=== PATIENT | female | born 1945 | race Caucasian/White ===

== ENCOUNTER 2016-10-04 20:22 | Day surgery (SDC) | payer MEDICARE, MEDICAID ==
[~2016-10-04] VITALS: Ht 149.9 cm; Wt 142.9 kg
[~2016-10-04 20:22] MED LIST: CEPH500T PO; CHOL100055 PO; DIPH25TA54 PO; DOCU-175 PO; GEMF600T3 PO; HYDR-4078 PO; INSU100V13 SQ; INSU100V8 SQ; LEVO150T11 PO; LISI1TAB83 PO; MAGN400T6 PO; MULT-933 PO; NIAC500T22 PO; OXYC1TAB8 PO; PANT40TA PO; PRED5TAB PO; RIVA20TA PO; SOTA80TA PO; SUCR1TAB PO; TIZA4TAB4 PO; TRAM50TA53 PO
--- OUTSIDE RECORDS SUMMARY | 2016-10-04 20:26 | XMS REPORT | Continuity of Care Document ---
Author Author [facility] Organization [facility] Address Unknown Phone Unavailable Support Name Relationship Address Phone JAN MALAGON MD Caregiver [address] [place] [address] Unavailable TYSON JEAN DO Caregiver [address] [place] [address] Unavailable HEATHER THOMAS Next Of Kin [address] [place], [place] [id number] Insurance Providers Guarantor Juliann Rogers Address [address] [address] Email Payer Medicaid Policy Number [id number] Subscriber's Name Juliann Rogers Relationship 18 Self Effective Date 16 Expiration Date 16 Payer Medicare Policy Number [id number] Subscriber's Name Juliann Rogers Relationship 18 Self Advance Directives Directive Response Recorded Date/Time Advanced Directives Type None 05/13/16 12:59pm Chief Complaint and Reason for Visit Chief Complaint Headache Reason for Visit Headache [id number] Problems Active Problems Medical Problem Onset Date Status 13 mm left ureteral stone Unknown Acute ABDOMINAL PAIN,CONSTIPATION Unknown Acute Acute kidney injury Unknown Resolved Acute respiratory failure with hypoxia Unknown Acute Allergic drug rash Unknown Acute Atrial flutter with rapid ventricular response Unknown Resolved Chronic GERD Unknown Chronic Chronic use of steroids Unknown Chronic Diabetes type 2, controlled Unknown Chronic Generalized weakness Unknown Acute Headache Unknown Acute Hypertension Unknown Chronic Hypothyroidism Unknown Chronic Morbid obesity Unknown Chronic Obstructive uropathy Unknown Acute Pulmonary edema Unknown Acute Pyelonephritis Unknown Acute Retained ureteral stent Unknown Acute Septic shock Unknown Resolved Ureterolithiasis Unknown Acute Past Problems Medical Problem Onset Date Chest pain Unknown Fall Unknown Left flank pain Unknown Lipoma of abdominal wall Unknown Narcotic overdose Unknown Polypharmacy Unknown Sepsis Unknown UTI (urinary tract infection) Unknown Ureteral colic Unknown Urinary tract infection Unknown Medications Current Home Medications Medication Dose Units Route Directions Days Qty Instructions Start Date Cephalexin 500 Mg Tablet 500 Mg Oral Twice A Day 05/13/16 Cholecalciferol (Vitamin D3) (Vitamin D) 1,000 Unit Capsule 3,000 Unit Oral Bedtime 05/13/16 Diphenhydramine Hcl (Benadryl Allergy) 25 Mg Tablet 25 Mg Oral Bedtime 05/13/16 Docusate Sodium 100 Mg Capsule 100 Mg Oral Bedtime 05/13/16 Gemfibrozil 600 Mg Tablet 600 Mg Oral Bedtime 01/25/16 Hydrocodone/Acetaminophen ([place] 10-325 Tablet) 10-325 Tablet 1 Tab Oral Three Times A Day as needed for Pain 01/27/16 Insulin Aspart (Novolog) 100 Unit/Ml Inj 30-35 Unit Sub-Q Three Times Daily With Meals 01/25/16 Insulin Glargine,Hum.rec.anlog (Lantus) 100 Unit/Ml Inj 45 Unit Sub-Q Bedtime 03/26/16 Levothyroxine Sodium 150 Mcg Tablet 150 Mcg Oral Before Breakfast 01/25/16 Lisinopril/Hydrochlorothiazide (Lisinopril-Hctz 03/26.5 Tablet) 1 Tab Tablet 0.5 Tab Oral Daily 03/14/10 Magnesium Oxide 400 Mg Tablet 400 Mg Oral Twice A Day 03/26/16 Multivitamin (Multi-Day Vitamins) 1 Each Tablet 1 Tab Oral Daily 04/16/16 Niacinamide (Niacin) 500 Mg Tablet 1,000 Mg Oral Bedtime 05/13/16 Oxycodone Hcl/Acetaminophen (Percocet 5-325 Mg Tablet) 5-325 Tablet 1-2 Tab Oral Every 6 Hours as needed for Pain 15 Tablet Take 1 tablet, by mouth, every 4 hours as needed for pain. 04/16/16 Pantoprazole Sodium (Protonix) 40 Mg Tablet.dr 40 Mg Oral Daily 01/25/16 Prednisone 5 Mg Tablet 5 Mg Oral Daily 05/13/15 Rivaroxaban (Xarelto) 20 Mg Tablet 20 Mg Oral Daily 03/26/16 Sotalol Hcl (Sotalol) 80 Mg Tablet 40 Mg Oral Twice A Day Sucralfate 1 Gm Tablet 1 Gm Oral Four Times Daily 04/16/16 Tizanidine Hcl 4 Mg Tablet 4 Mg Oral Bedtime 01/25/16 Tramadol Hcl (Ultram) 50 Mg Tablet 50 Mg Oral Three Times A Day as needed for Pain 01/25/16 Past Home Medications Medication Directions Ordered Status "Thyroid 180 Mcg" , Daily 04/28/08 Discontinued Amaryl 6 Mg , Twice A Day 04/28/08 Discontinued Cyclobenzaprine Hcl (Flexeril) 5 Mg Tablet, As Needed 04/28/08 Discontinued Furosemide (Lasix) 40 Mg Tablet, Daily 04/28/08 Discontinued Gemfibrozil (Lopid) 600 Mg Tablet, 600 Mg Oral Twice A Day 03/14/10 Discontinued Insulin Glargine (Lantus) 100 U/Ml Vial, 92 Unit Sub-Q Qhs 03/14/10 Discontinued Levothyroxine Sodium 88 Mcg Tablet, 88 Mcg Oral Daily 03/14/10 Discontinued Lisinopril/Hydrochlorothiazide (Lisinopril-Hctz 10.5 Tab) 1 Tab Tablet, 1 Tab Oral Daily 12/07/09 Discontinued Lisinopril/Hydrochlorothiazide (Lisinopril-Hctz 03/26.5 Tab) 1 Tab Tablet, Daily 04/28/08 Discontinued Lopid , Twice A Day 04/28/08 Discontinued Lyrica , 04/28/08 Discontinued [place]-3 Fatty Acids (Fish Oil) 500 Mg Capsule.dr, 3 Tab Oral Twice A Day 13/04 Discontinued Oxycodone , As Needed 04/28/08 Discontinued Potassium Chloride (K-Dur) 20 Meq Tab.prt.sr, 20 Meq Oral Twice A Day Discontinued Prandin 2 Mg , Three Times A Day 04/28/08 Discontinued Prednisone 25 Mg , Daily 04/28/08 Discontinued Rosiglitazone Maleate (Avandia) 4 Mg Tablet, Twice A Day 04/28/08 Discontinued Sennosides (Senna) 8.6 Mg Capsule, 1 Tab Oral Daily 03/14/10 Discontinued Simvastatin (Zocor) 40 Mg Tablet, 80 Mg Oral Daily 03/14/10 Discontinued Torodol , As Needed 04/28/08 Discontinued Ultram , As Needed 04/28/08 Discontinued Social History Social History Problem Response Recorded Date/Time Onset Date Status Chewing Tobacco Status No 04/08/2013 2:28pm Not Applicable Not Applicable Hx Substance Use No 05/13/2016 1:30pm Not Applicable Not Applicable Hx Alcohol Use No 05/13/2016 1:30pm Not Applicable Not Applicable Has the pt used tobacco in the last 12 months No 02/13/2016 5:14pm Not Applicable Not Applicable Tobacco Usage none 05/13/2015 8:47pm Not Applicable Not Applicable Query Response Start Date Stop Date Smoking Status Former smoker Hospital Discharge Instructions No hospital discharge instructions. Plan of Care Discharge Date 05/13/16 3:30pm Disposition 01 DISCHARGED HOME, SELF-CARE Condition at Discharge Stable Instructions/Education Provided DI for Gastroesophageal Reflux Disease (GERD) DI for Headache Prescriptions See Medication Section Referrals JAN MALAGON MD Address: [address] [place] [id number] Additional Instructions/Education Continue with your medications as scheduled for reflux. I would advise that you follow up with Dr. Chavez for reevaluation if your irregular heart rate and irregular blood pressures continue. If you continue to have trouble with your headache then follow up with your primary care provider or return to Er. Care Plan and Goals Physician Care Plan Problem:GERD, chest pain Goal: Follow up with primary care provider Instructions: Take medications and follow care plan as discussed/written Functional Status No functional status results. Allergies, Adverse Reactions, Alerts Allergen Type Severity Reaction Status Last Updated butorphanol tartrate Allergy Intermediate HALLUCINATIONS Active 05/13/16 Iodinated Contrast Media - IV Dye Allergy Severe HIVES, SOA Active Salicylates Allergy Severe SOA, RASH Active 05/13/16 Penicillin Allergy Severe SOA, RASH Active 05/13/16 Sulfa (Sulfonamide Antibiotics) Allergy Severe RASH, SOA Active 05/13/16 Morphine Adverse Reaction Unknown vomiting Active 05/13/16 Codeine Allergy Severe SOA, RASH Active 05/13/16 Aspirin Allergy Severe ANAPHYLACTIC SHOCK Active 05/13/16 Levofloxacin Allergy Severe RASH Active 05/13/16 Latex Allergy Severe SOA,HIVES Active 05/13/16 Immunizations Query Response on File Recorded Date/Time Hx Influenza Vaccination Y fall 201402/13/16 5:14pm Hx Pneumococcal Vaccination Y fall 200602/13/16 5:14pm Hx Influenza Vaccination Y fall 201402/13/16 5:14pm Influenza Vaccine Hx MARCH 2015 05/13/16 1:30pm Vital Signs Acute Vital Signs Vital Response Date/Time Temperature (Fahrenheit) 98.5 deg F (96.8 - 99.1) 05/13/2016 3:30pm Temperature (Calculated Celsius) 36.75795 degrees C (36.0 - 37.3) 05/13/2016 3:30pm Temperature Source Oral 02/20/2016 3:20pm Pulse Rate (adult) 93 bpm (60 - 100) 05/13/2016 3:30pm Respiratory Rate 20 breaths/min (10 - 20) 05/13/2016 3:30pm O2 Sat by Pulse Oximetry 95 % (90 - 100) 05/13/2016 3:30pm Oxygen Delivery Method Nasal Cannula 02/25/2016 9:58am Oxygen Delivery Method Nasal Cannula 02/25/2016 7:17am Oxygen Flow Rate 2.00 L/min 05/13/2016 3:30pm Blood Pressure 175/81 mm Hg 05/13/2016 3:30pm Blood Pressure Source Automatic Cuff 02/25/2016 7:55am Height (Feet) 4 feet 05/13/2016 12:59pm Height (Inches) 11.00 inches 05/13/2016 12:59pm Weight (Kilograms) 134.100 kg 05/13/2016 12:59pm Body Mass Index (BMI) 59.0 05/13/2016 12:59pm Results Laboratory Results Test Name Result Units Flags Reference Collection Date/Time Result Date/ Time Comments Neutrophils % (Manual) 58.0 % 33-66 02/24/2016 4:44am 02/24/2016 5: 22am Band Neutrophils % 2.0 % 0-6 02/24/2016 4:44am 02/24/2016 5:22am Lymphocytes % (Manual) 32.0 % 23-45 02/24/2016 4:44am 02/24/2016 5: 22am Monocytes % (Manual) 5.0 % 0-9.0 02/24/2016 4:44am 02/24/2016 5:22am Eosinophils % (Manual) 3.0 % 0-4 02/24/2016 4:44am 02/24/2016 5:22am Band Neutrophils # 0.2 T/MM3 02/24/2016 4:44am 02/24/2016 5:22am Absolute Neutrophils (Manual) 4.6 T/MM3 1.8-7.7 02/24/2016 4:44am 02/23 5:22am Lymphocytes # (Manual) 2.6 T/MM3 1-4.8 02/24/2016 4:44am 02/24/2016 5: 22am Monocytes # (Manual) 0.4 T/MM3 0-0.8 02/24/2016 4:44am 02/24/2016 5: 22am Eosinophils # (Manual) 0.2 T/MM3 0-0.5 02/24/2016 4:44am 02/24/2016 5: 22am Red Cell Morphology Comment NORMAL 02/24/2016 4:44am 02/24/2016 5: 22am Anisocytosis 1+ 02/13/2016 2:48pm 02/13/2016 3:22pm Total Bilirubin 0.40 MG/DL 0.20-1.30 02/24/2016 4:44am 02/24/2016 5: 21am Alkaline Phosphatase 64 U/L 38-126 02/24/2016 4:44am 02/24/2016 5:21am Total Protein 7.6 G/DL 6.3-8.2 02/24/2016 4:44am 02/24/2016 5:21am Albumin 3.5 G/DL 3.5-5.0 02/24/2016 4:44am 02/24/2016 5:21am Globulin 4.1 G/DL H 2.4-3.6 02/24/2016 4:44am 02/24/2016 5:21am Albumin/Globulin Ratio 0.9 RATIO L 1.1-2.2 02/24/2016 4:44am 02/24/2016 5:21am Aspartate Amino Transf (AST/SGOT) 21 U/L 14-36 02/24/2016 4:44am 2015 5:21am Alanine Aminotransferase (ALT/SGPT) 11 U/L 9-52 02/24/2016 4:44am 02/23 5:21am Magnesium Level 2.1 MG/DL 1.6-2.3 02/25/2016 4:12am 02/25/2016 10:53am Procalcitonin 14.68 NG/ML *H 02/18/2016 3:39am 02/18/2016 5:59am PCT < /=0.5 ng/mL - sepsis not likely; PCT >0.5 and </=2 ng/mL - sepsis possible; PCT >2 ng/mL - sepsis likely; PCT >/=10 ng/mL - systemic inflammatory response - sepsis or septic shock highly indicated. Thyroid Stimulating Hormone (TSH) 3.53 MIU/L 0.47-4.68 02/15/2016 9: 25pm 02/15/2016 10:16pm Urine WBC Clumps FEW 02/13/2016 2:54pm 02/13/2016 3:12pm Glucometer 93 mg/dL 65-110 02/25/2016 11:08am 02/25/2016 1:29pm Plasma Lactate 1.1 MMOL/L 0.6-2.2 03/11/2016 5:17am 03/11/2016 5:33am Urine Squamous Epithelial Cells 5-10 03/11/2016 6:33am 03/11/2016 7 :09am Urine WBC TNTC /HPF H 0-5 03/25/2016 11:45am 03/25/2016 12:49pm Urine RBC 10-20 /HPF H 0-3 03/25/2016 11:45am 03/25/2016 12:49pm Urine Bacteria 2+ H NEGATIVE 03/25/2016 11:45am 03/25/2016 12:49pm Urine Culture Indicated CULT REFLEXED &SETUP 03/25/2016 11:45am 04/2016 12:49pm Lipase 208 U/L 23-300 03/26/2016 8:26pm 03/26/2016 9:18pm Urine Collection Type CLEANCATCH-MIDSTREAM 04/16/2016 12:16pm 04/16 12:28pm Urine Color YELLOW YELLOW 04/16/2016 12:16pm 04/16/2016 12:28pm Urine Turbidity CLEAR CLEAR 04/16/2016 12:16pm 04/16/2016 12:28pm Urine Specific Dixon <=1.005 L 1.015-1.025 04/16/2016 12:16pm 2015 12:28pm Urine pH 6.5 5.0-8.0 04/16/2016 12:16pm 04/16/2016 12:28pm Urine Leukocyte Esterase NEGATIVE NEGATIVE 04/16/2016 12:16pm 2015 12:28pm Urine Nitrite NEGATIVE NEGATIVE 04/16/2016 12:16pm 04/16/2016 12: 28pm Urine Protein NEGATIVE NEGATIVE 04/16/2016 12:16pm 04/16/2016 12: 28pm Urine Glucose (UA) NEGATIVE NEGATIVE 04/16/2016 12:16pm 04/16/2016 12 :28pm Urine Ketones NEGATIVE NEGATIVE 04/16/2016 12:16pm 04/16/2016 12: 28pm Urine Urobilinogen 0.2 EU/DL NORMAL 04/16/2016 12:16pm 04/16/2016 12: 28pm Urine Bilirubin NEGATIVE NEGATIVE 04/16/2016 12:16pm 04/16/2016 12: 28pm Urine Blood TRACE-INTACT A NEGATIVE 04/16/2016 12:16pm 04/16/2016 12: 28pm Urinalysis Comment MICROSCOPIC NOT IND. 04/16/2016 12:16pm 2015 12:28pm White Blood Count 8.1 T/MM3 4.5-11.0 05/13/2016 12:35pm 05/13/2016 1: 20pm Red Blood Count 4.23 M/MM3 4.00-5.20 05/13/2016 12:35pm 05/13/2016 1: 20pm Hemoglobin 11.6 GM/DL L 12-16 05/13/2016 12:35pm 05/13/2016 1:20pm Hematocrit 36.9 % 36-46 05/13/2016 12:35pm 05/13/2016 1:20pm Mean Corpuscular Volume 87.2 UM3 80-100 05/13/2016 12:35pm 05/13/2016 1 :20pm Mean Corpuscular Hemoglobin 27.4 UUG 26-34 05/13/2016 12:35pm 2015 1:20pm Mean Corpuscular Hemoglobin Concent 31.4 GM/DL 31-37 05/13/2016 12:35pm 05/13/2016 1:20pm RDW Standard Deviation 47.9 FL 36.9-50.2 05/13/2016 12:35pm 05/13/2016 1:20pm Platelet Count 305 T/MM3 130-400 05/13/2016 12:35pm 05/13/2016 1:20pm Mean Platelet Volume 10.4 UM3 9.4-12.4 05/13/2016 12:35pm 05/13/2016 1: 20pm Neutrophils (%) (Auto) 69.2 % H 33-66 05/13/2016 12:35pm 05/13/2016 1: 20pm Lymphocytes (%) (Auto) 20.3 % L 23-45 05/13/2016 12:35pm 05/13/2016 1: 20pm Monocytes (%) (Auto) 7.4 % 0-9.0 05/13/2016 12:35pm 05/13/2016 1:20pm Eosinophils (%) (Auto) 2.7 % 0-4 05/13/2016 12:35pm 05/13/2016 1:20pm Basophils (%) (Auto) 0.2 % 0-2 05/13/2016 12:35pm 05/13/2016 1:20pm Immature Granulocyte % (Auto) 0.2 % 0.0-0.5 05/13/2016 12:35pm 2015 1:20pm Absolute Neutrophils (auto) 5.6 T/MM3 1.8-7.7 05/13/2016 12:35pm 2015 1:20pm Absolute Lymphocytes (auto) 1.6 T/MM3 1-4.8 05/13/2016 12:35pm 2015 1:20pm Absolute Monocytes (auto) 0.6 T/MM3 0-0.8 05/13/2016 12:35pm 2015 1:20pm Absolute Eosinophils (auto) 0.2 T/MM3 0-0.5 05/13/2016 12:35pm 2015 1:20pm Absolute Basophils (auto) 0.0 T/MM3 0-0.2 05/13/2016 12:35pm 2015 1:20pm Absolute Immature Granulocyte (auto 0.02 T/MM3 0.00-0.03 05/13/2016 12: 35pm 05/13/2016 1:20pm Icterus Index < 2 0-7 05/13/2016 12:35pm 05/13/2016 1:29pm Chemistry Specimen Hemolysis < 15 0-25 05/13/2016 12:35pm 05/13/2016 1:29pm 0-25: Specimen Exhibited No Hemolysis. Turbidity < 20 0-20 05/13/2016 12:35pm 05/13/2016 1:29pm Sodium Level 143 MEQ/L 134-144 05/13/2016 12:35pm 05/13/2016 1:29pm Potassium Level 4.2 MEQ/L 3.6-5 05/13/2016 12:35pm 05/13/2016 1:29pm Chloride Level 102 MEQ/L 98-107 05/13/2016 12:35pm 05/13/2016 1:29pm Carbon Dioxide Level 29 MEQ/L 22-30 05/13/2016 12:35pm 05/13/2016 1: 29pm Anion Gap 12 MEQ/L 5-15 05/13/2016 12:35pm 05/13/2016 1:29pm Blood Urea Nitrogen 27.0 MG/DL H 7-17 05/13/2016 12:35pm 05/13/2016 1: 29pm Creatinine 1.0 MG/DL 0.7-1.2 05/13/2016 12:35pm 05/13/2016 1:29pm BUN/Creatinine Ratio 27 RATIO H 6-26 05/13/2016 12:35pm 05/13/2016 1: 29pm Glomerular Filtration Rate Calc 55 05/13/2016 12:35pm 05/13/2016 1: 29pm Glucose Level 108 MG/DL 65-110 05/13/2016 12:35pm 05/13/2016 1:29pm Calculated Osmolality 281 MOSM/KG H 261-280 05/13/2016 12:35pm 2015 1:29pm Calcium Level 9.6 MG/DL 8.4-10.2 05/13/2016 12:35pm 05/13/2016 1:29pm Troponin I < 0.012 ng/ml 0-0.12 05/13/2016 12:35pm 05/13/2016 1:41pm Troponin values with a difference of 55% increase from orginal troponin value represent a true biological DELTA value. (%increase Calc=Orginal Troponin value, divided by subsequent Troponin value, multiplied by 100) Microbiology Results Procedure Source Organism/Result Collection Date/Time Result Date/Time Result Status Urine Culture Urine, Wang Indwelling NO GROWTH AFTER 48 HOURS 02/18/2016 5 :55am 02/20/2016 8:16am Final Blood Culture Peripheral/Iv Start NO GROWTH AFTER 5 DAYS 03/11/2016 5:17am 03/16/2016 5:21am Final Urine Culture Urine, Clean Catch-Midstream MANSI PARAPSILOSIS 03/11/2016 7:13am 03/14/2016 10:11am Final Urine Culture Urine, Voided-Not Cc-Midstream ESCHERICHIA COLI 03/25/2016 12 :49pm 03/27/2016 8:23am Final Name: JULIANN ROGERS Unit #: [id number] : 1945 Sex: F Admit Date: Loc / Svc: ED Discharge Date: DIAGNOSTIC IMAGING REPORT Report #: [id number] [facility] ROSA M Coppola Indication: ITS.REASON: chest pressure PROCEDURE: CHEST 1 VIEW: Encounter: Initial Comparison: 03/26/2016 Findings: There is mild prominence of the cardiac silhouette which may be accentuated by the AP portal technique. The lungs are clear. No definite pleural effusion. No mediastinal or hilar adenopathy. 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 Impression: No acute cardiopulmonary process. . Procedures Procedure Status Date Provider(s) CYSTOSCOPY AND TREATMENT Completed 02/13/16 JOAQUÍN BANKS MD REMOVAL OF INTRALUMINAL DEVICE FROM URETER, ENDO Completed 02/20/16 JOAQUÍN BANKS MD METABOLIC PANEL TOTAL CA Completed 02/27/16 CULTURE AEROBIC IDENTIFY Completed 02/27/16 URINE CULTURE/COLONY COUNT Completed 02/27/16 MICROBE SUSCEPTIBLE LISA Completed 02/27/16 ROUTINE VENIPUNCTURE Completed 03/11/16 INSERT BLADDER CATHETER Completed 03/11/16OctoberMAURY DO CT ABD & PELVIS W/O CONTRAST Completed 03/11/16 METABOLIC PANEL TOTAL CA Completed 03/11/16 URINALYSIS AUTO W/SCOPE Completed 03/11/16 ASSAY OF LACTIC ACID Completed 03/11/16 ASSAY OF LIPASE Completed 03/11/16 COMPLETE CBC W/AUTO DIFF WBC Completed 03/11/16 BLOOD CULTURE FOR BACTERIA Completed 03/11/16 BLOOD CULTURE FOR BACTERIA Completed 03/11/16 URINE CULTURE/COLONY COUNT Completed 03/11/16 HYDRATE IV INFUSION ADD-ON Completed 03/11/16 THER/PROPH/DIAG INJ IV PUSH Completed 03/11/16 TX/PRO/DX INJ NEW DRUG ADDON Completed 03/11/16 TX/PRO/DX INJ NEW DRUG ADDON Completed 03/11/16 TX/PRO/DX INJ NEW DRUG ADDON Completed 03/11/16 EMERGENCY DEPT VISIT Completed 03/11/16 [id number] ITEM OR SERVICE Completed 03/11/16 746963"INJECTION, DIPHENHYDRAMINE HCL, UP TO 50 MG" Completed 03/11/16 215053"INJECTION, KETOROLAC TROMETHAMINE, PER 15 MG" Completed 03/11/16 443510"INJECTION, ONDANSETRON HYDROCHLORIDE, PER 1 MG" Completed 03/11/16 372230"INJECTION, FENTANYL CITRATE, 0.1 MG" Completed 03/11/16 367923"INFUSION, NORMAL SALINE SOLUTION , 1000 CC" Completed 03/11/16 URINALYSIS AUTO W/SCOPE Completed 03/25/16 CULTURE AEROBIC IDENTIFY Completed 03/25/16 URINE CULTURE/COLONY COUNT Completed 03/25/16 MICROBE SUSCEPTIBLE LISA Completed 03/25/16 ROUTINE VENIPUNCTURE Completed 03/26/16 CHEST X-RAY 1 VIEW FRONTAL Completed 03/26/16 METABOLIC PANEL TOTAL CA Completed 03/26/16 ASSAY OF LIPASE Completed 03/26/16 ASSAY OF TROPONIN QUANT Completed 03/26/16 COMPLETE CBC W/AUTO DIFF WBC Completed 03/26/16 ELECTROCARDIOGRAM TRACING Completed 03/26/16 THER/PROPH/DIAG INJ IV PUSH Completed 03/26/16 EMERGENCY DEPT VISIT Completed 03/26/16 [id number] ITEM OR SERVICE Completed 03/26/16 [id number] ITEM OR SERVICE Completed 03/26/16 017826"INJECTION, HYDROMORPHONE, UP TO 4 MG" Completed 03/26/16 Compound Drug, Not Otherwise Classified Completed 03/26/16 Encounters Encounter Location Arrival/Admit Date Discharge/Depart Date Attending Provider Departed Emergency Room [facility] 05/13/16 12:57pm 05/13/16 3: 30pm TYSON JEAN DO Departed Emergency Room [facility] 04/16/16 11:24am 04/16/16 1: 50pm OCTOBERMAURY DO Departed Emergency Room [facility] 03/26/16 7:58pm 03/26/16 10: 05pm GEM HOGAN MD [facility] 03/25/16 12:13pm JAN MALAGON MD Departed Emergency Room [facility] 03/11/16 4:32am 03/11/16 8: 40am KOLBY SIMPSON MD Registered Clinic [facility] 02/27/16 12:45pm JAN MALAGON MD Discharged Inpatient [facility] 02/13/16 3:35pm 02/25/16 2:55pm JAN MALAGON MD Recent Diagnosis
--- OUTSIDE RECORDS SUMMARY | 2016-10-04 20:27 | XMS REPORT | Continuity of Care Document ---
Author Author [facility] Organization [facility] Address Unknown Phone Unavailable Allergies Medications Problems Date Dx Coded Attending Type Code Diagnosis Diagnosed By 05/14/2015 JAN MALAGON MD M15.0 Primary generalized (osteo)arthritis 05/14/2015 JAN MALAGON MD M62.81 Muscle weakness (generalized) Procedures Code [place] [address] PT EVALUATION JAN MALAGON MD 04/23/2015 Results Encounters ACCT No. Visit Date/Time Discharge Status Pt. Type Provider Facility Loc./Unit Complaint [id number] 05/15/2015 00:01:00 2014 23:59:00 DIS Outpatient JAN MALAGON MD [id number] 04/23/2015 15:31:00 2014 23:59:00 DIS Outpatient JAN MALAGON MD
--- NOTE | 2016-10-04 20:54 | ERPDOC ---
Departure Disposition Decision Date: Oct 04, 2016 Disposition Decision Time: 23:05 Disposition: 02 TO [facility] Impression Impression Impression: Primary Impression: GI bleeding GI bleed type/associated pathology: anorectal hemorrhage Qualified Codes: K62.5 - Hemorrhage of anus and rectum Additional Impression: UTI (urinary tract infection) Urinary tract infection type: acute cystitis Hematuria presence: with hematuria Qualified Codes: N30.01 - Acute cystitis with hematuria Severity: Moderate Condition: Stable Seen By: Mid-level only Referrals: JAN GANN MD (Family) Problems/Meds/Labs Reviewed?: Yes Medications reviewed and manag: Yes Follow up care ordered?: Yes Mental Status: Alert, Oriented HPI - Abdominal Pain General Chief Complaint: GI Bleed Stated Complaint: CRAMPS LOWER ABD,BLEEDING X 3DAYS Time Seen by Provider: 20:40 Source: patient HPI - Abdominal Pain Initial Comments 71 YO F brought to ED by EMS with report of abdominal cramping, rectal bleeding , dysuria and urinary frequency. Patient states that she has been constipated for past 3 days. She has been straining to pass stool and had had bright red blood with passing of stools. This evening patient inserted a glycerin suppository to help soften stool. Says that when she inserted suppository she had burning in her rectum. Says that rectal bleeding became more profuse after that. Patient also report that she thinks she may have a UTI due to dysuria and urinary frequency the past 3 days. Patient is on Xarelto. Pain Scale: Now: 4/10 (camping and rectal burning) Quality: cramping Location: RLQ, LLQ, suprapubic Associated Symptoms: DENIES: back pain, chest pain, diaphoresis, fatigue, fever /chills, headache, heartburn, nausea/vomiting, rash, shortness of breath, swelling/mass in abdomen, syncope, weakness Allergies: Coded Allergies: Iodinated Contrast Media - Oral and (Verified Allergy, Severe, HIVES, SOA , 10/04/16) Penicillins (Verified Allergy, Severe, SOA, RASH, 10/04/16) Salicylates (Verified Allergy, Severe, SOA, RASH, 10/04/16) Sulfa (Sulfonamide Antibiotics) (Verified Allergy, Severe, RASH, SOA, 10/04) aspirin (Verified Allergy, Severe, ANAPHYLACTIC SHOCK, 10/04/16) codeine (Verified Allergy, Severe, SOA, RASH, 10/04/16) latex (Verified Allergy, Severe, SOA,HIVES, 10/04/16) levofloxacin (Verified Allergy, Severe, RASH, 10/04/16) 'LIPS SWELL SHUT AND I CAN'T BREATHE' butorphanol tartrate (Verified Allergy, Intermediate, HALLUCINATIONS, 10/04) morphine (Verified Adverse Reaction, Unknown, vomiting, 10/04/16) Past History Past Medical History Metabolic: diabetes, hypercholesterolemia, hypertension, hypothyroidism Cardiac: A-fib, DENIES: angina Respiratory: COPD GI: GERD Female: UTI, kidney stones Neurological: fibromyalgia, headaches Musculoskeletal: osteoarthritis Psychological: depression Surgical History General: gallbladder Reproductive/: hysterectomy Family History Family PMH: FOUND: [place], cancer, diabetes, hypertension Vaccines Hx Influenza Vaccination: Yes (fall 2014) Hx Pneumococcal Vaccination: Yes (FALL 2006) Social History Does patient use chewing tobac: No Second Hand Exposure: No Substance Use Type: does not use Alcohol Intake: none Review of Systems Constitutional Constitutional: DENIES: chills, dizziness, fever, weakness Eyes General: DENIES: erythema, exudate Lids/Accessories: DENIES: erythema, swelling ENMT Ears: DENIES: pain Sinuses: DENIES: congestion, rhinorrhea Mouth/Throat: DENIES: sore throat Cardiovascular Cardiac: DENIES: chest pain, murmur Rhythm/Rate: DENIES: palpitations Pulmonary Respiratory: DENIES: cough, dyspnea GI Upper Abdomen: DENIES: nausea, pain, vomiting Lower Abdomen: blood in stool, constipation, pain, see HPI General: dysuria, frequency, urgency Musculoskeletal General: DENIES: joint pain, pain, tenderness Integumentary Skin: DENIES: color change, itching, rash Neurological General: DENIES: ataxia, change in strength, numbness, paralysis/paresis, weakness Psychiatric Psychiatric: DENIES: anxiety, depression, nervousness Physical Exam General General Nourishment: well nourished, well developed, adult, obese General Body Habitus: disheveled Vitals and Pain First Documented Vital Signs Date Time Temp Pulse Resp B/P Pulse Ox O2 Delivery O2 Flow Rate FiO2 10/04/16 20:22 98.1 86 20 179/89 94 Room Air Weight: Kilograms: Height (feet): 4 Height (inches): 11.00 Triage Pain Scale: Eyes (brief) Eyes Brief: found: EOMI ENMT (brief) ENMT Brief: NOT FOUND: nasal exudate, nasal swelling Neck (brief) Neck: FOUND: trachea midline Respiratory (brief) Respiratory: FOUND: clear all baig, equal bilaterally, symmetrical Cardiovascular (brief) Cardiac: FOUND: regular rate, regular rhythm Abdomen Inspection: NOT FOUND: distention Palpation: FOUND: soft, NOT FOUND: involuntary guarding, rebound, tender, voluntary guarding Auscultation: FOUND: normoactive (x4) Rectal: FOUND: external hemorrhoids, gross blood, heme positive stools, sphincter normal tone, NOT FOUND: fissure, fistula, internal hemorrhoids, thrombosed hemorrhoids Musculoskeletal (brief) Musculoskeletal Brief: NOT FOUND: deformity, loss of motion Integumentary (brief) Integumentary Brief: FOUND: dry, pink, warm Neurologic (brief) Neurological Brief: FOUND: motor-no gross deficits, sensory-no gross deficits Psychiatric (brief) Psychiatric Brief: FOUND: alert, oriented Differential Diagnoses Considering: Constipation, Diverticulitis, GI Bleed, Ulcer, UTI, Other ( Hemorrhoids, rectal fissure) Progress Results/Orders Orders Procedure Category Date Status Time Iv Lock (Ed Only) EDM 10/04/16 Transmitted 20:50 Nothing By Mouth (Ed EDM 10/04/16 Transmitted Only) 20:50 Cbc W/Auto LAB 10/04/16 Complete Diff-Reflex Manual 20:50 Cmp - Comprehensive LAB 10/04/16 Complete Metabolic 20:50 Ondansetron Inj PHA 10/04/16 Complete (Zofran) 21:00 UA, LAB 10/04/16 Complete Dip&Micro(Complete) & 22:40 Urine Culture LISA 10/04/16 In Process 22:56 Measure Vital Signs JD 10/04/16 In Process 23:39 Up In Room With Assist JD 10/04/16 In Process 23:39 Npo: Nothing By Mouth DIET 10/05/16 Transmitted Breakfast Iv Lock (Nursing) JD 10/04/16 In Process 23:39 Normal Saline (Normal PHA 10/04/16 In Process Saline Iv) 23:39 Notify Adm Physician JD 10/04/16 In Process In Am 23:39 Physician Consult CONS 10/04/16 Transmitted 23:39 Insulin Glargine PHA 10/04/16 Complete (Lantus) 23:45 Pantoprazole PHA 10/05/16 In Process (Protonix Iv) 09:00 Mag-Al + Sim Liquid PHA 10/04/16 Complete (Maalox) 23:45 Ceftriaxone I.V. (Er PHA 10/04/16 Complete Use Only) (Rocephin 23:45 Hydrocodone/Acetaminophen PHA 10/04/16 Complete ([place] 5/325) 23:45 Place In Facility: ED ADM 10/05/16 Transmitted 00:23 Pantoprazole PHA 10/05/16 Complete (Protonix Iv) 00:30 Lab Results Laboratory Tests Test 10/04/16 21:09 10/04/16 22:40 White Blood Count 9.0T/MM3 Red Blood Count 3.88M/MM3 Hemoglobin 10.7GM/DL Hematocrit 33.6% Mean Corpuscular Volume 86.6UM3 Mean Corpuscular Hemoglobin 27.6UUG Mean Corpuscular Hemoglobin Concent 31.8GM/DL RDW Standard Deviation 47.9FL Platelet Count 304T/MM3 Mean Platelet Volume 9.8UM3 Immature Granulocyte % (Auto) 0.2% Neutrophils (%) (Auto) 77.1% Lymphocytes (%) (Auto) 15.9% Monocytes (%) (Auto) 4.9% Eosinophils (%) (Auto) 1.7% Basophils (%) (Auto) 0.2% Absolute Immature Granulocyte (auto 0.02T/MM3 Absolute Neutrophils (auto) 6.9T/MM3 Absolute Lymphocytes (auto) 1.4T/MM3 Absolute Monocytes (auto) 0.4T/MM3 Absolute Eosinophils (auto) 0.2T/MM3 Absolute Basophils (auto) 0.0T/MM3 Turbidity 21 Sodium Level 147MEQ/L Potassium Level 4.5MEQ/L Chloride Level 106MEQ/L Carbon Dioxide Level 28MEQ/L Anion Gap 13MEQ/L Blood Urea Nitrogen 26.0MG/DL Creatinine 0.8MG/DL Glomerular Filtration Rate Calc 71 BUN/Creatinine Ratio 33RATIO Glucose Level 157MG/DL Calculated Osmolality 290MOSM/KG Calcium Level 9.7MG/DL Total Bilirubin 0.50MG/DL Icterus Index < 2 Aspartate Amino Transf (AST/SGOT) 22U/L Alanine Aminotransferase (ALT/SGPT) 28U/L Alkaline Phosphatase 87U/L Total Protein 8.0G/DL Albumin 4.0G/DL Globulin 4.0G/DL Albumin/Globulin Ratio 1.0RATIO Chemistry Specimen Hemolysis < 15 Urine Collection Type Straight cath Urine Color Yellow Urine Turbidity Sl cloudy Urine pH 6.0 Urine Specific [place] 1.010 Urine Protein Negative Urine Glucose (UA) Negative Urine Ketones Negative Urine Blood Trace-intact Urine Nitrite Positive Urine Bilirubin Negative Urine Urobilinogen 0.2EU/DL Urine Leukocyte Esterase Negative Urine RBC 0-1/HPF Urine WBC 10-20/HPF Urine Bacteria 3+ Urine Culture Indicated Cult reflexed &setup Medications Current ED Medications Ondansetron HCl 4 mg 4 mg O ONCE IV Last administered on 10/04/16 21:16; Start 10/04/16 at 21:00; Stop 10/04/16 at 21:01; Status DC Sodium Chloride (Normal Saline IV) 1,000 ml @ 100 mls/hr Q10H IV Last administered on 10/05/16 00:06; Start 10/04/16 at 23:39 Progress Progress Patient had diarrhea stool on arrial to ED with jemma blood in stool. CBC unremarkable with stable Hgb from previous CMP similar to previous UA positive nitrates with 10-20 WBC I discussed conversation I had with Dr. Gann, labs and needed for admission with patient and answered questions. Consult/PCP Consult/PCP : Time Called: 23:05 Time of first response: 23:35 Type of discussion: Admit Discussion/PCP Discussion Details I discussed patient's HPI, PMH, lab, VS and exam findings with Dr. Gann. Dr. Gann will admit patient observation. Verbal orders given at this time. NARCISO ASKEW APRN Oct 04, 2016 20:54
[2016-10-04] MEDS ORDERED: ONDANSETRON 4mg/2ml INJECTION IV ONE (21:00)
--- OUTSIDE RECORDS SUMMARY | 2016-10-04 21:01 | XMS REPORT | Continuity of Care Document ---
Author Author [facility] Organization [facility] Address Unknown Phone Unavailable Allergies Medications Problems Date Dx Coded Attending Type Code Diagnosis Diagnosed By 05/14/2015 JAN MALAGON MD M15.0 Primary generalized (osteo)arthritis 05/14/2015 JAN MALAGON MD M62.81 Muscle weakness (generalized) Procedures Code [place] [id number] PT EVALUATION JAN MALAGON MD 04/23/2015 Results Encounters ACCT No. Visit Date/Time Discharge Status Pt. Type Provider Facility Loc./Unit Complaint [id number] 05/15/2015 00:01:00 2014 23:59:00 DIS Outpatient JAN MALAGON MD [id number] 04/23/2015 15:31:00 2014 23:59:00 DIS Outpatient JAN MALAGON MD
[2016-10-04 21:18] LABS: BASOPHILS % (AUTO) 0.2 % (0-2); EOSINOPHILS # (AUTO) 0.2 T/MM3 (0-0.5); EOSINOPHILS % (AUTO) 1.7 % (0-4); HCT - HEMATOCRIT 33.6 % (36-46); HGB - HEMOGLOBIN 10.7 GM/DL (12-16); IMMATURE GRANULOCYTE # (AUTO) 0.02 T/MM3 (0.00-0.03); IMMATURE GRANULOCYTE % (AUTO) 0.2 % (0.0-0.5); LYMPHOCYTES # (AUTO) 1.4 T/MM3 (1-4.8); LYMPHOCYTES % (AUTO) 15.9 % (23-45); MEAN CORPUSCULAR HGB 27.6 UUG (26-34); MEAN CORPUSCULAR HGB CONC(MCHC 31.8 GM/DL (31-37); MEAN CORPUSCULAR VOLUME 86.6 UM3 (80-100); MEAN PLATELET VOLUME 9.8 UM3 (9.4-12.4); MONOCYTES # (AUTO) 0.4 T/MM3 (0-0.8); MONOCYTES % (AUTO) 4.9 % (0-9.0); NEUTROPHILS #(AUTO)-ABSOLUTE 6.9 T/MM3 (1.8-7.7); NEUTROPHILS % (AUTO) 77.1 % (33-66); RED BLOOD COUNT 3.88 M/MM3 (4.00-5.20)
[2016-10-04 21:28] LABS: ALKALINE PHOSPHATASE 87 U/L (38-126); ALT (SGPT) 28 U/L (9-52); ANION GAP 13 MEQ/L (5-15); AST (SGOT) 22 U/L (14-36); BUN/CREATININE RATIO 33 RATIO (6-26); CALCIUM 9.7 MG/DL (8.4-10.2); CHLORIDE 106 MEQ/L (98-107); CO2 - CARBON DIOXIDE 28 MEQ/L (22-30); CREATININE 0.8 MG/DL (0.7-1.2); GLOMERULAR FILTRATION RATE 71; GLUCOSE 157 MG/DL (65-110); POTASSIUM 4.5 MEQ/L (3.6-5); SODIUM 147 MEQ/L (134-144)
[2016-10-04 22:48] LABS: BLOOD, URINE TRACE-INTACT (NEGATIVE); COLOR,URINE YELLOW (YELLOW); LEUKOCYTE ESTERASE ,URINE NEGATIVE (NEGATIVE); NITRITE,URINE POSITIVE (NEGATIVE); UROBILINOGEN,URINE 0.2 EU/DL (NORMAL)
[2016-10-04 22:55] LABS: RBC,URINE 0-1 /HPF (0-3)
[2016-10-04 22:56] LABS: BACTERIA,URINE 3+ (NEGATIVE)
[2016-10-04] MEDS ORDERED: HYDROCODONE/APAP 5 mg/325 mg TABLET PO ONE (23:45)
[2016-10-04] MEDS ORDERED: MAG-AL + SIM LIQUID 30 ML UDC PO ONE (23:45)
[2016-10-04] MEDS ORDERED: INSULIN GLARGINE 100 UNIT/ML SQ ONE (23:45)
[2016-10-04] MEDS ORDERED: CEFTRIAXONE I.V. (ER USE ONLY) 1 G in NORMAL SALINE 100 ML IV ONE (23:45)
--- OUTSIDE RECORDS SUMMARY | 2016-10-05 | XMS REPORT | Continuity of Care Document ---
Author Author [facility] Organization [facility] Address Unknown Phone Unavailable Allergies Medications Problems Date Dx Coded Attending Type Code Diagnosis Diagnosed By 05/14/2015 JAN MALAGON MD M15.0 Primary generalized (osteo)arthritis 05/14/2015 JAN MALAGON MD M62.81 Muscle weakness (generalized) Procedures Code [place] [id number] PT EVALUATION JAN MALAGON MD 04/23/2015 Results Encounters ACCT No. Visit Date/Time Discharge Status Pt. Type Provider Facility Loc./Unit Complaint [id number] 05/15/2015 00:01:00 2014 23:59:00 DIS Outpatient JAN MALAGON MD [id number] 04/23/2015 15:31:00 2014 23:59:00 DIS Outpatient JAN MALAGON MD
[2016-10-05] MEDS: NORMAL SALINE 1,000 ML IV SCH ×4 (00:06→22:51)
[2016-10-05] MEDS ORDERED: PANTOPRAZOLE 40mg INJECTION IV ONE (00:30)
--- NOTE | 2016-10-05 01:00 | NUR ---
ADMISSION PATIENT ARRIVED BY CART FROM ER AT THIS TIME. PATIENT AMBULATED FROM CART TO BED WITH STEADY GAIT. VITAL SIGNS STABLE. ADMISSION COMPLETE.
[2016-10-05 01:08] VITALS: BP 133/68; PULSE 76; RESP 16; TEMP 97.6; O2SAT 97
[2016-10-05 01:20] VITALS: Ht 149.9 cm; Wt 142.9 kg
--- NOTE | 2016-10-05 05:27 | NUR ---
SHIFT SUMMARY PATIENT IS ALERT AND ORIENTED X3 THIS SHIFT. VITAL SIGNS STABLE ON 3L NC. PATIENT DENIES N/V. PATIENT REPORTS PAIN AT A 9/10 THIS SHIFT RELATED TO CHRONIC BACK PAIN. 1 TIME DOSE OF PO PAIN MED ADMINISTERED. PATIENT CAN STAND AND PIVOT OR AMBULATE SHORT DISTANCES. PATIENT REPORTED DISCOMFORT AT IV SITE FROM ED, SO NEW SITE WAS STARTED. WILL CONTINUE TO MONITOR.
[2016-10-05 07:30] VITALS: BP 131/67; PULSE 66; PULSE 76; RESP 16; TEMP 96.3; O2SAT 96
[2016-10-05] MEDS ORDERED: ONDANSETRON 4mg/2ml INJECTION IV PRN (08:00)
[2016-10-05] MEDS: MEPERIDINE 100 mg/ml VIAL IV PRN ×5 (08:06→22:57)
[2016-10-05 08:21] LABS: BASOPHILS % (AUTO) 0.4 % (0-2); EOSINOPHILS # (AUTO) 0.2 T/MM3 (0-0.5); EOSINOPHILS % (AUTO) 2.4 % (0-4); HCT - HEMATOCRIT 31.9 % (36-46); HGB - HEMOGLOBIN 9.9 GM/DL (12-16); IMMATURE GRANULOCYTE # (AUTO) 0.02 T/MM3 (0.00-0.03); IMMATURE GRANULOCYTE % (AUTO) 0.3 % (0.0-0.5); LYMPHOCYTES # (AUTO) 1.7 T/MM3 (1-4.8); LYMPHOCYTES % (AUTO) 21.1 % (23-45); MEAN CORPUSCULAR HGB 27.2 UUG (26-34); MEAN CORPUSCULAR VOLUME 87.6 UM3 (80-100); MEAN PLATELET VOLUME 9.8 UM3 (9.4-12.4); MONOCYTES # (AUTO) 0.6 T/MM3 (0-0.8); MONOCYTES % (AUTO) 7.1 % (0-9.0); NEUTROPHILS #(AUTO)-ABSOLUTE 5.4 T/MM3 (1.8-7.7); NEUTROPHILS % (AUTO) 68.7 % (33-66); RED BLOOD COUNT 3.64 M/MM3 (4.00-5.20); WBC - WHITE BLOOD COUNT 7.9 T/MM3 (4.5-11.0)
[2016-10-05 08:30] LABS: ALBUMIN 3.5 G/DL (3.5-5.0); ALKALINE PHOSPHATASE 74 U/L (38-126); ALT (SGPT) 30 U/L (9-52); ANION GAP 10 MEQ/L (5-15); AST (SGOT) 22 U/L (14-36); BUN/CREATININE RATIO 29 RATIO (6-26); CALCIUM 9.2 MG/DL (8.4-10.2); CHLORIDE 109 MEQ/L (98-107); CO2 - CARBON DIOXIDE 30 MEQ/L (22-30); CREATININE 0.8 MG/DL (0.7-1.2); GLOMERULAR FILTRATION RATE 71; GLUCOSE 113 MG/DL (65-110); POTASSIUM 4.2 MEQ/L (3.6-5); SODIUM 149 MEQ/L (134-144)
[2016-10-05 08:31] LABS: LACTATE - LACTIC ACID 1.2 MMOL/L (0.6-2.2)
[2016-10-05] MEDS: INSULIN ASPART 100 UNIT/ML SQ SCH ×3 (08:45→17:36)
[2016-10-05] MEDS: PANTOPRAZOLE 40mg INJECTION IV SCH ×2 (08:46→21:10)
[2016-10-05] MEDS: TIZANIDINE 4 MG TABLET PO SCH ×3 (09:00→21:11)
[2016-10-05] MEDS: SOTALOL 80 MG TABLET PO SCH ×2 (10:53→16:58)
[2016-10-05] MEDS: SUCRALFATE 1 G TABLET PO SCH ×3 (10:53→21:12)
[2016-10-05] MEDS: MAGNESIUM OXIDE 400 MG TABLET PO SCH ×2 (10:53→21:12)
[2016-10-05] MEDS: LISINOPRIL/HCTZ 10mg/12.5mg TABLET PO SCH (10:53)
[2016-10-05] MEDS: PredniSONE 5 MG TABLET PO SCH (10:54)
[2016-10-05] MEDS: LEVOTHYROXINE 150 MCG TABLET PO SCH (10:54)
--- NOTE | 2016-10-05 13:17 | HPF ---
CHIEF COMPLAINT Rectal bleeding. HISTORY OF PRESENT ILLNESS Patient is a 71-year-old female with chief complaint of two day history of rectal bleeding with clots. Patient with pain in lower abdomen as well as ___. She denies any fever or chills. She denies joint pain and rash. She denies any nausea or vomiting, no fever or chills. She denies hematochezia. She denies any disease. She denies any TIA or CVA symptoms. No or . (add to HPI) Patient is as well. PAST MEDICAL HISTORY 1. Kidney stone. 2. Psoriasis. 3. __ 4. Type 2 diabetes. 5. ____ 6. GERD. 7. UTI. 8. __. 9. ____. PAST SURGICAL HISTORY 1. History of gallbladder surgery and appendectomy. 2. Patient has never had colonoscopy in the past. FAMILY HISTORY Coronary artery disease, cancer, diabetes, hypertension. ALLERGIES ___, Dyazide (??) salicylates, ___, ___, Albuterol ? MEDICATIONS Please check in EMR. PHYSICAL EXAMINATION VITAL SIGNS: Blood pressure 130/. Pulse is ___. Temperature 97.6. Respirations 97% on two liters oxygen per nasal cannula. GENERAL: Patient looks ill. . HEENT: Atraumatic, normoactive. . ABDOMEN: . Bowel sounds normoactive. . LABORATORY Sodium 147, potassium __. ___ 7.7. White blood count 9, 304. ___ . ASSESSMENT 1. Acute hematochezia. Rule out lower GI versus upper GI source. 2. Lower abdominal pain. 3. Lower back pain from her fall. 4. Type 2 diabetes needing insulin. 5. Coronary artery disease. 6. ___. 7. Paroxysmal hypertension. 8. Fibromyalgia. 10. ____ PLAN 1. . . . ? MTDD
--- NOTE | 2016-10-05 15:09 | NUR ---
PAIN MED PT USING DEMEROL IV "REGULARLY" THROUGHOUT THE SHIFT. REFUSED TO EVEN TRY ULTRAM- STATING THE DEMEROL WILL TAKE CARE OF HER PAIN BETTER. WHEN ASKED WHERE HER PAIN IS, SHE STATES IT IS IN HER BACK. PT ALSO STATES HER 'LUMBAR PAIN IS PRETTY CONSTANT". USES ONLY ULTRAM PO AT HOME.
--- NOTE | 2016-10-05 16:33 | PNF ---
DATE FINDINGS Mrs. Rogers is a 71-year-old female whom I was asked to see as a new patient as a result of her history for rectal bleeding. The patient states that she was admitted to our hospital about 3 o'clock this morning. Patient states that about three days ago she had a very large, hard stool. States that this occurred after a bout of constipation. Patient states that after having this large hard stool she began to have a component of some bleeding. Patient states that this is not unusual for her and she has had this "happen a couple times in the past." The patient stated this time, however, the bleeding continued and became more profuse in nature. She also had a fair amount of lower abdominal discomfort. As a result of this ongoing bleeding and lower abdominal discomfort. The patient presented to our emergency room facility and was admitted for further care. Upon questioning the patient she denies any family history specifically for colon cancer. She informs me that she has never underwent prior endoscopic evaluation of her colon. PAST MEDICAL HISTORY/PAST SURGICAL HISTORY/MEDICATIONS/ALLERGIES/SOCIAL HISTORY/ FAMILY HISTORY/REVIEW OF SYSTEMS Performed by my nurse practitioner, Graham White. PHYSICAL EXAMINATION Mrs. Siddiqui is a 71-year-old female who this morning did not appear to be in acute distress. VITAL SIGNS: Temperature 96.3, pulse 72, respirations 20, blood pressure 131/67, SAO2 96% on two liters per nasal cannula.. HEENT: Normocephalic. Pupils are equally round and react to light and accommodation. NECK: Supple without lymphadenopathy. CHEST: Clear to auscultation bilaterally. HEART: Regular rate and rhythm. Normal S1 and S2 without gallops, murmurs or clicks. ABDOMEN: Visualization of the abdomen reveals it to be fairly protuberant in nature; i.e. the patient has a component of obesity. Palpation of the abdomen reveals it to be soft and nontender throughout. Although she complained of lower abdominal discomfort upon firm palpation, I could not really appreciate any evidence for guarding or rebound tenderness. Did not appreciate any evidence for hepatomegaly or other abnormal masses. EXTREMITIES: Without clubbing, cyanosis, or edema. NEURO: Cranial nerves II-XII grossly intact. Patient is without focal motor or sensory deficits. LABORATORY/RADIOGRAPHIC EVALUATION Patient's hemoglobin overall has been stable since admission. Last evening it was 10.7; this morning it was 9.9. CMP was obtained and found to have some electrolyte abnormalities. Sodium and chloride are elevated at 149 and 109 respectively. The patient did have a urine culture that was positive revealing greater than 100,000 colony forming units of gram negative rods. She currently is on Rocephin. ASSESSMENT 1. 71-year-old female with multiple medical comorbidities who presents with rectal bleeding and finding of urinary tract infection. PLAN From a general surgical standpoint I do feel the patient should undergo endoscopy for further evaluation for the etiology for her rectal bleeding. Given the fact that she has been on anticoagulation/Xarelto it would be my recommendation that we go ahead and hold off on proceeding with a bowel prep today and hold her Xarelto. I would recommend that tomorrow if she remains stable without evidence of ongoing significant rectal bleeding that we go ahead and proceed with bowel prep tomorrow and proceed with colonoscopy on Thursday. I did discuss the above plan with the patient and the potential risks associated with endoscopy which included but was not inclusive of bleeding and/or perforation requiring surgery. I agree with current management of this patient. I have reviewed admission orders. She is being treated empirically for peptic ulcer disease. She has been treated as stated above for her newly diagnosed urinary tract infection. Will continue to follow along the patient's care. JUDITH
[2016-10-05 16:39] VITALS: BP 117/59; PULSE 70; RESP 16; TEMP 96.3; O2SAT 97
--- NOTE | 2016-10-05 18:10 | NUR ---
SUMMARY PT HAS INCREASED ACTIVITY TO WALKING TO BR AND BACK TO BED. AT BEGINNING OF SHIFT, PT STATED SHE USES ELECTRIC SCOOTER AT HOME AND SO CANNOT WALK TO BR. THROUGH ENCOURAGEMENT BY FRANSICO CARSON, WAS WILLING TO BEGIN WALKING INTO BR. PT ALSO TOLERATING C.L. DIET WELL. NO BLOOD NOTED IN STOOL THIS SHIFT. NO BLOOD NOTED IN OUTPUT AFTER 0730 DOCUMENTATION THIS MORNING.
[2016-10-05] MEDS: DOCUSATE SODIUM 100 MG CAPSULE PO SCH (21:11)
[2016-10-05] MEDS: GEMFIBROZIL 600 MG TABLET PO SCH (21:11)
[2016-10-05] MEDS: DiphenhydrAMINE 25 MG CAPSULE PO SCH (21:11)
[2016-10-05] MEDS: TRAMADOL 50 MG TABLET PO PRN (21:20)
[2016-10-05 21:26] VITALS: PULSE 70; RESP 18
[2016-10-05] MEDS ORDERED: INSULIN GLARGINE 100 UNIT/ML SQ SCH (22:00)
[2016-10-05 23:52] VITALS: BP 114/54; PULSE 72; RESP 16; TEMP 96.3; O2SAT 95
[2016-10-06] MEDS: MEPERIDINE 100 mg/ml VIAL IV PRN ×6 (02:23→23:22)
--- NOTE | 2016-10-06 05:30 | NUR ---
SHIFT SUMMARY PT ALERT AND ORIENTED X3, VITAL SIGNS HAVE BEEN STABLE ON 2L 02 VIA NC. PT DENIES C/P,N/V. SOA ON EXERTION AND ADJUSTING HERSELF IN BED. PT HAS HAD ADEQUATE URINE OUTPUT ON THIS SHIFT. PT HAS NEEDED PRN IV PAIN MEDICATION ALLOWED IN EMAR. PT CONTINUES TO TOLERATE CLEAR LIQUID DIET. PT ALSO CONTINUES TO AMBULATE TO AND FROM THE BR WITH A STANDBY ASSIST. ENCOURAGED TO PROVIDE OWN HYGIENE IN THE BR. WILL CONTINUE TO MONITOR.
[2016-10-06] MEDS: SOTALOL 80 MG TABLET PO SCH ×2 (06:15→18:54)
[2016-10-06] MEDS: LEVOTHYROXINE 150 MCG TABLET PO SCH (06:15)
[2016-10-06] MEDS: SUCRALFATE 1 G TABLET PO SCH ×4 (06:15→22:12)
[2016-10-06 08:39] VITALS: BP 131/63; PULSE 76; RESP 16; TEMP 97.4; O2SAT 94
--- NOTE | 2016-10-06 09:09 | CONSPD ---
Consultation Info Date DATE: 10/06/16 TIME: 09:01 Date of Consultation: Oct 06, 2016 Attending Physician: Azeem Reason for Consultation: GI bleed HPI - Adult Date DATE: 10/06/16 TIME: 09:01 General History of Present Illness Per Dr. Snider Past Medical History Past Medical History Patient's Medical History: (1) Fibromyalgia (2) Pancreatitis (3) Hypertension (4) Diabetes type 2, controlled (5) Chronic GERD (6) GI bleeding (7) Pyelonephritis (8) Morbid obesity (9) Ureterolithiasis (10) Chronic use of steroids (11) A-fib (12) Migraine (13) Hypothyroidism Morbid Obesity. Surgical History Patient's Surgical History: multiple lithotripsies cholecystectomy vaginal hysterectomy partial thyroidectomy Current Medications Home Meds Reported Medications Docusate Sodium (Docusate Sodium) 100 Mg Capsule, 100 MG PO HS 05/13/16 Cephalexin (Cephalexin) 500 Mg Tablet, 500 MG PO BID 05/13/16 Diphenhydramine HCl (Benadryl Allergy) 25 Mg Tablet, 25 MG PO HS 05/13/16 Cholecalciferol (Vitamin D3) (Vitamin D) 1,000 Unit Capsule, 3000 UNIT PO HS 05/13/16 Niacinamide (Niacin) 500 Mg Tablet, 1500 MG PO HS 05/13/16 Multivitamin (Multi-Day Vitamins) 1 Each Tablet, 1 TAB PO DAILY 04/16/16 Sucralfate (Sucralfate) 1 Gm Tablet, 1 GM PO QID 04/16/16 Sotalol HCl (Sotalol) 80 Mg Tablet, 40 MG PO BID 03/26/16 Rivaroxaban (Xarelto) 20 Mg Tablet, 20 MG PO DAILY 03/26/16 Magnesium Oxide (Magnesium Oxide) 400 Mg Tablet, 400 MG PO BID 03/26/16 Insulin Glargine,Hum.rec.anlog (Lantus) 100 Unit/Ml Inj, 90 UNIT SQ HS 03/26/16 Tramadol HCl (Ultram) 50 Mg Tablet, 50 MG PO TID Y for PAIN 01/25/16 Tizanidine HCl (Tizanidine HCl) 4 Mg Tablet, 4 MG PO TID 01/25/16 Pantoprazole Sodium (Protonix) 40 Mg Tablet.dr, 40 MG PO DAILY 8/12/16 Insulin Aspart (Novolog) 100 Unit/Ml Inj, 60 UNIT SQ TIDWM 01/25/16 Levothyroxine Sodium (Levothyroxine Sodium) 150 Mcg Tablet, 150 MCG PO ACB 01/25/16 Gemfibrozil (Gemfibrozil) 600 Mg Tablet, 600 MG PO HS 01/25/16 Prednisone (Prednisone) 5 Mg Tablet, 5 MG PO DAILY 05/13/15 Lisinopril/Hydrochlorothiazide (Lisinopril-Hctz 03/26.5 Tablet) 1 Tab Tablet, 1 TAB PO DAILY 03/14/10 Allergies: Coded Allergies: Iodinated Contrast Media - Oral and (Verified Allergy, Severe, HIVES, SOA , 10/04/16) Penicillins (Verified Allergy, Severe, SOA, RASH, 10/04/16) Salicylates (Verified Allergy, Severe, SOA, RASH, 10/04/16) Sulfa (Sulfonamide Antibiotics) (Verified Allergy, Severe, RASH, SOA, 10/04) aspirin (Verified Allergy, Severe, ANAPHYLACTIC SHOCK, 10/04/16) codeine (Verified Allergy, Severe, SOA, RASH, 10/04/16) latex (Verified Allergy, Severe, SOA,HIVES, 10/04/16) levofloxacin (Verified Allergy, Severe, RASH, 10/04/16) 'LIPS SWELL SHUT AND I CAN'T BREATHE' butorphanol tartrate (Verified Allergy, Intermediate, HALLUCINATIONS, 10/04) morphine (Verified Adverse Reaction, Unknown, vomiting, 10/04/16) Family History Family History: HTN CAD DM Cancer Social History Does patient use chewing tobac: No Second Hand Exposure: No Substance Use Type: does not use Alcohol Intake: none Advance Directives: No DPOA for Healthcare Only GS Review of Systems Ear, Nose, and Throat REPORTS vision problems (wears glasses) Cardiovascular REPORTS irregular heart beat Respiratory REPORTS difficulty breathing Gastrointestional REPORTS other (see HPI) Genitourinary REPORTS other (multiple ureteral and kidney stones) Musculoskeletal REPORTS joint pain, REPORTS muscle weakness Neurological REPORTS other (headaches) Endocrine REPORTS thyroid problems (hypothyroidism) Hematologic REPORTS easy bruising, REPORTS history of blood clots GS Physical Exam Vital Signs Date Time Temp Pulse Resp B/P Pulse Ox O2 Delivery O2 Flow Rate FiO2 10/06/16 08:39 97.4 76 16 131/63 94 Nasal Cannula 2.00 Height (Feet): 4 Height (Inches): 11.00 Weight (Kilograms): 141.100 BMI 62.8 Laboratory Laboratory Tests 10/04/16 21:09 10/05/16 08:09 Laboratory Tests 10/04/16 21:09 10/05/16 08:09 NAEEM SCOTT APRN Oct 06, 2016 09:05 NAEEM SCOTT APRN Oct 06, 2016 09:05
[2016-10-06] MEDS: NORMAL SALINE 1,000 ML IV SCH ×2 (09:22→18:53)
[2016-10-06] MEDS: INSULIN ASPART 100 UNIT/ML SQ SCH ×3 (09:23→18:53)
[2016-10-06] MEDS: MAGNESIUM OXIDE 400 MG TABLET PO SCH ×2 (09:23→22:12)
[2016-10-06] MEDS: PANTOPRAZOLE 40mg INJECTION IV SCH ×2 (09:24→22:12)
[2016-10-06] MEDS: TIZANIDINE 4 MG TABLET PO SCH ×3 (09:24→22:12)
[2016-10-06] MEDS: PredniSONE 5 MG TABLET PO SCH (09:24)
[2016-10-06] MEDS: LISINOPRIL/HCTZ 10mg/12.5mg TABLET PO SCH (09:24)
[2016-10-06 09:38] VITALS: PULSE 76; RESP 16
[2016-10-06] MEDS ORDERED: BISACODYL 5 MG E.C. TABLET PO ONE (10:00)
--- NOTE | 2016-10-06 11:36 | NUR ---
NORM ZHENG VISITED PT. CM EXPLAINED ROLE AND PROVIDED CONTACT INFORMATION. PT PLANS TO RETURN HOME POST STAY AT [facility]. PT WOULD LIKE [facility] POST D/C. PT DOES HAVE HOME OXYF=GEN SUPPLIED BY [facility]. PT IS AWARE TO CONTACT CM IF NEEDS ARISE.
[2016-10-06] MEDS ORDERED: POLYETHYL.GLYCOL 3350 BOTTLE 238 GM PO ONE (13:00)
[2016-10-06 16:41] VITALS: BP 148/66; PULSE 65; RESP 18; TEMP 97.5; O2SAT 95
[2016-10-06] MEDS ORDERED: CEFTRIAXONE 1 G in NORMAL SALINE 100 ML IV SCH (18:00)
--- NOTE | 2016-10-06 19:14 | HPF ---
REDICTATION CHIEF COMPLAINT Rectal bleeding. HISTORY OF PRESENT ILLNESS The patient is a 71-year-old female who presented to [facility] ER with chief complaint of an approximately tcm-jt-cijhy-day history of rectal bleeding with some occasional clots. She also complained of lower abdominal pain. She denies any nausea or vomiting initially. No fever or chills. Denies melena. REVIEW OF SYSTEMS Patient denies chest pain, orthopnea, PND, leg-swelling. Denies melena. No hemoptysis. Denies any urinary tract infection symptoms or CVA symptoms at this time. ALLERGIES Iodine contrast media, oral. Penicillin, salicylates, sulfa, aspirin, codeine, latex, Levaquin, morphine, butorphanol titrate. PAST MEDICAL HISTORY 1. Recurrent kidney stones. 2. Fibromyalgia. 3. Migraine headache. 4. Osteoarthritis, multiple areas. 5. Psoriasis. 6. Urethral stones, status post stent placement. 7. Type 2 diabetes mellitus needing insulin. 8. Dyslipidemia. 9. Hypothyroidism. 10. GERD. PAST SURGICAL HISTORY 1. Hysterectomy. 2. Gallbladder surgery. FAMILY HISTORY Coronary artery disease, cancer, diabetes, hypertension. CURRENT MEDICATIONS 1. Cephalexin 500 mg p.o. b.i.d. 2. Vitamin D3 1000 unit capsule - three capsules at bedtime. 3. Benadryl 25 mg one tablet at bedtime. 4. Docusate sodium 100 mg p.o. q.h.s. 5. Gemfibrozil 600 mg one tablet at bedtime. 6. NovoLog 60 units subcutaneously t.i.d. with meals. 7. Lantus 90 units at bedtime. 8. Levothyroxine 150 mcg one tablet with breakfast. 9. Lisinopril/hydrochlorothiazide 10/12.5 mg one tablet daily. 10. Magnesium oxide 400 mg one tablet p.o. b.i.d. 11. Multivitamin one tablet daily. 12. Niacin 500 mg two tablets at bedtime. 13. Protonix 40 mg one tablet daily. 14. Prednisone 5 mg one tablet daily. 15. Xarelto 20 mg one tablet daily. 16. Sotalol 40 mg p.o. b.i.d. 17. Sucralfate 1 g p.o. q.i.d. 18. Tizanidine 4 mg one tablet p.o. t.i.d. 19. Tramadol 50 mg one tablet p.o. t.i.d. p.r.n. PHYSICAL EXAM VITAL SIGNS: Blood pressure 132/68, pulse 76, respirations 16, temperature 97.6. Oxygen saturation 97% on 3 L/nasal cannula. GENERAL: The patient looks overall comfortable, but tired. HEENT: Unremarkable. NECK: Supple. CHEST: Lungs are clear to auscultation bilaterally. CARDIOVASCULAR: Regular rate and rhythm. ABDOMEN: Soft. Patient is tender in the hypogastric region bilaterally. Bowel sounds are normoactive. EXTREMITIES: No cyanosis or clubbing. There is chronic edema which is not new in this patient. LABORATORY CBC: WBC 9000, hemoglobin 10.7, platelet count 304,000. CMP: Sodium 147, potassium 4.5, glucose 157, calcium 9.7, AST 22, ALT 28, alkaline phosphatase 87, albumin 4.0, serum lactate 1.2. UA did show evidence of positive nitrite, 10-20 WBC, 3+ bacteria, trace-intact blood. Culture and sensitivity is pending. ASSESSMENT 1. 71-year-old female with acute rectal bleeding. 2. Hypogastric abdominal pain. 3. Hypernatremia. 4. Type 2 diabetes mellitus needing insulin. 5. History of coronary artery disease. Patient has no evidence of acute myocardial infarction at this time. 6. Hypertension. 7. Fibromyalgia. 8. Hypothyroidism. 9. Exogenous obesity. 10. Urinary tract infection NOS at this time. PLAN 1. Admit patient to surgical floor on observation basis. 2. Surgical consultation has been initiated with Dr. Snider. 3. Follow serial hemoglobins and electrolytes closely. 4. Continue IV fluids. 5. Continue Rocephin 1 g IV daily for now. 6. Patient was started on a clear liquid diet until seen by General Surgery. 7. Hold Xarelto at this time. 8. Follow urine culture. MTDD
[2016-10-06 19:27] VITALS: BP 131/56; PULSE 66; RESP 18; TEMP 98.1; O2SAT 98
--- NOTE | 2016-10-06 19:31 | PNF ---
DATE 10/06/2016 SUBJECTIVE The patient was lying flat on the bed in room 107 on surgical floor at [facility] this evening when I saw her on rounds. She feels like she is getting better. She has not had any rectal bleeding lately. She is able to hold a clear liquid diet without difficulty. She is currently having bowel preparation in anticipation for a colonoscopy to be done tomorrow by Dr. Snider. PHYSICAL EXAM GENERAL: The patient looks comfortable, in no distress. She actually is very cheerful today. VITAL SIGNS: Blood pressure 117/59, pulse 70, respirations 16, temperature 96.3. Pulse oximetry shows Soa2 97% on room air. LABORATORY None today. ASSESSMENT same as yesterday. PLAN 1. Add CBC and BMP to lab today. 2. Continue IV fluids, D5 1/4 NS in light of the sodium of 149. 3. Restart Rocephin 1 g IV until we know culture and sensitivity. 4. Continue home medications. MTDD
--- NOTE | 2016-10-06 19:47 | NUR ---
SHIFT SUMMARY PATIENT IS ALERT AND ORIENTED X3. PATIENT VITALS ARE STABLE AND PATIENT IS ON 2L 02 VIA NC. PATIENT COMPLETED ORDERED BOWEL PREP. PATIENT IS UP AD TERRY AT TIMES AND ALSO 1X WITH MINIMAL ASSISTANCE. PATIENT DENIES NAUSEA, SOA, AND CP. WILL CONTINUE TO MONITOR.
[2016-10-06 19:51] LABS: HCT - HEMATOCRIT 31.2 % (36-46); HGB - HEMOGLOBIN 9.7 GM/DL (12-16); MEAN CORPUSCULAR HGB 27.3 UUG (26-34); MEAN CORPUSCULAR HGB CONC(MCHC 31.1 GM/DL (31-37); MEAN CORPUSCULAR VOLUME 87.9 UM3 (80-100); MEAN PLATELET VOLUME 9.5 UM3 (9.4-12.4); RED BLOOD COUNT 3.55 M/MM3 (4.00-5.20); WBC - WHITE BLOOD COUNT 7.9 T/MM3 (4.5-11.0)
[2016-10-06 20:01] LABS: ANION GAP 12 MEQ/L (5-15); BUN/CREATININE RATIO 18 RATIO (6-26); CALCIUM 8.6 MG/DL (8.4-10.2); CHLORIDE 106 MEQ/L (98-107); CO2 - CARBON DIOXIDE 26 MEQ/L (22-30); CREATININE 0.8 MG/DL (0.7-1.2); GLOMERULAR FILTRATION RATE 71; GLUCOSE 111 MG/DL (65-110); POTASSIUM 3.8 MEQ/L (3.6-5); SODIUM 144 MEQ/L (134-144)
[2016-10-06 20:08] VITALS: PULSE 66; RESP 16
[2016-10-06 20:17] LABS: ANISOCYTOSIS 1+; BAND NEUTROPHILS # 0.5 T/MM3; LYMPHOCYTES # (MANUAL) 1.3 T/MM3 (1-4.8); MONOCYTES # (MANUAL) 0.4 T/MM3 (0-0.8); NEUTROPHILS #(MANUAL)-ABSOLUTE 5.7 T/MM3 (1.8-7.7); POIKILOCYTOSIS 1+; TOTAL CELLS COUNTED 100 %
[2016-10-06] MEDS: TRAMADOL 50 MG TABLET PO PRN (20:56)
[2016-10-06] MEDS: GEMFIBROZIL 600 MG TABLET PO SCH (22:12)
[2016-10-06] MEDS: DiphenhydrAMINE 25 MG CAPSULE PO SCH (22:12)
[2016-10-06] MEDS: DOCUSATE SODIUM 100 MG CAPSULE PO SCH (22:12)
[2016-10-06] MEDS ORDERED: FLEET PHOSPHO-SODA 133 ML ENEMA RECTALLY ONE (22:30)
--- NOTE | 2016-10-06 23:05 | NUR ---
PROVIDER NOTIFICATION YOLIE POLLARD WAS NOTIFIED OF PT STOOL NOT REACHING CLEAR AT THIS TIME. TURNTABLE WORKER NOTIFIED THIS RN TO ADMINISTER A FLEETS ENEMA NOW AND ANOTHER IF STOOL ISN'T YET CLEAR. WILL CONTINUE TO MONITOR.
--- NOTE | 2016-10-06 23:06 | NUR ---
STOOL PT WAS ASSISTED TO THE BSC BY THE WASTE MANAGEMENT ENGINEER. WASTE MANAGEMENT ENGINEER NOTIFIED RN THAT PT BM APPEARED CLEAR. THIS RN VISUALIZED STOOL AND FOUND THAT BM HAS BECOME CLEAR WITHOUT ADMINISTERING THE FLEETS ENEMA. WILL CONTINUE TO MONITOR. IF NEXT STOOL ISN'T CLEAR A FLEETS WILL BE ADMINISTERED.
[2016-10-07] VITALS (22 sets, daily range): BP systolic 108–198; BP diastolic 43–93; PULSE 62–86; RESP 12–20; TEMP 96.4–99.3; O2SAT 92–97
[2016-10-07] MEDS: MEPERIDINE 100 mg/ml VIAL IV PRN ×4 (03:20→16:46)
[2016-10-07] MEDS: NORMAL SALINE 1,000 ML IV SCH (04:20)
[2016-10-07] MEDS: TRAMADOL 50 MG TABLET PO PRN ×2 (04:20→13:58)
[2016-10-07 05:17] LABS: HCT - HEMATOCRIT 32.4 % (36-46); HGB - HEMOGLOBIN 9.8 GM/DL (12-16); MEAN CORPUSCULAR HGB 26.5 UUG (26-34); MEAN CORPUSCULAR HGB CONC(MCHC 30.2 GM/DL (31-37); MEAN CORPUSCULAR VOLUME 87.6 UM3 (80-100); MEAN PLATELET VOLUME 9.9 UM3 (9.4-12.4); WBC - WHITE BLOOD COUNT 7.1 T/MM3 (4.5-11.0)
[2016-10-07 05:30] LABS: ALBUMIN 3.3 G/DL (3.5-5.0); ALKALINE PHOSPHATASE 83 U/L (38-126); ALT (SGPT) 28 U/L (9-52); ANION GAP 11 MEQ/L (5-15); AST (SGOT) 24 U/L (14-36); BUN/CREATININE RATIO 19 RATIO (6-26); CALCIUM 8.6 MG/DL (8.4-10.2); CHLORIDE 106 MEQ/L (98-107); CO2 - CARBON DIOXIDE 28 MEQ/L (22-30); CREATININE 0.7 MG/DL (0.7-1.2); GLOMERULAR FILTRATION RATE 82; GLUCOSE 93 MG/DL (65-110); POTASSIUM 3.9 MEQ/L (3.6-5); SODIUM 145 MEQ/L (134-144); TOTAL PROTEIN 6.7 G/DL (6.3-8.2)
[2016-10-07 05:35] LABS: BAND NEUTROPHILS # 0.3 T/MM3; EOSINOPHILS # (MANUAL) 0.1 T/MM3 (0-0.5); LYMPHOCYTES # (MANUAL) 1.2 T/MM3 (1-4.8); MONOCYTES # (MANUAL) 0.4 T/MM3 (0-0.8); NEUTROPHILS #(MANUAL)-ABSOLUTE 5.1 T/MM3 (1.8-7.7); NUCLEATED RED BLOOD CELLS 1; TOTAL CELLS COUNTED 100 %
[2016-10-07 05:36] LABS: ANISOCYTOSIS 1+; POIKILOCYTOSIS 1+
--- NOTE | 2016-10-07 05:43 | NUR ---
SHIFT SUMMARY PT IS ALERT AND ORIENTED X3, VITAL SIGNS REMAIN STABLE ON ROOM AIR. DENIES C/P,N/V. SOA PRESENT DURING AMBULATION AND REPOSITIONING. PT HAS HAD NO FURTHER STOOLS, LAST ONE WAS MOSTLY CLEAR JUST BEFORE MIDNIGHT. PATIENT HAS BEEN NPO SINCE MIDNIGHT WITH INSTRUCTIONS TO GIVE MEDICATION WITH A SIP OF WATER IN THE AM. WILL CONTINUE TO MONITOR.
[2016-10-07] MEDS: SOTALOL 80 MG TABLET PO SCH ×2 (05:58→16:48)
[2016-10-07] MEDS: SUCRALFATE 1 G TABLET PO SCH ×3 (05:59→16:46)
[2016-10-07] MEDS: LEVOTHYROXINE 150 MCG TABLET PO SCH (05:59)
[2016-10-07] MEDS: PredniSONE 5 MG TABLET PO SCH (07:12)
[2016-10-07] MEDS: LISINOPRIL/HCTZ 10mg/12.5mg TABLET PO SCH (07:12)
[2016-10-07] MEDS: PANTOPRAZOLE 40mg INJECTION IV SCH ×2 (07:26→21:00)
[2016-10-07] MEDS: MAGNESIUM OXIDE 400 MG TABLET PO SCH ×2 (07:39→21:00)
[2016-10-07] MEDS: INSULIN ASPART 100 UNIT/ML SQ SCH ×3 (07:39→18:37)
[2016-10-07] MEDS: TIZANIDINE 4 MG TABLET PO SCH ×3 (07:39→21:00)
--- NOTE | 2016-10-07 08:30 | NUR ---
OFF UNIT PT TO SURGERY AT THIS TIME PER CART ACCOMPANIED BY PREOP STAFF
--- NOTE | 2016-10-07 08:33 | PNSURG ---
Subjective DATE: 10/07/16 TIME: 08:30 Interval History Bowel prep and 1 fleets yesterday, nursing reports stools are clear. Patient states she is hungry, denies pain. Plan EGD colonoscopy this am. Objective Vital Signs Date Time Temp Pulse Resp B/P Pulse Ox O2 Delivery O2 Flow Rate FiO2 10/07/16 08:28 18 10/07/16 07:41 82 10/07/16 07:05 96.4 143/66 92 Room Air 10/07/16 00:05 2.00 Height (Feet): 4 Height (Inches): 11.00 Weight (Kilograms): 142.900 BMI 62.8 General Appearance: Alert, Obese, Orientated x 3 Comments nonlabored, on oxygen by CA Laboratory Laboratory Tests 10/04/16 21:09 10/05/16 08:09 10/06/16 19:43 10/07/16 04:42 Laboratory Tests 10/04/16 21:09 10/05/16 08:09 10/06/16 19:43 10/07/16 04:42 Assessment & Plan Problems: (1) GI bleeding Status: Acute Qualifiers: GI bleed type/associated pathology: anorectal hemorrhage Qualified Codes: K62.5 - Hemorrhage of anus and rectum (2) Chronic GERD Status: Chronic Assessment plan EGD and colonoscopy this morning, Talked with Dr. Gann, hoping for discharge later today. DVT Prophylaxis: SCD'S Code Status Full Code Hospital Course Summary Disclaimer The visit summary below is not to be considered part of the above Progress Note. NAEEM SCOTT APRN Oct 07, 2016 08:33
[2016-10-07] MEDS ORDERED: LIDOCAINE VISCOUS 2% Oral Soln 15ml UD ONE ×2 (09:06→09:39)
--- NOTE | 2016-10-07 09:06 | ANESPREOP ---
Anesthesia Record Date and Time DATE: 10/07/16 TIME: 09:01 Pre-Op Diagnosis GI bleeding rectal bleeding Proposed Surgical Procedure egd colonoscopy Allergies: Coded Allergies: Iodinated Contrast Media - Oral and (Verified Allergy, Severe, HIVES, SOA , 10/04/16) Penicillins (Verified Allergy, Severe, SOA, RASH, 10/04/16) Salicylates (Verified Allergy, Severe, SOA, RASH, 10/04/16) Sulfa (Sulfonamide Antibiotics) (Verified Allergy, Severe, RASH, SOA, 10/04) aspirin (Verified Allergy, Severe, ANAPHYLACTIC SHOCK, 10/04/16) codeine (Verified Allergy, Severe, SOA, RASH, 10/04/16) latex (Verified Allergy, Severe, SOA,HIVES, 10/04/16) levofloxacin (Verified Allergy, Severe, RASH, 10/04/16) 'LIPS SWELL SHUT AND I CAN'T BREATHE' butorphanol tartrate (Verified Allergy, Intermediate, HALLUCINATIONS, 10/04) morphine (Verified Adverse Reaction, Unknown, vomiting, 10/04/16) Ht/Wt/BMI Height: 4 ' 11.00 " Weight: 142.900 kg BMI: 62.8 kg/m2 Vital Signs Date Time Temp Pulse Resp B/P Pulse Ox O2 Delivery O2 Flow Rate FiO2 10/07/16 08:51 97.9 84 20 198/93 94 Nasal Cannula 2.00 Medications Inpatient Medications Current Medications Medications (Trade) Dose Ordered Sig/Gume Start Time Stop Time Status Last Admin Dose Admin Sodium Chloride (Normal Saline IV) 1,000 ml @ 100 mls/hr Q10H 10/04/16 23:39 10/07/16 04:20 100 MLS/HR Pantoprazole Sodium (Protonix Iv) 40 mg BID 10/05/16 09:00 10/07/16 07:26 40 MG Diphenhydramine HCl (Benadryl) 25 mg HS 10/05/16 22:00 10/06/16 22:12 25 MG Docusate Sodium (Colace) 100 mg HS 10/05/16 22:00 10/06/16 22:12 100 MG Gemfibrozil (Lopid) 600 mg HS 10/05/16 22:00 10/06/16 22:12 600 MG Insulin Aspart (Novolog) 30 unit TIDWM 10/05/16 08:00 10/06/16 18:53 30 UNIT Insulin Glargine (Lantus) 45 unit HS 10/05/16 22:00 Future hold 10/05/16 21:11 45 UNIT Levothyroxine Sodium (Synthroid) 150 mcg ACB 10/05/16 08:04 10/07/16 05:59 150 MCG HCTZ/Lisinopril (Prinzide 10/ 12.5) 1 tab DAILY 10/05/16 09:00 10/07/16 07:12 1 TAB Magnesium Oxide (Magox) 400 mg BID 10/05/16 09:00 10/06/16 22:12 400 MG Prednisone (PredniSONE) 5 mg DAILY 10/05/16 09:00 10/07/16 07:12 5 MG Sotalol HCl (Betapace) 40 mg ACBID 10/05/16 09:00 10/07/16 05:58 40 MG Sucralfate (Carafate) 1 g ACHS 10/05/16 11:30 10/07/16 05:59 1 G Tizanidine HCl (Zanaflex) 4 mg TID 10/05/16 09:00 10/06/16 22:12 4 MG Tramadol HCl (Ultram) 50 mg TID PRN 10/05/16 08:00 10/07/16 04:20 50 MG Ondansetron HCl (Zofran) 4 mg Q4-6H PRN 10/05/16 08:00 Meperidine HCl 50 mg 50 mg Q3H PRN 10/05/16 08:00 10/07/16 07:10 50 MG Ceftriaxone Sodium 1 g/Sodium Chloride 100 ml @ 200 mls/hr DAILY 10/06/16 18:00 10/07/16 06:13 DC 10/06/16 18:53 200 MLS/HR Ceftriaxone Sodium/Sodium Chloride (Rocephin/NS) 100 ml @ 200 mls/hr Q24H 10/07/16 18:00 Cephalexin (Cephalexin) 500 Mg Tablet, 500 MG PO BID, (Reported) Last Taken: on 10/04/16 0800 Cholecalciferol (Vitamin D3) (Vitamin D) 1,000 Unit Capsule, 3,000 UNIT PO HS, (Reported) Last Taken: on 10/03/161999 Diphenhydramine HCl (Benadryl Allergy) 25 Mg Tablet, 25 MG PO HS, (Reported) Last Taken: on 10/03/161999 Docusate Sodium (Docusate Sodium) 100 Mg Capsule, 100 MG PO HS, (Reported) Last Taken: on 10/03/161999 Gemfibrozil (Gemfibrozil) 600 Mg Tablet, 600 MG PO HS, (Reported) Last Taken: on 10/03/161999 Insulin Aspart (Novolog) 100 Unit/Ml Inj, 60 UNIT SQ TIDWM, (Reported) Last Taken: on 10/04/161799 Insulin Glargine,Hum.rec.anlog (Lantus) 100 Unit/Ml Inj, 90 UNIT SQ HS, (Reported) Last Taken: on 10/03/161999 Levothyroxine Sodium (Levothyroxine Sodium) 150 Mcg Tablet, 150 MCG PO ACB, (Reported) Last Taken: on 10/04/16 08 Lisinopril/Hydrochlorothiazide (Lisinopril- Hctz 10/12.5 Tablet) 1 Tab Tablet, 1 TAB PO DAILY, (Reported) Last Taken: on 10/04/16 08 Magnesium Oxide (Magnesium Oxide) 400 Mg Tablet , 400 MG PO BID, (Reported) Last Taken: on 10/04/16 08 Multivitamin (Multi-Day Vitamins) 1 Each Tablet , 1 TAB PO DAILY, (Reported) Last Taken: on 10/04/16 08 Niacinamide (Niacin) 500 Mg Tablet, 1,500 MG PO HS, (Reported) Last Taken: on 10/03/161999 Pantoprazole Sodium (Protonix) 40 Mg Tablet.dr , 40 MG PO DAILY, (Reported) Last Taken: on 10/04/16 08 Prednisone (Prednisone) 5 Mg Tablet, 5 MG PO DAILY, (Reported) Last Taken: on 10/04/16 08 Rivaroxaban (Xarelto) 20 Mg Tablet, 20 MG PO DAILY, (Reported) Last Taken: on 10/03/161999 Sotalol HCl (Sotalol) 80 Mg Tablet, 40 MG PO BID, (Reported) Last Taken: on 10/04/16 0800 Sucralfate (Sucralfate) 1 Gm Tablet, 1 GM PO QID, (Reported) Last Taken: on 10/04/16 1200 Tizanidine HCl (Tizanidine HCl) 4 Mg Tablet, 4 MG PO TID, (Reported) Last Taken: on 10/04/16 1200 Tramadol HCl (Ultram) 50 Mg Tablet, 50 MG PO TID PRN for PAIN, (Reported) Last Taken: on Unknown Date & Time Currently on Beta Taylor: Yes Beta Taylor Last Taken: SOTALOL 10/07/16 0712 Medical/Surgical History Anesthesia PMH: Reports: *Diabetes, *Dyspnea (WITH EXERTION), *Hypertension, Anesthesia Reactions ("ONE TIME, FELT LIKE I COULDN'T BREATH" HAS HAD SINCE THEN WITH NO PROBLEMS), Arthritis (GENERALIZED), Cardiac Arrythmia (AFIB), Hepatitis (HX HEPATITIS A), Obesity, Pneumonia ("YEARS AGO"), Reflux, Renal Disease (HX KIDNEY STONES), Thyroid Disease (HYPOTHYROIDISM), Denies: *Angina, * NH, Asthma, Blood Transfusion Reac, CHF, COPD, CVA/Stroke/TIA, Cancer, Clotting Problems, Deep Vein Thrombosis, Glaucoma, Hiatal Hernia, Malignant Hyperthermia , Pacemaker, Seizures, Sleep Apnea, Tuberculosis Use Chewing Tobacco?: No Second Hand Exposure: No Substance Use Type: does not use Past Surgical History Orthopedic Surgeries: No Abdominal Surgeries: No Genitourinary Surgeries: Yes - LITHOTRIPSY FOR KIDNEY STONES Cardiac Surgeries: No Endocrine Surgeries: Yes - THYROID - NODULE Reproductive Surgeries: Yes - HYSTO Neurological Surgeries: No Ear Surgeries: No Nose Surgeries: No Throat Surgeries: No Other Surgeries: Yes - GALLBLADDER Anesthesia Adverse Reactions: FOUND none Family Hx of Anesthesia Advers: none Hx of Motion Sickness: No Pertinent Findings Laboratory Tests 10/07/16 04:42 EKG Rhythm: Sinus Tachycardia Physical Exam Respiratory: Bilat breath sounds equal, Lungs clear Cardiovascular: FOUND Regular rate, rhythm, FOUND No murmur Airway Assessment Mallampati Score: II TMD: 2 Fingerbreadths Neck Extension: Fair Teeth: Upper Dentures, Lower Dentures Overall Assessment: May Be Diff Mask Vent., May Be Diff Intubation Plan Anesthesia Plan: MAC Discussion Discussed risks/options/alternatives of anesthesia and questions answered. Patient consents. Nursing pain assessment noted. Attestation Statement Prior to the delivery of any anesthetic medication, I examined the patient, developed the plan, obtained the patient's consent and discussed the risk and benefits of the procedure with the patient/guardian. SUZANNE MCGINNIS CRNA Oct 07, 2016 09:04
[2016-10-07] MEDS ORDERED: FENTANYL 100mcg/2ml INJECTION ONE ×2 (09:10→09:34)
[2016-10-07] MEDS ORDERED: BENZOCAINE 20% Top. Anesth. SPRAY UD ONE (09:14)
[2016-10-07] MEDS ORDERED: MIDAZOLAM 2mg/2ml INJECTION ONE ×2 (09:15→09:33)
--- NOTE | 2016-10-07 10:10 | GSPOSTPN ---
Endoscopy Procedure Procedure Surgeon: Tylor Anesthesia: MAC ASA: 4 Procedure: Colonoscopy-snare polypectomy, EGD-polypectomy w/forceps Diagnosis Preop Diagnosis rectal bleeding, epigastric pain Postop Colonoscopy Diagnosis Postop Colonoscopy Diagnosis: Diverticulosis Polyps at (cm): 10 cm, 20 cm, 60 cm Postop EGD Diagnosis Postop EGD Diagnosis: FOUND Irregular GE junction, FOUND Other Comments gastric polyps Complications Complications Endoscopy Complications: None Estimated Blood Loss See Anesthesia Record. Vital Signs See Anesthesia and PACU record. FUAD SMITH MD, FACS, CWS Oct 07, 2016 10:10
--- NOTE | 2016-10-07 11:22 | PNF ---
DATE 10/07/2016 SUBJECTIVE The patient was lying in bed in Room 107 this morning when I saw her. She doesn't voice any new complaint. Nausea and vomiting has improved significantly. Lower abdominal pain is much there but it is better. She has a hard time with her blood sugar. Finally able to correct that this morning. She feels good about that. She had _mild depression?_ last night. She has had quite a lot of diarrhea this morning. Patient is scheduled for a colonoscopy at [address] Snider this morning. PHYSICAL EXAM GENERAL: The patient looks more comfortable today than yesterday and the day before as well. VITAL SIGNS: Blood pressure 142/66 with temperature 96.4, O2 sat 92% on room air, pulse 82, respiration 16. NECK: Supple. LUNGS: Clear. CARDIOVASCULAR: Regular rate and rhythm. ABDOMEN: Soft. Minimal tenderness in the lower abdominal region. Bowel sounds normoactive. EXTREMITIES: No significant changes. NEURO EXAM: Grossly intact. LABORATORY Hemoglobin is steady at 9.8. Sodium is down to 145 from 149 yesterday. Potassium 3.9. Blood sugars in the last six hours have run between 71 and 92. ASSESSMENT 1. Rectal bleeding, improving. 2. Anemia, ypdie-fq-leryesg. Actually hemoglobin level is almost back to baseline. 3. Mild hyperglycemia with symptoms earlier. 4. Hypogastric abdominal pain. 5. Hypernatremia, much improved. 6. Type 2 diabetes, needing insulin. Blood sugars waxing and waning. 7. History of coronary artery disease, recently quiescent. 8. Fibromyalgia. Symptoms are well controlled. 9. Hypertension. Blood pressures are currently acceptable. 10. Psoriasis. Some flare-up lately. 11. UTI - not otherwise specified. PLAN 1. Colonoscopy this morning by Dr. Snider. Followup with the surgical team later. 2. Continue IV fluids in the meantime as well as IV Rocephin for the urinary tract infection. 3. Continue to hold Xarelto for now. MTDD
--- NOTE | 2016-10-07 14:59 | OPNOTEF ---
DATE OF PROCEDURE 10/08/2015 SURGEON Benigno Snider MD PREOPERATIVE DIAGNOSIS Personal history for rectal bleeding, history for epigastric abdominal pain. POSTOPERATIVE DIAGNOSIS Personal history for rectal bleeding, history for epigastric abdominal pain, irregular GE junction, gastric polyps, marked sigmoid diverticulosis, colonic polyps located within rectal vault, 20 cm from anal verge, and 60 cm from the anal verge. PROCEDURE Esophagogastroduodenoscopy with polypectomies, colonoscopy with polypectomies via snare polypectomy technique. ANESTHESIA TIVA BRIEF HISTORY/INDICATIONS Mrs. Rogers is a 71-year-old female who recently presented to our facility as a result of onset of rectal bleeding. The patient also has had a history for epigastric abdominal discomfort. As a result of the above indications, it was recommended to the patient she undergo bidirectional endoscopy. For completeness please refer to notes included in the patient's chart. 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 There was some progression of the columnar mucosa upon the squamous epithelium to a length of about a centimeter to a [id number]-qc-faw-a-half. Photos were obtained for documentation purposes. Biopsies were obtained from the distal esophagus. Furthermore, within the lumen of the stomach, the patient was found have a couple of benign-appearing polyps that were on the order of 5-6 mm in diameter. One was located within the antral portion of the stomach. The second was located within the mid corpus of the stomach. These polyps were removed via cold biopsy technique. Upon colonoscopy there was no evidence for angiodysplastic lesion or jemma malignancy. Bowel prep was not ideal although adequate visualization was able to be accomplished. The patient was found to have marked diverticulosis within the sigmoid colon. She was found to have polyps within the rectal vault, 20 cm from the anal verge, and at 60 cm from the anal verge. These polyps were all removed in their entirety endoscopically. DESCRIPTION OF PROCEDURE After informed consent was obtained, the patient was brought to the endoscopy suite and placed on the table in left lateral decubitus position. The patient subsequently underwent total intravenous anesthesia by the nurse circuit court judge per my request. The patient subsequently underwent MAC anesthesia by the nurse circuit court judge per my request. Formal time-out was then completed. An Olympus gastroscope was then inserted in the oral hypopharynx and subsequently the esophagus under direct visualization. Gastroscope was advanced through the esophagus, stomach, pylorus, duodenal bulb, into the second portion of duodenum. Scope was slowly withdrawn. First and second portions of duodenum were within normal limits. No evidence of duodenitis or ulcerations was noted. Scope was then continued to be withdrawn until it was brought forth back to the prepyloric region and antrum. Within the prepyloric region of the stomach, the patient was found have a polyp on the order about 6 mm in diameter. This polyp was grasped multiple times until it had been removed in its entirety endoscopically via cold biopsy technique. J-maneuver was then performed. Cardia and fundus were within normal limits. Scope was allowed to straighten and slowly withdrawn and the remaining corpus of the stomach was well visualized. An additional smaller polyp on the order of 4-5 mm in diameter was located within the midportion of the corpus of the stomach. This polyp was grasped and removed in its entirety additionally and placed within the same container. The scope was withdrawn back to the level of the diaphragm. Squamocolumnar junction was located just above the level of the diaphragm. There was a "tongue-like projection" of columnar mucosa upon the squamous epithelium that extended to a length of about a centimeter to a kbiqbdsbmw-ezl-u-half consistent with that of Machado's metaplasia. Multiple biopsies were obtained from the distal esophagus via cold biopsy technique. Mucosa of the distal esophagus was not significantly erythematous in nature, nor was there any evidence for ulcerations. Scope was slowly withdrawn and the remaining esophageal mucosa found within normal limits. Next, attention was directed towards performing a colonoscopy. First, a digital rectal examination was performed. Normal sphincter tone. No rectal mass was appreciated. An Olympus colonoscope was inserted in the anus and advanced with the lumen of the colon under direct visualization at all times till the cecum was ascertained. Triangulation of taenia coli, ileocecal valve and appendiceal lumen were all visualized. Scope was then slowly withdrawn, again maintaining visualization of the lumen at all times. At 60 cm from the anal verge the patient was found to have a polyp on the order of about 8 mm to a centimeter in dimension. This polyp was removed in its entirety via snare polypectomy technique and suctioned into a colonic trap. Scope was then continued to be withdrawn where a slightly larger polyp at 27 cm from the anal verge was identified. This polyp was on the order of about a azsvasarnw-rey-i-half in diameter. Polyp was removed in its entirety via snare polypectomy technique and suctioned against the colonoscope and removed out through the anal verge. Scope was then reinserted and advanced past the prior polypectomy site. The patient was found have numerous diverticula within the sigmoid colon region. There was no evidence for angiodysplastic lesions or jemma allergies. The scope was then continued to be withdrawn till it was brought forth back to rectal vault. The patient was found to have two smaller diminutive-appearing colonic polyps that were on the order of about 5 mm and 8 mm in diameter. These polyps were also removed via snare polypectomy technique. J-maneuver was then performed. No worrisome perianal pathology was noted. Scope was allowed to straighten and withdrawn through the anal verge. The patient tolerated the procedure without difficulty and was sent back to the preop area in stable condition. Will await the biopsy results from today's EGD and colonoscopy and proceed accordingly with further recommendations thereafter. [facility]
--- NOTE | 2016-10-07 15:22 | NUR ---
NORM CM VISITED WITH PT. PT STTED THAT DR MALAGON VISITED HE THIS AM AND THE SHE THINKS SHE THAT RETURN HOME TODAY. PT WOULD LIKE TO USE [facility] POST STAY AT [facility]. DR FABIAN HAS SIGNED THE HOME HEALTH ORDERS AND CM HAS SENT THEM TO [facility]. PT IS AWARE TO CONTACT CM IF NEEDS ARISE.
[2016-10-07] MEDS ORDERED: CEFTRIAXONE 1 G in NORMAL SALINE 100 ML IV SCH (18:00)
--- NOTE | 2016-10-07 18:41 | NUR ---
STATUS PT A/O X3. UP WITH ASSIST OF 1-2. CAN AMBULATE TO WALKER BUT USING BEDSIDE COMMODE AT TIMES DUE TO URGENCY. PT HAS NOT HAD ANY BLOODY STOOLS THIS SHIFT. TOLERATING CONS CARB DIET WELL. DENIES NAUSEA. PRN TRAMADOL AND DEMEROL GIVEN FOR PAIN DOCUMENTED. VISITING WITH FRIEND IN ROOM. PT RESTING IN BED WTIH ALRM, Addendum: 10/07/16 at 1848 by VALERIE PRUETT RN CALL LIGHT WITHIN REACH. WILL CONTINUE TO MONITOR.
--- NOTE | 2016-10-07 21:05 | NUR ---
DISMISSAL PATIENT PROVIDED WITH DISCHARGE INSTRUCTION AND CURRENT MEDICATION. IV WAS REMOVED CATHETER TIP INTACT. GAUZE AND COBAN APPLIED TO SITE. PATIENT WAS ASSISTED INTO OWN CLOTHES. AT 2126 PATIENT WAS ESCORTED TO ED DOORS VIA WHEEL CHAIR BY THIS RN. ALL BELONGINGS SENT WITH PATIENT.
--- OUTSIDE RECORDS SUMMARY | 2016-10-08 13:40 | XMS REPORT | Continuity of Care Document ---
Author Author [facility] Organization [facility] Address Unknown Phone Unavailable Allergies Medications Problems Date Dx Coded Attending Type Code Diagnosis Diagnosed By 05/14/2015 JAN MALAGON MD M15.0 Primary generalized (osteo)arthritis 05/14/2015 JAN MALAGON MD M62.81 Muscle weakness (generalized) Procedures Code [place] [address] PT EVALUATION JAN MALAGON MD 04/23/2015 Results Encounters ACCT No. Visit Date/Time Discharge Status Pt. Type Provider Facility Loc./Unit Complaint [id number] 05/15/2015 00:01:00 2014 23:59:00 DIS Outpatient JAN MALAGON MD [id number] 04/23/2015 15:31:00 2014 23:59:00 DIS Outpatient JAN MALAGON MD
--- NOTE | 2016-10-08 15:11 | NUR ---
CM CM LVM
--- NOTE | 2016-10-09 09:00 | DSF ---
FINAL DIAGNOSES 1. Acute lower GI bleed manifested as rectal bleeding. 2. Mild sigmoid diverticulosis. 3. Gastric polyps. 4. Irregular GE junction. 5. Colonic polyps in three locations, status post polypectomies as well as EGD with polypectomies. Surgical procedure done by Dr. Snider on 10/08/2015. 6. Hypogastric abdominal pain. 7. Hypernatremia. 8. Type 2 diabetes, needing insulin. 7. History of coronary artery disease. No evidence of acute coronary syndrome at this time. 8. Hypertension. 9. Fibromyalgia which is chronic and quiescent. 10. Hypothyroidism, chronic. 11. Urinary tract infection, not otherwise specified at the time of admission. CONSULTATION Dr. Snider was consulted for EGD and colonoscopy. REASON FOR ADMISSION The patient is a 71-year-old female who presented to [facility] on the day of admission with the chief complaint of 2-3 day of rectal bleeding with some occasional clots. She complained of lower abdominal pain. PHYSICAL EXAMINATION Vital signs fairly stable. The patient's O2 sat was 97% on 3 liters of oxygen by nasal cannula. Exam was unremarkable other than tenderness in the hypogastric region. LABORATORY Lab included a white blood count of 9,000 and hemoglobin 10.7 which was baseline. Sodium 147. Potassium 4.5. Glucose 157. Alkaline phosphatase 87. Lactate 1.2. UA did show evidence of urinary tract infection manifested with positive nitrite, 10-20 WBC, 3+ bacteria. Culture and sensitivities are pending. HOSPITAL COURSE The patient was admitted to surgical floor on outpatient basis. Dr. Snider was consulted. The patient was subsequently taken to surgery for EGD and colonoscopy with results as mentioned above under final diagnoses. Please refer to that. The patient's rectal bleeding actually stopped during the hospitalization. She was treated with IV Protonix. She was made n.p.o. initially and then her diet was advanced to solid food. She did well. She was medically stable to dismiss to home. She was also treated for urinary tract infection. The patient was medically stable enough to dismiss to home on 10/07/2016. DISMISSAL MEDICATIONS 1. Cephalexin 500 mg one tablet p.o. b.i.d. 2. Vitamin D3 3000 unit capsule at bedtime. 3. Benadryl 25 mg one tablet at bedtime. 4. Colace 100 mg one tablet p.o. q.h.s. 5. Gemfibrozil 600 mg one tablet p.o. q.h.s. 6. NovoLog 60 units subcu t.i.d. with meals. 7. Lantus 90 units at bedtime. 8. Levothyroxine 150 mcg one tablet daily. 9. Lisinopril/hydrochlorothiazide 10/12.5 mg one tablet daily. 10. Mag oxide 400 mg one tablet p.o. b.i.d. 11. Multivitamin one tablet daily. 12. Niacin one tablet 500 mg q.h.s. 13. Protonix 40 mg one tablet at bedtime. 14. Sotalol 40 mg one tablet p.o. b.i.d. 15. Sucralfate 1 g p.o. q.i.d. 16. Tizanidine 4 mg one tablet p.o. t.i.d. 17. Tramadol 50 mg one tablet p.o. t.i.d. p.r.n. pain. Medications discontinued while patient was at the hospital included prednisone and Xarelto. We will hold these medications until the patient comes to the office to see me for followup on hospitalization stay. JUDITH
== END 2016-10-07 21:30 | disposition home health service (06) ==
LOC: ED 20:22 → EDHOLD 23:39 → SRG 23:39 → EEVIPCON 23:39 → UNDOADMOB 23:39 → SCU 23:39 → SRG 10-05 01:07 → EDHOLD 10-05 01:07 → SCU 10-07 21:30 → UNDODISOB 10-07 21:30
PROVIDERS: ATTEND Family Medicine
DX: K62.5 Hemorrhage of anus and rectum (principal); K57.30 Diverticulosis of large intestine without perforation or abscess without bleeding; K31.7 Polyp of stomach and duodenum; K22.70 Barrett's esophagus without dysplasia; K21.0 Gastro-esophageal reflux disease with esophagitis; D12.6 Benign neoplasm of colon, unspecified; K62.1 Rectal polyp; E87.0 Hyperosmolality and hypernatremia; E11.65 Type 2 diabetes mellitus with hyperglycemia; Z79.4 Long term (current) use of insulin; I25.10 Atherosclerotic heart disease of native coronary artery without angina pectoris; I10 Essential (primary) hypertension; M79.7 Fibromyalgia; E03.9 Hypothyroidism, unspecified; N39.0 Urinary tract infection, site not specified; D64.89 Other specified anemias; Z87.442 Personal history of urinary calculi; E66.09 Other obesity due to excess calories; Z68.44 Body mass index [BMI] 60.0-69.9, adult; E78.5 Hyperlipidemia, unspecified; L40.9 Psoriasis, unspecified; G43.909 Migraine, unspecified, not intractable, without status migrainosus; M15.8 Other polyosteoarthritis; Z79.02 Long term (current) use of antithrombotics/antiplatelets; Z79.52 Long term (current) use of systemic steroids; Z79.899 Other long term (current) drug therapy
CPT/HCPCS: 36415; 43239; 45385; 51701; 80048; 80053; 81001; 82948; 83605; 83735; 85007; 85025; 85027; 87077; 87086; 87186; 96372; 96374; 96375; 96376; 99284; A9270; C9113; G0378; J0696; J2175; J2250; J2405; J3010; J7030; J7050; J7512; 36000; 88305; 88341; 88342; 99218

== ENCOUNTER 2016-11-08 11:27 | Emergency (ER) | payer MEDICARE, MEDICAID ==
[~2016-11-08] VITALS: Ht 149.9 cm; Wt 142.9 kg
[~2016-11-08 11:27] MED LIST changes: -HYDR-4078 PO; -OXYC1TAB8 PO; -PRED5TAB PO; -RIVA20TA PO
[2016-11-08 11:30] VITALS: Ht 149.9 cm; Wt 142.9 kg
--- OUTSIDE RECORDS SUMMARY | 2016-11-08 11:32 | XMS REPORT | Continuity of Care Document ---
Author Author [facility] Organization [facility] Address Unknown Phone Unavailable Allergies Medications Problems Date Dx Coded Attending Type Code Diagnosis Diagnosed By 05/14/2015 JAN MALAGON MD M15.0 Primary generalized (osteo)arthritis 05/14/2015 JAN MALAGON MD M62.81 Muscle weakness (generalized) Procedures Code Description [place] [address] PT EVALUATION JAN MALAGON MD 04/23/2015 Results Encounters ACCT No. Visit Date/Time Discharge Status Pt. Type Provider Facility Loc./Unit Complaint [id number] 05/15/2015 00:01:00 2014 23:59:00 DIS Outpatient JAN MALAGON MD [id number] 04/23/2015 15:31:00 2014 23:59:00 DIS Outpatient JAN MALAGON MD
[2016-11-08] MEDS: NORMAL SALINE 1,000 ML IV ONE (11:35)
[2016-11-08] MEDS ORDERED: RIVA20TA PO (11:51)
[2016-11-08] MEDS ORDERED: TIZA4TAB4 PO (11:51)
--- NOTE | 2016-11-08 11:52 | NUR ---
CT PT TO CT VIA RNEY.
[2016-11-08] MEDS ORDERED: PRED5TAB PO (11:54)
[2016-11-08] MEDS ORDERED: TRAM50TA4 PO (11:54)
--- NOTE | 2016-11-08 11:57 | NUR ---
CT PT RETURNED.
[2016-11-08] MEDS ORDERED: HYDR-3989 PO (12:04)
[2016-11-08] MEDS ORDERED: LORA10TA7 PO (12:05)
--- NOTE | 2016-11-08 12:08 | DI ---
Indication: ITS.REASON: right eye conjunctival bleed with severe headache PROCEDURE: CT HEAD W/O CONTRAST: Encounter: Initial Comparison: Head CT dated January 29, 2016 Technique: Axial CT images through the head were performed without contrast. Iterative Reconstruction dose reducing technique was utilized. FINDINGS: Significant attenuation artifact due to patient body habitus. This limits the quality of the exam. Very limited evaluation of the posterior fossa due to artifact. 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 The ventricles are of normal size, shape, and contour for the patient's age. There are scattered areas of low attenuation in the white matter which most likely represent changes from chronic microvascular ischemia. The brainstem, cerebellum, and cerebral hemispheres otherwise have a normal morphology and CT attenuation. There is no evidence of midline displacement. No hemorrhage, signs of acute territorial stroke, mass effect, mass lesions, or edema is evident. Globes are intact. No obvious intraocular or intraconal hemorrhage. The visualized portions of the skull base, midface, and calvarium demonstrate no abnormality. The paranasal sinuses are well aerated and free of significant disease. The tympanic and mastoid cavities appear normal. IMPRESSION: No acute intracranial abnormality or hemorrhage. .
[2016-11-08 12:18] LABS: BASOPHILS % (AUTO) 0.3 % (0-2); EOSINOPHILS # (AUTO) 0.2 T/MM3 (0-0.5); EOSINOPHILS % (AUTO) 2.9 % (0-4); HCT - HEMATOCRIT 35.9 % (36-46); HGB - HEMOGLOBIN 11.2 GM/DL (12-16); IMMATURE GRANULOCYTE # (AUTO) 0.02 T/MM3 (0.00-0.03); IMMATURE GRANULOCYTE % (AUTO) 0.3 % (0.0-0.5); LYMPHOCYTES # (AUTO) 1.7 T/MM3 (1-4.8); LYMPHOCYTES % (AUTO) 21.4 % (23-45); MEAN CORPUSCULAR HGB 26.9 UUG (26-34); MEAN CORPUSCULAR HGB CONC(MCHC 31.2 GM/DL (31-37); MEAN CORPUSCULAR VOLUME 86.1 UM3 (80-100); MEAN PLATELET VOLUME 10.5 UM3 (9.4-12.4); MONOCYTES # (AUTO) 0.5 T/MM3 (0-0.8); MONOCYTES % (AUTO) 6.6 % (0-9.0); NEUTROPHILS #(AUTO)-ABSOLUTE 5.5 T/MM3 (1.8-7.7); NEUTROPHILS % (AUTO) 68.5 % (33-66); RED BLOOD COUNT 4.17 M/MM3 (4.00-5.20)
--- OUTSIDE RECORDS SUMMARY | 2016-11-08 12:21 | XMS REPORT | Continuity of Care Document ---
Author Author [facility] Organization [facility] Address Unknown Phone Unavailable Allergies Medications Problems Date Dx Coded Attending Type Code Diagnosis Diagnosed By 05/14/2015 JAN MALAGON MD M15.0 Primary generalized (osteo)arthritis 05/14/2015 JAN MALAGON MD M62.81 Muscle weakness (generalized) Procedures Code Description [place] [address] PT EVALUATION JAN MALAGON MD 04/23/2015 Results Encounters ACCT No. Visit Date/Time Discharge Status Pt. Type Provider Facility Loc./Unit Complaint [id number] 05/15/2015 00:01:00 2014 23:59:00 DIS Outpatient JAN MALAGON MD [id number] 04/23/2015 15:31:00 2014 23:59:00 DIS Outpatient JAN MALAGON MD
[2016-11-08 12:29] LABS: ALBUMIN 4.2 G/DL (3.5-5.0); ALBUMIN/GLOBULIN RATIO 1.2 RATIO (1.1-2.2); ALKALINE PHOSPHATASE 87 U/L (38-126); ALT (SGPT) 35 U/L (9-52); ANION GAP 14 MEQ/L (5-15); AST (SGOT) 20 U/L (14-36); BUN/CREATININE RATIO 37 RATIO (6-26); C-REACTIVE PROTEIN 18.7 MG/L (0-9); CALCIUM 9.3 MG/DL (8.4-10.2); CHLORIDE 103 MEQ/L (98-107); CO2 - CARBON DIOXIDE 29 MEQ/L (22-30); CREATININE 0.7 MG/DL (0.7-1.2); GLOMERULAR FILTRATION RATE 82; GLUCOSE 143 MG/DL (65-110); POTASSIUM 4.3 MEQ/L (3.6-5); SODIUM 146 MEQ/L (134-144); TOTAL PROTEIN 7.8 G/DL (6.3-8.2)
--- NOTE | 2016-11-08 12:38 | NUR ---
STATUS PT REPORTS INCREASED PAIN "ALL AROUND THE EYE AND INTO THE ADVENTISM." PAIN "05/24." DR TEJADA AWARE. PT INFORMED REGARDING PENDING CT RESULTS AND PLAN OF CARE.
--- NOTE | 2016-11-08 12:44 | NUR ---
DR DR TEJADA AT BEDSIDE.
--- NOTE | 2016-11-08 13:00 | NUR ---
VOID PT UP TO BEDSIDE COMMODE, VOIDES APPROXIMATELY 300ML YELLOW URINE. ASSISTED PT WITH PERICARE AND RETURN TO BED.
--- NOTE | 2016-11-08 13:18 | ERPDOC ---
Departure Disposition Decision Date: November 08, 2016 Disposition Decision Time: 13:24 Disposition: 01 DISCHARGED HOME, SELF-CARE Impression Impression Impression: Primary Impression: Subconjunctival hemorrhage Additional Impressions: History of temporal arteritis Headache Severity: Moderate Condition: Improved Seen By: Physician only Referrals: JAN MALAGON MD (Family) Patient Instructions: Subconjunctival Hemorrhage (ED) Problems/Meds/Labs Reviewed?: Yes Medications reviewed and manag: Yes Additional Instructions: Prednisone 60 mg daily for at least 2 weeks, then taper as directed by your primary care provider. You needs to see your primary care provider this week. You will need to see ophthalmology this week as well. Follow up care ordered?: Yes Mental Status: Alert, Oriented Scripts Prednisone (Prednisone) 10 Mg Tablet 0 PO TAPERQD, #18 TAB 30 mg daily x3 days 20 mg daily x3 days 10 mg daily x2 days Prov: LACY TEJADA MD 11/08/16 HPI - EENT General General Chief Complaint: Eye Problems Stated Complaint: BLOOD IN R EYE X2-3DAYS Time Seen by Provider: 11:43 HPI - EENT General Initial Comments 71-year-old female with blood in right eye. She has had blood on the surface of the eye for about 2 days now. She feels like her vision is a little blurry in that eye. She's had no fever or chills, no recent infections. She does have a history of temporal arteritis and has a headache that is bad enough that EMS had to give her 25 mg of Phenergan and 100 g of fentanyl by IV during transport. Vision testing was done when patient arrived and was equal between the eyes. Patient has previously been treated with high-dose prednisone for temporal arteritis, states that it worked well. She is currently on a 5 mg daily prednisone dose. She has never had a biopsy for temporal arteritis. She denies any trauma to the head, has not had any experience like this with a blood in the eye previously Allergies: Coded Allergies: Iodinated Contrast Media - Oral and (Verified Allergy, Severe, HIVES, SOA , 10/04/16) Penicillins (Verified Allergy, Severe, SOA, RASH, 10/04/16) Salicylates (Verified Allergy, Severe, SOA, RASH, 10/04/16) Sulfa (Sulfonamide Antibiotics) (Verified Allergy, Severe, RASH, SOA, 10/04) aspirin (Verified Allergy, Severe, ANAPHYLACTIC SHOCK, 10/04/16) codeine (Verified Allergy, Severe, SOA, RASH, 10/04/16) latex (Verified Allergy, Severe, SOA,HIVES, 10/04/16) levofloxacin (Verified Allergy, Severe, RASH, 10/04/16) 'LIPS SWELL SHUT AND I CAN'T BREATHE' butorphanol tartrate (Verified Allergy, Intermediate, HALLUCINATIONS, 10/04) morphine (Verified Adverse Reaction, Unknown, vomiting, 10/04/16) Past History Patient Surgical History multiple lithotripsies cholecystectomy vaginal hysterectomy partial thyroidectomy Past Medical History Metabolic: diabetes, hypercholesterolemia, hypertension, hypothyroidism Cardiac: A-fib Respiratory: COPD GI: GERD Female: UTI, kidney stones Neurological: fibromyalgia, headaches Musculoskeletal: osteoarthritis Psychological: depression Surgical History General: gallbladder Reproductive/: hysterectomy Family History Family PMH: FOUND: [place], cancer, diabetes, hypertension Vaccines Hx Influenza Vaccination: Yes (AUGUST 2016) Hx Pneumococcal Vaccination: Yes (UNKNOWN) Social History Smoking Status: Never smoker Does patient use chewing tobac: No Second Hand Exposure: No Substance Use Type: does not use Alcohol Intake: none Record Review Pertinent history updated: Yes Review of Systems Cardiovascular Cardiac: see HPI Musculoskeletal General: see HPI Neurological General: see HPI All other Systems All Other Systems: Reviewed and Negative Physical Exam General General Nourishment: well nourished, well developed, appears stated age, adult , obese Distress Description Headache Vitals and Pain First Documented Vital Signs Date Time Temp Pulse Resp B/P Pulse Ox O2 Delivery O2 Flow Rate FiO2 11/08/16 11:30 98.3 81 20 177/81 93 Room Air Weight: Kilograms: 142.900 Height (feet): 4 Height (inches): 11.00 Triage Pain Scale: Normal Exams: Head: Normocephalic w/o trauma Chest/Resp: Clear all baig, with good airflow, and symmetry bilaterally CV: Regular rate and rhythm, without murmur or gallop, Pulses 2+ all extremities, capillary refill, <2 seconds all ext., no pedal edema noted Abdomen: Bowel sounds positive, soft, non-tender, non-distended, no hepatosplenomegaly, masses or bruits noted Neurologic: Patient is alert, and oriented, cranial nerves, motor/sensory/ cerebellar, exams w/o gross deficits, to observation Psychiatric: Patient exhibits, appropriate attention, emotion and affect Eyes (brief) Comments Subconjunctival bleed noted on right eye. Does not extend onto pupil. Differential Diagnoses Considering: Conjunctival Foreign Body, Corneal Foreign Body, Septum Hematoma, Intraocular Foreign Body, Pharyngitis, Ruptured Globe, Subconjuctival Hemorrhage , Vitreous Detachment Progress Results/Orders Orders Procedure Category Date Status Time Ct Head W/O Contrast CT 11/08/16 Resulted Cbc W/Auto LAB 11/08/16 Complete Diff-Reflex Manual Cmp - Comprehensive LAB 11/08/16 Complete Metabolic C-Reactive Protein - LAB 11/08/16 Complete CRP Esr - Sedimentation LAB 11/08/16 In Process Rate - Ams 11:43 Normal Saline (Normal PHA 11/08/16 In Process Saline Iv) 11:45 Lab Results Laboratory Tests Test 11/08/16 11:52 White Blood Count 8.0T/MM3 Red Blood Count 4.17M/MM3 Hemoglobin 11.2GM/DL Hematocrit 35.9% Mean Corpuscular Volume 86.1UM3 Mean Corpuscular Hemoglobin 26.9UUG Mean Corpuscular Hemoglobin Concent 31.2GM/DL RDW Standard Deviation 49.1FL Platelet Count 276T/MM3 Mean Platelet Volume 10.5UM3 Immature Granulocyte % (Auto) 0.3% Neutrophils (%) (Auto) 68.5% Lymphocytes (%) (Auto) 21.4% Monocytes (%) (Auto) 6.6% Eosinophils (%) (Auto) 2.9% Basophils (%) (Auto) 0.3% Absolute Immature Granulocyte (auto 0.02T/MM3 Absolute Neutrophils (auto) 5.5T/MM3 Absolute Lymphocytes (auto) 1.7T/MM3 Absolute Monocytes (auto) 0.5T/MM3 Absolute Eosinophils (auto) 0.2T/MM3 Absolute Basophils (auto) 0.0T/MM3 Erythrocyte Sedimentation Rate Pending Turbidity < 20 Sodium Level 146MEQ/L Potassium Level 4.3MEQ/L Chloride Level 103MEQ/L Carbon Dioxide Level 29MEQ/L Anion Gap 14MEQ/L Blood Urea Nitrogen 26.0MG/DL Creatinine 0.7MG/DL Glomerular Filtration Rate Calc 82 BUN/Creatinine Ratio 37RATIO Glucose Level 143MG/DL Calculated Osmolality 288MOSM/KG Calcium Level 9.3MG/DL Total Bilirubin 0.50MG/DL Icterus Index < 2 Aspartate Amino Transf (AST/SGOT) 20U/L Alanine Aminotransferase (ALT/SGPT) 35U/L Alkaline Phosphatase 87U/L C-Reactive Protein 18.7MG/L Total Protein 7.8G/DL Albumin 4.2G/DL Globulin 3.6G/DL Albumin/Globulin Ratio 1.2RATIO Chemistry Specimen Hemolysis < 15 Medications Current ED Medications Sodium Chloride (Normal Saline IV) 1,000 ml @ 250 mls/hr Q4H ONCE IV ; Start at 11:45; Stop 11/08/16 at 15:44 Progress Progress Based on history and exam, patient is certainly a candidate for temporal arteritis. She will see ophthalmology early this next week. Until then we'll start her on prednisone 60 mg oral daily. She went on this dose previously and her symptoms resolved. We discussed side effects of prednisone, she is willing to accept those. The subconjunctival bleed should resolve spontaneously. We'll have her watch that. Ophthalmology will check it as will her primary care provider. We'll give her Percocet for headache pain if needed. She did not require any more narcotic while in the ED. She was given normal saline 1 L IV. LACY TEJADA MD November 08, 2016 13:18
[2016-11-08] MEDS ORDERED: PRED10TA PO (13:23)
[2016-11-08 13:44] VITALS: BP 140/63; PULSE 79; RESP 20; TEMP 98.2; O2SAT 94
--- NOTE | 2016-11-08 13:44 | NUR ---
DISMISS PT GIVEN INSTRUCTIONS AND RX IN ROOM. PT ABLE TO ASK ADDITIONAL QUESTIONS OF DR TEJADA. UNDERSTANDING VERBALIZED. PT ELECTS TO REMAIN IN ROOM UNTIL RIDE COMES.
--- NOTE | 2016-11-08 13:57 | NUR ---
TO LOBBY PT REQUESTS TO SIT IN LOBBY AT WAIT FOR RIDE. PT ASSISTED TO WC AT THIS TIME AND WHEELED TO LOBBY BY THIS RN. PT RETAINS ALL PERSONAL BELONGINGS AND DISMISSAL DOCUMENTS.
== END 2016-11-08 13:44 | disposition home or self-care (01) ==
LOC: ED 11:27
DX: H11.31 Conjunctival hemorrhage, right eye (principal); R51 Headache; Z86.79 Personal history of other diseases of the circulatory system; I10 Essential (primary) hypertension; Z79.01 Long term (current) use of anticoagulants
CPT/HCPCS: 80053; 85025; 85652; 86140

== ENCOUNTER 2017-01-01 05:19 | Observation (INO) ==
[2017-01-01] MEDS ORDERED: NITROGLYCERIN 0.4 MG SUBLINGUAL TABLET SL PRN (05:34)
[2017-01-01] MEDS ORDERED: METOPROLOL 5mg/5ml INJECTION IVP ONE ×2 (05:34→06:21)
--- NOTE | 2017-01-01 05:39 | Emergency Department Report ---
Chest Pain HPI - General Chief Complaint: Chest Pain Stated Complaint: Chest tightness Time Seen by Provider: 01/01/17 05:27 Source: patient, EMS Mode of arrival: EMS Limitations: no limitations - History of Present Illness HPI narrative: 71yo woman presented to the ER with chest pressure. Pt had abrupt onset of chest pressure and palpitations at 0100 this AM. Pt tried to sleep through her symptoms, but finally discussed them with the nrsing staff and was sent to the ER for evaluation. Pt has a known h/o paroxysmal A-fib, usually controlled with sotalol; is taking xarelto for prophylaxis. Her temporal arteritis has flared recently, so pt is taking prednisone. And, her BG has been elevated, because she did not adhere to her diabetic diet yesterday. MD complaint: chest pain Occurred At: home Onset (ago): hour(s) (4.5) Duration: constant Onset: during rest Pain location: substernal Severity: moderate Severity scale (1-10): 5 Quality: heaviness Pain radiation: none Relieving factors: nothing Exacerbating factors: exertion, movement Context: recent illness, new medications Aspirin Today: contraindicated (Pt is allergic to ASA; on xarelto) Nitro Today: 0.4 mg x 1, provided by ED Treatments prior to arrival chest pain: oxygen (on 2L at home) - Related Data Home Medications Medication Instructions Recorded Confirmed Gemfibrozil 600 mg PO HS #0 01/25/16 01/01/17 Pantoprazole Sodium [Protonix] 40 mg PO ACB #0 01/25/16 01/01/17 Tizanidine HCl 4 mg PO HS #0 01/25/16 01/01/17 Tramadol HCl [Ultram] 50 mg PO HS #0 01/25/16 01/01/17 Sotalol HCl [Sotalol] 40 mg PO BID #0 03/26/16 01/01/17 Multivitamin [Multi-Day Vitamins] 1 tab PO DAILY #0 04/16/16 01/01/17 Sucralfate 1 gm PO QID #0 04/16/16 01/01/17 Niacinamide [Niacin] 1,500 mg PO HS #0 05/13/16 01/01/17 diphenhydrAMINE HCl [Benadryl 25 mg PO HS #0 05/13/16 01/01/17 Allergy] insulin aspart 100 unit/mL 60 unit SUB-Q TIDWM #0 11/11/16 01/01/17 subcutaneous solution insulin glargine 100 unit/mL 90 unit SUB-Q HS #0 11/11/16 01/01/17 subcutaneous solution lisinopril 10 1 tab PO DAILY tab 11/11/16 01/01/17 mg-hydrochlorothiazide 12.5 mg tablet rivaroxaban 20 mg tablet 20 mg PO DAILY tab 11/11/16 01/01/17 Cholecalciferol [Vitamin D-3] 3,000 unit PO HS 11/22/16 11/22/16 Hydrocodone/APAP 5/325 [[place] 1 - 2 tab PO Q4-6HR PRN 11/22/16 11/22/16 5/325] cephalexin 500 mg capsule 500 mg PO BID 12/01/16 01/01/17 docusate sodium 100 mg capsule 100 mg PO .QHS cap 12/01/16 01/01/17 tramadol 50 mg tablet 50 mg PO QHSPRN PRN tab 12/01/16 01/01/17 Tizanidine HCl 4 mg PO HS PRN MDD bid 01/01/17 01/01/17 Previous Rx's Medication Instructions Recorded magnesium oxide 400 mg capsule 400 mg PO BID #180 cap 11/22/16 prednisone 20 mg tablet 50 mg PO DAILY #75 tab 12/19/16 levothyroxine 150 mcg tablet 150 mcg PO ACB #90 tab 12/23/16 Allergies Allergy/AdvReac Type Severity Reaction Status Date / Time aspirin Allergy Verified 01/01/17 05:50 codeine Allergy Verified 01/01/17 05:50 Iodine and Iodide Containing Allergy Rash Verified 01/01/17 05:50 Produc levofloxacin [From Levaquin] Allergy Verified 01/01/17 05:50 Penicillins Allergy Verified 01/01/17 05:50 Sulfa (Sulfonamide Allergy Verified 01/01/17 05:50 Antibiotics) butorphanol [From Stadol] AdvReac Severe aggressive Verified 01/01/17 05:50 behavior statins Allergy Uncoded 01/01/17 05:50 Review of Systems All systems: reviewed and negative except as stated Eyes: Reports: as per HPI Cardiovascular: Reports: as per HPI, chest pain, palpitations Endocrine: Reports: as per HPI PFSH Patient Stated Medical History Cataracts Yes Macular Degeneration Yes Cardiac Arrhythmia Yes: a fib/flutter Hypertension Yes Diabetes Mellitus Type 2 Yes Other GI Yes: ibd Hx Urinary Tract Infection Yes Osteoarthritis Yes Other Musculoskeletal Yes: fibrymalgia Sepsis Yes Other Infectious Yes: [facility] Medical History (Last Updated 11/23/16 @ 00:18 by Jana Paris APRN) Cataracts, bilateral (Acute Medical) Diabetes 1.5, managed as type 2 (Acute Medical) Dyslipidemia (Acute Medical) Fibromyalgia (Acute Medical) Hypertension (Acute Medical) Hypothyroidism (Acute Medical) aquired Idiopathic pancreatitis (Acute Medical) Insomnia (Acute Medical) Osteoarthritis (Acute Medical) Psoriasis arthropathica (Acute Medical) Medical History Updates: A-fib. Temporal arteritis Surgical History: tubal ligation. hysterectomy. thyroidectomy Family History: Family History Father Blood clots in brain Unknown Hypertension Breast cancer Mother Breast cancer Diabetes Myocardial infarct Stroke - Social History Smoking status: Former smoker Physical Exam - Limitations Limitations: no limitations - General General appearance: alert, in no apparent distress, obese (Morbid) - Normal Exams: Head:: Normocephalic without trauma Eyes:: Pupils are PERRLA w/ EOMI, No scleral icterus, irritation, or foreign bodies noted ENMT:: No facial trauma, nasal exudates, pharyngeal erythema, or exudates are noted Neck:: Full range of motion, without adenopathy, JVD, bruits or thyromegaly Chest/Respirations:: Clear all baig, with good airflow, and symmetry bilaterally Abdomen:: Bowel sounds positive, soft, non-tender, non-distended, no hepatosplenomegaly, masses or bruits noted Lymphatic:: No lymphadenopathy Musculoskeletal:: No tenderness, or deformity noted, good range of motion, all extremities Integumentary:: No rashes, hives, or bruising noted, hair and nails, without abnormality Neurological:: Patient is alert, and oriented Psychiatric:: Patient exhibits, appropriate attention - Cardiovascular Cardiovascular exam: Present: tachycardia, irregular rhythm, normal heart sounds , +S1, +S2. Absent: regular rate, normal rhythm, systolic murmur, diastolic murmur, +S3, +S4 Course - Consultations Consultation #1: Dr. Chavez: Recommends admission for better evaluation; will admit to his own service. Time: 08:13 Vital Signs Temperature 99.1 F 07/20/17 05:20 Pulse Rate 101 H 01/01/17 05:20 Respiratory Rate 22 01/01/17 05:20 Blood Pressure 139/79 01/01/17 05:20 Pulse Oximetry 97 01/01/17 05:20 Temperature 99.1 F 01/01/17 05:20 Pulse Rate 80 01/01/17 07:33 Respiratory Rate 25 H 01/01/17 07:30 Blood Pressure 95/50 01/01/17 07:30 Pulse Oximetry 96 01/01/17 07:30 Chest Pain - Differential Diagnosis Likely: pneumothorax, stable angina, unstable angina pectoris, atypical chest pain, costochondritis, chest pain - Medical Records Data Attestation: I reviewed the patient's medical records. - Lab Data Attestation: I reviewed the patient's lab results. Result diagrams: 01/01/17 05:45 01/01/17 05:45 Lab Results 01/01/17 01/01/17 01/01/17 Range/Units 05:45 05:45 07:33 WBC 9.0 (4.5-11.0) T/MM3 RBC 4.35 (4.00-5.20) M/MM3 Hgb 11.9 L (12-16) GM/DL Hct 38.4 (36-46) % MCV 88.3 (80-100) UM3 MCH 27.4 (26-34) UUG MCHC 31.0 (31-37) GM/DL RDW Std Deviation 53.0 H (36.9-50.2) FL Plt Count 246 (130-400) T/MM3 MPV 10.1 (9.4-12.4) UM3 Immature Gran % (Auto) 0.2 (0.0-0.5) % Neut % (Auto) 82.9 H (33-66) % Lymph % (Auto) 11.8 L (23-45) % [place] % (Auto) 4.9 (0-9.0) % Eos % (Auto) 0.1 (0-4) % Baso % (Auto) 0.1 (0-2) % Neut # 7.4 (1.8-7.7) T/MM3 Lymph # 1.1 (1-4.8) T/MM3 [place] # 0.4 (0-0.8) T/MM3 Eos # 0.0 (0-0.5) T/MM3 Baso # 0.0 (0-0.2) T/MM3 Abs Immat Gran (auto) 0.02 (0.00-0.03) T/MM3 Turbidity < 20 (0-20) Sodium 143 (134-144) MEQ/L Potassium 3.9 (3.6-5) MEQ/L Chloride 105 (98-107) MEQ/L Carbon Dioxide 27 (22-30) MEQ/L Anion Gap 11 (5-15) MEQ/L BUN 32.0 H (7-17) MG/DL Creatinine 0.9 (0.7-1.2) MG/DL GFR Calculation 62 BUN/Creatinine Ratio 36 H (6-26) RATIO Glucose 249 H (65-110) MG/DL Calculated Osmolality 290 H (261-280) MOSM/KG Calcium 9.2 (8.4-10.2) MG/DL Icterus Index < 2 (0-7) Troponin I 0.038 0.041 (0-0.12) ng/ml Specimen Hemolysis < 15 < 15 (0-25) - Radiology Data Attestation: I reviewed the patient's radiology results. - EKG Data EKG #1 EKG attestation: Yes: I reviewed and interpreted this EKG. EKG shows normal: axis, QRS complexes Rate: tachycardia Rhythm: A. flutter [place]/QRS: normal Interpretation: nonspecific ST-T wave changes Disposition Clinical Impression: Atrial flutter Qualifiers: Atrial flutter type: typical Qualified Code(s): I48.3 - Typical atrial flutter Disposition: [facility] Print Language: Chinese Condition: Improved Prescriptions: No Action Gemfibrozil 600 mg PO HS #0 Pantoprazole Sodium [Protonix] 40 mg PO ACB #0 Tizanidine HCl 4 mg PO HS #0 Sucralfate 1 gm PO QID #0 Niacinamide [Niacin] 1,500 mg PO HS #0 diphenhydrAMINE HCl [Benadryl Allergy] 25 mg PO HS #0 Cholecalciferol [Vitamin D-3] 3,000 unit PO HS Hydrocodone/APAP 5/325 [[place] 5/325] 1 - 2 tab PO Q4-6HR PRN PRN Reason: Pain Tramadol HCl [Ultram] 50 mg PO HS #0 PRN Reason: PAIN Sotalol HCl [Sotalol] 40 mg PO BID #0 Multivitamin [Multi-Day Vitamins] 1 tab PO DAILY #0 Tizanidine HCl 4 mg PO HS PRN MDD bid PRN Reason: Muscle Spasm insulin aspart 100 unit/mL subcutaneous solution 60 unit SUB-Q TIDWM #0 insulin glargine 100 unit/mL subcutaneous solution 90 unit SUB-Q HS #0 lisinopril 10 mg-hydrochlorothiazide 12.5 mg tablet 1 tab PO DAILY tab rivaroxaban 20 mg tablet 20 mg PO DAILY tab magnesium oxide 400 mg capsule 400 mg PO BID #180 cap cephalexin 500 mg capsule 500 mg PO BID tramadol 50 mg tablet 50 mg PO QHSPRN PRN tab PRN Reason: Pain prednisone 20 mg tablet 50 mg PO DAILY #75 tab docusate sodium 100 mg capsule 100 mg PO .QHS cap levothyroxine 150 mcg tablet 150 mcg PO ACB #90 tab Referrals: Nikolas Gann MD [Family Provider] - Time of Disposition: 08:18 - Seen By: physician
[2017-01-01] MEDS ORDERED: DiltiaZEM 25 MG/5 ML INJECTION IVP ONE (07:03)
[2017-01-01] MEDS: SALINE FLUSH 10ml SYRINGE IVF PRN (07:22)
--- NOTE | 2017-01-01 07:51 | XRay Report ---
Indication: Chest pain and racing heart beat PROCEDURE: XR chest 1V: Encounter: Initial Comparison: May 13, 2016 Findings: The lungs are stable in appearance without new focal airspace consolidation. There is no pleural effusion or pneumothorax. The heart size, pulmonary vascularity and mediastinal contours are unchanged. IMPRESSION: Stable appearance of the chest without acute cardiopulmonary disease. .
[2017-01-01 10:02] VITALS: BMI 65.9
--- NOTE | 2017-01-01 11:15 | Cardiology History & Physical ---
History of Present Illness Chief complaint: Chest Pressure HPI: This is a 71-year-old female who presented to the ER early this AM with chest pressure. On assessment pt stated that around midnight she developed abrupt chest pressure and chest palpitations that she could feel and see. She states that at this time she als took her BP that was in the 180's systolic and her HR was in the 130's. She decided she would try and sleep and see if she improved. States around 0400 she had not improved and was also light-headed and diaphoretic and decided at this time to come into the ER. States that she did not notice any increased SOA that is not her norm as she is on chronic O2. Denies any CP, N/V, syncope. Pt states known hx of parozysmal AFIB that is usually controlled with sotalol; taking xarelto for prophylaxis. Also states hx of temporal arteritis that has recently flared for which she takes prednisone for. Pt is insulin dependent diabetic and states yesterday she had to increase her insulin d/t increased BG because she did not adhere to a proper diet. Pt states AFIB dx January of last year after hospitalization for sepsis at which time she was also sent home on O2 2/2 hypoxia. Review of Systems - Constitutional Constitutional: Absent: chills, fever(s), headache(s), weakness - EENMT Eyes: Absent: blurry vision - Cardiovascular Cardiovascular: Present: palpitations, edema. Absent: chest pain, syncope - Respiratory Respiratory: Present: cough, dyspnea on exertion. Absent: wheezing Respiratory Comments: Chronic O2 - Gastrointestinal Gastrointestinal: Absent: abdominal pain, constipation, diarrhea - Genitourinary Genitourinary: Absent: difficulty urinating, dysuria, hematuria - Musculoskeletal Musculoskeletal: Present: back pain. Absent: deformity, limited range of motion - Integumentary/Breasts Integumentary: Absent: rash, wounds - Neurological Neurological: Absent: abnormal speech, confusion, dizziness, frequent falls, headache(s), lack of coordination, loss of vision, vertigo Neurological Comments: Light-headed - Psychiatric Psychiatric: Absent: anxiety, depression PFSH Patient Stated Medical History Cataracts Yes Macular Degeneration Yes Cardiac Arrhythmia Yes: a fib/flutter Hypertension Yes Diabetes Mellitus Type 2 Yes Other GI Yes: ibd Hx Urinary Tract Infection Yes Osteoarthritis Yes Other Musculoskeletal Yes: fibrymalgia Sepsis Yes Other Infectious Yes: [facility] Medical History (Last Updated 01/01/17 @ 08:18 by Mihir Tenorio October, ) Cataracts, bilateral (Acute Medical) Diabetes 1.5, managed as type 2 (Acute Medical) Dyslipidemia (Acute Medical) Fibromyalgia (Acute Medical) Hypertension (Acute Medical) Hypothyroidism (Acute Medical) aquired Idiopathic pancreatitis (Acute Medical) Insomnia (Acute Medical) Osteoarthritis (Acute Medical) Psoriasis arthropathica (Acute Medical) Medical History Updates: A-fib. Temporal arteritis Surgical History: tubal ligation. hysterectomy. thyroidectomy. cholecystectomy Family History: Family History Father Blood clots in brain Unknown Hypertension Breast cancer Mother Breast cancer Diabetes Myocardial infarct Stroke - Social History Smoking status: Former smoker Medications Home Medications Medication Instructions Recorded Confirmed Type Gemfibrozil 600 mg PO HS #0 01/25/16 01/01/17 History Pantoprazole Sodium [Protonix] 40 mg PO ACB #0 01/25/16 01/01/17 History Tizanidine HCl 4 mg PO HS #0 01/25/16 01/01/17 History Tramadol HCl [Ultram] 50 mg PO HS #0 01/25/16 01/01/17 History Multivitamin [Multi-Day Vitamins] 1 tab PO DAILY #0 04/16/16 01/01/17 History Sucralfate 1 gm PO QID #0 04/16/16 01/01/17 History Niacinamide [Niacin] 1,500 mg PO HS #0 05/13/16 01/01/17 History diphenhydrAMINE HCl [Benadryl 25 mg PO HS #0 05/13/16 01/01/17 History Allergy] insulin aspart 100 unit/mL 60 unit SUB-Q TIDWM #0 11/11/16 01/01/17 History subcutaneous solution insulin glargine 100 unit/mL 90 unit SUB-Q HS #0 11/11/16 01/01/17 History subcutaneous solution lisinopril 10 1 tab PO DAILY tab 11/11/16 01/01/17 History mg-hydrochlorothiazide 12.5 mg tablet rivaroxaban 20 mg tablet 20 mg PO DAILY tab 11/11/16 01/01/17 History Cholecalciferol [Vit. D-3] 3,000 unit PO HS 11/22/16 11/22/16 History Hydrocodone/APAP 5/325 [[place] 1 - 2 tab PO Q4-6HR PRN 11/22/16 11/22/16 History 5/325] cephalexin 500 mg capsule 500 mg PO BID 12/01/16 01/01/17 History docusate sodium 100 mg capsule 100 mg PO .QHS cap 12/01/16 01/01/17 History tramadol 50 mg tablet 50 mg PO QHSPRN PRN tab 12/01/16 01/01/17 History Tizanidine HCl 4 mg PO HS PRN MDD bid 01/01/17 01/01/17 History Allergies Allergy/AdvReac Type Severity Reaction Status Date / Time aspirin Allergy Verified 01/01/17 05:50 codeine Allergy Verified 01/01/17 05:50 Iodine and Iodide Containing Allergy Rash Verified 01/01/17 05:50 Produc levofloxacin [From Levaquin] Allergy Verified 01/01/17 05:50 Penicillins Allergy Verified 01/01/17 05:50 Sulfa (Sulfonamide Allergy Verified 01/01/17 05:50 Antibiotics) butorphanol [From Stadol] AdvReac Severe aggressive Verified 01/01/17 05:50 behavior statins Allergy Uncoded 01/01/17 05:50 Exam Vital signs: Temperature 98.2 F 01/01/17 09:55 Pulse Rate 104 H 01/01/17 09:55 Respiratory Rate 28 H 01/01/17 09:55 Blood Pressure 136/63 01/01/17 09:55 Pulse Oximetry 94 01/01/17 09:55 Oxygen Delivery Method Nasal Cannula Oxygen Flow Rate 2 - Constitutional no acute distress, morbidly obese, diaphoretic - Routine HEENT Exam Head: Present: normocephalic Eye: Present: EOMI ENT: Present: mucous membranes moist - Routine Neck Exam Absent: JVD, carotid bruit, lymphadenopathy - Routine Respiratory Exam Present: decreased breath sounds. Absent: respiratory distress, wheezes - Routine Cardiovascular Exam Present: irregular rhythm. Absent: no murmur, JVD - Routine Abdominal Exam Present: soft, normoactive bowel sounds, non tender - Routine Extremities Exam Present: edema, non tender, pulses intact - Routine Skin Exam Present: intact, warm. Absent: wounds, rash - Routine Neurological Exam Present: alert, oriented X3 - Routine Psychiatric Exam Present: normal affect, normal thought process, cooperative Results 01/02/17 06:00 01/02/17 06:00 Intake and Output 12/31/16 01/01/17 01/01/17 22:59 06:59 14:59 Other: Weight 148.2 kg Patient Weight 01/02/17 06:59 Weight 148.2 kg - Imaging and Cardiology EKG results: image reviewed EKG interpretations - Dysrhythmias Supraventricular dysrhythmia: atrial flutter Hospital Course This is a general summary of the patient's hospital course. For more details refer to the complete medical record. Hospital course: 01/01/2017: Chest Pain Aflutter-h/o paroxymal AFIB hyperlipidemia Temporal arteritis Chronic respiratory failure HTN Hypothyroidism DM Osteoarthritis Serial troponins negative so far. Order CXR. EKG in ER AFlutter /Tachycardia w/RVR, HR 114 - QT/QtC 346/414. Recieved IVP cardizem and metoprolol in ER. Currently Alutter HR 100-130's. Start Cardizem gtt. Will admit pt as observation to CCU, NPO, for cardioversion later today.Will resume all home meds including xarelto & sotalol post cardioversion. Allergy to ASA & Statins. Cont home Niacin and gemfibrozfil post cardioversion.Lipid panel pending. Have pt take home dose of prednisone. Obtain a sed rate with lab. On chronic O2 since hospital admission for sepsis last year. Con't. Recieved IV metoprolol in ER. BP currently stable. Will resume home meds post procedure. Checking TSH. Will con't home dose of levothyroxine post cardoversion. Monitoring BG, most recent reading was 89- started D51/2 @ 75cc/hr - will d/c IVF post cardioversion and resume insulins. Will resume pain meds post cardioversion. Time spent with patient: greater than 35 minutes DVT Prophylaxis: Xarelto GI Prophylaxis: Protonix Assessment and Plan (1) Chest pain Status: Acute . (2) Atrial flutter Start date: 12/31/16 Status: Chronic (3) Temporal arteritis Status: Acute (4) Chronic respiratory failure Status: Acute (5) Hyperlipidemia Status: Chronic (6) HTN (hypertension) Status: Chronic (7) Hypothyroidism Status: Chronic (8) Diabetes Status: Chronic (9) Osteoarthritis Status: Chronic - Attestation Attestation Narrative: 01/06/17 09:25 Recommendation After examining the patient I agree with the above assessment. I am involved in the formulation of the patient's plan of care. Sepsis Assessment - Evaluation Sepsis screening result: No Definite Risk Confirmed Suspected Infection: No
[2017-01-01] MEDS ORDERED: FentaNYL 100 MCG/2 ML INJECTION IVP PRN (11:33)
[2017-01-01] MEDS ORDERED: MIDAZOLAM 5mg/5ml INJECTION IVP PRN (11:36)
[2017-01-01] MEDS ORDERED: DiltiaZEM Drip 125 MG in NS 100 ML IV SCH (11:55)
[2017-01-01] MEDS ORDERED: MORPHINE SULFATE 10 MG/ML VIAL IVP ONE (13:33)
--- NOTE | 2017-01-01 14:29 | XRay Report ---
Indication: Chest pain PROCEDURE: XR chest 1V: Encounter: Initial Comparison: January 01, 2017 at 0638 Findings: Lungs are grossly stable in appearance. No new infiltrate. No pleural effusion or pneumothorax. Heart size and mediastinal contours are within normal limits. Pulmonary vascularity appears normal. Impression: Stable appearance of the chest without acute cardiopulmonary disease. .
[2017-01-01] MEDS: PREDNISONE 20 MG PO SCH (15:12)
[2017-01-01] MEDS ORDERED: D5-1/2NS 1,000 ML IV SCH (15:45)
[2017-01-01] MEDS ORDERED: TRAMADOL 50 MG TABLET PO PRN (17:29)
[2017-01-01] MEDS ORDERED: LISINOPRIL 5 MG TABLET PO SCH (19:15)
[2017-01-01] MEDS: RIVAROXABAN 20 MG TABLET PO SCH (19:18)
[2017-01-01] MEDS: LISINOPRIL/HCTZ 10/12.5 MG TABLET PO SCH (19:19)
[2017-01-01] MEDS: SOTALOL 80 MG TABLET PO SCH (19:21)
[2017-01-01] MEDS: INSULIN ASPART 100unit/ml INJECTION SQ SCH (19:23)
[2017-01-01] MEDS ORDERED: SOTALOL 80 MG TABLET PO SCH (20:00)
[2017-01-01] MEDS: MAGNESIUM OXIDE 400 MG TABLET PO SCH (21:31)
[2017-01-01] MEDS: SUCRALFATE 1 GM TABLET PO SCH (21:32)
--- NOTE | 2017-01-01 21:40 | Echocardiogram ---
DATE OF PROCEDURE January 01, 2017. This is a two-dimensional echo with spectral Doppler, color-flow and M-mode. It was obtained in a patient with atrial flutter. Left atrial dimension is normal. Left ventricular end-diastolic dimension is normal. Left ventricular wall thickness is normal. LV systolic function is normal with ejection fraction of 57%. Right atrium is normal. Right ventricle is normal. Aortic root dimension is normal. Mitral valve is morphologically normal with trace of mitral regurgitation. Aortic valve was not visualized well. However, fibrocalcific changes are present with no evidence of stenosis or insufficiency by Doppler studies. Tricuspid valve shows trace of tricuspid regurgitation with normal estimated pulmonary artery systolic pressure of 21. Pulmonary valve shows no pulmonary insufficiency. There is no pericardial effusion. IMPRESSION 1. Technically difficult study. 2. Normal LV systolic function with ejection fraction of 57%. 3. Trace of mitral regurgitation. 4. Aortic sclerosis. 5. Trace of tricuspid regurgitation with normal estimated pulmonary artery systolic pressure of 21. MTDD
--- NOTE | 2017-01-01 21:54 | DC Cardioversion ---
DATE OF PROCEDURE January 01, 2017 The patient is a pleasant 71-year-old lady with history of atrial fibrillation/ flutter on chronic anticoagulation who was admitted with recurrence of atrial flutter with rapid ventricular rate and was referred for DC cardioversion. Informed consent was obtained after explaining the procedure and the potential risks to the patient who agreed to proceed with the procedure. PROCEDURE DC cardioversion. Conscious sedation was performed using Versed and fentanyl. Anterior-posterior Zoll pads were applied. 360 joules of energy were delivered in a synchronized manner and patient converted from atrial flutter into sinus rhythm. She tolerated the procedure well with no complications. IMPRESSION Successful DC cardioversion of atrial flutter into sinus rhythm. PLAN Will continue anticoagulation and increase antiarrhythmics to hopefully maintain sinus. JUDITH
[2017-01-01] MEDS ORDERED: GEMFIBROZIL 600 MG TABLET PO SCH (22:00)
[2017-01-01] MEDS ORDERED: DiphenhydrAMINE 25 MG CAPSULE PO SCH (22:00)
[2017-01-01] MEDS ORDERED: DOCUSATE SODIUM 100 MG CAPSULE PO SCH (22:00)
[2017-01-01] MEDS ORDERED: TRAMADOL 50 MG TABLET PO SCH (22:00)
[2017-01-01] MEDS ORDERED: INSULIN GLARGINE 100unit/ml INJECTION SQ SCH (22:00)
[2017-01-01] MEDS ORDERED: NIACINAMIDE 500 MG PO SCH (22:00)
[2017-01-01] MEDS ORDERED: ONDANSETRON 4 MG/2 ML INJECTION IVP PRN (22:45)
[2017-01-01] MEDS ORDERED: MORPHINE SULFATE 2 MG SYRINGE IVP PRN (22:45)
[2017-01-02] MEDS: SALINE FLUSH 10ml SYRINGE IVF PRN ×2 (04:52→08:30)
[2017-01-02] MEDS: SUCRALFATE 1 GM TABLET PO SCH ×3 (06:06→17:26)
[2017-01-02] MEDS: SOTALOL 80 MG TABLET PO SCH ×3 (06:06→17:26)
[2017-01-02] MEDS ORDERED: LEVOTHYROXINE 150 MCG TABLET PO SCH (06:30)
[2017-01-02] MEDS ORDERED: PANTOPRAZOLE 40 MG TABLET PO SCH (06:30)
[2017-01-02] MEDS: INSULIN ASPART 100unit/ml INJECTION SQ SCH ×3 (08:21→17:27)
[2017-01-02] MEDS: LISINOPRIL/HCTZ 10/12.5 MG TABLET PO SCH (08:24)
[2017-01-02] MEDS: MAGNESIUM OXIDE 400 MG TABLET PO SCH (08:25)
[2017-01-02] MEDS: PREDNISONE 20 MG PO SCH (08:48)
[2017-01-02] MEDS ORDERED: MULTI-VITAMIN PLAIN TABLET PO SCH (09:00)
--- NOTE | 2017-01-02 11:45 | Discharge Summary ---
<Preethi Loja R - Last Filed: 01/02/17 15:28> Discharge Information Date of admission: 01/01/17 09:02 Anticipated date of discharge: 01/02/17 Attending Physician: Siddharth Chavez MD Primary care physician: Nikolas Gann MD Consults: None - Discharge Diagnosis (1) Chest pain Status: Acute (2) Atrial flutter Qualifiers: Atrial flutter type: typical Qualified Code(s): I48.3 - Typical atrial flutter Status: Chronic (3) Hyperlipidemia Status: Chronic (4) Temporal arteritis Status: Acute (5) HTN (hypertension) Status: Chronic (6) Hypoxia Status: Acute (7) Hypothyroidism Status: Chronic (8) Diabetes Status: Chronic (9) Osteoarthritis Status: Chronic - Procedures Procedures: Patient: Juliann Rogers MR#: [id number] : 1945 Age/Sex: 71 / F ADM Date: 01/01/17 Loc: CCU 2-P DIS Date: = = = = = = = = = = = = = = = = = = = = = = = = = = = = = = = = = = = = = = = = = = = = = = = = = = = = = = = = = = = DATE OF PROCEDURE January 01, 2017 The patient is a pleasant 71-year-old lady with history of atrial fibrillation/ flutter on chronic anticoagulation who was admitted with recurrence of atrial flutter with rapid ventricular rate and was referred for DC cardioversion. Informed consent was obtained after explaining the procedure and the potential risks to the patient who agreed to proceed with the procedure. PROCEDURE DC cardioversion. Conscious sedation was performed using Versed and fentanyl. Anterior-posterior Zoll pads were applied. 360 joules of energy were delivered in a synchronized manner and patient converted from atrial flutter into sinus rhythm. She tolerated the procedure well with no complications. IMPRESSION Successful DC cardioversion of atrial flutter into sinus rhythm. PLAN Will continue anticoagulation and increase antiarrhythmics to hopefully maintain sinus. - Laboratory Labs: 01/02/17 06:00 01/02/17 06:00 Laboratory Results WBC 8.6 T/MM3 (4.5-11.0) 01/02/17 06:00 RBC 4.39 M/MM3 (4.00-5.20) 01/02/17 06:00 Hgb 12.1 GM/DL (12-16) 01/02/17 06:00 Hct 39.1 % (36-46) 01/02/17 06:00 MCV 89.1 UM3 (80-100) 01/02/17 06:00 MCH 27.6 UUG (26-34) 01/02/17 06:00 MCHC 30.9 GM/DL (31-37) L 01/02/17 06:00 RDW Std Deviation 54.1 FL (36.9-50.2) H 01/02/17 06:00 Plt Count 222 T/MM3 (130-400) 01/02/17 06:00 MPV 9.6 UM3 (9.4-12.4) 01/02/17 06:00 Immature Gran % (Auto) 0.2 % (0.0-0.5) 01/01/17 05:45 Neut % (Auto) 82.9 % (33-66) H 01/01/17 05:45 Lymph % (Auto) 11.8 % (23-45) L 01/01/17 05:45 [place] % (Auto) 4.9 % (0-9.0) 01/01/17 05:45 Eos % (Auto) 0.1 % (0-4) 01/01/17 05:45 Baso % (Auto) 0.1 % (0-2) 01/01/17 05:45 Neut # 7.4 T/MM3 (1.8-7.7) 01/01/17 05:45 Lymph # 1.1 T/MM3 (1-4.8) 01/01/17 05:45 [place] # 0.4 T/MM3 (0-0.8) 01/01/17 05:45 Eos # 0.0 T/MM3 (0-0.5) 01/01/17 05:45 Baso # 0.0 T/MM3 (0-0.2) 01/01/17 05:45 Abs Immat Gran (auto) 0.02 T/MM3 (0.00-0.03) 01/01/17 05:45 Neutrophils % (Manual) 73.0 % (33-66) H 01/02/17 06:00 Band Neutrophils % 1.0 % (0-6) 01/02/17 06:00 Lymphocytes % (Manual) 15.0 % (23-45) L 01/02/17 06:00 Monocytes % (Manual) 9.0 % (0-9.0) 01/02/17 06:00 Eosinophils % (Manual) 1.0 % (0-4) 01/02/17 06:00 Basophils % (Manual) 1.0 % (0-2) 01/02/17 06:00 Neutrophils # (Manual) 6.3 T/MM3 (1.8-7.7) 01/02/17 06:00 Band Neutrophils # 0.1 T/MM3 01/02/17 06:00 Lymphocytes # (Manual) 1.3 T/MM3 (1-4.8) 01/02/17 06:00 Monocytes # (Manual) 0.8 T/MM3 (0-0.8) 01/02/17 06:00 Eosinophils # (Manual) 0.1 T/MM3 (0-0.5) 01/02/17 06:00 Basophils # (Manual) 0.1 T/MM3 (0-0.2) 01/02/17 06:00 RBC Morph Comment Normal 01/02/17 06:00 ESR 56 mm/h (0-23) H 01/01/17 05:45 Turbidity < 20 (0-20) 01/02/17 06:00 Sodium 142 MEQ/L (134-144) 01/02/17 06:00 Potassium 4.2 MEQ/L (3.6-5) 01/02/17 06:00 Chloride 102 MEQ/L (98-107) 01/02/17 06:00 Carbon Dioxide 32 MEQ/L (22-30) H 01/02/17 06:00 Anion Gap 8 MEQ/L (5-15) 01/02/17 06:00 BUN 27.0 MG/DL (7-17) H 01/02/17 06:00 Creatinine 0.8 MG/DL (0.7-1.2) 01/02/17 06:00 GFR Calculation 71 01/02/17 06:00 BUN/Creatinine Ratio 34 RATIO (6-26) H 01/02/17 06:00 Glucose 73 MG/DL (65-110) 01/02/17 06:00 Glucometer 108 mg/dL (65-110) 01/02/17 11:50 Calculated Osmolality 277 MOSM/KG (261-280) 01/02/17 06:00 Calcium 9.0 MG/DL (8.4-10.2) 01/02/17 06:00 Magnesium 2.0 MG/DL (1.6-2.3) 01/01/17 07:33 Icterus Index < 2 (0-7) 01/02/17 06:00 Troponin I 0.036 ng/ml (0-0.12) 01/01/17 15:13 B-Natriuretic Peptide 1710 pg/mL (0-175) H 01/01/17 05:45 TSH 2.31 MIU/L (0.47-4.68) 01/01/17 07:33 Specimen Hemolysis < 15 (0-25) 01/02/17 06:00 - Radiology Radiology: Patient: Juliann Rogers MR#: [id number] : 1945 Age/Sex: 71 / F ADM Date: 01/01/17 Loc: ED DIS Date: = = = = = = = = = = = = = = = = = = = = = = = = = = = = = = = = = = = = = = = = = = = = = = = = = = = = = = = = = = = Date of Exam: 01/01/17 Ordering Provider: Mihir Reynolds DO Type of Exam(s): XR chest 1V Reason for Exam(s): CP Indication: Chest pain and racing heart beat PROCEDURE: XR chest 1V: Encounter: Initial Comparison: May 13, 2016 Findings: The lungs are stable in appearance without new focal airspace consolidation. There is no pleural effusion or pneumothorax. The heart size, pulmonary vascularity and mediastinal contours are unchanged. IMPRESSION: Stable appearance of the chest without acute cardiopulmonary disease. . = = = = = = = = = = = = = = = = = = = = = = = = = = = = = = = = = = = = = = = = = = = = = = = = = = = = = = = = = = = Date of Exam: 01/01/17 Type of Exam(s): US echo doppler complete DATE OF PROCEDURE January 01, 2017. This is a two-dimensional echo with spectral Doppler, color-flow and M-mode. It was obtained in a patient with atrial flutter. Left atrial dimension is normal. Left ventricular end-diastolic dimension is normal. Left ventricular wall thickness is normal. LV systolic function is normal with ejection fraction of 57%. Right atrium is normal. Right ventricle is normal. Aortic root dimension is normal. Mitral valve is morphologically normal with trace of mitral regurgitation. Aortic valve was not visualized well. However, fibrocalcific changes are present with no evidence of stenosis or insufficiency by Doppler studies. Tricuspid valve shows trace of tricuspid regurgitation with normal estimated pulmonary artery systolic pressure of 21. Pulmonary valve shows no pulmonary insufficiency. There is no pericardial effusion. IMPRESSION 1. Technically difficult study. 2. Normal LV systolic function with ejection fraction of 57%. 3. Trace of mitral regurgitation. 4. Aortic sclerosis. 5. Trace of tricuspid regurgitation with normal estimated pulmonary artery systolic pressure of 21. History of Present Illness HPI: This is a 71-year-old female who presented to the ER early this AM with chest pressure. On assessment pt stated that around midnight she developed abrupt chest pressure and chest palpitations that she could feel and see. She states that at this time she als took her BP that was in the 180's systolic and her HR was in the 130's. She decided she would try and sleep and see if she improved. States around 0400 she had not improved and was also light-headed and diaphoretic and decided at this time to come into the ER. States that she did not notice any increased SOA that is not her norm as she is on chronic O2. Denies any CP, N/V, syncope. Pt states known hx of parozysmal AFIB that is usually controlled with sotalol; taking xarelto for prophylaxis. Also states hx of temporal arteritis that has recently flared for which she takes prednisone for. Pt is insulin dependent diabetic and states yesterday she had to increase her insulin d/t increased BG because she did not adhere to a proper diet. Pt states AFIB dx January of last year after hospitalization for sepsis at which time she was also sent home on O2 2/2 hypoxia. Hospital Course This is a general summary of the patient's hospital course. For more details refer to the complete medical record. Hospital course: 01/01/2017: Chest Pain Aflutter-h/o paroxymal AFIB hyperlipidemia Temporal arteritis Chronic respiratory failure HTN Hypothyroidism DM Osteoarthritis Serial troponins negative so far. Order CXR. EKG in ER AFlutter /Tachycardia w/RVR, HR 114 - QT/QtC 346/414. Recieved IVP cardizem and metoprolol in ER. Currently Alutter HR 100-130's. Start Cardizem gtt. Will admit pt as observation to CCU, NPO, for cardioversion later today.Will resume all home meds including xarelto & sotalol post cardioversion. Allergy to ASA & Statins. Cont home Niacin and gemfibrozfil post cardioversion.Lipid panel pending. Have pt take home dose of prednisone. Obtain a sed rate with lab. On chronic O2 since hospital admission for sepsis last year. Con't. Recieved IV metoprolol in ER. BP currently stable. Will resume home meds post procedure. Checking TSH. Will con't home dose of levothyroxine post cardoversion. Monitoring BG, most recent reading was 89- started D51/2 @ 75cc/hr - will d/c IVF post cardioversion and resume insulins. Will resume pain meds post cardioversion. 01/02/2017: Chest Pain Aflutter-h/o paroxymal AFIB hyperlipidemia Temporal arteritis Chronic respiratory failure HTN Hypothyroidism DM Osteoarthritis Serial troponins negative. CXR unremarkable. EKG NSR. Denies CP today. Plan d/c to home today on xarelto and increased sotolol at 80mg PO BID. Repeat EKG in 1 week. F/u in 2 week. EKG today NSR QT/Fqh=145/427. Lipid panel pending. Cont current regimen. PCP managing. Sed rate 56 - notified. Pt to con't current prednisone. F/u with PCP. Resume home O2. BP stable. Keep BP diary and bring to f/u - discussed with pt. Resume same meds with increased sotalol. TSH WNL. Con't same resgimen. PCP manages. BS stable. Resume same regimen. PCP manages. Pain controlled. Resume current meds. PCP manages. Pt requesting HH - Case management set up per pt request. Time spent with patient: 25 - 35 minutes DVT Prophylaxis: Xarelto GI Prophylaxis: Protonix Exam Vital signs: Temperature 97.7 F 01/02/17 07:00 Pulse Rate 70 01/02/17 11:03 Respiratory Rate 20 01/02/17 11:03 Blood Pressure 146/74 H 01/02/17 11:03 Pulse Oximetry 96 01/02/17 11:03 Oxygen Delivery Method Nasal Cannula Oxygen Flow Rate 2 Narrative: Pt laying in bed this AM. States her night went well. Denies any CP, palpitations. SOA, diaphoresis, N/V. States that BP remained well controlled as well. Pt had had a couple that were elevated and states that thinks was d/t ill fitting cuff. States she is ready to go home today. States she monitors BP at home and discussed keeping a BP journal and taking with her to her f/u appointment which pt states she will. - Constitutional no acute distress, morbidly obese, cooperative - Routine HEENT Exam Head: Present: normocephalic Eye: Present: EOMI ENT: Present: mucous membranes moist - Routine Neck Exam Absent: JVD, carotid bruit, lymphadenopathy - Routine Respiratory Exam Present: CTA bilaterally. Absent: dyspnea, wheezes - Routine Cardiovascular Exam Present: RRR. Absent: no murmur, gallop, rubs, JVD - Routine Abdominal Exam Present: soft, normoactive bowel sounds - Routine Extremities Exam Present: edema, pulses intact - Routine Skin Exam Present: intact, dry, warm. Absent: wounds, rash - Routine Neurological Exam Present: alert, oriented X3 Results 01/02/17 06:00 01/02/17 06:00 Cardiac Enzymes 01/01/17 Range/Units 15:13 Troponin I 0.036 (0-0.12) ng/ml CBC 01/02/17 Range/Units 06:00 WBC 8.6 (4.5-11.0) T/MM3 RBC 4.39 (4.00-5.20) M/MM3 Hgb 12.1 (12-16) GM/DL Hct 39.1 (36-46) % Plt Count 222 (130-400) T/MM3 Comprehensive Metabolic Panel 01/02/17 Range/Units 06:00 Sodium 142 (134-144) MEQ/L Potassium 4.2 (3.6-5) MEQ/L Chloride 102 (98-107) MEQ/L Carbon Dioxide 32 H (22-30) MEQ/L BUN 27.0 H (7-17) MG/DL Creatinine 0.8 (0.7-1.2) MG/DL Glucose 73 (65-110) MG/DL Calcium 9.0 (8.4-10.2) MG/DL Intake and Output 01/01/17 01/02/17 01/02/17 22:59 06:59 14:59 Intake Total 288.75 / 288.75 360 / 360 Output Total 1200 / 1200 575 / 575 450 / 450 Balance -911.25 / -911.25 -575 / -575 -90 / -90 Intake: IV 288.75 / 288.75 D5-1/2Ns 1,000 ml @ 75 268.75 / 268.75 mls/hr IV .[id number] [facility] Rx #:[id number] Cardizem IV 125 mg In 20 / 20 Normal Saline 100 ml @ 5 MG/HR 5 mls/hr IV .Q24H [facility] Rx#:[id number] Oral 360 / 360 Output: Urine 1200 / 1200 575 / 575 450 / 450 Other: Weight 150.6 kg Patient Weight 01/03/17 06:59 Weight 150.6 kg - Imaging and Cardiology Echo: report reviewed EKG results: report reviewed - EKG Interpretation EKG: sinus rhythm EKG shows: sinus rhythm Discharge Plan - Med Rec/Dispo Referrals/Follow Up: Siddharth Chavez MD [Physician] - Additional Instructions: F/u in 1 week with EKG and in 2 week with appointment. Office will call with appointments. If they do not call today call office on Thursday to set up. Prescriptions: New Sotalol [Betapace] 80 mg PO ACBID #60 tablet Nitroglycerin [Nitrostat] 0.4 mg SL Q5MIN3 PRN #25 tablet PRN Reason: Chest Pain Continue Gemfibrozil 600 mg PO HS #0 Pantoprazole Sodium [Protonix] 40 mg PO ACB #0 Tizanidine HCl 4 mg PO HS #0 Sucralfate 1 gm PO QID #0 Niacinamide [Niacin] 1,500 mg PO HS #0 diphenhydrAMINE HCl [Benadryl Allergy] 25 mg PO HS #0 Cholecalciferol [Vit. D-3] 3,000 unit PO HS Hydrocodone/APAP 5/325 [[place] 5/325] 1 - 2 tab PO Q4-6HR PRN PRN Reason: Pain Tramadol HCl [Ultram] 50 mg PO HS #0 Multivitamin [Multi-Day Vitamins] 1 tab PO DAILY #0 Tizanidine HCl 4 mg PO HS PRN MDD bid PRN Reason: Muscle Spasm insulin aspart 100 unit/mL subcutaneous solution 60 unit SUB-Q TIDWM #0 insulin glargine 100 unit/mL subcutaneous solution 90 unit SUB-Q HS #0 lisinopril 10 mg-hydrochlorothiazide 12.5 mg tablet 1 tab PO DAILY tab rivaroxaban 20 mg tablet 20 mg PO DAILY tab magnesium oxide 400 mg capsule 400 mg PO BID #180 cap cephalexin 500 mg capsule 500 mg PO BID tramadol 50 mg tablet 50 mg PO QHSPRN PRN tab PRN Reason: Pain prednisone 20 mg tablet 50 mg PO DAILY #75 tab docusate sodium 100 mg capsule 100 mg PO .QHS cap levothyroxine 150 mcg tablet 150 mcg PO ACB #90 tab Discontinued Sotalol HCl [Sotalol] 40 mg PO BID #0 Discharge Instructions/Outpatient Orders: Final Provider Discharge Instructions Location: Determined By Patient - Disposition [address] [place] [address] <Siddharth Chavez - Last Filed: 01/06/17 09:38> Discharge Information Date of admission: 01/01/17 09:02 Attending Physician: Siddharth Chavez MD Primary care physician: Nikolas Gann MD - Discharge Diagnosis (1) Chest pain Status: Acute (2) Atrial flutter Qualifiers: Atrial flutter type: typical Qualified Code(s): I48.3 - Typical atrial flutter Status: Chronic (3) Temporal arteritis Status: Acute (4) Chronic respiratory failure Status: Acute (5) Hyperlipidemia Status: Chronic (6) HTN (hypertension) Status: Chronic (7) Hypothyroidism Status: Chronic (8) Diabetes Status: Chronic (9) Osteoarthritis Status: Chronic - Laboratory Labs: 01/02/17 06:00 01/02/17 06:00 Hospital Course This is a general summary of the patient's hospital course. For more details refer to the complete medical record. Exam Vital signs: Temperature 97.9 F 01/02/17 16:00 Pulse Rate 77 01/02/17 17:26 Respiratory Rate 15 01/02/17 16:00 Blood Pressure 169/76 H 01/02/17 16:00 Pulse Oximetry 94 01/02/17 16:00 Oxygen Delivery Method Nasal Cannula Oxygen Flow Rate 2 Results 01/02/17 06:00 01/02/17 06:00 Discharge Plan - Med Rec/Dispo - Attestation Attestation Narrative: 01/06/17 09:38 Recommendation After examining the patient I agree with the above assessment. I am involved in the formulation of the patient's plan of care.
[2017-01-02] MEDS ORDERED: ACETAMINOPHEN 325 MG TABLET PO ONE ×2 (11:47→11:48)
[2017-01-02 12:23] VITALS: O2SAT 94
[2017-01-02 16:10] VITALS: BP 169/76; RESP 15; TEMP 97.9
[2017-01-02 17:28] VITALS: PULSE 77
[2017-01-02] MEDS ORDERED: MAGNESIUM OXIDE 400 MG TABLET PO SCH (17:30)
[2017-01-02] MEDS: RIVAROXABAN 20 MG TABLET PO SCH (17:38)
== END 2017-01-02 18:00 | disposition home health service (06) ==
LOC: ED 05:19 → CCU 05:19
PROVIDERS: ADMIT Internal Medicine Cardiovascular Disease; ATTEND Internal Medicine Cardiovascular Disease

== ENCOUNTER 2017-02-13 13:40 | Inpatient (IN) ==
[2017-02-13] MEDS ORDERED: DiltiaZEM 25 MG/5 ML INJECTION IVP ONE (13:57)
[2017-02-13] MEDS ORDERED: GI COCKTAIL 30 ML PO ONE (13:58)
--- OUTSIDE RECORDS SUMMARY | 2017-02-13 14:00 | External Medical Summary | Summary of Care ---
:1945 Author Name Orestes Corado M.D. Address [address] [place] [address] Care Team Providers Name Role Phone Orestes Corado M.D. Unavailable Unavailable Nikolas Gann Unavailable Unavailable Unavailable Unavailable Unavailable Functional Status Functional Status Health Issues Name Dates Details Functional status health issues are not documented Status: Cognitive Status Health Issues Name Dates Details Cognitive status health issues are not documented Status: Problems Name Dates Details Morbid obesity (278.01, E66.01) Status: Active Type 2 diabetes mellitus (250.00, E11.9) Status: Active Retained ureteral stent (V43.89, Z96.0) Status: Active Kidney stone on left side (592.0, N20.0) Status: Active SIRS (systemic inflammatory response syndrome) (995.90, R65.10) Status: Active Urinary tract infection, site unspecified (599.0, N39.0) Status: Active Medications Name Dates Details Multivitamins Oral Capsule Refills: 0 Start -Jan-2016 Active Gemfibrozil 600 MG Oral Tablet Refills: 0 Start 12-Feb-2016 Active Keflex 500 MG Oral Capsule Refills: 0 Active Lantus 100 UNIT/ML Subcutaneous Solution Refills: 0 Active Levothyroxine Sodium 150 MCG Oral Tablet Refills: 0 Active Lisinopril-Hydrochlorothiazide 10-12.5 MG Oral Tablet Refills: 0 Active MetFORMIN HCl - 500 MG Oral Tablet Refills: 0 Active MiraLax Oral Packet Refills: 0 Active Niaspan 500 MG Oral Tablet Extended Release Refills: 0 Active NovoLOG PenFill 100 UNIT/ML SOLN Refills: 0 Active [place] 3 1000 MG Oral Capsule Refills: 0 Active PredniSONE 5 MG Oral Tablet Refills: 0 Active Protonix 40 MG Oral Tablet Delayed Release Refills: 0 Active TiZANidine HCl - 4 MG Oral Capsule Refills: 0 Active Ultram 50 MG Oral Tablet Refills: 0 Active Vitamin D3 2000 UNIT Oral Capsule Refills: 0 Active Allergies and Adverse Reactions Name Dates Details aspirin (Allergy) Status: Active butorphanol (Allergy) Status: Active Butorphanol Tartrate SOLN (Allergy) Status: Active codeine (Allergy) Status: Active Contrast Media Ready-Box MISC (Allergy) Status: Active Latex Exam Gloves MISC (Allergy) Status: Active levofloxacin (Allergy) Status: Active morphine (Allergy) Status: Active Penicillins (Allergy) Status: Active Salicylates (Allergy) Status: Active Sulfa Drugs (Allergy) Status: Active Past Medical History Name Dates Details History of Acute pyonephrosis (590.10, N13.6) Status: Resolved History of diabetes mellitus (V12.29, Z86.39) Status: Resolved History of hypercholesterolemia (V12.29, Z86.39) Status: Resolved History of hypothyroidism (V12.29, Z86.39) Status: Resolved History of Kidney stone on left side (592.0, N20.0) Status: Resolved History of Left ureteral calculus (592.1, N20.1) Status: Resolved History of osteoarthritis (V13.4, Z87.39) Status: Resolved Procedures Procedure Dates Details History of Cholecystectomy History of Hysterectomy History of Cystoscopy With Insertion Of Ureteral Stent History of Renal Lithotripsy Procedures not documented Immunization Name Dates Details Immunizations not documented Family History Unknown Family Member Name Dates Details Family history of malignant neoplasm (V16.9, Z80.9) Comments: Family History Status: Active Family history of diabetes mellitus (V18.0, Z83.3) Comments: Family History Status: Active Family history of hypertension (V17.49, Z82.49) Comments: Family History Status: Active Family history of myocardial infarction (V17.3, Z82.49) Comments: Family History Status: Active Social History Name Dates Details - Status: Smoking Status Name Dates Details Former smoker Vital Signs Date Test Result Details 30-Jan-2016 10:22 BP Systolic 121 mm[Hg] Status: Comments: Location: ; Position: BP Diastolic 66 mm[Hg] Status: Comments: Location: ; Position: Heart Rate 84 /min Status: Comments: Location: ; Height 59 in Status: Weight 310 lb Status: Body Mass Index Calculated 62.61 kg/m2 Status: Body Surface Area Calculated 2.22 m2 Status: Results Date Description Value Details Results not documented Plan of Care Name Dates Details Planned Observations Planned Goals not documented Planned Encounters Appointment; Provider: Orestes Corado M.D. On 20-Feb-2016 12:15 Instructions Name Dates Details Instructions not documented Encounters Appointment; Orestes Corado M.D. On 30-Jan-2016 Encounter Diagnosis: Problem not documented 10:15
--- OUTSIDE RECORDS SUMMARY | 2017-02-13 14:01 | External Medical Summary ---
:1945 Author Organization [facility]. Summary purpose CCDA Sent to [facility] Chief Complaint and Reason for Visit No authorized Reason for Visit (Admitting Diagnosis) is available for this visit. Problem list No authorized problems tracked for continuity of care are available for this visit. Encounters No authorized problems tracked for encounter diagnoses are available for this visit. Medications No home medications recorded for this patient visit Allergies, adverse reactions, alerts No allergy information is available for this patient. Immunizations No immunizations recorded for this patient visit Relevant diagnostic tests and/or laboratory data No authorized results are available for this patient visit History of procedures Procedure Code Code Type Description Date Performed Performing Physician [id number] CPT-4 PT EVALUATION 04-23-2015 JAN MALAGON Functional status No functional or cognitive status observations are available for this visit. Vital signs No authorized vital signs are available for this visit. Social history No Social History or smoking status observations were recorded for this visit. ( Unknown if ever smoked.) Treatment Plan No treatment plan text is available for this visit. Hospital discharge instructions No discharge instruction text is available for this visit.
--- OUTSIDE RECORDS SUMMARY | 2017-02-13 14:01 | External Medical Summary | Summary of Care ---
:1945 Author Name Orestes Corado M.D. Address [address] [place] [address] [place] [address] Care Team Providers Name Role Phone Orestes [...] 2 diabetes mellitus (250.00, E11.9) Status: Active Kidney stone on left side (592.0, N20.0) Status: Active Retained ureteral stent (V43.89, Z96.0) Status: Active Medications Name Dates Details Medication not documented Allergies and Adverse Reactions Name Dates Details [...] History of osteoarthritis (V13.4, Z87.39) Status: Resolved History of urinary tract infection (V13.02, Z87.440) Status: Resolved Procedures Procedure Dates Details History [...] Encounters Appointment; Provider: Orestes Corado M.D. On 13-Feb-2016 13:45 Appointment; Provider: Orestes Corado M.D. On 05-Feb-2016 07:00 Instructions Name Dates Details Instructions not documented Encounters Appointment; Orestes Corado M.D. On 30-Jan-2016 Encounter Diagnosis: Problem not documented 10:15
--- OUTSIDE RECORDS SUMMARY | 2017-02-13 14:01 | External Medical Summary ---
:1945 Author Organization [facility], [facility]. Summary purpose CCDA Sent to [facility] Chief Complaint and Reason for Visit No [...] for this patient visit History of procedures No procedures recorded for this patient visit. Functional status No functional or cognitive status [...]
--- OUTSIDE RECORDS SUMMARY | 2017-02-13 14:01 | External Medical Summary | Summary of Care ---
:1945 Author Name Orestes Corado M.D. Address [address] [place] [address] [place] [address] Care Team Providers Name Role Phone Orestes Corado M.D. Unavailable Unavailable Nikolas Gann Unavailable Unavailable Unavailable Unavailable Unavailable Functional Status Functional Status Health Issues Name Dates Details Functional status health issues are not documented Status: Cognitive Status Health Issues Name Dates Details Cognitive status health issues are not documented Status: Problems Name Dates Details Right kidney stone (592.0, N20.0) Status: Active Retained ureteral stent (V43.89, Z96.0) Status: Active Morbid obesity (278.01, E66.01) Status: Active Type 2 diabetes mellitus (250.00, E11.9) Status: Active Medications Name Dates Details Medication [...] Encounters Appointment; Provider: Orestes Corado M.D. On 05-Feb-2016 07:00 Instructions Name Dates Details Instructions not documented Encounters Appointment; Orestes Corado M.D. On 30-Jan-2016 Encounter Diagnosis: Problem not documented 10:15
--- NOTE | 2017-02-13 14:04 | Emergency Department Report ---
Chest Pain HPI - General Chief Complaint: Chest Pain Stated Complaint: Chest pain Time Seen by Provider: 02/13/17 13:43 Source: patient Mode of arrival: EMS Limitations: no limitations - History of Present Illness HPI narrative: Pt presents with a "burning" type substernal and epigastric chest pain. Pt was sleeping in her recliner when the pain woke her from sleep, she noticed a heavy fluttering in her chest and took her BP which showed a HR of 150. Pt states initial pain was at a 5. Pt received Fentanyl and NTG X2 per EMS and now rates pain at a 3. She states she was slightly nauseated at onset of pain but denies vomiting, SOA, radiation, or diaphoresis complaint: chest pain Occurred At: home Onset (ago): minute(s) Time: 1300 Duration: constant Onset: during rest Pain location: substernal, epigastric Severity scale (1-10): 3 Quality: other Pain radiation: none Relieving factors: nothing Exacerbating factors: nothing Associated symptoms: nausea Aspirin Today: contraindicated Nitro Today: 0.4 mg x 2 Treatments prior to arrival chest pain: other - Related Data Home Medications Medication Instructions Recorded Confirmed Pantoprazole Sodium [Protonix] 40 mg PO ACB #0 01/25/16 02/13/17 Niacinamide [Niacin] 1,500 mg PO HS #0 05/13/16 02/13/17 Tizanidine HCl 4 mg PO HS MDD bid 01/01/17 02/13/17 CephALEXin [Keflex] 500 mg PO BID 02/13/17 02/13/17 Cholecalciferol (Vitamin D3) 3,000 unit PO HS 02/13/17 02/13/17 [Vitamin D3] DiphenhydrAMINE [Benadryl] 25 mg PO HS 02/13/17 02/13/17 Docusate Sodium [Colace] 100 mg PO HS 02/13/17 02/13/17 Gemfibrozil [Lopid] 600 mg PO HS 02/13/17 02/13/17 Hydrocodone/APAP 5/325 [[place] 1 tab PO Q4-6HPRN PRN 02/13/17 02/13/17 5/325] Hydrocortisone 2.5% Cream 1 applic RECTALLY TID PRN 02/13/17 02/13/17 [Anusol-Hc 2.5% Cream] Insulin Aspart [NovoLOG] 58 - 60 unit SQ TIDWM 02/13/17 02/13/17 Insulin Glargine [Lantus] 90 unit SQ HS 02/13/17 02/13/17 Levothyroxine Sodium 150 mg PO ACB 02/13/17 02/13/17 Lisinopril/Hctz 10/12.5 [Prinzide 1 tab PO DAILY 02/13/17 02/13/17 10/12.5] Magnesium Oxide [Magnesium] 400 mg PO BID 02/13/17 02/13/17 Multivit,Calc,Mins/Iron/Folic 1 tab PO DAILY 02/13/17 02/13/17 [Women's Daily Caplet] PredniSONE [Deltasone] 40 mg PO WB 02/13/17 02/13/17 Rivaroxaban [Xarelto] 20 mg PO DAILY 02/13/17 02/13/17 Sucralfate [Carafate] 1 gm PO QID 02/13/17 02/13/17 Tizanidine HCl 4 mg PO BID PRN 02/13/17 02/13/17 Tramadol [Ultram] 50 mg PO BID PRN 02/13/17 02/13/17 Tramadol [Ultram] 50 mg PO HS 02/13/17 02/13/17 Vit C/E/Zn/Coppr/Lutein/Zeaxan 1 cap PO BID 02/13/17 02/13/17 [Preservision Areds 2 Softgel] Previous Rx's Medication Instructions Recorded Nitroglycerin [Nitrostat] 0.4 mg SL Q5MIN3 PRN #25 tablet 01/02/17 Sotalol [Betapace] 80 mg PO ACBID #60 tablet 01/02/17 Allergies Allergy/AdvReac Type Severity Reaction Status Date / Time aspirin Allergy Verified 02/13/17 14:25 codeine Allergy Verified 02/13/17 14:25 Iodine and Iodide Containing Allergy Rash Verified 02/13/17 14:25 Produc levofloxacin [From Levaquin] Allergy Verified 02/13/17 14:25 Penicillins Allergy Verified 02/13/17 14:25 Pposjgo-Uqg-Ywh Reductase Allergy Verified 02/13/17 14:25 Inhibitor Sulfa (Sulfonamide Allergy Verified 02/13/17 14:25 Antibiotics) butorphanol [From Stadol] AdvReac Severe aggressive Verified 02/13/17 14:25 behavior morphine AdvReac Nausea and Verified 02/13/17 14:25 Vomiting Review of Systems Constitutional: Denies: fever, chills Eyes: Denies: eye pain ENT: Denies: throat pain Cardiovascular: Reports: chest pain, palpitations Respiratory: Denies: cough, dyspnea Gastrointestinal: Reports: nausea. Denies: abdominal pain, vomiting Genitourinary: Denies: frequency Musculoskeletal: Denies: back pain Integumentary: Denies: lesions Neurological: Denies: headache, weakness Psychiatric: Denies: anxiety Endocrine: Denies: fatigue Hematological/Lymphatic: Denies: easy bleeding Allergic/Immunologic: Denies: facial swelling PFSH Patient Stated Medical History Cataracts Yes Macular Degeneration Yes Cardiac Arrhythmia Yes: a fib/flutter Hypertension Yes Sleep Apnea Yes Diabetes Mellitus Type 2 Yes Other GI Yes: ibd Hx Urinary Tract Infection Yes Osteoarthritis Yes Other Musculoskeletal Yes: fibrymalgia Sepsis Yes Other Infectious Yes: psorasis Post Menopausal Yes Clinic Medical History Cataracts, bilateral (Acute Medical) Diabetes 1.5, managed as type 2 (Acute Medical) Dyslipidemia (Acute Medical) Fibromyalgia (Acute Medical) Hypertension (Acute Medical) Hypothyroidism (Acute Medical) aquired Idiopathic pancreatitis (Acute Medical) Insomnia (Acute Medical) Osteoarthritis (Acute Medical) Psoriasis arthropathica (Acute Medical) Medical History Updates: A-fib. Temporal arteritis Surgical History: tubal ligation. hysterectomy. thyroidectomy. cholecystectomy Family History: Family History Father Blood clots in brain Unknown Hypertension Breast cancer Mother Breast cancer Diabetes Myocardial infarct Stroke - Social History Smoking status: Former smoker Physical Exam - Limitations Limitations: no limitations - General General appearance: alert - Normal Exams: Head:: Normocephalic without trauma Eyes:: Pupils are PERRLA w/ EOMI Neck:: Full range of motion Chest/Respirations:: Clear all baig Abdomen:: Bowel sounds positive, soft, non-tender, non-distended Musculoskeletal:: No tenderness, or deformity noted, good range of motion Integumentary:: No rashes Neurological:: Patient is alert, and oriented, cranial nerves - Cardiovascular Cardiovascular exam: Present: regular rate (tachycardic) Course - Consultations Consultation #1: Bryant. Discussed pt status, medical findings and need for admission. Bryant concrred and pt to be admitted either him or the hospitalist Time: 14:52 Consultation #2: Jacy with the hospitalist group states pt PCP prefers to admit his own Time: 15:00 Consultation #3: Edmund. please admit to hospitalist Time: 15:05 Additional Consultation(s): Detweiller will admit obs 1530 Vital Signs Temperature 98.3 F 02/13/17 13:48 Pulse Rate 104 H 02/13/17 13:48 Respiratory Rate 22 02/13/17 13:48 Blood Pressure 130/65 02/13/17 13:48 Pulse Oximetry 95 02/13/17 13:48 Temperature 98.3 F 02/13/17 13:48 Pulse Rate 91 02/13/17 14:30 Respiratory Rate 24 02/13/17 14:30 Blood Pressure 118/58 02/13/17 14:30 Pulse Oximetry 96 02/13/17 14:30 Chest Pain - MDM Narrative Medical decision making narrative: Pt presented with A flutter RVR and burning chest pain. NTG X2 and fentanyl per EMS without effect. After receiving Cardizem bolus pt HR slowed from 120 to mid 90s, "burning" chest pain relieved with Gi cocktail however pt still rates pain as a 3. WBC elevated CXR with no acute findings, UA pending. TropI neg, BNP slightly elevated. Discussed with both Dr Hurtado and Douglas Pt to be admitted ObS under hospitalist - Differential Diagnosis Likely: stable angina, unstable angina pectoris, atypical chest pain, st elevation myocardial infarction - Lab Data Result diagrams: 02/13/17 14:07 02/13/17 14:07 Lab Results 02/13/17 02/13/17 Range/Units 14:07 14:07 WBC 13.6 H (4.5-11.0) T/MM3 RBC 3.99 L (4.00-5.20) M/MM3 Hgb 11.4 L (12-16) GM/DL Hct 35.7 L (36-46) % MCV 89.5 (80-100) UM3 MCH 28.6 (26-34) UUG MCHC 31.9 (31-37) GM/DL RDW Std Deviation 52.0 H (36.9-50.2) FL Plt Count 294 (130-400) T/MM3 MPV 9.8 (9.4-12.4) UM3 Immature Gran % (Auto) 0.8 H (0.0-0.5) % Neut % (Auto) 82.7 H (33-66) % Lymph % (Auto) 9.4 L (23-45) % [place] % (Auto) 6.3 (0-9.0) % Eos % (Auto) 0.6 (0-4) % Baso % (Auto) 0.2 (0-2) % Neut # 11.2 H (1.8-7.7) T/MM3 Lymph # 1.3 (1-4.8) T/MM3 [place] # 0.9 H (0-0.8) T/MM3 Eos # 0.1 (0-0.5) T/MM3 Baso # 0.0 (0-0.2) T/MM3 Abs Immat Gran (auto) 0.11 H (0.00-0.03) T/MM3 Turbidity 36 H (0-20) Sodium 146 H (134-144) MEQ/L Potassium 3.9 (3.6-5) MEQ/L Chloride 105 (98-107) MEQ/L Carbon Dioxide 30 (22-30) MEQ/L Anion Gap 11 (5-15) MEQ/L BUN 30.0 H (7-17) MG/DL Creatinine 0.9 (0.7-1.2) MG/DL GFR Calculation 62 BUN/Creatinine Ratio 33 H (6-26) RATIO Glucose 106 (65-110) MG/DL Calculated Osmolality 287 H (261-280) MOSM/KG Calcium 9.3 (8.4-10.2) MG/DL Icterus Index < 2 (0-7) Troponin I 0.013 (0-0.12) ng/ml B-Natriuretic Peptide 203 H (0-175) pg/mL Specimen Hemolysis < 15 (0-25) - EKG Data EKG #1 Rhythm: A. flutter - Core Measures AMI core measures followed: Yes Disposition Prescriptions: No Action Pantoprazole Sodium [Protonix] 40 mg PO ACB #0 Niacinamide [Niacin] 1,500 mg PO HS #0 Sotalol [Betapace] 80 mg PO ACBID #60 tablet Vit C/E/Zn/Coppr/Lutein/Zeaxan [Preservision Areds 2 Softgel] 1 cap PO BID Tramadol [Ultram] 50 mg PO BID PRN PRN Reason: Pain Tramadol [Ultram] 50 mg PO HS Magnesium Oxide [Magnesium] 400 mg PO BID Hydrocortisone 2.5% Cream [Anusol-Hc 2.5% Cream] 1 applic RECTALLY TID PRN PRN Reason: Prn Orders Insulin Glargine [Lantus] 90 unit SQ HS PredniSONE [Deltasone] 40 mg PO WB Hydrocodone/APAP 5/325 [Veteran 5/325] 1 tab PO Q4-6HPRN PRN PRN Reason: Pain Cholecalciferol (Vitamin D3) [Vitamin D3] 3,000 unit PO HS Docusate Sodium [Colace] 100 mg PO HS CephALEXin [Keflex] 500 mg PO BID Sucralfate [Carafate] 1 gm PO QID Levothyroxine Sodium 150 mg PO ACB Tizanidine HCl 4 mg PO BID PRN PRN Reason: Prn Orders DiphenhydrAMINE [Benadryl] 25 mg PO HS Tizanidine HCl 4 mg PO HS MDD bid Nitroglycerin [Nitrostat] 0.4 mg SL Q5MIN3 PRN #25 tablet PRN Reason: Chest Pain Rivaroxaban [Xarelto] 20 mg PO DAILY Insulin Aspart [NovoLOG] 58 - 60 unit SQ TIDWM Multivit,Calc,Mins/Iron/Folic [Women's Daily Caplet] 1 tab PO DAILY Gemfibrozil [Lopid] 600 mg PO HS Lisinopril/Hctz 12.5 [Prinzide 12.5] 1 tab PO DAILY Referrals: Nikolas Gann MD [Family Provider] - - Seen By: midlevel Addendum entered and electronically signed by Julia Granados APRN 16:12: Diagnosis, Chest pain, A fib, GERD Disposition [facility] [facility]
[2017-02-13] MEDS: NITROGLYCERIN 0.4 MG SUBLINGUAL TABLET SL PRN ×2 (14:09→15:57)
[2017-02-13] MEDS: SALINE FLUSH 10ml SYRINGE IVF PRN (14:14)
[2017-02-13] MEDS: NS 1,000 ML IV SCH (14:30)
--- NOTE | 2017-02-13 14:45 | XRay Report ---
Indication: chest pain PROCEDURE: XR chest 1V: Encounter: Initial Comparison: January 01, 2017 Findings: The lungs are stable in appearance without new focal airspace consolidation. There is no pleural effusion or pneumothorax. The heart size, pulmonary vascularity and mediastinal contours are unchanged. IMPRESSION: Stable appearance of the chest without acute cardiopulmonary disease. .
--- NOTE | 2017-02-13 16:10 | History & Physical Report ---
<Jacy Gonzales V - Last Filed: 02/13/17 17:08> History of Present Illness Date: 02/13/17 Chief complaint: Chest pain HPI: Juliann is 71 year female who is under the time the primary care of Dr. Gann who is checked out to the hospitalist services for the weekend. Patient also is under the cardiology care of Dr. Chavez. Is a known history of atrial fibrillation, RVR and had underwent a cardioversion in December 2016. She feels that since that time she has been in sinus rhythm. Today at 1300 she started having an onset of substernal chest pain that was somewhat burning in nature. She states that she dozed off for a nap and when upon awaking noticed a TV remote sitting on her chest "fluttering" and she knew that she was in atrial fibrillation. She states that she has been under a lot of increased stress recently. Upon furhter evaluation in the Emergency room labs, EKG and chest xray were obtained. WBC count was found to be slightly elevated at 10.6, however , this could be elevated secondary to chronic prednisone use. Hemoglobin was stable at 11.4, hematocrit 35.7, platelet count 294. Sodium 146, potassium 3.6, BUN 30, creatinine 0.9. Initial troponin 0.013. On arrival, patient was found to be in atrial fibrillation with RVR 115-120. She was given Cardizem 20 milligrams IV, Zofran, morphine and a GI cocktail. Nitroglycerin 3 was also given. She remains in atrial fibrillation, however, rate has been better controlled. Will services were contacted and accepted patient for outpatient admission for further evaluation and treatment and consultation with Dr. Chavez She does request to be a full code Review of Systems Comprehensive ROS: completed and no additional positive findings except those as stated - Constitutional Constitutional: Present: fatigue - Cardiovascular Cardiovascular: Present: chest pain, palpitations - Gastrointestinal Gastrointestinal: Present: other (hemorrhoids) [facility] Medical History Atrial fibrillation Diabetes Dyslipidemia Hypertension Hypothyroidism Insomnia Osteoarthritis Fibromyalgia Idiopathic pancreatitis Psoriasis arthropathica Successful cardioversion-01/01/17 Dr. Chavez Echocardiogram-01/01/17 IMPRESSION 1. Technically difficult study. 2. Normal LV systolic function with ejection fraction of 57%. 3. Trace of mitral regurgitation. 4. Aortic sclerosis. 5. Trace of tricuspid regurgitation with normal estimated pulmonary artery systolic pressure of 21. Surgical History: Tubal ligation. Hysterectomy. Thyroidectomy. Cholecystectomy Family History: Family History Father Blood clots in brain Unknown Hypertension Breast cancer Mother Breast cancer Diabetes Myocardial infarct Stroke - Social History Smoking status: Former smoker Substance use type: does not use Alcohol intake frequency: does not drink Social history: Primary care provider, Dr. Gann Limnologist Dr. Chavez Medications Home Medications Medication Instructions Recorded Confirmed Type Pantoprazole Sodium [Protonix] 40 mg PO ACB #0 01/25/16 02/13/17 History Niacinamide [Niacin] 1,500 mg PO HS #0 05/13/16 02/13/17 History Tizanidine HCl 4 mg PO HS MDD bid 01/01/17 02/13/17 History CephALEXin [Keflex] 500 mg PO BID 02/13/17 02/13/17 History Cholecalciferol (Vitamin D3) 3,000 unit PO HS 02/13/17 02/13/17 History [Vitamin D3] DiphenhydrAMINE [Benadryl] 25 mg PO HS 02/13/17 02/13/17 History Docusate Sodium [Colace] 100 mg PO HS 02/13/17 02/13/17 History Gemfibrozil [Lopid] 600 mg PO HS 02/13/17 02/13/17 History Hydrocodone/APAP 5/325 [[place] 1 tab PO Q4-6HPRN PRN 02/13/17 02/13/17 History 5/325] Hydrocortisone 2.5% Cream 1 applic RECTALLY TID PRN 02/13/17 02/13/17 History [Anusol-Hc 2.5% Cream] Insulin Aspart [NovoLOG] 58 - 60 unit SQ TIDWM 02/13/17 02/13/17 History Insulin Glargine [Lantus] 90 unit SQ HS 02/13/17 02/13/17 History Levothyroxine Sodium 150 mg PO ACB 02/13/17 02/13/17 History Lisinopril/Hctz 1012.5 [Prinzide 1 tab PO DAILY 02/13/17 02/13/17 History 1012.5] Magnesium Oxide [Magnesium] 400 mg PO BID 02/13/17 02/13/17 History Multivit,Calc,Mins/Iron/Folic 1 tab PO DAILY 02/13/17 02/13/17 History [Women's Daily Caplet] PredniSONE [Deltasone] 40 mg PO WB 02/13/17 02/13/17 History Rivaroxaban [Xarelto] 20 mg PO DAILY 02/13/17 02/13/17 History Sucralfate [Carafate] 1 gm PO QID 02/13/17 02/13/17 History Tizanidine HCl 4 mg PO BID PRN 02/13/17 02/13/17 History Tramadol [Ultram] 50 mg PO BID PRN 02/13/17 02/13/17 History Tramadol [Ultram] 50 mg PO HS 02/13/17 02/13/17 History Vit C/E/Zn/Coppr/Lutein/Zeaxan 1 cap PO BID 02/13/17 02/13/17 History [Preservision Areds 2 Softgel] Allergies Allergy/AdvReac Type Severity Reaction Status Date / Time aspirin Allergy Verified 02/13/17 14:25 codeine Allergy Verified 02/13/17 14:25 Iodine and Iodide Containing Allergy Rash Verified 02/13/17 14:25 Produc levofloxacin [From Levaquin] Allergy Verified 02/13/17 14:25 Penicillins Allergy Verified 02/13/17 14:25 Oerzehf-Yjx-Zpm Reductase Allergy Verified 02/13/17 14:25 Inhibitor Sulfa (Sulfonamide Allergy Verified 02/13/17 14:25 Antibiotics) butorphanol [From Stadol] AdvReac Severe aggressive Verified 02/13/17 14:25 behavior morphine AdvReac Nausea and Verified 02/13/17 14:25 Vomiting Exam Vital Signs: Temperature 98.3 F 02/13/17 13:48 Pulse Rate 112 H 02/13/17 15:45 Respiratory Rate 25 H 02/13/17 15:45 Blood Pressure 144/70 H 02/13/17 15:45 Pulse Oximetry 94 02/13/17 15:45 Telemetry Rhythm: A-fib with RVR - Constitutional Present: no acute distress, well nourished, well developed - Routine HEENT Exam Head: Present: normocephalic, atraumatic Eye: Present: EOMI ENT: Present: mucous membranes moist, dentition normal - Routine Respiratory Exam Present: CTA bilaterally. Absent: wheezes - Routine Cardiovascular Exam Present: S1, S2, irregular rhythm (atrial fibrillation, RVR). Absent: murmur - Routine Abdominal Exam Present: soft, normoactive bowel sounds, non distended. Absent: tenderness - Routine Extremities Exam Present: edema, full ROM, normal capillary refill - Routine Skin Exam Present: intact, dry, warm - Routine Neurological Exam Present: alert, oriented X3, CN II-XII intact - Routine Psychiatric Exam Present: normal affect, normal thought process Results - Labs CBC & Chem 7: 02/13/17 14:07 02/13/17 14:07 Assessment and Plan (1) Atrial fibrillation with RVR Current visit: Yes Status: Acute (2) Chest pain Current visit: Yes Status: Acute (3) Chronic respiratory failure Current visit: No Status: Chronic Chronically on 2 liters of oxygen by nasal cannula (4) Temporal arteritis Current visit: No Status: Chronic (5) Diabetes Current visit: No Status: Chronic (6) HTN (hypertension) Current visit: No Status: Chronic (7) Hyperlipidemia Current visit: No Status: Chronic (8) Hypothyroidism Current visit: No Status: Chronic (9) Osteoarthritis Current visit: No Status: Chronic (10) Oxygen dependent Current visit: Yes Status: Chronic (11) Fibromyalgia Current visit: Yes Status: Chronic (12) Chronic steroid use Current visit: Yes Status: Chronic DVT Prophylaxis: Xarelto Resuscitation Status: Full Code Assessment and Plan: Patient outpatient observation under care of Dr. Cummings, covering for Dr. Azeem Gooden placed to Dr. Chavez for his cardiac recommendations and treatment. Will monitor patient on Cardiac telemetry and obtain serial troponins 3. Continue with chronic oxygen, baseline 2 liters at home. Patient is chronically on Xarelto 20 milligrams daily for chronic anticoagulation and this will be continued. Monitor Accu-Cheks and continue with NovoLog insulin 58-60 units 3 times a day with meals, and Lantus 90 units at at bedtime She may have Ultram as needed for pain control. She would like to avoid use of hydrocodone as it has caused significant constipation and hemorrhoids. Recommend continuing with bowel motivation, Colace. Will also add MiraLAX Medication reconciliation does reveal the patient has been chronically on Keflex for unknown reason. Again, patient does request to be a full code and this orders written At time of discharge medical care will return to primary care provider, Dr. Gann Sepsis Assessment - Evaluation Sepsis screening result: No Definite Risk Hospital Course Summary Disclaimer: The visit summary below is not to be considered part of the above Progress Note. Hospital Course: 02/13/17- admit Patient outpatient observation under care of Dr. Cummings, covering for Dr. Gann Social placed to Dr. Chavez for his cardiac recommendations and treatment. Will monitor patient on Cardiac telemetry and obtain serial troponins 3. Continue with chronic oxygen, baseline 2 liters at home. Patient is chronically on Xarelto 20 milligrams daily for chronic anticoagulation and this will be continued. Monitor Accu-Cheks and continue with NovoLog insulin 58-60 units 3 times a day with meals, and Lantus 90 units at at bedtime She may have Ultram as needed for pain control. She would like to avoid use of hydrocodone as it has caused significant constipation and hemorrhoids. Recommend continuing with bowel motivation, Colace. Will also add MiraLAX Medication reconciliation does reveal the patient has been chronically on Keflex for unknown reason. Again, patient does request to be a full code and this orders written At time of discharge medical care will return to primary care provider, Dr. Gann <Quintin Cummings D - Last Filed: 02/13/17 18:35> History of Present Illness Date: 02/13/17 [facility] Patient Stated Medical History Cataracts Yes Macular Degeneration Yes Angina Yes Cardiac Arrhythmia Yes: a fib/flutter Hypertension Yes Bronchitis Yes Sleep Apnea Yes Diabetes Mellitus Type 2 Yes Other GI Yes: ibd Hx Urinary Tract Infection Yes Other Yes: stents after kidney stone removal ,removed Osteoarthritis Yes Other Musculoskeletal Yes: fibrymalgia Sepsis Yes Other Infectious Yes: psorasis Depression Yes Post Menopausal Yes Clinic Medical History Cataracts, bilateral (Acute Medical) Diabetes 1.5, managed as type 2 (Acute Medical) Dyslipidemia (Acute Medical) Fibromyalgia (Acute Medical) Hypertension (Acute Medical) Hypothyroidism (Acute Medical) aquired Idiopathic pancreatitis (Acute Medical) Insomnia (Acute Medical) Osteoarthritis (Acute Medical) Psoriasis arthropathica (Acute Medical) Family History: Family History Father Blood clots in brain Unknown Hypertension Breast cancer Mother Breast cancer Diabetes Myocardial infarct Stroke Exam Vital Signs: Temperature 98.3 F 02/13/17 17:20 Pulse Rate 122 H 02/13/17 17:20 Respiratory Rate 22 02/13/17 17:20 Blood Pressure 150/66 H 02/13/17 17:20 Pulse Oximetry 97 02/13/17 17:20 Height/Weight/BMI: Height 1.5 m Weight 155.7 kg Body Mass Index 69.3 Results - Labs CBC & Chem 7: 02/13/17 14:07 02/13/17 14:07 Assessment and Plan (1) Chest pain Current visit: Yes Status: Acute (2) Atrial fibrillation with RVR Current visit: Yes Status: Acute (3) Diabetes Current visit: No Status: Chronic (4) HTN (hypertension) Current visit: No Status: Chronic (5) Hyperlipidemia Current visit: No Status: Chronic (6) Hypothyroidism Current visit: No Status: Chronic (7) Osteoarthritis Current visit: No Status: Chronic (8) Chronic respiratory failure Current visit: No Status: Chronic (9) Oxygen dependent Current visit: Yes Status: Chronic (10) Fibromyalgia Current visit: Yes Status: Chronic (11) Chronic steroid use Current visit: Yes Status: Chronic (12) Temporal arteritis Current visit: No Status: Chronic (13) Morbid obesity Current visit: Yes Status: Chronic Assessment and Plan: Assessment Atrial fibrillation with RVR Chest pain Suspect UTI Leukocytosis Diabetes HTN (hypertension) Hyperlipidemia Hypothyroidism Osteoarthritis Chronic respiratory failure Chronically on 2 liters of oxygen by nasal cannula Oxygen dependent Fibromyalgia Temporal arteritis Chronic steroid use Morbid obesity with BMI 69.[address] Gann Have independently interviewed and examined pt. Chart reviewed. Case discussed with ED provider and my GUIDEMAN. Care plan developed with my supervision; agree with above. Presents to ED with palpitations (heart racing and could see the remote on her chest vibrating). Noted chest pain and reflux. Symptoms occurred at rest. Breathing stable. Adherent with medications. Symptoms not resolving so she sought urgent evaluation. ED found pt to be in Afib with RVR. Treated with diltiazem. Given NTG for chest pain as well as GI cocktail. Troponin without elevation. Lungs: decreased CV: irregular, rapid AB: soft obese nt MSE: awake alert appropriate Plan: OBS on tele. Consult Dr Chavez to help adjust medications to control HR. Continue Xarelto for anticoagulation. Serial enzymes. Start Rocephin for urinary coverage. Continue home medications. Monitor sugars. Continue chronic O2 for respiratory support. Hospital Course Summary Disclaimer: The visit summary below is not to be considered part of the above Progress Note.
[2017-02-13] MEDS ORDERED: MORPHINE SULFATE 2 MG SYRINGE IVP ONE (16:16)
--- NOTE | 2017-02-13 16:22 | Cardiology Consult Note ---
History of Present Illness Consult date: 02/13/17 <Isabel Claros 02/13/17 16:25> Requesting physician: Quintin Cummings <Isabel Claros 02/13/17 16:25> Consult reason: chest pain, atrial fibrillation <Isabel Claros 02/13/17 16: 25> Chief complaint: chest pain <Isabel Claros 02/13/17 16:25> History of present illness: Juliann is a 71 year old female who is well known to Dr. Chavez with a history of paroxysmal atrial fibrillation, HTN, HLD and DM type II who presented with a "burning" type substernal and epigastric chest pain. She reportedly was sleeping in her recliner when the pain woke her from sleep, she noticed a heavy fluttering in her chest and took her BP which showed a HR of 150. She states initial pain was at a 5. She received Fentanyl and NTG X2 per EMS and now rates pain at a 3. She states she was slightly nauseated at onset of pain but denies vomiting, SOA, radiation, or diaphoresis. She is examined in the ED. She denies recent illness, fever, chills, sore throat , cough, N/V/D, or dysuria. <Isabel Claros 02/13/17 21:37> Review of Systems - Constitutional Constitutional: Absent: chills, fever(s), weakness <Isabel Claros 02/13/17 21:37> - EENMT Eyes: Absent: change in vision <Isabel Claros 02/13/17 21:37> Balance: Absent: vertigo <Isabel Claros 02/13/17 21:37> Mouth/Throat: Absent: sore throat <Isabel Claros 02/13/17 21:37> - Cardiovascular Cardiovascular: Present: chest pain, palpitations. Absent: syncope, dyspnea on exertion, orthopnea <Isabel Claros 02/13/17 21:37> Vascular: Present: pedal edema <Isabel Claros 02/13/17 21:37> - Respiratory Respiratory: Present: cough. Absent: dyspnea, dyspnea on exertion <Hyacinth Isabel Tenorio 02/13/17 21:37> - Gastrointestinal Gastrointestinal: Absent: abdominal pain, nausea, vomiting <Isabel Claros 02/13/17 21:37> - Genitourinary Genitourinary: Absent: dysuria <Isabel Claros 02/13/17 21:37> - Neurological Neurological: Absent: dizziness <Isabel Claros 02/13/17 21:37> - Endocrine Endocrine: Absent: palpitations <Isabel Claros 02/13/17 21:37> [facility] Medical History Cataracts, bilateral (Acute Medical) Diabetes 1.5, managed as type 2 (Acute Medical) Dyslipidemia (Acute Medical) Fibromyalgia (Acute Medical) Hypertension (Acute Medical) Hypothyroidism (Acute Medical) aquired Idiopathic pancreatitis (Acute Medical) Insomnia (Acute Medical) Osteoarthritis (Acute Medical) Psoriasis arthropathica (Acute Medical) <Siddharth Chavez 02/19/17 16:37> Clinic Medical History Cataracts, bilateral (Acute Medical) Diabetes 1.5, managed as type 2 (Acute Medical) Dyslipidemia (Acute Medical) Fibromyalgia (Acute Medical) Hypertension (Acute Medical) Hypothyroidism (Acute Medical) aquired Idiopathic pancreatitis (Acute Medical) Insomnia (Acute Medical) Osteoarthritis (Acute Medical) Psoriasis arthropathica (Acute Medical) <Isabel Claros 02/13/17 16:25> Medical History Updates: A-fib. Diabetes mellitus. hypertension. hyperlipidemia. Temporal arteritis. GERD. thyroid disease. anxiety. O2 dependent <Isabel Claros 02/13/17 16:25> Surgical History: Tubal ligation. Hysterectomy. Thyroidectomy. Cholecystectomy <Isabel Claros 02/13/17 16:25> Family History: Family History Father Blood clots in brain Unknown Hypertension Breast cancer Mother Breast cancer Diabetes Myocardial infarct Stroke <Siddharth Chavez 02/19/17 16:37> Family History Father Blood clots in brain Unknown Hypertension Breast cancer Mother Breast cancer Diabetes Myocardial infarct Stroke <Isabel Claros 02/13/17 16:25> - Social History Smoking status: Former smoker <Isabel Claros 02/13/17 16:25> Substance use type: does not use <Isabel Claros 02/13/17 16:25> Alcohol intake frequency: does not drink <Isabel Claros M - 02/13/17 16:25> Medications Home Medications Medication Instructions Recorded Confirmed Type Pantoprazole Sodium [Protonix] 40 mg PO ACB #0 01/25/16 02/13/17 History Niacinamide [Niacin] 1,500 mg PO HS #0 05/13/16 02/13/17 History Tizanidine HCl 4 mg PO HS MDD bid 01/01/17 02/13/17 History CephALEXin [Keflex] 500 mg PO BID 02/13/17 02/13/17 History Cholecalciferol (Vitamin D3) 3,000 unit PO HS 02/13/17 02/13/17 History [Vitamin D3] DiphenhydrAMINE [Benadryl] 25 mg PO HS 02/13/17 02/13/17 History Gemfibrozil [Lopid] 600 mg PO HS 02/13/17 02/13/17 History Hydrocodone/APAP 5/325 [[place] 1 tab PO Q4-6HPRN PRN 02/13/17 02/13/17 History 5/325] Hydrocortisone 2.5% Cream 1 applic RECTALLY TID PRN 02/13/17 02/13/17 History [Anusol-Hc 2.5% Cream] Insulin Aspart [NovoLOG] 58 - 60 unit SQ TIDWM 02/13/17 02/13/17 History Insulin Glargine [Lantus] 90 unit SQ HS 02/13/17 02/13/17 History Levothyroxine Sodium 150 mg PO ACB 02/13/17 02/13/17 History Lisinopril/Hctz 10/12.5 [Prinzide 1 tab PO DAILY 02/13/17 02/13/17 History 10/12.5] Magnesium Oxide [Magnesium] 400 mg PO BID 02/13/17 02/13/17 History Multivit,Calc,Mins/Iron/Folic 1 tab PO DAILY 02/13/17 02/13/17 History [Women's Daily Caplet] PredniSONE [Deltasone] 40 mg PO WB 02/13/17 02/13/17 History Rivaroxaban [Xarelto] 20 mg PO DAILY 02/13/17 02/13/17 History Sucralfate [Carafate] 1 gm PO QID 02/13/17 02/13/17 History Tizanidine HCl 4 mg PO BID PRN 02/13/17 02/13/17 History Tramadol [Ultram] 50 mg PO BID PRN 02/13/17 02/13/17 History Tramadol [Ultram] 50 mg PO HS 02/13/17 02/13/17 History Vit C/E/Zn/Coppr/Lutein/Zeaxan 1 cap PO BID 02/13/17 02/13/17 History [Preservision Areds 2 Softgel] <Siddharth Chavez - 02/19/17 16:37> Allergies Allergy/AdvReac Type Severity Reaction Status Date / Time aspirin Allergy Verified 02/13/17 14:25 codeine Allergy Verified 02/13/17 14:25 Iodine and Iodide Containing Allergy Rash Verified 02/13/17 14:25 Produc levofloxacin [From Levaquin] Allergy Verified 02/13/17 14:25 Penicillins Allergy Verified 02/13/17 14:25 Olafvyb-Odh-Png Reductase Allergy Verified 02/13/17 14:25 Inhibitor Sulfa (Sulfonamide Allergy Verified 02/13/17 14:25 Antibiotics) butorphanol [From Stadol] AdvReac Severe aggressive Verified 02/13/17 14:25 behavior morphine AdvReac Nausea and Verified 02/13/17 14:25 Vomiting <Siddharth Chavez - 02/19/17 16:37> Exam Vital signs: Temperature 97.7 F 02/16/17 07:00 Pulse Rate 83 02/16/17 09:14 Respiratory Rate 16 02/16/17 09:14 Blood Pressure 135/67 02/16/17 09:14 Pulse Oximetry 98 02/16/17 09:14 <Siddharth Chavez - 02/19/17 16:37> Temperature 98.3 F 02/13/17 13:48 Pulse Rate 112 H 02/13/17 15:45 Respiratory Rate 25 H 02/13/17 15:45 Blood Pressure 144/70 H 02/13/17 15:45 Pulse Oximetry 94 02/13/17 15:45 <Isabel Claros - 02/13/17 16:25> - Constitutional mild distress, morbidly obese, cooperative <Isabel Claros - 02/13/17 21:37> - Routine HEENT Exam Head: Present: normocephalic <HyacinthIsabel pate 02/13/17 21:37> ENT: Present: mucous membranes moist <[facility] 02/13/17 21:37> - Routine Neck Exam Absent: JVD, carotid bruit <[facility] 02/13/17 21:37> - Routine Chest/Breast/Axilla Exam Chest wall: Absent: tenderness <[facility] 02/13/17 21:37> - Routine Respiratory Exam Present: CTA bilaterally. Absent: rales, wheezes <[facility] 02/13/17 21:37> - Routine Cardiovascular Exam Present: no murmur, tachycardia, irregular rhythm <[facility] 02/13/17 21:37> - Routine Abdominal Exam Present: soft, normoactive bowel sounds <[facility] 02/13/17 21:37> - Routine Extremities Exam Present: edema <[facility] 02/13/17 21:37> - Routine Skin Exam Present: intact, dry, warm <[facility] 02/13/17 21:37> - Routine Neurological Exam Present: alert, oriented X3 <[facility] 02/13/17 21:37> - Routine Psychiatric Exam Present: normal affect, normal thought process <[facility] 02/13/17 21: 37> Results 02/16/17 04:23 02/16/17 04:23 <Siddharth Chavez - 02/19/17 16:37> Abnormal Lab Results 02/13/17 02/13/17 02/13/17 14:02 14:07 14:07 WBC 13.6 H RBC 3.99 L Hgb 11.4 L Hct 35.7 L MCV 89.5 MCH 28.6 MCHC 31.9 RDW Std Deviation 52.0 H Plt Count 294 MPV 9.8 Immature Gran % (Auto) 0.8 H Neut % (Auto) 82.7 H Lymph % (Auto) 9.4 L [place] % (Auto) 6.3 Eos % (Auto) 0.6 Baso % (Auto) 0.2 Neut # 11.2 H Lymph # 1.3 [place] # 0.9 H Eos # 0.1 Baso # 0.0 Abs Immat Gran (auto) 0.11 H Turbidity 36 H Sodium 146 H Potassium 3.9 Chloride 105 Carbon Dioxide 30 Anion Gap 11 BUN 30.0 H Creatinine 0.9 GFR Calculation 62 BUN/Creatinine Ratio 33 H Glucose 106 Glucometer Calculated Osmolality 287 H Calcium 9.3 Magnesium 1.9 Icterus Index < 2 Troponin I 0.013 B-Natriuretic Peptide 203 H TSH 2.16 Specimen Hemolysis < 15 Ur Collection Type Urine Color Urine Clarity Urine pH Ur Specific [place] Urine Protein Urine Glucose (UA) Urine Ketones Urine Occult Blood Urine Nitrate Urine Bilirubin Urine Urobilinogen Ur Leukocyte Esterase Urine RBC Urine WBC Urine WBC Clumps Ur Squamous Epith Cells Urine Bacteria Ur Culture Indicated? 02/13/17 02/13/17 02/13/17 15:48 18:20 20:31 WBC RBC Hgb Hct MCV MCH MCHC RDW Std Deviation Plt Count MPV Immature Gran % (Auto) Neut % (Auto) Lymph % (Auto) [place] % (Auto) Eos % (Auto) Baso % (Auto) Neut # Lymph # [place] # Eos # Baso # Abs Immat Gran (auto) Turbidity Sodium Potassium Chloride Carbon Dioxide Anion Gap BUN Creatinine GFR Calculation BUN/Creatinine Ratio Glucose Glucometer 124 270 Calculated Osmolality Calcium Magnesium Icterus Index Troponin I B-Natriuretic Peptide TSH Specimen Hemolysis Ur Collection Type Urine, clean catch Urine Color Yellow Urine Clarity Sl cloudy Urine pH 5.5 Ur Specific [place] 1.015 Urine Protein Negative Urine Glucose (UA) Negative Urine Ketones Negative Urine Occult Blood 1+ A Urine Nitrate Negative Urine Bilirubin Negative Urine Urobilinogen 0.2 Ur Leukocyte Esterase 1+ A Urine RBC 0-1 Urine WBC 20-30 H Urine WBC Clumps Few Ur Squamous Epith Cells 0-5 Urine Bacteria 3+ H Ur Culture Indicated? Cult reflexed &setup Diltiazem HCl (Cardizem Cd) 120 mg PO DAILY PENDING SALE TO [facility] Last Admin: 02/13/17 18:22 Dose: 120 mg Diphenhydramine HCl (Benadryl) 25 mg PO HS PENDING SALE TO [facility] Docusate Sodium (Colace) 100 mg PO HS PENDING SALE TO [facility] Enoxaparin Sodium (Lovenox) 40 mg SQ DAILY PENDING SALE TO [facility] Gemfibrozil (Lopid) 600 mg PO HS PENDING SALE TO [facility] Lisinopril/HCTZ (Prinzide 10/12.5) 1 tab PO DAILY PENDING SALE TO [facility] Hydrocortisone (Anusol-Hc 2.5% Cream) 1 applic RECTALLY TID PRN Sodium Chloride (Normal Saline) 1,000 mls @ 100 mls/hr IV .Q10H PENDING SALE TO [facility] Last Infusion: 02/13/17 17:25 Dose: 100 mls/hr Ceftriaxone Sodium 1 g/ Sodium (Chloride) 100 mls @ 200 mls/hr IV DAILY [facility] Diltiazem HCl 125 mg/ Sodium (Chloride) 125 mls @ 0 mls/hr IV PRN CARMEL PRN Reason: Protocol Insulin Aspart (Novolog) 58 - 60 unit SQ TIDWM PENDING SALE TO [facility] Last Admin: 02/13/17 18:57 Dose: 50 unit Insulin Glargine (Lantus) 90 unit SQ HS [facility] Levothyroxine Sodium (Synthroid) 150,000 mcg PO ACB PENDING SALE TO [facility] Magnesium Oxide (Magox) 400 mg PO BID [facility] Metoprolol Tartrate (Lopressor) 50 mg PO BIDWM PENDING SALE TO [facility] Last Admin: 02/13/17 18:22 Dose: 50 mg Morphine Sulfate (Morphine Sulfate Inj) 2 mg IVP Q3-4HR PRN PRN Reason: Pain Nitroglycerin (Nitrostat) 0.4 mg SL Q5MIN3 PRN PRN Reason: Chest pain Last Admin: 02/13/17 15:57 Dose: 0.4 mg Ondansetron HCl (Zofran) 4 mg IVP Q6H PRN PRN Reason: Nausea Pantoprazole Sodium (Protonix Tab) 40 mg PO ACB PENDING SALE TO [facility] Prednisone (Deltasone) 40 mg PO WB [facility] Rivaroxaban (Xarelto) 20 mg PO WS PENDING SALE TO [facility] Sodium Chloride (Iv Flush) 10 - 80 ml IVF PRN PRN PRN Reason: Flushing Last Admin: 02/13/17 14:14 Dose: 10 ml Sucralfate (Carafate) 1 gm PO QID PENDING SALE TO [facility] Last Admin: 02/13/17 18:43 Dose: 1 gm Tizanidine HCl (Zanaflex) 4 mg PO BID PRN Tizanidine HCl (Zanaflex) 4 mg PO HS PENDING SALE TO [facility] Tramadol HCl (Ultram) 50 mg PO BID PRN PRN Reason: Pain <Isabel Claros - 02/13/17 21:37> - Imaging and Cardiology Imaging & Cardiology Narrative: Date of Exam: 02/13/17 Ordering Provider: Julia Granados APRN Type of Exam(s): XR chest 1V Reason for Exam(s): chest pain Indication: chest pain PROCEDURE: XR chest 1V: Encounter: Initial Comparison: January 01, 2017 Findings: The lungs are stable in appearance without new focal airspace consolidation. There is no pleural effusion or pneumothorax. The heart size, pulmonary vascularity and mediastinal contours are unchanged. IMPRESSION: Stable appearance of the chest without acute cardiopulmonary disease. 02/13/17 21:36 <Isabel Claros - 02/13/17 21:37> EKG interpretations - Dysrhythmias Supraventricular dysrhythmia: atrial flutter <Isabel Claros - 02/13/17 21:37> Assessment and Plan (1) HTN (hypertension) Status: Chronic (2) Diabetes Status: Chronic (3) Hyperlipidemia Status: Chronic (4) Atrial fibrillation with RVR Status: Acute (5) Chest pain Status: Acute <Siddharth Chavez - 02/19/17 16:37> (1) Atrial fibrillation with RVR Status: Acute Acute on chronic. Cardioverted 6 weeks ago. Plan is to control rate and refer for ablation as outpatient. Stop Sotalol and start Metoprolol 50mg po BID. Continue Xarelto. (2) Chest pain Status: Acute Trend serial troponin. May need outpatient heart cath due to recurrent chest pain (3) HTN (hypertension) Status: Chronic Continue home Lisinopril HCTZ (4) Diabetes Status: Chronic (5) Hyperlipidemia Status: Chronic <Isabel Claros - 02/13/17 21:17> - Attestation Attestation Narrative: 02/19/17 16:37 Recommendation After examining the patient I agree with the above assessment. I am involved in the formulation of the patient's plan of care. <Siddharth Chavez - 02/19/17 16:37> Hospital Course Summary Disclaimer: The visit summary below is not to be considered part of the above Progress Note. <Siddharth Chavez - 02/19/17 16:37> The visit summary below is not to be considered part of the above Progress Note. <Isabel Claros - 02/13/17 16:25> Hospital Course: 02/13/17 17:39 AFib RVR: Acute on chronic. Cardioverted 6 weeks ago. Plan is to control rate and refer for ablation as outpatient. Check tsh, mag. Stop Sotalol and start Metoprolol 50mg po BID. Continue Xarelto. Chest pain: Trend serial troponin. May need outpatient heart cath due to recurrent chest pain HTN: Continue home lisinopril/hctz Thank you for allowing us to participate in the care of this patient. <Isabel Claros 02/13/17 21:37> Sepsis Assessment - Evaluation Sepsis screening result: No Definite Risk <Isabel Claros 02/13/17 16:25>
[2017-02-13] MEDS ORDERED: ONDANSETRON 4 MG/2 ML INJECTION IV ONE (16:28)
[2017-02-13 17:22] VITALS: BMI 69.3
[2017-02-13] MEDS ORDERED: TRAMADOL 50 MG TABLET PO PRN (17:24)
[2017-02-13] MEDS ORDERED: HYDROCORTISONE 2.5% CREAM 30gm RECTALLY PRN (17:24)
[2017-02-13] MEDS: SUCRALFATE 1 GM TABLET PO SCH ×2 (18:43→22:38)
[2017-02-13] MEDS: INSULIN ASPART 100unit/ml INJECTION SQ SCH (18:57)
[2017-02-13] MEDS ORDERED: ENOXAPARIN 40 MG/0.4 ML INJECTION SQ SCH (20:02)
[2017-02-13] MEDS ORDERED: ONDANSETRON 4 MG/2 ML INJECTION IVP PRN (20:02)
[2017-02-13] MEDS ORDERED: DOCUSATE SODIUM 100 MG CAPSULE PO SCH (21:00)
[2017-02-13] MEDS ORDERED: TIZANIDINE 4 MG PO PRN (21:00)
[2017-02-13] MEDS ORDERED: DiltiaZEM Drip 125 MG in NS 100 ML IV SCH (21:00)
[2017-02-13] MEDS: CEFTRIAXONE 1 G in NS 100 ML IV SCH (21:48)
[2017-02-13] MEDS: INSULIN GLARGINE 100unit/ml INJECTION SQ SCH (22:35)
[2017-02-13] MEDS: GEMFIBROZIL 600 MG TABLET PO SCH (22:39)
[2017-02-13] MEDS: TIZANIDINE 4 MG PO SCH (22:39)
[2017-02-13] MEDS: MAGNESIUM OXIDE 400 MG TABLET PO SCH (22:40)
[2017-02-13] MEDS: DiphenhydrAMINE 25 MG CAPSULE PO SCH (22:44)
[2017-02-13] MEDS: MORPHINE SULFATE 2 MG SYRINGE IVP PRN (23:14)
[2017-02-14] MEDS: NS 1,000 ML IV SCH ×2 (03:11→14:35)
[2017-02-14] MEDS: MORPHINE SULFATE 2 MG SYRINGE IVP PRN ×5 (04:17→23:25)
[2017-02-14] MEDS ORDERED: LEVOTHYROXINE 150 MCG TABLET PO SCH (06:30)
[2017-02-14] MEDS: PANTOPRAZOLE 40 MG TABLET PO SCH (06:36)
[2017-02-14] MEDS: SUCRALFATE 1 GM TABLET PO SCH ×4 (06:37→21:33)
[2017-02-14] MEDS: INSULIN ASPART 100unit/ml INJECTION SQ SCH ×3 (08:55→17:50)
[2017-02-14] MEDS: MAGNESIUM OXIDE 400 MG TABLET PO SCH ×2 (09:03→21:34)
[2017-02-14] MEDS: LISINOPRIL/HCTZ 10/12.5 MG TABLET PO SCH (09:03)
[2017-02-14] MEDS: PREDNISONE 20 MG PO SCH (09:33)
[2017-02-14] MEDS: POLYETHYL GLYCOL 3350 17gm PACKET PO SCH (10:27)
[2017-02-14] MEDS: PSYLLIUM PACKET PO SCH (10:27)
[2017-02-14] MEDS: DiltiaZEM IR 60 MG TABLET PO SCH ×3 (10:39→21:36)
[2017-02-14] MEDS ORDERED: DiltiaZEM 25 MG/5 ML INJECTION IVP ONE (11:10)
[2017-02-14] MEDS: CEFTRIAXONE 1 G in NS 100 ML IV SCH (11:23)
--- NOTE | 2017-02-14 13:56 | Progress Note ---
Subjective: Mrs. Rogers reported minor chest discomfort this morning with decreased palpitations. She feels somewhat constipated but is passing gas and continues to have spotting of rectal blood due to hemorrhoids/anticoagulation. She is voiding well and reports dysuria is improving. She describes occasional wheezing but denies dyspnea or exertional dyspnea acknowledging that she's had virtually no activity since transfer to the unit overnight. Heart rate has been well controlled on diltiazem drip following initiation. Objective Vital signs: Temperature 97.7 F 02/14/17 04:00 Pulse Rate 78 02/14/17 05:30 Respiratory Rate 15 02/14/17 05:30 Blood Pressure 118/66 02/14/17 05:30 Pulse Oximetry 97 02/14/17 05:30 2 L supplemental oxygen per nasal cannula I/O 2137/625 EXAM General-NAD, alert, morbidly obese HEENT-PER, conjunctiva clear, anicteric, oropharynx clear Lungs-respirations nonlabored, decreased airflow throughout, faint wheezing posterior left lung field Cardiac-irregular rhythm, diminished heart tones Abd-soft, nontender, no sounds present Ext-without edema Neuro-moving upper extremities spontaneously/normally Psych-calm, cooperative - Results - Labs CBC & Chem 7: 02/14/17 04:15 02/14/17 04:15 Labs: Troponin 0.013-0.015-0.021 Microbiology Results: Urine culture 02/13/17 > [id number] [id number] - ECG Data Tracing #1 I reviewed this ECG and interpreted as documented below: (telemetry reviewed- atrial flutter since midnight with rates 80-100) Assessment and Plan (1) Atrial fibrillation with RVR Current visit: Yes Status: Acute (2) Chest pain Current visit: Yes Status: Acute (3) Chronic respiratory failure Problem details: Chronic 2L home O2 Current visit: No Status: Chronic Chronically on 2 liters of oxygen by nasal cannula DVT Prophylaxis: Xarelto GI Prophylaxis: Protonix Resuscitation Status: Full Code Assessment and Plan: Assessment Atrial fibrillation with RVR Chest pain UTI Leukocytosis Diabetes HTN (hypertension) Hyperlipidemia Hypothyroidism Osteoarthritis Chronic respiratory failure Chronically on 2 liters of oxygen by nasal cannula Oxygen dependent Fibromyalgia Temporal arteritis Chronic steroid use Morbid obesity with BMI 69.[address] Gann Rate controlled with IV diltiazem this morning, discussed with cardiology and have begun conversion to oral diltiazem at 60 mg every 6 hours with plan to change to extended release Cardizem 240 mg in the morning. Continue Xarelto. Longer-term plans per Dr. Chavez and his team. Blood pressure is stable. Will move back out of the unit on diltiazem. Converted to inpatient status due to need for IV diltiazem and continued monitoring to assure stable rhythm while medications are modified. Early urine culture with gram-negative marie, symptoms improving with ceftriaxone. Blood sugar control adequate, Accu-Cheks switched to fasting and two-hour postprandial. Check A1c in a.m. Continue supplemental oxygen for chronic respiratory failure as per home regimen. TSH within normal range, troponins unremarkable. Case reviewed with cardiology and nursing; telemetry strips reviewed by myself, laboratory data reviewed. Sepsis Assessment - Evaluation Sepsis screening result: No Definite Risk Hospital Course Summary Disclaimer: The visit summary below is not to be considered part of the above Progress Note. Hospital Course: 02/13/17-hospitalist Social placed to Dr. Chavez for his cardiac recommendations and treatment. Will monitor patient on Cardiac telemetry and obtain serial troponins 3. Continue with chronic oxygen, baseline 2 liters at home. Patient is chronically on Xarelto 20 milligrams daily for chronic anticoagulation and this will be continued. On Keflex prior to admission for unclear reason. 02/13/17 17:39 AFib RVR: Acute on chronic. Cardioverted 6 weeks ago. Plan is to control rate and refer for ablation as outpatient. Check tsh, mag. Stop Sotalol and start Metoprolol 50mg po BID. Continue Xarelto. Chest pain: Trend serial troponin. May need outpatient heart cath due to recurrent chest pain HTN: Continue home lisinopril/hctz Thank you for allowing us to participate in the care of this patient. 02/14/17 14:11-hospitalist Rate controlled with IV diltiazem this morning, discussed with cardiology and have begun conversion to oral diltiazem at 60 mg every 6 hours with plan to change to extended release Cardizem 240 mg in the morning. Continue Xarelto. Longer-term plans per Dr. Chavez and his team. Blood pressure is stable. Will move back out of the unit on diltiazem. Converted to inpatient status due to need for IV diltiazem and continued monitoring to assure stable rhythm while medications are modified. Early urine culture with gram-negative marie, symptoms improving with ceftriaxone. Previously treated with Keflex. Blood sugar control adequate, Accu-Cheks switched to fasting and two-hour postprandial. Continue supplemental oxygen for chronic respiratory failure as per home regimen. TSH within normal range, troponins unremarkable.
[2017-02-14] MEDS: RIVAROXABAN 20 MG TABLET PO SCH (17:19)
[2017-02-14] MEDS: SENNA + DOCUSATE TABLET PO SCH (21:34)
[2017-02-14] MEDS: GEMFIBROZIL 600 MG TABLET PO SCH (21:35)
[2017-02-14] MEDS: DiphenhydrAMINE 25 MG CAPSULE PO SCH (21:35)
[2017-02-14] MEDS: INSULIN GLARGINE 100unit/ml INJECTION SQ SCH (21:36)
[2017-02-14] MEDS: TIZANIDINE 4 MG PO SCH (21:38)
--- NOTE | 2017-02-14 23:20 | Cardiology Progress Note ---
Subjective Principal diagnosis: Atrial Fibrillation with RVR <Preethi Loja R - 02/14/17 23 :39> Interval history: CC: AFIB w/RVR Ms. Rogers is laying in bed this evening finishing her supper. She had been moved to the ICU over night for Afib with HR in 120-140's and placed on cardizem gtt. She then went into Aflutter with a controlled rate in the 70's-80' s. She was then moved back to the medical floor on tele. Remains aflutter, states HR up in the low 100's earlier but with activity of getting up to the BR and exertion. States at home she does not ambulate as far. Currently denies any CP, palpitations, SOA, N/V, diaphoresis. <Preethi Loja R - 02/14/17 23:39> Exam Vital signs: Temperature 97.7 F 02/16/17 07:00 Pulse Rate 83 02/16/17 09:14 Respiratory Rate 16 02/16/17 09:14 Blood Pressure 135/67 02/16/17 09:14 Pulse Oximetry 98 02/16/17 09:14 <Siddharth Chavez - 02/18/17 16:08> Temperature 96.9 F 02/14/17 14:41 Pulse Rate 88 02/14/17 16:08 Respiratory Rate 24 02/14/17 14:36 Blood Pressure 150/67 H 02/14/17 14:36 Pulse Oximetry 95 02/14/17 14:36 <Preethi Loja R - 02/14/17 23:39> Narrative: 02/14/17 04:15 02/14/17 04:15 Laboratory Results - last 24 hr 02/14/17 02/14/17 02/14/17 04:15 04:15 06:42 WBC 15.6 H RBC 4.10 Hgb 11.4 L Hct 36.8 MCV 89.8 MCH 27.8 MCHC 31.0 RDW Std Deviation 54.1 H Plt Count 338 MPV 9.9 Immature Gran % (Auto) 0.7 H Neut % (Auto) 73.6 H Lymph % (Auto) 17.7 L Fannin % (Auto) 7.5 Eos % (Auto) 0.3 Baso % (Auto) 0.2 Neut # 11.5 H Lymph # 2.8 Fannin # 1.2 H Eos # 0.1 Baso # 0.0 Abs Immat Gran (auto) 0.11 H Turbidity < 20 Sodium 144 Potassium 4.3 Chloride 104 Carbon Dioxide 31 H Anion Gap 9 BUN 34.0 H Creatinine 1.0 GFR Calculation 55 BUN/Creatinine Ratio 34 H Glucose 99 Glucometer 116 Calculated Osmolality 285 H Calcium 9.3 Icterus Index < 2 Troponin I 0.021 Specimen Hemolysis < 15 02/14/17 02/14/17 02/14/17 12:03 16:57 21:03 WBC RBC Hgb Hct MCV MCH MCHC RDW Std Deviation Plt Count MPV Immature Gran % (Auto) Neut % (Auto) Lymph % (Auto) Fannin % (Auto) Eos % (Auto) Baso % (Auto) Neut # Lymph # Fannin # Eos # Baso # Abs Immat Gran (auto) Turbidity Sodium Potassium Chloride Carbon Dioxide Anion Gap BUN Creatinine GFR Calculation BUN/Creatinine Ratio Glucose Glucometer 163 168 158 Calculated Osmolality Calcium Icterus Index Troponin I Specimen Hemolysis Intake & Output 02/12/17 02/13/17 02/14/17 02/15/17 06:59 06:59 06:59 06:59 Intake Total 2137.167 / 2137.167 818.333 / 818.333 Output Total 625 / 625 Balance 1512.167 / 1512.167 818.333 / 818.333 Weight 155.7 kg 157.8 kg Home Medications Pantoprazole Sodium [Protonix] 40 mg PO ACB #0 01/25/16 [History Confirmed 02/13] Niacinamide [Niacin] 1,500 mg PO HS #0 05/13/16 [History Confirmed 02/13/17] Tizanidine HCl 4 mg PO HS MDD bid 01/01/17 [History Confirmed 02/13/17] Nitroglycerin [Nitrostat] 0.4 mg SL Q5MIN3 PRN #25 tablet 01/02/17 [Rx Confirmed 02/13/17] Sotalol [Betapace] 80 mg PO ACBID #60 tablet 01/02/17 [Rx Confirmed 02/13/17] CephALEXin [Keflex] 500 mg PO BID 02/13/17 [History Confirmed 02/13/17] Cholecalciferol (Vitamin D3) [Vitamin D3] 3,000 unit PO HS 02/13/17 [History Confirmed 02/13/17] DiphenhydrAMINE [Benadryl] 25 mg PO HS 02/13/17 [History Confirmed 02/13/17] Docusate Sodium [Colace] 100 mg PO HS 02/13/17 [History Confirmed 02/13/17] Gemfibrozil [Lopid] 600 mg PO HS 02/13/17 [History Confirmed 02/13/17] Hydrocodone/APAP 5/325 [Llano 5/325] 1 tab PO Q4-6HPRN PRN 02/13/17 [History Confirmed 02/13/17] Hydrocortisone 2.5% Cream [Anusol-Hc 2.5% Cream] 1 applic RECTALLY TID PRN 02/13 [History Confirmed 02/13/17] Insulin Aspart [NovoLOG] 58 - 60 unit SQ TIDWM 02/13/17 [History Confirmed 02/13] Insulin Glargine [Lantus] 90 unit SQ HS 02/13/17 [History Confirmed 02/13/17] Levothyroxine Sodium 150 mg PO ACB 02/13/17 [History Confirmed 02/13/17] Lisinopril/Hctz 10/12.5 [Prinzide 10/12.5] 1 tab PO DAILY 02/13/17 [History Confirmed 02/13/17] Magnesium Oxide [Magnesium] 400 mg PO BID 02/13/17 [History Confirmed 02/13/17] Multivit,Calc,Mins/Iron/Folic [Women's Daily Caplet] 1 tab PO DAILY 02/13/17 [ History Confirmed 02/13/17] PredniSONE [Deltasone] 40 mg PO WB 02/13/17 [History Confirmed 02/13/17] Rivaroxaban [Xarelto] 20 mg PO DAILY 02/13/17 [History Confirmed 02/13/17] Sucralfate [Carafate] 1 gm PO QID 02/13/17 [History Confirmed 02/13/17] Tizanidine HCl 4 mg PO BID PRN 02/13/17 [History Confirmed 02/13/17] Tramadol [Ultram] 50 mg PO BID PRN 02/13/17 [History Confirmed 02/13/17] Tramadol [Ultram] 50 mg PO HS 02/13/17 [History Confirmed 02/13/17] Vit C/E/Zn/Coppr/Lutein/Zeaxan [Preservision Areds 2 Softgel] 1 cap PO BID 02/13 [History Confirmed 02/13/17] Current Medications Diltiazem HCl (Cardizem Ir) 60 mg PO ACHS [facility] Stop: 02/15/17 05:00 Last Admin: 02/14/17 21:36 Dose: 60 mg Diltiazem HCl (Cardizem Cd) 240 mg PO DAILY [facility] Diphenhydramine HCl (Benadryl) 25 mg PO HS [facility] Last Admin: 02/14/17 21:35 Dose: 25 mg Gemfibrozil (Lopid) 600 mg PO HS [facility] Last Admin: 02/14/17 21:35 Dose: 600 mg Lisinopril/HCTZ (Prinzide 10/12.5) 1 tab PO DAILY [facility] Last Admin: 02/14/17 09:03 Dose: 1 tab Hydrocortisone (Anusol-Hc 2.5% Cream) 1 applic RECTALLY TID PRN Ceftriaxone Sodium 1 g/ Sodium (Chloride) 100 mls @ 200 mls/hr IV DAILY [facility] Last Infusion: 02/14/17 12:00 Dose: Infused Insulin Aspart (Novolog) 58 - 60 unit SQ TIDWM [facility] Last Admin: 02/14/17 17:50 Dose: 55 unit Insulin Glargine (Lantus) 90 unit SQ HS [facility] Last Admin: 02/14/17 21:36 Dose: 90 unit Levothyroxine Sodium (Synthroid) 150 mcg PO ACB [facility] Magnesium Hydroxide (Mom) 30 ml PO DAILY PRN PRN Reason: Constipation Magnesium Oxide (Magox) 400 mg PO BID [facility] Last Admin: 02/14/17 21:34 Dose: 400 mg Morphine Sulfate (Morphine Sulfate Inj) 2 mg IVP Q3-4HR PRN PRN Reason: Pain Last Admin: 02/14/17 19:28 Dose: 2 mg Nitroglycerin (Nitrostat) 0.4 mg SL Q5MIN3 PRN PRN Reason: Chest pain Last Admin: 02/13/17 15:57 Dose: 0.4 mg Ondansetron HCl (Zofran) 4 mg IVP Q6H PRN PRN Reason: Nausea Pantoprazole Sodium (Protonix Tab) 40 mg PO ACB [facility] Last Admin: 02/14/17 06:36 Dose: 40 mg Polyethylene Glycol (Miralax) 17 gm PO DAILY [facility] Last Admin: 02/14/17 10:27 Dose: 17 gm Prednisone (Deltasone) 40 mg PO WB [facility] Last Admin: 02/14/17 09:33 Dose: 40 mg Psyllium Hydrophilic Mucilloid (Metamucil) 1 packet PO DAILY [facility] Last Admin: 02/14/17 10:27 Dose: 1 packet Rivaroxaban (Xarelto) 20 mg PO WS [facility] Last Admin: 02/14/17 17:19 Dose: 20 mg Senna/Docusate Sodium (Senna Plus Tablet) 2 tab PO BID [facility] Last Admin: 02/14/17 21:34 Dose: 2 tab Sodium Chloride (Iv Flush) 10 - 80 ml IVF PRN PRN PRN Reason: Flushing Last Admin: 02/13/17 14:14 Dose: 10 ml Sucralfate (Carafate) 1 gm PO ACHS [facility] Last Admin: 02/14/17 21:33 Dose: 1 gm Tizanidine HCl (Zanaflex) 4 mg PO BID PRN Tizanidine HCl (Zanaflex) 4 mg PO HS [facility] Last Admin: 02/14/17 21:38 Dose: 4 mg Tramadol HCl (Ultram) 50 mg PO BID PRN PRN Reason: Pain <Ecton,Preethi 02/14/17 23:39> - Constitutional no acute distress, morbidly obese <Ecton,Preethi 02/14/17 23:39> - Routine HEENT Exam Head: Present: normocephalic <Ecton,Preethi 02/14/17 23:39> Eye: Present: EOMI <Ecton,Preethi 02/14/17 23:39> ENT: Present: mucous membranes moist <Ecton,Preethi 02/14/17 23:39> - Routine Respiratory Exam Present: dyspnea, decreased breath sounds. Absent: respiratory distress, rhonchi, wheezes, crackles <Ecton,Preethi 02/14/17 23:39> - Routine Cardiovascular Exam Present: irregular rhythm. Absent: no murmur, gallop, rubs, JVD <Ecton,Preethi 02/14/17 23:39> - Routine Abdominal Exam Present: normoactive bowel sounds. Absent: soft <Preethi Loja 02/14/17 23: 39> - Routine Extremities Exam Present: edema (Trace to 1+), pulses intact <Preethi Loja 02/14/17 23:39> - Routine Skin Exam Present: intact, dry. Absent: cyanosis, erythema <EctPreethi alcantara 02/14/17 23 :39> - Routine Neurological Exam Present: alert, oriented X3 <Preethi Loja 02/14/17 23:39> - Routine Psychiatric Exam Present: normal affect, cooperative <EctPreethi alcantara 02/14/17 23:39> - Urinary Catheter Management Straight Cath placed during this visit: no <Siddharth Chavez - 02/18/17 16:08> yes, but has since been removed by the nurse <Preethi Loja 02/15/17 15:25> Insertion date: 02/13/17 <EctPreethi alcantara 02/14/17 23:39> Insertion time: 15:50 <Preethi Loja 02/14/17 23:39> Removal date: 02/13/17 <EctonPreethi 02/14/17 23:39> Removal time: 15:55 <EctonPreethi 02/14/17 23:39> Progress Note-A&P (1) HTN (hypertension) Status: Chronic (2) Diabetes Status: Chronic (3) Hyperlipidemia Status: Chronic (4) Atrial fibrillation with RVR Status: Acute (5) Chest pain Status: Acute <EdwigeeverSiddharth camacho - 02/18/17 16:08> (1) Atrial fibrillation with RVR Status: Acute Assessment and plan: discussed and transitioned pt from Cardizem gtt to PO TID IR dosing. Will start 180mg XR tomorrow AM. Con't Xarelto for anticoagulation. Repeat ECG in AM.TSH 2.16, K+3.9, Mag 1.9. Planning outpt f/u for ablation if remains rate controlled. (2) HTN (hypertension) Status: Chronic Assessment and plan: Beginning to have some elevations in BP. Sotalol recently d/c'd. Will monitor BP with Diltiazem 240mg ER tomorrow. May need to increase meds. (3) Diabetes Status: Chronic Assessment and plan: TID WM novolog and HS Lantus. Attending managing. (4) Hyperlipidemia Status: Chronic Assessment and plan: Con't Lopid. No ASA d/t Xarelto. (5) Chest pain Status: Acute Assessment and plan: Troponin trend negative, ECG shows Afib with no ischemic changes. Resolved at this time, likely 2/2 afib. Con't medical tx. <PurviPreethi Jaime - 02/15/17 15:24> - Time Spent With Patient Total time spent is greater than 50% in coordination of care (as documented) at patient's floor/unit and/or counseling patient: <Siddharth Chavez - 02/18/17 16:08> Total time spent is greater than 50% in coordination of care (as documented) at patient's floor/unit and/or counseling patient: <PurviPreethi Jaime 02/14/17 23:39> less than 15 minutes <PurviPreethi Jaime 02/14/17 23:54> - Attestation Attestation Narrative: Recommendation After examining the patient I agree with the above assessment. I am involved in the formulation of the patient's plan of care. <Siddharth Chavez - 02/18/17 16:08> Sepsis Assessment - Evaluation Sepsis screening result: No Definite Risk <PurviPreethi Jaime 02/14/17 23:39> Hospital Course Summary Disclaimer: The visit summary below is not to be considered part of the above Progress Note. <Siddharth Chavez - 02/18/17 16:08> The visit summary below is not to be considered part of the above Progress Note. <PurviPreethi Sandoval 02/14/17 23:39> Hospital Course: 02/13/17-hospitalist Social placed to Dr. Chavez for his cardiac recommendations and treatment. Will monitor patient on Cardiac telemetry and obtain serial troponins 3. Continue with chronic oxygen, baseline 2 liters at home. Patient is chronically on Xarelto 20 milligrams daily for chronic anticoagulation and this will be continued. On Keflex prior to admission for unclear reason. 02/13/17 17:39 AFib RVR: Acute on chronic. Cardioverted 6 weeks ago. Plan is to control rate and refer for ablation as outpatient. Check tsh, mag. Stop Sotalol and start Metoprolol 50mg po BID. Continue Xarelto. Chest pain: Trend serial troponin. May need outpatient heart cath due to recurrent chest pain HTN: Continue home lisinopril/hctz Thank you for allowing us to participate in the care of this patient. 02/14/17 14:11-hospitalist Rate controlled with IV diltiazem this morning, discussed with cardiology and have begun conversion to oral diltiazem at 60 mg every 6 hours with plan to change to extended release Cardizem 240 mg in the morning. Continue Xarelto. Longer-term plans per Dr. Chavez and his team. Blood pressure is stable. Will move back out of the unit on diltiazem. Converted to inpatient status due to need for IV diltiazem and continued monitoring to assure stable rhythm while medications are modified. Early urine culture with gram-negative marie, symptoms improving with ceftriaxone. Previously treated with Keflex. Blood sugar control adequate, Accu-Cheks switched to fasting and two-hour postprandial. Continue supplemental oxygen for chronic respiratory failure as per home regimen. TSH within normal range, troponins unremarkable. <Preethi Loja R - 02/14/17 23:54>
[2017-02-14] MEDS: SALINE FLUSH 10ml SYRINGE IVF PRN (23:25)
[2017-02-15] MEDS: SALINE FLUSH 10ml SYRINGE IVF PRN ×5 (06:22→20:09)
[2017-02-15] MEDS: MORPHINE SULFATE 2 MG SYRINGE IVP PRN ×3 (06:22→20:08)
[2017-02-15] MEDS: LEVOTHYROXINE 150 MCG TABLET PO SCH (06:23)
[2017-02-15] MEDS: SUCRALFATE 1 GM TABLET PO SCH ×4 (06:23→21:48)
[2017-02-15] MEDS: PANTOPRAZOLE 40 MG TABLET PO SCH (06:23)
[2017-02-15] MEDS: LISINOPRIL/HCTZ 10/12.5 MG TABLET PO SCH (08:10)
[2017-02-15] MEDS: MAGNESIUM OXIDE 400 MG TABLET PO SCH ×2 (08:10→21:48)
[2017-02-15] MEDS: POLYETHYL GLYCOL 3350 17gm PACKET PO SCH (08:10)
[2017-02-15] MEDS: SENNA + DOCUSATE TABLET PO SCH ×2 (08:10→21:48)
[2017-02-15] MEDS: PSYLLIUM PACKET PO SCH ×2 (08:10→08:14)
[2017-02-15] MEDS: PREDNISONE 20 MG PO SCH (08:11)
[2017-02-15] MEDS: INSULIN ASPART 100unit/ml INJECTION SQ SCH ×3 (08:11→17:57)
[2017-02-15] MEDS ORDERED: NS FLUSH BAG 500ml IV PRN (08:52)
[2017-02-15] MEDS: CEFTRIAXONE 1 G in NS 100 ML IV SCH (09:43)
[2017-02-15] MEDS ORDERED: SULFAMETHOXAZOLE/TMP 800 MG/160 MG DS TABLET PO SCH (10:00)
--- NOTE | 2017-02-15 13:36 | Progress Note ---
<Deena Velez - Last Filed: 02/15/17 13:33> Subjective: Juliann is seen today in follow up. She reports that she is more SOA today, is worried about her HR being over 100 (HR is 101-105). She states that she is hesitant to return home. Is a bit hypoxic, but her O2 seems to be around 1.5L/NC- I increased to 2L with improvement in her O2 sats to 95%. Chart is reviewed for collateral information. Objective Vital signs: Temperature 97.0 F 02/15/17 12:09 Pulse Rate 95 02/15/17 12:09 Respiratory Rate 24 02/15/17 07:20 Blood Pressure 154/69 H 02/15/17 12:09 Pulse Oximetry 96 02/15/17 12:09 Rhythm: Atrial Fibrillation with Normal Ventricular Rate (Borderline HR. ) Height/Weight/BMI: Weight 156 kg - Constitutional Present: mild distress, morbidly obese, cooperative Comments: Mildly SOA at rest. - Routine HEENT Exam Head: Present: normocephalic, atraumatic Eye: Present: EOMI, PERRL, normal accommodation ENT: Present: mucous membranes moist - Routine Respiratory Exam Present: decreased breath sounds, wheezes (Faint intermittent wheezes), distant breath sounds, diminished air movement - Routine Cardiovascular Exam Present: S1, S2, irregular rhythm, irregularly irregular - Routine Abdominal Exam Present: soft, normoactive bowel sounds, non distended, non tender - Routine Extremities Exam Present: edema (Trace), non tender - Routine Skin Exam Present: intact, dry, warm - Routine Neurological Exam Present: alert, oriented X3 - Routine Psychiatric Exam Present: normal affect, normal thought process, anxious Results - Labs CBC & Chem 7: 02/15/17 04:15 02/15/17 04:15 Microbiology Results: Microbiology 02/13/17 15:48 Urine, Voided (Cc/notcc) Urine Culture - Final Escherichia coli- +ESBL Assessment and Plan (1) Chronic respiratory failure Problem details: Chronic 2L home O2 Current visit: No Status: Chronic Chronically on 2 liters of oxygen by nasal cannula (2) Atrial fibrillation with RVR Current visit: Yes Status: Acute (3) Chest pain Current visit: Yes Status: Acute DVT Prophylaxis: Xarelto GI Prophylaxis: Protonix Resuscitation Status: Full Code Assessment and Plan: Assessment Atrial fibrillation with RVR Chest pain UTI,ESBL E.Coli Leukocytosis Diabetes HTN (hypertension) Hyperlipidemia Hypothyroidism Osteoarthritis Chronic respiratory failure Chronically on 2 liters of oxygen by nasal cannula Oxygen dependent Fibromyalgia Temporal arteritis Chronic steroid use Morbid obesity with BMI 69.3 Plan: 02/15/17 (Covering physician for Dr Gann) Patient reports concern for SOA. Will work on improved HR control today. D/W Dr. Gaytan- increase Cardizem and monitor. Continue Xarelto. Potential DC tomorrow. DM2- Insulin. Fairly good control. Continue Tramadol for pain- will ask for Morphine to be given only for chest pain. Will allow increase in frequency of tramadol. Weight is reviewed- she is back to admission weight. Will give her some additional diuretics to see if that will improve SOA. IV Lasix, KCL x 1 now. Suspect some underlying diastolic HF/OHS. Will obtain CXR as well. Continue O2, Encourage mobility, Add I.S. ESBL EColi UTI +: Add Macrobid due to multiple allergies listed. Needs to be treated given significant UA changes with leukocytosis. Repeat labs in AM. Potential DC to home tomorrow if stable. Sepsis Assessment - Evaluation Sepsis screening result: No Definite Risk Hospital Course Summary Disclaimer: The visit summary below is not to be considered part of the above Progress Note. Hospital Course: 02/13/17-hospitalist Social placed to Dr. Chavez for his cardiac recommendations and treatment. Will monitor patient on Cardiac telemetry and obtain serial troponins 3. Continue with chronic oxygen, baseline 2 liters at home. Patient is chronically on Xarelto 20 milligrams daily for chronic anticoagulation and this will be continued. On Keflex prior to admission for unclear reason. 02/13/17 17:39 AFib RVR: Acute on chronic. Cardioverted 6 weeks ago. Plan is to control rate and refer for ablation as outpatient. Check tsh, mag. Stop Sotalol and start Metoprolol 50mg po BID. Continue Xarelto. Chest pain: Trend serial troponin. May need outpatient heart cath due to recurrent chest pain HTN: Continue home lisinopril/hctz Thank you for allowing us to participate in the care of this patient. 02/14/17 14:11-hospitalist Rate controlled with IV diltiazem this morning, discussed with cardiology and have begun conversion to oral diltiazem at 60 mg every 6 hours with plan to change to extended release Cardizem 240 mg in the morning. Continue Xarelto. Longer-term plans per Dr. Chavez and his team. Blood pressure is stable. Will move back out of the unit on diltiazem. Converted to inpatient status due to need for IV diltiazem and continued monitoring to assure stable rhythm while medications are modified. Early urine culture with gram-negative marie, symptoms improving with ceftriaxone. Previously treated with Keflex. Blood sugar control adequate, Accu-Cheks switched to fasting and two-hour postprandial. Continue supplemental oxygen for chronic respiratory failure as per home regimen. TSH within normal range, troponins unremarkable. 02/15/17 13:54 Patient reports concern for SOA. Will work on improved HR control today. D/W Dr. Gaytan- increase Cardizem and monitor. Continue Xarelto. Potential DC tomorrow. DM2- Insulin. Fairly good control. Continue Tramadol for pain- will ask for Morphine to be given only for chest pain. Will allow increase in frequency of tramadol. Weight is reviewed- she is back to admission weight. Will give her some additional diuretics to see if that will improve SOA. IV Lasix, KCL x 1 now. Suspect some underlying diastolic HF/OHS. Will obtain CXR as well. Continue O2, Encourage mobility, Add I.S. ESBL EColi UTI +: Add Macrobid due to multiple allergies listed. Needs to be treated given significant UA changes with leukocytosis. Repeat labs in AM. Potential DC to home tomorrow if stable. <Stephanie Gaytan Last Filed: 02/15/17 16:47> Objective Vital signs: Temperature 97.3 F 02/15/17 15:06 Pulse Rate 91 02/15/17 15:31 Respiratory Rate 18 02/15/17 15:06 Blood Pressure 141/75 H 02/15/17 15:06 Pulse Oximetry 94 02/15/17 15:06 Height/Weight/BMI: Weight 156 kg Results - Labs CBC & Chem 7: 02/15/17 04:15 02/15/17 04:15 Assessment and Plan (1) Atrial fibrillation with RVR Current visit: Yes Status: Acute (2) Chest pain Current visit: Yes Status: Acute (3) Chronic respiratory failure Problem details: Chronic 2L home O2 Current visit: No Status: Chronic Assessment and Plan: I have independently evaluated and examined this patient. I reviewed the chart, the patient's history, and the [employer]/PA's documented findings as above. We discussed and formulated the assessment and plan as above with additions as below: Mrs. Rogers describes minor palpitations and anxiety about heart rate of 100 and oxygen saturations in the low 90s. Constipation has resolved with Senokot and she's having no nausea or vomiting. Weight is stable, patient is alert and cooperative Respirations are nonlabored with decreased airflow throughout but breath sounds are clear Irregular rhythm Telemetry reviewed-atrial flutter with rates often in the 100-120 range Additional dose of diltiazem CD 120 mg given today for total dose 360 mg daily; discussed with cardiology. Today's chest x-ray reviewed by myself-may be slight increased vascular markings but no significant change. Increase activity, up in chair today. At baseline patient transfers from bed to motorized wheelchair. Patient has medications bubble packed by [place] [facility]; if discharged tomorrow will need new prescriptions filled locally. Hospital Course Summary Disclaimer: The visit summary below is not to be considered part of the above Progress Note.
[2017-02-15] MEDS ORDERED: FUROSEMIDE 40 MG/4 ML INJECTION IVP ONE (13:51)
[2017-02-15] MEDS ORDERED: TRAMADOL 50 MG TABLET PO PRN (13:53)
[2017-02-15] MEDS: NITROFURANTOIN (MACROBID) 100 MG CAPSULE PO SCH ×2 (14:15→17:58)
--- NOTE | 2017-02-15 16:03 | Cardiology Progress Note ---
Subjective Principal diagnosis: Atrial Fibrillation with RVR <Preethi Loja R - 02/15/17 16 :14> Interval history: CC: AFIB w/RVR is OOB in her chair this afternoon. States she will be getting OOB more to "help the lungs". States her O2 sat <90% earlier today and that she received some lasix. She also states concern over her HR getting to 100. Feels that today it has occurred at times even at rest. Wanting to stay another today for observation with med changes. She denies any CP/pressure,palpitations, N/V, diaphoresis. Some SOA with exertion. <Preethi Loja R - 02/15/17 16:14> Exam Vital signs: Temperature 97.7 F 02/16/17 07:00 Pulse Rate 83 02/16/17 09:14 Respiratory Rate 16 02/16/17 09:14 Blood Pressure 135/67 02/16/17 09:14 Pulse Oximetry 98 02/16/17 09:14 <Siddharth Chavez - 02/18/17 16:08> Temperature 97.3 F 02/15/17 15:06 Pulse Rate 91 02/15/17 15:31 Respiratory Rate 18 02/15/17 15:06 Blood Pressure 141/75 H 02/15/17 15:06 Pulse Oximetry 94 02/15/17 15:06 <Preethi Loja R - 02/15/17 16:14> Narrative: 02/15/17 04:15 02/15/17 04:15 Laboratory Results - last 24 hr 02/14/17 02/14/17 02/15/17 16:57 21:03 04:15 WBC 11.8 H RBC 3.95 L Hgb 11.0 L Hct 35.5 L MCV 89.9 MCH 27.8 MCHC 31.0 RDW Std Deviation 53.4 H Plt Count 288 MPV 10.0 Immature Gran % (Auto) 0.5 Neut % (Auto) 74.8 H Lymph % (Auto) 15.7 L [place] % (Auto) 8.2 Eos % (Auto) 0.6 Baso % (Auto) 0.2 Neut # 8.8 H Lymph # 1.9 [place] # 1.0 H Eos # 0.1 Baso # 0.0 Abs Immat Gran (auto) 0.06 H Turbidity Sodium Potassium Chloride Carbon Dioxide Anion Gap BUN Creatinine GFR Calculation BUN/Creatinine Ratio Glucose Glucometer 168 158 Hemoglobin A1c Calculated Osmolality Calcium Magnesium Icterus Index Specimen Hemolysis 02/15/17 02/15/17 02/15/17 04:15 05:45 11:42 WBC RBC Hgb Hct MCV MCH MCHC RDW Std Deviation Plt Count MPV Immature Gran % (Auto) Neut % (Auto) Lymph % (Auto) [place] % (Auto) Eos % (Auto) Baso % (Auto) Neut # Lymph # [place] # Eos # Baso # Abs Immat Gran (auto) Turbidity < 20 Sodium 142 Potassium 4.4 Chloride 104 Carbon Dioxide 30 Anion Gap 8 BUN 35.0 H Creatinine 1.0 GFR Calculation 55 BUN/Creatinine Ratio 35 H Glucose 121 H Glucometer 134 176 Hemoglobin A1c 7.2 Calculated Osmolality 282 H Calcium 9.2 Magnesium 2.2 Icterus Index < 2 Specimen Hemolysis < 15 Home Medications Medication Instructions Recorded Confirmed Pantoprazole Sodium [Protonix] 40 mg PO ACB #0 01/25/16 02/13/17 Niacinamide [Niacin] 1,500 mg PO HS #0 05/13/16 02/13/17 Tizanidine HCl 4 mg PO HS MDD bid 01/01/17 02/13/17 CephALEXin [Keflex] 500 mg PO BID 02/13/17 02/13/17 Cholecalciferol (Vitamin D3) 3,000 unit PO HS 02/13/17 02/13/17 [Vitamin D3] DiphenhydrAMINE [Benadryl] 25 mg PO HS 02/13/17 02/13/17 Docusate Sodium [Colace] 100 mg PO HS 02/13/17 02/13/17 Gemfibrozil [Lopid] 600 mg PO HS 02/13/17 02/13/17 Hydrocodone/APAP 5/325 [[place] 1 tab PO Q4-6HPRN PRN 02/13/17 02/13/17 5/325] Hydrocortisone 2.5% Cream 1 applic RECTALLY TID PRN 02/13/17 02/13/17 [Anusol-Hc 2.5% Cream] Insulin Aspart [NovoLOG] 58 - 60 unit SQ TIDWM 02/13/17 02/13/17 Insulin Glargine [Lantus] 90 unit SQ HS 02/13/17 02/13/17 Levothyroxine Sodium 150 mg PO ACB 02/13/17 02/13/17 Lisinopril/Hctz 03/26.5 [Prinzide 1 tab PO DAILY 02/13/17 02/13/17 1012.5] Magnesium Oxide [Magnesium] 400 mg PO BID 02/13/17 02/13/17 Multivit,Calc,Mins/Iron/Folic 1 tab PO DAILY 02/13/17 02/13/17 [Women's Daily Caplet] PredniSONE [Deltasone] 40 mg PO WB 02/13/17 02/13/17 Rivaroxaban [Xarelto] 20 mg PO DAILY 02/13/17 02/13/17 Sucralfate [Carafate] 1 gm PO QID 02/13/17 02/13/17 Tizanidine HCl 4 mg PO BID PRN 02/13/17 02/13/17 Tramadol [Ultram] 50 mg PO BID PRN 02/13/17 02/13/17 Tramadol [Ultram] 50 mg PO HS 02/13/17 02/13/17 Vit C/E/Zn/Coppr/Lutein/Zeaxan 1 cap PO BID 02/13/17 02/13/17 [Preservision Areds 2 Softgel] Previous Rx's Medication Instructions Recorded Nitroglycerin [Nitrostat] 0.4 mg SL Q5MIN3 PRN #25 tablet 01/02/17 Sotalol [Betapace] 80 mg PO ACBID #60 tablet 01/02/17 Diltiazem HCl (Cardizem Cd) 240 mg PO DAILY [facility] Last Admin: 02/15/17 08:12 Dose: 240 mg Diltiazem HCl (Cardizem Cd) 120 mg PO DAILY [facility] Last Admin: 02/15/17 14:15 Dose: 120 mg Diphenhydramine HCl (Benadryl) 25 mg PO [facility] Last Admin: 02/14/17 21:35 Dose: 25 mg Gemfibrozil (Lopid) 600 mg PO HS [facility] Last Admin: 02/14/17 21:35 Dose: 600 mg Lisinopril/HCTZ (Prinzide 03/26.5) 1 tab PO DAILY [facility] Last Admin: 02/15/17 08:10 Dose: 1 tab Hydrocortisone (Anusol-Hc 2.5% Cream) 1 applic RECTALLY TID PRN Insulin Aspart (Novolog) 58 - 60 unit SQ TIDWM [facility] Last Admin: 02/15/17 12:34 Dose: 58 unit Insulin Glargine (Lantus) 90 unit SQ HS [facility] Last Admin: 02/14/17 21:36 Dose: 90 unit Levothyroxine Sodium (Synthroid) 150 mcg PO ACB [facility] Last Admin: 02/15/17 06:23 Dose: 150 mcg Magnesium Hydroxide (Mom) 30 ml PO DAILY PRN PRN Reason: Constipation Magnesium Oxide (Magox) 400 mg PO BID [facility] Last Admin: 02/15/17 08:10 Dose: 400 mg Morphine Sulfate (Morphine Sulfate Inj) 2 mg IVP Q3-4HR PRN PRN Reason: Chest pain Last Admin: 02/15/17 09:52 Dose: 2 mg Nitrofurantoin Macrocrystals (Macrobid) 100 mg PO BIDWM [facility] Stop: 02/22/17 13:44 Last Admin: 02/15/17 14:15 Dose: 100 mg Nitroglycerin (Nitrostat) 0.4 mg SL Q5MIN3 PRN PRN Reason: Chest pain Last Admin: 02/13/17 15:57 Dose: 0.4 mg Ondansetron HCl (Zofran) 4 mg IVP Q6H PRN PRN Reason: Nausea Pantoprazole Sodium (Protonix Tab) 40 mg PO ACB [facility] Last Admin: 02/15/17 06:23 Dose: 40 mg Polyethylene Glycol (Miralax) 17 gm PO DAILY [facility] Last Admin: 02/15/17 08:10 Dose: 17 gm Potassium Chloride (Micro-K) 10 meq PO O ONE Stop: 02/15/17 17:31 Prednisone (Deltasone) 40 mg PO WB [facility] Last Admin: 02/15/17 08:11 Dose: 40 mg Psyllium Hydrophilic Mucilloid (Metamucil) 1 packet PO DAILY [facility] Last Admin: 02/15/17 08:14 Dose: Not Given Rivaroxaban (Xarelto) 20 mg PO WS [facility] Last Admin: 02/14/17 17:19 Dose: 20 mg Senna/Docusate Sodium (Senna Plus Tablet) 2 tab PO BID [facility] Last Admin: 02/15/17 08:10 Dose: 2 tab Sodium Chloride (Iv Flush) 10 - 80 ml IVF PRN PRN PRN Reason: Flushing Last Admin: 02/15/17 14:15 Dose: 20 ml Sodium Chloride (Normal Saline) 500 ml IV PRN PRN Last Admin: 02/15/17 09:43 Dose: 500 ml Sucralfate (Carafate) 1 gm PO ACHS [facility] Last Admin: 02/15/17 10:46 Dose: 1 gm Tizanidine HCl (Zanaflex) 4 mg PO BID PRN Tizanidine HCl (Zanaflex) 4 mg PO HS [facility] Last Admin: 02/14/17 21:38 Dose: 4 mg Tramadol HCl (Ultram) 50 mg PO QID PRN PRN Reason: Pain <[place],Preethi 02/15/17 16:14> - Constitutional no acute distress, morbidly obese, cooperative [facility] 16:14 > - Routine HEENT Exam Head: Present: normocephalic <[facility],Preethi 02/15/17 16:14> Eye: Present: EOMI <[facility]Preethi 02/15/17 16:14> ENT: Present: mucous membranes moist <[facility],Preethi 02/15/17 16:14> - Routine Neck Exam Absent: JVD, carotid bruit, lymphadenopathy <[facility],Preethi 02/15/17 16:14> - Routine Respiratory Exam Present: dyspnea, decreased breath sounds. Absent: wheezes, crackles <[facility] 02/15/17 16:14> - Routine Cardiovascular Exam Present: no murmur, irregular rhythm. Absent: JVD <[facility],Preethi 02/15/17 16:14> - Routine Abdominal Exam Present: soft, normoactive bowel sounds, non tender <[facility] 02/15/17 16:14> - Routine Extremities Exam Present: edema (trace to 1+), pulses intact (+DP pulses palpable bilaterally) <[facility]02/15/17 16:14> - Routine Skin Exam Present: intact, dry, warm. Absent: erythema <[facility] 02/15/17 16:14> - Routine Neurological Exam Present: alert, oriented X3 <[facility]02/15/17 16:14> - Routine Psychiatric Exam Present: normal affect, normal thought process, cooperative <EctPreethi alcantara 02/15/17 16:14> - Urinary Catheter Management Straight Cath placed during this visit: no <Siddharth Chavez - 02/18/17 16:08> yes, but has since been removed by the nurse <EctPreethi alcantara 02/15/17 16:14> Insertion date: 02/13/17 <[facility] 02/15/17 16:14> Insertion time: 15:50 <[place],Preethi Sandoval 02/15/17 16:14> Removal date: 02/13/17 <[place],Preethi R 02/15/17 16:14> Removal time: 15:55 <[place],Preethi R 02/15/17 16:14> Progress Note-A&P (1) HTN (hypertension) Status: Chronic (2) Diabetes Status: Chronic (3) Hyperlipidemia Status: Chronic (4) Atrial fibrillation with RVR Status: Acute (5) Chest pain Status: Acute <Siddharth Chavez - 02/18/17 16:08> (1) Atrial fibrillation with RVR Status: Acute Assessment and plan: 02/14/2017: discussed and transitioned pt from Cardizem gtt to PO TID IR dosing. Will start 240mg ER tomorrow AM. Con't Xarelto for anticoagulation. Repeat ECG in AM.TSH 2.16, K+3.9, Mag 1.9. Planning outpt f/u for ablation if remains rate controlled. 02/15/2017: ECG today Afib 93, QT/QTc: 343/393. HR 80-10's, BP remains elvated with highest SBP 150's. Discussed with and agree with increasing Diltiazem ER to 360mg daily, started today. Will monitor overnight and in AM. Con't Xarelto. If remains stable and controlled rate and BP will plan on discharging with outpt f/ u for ablation. (2) HTN (hypertension) Status: Chronic Assessment and plan: 02/14/2017: Beginning to have some elevations in BP. Sotalol recently d/c'd. Will monitor BP with Diltiazem 240mg ER tomorrow. May need to increase meds. 02/15/2017: BP remains elevated with high SBP 150's. HR also up 90-100's. Increasing Diltiazem to 360mg today. Monitor VS closely. (3) Diabetes Status: Chronic Assessment and plan: TID WM novolog and HS Lantus. Attending managing. (4) Hyperlipidemia Status: Chronic Assessment and plan: Con't Lopid. No ASA d/t Xarelto. (5) Chest pain Status: Acute Assessment and plan: 02/14/2017: Troponin trend negative, ECG shows Afib with no ischemic changes. Resolved at this time, likely 2/2 afib. Con't medical tx. 02/15/2017: ECG today shows AFIB 93. Remains CP fress. Con't current medical management. <Preethi Loja 02/15/17 15:58> - Time Spent With Patient Total time spent is greater than 50% in coordination of care (as documented) at patient's floor/unit and/or counseling patient: <Siddharth Chavez 02/18/17 16:08> Total time spent is greater than 50% in coordination of care (as documented) at patient's floor/unit and/or counseling patient: <Preethi Loja 02/15/17 16:14> 25 - 35 minutes <Preethi Loja 02/15/17 16:14> - Attestation Attestation Narrative: Recommendation After examining the patient I agree with the above assessment. I am involved in the formulation of the patient's plan of care. <Siddharth Chavez - 02/18/17 16:08> Sepsis Assessment - Evaluation Sepsis screening result: No Definite Risk <Preethi Loaj 02/15/17 16:14> Hospital Course Summary Disclaimer: The visit summary below is not to be considered part of the above Progress Note. <Siddharth Chavez 02/18/17 16:08> The visit summary below is not to be considered part of the above Progress Note. <Preethi Loja 02/15/17 16:14> Hospital Course: 02/13/17-hospitalist Social placed to Dr. Chavez for his cardiac recommendations and treatment. Will monitor patient on Cardiac telemetry and obtain serial troponins 3. Continue with chronic oxygen, baseline 2 liters at home. Patient is chronically on Xarelto 20 milligrams daily for chronic anticoagulation and this will be continued. On Keflex prior to admission for unclear reason. 02/13/17 17:39 AFib RVR: Acute on chronic. Cardioverted 6 weeks ago. Plan is to control rate and refer for ablation as outpatient. Check tsh, mag. Stop Sotalol and start Metoprolol 50mg po BID. Continue Xarelto. Chest pain: Trend serial troponin. May need outpatient heart cath due to recurrent chest pain HTN: Continue home lisinopril/hctz Thank you for allowing us to participate in the care of this patient. 02/14/17 14:11-hospitalist Rate controlled with IV diltiazem this morning, discussed with cardiology and have begun conversion to oral diltiazem at 60 mg every 6 hours with plan to change to extended release Cardizem 240 mg in the morning. Continue Xarelto. Longer-term plans per Dr. Chavez and his team. Blood pressure is stable. Will move back out of the unit on diltiazem. Converted to inpatient status due to need for IV diltiazem and continued monitoring to assure stable rhythm while medications are modified. Early urine culture with gram-negative marie, symptoms improving with ceftriaxone. Previously treated with Keflex. Blood sugar control adequate, Accu-Cheks switched to fasting and two-hour postprandial. Continue supplemental oxygen for chronic respiratory failure as per home regimen. TSH within normal range, troponins unremarkable. <Preethi Loja R - 02/15/17 16:14>
[2017-02-15] MEDS: RIVAROXABAN 20 MG TABLET PO SCH (17:58)
[2017-02-15] MEDS: DiphenhydrAMINE 25 MG CAPSULE PO SCH (20:11)
[2017-02-15] MEDS: INSULIN GLARGINE 100unit/ml INJECTION SQ SCH (21:48)
[2017-02-15] MEDS: TIZANIDINE 4 MG PO SCH (21:48)
[2017-02-15] MEDS: GEMFIBROZIL 600 MG TABLET PO SCH (21:48)
[2017-02-16] MEDS: PANTOPRAZOLE 40 MG TABLET PO SCH (05:54)
[2017-02-16] MEDS: LEVOTHYROXINE 150 MCG TABLET PO SCH (05:54)
[2017-02-16] MEDS: SUCRALFATE 1 GM TABLET PO SCH ×2 (05:54→11:13)
[2017-02-16 07:32] VITALS: TEMP 97.7
[2017-02-16] MEDS: INSULIN ASPART 100unit/ml INJECTION SQ SCH ×2 (07:57→11:56)
[2017-02-16] MEDS: PREDNISONE 20 MG PO SCH (07:58)
[2017-02-16] MEDS: NITROFURANTOIN (MACROBID) 100 MG CAPSULE PO SCH (07:58)
[2017-02-16] MEDS: PSYLLIUM PACKET PO SCH (08:00)
[2017-02-16] MEDS: LISINOPRIL/HCTZ 10/12.5 MG TABLET PO SCH (08:00)
[2017-02-16] MEDS: MAGNESIUM OXIDE 400 MG TABLET PO SCH (08:00)
[2017-02-16] MEDS: SENNA + DOCUSATE TABLET PO SCH (08:00)
[2017-02-16] MEDS: POLYETHYL GLYCOL 3350 17gm PACKET PO SCH (08:00)
[2017-02-16] MEDS ORDERED: DiltiaZEM CD 360 MG CAPSULE PO SCH (09:00)
[2017-02-16] MEDS: MORPHINE SULFATE 2 MG SYRINGE IVP PRN (09:10)
[2017-02-16] MEDS: SALINE FLUSH 10ml SYRINGE IVF PRN (09:11)
[2017-02-16 09:15] VITALS: BP 135/67; PULSE 83; RESP 16; O2SAT 98
--- NOTE | 2017-02-16 11:03 | Progress Note ---
Progress Note: Mrs. Rogers reports having some chest discomfort this morning in the substernal area and left shoulder. She's had similar discomfort for months and has noted that discomfort is improved when she sits up. At home she generally takes tramadol for the pain. Pain lasts for prolonged periods of time and is not associated with nausea or dyspnea and has not improved with addition of Carafate to her medical regimen. EKG was obtained this morning and did not reveal acute changes. She converted to sinus rhythm yesterday and has remained in sinus overnight. She denied nausea this morning and reports that Senokot is working well. Exam: Blood pressure 135/67, afebrile, heart rate 83, oxygen saturation 98% on 2 L supplemental oxygen NAD, alert Respirations nonlabored, diminished airflow throughout, anterior breath sounds clear Regular rhythm, managed heart tones, S1 and S2 No peripheral edema present Abdomen obese, soft, nontender Data: White count 10.7, hemoglobin 10.2, electrolytes unremarkable with BUN 44 and creatinine 1.1 EKG reviewed by myself-sinus rhythm with diffuse T-wave flattening/nonspecific ST abnormality Assessment: Atrial fibrillation with RVR; converted to sinus rhythm 02/15 Chest pain UTI,ESBL E.Coli Leukocytosis Diabetes HTN (hypertension) Hyperlipidemia Hypothyroidism Osteoarthritis Chronic respiratory failure Chronically on 2 liters of oxygen by nasal cannula Oxygen dependent Fibromyalgia Temporal arteritis Chronic steroid use Morbid obesity with BMI 69.3 Plan: Converted to sinus rhythm, rate stable. On baseline O2. Stable for discharge. Chest pain is chronic and likely noncardiac based on description; discussed with cardiology. To follow up with Dr. Chavez in 1-2 weeks for reassessment and to determine if cardiac ablation will be needed. Please refer to discharge summary.
--- NOTE | 2017-02-16 11:23 | Discharge Instructions ---
Discharge Plan - Med Rec/Dispo Referrals/Follow Up: Siddharth Chavez MD [Physician] - (1-2 weeks) Nikolas Gann MD [Family Provider] - (1-3 days with follow-up lab work) Prescriptions: New DiltiaZEM CD [Cardizem Cd] 360 mg PO DAILY #30 capsule Nitrofurantoin. [Macrobid] 100 mg PO BIDWM #7 capsule Senna + Docusate [Senna Plus Tablet] 1 - 2 tab PO BID #100 tablet Polyethylene Glycol 3350 [Miralax] 17 gm PO DAILY #1 powd.pack Continue Pantoprazole Sodium [Protonix] 40 mg PO ACB #0 Niacinamide [Niacin] 1,500 mg PO HS #0 Vit C/E/Zn/Coppr/Lutein/Zeaxan [Preservision Areds 2 Softgel] 1 cap PO BID Tramadol [Ultram] 50 mg PO BID PRN PRN Reason: Pain Tramadol [Ultram] 50 mg PO HS Magnesium Oxide [Magnesium] 400 mg PO BID Hydrocortisone 2.5% Cream [Anusol-Hc 2.5% Cream] 1 applic RECTALLY TID PRN PRN Reason: Prn Orders Insulin Glargine [Lantus] 90 unit SQ HS PredniSONE [Deltasone] 40 mg PO WB Hydrocodone/APAP 5/325 [[place] 5/325] 1 tab PO Q4-6HPRN PRN PRN Reason: Pain Cholecalciferol (Vitamin D3) [Vitamin D3] 3,000 unit PO HS CephALEXin [Keflex] 500 mg PO BID Sucralfate [Carafate] 1 gm PO QID Levothyroxine Sodium 150 mg PO ACB Tizanidine HCl 4 mg PO BID PRN PRN Reason: Prn Orders DiphenhydrAMINE [Benadryl] 25 mg PO HS Tizanidine HCl 4 mg PO HS MDD bid Nitroglycerin [Nitrostat] 0.4 mg SL Q5MIN3 PRN #25 tablet PRN Reason: Chest Pain Rivaroxaban [Xarelto] 20 mg PO DAILY Insulin Aspart [NovoLOG] 58 - 60 unit SQ TIDWM Multivit,Calc,Mins/Iron/Folic [Women's Daily Caplet] 1 tab PO DAILY Gemfibrozil [Lopid] 600 mg PO HS Lisinopril/Hctz 03/26.5 [Prinzide 03/26.] 1 tab PO DAILY Discontinued Sotalol [Betapace] 80 mg PO ACBID #60 tablet Docusate Sodium [Colace] 100 mg PO HS Discharge Instructions/Outpatient Orders: Final Provider Discharge Instructions Location: Determined By Patient - Disposition 01 Discharged Home, Self-Care
--- NOTE | 2017-02-16 11:29 | Discharge Instructions ---
Discharge Plan - Med Rec/Dispo Referrals/Follow Up: iSddharth Chavez MD [Physician] - (1-2 weeks) Nikolas Gann MD [Family Provider] - (1-3 days with follow-up lab work) Prescriptions: New DiltiaZEM CD [Cardizem Cd] 360 mg PO DAILY #30 capsule Nitrofurantoin. [Macrobid] 100 mg PO BIDWM #7 capsule Senna + Docusate [Senna Plus Tablet] 1 - 2 tab PO BID #100 tablet Polyethylene Glycol 3350 [Miralax] 17 gm PO DAILY #1 powd.pack Continue Pantoprazole Sodium [Protonix] 40 mg PO ACB #0 Niacinamide [Niacin] 1,500 mg PO HS #0 Vit C/E/Zn/Coppr/Lutein/Zeaxan [Preservision Areds 2 Softgel] 1 cap PO BID Tramadol [Ultram] 50 mg PO BID PRN PRN Reason: Pain Tramadol [Ultram] 50 mg PO HS Magnesium Oxide [Magnesium] 400 mg PO BID Hydrocortisone 2.5% Cream [Anusol-Hc 2.5% Cream] 1 applic RECTALLY TID PRN PRN Reason: Prn Orders Insulin Glargine [Lantus] 90 unit SQ HS PredniSONE [Deltasone] 40 mg PO WB Hydrocodone/APAP 5/325 [[place] 5/325] 1 tab PO Q4-6HPRN PRN PRN Reason: Pain Cholecalciferol (Vitamin D3) [Vitamin D3] 3,000 unit PO HS CephALEXin [Keflex] 500 mg PO BID Sucralfate [Carafate] 1 gm PO QID Levothyroxine Sodium 150 mg PO ACB Tizanidine HCl 4 mg PO BID PRN PRN Reason: Prn Orders DiphenhydrAMINE [Benadryl] 25 mg PO HS Tizanidine HCl 4 mg PO HS MDD bid Nitroglycerin [Nitrostat] 0.4 mg SL Q5MIN3 PRN #25 tablet PRN Reason: Chest Pain Rivaroxaban [Xarelto] 20 mg PO DAILY Insulin Aspart [NovoLOG] 58 - 60 unit SQ TIDWM Multivit,Calc,Mins/Iron/Folic [Women's Daily Caplet] 1 tab PO DAILY Gemfibrozil [Lopid] 600 mg PO HS Lisinopril/Hctz 03/26.5 [Prinzide 03/26.] 1 tab PO DAILY Discontinued Sotalol [Betapace] 80 mg PO ACBID #60 tablet Docusate Sodium [Colace] 100 mg PO HS Discharge Instructions/Outpatient Orders: Final Provider Discharge Instructions Location: Determined By Patient - Disposition 01 Discharged Home, Self-Care
--- NOTE | 2017-02-16 13:15 | Cardiology Progress Note ---
Subjective Principal diagnosis: Atrial Fibrillation with RVR <Preethi Loja R - 02/16/17 13 :15> Interval history: CC: AFIB w/RVR Ms. Rogers is laying in bed this Am. Was notified by RN earlier this AM that she was still requesting IV morphine for her chest pain. Discussed with and again with patient and agree pain is non-cardiac and is more pleuritic. Ms. Rogers agrees that her regular PRN meds relieve her pain and it is not worsening. She denies any increased SOA, N/V, diaphoresis. Was also discovered this AM that she had converted to NSR sometime yesterday. <Preethi Loja R - 02/16/17 20:39> Exam Vital signs: Temperature 97.7 F 02/16/17 07:00 Pulse Rate 83 02/16/17 09:14 Respiratory Rate 16 02/16/17 09:14 Blood Pressure 135/67 02/16/17 09:14 Pulse Oximetry 98 02/16/17 09:14 <Siddharth Chavez - 02/18/17 16:09> Temperature 97.7 F 02/16/17 07:00 Pulse Rate 83 02/16/17 09:14 Respiratory Rate 16 02/16/17 09:14 Blood Pressure 135/67 02/16/17 09:14 Pulse Oximetry 98 02/16/17 09:14 Intake & Output 02/14/17 02/15/17 02/16/17 02/17/17 06:59 06:59 06:59 06:59 Intake Total 2137.167 / 2137.167 1068.333 / 8168.349 9080 / 1000 240 / 240 Output Total 625 / 625 650 / 650 Balance 1512.167 / 0309.504 2110.333 / 1068.333 350 / 350 240 / 240 Weight 155.7 kg 157.8 kg 156 kg 155.5 kg Home Medications Medication Instructions Recorded Confirmed Pantoprazole Sodium [Protonix] 40 mg PO ACB #0 01/25/16 02/13/17 Niacinamide [Niacin] 1,500 mg PO HS #0 05/13/16 02/13/17 Tizanidine HCl 4 mg PO HS MDD bid 01/01/17 02/13/17 CephALEXin [Keflex] 500 mg PO BID 02/13/17 02/13/17 Cholecalciferol (Vitamin D3) 3,000 unit PO HS 02/13/17 02/13/17 [Vitamin D3] DiphenhydrAMINE [Benadryl] 25 mg PO HS 02/13/17 02/13/17 Gemfibrozil [Lopid] 600 mg PO HS 02/13/17 02/13/17 Hydrocodone/APAP 5/325 [[place] 1 tab PO Q4-6HPRN PRN 02/13/17 02/13/17 5/325] Hydrocortisone 2.5% Cream 1 applic RECTALLY TID PRN 02/13/17 02/13/17 [Anusol-Hc 2.5% Cream] Insulin Aspart [NovoLOG] 58 - 60 unit SQ TIDWM 02/13/17 02/13/17 Insulin Glargine [Lantus] 90 unit SQ HS 02/13/17 02/13/17 Levothyroxine Sodium 150 mg PO ACB 02/13/17 02/13/17 Lisinopril/Hctz 10/12.5 [Prinzide 1 tab PO DAILY 02/13/17 02/13/17 1012.5] Magnesium Oxide [Magnesium] 400 mg PO BID 02/13/17 02/13/17 Multivit,Calc,Mins/Iron/Folic 1 tab PO DAILY 02/13/17 02/13/17 [Women's Daily Caplet] PredniSONE [Deltasone] 40 mg PO WB 02/13/17 02/13/17 Rivaroxaban [Xarelto] 20 mg PO DAILY 02/13/17 02/13/17 Sucralfate [Carafate] 1 gm PO QID 02/13/17 02/13/17 Tizanidine HCl 4 mg PO BID PRN 02/13/17 02/13/17 Tramadol [Ultram] 50 mg PO BID PRN 02/13/17 02/13/17 Tramadol [Ultram] 50 mg PO HS 02/13/17 02/13/17 Vit C/E/Zn/Coppr/Lutein/Zeaxan 1 cap PO BID 02/13/17 02/13/17 [Preservision Areds 2 Softgel] Previous Rx's Medication Instructions Recorded Nitroglycerin [Nitrostat] 0.4 mg SL Q5MIN3 PRN #25 tablet 01/02/17 DiltiaZEM CD [Cardizem Cd] 360 mg PO DAILY #30 capsule 02/16/17 Nitrofurantoin. [Macrobid] 100 mg PO BIDWM #7 capsule 02/16/17 Polyethylene Glycol 3350 [Miralax] 17 gm PO DAILY #1 powd.pack 02/16/17 Senna + Docusate [Senna Plus 1 - 2 tab PO BID #100 tablet 02/16/17 Tablet] Generic Name Dose Route Start Last Admin Trade Name Freq PRN Reason Stop Dose Admin Diltiazem HCl 360 mg 02/16/17 09:00 02/16/17 08:01 Cardizem Cd PO 360 mg DAILY CARMEL Administration Diphenhydramine HCl 25 mg 02/13/17 21:00 02/15/17 20:11 Benadryl PO 25 mg HS CARMEL Administration Gemfibrozil 600 mg 02/13/17 21:00 02/15/17 21:48 Lopid PO 600 mg HS CARMEL Administration Lisinopril/HCTZ 1 tab 02/14/17 09:00 02/16/17 08:00 Prinzide 10/12.5 PO 1 tab DAILY CARMEL Administration Hydrocortisone 1 applic 02/13/17 17:24 Anusol-Hc 2.5% Cream RECTALLY TID PRN Insulin Aspart 58 - 60 unit 02/13/17 17:30 02/16/17 11:56 Novolog SQ 60 unit TIDWM CARMEL Administration Insulin Glargine 90 unit 02/13/17 21:00 02/15/17 21:48 Lantus SQ 90 unit HS CARMEL Administration Levothyroxine Sodium 150 mcg 02/15/17 06:30 02/16/17 05:54 Synthroid PO 150 mcg ACB CARMEL Administration Magnesium Hydroxide 30 ml 02/14/17 13:56 Mom PO DAILY PRN Constipation Magnesium Oxide 400 mg 02/13/17 21:00 02/16/17 08:00 Magox PO 400 mg BID CARMEL Administration Morphine Sulfate 2 mg 02/13/17 20:59 02/16/17 09:10 Morphine Sulfate Inj IVP 2 mg Q3-4HR PRN Administration Chest pain Nitrofurantoin Macrocrystals 100 mg 02/15/17 13:45 02/16/17 07:58 Macrobid PO 02/22/17 13:44 100 mg BIDWM CARMEL Administration Nitroglycerin 0.4 mg 02/13/17 13:44 02/13/17 15:57 Nitrostat SL 0.4 mg Q5MIN3 PRN Administration Chest pain Ondansetron HCl 4 mg 02/13/17 20:02 Zofran IVP Q6H PRN Nausea Pantoprazole Sodium 40 mg 02/14/17 06:30 02/16/17 05:54 Protonix Tab PO 40 mg ACB CARMEL Administration Polyethylene Glycol 17 gm 02/14/17 09:43 02/16/17 08:00 Miralax PO 17 gm DAILY CARMEL Administration Prednisone 40 mg 02/14/17 08:00 02/16/17 07:58 Deltasone PO 40 mg WB CARMEL Administration Psyllium Hydrophilic Mucilloid 1 packet 02/14/17 09:45 02/16/17 08:00 Metamucil PO Not Given DAILY CARMEL Rivaroxaban 20 mg 02/14/17 17:30 02/15/17 17:58 Xarelto PO 20 mg WS CARMEL Administration Senna/Docusate Sodium 2 tab 02/14/17 21:00 02/16/17 08:00 Senna Plus Tablet PO 2 tab BID CARMEL Administration Sodium Chloride 10 - 80 ml 02/13/17 13:44 02/16/17 09:11 Iv Flush IVF 20 ml PRN PRN Administration Flushing Sodium Chloride 500 ml 02/15/17 08:52 02/15/17 09:43 Normal Saline IV 500 ml PRN PRN Administration Sucralfate 1 gm 02/14/17 11:30 02/16/17 11:13 Carafate PO 1 gm ACHS CARMEL Administration Tizanidine HCl 4 mg 02/13/17 21:00 Zanaflex PO BID PRN Tizanidine HCl 4 mg 02/13/17 21:00 02/15/17 21:48 Zanaflex PO 4 mg HS CARMEL Administration Tramadol HCl 50 mg 02/15/17 13:53 02/15/17 21:57 Ultram PO 50 mg QID PRN Administration Pain Discontinued Medications Generic Name Dose Route Start Last Admin Trade Name Freq PRN Reason Stop Dose Admin Diltiazem HCl 20 mg 02/13/17 13:57 02/13/17 14:10 Cardizem IVP 02/13/17 13:58 20 mg O ONE Administration Diltiazem HCl 120 mg 02/13/17 17:30 02/13/17 18:22 Cardizem Cd PO 120 mg DAILY CARMEL Administration Diltiazem HCl 60 mg 02/14/17 10:30 02/14/17 21:36 Cardizem Ir PO 02/15/17 05:00 60 mg ACHS CARMEL Administration Diltiazem HCl 5 mg 02/14/17 11:10 02/14/17 11:33 Cardizem IVP 02/14/17 11:11 5 mg O ONE Administration Diltiazem HCl 240 mg 02/15/17 09:00 02/15/17 08:12 Cardizem Cd PO 240 mg DAILY CARMEL Administration Diltiazem HCl 120 mg 02/15/17 13:45 02/15/17 14:15 Cardizem Cd PO 120 mg DAILY CARMEL Administration Docusate Sodium 100 mg 02/13/17 21:00 02/13/17 22:44 Colace PO 100 mg HS CARMEL Administration Enoxaparin Sodium 40 mg 02/13/17 20:02 02/13/17 22:37 Lovenox SQ 40 mg DAILY CARMEL Administration Furosemide 40 mg 02/15/17 13:51 02/15/17 14:15 Lasix IVP 02/15/17 13:52 40 mg ONCE ONE Administration Sodium Chloride 1,000 mls @ 100 mls/hr 02/13/17 14:30 02/14/17 14:35 Normal Saline IV Not Given .Q10H CARMEL Ceftriaxone Sodium 1 g/ Sodium 100 mls @ 200 mls/hr 02/13/17 20:15 02/15/17 10:45 Chloride IV Infused DAILY CARMEL Infusion Diltiazem HCl 125 mg/ Sodium 125 mls @ 10 mls/hr 02/13/17 21:00 02/14/17 06: 00 Chloride IV 10 mls/hr PRN CARMEL Infusion Protocol Levothyroxine Sodium 150,000 mcg 02/14/17 06:30 02/14/17 06:36 Synthroid PO 150 mcg ACB CARMEL Administration Metoprolol Tartrate 50 mg 02/13/17 17:45 02/13/17 18:22 Lopressor PO 50 mg BIDWM CARMEL Administration Metoprolol Tartrate 50 mg 02/15/17 09:00 Lopressor PO BIDWM CARMEL Metoprolol Tartrate 25 mg 02/15/17 09:00 Lopressor PO BIDWM CARMEL Morphine Sulfate 2 mg 02/13/17 16:16 02/13/17 16:33 Morphine Sulfate Inj IVP 02/13/17 16:17 2 mg O ONE Administration Ondansetron HCl 4 mg 02/13/17 16:28 02/13/17 16:32 Zofran IV 02/13/17 16:29 4 mg O ONE Administration Pharmacy Profile Note 30 ml 02/13/17 13:58 02/13/17 14:09 /Maalox/Lidocaine Soln PO 02/13/17 13:59 30 ml O ONE Administration Potassium Chloride 10 meq 02/15/17 17:30 02/15/17 17:58 Micro-K PO 02/15/17 17:31 10 meq O ONE Administration Sucralfate 1 gm 02/13/17 21:00 02/14/17 06:37 Carafate PO 1 gm QID CARMEL Administration Tramadol HCl 50 mg 02/13/17 17:24 Ultram PO BID PRN Pain Trimethoprim/Sulfamethoxazole 1 tab 02/15/17 10:00 02/15/17 10:45 Bactrim Ds PO 1 tab BID CARMEL Administration <[place],Preethi R - 02/16/17 20:39> Narrative: Laboratory Results - last 24 hr 02/15/17 02/15/17 02/16/17 17:14 21:14 04:23 WBC 10.7 RBC 3.66 L Hgb 10.2 L Hct 33.0 L MCV 90.2 MCH 27.9 MCHC 30.9 L RDW Std Deviation 53.1 H Plt Count 275 MPV 9.9 Immature Gran % (Auto) 0.4 Neut % (Auto) 72.4 H Lymph % (Auto) 17.9 L [place] % (Auto) 8.7 Eos % (Auto) 0.4 Baso % (Auto) 0.2 Neut # 7.7 Lymph # 1.9 [place] # 0.9 H Eos # 0.0 Baso # 0.0 Abs Immat Gran (auto) 0.04 H Turbidity Sodium Potassium Chloride Carbon Dioxide Anion Gap BUN Creatinine GFR Calculation BUN/Creatinine Ratio Glucose Glucometer 253 327 Calculated Osmolality Calcium Phosphorus Magnesium Icterus Index Albumin Specimen Hemolysis 02/16/17 02/16/1702/16/17 04:23 06:26 11:01 WBC RBC Hgb Hct MCV MCH MCHC RDW Std Deviation Plt Count MPV Immature Gran % (Auto) Neut % (Auto) Lymph % (Auto) [place] % (Auto) Eos % (Auto) Baso % (Auto) Neut # Lymph # [place] # Eos # Baso # Abs Immat Gran (auto) Turbidity < 20 Sodium 140 Potassium 4.6 Chloride 101 Carbon Dioxide 32 H Anion Gap 7 BUN 44.0 H Creatinine 1.1 GFR Calculation 49 BUN/Creatinine Ratio 40 H Glucose 94 Glucometer 105 287 Calculated Osmolality 280 Calcium 9.7 Phosphorus 4.5 Magnesium 2.2 Icterus Index < 2 Albumin 3.6 Specimen Hemolysis < 15 [facility]39> - Constitutional no acute distress, morbidly obese, cooperative <[facility]/16/[facility] 20:39 > - Routine HEENT Exam Head: Present: normocephalic <[facility]/16[facility] 20:39> Eye: Present: EOMI <[facility],02/16/17 20:39> ENT: Present: mucous membranes moist <[facility]/16[facility] 20:39> - Routine Neck Exam Absent: JVD, carotid bruit, lymphadenopathy <[facility],Preethi 02/16/17 20:39> - Routine Respiratory Exam Present: dyspnea (with exertion), decreased breath sounds. Absent: rhonchi, wheezes <[facility] 02/16/17 20:42> - Routine Cardiovascular Exam Present: RRR. Absent: no murmur, gallop, rubs, JVD [facility] 02/16/17 20:42> - Routine Abdominal Exam Present: soft, normoactive bowel sounds, non tender [facility]/16[facility]17 20[facility]42> - Routine Extremities Exam Present: edema (trace to 1+ BLE), pulses intact (+DP palpable bilaterally) < [facility] 02/16/17 20:49> - Routine Skin Exam Present: intact, dry, warm. Absent: erythema, rash <[facility] 02/16/17 20:49> - Routine Neurological Exam Present: alert, oriented X3 <Preethi Loja 02/16/17 20:49> - Routine Psychiatric Exam Present: normal affect, cooperative <[facility] R 02/16/17 20:49> - Urinary Catheter Management Straight Cath placed during this visit: no <Siddharth Chavez - 02/18/17 16:09> yes, but has since been removed by the nurse <[facility]i alcantara R 02/16/17 20:49> Insertion date: 02/13/17 <[facility] R 02/16/17 13:15> Insertion time: 15:50 <[place],Preethi R 02/16/17 13:15> Removal date: 02/13/17 <[facility] R 02/16/17 13:15> Removal time: 15:55 <[place],Preethi R 02/16/17 13:15> Progress Note-A&P (1) HTN (hypertension) Status: Chronic (2) Diabetes Status: Chronic (3) Hyperlipidemia Status: Chronic (4) Atrial fibrillation with RVR Status: Acute (5) Chest pain Status: Acute <Siddharth Chavez - 02/18/17 16:09> (1) Atrial fibrillation with RVR Status: Acute Assessment and plan: 02/14/2017: discussed and transitioned pt from Cardizem gtt to PO TID IR dosing. Will start 240mg ER tomorrow AM. Con't Xarelto for anticoagulation. Repeat ECG in AM.TSH 2.16, K+3.9, Mag 1.9. Planning outpt f/u for ablation if remains rate controlled. 02/15/2017: ECG today Afib 93, QT/QTc: 343/393. HR 80-10's, BP remains elvated with highest SBP 150's. Discussed with and agree with increasing Diltiazem ER to 360mg daily, started today. Will monitor overnight and in AM. Con't Xarelto. If remains stable and controlled rate and BP will plan on discharging with outpt f/ u for ablation. 02/16/2017: Converted to NSR sometime yesterday. Remains NSR with HR 70-90's today. Con't current Cardizem 360mg daily & Xarelto. F/u 1-[address] Chavez. (2) HTN (hypertension) Status: Chronic Assessment and plan: 02/14/2017: Beginning to have some elevations in BP. Sotalol recently d/c'd. Will monitor BP with Diltiazem 240mg ER tomorrow. May need to increase meds. 02/15/2017: BP remains elevated with high SBP 150's. HR also up 90-100's. Increasing Diltiazem to 360mg today. Monitor VS closely. 02/16/2017: BP and HR improved today. Will d/c on Cardizem 360mg daily. F/u in 1-2 weeks with . (3) Diabetes Status: Chronic Assessment and plan: TID WM novolog and HS Lantus. Attending managing. (4) Hyperlipidemia Status: Chronic Assessment and plan: Con't Lopid. No ASA d/t Xarelto. (5) Chest pain Status: Acute Assessment and plan: 02/14/2017: Troponin trend negative, ECG shows Afib with no ischemic changes. Resolved at this time, likely 2/2 afib. Con't medical tx. 02/15/2017: ECG today shows AFIB 93. Remains CP fress. Con't current medical management. 02/16/2017: D/c home on same meds including PRN's. NSR, HR 80-90's. F/u with in 1 -2 weeks. <Preethi Loja 02/16/17 20:42> - Time Spent With Patient Total time spent is greater than 50% in coordination of care (as documented) at patient's floor/unit and/or counseling patient: <Siddharth Chavez - 02/18/17 16:09> Total time spent is greater than 50% in coordination of care (as documented) at patient's floor/unit and/or counseling patient: <Preethi Loja 02/16/17 13:15> less than 15 minutes <Preethi Loja 02/16/17 20:49> - Attestation Attestation Narrative: Recommendation After examining the patient I agree with the above assessment. I am involved in the formulation of the patient's plan of care. <Siddharth Chavez - 02/18/17 16:09> Sepsis Assessment - Evaluation Sepsis screening result: No Definite Risk <Preethi Loja R - 02/16/17 13:15> Hospital Course Summary Disclaimer: The visit summary below is not to be considered part of the above Progress Note. <Siddharth Chavez - 02/18/17 16:09> The visit summary below is not to be considered part of the above Progress Note. <Preethi Loja R - 02/16/17 13:15> Hospital Course: 02/13/17-hospitalist Social placed to Dr. Chavez for his cardiac recommendations and treatment. Will monitor patient on Cardiac telemetry and obtain serial troponins 3. Continue with chronic oxygen, baseline 2 liters at home. Patient is chronically on Xarelto 20 milligrams daily for chronic anticoagulation and this will be continued. On Keflex prior to admission for unclear reason. 02/13/17 17:39 AFib RVR: Acute on chronic. Cardioverted 6 weeks ago. Plan is to control rate and refer for ablation as outpatient. Check tsh, mag. Stop Sotalol and start Metoprolol 50mg po BID. Continue Xarelto. Chest pain: Trend serial troponin. May need outpatient heart cath due to recurrent chest pain HTN: Continue home lisinopril/hctz Thank you for allowing us to participate in the care of this patient. 02/14/17 14:11-hospitalist Rate controlled with IV diltiazem this morning, discussed with cardiology and have begun conversion to oral diltiazem at 60 mg every 6 hours with plan to change to extended release Cardizem 240 mg in the morning. Continue Xarelto. Longer-term plans per Dr. Chavez and his team. Blood pressure is stable. Will move back out of the unit on diltiazem. Converted to inpatient status due to need for IV diltiazem and continued monitoring to assure stable rhythm while medications are modified. Early urine culture with gram-negative marie, symptoms improving with ceftriaxone. Previously treated with Keflex. Blood sugar control adequate, Accu-Cheks switched to fasting and two-hour postprandial. Continue supplemental oxygen for chronic respiratory failure as per home regimen. TSH within normal range, troponins unremarkable. <Preethi Loja Jaime - 02/16/17 13:15>
--- NOTE | 2017-02-16 17:26 | Discharge Summary ---
Discharge Information Date of admission: 02/14/17 10:40 Anticipated date of discharge: 02/16/17 Attending Physician: Stephanie Gaytan MD Primary care physician: Nikolas Gann MD Consults: Siddharth Chavez M.D. - Laboratory Labs: On admission 02/13/17 white count was 13.6 with unremarkable differential, hemoglobin 11.4, platelet count 294,000. Sodium 146, BUN 30, creatinine 0.9, and proBNP 203. TSH 2.16 on 02/13/17 A1c 7.2 on 02/15/17 02/16/17 04:23 02/16/17 04:23 - Microbiology Urine culture 02/13/17 > 100,000 colonies Escherichia coli ESBL positive, resistant to Augmentin, ampicillin, cefazolin, ceftriaxone. - Radiology Radiology: Chest x-ray on 02/13/17 demonstrated no acute cardiopulmonary disease; follow-up film on 02/15/17 was unchanged. History of Present Illness HPI: Juliann is 71 year female who is under the time the primary care of Dr. Gann who is checked out to the hospitalist services for the weekend. Patient also is under the cardiology care of Dr. Chavez. Is a known history of atrial fibrillation, RVR and had underwent a cardioversion in December 2016. She feels that since that time she has been in sinus rhythm. Today at 1300 she started having an onset of substernal chest pain that was somewhat burning in nature. She states that she dozed off for a nap and when upon awaking noticed a TV remote sitting on her chest "fluttering" and she knew that she was in atrial fibrillation. She states that she has been under a lot of increased stress recently. Upon furhter evaluation in the Emergency room labs, EKG and chest xray were obtained. WBC count was found to be slightly elevated at 10.6, however , this could be elevated secondary to chronic prednisone use. Hemoglobin was stable at 11.4, hematocrit 35.7, platelet count 294. Sodium 146, potassium 3.6, BUN 30, creatinine 0.9. Initial troponin 0.013. On arrival, patient was found to be in atrial fibrillation with RVR 115-120. She was given Cardizem 20 milligrams IV, Zofran, morphine and a GI cocktail. Nitroglycerin 3 was also given. She remains in atrial fibrillation, however, rate has been better controlled. Will services were contacted and accepted patient for outpatient admission for further evaluation and treatment and consultation with Dr. Chavez She does request to be a full code Hospital Course This is a general summary of the patient's hospital course. For more details refer to the complete medical record. Hospital course: Assessment: Atrial fibrillation with RVR; converted to sinus rhythm 02/15 Chest pain UTI,ESBL E.Coli Leukocytosis Diabetes HTN (hypertension) Hyperlipidemia Hypothyroidism Osteoarthritis Chronic respiratory failure Chronically on 2 liters of oxygen by nasal cannula Oxygen dependent Fibromyalgia Temporal arteritis Chronic steroid use Morbid obesity with BMI 69.3 Hospital course: Mrs. Rogers was admitted with atrial fibrillation and rapid ventricular response. She previously been cardioverted 6 weeks ago and started on sotalol. Dr. Chavez was consulted and the patient was initially managed by discontinuation of sotalol, initiation of metoprolol for rate control with plans for ablation as an outpatient. However ventricular rate was not controlled with metoprolol and the patient required initiation of a diltiazem drip and first night of admission which was continued until midday 02/14 when she was converted to oral diltiazem 60 mg 4 times daily and subsequently diltiazem ER 240 mg daily. She remained in atrial fibrillation with this regimen with heart rates around the 100 prompting increase in diltiazem dose to 360 mg daily. The patient spontaneously converted back to sinus rhythm on 02/15 and remained in sinus through discharge on 02/16. Xarelto was continued for anticoagulation throughout the hospitalization and she'll follow up with Dr. Chavez in 1-2 weeks to reassess needs to consider additional interventions. Serial troponins were obtained due to complaints of chest pain on admission ( subsequently learned to be a chronic symptom) and were unremarkable. Supplemental oxygen was continued at 2 L per nasal cannula throughout the hospitalization as is patient's baseline. The patient was on cephalexin on admission-initially assumed her UTI but later learned to be for chronic skin disease. During the hospitalization the patient was found to have ESBL-positive Escherichia coli UTI. Due to multiple drug allergies combined with antibiotic resistance pattern of the Escherichia coli limited options were available for treatment and patient was discharged on Macrobid for total 5 day course of treatment. Patient complains constipation and was converted from Colace to senna plus with reported improvement in bowel function. Stable for discharge on 02/16 at which time respirations were nonlabored and cardiac rhythm was regular. She is to follow-up with Dr. Goodson in the next day or 2 for reassessment of sedimentation rate and general reevaluation; follow-up with Dr. Chavez in 1-2 weeks. Discharge medications were reviewed with the patient. Discharge Plan - Med Rec/Dispo Referrals/Follow Up: Siddharth Chavez MD [Physician] - (1-2 weeks) Nikolas Gann MD [Family Provider] - (1-3 days with follow-up lab work) Sonja Instructions: Chest Pain (DC), Cardiac Ablation (DC) Prescriptions: New DiltiaZEM CD [Cardizem Cd] 360 mg PO DAILY #30 capsule Nitrofurantoin. [Macrobid] 100 mg PO BIDWM #7 capsule Senna + Docusate [Senna Plus Tablet] 1 - 2 tab PO BID #100 tablet Polyethylene Glycol 3350 [Miralax] 17 gm PO DAILY #1 powd.pack Continue Pantoprazole Sodium [Protonix] 40 mg PO ACB #0 Niacinamide [Niacin] 1,500 mg PO HS #0 Vit C/E/Zn/Coppr/Lutein/Zeaxan [Preservision Areds 2 Softgel] 1 cap PO BID Tramadol [Ultram] 50 mg PO BID PRN PRN Reason: Pain Tramadol [Ultram] 50 mg PO HS Magnesium Oxide [Magnesium] 400 mg PO BID Hydrocortisone 2.5% Cream [Anusol-Hc 2.5% Cream] 1 applic RECTALLY TID PRN PRN Reason: Prn Orders Insulin Glargine [Lantus] 90 unit SQ HS PredniSONE [Deltasone] 40 mg PO WB Hydrocodone/APAP 5/325 [[place] 5/325] 1 tab PO Q4-6HPRN PRN PRN Reason: Pain Cholecalciferol (Vitamin D3) [Vitamin D3] 3,000 unit PO HS CephALEXin [Keflex] 500 mg PO BID Sucralfate [Carafate] 1 gm PO QID Levothyroxine Sodium 150 mg PO ACB Tizanidine HCl 4 mg PO BID PRN PRN Reason: Prn Orders DiphenhydrAMINE [Benadryl] 25 mg PO HS Tizanidine HCl 4 mg PO HS MDD bid Nitroglycerin [Nitrostat] 0.4 mg SL Q5MIN3 PRN #25 tablet PRN Reason: Chest Pain Rivaroxaban [Xarelto] 20 mg PO DAILY Insulin Aspart [NovoLOG] 58 - 60 unit SQ TIDWM Multivit,Calc,Mins/Iron/Folic [Women's Daily Caplet] 1 tab PO DAILY Gemfibrozil [Lopid] 600 mg PO HS Lisinopril/Hctz 03/26.5 [Prinzide 03/26.5] 1 tab PO DAILY Discontinued Sotalol [Betapace] 80 mg PO ACBID #60 tablet Docusate Sodium [Colace] 100 mg PO HS Discharge Instructions/Outpatient Orders: Final Provider Discharge Instructions Location: Determined By Patient - Disposition 01 Discharged Home, Self-Care
--- NOTE | 2017-02-16 17:34 | XRay Report ---
Indication: SOA PROCEDURE: XR chest 1V: Encounter: Initial Comparison: February 13, 2017 Findings: Small area of new airspace consolidation in the retrocardiac left lower lobe. Right lung is stable and grossly clear. There is no pleural effusion or pneumothorax. The heart size, pulmonary vascularity and mediastinal contours are unchanged. IMPRESSION: New left lower lobe atelectasis. .
== END 2017-02-16 13:05 | disposition home health service (06) | DRG 309 ==
LOC: MED 13:40 → ED 13:40 → MED 17:02 → CCU 21:00 → MED 02-14 14:38
PROVIDERS: ADMIT Hospitalist; ATTEND Internal Medicine

== ENCOUNTER 2017-04-09 16:02 | Inpatient (IN) ==
--- OUTSIDE RECORDS SUMMARY | 2017-04-09 16:29 | External Medical Summary | Continuity of Care Document ---
:1945 Author Organization [facility], [facility]. Allergies Medications Problems Date Dx Coded Attending Type Code Diagnosis Diagnosed By 05/14/2015 MANAS LOUIE, Mahamed M15.0 Primary 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 generalized (osteo)arthritis 05/14/2015 Yanci MALAGON MD M62.81 Muscle weakness 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 (generalized) Procedures Code Description Performed By Performed On PT JAN MALAGON MD 04/23/2015 [id number] EVALUATION Results Encounters ACCT No. Visit Discharge Status Pt. Type Provider Facility Loc./Unit Complaint Date/Time [id number] 05/15/2015 06/14/2015 [facility] 00:01:00 23:59:00 JAN LOUIE [id number] 04/23/2015 05/14/2015 [facility] 15:31:00 23:59:00 JAN LOUIE
[2017-04-09] MEDS ORDERED: NITROGLYCERIN 0.4 MG SUBLINGUAL TABLET SL PRN (17:16)
[2017-04-09] MEDS: INSULIN ASPART 100unit/ml INJECTION SQ SCH (19:21)
[2017-04-09] MEDS: RIVAROXABAN 20 MG TABLET PO SCH (19:21)
[2017-04-09] MEDS: SENNOSIDES 8.6 MG TABLET PO SCH (22:03)
[2017-04-09] MEDS: DOCUSATE SODIUM 100 MG CAPSULE PO SCH (22:03)
[2017-04-09] MEDS: SUCRALFATE 1 GM TABLET PO SCH (22:03)
[2017-04-09] MEDS: INSULIN DETEMIR 100unit/ml INJECTION SQ SCH (22:04)
[2017-04-09] MEDS: DiphenhydrAMINE 25 MG CAPSULE PO SCH (22:06)
[2017-04-09] MEDS: TRAMADOL 50 MG TABLET PO PRN (22:12)
[2017-04-10] MEDS: DiphenhydrAMINE 25 MG CAPSULE PO SCH ×4 (02:12→22:11)
[2017-04-10] MEDS: SUCRALFATE 1 GM TABLET PO SCH ×2 (05:44→19:50)
[2017-04-10] MEDS: PANTOPRAZOLE 40 MG TABLET PO SCH (05:45)
[2017-04-10] MEDS: LEVOTHYROXINE 150 MCG TABLET PO SCH (05:45)
[2017-04-10] MEDS: GEMFIBROZIL 600 MG TABLET PO SCH ×2 (08:26→16:02)
[2017-04-10] MEDS: MAGNESIUM OXIDE 400 MG TABLET PO SCH (08:27)
[2017-04-10] MEDS: FERROUS SULFATE 324 MG TABLET PO SCH (08:27)
[2017-04-10] MEDS: MULTI-VITAMIN + MINERAL TABLET PO SCH (08:27)
[2017-04-10] MEDS: DOCUSATE SODIUM 100 MG CAPSULE PO SCH ×2 (08:27→22:10)
[2017-04-10] MEDS: SENNOSIDES 8.6 MG TABLET PO SCH ×2 (08:28→22:10)
[2017-04-10] MEDS: INSULIN ASPART 100unit/ml INJECTION SQ SCH ×3 (08:28→17:53)
[2017-04-10] MEDS: TRAMADOL 50 MG TABLET PO PRN ×2 (08:33→16:46)
--- NOTE | 2017-04-10 11:29 | IRU History & Physical Report ---
HPI [facility] Date: Chief complaint: I'm weak and had rapid heart beat HPI: Ms. Rogers is a very pleasant 71-year-old female referred by Dr. Kiki Tan MD in [place]. Her primary care physician is Dr. Nikolas Gann. History is obtained predominantly from the patient and secondarily from transfer records. She has about a one-year history of atrial fibrillation. The patient did undergo direct current cardioversion on 01/01/2017. This helped for about 3 weeks and then she reverted back to atrial fibrillation. Sotalol initially was tried and was somewhat successful and then she was changed to diltiazem. Ejection fraction is noted to be 57%. The patient underwent electrophysiologic study and radiofrequency ablation on in [place]. According to the patient this changed her from atrial fibrillation to atrial flutter. She underwent a second ablation procedure of the AV node on 04/02/[address] Tan in [place]. She is followed locally by Dr. Chavez. The second AV ablation was successful and a permanent pacemaker was placed at the same time. Unfortunately the right ventricular lead became dislodged and she apparently did have a short episode of asystole lasting 7 seconds according to the patient. She was moved to the intensive care unit in the right ventricular lead was repositioned. She remains in a sling in the left arm and is not to lift anything over 10 pounds for at least one week. She did have symptoms with the atrial fibrillation characterized by a sensation of rapid heartbeat as well as lightheadedness prior to the AV ablation. She has other medical issues including diabetes mellitus. Formerly she did check her blood sugars once or twice daily and her most recent A1c is reportedly 6.9%. Recently she has not been checking her blood sugars as frequently. Of pertinence, she does have a diagnosis of temporal arteritis and is on prednisone 40 mg daily. She has had this for some time and has been on this dose for at least the past 3-4 months. She does have chronic kidney disease stage III. While in [place] she did have evidence of acute kidney injury in addition. Renal sonogram failed to reveal any evidence of hydronephrosis. She also had hyperkalemia and did require Kayexalate. Finally, the patient does have anemia. Serum iron was 5%. She was given iron supplementation in [place]. Hemoglobin continues to require monitoring carefully. At home, she does use Lortab 5 mg up to 2 daily. She does get around in her home and out & about with a powered wheelchair. She states that she can take only 2-3 steps on her own. However, the present time in view of the left arm being in a sling and the debilitation she has experienced after the AV reena ablation, she is unable to care for herself at home and requires intensive individualized therapy from a multidisciplinary approach in view of her multiple medical problems. She was assessed by physical therapy and occupational therapy and was felt to be a good candidate for inpatient rehabilitation. At home, she lives alone. She has a powered wheelchair as her assistive device. No steps are noted at home. Prior level of functioning prior to her hospitalization included independent functioning for eating and grooming, modified independent functioning for bathing, upper and lower body dressing, toileting, bed/chair/wheelchair transfers and toilet transfers. She was total assistance with walking and use a powered wheelchair. She was independent in the wheelchair. Current level of functioning is as follows: She is modified independent for eating, moderate assistance for grooming, maximum assistance for bathing and upper and lower body dressing, maximal assistance for toileting, moderate assistance for bed/chair/wheelchair transfers, total assistance for walking. The following medical conditions are noted and require active monitoring and/or management: 1. Diabetes mellitus with evidence of insulin resistance on fairly high doses of insulin: Patient is at risk for hyperglycemia or hypoglycemia in view of change in activity level on the rehabilitation unit and getting back home. She is at risk for wound infection and skin breakdown. 2. Recent acute kidney injury superimposed upon chronic kidney disease: She requires close monitoring of her kidney function as well as potassium which was elevated in [place]. 3. Recent AV ablation with permanent pacemaker placement and dislodgment of right ventricular lead. She is at risk for arrhythmias. 4. Anemia with evidence of iron deficiency. She received iron supplementation by a vein in [place] and will require close monitoring of her hemoglobin. 5. Temporal arteritis on moderately high doses of chronic prednisone: Patient is at risk for skin breakdown, wound infection as well as hyperglycemia in view of the chronic prednisone usage at this level. The following therapies will be needed: 1. Physical therapy: for transfers and ambulation and stairs. 2. Occupational therapy: for ADL's and transfers. 3. Dietitian: In view of diabetes mellitus. 4. Medical management: for the above conditions. 5. 24 hour Rehabilitation Nursing to monitor and address the following: Monitoring of blood sugars, blood pressure, cardiac rhythm, neurologic status [facility] Patient Stated Medical History Peripheral Neuropathy Yes Cataracts Yes Macular Degeneration Yes Other HEENT glasses for nearsighted Angina Yes Cardiac Arrhythmia Yes: a fib/flutter Hypertension Yes Bronchitis Yes Sleep Apnea Yes Diabetes Mellitus Type 2 Yes Constipation Yes Gastroesophageal Reflux Yes Disease Other GI Yes: IBS,hemarroids Hx Incontinence Yes Hx Urinary Tract Infection Yes Other Yes: stents after kidney stone removal ,removed Osteoarthritis Yes Other Musculoskeletal Yes: fibrymalgia Sepsis Yes Other Infectious Yes: psorasis Depression Yes Post Menopausal Yes Clinic Medical History Cataracts, bilateral (Acute Medical) Diabetes 1.5, managed as type 2 (Acute Medical) Dyslipidemia (Acute Medical) Fibromyalgia (Acute Medical) Hypertension (Acute Medical) Hypothyroidism (Acute Medical) aquired Idiopathic pancreatitis (Acute Medical) Insomnia (Acute Medical) Osteoarthritis (Acute Medical) Psoriasis arthropathica (Acute Medical) Medical History Updates: A-fib: now s/p ablation and PPM in place. Diabetes mellitus. hypertension. hyperlipidemia. Temporal arteritis: still requiring prednisone. Anemia. Chronic kidney disease. Recent acute kidney injury. GERD. thyroid disease. anxiety. O2 dependent Surgical History: Tubal ligation. Hysterectomy without BSO. Thyroidectomy. Cholecystectomy. Cataract surgery Family History: Family History Father Blood clots in brain Unknown Hypertension Breast cancer Mother Breast cancer Diabetes Myocardial infarct Stroke - Social History Smoking status: Former smoker Packs per day: 1.5 (Started age 18: last cigarette: 50 yo) Substance use type: does not use Alcohol intake: former Alcohol intake frequency: a few times a month Housing: house Household members: none Current occupational status: retired Current residence: Apartment/Private Home Social history: Patient states that she is . 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 Review of Systems - Constitutional Constitutional: Absent: anorexia, chills, fatigue, fever(s), headache(s), lethargy, malaise, night sweats, weakness, weight gain, weight loss - EENMT Eyes: Absent: blurry vision, change in vision, diplopia Mouth/Throat: Absent: changes in swallowing, painful swallowing, change in taste , bleeding gums, change in voice - Cardiovascular Cardiovascular: Absent: chest pain, palpitations, syncope, dyspnea on exertion, orthopnea, edema, cyanosis, heart murmur Rhythm: Present: regular rhythm Vascular: Absent: intermittent claudication, pedal edema, unilateral swelling - Respiratory Respiratory: Absent: cough, dyspnea, hemoptysis, dyspnea on exertion, wheezing, pain on inspiration, chest congestion, excessive phlegm production - Gastrointestinal Gastrointestinal: Present: abdominal pain (states that she had a coughing proximal is him several days ago resulting in abdominal muscle pain), constipation. Absent: change in bowel habits, diarrhea, dyspepsia, dysphagia, early satiety, hematochezia, melena, nausea, vomiting - Musculoskeletal Musculoskeletal: Present: abnormal gait, muscle weakness. Absent: arthralgias, back pain, joint swelling, limited range of motion, myalgias - Integumentary/Breasts Integumentary: Absent: alopecia, erythema, lesions, pruritus, rash, jaundice - Neurological Neurological: Present: weakness (requires a power wheelchair for ambulation at home.). Absent: abnormal gait, abnormal movements, abnormal speech, confusion, convulsions, dizziness, focal weakness, frequent falls, headache(s), loss of vision, memory loss, numbness, paresthesias, tremor(s) - Psychiatric Psychiatric: Absent: abnormal sleep pattern, anxiety, depression - Endocrine Endocrine: Absent: cold intolerance, flushing, heat intolerance, palpitations - Hematologic/Lymphatic Hematologic/Lymphatic: Absent: easy bleeding, easy bruising, lymphadenopathy - Allergic/Immunologic Allergic/Immunologic: Absent: urticaria Medications Home Medications Medication Instructions Recorded Confirmed Type Pantoprazole Sodium [Protonix] 40 mg PO ACB #0 01/25/16 04/09/17 History Cholecalciferol (Vitamin D3) 1,000 unit PO DAILY 02/13/17 04/09/17 History [Vitamin D3] DiphenhydrAMINE [Benadryl] 25 mg PO Q8HR 02/13/17 04/09/17 History Gemfibrozil [Lopid] 600 mg PO ACBID 02/13/17 04/09/17 History Magnesium Oxide [Magnesium] 400 mg PO DAILY 02/13/17 04/09/17 History Multivit,Calc,Mins/Iron/Folic 1 tab PO DAILY 02/13/17 04/09/17 History [Women's Daily Caplet] Sucralfate [Carafate] 1 gm PO BID 02/13/17 04/09/17 History Tizanidine HCl 4 mg PO BID PRN 02/13/17 04/09/17 History diltiazem CD 240 mg 240 mg PO BID 30 Days #60 03/05/17 04/09/17 History capsule,extended release 24 hr Docusate Sodium [Colace] 1 cap PO BID 04/09/17 04/09/17 History Ferrous Sulfate 325 mg PO DAILY 04/09/17 04/09/17 History Insulin Detemir [Levemir] 90 units SQ HS 04/09/17 04/09/17 History Insulin Lispro [Humalog] 60 unit SQ TIDWM 04/09/17 04/09/17 History PredniSONE [Deltasone] 40 mg PO DAILY 04/09/17 History Rivaroxaban [Xarelto] 20 mg PO WS 04/09/17 04/09/17 History Sennosides 8.6 mg PO BID 04/09/17 04/09/17 History Tramadol [Ultram] 50 mg PO Q6HR PRN 04/09/17 04/09/17 History Allergies Allergy/AdvReac Type Severity Reaction Status Date / Time aspirin Allergy Severe Anaphylactic Verified 04/09/17 23:13 Shock levofloxacin [From Levaquin] Allergy Severe Anaphylactic Verified 04/09/17 23:13 Shock Penicillins Allergy Severe Anaphylactic Verified 04/09/17 23:13 Shock Sulfa (Sulfonamide Allergy Severe Anaphylactic Verified 04/09/17 23:13 Antibiotics) Shock Latex, Natural Rubber Allergy Intermediate Rash Verified 04/09/17 23:13 Lmyztsy-Rhg-Yqt Reductase Allergy Intermediate muscle Verified 04/09/17 23:13 Inhibitor weakness codeine Allergy Mild Nausea and Verified 04/09/17 23:13 Vomiting Iodine and Iodide Containing Allergy Mild Rash Verified 04/09/17 23:13 Produc niacin Allergy Flushing Verified 04/09/17 19:41 butorphanol [From Stadol] AdvReac Severe aggressive Verified 04/09/17 23:13 behavior morphine AdvReac Nausea and Verified 03/11/17 07:06 Vomiting Results IRU - Labs Labs: Reviewed outside records. Exam Vital Signs: Temperature 97.9 F 04/10/17 08:00 Pulse Rate 111 H 04/10/17 08:00 Respiratory Rate 15 04/10/17 08:00 Blood Pressure 158/86 H 04/10/17 08:00 Pulse Oximetry 94 04/10/17 08:00 Height/Weight/BMI: Height 1.5 m - Constitutional Present: no acute distress, well nourished, well developed, morbidly obese, cooperative - Routine HEENT Exam Head: Present: normocephalic, atraumatic. Absent: cushingoid faces, abrasion, laceration, hematoma Eye: Present: EOMI, PERRL. Absent: conjunctival icterus, scleral injection, periorbital swelling, nystagmus ENT: Present: mucous membranes moist, oropharynx clear Comments: "Cushingoid" facies - Routine Neck Exam Present: supple, full ROM, trachea midline. Absent: lymphadenopathy, thyromegaly, tenderness, swelling - Routine Chest/Breast/Axilla Exam Chest wall: Present: pacemaker (dressing in place under left collarbone). Absent: tenderness, mass Axillae: Absent: lymphadenopathy, mass - Routine Respiratory Exam Present: CTA bilaterally. Absent: accessory muscle use, decreased breath sounds , prolonged expiratory phase, rales, respiratory distress, rhonchi, stridor, wheezes, crackles, distant breath sounds - Routine Cardiovascular Exam Present: RRR, S1, S2, no murmur. Absent: gallop, S3, S4, click, irregular rhythm - Routine Abdominal Exam Present: soft, normoactive bowel sounds, tenderness (she is tender to palpate left abdominal area. No masses present), non distended. Absent: rebound, guarding, firm, rigid, organomegaly, mass, hernia, wound - Routine Extremities Exam Present: no edema, non tender, pulses intact, normal capillary refill. Absent: cyanosis, clubbing - Routine Back/Spine/Pelvis Exam Back/Spine: Present: full ROM. Absent: scoliosis, kyphosis - Routine Skin Exam Present: intact, dry, warm. Absent: cyanosis, erythema, pallor, mottling, petechiae, urticaria, lesions, jaundice - Routine Neurological Exam Present: alert, oriented X3, CN II-XII intact, sensory deficit, motor deficit, altered mental status, moving all extremities (left arm in sling. She has evidence of weakness in all 4 extremities.), normal speech - Routine Psychiatric Exam Present: normal affect, normal thought process, cooperative, good insight, good judgment. 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 She has had a recent dislodgment of the right ventricular lead but it is in stable position at present. (2) Diabetes mellitus type 2 in obese Current visit: Yes Status: Chronic She has diabetes mellitus type 2 with insulin resistance and on long-term insulin therapy. She monitors her sugars once or twice daily at home in the past. Recent A1c reportedly 6.9%. (3) Anemia Qualifiers: Anemia type: iron deficiency Iron deficiency anemia type: other iron deficiency Qualified Code(s): D50.8 - Other iron deficiency anemias Current visit: Yes Status: Chronic She has evidence of active deficiency anemia. Uncertain if this is chronic or acute. She was given intravenous iron in [place]. (4) CKD (chronic kidney disease) stage 3, GFR 30-59 ml/min Current visit: Yes Status: Chronic She has recent acute kidney injury superimposed upon chronic kidney disease. She had hyperkalemia requiring Kayexalate. (5) Temporal arteritis Current visit: No Status: Chronic (6) HTN (hypertension) Qualifiers: Hypertension type: essential hypertension Qualified Code(s): I10 - Essential (primary) hypertension Current visit: No Status: Chronic DVT Prophylaxis: Xarelto Resuscitation Status: Full Code - Course Hospital Course: Pankaj Dixon MD: - Interventions to Obtain Goals PT Treatment Plan: Balance/Proprioception, Functional Activities, Gait Training , Therapeutic Exercise OT Treatment Plan: ADL (Basic Care), Balance Training, IADL, Pt./Family Education, Ther. 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 She will require an intensive individualized multidisciplinary approach with occupational therapy , physical therapy and 24 rehabilitation nursing along with medical supervision. It is anticipated the patient will be able to return to her previous level of functioning at her home with modified independent ability to transfer and for ADLs.
--- NOTE | 2017-04-10 11:44 | IRU 24Hr Post Admit Eval ---
24 Hr Post Admission Physical - Relevant Changes Relevant Changes: No Reviewed: I have reviewed the patient's information and concur with the finding and results of the pre-admission screen. Certification: I certify the patient for rehabilitation. 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 She has been on chronic prednisone. She has had a severe illness recently. She has multiple reasons for significant myopathic weakness. 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 Status: Acute Code(s): I97.190 - Other postprocedural cardiac functional disturbances following cardiac surgery; I44.2 - Atrioventricular block, complete Classification: Present on IRF Admission, IRF Tx That Should Address Diagnosis, Diagnosis Requiring Medical Follow Up (3) Diabetes mellitus type 2 in obese Status: Chronic Code(s): E11.69 - Type 2 diabetes mellitus with other specified complication; E66.9 - Obesity, unspecified Classification: Present on IRF Admission, IRF Tx That Should Address Diagnosis, Diagnosis Requiring Medical Follow Up (4) Anemia Status: Chronic Qualifiers: Anemia type: iron deficiency Iron deficiency anemia type: other iron deficiency Qualified Code(s): D50.8 - Other iron deficiency anemias Code(s): D64.9 - Anemia, unspecified Classification: Present on IRF Admission, Diagnosis Requiring Medical Follow Up (5) CKD (chronic kidney disease) stage 3, GFR 30-59 ml/min Status: Chronic Code(s): N18.3 - Chronic kidney disease, stage 3 (moderate) Classification: Present on IRF Admission, Diagnosis Requiring Medical Follow Up (6) Temporal arteritis Status: Chronic Code(s): M31.6 - Other giant cell arteritis Classification: Present on IRF Admission, IRF Tx That Should Address Diagnosis, Diagnosis Requiring Medical Follow Up (7) HTN (hypertension) Status: Chronic Qualifiers: Hypertension type: essential hypertension Qualified Code(s): I10 - Essential (primary) hypertension Code(s): I10 - Essential (primary) hypertension Classification: Present on IRF Admission, Diagnosis Requiring Medical Follow Up - Prior Functional Status Lives With: Alone Residence Type: Apartment/Private Home Assitive Devices: Motorized Wheelchair Prior Functional Status: Indep. at home or school - Current Functional Status Current Level of Function: Current level of functioning is as follows: She is modified independent for eating, moderate assistance for grooming, maximum assistance for bathing and upper and lower body dressing, maximal assistance for toileting, moderate assistance for bed/chair/wheelchair transfers, total assistance for walking. Failed Alternative Therapy: Arrived from Acute Care Patient Requirements: The patient requires oversight by rehabilitation physician to manage their rehabilitation treatment plan and multidisciplinary approach to care that can only be provided in an IRF and requires a multidisciplinary approach to care, provided by professional PTs, OTs, STs, dieticians, RTs, rehabilitation nurses and is not available in lesser levels of care. Limitations Req: Mobility Impairment, ADL Impairment Physical Therapy Minutes: 90 Occupational Therapy Minutes: 90 Therapy: The patient is to receive therapy at least 5 days a week. - Complications/Comorbidities Impact on Functional Outcomes: Her morbid obesity and myopathy will negatively impact her functional outcomes. Barriers to Discharge: Weakness, Endurance, Medical Limitation (recent permanent pacemaker with lead dislodgment) - Plan to Avoid Complications Plan to Avoid Complications: The patient cannot receive this care in a lesser intensive setting such as [facility] or Outpatient Therapy due to the patient requiring the following : Close monitoring of cardiac status, arrhythmia, blood sugars as well as need to ensure adequate nutritional intake during the healing process..
[2017-04-10] MEDS: PredniSONE 20 MG TABLET PO SCH (11:50)
[2017-04-10] MEDS: MULTI-VIT + MINERAL (Opti-gen) TABLET PO SCH (11:50)
--- NOTE | 2017-04-10 12:53 | Cardiology Consult Note ---
<Isabel Claros - Last Filed: 04/10/17 17:52> History of Present Illness Consult date: 04/10/17 Requesting physician: Pankaj Dixon Chief complaint: Recent ablation and PPM History of present illness: Juliann is a 71 year old female who is well known to Dr. Chavez with a history of paroxysmal atrial fibrillation, HLD, HTN and type II DM who did undergo direct current cardioversion on 01/01/2017. This helped for about 3 weeks and then she reverted back to atrial fibrillation. Sotalol initially was tried and was somewhat successful and then she was changed to diltiazem. She did have symptoms with the atrial fibrillation characterized by a sensation of rapid heartbeat as well as lightheadedness prior to the AV ablation. Ejection fraction is noted to be 57%. She underwent electrophysiologic study and radiofrequency ablation on 2016 in [place] which changed her from atrial fibrillation to atrial flutter. She underwent a second ablation procedure of the AV node on 04/02/[address] Tan in [place]. The second AV ablation was successful and a permanent pacemaker was placed at the same time. Unfortunately the right ventricular lead became dislodged and she apparently did have a short episode of asystole lasting 7 seconds according to the patient. She was moved to the intensive care unit in the right ventricular lead was repositioned. She remains in a sling in the left arm and is not to lift anything over 10 pounds for at least one week. She was admitted yesterday to IRU at [facility] for strengthening. Dr. Chavez is consulted Review of Systems - Constitutional Constitutional: Present: weakness. Absent: chills, fatigue, fever(s) - EENMT Eyes: Absent: change in vision Balance: Absent: vertigo Mouth/Throat: Absent: sore throat - Cardiovascular Cardiovascular: Absent: chest pain, palpitations, syncope, edema Vascular: Absent: pedal edema - Respiratory Respiratory: Absent: cough, dyspnea - Gastrointestinal Gastrointestinal: Absent: abdominal pain, diarrhea, nausea, vomiting - Genitourinary Genitourinary: Absent: dysuria - Musculoskeletal Musculoskeletal: Present: abnormal gait, muscle weakness - Integumentary/Breasts Integumentary: Absent: rash - Neurological Neurological: Absent: dizziness - Endocrine Endocrine: Absent: palpitations [facility] Patient Stated Medical History Peripheral Neuropathy Yes Cataracts Yes Macular Degeneration Yes Other HEENT glasses for nearsighted Angina Yes Cardiac Arrhythmia Yes: a fib/flutter Hypertension Yes Bronchitis Yes Sleep Apnea Yes Diabetes Mellitus Type 2 Yes Constipation Yes Gastroesophageal Reflux Yes Disease Other GI Yes: IBS,hemarroids Hx Incontinence Yes Hx Urinary Tract Infection Yes Other Yes: stents after kidney stone removal ,removed Osteoarthritis Yes Other Musculoskeletal Yes: fibrymalgia Sepsis Yes Other Infectious Yes: psorasis Depression Yes Post Menopausal Yes Clinic Medical History Cataracts, bilateral (Acute Medical) Diabetes 1.5, managed as type 2 (Acute Medical) Dyslipidemia (Acute Medical) Fibromyalgia (Acute Medical) Hypertension (Acute Medical) Hypothyroidism (Acute Medical) aquired Idiopathic pancreatitis (Acute Medical) Insomnia (Acute Medical) Osteoarthritis (Acute Medical) Psoriasis arthropathica (Acute Medical) Medical History Updates: A-fib: now s/p ablation and PPM in place. Diabetes mellitus. hypertension. hyperlipidemia. Temporal arteritis: still requiring prednisone. Anemia. Chronic kidney disease. Recent acute kidney injury. GERD. thyroid disease. anxiety. O2 dependent Surgical History: Tubal ligation. Hysterectomy without BSO. Thyroidectomy. Cholecystectomy. Cataract surgery Family History: Family History Father Blood clots in brain Unknown Hypertension Breast cancer Mother Breast cancer Diabetes Myocardial infarct Stroke - Social History Smoking status: Former smoker Substance use type: does not use Alcohol intake frequency: does not drink Current residence: Apartment/Private Home Medications Home Medications Medication Instructions Recorded Confirmed Type Pantoprazole Sodium [Protonix] 40 mg PO ACB #0 01/25/16 04/09/17 History Cholecalciferol (Vitamin D3) 1,000 unit PO DAILY 02/13/17 04/09/17 History [Vitamin D3] DiphenhydrAMINE [Benadryl] 25 mg PO Q8HR 02/13/17 04/09/17 History Gemfibrozil [Lopid] 600 mg PO ACBID 02/13/17 04/09/17 History Magnesium Oxide [Magnesium] 400 mg PO DAILY 02/13/17 04/09/17 History Multivit,Calc,Mins/Iron/Folic 1 tab PO DAILY 02/13/17 04/09/17 History [Women's Daily Caplet] Sucralfate [Carafate] 1 gm PO BID 02/13/17 04/09/17 History Tizanidine HCl 4 mg PO BID PRN 02/13/17 04/09/17 History diltiazem CD 240 mg 240 mg PO BID 30 Days #60 03/05/17 04/09/17 History capsule,extended release 24 hr Docusate Sodium [Colace] 1 cap PO BID 04/09/17 04/09/17 History Ferrous Sulfate 325 mg PO DAILY 04/09/17 04/09/17 History Insulin Detemir [Levemir] 90 units SQ HS 04/09/17 04/09/17 History Insulin Lispro [Humalog] 60 unit SQ TIDWM 04/09/17 04/09/17 History PredniSONE [Deltasone] 40 mg PO DAILY 04/09/17 History Rivaroxaban [Xarelto] 20 mg PO WS 04/09/17 04/09/17 History Sennosides 8.6 mg PO BID 04/09/17 04/09/17 History Tramadol [Ultram] 50 mg PO Q6HR PRN 04/09/17 04/09/17 History Allergies Allergy/AdvReac Type Severity Reaction Status Date / Time aspirin Allergy Severe Anaphylactic Verified 04/09/17 23:13 Shock levofloxacin [From Levaquin] Allergy Severe Anaphylactic Verified 04/09/17 23:13 Shock Penicillins Allergy Severe Anaphylactic Verified 04/09/17 23:13 Shock Sulfa (Sulfonamide Allergy Severe Anaphylactic Verified 04/09/17 23:13 Antibiotics) Shock Latex, Natural Rubber Allergy Intermediate Rash Verified 04/09/17 23:13 [id number] Reductase Allergy Intermediate muscle Verified 04/09/17 23:13 Inhibitor weakness codeine Allergy Mild Nausea and Verified 04/09/17 23:13 Vomiting Iodine and Iodide Containing Allergy Mild Rash Verified 04/09/17 23:13 Produc niacin Allergy Flushing Verified 04/09/17 19:41 butorphanol [From Stadol] AdvReac Severe aggressive Verified 04/09/17 23:13 behavior morphine AdvReac Nausea and Verified 03/11/17 07:06 Vomiting Exam Vital signs: Temperature 97.9 F 04/10/17 08:00 Pulse Rate 111 H 04/10/17 08:00 Respiratory Rate 15 04/10/17 08:00 Blood Pressure 158/86 H 04/10/17 08:00 Pulse Oximetry 94 04/10/17 08:00 - Constitutional no acute distress, morbidly obese, cooperative - Routine HEENT Exam Head: Present: normocephalic ENT: Present: mucous membranes moist - Routine Neck Exam Present: supple. Absent: JVD, carotid bruit - Routine Chest/Breast/Axilla Exam Chest wall: Absent: tenderness - Routine Respiratory Exam Present: CTA bilaterally. Absent: rales, crackles - Routine Cardiovascular Exam Present: RRR, S1, S2, no murmur. Absent: JVD - Routine Abdominal Exam Present: soft, normoactive bowel sounds - Routine Extremities Exam Present: no edema - Routine Skin Exam Present: intact, dry, warm - Routine Neurological Exam Present: alert, oriented X3 - Routine Psychiatric Exam Present: normal affect, normal thought process Results 04/10/17 05:46 04/10/17 05:46 CBC 04/10/17 Range/Units 05:46 WBC 11.3 H (4.5-11.0) T/MM3 RBC 3.45 L (4.00-5.20) M/MM3 Hgb 9.5 L (12-16) GM/DL Hct 32.6 L (36-46) % Plt Count 362 (130-400) T/MM3 Neut # (Auto) 8.0 H (1.8-7.7) T/MM3 Lymph # (Auto) 2.0 (1-4.8) T/MM3 [place] # (Auto) 0.9 H (0-0.8) T/MM3 Eos # (Auto) 0.2 (0-0.5) T/MM3 Baso # (Auto) 0.0 (0-0.2) T/MM3 Comprehensive Metabolic Panel 04/10/17 Range/Units 05:46 Sodium 146 H (134-144) MEQ/L Potassium 4.8 (3.6-5) MEQ/L Chloride 108 H (98-107) MEQ/L Carbon Dioxide 31 H (22-30) MEQ/L BUN 45.0 H (7-17) MG/DL Creatinine 1.2 (0.7-1.2) MG/DL Glucose 119 H (65-110) MG/DL Calcium 9.6 (8.4-10.2) MG/DL Intake and Output 04/09/17 04/10/17 04/10/17 22:59 06:59 14:59 Intake Total 240 / 240 Balance 240 / 240 Intake: Oral 240 / 240 Other: Urine Color Yellow Stool Color Brown Stool Consistency Soft Formed # Voids 1 1 Assessment and Plan - Assessment and Plan (1) PAF (paroxysmal atrial fibrillation) Current visit: Yes Status: Acute -Telemetry please - Continue Xarelto for anticoagulation - Continue Cardizem only if used for BP, as she has had AV node ablation. (2) HTN (hypertension) Current visit: No Status: Chronic Add Lisinopril 10mg daily - monitor renal function (3) Hyperlipidemia Current visit: No Status: Chronic (4) Diabetes mellitus type 2 in obese Current visit: Yes Status: Chronic (5) Presence of cardiac pacemaker Current visit: Yes Status: Acute Hospital Course Summary Disclaimer: The visit summary below is not to be considered part of the above Progress Note. <Siddharth Chavez - Last Filed: 04/13/17 12:55> [facility] Patient Stated Medical History Peripheral Neuropathy Yes Cataracts Yes Macular Degeneration Yes Other HEENT glasses for nearsighted Angina Yes Cardiac Arrhythmia Yes: a fib/flutter Hypertension Yes Bronchitis Yes Sleep Apnea Yes Diabetes Mellitus Type 2 Yes Constipation Yes Gastroesophageal Reflux Yes Disease Other GI Yes: IBS,hemarroids Hx Incontinence Yes Hx Urinary Tract Infection Yes Other Yes: stents after kidney stone removal ,removed Osteoarthritis Yes Other Musculoskeletal Yes: fibrymalgia Sepsis Yes Other Infectious Yes: psorasis Depression Yes Post Menopausal Yes Clinic Medical History Cataracts, bilateral (Acute Medical) Diabetes 1.5, managed as type 2 (Acute Medical) Dyslipidemia (Acute Medical) Fibromyalgia (Acute Medical) Hypertension (Acute Medical) Hypothyroidism (Acute Medical) aquired Idiopathic pancreatitis (Acute Medical) Insomnia (Acute Medical) Osteoarthritis (Acute Medical) Psoriasis arthropathica (Acute Medical) Family History: Family History Father Blood clots in brain Unknown Hypertension Breast cancer Mother Breast cancer Diabetes Myocardial infarct Stroke Exam Vital signs: Temperature 97 F 04/13/17 08:00 Pulse Rate 75 04/13/17 08:00 Respiratory Rate 16 04/13/17 08:00 Blood Pressure 120/62 04/13/17 08:00 Pulse Oximetry 95 04/13/17 08:00 Results 04/13/17 04:36 04/13/17 04:36 CBC 04/13/17 Range/Units 04:36 WBC 11.5 H (4.5-11.0) T/MM3 RBC 3.30 L (4.00-5.20) M/MM3 Hgb 9.3 L (12-16) GM/DL Hct 31.5 L (36-46) % Plt Count 356 (130-400) T/MM3 Neut # (Auto) Not performed Lymph # (Auto) Not performed [place] # (Auto) Not performed Eos # (Auto) Not performed Baso # (Auto) Not performed Comprehensive Metabolic Panel 04/13/17 Range/Units 04:36 Sodium 142 (134-144) MEQ/L Potassium 5.1 H (3.6-5) MEQ/L Chloride 107 (98-107) MEQ/L Carbon Dioxide 26 (22-30) MEQ/L BUN 60.0 H* (7-17) MG/DL Creatinine 1.3 H D (0.7-1.2) MG/DL Glucose 122 H (65-110) MG/DL Calcium 9.4 (8.4-10.2) MG/DL Intake and Output 04/12/17 04/13/17 04/13/17 22:59 06:59 14:59 Intake Total 1280 / 1280 Output Total 500 / 500 Balance 780 / 780 Intake: Oral 1280 / 1280 Output: Urine Amount (Catheter) 500 / 500 Other: Urine Appearance Cloudy Cloudy Clear Urine Color Dark Yellow Dark Yellow Yellow Urine Odor Strong Stool Color Brown Brown Stool Consistency Liquid Soft Loose Size of Bowel Movement Large Large # Voids 1 1 # Bowel Movements 1 # Incontinent Bowel 1 Movements Assessment and Plan - Attestation Attestation Narrative: 04/13/17 12:55 Recommendation After examining the patient I agree with the above assessment. I am involved in the formulation of the patient's plan of care. - Assessment and Plan (1) HTN (hypertension) Current visit: No Status: Chronic (2) Hyperlipidemia Current visit: No Status: Chronic (3) Diabetes mellitus type 2 in obese Current visit: Yes Status: Chronic (4) PAF (paroxysmal atrial fibrillation) Current visit: Yes Status: Resolved (5) Presence of cardiac pacemaker Current visit: Yes Status: Chronic Hospital Course Summary Disclaimer: The visit summary below is not to be considered part of the above Progress Note.
--- NOTE | 2017-04-10 13:47 | Consult Note ---
<Dhara Arredondo - Last Filed: 04/10/17 15:47> Consult Information - Data of Consult Consult date: 04/10/17 Requesting Physician: Pankaj Dixon MD Primary Care Provider: Nikolas Gann MD Family Provider: Nikolas Gann MD - Consult Narrative Reason for consult: Medical management of chronic health problems. History of present illness: Patient is a 71-year-old female who was referred to [facility] rehabilitation unit by Dr. Tan following a second procedure for ablation of AV node on 04/02/17. She initially had a direct current cardioversion on for atrial fibrillation which was somewhat successful for about 3 weeks and then she reverted back to atrial fibrillation. The patient underwent an electrophysiologic study and radiofrequency ablation on 03/18/17 which, according to the patient, changed her from atrial fibrillation to atrial flutter. She had the second ablation procedure as indicated above. This ablation was successful and a permanent pacemaker was placed at the same time. Unfortunately, the right ventricular lead became dislodged and patient reports she had a short episode of asystole lasting for 7 seconds. She was then moved to the intensive care unit and reports was hospitalized in [place] for approximately a week. Patient has insulin requiring Type 2 DM. She also has CKD and recent DARREL while hospitalized. She is on predniosne 40mg qd for temporal arteritis and has apparently been on this dose for at least the past 3-4 months. [facility] Medical History Recent AV ablation for atrial fibrillation Status post right pacemaker implantation Diabetes mellitus (A1c 6.9%) O2 dependent Hypothyroidism Dyslipidemia Insomnia Temporal arteritis (requiring prednisone) Chronic kidney disease stage III-with recent acute kidney injury Iron deficiency anemia Hypertension GERD Nephrolithiasis (history of stents) Fibromyalgia Depression Psoriasis Osteoarthritis Surgical History: Tubal ligation. Hysterectomy without BSO. Thyroidectomy. Cholecystectomy. Cataract surgery Family History: Family History Father Blood clots in brain Unknown Hypertension Breast cancer Mother Breast cancer Diabetes Myocardial infarct Stroke - Social History Smoking status: Former smoker (started age 18. Quit age 50) Substance use type: does not use Alcohol intake frequency: a few times a month Housing: house Current residence: Apartment/Private Home Social history: Patient is PCP- Dr. Gann Him Analyst-Dr. Chavez Review of Systems All systems PM: 10-point ROS was reviewed, no additional remarkable complaints except - Constitutional Constitutional: Present: weakness - Musculoskeletal Musculoskeletal: Present: other (left shoulder pain (patient states she fell prior to her hospitalization)) Medications Home Medications Medication Instructions Recorded Confirmed Type Pantoprazole Sodium [Protonix] 40 mg PO ACB #0 01/25/16 04/16/17 History Cholecalciferol (Vitamin D3) 1,000 unit PO DAILY 02/13/17 04/16/17 History [Vitamin D3] DiphenhydrAMINE [Benadryl] 25 mg PO Q8HR 02/13/17 04/16/17 History Gemfibrozil [Lopid] 600 mg PO ACBID 02/13/17 04/16/17 History Magnesium Oxide [Magnesium] 400 mg PO DAILY 02/13/17 04/16/17 History Multivit,Calc,Mins/Iron/Folic 1 tab PO DAILY 02/13/17 04/16/17 History [Women's Daily Caplet] Sucralfate [Carafate] 1 gm PO BID 02/13/17 04/16/17 History Tizanidine HCl 4 mg PO BID PRN 02/13/17 04/16/17 History diltiazem CD 240 mg 240 mg PO BID 30 Days #60 03/05/17 04/16/17 History capsule,extended release 24 hr Docusate Sodium [Colace] 1 cap PO BID 04/09/17 04/16/17 History Ferrous Sulfate 325 mg PO DAILY 04/09/17 04/16/17 History Rivaroxaban [Xarelto] 20 mg PO WS 04/09/17 04/16/17 History Sennosides 8.6 mg PO BID 04/09/17 04/16/17 History Tramadol [Ultram] 50 mg PO Q6HR PRN 04/09/17 04/16/17 History Allergies Allergy/AdvReac Type Severity Reaction Status Date / Time aspirin Allergy Severe Anaphylactic Verified 04/09/17 23:13 Shock levofloxacin [From Levaquin] Allergy Severe Anaphylactic Verified 04/09/17 23:13 Shock Penicillins Allergy Severe Anaphylactic Verified 04/09/17 23:13 Shock Sulfa (Sulfonamide Allergy Severe Anaphylactic Verified 04/09/17 23:13 Antibiotics) Shock Latex, Natural Rubber Allergy Intermediate Rash Verified 04/09/17 23:13 [id number]-Klp Reductase Allergy Intermediate muscle Verified 04/09/17 23:13 Inhibitor weakness codeine Allergy Mild Nausea and Verified 04/09/17 23:13 Vomiting Iodine and Iodide Containing Allergy Mild Rash Verified 04/09/17 23:13 Produc niacin Allergy Flushing Verified 04/09/17 19:41 butorphanol [From Stadol] AdvReac Severe aggressive Verified 04/09/17 23:13 behavior morphine AdvReac Nausea and Verified 03/11/17 07:06 Vomiting Exam Vital Signs: Temperature 97.9 F 04/10/17 08:00 Pulse Rate 111 H 04/10/17 08:00 Respiratory Rate 15 04/10/17 08:00 Blood Pressure 158/86 H 04/10/17 08:00 Pulse Oximetry 94 04/10/17 08:00 Height/Weight/BMI: Height 1.5 m - Constitutional Present: no acute distress, well nourished, well developed, morbidly obese, other (cushingoid appearance) - Routine HEENT Exam Head: Present: normocephalic, atraumatic Eye: Present: EOMI. Absent: conjunctival icterus ENT: Present: mucous membranes moist. Absent: dentition normal (edentulous) - Routine Neck Exam Present: supple. Absent: lymphadenopathy - Routine Chest/Breast/Axilla Exam Chest wall: Present: pacemaker (Steri-Strips in place over wound) - Routine Respiratory Exam Present: CTA bilaterally. Absent: wheezes - Routine Cardiovascular Exam Present: RRR, S1, S2. Absent: murmur - Routine Abdominal Exam Present: soft, normoactive bowel sounds, non distended. Absent: tenderness - Routine Extremities Exam Present: no edema, normal capillary refill Comments: Left arm in sling - Routine Skin Exam Present: dry, warm - Routine Neurological Exam Present: alert, oriented X3, CN II-XII intact - Routine Psychiatric Exam Present: normal affect, cooperative Results - Labs CBC & Chem 7: 04/10/17 05:46 04/10/17 05:46 Assessment and Plan Assessment and Plan: Assessment Recent AV ablation for atrial fibrillation Status post right pacemaker implantation Diabetes mellitus (A1c 6.9%) O2 dependent Hypothyroidism Dyslipidemia Insomnia Temporal arteritis (requiring prednisone) Chronic kidney disease stage III-with recent acute kidney injury Iron deficiency anemia Hypertension GERD Nephrolithiasis (history of stents) Fibromyalgia Depression Psoriasis Osteoarthritis Plan Agree with admission to IRU under the care of Dr. Dixon. Thank you for the consult. Will monitor blood sugars and adjust insulin as needed. She was given IV iron in [place]. Will follow hemoglobin. She may benefit from further iron supplementation. Follow labs periodically to follow her renal function, electrolytes and hemoglobin. Care to return to her PCP, Dr. Goodson on discharge. Hospital Course Summary Disclaimer: The visit summary below is not to be considered part of the above Progress Note. <Irvin Rucker - Last Filed: 04/16/17 22:17> Consult Information - Data of Consult Requesting Physician: Pankaj Dixon MD Primary Care Provider: Nikolas Gann MD Family Provider: Nikolas Gann MD [facility] Patient Stated Medical History Peripheral Neuropathy Yes Cataracts Yes Macular Degeneration Yes Other HEENT glasses for nearsighted Angina Yes Cardiac Arrhythmia Yes: a fib/flutter Hypertension Yes Bronchitis Yes Sleep Apnea Yes Diabetes Mellitus Type 2 Yes Constipation Yes Gastroesophageal Reflux Yes Disease Other GI Yes: IBS,hemarroids Hx Incontinence Yes Hx Urinary Tract Infection Yes Other Yes: stents after kidney stone removal ,removed Osteoarthritis Yes Other Musculoskeletal Yes: fibrymalgia Sepsis Yes Other Infectious Yes: psorasis Depression Yes Post Menopausal Yes Clinic Medical History Hip strain (Acute Medical) Atrial flutter (Chronic Medical) HTN (hypertension) (Chronic Medical) Hypothyroidism (Chronic Medical) Osteoarthritis (Chronic Medical) Hypoxia (Acute Medical) Temporal arteritis (Chronic Medical) Chest pain (Acute Medical) Hyperlipidemia (Chronic Medical) Chronic respiratory failure (Chronic Medical) Chronic 2L home O2 Atrial fibrillation with RVR (Acute Medical) Chest pain (Acute Medical) Oxygen dependent (Chronic Medical) Fibromyalgia (Chronic Medical) Chronic steroid use (Chronic Medical) Chest pain (Acute Medical) Morbid obesity (Chronic Medical) UTI due to extended-spectrum beta lactamase (ESBL) producing Escherichia coli ( Acute Medical) 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 (Resolved Medical) Diabetes mellitus type 2 in obese (Chronic Medical) Anemia (Chronic Medical) CKD (chronic kidney disease) stage 3, GFR 30-59 ml/min (Chronic Medical) Myopathy (Acute Medical) PAF (paroxysmal atrial fibrillation) (Resolved Medical) Presence of cardiac pacemaker (Chronic Medical) UTI (urinary tract infection), bacterial (Acute Medical) Dry mouth (Acute Medical) Insomnia (Acute Medical) Anemia associated with acute blood loss (Acute Medical) Abdominal hemorrhage (Acute Medical) Hypotension due to blood loss (Acute Medical) Cataracts, bilateral (Acute Medical) Diabetes 1.5, managed as type 2 (Acute Medical) Dyslipidemia (Acute Medical) Fibromyalgia (Acute Medical) Hypertension (Acute Medical) Hypothyroidism (Acute Medical) aquired Idiopathic pancreatitis (Acute Medical) Insomnia (Acute Medical) Osteoarthritis (Acute Medical) Psoriasis arthropathica (Acute Medical) AF (paroxysmal atrial fibrillation) (Resolved Medical) Contusion (Inactive Medical) Family History: Family History Father Blood clots in brain Unknown Hypertension Breast cancer Mother Breast cancer Diabetes Myocardial infarct Stroke Exam Vital Signs: Temperature 98.3 F 04/15/17 21:05 Pulse Rate 69 04/16/17 08:41 Respiratory Rate 20 04/16/17 08:00 Blood Pressure 62/34 04/16/17 08:41 Pulse Oximetry 100 04/16/17 08:00 Height/Weight/BMI: Height 4 ft 11 in Weight 158.6 kg Body Mass Index 69.0 Results - Labs CBC & Chem 7: 04/16/17 05:37 04/16/17 05:37 Microbiology Results: Microbiology 04/12/17 19:15 Urine, Voided (Cc/notcc) Urine Culture - Final Escherichia coli Escherichia coli#2 Assessment and Plan Assessment and Plan: Seen and examined patient on same day as the above note. Agree with history, physical, assessment and plan. Comprehensive physical findings correlate to the above note. Appreciation to physicians therapist's assistant Dhara Arreodndo for preceeding exam and creation of this document Documented on [employer] speech to text. Efforts to correct speech recognition errors performed, but variation may exist Hospital Course Summary Disclaimer: The visit summary below is not to be considered part of the above Progress Note.
[2017-04-10 13:59] VITALS: BMI 69.0
[2017-04-10] MEDS: HYDROCODONE/APAP 5mg/325mg TABLET PO PRN ×2 (14:11→22:11)
[2017-04-10] MEDS: LISINOPRIL 10 MG TABLET PO SCH (16:02)
[2017-04-10] MEDS: RIVAROXABAN 20 MG TABLET PO SCH (16:46)
[2017-04-10] MEDS: INSULIN DETEMIR 100unit/ml INJECTION SQ SCH (22:19)
[2017-04-11] MEDS: DiphenhydrAMINE 25 MG CAPSULE PO SCH ×6 (04:08→22:36)
[2017-04-11] MEDS: HYDROCODONE/APAP 5mg/325mg TABLET PO PRN ×4 (04:08→22:37)
[2017-04-11] MEDS: LEVOTHYROXINE 150 MCG TABLET PO SCH (06:18)
[2017-04-11] MEDS: SUCRALFATE 1 GM TABLET PO SCH ×2 (06:18→20:37)
[2017-04-11] MEDS: PANTOPRAZOLE 40 MG TABLET PO SCH (06:18)
[2017-04-11] MEDS: MULTI-VIT + MINERAL (Opti-gen) TABLET PO SCH (08:45)
[2017-04-11] MEDS: MULTI-VITAMIN + MINERAL TABLET PO SCH (08:45)
[2017-04-11] MEDS: MAGNESIUM OXIDE 400 MG TABLET PO SCH (08:45)
[2017-04-11] MEDS: DOCUSATE SODIUM 100 MG CAPSULE PO SCH ×2 (08:46→22:35)
[2017-04-11] MEDS: LISINOPRIL 10 MG TABLET PO SCH (08:46)
[2017-04-11] MEDS: PredniSONE 20 MG TABLET PO SCH (08:47)
[2017-04-11] MEDS: FERROUS SULFATE 324 MG TABLET PO SCH (08:47)
[2017-04-11] MEDS: GEMFIBROZIL 600 MG TABLET PO SCH ×2 (08:47→17:57)
[2017-04-11] MEDS: POLYETHYL GLYCOL 3350 17gm PACKET PO SCH (08:48)
[2017-04-11] MEDS: SENNOSIDES 8.6 MG TABLET PO SCH ×2 (08:48→22:36)
[2017-04-11] MEDS: INSULIN ASPART 100unit/ml INJECTION SQ SCH ×2 (10:13→18:00)
[2017-04-11] MEDS: TRAMADOL 50 MG TABLET PO PRN (10:18)
[2017-04-11] MEDS ORDERED: INSULIN ASPART 100unit/ml INJECTION SQ SCH (12:00)
[2017-04-11] MEDS: RIVAROXABAN 20 MG TABLET PO SCH (17:57)
--- NOTE | 2017-04-11 21:16 | Progress Note ---
- Date 04/11/17 Subjective: Called to floor by nursing due to hip pain. The patient has been having increased pain and is requesting use heating pad an increase of her tizanidine. Otherwise states she is doing well. No fevers chills nausea vomiting. No episodes of sensation of hypoglycemia (shakes chills feelings of impending doom) Objective Vital signs: Temperature 98.2 F 04/11/17 15:54 Pulse Rate 69 04/11/17 16:00 Respiratory Rate 12 04/11/17 15:54 Blood Pressure 134/61 04/11/17 15:54 Pulse Oximetry 93 04/11/17 15:54 Height/Weight/BMI: Height 4 ft 11 in Weight 154.9 kg Body Mass Index 69.0 - Constitutional Present: no acute distress, well nourished, well developed, morbidly obese - Routine HEENT Exam Eye: Present: EOMI ENT: Present: mucous membranes moist, dentition normal - Routine Respiratory Exam Present: CTA bilaterally. Absent: wheezes - Routine Cardiovascular Exam Present: RRR. Absent: murmur - Routine Abdominal Exam Present: soft, normoactive bowel sounds, non distended. Absent: tenderness - Routine Extremities Exam Present: edema, normal capillary refill - Routine Skin Exam Present: dry, warm - Routine Neurological Exam Present: alert, oriented X3, CN II-XII intact - Routine Lymphatic Exam Lymphatic: Absent: adenopathy - Routine Psychiatric Exam Present: normal affect Results - Labs CBC & Chem 7: 04/13/17 04:36 04/13/17 04:36 Assessment and Plan Assessment and Plan: Assessment Recent AV ablation for atrial fibrillation Status post right pacemaker implantation Diabetes mellitus (A1c 6.9%) O2 dependent Hypothyroidism Dyslipidemia Insomnia Temporal arteritis (requiring prednisone) Chronic kidney disease stage III-with recent acute kidney injury Iron deficiency anemia Hypertension GERD Nephrolithiasis (history of stents) Fibromyalgia Depression Psoriasis Osteoarthritis Plan increase the dose of tizanidine for the hip pain. I agree with the use of heating pad as well as long as the patient has enough awareness to not fall asleep on it and burn herself. She states that she has decent sensation despite her diabetes and this is in the proximal portion of the body so unlikely to suffer from peripheral neuropathy that far up the extremity. Agree with admission to IRU under the care of Dr. Dixon. Thank you for the consult. Will monitor blood sugars and adjust insulin as needed. She was given IV iron in [place]. Will follow hemoglobin. She may benefit from further iron supplementation. Follow labs periodically to follow her renal function, electrolytes and hemoglobin. Care to return to her PCP, Dr. Goodson on discharge. Hospital Course Summary Disclaimer: The visit summary below is not to be considered part of the above Progress Note.
[2017-04-11] MEDS: INSULIN DETEMIR 100unit/ml INJECTION SQ SCH (22:35)
[2017-04-12] MEDS: DiphenhydrAMINE 25 MG CAPSULE PO SCH ×3 (02:24→17:57)
[2017-04-12] MEDS: TRAMADOL 50 MG TABLET PO PRN (02:24)
[2017-04-12] MEDS: SUCRALFATE 1 GM TABLET PO SCH ×2 (05:48→20:08)
[2017-04-12] MEDS: LEVOTHYROXINE 150 MCG TABLET PO SCH (05:48)
[2017-04-12] MEDS: PANTOPRAZOLE 40 MG TABLET PO SCH (05:48)
[2017-04-12] MEDS: LISINOPRIL 10 MG TABLET PO SCH (08:53)
[2017-04-12] MEDS: MULTI-VIT + MINERAL (Opti-gen) TABLET PO SCH (08:53)
[2017-04-12] MEDS: FERROUS SULFATE 324 MG TABLET PO SCH (08:53)
[2017-04-12] MEDS: DOCUSATE SODIUM 100 MG CAPSULE PO SCH ×2 (08:53→20:09)
[2017-04-12] MEDS: MULTI-VITAMIN + MINERAL TABLET PO SCH (08:53)
[2017-04-12] MEDS: SENNOSIDES 8.6 MG TABLET PO SCH ×2 (08:53→20:09)
[2017-04-12] MEDS: PredniSONE 20 MG TABLET PO SCH (08:54)
[2017-04-12] MEDS: MAGNESIUM OXIDE 400 MG TABLET PO SCH (08:54)
[2017-04-12] MEDS: GEMFIBROZIL 600 MG TABLET PO SCH ×2 (08:54→17:56)
[2017-04-12] MEDS: INSULIN ASPART 100unit/ml INJECTION SQ SCH ×3 (08:55→17:57)
[2017-04-12] MEDS: POLYETHYL GLYCOL 3350 17gm PACKET PO SCH (08:56)
[2017-04-12] MEDS: HYDROCODONE/APAP 5mg/325mg TABLET PO PRN ×2 (13:54→20:09)
--- NOTE | 2017-04-12 14:39 | IRU Plan of Care ---
[facility] Plan of Care - Date Date: 04/12/17 - Patient Impairments (1) PAF (paroxysmal atrial fibrillation) Code(s): I48.0 - Paroxysmal atrial fibrillation Status: Acute Classification: Diagnosis Requiring Medical Follow Up (2) HTN (hypertension) Qualifiers: Hypertension type: essential hypertension Qualified Code(s): I10 - Essential (primary) hypertension Code(s): I10 - Essential (primary) hypertension Status: Chronic Classification: Present on IRF Admission, Diagnosis Requiring Medical Follow Up (3) Hyperlipidemia Qualifiers: Hyperlipidemia type: mixed hyperlipidemia Qualified Code(s): E78.2 - Mixed hyperlipidemia Code(s): E78.5 - Hyperlipidemia, unspecified Status: Chronic Classification: Present on IRF Admission, Diagnosis Requiring Medical Follow Up (4) Diabetes mellitus type 2 in obese Code(s): E11.69 - Type 2 diabetes mellitus with other specified complication; E66.9 - Obesity, unspecified Status: Chronic Classification: Present on IRF Admission, IRF Tx That Should Address Diagnosis, Diagnosis Requiring Medical Follow Up (5) Presence of cardiac pacemaker Code(s): Z95.0 - Presence of cardiac pacemaker Status: Acute Classification: Present on IRF Admission, IRF Tx That Should Address Diagnosis, Diagnosis Requiring Medical Follow Up - Relevant Changes Relevant Changes: No Reviewed: I have reviewed the patient's information and concur with the finding and results of the pre-admission screen. Certification: I certify the patient for rehabilitation. - Medical Prognosis Medical Prognosis: Good Vital Signs: Last Vital Signs Temp 98 F 04/12/17 08:00 Pulse 78 04/12/17 08:00 Resp 16 04/12/17 08:00 BP 133/65 04/12/17 08:00 Pulse Ox 92 04/12/17 08:00 - Anticipated Interventions Anticipated Interventions: The patient requires inpatient IRF care for PT, OT, and/or ST for residuals remaining from recent ablation of AV node and placement of pacemaker with recent lead dislodgement, atrial fibrillation recently resulting in muscular weakness and strength deficits. ROM Deficit: Left Upper Extremity ROM Comment: Reduced movement of left upper extremity due to recent pacemaker placement. - Current Functional Status Failed Alternative Therapy: Arrived from Acute Care Patient Requires: The patient requires oversight by rehabilitation physician to manage their rehabilitation treatment plan and multidisciplinary approach to care that can only be provided in an IRF and requires a multidisciplinary approach to care, provided by professional PTs, OTs, STs, rehabilitation nurses, and may require STs, dieticians, and RTS. This is not available in lesser levels of care. Physical Therapy Minutes: 90 Occupational Therapy Minutes: 90 Therapy: The patient is to receive therapy at least 5 days a week. - Anticipated LOS/Outcomes Anticipated Functional Outcome: it is anticipated the patient will be able to improve ADL function to modified independent level, as well as to perform safe transfers to and from her motorized wheelchair and be able to return to her previous living situation. Anticipated Length of Stay (days): 7 Anticipated DC Destination: Home, Self Care, Home Health Service Home Safety Plan: The patient will be provided with the development of a Home Safety Plan for return to a home or home-like environment and and to ensure safety post discharge. - Plan to Avoid Complications Barriers to Attaining Goals: Weakness, Endurance, Medical Limitation Plan to Avoid Complications: The patient cannot receive this care in a lesser intensive setting such as Detention or Outpatient Therapy due to the patient requiring the following : close monitoring of cardiac rhythm in view of recent pacemaker placement, AV reena ablation and subsequent dislodgment of right ventricular lead, close monitoring of vital signs to avoid hypotension, monitoring of blood sugars .
--- NOTE | 2017-04-12 16:12 | Progress Note ---
<Deena Velez - Last Filed: 04/12/17 16:09> - Date 04/12/17 Subjective: Juliann is seen in follow up. Reports that she is feeling fairly well. Would like to start some gentle exercises on her left arm. She knows that there will be restrictions due to recent PPM place. Reports that she fell and injured her left shoulder prior to the PPM insertion, so is quite sore. She does have some pain, but is fairly well controlled. Chart is reviewed for collateral information- she is on Prednisone 40mg, and has been on that for several months for temporal arteritis. Objective Vital signs: Temperature 98.1 F 04/12/17 15:26 Pulse Rate 70 04/12/17 15:26 Respiratory Rate 18 04/12/17 15:26 Blood Pressure 124/66 04/12/17 15:26 Pulse Oximetry 96 04/12/17 15:26 Height/Weight/BMI: Height 1.5 m Weight 154.9 kg Body Mass Index 69.0 - Constitutional Present: no acute distress, morbidly obese - Routine HEENT Exam Head: Present: normocephalic, atraumatic, cushingoid faces Eye: Present: EOMI, PERRL, normal accommodation ENT: Present: mucous membranes moist - Routine Respiratory Exam Present: decreased breath sounds, CTA bilaterally, diminished air movement (Due to severe morbid obesity. ) - Routine Cardiovascular Exam Present: RRR, S1, S2, no murmur - Routine Abdominal Exam Present: soft, normoactive bowel sounds, non distended, non tender - Routine Extremities Exam Present: edema (Generalized vs. severe obesity. ) - Routine Musculoskeletal Exam Musculoskeletal: Present: normal strength, limited range of motion (Left shoulder. ), surgical scar (healing well. ) - Routine Skin Exam Present: intact, dry, warm - Routine Neurological Exam Present: alert, moving all extremities, normal tone - Routine Psychiatric Exam Present: normal affect, cooperative, good insight, good judgment Results - Labs CBC & Chem 7: 04/11/17 03:55 04/11/17 03:55 Assessment and Plan (1) 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 Current visit: Yes Status: Resolved (2) PAF (paroxysmal atrial fibrillation) Current visit: Yes Status: Chronic (3) CKD (chronic kidney disease) stage 3, GFR 30-59 ml/min Current visit: Yes Status: Chronic (4) Diabetes mellitus type 2 in obese Current visit: Yes Status: Chronic (5) Chronic steroid use Current visit: No Status: Chronic (6) Fibromyalgia Current visit: No Status: Chronic (7) HTN (hypertension) Current visit: No Status: Chronic (8) Hyperlipidemia Current visit: No Status: Chronic (9) Hypothyroidism Current visit: No Status: Chronic (10) Morbid obesity Current visit: No Status: Chronic (11) Temporal arteritis Current visit: No Status: Chronic (12) Presence of cardiac pacemaker Current visit: Yes Status: Chronic Assessment and Plan: Assessment Recent AV ablation for atrial fibrillation Status post right pacemaker implantation Diabetes mellitus (A1c 6.9%) O2 dependent Hypothyroidism Dyslipidemia Insomnia Temporal arteritis (requiring prednisone) Chronic kidney disease stage III-with recent acute kidney injury Iron deficiency anemia s/p IV iron Hypertension GERD Nephrolithiasis (history of stents) Fibromyalgia Depression Psoriasis Osteoarthritis Plan 04/12/17 Continue supportive care. S/P PPM-recent. Continue CCB, Xarelto. High risk for HF given severity of obesity. Monitor need for diuretics. Recent ESBL UTI- assess UA. Continue to monitor labs closely. On extended steroids for temporal arteritis- will decrease to 30mg PO daily for now. Will need slow taper plan moving forward. Monitor for recurrent of sx. Monitor insulin/BG as steroids are weaned. Continue O2. Continue PT/OT per primary team. Will continue to follow. DVT Prophylaxis: Xarelto GI Prophylaxis: Protonix Resuscitation Status: Full Code Hospital Course Summary Disclaimer: The visit summary below is not to be considered part of the above Progress Note. Hospital Course: 04/12/17 16:16 04/12/17 Continue supportive care. S/P PPM-recent. Continue CCB, Xarelto. High risk for HF given severity of obesity. Monitor need for diuretics. Recent ESBL UTI- assess UA. Continue to monitor labs closely. On extended steroids for temporal arteritis- will decrease to 30mg PO daily for now. Will need slow taper plan moving forward. Monitor for recurrent of sx. Monitor insulin/BG as steroids are weaned. Continue O2. Continue PT/OT per primary team. Will continue to follow. <Irvin Rucker P - Last Filed: 04/13/17 18:21> - Date 04/13/17 Objective Vital signs: Temperature 98.1 F 04/13/17 16:00 Pulse Rate 69 04/13/17 16:00 Respiratory Rate 16 04/13/17 16:00 Blood Pressure 132/51 04/13/17 16:00 Pulse Oximetry 91 04/13/17 16:00 Height/Weight/BMI: Height 4 ft 11 in Weight 154.9 kg Body Mass Index 69.0 Results - Labs CBC & Chem 7: 04/13/17 04:36 04/13/17 04:36 Microbiology Results: Microbiology 04/12/17 19:15 Urine, Voided (Cc/notcc) Urine Culture - Preliminary Gram Negative Francois Assessment and Plan (1) HTN (hypertension) Current visit: No Status: Chronic (2) Hypothyroidism Current visit: No Status: Chronic (3) Temporal arteritis Current visit: No Status: Chronic (4) Hyperlipidemia Current visit: No Status: Chronic (5) Fibromyalgia Current visit: No Status: Chronic (6) Chronic steroid use Current visit: No Status: Chronic (7) Morbid obesity Current visit: No Status: Chronic (8) 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 Agree with history, physical, assessment and plan. Comprehensive physical findings correlate to the above note. Call by nursing regarding a postprandial insulin of less than 200. Decline to use a single unit on sliding scale that was indicated. Will received nightly dose of Lantus. Documented on Dragon speech to text. Efforts to crack speech recognition errors performed, but variation may exist Hospital Course Summary Disclaimer: The visit summary below is not to be considered part of the above Progress Note.
[2017-04-12] MEDS: RIVAROXABAN 20 MG TABLET PO SCH (17:57)
[2017-04-12] MEDS: INSULIN DETEMIR 100unit/ml INJECTION SQ SCH (21:51)
[2017-04-12] MEDS ORDERED: FOSFOMYCIN 3 GRAM PACKET PO ONE (23:57)
[2017-04-13] MEDS: TRAMADOL 50 MG TABLET PO PRN ×2 (01:51→14:06)
[2017-04-13] MEDS: DiphenhydrAMINE 25 MG CAPSULE PO SCH ×5 (01:51→22:06)
[2017-04-13] MEDS: LEVOTHYROXINE 150 MCG TABLET PO SCH (05:49)
[2017-04-13] MEDS: GEMFIBROZIL 600 MG TABLET PO SCH ×2 (05:49→17:58)
[2017-04-13] MEDS: SUCRALFATE 1 GM TABLET PO SCH ×2 (05:49→22:05)
[2017-04-13] MEDS: PANTOPRAZOLE 40 MG TABLET PO SCH (05:50)
[2017-04-13] MEDS: FERROUS SULFATE 324 MG TABLET PO SCH (08:34)
[2017-04-13] MEDS: PredniSONE 10 MG TABLET PO SCH (08:34)
[2017-04-13] MEDS: LISINOPRIL 10 MG TABLET PO SCH (08:35)
[2017-04-13] MEDS: POLYETHYL GLYCOL 3350 17gm PACKET PO SCH (08:36)
[2017-04-13] MEDS: DOCUSATE SODIUM 100 MG CAPSULE PO SCH ×2 (08:36→22:06)
[2017-04-13] MEDS: MULTI-VIT + MINERAL (Opti-gen) TABLET PO SCH (08:36)
[2017-04-13] MEDS: MAGNESIUM OXIDE 400 MG TABLET PO SCH (08:36)
[2017-04-13] MEDS: SENNOSIDES 8.6 MG TABLET PO SCH ×2 (08:37→22:06)
[2017-04-13] MEDS: INSULIN ASPART 100unit/ml INJECTION SQ SCH ×3 (08:43→17:57)
[2017-04-13] MEDS: HYDROCODONE/APAP 5mg/325mg TABLET PO PRN ×4 (08:43→22:09)
[2017-04-13] MEDS: MULTI-VITAMIN + MINERAL TABLET PO SCH (08:44)
[2017-04-13] MEDS: INSULIN ASPART 100unit/ml INJECTION SQ PRN ×2 (11:04→14:26)
--- NOTE | 2017-04-13 11:42 | IRU Progress Note ---
- Subjective/Serverity of Illness Juliann was evaluated in her room on the inpatient rehabilitation unit. Therapist had just worked with her in transferring from supine to sit position in the bed. She was quite short of breath. She obviously has significant deconditioning. She continues in a regular rhythm. She is status post AV reena ablation and now has a permanent pacemaker in place. Denies any lightheadedness. Update on medical issues requiring active monitoring and management: 1. Diabetes mellitus with evidence of insulin resistance on fairly high doses of insulin: Her blood sugars are reviewed. No hypoglycemia noted. Many of them are a bit over 200. Hospitalists are following. 2. Recent acute kidney injury superimposed upon chronic kidney disease: Follow- up creatinine has been 1.2-1.3. 3. Recent AV ablation with permanent pacemaker placement and dislodgment of right ventricular lead. She denies any lightheadedness. There is been no evidence of heart block at this point. 4. Anemia with evidence of iron deficiency. Hemoglobin is reviewed and is stable but low. 5. Temporal arteritis on moderately high doses of chronic prednisone: She continues on prednisone 40 mg daily. Exam Vital Signs: Temperature 97 F 04/13/17 08:00 Pulse Rate 75 04/13/17 08:00 Respiratory Rate 16 04/13/17 08:00 Blood Pressure 120/62 04/13/17 08:00 Pulse Oximetry 95 04/13/17 08:00 Height/Weight/BMI: Height 1.5 m Weight 154.9 kg Body Mass Index 69.0 Comments: The patient is awake, alert and oriented. She is quite dyspneic at the present time after having exerted herself from transferring. Pupils are equal. The neck is supple. Chest: Clear to auscultation bilaterally. Cor: RR with no gallop, click nor murmur Abd: soft with normo-active bowel sounds. There are no masses, no tenderness and no guarding. Extremities: No edema is noted. No cyanosis is present. The patient's wound in the left infraclavicular area from the pacemaker is clean and dry and without inflammation. Results IRU - Labs Labs: I reviewed labs including blood sugars/fingerstick blood sugars. IRU A/P (1) PAF (paroxysmal atrial fibrillation) Current visit: Yes Status: Resolved This is resolved on the basis of AV reena ablation. Has had no recurrence. She has a permanent pacemaker in place. (2) HTN (hypertension) Qualifiers: Hypertension type: essential hypertension Qualified Code(s): I10 - Essential (primary) hypertension Current visit: No Status: Chronic Her blood pressures are well controlled at the present time. She denies any lightheadedness. (3) Hyperlipidemia Qualifiers: Hyperlipidemia type: mixed hyperlipidemia Qualified Code(s): E78.2 - Mixed hyperlipidemia Current visit: No Status: Chronic (4) Diabetes mellitus type 2 in obese Current visit: Yes Status: Chronic Her blood sugars are reviewed. She is on fairly high doses of insulin. Her sugars are over 200 occasionally. She does have morbid obesity. She is also on chronic prednisone 40 mg daily for temporal arteritis and no doubt this is impacting her blood sugar control as well. (5) Presence of cardiac pacemaker Current visit: Yes Status: Chronic Pacemaker appears to be functioning normally. Cardiology has been consulted and is monitoring. Telemetry will be reviewed. DVT Prophylaxis: Xarelto Resuscitation Status: Full Code - Course Hospital Course: Pankaj Dixon MD: 04/13/17 11:44 She has substantial deconditioning. She is short of breath with transfers. She is improving with therapy. Cardiac status appears to be stable at present and we will review the strips. No evidence of wound infection. Her blood sugars are borderline elevated. - Interventions to Obtain Goals PT Treatment Plan: Balance/Proprioception, Functional Activities, Gait Training , Therapeutic Exercise OT Treatment Plan: ADL (Basic Care), Balance Training, IADL, Pt./Family Education, Ther. Exercise for ADL Goals Progress/Modifications: Time spent with patient and on floor reviewing data and documentin min Barriers to dismissal: Endurance, balance, safety Medical decision-making: I reviewed her overall status and her ability to tolerate therapy. She is stable for continuing physical therapy and occupational therapy. She continues to require 24 rehabilitation nursing monitoring of her blood sugars and oxygen saturations in view of her chronic use of oxygen. She gets quite short of breath with any activity. However her lungs appear to be clear and I think this is primarily a deconditioning issue. In addition, we are monitoring her rhythm in view of the recent lead displacement. Appears to be stable in this regard and we will review the telemetry strips.
--- NOTE | 2017-04-13 13:06 | Progress Note ---
<Nikki Phipps Mahamed - Last Filed: 04/13/17 13:00> - Date 04/13/17 Subjective: Juliann is seen today in follow up for her recent COPD exacerbation and current dysuria. She admits to burning with urination which she states is new today. Her urine was noted to be very cloudy yesterday by nursing which initiated the request for a UA. UA revealed 10-20 RBC, 30-50 WBC, 3+ bacteria and 5-10 epithelial cells. Culture revealed gram negative rods. She has a history of ESBL E. Coli from a culture done on 02/13/17. She reports that she has chronically been on Keflex twice a day per her PCP but appears to not have been receiving it since her admission. Review of the prior sensitivities from the culture on 02/13 indicated resistance to Keflex. She denies any known fevers, chills, nausea, vomiting or abdominal pain. No chest pain or increased shortness of breath. Labs today revealed persistent leukocytosis which appears to be trending down at 11.5. Also persistent anemia. BMP revealed hyperkalemia with potassium 5.1 and elevation in her SCr and BUN at 1.3 and 60. BGMs have been elevated, primarily greater than 200. She admits to some diarrhea but believes it is secondary to too many stool softeners as she was previously constipated. Her appetite remains stable. Objective Vital signs: Temperature 97 F 04/13/17 08:00 Pulse Rate 75 04/13/17 08:00 Respiratory Rate 16 04/13/17 08:00 Blood Pressure 120/62 04/13/17 08:00 Pulse Oximetry 95 04/13/17 08:00 Height/Weight/BMI: Height 4 ft 11 in Weight 341 lb 7.936 oz Body Mass Index 69.0 - Constitutional Present: no acute distress, well nourished, well developed, obese, cooperative - Routine HEENT Exam Head: Present: normocephalic, atraumatic Eye: Present: PERRL. Absent: conjunctival icterus ENT: Present: mucous membranes moist - Routine Respiratory Exam Present: decreased breath sounds. Absent: rhonchi, wheezes Comments: no respiratory distress; stable on 2L NC. - Routine Cardiovascular Exam Present: RRR, S1, S2 - Routine Abdominal Exam Present: soft, normoactive bowel sounds, non tender Comments: obese. - Routine Extremities Exam Present: edema (trace), non tender, pulses intact - Routine Back/Spine/Pelvis Exam Back/Spine: Present: full ROM - Routine Musculoskeletal Exam Musculoskeletal: Present: moving extremities well - Routine Skin Exam Present: intact, dry, warm. Absent: jaundice Comments: afebrile. - Routine Neurological Exam Present: alert, oriented X3, moving all extremities, normal speech - Routine Lymphatic Exam Lymphatic: Absent: lymphedema - Routine Psychiatric Exam Present: normal affect, cooperative Results - Labs CBC & Chem 7: 04/13/17 04:36 04/13/17 04:36 Microbiology Results: Microbiology 04/12/17 19:15 Urine, Voided (Cc/notcc) Urine Culture - Preliminary Gram Negative Francois Assessment and Plan (1) HTN (hypertension) Current visit: No Status: Chronic (2) Hypothyroidism Current visit: No Status: Chronic (3) Temporal arteritis Current visit: No Status: Chronic (4) Hyperlipidemia Current visit: No Status: Chronic (5) Fibromyalgia Current visit: No Status: Chronic (6) Chronic steroid use Current visit: No Status: Chronic (7) Morbid obesity Current visit: No Status: Chronic (8) 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 Current visit: Yes Status: Resolved (9) Diabetes mellitus type 2 in obese Current visit: Yes Status: Chronic (10) CKD (chronic kidney disease) stage 3, GFR 30-59 ml/min Current visit: Yes Status: Chronic (11) PAF (paroxysmal atrial fibrillation) Current visit: Yes Status: Resolved (12) Presence of cardiac pacemaker Current visit: Yes Status: Chronic Assessment and Plan: Assessment Recent AV ablation for atrial fibrillation Status post right pacemaker implantation Diabetes mellitus (A1c 6.9%) O2 dependent Hypothyroidism Dyslipidemia Insomnia Temporal arteritis (requiring prednisone) Chronic kidney disease stage III-with recent acute kidney injury Iron deficiency anemia s/p IV iron Hypertension GERD Nephrolithiasis (history of stents) Fibromyalgia Depression Psoriasis Osteoarthritis Plan-04/13/17 (Mirakian). Overall, Juliann appears to be making gains. New complaint of dysuria and burning with urination. UA reveals gram negative rods. She has a history of ESBL and reports that she was previously on prophylactic Keflex BID per her PCP. She is not currently on Keflex. Discussed case with Dr. Koch (infectious disease) who recommended treatment with meropenem or fosfomycin 3g one time dose. She discouraged prophylactic treatment especially given the patient's prior sensitivities were resistant to cephalosporins. Patient was given fosfomycin 3g po x 1 dose on 04/12 around midnight. Will continue to monitor symptoms closely. Patient remains afebrile. Continue supportive care and continue to encourage participation in therapies. High risk for HF given severity of obesity. Monitor need for diuretics. Monitor daily weights for signs of fluid overload as well as respiratory function. On extended steroids for temporal arteritis- will decrease to 30mg PO daily on 04/12/17. Will need slow taper plan moving forward. Monitor for recurrent of symptoms. Monitor insulin/BG as steroids are weaned. Blood sugars have been elevated >200 average. Will add sliding scale insulin and continue to monitor closely. Hesitant in adjusting insulins given current UTI and weaning of steroids. Will recheck labs in AM to monitor blood counts, electrolytes and renal function. In light of elevated renal function as well as mild hyperkalemia, will give IV bolus 500cc NS now. Encourage fluid intake. Diarrhea yesterday and today. Patient believes it is related to too many stool softeners. Will check GI panel given recent antibiotic use. Discussed with patient her ability to refuse stool softeners if she feels she does not need them. She feels comfortable with treatment plan. DVT Prophylaxis: Xarelto Resuscitation Status: Full Code - Time spent with patient Time with patient PN: 35 minutes Hospital Course Summary Disclaimer: The visit summary below is not to be considered part of the above Progress Note. Hospital Course: 04/12/17 16:16 04/12/17 Continue supportive care. S/P PPM-recent. Continue CCB, Xarelto. High risk for HF given severity of obesity. Monitor need for diuretics. Recent ESBL UTI- assess UA. Continue to monitor labs closely. On extended steroids for temporal arteritis- will decrease to 30mg PO daily for now. Will need slow taper plan moving forward. Monitor for recurrent of sx. Monitor insulin/BG as steroids are weaned. Continue O2. Continue PT/OT per primary team. Will continue to follow. Plan-04/13/17 (Mirakian). Overall, Juliann appears to be making gains. New complaint of dysuria and burning with urination. UA reveals gram negative rods. She has a history of ESBL and reports that she was previously on prophylactic Keflex BID per her PCP. She is not currently on Keflex. Discussed case with Dr. Koch (infectious disease) who recommended treatment with meropenem or fosfomycin 3g one time dose. She discouraged prophylactic treatment especially given the patient's prior sensitivities were resistant to cephalosporins. Patient was given fosfomycin 3g po x 1 dose on 04/12 around midnight. Will continue to monitor symptoms closely. Patient remains afebrile. Continue supportive care and continue to encourage participation in therapies. High risk for HF given severity of obesity. Monitor need for diuretics. Monitor daily weights for signs of fluid overload as well as respiratory function. On extended steroids for temporal arteritis- will decrease to 30mg PO daily on 04/12/17. Will need slow taper plan moving forward. Monitor for recurrent of symptoms. Monitor insulin/BG as steroids are weaned. Blood sugars have been elevated >200 average. Will add sliding scale insulin and continue to monitor closely. Hesitant in adjusting insulins given current UTI and weaning of steroids. Will recheck labs in AM to monitor blood counts, electrolytes and renal function. In light of elevated renal function as well as mild hyperkalemia, will give IV bolus 500cc NS now. Encourage fluid intake. Diarrhea yesterday and today. Patient believes it is related to too many stool softeners. Will check GI panel given recent antibiotic use. Discussed with patient her ability to refuse stool softeners if she feels she does not need them. She feels comfortable with treatment plan. <Irvin Rucker P - Last Filed: 04/13/17 17:36> - Date 04/13/17 Objective Vital signs: Temperature 98.1 F 04/13/17 16:00 Pulse Rate 69 04/13/17 16:00 Respiratory Rate 16 04/13/17 16:00 Blood Pressure 132/51 04/13/17 16:00 Pulse Oximetry 91 04/13/17 16:00 Height/Weight/BMI: Height 4 ft 11 in Weight 154.9 kg Body Mass Index 69.0 Results - Labs CBC & Chem 7: 04/13/17 04:36 04/13/17 04:36 Microbiology Results: Microbiology 04/12/17 19:15 Urine, Voided (Cc/notcc) Urine Culture - Preliminary Gram Negative Francois Assessment and Plan (1) HTN (hypertension) Current visit: No Status: Chronic (2) Hypothyroidism Current visit: No Status: Chronic (3) Temporal arteritis Current visit: No Status: Chronic (4) Hyperlipidemia Current visit: No Status: Chronic (5) Fibromyalgia Current visit: No Status: Chronic (6) Chronic steroid use Current visit: No Status: Chronic (7) Morbid obesity Current visit: No Status: Chronic (8) 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 Agree with history, physical, assessment and plan. Comprehensive physical findings correlate to the above note. Will follow the urine results after the fosfomycin Documented on Dragon speech to text. Efforts to crack speech recognition errors performed, but variation may exist Hospital Course Summary Disclaimer: The visit summary below is not to be considered part of the above Progress Note.
--- NOTE | 2017-04-13 13:51 | Cardiology Progress Note ---
<Isabel Claros - Last Filed: 04/14/17 08:58> Subjective Principal diagnosis: S/P PPM Interval history: Juliann is seen in follow up, status post PPM on 04/03/17. She is in the dinning room for supper and reports she gets to finally take a shower tomorrow. She denies chest pain, palpitations or dyspnea, she remains on 2L/NC. Exam Vital signs: Temperature 97 F 04/13/17 08:00 Pulse Rate 75 04/13/17 08:00 Respiratory Rate 16 04/13/17 08:00 Blood Pressure 120/62 04/13/17 08:00 Pulse Oximetry 95 04/13/17 08:00 - Constitutional no acute distress, morbidly obese, cooperative - Routine HEENT Exam Head: Present: normocephalic ENT: Present: mucous membranes moist - Routine Neck Exam Absent: JVD, carotid bruit - Routine Chest/Breast/Axilla Exam Chest wall: Present: pacemaker. Absent: tenderness - Routine Respiratory Exam Present: CTA bilaterally. Absent: rales, wheezes - Routine Cardiovascular Exam Present: RRR, S1, S2, no murmur - Routine Abdominal Exam Present: soft, normoactive bowel sounds - Routine Extremities Exam Present: edema - Routine Skin Exam Present: intact, dry, warm - Routine Neurological Exam Present: alert, oriented X3 - Routine Psychiatric Exam Present: normal affect, normal thought process - Additional findings Additional findings: Laboratory Results - last 24 hr 04/12/17 04/12/17 04/12/17 14:08 19:15 21:39 WBC RBC Hgb Hct MCV MCH MCHC RDW Std Deviation Plt Count MPV Immature Gran % (Auto) Neut % (Auto) Lymph % (Auto) [place] % (Auto) Eos % (Auto) Baso % (Auto) Neut # (Auto) Lymph # (Auto) [place] # (Auto) Eos # (Auto) Baso # (Auto) Abs Immat Gran (auto) Neutrophils % (Manual) Band Neutrophils % Lymphocytes % (Manual) Monocytes % (Manual) Neutrophils # (Manual) Band Neutrophils # Lymphocytes # (Manual) Monocytes # (Manual) Poikilocytosis Anisocytosis RBC Morph Comment Turbidity Sodium Potassium Chloride Carbon Dioxide Anion Gap BUN Creatinine GFR Calculation BUN/Creatinine Ratio Glucose Glucometer 217 211 Calculated Osmolality Calcium Icterus Index Specimen Hemolysis Ur Collection Type Urine, clean catch Urine Color Yellow Urine Clarity Sl cloudy Urine pH 5.0 Ur Specific [place] 1.020 Urine Protein Negative Urine Glucose (UA) Negative Urine Ketones Negative Urine Occult Blood 3+ A Urine Nitrate Negative Urine Bilirubin Negative Urine Urobilinogen 0.2 Ur Leukocyte Esterase 3+ A Urine RBC 10-20 H Urine WBC 30-50 H Ur Squamous Epith Cells 5-10 Urine Bacteria 3+ H Ur Culture Indicated? Cult reflexed &setup 04/13/17 04/13/17 04/13/17 04:36 04:36 05:53 WBC 11.5 H RBC 3.30 L Hgb 9.3 L Hct 31.5 L MCV 95.5 MCH 28.2 MCHC 29.5 L RDW Std Deviation 55.6 H Plt Count 356 MPV 9.0 L Immature Gran % (Auto) Not performed Neut % (Auto) Not performed Lymph % (Auto) Not performed [place] % (Auto) Not performed Eos % (Auto) Not performed Baso % (Auto) Not performed Neut # (Auto) Not performed Lymph # (Auto) Not performed [place] # (Auto) Not performed Eos # (Auto) Not performed Baso # (Auto) Not performed Abs Immat Gran (auto) Not performed Neutrophils % (Manual) 85.0 H Band Neutrophils % 2.0 Lymphocytes % (Manual) 10.0 L Monocytes % (Manual) 3.0 Neutrophils # (Manual) 9.8 H Band Neutrophils # 0.2 Lymphocytes # (Manual) 1.2 Monocytes # (Manual) 0.3 Poikilocytosis 1+ Anisocytosis 2+ RBC Morph Comment Abnormal Turbidity < 20 Sodium 142 Potassium 5.1 H Chloride 107 Carbon Dioxide 26 Anion Gap 9 BUN 60.0 H* Creatinine 1.3 H D GFR Calculation 40 BUN/Creatinine Ratio 46 H Glucose 122 H Glucometer 121 Calculated Osmolality 291 H Calcium 9.4 Icterus Index < 2 Specimen Hemolysis < 15 Ur Collection Type Urine Color Urine Clarity Urine pH Ur Specific [place] Urine Protein Urine Glucose (UA) Urine Ketones Urine Occult Blood Urine Nitrate Urine Bilirubin Urine Urobilinogen Ur Leukocyte Esterase Urine RBC Urine WBC Ur Squamous Epith Cells Urine Bacteria Ur Culture Indicated? 04/13/17 10:05 WBC RBC Hgb Hct MCV MCH MCHC RDW Std Deviation Plt Count MPV Immature Gran % (Auto) Neut % (Auto) Lymph % (Auto) [place] % (Auto) Eos % (Auto) Baso % (Auto) Neut # (Auto) Lymph # (Auto) [place] # (Auto) Eos # (Auto) Baso # (Auto) Abs Immat Gran (auto) Neutrophils % (Manual) Band Neutrophils % Lymphocytes % (Manual) Monocytes % (Manual) Neutrophils # (Manual) Band Neutrophils # Lymphocytes # (Manual) Monocytes # (Manual) Poikilocytosis Anisocytosis RBC Morph Comment Turbidity Sodium Potassium Chloride Carbon Dioxide Anion Gap BUN Creatinine GFR Calculation BUN/Creatinine Ratio Glucose Glucometer 172 Calculated Osmolality Calcium Icterus Index Specimen Hemolysis Ur Collection Type Urine Color Urine Clarity Urine pH Ur Specific [place] Urine Protein Urine Glucose (UA) Urine Ketones Urine Occult Blood Urine Nitrate Urine Bilirubin Urine Urobilinogen Ur Leukocyte Esterase Urine RBC Urine WBC Ur Squamous Epith Cells Urine Bacteria Ur Culture Indicated? Hydrocodone Bitart/Acetaminophen ([place] 5/325) 1 tab PO Q4H PRN PRN Reason: Pain Last Admin: 04/13/17 12:23 Dose: 1 tab Cholecalciferol (Vit. D-3) 1,000 unit PO DAILY [facility] Last Admin: 04/13/17 08:35 Dose: 1,000 unit Diltiazem HCl (Cardizem Cd) 240 mg PO BID [facility] Last Admin: 04/13/17 08:35 Dose: 240 mg Diphenhydramine HCl (Benadryl) 25 mg PO Q8HR [facility] Last Admin: 04/13/17 08:35 Dose: 25 mg Docusate Sodium (Colace) 100 mg PO BID [facility] Last Admin: 04/13/17 08:36 Dose: Not Given Ferrous Sulfate (Feosol) 324 mg PO WB [facility] Last Admin: 04/13/17 08:34 Dose: 324 mg Gemfibrozil (Lopid) 600 mg PO [id number] [facility] Sodium Chloride (Normal Saline) 500 mls @ 250 mls/hr IV .Q2H [facility] Stop: 04/13/17 15:29 Insulin Aspart (Novolog) 15 unit SQ ONE TIME [facility] Last Admin: 04/11/17 12:23 Dose: 15 unit Insulin Aspart (Novolog) 30 unit SQ TIDWM [facility] Last Admin: 04/13/17 12:20 Dose: 30 unit Insulin Aspart (Novolog) 0 unit SQ SS PRN; Protocol PRN Reason: Hyperglycemia Last Admin: 04/13/17 11:04 Dose: 1 unit Insulin Detemir (Levemir) 45 unit SQ HS [facility] Last Admin: 04/12/17 21:51 Dose: 45 unit Levothyroxine Sodium (Synthroid) 150 mcg PO ACB [facility] Last Admin: 04/13/17 05:49 Dose: 150 mcg Lisinopril (Prinivil) 10 mg PO DAILY [facility] Last Admin: 04/13/17 08:35 Dose: 10 mg Magnesium Oxide (Magox) 400 mg PO DAILY [facility] Last Admin: 04/13/17 08:36 Dose: 400 mg Multivitamins/Minerals (Therapeutic - M) 1 tab PO DAILY [facility] Last Admin: 04/13/17 08:44 Dose: 1 tab Multivitamins/Minerals (Vision) 1 tab PO DAILY [facility] Last Admin: 04/13/17 08:36 Dose: 1 tab Nitroglycerin (Nitrostat) 0.4 mg SL Q5MIN3 PRN PRN Reason: Chest pain Pantoprazole Sodium (Protonix Tab) 40 mg PO ACB [facility] Last Admin: 04/13/17 05:50 Dose: 40 mg Polyethylene Glycol (Miralax) 17 gm PO DAILY [facility] Last Admin: 04/13/17 08:36 Dose: Not Given Prednisone (Deltasone) 30 mg PO WB [facility] Last Admin: 04/13/17 08:34 Dose: 30 mg Rivaroxaban (Xarelto) 20 mg PO WS [facility] Last Admin: 04/12/17 17:57 Dose: 20 mg Senna (Senna Lax) 8.6 mg PO BID [facility] Last Admin: 04/13/17 08:37 Dose: Not Given Sucralfate (Carafate) 1 gm PO BID/E [facility] Last Admin: 04/13/17 05:49 Dose: 1 gm Tizanidine HCl (Zanaflex) 4 mg PO Q8H PRN Tramadol HCl (Ultram) 50 mg PO Q6HR PRN PRN Reason: Pain Last Admin: 04/13/17 01:51 Dose: 50 mg Assessment and Plan - Assessment and Plan (1) PAF (paroxysmal atrial fibrillation) Current visit: Yes Status: Resolved (2) HTN (hypertension) Current visit: No Status: Chronic (3) Hyperlipidemia Current visit: No Status: Chronic (4) Diabetes mellitus type 2 in obese Current visit: Yes Status: Chronic (5) Presence of cardiac pacemaker Current visit: Yes Status: Chronic Hospital Course Summary Disclaimer: The visit summary below is not to be considered part of the above Progress Note. Hospital Course: 04/12/17 16:16 04/12/17 Continue supportive care. S/P PPM-recent. Continue CCB, Xarelto. High risk for HF given severity of obesity. Monitor need for diuretics. Recent ESBL UTI- assess UA. Continue to monitor labs closely. On extended steroids for temporal arteritis- will decrease to 30mg PO daily for now. Will need slow taper plan moving forward. Monitor for recurrent of sx. Monitor insulin/BG as steroids are weaned. Continue O2. Continue PT/OT per primary team. Will continue to follow. Plan-04/13/17 (Mirakian). Overall, Juliann appears to be making gains. New complaint of dysuria and burning with urination. UA reveals gram negative rods. She has a history of ESBL and reports that she was previously on prophylactic Keflex BID per her PCP. She is not currently on Keflex. Discussed case with Dr. Koch (infectious disease) who recommended treatment with meropenem or fosfomycin 3g one time dose. She discouraged prophylactic treatment especially given the patient's prior sensitivities were resistant to cephalosporins. Patient was given fosfomycin 3g po x 1 dose on 04/12 around midnight. Will continue to monitor symptoms closely. Patient remains afebrile. Continue supportive care and continue to encourage participation in therapies. High risk for HF given severity of obesity. Monitor need for diuretics. Monitor daily weights for signs of fluid overload as well as respiratory function. On extended steroids for temporal arteritis- will decrease to 30mg PO daily on 04/12/17. Will need slow taper plan moving forward. Monitor for recurrent of symptoms. Monitor insulin/BG as steroids are weaned. Blood sugars have been elevated >200 average. Will add sliding scale insulin and continue to monitor closely. Hesitant in adjusting insulins given current UTI and weaning of steroids. Will recheck labs in AM to monitor blood counts, electrolytes and renal function. In light of elevated renal function as well as mild hyperkalemia, will give IV bolus 500cc NS now. Encourage fluid intake. Diarrhea yesterday and today. Patient believes it is related to too many stool softeners. Will check GI panel given recent antibiotic use. Discussed with patient her ability to refuse stool softeners if she feels she does not need them. She feels comfortable with treatment plan. <EdwigealiyahSiddharth - Last Filed: 04/15/17 07:28> Exam Vital signs: Temperature 98.4 F 04/14/17 20:26 Pulse Rate 69 04/15/17 00:00 Respiratory Rate 24 04/14/17 20:26 Blood Pressure 142/54 H 04/14/17 20:26 Pulse Oximetry 96 04/14/17 20:26 Assessment and Plan - Assessment and Plan (1) HTN (hypertension) Current visit: No Status: Chronic (2) Hyperlipidemia Current visit: No Status: Chronic (3) Diabetes mellitus type 2 in obese Current visit: Yes Status: Chronic (4) PAF (paroxysmal atrial fibrillation) Current visit: Yes Status: Resolved (5) Presence of cardiac pacemaker Current visit: Yes Status: Chronic - Attestation Attestation Narrative: 04/15/17 07:28 Recommendation After examining the patient I agree with the above assessment. I am involved in the formulation of the patient's plan of care. Hospital Course Summary Disclaimer: The visit summary below is not to be considered part of the above Progress Note.
[2017-04-13] MEDS: RIVAROXABAN 20 MG TABLET PO SCH (17:58)
[2017-04-13] MEDS: INSULIN DETEMIR 100unit/ml INJECTION SQ SCH (22:18)
[2017-04-13] MEDS: SALINE FLUSH 10ml SYRINGE IV PRN (22:22)
[2017-04-14] MEDS: DiphenhydrAMINE 25 MG CAPSULE PO SCH ×3 (02:43→17:42)
[2017-04-14] MEDS: TRAMADOL 50 MG TABLET PO PRN ×2 (04:11→18:36)
[2017-04-14] MEDS: PANTOPRAZOLE 40 MG TABLET PO SCH ×2 (04:48→22:10)
[2017-04-14] MEDS: LEVOTHYROXINE 150 MCG TABLET PO SCH ×2 (04:48→22:11)
[2017-04-14] MEDS: SUCRALFATE 1 GM TABLET PO SCH ×3 (04:49→22:33)
[2017-04-14] MEDS: GEMFIBROZIL 600 MG TABLET PO SCH ×2 (09:04→17:42)
[2017-04-14] MEDS: DOCUSATE SODIUM 100 MG CAPSULE PO SCH ×2 (09:04→22:34)
[2017-04-14] MEDS: MAGNESIUM OXIDE 400 MG TABLET PO SCH (09:04)
[2017-04-14] MEDS: LISINOPRIL 10 MG TABLET PO SCH (09:04)
[2017-04-14] MEDS: MULTI-VIT + MINERAL (Opti-gen) TABLET PO SCH (09:06)
[2017-04-14] MEDS: FERROUS SULFATE 324 MG TABLET PO SCH (09:06)
[2017-04-14] MEDS: POLYETHYL GLYCOL 3350 17gm PACKET PO SCH (09:06)
[2017-04-14] MEDS: MULTI-VITAMIN + MINERAL TABLET PO SCH (09:06)
[2017-04-14] MEDS: PredniSONE 10 MG TABLET PO SCH (09:06)
[2017-04-14] MEDS: SENNOSIDES 8.6 MG TABLET PO SCH ×2 (09:07→22:35)
[2017-04-14] MEDS: INSULIN ASPART 100unit/ml INJECTION SQ SCH ×3 (09:10→17:42)
--- NOTE | 2017-04-14 09:18 | Cardiology Progress Note ---
<Isabel Claros - Last Filed: 04/15/17 07:43> Subjective Principal diagnosis: S/P PPM Interval history: Juliann is seen in the dinning room this morning in follow up, status post PPM on 04/03/17. She denies chest pain, palpitations or dyspnea, she remains on 2L/ NC. Exam Vital signs: Temperature 97.7 F 04/14/17 08:00 Pulse Rate 70 04/14/17 08:00 Respiratory Rate 16 04/14/17 08:00 Blood Pressure 151/84 H 04/14/17 08:00 Pulse Oximetry 97 04/14/17 08:00 - Constitutional no acute distress, morbidly obese, cooperative - Routine HEENT Exam Head: Present: normocephalic ENT: Present: mucous membranes moist - Routine Neck Exam Absent: JVD, carotid bruit - Routine Chest/Breast/Axilla Exam Chest wall: Present: pacemaker. Absent: tenderness - Routine Respiratory Exam Present: CTA bilaterally. Absent: rales, wheezes - Routine Cardiovascular Exam Present: RRR, no murmur. Absent: JVD - Routine Abdominal Exam Present: soft, normoactive bowel sounds - Routine Extremities Exam Present: no edema - Routine Skin Exam Present: intact, dry, warm - Routine Neurological Exam Present: alert, oriented X3 - Routine Psychiatric Exam Present: normal affect, normal thought process - Additional findings Additional findings: Laboratory Results - last 24 hr 04/13/17 04/13/17 04/13/17 10:05 14:21 21:24 WBC RBC Hgb Hct MCV MCH MCHC RDW Std Deviation Plt Count MPV Immature Gran % (Auto) Neut % (Auto) Lymph % (Auto) [place] % (Auto) Eos % (Auto) Baso % (Auto) Neut # (Auto) Lymph # (Auto) [place] # (Auto) Eos # (Auto) Baso # (Auto) Abs Immat Gran (auto) Neutrophils % (Manual) Band Neutrophils % Lymphocytes % (Manual) Monocytes % (Manual) Neutrophils # (Manual) Band Neutrophils # Lymphocytes # (Manual) Monocytes # (Manual) Nucleated RBCs Poikilocytosis Anisocytosis Tear Drop Cells RBC Morph Comment Turbidity Sodium Potassium Chloride Carbon Dioxide Anion Gap BUN Creatinine GFR Calculation BUN/Creatinine Ratio Glucose Glucometer 172 222 204 Calculated Osmolality Calcium Icterus Index Specimen Hemolysis 04/14/17 04/14/17 04/14/17 03:53 03:53 04:13 WBC 9.3 RBC 3.33 L Hgb 9.3 L Hct 31.8 L MCV 95.5 MCH 27.9 MCHC 29.2 L RDW Std Deviation 57.4 H Plt Count 284 MPV 9.2 L Immature Gran % (Auto) Not performed Neut % (Auto) Not performed Lymph % (Auto) Not performed [place] % (Auto) Not performed Eos % (Auto) Not performed Baso % (Auto) Not performed Neut # (Auto) Not performed Lymph # (Auto) Not performed [place] # (Auto) Not performed Eos # (Auto) Not performed Baso # (Auto) Not performed Abs Immat Gran (auto) Not performed Neutrophils % (Manual) 82.0 H Band Neutrophils % 1.0 Lymphocytes % (Manual) 12.0 L Monocytes % (Manual) 5.0 Neutrophils # (Manual) 7.6 Band Neutrophils # 0.1 Lymphocytes # (Manual) 1.1 Monocytes # (Manual) 0.5 Nucleated RBCs 1 Poikilocytosis 1+ Anisocytosis 2+ Tear Drop Cells 1+ RBC Morph Comment Abnormal Turbidity < 20 Sodium 141 Potassium 5.1 H Chloride 108 H Carbon Dioxide 27 Anion Gap 6 BUN 55.0 H* Creatinine 1.2 GFR Calculation 44 BUN/Creatinine Ratio 46 H Glucose 134 H Glucometer 132 Calculated Osmolality 288 H Calcium 9.3 Icterus Index < 2 Specimen Hemolysis < 15 Hydrocodone Bitart/Acetaminophen ([place] 5/325) 1 tab PO Q4H PRN PRN Reason: Pain Last Admin: 04/13/17 22:09 Dose: 1 tab Cholecalciferol (Vit. D-3) 1,000 unit PO DAILY [facility] Last Admin: 04/14/17 09:06 Dose: 1,000 unit Diltiazem HCl (Cardizem Cd) 240 mg PO BID [facility] Last Admin: 04/14/17 09:05 Dose: 240 mg Diphenhydramine HCl (Benadryl) 25 mg PO Q8HR [facility] Last Admin: 04/14/17 09:05 Dose: Not Given Docusate Sodium (Colace) 100 mg PO BID [facility] Last Admin: 04/14/17 09:04 Dose: Not Given Ferrous Sulfate (Feosol) 324 mg PO WB [facility] Last Admin: 04/14/17 09:06 Dose: 324 mg Gemfibrozil (Lopid) 600 mg PO ACBID30 [facility] Last Admin: 04/14/17 09:04 Dose: 600 mg Insulin Aspart (Novolog) 15 unit SQ ONE TIME [facility] Last Admin: 04/11/17 12:23 Dose: 15 unit Insulin Aspart (Novolog) 30 unit SQ TIDWM [facility] Last Admin: 04/14/17 09:10 Dose: 30 unit Insulin Aspart (Novolog) 0 unit SQ SS PRN; Protocol PRN Reason: Hyperglycemia Last Admin: 04/13/17 14:26 Dose: 2 unit Insulin Detemir (Levemir) 45 unit SQ HS [facility] Last Admin: 04/13/17 22:18 Dose: 45 unit Levothyroxine Sodium (Synthroid) 150 mcg PO ACB [facility] Last Admin: 04/14/17 04:48 Dose: 150 mcg Lisinopril (Prinivil) 10 mg PO DAILY [facility] Last Admin: 04/14/17 09:04 Dose: 10 mg Magnesium Oxide (Magox) 400 mg PO DAILY [facility] Last Admin: 04/14/17 09:04 Dose: 400 mg Multivitamins/Minerals (Therapeutic - M) 1 tab PO DAILY [facility] Last Admin: 04/14/17 09:06 Dose: 1 tab Multivitamins/Minerals (Vision) 1 tab PO DAILY [facility] Last Admin: 04/14/17 09:06 Dose: 1 tab Nitroglycerin (Nitrostat) 0.4 mg SL Q5MIN3 PRN PRN Reason: Chest pain Pantoprazole Sodium (Protonix Tab) 40 mg PO ACB [facility] Last Admin: 04/14/17 04:48 Dose: 40 mg Polyethylene Glycol (Miralax) 17 gm PO DAILY [facility] Last Admin: 04/14/17 09:06 Dose: 8.5 gm Prednisone (Deltasone) 30 mg PO WB [facility] Last Admin: 04/14/17 09:06 Dose: 30 mg Rivaroxaban (Xarelto) 20 mg PO WS [facility] Last Admin: 04/13/17 17:58 Dose: 20 mg Senna (Senna Lax) 8.6 mg PO BID [facility] Last Admin: 04/14/17 09:07 Dose: Not Given Sodium Chloride (Iv Flush) 10 ml IV PRN PRN PRN Reason: Flushing Last Admin: 04/13/17 22:22 Dose: 10 ml Sucralfate (Carafate) 1 gm PO BID/E [facility] Last Admin: 04/14/17 04:49 Dose: 1 gm Tizanidine HCl (Zanaflex) 4 mg PO Q8H PRN Last Admin: 04/13/17 22:07 Dose: 4 mg Tramadol HCl (Ultram) 50 mg PO Q6HR PRN PRN Reason: Pain Last Admin: 04/14/17 04:11 Dose: 50 mg Assessment and Plan - Assessment and Plan (1) PAF (paroxysmal atrial fibrillation) Current visit: Yes Status: Resolved (2) HTN (hypertension) Current visit: No Status: Chronic (3) Hyperlipidemia Current visit: No Status: Chronic (4) Diabetes mellitus type 2 in obese Current visit: Yes Status: Chronic (5) Morbid obesity Current visit: No Status: Chronic (6) Presence of cardiac pacemaker Current visit: Yes Status: Chronic Hospital Course Summary Disclaimer: The visit summary below is not to be considered part of the above Progress Note. Hospital Course: 04/12/17 16:16 04/12/17 Continue supportive care. S/P PPM-recent. Continue CCB, Xarelto. High risk for HF given severity of obesity. Monitor need for diuretics. Recent ESBL UTI- assess UA. Continue to monitor labs closely. On extended steroids for temporal arteritis- will decrease to 30mg PO daily for now. Will need slow taper plan moving forward. Monitor for recurrent of sx. Monitor insulin/BG as steroids are weaned. Continue O2. Continue PT/OT per primary team. Will continue to follow. Plan-04/13/17 ([place]). Overall, Juliann appears to be making gains. New complaint of dysuria and burning with urination. UA reveals gram negative rods. She has a history of ESBL and reports that she was previously on prophylactic Keflex BID per her PCP. She is not currently on Keflex. Discussed case with Dr. Koch (infectious disease) who recommended treatment with meropenem or fosfomycin 3g one time dose. She discouraged prophylactic treatment especially given the patient's prior sensitivities were resistant to cephalosporins. Patient was given fosfomycin 3g po x 1 dose on 04/12 around midnight. Will continue to monitor symptoms closely. Patient remains afebrile. Continue supportive care and continue to encourage participation in therapies. High risk for HF given severity of obesity. Monitor need for diuretics. Monitor daily weights for signs of fluid overload as well as respiratory function. On extended steroids for temporal arteritis- will decrease to 30mg PO daily on 04/12/17. Will need slow taper plan moving forward. Monitor for recurrent of symptoms. Monitor insulin/BG as steroids are weaned. Blood sugars have been elevated >200 average. Will add sliding scale insulin and continue to monitor closely. Hesitant in adjusting insulins given current UTI and weaning of steroids. Will recheck labs in AM to monitor blood counts, electrolytes and renal function. In light of elevated renal function as well as mild hyperkalemia, will give IV bolus 500cc NS now. Encourage fluid intake. Diarrhea yesterday and today. Patient believes it is related to too many stool softeners. Will check GI panel given recent antibiotic use. Discussed with patient her ability to refuse stool softeners if she feels she does not need them. She feels comfortable with treatment plan. <Siddharth Chavez - Last Filed: 04/16/17 11:29> Exam Vital signs: Temperature 98.3 F 04/15/17 21:05 Pulse Rate 69 04/16/17 08:41 Respiratory Rate 20 04/16/17 08:00 Blood Pressure 62/34 04/16/17 08:41 Pulse Oximetry 100 04/16/17 08:00 Assessment and Plan - Assessment and Plan (1) HTN (hypertension) Current visit: No Status: Chronic (2) Hyperlipidemia Current visit: No Status: Chronic (3) Morbid obesity Current visit: No Status: Chronic (4) Diabetes mellitus type 2 in obese Current visit: Yes Status: Chronic (5) PAF (paroxysmal atrial fibrillation) Current visit: Yes Status: Resolved (6) Presence of cardiac pacemaker Current visit: Yes Status: Chronic - Attestation Attestation Narrative: 04/16/17 11:28 Recommendation After examining the patient I agree with the above assessment. I am involved in the formulation of the patient's plan of care. Hospital Course Summary Disclaimer: The visit summary below is not to be considered part of the above Progress Note.
[2017-04-14] MEDS: HYDROCODONE/APAP 5mg/325mg TABLET PO PRN ×3 (09:57→22:36)
--- NOTE | 2017-04-14 10:41 | IRU Progress Note ---
- Subjective/Serverity of Illness Ana was evaluated in her room today. She has a recent diagnosis of a urinary tract infection. Apparently she had ESBL Escherichia coli previously. She was given a single dose of Fosfomycin this time. She is growing 50,000-100, 000 colonies of Escherichia coli with sensitivities pending at the time of this dictation. Has had some dysuria and frequency. Her urinalysis is reviewed and certainly would be consistent with a UTI. Secondly, she complains of not sleeping well at night. In the past she has used Benadryl at home and would like to be back on that. Otherwise does not do well with "sleeping pills" in general. With regard to her recent pacemaker placement and AV reena ablation, she denies any tachycardia and denies any lightheadedness. She does report significant mouth dryness as well as reduced appetite. I did discuss with her the fact that Benadryl will only make the mouth dryness worse. She wondered about the use of biotin and we will give that a try. Update on medical issues requiring active monitoring and management: 1. Diabetes mellitus with evidence of insulin resistance on fairly high doses of insulin: Her blood sugars continue to be a bit elevated. Hospitalists are managing. 2. Recent acute kidney injury superimposed upon chronic kidney disease: Follow- up creatinine has been 1.2-1.3. She did receive 500 cc fluid bolus. 3. Recent AV ablation with permanent pacemaker placement and dislodgment of right ventricular lead. Pacemaker site is clean and dry without evidence of infection. She is asymptomatic with regard to lightheadedness. 4. Anemia with evidence of iron deficiency. Hemoglobin remains stable. 5. Temporal arteritis on moderately high doses of chronic prednisone: She continues on prednisone 40 mg daily. 6. Urinary tract infection: She is growing Escherichia coli. Previously had ESBL E. Coli. Received single dose of Fosfomycin last night. Exam Vital Signs: Temperature 97.7 F 04/14/17 08:00 Pulse Rate 70 04/14/17 08:00 Respiratory Rate 16 04/14/17 08:00 Blood Pressure 151/84 H 04/14/17 08:00 Pulse Oximetry 97 04/14/17 08:00 Height/Weight/BMI: Height 1.5 m Weight 154.9 kg Body Mass Index 69.0 Comments: The patient is awake, alert and oriented and in no acute distress. Pupils are equal. The neck is supple. Chest: Clear to auscultation bilaterally. Cor: RR with no gallop, click nor murmur Abd: soft with normo-active bowel sounds. There are no masses, no tenderness and no guarding. Extremities: No edema is noted. Pacemaker insertion site benign. Results IRU - Labs Labs: Reviewed lab and urine cultures as well as blood sugars. IRU A/P (1) PAF (paroxysmal atrial fibrillation) Current visit: Yes Status: Resolved (2) HTN (hypertension) Qualifiers: Hypertension type: essential hypertension Qualified Code(s): I10 - Essential (primary) hypertension Current visit: No Status: Chronic (3) Hyperlipidemia Qualifiers: Hyperlipidemia type: mixed hyperlipidemia Qualified Code(s): E78.2 - Mixed hyperlipidemia Current visit: No Status: Chronic (4) Diabetes mellitus type 2 in obese Current visit: Yes Status: Chronic Blood sugars are remaining a bit elevated. Hospitalists are following. Does report a poor appetite although is on chronic prednisone usage. (5) Presence of cardiac pacemaker Current visit: Yes Status: Chronic Pacemaker site is unremarkable. (6) Myopathy Current visit: Yes Status: Acute (7) UTI (urinary tract infection), bacterial Current visit: Yes Status: Acute Has a history of ESBL producing Escherichia coli urinary tract infection. Repeat urine culture due to symptoms is growing gram-negative marie. Was given single dose of fosfomycin last night. (8) Dry mouth Current visit: Yes Status: Acute Does complain of dry mouth which is likely multifactorial and related to medications as well as her diabetes. (9) Insomnia Qualifiers: Insomnia type: primary Qualified Code(s): F51.01 - Primary insomnia Current visit: Yes Status: Acute Reports difficulty resting at night and difficulty sleeping. She misses her recliner at home she states. She would prefer not to take a "sleeping pill" but would like to try Benadryl. DVT Prophylaxis: Xarelto Resuscitation Status: Full Code - Course Hospital Course: Pankaj Dixon MD: 04/13/17 11:44 She has substantial deconditioning. She is short of breath with transfers. She is improving with therapy. Cardiac status appears to be stable at present and we will review the strips. No evidence of wound infection. Her blood sugars are borderline elevated. 04/14/17 10:45 Blood sugars remain a bit elevated. No lightheadedness. Does have dyspnea with activity. Does have muscle weakness/deconditioning/myopathy. Progressing with therapy. Recent diagnosis of UTI with discussion as noted above. Single dose of fosfomycin given last night. - Interventions to Obtain Goals PT Treatment Plan: Balance/Proprioception, Functional Activities, Gait Training , Therapeutic Exercise OT Treatment Plan: ADL (Basic Care), Balance Training, IADL, Pt./Family Education, Ther. Exercise for ADL Goals Progress/Modifications: Time spent with patient and on floor reviewing data and documentin min Barriers to dismissal: Dyspnea, endurance, UTI Medical decision-making: Divya has multiple issues going on at the present time including a new diagnosis of urinary tract infection (growing gram- negative marie at present), diabetes mellitus with blood sugars being a bit elevated, markedly reduced endurance with evidence of myopathy, insomnia and dry mouth. These will be addressed. We will start some Benadryl and try Biotin. She is progressing with therapies.
[2017-04-14] MEDS: SALIVA SUBSTITUTE MOUTHWASH 237ml MM SCH ×4 (14:32→22:35)
[2017-04-14] MEDS: INSULIN ASPART 100unit/ml INJECTION SQ PRN (14:32)
[2017-04-14] MEDS: RIVAROXABAN 20 MG TABLET PO SCH (17:42)
[2017-04-14] MEDS: INSULIN DETEMIR 100unit/ml INJECTION SQ SCH (22:35)
[2017-04-14] MEDS: SALINE FLUSH 10ml SYRINGE IV PRN (22:37)
[2017-04-15] MEDS: SUCRALFATE 1 GM TABLET PO SCH ×2 (05:34→20:43)
[2017-04-15] MEDS: PANTOPRAZOLE 40 MG TABLET PO SCH (05:34)
[2017-04-15] MEDS: LEVOTHYROXINE 150 MCG TABLET PO SCH (05:50)
[2017-04-15] MEDS: HYDROCODONE/APAP 5mg/325mg TABLET PO PRN ×4 (07:39→20:44)
[2017-04-15] MEDS: GEMFIBROZIL 600 MG TABLET PO SCH ×2 (07:39→17:46)
[2017-04-15] MEDS: MULTI-VITAMIN + MINERAL TABLET PO SCH (08:41)
[2017-04-15] MEDS: FERROUS SULFATE 324 MG TABLET PO SCH (08:41)
[2017-04-15] MEDS: MULTI-VIT + MINERAL (Opti-gen) TABLET PO SCH (08:41)
[2017-04-15] MEDS: INSULIN ASPART 100unit/ml INJECTION SQ SCH ×3 (08:42→17:45)
[2017-04-15] MEDS: MAGNESIUM OXIDE 400 MG TABLET PO SCH (08:42)
[2017-04-15] MEDS: PredniSONE 10 MG TABLET PO SCH (08:42)
[2017-04-15] MEDS: LISINOPRIL 10 MG TABLET PO SCH (08:42)
[2017-04-15] MEDS: SENNOSIDES 8.6 MG TABLET PO SCH ×2 (08:44→20:54)
[2017-04-15] MEDS: POLYETHYL GLYCOL 3350 17gm PACKET PO SCH (08:45)
[2017-04-15] MEDS: DOCUSATE SODIUM 100 MG CAPSULE PO SCH ×2 (08:45→20:53)
[2017-04-15] MEDS: SALINE FLUSH 10ml SYRINGE IV PRN ×2 (08:45→21:01)
--- NOTE | 2017-04-15 10:27 | Cardiology Progress Note ---
<Isabel Claros - Last Filed: 04/16/17 10:54> Subjective Principal diagnosis: S/P PPM Interval history: Juliann is seen in the dining room this morning in follow up, status post PPM on 04/03/17. Her incision is clean dry and intact. She denies chest pain, palpitations or dyspnea, she remains on 2L/NC. Exam Vital signs: Temperature 97.8 F 04/15/17 07:37 Pulse Rate 72 04/15/17 07:37 Respiratory Rate 17 04/15/17 07:37 Blood Pressure 130/65 04/15/17 07:37 Pulse Oximetry 93 04/15/17 07:37 - Constitutional no acute distress, morbidly obese, cooperative - Routine HEENT Exam Head: Present: normocephalic ENT: Present: mucous membranes moist - Routine Neck Exam Absent: JVD, carotid bruit - Routine Chest/Breast/Axilla Exam Chest wall: Present: pacemaker. Absent: tenderness - Routine Respiratory Exam Present: dyspnea, CTA bilaterally, diminished air movement - Routine Cardiovascular Exam Present: RRR, no murmur. Absent: JVD - Routine Abdominal Exam Present: soft, normoactive bowel sounds - Routine Extremities Exam Present: edema - Routine Skin Exam Present: intact, dry, warm - Routine Neurological Exam Present: alert, oriented X3 - Routine Psychiatric Exam Present: normal affect, normal thought process - Additional findings Additional findings: Laboratory Results - last 24 hr 04/14/17 04/14/17 04/14/17 10:58 14:06 20:24 Glucometer 169 187 218 04/15/17 04/15/17 05:10 09:53 Glucometer 155 181 Hydrocodone Bitart/Acetaminophen ([place] 5/325) 1 tab PO Q4H PRN PRN Reason: Pain Last Admin: 04/15/17 07:39 Dose: 1 tab Cholecalciferol (Vit. D-3) 1,000 unit PO DAILY [facility] Last Admin: 04/15/17 08:41 Dose: 1,000 unit Diltiazem HCl (Cardizem Cd) 240 mg PO BID [facility] Last Admin: 04/15/17 08:42 Dose: 240 mg Diphenhydramine HCl (Benadryl) 50 mg PO HS [facility] Last Admin: 04/14/17 22:49 Dose: 50 mg Docusate Sodium (Colace) 100 mg PO BID [facility] Last Admin: 04/15/17 08:45 Dose: Not Given Ferrous Sulfate (Feosol) 324 mg PO WB [facility] Last Admin: 04/15/17 08:41 Dose: 324 mg Gemfibrozil (Lopid) 600 mg PO ACBID30 [facility] Last Admin: 04/15/17 07:39 Dose: 600 mg Insulin Aspart (Novolog) 15 unit SQ ONE TIME [facility] Last Admin: 04/11/17 12:23 Dose: 15 unit Insulin Aspart (Novolog) 30 unit SQ TIDWM [facility] Last Admin: 04/15/17 08:42 Dose: 30 unit Insulin Aspart (Novolog) 0 unit SQ SS PRN; Protocol PRN Reason: Hyperglycemia Last Admin: 04/14/17 14:32 Dose: 1 unit Insulin Detemir (Levemir) 45 unit SQ HS [facility] Last Admin: 04/14/17 22:35 Dose: 45 unit Levothyroxine Sodium (Synthroid) 150 mcg PO ACB [facility] Last Admin: 04/15/17 05:50 Dose: 150 mcg Lisinopril (Prinivil) 10 mg PO DAILY [facility] Last Admin: 04/15/17 08:42 Dose: 10 mg Magnesium Oxide (Magox) 400 mg PO DAILY [facility] Last Admin: 04/15/17 08:42 Dose: 400 mg Multivitamins/Minerals (Therapeutic - M) 1 tab PO DAILY [facility] Last Admin: 04/15/17 08:41 Dose: 1 tab Multivitamins/Minerals (Vision) 1 tab PO DAILY [facility] Last Admin: 04/15/17 08:41 Dose: 1 tab Nitroglycerin (Nitrostat) 0.4 mg SL Q5MIN3 PRN PRN Reason: Chest pain Pantoprazole Sodium (Protonix Tab) 40 mg PO ACB [facility] Last Admin: 04/15/17 05:34 Dose: 40 mg Polyethylene Glycol (Miralax) 17 gm PO DAILY [facility] Last Admin: 04/15/17 08:45 Dose: 8.5 gm Prednisone (Deltasone) 30 mg PO WB [facility] Last Admin: 04/15/17 08:42 Dose: 30 mg Rivaroxaban (Xarelto) 20 mg PO WS [facility] Last Admin: 04/14/17 17:42 Dose: 20 mg Saliva Substitute (Biotene Dry Mouth Oral Rinse) 15 ml MM 5XD [facility] Last Admin: 04/14/17 22:35 Dose: Not Given Senna (Senna Lax) 8.6 mg PO BID [facility] Last Admin: 04/15/17 08:44 Dose: Not Given Sodium Chloride (Iv Flush) 10 ml IV PRN PRN PRN Reason: Flushing Last Admin: 04/15/17 08:45 Dose: 10 ml Sucralfate (Carafate) 1 gm PO BID/E [facility] Last Admin: 04/15/17 05:34 Dose: 1 gm Tizanidine HCl (Zanaflex) 4 mg PO Q8H PRN Last Admin: 04/14/17 22:36 Dose: 4 mg Tramadol HCl (Ultram) 50 mg PO Q6HR PRN PRN Reason: Pain Last Admin: 04/14/17 18:36 Dose: 50 mg Assessment and Plan - Assessment and Plan (1) PAF (paroxysmal atrial fibrillation) Current visit: Yes Status: Resolved (2) HTN (hypertension) Current visit: No Status: Chronic (3) Hyperlipidemia Current visit: No Status: Chronic (4) Diabetes mellitus type 2 in obese Current visit: Yes Status: Chronic (5) Morbid obesity Current visit: No Status: Chronic (6) Presence of cardiac pacemaker Current visit: Yes Status: Chronic Hospital Course Summary Disclaimer: The visit summary below is not to be considered part of the above Progress Note. Hospital Course: 04/12/17 16:16 04/12/17 Continue supportive care. S/P PPM-recent. Continue CCB, Xarelto. High risk for HF given severity of obesity. Monitor need for diuretics. Recent ESBL UTI- assess UA. Continue to monitor labs closely. On extended steroids for temporal arteritis- will decrease to 30mg PO daily for now. Will need slow taper plan moving forward. Monitor for recurrent of sx. Monitor insulin/BG as steroids are weaned. Continue O2. Continue PT/OT per primary team. Will continue to follow. Plan-04/13/17 ([place]). Overall, Juliann appears to be making gains. New complaint of dysuria and burning with urination. UA reveals gram negative rods. She has a history of ESBL and reports that she was previously on prophylactic Keflex BID per her PCP. She is not currently on Keflex. Discussed case with Dr. Koch (infectious disease) who recommended treatment with meropenem or fosfomycin 3g one time dose. She discouraged prophylactic treatment especially given the patient's prior sensitivities were resistant to cephalosporins. Patient was given fosfomycin 3g po x 1 dose on 04/12 around midnight. Will continue to monitor symptoms closely. Patient remains afebrile. Continue supportive care and continue to encourage participation in therapies. High risk for HF given severity of obesity. Monitor need for diuretics. Monitor daily weights for signs of fluid overload as well as respiratory function. On extended steroids for temporal arteritis- will decrease to 30mg PO daily on 04/12/17. Will need slow taper plan moving forward. Monitor for recurrent of symptoms. Monitor insulin/BG as steroids are weaned. Blood sugars have been elevated >200 average. Will add sliding scale insulin and continue to monitor closely. Hesitant in adjusting insulins given current UTI and weaning of steroids. Will recheck labs in AM to monitor blood counts, electrolytes and renal function. In light of elevated renal function as well as mild hyperkalemia, will give IV bolus 500cc NS now. Encourage fluid intake. Diarrhea yesterday and today. Patient believes it is related to too many stool softeners. Will check GI panel given recent antibiotic use. Discussed with patient her ability to refuse stool softeners if she feels she does not need them. She feels comfortable with treatment plan. <Siddharth Chavez - Last Filed: 04/16/17 11:35> Exam Vital signs: Temperature 98.3 F 04/15/17 21:05 Pulse Rate 69 04/16/17 08:41 Respiratory Rate 20 04/16/17 08:00 Blood Pressure 62/34 04/16/17 08:41 Pulse Oximetry 100 04/16/17 08:00 Assessment and Plan - Assessment and Plan (1) HTN (hypertension) Current visit: No Status: Chronic (2) Hyperlipidemia Current visit: No Status: Chronic (3) Morbid obesity Current visit: No Status: Chronic (4) Diabetes mellitus type 2 in obese Current visit: Yes Status: Chronic (5) PAF (paroxysmal atrial fibrillation) Current visit: Yes Status: Resolved (6) Presence of cardiac pacemaker Current visit: Yes Status: Chronic - Attestation Attestation Narrative: 04/16/17 11:35 Recommendation After examining the patient I agree with the above assessment. I am involved in the formulation of the patient's plan of care. Hospital Course Summary Disclaimer: The visit summary below is not to be considered part of the above Progress Note.
--- NOTE | 2017-04-15 10:27 | IRU Progress Note ---
- Subjective/Serverity of Illness Divya was evaluated in her room at inpatient rehabilitation. She is improving with therapy. She believes that she is nearing the time that she can be independent at home as she was previously. Continues to ambulate with the powered wheelchair of course. Transfers are improving and ADLs are improving. She was able to sleep better last night with the 2 Benadryl at bedtime. She wonders why she has edema. We discussed the fact that this is likely related to underlying steroid use as well as dependency. Her lungs sound clear at the present time. Exam Vital Signs: Temperature 97.8 F 04/15/17 07:37 Pulse Rate 72 04/15/17 07:37 Respiratory Rate 17 04/15/17 07:37 Blood Pressure 130/65 04/15/17 07:37 Pulse Oximetry 93 04/15/17 07:37 Height/Weight/BMI: Height 1.5 m Weight 154.9 kg Body Mass Index 69.0 Comments: The patient is awake, alert and oriented and in no acute distress. Pupils are equal. The neck is supple. Chest: Clear to auscultation bilaterally. Cor: RR with no gallop, click nor murmur Abd: soft with normo-active bowel sounds. There are no masses, no tenderness and no guarding. Extremities: Trace edema noted. Results IRU - Labs Labs: I reviewed recent labs including her glucometer readings IRU A/P (1) PAF (paroxysmal atrial fibrillation) Current visit: Yes Status: Resolved Denies any lightheadedness. Has had no symptoms of fibrillation since the ablation. (2) HTN (hypertension) Qualifiers: Hypertension type: essential hypertension Qualified Code(s): I10 - Essential (primary) hypertension Current visit: No Status: Chronic Blood pressures currently are well controlled. (3) Hyperlipidemia Qualifiers: Hyperlipidemia type: mixed hyperlipidemia Qualified Code(s): E78.2 - Mixed hyperlipidemia Current visit: No Status: Chronic (4) Diabetes mellitus type 2 in obese Current visit: Yes Status: Chronic Her blood sugars remain between 160 and 200. (5) Presence of cardiac pacemaker Current visit: Yes Status: Chronic (6) Myopathy Current visit: Yes Status: Acute Continues to progress with therapy. Approaching her previous status. Team meeting this noon. (7) UTI (urinary tract infection), bacterial Current visit: Yes Status: Acute (8) Dry mouth Current visit: Yes Status: Acute (9) Insomnia Qualifiers: Insomnia type: primary Qualified Code(s): F51.01 - Primary insomnia Current visit: Yes Status: Acute She slept better last night with 2 Benadryl at bedtime. DVT Prophylaxis: Xarelto Resuscitation Status: Full Code - Course Hospital Course: Pankaj Dixon MD: 04/13/17 11:44 She has substantial deconditioning. She is short of breath with transfers. She is improving with therapy. Cardiac status appears to be stable at present and we will review the strips. No evidence of wound infection. Her blood sugars are borderline elevated. 04/14/17 10:45 Blood sugars remain a bit elevated. No lightheadedness. Does have dyspnea with activity. Does have muscle weakness/deconditioning/myopathy. Progressing with therapy. Recent diagnosis of UTI with discussion as noted above. Single dose of fosfomycin given last night. 04/15/17 10:29 Her blood sugars are somewhat improved. Dyspnea with activity persists but stable. She is progressing with therapy. No current symptoms of UTI. - Interventions to Obtain Goals PT Treatment Plan: Balance/Proprioception, Functional Activities, Gait Training , Therapeutic Exercise OT Treatment Plan: ADL (Basic Care), Balance Training, IADL, Pt./Family Education, Ther. Exercise for ADL
[2017-04-15] MEDS: INSULIN ASPART 100unit/ml INJECTION SQ PRN ×3 (10:43→21:16)
[2017-04-15] MEDS: TRAMADOL 50 MG TABLET PO PRN ×2 (10:43→18:15)
[2017-04-15] MEDS: SALIVA SUBSTITUTE MOUTHWASH 237ml MM SCH ×5 (12:13→20:45)
--- NOTE | 2017-04-15 13:43 | IRU Team Meeting ---
IRU Team Meeting - Nursing Vital Signs: Vital Signs - 24 hr 04/14/17 16:00 04/14/17 20:26 04/15/17 00:00 Temperature 98.3 F 98.4 F Pulse Rate 75 96 69 Respiratory Rate 22 24 Blood Pressure 139/66 142/54 H Pulse Oximetry 96 96 04/15/17 07:37 04/15/17 08:00 Temperature 97.8 F Pulse Rate 72 72 Respiratory Rate 17 Blood Pressure 130/65 Pulse Oximetry 93 Current Medications: Hydrocodone Bitart/Acetaminophen ([place] 5/325) 1 tab PO Q4H PRN PRN Reason: Pain Last Admin: 04/15/17 12:20 Dose: 1 tab Cholecalciferol (Vit. D-3) 1,000 unit PO DAILY [facility] Last Admin: 04/15/17 08:41 Dose: 1,000 unit Diltiazem HCl (Cardizem Cd) 240 mg PO BID [facility] Last Admin: 04/15/17 08:42 Dose: 240 mg Diphenhydramine HCl (Benadryl) 50 mg PO HS [facility] Last Admin: 04/14/17 22:49 Dose: 50 mg Docusate Sodium (Colace) 100 mg PO BID [facility] Last Admin: 04/15/17 08:45 Dose: Not Given Ferrous Sulfate (Feosol) 324 mg PO WB [facility] Last Admin: 04/15/17 08:41 Dose: 324 mg Gemfibrozil (Lopid) 600 mg PO ACBID30 [facility] Last Admin: 04/15/17 07:39 Dose: 600 mg Insulin Aspart (Novolog) 15 unit SQ ONE TIME [facility] Last Admin: 04/11/17 12:23 Dose: 15 unit Insulin Aspart (Novolog) 30 unit SQ TIDWM [facility] Last Admin: 04/15/17 12:16 Dose: 30 unit Insulin Aspart (Novolog) 0 unit SQ SS PRN; Protocol PRN Reason: Hyperglycemia Last Admin: 04/15/17 10:43 Dose: 1 unit Insulin Detemir (Levemir) 45 unit SQ HS [facility] Last Admin: 04/14/17 22:35 Dose: 45 unit Levothyroxine Sodium (Synthroid) 150 mcg PO ACB [facility] Last Admin: 04/15/17 05:50 Dose: 150 mcg Lisinopril (Prinivil) 10 mg PO DAILY [facility] Last Admin: 04/15/17 08:42 Dose: 10 mg Magnesium Oxide (Magox) 400 mg PO DAILY [facility] Last Admin: 04/15/17 08:42 Dose: 400 mg Multivitamins/Minerals (Therapeutic - M) 1 tab PO DAILY [facility] Last Admin: 04/15/17 08:41 Dose: 1 tab Multivitamins/Minerals (Vision) 1 tab PO DAILY [facility] Last Admin: 04/15/17 08:41 Dose: 1 tab Nitroglycerin (Nitrostat) 0.4 mg SL Q5MIN3 PRN PRN Reason: Chest pain Pantoprazole Sodium (Protonix Tab) 40 mg PO ACB [facility] Last Admin: 04/15/17 05:34 Dose: 40 mg Polyethylene Glycol (Miralax) 17 gm PO DAILY [facility] Last Admin: 04/15/17 08:45 Dose: 8.5 gm Prednisone (Deltasone) 30 mg PO WB [facility] Last Admin: 04/15/17 08:42 Dose: 30 mg Rivaroxaban (Xarelto) 20 mg PO WS [facility] Last Admin: 04/14/17 17:42 Dose: 20 mg Saliva Substitute (Biotene Dry Mouth Oral Rinse) 15 ml MM 5XD [facility] Last Admin: 04/15/17 12:13 Dose: Not Given Senna (Senna Lax) 8.6 mg PO BID [facility] Last Admin: 04/15/17 08:44 Dose: Not Given Sodium Chloride (Iv Flush) 10 ml IV PRN PRN PRN Reason: Flushing Last Admin: 04/15/17 08:45 Dose: 10 ml Sucralfate (Carafate) 1 gm PO BID/E [facility] Last Admin: 04/15/17 05:34 Dose: 1 gm Tizanidine HCl (Zanaflex) 4 mg PO Q8H PRN Last Admin: 04/14/17 22:36 Dose: 4 mg Tramadol HCl (Ultram) 50 mg PO Q6HR PRN PRN Reason: Pain Last Admin: 04/15/17 10:43 Dose: 50 mg Current Medical Issues: Diabetes mellitus, recent permanent pacemaker placement with lead dislodgment and repositioning, history of atrial fibrillation with AV reena ablation, recent UTI Comments: I certify that I personally led the interdisciplinary team meeting and agree with comments, barriers and goals indicated. Team meeting was held in the patient's room with the patient and the following family members present: sister Divya has had some difficulty sleeping. That is improved. Her blood sugars have been running a bit elevated although she was on a much higher dose of insulin prior to admission. She has been treated for a recent urinary tract infection. Potassium continues to be slightly elevated at 5.1. She does have stage III chronic kidney disease but her creatinine has remained relatively stable. She has not had recent hypoglycemic episodes. - Dietary She is maintained on a 2000-calorie consistent carbohydrate diet. Intake is monitor. She is eating adequately. She reports her appetite was poor recently but it has improved. Her blood sugars are running just slightly elevated at this time. - Physical Therapy Comments: She is improving with therapy. She is moderate assistance for bed/chair/ wheelchair transfers. She requires minimal to moderate assistance with supine to sit. Otherwise she is standby assistance for all other chair and bed transfers. She does not require car transfer nor ambulation skills at home as she uses a powered wheelchair. - Occupational Therapy Comments: She is modified independent for eating ability and standby assistance for grooming and upper body dressing which has improved. She is standby assist for bathing and tub transfers. She is progressing toward occupational therapy goals and feels more comfortable managing her ADL tasks at home. - Goals Goals: 1. Dressing at modified independent level II. Light meal preparation at modified independent level III. Modified independent functioning with transfers. - Barriers to Discharge Barriers to Attaining Goals: Endurance, Other (Motivatin) - Care Plan Anticipated DC Destination: Home Health Service I have led this team conference and agree with the plan. Anticipated Length of Stay (days): 6
[2017-04-15] MEDS: RIVAROXABAN 20 MG TABLET PO SCH (17:45)
--- NOTE | 2017-04-15 18:38 | Progress Note ---
- Date 04/15/17 Subjective: Patient reports she is feeling stronger. She has no urinary sxs. No CP or SOA. The dietitian has noted from previous records she was on double the amount of insulin that she is now. Her sugars are to goal only about 50% of the time. Objective Vital signs: Temperature 98.1 F 04/15/17 15:08 Pulse Rate 72 04/15/17 16:00 Respiratory Rate 22 04/15/17 15:08 Blood Pressure 124/51 04/15/17 15:08 Pulse Oximetry 97 04/15/17 15:08 Height/Weight/BMI: Height 1.5 m Weight 154.9 kg Body Mass Index 69.0 - Constitutional Present: no acute distress, well nourished, well developed, morbidly obese - Routine Respiratory Exam Present: CTA bilaterally. Absent: wheezes - Routine Cardiovascular Exam Present: RRR. Absent: murmur - Routine Abdominal Exam Present: soft, normoactive bowel sounds, non distended. Absent: tenderness - Routine Extremities Exam Present: edema (trace), normal capillary refill - Routine Skin Exam Present: dry, warm - Routine Neurological Exam Present: alert, oriented X3 - Routine Lymphatic Exam Lymphatic: Absent: adenopathy - Routine Psychiatric Exam Present: normal affect, cooperative Results - Labs CBC & Chem 7: 04/14/17 03:53 04/14/17 03:53 Microbiology Results: Microbiology 04/12/17 19:15 Urine, Voided (Cc/notcc) Urine Culture - Final Escherichia coli Escherichia coli#2 Assessment and Plan Assessment and Plan: Assessment Recent AV ablation for atrial fibrillation Status post right pacemaker implantation Diabetes mellitus (A1c 6.9%) O2 dependent Hypothyroidism Dyslipidemia Insomnia Temporal arteritis (requiring prednisone) Chronic kidney disease stage III-with recent acute kidney injury Iron deficiency anemia Hypertension GERD Nephrolithiasis (history of stents) Fibromyalgia Depression Psoriasis Osteoarthritis Plan Increase Levemir to 50 U q hs and Novolog to 33 units TID w/ meals. Continue to monitor sugars and will adjust further as needed. Vitals stable. Labs in am to follow hgb and renal function. Hospital Course Summary Disclaimer: The visit summary below is not to be considered part of the above Progress Note. Hospital Course: 04/12/17 16:16 04/12/17 Continue supportive care. S/P PPM-recent. Continue CCB, Xarelto. High risk for HF given severity of obesity. Monitor need for diuretics. Recent ESBL UTI- assess UA. Continue to monitor labs closely. On extended steroids for temporal arteritis- will decrease to 30mg PO daily for now. Will need slow taper plan moving forward. Monitor for recurrent of sx. Monitor insulin/BG as steroids are weaned. Continue O2. Continue PT/OT per primary team. Will continue to follow. Plan-04/13/17 (Moise). Overall, Juliann appears to be making gains. New complaint of dysuria and burning with urination. UA reveals gram negative rods. She has a history of ESBL and reports that she was previously on prophylactic Keflex BID per her PCP. She is not currently on Keflex. Discussed case with Dr. Koch (infectious disease) who recommended treatment with meropenem or fosfomycin 3g one time dose. She discouraged prophylactic treatment especially given the patient's prior sensitivities were resistant to cephalosporins. Patient was given fosfomycin 3g po x 1 dose on 04/12 around midnight. Will continue to monitor symptoms closely. Patient remains afebrile. Continue supportive care and continue to encourage participation in therapies. High risk for HF given severity of obesity. Monitor need for diuretics. Monitor daily weights for signs of fluid overload as well as respiratory function. On extended steroids for temporal arteritis- will decrease to 30mg PO daily on 04/12/17. Will need slow taper plan moving forward. Monitor for recurrent of symptoms. Monitor insulin/BG as steroids are weaned. Blood sugars have been elevated >200 average. Will add sliding scale insulin and continue to monitor closely. Hesitant in adjusting insulins given current UTI and weaning of steroids. Will recheck labs in AM to monitor blood counts, electrolytes and renal function. In light of elevated renal function as well as mild hyperkalemia, will give IV bolus 500cc NS now. Encourage fluid intake. Diarrhea yesterday and today. Patient believes it is related to too many stool softeners. Will check GI panel given recent antibiotic use. Discussed with patient her ability to refuse stool softeners if she feels she does not need them. She feels comfortable with treatment plan.
[2017-04-15] MEDS ORDERED: INSULIN ASPART 100unit/ml INJECTION SQ SCH (18:39)
[2017-04-15] MEDS ORDERED: INSULIN DETEMIR 100unit/ml INJECTION SQ SCH (18:39)
[2017-04-15 21:06] VITALS: TEMP 98.3
[2017-04-16] MEDS: LEVOTHYROXINE 150 MCG TABLET PO SCH (05:02)
[2017-04-16] MEDS: SUCRALFATE 1 GM TABLET PO SCH (05:02)
[2017-04-16] MEDS: HYDROCODONE/APAP 5mg/325mg TABLET PO PRN (05:02)
[2017-04-16] MEDS: PANTOPRAZOLE 40 MG TABLET PO SCH (05:02)
[2017-04-16] MEDS ORDERED: NS 1,000 ML IV ONE (08:32)
[2017-04-16] MEDS ORDERED: ONDANSETRON 4 MG/2 ML INJECTION IVP PRN (08:36)
[2017-04-16] MEDS ORDERED: NS 100 ML ONE (08:40)
[2017-04-16] MEDS ORDERED: IODIXANOL 320mg/ml 100ml INJECTION IV ONE (08:40)
[2017-04-16] MEDS ORDERED: SALINE FLUSH 10ml SYRINGE ONE (08:41)
[2017-04-16 08:43] VITALS: RESP 20; O2SAT 100
--- NOTE | 2017-04-16 09:30 | CT Scan Report ---
Indication: abdominal/back pain, hypotension PROCEDURE: CT chest abd/pelvis w con: Encounter: Initial Comparison: Chest x-ray dated February 15, 2017 Technique: Axial CT images were performed through the chest, abdomen and pelvis after the administration of intravenous contrast. Coronal and sagittal two-dimensional reformats. Automated Exposure Control and Iterative Reconstruction dose reducing techniques were utilized. Contrast: Visipaque 320 99 mL Findings: Chest: No pneumothorax. Small right pleural effusion. Right pulmonary calcification could represent a calcified granuloma. Atelectasis in the right lower lobe. Mild left basilar atelectasis or scarring is well. The central airways are patent. This exam was not tailored for evaluation of the aorta but there is no obvious evidence of aortic dissection. No aortic aneurysm identified. Great vessel origins are unremarkable. No axillary or mediastinal adenopathy. Heart is mildly enlarged without pericardial effusion. Cardiac pacemaker device noted. Abdomen/pelvis: Attenuation artifact due to patient body habitus. No evidence of aortic dissection or aneurysm. A large amount of the patient's pannus is excluded from the [id number]. There is asymmetrically increased high attenuation material along the left lateral abdominal wall seen best on axial image #59 measuring up to 13.7 x 12.2 x 5.5 cm in diameter which extends off the field of view laterally. This has an attenuation of 78 Hounsfield units consistent with acute hemorrhage. This involves the musculature just above the level of the iliac crests. No evidence of free intraperitoneal air or free intraperitoneal hemorrhage. The liver is slightly nodular in configuration without focal mass or bile duct dilatation. The gallbladder is apparently surgically absent. The spleen, pancreas and adrenal glands are within normal limits. Areas of left renal cortical loss and scarring within lower pole left renal stone. Right kidney is grossly unremarkable. No abdominal or pelvic lymphadenopathy. Small amount of gas within anterior bladder. Uterus is absent. Scattered colonic diverticulosis without evidence of diverticulitis. Large amount of stool in the cecum. No small bowel obstruction. No retroperitoneal hematoma. Bone windows show degenerative change in the spine. Impression: 1. Large acute hematoma associated with the left lower lateral abdominal wall musculature as described and measured above. 2. Although the exam was not specifically tailored for the evaluation of the aorta there is no evidence of aortic aneurysm or dissection. 3. Right lower lobe atelectasis and small right effusion. Findings were discussed with the ordering provider at 0922 on April 16, 2017. .
[2017-04-16 10:53] VITALS: BP 62/34; PULSE 69
--- NOTE | 2017-04-20 15:27 | Discharge Summary ---
Discharge Information Date of admission: 04/09/17 16:20 Anticipated date of discharge: 04/16/17 Attending Physician: Pankaj Dixon MD Primary care physician: Nikolas Gann MD Consults: 04/10/17 11:03 Physician Consult [CONS] Routine Consulting Provider: Siddharth Chavez Reason For Exam: recent AV ablation and PPM Ordering Provider has Notified Manager Contract: No Physician Consult [CONS] Routine Consulting Provider: Rose Mary Lacey Reason For Exam: medical management Ordering Provider has Notified Manager Contract: Hellen 04/10/17 11:44 Dietary Consult [CONS] Routine Comment: Reason For Exam: DM, obesity, wound healing, chronic prednisone [place] - Discharge Diagnosis (1) HTN (hypertension) Status: Chronic (2) Hyperlipidemia Status: Chronic (3) Diabetes mellitus type 2 in obese Status: Chronic (4) Presence of cardiac pacemaker Status: Chronic (5) Myopathy Status: Acute (6) UTI (urinary tract infection), bacterial Status: Acute (7) Dry mouth Status: Acute (8) Insomnia Status: Acute 1. Disuse myopathy 2. Diabetes mellitus type 2, on insulin 3. Benign essential hypertension 4. Morbid obesity 5. Acute blood loss anemia 6. History of atrial fibrillation-resolved after AV reena ablation and placement of permanent pacemaker - Laboratory Labs: 04/16/17 05:37 04/16/17 05:37 - Microbiology Microbiology 04/12/17 19:15 Urine, Voided (Cc/notcc) Urine Culture - Final Escherichia coli Escherichia coli#2 History of Present Illness HPI: 04/20/17 15:28 Ms. Rogers is a 71-year-old female with history of morbid obesity. She has not walked for some time and uses a motorized wheelchair at home. She has struggled with atrial fibrillation for about the last year. She underwent direct current cardioversion by Dr. Tan in [place] on 01/01/2017. This was successful for about 3 weeks. She subsequently reverted back to atrial fibrillation. She was on sotalol and diltiazem which provided marginal benefit reportedly. She ultimately underwent electrophysiologic study on 03/18/2017 as well as radial frequency ablation at that time. She underwent a second ablation procedure on with placement of a permanent pacemaker at that time. She was then in the ICU and the right ventricular lead became dislodged and had to be repositioned. The patient was very debilitated due to her prolonged hospitalization as well as her multiple year history of not walking. She was felt to be a good candidate for inpatient rehabilitation where she was admitted for interdisciplinary approach with physical therapy occupational therapy and medical management as well as 24 hour rehabilitation nursing. Hospital Course This is a general summary of the patient's hospital course. For more details refer to the complete medical record. She was followed by the hospitalist service during the time of her stay on the acute inpatient rehabilitation. While on the inpatient rehabilitation unit, she was cooperative with therapy. For occupational therapy she was modified independent for eating. Grooming was minimal assistance initially and subsequently standby assistance. Bathing ability was initially maximum assistance and ultimately standby assistance. Upper body dressing was initially maximum assistance and ultimately standby assistance. Lower body dressing was initially total assistance and subsequently she refused. Toilet transfer assistance was initially total assistance and subsequently standby assistance. Bed/chair/wheelchair transfers were initially total assistance and ultimately standby assistance. She was seen by physical therapy as well. She was initially contact-guard assistance for bed/chair/wheelchair transfers and ultimately standby assistance. Toilet assistance was ultimately moderate assistance level. She declined a car transfer training and could not ambulate. Sometime on the morning of April 16 she developed pain in the left lower abdomen. CT scan was done urgently demonstrating a large hematoma in the left lower subcutaneous tissue. In addition she experienced an acute blood loss anemia with hemoglobin dropping from around 9.3 down to 7.8. She was urgently transferred to the intensive care unit by the hospitalist service at that point. She had not fallen nor injured herself. Hospital course: 04/12/17 16:16 04/12/17 Continue supportive care. S/P PPM-recent. Continue CCB, Xarelto. High risk for HF given severity of obesity. Monitor need for diuretics. Recent ESBL UTI- assess UA. Continue to monitor labs closely. On extended steroids for temporal arteritis- will decrease to 30mg PO daily for now. Will need slow taper plan moving forward. Monitor for recurrent of sx. Monitor insulin/BG as steroids are weaned. Continue O2. Continue PT/OT per primary team. Will continue to follow. Plan-04/13/17 (Moise). Overall, Juliann appears to be making gains. New complaint of dysuria and burning with urination. UA reveals gram negative rods. She has a history of ESBL and reports that she was previously on prophylactic Keflex BID per her PCP. She is not currently on Keflex. Discussed case with Dr. Koch (infectious disease) who recommended treatment with meropenem or fosfomycin 3g one time dose. She discouraged prophylactic treatment especially given the patient's prior sensitivities were resistant to cephalosporins. Patient was given fosfomycin 3g po x 1 dose on 04/12 around midnight. Will continue to monitor symptoms closely. Patient remains afebrile. Continue supportive care and continue to encourage participation in therapies. High risk for HF given severity of obesity. Monitor need for diuretics. Monitor daily weights for signs of fluid overload as well as respiratory function. On extended steroids for temporal arteritis- will decrease to 30mg PO daily on 04/12/17. Will need slow taper plan moving forward. Monitor for recurrent of symptoms. Monitor insulin/BG as steroids are weaned. Blood sugars have been elevated >200 average. Will add sliding scale insulin and continue to monitor closely. Hesitant in adjusting insulins given current UTI and weaning of steroids. Will recheck labs in AM to monitor blood counts, electrolytes and renal function. In light of elevated renal function as well as mild hyperkalemia, will give IV bolus 500cc NS now. Encourage fluid intake. Diarrhea yesterday and today. Patient believes it is related to too many stool softeners. Will check GI panel given recent antibiotic use. Discussed with patient her ability to refuse stool softeners if she feels she does not need them. She feels comfortable with treatment plan. Time spent with patient: 25 - 35 minutes Discharge Plan - Med Rec/Dispo Prescriptions: New Insulin Aspart [NovoLOG] 33 unit SQ TIDWM vial Insulin Detemir [Levemir] 50 unit SQ HS vial Lisinopril [Prinivil] 10 mg PO DAILY tablet PEG 3350 17gm PACKET [Miralax] 17 gm PO DAILY packet Hydrocodone/APAP 5/325 [Wiggins 5/325] 1 tab PO Q4H PRN tablet PRN Reason: Pain PredniSONE [Deltasone] 30 mg PO WB tablet Saliva Substitute Mouthwash [Biotene Dry Mouth Oral Rinse] 15 ml MM 5XD bottle Continue Pantoprazole Sodium [Protonix] 40 mg PO ACB #0 Magnesium Oxide [Magnesium] 400 mg PO DAILY Cholecalciferol (Vitamin D3) [Vitamin D3] 1,000 unit PO DAILY Sucralfate [Carafate] 1 gm PO BID Tizanidine HCl 4 mg PO BID PRN PRN Reason: Prn Orders DiphenhydrAMINE [Benadryl] 25 mg PO Q8HR Docusate Sodium [Colace] 1 cap PO BID Ferrous Sulfate 325 mg PO DAILY Sennosides 8.6 mg PO BID Rivaroxaban [Xarelto] 20 mg PO WS Nitroglycerin [Nitrostat] 0.4 mg SL Q5MIN3 PRN #25 tablet PRN Reason: Chest Pain Multivit,Calc,Mins/Iron/Folic [Women's Daily Caplet] 1 tab PO DAILY Gemfibrozil [Lopid] 600 mg PO ACBID Tramadol [Ultram] 50 mg PO Q6HR PRN PRN Reason: Pain diltiazem CD 240 mg capsule,extended release 24 hr 240 mg PO BID 30 Days #60 levothyroxine 150 mcg tablet 150 mcg PO ACB #90 tab Discontinued Insulin Lispro [Humalog] 60 unit SQ TIDWM PredniSONE [Deltasone] 40 mg PO DAILY Insulin Detemir [Levemir] 90 units SQ HS - Disposition 02 Acute Care Hosp, Other - Dismissal Complete Discharge Instructions are:: Complete
== END 2017-04-16 09:30 | disposition short-term general hospital (02) | DRG 556 ==
PROVIDERS: ADMIT Internal Medicine; ATTEND Internal Medicine

== ENCOUNTER 2017-04-16 08:47 | Inpatient (IN) ==
[2017-04-16 09:27] VITALS: BMI 70.7
[2017-04-16] MEDS ORDERED: NS FLUSH BAG 500ml IV PRN (09:29)
[2017-04-16] MEDS ORDERED: NS 1,000 ML IV SCH (09:30)
--- OUTSIDE RECORDS SUMMARY | 2017-04-16 10:03 | External Medical Summary | Continuity of Care Document ---
:1945 Author Organization [facility], [facility]. Allergies Medications Problems Date Dx Coded Attending Type Code Diagnosis Diagnosed By 05/14/2015 MANAS LOUIE, Mahamed M15.0 Primary 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 generalized (osteo)arthritis 05/14/2015 Yanci MALAGON MD M62.81 Muscle weakness 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 (generalized) Procedures Code Description Performed By Performed On PT JAN MALAGON MD 04/23/2015 41126 EVALUATION Results Encounters ACCT No. Visit Discharge Status Pt. Type Provider Facility Loc./Unit Complaint Date/Time [id number] 05/15/2015 06/14/2015 [facility] 00:01:00 23:59:00 JAN LOUIE [id number] 04/23/2015 05/14/2015 [facility] 15:31:00 23:59:00 JAN LOUIE
[2017-04-16] MEDS: NS 1,000 ML IV SCH ×3 (10:32→19:50)
--- NOTE | 2017-04-16 13:20 | XRay Report ---
Indication: post IJ insertion PROCEDURE: XR chest 1V: Encounter: Initial Comparison: February 15, 2017 Findings: New right internal jugular approach central venous catheter. The tip is difficult to visualize but appears to project over the mid SVC. No visible pneumothorax. Mild left basilar atelectasis. No obvious pleural effusion. Cardiac silhouette remains enlarged. Mediastinal contours are stable. Left cardiac pacemaker. Overlying cardiac monitoring leads. Impression: New right IJ line tip appears to project over the mid SVC without evidence of pneumothorax. .
[2017-04-16] MEDS ORDERED: NITROGLYCERIN 0.4 MG SUBLINGUAL TABLET SL PRN (15:48)
--- NOTE | 2017-04-16 15:55 | History & Physical Report ---
<Dhara Arredondo - Last Filed: 04/16/17 15:44> History of Present Illness Date: 04/16/17 Chief complaint: severe abdominal/back pain and hypotension HPI: Patient is a 71-year-old female who was in our inpatient rehabilitation unit recovering from a prolonged hospital stay following cardiac ablation for atrial fibrillation. This morning the nurses noted that her systolic pressure was in the 60s. Patient states she's had pain in the left abdomen and back for the last several days and it became significantly worse at approximately 4-5 this morning. She was given a Zanaflex around 4 AM and Byron at 6 AM. Following this , the nurse noted that she was more pale and patient reports she was seeing "blue castro" on the zaragoza. Patient has never had these symptoms with her muscle relaxer and pain pills in the past. The nurses also had noted some bruising in the left abdominal area which was not there several days ago. Once notified of the low pressures, the patient was evaluated and found to be pale and diaphoretic. She was lucid and able to answer questions, but was in quite a bit of pain. In lieu of the bruising to the left lower abdomen and pain in this area, stat CT chest/abdomen/pelvis was ordered and revealed blood collection superficially in the area of her pain. Nurse reports patient had felt like she had pulled a muscle in her upper left hip/lower back a few days ago, and has been having pain with lifting the left leg up into the bed; thus, it is possible that she could have internal bleeding from an injury muscular in nature, anant given that she is on Xarelto. She was noted to have a drop in her hemoglobin from 9.3 on 04/14/17 to 7.8 this morning. Her BUN, which was averaging 20s to 30s, increased to 60 on 04/13/17 and was 54 this morning. Given her clinical deterioration of significantly low pressures and acute bleeding on anticoagulation, she was transferred to the CCU for higher level of care. The following information regarding patient's recent history is per Dr. Dixon 's rehabilitation admission note from 04/09/17: She has about a one-year history of atrial fibrillation. The patient did undergo direct current cardioversion on 01/01/2017. This helped for about 3 weeks and then she reverted back to atrial fibrillation. Sotalol initially was tried and was somewhat successful and then she was changed to diltiazem. Ejection fraction is noted to be 57%. The patient underwent electrophysiologic study and radiofrequency ablation on in [place]. According to the patient this changed her from atrial fibrillation to atrial flutter. She underwent a second ablation procedure of the AV node on 04/02/[address] Tan in [place]. She is followed locally by Dr. Chavez. The second AV ablation was successful and a permanent pacemaker was placed at the same time. Unfortunately the right ventricular lead became dislodged and she apparently did have a short episode of asystole lasting 7 seconds according to the patient. She was moved to the intensive care unit in the right ventricular lead was repositioned. She remains in a sling in the left arm and is not to lift anything over 10 pounds for at least one week. She did have symptoms with the atrial fibrillation characterized by a sensation of rapid heartbeat as well as lightheadedness prior to the AV ablation. She has other medical issues including diabetes mellitus. Formerly she did check her blood sugars once or twice daily and her most recent A1c is reportedly 6.9%. Recently she has not been checking her blood sugars as frequently. Of pertinence, she does have a diagnosis of temporal arteritis and is on prednisone 40 mg daily. She has had this for some time and has been on this dose for at least the past 3-4 months. She does have chronic kidney disease stage III. While in [place] she did have evidence of acute kidney injury in addition. Renal sonogram failed to reveal any evidence of hydronephrosis. She also had hyperkalemia and did require Kayexalate. Finally, the patient does have anemia. Serum iron was 5%. She was given iron supplementation in [place]. Hemoglobin continues to require monitoring carefully. Review of Systems All systems PM: 10-point ROS was reviewed, no additional remarkable complaints except - Constitutional Constitutional: Present: lethargy, other (diaphoresis) - Musculoskeletal Musculoskeletal: Present: back pain (left-sided) - Integumentary/Breasts Integumentary: Present: swelling (in area of bruising to the lower lateral abdomen), other (diffuse ecchymosis to lower lateral abdominal pannus) - Neurological Neurological: Present: weakness - Psychiatric Psychiatric: Present: visual hallucinations [facility] Medical History Atrial fibrillation Diabetes Dyslipidemia Hypertension Hypothyroidism Insomnia Osteoarthritis Fibromyalgia Idiopathic pancreatitis Psoriasis arthropathica Successful cardioversion-01/01/17 Dr. Chavez Surgical History: Tubal ligation. Hysterectomy without BSO. Thyroidectomy. Cholecystectomy. Cataract surgery. 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 Gann Coating Mixer-Dr. Chavez Medications Home Medications Medication Instructions Recorded Confirmed Type Pantoprazole Sodium [Protonix] 40 mg PO ACB #0 01/25/16 04/16/17 History Cholecalciferol (Vitamin D3) 1,000 unit PO DAILY 02/13/17 04/16/17 History [Vitamin D3] DiphenhydrAMINE [Benadryl] 25 mg PO Q8HR 02/13/17 04/16/17 History Gemfibrozil [Lopid] 600 mg PO ACBID 02/13/17 04/16/17 History Magnesium Oxide [Magnesium] 400 mg PO DAILY 02/13/17 04/16/17 History Multivit,Calc,Mins/Iron/Folic 1 tab PO DAILY 02/13/17 04/16/17 History [Women's Daily Caplet] Sucralfate [Carafate] 1 gm PO BID 02/13/17 04/16/17 History Tizanidine HCl 4 mg PO BID PRN 02/13/17 04/16/17 History diltiazem CD 240 mg 240 mg PO BID 30 Days #60 03/05/17 04/16/17 History capsule,extended release 24 hr Docusate Sodium [Colace] 1 cap PO BID 04/09/17 04/16/17 History Ferrous Sulfate 325 mg PO DAILY 04/09/17 04/16/17 History Rivaroxaban [Xarelto] 20 mg PO WS 04/09/17 04/16/17 History Sennosides 8.6 mg PO BID 04/09/17 04/16/17 History Tramadol [Ultram] 50 mg PO Q6HR PRN 04/09/17 04/16/17 History Allergies Allergy/AdvReac Type Severity Reaction Status Date / Time aspirin Allergy Severe Anaphylactic Verified 04/09/17 23:13 Shock levofloxacin [From Levaquin] Allergy Severe Anaphylactic Verified 04/09/17 23:13 Shock Penicillins Allergy Severe Anaphylactic Verified 04/09/17 23:13 Shock Sulfa (Sulfonamide Allergy Severe Anaphylactic Verified 04/09/17 23:13 Antibiotics) Shock Latex, Natural Rubber Allergy Intermediate Rash Verified 04/09/17 23:13 Judmlil-Usa-Dge Reductase Allergy Intermediate muscle Verified 04/09/17 23:13 Inhibitor weakness codeine Allergy Mild Nausea and Verified 04/09/17 23:13 Vomiting Iodine and Iodide Containing Allergy Mild Rash Verified 04/09/17 23:13 Produc niacin Allergy Flushing Verified 04/09/17 19:41 butorphanol [From Stadol] AdvReac Severe aggressive Verified 04/09/17 23:13 behavior morphine AdvReac Nausea and Verified 03/11/17 07:06 Vomiting Exam Vital Signs: Temperature 96.8 F 04/16/17 15:12 Pulse Rate 69 04/16/17 15:12 Respiratory Rate 16 04/16/17 15:12 Blood Pressure 94/46 04/16/17 15:12 Pulse Oximetry 100 04/16/17 12:15 Height/Weight/BMI: Height 1.5 m Weight 158.9 kg Body Mass Index 70.7 - Constitutional Present: mild distress, well nourished, well developed, morbidly obese, diaphoretic, cooperative, somnolent - Routine HEENT Exam Head: Present: normocephalic, atraumatic Eye: Present: EOMI ENT: Present: mucous membranes moist. Absent: dentition normal (edentulous) - Routine Neck Exam Present: supple. Absent: lymphadenopathy - Routine Respiratory Exam Present: CTA bilaterally, diminished air movement (in the bases). Absent: wheezes - Routine Cardiovascular Exam Present: RRR. Absent: murmur - Routine Abdominal Exam Present: soft, normoactive bowel sounds, tenderness (tender to palpation in the left lower abdomen and into the left flank and lower back. She has ecchymosis and swelling to the left lower abdominal pannus.), non distended - Routine Extremities Exam Present: edema (pitting 2+ pedal) Comments: Weak radial pulses - Routine Skin Exam Present: pallor Comments: Clammy, diaphoretic - Routine Neurological Exam Present: alert (but keeps her eyes closed due to dizziness), oriented X3, moving all extremities - Routine Psychiatric Exam Present: normal affect, normal thought process, cooperative Results - Labs CBC & Chem 7: 04/16/17 09:33 Labs: Laboratory Tests Laboratory Tests 04/13/17 04/14/17 04/16/17 04:36 03:53 05:37 Creatinine 1.3 H D 1.2 1.7 H D Laboratory Tests 04/13/17 04/14/17 04/16/17 04:36 03:53 05:37 BUN 60.0 H* 55.0 H* 54.0 H* Laboratory Tests 04/14/17 04/16/17 04/16/17 03:53 05:37 09:33 Hgb 9.3 L 7.8 L D 6.6 L D Laboratory Tests 02/13/17 14:02 TSH 2.16 - Echocardiogram Echocardiogram: DATE OF PROCEDURE January 01, 2017. This is a two-dimensional echo with spectral Doppler, color-flow and M-mode. It was obtained in a patient with atrial flutter. Left atrial dimension is normal. Left ventricular end-diastolic dimension is normal. Left ventricular wall thickness is normal. LV systolic function is normal with ejection fraction of 57%. Right atrium is normal. Right ventricle is normal. Aortic root dimension is normal. Mitral valve is morphologically normal with trace of mitral regurgitation. Aortic valve was not visualized well. However, fibrocalcific changes are present with no evidence of stenosis or insufficiency by Doppler studies. Tricuspid valve shows trace of tricuspid regurgitation with normal estimated pulmonary artery systolic pressure of 21. Pulmonary valve shows no pulmonary insufficiency. There is no pericardial effusion. IMPRESSION 1. Technically difficult study. 2. Normal LV systolic function with ejection fraction of 57%. 3. Trace of mitral regurgitation. 4. Aortic sclerosis. 5. Trace of tricuspid regurgitation with normal estimated pulmonary artery systolic pressure of 21. - Imaging and Cardiology CT chest, abdomen, pelvis Additional comments: PROCEDURE: CT chest abd/pelvis w con: Findings: Chest: No pneumothorax. Small right pleural effusion. Right pulmonary calcification could represent a calcified granuloma. Atelectasis in the right lower lobe. Mild left basilar atelectasis or scarring is well. The central airways are patent. This exam was not tailored for evaluation of the aorta but there is no obvious evidence of aortic dissection. No aortic aneurysm identified. Great vessel origins are unremarkable. No axillary or mediastinal adenopathy. Heart is mildly enlarged without pericardial effusion. Cardiac pacemaker device noted. Abdomen/pelvis: Attenuation artifact due to patient body habitus. No evidence of aortic dissection or aneurysm. A large amount of the patient's pannus is excluded from the [id number]. There is asymmetrically increased high attenuation material along the left lateral abdominal wall seen best on axial image #59 measuring up to 13.7 x 12.2 x 5.5 cm in diameter which extends off the field of view laterally. This has an attenuation of 78 Hounsfield units consistent with acute hemorrhage. This involves the musculature just above the level of the iliac crests. No evidence of free intraperitoneal air or free intraperitoneal hemorrhage. The liver is slightly nodular in configuration without focal mass or bile duct dilatation. The gallbladder is apparently surgically absent. The spleen, pancreas and adrenal glands are within normal limits. Areas of left renal cortical loss and scarring within lower pole left renal stone. Right kidney is grossly unremarkable. No abdominal or pelvic lymphadenopathy. Small amount of gas within anterior bladder. Uterus is absent. Scattered colonic diverticulosis without evidence of diverticulitis. Large amount of stool in the cecum. No small bowel obstruction. No retroperitoneal hematoma. Bone windows show degenerative change in the spine. Impression: 1. Large acute hematoma associated with the left lower lateral abdominal wall musculature as described and measured above. 2. Although the exam was not specifically tailored for the evaluation of the aorta there is no evidence of aortic aneurysm or dissection. 3. Right lower lobe atelectasis and small right effusion. Assessment and Plan (1) Abdominal hemorrhage Current visit: Yes Status: Acute (2) Anemia associated with acute blood loss Current visit: Yes Status: Acute (3) HTN (hypertension) Current visit: No Status: Chronic (4) Diabetes mellitus type 2 in obese Current visit: No Status: Chronic (5) CKD (chronic kidney disease) stage 3, GFR 30-59 ml/min Current visit: No Status: Chronic (6) Hypothyroidism Current visit: No Status: Chronic (7) Hypotension due to blood loss Current visit: Yes Status: Acute Assessment and Plan: Assessment Acute blood loss anemia Abdominal hemorrhage-likely muscular etiology Hypotension likely secondary to blood loss anemia Recent AV ablation for atrial fibrillation Status post right pacemaker implantation Diabetes mellitus (A1c 6.9%) O2 dependent Hypothyroidism Dyslipidemia Insomnia Temporal arteritis (requiring prednisone) Chronic kidney disease stage III-with recent acute kidney injury Iron deficiency anemia Hypertension GERD Nephrolithiasis (history of stents) Fibromyalgia Depression Psoriasis Osteoarthritis Plan Patient admitted to CCU under the care of Dr. Rucker for acute blood loss anemia , hypotension, and abdominal hemorrhage. Will run normal saline until blood products are ready to be given. Order given to transfuse 2 units of PRBCs. Monitor pressures closely. Will add pressors if needed. Xarelto has been held. Will hold all routine medications until patient is more stable. Sliding scale insulin as needed. Hope to be able to have pt return to rehab when stable. Pt wishes to be a full code. Plan discussed with Dr. Rucker and CCU nurses. Dr. Rucker to provide further plan of care. Care to return to Dr Goodson after dismissal. (Dr. Irby has checked patient out to the hospitalist service.) Resuscitation Status: Full Code Hospital Course Summary Disclaimer: The visit summary below is not to be considered part of the above Progress Note. Hospital Course: Assessment Acute blood loss anemia Abdominal hemorrhage-likely muscular etiology Hypotension likely secondary to blood loss anemia Recent AV ablation for atrial fibrillation Status post right pacemaker implantation Diabetes mellitus (A1c 6.9%) O2 dependent Hypothyroidism Dyslipidemia Insomnia Temporal arteritis (requiring prednisone) Chronic kidney disease stage III-with recent acute kidney injury Iron deficiency anemia Hypertension GERD Nephrolithiasis (history of stents) Fibromyalgia Depression Psoriasis Osteoarthritis 04/16/17 - CCU admission Patient admitted to CCU under the care of Dr. Rucker for acute blood loss anemia , hypotension, and abdominal hemorrhage. Will run normal saline until blood products are ready to be given. Order given to transfuse 2 units of PRBCs. Monitor pressures closely. Will add pressors if needed. Xarelto has been held. Will hold all routine medications until patient is more stable. Sliding scale insulin as needed. Hope to be able to have pt return to rehab when stable. Pt wishes to be a full code. Plan discussed with Dr. Rucker and CCU nurses. Dr. Rucker to provide further plan of care. Care to return to Dr Goodson after dismissal. (Dr. Irby has checked patient out to the hospitalist service.) <Irvin Rucker P - Last Filed: 04/16/17 18:33> History of Present Illness Date: 04/16/17 HPI: Seen and examined at time of arrival to ICU patient complaining of pain on the left aspect of the thigh and pannus (where corollary bruising is apparent). Blood pressures alone when she has significant power. She's been on Xarelto throughout her stay in the IRU. She complains of pain weakness and lightheadedness which has worsened over the course of last updated 2 days. [facility] Patient Stated Medical History Peripheral Neuropathy Yes Cataracts Yes Macular Degeneration Yes Other HEENT glasses for nearsighted Angina Yes Cardiac Arrhythmia Yes: a fib/flutter Hypertension Yes Bronchitis Yes Sleep Apnea Yes Diabetes Mellitus Type 2 Yes Constipation Yes Gastroesophageal Reflux Yes Disease Other GI Yes: IBS,hemarroids Hx Incontinence Yes Hx Urinary Tract Infection Yes Other Yes: stents after kidney stone removal ,removed Osteoarthritis Yes Other Musculoskeletal Yes: fibrymalgia Sepsis Yes Other Infectious Yes: psorasis Depression Yes Post Menopausal Yes Clinic Medical History Hip strain (Acute Medical) Atrial flutter (Chronic Medical) HTN (hypertension) (Chronic Medical) Hypothyroidism (Chronic Medical) Osteoarthritis (Chronic Medical) Hypoxia (Acute Medical) Temporal arteritis (Chronic Medical) Chest pain (Acute Medical) Hyperlipidemia (Chronic Medical) Chronic respiratory failure (Chronic Medical) Chronic 2L home O2 Atrial fibrillation with RVR (Acute Medical) Chest pain (Acute Medical) Oxygen dependent (Chronic Medical) Fibromyalgia (Chronic Medical) Chronic steroid use (Chronic Medical) Chest pain (Acute Medical) Morbid obesity (Chronic Medical) UTI due to extended-spectrum beta lactamase (ESBL) producing Escherichia coli ( Acute Medical) 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 (Resolved Medical) Diabetes mellitus type 2 in obese (Chronic Medical) Anemia (Chronic Medical) CKD (chronic kidney disease) stage 3, GFR 30-59 ml/min (Chronic Medical) Myopathy (Acute Medical) PAF (paroxysmal atrial fibrillation) (Resolved Medical) Presence of cardiac pacemaker (Chronic Medical) UTI (urinary tract infection), bacterial (Acute Medical) Dry mouth (Acute Medical) Insomnia (Acute Medical) Anemia associated with acute blood loss (Acute Medical) Abdominal hemorrhage (Acute Medical) Hypotension due to blood loss (Acute Medical) Cataracts, bilateral (Acute Medical) Diabetes 1.5, managed as type 2 (Acute Medical) Dyslipidemia (Acute Medical) Fibromyalgia (Acute Medical) Hypertension (Acute Medical) Hypothyroidism (Acute Medical) aquired Idiopathic pancreatitis (Acute Medical) Insomnia (Acute Medical) Osteoarthritis (Acute Medical) Psoriasis arthropathica (Acute Medical) AF (paroxysmal atrial fibrillation) (Resolved Medical) Contusion (Inactive Medical) Family History: Family History Father Blood clots in brain Unknown Hypertension Breast cancer Mother Breast cancer Diabetes Myocardial infarct Stroke Exam Vital Signs: Temperature 96.8 F 04/16/17 15:12 Pulse Rate 69 04/16/17 16:19 Respiratory Rate 20 04/16/17 16:19 Blood Pressure 94/46 04/16/17 15:12 Pulse Oximetry 100 04/16/17 16:19 Height/Weight/BMI: Height 4 ft 11 in Weight 158.9 kg Body Mass Index 70.7 - Additional findings Additional findings: Super morbid obese patient with a BMI greater than 70, Palin slightly diaphoretic while blood pressures a suboptimal but is still responsive. Bruising noted across the left thigh into the pannus. Results - Labs CBC & Chem 7: 04/16/17 17:29 Assessment and Plan (1) HTN (hypertension) Current visit: No Status: Chronic (2) Hypothyroidism Current visit: No Status: Chronic (3) Diabetes mellitus type 2 in obese Current visit: No Status: Chronic (4) CKD (chronic kidney disease) stage 3, GFR 30-59 ml/min Current visit: No Status: Chronic (5) Anemia associated with acute blood loss Current visit: Yes Status: Acute (6) Abdominal hemorrhage Current visit: Yes Status: Acute (7) Hypotension due to blood loss Current visit: Yes Status: Acute Assessment and Plan: As per the CT study I've evaluated personally CT reported read it appears that the bleed is localized in the subcutaneous tissue outside the thigh and abdomen. There appears to be no source bleed. Normally this would be rather minor blood volume loss but the patient is extremely corpulent and may have lost as much is 2 units into the subcutaneous tissue. She was typed and given an initial 2 units packed red blood cells. She complains pain and was initially given her by overdose tramadol. Initial blood pressures were only 70/30 but responded to bolus fluids and she has very poor vascular access and has already failed placement of the midline. We will request vascular access from surgery Afternoon update: 2 units packed red blood cells with 500 mL bolus normal saline has restored her to essentially normotensive status. As half-life of the Xarelto is 10 to 12 hours I would continue to monitor her hemoglobin Q6 hours throughout the course of the next day. Additional 2 units packed red blood cells have been placed on order. She continue to have pain exceeded the tramadol dose and so I placed her on the short course Percocet for the time. As she was vascular compromised only a few hours ago I am reluctant to add IV narcotics at this time. Pressures now 105/50 a map greater than 70. Patient will remain in the ICU overnight. If next hemoglobin is less than 8 as patient does have super morbid obesity, we will transfuse 1 to 2 more units. Hospital Course Summary Disclaimer: The visit summary below is not to be considered part of the above Progress Note.
--- NOTE | 2017-04-16 16:00 | Consultation ---
DATE: 04/16/17 FINDINGS The following dictation is obtained from the patient's chart, the patient, as well as nursing staff. It appeared that the patient was transferred to our facility for rehab on April 10. The patient had some cardiac complications in [place] and was transferred to our facility for strengthening and conditioning. The patient has been making good progress on the rehab unit. She was getting close to meeting her ADLs. This morning apparently the patient began to complain of feeling somewhat "dizzy" as well as some left flank pain. Nursing staff assessed the patient and she was found to be hypotensive with a systolic blood pressure in the 60s. Given this acute change the patient was transferred to the ICU for further care. Nursing staff had difficulty in obtaining adequate IV access. The patient was bolused with some saline and stabilized. She did undergo a CT scan the abdomen and pelvis and was found to have a large acute hematoma involving the left lateral abdominal wall and musculature. Blood has been ordered. IV access was lost and a "stat request for central line was placed". The patient was on antiplatelet therapy as a result of her history for atrial fibrillation. Upon entering the room the patient was awake and alert. Her sister was present who also provided some information. PAST MEDICAL HISTORY Performed by my nurse practitionerGraham. PAST SURGICAL HISTORY Performed by my nurse practitionerGraham. MEDICATIONS Performed by my nurse practitionerGraham. ALLERGIES Performed by my nurse practitionerGraham. SOCIAL HISTORY Performed by my nurse practitionerGraham. FAMILY HISTORY Performed by my nurse practitionerGraham. REVIEW OF SYSTEMS Performed by my nurse practitionerGraham. PHYSICAL EXAMINATION Mrs. Rogers is a 71-year-old female who did appear to be in some distress. VITALS: Temperature 96.9, pulse 69. Last recorded blood pressure was 90/44. SAO2 100%. HEENT: Normocephalic. Pupils are equally round and react to light and accommodation. CHEST: Clear to auscultation bilaterally. HEART: Regular rate and rhythm. Normal S1 and S2 without gallops, murmurs or clicks. ABDOMEN: Palpation in the midportion of the abdomen revealed it to be soft. I did not lift the patient's gown and evaluate her lateral abdominal wall nor did I perform a complete abdominal examination. EXTREMITIES: A component of edema. No cyanosis. NEURO: Cranial nerves II-XII grossly intact. Patient appeared to be without focal motor or sensory deficit. ASSESSMENT 71-year-old female with development of large abdominal wall hematoma. Inadequate peripheral IV access. PLAN Insertion of central line. I informed the patient and her sister that at this point in time I would recommend proceeding with placement of a right internal jugular triple-lumen catheter. I did inform the patient and her sister that she was at an increased risk from a bleeding standpoint given the fact that she is anticoagulated. I also discussed potential for hemopneumothorax. Patient and sister understood and wished proceed. MTDD
[2017-04-16] MEDS ORDERED: INFLUENZA VAC. INJ. ADMIN CHARGE INJ ONE (18:00)
--- NOTE | 2017-04-16 18:19 | General Surgery Consult Note ---
Consult date: 04/16/17 Attending Physician: Irvin Rucker MD Reason for consult: central line [facility] Patient Stated Medical History Peripheral Neuropathy Yes Cataracts Yes Macular Degeneration Yes Other HEENT glasses for nearsighted Angina Yes Cardiac Arrhythmia Yes: a fib/flutter Hypertension Yes Bronchitis Yes Sleep Apnea Yes Diabetes Mellitus Type 2 Yes Constipation Yes Gastroesophageal Reflux Yes Disease Other GI Yes: IBS,hemarroids Hx Incontinence Yes Hx Urinary Tract Infection Yes Other Yes: stents after kidney stone removal ,removed Osteoarthritis Yes Other Musculoskeletal Yes: fibrymalgia Sepsis Yes Other Infectious Yes: psorasis Depression Yes Post Menopausal Yes Clinic Medical History Hip strain (Acute Medical) Atrial flutter (Chronic Medical) HTN (hypertension) (Chronic Medical) Hypothyroidism (Chronic Medical) Osteoarthritis (Chronic Medical) Hypoxia (Acute Medical) Temporal arteritis (Chronic Medical) Chest pain (Acute Medical) Hyperlipidemia (Chronic Medical) Chronic respiratory failure (Chronic Medical) Chronic 2L home O2 Atrial fibrillation with RVR (Acute Medical) Chest pain (Acute Medical) Oxygen dependent (Chronic Medical) Fibromyalgia (Chronic Medical) Chronic steroid use (Chronic Medical) Chest pain (Acute Medical) Morbid obesity (Chronic Medical) UTI due to extended-spectrum beta lactamase (ESBL) producing Escherichia coli ( Acute Medical) 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 (Resolved Medical) Diabetes mellitus type 2 in obese (Chronic Medical) Anemia (Chronic Medical) CKD (chronic kidney disease) stage 3, GFR 30-59 ml/min (Chronic Medical) Myopathy (Acute Medical) PAF (paroxysmal atrial fibrillation) (Resolved Medical) Presence of cardiac pacemaker (Chronic Medical) UTI (urinary tract infection), bacterial (Acute Medical) Dry mouth (Acute Medical) Insomnia (Acute Medical) Anemia associated with acute blood loss (Acute Medical) Abdominal hemorrhage (Acute Medical) Hypotension due to blood loss (Acute Medical) Cataracts, bilateral (Acute Medical) Diabetes 1.5, managed as type 2 (Acute Medical) Dyslipidemia (Acute Medical) Fibromyalgia (Acute Medical) Hypertension (Acute Medical) Hypothyroidism (Acute Medical) aquired Idiopathic pancreatitis (Acute Medical) Insomnia (Acute Medical) Osteoarthritis (Acute Medical) Psoriasis arthropathica (Acute Medical) AF (paroxysmal atrial fibrillation) (Resolved Medical) Contusion (Inactive Medical) Medical History Updates: A-fib: now s/p ablation and PPM in place. Diabetes mellitus. hypertension. hyperlipidemia. Temporal arteritis: still requiring prednisone. Anemia. Chronic kidney disease. Recent acute kidney injury. GERD. thyroid disease. anxiety. O2 dependent Surgical History: Tubal ligation. Hysterectomy without BSO. Thyroidectomy. Cholecystectomy. Cataract surgery. Pacemaker implantation 2016. Cardioversion 01/01/2017 Family History: Family History Father Blood clots in brain Unknown Hypertension Breast cancer Mother Breast cancer Diabetes Myocardial infarct Stroke - Social History Smoking status: Former smoker Current residence: Apartment/Private Home Medications Home Medications Medication Instructions Recorded Confirmed Type Pantoprazole Sodium [Protonix] 40 mg PO ACB #0 01/25/16 04/16/17 History Cholecalciferol (Vitamin D3) 1,000 unit PO DAILY 02/13/17 04/16/17 History [Vitamin D3] DiphenhydrAMINE [Benadryl] 25 mg PO Q8HR 02/13/17 04/16/17 History Gemfibrozil [Lopid] 600 mg PO ACBID 02/13/17 04/16/17 History Magnesium Oxide [Magnesium] 400 mg PO DAILY 02/13/17 04/16/17 History Multivit,Calc,Mins/Iron/Folic 1 tab PO DAILY 02/13/17 04/16/17 History [Women's Daily Caplet] Sucralfate [Carafate] 1 gm PO BID 02/13/17 04/16/17 History Tizanidine HCl 4 mg PO BID PRN 02/13/17 04/16/17 History diltiazem CD 240 mg 240 mg PO BID 30 Days #60 03/05/17 04/16/17 History capsule,extended release 24 hr Docusate Sodium [Colace] 1 cap PO BID 04/09/17 04/16/17 History Ferrous Sulfate 325 mg PO DAILY 04/09/17 04/16/17 History Rivaroxaban [Xarelto] 20 mg PO WS 04/09/17 04/16/17 History Sennosides 8.6 mg PO BID 04/09/17 04/16/17 History Tramadol [Ultram] 50 mg PO Q6HR PRN 04/09/17 04/16/17 History Allergies Allergy/AdvReac Type Severity Reaction Status Date / Time aspirin Allergy Severe Anaphylactic Verified 04/09/17 23:13 Shock levofloxacin [From Levaquin] Allergy Severe Anaphylactic Verified 04/09/17 23:13 Shock Penicillins Allergy Severe Anaphylactic Verified 04/09/17 23:13 Shock Sulfa (Sulfonamide Allergy Severe Anaphylactic Verified 04/09/17 23:13 Antibiotics) Shock Latex, Natural Rubber Allergy Intermediate Rash Verified 04/09/17 23:13 [id number] Reductase Allergy Intermediate muscle Verified 04/09/17 23:13 Inhibitor weakness codeine Allergy Mild Nausea and Verified 04/09/17 23:13 Vomiting Iodine and Iodide Containing Allergy Mild Rash Verified 04/09/17 23:13 Produc niacin Allergy Flushing Verified 04/09/17 19:41 butorphanol [From Stadol] AdvReac Severe aggressive Verified 04/09/17 23:13 behavior morphine AdvReac Nausea and Verified 03/11/17 07:06 Vomiting Review of Systems 10-point ROS: negative except for HPI and the following: - Cardiovascular Cardiovascular: Present: palpitations - Gastrointestinal Gastrointestinal: Present: other (abd paina) - Musculoskeletal Musculoskeletal: Present: back pain, joint pain - Neurological Neurological: Present: muscle weakness - Psychiatric Psychiatric: Present: anxiety, other (hallucinations) - Vital Signs Last Vital Signs Temp 96.8 F 04/16/17 15:12 Pulse 69 04/16/17 16:19 Resp 20 04/16/17 16:19 BP 94/46 04/16/17 15:12 Pulse Ox 100 04/16/17 16:19 - Laboratory Result Diagrams: 04/16/17 17:29 General Surgery Results - Results Labs: 04/16/17 17:29 Hospital Course Summary Disclaimer: The visit summary below is not to be considered part of the above Progress Note. Hospital Course: Assessment Acute blood loss anemia Abdominal hemorrhage-likely muscular etiology Hypotension likely secondary to blood loss anemia Recent AV ablation for atrial fibrillation Status post right pacemaker implantation Diabetes mellitus (A1c 6.9%) O2 dependent Hypothyroidism Dyslipidemia Insomnia Temporal arteritis (requiring prednisone) Chronic kidney disease stage III-with recent acute kidney injury Iron deficiency anemia Hypertension GERD Nephrolithiasis (history of stents) Fibromyalgia Depression Psoriasis Osteoarthritis 04/16/17 - CCU admission Patient admitted to CCU under the care of Dr. Rucker for acute blood loss anemia , hypotension, and abdominal hemorrhage. Will run normal saline until blood products are ready to be given. Order given to transfuse 2 units of PRBCs. Monitor pressures closely. Will add pressors if needed. Xarelto has been held. Will hold all routine medications until patient is more stable. Sliding scale insulin as needed. Hope to be able to have pt return to rehab when stable. Pt wishes to be a full code. Plan discussed with Dr. Rucker and CCU nurses. Dr. Rucker to provide further plan of care. Care to return to Dr Goodson after dismissal. (Dr. Iryb has checked patient out to the hospitalist service.)
[2017-04-16] MEDS ORDERED: INFLUENZA VAC High Dose 2017-18 (Fluzone HD*) (>=65yo) 0.5ml IM ONE (20:28)
[2017-04-16] MEDS: INSULIN DETEMIR 100unit/ml INJECTION SQ SCH (20:56)
[2017-04-16] MEDS: TRAMADOL 50 MG TABLET PO PRN (23:27)
[2017-04-17] MEDS: NS 1,000 ML IV SCH ×2 (04:02→12:38)
[2017-04-17] MEDS: TRAMADOL 50 MG TABLET PO PRN ×3 (05:20→21:14)
[2017-04-17] MEDS: LEVOTHYROXINE 150 MCG TABLET PO SCH (06:10)
[2017-04-17] MEDS: Oxycodone/Acetaminophen 5/325 1 TAB PO PRN ×2 (09:33→17:59)
[2017-04-17] MEDS: ONDANSETRON 4 MG/2 ML INJECTION IVP PRN (11:20)
--- NOTE | 2017-04-17 15:24 | Progress Note ---
- Date 04/17/17 Subjective: Seen in the ICU Mrs. Rogers states that she is less weak dizzy nauseated and disoriented. She states however that she feels "nowhere near as good as I did a few days ago." She states with pain in the left side is still significant. She states the tramadol had not been holding but the increased Percocet appears to be doing "okay". When asked if she feels she can return to IRU she states she has nowhere near close to being able to manage participation with physical therapy yet. Objective Vital signs: Temperature 96.9 F 04/17/17 08:00 Pulse Rate 69 04/17/17 12:46 Respiratory Rate 24 04/17/17 12:46 Blood Pressure 113/54 04/17/17 12:46 Pulse Oximetry 96 04/17/17 12:46 Rhythm: Normal Sinus Rhythm Cardiac Ectopy: Occasional PVC's Height/Weight/BMI: Height 4 ft 11 in Weight 162 kg Body Mass Index 70.7 - Constitutional Present: well nourished, well developed, morbidly obese - Routine HEENT Exam Head: Present: normocephalic, cushingoid faces Eye: Present: EOMI, PERRL, normal accommodation ENT: Present: mucous membranes moist, dentition normal - Routine Respiratory Exam Present: CTA bilaterally, distant breath sounds. Absent: wheezes - Routine Cardiovascular Exam Present: RRR, S1, S2. Absent: murmur - Routine Abdominal Exam Present: soft, normoactive bowel sounds, distended. Absent: tenderness Comments: Diffuse bruising to the left side and pannus. - Routine Extremities Exam Present: edema, normal capillary refill - Routine Skin Exam Present: dry, warm Comments: Flank and pannus bruising on the left side - Routine Neurological Exam Present: alert, oriented X3, CN II-XII intact - Routine Lymphatic Exam Lymphatic: Absent: adenopathy - Routine Psychiatric Exam Present: normal thought process, anxious Results - Labs CBC & Chem 7: 04/17/17 08:17 04/17/17 08:17 Assessment and Plan (1) HTN (hypertension) Current visit: No Status: Chronic (2) Hypothyroidism Current visit: No Status: Chronic (3) Diabetes mellitus type 2 in obese Current visit: No Status: Chronic (4) CKD (chronic kidney disease) stage 3, GFR 30-59 ml/min Current visit: No Status: Chronic (5) Anemia associated with acute blood loss Current visit: Yes Status: Acute (6) Abdominal hemorrhage Current visit: Yes Status: Acute (7) Hypotension due to blood loss Current visit: Yes Status: Acute Assessment and Plan: Assessment Acute blood loss anemia Abdominal hemorrhage-likely muscular etiology Hypotension likely secondary to blood loss anemia Recent AV ablation for atrial fibrillation Status post right pacemaker implantation Diabetes mellitus (A1c 6.9%) O2 dependent Hypothyroidism Dyslipidemia Insomnia Temporal arteritis (requiring prednisone) Chronic kidney disease stage III-with recent acute kidney injury Iron deficiency anemia Hypertension GERD Nephrolithiasis (history of stents) Fibromyalgia Depression Psoriasis Osteoarthritis Plan Patient received 2 units packed red blood cells in the ICU yesterday and although her hemoglobin appears to be outside of dire straits, she has the diagnosis of super morbid obesity with a BMI greater than 70. She is still symptomatically anemic and I'm inclined to think that she will require hemoglobin greater than 10 just to be even nominally functional. Thankfully she has a pacemaker stabilizing her cardiac condition. I will transfused 3rd unit of packed red blood cells and transfer to the medical floor. I've discussed this case with Dr. Dixon and the physical education teacher for IRU. They report that she has been working with physical therapy quite well the last few days prior to the bleed and if she requires a recovery time to turn to the proper frame of mind for participation that they will refrain from attempting to place her immediately back in IRU but will go through the formality of reassessing her Thursday. Patient to move to regular medical floor at this time. Hospital Course Summary Disclaimer: The visit summary below is not to be considered part of the above Progress Note. Hospital Course: Assessment Acute blood loss anemia Abdominal hemorrhage-likely muscular etiology Hypotension likely secondary to blood loss anemia Recent AV ablation for atrial fibrillation Status post right pacemaker implantation Diabetes mellitus (A1c 6.9%) O2 dependent Hypothyroidism Dyslipidemia Insomnia Temporal arteritis (requiring prednisone) Chronic kidney disease stage III-with recent acute kidney injury Iron deficiency anemia Hypertension GERD Nephrolithiasis (history of stents) Fibromyalgia Depression Psoriasis Osteoarthritis 04/16/17 - CCU admission Patient admitted to CCU under the care of Dr. Rucker for acute blood loss anemia , hypotension, and abdominal hemorrhage. Will run normal saline until blood products are ready to be given. Order given to transfuse 2 units of PRBCs. Monitor pressures closely. Will add pressors if needed. Xarelto has been held. Will hold all routine medications until patient is more stable. Sliding scale insulin as needed. Hope to be able to have pt return to rehab when stable. Pt wishes to be a full code. Plan discussed with Dr. Rucker and CCU nurses. Dr. Rucker to provide further plan of care. Care to return to Dr Goodson after dismissal. (Dr. Irby has checked patient out to the hospitalist service.) As per the CT study I've evaluated personally CT reported read it appears that the bleed is localized in the subcutaneous tissue outside the thigh and abdomen. There appears to be no source bleed. Normally this would be rather minor blood volume loss but the patient is extremely corpulent and may have lost as much is 2 units into the subcutaneous tissue. She was typed and given an initial 2 units packed red blood cells. She complains pain and was initially given her by overdose tramadol. Initial blood pressures were only 70/30 but responded to bolus fluids and she has very poor vascular access and has already failed placement of the midline. We will request vascular access from surgery Afternoon update: 2 units packed red blood cells with 500 mL bolus normal saline has restored her to essentially normotensive status. As half-life of the Xarelto is 10 to 12 hours I would continue to monitor her hemoglobin Q6 hours throughout the course of the next day. Additional 2 units packed red blood cells have been placed on order. She continue to have pain exceeded the tramadol dose and so I placed her on the short course Percocet for the time. As she was vascular compromised only a few hours ago I am reluctant to add IV narcotics at this time. Pressures now 105/50 a map greater than 70. Patient will remain in the ICU overnight. If next hemoglobin is less than 8 as patient does have super morbid obesity, we will transfuse 1 to 2 more units.
--- NOTE | 2017-04-17 15:39 | Procedure Note ---
* DATE OF SERVICE 04/16/2017 SURGEON Benigno Snider MD PREOPERATIVE DIAGNOSIS Inadequate peripheral IV access, large hematoma involving lateral abdominal wall. POSTOPERATIVE DIAGNOSIS Inadequate peripheral IV access, large hematoma involving lateral abdominal wall. PROCEDURE Insertion of triple-lumen catheter under sonographic guidance. ANESTHESIA Local BRIEF HISTORY/INDICATIONS Please refer to consult note. DESCRIPTION OF PROCEDURE After informed consent was obtained, right lateral neck was prepped and draped in sterile fashion. Ultrasonography was then performed and one could see the anatomic location of the internal jugular vein. 1% lidocaine was then injected overlying the internal jugular vein. Next under sonographic guidance, a Cook needle was directly advanced into the internal jugular vein with aspiration. A venous flush was obtained. Guidewire was advanced through the Cook needle and the Cook needle was removed. A 4-5 mm incision was then made adjacent to the guidewire. Next a dilator was then advanced over the guidewire and removed. Next a flush triple-lumen catheter was advanced over the guidewire and the guidewire was removed. Catheter was then secured to the right lateral neck with 2-0 silk. Each line was aspirated and flushed with hep saline. The patient tolerated the procedure without difficulty. Post procedure chest x-ray revealed correct placement of the catheter without evidence for pneumothorax. [id number]
[2017-04-17] MEDS: INSULIN DETEMIR 100unit/ml INJECTION SQ SCH (21:53)
[2017-04-18] MEDS: Oxycodone/Acetaminophen 5/325 1 TAB PO PRN ×3 (05:24→17:56)
[2017-04-18] MEDS: LEVOTHYROXINE 150 MCG TABLET PO SCH (06:34)
[2017-04-18] MEDS: ONDANSETRON 4 MG/2 ML INJECTION IVP PRN (07:08)
[2017-04-18] MEDS: TRAMADOL 50 MG TABLET PO PRN ×2 (07:47→22:30)
[2017-04-18] MEDS ORDERED: RHO(D) IMMUNE GLOBULIN 300 MCG/2 ML INJECTION IVP ONE (09:45)
[2017-04-18] MEDS ORDERED: NS FLUSH BAG 500ml IV PRN (09:59)
[2017-04-18] MEDS: PredniSONE 10 MG TABLET PO SCH (11:23)
[2017-04-18] MEDS: NS 1,000 ML IV SCH ×2 (13:48→22:12)
[2017-04-18] MEDS ORDERED: INSULIN ASPART 100unit/ml INJECTION SQ SCH (14:30)
[2017-04-18] MEDS ORDERED: INSULIN ASPART 100unit/ml INJECTION SQ ONE (14:45)
--- NOTE | 2017-04-18 15:09 | Progress Note ---
- Date 04/18/17 Subjective: Patient is a 71-year-old female who was in our inpatient rehabilitation unit recovering from a prolonged hospital stay following cardiac ablation for atrial fibrillation. On 04/16/17, the nurses noted that her systolic pressure was in the 60s. Patient states she's had pain in the left abdomen and back for the last several days and it became significantly worse at approximately 4-5 that morning. She was given a Zanaflex around 4 AM and [place] at 6 AM. Following this , the nurse noted that she was more pale and patient reports she was seeing "blue castro" on the zaragoza. Patient has never had these symptoms with her muscle relaxer and pain pills in the past. The nurses also had noted some bruising in the left abdominal area which was not there several days ago. Once notified of the low pressures, the patient was evaluated and found to be pale and diaphoretic. She was lucid and able to answer questions, but was in quite a bit of pain. In lieu of the bruising to the left lower abdomen and pain in this area, stat CT chest/abdomen/pelvis was ordered and revealed blood collection superficially in the area of her pain. Given her clinical deterioration of significantly low pressures and acute bleeding on anticoagulation, she was transferred to the CCU for higher level of care. She has about a one-year history of atrial fibrillation. The patient did undergo direct current cardioversion on 01/01/2017. This helped for about 3 weeks and then she reverted back to atrial fibrillation. Sotalol initially was tried and was somewhat successful and then she was changed to diltiazem. Ejection fraction is noted to be 57%. The patient underwent electrophysiologic study and radiofrequency ablation on in [place]. According to the patient this changed her from atrial fibrillation to atrial flutter. She underwent a second ablation procedure of the AV node on 04/02/[address] Tan in [place]. She is followed locally by Dr. Chavez. The second AV ablation was successful and a permanent pacemaker was placed at the same time. Unfortunately the right ventricular lead became dislodged and she apparently did have a short episode of asystole lasting 7 seconds according to the patient. She was moved to the intensive care unit in the right ventricular lead was repositioned. She remains in a sling in the left arm and is not to lift anything over 10 pounds for at least one week. She has DM, a history of temporal arteritis and is on steroid therapy, CKD Stg3 , Anemia of iron def and chronic disease. Today, she continues to have some discomfort in her abdomen and back. Her Hgb dropped again today and she was transfused another unit of blood. She denies feeling SOA. No CP, No palp. No nausea. She is eating well. Objective Vital signs: Temperature 96.7 F L 04/18/17 11:55 Pulse Rate 70 04/18/17 11:55 Respiratory Rate 20 04/18/17 11:55 Blood Pressure 118/53 04/18/17 11:55 Pulse Oximetry 90 04/18/17 11:55 Rhythm: Normal Sinus Rhythm Cardiac Ectopy: Occasional PVC's Height/Weight/BMI: Height 1.5 m Weight 163.9 kg Body Mass Index 70.7 Comments: Gen: alert and oriented. NAD Skin: warm and dry HEENT: NC/AT PERRL, EOMI, Sclera, lids and conjunctiva wnl. MMM. OP clear. Neck: No JVD, Carotids 2+ without bruits Lungs: diminished but clear. No rales, rhonchi or wheezes CV: regular. No murmur, rub or gallop Abd: Obese, soft. +BS. TTP diffusely on the left. Diffuse ecchymosis to lower lateral abdominal pannus MS: 2+edema. Neuro: No focal deficits Results - Labs CBC & Chem 7: 04/18/17 13:50 04/18/17 09:27 Assessment and Plan (1) HTN (hypertension) Current visit: No Status: Chronic (2) Hypothyroidism Current visit: No Status: Chronic (3) Diabetes mellitus type 2 in obese Current visit: No Status: Chronic (4) CKD (chronic kidney disease) stage 3, GFR 30-59 ml/min Current visit: No Status: Chronic (5) Anemia associated with acute blood loss Current visit: Yes Status: Acute (6) Abdominal hemorrhage Current visit: Yes Status: Acute (7) Hypotension due to blood loss Current visit: Yes Status: Acute Assessment and Plan: Assessment 1. Acute blood loss anemia -S/P 4 units of PRBCs since admission -Abdominal hemorrhage, ?etiology -Associated hypotension-improved with transfusions -Recent afib ablation and avn ablation with PPM -S/P PPM 2. Diabetes mellitus (A1c 6.9%) -Insulin -Good readings 3. O2 dependent -Prob JABARI/OHVS 4. Hypothyroidism -On supplements 5. Dyslipidemia -No on a statin 6. Temporal arteritis (requiring prednisone) -Resume prednisone 7. Chronic kidney disease stage III-with recent acute kidney injury -Stable at present -H/O Nephrolithiasis with stents 8. Iron deficiency anemia -On iron replacements 9. Hypertension -On cardizem -Good control 10. GERD -Protonix 11. Prophylaxis -PPI, SCDs Plan Most of these bleeds auto tamponade and I would expect this to as well. Will continue to hold OAC. Rehab to reassess Thursday. Hospital Course Summary Disclaimer: The visit summary below is not to be considered part of the above Progress Note. Hospital Course: Assessment Acute blood loss anemia Abdominal hemorrhage-likely muscular etiology Hypotension likely secondary to blood loss anemia Recent AV ablation for atrial fibrillation Status post right pacemaker implantation Diabetes mellitus (A1c 6.9%) O2 dependent Hypothyroidism Dyslipidemia Insomnia Temporal arteritis (requiring prednisone) Chronic kidney disease stage III-with recent acute kidney injury Iron deficiency anemia Hypertension GERD Nephrolithiasis (history of stents) Fibromyalgia Depression Psoriasis Osteoarthritis 04/16/17 - CCU admission Patient admitted to CCU under the care of Dr. Rucker for acute blood loss anemia , hypotension, and abdominal hemorrhage. Will run normal saline until blood products are ready to be given. Order given to transfuse 2 units of PRBCs. Monitor pressures closely. Will add pressors if needed. Xarelto has been held. Will hold all routine medications until patient is more stable. Sliding scale insulin as needed. Hope to be able to have pt return to rehab when stable. Pt wishes to be a full code. Plan discussed with Dr. Rucker and CCU nurses. Dr. Rucker to provide further plan of care. Care to return to Dr Goodson after dismissal. (Dr. Irby has checked patient out to the hospitalist service.) As per the CT study I've evaluated personally CT reported read it appears that the bleed is localized in the subcutaneous tissue outside the thigh and abdomen. There appears to be no source bleed. Normally this would be rather minor blood volume loss but the patient is extremely corpulent and may have lost as much is 2 units into the subcutaneous tissue. She was typed and given an initial 2 units packed red blood cells. She complains pain and was initially given her by overdose tramadol. Initial blood pressures were only 70/30 but responded to bolus fluids and she has very poor vascular access and has already failed placement of the midline. We will request vascular access from surgery Afternoon update: 2 units packed red blood cells with 500 mL bolus normal saline has restored her to essentially normotensive status. As half-life of the Xarelto is 10 to 12 hours I would continue to monitor her hemoglobin Q6 hours throughout the course of the next day. Additional 2 units packed red blood cells have been placed on order. She continue to have pain exceeded the tramadol dose and so I placed her on the short course Percocet for the time. As she was vascular compromised only a few hours ago I am reluctant to add IV narcotics at this time. Pressures now 105/50 a map greater than 70. Patient will remain in the ICU overnight. If next hemoglobin is less than 8 as patient does have super morbid obesity, we will transfuse 1 to 2 more units.
[2017-04-18] MEDS: INSULIN DETEMIR 100unit/ml INJECTION SQ SCH (21:19)
[2017-04-19] MEDS: Oxycodone/Acetaminophen 5/325 1 TAB PO PRN ×3 (04:19→19:14)
[2017-04-19] MEDS: NS 1,000 ML IV SCH ×2 (05:40→13:25)
[2017-04-19] MEDS: LEVOTHYROXINE 150 MCG TABLET PO SCH (06:33)
[2017-04-19] MEDS: TRAMADOL 50 MG TABLET PO PRN ×2 (06:38→22:26)
[2017-04-19] MEDS: PredniSONE 10 MG TABLET PO SCH (09:33)
[2017-04-19] MEDS: ONDANSETRON 4 MG/2 ML INJECTION IVP PRN (11:11)
[2017-04-19] MEDS ORDERED: FUROSEMIDE 40 MG/4 ML INJECTION IVP ONE (15:04)
--- NOTE | 2017-04-19 15:06 | Progress Note ---
- Date 04/19/17 Subjective: Patient is a 71-year-old female who was in our inpatient rehabilitation unit recovering from a prolonged hospital stay following cardiac ablation for atrial fibrillation. On 04/16/17, the nurses noted that her systolic pressure was in the 60s. Patient states she's had pain in the left abdomen and back for the last several days and it became significantly worse at approximately 4-5 that morning. She was given a Zanaflex around 4 AM and [place] at 6 AM. Following this , the nurse noted that she was more pale and patient reports she was seeing "blue castro" on the zaragoza. Patient has never had these symptoms with her muscle relaxer and pain pills in the past. The nurses also had noted some bruising in the left abdominal area which was not there several days ago. Once notified of the low pressures, the patient was evaluated and found to be pale and diaphoretic. She was lucid and able to answer questions, but was in quite a bit of pain. In lieu of the bruising to the left lower abdomen and pain in this area, stat CT chest/abdomen/pelvis was ordered and revealed blood collection superficially in the area of her pain. Given her clinical deterioration of significantly low pressures and acute bleeding on anticoagulation, she was transferred to the CCU for higher level of care. She has about a one-year history of atrial fibrillation. The patient did undergo direct current cardioversion on 01/01/2017. This helped for about 3 weeks and then she reverted back to atrial fibrillation. Sotalol initially was tried and was somewhat successful and then she was changed to diltiazem. Ejection fraction is noted to be 57%. The patient underwent electrophysiologic study and radiofrequency ablation on in [place]. According to the patient this changed her from atrial fibrillation to atrial flutter. She underwent a second ablation procedure of the AV node on 04/02/[address] Tan in [place]. She is followed locally by Dr. Chavez. The second AV ablation was successful and a permanent pacemaker was placed at the same time. Unfortunately the right ventricular lead became dislodged and she apparently did have a short episode of asystole lasting 7 seconds according to the patient. She was moved to the intensive care unit in the right ventricular lead was repositioned. She remains in a sling in the left arm and is not to lift anything over 10 pounds for at least one week. She has DM, a history of temporal arteritis and is on steroid therapy, CKD Stg3 , Anemia of iron def and chronic disease. Today, she continues to have discomfort in her abdomen and back. Her Hgb dropped a little today but she is also up 6 kg so some may be dilutional. She denies feeling SOA. No CP, No palp. No nausea. She is eating well. She is concerned about having PT with the amount of pain she is having. I told her we would try to coordinate with physical therapy and provide her extra pain medications approximately 45 minutes before they plan on working with her. I did explain to her that our goal is to get her back to baseline. Apparently her baseline is able to stand and maybe take 2 or 3 steps but mostly pivit to transfer from bed chairs. She is quite weak and has only helped turn herself today and not previously. I told her they would start probably with exercises in the bed and then progress to getting her dangling on the side of the bed and subsequently standing. I suspect she'll need further care in the rehab unit once we know her hemoglobin is stabilized. Objective Vital signs: Temperature 98 F 04/19/17 12:00 Pulse Rate 66 04/19/17 12:00 Respiratory Rate 17 04/19/17 12:00 Blood Pressure 137/61 04/19/17 12:00 Pulse Oximetry 94 04/19/17 12:00 Rhythm: Normal Sinus Rhythm Cardiac Ectopy: Occasional PVC's Height/Weight/BMI: Height 1.5 m Weight 169.1 kg Body Mass Index 70.7 Comments: Gen: alert and oriented. NAD Skin: warm and dry HEENT: NC/AT PERRL, EOMI, Sclera, lids and conjunctiva wnl. MMM. OP clear. Neck: No JVD, Carotids 2+ without bruits Lungs: diminished but clear. No rales, rhonchi or wheezes CV: regular. No murmur, rub or gallop Abd: Obese, soft. +BS. TTP diffusely on the left. Diffuse ecchymosis to lower lateral abdominal pannus MS: 2+edema. Neuro: No focal deficits Results - Labs CBC & Chem 7: 04/19/17 04:29 04/19/17 04:29 Microbiology Results: 11/09/2904/18/17 04/18/17 09:27 13:50 18:06 WBC 6.3 RBC 2.75 L Hgb 7.8 L D 9.6 L D 9.9 L Hct 26.2 L 32.3 L D MCV 95.3 MCH 28.4 MCHC 29.8 L RDW Std Deviation 55.6 H Plt Count 174 MPV 9.6 Immature Gran % (Auto) 0.2 Neut % (Auto) 79.8 H Lymph % (Auto) 10.4 L [place] % (Auto) 8.7 Eos % (Auto) 0.9 Baso % (Auto) 0.0 Neut # (Auto) 5.1 Lymph # (Auto) 0.7 L [place] # (Auto) 0.6 Eos # (Auto) 0.1 Baso # (Auto) 0.0 Abs Immat Gran (auto) 0.01 04/19/17 04:29 WBC 6.3 RBC 3.18 L Hgb 9.1 L Hct 30.4 L MCV 95.6 MCH 28.6 MCHC 29.9 L RDW Std Deviation 54.7 H Plt Count 195 MPV 9.7 Immature Gran % (Auto) 0.3 Neut % (Auto) 79.9 H Lymph % (Auto) 10.1 L [place] % (Auto) 9.0 Eos % (Auto) 0.5 Baso % (Auto) 0.2 Neut # (Auto) 5.0 Lymph # (Auto) 0.6 L [place] # (Auto) 0.6 Eos # (Auto) 0.0 Baso # (Auto) 0.0 Abs Immat Gran (auto) 0.02 Assessment and Plan (1) HTN (hypertension) Current visit: No Status: Chronic (2) Hypothyroidism Current visit: No Status: Chronic (3) Diabetes mellitus type 2 in obese Current visit: No Status: Chronic (4) CKD (chronic kidney disease) stage 3, GFR 30-59 ml/min Current visit: No Status: Chronic (5) Anemia associated with acute blood loss Current visit: Yes Status: Acute (6) Abdominal hemorrhage Current visit: Yes Status: Acute (7) Hypotension due to blood loss Current visit: Yes Status: Acute Assessment and Plan: Assessment 1. Acute blood loss anemia -S/P 4 units of PRBCs since admission -Abdominal hemorrhage, ?etiology -Now with +OB stool, but stool is brown and she does have h/o hemorrhoids. -Associated hypotension-improved with transfusions -Recent afib ablation and avn ablation with PPM -Follow H&H 2. Diabetes mellitus (A1c 6.9%) -Insulin -Good readings -On Levemir and mealtime SSI 3. O2 dependent -Prob JABARI/OHVS 4. Hypothyroidism -On supplements 5. Dyslipidemia -No on a statin 6. Temporal arteritis (requiring prednisone) -Prednisone--?need to titrate down 7. Chronic kidney disease stage III-with recent acute kidney injury -Stable at present with normal creatinine -H/O Nephrolithiasis with stents 8. Iron deficiency anemia -On iron replacements 9. Hypertension -On cardizem -Good control 10. GERD -Protonix 11. Prophylaxis -PPI, SCDs Plan Most of these bleeds auto tamponade and I would expect this to as well. Will continue to hold OAC. I doubt there is a significant GIB without melena or frankly blood stools. Rehab to reassess Thursday. Hospital Course Summary Disclaimer: The visit summary below is not to be considered part of the above Progress Note. Hospital Course: Assessment Acute blood loss anemia Abdominal hemorrhage-likely muscular etiology Hypotension likely secondary to blood loss anemia Recent AV ablation for atrial fibrillation Status post right pacemaker implantation Diabetes mellitus (A1c 6.9%) O2 dependent Hypothyroidism Dyslipidemia Insomnia Temporal arteritis (requiring prednisone) Chronic kidney disease stage III-with recent acute kidney injury Iron deficiency anemia Hypertension GERD Nephrolithiasis (history of stents) Fibromyalgia Depression Psoriasis Osteoarthritis 04/16/17 - CCU admission Patient admitted to CCU under the care of Dr. Rucker for acute blood loss anemia , hypotension, and abdominal hemorrhage. Will run normal saline until blood products are ready to be given. Order given to transfuse 2 units of PRBCs. Monitor pressures closely. Will add pressors if needed. Xarelto has been held. Will hold all routine medications until patient is more stable. Sliding scale insulin as needed. Hope to be able to have pt return to rehab when stable. Pt wishes to be a full code. Plan discussed with Dr. Rucker and CCU nurses. Dr. Rucker to provide further plan of care. Care to return to Dr Goodson after dismissal. (Dr. Irby has checked patient out to the hospitalist service.) As per the CT study I've evaluated personally CT reported read it appears that the bleed is localized in the subcutaneous tissue outside the thigh and abdomen. There appears to be no source bleed. Normally this would be rather minor blood volume loss but the patient is extremely corpulent and may have lost as much is 2 units into the subcutaneous tissue. She was typed and given an initial 2 units packed red blood cells. She complains pain and was initially given her by overdose tramadol. Initial blood pressures were only 70/30 but responded to bolus fluids and she has very poor vascular access and has already failed placement of the midline. We will request vascular access from surgery Afternoon update: 2 units packed red blood cells with 500 mL bolus normal saline has restored her to essentially normotensive status. As half-life of the Xarelto is 10 to 12 hours I would continue to monitor her hemoglobin Q6 hours throughout the course of the next day. Additional 2 units packed red blood cells have been placed on order. She continue to have pain exceeded the tramadol dose and so I placed her on the short course Percocet for the time. As she was vascular compromised only a few hours ago I am reluctant to add IV narcotics at this time. Pressures now 105/50 a map greater than 70. Patient will remain in the ICU overnight. If next hemoglobin is less than 8 as patient does have super morbid obesity, we will transfuse 1 to 2 more units.
[2017-04-19] MEDS ORDERED: DEXTROSE 50% SYRINGE 50ml (1 AMP) IVP PRN (15:12)
[2017-04-19] MEDS: PANTOPRAZOLE 40 MG TABLET PO SCH (17:11)
[2017-04-19] MEDS: INSULIN DETEMIR 100unit/ml INJECTION SQ SCH (21:38)
[2017-04-19] MEDS: INSULIN ASPART 100unit/ml INJECTION SQ PRN (21:38)
[2017-04-20] MEDS: Oxycodone/Acetaminophen 5/325 1 TAB PO PRN ×4 (04:02→22:26)
[2017-04-20] MEDS: SALINE FLUSH 10ml SYRINGE IV PRN ×2 (04:05→15:03)
[2017-04-20] MEDS: LEVOTHYROXINE 150 MCG TABLET PO SCH (05:41)
[2017-04-20] MEDS: PANTOPRAZOLE 40 MG TABLET PO SCH ×2 (05:41→17:06)
[2017-04-20] MEDS: PredniSONE 10 MG TABLET PO SCH (09:26)
--- NOTE | 2017-04-20 09:37 | Progress Note ---
<Dhara Arredondo - Last Filed: 04/20/17 09:32> - Date 04/30/17 Subjective: Patient is seen today lying in bed. Was recently in CCU due to acute hypotension and acute blood loss anemia due to abdominal bleeding with unknown etiology. Her Xarelto is on hold and hgb has stabilized. She has no complaints. Wants to work with PT today. No appetite. Bowels are moving. No CP or SOA. Objective Vital signs: Temperature 97.4 F 04/20/17 07:16 Pulse Rate 70 04/20/17 07:16 Respiratory Rate 18 04/20/17 07:16 Blood Pressure 133/65 04/20/17 07:16 Pulse Oximetry 96 04/20/17 07:16 Height/Weight/BMI: Height 1.5 m Weight 166.6 kg Body Mass Index 70.7 - Constitutional Present: no acute distress, well nourished, well developed, morbidly obese - Routine HEENT Exam Head: Present: normocephalic - Routine Cardiovascular Exam Present: RRR, no murmur - Routine Abdominal Exam Present: soft, normoactive bowel sounds, non distended, non tender - Routine Extremities Exam Present: edema (1+b/l ) - Routine Neurological Exam Present: alert, oriented X3 - Routine Psychiatric Exam Present: normal affect, cooperative Results - Labs CBC & Chem 7: 04/20/17 03:58 04/19/17 04:29 Labs: Laboratory Tests 04/18/17 04/18/17 04/19/17 14:06 20:23 06:20 Glucometer 242 218 166 04/19/17 04/19/17 14:57 21:31 Glucometer 226 229 Assessment and Plan (1) HTN (hypertension) Current visit: No Status: Chronic (2) Hypothyroidism Current visit: No Status: Chronic (3) Diabetes mellitus type 2 in obese Current visit: Yes Status: Chronic (4) CKD (chronic kidney disease) stage 3, GFR 30-59 ml/min Current visit: No Status: Chronic (5) Anemia associated with acute blood loss Current visit: Yes Status: Acute (6) Abdominal hemorrhage Current visit: Yes Status: Acute (7) Hypotension due to blood loss Current visit: No Status: Acute Assessment and Plan: Assessment Acute blood loss anemia Abdominal hemorrhage-likely muscular etiology Hypotension likely secondary to blood loss anemia Recent AV ablation for atrial fibrillation Status post right pacemaker implantation Diabetes mellitus (A1c 6.9%) O2 dependent Hypothyroidism Dyslipidemia Insomnia Temporal arteritis (requiring prednisone) Chronic kidney disease stage III-with recent acute kidney injury Iron deficiency anemia Hypertension GERD Nephrolithiasis (history of stents) Fibromyalgia Depression Psoriasis Osteoarthritis Plan Her hemoglobin has stabilized at 9.4 today. Was 9.1 yesterday am. Xarelto still on hold. Continue to monitor. Her BS's have mostly been >200 - increase Levemir from 50U to 55U. Her prednisone was recently resumed likely causing the elevated BS's. OK to advance diet from liquids to concentrated carb diet. VSS's reviewed and stable. PT/OT to work with patient. Hospital Course Summary Disclaimer: The visit summary below is not to be considered part of the above Progress Note. Hospital Course: Assessment Acute blood loss anemia Abdominal hemorrhage-likely muscular etiology Hypotension likely secondary to blood loss anemia Recent AV ablation for atrial fibrillation Status post right pacemaker implantation Diabetes mellitus (A1c 6.9%) O2 dependent Hypothyroidism Dyslipidemia Insomnia Temporal arteritis (requiring prednisone) Chronic kidney disease stage III-with recent acute kidney injury Iron deficiency anemia Hypertension GERD Nephrolithiasis (history of stents) Fibromyalgia Depression Psoriasis Osteoarthritis 04/16/17 - CCU admission Patient admitted to CCU under the care of Dr. Rucker for acute blood loss anemia , hypotension, and abdominal hemorrhage. Will run normal saline until blood products are ready to be given. Order given to transfuse 2 units of PRBCs. Monitor pressures closely. Will add pressors if needed. Xarelto has been held. Will hold all routine medications until patient is more stable. Sliding scale insulin as needed. Hope to be able to have pt return to rehab when stable. Pt wishes to be a full code. Plan discussed with Dr. Rucker and CCU nurses. Dr. Rucker to provide further plan of care. Care to return to Dr Goodson after dismissal. (Dr. Irby has checked patient out to the hospitalist service.) As per the CT study I've evaluated personally CT reported read it appears that the bleed is localized in the subcutaneous tissue outside the thigh and abdomen. There appears to be no source bleed. Normally this would be rather minor blood volume loss but the patient is extremely corpulent and may have lost as much is 2 units into the subcutaneous tissue. She was typed and given an initial 2 units packed red blood cells. She complains pain and was initially given her by overdose tramadol. Initial blood pressures were only 70/30 but responded to bolus fluids and she has very poor vascular access and has already failed placement of the midline. We will request vascular access from surgery Afternoon update: 2 units packed red blood cells with 500 mL bolus normal saline has restored her to essentially normotensive status. As half-life of the Xarelto is 10 to 12 hours I would continue to monitor her hemoglobin Q6 hours throughout the course of the next day. Additional 2 units packed red blood cells have been placed on order. She continue to have pain exceeded the tramadol dose and so I placed her on the short course Percocet for the time. As she was vascular compromised only a few hours ago I am reluctant to add IV narcotics at this time. Pressures now 105/50 a map greater than 70. Patient will remain in the ICU overnight. If next hemoglobin is less than 8 as patient does have super morbid obesity, we will transfuse 1 to 2 more units. 04/17/17 - moved to medical unit Patient received 2 units packed red blood cells in the ICU yesterday and although her hemoglobin appears to be outside of dire straits, she has the diagnosis of super morbid obesity with a BMI greater than 70. She is still symptomatically anemic and I'm inclined to think that she will require hemoglobin greater than 10 just to be even nominally functional. Thankfully she has a pacemaker stabilizing her cardiac condition. I will transfused 3rd unit of packed red blood cells and transfer to the medical floor. I've discussed this case with Dr. Dixon and the director of physical security for IRU. They report that she has been working with physical therapy quite well the last few days prior to the bleed and if she requires a recovery time to turn to the proper frame of mind for participation that they will refrain from attempting to place her immediately back in IRU but will go through the formality of reassessing her Thursday. Patient to move to regular medical floor at this time. 04/18/17 S/P 4 units of PRBCs since admission Resume prednisone Will continue to hold OAC. Rehab to reassess Thursday. 04/19/17 Now with +OB stool, but stool is brown and she does have h/o hemorrhoids.Follow H&H Will continue to hold OAC. I doubt there is a significant GIB without melena or frankly blood stools. Associated hypotension-improved with transfusions Prednisone--?need to titrate down 04/20/17 Her hemoglobin has stabilized at 9.4 today. Was 9.1 yesterday am. Xarelto still on hold. Continue to monitor. Her BS's have mostly been >200 - increase Levemir from 50U to 55U. Her prednisone was recently resumed likely causing the elevated BS's. OK to advance diet from liquids to concentrated carb diet. VSS's reviewed and stable. PT/OT to work with patient. <AbhijitArnaudRose Mary L - Last Filed: 04/20/17 18:30> - Date 04/20/17 Objective Vital signs: Temperature 96.3 F L 04/20/17 15:24 Pulse Rate 69 04/20/17 16:00 Respiratory Rate 20 04/20/17 15:24 Blood Pressure 147/48 H 04/20/17 15:24 Pulse Oximetry 91 04/20/17 15:24 Height/Weight/BMI: Height 1.5 m Weight 166.6 kg Body Mass Index 70.7 Results - Labs CBC & Chem 7: 04/20/17 03:58 04/19/17 04:29 Assessment and Plan (1) HTN (hypertension) Current visit: No Status: Chronic (2) Hypothyroidism Current visit: No Status: Chronic (3) Diabetes mellitus type 2 in obese Current visit: Yes Status: Chronic (4) CKD (chronic kidney disease) stage 3, GFR 30-59 ml/min Current visit: No Status: Chronic (5) Anemia associated with acute blood loss Current visit: Yes Status: Acute (6) Abdominal hemorrhage Current visit: Yes Status: Acute (7) Hypotension due to blood loss Current visit: No Status: Acute Assessment and Plan: 04/20/2017-I reviewed this chart, the patient history, and the CUSTOMER ACCOUNT ADMINISTRATOR's/PA's documented findings as above. We discussed and formulated the assessment and plan as above with the additions below.-Dr. Lacey The patient was seen in her room this evening. She states she feels better after Lasix yesterday. She states she is breathing better. She states she has been more edematous since she has been in the hospital. She has a Wang catheter that was placed when she was transferred to CCU. She states the pain in her lower abdomen is improving. She was able to work with physical therapy today. On exam she is alert and in no acute distress. Chest is clear to auscultation. Cardiac vascular reveals a regular rate and rhythm. She has a new pacemaker and there is no erythema or drainage from the incision. Abdomen is soft with positive bowel sounds. She has a large area of ecchymosis over the lower left abdomen. This area is tender to touch, but she states it's better than it was. Extremities reveal +2 edema bilaterally. Overall, the patient appears to be improving. Hemoglobin is stable. Pain is improving. Recheck CBC tomorrow. Recheck basic metabolic profile tomorrow. We'll likely give Lasix IV again and possibly some scheduled Lasix. Possible transfer back to IRU soon Dr. Chavez is the patient's buccaro. Can reconsult if needed. Hospital Course Summary Disclaimer: The visit summary below is not to be considered part of the above Progress Note.
[2017-04-20] MEDS: INSULIN ASPART 100unit/ml INJECTION SQ PRN ×3 (11:11→21:02)
[2017-04-20] MEDS: ONDANSETRON 4 MG/2 ML INJECTION IVP PRN (15:02)
[2017-04-20] MEDS: TRAMADOL 50 MG TABLET PO PRN (17:19)
[2017-04-20] MEDS: INSULIN DETEMIR 100unit/ml INJECTION SQ SCH (21:01)
[2017-04-21] MEDS: Oxycodone/Acetaminophen 5/325 1 TAB PO PRN ×4 (04:12→23:30)
[2017-04-21] MEDS: LEVOTHYROXINE 150 MCG TABLET PO SCH (06:04)
[2017-04-21] MEDS: PANTOPRAZOLE 40 MG TABLET PO SCH ×2 (06:04→17:36)
[2017-04-21] MEDS: INSULIN ASPART 100unit/ml INJECTION SQ PRN ×2 (06:05→18:11)
[2017-04-21] MEDS: PredniSONE 10 MG TABLET PO SCH (08:27)
[2017-04-21] MEDS ORDERED: FUROSEMIDE 20 MG/2 ML INJECTION IVP ONE (08:54)
--- NOTE | 2017-04-21 09:03 | Progress Note ---
<Dhara Arredondo - Last Filed: 04/21/17 08:59> - Date 04/21/17 Subjective: Patient is seen lying in bed this morning. Overall she continues to improve. She continues to have pain in the left side, rates it at 5/10 at present. She felt the Lasix helped with her breathing. She still feels "puffy" and thinks further Lasix may be beneficial. She does not want to have her catheter taken out today if she is going to get more Lasix. She has been able to get up to the side of the bed, but has not been out of bed. She reports her appetite is "so- so." Objective Vital signs: Temperature 97.0 F 04/21/17 07:40 Pulse Rate 69 04/21/17 07:40 Respiratory Rate 20 04/21/17 07:40 Blood Pressure 153/61 H 04/21/17 07:40 Pulse Oximetry 95 04/21/17 07:40 Rhythm: Normal Sinus Rhythm Cardiac Ectopy: Occasional PVC's Height/Weight/BMI: Height 1.5 m Weight 165.1 kg Body Mass Index 70.7 - Constitutional Present: no acute distress, well nourished, well developed, morbidly obese - Routine Respiratory Exam Present: CTA bilaterally. Absent: wheezes - Routine Cardiovascular Exam Present: RRR, S1, S2. Absent: murmur - Routine Abdominal Exam Present: soft, normoactive bowel sounds, tenderness (in area of ecchymosis to left lower lateral abdomen), non distended - Routine Extremities Exam Present: edema (2+ pitting pedal, has some nonpitting edema to the hands as well.), normal capillary refill - Routine Skin Exam Present: dry, warm - Routine Neurological Exam Present: alert, oriented X3 - Routine Lymphatic Exam Lymphatic: Absent: adenopathy - Routine Psychiatric Exam Present: normal affect, cooperative Results - Labs CBC & Chem 7: 04/21/17 04:50 04/21/17 04:50 Assessment and Plan (1) HTN (hypertension) Current visit: No Status: Chronic (2) Hypothyroidism Current visit: No Status: Chronic (3) Diabetes mellitus type 2 in obese Current visit: Yes Status: Chronic (4) CKD (chronic kidney disease) stage 3, GFR 30-59 ml/min Current visit: No Status: Chronic (5) Anemia associated with acute blood loss Current visit: Yes Status: Acute (6) Abdominal hemorrhage Current visit: Yes Status: Acute (7) Hypotension due to blood loss Current visit: No Status: Acute Assessment and Plan: Assessment Acute blood loss anemia Abdominal hemorrhage-likely muscular etiology Hypotension likely secondary to blood loss anemia-resolved Recent AV ablation for atrial fibrillation Status post right pacemaker implantation Diabetes mellitus (A1c 6.9%) O2 dependent Hypothyroidism Dyslipidemia Insomnia Temporal arteritis (requiring prednisone) Chronic kidney disease stage III-with recent acute kidney injury Iron deficiency anemia Hypertension GERD Nephrolithiasis (history of stents) Fibromyalgia Depression Psoriasis Osteoarthritis Plan Hemoglobin is stable. Abdominal pain is improving. Recheck CBC tomorrow. Xarelto is still on hold. Lasix IV 40 mg once today. Then start Lasix 40 mg by mouth daily with KCl 20 mEq. Need to follow renal function. Her weight is up over 10 kg since admission to rehabilitation on 04/09/17. Continue with OT/PT. She is being screened for IRU today. Once she is able to get out of bed more readily, will DC her Wang. Blood sugars are elevated. Will add back in NovoLog 10 units with meals and continue 55 units of Levemir. (Patient was taking 60 units of NovoLog with meals prior to admission.) Patient has questions regarding her pacemaker. She may be without limitations after 3 weeks. Hospital Course Summary Disclaimer: The visit summary below is not to be considered part of the above Progress Note. Hospital Course: Assessment Acute blood loss anemia Abdominal hemorrhage-likely muscular etiology Hypotension likely secondary to blood loss anemia Recent AV ablation for atrial fibrillation Status post right pacemaker implantation Diabetes mellitus (A1c 6.9%) O2 dependent Hypothyroidism Dyslipidemia Insomnia Temporal arteritis (requiring prednisone) Chronic kidney disease stage III-with recent acute kidney injury Iron deficiency anemia Hypertension GERD Nephrolithiasis (history of stents) Fibromyalgia Depression Psoriasis Osteoarthritis 04/16/17 - CCU admission Patient admitted to CCU under the care of Dr. Rucker for acute blood loss anemia , hypotension, and abdominal hemorrhage. Will run normal saline until blood products are ready to be given. Order given to transfuse 2 units of PRBCs. Monitor pressures closely. Will add pressors if needed. Xarelto has been held. Will hold all routine medications until patient is more stable. Sliding scale insulin as needed. Hope to be able to have pt return to rehab when stable. Pt wishes to be a full code. Plan discussed with Dr. Rucker and CCU nurses. Dr. Rucker to provide further plan of care. Care to return to Dr Goodson after dismissal. (Dr. Irby has checked patient out to the hospitalist service.) As per the CT study I've evaluated personally CT reported read it appears that the bleed is localized in the subcutaneous tissue outside the thigh and abdomen. There appears to be no source bleed. Normally this would be rather minor blood volume loss but the patient is extremely corpulent and may have lost as much is 2 units into the subcutaneous tissue. She was typed and given an initial 2 units packed red blood cells. She complains pain and was initially given her by overdose tramadol. Initial blood pressures were only 70/30 but responded to bolus fluids and she has very poor vascular access and has already failed placement of the midline. We will request vascular access from surgery Afternoon update: 2 units packed red blood cells with 500 mL bolus normal saline has restored her to essentially normotensive status. As half-life of the Xarelto is 10 to 12 hours I would continue to monitor her hemoglobin Q6 hours throughout the course of the next day. Additional 2 units packed red blood cells have been placed on order. She continue to have pain exceeded the tramadol dose and so I placed her on the short course Percocet for the time. As she was vascular compromised only a few hours ago I am reluctant to add IV narcotics at this time. Pressures now 105/50 a map greater than 70. Patient will remain in the ICU overnight. If next hemoglobin is less than 8 as patient does have super morbid obesity, we will transfuse 1 to 2 more units. 04/17/17 - moved to medical unit Patient received 2 units packed red blood cells in the ICU yesterday and although her hemoglobin appears to be outside of dire straits, she has the diagnosis of super morbid obesity with a BMI greater than 70. She is still symptomatically anemic and I'm inclined to think that she will require hemoglobin greater than 10 just to be even nominally functional. Thankfully she has a pacemaker stabilizing her cardiac condition. I will transfused 3rd unit of packed red blood cells and transfer to the medical floor. I've discussed this case with Dr. Dixon and the cardiopulmonary physical therapist for IRU. They report that she has been working with physical therapy quite well the last few days prior to the bleed and if she requires a recovery time to turn to the proper frame of mind for participation that they will refrain from attempting to place her immediately back in IRU but will go through the formality of reassessing her Thursday. Patient to move to regular medical floor at this time. 04/18/17 S/P 4 units of PRBCs since admission Resume prednisone Will continue to hold OAC. Rehab to reassess Thursday. 04/19/17 Now with +OB stool, but stool is brown and she does have h/o hemorrhoids.Follow H&H Will continue to hold OAC. I doubt there is a significant GIB without melena or frankly blood stools. Associated hypotension-improved with transfusions Prednisone--?need to titrate down 04/20/17 Her hemoglobin has stabilized at 9.4 today. Was 9.1 yesterday am. Xarelto still on hold. Continue to monitor. Her BS's have mostly been >200 - increase Levemir from 50U to 55U. Her prednisone was recently resumed likely causing the elevated BS's. OK to advance diet from liquids to concentrated carb diet. VSS's reviewed and stable. PT/OT to work with patient. 04/21/17 Hemoglobin is stable. Abdominal pain is improving. Recheck CBC tomorrow. Xarelto is still on hold. Lasix IV 40 mg once today. Then start Lasix 40 mg by mouth daily with KCl 20 mEq. Need to follow renal function. Her weight is up over 10 kg since admission to rehabilitation on 04/09/17. Continue with OT/PT. She is being screened for IRU today. Once she is able to get out of bed more readily, will DC her Wang. Blood sugars are elevated. Will add back in NovoLog 10 units with meals and continue 55 units of Levemir. (Patient was taking 60 units of NovoLog with meals prior to admission.) Patient has questions regarding her pacemaker. She may be without limitations after 3 weeks <Rose Mary Lacey - Last Filed: 04/21/17 17:35> - Date 04/21/17 Objective Vital signs: Temperature 96.9 F 04/21/17 14:58 Pulse Rate 69 04/21/17 16:10 Respiratory Rate 20 04/21/17 14:54 Blood Pressure 148/68 H 04/21/17 14:54 Pulse Oximetry 91 04/21/17 14:54 Height/Weight/BMI: Height 1.5 m Weight 165.1 kg Body Mass Index 70.7 Results - Labs CBC & Chem 7: 04/21/17 04:50 04/21/17 04:50 Assessment and Plan (1) HTN (hypertension) Current visit: No Status: Chronic (2) Hypothyroidism Current visit: No Status: Chronic (3) Diabetes mellitus type 2 in obese Current visit: Yes Status: Chronic (4) CKD (chronic kidney disease) stage 3, GFR 30-59 ml/min Current visit: No Status: Chronic (5) Anemia associated with acute blood loss Current visit: Yes Status: Acute (6) Abdominal hemorrhage Current visit: Yes Status: Acute (7) Hypotension due to blood loss Current visit: No Status: Acute Assessment and Plan: 04/21/2017-I reviewed this chart, the patient history, and the PIGMENT PROCESSOR's/PA's documented findings as above. We discussed and formulated the assessment and plan as above with the additions below.-Dr. Lacey The patient was seen this evening. She states she's feeling a little bit better. Her breathing is better. Her abdominal pain where she has her hematoma is improving. She was accepted to inpatient rehabilitation, but she states she does not think she can do the therapy there and declined to go. She wants to go to detention instead. She denies any other pain today. She is eating and drinking well. She did do better exercises with physical therapy today. Blood sugars are elevated on steroids. She is on steroids for temporal arteritis. Insulin with meals has been resumed. On exam she is alert and in no acute distress. Chest is clear to auscultation. Cardiovascular reveals a regular rate and rhythm. Abdomen is soft, obese, with mild tenderness over the hematoma on her left lower pannus. Bowel sounds are normoactive. Extremities reveal +1-[address] edema[address] are in [address]. Overall, the patient is slowly improving. Bleeding in her abdominal wall hematoma appears to have resolved. Hemoglobin is stable. She remains off of anticoagulation for now. We are continuing Lasix for diuresis. She did develop fluid overload after blood transfusions and fluids when she was acutely bleeding and having hypotension. We'll give a second dose of IV Lasix this afternoon and then start oral Lasix tomorrow. Probably transfer to detention unit soon if the patient remains stable. Discussed with the patient's nurse and case management. Hospital Course Summary Disclaimer: The visit summary below is not to be considered part of the above Progress Note.
[2017-04-21] MEDS: SALINE FLUSH 10ml SYRINGE IV PRN ×3 (09:21→18:23)
[2017-04-21] MEDS ORDERED: INSULIN ASPART 100unit/ml INJECTION SQ SCH ×2 (11:30→17:18)
[2017-04-21] MEDS: TRAMADOL 50 MG TABLET PO PRN (14:49)
[2017-04-21] MEDS ORDERED: FUROSEMIDE 40 MG/4 ML INJECTION IVP ONE (17:35)
[2017-04-21] MEDS: ONDANSETRON 4 MG/2 ML INJECTION IVP PRN (17:42)
[2017-04-21] MEDS: INSULIN ASPART 100unit/ml INJECTION SQ SCH (18:10)
[2017-04-21] MEDS: INSULIN DETEMIR 100unit/ml INJECTION SQ SCH (21:04)
[2017-04-22] MEDS ORDERED: DiphenhydrAMINE 25 MG CAPSULE PO PRN (02:46)
[2017-04-22] MEDS: PANTOPRAZOLE 40 MG TABLET PO SCH ×2 (06:25→16:30)
[2017-04-22] MEDS: LEVOTHYROXINE 150 MCG TABLET PO SCH (06:25)
[2017-04-22] MEDS: FUROSEMIDE 40 MG TABLET PO SCH (08:25)
[2017-04-22] MEDS: PredniSONE 10 MG TABLET PO SCH (08:25)
[2017-04-22] MEDS: INSULIN ASPART 100unit/ml INJECTION SQ SCH ×3 (09:17→18:21)
[2017-04-22] MEDS: TRAMADOL 50 MG TABLET PO PRN (09:40)
[2017-04-22] MEDS: INSULIN ASPART 100unit/ml INJECTION SQ PRN ×3 (11:03→21:09)
[2017-04-22] MEDS: ONDANSETRON 4 MG/2 ML INJECTION IVP PRN (14:16)
[2017-04-22] MEDS: Oxycodone/Acetaminophen 5/325 1 TAB PO PRN ×2 (15:38→22:16)
[2017-04-22] MEDS ORDERED: POLYETHYL GLYCOL 3350 17gm PACKET PO PRN (15:58)
[2017-04-22] MEDS ORDERED: FUROSEMIDE 40 MG/4 ML INJECTION IVP ONE (16:09)
--- NOTE | 2017-04-22 16:15 | Progress Note ---
<Dhara Arredondo L - Last Filed: 04/22/17 16:12> - Date 04/22/17 Subjective: Patient is seen lying in her bed. She reports she is feeling nervous about her "transfer." She is under the impression she is going to SNU today, but, in fact , she is scheduled to go tomorrow. She also c/o "crackling" in her L ear. No pain. No other associated sxs. Feels her breathing is fine. Swelling has improved. Objective Vital signs: Temperature 96.5 F L 04/22/17 07:54 Pulse Rate 73 04/22/17 08:00 Respiratory Rate 18 04/22/17 07:54 Blood Pressure 132/60 04/22/17 07:54 Pulse Oximetry 93 04/22/17 07:54 Rhythm: Normal Sinus Rhythm Cardiac Ectopy: Occasional PVC's Height/Weight/BMI: Height 1.5 m Weight 162.4 kg Body Mass Index 70.7 - Constitutional Present: no acute distress, well nourished, well developed, morbidly obese - Routine HEENT Exam Head: Present: normocephalic Eye: Present: EOMI ENT: Present: mucous membranes moist, external ear normal Comments: both TM's clear - effusion on L. Scaly skin and was noted at opening of canal. Removed with Qtip. - Routine Respiratory Exam Present: CTA bilaterally, distant breath sounds. Absent: wheezes - Routine Cardiovascular Exam Present: RRR. Absent: murmur - Routine Abdominal Exam Present: soft, normoactive bowel sounds, non distended. Absent: tenderness - Routine Extremities Exam Present: edema (1+ pitting- improved from yesterday), normal capillary refill - Routine Skin Exam Present: dry, warm - Routine Neurological Exam Present: alert, oriented X3 - Routine Lymphatic Exam Lymphatic: Absent: adenopathy - Routine Psychiatric Exam Present: normal affect, cooperative Results - Labs CBC & Chem 7: 04/22/17 04:56 04/22/17 04:56 Assessment and Plan (1) HTN (hypertension) Current visit: No Status: Chronic (2) Hypothyroidism Current visit: No Status: Chronic (3) Diabetes mellitus type 2 in obese Current visit: Yes Status: Chronic (4) CKD (chronic kidney disease) stage 3, GFR 30-59 ml/min Current visit: No Status: Chronic (5) Anemia associated with acute blood loss Current visit: Yes Status: Acute (6) Abdominal hemorrhage Current visit: Yes Status: Acute (7) Hypotension due to blood loss Current visit: No Status: Acute Assessment and Plan: Assessment Acute blood loss anemia Abdominal hemorrhage-likely muscular etiology Hypotension likely secondary to blood loss anemia - resolved Recent AV ablation for atrial fibrillation Status post right pacemaker implantation Diabetes mellitus (A1c 6.9%) O2 dependent Hypothyroidism Dyslipidemia Insomnia Temporal arteritis (requiring prednisone) Chronic kidney disease stage III-with recent acute kidney injury Iron deficiency anemia Hypertension GERD Nephrolithiasis (history of stents) Fibromyalgia Depression Psoriasis Osteoarthritis Plan Offered nasal steroid for left serous otitis. Pt declines. States she can tolerate the symptoms now that she knows the cause. Has had good diuresis. Weight still up and still with swelling - will give another dose of Lasix 40mg IV now and then she can continue daily po Lasix. Hgb stable. Continue to monitor. Anticoagulation still on hold. Will decrease her prednisone to 20mg. She has done well with the decrease from 40 to 30 for her temporal arteritis. BS' are better with adjustment of insulin. Continue to monitor. Plan for discharge to SNU at [facility] tomorrow. Hospital Course Summary Disclaimer: The visit summary below is not to be considered part of the above Progress Note. Hospital Course: Assessment Acute blood loss anemia Abdominal hemorrhage-likely muscular etiology Hypotension likely secondary to blood loss anemia Recent AV ablation for atrial fibrillation Status post right pacemaker implantation Diabetes mellitus (A1c 6.9%) O2 dependent Hypothyroidism Dyslipidemia Insomnia Temporal arteritis (requiring prednisone) Chronic kidney disease stage III-with recent acute kidney injury Iron deficiency anemia Hypertension GERD Nephrolithiasis (history of stents) Fibromyalgia Depression Psoriasis Osteoarthritis 04/16/17 - CCU admission Patient admitted to CCU under the care of Dr. Rucker for acute blood loss anemia , hypotension, and abdominal hemorrhage. Will run normal saline until blood products are ready to be given. Order given to transfuse 2 units of PRBCs. Monitor pressures closely. Will add pressors if needed. Xarelto has been held. Will hold all routine medications until patient is more stable. Sliding scale insulin as needed. Hope to be able to have pt return to rehab when stable. Pt wishes to be a full code. Plan discussed with Dr. Rucker and CCU nurses. Dr. Rucker to provide further plan of care. Care to return to Dr Goodson after dismissal. (Dr. Irby has checked patient out to the hospitalist service.) As per the CT study I've evaluated personally CT reported read it appears that the bleed is localized in the subcutaneous tissue outside the thigh and abdomen. There appears to be no source bleed. Normally this would be rather minor blood volume loss but the patient is extremely corpulent and may have lost as much is 2 units into the subcutaneous tissue. She was typed and given an initial 2 units packed red blood cells. She complains pain and was initially given her by overdose tramadol. Initial blood pressures were only 70/30 but responded to bolus fluids and she has very poor vascular access and has already failed placement of the midline. We will request vascular access from surgery Afternoon update: 2 units packed red blood cells with 500 mL bolus normal saline has restored her to essentially normotensive status. As half-life of the Xarelto is 10 to 12 hours I would continue to monitor her hemoglobin Q6 hours throughout the course of the next day. Additional 2 units packed red blood cells have been placed on order. She continue to have pain exceeded the tramadol dose and so I placed her on the short course Percocet for the time. As she was vascular compromised only a few hours ago I am reluctant to add IV narcotics at this time. Pressures now 105/50 a map greater than 70. Patient will remain in the ICU overnight. If next hemoglobin is less than 8 as patient does have super morbid obesity, we will transfuse 1 to 2 more units. 04/17/17 - moved to medical unit Patient received 2 units packed red blood cells in the ICU yesterday and although her hemoglobin appears to be outside of dire straits, she has the diagnosis of super morbid obesity with a BMI greater than 70. She is still symptomatically anemic and I'm inclined to think that she will require hemoglobin greater than 10 just to be even nominally functional. Thankfully she has a pacemaker stabilizing her cardiac condition. I will transfused 3rd unit of packed red blood cells and transfer to the medical floor. I've discussed this case with Dr. Dixon and the geophysical party chief for IRU. They report that she has been working with physical therapy quite well the last few days prior to the bleed and if she requires a recovery time to turn to the proper frame of mind for participation that they will refrain from attempting to place her immediately back in IRU but will go through the formality of reassessing her Thursday. Patient to move to regular medical floor at this time. 04/18/17 S/P 4 units of PRBCs since admission Resume prednisone Will continue to hold OAC. Rehab to reassess Thursday. 04/19/17 Now with +OB stool, but stool is brown and she does have h/o hemorrhoids.Follow H&H Will continue to hold OAC. I doubt there is a significant GIB without melena or frankly blood stools. Associated hypotension-improved with transfusions Prednisone--?need to titrate down 04/20/17 Her hemoglobin has stabilized at 9.4 today. Was 9.1 yesterday am. Xarelto still on hold. Continue to monitor. Her BS's have mostly been >200 - increase Levemir from 50U to 55U. Her prednisone was recently resumed likely causing the elevated BS's. OK to advance diet from liquids to concentrated carb diet. VSS's reviewed and stable. PT/OT to work with patient. 04/21/17 Hemoglobin is stable. Abdominal pain is improving. Recheck CBC tomorrow. Xarelto is still on hold. Lasix IV 40 mg once today. Then start Lasix 40 mg by mouth daily with KCl 20 mEq. Need to follow renal function. Her weight is up over 10 kg since admission to rehabilitation on 04/09/17. Continue with OT/PT. She is being screened for IRU today. Once she is able to get out of bed more readily, will DC her Wang. Blood sugars are elevated. Will add back in NovoLog 10 units with meals and continue 55 units of Levemir. (Patient was taking 60 units of NovoLog with meals prior to admission.) Patient has questions regarding her pacemaker. She may be without limitations after 3 weeks 04/22/17 Has had good diuresis. Weight still up and still with swelling - will give another dose of Lasix 40mg IV now and then she can continue daily po Lasix. Hgb stable. Continue to monitor. Anticoagulation still on hold. Will decrease her prednisone to 20mg. She has done well with the decrease from 40 to 30 for her temporal arteritis. BS' are better with adjustment of insulin. Continue to monitor. Plan for discharge to SNU at [facility] tomorrow. <Rose Mary Lacey - Last Filed: 04/22/17 22:19> - Date 04/22/17 Objective Vital signs: Temperature 97.5 F 04/22/17 16:00 Pulse Rate 65 04/22/17 16:00 Respiratory Rate 18 04/22/17 16:00 Blood Pressure 149/63 H 04/22/17 16:00 Pulse Oximetry 92 04/22/17 16:00 Height/Weight/BMI: Height 1.5 m Weight 162.4 kg Body Mass Index 70.7 Results - Labs CBC & Chem 7: 04/22/17 04:56 04/22/17 04:56 Assessment and Plan (1) HTN (hypertension) Current visit: No Status: Chronic (2) Hypothyroidism Current visit: No Status: Chronic (3) Diabetes mellitus type 2 in obese Current visit: Yes Status: Chronic (4) CKD (chronic kidney disease) stage 3, GFR 30-59 ml/min Current visit: No Status: Chronic (5) Anemia associated with acute blood loss Current visit: Yes Status: Acute (6) Abdominal hemorrhage Current visit: Yes Status: Acute (7) Hypotension due to blood loss Current visit: No Status: Acute Assessment and Plan: 04/22/2017-I reviewed this chart, the patient history, and the DIRECTOR OF PEOPLE's/PA's documented findings as above. We discussed and formulated the assessment and plan as above with the additions below.-Dr. Lacey The patient is feeling okay today. She denies any pain. She is breathing okay. Chest is clear to auscultation. Cardiovascular reveals a regular rate and rhythm. Abdomen is soft, obese and nontender with positive bowel sounds. Extremities reveal +1 edema. Overall, the patient continues to improve. We'll likely transfer to [facility] tomorrow. She will need follow-up with her primary care physician and lab work next week. Can consider when to resume anticoagulation. Will discuss with Dr. Lopez. Patient is at high risk for DVT with her limited mobility. Hospital Course Summary Disclaimer: The visit summary below is not to be considered part of the above Progress Note.
[2017-04-22] MEDS: INSULIN DETEMIR 100unit/ml INJECTION SQ SCH (21:09)
[2017-04-22] MEDS: SALINE FLUSH 10ml SYRINGE IV PRN (22:27)
[2017-04-23 00:14] VITALS: O2SAT 96
[2017-04-23] MEDS: TRAMADOL 50 MG TABLET PO PRN ×2 (03:55→14:07)
[2017-04-23] MEDS: PANTOPRAZOLE 40 MG TABLET PO SCH (06:22)
[2017-04-23] MEDS: LEVOTHYROXINE 150 MCG TABLET PO SCH (06:22)
[2017-04-23 07:30] VITALS: BP 144/71; RESP 20; TEMP 96.6
[2017-04-23] MEDS ORDERED: PredniSONE 20 MG TABLET PO SCH (08:00)
[2017-04-23] MEDS: INSULIN ASPART 100unit/ml INJECTION SQ SCH ×2 (08:18→13:01)
[2017-04-23] MEDS: FUROSEMIDE 40 MG TABLET PO SCH (08:21)
[2017-04-23] MEDS: Oxycodone/Acetaminophen 5/325 1 TAB PO PRN (08:23)
[2017-04-23] MEDS: ONDANSETRON 4 MG/2 ML INJECTION IVP PRN (09:53)
--- NOTE | 2017-04-23 09:54 | Extended Care Facility Orders ---
<Dhara Arredondo - Last Filed: 04/23/17 11:47> Admission Orders Admit to:: Half-Way Allergies/Adverse Reactions: Allergies aspirin Allergy (Severe, Verified 04/09/17 23:13) Anaphylactic Shock levofloxacin [From Levaquin] Allergy (Severe, Verified 04/09/17 23:13) Anaphylactic Shock Penicillins Allergy (Severe, Verified 04/09/17 23:13) Anaphylactic Shock Sulfa (Sulfonamide Antibiotics) Allergy (Severe, Verified 04/09/17 23:13) Anaphylactic Shock Latex, Natural Rubber Allergy (Intermediate, Verified 04/09/17 23:13) Rash Ahquodd-Kxb-Yif Reductase Inhibitor Allergy (Intermediate, Verified 04/09/17 23: 13) muscle weakness codeine Allergy (Mild, Verified 04/09/17 23:13) Nausea and Vomiting Iodine and Iodide Containing Produc Allergy (Mild, Verified 04/09/17 23:13) Rash niacin Allergy (Verified 04/09/17 19:41) Flushing butorphanol [From Stadol] Adverse Reaction (Severe, Verified 04/09/17 23:13) aggressive behavior morphine Adverse Reaction (Verified 03/11/17 07:06) Nausea and Vomiting Admitting Diagnosis: hypotension Admitting Physician: Rose Mary Lacey MD Attending Physician: Rose Mary Lacey MD Code Status: Full Code Anticiapted Length of Stay: 30 days or less Rehab Potential: fair Rehab Prognosis: fair Diet: 04/20/17 Lunch Consistent Carbohydrate Diet [DIET] Calorie Level: 2000 Wound/Incision Care: keep pacemaker incision clean and dry May use Facility Protocol or Standing Orders: Yes May have flu vaccine: Yes Evaluations/Treatment: PT, OT, Psychiatric Half-Way Certification: I certify that SNF services are required to be given on an Inpatient basis because of the patients need for senior living care on a continuing basis for the condition(s) for which he/she received inpatient hospital services prior to his/her transfer to the SNF. SNF inpatient care is necessary for the following reasons Indication for Half-Way: Med Admininistration, Other (PT/OT) - Additional Information In Event of Arrest: Start CPR,call 911,send patient to the ER Resident is Aware of Diagnosis: Yes Laboratory/Radiology: CBC & BMP in 1 week Referrals: Siddharth Chavez MD [Physician] - 2 Weeks Nikolas Gann MD [Family Provider] - 1 Week () Additional Orders: Encourage patient to move as much as possible. She is at high risk for blood clot formation if she is sedentary. Cannot take blood thinner due to recent hemorrhage. <Rose Mary Lacey - Last Filed: 04/23/17 13:14> Admission Orders Admitting Diagnosis: abd hemorrhage, anemia assoc with ABL Admitting Physician: Rose Mary Lacey MD Attending Physician: Rose Mary Lacey MD Code Status: Full Code Diet: 04/20/17 Lunch Consistent Carbohydrate Diet [DIET] Calorie Level: 2000 Half-Way Certification: I certify that SNF services are required to be given on an Inpatient basis because of the patients need for senior living care on a continuing basis for the condition(s) for which he/she received inpatient hospital services prior to his/her transfer to the SNF. SNF inpatient care is necessary for the following reasons
--- NOTE | 2017-04-23 10:10 | Discharge Summary ---
<Dhara Arredondo - Last Filed: 04/23/17 13:37> Discharge Information Date of admission: 04/16/17 09:14 Anticipated date of discharge: 04/23/17 Attending Physician: Rose Mary Lacey MD Primary care physician: Nikolas Gann MD - Discharge Diagnosis (1) HTN (hypertension) Status: Chronic (2) Hypothyroidism Status: Chronic (3) Diabetes mellitus type 2 in obese Status: Chronic (4) CKD (chronic kidney disease) stage 3, GFR 30-59 ml/min Status: Chronic (5) Anemia associated with acute blood loss Status: Resolved (6) Abdominal hemorrhage Status: Resolved (7) Hypotension due to blood loss Status: Resolved Acute blood loss anemia- improved Recent abdominal hemorrhage-likely muscular etiology Hypotension likely secondary to blood loss anemia - resolved Recent AV ablation for atrial fibrillation - pacemaker dependent Status post right pacemaker implantation Diabetes mellitus (A1c 6.9%) O2 dependent Hypothyroidism Dyslipidemia Insomnia Temporal arteritis (requiring prednisone) Chronic kidney disease stage III-with recent acute kidney injury Iron deficiency anemia Hypertension GERD Nephrolithiasis (history of stents) Fibromyalgia Depression Psoriasis Osteoarthritis - Procedures Procedures: 04/16/2017 SURGEON Benigno Snider MD PREOPERATIVE DIAGNOSIS Inadequate peripheral IV access, large hematoma involving lateral abdominal wall. POSTOPERATIVE DIAGNOSIS Inadequate peripheral IV access, large hematoma involving lateral abdominal wall. PROCEDURE Insertion of triple-lumen catheter under sonographic guidance. DESCRIPTION OF PROCEDURE After informed consent was obtained, right lateral neck was prepped and draped in sterile fashion. Ultrasonography was then performed and one could see the anatomic location of the internal jugular vein. 1% lidocaine was then injected overlying the internal jugular vein. Next under sonographic guidance, a Cook needle was directly advanced into the internal jugular vein with aspiration. A venous flush was obtained. Guidewire was advanced through the Cook needle and the Cook needle was removed. A 4-5 mm incision was then made adjacent to the guidewire. Next a dilator was then advanced over the guidewire and removed. Next a flush triple-lumen catheter was advanced over the guidewire and the guidewire was removed. Catheter was then secured to the right lateral neck with 2-0 silk. Each line was aspirated and flushed with hep saline. The patient tolerated the procedure without difficulty. Post procedure chest x-ray revealed correct placement of the catheter without evidence for pneumothorax. - Laboratory Labs: 04/22/17 04:56 11/08/17 04:56 - Radiology Radiology: Date of Exam: 04/16/17 Ordering Provider: Benigno Snider MD Type of Exam(s): XR chest 1V Reason for Exam(s): post IG insertion Indication: post IJ insertion PROCEDURE: XR chest 1V: Encounter: Initial Comparison: February 15, 2017 Findings: New right internal jugular approach central venous catheter. The tip is difficult to visualize but appears to project over the mid SVC. No visible pneumothorax. Mild left basilar atelectasis. No obvious pleural effusion. Cardiac silhouette remains enlarged. Mediastinal contours are stable. Left cardiac pacemaker. Overlying cardiac monitoring leads. Impression: New right IJ line tip appears to project over the mid SVC without evidence of pneumothorax. History of Present Illness HPI: Patient is a 71-year-old female who was in our inpatient rehabilitation unit recovering from a prolonged hospital stay following cardiac ablation for atrial fibrillation. This morning the nurses noted that her systolic pressure was in the 60s. Patient states she's had pain in the left abdomen and back for the last several days and it became significantly worse at approximately 4-5 this morning. She was given a Zanaflex around 4 AM and Tabor at 6 AM. Following this , the nurse noted that she was more pale and patient reports she was seeing "blue castro" on the zaragoza. Patient has never had these symptoms with her muscle relaxer and pain pills in the past. The nurses also had noted some bruising in the left abdominal area which was not there several days ago. Once notified of the low pressures, the patient was evaluated and found to be pale and diaphoretic. She was lucid and able to answer questions, but was in quite a bit of pain. In lieu of the bruising to the left lower abdomen and pain in this area, stat CT chest/abdomen/pelvis was ordered and revealed blood collection superficially in the area of her pain. Nurse reports patient had felt like she had pulled a muscle in her upper left hip/lower back a few days ago, and has been having pain with lifting the left leg up into the bed; thus, it is possible that she could have internal bleeding from an injury muscular in nature, anant given that she is on Xarelto. She was noted to have a drop in her hemoglobin from 9.3 on 04/14/17 to 7.8 this morning. Her BUN, which was averaging 20s to 30s, increased to 60 on 04/13/17 and was 54 this morning. Given her clinical deterioration of significantly low pressures and acute bleeding on anticoagulation, she was transferred to the CCU for higher level of care. The following information regarding patient's recent history is per Dr. Dixon 's rehabilitation admission note from 04/09/17: She has about a one-year history of atrial fibrillation. The patient did undergo direct current cardioversion on 01/01/2017. This helped for about 3 weeks and then she reverted back to atrial fibrillation. Sotalol initially was tried and was somewhat successful and then she was changed to diltiazem. Ejection fraction is noted to be 57%. The patient underwent electrophysiologic study and radiofrequency ablation on in [place]. According to the patient this changed her from atrial fibrillation to atrial flutter. She underwent a second ablation procedure of the AV node on 04/02/[address] Tan in [place]. She is followed locally by Dr. Chavez. The second AV ablation was successful and a permanent pacemaker was placed at the same time. Unfortunately the right ventricular lead became dislodged and she apparently did have a short episode of asystole lasting 7 seconds according to the patient. She was moved to the intensive care unit in the right ventricular lead was repositioned. She remains in a sling in the left arm and is not to lift anything over 10 pounds for at least one week. She did have symptoms with the atrial fibrillation characterized by a sensation of rapid heartbeat as well as lightheadedness prior to the AV ablation. She has other medical issues including diabetes mellitus. Formerly she did check her blood sugars once or twice daily and her most recent A1c is reportedly 6.9%. Recently she has not been checking her blood sugars as frequently. Of pertinence, she does have a diagnosis of temporal arteritis and is on prednisone 40 mg daily. She has had this for some time and has been on this dose for at least the past 3-4 months. She does have chronic kidney disease stage III. While in [place] she did have evidence of acute kidney injury in addition. Renal sonogram failed to reveal any evidence of hydronephrosis. She also had hyperkalemia and did require Kayexalate. Finally, the patient does have anemia. Serum iron was 5%. She was given iron supplementation in [place]. Hemoglobin continues to require monitoring carefully. Objective Vital signs: Temperature 96.6 F L 04/23/17 07:29 Pulse Rate 71 04/23/17 07:29 Respiratory Rate 20 04/23/17 07:29 Blood Pressure 144/71 H 04/23/17 07:29 Pulse Oximetry 96 04/23/17 07:29 Rhythm: Normal Sinus Rhythm Cardiac Ectopy: Occasional PVC's Height/Weight/BMI: Height 1.5 m Weight 158 kg Body Mass Index 70.7 - Constitutional Present: no acute distress, well nourished, well developed, morbidly obese - Routine HEENT Exam Head: Present: normocephalic, atraumatic Eye: Present: EOMI - Routine Respiratory Exam Present: CTA bilaterally. Absent: wheezes - Routine Cardiovascular Exam Present: RRR, S1, S2. Absent: murmur - Routine Abdominal Exam Present: soft, normoactive bowel sounds, non distended. Absent: tenderness - Routine Extremities Exam Present: edema (pedal 1+ R, tr L), no edema (to the hands), normal capillary refill - Routine Skin Exam Present: dry, warm - Routine Neurological Exam Present: alert, oriented X3, CN II-XII intact - Routine Lymphatic Exam Lymphatic: Absent: adenopathy - Routine Psychiatric Exam Present: normal affect, cooperative Hospital Course This is a general summary of the patient's hospital course. For more details refer to the complete medical record. Hospital course: 04/16/17 - CCU admission Patient admitted to CCU under the care of Dr. Rucker for acute blood loss anemia , hypotension, and abdominal hemorrhage. Will run normal saline until blood products are ready to be given. Order given to transfuse 2 units of PRBCs. Monitor pressures closely. Will add pressors if needed. Xarelto has been held. Will hold all routine medications until patient is more stable. Sliding scale insulin as needed. Hope to be able to have pt return to rehab when stable. Pt wishes to be a full code. Plan discussed with Dr. Rucker and CCU nurses. Dr. Rucker to provide further plan of care. Care to return to Dr Goodson after dismissal. (Dr. Irby has checked patient out to the hospitalist service.) As per the CT study I've evaluated personally CT reported read it appears that the bleed is localized in the subcutaneous tissue outside the thigh and abdomen. There appears to be no source bleed. Normally this would be rather minor blood volume loss but the patient is extremely corpulent and may have lost as much is 2 units into the subcutaneous tissue. She was typed and given an initial 2 units packed red blood cells. She complains pain and was initially given her by overdose tramadol. Initial blood pressures were only 70/30 but responded to bolus fluids and she has very poor vascular access and has already failed placement of the midline. We will request vascular access from surgery Afternoon update: 2 units packed red blood cells with 500 mL bolus normal saline has restored her to essentially normotensive status. As half-life of the Xarelto is 10 to 12 hours I would continue to monitor her hemoglobin Q6 hours throughout the course of the next day. Additional 2 units packed red blood cells have been placed on order. She continue to have pain exceeded the tramadol dose and so I placed her on the short course Percocet for the time. As she was vascular compromised only a few hours ago I am reluctant to add IV narcotics at this time. Pressures now 105/50 a map greater than 70. Patient will remain in the ICU overnight. If next hemoglobin is less than 8 as patient does have super morbid obesity, we will transfuse 1 to 2 more units. 04/17/17 - moved to medical unit Patient received 2 units packed red blood cells in the ICU yesterday and although her hemoglobin appears to be outside of dire straits, she has the diagnosis of super morbid obesity with a BMI greater than 70. She is still symptomatically anemic and I'm inclined to think that she will require hemoglobin greater than 10 just to be even nominally functional. Thankfully she has a pacemaker stabilizing her cardiac condition. I will transfused 3rd unit of packed red blood cells and transfer to the medical floor. I've discussed this case with Dr. Dixon and the physical chemistry professor for IRU. They report that she has been working with physical therapy quite well the last few days prior to the bleed and if she requires a recovery time to turn to the proper frame of mind for participation that they will refrain from attempting to place her immediately back in IRU but will go through the formality of reassessing her Thursday. Patient to move to regular medical floor at this time. 04/18/17 S/P 4 units of PRBCs since admission Resume prednisone Will continue to hold OAC. Rehab to reassess Thursday. 04/19/17 Now with +OB stool, but stool is brown and she does have h/o hemorrhoids.Follow H&H Will continue to hold OAC. I doubt there is a significant GIB without melena or frankly blood stools. Associated hypotension-improved with transfusions Prednisone--?need to titrate down 04/20/17 Her hemoglobin has stabilized at 9.4 today. Was 9.1 yesterday am. Xarelto still on hold. Continue to monitor. Her BS's have mostly been >200 - increase Levemir from 50U to 55U. Her prednisone was recently resumed likely causing the elevated BS's. OK to advance diet from liquids to concentrated carb diet. VSS's reviewed and stable. PT/OT to work with patient. 04/21/17 Hemoglobin is stable. Abdominal pain is improving. Recheck CBC tomorrow. Xarelto is still on hold. Lasix IV 40 mg once today. Then start Lasix 40 mg by mouth daily with KCl 20 mEq. Need to follow renal function. Her weight is up over 10 kg since admission to rehabilitation on 04/09/17. Continue with OT/PT. She is being screened for IRU today. Once she is able to get out of bed more readily, will DC her Wang. Blood sugars are elevated. Will add back in NovoLog 10 units with meals and continue 55 units of Levemir. (Patient was taking 60 units of NovoLog with meals prior to admission.) Patient has questions regarding her pacemaker. She may be without limitations after 3 weeks 04/22/17 Has had good diuresis. Weight still up and still with swelling - will give another dose of Lasix 40mg IV now and then she can continue daily po Lasix. Hgb stable. Continue to monitor. Anticoagulation still on hold. Will decrease her prednisone to 20mg. She has done well with the decrease from 40 to 30 for her temporal arteritis. BS' are better with adjustment of insulin. Continue to monitor. Plan for discharge to SNU at [facility] tomorrow. 04/23/17 Overall, patient is doing well. She is stable and ready to be discharged to [facility] for alf. Wang and IJ were removed prior to discharge. She will follow up with her PCP, Dr. Goodson in 1 week. CBC and BMP for April 27. Fax results to Dr. Goodson's office. She is to follow-up with Dr. Chavez in [address] Chavez has recommended that she stay off of the Xarelto at this time given the recent hemorrhage. She is high risk for DVT. Have recommended to nursing staff at the correction to encourage activity. Time spent with patient: greater than 35 minutes DVT Prophylaxis: SCD's Discharge Plan - Discharge Disposition Discharge Date: 04/23/17 Disposition: 03 To SNU Not [facility] (SNF) *Condition: Stable Reason For Visit (Visit label in EMR): abd hemorrhage, anemia assoc with ABL *Discharge Diagnosis (Not required if DC Summary completed): Acute blood loss anemia. Abdominal hemorrhage-likely muscular etiology. Hypotension likely secondary to blood loss anemia - resolved. Recent AV ablation for atrial fibrillation. Status post right pacemaker implantation. Diabetes mellitus ( A1c 6.9%). O2 dependent. Hypothyroidism. Dyslipidemia. Insomnia. Temporal arteritis (requiring prednisone). Chronic kidney disease stage III-with recent acute kidney injury. Iron deficiency anemia. Hypertension. GERD. Nephrolithiasis (history of stents). Fibromyalgia. Depression. Psoriasis. Osteoarthritis - Discharge Medications *Discharge Medications: New Insulin Aspart [NovoLOG] 15 unit SQ WM vial Insulin Detemir [Levemir] 55 unit SQ HS vial Nystatin Powder [Mycostatin] 1 applic TP BID bottle PredniSONE [Deltasone] 20 mg PO WB tablet DiphenhydrAMINE [Benadryl] 50 mg PO HS PRN capsule PRN Reason: Itching Furosemide [Lasix] 40 mg PO DAILY tablet Potassium Chloride [K-Dur] 20 meq PO WB tablet Continue Pantoprazole Sodium [Protonix] 40 mg PO ACB #0 Magnesium Oxide [Magnesium] 400 mg PO DAILY Cholecalciferol (Vitamin D3) [Vitamin D3] 1,000 unit PO DAILY Sucralfate [Carafate] 1 gm PO BID Tizanidine HCl 4 mg PO BID PRN PRN Reason: Prn Orders Ferrous Sulfate 325 mg PO DAILY PEG 3350 17gm PACKET [Miralax] 17 gm PO DAILY packet Hydrocodone/APAP 5/325 [Tabor 5/325] 1 tab PO Q4H PRN #30 tab PRN Reason: Pain Nitroglycerin [Nitrostat] 0.4 mg SL Q5MIN3 PRN #25 tablet PRN Reason: Chest Pain Multivit,Calc,Mins/Iron/Folic [Women's Daily Caplet] 1 tab PO DAILY Gemfibrozil [Lopid] 600 mg PO ACBID Tramadol [Ultram] 50 mg PO Q6HR PRN PRN Reason: Pain diltiazem CD 240 mg capsule,extended release 24 hr 240 mg PO BID 30 Days #60 levothyroxine 150 mcg tablet 150 mcg PO ACB #90 tab Discontinued DiphenhydrAMINE [Benadryl] 25 mg PO Q8HR Docusate Sodium [Colace] 1 cap PO BID Sennosides 8.6 mg PO BID Rivaroxaban [Xarelto] 20 mg PO WS Insulin Aspart [NovoLOG] 33 unit SQ TIDWM vial Insulin Detemir [Levemir] 50 unit SQ HS vial Lisinopril [Prinivil] 10 mg PO DAILY tablet PredniSONE [Deltasone] 30 mg PO WB tablet Saliva Substitute Mouthwash [Biotene Dry Mouth Oral Rinse] 15 ml MM 5XD bottle - Discharge Packet/Instructions *Diet: low fat, controlled carb 2000cal *Activity: as tolerated - up with assist *Pain Management/Treatment: n/a *Wound Care: keep pacemaker incision clean and dry Additional Instructions: No further limitation with L arm 3 weeks after placement of pacemaker *Expected Signs/Symptoms: increasing strength *Notify Physician if: you develop chest pain or SOA *During Business Hours Contact: talk to nurse at [facility] *After Business Hours Contact: talk to nurse at correction *Pending Lab/Results: No Pending Lab - Referrals/Follow Up *Referrals/Follow Up: Nikolas Gann MD [Family Provider] - 1 Week () Siddharth Chavez MD [Physician] - 2 Weeks - Patient Handouts Patient Handouts: [facility] Pacemaker, Pacemaker (DC), Hypotension (DC) - Dismissal Complete Discharge Instructions are:: Complete <Rose Mary Lacey - Last Filed: 04/23/17 14:29> Discharge Information Date of admission: 04/16/17 09:14 Attending Physician: Rose Mary Lacey MD Primary care physician: Nikolas Gann MD Consults: 04/20/17 IRU Screening [Inpatient Rehab Screening] [CONS] Routine 04/21/17 10:41 Doctor [Physician Consult] [CONS] Routine Consulting Provider: Fady Swain Reason For Exam: review for skilled Ordering Provider has Notified Barrel Coater: Yes 04/21/17 10:49 Doctor [Physician Consult] [CONS] Routine Consulting Provider: [facility] Reason For Exam: review for skilled Ordering Provider has Notified Barrel Coater: Yes 04/21/17 10:51 Doctor [Physician Consult] [CONS] Routine Consulting Provider: Kathy Lundberg Reason For Exam: review for skilled Ordering Provider has Notified Barrel Coater: Yes 04/21/17 10:54 Doctor [Physician Consult] [CONS] Routine Consulting Provider: Eliana Carey Reason For Exam: review for skilled Ordering Provider has Notified Barrel Coater: Yes - Discharge Diagnosis (1) HTN (hypertension) Status: Chronic (2) Hypothyroidism Status: Chronic (3) Diabetes mellitus type 2 in obese Status: Chronic (4) CKD (chronic kidney disease) stage 3, GFR 30-59 ml/min Status: Chronic (5) Anemia associated with acute blood loss Status: Resolved (6) Abdominal hemorrhage Status: Resolved (7) Hypotension due to blood loss Status: Resolved (8) Hypoxia Status: Acute - Laboratory Labs: 04/22/17 04:56 04/22/17 04:56 Objective Vital signs: Temperature 96.6 F L 04/23/17 07:29 Pulse Rate 70 04/23/17 08:02 Respiratory Rate 20 04/23/17 07:29 Blood Pressure 144/71 H 04/23/17 07:29 Pulse Oximetry 96 04/23/17 07:29 Height/Weight/BMI: Height 1.5 m Weight 158 kg Body Mass Index 70.7 Hospital Course This is a general summary of the patient's hospital course. For more details refer to the complete medical record. Hospital course: 04/23/2017-I reviewed this chart, the patient history, and the CONTRACT MODELER's/PA's documented findings as above. We discussed and formulated the assessment and plan as above with the additions below.-Dr. Lacey Patient states she's feeling well today. Her edema in her hands, arms, legs and feet is improved. She states it's about back to baseline. She is breathing better. She is on 2 L of oxygen. She is eating and drinking well. Her abdominal wall pain where she suffered a large left lower abdominal hematoma is improving. Hemoglobin has been stable. Vital signs have been stable. We have been diuresing her with IV Lasix for peripheral edema. This is markedly improved. On exam she is alert and in no acute distress. Chest is clear to auscultation. Cardiovascular reveals a regular rate and rhythm. Abdomen is soft, obese, nontender with positive bowel sounds. Extremities reveal +1 pedal edema. Overall edema has markedly improved. Today, the patient appears stable for dismissal to alf. She declined to go back to inpatient rehabilitation because she didn't think she could do 3 hours of therapy. We will discontinue Wang catheter and right IJ line prior to discharge. I did talk with Dr. Goodson about the hospital course and discharge plans, especially regarding her abdominal wall hematoma and discontinuation of anticoagulation. She will have lab work next week. He can then decide when and if she needs low-dose anticoagulation for DVT prophylaxis. We'll dismiss to the correction in stable condition today.
[2017-04-23 11:01] VITALS: PULSE 70
[2017-04-23] MEDS: INSULIN ASPART 100unit/ml INJECTION SQ PRN (13:02)
[2017-04-23] MEDS ORDERED: NEOMYCIN/POLYMYXIN/BACITRACIN OINT PACKET TP ONE (13:33)
[2017-04-23] MEDS ORDERED: POLYETHYL GLYCOL 3350 17gm PACKET PO PRN (13:45)
== END 2017-04-23 15:27 | DRG 812 ==
LOC: SUATTDRO 09:14 → CCU 09:14 → MED 04-17 17:30
PROVIDERS: ADMIT Family Medicine; ATTEND Internal Medicine

== ENCOUNTER 2017-06-19 07:29 | Inpatient (IN) ==
[2017-06-19] MEDS ORDERED: NS 1,000 ML IV ONE (07:37)
[2017-06-19] MEDS ORDERED: NITROGLYCERIN 0.4 MG SUBLINGUAL TABLET SL PRN ×2 (07:39→14:00)
[2017-06-19] MEDS ORDERED: CEFEPIME 1 GM in NS 100 ML IV ONE (07:42)
--- OUTSIDE RECORDS SUMMARY | 2017-06-19 07:43 | External Medical Summary | Continuity of Care Document ---
:1945 Author Organization [facility]. Allergies Active Description Code Type Severity Reaction Onset Reported/ Identified Relationship Clinical to Patient Status Yes aspirin aspir Drug Severe anaphalac 03/18/2017 in Aller tic gy Yes codeine codei Drug Severe nausea 03/18/2017 phosphate ne Aller hard to phosp gy breathe hate Yes Iodine and Iodin Drug Severe severe 03/18/2017 Iodide e and Aller rash Containing Iodid gy Produc e Conta ining Produ c Yes levofloxine levof Drug Severe quit 03/18/2017 loxin Aller breathing e gy Yes Penicillins Penic Drug Severe anaphalac 03/18/2017 illin Aller tic s gy Yes Sulfa Sulfa Drug Severe anaphalac 03/18/2017 (Sulfonamide (Sulf Aller tic Antibiotics) onami gy de Antib iotic s) Yes butorphanol butor Drug Unknown unknown 03/18/2017 titrate phano Aller l gy titra te Yes latex latex Drug Unknown skin 04/02/2017 Aller sensitivi gy ty Medications There is no data. 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 04/03/2017 Chen LOUIE, F E66.9 OBESITY, Ghiyath UNSPECIFIED 04/03/2017 Chen LOUIE, F E87.5 HYPERKALEMIA Ghiyath 04/03/2017 Chen LOUIE, F G47.33 OBSTRUCTIVE SLEEP Ghiyath APNEA (ADULT) (PEDIATRIC) 04/03/2017 Chen LOUIE, F G89.29 OTHER CHRONIC PAIN Ghiyath 04/03/2017 Chen LOUIE, F I12.9 HYPERTENSIVE Ghiyath CHRONIC KIDNEY DISEASE W STG 1-4/UNSP 04/03/2017 Chen LOUIE, F I48.1 PERSISTENT ATRIAL Ghiyath FIBRILLATION 04/03/2017 Chen LOUIE, F I48.92 UNSPECIFIED ATRIAL Ghiyath FLUTTER 04/03/2017 Chen LOUIE, F K21.9 GASTRO-ESOPHAGEAL Ghiyath REFLUX DISEASE WITHOUT ESOPHAGIT 04/03/2017 Chen LOUIE, F K59.00 CONSTIPATION, Ghiyath UNSPECIFIED 04/03/2017 Chen LOUIE, F N17.9 ACUTE KIDNEY Ghiyath FAILURE, UNSPECIFIED 04/03/2017 Chen LOUIE, F N18.3 CHRONIC KIDNEY Ghiyath DISEASE, STAGE 3 (MODERATE) 04/03/2017 Chen LOUIE, F N30.00 ACUTE CYSTITIS Ghiyath WITHOUT HEMATURIA 04/03/2017 Chen LOUIE, F T82.110A BREAKDOWN Ghiyath (MECHANICAL) OF CARDIAC ELECTRODE, INIT 04/03/2017 Chen LOUIE, F Y83.1 IMPLNT OF ARTIF INT Ghiyath DEV CAUSE ABN REACT/COMPL, W/O 04/03/2017 Chen LOUIE, F Z68.44 BODY MASS INDEX Ghiyath (BMI) 60.0-69.9, ADULT 04/03/2017 Chen LOUIE, F 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 04/03/2017 Chen LOUIE, F Z86.19 PERSONAL HISTORY OF Ghiyath OTHER INFECTIOUS AND PARASITIC 04/03/2017 Chen LOUIE, F Z88.0 ALLERGY STATUS TO Ghiyath PENICILLIN 04/03/2017 Chen LOUIE, F Z88.1 ALLERGY STATUS TO Ghiyath OTHER ANTIBIOTIC AGENTS STATUS 04/03/2017 Chen LOUIE, F Z88.2 ALLERGY STATUS TO Ghiyath SULFONAMIDES STATUS 04/03/2017 Chen LOUIE, F Z88.6 ALLERGY STATUS TO Ghiyath ANALGESIC AGENT STATUS 04/03/2017 Chen LOUIE, F Z88.8 ALLERGY STATUS TO [facility] DRUG/MEDS/BIOL SUBST STATUS 04/03/2017 Chen LOUIE, F Z91.040 LATEX [facility] 04/03/2017 Chen LOUIE, F Z91.041 RADIOGRAPHIC DYE [facility] ALLERGY STATUS Procedures Code Description [place] [id number] PT EVALUATION MANAS LOUIE, 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 04/23/2015 DESTRUCTION Chen LOUIE, [facility] 04/03/2017 [id number] OF CONDUCTION MECHANISM, PERCUTANEOUS INSERTION OF Chen LOUIE, [facility] 04/03/2017 [id number] PACEMAKER LEAD INTO RIGHT ATRIUM, OPE INSERTION OF Chen LOUIE [facility] 04/03/2017 [id number] PACEMAKER LEAD INTO R VENTRICLE, OPEN INSERTION OF Chen LOUIE [facility] 04/03/2017 [id number] PACEMAKER LEAD INTO L VENTRICLE, OPEN MAP Chen LOUIE [facility] 04/03/2017 [id number] CONDUCTION MECHANISM, PERCUTANEOUS APPROACH REVISION OF Cehn LOUIE [facility] 04/03/2017 [id number] CARDIAC LEAD IN HEART, PERCUTANEOUS AP INSERT CARD Chen LUOIE [facility] 04/03/2017 [id number] RSYNC PACE PULS GEN IN CHEST SUBCU/FAS <section xmlns="urn:hl7-org:v3" xmlns:xsi="http://www.w3.org/ 2001/XMLSchema-instance"> <templateId root=" [id number]" /> <templateId root=" [id number]" /> <code codeSystemName=" LOINC" codeSystem="[id number]" code="95252-3&quot ; displayName="Results" /> <title>Results</title> &lt ;text> <table> <thead> <tr> <th& gt;Test</th> <th>Result</th> <th>Range </th> </tr> </thead> <tbody> &lt ;tr> <th colspan="10">B-TYPE NATRIURETIC PEPTIDE - 03/18/17 12:30</th> </tr> <tr> <td& gt;B-TYPE NATRIURETIC PEPTIDE</td> <td>22 pg/mL</td> <td>< 100</td> </tr> <tr&gt ; <th colspan="10">CBC - 03/18/17 12:30</th> < /tr> <tr> <td>MEAN CELL HGB</td> & lt;td>28.2 pg</td> <td>27.0-33.0</td> </ tr> <tr> <td>MEAN CELL HGB CONCENTRATION</td& gt; <td>31.4 g/dL</td> <td>32.0-37.0</td& gt; </tr> <tr> <td>MEAN CELL VOLUME</td > <td>89.7 fl</td> <td>80.0-100.0</td& gt; </tr> <tr> <td>RED BLOOD CELL</td&gt ; <td>3.80 m/cumm</td> <td>4.00-6.00</td& gt; </tr> <tr> <td>RED CELL DISTRIBUTION WIDTH</td> <td>16.1 %</td> <td>11.0-15.6</td> </tr> <tr> <td>WHITE BLOOD CELL</td> <td>15.3 k/cumm</td&gt ; <td>5.0-10.0</td> </tr> <tr> <td>HEMOGLOBIN</td> <td>10.7 gm/dL</td> <td>12.0-16.0</td> </tr> <tr> <td>HEMATOCRIT</td> <td>34.1 %</td&gt ; <td>37.0-47.0</td> </tr> <tr> <td>PLATELET COUNT</td> <td>340 k/cumm</ td> <td>150-450</td> </tr> <tr&gt ; <th colspan="10">PROTHROMBIN TIME WITH INR - 12:30</th> </tr> <tr> <td> INTERNATIONAL NORMAL RATIO</td> <td>1.1 </td> <td>0.9-1.1</td> </tr> <tr> & lt;td>PROTHROMBIN TIME</td> <td>12.9 sec</td> <td>10.0-12.8</td> </tr> <tr> <th colspan="10">PARTIAL THROMBOPLASTIN TIME - 03/18/17 12:30 </th> </tr> <tr> <td>PARTIAL THROMBOPLASTIN TIME</td> <td>28 sec</td> &lt ;td>25-37</td> </tr> <tr> <th colspan="10">METABOLIC PANEL, COMPREHN - 03/18/17 12:30</th> </tr> <tr> <td>POTASSIUM</td> <td>4.6 mmol/L</td> <td>3.5-5.3</td> </tr> <tr> <td>EST GFR (MDRD)</td&gt ; <td>40 mL/min</td> <td>> 59</td& gt; </tr> <tr> <td>ANION GAP</td&gt ; <td>10 mmol/L</td> <td>5-15</td> </tr> <tr> <td>GLUCOSE</td> <td>175 mg/dL</td> <td>70-99</td> </ tr> <tr> <td>CALCIUM</td> <td& gt;9.2 mg/dL</td> <td>8.5-10.1</td> </tr&gt ; <tr> <td>BLOOD UREA NITROGEN</td> & lt;td>35 mg/dL</td> <td>7-20</td> </tr& gt; <tr> <td>CREATININE</td> <td> 1.3 mg/dL</td> <td>0.6-1.0</td> </tr> <tr> <td>SODIUM</td> <td>138 mmol/L</td> <td>135-148</td> </tr> <tr> <td>CHLORIDE</td> <td>101 mmol /L</td> <td>98-110</td> </tr> &lt ;tr> <td>AST/SGOT</td> <td>14 Units/L</td&gt ; <td>10-37</td> </tr> <tr> <td>ALT/SGPT</td> <td>29 Units/L</td> <td>< 66</td> </tr> <tr> <td>CARBON DIOXIDE</td> <td>27 mmol/L</td&gt ; <td>21-32</td> </tr> <tr> <td>TOTAL PROTEIN</td> <td>7.5 gm/dL</td> <td>6.4-8.2</td> </tr> <tr> <td>ALBUMIN</td> <td>3.4 gm/dL</td> <td>3.4-5.0</td></tr> <tr> <td& gt;BILI TOTAL</td> <td>0.3 mg/dL</td> <td >0.0-1.0</td> </tr> <tr> <td> ALKALINE PHOSPHATASE TOTAL</td> <td>46 IU/L</td> <td>45-117</td> </tr> <tr> <th colspan="10">MAGNESIUM - 03/18/17 12:30</th> & lt;/tr> <tr> <td>MAGNESIUM</td> & lt;td>2.0 mg/dL</td> <td>1.8-2.4</td> </ tr> <tr> <th colspan="10">THYROID STIM HORMONE (TSH) - 03/18/1712:30</th> </tr> <tr> <td>THYROID STIM HORMONE (TSH)</td> <td>0.42 uIU/mL</td> <td>0.34-4.82</td> </tr> <tr> <th colspan="10">GLUCOSE (POC) - 18:06</th> </tr> <tr> <td> GLUCOSE (POC)</td><td>246 mg/dL</td> <td>70-99& lt;/td> </tr> <tr> <th colspan="10 ">GLUCOSE (POC) - 03/18/17 21:08</th> </tr> & lt;tr> <td>GLUCOSE (POC)</td> <td>222 mg/ dL</td> <td>70-99</td> </tr> < tr> <th colspan="10">GLUCOSE (POC) - 03/18/17 22:27& lt;/th> </tr> <tr> <td>GLUCOSE (POC)&lt ;/td> <td>143 mg/dL</td> <td>70-99</td > </tr> <tr> <th colspan="10" >PROTHROMBIN TIME WITH INR - 03/19/17 06:08</th> </tr> <tr> <td>INTERNATIONAL NORMAL RATIO</td> <td>1.1 </td> <td>0.9-1.1</td> </ tr> <tr> <td>PROTHROMBIN TIME</td> &lt ;td>13.0 sec</td> <td>10.0-12.8</td> </ tr> <tr> <th colspan="10">METABOLIC PANEL, COMPREHN - 03/19/17 06:08</th> </tr> <tr> <td>POTASSIUM</td> <td>4.4 mmol/L</td> <td>3.5-5.3</td> </tr> <tr> & lt;td>EST GFR (MDRD)</td> <td>40 mL/min</td> <td>> 59</td> </tr> <tr> <td>ANION GAP</td> <td>9 mmol/L</td> <td>5-15</td> </tr> <tr> < td>EST CrCl (CG)</td> <td>55 mL/min</td> <td& gt;> 59</td> </tr> <tr> <td& gt;GLUCOSE</td> <td>103 mg/dL</td> <td&gt ;70-99</td> </tr> <tr> <td> CALCIUM</td> <td>9.2 mg/dL</td> <td>8.5- 10.1</td> </tr> <tr> <td>BLOOD UREA NITROGEN</td> <td>39 mg/dL</td> <td& gt;7-20</td> </tr> <tr> <td>CREATININE </td> <td>1.3 mg/dL</td> <td>0.6-1.0& lt;/td> </tr> <tr> <td>SODIUM</td > <td>139 mmol/L</td> <td>135-148</td& gt; </tr> <tr> <td>CHLORIDE</td> <td>102mmol/L</td> <td>98-110</td> </tr> <tr><td>AST/SGOT</td> <td >13 Units/L</td> <td>10-37</td> </tr&gt ; <tr> <td>ALT/SGPT</td> <td> 26 Units/L</td> <td>< 66</td> </tr& gt; <tr> <td>CARBON DIOXIDE</td> < td>28 mmol/L</td> <td>21-32</td> </tr&gt ; <tr> <td>TOTAL PROTEIN</td> <td& gt;6.9 gm/dL</td> <td>6.4-8.2</td> </tr&gt ; <tr> <td>ALBUMIN</td> <td>3.1 gm/ dL</td><td>3.4-5.0</td> </tr> <tr> <td>BILI TOTAL</td> <td>0.4 mg/dL</td&gt ; <td>0.0-1.0</td> </tr> <tr> <td>ALKALINE PHOSPHATASE TOTAL</td> <td>42 IU/ L</td> <td>45-117</td> </tr> < tr> <th colspan="10">MAGNESIUM - 03/19/17 06:08</ th> </tr> <tr> <td>MAGNESIUM</td& gt; <td>2.1 mg/dL</td> <td>1.8-2.4</td&gt ; </tr> <tr> <th colspan="10"&gt ;CBC W/DIFF - 03/19/17 06:08</th> </tr> <tr> <td>EOSINOPHIL #</td> <td>0.1 k/cumm</td&gt ; <td>0.1-0.5</td> </tr> <tr> & lt;td>EOSINOPHIL %</td> <td>1 %</td& gt; <td>2-4</td> </tr> <tr> < td>GRANULOCYTE #</td> <td>9.0 k/cumm</td> <td>2.0-9.0</td> </tr> <tr> &lt ;td>GRANULOCYTE %</td> <td>72 %</td& gt; <td>50-75</td> </tr> <tr> <td>LYMPHOCYTE #</td> <td>2.2 k/cumm</td&gt ; <td>1.0-4.0</td> </tr> <tr> <td>LYMPHOCYTE %</td> <td>18 % </td> <td>20-30</td> </tr> <tr > <td>MEAN CELL HGB</td> <td>28.0 pg</ td> <td>27.0-33.0</td> </tr> <tr& gt; <td>MEAN CELL HGB CONCENTRATION</td> <td> 30.8 g/dL</td> <td>32.0-37.0</td> </tr> <tr> <td>MEAN CELLVOLUME</td> <td> 91.0 fl</td> <td>80.0-100.0</td> </tr> <tr> <td>MONOCYTE #</td> <td>1.2 k/ cumm</td> <td>0.1-1.0</td> </tr> <tr> <td>MONOCYTE %</td> <td> 9 %</td> <td>4-6</td> </tr> <tr> <td>RED BLOOD CELL</td> <td>3.57 m/ cumm</td> <td>4.00-6.00</td> </tr><tr > <td>RED CELL DISTRIBUTION WIDTH</td> <td& gt;16.2 %</td> <td>11.0-15.6</td> < /tr> <tr> <td>WHITE BLOOD CELL</td> <td>12.5 k/cumm</td> <td>5.0-10.0</td> </tr> <tr> <td>HEMOGLOBIN</td> < td>10.0 gm/dL</td> <td>12.0-16.0</td> </ tr> <tr> <td>HEMATOCRIT</td> < td>32.5 %</td> <td>37.0-47.0</td> </tr > <tr> <td>PLATELET COUNT</td> &lt ;td>307 k/cumm</td> <td>150-450</td> </tr> <tr> <th colspan="10">GLUCOSE (POC) - 10/29 06:26</th> </tr> <tr> <td> GLUCOSE (POC)</td> <td>110 mg/dL</td> <td>70- 99</td> </tr> <tr> <th colspan=&quot ;10">GLUCOSE (POC) - 03/19/17 11:07</th> </tr> <tr> <td>GLUCOSE (POC)</td> <td>143 mg/dL</td> <td>70-99</td> </tr> & lt;tr> <th colspan="10">B-TYPE NATRIURETIC PEPTIDE - 04/02/17 15:09</th> </tr> <tr> <td>B -TYPE NATRIURETIC PEPTIDE</td> <td>27 pg/mL</td> <td>< 100</td> </tr> <tr> <th colspan="10">CBC - 04/02/17 15:09</th> & lt;/tr> <tr> <td>MEAN CELL HGB</td> & lt;td>28.2 pg</td> <td>27.0-33.0</td> </ tr> <tr> <td>MEAN CELL HGB CONCENTRATION</td& gt; <td>31.8 g/dL</td> <td>32.0-37.0</td& gt; </tr> <tr> <td>MEAN CELL VOLUME< /td> <td>88.4 fl</td> <td>80.0-100.0</ td> </tr> <tr> <td>RED BLOOD CELL&lt ;/td> <td>3.80 m/cumm</td> <td>4.00-6.00& lt;/td> </tr> <tr> <td>RED CELL DISTRIBUTION WIDTH</td> <td>16.3 %</td> <td>11.0-15.6</td> </tr> <tr> < td>WHITE BLOOD CELL</td> <td>10.4 k/cumm</td> <td>5.0-10.0</td> </tr> <tr> < td>HEMOGLOBIN</td> <td>10.7 gm/dL</td> & lt;td>12.0-16.0</td> </tr> <tr> < td>HEMATOCRIT</td> <td>33.6 %</td> <td& gt;37.0-47.0</td> </tr> <tr> <td> PLATELET COUNT</td> <td>293 k/cumm</td> <td& gt;150-450</td> </tr> <tr> <th colspan="10">PROTHROMBIN TIME WITH INR - 04/02/17 15:09</th> </tr> <tr> <td>INTERNATIONAL NORMAL RATIO</td> <td>1.2 </td> <td>0.9-1.1</td& gt; </tr> <tr> <td>PROTHROMBINTIME</ td> <td>13.2 sec</td> <td>10.0-12.8</ td> </tr> <tr> <th colspan="10"> PARTIAL THROMBOPLASTIN TIME- 04/02/17 15:09</th> </tr> <tr> <td>PARTIAL THROMBOPLASTIN TIME</td> <td>26 sec</td> <td>25-37</td> </tr> <tr> <th colspan="10">METABOLIC PANEL, COMPREHN -04/02/17 15:09</th> </tr> <tr> <td>POTASSIUM</td> <td>4.3 mmol/L</td> <td>3.5-5.3</td> </tr> <tr> & lt;td>EST GFR (MDRD)</td> <td>40 mL/min</td> <td>> 59</td> </tr> <tr> <td>ANION GAP</td> <td>7 mmol/L</td> <td>5-15</td> </tr> <tr> &lt ;td>EST CrCl (CG)</td> <td>56 mL/min</td> <td>> 59</td> </tr> <tr> <td>GLUCOSE</td> <td>148 mg/dL</td> <td>70-99</td> </tr> <tr> <td& gt;CALCIUM</td> <td>9.7mg/dL</td> <td> 8.5-10.1</td> </tr> <tr> <td>BLOOD UREA NITROGEN</td> <td>51 mg/dL</td> <td>7- 20</td> </tr> <tr> <td>CREATININE </td> <td>1.3 mg/dL</td> <td>0.6-1.0</td&gt ; </tr> <tr> <td>SODIUM</td> <td>136 mmol/L</td> <td>135-148</td> </tr> <tr> <td>CHLORIDE</td> &lt ;td>100 mmol/L</td> <td>98-110</td> </tr > <tr> <td>AST/SGOT</td> <td&gt ;13 Units/L</td> <td>10-37</td> </tr> <tr> <td>ALT/SGPT</td> <td>28 Units/L</td> <td>< 66</td> </tr> <tr> <td>CARBON DIOXIDE</td> <td& gt;29 mmol/L</td> <td>21-32</td> </tr> <tr> <td>TOTALPROTEIN</td> <td> 7.1 gm/dL</td> <td>6.4-8.2</td> </tr> <tr> <td>ALBUMIN</td> <td>3.3 gm/dL&lt ;/td> <td>3.4-5.0</td> </tr> <tr& gt; <td>BILI TOTAL</td> <td>0.4 mg/dL</td > <td>0.0-1.0</td> </tr> <tr> <td>ALKALINE PHOSPHATASE TOTAL</td> <td>39 IU/L& lt;/td> <td>45-117</td> </tr> <tr > <th colspan="10">MAGNESIUM - 04/02/17 15:09</th > </tr> <tr> <td>MAGNESIUM</td&gt ; <td>1.9 mg/dL</td> <td>1.8-2.4</td> </tr> <tr> <th colspan="10"> THYROID STIM HORMONE (TSH) - 04/02/17 15:09</th> </tr> <tr> <td>THYROID STIM HORMONE (TSH)</td> & lt;td>0.87 uIU/mL</td> <td>0.34-4.82</td> & lt;/tr> <tr> <th colspan="10">GLUCOSE ( POC) - 04/02/17 15:10</th> </tr> <tr> & lt;td>GLUCOSE (POC)</td> <td>158 mg/dL</td> <td>70-99</td> </tr> <tr> &lt ;th colspan="10">GLUCOSE (POC) - 04/02/17 22:17</th> & lt;/tr> <tr> <td>GLUCOSE (POC)</td> <td>148 mg/dL</td> <td>70-99</td> </tr& gt; <tr> <th colspan="10">ARTERIAL BLOOD GAS - 04/03/17 04:40</th> </tr> <tr> & lt;td>ABG BASE EXCESS</td> <td>-4.2 meq/L</td> <td>-3.0-3.0</td> </tr> <tr> <td>ABG BICARBONATE</td> <td>23.0 meq/L</td&gt ; <td>23.0-28.0</td> </tr> <tr> <td>ABG PCO2</td> <td>52 mm Hg</td> <td>34-45</td> </tr> <tr> <td >ABG PH</td> <td>7.27 </td> <td> 7.35-7.45</td> </tr> <tr> <td> ABG PO2</td> <td>142 mm Hg</td> <td>75 -100</td></tr> <tr> <td>ABG O2 SATURATION</td> <td>99 %</td> <td >93-100</td> </tr> <tr> <th colspan=&quot ;10">METABOLIC PANEL, BASIC - 04/03/17 04:47</th> </tr& gt; <tr> <td>POTASSIUM</td> <td&gt ;6.4 mmol/L</td> <td>3.5-5.3</td> </tr> <tr> <td>EST GFR (MDRD)</td> <td& gt;18 mL/min</td> <td>> 59</td> </tr > <tr> <td>ANION GAP</td> <td& gt;9 mmol/L</td> <td>5-15</td> </tr> <tr> <td>EST CrCl (CG)</td> <td> 28 mL/min</td> <td>> 59</td> </tr&gt ; <tr> <td>GLUCOSE</td> <td> 203 mg/dL</td> <td>70-99</td> </tr> <tr> <td>CALCIUM</td> <td>8.7 mg/dL& lt;/td> <td>8.5-10.1</td> </tr> < tr> <td>BLOOD UREA NITROGEN</td> <td>61 mg/dL</td> <td>7-20</td> </tr><tr&gt ; <td>CREATININE</td> <td>2.6 mg/dL</td& gt;<td>0.6-1.0</td> </tr> <tr> & lt;td>SODIUM</td> <td>135 mmol/L</td> &lt ;td>135-148</td> </tr> <tr> <td> CHLORIDE</td> <td>101 mmol/L</td> <td>98- 110</td> </tr> <tr> <td>CARBON DIOXIDE</td> <td>25 mmol/L</td> <td>21 -32</td> </tr> <tr> <th colspan=& quot;10">CBC W/DIFF - 04/03/17 04:47</th> </tr> <tr> <td>GRANULOCYTE #</td> <td> 16.8 k/cumm</td> <td>2.0-9.0</td> </tr> <tr> <td>GRANULOCYTE %</td> <td>85 %</td> <td>50-75</td> </tr& gt; <tr> <td>LYMPHOCYTE #</td> <td >0.9 k/cumm</td> <td>1.0-4.0</td> </tr& gt; <tr> <td>LYMPHOCYTE %</td> <td>5 %</td> <td>20-30</td> & lt;/tr> <tr> <td>MEAN CELL HGB</td> <td>28.1 pg</td> <td>27.0-33.0</td> & lt;/tr> <tr> <td>MEAN CELL HGB CONCENTRATION</ td> <td>30.6 g/dL</td> <td>32.0-37.0</ td> </tr> <tr> <td>MEAN CELL VOLUME& lt;/td> <td>91.7 fl</td> <td>80.0-100.0& lt;/td> </tr> <tr> <td>MONOCYTE #&lt ;/td> <td>2.0 k/cumm</td> <td>0.1-1.0< /td> </tr> <tr> <td>MONOCYTE &# 37;</td> <td>10 %</td> <td>4-6 </td> </tr> <tr> <td>RED BLOOD CELL </td> <td>3.60 m/cumm</td> <td>4.00- 6.00</td> </tr> <tr> <td>RED CELL DISTRIBUTION WIDTH</td> <td>16.6 %</td> <td>11.0-15.6</td> </tr> <tr> <td>WHITE BLOOD CELL</td> <td>19.8 k/cumm< /td> <td>5.0-10.0</td> </tr> <tr& gt; <td>HEMOGLOBIN</td> <td>10.1 gm/dL</ td> <td>12.0-16.0</td> </tr> <tr& gt; <td>HEMATOCRIT</td> <td>33.0 %& lt;/td> <td>37.0-47.0</td> </tr> &lt ;tr> <td>PLATELET COUNT</td> <td>369 k/ cumm</td> <td>150-450</td> </tr> <tr> <th colspan="10">POTASSIUM - 10 05:45& lt;/th> </tr> <tr> <td>POTASSIUM</td& gt; <td>6.2 mmol/L</td> <td>3.5-5.3</td& gt; </tr> <tr> <th colspan="10"& gt;GLUCOSE (POC) - 04/03/17 06:12</th> </tr> <tr&gt ; <td>GLUCOSE (POC)</td> <td>208 mg/dL</ td> <td>70-99</td> </tr> <tr> <th colspan="10">METABOLIC PANEL, BASIC - 04/03/17 06: 50</th> </tr> <tr> <td>POTASSIUM& lt;/td> <td>6.3 mmol/L</td> <td>3.5-5.3</td& gt; </tr> <tr> <td>EST GFR (MDRD)</ td> <td>16 mL/min</td> <td>> 59</td&gt ; </tr> <tr> <td>ANION GAP</td> <td>12 mmol/L</td> <td>5-15</td> </tr> <tr> <td>EST CrCl (CG)</td> <td>25 mL/min</td> <td>> 59</td> </tr> <tr> <td>GLUCOSE</td> <td>198 mg/dL</td> <td>70-99</td> < /tr> <tr> <td>CALCIUM</td> <td& gt;8.8 mg/dL</td> <td>8.5-10.1</td> </tr&gt ; <tr> <td>BLOOD UREA NITROGEN</td> & lt;td>60 mg/dL</td> <td>7-20</td> </tr& gt; <tr> <td>CREATININE</td> <td& gt;2.9 mg/dL</td> <td>0.6-1.0</td> </tr&gt ; <tr> <td>SODIUM</td> <td>135 mmol/L</td> <td>135-148</td> </tr> <tr> <td>CHLORIDE</td> <td>99 mmol/ L</td> <td>98-110</td> </tr> < tr> <td>CARBON DIOXIDE</td> <td>24 mmol/L </td> <td>21-32</td> </tr> <tr > <th colspan="10">CBC - 04/03/17 06:57</th> </tr> <tr> <td>MEAN CELL HGB</td&gt ; <td>28.2 pg</td> <td>27.0-33.0</td> </tr> <tr> <td>MEAN CELL HGB CONCENTRATION</td> <td>30.7 g/dL</td> <td >32.0-37.0</td> </tr> <tr> <td> MEAN CELL VOLUME</td> <td>91.9 fl</td> < td>80.0-100.0</td> </tr> <tr> <td >RED BLOOD CELL</td> <td>3.69 m/cumm</td> <td>4.00-6.00</td> </tr> <tr> & lt;td>RED CELL DISTRIBUTION WIDTH</td> <td>16.7 &#37 ;</td> <td>11.0-15.6</td> </tr> & lt;tr> <td>WHITE BLOOD CELL</td> <td> 23.0 k/cumm</td> <td>5.0-10.0</td> </tr&gt ; <tr> <td>HEMOGLOBIN</td> <td> 10.4 gm/dL</td> <td>12.0-16.0</td> </tr&gt ; <tr> <td>HEMATOCRIT</td> <td> 33.9 %</td> <td>37.0-47.0</td> </tr > <tr> <td>PLATELET COUNT</td> &lt ;td>367 k/cumm</td> <td>150-450</td> </ tr> <tr> <th colspan="10">PROTHROMBIN TIME WITH INR - 04/03/17 06:57</th> </tr> <tr> <td>INTERNATIONAL NORMAL RATIO</td> <td>1.3 </td> <td>0.9-1.1</td> </tr> < tr> <td>PROTHROMBIN TIME</td> <td>14.3 sec</td> <td>10.0-12.8</td> </tr> <tr> <th colspan="10">PARTIAL THROMBOPLASTIN TIME - 1020/17 06:57</th> </tr> <tr> &lt ;td>PARTIAL THROMBOPLASTIN TIME</td> <td>32 sec</td> <td>25-37</td> </tr> <tr> & lt;th colspan="10">POTASSIUM - 04/03/17 08:35</th> &lt ;/tr> <tr> <td>POTASSIUM</td> < td>6.3 mmol/L</td> <td>3.5-5.3</td> </tr&gt ; <tr> <th colspan="10">ARTERIAL BLOOD GAS - 04/03/17 09:20</th> </tr> <tr> <td >ABG BASE EXCESS</td> <td>-4.4 meq/L</td> <td>-3.0-3.0</td> </tr> <tr> & lt;td>ABG BICARBONATE</td> <td>21.9 meq/L</td> <td>23.0-28.0</td> </tr> <tr> <td>ABG PCO2</td> <td>45 mm Hg</td> <td>34-45</td> </tr> <tr> <td& gt;ABG PH</td> <td>7.30 </td> <td>7.35 -7.45</td> </tr> <tr> <td>ABG PO2 </td> <td>89 mm Hg</td> <td>75-100</td&gt ; </tr> <tr> <td>ABG O2 SATURATION</ td> <td>96 %</td> <td>93-100</ td> </tr> <tr> <th colspan="10"> URINE CULTURE - 04/03/17 10:00</th> </tr> <tr> <td>Microbiology</td> <td> </td> &lt ;td /> </tr> <tr> <thcolspan="10& quot;>URINALYSIS, ROUTINE - 04/03/17 10:00</th> </tr> <tr> <td>UA LEUKOCYTE ESTERASE DIPSTICK</td> <td>2+ </td> <td>NEGATIVE</td> &lt ;/tr> <tr> <td>UA NITRITE DIPSTICK</td> <td>NEGATIVE </td> <td>NEGATIVE</td> </tr> <tr> <td>UA PROTEIN DIPSTICK</td > <td>1+ </td> <td>NEGATIVE</td> &lt ;/tr> <tr> <td>UA GLUCOSE DIPSTICK</td> <td>NEGATIVE </td><td>NEGATIVE</td> </ tr> <tr> <td>UA KETONE DIPSTICK</td> <td>TRACE </td> <td>NEGATIVE</td> & lt;/tr> <tr> <td>UA UROBILINOGEN DIPSTICK</td& gt; <td>NORMAL </td> <td>NORMAL</td> </tr> <tr> <td>UA BILIRUBIN DIPSTICK</td> <td>NEGATIVE </td> <td>NEGATIVE</td> </tr> <tr> <td>UA BLOOD DIPSTICK</ td> <td>TRACE </td> <td>NEGATIVE</td& gt; </tr> <tr> <td>UA SPECIFIC GRAVITY& lt;/td> <td>1.015 </td> <td>1.015-1.025& lt;/td> </tr> <tr> <td>UR PH</td& gt; <td>5.0 </td> <td>5.0-7.0</td> </tr> <tr> <th colspan="10">UA MICROSCOPIC - 10/ 10:00</th> </tr> <tr> <td>UA BACTERIA</td> <td>2+ </td> <td>NEGATIVE</td> </tr> <tr> &lt ;td>UA EPITHELIAL CELLS</td> <td>1+ epi/hpf</td> <td>0 - 1+</td> </tr> <tr> <td>UA RBC</td> <td>0-3 rbc/hpf</td> <td>0 - 3</td> </tr> <tr> <td>UA VOLUME FOR EXAM</td> <td>12.0 mL</td> <td&gt ;(12mL STD)</td> </tr> <tr> <td> UA WBC</td> <td>20-50 wbc/hpf</td> <td&gt ;0 - 5</td> </tr> <tr> <td>WBC CLUMPS</td> <td>PRESENT </td> <td> NEGATIVE</td> </tr> <tr> <th colspan ="10">GLUCOSE (POC) - 04/03/17 12:06</th> </tr> <tr> <td>GLUCOSE (POC)</td> <td& gt;214 mg/dL</td> <td>70-99</td> </tr> <tr> <th colspan="10">CARBAPENEMASE PCR - 04/03/17 12:56</th> </tr> <tr> <td& gt;Microbiology</td> <td> </td> <td /&gt ; </tr> <tr> <th colspan="10"> METABOLIC PANEL, BASIC - 04/03/17 16:35</th> </tr> &lt ;tr> <td>POTASSIUM</td> <td>6.0 mmol/L&lt ;/td> <td>3.5-5.3</td> </tr> <tr& gt; <td>EST GFR (MDRD)</td> <td>15 mL/min</td > <td>> 59</td> </tr> <tr& gt; <td>ANION GAP</td> <td>11 mmol/L</td&gt ; <td>5-15</td> </tr> <tr> <td>EST CrCl (CG)</td> <td>23 mL/min</td> <td>> 59</td> </tr> <tr> & lt;td>GLUCOSE</td> <td>257 mg/dL</td> &lt ;td>70-99</td> </tr> <tr> <td> CALCIUM</td> <td>9.0 mg/dL</td> <td>8.5- 10.1</td> </tr> <tr> <td>BLOOD UREA NITROGEN</td> <td>69 mg/dL</td> <td& gt;7-20</td> </tr> <tr> <td>CREATININE </td> <td>3.1 mg/dL</td> <td>0.6-1.0& lt;/td> </tr> <tr> <td>SODIUM</td > <td>135 mmol/L</td> <td>135-148</td& gt; </tr> <tr> <td>CHLORIDE</td> <td>99 mmol/L</td> <td>98-110</td> </tr> <tr> <td>CARBON DIOXIDE</td&gt ; <td>25 mmol/L</td> <td>21-32</td> </tr> <tr> <th colspan="10"> GLUCOSE (POC) - 04/03/17 17:40</th> </tr> <tr> <td>GLUCOSE (POC)</td> <td>281 mg/dL</td& gt; <td>70-99</td> </tr> <tr> <th colspan="10">GLUCOSE (POC) - 04/03/17 20:02</th&gt ; </tr> <tr> <td>GLUCOSE (POC)</td& gt; <td>223 mg/dL</td> <td>70-99</td> </tr> <tr> <th colspan="10"> GLUCOSE (POC) - 04/03/17 23:27</th> </tr> <tr> <td>GLUCOSE (POC)</td> <td>223 mg/dL</td&gt ; <td>70-99</td> </tr> <tr> <th colspan="10">CBC W/DIFF - 10/ 05:48</th> </tr> <tr> <td>EOSINOPHIL #</td> <td>0.1 k/cumm</td> <td>0.1-0.5</td> </tr> <tr> <td>EOSINOPHIL %</ td> <td>1 %</td> <td>2-4</td> </tr> <tr> <td>GRANULOCYTE #</td&gt ; <td>12.1 k/cumm</td> <td>2.0-9.0</td> </tr> <tr> <td>GRANULOCYTE %</td > <td>81 %</td> <td>50-75</td& gt; </tr> <tr> <td>LYMPHOCYTE #</td&gt ; <td>1.5k/cumm</td> <td>1.0-4.0</td> </tr> <tr> <td>LYMPHOCYTE %</td> <td>10 %</td> <td>20-30</td> </tr> <tr> <td>MEAN CELL HGB</td&gt ; <td>28.4 pg</td> <td>27.0-33.0</td> </tr> <tr> <td>MEAN CELL HGB CONCENTRATION </td> <td>31.4 g/dL</td> <td>32.0-37.0 </td> </tr> <tr> <td>MEAN CELL VOLUME</td> <td>90.2 fl</td> <td>80.0- 100.0</td> </tr> <tr> <td> MONOCYTE #</td> <td>1.1 k/cumm</td> <td& gt;0.1-1.0</td> </tr> <tr> <td> MONOCYTE %</td> <td>8 %</td> < td>4-6</td> </tr> <tr> <td> RED BLOOD CELL</td> <td>3.28 m/cumm</td> &lt ;td>4.00-6.00</td> </tr> <tr> <td >RED CELL DISTRIBUTION WIDTH</td> <td>16.7 %< /td> <td>11.0-15.6</td> </tr> <tr > <td>WHITE BLOOD CELL</td> <td>14.8 k/ cumm</td> <td>5.0-10.0</td> </tr> <tr > <td>HEMOGLOBIN</td> <td>9.3 gm/dL</ td> <td>12.0-16.0</td> </tr> <tr& gt; <td>HEMATOCRIT</td> <td>29.6 %& lt;/td> <td>37.0-47.0</td> </tr> &lt ;tr> <td>PLATELET COUNT</td> <td>280 k/ cumm</td> <td>150-450</td> </tr> <tr> <th colspan="10">METABOLIC PANEL, BASIC - 05:48</th> </tr> <tr> <td> POTASSIUM</td> <td>5.4 mmol/L</td> <td&gt ;3.5-5.3</td></tr> <tr> <td>EST GFR ( MDRD)</td> <td>16 mL/min</td> <td>&amp ;gt; 59</td> </tr> <tr> <td>ANION GAP</ td> <td>6 mmol/L</td> <td>5-15</td&gt ; </tr> <tr> <td>EST CrCl (CG)</td& gt; <td>25 mL/min</td> <td>> 59</ td> </tr> <tr> <td>GLUCOSE</td&gt ; <td>244 mg/dL</td> <td>70-99</td> </tr> <tr> <td>CALCIUM</td> <td>9.5 mg/dL</td> <td>8.5-10.1</td> </tr> <tr> <td>BLOOD UREA NITROGEN</td&gt ; <td>73 mg/dL</td> <td>7-20</td> </ tr> <tr> <td>CREATININE</td> < td>2.9 mg/dL</td> <td>0.6-1.0</td> </tr& gt; <tr> <td>SODIUM</td> <td> 135 mmol/L</td> <td>135-148</td> </tr> <tr> <td>CHLORIDE</td> <td>101 mmol/ L</td> <td>98-110</td> </tr> < tr> <td>CARBON DIOXIDE</td> <td>28 mmol/L </td> <td>21-32</td> </tr> <tr > <th colspan="10">AG HEPATITIS B SURF. - 04/04/17 05:48</th> </tr> <tr> <td>AG HEPATITIS B SURF.</td> <td>NEGATIVE </td> <td& gt;NEGATIVE</td> </tr> <tr> <th colspan="10">AB HEPATITIS C - 04/04/17 05:48</th> < /tr> <tr> <td>AB HEPATITIS C</td> <td&gt ;NEGATIVE </td> <td>NEGATIVE</td> </tr> <tr> <th colspan="10">HIV - 04/04/17 05: 48</th> </tr> <tr> <td>AB HIV 1 2</td> <td>NEGATIVE </td> <td> NEGATIVE</td> </tr> <tr> <td>HIV 1 P24 AG</td> <td>NEGATIVE </td> <td> NEGATIVE</td> </tr> <tr> <th colspan ="10">GLUCOSE (POC) - 04/04/17 06:21</th> </tr> <tr> <td>GLUCOSE (POC)</td> <td> 230 mg/dL</td> <td>70-99</td> </tr> <tr> <th colspan="10">GLUCOSE (POC) - 13:08</th> </tr> <tr> <td> GLUCOSE (POC)</td> <td>205 mg/dL</td> <td >70-99</td> </tr> <tr> <th colspan="10">GLUCOSE (POC) - 04/04/17 16:39</th> </ tr> <tr> <td>GLUCOSE (POC)</td> & lt;td>173 mg/dL</td> <td>70-99</td> </tr > <tr> <th colspan="10">GLUCOSE (POC) - 04/04/17 21:35</th> </tr> <tr> <td >GLUCOSE (POC)</td> <td>127 mg/dL</td> & lt;td>70-99</td> </tr> <tr> <th colspan="10">CBC - 04/05/17 05:08</th> </tr> <tr> <td>MEAN CELL HGB</td> <td> 28.1 pg</td> <td>27.0-33.0</td> </tr> <tr> <td>MEAN CELL HGB CONCENTRATION</td> <td>30.5 g/dL</td> <td>32.0-37.0</td> </tr> <tr> <td>MEAN CELL VOLUME</td> <td>92.1 fl</td> <td>80.0-100.0</td> </tr> <tr> <td>RED BLOOD CELL</td& gt; <td>2.67 m/cumm</td> <td>4.00-6.00</ td> </tr> <tr> <td>RED CELL DISTRIBUTION WIDTH</td> <td>16.7 %</td> <td>11.0-15.6</td> </tr> <tr> <td>WHITE BLOOD CELL</td> <td>10.1 k/cumm</td> <td>5.0-10.0</td> </tr> <tr> <td>HEMOGLOBIN</td> <td>7.5 gm/dL</td> <td>12.0-16.0</td> </tr> <tr> <td>HEMATOCRIT</td> <td>24.6 %</td& gt; <td>37.0-47.0</td> </tr> <tr&gt ; <td>PLATELET COUNT</td> <td>224 k/cumm< /td> <td>150-450</td> </tr> <tr& gt; <th colspan="10">METABOLIC PANEL, BASIC - 04/05/17 05:08</th> </tr> <tr> <td> POTASSIUM</td> <td>5.2 mmol/L</td> <td&gt ;3.5-5.3</td> </tr> <tr> <td>EST GFR (MDRD)</td> <td>15 mL/min</td> <td&gt ;> 59</td> </tr> <tr> <td> ANION GAP</td> <td>7 mmol/L</td> <td>5 -15</td> </tr> <tr> <td>EST CrCl (CG)</td> <td>23 mL/min</td> <td>&gt ; 59</td> </tr> <tr> <td>GLUCOSE&lt ;/td> <td>110 mg/dL</td> <td>70-99</td> </tr> <tr> <td>CALCIUM</td> <td>8.3 mg/dL</td> <td>8.5-10.1</td> </tr> <tr> <td>BLOOD UREA NITROGEN</td&gt ; <td>76 mg/dL</td> <td>7-20</td> </tr> <tr> <td>CREATININE</td> <td>3.1 mg/dL</td> <td>0.6-1.0</td> < /tr> <tr> <td>SODIUM</td> <td& gt;137 mmol/L</td> <td>135-148</td> </tr&gt ; <tr> <td>CHLORIDE</td> <td> 104 mmol/L</td> <td>98-110</td> </tr> <tr> <td>CARBON DIOXIDE</td> <td> 26 mmol/L</td> <td>21-32</td> </tr> <tr> <th colspan="10">GLUCOSE (POC) - 04/05/17 10:30& lt;/th> </tr> <tr> <td>GLUCOSE (POC)</ td> <td>176 mg/dL</td> <td>70-99</td> </tr> <tr> <th colspan="10"> GLUCOSE (POC) - 04/05/17 17:07</th> </tr> <tr> <td>GLUCOSE (POC)</td> <td>162 mg/dL</td& gt; <td>70-99</td> </tr> <tr> <th colspan="10">GLUCOSE (POC) - 04/05/17 20:54</th&gt ; </tr> <tr> <td>GLUCOSE (POC)</td& gt; <td>138 mg/dL</td> <td>70-99</td> </tr> <tr> <th colspan="10"> METABOLIC PANEL, BASIC - 04/06/17 05:05</th> </tr> &lt ;tr> <td>POTASSIUM</td> <td>5.3 mmol/L&lt ;/td> <td>3.5-5.3</td> </tr> <tr& gt; <td>EST GFR (MDRD)</td> <td>17 mL/min&lt ;/td> <td>> 59</td> </tr> &lt ;tr> <td>ANION GAP</td> <td>9 mmol/L</ td> <td>5-15</td> </tr> <tr> <td>EST CrCl (CG)</td> <td>27 mL/min</td> <td>> 59</td> </tr> <tr> <td>GLUCOSE</td> <td>107 mg/dL</td> <td>70-99</td> </tr> <tr> &lt ;td>CALCIUM</td> <td>8.5 mg/dL</td> < td>8.5-10.1</td> </tr> <tr> <td& gt;BLOOD UREA NITROGEN</td> <td>85 mg/dL</td> <td>7-20</td> </tr> <tr> <td >CREATININE</td> <td>2.7mg/dL</td> <td >0.6-1.0</td> </tr> <tr><td>SODIUM</ td> <td>135 mmol/L</td> <td>135-148</ td> </tr> <tr> <td>CHLORIDE</td& gt; <td>103 mmol/L</td> <td>98-110</td&gt ; </tr> <tr> <td>CARBON DIOXIDE</td> <td>23 mmol/L</td> <td>21-32</td> </tr> <tr> <th colspan="10">CBC - 10// 05:05</th> </tr> <tr> <td >MEAN CELL HGB</td> <td>28.2 pg</td> < td>27.0-33.0</td> </tr> <tr> <td& gt;MEAN CELL HGB CONCENTRATION</td> <td>30.9g/dL</td&gt ; <td>32.0-37.0</td> </tr> <tr> & lt;td>MEAN CELL VOLUME</td> <td>91.4 fl</td> <td>80.0-100.0</td> </tr> <tr> <td>RED BLOOD CELL</td> <td>2.80 m/cumm</td> <td>4.00-6.00</td> </tr> <tr> <td>RED CELL DISTRIBUTION WIDTH</td> <td>16.6 & amp;#37;</td> <td>11.0-15.6</td> </tr> <tr> <td>WHITE BLOOD CELL</td> <td> 9.3 k/cumm</td> <td>5.0-10.0</td> </tr> <tr> <td>HEMOGLOBIN</td> <td>7.9 gm/dL</td> <td>12.0-16.0</td> </tr> &lt ;tr> <td>HEMATOCRIT</td> <td>25.6 &# 37;</td> <td>37.0-47.0</td> </tr> & lt;tr> <td>PLATELET COUNT</td> <td>249 k/ cumm</td> <td>150-450</td> </tr> < tr> <th colspan="10">GLUCOSE (POC) - 04/06/1717:34& lt;/th> </tr> <tr> <td>GLUCOSE (POC) </td> <td>184 mg/dL</td> <td>70-99</td& gt; </tr> <tr> <th colspan="10"& gt;GLUCOSE (POC) - 04/06/17 21:11</th> </tr> <tr&gt ; <td>GLUCOSE (POC)</td> <td>154 mg/dL</ td> <td>70-99</td> </tr> <tr> <thcolspan="10">VENOUS BLOOD GAS - 04/07/17 03:50</ th> </tr> <tr> <td>VBG BASE EXCESS& lt;/td> <td>-1.9 mEq/L</td> <td>-3.0-3.0</td& gt; </tr> <tr> <td>VBG BICARBONATE</ td> <td>23.1 meq/L</td> <td>21-30</td& gt; </tr> <tr> <td>VBG PCO2</td> <td>40 mm Hg</td> <td>41-51</td> </tr> <tr> <td>VBG PH</td> <td>7.38 </td> <td>7.33-7.43</td> </ tr> <tr> <td>VBG PO2</td> <td& gt;74 mm Hg</td> <td>35-40</td> </tr> <tr> <td>VBG O2 SATURATION</td> <td >94 %</td> <td>65-75</td> </tr&gt ; <tr> <th colspan="10">CBC W/DIFF - 04/07 03:50</th> </tr> <tr> <td> EOSINOPHIL #</td> <td>0.1 k/cumm</td> <td> 0.1-0.5</td> </tr> <tr> <td> EOSINOPHIL %</td> <td>1 %</td> <td>2-4</td> </tr> <tr> < td>GRANULOCYTE #</td> <td>6.2 k/cumm</td> <td>2.0-9.0</td> </tr> <tr> <td> GRANULOCYTE %</td> <td>72 %</td> <td>50-75</td> </tr> <tr> < td>LYMPHOCYTE #</td> <td>1.3 k/cumm</td> <td>1.0-4.0</td> </tr> <tr> < td>LYMPHOCYTE %</td> <td>15 %</td&gt ; <td>20-30</td> </tr> <tr> <td>MEAN CELL HGB</td> <td>27.7 pg</td> <td>27.0-33.0</td> </tr> <tr> <td>MEAN CELL HGB CONCENTRATION</td> <td>30.6 g /dL</td> <td>32.0-37.0</td> </tr> <tr> <td>MEAN CELL VOLUME</td> <td>90.6 fl</td> <td>80.0-100.0</td> </tr> <tr > <td>MONOCYTE #</td> <td>1.0 k/cumm</ td> <td>0.1-1.0</td> </tr> <tr> <td>MONOCYTE %</td> <td>12 %</ td> <td>4-6</td> </tr> <tr> <td>RED BLOOD CELL</td> <td>3.10 m/cumm</ td> <td>4.00-6.00</td> </tr> <tr& gt;<td>RED CELL DISTRIBUTION WIDTH</td> <td>16.6 &amp ;#37;</td> <td>11.0-15.6</td> </tr> < tr> <td>WHITE BLOODCELL</td> <td>8.6 k/ cumm</td> <td>5.0-10.0</td> </tr> < tr> <td>HEMOGLOBIN</td> <td>8.6 gm/dL< /td> <td>12.0-16.0</td> </tr> <tr > <td>HEMATOCRIT</td> <td>28.1 %& lt;/td> <td>37.0-47.0</td> </tr> &lt ;tr> <td>PLATELET COUNT</td> <td>304 k/cumm</ td> <td>150-450</td> </tr> <tr&gt ; <th colspan="10">RETICULOCYTE COUNT - 04/07/17 03:50& lt;/th> </tr> <tr> <td>IMMATURE FRACTION </td> <td>24.9 %</td> <td>9.3- 17.4</td> </tr> <tr> <td> ABSOLUTE RETIC COUNT</td> <td>102.3 k/cumm</td> &lt ;td>39.1-57.0</td> </tr> <tr> <td >PERCENT RETIC</td> <td>3.3 %</td> <td>0.86-1.36</td> </tr> <tr> < td>RETIC HGB EQUIVALENT</td> <td>29.3 pg/cell</td&gt ; <td>27.1-35.2</td> </tr> <tr> <th colspan="10">HEMOGLOBIN A1C - 04/07/17 03:50</th > </tr> <tr> <td>HEMOGLOBIN A1C</ td> <td>6.9 %</td> <td>< 5.7</td> </tr> <tr><th colspan="10" >IRON W/ BINDING CAPACITY - 04/07/17 03:50</th> </tr> <tr> <td>IRON SATURATION</td> <td> 5 % SAT</td> <td>11-46</td> </tr&gt ; <tr> <td>IRON BINDING CAPACITY, TOTAL</td> <td>345 mcg/dL</td> <td>250-450</td> </tr> <tr> <td>IRON</td> <td& gt;18 mcg/dL</td> <td>35-150</td> </tr> <tr> <th colspan="10">METABOLIC PANEL, BASIC - 04/07/17 03:50</th> </tr> <tr> &lt ;td>POTASSIUM</td> <td>4.9 mmol/L</td> & lt;td>3.5-5.3</td> </tr> <tr> <td >EST GFR (MDRD)</td> <td>28 mL/min</td> & lt;td>> 59</td> </tr> <tr> & lt;td>ANION GAP</td><td>10 mmol/L</td> <td>5 -15</td> </tr> <tr> <td>EST CrCl (CG)</td> <td>40 mL/min</td> <td>& gt; 59</td> </tr> <tr> <td> GLUCOSE</td> <td>109 mg/dL</td> <td>70 -99</td> </tr> <tr> <td>CALCIUM</td& gt; <td>8.4 mg/dL</td> <td>8.5-10.1</td& gt; </tr> <tr> <td>BLOOD UREA NITROGEN& lt;/td> <td>79 mg/dL</td> <td>7-20</td > </tr> <tr> <td>CREATININE</td& gt; <td>1.8 mg/dL</td> <td>0.6-1.0</td&gt ; </tr> <tr> <td>SODIUM</td> <td>140 mmol/L</td> <td>135-148</td> < /tr> <tr> <td>CHLORIDE</td> <td >105 mmol/L</td> <td>98-110</td> </tr&gt ; <tr> <td>CARBON DIOXIDE</td> <td >25 mmol/L</td> <td>21-32</td> </tr> <tr> <th colspan="10">LACTATE DEHYDROGENASE (LDH/LD) - 04/07/17 03:50</th> </tr> &lt ;tr> <td>LACTATE DEHYDROGENASE (LDH/LD)</td> & lt;td>330 Units/L</td> <td>81-234</td> < /tr> <tr> <th colspan="10">FERRITIN - 04/07/17 03:50</th> </tr> <tr> <td& gt;FERRITIN</td> <td>42 ng/mL</td> <td&gt ;8-252</td> </tr> <tr> <th colspan=& quot;10">THYROID STIM HORMONE (TSH) - 04/07/17 03:50</th> & lt;/tr> <tr> <td>THYROID STIM HORMONE (TSH)</ td> <td>1.54 uIU/mL</td> <td>0.34-4.82&lt ;/td> </tr> <tr> <th colspan="10& quot;>FOLIC ACID,SERUM - 04/07/17 03:50</th> </tr> <tr> <td>FOLIC ACID,SERUM</td> <td>> 20.0 ng/mL</td> <td>> 3.4</td> </tr& gt; <tr> <th colspan="10">VITAMIN B12 - 03:50</th> </tr> <tr> <td> VITAMIN B12</td> <td>488 pg/mL</td> <td& gt;193-986</td> </tr> <tr> <th colspan=& quot;10">HAPTOGLOBIN - 04/07/17 03:50</th> </tr> < tr> <td>HAPTOGLOBIN</td> <td>407 mg/dL&lt ;/td> <td>30-200</td> </tr> <tr> <th colspan="10">GLUCOSE (POC) - 04/07/17 07:42</th> </tr> <tr> <td>GLUCOSE (POC)</td&gt ; <td>123 mg/dL</td> <td>70-99</td> </tr> <tr> <th colspan="10"> GLUCOSE (POC) - 04/07/17 11:38</th> </tr> <tr> <td>GLUCOSE (POC)</td> <td>218 mg/dL</td& gt; <td>70-99</td> </tr> <tr> <th colspan="10">FECAL OCCULT BLOOD - 04/07/17 12:05</th > </tr> <tr> <td>Microbiology</td > <td> </td> <td /> </tr> <tr> <th colspan="10">GLUCOSE (POC) - 04/07 17:25</th> </tr> <tr> <td>GLUCOSE ( POC)</td> <td>221 mg/dL</td> <td>70-99 </td> </tr> <tr> <th colspan=" 10">GLUCOSE (POC) - 04/07/17 20:28</th> </tr> <tr> <td>GLUCOSE (POC)</td> <td>151 mg /dL</td> <td>70-99</td> </tr> &lt ;tr> <th colspan="10">CBC W/DIFF - 04/08/17 04:02&lt ;/th> </tr> <tr> <td>COMMENT</td& gt; <td>REVIEWED </td> <td /> </tr > <tr> <td>EOSINOPHIL #</td> < td>0.1 k/cumm</td> <td>0.1-0.5</td> </tr&gt ; <tr> <td>EOSINOPHIL %</td> <td>1 %</td> <td>2-4</td> </ tr> <tr> <td>GRANULOCYTE #</td> <td >6.1 k/cumm</td> <td>2.0-9.0</td> </tr& gt; <tr> <td>GRANULOCYTE %</td> <td>70 %</td> <td>50-75</td> </tr> <tr> <td>LYMPHOCYTE #</td> <td>1.4 k/cumm</td> <td>1.0-4.0</td> </tr> <tr> <td>LYMPHOCYTE %</td& gt; <td>16 %</td> <td>20-30</td& gt; </tr> <tr> <td>MEAN CELL HGB</td > <td>27.7 pg</td> <td>27.0-33.0</td& gt; </tr> <tr> <td>MEAN CELL HGB CONCENTRATION</td> <td>30.5 g/dL</td> <td& gt;32.0-37.0</td> </tr> <tr> <td> MEAN CELL VOLUME</td> <td>91.0 fl</td> < td>80.0-100.0</td> </tr> <tr> <td& gt;MONOCYTE #</td> <td>1.1k/cumm</td> <td >0.1-1.0</td> </tr> <tr> <td>MONOCYTE & amp;#37;</td> <td>12 %</td> <td& gt;4-6</td> </tr> <tr> <td>RED BLOOD CELL</td> <td>3.21 m/cumm</td> <td> 4.00-6.00</td> </tr> <tr> <td>RED CELL DISTRIBUTION WIDTH</td> <td>16.7 %</td> <td>11.0-15.6</td> </tr> <tr> <td>WHITE BLOOD CELL</td> <td>8.7 k/cumm</td> <td>5.0-10.0</td> </tr> <tr> <td>HEMOGLOBIN</td> <td>8.9 gm/dL</td> <td>12.0-16.0</td> </tr> <tr> < td>HEMATOCRIT</td> <td>29.2 %</td> & lt;td>37.0-47.0</td> </tr> <tr> < td>PLATELET COUNT</td> <td>307 k/cumm</td> <td>150-450</td> </tr> <tr> < th colspan="10">RENAL FUNCTION PANEL - 04/08/17 04:02</th> </tr> <tr> <td>POTASSIUM</td> <td>4.4 mmol/L</td> <td>3.5-5.3</td> </tr> <tr> <td>EST GFR (MDRD)</td> <td>40 mL/min</td> <td>> 59</td> </tr> <tr> <td>ANION GAP</td> <td>7 mmol/L</td> <td>5-15</td> </ tr> <tr> <td>EST CrCl (CG)</td> & lt;td>56 mL/min</td> <td>> 59</td> & lt;/tr> <tr> <td>GLUCOSE</td> < td>97 mg/dL</td> <td>70-99</td> </tr> <tr> <td>CALCIUM</td> <td>9.2 mg/dL</td> <td>8.5-10.1</td> </tr> <tr> <td>BLOOD UREA NITROGEN</td> <td& gt;71 mg/dL</td> <td>7-20</td> </tr> <tr> <td>CREATININE</td> <td>1.3 mg/dL</td> <td>0.6-1.0</td> </tr> <tr> <td>SODIUM</td> <td>142 mmol/L& lt;/td> <td>135-148</td> </tr> < tr> <td>CHLORIDE</td> <td>108 mmol/L</td> <td>98-110</td> </tr> <tr> <td>CARBON DIOXIDE</td> <td>27 mmol/L</td>& lt;td>21-32</td> </tr> <tr> <td& gt;ALBUMIN</td> <td>2.6 gm/dL</td> <td&gt ;3.4-5.0</td> </tr> <tr> <td> PHOSPHORUS</td> <td>3.5 mg/dL</td> <td>2.5- 4.9</td> </tr> <tr> <th colspan=& quot;10">GLUCOSE (POC) - 04/08/17 06:26</th> </tr> <tr> <td>GLUCOSE (POC)</td> <td> 110 mg/dL</td> <td>70-99</td> </tr> <tr> <th colspan="10">GLUCOSE (POC)- 11:17</th> </tr> <tr> <td> GLUCOSE (POC)</td> <td>507 mg/dL</td> <td >70-99</td> </tr> <tr> <th colspan="10">GLUCOSE (POC) - 04/08/17 11:18</th> </ tr> <tr> <td>GLUCOSE (POC)</td> & lt;td>207 mg/dL</td> <td>70-99</td> </tr > <tr> <th colspan="10">URINALYSIS, ROUTINE - 04/08/17 15:19</th> </tr> <tr> <td >UA LEUKOCYTE ESTERASE DIPSTICK</td> <td>2+ </td> <td>NEGATIVE</td> </tr> <tr> <td>UA NITRITE DIPSTICK</td> <td>POSITIVE < /td> <td>NEGATIVE</td> </tr> <tr& gt; <td>UA PROTEIN DIPSTICK</td> <td>TRACE & lt;/td> <td>NEGATIVE</td> </tr> <tr& gt; <td>UA GLUCOSE DIPSTICK</td> <td> NEGATIVE </td> <td>NEGATIVE</td> </tr> <tr> <td>UA KETONE DIPSTICK</td> < td>TRACE </td> <td>NEGATIVE</td> </tr&gt ; <tr> <td>UA UROBILINOGEN DIPSTICK</td> & lt;td>NORMAL </td> <td>NORMAL</td> </tr& gt; <tr> <td>UA BILIRUBIN DIPSTICK</td> <td>NEGATIVE </td> <td>NEGATIVE</td> &lt ;/tr> <tr> <td>UA BLOODDIPSTICK</td> <td>3+ </td> <td>NEGATIVE</td> </ tr> <tr> <td>UA SPECIFIC GRAVITY</td> <td>1.015 </td> <td>1.015-1.025</td> </tr> <tr> <td>UR PH</td> <td> 5.0 </td> <td>5.0-7.0</td> </tr> <tr> <th colspan="10">UA MICROSCOPIC - 04/08/17 15:19</th> </tr> <tr> <td>UA AMORPHOUS SEDIMENT</td> <td>NEGATIVE </td> & lt;td /> </tr> <tr> <td>UA BACTERIA& lt;/td> <td>3+ </td> <td>NEGATIVE</td& gt; </tr> <tr> <td>UA EPITHELIAL CELLS& lt;/td> <td>3+ epi/hpf</td> <td>0 - 1+&lt ;/td> </tr> <tr> <td>UA MUCUS</td > <td>NEGATIVE </td> <td>NEG TO 1+</td& gt; </tr> <tr> <td>UA RBC</td> <td>3-5 rbc/hpf</td> <td>0 - 3</td> </tr> <tr> <td>UA TRICHOMONAS</td> <td>NEGATIVE </td> <td>NEGATIVE</td> </tr> <tr> <td>UA VOLUME FOR EXAM</ td> <td>12.0 mL</td> <td>(12mL STD)</ td> </tr> <tr> <td>UA URIC ACID CRYSTALS</td> <td>PRESENT </td> <td> NEGATIVE</td> </tr> <tr> <td>UA WBC& lt;/td> <td>10-20 wbc/hpf</td> <td>0 - 5</td > </tr> <tr> <td>UA YEAST</td&gt ; <td>NEGATIVE </td> <td>NEGATIVE</td&gt ; </tr> <tr> <th colspan="10"&gt ;UR SODIUM - 04/08/17 15:19</th> </tr> <tr> <td>UR SODIUM COMMENT</td> <td>RANDOM </td&gt ; <td /> </tr> <tr> <td> UR SODIUM LEVEL</td> <td>47 mmol/L</td> < td>20-40</td> </tr> <tr> <th colspan="10">UR CREATININE - 04/08/17 15:19</th> </ tr> <tr> <td>UR CREATININE COMMENT</td> <td>RANDOM </td> <td /> </tr> <tr> <td>UR CREATININE LEVEL</td> < td>90.4 mg/dL</td> <td>44-467</td> </tr> <tr> <th colspan="10">URINE CULTURE - 04/08 15:19</th> </tr> <tr> <td> Microbiology</td> <td> </td> <td /> </tr> <tr> <th colspan="10"> GLUCOSE (POC) - 04/08/17 16:30</th> </tr> <tr> <td>GLUCOSE (POC)</td> <td>194 mg/dL</td& gt; <td>70-99</td> </tr> <tr> <th colspan="10">GLUCOSE (POC) - 04/08/17 20:37</th> </tr> <tr> <td>GLUCOSE (POC)</td> <td>132 mg/dL</td> <td>70-99</td> & lt;/tr> <tr> <th colspan="10">CBC W/ DIFF - 04/09/17 04:01</th> </tr> <tr> & lt;td>COMMENT</td> <td>REVIEWED </td> &lt ;td /> </tr> <tr> <td>EOSINOPHIL #& lt;/td> <td>0.1 k/cumm</td> <td>0.1-0.5& lt;/td> </tr> <tr> <td>EOSINOPHIL & amp;#37;</td> <td>1 %</td> <td&gt ;2-4</td> </tr> <tr> <td> GRANULOCYTE #</td> <td>8.4 k/cumm</td> < td>2.0-9.0</td> </tr> <tr> <td&gt ;GRANULOCYTE %</td> <td>75 %</td> <td>50-75</td> </tr> <tr> < td>LYMPHOCYTE #</td> <td>1.7 k/cumm</td> <td>1.0-4.0</td> </tr> <tr> < td>LYMPHOCYTE %</td> <td>15 %</td&gt ; <td>20-30</td> </tr> <tr><td >MEAN CELL HGB</td> <td>27.8 pg</td> < td>27.0-33.0</td> </tr> <tr> <td& gt;MEAN CELL HGB CONCENTRATION</td> <td>30.1 g/dL</td&gt ; <td>32.0-37.0</td> </tr> <tr> <td>MEAN CELL VOLUME</td> <td>92.4 fl</td > <td>80.0-100.0</td> </tr> <tr& gt; <td>MONOCYTE #</td> <td>1.0 k/cumm</ td> <td>0.1-1.0</td> </tr> <tr&gt ; <td>MONOCYTE %</td> <td>9 &#37 ;</td> <td>4-6</td> </tr> <tr& gt; <td>RED BLOOD CELL</td> <td>3.31 m/cumm&lt ;/td> <td>4.00-6.00</td> </tr> < tr> <td>RED CELL DISTRIBUTION WIDTH</td> <td >16.9 %</td> <td>11.0-15.6</td> &lt ;/tr> <tr> <td>WHITE BLOOD CELL</td> <td>11.3 k/cumm</td> <td>5.0-10.0</td> </tr> <tr> <td>HEMOGLOBIN</td> <td>9.2 gm/dL</td> <td>12.0-16.0</td> </tr> <tr> <td>HEMATOCRIT</td> <td>30.6 %</td> <td>37.0-47.0</td> </tr> <tr> <td>PLATELET COUNT</td& gt; <td>333 k/cumm</td> <td>150-450</td& gt; </tr> <tr> <th colspan="10"& gt;METABOLIC PANEL, BASIC - 04/09/17 04:01</th> </tr> <tr> <td>POTASSIUM</td> <td>4.6 mmol/L </td> <td>3.5-5.3</td> </tr> < tr> <td>EST GFR (MDRD)</td> <td>40 mL/min </td> <td>> 59</td> </tr> <tr> <td>ANION GAP</td> <td>9 mmol/L& lt;/td> <td>5-15</td> </tr> <tr& gt; <td>EST CrCl (CG)</td> <td>56 mL/min< /td> <td>> 59</td> </tr> < tr> <td>GLUCOSE</td> <td>110 mg/dL</td > <td>70-99</td> </tr> <tr> <td>CALCIUM</td> <td>8.9 mg/dL</td> <td>8.5-10.1</td> </tr> <tr> <td>BLOOD UREA NITROGEN</td> <td>53 mg/dL</td& gt; <td>7-20</td> </tr> <tr> <td>CREATININE</td> <td>1.3 mg/dL</td> <td>0.6-1.0</td> </tr> <tr> <td>SODIUM</td> <td>144 mmol/L</td> & lt;td>135-148</td> </tr> <tr> <td >CHLORIDE</td> <td>108 mmol/L</td> <td >98-110</td> </tr> <tr> <td> CARBON DIOXIDE</td> <td>27 mmol/L</td> < td>21-32</td> </tr> <tr> <th colspan=& quot;10">GLUCOSE (POC) - 04/09/17 06:14</th> </tr> <tr> <td>GLUCOSE (POC)</td> <td>111 mg /dL</td> <td>70-99</td> </tr> &lt ;tr> <th colspan="10">GLUCOSE (POC) - 04/09/17 11:08 </th> </tr> <tr> <td>GLUCOSE (POC )</td> <td>147 mg/dL</td><td>70-99</td> </tr> </tbody> </table> </text> < entry> <organizer moodCode="EVN" classCode="BATTERY&quot ;> <templateId root="[id number]" /> <id nullFlavor="NA" /> <code codeSystem=" local" code="BNP" displayName="B-TYPE NATRIURETIC PEPTIDE& quot; /> <statusCode code="completed" /> < component> <observation moodCode="EVN" classCode="OBS "> <templateId root="[id number]& quot; /> <id nullFlavor="NA" /> <code codeSystem="local" code="BNP" displayName="B-TYPE NATRIURETIC PEPTIDE" /> <statusCode code="completed& quot; /> <effectiveTime value="[id number]" /> <value unit="pg/mL" xsi:type="PQ" value="22& quot; /> <referenceRange> <observationRange> <text>< 100</text> </ observationRange> </referenceRange> </observation> & lt;/component> </organizer> </entry> <entry> < organizer moodCode="EVN" classCode="BATTERY"> < templateId root="[id number]" /> <id nullFlavor="NA" /> <code codeSystem="local" code= "CBC" displayName="CBC" /> <statusCode code=&quot ;completed" /> <component><observation moodCode="EVN& quot; classCode="OBS"> <templateId root=" [id number]" /> <id nullFlavor="NA& quot; /> <code codeSystem="local" code="MCH" displayName="MEAN CELL HGB"/> <statusCode code=" completed" /> <effectiveTime value="[id number]" /> <value unit="pg" xsi:type="PQ" value=&quot ;28.2" /> <referenceRange> < observationRange> <text>27.0-33.0</text> </observationRange> </referenceRange> </ observation> </component> <component> < observation moodCode="EVN" classCode="OBS"> < templateId root="[id number]" /> < id nullFlavor="NA" /> <code codeSystem="local&quot ; code="MCHC" displayName="MEAN CELL HGB CONCENTRATION" /&gt ; <statusCode code="completed" /> < effectiveTime value="[id number]" /> <value unit=&quot ;g/dL" xsi:type="PQ" value="31.4" /> < interpretationCode codeSystem="local" code="*" /> <referenceRange> <observationRange> < text>32.0-37.0</text> </observationRange> &lt ;/referenceRange> </observation> </component> & lt;component> <observation moodCode="EVN" classCode=&quot ;OBS"> <templateId root="[id number] " /> <id nullFlavor="NA" /> <code codeSystem="local" code="MCV" displayName="MEAN CELL VOLUME" /> <statusCode code="completed" /> <effectiveTime value="233047951411" /> <value unit=& quot;fl" xsi:type="PQ" value="89.7" /> < referenceRange> <observationRange> <text> 80.0-100.0</text> </observationRange> </ referenceRange> </observation> </component> < component> <observation moodCode="EVN" classCode=" OBS"> <templateId root="[id number]& quot; /> <id nullFlavor="NA" /> <code codeSystem="local" code="RBC" displayName="RED BLOOD CELL" /> <statusCode code="completed" /> <effectiveTime value="062382370791" /> <value unit="m/cumm" xsi:type="PQ" value="3.80" /> <interpretationCode codeSystem="local" code="*" /& gt; <referenceRange> <observationRange> < text>4.00-6.00</text> </observationRange> &lt ;/referenceRange> </observation> </component>< component> <observation moodCode="EVN" classCode=" OBS"> <templateId root="[id number]" /> <id nullFlavor="NA" /> <code codeSystem="local" code="RDW" displayName="RED CELL DISTRIBUTION WIDTH" /> <statusCode code="completed&quot ; /> <effectiveTime value="048481682522" /> <value unit="%" xsi:type="PQ" value="16.1& quot; /> <interpretationCode codeSystem="local" code=& quot;*" /> <referenceRange> < observationRange> <text>11.0-15.6</text> </observationRange> </referenceRange> </observation > </component> <component> <observation moodCode="EVN" classCode="OBS"> <templateId root="[id number]" /> <id nullFlavor ="NA" /> <code codeSystem="local" code=" WBC" displayName="WHITE BLOOD CELL" /> < statusCode code="completed" /> <effectiveTime value=& quot;[id number]" /> <value unit="k/cumm" xsi: type="PQ" value="15.3" /> < interpretationCode codeSystem="local" code="*" /> <referenceRange> <observationRange> <text>5.0- 10.0</text> </observationRange> </ referenceRange> </observation> </component> < component> <observation moodCode="EVN" classCode=" OBS"> <templateId root="[id number]& quot; /> <id nullFlavor="NA" /> <code codeSystem="local" code="HGBT" displayName="HEMOGLOBIN& quot; /> <statusCode code="completed" /> & lt;effectiveTime value="[id number]" /> <value unit=& quot;gm/dL" xsi:type="PQ" value="10.7" /> & lt;interpretationCode codeSystem="local" code="*" /> <referenceRange> <observationRange> & lt;text>12.0-16.0</text> </observationRange> </referenceRange> </observation> </component> <component> <observation moodCode="EVN" classCode=& quot;OBS"> <templateId root=" [id number].2" /> <id nullFlavor="NA& quot; /> <code codeSystem="local" code="HCTT&quot ; displayName="HEMATOCRIT" /> <statusCode code=" completed" /> <effectiveTime value="144327315072" /> <value unit="%" xsi:type="PQ" value="34.1" /> <interpretationCode codeSystem=" local" code="*" /> <referenceRange> < observationRange> <text>37.0-47.0</text> </observationRange> </referenceRange> </ observation> </component> <component> < observation moodCode="EVN" classCode="OBS"> < templateId root="[id number]" /> < id nullFlavor="NA" /> <code codeSystem="local&quot ; code="PLTT" displayName="PLATELET COUNT" /> & lt;statusCode code="completed" /><effectiveTime value=" [id number]" /> <value unit="k/cumm" xsi:type=& quot;PQ" value="340" /> <referenceRange> <observationRange> <text>150-450</text> </observationRange> </referenceRange> </ observation> </component> </organizer> </entry> & lt;entry> <organizer moodCode="EVN" classCode="BATTERY& quot;> <templateId root="2.16.840.1.211160.10.20.22.4.1" /& gt; <id nullFlavor="NA" /> <code codeSystem=" local" code="PT" displayName="PROTHROMBIN TIME WITH INR&quot ; /> <statusCode code="completed" /> <component> <observation moodCode="EVN" classCode="OBS"> <templateId root="2.16.840.1.505018.10.20.22.4.2" /> <id nullFlavor="NA" /> <code codeSystem=" local" code="INRX" displayName="INTERNATIONAL NORMAL RATIO& quot; /> <statusCode code="completed" /> & lt;effectiveTime value="956047012800" /> <value unit=& quot;" xsi:type="PQ" value="1.1" /> < referenceRange> <observationRange> <text> 0.9-1.1</text> </observationRange> </ referenceRange> </observation> </component> < component> <observation moodCode="EVN" classCode=" OBS"> <templateId root="2.16.840.1.493166.10.20.22.4.2& quot; /> <id nullFlavor="NA" /> <code codeSystem="local" code="PTPAT" displayName=" PROTHROMBIN TIME" /> <statusCode code="completed" /> <effectiveTime value="313968696774" /> & lt;value unit="sec" xsi:type="PQ" value="12.9" /& gt; <interpretationCode codeSystem="local" code="*& quot; /> <referenceRange> <observationRange> <text>10.0-12.8</text> </observationRange> </referenceRange> </observation> </component& gt; </organizer> </entry><entry> <organizer moodCode ="EVN" classCode="BATTERY"> <templateId root=& quot;2.16.840.1.309111.10.20.22.4.1" /> <id nullFlavor="NA& quot;/> <code codeSystem="local" code="PTT" displayName="PARTIAL THROMBOPLASTIN TIME" /> <statusCode code="completed" /> <component> <observation moodCode="EVN" classCode="OBS"> <templateId root="2.16.840.1.638407.10.20.22.4.2" /> <id nullFlavor ="NA" /> <code codeSystem="local" code=" PTT" displayName="PARTIAL THROMBOPLASTIN TIME" /> &lt ;statusCode code="completed" /> <effectiveTime value=& quot;739074192175" /> <value unit="sec" xsi:type=& quot;PQ" value="28" /> <referenceRange> <observationRange> <text>25-37</text> </observationRange> </referenceRange> </ observation> </component> </organizer> </entry> & lt;entry> <organizer moodCode="EVN" classCode="BATTERY& quot;> <templateId root="2.16.840.1.312262.10.20.22.4.1" /&gt ; <id nullFlavor="NA" /> <code codeSystem=" local" code="METABC" displayName="METABOLIC PANEL, COMPREHN& quot; /> <statusCode code="completed" /> < component> <observation moodCode="EVN" classCode=" OBS"> <templateId root="2.16.840.1.021908.10..22.4.2& quot; /> <id nullFlavor="NA" /> <code codeSystem="local" code="K" displayName="POTASSIUM&quot ; /> <statusCode code="completed" /> < effectiveTime value="966920339030" /> <value unit=&quot ;mmol/L" xsi:type="PQ" value="4.6" /> < referenceRange> <observationRange> <text> 3.5-5.3</text> </observationRange> </ referenceRange> </observation> </component> < component> <observation moodCode="EVN" classCode=" OBS"> <templateId root="2.16.840.1.015524.10..22.4.2& quot; /> <id nullFlavor="NA" /><code codeSystem=& quot;local" code="eGFR" displayName="EST GFR (MDRD)" /& gt; <statusCode code="completed" /> < effectiveTime value="569714394072" /> <value unit=&quot ;mL/min" xsi:type="PQ" value="40" /> < interpretationCode codeSystem="local" code="*" /> <referenceRange> <observationRange> < text>> 59</text> </observationRange> & lt;/referenceRange> </observation> </component> <component> <observation moodCode="EVN" classCode=& quot;OBS"> <templateId root=" 2.16.840.1.358180.10.20.22.4.2" /> <id nullFlavor="NA& quot; /> <code codeSystem="local" code="GAP" displayName="ANION GAP" /> <statusCode code=" completed" /> <effectiveTime value="992996330571" /><value unit="mmol/L" xsi:type="PQ" value="10& quot; /> <referenceRange> <observationRange> <text>5-15</text> </observationRange> </referenceRange> </observation> </component> <component> <observation moodCode="EVN" classCode="OBS"> <templateId root=" 2.16.840.1.015186.10..22.4.2" /> <id nullFlavor="NA" /&gt ; <code codeSystem="local" code="GLU" displayName="GLUCOSE" /> <statusCode code=" completed" /> <effectiveTime value="085535088940" /> <value unit="mg/dL" xsi:type="PQ" value=& quot;175" /> <interpretationCode codeSystem="local&quot ; code="*" /> <referenceRange> < observationRange> <text>70-99</text> < /observationRange> </referenceRange> </observation& gt; </component> <component> <observation moodCode=& quot;EVN" classCode="OBS"> <templateId root=" 2.16.840.1.861285.10.20.22.4.2" /> <id nullFlavor="NA& quot; /> <code codeSystem="local" code="CA" displayName="CALCIUM" /> <statusCode code=" completed" /> <effectiveTime value="742000248841" /> <value unit="mg/dL" xsi:type="PQ" value=& quot;9.2" /> <referenceRange> < observationRange> <text>8.5-10.1</text> & lt;/observationRange> </referenceRange> </observation& gt; </component> <component> <observation moodCode="EVN" classCode="OBS"> <templateId root="2.16.840.1.037257.10.20.22.4.2" /> <id nullFlavor ="NA" /> <code codeSystem="local" code=" BUN" displayName="BLOOD UREA NITROGEN" /> <statusCode code= "completed" /> <effectiveTime value="532639751413& quot; /> <value unit="mg/dL" xsi:type="PQ" value="35" /> <interpretationCode codeSystem=" local" code="*" /> <referenceRange> <observationRange> <text>7-20</text> &lt ;/observationRange> </referenceRange> </observation& gt; </component> <component> <observation moodCode=& quot;EVN" classCode="OBS"> <templateId root=" 2.16.840.1.238203.10.20.22.4.2" /> <id nullFlavor="NA&quot ; /> <code codeSystem="local" code="CREAT" displayName="CREATININE" /> <statusCode code=" completed" /> <effectiveTime value="053236403211" /> <value unit="mg/dL" xsi:type="PQ" value=& quot;1.3" /> <interpretationCode codeSystem="local&quot ; code="*" /> <referenceRange> < observationRange> <text>0.6-1.0</text> & lt;/observationRange> </referenceRange> </ observation> </component> <component> < observation moodCode="EVN" classCode="OBS"> < templateId root="2.16.840.1.866546.10.20.22.4.2" /> < id nullFlavor="NA" /> <code codeSystem="local&quot ; code="NA" displayName="SODIUM" /> < statusCode code="completed" /> <effectiveTime value=& quot;041452293792" /> <value unit="mmol/L" xsi: type="PQ"value="138" /> <referenceRange> <observationRange> <text>135-148</text> </observationRange> </referenceRange> </ observation> </component> <component> < observation moodCode="EVN" classCode="OBS"> < templateId root="2.16.840.1.166330.10.20.22.4.2" /> < id nullFlavor="NA" /> <code codeSystem="local&quot ; code="CL" displayName="CHLORIDE" /><statusCode code= "completed" /> <effectiveTime value="819692371288& quot; /> <value unit="mmol/L" xsi:type="PQ" value="101" /> <referenceRange> < observationRange> <text>98-110</text> &lt ;/observationRange> </referenceRange> </observation& gt; </component> <component> <observation moodCode="EVN" classCode="OBS"> <templateId root="2.16.840.1.457281.10..22.4.2" /> <id nullFlavor ="NA" /> <code codeSystem="local" code=" AST" displayName="AST/SGOT" /> <statusCode code=& quot;completed" /> <effectiveTime value="075849479471& quot; /> <value unit="Units/L" xsi:type="PQ" value="14" /> <referenceRange> < observationRange> <text>10-37</text> </ observationRange> </referenceRange> </observation&gt ; </component> <component> <observation moodCode ="EVN" classCode="OBS"> <templateId root=& quot;2.16.840.1.642721.10..22.4.2" /><id nullFlavor="NA" /> <code codeSystem="local" code="ALT" displayName="ALT/SGPT" /> <statusCode code=" completed" /> <effectiveTime value="288147913847" /> <value unit="Units/L" xsi:type="PQ" value= "29" /> <referenceRange> <observationRange> <text>< 66</text> </ observationRange> </referenceRange> </observation&gt ; </component> <component> <observation moodCode=& quot;EVN" classCode="OBS"> <templateId root=" 2.16.840.1.602280.10.20.22.4.2" /> <id nullFlavor="NA& quot; /> <code codeSystem="local" code="CO2" displayName="CARBON DIOXIDE" /> <statusCode code=" completed" /> <effectiveTime value="947707260475" /> <value unit="mmol/L" xsi:type="PQ" value=& quot;27" /> <referenceRange> < observationRange> <text>21-32</text> < /observationRange> </referenceRange> </observation> </component> <component> <observation moodCode=" EVN" classCode="OBS"> <templateId root=" 2.16.840.1.801254.10.20.22.4.2" /> <id nullFlavor="NA& quot; /> <code codeSystem="local" code="TP" displayName="TOTAL PROTEIN" /> <statusCode code=" completed" /> <effectiveTime value="506645616995" /> <value unit="gm/dL" xsi:type="PQ" value=& quot;7.5" /> <referenceRange> < observationRange> <text>6.4-8.2</text> </ observationRange> </referenceRange> </observation&gt ; </component> <component> <observation moodCode ="EVN" classCode="OBS"> <templateId root=& quot;2.16.840.1.692791.10.20.22.4.2" /> <id nullFlavor=&quot ;NA" /> <code codeSystem="local" code="ALB& quot; displayName="ALBUMIN" /> <statusCode code=" completed" /> <effectiveTime value="099478374975" /> <value unit="gm/dL" xsi:type="PQ" value=& quot;3.4" /> <referenceRange> < observationRange> <text>3.4-5.0</text> & lt;/observationRange> </referenceRange> </ observation> </component> <component> < observation moodCode="EVN" classCode="OBS"> < templateId root="2.16.840.1.087158.10.20.22.4.2" /> < id nullFlavor="NA" /> <code codeSystem="local&quot ; code="BILTOT" displayName="BILI TOTAL" /> < statusCode code="completed" /> <effectiveTime value=& quot;179914713614" /> <value unit="mg/dL" xsi:type ="PQ" value="0.3" /> <referenceRange> <observationRange> <text>0.0-1.0</text> </observationRange> </referenceRange> </ observation> </component> <component> < observation moodCode="EVN" classCode="OBS"> < templateId root="2.16.840.1.878300.10.20.22.4.2" /> <id nullFlavor="NA" /> <code codeSystem="local" code="ALKP" displayName="ALKALINE PHOSPHATASE TOTAL" /> <statusCode code="completed" /> < effectiveTime value="927444369646" /> <value unit=&quot ;IU/L" xsi:type="PQ" value="46" /> < referenceRange> <observationRange> <text> 45-117</text></observationRange> </referenceRange> </observation> </component> </organizer> </ entry> <entry> <organizer moodCode="EVN" classCode=& quot;BATTERY"> <templateId root=" 2.16.840.1.952751.10.20.22.4.1" /> <id nullFlavor="NA&quot ; /> <code codeSystem="local" code="MAG" displayName="MAGNESIUM" /> <statusCode code="completed " /> <component> <observation moodCode="EVN& quot; classCode="OBS"> <templateId root=" 2.16.840.1.301305.10.20.22.4.2" /> <id nullFlavor="NA& quot; /> <code codeSystem="local" code="MAG" displayName="MAGNESIUM" /> <statusCode code=" completed" /> <effectiveTime value="945576965197" /& gt; <value unit="mg/dL" xsi:type="PQ" value=& quot;2.0" /> <referenceRange> < observationRange> <text>1.8-2.4</text> & lt;/observationRange> </referenceRange> </ observation> </component> </organizer> </entry> & lt;entry> <organizer moodCode="EVN" classCode="BATTERY& quot;> <templateId root="2.16.840.1.581145.10.20.22.4.1" /& gt; <id nullFlavor="NA" /> <code codeSystem=" local" code="TSH" displayName="THYROID STIM HORMONE (TSH)& quot; /> <statusCode code="completed" /> < component> <observation moodCode="EVN" classCode=" OBS"> <templateId root="2.16.840.1.485779.10.20.22.4.2& quot; /> <id nullFlavor="NA" /> <code codeSystem="local" code="TSH" displayName="THYROID STIM HORMONE (TSH)" /> <statusCode code="completed&quot ; /> <effectiveTime value="304379677089" /> <value unit="uIU/mL" xsi:type="PQ" value="0.42& quot; /> <referenceRange> <observationRange> <text>0.34-4.82</text> </observationRange > </referenceRange> </observation> </ component> </organizer> </entry> <entry> < organizer moodCode="EVN" classCode="BATTERY"> < templateId root="2.16.840.1.083648.10.20.22.4.1" /> <id nullFlavor="NA" /> <code codeSystem="local" code= "GHGLUMON" displayName="GLUCOSE (POC)" /> < statusCode code="completed" /> <component> < observation moodCode="EVN" classCode="OBS"> < templateId root="2.16.840.1.574572.10.20.22.4.2" /> < id nullFlavor="NA" /> <code codeSystem="local&quot ; code="GHGLUMON" displayName="GLUCOSE (POC)" /> <statusCode code="completed" /> <effectiveTime value="118966114641" /> <value unit="mg/dL" xsi:type="PQ" value="246" /> < interpretationCode codeSystem="local" code="*" /> <referenceRange> <observationRange> < text>70-99</text> </observationRange> </ referenceRange> </observation> </component> </ organizer> </entry> <entry> <organizer moodCode="EVN " classCode="BATTERY"> <templateId root=" 2.16.840.1.799317.10.20.22.4.1" /> <id nullFlavor="NA&quot ; /> <code codeSystem="local" code="GHGLUMON" displayName="GLUCOSE (POC)" /> <statusCode code=" completed" /> <component> <observation moodCode=& quot;EVN" classCode="OBS"> <templateId root=" 2.16.840.1.559597.10.20.22.4.2" /> <id nullFlavor="NA& quot; /> <code codeSystem="local" code="GHGLUMON& quot; displayName="GLUCOSE (POC)" /> <statusCode code=& quot;completed" /> <effectiveTime value="154766055281& quot; /> <value unit="mg/dL" xsi:type="PQ" value="222" /> <interpretationCode codeSystem=" local" code="*" /> <referenceRange> <observationRange> <text>70-99</text> &lt ;/observationRange> </referenceRange> </observation& gt; </component> </organizer> </entry> <entry> <organizer moodCode="EVN" classCode="BATTERY"> <templateId root="2.16.840.1.479140.10.20.22.4.1" /> &lt ;id nullFlavor="NA" /> <code codeSystem="local" code="GHGLUMON" displayName="GLUCOSE (POC)" /> < statusCode code="completed" /> <component> < observation moodCode="EVN" classCode="OBS"> < templateId root="2.16.840.1.783859.10.20.22.4.2" /> < id nullFlavor="NA" /> <code codeSystem="local" code="GHGLUMON" displayName="GLUCOSE (POC)" /> & lt;statusCode code="completed" /> <effectiveTime value= "287231263586" /> <value unit="mg/dL" xsi: type="PQ" value="143" /> <interpretationCode codeSystem="local" code="*" /> < referenceRange> <observationRange> <text> 70-99</text> </observationRange> </ referenceRange> </observation> </component> </ organizer> </entry> <entry> <organizer moodCode="EVN " classCode="BATTERY"> <templateId root=" 2.16.840.1.431198.10.20.22.4.1" /> <id nullFlavor="NA&quot ; /> <codecodeSystem="local" code="PT" displayName="PROTHROMBIN TIME WITH INR" /> <statusCode code ="completed" /> <component> <observation moodCode="EVN" classCode="OBS"> <templateId root="2.16.840.1.382902.10.20.22.4.2" /> <id nullFlavor ="NA" /> <code codeSystem="local" code=" INRX" displayName="INTERNATIONAL NORMAL RATIO"/> < statusCode code="completed" /> <effectiveTime value=& quot;966305158671" /> <value unit="" xsi:type=& quot;PQ" value="1.1" /> <referenceRange> <observationRange> <text>0.9-1.1</text> </observationRange> </referenceRange> </ observation> </component> <component> < observation moodCode="EVN" classCode="OBS"> < templateId root="2.16.840.1.825841.10.20.22.4.2" /> < id nullFlavor="NA" /> <code codeSystem="local&quot ; code="PTPAT" displayName="PROTHROMBIN TIME" /> <statusCode code="completed" /> <effectiveTime value="412373597763" /> <value unit="sec" xsi :type="PQ" value="13.0" /> < interpretationCode codeSystem="local" code="*" /> <referenceRange> <observationRange> < text>10.0-12.8</text> </observationRange> < /referenceRange> </observation> </component> </ organizer> </entry> <entry> <organizer moodCode="EVN " classCode="BATTERY"> <templateId root=" 2.16.840.1.677719.10.20.22.4.1" /> <id nullFlavor="NA&quot ; /> <code codeSystem="local" code="METABC" displayName="METABOLIC PANEL, COMPREHN" /> <statusCode code ="completed" /> <component> <observation moodCode="EVN" classCode="OBS"> <templateId root="2.16.840.1.364854.10.20.22.4.2" /> <id nullFlavor ="NA" /> <code codeSystem="local" code=" K" displayName="POTASSIUM" /> <statusCode code=& quot;completed" /> <effectiveTime value="653710911372& quot; /> <value unit="mmol/L" xsi:type="PQ" value="4.4" /> <referenceRange> < observationRange> <text>3.5-5.3</text> </ observationRange> </referenceRange> </observation&gt ; </component> <component> <observation moodCode ="EVN" classCode="OBS"> <templateId root=& quot;2.16.840.1.852856.10.20.22.4.2" /> <id nullFlavor="NA& quot; /> <code codeSystem="local" code="eGFR&quot ; displayName="EST GFR (MDRD)" /> <statusCode code=& quot;completed" /> <effectiveTime value="906555383280& quot; /> <value unit="mL/min" xsi:type="PQ" value="40" /> <interpretationCode codeSystem=" local" code="*" /> <referenceRange> <observationRange> <text>> 59</text> </observationRange> </referenceRange> </ observation> </component> <component> < observation moodCode="EVN" classCode="OBS"> < templateId root="2.16.840.1.719640.10..22.4.2" /> < id nullFlavor="NA" /> <code codeSystem="local&quot ; code="GAP" displayName="ANION GAP" /> < statusCode code="completed" /> <effectiveTime value=& quot;871393831777" /> <value unit="mmol/L" xsi: type="PQ" value="9" /> <referenceRange> <observationRange> <text>5-15</text> </observationRange> </referenceRange> < /observation> </component> <component> < observation moodCode="EVN" classCode="OBS"> < templateId root="2.16.840.1.375532.10.20.22.4.2" /> < id nullFlavor="NA" /> <code codeSystem="local&quot ; code="eCrCl" displayName="EST CrCl (CG)" /> & lt;statusCode code="completed" /> <effectiveTime value= "813985472344" /> <value unit="mL/min" xsi: type="PQ" value="55" /> <interpretationCode codeSystem="local" code="*" /> <referenceRange > <observationRange> <text>> 59&lt ;/text> </observationRange> </referenceRange&gt ; </observation> </component> <component> <observation moodCode="EVN" classCode="OBS"> <templateId root="2.16.840.1.968930.10.20.22.4.2" /> <id nullFlavor="NA" /> <code codeSystem=" local" code="GLU" displayName="GLUCOSE" /> <statusCode code="completed" /> <effectiveTime value ="769682254680" /> <value unit="mg/dL" xsi: type="PQ" value="103" /> <interpretationCode codeSystem="local" code="*" /> < referenceRange> <observationRange> <text>70- 99</text> </observationRange> </ referenceRange> </observation> </component> < component> <observation moodCode="EVN" classCode=" OBS"> <templateId root="2.16.840.1.199534.10.20.22.4.2&quot ; /> <id nullFlavor="NA" /> <code codeSystem="local" code="CA" displayName="CALCIUM&quot ; /> <statusCode code="completed" /> < effectiveTime value="371452963356" /> <value unit=&quot ;mg/dL" xsi:type="PQ" value="9.2" /> < referenceRange> <observationRange> <text> 8.5-10.1</text> </observationRange> </ referenceRange> </observation> </component> < component> <observation moodCode="EVN" classCode="OBS& quot;> <templateId root="2.16.840.1.934445.10.20.22.4.2&quot ; /> <id nullFlavor="NA" /> <code codeSystem="local" code="BUN" displayName="BLOOD UREA NITROGEN" /> <statusCode code="completed" /> <effectiveTime value="540119784149" /> < value unit="mg/dL" xsi:type="PQ"value="39" /> <interpretationCode codeSystem="local" code="*" /> <referenceRange> <observationRange> <text>7-20</text> </observationRange> </referenceRange> </observation> </component&gt ; <component> <observation moodCode="EVN" classCode="OBS"> <templateId root=" 2.16.840.1.331474.10.20.22.4.2" /> <id nullFlavor="NA& quot; /> <code codeSystem="local" code="CREAT&quot ; displayName="CREATININE" /> <statusCode code=" completed" /> <effectiveTime value="919835963091" /> <value unit="mg/dL" xsi:type="PQ" value=" 1.3" /> <interpretationCode codeSystem="local" code="*" /> <referenceRange> < observationRange> <text>0.6-1.0</text> & lt;/observationRange> </referenceRange> </ observation> </component> <component> < observation moodCode="EVN" classCode="OBS"> < templateId root="2.16.840.1.206141.10..22.4.2" /> < id nullFlavor="NA" /> <code codeSystem="local&quot ; code="NA"displayName="SODIUM" /> < statusCode code="completed" /> <effectiveTime value=" 852187844771" /> <value unit="mmol/L" xsi:type=& quot;PQ" value="139" /> <referenceRange> <observationRange> <text>135-148</text> </observationRange> </referenceRange> </ observation> </component> <component> < observation moodCode="EVN" classCode="OBS"> < templateId root="2.16.840.1.140265.10.20.22.4.2" /> < id nullFlavor="NA" /> <code codeSystem="local&quot ; code="CL" displayName="CHLORIDE" /> < statusCode code="completed" /> <effectiveTime value=& quot;140874974849" /> <value unit="mmol/L" xsi: type="PQ"value="102" /> <referenceRange> <observationRange> <text>98-110</text> </observationRange> </referenceRange> </ observation> </component> <component> < observation moodCode="EVN" classCode="OBS"> < templateId root="2.16.840.1.795535.10.20.22.4.2" /> < id nullFlavor="NA" /> <code codeSystem="local&quot ; code="AST" displayName="AST/SGOT" /><statusCode code ="completed" /> <effectiveTime value="289659346040 " /> <value unit="Units/L" xsi:type="PQ&quot ; value="13" /> <referenceRange> < observationRange> <text>10-37</text> < /observationRange> </referenceRange> </observation& gt; </component> <component> <observation moodCode="EVN" classCode="OBS"> <templateId root="2.16.840.1.890347.10..22.4.2" /> <id nullFlavor ="NA" /> <code codeSystem="local" code=" ALT" displayName="ALT/SGPT" /> <statusCode code=& quot;completed" /> <effectiveTime value="146204819121& quot; /> <value unit="Units/L" xsi:type="PQ" value="26" /> <referenceRange> < observationRange> <text>< 66</text> & lt;/observationRange> </referenceRange> </ observation></component> <component> <observation moodCode="EVN" classCode="OBS"> <templateId root="2.16.840.1.817135.10..22.4.2" /> <id nullFlavor=& quot;NA" /> <code codeSystem="local" code=" CO2" displayName="CARBON DIOXIDE" /> <statusCode code="completed" /> <effectiveTime value=" 557728580789" /> <value unit="mmol/L" xsi:type=& quot;PQ" value="28" /> <referenceRange> <observationRange> <text>21-32</text> </observationRange> </referenceRange> </ observation> </component> <component> < observation moodCode="EVN" classCode="OBS"> < templateId root="2.16.840.1.130045.10.20.22.4.2" /> < id nullFlavor="NA" /> <code codeSystem="local&quot ; code="TP" displayName="TOTAL PROTEIN" /> < statusCode code="completed" /><effectiveTime value=" 843175126692" /> <value unit="gm/dL" xsi:type=& quot;PQ" value="6.9" /> <referenceRange> <observationRange> <text>6.4-8.2</text> </observationRange> </referenceRange> </ observation> </component> <component> < observation moodCode="EVN" classCode="OBS"> < templateId root="2.16.840.1.937720.10.20.22.4.2" /> < id nullFlavor="NA"/> <code codeSystem="local&quot ; code="ALB" displayName="ALBUMIN" /> < statusCode code="completed" /> <effectiveTime value=& quot;690226115634" /> <value unit="gm/dL" xsi:type ="PQ" value="3.1" /> <interpretationCode codeSystem="local" code="*" /> < referenceRange> <observationRange> <text> 3.4-5.0</text> </observationRange> </ referenceRange> </observation> </component> < component> <observation moodCode="EVN" classCode=" OBS"> <templateId root="2.16.840.1.591351.10.20.22.4.2& quot; /> <id nullFlavor="NA" /> <code codeSystem="local" code="BILTOT" displayName="BILI TOTAL" /> <statusCode code="completed" /> <effectiveTime value="369585416715" /> <value unit ="mg/dL" xsi:type="PQ" value="0.4" />< referenceRange> <observationRange> <text> 0.0-1.0</text> </observationRange> </ referenceRange> </observation> </component> < component> <observation moodCode="EVN" classCode=" OBS"> <templateId root="2.16.840.1.953999.10.20.22.4.2& quot; /> <id nullFlavor="NA" /> <code codeSystem="local" code="ALKP" displayName="ALKALINE PHOSPHATASE TOTAL" /> <statusCode code="completed&quot ; /> <effectiveTime value="363656745916" /> < value unit="IU/L" xsi:type="PQ" value="42" /> <interpretationCode codeSystem="local" code="*" /> <referenceRange> <observationRange> <text>45-117</text> </observationRange> </referenceRange> </observation> </component& gt; </organizer> </entry> <entry> <organizer moodCode="EVN" classCode="BATTERY"> <templateId root="[id number]" /> <id nullFlavor=& quot;NA" /> <code codeSystem="local" code="MAG& quot; displayName="MAGNESIUM" /> <statusCode code=" completed" /> <component> <observation moodCode=& quot;EVN" classCode="OBS"> <templateId root=" [id number]" /> <id nullFlavor="NA& quot; /> <code codeSystem="local" code="MAG" displayName="MAGNESIUM" /> <statusCode code=" completed" /><effectiveTime value="[id number]" /> <value unit="mg/dL" xsi:type="PQ" value="2.1& quot; /> <referenceRange> <observationRange> <text>1.8-2.4</text> </observationRange& gt; </referenceRange> </observation> </component > </organizer> </entry> <entry> <organizer moodCode="EVN" classCode="BATTERY"> <templateId root="2.16.840.1.561814.10.20.22.4.1" /> <id nullFlavor=& quot;NA" /> <code codeSystem="local" code="CBCD& quot; displayName="CBC W/DIFF" /> <statusCode code=" completed" /> <component> <observation moodCode=& quot;EVN" classCode="OBS"> <templateId root=" 2.16.840.1.080359.10.20.22.4.2" /> <id nullFlavor="NA& quot; /> <code codeSystem="local" code="EO#" displayName="EOSINOPHIL #" /> <statusCode code=" completed" /> <effectiveTime value="740191603731" /> <value unit="k/cumm" xsi:type="PQ" value=& quot;0.1" /> <referenceRange> < observationRange> <text>0.1-0.5</text> < /observationRange> </referenceRange> </observation& gt; </component> <component> <observation moodCode="EVN" classCode="OBS"> <templateId root="2.16.840.1.426409.10.20.22.4.2" /> <id nullFlavor ="NA" /> <code codeSystem="local" code=" EO%" displayName="EOSINOPHIL %" /> & lt;statusCode code="completed" /> <effectiveTime value= "227594796028" /> <value unit="%" xsi :type="PQ" value="1" /> <interpretationCode codeSystem="local" code="*" /> < referenceRange> <observationRange> <text> 2-4</text> </observationRange> </ referenceRange> </observation> </component> < component> <observation moodCode="EVN" classCode=" OBS"> <templateId root="2.16.840.1.548200.10.20.22.4.2& quot; /> <id nullFlavor="NA" /> <code codeSystem="local" code="GR#" displayName="GRANULOCYTE #" /> <statusCode code="completed" /> <effectiveTime value="443081656386" /> <value unit=& quot;k/cumm" xsi:type="PQ" value="9.0" /> < referenceRange> <observationRange> <text> 2.0-9.0</text> </observationRange> </ referenceRange> </observation> </component> < component> <observation moodCode="EVN" classCode=" OBS"> <templateId root="2.16.840.1.359749.10.20.22.4.2& quot;/> <id nullFlavor="NA" /> <code codeSystem="local"code="GR%" displayName=" GRANULOCYTE %" /> <statusCode code="completed& quot; /> <effectiveTime value="712462937873" /> <value unit="%" xsi:type="PQ" value="72 " /> <referenceRange> <observationRange> <text>50-75</text> </observationRange> </referenceRange> </observation> </component& gt; <component> <observation moodCode="EVN" classCode="OBS"> <templateId root=" 2.16.840.1.348180.10.20.22.4.2" /> <id nullFlavor="NA& quot; /> <code codeSystem="local" code="LY#" displayName="LYMPHOCYTE #" /> <statusCode code=" completed" /> <effectiveTime value="631189872581" /> <value unit="k/cumm" xsi:type="PQ" value=& quot;2.2" /> <referenceRange> < observationRange> <text>1.0-4.0</text></ observationRange> </referenceRange> </observation&gt ; </component> <component> <observation moodCode ="EVN" classCode="OBS"> <templateId root=& quot;2.16.840.1.214929.10.20.22.4.2" /> <id nullFlavor=&quot ;NA" /> <code codeSystem="local" code="LY&amp ;#37;" displayName="LYMPHOCYTE %" /> < statusCode code="completed" /> <effectiveTime value=& quot;292522453767" /> <value unit="%" xsi: type="PQ" value="18" /> <interpretationCode codeSystem="local" code="*" /> < referenceRange> <observationRange> <text>20-30&lt ;/text> </observationRange> </referenceRange&gt ; </observation> </component> <component> <observation moodCode="EVN" classCode="OBS"> &lt ;templateId root="2.16.840.1.759886.10.20.22.4.2" /> < id nullFlavor="NA" /> <code codeSystem="local&quot ; code="MCH" displayName="MEAN CELL HGB" /> < statusCode code="completed" /> <effectiveTime value=& quot;467668614455" /> <value unit="pg" xsi:type=& quot;PQ" value="28.0" /> <referenceRange> <observationRange> <text>27.0-33.0</text> </observationRange></referenceRange> </ observation> </component> <component> < observation moodCode="EVN" classCode="OBS"> < templateId root="2.16.840.1.571448.10.20.22.4.2" /> < id nullFlavor="NA" /> <code codeSystem="local&quot ; code="MCHC" displayName="MEAN CELL HGBCONCENTRATION" /&gt ; <statusCode code="completed" /> < effectiveTime value="086141224263" /> <value unit=&quot ;g/dL" xsi:type="PQ" value="30.8" /> < interpretationCode codeSystem="local" code="*" /> <referenceRange> <observationRange> <text> 32.0-37.0</text> </observationRange> </ referenceRange> </observation> </component> < component> <observation moodCode="EVN" classCode=" OBS"> <templateId root="2.16.840.1.821389.10.20.22.4.2& quot; /> <id nullFlavor="NA" /> <code codeSystem="local" code="MCV" displayName="MEAN CELL VOLUME" /> <statusCode code="completed" /> <effectiveTime value="849994740460" /> <value unit="fl" xsi:type="PQ" value="91.0" /> <referenceRange> <observationRange> < text>80.0-100.0</text> </observationRange> & lt;/referenceRange> </observation> </component> < component> <observation moodCode="EVN" classCode=" OBS"> <templateId root="2.16.840.1.606383.10.20.22.4.2& quot; /> <id nullFlavor="NA" /> <code codeSystem="local" code="MO#" displayName="MONOCYTE #& quot; /> <statusCode code="completed" /> & lt;effectiveTime value="976925052597" /> <value unit=&quot ;k/cumm" xsi:type="PQ" value="1.2" /> < interpretationCode codeSystem="local" code="*" /> <referenceRange> <observationRange> < text>0.1-1.0</text> </observationRange> </ referenceRange> </observation> </component> < component> <observation moodCode="EVN" classCode=" OBS"> <templateId root="2.16.840.1.250366.10.20.22.4.2& quot; /> <id nullFlavor="NA" /> <code codeSystem="local" code="MO%" displayName=" MONOCYTE %" /> <statusCode code="completed&quot ; /> <effectiveTime value="583902300391" /> <value unit="%" xsi:type="PQ" value="9& quot; /> <interpretationCode codeSystem="local" code=& quot;*" /> <referenceRange> <observationRange> <text>4-6</text> </observationRange> </referenceRange> </observation> </component& gt; <component> <observation moodCode="EVN" classCode="OBS"> <templateId root=" 2.16.840.1.415298.10.20.22.4.2" /> <id nullFlavor="NA& quot; /> <code codeSystem="local" code="RBC" displayName="RED BLOOD CELL" /> <statusCode code=" completed" /> <effectiveTime value="467291107988" /> <value unit="m/cumm" xsi:type="PQ" value=& quot;3.57" /> <interpretationCode codeSystem="local& quot; code="*" /> <referenceRange> < observationRange> <text>4.00-6.00</text> </ observationRange> </referenceRange> </observation&gt ; </component> <component> <observation moodCode ="EVN" classCode="OBS"> <templateId root=& quot;2.16.840.1.210311.10.20.22.4.2" /> <id nullFlavor=&quot ;NA" /> <code codeSystem="local" code="RDW& quot; displayName="RED CELL DISTRIBUTION WIDTH" /> < statusCode code="completed" /> <effectiveTime value=& quot;366071131891" /> <value unit="%" xsi: type="PQ"value="16.2" /> <interpretationCode codeSystem="local" code="*" /> < referenceRange> <observationRange> <text> 11.0-15.6</text> </observationRange> </ referenceRange> </observation> </component> < component> <observation moodCode="EVN" classCode=" OBS"> <templateId root="2.16.840.1.302781.10.20.22.4.2& quot; /> <id nullFlavor="NA" /> <code codeSystem="local" code="WBC" displayName="WHITE BLOOD CELL" /> <statusCode code="completed" /> <effectiveTime value="984609519921" /> <value unit="k/cumm" xsi:type="PQ" value="12.5" /> <interpretationCode codeSystem="local" code="*" /& gt; <referenceRange> <observationRange> <text>5.0-10.0</text> </observationRange> </referenceRange> </observation> </component&gt ; <component> <observation moodCode="EVN" classCode="OBS"> <templateId root=" 2.16.840.1.861076.10.20.22.4.2" /> <id nullFlavor="NA& quot; /> <code codeSystem="local" code="HGBT&quot ; displayName="HEMOGLOBIN" /> <statusCode code=" completed" /> <effectiveTime value="695135950522" /> <value unit="gm/dL" xsi:type="PQ" value=& quot;10.0" /> <interpretationCode codeSystem="local& quot; code="*" /> <referenceRange> < observationRange> <text>12.0-16.0</text> </observationRange> </referenceRange> </ observation> </component> <component> < observation moodCode="EVN" classCode="OBS">< templateId root="2.16.840.1.455702.10.20.22.4.2" /> < id nullFlavor="NA" /> <code codeSystem="local&quot ; code="HCTT" displayName="HEMATOCRIT" /> < statusCode code="completed" /> <effectiveTime value=& quot;682341182616" /> <value unit="%" xsi: type="PQ" value="32.5" /> < interpretationCode codeSystem="local" code="*" /> <referenceRange> <observationRange> <text&gt ;37.0-47.0</text> </observationRange> </ referenceRange> </observation> </component> < component> <observation moodCode="EVN" classCode=" OBS"> <templateId root="2.16.840.1.934797.10.20.22.4.2& quot; /> <id nullFlavor="NA" /> <code codeSystem="local" code="PLTT" displayName="PLATELET COUNT" /> <statusCode code="completed" /> <effectiveTime value="442690917367" /> <value unit="k/cumm" xsi:type="PQ" value="307" /> <referenceRange> <observationRange> & lt;text>150-450</text> </observationRange> & lt;/referenceRange> </observation> </component> </ organizer> </entry> <entry> <organizer moodCode="EVN " classCode="BATTERY"> <templateId root=" 2.16.840.1.422625.10.20.22.4.1" /> <id nullFlavor="NA&quot ; /> <code codeSystem="local" code="GHGLUMON" displayName="GLUCOSE (POC)" /> <statusCode code=" completed" /> <component> <observation moodCode=& quot;EVN" classCode="OBS"> <templateId root=" 2.16.840.1.648012.10.20.22.4.2" /> <id nullFlavor="NA& quot; /> <codecodeSystem="local" code="GHGLUMON& quot; displayName="GLUCOSE (POC)" /> <statusCode code=& quot;completed" /> <effectiveTime value="821063581954& quot; /> <value unit="mg/dL" xsi:type="PQ" value="110" /> <interpretationCode codeSystem=" local" code="*" /> <referenceRange> < observationRange> <text>70-99</text> < /observationRange> </referenceRange> </observation& gt; </component> </organizer> </entry> <entry&gt ; <organizer moodCode="EVN" classCode="BATTERY"> <templateId root="2.16.840.1.281386.10.20.22.4.1" /> & lt;id nullFlavor="NA" /> <code codeSystem="local&quot ; code="GHGLUMON" displayName="GLUCOSE (POC)" /> &lt ;statusCode code="completed" /> <component> < observation moodCode="EVN" classCode="OBS"> < templateId root="2.16.840.1.101808.10.20.22.4.2" /> < id nullFlavor="NA" /> <code codeSystem="local&quot ; code="GHGLUMON" displayName="GLUCOSE (POC)" /> <statusCode code="completed" /> <effectiveTime value="420031416908" /> <value unit="mg/dL" xsi: type="PQ" value="143" /> <interpretationCode codeSystem="local" code="*" /> < referenceRange> <observationRange> <text> 70-99</text> </observationRange> </ referenceRange> </observation> </component> </ organizer> </entry> <entry> <organizer moodCode="EVN " classCode="BATTERY"> <templateId root=" 2.16.840.1.977067.10.20.22.4.1" /> <id nullFlavor="NA&quot ; /> <code codeSystem="local" code="BNP" displayName="B-TYPE NATRIURETIC PEPTIDE" /> <statusCode code="completed" /> <component> <observation moodCode="EVN" classCode="OBS"> <templateId root="2.16.840.1.502341.10.20.22.4.2" /> <id nullFlavor ="NA" /> <code codeSystem="local" code=" BNP" displayName="B-TYPE NATRIURETIC PEPTIDE" /> < statusCode code="completed" /> <effectiveTime value=& quot;003244311205" /> <value unit="pg/mL" xsi:type="PQ " value="27" /> <referenceRange> &lt ;observationRange> <text>< 100</text> </observationRange> </referenceRange> </ observation> </component> </organizer> </entry> &lt ;entry> <organizer moodCode="EVN" classCode="BATTERY& quot;> <templateId root="2.16.840.1.041099.10.20.22.4.1" /& gt; <id nullFlavor="NA" /> <code codeSystem=" local" code="CBC" displayName="CBC" /> < statusCode code="completed" /> <component> < observation moodCode="EVN" classCode="OBS"> < templateId root="2.16.840.1.000170.10.20.22.4.2" /> <id nullFlavor="NA" /> <code codeSystem="local" code="MCH" displayName="MEAN CELL HGB" /> < statusCode code="completed" /> <effectiveTime value=& quot;638524291648" /> <value unit="pg" xsi:type=& quot;PQ" value="28.2" /> <referenceRange> <observationRange> <text>27.0-33.0</text> </observationRange> </referenceRange> </ observation> </component> <component> < observation moodCode="EVN" classCode="OBS"> < templateId root="2.16.840.1.708919.10.20.22.4.2" /> < id nullFlavor="NA" /> <code codeSystem="local&quot ; code="MCHC" displayName="MEAN CELL HGB CONCENTRATION" /&gt ; <statusCode code="completed"/> < effectiveTime value="542353193392" /> <value unit=&quot ;g/dL" xsi:type="PQ" value="31.8" /> < interpretationCode codeSystem="local" code="*" /> <referenceRange> <observationRange> < text>32.0-37.0</text> </observationRange> </ referenceRange> </observation> </component> < component> <observation moodCode="EVN" classCode=" OBS"> <templateId root="2.16.840.1.563264.10.20.22.4.2& quot; /> <id nullFlavor="NA" /> <code codeSystem="local" code="MCV" displayName="MEAN CELL VOLUME" /> <statusCode code="completed" /> <effectiveTime value="834954927876" /> <value unit="fl" xsi:type="PQ" value="88.4" /> <referenceRange> <observationRange> < text>80.0-100.0</text> </observationRange> & lt;/referenceRange> </observation> </component> <component> <observation moodCode="EVN" classCode=& quot;OBS"> <templateId root=" 2.16.840.1.076157.10.20.22.4.2" /> <id nullFlavor="NA& quot; /> <code codeSystem="local" code="RBC" displayName="RED BLOOD CELL"/> <statusCode code=" completed" /> <effectiveTime value="030037980202" /> <value unit="m/cumm" xsi:type="PQ" value=& quot;3.80" /> <interpretationCode codeSystem="local& quot; code="*"/> <referenceRange> < observationRange> <text>4.00-6.00</text> </observationRange> </referenceRange> </ observation> </component> <component> < observation moodCode="EVN" classCode="OBS"> < templateId root="2.16.840.1.225902.10.20.22.4.2" /> < id nullFlavor="NA" /> <code codeSystem="local&quot ; code="RDW" displayName="RED CELL DISTRIBUTION WIDTH" /> <statusCode code="completed" /> <effectiveTime value ="306399462885" /> <value unit="%" xsi:type="PQ" value="16.3" /> < interpretationCode codeSystem="local" code="*" /> < referenceRange> <observationRange> <text> 11.0-15.6</text> </observationRange> </ referenceRange> </observation> </component> < component> <observation moodCode="EVN"classCode="OBS "> <templateId root="2.16.840.1.249532.10.20.22.4.2& quot; /> <id nullFlavor="NA" /> <code codeSystem="local" code="WBC" displayName="WHITE BLOOD CELL" /> <statusCode code="completed" /> <effectiveTime value="256857964756" /> <value unit="k/cumm" xsi:type="PQ" value="10.4" /> <interpretationCode codeSystem="local" code="*" /& gt; <referenceRange> <observationRange> <text>5.0-10.0</text> </observationRange> </referenceRange> </observation> </component&gt ; <component> <observation moodCode="EVN" classCode="OBS"> <templateId root=" 2.16.840.1.705708.10.20.22.4.2" /> <id nullFlavor="NA& quot; /> <code codeSystem="local" code="HGBT&quot ; displayName="HEMOGLOBIN" /> <statusCode code=" completed" /> <effectiveTime value="395800312131" /> <value unit="gm/dL" xsi:type="PQ" value=" 10.7" /> <interpretationCode codeSystem="local" code="*" /> <referenceRange> < observationRange> <text>12.0-16.0</text> </observationRange> </referenceRange> </ observation> </component> <component> <observation moodCode="EVN" classCode="OBS"> <templateId root="2.16.840.1.130613.10..22.4.2" /> <id nullFlavor ="NA" /> <code codeSystem="local" code="HCTT& quot; displayName="HEMATOCRIT" /> <statusCode code=& quot;completed" /> <effectiveTime value="946849066173& quot; /> <value unit="%" xsi:type="PQ&quot ; value="33.6" /> <interpretationCode codeSystem=" local" code="*" /> <referenceRange> <observationRange> <text>37.0-47.0</text> </observationRange> </referenceRange> </ observation> </component> <component> < observation moodCode="EVN" classCode="OBS"> < templateId root="2.16.840.1.918800.10..22.4.2" /> < id nullFlavor="NA" /> <code codeSystem="local&quot ; code="PLTT" displayName="PLATELET COUNT" /> & lt;statusCode code="completed" /> <effectiveTime value= "290355103704" /> <value unit="k/cumm" xsi: type="PQ" value="293" /> <referenceRange> <observationRange> <text>150-450</text> </observationRange> </referenceRange> </ observation> </component> </organizer> </entry> & lt;entry> <organizer moodCode="EVN" classCode="BATTERY& quot;> <templateId root="2.16.840.1.237756.10.20.22.4.1" /& gt; <id nullFlavor="NA" /> <code codeSystem=" local" code="PT" displayName="PROTHROMBIN TIME WITH INR&quot ; /> <statusCode code="completed" /> <component& gt; <observation moodCode="EVN" classCode="OBS"&gt ; <templateId root="2.16.840.1.091540.10.20.22.4.2" /> <id nullFlavor="NA" /> <code codeSystem=& quot;local" code="INRX" displayName="INTERNATIONAL NORMAL RATIO" /> <statusCode code="completed" /> < effectiveTime value="653663874240" /> <value unit=&quot ;" xsi:type="PQ" value="1.2" /> < interpretationCode codeSystem="local" code="*" /> <referenceRange> <observationRange> < text>0.9-1.1</text> </observationRange> </ referenceRange> </observation> </component> < component> <observation moodCode="EVN" classCode=" OBS"> <templateId root="2.16.840.1.445917.10.20.22.4.2& quot; /> <id nullFlavor="NA" /> <code codeSystem="local" code="PTPAT" displayName=" PROTHROMBIN TIME" /> <statusCode code="completed" /> <effectiveTime value="255308950892" /> & lt;value unit="sec" xsi:type="PQ" value="13.2" /& gt; <interpretationCode codeSystem="local" code="*& quot; /> <referenceRange><observationRange> <text>10.0-12.8</text> </observationRange> </referenceRange> </observation> </component> </organizer> </entry> <entry> <organizer moodCode= "EVN" classCode="BATTERY"> <templateId root=&quot ;2.16.840.1.232169.10.20.22.4.1" /> <id nullFlavor="NA&quot ; /> <code codeSystem="local" code="PTT" displayName="PARTIAL THROMBOPLASTIN TIME" /> <statusCode code="completed" /> <component> <observation moodCode="EVN" classCode="OBS"> <templateId root="2.16.840.1.119648.10.20.22.4.2" /> <id nullFlavor ="NA" /> <code codeSystem="local" code=" PTT" displayName="PARTIAL THROMBOPLASTIN TIME" /> &lt ;statusCode code="completed" /> <effectiveTime value=& quot;046797718400" /> <value unit="sec" xsi:type=& quot;PQ" value="26" /> <referenceRange> <observationRange> <text>25-37</text> </observationRange> </referenceRange> </ observation> </component> </organizer> </entry> & lt;entry> <organizer moodCode="EVN" classCode="BATTERY& quot;> <templateId root="2.16.840.1.654816.10.20.22.4.1" /& gt; <id nullFlavor="NA" /> <code codeSystem=" local" code="METABC" displayName="METABOLIC PANEL, COMPREHN& quot; /> <statusCode code="completed" /> < component> <observation moodCode="EVN" classCode=" OBS"> <templateId root="2.16.840.1.492542.10.20.22.4.2& quot; /> <id nullFlavor="NA" /> <code codeSystem="local" code="K" displayName="POTASSIUM&quot ; /> <statusCode code="completed" /> < effectiveTime value="439500283516" /> <value unit=&quot ;mmol/L" xsi:type="PQ" value="4.3" /> < referenceRange> <observationRange> <text>3.5- 5.3</text> </observationRange> </ referenceRange> </observation> </component> < component> <observation moodCode="EVN" classCode=" OBS"> <templateId root="2.16.840.1.360500.10.20.22.4.2& quot; /> <id nullFlavor="NA" /> <code codeSystem="local" code="eGFR" displayName="EST GFR ( MDRD)" /> <statusCode code="completed" /> < effectiveTime value="915633715405" /> <value unit=&quot ;mL/min" xsi:type="PQ" value="40" /> < interpretationCode codeSystem="local" code="*" /> <referenceRange> <observationRange> < text>> 59</text> </observationRange> & lt;/referenceRange> </observation> </component> <component> <observation moodCode="EVN" classCode="OBS& quot;> <templateId root="2.16.840.1.769016.10..22.4.2&quot ; /> <id nullFlavor="NA" /> <code codeSystem= "local" code="GAP" displayName="ANION GAP" /> <statusCode code="completed" /> < effectiveTime value="262912604885" /> <value unit=&quot ;mmol/L" xsi:type="PQ" value="7" /> < referenceRange> <observationRange> <text> 5-15</text> </observationRange> </ referenceRange> </observation> </component> < component> <observation moodCode="EVN" classCode=" OBS"> <templateId root="2.16.840.1.060134.10..22.4.2& quot; /> <id nullFlavor="NA" /> <code codeSystem="local" code="eCrCl" displayName="EST CrCl ( CG)" /> <statusCode code="completed" /> <effectiveTime value="503387496584" /> <value unit="mL/min" xsi:type="PQ" value="56" /> & lt;interpretationCode codeSystem="local" code="*" /> <referenceRange> <observationRange> & lt;text>> 59</text> </observationRange> & lt;/referenceRange> </observation></component> < component> <observation moodCode="EVN" classCode=" OBS"> <templateId root="2.16.840.1.584706.10.20.22.4.2& quot; /> <id nullFlavor="NA" /> <code codeSystem="local" code="GLU" displayName="GLUCOSE&quot ; /> <statusCode code="completed" /> < effectiveTime value="622496249621" /> <value unit=&quot ;mg/dL" xsi:type="PQ" value="148" /> < interpretationCode codeSystem="local" code="*" /> <referenceRange> <observationRange> < text>70-99</text> </observationRange> </ referenceRange> </observation> </component> < component> <observation moodCode="EVN" classCode=" OBS"> <templateId root="2.16.840.1.774547.10..22.4.2& quot; /> <id nullFlavor="NA" /> <code codeSystem="local" code="CA" displayName="CALCIUM&quot ; /> <statusCode code="completed" /> < effectiveTime value="671924175994" /> <value unit=&quot ;mg/dL" xsi:type="PQ" value="9.7" /> < referenceRange> <observationRange><text>8.5-10.1</ text> </observationRange> </referenceRange> </observation> </component> <component> <observationmoodCode="EVN" classCode="OBS"> <templateId root="2.16.840.1.703443.10..22.4.2" /> <id nullFlavor="NA" /> <code codeSystem=" local" code="BUN" displayName="BLOOD UREA NITROGEN" /& gt; <statusCode code="completed" /> < effectiveTime value="483311738911" /> <value unit=&quot ;mg/dL" xsi:type="PQ" value="51" /> < interpretationCode codeSystem="local" code="*" /> < referenceRange> <observationRange> <text> 7-20</text> </observationRange> </ referenceRange> </observation> </component> < component> <observation moodCode="EVN" classCode=" OBS"> <templateId root="2.16.840.1.458365.10.20.22.4.2& quot; /> <id nullFlavor="NA" /> <code codeSystem="local" code="CREAT" displayName="CREATININE " /> <statusCode code="completed" /> & lt;effectiveTime value="984360497252" /> <value unit=& quot;mg/dL" xsi:type="PQ" value="1.3" /> & lt;interpretationCode codeSystem="local" code="*" /> <referenceRange> <observationRange> & lt;text>0.6-1.0</text> </observationRange> & lt;/referenceRange> </observation> </component> <component> <observation moodCode="EVN" classCode=& quot;OBS"> <templateId root=" 2.16.840.1.392320.10..22.4.2" /> <id nullFlavor="NA& quot; /> <code codeSystem="local" code="NA" displayName="SODIUM" /> <statusCode code=" completed" /> <effectiveTime value="451197632844" /> <value unit="mmol/L" xsi:type="PQ" value=& quot;136" /> <referenceRange> < observationRange> <text>135-148</text> < /observationRange> </referenceRange> </observation& gt; </component> <component> <observation moodCode="EVN" classCode="OBS"> <templateId root="2.16.840.1.550662.10..22.4.2" /> <id nullFlavor ="NA" /> <code codeSystem="local" code=" CL" displayName="CHLORIDE" /> <statusCode code=" completed" /> <effectiveTime value="304595842287" /> <value unit="mmol/L" xsi:type="PQ" value=& quot;100" /> <referenceRange> < observationRange> <text>98-110</text> &lt ;/observationRange> </referenceRange> </observation& gt; </component> <component> <observation moodCode="EVN" classCode="OBS"> <templateId root="2.16.840.1.027205.10..22.4.2" /> <id nullFlavor ="NA" /> <code codeSystem="local" code=" AST" displayName="AST/SGOT" /> <statusCode code=& quot;completed" /> <effectiveTime value="497515880508& quot; /> <value unit="Units/L" xsi:type="PQ" value=& quot;13" /> <referenceRange> < observationRange> <text>10-37</text> </ observationRange> </referenceRange> </observation&gt ; </component> <component> <observation moodCode ="EVN" classCode="OBS"> <templateId root=& quot;[id number]" /> <id nullFlavor="NA& quot; /> <code codeSystem="local" code="ALT" displayName="ALT/SGPT" /> <statusCode code=" completed" /> <effectiveTime value="[id number]" /> <value unit="Units/L" xsi:type="PQ" value= "28" /> <referenceRange> <observationRange&gt ; <text>< 66</text> </ observationRange> </referenceRange> </observation&gt ; </component> <component> <observation moodCode= "EVN" classCode="OBS"> <templateId root=" 2.16.840.1.282173.10.20.22.4.2" /> <id nullFlavor="NA& quot; /> <code codeSystem="local" code="CO2" displayName="CARBON DIOXIDE" /> <statusCode code=" completed" /> <effectiveTime value="196499615690" /> <value unit="mmol/L" xsi:type="PQ" value="29 " /> <referenceRange> <observationRange&gt ; <text>21-32</text> </observationRange& gt; </referenceRange> </observation> </component > <component> <observation moodCode="EVN" classCode="OBS"> <templateId root=" 2.16.840.1.778525.10..22.4.2" /> <id nullFlavor="NA& quot;/> <code codeSystem="local" code="TP" displayName="TOTAL PROTEIN" /> <statusCode code=" completed" /> <effectiveTime value="228446311969" /> <value unit="gm/dL" xsi:type="PQ" value=& quot;7.1" /> <referenceRange> < observationRange> <text>6.4-8.2</text> </ observationRange> </referenceRange> </observation&gt ; </component> <component> <observation moodCode ="EVN" classCode="OBS"> <templateId root=& quot;2.16.840.1.450882.10.20.22.4.2" /> <id nullFlavor=&quot ;NA" /> <code codeSystem="local" code="ALB& quot; displayName="ALBUMIN" /> <statusCode code="completed& quot; /> <effectiveTime value="185434150733" /> <value unit="gm/dL" xsi:type="PQ" value="3.3& quot; /> <interpretationCode codeSystem="local" code=& quot;*" /> <referenceRange> < observationRange> <text>3.4-5.0</text> & lt;/observationRange> </referenceRange> </ observation> </component> <component> < observation moodCode="EVN" classCode="OBS"> < templateId root="2.16.840.1.994613.10.20.22.4.2" /> < id nullFlavor="NA" /> <code codeSystem="local&quot ; code="BILTOT" displayName="BILI TOTAL" /> < statusCode code="completed" /> <effectiveTime value=& quot;191889137556" /> <value unit="mg/dL" xsi:type ="PQ" value="0.4" /> <referenceRange> <observationRange> <text>0.0-1.0</text> </observationRange> </referenceRange> &lt ;/observation> </component> <component> < observation moodCode="EVN" classCode="OBS"> < templateId root="2.16.840.1.893851.10.20.22.4.2" /> < id nullFlavor="NA" /> <code codeSystem="local&quot ; code="ALKP" displayName="ALKALINE PHOSPHATASE TOTAL" /&gt ; <statusCode code="completed" /> < effectiveTime value="547380194354" /> <value unit=&quot ;IU/L" xsi:type="PQ" value="39" /> < interpretationCode codeSystem="local" code="*" /> <referenceRange> <observationRange> < text>45-117</text> </observationRange> </ referenceRange> </observation> </component> </ organizer> </entry> <entry> <organizer moodCode="EVN " classCode="BATTERY"> <templateId root=" 2.16.840.1.590877.10.20.22.4.1" /> <id nullFlavor="NA&quot ; /> <code codeSystem="local" code="MAG" displayName="MAGNESIUM" /> <statusCode code="completed " /> <component> <observation moodCode="EVN& quot; classCode="OBS"> <templateId root=" 2.16.840.1.828680.10.20.22.4.2" /> <id nullFlavor="NA& quot; /> <code codeSystem="local" code="MAG" displayName="MAGNESIUM" /> <statusCode code=" completed" /> <effectiveTime value="576879582569" /> <value unit="mg/dL" xsi:type="PQ" value=& quot;1.9" /> <referenceRange> < observationRange> <text>1.8-2.4</text> </ observationRange> </referenceRange> </observation&gt ; </component> </organizer> </entry> <entry> <organizer moodCode="EVN" classCode="BATTERY"> <templateId root="2.16.840.1.678577.10.20.22.4.1" /> < id nullFlavor="NA" /> <code codeSystem="local" code="TSH" displayName="THYROID STIM HORMONE (TSH)" /> <statusCode code="completed" /> <component> <observation moodCode="EVN" classCode="OBS"> <templateId root="2.16.840.1.868129.10.20.22.4.2" /> <id nullFlavor="NA" /> <code codeSystem=" local" code="TSH" displayName="THYROID STIM HORMONE (TSH)& quot; /> <statusCode code="completed" /> & lt;effectiveTime value="699477381492" /> <value unit=& quot;uIU/mL" xsi:type="PQ" value="0.87" /> <referenceRange> <observationRange> <text >0.34-4.82</text> </observationRange> </ referenceRange> </observation> </component> </ organizer> </entry> <entry> <organizer moodCode="EVN& quot; classCode="BATTERY"> <templateId root=" 2.16.840.1.717154.10.20.22.4.1" /> <id nullFlavor="NA&quot ; /> <code codeSystem="local" code="GHGLUMON" displayName="GLUCOSE (POC)" /> <statusCode code=" completed" /> <component> <observation moodCode=& quot;EVN" classCode="OBS"> <templateId root=" 2.16.840.1.827228.10.20.22.4.2" /> <id nullFlavor="NA& quot; /> <code codeSystem="local" code="GHGLUMON& quot; displayName="GLUCOSE (POC)" /> <statusCode code=& quot;completed" /> <effectiveTime value="948061466243& quot; /> <value unit="mg/dL" xsi:type="PQ" value="158" /> <interpretationCode codeSystem=" local" code="*" /> <referenceRange> <observationRange> <text>70-99</text> </ observationRange> </referenceRange> </observation&gt ; </component> </organizer> </entry> <entry> <organizer moodCode="EVN" classCode="BATTERY"> <templateId root="2.16.840.1.914269.10.20.22.4.1" /> < id nullFlavor="NA" /> <code codeSystem="local" code="GHGLUMON" displayName="GLUCOSE (POC)" /> < statusCode code="completed" /> <component> < observation moodCode="EVN" classCode="OBS"> < templateId root="2.16.840.1.068648.10.20.22.4.2" /> < id nullFlavor="NA" /><code codeSystem="local" code=& quot;GHGLUMON" displayName="GLUCOSE (POC)" /> < statusCode code="completed" /> <effectiveTime value=& quot;526034516188" /> <value unit="mg/dL" xsi:type ="PQ" value="148" /> <interpretationCode codeSystem="local" code="*" /> < referenceRange> <observationRange> <text> 70-99</text> </observationRange> </ referenceRange> </observation> </component> </ organizer> </entry> <entry> <organizer moodCode="EVN " classCode="BATTERY"> <templateId root=" 2.16.840.1.185619.10.20.22.4.1" /> <id nullFlavor="NA&quot ; /> <code codeSystem="local" code="ABG" displayName="ARTERIAL BLOOD GAS" /> <statusCode code=" completed" /> <component> <observation moodCode=& quot;EVN" classCode="OBS"> <templateId root=" 2.16.840.1.665777.10.20.22.4.2" /> <id nullFlavor="NA& quot; /> <code codeSystem="local" code="TED" displayName="ABG BASE EXCESS" /> <statusCode code=&quot ;completed" /> <effectiveTime value="522448850627&quot ; /> <value unit="meq/L" xsi:type="PQ" value= "-4.2" /> <interpretationCode codeSystem="local" code="*" /> <referenceRange> < observationRange> <text>-3.0-3.0</text> </ observationRange> </referenceRange> </observation&gt ; </component> <component> <observation moodCode ="EVN" classCode="OBS"> <templateId root=& quot;2.16.840.1.077548.10.20.22.4.2" /> <id nullFlavor="NA& quot; /> <code codeSystem="local" code="HCO3A&quot ; displayName="ABG BICARBONATE" /> <statusCode code=& quot;completed" /> <effectiveTime value="559921666424& quot; /> <value unit="meq/L" xsi:type="PQ" value="23.0" /> <referenceRange> < observationRange> <text>23.0-28.0</text> </observationRange> </referenceRange> </ observation> </component> <component> < observation moodCode="EVN" classCode="OBS"> < templateId root="2.16.840.1.164273.10.20.22.4.2" /> < id nullFlavor="NA" /> <code codeSystem="local&quot ; code="PCO2A"displayName="ABG PCO2" /> < statusCode code="completed" /> <effectiveTime value=" 979238336123" /> <value unit="mmHg" xsi:type=&quot ;PQ" value="52" /> <interpretationCode codeSystem= "local" code="*" /> <referenceRange> <observationRange> <text>34-45</text> </observationRange> </referenceRange> </ observation> </component> <component> < observation moodCode="EVN" classCode="OBS"> < templateId root="2.16.840.1.267426.10.20.22.4.2" /> < id nullFlavor="NA" /><code codeSystem="local" code=& quot;PHAX" displayName="ABG PH" /> <statusCode code=& quot;completed" /> <effectiveTime value="783916187299& quot; /> <value unit="" xsi:type="PQ" value=& quot;7.27" /> <interpretationCode codeSystem="local& quot; code="*" /> <referenceRange> < observationRange> <text>7.35-7.45</text> </observationRange> </referenceRange> </ observation> </component> <component> < observation moodCode="EVN" classCode="OBS"> < templateId root="2.16.840.1.254523.10..22.4.2" /> < id nullFlavor="NA" /> <code codeSystem="local&quot ; code="PO2A" displayName="ABG PO2" /> < statusCode code="completed" /> <effectiveTime value=& quot;694131656532" /> <value unit="mmHg" xsi:type= "PQ" value="142" /> < interpretationCodecodeSystem="local" code="*" /> <referenceRange> <observationRange> < text>75-100</text> </observationRange> </ referenceRange> </observation> </component> < component> <observation moodCode="EVN" classCode=" OBS"> <templateId root="2.16.840.1.836355.10.20.22.4.2& quot; /> <id nullFlavor="NA" /> <code codeSystem="local" code="SATA" displayName="ABG O2 SATURATION" /> <statusCode code="completed" /> <effectiveTime value="902749389690" /> < value unit="%" xsi:type="PQ" value="99" /& gt; <referenceRange> <observationRange> <text>93-100</text> </observationRange></ referenceRange> </observation> </component> </ organizer> </entry> <entry> <organizer moodCode="EVN " classCode="BATTERY"> <templateId root=" 2.16.840.1.588682.10.20.22.4.1" /> <id nullFlavor="NA&quot ; /> <code codeSystem="local" code="METAB" displayName="METABOLIC PANEL, BASIC" /> <statusCode code=& quot;completed" /> <component> <observation moodCode="EVN" classCode="OBS"> <templateId root="2.16.840.1.937263.10.20.22.4.2" /> <id nullFlavor ="NA" /> <code codeSystem="local" code=" K" displayName="POTASSIUM" /> <statusCode code=& quot;completed" /> <effectiveTime value="323152754793& quot; /> <value unit="mmol/L" xsi:type="PQ" value="6.4" /> <interpretationCode codeSystem=" local" code="" /> <referenceRange> <observationRange><text>3.5-5.3</text> </ observationRange> </referenceRange> </observation&gt ; </component> <component> <observation moodCode ="EVN" classCode="OBS"> <templateId root=& quot;2.16.840.1.771211.10.20.22.4.2" /> <id nullFlavor=&quot ;NA" /> <code codeSystem="local" code="eGFR& quot; displayName="EST GFR (MDRD)" /><statusCode code=" completed" /> <effectiveTime value="232512267398" /> <value unit="mL/min" xsi:type="PQ" value=& quot;18" /> <interpretationCode codeSystem="local&quot ; code="*" /> <referenceRange> < observationRange> <text>> 59</text> </observationRange> </referenceRange> </ observation> </component> <component> < observation moodCode="EVN" classCode="OBS"> < templateId root="2.16.840.1.043681.10.20.22.4.2" /> < id nullFlavor="NA" /> <code codeSystem="local&quot ; code="GAP" displayName="ANION GAP" /> < statusCode code="completed" /> <effectiveTime value=& quot;257074813738" /> <value unit="mmol/L" xsi: type="PQ" value="9" /> <referenceRange> <observationRange> <text>5-15</text> </observationRange> </referenceRange> < /observation> </component> <component> < observation moodCode="EVN" classCode="OBS"> < templateId root="2.16.840.1.182188.10.20.22.4.2" /> < id nullFlavor="NA" /> <code codeSystem="local&quot ; code="eCrCl" displayName="EST CrCl (CG)" /> & lt;statusCode code="completed" /> <effectiveTime value=" " /> <value unit="mL/min" xsi:type=& quot;PQ" value="28" /> <interpretationCode codeSystem="local" code="*" /> < referenceRange> <observationRange> <text> > 59</text> </observationRange> </ referenceRange> </observation> </component> < component> <observation moodCode="EVN" classCode="OBS& quot;> <templateId root="2.16.840.1.736234.10.20.22.4.2&quot ; /> <id nullFlavor="NA" /> <code codeSystem="local" code="GLU" displayName="GLUCOSE&quot ; /> <statusCode code="completed" /> < effectiveTime value="131813939657" /> <value unit=&quot ;mg/dL" xsi:type="PQ" value="203" /> < interpretationCode codeSystem="local" code="*" /> <referenceRange> <observationRange> < text>70-99</text> </observationRange> </ referenceRange> </observation> </component> < component> <observation moodCode="EVN" classCode=" OBS"> <templateId root="2.16.840.1.192774.10.20.22.4.2& quot; /> <id nullFlavor="NA" /> <code codeSystem="local" code="CA" displayName="CALCIUM&quot ; /> <statusCode code="completed" /> < effectiveTime value="086102603557" /> <value unit=&quot ;mg/dL" xsi:type="PQ" value="8.7" /> < referenceRange> <observationRange> <text> 8.5-10.1</text></observationRange> </referenceRange> </observation> </component> <component> <observation moodCode="EVN" classCode="OBS"> <templateId root="2.16.840.1.598272.10.20.22.4.2" /> <id nullFlavor="NA" /> <code codeSystem=" local" code="BUN" displayName="BLOOD UREA NITROGEN" /& gt; <statusCode code="completed" /> < effectiveTime value="" /> <value unit=&quot ;mg/dL" xsi:type="PQ" value="61" /> < interpretationCode codeSystem="local" code="*" /> <referenceRange> <observationRange> < text>7-20</text> </observationRange> </ referenceRange> </observation> </component> < component> <observation moodCode="EVN" classCode=" OBS"> <templateId root="2.16.840.1.161065.10.20.22.4.2& quot; /> <id nullFlavor="NA" /> <code codeSystem="local" code="CREAT" displayName="CREATININE " /> <statusCode code="completed" /> & lt;effectiveTime value="026528674859" /> <value unit=& quot;mg/dL" xsi:type="PQ" value="2.6" /> & lt;interpretationCode codeSystem="local" code="*" /> <referenceRange> <observationRange> & lt;text>0.6-1.0</text> </observationRange> & lt;/referenceRange> </observation> </component> < component> <observation moodCode="EVN" classCode=" OBS"> <templateId root="2.16.840.1.336059.10.20.22.4.2& quot; /> <id nullFlavor="NA" /> <code codeSystem="local" code="NA" displayName="SODIUM" /> <statusCode code="completed" /> < effectiveTime value="232096423321" /> <value unit="mmol/L& quot; xsi:type="PQ" value="135" /> < referenceRange> <observationRange> <text> 135-148</text> </observationRange> </ referenceRange> </observation> </component> < component> <observation moodCode="EVN" classCode=" OBS"> <templateId root="2.16.840.1.545302.10.20.22.4.2& quot; /> <id nullFlavor="NA" /> <code codeSystem="local" code="CL" displayName="CHLORIDE&quot ; /> <statusCode code="completed" /> < effectiveTime value="120982255925" /> <value unit=&quot ;mmol/L" xsi:type="PQ" value="101" /> < referenceRange> <observationRange> <text>98- 110</text> </observationRange> </ referenceRange> </observation> </component> < component> <observation moodCode="EVN" classCode=" OBS"> <templateId root="2.16.840.1.208603.10.20.22.4.2&quot ; /> <id nullFlavor="NA" /> <code codeSystem="local" code="CO2" displayName="CARBON DIOXIDE" /> <statusCode code="completed" /> <effectiveTime value="721142599070" /> < value unit="mmol/L" xsi:type="PQ" value="25" /&gt ; <referenceRange> <observationRange> <text>21-32</text> </observationRange> </ referenceRange> </observation> </component> </ organizer> </entry> <entry> <organizer moodCode="EVN& quot; classCode="BATTERY"> <templateId root=" 2.16.840.1.746166.10.20.22.4.1" /> <id nullFlavor="NA&quot ; /> <code codeSystem="local" code="CBCD" displayName="CBC W/DIFF" /> <statusCode code=" completed" /> <component> <observation moodCode=& quot;EVN" classCode="OBS"> <templateId root=" 2.16.840.1.109053.10.20.22.4.2" /> <id nullFlavor="NA& quot; /> <code codeSystem="local" code="GR#" displayName="GRANULOCYTE #" /> <statusCode code=" completed" /> <effectiveTime value="272413206569" /> <value unit="k/cumm" xsi:type="PQ" value=& quot;16.8" /> <interpretationCode codeSystem="local& quot; code="*" /> <referenceRange> < observationRange> <text>2.0-9.0</text> & lt;/observationRange> </referenceRange> </observation& gt; </component> <component> <observation moodCode="EVN" classCode="OBS"> <templateId root="2..840.1.207679.10.20.22.4.2" /> <id nullFlavor ="NA" /> <code codeSystem="local" code=" GR%" displayName="GRANULOCYTE %" /> & lt;statusCode code="completed" /> <effectiveTime value= "310062394878" /> <value unit="%" xsi :type="PQ" value="85" /> <interpretationCode codeSystem="local" code="*" /> < referenceRange> <observationRange> <text> 50-75</text> </observationRange> </ referenceRange> </observation> </component> < component> <observation moodCode="EVN" classCode=" OBS"> <templateId root="2.16.840.1.815134.10..22.4.2& quot; /> <id nullFlavor="NA" /> <code codeSystem="local" code="LY#" displayName="LYMPHOCYTE # " /> <statusCode code="completed" /> & lt;effectiveTime value="562402472274" /> <value unit=& quot;k/cumm" xsi:type="PQ" value="0.9" /> & lt;interpretationCode codeSystem="local" code="*" /> <referenceRange> <observationRange> < text>1.0-4.0</text> </observationRange> </ referenceRange> </observation> </component> < component> <observation moodCode="EVN" classCode=" OBS"> <templateId root="2.16.840.1.062086.10.20.22.4.2& quot; /> <id nullFlavor="NA" /> <code codeSystem="local" code="LY%" displayName=" LYMPHOCYTE %" /> <statusCode code="completed& quot; /> <effectiveTime value="064194209327" /> <value unit="%" xsi:type="PQ" value="5 " /> <interpretationCode codeSystem="local" code=& quot;*" /> <referenceRange> < observationRange> <text>20-30</text> < /observationRange> </referenceRange> </observation&gt ; </component> <component> <observation moodCode ="EVN" classCode="OBS"> <templateId root=& quot;2.16.840.1.345390.10.20.22.4.2" /> <id nullFlavor=&quot ;NA" /> <code codeSystem="local" code="MCH& quot; displayName="MEAN CELL HGB" /> <statusCode code=& quot;completed" /> <effectiveTime value="161945015669& quot; /> <value unit="pg" xsi:type="PQ" value ="28.1" /> <referenceRange> < observationRange> <text>27.0-33.0</text> < /observationRange> </referenceRange> </observation& gt; </component> <component> <observation moodCode="EVN" classCode="OBS"> <templateId root="2.16.840.1.992830.10.20.22.4.2" /> <id nullFlavor ="NA" /> <code codeSystem="local" code=" MCHC" displayName="MEAN CELL HGB CONCENTRATION" /> & lt;statusCode code="completed" /> <effectiveTime value= "741241678614" /> <value unit="g/dL" xsi:type ="PQ"value="30.6" /> <interpretationCode codeSystem="local" code="*" /> < referenceRange> <observationRange> <text> 32.0-37.0</text> </observationRange> </ referenceRange> </observation> </component> < component> <observation moodCode="EVN" classCode=" OBS"> <templateId root="2.16.840.1.602516.10.20.22.4.2& quot; /> <id nullFlavor="NA" /> <code codeSystem="local" code="MCV" displayName="MEAN CELL VOLUME" /> <statusCode code="completed" /> <effectiveTime value="525069755806" /> <value unit="fl" xsi:type="PQ" value="91.7" /> <referenceRange> <observationRange> <text >80.0-100.0</text> </observationRange> </ referenceRange> </observation> </component> < component> <observation moodCode="EVN" classCode=" OBS"> <templateId root="2.16.840.1.061488.10.20.22.4.2& quot; /> <id nullFlavor="NA" /> <code codeSystem="local" code="MO#" displayName="MONOCYTE #& quot; /> <statusCode code="completed" /> & lt;effectiveTime value="447714205313" /> <value unit=& quot;k/cumm" xsi:type="PQ" value="2.0" /> & lt;interpretationCode codeSystem="local" code="*" /> <referenceRange> <observationRange> < text>0.1-1.0</text> </observationRange> </ referenceRange> </observation> </component> < component> <observation moodCode="EVN" classCode=" OBS"> <templateId root="2.16.840.1.991274.10.20.22.4.2& quot; /> <id nullFlavor="NA" /> <code codeSystem="local" code="MO%" displayName=" MONOCYTE %" /> <statusCode code="completed&quot ;/> <effectiveTime value="287303932877" /> <value unit="%" xsi:type="PQ" value="10&quot ; /> <interpretationCode codeSystem="local" code=" *" /> <referenceRange> <observationRange&gt ; <text>4-6</text> </observationRange&gt ; </referenceRange> </observation> </component&gt ; <component> <observation moodCode="EVN" classCode="OBS"> <templateId root=" 2.16.840.1.827312.10.20.22.4.2" /> <id nullFlavor="NA& quot; /> <code codeSystem="local" code="RBC" displayName="RED BLOODCELL" /> <statusCode code=" completed" /> <effectiveTimevalue="385779964437" / > <value unit="m/cumm" xsi:type="PQ" value=& quot;3.60" /> <interpretationCode codeSystem="local& quot; code="*" /> <referenceRange> < observationRange> <text>4.00-6.00</text> </observationRange> </referenceRange> </ observation> </component> <component> < observation moodCode="EVN" classCode="OBS"> < templateId root="2.16.840.1.100525.10.20.22.4.2" /> < id nullFlavor="NA" /> <code codeSystem="local&quot ; code="RDW" displayName="RED CELL DISTRIBUTION WIDTH" /&gt ; <statusCode code="completed" /> < effectiveTime value="202307310893" /> <value unit=&quot ;%" xsi:type="PQ" value="16.6" /> & lt;interpretationCode codeSystem="local" code="*" /> <referenceRange> <observationRange> & lt;text>11.0-15.6</text> </observationRange> </referenceRange> </observation> </component> <component> <observation moodCode="EVN" classCode=& quot;OBS"> <templateId root=" 2.16.840.1.740037.10.20.22.4.2" /> <id nullFlavor="NA& quot; /> <code codeSystem="local" code="WBC" displayName="WHITE BLOOD CELL" /> <statusCode code=& quot;completed" /> <effectiveTime value="334391503579& quot; /> <value unit="k/cumm" xsi:type="PQ" value="19.8" /> <interpretationCode codeSystem="local& quot; code="*" /> <referenceRange> < observationRange> <text>5.0-10.0</text> </ observationRange> </referenceRange> </observation&gt ; </component> <component> <observation moodCode ="EVN" classCode="OBS"> <templateId root=& quot;2.16.840.1.181400.10.20.22.4.2" /><id nullFlavor="NA" /> <code codeSystem="local" code="HGBT" displayName="HEMOGLOBIN" /> <statusCode code=" completed" /> <effectiveTime value="749073514662" /> <value unit="gm/dL" xsi:type="PQ" value=& quot;10.1" /> <interpretationCode codeSystem="local& quot; code="*" /> <referenceRange> < observationRange> <text>12.0-16.0</text> </observationRange> </referenceRange> </observation& gt; </component> <component> <observation moodCode="EVN" classCode="OBS"> <templateId root="2.16.840.1.008784.10.20.22.4.2" /> <id nullFlavor ="NA" /> <code codeSystem="local" code=" HCTT" displayName="HEMATOCRIT" /> <statusCode code ="completed" /> <effectiveTime value="559541835900 " /> <value unit="%" xsi:type="PQ& quot; value="33.0" /> <interpretationCode codeSystem=& quot;local" code="*" /> <referenceRange> <observationRange> <text>37.0-47.0</text> </observationRange> </referenceRange> &lt ;/observation> </component> <component> < observationmoodCode="EVN" classCode="OBS"> < templateId root="2.16.840.1.628834.10.20.22.4.2" /> < id nullFlavor="NA" /> <code codeSystem="local&quot ; code="PLTT" displayName="PLATELET COUNT" /> < statusCode code="completed" /> <effectiveTime value=& quot;952570518357" /> <value unit="k/cumm" xsi: type="PQ" value="369"/> <referenceRange> <observationRange> <text>150-450</text&gt ; </observationRange> </referenceRange> & lt;/observation> </component> </organizer> </entry&gt ; <entry> <organizer moodCode="EVN" classCode=" BATTERY"> <templateId root="2.16.840.1.504079.10.20.22.4.1& quot; /> <id nullFlavor="NA" /> <code codeSystem ="local" code="K" displayName="POTASSIUM" /> <statusCode code="completed" /> <component> <observation moodCode="EVN" classCode="OBS"> <templateId root="2.16.840.1.163272.10.20.22.4.2" /> <id nullFlavor="NA" /> <code codeSystem=" local" code="K" displayName="POTASSIUM" /> <statusCode code="completed" /> <effectiveTime value ="572859045859" /> <value unit="mmol/L" xsi: type="PQ" value="6.2" /> <interpretationCode codeSystem="local" code="" /> < referenceRange> <observationRange> <text> 3.5-5.3</text> </observationRange> </ referenceRange> </observation> </component> </ organizer> </entry> <entry> <organizer moodCode="EVN " classCode="BATTERY"> <templateId root=" 2.16.840.1.849447.10.20.22.4.1" /> <id nullFlavor="NA&quot ; /> <code codeSystem="local" code="GHGLUMON" displayName="GLUCOSE (POC)" /> <statusCode code=" completed" /> <component> <observation moodCode=& quot;EVN" classCode="OBS"> <templateId root=" 2.16.840.1.485453.10.20.22.4.2" /> <id nullFlavor="NA& quot; /> <code codeSystem="local" code="GHGLUMON& quot; displayName="GLUCOSE (POC)" /> <statusCode code=& quot;completed" /> <effectiveTime value="[id number]& quot; /> <value unit="mg/dL" xsi:type="PQ" value="208" /> <interpretationCode codeSystem=" local" code="*" /> <referenceRange> <observationRange> <text>70-99</text> </observationRange> </referenceRange> </observation&gt ; </component> </organizer> </entry> <entry> <organizer moodCode="EVN" classCode="BATTERY"> <templateId root="2.16.840.1.096635.10.20.22.4.1" /> < id nullFlavor="NA" /> <code codeSystem="local" code="METAB" displayName="METABOLIC PANEL, BASIC" /> <statusCode code="completed" /><component> < observation moodCode="EVN" classCode="OBS"> < templateId root="2.16.840.1.920916.10.20.22.4.2" /> < id nullFlavor="NA" /> <code codeSystem="local&quot ; code="K" displayName="POTASSIUM" /> < statusCode code="completed" /> <effectiveTime value=& quot;948245352836" /> <value unit="mmol/L" xsi: type="PQ" value="6.3" /> <interpretationCode codeSystem="local" code="" /> < referenceRange> <observationRange> <text>3.5-5.3& lt;/text> </observationRange> </referenceRange& gt; </observation> </component> <component> <observation moodCode="EVN" classCode="OBS"> <templateId root="2.16.840.1.989553.10.20.22.4.2" /> <id nullFlavor="NA" /> <code codeSystem=&quot ;local" code="eGFR" displayName="EST GFR (MDRD)" /> <statusCode code="completed" /> <effectiveTime value="753177511975" /> <value unit="mL/min" xsi:type="PQ" value="16" /> < interpretationCode codeSystem="local" code="*" /> < referenceRange> <observationRange> <text> > 59</text> </observationRange> </ referenceRange> </observation> </component> < component> <observation moodCode="EVN" classCode=" OBS"> <templateId root="2.16.840.1.099919.10.20.22.4.2& quot; /> <id nullFlavor="NA" /> <code codeSystem="local" code="GAP" displayName="ANION GAP& quot; /> <statusCode code="completed" /> & lt;effectiveTime value="864286484325" /> <value unit=& quot;mmol/L" xsi:type="PQ" value="12" /> & lt;referenceRange> <observationRange> <text& gt;5-15</text> </observationRange> </ referenceRange> </observation> </component> < component> <observation moodCode="EVN" classCode=" OBS"> <templateId root="2.16.840.1.616569.10.20.22.4.2& quot; /> <idnullFlavor="NA" /> <code codeSystem="local" code="eCrCl" displayName="EST CrCl ( CG)" /> <statusCode code="completed" /> <effectiveTime value="012141354826" /> <value unit="mL/min" xsi:type="PQ" value="25" /> <interpretationCode codeSystem="local" code="*" /&gt ; <referenceRange> <observationRange> <text>> 59</text> </observationRange> </referenceRange> </observation> </component> <component> <observation moodCode="EVN" classCode ="OBS"> <templateId root=" 2.16.840.1.529990.10..22.4.2" /> <id nullFlavor="NA& quot; /> <code codeSystem="local" code="GLU" displayName="GLUCOSE" /> <statusCode code=" completed" /> <effectiveTime value="447721412995" /> <value unit="mg/dL" xsi:type="PQ" value=& quot;198" /> <interpretationCode codeSystem="local&quot ; code="*" /> <referenceRange> < observationRange> <text>70-99</text> < /observationRange> </referenceRange> </observation& gt; </component> <component> <observation moodCode="EVN" classCode="OBS"> <templateId root="2.16.840.1.295278.10.20.22.4.2" /> <id nullFlavor ="NA" /> <code codeSystem="local" code=" CA" displayName="CALCIUM" /> <statusCode code=& quot;completed" /> <effectiveTime value="038490147894& quot; /> <value unit="mg/dL" xsi:type="PQ" value="8.8" /> <referenceRange> < observationRange> <text>8.5-10.1</text> </ observationRange> </referenceRange> </observation&gt ; </component> <component> <observation moodCode ="EVN" classCode="OBS"> <templateId root=& quot;2.16.840.1.577927.10.20.22.4.2" /> <id nullFlavor="NA&quot ; /> <code codeSystem="local" code="BUN" displayName="BLOOD UREA NITROGEN" /> <statusCode code=& quot;completed" /> <effectiveTime value="526654647378& quot; /> <value unit="mg/dL" xsi:type="PQ" value="60" /> <interpretationCode codeSystem=" local" code="*" /> <referenceRange> <observationRange> <text>7-20</text> & lt;/observationRange> </referenceRange> </ observation> </component> <component> < observation moodCode="EVN" classCode="OBS"> < templateId root="2.16.840.1.998417.10..22.4.2" /> < id nullFlavor="NA" /> <code codeSystem="local&quot ; code="CREAT" displayName="CREATININE" /> < statusCode code="completed" /> <effectiveTime value=& quot;977117947749" /> <value unit="mg/dL" xsi:type ="PQ" value="2.9" /> <interpretationCode codeSystem="local" code="*" /> < referenceRange> <observationRange> <text> 0.6-1.0</text> </observationRange> </ referenceRange> </observation> </component> < component> <observation moodCode="EVN" classCode=" OBS"> <templateId root="2.16.840.1.739314.10.20.22.4.2& quot; /> <id nullFlavor="NA" /> <code codeSystem="local" code="NA" displayName="SODIUM" /> <statusCode code="completed" /> < effectiveTime value="527457558672" /> <value unit=" mmol/L" xsi:type="PQ" value="135" /> < referenceRange> <observationRange> <text> 135-148</text> </observationRange> </ referenceRange> </observation> </component> < component> <observation moodCode="EVN" classCode=" OBS"> <templateId root="2.16.840.1.470692.10.20.22.4.2& quot; /> <id nullFlavor="NA" /> <code codeSystem="local" code="CL" displayName="CHLORIDE&quot ; /> <statusCode code="completed" /> < effectiveTime value="567503392049" /> <value unit=&quot ;mmol/L" xsi:type="PQ" value="99" /> < referenceRange> <observationRange> <text> 98-110</text> </observationRange> </ referenceRange> </observation> </component> < component> <observation moodCode="EVN" classCode=" OBS"> <templateId root="2.16.840.1.788474.10.20.22.4.2& quot; /> <id nullFlavor="NA" /> <code codeSystem="local" code="CO2" displayName="CARBON DIOXIDE" /> <statusCode code="completed" /> <effectiveTime value="595267932296" /> <value unit=& quot;mmol/L" xsi:type="PQ" value="24" /> & lt;referenceRange> <observationRange> <text& gt;21-32</text> </observationRange> </ referenceRange> </observation> </component> </ organizer> </entry> <entry> <organizer moodCode="EVN " classCode="BATTERY"> <templateId root=" 2.16.840.1.674024.10.20.22.4.1" /> <id nullFlavor="NA&quot ; /> <code codeSystem="local" code="CBC" displayName="CBC" /> <statusCode code="completed&quot ; /> <component> <observation moodCode="EVN" classCode="OBS"> <templateId root=" 2.16.840.1.130791.10..22.4.2" /> <id nullFlavor="NA& quot; /> <code codeSystem="local" code="MCH" displayName="MEAN CELL HGB" /> <statusCode code=" completed" /> <effectiveTime value="462756147604" /> <value unit="pg" xsi:type="PQ" value=&quot ;28.2" /> <referenceRange> < observationRange> <text>27.0-33.0</text> </ observationRange> </referenceRange> </observation&gt ; </component> <component> <observation moodCode ="EVN" classCode="OBS"> <templateId root=& quot;2.16.840.1.945809.10..22.4.2" /> <id nullFlavor=&quot ;NA" /> <code codeSystem="local" code="MCHC& quot; displayName="MEAN CELL HGB CONCENTRATION" /> < statusCode code="completed" /> <effectiveTime value=& quot;864076409020" /> <value unit="g/dL" xsi:type= "PQ" value="30.7" /> <interpretationCode codeSystem="local" code="*" /> < referenceRange> <observationRange> <text> 32.0-37.0</text> </observationRange> </ referenceRange> </observation> </component> < component> <observation moodCode="EVN" classCode=" OBS"> <templateId root="2.16.840.1.891808.10.20.22.4.2& quot; /> <id nullFlavor="NA" /> <code codeSystem="local" code="MCV" displayName="MEAN CELL VOLUME" /> <statusCode code="completed" /> <effectiveTime value="802551685965" /> <value unit="fl" xsi:type="PQ" value="91.9" /> < referenceRange> <observationRange> <text> 80.0-100.0</text> </observationRange> </ referenceRange> </observation> </component> < component> <observation moodCode="EVN"classCode="OBS "> <templateId root="2.16.840.1.670580.10.20.22.4.2& quot; /> <id nullFlavor="NA" /> <code codeSystem="local" code="RBC" displayName="RED BLOOD CELL" /> <statusCode code="completed" /> <effectiveTime value="413613856099" /> <value unit="m/cumm" xsi:type="PQ" value="3.69" /> <interpretationCode codeSystem="local" code="*" /& gt; <referenceRange> <observationRange> <text>4.00-6.00</text> </observationRange> </referenceRange> </observation> </component&gt ; <component> <observation moodCode="EVN" classCode="OBS"> <templateId root=" 2.16.840.1.618764.10.20.22.4.2" /> <id nullFlavor="NA& quot; /> <code codeSystem="local" code="RDW" displayName="RED CELL DISTRIBUTION WIDTH" /> < statusCode code="completed" /> <effectiveTime value=& quot;045730208742" /> <value unit="%" xsi: type="PQ" value="16.7" /> < interpretationCode codeSystem="local" code="*" /> <referenceRange> <observationRange> < text>11.0-15.6</text> </observationRange> &lt ;/referenceRange> </observation> </component> & lt;component> <observation moodCode="EVN" classCode=&quot ;OBS"> <templateId root="2.16.840.1.900911.10.20.22.4.2 " /> <id nullFlavor="NA" /> <code codeSystem="local" code="WBC" displayName="WHITE BLOOD CELL" /> <statusCode code="completed" /> <effectiveTime value="563285933755" /> <value unit="k/cumm" xsi:type="PQ" value="23.0" /> <interpretationCode codeSystem="local" code="*" /& gt; <referenceRange> <observationRange> <text>5.0-10.0</text> </observationRange> </referenceRange> </observation> </component> <component> <observation moodCode="EVN" classCode=& quot;OBS"> <templateId root=" 2.16.840.1.058373.10.20.22.4.2" /> <id nullFlavor="NA& quot; /> <code codeSystem="local" code="HGBT&quot ; displayName="HEMOGLOBIN" /> <statusCode code=" completed" /> <effectiveTime value="340989436959" /> <value unit="gm/dL" xsi:type="PQ" value=& quot;10.4" /> <interpretationCode codeSystem="local& quot; code="*" /> <referenceRange> < observationRange> <text>12.0-16.0</text> </observationRange> </referenceRange> </ observation> </component> <component> < observation moodCode="EVN" classCode="OBS"> < templateId root="2.16.840.1.781357.10.20.22.4.2" /> < id nullFlavor="NA" /> <code codeSystem="local&quot ; code="HCTT" displayName="HEMATOCRIT" /> < statusCode code="completed" /> <effectiveTime value=& quot;440677581975" /> <value unit="%" xsi: type="PQ" value="33.9" /> < interpretationCode codeSystem="local" code="*" /> <referenceRange> <observationRange> < text>37.0-47.0</text> </observationRange> &lt ;/referenceRange> </observation> </component> & lt;component> <observation moodCode="EVN" classCode=&quot ;OBS"> <templateId root="2.16.840.1.568986.10.20.22.4.2 " /> <id nullFlavor="NA" /> <code codeSystem="local" code="PLTT" displayName="PLATELET COUNT" /> <statusCode code="completed" /> <effectiveTime value="689399805132" /> <value unit ="k/cumm" xsi:type="PQ" value="367" /> <referenceRange> <observationRange> < text>150-450</text> </observationRange> </ referenceRange> </observation> </component> </ organizer> </entry> <entry> <organizer moodCode="EVN " classCode="BATTERY"> <templateId root=" 2.16.840.1.674365.10.20.22.4.1" /> <id nullFlavor="NA&quot ; /> <code codeSystem="local" code="PT" displayName="PROTHROMBIN TIME WITH INR" /> <statusCode code ="completed" /> <component> <observation moodCode="EVN" classCode="OBS"> <templateId root="2.16.840.1.526781.10.20.22.4.2" /> <id nullFlavor ="NA" /> <code codeSystem="local" code=" INRX" displayName="INTERNATIONAL NORMAL RATIO" /> &lt ;statusCode code="completed" /> <effectiveTime value=& quot;479765912189" /> <value unit="" xsi:type=& quot;PQ" value="1.3" /> <interpretationCode codeSystem="local" code="*" /> < referenceRange> <observationRange> <text> 0.9-1.1</text> </observationRange> </ referenceRange> </observation> </component> < component> <observation moodCode="EVN" classCode=" OBS"> <templateId root="2.16.840.1.208918.10.20.22.4.2& quot; /> <id nullFlavor="NA" /> <code codeSystem="local" code="PTPAT" displayName=" PROTHROMBIN TIME" /> <statusCode code="completed" /> <effectiveTime value="359171709356" /> & lt;value unit="sec" xsi:type="PQ" value="14.3" /& gt; <interpretationCode codeSystem="local" code="*& quot; /> <referenceRange> <observationRange> <text>10.0-12.8</text> </ observationRange> </referenceRange> </observation&gt ; </component> </organizer> </entry> <entry> <organizer moodCode="EVN" classCode="BATTERY"> <templateId root="2.16.840.1.329961.10.20.22.4.1" /> < id nullFlavor="NA" /> <code codeSystem="local" code= "PTT" displayName="PARTIAL THROMBOPLASTIN TIME" /> & lt;statusCode code="completed" /> <component> < observation moodCode="EVN" classCode="OBS"> < templateId root="2.16.840.1.879799.10.20.22.4.2" /> < id nullFlavor="NA" /> <code codeSystem="local" code="PTT" displayName="PARTIAL THROMBOPLASTIN TIME" /> <statusCode code="completed" /> < effectiveTime value="093732443767" /> <value unit=&quot ;sec" xsi:type="PQ" value="32" /> < referenceRange> <observationRange> <text>25- 37</text> </observationRange> </ referenceRange> </observation> </component> </ organizer> </entry> <entry> <organizer moodCode="EVN& quot; classCode="BATTERY"> <templateId root=" 2.16.840.1.011146.10.20.22.4.1" /> <id nullFlavor="NA&quot ; /> <code codeSystem="local" code="K" displayName="POTASSIUM" /> <statusCode code="completed " /> <component> <observation moodCode="EVN& quot; classCode="OBS"> <templateId root=" 2.16.840.1.885499.10.20.22.4.2" /> <id nullFlavor="NA& quot; /> <code codeSystem="local" code="K" displayName="POTASSIUM" /> <statusCode code=" completed" /> <effectiveTime value="101504398323" /> <value unit="mmol/L" xsi:type="PQ" value=& quot;6.3" /> <interpretationCode codeSystem="local&quot ; code="" /> <referenceRange> < observationRange> <text>3.5-5.3</text> & lt;/observationRange> </referenceRange> </ observation> </component> </organizer> </entry> & lt;entry> <organizer moodCode="EVN" classCode="BATTERY& quot;> <templateId root="2.16.840.1.577526.10.20.22.4.1" /& gt; <id nullFlavor="NA" /> <code codeSystem=" local" code="ABG" displayName="ARTERIAL BLOOD GAS" /&gt ; <statusCodecode="completed" /> <component> <observation moodCode="EVN" classCode="OBS"> <templateId root="2.16.840.1.027142.10.20.22.4.2" /> <id nullFlavor="NA" /> <code codeSystem=" local" code="TED" displayName="ABG BASE EXCESS" /> <statusCode code="completed" /> < effectiveTime value="258052222676" /> <value unit=&quot ;meq/L" xsi:type="PQ" value="-4.4" /> < interpretationCode codeSystem="local" code="*" /> <referenceRange> <observationRange> < text>-3.0-3.0</text> </observationRange> < /referenceRange> </observation> </component> &lt ;component> <observation moodCode="EVN" classCode=" OBS"> <templateId root="2.16.840.1.989665.10.20.22.4.2& quot; /> <id nullFlavor="NA" /> <code codeSystem="local" code="HCO3A" displayName="ABG BICARBONATE" /> <statusCode code="completed" /&gt ; <effectiveTime value="823503099212" /> < value unit="meq/L" xsi:type="PQ" value="21.9" /&gt ; <interpretationCode codeSystem="local" code="*&quot ; /> <referenceRange> <observationRange> <text>23.0-28.0</text> </observationRange&gt ; </referenceRange> </observation> </component> <component> <observation moodCode="EVN" classCode="OBS"> <templateId root=" 2.16.840.1.593015.10.20.22.4.2" /> <id nullFlavor="NA& quot; /> <code codeSystem="local" code="PCO2A&quot ; displayName="ABG PCO2" /> <statusCode code=" completed" /> <effectiveTime value="159487181449" /> <value unit="mmHg" xsi:type="PQ" value=& quot;45" /> <referenceRange> < observationRange> <text>34-45</text> </ observationRange> </referenceRange> </observation&gt ; </component> <component> <observation moodCode ="EVN" classCode="OBS"> <templateId root=& quot;2.16.840.1.760995.10.20.22.4.2" /> <id nullFlavor=&quot ;NA" /> <code codeSystem="local" code="PHAX& quot; displayName="ABG PH" /> <statusCode code=" completed" /> <effectiveTime value="499718458164" /> <value unit="" xsi:type="PQ" value=" 7.30" /> <interpretationCode codeSystem="local" code=" *" /> <referenceRange> <observationRange&gt ; <text>7.35-7.45</text> </observationRange> </referenceRange> </observation> </component& gt; <component> <observation moodCode="EVN" classCode="OBS"> <templateId root=" 2.16.840.1.549053.10.20.22.4.2" /> <id nullFlavor="NA& quot; /> <code codeSystem="local" code="PO2A&quot ; displayName="ABG PO2" /> <statusCode code=" completed" /> <effectiveTime value="407373546123" / > <value unit="mmHg" xsi:type="PQ" value=& quot;89" /> <referenceRange> < observationRange> <text>75-100</text> &lt ;/observationRange> </referenceRange> </observation& gt; </component> <component> <observation moodCode="EVN" classCode="OBS"> <templateId root="2.16.840.1.603782.10.20.22.4.2" /> <id nullFlavor ="NA" /> <code codeSystem="local" code=" SATA" displayName="ABG O2 SATURATION" /> < statusCode code="completed" /> <effectiveTime value=& quot;138406761379" /> <value unit="%" xsi: type="PQ" value="96" /> <referenceRange> <observationRange> <text>93-100</text&gt ; </observationRange> </referenceRange> </ observation> </component> </organizer> </entry> & lt;entry> <organizer moodCode="EVN" classCode="BATTERY& quot;> <templateId root="2.16.840.1.206868.10.20.22.4.1" /& gt; <id nullFlavor="NA" /> <code codeSystem=" local" code="UC" displayName="URINE CULTURE" /> <statusCode code="completed" /> <component> <observation moodCode="EVN" classCode="OBS"> <templateId root="2.16.840.1.644585.10.20.22.4.2" /> & lt;id nullFlavor="NA" /> <code codeSystem="local& quot; code="MB" displayName="Microbiology" /> & lt;statusCode code="completed" /> <effectiveTime value= "078623325745" /> <value xsi:type="ST" value= "<pre><b>URINE CULTURE</b> See BelowURINE CULTURE(F) Aarti Date/Time: 04/03/2017 10:00 Mara Date/Time: // :SOURCE: URINESPEC DESC: CLEAN CATCHSee BelowURINE CULTURE(F) Aarti Date/Time: 04/03/2017 10:00 Mara Date/Time: 04/06/2017 09:37SOURCE: URINESPEC DESC: CLEAN CATCHTREATMENT OF ASYMPTOMATIC BACTERIURIA IS NOT USUALLYCLINICALLY INDICATED.Organism #1 ENTEROBACTER CLOACAE COMPLEXCOLONY COUNT >100,000 CFU/ML COMMENTS ESBL NOT CONFIRMED COMMENT 2 CARBAPENEMASE RESISTANCE NOT CONFIRMED InterpCEFEPIME VITEK <=1 RCIPROFLOXACIN VITEK <=0.25 SGENTAMICIN VITEK <=1 SMEROPENEM VITEK &amp ;lt;=0.25 RNITROFURANTOIN VITEK 64 IPIPERACILLIN/ TAZOBZCTAM VITEK 32 RTRIMETH/SULFA VITEK <=20 [facility] [place] [address]</pre>" /> <referenceRange> <observationRange> <text /> </observationRange> </ referenceRange> </observation> </component> </ organizer> </entry> <entry> <organizer moodCode="EVN " classCode="BATTERY"> <templateId root=" 2.16.840.1.712702.10.20.22.4.1" /> <id nullFlavor="NA&quot ; /> <code codeSystem="local" code="UA" displayName="URINALYSIS, ROUTINE" /> <statusCode code=&quot ;completed" /> <component> <observation moodCode=&quot ;EVN" classCode="OBS"> <templateId root=" 2.16.840.1.649031.10.20.22.4.2" /> <id nullFlavor="NA& quot; /> <code codeSystem="local" code="LEUESU& quot; displayName="UA LEUKOCYTE ESTERASE DIPSTICK" /> < statusCode code="completed" /> <effectiveTime value=& quot;908915718564" /> <value unit="" xsi:type=& quot;PQ" value="2+" /> <interpretationCode codeSystem="local" code="*" /> < referenceRange> <observationRange> <text> NEGATIVE</text> </observationRange> </ referenceRange> </observation> </component> < component> <observation moodCode="EVN" classCode=" OBS"> <templateId root="2.16.840.1.214312.10.20.22.4.2& quot; /> <id nullFlavor="NA" /> <code codeSystem="local" code="NITRIU" displayName="UA NITRITE DIPSTICK" /> <statusCode code="completed" /> <effectiveTime value="626919968477" /> & lt;value unit="" xsi:type="PQ" value="NEGATIVE" /& gt; <referenceRange> <observationRange> <text>NEGATIVE</text> </observationRange> </referenceRange> </observation> </component& gt; <component> <observation moodCode="EVN" classCode=& quot;OBS"> <templateId root=" 2.16.840.1.064758.10.20.22.4.2" /> <id nullFlavor="NA& quot; /> <code codeSystem="local" code="PROTEIU" displayName="UA PROTEIN DIPSTICK" /> <statusCode code=& quot;completed" /> <effectiveTime value="025875838193& quot; /> <value unit="" xsi:type="PQ" value=& quot;1+" /> <interpretationCode codeSystem="local&quot ; code="*" /> <referenceRange> < observationRange> <text>NEGATIVE</text> & lt;/observationRange> </referenceRange></observation> </component> <component> <observation moodCode=& quot;EVN" classCode="OBS"> <templateId root=" 2.16.840.1.490608.10.20.22.4.2" /> <id nullFlavor="NA& quot; /> <code codeSystem="local" code="DGLUU&quot ; displayName="UA GLUCOSE DIPSTICK" /> <statusCode code ="completed" /> <effectiveTime value="060730009305 " /> <value unit="" xsi:type="PQ" value= "NEGATIVE" /> <referenceRange> < observationRange> <text>NEGATIVE</text> & lt;/observationRange> </referenceRange> </ observation> </component> <component> < observation moodCode="EVN" classCode="OBS"> < templateId root="2.16.840.1.831965.10.20.22.4.2" /> < id nullFlavor="NA" /> <code codeSystem="local&quot ; code="KETONU" displayName="UA KETONE DIPSTICK" /> <statusCode code="completed" /> <effectiveTime value="641442113232" /> <value unit="" xsi:type ="PQ" value="TRACE" /> <interpretationCode codeSystem="local" code="*" /> < referenceRange> <observationRange> <text> NEGATIVE</text> </observationRange> </ referenceRange> </observation> </component> < component> <observation moodCode="EVN" classCode=" OBS"> <templateId root="2.16.840.1.420167.10.20.22.4.2& quot; /> <id nullFlavor="NA" /> <code codeSystem="local" code="UROBILU" displayName="UA UROBILINOGEN DIPSTICK" /> <statusCode code="completed& quot; /> <effectiveTime value="933777235660" /> <value unit="" xsi:type="PQ" value="NORMAL& quot; /> <referenceRange> <observationRange> <text>NORMAL</text> </observationRange& gt; </referenceRange> </observation> </ component> <component> <observation moodCode="EVN& quot; classCode="OBS"> <templateId root=" 2.16.840.1.388641.10.20.22.4.2" /> <id nullFlavor="NA& quot; /> <code codeSystem="local" code="BILU&quot ; displayName="UA BILIRUBIN DIPSTICK" /> <statusCode code="completed" /> <effectiveTime value=" 775903184342" /> <value unit="" xsi:type="PQ& quot; value="NEGATIVE" /> <referenceRange> < observationRange> <text>NEGATIVE</text> & lt;/observationRange> </referenceRange> </ observation> </component><component> <observation moodCode="EVN" classCode="OBS"> <templateId root=& quot;2.16.840.1.287369.10.20.22.4.2" /> <id nullFlavor=&quot ;NA" /> <code codeSystem="local" code="HILDA& quot; displayName="UA BLOOD DIPSTICK" /> <statusCode code="completed" /><effectiveTime value="238525687042&quot ; /> <value unit="" xsi:type="PQ" value=&quot ;TRACE" /> <interpretationCode codeSystem="local" code="*" /> <referenceRange> < observationRange> <text>NEGATIVE</text> </ observationRange> </referenceRange> </observation&gt ; </component> <component> <observation moodCode ="EVN" classCode="OBS"> <templateId root=& quot;2.16.840.1.834048.10.20.22.4.2" /> <id nullFlavor=&quot ;NA" /> <code codeSystem="local" code="SPGRU& quot; displayName="UA SPECIFIC GRAVITY" /> <statusCode code="completed" /> <effectiveTime value=" 994977401337" /> <value unit="" xsi:type="PQ& quot; value="1.015" /> <referenceRange> & lt;observationRange> <text>1.015-1.025</text> </observationRange> </referenceRange> </ observation> </component> <component> < observation moodCode="EVN" classCode="OBS"> < templateId root="2.16.840.1.686818.10.20.22.4.2" /> < id nullFlavor="NA" /> <code codeSystem="local&quot ; code="CLEMENTINE" displayName="UR PH" /> < statusCode code="completed" /> <effectiveTime value=& quot;944074600485" /> <value unit="" xsi:type=& quot;PQ" value="5.0" /><referenceRange> < observationRange> <text>5.0-7.0</text> & lt;/observationRange> </referenceRange> </ observation> </component> </organizer> </entry> & lt;entry> <organizer moodCode="EVN" classCode="BATTERY& quot;> <templateId root="2.16.840.1.984477.10.20.22.4.1" /& gt; <id nullFlavor="NA" /> <code codeSystem=" local" code="UAMICRO" displayName="UA MICROSCOPIC" /&gt ; <statusCode code="completed" /> <component> <observation moodCode="EVN" classCode="OBS"> <templateId root="[id number]" /> <id nullFlavor="NA" /> <code codeSystem=" local" code="BACU" displayName="UA BACTERIA" /> <statusCode code="completed" /> < effectiveTime value="[id number]" /> <value unit=&quot ;" xsi:type="PQ" value="2+" /> < interpretationCode codeSystem="local" code="*" /> <referenceRange> <observationRange> <text> NEGATIVE</text> </observationRange> </ referenceRange> </observation> </component>< component> <observation moodCode="EVN" classCode=" OBS"> <templateId root="[id number]" /> <id nullFlavor="NA" /> <code codeSystem="local" code="EPIU" displayName="UA EPITHELIAL CELLS" /> <statusCode code="completed" /> <effectiveTime value="401431071093" /> < value unit="epi/hpf" xsi:type="PQ" value="1+" /&gt ; <referenceRange> <observationRange> <text>0 - 1+</text> </observationRange> </referenceRange> </observation> </component> <component> <observation moodCode="EVN" classCode= "OBS"> <templateId root=" 2.16.840.1.695281.10.20.22.4.2" /> <id nullFlavor="NA& quot; /> <code codeSystem="local" code="RBCU&quot ; displayName="UA RBC" /> <statusCode code=" completed" /> <effectiveTime value="573675200145" /> <value unit="rbc/hpf" xsi:type="PQ" value= "0-3" /> <referenceRange> < observationRange> <text>0 - 3</text> </ observationRange> </referenceRange> </observation&gt ; </component> <component> <observation moodCode ="EVN" classCode="OBS"> <templateId root=& quot;2.16.840.1.473750.10.20.22.4.2" /> <id nullFlavor=&quot ;NA" /> <code codeSystem="local" code="UAVOL& quot; displayName="UA VOLUME FOR EXAM" /> <statusCode code="completed" /> <effectiveTime value=" 493556517183" /> <value unit="mL" xsi:type=" PQ" value="12.0" /> <referenceRange> <observationRange> <text>(12mL STD)</text> </observationRange> </referenceRange> </ observation> </component> <component> < observation moodCode="EVN" classCode="OBS"> < templateId root="2.16.840.1.413482.10.20.22.4.2" /> < id nullFlavor="NA" /> <code codeSystem="local&quot ; code="WBCU" displayName="UA WBC" /> < statusCode code="completed" /> <effectiveTime value=& quot;748626603991" /> <value unit="wbc/hpf" xsi: type="PQ" value="20-50" /> <interpretationCode codeSystem="local" code="*" /> < referenceRange> <observationRange> <text> 0 - 5</text> </observationRange> </referenceRange&gt ; </observation> </component> <component> <observation moodCode="EVN" classCode="OBS"> <templateId root="2.16.840.1.937428.10.20.22.4.2" />< id nullFlavor="NA" /> <code codeSystem="local&quot ; code="WBCCLUMPS" displayName="WBC CLUMPS" /> & lt;statusCode code="completed" /> <effectiveTime value= "973273428743" /> <value unit="" xsi:type=& quot;PQ" value="PRESENT" /> <interpretationCode codeSystem="local" code="*" /> < referenceRange> <observationRange> <text> NEGATIVE</text> </observationRange> </ referenceRange> </observation> </component> </ organizer> </entry> <entry> <organizer moodCode="EVN " classCode="BATTERY"> <templateId root=" 2.16.840.1.073923.10.20.22.4.1" /> <id nullFlavor="NA&quot ; /> <code codeSystem="local" code="GHGLUMON" displayName="GLUCOSE (POC)" /> <statusCode code=" completed" /> <component> <observation moodCode=& quot;EVN" classCode="OBS"> <templateId root=" 2.16.840.1.528775.10.20.22.4.2" /> <id nullFlavor="NA& quot; /> <code codeSystem="local" code="GHGLUMON& quot; displayName="GLUCOSE (POC)" /> <statusCode code=& quot;completed" /> <effectiveTime value="021868496170& quot; /> <value unit="mg/dL" xsi:type="PQ" value="214" /> <interpretationCode codeSystem=" local" code="*" /> <referenceRange> <observationRange> <text>70-99</text> & lt;/observationRange> </referenceRange> </ observation> </component> </organizer> </entry> & lt;entry> <organizer moodCode="EVN" classCode="BATTERY& quot;> <templateId root="2.16.840.1.837380.10.20.22.4.1" /& gt; <id nullFlavor="NA" /> <code codeSystem=" local" code="CARBAR" displayName="CARBAPENEMASE PCR" /& gt; <statusCode code="completed" /> <component> <observation moodCode="EVN" classCode="OBS"> <templateId root="2.16.840.1.562250.10.20.22.4.2" /> <id nullFlavor="NA" /> <code codeSystem=" local" code="MB" displayName="Microbiology" /> <statusCode code="completed" /> <effectiveTime value="820177925519" /> <value xsi:type="ST" value="<pre><b>CARBAPENEMASE PCR</b> See BelowCARBAPENEMASE PCR(F) Aarti Date/Time: 04/03/2017 12:56 Mara Date/Time: // :SOURCE: URINESPEC DESC: See BelowCARBAPENEMASE PCR(F) Aarti Date/Time: 04/03/2017 12:56 Mara Date/Time: 04/07/2017 07:56SOURCE: URINESPEC DESC: IMIPENEMASE CLASS MBLIMP TARGET DNA SEQUENCE NOT DETECTEDKLEPPNEUMO CARBAPENEMASEKPC TARGET DNA SEQUENCE NOT DETECTEDNEW DELHI METALLO-BLNDM TARGET DNA SEQUENCE NOT DETECTEDORGANISM:ENTEROBACTER CLOACAE COMPLEXCLASS D OXACILLINASEOXA-48 TARGET DNA SEQUENCE NOT DETECTEDVERONA INTEGRIN-MEDIATEDVIM TARGET DNA SEQUENCE NOT DETECTEDCHI [facility] [place] [address]</pre>" /> <referenceRange> < observationRange> <text /> </ observationRange> </referenceRange> </observation&gt ; </component> </organizer> </entry> <entry> <organizer moodCode="EVN" classCode="BATTERY"> <templateId root="2.16.840.1.328943.10.20.22.4.1" /> < id nullFlavor="NA" /> <code codeSystem="local" code="METAB" displayName="METABOLIC PANEL, BASIC" /> <statusCode code="completed" /> <component> < observation moodCode="EVN" classCode="OBS"> < templateId root="2.16.840.1.541786.10.20.22.4.2" /> < id nullFlavor="NA" /> <code codeSystem="local" code="K" displayName="POTASSIUM" /> < statusCode code="completed" /> <effectiveTime value=& quot;" /> <value unit="mmol/L" xsi: type="PQ" value="6.0" /> <interpretationCode codeSystem="local" code="*" /> < referenceRange> <observationRange> <text> 3.5-5.3</text> </observationRange> </ referenceRange> </observation> </component> < component> <observation moodCode="EVN" classCode=" OBS"> <templateId root="2.16.840.1.234765.10.20.22.4.2& quot; /> <id nullFlavor="NA" /> <code codeSystem="local" code="eGFR" displayName="EST GFR ( MDRD)" /> <statusCode code="completed" /> <effectiveTime value="648784168155" /> <value unit=&quot ;mL/min" xsi:type="PQ" value="15" /> < interpretationCode codeSystem="local" code="*" /> <referenceRange> <observationRange> < text>> 59</text> </observationRange> & lt;/referenceRange> </observation> </component> <component> <observation moodCode="EVN" classCode=& quot;OBS"> <templateId root=" 2.16.840.1.033680.10.20.22.4.2" /> <id nullFlavor="NA& quot; /> <code codeSystem="local" code="GAP" displayName="ANION GAP" /> <statusCode code=" completed" /> <effectiveTime value="406318792628" /&gt ; <value unit="mmol/L" xsi:type="PQ" value=&quot ;11" /> <referenceRange> <observationRange& gt; <text>5-15</text> </observationRange& gt; </referenceRange> </observation> </ component> <component> <observation moodCode="EVN& quot; classCode="OBS"> <templateId root=" 2.16.840.1.528568.10.20.22.4.2" /> <id nullFlavor="NA& quot; /> <code codeSystem="local" code="eCrCl&quot ; displayName="EST CrCl (CG)" /> <statusCode code=&quot ;completed" /> <effectiveTime value="194457351683&quot ; /> <value unit="mL/min" xsi:type="PQ" value ="23" /> <interpretationCode codeSystem="local& quot; code="*" /> <referenceRange> < observationRange> <text>> 59</text> </observationRange> </referenceRange> </ observation> </component> <component> < observation moodCode="EVN" classCode="OBS"> < templateId root="2.16.840.1.534132.10.20.22.4.2" /> < id nullFlavor="NA" /> <code codeSystem="local&quot ; code="GLU" displayName="GLUCOSE" /> < statusCode code="completed" /> <effectiveTime value=& quot;235569427219"/> <value unit="mg/dL" xsi:type= "PQ" value="257" /> <interpretationCode codeSystem="local" code="*" /> < referenceRange> <observationRange> <text> 70-99</text> </observationRange> </referenceRange& gt; </observation> </component> <component> <observation moodCode="EVN" classCode="OBS"> <templateId root="2.16.840.1.923816.10.20.22.4.2" /> & lt;id nullFlavor="NA" /> <code codeSystem="local& quot; code="CA" displayName="CALCIUM" /> < statusCode code="completed" /> <effectiveTime value=& quot;909959855595" /> <value unit="mg/dL" xsi:type ="PQ" value="9.0" /> <referenceRange>< observationRange> <text>8.5-10.1</text> & lt;/observationRange> </referenceRange> </ observation> </component> <component> < observation moodCode="EVN" classCode="OBS"> < templateId root="2.16.840.1.593693.10.20.22.4.2" /> < id nullFlavor="NA" /> <code codeSystem="local&quot ; code="BUN" displayName="BLOOD UREA NITROGEN" /> <statusCode code="completed" /> <effectiveTime value="682795031311" /> <value unit="mg/dL" xsi:type="PQ" value="69" /> < interpretationCode codeSystem="local" code="*" /> <referenceRange> <observationRange> <text >7-20</text> </observationRange> </ referenceRange> </observation> </component> < component> <observation moodCode="EVN" classCode=" OBS"> <templateId root="2.16.840.1.752541.10.20.22.4.2& quot; /> <id nullFlavor="NA" /> <code codeSystem="local" code="CREAT" displayName="CREATININE " /> <statusCode code="completed" /> < effectiveTime value="374892412277" /> <value unit=&quot ;mg/dL" xsi:type="PQ" value="3.1" /> < interpretationCode codeSystem="local" code="*" /> < referenceRange> <observationRange> <text> 0.6-1.0</text> </observationRange> </ referenceRange> </observation> </component> < component> <observation moodCode="EVN" classCode=" OBS"> <templateId root="2.16.840.1.309462.10.20.22.4.2& quot; /> <id nullFlavor="NA" /> <code codeSystem="local" code="NA" displayName="SODIUM" /> <statusCode code="completed" /> < effectiveTime value="735228388494" /> <value unit=&quot ;mmol/L" xsi:type="PQ" value="135" /> < referenceRange> <observationRange> <text> 135-148</text> </observationRange> </ referenceRange> </observation> </component> < component> <observation moodCode="EVN" classCode=" OBS"> <templateId root="2.16.840.1.782205.10.20.22.4.2& quot; /> <id nullFlavor="NA" /> <code codeSystem="local" code="CL" displayName="CHLORIDE&quot ; /> <statusCode code="completed" /> < effectiveTime value="099050467373" /> <value unit=&quot ;mmol/L" xsi:type="PQ" value="99" /> < referenceRange> <observationRange> <text> 98-110</text> </observationRange> </referenceRange& gt; </observation> </component> <component> <observation moodCode="EVN" classCode="OBS"> <templateId root="2.16.840.1.006212.10.20.22.4.2" /> <id nullFlavor="NA" /> <code codeSystem=&quot ;local" code="CO2" displayName="CARBON DIOXIDE" /> <statusCode code="completed" /> < effectiveTime value="781556779023" /> <value unit=&quot ;mmol/L" xsi:type="PQ" value="25" /> < referenceRange> <observationRange> <text>21-32& lt;/text> </observationRange> </referenceRange& gt; </observation> </component> </organizer> & lt;/entry> <entry> <organizer moodCode="EVN" classCode ="BATTERY"> <templateId root=" 2.16.840.1.990149.10.20.22.4.1" /> <id nullFlavor="NA&quot ; /> <code codeSystem="local" code="GHGLUMON" displayName="GLUCOSE (POC)" /> <statusCode code=" completed" /> <component> <observation moodCode=& quot;EVN" classCode="OBS"> <templateId root=" 2.16.840.1.015389.10.20.22.4.2" /> <id nullFlavor="NA& quot; /> <code codeSystem="local" code="GHGLUMON" displayName="GLUCOSE (POC)" /> <statusCode code=" completed" /> <effectiveTime value="222065100305" /> <value unit="mg/dL" xsi:type="PQ" value=& quot;281" /> <interpretationCode codeSystem="local&quot ; code="*" /> <referenceRange> < observationRange> <text>70-99</text> < /observationRange> </referenceRange> </observation& gt; </component> </organizer> </entry> <entry&gt ; <organizer moodCode="EVN" classCode="BATTERY"> <templateId root="2.16.840.1.639256.10.20.22.4.1" /> & lt;id nullFlavor="NA" /> <code codeSystem="local&quot ; code="GHGLUMON" displayName="GLUCOSE (POC)" />< statusCode code="completed" /> <component> < observation moodCode="EVN" classCode="OBS"> < templateId root="2.16.840.1.932057.10.20.22.4.2" /> < id nullFlavor="NA" /> <code codeSystem="local&quot ; code="GHGLUMON" displayName="GLUCOSE (POC)" /> <statusCode code="completed" /> <effectiveTime value="987772416630" /> <value unit="mg/dL" xsi:type="PQ" value="223" /> < interpretationCode codeSystem="local" code="*" /> <referenceRange> <observationRange> < text>70-99</text> </observationRange> </ referenceRange> </observation> </component> </ organizer> </entry> <entry> <organizer moodCode="EVN " classCode="BATTERY"> <templateId root=" 2.16.840.1.346993.10.20.22.4.1" /> <id nullFlavor="NA&quot ; /> <code codeSystem="local" code="GHGLUMON" displayName="GLUCOSE (POC)" /> <statusCode code=" completed" /> <component> <observation moodCode=& quot;EVN" classCode="OBS"> <templateId root=" 2.16.840.1.237872.10.20.22.4.2" /> <id nullFlavor="NA& quot; /> <code codeSystem="local" code="GHGLUMON& quot; displayName="GLUCOSE (POC)" /> <statusCode code=& quot;completed" /> <effectiveTime value="853265794789& quot; /> <value unit="mg/dL" xsi:type="PQ" value="223" /> <interpretationCode codeSystem=" local" code="*" /> <referenceRange> < observationRange> <text>70-99</text> < /observationRange> </referenceRange> </observation& gt; </component></organizer> </entry> <entry> <organizer moodCode="EVN" classCode="BATTERY"> & lt;templateId root="2.16.840.1.565860.10.20.22.4.1" /> <id nullFlavor="NA" /> <code codeSystem="local" code= "CBCD" displayName="CBC W/DIFF" /> <statusCode code="completed" /> <component> <observation moodCode="EVN" classCode="OBS"> <templateId root="2.16.840.1.247799.10.20.22.4.2" /> <id nullFlavor ="NA" /> <code codeSystem="local" code=" EO#" displayName="EOSINOPHIL #" /> <statusCode code="completed" /> <effectiveTime value=" 657291854530" /> <value unit="k/cumm" xsi:type=& quot;PQ" value="0.1" /> <referenceRange> <observationRange> <text>0.1-0.5</text> </observationRange> </referenceRange> </ observation> </component> <component> < observation moodCode="EVN" classCode="OBS"> < templateId root="2.16.840.1.010493.10.20.22.4.2" /> < id nullFlavor="NA"/> <code codeSystem="local&quot ; code="EO%" displayName="EOSINOPHIL %" /&gt ; <statusCode code="completed" /> < effectiveTime value="556957575141" /> <value unit=&quot ;%" xsi:type="PQ" value="1" /> < interpretationCode codeSystem="local" code="*" /> <referenceRange> <observationRange> < text>2-4</text> </observationRange> </ referenceRange> </observation> </component> < component> <observation moodCode="EVN" classCode=" OBS"> <templateId root="2.16.840.1.520709.10.20.22.4.2& quot; /> <id nullFlavor="NA" /> <code codeSystem="local" code="GR#" displayName="GRANULOCYTE #" /> <statusCode code="completed" /> < effectiveTime value="438179848569" /> <value unit=&quot ;k/cumm" xsi:type="PQ" value="12.1" /> < interpretationCode codeSystem="local" code="*" /> & lt;referenceRange> <observationRange> <text& gt;2.0-9.0</text> </observationRange> </ referenceRange> </observation> </component> < component> <observation moodCode="EVN" classCode=" OBS"> <templateId root="2.16.840.1.629559.10..22.4.2& quot; /> <id nullFlavor="NA" /> <code codeSystem="local" code="GR%" displayName=" GRANULOCYTE %" /> <statusCode code="completed& quot; /> <effectiveTime value="978487937079" /> <value unit="%" xsi:type="PQ" value=" 81" /> <interpretationCode codeSystem="local" code=& quot;*" /> <referenceRange> < observationRange> <text>50-75</text> </ observationRange> </referenceRange> </observation&gt ; </component> <component> <observation moodCode ="EVN" classCode="OBS"> <templateId root=& quot;2.16.840.1.006372.10.20.22.4.2" /> <id nullFlavor="NA&quot ; /> <code codeSystem="local" code="LY#" displayName="LYMPHOCYTE #" /> <statusCode code=" completed"/> <effectiveTime value="390518070542" / > <value unit="k/cumm" xsi:type="PQ" value=& quot;1.5" /> <referenceRange> <observationRange& gt; <text>1.0-4.0</text> </ observationRange> </referenceRange> </observation&gt ; </component> <component> <observation moodCode=& quot;EVN" classCode="OBS"> <templateId root=" 2.16.840.1.921270.10.20.22.4.2" /> <id nullFlavor="NA& quot; /> <code codeSystem="local" code="LY&#37 ;" displayName="LYMPHOCYTE %" /> < statusCode code="completed" /> <effectiveTime value=& quot;116969240938" /> <value unit="%" xsi: type="PQ" value="10" /> <interpretationCode codeSystem="local" code="*" /> < referenceRange> <observationRange> <text> 20-30</text> </observationRange> </referenceRange& gt; </observation> </component> <component> <observation moodCode="EVN" classCode="OBS"> <templateId root="2.16.840.1.991076.10.20.22.4.2" /> <id nullFlavor="NA" /> <code codeSystem=&quot ;local" code="MCH" displayName="MEAN CELLHGB" /> <statusCode code="completed" /> < effectiveTime value="802818448809" /> <value unit=&quot ;pg" xsi:type="PQ" value="28.4" /> < referenceRange> <observationRange> <text>27.0- 33.0</text> </observationRange> </ referenceRange> </observation> </component> < component> <observation moodCode="EVN" classCode=" OBS"> <templateId root="2.16.840.1.811654.10.20.22.4.2& quot; /> <id nullFlavor="NA" /> <code codeSystem="local" code="MCHC" displayName="MEAN CELL HGB CONCENTRATION" /> <statusCode code="completed&quot ; /> <effectiveTime value="951908639659" /> <value unit="g/dL" xsi:type="PQ" value="31.4&quot ; /> <interpretationCode codeSystem="local" code=" *" /> <referenceRange> <observationRange&gt ; <text>32.0-37.0</text> </ observationRange> </referenceRange> </observation> </component> <component> <observation moodCode=& quot;EVN" classCode="OBS"> <templateId root=" 216.840.1.426824.10.20.22.4.2" /> <id nullFlavor="NA& quot; /> <code codeSystem="local" code="MCV" displayName="MEAN CELL VOLUME" /> <statusCode code=& quot;completed" /> <effectiveTime value="337552076445& quot; /> <value unit="fl" xsi:type="PQ" value ="90.2" /> <referenceRange> < observationRange> <text>80.0-100.0</text> </observationRange> </referenceRange> </ observation> </component> <component> < observation moodCode="EVN" classCode="OBS"> < templateId root="2..840.1.557109.10.20.22.4.2" /> < id nullFlavor="NA" /> <code codeSystem="local&quot ; code="MO#" displayName="MONOCYTE #" /> < statusCode code="completed" /> <effectiveTime value=& quot;169776048820" /> <value unit="k/cumm" xsi: type="PQ" value="1.1" /> <interpretationCode codeSystem="local" code="*" /> < referenceRange> <observationRange> <text>0.1- 1.0</text> </observationRange> </ referenceRange> </observation> </component> < component> <observation moodCode="EVN" classCode=" OBS"> <templateId root="2.16.840.1.428193.10.20.22.4.2& quot; /> <id nullFlavor="NA" /> <code codeSystem="local" code="MO%" displayName=" MONOCYTE %" /> <statusCode code="completed&quot ; /> <effectiveTime value="636265179098" /> <value unit="%" xsi:type="PQ" value="8& quot; /> <interpretationCode codeSystem="local" code=& quot;*" /> <referenceRange> < observationRange> <text>4-6</text> </ observationRange> </referenceRange> </observation> & lt;/component> <component> <observation moodCode="EVN " classCode="OBS"> <templateIdroot=" 2.16.840.1.487814.10.20.22.4.2" /> <id nullFlavor="NA& quot; /> <code codeSystem="local" code="RBC" displayName="RED BLOOD CELL" /> <statusCode code=" completed" /> <effectiveTime value="549754123713" /> <value unit="m/cumm" xsi:type="PQ" value=& quot;3.28" /> <interpretationCode codeSystem="local& quot; code="*" /> <referenceRange> < observationRange> <text>4.00-6.00</text> </observationRange> </referenceRange> </observation& gt; </component> <component> <observation moodCode="EVN" classCode="OBS"> <templateId root="2.16.840.1.705197.10.20.22.4.2" /> <id nullFlavor ="NA" /> <code codeSystem="local" code=" RDW" displayName="RED CELL DISTRIBUTION WIDTH" /> < statusCode code="completed" /> <effectiveTime value=& quot;368722389951" /> <value unit="%" xsi: type="PQ" value="16.7" /> < interpretationCode codeSystem="local" code="*" /> <referenceRange> <observationRange> < text>11.0-15.6</text> </observationRange> &lt ;/referenceRange> </observation> </component> & lt;component> <observation moodCode="EVN" classCode=&quot ;OBS"> <templateId root="2.16.840.1.434143.10.20.22.4.2 " /> <id nullFlavor="NA" /> <code codeSystem="local" code="WBC" displayName="WHITE BLOOD CELL" /> <statusCode code="completed" /> <effectiveTime value="125128779709" /> <value unit=& quot;k/cumm" xsi:type="PQ" value="14.8" /> <interpretationCode codeSystem="local" code="*" /> <referenceRange> <observationRange> & lt;text>5.0-10.0</text></observationRange> </ referenceRange> </observation> </component> < component> <observation moodCode="EVN" classCode=" OBS"> <templateId root="2.16.840.1.640352.10.20.22.4.2& quot; /> <id nullFlavor="NA" /> <code codeSystem="local" code="HGBT" displayName="HEMOGLOBIN& quot; /> <statusCode code="completed" /> &lt ;effectiveTime value="281771632343" /> <value unit=& quot;gm/dL" xsi:type="PQ" value="9.3" /> & lt;interpretationCode codeSystem="local" code="*" /> <referenceRange> <observationRange> & lt;text>12.0-16.0</text> </observationRange> </ referenceRange> </observation> </component> < component> <observation moodCode="EVN" classCode="OBS "> <templateId root="2.16.840.1.950707.10.20.22.4.2& quot; /> <id nullFlavor="NA" /> <code codeSystem="local" code="HCTT" displayName="HEMATOCRIT& quot; /> <statusCode code="completed" /> & lt;effectiveTime value="107116615749" /> <value unit=& quot;%" xsi:type="PQ"value="29.6" /> <interpretationCode codeSystem="local" code="*" /> <referenceRange> <observationRange> <text>37.0-47.0</text> </observationRange> </referenceRange> </observation> </component> <component> <observation moodCode="EVN" classCode= "OBS"> <templateId root=" 2.16.840.1.783468.10.20.22.4.2" /> <id nullFlavor="NA& quot; /> <code codeSystem="local" code="PLTT&quot ; displayName="PLATELET COUNT" /> <statusCode code=& quot;completed" /> <effectiveTime value="364398168942& quot; /> <value unit="k/cumm" xsi:type="PQ" value="280" /> <referenceRange> < observationRange> <text>150-450</text> & lt;/observationRange> </referenceRange> </ observation> </component> </organizer> </entry> & lt;entry> <organizer moodCode="EVN" classCode="BATTERY& quot;> <templateId root="2.16.840.1.810572.10.20.22.4.1" /& gt; <id nullFlavor="NA" /> <code codeSystem=" local" code="METAB" displayName="METABOLIC PANEL, BASIC&quot ; /> <statusCode code="completed" /> <component> <observation moodCode="EVN" classCode="OBS"> <templateId root="2.16.840.1.822298.10.20.22.4.2" /> <id nullFlavor="NA" /> <code codeSystem=& quot;local" code="K" displayName="POTASSIUM" /> <statusCode code="completed" /> < effectiveTime value="304791100784" /> <value unit=" mmol/L" xsi:type="PQ" value="5.4" /> < interpretationCode codeSystem="local" code="*" /> <referenceRange> <observationRange> < text>3.5-5.3</text> </observationRange> </ referenceRange> </observation> </component> < component> <observation moodCode="EVN" classCode=" OBS"> <templateId root="2.16.840.1.459818.10.20.22.4.2& quot; /> <id nullFlavor="NA" /> <code codeSystem="local" code="eGFR" displayName="EST GFR ( MDRD)" /> <statusCode code="completed"/> <effectiveTime value="570522907285" /> <value unit="mL/min" xsi:type="PQ" value="16" /> <interpretationCode codeSystem="local" code="*" /&gt ; <referenceRange> <observationRange> <text>> 59</text> </observationRange> </referenceRange> </observation> </component& gt; <component> <observation moodCode="EVN" classCode="OBS"> <templateId root=" 2.16.840.1.952123.10.20.22.4.2" /> <id nullFlavor="NA& quot; /> <code codeSystem="local" code="GAP" displayName="ANION GAP" /> <statusCode code=" completed" /> <effectiveTimevalue="320718004031" / > <value unit="mmol/L" xsi:type="PQ" value=& quot;6" /> <referenceRange> < observationRange> <text>5-15</text> </ observationRange> </referenceRange> </observation&gt ; </component> <component> <observation moodCode ="EVN" classCode="OBS"> <templateId root=& quot;2.16.840.1.843687.10.20.22.4.2" /> <id nullFlavor=&quot ;NA" /> <code codeSystem="local" code="eCrCl& quot; displayName="EST CrCl (CG)" /> <statusCode code=&quot ;completed" /> <effectiveTime value="186699904817&quot ; /> <value unit="mL/min" xsi:type="PQ" value ="25" /> <interpretationCode codeSystem="local& quot; code="*" /> <referenceRange> < observationRange> <text>> 59</text> </observationRange> </referenceRange> </ observation> </component> <component> < observation moodCode="EVN" classCode="OBS"> < templateId root="[id number]" /> < id nullFlavor="NA" /> <code codeSystem="local&quot ; code="GLU" displayName="GLUCOSE" /> < statusCode code="completed" /> <effectiveTime value=& quot;[id number]" /> <value unit="mg/dL" xsi:type ="PQ" value="244" /> <interpretationCode codeSystem="local" code="*" /> < referenceRange> <observationRange> <text>70-99< /text> </observationRange> </referenceRange> </observation> </component> <component> <observation moodCode="EVN" classCode="OBS"> < templateId root="2.16.840.1.090565.10.20.22.4.2" /> < id nullFlavor="NA" /> <code codeSystem="local&quot ; code="CA" displayName="CALCIUM" /> < statusCode code="completed" /> <effectiveTime value=& quot;817053470926" /> <value unit="mg/dL" xsi:type ="PQ" value="9.5" /> <referenceRange> <observationRange> <text>8.5-10.1</text> </observationRange> </referenceRange> & lt;/observation> </component> <component> < observation moodCode="EVN" classCode="OBS"> < templateId root="2.16.840.1.207479.10..22.4.2" /> < id nullFlavor="NA" /> <code codeSystem="local" code=& quot;BUN" displayName="BLOOD UREA NITROGEN" /> < statusCode code="completed" /> <effectiveTime value=& quot;726499177678" /> <value unit="mg/dL" xsi:type ="PQ" value="73" /> <interpretationCode codeSystem="local" code="*" /> < referenceRange> <observationRange> <text> 7-20</text> </observationRange> </ referenceRange> </observation> </component> < component> <observation moodCode="EVN" classCode=" OBS"> <templateId root="2.16.840.1.776990.10.20.22.4.2& quot; /> <id nullFlavor="NA" /> <code codeSystem="local" code="CREAT" displayName="CREATININE " /> <statusCode code="completed" /> & lt;effectiveTime value="604100424786" /> <value unit="mg/dL " xsi:type="PQ" value="2.9" /> < interpretationCode codeSystem="local" code="*" /> <referenceRange> <observationRange> < text>0.6-1.0</text> </observationRange> </ referenceRange> </observation> </component> < component> <observation moodCode="EVN" classCode=" OBS"> <templateId root="2.16.840.1.117797.10.20.22.4.2& quot; /> <id nullFlavor="NA" /> <code codeSystem="local" code="NA" displayName="SODIUM" /> <statusCode code="completed" /> < effectiveTime value="758022277362" /> <value unit=&quot ;mmol/L" xsi:type="PQ" value="135" /> < referenceRange> <observationRange> <text> 135-148</text> </observationRange> </referenceRange > </observation> </component> <component> <observation moodCode="EVN" classCode="OBS"> <templateId root="2.16.840.1.990596.10.20.22.4.2" /> <id nullFlavor="NA" /> <code codeSystem=& quot;local" code="CL" displayName="CHLORIDE" /> <statusCode code="completed" /> < effectiveTime value="542126403971" /> <value unit=&quot ;mmol/L" xsi:type="PQ" value="101" /> < referenceRange> <observationRange> <text>98-110</ text> </observationRange> </referenceRange> </observation> </component> <component> <observation moodCode="EVN" classCode="OBS"> <templateId root="2.16.840.1.443517.10.20.22.4.2" /> <id nullFlavor="NA" /> <code codeSystem=" local" code="CO2" displayName="CARBON DIOXIDE" /> & lt;statusCode code="completed" /> <effectiveTime value= "433760347294" /> <value unit="mmol/L" xsi: type="PQ" value="28" /> <referenceRange> <observationRange> <text>21-32</text> </observationRange> </referenceRange> & lt;/observation> </component> </organizer> </entry&gt ; <entry> <organizer moodCode="EVN" classCode=" BATTERY"> <templateId root="2.16.840.1.689290.10.20.22.4.1& quot; /> <id nullFlavor="NA" /> <code codeSystem ="local" code="HBSAG" displayName="AG HEPATITIS B SURF. " /> <statusCode code="completed" /> <component > <observation moodCode="EVN" classCode="OBS"& gt; <templateId root="2.16.840.1.110827.10.20.22.4.2" /&gt ; <id nullFlavor="NA" /> <code codeSystem=& quot;local" code="HBSAG" displayName="AG HEPATITIS B SURF.& quot; /> <statusCode code="completed" /> < effectiveTime value="192832815647" /> <value unit=&quot ;" xsi:type="PQ" value="NEGATIVE" /> < referenceRange> <observationRange> <text> NEGATIVE</text> </observationRange> </ referenceRange> </observation> </component> </ organizer> </entry> <entry> <organizer moodCode="EVN " classCode="BATTERY"> <templateId root=" 2.16.840.1.580062.10.20.22.4.1" /> <id nullFlavor="NA&quot ; /> <codecodeSystem="local" code="HCVAB" displayName="AB HEPATITIS C" /> <statusCode code="completed " /> <component> <observation moodCode="EVN& quot; classCode="OBS"> <templateId root=" 2.16.840.1.558273.10.20.22.4.2" /> <id nullFlavor="NA& quot; /> <code codeSystem="local" code="HCVAB&quot ; displayName="AB HEPATITIS C" /> <statusCode code=& quot;completed" /> <effectiveTime value="861193539336& quot; /> <value unit="" xsi:type="PQ" value=& quot;NEGATIVE" /> <referenceRange> < observationRange> <text>NEGATIVE</text> & lt;/observationRange> </referenceRange> </ observation> </component> </organizer> </entry> & lt;entry> <organizer moodCode="EVN" classCode="BATTERY& quot;> <templateId root="2.16.840.1.177947.10.20.22.4.1" /& gt; <id nullFlavor="NA" /> <code codeSystem=" local" code="HIV" displayName="HIV" /> < statusCode code="completed" /> <component> < observation moodCode="EVN" classCode="OBS"> < templateId root="2.16.840.1.849244.10.20.22.4.2"/> <id nullFlavor="NA" /> <code codeSystem="local" code="[id number]" displayName="AB HIV 1 2" /> & lt;statusCode code="completed" /> <effectiveTime value= "341651340398" /> <value unit="" xsi:type=& quot;PQ" value="NEGATIVE" /> <referenceRange> <observationRange> <text>NEGATIVE</text& gt; </observationRange> </referenceRange> </ observation> </component> <component> < observation moodCode="EVN" classCode="OBS"> < templateId root="2.16.840.1.255920.10..22.4.2" /> <id nullFlavor="NA" /> <code codeSystem="local" code="[id number]" displayName="HIV 1 P24 AG" /> & lt;statusCode code="completed" /> <effectiveTime value= "080579326530" /> <value unit="" xsi:type=& quot;PQ" value="NEGATIVE" /> <referenceRange> <observationRange> <text>NEGATIVE</text& gt; </observationRange> </referenceRange> </observation> </component> </organizer> </entry > <entry> <organizer moodCode="EVN" classCode=" BATTERY"> <templateId root="2.16.840.1.353681.10.20.22.4.1& quot; /> <id nullFlavor="NA" /> <code codeSystem ="local" code="GHGLUMON" displayName="GLUCOSE (POC)& quot; /> <statusCode code="completed" /> < component> <observation moodCode="EVN" classCode=" OBS"> <templateId root="216.840.1.002924.10.20.22.4.2& quot; /> <id nullFlavor="NA" /> <code codeSystem="local" code="GHGLUMON" displayName=" GLUCOSE (POC)" /> <statusCode code="completed" /& gt; <effectiveTime value="686136848609" /> &lt ;value unit="mg/dL" xsi:type="PQ" value="230" /&gt ; <interpretationCode codeSystem="local" code="*&quot ; /> <referenceRange> <observationRange> <text>70-99</text> </observationRange> </referenceRange> </observation> </component&gt ; </organizer> </entry> <entry> <organizer moodCode ="EVN" classCode="BATTERY"> <templateId root=& quot;2.16.840.1.546827.10.20.22.4.1" /> <id nullFlavor="NA& quot; /> <code codeSystem="local" code="GHGLUMON&quot ; displayName="GLUCOSE (POC)" /> <statusCode code=" completed" /> <component> <observation moodCode=& quot;EVN" classCode="OBS"> <templateId root=" 2.16.840.1.582672.10.20.22.4.2" /> <id nullFlavor="NA& quot; /> <code codeSystem="local" code="GHGLUMON& quot; displayName="GLUCOSE (POC)" /> <statusCode code=& quot;completed" /> <effectiveTime value="749437894909& quot; /> <value unit="mg/dL" xsi:type="PQ" value="205" /> <interpretationCode codeSystem=" local" code="*" /> <referenceRange> <observationRange> <text>70-99</text> &lt ;/observationRange> </referenceRange> </observation& gt; </component> </organizer> </entry> <entry> <organizer moodCode="EVN" classCode="BATTERY"> <templateId root="2.16.840.1.880128.10.20.22.4.1" /> &lt ;id nullFlavor="NA" /> <code codeSystem="local" code="GHGLUMON" displayName="GLUCOSE (POC)" /> < statusCode code="completed" /> <component> < observation moodCode="EVN" classCode="OBS"> < templateId root="2.16.840.1.702356.10.20.22.4.2" /> < id nullFlavor="NA" /> <code codeSystem="local" code="GHGLUMON" displayName="GLUCOSE (POC)" /> & lt;statusCode code="completed" /> <effectiveTime value= "234584337638" /> <value unit="mg/dL" xsi: type="PQ" value="173" /> <interpretationCode codeSystem="local" code="*" /> < referenceRange> <observationRange> <text> 70-99</text> </observationRange> </ referenceRange> </observation> </component> </ organizer> </entry> <entry> <organizer moodCode="EVN " classCode="BATTERY"> <templateId root=" 2.16.840.1.453542.10.20.22.4.1" /> <id nullFlavor="NA&quot ; /> <codecodeSystem="local" code="GHGLUMON" displayName="GLUCOSE (POC)" /> <statusCode code=" completed" /> <component> <observation moodCode=& quot;EVN" classCode="OBS"> <templateId root=" 2.16.840.1.291886.10.20.22.4.2" /> <id nullFlavor="NA& quot; /> <code codeSystem="local" code="GHGLUMON& quot; displayName="GLUCOSE (POC)" /><statusCode code=" completed" /> <effectiveTime value="459855548568" /> <value unit="mg/dL" xsi:type="PQ" value=& quot;127" /> <interpretationCode codeSystem="local&quot ; code="*" /> <referenceRange> < observationRange> <text>70-99</text> </ observationRange> </referenceRange> </observation&gt ; </component> </organizer> </entry> <entry> & lt;organizer moodCode="EVN" classCode="BATTERY"> &lt ;templateId root="2.16.840.1.768425.10.20.22.4.1" /> <id nullFlavor="NA" /> <code codeSystem="local" code= "CBC" displayName="CBC" /> <statusCode code=&quot ;completed" /> <component> <observation moodCode=& quot;EVN" classCode="OBS"> <templateId root=" 2.16.840.1.672302.10.20.22.4.2" /> <id nullFlavor="NA" /&gt ; <code codeSystem="local" code="MCH" displayName="MEAN CELL HGB" /> <statusCode code=" completed" /> <effectiveTime value="941724060577" /> <value unit="pg" xsi:type="PQ" value=&quot ;28.1" /> <referenceRange> <observationRange> <text>27.0-33.0</text> </observationRange& gt; </referenceRange> </observation> </ component> <component> <observation moodCode="EVN&quot ; classCode="OBS"> <templateId root=" 2.16.840.1.581434.10.20.22.4.2" /> <id nullFlavor="NA& quot; /> <code codeSystem="local" code="MCHC&quot ; displayName="MEAN CELL HGB CONCENTRATION" /> < statusCode code="completed" /> <effectiveTime value=& quot;111976959141" /> <value unit="g/dL" xsi:type= "PQ" value="30.5" /> <interpretationCode codeSystem="local" code="*" /> < referenceRange> <observationRange> <text> 32.0-37.0</text> </observationRange> </ referenceRange> </observation> </component> < component> <observation moodCode="EVN" classCode=" OBS"> <templateId root="2.16.840.1.772733.10.20.22.4.2& quot; /> <id nullFlavor="NA"/> <code codeSystem="local" code="MCV" displayName="MEAN CELL VOLUME" /> <statusCode code="completed" /> <effectiveTime value="147889881479" /> <value unit="fl" xsi:type="PQ" value="92.1" /> <referenceRange> <observationRange> <text >80.0-100.0</text> </observationRange> </ referenceRange> </observation> </component> < component> <observation moodCode="EVN" classCode=" OBS"> <templateId root="2.16.840.1.509025.10.20.22.4.2& quot; /> <id nullFlavor="NA" /> <code codeSystem= "local" code="RBC" displayName="RED BLOOD CELL" /& gt; <statusCode code="completed" /> < effectiveTime value="721864105440" /> <value unit=&quot ;m/cumm" xsi:type="PQ" value="2.67" /> < interpretationCode codeSystem="local" code="*" /> <referenceRange> <observationRange> < text>4.00-6.00</text> </observationRange> &lt ;/referenceRange> </observation> </component> & lt;component> <observation moodCode="EVN" classCode=&quot ;OBS"> <templateId root="2.16.840.1.375158.10.20.22.4.2 " /> <id nullFlavor="NA" /> <code codeSystem="local" code="RDW" displayName="RED CELL DISTRIBUTION WIDTH" /> <statusCode code="completed&quot ; /> <effectiveTime value="552638518627" /> <value unit="%" xsi:type="PQ" value="16.7& quot; /> <interpretationCode codeSystem="local" code=& quot;*" /> <referenceRange> <observationRange> <text>11.0-15.6</text> </observationRange& gt; </referenceRange> </observation> </ component> <component> <observation moodCode="EVN& quot; classCode="OBS"> <templateId root=" 2.16.840.1.475500.10.20.22.4.2" /> <id nullFlavor="NA& quot; /> <code codeSystem="local" code="WBC" displayName="WHITE BLOOD CELL" /> <statusCode code=& quot;completed" /> <effectiveTime value="428360651781& quot; /> <value unit="k/cumm" xsi:type="PQ" value="10.1" /> <interpretationCode codeSystem=" local" code="*" /> <referenceRange> &lt ;observationRange> <text>5.0-10.0</text> </observationRange> </referenceRange> </ observation> </component> <component> < observation moodCode="EVN" classCode="OBS"> < templateId root="2.16.840.1.508509.10.20.22.4.2" /> < id nullFlavor="NA" /> <code codeSystem="local&quot ; code="HGBT" displayName="HEMOGLOBIN" /> < statusCode code="completed" /><effectiveTime value=" 002737901698" /> <value unit="gm/dL" xsi:type=& quot;PQ" value="7.5" /> <interpretationCode codeSystem="local" code="*" /> < referenceRange> <observationRange> <text> 12.0-16.0</text> </observationRange> </ referenceRange> </observation> </component> < component> <observation moodCode="EVN" classCode=" OBS"> <templateId root="2.16.840.1.565092.10.20.22.4.2& quot; /> <id nullFlavor="NA" /> <code codeSystem ="local" code="HCTT" displayName="HEMATOCRIT" /&gt ; <statusCode code="completed" /> < effectiveTime value="998867707489" /> <value unit=&quot ;%" xsi:type="PQ" value="24.6" /> & lt;interpretationCode codeSystem="local" code="*" /> <referenceRange> <observationRange> & lt;text>37.0-47.0</text> </observationRange> </referenceRange> </observation> </component> <component> <observation moodCode="EVN" classCode=& quot;OBS"> <templateId root=" 2.16.840.1.946276.10.20.22.4.2" /> <id nullFlavor="NA& quot; /> <code codeSystem="local" code="PLTT&quot ; displayName="PLATELET COUNT" /> <statusCode code=& quot;completed" /> <effectiveTime value="234734112623& quot; /> <value unit="k/cumm" xsi:type="PQ" value="224" /> <referenceRange> < observationRange> <text>150-450</text> & lt;/observationRange> </referenceRange> </ observation> </component> </organizer> </entry> & lt;entry> <organizer moodCode="EVN" classCode="BATTERY& quot;> <templateId root="2.16.840.1.848513.10.20.22.4.1" /& gt; <id nullFlavor="NA" /> <code codeSystem=" local" code="METAB" displayName="METABOLIC PANEL, BASIC&quot ; /> <statusCode code="completed" /> <component& gt; <observation moodCode="EVN" classCode="OBS"&gt ; <templateId root="2.16.840.1.872161.10.20.22.4.2" /> <id nullFlavor="NA" /> <code codeSystem=& quot;local" code="K" displayName="POTASSIUM" /> <statusCode code="completed" /> < effectiveTime value="024761314277" /> <value unit=&quot ;mmol/L" xsi:type="PQ" value="5.2" /> < referenceRange> <observationRange> <text> 3.5-5.3</text> </observationRange> </ referenceRange> </observation> </component> < component> <observation moodCode="EVN" classCode=" OBS"> <templateId root="2.16.840.1.915124.10.20.22.4.2& quot; /> <id nullFlavor="NA" /> <code codeSystem="local" code="eGFR" displayName="EST GFR ( MDRD)" /> <statusCode code="completed" /> <effectiveTime value="544618637857" /> <value unit="mL/min" xsi:type="PQ" value="15" /> <interpretationCodecodeSystem="local" code="*" /&gt ; <referenceRange> <observationRange> <text>> 59</text> </observationRange> </referenceRange> </observation> </component& gt; <component> <observation moodCode="EVN" classCode="OBS"><templateId root=" 2.16.840.1.553642.10.20.22.4.2" /> <id nullFlavor="NA& quot; /> <code codeSystem="local" code="GAP" displayName="ANION GAP" /> <statusCode code=" completed" /> <effectiveTime value="236084898330" /> <value unit="mmol/L" xsi:type="PQ" value=& quot;7" /> <referenceRange> < observationRange> <text>5-15</text> </ observationRange> </referenceRange> </observation&gt ; </component> <component> <observation moodCode ="EVN" classCode="OBS"> <templateId root=& quot;2.16.840.1.344341.10.20.22.4.2" /> <id nullFlavor=&quot ;NA" /> <code codeSystem="local" code="eCrCl& quot; displayName="EST CrCl (CG)" /> <statusCode code=& quot;completed" /> <effectiveTime value="512767836210& quot; /> <value unit="mL/min" xsi:type="PQ" value="23" /> <interpretationCode codeSystem=" local" code="*" /> <referenceRange> <observationRange> <text>> 59</text> </observationRange> </referenceRange> </ observation> </component> <component> < observation moodCode="EVN" classCode="OBS"> < templateId root="2.16.840.1.173191.10.20.22.4.2" /> < id nullFlavor="NA" /> <code codeSystem="local&quot ; code="GLU" displayName="GLUCOSE" /> < statusCode code="completed" /> <effectiveTime value=& quot;403758007717" /> <value unit="mg/dL" xsi:type ="PQ" value="110" /> <interpretationCode codeSystem="local" code="*" /> < referenceRange> <observationRange> <text>70- 99</text> </observationRange> </ referenceRange> </observation> </component> < component> <observation moodCode="EVN" classCode=" OBS"> <templateId root="2.16.840.1.182496.10.20.22.4.2& quot; /> <id nullFlavor="NA" /> <code codeSystem="local" code="CA" displayName="CALCIUM&quot ; /> <statusCode code="completed" /> < effectiveTime value="268265861641" /> <value unit=&quot ;mg/dL" xsi:type="PQ" value="8.3" /> < interpretationCode codeSystem="local"code="*" /> <referenceRange> <observationRange> <text>8.5 -10.1</text> </observationRange> </ referenceRange> </observation> </component> < component> <observation moodCode="EVN" classCode=" OBS"> <templateId root="2.16.840.1.485024.10.20.22.4.2& quot; /> <id nullFlavor="NA" /> <code codeSystem="local" code="BUN" displayName="BLOOD UREA NITROGEN" /> <statusCode code="completed" /> <effectiveTime value="954320954435" /> < value unit="mg/dL" xsi:type="PQ" value="76" /> <interpretationCode codeSystem="local" code="*&quot ; /> <referenceRange> <observationRange> <text>7-20</text> </observationRange> </referenceRange> </observation> </component> <component> <observation moodCode="EVN" classCode="OBS"> <templateId root=" 2.16.840.1.106323.10.20.22.4.2"/> <id nullFlavor="NA& quot; /> <code codeSystem="local"code="CREAT&quot ; displayName="CREATININE" /> <statusCode code=" completed" /> <effectiveTime value="731277881620" /> <value unit="mg/dL" xsi:type="PQ" value=& quot;3.1" /> <interpretationCode codeSystem="local&quot ; code="*" /> <referenceRange> < observationRange> <text>0.6-1.0</text> & lt;/observationRange> </referenceRange> </ observation> </component><component> <observation moodCode="EVN" classCode="OBS"> <templateId root=& quot;2.16.840.1.431476.10.20.22.4.2" /> <id nullFlavor=&quot ;NA" /> <code codeSystem="local" code="NA& quot; displayName="SODIUM" /> <statusCode code=" completed" /> <effectiveTime value="874949133241" /> <value unit="mmol/L" xsi:type="PQ" value=& quot;137" /> <referenceRange> < observationRange> <text>135-148</text> & lt;/observationRange> </referenceRange> </ observation> </component> <component><observation moodCode="EVN" classCode="OBS"> <templateId root="2.16.840.1.848055.10.20.22.4.2" /> <id nullFlavor ="NA" /> <code codeSystem="local" code="CL& quot; displayName="CHLORIDE" /> <statusCode code=" completed" /> <effectiveTime value="792184504353" /> <value unit="mmol/L" xsi:type="PQ" value=& quot;104" /> <referenceRange> < observationRange> <text>98-110</text> &lt ;/observationRange> </referenceRange> </observation> </component> <component> <observation moodCode=& quot;EVN" classCode="OBS"> <templateId root=" 2.16.840.1.082144.10.20.22.4.2" /> <id nullFlavor="NA& quot; /> <code codeSystem="local" code="CO2" displayName="CARBON DIOXIDE" /> <statusCode code=" completed" /> <effectiveTime value="255114226874" /> <value unit="mmol/L" xsi:type="PQ" value=& quot;26" /> <referenceRange> <observationRange& gt; <text>21-32</text> </observationRange > </referenceRange> </observation> </ component> </organizer> </entry> <entry> < organizer moodCode="EVN" classCode="BATTERY"> < templateId root="2.16.840.1.931211.10.20.22.4.1" /> <id nullFlavor="NA" /> <code codeSystem="local" code= "GHGLUMON" displayName="GLUCOSE (POC)" /> < statusCode code="completed" /> <component> < observation moodCode="EVN" classCode="OBS"> < templateId root="2.16.840.1.614565.10.20.22.4.2" /> < id nullFlavor="NA" /> <code codeSystem="local&quot ; code="GHGLUMON" displayName="GLUCOSE (POC)" /> <statusCode code="completed" /> <effectiveTime value="127933570991" /> <value unit="mg/dL" xsi: type="PQ" value="176" /> <interpretationCode codeSystem="local" code="*" /> < referenceRange> <observationRange> <text> 70-99</text> </observationRange> </ referenceRange> </observation> </component> </ organizer> </entry> <entry> <organizer moodCode="EVN " classCode="BATTERY"> <templateId root=" 2.16.840.1.475034.10.20.22.4.1" /> <id nullFlavor="NA&quot ; /> <code codeSystem="local" code="GHGLUMON" displayName="GLUCOSE (POC)" /> <statusCode code=" completed" /> <component> <observation moodCode=& quot;EVN" classCode="OBS"> <templateId root=" 2.16.840.1.457578.10.20.22.4.2" /> <id nullFlavor="NA" /& gt; <code codeSystem="local" code="GHGLUMON" displayName="GLUCOSE (POC)" /> <statusCode code=" completed" /> <effectiveTime value="353940244633" /> <value unit="mg/dL" xsi:type="PQ" value=& quot;162" /> <interpretationCode codeSystem="local&quot ; code="*" /> <referenceRange> < observationRange> <text>70-99</text> < /observationRange> </referenceRange> </observation& gt; </component> </organizer> </entry> <entry&gt ; <organizer moodCode="EVN" classCode="BATTERY"> <templateId root="2.16.840.1.714465.10.20.22.4.1" /> & lt;id nullFlavor="NA" /> <code codeSystem="local&quot ; code="GHGLUMON" displayName="GLUCOSE (POC)" /> &lt ;statusCode code="completed" /><component> < observation moodCode="EVN" classCode="OBS"> < templateId root="2.16.840.1.262074.10.20.22.4.2" /> < id nullFlavor="NA" /> <code codeSystem="local&quot ; code="GHGLUMON" displayName="GLUCOSE (POC)" /> <statusCode code="completed" /> <effectiveTime value=" 824728062263" /> <value unit="mg/dL" xsi:type=& quot;PQ" value="138" /> <interpretationCode codeSystem="local" code="*" /> < referenceRange> <observationRange> <text> 70-99</text> </observationRange> </ referenceRange> </observation> </component> </ organizer> </entry> <entry> <organizer moodCode="EVN " classCode="BATTERY"> <templateId root=" 2.16.840.1.151307.10.20.22.4.1" /> <id nullFlavor="NA&quot ; /> <code codeSystem="local" code="METAB" displayName="METABOLIC PANEL, BASIC" /> <statusCode code=& quot;completed" /> <component> <observation moodCode="EVN" classCode="OBS"> <templateId root="2.16.840.1.391534.10.20.22.4.2" /> <id nullFlavor ="NA" /> <code codeSystem="local" code=" K" displayName="POTASSIUM" /> <statusCode code=& quot;completed" /> <effectiveTime value="980053205983& quot; /> <value unit="mmol/L" xsi:type="PQ" value="5.3" /> <referenceRange> < observationRange> <text>3.5-5.3</text> </ observationRange> </referenceRange> </observation&gt ; </component> <component> <observation moodCode ="EVN" classCode="OBS"> <templateId root=& quot;2.16.840.1.929429.10.20.22.4.2" /> <id nullFlavor=&quot ;NA" /> <codecodeSystem="local" code="eGFR& quot; displayName="EST GFR (MDRD)" /> <statusCode code=" completed" /> <effectiveTime value="820763421212" /> <value unit="mL/min" xsi:type="PQ" value=& quot;17" /> <interpretationCode codeSystem="local&quot ; code="*" /> <referenceRange> < observationRange> <text>> 59</text> </observationRange> </referenceRange> </ observation> </component> <component> < observation moodCode="EVN" classCode="OBS"> < templateId root="2.16.840.1.093743.10..22.4.2" /> < id nullFlavor="NA" /> <code codeSystem="local&quot ; code="GAP" displayName="ANION GAP" /> < statusCode code="completed" /> <effectiveTime value=& quot;686829833201" /> <value unit="mmol/L" xsi: type="PQ" value="9" /> <referenceRange> <observationRange> <text>5-15</text> </observationRange> </referenceRange> < /observation> </component> <component> < observation moodCode="EVN" classCode="OBS"> < templateId root="[id number]" /> < id nullFlavor="NA" /> <code codeSystem="local&quot ; code="eCrCl" displayName="EST CrCl (CG)" /> & lt;statusCode code="completed" /> <effectiveTime value=& quot;[id number]" /> <value unit="mL/min" xsi: type="PQ" value="27" /> <interpretationCode codeSystem="local" code="*" /> < referenceRange> <observationRange> <text> > 59</text> </observationRange> </ referenceRange> </observation> </component> < component> <observation moodCode="EVN" classCode=" OBS"> <templateId root="[id number]& quot; /> <id nullFlavor="NA" /> <code codeSystem="local" code="GLU" displayName="GLUCOSE&quot ; /> <statusCode code="completed" /> < effectiveTime value="689488185225" /> <value unit=&quot ;mg/dL" xsi:type="PQ" value="107" /> < interpretationCode codeSystem="local" code="*"/> <referenceRange> <observationRange> < text>70-99</text> </observationRange> </ referenceRange> </observation> </component> < component> <observation moodCode="EVN" classCode=" OBS"> <templateId root="2.16.840.1.338779.10..22.4.2& quot; /> <id nullFlavor="NA" /> <code codeSystem="local" code="CA" displayName="CALCIUM&quot ; /> <statusCode code="completed" /> < effectiveTime value="091928928843" /> <value unit=&quot ;mg/dL" xsi:type="PQ" value="8.5" /> < referenceRange> <observationRange> <text> 8.5-10.1</text> </observationRange> </referenceRange& gt; </observation> </component> <component> <observation moodCode="EVN" classCode="OBS"> <templateId root="2.16.840.1.810610.10.20.22.4.2" />< id nullFlavor="NA" /> <code codeSystem="local&quot ; code="BUN" displayName="BLOOD UREA NITROGEN" /> <statusCode code="completed" /> <effectiveTime value="670505609197" /> <value unit="mg/dL" xsi:type="PQ" value="85" /> < interpretationCode codeSystem="local" code="*" /> <referenceRange> <observationRange> < text>7-20</text> </observationRange> </ referenceRange> </observation> </component> < component> <observation moodCode="EVN" classCode=" OBS"> <templateId root="2.16.840.1.176032.10.20.22.4.2& quot; /> <id nullFlavor="NA" /> <code codeSystem="local" code="CREAT" displayName="CREATININE " /> <statusCode code="completed" /> & lt;effectiveTime value="942264312974" /> <value unit=& quot;mg/dL" xsi:type="PQ" value="2.7" /> & lt;interpretationCode codeSystem="local" code="*" /> <referenceRange> <observationRange> & lt;text>0.6-1.0</text> </observationRange> & lt;/referenceRange> </observation> </component> &lt ;component> <observation moodCode="EVN" classCode=" OBS"> <templateId root="2.16.840.1.359693.10.20.22.4.2& quot; /> <id nullFlavor="NA" /> <code codeSystem="local" code="NA" displayName="SODIUM" /> <statusCode code="completed" /> < effectiveTime value="265937479658" /> <value unit=" mmol/L" xsi:type="PQ" value="135" />< referenceRange> <observationRange> <text> 135-148</text> </observationRange> </ referenceRange> </observation> </component> < component> <observation moodCode="EVN" classCode=" OBS"> <templateId root="2.16.840.1.021793.10.20.22.4.2& quot; /> <id nullFlavor="NA" /> <code codeSystem="local" code="CL" displayName="CHLORIDE&quot ; /> <statusCode code="completed" /> < effectiveTime value="848489340605" /> <value unit=&quot ;mmol/L" xsi:type="PQ" value="103" /> < referenceRange> <observationRange> <text> 98-110</text> </observationRange> </ referenceRange> </observation> </component> < component> <observation moodCode="EVN" classCode=" OBS"> <templateId root="2.16.840.1.006065.10.20.22.4.2& quot; /> <id nullFlavor="NA" /> <code codeSystem="local" code="CO2" displayName="CARBON DIOXIDE" /> <statusCode code="completed" /> & lt;effectiveTime value="525427724938" /> <value unit=& quot;mmol/L"xsi:type="PQ" value="23" /> &lt ;referenceRange> <observationRange> <text&gt ;21-32</text> </observationRange> </ referenceRange> </observation> </component> </ organizer> </entry> <entry> <organizer moodCode="EVN " classCode="BATTERY"> <templateId root=" 2.16.840.1.091180.10.20.22.4.1" /> <id nullFlavor="NA&quot ; /> <code codeSystem="local" code="CBC" displayName="CBC" /> <statusCode code="completed&quot ; /> <component> <observation moodCode="EVN" classCode="OBS"> <templateIdroot=" 2.16.840.1.567519.10.20.22.4.2" /> <id nullFlavor="NA& quot; /> <code codeSystem="local" code="MCH" displayName="MEAN CELL HGB" /> <statusCode code=" completed" /> <effectiveTime value="083962659230" /> <value unit="pg" xsi:type="PQ" value=&quot ;28.2" /> <referenceRange> < observationRange> <text>27.0-33.0</text> </ observationRange> </referenceRange> </observation&gt ; </component> <component> <observation moodCode ="EVN" classCode="OBS"> <templateId root=& quot;2.16.840.1.008037.10.20.22.4.2" /> <id nullFlavor=&quot ;NA" /> <code codeSystem="local" code="MCHC& quot; displayName="MEAN CELL HGB CONCENTRATION" /> < statusCode code="completed" /> <effectiveTime value=& quot;532782946632" /> <value unit="g/dL" xsi:type= "PQ" value="30.9" /> <interpretationCode codeSystem="local" code="*" /> < referenceRange> <observationRange> <text> 32.0-37.0</text> </observationRange> </ referenceRange> </observation> </component> < component> <observation moodCode="EVN" classCode=" OBS"> <templateId root="2.16.840.1.310072.10.20.22.4.2& quot; /> <id nullFlavor="NA" /> <code codeSystem="local" code="MCV" displayName="MEAN CELL VOLUME" /> <statusCode code="completed" /> <effectiveTime value="225288667952" /> <value unit="fl" xsi:type="PQ" value="91.4" /> < referenceRange> <observationRange> <text> 80.0-100.0</text> </observationRange> </ referenceRange> </observation> </component> < component> <observation moodCode="EVN" classCode=" OBS"> <templateId root="2.16.840.1.763804.10.20.22.4.2& quot;/> <id nullFlavor="NA" /> <code codeSystem="local"code="RBC" displayName="RED BLOOD CELL" /> <statusCode code="completed" /> <effectiveTime value="129788531183" /> <value unit="m/cumm" xsi:type="PQ" value="2.80" /> <interpretationCode codeSystem="local" code="*" /& gt; <referenceRange> <observationRange> <text>4.00-6.00</text> </observationRange> </referenceRange> </observation> </component> <component> <observation moodCode="EVN" classCode="OBS"> <templateId root=" 2.16.840.1.822807.10.20.22.4.2" /> <id nullFlavor="NA& quot; /> <code codeSystem="local" code="RDW" displayName="RED CELL DISTRIBUTION WIDTH" /> < statusCode code="completed" /> <effectiveTime value=& quot;536500657214" /> <value unit="%" xsi: type="PQ" value="16.6" /> < interpretationCodecodeSystem="local" code="*" /> <referenceRange> <observationRange> < text>11.0-15.6</text> </observationRange> &lt ;/referenceRange> </observation> </component> & lt;component> <observation moodCode="EVN" classCode=&quot ;OBS"> <templateId root="2.16.840.1.805507.10.20.22.4.2 " /> <id nullFlavor="NA" /> <code codeSystem="local" code="WBC" displayName="WHITE BLOOD CELL" /> <statusCode code="completed" /> <effectiveTime value="946837014647" /> <value unit="k/cumm" xsi:type="PQ" value="9.3" /> <referenceRange> <observationRange> & lt;text>5.0-10.0</text> </observationRange> </ referenceRange> </observation> </component> < component> <observation moodCode="EVN" classCode="OBS& quot;> <templateIdroot="2.16.840.1.459236.10.20.22.4.2&quot ; /> <id nullFlavor="NA" /> <code codeSystem="local" code="HGBT" displayName="HEMOGLOBIN& quot; /> <statusCode code="completed" /> & lt;effectiveTime value="384090515767" /> <value unit=& quot;gm/dL" xsi:type="PQ" value="7.9" /> & lt;interpretationCode codeSystem="local" code="*" /> <referenceRange> <observationRange> & lt;text>12.0-16.0</text> </observationRange> </referenceRange> </observation> </component> <component> <observation moodCode="EVN" classCode=& quot;OBS"> <templateId root=" 2.16.840.1.928538.10.20.22.4.2" /> <id nullFlavor="NA& quot; /> <code codeSystem="local" code="HCTT&quot ; displayName="HEMATOCRIT" /> <statusCode code=" completed" /> <effectiveTime value="086801626732" /> <value unit="%" xsi:type="PQ" value=& quot;25.6" /> <interpretationCode codeSystem="local" code="*" /> <referenceRange> < observationRange> <text>37.0-47.0</text> </ observationRange> </referenceRange> </observation&gt ; </component> <component> <observation moodCode ="EVN" classCode="OBS"> <templateId root=& quot;2.16.840.1.890657.10.20.22.4.2" /> <id nullFlavor="NA&quot ; /> <code codeSystem="local" code="PLTT" displayName="PLATELET COUNT" /> <statusCode code=" completed" /> <effectiveTime value="351653959785" /> <value unit="k/cumm" xsi:type="PQ" value=& quot;249" /> <referenceRange> < observationRange> <text>150-450</text> & lt;/observationRange> </referenceRange> </ observation> </component> </organizer> </entry> & lt;entry> <organizer moodCode="EVN" classCode="BATTERY& quot;> <templateId root="2.16.840.1.579390.10.20.22.4.1" /& gt; <id nullFlavor="NA" /> <code codeSystem=" local" code="GHGLUMON" displayName="GLUCOSE (POC)" /&gt ; <statusCode code="completed" /> <component> <observation moodCode="EVN" classCode="OBS"> <templateId root="2.16.840.1.449914.10.20.22.4.2" /> <id nullFlavor="NA" /> <code codeSystem=" local" code="GHGLUMON" displayName="GLUCOSE (POC)" /&gt ; <statusCode code="completed" /> < effectiveTime value="456491214798" /> <value unit=&quot ;mg/dL" xsi:type="PQ" value="184" /> < interpretationCode codeSystem="local" code="*" /> <referenceRange> <observationRange> < text>70-99</text> </observationRange> </ referenceRange> </observation> </component> </ organizer> </entry> <entry> <organizer moodCode="EVN " classCode="BATTERY"> <templateId root=" 2.16.840.1.558606.10.20.22.4.1" /> <id nullFlavor="NA&quot ; /> <code codeSystem="local" code="GHGLUMON" displayName="GLUCOSE (POC)" /> <statusCode code=" completed" /> <component> <observation moodCode=& quot;EVN" classCode="OBS"> <templateId root=" 2.16.840.1.192456.10.20.22.4.2" /> <id nullFlavor="NA& quot; /> <code codeSystem="local" code="GHGLUMON& quot; displayName="GLUCOSE (POC)" /> <statusCode code=& quot;completed" /> <effectiveTime value="654794455871& quot; /> <value unit="mg/dL" xsi:type="PQ" value="154" /> <interpretationCode codeSystem=" local" code="*" /> <referenceRange> <observationRange> <text>70-99</text> </ observationRange> </referenceRange> </observation&gt ; </component> </organizer> </entry> <entry> <organizer moodCode="EVN" classCode="BATTERY"> <templateId root="2.16.840.1.599725.10.20.22.4.1" /> < id nullFlavor="NA" /> <code codeSystem="local" code="VBG" displayName="VENOUS BLOOD GAS" /> < statusCode code="completed" /> <component> < observation moodCode="EVN" classCode="OBS"> < templateId root="2.16.840.1.014345.10.20.22.4.2" /> < id nullFlavor="NA" /><code codeSystem="local" code=& quot;SIGRID" displayName="VBG BASE EXCESS" /> < statusCode code="completed" /> <effectiveTime value=& quot;094774755414" /> <value unit="mEq/L" xsi:type ="PQ" value="-1.9" /> <referenceRange> <observationRange> <text>-3.0-3.0</text&gt ; </observationRange> </referenceRange> & lt;/observation> </component> <component> < observation moodCode="EVN" classCode="OBS"> < templateId root="2.16.840.1.065341.10.20.22.4.2" /> < id nullFlavor="NA" /> <code codeSystem="local&quot ; code="HCO3V" displayName="VBG BICARBONATE" /> < statusCode code="completed" /> <effectiveTime value=& quot;233023038713" /> <value unit="meq/L" xsi:type ="PQ" value="23.1"/> <referenceRange> <observationRange> <text>21-30</text> </observationRange> </referenceRange> </ observation> </component> <component> < observation moodCode="EVN" classCode="OBS"> < templateId root="2.16.840.1.074766.10.20.22.4.2" /> < id nullFlavor="NA" /> <code codeSystem="local&quot ; code="PCO2V" displayName="VBG PCO2" /> < statusCode code="completed" /> <effectiveTime value=& quot;742765096053" /> <value unit="mmHg" xsi:type= "PQ" value="40" /> <interpretationCode codeSystem="local" code="*" /> < referenceRange> <observationRange> <text>41- 51</text> </observationRange> </ referenceRange> </observation> </component> < component> <observation moodCode="EVN" classCode=" OBS"> <templateId root="2.16.840.1.947439.10.20.22.4.2& quot; /> <id nullFlavor="NA" /> <code codeSystem="local" code="PHV" displayName="VBG PH&quot ; /> <statusCode code="completed" /> < effectiveTime value="259905836230" /> <value unit=&quot ;" xsi:type="PQ" value="7.38" /> < referenceRange> <observationRange> <text> 7.33-7.43</text> </observationRange> </ referenceRange> </observation> </component> < component> <observation moodCode="EVN" classCode="OBS" > <templateId root="2.16.840.1.025603.10.20.22.4.2" /& gt; <id nullFlavor="NA" /> <code codeSystem=& quot;local" code="PO2V" displayName="VBG PO2" /> <statusCode code="completed" /> < effectiveTime value="286773348400" /> <value unit=&quot ;mmHg" xsi:type="PQ" value="74" /> < interpretationCode codeSystem="local" code="*" /> & lt;referenceRange> <observationRange> <text& gt;35-40</text> </observationRange> </ referenceRange> </observation> </component> < component> <observation moodCode="EVN"classCode="OBS "> <templateId root="2.16.840.1.861561.10.20.22.4.2& quot; /> <id nullFlavor="NA" /> <code codeSystem="local" code="SATV" displayName="VBG O2 SATURATION" /> <statusCode code="completed" /> <effectiveTime value="880608767434" /> < value unit="%" xsi:type="PQ" value="94" /& gt; <interpretationCode codeSystem="local" code="*& quot; /> <referenceRange> <observationRange> <text>65-75</text> </observationRange&gt ; </referenceRange> </observation> </ component> </organizer> </entry> <entry> < organizer moodCode="EVN" classCode="BATTERY"> < templateId root="2.16.840.1.246659.10.20.22.4.1" /> <id nullFlavor="NA" /> <code codeSystem="local" code= "CBCD" displayName="CBC W/DIFF" /> <statusCode code="completed" /> <component> <observation moodCode="EVN" classCode="OBS"> <templateId root="2.16.840.1.877950.10.20.22.4.2" /> <id nullFlavor ="NA" /> <code codeSystem="local" code=" EO#" displayName="EOSINOPHIL #" /> <statusCode code="completed" /> <effectiveTime value="211897937500& quot; /> <value unit="k/cumm" xsi:type="PQ" value="0.1" /> <referenceRange> < observationRange> <text>0.1-0.5</text> & lt;/observationRange> </referenceRange> </ observation> </component> <component> < observation moodCode="EVN" classCode="OBS"> < templateId root="2.16.840.1.854253.10.20.22.4.2" /> < id nullFlavor="NA" /> <code codeSystem="local&quot ; code="EO%" displayName="EOSINOPHIL %" /&gt ; <statusCode code="completed" /> <effectiveTime value="417457977701" /> <value unit="%& quot; xsi:type="PQ" value="1" /> < interpretationCode codeSystem="local" code="*" /> <referenceRange> <observationRange> < text>2-4</text> </observationRange> </ referenceRange> </observation> </component> < component> <observation moodCode="EVN" classCode=" OBS"> <templateId root="2.16.840.1.498863.10.20.22.4.2& quot; /> <id nullFlavor="NA" /> <code codeSystem= "local" code="GR#" displayName="GRANULOCYTE #" /& gt; <statusCode code="completed" /> < effectiveTime value="225189401192" /> <value unit=&quot ;k/cumm" xsi:type="PQ" value="6.2" /> < referenceRange> <observationRange> <text> 2.0-9.0</text> </observationRange> </ referenceRange> </observation> </component> < component> <observation moodCode="EVN" classCode=" OBS"> <templateId root="2.16.840.1.788466.10.20.22.4.2& quot; /> <id nullFlavor="NA" /> <code codeSystem="local" code="GR%" displayName=" GRANULOCYTE %" /> <statusCode code="completed& quot; /> <effectiveTime value="236683607452" /> <value unit="%" xsi:type="PQ" value=" 72" /> <referenceRange> <observationRange& gt; <text>50-75</text> </observationRange > </referenceRange> </observation> </ component> <component> <observation moodCode="EVN& quot; classCode="OBS"> <templateId root=" 2.16.840.1.315690.10..22.4.2" /> <id nullFlavor="NA& quot; /> <code codeSystem="local" code="LY#" displayName="LYMPHOCYTE #" /> <statusCode code=" completed" /> <effectiveTime value="631172116902" /> <value unit="k/cumm" xsi:type="PQ" value=& quot;1.3" /> <referenceRange> < observationRange> <text>1.0-4.0</text> & lt;/observationRange> </referenceRange> </ observation> </component> <component> < observation moodCode="EVN" classCode="OBS"> < templateId root="2.16.840.1.749388.10..22.4.2" /> < id nullFlavor="NA" /> <code codeSystem="local&quot ; code="LY%" displayName="LYMPHOCYTE %" /&gt ; <statusCode code="completed" /> < effectiveTime value="723902553645" /> <value unit=&quot ;%" xsi:type="PQ" value="15" /> < interpretationCode codeSystem="local" code="*" /> <referenceRange> <observationRange> < text>20-30</text> </observationRange> </ referenceRange> </observation> </component> < component> <observation moodCode="EVN" classCode=" OBS"> <templateId root="2.16.840.1.970410.10.20.22.4.2& quot; /> <id nullFlavor="NA" /> <code codeSystem= "local" code="MCH" displayName="MEAN CELL HGB" /& gt; <statusCode code="completed" /> < effectiveTime value="692247514818" /> <value unit=&quot ;pg" xsi:type="PQ" value="27.7" /> < referenceRange> <observationRange> <text>27.0- 33.0</text> </observationRange> </ referenceRange> </observation> </component> < component> <observation moodCode="EVN" classCode=" OBS"> <templateId root="2.16.840.1.010888.10.20.22.4.2&quot ; /> <id nullFlavor="NA" /> <code codeSystem="local" code="MCHC" displayName="MEAN CELL HGB CONCENTRATION" /> <statusCode code="completed&quot ; /> <effectiveTime value="520699471062" /> <value unit="g/dL" xsi:type="PQ" value="30.6&quot ; /> <interpretationCode codeSystem="local" code=" *" /> <referenceRange> <observationRange&gt ; <text>32.0-37.0</text> </ observationRange> </referenceRange> </observation> </component> <component> <observation moodCode=& quot;EVN" classCode="OBS"> <templateId root=" 2.16.840.1.327611.10.20.22.4.2" /> <id nullFlavor="NA& quot;/> <code codeSystem="local" code="MCV" displayName="MEAN CELL VOLUME" /> <statusCode code=& quot;completed" /> <effectiveTime value="197423277429& quot; /> <value unit="fl" xsi:type="PQ" value ="90.6" /> <referenceRange> < observationRange> <text>80.0-100.0</text> & lt;/observationRange> </referenceRange> </ observation> </component> <component> < observation moodCode="EVN" classCode="OBS"> < templateId root="2.16.840.1.367836.10.20.22.4.2" /> < id nullFlavor="NA" /> <code codeSystem="local" code=& quot;MO#" displayName="MONOCYTE #" /> <statusCode code="completed" /> <effectiveTime value=" 797180679415" /> <value unit="k/cumm" xsi:type=& quot;PQ" value="1.0" /> <referenceRange> <observationRange> <text>0.1-1.0</text> </observationRange> </referenceRange> </ observation> </component> <component> < observation moodCode="EVN" classCode="OBS"> < templateId root="2.16.840.1.745034.10.20.22.4.2" /> < id nullFlavor="NA" /> <code codeSystem="local&quot ; code="MO%" displayName="MONOCYTE %" /> <statusCode code="completed" /> <effectiveTime value="090003093501" /> <value unit="%& quot; xsi:type="PQ" value="12" /> < interpretationCode codeSystem="local" code="*" /> & lt;referenceRange> <observationRange> <text& gt;4-6</text> </observationRange> </ referenceRange> </observation> </component> < component> <observation moodCode="EVN" classCode=" OBS"> <templateId root="2.16.840.1.665767.10.20.22.4.2& quot; /> <id nullFlavor="NA" /> <code codeSystem="local" code="RBC" displayName="RED BLOOD CELL" /> <statusCode code="completed" /> <effectiveTime value="095034321413" /> <value unit="m/cumm" xsi:type="PQ" value="3.10" /> <interpretationCode codeSystem="local" code="*" /& gt; <referenceRange> <observationRange> & lt;text>4.00-6.00</text> </observationRange> </referenceRange> </observation> </component> & lt;component> <observation moodCode="EVN" classCode=&quot ;OBS"> <templateId root="2.16.840.1.473493.10.20.22.4.2& quot; /> <id nullFlavor="NA" /> <code codeSystem="local" code="RDW" displayName="RED CELL DISTRIBUTION WIDTH" /> <statusCode code="completed&quot ; /> <effectiveTime value="920347283855" /> <value unit="%" xsi:type="PQ" value="16.6& quot; /> <interpretationCode codeSystem="local" code=& quot;*" /> <referenceRange> < observationRange> <text>11.0-15.6</text> </observationRange> </referenceRange> </ observation> </component> <component> < observation moodCode="EVN" classCode="OBS"> < templateId root="2.16.840.1.124569.10..22.4.2" /> < id nullFlavor="NA" /> <code codeSystem="local&quot ; code="WBC" displayName="WHITE BLOOD CELL" /> & lt;statusCode code="completed" /> <effectiveTime value= "254552037143" /> <value unit="k/cumm" xsi: type="PQ" value="8.6" /> <referenceRange> <observationRange> <text>5.0-10.0</text& gt; </observationRange> </referenceRange> </observation> </component> <component> < observation moodCode="EVN" classCode="OBS"> < templateId root="2.16.840.1.989411.10.20.22.4.2" /> < id nullFlavor="NA" /> <code codeSystem="local" code="HGBT" displayName="HEMOGLOBIN" /> < statusCode code="completed" /> <effectiveTime value=& quot;528564451461" /> <value unit="gm/dL" xsi:type ="PQ" value="8.6" /> <interpretationCode codeSystem="local" code="*"/> <referenceRange > <observationRange> <text>12.0-16.0</ text> </observationRange> </referenceRange> </observation> </component> <component> <observation moodCode="EVN" classCode="OBS"> <templateId root="2.16.840.1.617439.10.20.22.4.2" /> <id nullFlavor="NA" /> <code codeSystem=" local" code="HCTT" displayName="HEMATOCRIT" /> <statusCode code="completed" /> <effectiveTime value="458593454768" /> <value unit="%" xsi :type="PQ" value="28.1" /> <interpretationCode codeSystem="local" code="*" /> < referenceRange> <observationRange> <text> 37.0-47.0</text> </observationRange> </referenceRange > </observation> </component> <component> <observation moodCode="EVN" classCode="OBS"> <templateId root="2.16.840.1.087445.10.20.22.4.2" />&lt ;id nullFlavor="NA" /> <code codeSystem="local& quot; code="PLTT" displayName="PLATELET COUNT" /> <statusCode code="completed" /> <effectiveTime value="582103089498" /> <value unit="k/cumm" xsi:type="PQ" value="304" /> <referenceRange& gt; <observationRange> <text>150-450</text&gt ; </observationRange> </referenceRange> & lt;/observation> </component> </organizer> </entry> <entry> <organizer moodCode="EVN" classCode=" BATTERY"> <templateId root="2.16.840.1.015373.10.20.22.4.1& quot; /> <id nullFlavor="NA" /> <code codeSystem= "local" code="RETIC" displayName="RETICULOCYTE COUNT& quot; /> <statusCode code="completed" /> < component> <observation moodCode="EVN" classCode=" OBS"> <templateId root="2..840.1.193948.10..22.4.2& quot; /> <id nullFlavor="NA" /> <code codeSystem="local" code="IRF" displayName="IMMATURE FRACTION" /> <statusCode code="completed"/> <effectiveTime value="638114690859" /> < value unit="%" xsi:type="PQ" value="24.9" /> <interpretationCode codeSystem="local" code="*& quot; /> <referenceRange> <observationRange> <text>9.3-17.4</text> </observationRange > </referenceRange> </observation> </ component> <component> <observation moodCode="EVN& quot; classCode="OBS"> <templateId root=" 2.16.840.1.996483.10.20.22.4.2" /> <id nullFlavor="NA& quot; /> <code codeSystem="local" code="RETABS& quot; displayName="ABSOLUTE RETIC COUNT" /> < statusCode code="completed" /> <effectiveTime value=& quot;195100205374" /> <value unit="k/cumm" xsi: type="PQ" value="102.3" /> < interpretationCode codeSystem="local" code="*" /> <referenceRange> <observationRange> < text>39.1-57.0</text> </observationRange> &lt ;/referenceRange> </observation> </component> & lt;component> <observation moodCode="EVN" classCode=&quot ;OBS"> <templateId root="2.16.840.1.467826.10.20.22.4.2 " /> <id nullFlavor="NA" /> <code codeSystem="local" code="RETIC%" displayName=" PERCENT RETIC" /> <statusCode code="completed" /& gt; <effectiveTime value="406720732148" /> &lt ;value unit="%" xsi:type="PQ" value="3.3" /> <interpretationCode codeSystem="local" code="*& quot; /> <referenceRange> <observationRange> <text>0.86-1.36</text> </ observationRange> </referenceRange> </observation&gt ; </component> <component> <observation moodCode ="EVN" classCode="OBS"> <templateId root=& quot;2.16.840.1.567114.10.20.22.4.2" /> <id nullFlavor=&quot ;NA" /> <code codeSystem="local" code="RETHE& quot; displayName="RETIC HGB EQUIVALENT" /> <statusCode code="completed" /> <effectiveTime value=" [id number]" /> <value unit="pg/cell" xsi:type=& quot;PQ" value="29.3" /> <referenceRange> <observationRange> <text>27.1-35.2</text> </observationRange> </referenceRange> </ observation> </component> </organizer> </entry> & lt;entry> <organizer moodCode="EVN" classCode="BATTERY& quot;> <templateId root="[id number]" /& gt; <id nullFlavor="NA" /> <code codeSystem=" local" code="HBA1C" displayName="HEMOGLOBIN A1C" /> <statusCode code="completed" /> <component> <observation moodCode="EVN" classCode="OBS"> <templateId root="2.16.840.1.841962.10.20.22.4.2" /> <id nullFlavor="NA" /> <code codeSystem=" local" code="HBA1C" displayName="HEMOGLOBIN A1C" /> <statusCode code="completed" /> <effectiveTime value="929936131239" /> <value unit="%& quot; xsi:type="PQ" value="6.9" /> < interpretationCode codeSystem="local" code="*" /> & lt;referenceRange> <observationRange> <text& gt;< 5.7</text> </observationRange> </ referenceRange> </observation> </component> </ organizer> </entry> <entry> <organizer moodCode="EVN " classCode="BATTERY"> <templateId root=" 2.16.840.1.197979.10.20.22.4.1" /> <id nullFlavor="NA&quot ; /> <code codeSystem="local" code="FETIBC" displayName="IRON W/ BINDING CAPACITY" /> <statusCode code= "completed" /> <component> <observation moodCode="EVN" classCode="OBS"> <templateId root="2.16.840.1.560864.10.20.22.4.2" /> <id nullFlavor ="NA" /> <code codeSystem="local" code=" FESAT" displayName="IRON SATURATION" /> <statusCode code=& quot;completed" /> <effectiveTime value="904237255382& quot; /> <value unit="%SAT" xsi:type="PQ& quot; value="5" /> <interpretationCode codeSystem=&quot ;local" code="*" /> <referenceRange> < observationRange> <text>11-46</text> < /observationRange> </referenceRange> </observation& gt; </component> <component> <observation moodCode="EVN" classCode="OBS"> <templateId root="2.16.840.1.631599.10.20.22.4.2" /> <id nullFlavor ="NA" /> <code codeSystem="local" code=" TIBC" displayName="IRON BINDING CAPACITY, TOTAL" /> & lt;statusCode code="completed" /> <effectiveTime value= "484925283439" /> <value unit="mcg/dL" xsi:type ="PQ" value="345" /> <referenceRange> & lt;observationRange> <text>250-450</text> </observationRange> </referenceRange> </ observation> </component> <component> < observation moodCode="EVN" classCode="OBS"> < templateId root="2.16.840.1.246918.10.20.22.4.2" /> < id nullFlavor="NA" /> <code codeSystem="local&quot ; code="IRON" displayName="IRON" /> < statusCode code="completed" /> <effectiveTime value=& quot;906583901235" /> <value unit="mcg/dL" xsi: type="PQ" value="18" /> <interpretationCode codeSystem="local" code="*" /> < referenceRange> <observationRange> <text> 35-150</text> </observationRange> </ referenceRange> </observation> </component> </ organizer> </entry> <entry> <organizer moodCode="EVN " classCode="BATTERY"> <templateId root=" 2.16.840.1.683186.10.20.22.4.1" /> <id nullFlavor="NA&quot ; /> <code codeSystem="local" code="METAB" displayName="METABOLIC PANEL, BASIC" /> <statusCode code=& quot;completed" /> <component> <observation moodCode ="EVN" classCode="OBS"> <templateId root=&quot ;2.16.840.1.121564.10.20.22.4.2" /> <id nullFlavor="NA& quot; /> <code codeSystem="local" code="K" displayName="POTASSIUM" /> <statusCode code=" completed" /> <effectiveTime value="445599838768" /> <value unit="mmol/L" xsi:type="PQ" value=& quot;4.9" /> <referenceRange> < observationRange> <text>3.5-5.3</text> & lt;/observationRange> </referenceRange> </observation> </component> <component> <observation moodCode=& quot;EVN" classCode="OBS"> <templateId root=" 2.16.840.1.778825.10.20.22.4.2" /> <id nullFlavor="NA& quot; /> <code codeSystem="local" code="eGFR&quot ; displayName="EST GFR (MDRD)" /> <statusCode code=& quot;completed" /> <effectiveTime value="225230492484& quot; /> <value unit="mL/min" xsi:type="PQ" value="28" /> <interpretationCode codeSystem=" local" code="*" /> <referenceRange> <observationRange> <text>> 59</text> </observationRange> </referenceRange> </ observation> </component> <component> < observation moodCode="EVN" classCode="OBS"> < templateId root="2.16.840.1.467728.10..22.4.2" /> < id nullFlavor="NA" /> <code codeSystem="local&quot ; code="GAP" displayName="ANION GAP" /> < statusCode code="completed" /> <effectiveTime value=& quot;783708781199" /> <value unit="mmol/L" xsi: type="PQ" value="10" /> <referenceRange> <observationRange> <text>5-15</text> </observationRange> </referenceRange> </ observation> </component> <component> < observation moodCode="EVN" classCode="OBS"> < templateId root="2.16.840.1.334742.10.20.22.4.2" /> < id nullFlavor="NA" /> <code codeSystem="local&quot ; code="eCrCl" displayName="EST CrCl (CG)" /> & lt;statusCode code="completed" /> <effectiveTime value= "985684962696" /> <value unit="mL/min" xsi: type="PQ" value="40" /> <interpretationCode codeSystem="local" code="*" /> < referenceRange> <observationRange> <text>&gt ; 59</text> </observationRange> </ referenceRange> </observation> </component> < component> <observation moodCode="EVN" classCode=" OBS"> <templateId root="2.16.840.1.366077.10.20.22.4.2& quot; /> <id nullFlavor="NA" /> <code codeSystem="local" code="GLU" displayName="GLUCOSE&quot ; /> <statusCode code="completed" /> < effectiveTime value="164772989658" /> <value unit=&quot ;mg/dL" xsi:type="PQ" value="109" /> < interpretationCode codeSystem="local" code="*" /> <referenceRange> <observationRange> <text> 70-99</text> </observationRange> </ referenceRange> </observation> </component> < component> <observation moodCode="EVN" classCode=" OBS"> <templateId root="2.16.840.1.971352.10.20.22.4.2& quot; /> <id nullFlavor="NA" /> <code codeSystem="local" code="CA" displayName="CALCIUM&quot ; /> <statusCode code="completed" /> < effectiveTime value="446790950768" /> <value unit=&quot ;mg/dL" xsi:type="PQ" value="8.4" /> < interpretationCode codeSystem="local" code="*" /> <referenceRange> <observationRange> < text>8.5-10.1</text> </observationRange> </ referenceRange> </observation> </component> < component> <observation moodCode="EVN" classCode=" OBS"> <templateId root="2.16.840.1.318427.10.20.22.4.2& quot; /> <id nullFlavor="NA" /> <code codeSystem="local" code="BUN" displayName="BLOOD UREA NITROGEN" /> <statusCode code="completed" /> <effectiveTime value="138736425234" /> < valueunit="mg/dL" xsi:type="PQ" value="79" /> <interpretationCode codeSystem="local" code="*" /> <referenceRange> <observationRange> < text>7-20</text> </observationRange> </ referenceRange> </observation> </component> < component> <observation moodCode="EVN" classCode=" OBS"> <templateId root="2.16.840.1.317556.10.20.22.4.2& quot; /> <id nullFlavor="NA" /> <code codeSystem="local" code="CREAT" displayName="CREATININE " /> <statusCode code="completed" /> & lt;effectiveTime value="482650840159" /> <value unit=& quot;mg/dL" xsi:type="PQ" value="1.8" /> & lt;interpretationCode codeSystem="local" code="*" /> <referenceRange> <observationRange> <text> 0.6-1.0</text> </observationRange> </ referenceRange> </observation> </component> < component> <observation moodCode="EVN" classCode=" OBS"> <templateId root="2.16.840.1.009420.10.20.22.4.2& quot; /> <id nullFlavor="NA" /> <code codeSystem="local" code="NA" displayName="SODIUM" /> <statusCode code="completed" /> < effectiveTime value="613077343040" /> <value unit=&quot ;mmol/L" xsi:type="PQ" value="140" /> < referenceRange> <observationRange> <text> 135-148</text> </observationRange> </ referenceRange> </observation> </component> < component> <observation moodCode="EVN" classCode=" OBS"> <templateId root="2.16.840.1.580870.10.20.22.4.2& quot; /> <id nullFlavor="NA" /> <code codeSystem="local" code="CL" displayName="CHLORIDE&quot ; /> <statusCode code="completed" /> < effectiveTime value="416425893072" /> <value unit=&quot ;mmol/L" xsi:type="PQ" value="105" /> < referenceRange> <observationRange> <text> 98-110</text> </observationRange> </ referenceRange> </observation> </component> < component> <observation moodCode="EVN" classCode=" OBS"> <templateId root="2.16.840.1.572713.10.20.22.4.2& quot; /> <idnullFlavor="NA" /> <code codeSystem="local" code="CO2" displayName="CARBON DIOXIDE" /> <statusCode code="completed" /> <effectiveTime value="919971925083" /> <value unit="mmol/L" xsi:type="PQ" value="25" /> <referenceRange> <observationRange> &lt ;text>21-32</text> </observationRange> </ referenceRange> </observation> </component> </ organizer> </entry> <entry> <organizer moodCode="EVN " classCode="BATTERY"> <templateId root=" 2.16.840.1.522017.10.20.22.4.1" /> <id nullFlavor="NA&quot ; /> <code codeSystem="local" code="LDH" displayName="LACTATE DEHYDROGENASE (LDH/LD)" /> < statusCode code="completed" /> <component> < observation moodCode="EVN" classCode="OBS"> < templateId root="2.16.840.1.614038.10.20.22.4.2" /> < id nullFlavor="NA" /> <code codeSystem="local&quot ; code="LDH" displayName="LACTATE DEHYDROGENASE (LDH/LD)" /& gt; <statusCode code="completed" /> < effectiveTime value="463537361323" /> <valueunit=" Units/L" xsi:type="PQ" value="330" /> < interpretationCode codeSystem="local" code="*" /> <referenceRange> <observationRange> <text> 81-234</text> </observationRange> </ referenceRange> </observation> </component> </ organizer> </entry> <entry> <organizer moodCode="EVN " classCode="BATTERY"> <templateId root=" 2.16.840.1.812495.10.20.22.4.1" /><id nullFlavor="NA" /&gt ; <code codeSystem="local" code="KISHA" displayName=& quot;FERRITIN" /> <statusCode code="completed" /> <component> <observation moodCode="EVN" classCode ="OBS"> <templateId root="2.16.840.1.365554.10.20.22.4.2& quot; /> <id nullFlavor="NA" /> <code codeSystem="local" code="KISHA" displayName="FERRITIN& quot; /> <statusCode code="completed" /> & lt;effectiveTime value="435887618160" /> <value unit=& quot;ng/mL" xsi:type="PQ" value="42" /> &lt ;referenceRange> <observationRange> <text&gt ;8-252</text> </observationRange> </ referenceRange> </observation> </component> </ organizer> </entry> <entry> <organizer moodCode="EVN " classCode="BATTERY"><templateId root=" 2.16.840.1.225237.10.20.22.4.1" /> <id nullFlavor="NA&quot ; /> <code codeSystem="local" code="TSH" displayName="THYROID STIM HORMONE (TSH)" /> <statusCode code="completed" /> <component> <observation moodCode="EVN" classCode="OBS"> <templateId root="2.16.840.1.859828.10.20.22.4.2" /> <id nullFlavor ="NA" /> <code codeSystem="local" code=" TSH" displayName="THYROID STIM HORMONE (TSH)" /> < statusCode code="completed" /> <effectiveTime value=& quot;352742429783" /> <value unit="uIU/mL" xsi: type="PQ" value="1.54" /> <referenceRange&gt ; <observationRange> <text>0.34-4.82</ text> </observationRange> </referenceRange> </observation> </component> </organizer> </ entry> <entry> <organizer moodCode="EVN" classCode=& quot;BATTERY"> <templateId root=" 2.16.840.1.215246.10.20.22.4.1" /> <id nullFlavor="NA&quot ; /> <code codeSystem="local" code="FOL" displayName="FOLIC ACID,SERUM" /> <statusCode code=" completed" /> <component> <observation moodCode=& quot;EVN" classCode="OBS"> <templateId root=" 2.16.840.1.996096.10.20.22.4.2" /> <id nullFlavor="NA& quot; /> <code codeSystem="local" code="FOL" displayName="FOLIC ACID,SERUM" /> <statusCode code=& quot;completed" /> <effectiveTime value="850399969139& quot; /> <value unit="ng/mL" xsi:type="PQ" value="> 20.0" /> <referenceRange> <observationRange> <text>> 3.4</text> </observationRange> </referenceRange> < /observation> </component> </organizer> </entry> <entry> <organizer moodCode="EVN" classCode="BATTERY& quot;> <templateId root="2.16.840.1.707051.10.20.22.4.1" /& gt; <id nullFlavor="NA" /> <code codeSystem=" local" code="VITB12" displayName="VITAMIN B12" /> <statusCode code="completed" /><component> < observation moodCode="EVN" classCode="OBS"> < templateId root="2.16.840.1.184387.10.20.22.4.2" /> < id nullFlavor="NA" /> <code codeSystem="local&quot ; code="VITB12" displayName="VITAMIN B12" /> &lt ;statusCode code="completed" /> <effectiveTime value=& quot;245963346803" /> <value unit="pg/mL" xsi:type ="PQ" value="488" /> <referenceRange> <observationRange> <text>193-986</text> </observationRange> </referenceRange> </ observation> </component> </organizer> </entry> & lt;entry> <organizer moodCode="EVN" classCode="BATTERY& quot;> <templateId root="2.16.840.1.834633.10.20.22.4.1" /& gt; <id nullFlavor="NA" /> <code codeSystem=" local" code="HAPT" displayName="HAPTOGLOBIN" /> <statusCode code="completed" /> <component> <observation moodCode="EVN" classCode="OBS"> <templateId root="2.16.840.1.102472.10.20.22.4.2" /> & lt;id nullFlavor="NA"/> <code codeSystem="local& quot; code="HAPT" displayName="HAPTOGLOBIN" /> & lt;statusCode code="completed" /> <effectiveTime value= "467019412787" /> <value unit="mg/dL" xsi: type="PQ" value="407" /> <interpretationCode codeSystem="local" code="*" /> < referenceRange> <observationRange> <text> 30-200</text> </observationRange> </ referenceRange> </observation> </component> </ organizer> </entry> <entry> <organizer moodCode="EVN& quot; classCode="BATTERY"> <templateId root=" 2.16.840.1.132873.10.20.22.4.1" /> <id nullFlavor="NA&quot ; /> <code codeSystem="local" code="GHGLUMON" displayName="GLUCOSE (POC)" /> <statusCode code=" completed" /> <component> <observation moodCode=& quot;EVN" classCode="OBS"> <templateId root=" 2.16.840.1.915326.10.20.22.4.2" /> <id nullFlavor="NA& quot; /> <code codeSystem="local" code="GHGLUMON& quot; displayName="GLUCOSE (POC)" /> <statusCode code=" completed" /> <effectiveTime value="963773382329" /> <value unit="mg/dL" xsi:type="PQ" value=& quot;123" /> <interpretationCode codeSystem="local&quot ; code="*" /> <referenceRange> < observationRange> <text>70-99</text> < /observationRange> </referenceRange> </observation& gt; </component> </organizer> </entry> <entry&gt ; <organizer moodCode="EVN" classCode="BATTERY"> <templateId root="2.16.840.1.408625.10.20.22.4.1" /> & lt;id nullFlavor="NA" /> <code codeSystem="local&quot ; code="GHGLUMON" displayName="GLUCOSE (POC)" /> &lt ;statusCode code="completed" /> <component> < observation moodCode="EVN" classCode="OBS"> < templateId root="2.16.840.1.503972.10.20.22.4.2" /> < id nullFlavor="NA" /> <code codeSystem="local&quot ; code="GHGLUMON" displayName="GLUCOSE (POC)" /> <statusCode code="completed" /> <effectiveTime value="794379598472" /> <value unit="mg/dL" xsi: type="PQ" value="218" /> <interpretationCode codeSystem="local" code="*" /> < referenceRange> <observationRange> <text> 70-99</text> </observationRange> </ referenceRange> </observation> </component> </ organizer> </entry> <entry> <organizer moodCode="EVN " classCode="BATTERY"> <templateId root=" 2.16.840.1.193191.10.20.22.4.1"/> <id nullFlavor="NA" /> <code codeSystem="local" code="OCC" displayName="FECAL OCCULT BLOOD" /> <statusCode code=" completed" /> <component> <observation moodCode=& quot;EVN" classCode="OBS"> <templateId root=" 2.16.840.1.528592.10.20.22.4.2" /><id nullFlavor="NA" /&gt ; <code codeSystem="local" code="MB" displayName ="Microbiology" /> <statusCode code="completed& quot; /> <effectiveTime value="048706080363" /> <value xsi:type="ST" value="<pre><b>FECAL OCCULT BLOOD</b> See BelowFECAL OCCULT BLOOD(F) Aarti Date/Time: 04/07/2017 12:05 Mara Date/Time: // :SOURCE: STOOLSPEC DESC: See BelowFECAL OCCULT BLOOD(F) Aarti Date/Time: 2016 12:05 Mara Date/Time: 04/07/2017 13:39SOURCE: STOOLSPEC DESC: OCCULT BLOOD (Abnormal)POSITIVE (Abnormal)[facility] [id number] [place] [address]</pre>" /> <referenceRange> <observationRange> < text /> </observationRange> </referenceRange&gt ; </observation> </component> </organizer> </ entry> <entry> <organizer moodCode="EVN" classCode=& quot;BATTERY"> <templateId root=" 2.16.840.1.737946.10.20.22.4.1" /> <id nullFlavor="NA&quot ; /> <code codeSystem="local" code="GHGLUMON" displayName="GLUCOSE (POC)" /> <statusCode code=" completed" /> <component> <observation moodCode=& quot;EVN" classCode="OBS"> <templateId root=" 2.16.840.1.259389.10.20.22.4.2" /> <id nullFlavor="NA& quot; /> <code codeSystem="local" code="GHGLUMON& quot; displayName="GLUCOSE (POC)" /> <statusCode code=& quot;completed" /> <effectiveTime value="319783395584& quot; /> <value unit="mg/dL" xsi:type="PQ" value=&quot ;221" /> <interpretationCode codeSystem="local" code="*" /> <referenceRange> < observationRange> <text>70-99</text> < /observationRange> </referenceRange> </observation& gt; </component> </organizer> </entry> <entry&gt ; <organizer moodCode="EVN" classCode="BATTERY"> <templateId root="2.16.840.1.272007.10.20.22.4.1" /> & lt;id nullFlavor="NA" /> <code codeSystem="local&quot ; code="GHGLUMON" displayName="GLUCOSE (POC)" /> &lt ;statusCode code="completed" /> <component> < observation moodCode="EVN" classCode="OBS"> < templateId root="216.840.1.439160.10.20.22.4.2" /> < id nullFlavor="NA" /> <code codeSystem="local&quot ; code="GHGLUMON" displayName="GLUCOSE (POC)" /> <statusCode code="completed" /> <effectiveTime value="979416921108" /> <value unit="mg/dL" xsi:type="PQ" value="151" /> < interpretationCode codeSystem="local" code="*" /> <referenceRange> <observationRange> < text>70-99</text> </observationRange> </ referenceRange> </observation> </component> </ organizer> </entry> <entry> <organizer moodCode="EVN " classCode="BATTERY"> <templateId root=" 2.16.840.1.393766.10.20.22.4.1" /> <id nullFlavor="NA&quot ; /> <code codeSystem="local" code="CBCD" displayName="CBC W/DIFF" /> <statusCode code=" completed" /> <component> <observation moodCode=& quot;EVN" classCode="OBS"> <templateId root=" 2.16.840.1.633350.10.20.22.4.2" /> <id nullFlavor="NA& quot; /> <code codeSystem="local" code="CBCCOM& quot; displayName="COMMENT" /> <statusCode code=" completed" /> <effectiveTime value="892307871181" /> <value unit="" xsi:type="PQ" value=" REVIEWED" /> <referenceRange> < observationRange> <text /> </observationRange&gt ; </referenceRange></observation> </component> <component> <observation moodCode="EVN" classCode ="OBS"> <templateId root=" 2.16.840.1.796457.10.20.22.4.2" /> <id nullFlavor="NA& quot; /> <code codeSystem="local" code="EO#" displayName="EOSINOPHIL #" /> <statusCode code=" completed" /> <effectiveTime value="174351596279" /> <value unit="k/cumm" xsi:type="PQ" value=& quot;0.1" /> <referenceRange> <observationRange&gt ; <text>0.1-0.5</text> </observationRange > </referenceRange> </observation> </ component> <component> <observation moodCode="EVN& quot; classCode="OBS"> <templateId root=" 2.16.840.1.980327.10.20.22.4.2" /> <id nullFlavor="NA& quot; /> <code codeSystem="local" code="EO&#37 ;" displayName="EOSINOPHIL %" /> < statusCode code="completed" /> <effectiveTime value=& quot;197778035957" /> <value unit="%" xsi:type ="PQ" value="1" /> <interpretationCode codeSystem=& quot;local" code="*" /> <referenceRange> <observationRange> <text>2-4</text> </observationRange> </referenceRange> </ observation> </component> <component> < observation moodCode="EVN" classCode="OBS"> < templateId root="2.16.840.1.402249.10..22.4.2" /> < idnullFlavor="NA" /> <code codeSystem="local&quot ; code="GR#" displayName="GRANULOCYTE #" /> < statusCode code="completed" /> <effectiveTime value=&quot ;355171398533" /> <value unit="k/cumm" xsi:type=& quot;PQ" value="6.1" /> <referenceRange> <observationRange> <text>2.0-9.0</text> </observationRange> </referenceRange> </ observation> </component> <component> < observation moodCode="EVN" classCode="OBS"> < templateId root="2.16.840.1.249421.10.20.22.4.2" /> < id nullFlavor="NA" /> <code codeSystem="local&quot ; code="GR%" displayName="GRANULOCYTE %" /& gt; <statusCode code="completed" /> < effectiveTime value="799800786252" /> <value unit=&quot ;%" xsi:type="PQ" value="70" /> &lt ;referenceRange><observationRange> <text>50-75</ text> </observationRange> </referenceRange> </observation> </component> <component> <observation moodCode="EVN" classCode="OBS"> <templateId root="2.16.840.1.800083.10.20.22.4.2" /> <id nullFlavor="NA" /> <code codeSystem=" local" code="LY#" displayName="LYMPHOCYTE #" /> <statusCode code="completed" /> < effectiveTime value="224555676736" /> <value unit=&quot ;k/cumm" xsi:type="PQ" value="1.4" /> < referenceRange> <observationRange> <text> 1.0-4.0</text> </observationRange> </ referenceRange> </observation> </component> < component> <observation moodCode="EVN" classCode="OBS" > <templateId root="2..840.1.667819.10.20.22.4.2" /& gt; <id nullFlavor="NA" /> <code codeSystem=& quot;local" code="LY%" displayName="LYMPHOCYTE&# 37;" /> <statusCode code="completed" /> <effectiveTime value="254477206515" /> <value unit="%" xsi:type="PQ" value="16" /> <interpretationCode codeSystem="local" code="*" / > <referenceRange> <observationRange> < text>20-30</text> </observationRange> </ referenceRange> </observation> </component> < component> <observationmoodCode="EVN" classCode="OBS "> <templateId root="2.16.840.1.861926.10.20.22.4.2& quot; /> <id nullFlavor="NA" /> <code codeSystem="local" code="MCH" displayName="MEAN CELL HGB" /> <statusCode code="completed" /> <effectiveTime value="550075995087" /> <value unit="pg" xsi:type="PQ" value="27.7" /> <referenceRange> <observationRange> < text>27.0-33.0</text> </observationRange> &lt ;/referenceRange> </observation> </component> & lt;component> <observation moodCode="EVN" classCode=&quot ;OBS"> <templateId root="2.16.840.1.005236.10.20.22.4.2 " /> <id nullFlavor="NA" /> <code codeSystem="local" code="MCHC" displayName="MEAN CELL HGB CONCENTRATION" /> <statusCode code="completed&quot ; /> <effectiveTime value="931178194984" /> <value unit="g/dL" xsi:type="PQ" value="30.5&quot ; /> <interpretationCode codeSystem="local" code="* " /> <referenceRange> <observationRange&gt ; <text>32.0-37.0</text> </ observationRange> </referenceRange> </observation&gt ; </component> <component> <observation moodCode=& quot;EVN" classCode="OBS"> <templateId root=" 2.16.840.1.560883.10..22.4.2" /> <id nullFlavor="NA&quot ; /> <code codeSystem="local" code="MCV" displayName="MEAN CELL VOLUME" /> <statusCode code=& quot;completed" /> <effectiveTime value="629366739276& quot; /> <value unit="fl" xsi:type="PQ" value ="91.0" /> <referenceRange> < observationRange> <text>80.0-100.0</text> </observationRange> </referenceRange> </ observation> </component> <component> < observation moodCode="EVN" classCode="OBS"> < templateId root="2.16.840.1.503319.10.20.22.4.2" /> < idnullFlavor="NA" /> <code codeSystem="local&quot ; code="MO#" displayName="MONOCYTE #" /> < statusCode code="completed" /> <effectiveTime value=" 070026970948" /> <value unit="k/cumm" xsi:type=& quot;PQ" value="1.1" /> <interpretationCode codeSystem="local" code="*" /> < referenceRange> <observationRange> <text> 0.1-1.0</text> </observationRange> </ referenceRange> </observation> </component> < component> <observation moodCode="EVN" classCode="OBS&quot ;> <templateId root="2.16.840.1.049217.10.20.22.4.2" /& gt; <id nullFlavor="NA" /> <code codeSystem=& quot;local" code="MO%" displayName="MONOCYTE &# 37;" /> <statusCode code="completed" /> <effectiveTime value="124497960501" /> <value unit="%" xsi:type="PQ" value="12" /> <interpretationCode codeSystem="local" code="*" / > <referenceRange> <observationRange> < text>4-6</text> </observationRange> </ referenceRange> </observation> </component> < component> <observation moodCode="EVN" classCode=" OBS"> <templateId root="2.16.840.1.861818.10.20.22.4.2& quot; /> <id nullFlavor="NA" /> <code codeSystem="local" code="RBC" displayName="RED BLOOD CELL" /> <statusCode code="completed" /> <effectiveTime value="030222622453" /> <value unit="m/cumm" xsi:type="PQ" value="3.21" /> <interpretationCode codeSystem="local" code="*" /& gt; <referenceRange> <observationRange> <text>4.00-6.00</text> </observationRange> </referenceRange> </observation> </component& gt; <component> <observation moodCode="EVN" classCode="OBS"> <templateId root=" [id number]" /> <id nullFlavor="NA& quot; /> <code codeSystem="local" code="RDW" displayName="RED CELL DISTRIBUTION WIDTH" /> < statusCode code="completed" /> <effectiveTime value=& quot;[id number]" /> <value unit="%" xsi:type=& quot;PQ" value="16.7" /><interpretationCode codeSystem=& quot;local" code="*" /> <referenceRange> <observationRange> <text>11.0-15.6</text> </observationRange> </referenceRange> </ observation> </component> <component> < observation moodCode="EVN" classCode="OBS"> < templateId root="[id number]" /> < id nullFlavor="NA" /> <code codeSystem="local&quot ; code="WBC" displayName="WHITE BLOOD CELL" /> & lt;statusCode code="completed" /> <effectiveTime value= "799108884766" /> <value unit="k/cumm" xsi: type="PQ" value="8.7" /> <referenceRange> <observationRange> <text>5.0-10.0</text> </observationRange> </referenceRange> &lt ;/observation> </component> <component> < observation moodCode="EVN" classCode="OBS"> < templateId root="2.16.840.1.366448.10.20.22.4.2" /> < id nullFlavor="NA" /> <code codeSystem="local&quot ; code="HGBT" displayName="HEMOGLOBIN" /> < statusCode code="completed" /> <effectiveTime value=& quot;791550169304" /> <value unit="gm/dL" xsi:type ="PQ" value="8.9" /> <interpretationCode codeSystem="local" code="*" /> < referenceRange> <observationRange> <text> 12.0-16.0</text> </observationRange> </ referenceRange> </observation> </component> < component> <observation moodCode="EVN" classCode=" OBS"> <templateId root="2.16.840.1.379308.10.20.22.4.2& quot; /> <id nullFlavor="NA" /><code codeSystem=& quot;local" code="HCTT" displayName="HEMATOCRIT" /> <statusCode code="completed" /> < effectiveTime value="973737649108" /> <value unit=&quot ;%" xsi:type="PQ" value="29.2" /> & lt;interpretationCode codeSystem="local" code="*" /> <referenceRange> <observationRange> & lt;text>37.0-47.0</text> </observationRange> </referenceRange> </observation> </component> <component> <observation moodCode="EVN" classCode=& quot;OBS"> <templateId root=" 2.16.840.1.551434.10.20.22.4.2" /> <id nullFlavor="NA& quot; /> <code codeSystem="local" code="PLTT&quot ; displayName="PLATELET COUNT" /> <statusCodecode=&quot ;completed" /> <effectiveTime value="494128613320&quot ; /> <value unit="k/cumm" xsi:type="PQ" value=& quot;307" /> <referenceRange> < observationRange> <text>150-450</text> & lt;/observationRange> </referenceRange> </ observation> </component> </organizer> </entry> & lt;entry> <organizer moodCode="EVN" classCode="BATTERY& quot;> <templateId root="2.16.840.1.378771.10.20.22.4.1" /& gt; <id nullFlavor="NA" /> <code codeSystem=" local" code="RENAL" displayName="RENAL FUNCTION PANEL" /> <statusCode code="completed" /> <component&gt ; <observation moodCode="EVN" classCode="OBS"> <templateId root="2.16.840.1.241634.10.20.22.4.2" /> <id nullFlavor="NA" /> <code codeSystem=& quot;local" code="K" displayName="POTASSIUM" /> <statusCode code="completed" /> < effectiveTime value="555032763540" /> <value unit=&quot ;mmol/L" xsi:type="PQ" value="4.4" /> < referenceRange> <observationRange> <text> 3.5-5.3</text> </observationRange> </referenceRange& gt; </observation> </component> <component> <observation moodCode="EVN" classCode="OBS"> <templateId root="2.16.840.1.608910.10.20.22.4.2" />< id nullFlavor="NA" /> <code codeSystem="local&quot ; code="eGFR" displayName="EST GFR (MDRD)" /> & lt;statusCode code="completed" /> <effectiveTime value= "391221784403" /> <value unit="mL/min" xsi: type="PQ" value="40" /> <interpretationCode codeSystem="local" code="*" /> < referenceRange> <observationRange> <text> > 59</text> </observationRange> </ referenceRange> </observation> </component> < component> <observation moodCode="EVN" classCode=" OBS"> <templateId root="2.16.840.1.722277.10..22.4.2& quot; /> <id nullFlavor="NA" /> <code codeSystem="local" code="GAP" displayName="ANION GAP& quot; /> <statusCode code="completed" /> & lt;effectiveTime value="180074372754" /> <value unit=& quot;mmol/L" xsi:type="PQ" value="7" /> &lt ;referenceRange> <observationRange> <text>5- 15</text> </observationRange> </ referenceRange> </observation> </component> < component> <observation moodCode="EVN" classCode=" OBS"> <templateId root="2.16.840.1.724672.10..22.4.2& quot; /> <id nullFlavor="NA" /> <code codeSystem="local" code="eCrCl" displayName="EST CrCl ( CG)" /> <statusCode code="completed" /> <effectiveTime value="045685242862" /> <value unit=& quot;mL/min" xsi:type="PQ" value="56" /> & lt;interpretationCode codeSystem="local" code="*" /> <referenceRange> <observationRange> < text>> 59</text> </observationRange> & lt;/referenceRange> </observation> </component> <component> <observation moodCode="EVN" classCode=& quot;OBS"> <templateId root=" 2.16.840.1.283560.10.20.22.4.2" /> <id nullFlavor="NA& quot; /> <code codeSystem="local" code="GLU" displayName="GLUCOSE" /> <statusCode code=" completed" /> <effectiveTime value="480478210560" /> <value unit="mg/dL" xsi:type="PQ" value=& quot;97" /> <referenceRange> < observationRange> <text>70-99</text> < /observationRange> </referenceRange> </observation& gt; </component> <component> <observation moodCode="EVN" classCode="OBS"> <templateId root="2.16.840.1.285945.10.20.22.4.2" /> <id nullFlavor ="NA" /> <code codeSystem="local" code=" CA" displayName="CALCIUM" /> <statusCode code=& quot;completed" /> <effectiveTime value="560545302558" /& gt; <value unit="mg/dL" xsi:type="PQ" value=& quot;9.2" /> <referenceRange> < observationRange> <text>8.5-10.1</text> & lt;/observationRange> </referenceRange> </observation > </component> <component> <observation moodCode="EVN" classCode="OBS"> <templateId root="2.16.840.1.970586.10.20.22.4.2" /> <id nullFlavor ="NA" /> <code codeSystem="local" code=" BUN" displayName="BLOODUREA NITROGEN" /> < statusCode code="completed" /> <effectiveTime value=& quot;406443070453" /> <value unit="mg/dL" xsi:type ="PQ" value="71" /> <interpretationCode codeSystem="local" code="*" /> < referenceRange> <observationRange> <text>7-20</ text> </observationRange> </referenceRange> </observation> </component> <component> <observation moodCode="EVN" classCode="OBS"> <templateId root="2.16.840.1.863222.10.20.22.4.2" /> <id nullFlavor="NA" /> <code codeSystem=" local" code="CREAT" displayName="CREATININE" /> <statusCode code="completed" /> < effectiveTime value="085920192513" /> <value unit=&quot ;mg/dL" xsi:type="PQ" value="1.3" /> < interpretationCode codeSystem="local" code="*" /> <referenceRange> <observationRange> < text>0.6-1.0</text> </observationRange> </ referenceRange> </observation> </component> < component> <observation moodCode="EVN" classCode=" OBS"> <templateId root="2.16.840.1.855094.10.20.22.4.2& quot; /> <id nullFlavor="NA" /> <code codeSystem="local" code="NA" displayName="SODIUM" /> <statusCode code="completed" /> < effectiveTime value="973107023003" /> <value unit=&quot ;mmol/L" xsi:type="PQ" value="142" /> < referenceRange> <observationRange> <text>135-148& lt;/text> </observationRange> </referenceRange& gt; </observation> </component><component> <observation moodCode="EVN" classCode="OBS"> < templateId root="2.16.840.1.966744.10.20.22.4.2" /> < id nullFlavor="NA" /> <code codeSystem="local&quot ; code="CL" displayName="CHLORIDE" /> < statusCode code="completed" /> <effectiveTime value=& quot;265546199571" /> <value unit="mmol/L" xsi: type="PQ" value="108" /> <referenceRange> <observationRange> <text>98-110</text&gt ; </observationRange> </referenceRange> & lt;/observation> </component> <component> < observation moodCode="EVN" classCode="OBS"> < templateId root="2.16.840.1.804809.10.20.22.4.2" /> < id nullFlavor="NA" /> <code codeSystem="local" code="CO2" displayName="CARBON DIOXIDE" /> < statusCode code="completed" /> <effectiveTime value=& quot;289893284248" /> <value unit="mmol/L" xsi: type="PQ" value="27" /> <referenceRange> <observationRange> <text>21-32</text> & lt;/observationRange> </referenceRange> </ observation> </component> <component> < observation moodCode="EVN" classCode="OBS"> < templateId root="2.16.840.1.131372.10.20.22.4.2" /> < id nullFlavor="NA" /> <code codeSystem="local&quot ; code="ALB" displayName="ALBUMIN" /> < statusCode code="completed" /> <effectiveTime value=& quot;725335794759" /> <value unit="gm/dL" xsi:type ="PQ" value="2.6" /> <interpretationCode codeSystem ="local" code="*" /> <referenceRange> <observationRange> <text>3.4-5.0</text> </observationRange> </referenceRange> </ observation> </component> <component> < observation moodCode="EVN" classCode="OBS"> < templateId root="2.16.840.1.167327.10.20.22.4.2" /><id nullFlavor="NA" /> <code codeSystem="local" code="PHOS" displayName="PHOSPHORUS" /> < statusCode code="completed" /> <effectiveTime value=& quot;607853978500" /> <value unit="mg/dL" xsi:type ="PQ" value="3.5" /> <referenceRange> & lt;observationRange> <text>2.5-4.9</text> </observationRange> </referenceRange> </ observation> </component> </organizer> </entry> & lt;entry> <organizer moodCode="EVN" classCode="BATTERY& quot;> <templateId root="2.16.840.1.340097.10.20.22.4.1" /& gt;<id nullFlavor="NA" /> <code codeSystem="local& quot; code="GHGLUMON" displayName="GLUCOSE (POC)" /> <statusCode code="completed" /> <component> <observation moodCode="EVN" classCode="OBS"> <templateId root="2.16.840.1.106874.10.20.22.4.2" /> & lt;id nullFlavor="NA" /> <code codeSystem="local& quot; code="GHGLUMON"displayName="GLUCOSE (POC)" /> <statusCode code="completed" /> <effectiveTime value="153609957473" /> <value unit="mg/dL" xsi:type="PQ" value="110" /> < interpretationCode codeSystem="local" code="*" /> <referenceRange> <observationRange> < text>70-99</text> </observationRange> </ referenceRange> </observation> </component> </ organizer> </entry> <entry> <organizer moodCode="EVN " classCode="BATTERY"> <templateId root=" 2.16.840.1.554111.10.20.22.4.1" /> <id nullFlavor="NA&quot ; /> <code codeSystem="local" code="GHGLUMON" displayName="GLUCOSE (POC)" /> <statusCode code=" completed" /> <component> <observation moodCode=& quot;EVN" classCode="OBS"> <templateId root=" 2.16.840.1.611798.10.20.22.4.2" /> <id nullFlavor="NA& quot; /> <code codeSystem="local" code="GHGLUMON& quot; displayName="GLUCOSE (POC)" /> <statusCode code=& quot;completed" /> <effectiveTime value="684882771699& quot; /> <value unit="mg/dL" xsi:type="PQ" value="507" /> <interpretationCode codeSystem=" local" code="" /> <referenceRange> <observationRange> <text>70-99</text> </ observationRange> </referenceRange> </observation&gt ; </component> </organizer> </entry> <entry> <organizer moodCode="EVN" classCode="BATTERY"> <templateId root="2.16.840.1.202256.10.20.22.4.1" /> < id nullFlavor="NA" /> <code codeSystem="local" code= "GHGLUMON" displayName="GLUCOSE (POC)" /> < statusCode code="completed" /> <component> < observation moodCode="EVN" classCode="OBS"> < templateId root="2.16.840.1.874506.10.20.22.4.2" /> < id nullFlavor="NA" /> <code codeSystem="local&quot ; code="GHGLUMON" displayName="GLUCOSE (POC)" /> <statusCode code="completed" /> <effectiveTime value="805865184745" /> <value unit="mg/dL" xsi:type="PQ" value="207" /> < interpretationCode codeSystem="local" code="*" /> <referenceRange> <observationRange> < text>70-99</text> </observationRange> </ referenceRange> </observation> </component> </ organizer> </entry> <entry> <organizer moodCode="EVN " classCode="BATTERY"> <templateId root=" 2.16.840.1.583796.10.20.22.4.1" /> <id nullFlavor="NA&quot ; /> <code codeSystem="local" code="UA" displayName="URINALYSIS, ROUTINE" /> <statusCode code=&quot ;completed" /> <component> <observation moodCode=& quot;EVN" classCode="OBS"> <templateId root=" 2.16.840.1.101088.10.20.22.4.2" /> <id nullFlavor="NA& quot; /> <code codeSystem="local" code="LEUESU& quot; displayName="UA LEUKOCYTE ESTERASE DIPSTICK" /> < statusCode code="completed" /> <effectiveTime value=& quot;141136198013" /> <value unit="" xsi:type=& quot;PQ" value="2+" /> <interpretationCode codeSystem="local" code="*" /> < referenceRange> <observationRange> <text> NEGATIVE</text> </observationRange> </ referenceRange> </observation> </component> < component> <observation moodCode="EVN" classCode=" OBS"> <templateId root="2.16.840.1.669269.10.20.22.4.2& quot; /> <id nullFlavor="NA" /> <code codeSystem="local" code="NITRIU" displayName="UA NITRITE DIPSTICK" /> <statusCode code="completed" /> <effectiveTime value="512549421897" /> & lt;value unit="" xsi:type="PQ" value="POSITIVE" /& gt; <interpretationCode codeSystem="local" code="*& quot; /> <referenceRange> <observationRange> <text>NEGATIVE</text> </observationRange&gt ; </referenceRange> </observation> </ component> <component> <observation moodCode="EVN& quot; classCode="OBS"> <templateId root=" 2.16.840.1.650402.10..22.4.2" /> <id nullFlavor="NA& quot; /> <code codeSystem="local" code="PROTEIU& quot; displayName="UA PROTEIN DIPSTICK" /> <statusCode code="completed" /> <effectiveTime value=" 565788584452" /> <value unit="" xsi:type="PQ& quot; value="TRACE" /> <referenceRange> & lt;observationRange> <text>NEGATIVE</text> </observationRange> </referenceRange> </ observation> </component> <component> < observation moodCode="EVN" classCode="OBS">< templateId root="2.16.840.1.583806.10.20.22.4.2" /> < id nullFlavor="NA" /> <code codeSystem="local&quot ; code="DGLUU" displayName="UA GLUCOSE DIPSTICK" /> <statusCode code="completed" /><effectiveTime value=& quot;092597425405" /> <value unit="" xsi:type=& quot;PQ" value="NEGATIVE" /> <referenceRange> <observationRange> <text>NEGATIVE</text& gt; </observationRange> </referenceRange> & lt;/observation> </component> <component> < observation moodCode="EVN" classCode="OBS"> < templateId root="2.16.840.1.346028.10.20.22.4.2" /> < id nullFlavor="NA" /> <code codeSystem="local&quot ; code="KETONU" displayName="UA KETONE DIPSTICK" /> <statusCode code="completed" /> <effectiveTime value="603079068367" /> <value unit="" xsi: type="PQ" value="TRACE" /> < interpretationCode codeSystem="local" code="*" /> <referenceRange> <observationRange> <text> NEGATIVE</text> </observationRange> </ referenceRange> </observation> </component> < component> <observation moodCode="EVN" classCode=" OBS"> <templateId root="2.16.840.1.795686.10.20.22.4.2& quot; /> <id nullFlavor="NA" /> <code codeSystem="local" code="UROBILU" displayName="UA UROBILINOGEN DIPSTICK"/> <statusCode code="completed& quot; /> <effectiveTime value="269483392404" /> <value unit="" xsi:type="PQ" value="NORMAL& quot; /> <referenceRange> <observationRange> <text>NORMAL</text> </observationRange& gt; </referenceRange> </observation> </ component> <component> <observation moodCode="EVN& quot; classCode="OBS"> <templateId root=" 2.16.840.1.736489.10.20.22.4.2" /> <id nullFlavor="NA& quot; /> <code codeSystem="local" code="BILU&quot ; displayName="UA BILIRUBIN DIPSTICK" /> <statusCode code=& quot;completed" /> <effectiveTime value="643952047136& quot; /> <value unit="" xsi:type="PQ" value=& quot;NEGATIVE" /> <referenceRange> < observationRange> <text>NEGATIVE</text> & lt;/observationRange> </referenceRange> </ observation> </component> <component> < observation moodCode="EVN" classCode="OBS"> < templateId root="2.16.840.1.007928.10.20.22.4.2" /> < id nullFlavor="NA" /> <code codeSystem="local&quot ; code="HILDA" displayName="UA BLOOD DIPSTICK" /> <statusCode code="completed" /> <effectiveTime value ="627183204000" /> <value unit="" xsi:type=& quot;PQ" value="3+" /> <interpretationCode codeSystem="local" code="*" /> < referenceRange> <observationRange> <text> NEGATIVE</text> </observationRange> </ referenceRange> </observation> </component> < component> <observation moodCode="EVN" classCode=" OBS"> <templateId root="2.16.840.1.825894.10..22.4.2& quot; /> <id nullFlavor="NA" /> <code codeSystem="local" code="SPGRU" displayName="UA SPECIFIC GRAVITY" /> <statusCode code="completed" /> <effectiveTime value="406408824148" /> & lt;value unit="" xsi:type="PQ" value="1.015" /&gt ; <referenceRange> <observationRange> < text>1.015-1.025</text> </observationRange> & lt;/referenceRange> </observation> </component> & lt;component> <observation moodCode="EVN" classCode=&quot ;OBS"> <templateId root="2.16.840.1.294235.10.20.22.4.2& quot; /> <id nullFlavor="NA" /> <code codeSystem="local" code="CLEMENTINE" displayName="UR PH" /> <statusCode code="completed" /> < effectiveTime value="035930010027" /> <value unit=&quot ;" xsi:type="PQ" value="5.0" /> < referenceRange> <observationRange> <text> 5.0-7.0</text> </observationRange> </ referenceRange> </observation> </component> </ organizer> </entry> <entry> <organizer moodCode="EVN " classCode="BATTERY"> <templateId root=" 2.16.840.1.676831.10.20.22.4.1" /> <id nullFlavor="NA&quot ; /> <code codeSystem="local" code="UAMICRO" displayName="UA MICROSCOPIC" /> <statusCode code=" completed" /> <component> <observation moodCode=& quot;EVN" classCode="OBS"> <templateId root=" 2.16.840.1.694153.10.20.22.4.2" /> <id nullFlavor="NA& quot; /> <code codeSystem="local" code="AMORPU& quot; displayName="UA AMORPHOUS SEDIMENT" /> < statusCode code="completed" /> <effectiveTime value=& quot;663669442713" /> <value unit="" xsi:type=& quot;PQ" value="NEGATIVE" /> <referenceRange> <observationRange> <text /> </ observationRange> </referenceRange> </observation&gt ; </component> <component> <observation moodCode ="EVN" classCode="OBS"> <templateId root=& quot;2.16.840.1.661867.10.20.22.4.2" /> <id nullFlavor=&quot ;NA" /> <code codeSystem="local" code="BACU& quot; displayName="UA BACTERIA" /> <statusCode code=& quot;completed" /> <effectiveTime value="690899498915& quot; /> <value unit="" xsi:type="PQ" value=& quot;3+" /> <interpretationCode codeSystem="local" code=& quot;*" /> <referenceRange> < observationRange> <text>NEGATIVE</text> </ observationRange> </referenceRange> </observation&gt ; </component> <component> <observation moodCode ="EVN" classCode="OBS"> <templateId root=& quot;2.16.840.1.202328.10.20.22.4.2" /><id nullFlavor="NA" /> <code codeSystem="local" code="EPIU" displayName="UA EPITHELIAL CELLS" /> <statusCode code=& quot;completed" /> <effectiveTime value="068621082343& quot; /> <value unit="epi/hpf" xsi:type="PQ" value="3+" /> <interpretationCode codeSystem=" local" code="*" /> <referenceRange> <observationRange> <text>0 - 1+</text> </observationRange> </referenceRange> </ observation> </component> <component> < observation moodCode="EVN" classCode="OBS"> < templateId root="2.16.840.1.584542.10.20.22.4.2" /> < id nullFlavor="NA" /> <code codeSystem="local&quot ; code="MUCUSU" displayName="UA MUCUS" /> < statusCode code="completed" /> <effectiveTime value=& quot;615363080987" /> <value unit="" xsi:type=& quot;PQ" value="NEGATIVE" /> <referenceRange> <observationRange> <text>NEG TO 1+</text& gt; </observationRange> </referenceRange> </observation> </component> <component>< observation moodCode="EVN" classCode="OBS"> < templateId root="2.16.840.1.730981.10.20.22.4.2" /> < id nullFlavor="NA" /> <code codeSystem="local" code ="RBCU" displayName="UA RBC" /> <statusCode code="completed" /> <effectiveTime value=" 562990331499" /> <value unit="rbc/hpf" xsi:type=& quot;PQ" value="3-5" /> <interpretationCode codeSystem="local" code="*" /> <referenceRange > <observationRange> <text>0 - 3</text > </observationRange> </referenceRange> </observation> </component> <component> & lt;observation moodCode="EVN" classCode="OBS"> & lt;templateId root="2.16.840.1.539368.10..22.4.2" /> &lt ;id nullFlavor="NA" /> <code codeSystem="local& quot; code="TRICHOU" displayName="UA TRICHOMONAS" /> <statusCode code="completed" /> < effectiveTime value="490355285228" /> <value unit="" xsi:type="PQ" value="NEGATIVE" /> < referenceRange> <observationRange> <text> NEGATIVE</text> </observationRange> </ referenceRange> </observation> </component> < component> <observation moodCode="EVN" classCode=" OBS"> <templateId root="2.16.840.1.567099.10.20.22.4.2& quot; /> <id nullFlavor="NA" /> <code codeSystem="local" code="UAVOL" displayName="UA VOLUME FOR EXAM" /> <statusCode code="completed" /> <effectiveTime value="083530083671" /> < value unit="mL" xsi:type="PQ" value="12.0" /> <referenceRange> <observationRange> <text>(12mL STD)</text></observationRange> </ referenceRange> </observation> </component> < component> <observation moodCode="EVN" classCode=" OBS"> <templateId root="2.16.840.1.376779.10.20.22.4.2& quot; /> <id nullFlavor="NA" /> <code codeSystem="local" code="URIU" displayName="UA URIC ACID CRYSTALS" /> <statusCode code="completed" /& gt; <effectiveTime value="276466969450" /> &lt ;value unit="" xsi:type="PQ" value="PRESENT" /&gt ; <interpretationCode codeSystem="local" code="*&quot ; /> <referenceRange> <observationRange> <text>NEGATIVE</text> </observationRange&gt ; </referenceRange> </observation> </ component> <component> <observation moodCode="EVN& quot; classCode="OBS"> <templateId root=" 2.16.840.1.195018.10.20.22.4.2" /> <id nullFlavor="NA& quot; /> <code codeSystem="local" code="WBCU&quot ; displayName="UAWBC" /> <statusCode code=" completed" /> <effectiveTime value="141988397055" /> <value unit="wbc/hpf" xsi:type="PQ" value= "10-20" /> <interpretationCode codeSystem="local& quot; code="*" /> <referenceRange> < observationRange> <text>0 - 5</text> < /observationRange> </referenceRange> </observation> </component> <component> <observation moodCode= "EVN" classCode="OBS"> <templateId root=&quot ;2.16.840.1.052054.10.20.22.4.2" /> <id nullFlavor="NA& quot; /> <code codeSystem="local" code="YEASU&quot ; displayName="UA YEAST" /> <statusCode code=" completed" /> <effectiveTime value="660390661705" /> <value unit="" xsi:type="PQ" value=" NEGATIVE" /> <referenceRange> <observationRange& gt; <text>NEGATIVE</text> </ observationRange> </referenceRange> </observation&gt ; </component> </organizer> </entry> <entry> <organizer moodCode="EVN" classCode="BATTERY"> <templateId root="2.16.840.1.261272.10.20.22.4.1" /> < id nullFlavor="NA" /> <code codeSystem="local" code="FLORI" displayName="UR SODIUM" /> < statusCode code="completed" /> <component> < observation moodCode="EVN"classCode="OBS"> < templateId root="2.16.840.1.175263.10.20.22.4.2" /> < id nullFlavor="NA" /> <code codeSystem="local&quot ; code="NAUCOM" displayName="UR SODIUM COMMENT" /> <statusCode code="completed" /> <effectiveTime value="145584730988" /> <value unit="" xsi:type=" PQ" value="RANDOM" /> <referenceRange> <observationRange> <text /> </ observationRange> </referenceRange> </observation&gt ; </component> <component> <observation moodCode=& quot;EVN" classCode="OBS"> <templateId root=" 2.16.840.1.542670.10.20.22.4.2" /> <id nullFlavor="NA& quot; /> <code codeSystem="local" code="NAULEV& quot; displayName="UR SODIUM LEVEL" /> <statusCode code ="completed" /> <effectiveTime value="870471132348&quot ; /> <value unit="mmol/L" xsi:type="PQ" value ="47" /> <interpretationCode codeSystem="local& quot; code="*" /> <referenceRange> < observationRange> <text>20-40</text> < /observationRange> </referenceRange> </observation& gt; </component> </organizer> </entry> <entry&gt ; <organizer moodCode="EVN" classCode="BATTERY"> & lt;templateId root="216.840.1.949811.10.20.22.4.1" /> <id nullFlavor="NA" /> <code codeSystem="local" code= "CREATU" displayName="UR CREATININE" /> < statusCode code="completed" /> <component> < observation moodCode="EVN" classCode="OBS"> < templateIdroot="2..840.1.797115.10..22.4.2" /> <id nullFlavor="NA" /> <code codeSystem="local" code="CREATUCOM" displayName="UR CREATININE COMMENT" /> <statusCode code="completed" /> < effectiveTime value="559713045737" /> <value unit=&quot ;" xsi:type="PQ" value="RANDOM" /> < referenceRange> <observationRange> <text /& gt; </observationRange> </referenceRange> </observation> </component> <component> &lt ;observation moodCode="EVN" classCode="OBS"> &lt ;templateId root="2.16.840.1.850907.10.20.22.4.2" /> < id nullFlavor="NA" /> <code codeSystem="local&quot ; code="CREATULEV" displayName="UR CREATININE LEVEL" /> <statusCode code="completed" /> < effectiveTime value="654732582287" /> <value unit=&quot ;mg/dL" xsi:type="PQ" value="90.4" /> < referenceRange> <observationRange> <text> 44-467</text> </observationRange> </ referenceRange> </observation> </component> </ organizer> </entry> <entry> <organizer moodCode="EVN& quot; classCode="BATTERY"> <templateId root=" 2.16.840.1.041164.10.20.22.4.1" /> <id nullFlavor="NA&quot ; /> <code codeSystem="local" code="UC" displayName="URINE CULTURE" /> <statusCode code="completed " /> <component> <observation moodCode="EVN& quot; classCode="OBS"> <templateId root=" 2.16.840.1.323166.10.20.22.4.2" /> <id nullFlavor="NA& quot; /> <code codeSystem="local" code="MB" displayName="Microbiology" /> <statusCode code=" completed" /> <effectiveTime value="915310128742" /> <value xsi:type="ST" value="<pre> <b>URINE CULTURE - CARBAPENEMASE PCR</b> See BelowURINE CULTURE(F) Aarti Date/Time:04/08/2017 15:19 Mara Date/Time: // :SOURCE: URINESPEC DESC: CLEAN CATCHSee BelowURINE CULTURE(F) Aarti Date/Time: 04/08/2017 15:19 Mara Date/Time: 04/12/2017 11:01SOURCE: URINESPEC DESC: CLEAN CATCHTREATMENT OF ASYMPTOMATIC BACTERIURIA IS NOT USUALLYCLINICALLY INDICATED.Organism #1 ENTEROBACTER CLOACAE COMPLEXCOLONY COUNT>100,000 CFU/ML COMMENTS ESBL NOT CONFIRMED InterpCEFEPIME VITEK <=1 RCIPROFLOXACIN VITEK <=0.25 SGENTAMICIN VITEK <=1 SMEROPENEM VITEK <=0.25 RNITROFURANTOIN VITEK 64 IPIPERACILLIN/TAZOBZCTAM VITEK 32 RTRIMETH/SULFA VITEK <=20 SOrganism #2 PSEUDOMONAS AERUGINOSACOLONY COUNT &amp ;gt;100,000 CFU/ML InterpCEFEPIME VITEK 2 SCIPROFLOXACIN VITEK <=0.25 SGENTAMICIN VITEK <=1 SPIPERACILLIN/TAZOBZCTAM VITEK 8 STOBRAMYCIN VITEK <=1 [facility] [place], [place] [address]Hyw BelowCARBAPENEMASE PCR(F) Aarti Date/Time: 04/08/2017 15:19 Mara Date/ Time: // :SOURCE: URINESPEC DESC: CLEAN CATCHSee BelowCARBAPENEMASE PCR(F) Aarti Date/Time: 04/08/2017 15:19 Mara Date/Time: 04/12/2017 11:01SOURCE: URINESPEC DESC: CLEAN CATCHIMIPENEMASE CLASS MBLIMP TARGET DNA SEQUENCE NOT DETECTEDKLEP PNEUMO CARBAPENEMASEKPC TARGET DNA SEQUENCE NOT DETECTEDNEW DELHI METALLO-BLNDM TARGET DNA SEQUENCE NOT DETECTEDORGANISM:ENTEROBACTER CLOACAE COMPLEXCLASS D OXACILLINASEOXA-48 TARGET DNA SEQUENCE NOT DETECTEDVERONA INTEGRIN-MEDIATEDVIM TARGET DNA SEQUENCE NOT DETECTEDCHI [facility] [place] [address]</pre> " /> <referenceRange> <observationRange&gt ; <text /> </observationRange> < /referenceRange> </observation> </component> </ organizer> </entry> <entry> <organizer moodCode="EVN " classCode="BATTERY"> <templateId root=" 2.16.840.1.473514.10.20.22.4.1" /> <id nullFlavor="NA&quot ; /> <code codeSystem="local" code="GHGLUMON" displayName="GLUCOSE (POC)" /> <statusCode code=" completed" /> <component> <observation moodCode=&quot ;EVN" classCode="OBS"> <templateId root=" 2.16.840.1.224830.10.20.22.4.2" /> <id nullFlavor="NA& quot; /> <code codeSystem="local" code="GHGLUMON& quot; displayName="GLUCOSE (POC)" /> <statusCode code=& quot;completed" /> <effectiveTime value="467224643961" /> <value unit="mg/dL" xsi:type="PQ" value=& quot;194" /> <interpretationCode codeSystem="local&quot ; code="*" /> <referenceRange> < observationRange> <text>70-99</text> < /observationRange> </referenceRange> </observation& gt; </component> </organizer> </entry> <entry&gt ; <organizer moodCode="EVN" classCode="BATTERY"> & lt;templateId root="2.16.840.1.094806.10.20.22.4.1" /> <id nullFlavor="NA" /> <code codeSystem="local" code= "GHGLUMON" displayName="GLUCOSE (POC)" /> < statusCode code="completed" /> <component> < observation moodCode="EVN" classCode="OBS"> < templateId root="2.16.840.1.331434.10.20.22.4.2" /> < id nullFlavor="NA" /> <code codeSystem="local&quot ; code="GHGLUMON" displayName="GLUCOSE (POC)" /> <statusCode code="completed" /> <effectiveTime value="275604585452" /> <value unit="mg/dL" xsi:type="PQ" value="132" /> < interpretationCode codeSystem="local" code="*" /> <referenceRange> <observationRange> < text>70-99</text> </observationRange> </ referenceRange> </observation> </component> </ organizer> </entry> <entry> <organizer moodCode="EVN " classCode="BATTERY"> <templateId root=" 2.16.840.1.560826.10.20.22.4.1" /> <id nullFlavor="NA&quot ; /> <code codeSystem="local" code="CBCD" displayName="CBC W/DIFF" /> <statusCode code="completed& quot; /> <component> <observation moodCode="EVN& quot; classCode="OBS"> <templateId root=" 2.16.840.1.880399.10.20.22.4.2" /> <id nullFlavor="NA& quot; /> <code codeSystem="local" code="CBCCOM& quot; displayName="COMMENT" /> <statusCode code=" completed" /> <effectiveTime value="045197801911" /> <value unit="" xsi:type="PQ" value=" REVIEWED" /> <referenceRange> <observationRange& gt; <text /> </observationRange> </ referenceRange> </observation> </component> < component> <observation moodCode="EVN" classCode=" OBS"> <templateId root="2.16.840.1.327161.10.20.22.4.2& quot; /> <id nullFlavor="NA" /> <code codeSystem="local" code="EO#" displayName="EOSINOPHIL # " /> <statusCode code="completed" /> & lt;effectiveTime value="574897569291" /> <value unit=& quot;k/cumm" xsi:type="PQ" value="0.1" /> & lt;referenceRange> <observationRange> <text>0.1- 0.5</text> </observationRange> </ referenceRange> </observation> </component> < component> <observation moodCode="EVN" classCode=" OBS"> <templateId root="2.16.840.1.122895.10.20.22.4.2" / > <id nullFlavor="NA" /> <code codeSystem="local" code="EO%" displayName=" EOSINOPHIL %" /> <statusCode code="completed& quot; /> <effectiveTime value="829664486035" /> <value unit="%" xsi:type="PQ" value="1 " /> <interpretationCode codeSystem="local" code=& quot;*" /> <referenceRange> < observationRange> <text>2-4</text> </ observationRange> </referenceRange> </observation&gt ; </component> <component> <observation moodCode=& quot;EVN" classCode="OBS"> <templateId root=" 2.16.840.1.740456.10..22.4.2" /> <id nullFlavor="NA& quot; /> <code codeSystem="local" code="GR#" displayName="GRANULOCYTE #" /> <statusCode code=" completed" /> <effectiveTime value="011694085002" /> <value unit="k/cumm" xsi:type="PQ" value=& quot;8.4" /> <referenceRange> < observationRange> <text>2.0-9.0</text> </ observationRange> </referenceRange> </observation&gt ; </component> <component> <observation moodCode ="EVN" classCode="OBS"> <templateId root=& quot;2.16.840.1.848813.10.20.22.4.2" /> <id nullFlavor=&quot ;NA" /> <codecodeSystem="local" code="GR& #37;" displayName="GRANULOCYTE %" /> < statusCode code="completed" /> <effectiveTime value=& quot;704969500726" /> <value unit="%" xsi: type="PQ" value="75" /> <referenceRange> <observationRange> <text>50-75</text> </observationRange> </referenceRange> </ observation> </component> <component> < observation moodCode="EVN" classCode="OBS"> < templateId root="2.16.840.1.185904.10.20.22.4.2" /> < id nullFlavor="NA" /> <code codeSystem="local&quot ; code="LY#" displayName="LYMPHOCYTE #" /><statusCode code="completed" /> <effectiveTime value=" 069602510505" /> <value unit="k/cumm" xsi:type=& quot;PQ" value="1.7" /> <referenceRange> <observationRange> <text>1.0-4.0</text> </observationRange> </referenceRange> </ observation> </component> <component> < observation moodCode="EVN" classCode="OBS"> < templateId root="2.16.840.1.793219.10.20.22.4.2" /> < id nullFlavor="NA" /> <code codeSystem="local&quot ; code="LY%" displayName="LYMPHOCYTE %" /&gt ; <statusCode code="completed" /> < effectiveTime value="370112862043" /> <value unit=&quot ;%" xsi:type="PQ" value="15" /> &lt ;interpretationCode codeSystem="local" code="*" /> <referenceRange> <observationRange> < text>20-30</text> </observationRange> </ referenceRange> </observation> </component> < component> <observation moodCode="EVN" classCode=" OBS"> <templateId root="2.16.840.1.912306.10.20.22.4.2& quot; /> <id nullFlavor="NA" /> <code codeSystem="local" code="MCH" displayName="MEAN CELL HGB" /> <statusCode code="completed" /> <effectiveTime value="097209223737" /> <value unit="pg" xsi:type="PQ" value="27.8" /> <referenceRange> <observationRange> < text>27.0-33.0</text> </observationRange> &lt ;/referenceRange> </observation> </component> & lt;component> <observation moodCode="EVN" classCode=&quot ;OBS"> <templateId root="2.16.840.1.653053.10.20.22.4.2 " /> <id nullFlavor="NA" /> <code codeSystem="local" code="MCHC" displayName="MEAN CELL HGB CONCENTRATION" /> <statusCode code="completed&quot ; /> <effectiveTime value="860280327660" /> <value unit="g/dL" xsi:type="PQ" value="30.1&quot ; /> <interpretationCode codeSystem="local" code=" *" /> <referenceRange> <observationRange&gt ; <text>32.0-37.0</text> </ observationRange> </referenceRange> </observation&gt ; </component> <component> <observation moodCode ="EVN" classCode="OBS"> <templateId root=& quot;2.16.840.1.530016.10.20.22.4.2" /> <id nullFlavor=&quot ;NA" /> <code codeSystem="local" code="MCV& quot; displayName="MEAN CELL VOLUME" /> <statusCode code="completed" /> <effectiveTime value=" 069101458465" /> <value unit="fl" xsi:type=" PQ" value="92.4" /> <referenceRange> <observationRange> <text>80.0-100.0</text> </observationRange> </referenceRange> </ observation> </component> <component> < observation moodCode="EVN" classCode="OBS"> < templateId root="2.16.840.1.946188.10.20.22.4.2" /> < id nullFlavor="NA" /> <code codeSystem="local" code="MO#" displayName="MONOCYTE #" /> < statusCode code="completed" /> <effectiveTime value=& quot;806305117761" /> <value unit="k/cumm" xsi: type="PQ" value="1.0" /> <referenceRange> <observationRange> <text>0.1-1.0</text> </observationRange> </referenceRange> </ observation> </component> <component> < observationmoodCode="EVN" classCode="OBS"> < templateId root="2.16.840.1.673865.10.20.22.4.2" /> < id nullFlavor="NA" /> <code codeSystem="local&quot ; code="MO%" displayName="MONOCYTE %" /> <statusCode code="completed" /> < effectiveTime value="229323847923" /> <value unit=&quot ;%" xsi:type="PQ" value="9" /> < interpretationCode codeSystem="local" code="*" /> <referenceRange> <observationRange> < text>4-6</text> </observationRange> </ referenceRange> </observation> </component> < component> <observation moodCode="EVN" classCode=" OBS"> <templateId root="2.16.840.1.018815.10.20.22.4.2& quot; /> <id nullFlavor="NA" /> <code codeSystem="local" code="RBC" displayName="RED BLOOD CELL" /> <statusCode code="completed" /> <effectiveTime value="386830386232" /> <value unit="m/cumm" xsi:type="PQ" value="3.31" /> <interpretationCode codeSystem="local" code="*" /& gt; <referenceRange> <observationRange> <text>4.00-6.00</text> </observationRange> </referenceRange> </observation> </component& gt; <component> <observation moodCode="EVN" classCode="OBS"> <templateId root=" 2.16.840.1.261451.10.20.22.4.2" /> <id nullFlavor="NA& quot; /> <code codeSystem="local" code="RDW" displayName="RED CELL DISTRIBUTION WIDTH" /> < statusCode code="completed" /> <effectiveTime value=& quot;568721021940" /> <value unit="%" xsi: type="PQ" value="16.9" /> < interpretationCode codeSystem="local" code="*" /> <referenceRange><observationRange> <text>11.0- 15.6</text> </observationRange> </ referenceRange> </observation> </component> < component> <observation moodCode="EVN" classCode=" OBS"> <templateId root="2.16.840.1.171132.10.20.22.4.2" /& gt; <id nullFlavor="NA" /> <code codeSystem ="local" code="WBC" displayName="WHITE BLOOD CELL&quot ; /> <statusCode code="completed" /> < effectiveTime value="145787331339" /> <value unit=&quot ;k/cumm" xsi:type="PQ" value="11.3" /> < interpretationCode codeSystem="local" code="*" /> <referenceRange> <observationRange> < text>5.0-10.0</text> </observationRange> < /referenceRange> </observation> </component> &lt ;component> <observation moodCode="EVN" classCode=" OBS"> <templateId root="2.16.840.1.817298.10.20.22.4.2& quot; /> <id nullFlavor="NA" /><code codeSystem=& quot;local" code="HGBT" displayName="HEMOGLOBIN" /> <statusCode code="completed" /> < effectiveTime value="670259221723" /> <value unit=&quot ;gm/dL" xsi:type="PQ" value="9.2" /> < interpretationCode codeSystem="local" code="*" /> & lt;referenceRange> <observationRange> <text& gt;12.0-16.0</text> </observationRange> </ referenceRange> </observation> </component> < component> <observation moodCode="EVN" classCode=" OBS"> <templateId root="2.16.840.1.491365.10.20.22.4.2& quot; /> <id nullFlavor="NA" /> <code codeSystem="local" code="HCTT" displayName="HEMATOCRIT& quot; /> <statusCode code="completed" /> & lt;effectiveTime value="793931123870" /> <value unit=& quot;%" xsi:type="PQ" value="30.6" /> <interpretationCode codeSystem="local" code="*" /&gt ; <referenceRange> <observationRange> <text>37.0-47.0</text> </observationRange> </referenceRange> </observation> </component&gt ; <component> <observation moodCode="EVN" classCode="OBS"> <templateId root=" 2.16.840.1.100482.10.20.22.4.2" /> <id nullFlavor="NA& quot; /> <code codeSystem="local" code="PLTT&quot ; displayName="PLATELET COUNT" /> <statusCode code=& quot;completed" /> <effectiveTime value="614938363884& quot; /> <value unit="k/cumm" xsi:type="PQ" value="333" /> <referenceRange><observationRange& gt; <text>150-450</text> </ observationRange> </referenceRange> </observation&gt ; </component> </organizer> </entry> <entry> <organizer moodCode="EVN" classCode="BATTERY"> <templateId root="2.16.840.1.501389.10.20.22.4.1" /> < id nullFlavor="NA" /> <code codeSystem="local" code="METAB" displayName="METABOLIC PANEL, BASIC" /> <statusCode code="completed"/> <component> & lt;observation moodCode="EVN" classCode="OBS"> & lt;templateId root="2.16.840.1.831232.10.20.22.4.2" /> &lt ;id nullFlavor="NA" /> <code codeSystem="local& quot; code="K" displayName="POTASSIUM" /> < statusCode code="completed" /> <effectiveTime value=" 844753900934" /> <value unit="mmol/L" xsi:type=& quot;PQ" value="4.6" /> <referenceRange> <observationRange> <text>3.5-5.3</text> </observationRange> </referenceRange> </ observation> </component> <component> < observation moodCode="EVN" classCode="OBS"> < templateId root="2.16.840.1.869506.10.20.22.4.2" /> < id nullFlavor="NA" /> <code codeSystem="local&quot ; code="eGFR" displayName="EST GFR (MDRD)" /> & lt;statusCode code="completed" /> <effectiveTime value= "310183428500" /> <value unit="mL/min" xsi: type="PQ" value="40" /> <interpretationCode codeSystem="local" code="*" /> < referenceRange> <observationRange> <text> > 59</text> </observationRange> </ referenceRange> </observation> </component> < component> <observation moodCode="EVN" classCode=" OBS"> <templateId root="2.16.840.1.487829.10.20.22.4.2& quot; /> <id nullFlavor="NA" /> <code codeSystem="local" code="GAP" displayName="ANION GAP& quot; /> <statusCode code="completed" /> & lt;effectiveTime value="292207177798" /> <value unit=& quot;mmol/L" xsi:type="PQ" value="9" /> < referenceRange> <observationRange> <text> 5-15</text> </observationRange> </ referenceRange> </observation> </component> < component> <observation moodCode="EVN" classCode=" OBS"> <templateId root="2.16.840.1.262419.10.20.22.4.2& quot; /> <id nullFlavor="NA" /> <code codeSystem="local" code="eCrCl" displayName="EST CrCl ( CG)" /> <statusCode code="completed" /> <effectiveTime value="917165164417" /> <value unit="mL/min" xsi:type="PQ" value="56" /> <interpretationCode codeSystem="local" code="*" /&gt ; <referenceRange> <observationRange> <text>> 59</text> </observationRange> </referenceRange> </observation> </component> <component> <observation moodCode="EVN" classCode="OBS"> <templateId root=" 2..840.1.115042.10..22.4.2" /> <id nullFlavor="NA& quot; /> <code codeSystem="local" code="GLU" displayName="GLUCOSE" /> <statusCode code=" completed" /> <effectiveTime value="783091542896" /> <value unit="mg/dL" xsi:type="PQ" value=& quot;110" /> <interpretationCode codeSystem="local&quot ; code="*" /> <referenceRange> < observationRange> <text>70-99</text> </ observationRange> </referenceRange> </observation&gt ; </component> <component> <observation moodCode ="EVN" classCode="OBS"> <templateId root=& quot;2.16.840.1.216154.10.20.22.4.2" /> <id nullFlavor=&quot ;NA" /> <code codeSystem="local" code="CA& quot; displayName="CALCIUM" /> <statusCode code="completed& quot; /> <effectiveTime value="169410883678" /> <value unit="mg/dL" xsi:type="PQ" value="8.9& quot; /> <referenceRange> <observationRange> <text>8.5-10.1</text> </observationRange > </referenceRange> </observation> </ component> <component> <observation moodCode="EVN& quot; classCode="OBS"> <templateId root=" 2.16.840.1.032597.10.20.22.4.2" /> <id nullFlavor="NA& quot; /> <code codeSystem="local" code="BUN" displayName="BLOOD UREA NITROGEN" /> <statusCode code=& quot;completed" /> <effectiveTime value="831549483102& quot; /> <value unit="mg/dL" xsi:type="PQ" value="53" /> <interpretationCode codeSystem="local" code="*" /> <referenceRange> < observationRange> <text>7-20</text> </ observationRange> </referenceRange> </observation&gt ; </component> <component> <observation moodCode ="EVN" classCode="OBS"> <templateId root=& quot;2.16.840.1.401051.10.20.22.4.2" /> <id nullFlavor=&quot ;NA" /> <code codeSystem="local" code="CREAT& quot; displayName="CREATININE" /> <statusCode code=& quot;completed" /> <effectiveTime value="610195683821& quot; /> <value unit="mg/dL" xsi:type="PQ" value="1.3" /> <interpretationCode codeSystem=" local" code="*" /> <referenceRange> <observationRange> <text>0.6-1.0</text> </observationRange></referenceRange> </observation> </component> <component> <observation moodCode=& quot;EVN" classCode="OBS"> <templateId root=" 2.16.840.1.568745.10.20.22.4.2" /> <id nullFlavor="NA& quot; /> <code codeSystem="local" code="NA" displayName="SODIUM" /> <statusCode code=" completed" /> <effectiveTime value="096602915416" /> <value unit="mmol/L" xsi:type="PQ" value=& quot;144" /> <referenceRange> < observationRange> <text>135-148</text> & lt;/observationRange> </referenceRange> </observation& gt; </component> <component> <observation moodCode="EVN" classCode="OBS"> <templateId root="2.16.840.1.012368.10.20.22.4.2" /> <id nullFlavor ="NA" /> <code codeSystem="local" code=" CL" displayName="CHLORIDE" /> <statusCode code=& quot;completed" /> <effectiveTime value="181115843966& quot; /> <value unit="mmol/L" xsi:type="PQ" value="108" /> <referenceRange> < observationRange> <text>98-110</text> &lt ;/observationRange> </referenceRange> </observation& gt; </component> <component> <observation moodCode="EVN" classCode="OBS"> <templateId root="2.16.840.1.758571.10..22.4.2" /> <id nullFlavor ="NA" /> <code codeSystem="local" code=" CO2" displayName="CARBON DIOXIDE" /> <statusCode code="completed" /> <effectiveTime value=" 803628636551" /> <value unit="mmol/L" xsi:type=& quot;PQ" value="27" /> <referenceRange> <observationRange> <text>21-32</text> </observationRange> </referenceRange> </ observation> </component> </organizer> </entry> & lt;entry> <organizer moodCode="EVN" classCode="BATTERY& quot;> <templateId root="2.16.840.1.692065.10.20.22.4.1" /& gt; <id nullFlavor="NA" /> <code codeSystem=" local" code="GHGLUMON" displayName="GLUCOSE (POC)" /&gt ; <statusCode code="completed" /> <component> <observation moodCode="EVN" classCode="OBS"> <templateId root="216.840.1.451639.10.20.22.4.2" /> & lt;id nullFlavor="NA" /> <code codeSystem="local& quot; code="GHGLUMON" displayName="GLUCOSE (POC)" /> <statusCode code="completed" /> < effectiveTime value="992523206488" /> <value unit=&quot ;mg/dL" xsi:type="PQ" value="111" /> < interpretationCode codeSystem="local" code="*" /> <referenceRange> <observationRange> < text>70-99</text> </observationRange> </ referenceRange> </observation> </component> </ organizer> </entry> <entry> <organizer moodCode="EVN " classCode="BATTERY"> <templateId root=" 2.16.840.1.405746.10.20.22.4.1" /> <idnullFlavor="NA" /> <code codeSystem="local" code="GHGLUMON" displayName="GLUCOSE (POC)" /> <statusCode code=" completed" /> <component> <observation moodCode=" EVN" classCode="OBS"> <templateId root=" 2.16.840.1.621895.10.20.22.4.2" /> <id nullFlavor="NA& quot; /> <code codeSystem="local" code="GHGLUMON& quot; displayName="GLUCOSE (POC)" /> <statusCode code=& quot;completed" /> <effectiveTime value="558350800476" /& gt; <value unit="mg/dL" xsi:type="PQ" value=& quot;147" /> <interpretationCode codeSystem="local&quot ; code="*" /> <referenceRange> < observationRange> <text>70-99</text> < /observationRange> </referenceRange> </observation& gt; </component> </organizer> </entry></section&gt ; Encounters ACCT No. Visit Discharge Status Pt. Type Provider Facility Loc./Unit Complaint Date/Time [id number] 05/15/2015 06/14/2015 [facility] 00:01:00 23:59:00 JAN LOUIE [id number] 04/23/2015 05/14/2015 [facility] 15:31:00 23:59:00 JAN LOUIE [id number] 04/03/2017 04/09/2017 DIS Inpatient Chen CastanonT4 97 09:34:00 15:30:00 , [facility] [id number] 03/18/2017 03/19/2017 DIS Outpatient Chen CastanonEPO 75 11:42:00 16:30:00 , [facility]
[2017-06-19] MEDS: SALINE FLUSH 10ml SYRINGE IVF PRN (07:47)
[2017-06-19] MEDS ORDERED: ONDANSETRON 4 MG/2 ML INJECTION IVP ONE (07:49)
--- NOTE | 2017-06-19 07:49 | Emergency Department Report ---
Asthma HPI - General Chief Complaint: Medical Emergency Stated Complaint: fever, chills, and nausea Time Seen by Provider: 06/19/17 07:37 Source: patient, EMS, RN notes reviewed, old records reviewed Mode of arrival: EMS Limitations: no limitations - History of Present Illness HPI Narrative: 72yo woman presented to the ER by EMS this AM for evaluation of 'chest pain'. Pt is well-known to this ER; she has numerous, overlapping, contributing co- morbidities - A-fib, morbid obesity, JABARI, chronic O2 requirement (likely COPD?) , DM2 poorly controlled, venous stasis dermatitis, frequent UTIs, h/o sepsis, etc. Pt today c/o chest pain (stated as chest tightness and difficulty getting her breath) since sometime last night. Pt called the nurses at her NH this AM, who in turn contacted EMS. Pt had a 'fever' of 101'F at the [place]; temp of 99'F by EMS. EKG en route was non-diagnostic (pt is s/p pace-maker implantation). Manual BP en route was 200 SBP (with the caveat that they did not have a cuff large enough for pt). Pt has a h/o frequent UTIs, so EMS were concerned for possible sepsis given pts presentation. On arrival, pt is in no acute distress. She is able to provide supplemental PMHx to ER staff and EMS (as they relayed hx and PE). She cont to c/o chest tightness. Is unable to localize her sx further. MD complaint: shortness of breath Onset (ago): hour(s) (12+) Severity: similar to prior Associated symptoms: none - Related Data Home Medications Medication Instructions Recorded Confirmed Cholecalciferol (Vitamin D3) 1,000 unit PO DAILY 02/13/17 06/19/17 [Vitamin D3] Multivit,Calc,Mins/Iron/Folic 1 tab PO DAILY 02/13/17 06/19/17 [Women's Daily Caplet] Sucralfate [Carafate] 1 gm PO BID 02/13/17 06/19/17 Tizanidine HCl 4 mg PO BID PRN 02/13/17 06/19/17 diltiazem CD 240 mg 240 mg PO BID 30 Days #60 03/05/17 06/19/17 capsule,extended release 24 hr Acetaminophen [Pain Reliever] 500 mg PO Q4H PRN 06/19/17 06/19/17 Ferrous Sulfate 325 mg PO DAILY 06/19/17 06/19/17 Furosemide [Lasix] 40 mg PO BID 06/19/17 06/19/17 Gemfibrozil [Lopid] 600 mg PO BID 06/19/17 06/19/17 Insulin Aspart [Novolog Flexpen] 26 unit SQ WB 06/19/17 06/19/17 Insulin Aspart [Novolog Flexpen] 28 unit SQ BID 06/19/17 06/19/17 Insulin Detemir [Levemir Flextouch] 33 unit SQ BID 06/19/17 06/19/17 Levothyroxine Tab [Synthroid] 150 mcg PO ACB 06/19/17 06/19/17 Mag Hydrox/Aluminum Hyd/Simeth 30 ml PO TID PRN 06/19/17 06/19/17 [Alum-Mag Hydroxide-Simeth Liq] Magnesium Oxide [Magnesium] 400 mg PO DAILY 06/19/17 06/19/17 Milk of Magnesia [Mom] 30 ml PO PRN PRN 06/19/17 06/19/17 Pantoprazole Tab [Protonix Tab] 40 mg PO ACB 06/19/17 06/19/17 Potassium Chloride [K-Dur] 20 meq PO BID 06/19/17 06/19/17 PredniSONE [Deltasone] 20 mg PO WB 06/19/17 06/19/17 Senna + Docusate [Senna Plus 1 tab PO HS 06/19/17 06/19/17 Tablet] Previous Rx's Medication Instructions Recorded Nitroglycerin [Nitrostat] 0.4 mg SL Q5MIN3 PRN #25 tab 01/02/17 DiphenhydrAMINE [Benadryl] 50 mg PO HS PRN cap 04/23/17 Ultram (Tramadol) 50 mg tablet 50 mg PO Q6HR PRN #45 tab 05/25/17 [place] 5 mg-acetaminophen 325 mg 1 tab PO Q4H PRN #30 tab 06/01/17 tablet Allergies Allergy/AdvReac Type Severity Reaction Status Date / Time aspirin Allergy Severe Anaphylactic Verified 06/19/17 07:38 Shock levofloxacin [From Levaquin] Allergy Severe Anaphylactic Verified 06/19/17 07:38 Shock Penicillins Allergy Severe Anaphylactic Verified 06/19/17 07:38 Shock Sulfa (Sulfonamide Allergy Severe Anaphylactic Verified 06/19/17 07:38 Antibiotics) Shock Latex, Natural Rubber Allergy Intermediate Rash Verified 06/19/17 07:38 Iybprnu-Hfs-Rud Reductase Allergy Intermediate muscle Verified 06/19/17 07:38 Inhibitor weakness codeine Allergy Mild Nausea and Verified 06/19/17 07:38 Vomiting Iodine and Iodide Containing Allergy Mild Rash Verified 06/19/17 07:38 Produc niacin Allergy Flushing Verified 06/19/17 07:38 butorphanol [From Stadol] AdvReac Severe aggressive Verified 06/19/17 07:38 behavior morphine AdvReac Nausea and Verified 06/19/17 07:38 Vomiting Review of Systems All systems: reviewed and negative except as stated Cardiovascular: Reports: as per HPI, chest pain. Denies: palpitations, dyspnea on exertion, orthopnea, edema, syncope, paroxysmal nocturnal dyspnea Respiratory: Reports: as per HPI, dyspnea. Denies: cough, wheezes, hemoptysis, stridor [facility] Patient Stated Medical History Peripheral Neuropathy Yes Cataracts Yes Macular Degeneration Yes Other HEENT glasses for nearsighted Angina Yes Cardiac Arrhythmia Yes: a fib/flutter Hypertension Yes Bronchitis Yes Sleep Apnea Yes Diabetes Mellitus Type 2 Yes Constipation Yes Gastroesophageal Reflux Yes Disease Other GI Yes: IBS,hemarroids Hx Incontinence Yes Hx Urinary Tract Infection Yes Other Yes: stents after kidney stone removal ,removed Osteoarthritis Yes Other Musculoskeletal Yes: fibrymalgia Sepsis Yes Other Infectious Yes: psorasis Depression Yes Post Menopausal Yes Clinic Medical History Cataracts, bilateral (Acute Medical) Diabetes 1.5, managed as type 2 (Acute Medical) Dyslipidemia (Acute Medical) Fibromyalgia (Acute Medical) Hypertension (Acute Medical) Hypothyroidism (Acute Medical) aquired Idiopathic pancreatitis (Acute Medical) Insomnia (Acute Medical) Osteoarthritis (Acute Medical) Psoriasis arthropathica (Acute Medical) Medical History Updates: A-fib: now s/p ablation and PPM in place. Insulin dependent diabetes mellitus. hypertension. hyperlipidemia. Temporal arteritis : still requiring prednisone. Iron-deficiency anemia. Chronic kidney disease. Recent acute kidney injury. GERD. hypothyroid. anxiety. O2 dependent. Esophagitis. Stable angina. Chronic pain. Vit D deficiency Surgical History: Tubal ligation. Hysterectomy without BSO. Thyroidectomy. Cholecystectomy. Cataract surgery. Pacemaker implantation 2016. Cardioversion 01/01/2017 Family History: Family History Father Blood clots in brain Unknown Hypertension Breast cancer Mother Breast cancer Diabetes Myocardial infarct Stroke - Social History Current residence: Apartment/Private Home Physical Exam - Limitations Limitations: no limitations - General General appearance: alert, in no apparent distress, obese (Morbid) - Head Head exam: atraumatic, normocephalic, normal inspection - Eye Eye exam: Present: normal appearance, PERRL, EOMI. Absent: scleral icterus - ENT ENT exam: Present: normal exam, normal oropharynx, mucous membranes moist, normal external ear exam - Neck Neck exam: Present: normal inspection, full ROM, trachea midline. Absent: tenderness - Chest Chest inspection: Present: normal inspection, symmetric chest wall rise. Absent : tenderness, rash - Respiratory Respiratory exam: Present: normal lung sounds bilaterally. Absent: respiratory distress, wheezes, prolonged expiratory phase, crackles - Cardiovascular Cardiovascular exam: Present: regular rate, normal rhythm, normal heart sounds - Abdominal Exam Abdominal exam: Present: soft. Absent: distention, tenderness, guarding, rebound, rigidity - Extremities Exam Extremities exam: Present: normal inspection, full ROM, normal capillary refill , other (Multiple areas of ecchymosis; Feet are purple and escobar, toenails are long, jagged, and unkempt). Absent: tenderness - Skin Skin exam: Present: warm, dry, intact, other (Thin and paper-like). Absent: rash - Neurological Exam Neurological exam: Present: alert, oriented X3, CN II-XII intact. Absent: normal gait (Non-ambulatory), motor sensory deficit - Psychiatric Psychiatric exam: Present: flat affect Course - Consultations Consultation #1: Hospitalist: Will admit to floor for sepsis. Pt is actually an Azeem pt. Will need to contact him for admission. Time: 08:52 Consultation #2: Dr. Gann: Accepts pt for admission for obs to medical. Requests 1/2 NS with 20mEq KCL at 125ml/hr until she can be further eval'ed treated. Time: 09:25 Vital Signs Temperature 98.0 F 06/19/17 07:39 Pulse Rate 70 06/19/17 07:39 Respiratory Rate 28 H 06/19/17 07:39 Blood Pressure 136/68 06/19/17 07:39 Pulse Oximetry 96 06/19/17 07:39 Temperature 98.0 F 06/19/17 07:39 Pulse Rate 69 06/19/17 09:00 Respiratory Rate 26 H 06/19/17 09:00 Blood Pressure 131/63 06/19/17 09:00 Pulse Oximetry 96 06/19/17 09:00 Dyspnea - MDM Narrative Medical decision making narrative: Pt with sepsis - urine as source. Discussed with hospitalist, who will admit to floor due to pts stability. - Differential Diagnosis Differential diagnosis: Likely: Acute exacerbation, Pneumonia, COPD exacerbation , Pulmonary edema systolic, Pulmonary edema dystolic, Pneumothorax - Medical Records Attestation: I reviewed the patient's medical records. - Lab Data Attestation: I reviewed the patient's lab results. Result diagrams: 06/19/17 07:48 06/19/17 07:48 Lab Results 06/19/17 06/19/17 06/19/17 Range/Units 07:48 07:48 08:46 WBC 5.1 (4.5-11.0) T/MM3 RBC 4.54 (4.00-5.20) M/MM3 Hgb 13.4 (12-16) GM/DL Hct 41.9 (36-46) % MCV 92.3 (80-100) UM3 MCH 29.5 (26-34) UUG MCHC 32.0 (31-37) GM/DL RDW Std Deviation 56.8 H (36.9-50.2) FL Plt Count 240 (130-400) T/MM3 MPV 9.6 (9.4-12.4) UM3 Immature Gran % (Auto) Not performed Neut % (Auto) Not performed Lymph % (Auto) Not performed [place] % (Auto) Not performed Eos % (Auto) Not performed Baso % (Auto) Not performed Neut # (Auto) Not performed Lymph # (Auto) Not performed [place] # (Auto) Not performed Eos # (Auto) Not performed Baso # (Auto) Not performed Abs Immat Gran (auto) Not performed Neutrophils % (Manual) 65.0 (33-66) % Band Neutrophils % 25.0 H D (0-6) % Lymphocytes % (Manual) 4.0 L (23-45) % Monocytes % (Manual) 2.0 (0-9.0) % Eosinophils % (Manual) 2.0 (0-4) % Metamyelocytes % 2.0 H (0-0) % Neutrophils # (Manual) 3.3 (1.8-7.7) T/MM3 Band Neutrophils # 1.3 T/MM3 Lymphocytes # (Manual) 0.2 L (1-4.8) T/MM3 Monocytes # (Manual) 0.1 (0-0.8) T/MM3 Eosinophils # (Manual) 0.1 (0-0.5) T/MM3 Metamyelocytes # 0.1 T/MM3 Nucleated RBCs 2 Poikilocytosis 1+ Anisocytosis 2+ RBC Morph Comment Abnormal Turbidity < 20 (0-20) Sodium 138 (134-144) MEQ/L Potassium 4.5 (3.6-5) MEQ/L Chloride 94 L (98-107) MEQ/L Carbon Dioxide 27 (22-30) MEQ/L Anion Gap 17 H (5-15) MEQ/L BUN 39.0 H (7-17) MG/DL Creatinine 1.4 H (0.7-1.2) MG/DL GFR Calculation 37 BUN/Creatinine Ratio 28 H (6-26) RATIO Glucose 185 H (65-110) MG/DL Calculated Osmolality 280 (261-280) MOSM/KG Calcium 9.5 (8.4-10.2) MG/DL Total Bilirubin 0.70 (0.20-1.30) MG/DL Icterus Index < 2 (0-7) AST 32 (14-36) U/L ALT 46 (9-52) U/L Alkaline Phosphatase 73 (38-126) U/L Troponin I 0.018 (0-0.12) ng/ml B-Natriuretic Peptide 1390 H (0-175) pg/mL Total Protein 7.0 (6.3-8.2) G/DL Albumin 3.9 (3.5-5.0) G/DL Globulin 3.1 (2.4-3.6) G/DL Albumin/Globulin Ratio 1.3 (1.1-2.2) RATIO Lipase 213 (23-300) U/L Plasma Lactate 4.0 H (0.6-2.2) MMOL/L Specimen Hemolysis 24 (0-25) Ur Collection Type Urine, olson Urine Color Yellow (YELLOW) Urine Clarity Cloudy Urine pH 5.5 (5.0-8.0) Ur Specific [place] 1.020 (1.015-1.025) Urine Protein 1+ A (NEGATIVE) Urine Glucose (UA) Negative (NEGATIVE) Urine Ketones Trace A (NEGATIVE) Urine Occult Blood 1+ A (NEGATIVE) Urine Nitrate Negative (NEGATIVE) Urine Bilirubin Negative (NEGATIVE) Urine Urobilinogen 0.2 (NORMAL) EU/DL Ur Leukocyte Esterase 3+ A (NEGATIVE) Urine RBC None seen (0-3) /HPF Urine WBC 50-200 H (0-5) /HPF Urine Bacteria 2+ H (NEGATIVE) Urine Yeast Pseudohyphae present A (NEGATIVE) Ur Culture Indicated? Cult reflexed &setup B-Hydroxybutyrate 0.50 (0-0.6) MMOL/L - Radiology Data Attestation: I reviewed the patient's radiology results. CXR: IMPRESSION: Mild interstitial prominence could represent pulmonary vascular congestion or atypical/viral pneumonia. - EKG Data EKG #1 EKG attestation: Yes: I reviewed and interpreted this EKG. EKG results narrative: Electronically paced rhythm at 69 BPM. Disposition Clinical Impression: Sepsis Qualifiers: Sepsis type: sepsis due to unspecified organism Qualified Code(s): A41.9 - Sepsis, unspecified organism UTI (urinary tract infection) Qualifiers: Urinary tract infection type: acute cystitis Hematuria presence: with hematuria Qualified Code(s): N30.01 - Acute cystitis with hematuria Disposition: 02 To [facility] Acute Care Print Language: Yi Prescriptions: No Action Cholecalciferol (Vitamin D3) [Vitamin D3] 1,000 unit PO DAILY Sucralfate [Carafate] 1 gm PO BID Tizanidine HCl 4 mg PO BID PRN PRN Reason: Prn Orders Senna + Docusate [Senna Plus Tablet] 1 tab PO HS PredniSONE [Deltasone] 20 mg PO WB Potassium Chloride [K-Dur] 20 meq PO BID Pantoprazole Tab [Protonix Tab] 40 mg PO ACB Magnesium Oxide [Magnesium] 400 mg PO DAILY Mag Hydrox/Aluminum Hyd/Simeth [Alum-Mag Hydroxide-Simeth Liq] 30 ml PO TID PRN PRN Reason: Epigastric Distress Levothyroxine Tab [Synthroid] 150 mcg PO ACB Gemfibrozil [Lopid] 600 mg PO BID Furosemide [Lasix] 40 mg PO BID Ferrous Sulfate 325 mg PO DAILY Acetaminophen [Pain Reliever] 500 mg PO Q4H PRN PRN Reason: Pain Insulin Aspart [Novolog Flexpen] 28 unit SQ BID Insulin Detemir [Levemir Flextouch] 33 unit SQ BID Nitroglycerin [Nitrostat] 0.4 mg SL Q5MIN3 PRN #25 tab PRN Reason: Chest Pain Multivit,Calc,Mins/Iron/Folic [Women's Daily Caplet] 1 tab PO DAILY DiphenhydrAMINE [Benadryl] 50 mg PO HS PRN cap PRN Reason: Itching Milk of Magnesia [Mom] 30 ml PO PRN PRN PRN Reason: Constipation Insulin Aspart [Novolog Flexpen] 26 unit SQ WB Ultram (Tramadol) 50 mg tablet 50 mg PO Q6HR PRN #45 tab PRN Reason: Pain diltiazem CD 240 mg capsule,extended release 24 hr 240 mg PO BID 30 Days #60 [place] 5 mg-acetaminophen 325 mg tablet 1 tab PO Q4H PRN #30 tab PRN Reason: Pain Referrals: Nikolas Gann MD [Family Provider] - Time of Disposition: 09:56 - Seen By: physician
--- NOTE | 2017-06-19 08:35 | XRay Report ---
Indication: CP, Dyspnea PROCEDURE: XR chest 1V: Encounter: Initial Comparison: April 16, 2017 Findings: The lungs are stable in appearance with mild interstitial prominence. There is no pleural effusion or pneumothorax. The heart size, pulmonary vascularity and mediastinal contours are unchanged. Prior left IJ central venous line has been removed. Left pacemaker. IMPRESSION: Mild interstitial prominence could represent pulmonary vascular congestion or atypical/viral pneumonia. .
[2017-06-19] MEDS: 1/2 NS with KCL 20mEq 1,000 ML IV SCH ×2 (10:03→22:30)
[2017-06-19 10:58] VITALS: BMI 65.4
[2017-06-19] MEDS: ACETAMINOPHEN 500 MG TABLET PO PRN (13:11)
[2017-06-19] MEDS ORDERED: MAG-AL + SIM ORAL LIQUID 30ml PO PRN (14:00)
[2017-06-19] MEDS ORDERED: ACETAMINOPHEN 500 MG TABLET PO PRN (14:00)
[2017-06-19] MEDS: CEFEPIME 1 GM in NS 100 ML IV SCH ×2 (15:56→21:36)
[2017-06-19] MEDS: FLUCONAZOLE 100 MG TABLET PO SCH (15:56)
[2017-06-19] MEDS: SUCRALFATE 1 GM TABLET PO SCH (18:02)
[2017-06-19] MEDS: INSULIN ASPART 100unit/ml INJECTION SQ SCH (18:02)
--- NOTE | 2017-06-19 20:02 | History and Physical ---
HISTORY OF PRESENT ILLNESS Patient is a 72-year-old female who presented to [facility] ER today with chief complaint of an approximately uey-sn-nep-day history of acute onset of fever, chills, nausea and occasional diarrhea. In addition, she was having some chest tightness, especially which she lay flat in bed. Denies any increased leg-swelling lately. She does have chronic leg edema. This is a patient with multiple emergency room visits and extensive comorbidities. PAST MEDICAL HISTORY 1. Type 2 diabetes mellitus needing insulin. 2. Peripheral neuropathy. 3. Sepsis. 4. GERD. 5. Sleep apnea. 6. Hypertension. 7. Cardiac arrhythmia. 8. Angina. 9. Macular degeneration. 10. Depression. 11. History of incontinence. 12. Hypothyroidism. 13. Pancreatitis. 14. Insomnia. 15. Osteoarthritis. 16. Rheumatoid arthritis. 17. Fibromyalgia. 18. Psoriasis. 19. Atrial fibrillation. PAST SURGICAL HISTORY 1. Ablation and pacemaker placement. 2. Hysterectomy without BSO. 3. Thyroidectomy. 4. Cholecystectomy. 5. Cataract surgery. 6. Pacemaker implantation in 2017. 7. Tubal ligation. 8. Cardioversion 01/01/2017. CURRENT MEDICAL PROBLEMS 1. Dyslipidemia. 2. Temporal arthritis. 3. Iron deficiency anemia. 4. Chronic kidney disease. 5. Anxiety. 6. Oxygen dependence. 7. Esophagitis. 8. Vitamin D deficiency. 9. Chronic pain syndrome. FAMILY HISTORY Father had a blood clot in the brain. Family history of hypertension, breast cancer, diabetes, myocardial infarction and stroke. REVIEW OF SYSTEMS As per HPI above. Patient denies hemoptysis, hematochezia, melena. Denies TIA or seizure symptoms. Denies symptoms suggestive of urinary tract infection. CURRENT MEDICATIONS 1. Vitamin D3 1000 IU daily. 2. Multivitamin one tablet daily. 3. Carafate 1 g p.o. b.i.d. 4. Tizanidine 4 mg p.o. b.i.d. 5. Diltiazem CD 240 mg one tablet daily. 6. Acetaminophen 500 mg q.4h. p.r.n. 7. Iron sulfate 325 mg one tablet daily. 8. Lasix 40 mg p.o. b.i.d. 9. Lopid 600 mg p.o. b.i.d. 10. NovoLog 26 units subcutaneously breakfast. 11. NovoLog 28 units subcutaneously b.i.d. 12. Levemir 33 units subcutaneously b.i.d. 13. Levothyroxine 150 mcg one tablet daily. 14. Magnesium oxide 30 mL p.o. t.i.d. p.r.n. 15. Magnesium oxide 400 mg one tablet p.o. daily. 16. Milk of Magnesia 30 mL p.o. p.r.n. 17. Protonix 40 mg p.o. a.c. breakfast. 18. Potassium chloride 20 mEq one tablet p.o. b.i.d. 19. Prednisone 20 mg p.o. with breakfast. 20. Senna with docusate (Senna Plus) one tablet p.o. q.h.s. 21. [place] 5 mg/325 mg one tablet q.4h. p.r.n. 22. Tramadol 50 mg q.6h. p.r.n. 23. Benadryl 50 mg p.o. q.h.s. 24. Nitrostat 0.4 mg sublingually q. 5 minutes x 3 p.r.n. ALLERGIES Long list of allergies including aspirin, levofloxacin, penicillin, sulfa, latex , statins, codeine, iodine-containing products, niacin, butorphanol, morphine. IMAGING Chest x-ray as read by Radiology shows mild interstitial prominence could represent pulmonary vasculature congestion or atypical/viral pneumonia. LABORATORY WBC 5.1, bandemia 25. Creatinine 1.4, glucose 185. BNP 1390. Plasma lactate 4.0. Urine shows 1+ protein, trace ketones, 1+ blood, 3+ leukocyte esterase, 50-200 WBC, 2+ bacteria. ASSESSMENT 1. Urosepsis. 2. Urinary tract infection NOS. 3. Acute congestive heart failure superimposed on chronic congestive heart failure, probably due to ischemic demand from the sepsis. 4. CKD stage III to IV. 5. Possible pneumonia on chest x-ray. 6. GERD. 7. Type 2 diabetes mellitus needing insulin. 8. Sleep apnea. PLAN 1. Admit patient to [facility] surgical floor inpatient. Patient will need a two-night stay here for IV antibiotics in light of her previous history of recurrent urinary tract infections leading to multiple complications. Continue IV antibiotics. 3. Gentle IV fluids, not to over-flush the heart as patient has evidence of pulmonary congestion at this time. 4. Follow electrolytes in the morning. 5. Resume most home medications at this time. 6. Follow chest x-ray in the morning. JUDITH
[2017-06-19] MEDS: SENNA + DOCUSATE TABLET PO SCH (21:36)
[2017-06-19] MEDS: GEMFIBROZIL 600 MG TABLET PO SCH (21:37)
[2017-06-19] MEDS: HYDROCODONE/APAP 5mg/325mg TABLET PO PRN (21:37)
[2017-06-19] MEDS: INSULIN DETEMIR 100unit/ml INJECTION SQ SCH (21:38)
[2017-06-20] MEDS: DiphenhydrAMINE 25 MG CAPSULE PO PRN ×2 (00:50→23:09)
[2017-06-20] MEDS: TRAMADOL 50 MG TABLET PO PRN ×2 (00:50→23:09)
[2017-06-20] MEDS: CEFEPIME 1 GM in NS 100 ML IV SCH ×4 (03:35→20:07)
[2017-06-20] MEDS: PANTOPRAZOLE 40 MG TABLET PO SCH (06:38)
[2017-06-20] MEDS: GEMFIBROZIL 600 MG TABLET PO SCH ×2 (06:38→17:24)
[2017-06-20] MEDS: LEVOTHYROXINE 150 MCG TABLET PO SCH (06:38)
[2017-06-20] MEDS: SUCRALFATE 1 GM TABLET PO SCH ×2 (06:39→17:24)
[2017-06-20] MEDS ORDERED: ONDANSETRON 4 MG TABLET PO PRN (06:52)
[2017-06-20] MEDS ORDERED: ONDANSETRON 4 MG/2 ML INJECTION IVP ONE ×2 (06:53→07:00)
[2017-06-20] MEDS: 1/2 NS 1,000 ML IV SCH ×2 (08:08→20:07)
[2017-06-20] MEDS ORDERED: CEFTRIAXONE 1 G in NS 100 ML IV ONE (09:00)
[2017-06-20] MEDS: MULTI-VITAMIN + IRON TABLET PO SCH (09:43)
[2017-06-20] MEDS: MAGNESIUM OXIDE 400 MG TABLET PO SCH (09:43)
[2017-06-20] MEDS: FLUCONAZOLE 100 MG TABLET PO SCH (09:43)
[2017-06-20] MEDS: FERROUS SULFATE 324 MG TABLET PO SCH (09:43)
[2017-06-20] MEDS: PredniSONE 20 MG TABLET PO SCH (09:44)
[2017-06-20] MEDS: FUROSEMIDE 40 MG TABLET PO SCH ×2 (09:44→15:09)
[2017-06-20] MEDS: INSULIN DETEMIR 100unit/ml INJECTION SQ SCH ×2 (09:44→20:07)
[2017-06-20] MEDS: INSULIN ASPART 100unit/ml INJECTION SQ SCH ×3 (09:45→18:11)
[2017-06-20] MEDS: ONDANSETRON 4 MG TABLET PO SCH ×3 (09:46→20:07)
--- NOTE | 2017-06-20 10:13 | Progress Note ---
DATE 06/20/2017 ALLISON Merritt was sleeping in room 131 on the surgical floor this morning when I saw her. She doesn't have any new complaints. She is not complaining of chills right now. PHYSICAL EXAM VITAL SIGNS: Blood pressure 124/61, pulse 68, temperature 99.9, respirations 20. Oxygen saturation 93% on room air. GENERAL: The patient looks comfortable. NECK: Supple. CHEST: Lungs have crackles at the bases. CARDIOVASCULAR: Regular rate and rhythm. ABDOMEN: Soft, nontender. EXTREMITIES: No significant changes. Chronic edema is noted. LABORATORY WBC actually went up from 5100 yesterday to 15,300 today which is concerning. Potassium 5.5. Creatinine 1.5. Glucose 185-204. Blood culture: One of the blood culture sites is growing E. coli. ASSESSMENT 1. Bacteremia due to E. coli. 2. Urosepsis. 3. Urinary tract infection due to E. coli. 4. Acute congestive heart failure superimposed on chronic congestive heart failure. 5. Stage III-IV chronic kidney disease. 6. Possible pneumonia on chest x-ray. 7. GERD. 8. Type 2 diabetes mellitus needing insulin. 9. Sleep apnea. 10. Chronic hypoxia. 11. Hyperkalemia. PLAN Discontinue potassium in IV fluids. Follow potassium at noon today. Add Rocephin 1 g IV b.i.d. due to bacteremia. Follow chest x-ray in the morning. MTDD
[2017-06-20] MEDS: HYDROCODONE/APAP 5mg/325mg TABLET PO PRN (15:19)
[2017-06-20] MEDS: SENNA + DOCUSATE TABLET PO SCH (20:06)
[2017-06-21] MEDS: CEFEPIME 1 GM in NS 100 ML IV SCH ×2 (03:42→09:08)
[2017-06-21] MEDS: ONDANSETRON 4 MG TABLET PO SCH ×4 (03:42→22:16)
[2017-06-21] MEDS: LEVOTHYROXINE 150 MCG TABLET PO SCH (05:33)
[2017-06-21] MEDS: SUCRALFATE 1 GM TABLET PO SCH ×2 (05:33→17:24)
[2017-06-21] MEDS: PANTOPRAZOLE 40 MG TABLET PO SCH (05:33)
[2017-06-21] MEDS: 1/2 NS 1,000 ML IV SCH ×2 (09:05→22:23)
[2017-06-21] MEDS: MAGNESIUM OXIDE 400 MG TABLET PO SCH (09:06)
[2017-06-21] MEDS: PredniSONE 20 MG TABLET PO SCH (09:06)
[2017-06-21] MEDS: FLUCONAZOLE 100 MG TABLET PO SCH (09:06)
[2017-06-21] MEDS: FERROUS SULFATE 324 MG TABLET PO SCH (09:06)
[2017-06-21] MEDS: INSULIN DETEMIR 100unit/ml INJECTION SQ SCH ×2 (09:07→22:18)
[2017-06-21] MEDS: FUROSEMIDE 40 MG TABLET PO SCH ×2 (09:07→14:00)
[2017-06-21] MEDS: GEMFIBROZIL 600 MG TABLET PO SCH ×2 (09:07→17:25)
[2017-06-21] MEDS: MULTI-VITAMIN + IRON TABLET PO SCH (09:08)
[2017-06-21] MEDS: INSULIN ASPART 100unit/ml INJECTION SQ SCH ×3 (09:08→18:40)
--- NOTE | 2017-06-21 10:11 | XRay Report ---
Indication: sob PROCEDURE: XR chest 1V: Encounter: Initial Comparison: June 19, 2017 Findings: Left pacemaker. Interstitial prominence is grossly stable. No new or worsening infiltrates. No obvious pleural effusion or pneumothorax. Heart size and mediastinal contours are stable. Impression: No change. .
[2017-06-21] MEDS: HYDROCODONE/APAP 5mg/325mg TABLET PO PRN ×2 (10:34→16:03)
[2017-06-21] MEDS: CEFAZOLIN 1 G in NS 100 ML IV SCH ×2 (14:46→22:18)
[2017-06-21] MEDS: LISINOPRIL 10 MG TABLET PO SCH (18:41)
[2017-06-21] MEDS ORDERED: FALL RISK - PHARMACY CONSULT XX ONE (21:26)
[2017-06-21] MEDS: SENNA + DOCUSATE TABLET PO SCH (22:15)
[2017-06-21] MEDS: TRAMADOL 50 MG TABLET PO PRN (23:05)
[2017-06-21] MEDS: DiphenhydrAMINE 25 MG CAPSULE PO PRN (23:05)
[2017-06-22] MEDS: CEFAZOLIN 1 G in NS 100 ML IV SCH ×3 (04:12→17:36)
[2017-06-22] MEDS: ONDANSETRON 4 MG TABLET PO SCH ×4 (04:13→21:50)
[2017-06-22] MEDS: SUCRALFATE 1 GM TABLET PO SCH ×2 (06:27→18:17)
[2017-06-22] MEDS: LEVOTHYROXINE 150 MCG TABLET PO SCH (06:27)
[2017-06-22] MEDS: PANTOPRAZOLE 40 MG TABLET PO SCH (06:27)
[2017-06-22] MEDS: GEMFIBROZIL 600 MG TABLET PO SCH ×2 (07:51→18:13)
--- NOTE | 2017-06-22 08:36 | XRay Report ---
Indication: chf XR chest 1V: Comparison: 06/20/2017 Technique: Upright portable chest Findings: Patient showed similar heart size the previous examination with a permanent pacemaker in place. Mild interstitial prominence was seen previously and is unchanged. No new focal prequel consolidations or effusions are noted. No acute new bony findings identified. Impression: Permanent pacemaker in place without significant additional acute new findings. Continued mild interstitial pulmonary prominence. No focal parenchymal consolidation or mass lesions noted. .
[2017-06-22] MEDS: MULTI-VITAMIN + IRON TABLET PO SCH (09:19)
[2017-06-22] MEDS: PredniSONE 20 MG TABLET PO SCH (09:20)
[2017-06-22] MEDS: MAGNESIUM OXIDE 400 MG TABLET PO SCH (09:20)
[2017-06-22] MEDS: LISINOPRIL 10 MG TABLET PO SCH (09:20)
[2017-06-22] MEDS: FUROSEMIDE 40 MG TABLET PO SCH ×2 (09:20→13:13)
--- NOTE | 2017-06-22 09:20 | Progress Note ---
DATE 06/21/2017 ALLISON Merritt was lying in bed in Room 131 on the surgical floor this afternoon when I saw her. Blood was being drawn from her at this very moment. She complained of a headache. Her blood pressure is slightly elevated. No fever or chills at this time. PHYSICAL EXAM VITAL SIGNS: Blood pressure 151/87 with a pulse of 70, respiration of 18, temperature 97.9, and O2 sat 97% on room air. GENERAL: She looks comfortable, in no distress. NECK: Supple. CHEST: Lungs had a few crackles at the bases. CARDIOVASCULAR: Regular rate and rhythm. No murmur. ABDOMEN: Soft, nontender. EXTREMITIES: Essentially unchanged. NEURO EXAM: Grossly intact. LABORATORY Lab is pending - CBC and CMP were ordered this morning. Both blood culture and urine culture are growing E. coli sensitive to cefepime. Patient has been on cefepime from day 1. There is a whole range of sensitivities that we can choose from. ASSESSMENT 1. E. coli-induced bacteremia. 2. E. coli-induced urosepsis (septicemia). 3. E. coli-induced urinary tract infection. 4. Acute congestive heart failure superimposed on chronic congestive heart failure. 5. Stage 3 to stage 4 chronic kidney disease. 6. Hyperkalemia. 7. Probable pneumonia based on chest x-ray report. 8. GERD. 9. Type 2 diabetes mellitus needing insulin. Blood sugars are acceptable. 10. Hypertension. Blood pressure slightly high. 11. Chronic headache. 12. Polymyalgia rheumatica. 13. Chronic hypoxia - patient oxygen dependent. 14. Morbid obesity. PLAN 1. Add lisinopril to patient's regimen in the sense that patient is diabetic and blood pressure is not well controlled. 2. Decrease the potassium daily intake. 3. Discontinue IV cefepime and start IV cefazolin 1 g IV q.6h. 4. Discontinue gemfibrozil. That causes severe nausea and abdominal pain. Therefore we're going to try her on Niacin in place of the gemfibrozil. 5. Follow patient in the morning. [facility]
[2017-06-22] MEDS: INSULIN DETEMIR 100unit/ml INJECTION SQ SCH ×2 (09:21→21:50)
[2017-06-22] MEDS: FERROUS SULFATE 324 MG TABLET PO SCH (09:21)
[2017-06-22] MEDS: INSULIN ASPART 100unit/ml INJECTION SQ SCH ×3 (09:21→18:19)
[2017-06-22] MEDS: HYDROCODONE/APAP 5mg/325mg TABLET PO PRN ×2 (13:16→18:23)
[2017-06-22] MEDS: 1/2 NS 1,000 ML IV SCH (14:25)
[2017-06-22] MEDS ORDERED: CEFAZOLIN 1 G in NS 100 ML IV SCH (18:00)
[2017-06-22] MEDS: SENNA + DOCUSATE TABLET PO SCH (21:50)
[2017-06-23] MEDS: DiphenhydrAMINE 25 MG CAPSULE PO PRN (00:03)
[2017-06-23] MEDS: TRAMADOL 50 MG TABLET PO PRN (00:03)
[2017-06-23] MEDS: 1/2 NS 1,000 ML IV SCH ×3 (00:34→16:40)
[2017-06-23] MEDS: ONDANSETRON 4 MG TABLET PO SCH ×4 (03:52→21:10)
[2017-06-23] MEDS: PANTOPRAZOLE 40 MG TABLET PO SCH (06:32)
[2017-06-23] MEDS: SUCRALFATE 1 GM TABLET PO SCH ×2 (06:32→18:05)
[2017-06-23] MEDS: LEVOTHYROXINE 150 MCG TABLET PO SCH (06:32)
[2017-06-23] MEDS: GEMFIBROZIL 600 MG TABLET PO SCH ×2 (08:12→17:51)
[2017-06-23] MEDS: LISINOPRIL 10 MG TABLET PO SCH (09:13)
[2017-06-23] MEDS: MULTI-VITAMIN + IRON TABLET PO SCH (09:13)
[2017-06-23] MEDS: MAGNESIUM OXIDE 400 MG TABLET PO SCH (09:14)
[2017-06-23] MEDS: FUROSEMIDE 40 MG TABLET PO SCH ×2 (09:15→14:19)
[2017-06-23] MEDS: FERROUS SULFATE 324 MG TABLET PO SCH (09:15)
[2017-06-23] MEDS: INSULIN ASPART 100unit/ml INJECTION SQ SCH ×3 (09:15→18:23)
[2017-06-23] MEDS: PredniSONE 20 MG TABLET PO SCH (09:15)
[2017-06-23] MEDS: INSULIN DETEMIR 100unit/ml INJECTION SQ SCH ×2 (09:16→21:25)
[2017-06-23] MEDS: CEFTRIAXONE 1 G in NS 100 ML IV SCH (09:16)
[2017-06-23] MEDS: HYDROCODONE/APAP 5mg/325mg TABLET PO PRN ×2 (11:00→21:11)
--- NOTE | 2017-06-23 13:54 | Pharmacy Consult ---
Pharmacy Consult-Other Meds - Consult Information CULTURE AND SENSITIVITY REVIEW: Organism: E. Coli Site: [place]/IV Antibiotic: Ceftriaxone 1,000 mg iv every 24 hours. Sensitivity: M.I.C. <= 1 Recommendation: Continue the antibiotic as ordered. Thanks, Manuel Infante, [facility]
--- NOTE | 2017-06-23 15:54 | Wound Care Progress Note ---
Wound Center Progress Note: Pt seen for follow up, pt lying in bed, no complaints of pain. Seen with nursing staff, pt rolled and buttocks assessed. Buttocks: blanchable erythema, skin intact, no drainage, barrier cream applied. Dressing change: with brief changes and PRN.
--- NOTE | 2017-06-23 17:50 | Progress Note ---
DATE 06/23/2017 ALLISON Merritt is lying in bed in room #131 on the surgical floor at [facility] when I saw her yesterday, 06/22/2017. Shaina complains of generalized weakness. She is not having chills at this time. No nausea or vomiting. PHYSICAL EXAM VITAL SIGNS: Blood pressure 139/66, pulse 74, temperature 97.4, respirations 20 , oxygen saturation 94% on 2 L/nasal cannula. GENERAL: The patient looks comfortable. She does not appear to be in no acute distress. NECK: Supple. CHEST: Lungs are essentially clearing at the bases. CARDIOVASCULAR: Regular rate and rhythm. No murmur. ABDOMEN: Soft, nontender. EXTREMITIES: No edema. NEUROLOGIC: Grossly intact. EXTREMITIES: Patient has chronic edema which is not new. LABORATORY WBC dropped to 10,700 from 15,300 a couple of days ago. Potassium 4.9, BUN 42, creatinine 1.0. Blood sugar is running between 128 to 262. Magnesium 1.8. Liver function tests were normal. ASSESSMENT 1. E. coli-induced bacteremia. 2. E. coli-induced urosepsis (septicemia). 3. E. coli/Klebsiella pneumoniae-induced urinary tract infection. 4. Acute congestive heart failure superimposed on chronic congestive heart failure. 5. Stage III to stage IV chronic kidney disease. 6. Hyperkalemia. 7. Pneumonia based on chest x-ray report on day of admission. 8. GERD. 9. Type 2 diabetes mellitus needing insulin. Her blood sugar waxes and wanes. 10. Hypertension. 11. Chronic headache. 12. Polymyalgia rheumatica. 13. Chronic hypoxia. 14. Morbid obesity. PLAN Continue current medications. Continue IV antibiotics. The plan is for long- term IV antibiotics with Rocephin. I have spoken with Dr. Koch - she recommended 14 days total of IV antibiotics because of the bacteremia. [facility]
--- NOTE | 2017-06-23 19:49 | Progress Note ---
DATE 06/22/2017 SUBJECTIVE The patient doesn't have any complaints today. PHYSICAL EXAM VITAL SIGNS: Blood pressure 139/66, pulse 74, temperature 97.4, respirations 20 , oxygen saturation 94% on 2 L/nasal cannula. GENERAL: The patient looks comfortable. NECK: Supple. CHEST: Lungs are clear. CARDIOVASCULAR: Regular rate and rhythm. ABDOMEN: Soft. EXTREMITIES: No significant changes. Chronic edema noted. LABORATORY WBC 10,700. Hemoglobin 12.1. Creatinine 232. Electrolytes were normal. Blood sugar is running 128-262. Liver function tests were normal. ASSESSMENT E. coli-induced bacteremia. E. coli-induced urosepsis. E. coli/Klebsiella pneumoniae-induced urinary tract infection. Congestive heart failure superimposed on chronic congestive heart failure. Hypokalemia - resolved. Pneumonia based on chest x-ray report. Acute stage III to stage IV chronic kidney disease. GERD. Type 2 diabetes mellitus needing insulin. Blood sugar is waxing and waning. Hypertension. Chronic headache. Polymyalgia rheumatica. Morbid obesity. PLAN Continue current regimen. Will try to find an IV site for patient so we can send her home on Rocephin once a day. MTDD
[2017-06-23] MEDS: SENNA + DOCUSATE TABLET PO SCH ×2 (21:10→21:15)
[2017-06-24] MEDS: DiphenhydrAMINE 25 MG CAPSULE PO PRN (00:23)
[2017-06-24] MEDS: TRAMADOL 50 MG TABLET PO PRN (00:23)
[2017-06-24] MEDS: ONDANSETRON 4 MG TABLET PO SCH ×4 (04:05→20:37)
[2017-06-24] MEDS: 1/2 NS 1,000 ML IV SCH ×2 (04:08→12:06)
[2017-06-24] MEDS: SUCRALFATE 1 GM TABLET PO SCH ×2 (05:53→17:35)
[2017-06-24] MEDS: LEVOTHYROXINE 150 MCG TABLET PO SCH (05:54)
[2017-06-24] MEDS: PANTOPRAZOLE 40 MG TABLET PO SCH (05:54)
[2017-06-24] MEDS: INSULIN DETEMIR 100unit/ml INJECTION SQ SCH ×2 (10:15→22:32)
[2017-06-24] MEDS: INSULIN ASPART 100unit/ml INJECTION SQ SCH ×3 (10:16→19:09)
[2017-06-24] MEDS: MULTI-VITAMIN + IRON TABLET PO SCH (10:17)
[2017-06-24] MEDS: LISINOPRIL 10 MG TABLET PO SCH (10:17)
[2017-06-24] MEDS: PredniSONE 20 MG TABLET PO SCH (10:19)
[2017-06-24] MEDS: FUROSEMIDE 40 MG TABLET PO SCH ×2 (10:19→14:01)
[2017-06-24] MEDS: MAGNESIUM OXIDE 400 MG TABLET PO SCH (10:19)
[2017-06-24] MEDS: GEMFIBROZIL 600 MG TABLET PO SCH ×2 (10:20→17:35)
[2017-06-24] MEDS: CEFTRIAXONE 1 G in NS 100 ML IV SCH (10:21)
[2017-06-24] MEDS: FERROUS SULFATE 324 MG TABLET PO SCH (10:21)
--- NOTE | 2017-06-24 13:37 | Progress Note ---
DATE 06/24/2017 SUBJECTIVE Patient does not have any complaints this afternoon. PHYSICAL EXAM VITAL SIGNS: Blood pressure 140/69, pulse 69, temperature 96.0, respirations 20 , oxygen saturation 97% on oxygen at 2 L/nasal cannula. GENERAL: The patient looks comfortable, actually cheerful. HEENT: Unremarkable. NECK: Supple. CHEST: Lungs have rales at the bases, unchanged. CARDIOVASCULAR: Regular rate and rhythm. ABDOMEN: Soft, nontender. EXTREMITIES: Edema is improving. LABORATORY (this morning) Potassium 5.7 earlier this morning. It was rechecked and was 5.0 now. Sodium 140 , creatinine 0.9, GFR 62. Specimen hemolysis was 125, high. This probably accounts for the potassium of 5.7 at that time. ASSESSMENT 1. E. coli-induced bacteremia. 2. E. coli/Klebsiella pneumoniae-induced urosepsis. 3. E. coli/Klebsiella pneumoniae-induced urinary tract infection. 4. Congestive heart failure superimposed on chronic congestive heart failure. 5. Hyperkalemia, probably due to hemolysis. Repeated potassium four hours later is back to normal. 6. Pneumonia based on chest x-ray report. 7. History of chronic kidney disease, probably stage III. However, patient's GFR at this time is actually 62 with a normal creatinine of 0.9. 8. Type II diabetes mellitus - needing insulin. Blood sugar is waxing and waning between 156 to 271. 9. Hypertension. Blood pressure is improved since we added lisinopril. 10. Chronic headache. 12. Polymyalgia rheumatica - quiescent at this time. 13. Morbid obesity, chronic. PLAN Case Management is working to complete insurance papers at this time. Will keep patient here until Thursday of next week for IV antibiotics due to bacteremia. The patient will go back to the [facility] for an additional four days for a total of 14 days as recommended by Dr. Wandy Koch, Infectious Disease specialist. In the meantime, will follow electrolytes in the morning. Continue current regimen. Review echocardiogram report from Cardiology to see if we need a new one repeated while she is here. JUDITH
[2017-06-24] MEDS ORDERED: POLYETHYL GLYCOL 3350 17gm PACKET PO PRN (16:57)
[2017-06-24] MEDS: LACTULOSE 20 GM/30 ML ORAL LIQUID PO SCH ×2 (17:35→20:39)
[2017-06-24] MEDS: SENNA + DOCUSATE TABLET PO SCH (20:39)
[2017-06-25] MEDS: TRAMADOL 50 MG TABLET PO PRN ×2 (00:24→23:55)
[2017-06-25] MEDS: DiphenhydrAMINE 25 MG CAPSULE PO PRN ×2 (00:25→23:55)
[2017-06-25] MEDS: ONDANSETRON 4 MG TABLET PO SCH ×4 (04:09→22:38)
[2017-06-25] MEDS: LEVOTHYROXINE 150 MCG TABLET PO SCH (06:16)
[2017-06-25] MEDS: PANTOPRAZOLE 40 MG TABLET PO SCH (06:16)
[2017-06-25] MEDS: SUCRALFATE 1 GM TABLET PO SCH ×2 (06:16→16:42)
[2017-06-25] MEDS: GEMFIBROZIL 600 MG TABLET PO SCH ×2 (07:23→18:29)
[2017-06-25] MEDS: LISINOPRIL 10 MG TABLET PO SCH (10:00)
[2017-06-25] MEDS: FERROUS SULFATE 324 MG TABLET PO SCH (10:01)
[2017-06-25] MEDS: PredniSONE 20 MG TABLET PO SCH (10:01)
[2017-06-25] MEDS: FUROSEMIDE 40 MG TABLET PO SCH ×2 (10:01→16:01)
[2017-06-25] MEDS: INSULIN DETEMIR 100unit/ml INJECTION SQ SCH ×2 (10:02→22:36)
[2017-06-25] MEDS: INSULIN ASPART 100unit/ml INJECTION SQ SCH ×3 (10:02→18:28)
[2017-06-25] MEDS: CEFTRIAXONE 1 G in NS 100 ML IV SCH (10:02)
[2017-06-25] MEDS: LACTULOSE 20 GM/30 ML ORAL LIQUID PO SCH ×2 (10:03→22:31)
[2017-06-25] MEDS: MAGNESIUM OXIDE 400 MG TABLET PO SCH (10:04)
[2017-06-25] MEDS: SALINE FLUSH 10ml SYRINGE IVF PRN (10:04)
[2017-06-25] MEDS: MULTI-VITAMIN + IRON TABLET PO SCH (10:04)
[2017-06-25] MEDS: NS FLUSH BAG 500ml IV PRN (10:08)
--- NOTE | 2017-06-25 16:16 | Progress Note ---
DATE 06/25/2017 ALLISON Humphreys was eating lunch this afternoon when I saw her. She seems very comfortable. She doesn't have any new complaints. She denies any fever or chills. No sweats. No diarrhea at this time. PHYSICAL EXAM GENERAL: The patient looks comfortable. She is cheerful. VITAL SIGNS: Blood pressure 144/71, pulse 71, respirations 20, temperature 96.3 , oxygen saturation 99% on oxygen at 2 L/nasal cannula. NECK: Supple. CHEST: Lungs have a few crackles at the bases. CARDIOVASCULAR: Regular rate and rhythm. ABDOMEN: Soft. EXTREMITIES: Edema is chronic, probably less at this time. LABORATORY Potassium is 4.2, creatinine 0.9. Blood sugar is actually better at 156-163. ASSESSMENT 1. E. coli-induced bacteremia. 2. E. coli/Klebsiella pneumoniae-induced urosepsis. 3. E. coli/Klebsiella pneumoniae-induced urinary tract infection. 4. Congestive heart failure superimposed on chronic congestive heart failure. 5. Hyperkalemia has been treated and has been stable for two days in a row. 6. Pneumonia based on chest x-ray report. 7. History of chronic kidney disease, probably stage III, baseline. GFR is 62 which is normal at this time. 8. Hypertension. Blood pressure has improved since we added lisinopril. 9. Chronic headache which is quiescent at this time. 10. Polymyalgia rheumatica, also quiescent at this time. 11. Morbid obesity, which is chronic. PLAN 1. Continue IV antibiotics as recommended by Dr. Wandy Koch, Infectious Disease specialist, for a total of 14 days of IV antibiotics. 2. Continue other home medications at this time. 3. No lab is needed for tomorrow. MTDD
[2017-06-25] MEDS: ACETAMINOPHEN 500 MG TABLET PO PRN (16:41)
[2017-06-25] MEDS: SENNA + DOCUSATE TABLET PO SCH ×2 (22:32→23:55)
[2017-06-26] MEDS: ONDANSETRON 4 MG TABLET PO SCH ×4 (04:40→20:29)
[2017-06-26] MEDS: PANTOPRAZOLE 40 MG TABLET PO SCH (05:59)
[2017-06-26] MEDS: LEVOTHYROXINE 150 MCG TABLET PO SCH (05:59)
[2017-06-26] MEDS: SUCRALFATE 1 GM TABLET PO SCH ×2 (05:59→17:40)
[2017-06-26] MEDS: FERROUS SULFATE 324 MG TABLET PO SCH (09:26)
[2017-06-26] MEDS: LISINOPRIL 10 MG TABLET PO SCH (09:26)
[2017-06-26] MEDS: GEMFIBROZIL 600 MG TABLET PO SCH ×2 (09:27→17:40)
[2017-06-26] MEDS: PredniSONE 20 MG TABLET PO SCH (09:27)
[2017-06-26] MEDS: FUROSEMIDE 40 MG TABLET PO SCH ×2 (09:27→15:50)
[2017-06-26] MEDS: LACTULOSE 20 GM/30 ML ORAL LIQUID PO SCH ×3 (09:29→20:30)
[2017-06-26] MEDS: MAGNESIUM OXIDE 400 MG TABLET PO SCH (09:42)
[2017-06-26] MEDS: NS FLUSH BAG 500ml IV PRN (09:43)
[2017-06-26] MEDS: MULTI-VITAMIN + IRON TABLET PO SCH (09:43)
[2017-06-26] MEDS: CEFTRIAXONE 1 G in NS 100 ML IV SCH (09:44)
[2017-06-26] MEDS: INSULIN DETEMIR 100unit/ml INJECTION SQ SCH ×2 (10:11→20:30)
[2017-06-26] MEDS: INSULIN ASPART 100unit/ml INJECTION SQ SCH ×3 (10:12→17:53)
[2017-06-26] MEDS: SENNA + DOCUSATE TABLET PO SCH (20:29)
[2017-06-27] MEDS: TRAMADOL 50 MG TABLET PO PRN ×2 (00:22→23:13)
[2017-06-27] MEDS: DiphenhydrAMINE 25 MG CAPSULE PO PRN ×2 (00:22→23:13)
[2017-06-27] MEDS: ONDANSETRON 4 MG TABLET PO SCH ×4 (03:05→20:25)
[2017-06-27] MEDS: PANTOPRAZOLE 40 MG TABLET PO SCH (05:36)
[2017-06-27] MEDS: LEVOTHYROXINE 150 MCG TABLET PO SCH (05:36)
[2017-06-27] MEDS: SUCRALFATE 1 GM TABLET PO SCH ×2 (05:36→18:05)
[2017-06-27] MEDS: GEMFIBROZIL 600 MG TABLET PO SCH ×2 (07:48→17:24)
[2017-06-27] MEDS: MULTI-VITAMIN + IRON TABLET PO SCH (09:40)
[2017-06-27] MEDS: FERROUS SULFATE 324 MG TABLET PO SCH (09:40)
[2017-06-27] MEDS: PredniSONE 20 MG TABLET PO SCH (09:40)
[2017-06-27] MEDS: LISINOPRIL 10 MG TABLET PO SCH (09:41)
[2017-06-27] MEDS: FUROSEMIDE 40 MG TABLET PO SCH ×2 (09:41→14:52)
[2017-06-27] MEDS: MAGNESIUM OXIDE 400 MG TABLET PO SCH (09:41)
[2017-06-27] MEDS: INSULIN ASPART 100unit/ml INJECTION SQ SCH ×3 (09:42→18:26)
[2017-06-27] MEDS: INSULIN DETEMIR 100unit/ml INJECTION SQ SCH ×2 (09:42→21:46)
[2017-06-27] MEDS: CEFTRIAXONE 1 G in NS 100 ML IV SCH ×2 (09:42→10:35)
[2017-06-27] MEDS: LACTULOSE 20 GM/30 ML ORAL LIQUID PO SCH ×3 (09:43→20:26)
--- NOTE | 2017-06-27 10:15 | Progress Note ---
DATE 06/26/2017 ALLISON Humphreys is eating her supper tonight in room 131 at [facility]. She does not voice any specific complaints but she feels tired, which is nothing new. PHYSICAL EXAM GENERAL: The patient looks comfortable and cheerful. VITAL SIGNS: Blood pressure 122/65, pulse 73, respirations 14, temperature 96.2 , oxygen saturation 94% on room air. NECK: Supple. CHEST: Lungs are clear. CARDIOVASCULAR: Regular rate and rhythm. ABDOMEN: Soft, nontender. EXTREMITIES: The patient has chronic edema which is smaller. NEUROLOGIC: Grossly intact. LABORATORY None today. ASSESSMENT 1. E. coli-induced bacteremia. 2. E. coli/Klebsiella pneumoniae-induced urosepsis. 3. E. coli/Klebsiella pneumoniae-induced urinary tract infection. 4. Congestive heart failure superimposed on chronic congestive heart failure. 5. Hyperkalemia - treated and resolved. 6. Pneumonia based on chest x-ray report. 7. History of chronic kidney disease. Baseline is GFR stage III but patient's GFR now is normal. 8. Hypertension. Blood pressure is better controlled with the addition of lisinopril. 9. Chronic headache, not a problem at this time. 10. Constipation - improved with lactulose and MiraLAX. 11. Polymyalgia rheumatica. This is not a major problem at this time. 12. Morbid obesity which is chronic. PLAN Continue IV Rocephin until Thursday when patient will be dismissed back to [facility] after she has received a total of 10 days of antibiotics here at [facility]. Will keep patient in bed today. Will check lab tomorrow to include CBC, CMP, magnesium. MTDD
[2017-06-27] MEDS: ACETAMINOPHEN 500 MG TABLET PO PRN (14:52)
[2017-06-27] MEDS: SENNA + DOCUSATE TABLET PO SCH (20:26)
[2017-06-28] MEDS: ONDANSETRON 4 MG TABLET PO SCH ×4 (02:39→20:37)
[2017-06-28] MEDS: ACETAMINOPHEN 500 MG TABLET PO PRN ×3 (03:18→19:52)
[2017-06-28] MEDS: SALINE FLUSH 10ml SYRINGE IVF PRN ×2 (05:48→09:17)
[2017-06-28] MEDS: SUCRALFATE 1 GM TABLET PO SCH ×2 (05:48→18:48)
[2017-06-28] MEDS: PANTOPRAZOLE 40 MG TABLET PO SCH (05:49)
[2017-06-28] MEDS: LEVOTHYROXINE 150 MCG TABLET PO SCH (05:49)
[2017-06-28] MEDS: GEMFIBROZIL 600 MG TABLET PO SCH ×2 (08:25→17:56)
[2017-06-28] MEDS: FERROUS SULFATE 324 MG TABLET PO SCH (09:14)
[2017-06-28] MEDS: PredniSONE 20 MG TABLET PO SCH (09:14)
[2017-06-28] MEDS: MULTI-VITAMIN + IRON TABLET PO SCH (09:14)
[2017-06-28] MEDS: FUROSEMIDE 40 MG TABLET PO SCH ×2 (09:14→13:31)
[2017-06-28] MEDS: MAGNESIUM OXIDE 400 MG TABLET PO SCH (09:14)
[2017-06-28] MEDS: LISINOPRIL 10 MG TABLET PO SCH (09:15)
[2017-06-28] MEDS: INSULIN DETEMIR 100unit/ml INJECTION SQ SCH ×2 (09:15→20:38)
[2017-06-28] MEDS: CEFTRIAXONE 1 G in NS 100 ML IV SCH (09:16)
[2017-06-28] MEDS: INSULIN ASPART 100unit/ml INJECTION SQ SCH ×3 (09:16→18:48)
[2017-06-28] MEDS: NS FLUSH BAG 500ml IV PRN (09:17)
[2017-06-28] MEDS: LACTULOSE 20 GM/30 ML ORAL LIQUID PO SCH ×2 (09:22→20:38)
--- NOTE | 2017-06-28 13:16 | Progress Note ---
DATE 06/28/2017 ALLISON Humphreys is lying in bed and was actually sleeping when I saw her. She doesn't have any complaints. She doesn't have any fever or chills at this time. She may be a little bit on the constipated side. She does have p.r.n. anticonstipation medications on board. PHYSICAL EXAM GENERAL: The patient looks comfortable, in no acute distress. She is cheerful. VITAL SIGNS: Blood pressure 155/67, pulse 69, respirations 16, oxygen saturation 97% on oxygen at 2 L/nasal cannula. Temperature 97.7. NECK: Supple. CHEST: Lungs are clear. CARDIOVASCULAR: Regular rate and rhythm. ABDOMEN: Soft. EXTREMITIES: Edema has decreased quite a bit. NEUROLOGIC: Grossly intact. Patient is awake, alert and oriented. No focal deficits. LABORATORY (today) Potassium 4.5. Creatinine 0.9. BUN 37. GFR 62. Glucose 130-307. Liver function tests were normal. ASSESSMENT 1. E. coli-induced bacteremia. 2. E. coli/Klebsiella pneumoniae-induced urosepsis. 3. E. coli/Klebsiella pneumoniae-induced urinary tract infection. 4. Congestive heart failure superimposed on chronic congestive heart failure. 5. Hyperkalemia - treated and resolved. 6. Pneumonia based on chest x-ray report. 7. History of chronic kidney disease. Baseline is now at 62 which is normalized. 8. Hypertension. Blood pressure is better controlled with the addition of lisinopril. 9. Chronic headache. The patient is not complaining about this at this time. 10. Constipation. The patient has lactulose and MiraLAX p.r.n. 11. Polymyalgia rheumatica. Her SED RATE value has come down lately. 12. Morbid obesity which is chronic. 13. Psoriasis which is chronic, under treatment. 14. Type II diabetes mellitus - needing insulin. The patient's blood sugar is actually much better in the hospital with the same dosage of insulin compared to the residential because her diet there is not an ADA diet and this is the reason why. PLAN Will continue IV Rocephin until Thursday. At that time the patient will have gotten 11 days total of IV antibiotics in this hospital. Hopefully tomorrow we can replace the IV site for an additional three days that she can get at the residential for a total of 14 days of IV Rocephin as recommended by Dr. Regine Koch through a telephone conversation. Continue patient's home medications. MTDD
[2017-06-28] MEDS: SENNA + DOCUSATE TABLET PO SCH (20:37)
[2017-06-28] MEDS: TRAMADOL 50 MG TABLET PO PRN (23:59)
[2017-06-28] MEDS: DiphenhydrAMINE 25 MG CAPSULE PO PRN (23:59)
[2017-06-29] MEDS: SALINE FLUSH 10ml SYRINGE IVF PRN
[2017-06-29] MEDS: ONDANSETRON 4 MG TABLET PO SCH ×2 (03:00→10:32)
[2017-06-29] MEDS: PANTOPRAZOLE 40 MG TABLET PO SCH (05:31)
[2017-06-29] MEDS: SUCRALFATE 1 GM TABLET PO SCH (05:31)
[2017-06-29] MEDS: LEVOTHYROXINE 150 MCG TABLET PO SCH (05:31)
[2017-06-29 09:41] VITALS: BP 136/66; RESP 18; TEMP 97.7; O2SAT 97
[2017-06-29] MEDS: MULTI-VITAMIN + IRON TABLET PO SCH (09:58)
[2017-06-29] MEDS: FUROSEMIDE 40 MG TABLET PO SCH ×2 (09:59→15:02)
[2017-06-29] MEDS: FERROUS SULFATE 324 MG TABLET PO SCH (09:59)
[2017-06-29] MEDS: PredniSONE 20 MG TABLET PO SCH (09:59)
[2017-06-29] MEDS: LISINOPRIL 10 MG TABLET PO SCH (09:59)
[2017-06-29] MEDS: CEFTRIAXONE 1 G in NS 100 ML IV SCH (10:00)
[2017-06-29] MEDS: MAGNESIUM OXIDE 400 MG TABLET PO SCH (10:00)
[2017-06-29] MEDS: INSULIN DETEMIR 100unit/ml INJECTION SQ SCH (10:01)
[2017-06-29] MEDS: INSULIN ASPART 100unit/ml INJECTION SQ SCH ×2 (10:01→15:02)
[2017-06-29] MEDS: GEMFIBROZIL 600 MG TABLET PO SCH (10:28)
[2017-06-29] MEDS: LACTULOSE 20 GM/30 ML ORAL LIQUID PO SCH (10:28)
[2017-06-29 11:56] VITALS: PULSE 71
--- NOTE | 2017-06-29 13:57 | Extended Care Facility Orders ---
Admission Orders Admit to:: Detention Allergies/Adverse Reactions: Allergies aspirin Allergy (Severe, Verified 06/19/17 07:38) Anaphylactic Shock levofloxacin [From Levaquin] Allergy (Severe, Verified 06/19/17 07:38) Anaphylactic Shock Penicillins Allergy (Severe, Verified 06/19/17 07:38) Anaphylactic Shock Sulfa (Sulfonamide Antibiotics) Allergy (Severe, Verified 06/19/17 07:38) Anaphylactic Shock Latex, Natural Rubber Allergy (Intermediate, Verified 06/19/17 07:38) Rash Ypknflm-[id number] Reductase Inhibitor Allergy (Intermediate, Verified 06/19/17 07: 38) muscle weakness codeine Allergy (Mild, Verified 06/19/17 07:38) Nausea and Vomiting Iodine and Iodide Containing Produc Allergy (Mild, Verified 06/19/17 07:38) Rash niacin Allergy (Verified 06/19/17 07:38) Flushing butorphanol [From Stadol] Adverse Reaction (Severe, Verified 06/19/17 07:38) aggressive behavior morphine Adverse Reaction (Verified 06/19/17 07:38) Nausea and Vomiting Admitting Diagnosis: sepsis,uti; urosepsis bacteremia Admitting Physician: Nikolas Gann MD Attending Physician: Nikolas Gann MD Anticiapted Length of Stay: 30 days or less Rehab Potential: fair Rehab Prognosis: fair Diet: 06/22/17 Dinner Cardiac Consistent Carbohydrate Diet [DIET] Calorie Level: 2000 Sodium Restriction: 2GRAM Fat Content: LOW May use Facility Protocol or Standing Orders: Yes May have flu vaccine: Yes Evaluations/Treatment: PT, OT Detention Certification: I certify that SNF services are required to be given on an Inpatient basis because of the patients need for residential care on a continuing basis for the condition(s) for which he/she received inpatient hospital services prior to his/her transfer to the SNF. SNF inpatient care is necessary for the following reasons - Additional Information In Event of Arrest: Start CPR,call 911,send patient to the ER Resident is Aware of Diagnosis: Yes Referrals: Nikolas Gann MD [Family Provider] - 2 Weeks
--- NOTE | 2017-06-30 19:54 | Discharge Summary ---
FINAL DIAGNOSES 1. E. coli-induced bacteremia. 2. E. coli/Klebsiella pneumoniae-induced urosepsis. 3. E. coli/Klebsiella pneumoniae-induced urinary tract infection. 4. Congestive heart failure superimposed on chronic congestive heart failure. 5. Hyperkalemia - treated and resolved. 6. Pneumonia based on chest x-ray report - treated with antibiotics as well. 7. History of chronic kidney disease. The patient's baseline GFR is now 62 which is normalized. 8. Hypertension. Blood pressure is much improved with the addition of lisinopril. 9. Chronic headache. She did not complain much about this during this entire hospitalization. 10. Constipation - resolved with lactulose and MiraLAX combination. 11. Polymyalgia rheumatica. Her sed rate has been improving. Her headache has improved. 12. Morbid obesity which is chronic. 13. Psoriasis which is chronic, under home regimen. 14. Type 2 diabetes mellitus - needing insulin. The patient's blood sugars actually much improved during this hospitalization with the same dosage of insulin compared to the detention though she was having quite a lot of high blood sugar readings at the detention. The reason for this is her diet at the detention is not really ADA-based. CONSULTATION None. REASON FOR ADMISSION The patient is a 72-year-old female who presented to [facility] ER on the day of admission with chief complaint of an approximately jgt-og-[id number]-day history of acute onset of fever, chills, nausea and occasional diarrhea. In addition she was having some chest tightness, especially which she lay flat in bed. Denied any increased leg swelling lately. She does have chronic leg edema. PHYSICAL EXAMINATION General: She looked comfortable overall. Exam was generally unremarkable other than chronic lower extremity edema. IMAGING/LABORATORY A chest x-ray was read by Radiology as mild interstitial prominence which could represent pulmonary vascular congestion or atypical/viral pneumonia. White blood count 5.1 with bandemia - with bands of 25. Creatinine 1.4. Glucose 185. BNP 1390. Plasma lactate 4.0. Urine showed 1+ protein, trace ketones, 1+ blood , 3+ leukocyte esterase, 50-200 WBC, and 2+ bacteria. HOSPITAL COURSE The patient was admitted to the surgical floor on an inpatient basis. She was started from the get-go with broad-spectrum IV antibiotics, meropenem. Her urine culture came back positive for both Klebsiella pneumoniae and E. coli. Both were sensitive to meropenem. Had telephone consultation to Dr. Regine Koch. Her recommendation was a total of 14 days of IV antibiotics. The patient's leukocytosis resolved. She was also treated with IV Lasix. She did develop hyperkalemia which was treated and corrected. She remained on the surgical floor for IV antibiotics for a total of 11 days. She was changed to IV Rocephin once daily due to poor venous access. She was medically stable enough to be dismissed back to [facility] today. DISMISSAL MEDICATIONS 1. Lisinopril 10 mg one tablet daily. 2. MiraLAX 17 g p.o. p.r.n. 3. Potassium chloride 10 mEq one tablet daily. 4. NovoLog 28 units subcutaneously with lunch and supper. 5. Ceftriaxone 1 g IV q.24h. for additional 3 days at the detention. 6. Vitamin D3 vitamin 1,000 IU one daily. 7. Sucralfate 1 g p.o. b.i.d. 8. Tizanidine 4 mg p.o. b.i.d. and p.r.n. 9. Senna Plus one tablet p.o. q.h.s. 10. Prednisone 20 mg with breakfast. 11. Protonix 40 mg one tablet a.c. breakfast. 12. Mag oxide 400 mg one tablet daily. 13. Levothyroxine 150 mg one tablet before breakfast. 14. Lopid 600 mg one tablet p.o. b.i.d. 15. Lasix 40 mg p.o. b.i.d. 16. Iron sulfate 325 mg one tablet daily. 17. Acetaminophen 500 mg q.4h. p.r.n. 18. NovoLog 28 units subcutaneously b.i.d. 19. Levemir 33 units subcutaneously b.i.d. 20. Ultram 50 mg one tablet q.6h. p.r.n. 21. Diltiazem CD 240 mg capsule p.o. b.i.d. 22. [place] 5/325 one tablet p.o. q.4h. p.r.n. FOLLOWUP Patient will have followup at Dr. Gann's office in 1-2 weeks or sooner. JUDITH
== END 2017-06-29 16:10 | DRG 871 ==
LOC: ED 07:29 → SRG 07:29
PROVIDERS: ADMIT Family Medicine; ATTEND Family Medicine

== ENCOUNTER 2017-11-14 01:19 | Inpatient (IN) ==
[2017-11-14] MEDS ORDERED: PROCHLORPERAZINE 10 MG/2 ML INJECTION IVP ONE (01:28)
[2017-11-14] MEDS ORDERED: HYDROMORPHONE 2 MG/ML INJECTION IVP ONE (01:28)
[2017-11-14] MEDS ORDERED: KETOROLAC 30 MG/ML INJECTION IVP ONE (01:28)
--- NOTE | 2017-11-14 01:33 | Emergency Department Report ---
Fall HPI - General Stated Complaint: fall Time Seen by Provider: 11/14/17 01:22 Source: patient Mode of arrival: ambulatory Limitations: no limitations - History of Present Illness HPI Narrative: Patient was released from the ER approximately 6 hours ago with a diagnosis of pyelonephritis. She was started on antibiotics, but continued to complain of weakness. At that visit patient had no admission criteria, and therefore outpatient treatment was attempted. Tonight while trying to go to bed, the patient "got so weak that I felt to the floor, wedging myself between the bed and the nightstand." EMS were called to extricate the patient from her entrapped state, and since that time the patient states that she is hurting "everywhere," but mostly in the right side of the chest wall. Patient is morbidly obese, has fibromyalgia, as well as significant osteo- arthritis with chronic pain. Patient had the same complaints of pain everywhere earlier today, and responded well to Toradol and morphine. Patient has had her home medications which includes Percocet. Patient also has sleep apnea and body habitus induced hypoxemia while laying supine. Patient does require nasal cannula oxygen supplement, which she has on currently. Patient also has continued complaints of severe weakness, chills, nausea, and pain everywhere. - Related Data Home Medications Medication Instructions Recorded Confirmed Cholecalciferol (Vitamin D3) 1,000 unit PO TID 11/12/17 11/13/17 [Vitamin D3] DiphenhydrAMINE [Benadryl] 25 mg PO HS 11/12/17 11/13/17 Furosemide [Lasix 40 mg Tab] 40 mg PO BID 11/12/17 11/13/17 Insulin Aspart [Novolog Flexpen] 28 unit SQ WB 11/12/17 11/13/17 Insulin Aspart [Novolog Flexpen] 30 unit SQ BIDLS 11/12/17 11/13/17 Insulin Detemir [Levemir Flextouch] 45 unit SQ BID 11/12/17 11/13/17 Levothyroxine Sodium 150 mcg PO ACB 11/12/17 11/13/17 Lisinopril [Prinivil] 10 mg PO DAILY 11/12/17 11/13/17 Magnesium Oxide [Magnesium] 400 mg PO DAILY 11/12/17 11/13/17 Multivit,Calc,Mins/Iron/Folic 1 tab PO DAILY 11/12/17 11/13/17 [Women's Daily Caplet] Niacin (Inositol Niacinate) 1,500 mg PO HS 11/12/17 11/13/17 [Niacin Flush-Free 500 mg Cap] Nitrofurantoin Macrocrystal 100 mg PO DAILY 11/12/17 11/13/17 [Nitrofurantoin] Pantoprazole Tab [Protonix Tab] 40 mg PO ACB 11/12/17 11/13/17 Potassium Chloride 10 meq PO WB 11/12/17 11/13/17 PredniSONE [Deltasone 20 mg] 20 mg PO WB 11/12/17 11/13/17 Sucralfate [Carafate] 1 gm PO QID 11/12/17 11/13/17 Tizanidine [Zanaflex] 4 mg PO DAILY PRN 11/12/17 11/13/17 Tizanidine [Zanaflex] 4 mg PO HS 11/12/17 11/13/17 Tramadol [Ultram] 50 mg PO HS 11/12/17 11/13/17 Vit C/E/Zn/Coppr/Lutein/Zeaxan 1 cap PO BID 11/12/17 11/13/17 [Preservision Areds 2 Softgel] dilTIAZem HCl [Cartia Xt] 240 mg PO BID 11/12/17 11/13/17 Docusate Sodium [Colace] 200 mg PO DAILY PRN 11/13/17 11/13/17 Previous Rx's Medication Instructions Recorded CephALEXin [Keflex 500 mg] 1,000 mg PO BID #40 cap 11/13/17 Ondansetron Tab [Zofran Po] 4 mg PO Q6HR #30 tab 11/13/17 Oxycodone/Acetaminophen 5/325 0.5 - 1 tab PO Q4H #10 tab 11/13/17 [Percocet 5/325] polyethylene glycol 3350 17 17 g PO .PRN PRN #119 g 11/13/17 gram/dose oral powder Allergies Allergy/AdvReac Type Severity Reaction Status Date / Time Latex, Natural Rubber Allergy Intermediate Rash Verified 11/13/17 16:36 aspirin Allergy Unknown Anaphylactic Verified 11/13/17 16:36 Shock,Not Entered butorphanol Allergy Unknown aggressive Verified 11/13/17 16:36 behavior codeine Allergy Unknown Nausea and Verified 11/13/17 16:36 Vomiting,Not Entered Iodinated Contrast- Oral and Allergy Unknown Verified 11/13/17 16:36 IV Dye Iodine and Iodide Containing Allergy Unknown Rash Verified 11/13/17 16:36 Produc [Iodine and Iodide Containing Products] latex Allergy Unknown Verified 11/13/17 16:36 levofloxacin Allergy Unknown Anaphylactic Verified 11/13/17 16:36 Shock,Not Entered Penicillins Allergy Unknown Anaphylactic Verified 11/13/17 16:36 Shock,Not Entered salicylates Allergy Unknown Verified 11/13/17 16:36 Ikvrjgm-Zgv-Lkj Reductase Allergy Unknown muscle Verified 11/13/17 16:36 Inhibitor weakness [Emkebgq-Nad-Bnr Reductase Inhibitors] Sulfa (Sulfonamide Allergy Unknown Anaphylactic Verified 11/13/17 16:36 Antibiotics) Shock,Not Entered niacin Allergy Flushing Verified 11/13/17 16:36 morphine AdvReac Nausea and Verified 11/13/17 16:36 Vomiting Review of Systems All systems: reviewed and negative except as stated PFSH Patient Stated Medical History Peripheral Neuropathy Yes Cataracts Yes Macular Degeneration Yes Other HEENT glasses for nearsighted Angina Yes Cardiac Arrhythmia Yes: a fib/flutter Hypertension Yes Bronchitis Yes Sleep Apnea Yes Diabetes Mellitus Type 2 Yes Constipation Yes Gastroesophageal Reflux Yes Disease Other GI Yes: IBS,hemarroids Hx Incontinence Yes Hx Renal Disease No Hx Urinary Tract Infection Yes Other Yes: stents after kidney stone removal ,removed Osteoarthritis Yes Other Musculoskeletal Yes: fibrymalgia Sepsis Yes Other Infectious Yes: psorasis Depression Yes Post Menopausal Yes Clinic Medical History Cataracts, bilateral (Acute Medical) Diabetes 1.5, managed as type 2 (Acute Medical) Dyslipidemia (Acute Medical) Fibromyalgia (Acute Medical) Hypertension (Acute Medical) Hypothyroidism (Acute Medical) aquired Idiopathic pancreatitis (Acute Medical) Insomnia (Acute Medical) Osteoarthritis (Acute Medical) Psoriasis arthropathica (Acute Medical) Medical History Updates: A-fib: now s/p ablation and PPM in place. Insulin dependent diabetes mellitus. hypertension. hyperlipidemia. Temporal arteritis : still requiring prednisone. Iron-deficiency anemia. Chronic kidney disease. Recent acute kidney injury. GERD. hypothyroid. anxiety. O2 dependent. Esophagitis. Stable angina. Chronic pain. Vit D deficiency Surgical History: Tubal ligation. Hysterectomy without BSO. Thyroidectomy. Cholecystectomy. Cataract surgery. Pacemaker implantation 2016. Cardioversion 01/01/2017 Family History: Family History Father Blood clots in brain Unknown High blood pressure Cancer of breast Mother Cancer of breast Diabetes Heart attack Stroke - Social History Smoking status: Former smoker Substance use type: does not use Alcohol intake: former Alcohol intake frequency: does not drink Housing: house Household members: none Current occupational status: retired Current residence: Apartment/Private Home Physical Exam - Limitations Limitations: no limitations - General General appearance: alert, in no apparent distress, obese - Normal Exams: Head:: Normocephalic without trauma Eyes:: Pupils are PERRLA w/ EOMI, No scleral icterus, irritation, or foreign bodies noted ENMT:: No facial trauma, nasal exudates, pharyngeal erythema, or exudates are noted Neck:: Full range of motion, without adenopathy, JVD, bruits or thyromegaly Lymphatic:: No lymphadenopathy, or lymphedema noted Musculoskeletal:: No tenderness, or deformity noted, good range of motion, all extremities Integumentary:: No rashes, hives, or bruising noted, hair and nails, without abnormality Neurological:: Patient is alert, and oriented, cranial nerves, motor/sensory/ cerebellar, exams w/o gross deficits, to observation Psychiatric:: Patient exhibits, appropriate attention, emotion and affect - Chest Chest inspection: Present: normal inspection, symmetric chest wall rise, tenderness (moderate sternal and right upper pectoral tenderness radiating throughout the right side of the chest wall. No palpable abnormalities, no crepitus.) - Respiratory Respiratory exam: Present: normal lung sounds bilaterally. Absent: respiratory distress, wheezes, stridor, accessory muscle use, prolonged expiratory phase - Abdominal Exam Abdominal exam: Present: soft, tenderness (mild diffuse tenderness), hyperactive bowel sounds. Absent: distention Fall - [facility] Narrative Medical decision making narrative: Patient is given 0.5 mg Dilaudid, Toradol 30 mg, and Compazine 10 mg for her stated complaints To the patient's morbid obesity, CT without contrast is used to try to image the thoracic skeleton CBC - elevated white blood cell count, no left shift at this time Lactate - elevated 3.3 Fluid initiation was delayed due to severe difficulty in finding IV access on the patient. Patient has already had IV Rocephin given at 7 PM, and IV fluids have now been started. Patient is discussed with Dr. Singh, we'll admit for pyelonephritis with sepsis. - Lab Data Result diagrams: 11/14/17 01:50 Disposition Clinical Impression: Pyelonephritis Sepsis Qualifiers: Sepsis type: sepsis due to unspecified organism Qualified Code(s): A41.9 - Sepsis, unspecified organism Disposition: 02 To [facility] [place] Condition: Improved Prescriptions: No Action Insulin Aspart [Novolog Flexpen] 30 unit SQ BIDLS Magnesium Oxide [Magnesium] 400 mg PO DAILY dilTIAZem HCl [Cartia Xt] 240 mg PO BID Furosemide [Lasix 40 mg Tab] 40 mg PO BID DiphenhydrAMINE [Benadryl] 25 mg PO HS Multivit,Calc,Mins/Iron/Folic [Women's Daily Caplet] 1 tab PO DAILY Lisinopril [Prinivil] 10 mg PO DAILY Levothyroxine Sodium 150 mcg PO ACB Pantoprazole Tab [Protonix Tab] 40 mg PO ACB PredniSONE [Deltasone 20 mg] 20 mg PO WB Potassium Chloride 10 meq PO WB Vit C/E/Zn/Coppr/Lutein/Zeaxan [Preservision Areds 2 Softgel] 1 cap PO BID Tizanidine [Zanaflex] 4 mg PO HS Tizanidine [Zanaflex] 4 mg PO DAILY PRN PRN Reason: Prn Orders Tramadol [Ultram] 50 mg PO HS Sucralfate [Carafate] 1 gm PO QID Nitrofurantoin Macrocrystal [Nitrofurantoin] 100 mg PO DAILY Insulin Detemir [Levemir Flextouch] 45 unit SQ BID Oxycodone/Acetaminophen 5/325 [Percocet 5/325] 0.5 - 1 tab PO Q4H #10 tab Ondansetron Tab [Zofran Po] 4 mg PO Q6HR #30 tab Insulin Aspart [Novolog Flexpen] 28 unit SQ WB Niacin (Inositol Niacinate) [Niacin Flush-Free 500 mg Cap] 1,500 mg PO HS Cholecalciferol (Vitamin D3) [Vitamin D3] 1,000 unit PO TID Docusate Sodium [Colace] 200 mg PO DAILY PRN PRN Reason: Constipation CephALEXin [Keflex 500 mg] 1,000 mg PO BID #40 cap polyethylene glycol 3350 17 gram/dose oral powder 17 g PO .PRN PRN #119 g PRN Reason: constipation Referrals: Aiyesavagewo,Nikolas O, MD [Primary Care Provider] - - Seen By: physician
--- OUTSIDE RECORDS SUMMARY | 2017-11-14 01:40 | External Medical Summary | Continuity of Care Document ---
:1945 [facility] Allergies Active Description Code Type Severity Reaction Onset Reported/ Identified Relationship Clinical to Patient Status Yes Opioids - trama Aller S ANAPHYLAC 05/13/2015 Morphine dol gy TIC SHOCK Analogues Yes Opioids - codei Aller S SOA,HIVES 01/27/2016 Morphine ne gy Analogues Yes Penicillins Penic Aller S HIVES, 01/27/2016 illin gy SOA s Yes Salicylates Salic Aller S HIVES, 01/27/2016 ylate gy SOA s Yes Sulfa Sulfa Aller S HIVES, 01/27/2016 (Sulfonamide (Sulf gy SOA Antibiotics) onami de Antib iotic s) Yes Iodinated Iodin Aller S HIVES, 05/13/2016 Contrast ated gy SOA Media - IV Contr Dye ast Media - IV Dye Yes Iodinated Iodin Aller S HIVES, 10/04/2016 Contrast ated gy SOA Media - Oral Contr and IV Dye ast Media - Oral and Yes Latex, latex Aller S SOA,HIVES 10/04/2016 Natural gy Rubber Yes Opioids - morph AdvRe Unknown vomiting 10/04/2016 Morphine ine ac Analogues Yes Opioids - butor Aller I HALLUCINA 10/04/2016 Morphine phano gy TIONS Analogues l tartr ate Yes Opioids - codei Aller S SOA, RASH 10/04/2016 Morphine ne gy Analogues Yes Penicillins Penic Aller S SOA, RASH 10/04/2016 illin gy s Yes Quinolones levof Aller S RASH 10/04/2016 loxac gy in Yes Salicylates aspir Aller S ANAPHYLAC 10/04/2016 in gy TIC SHOCK Yes Salicylates Salic Aller S SOA, RASH 10/04/2016 ylate gy s Yes Sulfa Sulfa Aller S RASH, SOA 10/04/2016 (Sulfonamide (Sulf gy Antibiotics) onami de Antib iotic s) Yes aspirin Aller Unknown N/A 03/11/2017 gy Yes codeine Aller Unknown N/A 03/11/2017 gy Yes levofloxacin Aller Unknown N/A 03/11/2017 gy Yes Penicillins Aller Unknown N/A 03/11/2017 gy Yes Statins-Hmg- Aller Unknown N/A 03/11/2017 Coa gy Reductase Inhibitor Yes Sulfa Aller Unknown N/A 03/11/2017 (Sulfonamide gy Antibiotics) Yes aspirin aspir Drug Severe anaphalac 03/18/2017 [...] Unknown skin 04/02/2017 Aller sensitivi gy ty Yes aspirin Aller S Anaphylac 06/19/2017 gy tic Shock Yes butorphanol AdvRe S aggressiv 06/19/2017 ac e behavior Yes codeine Aller M Nausea 06/19/2017 gy and Vomiting Yes Iodine and Aller M Rash 06/19/2017 Iodide gy Containing Produc Yes levofloxacin Aller S Anaphylac 06/19/2017 gy tic Shock Yes Penicillins Aller S Anaphylac 06/19/2017 gy tic Shock Yes Statins-Hmg- Aller I muscle 06/19/2017 Coa gy weakness Reductase Inhibitor Yes Sulfa Aller S Anaphylac 06/19/2017 (Sulfonamide gy tic Shock Antibiotics) Yes aspirin Drug Unknown N/A 10/05/2017 Aller gy Yes iodine Drug Unknown N/A 10/05/2017 Aller gy Yes latex Drug Moderate RASH 10/05/2017 Aller gy Yes penicillin Drug Unknown ANAPHYLAX 10/05/2017 Aller IS gy Yes Sulfa Drug Unknown N/A 10/05/2017 (Sulfonamide Aller Antibiotics) gy Yes Levaquin Drug Unknown N/A 10/30/2017 Aller gy Yes aspirin Aller Unknown Anaphylac 11/13/2017 gy tic Shock,Not Entered Yes butorphanol Aller Unknown aggressiv 11/13/2017 gy e behavior Yes codeine Aller Unknown Nausea 11/13/2017 gy and Vomiting, Not Entered Yes Iodinated Aller Unknown N/A 11/13/2017 Contrast- gy Oral and IV Dye Yes Iodine and Aller Unknown Rash 11/13/2017 Iodide gy Containing Produc Yes latex Aller Unknown N/A 11/13/2017 gy Yes Latex, Aller I Rash 11/13/2017 Natural gy Rubber Yes levofloxacin Aller Unknown Anaphylac 11/13/2017 gy tic Shock,Not Entered Yes morphine AdvRe Unknown Nausea 11/13/2017 ac and Vomiting Yes niacin Aller Unknown Flushing 11/13/2017 gy Yes Penicillins Aller Unknown Anaphylac 11/13/2017 gy tic Shock,Not Entered Yes salicylates Aller Unknown N/A 11/13/2017 gy Yes Statins-Hmg- Aller Unknown muscle 11/13/2017 Coa gy weakness Reductase Inhibitor Yes Sulfa Aller Unknown Anaphylac 11/13/2017 (Sulfonamide gy tic Antibiotics) Shock,Not Entered Medications Medication Packaging Start Date Stop Date Route Dosage Sig Protonix 01/25/2016 PO 40 mg ACB ACB MG 01/25/2016 40 MG Tablet 02/12/2016 Tablet Gemfibrozil 600 MG Oral Tablet Capsule 02/12/2016 Capsule Multivitamins Oral Capsule TAB 02/25/2016 0.5 Lisinopril/Hydrochlo DAILY rothiazide MG 02/25/2016 20 Rivaroxaban WS Sotalol MG 02/25/2016 40 HCl ACBID CAP 02/25/2016 1 Nitrofurantoin BIDWM Monohyd/M-Cryst Tramadol MG 02/25/2016 50 HCl TID TAB 02/25/2016 1 Hydrocodone/Acetamin Q4-6H ophen G 02/25/2016 17 Polyethylene Glycol DAILY 3350 MG 02/25/2016 400 Magnesium Oxide BID MCG 02/25/2016 150 Levothyroxine Sodium DAILY MG 02/25/2016 4 Tizanidine HCl HS TAB 02/25/2016 1 Melatonin HS MG 02/25/2016 4 Ondansetron Q4HR Insulin UNIT 02/25/2016 65 Aspart TIDWM MG 02/25/2016 600 Gemfibrozil BID Insulin UNIT 02/25/2016 46 Glargine,Hum.rec.anl HS og MG 02/25/2016 5 Prednisone DAILY MG 02/25/2016 40 Pantoprazole Sodium DAILY TAB 10/07/2016 1 Lisinopril/Hydrochlo DAILY rothiazide Tramadol MG 10/07/2016 50 HCl TID TAB 10/07/2016 1 Multivitamin DAILY MG 10/07/2016 25 Diphenhydramine HCl HS MG 10/07/2016 1500 Niacinamide HS UNIT 10/07/2016 3000 Cholecalciferol HS (Vitamin D3) MG 10/07/2016 400 Magnesium Oxide BID Docusate MG 10/07/2016 100 Sodium HS MCG 10/07/2016 150 Levothyroxine Sodium ACB MG 10/07/2016 4 Tizanidine HCl TID Insulin UNIT 10/07/2016 60 Aspart TIDWM MG 10/07/2016 500 Cephalexin BID GM 10/07/2016 1 Sucralfate QID Sotalol MG 10/07/2016 40 HCl BID MG 10/07/2016 600 Gemfibrozil HS Insulin UNIT 10/07/2016 90 Glargine,Hum.rec.anl HS og MG 10/07/2016 40 Pantoprazole Sodium DAILY 01/02/2017 SL 0.4 mg Nitrostat Q5MIN3 Q5MIN3 MG 01/02/2017 0.4 MG Lopid 02/13/2017 PO 600 mg ACBID Carafate 02/13/2017 PO 1 gm BID 02/13/2017 PO 1 each Women's Daily DAILY Caplet Vitamin 02/13/2017 PO 1,000 unit D3 DAILY 02/13/2017 PO 400 mg Magnesium DAILY 02/13/2017 PO 4 mg Tizanidine HCl BID DAILY UNIT 02/13/2017 1000 UNIT 03/05/2017 PO 240 mg Diltiazem 24Hr ER BID BID MG 03/05/2017 240 MG 04/03/2017 PO 150 mcg Levothyroxine Sodium ACB ACB MCG 04/03/2017 150 MCG Ferrous 04/09/2017 PO 325 mg Sulfate DAILY DAILY MG 04/09/2017 325 MG Miralax 04/16/2017 PO 17 gm DAILY DAILY GM 04/16/2017 17 GM K-Dur 04/23/2017 PO 20 meq WB Benadryl 04/23/2017 PO 25 mg HS 04/23/2017 TP 15 Mycostatin applic/15 BID g NovoLOG 04/23/2017 SQ 100 unit/ml WM Levemir 04/23/2017 SQ HS Lasix 04/23/2017 PO 40 mg DAILY 04/23/2017 PO 20 mg Deltasone WB HS MG 04/23/2017 50 MG Q6HR MG 04/24/2017 50 MG Q4H TAB 05/01/2017 1 TAB Ultram 05/25/2017 PO 50 mg Q6HR [place] 06/01/2017 PO 1 tab 5/325 Q4H K-Dur 06/12/2017 PO 20 meq BID Lasix 06/12/2017 PO 40 mg BID Lopid 06/19/2017 PO 600 mg BID K-Dur 06/19/2017 PO 20 meq BID Alum-Mag 06/19/2017 PO 360 ml Hydroxide-Simeth Liq TID Protonix 06/19/2017 PO 40 mg Tab ACB Pain 06/19/2017 PO 500 mg Reliever Q4H 06/19/2017 PO 400 mg Magnesium DAILY Senna 06/19/2017 PO 1 tab Plus Tablet HS Ferrous 06/19/2017 PO 325 mg Sulfate DAILY Levemir 06/19/2017 SQ 100 Flextouch unit/ml BID Novolog 06/19/2017 SQ 100 Flexpen unit/ml WB Mom 06/19/2017 PO 30 ml PRN 06/19/2017 PO 150 mcg Synthroid ACB Lasix 06/19/2017 PO 40 mg BID 06/19/2017 PO 20 mg Deltasone 20 mg WB Miralax 06/29/2017 PO 17 gm PRN K-DUR 10 06/29/2017 PO 10 meq mEq Tablet WB Prinivil 06/29/2017 PO 10 mg DAILY Rocephin 06/29/2017 IV 1 g/vial 1 GM VIAL Q24H NovoLOG 06/29/2017 SQ 100 unit/ml 1200,1730 [place] 06/30/2017 PO 1 tab 5/325 Q4H Ultram 07/03/2017 PO 50 mg Q6HR [place] 07/21/2017 PO 1 tab 5/325 Q4H Benadryl 07/23/2017 PO 25 mg HS 07/23/2017 PO 4 mg Tizanidine HCl .COMPLEX Ultram 07/24/2017 PO 50 mg HS 07/29/2017 PO 4 mg Ondansetron HCl Q6H K-DUR 10 08/07/2017 PO 10 meq mEq Tablet WB Prinivil 08/07/2017 PO 10 mg DAILY Lasix 40 08/07/2017 PO 40 mg mg Tab BID Keflex 08/12/2017 PO 500 mg Q12H 08/14/2017 PO 1 each Preservision Areds 2 BID Softgel Insulin 08/14/2017 .ROUTE 1 each Syringe .MEDSUPPLY Maxipime 08/17/2017 IV 2 gm Q12H Levemir 08/28/2017 SQ 100 unit/ml HS Protonix 09/04/2017 PO 40 mg Tab ACB 09/04/2017 PO 240 mg Diltiazem 24Hr ER BID NovoLOG 09/08/2017 SQ 100 unit/ml .COMPLEX Carafate 09/22/2017 PO 1 gm QID Ultram 10/02/2017 PO 50 mg HS Protonix 10/02/2017 PO 40 mg Tab ACB 10/02/2017 PO 240 mg Diltiazem 24Hr ER BID Ferrous 10/05/2017 PO 325 mg Sulfate DAILY 10/05/2017 PO 20 mg Deltasone 20 mg WB Cartia Capsule 10/05/2017 240 mg XT 240 mg 8 take 1 capsule,extended (one) by release Oral route daily Macrobid Capsule 10/05/2017 100 mg 100 mg capsule 8 take 1 (one) Capsule by Oral route daily Capsule 10/05/2017 250-200-40 PreserVision AREDS 2 -1 1 (one) by 250 mg-200 unit-40 mg-unit-mg Oral route mg-1 mg capsule -mg daily Vitamin Blister 10/05/2017 1,000 unit D3 1,000 unit tablet 8 1 (one) by Oral route daily Tablet 10/05/2017 150 mcg levothyroxine 150 8 1 (one) by mcg tablet Oral route daily Capsule 10/05/2017 4 mg tiZANidine 4 mg take 1 capsule (one) Capsule by Oral route daily Tablet 10/05/2017 10 mEq potassium chloride 8 1 (one) by ER 10 mEq Oral route tablet,extended daily release Blister 10/05/2017 25 mg diphenhydrAMINE 25 take 1 mg capsule (one) Capsule by Oral route daily ferrous Blister 10/05/2017 325 mg (65 sulfate 325 mg (65 8 mg iron) 1 (one) by mg iron) tablet Oral route daily Tablet 10/05/2017 400 mg magnesium oxide 400 8 take 1 mg tablet (one) Tablet by Oral route daily niacin Tablet 10/05/2017 500 mg 500 mg tablet 8 take 1 (one) Tablet by Oral route daily Bag 10/05/2017 10 mg lisinopril 10 mg 8 take 1 tablet (one) Tablet by Oral route daily Tablet 10/05/2017 1 gram sucralfate 1 gram 8 1 (one) by tablet Oral route daily traMADol Blister 10/05/2017 50 mg 50 mg tablet 8 take 1 (one) Tablet by Oral route daily Tablet 10/05/2017 40 mg furosemide 40 mg 8 take 1 tablet (one) Tablet by Oral route daily Tablet 10/05/2017 20 mg predniSONE 20 mg 8 take 1 tablet (one) Tablet by Oral route daily Blister 10/05/2017 40 mg pantoprazole 40 mg 8 take 1 tablet,delayed (one) by release Oral route daily 10/09/2017 PO 4 mg Ondansetron HCl Q6H 10/09/2017 PO 1 each Preservision Areds 2 BID Softgel Niacin 10/23/2017 PO 500 mg DAILY Macrobid 10/29/2017 PO 100 mg 100 mg Capsule DAILY Vitamin 10/30/2017 PO 1,000 unit D3 TID Niacin 10/30/2017 PO 500 mg .COMPLEX Novolog 10/30/2017 SQ 100 Flexpen unit/ml TID Levemir 10/30/2017 SQ 100 unit/ml BID Prinivil 11/03/2017 PO 10 mg DAILY Protonix 11/03/2017 PO 40 mg Tab ACB 11/03/2017 PO 150 mcg Synthroid ACB Lasix 40 11/03/2017 PO 40 mg mg Tab BID 11/03/2017 PO 20 mg Deltasone 20 mg WB K-DUR 10 11/04/2017 PO 10 meq mEq Tablet WB 11/04/2017 PO 240 mg Diltiazem 24Hr ER BID [place] 11/12/2017 PO 240 mg Xt BID Zanaflex 11/12/2017 PO 4 mg HS Ultram 11/12/2017 PO 50 mg HS Prinivil 11/12/2017 PO 10 mg DAILY Carafate 11/12/2017 PO 1 gm QID Protonix 11/12/2017 PO 40 mg Tab ACB 11/12/2017 PO 1 each Women's Daily DAILY Caplet 11/12/2017 PO 1 each Preservision Areds 2 BID Softgel 11/12/2017 PO 400 mg Magnesium DAILY Niacin 11/12/2017 PO 400 mg Flush-Free 500 mg HS Cap Vitamin 11/12/2017 PO 1,000 unit D3 TID Benadryl 11/12/2017 PO 25 mg HS 11/12/2017 PO 10 meq Potassium Chloride WB 11/12/2017 PO 150 mcg Levothyroxine Sodium ACB Levemir 11/12/2017 SQ 100 Flextouch unit/ml BID Novolog 11/12/2017 SQ 100 Flexpen unit/ml BIDLS 11/12/2017 PO 100 mg Nitrofurantoin DAILY Lasix 40 11/12/2017 PO 40 mg mg Tab BID 11/12/2017 PO 20 mg Deltasone 20 mg WB Keflex 11/13/2017 PO 500 mg 500 mg BID Zofran 11/13/2017 PO 4 mg Po Q6HR Colace 11/13/2017 PO 100 mg DAILY Laxative 11/13/2017 PO 510 gm Peg 3350 .PRN Percocet 11/13/2017 PO 1 tab 5/325 Q4H Problems Date Dx Attending Type Code Diagnosis Diagnosed By Coded 05/14/2015 MANAS LOUIE, Mahamed M15.0 Primary generalized 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 (osteo)arthritis 05/14/2015 MANAS LOUIE, Yanci M62.81 Muscle weakness 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 (generalized) 01/25/2016 Working R68.89 Other general symptoms Orestes Banks and signs 01/25/2016 Working N13.2 Hydronephrosis with Orestes Banks renal and ureteral calculous obstruction 01/25/2016 Working N39.0 Urinary tract Orestes Banks infection, site not specified 01/30/2016 Orestes Banks Working E11.9 Type 2 diabetes Orestes Banks mellitus 01/30/2016 Orestes Banks Working E66.01 Morbid obesity Orestes Banks 01/30/2016 Orestes Banks Working N20.0 Right kidney stone Orestes Banks 01/30/2016 Orestes Banks Working Z96.0 Retained ureteral stent Orestes Banks 02/05/2016 Working N20.0 Calculus of kidney Orestes Banks 02/05/2016 Working Z96.0 Presence of urogenital Orestes Banks implants 02/20/2016 Working N20.0 Calculus of kidney Orestes Banks 02/20/2016 Working R65.10 Systemic inflammatory Orestes Banks response syndrome (SIRS) of non-infectious origin without acute organ dysfunction 02/20/2016 Working Z96.0 Presence of urogenital Orestes Banks implants 10/05/2016 MANAS LOUIE, D12.6 BENIGN NEOPLASM OF 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 COLON, UNSPECIFIED 10/05/2016 MANAS LOUIE, D64.89 OTHER SPECIFIED ANEMIAS 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 10/05/2016 MANAS LOUIE, E03.9 HYPOTHYROIDISM, 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 UNSPECIFIED 10/05/2016 MANAS LOUIE, E11.65 TYPE 2 DIABETES 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 MELLITUS WITH HYPERGLYCEMIA 10/05/2016 MANAS LOUIE, E66.09 OTHER OBESITY DUE TO 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 EXCESS CALORIES 10/05/2016 MANAS LOUIE, E78.5 HYPERLIPIDEMIA, 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 UNSPECIFIED 10/05/2016 MANAS LOUIE, E87.0 HYPEROSMOLALITY AND 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 HYPERNATREMIA 10/05/2016 MANAS LOUIE, G43.909 MIGRAINE, UNSP, NOT 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 INTRACTABLE, WITHOUT STATUS MIGRAINOSUS 10/05/2016 MANAS LOUIE, I10 ESSENTIAL (PRIMARY) 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 HYPERTENSION 10/05/2016 MANAS LOUIE, 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 10/05/2016 MANAS LOUIE, K21.0 GASTRO-ESOPHAGEAL 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 REFLUX DISEASE WITH ESOPHAGITIS 10/05/2016 MANAS LOUIE, K21.9 GASTRO-ESOPHAGEAL 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 REFLUX DISEASE WITHOUT ESOPHAGITIS 10/05/2016 MANAS LOUIE, K22.70 STONER'S ESOPHAGUS 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 WITHOUT DYSPLASIA 10/05/2016 MANAS LOUIE, K31.7 POLYP OF STOMACH AND JAN O DUODENUM 10/05/2016 MANAS LOUIE, 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 10/05/2016 MANAS LOUIE, K62.1 RECTAL POLYP JAN O 10/05/2016 MANAS LOUIE, K62.5 HEMORRHAGE OF ANUS AND JAN O RECTUM 10/05/2016 MANAS LOUIE, K63.5 POLYP OF COLON JAN O 10/05/2016 MANAS LOUIE, L40.9 PSORIASIS, UNSPECIFIED JAN O 10/05/2016 MANAS LOUIE, M15.8 OTHER JAN O POLYOSTEOARTHRITIS 10/05/2016 MANAS LOUIE, M79.7 FIBROMYALGIA JAN O 10/05/2016 MANAS LOUIE, N39.0 URINARY TRACT 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 INFECTION, SITE NOT SPECIFIED 10/05/2016 MANAS LOUIE, R10.13 EPIGASTRIC PAIN JAN O 10/05/2016 MANAS LOUIE, Z68.44 BODY MASS INDEX (BMI) 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 60.0-69.9, ADULT 10/05/2016 MANAS LOUIE, Z79.02 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 CONSERVATIONIST (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) USE 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 OF ANTITHROMBOTICS/ANTIPLA TELETS 10/05/2016 MANAS LOUIE, Z79.4 SKILLED NURSING (CURRENT) USE 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 OF INSULIN 10/05/2016 MANAS LOUIE, Z79.52 SKILLED NURSING (CURRENT) USE 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 OF SYSTEMIC STEROIDS 10/05/2016 MANAS LOUIE, Z79.899 OTHER RANGE CONSERVATIONIST 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 (CURRENT) DRUG THERAPY 10/05/2016 MANAS LOUIE, Z87.442 PERSONAL HISTORY OF JAN Sachin URINARY CALCULI 11/22/2016 TERRELL LOUIE, S76.011A Strain of muscle, LACY E fascia and tendon of right hip, initial encounter 11/22/2016 TERRELL LOUIE, X58.XXXA Exposure to other LACY E specified factors, initial encounter 11/22/2016 TERRELL LOUIE, Y92.002 Bathroom of unspecified LACY E non-institutional (private) residence single-family (private) house as the place of occurrence of the external cause 11/22/2016 TERRELL LOUIE, Y93.89 Activity, other LACY E specified 11/22/2016 TERRELL LOUIE, Y99.8 Other external cause LACY E status 12/01/2016 MANAS LOUIE, R15.2 Fecal urgency MANAS LOUIE, JAN O JAN O 12/05/2016 MANAS LOUIE, 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 JAN O 12/19/2016 MANAS LOUIE, 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, 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 JAN O 02/13/2017 E03.9 Hypothyroidism, RYANNE LOUIE, unspecified STEVENS D 02/13/2017 E11.9 Type 2 diabetes RYANNE LOUIE, mellitus without STEVENS D complications 02/13/2017 E78.5 HyperlipidemiaRYANNE MD, unspecified STEVENS D 02/13/2017 I10 Essential (primary) RYANNE LOUIE, hypertension STEVENS D 02/13/2017 I48.0 Paroxysmal atrial RYANNE LOUIE, fibrillation STEVENS D 02/13/2017 J96.01 Acute respiratory RYANNE LOUIE, failure with hypoxia STEVENS D 02/13/2017 M79.7 Fibromyalgia RYANNE LOUIE, STEVENS D 02/13/2017 R07.9 Chest pain, unspecified RYANNE LOUIE, STEVENS D 02/13/2017 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 RYANNE LOUIE, of non-steroidal STEVENS D anti-inflammatories (NSAID) 02/13/2017 Z79.4 termite control service representative (current) use RYANNE LOUIE, of insulin STEVENS D 02/13/2017 Z79.52 MCC (current) use RYANNE LOUIE, of systemic steroids STEVENS D 02/13/2017 Z99.81 Dependence on RYANNE LOUIE, supplemental oxygen STEVENS D 02/17/2017 MANAS LOUIE, R70.0 Elevated erythrocyte MANAS LOUIE, 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 sedimentation rate 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 03/05/2017 MANAS LOUIE, E03.9 Hypothyroidism, MANAS LOUIE, 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 unspecified JAN O 03/05/2017 MANAS LOUIE, E13.9 Other specified MANAS LOUIE, 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 diabetes mellitus 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 without complications 03/05/2017 MANAS LOUIE, E78.5 Hyperlipidemia, MANAS LOUIE, 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 unspecified JAN O 03/05/2017 MANAS LOUIE, I10 Essential (primary) MANAS LOUIE, JAN O hypertension JAN O 03/05/2017 MANAS LOUIE, I48.91 Unspecified atrial MANAS LOUIE, 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 fibrillation 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 03/05/2017 MANAS LOUIE, I48.92 Unspecified atrial AIJAN MCGUIRE MD flutter 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 03/05/2017 MANAS LOUIE, K21.9 Gastro-esophageal JAN MALAGON MD reflux disease without 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 esophagitis 03/05/2017 MANAS LOUIE, K59.00 Constipation, MANAS LOUIE, JAN O unspecified 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 03/05/2017 MANAS LOUIE, L40.9 Psoriasis, unspecified JAN MALAGON MD 03/05/2017 MANAS LOUIE, R79.0 Abnormal level of blood JAN MALAGON MD mineral 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 04/03/2017 Chen LOUIE, F D64.9 ANEMIA, UNSPECIFIED Ghiyath 04/03/2017 Chen LOUIE, F E03.9 HYPOTHYROIDISM, Ghiyath UNSPECIFIED 04/03/2017 Chen OLUIE, F E11.22 TYPE 2 DIABETES Ghiyath MELLITUS W DIABETIC CHRONIC KIDNEY 04/03/2017 Chen LOUIE, F E66.9 OBESITY, UNSPECIFIED Ghiyath 04/03/2017 Chen LOUIE, F E87.5 HYPERKALEMIA Ghiyath 04/03/2017 Chen LOUIE, F G47.33 OBSTRUCTIVE SLEEP APNEA Ghiyath (ADULT) (PEDIATRIC) 04/03/2017 Chen LOUIE, F G89.29 OTHER CHRONIC PAIN Ghiyath 04/03/2017 Chen LOUIE, F I12.9 HYPERTENSIVE CHRONIC Ghiyath KIDNEY DISEASE W STG 1-4/UNSP 04/03/2017 Chen LOUIE, F I48.1 PERSISTENT ATRIAL Ghiyath FIBRILLATION 04/03/2017 Chen LOUIE, F I48.92 UNSPECIFIED ATRIAL Ghiyath FLUTTER 04/03/2017 Chen LOUIE, F K21.9 GASTRO-ESOPHAGEAL Ghiyath REFLUX DISEASE WITHOUT ESOPHAGIT 04/03/2017 Chen LOUIE, F K59.00 CONSTIPATION, Ghiyath UNSPECIFIED 04/03/2017 Chen LOUIE, F N17.9 ACUTE KIDNEY FAILURE, Ghiyath UNSPECIFIED 04/03/2017 Chen LOUIE, F N18.3 CHRONIC KIDNEY DISEASE, Ghiyath STAGE 3 (MODERATE) 04/03/2017 Chen LOUIE, F N30.00 ACUTE CYSTITIS WITHOUT Ghiyath HEMATURIA 04/03/2017 Chen LOUIE, F T82.110A BREAKDOWN (MECHANICAL) Ghiyath OF CARDIAC ELECTRODE, INIT 04/03/2017 Chen LOUIE, F Y83.1 IMPLNT OF ARTIF INT DEV Ghiyath CAUSE ABN REACT/COMPL, W/O 04/03/2017 Chen LOUIE, F Z68.44 BODY MASS INDEX (BMI) Ghiyath 60.0-69.9, ADULT 04/03/2017 Chen LOUIE, F Z79.4 SKILLED NURSING (CURRENT) USE Ghiyath OF INSULIN 04/03/2017 Chen LOUIE, F Z86.19 PERSONAL HISTORY OF Ghiyath OTHER INFECTIOUS AND PARASITIC 04/03/2017 Chen LOUIE, F Z88.0 ALLERGY STATUS TO Ghiyath PENICILLIN 04/03/2017 Chen LOUIE, F Z88.1 ALLERGY STATUS TO OTHER Ghiyath ANTIBIOTIC AGENTS STATUS 04/03/2017 Chen LOUIE, F Z88.2 ALLERGY STATUS TO Ghiyath SULFONAMIDES STATUS 04/03/2017 Chen LOUIE, F Z88.6 ALLERGY STATUS TO Ghiyath ANALGESIC AGENT STATUS 04/03/2017 Chen LOUIE, F Z88.8 ALLERGY STATUS TO OTH Ghiyath DRUG/MEDS/BIOL SUBST STATUS 04/03/2017 Chen LOUIE, F Z91.040 LATEX ALLERGY STATUS Ghiyath 04/03/2017 Chen LOUIE, F Z91.041 RADIOGRAPHIC DYE Ghiyath ALLERGY STATUS 05/05/2017 MANAS LOUIE, D62 Acute posthemorrhagic JAN MALAGON MD anemia 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 05/05/2017 MANAS LOUIE, D64.9 Anemia, unspecified JAN MALAGON MD 05/05/2017 MANAS LOUIE, E13.9 Other specified JNA MALAGON MD diabetes mellitus 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 without complications 05/05/2017 MANAS LOUIE, E78.5 Hyperlipidemia, JAN MALAGON MD unspecified 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 05/05/2017 MANAS LOUIE, I10 Essential (primary) MANAS LOUIE, JAN O hypertension JAN O 05/05/2017 MANAS LOUIE, K21.9 Gastro-esophageal MANAS LOUIE, 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 reflux disease without 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 esophagitis 05/05/2017 MANAS LOUIE, K59.00 Constipation, MANAS LOUIE, 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 unspecified 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 05/05/2017 MANAS LOUIE, L40.9 Psoriasis, unspecified MANAS LOUIE, JAN O JAN Sachin 05/05/2017 MANAS LOUIE, R58 Hemorrhage, not MANAS LOUIE, JAN O elsewhere classified JAN O 05/05/2017 MANAS LOUIE, R79.0 Abnormal level of blood MANAS LOUIE, 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 mineral JAN Sachin 06/19/2017 AMNAS LOUIE, A41.9 Sepsis, unspecified JAN MALAGON MD organism JAN O 06/19/2017 MANAS LOUIE, E11.22 Type 2 diabetes MANAS LOUIE, 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 mellitus with diabetic JAN O chronic kidney disease 06/19/2017 MANAS LOUIE, I50.9 Heart failure, MANAS LOUIE, 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 unspecified JAN Sachin 06/19/2017 MANAS LOUIE, N18.3 Chronic kidney disease, MANAS LOUIE, 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 stage 3 (moderate) 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 06/19/2017 MANAS LOUIE, N39.0 Urinary tract JAN MALAGON MD infection, site not JAN Sachin specified 07/09/2017 MANAS LOUIE, A41.9 Sepsis, unspecified MANAS LOUIE, JAN O organism JAN O 07/09/2017 MANAS LOUIE, E13.9 Other specified JAN MALAGON MD diabetes mellitus 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 without complications 07/09/2017 MANAS LOUIE, E78.5 Hyperlipidemia, MANAS LOUIE, 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 unspecified JAN Sachin 07/09/2017 MANAS LOUIE, I10 Essential (primary) JAN MALAGON MD hypertension 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 07/09/2017 MANAS LOUIE, I50.9 Heart failure, MANAS LOUIE, JAN O unspecified 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 07/09/2017 MANAS LOUIE, J15.5 Pneumonia due to MANAS LOUIE, 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 Escherichia coli JAN O 07/09/2017 MANAS LOUIE, J18.9 Pneumonia, unspecified MANAS LOUIE, JAN O organism JAN O 07/09/2017 MANAS LOUIE, K21.9 Gastro-esophageal MANAS LOUIE, 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 reflux disease without 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 esophagitis 07/09/2017 MANAS LOUIE, L40.9 Psoriasis, unspecified MANAS LOUIE, JAN O JAN O 07/09/2017 MANAS LOUIE, N39.0 Urinary tract MANAS LOUIE, 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 infection, site not JAN Sachin specified 10/09/2017 NABBOUT, N39.0 Urinary tract NABBOUT, AARTI infection, site not AARTI specified 10/09/2017 NABBOUT, Z87.442 Personal history of NABBOUT, AARTI urinary calculi [facility] Procedures Code [place] [address] PT EVALUATION JAN MALAGON MD 04/23/2015 O [id number] Cysto-Retrograde [facility] 01/28/2016 66331 Cysto/pigtail [facility] 01/28/2016 Stent 39497 Fluoroscopy [facility] 01/28/2016 [id number] [facility] 02/19/2016 Cystourethroscopy with lithotripsy 98959 Fluoroscopy [facility] 02/19/2016 75658 Cysto/stone [facility] 02/21/2016 Removal [id number] 10/04/2016 Esophagogastroduodenoscopy, flexible, transoral; with biopsy, single or multiple 18920 Colonoscopy, 10/04/2016 flexible; with removal of tumor(s), polyp(s), or other lesion(s) by snare technique 51191 Initial hospital 10/04/2016 care, per day, for the evaluation and management of a patient, which requires these 3 alarcon components: A comprehensive history; A comprehensive examination; and Medical decision making 82698 Subsequent 10/04/2016 hospital care, per day, for the evaluation and management of a patient, which requires at least 2 of these 3 alarcon components: A problem focused interval history; A problem focused examinatio XXX50 Coding Use Only [facility] [place] 01/13/2017 DESTRUCTION OF Al-Tabbal MD, 04/03/2017 [id number] CONDUCTION MECHANISM, Ghiyath PERCUTANEOUS INSERTION OF Chen LOUIE, 04/03/2017 [id number] PACEMAKER LEAD INTO RIGHT Ghiyath ATRIUM, OPE INSERTION OF Chen LOUIE, 04/03/2017 [id number] PACEMAKER LEAD INTO R Ghiyath VENTRICLE, OPEN INSERTION OF Chen LOUIE, 04/03/2017 [id number] PACEMAKER LEAD INTO L Ghiyath VENTRICLE, OPEN MAP CONDUCTION Chen LOUIE, 04/03/2017 [id number] MECHANISM, PERCUTANEOUS [place] APPROACH REVISION OF Chen LOUIE, 04/03/2017 [id number] CARDIAC LEAD IN HEART, [facility] PERCUTANEOUS AP INSERT CARD Chen LOUIE, 04/03/2017 [id number] RSYNC PACE PULS GEN IN CHEST [facility] SUBCU/FAS [id number] OFFICE OR OTHER AARTI RUTLEDGE 10/09/2017 OUTPATIENT VISIT FOR THE EVALUATION AND MANAGEMENT OF ANEW PATIENT, WHICH REQUIRES T <section xmlns="urn:hl7-org:v3" xmlns:xsi="http://www.w3.org/ 2001/XMLSchema-instance"> <templateId root=" [id number]" /> <templateId root=" [id number]" /> <code codeSystemName=" LOINC" codeSystem="[id number]" code="94030-0&quot ; displayName="Results" /> <title>Results</title> &lt ;text> <table> <thead> <tr> <th& gt;Test</th> <th>Result</th> <th>Range </th> </tr> </thead> <tbody> &lt ;tr> <th colspan="10">L100.0050 - /05/30 14:19< /th> </tr> <tr> <td>WBC - WHITE BLOOD COUNT</td> <td>6.7 T/MM3</td> <td>4.5 -11.0</td> </tr> <tr> <td>RED BLOODCOUNT</td> <td>4.29 M/MM3</td> <td& gt;4.00-5.20</td> </tr> <tr> <td>HGB - HEMOGLOBIN</td> <td>12.0 GM/DL</td> <td >12-16</td> </tr> <tr> <td>HCT - HEMATOCRIT</td> <td>37.7 %</td> < td>36-46</td> </tr> <tr> <td> MEAN CORPUSCULAR VOLUME</td> <td>87.9 UM3</td> <td>80-100</td> </tr> <tr> & lt;td>MEAN CORPUSCULAR HGB</td> <td>28.0 UUG</td> <td>26-34</td> </tr> <tr> <td>MEAN CORPUSCULAR HGB CONC(MCHC</td> <td>31.8 GM/DL</td> <td>31-37</td> </tr> & lt;tr> <td>RDW STANDARD DEVIATION</td> <td& gt;49.7 FL</td> <td>36.9-50.2</td> </tr&gt ; <tr> <td>PLT - PLATELET COUNT</td> <td>220 T/MM3</td> <td>130-400</td> < /tr> <tr> <td>MEAN PLATELET VOLUME</td> <td>10.2 UM3</td> <td>9.4-12.4</td> </tr> <tr> <td>NEUTROPHILS % (AUTO )</td> <td>72.4 %</td> <td>33- 66</td> </tr> <tr> <td> LYMPHOCYTES % (AUTO)</td> <td>17.1 %</td > <td>23-45</td> </tr> <tr> <td>MONOCYTES % (AUTO)</td> <td>7.1 & amp;#37;</td> <td>0-9.0</td> </tr> <tr> <td>EOSINOPHILS % (AUTO)</td> <td>2.6 %</td> <td>0-4</td> & lt;/tr> <tr> <td>BASOPHILS % (AUTO)</ td> <td>0.3 %</td> <td>0-2</td > </tr> <tr> <td>IMMATURE GRANULOCYTE % (AUTO)</td> <td>0.5 %</td> <td>0.0-0.5</td> </tr> <tr> &lt ;td>NEUTROPHILS # (AUTO)</td> <td>4.8 T/MM3</td> & lt;td>1.8-7.7</td> </tr> <tr> <td >LYMPHOCYTES # (AUTO)</td> <td>1.1 T/MM3</td> <td>1-4.8</td> </tr> <tr> & lt;td>MONOCYTES # (AUTO)</td> <td>0.5T/MM3</td> <td>0-0.8</td> </tr> <tr> <td>EOSINOPHILS # (AUTO)</td> <td>0.2 T/MM3</td& gt; <td>0-0.5</td> </tr> <tr> <td>BASOPHILS # (AUTO)</td> <td>0.0 T/MM3</ td> <td>0-0.2</td> </tr> <tr> <td>IMMATURE GRANULOCYTE # (AUTO)</td> <td>0.03 T/ MM3</td> <td>0.00-0.03</td> </tr> <tr> <th colspan="10">L200.0020 - 01/25/16 14: 19</th> </tr> <tr> <td>ICTERUS&lt ;/td> <td>< 2 </td> <td>0-7</td > </tr> <tr> <td>HEMOLYSIS</td&gt ; <td>< 15 </td> <td>0-25</td> & lt;/tr> <tr> <th colspan="10"> L200.1950 - 01/25/16 14:19</th> </tr> <tr> <td>LIPASE</td> <td>120 U/L</td> < td>23-300</td> </tr> <tr> <th colspan="10">L900.0530 - 01/25/16 18:24</th> </tr& gt; <tr> <td>GLUCOMETER</td> <td& gt;188 mg/dL</td> <td>65-110</td> </tr> <tr> <th colspan="10">L600.0180 - 20:36</th> </tr> <tr> <td> SPECIMEN TYPE, URINE</td> <td>VOIDED-NOT CC-MIDSTR </td& gt; <td /> </tr> <tr> <td> COLOR,URINE</td> <td>YELLOW </td> <td>YELLOW </td> </tr> <tr> <td>TURBIDITY, URINE</td> <td>SL CLOUDY </td> <td> CLEAR</td> </tr> <tr> <td> SPECIFIC GRAVITY,URINE</td> <td>1.020 </td> <td>1.015-1.025</td> </tr> <tr> <td& gt;PH, URINE - DIPSTICK</td> <td>6.0 </td> & lt;td>5.0-8.0</td> </tr> <tr> <td >LEUKOCYTE ESTERASE ,URINE</td> <td>TRACE </td> <td>NEGATIVE</td> </tr> <tr> <td>NITRITE,URINE</td> <td>POSITIVE </td> <td>NEGATIVE</td> </tr> <tr> <td>PROTEIN,URINE - DIPSTICK</td> <td> NEGATIVE </td> <td>NEGATIVE</td> </tr> <tr> <td>GLUCOSE, URINE - DIPSTICK</td> <td>NEGATIVE </td> <td>NEGATIVE</td> </tr> <tr> <td>KETONES,URINE - DIPSTICK</ td> <td>NEGATIVE </td> <td>NEGATIVE</ td> </tr> <tr> <td>UROBILINOGEN, URINE</td> <td>0.2 EU/DL</td> <td> NORMAL</td> </tr> <tr> <td> BILIRUBIN,URINE - DIPSTICK</td> <td>NEGATIVE </td> <td>NEGATIVE</td> </tr> <tr> <td>BLOOD, URINE</td> <td>TRACE-INTACT </td& gt; <td>NEGATIVE</td> </tr> <tr> <th colspan="10">L600.0175 - 01/25/16 20:36</th&gt ; </tr> <tr> <td>SPECIMEN TYPE, URINE< /td> <td>VOIDED-NOT CC-MIDSTR </td> <td /&gt ; </tr> <tr> <td>COLOR,URINE</td&gt ; <td>YELLOW </td> <td>YELLOW</td> </tr> <tr> <td>TURBIDITY, URINE</td> <td>SL CLOUDY </td> <td>CLEAR</td> & lt;/tr> <tr> <td>SPECIFIC GRAVITY,URINE</td&gt ; <td>1.020 </td> <td>1.015-1.025</td&gt ; </tr> <tr> <td>PH, URINE - DIPSTICK& lt;/td> <td>6.0 </td> <td>5.0-8.0</td& gt; </tr> <tr> <td>LEUKOCYTE ESTERASE , URINE</td> <td>TRACE </td> <td> NEGATIVE</td> </tr> <tr> <td> NITRITE,URINE</td> <td>POSITIVE </td> <td >NEGATIVE</td> </tr> <tr> <td> PROTEIN,URINE - DIPSTICK</td> <td>NEGATIVE </td> <td>NEGATIVE</td> </tr> <tr> <td >GLUCOSE, URINE - DIPSTICK</td> <td>NEGATIVE </td&gt ; <td>NEGATIVE</td> </tr> <tr> <td>KETONES,URINE - DIPSTICK</td> <td> NEGATIVE </td> <td>NEGATIVE</td> </tr> <tr> <td>UROBILINOGEN,URINE</td> <td&gt ;0.2 EU/DL</td> <td>NORMAL</td> </tr> <tr> <td>BILIRUBIN,URINE - DIPSTICK</td> < td>NEGATIVE </td> <td>NEGATIVE</td> </tr > <tr> <td>BLOOD, URINE</td> < td>TRACE-INTACT </td> <td>NEGATIVE</td> &lt ;/tr> <tr> <th colspan="10">M153.0000 - 01/25/16 20:36</th> </tr> <tr> <td >URINE CULTURE.</td> <td> CFU/ml</td> & lt;td /> </tr> <tr> <thcolspan="10 ">M153.0000 - 01/25/16 20:36</th> </tr> <tr > <td>URINE CULTURE.</td> <td> CFU/ml< /td> <td /> </tr> <tr> < th colspan="10">L6003.0110 - 01/25/16 20:36</th> </ tr> <tr> <td>SPECIMEN TYPE, URINE</td> <td>VOIDED-NOT CC-MIDSTR </td> <td /> & lt;/tr> <tr> <td>COLOR,URINE</td> <td>YELLOW </td> <td>YELLOW</td> </tr&gt ; <tr> <td>TURBIDITY, URINE</td> < td>SL CLOUDY </td> <td>CLEAR</td> </tr> <tr> <td>SPECIFIC GRAVITY,URINE</td> &lt ;td>1.020 </td> <td>1.015-1.025</td> </ tr> <tr> <td>PH, URINE - DIPSTICK</td> <td>6.0 </td> <td>5.0-8.0</td> </ tr> <tr> <td>LEUKOCYTE ESTERASE ,URINE</td&gt ; <td>TRACE </td> <td>NEGATIVE</td> </tr> <tr> <td>NITRITE,URINE</td> <td>POSITIVE </td> <td>NEGATIVE</td> </tr> <tr> <td>PROTEIN,URINE - DIPSTICK</td> <td>NEGATIVE </td> <td> NEGATIVE</td> </tr> <tr> <td> GLUCOSE, URINE - DIPSTICK</td> <td>NEGATIVE </td> <td>NEGATIVE</td> </tr> <tr> <td>KETONES,URINE - DIPSTICK</td> <td>NEGATIVE & lt;/td> <td>NEGATIVE</td> </tr> < tr> <td>UROBILINOGEN,URINE</td> <td>0.2 EU/DL</ td> <td>NORMAL</td> </tr> <tr&gt ; <td>BILIRUBIN,URINE - DIPSTICK</td> <td> NEGATIVE </td> <td>NEGATIVE</td> </tr> <tr> <td>BLOOD, URINE</td> <td> TRACE-INTACT </td> <td>NEGATIVE</td> </tr& gt; <tr> <th colspan="10">L600.0180 - 05/30 20:36</th> </tr> <tr> <td> SPECIMEN TYPE, URINE</td> <td>VOIDED-NOT CC-MIDSTR </td& gt; <td /> </tr> <tr> <td& gt;COLOR,URINE</td> <td>YELLOW </td> <td& gt;YELLOW</td> </tr> <tr> <td> TURBIDITY, URINE</td> <td>SL CLOUDY </td> & lt;td>CLEAR</td> </tr> <tr> <td& gt;SPECIFIC GRAVITY,URINE</td> <td>1.020 </td> <td>1.015-1.025</td> </tr> <tr> <td>PH, URINE - DIPSTICK</td> <td>6.0 </td> <td>5.0-8.0</td> </tr> <tr> &lt ;td>LEUKOCYTE ESTERASE ,URINE</td> <td>TRACE </td&gt ; <td>NEGATIVE</td> </tr> <tr> & lt;td>NITRITE,URINE</td> <td>POSITIVE </td> <td>NEGATIVE</td> </tr> <tr> <td>PROTEIN,URINE - DIPSTICK</td> <td>NEGATIVE </ td> <td>NEGATIVE</td> </tr> <tr& gt; <td>GLUCOSE, URINE - DIPSTICK</td> <td> NEGATIVE </td><td>NEGATIVE</td> </tr> < tr> <td>KETONES,URINE - DIPSTICK</td> <td&gt ;NEGATIVE </td> <td>NEGATIVE</td> </tr> <tr> <td>UROBILINOGEN,URINE</td> < td>0.2 EU/DL</td> <td>NORMAL</td> </tr& gt; <tr> <td>BILIRUBIN,URINE - DIPSTICK</td> <td>NEGATIVE </td> <td>NEGATIVE</td> </ tr> <tr> <td>BLOOD, URINE</td> &lt ;td>TRACE-INTACT </td> <td>NEGATIVE</td></tr&gt ; <tr> <td>WBC,URINE</td> <td> 10-20 /HPF</td> <td>0-5</td> </tr> <tr> <td>WBC CLUMPS,URINE</td> <td> FEW </td> <td /> </tr> <tr> <td>RBC,URINE</td> <td>0-1 /HPF</td> <td>0-3</td> </tr> <tr> <td& gt;SQUAMOUS EPITHELIAL CELL,UR</td> <td>NONE SEEN </td& gt; <td /> </tr> <tr> <td& gt;BACTERIA,URINE</td> <td>2+ </td> <td& gt;NEGATIVE</td> </tr> <tr> <th colspan="10">L900.0530 - 01/26/16 00:31</th> </tr& gt; <tr> <td>GLUCOMETER</td> <td>309 mg/dL</td> <td>65-110</td> </tr> <tr> <th colspan="10">L900.0530 - 01/26/16 03:47& lt;/th> </tr> <tr> <td>GLUCOMETER&lt ;/td> <td>271 mg/dL</td> <td>65-110</ td> </tr> <tr> <th colspan="10" >L100.005 - 01/26/16 04:09</th> </tr> <tr> <td>WBC - WHITE BLOOD COUNT</td> <td>21.5 T/MM3& lt;/td> <td>4.5-11.0</td> </tr> < tr> <th colspan="10">L100.006 - 01/26/16 04:09</ th> </tr> <tr> <td>WBC - WHITE BLOOD COUNT</td> <td>21.5 T/MM3</td> <td>4.5 -11.0</td> </tr> <tr> <th colspan=& quot;10">L200.002 - 01/26/16 04:09</th> </tr> <tr> <td>ICTERUS</td> <td>< 2 </td> <td>0-7</td> </tr> <tr > <td>HEMOLYSIS</td> <td>< 15 </td> <td>0-25</td> </tr> <tr> <th colspan="10">L100.59 - 01/26/16 04:09</th> </tr> <tr> <td>WBC - WHITE BLOOD COUNT</td& gt; <td>21.5 T/MM3</td> <td>4.5-11.0</td& gt; </tr> <tr><th colspan="10"> L900.05 - 01/26/16 08:18</th> </tr> <tr> <td>GLUCOMETER</td> <td>224 mg/dL</td> <td>65-110</td> </tr> <tr> <th colspan="10">L900.0530 - 01/26/16 11:38</th> </tr> <tr> <td>GLUCOMETER</td> <td>243 mg/dL</td> <td>65-110</td></tr> <tr> <th colspan="10">L900.05 - 15:51</th> </tr> <tr> <td> GLUCOMETER</td> <td>229 mg/dL</td> <td&gt ;65-110</td> </tr> <tr> <th colspan=& quot;10">L100.007 - 01/29/16 22:45</th> </tr> &lt ;tr> <td>WBC - WHITE BLOOD COUNT</td> <td&gt ;12.2 T/MM3</td> <td>4.5-11.0</td> </tr&gt ; <tr> <td>RED BLOOD COUNT</td> < td>3.54 M/MM3</td> <td>4.00-5.20</td> </ tr> <tr> <td>HGB - HEMOGLOBIN</td> <td& gt;9.8 GM/DL</td> <td>12-16</td> </tr> <tr> <td>HCT - HEMATOCRIT</td> <td >32.0 %</td> <td>36-46</td> </tr> <tr> <td>MEAN CORPUSCULAR VOLUME</td> <td>90.4 UM3</td> <td>80-100</td> </tr > <tr> <td>MEAN CORPUSCULAR HGB</td> <td>27.7 UUG</td> <td>26-34</td> &lt ;/tr> <tr> <td>MEAN CORPUSCULAR HGB CONC(MCHC</td&gt ; <td>30.6 GM/DL</td> <td>31-37</td> </tr> <tr> <td>RDW STANDARDDEVIATION</td& gt; <td>54.3 FL</td> <td>36.9-50.2</td&gt ; </tr> <tr> <td>PLT - PLATELET COUNT</ td> <td>270 T/MM3</td> <td>130-400</td > </tr> <tr> <td>MEAN PLATELET VOLUME& lt;/td> <td>10.5 UM3</td> <td>9.4-12.4&lt ;/td> </tr> <tr> <th colspan="10& quot;>L200.0020 - 01/29/16 22:45</th> </tr> <tr& gt; <td>ICTERUS</td> <td>< 2 </td& gt; <td>0-7</td> </tr> <tr> <td>HEMOLYSIS</td> <td>39 </td> & lt;td>0-25</td> </tr> <tr> <th colspan="10">L900.0530 - 01/30/16 01:25</th> </tr& gt; <tr> <td>GLUCOMETER</td> <td& gt;82 mg/dL</td> <td>65-110</td> </tr> <tr> <th colspan="10">L900.0530 - 02:04</th> </tr> <tr> <td> GLUCOMETER</td> <td>156 mg/dL</td> <td>65 -110</td> </tr><tr> <th colspan="10& quot;>L600.0175 - 01/30/16 02:27</th> </tr> <tr& gt; <td>SPECIMEN TYPE, URINE</td> <td> CLEANCATCH-MIDSTREAM </td> <td /> </tr> <tr> <td>COLOR,URINE</td> <td> ORANGE </td> <td>YELLOW</td> </tr> <tr> <td>TURBIDITY, URINE</td> <td> CLOUDY </td> <td>CLEAR</td> </tr> <tr> <td>SPECIFIC GRAVITY,URINE</td> <td> >=1.030 </td> <td>1.015-1.025</td> </tr&gt ; <tr> <td>PH, URINE - DIPSTICK</td> <td>5.0 </td> <td>5.0-8.0</td> </tr> <tr> <td>LEUKOCYTE ESTERASE ,URINE</td> <td>INCONCL DUE TO COLOR </td> <td>NEGATIVE</td& gt; </tr> <tr> <td>NITRITE,URINE</td> <td>INCONCL DUE TO COLOR </td> <td>NEGATIVE </td> </tr> <tr> <td>PROTEIN, URINE - DIPSTICK</td> <td>INCONCL DUE TO COLOR </td> <td>NEGATIVE</td> </tr> <tr> <td>GLUCOSE, URINE - DIPSTICK</td> <td> INCONCL DUE TO COLOR </td> <td>NEGATIVE</td> & lt;/tr> <tr> <td>KETONES,URINE - DIPSTICK</td& gt; <td>INCONCL DUE TO COLOR </td> <td> NEGATIVE</td> </tr> <tr> <td> UROBILINOGEN,URINE</td> <td>INCONCL DUE TO COLOR EU/DL</ td> <td>NORMAL</td> </tr> <tr&gt ; <td>BILIRUBIN,URINE - DIPSTICK</td> <td> INCONCL DUE TO COLOR </td> <td>NEGATIVE</td> & lt;/tr> <tr> <td>BLOOD, URINE</td> <td>INCONCL DUE TO COLOR </td> <td>NEGATIVE</td& gt; </tr> <tr> <td>WBC,URINE</td&gt ; <td>TNTC /HPF</td> <td>0-5</td> </tr> <tr> <td>RBC,URINE</td> <td>20-30 /HPF</td> <td>0-3</td> </ tr> <tr> <td>SQUAMOUS EPITHELIAL CELL,UR</td& gt; <td>0-5 </td> <td /> </tr> <tr> <td>BACTERIA,URINE</td> <td& gt;3+ </td> <td>NEGATIVE</td> </tr> <tr> <td>CULTURE SET UP,URINE</td> < td>CULT REFLEXED &SETUP </td> <td /> </tr&gt ; <tr> <th colspan="10">M153.0000 - 02:59</th> </tr> <tr> <td> URINE CULTURE.</td> <td> CFU/ml</td> <td /> </tr> <tr> <th colspan="10"> L100.0050 - 02/05/16 08:37</th> </tr> <tr> <td>WBC - WHITE BLOOD COUNT</td> <td>10.1 T/MM3& lt;/td> <td>4.5-11.0</td> </tr> <tr > <td>RED BLOOD COUNT</td> <td>4.62 M/MM3 </td> <td>4.00-5.20</td> </tr> &lt ;tr> <td>HGB - HEMOGLOBIN</td> <td>12.4 GM/DL</td> <td>12-16</td> </tr> & lt;tr> <td>HCT - HEMATOCRIT</td> <td>41.1 &amp ;#37;</td> <td>36-46</td> </tr> & lt;tr> <td>MEAN CORPUSCULAR VOLUME</td> <td& gt;89.0 UM3</td> <td>80-100</td> </tr> <tr> <td>MEAN CORPUSCULAR HGB</td> & lt;td>26.8 UUG</td> <td>26-34</td> </tr& gt; <tr> <td>MEAN CORPUSCULAR HGB CONC(MCHC</td& gt; <td>30.2 GM/DL</td> <td>31-37</td&gt ; </tr> <tr> <td>RDW STANDARD DEVIATION </td> <td>51.7 FL</td> <td>36.9-50.2& lt;/td> </tr> <tr> <td>PLT - PLATELET COUNT</td> <td>355 T/MM3</td> < td>130-400</td> </tr> <tr> <td&gt ;MEAN PLATELET VOLUME</td> <td>9.2 UM3</td> <td>9.4-12.4</td> </tr> <tr> < td>NEUTROPHILS % (AUTO)</td> <td>76.6 %& lt;/td> <td>33-66</td> </tr> <tr& gt; <td>LYMPHOCYTES % (AUTO)</td> <td& gt;16.5 %</td> <td>23-45</td> </tr& gt; <tr> <td>MONOCYTES % (AUTO)</td> <td>4.5 %</td> <td>0-9.0</td> </tr> <tr> <td>EOSINOPHILS % ( AUTO)</td> <td>1.5 %</td> <td> 0-4</td> </tr> <tr> <td> BASOPHILS % (AUTO)</td> <td>0.6 %</td&gt ; <td>0-2</td> </tr> <tr> <td>IMMATURE GRANULOCYTE % (AUTO)</td> <td&gt ;0.3 %</td> <td>0.0-0.5</td> </tr& gt; <tr> <td>NEUTROPHILS # (AUTO)</td> <td>7.7 T/MM3</td> <td>1.8-7.7</td> </tr& gt; <tr> <td>LYMPHOCYTES # (AUTO)</td> <td>1.7 T/MM3</td> <td>1-4.8</td> </tr&gt ; <tr> <td>MONOCYTES # (AUTO)</td> & lt;td>0.5 T/MM3</td> <td>0-0.8</td> </tr > <tr><td>EOSINOPHILS # (AUTO)</td> <td& gt;0.2 T/MM3</td> <td>0-0.5</td> </tr> <tr> <td>BASOPHILS # (AUTO)</td> < td>0.1 T/MM3</td> <td>0-0.2</td> </tr&gt ; <tr> <td>IMMATURE GRANULOCYTE # (AUTO)</td> <td>0.03 T/MM3</td> <td>0.00-0.03</td> </tr> <tr> <th colspan="10"> L200.0050 - 02/05/16 08:37</th> </tr> <tr> <td>ICTERUS</td> <td>< 2 </td> <td>0-7</td> </tr> <tr> &lt ;td>HEMOLYSIS</td> <td>43 </td> <td>0-25& lt;/td> </tr> <tr> <th colspan="10& quot;>L750.8400 - 02/05/16 11:12</th> </tr> <tr&gt ; <td>STONE SOURCE</td> <td>K[place]ney </td& gt; <td /> </tr> <tr> <th colspan="10">L900.0530 - 02/05/16 13:12</th> </tr& gt; <tr> <td>GLUCOMETER</td> <td& gt;175 mg/dL</td> <td>65-110</td> </tr> <tr> <th colspan="10">M110.0195 - 14:46</th> </tr> <tr> <td>ANTI -D</td> <td>NO GROWTH AFTER 5 DAYS </td> &lt ;td /> </tr> <tr> <th colspan="10& quot;>L200.0020 - 02/13/16 14:46</th> </tr> <tr& gt; <td>ICTERUS</td> <td>< 2 </td& gt; <td>0-7</td> </tr> <tr> <td>HEMOLYSIS</td> <td>26 </td> <td&gt ;0-25</td> </tr> <tr> <th colspan=&quot ;10">L200.184702/13/16 14:46</th> </tr> <tr& gt; <td>TROPONIN I</td> <td>0.015 ng/ml</ td> <td>0-0.12</td> </tr> <tr> <th colspan="10">L200.206602/13/16 14:47</th> </tr> <tr> <td>LACTATE - LACTIC ACID, VENOUS</td> <td>6.0 MMOL/L</td> <td> 0.6-2.2</td> </tr> <tr> <th colspan= "10">L200.206702/13/16 14:47</th> </tr> <tr> <td>PROCALCITONIN</td> <td> 34.03 NG/ML</td> <td /> </tr> <tr&gt ; <th colspan="10">L100.0050 - 02/13/16 14:48</th&gt ; </tr> <tr> <td>WBC - WHITE BLOOD COUNT& lt;/td> <td>20.8 T/MM3</td> <td>4.5-11.0& lt;/td> </tr> <tr> <td>RED BLOOD COUNT</td> <td>4.26 M/MM3</td> <td> 4.00-5.20</td> </tr> <tr> <td> HGB - HEMOGLOBIN</td> <td>11.6 GM/DL</td> & lt;td>12-16</td> </tr> <tr> <td& gt;HCT - HEMATOCRIT</td> <td>37.5 %</td> <td>36-46</td> </tr> <tr> & lt;td>MEAN CORPUSCULAR VOLUME</td> <td>88.0 UM3</td& gt; <td>80-100</td> </tr> <tr> <td>MEAN CORPUSCULAR HGB</td> <td>27.2 UUG&lt ;/td> <td>26-34</td> </tr> <tr> <td>MEAN CORPUSCULAR HGB CONC(MCHC</td> <td> 30.9GM/DL</td> <td>31-37</td> </tr> <tr> <td>RDW STANDARD DEVIATION</td> &lt ;td>52.4 FL</td> <td>36.9-50.2</td> </tr > <tr> <td>PLT - PLATELET COUNT</td> <td>296 T/MM3</td> <td>130-400</td> </tr> <tr> <th colspan="10"> L100.010 - 02/13/16 14:48</th> </tr> <tr> <td>NEUTROPHILS % (MANUAL)</td> <td>71.0 &# 37;</td> <td>33-66</td> </tr> <tr&gt ; <td>BAND NEUTROPHILS %</td> <td> 25.0 %</td> <td>0-6</td> </tr> <tr> <thcolspan="10">L600.01702/13/16 14:54</th> </tr> <tr> <td> SPECIMEN TYPE, URINE</td> <td>CLEANCATCH-MIDSTREAM </td& gt; <td /> </tr> <tr> <td& gt;COLOR,URINE</td> <td>YELLOW </td> <td& gt;YELLOW</td> </tr> <tr> <td>TURBIDITY , URINE</td> <td>CLOUDY </td> <td>CLEAR&lt ;/td> </tr> <tr> <td>SPECIFIC GRAVITY,URINE</td> <td>1.020 </td> <td&gt ;1.015-1.025</td> </tr> <tr> <td> PH, URINE - DIPSTICK</td> <td>6.0 </td> < td>5.0-8.0</td> </tr> <tr> <td> LEUKOCYTE ESTERASE ,URINE</td> <td>2+ </td> <td>NEGATIVE</td> </tr> <tr> < td>NITRITE,URINE</td> <td>NEGATIVE </td> <td>NEGATIVE</td> </tr> <tr> < td>PROTEIN,URINE - DIPSTICK</td> <td>1+ </td> <td>NEGATIVE</td> </tr> <tr> <td>GLUCOSE, URINE - DIPSTICK</td> <td>NEGATIVE & lt;/td> <td>NEGATIVE</td> </tr> < tr> <td>KETONES,URINE - DIPSTICK</td> <td&gt ;NEGATIVE </td> <td>NEGATIVE</td> </tr> <tr> <td>UROBILINOGEN,URINE</td> &lt ;td>0.2 EU/DL</td> <td>NORMAL</td> </tr& gt; <tr> <td>BILIRUBIN,URINE - DIPSTICK</td> <td>NEGATIVE </td> <td>NEGATIVE</td> </tr> <tr> <td>BLOOD, URINE</td> <td>2+ </td> <td>NEGATIVE</td> &lt ;/tr> <tr> <td>WBC,URINE</td> < td>50-200 /HPF</td> <td>0-5</td> </tr&gt ; <tr> <td>WBC CLUMPS,URINE</td> < td>FEW </td> <td /> </tr> <tr&gt ; <td>RBC,URINE</td> <td>1-3 /HPF</td> <td>0-3</td> </tr> <tr> & lt;td>SQUAMOUS EPITHELIAL CELL,UR</td> <td>0-5 </td& gt; <td /> </tr> <tr> <td> BACTERIA,URINE</td> <td>4+ </td> <td> NEGATIVE</td> </tr> <tr> <td> CULTURE SET UP,URINE</td> <td>CULT REFLEXED &SETUP & lt;/td> <td /> </tr> <tr> & lt;th colspan="10">M153.0000 - 02/13/16 15:13</th> </tr > <tr> <td>URINE CULTURE.</td> &lt ;td> CFU/ml</td> <td /> </tr> < tr> <th colspan="10">L900.0530 - 02/13/16 18:50</ th> </tr> <tr><td>GLUCOMETER</td> <td>278 mg/dL</td> <td>65-110</td> </tr> <tr> <th colspan="10"> L200.206602/13/16 19:49</th> </tr> <tr> <td>LACTATE - LACTIC ACID, VENOUS</td> <td>2.1 MMOL/L</td> <td>0.6-2.2</td> </tr> & lt;tr> <th colspan="10">L200.206702/13/16 19:49& lt;/th> </tr> <tr> <td>PROCALCITONIN </td> <td>35.40 NG/ML</td> <td /> < /tr> <tr> <th colspan="10">L900.529 20:38</th> </tr> <tr> <td> GLUCOMETER</td> <td>307 mg/dL</td> <td&gt ;65-110</td> </tr> <tr> <th colspan= "10">L900.52902/14/16 00:39</th> </tr> <tr> <td>GLUCOMETER</td> <td>285 mg /dL</td> <td>65-110</td> </tr> <tr& gt; <th colspan="10">L200.4902/14/16 01:29</th& gt; </tr> <tr> <td>ICTERUS</td> <td>< 2 </td> <td>0-7</td> </tr> <tr> <td>HEMOLYSIS</td> <td>< 15 </td> <td>0-25</td> < /tr> <tr> <th colspan="10">L200.18402/14/16 01:29</th> </tr> <tr> <td& gt;HEMOLYSIS</td> <td>< 15 </td> < td>0-25</td> </tr> <tr> <th colspan="10">L100.4902/14/16 01:29</th> </tr&gt ; <tr> <td>WBC - WHITE BLOOD COUNT</td> <td>11.8 T/MM3</td> <td>4.5-11.0</td> </tr> <tr> <th colspan="10"> L900.52902/14/16 06:05</th> </tr> <tr> <td>GLUCOMETER</td> <td>253 mg/dL</td> <td>65-110</td> </tr> <tr> <th colspan="10">L900.52902/14/16 09:26</th> </tr> <tr><td>GLUCOMETER</td> <td> 256 mg/dL</td> <td>65-110</td> </tr> <tr> <th colspan="10">L900.52902/14/16 12:00</th> </tr> <tr> <td> GLUCOMETER</td> <td>236 mg/dL</td> <td&gt ;65-110</td> </tr> <tr> <th colspan=&quot ;10">L900.52902/14/16 17:06</th></tr> <tr> <td>GLUCOMETER</td> <td>181 mg/dL</td&gt ; <td>65-110</td> </tr> <tr> <th colspan="10">L900.0530 - 02/14/16 20:49</th> </tr> <tr> <td>GLUCOMETER</td> <td>167 mg/dL</td> <td>65-110</td> & lt;/tr> <tr> <th colspan="10"> L200.49 - 02/15/16 04:34</th> </tr> <tr> <td>ICTERUS</td> <td>< 2 </td> <td>0-7</td> </tr> <tr> < td>HEMOLYSIS</td> <td>< 15 </td> & lt;td>0-25</td> </tr> <tr> <th colspan="10">L100.49 - 02/15/16 04:34</th> </tr& gt; <tr> <td>WBC - WHITE BLOOD COUNT</td> <td>9.9 T/MM3</td> <td>4.5-11.0</td> </tr> <tr> <td>RED BLOOD COUNT</td> <td>3.91 M/MM3</td> <td>4.00-5.20</td&gt ; </tr> <tr> <td>HGB - HEMOGLOBIN</td > <td>10.6 GM/DL</td> <td>12-16</td&gt ; </tr> <tr> <td>HCT- HEMATOCRIT</td > <td>35.3 %</td> <td>36-46</ td> </tr> <tr> <th colspan="10& quot;>L900.0530 - 02/15/16 05:37</th> </tr> <tr& gt; <td>GLUCOMETER</td> <td>184 mg/dL</td&gt ; <td>65-110</td> </tr> <tr> <th colspan="10">L200.1848 - 02/15/16 08:43</th> </tr> <tr> <td>HEMOLYSIS</td> <td>< 15 </td> <td>0-25</td> </tr> <tr> <th colspan="10"> L900.0530 - 02/15/16 12:15</th> </tr> <tr> & lt;td>GLUCOMETER</td> <td>209 mg/dL</td> <td>65-110</td> </tr> <tr> < th colspan="10">L900.0502/15/16 17:15</th> </tr > <tr> <td>GLUCOMETER</td> <td& gt;228 mg/dL</td> <td>65-110</td> </tr> <tr> <th colspan="10">L900.529 21:24</th> </tr> <tr> <td> GLUCOMETER</td> <td>145 mg/dL</td> <td&gt ;65-110</td> </tr> <tr> <th colspan= "10">L200.01402/15/16 21:25</th> </tr> <tr> <td>HEMOLYSIS</td> <td>&lt ; 15 </td> <td>0-25</td> </tr> & lt;tr> <th colspan="10">L200.199902/15/16 21:25& lt;/th> </tr> <tr> <td>MAGNESIUM< /td> <td>1.5 MG/DL</td> <td>1.6-2.3</ td> </tr> <tr> <th colspan="10& quot;>L200.3850 - 02/15/16 21:25</th> </tr> <tr& gt; <td>THYROID STIM HORMONE-TSH</td> <td>3.53 MIU/L</td> <td>0.47-4.68</td> </tr> &lt ;tr> <th colspan="10">L900.0530 - 02/16/16 05:58< /th> </tr> <tr> <td>GLUCOMETER</ td> <td>132 mg/dL</td> <td>65-110</td& gt; </tr> <tr> <th colspan="10"& gt;L100.0060 - 02/16/16 07:22</th> </tr> <tr> <td>WBC - WHITE BLOOD COUNT</td> <td>7.1 T/MM3& lt;/td><td>4.5-11.0</td> </tr> <tr> <td>RED BLOOD COUNT</td> <td>4.01 M/MM3</td > <td>4.00-5.20</td> </tr> <tr&gt ; <td>HGB - HEMOGLOBIN</td> <td>10.9 GM/DL& lt;/td> <td>12-16</td> </tr> <tr& gt; <td>HCT - HEMATOCRIT</td> <td>35.6 & #37;</td> <td>36-46</td> </tr> & lt;tr> <td>MEAN CORPUSCULAR VOLUME</td> <td& gt;88.8 UM3</td> <td>80-100</td> </tr> <tr> <td>MEAN CORPUSCULAR HGB</td> < td>27.2 UUG</td> <td>26-34</td> </tr&gt ; <tr> <td>MEAN CORPUSCULAR HGB CONC(MCHC</td&gt ; <td>30.6 GM/DL</td> <td>31-37</td> </tr> <tr> <td>RDW STANDARD DEVIATION& lt;/td> <td>51.2 FL</td> <td>36.9-50.2&lt ;/td> </tr> <tr> <td>PLT - PLATELET COUNT</td> <td>289 T/MM3</td> <td>130- 400</td> </tr> <tr> <td>MEAN PLATELET VOLUME</td> <td>9.7 UM3</td> <td >9.4-12.4</td> </tr> <tr> <td> NEUTROPHILS % (MANUAL)</td> <td>75.0 %</ td> <td>33-66</td> </tr> <tr> <td>BAND NEUTROPHILS %</td> <td> 8.0 %</td> <td>0-6</td> </tr> <tr> <th colspan="10">L200.0050 - 02/16/16 07:22&lt ;/th> </tr> <tr> <td>ICTERUS</td& gt; <td>< 2 </td> <td>0-7</td> </tr> <tr> <td>HEMOLYSIS</td> <td>< 15 </td> <td>0-25</td> </tr> <tr> <th colspan="10">L900.0502/16/16 11:28</th> </tr> <tr> <td& gt;GLUCOMETER</td> <td>177 mg/dL</td> <td >65-110</td> </tr> <tr> <th colspan="10">L900.0502/16/16 17:12</th> </tr& gt; <tr> <td>GLUCOMETER</td> <td> 113 mg/dL</td> <td>65-110</td> </tr> <tr> <th colspan="10">L900.0502/16/16 21:52</th> </tr> <tr> <td> GLUCOMETER</td> <td>83 mg/dL</td> <td> 65-110</td> </tr> <tr> <th colspan=& quot;10">L900.0502/17/16 05:58</th> </tr> & lt;tr> <td>GLUCOMETER</td> <td>86 mg/dL& lt;/td> <td>65-110</td> </tr> <tr > <th colspan="10">L200.49 - 02/17/16 08:19</th > </tr> <tr> <td>ICTERUS</td> <td>< 2 </td> <td>0-7</td> </tr> <tr> <td>HEMOLYSIS</td> < td>< 15 </td> <td>0-25</td> </tr& gt; <tr> <th colspan="10">L200.09/28 08:19</th> </tr> <tr> <td> MAGNESIUM</td> <td>1.9 MG/DL</td> <td> 1.6-2.3</td> </tr> <tr> <th colspan= "10">L900.52902/17/16 11:11</th> </tr> <tr><td>GLUCOMETER</td> <td>176 mg/dL</td > <td>65-110</td> </tr> <tr> <th colspan="10">L900.52902/17/16 15:59</th> </tr> <tr> <td>GLUCOMETER</td> <td>118 mg/dL</td> <td>65-110</td> </tr> <tr> <th colspan="10"> L900.05 - 02/17/16 18:31</th></tr> <tr> < td>GLUCOMETER</td> <td>113 mg/dL</td> &lt ;td>65-110</td> </tr> <tr> <th colspan="10">L900.05 - 02/17/16 20:44</th> </tr& gt; <tr> <td>GLUCOMETER</td> <td> 128 mg/dL</td> <td>65-110</td> </tr> <tr> <th colspan="10">L100.49 - 02/18/16 03:39</th> </tr> <tr> <td>WBC - WHITE BLOOD COUNT</td> <td>11.2 T/MM3</td> & lt;td>4.5-11.0</td> </tr> <tr> < th colspan="10">L200.491603:[id number]</th> </tr > <tr> <td>ICTERUS</td><td>< 2 </td> <td>0-7</td> </tr> <tr > <td>HEMOLYSIS</td> <td>< 15 < /td> <td>0-25</td> </tr> <tr> <th colspan="10">L200.2068 - 02/18/16 03:39</th&gt ; </tr> <tr> <td>PROCALCITONIN</td& gt; <td>14.68 NG/ML</td> <td /> </ tr> <tr> <th colspan="10">L100.0060 - 10/28 03:39</th> </tr> <tr> <td>WBC - WHITE BLOOD COUNT</td> <td>11.2 T/MM3</td> & lt;td>4.5-11.0</td> </tr> <tr> < th colspan="10">L600.0175 - 02/18/16 05:43</th> </ tr> <tr> <td>SPECIMEN TYPE, URINE</td> <td>CARTWRIGHT INDWELLING </td> <td /> </tr& gt; <tr> <td>COLOR,URINE</td> <td& gt;YELLOW </td> <td>YELLOW</td> </tr> <tr> <td>TURBIDITY, URINE</td> <td& gt;CLEAR </td> <td>CLEAR</td> </tr> <tr> <td>SPECIFIC GRAVITY,URINE</td> &lt ;td>1.015 </td> <td>1.015-1.025</td> </ tr> <tr> <td>PH, URINE - DIPSTICK</td> <td>5.0 </td> <td>5.0-8.0</td> </ tr> <tr> <td>LEUKOCYTE ESTERASE ,URINE</td&gt ; <td>1+ </td> <td>NEGATIVE</td> & lt;/tr> <tr> <td>NITRITE,URINE</td> <td>NEGATIVE </td> <td>NEGATIVE</td> </tr > <tr> <td>PROTEIN,URINE - DIPSTICK</td> <td>NEGATIVE </td> <td>NEGATIVE</td> </tr> <tr> <td>GLUCOSE, URINE - DIPSTICK& lt;/td> <td>NEGATIVE </td> <td>NEGATIVE</td& gt; </tr> <tr> <td>KETONES,URINE - DIPSTICK</td> <td>NEGATIVE </td> <td> NEGATIVE</td> </tr> <tr> <td> UROBILINOGEN,URINE</td> <td>0.2 EU/DL</td> & lt;td>NORMAL</td> </tr> <tr> <td& gt;BILIRUBIN,URINE - DIPSTICK</td> <td>NEGATIVE </td&gt ; <td>NEGATIVE</td> </tr> <tr> <td>BLOOD, URINE</td> <td>3+ </td> <td>NEGATIVE</td> </tr> <tr> & lt;th colspan="10">L600.0175 - 02/18/16 05:43</th> &lt ;/tr> <tr> <td>SPECIMEN TYPE, URINE</td> <td>CARTWRIGHT INDWELLING </td> <td /> < /tr> <tr> <td>COLOR,URINE</td> <td& gt;YELLOW </td> <td>YELLOW</td> </tr> <tr> <td>TURBIDITY, URINE</td> <td> CLEAR </td> <td>CLEAR</td> </tr> <tr> <td>SPECIFIC GRAVITY,URINE</td> <td& gt;1.015 </td> <td>1.015-1.025</td> </tr> <tr> <td>PH, URINE- DIPSTICK</td> <td& gt;5.0 </td> <td>5.0-8.0</td> </tr> < tr> <td>LEUKOCYTE ESTERASE ,URINE</td> <td& gt;1+ </td> <td>NEGATIVE</td> </tr> <tr> <td>NITRITE,URINE</td> <td> NEGATIVE </td> <td>NEGATIVE</td> </tr> <tr> <td>PROTEIN,URINE - DIPSTICK</td> <td>NEGATIVE </td> <td>NEGATIVE</td> </tr> <tr> <td>GLUCOSE, URINE - DIPSTICK</ td> <td>NEGATIVE </td> <td>NEGATIVE</ td> </tr> <tr> <td>KETONES,URINE - DIPSTICK& lt;/td> <td>NEGATIVE </td> <td>NEGATIVE& lt;/td> </tr> <tr> <td>UROBILINOGEN, URINE</td> <td>0.2 EU/DL</td> <td> NORMAL</td> </tr> <tr> <td> BILIRUBIN,URINE - DIPSTICK</td> <td>NEGATIVE </td> <td>NEGATIVE</td> </tr> <tr> & lt;td>BLOOD, URINE</td> <td>3+ </td> < td>NEGATIVE</td> </tr> <tr> <td& gt;WBC,URINE</td> <td>10-20 /HPF</td> <td >0-5</td> </tr> <tr> <td>RBC,URINE </td> <td>20-30 /HPF</td> <td>0-3</ td> </tr> <tr> <td>BACTERIA,URINE&lt ;/td> <td>TRACE </td> <td>NEGATIVE</td> </tr> <tr> <td>CULTURE SET UP,URINE</td > <td>CULT REFLEXED &SETUP </td> < td /> </tr> <tr> <th colspan="10& quot;>M153.0000 02/18/16 05:55</th> </tr> <tr& gt; <td>URINE CULTURE.</td> <td>NO GROWTH AFTER 48 HOURS </td> <td /> </tr> < tr> <th colspan="10">L900.52902/18/16 06:18</ th> </tr> <tr> <td>GLUCOMETER</td > <td>146 mg/dL</td> <td>65-110</td&gt ; </tr> <tr> <th colspan="10"> L900.52902/18/16 13:12</th> </tr> <tr> & lt;td>GLUCOMETER</td> <td>122 mg/dL</td> <td>65-110</td> </tr> <tr> < th colspan="10">L900.52902/18/16 17:58</th> </ tr> <tr> <td>GLUCOMETER</td> < td>121 mg/dL</td> <td>65-110</td> </tr& gt; <tr> <th colspan="10">L900.0530 - 10/28 21:57</th> </tr> <tr> <td> GLUCOMETER</td> <td>88 mg/dL</td> <td> 65-110</td> </tr> <tr> <th colspan=& quot;10">L100.0050 - 02/19/16 04:16</th> </tr> <tr> <td>WBC - WHITE BLOOD COUNT</td> <td> 7.2 T/MM3</td> <td>4.5-11.0</td> </tr> <tr> <td>RED BLOOD COUNT</td> <td& gt;3.60 M/MM3</td> <td>4.00-5.20</td> </tr> <tr> <td>HGB - HEMOGLOBIN</td> <td&gt ;9.7 GM/DL</td> <td>12-16</td> </tr> <tr> <td>HCT - HEMATOCRIT</td> <td& gt;32.1 %</td> <td>36-46</td> </tr& gt; <tr><td>MEAN CORPUSCULAR VOLUME</td> < td>89.2 UM3</td> <td>80-100</td> </tr&gt ; <tr> <td>MEAN CORPUSCULAR HGB</td> <td>26.9 UUG</td> <td>26-34</td> </tr > <tr> <td>MEAN CORPUSCULAR HGB CONC(MCHC</td& gt; <td>30.2 GM/DL</td> <td>31-37</td&gt ; </tr> <tr><td>RDW STANDARD DEVIATION</td&gt ; <td>50.4 FL</td> <td>36.9-50.2</td> </tr> <tr> <td>PLT - PLATELET COUNT&lt ;/td> <td>250 T/MM3</td> <td>130-400</ td> </tr> <tr> <td>MEAN PLATELET VOLUME</td> <td>9.6 UM3</td> <td>9.4- 12.4</td> </tr> <tr> <td> NEUTROPHILS % (AUTO)</td> <td>69.2 %</td > <td>33-66</td> </tr> <tr> <td>LYMPHOCYTES % (AUTO)</td> <td> 18.0 %</td> <td>23-45</td> </tr> <tr> <td>MONOCYTES % (AUTO)</td> < td>8.6 %</td> <td>0-9.0</td> </ tr> <tr> <td>EOSINOPHILS % (AUTO)</td& gt; <td>3.5 %</td> <td>0-4</td&gt ; </tr> <tr> <td>BASOPHILS % ( AUTO)</td> <td>0.3 %</td> <td> 0-2</td> </tr> <tr> <td>IMMATURE GRANULOCYTE %(AUTO)</td> <td>0.4 %</td& gt; <td>0.0-0.5</td> </tr> <tr> <td>NEUTROPHILS # (AUTO)</td> <td>5.0 T/MM3&lt ;/td> <td>1.8-7.7</td> </tr> <tr& gt; <td>LYMPHOCYTES # (AUTO)</td> <td>1.3 T/ MM3</td> <td>1-4.8</td> </tr> &lt ;tr> <td>MONOCYTES # (AUTO)</td> <td>0.6 T/MM3</td> <td>0-0.8</td> </tr> & lt;tr> <td>EOSINOPHILS # (AUTO)</td> <td> 0.3 T/MM3</td> <td>0-0.5</td> </tr> <tr> <td>BASOPHILS # (AUTO)</td> <td& gt;0.0 T/MM3</td> <td>0-0.2</td> </tr> <tr> <td>IMMATURE GRANULOCYTE # (AUTO)</td> <td>0.03 T/MM3</td> <td>0.00-0.03</td> </tr> <tr> <th colspan="10"> L200.002 - 02/19/16 04:16</th> </tr> <tr> <td>ICTERUS</td> <td>< 2 </td> <td>0-7</td> </tr> <tr> &lt ;td>HEMOLYSIS</td> <td>< 15 </td> <td>0-25</td> </tr> <tr> <th colspan="10">L200.199902/19/16 04:16</th> </tr& gt; <tr> <td>MAGNESIUM</td> <td>1.9 MG/DL</td> <td>1.6-2.3</td> </tr> <tr> <th colspan="10">L900.52902/19/16 06: 08</th> </tr> <tr> <td>GLUCOMETER </td> <td>174 mg/dL</td> <td>65-110&lt ;/td> </tr> <tr> <th colspan="10& quot;>L900.52902/19/16 11:13</th> </tr> <tr& gt; <td>GLUCOMETER</td> <td>190 mg/dL</td> <td>65-110</td> </tr> <tr> <th colspan="10">L900.02/20/16 11:53</th> </tr> <tr> <td>GLUCOMETER</td> <td>163 mg/dL</td> <td>65-110</td> & lt;/tr> <tr> <th colspan="10">L900.52902/20/16 17:22</th> </tr> <tr> <td> GLUCOMETER</td> <td>145 mg/dL</td> <td&gt ;65-110</td> </tr> <tr> <th colspan= "10">L900.52902/20/16 20:55</th> </tr> <tr> <td>GLUCOMETER</td> <td>136 mg /dL</td> <td>65-110</td> </tr> & lt;tr> <th colspan="10">L900.0502/21/16 06:08& lt;/th> </tr> <tr> <td>GLUCOMETER&lt ;/td> <td>154 mg/dL</td> <td>65-110</ td> </tr> <tr> <th colspan="10& quot;>L900.05 - 02/21/16 11:13</th> </tr> <tr& gt; <td>GLUCOMETER</td> <td>165 mg/dL</td > <td>65-110</td> </tr> <tr> <th colspan="10">L900.05 - 02/21/16 17:33</th> </tr><tr> <td>GLUCOMETER</td> <td >114 mg/dL</td><td>65-110</td> </tr> & lt;tr> <th colspan="10">L900.529 - 02/21/16 21:01& lt;/th> </tr> <tr> <td>GLUCOMETER&lt ;/td> <td>155 mg/dL</td> <td>65-110</ td> </tr> <tr> <th colspan="10"& gt;L200.005 - 02/22/16 04:42</th> </tr> <tr> <td>ICTERUS</td> <td>< 2 </td> <td>0-7</td> </tr> <tr> & lt;td>HEMOLYSIS</td> <td>< 15 </td> <td>0-25</td> </tr> <tr> < th colspan="10">L100.0050 - 02/22/16 04:42</th> </ tr> <tr> <td>WBC - WHITE BLOOD COUNT</td> <td>7.0 T/MM3</td> <td>4.5-11.0</td> </tr> <tr> <td>RED BLOOD COUNT</td&gt ; <td>4.00 M/MM3</td> <td>4.00-5.20</td& gt; </tr> <tr> <td>HGB - HEMOGLOBIN</ td> <td>10.6 GM/DL</td> <td>12-16</td& gt; </tr> <tr> <td>HCT - HEMATOCRIT< /td> <td>35.8 %</td> <td>36-46&lt ;/td> </tr> <tr> <td>MEAN CORPUSCULAR VOLUME</td> <td>89.5 UM3</td> & lt;td>80-100</td> </tr> <tr> <td& gt;MEAN CORPUSCULAR HGB</td> <td>26.5 UUG</td> <td>26-34</td> </tr> <tr> &lt ;td>MEAN CORPUSCULAR HGB CONC(MCHC</td> <td>29.6 GM/DL& lt;/td> <td>31-37</td> </tr> <tr& gt; <td>RDW STANDARD DEVIATION</td> <td> 50.1 FL</td> <td>36.9-50.2</td> </tr> <tr> <td>PLT - PLATELET COUNT</td> &lt ;td>292 T/MM3</td> <td>130-400</td> </tr > <tr> <td>MEAN PLATELET VOLUME</td> <td>9.5 UM3</td> <td>9.4-12.4</td> & lt;/tr> <tr> <td>NEUTROPHILS % (AUTO)</td > <td>58.6 %</td> <td>33-66</ td> </tr> <tr><td>LYMPHOCYTES % (AUTO )</td> <td>28.7 %</td> <td>23-45</ td> </tr> <tr> <td>MONOCYTES &# 37; (AUTO)</td> <td>8.6 %</td> < td>0-9.0</td> </tr> <tr> <td> EOSINOPHILS % (AUTO)</td> <td>3.3 %</td> <td>0-4</td> </tr><tr> <td& gt;BASOPHILS % (AUTO)</td> <td>0.4 %</td > <td>0-2</td> </tr> <tr> <td>IMMATURE GRANULOCYTE % (AUTO)</td> <td >0.4 %</td> <td>0.0-0.5</td> </tr> <tr> <td>NEUTROPHILS # (AUTO)</td> < td>4.1 T/MM3</td> <td>1.8-7.7</td> </tr> <tr> <td>LYMPHOCYTES # (AUTO)</td> < td>2.0 T/MM3</td> <td>1-4.8</td> </tr&gt ; <tr> <td>MONOCYTES # (AUTO)</td> <td> 0.6 T/MM3</td> <td>0-0.8</td> </tr> <tr> <td>EOSINOPHILS # (AUTO)</td> < td>0.2 T/MM3</td> <td>0-0.5</td> </tr&gt ; <tr> <td>BASOPHILS # (AUTO)</td> < td>0.0 T/MM3</td> <td>0-0.2</td> </tr&gt ; <tr> <td>IMMATURE GRANULOCYTE # (AUTO)</td> <td>0.03 T/MM3</td> <td>0.00-0.03</td&gt ; </tr> <tr> <th colspan="10"&gt ;L900.0530 - 02/22/16 06:22</th> </tr> <tr> <td>GLUCOMETER</td> <td>107 mg/dL</td> <td>65-110</td> </tr> <tr> <th colspan="10">L900.52902/22/16 11:24</th> </tr> <tr> <td>GLUCOMETER</td> <td>174 mg/dL</td> <td>65-110</td> & lt;/tr> <tr><th colspan="10">L900.529 16:46</th> </tr> <tr> <td> GLUCOMETER</td> <td>100 mg/dL</td> <td&gt ;65-110</td> </tr> <tr> <th colspan= "10">L900.52902/22/16 20:16</th> </tr> <tr> <td>GLUCOMETER</td> <td>148 mg /dL</td> <td>65-110</td></tr> <tr&gt ; <th colspan="10">L900.52902/23/16 06:36</th&gt ; </tr> <tr> <td>GLUCOMETER</td> <td>107 mg/dL</td> <td>65-110</td> </tr> <tr> <th colspan="10"> L900.529 - 02/23/16 11:47</th> </tr> <tr> <td>GLUCOMETER</td> <td>143 mg/dL</td> < td>65-110</td> </tr> <tr> <th colspan="10">L900.05 - 02/23/16 17:10</th> </tr& gt; <tr> <td>GLUCOMETER</td> <td& gt;88 mg/dL</td> <td>65-110</td> </tr> <tr> <th colspan="10">L900.529 - 02/23/16 20:46</th> </tr> <tr> <td> GLUCOMETER</td> <td>160 mg/dL</td> <td>65-110& lt;/td> </tr> <tr> <th colspan="10 ">L100.5902/24/16 04:44</th> </tr> <tr > <td>WBC - WHITE BLOOD COUNT</td> <td> 8.0 T/MM3</td> <td>4.5-11.0</td> </tr> <tr> <td>RED BLOOD COUNT</td> <td& gt;4.03 M/MM3</td> <td>4.00-5.20</td> </tr& gt; <tr> <td>HGB - HEMOGLOBIN</td> < td>10.8 GM/DL</td> <td>12-16</td> </tr& gt; <tr> <td>HCT - HEMATOCRIT</td> <td&gt ;36.3 %</td> <td>36-46</td> </tr&gt ; <tr> <td>MEAN CORPUSCULAR VOLUME</td> <td>90.1 UM3</td> <td>80-100</td> & lt;/tr> <tr> <td>MEAN CORPUSCULAR HGB</td>& lt;td>26.8 UUG</td> <td>26-34</td> </tr& gt; <tr> <td>MEAN CORPUSCULAR HGB CONC(MCHC</td& gt; <td>29.8 GM/DL</td> <td>31-37</td&gt ; </tr> <tr> <td>RDW STANDARD DEVIATION </td> <td>50.2 FL</td> <td>36.9-50.2& lt;/td> </tr> <tr> <td>PLT - PLATELET COUNT</td> <td>296 T/MM3</td> <td>130- 400</td> </tr> <tr> <td>MEAN PLATELET VOLUME</td> <td>9.8 UM3</td> <td>9.4 -12.4</td> </tr> <tr> <td> NEUTROPHILS% (MANUAL)</td> <td>58.0 %</ td> <td>33-66</td> </tr> <tr> <td>BAND NEUTROPHILS %</td> <td> 2.0 %</td> <td>0-6</td> </tr> <tr> <td>LYMPHOCYTES % (MANUAL)</td> <td>32.0 %</td> <td>23-45</td> </tr> <tr> <td>MONOCYTES % (MANUAL)< /td> <td>5.0 %</td> <td>0-9.0</td& gt; </tr> <tr> <td>EOSINOPHILS &#37 ; (MANUAL)</td> <td>3.0 %</td> < td>0-4</td> </tr> <tr> <td> BAND NEUTROPHILS #</td><td>0.2 T/MM3</td> <td /&gt ; </tr> <tr> <td>NEUTROPHILS # (MANUAL) </td> <td>4.6 T/MM3</td> <td>1.8-7.7& lt;/td> </tr> <tr> <td>LYMPHOCYTES # (MANUAL)</td> <td>2.6 T/MM3</td> <td&gt ;1-4.8</td> </tr> <tr> <td> MONOCYTES # (MANUAL)</td> <td>0.4 T/MM3</td> <td>0-0.8</td> </tr> <tr> < td>EOSINOPHILS # (MANUAL)</td> <td>0.2 T/MM3</td> <td>0-0.5</td> </tr> <tr> <td>RBC MORPHOLOGY</td><td>NORMAL </td> &lt ;td /> </tr> <tr> <th colspan="10& quot;>L200.002 - 02/24/16 04:44</th> </tr> <tr& gt; <td>ICTERUS</td> <td>< 2 </td& gt; <td>0-7</td> </tr> <tr> <td>HEMOLYSIS</td> <td>< 15 </td> & lt;td>0-25</td> </tr> <tr> <th colspan="10">L900.05 - 02/24/16 05:48</th> </tr& gt; <tr> <td>GLUCOMETER</td> <td& gt;117 mg/dL</td> <td>65-110</td> </tr> <tr> <th colspan="10">L900.0530 - 12:33</th> </tr> <tr><td>GLUCOMETER< /td> <td>109 mg/dL</td> <td>65-110</td > </tr> <tr> <th colspan="10" >L900.0530 - 02/24/16 17:10</th> </tr> <tr> <td>GLUCOMETER</td> <td>133 mg/dL</td&gt ; <td>65-110</td> </tr> <tr> <th colspan="10">L100.0050 - 02/25/16 04:12</th></tr&gt ; <tr> <td>WBC - WHITE BLOOD COUNT</td> <td>7.9 T/MM3</td> <td>4.5-11.0</td> </tr> <tr> <td>RED BLOOD COUNT</td> <td>3.96 M/MM3</td> <td>4.00-5.20</td> </tr> <tr> <td>HGB - HEMOGLOBIN</td&gt ; <td>10.8 GM/DL</td> <td>12-16</td> </tr> <tr> <td>HCT - HEMATOCRIT</td& gt; <td>35.0 %</td> <td>36-46</td > </tr> <tr> <td>MEAN CORPUSCULAR VOLUME</td> <td>88.4 UM3</td> <td>80- 100</td> </tr> <tr> <td>MEAN CORPUSCULAR HGB</td> <td>27.3 UUG</td> <td& gt;26-34</td> </tr> <tr> <td> MEAN CORPUSCULAR HGB CONC(MCHC</td> <td>30.9 GM/DL</td& gt; <td>31-37</td> </tr> <tr> <td>RDW STANDARD DEVIATION</td> <td>49.7 FL&lt ;/td> <td>36.9-50.2</td> </tr> < tr> <td>PLT - PLATELET COUNT</td> <td>297 T/MM3</td> <td>130-400</td> </tr> < tr> <td>MEAN PLATELET VOLUME</td> <td> 10.2 UM3</td> <td>9.4-12.4</td> </tr> <tr> <td>NEUTROPHILS % (AUTO)</td> <td>59.9 %</td> <td>33-66</td> </tr> <tr> <td>LYMPHOCYTES % ( AUTO)</td> <td>29.5 %</td> <td&gt ;23-45</td> </tr> <tr> <td> MONOCYTES % (AUTO)</td> <td>6.7 %</td&gt ; <td>0-9.0</td> </tr> <tr> <td>EOSINOPHILS % (AUTO)</td> <td>2.3 & amp;#37;</td> <td>0-4</td> </tr> <tr> <td>BASOPHILS % (AUTO)</td> &lt ;td>0.8 %</td> <td>0-2</td> </tr > <tr> <td>IMMATURE GRANULOCYTE % (AUTO)& lt;/td> <td>0.8 %</td> <td>0.0- 0.5</td> </tr> <tr> <td> NEUTROPHILS # (AUTO)</td> <td>4.7 T/MM3</td> <td>1.8-7.7</td> </tr> <tr> <td> LYMPHOCYTES # (AUTO)</td> <td>2.3 T/MM3</td> <td>1-4.8</td> </tr> <tr> < td>MONOCYTES # (AUTO)</td> <td>0.5 T/MM3</td> <td>0-0.8</td> </tr> <tr> < td>EOSINOPHILS # (AUTO)</td> <td>0.2 T/MM3</td> <td>0-0.5</td> </tr> <tr> <td>BASOPHILS # (AUTO)</td> <td>0.1 T/MM3</td&gt ; <td>0-0.2</td> </tr> <tr> <td>IMMATURE GRANULOCYTE # (AUTO)</td> <td>0.06 T/ MM3</td> <td>0.00-0.03</td> </tr> &lt ;tr> <th colspan="10">L200.0050 - 02/25/16 04:12< /th> </tr> <tr> <td>ICTERUS</td> <td>< 2 </td> <td>0-7</td> </tr> <tr> <td>HEMOLYSIS</td> & lt;td>22 </td> <td>0-25</td> </tr> <tr> <th colspan="10">L200.1999 - 02/25/16 04:12</th> </tr> <tr> <td> MAGNESIUM</td> <td>2.1 MG/DL</td> <td> 1.6-2.3</td> </tr> <tr> <th colspan=" 10">L900.05 - 02/25/16 05:50</th> </tr> < tr> <td>GLUCOMETER</td> <td>112 mg/dL< /td> <td>65-110</td> </tr> <tr&gt ; <th colspan="10">L900.0530 - 02/25/16 11:08</th&gt ; </tr> <tr> <td>GLUCOMETER</td> <td>93 mg/dL</td> <td>65-110</td> & lt;/tr> <tr> <th colspan="10"> L200.0148 - 02/25/16 12:16</th> </tr> <tr> <td>HEMOLYSIS</td> <td>< 15 </td> <td>0-25</td> </tr> <tr> <th colspan="10">M153.0000 - 02/27/16 11:25</th> </tr> <tr> <td>URINE CULTURE.</td> <td> CFU/ml</td> <td /> </tr> <tr> <th colspan="10">L200.0050 - 02/27/16 11:25& lt;/th> </tr> <tr> <td>ICTERUS</ td> <td>< 2 </td> <td>0-7</td& gt; </tr> <tr> <td>HEMOLYSIS</td&gt ; <td>< 15 </td> <td>0-25</td> </tr> <tr> <th colspan="10"> L100.0050 - 03/11/16 04:40</th> </tr> <tr> < td>WBC - WHITE BLOOD COUNT</td> <td>5.8 T/MM3</td&gt ; <td>4.5-11.0</td> </tr> <tr> <td>RED BLOOD COUNT</td> <td>4.01 M/MM3</ td> <td>4.00-5.20</td> </tr> <tr& gt; <td>HGB - HEMOGLOBIN</td> <td>11.1 GM/DL </td> <td>12-16</td> </tr> <tr > <td>HCT - HEMATOCRIT</td> <td>35.2 &amp ;#37;</td> <td>36-46</td> </tr> & lt;tr> <td>MEAN CORPUSCULAR VOLUME</td> <td& gt;87.8 UM3</td> <td>80-100</td> </tr> & lt;tr> <td>MEAN CORPUSCULAR HGB</td> <td> 27.7 UUG</td> <td>26-34</td> </tr> <tr> <td>MEAN CORPUSCULAR HGB CONC(MCHC</td> <td>31.5 GM/DL</td> <td>31-37</td> </tr> <tr> <td>RDW STANDARD DEVIATION</td& gt; <td>51.1 FL</td> <td>36.9-50.2</td> </tr> <tr> <td>PLT - PLATELET COUNT</td& gt; <td>241 T/MM3</td> <td>130-400</td&gt ; </tr> <tr> <td>MEAN PLATELET VOLUME& lt;/td> <td>11.1 UM3</td> <td>9.4-12.4&lt ;/td> </tr> <tr> <td>NEUTROPHILS & amp;#37; (AUTO)</td> <td>59.7 %</td> <td>33-66</td> </tr> <tr> <td&gt ;LYMPHOCYTES % (AUTO)</td> <td>27.8 %</ td> <td>23-45</td> </tr> <tr> <td>MONOCYTES % (AUTO)</td> <td>8.9 % </td> <td>0-9.0</td> </tr> <tr> <td>EOSINOPHILS % (AUTO)</td> <td>3.1 & amp;#37;</td> <td>0-4</td> </tr> & lt;tr> <td>BASOPHILS % (AUTO)</td> <td> 0.5 %</td> <td>0-2</td> </tr> <tr> <td>IMMATURE GRANULOCYTE % (AUTO)</td > <td>0.0 %</td> <td>0.0-0.5</ td> </tr> <tr> <td>NEUTROPHILS # (AUTO)</ td> <td>3.5 T/MM3</td> <td>1.8-7.7</td > </tr> <tr> <td>LYMPHOCYTES # (AUTO )</td> <td>1.6 T/MM3</td> <td>1-4.8&lt ;/td> </tr> <tr> <td>MONOCYTES # ( AUTO)</td> <td>0.5 T/MM3</td> <td>0- 0.8</td> </tr> <tr> <td> EOSINOPHILS # (AUTO)</td> <td>0.2 T/MM3</td> <td>0-0.5</td> </tr> <tr> < td>BASOPHILS # (AUTO)</td> <td>0.0 T/MM3</td> <td>0-0.2</td> </tr> <tr> & lt;td>IMMATURE GRANULOCYTE # (AUTO)</td> <td>0.00 T/MM3& lt;/td> <td>0.00-0.03</td> </tr> &lt ;tr> <th colspan="10">L200.0050 - 03/11/16 04:40< /th> </tr> <tr> <td>ICTERUS</td> <td>< 2 </td> <td>0-7</td> </tr> <tr> <td>HEMOLYSIS</td> & lt;td>< 15 </td> <td>0-25</td> </ tr> <tr> <th colspan="10">L200.1950 03/11 04:40</th> </tr> <tr> <td>LIPASE&lt ;/td> <td>308 U/L</td> <td>23-300</td& gt; </tr> <tr> <th colspan="10"& gt;M110.019 - 03/11/16 05:17</th> </tr> <tr> <td>ANTI-D</td> <td>NO GROWTH AFTER 5 DAYS & lt;/td> <td /> </tr> <tr> & lt;th colspan="10">L200.206 - 03/11/16 05:17</th> &lt ;/tr> <tr> <td>LACTATE - LACTIC ACID, VENOUS</ td> <td>1.1 MMOL/L</td> <td>0.6-2.2</td > </tr> <tr> <th colspan="10"> L600.99 - 03/11/16 06:33</th> </tr> <tr> &lt ;td>SPECIMEN TYPE, URINE</td> <td>CLEANCATCH-MIDSTREAM & lt;/td> <td /> </tr> <tr><td> COLOR,URINE</td> <td>YELLOW </td> <td> YELLOW</td> </tr> <tr> <td> TURBIDITY, URINE</td> <td>CLEAR </td> <td >CLEAR</td> </tr> <tr> <td> SPECIFIC GRAVITY,URINE</td> <td>1.025 </td> <td>1.015-1.025</td> </tr> <tr> & lt;td>PH, URINE - DIPSTICK</td> <td>6.0 </td> <td>5.0-8.0</td> </tr> <tr> <td>LEUKOCYTE ESTERASE ,URINE</td> <td>1+ </td& gt; <td>NEGATIVE</td> </tr> <tr> <td>NITRITE,URINE</td> <td>NEGATIVE </td > <td>NEGATIVE</td> </tr> <tr&gt ; <td>PROTEIN,URINE - DIPSTICK</td> <td> NEGATIVE </td> <td>NEGATIVE</td> </tr> <tr> <td>GLUCOSE, URINE - DIPSTICK</td> <td>NEGATIVE </td> <td>NEGATIVE</td> </tr> <tr> <td>KETONES,URINE - DIPSTICK</td > <td>NEGATIVE </td> <td>NEGATIVE</td& gt; </tr> <tr> <td>UROBILINOGEN,URINE& lt;/td> <td>0.2 EU/DL</td> <td>NORMAL< /td> </tr> <tr> <td>BILIRUBIN,URINE - DIPSTICK</td> <td>NEGATIVE </td> <td&gt ;NEGATIVE</td> </tr> <tr> <td> BLOOD, URINE</td> <td>TRACE-INTACT </td> &lt ;td>NEGATIVE</td> </tr> <tr> <th colspan="10">L600.0175 - 03/11/16 06:33</th> </tr& gt; <tr> <td>SPECIMEN TYPE, URINE</td> <td>CLEANCATCH-MIDSTREAM </td> <td /> </ tr> <tr> <td>COLOR,URINE</td> < td>YELLOW </td> <td>YELLOW</td> </tr&gt ; <tr> <td>TURBIDITY, URINE</td> < td>CLEAR </td> <td>CLEAR</td> </tr> <tr> <td>SPECIFIC GRAVITY,URINE</td> & lt;td>1.025 </td> <td>1.015-1.025</td> < /tr> <tr> <td>PH, URINE - DIPSTICK</td> <td>6.0 </td> <td>5.0-8.0</td> & lt;/tr> <tr> <td>LEUKOCYTE ESTERASE,URINE</td& gt; <td>1+ </td> <td>NEGATIVE</td> </tr> <tr> <td>NITRITE,URINE</td> <td>NEGATIVE </td> <td>NEGATIVE</td> </tr> <tr> <td>PROTEIN,URINE - DIPSTICK </td> <td>NEGATIVE </td> <td>NEGATIVE& lt;/td> </tr> <tr> <td>GLUCOSE, URINE - DIPSTICK</td> <td>NEGATIVE </td> &lt ;td>NEGATIVE</td> </tr> <tr> <td& gt;KETONES,URINE - DIPSTICK</td> <td>NEGATIVE </td> <td>NEGATIVE</td> </tr> <tr> & lt;td>UROBILINOGEN,URINE</td> <td>0.2 EU/DL</td> <td>NORMAL</td> </tr> <tr> <td>BILIRUBIN,URINE - DIPSTICK</td> <td>NEGATIVE </td> <td>NEGATIVE</td> </tr> &lt ;tr> <td>BLOOD, URINE</td> <td>TRACE- INTACT </td> <td>NEGATIVE</td> </tr> <tr> <td>WBC,URINE</td> <td>3-5 / HPF</td> <td>0-5</td> </tr> <tr > <td>RBC,URINE</td> <td>1-3 /HPF</td& gt; <td>0-3</td> </tr> <tr> <td>SQUAMOUS EPITHELIAL CELL,UR</td> <td>5-10 & lt;/td> <td /> </tr> <tr> & lt;td>BACTERIA,URINE</td> <td>TRACE </td> <td>NEGATIVE</td> </tr> <tr> <td> CULTURE SET UP,URINE</td> <td>CULT NOT INDICATED </td&gt ; <td /> </tr> <tr> <th colspan=& quot;10">M153.0000 - 03/11/16 07:13</th> </tr> <tr> <td>URINE CULTURE.</td> <td> CFU/ml</td> <td /> </tr> <tr> <th colspan="10">L600.0175 - 03/25/16 11:45</th> </tr> <tr> <td>SPECIMEN TYPE, URINE</ td> <td>VOIDED-NOT CC-MIDSTR </td> <td /&gt ; </tr> <tr> <td>COLOR,URINE</td&gt ; <td>YELLOW </td> <td>YELLOW</td> </tr> <tr> <td>TURBIDITY, URINE</td&gt ; <td>SL CLOUDY </td> <td>CLEAR</td> </tr> <tr> <td>SPECIFIC GRAVITY,URINE</ td> <td>1.015 </td> <td>1.015-1.025</ td> </tr> <tr> <td>PH, URINE - DIPSTICK</td> <td>6.0 </td> <td>5.0- 8.0</td> </tr> <tr> <td> LEUKOCYTE ESTERASE ,URINE</td> <td>2+ </td> <td>NEGATIVE</td> </tr> <tr> < td>NITRITE,URINE</td> <td>POSITIVE </td> <td>NEGATIVE</td> </tr> <tr> < td>PROTEIN,URINE - DIPSTICK</td> <td>NEGATIVE </td&gt ; <td>NEGATIVE</td> </tr> <tr> <td>GLUCOSE, URINE - DIPSTICK</td> <td>NEGATIVE </td> <td>NEGATIVE</td> </tr> &lt ;tr> <td>KETONES,URINE - DIPSTICK</td> <td& gt;NEGATIVE </td> <td>NEGATIVE</td> </tr&gt ; <tr> <td>UROBILINOGEN,URINE</td> & lt;td>0.2 EU/DL</td> <td>NORMAL</td> </ tr> <tr> <td>BILIRUBIN,URINE - DIPSTICK</td> <td>NEGATIVE </td> <td>NEGATIVE</td> </tr> <tr> <td>BLOOD, URINE</td&gt ; <td>3+ </td> <td>NEGATIVE</td> </tr> <tr> <th colspan="10"> L600.0175 - 03/25/16 11:45</th> </tr> <tr> <td>SPECIMEN TYPE, URINE</td> <td>VOIDED-NOT CC- MIDSTR </td> <td /> </tr> <tr> <td>COLOR,URINE</td> <td>YELLOW </td> & lt;td>YELLOW</td> </tr> <tr> <td& gt;TURBIDITY, URINE</td> <td>SL CLOUDY </td> <td>CLEAR</td> </tr> <tr> < td>SPECIFIC GRAVITY,URINE</td> <td>1.015 </td> <td>1.015-1.025</td> </tr> <tr> <td>PH, URINE - DIPSTICK</td> <td>6.0 </td> <td>5.0-8.0</td> </tr> <tr> <td>LEUKOCYTE ESTERASE ,URINE</td> <td>2+ </td& gt; <td>NEGATIVE</td> </tr> <tr> <td>NITRITE,URINE</td> <td>POSITIVE </td > <td>NEGATIVE</td> </tr> <tr&gt ; <td>PROTEIN,URINE - DIPSTICK</td> <td> NEGATIVE </td> <td>NEGATIVE</td> </tr> <tr> <td>GLUCOSE, URINE - DIPSTICK</td> <td>NEGATIVE </td> <td>NEGATIVE</td> </tr> <tr> <td>KETONES,URINE - DIPSTICK</td > <td>NEGATIVE </td> <td>NEGATIVE</td& gt; </tr> <tr> <td>UROBILINOGEN,URINE& lt;/td> <td>0.2 EU/DL</td> <td>NORMAL< /td> </tr> <tr> <td>BILIRUBIN,URINE - DIPSTICK</td> <td>NEGATIVE </td> <td&gt ;NEGATIVE</td> </tr> <tr> <td> BLOOD, URINE</td> <td>3+ </td> <td>NEGATIVE& lt;/td> </tr> <tr> <td>WBC,URINE< /td> <td>TNTC /HPF</td> <td>0-5</td&gt ; </tr> <tr> <td>RBC,URINE</td> <td>10-20 /HPF</td> <td>0-3</td> </tr> <tr> <td>BACTERIA,URINE</td> <td>2+ </td> <td>NEGATIVE</td> & lt;/tr> <tr> <td>CULTURE SET UP,URINE</td> <td>CULT REFLEXED &SETUP </td> <td /& gt; </tr> <tr> <th colspan="10"> M153.0000 - 03/25/16 12:49</th> </tr> <tr> <td>URINE CULTURE.</td> <td> CFU/ml</td>& lt;td /> </tr> <tr> <th colspan=" 10">L100.0050 - 03/26/16 19:33</th> </tr> < tr> <td>WBC - WHITE BLOOD COUNT</td> <td> 5.0 T/MM3</td> <td>4.5-11.0</td> </tr> <tr> <td>RED BLOOD COUNT</td> <td> 5.36 M/MM3</td> <td>4.00-5.20</td> </tr&gt ; <tr> <td>HGB - HEMOGLOBIN</td> <td&gt ;14.8 GM/DL</td> <td>12-16</td> </tr> <tr> <td>HCT - HEMATOCRIT</td> <td& gt;46.4 %</td> <td>36-46</td> </tr& gt; <tr> <td>MEAN CORPUSCULAR VOLUME</td> <td>86.6 UM3</td> <td>80-100</td> </tr> <tr> <td>MEAN CORPUSCULAR HGB</td&gt ; <td>27.6 UUG</td> <td>26-34</td> </tr> <tr> <td>MEAN CORPUSCULAR HGB CONC( MCHC</td> <td>31.9 GM/DL</td> <td>31- 37</td> </tr> <tr> <td>RDW STANDARD DEVIATION</td> <td>50.3 FL</td> &lt ;td>36.9-50.2</td> </tr> <tr> <td >PLT - PLATELET COUNT</td> <td>217 T/MM3</td> <td>130-400</td> </tr> <tr> <td>MEAN PLATELET VOLUME</td> <td>10.2 UM3</td&gt ; <td>9.4-12.4</td> </tr> <tr> <td>NEUTROPHILS % (AUTO)</td> <td>75.2 & amp;#37;</td> <td>33-66</td> </tr> <tr> <td>LYMPHOCYTES % (AUTO)</td> <td>15.6 %</td> <td>23-45</td> </tr > <tr> <td>MONOCYTES % (AUTO)</td> <td>6.6 %</td> <td>0-9.0</td&gt ; </tr> <tr> <td>EOSINOPHILS % ( AUTO)</td> <td>2.0 %</td> <td>0-4&lt ;/td> </tr> <tr> <td>BASOPHILS & #37; (AUTO)</td> <td>0.4 %</td> < td>0-2</td> </tr> <tr> <td> IMMATURE GRANULOCYTE % (AUTO)</td> <td>0.2 &#37 ;</td> <td>0.0-0.5</td> </tr> &lt ;tr> <td>NEUTROPHILS # (AUTO)</td> <td> 3.8 T/MM3</td> <td>1.8-7.7</td> </tr> <tr> <td>LYMPHOCYTES # (AUTO)</td> &lt ;td>0.8 T/MM3</td> <td>1-4.8</td> </tr& gt; <tr><td>MONOCYTES # (AUTO)</td> <td> 0.3 T/MM3</td> <td>0-0.8</td> </tr> <tr> <td>EOSINOPHILS # (AUTO)</td> < td>0.1 T/MM3</td> <td>0-0.5</td> </tr&gt ; <tr> <td>BASOPHILS # (AUTO)</td> <td& gt;0.0 T/MM3</td> <td>0-0.2</td> </tr> <tr> <td>IMMATURE GRANULOCYTE # (AUTO)</td> <td>0.01 T/MM3</td> <td>0.00-0.03</td> </tr> <tr> <th colspan="10"> L200.0050 - 03/26/16 20:26</th> </tr> <tr> <td>ICTERUS</td> <td>< 2 </td> <td>0-7</td> </tr> <tr> <td >HEMOLYSIS</td> <td>< 15 </td> <td >0-25</td> </tr> <tr> <th colspan ="10">L200.1848 - 03/26/16 20:26</th> </tr> <tr> <td>TROPONIN I</td> <td>& lt; 0.012 ng/ml</td> <td>0-0.12</td> </tr& gt; <tr> <th colspan="10">L200.1950 - 05/30 20:26</th> </tr> <tr> <td> LIPASE</td> <td>208 U/L</td> <td>23- 300</td> </tr> <tr> <th colspan="10& quot;>L100.0050 - 04/16/16 11:42</th> </tr> <tr& gt; <td>WBC - WHITE BLOOD COUNT</td> <td> 6.2 T/MM3</td> <td>4.5-11.0</td> </tr> <tr> <td>RED BLOOD COUNT</td> <td> 3.92 M/MM3</td> <td>4.00-5.20</td> </tr&gt ; <tr> <td>HGB - HEMOGLOBIN</td> < td>10.8 GM/DL</td> <td>12-16</td> </tr& gt; <tr> <td>HCT - HEMATOCRIT</td> & lt;td>34.4 %</td> <td>36-46</td> & lt;/tr> <tr> <td>MEAN CORPUSCULAR VOLUME</td& gt; <td>87.8 UM3</td> <td>80-100</td> </tr> <tr> <td>MEAN CORPUSCULAR HGB&lt ;/td> <td>27.6 UUG</td> <td>26-34</td&gt ; </tr> <tr> <td>MEAN CORPUSCULAR HGB CONC(MCHC</td> <td>31.4 GM/DL</td> <td&gt ;31-37</td> </tr> <tr> <td>RDW STANDARD DEVIATION</td> <td>49.3 FL</td> &lt ;td>36.9-50.2</td> </tr> <tr> <td >PLT - PLATELET COUNT</td> <td>287 T/MM3</td> <td>130-400</td> </tr> <tr> <td& gt;MEAN PLATELET VOLUME</td> <td>10.2 UM3</td> <td>9.4-12.4</td> </tr> <tr> <td>NEUTROPHILS % (AUTO)</td> <td>69.7 &# 37;</td> <td>33-66</td> </tr> &lt ;tr> <td>LYMPHOCYTES % (AUTO)</td> < td>19.8 %</td> <td>23-45</td> </ tr> <tr> <td>MONOCYTES % (AUTO)</td&gt ; <td>6.9 %</td> <td>0-9.0</td&gt ; </tr> <tr> <td>EOSINOPHILS % ( AUTO)</td> <td>3.1 %</td> <td> 0-4</td> </tr> <tr> <td> BASOPHILS % (AUTO)</td> <td>0.3 %</td&gt ; <td>0-2</td> </tr> <tr> <td>IMMATURE GRANULOCYTE % (AUTO)</td> <td&gt ;0.2 %</td> <td>0.0-0.5</td> </tr& gt; <tr> <td>NEUTROPHILS # (AUTO)</td> <td>4.3 T/MM3</td> <td>1.8-7.7</td> & lt;/tr> <tr> <td>LYMPHOCYTES # (AUTO)</td> <td>1.2 T/MM3</td> <td>1-4.8</td> </ tr> <tr> <td>MONOCYTES # (AUTO)</td> <td>0.4 T/MM3</td> <td>0-0.8</td> & lt;/tr> <tr> <td>EOSINOPHILS # (AUTO)</td> <td>0.2 T/MM3</td> <td>0-0.5</td> </tr> <tr> <td>BASOPHILS # (AUTO)</td> <td>0.0 T/MM3</td> <td>0-0.2</td> </tr> <tr> <td>IMMATURE GRANULOCYTE # ( AUTO)</td> <td>0.01 T/MM3</td> <td>0.00- 0.03</td> </tr> <tr> <th colspan="10 ">L200.0050 - 04/16/16 11:42</th></tr> <tr> <td>ICTERUS</td> <td>< 2 </td> <td>0-7</td> </tr> <tr> & lt;td>HEMOLYSIS</td> <td>< 15 </td> <td>0-25</td> </tr> <tr> <th colspan="10">L600.0100 - 04/16/16 12:16</th> </tr& gt; <tr> <td>SPECIMEN TYPE, URINE</td> <td>CLEANCATCH-MIDSTREAM </td> <td /> </tr& gt; <tr> <td>COLOR,URINE</td> <td& gt;YELLOW </td> <td>YELLOW</td> </tr> <tr> <td>TURBIDITY, URINE</td> <td& gt;CLEAR </td> <td>CLEAR</td> </tr> <tr> <td>SPECIFIC GRAVITY,URINE</td> < td><=1.005 </td> <td>1.015-1.025</td> </tr> <tr> <td>PH, URINE - DIPSTICK</td> <td>6.5 </td> <td>5.0-8.0</td> &lt ;/tr> <tr> <td>LEUKOCYTE ESTERASE ,URINE</td& gt; <td>NEGATIVE </td> <td>NEGATIVE</td& gt; </tr> <tr> <td>NITRITE,URINE</td > <td>NEGATIVE </td> <td>NEGATIVE</td& gt; </tr> <tr> <td>PROTEIN,URINE - DIPSTICK</td> <td>NEGATIVE </td> <td> NEGATIVE</td> </tr> <tr> <td> GLUCOSE, URINE - DIPSTICK</td> <td>NEGATIVE </td> <td>NEGATIVE</td> </tr> <tr> <td>KETONES,URINE - DIPSTICK</td> <td>NEGATIVE & lt;/td> <td>NEGATIVE</td> </tr> < tr> <td>UROBILINOGEN,URINE</td> <td>0.2 EU/DL</td> <td>NORMAL</td> </tr> <tr> <td>BILIRUBIN,URINE - DIPSTICK</td> &lt ;td>NEGATIVE </td> <td>NEGATIVE</td> </ tr> <tr> <td>BLOOD, URINE</td> &lt ;td>TRACE-INTACT </td> <td>NEGATIVE</td> & lt;/tr> <tr> <td>URINE MICRO</td> <td>MICROSCOPIC NOT IND. </td> <td /> </tr&gt ; <tr> <th colspan="10">L100.0050 - 12:35</th> </tr> <tr> <td>WBC - WHITE BLOOD COUNT</td> <td>8.1 T/MM3</td> <td>4.5-11.0</td> </tr> <tr> < td>RED BLOOD COUNT</td> <td>4.23 M/MM3</td> <td>4.00-5.20</td> </tr> <tr> <td>HGB - HEMOGLOBIN</td> <td>11.6 GM/DL</td&gt ; <td>12-16</td> </tr> <tr> <td>HCT - HEMATOCRIT</td> <td>36.9 %< /td> <td>36-46</td> </tr> <tr&gt ; <td>MEAN CORPUSCULAR VOLUME</td> <td>87.2 UM3</td> <td>80-100</td> </tr> <tr > <td>MEAN CORPUSCULAR HGB</td> <td>27.4 UUG</td> <td>26-34</td> </tr> <tr&gt ; <td>MEAN CORPUSCULAR HGB CONC(MCHC</td> <td>31.4 GM /DL</td> <td>31-37</td> </tr> &lt ;tr> <td>RDW STANDARD DEVIATION</td> <td> 47.9 FL</td> <td>36.9-50.2</td> </tr> & lt;tr> <td>PLT - PLATELET COUNT</td> <td> 305 T/MM3</td> <td>130-400</td> </tr> <tr> <td>MEAN PLATELET VOLUME</td> < td>10.4 UM3</td> <td>9.4-12.4</td> </tr& gt; <tr> <td>NEUTROPHILS % (AUTO)</td> <td>69.2 %</td> <td>33-66</td&gt ; </tr> <tr> <td>LYMPHOCYTES % (AUTO)</td> <td>20.3 %</td> <td& gt;23-45</td> </tr> <tr> <td> MONOCYTES % (AUTO)</td> <td>7.4 %</td&gt ; <td>0-9.0</td> </tr> <tr> <td>EOSINOPHILS % (AUTO)</td> <td>2.7 & amp;#37;</td> <td>0-4</td> </tr> <tr> <td>BASOPHILS % (AUTO)</td> <td&gt ;0.2 %</td> <td>0-2</td> </tr> <tr> <td>IMMATURE GRANULOCYTE % (AUTO)</td> <td>0.2 %</td> <td>0.0-0.5</td&gt ; </tr> <tr> <td>NEUTROPHILS # (AUTO)& lt;/td> <td>5.6 T/MM3</td> <td>1.8-7.7&lt ;/td> </tr> <tr> <td>LYMPHOCYTES # (AUTO )</td> <td>1.6 T/MM3</td> <td>1-4.8&lt ;/td> </tr> <tr> <td>MONOCYTES # ( AUTO)</td> <td>0.6 T/MM3</td> <td>0- 0.8</td> </tr> <tr> <td> EOSINOPHILS # (AUTO)</td> <td>0.2 T/MM3</td> <td>0-0.5</td> </tr> <tr> <td >BASOPHILS # (AUTO)</td> <td>0.0 T/MM3</td> <td>0-0.2</td> </tr> <tr> &lt ;td>IMMATURE GRANULOCYTE# (AUTO)</td> <td>0.02 T/MM3< /td> <td>0.00-0.03</td> </tr> <tr& gt; <th colspan="10">L200.0050 - 05/13/16 12:35</th& gt; </tr> <tr> <td>ICTERUS</td> <td>< 2 </td> <td>0-7</td> </tr> <tr> <td>HEMOLYSIS</td> <td>< 15 </td> <td>0-25</td> </tr> <tr> <td>TURBIDITY</td> <td& gt;< 20 </td> <td>0-20</td> </tr&gt ; <tr> <td>SODIUM</td> <td>143 MEQ/L</td> <td>134-144</td> </tr> <tr> <td>POTASSIUM</td> <td>4.2 MEQ/L& lt;/td> <td>3.6-5</td> </tr><tr> <td>CHLORIDE</td> <td>102 MEQ/L</td> <td>98-107</td> </tr> <tr> <td>CO2 - CARBON DIOXIDE</td> <td>29 MEQ/L</td&gt ; <td>22-30</td> </tr> <tr> <td>ANION GAP</td> <td>12 MEQ/L</td> <td>5-15</td> </tr> <tr> &lt ;td>BLOOD UREA NITROGEN</td> <td>27.0 MG/DL</td> <td>7-17</td> </tr> <tr> & lt;td>CREATININE</td> <td>1.0 MG/DL</td> <td>0.7-1.2</td> </tr> <tr> < td>BUN/CREATININE RATIO</td> <td>27 RATIO</td> <td>6-26</td> </tr> <tr> & lt;td>GLOMERULAR FILTRATION RATE</td> <td>55 </td&gt ; <td /> </tr> <tr> <td> GLUCOSE</td> <td>108 MG/DL</td> <td>65 -110</td> </tr> <tr> <td> OSMOLALITY,CALCULATED</td> <td>281 MOSM/KG</td> <td>261-280</td> </tr> <tr> < td>CALCIUM</td> <td>9.6 MG/DL</td> <td>8.4- 10.2</td> </tr> <tr> <th colspan=& quot;10">L200.1848 - 05/13/16 12:35</th> </tr> <tr> <td>TROPONIN I</td> <td>&lt ; 0.012 ng/ml</td> <td>0-0.12</td> </tr&gt ; <tr> <th colspan="10">L100.0050- 21:09</th> </tr> <tr> <td>WBC - WHITE BLOOD COUNT</td> <td>9.0 T/MM3</td> <td>4.5-11.0</td> </tr> <tr> <td&gt ;RED BLOOD COUNT</td> <td>3.88 M/MM3</td> & lt;td>4.00-5.20</td> </tr> <tr> <td> HGB - HEMOGLOBIN</td> <td>10.7 GM/DL</td> & lt;td>12-16</td> </tr> <tr> <td& gt;HCT - HEMATOCRIT</td> <td>33.6 %</td> <td>36-46</td> </tr> <tr> & lt;td>MEAN CORPUSCULAR VOLUME</td> <td>86.6 UM3</td& gt; <td>80-100</td> </tr> <tr> <td>MEAN CORPUSCULAR HGB</td> <td>27.6 UUG&lt ;/td> <td>26-34</td> </tr> <tr&gt ; <td>MEAN CORPUSCULAR HGB CONC(MCHC</td> <td& gt;31.8 GM/DL</td> <td>31-37</td> </tr> <tr> <td>RDW STANDARD DEVIATION</td> <td>47.9 FL</td> <td>36.9-50.2</td> < /tr> <tr> <td>PLT - PLATELET COUNT</td> <td>304 T/MM3</td> <td>130-400</td> </tr> <tr> <td>MEAN PLATELET VOLUME</td > <td>9.8 UM3</td> <td>9.4-12.4</td> </tr> <tr> <td>NEUTROPHILS % (AUTO)& lt;/td> <td>77.1 %</td> <td>33-66 </td> </tr> <tr> <td>LYMPHOCYTES % (AUTO)</td> <td>15.9 %</td> <td>23-45</td> </tr> <tr> < td>MONOCYTES % (AUTO)</td> <td>4.9 %< /td> <td>0-9.0</td> </tr> <tr> <td>EOSINOPHILS % (AUTO)</td> <td>1.7 &# 37;</td> <td>0-4</td> </tr> < tr> <td>BASOPHILS % (AUTO)</td> <td& gt;0.2 %</td> <td>0-2</td> </tr&gt ; <tr> <td>IMMATURE GRANULOCYTE % (AUTO)< /td> <td>0.2 %</td> <td>0.0-0.5& lt;/td> </tr> <tr> <td>NEUTROPHILS # (AUTO)</td> <td>6.9 T/MM3</td> <td> 1.8-7.7</td> </tr> <tr> <td> LYMPHOCYTES # (AUTO)</td> <td>1.4T/MM3</td> <td>1-4.8</td> </tr> <tr> <td& gt;MONOCYTES # (AUTO)</td> <td>0.4 T/MM3</td> <td>0-0.8</td> </tr> <tr> < td>EOSINOPHILS # (AUTO)</td> <td>0.2 T/MM3</td> <td>0-0.5</td> </tr> <tr> <td& gt;BASOPHILS # (AUTO)</td> <td>0.0 T/MM3</td> <td>0-0.2</td> </tr> <tr> < td>IMMATUREGRANULOCYTE # (AUTO)</td> <td>0.02 T/MM3</ td> <td>0.00-0.03</td> </tr> <tr& gt; <th colspan="10">L200.0020- 10/04/16 21:09</th& gt; </tr> <tr> <td>ICTERUS</td> <td>< 2 </td> <td>0-7</td> </tr> <tr> <td>HEMOLYSIS</td> & lt;td>< 15 </td> <td>0-25</td> </tr&gt ; <tr> <td>TURBIDITY</td> <td> 21 </td> <td>0-20</td> </tr> <tr> <td>SODIUM</td> <td>147 MEQ/L</td> <td>134-144</td> </tr> <tr> <td>POTASSIUM</td> <td>4.5 MEQ/L</td> <td>3.6-5</td> </tr> <tr> <td& gt;CHLORIDE</td> <td>106 MEQ/L</td> <td>98-107& lt;/td> </tr> <tr> <td>CO2 - CARBON DIOXIDE</td> <td>28 MEQ/L</td> <td>22- 30</td> </tr> <tr> <td>ANION GAP& lt;/td> <td>13 MEQ/L</td> <td>5-15</td > </tr> <tr> <td>BLOOD UREA NITROGEN </td> <td>26.0 MG/DL</td> <td>7-17< /td> </tr> <tr> <td>CREATININE</ td> <td>0.8 MG/DL</td> <td>0.7-1.2</td > </tr> <tr> <td>BUN/CREATININE RATIO</td& gt; <td>33 RATIO</td> <td>6-26</td> </tr> <tr> <td>GLOMERULAR FILTRATION RATE</td> <td>71 </td> <td /> & lt;/tr> <tr> <td>GLUCOSE</td> < td>157 MG/DL</td> <td>65-110</td> </tr& gt; <tr> <td>OSMOLALITY,CALCULATED</td> <td>290 MOSM/KG</td> <td>261-280</td> </tr> <tr> <td>CALCIUM</td> <td>9.7 MG/DL</td> <td>8.4-10.2</td> </tr& gt; <tr> <td>BILIRUBIN,TOTAL</td> &lt ;td>0.50 MG/DL</td> <td>0.20-1.30</td> </tr& gt; <tr> <td>ALKALINE PHOSPHATASE</td> <td>87 U/L</td> <td>38-126</td> </ tr> <tr> <td>TOTAL PROTEIN</td> <td&gt ;8.0 G/DL</td> <td>6.3-8.2</td> </tr> <tr> <td>ALBUMIN</td> <td>4.0 G/ DL</td> <td>3.5-5.0</td> </tr> & lt;tr> <td>GLOBULIN</td> <td>4.0 G/DL< /td> <td>2.4-3.6</td> </tr> <tr& gt; <td>ALBUMIN/GLOBULIN RATIO</td> <td>1.0 RATIO</td> <td>1.1-2.2</td> </tr> <tr> <td>AST (SGOT)</td> <td>22 U/L& lt;/td> <td>14-36</td> </tr> <tr> <td>ALT (SGPT)</td> <td>28 U/L</td> <td>9-52</td> </tr> <tr> & lt;th colspan="10">L600.0175 - 10/04/16 22:40</th> </tr& gt; <tr> <td>SPECIMEN TYPE, URINE</td> <td>STRAIGHT CATH </td> <td /> </tr> <tr> <td>COLOR,URINE</td> <td> YELLOW </td> <td>YELLOW</td> </tr> <tr> <td>TURBIDITY, URINE</td> <td> SL CLOUDY </td> <td>CLEAR</td> </tr> <tr> <td>SPECIFIC GRAVITY,URINE</td> < td>1.010 </td> <td>1.015-1.025</td> </tr > <tr> <td>PH, URINE - DIPSTICK</td> <td>6.0 </td> <td>5.0-8.0</td> </ tr> <tr> <td>LEUKOCYTE ESTERASE ,URINE</td&gt ; <td>NEGATIVE </td> <td>NEGATIVE</td&gt ; </tr> <tr> <td>NITRITE,URINE</td> <td>POSITIVE </td> <td>NEGATIVE</td> </tr> <tr> <td>PROTEIN,URINE - DIPSTICK& lt;/td> <td>NEGATIVE </td> <td>NEGATIVE& lt;/td> </tr> <tr> <td>GLUCOSE, URINE - DIPSTICK</td> <td>NEGATIVE </td> &lt ;td>NEGATIVE</td> </tr> <tr> <td> KETONES,URINE - DIPSTICK</td> <td>NEGATIVE </td> <td>NEGATIVE</td> </tr> <tr> <td>UROBILINOGEN,URINE</td> <td>0.2 EU/DL</td& gt; <td>NORMAL</td> </tr> <tr> <td>BILIRUBIN,URINE - DIPSTICK</td> <td> NEGATIVE </td> <td>NEGATIVE</td> </tr> <tr> <td>BLOOD, URINE</td> <td>TRACE- INTACT </td> <td>NEGATIVE</td> </tr> <tr> <td>WBC,URINE</td> <td>10-20 /HPF </td> <td>0-5</td> </tr> <tr& gt; <td>RBC,URINE</td> <td>0-1 /HPF</td& gt; <td>0-3</td> </tr> <tr> <td>BACTERIA,URINE</td> <td>3+ </td> <td>NEGATIVE</td> </tr> <tr> <td>CULTURE SET UP,URINE</td> <td>CULT REFLEXED & amp;SETUP </td> <td /> </tr> <tr&gt ; <th colspan="10">M153.0000 - 10/04/16 22:56</th&gt ; </tr> <tr> <td>URINE CULTURE.</td> <td> CFU/ml</td> <td /> </tr> <tr> <th colspan="10">L900.0530 - 10/05/16 02: 33</th> </tr> <tr> <td>GLUCOMETER </td><td>117 mg/dL</td> <td>65-110</td> </tr> <tr> <th colspan="10"> L100.0050 - 10/05/16 08:09</th> </tr> <tr> <td>WBC - WHITE BLOOD COUNT</td> <td>7.9 T/MM3& lt;/td> <td>4.5-11.0</td> </tr> < tr> <td>RED BLOOD COUNT</td> <td>3.64 M/ MM3</td> <td>4.00-5.20</td> </tr> <tr> <td>HGB - HEMOGLOBIN</td> <td>9.9 GM/DL</td> <td>12-16</td> </tr> & lt;tr> <td>HCT - HEMATOCRIT</td> <td> 31.9 %</td> <td>36-46</td> </tr> <tr> <td>MEAN CORPUSCULAR VOLUME</td> <td>87.6 UM3</td> <td>80-100</td> &lt ;/tr> <tr> <td>MEAN CORPUSCULAR HGB</td> <td>27.2 UUG</td> <td>26-34</td> </tr> <tr> <td>MEAN CORPUSCULAR HGB CONC(MCHC& lt;/td> <td>31.0 GM/DL</td> <td>31-37</ td> </tr> <tr> <td>RDW STANDARD DEVIATION</td> <td>49.0 FL</td> <td> 36.9-50.2</td> </tr> <tr> <td> PLT - PLATELET COUNT</td> <td>259 T/MM3</td> <td>130-400</td> </tr> <tr> &lt ;td>MEAN PLATELET VOLUME</td> <td>9.8 UM3</td>< td>9.4-12.4</td> </tr> <tr> <td& gt;NEUTROPHILS % (AUTO)</td> <td>68.7 %< /td> <td>33-66</td> </tr> <tr&gt ; <td>LYMPHOCYTES % (AUTO)</td> <td> 21.1 %</td> <td>23-45</td> </tr&gt ; <tr> <td>MONOCYTES % (AUTO)</td> <td>7.1 %</td> <td>0-9.0</td> </tr> <tr> <td>EOSINOPHILS % (AUTO )</td> <td>2.4 %</td><td>0-4</td&gt ; </tr> <tr> <td>BASOPHILS %( AUTO)</td> <td>0.4 %</td> <td> 0-2</td> </tr> <tr> <td>IMMATURE GRANULOCYTE % (AUTO)</td> <td>0.3 %</td&gt ; <td>0.0-0.5</td> </tr> <tr> <td>NEUTROPHILS # (AUTO)</td> <td>5.4 T/MM3</ td> <td>1.8-7.7</td> </tr> <tr&gt ; <td>LYMPHOCYTES # (AUTO)</td> <td>1.7 T/ MM3</td> <td>1-4.8</td> </tr> &lt ;tr> <td>MONOCYTES # (AUTO)</td> <td>0.6 T/MM3< /td> <td>0-0.8</td> </tr> <tr&gt ; <td>EOSINOPHILS # (AUTO)</td> <td>0.2 T/ MM3</td> <td>0-0.5</td> </tr> <tr&gt ; <td>BASOPHILS # (AUTO)</td> <td>0.0 T/MM3& lt;/td> <td>0-0.2</td> </tr> <tr& gt; <td>IMMATURE GRANULOCYTE # (AUTO)</td> <td& gt;0.02 T/MM3</td> <td>0.00-0.03</td> </tr& gt; <tr> <th colspan="10">L200.0020 - 08:09</th> </tr> <tr> <td> ICTERUS</td> <td>< 2 </td> <td>0-7 </td> </tr> <tr> <td>HEMOLYSIS&lt ;/td> <td>< 15 </td> <td>0-25</ td> </tr> <tr> <td>TURBIDITY</td& gt; <td>< 20 </td> <td>0-20</td&gt ; </tr> <tr> <td>SODIUM</td> <td>149 MEQ/L</td> <td>134-144</td> </tr> <tr> <td>POTASSIUM</td> <td>4.2 MEQ/L</td> <td>3.6-5</td> &lt ;/tr> <tr> <td>CHLORIDE</td> < td>109 MEQ/L</td> <td>98-107</td> </tr& gt; <tr> <td>CO2 - CARBON DIOXIDE</td> <td>30 MEQ/L</td> <td>22-30</td> < /tr> <tr> <td>ANION GAP</td> < td>10 MEQ/L</td> <td>5-15</td> </tr> <tr> <td>BLOOD UREA NITROGEN</td> & lt;td>23.0 MG/DL</td> <td>7-17</td> </tr > <tr> <td>CREATININE</td> <td& gt;0.8 MG/DL</td> <td>0.7-1.2</td> </tr&gt ; <tr> <td>BUN/CREATININE RATIO</td> <td>29 RATIO</td> <td>6-26</td> </tr& gt; <tr> <td>GLOMERULAR FILTRATION RATE</td> <td>71 </td> <td /> </tr> & lt;tr> <td>GLUCOSE</td> <td>113 MG/DL< /td> <td>65-110</td> </tr> <tr> <td>OSMOLALITY,CALCULATED</td> <td>291 MOSM/ KG</td> <td>261-280</td> </tr> & lt;tr> <td>CALCIUM</td> <td>9.2 MG/DL< /td> <td>8.4-10.2</td> </tr> <tr&gt ; <td>BILIRUBIN,TOTAL</td> <td>0.40 MG/DL&lt ;/td> <td>0.20-1.30</td> </tr> < tr> <td>ALKALINE PHOSPHATASE</td> <td>74 U/L& lt;/td> <td>38-126</td> </tr> <tr > <td>TOTAL PROTEIN</td> <td>7.0 G/DL< /td> <td>6.3-8.2</td> </tr> <tr> <td>ALBUMIN</td> <td>3.5 G/DL</td> <td>3.5-5.0</td> </tr> <tr> <td>GLOBULIN</td> <td>3.5 G/DL</td> <td>2.4-3.6</td> </tr> <tr> <td& gt;ALBUMIN/GLOBULIN RATIO</td> <td>1.0 RATIO</td> <td>1.1-2.2</td> </tr> <tr> <td>AST (SGOT)</td> <td>22 U/L</td> <td>14-36</td> </tr> <tr> <td> ALT (SGPT)</td> <td>30 U/L</td> <td>9- 52</td> </tr> <tr> <th colspan=&quot ;10">L200.1999 - 10/05/16 08:09</th> </tr> &lt ;tr> <td>MAGNESIUM</td> <td>2.0 MG/DL</td& gt; <td>1.6-2.3</td> </tr> <tr> <th colspan="10">L200.206610/05/16 08:09</th> </tr> <tr> <td>LACTATE - LACTIC ACID, VENOUS</td> <td>1.2 MMOL/L</td> <td> 0.6-2.2</td> </tr> <tr> <th colspan= "10">L900.52910/05/16 16:58</th> </tr> <tr> <td>GLUCOMETER</td> <td>106 mg/dL& lt;/td> <td>65-110</td> </tr> <tr > <th colspan="10">L900.52910/05/16 21:08</th > </tr> <tr> <td>GLUCOMETER</td& gt; <td>88 mg/dL</td> <td>65-110</td> </tr> <tr> <th colspan="10"> L900.0530 - 10/06/16 06:13</th> </tr> <tr> < td>GLUCOMETER</td> <td>80 mg/dL</td> < td>65-110</td> </tr> <tr> <th colspan="10">L900.0530 - 10/06/16 08:38</th> </tr& gt; <tr> <td>GLUCOMETER</td> <td& gt;97 mg/dL</td> <td>65-110</td> </tr> <tr> <th colspan="10">L900.0530 - 10/06/16 14: 15</th></tr> <tr> <td>GLUCOMETER</td& gt; <td>219 mg/dL</td> <td>65-110</td&gt ; </tr> <tr> <th colspan="10"&gt ;L100.0060 - 10/06/16 19:43</th> </tr> <tr> <td>WBC - WHITE BLOOD COUNT</td> <td>7.9 T/MM3&lt ;/td> <td>4.5-11.0</td> </tr> <tr> <td>RED BLOOD COUNT</td> <td>3.55 M/MM3</td& gt; <td>4.00-5.20</td></tr> <tr> <td>HGB - HEMOGLOBIN</td> <td>9.7 GM/DL</td&gt ; <td>12-16</td> </tr> <tr> <td>HCT - HEMATOCRIT</td> <td>31.2 %< /td> <td>36-46</td> </tr> <tr&gt ; <td>MEAN CORPUSCULAR VOLUME</td> <td>87.9 UM3</td> <td>80-100</td> </tr> < tr> <td>MEAN CORPUSCULAR HGB</td> <td> 27.3 UUG</td> <td>26-34</td> </tr> <tr> <td>MEAN CORPUSCULAR HGB CONC(MCHC</td> <td>31.1 GM/DL</td> <td>31-37</td> </tr> <tr> <td>RDW STANDARD DEVIATION</td& gt; <td>50.3 FL</td> <td>36.9-50.2</td&gt ; </tr> <tr> <td>PLT - PLATELET COUNT&lt ;/td> <td>264 T/MM3</td> <td>130-400</ td> </tr> <tr> <td>MEAN PLATELET VOLUME</td> <td>9.5 UM3</td> <td>9.4- 12.4</td> </tr> <tr> <td> NEUTROPHILS % (MANUAL)</td> <td>72.0 %</ td> <td>33-66</td> </tr> <tr> <td>BAND NEUTROPHILS %</td> <td> 6.0 %</td> <td>0-6</td> </tr> <tr> <td>LYMPHOCYTES % (MANUAL)</td> & lt;td>17.0 %</td> <td>23-45</td> </ tr> <tr> <td>MONOCYTES % (MANUAL)</td& gt; <td>5.0 %</td> <td>0-9.0</td& gt; </tr> <tr> <td>BAND NEUTROPHILS #& lt;/td> <td>0.5 T/MM3</td> <td /> </tr& gt; <tr><td>NEUTROPHILS # (MANUAL)</td> <td >5.7 T/MM3</td> <td>1.8-7.7</td> </tr&gt ; <tr> <td>LYMPHOCYTES # (MANUAL)</td> <td>1.3 T/MM3</td> <td>1-4.8</td> &lt ;/tr> <tr> <td>MONOCYTES # (MANUAL)</td> <td>0.4 T/MM3</td> <td>0-0.8</td> </tr> <tr> <td>RBC MORPHOLOGY</td> <td>ABNORMAL </td> <td /> </tr> <tr> <td>ANISOCYTOSIS</td> <td&gt ;1+ </td> <td /> </tr> <tr> <td>POIKILOCYTOSIS</td> <td>1+ </td> <td /> </tr> <tr> <th colspan=& quot;10">L200.0050 - 10/06/16 19:43</th> </tr> < tr> <td>ICTERUS</td> <td>< 2 </ td> <td>0-7</td> </tr> <tr> & lt;td>HEMOLYSIS</td> <td>< 15 </td> <td>0-25</td> </tr> <tr> <td& gt;TURBIDITY</td> <td>< 20 </td> <td >0-20</td> </tr> <tr> <td> SODIUM</td> <td>144 MEQ/L</td> <td>134 -144</td> </tr> <tr> <td> POTASSIUM</td> <td>3.8 MEQ/L</td> <td> 3.6-5</td> </tr> <tr> <td> CHLORIDE</td> <td>106 MEQ/L</td> <td> 98-107</td> </tr> <tr> <td>CO2 - CARBON DIOXIDE</td> <td>26 MEQ/L</td> <td >22-30</td> </tr> <tr> <td> ANION GAP</td> <td>12 MEQ/L</td> <td>5 -15</td> </tr> <tr> <td>BLOOD UREA NITROGEN</td> <td>14.0 MG/DL</td> <td> 7-17</td> </tr> <tr> <td>CREATININE&lt ;/td> <td>0.8 MG/DL</td> <td>0.7-1.2</ td> </tr> <tr> <td>BUN/CREATININE RATIO</td> <td>18 RATIO</td> <td>6-26& lt;/td> </tr><tr> <td>GLOMERULAR FILTRATION RATE</td> <td>71 </td> <td /& gt; </tr> <tr> <td>GLUCOSE</td> <td>111 MG/DL</td> <td>65-110</td> </tr> <tr> <td>OSMOLALITY,CALCULATED</td&gt ; <td>279 MOSM/KG</td> <td>261-280</td&gt ; </tr> <tr> <td>CALCIUM</td> <td>8.6 MG/DL</td> <td>8.4-10.2</td>< /tr> <tr> <th colspan="10">L900.52910/06/16 20:54</th> </tr> <tr> <td& gt;GLUCOMETER</td> <td>65 mg/dL</td> <td& gt;65-110</td> </tr> <tr> <th colspan=& quot;10">L900.52910/06/16 21:35</th> </tr> < tr> <td>GLUCOMETER</td> <td>65 mg/dL</ td> <td>65-110</td> </tr> <tr> <th colspan="10">L900.52910/06/16 22:05</th> </tr> <tr> <td>GLUCOMETER</td> <td>72 mg/dL</td> <td>65-110</td> </ tr> <tr> <th colspan="10">L900.52910/06/16 22:52</th> </tr> <tr> <td& gt;GLUCOMETER</td><td>71 mg/dL</td> <td>65-110& lt;/td> </tr> <tr> <th colspan="10 ">L900.0530 - 10/07/16 00:00</th> </tr> <tr > <td>GLUCOMETER</td> <td>75 mg/dL</td > <td>65-110</td> </tr> <tr> <th colspan="10">L100.0060 - 10/07/16 04:42</th> </tr> <tr> <td>WBC - WHITE BLOOD COUNT&lt ;/td> <td>7.1 T/MM3</td> <td>4.5-11.0< /td> </tr> <tr> <td>RED BLOOD COUNT& lt;/td> <td>3.70 M/MM3</td> <td>4.00-5.20 </td> </tr> <tr> <td>HGB - HEMOGLOBIN</td> <td>9.8 GM/DL</td> <td&gt ;12-16</td> </tr> <tr> <td>HCT - HEMATOCRIT</td> <td>32.4 %</td> < td>36-46</td> </tr> <tr> <td> MEAN CORPUSCULAR VOLUME</td> <td>87.6 UM3</td> < td>80-100</td> </tr> <tr> <td> MEAN CORPUSCULAR HGB</td> <td>26.5 UUG</td> <td& gt;26-34</td> </tr> <tr> <td> MEAN CORPUSCULAR HGB CONC(MCHC</td> <td>30.2 GM/DL</td& gt; <td>31-37</td> </tr> <tr> <td>RDW STANDARD DEVIATION</td> <td>50.3 FL</td> <td>36.9-50.2</td> </tr> <tr> <td>PLT - PLATELET COUNT</td> <td>250 T/MM3& lt;/td> <td>130-400</td> </tr> <tr&gt ; <td>MEAN PLATELET VOLUME</td> <td>9.9 UM3& lt;/td> <td>9.4-12.4</td> </tr> <tr& gt; <td>NEUTROPHILS % (MANUAL)</td> <td> 72.0 %</td> <td>33-66</td> </tr> <tr> <td>BAND NEUTROPHILS %</td> &lt ;td>4.0 %</td> <td>0-6</td> </tr > <tr> <td>LYMPHOCYTES % (MANUAL)</td& gt; <td>17.0 %</td> <td>23-45</td > </tr> <tr> <td>MONOCYTES &#37 ; (MANUAL)</td> <td>5.0 %</td> < td>0-9.0</td> </tr> <tr> <td> EOSINOPHILS % (MANUAL)</td> <td>2.0 %</td> <td>0-4</td> </tr> <tr> & lt;td>BAND NEUTROPHILS #</td> <td>0.3 T/MM3</td> <td /> </tr> <tr> <td> NEUTROPHILS # (MANUAL)</td> <td>5.1 T/MM3</td> <td>1.8-7.7</td> </tr> <tr> & lt;td>LYMPHOCYTES # (MANUAL)</td> <td>1.2 T/MM3</td& gt; <td>1-4.8</td> </tr> <tr> <td>MONOCYTES # (MANUAL)</td> <td>0.4 T/MM3&lt ;/td> <td>0-0.8</td> </tr> <tr&gt ; <td>EOSINOPHILS # (MANUAL)</td> <td>0.1 T/ MM3</td> <td>0-0.5</td> </tr><tr> <td>NUCLEATED RED BLOOD CELLS</td> <td>1 & lt;/td> <td /> </tr> <tr> &lt ;td>RBC MORPHOLOGY</td> <td>ABNORMAL </td> <td /> </tr> <tr> <td> ANISOCYTOSIS</td> <td>1+ </td> <td /> </tr> <tr> <td>POIKILOCYTOSIS</td> <td>1+ </td> <td /> </tr> <tr> <th colspan="10">L200.0020 - 04 04 :42</th> </tr> <tr> <td>ICTERUS& lt;/td> <td>< 2 </td> <td>0-7</ td> </tr> <tr> <td>HEMOLYSIS</td& gt; <td>< 15 </td> <td>0-25</td&gt ; </tr> <tr> <td>TURBIDITY</td> <td>< 20 </td> <td>0-20</td> </tr> <tr> <td>SODIUM</td> <td>145 MEQ/L</td> <td>134-144</td> & lt;/tr> <tr> <td>POTASSIUM</td> <td&gt ;3.9 MEQ/L</td> <td>3.6-5</td> </tr> <tr> <td>CHLORIDE</td> <td>106 MEQ/L</td> <td>98-107</td> </tr> <tr> <td>CO2 - CARBON DIOXIDE</td> <td>28 MEQ/L</td> <td>22-30</td> </tr> & lt;tr> <td>ANION GAP</td> <td>11 MEQ/L</ td> <td>5-15</td> </tr> <tr> <td>BLOOD UREA NITROGEN</td> <td>13.0 MG/DL& lt;/td> <td>7-17</td> </tr> <tr> <td>CREATININE</td> <td>0.7 MG/DL</td&gt ; <td>0.7-1.2</td> </tr> <tr> <td>BUN/CREATININE RATIO</td> <td>19 RATIO< /td> <td>6-26</td> </tr> <tr> <td>GLOMERULAR FILTRATION RATE</td> <td>82 </td> <td /> </tr> <tr> < td>GLUCOSE</td> <td>93 MG/DL</td> <td& gt;65-110</td> </tr> <tr> <td> OSMOLALITY,CALCULATED</td> <td>279 MOSM/KG</td> <td>261-280</td> </tr> <tr> <td>CALCIUM</td> <td>8.6 MG/DL</td> & lt;td>8.4-10.2</td> </tr> <tr> < td>BILIRUBIN,TOTAL</td> <td>0.50 MG/DL</td> <td>0.20-1.30</td> </tr> <tr> <td>ALKALINE PHOSPHATASE</td> <td>83 U/L</td&gt ; <td>38-126</td> </tr> <tr> <td>TOTAL PROTEIN</td> <td>6.7 G/DL</td> <td>6.3-8.2</td> </tr> <tr> <td>ALBUMIN</td> <td>3.3 G/DL</td> <td>3.5-5.0</td> </tr> <tr> <td& gt;GLOBULIN</td> <td>3.4 G/DL</td> <td&gt ;2.4-3.6</td> </tr> <tr> <td> ALBUMIN/GLOBULIN RATIO</td> <td>1.0 RATIO</td> <td>1.1-2.2</td> </tr> <tr> & lt;td>AST (SGOT)</td> <td>24 U/L</td> &lt ;td>14-36</td> </tr> <tr> <td> ALT (SGPT)</td> <td>28 U/L</td> <td>9- 52</td> </tr> <tr> <th colspan=&quot ;10">L900.0530 - 10/07/16 05:58</th> </tr> &lt ;tr> <td>GLUCOMETER</td> <td>92 mg/dL< /td> <td>65-110</td> </tr> <tr> <th colspan="10">L900.0530 - 10/07/16 08:54</th> </tr> <tr> <td>GLUCOMETER</td> <td>128 mg/dL</td> <td>65-110</td> & lt;/tr> <tr> <th colspan="10"> L900.0530 - 10/07/16 13:57</th> </tr> <tr> <td>GLUCOMETER</td> <td>186 mg/dL</td> <td>65-110</td> </tr> <tr> <th colspan="10">L900.0530 - 10/07/16 17:10</th> </tr> <tr> <td>GLUCOMETER</td> <td>134 mg/dL</td> <td>65-110</td> </ tr> <tr> <th colspan="10">L900.0530 - 10/07/16 18:06</th> </tr> <tr> <td& gt;GLUCOMETER</td> <td>127 mg/dL</td> <td >65-110</td> </tr> <tr> <th colspan=&quot ;10">L100.0050 - 11/08/16 11:52</th> </tr> &lt ;tr> <td>WBC - WHITE BLOOD COUNT</td> <td&gt ;8.0 T/MM3</td> <td>4.5-11.0</td> </tr> <tr> <td>REDBLOOD COUNT</td> <td& gt;4.17 M/MM3</td> <td>4.00-5.20</td> </tr& gt; <tr> <td>HGB - HEMOGLOBIN</td> & lt;td>11.2 GM/DL</td> <td>12-16</td> </ tr> <tr> <td>HCT - HEMATOCRIT</td> & lt;td>35.9 %</td> <td>36-46</td> & lt;/tr> <tr> <td>MEAN CORPUSCULAR VOLUME</td& gt; <td>86.1 UM3</td> <td>80-100</td> </tr> <tr> <td>MEAN CORPUSCULAR HGB&lt ;/td> <td>26.9 UUG</td> <td>26-34</td& gt; </tr> <tr> <td>MEAN CORPUSCULAR HGB CONC(MCHC</td> <td>31.2 GM/DL</td> < td>31-37</td> </tr> <tr> <td> RDW STANDARD DEVIATION</td> <td>49.1 FL</td> <td>36.9-50.2</td> </tr> <tr> & lt;td>PLT - PLATELET COUNT</td> <td>276 T/MM3</td&gt ; <td>130-400</td> </tr> <tr> & lt;td>MEAN PLATELET VOLUME</td> <td>10.5 UM3</td> <td>9.4-12.4</td> </tr> <tr> <td>NEUTROPHILS % (AUTO)</td> <td> 68.5 %</td> <td>33-66</td> </tr> <tr> <td>LYMPHOCYTES % (AUTO)</td><td& gt;21.4 %</td> <td>23-45</td> </tr& gt; <tr> <td>MONOCYTES % (AUTO)</td> <td>6.6 %</td> <td>0-9.0</td> </tr> <tr> <td>EOSINOPHILS % ( AUTO)</td> <td>2.9 %</td> <td> 0-4</td> </tr> <tr> <td> BASOPHILS % (AUTO)</td> <td>0.3 %</td&gt ; <td>0-2</td> </tr> <tr> <td>IMMATURE GRANULOCYTE % (AUTO)</td> <td&gt ;0.3 %</td> <td>0.0-0.5</td> </tr& gt; <tr> <td>NEUTROPHILS # (AUTO)</td> <td>5.5 T/MM3</td> <td>1.8-7.7</td> < /tr> <tr> <td>LYMPHOCYTES # (AUTO)</td> <td>1.7 T/MM3</td> <td>1-4.8</td> & lt;/tr> <tr> <td>MONOCYTES # (AUTO)</td> <td>0.5 T/MM3</td> <td>0-0.8</td> </tr> <tr> <td>EOSINOPHILS # (AUTO)</td> <td>0.2 T/MM3</td> <td>0-0.5</td> </tr> <tr> <td>BASOPHILS # (AUTO)</td&gt ; <td>0.0 T/MM3</td> <td>0-0.2</td> </tr> <tr> <td>IMMATURE GRANULOCYTE # ( AUTO)</td> <td>0.02 T/MM3</td> <td> 0.00-0.03</td> </tr> <tr> <th colspan=&quot ;10">L200.0020 - 11/08/16 11:52</th> </tr> &lt ;tr> <td>ICTERUS</td> <td>< 2 < /td> <td>0-7</td> </tr> <tr> <td>HEMOLYSIS</td> <td>< 15 </td&gt ; <td>0-25</td> </tr> <tr> &lt ;td>TURBIDITY</td> <td>< 20 </td> <td >0-20</td> </tr> <tr> <td> SODIUM</td> <td>146 MEQ/L</td> <td>134 -144</td> </tr> <tr> <td>POTASSIUM& lt;/td> <td>4.3 MEQ/L</td> <td>3.6-5</td&gt ; </tr> <tr> <td>CHLORIDE</td> <td>103 MEQ/L</td> <td>98-107</td> </tr> <tr> <td>CO2 - CARBON DIOXIDE</td > <td>29 MEQ/L</td> <td>22-30</td> </tr> <tr> <td>ANION GAP</td> <td>14 MEQ/L</td> <td>5-15</td> </tr > <tr> <td>BLOOD UREA NITROGEN</td> <td>26.0 MG/DL</td> <td>7-17</td> &lt ;/tr> <tr> <td>CREATININE</td> <td> 0.7 MG/DL</td> <td>0.7-1.2</td> </tr> <tr> <td>BUN/CREATININE RATIO</td> <td& gt;37 RATIO</td> <td>6-26</td> </tr> <tr> <td>GLOMERULAR FILTRATION RATE</td> <td>82 </td> <td /> </tr> <tr& gt; <td>GLUCOSE</td> <td>143 MG/DL</td> <td>65-110</td> </tr> <tr> & lt;td>OSMOLALITY,CALCULATED</td> <td>288 MOSM/KG</td& gt; <td>261-280</td> </tr> <tr> <td>CALCIUM</td> <td>9.3 MG/DL</td> <td>8.4-10.2</td> </tr> <tr> <td>BILIRUBIN,TOTAL</td> <td>0.50 MG/DL</td&gt ; <td>0.20-1.30</td> </tr> <tr> <td>ALKALINE PHOSPHATASE</td> <td>87 U/L< /td> <td>38-126</td> </tr> <tr&gt ; <td>TOTAL PROTEIN</td> <td>7.8 G/DL</td> <td>6.3-8.2</td> </tr> <tr> <td>ALBUMIN</td> <td>4.2 G/DL</td> & lt;td>3.5-5.0</td> </tr> <tr> <td >GLOBULIN</td> <td>3.6 G/DL</td> <td>2.4- 3.6</td> </tr> <tr> <td>ALBUMIN/ GLOBULIN RATIO</td> <td>1.2 RATIO</td> <td& gt;1.1-2.2</td> </tr> <tr> <td> AST (SGOT)</td> <td>20 U/L</td> <td>14 -36</td> </tr> <tr> <td>ALT (SGPT )</td> <td>35 U/L</td> <td>9-52</td& gt; </tr> <tr> <th colspan="10"& gt;L200.1860 - 11/08/16 11:52</th> </tr> <tr> <td>C-REACTIVE PROTEIN</td> <td>18.7 MG/L< /td> <td>0-9</td> </tr> <tr> <th colspan="10">L750.8263 - 11/08/16 11:52</th> </tr> <tr> <td>ESR - SEDIMENTATIONRATE - AMS</td> <td>90 mm/h</td> <td>0-23</td> </tr> <tr> <th colspan="10">L750.8263 - 11/14/16 11:35</th> </tr& gt; <tr> <td>ESR - Sedimentation Rate - AMS</td& gt; <td>99 mm/h</td> <td>0-23</td> </tr> <tr> <th colspan="10"> L200.0052 - 12/01/16 14:56</th> </tr> <tr> & lt;td>Specimen Type, Urine - MK</td> <td>Urine, Clean Catch </td> <td>NRG</td> </tr> & lt;tr> <td>Color, Urine - MK</td> <td> YELLOW </td> <td>YELLOW</td> </tr> <tr& gt; <td>Clarity,Urine -MK</td> <td>SL CLOUDY </td> <td>NRG</td> </tr> & lt;tr> <td>Specific [place],Urine - MK</td> &lt ;td>1.015 </td> <td>1.015-1.025</td> </ tr> <tr> <td>PH,Urine - MK</td> <td >5.5 </td> <td>5.0-8.0</td> </tr> <tr> <td>Leukocyte Esterase,Urine - MK</td> <td>3+ </td> <td>NEGATIVE</td> &lt ;/tr> <tr> <td>Nitrate,Urine - MK</td> <td>POSITIVE </td> <td>NEGATIVE</td> </tr> <tr> <td>Protein,Urine - Dipstick - MK</td> <td>NEGATIVE </td> <td> NEGATIVE</td> </tr> <tr> <td> Glucose,Urine - Dipstick - MK</td> <td>NEGATIVE </td&gt ; <td>NEGATIVE</td></tr> <tr> & lt;td>Ketones,Urine - Dipstick - MK</td> <td>NEGATIVE & lt;/td> <td>NEGATIVE</td> </tr> < tr> <td>Urobilinogen,Urine - MK</td> <td> 0.2 EU/DL</td> <td>NORMAL</td> </tr> <tr> <td>Bilirubin,Urine - Dipstick -MK</td> <td>NEGATIVE </td> <td>NEGATIVE</td> & lt;/tr> <tr> <td>Occult Blood,Sywol-Yvyztntc-BY& lt;/td> <td>NEGATIVE </td> <td>NEGATIVE& lt;/td> </tr> <tr> <td>RBC,Urine - MK</td> <td>10-20 /HPF</td> <td>0-3&lt ;/td> </tr> <tr> <td>WBC,Urine - MK& lt;/td> <td>50-200 /HPF</td> <td>0-5</ td> </tr> <tr> <td>WBC Clumps,Urine - MK& lt;/td> <td>None Seen </td> <td>NRG</ td> </tr> <tr> <td>Squamous Epithelial Cell,Ur-MK</td> <td>10-20 </td> <td>NRG</td& gt; </tr> <tr> <td>Transitional Epi Cells,Ur-MK</td> <td>None seen /HPF</td> &lt ;td>NRG</td> </tr> <tr> <td> Renal Epithelial Cells,Ur-MK</td> <td>None seen /HPF</td> <td>NRG</td> </tr> <tr> & lt;td>Calcium Carbonate Cryst,Ur-MK</td> <td>None seen & lt;/td> <td>NRG</td> </tr> <tr&gt ; <td>Calcium Phosphate Cryst,Ur-MK</td> <td&gt ;None seen </td> <td>NRG</td> </tr> <tr> <td>Calcium Oxalate Crystals,Ur-MK</td> <td>None seen </td> <td>NRG</td> & lt;/tr> <tr> <td>Cystine Crystals,Urine-MK</td > <td>Noneseen </td> <td>NRG</td> </tr> <tr> <td>Uric Acid Crystals,Urine -MK</td> <td>None seen </td> <td>NRG& lt;/td> </tr> <tr> <td>Triple Phosphate Crystal,Ur-MK</td> <td>None seen </td> <td>NRG</td> </tr> <tr> &lt ;td>Tyrosine Crystal,Urine-MK</td> <td>None seen </td > <td>NRG</td> </tr> <tr> &lt ;td>Amorphous Sediment,Urine-MK</td> <td>None seen </ td><td>NRG</td> </tr> <tr> &lt ;td>Bacteria,Urine-MK</td> <td>2+ </td> & lt;td>NEGATIVE</td> </tr> <tr> <td >Fatty Casts,Urine-MK</td> <td>None seen /LPF</td&gt ; <td>NRG</td> </tr> <tr> <td>Hyaline Casts,Urine-MK</td> <td>None seen /LPF </td> <td>NRG</td> </tr> <tr& gt; <td>Granular Casts,Urine-MK</td> <td> None seen </td> <td>NRG</td> </tr> & lt;tr> <td>Waxy Casts,Urine-MK</td> <td> None seen /LPF</td> <td>NRG</td> </tr> <tr> <td>White Blood Cell Casts,Ur-MK</td> <td>None seen /LPF</td> <td>NRG</td> </tr> <tr> <td>Hemoglogin casts, Urine-MK </td> <td>None seen /LPF</td> <td>NRG& lt;/td> </tr> <tr> <td>Starch,Urine- MK</td> <td>None seen </td> <td>NRG&lt ;/td> </tr> <tr> <td>Mucus,Urine-MK& lt;/td> <td>None seen </td> <td>NRG</ td> </tr> <tr> <td>Trichomonas,Urine- MK</td> <td>None seen </td> <td>NRG&lt ;/td> </tr> <tr> <td>Yeast,Urine-MK</ td> <td>None seen </td> <td>NEGATIVE</ td> </tr> <tr> <td>Sperm,Urine-MK&lt ;/td> <td>None seen </td> <td>NRG</td& gt; </tr> <tr> <td>Oval Fat Bodies,Urine-MK& lt;/td> <td>None seen </td> <td>NRG</ td> </tr> <tr> <th colspan="10& quot;>L100.6375 - 12/01/16 16:09</th> </tr> <tr& gt; <td>ESR - MK</td> <td>94 MM/HR</td> <td>0-20</td> </tr> <tr> &lt ;th colspan="10">L100.6375 - 12/05/16 11:05</th> </ tr> <tr> <td>ESR - MK</td> <td> 87 MM/HR</td> <td>0-20</td> </tr> <tr> <th colspan="10">L100.6375 - 12/19/16 08: 57</th> </tr> <tr> <td>ESR - MK& lt;/td> <td>70 MM/HR</td> <td>0-20</td& gt; </tr> <tr> <th colspan="10"& gt;L100.0050 - 07/ 05:45</th> </tr> <tr> <td>WBC - WHITE BLOOD COUNT</td> <td>9.0 T/ MM3</td> <td>4.5-11.0</td> </tr> <tr> <td>RED BLOOD COUNT</td> <td> 4.35 M/MM3</td> <td>4.00-5.20</td> </tr&gt ; <tr> <td>HGB - HEMOGLOBIN</td> < td>11.9 GM/DL</td> <td>12-16</td> </tr& gt; <tr> <td>HCT- HEMATOCRIT</td> &lt ;td>38.4 %</td> <td>36-46</td> < /tr> <tr> <td>MEAN CORPUSCULAR VOLUME</td> <td>88.3 UM3</td> <td>80-100</td> &lt ;/tr> <tr> <td>MEAN CORPUSCULAR HGB</td> <td>27.4 UUG</td> <td>26-34</td> </ tr> <tr> <td>MEAN CORPUSCULAR HGB CONC(MCHC</ td> <td>31.0 GM/DL</td> <td>31-37</td& gt; </tr> <tr> <td>RDW STANDARD DEVIATION</td> <td>53.0 FL</td> <td>36.9-50.2& lt;/td> </tr> <tr> <td>PLT - PLATELET COUNT</td> <td>246 T/MM3</td> <td&gt ;130-400</td> </tr> <tr> <td> MEAN PLATELET VOLUME</td> <td>10.1 UM3</td> <td>9.4-12.4</td> </tr> <tr> <td >NEUTROPHILS % (AUTO)</td> <td>82.9 %</td&gt ; <td>33-66</td> </tr><tr> < td>LYMPHOCYTES % (AUTO)</td> <td>11.8 %& lt;/td> <td>23-45</td> </tr> <tr& gt; <td>MONOCYTES % (AUTO)</td> <td> 4.9 %</td> <td>0-9.0</td> </tr> <tr> <td>EOSINOPHILS % (AUTO)</td> <td>0.1 %</td> <td>0-4</td> &lt ;/tr> <tr> <td>BASOPHILS % (AUTO)</td& gt; <td>0.1 %</td> <td>0-2</td&gt ; </tr> <tr> <td>IMMATURE GRANULOCYTE & amp;#37; (AUTO)</td> <td>0.2 %</td> <td>0.0-0.5</td> </tr> <tr> < td>NEUTROPHILS # (AUTO)</td> <td>7.4 T/MM3</td> <td>1.8-7.7</td> </tr> <tr> <td>LYMPHOCYTES # (AUTO)</td> <td>1.1 T/MM3</ td> <td>1-4.8</td> </tr> <tr> <td>MONOCYTES # (AUTO)</td> <td>0.4 T/MM3</td& gt; <td>0-0.8</td> </tr> <tr> <td>EOSINOPHILS # (AUTO)</td> <td>0.0 T/MM3&lt ;/td> <td>0-0.5</td> </tr> <tr> <td>BASOPHILS # (AUTO)</td> <td>0.0 T/MM3& lt;/td> <td>0-0.2</td> </tr> <tr& gt; <td>IMMATURE GRANULOCYTE # (AUTO)</td> <td> 0.02 T/MM3</td> <td>0.00-0.03</td> </tr> <tr> <th colspan="10">L200.0050 - 01/01/17 05 :45</th> </tr> <tr> <td>FUNGAL CULTURE.</td> <td>0.9 MG/DL</td> <td> 0.7-1.2</td> </tr> <tr> <td> FUNGAL CULTURE, BLOOD.</td> <td>36 RATIO</td> <td>6-26</td> </tr> <tr> <td >NA - Sodium</td> <td>143 MEQ/L</td><td>134- 144</td> </tr> <tr> <td>Potassium </td> <td>3.9 MEQ/L</td> <td>3.6-5< /td> </tr> <tr> <td>Chloride</td&gt ; <td>105 MEQ/L</td> <td>98-107</td> </tr> <tr> <td>CO2 - CarbonDioxide</td> <td>27 MEQ/L</td> <td>22-30</td></ tr> <tr> <td>Anion Gap</td> <td >11 MEQ/L</td> <td>5-15</td> </tr> <tr> <td>BUN - Blood Urea Nitrogen</td> <td>32.0 MG/DL</td> <td>7-17</td> &lt ;/tr> <tr> <td>Glomerular Filtration Rate</td& gt; <td>62 </td> <td>NRG</td> & lt;/tr> <tr> <td>Glucose</td> < td>249 MG/DL</td> <td>65-110</td> </tr& gt; <tr> <td>Osmolality,Calculated</td> <td>290 MOSM/KG</td> <td>261-280</td> </tr> <tr> <td>Calcium</td> <td>9.2 MG/DL</td> <td>8.4-10.2</td> &lt ;/tr> <tr> <td>LICTERUS</td> < td>< 2 </td> <td>0-7</td> </tr&gt ; <tr> <td>LHEMOLYSIS</td> <td> < 15 </td> <td>0-25</td> </tr> <tr> <td>LTURBIDITY</td> <td>& amp;lt; 20 </td> <td>0-20</td> </tr> <tr> <th colspan="10">L300.3490 - 01/01/17 05 :45</th> </tr> <tr> <td>Troponin I</td> <td>0.038 ng/ml</td> <td>0-0.12</td& gt; </tr> <tr> <th colspan="10"& gt;L300.3700 - 01/01/17 05:45</th> </tr> <tr> <td>B-Type Natriuretic Peptide</td> <td>1710 pg/mL</td> <td>0-175</td> </tr> & lt;tr> <th colspan="10">L750.8263 - 01/01/17 05:45</th&gt ; </tr> <tr> <td>ESR - Sedimentation Rate - AMS</td> <td>56 mm/h</td> <td>0 -23</td> </tr> <tr> <th colspan=& quot;10">L200.1350 - 01/01/17 05:45</th> </tr> <tr> <td>Triglycerides - Batch</td> <td> 260 MG/DL</td> <td>35-135</td> </tr> <tr> <td>Cholesterol - Batch</td> < td>220 MG/DL</td> <td>132-199</td> </tr& gt; <tr> <td>LDL Cholesterol,Calculated</td> <td>128.0 </td> <td>66-159</td> </tr> <tr> <td>VLDL Cholesterol</td> <td>52.0 MG/DL</td> <td>0-28</td> </tr> <tr> <td>HDL Cholesterol, Direct - Batch</td> <td>40 MG/DL</td> <td>40-60 </td> </tr> <tr> <td>Chol/HDL Ratio</td> <td>5.5 RATIO</td> <td>0- 4.0</td> </tr> <tr> <th colspan=& quot;10">L300.3490 - 01/01/17 07:33</th> </tr> <tr> <td>Troponin I</td> <td>0.041 ng/ml</td> <td>0-0.12</td> </tr> <tr> <td>LHEMOLYSIS</td> <td>< 15 </td> <td>0-25</td> </tr> < tr> <th colspan="10">L200.2000 - 01/01/17 07:33</ th> </tr> <tr> <td>MAG - Magnesium</ td> <td>2.0 MG/DL</td> <td>1.6-2.3</td > </tr> <tr> <th colspan="10" >L200.3855 - 01/01/17 07:33</th> </tr> <tr>& lt;td>TSH w Reflex T4 Free</td> <td>2.31 MIU/L</td&gt ; <td>0.47-4.68</td> </tr> <tr> <th colspan="10">L300.3490 - 01/01/17 15:13</th> </tr> <tr> <td>Troponin I</td> <td>0.036 ng/ml</td> <td>0-0.12</td>& lt;/tr> <tr> <td>LHEMOLYSIS</td> & lt;td>< 15 </td> <td>0-25</td> </ tr> <tr> <thcolspan="10">L900.0530 - 15:21</th> </tr> <tr> <td> Glucometer</td> <td>87 mg/dL</td> <td> 65-110</td> </tr> <tr> <th colspan=& quot;10">L900.0501/01/17 17:33</th> </tr> <tr> <td>Glucometer</td> <td>110 mg/ dL</td> <td>65-110</td> </tr> &lt ;tr> <th colspan="10">L900.0530 01/01/17 21:02< /th> </tr> <tr> <td>Glucometer</ td> <td>249 mg/dL</td> <td>65-110</td& gt; </tr> <tr><th colspan="10"> L900.0530 01/02/17 06:00</th> </tr> <tr> <td>Glucometer</td> <td>74 mg/dL</td> <td>65-110</td> </tr> <tr> <th colspan="10">L100.0075 01/02/17 06:00</th> & lt;/tr> <tr> <td>WBC -WHITE BLOOD COUNT</td&gt ; <td>8.6 T/MM3</td> <td>4.5-11.0</td&gt ; </tr> <tr> <td>RED BLOOD COUNT</td > <td>4.39 M/MM3</td> <td>4.00-5.20</ td> </tr> <tr> <td>HGB - HEMOGLOBIN& lt;/td> <td>12.1 GM/DL</td> <td>12-16</td> </tr> <tr> <td>HCT - HEMATOCRIT</td > <td>39.1 %</td> <td>36-46</ td> </tr> <tr> <td>MEAN CORPUSCULAR VOLUME</td> <td>89.1 UM3</td> <td>80- 100</td> </tr> <tr> <td>MEAN CORPUSCULAR HGB</td> <td>27.6 UUG</td> < td>26-34</td> </tr> <tr> <td> MEAN CORPUSCULAR HGB CONC(MCHC</td> <td>30.9 GM/DL</td& gt; <td>31-37</td> </tr> <tr> <td>RDW STANDARD DEVIATION</td> <td>54.1 FL&lt ;/td> <td>36.9-50.2</td> </tr> < tr> <td>PLT - PLATELET COUNT</td> <td>222 T/MM3 </td> <td>130-400</td> </tr> < tr> <td>MEAN PLATELET VOLUME</td> <td> 9.6 UM3</td> <td>9.4-12.4</td> </tr> <tr> <td>NEUTROPHILS % (MANUAL)</td> <td>73.0 %</td> <td>33-66</td> </tr> <tr> <td>BAND NEUTROPHILS &#37 ;</td> <td>1.0 %</td> <td>0-6& lt;/td> </tr> <tr> <td>LYMPHOCYTES & amp;#37; (MANUAL)</td> <td>15.0 %</td> <td>23-45</td> </tr> <tr> &lt ;td>MONOCYTES % (MANUAL)</td> <td>9.0 %& lt;/td> <td>0-9.0</td> </tr> <tr& gt; <td>EOSINOPHILS % (MANUAL)</td> <td >1.0 %</td> <td>0-4</td> </tr&gt ; <tr> <td>BASOPHILS % (MANUAL)</td> <td>1.0 %</td> <td>0-2</td> &lt ;/tr> <tr> <td>PROLYMPHOCYTES %</td&gt ; <td>6.3 T/MM3</td> <td>1.8-7.7</td> </tr> <tr> <td>PLASMA CELLS %& lt;/td> <td>0.1 T/MM3</td> <td>NRG</td > </tr> <tr> <td>NEUTROPHILS # (MANUAL )</td> <td>0.8 T/MM3</td><td>0-0.8</td> </tr> <tr> <td>MONOCYTES # (MANUAL)< /td> <td>0.1 T/MM3</td> <td>0-0.5</td& gt; </tr> <tr> <td>BASOPHILS # (MANUAL) </td> <td>0.1 T/MM3</td> <td>0-0.2< /td> </tr> <tr> <td>Lymphocytes # ( Manual)</td> <td>1.3 T/MM3</td> <td>1- 4.8</td> </tr> <tr> <td>LRBCMOR& lt;/td> <td>Normal </td> <td>NRG</td& gt; </tr> <tr> <th colspan="10"> L200.0050 - 01/02/17 06:00</th> </tr> <tr> & lt;td>FUNGAL CULTURE.</td> <td>0.8 MG/DL</td> <td>0.7-1.2</td> </tr> <tr> & lt;td>FUNGAL CULTURE, BLOOD.</td> <td>34 RATIO</td&gt ; <td>6-26</td> </tr> <tr> <td>NA - Sodium</td> <td>142MEQ/L</td> <td>134-144</td> </tr> <tr><td> Potassium</td> <td>4.2 MEQ/L</td> <td> 3.6-5</td> </tr> <tr> <td> Chloride</td> <td>102 MEQ/L</td> <td> 98-107</td> </tr> <tr> <td>CO2 - Carbon Dioxide</td> <td>32 MEQ/L</td> <td>22- 30</td> </tr> <tr> <td>Anion Gap& lt;/td> <td>8 MEQ/L</td> <td>5-15</td> </tr> <tr> <td>BUN - Blood Urea Nitrogen </td> <td>27.0 MG/DL</td> <td>7-17</ td> </tr> <tr> <td>Glomerular Filtration Rate</td> <td>71 </td> <td> NRG</td> </tr> <tr> <td>Glucose</td& gt; <td>73 MG/DL</td> <td>65-110</td> </tr> <tr> <td>Osmolality,Calculated& lt;/td> <td>277 MOSM/KG</td> <td>261-280& lt;/td> </tr> <tr> <td>Calcium</ td> <td>9.0 MG/DL</td> <td>8.4-10.2</ td> </tr> <tr> <td>LICTERUS</td& gt; <td>< 2 </td> <td>0-7</td> </tr> <tr> <td>LHEMOLYSIS</td> & lt;td>< 15 </td> <td>0-25</td> </ tr> <tr> <td>LTURBIDITY</td> < td>< 20 </td> <td>0-20</td> </tr& gt; <tr> <th colspan="10">L900.0530 - 11:50</th> </tr> <tr> <td> Glucometer</td> <td>108 mg/dL</td> <td&gt ;65-110</td></tr> <tr> <th colspan="10 ">L900.0530 - 01/02/17 16:46</th> </tr> <tr > <td>Glucometer</td> <td>115 mg/dL</ td> <td>65-110</td> </tr> <tr&gt ; <th colspan="10">L100.6375 - 01/12/17 10:34</th> </tr> <tr> <td>ESR - MK</td> <td>78 MM/HR</td> <td>0-20</td> </tr> <tr> <th colspan="10">L200.1999 - 02/13/17 14:02</th> </tr> <tr> <td>MAG - Magnesium</td> <td>1.9 MG/DL</td> <td> 1.6-2.3</td> </tr> <tr> <th colspan= "10">L200.385 - 02/13/17 14:02</th> </tr> <tr> <td>TSH - Thyroid Stim Hormone</td> <td>2.16 MIU/L</td> <td>0.47-4.68</td> & lt;/tr> <tr> <th colspan="10"> L100.0050 - 02/13/17 14:07</th> </tr> <tr> <td>WBC - WHITE BLOOD COUNT</td> <td>13.6 T/MM3</ td> <td>4.5-11.0</td> </tr> <tr> <td>RED BLOOD COUNT</td> <td>3.99 M/MM3</td > <td>4.00-5.20</td> </tr> <tr> <td>HGB -HEMOGLOBIN</td> <td>11.4 GM/DL< /td> <td>12-16</td> </tr> <tr> <td>HCT - HEMATOCRIT</td> <td>35.7 %& lt;/td> <td>36-46</td> </tr> <tr& gt; <td>MEAN CORPUSCULAR VOLUME</td> <td>89.5 UM3</td> <td>80-100</td> </tr> & lt;tr> <td>MEAN CORPUSCULAR HGB</td> <td> 28.6 UUG</td> <td>26-34</td> </tr> <tr> <td>MEAN CORPUSCULAR HGB CONC(MCHC</td> <td>31.9 GM/DL</td> <td>31-37</td> </tr> <tr> <td>RDW STANDARD DEVIATION</td> <td>52.0 FL</td> <td>36.9-50.2</td> </tr> <tr> <td>PLT - PLATELET COUNT< /td> <td>294 T/MM3</td> <td>130-400</ td> </tr> <tr> <td>MEAN PLATELET VOLUME</td> <td>9.8 UM3</td> <td>9.4- 12.4</td> </tr> <tr> <td>NEUTROPHILS & #37; (AUTO)</td> <td>82.7 %</td> <td&gt ;33-66</td> </tr> <tr> <td> LYMPHOCYTES % (AUTO)</td> <td>9.4 %</td& gt; <td>23-45</td> </tr> <tr> <td>MONOCYTES % (AUTO)</td> <td>6.3 & #37;</td> <td>0-9.0</td> </tr> <tr& gt; <td>EOSINOPHILS % (AUTO)</td> <td& gt;0.6 %</td> <td>0-4</td> </tr&gt ; <tr> <td>BASOPHILS % (AUTO)</td> <td>0.2 %</td> <td>0-2</td> </tr> <tr> <td>IMMATURE GRANULOCYTE &# 37; (AUTO)</td> <td>0.8 %</td> < td>0.0-0.5</td> </tr> <tr> <td&gt ;NEUTROPHILS # (AUTO)</td> <td>11.2 T/MM3</td> <td >1.8-7.7</td> </tr> <tr> <td> LYMPHOCYTES # (AUTO)</td> <td>1.3 T/MM3</td> &lt ;td>1-4.8</td> </tr> <tr> <td> MONOCYTES #(AUTO)</td> <td>0.9 T/MM3</td> & lt;td>0-0.8</td></tr> <tr> <td> EOSINOPHILS # (AUTO)</td> <td>0.1 T/MM3</td> <td>0-0.5</td> </tr> <tr> <td> BASOPHILS # (AUTO)</td> <td>0.0 T/MM3</td> & lt;td>0-0.2</td> </tr> <tr> <td& gt;IMMATURE GRANULOCYTE # (AUTO)</td> <td>0.11 T/MM3</td > <td>0.00-0.03</td> </tr> <tr&gt ; <th colspan="10">L200.0050 - 02/13/17 14:07</th&gt ; </tr> <tr> <td>FUNGAL CULTURE.</td > <td>0.9 MG/DL</td> <td>0.7-1.2</td& gt; </tr> <tr> <td>FUNGAL CULTURE, BLOOD.</td> <td>33 RATIO</td> <td>6-26</ td> </tr> <tr> <td>NA - Sodium</ td> <td>146 MEQ/L</td> <td>134-144</td > </tr> <tr> <td>Potassium</td&gt ; <td>3.9 MEQ/L</td> <td>3.6-5</td> </tr> <tr> <td>Chloride</td> <td>105 MEQ/L</td> <td>98-107</td> </tr> <tr> <td>CO2 - Carbon Dioxide</td&gt ; <td>30 MEQ/L</td> <td>22-30</td> </tr> <tr> <td>Anion Gap</td> <td>11 MEQ/L</td> <td>5-15</td> </ tr> <tr> <td>BUN - Blood Urea Nitrogen</td> <td>30.0 MG/DL</td> <td>7-17</td> </ tr> <tr> <td>Glomerular Filtration Rate</td&gt ; <td>62 </td> <td>NRG</td> </tr&gt ; <tr> <td>Glucose</td> <td> 106 MG/DL</td> <td>65-110</td> </tr> & lt;tr> <td>Osmolality,Calculated</td> <td&gt ;287 MOSM/KG</td> <td>261-280</td> </tr&gt ; <tr> <td>Calcium</td> <td> 9.3 MG/DL</td> <td>8.4-10.2</td> </tr> <tr> <td>LICTERUS</td> <td>< 2 </td> <td>0-7</td> </tr> <tr > <td>LHEMOLYSIS</td> <td>< 15 &lt ;/td> <td>0-25</td> </tr> <tr&gt ; <td>LTURBIDITY</td> <td>36 </td> <td>0-20</td> </tr> <tr> & lt;thcolspan="10">L300.3490 - 02/13/17 14:07</th> < /tr> <tr> <td>Troponin I</td> < td>0.013 ng/ml</td> <td>0-0.12</td> </tr > <tr> <th colspan="10">L300.370 - 07/01 14:07</th> </tr> <tr> <td>B -Type Natriuretic Peptide</td> <td>203 pg/mL</td> <td>0-175</td> </tr> <tr> <th colspan="10">L200.005 - 02/13/17 15:48</th> & lt;/tr> <tr> <td>POTASSIUM</td> <td& gt;Urine, Clean Catch </td> <td>NRG</td> </ tr> <tr> <td>CHLORIDE</td> <td> YELLOW </td><td>YELLOW</td> </tr> <tr& gt; <td>ANION GAP</td> <td>SL CLOUDY </td > <td>NRG</td> </tr> <tr> <td>BLOOD UREA NITROGEN</td> <td>5.5 </td> <td>5.0-8.0</td> </tr> <tr> <td>BUN/CREATININE RATIO</td> <td>NEGATIVE </td& gt; <td>NEGATIVE</td> </tr> <tr> <td>GLUCOSE</td> <td>NEGATIVE </td> <td>NEGATIVE</td> </tr> <tr>< td>CALCIUM</td> <td>NEGATIVE </td> <td >NEGATIVE</td> </tr> <tr> <td> BILIRUBIN, CONJUG &amp; UNCONJUG</td> <td>NEGATIVE </td> <td>NEGATIVE</td> </tr> &lt ;tr> <td>TOTAL PROTEIN</td> <td>0-1 /HPF& lt;/td> <td>0-3</td> </tr> <tr&gt ; <td>ALBUMIN</td> <td>20-30 /HPF</td&gt ; <td>0-5</td></tr> <tr> <td >GLOBULIN</td> <td>Few </td> <td> NRG</td> </tr> <tr> <td>ALBUMIN/ GLOBULIN RATIO</td> <td>0-5 </td> <td> NRG</td> </tr> <tr> <td>CKMB</td> <td>3+ </td> <td>NEGATIVE</td> & lt;/tr> <tr> <td>GENTAMICIN,RANDOM</td> <td>Cult reflexed &setup </td> <td>NRG </td> </tr> <tr> <td>Specific [place],Urine</td> <td>1.015 </td> <td&gt ;1.015-1.025</td> </tr> <tr> <td> Leukocyte Esterase,Urine</td> <td>1+ </td> & lt;td>NEGATIVE</td> </tr> <tr> < td>Nitrate,Urine</td> <td>NEGATIVE </td> <td>NEGATIVE</td> </tr> <tr> < td>Urobilinogen,Urine</td> <td>0.2 EU/DL</td> <td>NORMAL</td> </tr> <tr> <td>Occult Blood,Urine - Dipstick</td> <td>1+ </td > <td>NEGATIVE</td> </tr> <tr> <th colspan="10">M120.010 - 02/13/17 15:48</th> </tr> <tr> <td>Urine Culture</td> <td> CFU/ml</td> <td>NRG</td> & lt;/tr> <tr> <th colspan="10"> L900.0530 - 02/13/17 18:20</th> </tr> <tr> <td>Glucometer</td> <td>124 mg/dL</td> <td>65-110</td> </tr> <tr> < th colspan="10">L900.05 - 02/13/17 20:31</th> </ tr> <tr> <td>Glucometer</td> < td>270 mg/dL</td> <td>65-110</td> </tr& gt; <tr> <th colspan="10">L300.34907/01 21:48</th> </tr> <tr> <td>Troponin I</td> <td>0.015 ng/ml</td> <td>0-0.12 </td> </tr> <tr> <td>LHEMOLYSIS& lt;/td> <td>< 15 </td> <td>0-25&lt ;/td> </tr> <tr> <th colspan="10& quot;>L100.0050 - 02/14/17 04:15</th> </tr> <tr& gt; <td>WBC - WHITE BLOOD COUNT</td> <td> 15.6 T/MM3</td> <td>4.5-11.0</td> </tr> <tr> <td>RED BLOOD COUNT</td> <td >4.10 M/MM3</td> <td>4.00-5.20</td> </tr > <tr> <td>HGB - HEMOGLOBIN</td> < td>11.4 GM/DL</td> <td>12-16</td> </tr& gt; <tr> <td>HCT - HEMATOCRIT</td> & lt;td>36.8 %</td> <td>36-46</td> & lt;/tr> <tr> <td>MEAN CORPUSCULAR VOLUME</td& gt; <td>89.8 UM3</td> <td>80-100</td> </tr> <tr> <td>MEAN CORPUSCULAR HGB&lt ;/td> <td>27.8 UUG</td> <td>26-34</td& gt; </tr> <tr> <td>MEAN CORPUSCULAR HGB CONC(MCHC</td> <td>31.0 GM/DL</td> <td&gt ;31-37</td> </tr> <tr> <td>RDW STANDARD DEVIATION</td> <td>54.1 FL</td> &lt ;td>36.9-50.2</td> </tr> <tr> <td >PLT - PLATELET COUNT</td> <td>338 T/MM3</td> <td>130-400</td> </tr> <tr> <td>MEAN PLATELET VOLUME</td> <td>9.9 UM3</td&gt ; <td>9.4-12.4</td> </tr> <tr> & lt;td>NEUTROPHILS % (AUTO)</td> <td>73.6 &# 37;</td> <td>33-66</td> </tr> &lt ;tr> <td>LYMPHOCYTES % (AUTO)</td> < td>17.7 %</td> <td>23-45</td> </ tr> <tr> <td>MONOCYTES % (AUTO)</td&gt ; <td>7.5 %</td> <td>0-9.0</td&gt ; </tr> <tr> <td>EOSINOPHILS % (AUTO)</td> <td>0.3 %</td> <td>0-4</ td> </tr> <tr> <td>BASOPHILS &# 37; (AUTO)</td> <td>0.2 %</td> < td>0-2</td> </tr> <tr> <td> IMMATURE GRANULOCYTE % (AUTO)</td> <td>0.7 % </td> <td>0.0-0.5</td> </tr> < tr> <td>NEUTROPHILS # (AUTO)</td> <td> 11.5 T/MM3</td> <td>1.8-7.7</td> </tr> <tr> <td>LYMPHOCYTES # (AUTO)</td> & lt;td>2.8 T/MM3</td> <td>1-4.8</td> </tr > <tr> <td>MONOCYTES # (AUTO)</td> <td >1.2 T/MM3</td> <td>0-0.8</td> </tr> <tr> <td>EOSINOPHILS # (AUTO)</td> & lt;td>0.1 T/MM3</td> <td>0-0.5</td> </tr> <tr> <td>BASOPHILS # (AUTO)</td> &lt ;td>0.0 T/MM3</td> <td>0-0.2</td> </tr& gt; <tr> <td>IMMATURE GRANULOCYTE # (AUTO)</td&gt ; <td>0.11 T/MM3</td> <td>0.00-0.03</td& gt; </tr> <tr> <th colspan="10"& gt;L200.0050 - 02/14/17 04:15</th> </tr> <tr> <td>FUNGAL CULTURE.</td> <td>1.0 MG/DL</td > <td>0.7-1.2</td> </tr> <tr> <td>FUNGAL CULTURE, BLOOD.</td> <td>34 RATIO</td> <td>6-26</td> </tr> & lt;tr> <td>NA - Sodium</td> <td>144 MEQ/L </td> <td>134-144</td> </tr> < tr> <td>Potassium</td> <td>4.3 MEQ/L</td& gt; <td>3.6-5</td> </tr> <tr> <td>Chloride</td> <td>104 MEQ/L</td> <td>98-107</td> </tr> <tr> <td>CO2 - Carbon Dioxide</td> <td>31 MEQ/L</td& gt; <td>22-30</td> </tr> <tr> <td>Anion Gap</td> <td>9 MEQ/L</td> <td>5-15</td> </tr><tr> <td> BUN - Blood Urea Nitrogen</td> <td>34.0 MG/DL</td> <td>7-17</td> </tr> <tr> <td>Glomerular Filtration Rate</td> <td>55 </td&gt ; <td>NRG</td> </tr> <tr> <td>Glucose</td> <td>99 MG/DL</td> <td>65-110</td> </tr> <tr> <td >Osmolality,Calculated</td> <td>285 MOSM/KG</td> <td>261-280</td> </tr> <tr> <td>Calcium</td> <td>9.3 MG/DL</td> < td>8.4-10.2</td> </tr> <tr> <td& gt;LICTERUS</td> <td>< 2 </td> <td >0-7</td> </tr> <tr> <td> LHEMOLYSIS</td> <td>< 15 </td> <td& gt;0-25</td> </tr> <tr> <td>LTURBIDITY& lt;/td> <td>< 20 </td> <td>0-20</td& gt; </tr> <tr> <th colspan="10"& gt;L900.0502/14/17 06:42</th> </tr> <tr> <td>Glucometer</td> <td>116 mg/dL</td> <td>65-110</td> </tr> <tr> <th colspan="10">L900.52902/14/17 12:03</th> </tr> <tr> <td>Glucometer</td> < td>163 mg/dL</td> <td>65-110</td> </tr& gt; <tr> <th colspan="10">L900.08/01 16:57</th> </tr> <tr> <td> Glucometer</td> <td>168 mg/dL</td> <td&gt ;65-110</td> </tr> <tr> <th colspan= "10">L900.52902/14/17 21:03</th> </tr> <tr><td>Glucometer</td> <td>158 mg/dL</td > <td>65-110</td> </tr> <tr> <th colspan="10">L100.0050 - 02/15/17 04:15</th> </tr> <tr> <td>WBC - WHITE BLOOD COUNT </td> <td>11.8 T/MM3</td> <td>4.5-11.0 </td></tr> <tr> <td>RED BLOOD COUNT</ td> <td>3.95 M/MM3</td> <td>4.00-5.20< /td> </tr> <tr> <td>HGB - HEMOGLOBIN</td& gt; <td>11.0 GM/DL</td> <td>12-16</td&gt ; </tr> <tr> <td>HCT - HEMATOCRIT</ td> <td>35.5 %</td> <td>36-46</td > </tr> <tr> <td>MEAN CORPUSCULAR VOLUME </td> <td>89.9 UM3</td> <td>80-100< /td> </tr> <tr> <td>MEAN CORPUSCULAR HGB</td> <td>27.8 UUG</td> < td>26-34</td> </tr> <tr> <td> MEAN CORPUSCULAR HGB CONC(MCHC</td> <td>31.0 GM/DL</td& gt; <td>31-37</td> </tr> <tr> <td>RDW STANDARD DEVIATION</td> <td>53.4 FL</td > <td>36.9-50.2</td> </tr> <tr&gt ; <td>PLT - PLATELET COUNT</td> <td>288 T/ MM3</td> <td>130-400</td> </tr> & lt;tr> <td>MEAN PLATELET VOLUME</td> <td>10.0 UM3</td> <td>9.4-12.4</td> </tr> <tr> <td>NEUTROPHILS % (AUTO)</td> & lt;td>74.8 %</td> <td>33-66</td> & lt;/tr> <tr> <td>LYMPHOCYTES % (AUTO)< /td> <td>15.7 %</td> <td>23-45&lt ;/td> </tr> <tr> <td>MONOCYTES & #37; (AUTO)</td> <td>8.2 %</td> < td>0-9.0</td> </tr> <tr> <td> EOSINOPHILS % (AUTO)</td><td>0.6 %</td> <td>0-4</td> </tr> <tr> < td>BASOPHILS % (AUTO)</td> <td>0.2 %< /td> <td>0-2</td> </tr> <tr> <td>IMMATURE GRANULOCYTE % (AUTO)</td> &lt ;td>0.5 %</td> <td>0.0-0.5</td> &lt ;/tr> <tr> <td>NEUTROPHILS # (AUTO)</td> <td>8.8 T/MM3</td> <td>1.8-7.7</td> </tr> <tr> <td>LYMPHOCYTES # (AUTO)</ td> <td>1.9 T/MM3</td> <td>1-4.8</td& gt; </tr> <tr> <td>MONOCYTES # (AUTO)& lt;/td> <td>1.0 T/MM3</td> <td>0-0.8</ td> </tr> <tr> <td>EOSINOPHILS # ( AUTO)</td> <td>0.1 T/MM3</td> <td>0-0.5& lt;/td> </tr> <tr> <td>BASOPHILS # ( AUTO)</td> <td>0.0 T/MM3</td> <td>0-0.2& lt;/td> </tr> <tr> <td>IMMATURE GRANULOCYTE # (AUTO)</td> <td>0.06 T/MM3</td> <td>0.00-0.03</td> </tr> <tr> <th colspan="10">L200.0050 -02/15/17 04:15</th> &lt ;/tr> <tr> <td>FUNGAL CULTURE.</td> <td>1.0 MG/DL</td> <td>0.7-1.2</td> & lt;/tr> <tr> <td>FUNGAL CULTURE, BLOOD.</td&gt ; <td>35 RATIO</td> <td>6-26</td> </tr> <tr> <td>NA - Sodium</td> <td>142 MEQ/L</td> <td>134-144</td> </tr> <tr> <td>Potassium</td> <td>4.4 MEQ/L</td> <td>3.6-5</td> &lt ;/tr> <tr><td>Chloride</td> <td>104 MEQ/L</td> <td>98-107</td> </tr> <tr> <td>CO2 - Carbon Dioxide</td> <td>30 MEQ/ L</td> <td>22-30</td> </tr> < tr> <td>Anion Gap</td> <td>8 MEQ/L</td > <td>5-15</td> </tr> <tr> <td>BUN - Blood Urea Nitrogen</td> <td>35.0 MG /DL</td> <td>7-17</td> </tr> < tr> <td>Glomerular Filtration Rate</td> <td& gt;55 </td> <td>NRG</td> </tr> & lt;tr> <td>Glucose</td> <td>121 MG/DL< /td> <td>65-110</td> </tr> <tr> <td>Osmolality,Calculated</td> <td>282 MOSM/KG& lt;/td> <td>261-280</td> </tr> < tr> <td>Calcium</td> <td>9.2 MG/DL</td&gt ; <td>8.4-10.2</td> </tr> <tr> <td>LICTERUS</td> <td>< 2 </td> <td>0-7</td> </tr> <tr> <td>LHEMOLYSIS</td> <td>< 15 </td> <td>0-25</td> </tr> <tr> & lt;td>LTURBIDITY</td> <td>< 20 </td> & lt;td>0-20</td> </tr> <tr> <th colspan="10">L200.1999 - 02/15/17 04:15</th> </tr& gt; <tr> <td>MAG - Magnesium</td> &lt ;td>2.2 MG/DL</td> <td>1.6-2.3</td> </tr > <tr> <th colspan="10">L200.6775 - 08/29 04:15</th> </tr> <tr> <td> HgbA1c - Hemoglobin A1C</td> <td>7.2 %</td> <td>6.1-7.9</td> </tr> <tr> <th colspan="10">L900.05 - 02/15/17 05:45</th> </tr> <tr> <td>Glucometer</td> <td>134 mg/dL</td> <td>65-110</td> </ tr> <tr> <th colspan="10">L900.05 - 02/15/17 11:42</th> </tr> <tr> <td& gt;Glucometer</td> <td>176 mg/dL</td> <td&gt ;65-110</td> </tr><tr> <th colspan="10 ">L900.0502/15/17 17:14</th> </tr> <tr > <td>Glucometer</td> <td>253 mg/dL</ td> <td>65-110</td> </tr> <tr&gt ; <th colspan="10">L900.0530 - 02/15/17 21:14</th&gt ; </tr> <tr> <td>Glucometer</td> <td>327 mg/dL</td> <td>65-110</td> </tr> <tr> <th colspan="10"> L300.0030 - 02/16/17 04:23</th> </tr> <tr> <td>FUNGAL CULTURE.</td> <td>1.1 MG/DL</td&gt ; <td>0.7-1.2</td> </tr> <tr> <td>FUNGAL CULTURE, BLOOD.</td> <td>40 RATIO& lt;/td> <td>6-26</td> </tr> <tr& gt; <td>NA - Sodium</td> <td>140 MEQ/L</ td> <td>134-144</td> </tr> <tr&gt ; <td>Potassium</td> <td>4.6 MEQ/L</td&gt ; <td>3.6-5</td> </tr> <tr> &lt ;td>Chloride</td> <td>101 MEQ/L</td> < td>98-107</td> </tr> <tr> <td> CO2 - Carbon Dioxide</td> <td>32 MEQ/L</td> < td>22-30</td> </tr> <tr> <td> Anion Gap</td> <td>7 MEQ/L</td> <td>5- 15</td> </tr> <tr> <td>BUN - Blood Urea Nitrogen</td> <td>44.0 MG/DL</td> <td>7-17</td> </tr> <tr> <td >Glomerular Filtration Rate</td> <td>49 </td> <td>NRG</td> </tr> <tr> &lt ;td>Glucose</td> <td>94 MG/DL</td> <td >65-110</td> </tr> <tr> <td> Osmolality,Calculated</td> <td>280 MOSM/KG</td> <td>261-280</td> </tr> <tr> & lt;td>Calcium</td> <td>9.7 MG/DL</td> &lt ;td>8.4-10.2</td> </tr> <tr> <td& gt;Phosphorus</td> <td>4.5 MG/DL</td> <td>2.5- 4.5</td> </tr> <tr> <td>Albumin Level</td> <td>3.6 G/DL</td> <td>3.5- 5.0</td> </tr> <tr> <td>LICTERUS& lt;/td> <td>< 2 </td> <td>0-7</ td> </tr> <tr> <td>LHEMOLYSIS</td> <td>< 15 </td> <td>0-25</td> </tr> <tr> <td>LTURBIDITY</td> <td>< 20 </td> <td>0-20</td> </tr> <tr> <th colspan="10"> L200.1999 - 02/16/17 04:23</th> </tr> <tr> <td>MAG - Magnesium</td> <td>2.2 MG/DL</td&gt ; <td>1.6-2.3</td> </tr> <tr> <th colspan="10">L900.0530 - 02/16/17 06:26</th> </tr> <tr> <td>Glucometer</td> & lt;td>105 mg/dL</td> <td>65-110</td> </tr> <tr> <th colspan="10">L900.0530 - 11:01</th> </tr> <tr> <td> Glucometer</td> <td>287 mg/dL</td> <td&gt ;65-110</td> </tr> <tr> <th colspan=& quot;10">L100.6375 - 02/17/17 09:55</th> </tr> <tr> <td>ESR - MK</td><td>80 MM/HR</td&gt ; <td>0-20</td> </tr> <tr> <th colspan="10">L300.7373 - 03/05/17 10:13</th> </tr> <tr> <td>MLTVZ6T-QO</td> <td>6.7 %</td> <td>6.1-7.9</td> </tr> <tr> <th colspan="10"> L749.1999 - 03/05/17 10:13</th> </tr> <tr><td >NA - Sodium - AMS</td> <td>138 mEq/L</td> <td>135-144</td> </tr> <tr> & lt;td>Potassium - AMS</td> <td>3.6 mEq/L</td> <td>3.5-5.2</td> </tr> <tr> <td&gt ;Chloride- AMS</td> <td>101 mEq/L</td> <td> 99-111</td> </tr> <tr> <td>CO2 - CarbonDioxide-AMS</td> <td>27 mEq/L</td> &lt ;td>22-31</td> </tr> <tr> <td> Anion Gap - AMS</td> <td>10 mEq/L</td> < td>3-20</td> </tr> <tr> <td> BUN - Blood Urea Nitrogen -AMS</td> <td>41 mg/dL</td&gt ; <td>10-20</td> </tr> <tr> <td>Creatinine - AMS</td> <td>0.88 mg/dL</td& gt; <td>0.57-1.11</td> </tr> <tr&gt ; <td>Glomerular Filtration Rate-AMS</td> <td& gt;> 60 mL/min</td> <td>>60</td> </tr> <tr> <td>Glucose - AMS</td> <td>163 mg/dL</td> <td>70-99</td> </tr& gt; <tr> <td>Calcium - AMS</td> < td>9.5 mg/dL</td> <td>8.4-10.2</td> </tr > <tr> <th colspan="10">L908.3066 - 10:13</th> </tr> <tr> <td> MAG - Magnesium - AMS</td><td>1.8 mg/dL</td> <td& gt;1.6-2.6</td> </tr> <tr> <th colspan="10">L908.3120 - 03/05/17 10:13</th> </tr& gt; <tr> <td>Triglycerides - AMS</td> <td>270 mg/dL</td> <td>0-149</td> < /tr> <tr> <td>Cholesterol - AMS</td> <td>250 mg/dL</td> <td>0-199</td> & lt;/tr> <tr> <td>HDL Cholesterol, Direct - AMS&lt ;/td> <td>45 mg/dL</td> <td>40-84</td& gt; </tr> <tr> <td>Cardiac Risk - Ratio - AMS& lt;/td> <td>5.6 </td> <td>0.0-5.0</td > </tr> <tr> <td>Non-HDL Cholesterol </td> <td>205 mg/dL</td> <td>0-159< /td> </tr> <tr> <td>LLDL-A</td&gt ; <td>151 mg/dL</td> <td>0-130</td> </tr> <tr> <td>LVLDL-A</td> <td>54 mg/dL</td> <td>0-28</td> </ tr> <tr> <th colspan="10">L100.6375 - 03/05/17 10:50</th> </tr> <tr> <td& gt;ESR - MK</td> <td>84 MM/HR</td> <td&gt ;0-20</td> </tr> <tr> <th colspan=& quot;10">B-TYPE NATRIURETIC PEPTIDE - 03/18/17 12:30</th> </ tr> <tr> <td>B-TYPE NATRIURETIC PEPTIDE</td&gt ; <td>22 pg/mL</td> <td>< 100</td& gt; </tr> <tr> <th colspan="10"& gt;CBC - 03/18/17 12:30</th> </tr> <tr> & lt;td>MEAN CELL HGB</td> <td>28.2 pg</td> & lt;td>27.0-33.0</td> </tr> <tr> < td>MEAN CELL HGB CONCENTRATION</td> <td>31.4 g/dL</td > <td>32.0-37.0</td> </tr> <tr&gt ; <td>MEAN CELL VOLUME</td> <td>89.7 fl</td> <td>80.0-100.0</td> </tr> <tr> <td>RED BLOOD CELL</td> <td>3.80 m/cumm</ td> <td>4.00-6.00</td> </tr> <tr> <td>RED CELL DISTRIBUTION WIDTH</td> <td> 16.1 %</td> <td>11.0-15.6</td> </tr > <tr> <td>WHITE BLOOD CELL</td> <td >15.3 k/cumm</td> <td>5.0-10.0</td> </tr > <tr> <td>HEMOGLOBIN</td> <td> 10.7 gm/dL</td> <td>12.0-16.0</td> </tr> <tr> <td>HEMATOCRIT</td> <td>34.1 & amp;#37;</td> <td>37.0-47.0</td> </tr> <tr> <td>PLATELET COUNT</td> <td>340 k /cumm</td> <td>150-450</td> </tr> <tr><th colspan="10">PROTHROMBIN TIME WITH INR - 12:30</th> </tr> <tr> <td> INTERNATIONAL NORMAL RATIO</td> <td>1.1 </td> <td>0.9-1.1</td> </tr> <tr> & lt;td>PROTHROMBIN TIME</td> <td>12.9 sec</td> <td>10.0-12.8</td> </tr> <tr> <th colspan="10">PARTIAL THROMBOPLASTIN TIME - 03/18/17 12: 30</th> </tr> <tr> <td>PARTIAL THROMBOPLASTIN TIME</td> <td>28 sec</td> &lt ;td>25-37</td> </tr> <tr> <th colspan="10">METABOLIC PANEL, COMPREHN - 03/18/17 12:30</th> </tr> <tr> <td>POTASSIUM</td> <td>4.6 mmol/L</td> <td>3.5-5.3</td> </tr> <tr> <td>EST GFR (MDRD)</td> <td>40 mL/min</td> <td>> 59</td&gt ; </tr> <tr> <td>ANION GAP</td> <td>10 mmol/L</td> <td>5-15</td> & lt;/tr> <tr> <td>GLUCOSE</td> < td>175 mg/dL</td> <td>70-99</td> </tr&gt ; <tr> <td>CALCIUM</td> <td>9.2 mg /dL</td> <td>8.5-10.1</td> </tr> <tr> <td>BLOOD UREA NITROGEN</td> <td> 35 mg/dL</td> <td>7-20</td> </tr> <tr> <td>CREATININE</td> <td>1.3 mg/ dL</td> <td>0.6-1.0</td> </tr> & lt;tr> <td>SODIUM</td> <td>138 mmol/L< /td> <td>135-148</td> </tr> <tr> <td>CHLORIDE</td> <td>101 mmol/L</td&gt ; <td>98-110</td> </tr> <tr> & lt;td>AST/SGOT</td> <td>14 Units/L</td> & lt;td>10-37</td> </tr> <tr> <td& gt;ALT/SGPT</td> <td>29 Units/L</td> <td&gt ;< 66</td> </tr> <tr> <td> CARBON DIOXIDE</td> <td>27 mmol/L</td> < td>21-32</td> </tr> <tr> <td> TOTAL PROTEIN</td> <td>7.5gm/dL</td> <td& gt;6.4-8.2</td> </tr> <tr><td>ALBUMIN</ td> <td>3.4 gm/dL</td> <td>3.4-5.0</td > </tr> <tr> <td>BILI TOTAL</td& gt; <td>0.3 mg/dL</td> <td>0.0-1.0</td&gt ; </tr> <tr> <td>ALKALINE PHOSPHATASE TOTAL </td> <td>46 IU/L</td><td>45-117</td> </tr> <tr> <th colspan="10"> MAGNESIUM - 03/18/17 12:30</th> </tr> <tr> <td>MAGNESIUM</td> <td>2.0 mg/dL</td> <td>1.8-2.4</td> </tr> <tr> &lt ;th colspan="10">THYROID STIM HORMONE (TSH) - 03/18/17 12:30</th > </tr> <tr> <td>THYROID STIM HORMONE (TSH)</td> <td>0.42 uIU/mL</td> < td>0.34-4.82</td> </tr> <tr> <th colspan="10">B-TYPE NATRIURETIC PEPTIDE - 03/18/17 12:30</th&gt ; </tr> <tr> <td>B-TYPE NATRIURETIC PEPTIDE</td> <td>22 pg/mL</td> <td>& amp;lt; 100</td> </tr> <tr> <th colspan="10">CBC - 03/18/17 12:30</th> </tr> <tr> <td>MEAN CELL HGB</td> <td> 28.2 pg</td> <td>27.0-33.0</td> </tr> <tr> <td>MEAN CELL HGB CONCENTRATION</td> <td>31.4 g/dL</td> <td>32.0-37.0</td> & lt;/tr> <tr> <td>MEAN CELL VOLUME</td> <td>89.7 fl</td> <td>80.0-100.0</td> </tr> <tr> <td>RED BLOOD CELL</td> <td>3.80 m/cumm</td> <td>4.00-6.00</td> </tr> <tr> <td>RED CELL DISTRIBUTION WIDTH</td& gt; <td>16.1 %</td> <td>11.0-15.6&lt ;/td> </tr> <tr> <td>WHITE BLOOD CELL</td> <td>15.3 k/cumm</td> <td>5.0 -10.0</td> </tr> <tr> <td> HEMOGLOBIN</td> <td>10.7 gm/dL</td> <td>12.0- 16.0</td> </tr><tr> <td>HEMATOCRIT</ td> <td>34.1 %</td> <td>37.0-47.0</ td> </tr> <tr> <td>PLATELETCOUNT< /td> <td>340 k/cumm</td> <td>150-450</ td> </tr> <tr> <th colspan="10"> PROTHROMBIN TIME WITH INR - 03/18/17 12:30</th> </tr> <tr> <td>INTERNATIONAL NORMAL RATIO</td> &lt ;td>1.1 </td> <td>0.9-1.1</td> </tr> <tr> <td>PROTHROMBIN TIME</td> < td>12.9 sec</td> <td>10.0-12.8</td> </tr > <tr> <th colspan="10">PARTIAL THROMBOPLASTIN TIME - 03/18/17 12:30</th> </tr> <tr > <td>PARTIAL THROMBOPLASTIN TIME</td> <td& gt;28 sec</td> <td>25-37</td> </tr> <tr> <th colspan="10">METABOLIC PANEL, COMPREHN - 03/18/17 12:30</th> </tr> <tr> <td>POTASSIUM</td> <td>4.6 mmol/L</td> <td>3.5-5.3</td> </tr> <tr> <td>EST GFR (MDRD)</td> <td>40 mL/min</td> <td>> 59</td> </tr> <tr> <td>ANION GAP</td> <td>10mmol/L</td> <td>5-15</td> </tr> <tr> <td>GLUCOSE</td> <td>175 mg/dL</td> & lt;td>70-99</td> </tr> <tr> <td& gt;CALCIUM</td> <td>9.2 mg/dL</td> <td&gt ;8.5-10.1</td> </tr> <tr><td>BLOOD UREA NITROGEN</td> <td>35 mg/dL</td> <td>7- 20</td> </tr> <tr> <td>CREATININE </td><td>1.3 mg/dL</td> <td>0.6-1.0</td> </tr> <tr> <td>SODIUM</td> <td>138 mmol/L</td> <td>135-148</td> </tr> <tr> <td>CHLORIDE</td> < td>101 mmol/L</td> <td>98-110</td> </tr& gt; <tr> <td>AST/SGOT</td> <td> 14 Units/L</td> <td>10-37</td> </tr> <tr> <td>ALT/SGPT</td> <td>29 Units /L</td> <td>< 66</td> </tr> <tr> <td>CARBON DIOXIDE</td> <td>27 mmol/L</td> <td>21-32</td> </tr> <tr> <td>TOTAL PROTEIN</td> <td>7.5 gm /dL</td> <td>6.4-8.2</td> </tr> <tr& gt; <td>ALBUMIN</td> <td>3.4 gm/dL</td&gt ; <td>3.4-5.0</td> </tr> <tr> <td>BILI TOTAL</td> <td>0.3 mg/dL</td> <td>0.0-1.0</td> </tr> <tr> <td>ALKALINE PHOSPHATASE TOTAL</td> <td>46 IU/L</td& gt; <td>45-117</td> </tr> <tr> <th colspan="10">MAGNESIUM - 03/18/17 12:30</th> </tr> <tr> <td>MAGNESIUM</td> <td>2.0 mg/dL</td> <td>1.8-2.4</td> </tr> <tr> <th colspan="10"> THYROID STIM HORMONE (TSH) - 03/18/17 12:30</th> </tr> <tr> <td>THYROID STIM HORMONE (TSH)</td> & lt;td>0.42 uIU/mL</td> <td>0.34-4.82</td> & lt;/tr> <tr> <th colspan="10">GLUCOSE ( POC) - 03/18/17 18:06</th> </tr> <tr> & lt;td>GLUCOSE (POC)</td> <td>246 mg/dL</td> <td>70-99</td> </tr> <tr> &lt ;th colspan="10">GLUCOSE (POC) - 03/18/17 18:06</th> & lt;/tr> <tr> <td>GLUCOSE (POC)</td> <td>246 mg/dL</td> <td>70-99</td> </tr& gt; <tr> <th colspan="10">GLUCOSE (POC) - 03/18/17 21:08</th> </tr> <tr> <td& gt;GLUCOSE (POC)</td> <td>222 mg/dL</td> <td&gt ;70-99</td> </tr> <tr> <th colspan=& quot;10">GLUCOSE (POC) - 03/18/17 21:08</th> </tr> <tr> <td>GLUCOSE (POC)</td> <td> 222 mg/dL</td> <td>70-99</td> </tr> <tr> <th colspan="10">GLUCOSE (POC) - 22:27</th> </tr> <tr> <td> GLUCOSE (POC)</td> <td>143 mg/dL</td> <td >70-99</td> </tr> <tr> <th colspan="10">GLUCOSE (POC) - 03/18/17 22:27</th> </ tr> <tr> <td>GLUCOSE (POC)</td> & lt;td>143 mg/dL</td> <td>70-99</td> </tr> <tr> <th colspan="10">PROTHROMBIN TIME WITH INR- 03/19/17 06:08</th> </tr> <tr> <td>INTERNATIONAL NORMAL RATIO</td> <td>1.1 </ td> <td>0.9-1.1</td></tr> <tr> <td>PROTHROMBIN TIME</td> <td>13.0sec</td> <td>10.0-12.8</td> </tr> <tr>&lt ;th colspan="10">METABOLIC PANEL, COMPREHN - 03/19/17 06:08</th& gt; </tr> <tr> <td>POTASSIUM</td&gt ; <td>4.4 mmol/L</td> <td>3.5-5.3</td&gt ; </tr> <tr> <td>ESTGFR (MDRD)</td& gt; <td>40 mL/min</td> <td>> 59</ td> </tr> <tr> <td>ANION GAP</td& gt; <td>9mmol/L</td> <td>5-15</td> </tr> <tr> <td>EST CrCl (CG)</td> <td>55 mL/min</td> <td>>59</td&gt ; </tr> <tr> <td>GLUCOSE</td> <td>103 mg/dL</td> <td>70-99</td> </tr> <tr> <td>CALCIUM</td> & lt;td>9.2 mg/dL</td> <td>8.5-10.1</td> < /tr> <tr> <td>BLOOD UREA NITROGEN</td> <td>39 mg/dL</td> <td>7-20</td> & lt;/tr> <tr> <td>CREATININE</td> <td& gt;1.3 mg/dL</td> <td>0.6-1.0</td> </tr> & lt;tr> <td>SODIUM</td> <td>139 mmol/L< /td> <td>135-148</td> </tr> <tr&gt ; <td>CHLORIDE</td> <td>102 mmol/L</td&gt ; <td>98-110</td> </tr> <tr> <td>AST/SGOT</td> <td>13 Units/L</td> <td>10-37</td> </tr> <tr> < td>ALT/SGPT</td> <td>26 Units/L</td> < td>< 66</td> </tr> <tr> < td>CARBON DIOXIDE</td> <td>28 mmol/L</td> <td>21-32</td> </tr> <tr> <td& gt;TOTAL PROTEIN</td> <td>6.9 gm/dL</td> &lt ;td>6.4-8.2</td> </tr> <tr> <td> ALBUMIN</td> <td>3.1 gm/dL</td> <td> 3.4-5.0</td> </tr> <tr> <td>BILI TOTAL</td> <td>0.4 mg/dL</td> <td>0.0- 1.0</td> </tr> <tr> <td>ALKALINE PHOSPHATASE TOTAL</td> <td>42 IU/L</td> <td>45 -117</td> </tr> <tr> <th colspan=& quot;10">MAGNESIUM - 03/19/17 06:08</th> </tr> <tr> <td>MAGNESIUM</td> <td>2.1 mg/ dL</td> <td>1.8-2.4</td> </tr> < tr> <th colspan="10">CBC W/DIFF - 03/19/17 06:08< /th> </tr> <tr> <td>EOSINOPHIL #< /td> <td>0.1 k/cumm</td> <td>0.1-0.5</td&gt ; </tr> <tr> <td>EOSINOPHIL %& lt;/td> <td>1 %</td> <td>2-4</ td> </tr> <tr> <td>GRANULOCYTE #< /td> <td>9.0 k/cumm</td> <td>2.0-9.0</ td> </tr> <tr> <td>GRANULOCYTE %&lt ;/td> <td>72 %</td> <td>50-75< /td> </tr> <tr> <td>LYMPHOCYTE #</td& gt; <td>2.2 k/cumm</td> <td>1.0-4.0</td& gt; </tr> <tr> <td>LYMPHOCYTE % </td> <td>18 %</td> <td>20-30& lt;/td> </tr> <tr> <td>MEAN CELL HGB </td> <td>28.0 pg</td> <td>27.0-33.0& lt;/td> </tr> <tr> <td>MEAN CELL HGB CONCENTRATION</td> <td>30.8 g/dL</td> & lt;td>32.0-37.0</td> </tr> <tr> < td>MEAN CELL VOLUME</td> <td>91.0 fl</td> &lt ;td>80.0-100.0</td> </tr> <tr> <td> MONOCYTE #</td> <td>1.2 k/cumm</td> <td>0.1- 1.0</td> </tr> <tr> <td>MONOCYTE %</td> <td>9 %</td> <td& gt;4-6</td> </tr> <tr> <td>RED BLOOD CELL</td> <td>3.57 m/cumm</td> <td& gt;4.00-6.00</td> </tr> <tr> <td> RED CELL DISTRIBUTION WIDTH</td> <td>16.2 %</td& gt; <td>11.0-15.6</td> </tr> <tr> <td>WHITE BLOOD CELL</td> <td>12.5 k/cumm</td&gt ; <td>5.0-10.0</td> </tr> <tr> <td>HEMOGLOBIN</td> <td>10.0 gm/dL</td> <td>12.0-16.0</td> </tr> <tr> <td>HEMATOCRIT</td> <td>32.5 %</td> <td>37.0-47.0</td> </tr> <tr> <td>PLATELET COUNT</td> <td>307 k/cumm</td> <td>150-450</td> </tr> <tr> <th colspan="10">PROTHROMBIN TIME WITH INR - 03/19/17 06:08 </th> </tr> <tr> <td> INTERNATIONAL NORMAL RATIO</td> <td>1.1 </td> & lt;td>0.9-1.1</td> </tr> <tr> <td >PROTHROMBIN TIME</td> <td>13.0 sec</td> <td&gt ;10.0-12.8</td> </tr> <tr> <th colspan="10">METABOLIC PANEL, COMPREHN - 03/19/17 06:08</th> </tr> <tr> <td>POTASSIUM</td> <td>4.4 mmol/L</td> <td>3.5-5.3</td> </tr> <tr> <td>EST GFR (MDRD)</td> <td>40 mL/min</td> <td>> 59</td&gt ; </tr> <tr> <td>ANION GAP</td> <td>9 mmol/L</td> <td>5-15</td> </tr > <tr> <td>EST CrCl (CG)</td> < td>55 mL/min</td> <td>> 59</td> < /tr> <tr> <td>GLUCOSE</td> <td& gt;103 mg/dL</td> <td>70-99</td> </tr> <tr> <td>CALCIUM</td> <td>9.2 mg/dL</td> <td>8.5-10.1</td></tr> <tr > <td>BLOOD UREA NITROGEN</td> <td>39 mg/ dL</td> <td>7-20</td> </tr> < tr> <td>CREATININE</td> <td>1.3 mg/dL< /td> <td>0.6-1.0</td> </tr> <tr& gt; <td>SODIUM</td> <td>139 mmol/L</td&gt ; <td>135-148</td> </tr> <tr> <td>CHLORIDE</td> <td>102 mmol/L</td> <td>98-110</td> </tr> <tr> <td >AST/SGOT</td> <td>13 Units/L</td> <td >10-37</td> </tr> <tr> <td>ALT/ SGPT</td> <td>26 Units/L</td> <td>&amp ;lt; 66</td> </tr> <tr> <td> CARBON DIOXIDE</td> <td>28 mmol/L</td> < td>21-32</td> </tr> <tr> <td>TOTAL PROTEIN</td> <td>6.9 gm/dL</td> <td>6.4-8.2 </td> </tr> <tr> <td>ALBUMIN</ td> <td>3.1 gm/dL</td> <td>3.4-5.0</td > </tr> <tr> <td>BILI TOTAL</td& gt; <td>0.4 mg/dL</td> <td>0.0-1.0</td&gt ; </tr> <tr> <td>ALKALINE PHOSPHATASE TOTAL</td> <td>42 IU/L</td> <td>45-117 </td> </tr> <tr> <th colspan=" 10">MAGNESIUM - 03/19/17 06:08</th> </tr> < tr> <td>MAGNESIUM</td> <td>2.1 mg/dL</td > <td>1.8-2.4</td> </tr> <tr> <th colspan="10">CBC W/DIFF - 03/19/17 06:08</th></ tr> <tr> <td>EOSINOPHIL #</td> &lt ;td>0.1 k/cumm</td> <td>0.1-0.5</td> </ tr> <tr> <td>EOSINOPHIL %</td> <td>1 %</td> <td>2-4</td> </tr> <tr> <td>GRANULOCYTE #</td> < td>9.0 k/cumm</td> <td>2.0-9.0</td> </tr > <tr> <td>GRANULOCYTE %</td> <td>72 %</td> <td>50-75</td> </tr> <tr> <td>LYMPHOCYTE #</td> <td>2.2 k/cumm</td> <td>1.0-4.0</td> &lt ;/tr> <tr> <td>LYMPHOCYTE %</td> <td>18 %</td> <td>20-30</td> </tr> <tr> <td>MEAN CELL HGB</td> <td>28.0 pg</td> <td>27.0-33.0</td> </tr> <tr> <td>MEAN CELL HGB CONCENTRATION& lt;/td> <td>30.8 g/dL</td> <td>32.0-37.0& lt;/td> </tr> <tr> <td>MEAN CELL VOLUME</td> <td>91.0 fl</td> <td>80.0- 100.0</td> </tr> <tr> <td> MONOCYTE #</td> <td>1.2 k/cumm</td> <td& gt;0.1-1.0</td> </tr> <tr> <td> MONOCYTE %</td> <td>9 %</td> <td& gt;4-6</td> </tr> <tr> <td>RED BLOOD CELL</td> <td>3.57 m/cumm</td><td>4.00- 6.00</td> </tr> <tr> <td>RED CELL DISTRIBUTION WIDTH</td> <td>16.2 %</td> <td>11.0-15.6</td> </tr> <tr> <td>WHITE BLOOD CELL</td> <td>12.5 k/cumm</td> <td>5.0-10.0</td> </tr> <tr> <td>HEMOGLOBIN</td> <td>10.0 gm/dL</td> <td>12.0-16.0</td> </tr> <tr> <td>HEMATOCRIT</td> <td>32.5 %</td& gt; <td>37.0-47.0</td> </tr> <tr&gt ; <td>PLATELET COUNT</td> <td>307 k/cumm< /td> <td>150-450</td> </tr> <tr& gt; <th colspan="10">GLUCOSE (POC) - 03/19/17 06:26< /th> </tr> <tr> <td>GLUCOSE (POC)&lt ;/td> <td>110 mg/dL</td> <td>70-99</td > </tr> <tr> <th colspan="10" >GLUCOSE (POC) - 03/19/17 06:26</th> </tr> <tr& gt; <td>GLUCOSE (POC)</td> <td>110 mg/dL< /td> <td>70-99</td> </tr> <tr&gt ; <th colspan="10">GLUCOSE (POC) - 03/19/17 11:07</ th> </tr> <tr> <td>GLUCOSE (POC)< /td> <td>143 mg/dL</td> <td>70-99</td& gt; </tr> <tr> <th colspan="10"> GLUCOSE (POC) - 03/19/17 11:07</th> </tr> <tr> <td>GLUCOSE (POC)</td> <td>143 mg/dL</td> <td>70-99</td> </tr> <tr> <th colspan="10">B-TYPE NATRIURETIC PEPTIDE - 04/02/17 15:09& lt;/th> </tr> <tr> <td>B-TYPE NATRIURETIC PEPTIDE</td> <td>27 pg/mL</td> & lt;td>< 100</td> </tr> <tr> <th colspan="10">CBC - 04/02/17 15:09</th> </tr> <tr> <td>MEAN CELL HGB</td> <td> 28.2 pg</td> <td>27.0-33.0</td> </tr> <tr> <td>MEAN CELL HGB CONCENTRATION</td> <td>31.8 g/dL</td> <td>32.0-37.0</td> </tr> <tr> <td>MEAN CELL VOLUME</td> <td>88.4 fl</td> <td>80.0-100.0</td> </tr> <tr> <td>RED BLOOD CELL</td> <td>3.80 m/cumm</td> <td>4.00-6.00</td&gt ; </tr> <tr> <td>RED CELL DISTRIBUTIONWIDTH</td> <td>16.3 %</td> <td>11.0-15.6</td> </tr> <tr> <td>WHITE BLOOD CELL</td> <td>10.4 k/cumm</td&gt ; <td>5.0-10.0</td> </tr> <tr> <td>HEMOGLOBIN</td> <td>10.7 gm/dL</td&gt ; <td>12.0-16.0</td> </tr> <tr> <td>HEMATOCRIT</td> <td>33.6 %</td& gt; <td>37.0-47.0</td> </tr> <tr&gt ; <td>PLATELET COUNT</td> <td>293 k/cumm< /td> <td>150-450</td> </tr> <tr& gt; <th colspan="10">PROTHROMBIN TIME WITH INR - 15:09</th> </tr><tr> <td> INTERNATIONAL NORMAL RATIO</td> <td>1.2 </td> <td>0.9-1.1</td> </tr> <tr> & lt;td>PROTHROMBIN TIME</td> <td>13.2 sec</td> <td>10.0-12.8</td> </tr> <tr> <th colspan="10">PARTIAL THROMBOPLASTIN TIME - 04/02/17 15: 09</th> </tr> <tr> <td>PARTIAL THROMBOPLASTIN TIME</td> <td>26 sec</td> &lt ;td>25-37</td> </tr> <tr> <th colspan="10">METABOLIC PANEL, COMPREHN - 04/02/17 15:09</th> </tr> <tr> <td>POTASSIUM</td> <td>4.3 mmol/L</td> <td>3.5-5.3</td> </tr> <tr> <td>EST GFR (MDRD)</td&gt ; <td>40 mL/min</td> <td>> 59</td& gt; </tr> <tr> <td>ANION GAP</td&gt ; <td>7 mmol/L</td> <td>5-15</td> </tr> <tr> <td>EST CrCl (CG)</td> <td>56 mL/min</td> <td>> 59</td> </tr> <tr> <td>GLUCOSE</td> <td>148 mg/dL</td> <td>70-99</td> </ tr> <tr> <td>CALCIUM</td> <td& gt;9.7 mg/dL</td> <td>8.5-10.1</td> </tr&gt ; <tr> <td>BLOOD UREA NITROGEN</td> &lt ;td>51 mg/dL</td> <td>7-20</td> </tr&gt ; <tr> <td>CREATININE</td> <td> 1.3 mg/dL</td> <td>0.6-1.0</td> </tr> & lt;tr> <td>SODIUM</td> <td>136 mmol/L< /td> <td>135-148</td> </tr> <tr& gt; <td>CHLORIDE</td> <td>100 mmol/L</td& gt; <td>98-110</td> </tr> <tr> <td>AST/SGOT</td> <td>13 Units/L</td> <td>10-37</td> </tr> <tr> < td>ALT/SGPT</td> <td>28 Units/L</td> < td>< 66</td> </tr> <tr> < td>CARBON DIOXIDE</td> <td>29 mmol/L</td> <td>21-32</td> </tr> <tr> < td>TOTAL PROTEIN</td> <td>7.1 gm/dL</td> <td>6.4-8.2</td> </tr> <tr> < td>ALBUMIN</td> <td>3.3gm/dL</td> <td& gt;3.4-5.0</td> </tr> <tr><td>BILI TOTAL& lt;/td> <td>0.4 mg/dL</td> <td>0.0-1.0&lt ;/td> </tr> <tr> <td>ALKALINE PHOSPHATASE TOTAL</td> <td>39 IU/L</td> < td>45-117</td> </tr> <tr> <th colspan=& quot;10">MAGNESIUM - 04/02/17 15:09</th> </tr> <tr> <td>MAGNESIUM</td> <td>1.9 mg/ dL</td> <td>1.8-2.4</td> </tr> & lt;tr> <th colspan="10">THYROID STIM HORMONE (TSH) - 04/02/17 15:09</th> </tr> <tr> <td> THYROID STIM HORMONE (TSH)</td> <td>0.87 uIU/mL</td> <td>0.34-4.82</td> </tr> <tr> <th colspan="10">B-TYPE NATRIURETIC PEPTIDE - 04/02/17 15:09</th> </tr> <tr> <td>B-TYPE NATRIURETIC PEPTIDE</td> <td>27pg/mL</td> & lt;td>< 100</td> </tr> <tr> < th colspan="10">CBC - 04/02/17 15:09</th> </tr> <tr> <td>MEAN CELL HGB</td> <td& gt;28.2 pg</td> <td>27.0-33.0</td> </tr&gt ; <tr> <td>MEAN CELL HGB CONCENTRATION</td> <td>31.8 g/dL</td> <td>32.0-37.0</td> </tr> <tr> <td>MEAN CELL VOLUME</td& gt; <td>88.4 fl</td> <td>80.0-100.0</td& gt; </tr> <tr> <td>RED BLOOD CELL</td& gt; <td>3.80 m/cumm</td> <td>4.00-6.00</ td> </tr> <tr> <td>RED CELL DISTRIBUTION WIDTH</td> <td>16.3 %</td> <td>11.0-15.6</td> </tr> <tr> <td>WHITE BLOOD CELL</td> <td>10.4 k/cumm</td& gt; <td>5.0-10.0</td> </tr> <tr> <td>HEMOGLOBIN</td> <td>10.7 gm/dL</td& gt; <td>12.0-16.0</td> </tr> <tr&gt ; <td>HEMATOCRIT</td> <td>33.6 %</ td> <td>37.0-47.0</td> </tr> <tr& gt; <td>PLATELET COUNT</td> <td>293 k/cumm& lt;/td> <td>150-450</td> </tr> < tr> <th colspan="10">PROTHROMBIN TIME WITH INR - 15:09</th> </tr> <tr> <td> INTERNATIONAL NORMAL RATIO</td> <td>1.2 </td> <td>0.9-1.1</td> </tr> <tr> & lt;td>PROTHROMBIN TIME</td> <td>13.2 sec</td> <td>10.0-12.8</td> </tr> <tr> <th colspan="10">PARTIAL THROMBOPLASTIN TIME - 04/02/17 15: 09</th> </tr> <tr> <td>PARTIAL THROMBOPLASTIN TIME</td> <td>26 sec</td> &lt ;td>25-37</td> </tr> <tr> <th colspan="10">METABOLIC PANEL, COMPREHN - 04/02/17 15:09</th> </tr> <tr> <td>POTASSIUM</td> <td>4.3 mmol/L</td> <td>3.5-5.3</td> </tr> <tr> <td>EST GFR (MDRD)</td&gt ; <td>40 mL/min</td> <td>> 59</td& gt; </tr> <tr> <td>ANION GAP</td&gt ; <td>7 mmol/L</td> <td>5-15</td> </tr> <tr> <td>EST CrCl (CG)</td> <td>56 mL/min</td> <td>> 59</td> </tr> <tr> <td>GLUCOSE</td> <td>148 mg/dL</td> <td>70-99</td> &lt ;/tr> <tr> <td>CALCIUM</td> <td >9.7 mg/dL</td> <td>8.5-10.1</td> </tr& gt; <tr> <td>BLOOD UREA NITROGEN</td> <td>51 mg/dL</td> <td>7-20</td> </tr& gt; <tr> <td>CREATININE</td> <td&gt ;1.3 mg/dL</td> <td>0.6-1.0</td> </tr> <tr> <td>SODIUM</td> <td>136 mmol/L& lt;/td><td>135-148</td> </tr> <tr> <td>CHLORIDE</td> <td>100 mmol/L</td> <td>98-110</td> </tr> <tr> <td>AST/SGOT</td> <td>13 Units/L</td> < td>10-37</td> </tr> <tr> <td> ALT/SGPT</td> <td>28 Units/L</td> <td> < 66</td> </tr> <tr> <td> CARBON DIOXIDE</td> <td>29 mmol/L</td> < td>21-32</td> </tr> <tr> <td> TOTAL PROTEIN</td> <td>7.1 gm/dL</td> <td >6.4-8.2</td> </tr> <tr> <td> ALBUMIN</td> <td>3.3 gm/dL</td> <td> 3.4-5.0</td> </tr> <tr> <td>BILI TOTAL< /td> <td>0.4 mg/dL</td> <td>0.0-1.0</ td> </tr> <tr> <td>ALKALINE PHOSPHATASE TOTAL</td> <td>39 IU/L</td> < td>45-117</td> </tr> <tr> <th colspan= "10">MAGNESIUM - 04/02/17 15:09</th></tr> <tr > <td>MAGNESIUM</td> <td>1.9 mg/dL</td > <td>1.8-2.4</td> </tr> <tr> <th colspan="10">THYROID STIM HORMONE (TSH) - 15:09</th> </tr> <tr> <td> THYROID STIM HORMONE (TSH)</td> <td>0.87 uIU/mL</td> <td>0.34-4.82</td> </tr> <tr> <th colspan="10">GLUCOSE (POC) - 04/02/17 15:10</th& gt; </tr> <tr> <td>GLUCOSE (POC)</td > <td>158 mg/dL</td> <td>70-99</td> </tr> <tr> <th colspan="10">GLUCOSE (POC) - 04/02/17 15:10</th> </tr> <tr> <td>GLUCOSE (POC)</td> <td>158 mg/dL</td> <td>70-99</td> </tr> <tr> & lt;th colspan="10">GLUCOSE (POC) - 04/02/17 22:17</th> </tr> <tr> <td>GLUCOSE (POC)</td> <td>148 mg/dL</td> <td>70-99</td> </tr> <tr> <th colspan="10">GLUCOSE ( POC) - 04/02/17 22:17</th> </tr> <tr> &lt ;td>GLUCOSE (POC)</td> <td>148 mg/dL</td> <td>70-99</td> </tr> <tr><th colspan= "10">ARTERIAL BLOOD GAS - 04/03/17 04:40</th> </tr& gt; <tr> <td>ABG BASE EXCESS</td> <td >-4.2 meq/L</td> <td>-3.0-3.0</td> </tr& gt; <tr> <td>ABGBICARBONATE</td> < td>23.0 meq/L</td> <td>23.0-28.0</td> </ tr> <tr> <td>ABG PCO2</td> <td& gt;52mm Hg</td> <td>34-45</td> </tr> <tr> <td>ABG PH</td> <td>7.27 &lt ;/td> <td>7.35-7.45</td> </tr> < tr> <td>ABG PO2</td> <td>142 mm Hg</td > <td>75-100</td> </tr> <tr> <td>ABG O2 SATURATION</td> <td>99 %& lt;/td> <td>93-100</td> </tr> <tr > <th colspan="10">ARTERIAL BLOOD GAS - 04/03/17 04: 40</th> </tr> <tr> <td>ABG BASE EXCESS</td> <td>-4.2 meq/L</td> <td>- 3.0-3.0</td> </tr> <tr> <td>ABG BICARBONATE</td> <td>23.0 meq/L</td> <td& gt;23.0-28.0</td> </tr> <tr> <td> ABG PCO2</td> <td>52 mm Hg</td> <td>34 -45</td> </tr> <tr> <td>ABG PH&lt ;/td> <td>7.27 </td> <td>7.35-7.45</td > </tr> <tr> <td>ABG PO2</td> <td>142 mm Hg</td> <td>75-100</td> </tr> <tr> <td>ABG O2 SATURATION</td&gt ; <td>99 %</td> <td>93-100</td> </tr> <tr> <th colspan="10">METABOLIC PANEL, BASIC - 04/03/17 04:47</th> </tr> <tr> <td>POTASSIUM</td> <td>6.4 mmol/L</td> <td>3.5-5.3</td> </tr> <tr> & lt;td>EST GFR (MDRD)</td> <td>18 mL/min</td> <td>> 59</td> </tr> <tr> <td>ANION GAP</td> <td>9 mmol/L</td> <td>5-15</td> </tr> <tr> <td& gt;EST CrCl (CG)</td> <td>28 mL/min</td> &lt ;td>> 59</td> </tr> <tr> < td>GLUCOSE</td> <td>203 mg/dL</td> <td >70-99</td> </tr> <tr> <td> CALCIUM</td> <td>8.7 mg/dL</td> <td>8.5-10.1 </td> </tr> <tr> <td>BLOOD UREANITROGEN</td> <td>61 mg/dL</td> <td& gt;7-20</td></tr> <tr> <td>CREATININE&lt ;/td> <td>2.6 mg/dL</td> <td>0.6-1.0</ td> </tr> <tr> <td>SODIUM</td&gt ; <td>135 mmol/L</td> <td>135-148</td&gt ; </tr> <tr> <td>CHLORIDE</td> <td>101 mmol/L</td> <td>98-110</td> </tr> <tr> <td>CARBON DIOXIDE</td> <td>25 mmol/L</td> <td>21-32</td> </tr> <tr> <th colspan="10">CBC W /DIFF - 04/03/17 04:47</th> </tr> <tr> <td>GRANULOCYTE #</td> <td>16.8 k/cumm</td> <td>2.0-9.0</td> </tr> <tr> <td>GRANULOCYTE %</td> <td>85 %&lt ;/td> <td>50-75</td> </tr> <tr&gt ; <td>LYMPHOCYTE #</td> <td>0.9 k/cumm</ td> <td>1.0-4.0</td> </tr> <tr&gt ; <td>LYMPHOCYTE %</td> <td>5 %&lt ;/td> <td>20-30</td> </tr> <tr&gt ; <td>MEAN CELL HGB</td> <td>28.1 pg</td& gt; <td>27.0-33.0</td> </tr> <tr&gt ; <td>MEAN CELL HGB CONCENTRATION</td> <td> 30.6 g/dL</td> <td>32.0-37.0</td> </tr> <tr> <td>MEAN CELL VOLUME</td> < td>91.7 fl</td> <td>80.0-100.0</td> </tr > <tr> <td>MONOCYTE #</td> <td& gt;2.0 k/cumm</td> <td>0.1-1.0</td> </tr&gt ; <tr> <td>MONOCYTE %</td> & lt;td>10 %</td> <td>4-6</td> </ tr> <tr> <td>RED BLOOD CELL</td> & lt;td>3.60 m/cumm</td> <td>4.00-6.00</td> & lt;/tr> <tr> <td>RED CELL DISTRIBUTION WIDTH</ td> <td>16.6 %</td> <td>11.0-15.6 </td> </tr> <tr> <td>WHITE BLOOD CELL</td> <td>19.8 k/cumm</td> <td>5.0 -10.0</td> </tr> <tr> <td> HEMOGLOBIN</td> <td>10.1 gm/dL</td> <td& gt;12.0-16.0</td> </tr> <tr> <td> HEMATOCRIT</td> <td>33.0 %</td> < td>37.0-47.0</td> </tr> <tr> <td& gt;PLATELET COUNT</td> <td>369 k/cumm</td> & lt;td>150-450</td> </tr> <tr> <th colspan="10">METABOLIC PANEL, BASIC - 04/03/17 04:47</th> </tr> <tr> <td>POTASSIUM</td> <td>6.4 mmol/L</td> <td>3.5-5.3</td> </tr> <tr> <td>EST GFR (MDRD)</td> <td>18 mL/min</td> <td>> 59</td&gt ; </tr> <tr> <td>ANION GAP</td> <td>9 mmol/L</td> <td>5-15</td> </tr> <tr> <td>EST CrCl (CG)</td> & lt;td>28 mL/min</td> <td>> 59</td> & lt;/tr> <tr> <td>GLUCOSE</td> <td> 203 mg/dL</td> <td>70-99</td> </tr> <tr> <td>CALCIUM</td> <td>8.7 mg/ dL</td> <td>8.5-10.1</td> </tr> & lt;tr> <td>BLOOD UREA NITROGEN</td> <td> 61 mg/dL</td> <td>7-20</td> </tr> <tr> <td>CREATININE</td> <td>2.6 mg/dL </td> <td>0.6-1.0</td> </tr> <tr& gt; <td>SODIUM</td> <td>135 mmol/L</td&gt ; <td>135-148</td> </tr> <tr> <td>CHLORIDE</td> <td>101 mmol/L</td> <td>98-110</td> </tr> <tr> <td>CARBON DIOXIDE</td> <td>25 mmol/L</td> <td>21-32</td> </tr> <tr> &lt ;th colspan="10">CBC W/DIFF - 04/03/17 04:47</th> < /tr> <tr> <td>GRANULOCYTE #</td> <td&gt ;16.8 k/cumm</td> <td>2.0-9.0</td> </tr&gt ; <tr> <td>GRANULOCYTE %</td> <td>85 %</td> <td>50-75</td> & lt;/tr> <tr> <td>LYMPHOCYTE #</td> <td>0.9 k/cumm</td> <td>1.0-4.0</td> </ tr> <tr> <td>LYMPHOCYTE %</td> <td>5 %</td> <td>20-30</td> </tr> <tr> <td>MEAN CELL HGB</td> <td>28.1 pg</td> <td>27.0-33.0</td> & lt;/tr> <tr> <td>MEAN CELL HGB CONCENTRATION</ td> <td>30.6 g/dL</td> <td>32.0-37.0</ td> </tr> <tr> <td>MEAN CELL VOLUME& lt;/td> <td>91.7 fl</td> <td>80.0-100.0& lt;/td> </tr> <tr> <td>MONOCYTE #&lt ;/td> <td>2.0 k/cumm</td> <td>0.1-1.0< /td> </tr> <tr> <td>MONOCYTE &# 37;</td> <td>10 %</td> <td>4-6</td& gt; </tr> <tr> <td>RED BLOOD CELL</ td> <td>3.60 m/cumm</td> <td>4.00-6.00</td> </tr> <tr> <td>RED CELL DISTRIBUTION WIDTH</td> <td>16.6 %</td> <td&gt ;11.0-15.6</td> </tr> <tr> <td> WHITE BLOOD CELL</td> <td>19.8 k/cumm</td> <td&gt ;5.0-10.0</td> </tr> <tr> <td> HEMOGLOBIN</td> <td>10.1 gm/dL</td><td>12.0- 16.0</td> </tr> <tr> <td> HEMATOCRIT</td> <td>33.0 %</td> < td>37.0-47.0</td> </tr> <tr> <td& gt;PLATELET COUNT</td> <td>369 k/cumm</td> & lt;td>150-450</td> </tr> <tr> < th colspan="10">POTASSIUM - 04/03/17 05:45</th> </ tr> <tr> <td>POTASSIUM</td> <td >6.2 mmol/L</td> <td>3.5-5.3</td> </tr& gt; <tr> <th colspan="10">POTASSIUM - 05:45</th> </tr> <tr> <td> POTASSIUM</td> <td>6.2 mmol/L</td> <td&gt ;3.5-5.3</td> </tr> <tr> <th colspan ="10">GLUCOSE (POC) - 04/03/17 06:12</th> </tr> <tr> <td>GLUCOSE (POC)</td> <td>208 mg/ dL</td> <td>70-99</td> </tr> < tr> <th colspan="10">GLUCOSE (POC) - 04/03/17 06:12& lt;/th> </tr> <tr> <td>GLUCOSE (POC) </td> <td>208 mg/dL</td> <td>70-99< /td> </tr> <tr> <th colspan="10& quot;>METABOLIC PANEL, BASIC - 04/03/17 06:50</th> </tr> <tr> <td>POTASSIUM</td> <td> 6.3 mmol/L</td> <td>3.5-5.3</td> </tr> <tr> <td>EST GFR (MDRD)</td> <td& gt;16 mL/min</td> <td>> 59</td> </tr > <tr> <td>ANION GAP</td> <td& gt;12 mmol/L</td> <td>5-15</td> </tr> <tr> <td>EST CrCl (CG)</td> <td> 25 mL/min</td> <td>> 59</td> </tr&gt ; <tr> <td>GLUCOSE</td> <td> 198 mg/dL</td> <td>70-99</td> </tr> <tr> <td>CALCIUM</td> <td>8.8 mg/ dL</td> <td>8.5-10.1</td> </tr> & lt;tr> <td>BLOOD UREA NITROGEN</td> <td> 60 mg/dL</td> <td>7-20</td> </tr> <tr> <td>CREATININE</td> <td>2.9 mg/dL& lt;/td> <td>0.6-1.0</td> </tr> < tr> <td>SODIUM</td> <td>135 mmol/L</td > <td>135-148</td> </tr> <tr> <td>CHLORIDE</td> <td>99 mmol/L</td> <td>98-110</td> </tr> <tr> <td>CARBON DIOXIDE</td> <td>24 mmol/L</td> <td>21-32</td> </tr> <tr> < th colspan="10">METABOLIC PANEL, BASIC - 04/03/17 06:50</th> </tr> <tr> <td>POTASSIUM</td> <td>6.3 mmol/L</td> <td>3.5-5.3</td> </tr> <tr> <td>EST GFR (MDRD)</td> <td>16 mL/min</td> <td>> 59</td> </tr> <tr> <td>ANION GAP</td> <td>12 mmol/L</td> <td>5-15</td> </ tr> <tr> <td>EST CrCl (CG)</td> & lt;td>25 mL/min</td><td>> 59</td> </tr&gt ; <tr> <td>GLUCOSE</td> <td> 198 mg/dL</td> <td>70-99</td> </tr> <tr> <td>CALCIUM</td> <td>8.8 mg/ dL</td> <td>8.5-10.1</td> </tr> <tr > <td>BLOOD UREA NITROGEN</td> <td>60 mg/ dL</td> <td>7-20</td> </tr> <tr> <td>CREATININE</td> <td>2.9 mg/dL</td&gt ; <td>0.6-1.0</td> </tr> <tr> <td>SODIUM</td> <td>135 mmol/L</td> <td>135-148</td> </tr> <tr> <td>CHLORIDE</td> <td>99 mmol/L</td> & lt;td>98-110</td> </tr> <tr> <td& gt;CARBON DIOXIDE</td> <td>24 mmol/L</td> & lt;td>21-32</td> </tr> <tr> <th colspan="10">CBC - 04/03/17 06:57</th> </tr> <tr> <td>MEAN CELL HGB</td> <td> 28.2 pg</td> <td>27.0-33.0</td> </tr> & lt;tr> <td>MEAN CELL HGB CONCENTRATION</td> &lt ;td>30.7 g/dL</td> <td>32.0-37.0</td> </ tr> <tr> <td>MEAN CELL VOLUME</td> <td>91.9 fl</td> <td>80.0-100.0</td> & lt;/tr> <tr> <td>RED BLOOD CELL</td><td& gt;3.69 m/cumm</td> <td>4.00-6.00</td> </tr > <tr> <td>RED CELL DISTRIBUTION WIDTH</td&gt ; <td>16.7 %</td> <td>11.0-15.6</ td> </tr> <tr> <td>WHITE BLOOD CELL& lt;/td> <td>23.0 k/cumm</td> <td>5.0-10.0 </td> </tr> <tr> <td>HEMOGLOBIN& lt;/td><td>10.4 gm/dL</td> <td>12.0-16.0</td&gt ; </tr> <tr> <td>HEMATOCRIT</td> <td>33.9 %</td> <td>37.0-47.0</td> </tr> <tr> <td>PLATELET COUNT</td&gt ; <td>367 k/cumm</td> <td>150-450</td&gt ; </tr> <tr> <th colspan="10"&gt ;PROTHROMBIN TIME WITH INR - 04/03/17 06:57</th> </tr> <tr> <td>INTERNATIONAL NORMALRATIO</td> & lt;td>1.3 </td> <td>0.9-1.1</td> </tr&gt ; <tr> <td>PROTHROMBIN TIME</td> < td>14.3 sec</td> <td>10.0-12.8</td> </tr > <tr> <th colspan="10">PARTIAL THROMBOPLASTIN TIME - 04/03/17 06:57</th> </tr> <tr > <td>PARTIAL THROMBOPLASTIN TIME</td> <td& gt;32sec</td> <td>25-37</td> </tr> <tr> <th colspan="10">CBC - 04/03/17 06:57< /th> </tr> <tr> <td>MEAN CELL HGB</td > <td>28.2 pg</td> <td>27.0-33.0</td& gt; </tr> <tr> <td>MEAN CELL HGB CONCENTRATION</td> <td>30.7 g/dL</td> <td >32.0-37.0</td> </tr> <tr> <td&gt ;MEAN CELL VOLUME</td> <td>91.9 fl</td> < td>80.0-100.0</td> </tr> <tr> <td >RED BLOOD CELL</td> <td>3.69 m/cumm</td> <td>4.00-6.00</td> </tr> <tr> & lt;td>RED CELL DISTRIBUTION WIDTH</td> <td>16.7 &#37 ;</td> <td>11.0-15.6</td></tr> <tr&gt ; <td>WHITE BLOOD CELL</td> <td>23.0k/cumm& lt;/td> <td>5.0-10.0</td> </tr> < tr> <td>HEMOGLOBIN</td> <td>10.4 gm/dL</td&gt ; <td>12.0-16.0</td> </tr> <tr> <td>HEMATOCRIT</td><td>33.9 %</td> <td>37.0-47.0</td> </tr> <tr> < td>PLATELET COUNT</td> <td>367 k/cumm</td> & lt;td>150-450</td> </tr> <tr> < th colspan="10">PROTHROMBIN TIME WITH INR - 04/03/17 06:57</th& gt; </tr> <tr> <td>INTERNATIONAL NORMAL RATIO</td> <td>1.3 </td> <td>0.9-1.1& lt;/td> </tr> <tr> <td>PROTHROMBIN TIME</td> <td>14.3 sec</td> <td>10.0- 12.8</td></tr> <tr> <th colspan="10& quot;>PARTIAL THROMBOPLASTIN TIME - 04/03/17 06:57</th> </tr& gt; <tr> <td>PARTIAL THROMBOPLASTIN TIME</td> <td>32 sec</td> <td>25-37</td></tr > <tr> <th colspan="10">POTASSIUM - 08:35</th> </tr> <tr> <td> POTASSIUM</td> <td>6.3 mmol/L</td> <td&gt ;3.5-5.3</td> </tr> <tr> <th colspan= "10">POTASSIUM - 04/03/17 08:35</th> </tr> & lt;tr> <td>POTASSIUM</td> <td>6.3 mmol/L& lt;/td> <td>3.5-5.3</td> </tr> <tr&gt ; <th colspan="10">ARTERIAL BLOOD GAS - 04/03/17 09:20& lt;/th> </tr> <tr> <td>ABG BASE EXCESS< /td> <td>-4.4 meq/L</td> <td>-3.0-3.0< /td> </tr> <tr> <td>ABG BICARBONATE& lt;/td> <td>21.9 meq/L</td> <td>23.0-28.0 </td> </tr> <tr> <td>ABG PCO2< /td> <td>45 mm Hg</td> <td>34-45</td> </tr> <tr> <td>ABG PH</td> <td>7.30 </td> <td>7.35-7.45</td> &lt ;/tr> <tr> <td>ABG PO2</td> <td& gt;89 mm Hg</td> <td>75-100</td> </tr> & lt;tr> <td>ABG O2 SATURATION</td> <td>96 %</td> <td>93-100</td></tr> < tr> <th colspan="10">ARTERIAL BLOOD GAS - 04/03/17 09:20</th> </tr> <tr> <td>ABG BASE EXCESS</td> <td>-4.4 meq/L</td> <td& gt;-3.0-3.0</td> </tr> <tr> <td>ABG BICARBONATE</td> <td>21.9 meq/L</td> <td& gt;23.0-28.0</td> </tr> <tr> <td> ABG PCO2</td> <td>45 mm Hg</td> <td>34 -45</td> </tr> <tr> <td>ABG PH&lt ;/td> <td>7.30 </td> <td>7.35-7.45</td& gt; </tr> <tr> <td>ABG PO2</td> <td>89 mm Hg</td> <td>75-100</td> </tr> <tr> <td>ABG O2 SATURATION</td&gt ; <td>96 %</td> <td>93-100</td&gt ; </tr> <tr> <th colspan="10"&gt ;URINE CULTURE - 04/03/17 10:00</th> </tr> <tr> <td>Microbiology</td> <td> </td> <td /> </tr> <tr> <th colspan= "10">URINALYSIS, ROUTINE - 04/03/17 10:00</th> </tr > <tr> <td>UA LEUKOCYTE ESTERASE DIPSTICK</td& gt; <td>2+ </td> <td>NEGATIVE</td> </tr> <tr> <td>UA NITRITE DIPSTICK</td& gt; <td>NEGATIVE </td> <td>NEGATIVE</td& gt; </tr> <tr> <td>UA PROTEIN DIPSTICK& lt;/td> <td>1+ </td> <td>NEGATIVE</td& gt; </tr> <tr> <td>UA GLUCOSE DIPSTICK& lt;/td> <td>NEGATIVE </td> <td>NEGATIVE& lt;/td> </tr> <tr> <td>UA KETONE DIPSTICK</td> <td>TRACE </td> <td> NEGATIVE</td> </tr> <tr> <td>UA UROBILINOGEN DIPSTICK</td> <td>NORMAL </td> <td>NORMAL</td> </tr> <tr> <td >UA BILIRUBIN DIPSTICK</td> <td>NEGATIVE </td> <td>NEGATIVE</td> </tr> <tr> <td>UA BLOOD DIPSTICK</td> <td>TRACE </td> <td>NEGATIVE</td> </tr> <tr> <td>UA SPECIFIC GRAVITY</td> <td>1.015 </td> <td>1.015-1.025</td> </tr> <tr> <td>UR PH</td> <td>5.0 </td> <td>5.0-7.0</td> </tr> <tr> &lt ;thcolspan="10">UA MICROSCOPIC - / 10:00</th> & lt;/tr> <tr> <td>UA BACTERIA</td> <td>2+ </td> <td>NEGATIVE</td> </tr& gt; <tr> <td>UA EPITHELIAL CELLS</td> <td>1+ epi/hpf</td> <td>0 - 1+</td> & lt;/tr> <tr> <td>UA RBC</td> < td>0-3 rbc/hpf</td> <td>0 - 3</td> </tr> <tr> <td>UA VOLUME FOR EXAM</td> &lt ;td>12.0 mL</td> <td>(12mL STD)</td> </tr&gt ; <tr> <td>UA WBC</td> <td>20- 50 wbc/hpf</td> <td>0 - 5</td> </tr> <tr> <td>WBC CLUMPS</td> <td> PRESENT </td> <td>NEGATIVE</td> </tr> <tr> <th colspan="10">URINE CULTURE - 04/03 10:00</th> </tr> <tr> <td> Microbiology</td> <td> </td> <td /> </tr> <tr> <th colspan="10">URINALYSIS , ROUTINE - 04/03/17 10:00</th> </tr> <tr> <td>UA LEUKOCYTE ESTERASE DIPSTICK</td> <td>2+&lt ;/td> <td>NEGATIVE</td> </tr> <tr > <td>UA NITRITE DIPSTICK</td> <td> NEGATIVE </td> <td>NEGATIVE</td> </tr> <tr> <td>UA PROTEIN DIPSTICK</td> &lt ;td>1+ </td> <td>NEGATIVE</td> </tr> <tr> <td>UA GLUCOSE DIPSTICK</td> & lt;td>NEGATIVE </td> <td>NEGATIVE</td> </ tr> <tr> <td>UA KETONE DIPSTICK</td> <td>TRACE </td> <td>NEGATIVE</td> </ tr> <tr> <td>UA UROBILINOGEN DIPSTICK</td> <td>NORMAL </td> <td>NORMAL</td> </tr> <tr> <td>UA BILIRUBIN DIPSTICK</td > <td>NEGATIVE </td><td>NEGATIVE</td> </tr> <tr> <td>UA BLOOD DIPSTICK</td> <td>TRACE </td> <td>NEGATIVE</td> </tr> <tr> <td>UA SPECIFIC GRAVITY</td > <td>1.015</td> <td>1.015-1.025</td& gt; </tr> <tr> <td>UR PH</td> <td>5.0 </td> <td>5.0-7.0</td> </ tr> <tr> <th colspan="10">UA MICROSCOPIC - / 10:00</th> </tr> <tr> <td>UA BACTERIA</td> <td>2+ </td> & lt;td>NEGATIVE</td> </tr> <tr> < td>UA EPITHELIAL CELLS</td> <td>1+ epi/hpf</td> <td>0 - 1+</td> </tr> <tr> &lt ;td>UA RBC</td> <td>0-3 rbc/hpf</td> < td>0 - 3</td> </tr> <tr> <td> UA VOLUME FOR EXAM</td> <td>12.0 mL</td> &lt ;td>(12mL STD)</td> </tr> <tr> < td>UA WBC</td> <td>20-50 wbc/hpf</td> &lt ;td>0 - 5</td> </tr> <tr> <td> WBC CLUMPS</td> <td>PRESENT </td> <td> NEGATIVE</td> </tr> <tr> <th colspan ="10">GLUCOSE (POC) - 04/03/17 12:06</th> </tr> <tr> <td>GLUCOSE (POC)</td> <td& gt;214 mg/dL</td> <td>70-99</td> </tr> & lt;tr> <th colspan="10">GLUCOSE (POC) - 04/03/17 12: 06</th> </tr> <tr> <td>GLUCOSE ( POC)</td> <td>214 mg/dL</td> <td>70-99 </td> </tr> <tr> <th colspan=" 10">CARBAPENEMASE PCR- 04/03/17 12:56</th> </tr> <tr> <td>Microbiology</td> <td> & lt;/td> <td /> </tr> <tr> < th colspan="10">CARBAPENEMASE PCR - 04/03/17 12:56</th> </tr> <tr> <td>Microbiology</td> <td> </td> <td /> </tr> <tr&gt ; <th colspan="10">METABOLIC PANEL, BASIC - 04/03/17 16 :35</th> </tr> <tr> <td>POTASSIUM </td> <td>6.0 mmol/L</td> <td>3.5-5.3& lt;/td> </tr> <tr> <td>EST GFR (MDRD) </td> <td>15 mL/min</td> <td>> 59</td> </tr> <tr> <td>ANION GAP&lt ;/td> <td>11 mmol/L</td> <td>5-15</td& gt; </tr> <tr> <td>EST CrCl (CG)</td > <td>23 mL/min</td> <td>> 59</td> </tr><tr> <td>GLUCOSE</td> < td>257 mg/dL</td> <td>70-99</td> </tr&gt ; <tr> <td>CALCIUM</td> <td>9.0 mg /dL</td> <td>8.5-10.1</td> </tr> <tr > <td>BLOOD UREA NITROGEN</td> <td>69 mg/ dL</td> <td>7-20</td> </tr> < tr> <td>CREATININE</td> <td>3.1 mg/dL< /td> <td>0.6-1.0</td> </tr> <tr& gt; <td>SODIUM</td> <td>135 mmol/L</td&gt ; <td>135-148</td> </tr> <tr> <td>CHLORIDE</td> <td>99 mmol/L</td> <td>98-110</td></tr> <tr> <td& gt;CARBON DIOXIDE</td> <td>25 mmol/L</td> & lt;td>21-32</td> </tr> <tr> <th colspan="10">METABOLIC PANEL, BASIC - 04/03/17 16:35</th> </tr> <tr> <td>POTASSIUM</td> <td>6.0 mmol/L</td> <td>3.5-5.3</td> </tr& gt; <tr> <td>EST GFR (MDRD)</td> < td>15 mL/min</td> <td>> 59</td> </tr&gt ; <tr> <td>ANION GAP</td> <td> 11 mmol/L</td> <td>5-15</td> </tr> <tr> <td>EST CrCl (CG)</td> <td>23 mL/min</td> <td>> 59</td> </tr> <tr> <td>GLUCOSE</td> <td>257 mg/dL</td> <td>70-99</td> </tr> & lt;tr> <td>CALCIUM</td> <td>9.0 mg/dL</td> <td>8.5-10.1</td> </tr> <tr> <td>BLOOD UREA NITROGEN</td> <td>69 mg/dL</td&gt ; <td>7-20</td> </tr> <tr> <td>CREATININE</td> <td>3.1 mg/dL</td> <td>0.6-1.0</td> </tr> <tr> <td>SODIUM</td> <td>135 mmol/L</td> < td>135-148</td> </tr><tr> <td> CHLORIDE</td> <td>99 mmol/L</td> <td> 98-110</td> </tr> <tr> <td> CARBON DIOXIDE</td> <td>25 mmol/L</td> < td>21-32</td> </tr> <tr> <th colspan="10">GLUCOSE (POC) - 04/03/17 17:40</th> </ tr> <tr> <td>GLUCOSE (POC)</td> & lt;td>281 mg/dL</td> <td>70-99</td> </tr > <tr> <th colspan="10">GLUCOSE (POC) - 17:40</th> </tr> <tr> <td>GLUCOSE ( POC)</td> <td>281 mg/dL</td> <td>70-99< /td> </tr> <tr> <th colspan="10& quot;>GLUCOSE (POC) - 04/03/17 20:02</th> </tr> &lt ;tr> <td>GLUCOSE (POC)</td> <td>223 mg/dL </td> <td>70-99</td> </tr> <tr > <th colspan="10">GLUCOSE (POC)- 04/03/17 20:02< /th> </tr> <tr> <td>GLUCOSE (POC)&lt ;/td> <td>223 mg/dL</td> <td>70-99</td > </tr> <tr> <th colspan="10" >GLUCOSE (POC) - 04/03/17 23:27</th> </tr> <tr& gt; <td>GLUCOSE (POC)</td> <td>223 mg/dL< /td> <td>70-99</td> </tr> <tr&gt ; <th colspan="10">GLUCOSE (POC) - 04/03/17 23:27</th> </tr> <tr> <td>GLUCOSE (POC)</td> <td>223 mg/dL</td> <td>70-99</td> & lt;/tr> <tr> <th colspan="10">CBC W/ DIFF - 04/04/17 05:48</th> </tr> <tr> & lt;td>EOSINOPHIL #</td> <td>0.1 k/cumm</td> <td>0.1-0.5</td> </tr> <tr> & lt;td>EOSINOPHIL %</td> <td>1 %</td> <td>2-4</td> </tr> <tr> & lt;td>GRANULOCYTE #</td> <td>12.1 k/cumm</td> < td>2.0-9.0</td> </tr> <tr> <td&gt ;GRANULOCYTE %</td> <td>81 %</td> <td>50-75</td> </tr> <tr> < td>LYMPHOCYTE #</td> <td>1.5 k/cumm</td> <td>1.0-4.0</td> </tr> <tr> < td>LYMPHOCYTE %</td> <td>10 %</td&gt ; <td>20-30</td> </tr> <tr> <td>MEAN CELL HGB</td> <td>28.4 pg</td> <td>27.0-33.0</td> </tr> <tr> &lt ;td>MEAN CELL HGB CONCENTRATION</td> <td>31.4 g/dL</ td> <td>32.0-37.0</td> </tr> <tr& gt; <td>MEAN CELL VOLUME</td> <td>90.2 fl&lt ;/td> <td>80.0-100.0</td> </tr> < tr> <td>MONOCYTE #</td> <td>1.1 k/cumm&lt ;/td> <td>0.1-1.0</td> </tr> <tr& gt; <td>MONOCYTE %</td> <td>8 &# 37;</td> <td>4-6</td> </tr> <tr> <td>RED BLOOD CELL</td> <td>3.28 m/cumm</ td> <td>4.00-6.00</td> </tr> <tr& gt; <td>RED CELL DISTRIBUTION WIDTH</td> <td&gt ;16.7 %</td> <td>11.0-15.6</td> </ tr> <tr> <td>WHITE BLOOD CELL</td> <td>14.8 k/cumm</td> <td>5.0-10.0</td> </tr& gt; <tr> <td>HEMOGLOBIN</td> <td& gt;9.3 gm/dL</td> <td>12.0-16.0</td> </tr& gt; <tr> <td>HEMATOCRIT</td> <td& gt;29.6 %</td> <td>37.0-47.0</td> < /tr> <tr> <td>PLATELET COUNT</td> <td>280 k/cumm</td> <td>150-450</td> &lt ;/tr> <tr> <th colspan="10">METABOLIC PANEL, BASIC - 04/04/17 05:48</th> </tr> <tr> <td>POTASSIUM</td> <td>5.4 mmol/L</td> <td>3.5-5.3</td> </tr> <tr> <td>EST GFR (MDRD)</td> <td>16 mL/min</td&gt ; <td>> 59</td> </tr> <tr&gt ; <td>ANION GAP</td> <td>6 mmol/L</td&gt ; <td>5-15</td> </tr> <tr> <td>EST CrCl (CG)</td> <td>25 mL/min</td> <td>> 59</td> </tr> <tr> <td>GLUCOSE</td> <td>244 mg/dL</td> <td>70-99</td> </tr> <tr> <td>CALCIUM</td> <td>9.5 mg/dL</td> <td>8.5-10.1</td> </tr> <tr> < td>BLOOD UREA NITROGEN</td> <td>73 mg/dL</td>< td>7-20</td> </tr> <tr> <td> CREATININE</td> <td>2.9 mg/dL</td> <td&gt ;0.6-1.0</td> </tr> <tr> <td>SODIUM </td> <td>135 mmol/L</td> <td>135-148</td& gt; </tr> <tr> <td>CHLORIDE</td> <td>101 mmol/L</td> <td>98-110</td> </tr> <tr> <td>CARBON DIOXIDE</td&gt ; <td>28 mmol/L</td> <td>21-32</td> </tr> <tr> <th colspan="10"> AG HEPATITIS B SURF. - 04/04/17 05:48</th> </tr> < tr> <td>AG HEPATITIS B SURF.</td> <td> NEGATIVE </td> <td>NEGATIVE</td> </tr> & lt;tr> <th colspan="10">AB HEPATITIS C - 04/04/17 05 :48</th> </tr> <tr> <td>AB HEPATITIS C</td> <td>NEGATIVE </td> <td& gt;NEGATIVE</td> </tr> <tr> <th colspan="10">HIV - 04/04/17 05:48</th> </tr> <tr> <td>AB HIV 1 2</td> <td> NEGATIVE </td> <td>NEGATIVE</td> </tr> <tr> <td>HIV 1 P24 AG</td> <td> NEGATIVE </td> <td>NEGATIVE</td> </tr> <tr> <th colspan="10">CBC W/DIFF - 04/04/17 05:48</th> </tr> <tr><td>EOSINOPHIL #</ td> <td>0.1 k/cumm</td> <td>0.1-0.5</ td> </tr> <tr> <td>EOSINOPHIL &# 37;</td> <td>1 %</td> <td>2-4&lt ;/td> </tr><tr> <td>GRANULOCYTE #</td&gt ; <td>12.1 k/cumm</td> <td>2.0-9.0</td> </tr> <tr> <td>GRANULOCYTE %</ td> <td>81 %</td> <td>50-75</ td> </tr> <tr> <td>LYMPHOCYTE #</ td> <td>1.5 k/cumm</td> <td>1.0-4.0</ td> </tr> <tr> <td>LYMPHOCYTE %< /td> <td>10 %</td> <td>20-30</ td> </tr> <tr> <td>MEAN CELL HGB< /td> <td>28.4 pg</td> <td>27.0-33.0</ td> </tr> <tr> <td>MEAN CELL HGB CONCENTRATION</td> <td>31.4 g/dL</td> <td >32.0-37.0</td> </tr> <tr> <td&gt ;MEAN CELL VOLUME</td> <td>90.2 fl</td> < td>80.0-100.0</td> </tr> <tr> <td >MONOCYTE #</td> <td>1.1 k/cumm</td> <td>0.1 -1.0</td> </tr> <tr> <td> MONOCYTE %</td> <td>8 %</td> &lt ;td>4-6</td> </tr> <tr> <td> RED BLOOD CELL</td> <td>3.28 m/cumm</td> &lt ;td>4.00-6.00</td></tr> <tr> <td>RED CELL DISTRIBUTION WIDTH</td> <td>16.7 %</td> <td>11.0-15.6</td> </tr> <tr> <td>WHITE BLOOD CELL</td> <td>14.8 k/cumm< /td> <td>5.0-10.0</td> </tr> <tr> <td>HEMOGLOBIN</td> <td>9.3 gm/dL</td&gt ; <td>12.0-16.0</td> </tr> <tr> <td>HEMATOCRIT</td> <td>29.6 %</ td> <td>37.0-47.0</td> </tr> <tr& gt; <td>PLATELET COUNT</td> <td>280 k/cumm& lt;/td> <td>150-450</td> </tr> < tr> <th colspan="10">METABOLICPANEL, BASIC - 05:48</th> </tr> <tr> <td> POTASSIUM</td> <td>5.4 mmol/L</td> <td&gt ;3.5-5.3</td> </tr> <tr> <td>EST GFR ( MDRD)</td> <td>16 mL/min</td> <td>&amp ;gt; 59</td> </tr> <tr> <td>ANION GAP&lt ;/td> <td>6 mmol/L</td> <td>5-15</td& gt; </tr> <tr> <td>EST CrCl (CG)</td > <td>25 mL/min</td> <td>> 59</ td> </tr> <tr> <td>GLUCOSE</td&gt ; <td>244 mg/dL</td> <td>70-99</td> </tr> <tr> <td>CALCIUM</td> <td >9.5 mg/dL</td> <td>8.5-10.1</td> </tr& gt; <tr> <td>BLOOD UREA NITROGEN</td> <td>73 mg/dL</td> <td>7-20</td> </tr> <tr> <td>CREATININE</td> <td> 2.9 mg/dL</td> <td>0.6-1.0</td> </tr> <tr> <td>SODIUM</td> <td>135 mmol/L</td> <td>135-148</td> </tr> & lt;tr> <td>CHLORIDE</td> <td>101 mmol/L& lt;/td> <td>98-110</td> </tr> <tr > <td>CARBON DIOXIDE</td> <td>28 mmol/L& lt;/td> <td>21-32</td> </tr> <tr& gt; <th colspan="10">AG HEPATITIS B SURF. - 04/04/17 05 :48</th> </tr> <tr> <td>AG HEPATITIS B SURF.</td> <td>NEGATIVE </td> < td>NEGATIVE</td> </tr> <tr> <th colspan="10">AB HEPATITIS C - 04/04/17 05:48</th> < /tr> <tr> <td>AB HEPATITIS C</td> <td& gt;NEGATIVE </td> <td>NEGATIVE</td> </tr&gt ; <tr> <th colspan="10">HIV - 04/04/17 05: 48</th> </tr> <tr> <td>AB HIV 1 2</td> <td>NEGATIVE </td> <td> NEGATIVE</td> </tr> <tr> <td>HIV 1 P24 AG</td> <td>NEGATIVE </td> <td> NEGATIVE</td> </tr> <tr> <th colspan ="10">GLUCOSE (POC) - 04/04/17 06:21</th> </tr> <tr> <td>GLUCOSE (POC)</td> <td> 230 mg/dL</td> <td>70-99</td> </tr> <tr> <th colspan="10">GLUCOSE (POC) - 06:21</th> </tr> <tr> <td> GLUCOSE(POC)</td> <td>230 mg/dL</td> <td& gt;70-99</td> </tr> <tr> <th colspan ="10">GLUCOSE (POC) - 04/04/17 13:08</th> </tr> <tr> <td>GLUCOSE (POC)</td> <td>205 mg/ dL</td> <td>70-99</td> </tr> < tr> <th colspan="10">GLUCOSE (POC) - 04/04/17 13:08& lt;/th> </tr> <tr> <td>GLUCOSE (POC) </td> <td>205 mg/dL</td> <td>70-99< /td> </tr> <tr> <th colspan="10& quot;>GLUCOSE (POC) - 04/04/17 16:39</th> </tr> &lt ;tr> <td>GLUCOSE (POC)</td> <td>173 mg/dL& lt;/td> <td>70-99</td> </tr> <tr& gt; <th colspan="10">GLUCOSE (POC) - 04/04/17 16:39< /th> </tr> <tr> <td>GLUCOSE (POC)&lt ;/td> <td>173 mg/dL</td> <td>70-99</td ></tr> <tr> <th colspan="10"> GLUCOSE (POC) - 04/04/17 21:35</th> </tr> <tr> <td>GLUCOSE (POC)</td> <td>127 mg/dL</td> <td>70-99</td> </tr> <tr> & lt;th colspan="10">GLUCOSE (POC) - 04/04/17 21:35</th> </tr> <tr> <td>GLUCOSE (POC)</td> <td>127 mg/dL</td> <td>70-99</td> </tr> <tr> <th colspan="10">CBC - 05:08</th> </tr> <tr> <td> MEAN CELL HGB</td> <td>28.1 pg</td> <td& gt;27.0-33.0</td> </tr> <tr> <td> MEAN CELL HGB CONCENTRATION</td> <td>30.5 g/dL</td> <td>32.0-37.0</td> </tr> <tr> <td>MEAN CELL VOLUME</td> <td>92.1 fl</td& gt; <td>80.0-100.0</td> </tr> <tr&gt ; <td>RED BLOOD CELL</td> <td>2.67 m/cumm&lt ;/td> <td>4.00-6.00</td> </tr> < tr> <td>RED CELL DISTRIBUTION WIDTH</td> <td >16.7 %</td> <td>11.0-15.6</td> &lt ;/tr> <tr> <td>WHITE BLOOD CELL</td> <td>10.1 k/cumm</td> <td>5.0-10.0</td> </tr> <tr> <td>HEMOGLOBIN</td> <td>7.5 gm/dL</td> <td>12.0-16.0</td> </tr> <tr> <td>HEMATOCRIT</td> <td>24.6 %</td> <td>37.0-47.0</td&gt ; </tr> <tr> <td>PLATELET COUNT</td& gt; <td>224 k/cumm</td> <td>150-450</td& gt; </tr> <tr> <th colspan="10"& gt;METABOLIC PANEL, BASIC - 04/05/17 05:08</th> </tr> <tr> <td>POTASSIUM</td> <td>5.2 mmol/L</td& gt; <td>3.5-5.3</td> </tr> <tr> <td>EST GFR (MDRD)</td><td>15 mL/min</td> <td>> 59</td> </tr> <tr> <td>ANION GAP</td> <td>7 mmol/L</td> <td>5-15</td> </tr> <tr> &lt ;td>EST CrCl (CG)</td> <td>23 mL/min</td> <td>> 59</td> </tr> <tr> <td>GLUCOSE</td> <td>110 mg/dL</td> < td>70-99</td> </tr> <tr> <td> CALCIUM</td> <td>8.3 mg/dL</td> <td> 8.5-10.1</td> </tr> <tr> <td> BLOOD UREA NITROGEN</td> <td>76 mg/dL</td> & lt;td>7-20</td> </tr> <tr> <td&gt ;CREATININE</td> <td>3.1 mg/dL</td> <td& gt;0.6-1.0</td> </tr> <tr> <td> SODIUM</td> <td>137 mmol/L</td> <td> 135-148</td> </tr> <tr> <td> CHLORIDE</td> <td>104 mmol/L</td> <td> 98-110</td> </tr> <tr> <td> CARBON DIOXIDE</td> <td>26 mmol/L</td> < td>21-32</td> </tr> <tr> <th colspan=& quot;10">CBC - 04/05/17 05:08</th> </tr> < tr> <td>MEAN CELL HGB</td> <td>28.1 pg&lt ;/td> <td>27.0-33.0</td> </tr> < tr> <td>MEAN CELL HGB CONCENTRATION</td> <td >30.5 g/dL</td> <td>32.0-37.0</td> </tr& gt; <tr> <td>MEAN CELL VOLUME</td> & lt;td>92.1 fl</td> <td>80.0-100.0</td> < /tr> <tr> <td>RED BLOOD CELL</td> &lt ;td>2.67 m/cumm</td> <td>4.00-6.00</td> &lt ;/tr> <tr> <td>RED CELL DISTRIBUTION WIDTH</td > <td>16.7 %</td> <td>11.0-15.6& lt;/td> </tr> <tr> <td>WHITE BLOOD CELL</td> <td>10.1 k/cumm</td> <td>5.0 -10.0</td> </tr> <tr> <td> HEMOGLOBIN</td> <td>7.5 gm/dL</td> <td&gt ;12.0-16.0</td> </tr> <tr> <td> HEMATOCRIT</td> <td>24.6 %</td> <td >37.0-47.0</td> </tr> <tr> <td&gt ;PLATELET COUNT</td> <td>224 k/cumm</td> &lt ;td>150-450</td> </tr> <tr> <th colspan="10">METABOLIC PANEL, BASIC - 04/05/17 05:08</th> </tr> <tr> <td>POTASSIUM</td> <td>5.2 mmol/L</td> <td>3.5-5.3</td> </tr> <tr> <td>EST GFR (MDRD)</td> <td>15 mL/min</td> <td>> 59</td&gt ; </tr> <tr> <td>ANION GAP</td> <td>7 mmol/L</td> <td>5-15</td> </tr> <tr> <td>EST CrCl (CG)</td> <td>23 mL/min</td> <td>> 59</td> </tr> <tr> <td>GLUCOSE</td> <td>110 mg/dL</td> <td>70-99</td> &lt ;/tr> <tr> <td>CALCIUM</td> <td >8.3 mg/dL</td> <td>8.5-10.1</td> </tr& gt; <tr> <td>BLOOD UREA NITROGEN</td> <td>76 mg/dL</td> <td>7-20</td> </ tr> <tr> <td>CREATININE</td> <td&gt ;3.1 mg/dL</td> <td>0.6-1.0</td> </tr> <tr> <td>SODIUM</td> <td>137 mmol/L</td> <td>135-148</td> </tr> <tr> <td>CHLORIDE</td> <td>104 mmol /L</td> <td>98-110</td> </tr> &lt ;tr> <td>CARBON DIOXIDE</td> <td>26 mmol/L </td> <td>21-32</td> </tr> <tr> <th colspan="10">GLUCOSE (POC) - 04/05/17 10:30</th& gt; </tr> <tr> <td>GLUCOSE (POC)</td> <td>176 mg/dL</td> <td>70-99</td> </tr> <tr> <th colspan="10"> GLUCOSE (POC) - 04/05/17 10:30</th> </tr> <tr> <td>GLUCOSE (POC)</td> <td>176 mg/dL</td& gt; <td>70-99</td> </tr> <tr> <th colspan="10">GLUCOSE (POC) - 04/05/17 17:07</th&gt ; </tr> <tr> <td>GLUCOSE (POC)</td& gt; <td>162 mg/dL</td> <td>70-99</td> </tr> <tr> <th colspan="10"> GLUCOSE (POC) - 04/05/17 17:07</th> </tr> <tr> <td>GLUCOSE (POC)</td> <td>162 mg/dL</td& gt; <td>70-99</td> </tr> <tr> <th colspan="10">GLUCOSE (POC) - 04/05/17 20:54</th> &lt ;/tr> <tr> <td>GLUCOSE (POC)</td> <td>138 mg/dL</td> <td>70-99</td> </ tr> <tr> <th colspan="10">GLUCOSE (POC ) - 04/05/17 20:54</th> </tr> <tr> < td>GLUCOSE (POC)</td> <td>138 mg/dL</td><td> 70-99</td> </tr> <tr> <th colspan=& quot;10">METABOLIC PANEL, BASIC - 04/06/17 05:05</th> </ tr> <tr> <td>POTASSIUM</td> <td>5.3 mmol/L</td> <td>3.5-5.3</td> </tr> <tr> <td>EST GFR (MDRD)</td><td>17 mL/min&lt ;/td> <td>> 59</td> </tr> &lt ;tr> <td>ANION GAP</td> <td>9 mmol/L</ td> <td>5-15</td> </tr> <tr> <td>EST CrCl (CG)</td> <td>27 mL/min</td& gt; <td>> 59</td> </tr> <tr& gt; <td>GLUCOSE</td> <td>107 mg/dL</td&gt ; <td>70-99</td> </tr> <tr> <td>CALCIUM</td> <td>8.5 mg/dL</td> & lt;td>8.5-10.1</td> </tr> <tr> < td>BLOOD UREA NITROGEN</td> <td>85 mg/dL</td> <td>7-20</td> </tr> <tr> & lt;td>CREATININE</td> <td>2.7 mg/dL</td> <td>0.6-1.0</td> </tr> <tr> <td& gt;SODIUM</td> <td>135 mmol/L</td> <td&gt ;135-148</td> </tr> <tr> <td> CHLORIDE</td> <td>103 mmol/L</td> <td> 98-110</td> </tr> <tr> <td> CARBON DIOXIDE</td> <td>23 mmol/L</td> < td>21-32</td> </tr> <tr> <th colspan=& quot;10">CBC - 04/06/17 05:05</th> </tr> < tr> <td>MEAN CELL HGB</td> <td>28.2 pg&lt ;/td> <td>27.0-33.0</td> </tr> < tr> <td>MEAN CELL HGB CONCENTRATION</td> <td >30.9 g/dL</td> <td>32.0-37.0</td> </tr& gt; <tr> <td>MEAN CELL VOLUME</td> & lt;td>91.4 fl</td> <td>80.0-100.0</td> < /tr> <tr> <td>RED BLOOD CELL</td> &lt ;td>2.80 m/cumm</td> <td>4.00-6.00</td> &lt ;/tr> <tr> <td>RED CELL DISTRIBUTION WIDTH</td > <td>16.6 %</td> <td>11.0-15.6& lt;/td> </tr> <tr> <td>WHITE BLOOD CELL</td> <td>9.3 k/cumm</td> <td>5.0- 10.0</td> </tr> <tr> <td> HEMOGLOBIN</td> <td>7.9 gm/dL</td> <td&gt ;12.0-16.0</td> </tr> <tr> <td> HEMATOCRIT</td> <td>25.6 %</td> <td& gt;37.0-47.0</td> </tr> <tr> <td> PLATELET COUNT</td> <td>249 k/cumm</td> < td>150-450</td> </tr> <tr> <th colspan="10">METABOLIC PANEL, BASIC - 04/06/17 05:05</th> </tr> <tr> <td>POTASSIUM</td> <td>5.3 mmol/L</td> <td>3.5-5.3</td> </tr> <tr> <td>EST GFR (MDRD)</td> <td>17 mL/min</td> <td>> 59</td&gt ; </tr> <tr> <td>ANION GAP</td> <td>9 mmol/L</td> <td>5-15</td> </tr> <tr> <td>EST CrCl (CG)</td> <td>27 mL/min</td> <td>> 59</td> </tr> <tr> <td>GLUCOSE</td> <td>107 mg/dL</td> <td>70-99</td> < /tr> <tr> <td>CALCIUM</td> <td& gt;8.5 mg/dL</td> <td>8.5-10.1</td> </tr&gt ; <tr> <td>BLOOD UREA NITROGEN</td> & lt;td>85 mg/dL</td> <td>7-20</td> </tr& gt; <tr> <td>CREATININE</td> <td> 2.7 mg/dL</td> <td>0.6-1.0</td> </tr> <tr> <td>SODIUM</td> <td>135 mmol/L</td> <td>135-148</td> </tr> <tr> <td>CHLORIDE</td> <td>103 mmol /L</td> <td>98-110</td> </tr> &lt ;tr> <td>CARBON DIOXIDE</td> <td>23 mmol/L& lt;/td> <td>21-32</td> </tr><tr> <th colspan="10">CBC - 04/06/17 05:05</th> & lt;/tr> <tr> <td>MEAN CELL HGB</td> <td>28.2 pg</td> <td>27.0-33.0</td> & lt;/tr> <tr> <td>MEAN CELL HGB CONCENTRATION</ td> <td>30.9 g/dL</td> <td>32.0-37.0</ td> </tr> <tr> <td>MEAN CELL VOLUME& lt;/td> <td>91.4 fl</td> <td>80.0-100.0</ td> </tr> <tr> <td>RED BLOOD CELL</td& gt; <td>2.80 m/cumm</td> <td>4.00-6.00</td& gt; </tr> <tr> <td>RED CELL DISTRIBUTION WIDTH</td> <td>16.6 %</td> <td>11.0-15.6</td> </tr> <tr> <td>WHITE BLOOD CELL</td> <td>9.3 k/cumm</td&gt ; <td>5.0-10.0</td> </tr> <tr> <td>HEMOGLOBIN</td> <td>7.9 gm/dL</td> <td>12.0-16.0</td> </tr> <tr> & lt;td>HEMATOCRIT</td> <td>25.6 %</td> <td>37.0-47.0</td> </tr> <tr> & lt;td>PLATELET COUNT</td> <td>249 k/cumm</td> <td>150-450</td> </tr> <tr> <th colspan="10">GLUCOSE (POC) - 04/06/17 17:34</th> </ tr> <tr> <td>GLUCOSE (POC)</td> <td& gt;184 mg/dL</td> <td>70-99</td> </tr> <tr> <th colspan="10">GLUCOSE (POC) - 04/06/17 17:34</th> </tr> <tr> <td> GLUCOSE (POC)</td> <td>184 mg/dL</td> <td >70-99</td> </tr> <tr> <th colspan="10">GLUCOSE (POC) - 04/06/17 21:11</th> </ tr> <tr> <td>GLUCOSE (POC)</td> & lt;td>154 mg/dL</td> <td>70-99</td> </tr > <tr> <th colspan="10">GLUCOSE (POC) - 04/06/17 21:11</th> </tr> <tr> <td >GLUCOSE (POC)</td> <td>154 mg/dL</td> & lt;td>70-99</td> </tr> <tr> <th colspan= "10">VENOUS BLOOD GAS - 04/07/17 03:50</th> </tr&gt ; <tr> <td>VBG BASE EXCESS</td> <td& gt;-1.9 mEq/L</td> <td>-3.0-3.0</td> </tr& gt; <tr> <td>VBG BICARBONATE</td> &lt ;td>23.1 meq/L</td> <td>21-30</td> </tr& gt; <tr> <td>VBG PCO2</td> <td> 40 mmHg</td> <td>41-51</td> </tr> <tr> <td>VBG PH</td> <td>7.38 </ td> <td>7.33-7.43</td> </tr> <tr&gt ; <td>VBG PO2</td> <td>74 mm Hg</td> <td>35-40</td> </tr> <tr> <td>VBG O2 SATURATION</td> <td>94 %</td > <td>65-75</td> </tr> <tr> <th colspan="10">CBC W/DIFF -04/07/17 03:50</th> </tr> <tr> <td>EOSINOPHIL #</td> <td>0.1 k/cumm</td> <td>0.1-0.5</td> </tr> <tr> <td>EOSINOPHIL %&lt ;/td> <td>1 %</td> <td>2-4</td > </tr> <tr> <td>GRANULOCYTE #</ td> <td>6.2 k/cumm</td> <td>2.0-9.0</ td> </tr> <tr> <td>GRANULOCYTE & #37;</td> <td>72 %</td> <td>50-75</ td> </tr> <tr> <td>LYMPHOCYTE #</ td> <td>1.3 k/cumm</td> <td>1.0-4.0</ td> </tr> <tr> <td>LYMPHOCYTE &# 37;</td> <td>15 %</td> <td>20- 30</td></tr> <tr> <td>MEAN CELL HGB</ td> <td>27.7 pg</td> <td>27.0-33.0</td > </tr> <tr> <td>MEAN CELL HGB CONCENTRATION</td> <td>30.6 g/dL</td> <td >32.0-37.0</td> </tr> <tr> <td&gt ;MEAN CELL VOLUME</td> <td>90.6 fl</td> < td>80.0-100.0</td> </tr> <tr> <td >MONOCYTE #</td> <td>1.0 k/cumm</td> < td>0.1-1.0</td> </tr> <tr> <td&gt ;MONOCYTE %</td> <td>12 %</td> <td>4-6</td> </tr> <tr> < td>RED BLOOD CELL</td> <td>3.10 m/cumm</td> <td>4.00-6.00</td> </tr> <tr> <td>RED CELL DISTRIBUTION WIDTH</td> <td>16.6 & #37;</td> <td>11.0-15.6</td> </tr> <tr> <td>WHITE BLOOD CELL</td> <td> 8.6 k/cumm</td> <td>5.0-10.0</td> </tr> <tr> <td>HEMOGLOBIN</td> <td> 8.6 gm/dL</td> <td>12.0-16.0</td> </tr> <tr> <td>HEMATOCRIT</td> <td> 28.1 %</td> <td>37.0-47.0</td> </tr > <tr> <td>PLATELET COUNT</td> &lt ;td>304 k/cumm</td> <td>150-450</td> </ tr> <tr> <th colspan="10">RETICULOCYTE COUNT - 04/07/17 03:50</th> </tr> <tr> <td>IMMATURE FRACTION</td><td>24.9 %</td> <td>9.3-17.4</td> </tr><tr> <td& gt;ABSOLUTE RETIC COUNT</td> <td>102.3 k/cumm</td> <td>39.1-57.0</td> </tr> <tr> <td>PERCENT RETIC</td> <td>3.3 %</td > <td>0.86-1.36</td> </tr> <tr&gt ; <td>RETIC HGB EQUIVALENT</td> <td>29.3 pg/cell&lt ;/td> <td>27.1-35.2</td> </tr> <tr> <th colspan="10">HEMOGLOBIN A1C - 04/07/17 03:50</ th> </tr> <tr> <td>HEMOGLOBIN A1C</td > <td>6.9 %</td> <td>< 5.7 </td> </tr> <tr> <th colspan=" 10">IRON W/ BINDING CAPACITY - 04/07/17 03:50</th> </tr> <tr> <td>IRON SATURATION</td> <td& gt;5 % SAT</td> <td>11-46</td> </tr > <tr> <td>IRON BINDING CAPACITY, TOTAL</td> <td>345 mcg/dL</td> <td>250-450</td> < /tr> <tr> <td>IRON</td> <td> 18 mcg/dL</td> <td>35-150</td> </tr> <tr> <th colspan="10">METABOLIC PANEL, BASIC - 04/07/17 03:50</th> </tr> <tr> <td& gt;POTASSIUM</td> <td>4.9 mmol/L</td> <td >3.5-5.3</td> </tr> <tr> <td> EST GFR (MDRD)</td> <td>28 mL/min</td> < td>> 59</td> </tr> <tr> < td>ANION GAP</td> <td>10 mmol/L</td> < td>5-15</td> </tr> <tr> <td>EST CrCl (CG)</td> <td>40 mL/min</td> <td>> 59 </td> </tr> <tr> <td>GLUCOSE</ td> <td>109 mg/dL</td> <td>70-99</td& gt; </tr> <tr> <td>CALCIUM</td> <td>8.4 mg/dL</td> <td>8.5-10.1</td> </tr> <tr> <td>BLOODUREA NITROGEN</td > <td>79 mg/dL</td> <td>7-20</td> </tr> <tr> <td>CREATININE</td> <td>1.8 mg/dL</td> <td>0.6-1.0</td> </tr> <tr> <td>SODIUM</td> & lt;td>140 mmol/L</td> <td>135-148</td> < /tr> <tr> <td>CHLORIDE</td> <td >105 mmol/L</td> <td>98-110</td> </tr&gt ; <tr> <td>CARBON DIOXIDE</td> <td>25 mmol/L</td> <td>21-32</td> </tr> <tr> <th colspan="10">LACTATE DEHYDROGENASE (LDH/ LD) - 04/07/17 03:50</th> </tr> <tr> & lt;td>LACTATE DEHYDROGENASE (LDH/LD)</td> <td>330 Units/ L</td> <td>81-234</td> </tr> < tr> <th colspan="10">FERRITIN - 04/07/17 03:50</ th> </tr> <tr> <td>FERRITIN</td& gt; <td>42 ng/mL</td> <td>8-252</td> </tr> <tr> <th colspan="10"> THYROID STIM HORMONE (TSH) - 04/07/17 03:50</th> </tr> <tr> <td>THYROID STIM HORMONE (TSH)</td> & lt;td>1.54 uIU/mL</td> <td>0.34-4.82</td> </ tr> <tr> <th colspan="10">FOLIC ACID, SERUM - 04/07/17 03:50</th> </tr> <tr> <td>FOLIC ACID,SERUM</td> <td>> 20.0 ng/mL< /td> <td>> 3.4</td> </tr> <tr&gt ; <th colspan="10">VITAMIN B12 - 04/07/17 03:50</th& gt; </tr> <tr> <td>VITAMIN B12</td& gt; <td>488 pg/mL</td> <td>193-986</td&gt ; </tr> <tr> <th colspan="10"&gt ;HAPTOGLOBIN - 04/07/17 03:50</th> </tr> <tr> <td>HAPTOGLOBIN</td> <td>407 mg/dL</td&gt ; <td>30-200</td> </tr> <tr> <th colspan="10">VENOUS BLOOD GAS - 04/07/17 03:50</th& gt; </tr> <tr> <td>VBG BASE EXCESS</td > <td>-1.9 mEq/L</td> <td>-3.0-3.0</td > </tr> <tr> <td>VBG BICARBONATE< /td> <td>23.1 meq/L</td> <td>21-30</td > </tr> <tr> <td>VBG PCO2</td&gt ; <td>40 mm Hg</td> <td>41-51</td> & lt;/tr> <tr> <td>VBG PH</td> < td>7.38 </td> <td>7.33-7.43</td> </tr&gt ; <tr> <td>VBG PO2</td> <td>74 mm Hg</td> <td>35-40</td> </tr> <tr&gt ; <td>VBG O2 SATURATION</td> <td>94 &#37 ;</td> <td>65-75</td> </tr> < tr> <th colspan="10">CBC W/DIFF - 04/07/17 03:50< /th> </tr> <tr> <td>EOSINOPHIL #< /td> <td>0.1 k/cumm</td> <td>0.1-0.5</ td> </tr> <tr> <td>EOSINOPHIL &# 37;</td> <td>1 %</td> <td>2-4</td& gt; </tr> <tr> <td>GRANULOCYTE #</td > <td>6.2 k/cumm</td> <td>2.0-9.0</td& gt; </tr> <tr> <td>GRANULOCYTE &#37 ;</td> <td>72 %</td> <td>50-75 </td> </tr> <tr> <td>LYMPHOCYTE # </td> <td>1.3 k/cumm</td> <td>1.0-4.0& lt;/td> </tr> <tr> <td>LYMPHOCYTE & amp;#37;</td> <td>15 %</td> <td>20 -30</td> </tr> <tr> <td>MEAN CELL HGB&lt ;/td> <td>27.7 pg</td> <td>27.0-33.0</td> </tr> <tr> <td>MEAN CELL HGB CONCENTRATION</td> <td>30.6 g/dL</td> <td >32.0-37.0</td> </tr> <tr> <td&gt ;MEAN CELL VOLUME</td> <td>90.6 fl</td> < td>80.0-100.0</td> </tr> <tr> <td >MONOCYTE #</td> <td>1.0 k/cumm</td> < td>0.1-1.0</td> </tr> <tr> <td&gt ;MONOCYTE %</td> <td>12 %</td> <td>4-6</td> </tr> <tr> < td>RED BLOOD CELL</td> <td>3.10 m/cumm</td> <td>4.00-6.00</td> </tr> <tr> <td>RED CELL DISTRIBUTION WIDTH</td> <td>16.6 & #37;</td> <td>11.0-15.6</td> </tr> <tr> <td>WHITE BLOOD CELL</td> <td> 8.6 k/cumm</td> <td>5.0-10.0</td> </tr> <tr> <td>HEMOGLOBIN</td> <td> 8.6 gm/dL</td> <td>12.0-16.0</td> </tr> <tr> <td>HEMATOCRIT</td> <td> 28.1 %</td> <td>37.0-47.0</td> </tr > <tr> <td>PLATELET COUNT</td> &lt ;td>304 k/cumm</td> <td>150-450</td> </ tr> <tr> <th colspan="10">RETICULOCYTE COUNT - 04/07/17 03:50</th> </tr> <tr> <td>IMMATURE FRACTION</td> <td>24.9 %</td& gt; <td>9.3-17.4</td> </tr> <tr> <td>ABSOLUTE RETIC COUNT</td> <td>102.3 k/cumm</ td> <td>39.1-57.0</td> </tr> <tr& gt; <td>PERCENT RETIC</td> <td>3.3 % </td> <td>0.86-1.36</td> </tr> & lt;tr> <td>RETIC HGB EQUIVALENT</td> <td> 29.3pg/cell</td> <td>27.1-35.2</td> </tr&gt ; <tr> <th colspan="10">HEMOGLOBIN A1C - 03:50</th> </tr> <tr> <td> HEMOGLOBIN A1C</td> <td>6.9 %</td> & lt;td>< 5.7</td> </tr> <tr> & lt;th colspan="10">IRON W/ BINDING CAPACITY - 04/07/17 03:50</th > </tr> <tr> <td>IRON SATURATION</td& gt; <td>5 % SAT</td> <td>11-46</ td> </tr> <tr> <td>IRON BINDING CAPACITY, TOTAL</td> <td>345 mcg/dL</td> &lt ;td>250-450</td> </tr> <tr> <td& gt;IRON</td> <td>18 mcg/dL</td> <td>35 -150</td> </tr> <tr> <th colspan=" 10">METABOLIC PANEL, BASIC - 04/07/17 03:50</th> </tr&gt ; <tr> <td>POTASSIUM</td> <td> 4.9 mmol/L</td> <td>3.5-5.3</td> </tr> <tr> <td>EST GFR (MDRD)</td> <td& gt;28 mL/min</td> <td>> 59</td> </tr > <tr> <td>ANION GAP</td> <td& gt;10 mmol/L</td> <td>5-15</td> </tr> <tr> <td>EST CrCl (CG)</td> <td>40 mL/ min</td> <td>> 59</td> </tr> <tr> <td>GLUCOSE</td> <td>109 mg/dL</td > <td>70-99</td> </tr> <tr> <td>CALCIUM</td> <td>8.4 mg/dL</td> <td>8.5-10.1</td> </tr> <tr> <td>BLOOD UREA NITROGEN</td> <td>79 mg/dL</td& gt; <td>7-20</td> </tr> <tr> <td>CREATININE</td> <td>1.8 mg/dL</td> <td>0.6-1.0</td> </tr> <tr> &lt ;td>SODIUM</td> <td>140 mmol/L</td> < td>135-148</td> </tr> <tr> <td&gt ;CHLORIDE</td> <td>105 mmol/L</td> <td&gt ;98-110</td> </tr> <tr> <td> CARBON DIOXIDE</td> <td>25 mmol/L</td> < td>21-32</td> </tr> <tr> <th colspan=& quot;10">LACTATE DEHYDROGENASE (LDH/LD) - 04/07/17 03:50</th> </tr> <tr> <td>LACTATE DEHYDROGENASE (LDH/ LD)</td> <td>330 Units/L</td> <td>81- 234</td> </tr> <tr> <th colspan=& quot;10">FERRITIN - 04/07/17 03:50</th> </tr> <tr> <td>FERRITIN</td> <td>42 ng/mL</td > <td>8-252</td> </tr> <tr> <th colspan="10">THYROID STIM HORMONE (TSH) - 04/07/17 03:50</th> </tr> <tr> <td> THYROID STIM HORMONE (TSH)</td> <td>1.54 uIU/mL</td> <td>0.34-4.82</td> </tr> <tr> & lt;th colspan="10">FOLIC ACID,SERUM - 04/07/17 03:50</th> </tr> <tr> <td>FOLIC ACID,SERUM</td&gt ; <td>> 20.0 ng/mL</td> <td>> 3.4</td> </tr> <tr> <th colspan="10& quot;>VITAMIN B12 - 04/07/17 03:50</th> </tr> <tr> <td>VITAMIN B12</td> <td>488 pg/mL</td&gt ; <td>193-986</td> </tr> <tr> <th colspan="10">HAPTOGLOBIN - 04/07/17 03:50</th> </tr> <tr> <td>HAPTOGLOBIN</td> <td>407 mg/dL</td> <td>30-200</td> </tr> <tr> <th colspan="10"> GLUCOSE (POC) - 04/07/17 07:42</th> </tr> <tr> <td>GLUCOSE (POC)</td> <td>123 mg/dL</td& gt; <td>70-99</td> </tr> <tr> <th colspan="10">GLUCOSE (POC) - 04/07/1707:42</th> </tr> <tr> <td>GLUCOSE (POC)</td> <td>123 mg/dL</td> <td>70-99</td> & lt;/tr> <tr> <th colspan="10">GLUCOSE ( POC) - 04/07/17 11:38</th> </tr> <tr> & lt;td>GLUCOSE (POC)</td> <td>218 mg/dL</td> <td>70-99</td> </tr> <tr> &lt ;thcolspan="10">GLUCOSE (POC) - 04/07/17 11:38</th> & lt;/tr> <tr> <td>GLUCOSE (POC)</td> <td>218 mg/dL</td> <td>70-99</td> &lt ;/tr> <tr> <th colspan="10">FECAL OCCULT BLOOD - 04/07/17 12:05</th> </tr> <tr> <td>Microbiology</td> <td> </td> <td /> </tr> <tr> <th colspan=& quot;10">FECAL OCCULT BLOOD - 04/07/17 12:05</th> </tr& gt; <tr> <td>Microbiology</td> <td > </td> <td /> </tr> <tr> <th colspan="10">GLUCOSE (POC) - 04/07/17 17:25</th&gt ; </tr> <tr> <td>GLUCOSE (POC)</td> <td>221 mg/dL</td> <td>70-99</td> </tr> <tr> <th colspan="10">GLUCOSE (POC) - 04/07/17 17:25</th> </tr> <tr> <td>GLUCOSE (POC)</td> <td>221 mg/dL</td> <td>70-99</td> </tr> <tr> & lt;th colspan="10">GLUCOSE (POC) - 04/07/17 20:28</th> </tr> <tr> <td>GLUCOSE (POC)</td> <td>151 mg/dL</td> <td>70-99</td> </tr> <tr> <th colspan="10">GLUCOSE ( POC) - 04/07/17 20:28</th> </tr> <tr> & lt;td>GLUCOSE (POC)</td> <td>151 mg/dL</td> <td>70-99</td> </tr> <tr> &lt ;th colspan="10">CBC W/DIFF - 17 04:02</th> < /tr> <tr> <td>COMMENT</td> <td> REVIEWED </td> <td /> </tr> <tr> <td>EOSINOPHIL #</td> <td>0.1 k/cumm</td > <td>0.1-0.5</td> </tr> <tr> <td>EOSINOPHIL %</td> <td>1 &# 37;</td> <td>2-4</td> </tr> < tr> <td>GRANULOCYTE #</td><td>6.1 k/cumm</td&gt ; <td>2.0-9.0</td> </tr> <tr> <td>GRANULOCYTE %</td> <td>70 &#37 ;</td> <td>50-75</td> </tr> <tr > <td>LYMPHOCYTE #</td> <td>1.4 k/cumm&lt ;/td> <td>1.0-4.0</td></tr> <tr> <td>LYMPHOCYTE %</td> <td>16 %& lt;/td> <td>20-30</td> </tr> <tr& gt; <td>MEAN CELL HGB</td> <td>27.7 pg</td> <td>27.0-33.0</td> </tr> <tr> <td>MEAN CELL HGB CONCENTRATION</td> <td> 30.5 g/dL</td> <td>32.0-37.0</td> </tr> <tr> <td>MEAN CELL VOLUME</td> < td>91.0 fl</td> <td>80.0-100.0</td> </tr > <tr> <td>MONOCYTE #</td> <td& gt;1.1 k/cumm</td> <td>0.1-1.0</td> </tr&gt ; <tr> <td>MONOCYTE %</td><td> 12 %</td> <td>4-6</td> </tr> <tr> <td>RED BLOOD CELL</td> <td> 3.21 m/cumm</td> <td>4.00-6.00</td> </tr&gt ; <tr> <td>RED CELL DISTRIBUTION WIDTH</td> <td>16.7 %</td> <td>11.0-15.6</td& gt; </tr> <tr> <td>WHITE BLOOD CELL< /td><td>8.7 k/cumm</td> <td>5.0-10.0</td> </tr> <tr> <td>HEMOGLOBIN</td> <td>8.9 gm/dL</td> <td>12.0-16.0</td> </tr> <tr> <td>HEMATOCRIT</td> <td>29.2 %</td> <td>37.0-47.0</td& gt; </tr> <tr> <td>PLATELET COUNT</ td> <td>307 k/cumm</td> <td>150-450</ td> </tr> <tr> <thcolspan="10&quot ;>RENAL FUNCTION PANEL - 04/08/17 04:02</th> </tr><tr& gt; <td>POTASSIUM</td> <td>4.4 mmol/L</td ><td>3.5-5.3</td> </tr> <tr> & lt;td>EST GFR (MDRD)</td> <td>40 mL/min</td> <td>> 59</td> </tr> <tr> <td>ANION GAP</td> <td>7 mmol/L</td> <td>5-15</td> </tr> <tr> &lt ;td>ESTCrCl (CG)</td> <td>56 mL/min</td> <td>> 59</td> </tr> <tr> & lt;td>GLUCOSE</td> <td>97 mg/dL</td> < td>70-99</td> </tr> <tr> <td> CALCIUM</td> <td>9.2 mg/dL</td> <td> 8.5-10.1</td> </tr> <tr> <td> BLOOD UREA NITROGEN</td> <td>71 mg/dL</td> & lt;td>7-20</td> </tr> <tr> <td> CREATININE</td> <td>1.3 mg/dL</td> <td&gt ;0.6-1.0</td> </tr> <tr> <td> SODIUM</td> <td>142 mmol/L</td> <td> 135-148</td> </tr> <tr> <td> CHLORIDE</td> <td>108 mmol/L</td> <td> 98-110</td> </tr> <tr> <td> CARBON DIOXIDE</td> <td>27 mmol/L</td> < td>21-32</td> </tr> <tr> <td> ALBUMIN</td> <td>2.6 gm/dL</td><td>3.4-5.0</ td> </tr> <tr> <td>PHOSPHORUS</td > <td>3.5 mg/dL</td> <td>2.5-4.9</td& gt; </tr> <tr> <th colspan="10"& gt;CBC W/DIFF - 04/08/17 04:02</th> </tr> <tr> <td>COMMENT</td> <td>REVIEWED </td> <td /> </tr> <tr> <td> EOSINOPHIL #</td> <td>0.1 k/cumm</td> <td >0.1-0.5</td></tr> <tr> <td> EOSINOPHIL %</td> <td>1 %</td> <td>2-4</td> </tr> <tr> <td> GRANULOCYTE #</td> <td>6.1 k/cumm</td> < td>2.0-9.0</td> </tr> <tr> <td&gt ;GRANULOCYTE %</td> <td>70 %</td> <td>50-75</td> </tr> <tr> & lt;td>LYMPHOCYTE #</td> <td>1.4 k/cumm</td> <td>1.0-4.0</td> </tr> <tr> & lt;td>LYMPHOCYTE %</td> <td>16 %</td& gt; <td>20-30</td> </tr> <tr> <td>MEAN CELL HGB</td> <td>27.7 pg</td> <td>27.0-33.0</td> </tr> <tr> <td>MEAN CELL HGB CONCENTRATION</td> <td>30.5 g/ dL</td> <td>32.0-37.0</td> </tr> <tr& gt; <td>MEAN CELL VOLUME</td> <td>91.0 fl&lt ;/td> <td>80.0-100.0</td> </tr> <tr&gt ; <td>MONOCYTE #</td> <td>1.1 k/cumm</td& gt; <td>0.1-1.0</td> </tr> <tr> <td>MONOCYTE %</td> <td>12 % </td> <td>4-6</td> </tr> <tr& gt; <td>RED BLOOD CELL</td> <td>3.21 m/cumm</td& gt; <td>4.00-6.00</td> </tr><tr> <td>RED CELL DISTRIBUTION WIDTH</td> <td>16.7 &amp ;#37;</td> <td>11.0-15.6</td> </tr> <tr> <td>WHITE BLOOD CELL</td> <td&gt ;8.7 k/cumm</td> <td>5.0-10.0</td> </tr&gt ; <tr> <td>HEMOGLOBIN</td> <td>8.9 gm/dL </td> <td>12.0-16.0</td> </tr> & lt;tr> <td>HEMATOCRIT</td> <td>29.2 & #37;</td> <td>37.0-47.0</td> </tr> <tr > <td>PLATELET COUNT</td> <td>307 k/cumm& lt;/td> <td>150-450</td> </tr> < tr> <th colspan="10">RENAL FUNCTION PANEL - 04:02</th> </tr> <tr> <td> POTASSIUM</td> <td>4.4 mmol/L</td> <td>3.5- 5.3</td> </tr> <tr> <td>EST GFR ( MDRD)</td> <td>40 mL/min</td> <td>> 59 </td> </tr> <tr> <td>ANION GAP&lt ;/td> <td>7 mmol/L</td> <td>5-15</td& gt; </tr> <tr> <td>EST CrCl (CG)</td > <td>56 mL/min</td> <td>> 59</ td> </tr> <tr> <td>GLUCOSE</td&gt ; <td>97 mg/dL</td> <td>70-99</td> & lt;/tr> <tr> <td>CALCIUM</td> < td>9.2 mg/dL</td> <td>8.5-10.1</td> </tr > <tr> <td>BLOOD UREA NITROGEN</td> <td>71 mg/dL</td> <td>7-20</td> </ tr> <tr> <td>CREATININE</td> < td>1.3 mg/dL</td> <td>0.6-1.0</td> </tr& gt; <tr> <td>SODIUM</td> <td>142 mmol/L</td> <td>135-148</td> </tr> <tr> <td>CHLORIDE</td> <td>108 mmol /L</td> <td>98-110</td> </tr> &lt ;tr> <td>CARBON DIOXIDE</td> <td>27 mmol/ L</td> <td>21-32</td> </tr> < tr> <td>ALBUMIN</td> <td>2.6 gm/dL</td> <td>3.4-5.0</td> </tr> <tr> <td>PHOSPHORUS</td> <td>3.5 mg/dL</td> <td>2.5-4.9</td> </tr> <tr> <th colspan="10">GLUCOSE (POC) - 04/08/17 06:26</th> </tr> <tr> <td>GLUCOSE (POC)</td&gt ; <td>110 mg/dL</td> <td>70-99</td> </tr> <tr> <th colspan="10"> GLUCOSE (POC) - 04/08/17 06:26</th> </tr> <tr> <td>GLUCOSE (POC)</td> <td>110 mg/dL</td& gt; <td>70-99</td> </tr> <tr> <th colspan="10">GLUCOSE (POC) - 04/08/17 11:17</th> </tr> <tr> <td>GLUCOSE (POC)</td> <td>507 mg/dL</td> <td>70-99</td> </tr> <tr> <th colspan="10"> GLUCOSE (POC) - 04/08/17 11:17</th> </tr> <tr> <td>GLUCOSE (POC)</td> <td>507 mg/dL</td& gt; <td>70-99</td> </tr> <tr> & lt;th colspan="10">GLUCOSE (POC) - 04/08/17 11:18</th> </tr> <tr> <td>GLUCOSE (POC)</td> <td>207 mg/dL</td> <td>70-99</td> </tr> <tr> <th colspan="10">GLUCOSE (POC) - 04/08/17 11:18</th> </tr> <tr> <td>GLUCOSE (POC)</td> <td>207 mg/dL</td> <td>70-99</td> </tr> <tr> < th colspan="10">URINALYSIS, ROUTINE - 04/08/ 15:19</th> </tr> <tr> <td>UA LEUKOCYTE ESTERASE DIPSTICK</td> <td>2+ </td> <td> NEGATIVE</td> </tr><tr> <td>UA NITRITE DIPSTICK</td> <td>POSITIVE </td> <td> NEGATIVE</td> </tr> <tr> <td>UA PROTEIN DIPSTICK</td> <td>TRACE </td> <td >NEGATIVE</td> </tr> <tr> <td> UA GLUCOSE DIPSTICK</td> <td>NEGATIVE </td> <td>NEGATIVE</td> </tr> <tr> < td>UA KETONE DIPSTICK</td> <td>TRACE </td> <td>NEGATIVE</td> </tr> <tr> & lt;td>UA UROBILINOGEN DIPSTICK</td> <td>NORMAL </td& gt; <td>NORMAL</td> </tr> <tr> <td>UA BILIRUBIN DIPSTICK</td> <td>NEGATIVE & lt;/td> <td>NEGATIVE</td> </tr> < tr> <td>UA BLOOD DIPSTICK</td> <td>3+ </td&gt ; <td>NEGATIVE</td> </tr> <tr> <td>UA SPECIFIC GRAVITY</td> <td>1.015 </td& gt; <td>1.015-1.025</td> </tr> <tr> <td>UR PH</td> <td>5.0 </td> & lt;td>5.0-7.0</td> </tr> <tr> < th colspan="10">UA MICROSCOPIC - 04/08/17 15:19</th> & lt;/tr> <tr> <td>UA AMORPHOUS SEDIMENT</td&gt ; <td>NEGATIVE </td> <td /> </tr& gt; <tr> <td>UA BACTERIA</td> <td& gt;3+ </td> <td>NEGATIVE</td> </tr> <tr> <td>UA EPITHELIAL CELLS</td> <td >3+ epi/hpf</td> <td>0 - 1+</td> </tr&gt ; <tr> <td>UA MUCUS</td> <td> NEGATIVE </td> <td>NEG TO 1+</td> </tr> <tr> <td>UA RBC</td> <td>3-5 rbc/ hpf</td> <td>0 - 3</td> </tr> &lt ;tr> <td>UA TRICHOMONAS</td> <td>NEGATIVE </td& gt; <td>NEGATIVE</td> </tr> <tr> <td>UA VOLUME FOR EXAM</td> <td>12.0 mL< /td> <td>(12mL STD)</td> </tr> <tr> <td>UA URIC ACID CRYSTALS</td> <td>PRESENT & lt;/td> <td>NEGATIVE</td> </tr> <tr > <td>UA WBC</td> <td>10-20 wbc/hpf</ td> <td>0 - 5</td> </tr> <tr> <td>UA YEAST</td> <td>NEGATIVE </td> <td>NEGATIVE</td> </tr> <tr> <th colspan="10">UR SODIUM - 04/08/17 15:19</th> </tr> <tr> <td>UR SODIUM COMMENT</td& gt; <td>RANDOM </td> <td /> </tr& gt; <tr> <td>UR SODIUM LEVEL</td> &lt ;td>47 mmol/L</td> <td>20-40</td> </tr& gt; <tr> <th colspan="10">UR CREATININE - 04/08/17 15:19</th> </tr> <tr> <td& gt;URCREATININE COMMENT</td> <td>RANDOM </td> <td /> </tr> <tr> <td>UR CREATININE LEVEL</td> <td>90.4 mg/dL</td> & lt;td>44-467</td> </tr> <tr> <th colspan="10">URINE CULTURE - 04/08/17 15:19</th> </ tr> <tr> <td>Microbiology</td> &lt ;td> </td> <td /> </tr> <tr> <th colspan="10">URINALYSIS, ROUTINE - 04/08/17 15:19& lt;/th> </tr> <tr> <td>UA LEUKOCYTE ESTERASE DIPSTICK</td> <td>2+ </td> <td& gt;NEGATIVE</td> </tr> <tr> <td> UA NITRITE DIPSTICK</td> <td>POSITIVE </td> <td>NEGATIVE</td> </tr> <tr> < td>UA PROTEIN DIPSTICK</td> <td>TRACE </td> <td>NEGATIVE</td> </tr> <tr> <td>UA GLUCOSE DIPSTICK</td> <td>NEGATIVE </td&gt ; <td>NEGATIVE</td> </tr> <tr> <td>UA KETONE DIPSTICK</td> <td>TRACE</td& gt; <td>NEGATIVE</td> </tr> <tr> <td>UA UROBILINOGEN DIPSTICK</td> <td> NORMAL </td> <td>NORMAL</td> </tr> <tr> <td>UA BILIRUBIN DIPSTICK</td> < td>NEGATIVE </td> <td>NEGATIVE</td> </tr > <tr> <td>UA BLOOD DIPSTICK</td> <td>3+ </td> <td>NEGATIVE</td> </tr&gt ; <tr> <td>UA SPECIFIC GRAVITY</td> & lt;td>1.015 </td> <td>1.015-1.025</td> < /tr> <tr> <td>UR PH</td> <td&gt ;5.0 </td> <td>5.0-7.0</td> </tr> <tr> <thcolspan="10">UA MICROSCOPIC - 04/08/17 15:19</th> </tr> <tr> <td>UA AMORPHOUS SEDIMENT</td> <td>NEGATIVE </td> < td /> </tr> <tr> <td>UA BACTERIA< /td> <td>3+ </td> <td>NEGATIVE</td> </tr> <tr> <td>UA EPITHELIAL CELLS</td& gt; <td>3+ epi/hpf</td> <td>0 - 1+</td> </tr> <tr> <td>UA MUCUS</td> <td>NEGATIVE </td> <td>NEG TO 1+</td> </tr> <tr> <td>UA RBC</td> & lt;td>3-5 rbc/hpf</td> <td>0 - 3</td> </ tr> <tr> <td>UA TRICHOMONAS</td> & lt;td>NEGATIVE </td> <td>NEGATIVE</td> </tr& gt; <tr> <td>UA VOLUME FOR EXAM</td> <td>12.0 mL</td> <td>(12mL STD)</td> &lt ;/tr> <tr> <td>UA URIC ACID CRYSTALS</td> <td>PRESENT </td> <td>NEGATIVE</td> </tr> <tr> <td>UA WBC</td> <td& gt;10-20 wbc/hpf</td> <td>0 - 5</td> </tr& gt; <tr> <td>UA YEAST</td> <td> NEGATIVE </td> <td>NEGATIVE</td> </tr> &lt ;tr> <th colspan="10">UR SODIUM - 04/08/ 15:19< /th> </tr> <tr> <td>UR SODIUM COMMENT</td> <td>RANDOM </td> <td /> </tr> <tr> <td>UR SODIUM LEVEL</td& gt; <td>47 mmol/L</td> <td>20-40</td> </tr> <tr> <thcolspan="10"> UR CREATININE - 04/08/17 15:19</th> </tr> <tr> <td>UR CREATININE COMMENT</td> <td>RANDOM & lt;/td> <td /> </tr> <tr> <td&gt ;UR CREATININE LEVEL</td> <td>90.4 mg/dL</td> <td>44-467</td> </tr> <tr> <th colspan="10">URINE CULTURE - 04/08/17 15:19</th> </tr& gt; <tr> <td>Microbiology</td> <td > </td> <td /> </tr> <tr> <th colspan="10">GLUCOSE (POC) - 04/08/17 16:30</th&gt ; </tr> <tr> <td>GLUCOSE (POC)</td& gt; <td>194 mg/dL</td> <td>70-99</td> </tr> <tr> <th colspan="10"> GLUCOSE (POC) -04/08/17 16:30</th> </tr> <tr> <td>GLUCOSE (POC)</td> <td>194 mg/dL</td& gt; <td>70-99</td> </tr> <tr> <th colspan="10">GLUCOSE (POC) - 04/08/17 20:37</th&gt ; </tr> <tr> <td>GLUCOSE (POC)</td& gt; <td>132 mg/dL</td> <td>70-99</td> </tr> <tr> <th colspan="10">GLUCOSE (POC) - 04/08/17 20:37</th> </tr> <tr> <td >GLUCOSE (POC)</td> <td>132 mg/dL</td> <td& gt;70-99</td> </tr> <tr> <th colspan ="10">CBC W/DIFF - 04/09/17 04:01</th> </tr> <tr> <td>COMMENT</td> <td> REVIEWED </td> <td /> </tr> <tr> <td>EOSINOPHIL #</td> <td>0.1 k/cumm</td > <td>0.1-0.5</td> </tr> <tr> <td>EOSINOPHIL %</td> <td>1 &# 37;</td> <td>2-4</td> </tr> < tr> <td>GRANULOCYTE #</td> <td>8.4 k/cumm </td> <td>2.0-9.0</td> </tr> < tr> <td>GRANULOCYTE %</td> <td>75 & amp;#37;</td> <td>50-75</td> </tr> <tr > <td>LYMPHOCYTE #</td> <td>1.7 k/cumm&lt ;/td> <td>1.0-4.0</td> </tr> <tr& gt; <td>LYMPHOCYTE %</td> <td>15 & amp;#37;</td> <td>20-30</td> </tr> <tr> <td>MEAN CELL HGB</td> <td> 27.8 pg</td> <td>27.0-33.0</td> </tr> <tr> <td>MEAN CELL HGB CONCENTRATION</td> <td>30.1 g/dL</td> <td>32.0-37.0</td> </tr> <tr> <td>MEAN CELL VOLUME</td&gt ; <td>92.4 fl</td> <td>80.0-100.0</td&gt ; </tr> <tr> <td>MONOCYTE #</td> <td>1.0 k/cumm</td> <td>0.1-1.0</td> </tr> <tr> <td>MONOCYTE %</td > <td>9 %</td> <td>4-6</td&gt ; </tr> <tr> <td>RED BLOOD CELL</td> <td>3.31 m/cumm</td> <td>4.00-6.00</td&gt ; </tr> <tr> <td>RED CELL DISTRIBUTION WIDTH</td> <td>16.9 %</td> <td&gt ;11.0-15.6</td> </tr> <tr> <td> WHITE BLOOD CELL</td> <td>11.3 k/cumm</td> & lt;td>5.0-10.0</td> </tr> <tr> <td >HEMOGLOBIN</td> <td>9.2 gm/dL</td> < td>12.0-16.0</td> </tr> <tr> <td& gt;HEMATOCRIT</td> <td>30.6 %</td> < td>37.0-47.0</td> </tr> <tr> <td& gt;PLATELET COUNT</td> <td>333 k/cumm</td> & lt;td>150-450</td> </tr> <tr> < th colspan="10">METABOLIC PANEL, BASIC - 04/09/17 04:01</th> </tr> <tr> <td>POTASSIUM</td> <td>4.6 mmol/L</td> <td>3.5-5.3</td> </tr> <tr> <td>EST GFR (MDRD)</td&gt ; <td>40 mL/min</td> <td>> 59</td& gt; </tr> <tr> <td>ANION GAP</td&gt ; <td>9 mmol/L</td> <td>5-15</td> </tr> <tr> <td>EST CrCl(CG)</td> <td>56 mL/min</td> <td>> 59</td> </tr> <tr> <td>GLUCOSE</td> <td>110 mg/dL</td> <td>70-99</td> < /tr> <tr> <td>CALCIUM</td> <td& gt;8.9 mg/dL</td> <td>8.5-10.1</td> </tr> <tr> <td>BLOOD UREA NITROGEN</td> & lt;td>53 mg/dL</td> <td>7-20</td> </tr& gt; <tr> <td>CREATININE</td> <td>1.3 mg/dL</td> <td>0.6-1.0</td> </tr> <tr> <td>SODIUM</td> <td>144 mmol/L& lt;/td> <td>135-148</td> </tr> < tr> <td>CHLORIDE</td> <td>108 mmol/L</ td> <td>98-110</td> </tr> <tr&gt ; <td>CARBON DIOXIDE</td> <td>27 mmol/L</td& gt; <td>21-32</td> </tr> <tr> <th colspan="10">CBC W/DIFF - 04/09/17 04:01</th> </tr> <tr> <td>COMMENT</td> <td>REVIEWED </td> <td /> </tr> <tr> <td>EOSINOPHIL #</td> <td> 0.1 k/cumm</td> <td>0.1-0.5</td> </tr> <tr> <td>EOSINOPHIL %</td> & lt;td>1 %</td> <td>2-4</td> </tr > <tr> <td>GRANULOCYTE #</td> < td>8.4 k/cumm</td> <td>2.0-9.0</td> </tr > <tr> <td>GRANULOCYTE %</td> < td>75 %</td> <td>50-75</td> </tr > <tr> <td>LYMPHOCYTE #</td> < td>1.7 k/cumm</td> <td>1.0-4.0</td> </tr > <tr> <td>LYMPHOCYTE %</td> <td>15 %</td> <td>20-30</td></tr > <tr> <td>MEAN CELL HGB</td> < td>27.8 pg</td> <td>27.0-33.0</td> </tr& gt; <tr> <td>MEAN CELL HGB CONCENTRATION</td> <td>30.1 g/dL</td> <td>32.0-37.0</td&gt ; </tr> <tr> <td>MEAN CELL VOLUME</ td> <td>92.4 fl</td> <td>80.0-100.0</ td> </tr> <tr> <td>MONOCYTE #</td > <td>1.0 k/cumm</td> <td>0.1-1.0</td& gt; </tr> <tr> <td>MONOCYTE %& lt;/td> <td>9 %</td> <td>4-6</ td> </tr> <tr> <td>RED BLOOD CELL&lt ;/td> <td>3.31 m/cumm</td> <td>4.00-6.00& lt;/td> </tr> <tr> <td>RED CELL DISTRIBUTION WIDTH</td> <td>16.9 %</td> <td>11.0-15.6</td> </tr> <tr> <td>WHITE BLOOD CELL</td> <td>11.3 k/cumm</td& gt; <td>5.0-10.0</td> </tr> <tr> <td>HEMOGLOBIN</td> <td>9.2 gm/dL</td&gt ; <td>12.0-16.0</td> </tr> <tr> <td>HEMATOCRIT</td> <td>30.6 %</td& gt; <td>37.0-47.0</td> </tr> <tr&gt ; <td>PLATELET COUNT</td> <td>333 k/cumm< /td> <td>150-450</td> </tr> <tr& gt; <th colspan="10">METABOLIC PANEL, BASIC - 04/09/17 04:01</th> </tr> <tr> <td> POTASSIUM</td> <td>4.6 mmol/L</td> <td&gt ;3.5-5.3</td> </tr> <tr> <td>EST GFR (MDRD)</td> <td>40 mL/min</td> <td&gt ;> 59</td> </tr> <tr> <td> ANION GAP</td> <td>9 mmol/L</td> <td>5 -15</td> </tr> <tr> <td>EST CrCl (CG)& lt;/td> <td>56 mL/min</td> <td>> 59&lt ;/td> </tr> <tr> <td>GLUCOSE</td& gt; <td>110 mg/dL</td> <td>70-99</td> </tr> <tr> <td>CALCIUM</td> <td>8.9 mg/dL</td> <td>8.5-10.1</td> </tr> <tr> <td>BLOOD UREA NITROGEN</td& gt; <td>53 mg/dL</td> <td>7-20</td> </tr> <tr> <td>CREATININE</td> <td>1.3mg/dL</td> <td>0.6-1.0</td> </tr> <tr><td>SODIUM</td> <td> 144 mmol/L</td> <td>135-148</td> </tr> <tr> <td>CHLORIDE</td> <td>108 mmol/L</td> <td>98-110</td> </tr> <tr> <td>CARBON DIOXIDE</td> <td>27 mmol/L </td> <td>21-32</td> </tr> <tr > <th colspan="10">GLUCOSE (POC) - 04/09/17 06:14&lt ;/th> </tr> <tr> <td>GLUCOSE (POC)& lt;/td> <td>111 mg/dL</td> <td>70-99</ td> </tr> <tr> <th colspan="10& quot;>GLUCOSE (POC) - 04/09/17 06:14</th> </tr> &lt ;tr> <td>GLUCOSE (POC)</td> <td>111 mg/dL </td> <td>70-99</td> </tr> <tr > <th colspan="10">GLUCOSE (POC) - 04/09/17 11:08&lt ;/th> </tr> <tr> <td>GLUCOSE (POC)& lt;/td> <td>147 mg/dL</td> <td>70-99</ td> </tr> <tr> <th colspan="10& quot;>GLUCOSE (POC) - 04/09/17 11:08</th> </tr> &lt ;tr> <td>GLUCOSE (POC)</td> <td>147 mg/dL< /td> <td>70-99</td> </tr> <tr&gt ; <th colspan="10">L900.0530 - 04/09/17 18:19</th&gt ; </tr> <tr> <td>Glucometer</td> <td>103 mg/dL</td> <td>65-110</td> </tr> <tr> <th colspan="10"> L900.0530 - 04/09/17 21:08</th> </tr> <tr> <td>Glucometer</td> <td>160 mg/dL</td> <td>65-110</td> </tr> <tr><th colspan="10">L900.0530 - 04/10/17 05:45</th> </tr& gt; <tr> <td>Glucometer</td> <td& gt;103 mg/dL</td> <td>65-110</td> </tr> <tr> <th colspan="10">L100.0050 - 05:46</th> </tr> <tr> <td>WBC - WHITE BLOOD COUNT</td> <td>11.3 T/MM3</td> <td>4.5-11.0</td> </tr> <tr> & lt;td>RED BLOOD COUNT</td><td>3.45 M/MM3</td> < td>4.00-5.20</td> </tr> <tr> <td& gt;HGB - HEMOGLOBIN</td> <td>9.5 GM/DL</td> <td& gt;12-16</td> </tr> <tr> <td>HCT - HEMATOCRIT</td> <td>32.6 %</td> & lt;td>36-46</td></tr> <tr> <td>MEAN CORPUSCULAR VOLUME</td> <td>94.5 UM3</td> & lt;td>80-100</td> </tr> <tr> <td> MEAN CORPUSCULAR HGB</td> <td>27.5 UUG</td> <td>26-34</td> </tr> <tr> <td& gt;MEAN CORPUSCULAR HGB CONC(MCHC</td> <td>29.1 GM/DL</ td> <td>31-37</td></tr> <tr> <td>RDW STANDARD DEVIATION</td> <td>54.1 FL</td& gt; <td>36.9-50.2</td> </tr> <tr&gt ; <td>PLT - PLATELET COUNT</td> <td>362 T/MM3< /td> <td>130-400</td> </tr> <tr& gt; <td>MEAN PLATELET VOLUME</td> <td>9.0 UM3</td> <td>9.4-12.4</td> </tr> <tr> <td>NEUTROPHILS % (AUTO)</td> & lt;td>70.7 %</td> <td>33-66</td> & lt;/tr> <tr> <td>LYMPHOCYTES % (AUTO)</ td> <td>17.9 %</td> <td>23-45< /td> </tr> <tr> <td>MONOCYTES &# 37; (AUTO)</td> <td>8.2 %</td> < td>0-9.0</td> </tr> <tr> <td> EOSINOPHILS % (AUTO)</td> <td>1.4 %</td& gt; <td>0-4</td> </tr> <tr> <td>BASOPHILS % (AUTO)</td> <td>0.3 &amp ;#37;</td> <td>0-2</td> </tr> &lt ;tr> <td>IMMATURE GRANULOCYTE % (AUTO)</td> <td>1.5 %</td> <td>0.0-0.5</td> </tr> <tr> <td>NEUTROPHILS # (AUTO)</ td> <td>8.0 T/MM3</td> <td>1.8-7.7</td > </tr> <tr> <td>LYMPHOCYTES # (AUTO )</td> <td>2.0 T/MM3</td> <td>1-4.8&lt ;/td> </tr> <tr> <td>MONOCYTES # ( AUTO)</td> <td>0.9 T/MM3</td> <td>0- 0.8</td> </tr> <tr> <td> EOSINOPHILS # (AUTO)</td> <td>0.2 T/MM3</td> <td>0-0.5</td> </tr> <tr> < td>BASOPHILS # (AUTO)</td> <td>0.0 T/MM3</td> <td>0-0.2</td> </tr> <tr> & lt;td>IMMATURE GRANULOCYTE # (AUTO)</td> <td>0.17 T/MM3& lt;/td> <td>0.00-0.03</td> </tr> &lt ;tr> <th colspan="10">L200.0050 - 04/10/17 05:46< /th> </tr> <tr> <td>FUNGAL CULTURE.& lt;/td> <td>1.2 MG/DL</td> <td>0.7-1.2&lt ;/td> </tr> <tr> <td>FUNGAL CULTURE, BLOOD.</td> <td>38 RATIO</td> <td>6-26 </td> </tr> <tr> <td>NA - Sodium< /td> <td>146 MEQ/L</td> <td>134-144</ td> </tr> <tr> <td>Potassium</td& gt; <td>4.8 MEQ/L</td> <td>3.6-5</td> & lt;/tr> <tr> <td>Chloride</td> &lt ;td>108 MEQ/L</td> <td>98-107</td> </tr& gt; <tr> <td>CO2 - Carbon Dioxide</td> <td>31 MEQ/L</td> <td>22-30</td> < /tr> <tr> <td>Anion Gap</td> <td >7 MEQ/L</td> <td>5-15</td> </tr> & lt;tr> <td>BUN - Blood Urea Nitrogen</td> < td>45.0 MG/DL</td> <td>7-17</td> </tr> <tr> <td>Glomerular Filtration Rate</td> <td>44 </td> <td>NRG</td> </tr&gt ; <tr> <td>Glucose</td> <td>119 MG/DL& lt;/td> <td>65-110</td> </tr> <tr > <td>Osmolality,Calculated</td> <td>294 MOSM/ KG</td> <td>261-280</td> </tr> <tr&gt ; <td>Calcium</td> <td>9.6 MG/DL</td> <td>8.4-10.2</td> </tr> <tr> <td>LICTERUS</td> <td>< 2 </td> <td>0-7</td> </tr> <tr> < td>LHEMOLYSIS</td> <td>< 15 </td> &lt ;td>0-25</td> </tr> <tr> <td> LTURBIDITY</td> <td>< 20 </td> <td >0-20</td> </tr> <tr> <th colspan ="10">L900.0504/10/17 11:02</th> </tr> <tr> <td>Glucometer</td> <td>175 mg/dL</td> <td>65-110</td> </tr> <tr> <th colspan="10">L900.0504/10/17 13:59</th& gt; </tr> <tr> <td>Glucometer</td&gt ; <td>118 mg/dL</td> <td>65-110</td> </tr> <tr> <th colspan="10"> L900.0530 04/10/17 17:03</th> </tr> <tr> <td>Glucometer</td> <td>121 mg/dL</td> <td>65-110</td> </tr> <tr> < th colspan="10">L900.0530 - 04/10/17 19:46</th> </ tr> <tr> <td>Glucometer</td> < td>210 mg/dL</td> <td>65-110</td> </tr& gt; <tr> <th colspan="10">L100.0050 - 03:55</th> </tr> <tr> <td> WBC - WHITE BLOOD COUNT</td> <td>12.2 T/MM3</td> <td>4.5-11.0</td> </tr> <tr> <td>RED BLOOD COUNT</td> <td>3.34 M/MM3</td&gt ; <td>4.00-5.20</td> </tr> <tr> <td>HGB - HEMOGLOBIN</td> <td>9.3 GM/DL</td&gt ; <td>12-16</td> </tr> <tr> <td>HCT - HEMATOCRIT</td> <td>31.8 %< /td> <td>36-46</td> </tr> <tr> <td>MEAN CORPUSCULAR VOLUME</td> <td>95.2 UM3 </td> <td>80-100</td> </tr> <tr& gt; <td>MEAN CORPUSCULAR HGB</td> <td>27.8 UUG</td> <td>26-34</td> </tr> &lt ;tr> <td>MEAN CORPUSCULAR HGB CONC(MCHC</td> <td >29.2 GM/DL</td> <td>31-37</td> </tr> <tr> <td>RDW STANDARD DEVIATION</td> & lt;td>54.3 FL</td> <td>36.9-50.2</td> </ tr> <tr> <td>PLT - PLATELET COUNT</td> <td>357 T/MM3</td> <td>130-400</td> </tr> <tr> <td>MEAN PLATELET VOLUME</td& gt; <td>9.2 UM3</td> <td>9.4-12.4</td&gt ; </tr> <tr> <td>NEUTROPHILS % (AUTO)</td> <td>81.9 %</td> <td& gt;33-66</td> </tr> <tr> <td> LYMPHOCYTES % (AUTO)</td> <td>10.5 %</td&gt ; <td>23-45</td> </tr> <tr> <td>MONOCYTES % (AUTO)</td> <td>6.3 % </td> <td>0-9.0</td> </tr> <tr > <td>EOSINOPHILS % (AUTO)</td> <td& gt;0.2 %</td> <td>0-4</td> </tr&gt ; <tr> <td>BASOPHILS % (AUTO)</td> <td>0.2 %</td> <td>0-2</td></ tr> <tr> <td>IMMATURE GRANULOCYTE % (AUTO )</td> <td>0.9 %</td> <td>0.0-0.5& lt;/td> </tr> <tr> <td>NEUTROPHILS # ( AUTO)</td> <td>10.0 T/MM3</td> <td>1.8 -7.7</td> </tr> <tr> <td> LYMPHOCYTES # (AUTO)</td> <td>1.3 T/MM3</td> <td>1-4.8</td> </tr> <tr> < td>MONOCYTES # (AUTO)</td><td>0.8 T/MM3</td> < td>0-0.8</td> </tr> <tr> <td> EOSINOPHILS # (AUTO)</td> <td>0.0 T/MM3</td> <td& gt;0-0.5</td> </tr> <tr> <td> BASOPHILS # (AUTO)</td> <td>0.0 T/MM3</td> & lt;td>0-0.2</td> </tr> <tr> <td& gt;IMMATURE GRANULOCYTE # (AUTO)</td> <td>0.11 T/MM3</td > <td>0.00-0.03</td> </tr> <tr&gt ; <th colspan="10">L200.0050 - 04/11/17 03:55</th&gt ; </tr> <tr> <td>FUNGAL CULTURE.</td& gt; <td>1.2 MG/DL</td> <td>0.7-1.2</td&gt ; </tr> <tr> <td>FUNGAL CULTURE, BLOOD. </td> <td>41 RATIO</td> <td>6-26</ td> </tr> <tr> <td>NA - Sodium</ td> <td>143 MEQ/L</td> <td>134-144</td > </tr> <tr> <td>Potassium</td> <td>5.1 MEQ/L</td> <td>3.6-5</td> </tr> <tr> <td>Chloride</td> & lt;td>108 MEQ/L</td> <td>98-107</td> </ tr> <tr> <td>CO2 - Carbon Dioxide</td> <td>29 MEQ/L</td> <td>22-30</td> < /tr> <tr> <td>Anion Gap</td> <td& gt;6 MEQ/L</td> <td>5-15</td> </tr> <tr> <td>BUN - Blood Urea Nitrogen</td> <td>49.0 MG/DL</td> <td>7-17</td> </ tr> <tr> <td>Glomerular Filtration Rate</td&gt ; <td>44 </td> <td>NRG</td> </ tr> <tr> <td>Glucose</td> <td& gt;105 MG/DL</td> <td>65-110</td> </tr> <tr> <td>Osmolality,Calculated</td> <td>288 MOSM/KG</td> <td>261-280</td> & lt;/tr> <tr> <td>Calcium</td><td>9.6 MG/DL</td> <td>8.4-10.2</td> </tr> <tr> <td>LICTERUS</td> <td>&lt ; 2 </td> <td>0-7</td> </tr> < tr> <td>LHEMOLYSIS</td> <td>< 15 </ td> <td>0-25</td> </tr><tr> <td>LTURBIDITY</td> <td>< 20 </td> &lt ;td>0-20</td> </tr> <tr> <th colspan="10">L900.0504/11/17 04:53</th> </tr& gt; <tr> <td>Glucometer</td> <td& gt;102 mg/dL</td> <td>65-110</td> </tr> <tr> <th colspan="10">L900.0504/11/17 08:44</th> </tr> <tr> <td> Glucometer</td><td>109 mg/dL</td> <td>65-110&lt ;/td> </tr> <tr> <th colspan="10& quot;>L900.0504/11/17 11:14</th> </tr> <tr& gt; <td>Glucometer</td> <td>176 mg/dL</td > <td>65-110</td> </tr> <tr> <th colspan="10">L900.0530 04/11/17 14:07</th> </tr> <tr> <td>Glucometer</td> <td>278 mg/dL</td> <td>65-110</td> </tr> <tr> <th colspan="10"> L900.0504/11/17 18:50</th> </tr> <tr> <td>Glucometer</td> <td>340 mg/dL</td> <td>65-110</td> </tr> <tr> <th colspan="10">L900.0504/11/17 19:26</th> </tr& gt; <tr> <td>Glucometer</td> <td& gt;273 mg/dL</td> <td>65-110</td> </tr> <tr> <th colspan="10">L900.05 05:49</th> </tr> <tr> <td> Glucometer</td> <td>142 mg/dL</td> <td&gt ;65-110</td> </tr> <tr> <th colspan= "10">L900.0504/12/17 10:51</th> </tr> <tr> <td>Glucometer</td> <td>225 mg /dL</td> <td>65-110</td> </tr> & lt;tr> <th colspan="10">L900.0530 - 04/12/17 14:08& lt;/th> </tr> <tr> <td>Glucometer</ td> <td>217 mg/dL</td> <td>65-110</td& gt; </tr> <tr> <th colspan="10"& gt;L200.0050 - 04/12/17 19:15</th> </tr> <tr> <td>POTASSIUM</td> <td>Urine, Clean Catch &lt ;/td> <td>NRG</td> </tr> <tr> <td>CHLORIDE</td> <td>YELLOW </td> <td>YELLOW</td> </tr> <tr> <td> ANION GAP</td> <td>SL CLOUDY </td> <td>NRG&lt ;/td> </tr> <tr> <td>BLOOD UREA NITROGEN</td> <td>5.0 </td> <td>5.0- 8.0</td> </tr> <tr> <td>BUN/ CREATININE RATIO</td> <td>NEGATIVE </td> &lt ;td>NEGATIVE</td> </tr> <tr> <td& gt;GLUCOSE</td> <td>NEGATIVE </td> <td&gt ;NEGATIVE</td> </tr> <tr> <td> CALCIUM</td> <td>NEGATIVE </td> <td> NEGATIVE</td> </tr> <tr> <td>BILIRUBIN, CONJUG &amp; UNCONJUG</td> <td>NEGATIVE </td&gt ; <td>NEGATIVE</td> </tr> <tr> <td>TOTAL PROTEIN</td> <td>10-20 /HPF</td& gt; <td>0-3</td> </tr> <tr> & lt;td>ALBUMIN</td> <td>30-50 /HPF</td> & lt;td>0-5</td> </tr> <tr> <td> ALBUMIN/GLOBULIN RATIO</td> <td>5-10 </td> & lt;td>NRG</td> </tr> <tr> <td> CKMB</td> <td>3+ </td> <td>NEGATIVE&lt ;/td> </tr> <tr> <td>GENTAMICIN, RANDOM</td> <td>Cult reflexed &setup </td> <td>NRG</td> </tr> <tr> & lt;td>Specific [place],Urine</td> <td>1.020 </td> <td>1.015-1.025</td> </tr> <tr> <td>Leukocyte Esterase,Urine</td> <td>3+ & lt;/td> <td>NEGATIVE</td> </tr> < tr><td>Nitrate,Urine</td> <td>NEGATIVE </td&gt ; <td>NEGATIVE</td> </tr> <tr> <td>Urobilinogen,Urine</td> <td>0.2 EU/DL</td > <td>NORMAL</td> </tr><tr> <td>Occult Blood,Urine - Dipstick</td> <td>3+ </td > <td>NEGATIVE</td> </tr> <tr&gt ; <th colspan="10">M120.0100 - 04/12/17 19:15</th&gt ; </tr> <tr> <td>Urine Culture</td> <td> CFU/ml</td> <td>NRG</td> & lt;/tr> <tr> <th colspan="10"> L900.0530 - 04/12/17 21:39</th> </tr> <tr> <td>Glucometer</td> <td>211 mg/dL</td> <td>65-110</td> </tr> <tr> & lt;th colspan="10">L200.0050 - 04/13/17 04:36</th> </tr& gt; <tr> <td>FUNGAL CULTURE.</td> &lt ;td>1.3 MG/DL</td> <td>0.7-1.2</td> </tr > <tr> <td>FUNGAL CULTURE, BLOOD.</td> < td>46 RATIO</td> <td>6-26</td> </tr> <tr> <td>NA - Sodium</td> <td>142 MEQ/L</td> <td>134-144</td> </tr> <tr> <td>Potassium</td> <td>5.1 MEQ/ L</td> <td>3.6-5</td> </tr> < tr> <td>Chloride</td> <td>107 MEQ/L</td > <td>98-107</td> </tr> <tr> <td>CO2 - Carbon Dioxide</td> <td>26 MEQ/L</td& gt; <td>22-30</td> </tr> <tr> <td>Anion Gap</td> <td>9 MEQ/L</td> <td>5-15</td> </tr> <tr> & lt;td>BUN - Blood Urea Nitrogen</td> <td>60.0 MG/DL</ td> <td>7-17</td> </tr> <tr> <td>Glomerular Filtration Rate</td> <td>40 & lt;/td> <td>NRG</td> </tr> <tr&gt ; <td>Glucose</td> <td>122 MG/DL</td> <td>65-110</td> </tr> <tr> <td>Osmolality,Calculated</td> <td>291 MOSM/KG& lt;/td> <td>261-280</td> </tr> <tr> <td>Calcium</td> <td>9.4 MG/DL</td> <td>8.4-10.2</td> </tr> <tr> <td>LICTERUS</td> <td>< 2 </td> <td>0-7</td> </tr> <tr> & lt;td>LHEMOLYSIS</td> <td>< 15 </td> <td>0-25</td> </tr> <tr> < td>LTURBIDITY</td> <td>< 20 </td> <td>0-20</td> </tr> <tr> <th colspan="10">L100.0050 - 04/13/17 04:36</th> </tr& gt; <tr> <td>WBC - WHITE BLOOD COUNT</td> <td>11.5 T/MM3</td> <td>4.5-11.0</td> & lt;/tr> <tr> <td>RED BLOOD COUNT</td> <td>3.30 M/MM3</td> <td>4.00-5.20</td> </tr> <tr> <td>HGB - HEMOGLOBIN</td&gt ; <td>9.3 GM/DL</td> <td>12-16</td> </tr> <tr> <td>HCT - HEMATOCRIT</td& gt; <td>31.5 %</td> <td>36-46</td > </tr> <tr> <td>MEAN CORPUSCULAR VOLUME</td> <td>95.5 UM3</td> <td>80- 100</td> </tr> <tr> <td>MEAN CORPUSCULAR HGB</td> <td>28.2 UUG</td> < td>26-34</td> </tr> <tr> <td> MEANCORPUSCULAR HGB CONC(MCHC</td> <td>29.5 GM/DL</td&gt ; <td>31-37</td> </tr> <tr> <td>RDW STANDARD DEVIATION</td> <td>55.6 FL</ td> <td>36.9-50.2</td> </tr> <tr&gt ; <td>PLT - PLATELET COUNT</td> <td>356 T/ MM3</td> <td>130-400</td> </tr> & lt;tr> <td>MEAN PLATELET VOLUME</td> <td> 9.0 UM3</td> <td>9.4-12.4</td> </tr> <tr> <th colspan="10">L100.0105 - 10 04:36</th> </tr> <tr> <td> NEUTROPHILS %(MANUAL)</td> <td>85.0 %</ td> <td>33-66</td> </tr> <tr> <td>BAND NEUTROPHILS %</td> <td>2.0 &#37 ;</td> <td>0-6</td> </tr> <tr& gt; <td>LYMPHOCYTES % (MANUAL)</td> <td >10.0 %</td> <td>23-45</td> </tr > <tr> <td>MONOCYTES % (MANUAL)</td&gt ; <td>3.0 %</td> <td>0-9.0</td&gt ; </tr> <tr> <td>PROLYMPHOCYTES &# 37;</td> <td>9.8 T/MM3</td> <td>1.8- 7.7</td> </tr> <tr> <td>PLASMA CELLS %</td> <td>0.2 T/MM3</td> < td>NRG</td> </tr> <tr> <td> NEUTROPHILS # (MANUAL)</td> <td>0.3 T/MM3</td> <td>0-0.8</td> </tr> <tr> &lt ;td>MACROCYTOSIS</td> <td>1+ </td> <td> NRG</td> </tr> <tr> <td> POLYCHROMASIA</td> <td>2+ </td> <td> NRG</td> </tr> <tr> <td> Lymphocytes # (Manual)</td> <td>1.2 T/MM3</td> <td>1-4.8</td> </tr> <tr> <td> LRBCMOR</td> <td>Abnormal </td> <td> NRG</td> </tr> <tr> <th colspan=& quot;10">L900.52904/13/17 05:53</th> </tr> <tr> <td>Glucometer</td> <td>121 mg/ dL</td> <td>65-110</td> </tr> &lt ;tr> <th colspan="10">L900.0504/13/17 10:05< /th> </tr> <tr> <td>Glucometer</ td> <td>172 mg/dL</td> <td>65-110</td& gt; </tr> <tr> <th colspan="10"> L900.0504/13/17 14:21</th> </tr> <tr> & lt;td>Glucometer</td> <td>222 mg/dL</td> <td& gt;65-110</td> </tr> <tr> <th colspan="10">L900.52904/13/17 21:24</th> </tr& gt; <tr> <td>Glucometer</td> <td& gt;204 mg/dL</td> <td>65-110</td> </tr> <tr> <th colspan="10">L200.0050 - 03:53</th> </tr> <tr> <td> FUNGAL CULTURE.</td> <td>1.2 MG/DL</td> <td& gt;0.7-1.2</td> </tr> <tr> <td>FUNGAL CULTURE, BLOOD.</td> <td>46 RATIO</td> < td>6-26</td> </tr> <tr> <td> NA - Sodium</td> <td>141 MEQ/L</td> <td& gt;134-144</td></tr> <tr> <td>Potassium& lt;/td> <td>5.1 MEQ/L</td> <td>3.6-5</ td> </tr> <tr> <td>Chloride</td& gt; <td>108 MEQ/L</td> <td>98-107</td&gt ; </tr> <tr> <td>CO2 - Carbon Dioxide</td > <td>27 MEQ/L</td> <td>22-30</td> </tr> <tr> <td>Anion Gap</td> <td>6 MEQ/L</td> <td>5-15</td> </tr& gt; <tr> <td>BUN - Blood Urea Nitrogen</td> <td>55.0 MG/DL</td> <td>7-17</td> & lt;/tr> <tr> <td>Glomerular Filtration Rate</ td> <td>44 </td> <td>NRG</td> </tr> <tr> <td>Glucose</td> & lt;td>134 MG/DL</td> <td>65-110</td> </ tr> <tr> <td>Osmolality,Calculated</td> <td>288 MOSM/KG</td> <td>261-280</td> </tr> <tr> <td>Calcium</td> <td>9.3 MG/DL</td> <td>8.4-10.2</td> </tr> <tr> <td>LICTERUS</td> <td>< 2 </td> <td>0-7</td> </ tr> <tr><td>LHEMOLYSIS</td> <td>& lt; 15 </td> <td>0-25</td> </tr> <tr> <td>LTURBIDITY</td> <td>< 20 </td> <td>0-20</td> </tr> < tr> <th colspan="10">L100.0050 - 04/14/17 03:53</ th> </tr> <tr> <td>WBC - WHITE BLOOD COUNT</td> <td>9.3 T/MM3</td> <td>4.5- 11.0</td> </tr> <tr> <td>RED BLOOD COUNT</td> <td>3.33 M/MM3</td> <td& gt;4.00-5.20</td> </tr> <tr> <td> HGB - HEMOGLOBIN</td> <td>9.3 GM/DL</td> <td> 12-16</td> </tr> <tr> <td>HCT - HEMATOCRIT</td> <td>31.8 %</td> <td&gt ;36-46</td> </tr> <tr> <td>MEAN CORPUSCULAR VOLUME</td> <td>95.5 UM3</td> & lt;td>80-100</td> </tr> <tr> <td> MEAN CORPUSCULAR HGB</td> <td>27.9 UUG</td> <td>26-34</td> </tr> <tr> <td> MEAN CORPUSCULAR HGB CONC(MCHC</td> <td>29.2 GM/DL</td& gt; <td>31-37</td> </tr> <tr> <td>RDW STANDARDDEVIATION</td> <td>57.4 FL</td& gt; <td>36.9-50.2</td> </tr> <tr> <td>PLT - PLATELET COUNT</td> <td>284 T/MM3& lt;/td> <td>130-400</td> </tr> < tr> <td>MEAN PLATELET VOLUME</td> <td>9.2 UM3</td> <td>9.4-12.4</td> </tr> <tr> <th colspan="10">L100.0105 - 10 03:53& lt;/th> </tr> <tr> <td>NEUTROPHILS & amp;#37; (MANUAL)</td> <td>82.0 %</td> <td>33-66</td> </tr> <tr> &lt ;td>BAND NEUTROPHILS %</td> <td>1.0 %&lt ;/td> <td>0-6</td> </tr> <tr> <td>LYMPHOCYTES % (MANUAL)</td> <td&gt ;12.0 %</td> <td>23-45</td> </tr&gt ; <tr> <td>MONOCYTES % (MANUAL)</td> <td>5.0 %</td> <td>0-9.0</td> </tr> <tr> <td>PROLYMPHOCYTES &#37 ;</td> <td>7.6 T/MM3</td> <td>1.8-7.7& lt;/td> </tr> <tr> <td>PLASMA CELLS %</td> <td>0.1 T/MM3</td> <td>NRG </td> </tr> <tr> <td>NEUTROPHILS # (MANUAL)</td> <td>0.5 T/MM3</td> <td> 0-0.8</td> </tr> <tr> <td> NUCLEATED RED BLOOD CELLS</td> <td>1 </td> & lt;td>NRG</td> </tr> <tr> <td> MACROCYTOSIS</td> <td>1+ </td> <td>NRG </td> </tr> <tr> <td> POLYCHROMASIA</td> <td>2+ </td> <td> NRG</td> </tr> <tr> <td> SPHEROCYTES</td> <td>1+ </td> <td>NRG& lt;/td> </tr> <tr> <td>Lymphocytes # (Manual)</td> <td>1.1 T/MM3</td> <td&gt ;1-4.8</td> </tr> <tr> <td>LRBCMOR& lt;/td> <td>Abnormal</td> <td>NRG</td& gt; </tr> <tr> <th colspan="10"& gt;L900.52904/14/17 04:13</th> </tr> <tr> <td>Glucometer</td> <td>132 mg/dL</td> <td>65-110</td> </tr> <tr> <th colspan="10">L900.52904/14/17 10:58</th> </tr> <tr> <td>Glucometer</td> <td>169 mg/dL</td> <td>65-110</td> </ tr> <tr> <th colspan="10">L900.52904/14/17 14:06</th> </tr> <tr> <td&gt ;Glucometer</td> <td>187mg/dL</td> <td&gt ;65-110</td> </tr> <tr> <th colspan= "10">L900.52904/14/17 20:24</th> </tr> <tr> <td>Glucometer</td> <td>218 mg /dL</td> <td>65-110</td> </tr> & lt;tr> <th colspan="10">L900.52904/15/17 05:10& lt;/th> </tr> <tr> <td>Glucometer&lt ;/td> <td>155 mg/dL</td> <td>65-110</ td> </tr> <tr> <th colspan="10& quot;>L900.52904/15/17 13:58</th> </tr> <tr& gt; <td>Glucometer</td> <td>239 mg/dL</td > <td>65-110</td> </tr> <tr> <th colspan="10">L900.52904/15/17 20:56</th> </tr> <tr> <td>Glucometer</td> <td>259 mg/dL</td> <td>65-110</td> </tr> <tr> <th colspan="10">L900.529 05:08</th> </tr> <tr> <td> Glucometer</td> <td>125 mg/dL</td> <td&gt ;65-110</td> </tr> <tr> <th colspan=& quot;10">L200.0050 - 04/16/17 05:37</th> </tr> <tr> <td>FUNGAL CULTURE.</td> <td>1.7 MG/DL</td> <td>0.7-1.2</td> </tr> <tr > <td>FUNGAL CULTURE, BLOOD.</td> <td>32 RATIO</td> <td>6-26</td> </tr> & lt;tr> <td>NA - Sodium</td> <td>142 MEQ/L </td> <td>134-144</td></tr> <tr> <td>Potassium</td> <td>5.2 MEQ/L</td> <td>3.6-5</td> </tr> <tr> <td>Chloride</td> <td>109 MEQ/L</td> <td>98-107</td> </tr> <tr> <td& gt;CO2 - Carbon Dioxide</td> <td>26 MEQ/L</td> <td>22-30</td> </tr> <tr> <td> Anion Gap</td> <td>7 MEQ/L</td> <td>5- 15</td> </tr> <tr> <td>BUN - Blood Urea Nitrogen</td> <td>54.0 MG/DL</td> & lt;td>7-17</td> </tr> <tr> <td&gt ;Glomerular Filtration Rate</td> <td>30 </td> <td>NRG</td> </tr> <tr> <td& gt;Glucose</td> <td>110 MG/DL</td> <td&gt ;65-110</td> </tr> <tr> <td> Osmolality,Calculated</td> <td>289 MOSM/KG</td> <td>261-280</td> </tr> <tr> <td>Calcium</td> <td>9.1 MG/DL</td> & lt;td>8.4-10.2</td> </tr> <tr> < td>LICTERUS</td> <td>< 2 </td> &lt ;td>0-7</td> </tr> <tr><td>LHEMOLYSIS& lt;/td> <td>< 15 </td> <td>0-25&lt ;/td> </tr> <tr> <td>LTURBIDITY</ td> <td>< 20 </td> <td>0-20</td > </tr> <tr> <th colspan="10"& gt;L100.0050 - 04/16/17 05:37</th> </tr> <tr> <td>WBC - WHITE BLOOD COUNT</td> <td>13.5 T/MM3& lt;/td> <td>4.5-11.0</td> </tr> < tr> <td>RED BLOOD COUNT</td> <td>2.74 M/ MM3</td> <td>4.00-5.20</td> </tr> <tr> <td>HGB - HEMOGLOBIN</td> <td>7.8 GM/ DL</td> <td>12-16</td> </tr> < tr> <td>HCT - HEMATOCRIT</td> <td>26.2 & amp;#37;</td> <td>36-46</td> </tr> & lt;tr> <td>MEAN CORPUSCULAR VOLUME</td> <td& gt;95.6 UM3</td> <td>80-100</td> </tr> <tr> <td>MEAN CORPUSCULAR HGB</td> < td>28.5 UUG</td> <td>26-34</td> </tr&gt ; <tr> <td>MEAN CORPUSCULAR HGB CONC(MCHC</td> <td>29.8 GM/DL</td> <td>31-37</td> &lt ;/tr> <tr> <td>RDW STANDARD DEVIATION</td> <td>61.0 FL</td> <td>36.9-50.2</td> </tr> <tr> <td>PLT - PLATELET COUNT</ td> <td>301 T/MM3</td> <td>130-400</td > </tr> <tr> <td>MEAN PLATELET VOLUME </td> <td>9.4 UM3</td> <td>9.4-12.4&lt ;/td> </tr> <tr> <td>NEUTROPHILS & amp;#37; (AUTO)</td> <td>78.8 %</td> <td>33-66</td> </tr> <tr> < td>LYMPHOCYTES % (AUTO)</td> <td>11.4 %</ td> <td>23-45</td> </tr> <tr> <td>MONOCYTES % (AUTO)</td> <td>8.7 &amp ;#37;</td> <td>0-9.0</td> </tr> & lt;tr> <td>EOSINOPHILS % (AUTO)</td> & lt;td>0.6 %</td> <td>0-4</td> </ tr> <tr> <td>BASOPHILS % (AUTO)</td&gt ; <td>0.1 %</td> <td>0-2</td> </tr> <tr> <td>IMMATURE GRANULOCYTE & amp;#37; (AUTO)</td> <td>0.4 %</td> < td>0.0-0.5</td> </tr> <tr> <td> NEUTROPHILS # (AUTO)</td> <td>10.6 T/MM3</td> <td>1.8-7.7</td> </tr> <tr> & lt;td>LYMPHOCYTES # (AUTO)</td> <td>1.5 T/MM3</td&gt ; <td>1-4.8</td> </tr> <tr> <td>MONOCYTES # (AUTO)</td> <td>1.2 T/MM3</td > <td>0-0.8</td> </tr> <tr> <td>EOSINOPHILS # (AUTO)</td> <td>0.1 T/MM3& lt;/td> <td>0-0.5</td> </tr> <tr> <td>BASOPHILS # (AUTO)</td> <td>0.0 T/MM3</td > <td>0-0.2</td> </tr> <tr> <td>IMMATURE GRANULOCYTE # (AUTO)</td> <td> 0.06 T/MM3</td> <td>0.00-0.03</td> </tr&gt ; <tr> <th colspan="10">L900.0530 - 07:33</th> </tr> <tr> <td> Glucometer</td> <td>200 mg/dL</td> <td>65- 110</td> </tr> <tr> <th colspan=& quot;10">B600.798 - 04/16/17 09:29</th> </tr> <tr> <td>BGIVEPC1</td> <td>1 Unit PC Issued </td> <td>NRG</td> </tr> & lt;tr> <th colspan="10">L100.0290 - 04/16/17 09:33& lt;/th> </tr> <tr> <td>HGB - HEMOGLOBIN</td> <td>6.6 GM/DL</td> <td&gt ;12-16</td> </tr> <tr> <td>HCT - HEMATOCRIT</td> <td>22.5 %</td> < td>36-46</td> </tr> <tr> <th colspan="10">B100.0700 - 04/16/17 09:33</th> </tr& gt; <tr> <td>BLOOD TYPE</td> <td>A Positive </td> <td>NRG</td> </tr> <tr> <td>ANTIBODY SCREEN</td> <td>NEGATIVE & lt;/td> <td>NRG</td> </tr> <tr&gt ; <th colspan="10">B110.1099 - 04/16/17 09:33</th&gt ; </tr> <tr> <td>BBT5</td> <td>A Positive </td> <td>NRG</td> </tr& gt; <tr> <th colspan="10">U500.0101 - 08/01 09:33</th> </tr> <tr> <td> U500.0101</td> <td>TRANSFUSED PRODUCT: Packed RBC Leuko- Red 1st COUNT: 4 </td> <td>NRG</td> </tr> <tr> <th colspan="10"> B600.798 - 04/16/17 13:28</th> </tr> <tr> <td>BGIVEPC1</td> <td>1 Unit PC Issued </td&gt ; <td>NRG</td> </tr> <tr> <th colspan="10">L100.0298 - 04/16/17 17:29</th> </tr> <tr> <td>HGB - HEMOGLOBIN</td> <td>9.0 GM/DL</td> <td>12-16</td> &lt ;/tr> <tr> <th colspan="10">L100.0398 - 04/16/17 17:29</th> </tr> <tr> <td >HCT - HEMATOCRIT</td> <td>29.1 %</td> & lt;td>36-46</td> </tr><tr> <th colspan=& quot;10">L900.0530 - 04/16/17 20:27</th> </tr> <tr> <td>Glucometer</td> <td>163 mg/ dL</td> <td>65-110</td> </tr> &lt ;tr> <th colspan="10">L900.0530 - 04/17/17 06:14< /th> </tr> <tr> <td>Glucometer</td&gt ; <td>139 mg/dL</td> <td>65-110</td> </tr> <tr> <th colspan="10"> L100.0050 - 04/17/17 08:17</th> </tr> <tr> <td>WBC - WHITE BLOOD COUNT</td> <td>9.8 T/MM3& lt;/td> <td>4.5-11.0</td> </tr> <tr& gt; <td>RED BLOOD COUNT</td> <td>3.12 M/MM3& lt;/td> <td>4.00-5.20</td> </tr> &lt ;tr> <td>HGB - HEMOGLOBIN</td> <td>8.9 GM/DL& lt;/td> <td>12-16</td> </tr> <tr& gt; <td>HCT - HEMATOCRIT</td> <td>29.3 & #37;</td> <td>36-46</td> </tr> &lt ;tr> <td>MEAN CORPUSCULAR VOLUME</td> <td&gt ;93.9 UM3</td> <td>80-100</td> </tr> <tr> <td>MEAN CORPUSCULAR HGB</td> < td>28.5 UUG</td> <td>26-34</td> </tr&gt ; <tr> <td>MEAN CORPUSCULAR HGB CONC(MCHC</td&gt ; <td>30.4 GM/DL</td> <td>31-37</td> </tr> <tr> <td>RDW STANDARD DEVIATION&lt ;/td> <td>57.2 FL</td> <td>36.9-50.2</ td> </tr> <tr> <td>PLT - PLATELET COUNT</td> <td>221 T/MM3</td> <td>130- 400</td> </tr> <tr> <td>MEAN PLATELET VOLUME</td> <td>9.0 UM3</td> <td& gt;9.4-12.4</td> </tr> <tr> <td> NEUTROPHILS % (AUTO)</td> <td>80.1 %</td > <td>33-66</td> </tr> <tr> <td>LYMPHOCYTES % (AUTO)</td> <td> 10.6 %</td> <td>23-45</td> </tr&gt ; <tr> <td>MONOCYTES % (AUTO)</td> <td>7.9 %</td> <td>0-9.0</td> </tr> <tr> <td>EOSINOPHILS % (AUTO) </td> <td>0.9 %</td> <td>0-4</td&gt ; </tr> <tr> <td>BASOPHILS % ( AUTO)</td> <td>0.2 %</td> <td> 0-2</td> </tr> <tr> <td>IMMATURE GRANULOCYTE % (AUTO)</td> <td>0.3 %</td& gt; <td>0.0-0.5</td> </tr> <tr> <td>NEUTROPHILS # (AUTO)</td> <td>7.8 T/MM3& lt;/td> <td>1.8-7.7</td> </tr> < tr> <td>LYMPHOCYTES # (AUTO)</td> <td> 1.0T/MM3</td> <td>1-4.8</td> </tr> <tr> <td>MONOCYTES # (AUTO)</td> <td& gt;0.8 T/MM3</td> <td>0-0.8</td> </tr> <tr> <td>EOSINOPHILS # (AUTO)</td> &lt ;td>0.1 T/MM3</td> <td>0-0.5</td> </tr& gt; <tr> <td>BASOPHILS # (AUTO)</td> <td& gt;0.0 T/MM3</td> <td>0-0.2</td> </tr> <tr> <td>IMMATUREGRANULOCYTE # (AUTO)</td> <td>0.03 T/MM3</td> <td>0.00-0.03</td> </tr> <tr> <th colspan="10"> L200.0050- 04/17/17 08:17</th> </tr> <tr> <td>FUNGAL CULTURE.</td> <td>1.1 MG/DL</td&gt ; <td>0.7-1.2</td> </tr> <tr> <td>FUNGAL CULTURE, BLOOD.</td> <td>37 RATIO& lt;/td> <td>6-26</td> </tr> <tr& gt; <td>NA - Sodium</td> <td>142 MEQ/L</ td> <td>134-144</td> </tr> <tr&gt ; <td>Potassium</td> <td>5.4 MEQ/L</td&gt ; <td>3.6-5</td> </tr> <tr> < td>Chloride</td> <td>110 MEQ/L</td> < td>98-107</td> </tr> <tr> <td> CO2 - Carbon Dioxide</td> <td>24 MEQ/L</td> <td >22-30</td> </tr> <tr> <td> Anion Gap</td> <td>8 MEQ/L</td> <td>5- 15</td> </tr> <tr> <td>BUN - Blood Urea Nitrogen</td> <td>41.0 MG/DL</td> <td>7-17</td> </tr> <tr> <td >Glomerular Filtration Rate</td> <td>49</td> <td>NRG</td> </tr> <tr> < td>Glucose</td> <td>132 MG/DL</td> <td >65-110</td> </tr> <tr> <td> Osmolality,Calculated</td> <td>285 MOSM/KG</td> <td>261-280</td> </tr> <tr> & lt;td>Calcium</td> <td>8.3 MG/DL</td> &lt ;td>8.4-10.2</td> </tr> <tr> <td& gt;LICTERUS</td><td>< 2 </td> <td>0-7&lt ;/td> </tr> <tr> <td>LHEMOLYSIS</ td> <td>< 15 </td> <td>0-25</td > </tr> <tr> <td>LTURBIDITY</td& gt; <td>< 20 </td> <td>0-20</td> </tr> <tr> <th colspan="10"> B600.798 - 04/17/17 10:39</th> </tr> <tr> <td>BGIVEPC1</td> <td>1 Unit PC Issued </td&gt ; <td>NRG</td> </tr> <tr> <th colspan="10">L900.0530 - 04/17/17 11:24</th> </tr> <tr> <td>Glucometer</td> <td>183 mg/dL</td> <td>65-110</td> </ tr> <tr> <th colspan="10">L900.0530 - 04/17/17 14:13</th> </tr> <tr> <td& gt;Glucometer</td> <td>168 mg/dL</td> <td >65-110</td> </tr> <tr> <th colspan="10">L100.0299 - 04/17/17 16:20</th> </tr& gt; <tr> <td>HGB - HEMOGLOBIN</td> & lt;td>9.3 GM/DL</td> <td>12-16</td> </tr > <tr> <th colspan="10">L900.0530 - 21:13</th> </tr> <tr> <td>Glucometer& lt;/td> <td>158 mg/dL</td> <td>65-110</td> </tr> <tr> <th colspan="10"> L900.0530 - 04/18/17 05:59</th> </tr> <tr> <td>Glucometer</td> <td>158 mg/dL</td> <td>65-110</td> </tr> <tr> & lt;th colspan="10">L100.0050 - 04/18/17 09:27</th> &lt ;/tr> <tr> <td>WBC - WHITE BLOOD COUNT</td&gt ; <td>6.3 T/MM3</td> <td>4.5-11.0</td&gt ; </tr> <tr> <td>RED BLOOD COUNT</td > <td>2.75 M/MM3</td> <td>4.00-5.20</ td> </tr> <tr> <td>HGB - HEMOGLOBIN& lt;/td> <td>7.8 GM/DL</td> <td>12-16</ td> </tr> <tr> <td>HCT - HEMATOCRIT& lt;/td> <td>26.2 %</td> <td>36-46 </td> </tr> <tr> <td>MEAN CORPUSCULAR VOLUME</td> <td>95.3 UM3</td> <td& gt;80-100</td> </tr> <tr> <td> MEAN CORPUSCULAR HGB</td> <td>28.4 UUG</td> <td>26-34</td></tr> <tr> <td>MEAN CORPUSCULAR HGB CONC(MCHC</td> <td>29.8 GM/DL</td> <td>31-37</td> </tr> <tr> <td>RDW STANDARD DEVIATION</td> <td>55.6 FL</td& gt; <td>36.9-50.2</td> </tr> <tr> <td>PLT - PLATELET COUNT</td> <td>174 T/MM3</td > <td>130-400</td> </tr> <tr> <td>MEAN PLATELET VOLUME</td> <td>9.6 UM3</ td> <td>9.4-12.4</td> </tr> <tr& gt; <td>NEUTROPHILS % (AUTO)</td> <td> 79.8 %</td> <td>33-66</td> </tr> <tr> <td>LYMPHOCYTES % (AUTO)</td> <td>10.4 %</td> <td>23-45</td> </tr> <tr> <td>MONOCYTES % ( AUTO)</td> <td>8.7 %</td> <td> 0-9.0</td> </tr> <tr> <td> EOSINOPHILS % (AUTO)</td> <td>0.9 %</td& gt; <td>0-4</td> </tr> <tr> < td>BASOPHILS % (AUTO)</td> <td>0.0 %< /td> <td>0-2</td> </tr> <tr> & lt;td>IMMATURE GRANULOCYTE % (AUTO)</td> <td> 0.2 %</td> <td>0.0-0.5</td> </tr&gt ; <tr> <td>NEUTROPHILS # (AUTO)</td> &lt ;td>5.1 T/MM3</td> <td>1.8-7.7</td> </tr > <tr> <td>LYMPHOCYTES # (AUTO)</td> < td>0.7 T/MM3</td> <td>1-4.8</td> </tr&gt ; <tr> <td>MONOCYTES # (AUTO)</td> & lt;td>0.6 T/MM3</td> <td>0-0.8</td> </tr&gt ; <tr> <td>EOSINOPHILS # (AUTO)</td> <td>0.1 T/MM3</td> <td>0-0.5</td> </ tr> <tr> <td>BASOPHILS # (AUTO)</td> & lt;td>0.0 T/MM3</td> <td>0-0.2</td> </tr > <tr> <td>IMMATURE GRANULOCYTE # (AUTO)</td& gt; <td>0.01 T/MM3</td> <td>0.00-0.03</td > </tr> <tr> <th colspan="10"> L200.0050 - 04/18/17 09:27</th> </tr> <tr> <td>FUNGAL CULTURE.</td> <td>0.9 MG/DL</td> <td>0.7-1.2</td> </tr> <tr> <td>FUNGAL CULTURE, BLOOD.</td> <td>30 RATIO</td > <td>6-26</td> </tr> <tr> <td>NA - Sodium</td> <td>140 MEQ/L</td> <td>134-144</td> </tr> <tr> <td>Potassium</td> <td>5.1 MEQ/L</td> <td>3.6-5</td> </tr> <tr> & lt;td>Chloride</td> <td>113 MEQ/L</td> & lt;td>98-107</td></tr> <tr> <td>CO2 - Carbon Dioxide</td> <td>24 MEQ/L</td> < td>22-30</td> </tr> <tr><td>Anion Gap& lt;/td> <td>3 MEQ/L</td> <td>5-15</td& gt; </tr> <tr> <td>BUN - Blood Urea Nitrogen</td> <td>27.0 MG/DL</td> <td>7-17& lt;/td> </tr> <tr> <td>Glomerular Filtration Rate</td> <td>62 </td> <td>NRG& lt;/td> </tr> <tr> <td>Glucose</ td> <td>166 MG/DL</td> <td>65-110</td& gt; </tr> <tr> <td>Osmolality,Calculated </td> <td>278 MOSM/KG</td> <td>261-280 </td> </tr> <tr> <td>Calcium</ td> <td>7.6 MG/DL</td> <td>8.4-10.2</ td> </tr> <tr> <td>LICTERUS</td& gt; <td>< 2 </td> <td>0-7</td> </tr> <tr> <td>LHEMOLYSIS</td> <td>< 15 </td> <td>0-25</td> </tr> <tr> <td>LTURBIDITY</td> <td>< 20 </td> <td>0-20</td> </tr> <tr> <th colspan="10"> L200.2000 - 04/18/17 09:27</th> </tr> <tr> & lt;td>MAG - Magnesium</td> <td>1.8 MG/DL</td> <td>1.6-2.3</td> </tr> <tr> & lt;th colspan="10">B600.798 - 04/18/17 10:28</th> < /tr> <tr> <td>BGIVEPC1</td> <td >1 Unit PC Issued </td> <td>NRG</td> </ tr> <tr> <th colspan="10">L100.0299 - 04/18/17 13:50</th> </tr> <tr> <td& gt;HGB - HEMOGLOBIN</td> <td>9.6 GM/DL</td> <td>12-16</td> </tr> <tr> <th colspan="10">L900.0530 - 04/18/17 14:06</th> </tr> <tr> <td>Glucometer</td> <td> 242 mg/dL</td> <td>65-110</td> </tr> <tr> <th colspan="10">L100.0298 - 04/18/17 18:06</th> </tr> <tr> <td>HGB - HEMOGLOBIN</td> <td>9.9 GM/DL</td> <td&gt ;12-16</td> </tr> <tr> <th colspan=& quot;10">L100.0398 - 04/18/17 18:06</th> </tr> <tr> <td>HCT- HEMATOCRIT</td> <td> 32.3 %</td> <td>36-46</td> </tr&gt ; <tr> <th colspan="10">L900.0530 - 20:23</th> </tr> <tr> <td> Glucometer</td> <td>218 mg/dL</td> <td>65- 110</td> </tr> <tr> <th colspan=& quot;10">L600.5964 - 04/19/17 04:15</th> </tr> <tr> <td>Occult Blood Result, Stool</td> & lt;td>POSITIVE </td> <td>NRG</td> </tr& gt; <tr> <th colspan="10">L100.0050 - 04/19/17 04: 29</th> </tr> <tr> <td>WBC - WHITE BLOOD COUNT</td> <td>6.3 T/MM3</td> & lt;td>4.5-11.0</td> </tr> <tr> < td>RED BLOOD COUNT</td> <td>3.18 M/MM3</td> <td>4.00-5.20</td> </tr> <tr> <td>HGB - HEMOGLOBIN</td> <td>9.1 GM/DL</td> <td>12-16</td> </tr> <tr> & lt;td>HCT - HEMATOCRIT</td> <td>30.4 %</td&gt ; <td>36-46</td> </tr> <tr> <td>MEAN CORPUSCULAR VOLUME</td> <td>95.6 UM3&lt ;/td> <td>80-100</td> </tr> <tr& gt; <td>MEAN CORPUSCULAR HGB</td> <td> 28.6UUG</td> <td>26-34</td> </tr> <tr> <td>MEAN CORPUSCULAR HGB CONC(MCHC</td> <td>29.9 GM/DL</td> <td>31-37</td> & lt;/tr> <tr> <td>RDW STANDARD DEVIATION</td&gt ; <td>54.7 FL</td> <td>36.9-50.2</td> </tr> <tr> <td>PLT - PLATELET COUNT&lt ;/td> <td>195T/MM3</td> <td>130-400</ td> </tr> <tr><td>MEAN PLATELET VOLUME</td > <td>9.7 UM3</td> <td>9.4-12.4</td&gt ; </tr> <tr> <td>NEUTROPHILS % (AUTO)</td> <td>79.9 %</td> <td& gt;33-66</td></tr> <tr> <td>LYMPHOCYTES % (AUTO)</td> <td>10.1 %</td> <td>23-45</td> </tr> <tr> < td>MONOCYTES % (AUTO)</td> <td>9.0 %< /td> <td>0-9.0</td> </tr> <tr&gt ; <td>EOSINOPHILS % (AUTO)</td> <td> 0.5 %</td> <td>0-4</td> </tr> <tr> <td>BASOPHILS % (AUTO)</td> <td>0.2 %</td> <td>0-2</td> </tr> <tr> <td>IMMATURE GRANULOCYTE % (AUTO)</td> <td>0.3 %</td> <td&gt ;0.0-0.5</td> </tr> <tr> <td> NEUTROPHILS # (AUTO)</td> <td>5.0 T/MM3</td> < td>1.8-7.7</td> </tr> <tr> <td&gt ;LYMPHOCYTES# (AUTO)</td> <td>0.6 T/MM3</td> <td>1-4.8</td> </tr> <tr> <td> MONOCYTES # (AUTO)</td> <td>0.6 T/MM3</td> & lt;td>0-0.8</td> </tr> <tr> <td> EOSINOPHILS # (AUTO)</td> <td>0.0 T/MM3</td> <td>0-0.5</td> </tr> <tr> < td>BASOPHILS # (AUTO)</td> <td>0.0 T/MM3</td> <td>0-0.2</td> </tr> <tr> < td>IMMATURE GRANULOCYTE # (AUTO)</td> <td>0.02 T/MM3< /td> <td>0.00-0.03</td> </tr> <tr ><th colspan="10">L200.0020 - 04/19/17 04:29</th> </tr> <tr> <td>FUNGAL CULTURE.</td> <td>0.8 MG/DL</td> <td>0.7-1.2</td> < /tr> <tr> <td>FUNGAL CULTURE, BLOOD.</td> <td>29 RATIO</td> <td>6-26</td> </tr> <tr> <td>NA - Sodium</td> <td>140 MEQ/L</td> <td>134-144</td> </tr> <tr> <td>Potassium</td> & lt;td>4.8 MEQ/L</td> <td>3.6-5</td> </tr& gt; <tr> <td>Chloride</td> <td> 111 MEQ/L</td> <td>98-107</td> </tr> <tr> <td>CO2 - Carbon Dioxide</td> < td>24 MEQ/L</td> <td>22-30</td> </tr&gt ; <tr> <td>Anion Gap</td> <td> 5 MEQ/L</td> <td>5-15</td> </tr> <tr> <td>BUN - Blood Urea Nitrogen</td> <td& gt;23.0 MG/DL</td> <td>7-17</td> </tr> & lt;tr> <td>Glomerular Filtration Rate</td> < td>71 </td> <td>NRG</td> </tr> <tr> <td>Glucose</td> <td>156 MG/DL& lt;/td> <td>65-110</td> </tr> <tr > <td>Osmolality,Calculated</td> <td>276 MOSM/KG</td> <td>261-280</td> </tr> <tr> <td>Calcium</td> <td>7.8 MG/ DL</td> <td>8.4-10.2</td> </tr> & lt;tr> <td>Bilirubin,Total</td> <td>0.30 MG/DL& lt;/td> <td>0.20-1.30</td> </tr> &lt ;tr> <td>Alkaline Phosphatase</td> <td> 40 U/L</td> <td>38-126</td> </tr> <tr> <td>AST - Aspartate Amino Transfer</td> <td>16U/L</td> <td>14-36</td> </tr& gt; <tr> <td>ALT</td> <td>37 U/ L</td> <td>9-52</td> </tr> <tr > <td>TP - Total Protein</td> <td>5.5G/DL </td> <td>6.3-8.2</td> </tr> < tr> <td>Albumin Level</td> <td>2.7 G/DL& lt;/td> <td>3.5-5.0</td> </tr> < tr> <td>Globulin</td> <td>2.8 G/DL</td > <td>2.4-3.6</td> </tr> <tr> <td>Albumin/Globulin Ratio</td> <td>1.0 RATIO& lt;/td> <td>1.1-2.2</td> </tr> < tr> <td>LICTERUS</td> <td>< 2 < /td> <td>0-7</td> </tr> <tr> <td>LHEMOLYSIS</td> <td>< 15 </td> <td>0-25</td> </tr> <tr> & lt;td>LTURBIDITY</td> <td>< 20 </td> <td>0-20</td> </tr> <tr> < th colspan="10">L900.0530 - 04/19/17 06:20</th> </ tr> <tr> <td>Glucometer</td> < td>166 mg/dL</td> <td>65-110</td> </tr& gt; <tr> <th colspan="10">L900.0530 - 04/19/17 14: 57</th> </tr> <tr> <td>Glucometer </td> <td>226 mg/dL</td> <td>65-110&lt ;/td> </tr> <tr> <th colspan="10& quot;>L100.0298 - 04/19/17 15:51</th> </tr> <tr& gt; <td>HGB - HEMOGLOBIN</td> <td>10.0 GM/DL </td> <td>12-16</td> </tr> <tr > <th colspan="10">L100.0398 - 04/19/1715:51</th& gt; </tr> <tr> <td>HCT - HEMATOCRIT< /td> <td>32.3 %</td> <td>36-46< /td> </tr> <tr> <th colspan="10&quot ;>L600.5964 - 04/19/17 18:44</th> </tr> <tr> <td>Occult Blood Result, Stool</td> <td> NEGATIVE </td> <td>NRG</td> </tr> <tr> <th colspan="10">L900.0530 - 04/19/17 21:31& lt;/th> </tr> <tr> <td>Glucometer</td > <td>229 mg/dL</td> <td>65-110</td> </tr> <tr> <th colspan="10"> L100.0050 - 04/20/17 03:58</th> </tr> <tr> <td>WBC - WHITE BLOOD COUNT</td> <td>5.9 T/MM3& lt;/td> <td>4.5-11.0</td> </tr> < tr> <td>RED BLOOD COUNT</td> <td>3.29 M/MM3& lt;/td> <td>4.00-5.20</td> </tr> <tr& gt; <td>HGB - HEMOGLOBIN</td> <td>9.4 GM/DL& lt;/td> <td>12-16</td> </tr> <tr& gt; <td>HCT - HEMATOCRIT</td> <td>31.2 & #37;</td> <td>36-46</td> </tr> &lt ;tr> <td>MEAN CORPUSCULAR VOLUME</td> <td&gt ;94.8 UM3</td> <td>80-100</td> </tr> <tr> <td>MEAN CORPUSCULAR HGB</td> < td>28.6 UUG</td><td>26-34</td> </tr> & lt;tr> <td>MEAN CORPUSCULAR HGB CONC(MCHC</td> <td>30.1 GM/DL</td> <td>31-37</td> </ tr> <tr> <td>RDW STANDARD DEVIATION</td> <td>54.3 FL</td> <td>36.9-50.2</td> </tr> <tr> <td>PLT - PLATELET COUNT</ td> <td>217 T/MM3</td> <td>130-400</td> </tr> <tr> <td>MEAN PLATELETVOLUME</td > <td>9.5 UM3</td> <td>9.4-12.4</td&gt ; </tr> <tr> <td>NEUTROPHILS % (AUTO)& lt;/td> <td>77.2 %</td> <td>33-66 </td> </tr> <tr> <td>LYMPHOCYTES % (AUTO)</td> <td>11.8 %</td> <td>23-45</td> </tr> <tr> < td>MONOCYTES % (AUTO)</td> <td>9.9 %< /td> <td>0-9.0</td> </tr> <tr&gt ; <td>EOSINOPHILS % (AUTO)</td> <td> 0.7 %</td> <td>0-4</td> </tr> <tr> <td>BASOPHILS % (AUTO)</td> <td>0.2 %</td> <td>0-2</td> </tr> <tr> <td>IMMATURE GRANULOCYTE % (AUTO )</td> <td>0.2 %</td> <td>0.0- 0.5</td> </tr> <tr> <td> NEUTROPHILS # (AUTO)</td> <td>4.5 T/MM3</td> <td>1.8-7.7</td> </tr> <tr> &lt ;td>LYMPHOCYTES # (AUTO)</td> <td>0.7 T/MM3</td> <td>1-4.8</td> </tr> <tr> &lt ;td>MONOCYTES # (AUTO)</td> <td>0.6 T/MM3</td> <td>0-0.8</td> </tr> <tr> < td>EOSINOPHILS # (AUTO)</td> <td>0.0 T/MM3</td> <td>0-0.5</td> </tr> <tr> <td >BASOPHILS # (AUTO)</td> <td>0.0 T/MM3</td> <td>0-0.2</td> </tr> <tr><td> IMMATURE GRANULOCYTE # (AUTO)</td> <td>0.01 T/MM3</td&gt ;<td>0.00-0.03</td> </tr> <tr> & lt;th colspan="10">L900.0504/20/17 05:40</th> &lt ;/tr> <tr> <td>Glucometer</td> &lt ;td>145 mg/dL</td> <td>65-110</td> </tr& gt; <tr> <th colspan="10">L900.0511/29 10:55</th> </tr> <tr> <td> Glucometer</td> <td>164 mg/dL</td> <td>65-110& lt;/td> </tr> <tr> <th colspan="10 ">L900.0504/20/17 17:31</th> </tr> <tr > <td>Glucometer</td> <td>285 mg/dL</ td> <td>65-110</td> </tr> <tr&gt ; <th colspan="10">L900.0504/20/17 20:37</th&gt ; </tr> <tr><td>Glucometer</td> & lt;td>256 mg/dL</td> <td>65-110</td> </ tr> <tr> <th colspan="10">L100.0050 - 04/21/17 04:50</th> </tr> <tr> <td& gt;WBC - WHITE BLOOD COUNT</td> <td>5.4 T/MM3</td> <td>4.5-11.0</td> </tr> <tr> <td>RED BLOOD COUNT</td> <td>3.35 M/MM3</td& gt; <td>4.00-5.20</td> </tr> <tr> <td>HGB - HEMOGLOBIN</td> <td>9.7 GM/DL</td> <td>12-16</td> </tr> <tr> <td>HCT - HEMATOCRIT</td> <td>31.8 %</td> <td>36-46</td> </tr> <tr> &lt ;td>MEAN CORPUSCULAR VOLUME</td> <td>94.9 UM3</td&gt ; <td>80-100</td> </tr> <tr> <td>MEAN CORPUSCULAR HGB</td> <td>29.0 UUG</ td> <td>26-34</td> </tr> <tr> <td>MEAN CORPUSCULAR HGB CONC([facility]CHC</td> <td> 30.5 GM/DL</td> <td>31-37</td> </tr> & lt;tr> <td>RDW STANDARD DEVIATION</td> <td& gt;55.6 FL</td> <td>36.9-50.2</td> </tr&gt ; <tr> <td>PLT - PLATELET COUNT</td> <td>224 T/MM3</td> <td>130-400</td> < /tr> <tr> <td>MEAN PLATELET VOLUME</td> & lt;td>9.2 UM3</td> <td>9.4-12.4</td> </ tr> <tr> <td>NEUTROPHILS % (AUTO)</td& gt; <td>76.6 %</td> <td>33-66</td > </tr> <tr> <td>LYMPHOCYTES &# 37; (AUTO)</td> <td>13.5 %</td> < td>23-45</td> </tr> <tr> <td> MONOCYTES % (AUTO)</td> <td>9.1 %</td&gt ; <td>0-9.0</td></tr> <tr> < td>EOSINOPHILS % (AUTO)</td> <td>0.6 %& lt;/td> <td>0-4</td> </tr> <tr&gt ; <td>BASOPHILS % (AUTO)</td> <td> 0.2 %</td> <td>0-2</td> </tr> <tr> <td>IMMATUREGRANULOCYTE % (AUTO)</td& gt; <td>0.0 %</td> <td>0.0-0.5</ td> </tr> <tr> <td>NEUTROPHILS # ( AUTO)</td> <td>4.1 T/MM3</td> <td>1.8- 7.7</td> </tr> <tr> <td> LYMPHOCYTES # (AUTO)</td> <td>0.7 T/MM3</td> <td>1-4.8</td> </tr> <tr> < td>MONOCYTES # (AUTO)</td> <td>0.5 T/MM3</td> <td>0-0.8</td> </tr> <tr> & lt;td>EOSINOPHILS # (AUTO)</td> <td>0.0 T/MM3</td> <td>0-0.5</td> </tr> <tr> & lt;td>BASOPHILS # (AUTO)</td> <td>0.0 T/MM3</td> <td>0-0.2</td> </tr> <tr> < td>IMMATURE GRANULOCYTE # (AUTO)</td> <td>0.00 T/MM3< /td> <td>0.00-0.03</td> </tr> <tr > <th colspan="10">L200.0050 - 04/21/17 04:50</th > </tr> <tr> <td>FUNGAL CULTURE.< /td> <td>0.8 MG/DL</td> <td>0.7-1.2</ td> </tr> <tr> <td>FUNGAL CULTURE, BLOOD.</td> <td>26 RATIO</td> <td>6-26 </td> </tr> <tr> <td>NA - Sodium& lt;/td> <td>140 MEQ/L</td> <td>134-144&lt ;/td> </tr> <tr> <td>Potassium</td > <td>4.4 MEQ/L</td> <td>3.6-5</td&gt ; </tr> <tr> <td>Chloride</td> <td>108 MEQ/L</td> <td>98-107</td> </tr> <tr> <td>CO2 - Carbon Dioxide</td > <td>26 MEQ/L</td> <td>22-30</td> </tr> <tr> <td>Anion Gap</td> <td>6 MEQ/L</td> <td>5-15</td> & lt;/tr> <tr> <td>BUN - Blood Urea Nitrogen</td > <td>21.0 MG/DL</td> <td>7-17</td&gt ; </tr> <tr> <td>Glomerular Filtration Rate</td> <td>71 </td> <td>NRG</td& gt; </tr> <tr> <td>Glucose</td> <td>168 MG/DL</td> <td>65-110</td> </tr> <tr> <td>Osmolality,Calculated</ td> <td>276 MOSM/KG</td> <td>261-280</ td> </tr> <tr> <td>Calcium</td> <td>8.7 MG/DL</td> <td>8.4-10.2</td> </tr> <tr> <td>LICTERUS</td> <td>< 2 </td> <td>0-7</td> &lt ;/tr> <tr> <td>LHEMOLYSIS</td> <td >< 15 </td> <td>0-25</td> </tr&gt ; <tr> <td>LTURBIDITY</td> <td>&lt ; 20 </td> <td>0-20</td> </tr> & lt;tr> <th colspan="10">L900.0530 - 04/21/17 05:51& lt;/th> </tr> <tr> <td>Glucometer&lt ;/td> <td>202 mg/dL</td> <td>65-110</ td> </tr> <tr> <th colspan="10& quot;>L900.0530 - 04/21/17 11:00</th> </tr> <tr& gt; <td>Glucometer</td> <td>214 mg/dL</td> <td>65-110</td> </tr> <tr> <th colspan="10">L900.0530 - 04/21/17 13:31</th> & lt;/tr> <tr> <td>Glucometer</td> & lt;td>229 mg/dL</td> <td>65-110</td> </ tr> <tr> <th colspan="10">L900.0530 - 04/21 21:01</th> </tr> <tr> <td>Glucometer </td> <td>290 mg/dL</td> <td>65-110&lt ;/td> </tr> <tr> <thcolspan="10& quot;>L900.0530 - 11/08/17 01:45</th> </tr> <tr& gt; <td>Glucometer</td> <td>176 mg/dL</td& gt; <td>65-110</td> </tr> <tr> <th colspan="10">L900.0530 - 04/22/17 03:39</th> </tr> <tr> <td>Glucometer</td> <td>157 mg/dL</td> <td>65-110</td> </tr> <tr> <th colspan="10"> L100.0298 - 04/22/17 04:56</th> </tr> <tr> <td>HGB - HEMOGLOBIN</td> <td>9.4 GM/DL</td& gt; <td>12-16</td> </tr> <tr> <th colspan="10">L200.0050 - 04/22/17 04:56</th> </tr> <tr> <td>FUNGAL CULTURE.</td> <td>0.9 MG/DL</td> <td>0.7-1.2</td> </ tr> <tr> <td>FUNGAL CULTURE, BLOOD.</td> <td>26 RATIO</td> <td>6-26</td> &lt ;/tr> <tr> <td>NA - Sodium</td> & lt;td>141 MEQ/L</td> <td>134-144</td> </ tr> <tr> <td>Potassium</td> <td >4.2 MEQ/L</td> <td>3.6-5</td> </tr> <tr> <td>Chloride</td> <td> 105 MEQ/L</td> <td>98-107</td> </tr> <tr> <td>CO2 - Carbon Dioxide</td> <td> 30 MEQ/L</td> <td>22-30</td> </tr> <tr> <td>Anion Gap</td> <td>6 MEQ/L</td > <td>5-15</td> </tr> <tr> <td>BUN - Blood Urea Nitrogen</td> <td>23.0 MG /DL</td> <td>7-17</td> </tr> <tr > <td>GlomerularFiltration Rate</td> <td> 62 </td> <td>NRG</td> </tr> <tr> <td>Glucose</td> <td>137 MG/DL</td> <td>65-110</td> </tr> <tr> <td>Osmolality,Calculated</td> <td>277 MOSM/KG< /td> <td>261-280</td> </tr> <tr& gt; <td>Calcium</td> <td>8.6 MG/DL</td&gt ; <td>8.4-10.2</td> </tr> <tr> <td>LICTERUS</td> <td>< 2 </td> <td>0-7</td> </tr> <tr> <td>LHEMOLYSIS</td> <td>< 15 </td> &lt ;td>0-25</td> </tr> <tr> <td> LTURBIDITY</td> <td>< 20 </td> <td >0-20</td> </tr> <tr> <th colspan ="10">L900.0530 - 04/22/17 06:11</th> </tr> <tr> <td>Glucometer</td> <td>125 mg/dL</td> <td>65-110</td></tr> <tr& gt; <th colspan="10">L900.0530 - 04/22/17 10:55</th& gt; </tr> <tr> <td>Glucometer</td&gt ; <td>179 mg/dL</td> <td>65-110</td> </tr> <tr> <th colspan="10"> L900.0530 - 04/22/17 15:42</th> </tr> <tr> <td>Glucometer</td> <td>239 mg/dL</td> < td>65-110</td> </tr> <tr> <th colspan="10">L900.0530 - 04/22/17 17:25</th> </tr& gt; <tr> <td>Glucometer</td> <td& gt;240 mg/dL</td> <td>65-110</td> </tr> <tr> <th colspan="10">L900.0530 - 0:58</th> </tr> <tr> <td> Glucometer</td> <td>213 mg/dL</td> <td>65-110 </td> </tr> <tr> <th colspan=" 10">L900.0530 - 04/23/17 06:05</th> </tr> < tr> <td>Glucometer</td> <td>129 mg/dL< /td> <td>65-110</td> </tr> <tr&gt ; <th colspan="10">L900.0530 - 04/23/17 10:53</th&gt ; </tr> <tr> <td>Glucometer</td> <td>179 mg/dL</td> <td>65-110</td> </ tr> <tr> <th colspan="10">L100.0060 - 05/05/17 10:47</th> </tr> <tr> <td& gt;White Blood Count -MK</td> <td>9.0 T/MM3</td> <td>4.5-11.0</td> </tr> <tr> <td>Red Blood Count - MK</td> <td>4.27 M/MM3</ td> <td>4.00-5.20</td> </tr> <tr& gt; <td>Hemoglobin - MK</td> <td>12.6 GM/DL</ td> <td>12-16</td> </tr> <tr> <td>Hematocrit - MK</td> <td>39.0 %& lt;/td> <td>36-46</td> </tr> <tr&gt ; <td>Mean Corpuscular Volume - MK</td> <td> 91.3 UM3</td> <td>80-100</td> </tr> <tr> <td>Mean Corpuscular Hemoglobin-MK</td> <td>29.5 UUG</td> <td>26-34</td> & lt;/tr> <tr> <td>Mean Corpuscular HGB Conc-MK< /td> <td>32.3 GM/DL</td> <td>31-37</td ></tr> <tr> <td>RDW Standard Deviation - MK </td> <td>56.8 FL</td> <td>36.9-50.2& lt;/td> </tr> <tr> <td>Platelet Count - MK</td> <td>245 T/MM3</td> <td&gt ;130-400</td> </tr> <tr> <td> Mean Platelet Volume - MK</td> <td>9.0 UM3</td> <td>9.4-12.4</td> </tr> <tr> < td>Neutrophils % (Auto) - MK</td> <td>88.3 %& lt;/td> <td>33-66</td> </tr> <tr> <td>Lymphocytes % (Auto) - MK</td> <td& gt;4.1 %</td> <td>23-45</td> </tr& gt; <tr> <td>Monocytes/Mixed % (Auto)-MK</td> <td>7.6 %</td> <td>0-9.0</td> </tr> <tr> <td>Neutrophils # (Auto) - MK</td> <td>7.9 T/MM3</td> <td>1.8-7.7 </td> </tr> <tr> <td>Lymphocytes # (Auto) - MK</td> <td>0.4 T/MM3</td> <td&gt ;1-4.8</td> </tr> <tr> <td> Monocytes/Mixed # (Auto)-MK</td> <td>0.7 T/MM3</td> <td>0-0.8</td> </tr> <tr> <th colspan="10">L749.2000 - 05/05/17 10:47</th> </tr> <tr> <td>NA - Sodium - AMS</td> <td>136 mEq/L</td> <td>135-144</td> </tr> <tr> <td>Potassium - AMS</td> <td>4.1 mEq/L</td> <td>3.5-5.2</td> </tr> <tr> <td>Chloride- AMS</td> <td>98 mEq/L</td> <td>99-111</td> </ tr> <tr> <td>CO2 - Carbon Dioxide-AMS</td> <td>25 mEq/L</td> <td>22-31</td> </tr> <tr> <td>Anion Gap - AMS</td> <td>13 mEq/L</td> <td>3-20</td> </tr> <tr> <td>BUN - Blood Urea Nitrogen -AMS</td& gt; <td>38 mg/dL</td><td>10-20</td> < /tr> <tr> <td>Creatinine - AMS</td> <td>1.27 mg/dL</td> <td>0.57-1.11</td> </tr> <tr> <td>Glomerular Filtration Rate- AMS</td> <td>41 mL/min</td> <td>& gt;60</td> </tr> <tr> <td> Glucose - AMS</td> <td>356 mg/dL</td> <td >70-99</td> </tr> <tr> <td> Calcium - AMS</td> <td>9.7 mg/dL</td> <td >8.4-10.2</td> </tr> <tr> <td> Bilirubin,Total - AMS</td> <td>0.9 mg/dL</td> <td>0.2-1.2</td> </tr> <tr> & lt;td>Alkaline Phosphatase - AMS</td> <td>51 U/L</td& gt; <td>40-150</td> </tr> <tr> <td>AST - Aspartate Amino Transfer</td> <td> 16 U/L</td> <td>5-34</td> </tr> & lt;tr> <td>ALT - AMS</td> <td>21 U/L</ td> <td>0-55</td> </tr> <tr> <td>TP - Total Protein - AMS</td> <td>7.3 g/dL</ td> <td>6.0-7.6</td> </tr> <tr> <td>Albumin Level - AMS</td> <td>3.8 g/dL</ td> <td>3.4-4.8</td> </tr> <tr&gt ; <td>Globulin - AMS</td> <td>3.5 g/dL</td> <td>1.8-4.0</td> </tr> <tr> <th colspan="10">L902.4006 - 05/05/17 10:47</th> </tr> <tr> <td>White Blood Count</td& gt; <td>9.3 K/uL</td> <td>4.8-10.8</td&gt ;</tr> <tr> <td>RBC</td> <td >4.30 10*6/uL</td> <td>4.00-5.20</td> </ tr> <tr> <td>Hemoglobin</td> < td>12.5 g/dL</td> <td>12.0-16.0</td> </ tr> <tr> <td>Hematocrit</td> < td>40.1 %</td> <td>37.0-47.0</td> & lt;/tr> <tr> <td>MCV</td> <td&gt ;93.3 fL</td> <td>82.0-99.0</td> </tr> <tr> <td>MCH</td> <td>29.1 pg& lt;/td> <td>27.0-32.0</td> </tr> &lt ;tr> <td>MCHC</td> <td>31.2 g/dL</td> <td>32.0-36.0</td> </tr> <tr> <td>RDW</td> <td>17.1 %</td> <td>11.5-14.5</td> </tr> <tr> <td>MPV</td> <td>10.2 fL</td> <td >8.8-14.8</td> </tr> <tr> <td> Platelet Count</td><td>260 K/uL</td> <td>150- 400</td> </tr> <tr> <td> Neutrophils %</td> <td>82 %</td> <td>51-75</td> </tr> <tr> < td>Lymphocytes %</td> <td>4 %</td&gt ; <td>20-46</td> </tr> <tr> <td>Monocytes %</td> <td>10 %</ td> <td>4-11</td> </tr> <tr> <td>Basophils %</td> <td>0 %& lt;/td> <td>0-2</td> </tr> <tr&gt ; <td>Eosinophils %</td> <td>3 & #37;</td> <td>0-4</td> </tr> < tr> <td>Absolute Neutrophils</td> <td> 7.72 10*3/uL</td> <td>1.90-7.00</td> </tr& gt; <tr> <td>Absolute Lymphocytes</td> <td >0.37 10*3/uL</td> <td>0.80-3.30</td> </ tr> <tr> <td>Absolute Monocytes</td> <td>0.93 10*3/uL</td> <td>0.30-1.00</td>&lt ;/tr> <tr> <td>Absolute Eosinophils</td> <td>0.28 10*3/uL</td> <td>0.00-0.50</td&gt ; </tr> <tr> <td>Absolute Basophils</ td> <td>0.00 10*3/uL</td> <td>0.00-0.20& lt;/td> </tr> <tr> <td>Bands &# 37;</td> <td>1 %</td> <td>0-8& lt;/td> </tr> <tr> <td>Differential& lt;/td> <td>Manual </td> <td>NRG</td& gt; </tr> <tr> <th colspan="10"& gt;M110.0180 - 06/19/17 08:01</th> </tr> <tr> <td>ANTI-D</td> <td> </td> & lt;td>NRG</td></tr> <tr> <td>Gram Stain w/BC</td> <td> </td> <td>NRG&lt ;/td> </tr> <tr> <th colspan="10& quot;>L100.0050 - 06/19/17 07:48</th> </tr> <tr& gt; <td>WBC - WHITE BLOOD COUNT</td> <td>5.1 T/MM3& lt;/td> <td>4.5-11.0</td> </tr> < tr> <td>RED BLOOD COUNT</td> <td>4.54 M/ MM3</td> <td>4.00-5.20</td> </tr> <tr> <td>HGB - HEMOGLOBIN</td> <td> 13.4 GM/DL</td> <td>12-16</td> </tr> <tr> <td>HCT - HEMATOCRIT</td> <td& gt;41.9 %</td> <td>36-46</td> </tr& gt; <tr> <td>MEAN CORPUSCULAR VOLUME</td> <td>92.3 UM3</td> <td>80-100</td> </tr> <tr> <td>MEAN CORPUSCULAR HGB</td> <td>29.5 UUG</td> <td>26-34</td> & lt;/tr> <tr> <td>MEAN CORPUSCULAR HGB CONC(MCHC& lt;/td> <td>32.0 GM/DL</td> <td>31-37< /td> </tr> <tr> <td>RDW STANDARD DEVIATION</td> <td>56.8 FL</td> <td> 36.9-50.2</td> </tr> <tr> <td>PLT - PLATELET COUNT</td> <td>240 T/MM3</td> < td>130-400</td> </tr> <tr> <td&gt ;MEAN PLATELET VOLUME</td> <td>9.6 UM3</td> <td>9.4-12.4</td> </tr> <tr> < th colspan="10">L100.0105 - 06/19/17 07:48</th> </ tr> <tr> <td>NEUTROPHILS % (MANUAL)</ td> <td>65.0 %</td> <td>33-66< /td> </tr> <tr> <td>BAND NEUTROPHILS & amp;#37;</td><td>25.0 %</td> <td>0-6&lt ;/td> </tr> <tr> <td>LYMPHOCYTES & amp;#37; (MANUAL)</td> <td>4.0 %</td> <td>23-45</td> </tr> <tr> < td>MONOCYTES % (MANUAL)</td> <td>2.0 %& lt;/td> <td>0-9.0</td> </tr> <tr& gt; <td>EOSINOPHILS % (MANUAL)</td> <td >2.0 %</td> <td>0-4</td> </tr> <tr> <td>METAMYELOCYTES %</td> & lt;td>2.0 %</td> <td>0-0</td> </ tr> <tr> <td>PROLYMPHOCYTES %</td> <td>3.3 T/MM3</td> <td>1.8-7.7</td> < /tr> <tr> <td>PLASMA CELLS %</td> <td>1.3 T/MM3</td> <td>NRG</td></tr > <tr> <td>NEUTROPHILS # (MANUAL)</td> <td>0.1 T/MM3</td> <td>0-0.8</td> </tr> <tr> <td>MONOCYTES # (MANUAL)</td> <td>0.1 T/MM3</td> <td>0-0.5</td> & lt;/tr> <tr> <td>METAMYELOCYTES #</td> <td>0.1 T/MM3</td> <td>NRG</td> & lt;/tr> <tr> <td>NUCLEATED RED BLOOD CELLS</td> <td>2 </td> <td>NRG</td> </ tr> <tr> <td>MACROCYTOSIS</td> &lt ;td>1+ </td> <td>NRG</td> </tr> <tr> <td>POLYCHROMASIA</td> <td>2+ & lt;/td> <td>NRG</td> </tr> <tr> <td>Lymphocytes # (Manual)</td> <td>0.2 T/MM3& lt;/td> <td>1-4.8</td></tr> <tr> <td>LRBCMOR</td> <td>Abnormal </td> <td>NRG</td> </tr> <tr> < th colspan="10">L200.0020 - 06/19/17 07:48</th> </ tr> <tr> <td>FUNGAL CULTURE.</td> <td& gt;1.4 MG/DL</td> <td>0.7-1.2</td> </tr&gt ; <tr> <td>FUNGAL CULTURE, BLOOD.</td> <td>28 RATIO</td> <td>6-26</td> </ tr> <tr> <td>NA - Sodium</td> <td& gt;138 MEQ/L</td> <td>134-144</td> </tr> <tr> <td>Potassium</td> <td>4.5 MEQ/L</td> <td>3.6-5</td> </tr> & lt;tr> <td>Chloride</td> <td>94 MEQ/L< /td> <td>98-107</td> </tr> <tr> <td>CO2 - Carbon Dioxide</td> <td>27 MEQ/L& lt;/td> <td>22-30</td> </tr> <tr> <td>Anion Gap</td> <td>17 MEQ/L</td> <td>5-15</td> </tr> <tr> <td>BUN - Blood Urea Nitrogen</td> <td>39.0 MG/DL& lt;/td> <td>7-17</td> </tr> <tr& gt; <td>Glomerular Filtration Rate</td> <td> 37 </td> <td>NRG</td> </tr><tr> <td>Glucose</td> <td>185 MG/DL</td> <td>65-110</td> </tr> <tr> <td>Osmolality,Calculated</td> <td>280 MOSM/KG</ td> <td>261-280</td> </tr> <tr&gt ; <td>Calcium</td> <td>9.5 MG/DL</td> <td>8.4-10.2</td> </tr> <tr> <td>Bilirubin,Total</td> <td>0.70 MG/DL</td > <td>0.20-1.30</td> </tr> <tr&gt ; <td>Alkaline Phosphatase</td> <td>73 U/L</td& gt; <td>38-126</td> </tr> <tr> <td>AST - Aspartate Amino Transfer</td> <td> 32 U/L</td> <td>14-36</td> </tr> <tr> <td>ALT</td> <td>46 U/L</td&gt ; <td>9-52</td> </tr> <tr> & lt;td>TP - Total Protein</td> <td>7.0 G/DL</td> <td>6.3-8.2</td> </tr> <tr> <td>Albumin Level</td> <td>3.9 G/DL</td> <td>3.5-5.0</td> </tr> <tr> & lt;td>Globulin</td> <td>3.1 G/DL</td> &lt ;td>2.4-3.6</td> </tr> <tr> <td& gt;Albumin/Globulin Ratio</td> <td>1.3 RATIO</td> <td>1.1-2.2</td> </tr> <tr> <td>LICTERUS</td> <td>< 2 </td> <td>0-7</td> </tr> <tr> < td>LHEMOLYSIS</td> <td>24 </td> <td&gt ;0-25</td> </tr> <tr> <td> LTURBIDITY</td> <td>< 20 </td> <td >0-20</td> </tr> <tr> <th colspan ="10">L200.20606/19/17 07:48</th> </tr> <tr> <td>Lactate</td> <td>4.0 MMOL/L </td> <td>0.6-2.2</td> </tr> <tr&gt ; <th colspan="10">L300.34906/19/17 07:48</th&gt ; </tr> <tr> <td>Troponin I</td> <td>0.018 ng/ml</td> <td>0-0.12</td> </tr> <tr> <th colspan="10"> L300.37006/19/17 07:48</th> </tr> <tr> <td>B-Type Natriuretic Peptide</td> <td>1390 pg/ mL</td> <td>0-175</td> </tr> < tr> <th colspan="10">L300.49506/19/17 07:48</ th> </tr> <tr> <td>Lipase</td&gt ; <td>213 U/L</td> <td>23-300</td> </tr> <tr> <th colspan="10"> L200.20806/19/17 07:48</th> </tr> <tr> <td>Beta-Hydroxybutyrate Blood</td> <td>0.50 MMOL/L</td> <td>0-0.6</td> </tr> <tr> <th colspan="10">L200.00506/19/17 08:46& lt;/th> </tr> <tr><td>POTASSIUM</td> <td>Urine, [place] </td> <td>NRG</td> </tr> <tr> <td>CHLORIDE</td> <td>YELLOW </td> <td>YELLOW</td> &lt ;/tr> <tr> <td>ANION GAP</td> <td> CLOUDY </td> <td>NRG</td> </tr> & lt;tr> <td>BLOOD UREA NITROGEN</td><td>5.5 </td > <td>5.0-8.0</td> </tr> <tr> <td>BUN/CREATININE RATIO</td> <td>1+ </td > <td>NEGATIVE</td> </tr> <tr&gt ; <td>GLUCOSE</td> <td>NEGATIVE </td> <td>NEGATIVE</td> </tr> <tr> < td>CALCIUM</td> <td>TRACE </td> <td&gt ;NEGATIVE</td> </tr> <tr> <td> BILIRUBIN, CONJUG &amp; UNCONJUG</td> <td>NEGATIVE </td> <td>NEGATIVE</td> </tr> &lt ;tr> <td>TOTAL PROTEIN</td> <td>None Seen /HPF</td> <td>0-3</td> </tr> <tr> <td>ALBUMIN</td> <td>50-200 / HPF</td> <td>0-5</td> </tr> < tr> <td>CKMB</td> <td>2+ </td> <td>NEGATIVE</td> </tr> <tr> & lt;td>HOMOCYSTEINE - AT [facility]</td> <td>Pseudohyphae present </td> <td>NEGATIVE</td> </tr> <tr> <td>GENTAMICIN,RANDOM</td> <td >Cult reflexed &setup </td> <td>NRG</td> </tr> <tr> <td>Specific [place],Urine& lt;/td> <td>1.020 </td> <td>1.015-1.025& lt;/td> </tr> <tr> <td>Leukocyte Esterase,Urine</td> <td>3+ </td> <td> NEGATIVE</td> </tr> <tr> <td> Nitrate,Urine</td> <td>NEGATIVE </td> <td >NEGATIVE</td> </tr> <tr> <td> Urobilinogen,Urine</td><td>0.2 EU/DL</td> <td> NORMAL</td> </tr> <tr> <td> Occult Blood,Urine - Dipstick</td> <td>1+ </td> <td>NEGATIVE</td> </tr> <tr> < th colspan="10">M120.0100 - 06/19/17 08:46</th> </ tr> <tr> <td>Urine Culture</td> & lt;td> CFU/ml</td> <td>NRG</td> </tr&gt ; <tr> <th colspan="10">L200.2067 - 11:54</th> </tr> <tr> <td> Lactate</td> <td>2.2 MMOL/L</td> <td>0.6-2.2& lt;/td> </tr> <tr> <th colspan="10 ">L900.0530 - 06/19/17 16:14</th> </tr> <tr > <td>Glucometer</td> <td>249 mg/dL</ td> <td>65-110</td> </tr> <tr&gt ; <th colspan="10">L200.0010 - 06/20/17 04:51</th&gt ; </tr> <tr> <td>FUNGAL CULTURE.</td> <td>1.5 MG/DL</td> <td>0.7-1.2</td> </tr> <tr> <td>FUNGAL CULTURE, BLOOD.< /td> <td>27 RATIO</td> <td>6-26</td&gt ; </tr> <tr> <td>NA - Sodium</td> <td>135 MEQ/L</td> <td>134-144</td> </tr> <tr> <td>Potassium</td> & lt;td>5.5 MEQ/L</td> <td>3.6-5</td> </tr > <tr> <td>Chloride</td> <td&gt ;98 MEQ/L</td> <td>98-107</td> </tr> <tr> <td>CO2 - Carbon Dioxide</td> < td>29 MEQ/L</td> <td>22-30</td> </tr> <tr> <td>Anion Gap</td> <td>8 MEQ/L</td> <td>5-15</td> </tr> & lt;tr> <td>BUN - Blood Urea Nitrogen</td> < td>40.0 MG/DL</td> <td>7-17</td> </tr&gt ; <tr> <td>Glomerular Filtration Rate</td> <td>34 </td> <td>NRG</td> </tr ><tr> <td>Glucose</td> <td>204 MG/ DL</td> <td>65-110</td> </tr> &lt ;tr> <td>Osmolality,Calculated</td> <td> 276 MOSM/KG</td> <td>261-280</td> </tr> <tr> <td>Calcium</td> <td>8.4 MG/DL</td> <td>8.4-10.2</td> </tr> <tr> <td>Bilirubin,Total</td> <td> 0.60 MG/DL</td> <td>0.20-1.30</td> </tr&gt ; <tr> <td>Bilirubin,Unconjugated</td> &lt ;td>0.20 MG/DL</td> <td>0.00-1.1</td> </ tr> <tr> <td>Bilirubin,Conjugated</td> & lt;td>0.00 MG/DL</td> <td>0.00-0.30</td> & lt;/tr> <tr> <td>Alkaline Phosphatase</td> <td>59 U/L</td> <td>38-126</td> </tr> <tr> <td>AST - Aspartate Amino Transfer</td> <td>24 U/L</td> <td>14-36 </td> </tr> <tr> <td>ALT</td& gt; <td>36 U/L</td> <td>9-52</td> </tr> <tr> <td>TP - Total Protein</td& gt; <td>6.6 G/DL</td> <td>6.3-8.2</td> </tr> <tr> <td>Albumin Level</td> <td>3.3 G/DL</td> <td>3.5-5.0</td> </tr& gt; <tr> <td>Globulin</td> <td> 3.3 G/DL</td> <td>2.4-3.6</td> </tr> <tr> <td>Albumin/Globulin Ratio</td> & lt;td>1.0 RATIO</td> <td>1.1-2.2</td> </ tr> <tr> <td>LICTERUS</td> <td& gt;< 2 </td> <td>0-7</td> </tr> <tr> <td>LHEMOLYSIS</td> <td>& amp;lt; 15 </td> <td>0-25</td> </tr> <tr><td>LTURBIDITY</td> <td>< 20 & lt;/td> <td>0-20</td> </tr> <tr& gt; <th colspan="10">L200.2000 - 06/20/17 04:51</th& gt; </tr> <tr> <td>MAG - Magnesium</ td> <td>1.8 MG/DL</td> <td>1.6-2.3</td > </tr> <tr> <th colspan="10" >L100.0050 - 06/20/17 04:51</th> </tr> <tr> <td>WBC - WHITE BLOOD COUNT</td> <td>15.3 T/ MM3</td> <td>4.5-11.0</td> </tr> <tr> <td>RED BLOOD COUNT</td> <td> 4.05 M/MM3</td> <td>4.00-5.20</td> </tr> & lt;tr> <td>HGB - HEMOGLOBIN</td> <td> 12.0 GM/DL</td> <td>12-16</td> </tr> <tr> <td>HCT - HEMATOCRIT</td> <td& gt;37.2 %</td> <td>36-46</td> </tr& gt; <tr><td>MEAN CORPUSCULAR VOLUME</td> < td>91.9 UM3</td> <td>80-100</td> </tr&gt ; <tr> <td>MEAN CORPUSCULAR HGB</td> <td>29.6 UUG</td> <td>26-34</td> </tr > <tr> <td>MEAN CORPUSCULAR HGB CONC(MCHC</td& gt; <td>32.3 GM/DL</td> <td>31-37</td&gt ; </tr> <tr><td>RDW STANDARD DEVIATION</td&gt ; <td>56.6 FL</td> <td>36.9-50.2</td> </tr> <tr> <td>PLT - PLATELET COUNT&lt ;/td> <td>155 T/MM3</td> <td>130-400</ td> </tr> <tr> <td>MEAN PLATELET VOLUME</td> <td>10.2 UM3</td> <td>9.4- 12.4</td> </tr> <tr> <th colspan=& quot;10">L100.0105 - 06/20/17 04:51</th> </tr> <tr> <td>NEUTROPHILS % (MANUAL)</td> <td>82.0 %</td> <td>33-66</td> </tr> <tr> <td>BAND NEUTROPHILS %& lt;/td> <td>8.0 %</td> <td>0-6&lt ;/td> </tr> <tr> <td>LYMPHOCYTES & amp;#37; (MANUAL)</td> <td>4.0 %</td> <td>23-45</td> </tr> <tr> < td>MONOCYTES % (MANUAL)</td> <td>4.0 %& lt;/td> <td>0-9.0</td> </tr> <tr& gt; <td>EOSINOPHILS % (MANUAL)</td> <td& gt;1.0 %</td> <td>0-4</td> </tr&gt ; <tr> <td>METAMYELOCYTES %</td> <td>1.0 %</td> <td>0-0</td> </tr> <tr> <td>PROLYMPHOCYTES %</ td> <td>12.5 T/MM3</td> <td>1.8-7.7</td&gt ; </tr> <tr> <td>PLASMA CELLS %</td > <td>1.2 T/MM3</td> <td>NRG</td> </tr> <tr> <td>NEUTROPHILS # (MANUAL)& lt;/td> <td>0.6 T/MM3</td> <td>0-0.8</ td> </tr> <tr> <td>MONOCYTES # ( MANUAL)</td> <td>0.2 T/MM3</td> <td>0- 0.5</td> </tr> <tr> <td> METAMYELOCYTES #</td> <td>0.2 T/MM3</td> &lt ;td>NRG</td> </tr> <tr> <td> MACROCYTOSIS</td> <td>1+ </td> <td>NRG& lt;/td> </tr> <tr> <td>POLYCHROMASIA </td> <td>1+ </td> <td>NRG</td> </tr> <tr> <td>Lymphocytes # (Manual)& lt;/td> <td>0.6 T/MM3</td> <td>1-4.8</ td> </tr> <tr> <td>LRBCMOR</td> <td>Abnormal </td> <td>NRG</td> </tr > <tr> <th colspan="10">L200.0050 - 11/30 12:07</th> </tr> <tr> <td> FUNGAL CULTURE.</td> <td>1.2 MG/DL</td> < td>0.7-1.2</td> </tr> <tr> <td&gt ;FUNGAL CULTURE, BLOOD.</td><td>37 RATIO</td> <td& gt;6-26</td> </tr> <tr> <td>NA - Sodium</td> <td>136 MEQ/L</td> <td>134 -144</td> </tr> <tr> <td> Potassium</td> <td>5.2 MEQ/L</td> <td>3.6-5 </td> </tr> <tr> <td>Chloride< /td> <td>101 MEQ/L</td> <td>98-107</td > </tr> <tr> <td>CO2 - Carbon Dioxide</td> <td>26 MEQ/L</td> <td>22- 30</td> </tr> <tr> <td>Anion Gap& lt;/td> <td>9 MEQ/L</td> <td>5-15</td&gt ; </tr> <tr> <td>BUN - BloodUrea Nitrogen</td> <td>44.0 MG/DL</td> <td> 7-17</td> </tr> <tr> <td> Glomerular Filtration Rate</td> <td>44 </td> <td& gt;NRG</td> </tr> <tr> <td>Glucose&lt ;/td> <td>260 MG/DL</td> <td>65-110</ td> </tr> <tr> <td>Osmolality, Calculated</td> <td>282 MOSM/KG</td> <td&gt ;261-280</td> </tr> <tr> <td>Calcium& lt;/td> <td>8.5 MG/DL</td> <td>8.4-10.2</td&gt ; </tr> <tr> <td>LICTERUS</td> <td>< 2 </td> <td>0-7</td> </tr> <tr> <td>LHEMOLYSIS</td> <td>42 </td> <td>0-25</td> </tr> <tr> <td>LTURBIDITY</td> <td>< 20 </td> <td>0-20</td> </tr> < tr> <th colspan="10">L900.05 - 06/20/17 12:22</ th> </tr> <tr> <td>Glucometer</td&gt ; <td>268 mg/dL</td> <td>65-110</td> </tr> <tr> <th colspan="10"> L900.0530 - 06/20/17 20:06</th> </tr> <tr> <td>Glucometer</td> <td>341 mg/dL</td> <td>65-110</td> </tr> <tr> <th colspan="10">L900.0530 - 06/21/17 00:20</th> </tr> <tr> <td>Glucometer</td> <td>305 mg/dL</td> <td>65-110</td> </ tr> <tr> <th colspan="10">L900.0530 - 06/21/17 09:03</th> </tr> <tr> <td& gt;Glucometer</td> <td>179 mg/dL</td> <td >65-110</td> </tr> <tr> <th colspan=& quot;10">L900.0530 - 06/21/17 11:23</th> </tr><tr& gt; <td>Glucometer</td> <td>215 mg/dL</td ><td>65-110</td> </tr> <tr> & lt;th colspan="10">L200.0020 - 06/21/17 17:54</th> &lt ;/tr> <tr> <td>FUNGAL CULTURE.</td> <td>1.1 MG/DL</td> <td>0.7-1.2</td> & lt;/tr> <tr> <td>FUNGAL CULTURE, BLOOD.</td&gt ; <td>36 RATIO</td> <td>6-26</td> </ tr> <tr> <td>NA - Sodium</td> < td>133 MEQ/L</td> <td>134-144</td> </tr& gt; <tr> <td>Potassium</td> <td> 5.4 MEQ/L</td> <td>3.6-5</td> </tr> <tr> <td>Chloride</td> <td>96 MEQ/ L</td> <td>98-107</td> </tr> < tr> <td>CO2 - Carbon Dioxide</td> <td>29 MEQ/L</td> <td>22-30</td> </tr> & lt;tr> <td>Anion Gap</td> <td>8 MEQ/L< /td> <td>5-15</td> </tr> <tr> <td>BUN - BloodUrea Nitrogen</td> <td>39.0 MG/ DL</td> <td>7-17</td> </tr> <tr > <td>Glomerular Filtration Rate</td> <td>49 < /td> <td>NRG</td> </tr> <tr> <td>Glucose</td> <td>244 MG/DL</td> <td>65-110</td> </tr> <tr> & lt;td>Osmolality,Calculated</td> <td>273 MOSM/KG</td&gt ; <td>261-280</td> </tr> <tr> <td>Calcium</td> <td>9.0 MG/DL</td> <td& gt;8.4-10.2</td> </tr> <tr> <td> Bilirubin,Total</td> <td>0.30 MG/DL</td> &lt ;td>0.20-1.30</td></tr> <tr> <td> Alkaline Phosphatase</td> <td>67 U/L</td> & lt;td>38-126</td> </tr> <tr> <td& gt;AST - Aspartate Amino Transfer</td> <td>18 U/L</td&gt ; <td>14-36</td> </tr> <tr> <td>ALT</td> <td>28 U/L</td> <td>9- 52</td> </tr> <tr> <td>TP - Total Protein</td> <td>7.1 G/DL</td> <td& gt;6.3-8.2</td> </tr> <tr> <td> Albumin Level</td> <td>3.5 G/DL</td> <td& gt;3.5-5.0</td> </tr> <tr> <td> Globulin</td> <td>3.6 G/DL</td> <td>2.4-3.6 </td> </tr> <tr> <td>Albumin/ Globulin Ratio</td> <td>1.0 RATIO</td> < td>1.1-2.2</td> </tr> <tr> <td> LICTERUS</td> <td>< 2 </td> <td&gt ;0-7</td> </tr> <tr> <td> LHEMOLYSIS</td> <td>< 15 </td> <td >0-25</td> </tr> <tr> <td> LTURBIDITY</td> <td>< 20 </td> <td >0-20</td> </tr> <tr> <th colspan=& quot;10">L200.2000 - 06/21/17 17:54</th> </tr> <tr > <td>MAG - Magnesium</td> <td>1.9 MG/DL& lt;/td> <td>1.6-2.3</td> </tr> <tr&gt ; <th colspan="10">L100.0075 - 06/21/17 17:54</th&gt ; </tr> <tr> <td>WBC - WHITE BLOOD COUNT</td> <td>10.2 T/MM3</td> <td>4.5 -11.0</td> </tr> <tr> <td>RED BLOOD COUNT</td> <td>3.98 M/MM3</td> <td& gt;4.00-5.20</td> </tr> <tr> <td> HGB - HEMOGLOBIN</td> <td>11.8 GM/DL</td> & lt;td>12-16</td> </tr> <tr> <td& gt;HCT - HEMATOCRIT</td> <td>36.5 %</td> <td>36-46</td> </tr> <tr> & lt;td>MEAN CORPUSCULAR VOLUME</td> <td>91.7 UM3</td> <td>80-100</td> </tr> <tr> <td>MEAN CORPUSCULAR HGB</td> <td>29.6 UUG</td& gt; <td>26-34</td> </tr> <tr> <td>MEAN CORPUSCULAR HGB CONC(MCHC</td> <td>32.3 GM /DL</td> <td>31-37</td> </tr> &lt ;tr> <td>RDW STANDARD DEVIATION</td> <td>54.7 FL </td> <td>36.9-50.2</td> </tr> & lt;tr> <td>PLT - PLATELET COUNT</td> <td> 211 T/MM3</td> <td>130-400</td> </tr> <tr> <td>MEAN PLATELET VOLUME</td> <td >10.1 UM3</td> <td>9.4-12.4</td> </tr&gt ; <tr> <td>NEUTROPHILS % (MANUAL)</td&gt ; <td>87.0 %</td> <td>33-66</td> </tr> <tr> <td>BAND NEUTROPHILS %&lt ;/td> <td>2.0 %</td> <td>0-6</ td> </tr> <tr> <td>LYMPHOCYTES & #37; (MANUAL)</td> <td>3.0 %</td> & lt;td>23-45</td> </tr> <tr> <td& gt;MONOCYTES % (MANUAL)</td> <td>6.0 %</ td> <td>0-9.0</td> </tr> <tr> <td>BASOPHILS % (MANUAL)</td> <td>1.0 &#37 ;</td> <td>0-2</td> </tr> <tr& gt; <td>PROLYMPHOCYTES %</td> <td> 8.9 T/MM3</td> <td>1.8-7.7</td> </tr> <tr> <td>PLASMA CELLS %</td> & lt;td>0.2 T/MM3</td> <td>NRG</td> </tr& gt; <tr> <td>NEUTROPHILS # (MANUAL)</td> <td>0.6 T/MM3</td> <td>0-0.8</td> & lt;/tr> <tr> <td>BASOPHILS # (MANUAL)</td> <td>0.1 T/MM3</td> <td>0-0.2</td> </ tr> <tr> <td>MACROCYTOSIS</td> &lt ;td>1+ </td> <td>NRG</td> </tr><tr > <td>POLYCHROMASIA</td> <td>1+ </td& gt; <td>NRG</td> </tr> <tr> <td>SPHEROCYTES</td> <td>1+ </td> <td>NRG</td> </tr> <tr> <td&gt ;PAPPENHEIMER BODIES</td> <td>1+ </td> < td>NRG</td> </tr> <tr> <td> Reactive Lymphocytes %</td> <td>1.0 %</ td> <td>0-0</td> </tr> <tr> <td>Lymphocytes # (Manual)</td> <td>0.3 T/MM3</ td> <td>1-4.8</td> </tr> <tr> <td>Reactive Lymphocytes #</td> <td>0.1 T/MM3&lt ;/td> <td>0-0</td> </tr> <tr> <td>LRBCMOR</td> <td>Abnormal </td> <td>NRG</td> </tr> <tr> < th colspan="10">L900.0530 - 06/21/17 21:22</th> </ tr> <tr> <td>Glucometer</td> < td>262 mg/dL</td> <td>65-110</td> </tr& gt; <tr> <th colspan="10">L100.0050 - 01/30 04:03</th> </tr> <tr><td>WBC - WHITE BLOOD COUNT</td> <td>10.7 T/MM3</td> & lt;td>4.5-11.0</td> </tr> <tr> < td>RED BLOOD COUNT</td> <td>4.11 M/MM3</td> <td>4.00-5.20</td> </tr> <tr> <td>HGB - HEMOGLOBIN</td> <td>12.1 GM/DL</td&gt ; <td>12-16</td> </tr> <tr> <td>HCT - HEMATOCRIT</td> <td>37.1 %< /td> <td>36-46</td> </tr> <tr&gt ; <td>MEAN CORPUSCULAR VOLUME</td> <td>90.3 UM3</td> <td>80-100</td> </tr><tr&gt ; <td>MEAN CORPUSCULAR HGB</td> <td>29.4 UUG </td> <td>26-34</td> </tr> <tr& gt; <td>MEAN CORPUSCULAR HGB CONC(MCHC</td> <td >32.6 GM/DL</td> <td>31-37</td> </tr&gt ; <tr> <td>RDW STANDARD DEVIATION</td> & lt;td>53.9 FL</td> <td>36.9-50.2</td> </ tr> <tr> <td>PLT - PLATELET COUNT</td> & lt;td>222 T/MM3</td> <td>130-400</td> </ tr> <tr> <td>MEANPLATELET VOLUME</td> <td>10.5 UM3</td> <td>9.4-12.4</td> </tr> <tr> <th colspan="10"> L100.0105 - 06/22/17 04:03</th> </tr> <tr> <td>NEUTROPHILS % (MANUAL)</td> <td> 74.0 %</td> <td>33-66</td> </tr> <tr> <td>BAND NEUTROPHILS %</td> <td>1.0 %</td> <td>0-6</td> & lt;/tr> <tr> <td>LYMPHOCYTES % (MANUAL)& lt;/td> <td>17.0 %</td> <td>23-45 </td> </tr> <tr> <td>MONOCYTES & amp;#37; (MANUAL)</td> <td>7.0 %</td> <td>0-9.0</td> </tr> <tr> < td>MYELOCYTES %</td> <td>1.0 %</td&gt ; <td>0-0</td> </tr> <tr> <td>PROLYMPHOCYTES %</td> <td>7.9 T/MM3&lt ;/td> <td>1.8-7.7</td> </tr> <tr& gt; <td>PLASMA CELLS %</td> <td>0.1 T/MM3</td> <td>NRG</td> </tr> &lt ;tr> <td>NEUTROPHILS # (MANUAL)</td> <td> 0.7 T/MM3</td> <td>0-0.8</td> </tr> & lt;tr> <td>MYELOCYTES #</td> <td>0.1 T/ MM3</td> <td>NRG</td> </tr> <tr&gt ; <td>POLYCHROMASIA</td> <td>1+ </td> <td>NRG</td> </tr> <tr> &lt ;td>Lymphocytes # (Manual)</td> <td>1.8 T/MM3</td&gt ; <td>1-4.8</td> </tr> <tr> <td>LRBCMOR</td> <td>Abnormal </td> <td>NRG</td> </tr> <tr> < th colspan="10">L200.0020 - 06/22/17 04:03</th> </ tr> <tr> <td>FUNGAL CULTURE.</td> <td>1.0 MG/DL</td> <td>0.7-1.2</td> < /tr> <tr> <td>FUNGAL CULTURE, BLOOD.</td> <td>42 RATIO</td> <td>6-26</td> </tr > <tr> <td>NA - Sodium</td> <td >135 MEQ/L</td> <td>134-144</td> </tr&gt ; <tr> <td>Potassium</td> <td> 4.9 MEQ/L</td> <td>3.6-5</td> </tr> <tr> <td>Chloride</td> <td>98 MEQ/L& lt;/td> <td>98-107</td> </tr> <tr > <td>CO2 - Carbon Dioxide</td> <td>30 MEQ/L</td> <td>22-30</td> </tr> & lt;tr> <td>Anion Gap</td> <td>7 MEQ/L< /td> <td>5-15</td> </tr> <tr> <td>BUN - Blood Urea Nitrogen</td> <td>42.0 MG/DL </td> <td>7-17</td> </tr> <tr& gt; <td>Glomerular Filtration Rate</td> <td> 55 </td> <td>NRG</td> </tr> < tr> <td>Glucose</td> <td>234 MG/DL</td&gt ; <td>65-110</td> </tr> <tr> <td>Osmolality,Calculated</td> <td>279 MOSM/KG& lt;/td> <td>261-280</td> </tr> < tr> <td>Calcium</td> <td>8.8 MG/DL</td > <td>8.4-10.2</td></tr> <tr> <td>Bilirubin,Total</td> <td>0.40 MG/DL</td&gt ; <td>0.20-1.30</td> </tr> <tr> & lt;td>Alkaline Phosphatase</td> <td>51 U/L</td> <td>38-126</td> </tr> <tr> <td>AST - Aspartate Amino Transfer</td> <td>22 U/L </td> <td>14-36</td> </tr> <tr > <td>ALT</td> <td>24 U/L</td> < td>9-52</td> </tr> <tr> <td> TP - Total Protein</td> <td>6.9 G/DL</td> & lt;td>6.3-8.2</td> </tr> <tr> <td >Albumin Level</td> <td>3.3 G/DL</td> &lt ;td>3.5-5.0</td> </tr> <tr> <td& gt;Globulin</td> <td>3.6 G/DL</td> <td&gt ;2.4-3.6</td> </tr> <tr> <td>Albumin/ Globulin Ratio</td> <td>0.9 RATIO</td> < td>1.1-2.2</td> </tr> <tr> <td> LICTERUS</td> <td>< 2 </td> <td&gt ;0-7</td> </tr> <tr> <td> LHEMOLYSIS</td> <td>57 </td> <td>0-25& lt;/td> </tr> <tr> <td>LTURBIDITY</td& gt; <td>< 20 </td> <td>0-20</td&gt ; </tr> <tr> <th colspan="10"&gt ;L200.2000 - 06/22/17 04:03</th> </tr> <tr> <td>MAG - Magnesium</td> <td>1.8 MG/DL</td& gt; <td>1.6-2.3</td> </tr> <tr> <th colspan="10">L900.0530 - 06/22/17 06:33</th> </tr> <tr> <td>Glucometer</td> <td>195 mg/dL</td> <td>65-110</td> </tr> <tr> <th colspan="10">L900.529 - 06/22/17 21:22</th> </tr> <tr> <td >Glucometer</td> <td>233 mg/dL</td> < td>65-110</td> </tr> <tr> <th colspan="10">L900.529 - 06/23/17 06:33</th> </tr& gt; <tr> <td>Glucometer</td> <td& gt;128 mg/dL</td> <td>65-110</td> </tr> <tr> <th colspan="10">L900.52906/23/17 14: 48</th> </tr> <tr> <td>Glucometer </td> <td>271 mg/dL</td> <td>65-110&lt ;/td> </tr> <tr> <th colspan="10& quot;>L200.4906/24/17 04:02</th> </tr> <tr& gt; <td>FUNGAL CULTURE.</td> <td>0.9 MG/DL& lt;/td> <td>0.7-1.2</td> </tr> < tr> <td>FUNGAL CULTURE, BLOOD.</td> <td> 48 RATIO</td> <td>6-26</td> </tr> <tr> <td>NA - Sodium</td> <td>140 MEQ/L</td> <td>134-144</td> </tr> <tr> <td>Potassium</td> <td>5.7 MEQ/L</ td> <td>3.6-5</td> </tr> <tr> <td>Chloride</td> <td>100 MEQ/L</td> <td>98-107</td> </tr> <tr> <td>CO2 - Carbon Dioxide</td> <td>28 MEQ/L</td& gt; <td>22-30</td> </tr> <tr> <td>Anion Gap</td> <td>12 MEQ/L</td> <td>5-15</td> </tr> <tr> &lt ;td>BUN - Blood Urea Nitrogen</td> <td>43.0 MG/DL</td > <td>7-17</td> </tr> <tr> <td>Glomerular Filtration Rate</td> <td>62 &lt ;/td> <td>NRG</td> </tr> <tr> <td>Glucose</td> <td>156 MG/DL</td> <td>65-110</td> </tr> <tr> <td>Osmolality,Calculated</td> <td>283 MOSM/KG< /td> <td>261-280</td> </tr> <tr& gt; <td>Calcium</td> <td>9.5 MG/DL</td> <td>8.4-10.2</td> </tr> <tr> & lt;td>LICTERUS</td> <td>< 2 </td> <td>0-7</td> </tr> <tr> <td&gt ;LHEMOLYSIS</td> <td>125 </td> <td>0-25& lt;/td> </tr> <tr> <td>LTURBIDITY&lt ;/td> <td>< 20 </td> <td>0-20</ td> </tr> <tr> <th colspan="10& quot;>L300.0125 - 06/24/17 12:00</th> </tr> <tr& gt; <td>Potassium</td> <td>5.0 MEQ/L</td& gt; <td>3.6-5</td> </tr> <tr> <td>LHEMOLYSIS</td> <td>74 </td> <td>0-25</td> </tr> <tr> < th colspan="10">L900.0530 - 06/24/17 18:58</th> </ tr> <tr> <td>Glucometer</td> < td>246 mg/dL</td> <td>65-110</td> </tr& gt; <tr> <th colspan="10">L900.0530 - 04/01 22:32</th> </tr> <tr> <td> Glucometer</td> <td>203 mg/dL</td> <td>65- 110</td> </tr> <tr> <th colspan=& quot;10">L200.0050 - 06/25/17 04:38</th> </tr> <tr> <td>FUNGAL CULTURE.</td> <td> 0.9 MG/DL</td> <td>0.7-1.2</td> </tr> <tr> <td>FUNGAL CULTURE, BLOOD.</td> & lt;td>38 RATIO</td> <td>6-26</td> </tr& gt; <tr> <td>NA - Sodium</td> <td& gt;138 MEQ/L</td> <td>134-144</td> </tr&gt ; <tr> <td>Potassium</td> <td> 4.2 MEQ/L</td> <td>3.6-5</td> </tr> <tr> <td>Chloride</td> <td>98 MEQ/L</td > <td>98-107</td> </tr> <tr> <td>CO2 - Carbon Dioxide</td> <td>33 MEQ/L& lt;/td> <td>22-30</td> </tr> <tr> <td>Anion Gap</td> <td>7 MEQ/L</td> <td>5-15</td> </tr> <tr> <td >BUN - Blood Urea Nitrogen</td> <td>34.0 MG/DL</td&gt ; <td>7-17</td> </tr> <tr> <td>Glomerular Filtration Rate</td> <td>62 </ td> <td>NRG</td> </tr> <tr> <td>Glucose</td> <td>163 MG/DL</td> <td>65-110</td> </tr> <tr> <td& gt;Osmolality,Calculated</td> <td>278 MOSM/KG</td> <td>261-280</td> </tr> <tr> <td>Calcium</td> <td>9.0 MG/DL</td> & lt;td>8.4-10.2</td> </tr> <tr> <td> LICTERUS</td> <td>< 2 </td> <td>0-7< /td> </tr> <tr> <td>LHEMOLYSIS</ td> <td>< 15 </td> <td>0-25</td > </tr> <tr> <td>LTURBIDITY</td&gt ; <td>< 20 </td> <td>0-20</td> </tr> <tr> <th colspan="10"> L200.2000 - 06/25/17 04:38</th> </tr> <tr> <td>MAG - Magnesium</td> <td>2.1 MG/DL</td&gt ; <td>1.6-2.3</td> </tr> <tr> <th colspan="10">L200.4906/25/17 18:35</th> </tr> <tr> <td>POTASSIUM</td> <td>Urine, Catheter </td> <td>NRG</td> </tr> <tr> <td>CHLORIDE</td> <td>YELLOW </td> <td>YELLOW</td> </tr > <tr> <td>ANION GAP</td> <td& gt;CLEAR </td> <td>NRG</td> </tr> & lt;tr> <td>BLOOD UREA NITROGEN</td> <td> 6.0 </td> <td>5.0-8.0</td> </tr> & lt;tr> <td>BUN/CREATININE RATIO</td> <td> NEGATIVE </td> <td>NEGATIVE</td> </tr> <tr> <td>GLUCOSE</td> <td> NEGATIVE </td> <td>NEGATIVE</td> </tr> <tr> <td>CALCIUM</td> <td>NEGATIVE </ td> <td>NEGATIVE</td> </tr> <tr& gt; <td>BILIRUBIN, CONJUG &amp; UNCONJUG</td> <td>NEGATIVE </td> <td>NEGATIVE</td></ tr> <tr> <td>TOTAL PROTEIN</td> & lt;td>1-3 /HPF</td> <td>0-3</td> </tr&gt ; <tr> <td>ALBUMIN</td> <td>1- 3 /HPF</td> <td>0-5</td> </tr> & lt;tr> <td>ALBUMIN/GLOBULIN RATIO</td> <td& gt;0-5 </td> <td>NRG</td> </tr> & lt;tr> <td>AST (SGOT)</td> <td>1-3 /HPF& lt;/td> <td>NRG</td> </tr> <tr> <td>CKMB</td> <td>Trace </td> <td>NEGATIVE</td> </tr> <tr> & lt;td>TROPONIN I</td> <td>0-1 /LPF</td> & lt;td>NRG</td> </tr> <tr> <td> GENTAMICIN,RANDOM</td> <td>Cult not indicated </td> <td>NRG</td> </tr> <tr> & lt;td>Specific [place],Urine</td> <td>1.010 </td> <td>1.015-1.025</td> </tr> <tr> <td>Leukocyte Esterase,Urine</td> <td> TRACE </td> <td>NEGATIVE</td> </tr> & lt;tr> <td>Nitrate,Urine</td> <td> NEGATIVE </td> <td>NEGATIVE</td> </tr> <tr><td>Urobilinogen,Urine</td> <td>0.2 EU/DL</td> <td>NORMAL</td> </tr> <tr> <td>Occult Blood,Urine - Dipstick</td> <td>1+ </td> <td>NEGATIVE</td> </tr& gt; <tr> <th colspan="10">L900.0505/02 22:35</th> </tr> <tr> <td> Glucometer</td> <td>141mg/dL</td> <td> 65-110</td> </tr> <tr> <th colspan=& quot;10">L900.52906/26/17 05:58</th> </tr> <tr> <td>Glucometer</td> <td>133 mg/ dL</td> <td>65-110</td> </tr> &lt ;tr> <th colspan="10">L900.0506/26/17 13:43< /th> </tr> <tr> <td>Glucometer</ td> <td>155 mg/dL</td> <td>65-110</td& gt; </tr> <tr> <th colspan="10"& gt;L900.0530 - 06/26/17 20:31</th> </tr> <tr> <td>Glucometer</td> <td>175 mg/dL</td> <td>65-110</td> </tr> <tr> <th colspan="10">L200.0020 - 06/27/17 04:53</th> </tr> <tr> <td>FUNGAL CULTURE.</td> <td>0.9 MG/DL</td> <td>0.7-1.2</td> </ tr> <tr> <td>FUNGAL CULTURE, BLOOD.</td> <td>41 RATIO</td> <td>6-26</td> & lt;/tr> <tr> <td>NA - Sodium</td> <td>139MEQ/L</td> <td>134-144</td> </ tr> <tr><td>Potassium</td> <td>4.5 MEQ/L</td> <td>3.6-5</td> </tr> & lt;tr> <td>Chloride</td> <td>95 MEQ/L< /td> <td>98-107</td> </tr> <tr&gt ; <td>CO2 - Carbon Dioxide</td> <td>35 MEQ/L</td& gt; <td>22-30</td> </tr> <tr> <td>Anion Gap</td> <td>9 MEQ/L</td> & lt;td>5-15</td> </tr> <tr> <td&gt ;BUN - Blood Urea Nitrogen</td> <td>37.0 MG/DL</td> <td>7-17</td> </tr> <tr> & lt;td>GlomerularFiltration Rate</td> <td>62 </td> <td>NRG</td> </tr> <tr> <td >Glucose</td> <td>137 MG/DL</td> <td& gt;65-110</td> </tr> <tr> <td> Osmolality,Calculated</td> <td>279 MOSM/KG</td> <td>261-280</td> </tr> <tr> <td>Calcium</td> <td>9.6 MG/DL</td> & lt;td>8.4-10.2</td> </tr> <tr> < td>Bilirubin,Total</td> <td>0.40 MG/DL</td> <td>0.20-1.30</td> </tr> <tr> <td>Alkaline Phosphatase</td> <td>46 U/L</td&gt ; <td>38-126</td> </tr> <tr> <td>AST - Aspartate Amino Transfer</td> <td>32 U/L</td> <td>14-36</td> </tr> &lt ;tr> <td>ALT</td> <td>29 U/L</td> <td>9-52</td> </tr> <tr> <td> TP - Total Protein</td> <td>6.8 G/DL</td> & lt;td>6.3-8.2</td> </tr> <tr> <td> Albumin Level</td> <td>3.4 G/DL</td> <td& gt;3.5-5.0</td> </tr> <tr> <td> Globulin</td><td>3.4 G/DL</td> <td>2.4-3.6</ td> </tr> <tr> <td>Albumin/Globulin Ratio</td> <td>1.0 RATIO</td> <td>1.1-2.2& lt;/td> </tr> <tr> <td>LICTERUS</ td> <td>< 2 </td> <td>0-7</td& gt; </tr> <tr> <td>LHEMOLYSIS</td&gt ; <td>51 </td> <td>0-25</td> </tr& gt; <tr> <td>LTURBIDITY</td> <td& gt;< 20 </td> <td>0-20</td> </tr&gt ; <tr> <th colspan="10">L200.1999 - 04:53</th> </tr> <tr> <td>MAG - Magnesium</td> <td>1.8 MG/DL</td> <td& gt;1.6-2.3</td> </tr> <tr> <th colspan=& quot;10">L100.0050 - 06/27/17 04:53</th> </tr> <tr > <td>WBC - WHITE BLOOD COUNT</td> <td> 9.0 T/MM3</td> <td>4.5-11.0</td> </tr> <tr> <td>RED BLOOD COUNT</td> <td& gt;4.27 M/MM3</td> <td>4.00-5.20</td> </tr& gt; <tr> <td>HGB - HEMOGLOBIN</td> & lt;td>12.5 GM/DL</td> <td>12-16</td> </ tr> <tr> <td>HCT - HEMATOCRIT</td> <td>38.4 %</td> <td>36-46</td> </tr > <tr> <td>MEAN CORPUSCULAR VOLUME</td> <td>89.9 UM3</td> <td>80-100</td> </ tr> <tr> <td>MEAN CORPUSCULAR HGB</td> <td>29.3 UUG</td> <td>26-34</td> & lt;/tr> <tr> <td>MEAN CORPUSCULAR HGB CONC(MCHC</td&gt ; <td>32.6 GM/DL</td> <td>31-37</td> & lt;/tr> <tr> <td>RDW STANDARD DEVIATION</td&gt ; <td>51.5 FL</td> <td>36.9-50.2</td> </tr> <tr> <td>PLT - PLATELET COUNT</td& gt; <td>266 T/MM3</td> <td>130-400</td&gt ; </tr> <tr> <td>MEAN PLATELET VOLUME</td > <td>10.3 UM3</td> <td>9.4-12.4</td& gt; </tr> <tr> <td>NEUTROPHILS &#37 ; (AUTO)</td> <td>66.2 %</td> <td >33-66</td> </tr> <tr> <td> LYMPHOCYTES % (AUTO)</td> <td>20.0 %</td> <td>23-45</td> </tr><tr> <td& gt;MONOCYTES % (AUTO)</td> <td>6.9 %</td > <td>0-9.0</td> </tr> <tr> <td>EOSINOPHILS % (AUTO)</td> <td> 4.7 %</td> <td>0-4</td> </tr> <tr> <td>BASOPHILS % (AUTO)</td> <td>0.6 %</td> <td>0-2</td> </tr> <tr> <td>IMMATURE GRANULOCYTE % (AUTO)</td> <td>1.6 %</td> <td>0.0-0.5 </td> </tr><tr> <td>NEUTROPHILS # (AUTO) </td> <td>6.0 T/MM3</td> <td>1.8-7.7& lt;/td> </tr> <tr> <td>LYMPHOCYTES # (AUTO)</td> <td>1.8 T/MM3</td> <td>1 -4.8</td> </tr> <tr> <td> MONOCYTES # (AUTO)</td> <td>0.6 T/MM3</td> & lt;td>0-0.8</td> </tr> <tr> <td> EOSINOPHILS # (AUTO)</td> <td>0.4 T/MM3</td> <td>0-0.5</td> </tr> <tr> < td>BASOPHILS # (AUTO)</td> <td>0.1 T/MM3</td> <td>0-0.2</td> </tr> <tr> & lt;td>IMMATURE GRANULOCYTE # (AUTO)</td> <td>0.14 T/MM3& lt;/td> <td>0.00-0.03</td> </tr> &lt ;tr> <th colspan="10">L900.0530 - 06/27/17 18:10</th& gt; </tr> <tr> <td>Glucometer</td> <td>307 mg/dL</td> <td>65-110</td> </tr > <tr> <th colspan="10">L900.0530 - 21:13</th> </tr> <tr> <td> Glucometer</td> <td>203 mg/dL</td> <td&gt ;65-110</td> </tr> <tr> <th colspan=& quot;10">L900.0506/28/17 05:46</th> </tr> <tr> <td>Glucometer</td> <td>130 mg/dL</td > <td>65-110</td> </tr> <tr> <th colspan="10">L749.2000 - 07/09/17 10:57</th> </tr> <tr> <td>NA - Sodium - AMS</ td> <td>140 mEq/L</td> <td>135-144</td > </tr> <tr> <td>Potassium - AMS< /td> <td>4.0 mEq/L</td> <td>3.5-5.2</ td> </tr> <tr> <td>Chloride- AMS< /td> <td>100 mEq/L</td> <td>99-111</td > </tr> <tr> <td>CO2 - Carbon Dioxide- AMS</td> <td>26 mEq/L</td><td>22-31</td> </tr> <tr> <td>Anion Gap - AMS</td& gt; <td>14 mEq/L</td> <td>3-20</td> </tr> <tr> <td>BUN - Blood Urea Nitrogen -AMS</td> <td>32 mg/dL</td> <td& gt;10-20</td> </tr> <tr> <td> Creatinine - AMS</td> <td>0.92 mg/dL</td> & lt;td>0.57-1.11</td> </tr> <tr> < td>Glomerular Filtration Rate-AMS</td> <td>60 mL/min< /td> <td>>60</td> </tr> <tr> <td>Glucose - AMS</td> <td>132 mg/dL</td& gt; <td>70-99</td> </tr> <tr> <td>Calcium - AMS</td> <td>9.6 mg/dL</td&gt ; <td>8.4-10.2</td> </tr> <tr> <td>Bilirubin,Total - AMS</td> <td>0.3 mg/dL</ td> <td>0.2-1.2</td> </tr> <tr&gt ; <td>Alkaline Phosphatase - AMS</td> <td> 42 U/L</td> <td>40-150</td> </tr> <tr> <td>AST - Aspartate Amino Transfer</td> <td>15 U/L</td> <td>5-34</td> </ tr> <tr> <td>ALT - AMS</td> <td >28 U/L</td> <td>0-55</td> </tr> <tr> <td>TP - Total Protein - AMS</td> <td> 6.7 g/dL</td> <td>6.0-7.6</td> </tr> <tr> <td>Albumin Level - AMS</td> < td>3.7 g/dL</td> <td>3.4-4.8</td> </tr& gt; <tr> <td>Globulin - AMS</td> < td>3.0 g/dL</td> <td>1.8-4.0</td> </tr& gt; <tr> <th colspan="10">L908.3066 - 10:57</th> </tr> <tr> <td>MAG - Magnesium - AMS</td> <td>1.7 mg/dL</td> < td>1.6-2.6</td> </tr> <tr> <th colspan="10">L200.0052 - 08/12/17 10:46</th> </tr& gt; <tr> <td>Specimen Type, Urine - MK</td> <td>Urine, Clean Catch </td> <td>NRG</td& gt; </tr> <tr> <td>Color, Urine - MK&lt ;/td> <td>YELLOW </td> <td>YELLOW</td&gt ; </tr> <tr> <td>Clarity,Urine - MK< /td> <td>CLOUDY </td> <td>NRG</td> </tr> <tr> <td>Specific [place],Urine - MK& lt;/td> <td>1.015 </td> <td>1.015-1.025& lt;/td> </tr> <tr> <td>PH,Urine - MK </td> <td>5.5 </td> <td>5.0-8.0</td > </tr> <tr><td>Leukocyte Esterase,Urine - MK </td> <td>2+ </td> <td>NEGATIVE</td > </tr> <tr> <td>Nitrate,Urine - MK& lt;/td> <td>NEGATIVE </td> <td>NEGATIVE& lt;/td> </tr> <tr> <td>Protein, Urine - Dipstick - MK</td> <td>NEGATIVE </td> <td>NEGATIVE</td> </tr> <tr> < td>Glucose,Urine - Dipstick - MK</td> <td>NEGATIVE </ td> <td>NEGATIVE</td> </tr> <tr> <td>Ketones,Urine - Dipstick - MK</td> <td> NEGATIVE </td> <td>NEGATIVE</td> </tr> <tr> <td>Urobilinogen,Urine - MK</td> & lt;td>0.2 EU/DL</td> <td>NORMAL</td> </ tr> <tr> <td>Bilirubin,Urine - Dipstick -MK</td> <td>NEGATIVE</td> <td>NEGATIVE</td> </tr> <tr> <td>Occult Blood,Urine- Dipstick-MK</td> <td>TRACE-INTACT </td><td> NEGATIVE</td> </tr> <tr> <th colspan ="10">L200.0052 - 08/12/17 10:46</th> </tr> <tr> <td>Specimen Type, Urine - MK</td> <td>Urine, Clean Catch </td> <td>NRG</td> </tr> <tr> <td>Color, Urine - MK</td&gt ; <td>YELLOW </td> <td>YELLOW</td> </tr> <tr> <td>Clarity,Urine - MK</td&gt ; <td>CLOUDY </td> <td>NRG</td> </tr> <tr> <td>SpecificGravity,Urine - MK&lt ;/td> <td>1.015 </td> <td>1.015-1.025< /td> </tr> <tr> <td>PH,Urine - MK&lt ;/td> <td>5.5 </td> <td>5.0-8.0</td&gt ; </tr> <tr> <td>Leukocyte Esterase,Urine - MK</td> <td>2+ </td> <td>NEGATIVE&lt ;/td> </tr> <tr> <td>Nitrate,Urine - MK</td> <td>NEGATIVE </td> <td> NEGATIVE</td> </tr> <tr> <td> Protein,Urine - Dipstick - MK</td> <td>NEGATIVE </td&gt ; <td>NEGATIVE</td> </tr> <tr> <td>Glucose,Urine - Dipstick - MK</td> <td> NEGATIVE </td> <td>NEGATIVE</td> </tr> <tr> <td>Ketones,Urine - Dipstick - MK</td> <td>NEGATIVE </td> <td>NEGATIVE</td> </tr> <tr> <td>Urobilinogen,Urine - MK& lt;/td> <td>0.2 EU/DL</td> <td>NORMAL< /td> </tr> <tr> <td>Bilirubin,Urine - Dipstick -MK</td> <td>NEGATIVE </td> < td>NEGATIVE</td> </tr> <tr> <td> Occult Blood,Krffj-Orwzccxc-HN</td> <td>TRACE-INTACT </ td> <td>NEGATIVE</td> </tr> <tr> <td>RBC,Urine - MK</td> <td>None Seen /HPF& lt;/td> <td>0-3</td> </tr> <tr> <td>WBC,Urine - MK</td> <td>20-30 /HPF</td& gt; <td>0-5</td> </tr> <tr> <td>WBC Clumps,Urine - MK</td> <td>Few </td& gt; <td>NRG</td> </tr> <tr> <td>Squamous Epithelial Cell,Ur-MK</td> <td> None seen </td> <td>NRG</td> </tr> & lt;tr> <td>Transitional Epi Cells,Ur-MK</td> & lt;td>None seen /HPF</td> <td>NRG</td> < /tr> <tr> <td>Renal Epithelial Cells,Ur-MK</td > <td>None seen /HPF</td><td>NRG</td> </tr> <tr> <td>Amorphous Sediment,Urine-MK& lt;/td> <td>Few </td> <td>NRG</td> </tr> <tr> <td>Bacteria,Urine-MK</ td> <td>3+ </td> <td>NEGATIVE</td> </tr> <tr> <td>Culture Indicated,Ur- UAMIC-MK</td> <td>Cult reflexed &setup </td> <td>NRG</td> </tr> <tr> & lt;th colspan="10">M750.1005 - 08/12/17 10:46</th> &lt ;/tr> <tr> <td>Urine Culture - AMS</td> <td> Source: Urine Collected: 10:46 </td> <td>NRG</td> </tr> <tr> <th colspan="10">L200.0052 - 08/25/17 12 :10</th> </tr> <tr> <td>Specimen Type, Urine - MK</td> <td>Urine, Clean Catch </td> <td>NRG</td> </tr> <tr> < td>Color, Urine - MK</td> <td>YELLOW </td> <td>YELLOW</td> </tr> <tr> &lt ;td>Clarity,Urine - MK</td> <td>CLEAR </td> <td>NRG</td> </tr> <tr> <td> Specific [place],Urine - MK</td> <td>1.020 </td> <td>1.015-1.025</td> </tr> <tr> <td>PH,Urine - MK</td> <td>5.5 </td> <td>5.0-8.0</td> </tr> <tr> <td>Leukocyte Esterase,Urine - MK</td> <td>NEGATIVE </ td> <td>NEGATIVE</td> </tr><tr> <td>Nitrate,Urine - MK</td> <td>NEGATIVE </td > <td>NEGATIVE</td> </tr> <tr> <td>Protein,Urine - Dipstick - MK</td> <td>1 + </td> <td>NEGATIVE</td> </tr> & lt;tr> <td>Glucose,Urine - Dipstick - MK</td> & lt;td>NEGATIVE </td> <td>NEGATIVE</td> < /tr> <tr> <td>Ketones,Urine - Dipstick - MK</td& gt; <td>TRACE </td> <td>NEGATIVE</td> </tr> <tr> <td>Urobilinogen,Urine - MK </td> <td>0.2 EU/DL</td> <td>NORMAL&lt ;/td> </tr> <tr> <td>Bilirubin, Urine - Dipstick-MK</td> <td>NEGATIVE </td> <td>NEGATIVE</td></tr> <tr> <td> Occult Blood,Yinea-Wstyktrs-BY</td> <td>NEGATIVE </td&gt ; <td>NEGATIVE</td> </tr> <tr> <td>RBC,Urine - MK</td> <td>None Seen /HPF&lt ;/td> <td>0-3</td> </tr> <tr> <td>WBC,Urine - MK</td> <td>None Seen /HPF</td& gt; <td>0-5</td> </tr> <tr> <td>WBC Clumps,Urine - MK</td> <td>None Seen &lt ;/td> <td>NRG</td> </tr> <tr> <td>Squamous Epithelial Cell,Ur-MK</td> <td&gt ;None seen </td> <td>NRG</td> </tr> <tr> <td>Transitional Epi Cells,Ur-MK</td> <td>None seen /HPF</td> <td>NRG</td> </ tr> <tr> <td>Renal Epithelial Cells,Ur-MK</td& gt; <td>None seen /HPF</td> <td>NRG</td& gt; </tr> <tr> <td>Calcium Carbonate Cryst,Ur-MK</td> <td>None seen </td> <td& gt;NRG</td> </tr> <tr> <td> Calcium Phosphate Cryst,Ur-MK</td> <td>None seen </td&gt ; <td>NRG</td> </tr> <tr> <td>Calcium Oxalate Crystals,Ur-MK</td> <td>Few & lt;/td> <td>NRG</td> </tr> <tr&gt ; <td>Cystine Crystals,Urine-MK</td> <td> None seen </td> <td>NRG</td> </tr> <tr> <td>UricAcid Crystals,Urine-MK</td> <td>Few </td> <td>NRG</td> </tr> <tr> <td>Triple Phosphate Crystal,Ur-MK</td> <td>None seen </td> <td>NRG</td> </tr> <tr> <td>Tyrosine Crystal,Urine-MK</ td> <td>None seen </td> <td>NRG</td&gt ; </tr> <tr> <td>Amorphous Sediment, Urine-MK</td> <td>Moderate </td> <td> NRG</td> </tr> <tr> <td>Bacteria, Urine-MK</td><td>1+ </td> <td>NEGATIVE</td& gt; </tr> <tr> <td>Fatty Casts,Urine-MK& lt;/td> <td>None seen /LPF</td> <td>NRG</td& gt; </tr> <tr> <td>Hyaline Casts,Urine- MK</td> <td>1-3 /LPF</td> <td>NRG</ td> </tr> <tr> <td>Granular Casts, Urine-MK</td> <td>None seen </td> <td> NRG</td> </tr> <tr><td>Waxy Casts,Urine-MK </td> <td>None seen /LPF</td> <td>NRG& lt;/td> </tr> <tr> <td>Red Blood Cell Casts,Urine-MK</td> <td>None seen /LPF</td> <td>NRG</td></tr> <tr> <td> White Blood Cell Casts,Ur-MK</td> <td>None seen /LPF</td > <td>NRG</td> </tr> <tr> <td>Hemoglogin casts, Urine-MK</td> <td>None seen /LPF</td> <td>NRG</td> </tr> <tr> <td>Starch,Urine-MK</td> <td> None seen </td> <td>NRG</td> </tr> < tr> <td>Mucus,Urine-MK</td> <td>None seen </td> <td>NRG</td> </tr> &lt ;tr> <td>Trichomonas,Urine-MK</td> <td> None seen </td> <td>NRG</td> </tr> <tr> <td>Yeast,Urine-MK</td> <td>None seen & lt;/td> <td>NEGATIVE</td> </tr> < tr> <td>Sperm,Urine-MK</td> <td>None seen </td> <td>NRG</td> </tr> <tr> <td>Oval Fat Bodies,Urine-MK</td> <td>None seen </td> <td>NRG</td> </tr> &lt ;tr> <td>Culture Indicated,Ur-UAMIC-MK</td> &lt ;td>Cult ordered & setup </td> <td>NRG</td&gt ; </tr> <tr> <th colspan="10"> M750.1005 - 08/25/17 12:33</th> </tr> <tr> <td>Urine Culture - AMS</td> <td> Source: Urine Collected: 08/25/17 12:33 </td> <td >NRG</td> </tr> <tr> <th colspan= "10">L200.0052 - 09/03/17 13:07</th> </tr> <tr> <td>Specimen Type, Urine - MK</td> & lt;td>Urine, Clean Catch </td> <td>NRG</td> </tr> <tr> <td>Color, Urine - MK</td> <td>YELLOW </td> <td>YELLOW</td> < /tr> <tr> <td>Clarity,Urine - MK</td> <td>SL CLOUDY </td> <td>NRG</td> </tr& gt; <tr> <td>Specific [place],Urine - MK</td> <td>1.015 </td> <td>1.015-1.025</td> </tr> <tr> <td>PH,Urine - MK</td&gt ; <td>5.5 </td> <td>5.0-8.0</td> </tr> <tr> <td>Leukocyte Esterase,Urine - MK</td> <td>2+ </td> <td>NEGATIVE</ td> </tr> <tr> <td>Nitrate,Urine - MK</td> <td>POSITIVE </td> <td> NEGATIVE</td> </tr> <tr> <td> Protein,Urine - Dipstick - MK</td> <td>TRACE </td> <td>NEGATIVE</td> </tr> <tr> < td>Glucose,Urine - Dipstick - MK</td> <td>NEGATIVE </ td><td>NEGATIVE</td> </tr> <tr> <td>Ketones,Urine - Dipstick - MK</td> <td>TRACE & lt;/td> <td>NEGATIVE</td> </tr> < tr> <td>Urobilinogen,Urine - MK</td><td>0.2 EU/DL& lt;/td> <td>NORMAL</td> </tr> <tr > <td>Bilirubin,Urine - Dipstick -MK</td> < td>NEGATIVE </td> <td>NEGATIVE</td> </tr > <tr> <td>Occult Blood,Pvfwn-Dsayifdm-QZ</td& gt; <td>NEGATIVE </td> <td>NEGATIVE</td& gt; </tr> <tr> <td>RBC,Urine - MK</ td> <td>None Seen /HPF</td> <td>0-3</td& gt; </tr> <tr> <td>WBC,Urine - MK</td&gt ; <td>30-50 /HPF</td> <td>0-5</td> </tr> <tr> <td>WBC Clumps,Urine - MK</td > <td>Few </td> <td>NRG</td> </tr> <tr> <td>Squamous Epithelial Cell,Ur- MK</td> <td>0-5 </td> <td>NRG</td& gt; </tr> <tr><td>Bacteria,Urine-MK</td> <td>2+ </td> <td>NEGATIVE</td> </tr> <tr> <td>Culture Indicated,Ur-UAMIC-MK& lt;/td> <td>Cult reflexed &setup </td> <td>NRG</td> </tr> <tr> <th colspan="10">M750.1005 - 09/03/17 13:07</th> </tr& gt; <tr> <td>Urine Culture - AMS</td> <td> Source: Urine Collected: 09/03/17 13: 07 </td> <td>NRG</td> </tr> &lt ;tr> <th colspan="10">L200.0113 - 09/15/17 08:41< /th> </tr> <tr> <td>Specimen Type, Urine - MK</td> <td>Urine, Clean Catch </td> < td>NRG</td> </tr> <tr> <td> Color, Urine - MK</td> <td>YELLOW </td> < td>YELLOW</td> </tr> <tr> <td> Clarity,Urine - MK</td> <td>CLEAR </td> < td>NRG</td> </tr> <tr> <td> Specific [place],Urine - MK</td> <td>1.015 </td> <td>1.015-1.025</td> </tr> <tr> <td>PH,Urine - MK</td> <td>6.0 </td> & lt;td>5.0-8.0</td> </tr> <tr> <td >Leukocyte Esterase,Urine - MK</td> <td>TRACE </td&gt ; <td>NEGATIVE</td> </tr> <tr> <td>Nitrate,Urine - MK</td> <td>NEGATIVE </ td> <td>NEGATIVE</td> </tr> <tr& gt; <td>Protein,Urine - Dipstick - MK</td> <td> NEGATIVE </td> <td>NEGATIVE</td> </tr> <tr> <td>Glucose,Urine - Dipstick - MK</td> <td>NEGATIVE</td> <td>NEGATIVE</td> < /tr> <tr> <td>Ketones,Urine - Dipstick - MK</ td> <td>NEGATIVE </td> <td>NEGATIVE</ td> </tr> <tr> <td>Urobilinogen, Urine - MK</td> <td>0.2 EU/DL</td> <td&gt ;NORMAL</td> </tr> <tr> <td> Bilirubin,Urine - Dipstick -MK</td> <td>NEGATIVE </td&gt ; <td>NEGATIVE</td> </tr> <tr> <td>Occult Blood,Ifvaf-Uljfrouk-ZN</td> <td> TRACE-INTACT </td> <td>NEGATIVE</td> </tr& gt; <tr> <td>Urine Microscopic (UA-MK)</td> <td>Microscopic Not Ind. </td> <td>NRG</td > </tr> <tr> <th colspan="10" >L200.0052 - 09/21/17 10:50</th> </tr> <tr> <td>Specimen Type, Urine - MK</td> <td>Urine , Clean Catch </td> <td>NRG</td> </tr> <tr> <td>Color, Urine - MK</td> <td& gt;YELLOW </td> <td>YELLOW</td> </tr> <tr> <td>Clarity,Urine - MK</td> < td>SL CLOUDY </td> <td>NRG</td> </tr> <tr> <td>Specific [place],Urine - MK</td> <td>1.010 </td> <td>1.015-1.025</td> </tr> <tr> <td>PH,Urine - MK</td> <td>5.0 </td> <td>5.0-8.0</td> & lt;/tr> <tr> <td>Leukocyte Esterase,Urine - MK</td&gt ; <td>1+ </td> <td>NEGATIVE</td> </tr> <tr> <td>Nitrate,Urine - MK</td&gt ; <td>POSITIVE </td> <td>NEGATIVE</td&gt ; </tr> <tr> <td>Protein,Urine - Dipstick - MK</td> <td>NEGATIVE </td> <td >NEGATIVE</td> </tr> <tr> <td> Glucose,Urine - Dipstick - MK</td> <td>NEGATIVE </td&gt ; <td>NEGATIVE</td> </tr> <tr> <td>Ketones,Urine - Dipstick - MK</td> <td> NEGATIVE </td> <td>NEGATIVE</td> </tr> <tr> <td>Urobilinogen,Urine - MK</td> <td>0.2 EU/DL</td> <td>NORMAL</td> &lt ;/tr> <tr> <td>Bilirubin,Urine - Dipstick -MK</td& gt; <td>NEGATIVE </td> <td>NEGATIVE</td& gt; </tr> <tr> <td>Occult Blood,Urine- Dipstick-MK</td> <td>NEGATIVE </td> <td& gt;NEGATIVE</td> </tr> <tr> <td> RBC,Urine - MK</td> <td>None Seen /HPF</td> <td>0-3</td> </tr> <tr> <td&gt ;WBC,Urine - MK</td> <td>20-30 /HPF</td> &lt ;td>0-5</td> </tr> <tr> <td> WBC Clumps,Urine - MK</td> <td>Many </td> & lt;td>NRG</td> </tr> <tr> <td> Squamous Epithelial Cell,Ur-MK</td> <td>0-5 </td> <td>NRG</td> </tr> <tr> <td >Bacteria,Urine-MK</td> <td>2+ </td> < td>NEGATIVE</td> </tr> <tr> <td& gt;Culture Indicated,Ur-UAMIC-MK</td> <td>Cult reflexed & amp;amp;setup </td> <td>NRG</td> </tr> <tr> <th colspan="10">M750.1005 - 10:50</th> </tr> <tr> <td> Urine Culture - AMS</td> <td> Source: Urine Collected: 09/21/17 10:50 </td> <td>NRG&lt ;/td> </tr> <tr> <th colspan="10& quot;>L200.0050 - 10/05/17 20:52</th> </tr> <tr& gt; <td>POTASSIUM</td> <td>Urine, [place] </td> <td>NRG</td> </tr> <tr& gt; <td>CHLORIDE</td> <td>YELLOW </td&gt ; <td>YELLOW</td> </tr> <tr> & lt;td>ANION GAP</td> <td>CLEAR </td> < td>NRG</td> </tr> <tr> <td> BLOOD UREA NITROGEN</td> <td>5.5 </td> < td>5.0-8.0</td> </tr> <tr> <td> BUN/CREATININE RATIO</td> <td>NEGATIVE </td> <td>NEGATIVE</td> </tr> <tr> & lt;td>GLUCOSE</td> <td>NEGATIVE </td> &lt ;td>NEGATIVE</td> </tr> <tr> <td> CALCIUM</td> <td>NEGATIVE</td> <td> NEGATIVE</td> </tr> <tr> <td> BILIRUBIN, CONJUG &amp; UNCONJUG</td> <td>NEGATIVE </td> <td>NEGATIVE</td> </tr> <tr& gt; <td>TOTAL PROTEIN</td> <td>1-3 /HPF</ td> <td>0-3</td> </tr> <tr> <td>ALBUMIN</td> <td>10-20 /HPF</td> <td>0-5</td> </tr> <tr> & lt;td>LDL CHOLESTEROL,CALCULATED</td> <td>Moderate </ td> <td>NRG</td> </tr> <tr> <td>CKMB</td> <td>1+ </td> &lt ;td>NEGATIVE</td> </tr> <tr> <td& gt;GENTAMICIN,RANDOM</td> <td>Cult reflexed &setup </td> <td>NRG</td> </tr> <tr& gt; <td>Specific [place],Urine</td> <td> 1.020 </td> <td>1.015-1.025</td> </tr> <tr> <td>Leukocyte Esterase,Urine</td> <td>1+ </td> <td>NEGATIVE</td> </ tr> <tr><td>Nitrate,Urine</td> <td> POSITIVE </td> <td>NEGATIVE</td> </tr> <tr> <td>Urobilinogen,Urine</td> <td& gt;0.2 EU/DL</td> <td>NORMAL</td> </tr>& lt;tr> <td>Occult Blood,Urine - Dipstick</td> & lt;td>2+ </td> <td>NEGATIVE</td> </tr&gt ; <tr> <th colspan="10">M120.0100 - 20:52</th> </tr> <tr> <td>Urine Culture</td> <td> CFU/ml</td> <td>NRG </td> </tr> <tr> <th colspan=" 10">L300.7373 - 10/29/17 09:41</th> </tr> < tr> <td>LAUMA3A-FV</td> <td>8.6 % </td> <td>4.0-5.7</td> </tr> < tr> <th colspan="10">L200.0052 - 10/30/17 12:57</ th> </tr> <tr> <td>Specimen Type, Urine - MK</td> <td>Urine, Clean Catch </td> <td& gt;NRG</td> </tr> <tr> <td>Color, Urine - MK</td> <td>YELLOW </td> <td> YELLOW</td> </tr> <tr> <td> Clarity,Urine - MK</td> <td>CLOUDY </td> &lt ;td>NRG</td> </tr> <tr> <td> Specific [place],Urine - MK</td> <td>1.020 </td> <td>1.015-1.025</td> </tr> <tr> <td>PH,Urine - MK</td> <td>5.0 </td> <td>5.0-8.0</td> </tr> <tr> <td>Leukocyte Esterase,Urine - MK</td> <td>1+ </td > <td>NEGATIVE</td> </tr> <tr&gt ; <td>Nitrate,Urine - MK</td> <td>POSITIVE & lt;/td> <td>NEGATIVE</td> </tr> < tr> <td>Protein,Urine - Dipstick - MK</td> < td>TRACE </td> <td>NEGATIVE</td> </tr&gt ; <tr> <td>Glucose,Urine - Dipstick - MK</td> <td>NEGATIVE </td> <td>NEGATIVE</td>& lt;/tr> <tr> <td>Ketones,Urine - Dipstick - MK&lt ;/td> <td>NEGATIVE </td> <td>NEGATIVE< /td> </tr> <tr> <td>Urobilinogen, Urine - MK</td> <td>0.2 EU/DL</td> <td> NORMAL</td> </tr> <tr> <td> Bilirubin,Urine - Dipstick -MK</td> <td>NEGATIVE </td&gt ; <td>NEGATIVE</td> </tr> <tr> <td>Occult Blood,Tbsku-Sacfxdjx-CK</td> <td>1 + </td> <td>NEGATIVE</td> </tr> < tr> <th colspan="10">L200.0052 - 10/30/17 12:57</ th> </tr> <tr> <td>Specimen Type, Urine - MK</td> <td>Urine, Clean Catch </td> <td& gt;NRG</td> </tr> <tr> <td>Color , Urine - MK</td> <td>YELLOW </td><td>YELLOW&lt ;/td> </tr> <tr> <td>Clarity,Urine - MK</td> <td>CLOUDY </td> <td>NRG< /td> </tr> <tr> <td>Specific [place] ,Urine - MK</td> <td>1.020 </td> <td> 1.015-1.025</td> </tr> <tr> <td>PH,Urine - MK</td> <td>5.0 </td> <td>5.0-8.0&lt ;/td> </tr> <tr> <td>Leukocyte Esterase,Urine - MK</td> <td>1+ </td> <td >NEGATIVE</td> </tr> <tr> <td> Nitrate,Urine - MK</td> <td>POSITIVE </td> & lt;td>NEGATIVE</td> </tr> <tr> < td>Protein,Urine - Dipstick - MK</td> <td>TRACE </td& gt; <td>NEGATIVE</td> </tr> <tr> <td>Glucose,Urine - Dipstick - MK</td> <td> NEGATIVE </td> <td>NEGATIVE</td> </tr> <tr> <td>Ketones,Urine - Dipstick - MK</td> <td>NEGATIVE </td> <td>NEGATIVE</td> </tr> <tr> <td>Urobilinogen,Urine - MK</ td> <td>0.2 EU/DL</td> <td>NORMAL</td& gt; </tr> <tr> <td>Bilirubin,Urine - Dipstick -MK</td> <td>NEGATIVE </td> <td& gt;NEGATIVE</td> </tr> <tr> <td> Occult Blood,Hsjgc-Bboymdbf-PY</td> <td>1+ </td> <td>NEGATIVE</td> </tr> <tr> <td>RBC,Urine - MK</td> <td>5-10 /HPF</td> < td>0-3</td> </tr> <tr> <td>WBC ,Urine - MK</td> <td>50-200 /HPF</td> <td >0-5</td> </tr> <tr> <td>WBC Clumps,Urine - MK</td> <td>Few </td> <td& gt;NRG</td> </tr> <tr> <td> Squamous Epithelial Cell,Ur-MK</td> <td>0-5 </td> <td>NRG</td> </tr> <tr> & lt;td>Amorphous Sediment,Urine-MK</td> <td>Many </td&gt ; <td>NRG</td> </tr> <tr> <td>Bacteria,Urine-MK</td> <td>2+ </td> <td>NEGATIVE</td> </tr> <tr> <td>Mucus,Urine-MK</td> <td>Present </td> <td>NRG</td> </tr> <tr> <td >Culture Indicated,Ur-UAMIC-MK</td> <td>Cult reflexed & amp;amp;setup </td> <td>NRG</td> </tr> <tr> <th colspan="10">M750.1005 - 12:57</th> </tr> <tr> <td> Urine Culture - AMS</td> <td> Source: Urine Collected: 10/30/17 12:57 </td> <td>NRG&lt ;/td> </tr> <tr> <th colspan="10& quot;>L200.0113 - 11/12/17 11:57</th> </tr> <tr& gt; <td>Specimen Type, Urine - MK</td> <td> Urine, Clean Catch </td> <td>NRG</td> </tr> <tr> <td>Color, Urine - MK</td> <td >YELLOW </td> <td>YELLOW</td> </tr> <tr> <td>Clarity,Urine - MK</td> < td>CLEAR </td> <td>NRG</td> </tr> <tr> <td>Specific [place],Urine - MK</td> <td>1.015 </td> <td>1.015-1.025</td> </tr> <tr> <td>PH,Urine - MK</td> <td>5.5 </td> <td>5.0-8.0</td> </tr& gt; <tr> <td>Leukocyte Esterase,Urine - MK</td&gt ; <td>TRACE </td> <td>NEGATIVE</td> </tr> <tr> <td>Nitrate,Urine - MK</td > <td>NEGATIVE </td> <td>NEGATIVE</td& gt; </tr> <tr> <td>Protein,Urine - Dipstick - MK</td> <td>NEGATIVE </td> <td >NEGATIVE</td> </tr> <tr> <td> Glucose,Urine - Dipstick - MK</td> <td>NEGATIVE </td&gt ; <td>NEGATIVE</td> </tr> <tr> <td>Ketones,Urine - Dipstick - MK</td> <td> NEGATIVE </td> <td>NEGATIVE</td> </tr> <tr> <td>Urobilinogen,Urine - MK</td> <td>0.2 EU/DL</td> <td>NORMAL</td> &lt ;/tr> <tr> <td>Bilirubin,Urine - Dipstick -MK</td&gt ; <td>NEGATIVE </td> <td>NEGATIVE</td> </tr> <tr> <td>Occult Blood,Urine-Dipstick- MK</td> <td>NEGATIVE </td> <td> NEGATIVE</td> </tr> <tr> <td> Urine Microscopic (UA-MK)</td> <td>Microscopic Not Ind. < /td> <td>NRG</td> </tr> <tr> <th colspan="10">M750.1005 - 11/12/17 12:33</th> </tr> <tr> <td>Urine Culture - AMS< /td> <td> Source: Urine Collected : 11/12/17 12:33 </td> <td>NRG</td> </tr& gt; <tr> <th colspan="10">L160.0135 - 17:33</th> </tr> <tr> <td>D -DIMER.</td> <td>200 NG/ML</td> <td>0- 230</td> </tr> <tr> <th colspan=& quot;10">L100.0050 - 11/12/17 17:33</th> </tr> <tr> <td>WBC - WHITE BLOOD COUNT</td> <td> 9.2 T/MM3</td> <td>4.5-11.0</td> </tr> <tr> <td>RED BLOOD COUNT</td> <td& gt;4.10 M/MM3</td> <td>4.00-5.20</td> </tr> <tr> <td>HGB - HEMOGLOBIN</td> <td >12.7 GM/DL</td> <td>12-16</td> </tr> <tr> <td>HCT - HEMATOCRIT</td> <td> 38.9 %</td> <td>36-46</td> </tr&gt ; <tr> <td>MEAN CORPUSCULAR VOLUME</td> &lt ;td>94.9 UM3</td> <td>80-100</td> </tr& gt; <tr> <td>MEAN CORPUSCULAR HGB</td> <td>31.0 UUG</td> <td>26-34</td> < /tr> <tr> <td>MEAN CORPUSCULAR HGB CONC(MCHC</ td> <td>32.6 GM/DL</td> <td>31-37</td& gt; </tr> <tr> <td>RDW STANDARD DEVIATION< /td> <td>53.8 FL</td> <td>36.9-50.2</ td> </tr> <tr> <td>PLT - PLATELET COUNT</td> <td>211 T/MM3</td> <td>130- 400</td> </tr> <tr> <td>MEAN PLATELET VOLUME</td> <td>9.9 UM3</td> <td >9.4-12.4</td> </tr> <tr> <th colspan="10">L100.0105 - 11/12/17 17:33</th> </tr& gt; <tr> <td>NEUTROPHILS % (MANUAL)</td& gt; <td>84.0 %</td> <td>33-66</td > </tr> <tr> <td>BAND NEUTROPHILS & amp;#37;</td> <td>2.0 %</td> <td& gt;0-6</td> </tr> <tr> <td> LYMPHOCYTES % (MANUAL)</td> <td>11.0 %</ td> <td>23-45</td></tr> <tr> <td>MONOCYTES % (MANUAL)</td> <td>1.0 & #37;</td> <td>0-9.0</td> </tr> & lt;tr> <td>MYELOCYTES %</td> <td> 2.0 %</td> <td>0-0</td> </tr> <tr> <td>PROLYMPHOCYTES %</td> & lt;td>7.7 T/MM3</td> <td>1.8-7.7</td> </ tr> <tr> <td>PLASMA CELLS %</td> <td>0.2 T/MM3</td> <td>NRG</td> </tr> <tr> <td>NEUTROPHILS # (MANUAL)</td&gt ; <td>0.1 T/MM3</td><td>0-0.8</td> </ tr> <tr> <td>MYELOCYTES #</td> &lt ;td>0.2 T/MM3</td> <td>NRG</td> </tr&gt ; <tr> <td>POIKILOCYTOSIS</td> <td&gt ;1+ </td> <td>NRG</td> </tr> <tr> <td>POLYCHROMASIA</td> <td>1+ </td> <td>NRG</td> </tr> <tr> <td& gt;ACANTHOCYTES</td> <td>1+ </td> <td> NRG</td> </tr> <tr> <td> Lymphocytes # (Manual)</td> <td>1.0 T/MM3</td> <td>1-4.8</td> </tr> <tr> &lt ;td>LRBCMOR</td> <td>Abnormal </td> <td >NRG</td> </tr> <tr> <th colspan= "10">L200.0020 - 11/12/17 17:33</th> </tr> <tr> <td>FUNGAL CULTURE.</td> <td> 1.2 mg/dL</td> <td>0.7-1.2</td> </tr> <tr> <td>FUNGAL CULTURE, BLOOD.</td> < td>26 RATIO</td> <td>6-26</td> </tr> <tr> <td>NA - Sodium</td> <td> 142 MEQ/L</td> <td>134-144</td> </tr> <tr> <td>Potassium</td> <td>4.9 MEQ/L</td> <td>3.6-5</td> </tr> < tr> <td>Chloride</td> <td>101 MEQ/L</ td> <td>98-107</td> </tr> <tr> <td>CO2 - Carbon Dioxide</td> <td>29 MEQ/L</td& gt; <td>22-30</td> </tr> <tr> <td>Anion Gap</td> <td>12 meq/L</td> <td>5-15</td> </tr> <tr> & lt;td>BUN- Blood Urea Nitrogen</td> <td>31.0 MG/DL</ td> <td>7-17</td> </tr> <tr> <td>Glomerular Filtration Rate</td> <td>44 & lt;/td> <td>NRG</td> </tr> <tr&gt ; <td>Glucose</td> <td>238 MG/DL</td> <td>65-110</td> </tr> <tr> <td>Osmolality,Calculated</td> <td>288 MOSM/KG& lt;/td> <td>261-280</td> </tr> < tr> <td>Calcium</td> <td>9.5 MG/DL</td > <td>8.4-10.2</td> </tr> <tr> <td>Bilirubin,Total</td> <td>0.50 MG/DL< /td> <td>0.20-1.30</td> </tr> <tr > <td>Alkaline Phosphatase</td> <td>55 U/ L</td> <td>38-126</td> </tr> < tr> <td>AST - Aspartate Amino Transfer</td> <td >24 U/L</td> <td>14-36</td> </tr> & lt;tr> <td>TP - Total Protein</td> <td> 7.4 g/dL</td> <td>6.3-8.2</td> </tr> <tr> <td>Albumin Level</td> <td> 4.0 g/dL</td> <td>3.5-5.0</td> </tr> <tr> <td>Globulin</td> <td>3.4 G/ DL</td> <td>2.4-3.6</td> </tr> &lt ;tr> <td>Albumin/Globulin Ratio</td> <td> 1.2 RATIO</td> <td>1.1-2.2</td> </tr> <tr> <td>LICTERUS</td> <td>& lt; 2 </td> <td>0-7</td> </tr> & lt;tr> <td>LHEMOLYSIS</td> <td>< 15 </ td> <td>0-25</td> </tr> <tr> <td>LTURBIDITY</td> <td>< 20 </td& gt;<td>0-20</td> </tr> <tr> < td>LALTV</td> <td>31 U/L</td> <td>1-35 </td> </tr> <tr> <th colspan=" 10">L300.3490 - 11/12/17 17:33</th> </tr> < tr> <td>Troponin I</td> <td>< 0.012 ng/ml</td> <td>0-0.12</td> </tr> <tr> <th colspan="10">L300.3700 - 17:33</th> </tr> <tr> <td>B- Type Natriuretic Peptide</td> <td>908 pg/mL</td> <td>0-175</td> </tr> <tr> < th colspan="10">L100.0050 - 11/13/17 17:02</th> </ tr> <tr> <td>WBC - WHITE BLOOD COUNT</td> <td>11.0 T/MM3</td> <td>4.5-11.0</td> </tr> <tr> <td>RED BLOOD COUNT</td& gt; <td>4.31 M/MM3</td> <td>4.00-5.20</td > </tr> <tr> <td>HGB - HEMOGLOBIN< /td> <td>13.2 GM/DL</td> <td>12-16</td > </tr> <tr> <td>HCT- HEMATOCRIT< /td> <td>40.9 %</td> <td>36-46&lt ;/td> </tr> <tr> <td>MEAN CORPUSCULAR VOLUME</td> <td>94.9 UM3</td> <td&gt ;80-100</td> </tr> <tr> <td>MEAN CORPUSCULAR HGB</td> <td>30.6 UUG</td> <td> 26-34</td> </tr> <tr> <td>MEAN CORPUSCULAR HGB CONC(MCHC</td> <td>32.3 GM/DL</td> <td>31-37</td> </tr> <tr> <td>RDW STANDARD DEVIATION</td> <td>55.5 FL</td> <td>36.9-50.2</td> </tr> <tr> <td>PLT - PLATELET COUNT</td> <td>184 T/MM3</ td> <td>130-400</td> </tr> <tr> <td>MEAN PLATELET VOLUME</td> <td>9.6 UM3< /td> <td>9.4-12.4</td> </tr> <tr&gt ; <td>NEUTROPHILS % (AUTO)</td> <td>82.8 & amp;#37;</td> <td>33-66</td> </tr> <tr> <td>LYMPHOCYTES % (AUTO)</td> <td>8.8 %</td> <td>23-45</td> </tr> <tr> <td>MONOCYTES % (AUTO)&lt ;/td> <td>7.4 %</td> <td>0-9.0&lt ;/td> </tr> <tr> <td>EOSINOPHILS & amp;#37; (AUTO)</td> <td>0.5 %</td> <td>0-4</td> </tr> <tr> <td&gt ;BASOPHILS % (AUTO)</td> <td>0.2 %</td& gt; <td>0-2</td> </tr> <tr> <td>IMMATURE GRANULOCYTE % (AUTO)</td> <td&gt ;0.3 %</td> <td>0.0-0.5</td> </tr& gt; <tr> <td>NEUTROPHILS # (AUTO)</td> <td>9.1 T/MM3</td> <td>1.8-7.7</td> & lt;/tr> <tr> <td>LYMPHOCYTES # (AUTO)</td> <td>1.0 T/MM3</td> <td>1-4.8</td> </tr><tr> <td>MONOCYTES # (AUTO)</td> <td>0.8 T/MM3</td> <td>0-0.8</td> < /tr> <tr> <td>EOSINOPHILS # (AUTO)</td> <td>0.1 T/MM3</td> <td>0-0.5</td> &lt ;/tr> <tr> <td>BASOPHILS # (AUTO)</td> <td>0.0 T/MM3</td> <td>0-0.2</td> </tr> <tr> <td>IMMATURE GRANULOCYTE # (AUTO)</td& gt; <td>0.03 T/MM3</td> <td>0.00-0.03</td> </tr> <tr> <th colspan="10"> L200.0020 - 11/13/17 17:02</th> </tr> <tr> <td>FUNGAL CULTURE.</td> <td>1.1 mg/dL</td&gt ; <td>0.7-1.2</td> </tr> <tr> <td>FUNGAL CULTURE, BLOOD.</td> <td>28 RATIO</ td> <td>6-26</td> </tr> <tr> <td>NA - Sodium</td> <td>142 MEQ/L</td&gt ; <td>134-144</td> </tr> <tr> <td>Potassium</td> <td>4.4 MEQ/L</td> <td>3.6-5</td> </tr> <tr> &lt ;td>Chloride</td> <td>100 MEQ/L</td> <td>98 -107</td> </tr> <tr> <td>CO2 - Carbon Dioxide</td> <td>28 MEQ/L</td> <td >22-30</td> </tr> <tr> <td> Anion Gap</td> <td>14 meq/L</td> <td>5 -15</td> </tr> <tr> <td>BUN- Blood Urea Nitrogen</td> <td>31.0 MG/DL</td> <td>7-17</td> </tr> <tr> <td >Glomerular Filtration Rate</td> <td>49 </td> <td>NRG</td> </tr> <tr> &lt ;td>Glucose</td> <td>191 MG/DL</td> < td>65-110</td> </tr> <tr> <td> Osmolality,Calculated</td> <td>285 MOSM/KG</td> <td>261-280</td> </tr> <tr> <td>Calcium</td> <td>9.1 MG/DL</td> &lt ;td>8.4-10.2</td> </tr> <tr> <td& gt;Bilirubin,Total</td> <td>0.80 MG/DL</td> <td>0.20-1.30</td> </tr> <tr> &lt ;td>Alkaline Phosphatase</td> <td>61 U/L</td> <td>38-126</td> </tr> <tr> &lt ;td>AST - Aspartate Amino Transfer</td> <td>26 U/L</ td> <td>14-36</td> </tr> <tr> <td>TP - Total Protein</td> <td>7.9 g/dL</td& gt; <td>6.3-8.2</td> </tr> <tr> <td>Albumin Level</td> <td>4.3 g/dL</td& gt; <td>3.5-5.0</td> </tr> <tr> <td>Globulin</td> <td>3.6 G/DL</td> <td>2.4-3.6</td> </tr> <tr> <td>Albumin/Globulin Ratio</td> <td>1.2 RATIO</ td> <td>1.1-2.2</td> </tr> <tr&gt ; <td>LICTERUS</td> <td>< 2 </td& gt; <td>0-7</td> </tr> <tr> <td>LHEMOLYSIS</td> <td>< 15 </td> <td>0-25</td> </tr> <tr> < td>LTURBIDITY</td> <td>< 20 </td><td> 0-20</td> </tr> <tr> <td>LALTV&lt ;/td> <td>31 U/L</td> <td>1-35</td> </tr> <tr> <th colspan="10"> M110.018 - 11/13/17 19:09</th> </tr> <tr> <td>ANTI-D</td> <td>Culture Initiated - Results Pending </td> <td>NRG</td> </tr> <tr> <th colspan="10">L200.2066 - 11/13/17 19:49</th > </tr><tr> <td>Lactate</td> <td>2.2 MMOL/L</td> <td>0.6-2.2</td> & lt;/tr> <tr> <th colspan="10"> L200.49 - 11/13/17 20:27</th> </tr> <tr> <td>POTASSIUM</td> <td>Urine, Void-CC/notCC < /td> <td>NRG</td> </tr> <tr> <td>CHLORIDE</td> <td>YELLOW </td> <td>YELLOW</td> </tr> <tr> <td>ANION GAP</td> <td>CLOUDY </td> <td>NRG</td> </tr> <tr> <td&gt ;BLOOD UREA NITROGEN</td> <td>5.5 </td> < td>5.0-8.0</td> </tr> <tr> <td>BUN/ CREATININE RATIO</td> <td>1+ </td> <td&gt ;NEGATIVE</td> </tr> <tr> <td> GLUCOSE</td> <td>NEGATIVE </td> <td>NEGATIVE& lt;/td> </tr> <tr> <td>CALCIUM</ td> <td>NEGATIVE </td> <td>NEGATIVE</ td> </tr> <tr> <td>BILIRUBIN, CONJUG &amp; UNCONJUG</td> <td>NEGATIVE </td&gt ; <td>NEGATIVE</td> </tr> <tr> <td>TOTAL PROTEIN</td> <td>20-30 /HPF</td& gt; <td>0-3</td> </tr> <tr> <td>ALBUMIN</td> <td>50-200 /HPF</td> <td>0-5</td> </tr> <tr> < td>ALBUMIN/GLOBULIN RATIO</td> <td>10-20 </td> <td>NRG</td> </tr> <tr> & lt;td>CKMB</td> <td>4+ </td> <td> NEGATIVE</td> </tr> <tr> <td> GENTAMICIN,RANDOM</td> <td>Cult reflexed &setup < /td> <td>NRG</td></tr> <tr> <td>Specific [place],Urine</td> <td>1.025 </td&gt ; <td>1.015-1.025</td> </tr> <tr&gt ; <td>Leukocyte Esterase,Urine</td> <td>3+ </ td> <td>NEGATIVE</td> </tr> <tr& gt; <td>Nitrate,Urine</td> <td>POSITIVE < /td> <td>NEGATIVE</td> </tr> <tr& gt; <td>Urobilinogen,Urine</td> <td>0.2 EU/ DL</td> <td>NORMAL</td> </tr> &lt ;tr> <td>Occult Blood,Urine - Dipstick</td> &lt ;td>3+ </td> <td>NEGATIVE</td> </tr> <tr> <th colspan="10">M120.0100- 20:27</th> </tr> <tr> <td> Urine Culture</td> <td>Culture Initiated - Results Pending </td> <td>NRG</td> </tr> </tbody > </table> </text> <entry> <organizer moodCode=& quot;EVN" classCode="BATTERY"> <templateId root=" [id number]" /> <id nullFlavor="NA&quot ; /> <codecodeSystem="local" code="LCBC" displayName="L100.0050" /> <statusCode code="completed " /> <component> <observation moodCode="EVN& quot; classCode="OBS"> <templateId root=" [id number]" /> <id nullFlavor="NA& quot; /> <code codeSystem="local" code="100.0150& quot; displayName="WBC - WHITE BLOOD COUNT" /> <statusCode code ="completed" /> <effectiveTime value="[id number] " /> <value unit="T/MM3" xsi:type="PQ" value="6.7"/> <interpretationCode codeSystem=" local" code="N" /><referenceRange> < observationRange> <text>4.5-11.0</text> & lt;/observationRange> </referenceRange> </ observation> </component> <component> < observation moodCode="EVN" classCode="OBS"> < templateId root="[id number]" /> < id nullFlavor="NA" /> <code codeSystem="local&quot ; code="100.0250" displayName="RED BLOOD COUNT" /> <statusCode code="completed" /> <effectiveTime value="[id number]" /> <value unit="M/MM3" xsi:type="PQ" value="4.29" /> < interpretationCode codeSystem="local" code="N" /> <referenceRange> <observationRange> < text>4.00-5.20</text> </observationRange> &lt ;/referenceRange> </observation> </component> & lt;component> <observation moodCode="EVN" classCode=&quot ;OBS"> <templateId root="[id number].2 " /> <id nullFlavor="NA" /> <code codeSystem="local" code="100.0300"displayName="HGB - HEMOGLOBIN" /> <statusCode code="completed" /> <effectiveTime value="[id number]" /> < value unit="GM/DL" xsi:type="PQ" value="12.0" /&gt ; <interpretationCode codeSystem="local" code="N&quot ; /> <referenceRange> <observationRange> <text>12-16</text> </observationRange> & lt;/referenceRange> </observation> </component> <component> <observation moodCode="EVN" classCode=&quot ;OBS"> <templateId root="[id number].2 " /> <id nullFlavor="NA" /> <code codeSystem="local" code="100.0400" displayName="HCT - HEMATOCRIT" /> <statusCode code="completed" /> <effectiveTime value="[id number]" /> < value unit="%" xsi:type="PQ" value="37.7" /> <interpretationCode codeSystem="local" code="N& quot; /> <referenceRange> <observationRange> <text>36-46</text> </observationRange> </referenceRange> </observation> </component> <component> <observation moodCode="EVN" classCode= "OBS"> <templateId root=" [id number].2" /> <id nullFlavor="NA& quot; /> <code codeSystem="local" code="100.0550& quot; displayName="MEAN CORPUSCULAR VOLUME"/> < statusCode code="completed" /> <effectiveTime value=& quot;[id number]" /> <value unit="UM3" xsi:type=& quot;PQ" value="87.9" /> <interpretationCode codeSystem="local" code="N" /> < referenceRange> <observationRange> <text> 80-100</text> </observationRange> </ referenceRange> </observation> </component> < component> <observation moodCode="EVN" classCode=" OBS"> <templateId root="2.16.840.1.229128.10.20.22.4.2& quot; /> <id nullFlavor="NA" /> <code codeSystem="local" code="100.0600" displayName="MEAN CORPUSCULAR HGB" /> <statusCode code="completed" / > <effectiveTime value="[id number]" /> & lt;value unit="UUG" xsi:type="PQ" value="28.0" /& gt; <interpretationCode codeSystem="local" code="N" /& gt; <referenceRange> <observationRange> <text>26-34</text> </observationRange> </ referenceRange> </observation> </component> < component> <observation moodCode="EVN" classCode=" OBS"> <templateId root="2.16.840.1.488343.10.20.22.4.2& quot; /> <id nullFlavor="NA" /> <code codeSystem="local" code="100.0650" displayName="MEAN CORPUSCULAR HGB CONC([facility]" /> <statusCode code=" completed" /> <effectiveTime value="[id number]" /> <value unit="GM/DL" xsi:type="PQ" value=& quot;31.8" /> <interpretationCode codeSystem="local& quot; code="N" /> <referenceRange> < observationRange> <text>31-37</text> < /observationRange> </referenceRange> </observation& gt; </component> <component> <observation moodCode="EVN" classCode="OBS"> <templateId root="2.16.840.1.299157.10.20.22.4.2" /> <id nullFlavor ="NA" /> <code codeSystem="local" code=" 100.0750" displayName="RDW STANDARD DEVIATION" /> &lt ;statusCode code="completed"/> <effectiveTime value=& quot;845305348391" /> <value unit="FL" xsi:type=& quot;PQ" value="49.7" /> <interpretationCode codeSystem="local" code="N" /> < referenceRange> <observationRange> <text> 36.9-50.2</text> </observationRange> </ referenceRange> </observation> </component> < component> <observation moodCode="EVN" classCode=" OBS"> <templateId root="2.16.840.1.757189.10.20.22.4.2& quot; /> <id nullFlavor="NA"/> <code codeSystem="local" code="100.0850" displayName="PLT- PLATELET COUNT" /> <statusCode code="completed" /& gt; <effectiveTime value="668216339961" /> &lt ;value unit="T/MM3" xsi:type="PQ" value="220" /&gt ; <interpretationCode codeSystem="local" code="N&quot ; /> <referenceRange> <observationRange> <text>130-400</text> </observationRange> </referenceRange> </observation> </component> <component> <observation moodCode="EVN" classCode ="OBS"> <templateId root=" 2.16.840.1.405548.10.20.22.4.2" /> <id nullFlavor="NA& quot; /> <code codeSystem="local" code="100.0950& quot; displayName="MEAN PLATELET VOLUME" /> < statusCode code="completed" /> <effectiveTime value=& quot;729358372184" /> <value unit="UM3" xsi:type=& quot;PQ" value="10.2" /> <interpretationCode codeSystem="local" code="N" /> < referenceRange> <observationRange> <text> 9.4-12.4</text> </observationRange> </ referenceRange> </observation> </component> < component> <observation moodCode="EVN" classCode=" OBS"> <templateId root="2.16.840.1.252452.10.20.22.4.2& quot; /> <id nullFlavor="NA" /> <code codeSystem="local" code="100.1050" displayName=" NEUTROPHILS % (AUTO)" /> <statusCode code="completed& quot; /> <effectiveTime value="080976249858" /> <value unit="%" xsi:type="PQ" value=" 72.4" /> <interpretationCode codeSystem="local" code="H" /> <referenceRange> < observationRange> <text>33-66</text> < /observationRange> </referenceRange> </observation& gt; </component> <component> <observation moodCode="EVN"classCode="OBS"> <templateId root="2.16.840.1.742308.10.20.22.4.2" /> <id nullFlavor ="NA" /> <code codeSystem="local" code=" 100.1100" displayName="LYMPHOCYTES % (AUTO)" /> <statusCode code="completed" /> <effectiveTime value="002639169026" /> <value unit="%& quot; xsi:type="PQ" value="17.1" /> < interpretationCode codeSystem="local" code="L" /> <referenceRange> <observationRange> < text>23-45</text> </observationRange> </ referenceRange> </observation> </component> < component> <observation moodCode="EVN" classCode=" OBS"> <templateId root="2.16.840.1.624084.10.20.22.4.2& quot; /> <id nullFlavor="NA" /> <code codeSystem="local" code="100.1150" displayName=" MONOCYTES % (AUTO)" /> <statusCode code=" completed" /> <effectiveTime value="069799861282" /> <value unit="%" xsi:type="PQ" value=" 7.1" /> <interpretationCode codeSystem="local" code="N" /> <referenceRange> < observationRange> <text>0-9.0</text> < /observationRange> </referenceRange> </observation& gt; </component> <component> <observation moodCode="EVN" classCode="OBS"> <templateId root="2.16.840.1.743349.10.20.22.4.2" /> <idnullFlavor= "NA" /> <code codeSystem="local" code=" 100.1200" displayName="EOSINOPHILS % (AUTO)" /> <statusCode code="completed" /> <effectiveTime value="675657441237" /> <value unit="%& quot; xsi:type="PQ" value="2.6" /> < interpretationCode codeSystem="local" code="N" /> <referenceRange> <observationRange> <text& gt;0-4</text> </observationRange> </ referenceRange> </observation> </component> < component> <observation moodCode="EVN" classCode=" OBS"> <templateId root="2.16.840.1.915028.10..22.4.2" / > <id nullFlavor="NA" /> <code codeSystem="local" code="100.1250" displayName=" BASOPHILS % (AUTO)" /> <statusCode code=" completed" /> <effectiveTime value="913947081702" /> <value unit="%" xsi:type="PQ" value="0.3" /> <interpretationCode codeSystem=" local" code="N" /> <referenceRange> <observationRange> <text>0-2</text> & lt;/observationRange> </referenceRange> </observation> </component> <component> <observation moodCode= "EVN" classCode="OBS"> <templateId root=&quot ;2.16.840.1.175116.10.20.22.4.2" /> <id nullFlavor="NA& quot; /> <code codeSystem="local" code="100.1275& quot; displayName="IMMATURE GRANULOCYTE % (AUTO)" /> <statusCode code="completed" /> <effectiveTime value="105516104467" /> <value unit="%& quot; xsi:type="PQ" value="0.5" /> < interpretationCode codeSystem="local" code="N" /> <referenceRange> <observationRange> < text>0.0-0.5</text> </observationRange> </ referenceRange> </observation> </component> < component> <observation moodCode="EVN" classCode=" OBS"> <templateId root="2.16.840.1.666332.10.20.22.4.2& quot; /> <id nullFlavor="NA" /> <code codeSystem="local" code="100.1300" displayName=" NEUTROPHILS # (AUTO)" /> <statusCode code="completed& quot; /> <effectiveTime value="208729352044" /> <value unit="T/MM3" xsi:type="PQ" value="4.8& quot; /> <interpretationCode codeSystem="local"code=& quot;N" /> <referenceRange> < observationRange> <text>1.8-7.7</text> </ observationRange> </referenceRange> </observation&gt ; </component> <component> <observation moodCode ="EVN" classCode="OBS"> <templateId root=& quot;2.16.840.1.910526.10.20.22.4.2" /> <id nullFlavor=&quot ;NA" /> <code codeSystem="local" code=" 100.1350" displayName="LYMPHOCYTES # (AUTO)"/> < statusCode code="completed" /> <effectiveTime value=& quot;122976329601" /> <value unit="T/MM3" xsi:type ="PQ" value="1.1" /> <interpretationCode codeSystem="local" code="N" /> < referenceRange> <observationRange> <text> 1-4.8</text> </observationRange> </ referenceRange> </observation> </component> < component> <observation moodCode="EVN" classCode=" OBS"> <templateId root="2.16.840.1.538914.10.20.22.4.2& quot; /> <id nullFlavor="NA" /> <code codeSystem="local" code="100.1400" displayName=" MONOCYTES # (AUTO)" /> <statusCode code="completed&quot ; /> <effectiveTime value="172779659248" /> <value unit="T/MM3" xsi:type="PQ" value="0.5&quot ; /> <interpretationCode codeSystem="local" code="N&quot ; /> <referenceRange> <observationRange> <text>0-0.8</text> </observationRange> < /referenceRange> </observation> </component> &lt ;component> <observation moodCode="EVN" classCode=" OBS"> <templateId root="2.16.840.1.681380.10.20.22.4.2& quot; /> <id nullFlavor="NA" /> <code codeSystem="local" code="100.1450" displayName=" EOSINOPHILS # (AUTO)" /> <statusCode code="completed& quot; /> <effectiveTime value="346672442536" /> <value unit="T/MM3" xsi:type="PQ" value="0.2& quot; /> <interpretationCode codeSystem="local" code=& quot;N" /> <referenceRange> < observationRange> <text>0-0.5</text> < /observationRange> </referenceRange> </observation& gt; </component> <component> <observation moodCode="EVN" classCode="OBS"> <templateId root="2.16.840.1.594009.10.20.22.4.2" /> <id nullFlavor ="NA" /> <code codeSystem="local" code=" 100.1500" displayName="BASOPHILS # (AUTO)" /> < statusCode code="completed" /> <effectiveTime value=& quot;366661214200" /> <value unit="T/MM3" xsi:type ="PQ" value="0.0" /> <interpretationCode codeSystem="local" code="N" /> < referenceRange> <observationRange> <text>0- 0.2</text> </observationRange> </ referenceRange> </observation> </component> < component> <observation moodCode="EVN" classCode=" OBS"> <templateId root="2.16.840.1.655172.10.20.22.4.2& quot; /> <id nullFlavor="NA" /> <code codeSystem="local" code="100.1525" displayName=" IMMATURE GRANULOCYTE # (AUTO)" /> <statusCode code=" completed" /> <effectiveTime value="049198036394" /> <value unit="T/MM3" xsi:type="PQ" value=& quot;0.03" /> <interpretationCode codeSystem="local& quot; code="N" /> <referenceRange> < observationRange> <text>0.00-0.03</text> </observationRange> </referenceRange> </ observation> </component> </organizer> </entry> & lt;entry> <organizer moodCode="EVN" classCode="BATTERY& quot;> <templateId root="2.16.840.1.500121.10.20.22.4.1" /& gt; <id nullFlavor="NA" /> <code codeSystem=" local" code="LCMP" displayName="L200.0020" /> & lt;statusCode code="completed" /> <component> &lt ;observation moodCode="EVN" classCode="OBS"> &lt ;templateId root="2.16.840.1.327057.10..22.4.2" /> < id nullFlavor="NA" /> <code codeSystem="local&quot ; code="200.0097" displayName="ICTERUS" /> < statusCode code="completed" /> <effectiveTime value=& quot;634322230022" /> <value unit="" xsi:type=& quot;PQ" value="< 2" /> < interpretationCode codeSystem="local" code="N" /> <referenceRange> <observationRange> < text>0-7</text> </observationRange> </ referenceRange> </observation> </component> < component> <observation moodCode="EVN" classCode=" OBS"> <templateId root="2.16.840.1.706747.10.20.22.4.2& quot; /> <id nullFlavor="NA" /> <code codeSystem="local" code="200.0098" displayName=" HEMOLYSIS" /> <statusCode code="completed" /> <effectiveTime value="463787792612" /> < value unit="" xsi:type="PQ" value="< 15" /& gt; <interpretationCode codeSystem="local" code="N& quot; /> <referenceRange><observationRange> <text>0-25</text> </observationRange> & lt;/referenceRange> </observation> </component> & lt;/organizer> </entry> <entry> <organizer moodCode=&quot ;EVN" classCode="BATTERY"> <templateId root=" 2.16.840.1.173713.10.20.22.4.1" /> <id nullFlavor="NA&quot ; /> <code codeSystem="local" code="LLIP" displayName="L200.1950" /> <statusCode code="completed " /> <component> <observation moodCode="EVN& quot; classCode="OBS"> <templateId root=" 2.16.840.1.318904.10.20.22.4.2" /> <id nullFlavor="NA& quot; /> <code codeSystem="local" code="200.1950& quot; displayName="LIPASE" /> <statusCode code=" completed" /> <effectiveTime value="182097001849" /> <value unit="U/L" xsi:type="PQ" value=& quot;120" /> <interpretationCode codeSystem="local&quot ; code="N" /> <referenceRange> < observationRange> <text>23-300</text> &lt ;/observationRange> </referenceRange> </observation& gt; </component> </organizer> </entry> <entry&gt ; <organizer moodCode="EVN" classCode="BATTERY"> <templateId root="2.16.840.1.805320.10.20.22.4.1" /> & lt;id nullFlavor="NA" /> <code codeSystem="local" code ="LBGM" displayName="L900.0530" /> <statusCode code="completed" /> <component> <observation moodCode="EVN" classCode="OBS"> <templateId root="2.16.840.1.362249.10.20.22.4.2" /> <id nullFlavor ="NA" /> <code codeSystem="local" code=" 900.0530" displayName="GLUCOMETER" /> <statusCode code="completed" /> <effectiveTime value=" 697771430007" /> <value unit="mg/dL" xsi:type=& quot;PQ" value="188" /> <interpretationCode codeSystem="local" code="H" /> < referenceRange> <observationRange> <text> 65-110</text> </observationRange> </ referenceRange> </observation> </component> </ organizer> </entry> <entry> <organizer moodCode="EVN " classCode="BATTERY"> <templateId root=" 2.16.840.1.288983.10.20.22.4.1" /> <id nullFlavor="NA&quot ; /> <code codeSystem="local" code="LUADMNC" displayName="L600.0180" /> <statusCode code="completed " /> <component> <observation moodCode="EVN& quot; classCode="OBS"> <templateId root=" 2.16.840.1.396564.10.20.22.4.2" /> <id nullFlavor="NA& quot; /> <code codeSystem="local" code="600.0500& quot; displayName="SPECIMEN TYPE, URINE" /> < statusCode code="completed" /> <effectiveTime value=& quot;923691582418" /> <value unit="" xsi:type="PQ&quot ; value="VOIDED-NOT CC-MIDSTR" /> <interpretationCode codeSystem="local" code="N" /> < referenceRange> <observationRange> <text /& gt; </observationRange> </referenceRange> </observation> </component> <component> < observation moodCode="EVN" classCode="OBS"> < templateId root="2.16.840.1.322566.10.20.22.4.2" /> < id nullFlavor="NA" /> <code codeSystem="local&quot ; code="600.0550" displayName="COLOR,URINE" /> & lt;statusCode code="completed" /> <effectiveTime value=" 347284067790" /> <value unit="" xsi:type="PQ& quot; value="YELLOW" /> <interpretationCode codeSystem= "local" code="N" /> <referenceRange> <observationRange> <text>YELLOW</text> </observationRange> </referenceRange> </ observation> </component> <component> < observation moodCode="EVN" classCode="OBS"> < templateId root="2.16.840.1.015089.10.20.22.4.2" /> < id nullFlavor="NA" /> <code codeSystem="local&quot ; code="600.0600" displayName="TURBIDITY, URINE" /> <statusCode code="completed" /> <effectiveTime value="906476883903" /> <value unit="" xsi: type="PQ" value="SL CLOUDY" /> < interpretationCode codeSystem="local" code="N" /> <referenceRange> <observationRange> < text>CLEAR</text> </observationRange> </ referenceRange> </observation> </component> < component> <observation moodCode="EVN" classCode=" OBS"> <templateId root="2.16.840.1.391468.10..22.4.2& quot; /> <id nullFlavor="NA" /> <code codeSystem="local" code="600.0650" displayName=" SPECIFIC GRAVITY,URINE" /> <statusCode code="completed& quot; /> <effectiveTime value="069248385162" /> <value unit="" xsi:type="PQ" value="1.020&quot ; /> <interpretationCode codeSystem="local" code="N& quot; /> <referenceRange> <observationRange> <text>1.015-1.025</text> </ observationRange> </referenceRange> </observation&gt ; </component> <component> <observation moodCode=& quot;EVN" classCode="OBS"> <templateId root=" 2.16.840.1.462405.10.20.22.4.2" /> <id nullFlavor="NA& quot; /> <code codeSystem="local" code="600.0700& quot; displayName="PH, URINE - DIPSTICK" /> < statusCode code="completed" /> <effectiveTime value=& quot;415772028967" /> <value unit="" xsi:type=& quot;PQ" value="6.0" /> <interpretationCode codeSystem="local" code="N" /> < referenceRange> <observationRange> <text>5.0-8.0 </text> </observationRange> </referenceRange& gt; </observation> </component> <component> <observation moodCode="EVN" classCode="OBS"> &lt ;templateId root="2.16.840.1.171810.10.20.22.4.2" /> < id nullFlavor="NA" /> <code codeSystem="local&quot ; code="600.0750" displayName="LEUKOCYTE ESTERASE ,URINE" /& gt; <statusCode code="completed" /> < effectiveTime value="738482115473" /> <value unit=&quot ;" xsi:type="PQ" value="TRACE" /> < interpretationCode codeSystem="local" code="Aa" /> <referenceRange> <observationRange> < text>NEGATIVE</text> </observationRange> </ referenceRange> </observation> </component> < component> <observation moodCode="EVN" classCode=" OBS"> <templateId root="2.16.840.1.715502.10.20.22.4.2& quot; /> <id nullFlavor="NA" /> <code codeSystem="local" code="600.0800" displayName="NITRITE ,URINE" /> <statusCode code="completed" /> <effectiveTime value="021851324370" /> <value unit="" xsi:type="PQ"value="POSITIVE" /> <interpretationCode codeSystem="local" code="Aa" /&gt ; <referenceRange> <observationRange> <text>NEGATIVE</text> </observationRange> </referenceRange> </observation> </component&gt ; <component> <observation moodCode="EVN" classCode="OBS"> <templateId root=" 2.16.840.1.013428.10.20.22.4.2" /> <id nullFlavor="NA& quot; /> <code codeSystem="local" code="600.0850& quot; displayName="PROTEIN,URINE - DIPSTICK" /> < statusCode code="completed" /> <effectiveTime value=& quot;773770573119" /> <value unit="" xsi:type=& quot;PQ" value="NEGATIVE" /> <interpretationCode codeSystem="local" code="N" /> < referenceRange> <observationRange> <text> NEGATIVE</text> </observationRange> </ referenceRange> </observation> </component> < component> <observation moodCode="EVN" classCode=" OBS"> <templateId root="2.16.840.1.150871.10.20.22.4.2& quot; /> <id nullFlavor="NA" /> <code codeSystem="local" code="600.0900" displayName="GLUCOSE , URINE - DIPSTICK" /> <statusCode code="completed&quot ; /> <effectiveTime value="084753148226" /> <value unit="" xsi:type="PQ" value="NEGATIVE&quot ; /> <interpretationCode codeSystem="local" code=" N" /> <referenceRange> <observationRange&gt ; <text>NEGATIVE</text> </ observationRange> </referenceRange> </observation&gt ; </component> <component> <observation moodCode=& quot;EVN" classCode="OBS"> <templateId root=" 2.16.840.1.499412.10.20.22.4.2" /> <id nullFlavor="NA& quot; /> <code codeSystem="local" code="600.0950& quot; displayName="KETONES,URINE - DIPSTICK" /> < statusCode code="completed" /> <effectiveTime value=& quot;093199522129" /> <value unit="" xsi:type="PQ& quot; value="NEGATIVE" /> <interpretationCode codeSystem="local" code="N" /> < referenceRange> <observationRange> <text> NEGATIVE</text> </observationRange> </ referenceRange> </observation> </component> < component> <observation moodCode="EVN" classCode=" OBS"> <templateId root="2.16.840.1.494381.10.20.22.4.2& quot; /> <idnullFlavor="NA" /> <code codeSystem="local" code="600.1000" displayName=" UROBILINOGEN,URINE" /> <statusCode code="completed&quot ; /> <effectiveTime value="256586072278" /> <value unit="EU/DL" xsi:type="PQ" value="0.2&quot ; /> <interpretationCode codeSystem="local" code=" N" /> <referenceRange> <observationRange&gt ; <text>NORMAL</text> </observationRange& gt; </referenceRange> </observation> </ component> <component> <observation moodCode="EVN& quot; classCode="OBS"> <templateId root=" 2.16.840.1.855400.10.20.22.4.2" /> <id nullFlavor="NA& quot; /> <code codeSystem="local" code="600.1050& quot; displayName="BILIRUBIN,URINE - DIPSTICK" /> < statusCode code="completed" /> <effectiveTime value=" 842299173613" /> <value unit="" xsi:type="PQ& quot; value="NEGATIVE" /> <interpretationCode codeSystem="local" code="N" /> < referenceRange> <observationRange> <text> NEGATIVE</text> </observationRange> </ referenceRange> </observation> </component> < component> <observation moodCode="EVN" classCode=" OBS"> <templateId root="2.16.840.1.910593.10.20.22.4.2& quot; /> <id nullFlavor="NA" /> <code codeSystem="local" code="600.1100" displayName="BLOOD, URINE" /> <statusCode code="completed" /> <effectiveTime value="272252436763" /> <value unit="" xsi:type="PQ" value="TRACE-INTACT" /> <interpretationCode codeSystem="local" code="Aa&quot ; /> <referenceRange> <observationRange> <text>NEGATIVE</text> </observationRange&gt ; </referenceRange> </observation> </component&gt ; </organizer> </entry> <entry> <organizer moodCode=& quot;EVN" classCode="BATTERY"> <templateId root=" 2.16.840.1.574679.10.20.22.4.1" /> <id nullFlavor="NA&quot ; /> <code codeSystem="local" code="LUADMRC" displayName="L600.0175" /> <statusCode code="completed& quot; /> <component> <observation moodCode="EVN& quot; classCode="OBS"> <templateId root=" 2.16.840.1.983608.10.20.22.4.2" /> <id nullFlavor="NA& quot; /> <code codeSystem="local" code="600.0500& quot; displayName="SPECIMEN TYPE, URINE" /> <statusCode code="completed" /> <effectiveTime value=" 700466141070" /> <value unit="" xsi:type="PQ& quot; value="VOIDED-NOT CC-MIDSTR" /> < interpretationCode codeSystem="local" code="N" /> <referenceRange> <observationRange> < text /> </observationRange> </referenceRange&gt ; </observation> </component> <component> <observation moodCode="EVN" classCode="OBS"> <templateId root="2.16.840.1.304708.10.20.22.4.2" /> <id nullFlavor="NA" /> <code codeSystem=" local" code="600.0550" displayName="COLOR,URINE" /> <statusCode code="completed" /> < effectiveTime value="215530672956" /> <value unit=&quot ;" xsi:type="PQ" value="YELLOW" /> < interpretationCode codeSystem="local" code="N" /> <referenceRange> <observationRange> <text> YELLOW</text> </observationRange> </ referenceRange> </observation> </component> < component> <observation moodCode="EVN" classCode=" OBS"><templateId root="2.16.840.1.365776.10.20.22.4.2" /&gt ; <id nullFlavor="NA" /> <code codeSystem=& quot;local" code="600.0600" displayName="TURBIDITY, URINE& quot; /> <statusCode code="completed" />< effectiveTime value="380969354249" /> <value unit=&quot ;" xsi:type="PQ" value="SL CLOUDY" /> < interpretationCode codeSystem="local" code="N" /> <referenceRange> <observationRange> < text>CLEAR</text> </observationRange> </ referenceRange> </observation> </component> < component> <observation moodCode="EVN" classCode=" OBS"> <templateId root="2.16.840.1.222928.10.20.22.4.2& quot; /> <id nullFlavor="NA" /> <code codeSystem="local" code="600.0650" displayName=" SPECIFIC GRAVITY,URINE" /> <statusCode code="completed& quot; /> <effectiveTime value="722599741370" /> <value unit="" xsi:type="PQ" value="1.020&quot ; /> <interpretationCode codeSystem="local" code=" N" /> <referenceRange> <observationRange&gt ; <text>1.015-1.025</text> </ observationRange> </referenceRange> </observation> </component> <component> <observation moodCode=& quot;EVN" classCode="OBS"> <templateId root=" 2.16.840.1.141679.10.20.22.4.2" /> <id nullFlavor="NA& quot; /> <code codeSystem="local" code="600.0700& quot; displayName="PH, URINE - DIPSTICK" /> <statusCode code= "completed" /> <effectiveTime value="804038353526& quot; /> <value unit="" xsi:type="PQ" value=& quot;6.0" /> <interpretationCode codeSystem="local&quot ; code="N" /> <referenceRange> < observationRange> <text>5.0-8.0</text> & lt;/observationRange> </referenceRange> </ observation> </component> <component> < observation moodCode="EVN" classCode="OBS"> < templateId root="2.16.840.1.415578.10.20.22.4.2" /> <id nullFlavor="NA" /> <code codeSystem="local" code="600.0750" displayName="LEUKOCYTE ESTERASE ,URINE" /&gt ; <statusCode code="completed" /> < effectiveTime value="186026888635" /> <value unit="&quot ; xsi:type="PQ" value="TRACE" /> < interpretationCode codeSystem="local" code="Aa" /> <referenceRange> <observationRange> < text>NEGATIVE</text> </observationRange> < /referenceRange> </observation> </component> &lt ;component> <observation moodCode="EVN" classCode=" OBS"> <templateId root="2.16.840.1.001222.10.20.22.4.2& quot; /> <id nullFlavor="NA" /> <code codeSystem="local" code="600.0800" displayName="NITRITE ,URINE" /> <statusCode code="completed" /> <effectiveTime value="318189333234" /> <value unit="" xsi:type="PQ" value="POSITIVE" /> <interpretationCode codeSystem="local" code="Aa" /& gt; <referenceRange> <observationRange> <text>NEGATIVE</text> </observationRange> </referenceRange> </observation> </component> <component> <observation moodCode="EVN" classCode=& quot;OBS"> <templateId root=" 2.16.840.1.379722.10.20.22.4.2" /> <id nullFlavor="NA& quot; /> <code codeSystem="local" code="600.0850& quot; displayName="PROTEIN,URINE - DIPSTICK" /> < statusCode code="completed" /> <effectiveTime value=& quot;960199172725" /> <value unit="" xsi:type=& quot;PQ" value="NEGATIVE" /> <interpretationCode codeSystem="local" code="N" /> < referenceRange> <observationRange> <text> NEGATIVE</text> </observationRange> </ referenceRange> </observation> </component> < component> <observation moodCode="EVN" classCode=" OBS"> <templateId root="2.16.840.1.104728.10.20.22.4.2& quot; /> <id nullFlavor="NA" /> <code codeSystem="local" code="600.0900" displayName="GLUCOSE , URINE - DIPSTICK" /> <statusCode code="completed&quot ; /> <effectiveTime value="071491112087" /> <value unit="" xsi:type="PQ" value="NEGATIVE&quot ; /> <interpretationCode codeSystem="local" code=" N" /> <referenceRange> <observationRange&gt ; <text>NEGATIVE</text> </ observationRange> </referenceRange> </observation> </component> <component> <observation moodCode=& quot;EVN" classCode="OBS"> <templateId root=" 2.16.840.1.596683.10.20.22.4.2" /> <id nullFlavor="NA& quot; /> <code codeSystem="local" code="600.0950& quot; displayName="KETONES,URINE - DIPSTICK" /> < statusCode code="completed" /> <effectiveTime value=& quot;551711692033" /> <value unit="" xsi:type=& quot;PQ" value="NEGATIVE" /> <interpretationCode codeSystem="local" code="N" /> <referenceRange& gt; <observationRange> <text>NEGATIVE</ text> </observationRange> </referenceRange> </observation> </component> <component> <observation moodCode="EVN" classCode="OBS"> <templateId root="2.16.840.1.536839.10.20.22.4.2" /> <id nullFlavor="NA" /> <code codeSystem=" local" code="600.1000" displayName="UROBILINOGEN,URINE&quot ; /> <statusCode code="completed" /> < effectiveTime value="681603126920" /> <value unit="EU /DL" xsi:type="PQ" value="0.2" />< interpretationCode codeSystem="local" code="N" /> <referenceRange> <observationRange> < text>NORMAL</text> </observationRange> </ referenceRange> </observation> </component> < component> <observation moodCode="EVN" classCode=" OBS"> <templateId root="2.16.840.1.072837.10.20.22.4.2& quot; /> <id nullFlavor="NA" /> <code codeSystem="local" code="600.1050" displayName=" BILIRUBIN,URINE - DIPSTICK" /> <statusCode code=" completed" /> <effectiveTime value="291129360893" /> <value unit="" xsi:type="PQ" value=" NEGATIVE" /> <interpretationCode codeSystem="local&quot ; code="N" /> <referenceRange> < observationRange> <text>NEGATIVE</text> & lt;/observationRange> </referenceRange> </ observation> </component><component> <observation moodCode="EVN" classCode="OBS"> <templateId root=& quot;2.16.840.1.907710.10.20.22.4.2" /> <id nullFlavor=&quot ;NA" /> <code codeSystem="local" code=" 600.1100" displayName="BLOOD, URINE" /> < statusCode code="completed" /><effectiveTime value=" 034327590973" /> <value unit="" xsi:type="PQ& quot; value="TRACE-INTACT" /> <interpretationCode codeSystem="local" code="Aa" /> < referenceRange> <observationRange> <text> NEGATIVE</text> </observationRange> </ referenceRange> </observation> </component> </ organizer> </entry> <entry> <organizer moodCode="EVN " classCode="BATTERY"> <templateId root=" 2.16.840.1.200444.10.20.22.4.1" /> <id nullFlavor="NA&quot ; /> <code codeSystem="local" code="MCUURINE" displayName="M153.0000" /> <statusCode code="completed " /> <component> <observation moodCode="EVN& quot; classCode="OBS"> <templateId root=" 2.16.840.1.975563.10.20.22.4.2" /> <id nullFlavor="NA& quot; /> <code codeSystem="local" code="307.0000& quot; displayName="URINE CULTURE." /> <statusCode code= "completed" /> <effectiveTime value="002775553540& quot; /> <value unit="CFU/ml" xsi:type="PQ" value=" " /> <interpretationCode codeSystem="local " code="S" /> <referenceRange> < observationRange> <text /> </ observationRange> </referenceRange> </observation&gt ; </component> </organizer> </entry> <entry> <organizer moodCode="EVN" classCode="BATTERY"> <templateId root="2.16.840.1.818147.10.20.22.4.1" /> < id nullFlavor="NA" /> <code codeSystem="local" code="MCUURINE" displayName="M153.0000" /> < statusCode code="completed" /> <component> < observation moodCode="EVN" classCode="OBS"> < templateId root="2.16.840.1.678244.10.20.22.4.2" /> < id nullFlavor="NA" /> <code codeSystem="local&quot ; code="307.0000" displayName="URINE CULTURE." /> <statusCode code="completed" /> <effectiveTime value="534438263432" /> <value unit="CFU/ml" xsi :type="PQ" value=" " /> <interpretationCode codeSystem="local" code="S" /> < referenceRange> <observationRange> <text /& gt; </observationRange> </referenceRange> </observation> </component> </organizer> </entry > <entry> <organizer moodCode="EVN" classCode=" BATTERY"> <templateId root="2.16.840.1.546528.10.20.22.4.1& quot; /> <id nullFlavor="NA" /> <code codeSystem ="local" code="LUADRMNC" displayName="L6003.0110" /> <statusCode code="completed" /> <component> <observation moodCode="EVN" classCode="OBS"> <templateId root="2.16.840.1.077840.10.20.22.4.2" /> <id nullFlavor="NA" /> <code codeSystem=" local" code="600.0500" displayName="SPECIMEN TYPE, URINE& quot; /> <statusCode code="completed" /> & lt;effectiveTime value="865835229156" /> <value unit=& quot;" xsi:type="PQ" value="VOIDED-NOT CC-MIDSTR" /&gt ; <interpretationCode codeSystem="local" code="N&quot ; /> <referenceRange> <observationRange> <text /> </observationRange> </ referenceRange> </observation> </component> < component><observation moodCode="EVN" classCode="OBS"& gt; <templateId root="2.16.840.1.591313.10.20.22.4.2" /&gt ; <id nullFlavor="NA" /> <code codeSystem=" local" code="600.0550" displayName="COLOR,URINE" /> <statusCode code="completed" /> < effectiveTime value="441654517577" /> <value unit=&quot ;" xsi:type="PQ" value="YELLOW" /> < interpretationCode codeSystem="local" code="N" /> <referenceRange> <observationRange> < text>YELLOW</text> </observationRange> </ referenceRange> </observation> </component> < component> <observation moodCode="EVN" classCode=" OBS"> <templateId root="2.16.840.1.197129.10.20.22.4.2& quot; /> <id nullFlavor="NA" /> <code codeSystem="local" code="600.0600" displayName=" TURBIDITY, URINE" /> <statusCode code="completed" /> <effectiveTime value="218865253987" /> & lt;value unit="" xsi:type="PQ" value="SL CLOUDY" / > <interpretationCode codeSystem="local" code="N" / > <referenceRange> <observationRange> <text>CLEAR</text> </observationRange> </ referenceRange> </observation> </component> < component> <observation moodCode="EVN" classCode=" OBS"> <templateId root="2.16.840.1.715890.10.20.22.4.2& quot; /> <id nullFlavor="NA" /> <code codeSystem="local" code="600.0650" displayName=" SPECIFIC GRAVITY,URINE" /> <statusCode code="completed& quot; /> <effectiveTime value="609141849616" /> <valueunit="" xsi:type="PQ" value="1.020&quot ; /> <interpretationCode codeSystem="local" code=" N" /> <referenceRange> <observationRange&gt ; <text>1.015-1.025</text> </ observationRange> </referenceRange> </observation&gt ; </component> <component> <observation moodCode ="EVN" classCode="OBS"> <templateId root=" 2.16.840.1.268184.10.20.22.4.2" /> <id nullFlavor="NA& quot; /> <code codeSystem="local" code="600.0700& quot; displayName="PH, URINE - DIPSTICK" /> < statusCode code="completed" /> <effectiveTime value=" 408794616662" /> <value unit="" xsi:type="PQ& quot; value="6.0" /> <interpretationCode codeSystem=& quot;local" code="N" /> <referenceRange> <observationRange> <text>5.0-8.0</text> </observationRange> </referenceRange> </ observation> </component> <component> < observation moodCode="EVN" classCode="OBS"> < templateId root="2.16.840.1.550934.10.20.22.4.2" /> < id nullFlavor="NA" /> <code codeSystem="local" code=& quot;600.0750" displayName="LEUKOCYTE ESTERASE ,URINE" /> <statusCode code="completed" /> < effectiveTime value="895438831409" /> <value unit=&quot ;" xsi:type="PQ" value="TRACE" /> < interpretationCode codeSystem="local" code="Aa" /> <referenceRange> <observationRange> < text>NEGATIVE</text> </observationRange> < /referenceRange> </observation> </component> < component> <observation moodCode="EVN" classCode=" OBS"> <templateId root="216.840.1.947504.10..22.4.2& quot; /> <id nullFlavor="NA" /> <code codeSystem="local" code="600.0800" displayName="NITRITE ,URINE" /> <statusCode code="completed" /> < effectiveTime value="538384427817" /> <value unit=&quot ;" xsi:type="PQ" value="POSITIVE" /> < interpretationCode codeSystem="local" code="Aa" />< referenceRange> <observationRange> <text> NEGATIVE</text> </observationRange> </ referenceRange> </observation> </component> < component> <observation moodCode="EVN" classCode=" OBS"> <templateId root="2.16.840.1.171476.10.20.22.4.2& quot; /> <id nullFlavor="NA" /> <code codeSystem="local" code="600.0850" displayName="PROTEIN ,URINE - DIPSTICK" /> <statusCode code="completed&quot ; /> <effectiveTime value="538637820884" /> &lt ;value unit="" xsi:type="PQ" value="NEGATIVE" /&gt ; <interpretationCode codeSystem="local" code="N&quot ; /> <referenceRange> <observationRange> <text>NEGATIVE</text></observationRange> & lt;/referenceRange> </observation> </component> <component> <observation moodCode="EVN" classCode=& quot;OBS"> <templateId root=" 2.16.840.1.359418.10.20.22.4.2" /> <id nullFlavor="NA& quot; /> <code codeSystem="local" code="600.0900& quot; displayName="GLUCOSE, URINE - DIPSTICK" /> < statusCode code="completed" /> <effectiveTime value=& quot;178602104689" /> <value unit="" xsi:type=& quot;PQ" value="NEGATIVE" /> <interpretationCode codeSystem="local" code="N" /> < referenceRange> <observationRange> <text>NEGATIVE& lt;/text> </observationRange> </referenceRange& gt; </observation> </component><component> <observation moodCode="EVN" classCode="OBS"> < templateId root="2.16.840.1.604008.10.20.22.4.2" /> < id nullFlavor="NA" /> <code codeSystem="local&quot ; code="600.0950" displayName="KETONES,URINE - DIPSTICK" /& gt; <statusCode code="completed" /> < effectiveTime value="490548334763" /> <value unit=&quot ;" xsi:type="PQ" value="NEGATIVE" /> < interpretationCode codeSystem="local" code="N" /> <referenceRange> <observationRange> < text>NEGATIVE</text> </observationRange> </ referenceRange> </observation> </component> < component> <observation moodCode="EVN" classCode=" OBS"> <templateId root="2.16.840.1.629273.10.20.22.4.2& quot; /> <id nullFlavor="NA" /> <code codeSystem="local" code="600.1000" displayName=" UROBILINOGEN,URINE" /> <statusCode code="completed&quot ; /> <effectiveTime value="520338294433" /> <value unit="EU/DL" xsi:type="PQ" value="0.2&quot ; /> <interpretationCode codeSystem="local" code=" N" /> <referenceRange> <observationRange&gt ; <text>NORMAL</text> </observationRange> </referenceRange> </observation> </component> <component> <observation moodCode="EVN" classCode ="OBS"> <templateId root=" 2.16.840.1.582930.10.20.22.4.2" /> <id nullFlavor="NA& quot; /> <code codeSystem="local" code="600.1050& quot; displayName="BILIRUBIN,URINE - DIPSTICK" /> < statusCode code="completed" /> <effectiveTime value=& quot;341170072742" /> <value unit="" xsi:type=& quot;PQ" value="NEGATIVE" /> <interpretationCode codeSystem="local" code="N" /> < referenceRange> <observationRange> <text> NEGATIVE</text> </observationRange> </ referenceRange> </observation> </component> < component> <observation moodCode="EVN" classCode=" OBS"> <templateId root="2.16.840.1.557974.10.20.22.4.2& quot; /> <id nullFlavor="NA" /> <code codeSystem="local" code="600.1100" displayName="BLOOD, URINE" /> <statusCode code="completed" /> <effectiveTime value="666526006688" /> <value unit="" xsi:type="PQ" value="TRACE-INTACT" /> <interpretationCode codeSystem="local" code="Aa" /& gt; <referenceRange> <observationRange> <text>NEGATIVE</text> </observationRange> </referenceRange> </observation></component> &lt ;/organizer> </entry> <entry> <organizer moodCode=" EVN" classCode="BATTERY"> <templateId root=" 2.16.840.1.831198.10.20.22.4.1" /> <id nullFlavor="NA&quot ; /> <code codeSystem="local" code="LUADMNC" displayName="L600.0180" /> <statusCode code="completed " /> <component> <observation moodCode="EVN& quot; classCode="OBS"> <templateId root=" 2.16.840.1.988459.10.20.22.4.2" /> <id nullFlavor="NA& quot; /> <code codeSystem="local" code="600.0500& quot; displayName="SPECIMEN TYPE, URINE" /> < statusCode code="completed" /> <effectiveTime value=& quot;281260818806" /> <value unit="" xsi:type=& quot;PQ" value="VOIDED-NOT CC-MIDSTR" /> < interpretationCode codeSystem="local" code="N" /> <referenceRange> <observationRange> < text /> </observationRange> </referenceRange&gt ; </observation> </component> <component> & lt;observation moodCode="EVN" classCode="OBS"> < templateId root="2.16.840.1.621489.10..22.4.2" /> < id nullFlavor="NA" /> <code codeSystem="local&quot ; code="600.0550" displayName="COLOR,URINE" /> & lt;statusCode code="completed" /><effectiveTime value=" 016340616334" /> <value unit="" xsi:type="PQ& quot; value="YELLOW" /> <interpretationCode codeSystem= "local" code="N" /> <referenceRange> <observationRange> <text>YELLOW</text> </observationRange> </referenceRange> </ observation> </component> <component> < observation moodCode="EVN" classCode="OBS"> < templateId root="2.16.840.1.604828.10..22.4.2" /> < id nullFlavor="NA" /> <code codeSystem="local&quot ; code="600.0600" displayName="TURBIDITY, URINE" /> <statusCode code="completed" /> <effectiveTime value="941786401660" /> <value unit="" xsi: type="PQ" value="SL CLOUDY" /> < interpretationCode codeSystem="local" code="N"/> <referenceRange> <observationRange> < text>CLEAR</text> </observationRange> </ referenceRange> </observation> </component> < component> <observation moodCode="EVN" classCode=" OBS"> <templateId root="2.16.840.1.204195.10.20.22.4.2& quot; /> <id nullFlavor="NA" /> <code codeSystem="local" code="600.0650" displayName=" SPECIFIC GRAVITY,URINE" /> <statusCode code="completed& quot; /> <effectiveTime value="607822021835" /> <value unit="" xsi:type="PQ" value="1.020&quot ; /> <interpretationCode codeSystem="local" code="N& quot; /> <referenceRange> <observationRange> <text>1.015-1.025</text> </ observationRange> </referenceRange> </observation&gt ; </component> <component> <observation moodCode=& quot;EVN" classCode="OBS"> <templateId root=" 2.16.840.1.867900.10.20.22.4.2" /> <id nullFlavor="NA&quot ; /> <code codeSystem="local" code="600.0700&quot ; displayName="PH, URINE - DIPSTICK" /> <statusCode code="completed" /> <effectiveTime value=" 273640144889" /> <value unit="" xsi:type="PQ& quot; value="6.0" /> <interpretationCode codeSystem=& quot;local" code="N" /> <referenceRange> < observationRange> <text>5.0-8.0</text> & lt;/observationRange> </referenceRange> </ observation> </component> <component> < observation moodCode="EVN" classCode="OBS"> < templateId root="2.16.840.1.376641.10.20.22.4.2" /> < id nullFlavor="NA" /> <code codeSystem="local&quot ; code="600.0750" displayName="LEUKOCYTE ESTERASE ,URINE" /& gt; <statusCode code="completed" /> < effectiveTime value="893006045632" /> <value unit=&quot ;" xsi:type="PQ" value="TRACE" /> < interpretationCode codeSystem="local" code="Aa" /> <referenceRange> <observationRange> < text>NEGATIVE</text> </observationRange> </ referenceRange> </observation> </component> < component> <observation moodCode="EVN" classCode="OBS "> <templateId root="2.16.840.1.802256.10.20.22.4.2& quot; /> <id nullFlavor="NA" /> <code codeSystem="local" code="600.0800" displayName="NITRITE ,URINE" /> <statusCode code="completed" /> <effectiveTime value="575463515345" /> <value unit="" xsi:type="PQ" value="POSITIVE" /> <interpretationCode codeSystem="local" code="Aa" /& gt; <referenceRange> <observationRange> <text>NEGATIVE</text> </observationRange> </referenceRange> </observation> </component&gt ; <component> <observation moodCode="EVN" classCode="OBS"> <templateId root=" 2.16.840.1.042262.10.20.22.4.2" /> <id nullFlavor="NA& quot; /> <code codeSystem="local" code="600.0850& quot; displayName="PROTEIN,URINE - DIPSTICK" /> < statusCode code="completed" /> <effectiveTime value=& quot;864222193723" /> <value unit="" xsi:type=& quot;PQ" value="NEGATIVE" /> <interpretationCode codeSystem="local" code="N" /> < referenceRange> <observationRange> <text> NEGATIVE</text> </observationRange> </ referenceRange> </observation> </component> < component> <observation moodCode="EVN" classCode=" OBS"> <templateId root="2.16.840.1.821034.10.20.22.4.2& quot; /> <id nullFlavor="NA" /> <code codeSystem="local" code="600.0900" displayName="GLUCOSE , URINE - DIPSTICK" /> <statusCode code="completed&quot ; /> <effectiveTime value="854954893390" /> <value unit="" xsi:type="PQ" value="NEGATIVE&quot ; /> <interpretationCode codeSystem="local" code=" N" /> <referenceRange> <observationRange&gt ; <text>NEGATIVE</text> </observationRange > </referenceRange> </observation> </ component> <component> <observation moodCode="EVN& quot; classCode="OBS"> <templateId root=" 2.16.840.1.670247.10.20.22.4.2" /> <id nullFlavor="NA&quot ; /> <code codeSystem="local" code="600.0950&quot ; displayName="KETONES,URINE - DIPSTICK" /> < statusCode code="completed" /> <effectiveTime value=& quot;809640324603" /> <value unit="" xsi:type="PQ&quot ; value="NEGATIVE" /> <interpretationCode codeSystem=& quot;local" code="N" /> <referenceRange> <observationRange> <text>NEGATIVE</text> </observationRange> </referenceRange> < /observation> </component> <component> < observation moodCode="EVN" classCode="OBS"> < templateId root="2.16.840.1.550373.10.20.22.4.2" /> < id nullFlavor="NA" /> <code codeSystem="local&quot ; code="600.1000" displayName="UROBILINOGEN,URINE" /> <statusCode code="completed" /> < effectiveTime value="736848758942" /> <value unit=&quot ;EU/DL" xsi:type="PQ" value="0.2" /> < interpretationCode codeSystem="local" code="N" /> <referenceRange> <observationRange> < text>NORMAL</text> </observationRange> </ referenceRange> </observation> </component> < component> <observation moodCode="EVN" classCode=" OBS"> <templateId root="2.16.840.1.337948.10.20.22.4.2& quot; /> <id nullFlavor="NA"/> <code codeSystem="local" code="600.1050" displayName=" BILIRUBIN,URINE - DIPSTICK" /> <statusCode code=" completed" /><effectiveTime value="705740090877" /> <value unit="" xsi:type="PQ" value="NEGATIVE& quot; /> <interpretationCode codeSystem="local" code=& quot;N" /> <referenceRange> < observationRange> <text>NEGATIVE</text> & lt;/observationRange> </referenceRange> </ observation> </component> <component> < observation moodCode="EVN" classCode="OBS"> < templateId root="2.16.840.1.254090.10.20.22.4.2" /> < id nullFlavor="NA" /> <code codeSystem="local" code=& quot;600.1100" displayName="BLOOD, URINE" /> < statusCode code="completed" /> <effectiveTime value=& quot;225516128508" /> <value unit="" xsi:type=& quot;PQ" value="TRACE-INTACT" /> < interpretationCode codeSystem="local" code="Aa" /> <referenceRange> <observationRange> < text>NEGATIVE</text> </observationRange> < /referenceRange></observation> </component> < component> <observation moodCode="EVN" classCode=" OBS"> <templateId root="2.16.840.1.850699.10.20.22.4.2& quot; /> <id nullFlavor="NA" /> <code codeSystem="local" code="600.1200" displayName="WBC, URINE" /> <statusCode code="completed" /> <effectiveTime value="560066670884" /> <value unit="/HPF" xsi:type="PQ" value="10-20" /> & lt;interpretationCode codeSystem="local" code="Doran" /> <referenceRange> <observationRange> & lt;text>0-5</text> </observationRange> </ referenceRange> </observation> </component> < component> <observation moodCode="EVN" classCode=" OBS"> <templateId root="2.16.840.1.289847.10..22.4.2& quot; /> <id nullFlavor="NA" /> <code codeSystem="local" code="600.1225" displayName="WBC CLUMPS,URINE" /> <statusCode code="completed" /&gt ; <effectiveTime value="753442510052" /> < value unit="" xsi:type="PQ" value="FEW" /> <interpretationCode codeSystem="local" code="N" /& gt; <referenceRange> <observationRange> <text /> </observationRange> </ referenceRange> </observation> </component> < component> <observation moodCode="EVN" classCode=" OBS"> <templateId root="2.16.840.1.889522.10.20.22.4.2& quot; /> <id nullFlavor="NA" /> <code codeSystem="local" code="600.1250" displayName="RBC, URINE" /> <statusCode code="completed" /> <effectiveTime value="777766013388" /> <value unit="/HPF" xsi:type="PQ" value="0-1" /> <interpretationCode codeSystem="local" code="N" /&gt ; <referenceRange> <observationRange> & lt;text>0-3</text> </observationRange> </ referenceRange> </observation> </component> < component> <observation moodCode="EVN" classCode=" OBS"> <templateId root="2.16.840.1.632312.10.20.22.4.2& quot; /> <id nullFlavor="NA" /> <code codeSystem="local" code="600.1300" displayName=" SQUAMOUS EPITHELIAL CELL,UR" /> <statusCode code=" completed" /> <effectiveTime value="085236915544" /> <value unit="" xsi:type="PQ" value=" NONE SEEN" /> <interpretationCode codeSystem="local" code="N" /> <referenceRange> < observationRange> <text /> </ observationRange> </referenceRange> </observation&gt ; </component> <component> <observation moodCode=& quot;EVN" classCode="OBS"> <templateId root=" 2.16.840.1.597722.10.20.22.4.2" /> <id nullFlavor="NA& quot; /> <code codeSystem="local" code="600.1450& quot; displayName="BACTERIA,URINE" /> <statusCode code= "completed" /> <effectiveTime value="824275586871" / > <value unit="" xsi:type="PQ" value="2+ " /> <interpretationCode codeSystem="local" code=& quot;Doran" /> <referenceRange> < observationRange> <text>NEGATIVE</text> < /observationRange> </referenceRange> </observation& gt; </component> </organizer> </entry> <entry&gt ; <organizer moodCode="EVN" classCode="BATTERY"> <templateId root="2.16.840.1.471976.10.20.22.4.1" /> & lt;id nullFlavor="NA" /> <code codeSystem="local&quot ; code="LBGM" displayName="L900.0530" /> < statusCode code="completed" /> <component> < observation moodCode="EVN" classCode="OBS"> < templateId root="2.16.840.1.177986.10.20.22.4.2" /> < id nullFlavor="NA" /><code codeSystem="local" code=& quot;900.0530" displayName="GLUCOMETER" /> < statusCode code="completed" /> <effectiveTime value=& quot;749938189462" /> <value unit="mg/dL" xsi:type ="PQ" value="309" /> <interpretationCode codeSystem="local" code="H" /> < referenceRange> <observationRange> <text> 65-110</text> </observationRange> </ referenceRange> </observation> </component> </ organizer> </entry> <entry> <organizer moodCode="EVN " classCode="BATTERY"> <templateId root=" 216.840.1.495844.10.20.22.4.1" /> <id nullFlavor="NA&quot ; /> <code codeSystem="local" code="LBGM" displayName="L900.0530" /> <statusCode code="completed " /> <component> <observation moodCode="EVN& quot; classCode="OBS"> <templateId root=" 2.16.840.1.136484.10.20.22.4.2" /> <id nullFlavor="NA& quot; /> <code codeSystem="local" code="900.0530& quot; displayName="GLUCOMETER" /> <statusCode code=& quot;completed" /> <effectiveTime value="370859595961& quot; /> <value unit="mg/dL" xsi:type="PQ" value=& quot;271" /> <interpretationCode codeSystem="local&quot ; code="H" /> <referenceRange> < observationRange> <text>65-110</text> &lt ;/observationRange> </referenceRange> </observation& gt; </component> </organizer> </entry> <entry&gt ; <organizer moodCode="EVN" classCode="BATTERY"> <templateId root="2.16.840.1.273352.10.20.22.4.1" /> & lt;id nullFlavor="NA" /> <code codeSystem="local&quot ; code="LCBC" displayName="L100.0050" /> < statusCode code="completed" /> <component> < observation moodCode="EVN" classCode="OBS"> < templateId root="2.16.840.1.177818.10.20.22.4.2" /> < id nullFlavor="NA" /> <code codeSystem="local&quot ; code="100.0150" displayName="WBC - WHITE BLOOD COUNT" /&gt ; <statusCode code="completed" /> < effectiveTime value="227692262427" /> <value unit=&quot ;T/MM3" xsi:type="PQ" value="21.5" /> < interpretationCode codeSystem="local" code="DH" /> <referenceRange> <observationRange> < text>4.5-11.0</text> </observationRange> < /referenceRange> </observation> </component> </ organizer> </entry> <entry> <organizer moodCode="EVN " classCode="BATTERY"> <templateId root=" 2.16.840.1.266836.10.20.22.4.1" /> <id nullFlavor="NA&quot ; /> <code codeSystem="local" code="LCBCM" displayName="L100.0060" /> <statusCode code="completed " /> <component> <observation moodCode="EVN& quot; classCode="OBS"> <templateId root=" 2.16.840.1.557568.10.20.22.4.2" /> <id nullFlavor="NA& quot; /> <code codeSystem="local" code="100.0150& quot; displayName="WBC - WHITE BLOOD COUNT" /> < statusCode code="completed" /> <effectiveTime value=&quot ;139564995002" /> <value unit="T/MM3" xsi:type=& quot;PQ" value="21.5" /> <interpretationCode codeSystem="local" code="DH" /> < referenceRange> <observationRange> <text> 4.5-11.0</text> </observationRange> </referenceRange& gt; </observation> </component> </organizer>&lt ;/entry> <entry> <organizer moodCode="EVN" classCode=& quot;BATTERY"> <templateId root=" 2.16.840.1.634338.10.20.22.4.1" /> <id nullFlavor="NA&quot ; /> <code codeSystem="local" code="LCMP" displayName="L200.0020" /> <statusCode code="completed " /> <component> <observation moodCode="EVN& quot; classCode="OBS"> <templateId root=" 2.16.840.1.779472.10.20.22.4.2" /> <id nullFlavor="NA& quot; /> <code codeSystem="local" code="200.0097& quot; displayName="ICTERUS" /> <statusCode code=" completed" /> <effectiveTime value="680200272818" /> <value unit="" xsi:type="PQ" value="& amp;lt; 2" /> <interpretationCode codeSystem="local& quot; code="N" /> <referenceRange> < observationRange> <text>0-7</text> </ observationRange> </referenceRange> </observation&gt ; </component> <component> <observation moodCode ="EVN" classCode="OBS"> <templateId root=& quot;2.16.840.1.020947.10.20.22.4.2" /> <id nullFlavor=&quot ;NA" /> <code codeSystem="local" code=" 200.0098" displayName="HEMOLYSIS" /> <statusCode code="completed" /> <effectiveTime value=" 575401589982" /> <value unit="" xsi:type="PQ& quot; value="< 15" /> <interpretationCode codeSystem=& quot;local" code="N" /> <referenceRange> <observationRange> <text>0-25</text> </ observationRange> </referenceRange> </observation&gt ; </component> </organizer> </entry> <entry> <organizer moodCode="EVN" classCode="BATTERY"> <templateId root="2.16.840.1.495242.10.20.22.4.1" /> < id nullFlavor="NA" /> <code codeSystem="local" code="LCBCM" displayName="L100.0060" /> < statusCode code="completed" /> <component> < observation moodCode="EVN" classCode="OBS"> < templateId root="2.16.840.1.214070.10.20.22.4.2" /> < id nullFlavor="NA" /> <code codeSystem="local&quot ; code="100.0150" displayName="WBC - WHITE BLOOD COUNT" /&gt ; <statusCode code="completed" /> < effectiveTime value="071761574154" /> <value unit=&quot ;T/MM3" xsi:type="PQ" value="21.5" /> < interpretationCode codeSystem="local" code="DH" /> <referenceRange> <observationRange> <text& gt;4.5-11.0</text> </observationRange> </ referenceRange> </observation> </component> </ organizer> </entry> <entry> <organizer moodCode="EVN " classCode="BATTERY"> <templateId root=" 2.16.840.1.529399.10.20.22.4.1" /> <id nullFlavor="NA" / > <code codeSystem="local" code="LBGM" displayName="L900.0530" /> <statusCode code="completed " /> <component> <observation moodCode="EVN&quot ; classCode="OBS"> <templateId root=" 2.16.840.1.254281.10.20.22.4.2" /> <id nullFlavor="NA& quot; /> <code codeSystem="local" code="900.0530& quot; displayName="GLUCOMETER" /> <statusCode code=& quot;completed" /> <effectiveTime value="204213615467" /& gt; <value unit="mg/dL" xsi:type="PQ" value=& quot;224" /> <interpretationCode codeSystem="local&quot ; code="H" /> <referenceRange> < observationRange> <text>65-110</text> &lt ;/observationRange> </referenceRange> </observation& gt; </component> </organizer> </entry> <entry&gt ; <organizer moodCode="EVN" classCode="BATTERY">&lt ;templateId root="2.16.840.1.513150.10.20.22.4.1" /> <id nullFlavor="NA" /> <code codeSystem="local" code= "LBGM" displayName="L900.0530" /> <statusCode code="completed" /> <component> <observation moodCode="EVN" classCode="OBS"> <templateId root="2.16.840.1.546100.10.20.22.4.2" /> <id nullFlavor ="NA" /> <code codeSystem="local" code="900.0530 " displayName="GLUCOMETER"/> <statusCode code=& quot;completed" /> <effectiveTime value="235809980927& quot; /> <value unit="mg/dL" xsi:type="PQ" value="243" /> <interpretationCode codeSystem=" local" code="H" /> <referenceRange> <observationRange> <text>65-110</text> </observationRange> </referenceRange> </ observation> </component> </organizer> </entry> & lt;entry> <organizer moodCode="EVN" classCode="BATTERY& quot;> <templateId root="2.16.840.1.216704.10.20.22.4.1" /& gt; <id nullFlavor="NA" /> <code codeSystem=" local" code="LBGM" displayName="L900.0530" /> & lt;statusCode code="completed" /> <component> &lt ;observation moodCode="EVN" classCode="OBS"> &lt ;templateId root="2.16.840.1.770610.10.20.22.4.2" /> < id nullFlavor="NA" /> <code codeSystem="local&quot ; code="900.0530" displayName="GLUCOMETER" /> & lt;statusCode code="completed" /> <effectiveTime value= "171074943245" /> <value unit="mg/dL" xsi:type=& quot;PQ" value="229" /> <interpretationCode codeSystem="local" code="H" /> < referenceRange> <observationRange> <text> 65-110</text> </observationRange> </ referenceRange> </observation> </component> </ organizer> </entry> <entry> <organizer moodCode="EVN "classCode="BATTERY"> <templateId root=" 2.16.840.1.140837.10.20.22.4.1" /> <id nullFlavor="NA&quot ; /> <code codeSystem="local" code="LHEMA" displayName="L100.0070" /> <statusCode code="completed " /> <component> <observation moodCode="EVN& quot; classCode="OBS"> <templateId root=" 2.16.840.1.003513.10.20.22.4.2" /> <id nullFlavor="NA& quot; /> <code codeSystem="local" code="100.0150& quot; displayName="WBC - WHITE BLOOD COUNT" /> < statusCode code="completed" /> <effectiveTime value=& quot;838443137572" /> <value unit="T/MM3" xsi:type ="PQ" value="12.2" /> <interpretationCode codeSystem="local" code="H" /> < referenceRange><observationRange> <text>4.5-11.0< /text> </observationRange> </referenceRange> </observation> </component> <component> <observation moodCode="EVN" classCode="OBS"> < templateId root="2.16.840.1.070255.10.20.22.4.2" /> < id nullFlavor="NA" /> <code codeSystem="local&quot ; code="100.0250" displayName="RED BLOOD COUNT" /> <statusCode code="completed" /><effectiveTime value=&quot ;335121844550" /> <value unit="M/MM3" xsi:type=& quot;PQ" value="3.54" /> <interpretationCode codeSystem="local" code="L" /> < referenceRange> <observationRange> <text> 4.00-5.20</text> </observationRange> </ referenceRange> </observation> </component> < component> <observation moodCode="EVN" classCode=" OBS"> <templateId root="2.16.840.1.079185.10.20.22.4.2& quot; /> <id nullFlavor="NA" /> <code codeSystem="local" code="100.0300" displayName="HGB - HEMOGLOBIN" /> <statusCode code="completed" /> <effectiveTime value="714807922744" /> < value unit="GM/DL" xsi:type="PQ" value="9.8" /&gt ; <interpretationCode codeSystem="local" code="L&quot ; /> <referenceRange> <observationRange> <text>12-16</text> </observationRange> </referenceRange> </observation> </component& gt; <component> <observation moodCode="EVN" classCode="OBS"> <templateId root=" 2.16.840.1.008594.10.20.22.4.2" /> <id nullFlavor="NA& quot; /> <code codeSystem="local" code="100.0400& quot; displayName="HCT - HEMATOCRIT" /> <statusCode code="completed" /> <effectiveTime value=" 541582248662"/> <value unit="%" xsi:type=& quot;PQ" value="32.0" /> <interpretationCode codeSystem="local" code="L" /> < referenceRange> <observationRange> <text> 36-46</text> </observationRange> </ referenceRange> </observation> </component> < component> <observation moodCode="EVN" classCode=" OBS"> <templateId root="2.16.840.1.001316.10.20.22.4.2& quot; /> <id nullFlavor="NA" /> <code codeSystem="local" code="100.0550" displayName="MEAN CORPUSCULAR VOLUME" /> <statusCode code="completed&quot ; /> <effectiveTime value="326987485459" />< value unit="UM3" xsi:type="PQ" value="90.4" /> <interpretationCode codeSystem="local" code="N&quot ; /> <referenceRange> <observationRange> <text>80-100</text> </observationRange> </referenceRange> </observation> </component& gt; <component> <observation moodCode="EVN" classCode="OBS"> <templateId root=" 2.16.840.1.622493.10.20.22.4.2" /> <id nullFlavor="NA& quot; /> <code codeSystem="local" code="100.0600& quot; displayName="MEAN CORPUSCULAR HGB" /> < statusCode code="completed" /> <effectiveTime value=& quot;879871358197" /> <value unit="UUG" xsi:type=& quot;PQ" value="27.7" /> <interpretationCode codeSystem="local" code="N" /> < referenceRange> <observationRange> <text> 26-34</text> </observationRange> </referenceRange&gt ; </observation> </component> <component> <observation moodCode="EVN" classCode="OBS"> <templateId root="2.16.840.1.260828.10.20.22.4.2" /> <id nullFlavor="NA" /> <code codeSystem=" local" code="100.0650" displayName="MEAN CORPUSCULAR HGB CONC([facility]" /> <statusCode code="completed" />& lt;effectiveTime value="510293836579" /> <value unit=& quot;GM/DL" xsi:type="PQ" value="30.6" /> & lt;interpretationCode codeSystem="local" code="L" /> <referenceRange> <observationRange> & lt;text>31-37</text> </observationRange> < /referenceRange> </observation> </component> &lt ;component> <observation moodCode="EVN" classCode=" OBS"> <templateId root="2.16.840.1.193476.10.20.22.4.2& quot; /> <id nullFlavor="NA" /> <code codeSystem="local" code="100.0750" displayName="RDW STANDARD DEVIATION" /> <statusCode code="completed&quot ; /> <effectiveTime value="246487809817" /> <value unit="FL" xsi:type="PQ" value="54.3" / > <interpretationCode codeSystem="local" code="H& quot; /> <referenceRange> <observationRange> <text>36.9-50.2</text> </ observationRange> </referenceRange> </observation> </component> <component> <observation moodCode=& quot;EVN" classCode="OBS"> <templateId root=" 2.16.840.1.925534.10.20.22.4.2" /> <id nullFlavor="NA& quot; /> <code codeSystem="local" code="100.0850& quot; displayName="PLT - PLATELET COUNT" /> <statusCode code=& quot;completed" /> <effectiveTime value="470356821628& quot; /> <value unit="T/MM3" xsi:type="PQ" value="270" /> <interpretationCode codeSystem=" local" code="N" /> <referenceRange> < observationRange> <text>130-400</text> & lt;/observationRange> </referenceRange> </ observation> </component> <component> < observation moodCode="EVN" classCode="OBS"> < templateId root="2.16.840.1.810844.10.20.22.4.2" /> < id nullFlavor="NA" /> <code codeSystem="local&quot ; code="100.0950" displayName="MEAN PLATELET VOLUME" /> <statusCode code="completed" /> < effectiveTime value="115008396862" /> <value unit="UM3& quot; xsi:type="PQ" value="10.5" /> < interpretationCode codeSystem="local" code="N" /> <referenceRange> <observationRange> < text>9.4-12.4</text> </observationRange> < /referenceRange> </observation> </component> </ organizer> </entry> <entry> <organizer moodCode="EVN " classCode="BATTERY"> <templateId root=" 2.16.840.1.107107.10.20.22.4.1"/> <id nullFlavor="NA" /> <code codeSystem="local" code="LCMP" displayName="L200.0020" /> <statusCode code="completed "/> <component> <observation moodCode="EVN& quot; classCode="OBS"> <templateId root=" 2.16.840.1.223419.10.20.22.4.2" /> <id nullFlavor="NA& quot; /> <code codeSystem="local" code="200.0097& quot; displayName="ICTERUS" /> <statusCode code=" completed" /> <effectiveTime value="326870332475" /&gt ; <value unit="" xsi:type="PQ" value="& lt; 2" /> <interpretationCode codeSystem="local" code="N" /> <referenceRange> < observationRange> <text>0-7</text> </ observationRange> </referenceRange> </observation&gt ; </component> <component><observation moodCode=" EVN" classCode="OBS"> <templateId root=" 2.16.840.1.230683.10.20.22.4.2" /> <id nullFlavor="NA& quot; /> <code codeSystem="local" code="200.0098" displayName="HEMOLYSIS" /> <statusCode code=" completed" /> <effectiveTime value="258959564306" /> <value unit="" xsi:type="PQ" value=" 39" /> <interpretationCode codeSystem="local" code ="H" /> <referenceRange> < observationRange> <text>0-25</text> </ observationRange> </referenceRange> </observation&gt ; </component> </organizer> </entry> <entry> <organizer moodCode="EVN" classCode="BATTERY"> <templateId root="2.16.840.1.943601.10.20.22.4.1" /> < id nullFlavor="NA" /> <code codeSystem="local" code="LBGM" displayName="L900.0530" /> < statusCode code="completed" /> <component> < observation moodCode="EVN" classCode="OBS"> < templateId root="2.16.840.1.028885.10.20.22.4.2" /> < id nullFlavor="NA" /> <code codeSystem="local&quot ; code="900.0530" displayName="GLUCOMETER" /> & lt;statusCode code="completed" /> <effectiveTime value= "125627890141" /> <value unit="mg/dL" xsi: type="PQ" value="82" /> <interpretationCode codeSystem="local" code="N" /> < referenceRange> <observationRange> <text>65- 110</text> </observationRange> </ referenceRange> </observation> </component> </ organizer> </entry> <entry> <organizer moodCode="EVN " classCode="BATTERY"> <templateId root=" 2.16.840.1.540989.10.20.22.4.1" /> <id nullFlavor="NA" / > <code codeSystem="local" code="LBGM" displayName="L900.0530" /> <statusCode code="completed " /> <component> <observation moodCode="EVN&quot ; classCode="OBS"> <templateId root=" 2.16.840.1.338269.10.20.22.4.2" /> <id nullFlavor="NA& quot; /> <code codeSystem="local" code="900.0530& quot; displayName="GLUCOMETER" /> <statusCode code=& quot;completed" /> <effectiveTime value="904938998109" /& gt; <value unit="mg/dL" xsi:type="PQ" value=& quot;156" /> <interpretationCode codeSystem="local&quot ; code="H" /> <referenceRange> < observationRange> <text>65-110</text> &lt ;/observationRange> </referenceRange> </observation& gt; </component> </organizer> </entry> <entry&gt ; <organizer moodCode="EVN" classCode="BATTERY">&lt ;templateId root="2.16.840.1.055055.10.20.22.4.1" /> <id nullFlavor="NA" /> <code codeSystem="local" code= "LUADMRC" displayName="L600.0175" /> <statusCode code="completed" /> <component> <observation moodCode ="EVN" classCode="OBS"> <templateId root=& quot;2.16.840.1.363642.10.20.22.4.2" /> <id nullFlavor=&quot ;NA" /> <code codeSystem="local" code="600.0500& quot; displayName="SPECIMEN TYPE, URINE" /> < statusCode code="completed" /> <effectiveTime value=& quot;888546089219" /> <value unit="" xsi:type=& quot;PQ" value="CLEANCATCH-MIDSTREAM" /> < interpretationCode codeSystem="local" code="N" /> <referenceRange> <observationRange> <text / > </observationRange> </referenceRange></ observation> </component> <component> < observation moodCode="EVN" classCode="OBS"> < templateId root="2.16.840.1.716330.10.20.22.4.2" /> < id nullFlavor="NA" /> <code codeSystem="local&quot ; code="600.0550" displayName="COLOR,URINE" /> & lt;statusCode code="completed" /> <effectiveTime value= "323322034565" /> <value unit="" xsi:type=& quot;PQ" value="ORANGE" /> <interpretationCode codeSystem ="local" code="N" /> <referenceRange> <observationRange> <text>YELLOW</text> & lt;/observationRange> </referenceRange> </ observation> </component> <component> < observation moodCode="EVN" classCode="OBS"> < templateId root="2.16.840.1.199071.10.20.22.4.2" /> < id nullFlavor="NA" /> <code codeSystem="local&quot ; code="600.0600" displayName="TURBIDITY, URINE" /> <statusCode code="completed" /> <effectiveTime value="152491993295" /> <value unit="" xsi: type="PQ" value="CLOUDY" /> < interpretationCode codeSystem="local" code="N" /> <referenceRange> <observationRange> < text>CLEAR</text> </observationRange> </ referenceRange> </observation> </component> < component> <observation moodCode="EVN" classCode=" OBS"> <templateId root="2.16.840.1.754786.10.20.22.4.2& quot; /> <id nullFlavor="NA" /> <code codeSystem="local" code="600.0650" displayName=" SPECIFIC GRAVITY,URINE" /> <statusCode code="completed& quot; /> <effectiveTime value="115842115021" /> <value unit="" xsi:type="PQ" value=">= 1.030" /> <interpretationCode codeSystem="local" code="Doran" /> <referenceRange> < observationRange> <text>1.015-1.025</text> </observationRange></referenceRange> </observation> </component> <component> <observation moodCode=& quot;EVN" classCode="OBS"> <templateId root=" 2.16.840.1.320068.10.20.22.4.2" /> <id nullFlavor="NA& quot; /> <code codeSystem="local" code="600.0700& quot; displayName="PH, URINE- DIPSTICK" /> <statusCode code="completed" /> <effectiveTime value=" 659834728656" /> <value unit="" xsi:type="PQ& quot; value="5.0" /> <interpretationCode codeSystem=& quot;local" code="N" /> <referenceRange> <observationRange> <text>5.0-8.0</text> </observationRange> </referenceRange> </ observation> </component> <component> < observation moodCode="EVN" classCode="OBS"> < templateId root="2.16.840.1.364628.10.20.22.4.2" /> < id nullFlavor="NA" /> <code codeSystem="local&quot ; code="600.0750" displayName="LEUKOCYTE ESTERASE ,URINE" /& gt; <statusCode code="completed" /> < effectiveTime value="449513780419" /> <value unit=&quot ;" xsi:type="PQ" value="INCONCL DUE TO COLOR" /> <interpretationCode codeSystem="local" code="N" /& gt; <referenceRange> <observationRange> <text>NEGATIVE</text> </observationRange> </referenceRange> </observation> </component> <component> <observation moodCode="EVN" classCode=& quot;OBS"> <templateId root=" 2.16.840.1.838412.10.20.22.4.2" /> <id nullFlavor="NA& quot; /> <code codeSystem="local" code="600.0800& quot; displayName="NITRITE,URINE" /> <statusCode code=& quot;completed" /> <effectiveTime value="344851341265& quot; /> <value unit="" xsi:type="PQ" value=& quot;INCONCL DUE TO COLOR" /> <interpretationCode codeSystem ="local" code="N" /> <referenceRange> <observationRange> <text>NEGATIVE</text> </observationRange> </referenceRange> </ observation> </component> <component> < observation moodCode="EVN" classCode="OBS"> < templateId root="2.16.840.1.576161.10.20.22.4.2" /> < id nullFlavor="NA" /> <code codeSystem="local&quot ; code="600.0850" displayName="PROTEIN,URINE - DIPSTICK" /& gt; <statusCode code="completed" /> < effectiveTime value="198360331959" /> <value unit=&quot ;" xsi:type="PQ" value="INCONCL DUE TO COLOR" /> <interpretationCode codeSystem="local" code="N" /& gt; <referenceRange> <observationRange> &lt ;text>NEGATIVE</text> </observationRange> &lt ;/referenceRange> </observation> </component> & lt;component> <observation moodCode="EVN" classCode=&quot ;OBS"> <templateId root="2.16.840.1.290302.10.20.22.4.2 " /> <id nullFlavor="NA" /> <code codeSystem="local" code="600.0900" displayName="GLUCOSE , URINE - DIPSTICK" /> <statusCode code="completed&quot ; /> <effectiveTime value="002751371996" /> <value unit="" xsi:type="PQ" value="INCONCL DUE TO COLOR" /> <interpretationCode codeSystem="local" code="N" /> <referenceRange> < observationRange> <text>NEGATIVE</text> & lt;/observationRange> </referenceRange> </ observation> </component> <component> < observation moodCode="EVN" classCode="OBS"> < templateId root="2.16.840.1.134820.10.20.22.4.2" /> < id nullFlavor="NA" /> <code codeSystem="local&quot ; code="600.0950" displayName="KETONES,URINE - DIPSTICK" /& gt; <statusCodecode="completed" /> < effectiveTime value="901023458357" /> <value unit="& quot; xsi:type="PQ" value="INCONCL DUE TO COLOR" /> <interpretationCode codeSystem="local" code="N" /&gt ; <referenceRange> <observationRange> <text>NEGATIVE</text> </observationRange> </referenceRange> </observation> </component> <component> <observation moodCode="EVN" classCode=& quot;OBS"> <templateId root=" 2.16.840.1.477232.10.20.22.4.2" /> <id nullFlavor="NA&quot ; /> <code codeSystem="local" code="600.1000&quot ; displayName="UROBILINOGEN,URINE" /> <statusCode code= "completed" /> <effectiveTime value="966620924310& quot; /> <value unit="EU/DL" xsi:type="PQ" value="INCONCL DUE TO COLOR" /> <interpretationCode codeSystem="local" code="N" /> < referenceRange> <observationRange> <text> NORMAL</text> </observationRange> </referenceRange&gt ; </observation> </component> <component> <observation moodCode="EVN" classCode="OBS"> <templateId root="2.16.840.1.058724.10.20.22.4.2" />< id nullFlavor="NA" /> <code codeSystem="local&quot ; code="600.1050" displayName="BILIRUBIN,URINE - DIPSTICK" / > <statusCode code="completed" /> < effectiveTime value="193260720780" /> <value unit=&quot ;" xsi:type="PQ" value="INCONCL DUE TO COLOR" /> &lt ;interpretationCode codeSystem="local" code="N" /> <referenceRange> <observationRange> < text>NEGATIVE</text> </observationRange> </ referenceRange> </observation> </component> < component> <observation moodCode="EVN" classCode=" OBS"> <templateId root="2.16.840.1.551479.10.20.22.4.2& quot; /> <id nullFlavor="NA" /> <code codeSystem="local" code="600.1100" displayName="BLOOD, URINE" /> <statusCode code="completed" /> <effectiveTime value="378095615568" /> <value unit="" xsi:type="PQ" value="INCONCL DUE TO COLOR&quot ; /> <interpretationCode codeSystem="local" code=" N" /> <referenceRange> <observationRange> <text>NEGATIVE</text> </observationRange> </referenceRange> </observation> </component > <component> <observation moodCode="EVN" classCode ="OBS"> <templateId root=" 2.16.840.1.344306.10.20.22.4.2" /> <id nullFlavor="NA& quot; /> <code codeSystem="local" code="600.1200& quot; displayName="WBC,URINE" /> <statusCode code=&quot ;completed" /> <effectiveTime value="910720211754&quot ; /> <value unit="/HPF" xsi:type="PQ" value=& quot;TNTC" /> <interpretationCode codeSystem="local& quot; code="Doran" /> <referenceRange> < observationRange> <text>0-5</text> </ observationRange> </referenceRange> </observation&gt ; </component> <component> <observation moodCode ="EVN" classCode="OBS"> <templateId root=& quot;2.16.840.1.983841.10.20.22.4.2" /> <id nullFlavor=&quot ;NA" /> <code codeSystem="local" code=" 600.1250" displayName="RBC,URINE" /> <statusCode code ="completed" /> <effectiveTime value="059816562907 " /> <value unit="/HPF" xsi:type="PQ" value="20-30" /> <interpretationCode codeSystem=" local" code="Doran" /> <referenceRange> & lt;observationRange> <text>0-3</text> &lt ;/observationRange> </referenceRange> </observation& gt; </component> <component> <observation moodCode="EVN" classCode="OBS"> <templateId root="2.16.840.1.553135.10.20.22.4.2" /> <id nullFlavor ="NA" /> <code codeSystem="local" code=" 600.1300" displayName="SQUAMOUS EPITHELIAL CELL,UR" /> <statusCode code="completed" /> <effectiveTime value="316570700727" /> <value unit="" xsi: type="PQ" value="0-5" /> <interpretationCode codeSystem="local" code="N" /> < referenceRange> <observationRange> <text /& gt; </observationRange> </referenceRange> </observation> </component> <component> &lt ;observation moodCode="EVN" classCode="OBS">< templateId root="2.16.840.1.498890.10..22.4.2" /> < id nullFlavor="NA" /> <code codeSystem="local&quot ; code="600.1450" displayName="BACTERIA,URINE" /> <statusCode code="completed" /> <effectiveTime value="389772762014" /> <value unit="" xsi: type="PQ" value="3+" /> <interpretationCode codeSystem="local"code="Doran" /> < referenceRange> <observationRange> <text>NEGATIVE </text> </observationRange> </referenceRange& gt; </observation> </component> <component> <observation moodCode="EVN" classCode="OBS"> <templateId root="2.16.840.1.684132.10.20.22.4.2" /> <id nullFlavor="NA" /> <code codeSystem=&quot ;local" code="600.2400" displayName="CULTURE SET UP,URINE& quot; /> <statusCode code="completed" /> & lt;effectiveTime value="372375257898" /> <value unit=& quot;" xsi:type="PQ" value="CULT REFLEXED &SETUP& quot; /> <interpretationCode codeSystem="local" code=& quot;N" /> <referenceRange> < observationRange> <text /> </observationRange> </referenceRange> </observation> </component& gt; </organizer> </entry> <entry> <organizer moodCode="EVN" classCode="BATTERY"> <templateId root="2.16.840.1.675696.10.20.22.4.1" /> <id nullFlavor=& quot;NA" /> <codecodeSystem="local" code=" MCUURINE" displayName="M153.0000" /> <statusCode code= "completed" /> <component> <observation moodCode="EVN" classCode="OBS"> <templateId root="2.16.840.1.039805.10.20.22.4.2" /> <id nullFlavor ="NA" /> <code codeSystem="local" code=" 307.0000" displayName="URINE CULTURE." /> < statusCode code="completed" /> <effectiveTime value=& quot;840750149989" /> <value unit="CFU/ml" xsi: type="PQ" value=" " /> <interpretationCode codeSystem="local" code="S" /> < referenceRange> <observationRange> <text /& gt; </observationRange> </referenceRange> </observation> </component> </organizer> </entry > <entry> <organizer moodCode="EVN" classCode=" BATTERY"> <templateId root="2.16.840.1.686843.10.20.22.4.1& quot; /> <id nullFlavor="NA" /> <code codeSystem ="local" code="LCBC" displayName="L100.0050" /&gt ; <statusCode code="completed" /> <component> <observation moodCode="EVN" classCode="OBS"> <templateId root="2.16.840.1.650043.10.20.22.4.2" /> <id nullFlavor="NA" /> <code codeSystem=" local" code="100.0150" displayName="WBC - WHITE BLOOD COUNT& quot; /> <statusCode code="completed" /> & lt;effectiveTime value="963475143847" /> <value unit=& quot;T/MM3" xsi:type="PQ" value="10.1" /> & lt;interpretationCode codeSystem="local" code="N" /> <referenceRange> <observationRange> & lt;text>4.5-11.0</text> </observationRange> & lt;/referenceRange> </observation> </component> <component> <observation moodCode="EVN" classCode=& quot;OBS"> <templateId root=" 2.16.840.1.931833.10.20.22.4.2" /> <id nullFlavor="NA& quot; /> <code codeSystem="local" code="100.0250& quot; displayName="RED BLOOD COUNT" /> <statusCode code ="completed" /> <effectiveTime value="762279331427 " /> <value unit="M/MM3" xsi:type="PQ" value="4.62" /> <interpretationCode codeSystem=" local" code="N" /> <referenceRange> <observationRange> <text>4.00-5.20</text> & lt;/observationRange> </referenceRange> </ observation> </component> <component> < observation moodCode="EVN" classCode="OBS"> < templateId root="[id number]" /> < id nullFlavor="NA" /> <code codeSystem="local&quot ; code="100.0300" displayName="HGB - HEMOGLOBIN" /> <statusCode code="completed" /> <effectiveTime value="765817053073" /> <value unit="GM/DL" xsi:type="PQ" value="12.4" /> < interpretationCode codeSystem="local" code="N"/> <referenceRange> <observationRange> < text>12-16</text> </observationRange> </ referenceRange> </observation> </component> < component> <observation moodCode="EVN" classCode=" OBS"> <templateId root="2.16.840.1.805084.10.20.22.4.2& quot; /> <id nullFlavor="NA" /> <code codeSystem="local" code="100.0400" displayName="HCT - HEMATOCRIT" /> <statusCode code="completed" /> <effectiveTime value="015507596385" /> < value unit="%" xsi:type="PQ" value="41.1" /> <interpretationCode codeSystem="local" code="N& quot; /> <referenceRange> <observationRange> <text>36-46</text> </observationRange> </referenceRange> </observation> </component&gt ; <component> <observation moodCode="EVN" classCode="OBS"> <templateId root=" 2.16.840.1.256577.10.20.22.4.2" /> <id nullFlavor="NA" /& gt; <code codeSystem="local" code="100.0550" displayName="MEAN CORPUSCULAR VOLUME" /> <statusCode code="completed" /> <effectiveTime value=" 084938302400" /> <value unit="UM3" xsi:type=" PQ" value="89.0" /> <interpretationCode codeSystem ="local" code="N" /> <referenceRange> <observationRange> <text>80-100</text> </observationRange> </referenceRange> </ observation> </component> <component> < observation moodCode="EVN" classCode="OBS"> < templateId root="2.16.840.1.443264.10.20.22.4.2" /> < id nullFlavor="NA" /> <code codeSystem="local&quot ; code="100.0600" displayName="MEAN CORPUSCULAR HGB" /> <statusCode code="completed" /> < effectiveTime value="553693927620" /> <value unit=&quot ;UUG" xsi:type="PQ" value="26.8" /> < interpretationCode codeSystem="local" code="N" /> <referenceRange> <observationRange> < text>26-34</text> </observationRange> </ referenceRange> </observation> </component> < component> <observation moodCode="EVN" classCode="OBS&quot ;> <templateId root="2.16.840.1.314163.10.20.22.4.2" /& gt; <id nullFlavor="NA" /> <code codeSystem=& quot;local" code="100.0650" displayName="MEAN CORPUSCULAR HGB CONC([facility]" /> <statusCode code="completed" /& gt; <effectiveTime value="601034994616" /> &lt ;value unit="GM/DL" xsi:type="PQ" value="30.2" /& gt; <interpretationCode codeSystem="local" code="L& quot; /> <referenceRange> <observationRange> <text>31-37</text> </observationRange> </referenceRange> </observation> </component& gt; <component> <observation moodCode="EVN" classCode="OBS"> <templateId root=" 2.16.840.1.979496.10.20.22.4.2" /> <id nullFlavor="NA& quot; /> <code codeSystem="local" code="100.0750& quot; displayName="RDW STANDARD DEVIATION" /> < statusCode code="completed" /> <effectiveTime value=& quot;707953074053" /> <value unit="FL" xsi:type=& quot;PQ" value="51.7" /> <interpretationCode codeSystem="local" code="H"/> <referenceRange > <observationRange> <text>36.9-50.2</ text> </observationRange> </referenceRange> </observation> </component> <component> <observation moodCode="EVN" classCode="OBS"> <templateId root="2.16.840.1.612187.10.20.22.4.2" /> <id nullFlavor="NA" /> <code codeSystem=" local" code="100.0850" displayName="PLT - PLATELET COUNT& quot; /> <statusCode code="completed" /> & lt;effectiveTime value="627731555722" /> <value unit=& quot;T/MM3" xsi:type="PQ" value="355" /> & lt;interpretationCode codeSystem="local" code="N" /> <referenceRange> <observationRange> & lt;text>130-400</text> </observationRange> &lt ;/referenceRange> </observation> </component> < component> <observation moodCode="EVN" classCode=" OBS"> <templateId root="2.16.840.1.309259.10.20.22.4.2& quot; /> <id nullFlavor="NA" /> <code codeSystem="local" code="100.0950" displayName="MEAN PLATELET VOLUME" /> <statusCode code="completed" / > <effectiveTime value="027989086903" /> & lt;value unit="UM3" xsi:type="PQ" value="9.2" /&gt ; <interpretationCode codeSystem="local" code="L&quot ; /> <referenceRange> <observationRange> <text>9.4-12.4</text> </observationRange> </referenceRange> </observation> </component&gt ; <component> <observation moodCode="EVN" classCode ="OBS"> <templateId root=" 2.16.840.1.798944.10.20.22.4.2" /> <id nullFlavor="NA& quot; /> <code codeSystem="local" code="100.1050& quot; displayName="NEUTROPHILS % (AUTO)" /> < statusCode code="completed" /> <effectiveTime value=& quot;090804303524" /> <value unit="%" xsi: type="PQ" value="76.6" /> < interpretationCode codeSystem="local" code="H" /> <referenceRange><observationRange> <text>33-66 </text> </observationRange> </referenceRange& gt; </observation> </component> <component> <observation moodCode="EVN" classCode="OBS"> <templateId root="2.16.840.1.707654.10.20.22.4.2" /> <id nullFlavor="NA" /> <code codeSystem=&quot ;local" code="100.1100" displayName="LYMPHOCYTES % ( AUTO)" /> <statusCode code="completed" /> <effectiveTime value="303337887991" /> <value unit="%" xsi:type="PQ" value="16.5" /> <interpretationCode codeSystem="local" code="L&quot ; /> <referenceRange> <observationRange> <text>23-45</text> </observationRange> </referenceRange> </observation> </component> <component> <observation moodCode="EVN" classCode= "OBS"> <templateId root=" 2.16.840.1.438439.10.20.22.4.2" /> <id nullFlavor="NA& quot; /> <code codeSystem="local" code="100.1150& quot; displayName="MONOCYTES % (AUTO)" /> < statusCode code="completed" /> <effectiveTime value=& quot;244114774605" /> <value unit="%" xsi: type="PQ" value="4.5" /> <interpretationCode codeSystem="local" code="N" /> < referenceRange> <observationRange> <text> 0-9.0</text> </observationRange> </ referenceRange> </observation> </component> < component> <observation moodCode="EVN" classCode=" OBS"> <templateId root="2.16.840.1.909739.10.20.22.4.2& quot; /> <id nullFlavor="NA" /><code codeSystem=& quot;local" code="100.1200" displayName="EOSINOPHILS &# 37; (AUTO)" /> <statusCode code="completed" /> <effectiveTime value="572482932389" /> < value unit="%" xsi:type="PQ" value="1.5" / > <interpretationCode codeSystem="local" code="N& quot; /> <referenceRange> <observationRange> <text>0-4</text> </observationRange> & lt;/referenceRange> </observation> </component> <component> <observation moodCode="EVN" classCode=& quot;OBS"> <templateId root=" 2.16.840.1.842061.10.20.22.4.2" /> <id nullFlavor="NA& quot; /> <code codeSystem="local" code="100.1250& quot; displayName="BASOPHILS % (AUTO)" /> < statusCode code="completed" /> <effectiveTime value=& quot;056443215123" /> <value unit="%" xsi: type="PQ" value="0.6" /> <interpretationCode codeSystem="local" code="N" /> < referenceRange> <observationRange> <text> 0-2</text> </observationRange> </ referenceRange> </observation> </component> < component> <observation moodCode="EVN" classCode=" OBS"> <templateId root="2.16.840.1.232179.10.20.22.4.2& quot; /> <id nullFlavor="NA" /> <code codeSystem="local" code="100.1275" displayName=" IMMATURE GRANULOCYTE % (AUTO)" /> <statusCode code=& quot;completed" /> <effectiveTime value="921840070888& quot; /> <value unit="%" xsi:type="PQ&quot ; value="0.3" /> <interpretationCode codeSystem=" local" code="N" /> <referenceRange> <observationRange> <text>0.0-0.5</text> </observationRange> </referenceRange> </ observation> </component> <component> < observation moodCode="EVN" classCode="OBS"> < templateId root="2.16.840.1.139227.10.20.22.4.2" /> < id nullFlavor="NA" /> <code codeSystem="local&quot ; code="100.1300" displayName="NEUTROPHILS # (AUTO)" /> <statusCode code="completed" /> < effectiveTime value="195228112977"/> <value unit=" T/MM3" xsi:type="PQ" value="7.7" /> < interpretationCode codeSystem="local" code="N" /> <referenceRange> <observationRange> < text>1.8-7.7</text> </observationRange> </ referenceRange> </observation> </component> < component> <observation moodCode="EVN" classCode=" OBS"> <templateId root="2.16.840.1.650617.10.20.22.4.2& quot; /> <id nullFlavor="NA" /> <code codeSystem="local" code="100.1350" displayName=" LYMPHOCYTES # (AUTO)" /> <statusCode code="completed& quot; /> <effectiveTime value="514578829971" /> <value unit="T/MM3" xsi:type="PQ" value="1.7& quot; /> <interpretationCode codeSystem="local" code=& quot;N" /> <referenceRange> <observationRange&gt ; <text>1-4.8</text> </observationRange& gt; </referenceRange> </observation> </ component><component> <observation moodCode="EVN" classCode="OBS"> <templateId root=" 2.16.840.1.019337.10.20.22.4.2" /> <id nullFlavor="NA& quot; /> <code codeSystem="local" code="100.1400& quot; displayName="MONOCYTES # (AUTO)" /> <statusCode code="completed" /> <effectiveTime value="089844392720 " /> <value unit="T/MM3" xsi:type="PQ" value="0.5" /> <interpretationCode codeSystem=" local" code="N" /> <referenceRange> <observationRange> <text>0-0.8</text> </observationRange> </referenceRange> </ observation> </component> <component><observation moodCode="EVN" classCode="OBS"> <templateId root="2.16.840.1.239594.10.20.22.4.2" /> <id nullFlavor ="NA" /> <code codeSystem="local" code=" 100.1450" displayName="EOSINOPHILS # (AUTO)" /> < statusCode code="completed" /> <effectiveTime value=& quot;659136291199" /> <value unit="T/MM3" xsi:type ="PQ" value="0.2" /> <interpretationCode codeSystem="local" code="N" /> < referenceRange> <observationRange> <text> 0-0.5</text> </observationRange> </ referenceRange> </observation> </component> < component> <observation moodCode="EVN" classCode=" OBS"> <templateId root="2.16.840.1.136782.10.20.22.4.2& quot; /> <id nullFlavor="NA" /> <code codeSystem="local" code="100.1500" displayName=" BASOPHILS # (AUTO)" /> <statusCode code="completed" /> <effectiveTime value="666400843152" /> < value unit="T/MM3" xsi:type="PQ" value="0.1"/> <interpretationCode codeSystem="local" code="N&quot ; /><referenceRange> <observationRange> & lt;text>0-0.2</text> </observationRange> < /referenceRange> </observation> </component> < component> <observation moodCode="EVN" classCode=" OBS"> <templateId root="2.16.840.1.152611.10.20.22.4.2& quot; /> <id nullFlavor="NA" /> <code codeSystem="local" code="100.1525" displayName=" IMMATURE GRANULOCYTE # (AUTO)" /> <statusCode code=" completed" /> <effectiveTime value="281814231497" /> <value unit="T/MM3" xsi:type="PQ" value=& quot;0.03" /> <interpretationCode codeSystem="local" code= "N" /> <referenceRange> < observationRange> <text>0.00-0.03</text> </ observationRange> </referenceRange> </observation&gt ; </component> </organizer> </entry> <entry> <organizer moodCode="EVN" classCode="BATTERY"> <templateId root="2.16.840.1.958281.10.20.22.4.1" /> < id nullFlavor="NA" /> <code codeSystem="local" code="LBMP" displayName="L200.0050" /> < statusCode code="completed" /> <component> < observation moodCode="EVN" classCode="OBS"> < templateId root="2.16.840.1.481420.10.20.22.4.2" /> <id nullFlavor="NA" /> <code codeSystem="local" code="200.0097" displayName="ICTERUS" /> < statusCode code="completed"/> <effectiveTime value=& quot;284478999593" /> <value unit="" xsi:type=& quot;PQ" value="< 2" /> < interpretationCode codeSystem="local" code="N" /> <referenceRange> <observationRange> < text>0-7</text> </observationRange> </ referenceRange> </observation> </component> < component> <observation moodCode="EVN" classCode=" OBS"> <templateId root="2.16.840.1.965093.10.20.22.4.2& quot; /> <id nullFlavor="NA" /> <code codeSystem="local" code="200.0098" displayName=" HEMOLYSIS" /> <statusCode code="completed" /> <effectiveTime value="823461749759" /> < value unit="" xsi:type="PQ" value="43" /> <interpretationCode codeSystem="local" code="H" /&gt ; <referenceRange> <observationRange> <text>0-25</text> </observationRange> </referenceRange> </observation> </component> & lt;/organizer> </entry> <entry> <organizer moodCode=&quot ;EVN" classCode="BATTERY"> <templateId root=" 2.16.840.1.689896.10.20.22.4.1" /> <id nullFlavor="NA&quot ; /> <code codeSystem="local" code="LSTONE-A" displayName="L750.8400" /> <statusCode code="completed " /> <component> <observation moodCode="EVN& quot; classCode="OBS"> <templateId root=" 2.16.840.1.772241.10.20.22.4.2" /> <id nullFlavor="NA& quot; /> <code codeSystem="local" code="750.8402& quot; displayName="STONE SOURCE" /> <statusCode code=& quot;completed" /> <effectiveTime value="330169277388& quot; /> <value unit="" xsi:type="PQ" value=& quot;Kidney" /> <interpretationCode codeSystem="local" code="N" /> <referenceRange> < observationRange> <text /> </ observationRange> </referenceRange> </observation&gt ; </component> </organizer> </entry> <entry> <organizer moodCode="EVN" classCode="BATTERY"> <templateId root="2.16.840.1.868334.10.20.22.4.1" /> <id nullFlavor="NA" /> <code codeSystem="local" code= "LBGM" displayName="L900.0530" /> <statusCode code="completed" /> <component> <observation moodCode="EVN" classCode="OBS"> <templateId root=& quot;2.16.840.1.841616.10.20.22.4.2" /> <id nullFlavor=&quot ;NA" /> <code codeSystem="local" code=" 900.0530" displayName="GLUCOMETER" /> <statusCode code="completed" /> <effectiveTime value=" 191075279154" /> <value unit="mg/dL" xsi:type=& quot;PQ" value="175" /> <interpretationCode codeSystem="local" code="H" /> < referenceRange> <observationRange> <text>65 -110</text> </observationRange> </ referenceRange> </observation> </component> </ organizer> </entry> <entry> <organizer moodCode="EVN " classCode="BATTERY"> <templateId root=" 2.16.840.1.763821.10..22.4.1" /> <id nullFlavor="NA&quot ; /> <code codeSystem="local" code="MCUBLOOD" displayName="M110.0195" /> <statusCode code="completed " /> <component> <observation moodCode="EVN& quot; classCode="OBS"> <templateId root=" 2.16.840.1.819558.10.20.22.4.2" /> <id nullFlavor="NA& quot; /> <code codeSystem="local" code="110.0200" displayName="ANTI-D" /> <statusCode code=" completed" /> <effectiveTime value="237415632586" /> <value unit="" xsi:type="PQ" value=" NO GROWTH AFTER 5 DAYS" /> <referenceRange> & lt;observationRange> <text /> </observationRange > </referenceRange> </observation> </component& gt; </organizer> </entry> <entry> <organizer moodCode= "EVN" classCode="BATTERY"> <templateId root=&quot ;2.16.840.1.815178.10..22.4.1" /> <id nullFlavor="NA&quot ; /> <code codeSystem="local" code="LCMP" displayName="L200.0020" /> <statusCode code="completed " /> <component> <observation moodCode="EVN& quot; classCode="OBS"> <templateId root=" 2.16.840.1.646712.10.20.22.4.2" /> <id nullFlavor="NA& quot; /> <code codeSystem="local" code="200.0097& quot; displayName="ICTERUS" /> <statusCode code=" completed" /> <effectiveTime value="168125569090" /> <value unit="" xsi:type="PQ" value="& amp;lt; 2" /> <interpretationCode codeSystem="local" code="N" /> <referenceRange> < observationRange> <text>0-7</text> </ observationRange> </referenceRange> </observation&gt ; </component> <component> <observation moodCode ="EVN" classCode="OBS"> <templateId root=& quot;2.16.840.1.721057.10.20.22.4.2" /> <id nullFlavor=&quot ;NA" /> <code codeSystem="local" code=" 200.0098" displayName="HEMOLYSIS" /> <statusCode code="completed" /> <effectiveTime value=" 978271568455" /> <value unit="" xsi:type="PQ& quot; value="26" /> <interpretationCode codeSystem=& quot;local" code="H" /> <referenceRange> <observationRange> <text>0-25</text> </observationRange> </referenceRange> </ observation> </component> </organizer> </entry> & lt;entry> <organizer moodCode="EVN" classCode="BATTERY& quot;> <templateId root="2.16.840.1.805320.10.20.22.4.1" /&gt ; <id nullFlavor="NA" /> <code codeSystem=" local" code="LTROPIH" displayName="L200.1848" /> <statusCode code="completed" /> <component> &lt ;observation moodCode="EVN" classCode="OBS"> &lt ;templateId root="2.16.840.1.808804.10.20.22.4.2" /> < id nullFlavor="NA" /> <code codeSystem="local" code="200.1850" displayName="TROPONIN I" /> < statusCode code="completed" /> <effectiveTime value=& quot;384790702067" /> <value unit="ng/ml" xsi:type ="PQ" value="0.015" /> <interpretationCode codeSystem="local" code="N" /> < referenceRange> <observationRange> <text> 0-0.12</text> </observationRange> </ referenceRange></observation> </component> </organizer > </entry> <entry><organizer moodCode="EVN" classCode="BATTERY"> <templateId root=" 2.16.840.1.702579.10.20.22.4.1" /> <id nullFlavor="NA&quot ; /> <code codeSystem="local" code="LLACTATEV" displayName="L200.7" /> <statusCode code="completed& quot; /> <component> <observation moodCode="EVN& quot; classCode="OBS"> <templateId root=" 2.16.840.1.322912.10.20.22.4.2" /> <id nullFlavor="NA& quot; /> <code codeSystem="local" code="200& quot; displayName="LACTATE - LACTIC ACID, VENOUS" /> < statusCode code="completed" /> <effectiveTime value=& quot;635745390042" /> <value unit="MMOL/L" xsi: type="PQ" value="6.0" /> <interpretationCode codeSystem="local" code="PH" /> < referenceRange> <observationRange> <text> 0.6-2.2</text> </observationRange> </ referenceRange> </observation> </component> </ organizer> </entry> <entry> <organizer moodCode="EVN " classCode="BATTERY"> <templateId root=" 2.16.840.1.046358.10.20.22.4.1" /> <id nullFlavor="NA&quot ; /> <code codeSystem="local" code="LPROCALC" displayName="L200.2068" /> <statusCode code="completed " /> <component> <observation moodCode="EVN& quot; classCode="OBS"> <templateId root=" 2.16.840.1.949199.10.20.22.4.2" /> <id nullFlavor="NA& quot; /> <code codeSystem="local" code="200.2068& quot; displayName="PROCALCITONIN" /> <statusCode code=& quot;completed" /> <effectiveTime value="055437595495& quot;/> <value unit="NG/ML" xsi:type="PQ" value="34.03" /> <interpretationCode codeSystem=" local" code="PH" /> <referenceRange> <observationRange> <text /> </ observationRange> </referenceRange> </observation&gt ; </component> </organizer> </entry> <entry> <organizer moodCode="EVN" classCode="BATTERY"> <templateId root="2.16.840.1.757515.10.20.22.4.1" /> < id nullFlavor="NA" /> <code codeSystem="local" code="LCBC" displayName="L100.0050" /> < statusCode code="completed" /> <component> < observation moodCode="EVN" classCode="OBS"> < templateId root="2.16.840.1.069877.10.20.22.4.2" /> < id nullFlavor="NA" /> <code codeSystem="local&quot ; code="100.0150" displayName="WBC - WHITE BLOOD COUNT" /&gt ; <statusCode code="completed" /> < effectiveTime value="578101082092" /> <value unit=&quot ;T/MM3" xsi:type="PQ" value="20.8" /> < interpretationCodecodeSystem="local" code="H" /> <referenceRange> <observationRange> < text>4.5-11.0</text> </observationRange> < /referenceRange> </observation> </component> &lt ;component> <observation moodCode="EVN" classCode=" OBS"> <templateId root="2.16.840.1.825577.10.20.22.4.2& quot; /> <id nullFlavor="NA" /> <code codeSystem="local" code="100.0250" displayName="RED BLOOD COUNT" /> <statusCode code="completed" /&gt ; <effectiveTime value="847121701999" /> < value unit="M/MM3" xsi:type="PQ" value="4.26" /&gt ; <interpretationCode codeSystem="local" code="N&quot ; /> <referenceRange> <observationRange> <text>4.00-5.20</text> </observationRange> </referenceRange> </observation> </component& gt; <component> <observation moodCode="EVN" classCode="OBS"> <templateId root=" 2.16.840.1.087904.10.20.22.4.2" /> <id nullFlavor="NA& quot; /> <code codeSystem="local" code="100.0300& quot; displayName="HGB - HEMOGLOBIN" /> <statusCode code="completed" /> <effectiveTime value=" 477227912817" /> <value unit="GM/DL" xsi:type=& quot;PQ" value="11.6" /> <interpretationCode codeSystem="local" code="L" /> < referenceRange> <observationRange> <text> 12-16</text> </observationRange> </ referenceRange> </observation> </component> < component> <observation moodCode="EVN" classCode=" OBS"> <templateId root="2.16.840.1.327544.10.20.22.4.2& quot; /> <id nullFlavor="NA" /> <code codeSystem="local" code="100.0400" displayName="HCT - HEMATOCRIT" /> <statusCode code="completed" /> <effectiveTime value="850119621760" /> < value unit="%" xsi:type="PQ" value="37.5" /> <interpretationCode codeSystem="local" code="N& quot; /> <referenceRange> <observationRange> <text>36-46</text> </observationRange> </referenceRange> </observation> </component& gt; <component> <observation moodCode="EVN" classCode="OBS"> <templateId root=" 2.16.840.1.050849.10.20.22.4.2" /> <id nullFlavor="NA" / > <code codeSystem="local" code="100.0550" displayName="MEAN CORPUSCULAR VOLUME" /> <statusCode code="completed" /> <effectiveTime value=" 717122350288" /> <value unit="UM3" xsi:type=" PQ" value="88.0" /> <interpretationCode codeSystem ="local" code="N" /> <referenceRange> <observationRange> <text>80-100</text> </observationRange> </referenceRange> </ observation> </component> <component> < observation moodCode="EVN" classCode="OBS"> < templateId root="2.16.840.1.507676.10.20.22.4.2" /> < id nullFlavor="NA" /> <code codeSystem="local&quot ; code="100.0600" displayName="MEAN CORPUSCULAR HGB" /> <statusCode code="completed" /> < effectiveTime value="055915223179" /> <value unit=&quot ;UUG" xsi:type="PQ" value="27.2" /> < interpretationCode codeSystem="local" code="N" /> <referenceRange> <observationRange> < text>26-34</text> </observationRange> </ referenceRange> </observation> </component> < component> <observation moodCode="EVN" classCode="OBS& quot;> <templateId root="2.16.840.1.834185.10.20.22.4.2&quot ; /> <id nullFlavor="NA" /> <code codeSystem="local" code="100.0650" displayName="MEAN CORPUSCULAR HGB CONC([facility]" /> <statusCode code=" completed" /> <effectiveTime value="371421588605" /> <value unit="GM/DL" xsi:type="PQ" value=& quot;30.9" /> <interpretationCode codeSystem="local& quot; code="L" /> <referenceRange> < observationRange> <text>31-37</text> </ observationRange> </referenceRange> </observation&gt ; </component> <component> <observation moodCode ="EVN" classCode="OBS"> <templateId root=& quot;2.16.840.1.111359.10.20.22.4.2" /> <id nullFlavor=&quot ;NA" /> <code codeSystem="local" code=" 100.0750" displayName="RDW STANDARD DEVIATION" /> &lt ;statusCode code="completed" /> <effectiveTime value=& quot;518077281363" /> <value unit="FL" xsi:type=& quot;PQ" value="52.4" /> <interpretationCode codeSystem="local" code="H" /> < referenceRange> <observationRange> <text> 36.9-50.2</text> </observationRange> </ referenceRange> </observation> </component> < component> <observation moodCode="EVN" classCode=" OBS"> <templateId root="2.16.840.1.637586.10.20.22.4.2& quot; /> <id nullFlavor="NA" /> <code codeSystem="local" code="100.0850" displayName="PLT - PLATELET COUNT" /><statusCode code="completed" /> <effectiveTime value="153164402493" /> <value unit="T/MM3" xsi:type="PQ" value="296" /> <interpretationCode codeSystem="local" code="N" /&gt ; <referenceRange> <observationRange> <text>130-400</text> </observationRange> </referenceRange> </observation> </component> </organizer> </entry> <entry> <organizer moodCode=& quot;EVN" classCode="BATTERY"> <templateId root=" 2.16.840.1.982372.10.20.22.4.1" /> <id nullFlavor="NA&quot ; /> <code codeSystem="local" code="LDIFFM" displayName="L100.0105" /> <statusCode code="completed " /> <component> <observation moodCode="EVN& quot; classCode="OBS"> <templateId root=" 2.16.840.1.795071.10.20.22.4.2" /> <id nullFlavor="NA& quot; /> <code codeSystem="local" code="100.1650& quot; displayName="NEUTROPHILS % (MANUAL)" /> < statusCode code="completed" /> <effectiveTime value=& quot;114767380754" /> <value unit="%" xsi: type="PQ" value="71.0" /> < interpretationCode codeSystem="local" code="H" /> <referenceRange> <observationRange> < text>33-66</text> </observationRange> </ referenceRange> </observation> </component> < component> <observation moodCode="EVN" classCode=" OBS"> <templateId root="[id number]& quot; /> <id nullFlavor="NA" /> <code codeSystem="local" code="100.1750" displayName="BAND NEUTROPHILS %" /> <statusCode code="completed& quot; /> <effectiveTime value="[id number]" />< value unit="%" xsi:type="PQ" value="25.0" /> <interpretationCode codeSystem="local" code="DH " /> <referenceRange> <observationRange&gt ; <text>0-6</text> </observationRange&gt ; </referenceRange> </observation> </ component> </organizer> </entry> <entry> < organizer moodCode="EVN" classCode="BATTERY"> < templateId root="[id number]"/> <id nullFlavor="NA" /> <code codeSystem="local" code= "LUADMRC" displayName="L600.0175" /> <statusCode code="completed" /> <component> <observation moodCode="EVN" classCode="OBS"> <templateId root="2.16.840.1.141576.10.20.22.4.2" /> <id nullFlavor ="NA" /> <code codeSystem="local" code=" 600.0500" displayName="SPECIMEN TYPE, URINE" /> < statusCode code="completed" /> <effectiveTime value=& quot;056488109636" /> <value unit="" xsi:type=& quot;PQ" value="CLEANCATCH-MIDSTREAM" /> < interpretationCode codeSystem="local" code="N" /> <referenceRange> <observationRange> < text /> </observationRange> </referenceRange> </observation> </component> <component> <observation moodCode="EVN" classCode="OBS"> <templateId root="2..840.1.127750.10..22.4.2" /> <id nullFlavor="NA" /> <code codeSystem=" local" code="600.0550" displayName="COLOR,URINE" /> <statusCode code="completed" /> < effectiveTime value="099033570767" /> <value unit=&quot ;" xsi:type="PQ" value="YELLOW" /> < interpretationCode codeSystem="local" code="N" /> <referenceRange> <observationRange> < text>YELLOW</text> </observationRange> </ referenceRange> </observation> </component> < component> <observation moodCode="EVN" classCode=" OBS"> <templateId root="2.16.840.1.914049.10.20.22.4.2& quot; /> <id nullFlavor="NA" /> <code codeSystem="local" code="600.0600" displayName=" TURBIDITY, URINE" /> <statusCode code="completed" /> <effectiveTime value="568506858325" /> < value unit="" xsi:type="PQ" value="CLOUDY" /> <interpretationCode codeSystem="local" code="N" /> <referenceRange> <observationRange> <text>CLEAR</text> </observationRange> </referenceRange> </observation> </component> <component> <observation moodCode="EVN" classCode=& quot;OBS"> <templateId root=" 2.16.840.1.536230.10.20.22.4.2" /> <id nullFlavor="NA&quot ; /> <code codeSystem="local" code="600.0650&quot ; displayName="SPECIFIC GRAVITY,URINE" /> <statusCode code="completed" /> <effectiveTime value=" 828280662428" /> <value unit="" xsi:type="PQ& quot; value="1.020" /> <interpretationCode codeSystem=& quot;local" code="N" /> <referenceRange> <observationRange> <text>1.015-1.025</text> </observationRange> </referenceRange> </ observation> </component> <component> < observation moodCode="EVN" classCode="OBS"> < templateId root="2.16.840.1.994909.10.20.22.4.2" /> < id nullFlavor="NA" /> <code codeSystem="local&quot ; code="600.0700"displayName="PH, URINE - DIPSTICK" /> <statusCode code="completed" /> < effectiveTime value="498812149829" /> <value unit=&quot ;" xsi:type="PQ" value="6.0" /> < interpretationCode codeSystem="local" code="N" /> <referenceRange> <observationRange> < text>5.0-8.0</text> </observationRange> </ referenceRange> </observation> </component> < component> <observation moodCode="EVN" classCode="OBS "> <templateId root="2.16.840.1.853232.10.20.22.4.2& quot; /> <id nullFlavor="NA" /> <code codeSystem="local" code="600.0750" displayName=" LEUKOCYTE ESTERASE ,URINE" /> <statusCode code=" completed" /> <effectiveTime value="507342978968" /> <value unit="" xsi:type="PQ" value="2 +" /> <interpretationCode codeSystem="local" code= "Aa" /> <referenceRange> < observationRange> <text>NEGATIVE</text> </ observationRange> </referenceRange> </observation&gt ; </component> <component> <observation moodCode ="EVN" classCode="OBS"> <templateId root=& quot;2.16.840.1.514846.10.20.22.4.2" /> <id nullFlavor=&quot ;NA" /> <codecodeSystem="local" code=" 600.0800" displayName="NITRITE,URINE" /> <statusCode code="completed" /> <effectiveTime value=" 417147477647" /> <value unit="" xsi:type="PQ& quot; value="NEGATIVE" /> <interpretationCode codeSystem="local" code="N" /> <referenceRange&gt ; <observationRange> <text>NEGATIVE</text > </observationRange> </referenceRange> </observation> </component> <component> & lt;observation moodCode="EVN" classCode="OBS"> & lt;templateId root="2.16.840.1.128276.10.20.22.4.2" /> &lt ;id nullFlavor="NA" /> <code codeSystem="local& quot; code="600.0850" displayName="PROTEIN,URINE - DIPSTICK&quot ; /> <statusCode code="completed" /> < effectiveTime value="292250185970" /> <value unit=&quot ;" xsi:type="PQ" value="1+" /> < interpretationCode codeSystem="local" code="Aa" /> <referenceRange> <observationRange> < text>NEGATIVE</text></observationRange> </ referenceRange> </observation> </component> < component> <observation moodCode="EVN" classCode=" OBS"> <templateId root="2.16.840.1.914202.10.20.22.4.2& quot; /> <id nullFlavor="NA" /> <code codeSystem="local" code="600.0900" displayName="GLUCOSE , URINE - DIPSTICK" /> <statusCode code="completed&quot ; /> <effectiveTime value="710599015877" /> <value unit="" xsi:type="PQ" value="NEGATIVE&quot ; /> <interpretationCode codeSystem="local" code=" N" /> <referenceRange> <observationRange> <text>NEGATIVE</text> </observationRange> </referenceRange> </observation> </component& gt;<component> <observation moodCode="EVN" classCode=& quot;OBS"> <templateId root="2.16.840.1.400846.10.20.22.4.2& quot; /> <id nullFlavor="NA" /> <code codeSystem="local" code="600.0950" displayName="KETONES ,URINE - DIPSTICK" /> <statusCode code="completed&quot ; /> <effectiveTime value="274299834009" /> <value unit="" xsi:type="PQ" value="NEGATIVE&quot ; /> <interpretationCode codeSystem="local" code=" N" /> <referenceRange> <observationRange&gt ; <text>NEGATIVE</text> </ observationRange> </referenceRange> </observation> </component> <component> <observation moodCode=& quot;EVN" classCode="OBS"> <templateId root=" 2.16.840.1.970861.10.20.22.4.2" /> <id nullFlavor="NA& quot; /> <code codeSystem="local" code="600.1000& quot; displayName="UROBILINOGEN,URINE" /> <statusCode code="completed" /> <effectiveTime value=" 943144111249" /> <value unit="EU/DL" xsi:type=& quot;PQ" value="0.2" /> <interpretationCode codeSystem="local" code="N" /> < referenceRange> <observationRange> <text>NORMAL</ text> </observationRange> </referenceRange> </observation> </component> <component> <observation moodCode="EVN" classCode="OBS"> <templateId root="2.16.840.1.412740.10.20.22.4.2" /> <id nullFlavor="NA" /> <code codeSystem=" local" code="600.1050" displayName="BILIRUBIN,URINE - DIPSTICK" /> <statusCode code="completed" /> <effectiveTime value="371613067267" /> < value unit="" xsi:type="PQ" value="NEGATIVE" /&gt ; <interpretationCode codeSystem="local" code="N&quot ; /> <referenceRange> <observationRange> <text>NEGATIVE</text> </observationRange&gt ; </referenceRange> </observation> </ component> <component> <observation moodCode="EVN& quot; classCode="OBS"> <templateId root=" 2.16.840.1.845513.10.20.22.4.2" /> <id nullFlavor="NA& quot; /> <code codeSystem="local" code="600.1100& quot; displayName="BLOOD, URINE" /> <statusCode code=& quot;completed" /> <effectiveTime value="588144812023& quot; /> <value unit="" xsi:type="PQ" value=& quot;2+" /> <interpretationCode codeSystem="local&quot ; code="Aa" /> <referenceRange> < observationRange> <text>NEGATIVE</text> & lt;/observationRange> </referenceRange> </ observation> </component> <component> < observation moodCode="EVN" classCode="OBS"> < templateId root="2.16.840.1.009177.10.20.22.4.2" /> < id nullFlavor="NA" /> <code codeSystem="local&quot ; code="600.1200" displayName="WBC,URINE" /> &lt ;statusCode code="completed" /> <effectiveTime value=& quot;726152968295" /> <value unit="/HPF" xsi:type= "PQ" value="50-200" /> <interpretationCode codeSystem="local" code="Doran" /> < referenceRange> <observationRange> <text> 0-5</text> </observationRange> </referenceRange> </observation> </component> <component> & lt;observation moodCode="EVN" classCode="OBS"> & lt;templateIdroot="2.16.840.1.467905.10.20.22.4.2" /> < id nullFlavor="NA" /> <code codeSystem="local&quot ; code="600.1225" displayName="WBC CLUMPS,URINE" /> <statusCode code="completed" /> <effectiveTime value="783560180961" /> <value unit="" xsi: type="PQ"value="FEW" /> <interpretationCode codeSystem="local" code="N" /> < referenceRange> <observationRange> <text /& gt; </observationRange> </referenceRange> </observation> </component> <component> &lt ;observation moodCode="EVN" classCode="OBS"> &lt ;templateId root="2.16.840.1.674143.10.20.22.4.2"/> < id nullFlavor="NA" /> <code codeSystem="local&quot ;code="600.1250" displayName="RBC,URINE" /> < statusCode code="completed" /> <effectiveTime value=& quot;976070791543" /> <value unit="/HPF" xsi:type= "PQ" value="1-3" /> <interpretationCode codeSystem="local" code="N" /> < referenceRange> <observationRange> <text>0-3< /text> </observationRange> </referenceRange> </observation> </component> <component> <observation moodCode="EVN" classCode="OBS"> < templateId root="2.16.840.1.170170.10.20.22.4.2" /> < id nullFlavor="NA" /> <code codeSystem="local&quot ; code="600.1300" displayName="SQUAMOUS EPITHELIAL CELL,UR" /> <statusCode code="completed" /> < effectiveTime value="408087430276" /> <value unit=&quot ;" xsi:type="PQ" value="0-5" /> < interpretationCode codeSystem="local" code="N" /> <referenceRange> <observationRange> < text /> </observationRange> </referenceRange&gt ; </observation> </component> <component> <observation moodCode="EVN" classCode="OBS"> <templateId root="2.16.840.1.500972.10.20.22.4.2" /> <id nullFlavor="NA" /> <code codeSystem=" local" code="600.1450" displayName="BACTERIA,URINE" /& gt; <statusCode code="completed" /> < effectiveTime value="769049998170" /> <value unit=&quot ;" xsi:type="PQ" value="4+" /> < interpretationCode codeSystem="local" code="Doran" /> <referenceRange> <observationRange> < text>NEGATIVE</text> </observationRange> < /referenceRange> </observation> </component> &lt ;component> <observation moodCode="EVN" classCode=" OBS"> <templateId root="2.16.840.1.638967.10.20.22.4.2& quot; /> <id nullFlavor="NA" /> <code codeSystem="local" code="600.2400" displayName=" CULTURE SET UP,URINE" /> <statusCode code="completed& quot; /> <effectiveTime value="229339417059" /> < value unit="" xsi:type="PQ" value="CULT REFLEXED & amp;SETUP" /> <interpretationCode codeSystem="local& quot; code="N" /> <referenceRange> < observationRange> <text /> </ observationRange> </referenceRange> </observation&gt ; </component> </organizer> </entry> <entry> <organizer moodCode="EVN"classCode="BATTERY"> <templateId root="2.16.840.1.246535.10.20.22.4.1" /> < id nullFlavor="NA" /> <code codeSystem="local" code="MCUURINE" displayName="M153.0000" /> < statusCode code="completed" /> <component> < observation moodCode="EVN" classCode="OBS"> < templateId root="2.16.840.1.286361.10.20.22.4.2" /> < id nullFlavor="NA" /> <code codeSystem="local&quot ; code="307.0000" displayName="URINE CULTURE." /> <statusCode code="completed" /> <effectiveTime value="028865064173" /> <value unit="CFU/ml" xsi:type="PQ" value=" " /> < interpretationCode codeSystem="local" code="S" /> <referenceRange> <observationRange> < text /> </observationRange> </referenceRange&gt ; </observation> </component> </organizer> &lt ;/entry> <entry> <organizer moodCode="EVN" classCode=& quot;BATTERY"> <templateId root=" 2.16.840.1.092374.10.20.22.4.1" /> <id nullFlavor="NA&quot ; /> <code codeSystem="local" code="LBGM" displayName="L900.0530" /> <statusCode code="completed " /> <component> <observation moodCode="EVN& quot; classCode="OBS"> <templateId root=" 2.16.840.1.022199.10.20.22.4.2" /> <id nullFlavor="NA& quot; /><code codeSystem="local" code="900.0530" displayName="GLUCOMETER" /> <statusCode code=" completed" /> <effectiveTime value="856791158840" /> <value unit="mg/dL" xsi:type="PQ" value=& quot;278" /> <interpretationCode codeSystem="local&quot ; code="H" /> <referenceRange> < observationRange> <text>65-110</text> &lt ;/observationRange> </referenceRange> </observation& gt; </component> </organizer> </entry> <entry&gt ; <organizer moodCode="EVN" classCode="BATTERY"> <templateId root="2.16.840.1.478324.10.20.22.4.1" /> & lt;id nullFlavor="NA" /> <code codeSystem="local&quot ; code="LLACTATEV" displayName="L200.2066" /> < statusCode code="completed" /> <component> < observation moodCode="EVN" classCode="OBS"> < templateId root="2.16.840.1.488020.10.20.22.4.2" /> < id nullFlavor="NA" /> <code codeSystem="local&quot ; code="200" displayName="LACTATE - LACTIC ACID, VENOUS&quot ; /> <statusCode code="completed" /> < effectiveTime value="322699371885" /> <value unit=&quot ;MMOL/L" xsi:type="PQ" value="2.1" /> < interpretationCode codeSystem="local" code="N" /> &lt ;referenceRange> <observationRange> <text&gt ;0.6-2.2</text> </observationRange> </ referenceRange> </observation> </component> </ organizer> </entry> <entry> <organizer moodCode="EVN " classCode="BATTERY"> <templateId root=" 2.16.840.1.852819.10.20.22.4.1" /> <id nullFlavor="NA&quot ; /> <code codeSystem="local" code="LPROCALC" displayName="L200.2067" /> <statusCode code="completed " /> <component> <observation moodCode="EVN& quot; classCode="OBS"> <templateId root=" 2.16.840.1.175791.10.20.22.4.2" /> <id nullFlavor="NA& quot; /> <code codeSystem="local" code="200& quot; displayName="PROCALCITONIN" /> <statusCode code=& quot;completed" /> <effectiveTime value="009240556837& quot; /> <value unit="NG/ML" xsi:type="PQ" value=& quot;35.40" /> <interpretationCode codeSystem="local& quot; code="PH" /> <referenceRange> < observationRange> <text /> </ observationRange> </referenceRange> </observation&gt ; </component> </organizer> </entry> <entry> <organizer moodCode="EVN" classCode="BATTERY"> <templateId root="2.16.840.1.309156.10.20.22.4.1" /> < id nullFlavor="NA" /> <code codeSystem="local" code="LBGM" displayName="L900.0530" /> < statusCode code="completed" /> <component> < observation moodCode="EVN" classCode="OBS"> < templateId root="2.16.840.1.147698.10.20.22.4.2" /> < id nullFlavor="NA" /> <code codeSystem="local&quot ; code="900.0530" displayName="GLUCOMETER" /> & lt;statusCode code="completed" /> <effectiveTime value= "453855712060" /> <value unit="mg/dL" xsi: type="PQ" value="307" /> <interpretationCode codeSystem="local" code="H" /> < referenceRange> <observationRange> <text>65- 110</text> </observationRange> </ referenceRange> </observation> </component> </ organizer> </entry><entry> <organizer moodCode="EVN& quot; classCode="BATTERY"> <templateId root=" 2.16.840.1.928220.10.20.22.4.1" /> <id nullFlavor="NA" /> <code codeSystem="local" code="LBGM" displayName="L900.0530" /> <statusCode code="completed " /> <component> <observation moodCode="EVN& quot; classCode="OBS"> <templateId root=" 2.16.840.1.235567.10.20.22.4.2" /> <id nullFlavor="NA& quot; /> <code codeSystem="local" code="900.0530& quot; displayName="GLUCOMETER" /> <statusCode code=&quot ;completed" /> <effectiveTime value="345628036892&quot ; /> <value unit="mg/dL" xsi:type="PQ" value= "285" /> <interpretationCode codeSystem="local& quot; code="H" /> <referenceRange> < observationRange> <text>65-110</text> &lt ;/observationRange> </referenceRange> </observation& gt; </component> </organizer> </entry> <entry&gt ; <organizermoodCode="EVN" classCode="BATTERY"> <templateId root="2.16.840.1.920598.10.20.22.4.1" /> &lt ;id nullFlavor="NA" /> <code codeSystem="local" code="LBMP" displayName="L200.0050" /> < statusCode code="completed" /> <component> < observation moodCode="EVN" classCode="OBS"> < templateId root="2.16.840.1.476161.10.20.22.4.2" /> < id nullFlavor="NA" /> <code codeSystem="local&quot ; code="200.0097" displayName="ICTERUS" /> < statusCode code="completed" /> <effectiveTime value=& quot;587941231515" /> <value unit="" xsi:type=& quot;PQ" value="< 2" /> < interpretationCode codeSystem="local" code="N" /> <referenceRange> <observationRange> <text >0-7</text> </observationRange> </ referenceRange> </observation> </component> < component> <observation moodCode="EVN" classCode=" OBS"> <templateId root="2.16.840.1.766528.10.20.22.4.2&quot ; /> <id nullFlavor="NA" /> <code codeSystem="local" code="200.0098" displayName=" HEMOLYSIS" /> <statusCode code="completed" /> <effectiveTime value="805343168276" /> < value unit="" xsi:type="PQ" value="< 15" /& gt; <interpretationCode codeSystem="local" code="N& quot; /> <referenceRange> <observationRange> <text>0-25</text> </observationRange&gt ; </referenceRange> </observation> </ component> </organizer> </entry> <entry> < organizer moodCode="EVN" classCode="BATTERY"> < templateId root="2.16.840.1.997052.10.20.22.4.1" /> <id nullFlavor="NA" /> <code codeSystem="local" code= "LTROPIH" displayName="L200.1848" /> <statusCode code="completed" /> <component> <observation moodCode="EVN" classCode="OBS"> <templateId root="2.16.840.1.582441.10.20.22.4.2" /> <id nullFlavor ="NA" /> <code codeSystem="local" code="200.0098 " displayName="HEMOLYSIS" /> <statusCode code=& quot;completed" /> <effectiveTime value="837650682424& quot; /> <value unit="" xsi:type="PQ" value=& quot;< 15" /> <interpretationCode codeSystem=" local" code="N"/> <referenceRange> & lt;observationRange> <text>0-25</text> & lt;/observationRange> </referenceRange> </ observation> </component> </organizer> </entry> & lt;entry> <organizer moodCode="EVN" classCode="BATTERY& quot;> <templateId root="2.16.840.1.675748.10.20.22.4.1" /& gt; <id nullFlavor="NA" /> <code codeSystem=" local" code="LCBC" displayName="L100.0050" /> & lt;statusCode code="completed" /> <component> &lt ;observation moodCode="EVN" classCode="OBS"> &lt ;templateId root="2.16.840.1.676824.10.20.22.4.2" /> < id nullFlavor="NA" /> <code codeSystem="local&quot ; code="100.0150" displayName="WBC - WHITE BLOOD COUNT" /&gt ; <statusCode code="completed" /> < effectiveTime value="444143458469" /> <value unit=&quot ;T/MM3" xsi:type="PQ" value="11.8" /> < interpretationCode codeSystem="local" code="DH" /> <referenceRange> <observationRange> < text>4.5-11.0</text> </observationRange> < /referenceRange> </observation> </component> </ organizer> </entry> <entry> <organizer moodCode="EVN " classCode="BATTERY"> <templateId root=" 2.16.840.1.016778.10.20.22.4.1" /> <id nullFlavor="NA&quot ; /> <code codeSystem="local" code="LBGM" displayName="L900.0530" /> <statusCode code="completed " /> <component> <observation moodCode="EVN& quot; classCode="OBS"> <templateId root=" 2.16.840.1.898578.10.20.22.4.2" /> <id nullFlavor="NA& quot; /> <code codeSystem="local" code="900.0530& quot; displayName="GLUCOMETER" /> <statusCode code=& quot;completed" /> <effectiveTime value="200703207783& quot; /> <valueunit="mg/dL" xsi:type="PQ" value="253" /> <interpretationCode codeSystem=" local" code="H" /> <referenceRange> < observationRange> <text>65-110</text> &lt ;/observationRange> </referenceRange> </observation& gt; </component> </organizer> </entry> <entry&gt ; <organizer moodCode="EVN" classCode="BATTERY"> <templateId root="2.16.840.1.302311.10.20.22.4.1" /> & lt;id nullFlavor="NA" /> <code codeSystem="local&quot ; code="LBGM" displayName="L900.0530" /> < statusCode code="completed" /> <component> < observation moodCode="EVN" classCode="OBS"> < templateId root="2.16.840.1.026043.10.20.22.4.2" /> < id nullFlavor="NA" /> <code codeSystem="local&quot ; code="900.0530" displayName="GLUCOMETER" /> & lt;statusCode code="completed" /> <effectiveTime value= "380624835056" /> <value unit="mg/dL" xsi: type="PQ" value="256" /> <interpretationCode codeSystem="local" code="H" /> < referenceRange> <observationRange> <text>65- 110</text> </observationRange> </ referenceRange> </observation> </component> </ organizer> </entry><entry> <organizer moodCode="EVN& quot; classCode="BATTERY"> <templateId root=" 2.16.840.1.066997.10.20.22.4.1" /> <id nullFlavor="NA" /> <code codeSystem="local" code="LBGM" displayName="L900.0530" /> <statusCode code="completed " /> <component> <observation moodCode="EVN& quot; classCode="OBS"> <templateId root=" 2.16.840.1.543977.10.20.22.4.2" /> <id nullFlavor="NA& quot; /> <code codeSystem="local" code="900.0530& quot; displayName="GLUCOMETER" /> <statusCode code=&quot ;completed" /> <effectiveTime value="267348432419&quot ; /> <value unit="mg/dL" xsi:type="PQ" value= "236" /> <interpretationCode codeSystem="local& quot; code="H" /> <referenceRange> < observationRange> <text>65-110</text> &lt ;/observationRange> </referenceRange> </observation& gt; </component> </organizer> </entry> <entry&gt ; <organizermoodCode="EVN" classCode="BATTERY"> <templateId root="2.16.840.1.368173.10.20.22.4.1" /> &lt ;id nullFlavor="NA" /> <code codeSystem="local" code="LBGM" displayName="L900.0530" /> < statusCode code="completed" /> <component> < observation moodCode="EVN" classCode="OBS"> < templateId root="2.16.840.1.353171.10.20.22.4.2" /> < id nullFlavor="NA" /> <code codeSystem="local&quot ; code="900.0530" displayName="GLUCOMETER" /> & lt;statusCode code="completed" /> <effectiveTime value= "800179248300" /> <value unit="mg/dL" xsi: type="PQ" value="181" /> <interpretationCode codeSystem="local" code="H" /> < referenceRange> <observationRange> <text>65 -110</text> </observationRange> </ referenceRange> </observation> </component> </ organizer> </entry> <entry> <organizer moodCode="EVN " classCode="BATTERY"> <templateId root=" 2.16.840.1.698930.10.20.22.4.1" /> <id nullFlavor="NA&quot ; /> <code codeSystem="local" code="LBGM" displayName="L900.0530" /> <statusCode code="completed " /> <component> <observation moodCode="EVN& quot; classCode="OBS"> <templateId root=" 2.16.840.1.550093.10.20.22.4.2" /> <id nullFlavor="NA& quot; /> <code codeSystem="local" code="900.0530& quot; displayName="GLUCOMETER" /> <statusCode code=& quot;completed" /> <effectiveTime value="571577410646" / > <value unit="mg/dL"xsi:type="PQ" value=& quot;167" /> <interpretationCode codeSystem="local&quot ; code="H" /> <referenceRange> < observationRange> <text>65-110</text> &lt ;/observationRange> </referenceRange> </observation& gt; </component> </organizer> </entry> <entry&gt ; <organizer moodCode="EVN" classCode="BATTERY"> & lt;templateId root="2.16.840.1.015219.10.20.22.4.1" /> <id nullFlavor="NA" /> <code codeSystem="local" code= "LBMP" displayName="L200.0050" /> <statusCode code="completed" /> <component><observation moodCode= "EVN" classCode="OBS"> <templateId root=&quot ;2.16.840.1.448307.10.20.22.4.2" /> <id nullFlavor="NA& quot; /> <code codeSystem="local" code="200.0097" displayName="ICTERUS" /> <statusCode code=" completed" /> <effectiveTime value="317451661258" /> <value unit="" xsi:type="PQ" value="& amp;lt; 2" /> <interpretationCode codeSystem="local& quot; code="N" /> <referenceRange> < observationRange> <text>0-7</text> </ observationRange> </referenceRange> </observation&gt ; </component> <component> <observation moodCode ="EVN" classCode="OBS"> <templateId root=& quot;2.16.840.1.845836.10.20.22.4.2" /> <id nullFlavor=&quot ;NA" /> <code codeSystem="local" code=" 200.0098" displayName="HEMOLYSIS" /> <statusCode code="completed" /> <effectiveTime value=" 995931734785" /><value unit="" xsi:type="PQ" value="< 15" /> <interpretationCode codeSystem=& quot;local" code="N" /> <referenceRange> <observationRange> <text>0-25</text> </observationRange> </referenceRange> </ observation> </component> </organizer> </entry> & lt;entry> <organizer moodCode="EVN" classCode="BATTERY& quot;> <templateId root="2.16.840.1.227109.10.20.22.4.1" /& gt; <id nullFlavor="NA" /> <code codeSystem=" local" code="LCBC" displayName="L100.0050" /> & lt;statusCode code="completed" /> <component> &lt ;observation moodCode="EVN" classCode="OBS"> &lt ;templateId root="2.16.840.1.116233.10.20.22.4.2" /> < id nullFlavor="NA" /> <code codeSystem="local&quot ; code="100.0150" displayName="WBC - WHITE BLOOD COUNT" /&gt ; <statusCode code="completed" /> < effectiveTime value="139480697388" /> <value unit=&quot ;T/MM3" xsi:type="PQ" value="9.9" /> < interpretationCode codeSystem="local" code="N" /> <referenceRange> <observationRange> < text>4.5-11.0</text> </observationRange> < /referenceRange> </observation> </component> &lt ;component> <observation moodCode="EVN" classCode=" OBS"> <templateId root="[id number]& quot; /> <id nullFlavor="NA" /> <code codeSystem="local" code="100.0250" displayName="RED BLOOD COUNT" /> <statusCode code="completed" /&gt ; <effectiveTime value="[id number]" /> < value unit="M/MM3" xsi:type="PQ" value="3.91" /&gt ; <interpretationCode codeSystem="local" code="L&quot ; /> <referenceRange> <observationRange> <text>4.00-5.20</text> </observationRange> </referenceRange> </observation> </component& gt; <component> <observation moodCode="EVN" classCode="OBS"> <templateId root=" 2.16.840.1.521090.10.20.22.4.2" /> <id nullFlavor="NA& quot; /> <code codeSystem="local" code="100.0300& quot; displayName="HGB - HEMOGLOBIN" /> <statusCode code="completed" /> <effectiveTime value=" 235226481794" /> <value unit="GM/DL" xsi:type=& quot;PQ" value="10.6" /> <interpretationCode codeSystem="local" code="L" /> < referenceRange> <observationRange> <text> 12-16</text> </observationRange> </ referenceRange> </observation> </component> < component> <observation moodCode="EVN" classCode=" OBS"> <templateId root="2.16.840.1.604171.10.20.22.4.2& quot; /> <id nullFlavor="NA" /> <code codeSystem="local" code="100.0400" displayName="HCT - HEMATOCRIT" /> <statusCode code="completed" /> <effectiveTime value="588372433143" /> < value unit="%" xsi:type="PQ" value="35.3" /> <interpretationCode codeSystem="local" code="DL& quot; /> <referenceRange> <observationRange> <text>36-46</text> </observationRange> </referenceRange> </observation> </component& gt; </organizer> </entry> <entry> <organizer moodCode="EVN" classCode="BATTERY"> <templateId root="2.16.840.1.340791.10.20.22.4.1" /> <id nullFlavor=& quot;NA" /> <code codeSystem="local" code="LBGM& quot; displayName="L900.0530" /> <statusCode code=" completed" /> <component> <observation moodCode=& quot;EVN" classCode="OBS"> <templateId root=" 2.16.840.1.234892.10.20.22.4.2" /> <id nullFlavor="NA" /> <code codeSystem="local" code="900.0530" displayName="GLUCOMETER" /> <statusCode code=" completed" /> <effectiveTime value="699672780151" /> <value unit="mg/dL" xsi:type="PQ" value=& quot;184" /> <interpretationCode codeSystem="local&quot ; code="H" /> <referenceRange> < observationRange> <text>65-110</text> &lt ;/observationRange> </referenceRange> </observation& gt; </component> </organizer> </entry> <entry&gt ; <organizer moodCode="EVN" classCode="BATTERY"> <templateId root="2.16.840.1.363159.10.20.22.4.1" /> & lt;idnullFlavor="NA" /> <code codeSystem="local" code="LTROPIH" displayName="L200.1848" /> < statusCode code="completed" /> <component> < observation moodCode="EVN" classCode="OBS">< templateId root="2.16.840.1.851443.10.20.22.4.2" /> < id nullFlavor="NA" /> <code codeSystem="local&quot ; code="200.0098" displayName="HEMOLYSIS" /> &lt ;statusCode code="completed" /> <effectiveTime value=& quot;139128034114" /> <value unit="" xsi:type=& quot;PQ" value="< 15" /> < interpretationCode codeSystem="local" code="N" /> <referenceRange> <observationRange> <text& gt;0-25</text> </observationRange> </ referenceRange> </observation> </component> </ organizer> </entry> <entry> <organizer moodCode="EVN " classCode="BATTERY"> <templateId root=" 2.16.840.1.390732.10.20.22.4.1" /> <id nullFlavor="NA&quot ; /> <code codeSystem="local" code="LBGM" displayName="L900.0530" /> <statusCode code="completed " /> <component> <observation moodCode="EVN& quot; classCode="OBS"> <templateId root=" 2.16.840.1.424256.10.20.22.4.2" /> <id nullFlavor="NA& quot; /> <code codeSystem="local" code="900.0530& quot; displayName="GLUCOMETER" /> <statusCode code=" completed" /> <effectiveTime value="792386197103" /> <value unit="mg/dL" xsi:type="PQ" value=& quot;209" /> <interpretationCode codeSystem="local&quot ; code="H" /> <referenceRange> < observationRange> <text>65-110</text> &lt ;/observationRange> </referenceRange> </observation& gt; </component> </organizer> </entry> <entry&gt ; <organizer moodCode="EVN" classCode="BATTERY"> <templateId root="2.16.840.1.532404.10.20.22.4.1" /> & lt;id nullFlavor="NA" /> <code codeSystem="local&quot ; code="LBGM" displayName="L900.0530" /> < statusCode code="completed" /> <component> < observation moodCode="EVN"classCode="OBS"> < templateId root="2.16.840.1.215489.10.20.22.4.2" /> < id nullFlavor="NA" /> <code codeSystem="local&quot ; code="900.0530" displayName="GLUCOMETER" /> & lt;statusCode code="completed" /> <effectiveTime value= "602894560924" /> <value unit="mg/dL" xsi: type="PQ" value="228" /> <interpretationCode codeSystem="local" code="H" /> < referenceRange> <observationRange> <text>65- 110</text> </observationRange> </ referenceRange> </observation> </component> </ organizer> </entry> <entry> <organizer moodCode="EVN " classCode="BATTERY"> <templateId root=" 2.16.840.1.852779.10.20.22.4.1" /> <id nullFlavor="NA" / > <code codeSystem="local" code="LBGM" displayName="L900.0530" /> <statusCode code="completed " /> <component> <observation moodCode="EVN&quot ; classCode="OBS"> <templateId root=" 2.16.840.1.157561.10.20.22.4.2" /> <id nullFlavor="NA& quot; /> <code codeSystem="local" code="900.0530& quot; displayName="GLUCOMETER" /> <statusCode code=& quot;completed" /> <effectiveTime value="125122426607" /& gt; <value unit="mg/dL" xsi:type="PQ" value=& quot;145" /> <interpretationCode codeSystem="local&quot ; code="H" /> <referenceRange> < observationRange> <text>65-110</text> &lt ;/observationRange> </referenceRange> </observation& gt; </component> </organizer> </entry> <entry&gt ; <organizer moodCode="EVN" classCode="BATTERY">&lt ;templateId root="2.16.840.1.976857.10.20.22.4.1" /> <id nullFlavor="NA" /> <code codeSystem="local" code= "LKH" displayName="L200.0148" /> <statusCode code ="completed" /> <component> <observation moodCode="EVN" classCode="OBS"> <templateId root="2.16.840.1.971897.10.20.22.4.2" /> <id nullFlavor ="NA" /> <code codeSystem="local" code="200.0098& quot; displayName="HEMOLYSIS" /> <statusCode code=&quot ;completed" /> <effectiveTime value="027337376555&quot ; /> <value unit="" xsi:type="PQ" value=&quot ;< 15" /> <interpretationCode codeSystem="local& quot; code="N" /> <referenceRange> < observationRange> <text>0-25</text> </ observationRange> </referenceRange> </observation&gt ; </component> </organizer> </entry> <entry> <organizer moodCode="EVN" classCode="BATTERY"> <templateId root="2.16.840.1.901749.10.20.22.4.1" /> < id nullFlavor="NA" /> <code codeSystem="local" code="LMAG" displayName="L200.2000" /> < statusCode code="completed" /> <component> < observation moodCode="EVN" classCode="OBS"> < templateId root="2.16.840.1.428640.10.20.22.4.2" /> < id nullFlavor="NA" /> <code codeSystem="local&quot ; code="200.2000" displayName="MAGNESIUM" /> &lt ;statusCode code="completed" /> <effectiveTime value=& quot;909463701473" /> <value unit="MG/DL" xsi:type=" PQ" value="1.5" /> <interpretationCode codeSystem= "local" code="L" /> <referenceRange> <observationRange> <text>1.6-2.3</text> </observationRange> </referenceRange> < /observation> </component> </organizer> </entry> <entry> <organizer moodCode="EVN" classCode="BATTERY& quot;> <templateId root="2.16.840.1.248759.10.20.22.4.1"/& gt; <id nullFlavor="NA" /> <code codeSystem=" local" code="LTSH" displayName="L200.3850" /> & lt;statusCode code="completed"/> <component> < observation moodCode="EVN" classCode="OBS"> < templateId root="2.16.840.1.455365.10.20.22.4.2" /> < id nullFlavor="NA" /> <code codeSystem="local&quot ; code="200.3850" displayName="THYROID STIM HORMONE-TSH" /& gt; <statusCode code="completed" /> < effectiveTime value="865200529777" /> <value unit=&quot ;MIU/L" xsi:type="PQ" value="3.53" /> < interpretationCode codeSystem="local" code="N" /> <referenceRange> <observationRange> < text>0.47-4.68</text> </observationRange> &lt ;/referenceRange> </observation> </component> < /organizer> </entry> <entry> <organizer moodCode=" EVN" classCode="BATTERY"> <templateId root=" 2.16.840.1.499142.10.20.22.4.1" /> <id nullFlavor="NA&quot ; /> <code codeSystem="local" code="LBGM" displayName="L900.0530" /> <statusCode code="completed " /> <component> <observation moodCode="EVN& quot; classCode="OBS"> <templateId root=" 2.16.840.1.902895.10.20.22.4.2" /> <id nullFlavor="NA& quot; /> <code codeSystem="local" code="900.0530& quot; displayName="GLUCOMETER" /> <statusCode code=& quot;completed" /> <effectiveTime value="902209273568& quot; /> <value unit="mg/dL" xsi:type="PQ" value="132" /> <interpretationCode codeSystem=" local" code="H" /> <referenceRange> <observationRange> <text>65-110</text> < /observationRange> </referenceRange> </observation& gt; </component> </organizer> </entry><entry> <organizer moodCode="EVN" classCode="BATTERY"> <templateId root="2.16.840.1.569743.10.20.22.4.1" /> < id nullFlavor="NA"/> <code codeSystem="local" code="LCBCM" displayName="L100.0060" /> < statusCode code="completed" /> <component> < observation moodCode="EVN" classCode="OBS"> < templateId root="2.16.840.1.065342.10.20.22.4.2" /> < id nullFlavor="NA" /> <code codeSystem="local&quot ; code="100.0150" displayName="WBC - WHITE BLOOD COUNT" /&gt ; <statusCode code="completed" /> < effectiveTime value="063238967746" /> <value unit=&quot ;T/MM3" xsi:type="PQ" value="7.1" /> < interpretationCode codeSystem="local" code="N" /> <referenceRange> <observationRange> < text>4.5-11.0</text> </observationRange> < /referenceRange> </observation> </component> < component> <observation moodCode="EVN" classCode=" OBS"> <templateId root="2.16.840.1.851512.10.20.22.4.2& quot; /> <id nullFlavor="NA" /> <code codeSystem="local" code="100.0250" displayName="RED BLOOD COUNT" /> <statusCode code="completed" /&gt ; <effectiveTime value="520863004423" /> < value unit="M/MM3" xsi:type="PQ" value="4.01" /&gt ; <interpretationCode codeSystem="local" code="N&quot ; /> <referenceRange> <observationRange> <text>4.00-5.20</text> </observationRange&gt ; </referenceRange> </observation> </ component> <component> <observation moodCode="EVN& quot; classCode="OBS"> <templateId root=" 2.16.840.1.893263.10.20.22.4.2" /> <id nullFlavor="NA& quot; /> <code codeSystem="local" code="100.0300& quot; displayName="HGB - HEMOGLOBIN" /> <statusCode code="completed" /> <effectiveTime value=" 617976258150" /> <value unit="GM/DL" xsi:type=& quot;PQ" value="10.9" /> <interpretationCode codeSystem="local" code="L" /> < referenceRange> <observationRange> <text>12- 16</text> </observationRange> </ referenceRange> </observation> </component> < component> <observation moodCode="EVN" classCode=" OBS"> <templateId root="2.16.840.1.801541.10.20.22.4.2& quot; /> <id nullFlavor="NA" /> <code codeSystem="local" code="100.0400" displayName="HCT - HEMATOCRIT" /> <statusCode code="completed" /> <effectiveTime value="780726725587" /> < value unit="%" xsi:type="PQ" value="35.6" /> <interpretationCode codeSystem="local" code="L& quot; /> <referenceRange> <observationRange> <text>36-46</text> </observationRange&gt ; </referenceRange> </observation> </component> <component> <observation moodCode="EVN" classCode=& quot;OBS"> <templateIdroot=" 2.16.840.1.774107.10.20.22.4.2" /> <id nullFlavor="NA& quot; /> <code codeSystem="local" code="100.0550& quot; displayName="MEAN CORPUSCULAR VOLUME" /> < statusCode code="completed" /> <effectiveTime value=& quot;923994829831" /> <value unit="UM3" xsi:type=& quot;PQ" value="88.8" /> <interpretationCode codeSystem="local" code="N" /> < referenceRange> <observationRange> <text>80-100< /text> </observationRange> </referenceRange> </observation> </component> <component> <observation moodCode="EVN" classCode="OBS"> <templateId root="2.16.840.1.554012.10.20.22.4.2" /> <id nullFlavor="NA" /> <code codeSystem=" local" code="100.0600" displayName="MEAN CORPUSCULAR HGB& quot; /> <statusCode code="completed" /> & lt;effectiveTime value="278764083783" /> <value unit=& quot;UUG" xsi:type="PQ" value="27.2" /> &lt ;interpretationCode codeSystem="local" code="N" /> <referenceRange> <observationRange> < text>26-34</text> </observationRange> </ referenceRange> </observation> </component> < component> <observation moodCode="EVN" classCode=" OBS"> <templateId root="2.16.840.1.975199.10.20.22.4.2& quot; /> <id nullFlavor="NA" /> <code codeSystem="local" code="100.0650" displayName="MEAN CORPUSCULAR HGB CONC([facility]" /> <statusCode code=" completed" /> <effectiveTime value="247272351200" /> <value unit="GM/DL" xsi:type="PQ" value=& quot;30.6" /> <interpretationCode codeSystem="local& quot; code="L" /> <referenceRange> < observationRange> <text>31-37</text> </ observationRange> </referenceRange> </observation&gt ; </component> <component> <observation moodCode=& quot;EVN" classCode="OBS"> <templateId root=" 2.16.840.1.230980.10.20.22.4.2" /> <id nullFlavor="NA&quot ; /> <code codeSystem="local" code="100.0750&quot ; displayName="RDW STANDARD DEVIATION" /> <statusCode code="completed" /> <effectiveTime value=" 210286639339" /> <value unit="FL" xsi:type=" PQ" value="51.2" /> <interpretationCode codeSystem ="local" code="H" /> <referenceRange> <observationRange> <text>36.9-50.2</text> </observationRange> </referenceRange> < /observation> </component> <component> < observation moodCode="EVN" classCode="OBS"> < templateId root="2.16.840.1.751572.10.20.22.4.2" /> < id nullFlavor="NA" /> <code codeSystem="local&quot ; code="100.0850" displayName="PLT - PLATELET COUNT" /> <statusCode code="completed"/> < effectiveTime value="556653056129" /> <value unit=&quot ;T/MM3" xsi:type="PQ" value="289" /> < interpretationCode codeSystem="local" code="N" /> <referenceRange> <observationRange> < text>130-400</text> </observationRange> </ referenceRange> </observation> </component> < component> <observation moodCode="EVN" classCode=" OBS"> <templateId root="2.16.840.1.443888.10.20.22.4.2& quot; /> <id nullFlavor="NA"/> <code codeSystem="local" code="100.0950" displayName="MEAN PLATELET VOLUME" /> <statusCode code="completed" / > <effectiveTime value="435258803613" /> & lt;value unit="UM3" xsi:type="PQ" value="9.7" /&gt ; <interpretationCode codeSystem="local"code="N&quot ; /> <referenceRange> <observationRange> <text>9.4-12.4</text> </observationRange> </referenceRange> </observation> </component> <component> <observation moodCode="EVN" classCode=& quot;OBS"> <templateId root=" 2.16.840.1.170284.10.20.22.4.2" /> <id nullFlavor="NA& quot; /> <code codeSystem="local" code="100.1650& quot; displayName="NEUTROPHILS % (MANUAL)" /> < statusCode code="completed" /> <effectiveTimevalue=& quot;310022505113" /> <value unit="%" xsi: type="PQ" value="75.0" /> < interpretationCode codeSystem="local" code="H" /> <referenceRange> <observationRange><text>33-66& lt;/text> </observationRange> </referenceRange& gt; </observation> </component> <component> <observation moodCode="EVN" classCode="OBS"> <templateId root="2.16.840.1.249258.10.20.22.4.2" /> <id nullFlavor="NA" /> <code codeSystem=" local" code="100.1750" displayName="BAND NEUTROPHILS &# 37;" /> <statusCode code="completed" /> <effectiveTime value="911565020407" /> <value unit="%" xsi:type="PQ" value="8.0" /> <interpretationCode codeSystem="local" code="DH&quot ; /> <referenceRange> <observationRange> <text>0-6</text> </observationRange> </referenceRange> </observation> </component&gt ; </organizer> </entry> <entry> <organizer moodCode ="EVN" classCode="BATTERY"> <templateId root=& quot;2.16.840.1.662596.10.20.22.4.1" /> <id nullFlavor="NA& quot; /> <code codeSystem="local" code="LBMP" displayName="L200.0050" /> <statusCode code="completed " /> <component> <observation moodCode="EVN& quot; classCode="OBS"> <templateId root=" 2.16.840.1.516909.10.20.22.4.2" /> <id nullFlavor="NA& quot; /> <code codeSystem="local" code="200.0097& quot; displayName="ICTERUS" /> <statusCode code=" completed" /> <effectiveTime value="446402557970" /> <value unit="" xsi:type="PQ" value="< 2" /> <interpretationCode codeSystem="local" code= "N" /> <referenceRange> < observationRange> <text>0-7</text> </ observationRange> </referenceRange> </observation&gt ; </component> <component> <observation moodCode ="EVN" classCode="OBS"> <templateId root=& quot;2.16.840.1.634782.10.20.22.4.2" /> <id nullFlavor=&quot ;NA" /> <code codeSystem="local" code=" 200.0098"displayName="HEMOLYSIS" /> <statusCode code="completed" /> <effectiveTime value="575261786531& quot; /> <value unit="" xsi:type="PQ" value=& quot;< 15" /> <interpretationCode codeSystem=" local" code="N" /> <referenceRange> <observationRange> <text>0-25</text> & lt;/observationRange> </referenceRange> </ observation> </component> </organizer> </entry> & lt;entry> <organizer moodCode="EVN" classCode="BATTERY& quot;> <templateId root="2.16.840.1.108528.10.20.22.4.1" /&gt ; <id nullFlavor="NA" /> <code codeSystem=" local" code="LBGM" displayName="L900.0530" /> & lt;statusCode code="completed" /> <component> < observation moodCode="EVN" classCode="OBS"> < templateId root="2.16.840.1.228366.10.20.22.4.2" /> < id nullFlavor="NA" /> <code codeSystem="local" code="900.0530" displayName="GLUCOMETER" /> < statusCode code="completed" /> <effectiveTime value=& quot;058861686175" /> <value unit="mg/dL" xsi:type ="PQ" value="177" /> <interpretationCode codeSystem="local" code="H" /> < referenceRange> <observationRange> <text> 65-110</text> </observationRange> </ referenceRange> </observation> </component> </ organizer> </entry> <entry> <organizer moodCode="EVN " classCode="BATTERY"> <templateId root=" 2.16.840.1.271166.10.20.22.4.1" /> <id nullFlavor="NA&quot ; /> <code codeSystem="local" code="LBGM" displayName="L900.0530" /> <statusCode code="completed " /> <component> <observation moodCode="EVN& quot; classCode="OBS"> <templateId root=" 2.16.840.1.180873.10.20.22.4.2" /> <id nullFlavor="NA& quot; /> <code codeSystem="local" code="900.0530& quot; displayName="GLUCOMETER" /> <statusCode code=& quot;completed" /> <effectiveTime value="363311423063& quot; /> <value unit="mg/dL" xsi:type="PQ" value="113" /> <interpretationCode codeSystem="local" code="H" /> <referenceRange> < observationRange> <text>65-110</text></ observationRange> </referenceRange> </observation&gt ; </component> </organizer> </entry> <entry> <organizer moodCode="EVN" classCode="BATTERY"> <templateId root="2.16.840.1.171722.10.20.22.4.1" /> < id nullFlavor="NA" /> <code codeSystem="local" code="LBGM" displayName="L900.0530" /> < statusCode code="completed" /> <component> < observation moodCode="EVN" classCode="OBS"> < templateId root="2.16.840.1.277059.10.20.22.4.2" /> < id nullFlavor="NA" /> <code codeSystem="local&quot ; code="900.0530" displayName="GLUCOMETER" /> & lt;statusCode code="completed" /> <effectiveTime value= "307967485649" /> <value unit="mg/dL" xsi: type="PQ" value="83" /> <interpretationCode codeSystem="local" code="N" /> < referenceRange> <observationRange> <text> 65-110</text> </observationRange> </referenceRange& gt; </observation> </component> </organizer> & lt;/entry> <entry> <organizer moodCode="EVN" classCode ="BATTERY"> <templateId root=" 2.16.840.1.086446.10.20.22.4.1" /> <id nullFlavor="NA&quot ; /> <code codeSystem="local" code="LBGM" displayName="L900.0530" /> <statusCode code="completed " /> <component> <observation moodCode="EVN& quot; classCode="OBS"> <templateId root=" 2.16.840.1.264309.10.20.22.4.2" /> <id nullFlavor="NA& quot; /> <code codeSystem="local" code="900.0530& quot; displayName="GLUCOMETER" /> <statusCode code=& quot;completed" /> <effectiveTimevalue="997310981764& quot; /> <value unit="mg/dL" xsi:type="PQ" value="86" /> <interpretationCode codeSystem=" local" code="N" /> <referenceRange> <observationRange> <text>65-110</text> </observationRange> </referenceRange> </observation& gt; </component> </organizer> </entry> <entry&gt ; <organizer moodCode="EVN" classCode="BATTERY"> <templateId root="2.16.840.1.854360.10.20.22.4.1" /> < id nullFlavor="NA" /> <code codeSystem="local" code="LBMP" displayName="L200.0050" /><statusCode code ="completed" /> <component> <observation moodCode="EVN" classCode="OBS"> <templateId root="2.16.840.1.250213.10.20.22.4.2" /> <id nullFlavor ="NA" /> <code codeSystem="local" code=" 200.0097" displayName="ICTERUS" /> <statusCode code="completed" /> <effectiveTime value=" 630370098813" /> <value unit="" xsi:type="PQ& quot; value="< 2" /> <interpretationCode codeSystem= "local" code="N" /> <referenceRange> <observationRange> <text>0-7</text> </ observationRange> </referenceRange> </observation&gt ; </component> <component> <observation moodCode ="EVN" classCode="OBS"> <templateId root=& quot;2.16.840.1.500221.10.20.22.4.2" /> <id nullFlavor=&quot ;NA" /> <code codeSystem="local" code=" 200.0098" displayName="HEMOLYSIS" /> <statusCode code="completed" /> <effectiveTime value=" 026673284082" /> <value unit="" xsi:type="PQ& quot; value="< 15" /> <interpretationCode codeSystem="local" code="N" /> < referenceRange> <observationRange> <text> 0-25</text> </observationRange> </referenceRange& gt; </observation> </component> </organizer> & lt;/entry> <entry> <organizer moodCode="EVN" classCode ="BATTERY"> <templateId root=" 2.16.840.1.761305.10.20.22.4.1" /> <id nullFlavor="NA&quot ; /> <code codeSystem="local" code="LMAG" displayName="L200.2000" /> <statusCode code="completed " /> <component> <observation moodCode="EVN& quot; classCode="OBS"> <templateId root=" 2.16.840.1.840782.10.20.22.4.2" /> <id nullFlavor="NA& quot;/> <code codeSystem="local" code="200.2000& quot; displayName="MAGNESIUM" /> <statusCode code=&quot ;completed" /> <effectiveTime value="705961464675&quot ; /> <value unit="MG/DL" xsi:type="PQ" value= "1.9" /> <interpretationCode codeSystem="local& quot; code="U" /> <referenceRange> < observationRange> <text>1.6-2.3</text> & lt;/observationRange> </referenceRange> </observation& gt; </component> </organizer> </entry> <entry&gt ; <organizer moodCode="EVN" classCode="BATTERY"> <templateId root="2.16.840.1.366427.10.20.22.4.1" /> & lt;id nullFlavor="NA" /> <code codeSystem="local&quot ; code="LBGM" displayName="L900.0530" /> < statusCode code="completed" /> <component> < observation moodCode="EVN" classCode="OBS"> < templateId root="2.16.840.1.021536.10.20.22.4.2" /> < id nullFlavor="NA" /> <code codeSystem="local&quot ; code="900.0530" displayName="GLUCOMETER" /> & lt;statusCode code="completed" /> <effectiveTime value= "438724455968" /> <value unit="mg/dL" xsi: type="PQ" value="176" /> <interpretationCode codeSystem="local" code="H" /> < referenceRange> <observationRange> <text> 65-110</text> </observationRange> </ referenceRange> </observation></component> </ organizer> </entry> <entry> <organizer moodCode="EVN " classCode="BATTERY"> <templateId root=" 2.16.840.1.405811.10.20.22.4.1" /> <id nullFlavor="NA&quot ; /> <code codeSystem="local" code="LBGM" displayName="L900.0530" /> <statusCode code="completed " /> <component> <observation moodCode="EVN& quot; classCode="OBS"> <templateId root=" 2.16.840.1.032160.10.20.22.4.2" /> <id nullFlavor="NA&quot ; /> <code codeSystem="local" code="900.0530&quot ; displayName="GLUCOMETER" /> <statusCode code=" completed" /> <effectiveTime value="546138831349" /> <value unit="mg/dL" xsi:type="PQ" value=& quot;118" /> <interpretationCode codeSystem="local&quot ; code="H" /> <referenceRange> < observationRange> <text>65-110</text> &lt ;/observationRange> </referenceRange> </observation& gt; </component> </organizer> </entry> <entry&gt ; <organizer moodCode="EVN" classCode="BATTERY"> <templateId root="2.16.840.1.763779.10.20.22.4.1" /> & lt;id nullFlavor="NA" /> <code codeSystem="local&quot ; code="LBGM" displayName="L900.0530" /> < statusCode code="completed" /> <component> < observation moodCode="EVN" classCode="OBS"> < templateId root="[id number]" /> < id nullFlavor="NA" /> <code codeSystem="local&quot ; code="900.0530" displayName="GLUCOMETER" /> & lt;statusCode code="completed" /> <effectiveTime value= "[id number]" /> <value unit="mg/dL" xsi: type="PQ" value="113" /> <interpretationCode codeSystem="local"code="H" /> <referenceRange > <observationRange> <text>65-110</text> </observationRange> </referenceRange> </ observation> </component> </organizer> </entry> & lt;entry> <organizer moodCode="EVN" classCode="BATTERY& quot;> <templateId root="[id number]" /& gt; <id nullFlavor="NA" /> <code codeSystem=" local" code="LBGM" displayName="L900.0530"/> & lt;statusCode code="completed" /> <component> &lt ;observation moodCode="EVN" classCode="OBS"> &lt ;templateId root="2.16.840.1.810918.10.20.22.4.2" /> < id nullFlavor="NA" /> <code codeSystem="local&quot ; code="900.0530" displayName="GLUCOMETER" /> < statusCode code="completed" /> <effectiveTime value=& quot;362037648916" /> <value unit="mg/dL" xsi:type ="PQ" value="128" /> <interpretationCode codeSystem="local" code="H" /> <referenceRange> <observationRange> <text>65-110</text&gt ; </observationRange> </referenceRange> & lt;/observation> </component> </organizer> </entry&gt ; <entry> <organizer moodCode="EVN" classCode=" BATTERY"> <templateId root="2.16.840.1.032879.10.20.22.4.1& quot; /> <id nullFlavor="NA" /> <code codeSystem ="local" code="LCBC" displayName="L100.0050" /&gt ; <statusCode code="completed" /> <component> <observation moodCode="EVN" classCode="OBS"> <templateId root="2.16.840.1.698781.10.20.22.4.2" /> <id nullFlavor="NA" /> <code codeSystem=" local" code="100.0150" displayName="WBC - WHITE BLOOD COUNT& quot; /> <statusCode code="completed" /> & lt;effectiveTime value="579720163742" /> <value unit=&quot ;T/MM3" xsi:type="PQ" value="11.2" /> < interpretationCode codeSystem="local" code="DH" /> <referenceRange> <observationRange> < text>4.5-11.0</text> </observationRange> </ referenceRange> </observation> </component> </ organizer> </entry> <entry> <organizer moodCode="EVN " classCode="BATTERY"> <templateId root=" 2.16.840.1.118155.10.20.22.4.1" /> <id nullFlavor="NA&quot ; /> <code codeSystem="local"code="LBMP" displayName="L200.0050" /> <statusCode code="completed " /> <component> <observation moodCode="EVN& quot; classCode="OBS"> <templateId root=" 2.16.840.1.480202.10.20.22.4.2" /><id nullFlavor="NA" /&gt ; <code codeSystem="local" code="200.0097" displayName="ICTERUS" /> <statusCode code=" completed" /> <effectiveTime value="359242034410" /> <value unit="" xsi:type="PQ" value="& amp;lt; 2" /> <interpretationCode codeSystem="local& quot; code="N" /> <referenceRange> < observationRange> <text>0-7</text> </ observationRange> </referenceRange> </observation> </component> <component> <observation moodCode=" EVN" classCode="OBS"> <templateId root=" 2.16.840.1.990270.10.20.22.4.2" /> <id nullFlavor="NA& quot; /> <code codeSystem="local" code="200.0098& quot; displayName="HEMOLYSIS" /> <statusCode code=&quot ;completed" /> <effectiveTime value="248943059662&quot ; /> <value unit="" xsi:type="PQ" value=&quot ;< 15" /> <interpretationCode codeSystem="local& quot; code="N" /> <referenceRange> < observationRange> <text>0-25</text> </ observationRange> </referenceRange> </observation> </component> </organizer> </entry> <entry> < organizer moodCode="EVN" classCode="BATTERY"> < templateId root="2.16.840.1.963864.10.20.22.4.1" /> <id nullFlavor="NA" /> <code codeSystem="local" code= "LPROCALC" displayName="L200.2067" /> <statusCode code="completed" /> <component> <observation moodCode="EVN" classCode="OBS"> <templateId root="2.16.840.1.642385.10.20.22.4.2" /> <id nullFlavor ="NA" /> <code codeSystem="local" code=" 200" displayName="PROCALCITONIN" /> <statusCode code=& quot;completed" /> <effectiveTime value="232326870761& quot; /> <value unit="NG/ML" xsi:type="PQ" value="14.68" /> <interpretationCode codeSystem=" local" code="PH" /> <referenceRange> < observationRange> <text /> </ observationRange> </referenceRange> </observation&gt ; </component> </organizer> </entry> <entry> <organizer moodCode="EVN" classCode="BATTERY"> <templateId root="2.16.840.1.741508.10.20.22.4.1" /> < id nullFlavor="NA" /> <code codeSystem="local" code="LCBCM" displayName="L100.0060" /> < statusCode code="completed" /> <component> < observation moodCode="EVN" classCode="OBS"> < templateId root="2.16.840.1.194964.10.20.22.4.2" /> < id nullFlavor="NA" /> <code codeSystem="local&quot ; code="100.0150" displayName="WBC - WHITE BLOOD COUNT" /&gt ; <statusCode code="completed" /> < effectiveTime value="814526584677" /> <valueunit=" T/MM3" xsi:type="PQ" value="11.2" /> < interpretationCode codeSystem="local" code="DH" /> <referenceRange> <observationRange> <text> 4.5-11.0</text> </observationRange> </ referenceRange> </observation> </component> </ organizer> </entry> <entry> <organizer moodCode="EVN " classCode="BATTERY"> <templateId root=" 2.16.840.1.128589.10.20.22.4.1" /> <id nullFlavor="NA" /& gt; <code codeSystem="local" code="LUADMRC" displayName="L600.0175" /> <statusCode code="completed " /> <component> <observation moodCode="EVN& quot; classCode="OBS"> <templateId root=" 2.16.840.1.502272.10.20.22.4.2" /> <id nullFlavor="NA& quot; /> <code codeSystem="local" code="600.0500& quot; displayName="SPECIMEN TYPE, URINE" /> < statusCode code="completed" /> <effectiveTime value=& quot;911078600712" /> <value unit="" xsi:type=& quot;PQ" value="CARTWRIGHT INDWELLING" /> < interpretationCodecodeSystem="local" code="N" /> <referenceRange> <observationRange> < text /> </observationRange> </referenceRange&gt ; </observation> </component> <component> <observation moodCode="EVN" classCode="OBS"> <templateId root="2.16.840.1.316181.10.20.22.4.2" /> <id nullFlavor="NA" /> <code codeSystem="local& quot; code="600.0550" displayName="COLOR,URINE" /> <statusCode code="completed" /> <effectiveTime value="477958857157" /> <value unit="" xsi: type="PQ" value="YELLOW" /> < interpretationCode codeSystem="local" code="N" /> <referenceRange> <observationRange> < text>YELLOW</text> </observationRange> </ referenceRange> </observation> </component> < component> <observation moodCode="EVN" classCode=" OBS"> <templateId root="2.16.840.1.746505.10.20.22.4.2& quot; /> <id nullFlavor="NA" /> <code codeSystem="local" code="600.0600" displayName=" TURBIDITY, URINE" /> <statusCode code="completed" /> <effectiveTime value="462618540679" /> & lt;value unit="" xsi:type="PQ" value="CLEAR" /&gt ; <interpretationCode codeSystem="local" code="N&quot ; /> <referenceRange> <observationRange> <text>CLEAR</text> </observationRange> </referenceRange> </observation> </component& gt; <component> <observation moodCode="EVN" classCode="OBS"> <templateId root=" 2.16.840.1.516622.10.20.22.4.2" /> <idnullFlavor="NA& quot; /> <code codeSystem="local" code="600.0650& quot; displayName="SPECIFIC GRAVITY,URINE" /> < statusCode code="completed" /> <effectiveTime value=& quot;342262086956" /> <value unit="" xsi:type=& quot;PQ" value="1.015" /> <interpretationCode codeSystem="local" code="N" /> < referenceRange> <observationRange> <text> 1.015-1.025</text> </observationRange> </ referenceRange> </observation> </component> < component> <observation moodCode="EVN" classCode=" OBS"> <templateId root="2.16.840.1.613970.10.20.22.4.2& quot; /> <id nullFlavor="NA" /> <code codeSystem="local" code="600.0700" displayName="PH, URINE - DIPSTICK" /> <statusCode code="completed" /> <effectiveTime value="570776880175" /> < value unit="" xsi:type="PQ" value="5.0" /> <interpretationCode codeSystem="local" code="N" /& gt; <referenceRange> <observationRange> <text>5.0-8.0</text> </observationRange> </referenceRange> </observation> </component> <component> <observation moodCode="EVN" classCode= "OBS"> <templateId root=" 2.16.840.1.027692.10..22.4.2" /> <id nullFlavor="NA& quot; /> <code codeSystem="local" code="600.0750& quot; displayName="LEUKOCYTE ESTERASE ,URINE" /> < statusCode code="completed" /> <effectiveTime value=& quot;024051878135" /> <value unit="" xsi:type=& quot;PQ" value="1+" /> <interpretationCode codeSystem="local" code="Aa" /> < referenceRange> <observationRange> <text> NEGATIVE</text> </observationRange> </ referenceRange> </observation> </component> < component> <observation moodCode="EVN" classCode=" OBS"> <templateId root="2.16.840.1.132501.10.20.22.4.2& quot; /> <id nullFlavor="NA" /> <code codeSystem="local" code="600.0800" displayName="NITRITE ,URINE" /> <statusCode code="completed" /> <effectiveTime value="523279671545" /> <value unit="" xsi:type="PQ" value="NEGATIVE" /> <interpretationCode codeSystem="local" code="N" /> <referenceRange> <observationRange> & lt;text>NEGATIVE</text> </observationRange> </ referenceRange> </observation> </component> < component> <observation moodCode="EVN" classCode=" OBS"> <templateId root="2.16.840.1.394849.10.20.22.4.2& quot; /> <id nullFlavor="NA" /> <code codeSystem="local" code="600.0850" displayName="PROTEIN ,URINE - DIPSTICK" /> <statusCode code="completed&quot ; /> <effectiveTime value="383948141892" /> <value unit="" xsi:type="PQ" value="NEGATIVE&quot ; /> <interpretationCode codeSystem="local" code=" N" /> <referenceRange> <observationRange> <text>NEGATIVE</text> </observationRange& gt; </referenceRange> </observation> </ component> <component> <observation moodCode="EVN& quot; classCode="OBS"> <templateId root=" 2.16.840.1.392499.10.20.22.4.2" /> <id nullFlavor="NA& quot; /> <code codeSystem="local" code="600.0900& quot; displayName="GLUCOSE, URINE - DIPSTICK" /> < statusCode code="completed" /> <effectiveTime value=& quot;729639554150" /> <value unit="" xsi:type=& quot;PQ" value="NEGATIVE" /> <interpretationCode codeSystem="local" code="N" /> < referenceRange> <observationRange> <text> NEGATIVE</text> </observationRange> </ referenceRange> </observation> </component> < component> <observation moodCode="EVN" classCode=" OBS"> <templateId root="2.16.840.1.883693.10.20.22.4.2& quot; /> <id nullFlavor="NA" /> <code codeSystem="local" code="600.0950" displayName="KETONES ,URINE - DIPSTICK" /> <statusCode code="completed&quot ; /> <effectiveTime value="196981216753" /> < value unit="" xsi:type="PQ" value="NEGATIVE" /&gt ; <interpretationCode codeSystem="local" code="N&quot ; /> <referenceRange> <observationRange> <text>NEGATIVE</text> </observationRange&gt ; </referenceRange> </observation> </ component> <component><observation moodCode="EVN" classCode="OBS"> <templateId root=" 2.16.840.1.554960.10.20.22.4.2" /> <id nullFlavor="NA& quot; /> <code codeSystem="local" code="600.1000" displayName="UROBILINOGEN,URINE" /> <statusCode code=& quot;completed" /> <effectiveTime value="996712507762& quot; /> <value unit="EU/DL" xsi:type="PQ" value="0.2" /> <interpretationCode codeSystem=" local" code="N" /> <referenceRange> <observationRange> <text>NORMAL</text> </observationRange> </referenceRange> </observation& gt; </component> <component> <observation moodCode="EVN" classCode="OBS"> <templateId root="2.16.840.1.876228.10.20.22.4.2" /> <id nullFlavor ="NA" /> <code codeSystem="local" code=" 600.1050" displayName="BILIRUBIN,URINE - DIPSTICK" /> <statusCode code="completed" /> <effectiveTime value ="616549813766" /> <value unit="" xsi:type=& quot;PQ" value="NEGATIVE" /> <interpretationCode codeSystem="local" code="N" /> <referenceRange& gt; <observationRange> <text>NEGATIVE</ text> </observationRange> </referenceRange> </observation> </component> <component> <observation moodCode="EVN" classCode="OBS"> <templateId root="2.16.840.1.963877.10.20.22.4.2" /> <id nullFlavor="NA" /> <code codeSystem=" local" code="600.1100" displayName="BLOOD, URINE" /&gt ; <statusCode code="completed" /> < effectiveTime value="376988005201" /> <value unit="" xsi:type="PQ" value="3+" /> < interpretationCode codeSystem="local" code="Aa" /> <referenceRange> <observationRange> <text >NEGATIVE</text> </observationRange> </ referenceRange> </observation> </component> </ organizer> </entry> <entry> <organizer moodCode="EVN " classCode="BATTERY"> <templateId root=" 2.16.840.1.635790.10.20.22.4.1" /> <id nullFlavor="NA&quot ; /> <code codeSystem="local" code="LUADMRC" displayName="L600.0175" /> <statusCode code="completed " /> <component> <observation moodCode="EVN& quot; classCode="OBS"> <templateId root=" 2.16.840.1.782883.10..22.4.2" /> <id nullFlavor="NA& quot; /> <code codeSystem="local" code="600.0500& quot; displayName="SPECIMEN TYPE, URINE" /> < statusCode code="completed" /> <effectiveTime value=& quot;365880966935" /> <value unit="" xsi:type=& quot;PQ" value="CARTWRIGHT INDWELLING" /> < interpretationCode codeSystem="local" code="N" /> <referenceRange><observationRange> <text /> </observationRange> </referenceRange> < /observation> </component> <component> < observation moodCode="EVN" classCode="OBS"> < templateId root="2.16.840.1.510704.10.20.22.4.2" /> < id nullFlavor="NA" /> <code codeSystem="local" code="600.0550" displayName="COLOR,URINE" /> &lt ;statusCode code="completed" /> <effectiveTime value=& quot;782245817717" /> <value unit="" xsi:type=& quot;PQ" value="YELLOW" /> <interpretationCode codeSystem="local" code="N" /> < referenceRange> <observationRange> <text> YELLOW</text> </observationRange> </ referenceRange> </observation> </component> < component> <observation moodCode="EVN" classCode=" OBS"> <templateId root="2.16.840.1.851509.10.20.22.4.2& quot; /> <id nullFlavor="NA" /> <code codeSystem="local" code="600.0600" displayName=" TURBIDITY, URINE" /> <statusCode code="completed" /> <effectiveTime value="944733357831" /> & lt;value unit="" xsi:type="PQ" value="CLEAR" /&gt ; <interpretationCode codeSystem="local" code="N" /&gt ; <referenceRange> <observationRange> <text>CLEAR</text> </observationRange> </ referenceRange> </observation> </component> < component> <observation moodCode="EVN" classCode=" OBS"> <templateId root="2.16.840.1.242437.10.20.22.4.2& quot; /> <id nullFlavor="NA" /> <code codeSystem="local" code="600.0650" displayName=" SPECIFIC GRAVITY,URINE" /> <statusCode code="completed& quot; /> <effectiveTime value="556655210729" /> <value unit="" xsi:type="PQ" value="1.015&quot ; /> <interpretationCode codeSystem="local" code=" N" /> <referenceRange> <observationRange&gt ; <text>1.015-1.025</text> </ observationRange> </referenceRange> </observation&gt ; </component> <component> <observation moodCode ="EVN" classCode="OBS"> <templateId root=" 2.16.840.1.572606.10.20.22.4.2" /> <id nullFlavor="NA& quot; /> <code codeSystem="local" code="600.0700& quot; displayName="PH, URINE - DIPSTICK" /> < statusCode code="completed" /> <effectiveTime value=" 278875188229" /> <value unit="" xsi:type="PQ& quot; value="5.0" /> <interpretationCode codeSystem=& quot;local" code="N" /> <referenceRange> <observationRange> <text>5.0-8.0</text> </observationRange> </referenceRange> </ observation> </component> <component> < observation moodCode="EVN" classCode="OBS"> < templateId root="2.16.840.1.394589.10.20.22.4.2" /> < id nullFlavor="NA" /> <code codeSystem="local" code=& quot;600.0750" displayName="LEUKOCYTE ESTERASE ,URINE" /> <statusCode code="completed" /> < effectiveTime value="219126061247" /> <value unit=&quot ;" xsi:type="PQ"value="1+" /> < interpretationCode codeSystem="local" code="Aa" /> <referenceRange> <observationRange> < text>NEGATIVE</text> </observationRange> < /referenceRange> </observation> </component> < component> <observation moodCode="EVN" classCode=" OBS"> <templateId root="2.16.840.1.586799.10..22.4.2& quot; /> <id nullFlavor="NA" /> <code codeSystem="local" code="600.0800" displayName="NITRITE ,URINE" /> <statusCode code="completed" /> <effectiveTime value="862043065193" /> <value unit="" xsi:type="PQ" value="NEGATIVE" /> <interpretationCode codeSystem="local" code="N" /&gt ; <referenceRange> <observationRange> <text>NEGATIVE</text> </observationRange> </referenceRange> </observation> </component> <component> <observation moodCode="EVN" classCode=& quot;OBS"> <templateId root=" 2.16.840.1.629764.10.20.22.4.2" /> <id nullFlavor="NA&quot ; /> <code codeSystem="local" code="600.0850&quot ; displayName="PROTEIN,URINE - DIPSTICK" /> < statusCode code="completed" /> <effectiveTime value=& quot;474517224119" /> <value unit="" xsi:type="PQ&quot ; value="NEGATIVE" /> <interpretationCode codeSystem=& quot;local" code="N" /> <referenceRange> <observationRange> <text>NEGATIVE</text> </observationRange> </referenceRange> < /observation> </component> <component> < observation moodCode="EVN" classCode="OBS"> < templateId root="2.16.840.1.643564.10.20.22.4.2" /> < id nullFlavor="NA" /> <code codeSystem="local&quot ; code="600.0900" displayName="GLUCOSE, URINE - DIPSTICK" /& gt; <statusCode code="completed" /> < effectiveTime value="565513422143" /> <value unit=&quot ;" xsi:type="PQ" value="NEGATIVE" /> < interpretationCode codeSystem="local" code="N" /> <referenceRange> <observationRange> < text>NEGATIVE</text> </observationRange> < /referenceRange> </observation> </component> &lt ;component> <observation moodCode="EVN" classCode=" OBS"> <templateId root="2.16.840.1.280251.10.20.22.4.2& quot; /> <id nullFlavor="NA" /> <code codeSystem="local" code="600.0950" displayName="KETONES ,URINE - DIPSTICK" /> <statusCode code="completed&quot ; /> <effectiveTime value="279644912099" /> & lt;value unit="" xsi:type="PQ" value="NEGATIVE" /& gt; <interpretationCode codeSystem="local" code="N& quot; /> <referenceRange> <observationRange> <text>NEGATIVE</text> </observationRange > </referenceRange> </observation> </ component> <component> <observation moodCode="EVN&quot ; classCode="OBS"> <templateId root=" 2.16.840.1.623646.10.20.22.4.2" /> <id nullFlavor="NA& quot; /> <code codeSystem="local" code="600.1000& quot; displayName="UROBILINOGEN,URINE" /> <statusCode code="completed" /> <effectiveTime value=" 551544655041" /> <value unit="EU/DL" xsi:type=& quot;PQ" value="0.2" /> <interpretationCode codeSystem="local" code="N" /> < referenceRange> <observationRange> <text> NORMAL</text> </observationRange> </ referenceRange> </observation> </component> < component> <observation moodCode="EVN" classCode=" OBS"> <templateId root="2.16.840.1.672298.10.20.22.4.2& quot; /> <id nullFlavor="NA" /> <code codeSystem="local" code="600.1050" displayName=" BILIRUBIN,URINE - DIPSTICK" /> <statusCode code=" completed" /> <effectiveTime value="470857230549" /> <value unit="" xsi:type="PQ" value=" NEGATIVE" /> <interpretationCode codeSystem="local&quot ; code="N" /> <referenceRange> < observationRange> <text>NEGATIVE</text> & lt;/observationRange> </referenceRange> </ observation> </component> <component> < observation moodCode="EVN" classCode="OBS"> < templateId root="2.16.840.1.708627.10.20.22.4.2" /> < id nullFlavor="NA" /> <code codeSystem="local&quot ; code="600.1100" displayName="BLOOD, URINE" /> <statusCodecode="completed" /> <effectiveTime value= "326445288240" /> <value unit="" xsi:type="PQ " value="3+" /> <interpretationCode codeSystem=& quot;local" code="Aa" /> <referenceRange> <observationRange> <text>NEGATIVE</text> </observationRange> </referenceRange> &lt ;/observation> </component> <component> < observation moodCode="EVN" classCode="OBS"> < templateId root="2.16.840.1.377342.10.20.22.4.2" /> < id nullFlavor="NA" /> <code codeSystem="local&quot ; code="600.1200" displayName="WBC,URINE" /> &lt ;statusCode code="completed" /> <effectiveTime value=" 583941676082" /> <value unit="/HPF" xsi:type=&quot ;PQ" value="10-20" /> <interpretationCode codeSystem="local" code="Doran" /> < referenceRange> <observationRange> <text> 0-5</text> </observationRange> </ referenceRange> </observation> </component> < component><observation moodCode="EVN" classCode="OBS"& gt; <templateId root="2.16.840.1.830201.10.20.22.4.2" /&gt ; <id nullFlavor="NA" /> <code codeSystem=" local" code="600.1250" displayName="RBC,URINE" /> <statusCode code="completed" /> < effectiveTime value="556638291428" /> <value unit=&quot ;/HPF" xsi:type="PQ" value="20-30" /> < interpretationCode codeSystem="local" code="Doran" /> <referenceRange> <observationRange> < text>0-3</text> </observationRange> </ referenceRange> </observation> </component> < component> <observation moodCode="EVN" classCode=" OBS"> <templateId root="2.16.840.1.001122.10.20.22.4.2& quot; /> <id nullFlavor="NA" /> <code codeSystem="local" code="600.1450" displayName=" BACTERIA,URINE" /> <statusCode code="completed" /& gt; <effectiveTime value="057368985191" /> < value unit="" xsi:type="PQ" value="TRACE" /> <interpretationCode codeSystem="local" code="Doran" /> <referenceRange> <observationRange> <text>NEGATIVE</text> </observationRange> </referenceRange> </observation> </component > <component> <observation moodCode="EVN" classCode="OBS"> <templateId root=" 2.16.840.1.049319.10.20.22.4.2" /> <id nullFlavor="NA& quot; /> <code codeSystem="local" code="600.2400& quot; displayName="CULTURE SET UP,URINE" /> < statusCode code="completed" /> <effectiveTime value=& quot;089251262696" /> <value unit="" xsi:type=& quot;PQ" value="CULT REFLEXED &SETUP" /> < interpretationCode codeSystem="local" code="N" /> <referenceRange> <observationRange> < text /> </observationRange> </referenceRange&gt ; </observation> </component> </organizer> &lt ;/entry> <entry> <organizer moodCode="EVN" classCode=& quot;BATTERY"> <templateId root=" 2.16.840.1.554549.10.20.22.4.1" /> <id nullFlavor="NA&quot ; /> <code codeSystem="local" code="MCUURINE" displayName="M153.0000" /> <statusCode code="completed " /><component> <observation moodCode="EVN" classCode="OBS"> <templateId root=" 2.16.840.1.426242.10.20.22.4.2" /> <id nullFlavor="NA& quot; /> <code codeSystem="local" code="307.0000& quot; displayName="URINE CULTURE." /> <statusCode code= "completed" /> <effectiveTime value="172902960103" /& gt; <value unit="" xsi:type="PQ" value="NO GROWTH AFTER 48 HOURS" /> <referenceRange> < observationRange> <text /> </ observationRange> </referenceRange> </observation> </component> </organizer> </entry> <entry> & lt;organizer moodCode="EVN" classCode="BATTERY"> &lt ;templateId root="2.16.840.1.639848.10.20.22.4.1" /> <id nullFlavor="NA" /> <code codeSystem="local" code= "LBGM" displayName="L900.0530" /> <statusCode code="completed" /> <component> <observation moodCode="EVN" classCode="OBS"> <templateId root="2.16.840.1.914369.10.20.22.4.2" /> <id nullFlavor ="NA" /> <code codeSystem="local" code=" 900.0530" displayName="GLUCOMETER" /> <statusCode code="completed" /> <effectiveTime value=" 351288098099" /> <value unit="mg/dL" xsi:type=& quot;PQ" value="146" /> <interpretationCode codeSystem="local" code="H" /> < referenceRange> <observationRange> <text> 65-110</text> </observationRange> </ referenceRange> </observation> </component> </ organizer> </entry> <entry> <organizer moodCode="EVN " classCode="BATTERY"> <templateId root=" 2.16.840.1.871588.10.20.22.4.1" /> <id nullFlavor="NA&quot ; /><code codeSystem="local" code="LBGM" displayName=& quot;L900.0530" /> <statusCode code="completed" /> <component> <observation moodCode="EVN" classCode= "OBS"> <templateId root=" 2.16.840.1.166061.10.20.22.4.2" /> <id nullFlavor="NA& quot; /> <code codeSystem="local" code="900.0530& quot; displayName="GLUCOMETER" /> <statusCode code=& quot;completed" /> <effectiveTime value="362107588592& quot; /> <value unit="mg/dL" xsi:type="PQ" value="122" /> <interpretationCode codeSystem=" local" code="H" /> <referenceRange> <observationRange> <text>65-110</text> & lt;/observationRange> </referenceRange> </ observation> </component> </organizer> </entry> < entry> <organizer moodCode="EVN" classCode="BATTERY&quot ;> <templateId root="2.16.840.1.786410.10.20.22.4.1" /> <id nullFlavor="NA" /> <code codeSystem=" local" code="LBGM" displayName="L900.0530" /> & lt;statusCode code="completed" /> <component> &lt ;observation moodCode="EVN" classCode="OBS"> &lt ;templateId root="2.16.840.1.578817.10.20.22.4.2" /> <id nullFlavor="NA" /> <code codeSystem="local" code="900.0530" displayName="GLUCOMETER" /> < statusCode code="completed" /> <effectiveTime value=& quot;415124977728" /> <value unit="mg/dL" xsi:type ="PQ" value="121" /> <interpretationCode codeSystem="local" code="H" /> < referenceRange> <observationRange> <text> 65-110</text> </observationRange> </ referenceRange> </observation> </component> </ organizer> </entry> <entry> <organizer moodCode="EVN " classCode="BATTERY"> <templateId root=" 2.16.840.1.992715.10.20.22.4.1" /> <id nullFlavor="NA&quot ; /> <code codeSystem="local" code="LBGM" displayName="L900.0530" /> <statusCode code="completed " /> <component> <observation moodCode="EVN& quot; classCode="OBS"> <templateId root=" 2.16.840.1.967012.10.20.22.4.2" /> <id nullFlavor="NA& quot; /> <code codeSystem="local" code="900.0530& quot; displayName="GLUCOMETER" /> <statusCode code=& quot;completed" /> <effectiveTime value="867522952531& quot; /> <value unit="mg/dL" xsi:type="PQ" value="88" /> <interpretationCode codeSystem=" local"code="N" /> <referenceRange> & lt;observationRange> <text>65-110</text> </ observationRange> </referenceRange> </observation&gt ; </component> </organizer> </entry> <entry> <organizer moodCode="EVN" classCode="BATTERY"> <templateId root="2.16.840.1.675828.10.20.22.4.1" /> < id nullFlavor="NA" /> <code codeSystem="local" code="LCBC" displayName="L100.0050"/> < statusCode code="completed" /> <component> < observation moodCode="EVN" classCode="OBS"> < templateId root="2.16.840.1.883179.10.20.22.4.2" /> < id nullFlavor="NA" /> <code codeSystem="local&quot ; code="100.0150" displayName="WBC - WHITE BLOOD COUNT" /&gt ; <statusCode code="completed" /> < effectiveTime value="147423659204" /> <value unit=&quot ;T/MM3" xsi:type="PQ" value="7.2" /> < interpretationCode codeSystem="local" code="N" /> <referenceRange> <observationRange> < text>4.5-11.0</text> </observationRange> < /referenceRange> </observation> </component> &lt ;component> <observation moodCode="EVN" classCode=" OBS"> <templateId root="2.16.840.1.011206.10.20.22.4.2& quot; /> <id nullFlavor="NA" /> <code codeSystem="local" code="100.0250" displayName="RED BLOOD COUNT" /> <statusCode code="completed" /&gt ; <effectiveTime value="709360069214" /> < value unit="M/MM3" xsi:type="PQ" value="3.60" /&gt ; <interpretationCode codeSystem="local" code="L" / > <referenceRange> <observationRange> <text>4.00-5.20</text> </observationRange> </referenceRange> </observation></component> <component> <observation moodCode="EVN" classCode=& quot;OBS"> <templateId root=" 2.16.840.1.557337.10.20.22.4.2" /> <id nullFlavor="NA" /> <code codeSystem="local" code="100.0300" displayName="HGB - HEMOGLOBIN" /> <statusCode code=& quot;completed" /> <effectiveTime value="481527357335& quot; /> <value unit="GM/DL" xsi:type="PQ" value="9.7" /> <interpretationCode codeSystem=" local" code="L" /> <referenceRange> < observationRange> <text>12-16</text> < /observationRange> </referenceRange> </observation& gt; </component> <component> <observation moodCode="EVN" classCode="OBS"> <templateId root=&quot ;2.16.840.1.812548.10.20.22.4.2" /> <id nullFlavor="NA& quot; /> <code codeSystem="local" code="100.0400& quot; displayName="HCT - HEMATOCRIT" /> <statusCode code="completed" /> <effectiveTime value="886271291014&quot ; /> <value unit="%" xsi:type="PQ" value="32.1" /> <interpretationCode codeSystem=" local" code="L" /> <referenceRange> <observationRange> <text>36-46</text> </observationRange> </referenceRange> </ observation> </component> <component><observation moodCode="EVN" classCode="OBS"> <templateId root="2.16.840.1.623854.10.20.22.4.2" /> <id nullFlavor ="NA" /> <code codeSystem="local" code=" 100.0550" displayName="MEAN CORPUSCULAR VOLUME" /> & lt;statusCode code="completed" /> <effectiveTime value= "920408758138" /> <value unit="UM3" xsi:type= "PQ" value="89.2" /> <interpretationCode codeSystem="local" code="N" /> < referenceRange> <observationRange> <text> 80-100</text> </observationRange> </ referenceRange> </observation> </component> < component> <observation moodCode="EVN" classCode=" OBS"> <templateId root="2.16.840.1.172620.10.20.22.4.2& quot; /> <id nullFlavor="NA" /> <code codeSystem="local" code="100.0600" displayName="MEAN CORPUSCULAR HGB" /> <statusCode code="completed" /&gt ; <effectiveTime value="318731890994" /> < value unit="UUG" xsi:type="PQ" value="26.9" /> <interpretationCode codeSystem="local" code="N&quot ; /> <referenceRange> <observationRange> <text>26-34</text> </observationRange> </referenceRange> </observation> </component> <component> <observation moodCode="EVN" classCode= "OBS"> <templateId root=" 2.16.840.1.341071.10.20.22.4.2" /> <id nullFlavor="NA& quot; /> <code codeSystem="local" code="100.0650& quot; displayName="MEAN CORPUSCULAR HGB CONC([facility]" /> < statusCode code="completed" /> <effectiveTime value=& quot;149734322896" /> <value unit="GM/DL" xsi:type ="PQ" value="30.2" /> <interpretationCode codeSystem="local" code="L" /> < referenceRange> <observationRange> <text> 31-37</text> </observationRange> </referenceRange&gt ; </observation> </component> <component> <observation moodCode="EVN" classCode="OBS"> <templateId root="2.16.840.1.206110.10.20.22.4.2" /> < id nullFlavor="NA" /> <code codeSystem="local&quot ; code="100.0750" displayName="RDW STANDARD DEVIATION" /&gt ; <statusCode code="completed" /> < effectiveTime value="714880094558" /> <value unit=&quot ;FL" xsi:type="PQ" value="50.4" /> < interpretationCode codeSystem="local" code="H" /> <referenceRange> <observationRange> <text> 36.9-50.2</text> </observationRange> </ referenceRange> </observation> </component> < component> <observation moodCode="EVN" classCode=" OBS"> <templateId root="2.16.840.1.717802.10.20.22.4.2&quot ; /> <id nullFlavor="NA" /> <code codeSystem="local" code="100.0850" displayName="PLT - PLATELET COUNT" /> <statusCode code="completed" /& gt; <effectiveTime value="786882839524" /> < value unit="T/MM3" xsi:type="PQ" value="250" /&gt ; <interpretationCode codeSystem="local" code="N&quot ; /> <referenceRange> <observationRange> <text>130-400</text> </observationRange>& lt;/referenceRange> </observation> </component> <component> <observation moodCode="EVN" classCode=" OBS"> <templateId root="2.16.840.1.217420.10.20.22.4.2& quot; /> <id nullFlavor="NA" /> <code codeSystem="local" code="100.0950" displayName="MEAN PLATELET VOLUME" /> <statusCode code="completed" / > <effectiveTime value="135898599586" /> & lt;value unit="UM3" xsi:type="PQ" value="9.6" /&gt ; <interpretationCode codeSystem="local" code="N&quot ; /> <referenceRange> <observationRange> <text>9.4-12.4</text> </observationRange&gt ; </referenceRange> </observation> </ component> <component> <observation moodCode="EVN& quot; classCode="OBS"> <templateId root=" 2.16.840.1.718929.10.20.22.4.2" /> <id nullFlavor="NA& quot; /> <code codeSystem="local" code="100.1050& quot; displayName="NEUTROPHILS % (AUTO)" /> < statusCode code="completed" /> <effectiveTime value=& quot;358717824619" /> <value unit="%" xsi: type="PQ" value="69.2" /> < interpretationCode codeSystem="local" code="H" /> <referenceRange> <observationRange> < text>33-66</text> </observationRange> </ referenceRange> </observation> </component> < component> <observation moodCode="EVN" classCode=" OBS"> <templateId root="2.16.840.1.986930.10.20.22.4.2& quot; /> <id nullFlavor="NA" /> <code codeSystem="local" code="100.1100" displayName=" LYMPHOCYTES % (AUTO)" /> <statusCode code=" completed" /> <effectiveTime value="172146749243" /> <value unit="%" xsi:type="PQ" value="18.0" /> <interpretationCode codeSystem=" local" code="L" /> <referenceRange> <observationRange> <text>23-45</text> </observationRange> </referenceRange> </ observation> </component> <component> < observation moodCode="EVN" classCode="OBS"> < templateId root="2.16.840.1.381478.10.20.22.4.2" /> < id nullFlavor="NA" /> <code codeSystem="local&quot ; code="100.1150" displayName="MONOCYTES % (AUTO)" / > <statusCode code="completed" /> < effectiveTime value="121601127802" /> <value unit=&quot ;%" xsi:type="PQ" value="8.6" /> & lt;interpretationCode codeSystem="local" code="N" /> <referenceRange> <observationRange> & lt;text>0-9.0</text> </observationRange> </ referenceRange> </observation> </component> < component> <observation moodCode="EVN" classCode=" OBS"> <templateId root="2.16.840.1.253218.10.20.22.4.2& quot; /> <id nullFlavor="NA" /> <code codeSystem="local" code="100.1200" displayName=" EOSINOPHILS % (AUTO)" /> <statusCodecode=" completed" /> <effectiveTime value="811935416647" /> <value unit="%" xsi:type="PQ" value=& quot;3.5" /> <interpretationCode codeSystem="local" code=& quot;N" /> <referenceRange> < observationRange> <text>0-4</text> </ observationRange> </referenceRange> </observation&gt ; </component> <component> <observation moodCode ="EVN" classCode="OBS"> <templateId root=& quot;2.16.840.1.323826.10.20.22.4.2" /> <id nullFlavor=&quot ;NA" /> <code codeSystem="local" code=" 100.1250" displayName="BASOPHILS % (AUTO)" /> <statusCode code="completed" /> <effectiveTime value="347378354241" /> <valueunit="%&quot ; xsi:type="PQ" value="0.3" /> < interpretationCode codeSystem="local" code="N" /> <referenceRange> <observationRange> <text&gt ;0-2</text> </observationRange> </ referenceRange> </observation> </component> < component> <observation moodCode="EVN" classCode=" OBS"> <templateId root="2.16.840.1.903416.10..22.4.2" /& gt; <id nullFlavor="NA" /> <code codeSystem ="local" code="100.1275" displayName="IMMATURE GRANULOCYTE % (AUTO)" /> <statusCode code=" completed" /> <effectiveTime value="910376890754" /> <value unit="%" xsi:type="PQ" value="0.4" /> <interpretationCode codeSystem=" local" code="N" /> <referenceRange> < observationRange> <text>0.0-0.5</text> & lt;/observationRange> </referenceRange> </ observation> </component> <component> < observation moodCode="EVN" classCode="OBS"> < templateId root="2.16.840.1.876668.10.20.22.4.2" /> < id nullFlavor="NA" /> <code codeSystem="local&quot ; code="100.1300" displayName="NEUTROPHILS # (AUTO)" /> <statusCode code="completed" /> <effectiveTime value="515962351479" /> <value unit="T/MM3" xsi:type="PQ" value="5.0" /> < interpretationCode codeSystem="local" code="N" /> <referenceRange> <observationRange> < text>1.8-7.7</text> </observationRange> </ referenceRange> </observation> </component> < component> <observation moodCode="EVN" classCode="OBS&quot ;> <templateId root="2.16.840.1.186919.10.20.22.4.2" /& gt; <id nullFlavor="NA" /> <code codeSystem=& quot;local" code="100.1350" displayName="LYMPHOCYTES # (AUTO )" /> <statusCode code="completed" /> <effectiveTime value="148460951864" /> <value unit=& quot;T/MM3" xsi:type="PQ" value="1.3" /> & lt;interpretationCode codeSystem="local" code="N" /> <referenceRange> <observationRange> & lt;text>1-4.8</text> </observationRange> < /referenceRange> </observation> </component> < component> <observation moodCode="EVN" classCode=" OBS"> <templateId root="2.16.840.1.930399.10.20.22.4.2& quot; /> <id nullFlavor="NA" /> <code codeSystem="local" code="100.1400" displayName=" MONOCYTES # (AUTO)" /> <statusCode code="completed" /&gt ; <effectiveTime value="308677714494" /> < value unit="T/MM3" xsi:type="PQ" value="0.6" /&gt ; <interpretationCode codeSystem="local" code="N&quot ; /> <referenceRange> <observationRange> <text>0-0.8</text> </observationRange> & lt;/referenceRange> </observation> </component> <component> <observation moodCode="EVN" classCode=& quot;OBS"> <templateId root=" 2.16.840.1.046156.10.20.22.4.2" /> <id nullFlavor="NA& quot; /> <code codeSystem="local" code="100.1450& quot; displayName="EOSINOPHILS # (AUTO)" /> < statusCode code="completed" /> <effectiveTime value=& quot;026726767403" /> <value unit="T/MM3" xsi:type="PQ " value="0.3" /> <interpretationCode codeSystem=& quot;local" code="N" /> <referenceRange> <observationRange> <text>0-0.5</text> </observationRange> </referenceRange> </ observation> </component> <component> < observation moodCode="EVN" classCode="OBS"> < templateId root="2.16.840.1.472637.10.20.22.4.2" /> < id nullFlavor="NA" /> <code codeSystem="local&quot ; code="100.1500" displayName="BASOPHILS # (AUTO)" /> <statusCode code="completed" /> < effectiveTime value="532086960850" /> <value unit=&quot ;T/MM3" xsi:type="PQ" value="0.0" /> < interpretationCode codeSystem="local" code="N" /> <referenceRange> <observationRange> < text>0-0.2</text> </observationRange> </ referenceRange> </observation> </component> < component> <observation moodCode="EVN" classCode="OBS "> <templateId root="2.16.840.1.948153.10.20.22.4.2& quot; /> <id nullFlavor="NA" /> <code codeSystem="local" code="100.1525" displayName=" IMMATURE GRANULOCYTE # (AUTO)" /> <statusCode code=" completed" /> <effectiveTime value="569496305909" /> <value unit="T/MM3" xsi:type="PQ" value=& quot;0.03" /> <interpretationCode codeSystem="local& quot; code="N" /> <referenceRange> < observationRange> <text>0.00-0.03</text> & lt;/observationRange> </referenceRange> </ observation> </component> </organizer> </entry> & lt;entry> <organizer moodCode="EVN" classCode="BATTERY& quot;> <templateId root="2.16.840.1.124476.10.20.22.4.1" /> <id nullFlavor="NA" /> <code codeSystem="local " code="LCMP" displayName="L200.0020" /> < statusCode code="completed" /> <component> < observation moodCode="EVN" classCode="OBS"> < templateId root="2.16.840.1.175400.10.20.22.4.2" /> < id nullFlavor="NA" /> <code codeSystem="local" code= "200.0097" displayName="ICTERUS" /> < statusCode code="completed" /> <effectiveTime value=& quot;661566594599" /> <value unit="" xsi:type=& quot;PQ" value="< 2" /> < interpretationCode codeSystem="local" code="N" /> <referenceRange> <observationRange> < text>0-7</text> </observationRange> </ referenceRange> </observation> </component> < component> <observation moodCode="EVN" classCode=" OBS"> <templateId root="2.16.840.1.839656.10.20.22.4.2& quot; /> <id nullFlavor="NA" /> <code codeSystem="local" code="200.0098" displayName=" HEMOLYSIS" /> <statusCode code="completed" /> <effectiveTime value="976199879956" /> < value unit="" xsi:type="PQ" value="< 15" /& gt; <interpretationCode codeSystem="local" code="N& quot; /> <referenceRange> <observationRange> <text>0-25</text> </observationRange&gt ; </referenceRange> </observation> </ component> </organizer> </entry> <entry> < organizer moodCode="EVN" classCode="BATTERY"> < templateId root="2.16.840.1.934629.10.20.22.4.1" /> <id nullFlavor="NA" /> <code codeSystem="local" code= "LMAG" displayName="L200.2000" /> <statusCode code="completed" /> <component> <observation moodCode="EVN" classCode="OBS"> <templateId root="2.16.840.1.457940.10.20.22.4.2" /> <id nullFlavor ="NA" /> <code codeSystem="local" code=" 200.2000"displayName="MAGNESIUM" /> <statusCode code="completed" /> <effectiveTime value="298907955136& quot; /> <value unit="MG/DL" xsi:type="PQ" value="1.9" /> <interpretationCode codeSystem=" local" code="N" /> <referenceRange> <observationRange> <text>1.6-2.3</text> </observationRange> </referenceRange> </ observation> </component> </organizer> </entry> & lt;entry> <organizer moodCode="EVN" classCode="BATTERY& quot;> <templateId root="2.16.840.1.390215.10.20.22.4.1" /&gt ; <id nullFlavor="NA" /> <code codeSystem=" local" code="LBGM" displayName="L900.0530" /> & lt;statusCode code="completed" /> <component> < observation moodCode="EVN" classCode="OBS"> < templateId root="2.16.840.1.716853.10.20.22.4.2" /> < id nullFlavor="NA" /> <code codeSystem="local" code="900.0530" displayName="GLUCOMETER" /> < statusCode code="completed" /> <effectiveTime value=& quot;375244993527" /> <value unit="mg/dL" xsi:type ="PQ" value="174" /> <interpretationCode codeSystem="local" code="H" /> < referenceRange> <observationRange> <text> 65-110</text> </observationRange> </ referenceRange> </observation> </component> </ organizer> </entry> <entry> <organizer moodCode="EVN " classCode="BATTERY"> <templateId root=" 2.16.840.1.305158.10.20.22.4.1" /> <id nullFlavor="NA&quot ; /> <code codeSystem="local" code="LBGM" displayName="L900.0530" /> <statusCode code="completed " /> <component> <observation moodCode="EVN& quot; classCode="OBS"> <templateId root=" 2.16.840.1.082087.10.20.22.4.2" /> <id nullFlavor="NA& quot; /> <code codeSystem="local" code="900.0530& quot; displayName="GLUCOMETER" /> <statusCode code=& quot;completed" /> <effectiveTime value="965862860957& quot; /> <value unit="mg/dL" xsi:type="PQ" value="190" /> <interpretationCode codeSystem="local" code="H" /> <referenceRange> < observationRange> <text>65-110</text></ observationRange> </referenceRange> </observation&gt ; </component> </organizer> </entry> <entry> <organizer moodCode="EVN" classCode="BATTERY"> <templateId root="2.16.840.1.151112.10.20.22.4.1" /> < id nullFlavor="NA" /> <code codeSystem="local" code="LBGM" displayName="L900.0530" /> < statusCode code="completed" /> <component> < observation moodCode="EVN" classCode="OBS"> < templateId root="2.16.840.1.667521.10.20.22.4.2" /> < id nullFlavor="NA" /> <code codeSystem="local&quot ; code="900.0530" displayName="GLUCOMETER" /> & lt;statusCode code="completed" /> <effectiveTime value= "668217425478" /> <value unit="mg/dL" xsi: type="PQ" value="163" /> <interpretationCode codeSystem="local" code="H" /> < referenceRange> <observationRange> <text> 65-110</text> </observationRange> </referenceRange& gt; </observation> </component> </organizer> & lt;/entry> <entry> <organizer moodCode="EVN" classCode ="BATTERY"> <templateId root=" 2.16.840.1.519174.10.20.22.4.1" /> <id nullFlavor="NA&quot ; /> <code codeSystem="local" code="LBGM" displayName="L900.0530" /> <statusCode code="completed " /> <component> <observation moodCode="EVN& quot; classCode="OBS"> <templateId root=" 2.16.840.1.268164.10.20.22.4.2" /> <id nullFlavor="NA& quot; /> <code codeSystem="local" code="900.0530& quot; displayName="GLUCOMETER" /> <statusCode code=& quot;completed" /> <effectiveTime value="095956477792& quot; /> <value unit="mg/dL" xsi:type="PQ" value="145" /> <interpretationCode codeSystem=" local" code="H" /> <referenceRange> <observationRange> <text>65-110</text> </observationRange> </referenceRange> </observation > </component> </organizer> </entry> <entry&gt ; <organizer moodCode="EVN" classCode="BATTERY"> <templateId root="2.16.840.1.094145.10.20.22.4.1" /> & lt;id nullFlavor="NA" /> <code codeSystem="local&quot ; code="LBGM" displayName="L900.0530" /> <statusCode code="completed" /> <component> <observation moodCode="EVN" classCode="OBS"> <templateId root="2.16.840.1.689078.10.20.22.4.2" /> <id nullFlavor ="NA" /> <code codeSystem="local" code=" 900.0530" displayName="GLUCOMETER" /> <statusCode code="completed" /> <effectiveTime value=" 363727763100" /> <value unit="mg/dL" xsi:type=& quot;PQ" value="136" /> <interpretationCode codeSystem="local" code="H" /> < referenceRange> <observationRange> <text> 65-110</text> </observationRange> </ referenceRange> </observation> </component> </ organizer> </entry> <entry> <organizer moodCode="EVN " classCode="BATTERY"> <templateId root=" 2.16.840.1.569509.10.20.22.4.1" /> <id nullFlavor="NA&quot ; /> <code codeSystem="local" code="LBGM" displayName="L900.0530" /> <statusCode code="completed " /> <component> <observation moodCode="EVN& quot; classCode="OBS"> <templateId root=" 2.16.840.1.125027.10.20.22.4.2" /> <id nullFlavor="NA" /> <code codeSystem="local" code="900.0530" displayName="GLUCOMETER" /> <statusCode code=" completed" /> <effectiveTime value="272615317713" /> <value unit="mg/dL" xsi:type="PQ" value=& quot;154" /> <interpretationCode codeSystem="local&quot ; code="H" /> <referenceRange> < observationRange> <text>65-110</text> &lt ;/observationRange> </referenceRange> </observation& gt; </component> </organizer> </entry> <entry&gt ; <organizer moodCode="EVN" classCode="BATTERY"> <templateId root="2.16.840.1.098963.10.20.22.4.1" /> & lt;idnullFlavor="NA" /> <code codeSystem="local" code="LBGM" displayName="L900.0530" /> < statusCode code="completed" /> <component> < observation moodCode="EVN" classCode="OBS"> < templateId root="2.16.840.1.413025.10.20.22.4.2" /> < id nullFlavor="NA" /> <code codeSystem="local&quot ; code="900.0530" displayName="GLUCOMETER" /> & lt;statusCode code="completed" /> <effectiveTime value= "620343699480" /> <value unit="mg/dL" xsi: type="PQ" value="165" /> <interpretationCode codeSystem="local" code="H" /> < referenceRange> <observationRange> <text>65-110< /text> </observationRange> </referenceRange> </observation> </component> </organizer> < /entry> <entry> <organizer moodCode="EVN" classCode=& quot;BATTERY"> <templateId root=" 2.16.840.1.378075.10.20.22.4.1" /> <id nullFlavor="NA&quot ; /> <code codeSystem="local" code="LBGM" displayName="L900.0530" /> <statusCode code="completed " /> <component> <observation moodCode="EVN& quot; classCode="OBS"> <templateId root=" 2.16.840.1.222095.10.20.22.4.2" /> <id nullFlavor="NA& quot; /> <codecodeSystem="local" code="900.0530& quot; displayName="GLUCOMETER" /> <statusCode code=" completed" /> <effectiveTime value="391446384198" /> <value unit="mg/dL" xsi:type="PQ" value=& quot;114" /> <interpretationCode codeSystem="local&quot ; code="H" /> <referenceRange> < observationRange> <text>65-110</text> &lt ;/observationRange> </referenceRange> </observation& gt; </component> </organizer> </entry> <entry&gt ; <organizer moodCode="EVN" classCode="BATTERY"> <templateId root="2.16.840.1.082160.10.20.22.4.1" /> & lt;id nullFlavor="NA" /> <code codeSystem="local&quot ; code="LBGM" displayName="L900.0530" /> < statusCode code="completed" /> <component> < observation moodCode="EVN" classCode="OBS"> < templateId root="2.16.840.1.734020.10.20.22.4.2" /> < id nullFlavor="NA" /> <code codeSystem="local&quot ; code="900.0530" displayName="GLUCOMETER" /> & lt;statusCode code="completed" /> <effectiveTime value= "955339763020" /> <value unit="mg/dL" xsi: type="PQ" value="155" /> <interpretationCode codeSystem="local" code="H" /> < referenceRange> <observationRange> <text>65-110& lt;/text> </observationRange> </referenceRange& gt; </observation> </component> </organizer> & lt;/entry> <entry> <organizer moodCode="EVN" classCode ="BATTERY"> <templateId root=" 2.16.840.1.277630.10.20.22.4.1" /> <id nullFlavor="NA" /&gt ; <code codeSystem="local" code="LBMP" displayName=& quot;L200.0050" /> <statusCode code="completed" /> <component> <observation moodCode="EVN" classCode=& quot;OBS"> <templateId root="2.16.840.1.773773.10..22.4.2& quot; /> <id nullFlavor="NA" /> <code codeSystem="local" code="200.0097" displayName="ICTERUS " /> <statusCode code="completed" /> & lt;effectiveTime value="047859995852" /> <value unit=& quot;" xsi:type="PQ" value="< 2" /> <interpretationCode codeSystem="local" code="N" /> <referenceRange> <observationRange> < text>0-7</text> </observationRange> </ referenceRange> </observation> </component> < component> <observation moodCode="EVN" classCode=" OBS"> <templateId root="2.16.840.1.552022.10.20.22.4.2& quot; /> <id nullFlavor="NA" /> <code codeSystem="local" code="200.0098" displayName=" HEMOLYSIS" /> <statusCode code="completed" /> <effectiveTime value="739378819516" /> <value unit="" xsi:type="PQ" value="< 15" /> <interpretationCode codeSystem="local" code="N" / > <referenceRange> <observationRange> <text>0-25</text> </observationRange> </referenceRange> </observation> </component> & lt;/organizer> </entry> <entry> <organizer moodCode=&quot ;EVN" classCode="BATTERY"> <templateId root=" 2.16.840.1.042863.10.20.22.4.1" /> <id nullFlavor="NA&quot ; /> <code codeSystem="local" code="LCBC" displayName="L100.0050" /> <statusCode code="completed " /> <component> <observation moodCode="EVN& quot;classCode="OBS"> <templateId root=" 2.16.840.1.773174.10.20.22.4.2" /> <id nullFlavor="NA& quot; /> <code codeSystem="local" code="100.0150& quot; displayName="WBC - WHITE BLOOD COUNT" /> < statusCode code="completed" /> <effectiveTime value=& quot;721721547520" /> <value unit="T/MM3" xsi:type= "PQ" value="7.0" /> <interpretationCode codeSystem=& quot;local" code="N" /> <referenceRange> <observationRange> <text>4.5-11.0</text> </observationRange> </referenceRange> </ observation> </component> <component> < observation moodCode="EVN" classCode="OBS"> < templateId root="[id number]" /> < id nullFlavor="NA" /> <code codeSystem="local&quot ; code="100.0250" displayName="RED BLOOD COUNT" /> <statusCode code="completed" /> <effectiveTime value="[id number]" /> <value unit="M/MM3" xsi:type="PQ" value="4.00" /> < interpretationCode codeSystem="local" code="N" /> <referenceRange> <observationRange> < text>4.00-5.20</text> </observationRange> &lt ;/referenceRange> </observation> </component> & lt;component> <observation moodCode="EVN" classCode=&quot ;OBS"> <templateId root="2.16.840.1.226771.10.20.22.4.2 " /> <id nullFlavor="NA" /> <code codeSystem="local" code="100.0300" displayName="HGB - HEMOGLOBIN" /> <statusCode code="completed" /> <effectiveTime value="563992002199" /> < value unit="GM/DL" xsi:type="PQ" value="10.6" /&gt ; <interpretationCode codeSystem="local" code="L&quot ; /> <referenceRange> <observationRange> <text>12-16</text> </observationRange> </referenceRange> </observation> </component& gt; <component> <observation moodCode="EVN" classCode="OBS"> <templateId root=" 2.16.840.1.725285.10.20.22.4.2" /> <id nullFlavor="NA& quot; /> <code codeSystem="local" code="100.0400& quot; displayName="HCT - HEMATOCRIT" /> <statusCode code="completed" /> <effectiveTime value=" 374117510231" /> <value unit="%" xsi:type= "PQ" value="35.8" /> <interpretationCode codeSystem="local" code="L" /> < referenceRange> <observationRange> <text> 36-46</text> </observationRange> </ referenceRange> </observation> </component> < component> <observation moodCode="EVN" classCode=" OBS"> <templateId root="2.16.840.1.139252.10.20.22.4.2& quot; /> <id nullFlavor="NA" /> <code codeSystem="local" code="100.0550" displayName="MEAN CORPUSCULAR VOLUME" /> <statusCode code="completed" /> <effectiveTime value="267050389575" /> < value unit="UM3" xsi:type="PQ" value="89.5" /> <interpretationCode codeSystem="local" code="N&quot ; /> <referenceRange> <observationRange> <text>80-100</text> </observationRange> </referenceRange> </observation> </component& gt; <component> <observation moodCode="EVN" classCode="OBS"> <templateId root=" 2.16.840.1.303971.10.20.22.4.2" /> <id nullFlavor="NA& quot; /> <code codeSystem="local" code="100.0600& quot; displayName="MEAN CORPUSCULAR HGB" /> < statusCode code="completed" /> <effectiveTime value=& quot;767477990691" /> <value unit="UUG" xsi:type=& quot;PQ" value="26.5" /> <interpretationCode codeSystem="local" code="N" /> < referenceRange> <observationRange> <text>26 -34</text> </observationRange> </ referenceRange> </observation> </component> < component> <observation moodCode="EVN" classCode=" OBS"> <templateId root="216.840.1.811463.10.20.22.4.2& quot; /> <id nullFlavor="NA" /> <code codeSystem="local" code="100.0650" displayName="MEAN CORPUSCULAR HGB CONC([facility]" /> <statusCode code=" completed" /> <effectiveTime value="932479478347" /> <value unit="GM/DL" xsi:type="PQ" value=& quot;29.6" /> <interpretationCode codeSystem="local& quot; code="L" /> <referenceRange> < observationRange> <text>31-37</text> < /observationRange> </referenceRange> </observation& gt; </component> <component> <observation moodCode="EVN" classCode="OBS"> <templateId root="2.16.840.1.725705.10.20.22.4.2" /> <id nullFlavor ="NA" /> <code codeSystem="local" code=" 100.0750" displayName="RDW STANDARD DEVIATION" /> &lt ;statusCode code="completed" /> <effectiveTime value=" 028109889279" /> <value unit="FL" xsi:type=" PQ" value="50.1" /> <interpretationCode codeSystem ="local" code="N" /> <referenceRange> <observationRange> <text>36.9-50.2</text> </observationRange> </referenceRange> & lt;/observation> </component> <component> < observation moodCode="EVN" classCode="OBS"> < templateId root="2.16.840.1.486627.10.20.22.4.2" /> < id nullFlavor="NA" /> <code codeSystem="local" code=& quot;100.0850" displayName="PLT - PLATELET COUNT" /> <statusCode code="completed" /> <effectiveTime value ="703208424767" /> <value unit="T/MM3" xsi: type="PQ" value="292" /> <interpretationCode codeSystem="local" code="N" /> < referenceRange> <observationRange> <text> 130-400</text> </observationRange> </ referenceRange> </observation> </component> < component> <observation moodCode="EVN" classCode=" OBS"> <templateId root="2.16.840.1.571357.10.20.22.4.2& quot; /> <id nullFlavor="NA" /> <code codeSystem="local" code="100.0950" displayName="MEAN PLATELET VOLUME" /> <statusCode code="completed" /> <effectiveTime value="777080350775" /> < value unit="UM3" xsi:type="PQ" value="9.5"/> <interpretationCode codeSystem="local" code="N" / ><referenceRange> <observationRange> < text>9.4-12.4</text> </observationRange> < /referenceRange> </observation> </component> &lt ;component> <observation moodCode="EVN" classCode=" OBS"> <templateId root="2.16.840.1.147595.10.20.22.4.2& quot; /> <id nullFlavor="NA" /> <code codeSystem="local" code="100.1050" displayName=" NEUTROPHILS % (AUTO)" /> <statusCode code=" completed" /> <effectiveTime value="509412933166" /> <value unit="%" xsi:type="PQ" value="58.6" /> <interpretationCode codeSystem=" local" code="N" /> <referenceRange> <observationRange> <text>33-66</text> </ observationRange> </referenceRange> </observation&gt ; </component> <component> <observation moodCode ="EVN" classCode="OBS"> <templateId root=& quot;2.16.840.1.152276.10.20.22.4.2" /> <id nullFlavor="NA&quot ; /> <code codeSystem="local" code="100.1100&quot ; displayName="LYMPHOCYTES % (AUTO)" /> < statusCode code="completed" /> <effectiveTime value=& quot;178728431975" /><value unit="%" xsi:type=&quot ;PQ" value="28.7" /> <interpretationCode codeSystem="local" code="N" /> < referenceRange> <observationRange> <text> 23-45</text> </observationRange> </ referenceRange> </observation> </component> < component> <observation moodCode="EVN" classCode=" OBS"> <templateId root="2.16.840.1.904249.10.20.22.4.2& quot; /> <id nullFlavor="NA" /> <code codeSystem="local" code="100.1150" displayName=" MONOCYTES % (AUTO)" /> <statusCode code=" completed" /> <effectiveTime value="900202167233" /> <value unit="%" xsi:type="PQ" value="8.6" /> <interpretationCode codeSystem=" local" code="N" /> <referenceRange> < observationRange> <text>0-9.0</text> < /observationRange> </referenceRange> </observation& gt; </component> <component> <observation moodCode="EVN" classCode="OBS"> <templateId root=& quot;2.16.840.1.351069.10.20.22.4.2" /> <id nullFlavor=&quot ;NA" /> <code codeSystem="local" code=" 100.1200" displayName="EOSINOPHILS % (AUTO)" /> <statusCode code="completed" /> <effectiveTime value="701752630767" /> <value unit="%& quot; xsi:type="PQ" value="3.3" /> < interpretationCode codeSystem="local" code="N" /> <referenceRange> <observationRange> < text>0-4</text> </observationRange> </ referenceRange> </observation> </component> < component> <observation moodCode="EVN" classCode=" OBS"> <templateId root="2.16.840.1.239376.10.20.22.4.2& quot; /> <id nullFlavor="NA" /> <code codeSystem="local" code="100.1250" displayName=" BASOPHILS % (AUTO)" /> <statusCode code=" completed" /> <effectiveTime value="097553487537" /> <value unit="%" xsi:type="PQ" value="0.4" /> <interpretationCode codeSystem=" local" code="N" /> <referenceRange> <observationRange> <text>0-2</text> & lt;/observationRange> </referenceRange> </ observation> </component> <component> < observation moodCode="EVN" classCode="OBS"> < templateId root="2.16.840.1.792226.10.20.22.4.2" /> < id nullFlavor="NA" /> <code codeSystem="local&quot ; code="100.1275" displayName="IMMATURE GRANULOCYTE % ( AUTO)" /> <statusCode code="completed" /> <effectiveTime value="399252298536" /> <value unit="%" xsi:type="PQ" value="0.4" /> <interpretationCode codeSystem="local" code="N" /> <referenceRange> <observationRange> <text>0.0-0.5</text> </observationRange> </referenceRange> </observation> </component&gt ; <component> <observation moodCode="EVN" classCode="OBS"> <templateId root=" 2.16.840.1.443056.10.20.22.4.2" /> <id nullFlavor="NA& quot; /> <code codeSystem="local" code="100.1300& quot; displayName="NEUTROPHILS # (AUTO)" /> < statusCode code="completed" /> <effectiveTime value=& quot;311331855279" /> <value unit="T/MM3" xsi:type ="PQ" value="4.1" /> <interpretationCode codeSystem="local" code="N" /> < referenceRange> <observationRange> <text> 1.8-7.7</text> </observationRange> </ referenceRange></observation> </component> < component> <observation moodCode="EVN" classCode=" OBS"> <templateId root="2.16.840.1.356255.10.20.22.4.2& quot; /> <id nullFlavor="NA" /> <code codeSystem="local" code="100.1350" displayName=" LYMPHOCYTES # (AUTO)" /> <statusCode code="completed" /&gt ; <effectiveTime value="812364700418" /> < value unit="T/MM3" xsi:type="PQ" value="2.0" /&gt ; <interpretationCode codeSystem="local" code="N&quot ; /> <referenceRange> <observationRange> <text>1-4.8</text> </observationRange> </referenceRange> </observation> </component&gt ; <component> <observation moodCode="EVN" classCode="OBS"> <templateId root=" 2.16.840.1.324922.10.20.22.4.2" /> <id nullFlavor="NA& quot; /> <code codeSystem="local" code="100.1400& quot; displayName="MONOCYTES # (AUTO)" /> <statusCode code="completed" /> <effectiveTime value=" 414222825046" /> <value unit="T/MM3" xsi:type=& quot;PQ" value="0.6" /> <interpretationCode codeSystem="local" code="N" /> < referenceRange> <observationRange> <text>0- 0.8</text> </observationRange> </ referenceRange> </observation> </component> < component> <observation moodCode="EVN" classCode=" OBS"> <templateId root="2.16.840.1.434648.10.20.22.4.2&quot ; /> <id nullFlavor="NA" /> <code codeSystem="local" code="100.1450" displayName=" EOSINOPHILS # (AUTO)" /> <statusCode code="completed& quot; /> <effectiveTime value="314084688179" /> <value unit="T/MM3" xsi:type="PQ" value="0.2& quot; /> <interpretationCode codeSystem="local" code=& quot;N" /> <referenceRange> < observationRange> <text>0-0.5</text> < /observationRange> </referenceRange> </observation& gt; </component> <component> <observation moodCode=& quot;EVN" classCode="OBS"> <templateId root=" 2.16.840.1.793377.10.20.22.4.2" /> <id nullFlavor="NA& quot; /> <code codeSystem="local" code="100.1500& quot; displayName="BASOPHILS # (AUTO)" /> <statusCode code="completed" /> <effectiveTime value=" 000073298524" /> <value unit="T/MM3" xsi:type=& quot;PQ" value="0.0" /> <interpretationCode codeSystem="local" code="N" /> < referenceRange> <observationRange> <text> 0-0.2</text> </observationRange> </ referenceRange> </observation> </component> < component> <observation moodCode="EVN" classCode=" OBS"> <templateId root="2.16.840.1.581908.10.20.22.4.2& quot; /> <id nullFlavor="NA" /> <code codeSystem="local" code="100.1525" displayName=" IMMATURE GRANULOCYTE # (AUTO)"/> <statusCode code=" completed" /> <effectiveTime value="335535566547" /> <value unit="T/MM3" xsi:type="PQ" value=& quot;0.03" /> <interpretationCode codeSystem="local& quot; code="N" /> <referenceRange> < observationRange> <text>0.00-0.03</text> </observationRange> </referenceRange> </ observation> </component> </organizer> </entry> & lt;entry> <organizer moodCode="EVN" classCode="BATTERY& quot;> <templateId root="2.16.840.1.880402.10.20.22.4.1" /& gt; <id nullFlavor="NA" /> <code codeSystem=" local" code="LBGM" displayName="L900.0530" /> & lt;statusCode code="completed" /> <component> &lt ;observation moodCode="EVN" classCode="OBS"> &lt ;templateId root="2.16.840.1.559561.10.20.22.4.2" /> < id nullFlavor="NA" /> <code codeSystem="local&quot ; code="900.0530" displayName="GLUCOMETER" /> & lt;statusCode code="completed" /> <effectiveTime value= "346349542765" /> <value unit="mg/dL" xsi:type= "PQ" value="107" /> <interpretationCode codeSystem=& quot;local" code="N" /> <referenceRange> <observationRange> <text>65-110</text></ observationRange> </referenceRange> </observation&gt ; </component> </organizer> </entry> <entry> <organizer moodCode="EVN" classCode="BATTERY"> <templateId root="2.16.840.1.282950.10.20.22.4.1" /> < id nullFlavor="NA" /> <code codeSystem="local" code="LBGM" displayName="L900.0530" /> < statusCode code="completed" /> <component> < observation moodCode="EVN" classCode="OBS"> < templateId root="2.16.840.1.597670.10.20.22.4.2" /> < id nullFlavor="NA" /> <code codeSystem="local&quot ; code="900.0530" displayName="GLUCOMETER" /> & lt;statusCode code="completed" /> <effectiveTime value= "039751427306" /> <value unit="mg/dL" xsi: type="PQ" value="174" /> <interpretationCode codeSystem="local" code="H" /> < referenceRange> <observationRange> <text> 65-110</text> </observationRange> </referenceRange& gt; </observation> </component> </organizer> & lt;/entry> <entry> <organizer moodCode="EVN" classCode ="BATTERY"> <templateId root=" 2.16.840.1.883347.10.20.22.4.1" /> <id nullFlavor="NA&quot ; /> <code codeSystem="local" code="LBGM" displayName="L900.0530" /> <statusCode code="completed " /> <component> <observation moodCode="EVN& quot; classCode="OBS"> <templateId root=" 2.16.840.1.178725.10.20.22.4.2" /> <id nullFlavor="NA& quot; /> <code codeSystem="local" code="900.0530& quot; displayName="GLUCOMETER" /> <statusCode code=& quot;completed" /> <effectiveTime value="806125474784& quot; /> <value unit="mg/dL" xsi:type="PQ" value="100" /> <interpretationCode codeSystem=" local" code="N" /> <referenceRange> <observationRange> <text>65-110</text> </observationRange> </referenceRange> </observation > </component> </organizer> </entry> <entry&gt ; <organizer moodCode="EVN" classCode="BATTERY"> <templateId root="2.16.840.1.418022.10.20.22.4.1" /> & lt;id nullFlavor="NA" /> <code codeSystem="local&quot ; code="LBGM" displayName="L900.0530" /> <statusCode code="completed" /> <component> <observation moodCode="EVN" classCode="OBS"> <templateId root="2.16.840.1.271536.10.20.22.4.2" /> <id nullFlavor ="NA" /> <code codeSystem="local" code=" 900.0530" displayName="GLUCOMETER" /> <statusCode code="completed" /> <effectiveTime value=" 025504649188" /> <value unit="mg/dL" xsi:type=& quot;PQ" value="148" /> <interpretationCode codeSystem="local" code="H" /> < referenceRange> <observationRange> <text> 65-110</text> </observationRange> </ referenceRange> </observation> </component> </ organizer> </entry> <entry> <organizer moodCode="EVN " classCode="BATTERY"> <templateId root=" 2.16.840.1.442125.10.20.22.4.1" /> <id nullFlavor="NA&quot ; /> <code codeSystem="local" code="LBGM" displayName="L900.0530" /> <statusCode code="completed " /> <component> <observation moodCode="EVN& quot; classCode="OBS"> <templateId root=" 2.16.840.1.149111.10.20.22.4.2" /> <id nullFlavor="NA" /> <code codeSystem="local" code="900.0530" displayName="GLUCOMETER" /> <statusCode code=" completed" /> <effectiveTime value="979918492322" /> <value unit="mg/dL" xsi:type="PQ" value=& quot;107" /> <interpretationCode codeSystem="local&quot ; code="N" /> <referenceRange> < observationRange> <text>65-110</text> &lt ;/observationRange> </referenceRange> </observation& gt; </component> </organizer> </entry> <entry&gt ; <organizer moodCode="EVN" classCode="BATTERY"> <templateId root="2.16.840.1.622905.10.20.22.4.1" /> & lt;idnullFlavor="NA" /> <code codeSystem="local" code="LBGM" displayName="L900.0530" /> < statusCode code="completed" /> <component> < observation moodCode="EVN" classCode="OBS"> < templateId root="2.16.840.1.656972.10.20.22.4.2" /> < id nullFlavor="NA" /> <code codeSystem="local&quot ; code="900.0530" displayName="GLUCOMETER" /> & lt;statusCode code="completed" /> <effectiveTime value= "447069512163" /> <value unit="mg/dL" xsi: type="PQ" value="143" /> <interpretationCode codeSystem="local" code="H" /> < referenceRange> <observationRange> <text>65-110< /text> </observationRange> </referenceRange> </observation> </component> </organizer> < /entry> <entry> <organizer moodCode="EVN" classCode=& quot;BATTERY"> <templateId root=" 2.16.840.1.482809.10.20.22.4.1" /> <id nullFlavor="NA&quot ; /> <code codeSystem="local" code="LBGM" displayName="L900.0530" /> <statusCode code="completed " /> <component> <observation moodCode="EVN& quot; classCode="OBS"> <templateId root=" 2.16.840.1.314029.10.20.22.4.2" /> <id nullFlavor="NA& quot; /> <codecodeSystem="local" code="900.0530& quot; displayName="GLUCOMETER" /> <statusCode code=" completed" /> <effectiveTime value="327655343489" /> <value unit="mg/dL" xsi:type="PQ" value=& quot;88" /> <interpretationCode codeSystem="local&quot ; code="N" /> <referenceRange> < observationRange> <text>65-110</text> &lt ;/observationRange> </referenceRange> </observation& gt; </component> </organizer> </entry> <entry&gt ; <organizer moodCode="EVN" classCode="BATTERY"> <templateId root="2.16.840.1.538528.10.20.22.4.1" /> & lt;id nullFlavor="NA" /> <code codeSystem="local&quot ; code="LBGM" displayName="L900.0530" /> < statusCode code="completed" /> <component> < observation moodCode="EVN" classCode="OBS"> < templateId root="2.16.840.1.998943.10.20.22.4.2" /> < id nullFlavor="NA" /> <code codeSystem="local&quot ; code="900.0530" displayName="GLUCOMETER" /> & lt;statusCode code="completed" /> <effectiveTime value= "223474233069" /> <value unit="mg/dL" xsi: type="PQ" value="160" /> <interpretationCode codeSystem="local" code="H" /> < referenceRange> <observationRange> <text>65-110& lt;/text> </observationRange> </referenceRange& gt; </observation> </component> </organizer> & lt;/entry> <entry> <organizer moodCode="EVN" classCode ="BATTERY"> <templateId root=" 2.16.840.1.558670.10.20.22.4.1" /><id nullFlavor="NA" /&gt ; <code codeSystem="local" code="LCBCM" displayName= "L100.0060" /> <statusCode code="completed" /&gt ; <component> <observation moodCode="EVN" classCode=& quot;OBS"> <templateId root="2.16.840.1.212962.10.20.22.4.2& quot; /> <id nullFlavor="NA" /> <code codeSystem="local" code="100.0150" displayName="WBC - WHITE BLOOD COUNT" /> <statusCode code="completed&quot ; /> <effectiveTime value="217571871963" /> <value unit="T/MM3" xsi:type="PQ" value="8.0&quot ; /> <interpretationCode codeSystem="local" code=" N" /> <referenceRange> <observationRange&gt ; <text>4.5-11.0</text> </ observationRange> </referenceRange> </observation> </component> <component> <observation moodCode=& quot;EVN" classCode="OBS"> <templateId root=" 2.16.840.1.567695.10..22.4.2" /> <id nullFlavor="NA& quot; /> <code codeSystem="local" code="100.0250& quot; displayName="RED BLOOD COUNT" /> <statusCode code ="completed" /> <effectiveTime value="634270337780 " /> <value unit="M/MM3" xsi:type="PQ" value="4.03" /> <interpretationCode codeSystem=" local" code="N" /> <referenceRange> <observationRange> <text>4.00-5.20</text> </ observationRange> </referenceRange> </observation&gt ; </component> <component> <observation moodCode ="EVN" classCode="OBS"> <templateId root=& quot;2.16.840.1.971258.10..22.4.2" /> <id nullFlavor=&quot ;NA" /> <code codeSystem="local" code=" 100.0300" displayName="HGB - HEMOGLOBIN" /> < statusCode code="completed" /> <effectiveTime value=& quot;359941899839" /> <value unit="GM/DL" xsi:type ="PQ" value="10.8" /> <interpretationCode codeSystem="local" code="L" /> <referenceRange& gt; <observationRange> <text>12-16</text& gt; </observationRange> </referenceRange> </observation> </component> <component> &lt ;observation moodCode="EVN" classCode="OBS"> &lt ;templateId root="2.16.840.1.279484.10.20.22.4.2" /> < id nullFlavor="NA" /> <code codeSystem="local&quot ; code="100.0400" displayName="HCT - HEMATOCRIT" /> <statusCode code="completed" /> <effectiveTime value="446858314553" /> <value unit="%" xsi: type="PQ" value="36.3" /> <interpretationCode codeSystem="local" code="N" /> < referenceRange> <observationRange> <text> 36-46</text> </observationRange> </ referenceRange> </observation> </component> < component> <observation moodCode="EVN" classCode=" OBS"> <templateId root="2.16.840.1.487568.10.20.22.4.2& quot; /> <id nullFlavor="NA" /> <code codeSystem="local" code="100.0550" displayName="MEAN CORPUSCULAR VOLUME" /> <statusCode code="completed&quot ; /> <effectiveTime value="597382393555" /> <value unit="UM3" xsi:type="PQ" value="90.1" /> <interpretationCode codeSystem="local" code="N& quot; /> <referenceRange> <observationRange> <text>80-100</text> </observationRange& gt; </referenceRange> </observation> </ component> <component> <observation moodCode="EVN& quot; classCode="OBS"> <templateId root=" 2.16.840.1.438081.10.20.22.4.2" /> <id nullFlavor="NA& quot; /> <code codeSystem="local" code="100.0600& quot; displayName="MEAN CORPUSCULAR HGB" /> < statusCode code="completed" /> <effectiveTime value=" 744210660979" /> <value unit="UUG" xsi:type=" PQ" value="26.8" /> <interpretationCode codeSystem ="local" code="N" /> <referenceRange> <observationRange> <text>26-34</text> </observationRange> </referenceRange> </ observation> </component> <component> < observation moodCode="EVN" classCode="OBS"> < templateId root="2.16.840.1.893473.10.20.22.4.2" /> < id nullFlavor="NA" /> <code codeSystem="local&quot ; code="100.0650" displayName="MEAN CORPUSCULAR HGB CONC([facility]& quot; /> <statusCode code="completed" /> & lt;effectiveTime value="901794536042" /> <value unit=& quot;GM/DL" xsi:type="PQ" value="29.8" /> & lt;interpretationCode codeSystem="local" code="L" /> <referenceRange> <observationRange> <text>31 -37</text> </observationRange> </ referenceRange> </observation> </component> < component> <observation moodCode="EVN" classCode=" OBS"> <templateId root="2.16.840.1.517438.10.20.22.4.2& quot; /> <id nullFlavor="NA" /> <code codeSystem="local" code="100.0750" displayName="RDW STANDARD DEVIATION" /> <statusCode code="completed&quot ; /> <effectiveTime value="740157204869" /> <value unit="FL" xsi:type="PQ" value="50.2" / > <interpretationCode codeSystem="local" code="N& quot; /> <referenceRange> <observationRange> <text>36.9-50.2</text> </observationRange& gt; </referenceRange> </observation> </ component> <component> <observation moodCode="EVN& quot; classCode="OBS"> <templateId root=" 2.16.840.1.099903.10.20.22.4.2" /> <id nullFlavor="NA& quot; /> <code codeSystem="local" code="100.0850& quot; displayName="PLT - PLATELET COUNT" /> < statusCode code="completed" /> <effectiveTime value=& quot;923280571682" /> <value unit="T/MM3" xsi:type ="PQ" value="296" /> <interpretationCode codeSystem ="local" code="N" /> <referenceRange> <observationRange> <text>130-400</text> </observationRange> </referenceRange> </ observation> </component> <component> < observation moodCode="EVN" classCode="OBS"> < templateId root="2.16.840.1.178785.10.20.22.4.2" /><id nullFlavor="NA" /> <code codeSystem="local" code="100.0950" displayName="MEAN PLATELET VOLUME" /> <statusCode code="completed" /> < effectiveTime value="713888661981" /> <valueunit=" UM3" xsi:type="PQ" value="9.8" /> < interpretationCode codeSystem="local" code="N" /> <referenceRange><observationRange> <text>9.4- 12.4</text> </observationRange> </ referenceRange> </observation> </component> < component> <observation moodCode="EVN" classCode=" OBS"> <templateId root="2.16.840.1.616745.10.20.22.4.2" /& gt; <id nullFlavor="NA" /> <code codeSystem ="local" code="100.1650" displayName="NEUTROPHILS & #37; (MANUAL)" /> <statusCode code="completed"/&gt ; <effectiveTime value="766704600027" /> < value unit="%" xsi:type="PQ" value="58.0" /> <interpretationCode codeSystem="local" code="N& quot; /> <referenceRange> <observationRange> <text>33-66</text> </observationRange&gt ; </referenceRange> </observation> </ component> <component> <observation moodCode="EVN& quot; classCode="OBS"> <templateId root=" 2.16.840.1.898629.10.20.22.4.2" /> <id nullFlavor="NA& quot; /> <code codeSystem="local" code="100.1750& quot; displayName="BAND NEUTROPHILS %" /> < statusCode code="completed" /> <effectiveTime value=" 583081168553" /> <value unit="%" xsi:type= "PQ" value="2.0" /> <interpretationCode codeSystem="local" code="N" /> < referenceRange> <observationRange> <text> 0-6</text> </observationRange> </ referenceRange> </observation> </component> < component> <observation moodCode="EVN" classCode=" OBS"> <templateId root="[id number]& quot; /> <id nullFlavor="NA" /> <code codeSystem="local" code="100.1850" displayName=" LYMPHOCYTES % (MANUAL)" /> <statusCode code=" completed" /> <effectiveTime value="[id number]" /> <value unit="%" xsi:type="PQ" value="32.0" /> <interpretationCode codeSystem=" local" code="N" /> <referenceRange> <observationRange> <text>23-45</text> < /observationRange> </referenceRange> </observation& gt; </component> <component> <observation moodCode="EVN" classCode="OBS"> <templateId root="[id number]" /> <id nullFlavor ="NA" /> <code codeSystem="local" code=" 100.1950" displayName="MONOCYTES % (MANUAL)" /> <statusCode code="completed" /> < effectiveTimevalue="994551253603" /> <value unit=" %" xsi:type="PQ" value="5.0" /> &lt ;interpretationCode codeSystem="local" code="N" /> <referenceRange> <observationRange> < text>0-9.0</text> </observationRange> </ referenceRange> </observation> </component> < component> <observation moodCode="EVN" classCode=" OBS"> <templateId root="2.16.840.1.598642.10.20.22.4.2& quot; /> <id nullFlavor="NA" /> <code codeSystem="local" code="100.2050" displayName=" EOSINOPHILS % (MANUAL)" /> <statusCode code=" completed" /> <effectiveTime value="878755647600" /> <value unit="%" xsi:type="PQ" value="3.0" /> <interpretationCode codeSystem=" local" code="N" /> <referenceRange> <observationRange> <text>0-4</text> & lt;/observationRange> </referenceRange> </ observation> </component> <component> < observation moodCode="EVN" classCode="OBS"> < templateId root="2.16.840.1.401909.10..22.4.2" /> < id nullFlavor="NA" /> <code codeSystem="local&quot ; code="100.2600" displayName="BAND NEUTROPHILS #" /> <statusCode code="completed" /> < effectiveTime value="884798558463" /> <value unit=&quot ;T/MM3" xsi:type="PQ" value="0.2" /> < interpretationCode codeSystem="local" code="N" /> <referenceRange> <observationRange> < text /> </observationRange> </referenceRange&gt ; </observation> </component> <component> <observation moodCode="EVN" classCode="OBS"> <templateId root="2.16.840.1.983458.10.20.22.4.2" /> <id nullFlavor="NA" /> <code codeSystem="local& quot; code="100.2650" displayName="NEUTROPHILS # (MANUAL)" / > <statusCode code="completed" /> < effectiveTime value="770408696423" /> <value unit=&quot ;T/MM3" xsi:type="PQ" value="4.6" /> < interpretationCode codeSystem="local" code="N" /> <referenceRange> <observationRange> < text>1.8-7.7</text> </observationRange> </ referenceRange> </observation> </component> < component> <observation moodCode="EVN" classCode=" OBS"> <templateId root="2.16.840.1.611201.10.20.22.4.2& quot; /> <id nullFlavor="NA" /> <code codeSystem="local" code="100.2700" displayName=" LYMPHOCYTES # (MANUAL)" /> <statusCode code="completed& quot; /> <effectiveTime value="201448178991" /> <value unit="T/MM3" xsi:type="PQ" value="2.6& quot; /> <interpretationCode codeSystem="local" code=& quot;N" /> <referenceRange> < observationRange> <text>1-4.8</text> </ observationRange> </referenceRange> </observation&gt ; </component> <component> <observation moodCode ="EVN" classCode="OBS"> <templateId root=& quot;2.16.840.1.950591.10.20.22.4.2" /> <id nullFlavor=&quot ;NA" /> <code codeSystem="local" code=" 100.2750" displayName="MONOCYTES # (MANUAL)" /> < statusCode code="completed" /> <effectiveTime value=& quot;141470799056" /> <value unit="T/MM3" xsi:type ="PQ" value="0.4" /> <interpretationCode codeSystem="local" code="N" /> < referenceRange> <observationRange> <text> 0-0.8</text> </observationRange> </ referenceRange> </observation> </component> < component> <observation moodCode="EVN" classCode=" OBS"> <templateId root="2.16.840.1.904214.10.20.22.4.2& quot; /> <id nullFlavor="NA" /> <code codeSystem="local" code="100.2800" displayName=" EOSINOPHILS # (MANUAL)" /> <statusCode code="completed& quot; /> <effectiveTime value="346109529276"/> <value unit="T/MM3" xsi:type="PQ" value="0.2& quot; /> <interpretationCode codeSystem="local" code=& quot;N" /> <referenceRange> < observationRange> <text>0-0.5</text> </ observationRange> </referenceRange> </observation&gt ; </component> <component> <observation moodCode ="EVN" classCode="OBS"> <templateId root=& quot;2.16.840.1.221386.10.20.22.4.2" /> <id nullFlavor="NA&quot ; /> <code codeSystem="local" code="100.4595&quot ; displayName="RBC MORPHOLOGY" /> <statusCode code=& quot;completed" /> <effectiveTime value="902685616168& quot; /> <value unit="" xsi:type="PQ" value=& quot;NORMAL" /> <interpretationCodecodeSystem="local& quot; code="N" /> <referenceRange> < observationRange> <text /> </ observationRange> </referenceRange> </observation&gt ; </component> </organizer> </entry> <entry> <organizer moodCode="EVN" classCode="BATTERY"> &lt ;templateId root="2.16.840.1.297204.10.20.22.4.1" /> <id nullFlavor="NA" /> <code codeSystem="local" code= "LCMP" displayName="L200.0020" /> <statusCode code="completed" /> <component><observation moodCode= "EVN" classCode="OBS"> <templateId root=&quot ;2.16.840.1.195729.10.20.22.4.2" /> <id nullFlavor="NA& quot; /> <code codeSystem="local" code="200.0097" displayName="ICTERUS" /> <statusCode code=" completed" /> <effectiveTime value="326602305209" /> <value unit="" xsi:type="PQ" value="& amp;lt; 2" /> <interpretationCode codeSystem="local& quot; code="N" /> <referenceRange> < observationRange> <text>0-7</text> </ observationRange> </referenceRange> </observation&gt ; </component> <component> <observation moodCode ="EVN" classCode="OBS"> <templateId root=& quot;2.16.840.1.937122.10.20.22.4.2" /> <id nullFlavor=&quot ;NA" /> <code codeSystem="local" code=" 200.0098" displayName="HEMOLYSIS" /> <statusCode code="completed" /> <effectiveTime value=" 949851706102" /><value unit="" xsi:type="PQ" value="< 15" /> <interpretationCode codeSystem=& quot;local" code="N" /> <referenceRange> <observationRange> <text>0-25</text> </observationRange> </referenceRange> </ observation> </component> </organizer> </entry> & lt;entry> <organizer moodCode="EVN" classCode="BATTERY& quot;> <templateId root="2.16.840.1.513798.10.20.22.4.1" /& gt; <id nullFlavor="NA" /> <code codeSystem=" local" code="LBGM" displayName="L900.0530" /> & lt;statusCode code="completed" /> <component> &lt ;observation moodCode="EVN" classCode="OBS"> &lt ;templateId root="2.16.840.1.590659.10.20.22.4.2" /> < id nullFlavor="NA" /> <code codeSystem="local&quot ; code="900.0530" displayName="GLUCOMETER" /> & lt;statusCode code="completed" /> <effectiveTime value=& quot;747370766803" /> <value unit="mg/dL" xsi:type ="PQ" value="117" /> <interpretationCode codeSystem="local" code="H" /> < referenceRange> <observationRange> <text> 65-110</text> </observationRange> </ referenceRange> </observation> </component> </ organizer> </entry> <entry> <organizer moodCode="EVN " classCode="BATTERY"> <templateId root=" 2.16.840.1.341312.10.20.22.4.1" /> <id nullFlavor="NA&quot ; /> <code codeSystem="local" code="LBGM" displayName="L900.0530" /> <statusCode code="completed " /> <component> <observation moodCode="EVN" classCode="OBS"> <templateId root=" 2.16.840.1.659888.10.20.22.4.2" /> <id nullFlavor="NA& quot; /> <code codeSystem="local" code="900.0530&quot ; displayName="GLUCOMETER" /> <statusCode code=" completed" /> <effectiveTime value="136914593171" /> <value unit="mg/dL" xsi:type="PQ" value=& quot;109" /> <interpretationCode codeSystem="local&quot ; code="N" /> <referenceRange> < observationRange> <text>65-110</text> &lt ;/observationRange> </referenceRange> </observation& gt; </component> </organizer> </entry> <entry&gt ; <organizer moodCode="EVN" classCode="BATTERY"> <templateId root="2.16.840.1.112057.10.20.22.4.1" /> & lt;id nullFlavor="NA" /> <codecodeSystem="local" code="LBGM" displayName="L900.0530" /> < statusCode code="completed" /> <component> < observation moodCode="EVN" classCode="OBS"> < templateId root="2.16.840.1.738671.10.20.22.4.2" /> < id nullFlavor="NA" /> <code codeSystem="local&quot ; code="900.0530" displayName="GLUCOMETER" /> & lt;statusCode code="completed" /> <effectiveTime value= "949312667805" /> <value unit="mg/dL" xsi:type ="PQ" value="133" /> <interpretationCode codeSystem=& quot;local" code="H" /> <referenceRange> <observationRange> <text>65-110</text> < /observationRange> </referenceRange> </observation& gt; </component> </organizer> </entry> <entry&gt ; <organizer moodCode="EVN" classCode="BATTERY"> <templateId root="2.16.840.1.844635.10.20.22.4.1" /> & lt;id nullFlavor="NA" /> <code codeSystem="local&quot ; code="LCBC" displayName="L100.0050" /> < statusCode code="completed" /> <component> < observation moodCode="EVN" classCode="OBS"> < templateId root="2.16.840.1.252848.10.20.22.4.2" /> < id nullFlavor="NA" /> <code codeSystem="local&quot ; code="100.0150" displayName="WBC - WHITE BLOOD COUNT" /&gt ; <statusCode code="completed" /> < effectiveTime value="503532540807" /> <value unit=&quot ;T/MM3" xsi:type="PQ" value="7.9" /> < interpretationCode codeSystem="local" code="N" /> <referenceRange> <observationRange> <text> 4.5-11.0</text> </observationRange> </ referenceRange> </observation> </component>< component> <observation moodCode="EVN" classCode=" OBS"> <templateId root="2.16.840.1.377997.10.20.22.4.2" /> <id nullFlavor="NA" /> <code codeSystem="local" code="100.0250" displayName="RED BLOOD COUNT" /> <statusCode code="completed" /&gt ; <effectiveTime value="749763845272" /> <value unit="M/MM3" xsi:type="PQ" value="3.96" /> <interpretationCode codeSystem="local" code="L" /& gt; <referenceRange> <observationRange> <text>4.00-5.20</text> </observationRange> </referenceRange> </observation> </component& gt; <component> <observation moodCode="EVN" classCode=& quot;OBS"> <templateId root=" 2.16.840.1.463309.10.20.22.4.2" /> <id nullFlavor="NA& quot; /> <code codeSystem="local" code="100.0300&quot ; displayName="HGB - HEMOGLOBIN" /> <statusCode code=& quot;completed" /> <effectiveTime value="936220049371& quot; /> <value unit="GM/DL" xsi:type="PQ" value="10.8" /> <interpretationCode codeSystem=" local" code="L" /> <referenceRange> <observationRange> <text>12-16</text> </observationRange> </referenceRange> </observation&gt ; </component> <component> <observation moodCode ="EVN" classCode="OBS"> <templateId root=& quot;2.16.840.1.592702.10.20.22.4.2" /> <id nullFlavor=&quot ;NA" /> <code codeSystem="local" code=" 100.0400" displayName="HCT - HEMATOCRIT" /> < statusCode code="completed" /> <effectiveTime value=& quot;863867248355" /> <value unit="%" xsi: type="PQ" value="35.0" /> < interpretationCode codeSystem="local" code="L" /> < referenceRange> <observationRange> <text> 36-46</text> </observationRange> </ referenceRange> </observation> </component> < component> <observation moodCode="EVN" classCode=" OBS"> <templateId root="2.16.840.1.598510.10.20.22.4.2& quot; /> <id nullFlavor="NA" /> <code codeSystem="local" code="100.0550" displayName="MEAN CORPUSCULAR VOLUME" /> <statusCode code="completed&quot ; /> <effectiveTime value="663376824412" /> < value unit="UM3" xsi:type="PQ" value="88.4" /> <interpretationCode codeSystem="local" code="N&quot ; /> <referenceRange> <observationRange> <text>80-100</text> </observationRange> </referenceRange> </observation> </component > <component> <observation moodCode="EVN" classCode="OBS"> <templateId root=" 2.16.840.1.119019.10.20.22.4.2" /> <id nullFlavor="NA& quot; /> <code codeSystem="local" code="100.0600& quot; displayName="MEAN CORPUSCULAR HGB" /> < statusCode code="completed" /> <effectiveTime value=& quot;001754220461" /> <value unit="UUG" xsi:type=& quot;PQ" value="27.3" /> <interpretationCode codeSystem="local" code="N" /> < referenceRange> <observationRange> <text> 26-34</text> </observationRange> </referenceRange > </observation> </component> <component> <observation moodCode="EVN" classCode="OBS"> <templateId root="2.16.840.1.156236.10.20.22.4.2" /> <id nullFlavor="NA"/> <code codeSystem=&quot ;local" code="100.0650" displayName="MEAN CORPUSCULAR HGB CONC([facility]" /> <statusCode code="completed" /> <effectiveTime value="532955524675" /> <value unit="GM/DL"xsi:type="PQ" value="30.9" /> <interpretationCode codeSystem="local" code="L" /&gt ; <referenceRange> <observationRange> <text>31-37</text> </observationRange> </referenceRange> </observation> </component> <component> <observation moodCode="EVN" classCode= "OBS"> <templateId root=" 2.16.840.1.020040.10.20.22.4.2" /> <id nullFlavor="NA& quot; /> <code codeSystem="local" code="100.0750" displayName="RDW STANDARD DEVIATION" /> <statusCode code="completed" /> <effectiveTime value=" 578707324186" /> <value unit="FL" xsi:type=" PQ" value="49.7" /> <interpretationCode codeSystem ="local" code="N" /> <referenceRange> <observationRange> <text>36.9-50.2</text&gt ; </observationRange> </referenceRange> &lt ;/observation> </component> <component> < observation moodCode="EVN" classCode="OBS"> < templateId root="2.16.840.1.223771.10.20.22.4.2" /> < id nullFlavor="NA" /> <code codeSystem="local&quot ; code="100.0850" displayName="PLT - PLATELET COUNT" /> <statusCode code="completed" /> < effectiveTime value="975743074750" /> <value unit=&quot ;T/MM3" xsi:type="PQ" value="297" /> < interpretationCode codeSystem="local" code="N" /> &lt ;referenceRange> <observationRange> <text&gt ;130-400</text> </observationRange> </ referenceRange> </observation> </component> < component> <observation moodCode="EVN"classCode="OBS "> <templateId root="2.16.840.1.020424.10.20.22.4.2& quot; /> <id nullFlavor="NA" /> <code codeSystem="local" code="100.0950" displayName="MEAN PLATELET VOLUME" /> <statusCode code="completed" / > <effectiveTime value="009003268555" /> < value unit="UM3" xsi:type="PQ" value="10.2" /> <interpretationCode codeSystem="local" code="N&quot ; /> <referenceRange> <observationRange> <text>9.4-12.4</text> </observationRange&gt ; </referenceRange> </observation> </ component> <component> <observation moodCode="EVN& quot; classCode="OBS"> <templateId root=" 2.16.840.1.401585.10.20.22.4.2" /> <id nullFlavor="NA& quot; /> <code codeSystem="local" code="100.1050& quot; displayName="NEUTROPHILS % (AUTO)" /> < statusCode code="completed" /> <effectiveTime value=& quot;941190813916" /> <value unit="%" xsi: type="PQ" value="59.9" /> < interpretationCode codeSystem="local" code="N" /> <referenceRange> <observationRange> < text>33-66</text> </observationRange> </ referenceRange> </observation> </component> < component> <observation moodCode="EVN" classCode=" OBS"> <templateId root="2.16.840.1.374831.10.20.22.4.2& quot; /> <id nullFlavor="NA" /> <code codeSystem="local" code="100.1100" displayName=" LYMPHOCYTES % (AUTO)" /> <statusCode code=" completed" /> <effectiveTime value="416441243300" /> <value unit="%" xsi:type="PQ" value="29.5" /> <interpretationCode codeSystem=" local" code="N" /> <referenceRange>< observationRange> <text>23-45</text> < /observationRange> </referenceRange> </observation& gt; </component> <component> <observation moodCode="EVN" classCode="OBS"> <templateId root="2.16.840.1.573656.10.20.22.4.2" /> <id nullFlavor ="NA" /> <code codeSystem="local" code=" 100.1150" displayName="MONOCYTES % (AUTO)" /> <statusCode code="completed" /> <effectiveTime value ="312766481189" /> <value unit="%" xsi:type="PQ" value="6.7" /> < interpretationCode codeSystem="local" code="N" /> <referenceRange> <observationRange> < text>0-9.0</text> </observationRange> </ referenceRange> </observation> </component> < component> <observation moodCode="EVN" classCode="OBS& quot;> <templateIdroot="2.16.840.1.019396.10.20.22.4.2&quot ; /> <id nullFlavor="NA" /> <code codeSystem="local" code="100.1200" displayName=" EOSINOPHILS % (AUTO)" /> <statusCode code=" completed" /> <effectiveTime value="635664427652" /> <value unit="%" xsi:type="PQ" value="2.3" /> <interpretationCode codeSystem=" local" code="N" /> <referenceRange> <observationRange> <text>0-4</text> & lt;/observationRange> </referenceRange> </ observation> </component> <component> < observation moodCode="EVN" classCode="OBS"> < templateId root="2.16.840.1.839107.10.20.22.4.2" /> < id nullFlavor="NA" /> <code codeSystem="local&quot ; code="100.1250" displayName="BASOPHILS % (AUTO)" / > <statusCode code="completed" /> < effectiveTimevalue="607975253694" /> <value unit=" %" xsi:type="PQ" value="0.8" /> &lt ;interpretationCode codeSystem="local" code="N" /> <referenceRange> <observationRange> < text>0-2</text> </observationRange> </ referenceRange> </observation> </component> < component> <observation moodCode="EVN" classCode=" OBS"> <templateId root="2.16.840.1.964338.10.20.22.4.2& quot; /> <id nullFlavor="NA" /> <code codeSystem="local" code="100.1275" displayName=" IMMATURE GRANULOCYTE % (AUTO)" /> <statusCode code=& quot;completed" /> <effectiveTime value="168301845564& quot; /> <value unit="%" xsi:type="PQ&quot ; value="0.8" /> <interpretationCode codeSystem=" local" code="H" /> <referenceRange> <observationRange> <text>0.0-0.5</text> </observationRange> </referenceRange> </ observation> </component> <component> < observation moodCode="EVN" classCode="OBS"> < templateId root="2.16.840.1.735990.10.20.22.4.2" /> < id nullFlavor="NA" /> <code codeSystem="local&quot ; code="100.1300" displayName="NEUTROPHILS # (AUTO)" /> <statusCode code="completed" /> <effectiveTime value="727697562335" /> <value unit="T/MM3" xsi:type="PQ" value="4.7" /> < interpretationCode codeSystem="local" code="N" /> < referenceRange> <observationRange> <text> 1.8-7.7</text> </observationRange> </ referenceRange> </observation> </component> < component> <observation moodCode="EVN" classCode=" OBS"> <templateId root="2.16.840.1.982375.10.20.22.4.2& quot; /> <id nullFlavor="NA" /> <code codeSystem="local" code="100.1350" displayName=" LYMPHOCYTES # (AUTO)" /> <statusCode code="completed& quot; /> <effectiveTime value="791786364906" /> & lt;value unit="T/MM3" xsi:type="PQ" value="2.3" /& gt; <interpretationCode codeSystem="local" code="N& quot; /> <referenceRange> <observationRange> <text>1-4.8</text> </observationRange&gt ; </referenceRange> </observation> </ component> <component> <observation moodCode="EVN& quot; classCode="OBS"> <templateId root=" 2.16.840.1.506142.10.20.22.4.2" /> <id nullFlavor="NA& quot; /> <code codeSystem="local" code="100.1400& quot; displayName="MONOCYTES # (AUTO)" /> <statusCode code="completed" /> <effectiveTime value=" 643199806787" /> <value unit="T/MM3" xsi:type=& quot;PQ" value="0.5" /> <interpretationCode codeSystem="local" code="N" /> < referenceRange> <observationRange> <text> 0-0.8</text> </observationRange> </referenceRange& gt; </observation> </component> <component> <observation moodCode="EVN" classCode="OBS"> <templateId root="2.16.840.1.512614.10.20.22.4.2" /> <id nullFlavor="NA" /> <code codeSystem=&quot ;local" code="100.1450" displayName="EOSINOPHILS # (AUTO)& quot; /> <statusCode code="completed" /> & lt;effectiveTime value="181395080886" /> <value unit=& quot;T/MM3" xsi:type="PQ" value="0.2" /> & lt;interpretationCode codeSystem="local" code="N" /> <referenceRange> <observationRange> <text& gt;0-0.5</text> </observationRange> </ referenceRange> </observation> </component> < component> <observation moodCode="EVN" classCode=" OBS"> <templateId root="2.16.840.1.982143.10.20.22.4.2& quot; /> <id nullFlavor="NA" /> < codecodeSystem="local" code="100.1500" displayName=" BASOPHILS # (AUTO)" /> <statusCode code="completed&quot ; /> <effectiveTime value="634174641691" /> <value unit="T/MM3" xsi:type="PQ" value="0.1&quot ; /> <interpretationCode codeSystem="local" code=" N" /> <referenceRange> <observationRange&gt ; <text>0-0.2</text> </observationRange& gt; </referenceRange> </observation> </ component> <component> <observation moodCode="EVN& quot; classCode="OBS"> <templateId root=" 2.16.840.1.768960.10.20.22.4.2" /> <id nullFlavor="NA& quot; /> <code codeSystem="local" code="100.1525& quot; displayName="IMMATURE GRANULOCYTE # (AUTO)" /> < statusCode code="completed" /> <effectiveTime value=& quot;709428619897" /> <value unit="T/MM3" xsi:type ="PQ" value="0.06" /> <interpretationCode codeSystem="local" code="H" /> < referenceRange> <observationRange> <text> 0.00-0.03</text> </observationRange> </ referenceRange> </observation> </component> </ organizer> </entry> <entry> <organizer moodCode="EVN " classCode="BATTERY"> <templateId root=" 2.16.840.1.231685.10.20.22.4.1" /> <id nullFlavor="NA&quot ; /> <code codeSystem="local" code="LBMP" displayName="L200.0050" /> <statusCode code="completed " /> <component> <observation moodCode="EVN& quot; classCode="OBS"> <templateId root=" 2.16.840.1.526746.10.20.22.4.2" /> <id nullFlavor="NA& quot; /> <code codeSystem="local" code="200.0097& quot; displayName="ICTERUS" /> <statusCode code=" completed" /> <effectiveTime value="677144587963" /> <value unit="" xsi:type="PQ" value="& amp;lt; 2" /> <interpretationCode codeSystem="local& quot; code="N" /> <referenceRange> < observationRange> <text>0-7</text> </ observationRange> </referenceRange> </observation&gt ; </component> <component> <observation moodCode ="EVN" classCode="OBS"> <templateId root=& quot;2.16.840.1.489233.10.20.22.4.2" /> <id nullFlavor=&quot ;NA" /> <code codeSystem="local" code=" 200.0098" displayName="HEMOLYSIS" /> <statusCode code="completed" /> <effectiveTime value=" 982476964277" /> <value unit="" xsi:type="PQ& quot; value="22" /> <interpretationCode codeSystem=& quot;local" code="N" /> <referenceRange> <observationRange> <text>0-25</text> </observationRange> </referenceRange> </ observation> </component> </organizer> </entry> & lt;entry> <organizer moodCode="EVN" classCode="BATTERY& quot;> <templateId root="2.16.840.1.686596.10.20.22.4.1" /& gt; <id nullFlavor="NA" /> <code codeSystem=" local" code="LMAG" displayName="L200.2000" /> < statusCode code="completed" /> <component> < observation moodCode="EVN" classCode="OBS"> < templateId root="2.16.840.1.383855.10.20.22.4.2" /> < id nullFlavor="NA" /> <code codeSystem="local&quot ; code="200.2000" displayName="MAGNESIUM" /> &lt ;statusCode code="completed" /> <effectiveTime value=& quot;167228630877"/> <value unit="MG/DL" xsi:type= "PQ" value="2.1" /> <interpretationCode codeSystem="local" code="N" /> < referenceRange> <observationRange> <text> 1.6-2.3</text> </observationRange> </ referenceRange> </observation> </component> </ organizer> </entry> <entry> <organizer moodCode="EVN " classCode="BATTERY"> <templateId root=" 2.16.840.1.197667.10.20.22.4.1" /> <id nullFlavor="NA&quot ; /> <code codeSystem="local" code="LBGM" displayName="L900.0530" /> <statusCode code="completed " /> <component> <observation moodCode="EVN& quot; classCode="OBS"> <templateId root=" 2.16.840.1.148287.10.20.22.4.2" /> <id nullFlavor="NA" /> <code codeSystem="local" code="900.0530" displayName="GLUCOMETER" /> <statusCode code=" completed" /> <effectiveTime value="939749838445" /> <value unit="mg/dL" xsi:type="PQ" value=& quot;112" /> <interpretationCode codeSystem="local&quot ; code="H" /> <referenceRange> < observationRange> <text>65-110</text> &lt ;/observationRange> </referenceRange> </observation& gt; </component> </organizer> </entry> <entry&gt ; <organizer moodCode="EVN" classCode="BATTERY"> <templateId root="2.16.840.1.944555.10.20.22.4.1" /> & lt;idnullFlavor="NA" /> <code codeSystem="local" code="LBGM" displayName="L900.0530" /> < statusCode code="completed" /> <component> < observation moodCode="EVN" classCode="OBS"> < templateId root="2.16.840.1.469078.10.20.22.4.2" /> < id nullFlavor="NA" /> <code codeSystem="local&quot ; code="900.0530" displayName="GLUCOMETER" /> & lt;statusCode code="completed" /> <effectiveTime value= "087597957399" /> <value unit="mg/dL" xsi: type="PQ" value="93" /> <interpretationCode codeSystem="local" code="N" /> < referenceRange> <observationRange> <text>65-110</ text> </observationRange> </referenceRange> </observation> </component> </organizer> </ entry> <entry> <organizer moodCode="EVN" classCode=& quot;BATTERY"> <templateId root=" 2.16.840.1.911136.10.20.22.4.1" /> <id nullFlavor="NA&quot ; /> <code codeSystem="local" code="LKH" displayName="L200.0148" /> <statusCode code="completed " /> <component> <observation moodCode="EVN& quot; classCode="OBS"> <templateId root=" [id number]" /> <id nullFlavor="NA& quot; /> <code codeSystem="local" code="200.0098& quot; displayName="HEMOLYSIS" /> <statusCode code=" completed" /> <effectiveTime value="[id number]" /> <value unit="" xsi:type="PQ" value="& amp;lt; 15" /> <interpretationCode codeSystem="local& quot; code="N" /> <referenceRange> < observationRange> <text>0-25</text> </ observationRange> </referenceRange> </observation&gt ; </component> </organizer> </entry> <entry> <organizer moodCode="EVN" classCode="BATTERY"> <templateId root="2.16.840.1.965672.10.20.22.4.1" /> < id nullFlavor="NA" /> <code codeSystem="local" code="MCUURINE" displayName="M153.0000" /> < statusCode code="completed" /> <component> < observation moodCode="EVN" classCode="OBS"> < templateId root="2.16.840.1.578212.10.20.22.4.2"/> <id nullFlavor="NA" /> <code codeSystem="local" code="307.0000" displayName="URINE CULTURE." /> <statusCode code="completed" /> <effectiveTime value ="904523602508" /> <value unit="CFU/ml" xsi: type="PQ" value=" " /> <interpretationCode codeSystem="local" code="S" /> < referenceRange> <observationRange> <text /&gt ; </observationRange> </referenceRange> &lt ;/observation> </component> </organizer> </entry> <entry> <organizer moodCode="EVN" classCode=" BATTERY"> <templateId root="2.16.840.1.219682.10.20.22.4.1& quot; /> <id nullFlavor="NA" /> <code codeSystem ="local" code="LBMP" displayName="L200.0050" /&gt ; <statusCode code="completed" /> <component> <observation moodCode="EVN" classCode="OBS"> <templateId root="2.16.840.1.613537.10.20.22.4.2" /> <id nullFlavor="NA" /> <code codeSystem=" local" code="200.0097" displayName="ICTERUS" /> <statusCode code="completed" /> < effectiveTime value="188004302751" /> <value unit=&quot ;" xsi:type="PQ" value="< 2" /> < interpretationCode codeSystem="local" code="N" /> <referenceRange> <observationRange> < text>0-7</text> </observationRange> </ referenceRange> </observation> </component> < component> <observation moodCode="EVN" classCode=" OBS"> <templateId root="2.16.840.1.948923.10.20.22.4.2& quot; /> <id nullFlavor="NA" /> <code codeSystem="local" code="200.0098" displayName=" HEMOLYSIS" /> <statusCode code="completed" /> <effectiveTime value="789255644843" /> < value unit="" xsi:type="PQ" value="< 15" /& gt; <interpretationCode codeSystem="local" code="N& quot; /> <referenceRange> <observationRange> <text>0-25</text> </observationRange> </referenceRange> </observation> </component&gt ; </organizer> </entry> <entry> <organizer moodCode ="EVN" classCode="BATTERY"> <templateId root=& quot;2.16.840.1.723807.10.20.22.4.1" /> <id nullFlavor="NA& quot; /> <code codeSystem="local" code="LCBC" displayName="L100.0050" /> <statusCode code="completed " /> <component> <observation moodCode="EVN& quot; classCode="OBS"> <templateId root=" 2.16.840.1.678155.10.20.22.4.2" /> <id nullFlavor="NA" / > <code codeSystem="local" code="100.0150" displayName="WBC - WHITE BLOOD COUNT" /> <statusCode code="completed" /> <effectiveTime value=" 985541710080" /> <value unit="T/MM3" xsi:type=& quot;PQ" value="5.8" /> <interpretationCode codeSystem="local" code="N" /> < referenceRange> <observationRange> <text>4.5 -11.0</text> </observationRange> </ referenceRange> </observation> </component> < component> <observation moodCode="EVN" classCode=" OBS"> <templateId root="2.16.840.1.375080.10.20.22.4.2& quot; /> <id nullFlavor="NA" /> <code codeSystem="local" code="100.0250" displayName="RED BLOOD COUNT" /> <statusCode code="completed" /&gt ; <effectiveTime value="418107748265" /> < value unit="M/MM3" xsi:type="PQ" value="4.01" /&gt ; <interpretationCode codeSystem="local" code="N&quot ; /> <referenceRange> <observationRange> <text>4.00-5.20</text> </observationRange&gt ; </referenceRange> </observation> </component> <component> <observation moodCode="EVN" classCode="OBS"> <templateId root=" 2.16.840.1.684519.10.20.22.4.2" /> <id nullFlavor="NA& quot; /> <code codeSystem="local" code="100.0300& quot; displayName="HGB - HEMOGLOBIN" /> <statusCode code="completed" /> <effectiveTime value=" 507407452533" /> <value unit="GM/DL" xsi:type=& quot;PQ" value="11.1" /> <interpretationCode codeSystem="local" code="L" /> < referenceRange> <observationRange> <text>12-16</ text> </observationRange> </referenceRange> </observation> </component> <component> <observation moodCode="EVN" classCode="OBS"> <templateId root="2.16.840.1.764715.10.20.22.4.2" /> <id nullFlavor="NA" /> <code codeSystem=" local" code="100.0400" displayName="HCT - HEMATOCRIT" / > <statusCode code="completed" /> < effectiveTime value="082432440996" /> <value unit=&quot ;%" xsi:type="PQ" value="35.2" /> & lt;interpretationCode codeSystem="local" code="L" /> <referenceRange> <observationRange> < text>36-46</text> </observationRange> </ referenceRange> </observation> </component> < component> <observation moodCode="EVN" classCode=" OBS"> <templateId root="2.16.840.1.139524.10.20.22.4.2& quot; /> <id nullFlavor="NA" /> <code codeSystem="local" code="100.0550" displayName="MEAN CORPUSCULAR VOLUME" /> <statusCode code="completed&quot ; /> <effectiveTime value="078170724300" /> <value unit="UM3" xsi:type="PQ" value="87.8" /> <interpretationCode codeSystem="local" code="N" /& gt; <referenceRange> <observationRange> <text>80-100</text> </observationRange> </ referenceRange> </observation> </component> < component> <observation moodCode="EVN" classCode=" OBS"> <templateId root="2.16.840.1.949634.10.20.22.4.2& quot; /> <id nullFlavor="NA" /> <code codeSystem="local" code="100.0600" displayName="MEAN CORPUSCULAR HGB" /> <statusCode code="completed" / > <effectiveTime value="093224877277" /> & lt;value unit="UUG" xsi:type="PQ" value="27.7" /& gt; <interpretationCode codeSystem="local" code="N& quot; /> <referenceRange> <observationRange> <text>26-34</text> </observationRange&gt ; </referenceRange> </observation> </ component> <component> <observation moodCode="EVN& quot; classCode="OBS"> <templateId root=" 2.16.840.1.510028.10.20.22.4.2" /> <id nullFlavor="NA& quot; /> <code codeSystem="local" code="100.0650& quot; displayName="MEAN CORPUSCULAR HGB CONC([facility]" /> < statusCode code="completed" /> <effectiveTime value=& quot;209014242636" /> <value unit="GM/DL" xsi:type ="PQ" value="31.5" /> <interpretationCode codeSystem="local" code="N" /> < referenceRange> <observationRange> <text> 31-37</text> </observationRange></referenceRange> </observation> </component> <component> & lt;observation moodCode="EVN" classCode="OBS"> & lt;templateId root="2.16.840.1.970954.10.20.22.4.2" /> &lt ;id nullFlavor="NA" /> <code codeSystem="local&quot ; code="100.0750" displayName="RDW STANDARD DEVIATION" /&gt ; <statusCode code="completed" /> < effectiveTime value="904070943409" /> <value unit=&quot ;FL" xsi:type="PQ" value="51.1" /> < interpretationCode codeSystem="local" code="H" /> <referenceRange> <observationRange> <text>36.9- 50.2</text> </observationRange> </ referenceRange> </observation> </component> < component> <observation moodCode="EVN" classCode=" OBS"> <templateId root="2.16.840.1.366348.10.20.22.4.2& quot; /> <id nullFlavor="NA" /> <code codeSystem="local" code="100.0850" displayName="PLT - PLATELET COUNT" /> <statusCode code="completed" /& gt; <effectiveTime value="703168238336" /> &lt ;value unit="T/MM3" xsi:type="PQ" value="241" /&gt ; <interpretationCode codeSystem="local" code="N&quot ; /> <referenceRange> <observationRange> <text>130-400</text> </observationRange> </referenceRange> </observation> </ component> <component> <observation moodCode="EVN& quot; classCode="OBS"> <templateId root=" 2.16.840.1.822022.10.20.22.4.2" /> <id nullFlavor="NA& quot; /> <code codeSystem="local" code="100.0950& quot; displayName="MEAN PLATELET VOLUME" /> < statusCode code="completed" /> <effectiveTime value=& quot;122269795053" /> <value unit="UM3" xsi:type=& quot;PQ" value="11.1" /> <interpretationCode codeSystem= "local" code="N" /> <referenceRange> <observationRange> <text>9.4-12.4</text> </observationRange> </referenceRange> </ observation> </component> <component> < observation moodCode="EVN" classCode="OBS"> < templateId root="2.16.840.1.717159.10.20.22.4.2" /> <id nullFlavor="NA" /> <code codeSystem="local" code="100.1050" displayName="NEUTROPHILS % (AUTO)" / > <statusCode code="completed" /> < effectiveTime value="037712030396" /> <value unit=&quot ;%" xsi:type="PQ" value="59.7" /> & lt;interpretationCode codeSystem="local" code="N" /> <referenceRange> <observationRange> & lt;text>33-66</text> </observationRange> < /referenceRange> </observation> </component> &lt ;component> <observation moodCode="EVN" classCode=" OBS"> <templateId root="2.16.840.1.572060.10.20.22.4.2& quot; /> <id nullFlavor="NA" /> <code codeSystem="local" code="100.1100" displayName=" LYMPHOCYTES % (AUTO)" /> <statusCode code=" completed" /> <effectiveTime value="877204226809" /> <value unit="%" xsi:type="PQ" value="27.8" /> <interpretationCode codeSystem=" local" code="N" /> <referenceRange> < observationRange> <text>23-45</text> < /observationRange> </referenceRange> </observation& gt; </component><component> <observation moodCode=& quot;EVN" classCode="OBS"> <templateId root=" 2.16.840.1.165483.10.20.22.4.2" /> <id nullFlavor="NA& quot; /> <code codeSystem="local" code="100.1150& quot; displayName="MONOCYTES % (AUTO)" /> < statusCode code="completed" /> <effectiveTime value=& quot;794612428044" /> <value unit="%" xsi: type="PQ" value="8.9" /> <interpretationCode codeSystem="local" code="N" /> < referenceRange> <observationRange> <text> 0-9.0</text> </observationRange> </ referenceRange> </observation> </component> < component> <observation moodCode="EVN" classCode=" OBS"> <templateId root="2.16.840.1.485857.10.20.22.4.2& quot; /> <id nullFlavor="NA" /> <code codeSystem="local" code="100.1200" displayName=" EOSINOPHILS % (AUTO)" /> <statusCode code=" completed" /> <effectiveTime value="719868141704" /> <value unit="%" xsi:type="PQ" value=& quot;3.1" /> <interpretationCode codeSystem="local&quot ; code="N" /> <referenceRange> < observationRange> <text>0-4</text> </ observationRange> </referenceRange> </observation&gt ; </component> <component> <observation moodCode ="EVN" classCode="OBS"> <templateId root=& quot;2.16.840.1.236699.10.20.22.4.2" /> <id nullFlavor=&quot ;NA" /> <code codeSystem="local" code="100.1250&quot ; displayName="BASOPHILS % (AUTO)" /> < statusCode code="completed" /> <effectiveTime value=& quot;553102233834" /> <value unit="%" xsi: type="PQ" value="0.5" /> <interpretationCode codeSystem="local"code="N" /> <referenceRange > <observationRange> <text>0-2</text> </observationRange> </referenceRange> </ observation> </component> <component> < observationmoodCode="EVN" classCode="OBS"> < templateId root="2.16.840.1.718642.10.20.22.4.2" /> < id nullFlavor="NA" /> <code codeSystem="local&quot ; code="100.1275" displayName="IMMATURE GRANULOCYTE %( AUTO)" /> <statusCode code="completed" /> <effectiveTime value="906566744141" /> <value unit="%" xsi:type="PQ" value="0.0" /> <interpretationCode codeSystem="local" code="N" /> <referenceRange> <observationRange> < text>0.0-0.5</text> </observationRange> </ referenceRange> </observation> </component> < component> <observationmoodCode="EVN" classCode="OBS "> <templateId root="2.16.840.1.384415.10.20.22.4.2& quot; /> <id nullFlavor="NA" /> <code codeSystem="local" code="100.1300" displayName=" NEUTROPHILS # (AUTO)" /> <statusCode code="completed& quot; /> <effectiveTime value="570343400801" /> <value unit="T/MM3" xsi:type="PQ" value="3.5& quot; /> <interpretationCode codeSystem="local" code=& quot;N" /> <referenceRange> < observationRange> <text>1.8-7.7</text> & lt;/observationRange> </referenceRange> </ observation> </component> <component> < observation moodCode="EVN" classCode="OBS"> < templateId root="2.16.840.1.425079.10.20.22.4.2" /> < id nullFlavor="NA" /> <code codeSystem="local&quot ; code="100.1350" displayName="LYMPHOCYTES # (AUTO)" /> <statusCode code="completed" /> < effectiveTime value="326784721123" /> <value unit=&quot ;T/MM3" xsi:type="PQ" value="1.6" /> < interpretationCode codeSystem="local" code="N" /> <referenceRange> <observationRange> < text>1-4.8</text> </observationRange> </ referenceRange> </observation> </component> < component> <observation moodCode="EVN" classCode=" OBS"> <templateId root="2.16.840.1.681720.10.20.22.4.2& quot; /> <id nullFlavor="NA" /> <code codeSystem="local" code="100.1400" displayName=" MONOCYTES # (AUTO)" /> <statusCode code="completed&quot ; /> <effectiveTime value="870954176833" /> <value unit="T/MM3" xsi:type="PQ" value="0.5&quot ; /> <interpretationCode codeSystem="local" code=" N" /> <referenceRange> <observationRange&gt ; <text>0-0.8</text> </observationRange& gt; </referenceRange> </observation> </ component> <component> <observation moodCode="EVN& quot; classCode="OBS"> <templateId root=" 2.16.840.1.977902.10.20.22.4.2" /> <id nullFlavor="NA& quot; /> <code codeSystem="local" code="100.1450& quot; displayName="EOSINOPHILS # (AUTO)" /> < statusCode code="completed" /> <effectiveTime value=& quot;761974748489" /> <value unit="T/MM3" xsi:type ="PQ" value="0.2" /> <interpretationCode codeSystem="local" code="N" /> < referenceRange> <observationRange> <text>0- 0.5</text> </observationRange> </ referenceRange> </observation> </component> < component> <observation moodCode="EVN" classCode=" OBS"> <templateId root="2.16.840.1.787745.10.20.22.4.2& quot; /> <id nullFlavor="NA" /> <code codeSystem="local" code="100.1500" displayName=" BASOPHILS # (AUTO)" /> <statusCode code="completed&quot ; /> <effectiveTime value="790993215499" /> <value unit="T/MM3" xsi:type="PQ" value="0.0&quot ; /> <interpretationCode codeSystem="local" code=" N" /> <referenceRange> <observationRange&gt ; <text>0-0.2</text> </observationRange& gt; </referenceRange> </observation> </ component> <component> <observation moodCode="EVN& quot; classCode="OBS"> <templateId root=" 2.16.840.1.020422.10.20.22.4.2" /> <id nullFlavor="NA& quot; /> <code codeSystem="local" code="100.1525& quot; displayName="IMMATURE GRANULOCYTE # (AUTO)" /> < statusCode code="completed" /> <effectiveTime value=& quot;775869436416" /> <value unit="T/MM3" xsi:type ="PQ" value="0.00" /> <interpretationCode codeSystem="local" code="N" /> <referenceRange> <observationRange> <text>0.00-0.03</text& gt; </observationRange> </referenceRange> </observation> </component> </organizer> </entry > <entry> <organizer moodCode="EVN" classCode=" BATTERY"> <templateId root="2.16.840.1.167731.10.20.22.4.1& quot; /> <id nullFlavor="NA" /> <code codeSystem ="local" code="LBMP" displayName="L200.0050" /&gt ; <statusCode code="completed" /> <component> <observation moodCode="EVN" classCode="OBS"> <templateId root="2.16.840.1.133027.10.20.22.4.2" /> <id nullFlavor="NA" /> <code codeSystem=" local" code="200.0097" displayName="ICTERUS" /> <statusCode code="completed" /> < effectiveTime value="945033304841" /> <value unit=&quot ;" xsi:type="PQ" value="< 2" /> < interpretationCode codeSystem="local" code="N" /> <referenceRange> <observationRange> <text& gt;0-7</text> </observationRange> </ referenceRange> </observation> </component>< component> <observation moodCode="EVN" classCode=" OBS"> <templateId root="2.16.840.1.895237.10.20.22.4.2" /> <id nullFlavor="NA" /> <code codeSystem="local" code="200.0098" displayName=" HEMOLYSIS" /> <statusCode code="completed" /> <effectiveTime value="316018153066" /> < value unit="" xsi:type="PQ" value="< 15" /& gt; <interpretationCode codeSystem="local" code="N& quot; /> <referenceRange> <observationRange> <text>0-25</text> </observationRange> </referenceRange> </observation> </ component> </organizer> </entry> <entry> < organizer moodCode="EVN" classCode="BATTERY"> < templateId root="2.16.840.1.456229.10.20.22.4.1" /> <id nullFlavor="NA" /> <code codeSystem="local" code= "LLIP" displayName="L200.1950" /> <statusCode code="completed" /> <component> <observation moodCode="EVN" classCode="OBS"> <templateId root="2.16.840.1.955622.10.20.22.4.2" /> <id nullFlavor ="NA" /> <code codeSystem="local" code=" 200.1950" displayName="LIPASE" /> <statusCode code=& quot;completed" /> <effectiveTime value="154096351809& quot; /> <value unit="U/L" xsi:type="PQ" value="308" /> <interpretationCode codeSystem=" local" code="H" /> <referenceRange> < observationRange> <text>23-300</text> &lt ;/observationRange> </referenceRange> </observation& gt; </component> </organizer> </entry> <entry&gt ; <organizer moodCode="EVN" classCode="BATTERY"> <templateId root="2.16.840.1.043436.10.20.22.4.1" /> & lt;id nullFlavor="NA" /> <code codeSystem="local&quot ; code="MCUBLOOD" displayName="M110.0195" /> < statusCode code="completed" /> <component> < observation moodCode="EVN" classCode="OBS"> < templateId root="2.16.840.1.779004.10.20.22.4.2" /> < id nullFlavor="NA" /> <code codeSystem="local&quot ; code="110.0200" displayName="ANTI-D" /> < statusCode code="completed" /> <effectiveTime value=& quot;019361198502" /> <value unit="" xsi:type=& quot;PQ" value="NO GROWTH AFTER 5 DAYS" /> <referenceRange& gt; <observationRange> <text /> & lt;/observationRange> </referenceRange> </ observation> </component> </organizer> </entry> & lt;entry> <organizer moodCode="EVN" classCode="BATTERY& quot;> <templateId root="2.16.840.1.544656.10.20.22.4.1" /& gt; <id nullFlavor="NA" /> <code codeSystem=" local" code="LLACTATEV" displayName="L200.2066" /> <statusCode code="completed" /> <component> <observation moodCode="EVN" classCode="OBS"> <templateId root="2.16.840.1.702805.10.20.22.4.2" /><id nullFlavor="NA" /> <code codeSystem="local" code="200" displayName="LACTATE - LACTIC ACID, VENOUS" /> <statusCode code="completed" /> < effectiveTime value="799897124740" /> <value unit=&quot ;MMOL/L" xsi:type="PQ" value="1.1" /> < interpretationCode codeSystem="local" code="N" /> <referenceRange> <observationRange> < text>0.6-2.2</text> </observationRange> </ referenceRange> </observation> </component> </ organizer> </entry> <entry> <organizer moodCode="EVN " classCode="BATTERY"> <templateId root=" 2.16.840.1.681339.10.20.22.4.1" /> <id nullFlavor="NA&quot ; /> <code codeSystem="local" code="RODO" displayName="L600.0100" /> <statusCode code="completed " /> <component> <observation moodCode="EVN& quot; classCode="OBS"> <templateId root=" 2.16.840.1.815404.10.20.22.4.2" /> <id nullFlavor="NA& quot; /> <code codeSystem="local" code="600.0500& quot;displayName="SPECIMEN TYPE, URINE" /> <statusCode code="completed" /> <effectiveTime value=" 549937137825" /> <value unit="" xsi:type="PQ& quot; value="CLEANCATCH-MIDSTREAM" /> < interpretationCode codeSystem="local" code="N" /> <referenceRange> <observationRange> <text /&gt ; </observationRange> </referenceRange> </ observation> </component> <component> < observation moodCode="EVN" classCode="OBS"> < templateIdroot="2.16.840.1.440234.10.20.22.4.2" /> <id nullFlavor="NA" /> <code codeSystem="local" code="600.0550" displayName="COLOR,URINE" /> &lt ;statusCode code="completed" /> <effectiveTime value=& quot;485567555912" /> <value unit="" xsi:type=& quot;PQ" value="YELLOW" /> <interpretationCode codeSystem="local" code="N" /> < referenceRange> <observationRange> <text> YELLOW</text> </observationRange> </ referenceRange> </observation> </component> < component> <observation moodCode="EVN" classCode=" OBS"> <templateId root="2.16.840.1.140512.10.20.22.4.2& quot; /> <id nullFlavor="NA" /> <code codeSystem="local" code="600.0600" displayName=" TURBIDITY, URINE" /> <statusCode code="completed" /> <effectiveTime value="116661310359" /> & lt;value unit="" xsi:type="PQ" value="CLEAR" /&gt ; <interpretationCode codeSystem="local" code="N" /& gt; <referenceRange> <observationRange> <text>CLEAR</text> </observationRange> </ referenceRange> </observation> </component> < component> <observation moodCode="EVN" classCode=" OBS"> <templateId root="2.16.840.1.687067.10.20.22.4.2& quot; /><id nullFlavor="NA" /> <code codeSystem=& quot;local" code="600.0650" displayName="SPECIFIC GRAVITY, URINE" /> <statusCode code="completed" /> <effectiveTime value="746862584195" /> <value unit="" xsi:type="PQ" value="1.025" /> <interpretationCode codeSystem="local" code="N" /> <referenceRange> <observationRange> <text& gt;1.015-1.025</text> </observationRange> </ referenceRange> </observation> </component> < component> <observation moodCode="EVN" classCode=" OBS"> <templateId root="2.16.840.1.032143.10.20.22.4.2&quot ; /> <id nullFlavor="NA" /> <code codeSystem="local" code="600.0700" displayName="PH, URINE - DIPSTICK" /> <statusCode code="completed" /> <effectiveTime value="254856609767" /> & lt;value unit=""xsi:type="PQ" value="6.0" /> <interpretationCode codeSystem="local" code="N" / > <referenceRange> <observationRange> <text>5.0-8.0</text> </observationRange> </referenceRange> </observation> </component& gt; <component><observation moodCode="EVN" classCode=& quot;OBS"> <templateId root=" 2.16.840.1.703109.10.20.22.4.2" /> <id nullFlavor="NA& quot; /> <code codeSystem="local" code="600.0750" displayName="LEUKOCYTE ESTERASE ,URINE" /> <statusCode code="completed" /> <effectiveTime value=" 236194043756" /> <value unit="" xsi:type="PQ& quot; value="1+" /> <interpretationCode codeSystem=& quot;local" code="Aa" /> <referenceRange> <observationRange> <text>NEGATIVE</text> </observationRange> </referenceRange> </ observation> </component> <component> < observation moodCode="EVN" classCode="OBS"> < templateId root="2.16.840.1.028850.10.20.22.4.2" /> < id nullFlavor="NA" /> <code codeSystem="local&quot ; code="600.0800" displayName="NITRITE,URINE" />< statusCode code="completed" /> <effectiveTime value=& quot;567521352686" /> <value unit="" xsi:type=& quot;PQ" value="NEGATIVE" /> <interpretationCode codeSystem="local" code="N" /> < referenceRange> <observationRange> <text> NEGATIVE</text> </observationRange> </ referenceRange> </observation> </component> < component> <observation moodCode="EVN" classCode=" OBS"> <templateId root="2.16.840.1.800750.10.20.22.4.2& quot; /> <id nullFlavor="NA" /> <code codeSystem="local" code="600.0850" displayName="PROTEIN ,URINE - DIPSTICK" /> <statusCode code="completed&quot ; /> <effectiveTime value="148813798206" /> < value unit="" xsi:type="PQ" value="NEGATIVE" /&gt ; <interpretationCode codeSystem="local" code="N&quot ; /> <referenceRange> <observationRange> <text>NEGATIVE</text> </observationRange&gt ; </referenceRange> </observation> </ component> <component> <observation moodCode="EVN& quot; classCode="OBS"> <templateId root=" 2..840.1.992919.10..22.4.2" /> <id nullFlavor="NA& quot; /> <code codeSystem="local" code="600.0900& quot; displayName="GLUCOSE, URINE - DIPSTICK" /> < statusCode code="completed" /> <effectiveTime value=& quot;079887836821" /> <value unit="" xsi:type=& quot;PQ" value="NEGATIVE" /> <interpretationCode codeSystem="local" code="N" /> < referenceRange> <observationRange> <text>NEGATIVE&lt ;/text> </observationRange> </referenceRange&gt ; </observation> </component> <component> <observation moodCode="EVN" classCode="OBS"> &lt ;templateId root="2.16.840.1.268628.10.20.22.4.2" /> < id nullFlavor="NA" /> <code codeSystem="local&quot ; code="600.0950" displayName="KETONES,URINE - DIPSTICK" /& gt; <statusCode code="completed" /> < effectiveTime value="919994744786" /> <value unit=&quot ;" xsi:type="PQ" value="NEGATIVE" /> < interpretationCode codeSystem="local" code="N" /> <referenceRange> <observationRange> < text>NEGATIVE</text> </observationRange> </ referenceRange> </observation> </component> < component> <observation moodCode="EVN" classCode="OBS "> <templateId root="2.16.840.1.078318.10.20.22.4.2& quot; /> <id nullFlavor="NA" /> <code codeSystem="local" code="600.1000" displayName=" UROBILINOGEN,URINE" /> <statusCode code="completed&quot ; /> <effectiveTime value="211277393197" /> <value unit="EU/DL" xsi:type="PQ" value="0.2&quot ; /> <interpretationCode codeSystem="local" code=" N" /> <referenceRange> <observationRange&gt ; <text>NORMAL</text> </observationRange> </referenceRange> </observation> </component> <component> <observation moodCode="EVN" classCode=& quot;OBS"> <templateId root=" [id number]" /> <id nullFlavor="NA& quot; /> <code codeSystem="local" code="600.1050& quot; displayName="BILIRUBIN,URINE - DIPSTICK" /> < statusCode code="completed" /> <effectiveTime value=& quot;[id number]" /> <value unit="" xsi:type=& quot;PQ" value="NEGATIVE" /> <interpretationCode codeSystem="local" code="N" /> < referenceRange> <observationRange> <text> NEGATIVE</text> </observationRange> </ referenceRange> </observation> </component> < component> <observation moodCode="EVN" classCode=" OBS"> <templateId root="2.16.840.1.398855.10.20.22.4.2& quot; /> <id nullFlavor="NA" /> <code codeSystem="local" code="600.1100" displayName="BLOOD, URINE" /> <statusCode code="completed" /> <effectiveTime value="431613772756" /> <value unit="" xsi:type="PQ" value="TRACE-INTACT" /> <interpretationCode codeSystem="local" code="Aa" /&gt ; <referenceRange> <observationRange> <text>NEGATIVE</text> </observationRange> & lt;/referenceRange> </observation> </component> & lt;/organizer> </entry> <entry> <organizer moodCode=&quot ;EVN" classCode="BATTERY"> <templateId root=" 2.16.840.1.415827.10.20.22.4.1" /> <id nullFlavor="NA&quot ; /> <code codeSystem="local" code="LUADMRC" displayName="L600.0175" /> <statusCode code="completed " /> <component> <observation moodCode="EVN& quot; classCode="OBS"> <templateId root=" 2.16.840.1.147282.10.20.22.4.2" /> <id nullFlavor="NA&quot ; /> <code codeSystem="local" code="600.0500&quot ; displayName="SPECIMEN TYPE, URINE" /> <statusCode code="completed" /> <effectiveTime value=" 886521014082" /> <value unit="" xsi:type="PQ& quot; value="CLEANCATCH-MIDSTREAM" /> <interpretationCode codeSystem="local" code="N" /> < referenceRange> <observationRange> <text /& gt; </observationRange> </referenceRange> </observation> </component> <component> &lt ;observation moodCode="EVN" classCode="OBS"> < templateId root="2.16.840.1.144764.10.20.22.4.2" /> < id nullFlavor="NA" /> <code codeSystem="local&quot ; code="600.0550" displayName="COLOR,URINE" /> & lt;statusCode code="completed" /> <effectiveTime value= "835100933727" /> <value unit="" xsi:type=& quot;PQ" value="YELLOW" /> <interpretationCode codeSystem="local" code="N" /> < referenceRange> <observationRange> <text> YELLOW</text> </observationRange> </ referenceRange> </observation> </component> < component> <observation moodCode="EVN" classCode=" OBS"> <templateId root="2.16.840.1.069022.10.20.22.4.2& quot; /> <id nullFlavor="NA" /> <code codeSystem="local" code="600.0600" displayName=" TURBIDITY, URINE" /> <statusCode code="completed" /> <effectiveTime value="455000131282" /> & lt;value unit="" xsi:type="PQ" value="CLEAR" /&gt ; <interpretationCode codeSystem="local" code="N&quot ; /> <referenceRange> <observationRange> <text>CLEAR</text> </observationRange> </referenceRange> </observation> </component& gt; <component> <observation moodCode="EVN" classCode="OBS"> <templateId root=" 2.16.840.1.892483.10..22.4.2" /> <id nullFlavor="NA& quot; /> <code codeSystem="local" code="600.0650& quot; displayName="SPECIFIC GRAVITY,URINE" /> < statusCode code="completed" /> <effectiveTime value=& quot;881075579020" /> <value unit="" xsi:type=& quot;PQ" value="1.025" /><interpretationCode codeSystem=& quot;local" code="N" /> <referenceRange> <observationRange> <text>1.015-1.025</text&gt ; </observationRange> </referenceRange> </ observation> </component> <component> < observation moodCode="EVN" classCode="OBS"> < templateId root="2.16.840.1.530778.10.20.22.4.2" /><id nullFlavor="NA" /> <code codeSystem="local" code="600.0700" displayName="PH, URINE - DIPSTICK" /> <statusCode code="completed" /> < effectiveTime value="941793764027" /> <valueunit=" " xsi:type="PQ" value="6.0" /> < interpretationCode codeSystem="local" code="N" /> <referenceRange> <observationRange> < text>5.0-8.0</text> </observationRange> </ referenceRange> </observation> </component> < component> <observation moodCode="EVN" classCode=" OBS"> <templateId root="2.16.840.1.860403.10.20.22.4.2& quot; /> <id nullFlavor="NA" /> <code codeSystem="local" code="600.0750" displayName=" LEUKOCYTE ESTERASE ,URINE" /> <statusCode code=" completed" /> <effectiveTime value="789686323857" /&gt ; <value unit="" xsi:type="PQ" value="1+& quot; /> <interpretationCode codeSystem="local" code=& quot;Aa" /> <referenceRange> < observationRange> <text>NEGATIVE</text> & lt;/observationRange> </referenceRange> </ observation> </component> <component> < observation moodCode="EVN" classCode="OBS"> < templateId root="2.16.840.1.525865.10.20.22.4.2" /> < id nullFlavor="NA" /> <code codeSystem="local" code=& quot;600.0800" displayName="NITRITE,URINE" /> < statusCode code="completed" /> <effectiveTime value=& quot;267950339166" /> <value unit="" xsi:type=& quot;PQ" value="NEGATIVE" /> <interpretationCode codeSystem="local" code="N" /> < referenceRange> <observationRange> <text> NEGATIVE</text> </observationRange> </ referenceRange> </observation> </component> < component> <observation moodCode="EVN" classCode=" OBS"> <templateId root="2.16.840.1.451938.10.20.22.4.2& quot; /> <id nullFlavor="NA" /> <code codeSystem="local" code="600.0850" displayName="PROTEIN ,URINE - DIPSTICK" /> <statusCode code="completed" /> <effectiveTime value="325964187123" /> < value unit="" xsi:type="PQ" value="NEGATIVE"/> <interpretationCode codeSystem="local" code="N&quot ; /><referenceRange> <observationRange> & lt;text>NEGATIVE</text> </observationRange> & lt;/referenceRange> </observation> </component> <component> <observation moodCode="EVN" classCode=& quot;OBS"> <templateId root=" 2.16.840.1.751367.10.20.22.4.2" /> <id nullFlavor="NA& quot; /> <code codeSystem="local" code="600.0900& quot; displayName="GLUCOSE, URINE - DIPSTICK" /> < statusCode code="completed" /> <effectiveTime value=& quot;715584959584" /> <value unit="" xsi:type=" PQ" value="NEGATIVE" /><interpretationCode codeSystem=&quot ;local" code="N" /> <referenceRange> <observationRange> <text>NEGATIVE</text> </ observationRange> </referenceRange> </observation&gt ; </component> <component> <observation moodCode ="EVN" classCode="OBS"> <templateId root=& quot;2.16.840.1.093671.10.20.22.4.2" /> <id nullFlavor=&quot ;NA" /> <code codeSystem="local" code=" 600.0950" displayName="KETONES,URINE - DIPSTICK" /> & lt;statusCode code="completed" /> <effectiveTime value= "928879133935" /> <value unit="" xsi:type=& quot;PQ" value="NEGATIVE" /> <interpretationCode codeSystem="local" code="N" /> < referenceRange> <observationRange> <text>NEGATIVE& lt;/text> </observationRange> </referenceRange& gt; </observation> </component><component> <observation moodCode="EVN" classCode="OBS"> < templateId root="2.16.840.1.353403.10.20.22.4.2" /> < id nullFlavor="NA" /> <code codeSystem="local&quot ; code="600.1000" displayName="UROBILINOGEN,URINE" /> <statusCode code="completed" /> <effectiveTime value="821679425147" /> <value unit="EU/DL" xsi:type="PQ" value="0.2" /> < interpretationCode codeSystem="local" code="N" /> <referenceRange> <observationRange> < text>NORMAL</text> </observationRange> </ referenceRange> </observation> </component> < component> <observation moodCode="EVN" classCode="OBS" > <templateId root="2.16.840.1.287365.10.20.22.4.2" /& gt; <id nullFlavor="NA" /> <code codeSystem=& quot;local" code="600.1050" displayName="BILIRUBIN,URINE - DIPSTICK" /> <statusCode code="completed" /> <effectiveTime value="364673158637" /> < value unit="" xsi:type="PQ" value="NEGATIVE" /&gt ; <interpretationCode codeSystem="local" code="N&quot ; /> <referenceRange> <observationRange> & lt;text>NEGATIVE</text> </observationRange> & lt;/referenceRange> </observation> </component> <component> <observation moodCode="EVN" classCode=& quot;OBS"> <templateId root=" 2.16.840.1.364187.10.20.22.4.2" /> <id nullFlavor="NA& quot; /> <codecodeSystem="local" code="600.1100& quot; displayName="BLOOD, URINE" /> <statusCode code=" completed" /> <effectiveTime value="768636606820" /> <value unit="" xsi:type="PQ" value=" TRACE-INTACT" /> <interpretationCode codeSystem="local& quot; code="Aa" /> <referenceRange> < observationRange> <text>NEGATIVE</text> & lt;/observationRange> </referenceRange> </ observation> </component> <component> < observation moodCode="EVN" classCode="OBS"> < templateId root="2.16.840.1.349424.10.20.22.4.2" /> < id nullFlavor="NA" /> <code codeSystem="local&quot ; code="600.1200" displayName="WBC,URINE" /> &lt ;statusCode code="completed" /> <effectiveTime value=& quot;982576542808" /><value unit="/HPF" xsi:type="PQ& quot; value="3-5" /> <interpretationCode codeSystem=& quot;local" code="N" /> <referenceRange> <observationRange> <text>0-5</text> </observationRange> </referenceRange> </ observation> </component> <component> < observation moodCode="EVN" classCode="OBS"> < templateId root="2.16.840.1.108775.10.20.22.4.2" /> < id nullFlavor="NA" /> <code codeSystem="local&quot ; code="600.1250" displayName="RBC,URINE" /> &lt ;statusCode code="completed" /><effectiveTime value=" 933932497433" /> <value unit="/HPF" xsi:type=&quot ;PQ" value="1-3" /> <interpretationCode codeSystem ="local" code="N" /> <referenceRange> <observationRange> <text>0-3</text> </observationRange> </referenceRange> </ observation> </component> <component> < observation moodCode="EVN" classCode="OBS"> < templateId root="2.16.840.1.965354.10.20.22.4.2" /> < id nullFlavor="NA" /> <code codeSystem="local&quot ; code="600.1300" displayName="SQUAMOUS EPITHELIAL CELL,UR" /> <statusCode code="completed" /> < effectiveTime value="292947003731" /> <value unit=&quot ;" xsi:type="PQ" value="5-10" /> < interpretationCode codeSystem="local" code="N" /> <referenceRange> <observationRange> < text /> </observationRange> </referenceRange&gt ; </observation> </component> <component> <observation moodCode="EVN" classCode="OBS"> <templateId root="2.16.840.1.707315.10.20.22.4.2" /> <id nullFlavor="NA" /> <code codeSystem=" local" code="600.1450" displayName="BACTERIA,URINE" /& gt; <statusCode code="completed" /> < effectiveTime value="412888269593" /> <value unit=&quot ;" xsi:type="PQ" value="TRACE" /> < interpretationCode codeSystem="local" code="Doran" /> <referenceRange> <observationRange> <text& gt;NEGATIVE</text> </observationRange> </ referenceRange> </observation> </component> < component> <observation moodCode="EVN" classCode=" OBS"> <templateId root="2.16.840.1.217263.10.20.22.4.2& quot; /> <id nullFlavor="NA" /> <code codeSystem="local" code="600.2400" displayName=" CULTURE SET UP,URINE" /> <statusCode code="completed& quot; /> <effectiveTime value="367940476872" /> <value unit="" xsi:type="PQ" value="CULT NOT INDICATED" /> <interpretationCodecodeSystem="local&quot ; code="N" /> <referenceRange> < observationRange> <text /> </ observationRange> </referenceRange> </observation&gt ; </component> </organizer> </entry> <entry> <organizer moodCode="EVN" classCode="BATTERY"> &lt ;templateId root="2.16.840.1.808010.10.20.22.4.1" /> <id nullFlavor="NA" /> <code codeSystem="local" code= "MCUURINE" displayName="M153.0000" /> < statusCode code="completed" /> <component> < observation moodCode="EVN" classCode="OBS"> < templateId root="2.16.840.1.221735.10.20.22.4.2" /> < id nullFlavor="NA" /> <code codeSystem="local" code="307.0000" displayName="URINE CULTURE." /> <statusCode code="completed" /> <effectiveTime value ="323644413881" /> <value unit="CFU/ml" xsi: type="PQ" value=" " /> <referenceRange> <observationRange> <text /> </ observationRange> </referenceRange> </observation&gt ; </component> </organizer> </entry> <entry> <organizer moodCode="EVN" classCode="BATTERY"> <templateId root="2.16.840.1.017255.10.20.22.4.1" /> < id nullFlavor="NA" /> <code codeSystem="local" code="[facility]AD[facility]C" displayName="L600.0175" /><statusCode code="completed" /> <component> <observation moodCode="EVN" classCode="OBS"> <templateId root="2.16.840.1.735177.10.20.22.4.2" /> <id nullFlavor ="NA" /> <code codeSystem="local" code=" 600.0500" displayName="SPECIMEN TYPE, URINE" /> < statusCode code="completed" /> <effectiveTime value=& quot;055135905260" /> <value unit="" xsi:type=& quot;PQ" value="VOIDED-NOT CC-MIDSTR" /> < interpretationCode codeSystem="local" code="N" /> <referenceRange> <observationRange> < text /> </observationRange> </referenceRange> </observation> </component> <component> & lt;observation moodCode="EVN" classCode="OBS"> & lt;templateId root="2.16.840.1.016162.10.20.22.4.2" /> < id nullFlavor="NA" /> <code codeSystem="local&quot ; code="600.0550" displayName="COLOR,URINE" /> & lt;statusCode code="completed" /> <effectiveTime value= "476243855423" /> <value unit="" xsi:type=& quot;PQ" value="YELLOW" /> <interpretationCode codeSystem="local" code="N" /> < referenceRange> <observationRange> <text> YELLOW</text> </observationRange> </ referenceRange> </observation> </component> < component> <observation moodCode="EVN" classCode=" OBS"> <templateId root="2.16.840.1.918304.10.20.22.4.2& quot; /> <id nullFlavor="NA" /> <code codeSystem="local" code="600.0600" displayName=" TURBIDITY, URINE" /> <statusCode code="completed" /> <effectiveTime value="227530937768" /> & lt;value unit="" xsi:type="PQ" value="SL CLOUDY" / > <interpretationCode codeSystem="local" code="N& quot; /> <referenceRange> <observationRange> <text>CLEAR</text> </observationRange> </referenceRange> </observation> </component > <component> <observation moodCode="EVN" classCode="OBS"> <templateId root=" 2.16.840.1.898703.10.20.22.4.2" /> <id nullFlavor="NA& quot; /> <code codeSystem="local" code="600.0650& quot; displayName="SPECIFIC GRAVITY,URINE" /> < statusCode code="completed" /> <effectiveTime value=& quot;067058313794" /> <value unit="" xsi:type=& quot;PQ" value="1.015" /> <interpretationCode codeSystem="local" code="N" /> < referenceRange> <observationRange> <text> 1.015-1.025</text> </observationRange> </ referenceRange></observation> </component> < component> <observation moodCode="EVN" classCode=" OBS"> <templateId root="2.16.840.1.020077.10.20.22.4.2& quot; /> <id nullFlavor="NA" /> <code codeSystem="local" code="600.0700" displayName="PH, URINE - DIPSTICK" /> <statusCode code="completed" /> <effectiveTime value="485432950633" /> < value unit="" xsi:type="PQ" value="6.0" /> <interpretationCode codeSystem="local" code="N" /&gt ; <referenceRange> <observationRange> <text>5.0-8.0</text> </observationRange> </referenceRange> </observation></component> < component> <observation moodCode="EVN" classCode=" OBS"> <templateId root="2.16.840.1.684371.10.20.22.4.2& quot; /> <id nullFlavor="NA" /> <code codeSystem="local" code="600.0750" displayName=" LEUKOCYTE ESTERASE ,URINE" /> <statusCode code=" completed" /> <effectiveTime value="643439634674" /><value unit="" xsi:type="PQ" value="2+" /& gt; <interpretationCode codeSystem="local" code="Aa& quot; /> <referenceRange> <observationRange> <text>NEGATIVE</text> </observationRange> </referenceRange> </observation> </ component> <component> <observation moodCode="EVN& quot; classCode="OBS"> <templateId root=" 2.16.840.1.699028.10.20.22.4.2" /> <id nullFlavor="NA& quot; /> <code codeSystem="local" code="600.0800& quot; displayName="NITRITE,URINE" /> <statusCode code=& quot;completed" /> <effectiveTime value="378214876155" /> <value unit="" xsi:type="PQ" value=" POSITIVE" /> <interpretationCode codeSystem="local&quot ; code="Aa" /> <referenceRange> < observationRange> <text>NEGATIVE</text> & lt;/observationRange> </referenceRange> </ observation> </component> <component> < observation moodCode="EVN" classCode="OBS"> < templateId root="2.16.840.1.165861.10.20.22.4.2" /> < id nullFlavor="NA" /> <code codeSystem="local" code="600.0850" displayName="PROTEIN,URINE - DIPSTICK" /&gt ; <statusCode code="completed" /> < effectiveTime value="870421802943" /> <value unit=&quot ;" xsi:type="PQ" value="NEGATIVE" /> < interpretationCode codeSystem="local" code="N" /> <referenceRange> <observationRange> <text> NEGATIVE</text> </observationRange> </ referenceRange> </observation> </component> < component> <observation moodCode="EVN" classCode=" OBS"> <templateId root="2.16.840.1.160620.10.20.22.4.2& quot; /> <id nullFlavor="NA" /> < codecodeSystem="local" code="600.0900" displayName=" GLUCOSE, URINE - DIPSTICK" /> <statusCode code=" completed" /> <effectiveTime value="304084288500" /> <value unit="" xsi:type="PQ" value=" NEGATIVE" /> <interpretationCode codeSystem="local&quot ; code="N" /> <referenceRange> < observationRange> <text>NEGATIVE</text> & lt;/observationRange> </referenceRange> </ observation> </component> <component> < observation moodCode="EVN" classCode="OBS"> < templateId root="2.16.840.1.546511.10.20.22.4.2" /> < id nullFlavor="NA" /> <code codeSystem="local&quot ; code="600.0950" displayName="KETONES,URINE - DIPSTICK" /& gt; <statusCode code="completed" /> < effectiveTime value="570226456953" /> <value unit=&quot ;" xsi:type="PQ" value="NEGATIVE" /> < interpretationCode codeSystem="local" code="N" /> < referenceRange> <observationRange> <text> NEGATIVE</text> </observationRange> </ referenceRange> </observation> </component> < component> <observation moodCode="EVN" classCode=" OBS"> <templateId root="2.16.840.1.188746.10.20.22.4.2& quot; /> <id nullFlavor="NA" /> <code codeSystem="local" code="600.1000" displayName=" UROBILINOGEN,URINE" /> <statusCode code="completed&quot ; /> <effectiveTime value="574456532071" /> < value unit="EU/DL" xsi:type="PQ" value="0.2" /&gt ; <interpretationCode codeSystem="local" code="N&quot ; /> <referenceRange> <observationRange> <text>NORMAL</text> </observationRange> </referenceRange> </observation> </component > <component> <observation moodCode="EVN" classCode="OBS"> <templateId root=" 2.16.840.1.876670.10.20.22.4.2" /> <id nullFlavor="NA& quot; /> <code codeSystem="local" code="600.1050& quot;displayName="BILIRUBIN,URINE - DIPSTICK" /> < statusCode code="completed" /> <effectiveTime value=& quot;556264034246" /> <value unit="" xsi:type=& quot;PQ" value="NEGATIVE" /> <interpretationCode codeSystem="local" code="N" /> < referenceRange> <observationRange> <text> NEGATIVE</text> </observationRange> </ referenceRange> </observation> </component> < component> <observation moodCode="EVN" classCode=" OBS"> <templateId root="2.16.840.1.054403.10.20.22.4.2& quot; /> <id nullFlavor="NA" /> <code codeSystem="local" code="600.1100" displayName="BLOOD, URINE" /> <statusCode code="completed" /> <effectiveTime value="715466144391" /> <value unit="" xsi:type="PQ" value="3+" /> & lt;interpretationCode codeSystem="local" code="Aa" /> <referenceRange> <observationRange> <text> NEGATIVE</text> </observationRange> </ referenceRange> </observation> </component> </ organizer> </entry> <entry> <organizer moodCode="EVN " classCode="BATTERY"> <templateId root=" 2.16.840.1.580463.10.20.22.4.1" /> <id nullFlavor="NA&quot ; /> <code codeSystem="local" code="LUADMRC" displayName="L600.0175" /> <statusCode code="completed " /> <component> <observation moodCode="EVN& quot; classCode="OBS"> <templateId root=" 2.16.840.1.578924.10.20.22.4.2" /> <id nullFlavor="NA& quot; /> <code codeSystem="local" code="600.0500& quot; displayName="SPECIMEN TYPE, URINE" /> < statusCode code="completed" /> <effectiveTime value=& quot;191625369530" /> <value unit="" xsi:type=& quot;PQ" value="VOIDED-NOT CC-MIDSTR" /> < interpretationCode codeSystem="local" code="N" /> <referenceRange> <observationRange> < text /> </observationRange> </referenceRange&gt ; </observation> </component> <component> <observation moodCode="EVN" classCode="OBS"> <templateId root="2.16.840.1.413021.10.20.22.4.2" /> <id nullFlavor="NA" /> <code codeSystem=" local" code="600.0550" displayName="COLOR,URINE" /> <statusCode code="completed" /> < effectiveTime value="986171766228" /> <value unit="" xsi:type="PQ" value="YELLOW" /> < interpretationCode codeSystem="local" code="N" /> <referenceRange> <observationRange> < text>YELLOW</text> </observationRange> </ referenceRange> </observation> </component> < component> <observation moodCode="EVN" classCode=" OBS"> <templateId root="2.16.840.1.406369.10.20.22.4.2& quot; /> <id nullFlavor="NA" /> <code codeSystem="local" code="600.0600" displayName=" TURBIDITY, URINE" /> <statusCode code="completed" /> <effectiveTime value="773280182661" /> & lt;value unit="" xsi:type="PQ" value="SL CLOUDY" / > <interpretationCode codeSystem="local" code="N& quot; /> <referenceRange> <observationRange> <text>CLEAR</text> </observationRange&gt ;</referenceRange> </observation> </component> <component> <observation moodCode="EVN" classCode=& quot;OBS"> <templateId root=" 2.16.840.1.264887.10.20.22.4.2" /> <id nullFlavor="NA& quot; /> <code codeSystem="local" code="600.0650& quot; displayName="SPECIFIC GRAVITY,URINE" /> < statusCode code="completed" /> <effectiveTime value=& quot;546848572752" /> <value unit="" xsi:type=& quot;PQ" value="1.015" /> <interpretationCode codeSystem="local" code="N" /> < referenceRange> <observationRange><text>1.015-1.025&lt ;/text> </observationRange> </referenceRange&gt ; </observation> </component> <component> <observation moodCode="EVN" classCode="OBS"> <templateId root="2.16.840.1.533756.10.20.22.4.2" /> <id nullFlavor="NA" /> <codecodeSystem=" local" code="600.0700" displayName="PH, URINE - DIPSTICK& quot; /> <statusCode code="completed" /> & lt;effectiveTime value="430641387279" /> <value unit=& quot;" xsi:type="PQ" value="6.0" /> < interpretationCode codeSystem="local" code="N" /> & lt;referenceRange> <observationRange> <text& gt;5.0-8.0</text> </observationRange> </ referenceRange> </observation> </component> < component> <observation moodCode="EVN" classCode=" OBS"> <templateId root="2.16.840.1.960284.10.20.22.4.2& quot; /> <id nullFlavor="NA" /> <code codeSystem="local" code="600.0750" displayName=" LEUKOCYTE ESTERASE ,URINE" /> <statusCode code=" completed" /> <effectiveTime value="581507170623" /> <value unit="" xsi:type="PQ" value="2 +" /><interpretationCode codeSystem="local" code="Aa& quot; /> <referenceRange> <observationRange> <text>NEGATIVE</text> </observationRange> </referenceRange> </observation> </component&gt ; <component> <observation moodCode="EVN" classCode="OBS"> <templateId root=" 2.16.840.1.702294.10.20.22.4.2" /> <id nullFlavor="NA& quot; /> <code codeSystem="local" code="600.0800& quot; displayName="NITRITE,URINE" /> <statusCode code=& quot;completed" /> <effectiveTime value="598453680134& quot; /> <value unit="" xsi:type="PQ" value=& quot;POSITIVE" /> <interpretationCode codeSystem="local " code="Aa" /> <referenceRange> < observationRange> <text>NEGATIVE</text> & lt;/observationRange> </referenceRange> </ observation> </component> <component> < observation moodCode="EVN" classCode="OBS"> < templateId root="2.16.840.1.231299.10.20.22.4.2" /> < id nullFlavor="NA" /> <code codeSystem="local&quot ; code="600.0850" displayName="PROTEIN,URINE - DIPSTICK" /& gt; <statusCode code="completed" /> < effectiveTime value="172575195505" /> <value unit=&quot ;" xsi:type="PQ" value="NEGATIVE" /> < interpretationCode codeSystem="local" code="N" /> <referenceRange> <observationRange> < text>NEGATIVE</text> </observationRange> < /referenceRange> </observation> </component> &lt ;component><observation moodCode="EVN" classCode="OBS" > <templateId root="2.16.840.1.776355.10.20.22.4.2" /& gt; <id nullFlavor="NA" /> <code codeSystem=&quot ;local" code="600.0900" displayName="GLUCOSE, URINE- DIPSTICK" /> <statusCode code="completed" /> <effectiveTime value="018916324382" /> < value unit="" xsi:type="PQ" value="NEGATIVE" /&gt ; <interpretationCode codeSystem="local" code="N&quot ; /> <referenceRange> <observationRange> < text>NEGATIVE</text> </observationRange> < /referenceRange> </observation> </component> &lt ;component> <observation moodCode="EVN" classCode=" OBS"> <templateId root="2.16.840.1.329022.10.20.22.4.2& quot; /> <id nullFlavor="NA" /> <code codeSystem="local" code="600.0950" displayName="KETONES ,URINE - DIPSTICK" /> <statusCode code="completed&quot ; /> <effectiveTime value="246966451215" /> <value unit="" xsi:type="PQ" value="NEGATIVE&quot ; /> <interpretationCode codeSystem="local" code=" N" /> <referenceRange> <observationRange&gt ; <text>NEGATIVE</text> </ observationRange> </referenceRange> </observation&gt ; </component> <component> <observation moodCode ="EVN" classCode="OBS"> <templateId root=& quot;2.16.840.1.597612.10.20.22.4.2" /> <id nullFlavor=&quot ;NA" /> <code codeSystem="local" code=" 600.1000" displayName="UROBILINOGEN,URINE" /> < statusCode code="completed" /> <effectiveTime value=& quot;854004155197" /> <value unit="EU/DL" xsi:type ="PQ" value="0.2" /> <interpretationCode codeSystem="local" code="N" /> < referenceRange> <observationRange> <text> NORMAL</text> </observationRange> </referenceRange& gt; </observation> </component> <component> <observation moodCode="EVN" classCode="OBS"> <templateId root="2.16.840.1.150555.10.20.22.4.2" /> & lt;id nullFlavor="NA" /> <code codeSystem="local& quot; code="600.1050" displayName="BILIRUBIN,URINE - DIPSTICK& quot; /> <statusCode code="completed" /> & lt;effectiveTime value="910767373258" /> <value unit=& quot;" xsi:type="PQ" value="NEGATIVE" /> & lt;interpretationCode codeSystem="local" code="N" /> <referenceRange> <observationRange> < text>NEGATIVE</text> </observationRange> < /referenceRange> </observation> </component> &lt ;component> <observation moodCode="EVN" classCode=" OBS"> <templateId root="2.16.840.1.915994.10.20.22.4.2& quot; /> <id nullFlavor="NA" /> <code codeSystem="local" code="600.1100" displayName="BLOOD, URINE" /> <statusCode code="completed" /> <effectiveTime value="786185738335" /> <value unit ="" xsi:type="PQ" value="3+" /> < interpretationCode codeSystem="local" code="Aa" /> <referenceRange> <observationRange> < text>NEGATIVE</text> </observationRange> < /referenceRange> </observation> </component> &lt ;component> <observation moodCode="EVN" classCode=" OBS"> <templateId root="2.16.840.1.008042.10.20.22.4.2& quot; /> <id nullFlavor="NA" /> <code codeSystem="local" code="600.1200" displayName="WBC, URINE"/> <statusCode code="completed" /> <effectiveTime value="642571125205" /> <value unit="/HPF" xsi:type="PQ" value="TNTC" /> <interpretationCode codeSystem="local" code="Doran" /& gt; <referenceRange> <observationRange> <text>0-5</text> </observationRange> </referenceRange> </observation> </component> <component> <observation moodCode="EVN" classCode= "OBS"> <templateId root=" 2.16.840.1.038950.10.20.22.4.2" /> <id nullFlavor="NA& quot; /> <code codeSystem="local" code="600.1250& quot; displayName="RBC,URINE" /> <statusCode code=&quot ;completed" /> <effectiveTime value="983974137405&quot ; /><value unit="/HPF" xsi:type="PQ" value="10-20 " /> <interpretationCode codeSystem="local" code=& quot;Doran" /> <referenceRange> < observationRange> <text>0-3</text> </ observationRange> </referenceRange> </observation&gt ; </component> <component> <observation moodCode ="EVN" classCode="OBS"> <templateId root=& quot;2.16.840.1.996123.10.20.22.4.2" /> <id nullFlavor=&quot ;NA" /> <code codeSystem="local" code=" 600.1450" displayName="BACTERIA,URINE" /> < statusCode code="completed" /> <effectiveTime value=&quot ;544232755343" /> <value unit="" xsi:type="PQ " value="2+" /> <interpretationCode codeSystem=& quot;local" code="Doran" /> <referenceRange> <observationRange> <text>NEGATIVE</text> </observationRange> </referenceRange> &lt ;/observation> </component> <component><observation moodCode="EVN" classCode="OBS"> <templateId root="2.16.840.1.338232.10.20.22.4.2" /> <id nullFlavor ="NA" /> <code codeSystem="local" code=" 600.2400" displayName="CULTURE SET UP,URINE" /> < statusCode code="completed" /> <effectiveTime value=& quot;089113329312" /> <value unit="" xsi:type=& quot;PQ" value="CULT REFLEXED &SETUP" /> < interpretationCode codeSystem="local" code="N" /> <referenceRange> <observationRange> < text /> </observationRange> </referenceRange&gt ; </observation> </component> </organizer> < /entry> <entry> <organizer moodCode="EVN" classCode=& quot;BATTERY"> <templateId root=" 2.16.840.1.512530.10.20.22.4.1" /> <id nullFlavor="NA&quot ; /> <code codeSystem="local" code="MCUURINE" displayName="M153.0000" /> <statusCode code="completed " /> <component> <observation moodCode="EVN& quot; classCode="OBS"> <templateId root=" 2.16.840.1.295273.10.20.22.4.2" /> <id nullFlavor="NA& quot; /> <code codeSystem="local" code="307.0000& quot; displayName="URINE CULTURE." /> <statusCode code=& quot;completed" /> <effectiveTime value="197459768002& quot; /> <value unit="CFU/ml" xsi:type="PQ" value=" " /> <interpretationCode codeSystem="local " code="S" /> <referenceRange> < observationRange> <text /> </observationRange> </referenceRange> </observation> </component&gt ; </organizer> </entry> <entry> <organizer moodCode ="EVN" classCode="BATTERY"> <templateId root=& quot;2.16.840.1.732116.10.20.22.4.1" /> <id nullFlavor="NA& quot; /> <code codeSystem="local" code="LCBC" displayName="L100.0050" /> <statusCode code="completed " /> <component> <observation moodCode="EVN& quot; classCode="OBS"> <templateId root=" 2.16.840.1.406736.10.20.22.4.2" /> <id nullFlavor="NA& quot; /> <code codeSystem="local" code="100.0150& quot; displayName="WBC - WHITE BLOOD COUNT" /> < statusCode code="completed" /> <effectiveTime value=& quot;076778679841" /> <value unit="T/MM3" xsi:type ="PQ" value="5.0" /> <interpretationCode codeSystem="local" code="N" /> < referenceRange> <observationRange> <text>4.5-11.0& lt;/text> </observationRange> </referenceRange& gt; </observation> </component><component> <observation moodCode="EVN" classCode="OBS"> < templateId root="2.16.840.1.150490.10.20.22.4.2" /> < id nullFlavor="NA" /> <code codeSystem="local&quot ; code="100.0250" displayName="RED BLOOD COUNT" /> <statusCode code="completed" /> <effectiveTime value=& quot;770604477702" /> <value unit="M/MM3" xsi:type ="PQ" value="5.36" /> <interpretationCode codeSystem="local" code="H" /> < referenceRange> <observationRange> <text> 4.00-5.20</text> </observationRange> </ referenceRange> </observation> </component> < component> <observation moodCode="EVN" classCode="OBS&quot ;> <templateId root="2.16.840.1.990525.10.20.22.4.2" /& gt; <id nullFlavor="NA" /> <code codeSystem=& quot;local" code="100.0300" displayName="HGB - HEMOGLOBIN& quot; /> <statusCode code="completed" /> & lt;effectiveTime value="666866704436" /> <value unit=& quot;GM/DL" xsi:type="PQ" value="14.8" /> & lt;interpretationCode codeSystem="local" code="N" /> <referenceRange> <observationRange> & lt;text>12-16</text> </observationRange> < /referenceRange> </observation> </component> < component> <observation moodCode="EVN" classCode=" OBS"> <templateId root="2.16.840.1.104749.10.20.22.4.2& quot; /> <id nullFlavor="NA" /> <code codeSystem="local" code="100.0400" displayName="HCT - HEMATOCRIT" /> <statusCode code="completed" /> <effectiveTime value="534111263749" /> < value unit="%" xsi:type="PQ" value="46.4" /> <interpretationCode codeSystem="local" code="H& quot; /> <referenceRange> <observationRange> <text>36-46</text> </observationRange> </referenceRange> </observation> </component> <component> <observation moodCode="EVN" classCode="OBS"> <templateId root=" 2.16.840.1.167338.10.20.22.4.2" /> <id nullFlavor="NA& quot; /> <code codeSystem="local" code="100.0550& quot; displayName="MEAN CORPUSCULAR VOLUME" /> < statusCode code="completed" /> <effectiveTime value=& quot;783654270740" /> <value unit="UM3" xsi:type=" PQ" value="86.6" /> <interpretationCode codeSystem ="local" code="N" /> <referenceRange> <observationRange> <text>80-100</text> </observationRange> </referenceRange> < /observation> </component> <component> < observation moodCode="EVN" classCode="OBS"> < templateId root="2.16.840.1.205840.10.20.22.4.2" /> < id nullFlavor="NA" /> <code codeSystem="local&quot ; code="100.0600" displayName="MEAN CORPUSCULAR HGB" /> <statusCode code="completed" /> < effectiveTime value="737093592814" /> <value unit=&quot ;UUG" xsi:type="PQ" value="27.6" /> < interpretationCode codeSystem="local" code="N" /> <referenceRange> <observationRange> < text>26-34</text> </observationRange> </ referenceRange> </observation> </component> < component> <observation moodCode="EVN" classCode=" OBS"> <templateId root="2.16.840.1.822393.10.20.22.4.2& quot; /> <id nullFlavor="NA"/> <code codeSystem="local" code="100.0650" displayName="MEAN CORPUSCULAR HGB CONC([facility]" /> <statusCode code=" completed" /> <effectiveTime value="997217060204" /> <value unit="GM/DL"xsi:type="PQ" value=" 31.9" /> <interpretationCode codeSystem="local" code="N" /> <referenceRange> < observationRange> <text>31-37</text> < /observationRange> </referenceRange> </observation& gt; </component> <component> <observation moodCode="EVN" classCode="OBS"> <templateId root="2.16.840.1.678794.10.20.22.4.2" /> <id nullFlavor ="NA" /> <code codeSystem="local" code=" 100.0750" displayName="RDW STANDARD DEVIATION" /> &lt ;statusCode code="completed" /> <effectiveTime value=& quot;196602429298" /> <value unit="FL" xsi:type=& quot;PQ" value="50.3" /> <interpretationCode codeSystem="local" code="H" /> < referenceRange> <observationRange> <text> 36.9-50.2</text> </observationRange> </ referenceRange> </observation> </component> < component> <observation moodCode="EVN" classCode=" OBS"> <templateId root="2.16.840.1.652179.10.20.22.4.2& quot; /> <id nullFlavor="NA" /> <code codeSystem="local" code="100.0850" displayName="PLT - PLATELET COUNT" /> <statusCode code="completed" /&gt ; <effectiveTime value="990624860727" /> < value unit="T/MM3" xsi:type="PQ" value="217" /&gt ; <interpretationCode codeSystem="local" code="N&quot ; /> <referenceRange> <observationRange> <text>130-400</text> </observationRange> </referenceRange> </observation> </component&gt ; <component> <observation moodCode="EVN" classCode="OBS"> <templateId root=" 2.16.840.1.526509.10.20.22.4.2" /> <id nullFlavor="NA& quot; /> <code codeSystem="local" code="100.0950& quot; displayName="MEAN PLATELET VOLUME" /> < statusCode code="completed" /> <effectiveTime value=& quot;066643395134" /> <value unit="UM3" xsi:type=&quot ;PQ" value="10.2" /> <interpretationCode codeSystem="local" code="N" /> < referenceRange> <observationRange> <text> 9.4-12.4</text> </observationRange> </ referenceRange> </observation> </component> < component> <observation moodCode="EVN" classCode=" OBS"> <templateId root="2.16.840.1.235337.10.20.22.4.2& quot; /> <id nullFlavor="NA" /> <code codeSystem="local" code="100.1050" displayName=" NEUTROPHILS % (AUTO)" /> <statusCode code=" completed" /> <effectiveTime value="546793075207" /> <value unit="%" xsi:type="PQ" value="75.2" /> <interpretationCode codeSystem=" local" code="H" /> <referenceRange> & lt;observationRange> <text>33-66</text> & lt;/observationRange> </referenceRange> </ observation> </component> <component> < observation moodCode="EVN" classCode="OBS"> < templateId root="2.16.840.1.468238.10..22.4.2" /> < id nullFlavor="NA" /> <code codeSystem="local&quot ; code="100.1100" displayName="LYMPHOCYTES % (AUTO)&quot ; /> <statusCode code="completed" /> < effectiveTime value="663499369225" /> <value unit=&quot ;%" xsi:type="PQ" value="15.6" /> & lt;interpretationCode codeSystem="local" code="L" /> <referenceRange><observationRange> <text>23 -45</text> </observationRange> </ referenceRange> </observation> </component> < component> <observation moodCode="EVN" classCode=" OBS"> <templateId root="2.16.840.1.985840.10.20.22.4.2& quot; /> <id nullFlavor="NA" /> <code codeSystem="local" code="100.1150" displayName=" MONOCYTES % (AUTO)" /> <statusCode code=" completed" /> <effectiveTime value="140473263690" /& gt; <value unit="%" xsi:type="PQ" value= "6.6" /> <interpretationCode codeSystem="local& quot; code="N" /> <referenceRange> < observationRange> <text>0-9.0</text> < /observationRange> </referenceRange> </observation> & lt;/component> <component> <observation moodCode="EVN " classCode="OBS"> <templateIdroot=" 2.16.840.1.179090.10.20.22.4.2" /> <id nullFlavor="NA& quot; /> <code codeSystem="local" code="100.1200& quot; displayName="EOSINOPHILS % (AUTO)" /> < statusCode code="completed" /> <effectiveTime value=& quot;008579945413" /> <value unit="%" xsi: type="PQ" value="2.0" /> <interpretationCode codeSystem="local" code="N" /> < referenceRange> <observationRange> <text> 0-4</text> </observationRange> </ referenceRange> </observation> </component> < component> <observation moodCode="EVN" classCode=" OBS"> <templateId root="2.16.840.1.706249.10.20.22.4.2& quot; /> <id nullFlavor="NA" /> <code codeSystem="local" code="100.1250" displayName=" BASOPHILS % (AUTO)" /> <statusCode code=" completed" /> <effectiveTimevalue="821133593181" / > <value unit="%" xsi:type="PQ" value ="0.4" /> <interpretationCode codeSystem="local& quot; code="N" /> <referenceRange> < observationRange> <text>0-2</text> </ observationRange> </referenceRange> </observation> </component> <component> <observation moodCode=& quot;EVN" classCode="OBS"> <templateId root=" 2.16.840.1.571730.10.20.22.4.2" /> <id nullFlavor="NA& quot; /> <code codeSystem="local" code="100.1275& quot; displayName="IMMATURE GRANULOCYTE % (AUTO)" /> <statusCode code="completed" /> <effectiveTime value="205949228647" /> <value unit="%& quot; xsi:type="PQ" value="0.2" /> < interpretationCode codeSystem="local" code="N" /> <referenceRange> <observationRange> < text>0.0-0.5</text> </observationRange> </ referenceRange> </observation> </component> < component> <observation moodCode="EVN" classCode=" OBS"> <templateId root="2.16.840.1.195659.10.20.22.4.2& quot; /> <id nullFlavor="NA" /> <code codeSystem="local" code="100.1300" displayName=" NEUTROPHILS # (AUTO)" /> <statusCode code="completed" / > <effectiveTime value="165635592251" /> & lt;value unit="T/MM3" xsi:type="PQ" value="3.8" /& gt; <interpretationCode codeSystem="local" code="N& quot; /> <referenceRange> <observationRange> <text>1.8-7.7</text> </observationRange> </referenceRange> </observation> </component& gt; <component> <observation moodCode="EVN" classCode="OBS"> <templateId root=" 2.16.840.1.673655.10.20.22.4.2" /> <id nullFlavor="NA& quot; /> <code codeSystem="local" code="100.1350& quot; displayName="LYMPHOCYTES # (AUTO)" /> < statusCode code="completed" /> <effectiveTime value=& quot;482027896077" /> <value unit="T/MM3" xsi:type=&quot ;PQ" value="0.8" /> <interpretationCode codeSystem ="local" code="L" /> <referenceRange> <observationRange> <text>1-4.8</text> </observationRange> </referenceRange> </ observation> </component> <component> < observation moodCode="EVN" classCode="OBS"> < templateId root="2.16.840.1.051055.10.20.22.4.2" /> < id nullFlavor="NA" /> <code codeSystem="local&quot ; code="100.1400" displayName="MONOCYTES # (AUTO)" /> <statusCode code="completed" /> < effectiveTime value="088604124232" /> <value unit=&quot ;T/MM3" xsi:type="PQ" value="0.3" /> < interpretationCode codeSystem="local" code="N" /> <referenceRange> <observationRange> < text>0-0.8</text> </observationRange> </ referenceRange> </observation> </component> < component> <observation moodCode="EVN" classCode=" OBS"> <templateId root="2.16.840.1.816108.10.20.22.4.2& quot; /> <id nullFlavor="NA" /> <code codeSystem="local" code="100.1450" displayName=" EOSINOPHILS # (AUTO)" /> <statusCode code="completed& quot; /> <effectiveTime value="783294961082" /> <value unit="T/MM3" xsi:type="PQ" value="0.1& quot; /> <interpretationCode codeSystem="local" code=& quot;N" /> <referenceRange> < observationRange> <text>0-0.5</text> </ observationRange> </referenceRange> </observation&gt ; </component> <component> <observation moodCode ="EVN" classCode="OBS"> <templateId root=& quot;2.16.840.1.862203.10.20.22.4.2" /> <id nullFlavor=&quot ;NA" /> <codecodeSystem="local" code=" 100.1500" displayName="BASOPHILS # (AUTO)" /> < statusCode code="completed" /> <effectiveTime value=& quot;052039804822" /> <value unit="T/MM3" xsi:type ="PQ" value="0.0" /> <interpretationCode codeSystem="local" code="N" /> < referenceRange> <observationRange> <text> 0-0.2</text> </observationRange> </ referenceRange> </observation> </component> < component> <observation moodCode="EVN" classCode=" OBS"> <templateId root="2.16.840.1.706314.10.20.22.4.2& quot; /> <id nullFlavor="NA" /> <code codeSystem="local" code="100.1525" displayName=" IMMATURE GRANULOCYTE # (AUTO)" /> <statusCode code=" completed" /> <effectiveTime value="577491501357" /> <value unit="T/MM3" xsi:type="PQ" value=& quot;0.01" /> <interpretationCode codeSystem="local& quot; code="N" /> <referenceRange> < observationRange> <text>0.00-0.03</text> </observationRange> </referenceRange> </ observation> </component> </organizer> </entry> & lt;entry> <organizer moodCode="EVN" classCode="BATTERY& quot;> <templateId root="2.16.840.1.000811.10.20.22.4.1" /& gt; <id nullFlavor="NA" /> <code codeSystem=" local" code="LBMP" displayName="L200.0050" /> & lt;statusCode code="completed" /> <component> &lt ;observation moodCode="EVN" classCode="OBS"> &lt ;templateId root="2.16.840.1.374619.10.20.22.4.2" /> < id nullFlavor="NA" /> <code codeSystem="local&quot ; code="200.0097" displayName="ICTERUS" /> < statusCode code="completed" /> <effectiveTime value=& quot;102983403437" /> <value unit="" xsi:type=& quot;PQ" value="< 2" /> < interpretationCode codeSystem="local" code="N" /> <referenceRange> <observationRange> <text>0-7 </text> </observationRange> </referenceRange& gt; </observation> </component> <component> <observation moodCode="EVN" classCode="OBS"> <templateId root="2.16.840.1.241774.10.20.22.4.2" /> <id nullFlavor="NA" /> <code codeSystem=&quot ;local" code="200.0098" displayName="HEMOLYSIS" /> <statusCode code="completed" /> < effectiveTime value="583208242632" /> <value unit=&quot ;" xsi:type="PQ" value="< 15" /> &lt ;interpretationCode codeSystem="local" code="N" /> <referenceRange> <observationRange> <text&gt ;0-25</text> </observationRange> </ referenceRange> </observation> </component> </ organizer> </entry> <entry> <organizer moodCode="EVN " classCode="BATTERY"> <templateId root=" 2.16.840.1.269128.10.20.22.4.1" /> <id nullFlavor="NA&quot ; /> <code codeSystem="local" code="LTROPIH" displayName="L200.1848" /> <statusCode code="completed " /> <component> <observation moodCode="EVN& quot; classCode="OBS"> <templateId root=" 2.16.840.1.526800.10.20.22.4.2" /> <id nullFlavor="NA& quot; /> <code codeSystem="local" code="200.1850& quot; displayName="TROPONIN I" /> <statusCode code=" completed" /> <effectiveTime value="232438162061" /> <value unit="ng/ml" xsi:type="PQ" value=& quot;< 0.012" /> <interpretationCode codeSystem=&quot ;local" code="N" /> <referenceRange> <observationRange> <text>0-0.12</text> </observationRange> </referenceRange> </ observation> </component> </organizer> </entry> & lt;entry> <organizer moodCode="EVN" classCode="BATTERY& quot;> <templateId root="2.16.840.1.053714.10.20.22.4.1" /& gt; <id nullFlavor="NA" /> <code codeSystem=" local" code="LLIP" displayName="L200.1950" /> & lt;statusCode code="completed" /> <component> &lt ;observation moodCode="EVN" classCode="OBS"> &lt ;templateId root="2.16.840.1.357314.10.20.22.4.2" /> < id nullFlavor="NA" /> <code codeSystem="local&quot ; code="200.1950" displayName="LIPASE" /> < statusCode code="completed" /> <effectiveTime value=& quot;196445463963" /> <value unit="U/L" xsi:type=" PQ" value="208" /> <interpretationCode codeSystem= "local" code="N" /> <referenceRange> <observationRange> <text>23-300</text> </observationRange> </referenceRange> </ observation> </component> </organizer> </entry> & lt;entry> <organizer moodCode="EVN" classCode="BATTERY& quot;> <templateId root="2.16.840.1.345932.10.20.22.4.1" /& gt; <id nullFlavor="NA" /> <code codeSystem=" local" code="LCBC" displayName="L100.0050" /> & lt;statusCode code="completed" /> <component> &lt ;observation moodCode="EVN" classCode="OBS"> &lt ;templateId root="2.16.840.1.877655.10.20.22.4.2" /> < id nullFlavor="NA" /> <code codeSystem="local&quot ; code="100.0150" displayName="WBC - WHITE BLOOD COUNT" /&gt ; <statusCode code="completed" /> < effectiveTime value="646880643429" /> <value unit=&quot ;T/MM3" xsi:type="PQ" value="6.2" /> < interpretationCodecodeSystem="local" code="N" /> <referenceRange> <observationRange> < text>4.5-11.0</text> </observationRange> < /referenceRange> </observation> </component> &lt ;component> <observation moodCode="EVN" classCode=" OBS"> <templateId root="2.16.840.1.500898.10.20.22.4.2& quot; /> <id nullFlavor="NA" /> <code codeSystem="local" code="100.0250" displayName="RED BLOOD COUNT" /> <statusCode code="completed" /&gt ; <effectiveTime value="739459325758" /> < value unit="M/MM3" xsi:type="PQ" value="3.92" /&gt ; <interpretationCode codeSystem="local" code="L&quot ; /> <referenceRange> <observationRange> <text>4.00-5.20</text> </observationRange> </referenceRange> </observation> </component& gt; <component> <observation moodCode="EVN" classCode="OBS"> <templateId root=" 2.16.840.1.597869.10.20.22.4.2" /> <id nullFlavor="NA& quot; /> <code codeSystem="local" code="100.0300& quot; displayName="HGB - HEMOGLOBIN" /> <statusCode code="completed" /> <effectiveTime value=" 086326554043" /> <value unit="GM/DL" xsi:type=& quot;PQ" value="10.8" /> <interpretationCode codeSystem="local" code="L" /> < referenceRange> <observationRange> <text> 12-16</text> </observationRange> </ referenceRange> </observation> </component> < component> <observation moodCode="EVN" classCode=" OBS"> <templateId root="2.16.840.1.683529.10.20.22.4.2& quot; /> <id nullFlavor="NA" /> <code codeSystem="local" code="100.0400" displayName="HCT - HEMATOCRIT" /> <statusCode code="completed" /> <effectiveTime value="206712362805" /> < value unit="%" xsi:type="PQ" value="34.4" /> <interpretationCode codeSystem="local" code="L& quot; /> <referenceRange> <observationRange> <text>36-46</text> </observationRange> </referenceRange> </observation> </component& gt; <component> <observation moodCode="EVN" classCode="OBS"> <templateId root=" 2.16.840.1.434366.10.20.22.4.2" /> <id nullFlavor="NA" / > <code codeSystem="local" code="100.0550" displayName="MEAN CORPUSCULAR VOLUME" /> <statusCode code="completed" /> <effectiveTime value=" 277572960852" /> <value unit="UM3" xsi:type=" PQ" value="87.8" /> <interpretationCode codeSystem ="local" code="N" /> <referenceRange> <observationRange> <text>80-100</text> </observationRange> </referenceRange> </ observation> </component> <component> < observation moodCode="EVN" classCode="OBS"> < templateId root="2.16.840.1.602943.10.20.22.4.2" /> < id nullFlavor="NA" /> <code codeSystem="local&quot ; code="100.0600" displayName="MEAN CORPUSCULAR HGB" /> <statusCode code="completed" /> < effectiveTime value="231779672915" /> <value unit=&quot ;UUG" xsi:type="PQ" value="27.6" /> < interpretationCode codeSystem="local" code="N" /> <referenceRange> <observationRange> < text>26-34</text> </observationRange> </ referenceRange> </observation> </component> < component> <observation moodCode="EVN" classCode="OBS& quot;> <templateId root="2.16.840.1.034054.10.20.22.4.2&quot ; /> <id nullFlavor="NA" /> <code codeSystem="local" code="100.0650" displayName="MEAN CORPUSCULAR HGB CONC([facility]" /> <statusCode code=" completed" /> <effectiveTime value="538303505068" /> <value unit="GM/DL" xsi:type="PQ" value=& quot;31.4" /> <interpretationCode codeSystem="local& quot; code="N" /> <referenceRange> < observationRange> <text>31-37</text> </ observationRange> </referenceRange> </observation&gt ; </component> <component> <observation moodCode ="EVN" classCode="OBS"> <templateId root=& quot;2.16.840.1.393551.10.20.22.4.2" /> <id nullFlavor=&quot ;NA" /> <code codeSystem="local" code=" 100.0750" displayName="RDW STANDARD DEVIATION" /> &lt ;statusCode code="completed" /> <effectiveTime value=& quot;[id number]" /> <value unit="FL" xsi:type=& quot;PQ" value="49.3" /> <interpretationCode codeSystem="local" code="N" /> < referenceRange> <observationRange> <text> 36.9-50.2</text> </observationRange> </ referenceRange> </observation> </component> < component> <observation moodCode="EVN" classCode=" OBS"> <templateId root="[id number]& quot; /> <id nullFlavor="NA" /> <code codeSystem="local" code="100.0850" displayName="PLT - PLATELET COUNT" /><statusCode code="completed" /> <effectiveTime value="[id number]" /> <value unit="T/MM3" xsi:type="PQ" value="287" /> <interpretationCode codeSystem="local" code="N" /&gt ; <referenceRange> <observationRange> <text>130-400</text> </observationRange> </referenceRange> </observation> </component> <component> <observation moodCode="EVN" classCode= "OBS"> <templateId root=" 2.16.840.1.171585.10.20.22.4.2" /> <id nullFlavor="NA& quot; /> <code codeSystem="local" code="100.0950& quot; displayName="MEAN PLATELET VOLUME" /> < statusCode code="completed" /> <effectiveTime value=& quot;841621475121" /> <value unit="UM3" xsi:type=& quot;PQ" value="10.2" /> <interpretationCode codeSystem="local" code="N" /> < referenceRange> <observationRange> <text> 9.4-12.4</text> </observationRange> </ referenceRange> </observation> </component> < component> <observation moodCode="EVN" classCode=" OBS"> <templateId root="2.16.840.1.192541.10.20.22.4.2& quot; /> <id nullFlavor="NA" /> <code codeSystem="local" code="100.1050" displayName=" NEUTROPHILS % (AUTO)" /> <statusCode code=" completed" /> <effectiveTime value="463219091971" /> <value unit="%" xsi:type="PQ" value="69.7" /> <interpretationCode codeSystem=" local" code="H" /> <referenceRange> < observationRange> <text>33-66</text> < /observationRange> </referenceRange> </observation& gt; </component> <component> <observation moodCode="EVN" classCode="OBS"> <templateId root=&quot ;2..840.1.609577.10.20.22.4.2" /> <id nullFlavor="NA& quot; /> <code codeSystem="local" code="100.1100& quot; displayName="LYMPHOCYTES % (AUTO)" /> < statusCode code="completed" /> <effectiveTime value=& quot;552422283255" /> <value unit="%" xsi: type="PQ" value="19.8" /> < interpretationCode codeSystem="local" code="L" /> <referenceRange> <observationRange> < text>23-45</text> </observationRange> </ referenceRange> </observation> </component> < component> <observation moodCode="EVN" classCode=" OBS"> <templateId root="2.16.840.1.912151.10.20.22.4.2& quot; /> <id nullFlavor="NA" /> <code codeSystem="local" code="100.1150" displayName=" MONOCYTES % (AUTO)" /> <statusCode code=" completed" /> <effectiveTime value="702609038203" /> <value unit="%" xsi:type="PQ" value=" 6.9" /> <interpretationCode codeSystem="local" code="N" /> <referenceRange> < observationRange> <text>0-9.0</text> < /observationRange> </referenceRange> </observation& gt; </component> <component> <observation moodCode="EVN" classCode="OBS"> <templateId root="2.16.840.1.549121.10.20.22.4.2" /> <id nullFlavor ="NA" /> <code codeSystem="local" code=" 100.1200" displayName="EOSINOPHILS % (AUTO)" /> <statusCode code="completed" /> <effectiveTime value="012976645848" /> <value unit="%& quot; xsi:type="PQ" value="3.1" /> < interpretationCode codeSystem="local" code="N" /> <referenceRange> <observationRange> <text> 0-4</text> </observationRange> </ referenceRange> </observation> </component> < component> <observation moodCode="EVN" classCode=" OBS"> <templateId root="2.16.840.1.377579.10.20.22.4.2& quot; /> <id nullFlavor="NA" /> <code codeSystem="local" code="100.1250" displayName=" BASOPHILS % (AUTO)" /> <statusCode code=" completed" /> <effectiveTime value="835366610804" /> <value unit="%" xsi:type="PQ" value="0.3" /> <interpretationCode codeSystem=" local" code="N" /> <referenceRange> <observationRange> <text>0-2</text> & lt;/observationRange> </referenceRange> </ observation> </component> <component> < observation moodCode="EVN" classCode="OBS"> < templateId root="2.16.840.1.959226.10.20.22.4.2" /> < id nullFlavor="NA" /> <code codeSystem="local&quot ; code="100.1275" displayName="IMMATURE GRANULOCYTE % ( AUTO)"/> <statusCode code="completed" /> <effectiveTime value="498073478373" /> <value unit="%" xsi:type="PQ" value="0.2" /> <interpretationCode codeSystem="local" code="N" /> <referenceRange> <observationRange> <text>0.0-0.5</text> </observationRange> </referenceRange> </observation> </component& gt; <component> <observation moodCode="EVN" classCode="OBS"> <templateId root=" 2.16.840.1.637998.10.20.22.4.2" /> <id nullFlavor="NA& quot; /> <code codeSystem="local" code="100.1300& quot; displayName="NEUTROPHILS # (AUTO)" /> < statusCode code="completed" /> <effectiveTime value=& quot;913132880661" /> <value unit="T/MM3" xsi:type ="PQ" value="4.3" /> <interpretationCode codeSystem="local" code="N" /> < referenceRange> <observationRange> <text> 1.8-7.7</text> </observationRange> </ referenceRange> </observation> </component> < component> <observation moodCode="EVN" classCode=" OBS"> <templateId root="2.16.840.1.069990.10.20.22.4.2& quot; /> <id nullFlavor="NA" /> <code codeSystem="local" code="100.1350" displayName=" LYMPHOCYTES # (AUTO)" /> <statusCode code="completed& quot; /> <effectiveTime value="360637125990" /> <value unit="T/MM3" xsi:type="PQ" value="1.2& quot; /> <interpretationCode codeSystem="local" code=& quot;N" /> <referenceRange> <observationRange& gt; <text>1-4.8</text> </observationRange > </referenceRange> </observation> </ component> <component> <observation moodCode="EVN&quot ; classCode="OBS"> <templateId root=" 2.16.840.1.470135.10.20.22.4.2" /> <id nullFlavor="NA& quot; /> <code codeSystem="local" code="100.1400& quot; displayName="MONOCYTES # (AUTO)" /> <statusCode code="completed" /> <effectiveTime value=" 545181532000" /> <value unit="T/MM3" xsi:type=& quot;PQ" value="0.4" /> <interpretationCode codeSystem="local" code="N" /> < referenceRange> <observationRange> <text> 0-0.8</text> </observationRange> </ referenceRange> </observation> </component> < component> <observation moodCode="EVN" classCode="OBS& quot;> <templateId root="2.16.840.1.919339.10.20.22.4.2&quot ; /> <id nullFlavor="NA" /> <code codeSystem="local" code="100.1450" displayName=" EOSINOPHILS# (AUTO)" /> <statusCode code="completed& quot; /> <effectiveTime value="160650422483" /> <value unit="T/MM3" xsi:type="PQ" value="0.2& quot; /> <interpretationCode codeSystem="local" code=& quot;N" /> <referenceRange> < observationRange> <text>0-0.5</text> < /observationRange> </referenceRange> </observation&gt ; </component> <component> <observation moodCode ="EVN" classCode="OBS"> <templateId root=& quot;2.16.840.1.162439.10.20.22.4.2" /> <id nullFlavor=&quot ;NA" /> <code codeSystem="local" code=" 100.1500" displayName="BASOPHILS # (AUTO)" /> < statusCode code="completed" /> <effectiveTime value=& quot;903940927419" /> <value unit="T/MM3" xsi:type ="PQ" value="0.0" /> <interpretationCode codeSystem="local" code="N" /> <referenceRange> <observationRange> <text>0-0.2</text> </observationRange> </referenceRange> & lt;/observation> </component> <component> < observation moodCode="EVN" classCode="OBS"> < templateId root="2.16.840.1.091918.10.20.22.4.2" /> < id nullFlavor="NA" /> <code codeSystem="local&quot ; code="100.1525" displayName="IMMATURE GRANULOCYTE # (AUTO)&quot ; /> <statusCode code="completed" /> < effectiveTime value="574839366981" /> <value unit=&quot ;T/MM3" xsi:type="PQ" value="0.01" /> < interpretationCode codeSystem="local" code="N" /> <referenceRange> <observationRange> < text>0.00-0.03</text> </observationRange> </ referenceRange> </observation> </component> </ organizer> </entry> <entry> <organizer moodCode="EVN " classCode="BATTERY"> <templateId root=" 2.16.840.1.214680.10.20.22.4.1" /> <id nullFlavor="NA&quot ; /> <code codeSystem="local" code="LBMP" displayName="L200.0050" /> <statusCode code="completed " /> <component> <observation moodCode="EVN& quot; classCode="OBS"> <templateId root=" 2.16.840.1.590195.10.20.22.4.2" /> <id nullFlavor="NA" / > <code codeSystem="local" code="200.0097" displayName="ICTERUS" /> <statusCode code=" completed" /> <effectiveTime value="917608157247" /> <value unit="" xsi:type="PQ" value="& amp;lt; 2" /> <interpretationCode codeSystem="local& quot; code="N" /> <referenceRange> < observationRange> <text>0-7</text> </ observationRange> </referenceRange> </observation> </component> <component> <observation moodCode=& quot;EVN" classCode="OBS"> <templateId root=" 2.16.840.1.022838.10.20.22.4.2" /> <id nullFlavor="NA& quot; /> <code codeSystem="local" code="200.0098& quot; displayName="HEMOLYSIS" /> <statusCode code=&quot ;completed" /> <effectiveTime value="711075243800&quot ; /> <value unit="" xsi:type="PQ" value=&quot ;< 15" /> <interpretationCode codeSystem="local& quot; code="N" /> <referenceRange> < observationRange><text>0-25</text> </ observationRange> </referenceRange> </observation> </component> </organizer> </entry> <entry> <organizer moodCode="EVN" classCode="BATTERY"> <templateId root="2.16.840.1.872549.10.20.22.4.1" /> < id nullFlavor="NA" /><code codeSystem="local" code=& quot;RODO" displayName="L600.0100" /> <statusCode code=& quot;completed" /> <component> <observation moodCode="EVN" classCode="OBS"> <templateId root="216.840.1.201376.10.20.22.4.2" /> <id nullFlavor ="NA" /> <code codeSystem="local" code=" 600.0500" displayName="SPECIMEN TYPE, URINE" /> < statusCode code="completed" /> <effectiveTime value=& quot;223902118772" /> <value unit="" xsi:type=& quot;PQ" value="CLEANCATCH-MIDSTREAM" /> < interpretationCode codeSystem="local" code="N" /> <referenceRange> <observationRange> < text /> </observationRange> </referenceRange&gt ; </observation> </component> <component> <observation moodCode="EVN" classCode="OBS"> <templateId root="2.16.840.1.345975.10.20.22.4.2" /> <id nullFlavor="NA" /> <code codeSystem=" local" code="600.0550" displayName="COLOR,URINE" /> <statusCode code="completed" /> < effectiveTime value="004196171825" /> <value unit=&quot ;" xsi:type="PQ" value="YELLOW" /> < interpretationCode codeSystem="local" code="N" /> <referenceRange> <observationRange> <text> YELLOW</text> </observationRange> </ referenceRange> </observation> </component> < component> <observation moodCode="EVN" classCode=" OBS"><templateId root="2.16.840.1.742622.10.20.22.4.2" /&gt ; <id nullFlavor="NA" /> <code codeSystem=& quot;local" code="600.0600" displayName="TURBIDITY, URINE& quot; /> <statusCode code="completed" />< effectiveTime value="126710451136" /> <value unit=&quot ;" xsi:type="PQ" value="CLEAR" /> < interpretationCode codeSystem="local" code="N" /> <referenceRange> <observationRange> <text& gt;CLEAR</text> </observationRange> </ referenceRange> </observation> </component> < component> <observation moodCode="EVN" classCode=" OBS"> <templateId root="2.16.840.1.154586.10.20.22.4.2& quot; /> <id nullFlavor="NA" /> <code codeSystem="local" code="600.0650" displayName=" SPECIFIC GRAVITY,URINE" /> <statusCode code="completed& quot; /> <effectiveTime value="588497173027" /> <value unit="" xsi:type="PQ" value="<= 1.005" /> <interpretationCode codeSystem="local" code="La" /> <referenceRange> < observationRange> <text>1.015-1.025</text> </observationRange> </referenceRange> </ observation> </component> <component> < observation moodCode="EVN" classCode="OBS"> < templateId root="2.16.840.1.906279.10.20.22.4.2" /> < id nullFlavor="NA" /> <code codeSystem="local&quot ; code="600.0700" displayName="PH, URINE - DIPSTICK" /> <statusCode code="completed" /> < effectiveTime value="086167065790" /> <value unit=&quot ;" xsi:type="PQ" value="6.5" /> < interpretationCode codeSystem="local" code="N" /> < referenceRange> <observationRange> <text> 5.0-8.0</text> </observationRange> </ referenceRange> </observation> </component> < component> <observation moodCode="EVN" classCode=" OBS"> <templateId root="2.16.840.1.962826.10.20.22.4.2& quot; /> <id nullFlavor="NA" /> <code codeSystem="local" code="600.0750" displayName=" LEUKOCYTE ESTERASE ,URINE" /> <statusCode code=" completed" /> <effectiveTime value="289326342997" /> <value unit="" xsi:type="PQ" value=" NEGATIVE" /> <interpretationCode codeSystem="local" code=& quot;N" /> <referenceRange> < observationRange> <text>NEGATIVE</text> </ observationRange> </referenceRange> </observation&gt ; </component> <component> <observation moodCode ="EVN" classCode="OBS"> <templateId root=& quot;2.16.840.1.178649.10.20.22.4.2" /> <id nullFlavor=&quot ;NA" /> <code codeSystem="local" code=" 600.0800" displayName="NITRITE,URINE" /> < statusCode code="completed" /> <effectiveTime value=& quot;207787153975" /> <value unit="" xsi:type=& quot;PQ" value="NEGATIVE" /> <interpretationCode codeSystem="local" code="N" /> < referenceRange> <observationRange> <text> NEGATIVE</text> </observationRange> </ referenceRange> </observation> </component> < component> <observation moodCode="EVN" classCode=" OBS"> <templateId root="2.16.840.1.402964.10.20.22.4.2& quot; /> <id nullFlavor="NA" /> <code codeSystem="local" code="600.0850" displayName="PROTEIN ,URINE - DIPSTICK" /> <statusCode code="completed&quot ; /> <effectiveTime value="445531142630" /> < value unit="" xsi:type="PQ" value="NEGATIVE" /&gt ; <interpretationCode codeSystem="local" code="N&quot ; /> <referenceRange> <observationRange> <text>NEGATIVE</text> </observationRange&gt ; </referenceRange> </observation> </ component> <component><observation moodCode="EVN" classCode="OBS"> <templateId root=" 2.16.840.1.087365.10.20.22.4.2" /> <id nullFlavor="NA& quot; /> <code codeSystem="local" code="600.0900" displayName="GLUCOSE, URINE- DIPSTICK" /> <statusCode code="completed" /> <effectiveTime value=" 104211749090" /> <value unit="" xsi:type="PQ& quot; value="NEGATIVE" /> <interpretationCode codeSystem="local" code="N" /> < referenceRange> <observationRange> <text>NEGATIVE</ text> </observationRange> </referenceRange> </observation> </component> <component> <observation moodCode="EVN" classCode="OBS"> <templateId root="2.16.840.1.871261.10.20.22.4.2" /> <id nullFlavor="NA" /> <code codeSystem=" local" code="600.0950" displayName="KETONES,URINE - DIPSTICK " /> <statusCode code="completed" /> & lt;effectiveTime value="230845536378" /> <value unit=& quot;" xsi:type="PQ" value="NEGATIVE" /> & lt;interpretationCode codeSystem="local" code="N" /> <referenceRange> <observationRange> & lt;text>NEGATIVE</text> </observationRange> & lt;/referenceRange> </observation> </component> <component> <observation moodCode="EVN" classCode=& quot;OBS"> <templateId root=" 2.16.840.1.975930.10.20.22.4.2" /> <id nullFlavor="NA& quot; /> <code codeSystem="local" code="600.1000& quot; displayName="UROBILINOGEN,URINE" /> <statusCode code="completed" /> <effectiveTime value=" 729372297641" /> <value unit="EU/DL" xsi:type=& quot;PQ" value="0.2" /> <interpretationCode codeSystem="local" code="N" /> < referenceRange> <observationRange> <text> NORMAL</text> </observationRange> </referenceRange& gt; </observation> </component> <component> <observation moodCode="EVN" classCode="OBS"> <templateId root="2.16.840.1.351009.10.20.22.4.2" /> & lt;id nullFlavor="NA" /> <code codeSystem="local& quot; code="600.1050" displayName="BILIRUBIN,URINE - DIPSTICK& quot; /> <statusCode code="completed" /> & lt;effectiveTime value="013565187748" /> <value unit=& quot;" xsi:type="PQ" value="NEGATIVE" /> & lt;interpretationCode codeSystem="local" code="N" /> <referenceRange> <observationRange> < text>NEGATIVE</text> </observationRange> < /referenceRange> </observation> </component> &lt ;component> <observation moodCode="EVN" classCode=" OBS"> <templateId root="2.16.840.1.941438.10.20.22.4.2& quot; /> <id nullFlavor="NA" /> <code codeSystem="local" code="600.1100" displayName="BLOOD, URINE" /> <statusCode code="completed" /> <effectiveTime value="081396974306" /> <value unit ="" xsi:type="PQ" value="TRACE-INTACT" /> <interpretationCode codeSystem="local" code="Aa" /& gt; <referenceRange> <observationRange> <text>NEGATIVE</text> </observationRange> </referenceRange> </observation> </component> <component> <observation moodCode="EVN" classCode=& quot;OBS"> <templateId root=" 2.16.840.1.558752.10.20.22.4.2" /> <id nullFlavor="NA& quot; /> <code codeSystem="local" code="600.2450& quot; displayName="URINEMICRO" /> <statusCode code=& quot;completed" /> <effectiveTime value="438669659776& quot; /> <value unit="" xsi:type="PQ" value=& quot;MICROSCOPIC NOT IND." /> <interpretationCode codeSystem ="local" code="N" /> <referenceRange> <observationRange> <text /> </ observationRange> </referenceRange> </observation&gt ; </component> </organizer> </entry> <entry> <organizer moodCode="EVN" classCode="BATTERY"> <templateId root="2.16.840.1.132302.10.20.22.4.1" /> < id nullFlavor="NA" /> <code codeSystem="local" code="LCBC" displayName="L100.0050" /> < statusCode code="completed" /> <component> < observation moodCode="EVN" classCode="OBS"> < templateId root="2.16.840.1.326963.10.20.22.4.2" /> < id nullFlavor="NA" /> <code codeSystem="local&quot ; code="100.0150" displayName="WBC - WHITE BLOOD COUNT" /&gt ; <statusCode code="completed" /> <effectiveTime value="733908668391" /> <value unit="T/MM3" xsi:type="PQ" value="8.1" /> < interpretationCode codeSystem="local" code="N" /> < referenceRange> <observationRange> <text> 4.5-11.0</text> </observationRange> </ referenceRange> </observation> </component> < component> <observation moodCode="EVN" classCode=" OBS"> <templateId root="2.16.840.1.979449.10.20.22.4.2& quot; /> <id nullFlavor="NA" /> <code codeSystem="local" code="100.0250" displayName="RED BLOOD COUNT" /> <statusCode code="completed" /&gt ; <effectiveTime value="399013584546" /> < value unit="M/MM3" xsi:type="PQ" value="4.23" /&gt ; <interpretationCode codeSystem="local" code="N&quot ; /> <referenceRange> <observationRange> <text>4.00-5.20</text> </observationRange&gt ; </referenceRange> </observation> </ component> <component> <observation moodCode="EVN& quot; classCode="OBS"> <templateId root=" 2.16.840.1.034824.10.20.22.4.2" /> <id nullFlavor="NA& quot; /> <code codeSystem="local" code="100.0300& quot; displayName="HGB - HEMOGLOBIN" /> <statusCode code="completed" /> <effectiveTime value=" 812743903351" /> <value unit="GM/DL" xsi:type=& quot;PQ" value="11.6" /> <interpretationCode codeSystem="local" code="L" /> < referenceRange> <observationRange> <text> 12-16</text> </observationRange> </referenceRange& gt; </observation> </component> <component> <observation moodCode="EVN" classCode="OBS"> <templateId root="2.16.840.1.010847.10.20.22.4.2" /> <id nullFlavor="NA" /> <code codeSystem=&quot ;local" code="100.0400" displayName="HCT -HEMATOCRIT" / > <statusCode code="completed" /> < effectiveTime value="705890233980" /> <value unit=&quot ;%" xsi:type="PQ" value="36.9" /> & lt;interpretationCode codeSystem="local" code="N" /> <referenceRange> <observationRange> <text& gt;36-46</text> </observationRange> </ referenceRange> </observation> </component> < component> <observation moodCode="EVN" classCode=" OBS"> <templateId root="2.16.840.1.557386.10..22.4.2& quot; /> <id nullFlavor="NA" /> < codecodeSystem="local" code="100.0550" displayName=" MEAN CORPUSCULAR VOLUME" /> <statusCode code="completed " /> <effectiveTime value="624522924125" /> <value unit="UM3" xsi:type="PQ" value="87.2& quot; /> <interpretationCode codeSystem="local" code=& quot;N" /> <referenceRange> < observationRange> <text>80-100</text> &lt ;/observationRange> </referenceRange> </observation& gt; </component> <component> <observation moodCode="EVN" classCode="OBS"> <templateId root="2.16.840.1.517096.10..22.4.2" /> <id nullFlavor ="NA" /> <code codeSystem="local" code=" 100.0600" displayName="MEAN CORPUSCULAR HGB" /> < statusCode code="completed" /> <effectiveTime value=& quot;082728520059" /> <value unit="UUG" xsi:type=& quot;PQ" value="27.4" /> <interpretationCode codeSystem="local" code="N" /> < referenceRange> <observationRange> <text> 26-34</text> </observationRange> </referenceRange&gt ; </observation> </component> <component> <observation moodCode="EVN" classCode="OBS"> <templateId root="2.16.840.1.325421.10.20.22.4.2" />< id nullFlavor="NA" /> <code codeSystem="local&quot ; code="100.0650" displayName="MEAN CORPUSCULAR HGB CONC([facility]& quot; /> <statusCode code="completed" /> & lt;effectiveTime value="125000093486" /><value unit="GM/DL& quot; xsi:type="PQ" value="31.4" /> < interpretationCode codeSystem="local" code="N" /> <referenceRange> <observationRange> < text>31-37</text> </observationRange> </ referenceRange> </observation> </component> < component> <observation moodCode="EVN" classCode=" OBS"> <templateId root="2.16.840.1.668130.10.20.22.4.2& quot; /> <id nullFlavor="NA" /> <code codeSystem="local" code="100.0750" displayName="RDW STANDARD DEVIATION" /> <statusCode code="completed&quot ; /> <effectiveTime value="547428395054" /> <value unit="FL" xsi:type="PQ" value="47.9" / > <interpretationCode codeSystem="local" code="N& quot; /> <referenceRange> <observationRange> <text>36.9-50.2</text> </ observationRange> </referenceRange> </observation> </component> <component> <observation moodCode= "EVN" classCode="OBS"> <templateId root=&quot ;2.16.840.1.977953.10.20.22.4.2" /> <id nullFlavor="NA& quot; /> <code codeSystem="local" code="100.0850& quot; displayName="PLT - PLATELET COUNT" /> < statusCode code="completed" /> <effectiveTime value=& quot;925269950806" /> <value unit="T/MM3" xsi:type ="PQ" value="305" /> <interpretationCode codeSystem="local" code="N" /> < referenceRange> <observationRange> <text>130- 400</text> </observationRange> </ referenceRange> </observation> </component> < component> <observation moodCode="EVN" classCode=" OBS"> <templateId root="2.16.840.1.354461.10.20.22.4.2& quot; /> <id nullFlavor="NA" /> <code codeSystem="local" code="100.0950" displayName="MEAN PLATELET VOLUME" /> <statusCode code="completed" / > <effectiveTime value="685322378049" /> & lt;value unit="UM3" xsi:type="PQ" value="10.4" /& gt; <interpretationCode codeSystem="local" code="N& quot; /> <referenceRange> <observationRange> <text>9.4-12.4</text> </observationRange > </referenceRange> </observation> </ component> <component> <observation moodCode="EVN& quot; classCode="OBS"> <templateId root=" 2.16.840.1.370529.10.20.22.4.2" /> <id nullFlavor="NA& quot; /> <code codeSystem="local" code="100.1050& quot; displayName="NEUTROPHILS % (AUTO)" /> < statusCode code="completed" /> <effectiveTime value=& quot;807820585590" /> <value unit="%" xsi: type="PQ" value="69.2" /> < interpretationCode codeSystem="local" code="H" /> <referenceRange> <observationRange> < text>33-66</text> </observationRange> </ referenceRange> </observation> </component> < component> <observation moodCode="EVN" classCode=" OBS"> <templateId root="2.16.840.1.515392.10.20.22.4.2& quot; /> <id nullFlavor="NA" /> <code codeSystem="local" code="100.1100" displayName=" LYMPHOCYTES % (AUTO)" /> <statusCode code=" completed" /> <effectiveTime value="559057916435" /> <value unit="%" xsi:type="PQ" value="20.3" /> <interpretationCode codeSystem=" local" code="L" /> <referenceRange> <observationRange> <text>23-45</text> </observationRange> </referenceRange> </ observation> </component> <component> < observation moodCode="EVN" classCode="OBS"> < templateId root="2.16.840.1.925496.10.20.22.4.2" /> <id nullFlavor="NA" /> <code codeSystem="local" code="100.1150" displayName="MONOCYTES % (AUTO)" /& gt; <statusCode code="completed" /> < effectiveTime value="984999639692" /> <value unit="& #37;" xsi:type="PQ" value="7.4" /> < interpretationCode codeSystem="local" code="N" /> <referenceRange> <observationRange> < text>0-9.0</text> </observationRange> </ referenceRange> </observation> </component> < component> <observation moodCode="EVN" classCode=" OBS"> <templateId root="2.16.840.1.152060.10.20.22.4.2& quot; /> <id nullFlavor="NA" /> <code codeSystem="local" code="100.1200" displayName=" EOSINOPHILS % (AUTO)" /> <statusCode code=" completed" /> <effectiveTime value="920471069810" /> <value unit="%" xsi:type="PQ" value="2.7" /> <interpretationCode codeSystem=" local" code="N" /> <referenceRange> &lt ;observationRange> <text>0-4</text> </ observationRange> </referenceRange> </observation&gt ; </component> <component> <observation moodCode=& quot;EVN" classCode="OBS"> <templateId root=" 2.16.840.1.398763.10..22.4.2" /> <id nullFlavor="NA& quot; /> <code codeSystem="local" code="100.1250& quot; displayName="BASOPHILS % (AUTO)" /> < statusCode code="completed"/> <effectiveTime value=& quot;992464190681" /> <value unit="%" xsi: type="PQ" value="0.2" /> <interpretationCode codeSystem="local" code="N" /> < referenceRange> <observationRange> <text> 0-2</text> </observationRange> </referenceRange& gt; </observation> </component> <component> <observation moodCode="EVN" classCode="OBS"> <templateId root="2.16.840.1.107860.10.20.22.4.2" /> <id nullFlavor="NA"/> <code codeSystem=" local" code="100.1275" displayName="IMMATURE GRANULOCYTE & amp;#37; (AUTO)" /> <statusCode code="completed" / > <effectiveTime value="034049538759" /> & lt;value unit="%" xsi:type="PQ" value="0.2&quot ; /> <interpretationCode codeSystem="local" code=" N" /> <referenceRange> <observationRange&gt ; <text>0.0-0.5</text> </observationRange > </referenceRange> </observation> </ component> <component> <observation moodCode="EVN& quot; classCode="OBS"> <templateId root=" 2.16.840.1.402503.10.20.22.4.2" /> <id nullFlavor="NA& quot;/> <code codeSystem="local" code="100.1300& quot; displayName="NEUTROPHILS # (AUTO)" /> < statusCode code="completed" /> <effectiveTime value=& quot;892906274270" /> <value unit="T/MM3" xsi:type ="PQ" value="5.6" /> <interpretationCode codeSystem="local" code="N" /> < referenceRange> <observationRange> <text>1.8-7.7 </text> </observationRange> </referenceRange& gt; </observation> </component> <component> <observation moodCode="EVN" classCode="OBS"> <templateId root="2.16.840.1.462021.10.20.22.4.2" /> <id nullFlavor="NA" /> <code codeSystem=&quot ;local" code="100.1350" displayName="LYMPHOCYTES # (AUTO)& quot; /> <statusCode code="completed" /> & lt;effectiveTime value="006271622377" /> <value unit=& quot;T/MM3" xsi:type="PQ" value="1.6" /> & lt;interpretationCode codeSystem="local" code="N"/> <referenceRange> <observationRange> &lt ;text>1-4.8</text> </observationRange> </ referenceRange> </observation> </component> < component> <observation moodCode="EVN" classCode=" OBS"> <templateId root="2.16.840.1.860908.10.20.22.4.2& quot; /> <id nullFlavor="NA" /> <code codeSystem="local" code="100.1400" displayName=" MONOCYTES # (AUTO)" /> <statusCode code="completed&quot ; /> <effectiveTime value="785589753655" /> <value unit="T/MM3" xsi:type="PQ" value="0.6&quot ; /> <interpretationCode codeSystem="local" code="N& quot; /> <referenceRange> <observationRange> <text>0-0.8</text> </observationRange> </referenceRange> </observation> </component> <component> <observation moodCode="EVN" classCode ="OBS"> <templateId root=" 2.16.840.1.964394.10.20.22.4.2" /> <id nullFlavor="NA& quot; /> <code codeSystem="local" code="100.1450& quot; displayName="EOSINOPHILS # (AUTO)" /> < statusCode code="completed" /> <effectiveTime value=& quot;246678089422" /> <value unit="T/MM3" xsi:type ="PQ" value="0.2" /> <interpretationCode codeSystem="local" code="N" /> < referenceRange> <observationRange> <text>0-0.5</ text> </observationRange> </referenceRange> </observation> </component> <component> <observation moodCode="EVN" classCode="OBS"> <templateId root="2.16.840.1.449945.10.20.22.4.2" /> <id nullFlavor="NA" /> <code codeSystem=" local" code="100.1500" displayName="BASOPHILS # (AUTO)&quot ; /> <statusCode code="completed" /> < effectiveTime value="355217039401" /> <value unit=&quot ;T/MM3" xsi:type="PQ" value="0.0" /> < interpretationCode codeSystem="local" code="N" /> <referenceRange> <observationRange> < text>0-0.2</text> </observationRange> </ referenceRange> </observation> </component> < component> <observation moodCode="EVN" classCode=" OBS"> <templateId root="2.16.840.1.768057.10.20.22.4.2& quot; /> <id nullFlavor="NA" /> <code codeSystem="local" code="100.1525" displayName=" IMMATURE GRANULOCYTE # (AUTO)" /> <statusCode code=" completed" /> <effectiveTime value="959200098831" /> <value unit="T/MM3" xsi:type="PQ" value=& quot;0.02" /> <interpretationCode codeSystem="local& quot; code="N" /> <referenceRange> < observationRange> <text>0.00-0.03</text> </ observationRange> </referenceRange> </observation&gt ; </component> </organizer> </entry> <entry> <organizer moodCode="EVN" classCode="BATTERY"> <templateId root="2.16.840.1.106127.10.20.22.4.1" /> < id nullFlavor="NA" /> <code codeSystem="local" code="LBMP" displayName="L200.0050" /> < statusCode code="completed" /> <component> < observation moodCode="EVN" classCode="OBS"> < templateId root="2.16.840.1.797817.10.20.22.4.2" /> < id nullFlavor="NA" /> <codecodeSystem="local&quot ; code="200.0097" displayName="ICTERUS" /> < statusCode code="completed" /> <effectiveTime value=& quot;024583592616" /> <value unit="" xsi:type=& quot;PQ" value="< 2" /> < interpretationCode codeSystem="local" code="N" /> < referenceRange> <observationRange> <text> 0-7</text> </observationRange> </ referenceRange> </observation> </component> < component> <observation moodCode="EVN" classCode=" OBS"> <templateId root="2.16.840.1.362518.10.20.22.4.2& quot; /> <id nullFlavor="NA" /> <code codeSystem="local" code="200.0098" displayName=" HEMOLYSIS" /> <statusCode code="completed" /> <effectiveTime value="840197665802" /> < value unit="" xsi:type="PQ" value="< 15" /& gt; <interpretationCode codeSystem="local" code="N& quot; /> <referenceRange> <observationRange> <text>0-25</text> </observationRange> </referenceRange> </observation> </component> <component> <observation moodCode="EVN" classCode=& quot;OBS"> <templateId root=" 2.16.840.1.966435.10.20.22.4.2" /> <id nullFlavor="NA& quot; /> <code codeSystem="local" code="200.0099& quot; displayName="TURBIDITY" /> <statusCode code=&quot ;completed" /> <effectiveTime value="300785015725&quot ; /> <value unit="" xsi:type="PQ" value=&quot ;< 20" /> <interpretationCode codeSystem="local& quot; code="N" /> <referenceRange> < observationRange> <text>0-20</text> </ observationRange> </referenceRange> </observation&gt ; </component> <component> <observation moodCode ="EVN" classCode="OBS"> <templateId root=& quot;2.16.840.1.619223.10.20.22.4.2" /> <id nullFlavor=&quot ;NA" /> <code codeSystem="local" code=" 200.0100" displayName="SODIUM" /> <statusCode code=" completed" /> <effectiveTime value="172308184360" /> <value unit="MEQ/L" xsi:type="PQ" value=& quot;143" /> <interpretationCode codeSystem="local&quot ; code="N" /> <referenceRange> < observationRange> <text>134-144</text> & lt;/observationRange> </referenceRange> </ observation> </component> <component> < observation moodCode="EVN" classCode="OBS"> < templateId root="2.16.840.1.787478.10.20.22.4.2" /> < id nullFlavor="NA" /> <code codeSystem="local&quot ; code="200.0150" displayName="POTASSIUM" /> &lt ;statusCode code="completed" /> <effectiveTime value=& quot;435160650041" /> <value unit="MEQ/L" xsi:type ="PQ" value="4.2" /> <interpretationCode codeSystem="local" code="N" /> < referenceRange> <observationRange> <text>3.6-5</ text> </observationRange> </referenceRange> </observation> </component> <component> <observation moodCode="EVN" classCode="OBS"> <templateId root="2.16.840.1.911770.10.20.22.4.2" /> <id nullFlavor="NA" /> <code codeSystem=" local" code="200.0200" displayName="CHLORIDE" /> <statusCode code="completed" /> < effectiveTime value="095857533910" /> <value unit=&quot ;MEQ/L" xsi:type="PQ" value="102" /> < interpretationCode codeSystem="local" code="N" /> <referenceRange> <observationRange> <text>98- 107</text> </observationRange> </ referenceRange> </observation> </component> < component> <observation moodCode="EVN" classCode=" OBS"> <templateId root="2.16.840.1.786571.10.20.22.4.2& quot; /> <id nullFlavor="NA" /> <code codeSystem="local" code="200.0250" displayName="CO2 - CARBON DIOXIDE" /> <statusCode code="completed" /& gt; <effectiveTime value="016440250494" /> &lt ;value unit="MEQ/L" xsi:type="PQ" value="29" /&gt ; <interpretationCode codeSystem="local" code="N&quot ; /> <referenceRange> <observationRange> <text>22-30</text> </observationRange> </referenceRange> </observation> </component& gt; <component> <observation moodCode="EVN" classCode="OBS"> <templateId root=" 2.16.840.1.689829.10..22.4.2" /> <id nullFlavor="NA& quot; /> <code codeSystem="local" code="200.0300& quot; displayName="ANION GAP" /> <statusCode code=&quot ;completed" /> <effectiveTime value="736318327031&quot ; /> <value unit="MEQ/L" xsi:type="PQ" value= "12" /> <interpretationCode codeSystem="local&quot ; code="N" /> <referenceRange> < observationRange> <text>5-15</text> </ observationRange> </referenceRange> </observation&gt ; </component> <component> <observation moodCode=& quot;EVN" classCode="OBS"> <templateId root=" 2.16.840.1.499672.10.20.22.4.2" /> <id nullFlavor="NA& quot; /> <code codeSystem="local" code="200.0350& quot; displayName="BLOOD UREA NITROGEN" /> <statusCode code="completed" /> <effectiveTime value=" 514216901412" /> <value unit="MG/DL" xsi:type=& quot;PQ" value="27.0" /> <interpretationCode codeSystem="local" code="H" /> < referenceRange> <observationRange> <text> 7-17</text> </observationRange> </ referenceRange> </observation> </component> < component> <observation moodCode="EVN" classCode="OBS& quot;> <templateId root="2.16.840.1.129665.10.20.22.4.2&quot ; /> <id nullFlavor="NA" /> <code codeSystem="local" code="200.0400" displayName=" CREATININE" /> <statusCode code="completed" /> <effectiveTime value="283035116101" /> < value unit="MG/DL" xsi:type="PQ" value="1.0" /&gt ; <interpretationCode codeSystem="local" code="N&quot ; /> <referenceRange> <observationRange> <text>0.7-1.2</text> </observationRange> </referenceRange> </observation> </ component> <component> <observation moodCode="EVN& quot; classCode="OBS"> <templateId root=" 2.16.840.1.749634.10.20.22.4.2" /> <id nullFlavor="NA& quot; /> <code codeSystem="local" code="200.0450& quot; displayName="BUN/CREATININE RATIO" /> < statusCode code="completed" /> <effectiveTime value=& quot;713759528933" /> <value unit="RATIO" xsi:type ="PQ" value="27" /> <interpretationCode codeSystem="local" code="H" /> < referenceRange> <observationRange> <text> 6-26</text> </observationRange> </referenceRange& gt; </observation> </component> <component> <observation moodCode="EVN" classCode="OBS"> <templateId root="2.16.840.1.676826.10.20.22.4.2" /> <id nullFlavor="NA" /> <code codeSystem="local& quot; code="200.0475" displayName="GLOMERULAR FILTRATION RATE& quot; /> <statusCode code="completed" /> & lt;effectiveTime value="264696533737" /><value unit="&quot ; xsi:type="PQ" value="55" /> < interpretationCode codeSystem="local" code="N" /> <referenceRange> <observationRange> <text /& gt; </observationRange> </referenceRange> </ observation> </component> <component> < observation moodCode="EVN" classCode="OBS"> < templateId root="2.16.840.1.991140.10.20.22.4.2" /> < id nullFlavor="NA" /> <code codeSystem="local&quot ; code="200.0500" displayName="GLUCOSE" /> < statusCode code="completed" /> <effectiveTime value=& quot;928971274291" /> <value unit="MG/DL" xsi:type ="PQ" value="108" /> <interpretationCode codeSystem="local" code="N" /> < referenceRange> <observationRange> <text> 65-110</text> </observationRange> </ referenceRange></observation> </component> < component> <observation moodCode="EVN" classCode=" OBS"> <templateId root="2.16.840.1.578245.10.20.22.4.2& quot; /> <id nullFlavor="NA" /> <code codeSystem="local" code="200.0550" displayName=" OSMOLALITY,CALCULATED" /> <statusCode code="completed" /& gt; <effectiveTime value="376938712207" /> &lt ;value unit="MOSM/KG" xsi:type="PQ" value="281" /& gt; <interpretationCode codeSystem="local" code="H& quot; /> <referenceRange> <observationRange> <text>261-280</text> </observationRange> </referenceRange> </observation> </component&gt ; <component> <observation moodCode="EVN" classCode="OBS"> <templateId root=" 2.16.840.1.926766.10.20.22.4.2" /> <id nullFlavor="NA& quot; /> <code codeSystem="local" code="200.0600& quot; displayName="CALCIUM" /> <statusCode code=" completed" /> <effectiveTime value="285125770432" /> <valueunit="MG/DL" xsi:type="PQ" value=& quot;9.6" /> <interpretationCode codeSystem="local&quot ; code="N" /> <referenceRange> <observationRange > <text>8.4-10.2</text> </ observationRange> </referenceRange> </observation&gt ; </component> </organizer> </entry> <entry> <organizer moodCode="EVN" classCode="BATTERY"> <templateId root="2.16.840.1.696264.10.20.22.4.1" /><id nullFlavor="NA" /> <code codeSystem="local" code= "LTROPIH" displayName="L200.1848" /> <statusCode code="completed" /> <component> <observation moodCode="EVN" classCode="OBS"> <templateId root ="2.16.840.1.553896.10.20.22.4.2" /> <id nullFlavor=& quot;NA" /> <code codeSystem="local" code=" 200.1850" displayName="TROPONIN I" /> <statusCode code="completed" /> <effectiveTime value="886435312223&quot ; /> <value unit="ng/ml" xsi:type="PQ" value= "< 0.012" /> <interpretationCode codeSystem=& quot;local" code="N" /> <referenceRange> <observationRange> <text>0-0.12</text> </observationRange> </referenceRange> </ observation> </component> </organizer></entry> &lt ;entry> <organizer moodCode="EVN" classCode="BATTERY& quot;> <templateId root="2.16.840.1.149980.10.20.22.4.1" /& gt; <id nullFlavor="NA" /> <code codeSystem=" local" code="LCBC" displayName="L100.0050" /> & lt;statusCode code="completed" /> <component> &lt ;observation moodCode="EVN" classCode="OBS"> &lt ;templateId root="2.16.840.1.497673.10.20.22.4.2" /> < id nullFlavor="NA" /> <code codeSystem="local&quot ; code="100.0150" displayName="WBC - WHITE BLOOD COUNT" /&gt ; <statusCode code="completed" /> < effectiveTime value="461015806054" /> <value unit=&quot ;T/MM3" xsi:type="PQ" value="9.0" /> < interpretationCode codeSystem="local" code="N" /> <referenceRange> <observationRange> <text> 4.5-11.0</text> </observationRange> </ referenceRange> </observation> </component> < component> <observation moodCode="EVN" classCode=" OBS"> <templateId root="2.16.840.1.321582.10.20.22.4.2& quot; /> <id nullFlavor="NA" /> <code codeSystem="local" code="100.0250" displayName="RED BLOOD COUNT" /> <statusCode code="completed" /&gt ; <effectiveTime value="416689103520" /> < value unit="M/MM3" xsi:type="PQ" value="3.88" /&gt ; <interpretationCode codeSystem="local" code="L&quot ; /> <referenceRange> <observationRange> <text>4.00-5.20</text> </observationRange&gt ; </referenceRange> </observation> </ component> <component> <observation moodCode="EVN& quot; classCode="OBS"> <templateId root=" 2.16.840.1.930101.10.20.22.4.2" /> <id nullFlavor="NA& quot; /> <code codeSystem="local" code="100.0300& quot; displayName="HGB - HEMOGLOBIN" /> <statusCode code="completed" /> <effectiveTime value=" 487910859303" /> <value unit="GM/DL" xsi:type=& quot;PQ" value="10.7" /> <interpretationCode codeSystem ="local" code="L" /> <referenceRange> <observationRange> <text>12-16</text> & lt;/observationRange> </referenceRange> </ observation> </component> <component> < observation moodCode="EVN" classCode="OBS"> < templateId root="2.16.840.1.192427.10.20.22.4.2" /> < id nullFlavor="NA" /> <code codeSystem="local&quot ; code="100.0400" displayName="HCT - HEMATOCRIT" /> <statusCode code="completed" /> <effectiveTime value="383524868859" /> <value unit="%& quot; xsi:type="PQ" value="33.6" /> < interpretationCode codeSystem="local" code="L" /> <referenceRange> <observationRange> <text>36- 46</text> </observationRange> </ referenceRange> </observation> </component> < component> <observation moodCode="EVN" classCode=" OBS"><templateId root="2.16.840.1.248542.10.20.22.4.2" /&gt ; <id nullFlavor="NA" /> <code codeSystem=& quot;local" code="100.0550" displayName="MEAN CORPUSCULAR VOLUME" /> <statusCode code="completed" /> <effectiveTime value="709401442462" /> <value unit="UM3" xsi:type="PQ" value="86.6" /> <interpretationCode codeSystem="local" code="N" /&gt ; <referenceRange> <observationRange> <text>80-100</text> </observationRange> </referenceRange> </observation> </component> <component> <observation moodCode="EVN" classCode=" OBS"> <templateId root="2.16.840.1.667702.10.20.22.4.2& quot; /> <id nullFlavor="NA" /> <code codeSystem="local" code="100.0600" displayName="MEAN CORPUSCULAR HGB" /> <statusCode code="completed" / > <effectiveTime value="880617409292" /> & lt;value unit="UUG" xsi:type="PQ" value="27.6" /& gt; <interpretationCode codeSystem="local" code="N& quot; /> <referenceRange> <observationRange> <text>26-34</text> </observationRange&gt ; </referenceRange> </observation> </component&gt ; <component> <observation moodCode="EVN" classCode="OBS"> <templateId root=" 2.16.840.1.808907.10.20.22.4.2" /> <id nullFlavor="NA& quot; /> <code codeSystem="local" code="100.0650& quot; displayName="MEAN CORPUSCULAR HGB CONC([facility]" /> < statusCode code="completed" /> <effectiveTime value=& quot;972421727190" /> <value unit="GM/DL" xsi:type ="PQ" value="31.8" /> <interpretationCode codeSystem="local" code="N" /> < referenceRange> <observationRange> <text> 31-37</text> </observationRange> </ referenceRange> </observation> </component> < component> <observation moodCode="EVN" classCode=" OBS"> <templateId root="2.16.840.1.412169.10.20.22.4.2& quot; /> <id nullFlavor="NA" /> <code codeSystem="local" code="100.0750" displayName="RDW STANDARD DEVIATION" /> <statusCode code="completed&quot ; /> <effectiveTime value="221490942487" /> <value unit="FL" xsi:type="PQ" value="47.9" / > <interpretationCode codeSystem="local" code="N" /> <referenceRange> <observationRange> <text>36.9-50.2</text> </observationRange> </referenceRange> </observation> </component&gt ; <component> <observation moodCode="EVN" classCode="OBS"> <templateId root=" 2.16.840.1.153064.10.20.22.4.2" /> <id nullFlavor="NA" /& gt; <code codeSystem="local" code="100.0850" displayName="PLT - PLATELET COUNT" /> <statusCode code= "completed" /> <effectiveTime value="819275332831& quot; /> <value unit="T/MM3" xsi:type="PQ" value="304" /> <interpretationCode codeSystem=" local" code="N" /> <referenceRange> < observationRange> <text>130-400</text> & lt;/observationRange> </referenceRange> </ observation> </component> <component> < observation moodCode="EVN" classCode="OBS"> < templateId root="2.16.840.1.615904.10.20.22.4.2" /> < id nullFlavor="NA" /> <code codeSystem="local&quot ; code="100.0950" displayName="MEAN PLATELET VOLUME" /> <statusCode code="completed" /> < effectiveTime value="656718652612" /> <value unit=&quot ;UM3" xsi:type="PQ" value="9.8" /> < interpretationCode codeSystem="local" code="N" /> <referenceRange> <observationRange> < text>9.4-12.4</text> </observationRange> < /referenceRange> </observation> </component> &lt ;component> <observation moodCode="EVN" classCode="OBS& quot;> <templateId root="2.16.840.1.625795.10.20.22.4.2&quot ; /> <id nullFlavor="NA" /> <code codeSystem="local" code="100.1050" displayName=" NEUTROPHILS % (AUTO)" /> <statusCode code=" completed" /> <effectiveTime value="350182523355" /> <value unit="%" xsi:type="PQ" value="77.1" /> <interpretationCode codeSystem=" local" code="H" /> <referenceRange> <observationRange> <text>33-66</text> & lt;/observationRange> </referenceRange> </ observation> </component> <component> < observation moodCode="EVN" classCode="OBS"> < templateId root="2.16.840.1.370982.10.20.22.4.2" /> < id nullFlavor="NA" /> <code codeSystem="local&quot ; code="100.1100" displayName="LYMPHOCYTES % (AUTO)&quot ; /> <statusCode code="completed" /> < effectiveTime value="446021412335" /> <value unit=&quot ;%" xsi:type="PQ" value="15.9" /> & lt;interpretationCode codeSystem="local" code="L" /> <referenceRange> <observationRange> <text> 23-45</text> </observationRange> </ referenceRange> </observation> </component> < component> <observationmoodCode="EVN" classCode="OBS "> <templateId root="2.16.840.1.874985.10.20.22.4.2& quot; /> <id nullFlavor="NA" /> <code codeSystem="local" code="100.1150" displayName=" MONOCYTES % (AUTO)" /> <statusCode code=" completed" /> <effectiveTime value="089827407156" /> <value unit="%" xsi:type="PQ" value="4.9" /> <interpretationCode codeSystem=" local" code="N" /> <referenceRange> <observationRange> <text>0-9.0</text> </observationRange> </referenceRange> </ observation> </component> <component> < observation moodCode="EVN" classCode="OBS"> < templateId root="2.16.840.1.740852.10.20.22.4.2" /> < id nullFlavor="NA" /> <code codeSystem="local&quot ; code="100.1200" displayName="EOSINOPHILS % (AUTO)&quot ; /> <statusCode code="completed" /> < effectiveTime value="418575747561" /> <value unit=&quot ;%" xsi:type="PQ" value="1.7" /> & lt;interpretationCode codeSystem="local" code="N" /> <referenceRange> <observationRange> < text>0-4</text> </observationRange> </ referenceRange> </observation> </component> < component> <observation moodCode="EVN" classCode=" OBS"> <templateId root="2.16.840.1.828159.10.20.22.4.2& quot;/> <id nullFlavor="NA" /> <code codeSystem="local"code="100.1250" displayName=" BASOPHILS % (AUTO)" /> <statusCode code=" completed" /> <effectiveTime value="061214006463" /> <value unit="%" xsi:type="PQ" value="0.2" /> <interpretationCode codeSystem="local " code="N" /> <referenceRange> < observationRange> <text>0-2</text> </ observationRange> </referenceRange> </observation&gt ; </component> <component> <observation moodCode ="EVN" classCode="OBS"> <templateId root=& quot;2.16.840.1.302584.10.20.22.4.2" /><id nullFlavor="NA" /> <code codeSystem="local" code="100.1275" displayName="IMMATURE GRANULOCYTE % (AUTO)" /> &lt ;statusCode code="completed" /> <effectiveTime value=& quot;318372376280" /> <value unit="%" xsi: type="PQ" value="0.2" /> <interpretationCode codeSystem="local" code="N" /> < referenceRange> <observationRange> <text> 0.0-0.5</text> </observationRange> </referenceRange& gt; </observation> </component> <component> <observation moodCode="EVN" classCode="OBS"> <templateId root="2.16.840.1.259192.10.20.22.4.2" />< id nullFlavor="NA" /> <code codeSystem="local&quot ; code="100.1300" displayName="NEUTROPHILS # (AUTO)" /> <statusCode code="completed" /> < effectiveTime value="332604371623" /> <valueunit=" T/MM3" xsi:type="PQ" value="6.9" /> < interpretationCode codeSystem="local" code="N" /> <referenceRange> <observationRange> <text>1.8 -7.7</text> </observationRange> </ referenceRange> </observation> </component> < component> <observation moodCode="EVN" classCode=" OBS"> <templateId root="2.16.840.1.143110.10.20.22.4.2" /& gt; <id nullFlavor="NA" /> <code codeSystem ="local" code="100.1350" displayName="LYMPHOCYTES # ( AUTO)" /> <statusCode code="completed" /> <effectiveTime value="260156612144" /> <value unit=& quot;T/MM3" xsi:type="PQ" value="1.4" /> & lt;interpretationCode codeSystem="local" code="N" /> <referenceRange> <observationRange> & lt;text>1-4.8</text> </observationRange> < /referenceRange> </observation> </component> &lt ;component><observation moodCode="EVN" classCode="OBS" > <templateId root="2.16.840.1.536519.10.20.22.4.2" /& gt; <id nullFlavor="NA" /> <code codeSystem=&quot ;local" code="100.1400" displayName="MONOCYTES # (AUTO)&quot ; /> <statusCode code="completed" /> < effectiveTime value="391646975334" /> <value unit=&quot ;T/MM3" xsi:type="PQ" value="0.4" /> < interpretationCode codeSystem="local" code="N" /> <referenceRange> <observationRange> < text>0-0.8</text> </observationRange> </ referenceRange> </observation> </component> < component> <observation moodCode="EVN" classCode=" OBS"> <templateId root="2.16.840.1.526887.10.20.22.4.2& quot; /> <id nullFlavor="NA" /> <code codeSystem="local" code="100.1450" displayName=" EOSINOPHILS # (AUTO)" /> <statusCode code="completed" /&gt ; <effectiveTime value="324647531795" /> < value unit="T/MM3" xsi:type="PQ" value="0.2"/> <interpretationCode codeSystem="local" code="N&quot ; /><referenceRange> <observationRange> & lt;text>0-0.5</text> </observationRange> < /referenceRange> </observation> </component> < component> <observation moodCode="EVN" classCode=" OBS"> <templateId root="[id number]& quot; /> <id nullFlavor="NA" /> <code codeSystem="local" code="100.1500" displayName=" BASOPHILS # (AUTO)" /> <statusCode code="completed&quot ; /> <effectiveTime value="[id number]" /> <value unit="T/MM3" xsi:type="PQ" value="0.0&quot ; /> <interpretationCode codeSystem="local" code=" N" /> <referenceRange> <observationRange> <text>0-0.2</text> </observationRange&gt ; </referenceRange> </observation> </ component> <component> <observation moodCode="EVN&quot ; classCode="OBS"> <templateId root=" 2.16.840.1.306210.10.20.22.4.2" /> <id nullFlavor="NA& quot; /> <code codeSystem="local" code="100.1525& quot; displayName="IMMATURE GRANULOCYTE # (AUTO)" /> < statusCode code="completed" /> <effectiveTime value=& quot;954632150476" /> <value unit="T/MM3" xsi:type ="PQ" value="0.02" /> < interpretationCodecodeSystem="local" code="N" /> <referenceRange> <observationRange> < text>0.00-0.03</text> </observationRange> &lt ;/referenceRange> </observation> </component> < /organizer> </entry> <entry> <organizer moodCode=" EVN" classCode="BATTERY"> <templateId root=" 2.16.840.1.750246.10.20.22.4.1" /> <id nullFlavor="NA&quot ; /> <code codeSystem="local" code="LCMP" displayName="L200.0020" /> <statusCode code="completed " /> <component> <observation moodCode="EVN& quot; classCode="OBS"> <templateId root=" 2.16.840.1.374298.10.20.22.4.2" /> <id nullFlavor="NA& quot; /> <code codeSystem="local" code="200.0097& quot; displayName="ICTERUS" /> <statusCode code=" completed" /> <effectiveTime value="105148538402" /> <value unit="" xsi:type="PQ" value="& amp;lt; 2" /> <interpretationCode codeSystem="local& quot;code="N" /> <referenceRange> < observationRange> <text>0-7</text> </ observationRange> </referenceRange> </observation&gt ; </component> <component> <observationmoodCode= "EVN" classCode="OBS"> <templateId root=&quot ;2.16.840.1.504144.10.20.22.4.2" /> <id nullFlavor="NA& quot; /> <code codeSystem="local" code="200.0098& quot; displayName="HEMOLYSIS" /><statusCode code="completed " /> <effectiveTime value="199752223181" /> <value unit="" xsi:type="PQ" value="< 15" /> <interpretationCode codeSystem="local" code ="N" /> <referenceRange> <observationRange> <text>0-25</text> </observationRange&gt ; </referenceRange> </observation> </component > <component> <observation moodCode="EVN" classCode="OBS"> <templateId root=" 2.16.840.1.174699.10.20.22.4.2" /> <id nullFlavor="NA& quot; /> <code codeSystem="local" code="200.0099& quot; displayName="TURBIDITY" /> <statusCode code=&quot ;completed" /> <effectiveTime value="703380188825&quot ; /> <value unit="" xsi:type="PQ" value=&quot ;21" /> <interpretationCode codeSystem="local" code="H" /> <referenceRange> < observationRange> <text>0-20</text> </ observationRange> </referenceRange> </observation> </component> <component> <observation moodCode=& quot;EVN" classCode="OBS"> <templateId root=" 2.16.840.1.468047.10.20.22.4.2" /> <id nullFlavor="NA& quot; /> <code codeSystem="local" code="200.0100& quot; displayName="SODIUM" /> <statusCode code=" completed" /> <effectiveTime value="009463322116" /> <value unit="MEQ/L" xsi:type="PQ" value=& quot;147" /> <interpretationCode codeSystem="local&quot ; code="H" /> <referenceRange> < observationRange> <text>134-144</text> & lt;/observationRange> </referenceRange> </observation&gt ; </component> <component> <observation moodCode ="EVN" classCode="OBS"> <templateId root=& quot;2.16.840.1.756791.10.20.22.4.2" /> <id nullFlavor=&quot ;NA" /> <code codeSystem="local" code=" 200.0150" displayName="POTASSIUM" /> <statusCode code="completed" /> <effectiveTime value=" 705725632576" /> <value unit="MEQ/L" xsi:type=& quot;PQ" value="4.5" /> <interpretationCode codeSystem ="local" code="N" /> <referenceRange> <observationRange> <text>3.6-5</text> </observationRange> </referenceRange> </ observation> </component> <component> < observation moodCode="EVN" classCode="OBS"> < templateId root="2.16.840.1.431258.10.20.22.4.2" /><id nullFlavor="NA" /> <code codeSystem="local" code="200.0200" displayName="CHLORIDE" /> < statusCode code="completed"/> <effectiveTime value=& quot;927016392836" /> <value unit="MEQ/L" xsi:type ="PQ" value="106" /> <interpretationCode codeSystem="local" code="N" /> < referenceRange> <observationRange> <text> 98-107</text> </observationRange> </referenceRange > </observation> </component> <component> <observation moodCode="EVN" classCode="OBS"> <templateId root="2.16.840.1.403406.10.20.22.4.2" /> <id nullFlavor="NA" /> <code codeSystem=& quot;local" code="200.0250" displayName="CO2 - CARBON DIOXIDE" /> <statusCode code="completed" /> <effectiveTime value="521052017316" /> < value unit="MEQ/L" xsi:type="PQ" value="28" /> <interpretationCode codeSystem="local"code="N" /> <referenceRange> <observationRange> & lt;text>22-30</text> </observationRange> < /referenceRange> </observation> </component> &lt ;component> <observation moodCode="EVN" classCode=" OBS"> <templateId root="2.16.840.1.426998.10.20.22.4.2& quot; /> <id nullFlavor="NA" /> <code codeSystem="local" code="200.0300" displayName="ANION GAP" /> <statusCode code="completed" /> < effectiveTime value="777307424021" /> <value unit=&quot ;MEQ/L" xsi:type="PQ" value="13" /> < interpretationCode codeSystem="local" code="N" /> <referenceRange> <observationRange> < text>5-15</text> </observationRange> </ referenceRange> </observation> </component> < component> <observation moodCode="EVN" classCode=" OBS"> <templateId root="2.16.840.1.838917.10.20.22.4.2& quot; /> <id nullFlavor="NA" /> <code codeSystem="local" code="200.0350" displayName="BLOOD UREA NITROGEN" /> <statusCode code="completed" /& gt; <effectiveTime value="574054680170" /> &lt ;value unit="MG/DL" xsi:type="PQ" value="26.0" /& gt; <interpretationCode codeSystem="local" code="H& quot; /> <referenceRange> <observationRange> <text>7-17</text> </observationRange> </referenceRange> </observation> </component& gt; <component> <observation moodCode="EVN" classCode ="OBS"> <templateId root=" 2.16.840.1.101743.10.20.22.4.2" /> <id nullFlavor="NA& quot; /> <code codeSystem="local" code="200.0400& quot; displayName="CREATININE" /> <statusCode code=& quot;completed" /><effectiveTime value="937215398553" /&gt ; <value unit="MG/DL" xsi:type="PQ" value=" 0.8" /> <interpretationCode codeSystem="local" code="N" /> <referenceRange> < observationRange> <text>0.7-1.2</text> &lt ;/observationRange> </referenceRange> </observation& gt; </component> <component> <observation moodCode="EVN" classCode="OBS"> <templateId root="2.16.840.1.426505.10.20.22.4.2" /> <id nullFlavor ="NA" /><code codeSystem="local" code="200.0450& quot; displayName="BUN/CREATININE RATIO" /> < statusCode code="completed" /> <effectiveTime value=& quot;384110705402" /> <value unit="RATIO" xsi:type ="PQ" value="33" /> <interpretationCode codeSystem="local" code="H" /> < referenceRange> <observationRange> <text> 6-26</text> </observationRange> </ referenceRange> </observation> </component> < component> <observation moodCode="EVN" classCode=" OBS"> <templateId root="2.16.840.1.948355.10.20.22.4.2& quot; /> <id nullFlavor="NA" /> <code codeSystem="local" code="200.0475" displayName=" GLOMERULAR FILTRATION RATE" /> <statusCode code="completed& quot; /> <effectiveTime value="148953081067" /> <value unit="" xsi:type="PQ" value="71" / > <interpretationCode codeSystem="local" code="N& quot; /> <referenceRange> <observationRange> <text /> </observationRange> </ referenceRange> </observation> </component> < component> <observation moodCode="EVN" classCode=" OBS"> <templateId root="2.16.840.1.251472.10.20.22.4.2& quot; /> <id nullFlavor="NA" /> <code codeSystem="local" code="200.0500"displayName="GLUCOSE& quot; /> <statusCode code="completed" /> < effectiveTime value="208214198375" /> <value unit=&quot ;MG/DL" xsi:type="PQ" value="157" /> < interpretationCode codeSystem="local" code="H" /> <referenceRange> <observationRange> < text>65-110</text> </observationRange> </ referenceRange> </observation> </component> < component> <observation moodCode="EVN" classCode=" OBS"> <templateId root="2.16.840.1.435539.10.20.22.4.2& quot; /> <id nullFlavor="NA" /> <code codeSystem ="local" code="200.0550" displayName="OSMOLALITY, CALCULATED" /> <statusCode code="completed" /> <effectiveTimevalue="421287303800" /> < value unit="MOSM/KG" xsi:type="PQ" value="290" /& gt; <interpretationCode codeSystem="local" code="H& quot; /> <referenceRange> <observationRange> <text>261-280</text> </observationRange& gt; </referenceRange> </observation> </ component> <component> <observation moodCode="EVN& quot; classCode="OBS"> <templateId root=" 2.16.840.1.901094.10.20.22.4.2" /> <id nullFlavor="NA& quot; /> <code codeSystem="local" code="200.0600& quot; displayName="CALCIUM" /> <statusCode code=" completed" /> <effectiveTime value="927287267782" /> <value unit="MG/DL" xsi:type="PQ" value=& quot;9.7" /> <interpretationCode codeSystem="local" code="N" /> <referenceRange> < observationRange> <text>8.4-10.2</text> </ observationRange> </referenceRange> </observation&gt ; </component> <component> <observation moodCode ="EVN" classCode="OBS"> <templateId root=& quot;2.16.840.1.893463.10.20.22.4.2" /> <id nullFlavor="NA& quot; /> <code codeSystem="local" code="200.0650& quot; displayName="BILIRUBIN,TOTAL" /> <statusCode code ="completed" /> <effectiveTime value="970127806812 " /> <value unit="MG/DL" xsi:type="PQ" value="0.50" /> <interpretationCode codeSystem=" local" code="N" /> <referenceRange> < observationRange> <text>0.20-1.30</text> </observationRange> </referenceRange> </ observation> </component><component> <observation moodCode="EVN" classCode="OBS"> <templateId root=& quot;2.16.840.1.860325.10.20.22.4.2" /> <id nullFlavor=&quot ;NA" /> <code codeSystem="local" code=" 200.0950" displayName="ALKALINE PHOSPHATASE" /> < statusCode code="completed" /> <effectiveTime value=&quot ;737689611266" /> <value unit="U/L" xsi:type=&quot ;PQ" value="87" /> <interpretationCode codeSystem= "local" code="N" /> <referenceRange> <observationRange> <text>38-126</text> </observationRange> </referenceRange> </ observation> </component> <component><observation moodCode="EVN" classCode="OBS"> <templateId root="2.16.840.1.324422.10.20.22.4.2" /> <id nullFlavor ="NA" /> <code codeSystem="local" code=" 200.1000" displayName="TOTAL PROTEIN" /> < statusCode code="completed" /> <effectiveTime value=& quot;233512821054" /> <value unit="G/DL" xsi:type= "PQ" value="8.0" /> <interpretationCode codeSystem="local" code="N" /> < referenceRange> <observationRange> <text> 6.3-8.2</text> </observationRange> </ referenceRange> </observation> </component> < component> <observation moodCode="EVN" classCode=" OBS"> <templateId root="2.16.840.1.107397.10.20.22.4.2& quot; /> <id nullFlavor="NA" /> <code codeSystem="local" code="200.1050" displayName="ALBUMIN " /> <statusCodecode="completed" /> & lt;effectiveTime value="429145600829" /> <value unit="G /DL" xsi:type="PQ" value="4.0" /> < interpretationCode codeSystem="local" code="N" /> <referenceRange> <observationRange> < text>3.5-5.0</text> </observationRange> </ referenceRange> </observation> </component> < component> <observation moodCode="EVN" classCode=" OBS"> <templateId root="2.16.840.1.601444.10.20.22.4.2& quot; /> <idnullFlavor="NA" /> <code codeSystem="local" code="200.1100" displayName=" GLOBULIN" /> <statusCode code="completed" /> <effectiveTime value="666106130426" /> <value unit="G/DL" xsi:type="PQ" value="4.0" /> <interpretationCode codeSystem="local" code="H" /&gt ; <referenceRange> <observationRange> <text>2.4-3.6</text> </observationRange> </referenceRange> </observation> </component> <component> <observation moodCode="EVN" classCode=& quot;OBS"> <templateId root=" 2.16.840.1.637039.10.20.22.4.2" /> <id nullFlavor="NA& quot; /> <code codeSystem="local" code="200.1150&quot ; displayName="ALBUMIN/GLOBULIN RATIO" /> <statusCode code="completed" /> <effectiveTime value=" 252484598948" /> <value unit="RATIO" xsi:type=& quot;PQ" value="1.0" /> <interpretationCode codeSystem="local" code="L" /> < referenceRange> <observationRange> <text>1.1-2.2</ text> </observationRange> </referenceRange> </observation> </component> <component> <observationmoodCode="EVN" classCode="OBS"> <templateId root="2.16.840.1.237780.10.20.22.4.2" /> <id nullFlavor="NA" /> <code codeSystem=" local" code="200.1200" displayName="AST (SGOT)" /> & lt;statusCode code="completed" /> <effectiveTime value= "123000233019" /> <value unit="U/L" xsi:type= "PQ" value="22" /> <interpretationCode codeSystem="local" code="N" /> < referenceRange> <observationRange> <text> 14-36</text> </observationRange> </ referenceRange> </observation></component> < component> <observation moodCode="EVN" classCode=" OBS"> <templateId root="2.16.840.1.257439.10.20.22.4.2& quot; /> <id nullFlavor="NA" /> <code codeSystem="local" code="200.1250" displayName="ALT ( SGPT)" /> <statusCode code="completed" /> <effectiveTime value="678094096535" /> <value unit="U/L" xsi:type="PQ" value="28" /> <interpretationCode codeSystem="local" code="N" /> <referenceRange> <observationRange> <text>9-52</text> </observationRange> </ referenceRange> </observation> </component> </ organizer> </entry> <entry> <organizer moodCode="EVN " classCode="BATTERY"> <templateId root=" 2.16.840.1.323277.10.20.22.4.1" /> <id nullFlavor="NA&quot ; /> <code codeSystem="local" code="LUADMRC" displayName="L600.0175" /> <statusCode code="completed " /> <component> <observation moodCode="EVN& quot; classCode="OBS"> <templateId root=" 2.16.840.1.943181.10.20.22.4.2" /> <id nullFlavor="NA& quot; /> <code codeSystem="local" code="600.0500& quot; displayName="SPECIMEN TYPE, URINE" /> < statusCode code="completed" /> <effectiveTime value=& quot;416536746273" /> <value unit="" xsi:type=& quot;PQ" value="STRAIGHT CATH" /> < interpretationCode codeSystem="local" code="N" /> <referenceRange> <observationRange> < text /> </observationRange> </referenceRange&gt ; </observation> </component> <component> <observation moodCode="EVN" classCode="OBS"> <templateId root="2.16.840.1.535031.10.20.22.4.2" /> <id nullFlavor="NA" /> <code codeSystem=" local" code="600.0550" displayName="COLOR,URINE" />& lt;statusCode code="completed" /> <effectiveTime value= "870822181906" /> <value unit="" xsi:type=& quot;PQ" value="YELLOW" /> <interpretationCode codeSystem="local" code="N" /> < referenceRange> <observationRange> <text> YELLOW</text> </observationRange> </ referenceRange> </observation> </component> < component> <observation moodCode="EVN" classCode=" OBS"> <templateId root="2.16.840.1.305232.10.20.22.4.2& quot; /> <id nullFlavor="NA" /> <code codeSystem="local" code="600.0600" displayName=" TURBIDITY, URINE" /> <statusCode code="completed" /> <effectiveTime value="452213105955" /> & lt;value unit="" xsi:type="PQ" value="SL CLOUDY" / > <interpretationCode codeSystem="local" code="N& quot; /> <referenceRange> <observationRange> <text>CLEAR</text> </observationRange> </referenceRange> </observation> </component&gt ; <component> <observation moodCode="EVN" classCode="OBS"> <templateId root=" 2.16.840.1.365244.10.20.22.4.2" /> <id nullFlavor="NA& quot; /> <code codeSystem="local" code="600.0650& quot; displayName="SPECIFIC GRAVITY,URINE" /> < statusCode code="completed" /> <effectiveTime value=& quot;735404047708" /> <value unit=""xsi:type=&quot ;PQ" value="1.010" /> <interpretationCode codeSystem="local" code="La" /> < referenceRange> <observationRange> <text> 1.015-1.025</text> </observationRange> </ referenceRange> </observation> </component> < component> <observation moodCode="EVN" classCode="OBS "> <templateId root="2.16.840.1.522744.10.20.22.4.2& quot; /> <id nullFlavor="NA" /> <code codeSystem="local" code="600.0700" displayName="PH, URINE - DIPSTICK" /> <statusCode code="completed" /> <effectiveTime value="217874106245" /> & lt;value unit="" xsi:type="PQ" value="6.0" /> <interpretationCode codeSystem="local" code="N" /> <referenceRange> <observationRange> <text>5.0-8.0</text> </observationRange> </referenceRange> </observation> </component& gt; <component> <observation moodCode="EVN" classCode="OBS"> <templateId root=" 2.16.840.1.919452.10..22.4.2" /> <id nullFlavor="NA& quot; /> <code codeSystem="local" code="600.0750& quot; displayName="LEUKOCYTE ESTERASE ,URINE" /> < statusCode code="completed" /> <effectiveTime value=& quot;726228354141" /> <value unit="" xsi:type=& quot;PQ" value="NEGATIVE" /> <interpretationCode codeSystem="local" code="N" /> < referenceRange> <observationRange> <text> NEGATIVE</text> </observationRange> </ referenceRange> </observation> </component> < component> <observation moodCode="EVN" classCode=" OBS"> <templateId root="2.16.840.1.675849.10.20.22.4.2& quot; /> <id nullFlavor="NA" /> <code codeSystem="local" code="600.0800" displayName="NITRITE ,URINE" /> <statusCode code="completed" /> <effectiveTime value="212073168568" /> <value unit ="" xsi:type="PQ" value="POSITIVE" /> <interpretationCode codeSystem="local" code="Aa" /> <referenceRange> <observationRange> <text>NEGATIVE</text> </observationRange> </ referenceRange> </observation> </component> < component> <observation moodCode="EVN" classCode=" OBS"> <templateId root="2.16.840.1.298904.10.20.22.4.2& quot; /> <id nullFlavor="NA" /> <code codeSystem="local" code="600.0850" displayName="PROTEIN ,URINE - DIPSTICK" /> <statusCode code="completed&quot ; /> <effectiveTime value="449109296492" /> <value unit="" xsi:type="PQ" value="NEGATIVE&quot ; /> <interpretationCode codeSystem="local" code=" N" /> <referenceRange> <observationRange> <text>NEGATIVE</text> </observationRange> </referenceRange> </observation> </component& gt;<component> <observation moodCode="EVN" classCode=& quot;OBS"> <templateId root="2.16.840.1.615914.10.20.22.4.2& quot; /> <id nullFlavor="NA" /> <code codeSystem="local" code="600.0900" displayName="GLUCOSE , URINE - DIPSTICK" /> <statusCode code="completed&quot ; /> <effectiveTime value="119301865312" /> <value unit="" xsi:type="PQ" value="NEGATIVE&quot ; /> <interpretationCode codeSystem="local" code=" N" /> <referenceRange> <observationRange&gt ; <text>NEGATIVE</text> </ observationRange> </referenceRange> </observation> </component> <component> <observation moodCode=& quot;EVN" classCode="OBS"> <templateId root=" 2.16.840.1.478145.10.20.22.4.2" /> <id nullFlavor="NA& quot; /> <code codeSystem="local" code="600.0950& quot; displayName="KETONES,URINE - DIPSTICK" /> < statusCode code="completed" /> <effectiveTime value=& quot;239767972583" /> <value unit="" xsi:type=& quot;PQ" value="NEGATIVE" /> <interpretationCode codeSystem="local" code="N" /> < referenceRange> <observationRange> <text> NEGATIVE</text> </observationRange> </ referenceRange> </observation> </component> < component> <observation moodCode="EVN" classCode=" OBS"> <templateId root="2.16.840.1.885695.10.20.22.4.2& quot; /> <id nullFlavor="NA" /> <code codeSystem="local" code="600.1000" displayName=" UROBILINOGEN,URINE" /> <statusCode code="completed&quot ; /> <effectiveTime value="535777115200" /> <value unit="EU/DL" xsi:type="PQ" value="0.2&quot ; /> <interpretationCode codeSystem="local" code=" N" /> <referenceRange> <observationRange&gt ; <text>NORMAL</text> </observationRange& gt; </referenceRange> </observation> </ component> <component> <observation moodCode="EVN& quot; classCode="OBS"> <templateId root=" 2.16.840.1.935345.10.20.22.4.2" /> <id nullFlavor="NA& quot; /> <code codeSystem="local" code="600.1050& quot; displayName="BILIRUBIN,URINE - DIPSTICK" /> <statusCode code="completed" /> <effectiveTime value=" 591738511511" /> <value unit="" xsi:type="PQ& quot; value="NEGATIVE" /> <interpretationCode codeSystem="local" code="N" /> <referenceRange> <observationRange> <text>NEGATIVE</text&gt ; </observationRange> </referenceRange> & lt;/observation> </component> <component> < observation moodCode="EVN" classCode="OBS"> < templateId root="2.16.840.1.114796.10.20.22.4.2" /> < id nullFlavor="NA" /> <code codeSystem="local&quot ; code="600.1100" displayName="BLOOD, URINE" /> <statusCode code="completed" /> <effectiveTime value ="059048581894" /> <value unit="" xsi:type=& quot;PQ" value="TRACE-INTACT" /> < interpretationCode codeSystem="local" code="Aa" /> <referenceRange> <observationRange> < text>NEGATIVE</text> </observationRange> < /referenceRange> </observation> </component> &lt ;component> <observation moodCode="EVN" classCode=" OBS"> <templateId root="2.16.840.1.275376.10.20.22.4.2& quot; /> <id nullFlavor="NA" /> <code codeSystem="local" code="600.1200" displayName="WBC, URINE" /> <statusCode code="completed" /> <effectiveTime value="024547912688" /> <value unit=& quot;/HPF" xsi:type="PQ" value="10-20" /> & lt;interpretationCode codeSystem="local" code="Doran" /> <referenceRange> <observationRange> & lt;text>0-5</text> </observationRange> </ referenceRange> </observation> </component> < component><observation moodCode="EVN" classCode="OBS"& gt; <templateId root="2.16.840.1.195322.10.20.22.4.2" /&gt ; <id nullFlavor="NA" /> <code codeSystem=" local" code="600.1250" displayName="RBC,URINE" /> <statusCode code="completed" /> < effectiveTime value="933374395776" /> <value unit=&quot ;/HPF" xsi:type="PQ" value="0-1" /> < interpretationCode codeSystem="local" code="N" /> <referenceRange> <observationRange> < text>0-3</text> </observationRange> </ referenceRange> </observation> </component> < component> <observation moodCode="EVN" classCode=" OBS"> <templateId root="2.16.840.1.102557.10.20.22.4.2& quot; /> <id nullFlavor="NA" /> <code codeSystem="local" code="600.1450" displayName=" BACTERIA,URINE" /> <statusCode code="completed" /& gt; <effectiveTime value="056918321816" /> < value unit="" xsi:type="PQ" value="3+" /> <interpretationCode codeSystem="local" code="Doran" /& gt; <referenceRange> <observationRange> <text>NEGATIVE</text> </observationRange> </referenceRange> </observation> </component&gt ; <component> <observation moodCode="EVN" classCode="OBS"> <templateId root=" 2.16.840.1.647490.10.20.22.4.2" /> <id nullFlavor="NA& quot; /> <code codeSystem="local" code="600.2400& quot;displayName="CULTURE SET UP,URINE" /> <statusCode code="completed" /> <effectiveTime value=" 212777128764" /> <value unit="" xsi:type="PQ& quot; value="CULT REFLEXED &SETUP" /> < interpretationCode codeSystem="local" code="N" /> <referenceRange> <observationRange> < text /> </observationRange> </referenceRange> </observation> </component> </organizer> < /entry> <entry> <organizer moodCode="EVN" classCode=& quot;BATTERY"> <templateId root=" 2.16.840.1.712101.10.20.22.4.1" /> <id nullFlavor="NA&quot ; /> <code codeSystem="local" code="MCUURINE" displayName="M153.0000" /> <statusCode code="completed " /> <component> <observation moodCode="EVN& quot; classCode="OBS"> <templateId root=" 2.16.840.1.477773.10.20.22.4.2" /> <id nullFlavor="NA& quot; /> <code codeSystem="local" code="307.0000& quot; displayName="URINE CULTURE." /> <statusCode code= "completed" /> <effectiveTime value="734522583043& quot; /> <value unit="CFU/ml" xsi:type="PQ" value=" " /> <interpretationCode codeSystem="local " code="R" /> <referenceRange> < observationRange> <text /> </observationRange> </referenceRange> </observation> </ component> </organizer> </entry> <entry> < organizer moodCode="EVN" classCode="BATTERY"> < templateId root="2.16.840.1.010801.10.20.22.4.1" /> <id nullFlavor="NA" /> <code codeSystem="local" code= "LBGM" displayName="L900.0530" /> <statusCode code="completed" /> <component> <observation moodCode="EVN" classCode="OBS"> <templateId root="2.16.840.1.277006.10.20.22.4.2" /> <id nullFlavor ="NA" /> <code codeSystem="local" code=" 900.0530" displayName="GLUCOMETER" /> <statusCode code="completed" /> <effectiveTime value=" 859157927774" /> <value unit="mg/dL" xsi:type=& quot;PQ" value="117" /> <interpretationCode codeSystem=& quot;local" code="H" /> <referenceRange> <observationRange> <text>65-110</text> & lt;/observationRange> </referenceRange> </ observation> </component> </organizer> </entry> & lt;entry> <organizer moodCode="EVN" classCode="BATTERY& quot;> <templateId root="2.16.840.1.786852.10.20.22.4.1" /& gt; <id nullFlavor="NA" /> <code codeSystem=" local"code="LCBC" displayName="L100.0050" /> & lt;statusCode code="completed" /> <component> &lt ;observation moodCode="EVN" classCode="OBS"> &lt ;templateId root="2.16.840.1.318137.10.20.22.4.2" /><id nullFlavor="NA" /> <code codeSystem="local" code="100.0150" displayName="WBC - WHITE BLOOD COUNT" /> <statusCode code="completed" /> < effectiveTime value="654173620253" /> <value unit=&quot ;T/MM3" xsi:type="PQ" value="7.9" /> < interpretationCode codeSystem="local" code="N" /> <referenceRange> <observationRange> <text> 4.5-11.0</text> </observationRange> </ referenceRange> </observation> </component> < component> <observation moodCode="EVN" classCode=" OBS"> <templateId root="2.16.840.1.731944.10.20.22.4.2&quot ; /> <id nullFlavor="NA" /> <code codeSystem="local" code="100.0250" displayName="RED BLOOD COUNT" /> <statusCode code="completed" /&gt ; <effectiveTime value="795551182203" /> <value unit="M/MM3" xsi:type="PQ" value="3.64" /> <interpretationCode codeSystem="local" code="L" /& gt; <referenceRange> <observationRange> <text>4.00-5.20</text> </observationRange> </referenceRange> </observation> </component& gt; <component> <observation moodCode="EVN" classCode ="OBS"> <templateId root=" 2.16.840.1.735259.10.20.22.4.2" /> <id nullFlavor="NA& quot; /> <code codeSystem="local" code="100.0300& quot; displayName="HGB - HEMOGLOBIN" /> <statusCode code="completed" /> <effectiveTime value=" 679213666402" /> <value unit="GM/DL" xsi:type=& quot;PQ" value="9.9" /> <interpretationCode codeSystem="local" code="L" /> < referenceRange> <observationRange> <text> 12-16</text> </observationRange> </ referenceRange> </observation> </component> < component> <observation moodCode="EVN" classCode=" OBS"> <templateId root="2.16.840.1.166178.10.20.22.4.2& quot; /> <id nullFlavor="NA" /> <code codeSystem="local" code="100.0400" displayName="HCT - HEMATOCRIT" /><statusCode code="completed" /> & lt;effectiveTime value="543038425507" /> <value unit=& quot;%" xsi:type="PQ" value="31.9" /> <interpretationCode codeSystem="local" code="L" /&gt ; <referenceRange> <observationRange> < text>36-46</text> </observationRange> </ referenceRange> </observation> </component> < component> <observation moodCode="EVN" classCode=" OBS"> <templateId root="2.16.840.1.784332.10.20.22.4.2& quot; /> <id nullFlavor="NA" /> <code codeSystem="local" code="100.0550" displayName="MEAN CORPUSCULAR VOLUME" /> <statusCodecode="completed&quot ; /> <effectiveTime value="916297910236" /> < value unit="UM3" xsi:type="PQ" value="87.6" /> <interpretationCode codeSystem="local" code="N&quot ; /> <referenceRange> <observationRange> <text>80-100</text> </observationRange> </referenceRange> </observation> </component > <component> <observation moodCode="EVN" classCode="OBS"> <templateId root=" 2.16.840.1.148990.10.20.22.4.2" /> <id nullFlavor="NA& quot; /> <code codeSystem="local" code="100.0600& quot; displayName="MEAN CORPUSCULAR HGB" /> < statusCode code="completed" /> <effectiveTime value=& quot;441638301823" /> <value unit="UUG" xsi:type=& quot;PQ" value="27.2" /> <interpretationCode codeSystem="local" code="N" /> < referenceRange> <observationRange> <text> 26-34</text> </observationRange> </ referenceRange> </observation> </component> < component> <observation moodCode="EVN" classCode=" OBS"> <templateId root="2.16.840.1.926436.10.20.22.4.2& quot; /> <id nullFlavor="NA" /> <code codeSystem="local" code="100.0650" displayName="MEAN CORPUSCULAR HGB CONC([facility]" /> <statusCode code=" completed" /> <effectiveTime value="306214790358" /&gt ; <value unit="GM/DL" xsi:type="PQ" value=" 31.0" /> <interpretationCode codeSystem="local" code="N" /> <referenceRange> < observationRange> <text>31-37</text> < /observationRange> </referenceRange> </observation& gt; </component> <component><observation moodCode=&quot ;EVN" classCode="OBS"> <templateId root=" 2.16.840.1.344870.10.20.22.4.2" /> <id nullFlavor="NA& quot; /> <code codeSystem="local" code="100.0750" displayName="RDW STANDARD DEVIATION" /> <statusCode code="completed" /> <effectiveTime value=" 149226479397" /> <value unit="FL" xsi:type=" PQ" value="49.0" /> <interpretationCode codeSystem ="local" code="N" /> <referenceRange> <observationRange> <text>36.9-50.2</text&gt ; </observationRange> </referenceRange> & lt;/observation> </component> <component> < observation moodCode="EVN" classCode="OBS"> < templateId root="2.16.840.1.179305.10.20.22.4.2" /> < id nullFlavor="NA" /> <code codeSystem="local&quot ; code="100.0850" displayName="PLT - PLATELET COUNT" /> <statusCode code="completed" /> < effectiveTime value="975823714646" /> <value unit=&quot ;T/MM3" xsi:type="PQ" value="259" /> < interpretationCode codeSystem="local" code="N" /> & lt;referenceRange> <observationRange> <text& gt;130-400</text> </observationRange> </ referenceRange> </observation> </component> < component> <observation moodCode="EVN" classCode=" OBS"> <templateId root="2.16.840.1.887461.10.20.22.4.2& quot; /> <id nullFlavor="NA" /> <code codeSystem="local" code="100.0950" displayName="MEAN PLATELET VOLUME" /> <statusCode code="completed" / > <effectiveTime value="383118452923" /> < value unit="UM3" xsi:type="PQ" value="9.8" /> <interpretationCode codeSystem="local" code="N" /> <referenceRange> <observationRange> <text>9.4-12.4</text> </observationRange> </referenceRange> </observation> </component > <component> <observation moodCode="EVN" classCode="OBS"> <templateId root=" 2.16.840.1.906359.10.20.22.4.2" /> <id nullFlavor="NA& quot; /> <code codeSystem="local" code="100.1050& quot; displayName="NEUTROPHILS % (AUTO)" /> < statusCode code="completed" /> <effectiveTime value=& quot;393362439178" /> <value unit="%" xsi: type="PQ" value="68.7" /> < interpretationCode codeSystem="local" code="H" /> <referenceRange> <observationRange> < text>33-66</text> </observationRange> </ referenceRange> </observation> </component> < component> <observation moodCode="EVN" classCode=" OBS"> <templateId root="2.16.840.1.052935.10.20.22.4.2& quot; /> <id nullFlavor="NA" /> <code codeSystem="local" code="100.1100" displayName=" LYMPHOCYTES % (AUTO)" /> <statusCode code=" completed" /> <effectiveTime value="556236328885" /> <value unit="%" xsi:type="PQ" value="21.1" /> <interpretationCode codeSystem=" local" code="L" /> <referenceRange>< observationRange> <text>23-45</text> < /observationRange> </referenceRange> </observation& gt; </component> <component> <observation moodCode="EVN" classCode="OBS"> <templateId root="2.16.840.1.193477.10.20.22.4.2" /> <id nullFlavor ="NA" /> <code codeSystem="local" code=" 100.1150" displayName="MONOCYTES % (AUTO)" /> <statusCode code="completed" /> <effectiveTime value ="650794854057" /> <value unit="%" xsi:type="PQ" value="7.1" /> < interpretationCode codeSystem="local" code="N" /> <referenceRange> <observationRange> < text>0-9.0</text> </observationRange> </ referenceRange> </observation> </component> < component> <observation moodCode="EVN" classCode="OBS& quot;> <templateIdroot="2.16.840.1.683471.10.20.22.4.2&quot ; /> <id nullFlavor="NA" /> <code codeSystem="local" code="100.1200" displayName=" EOSINOPHILS % (AUTO)" /> <statusCode code=" completed" /> <effectiveTime value="078596200728" /> <value unit="%" xsi:type="PQ" value="2.4" /> <interpretationCode codeSystem=" local" code="N" /> <referenceRange> <observationRange> <text>0-4</text> & lt;/observationRange> </referenceRange> </ observation> </component> <component> < observation moodCode="EVN" classCode="OBS"> < templateId root="2.16.840.1.247663.10.20.22.4.2" /> < id nullFlavor="NA" /> <code codeSystem="local&quot ; code="100.1250" displayName="BASOPHILS % (AUTO)" / > <statusCode code="completed" /> < effectiveTimevalue="086969682118" /> <value unit=" %" xsi:type="PQ" value="0.4" /> &lt ;interpretationCode codeSystem="local" code="N" /> <referenceRange> <observationRange> < text>0-2</text> </observationRange> </ referenceRange> </observation> </component> < component> <observation moodCode="EVN" classCode=" OBS"> <templateId root="2.16.840.1.153831.10.20.22.4.2& quot; /> <id nullFlavor="NA" /> <code codeSystem="local" code="100.1275" displayName=" IMMATURE GRANULOCYTE % (AUTO)" /> <statusCode code=& quot;completed" /> <effectiveTime value="182751287437& quot; /> <value unit="%" xsi:type="PQ&quot ; value="0.3" /> <interpretationCode codeSystem=" local" code="N" /> <referenceRange> <observationRange> <text>0.0-0.5</text> </observationRange> </referenceRange> </ observation> </component> <component> < observation moodCode="EVN" classCode="OBS"> < templateId root="2.16.840.1.002677.10.20.22.4.2" /> < id nullFlavor="NA" /> <code codeSystem="local&quot ; code="100.1300" displayName="NEUTROPHILS # (AUTO)" /> <statusCode code="completed" /> <effectiveTime value="579506880648" /> <value unit="T/MM3" xsi:type="PQ" value="5.4" /> < interpretationCode codeSystem="local" code="N" /> < referenceRange> <observationRange> <text> 1.8-7.7</text> </observationRange> </ referenceRange> </observation> </component> < component> <observation moodCode="EVN" classCode=" OBS"> <templateId root="2.16.840.1.460248.10.20.22.4.2& quot; /> <id nullFlavor="NA" /> <code codeSystem="local" code="100.1350" displayName=" LYMPHOCYTES # (AUTO)" /> <statusCode code="completed& quot; /> <effectiveTime value="313008255536" /> & lt;value unit="T/MM3" xsi:type="PQ" value="1.7" /& gt; <interpretationCode codeSystem="local" code="N& quot; /> <referenceRange> <observationRange> <text>1-4.8</text> </observationRange&gt ; </referenceRange> </observation> </ component> <component> <observation moodCode="EVN& quot; classCode="OBS"> <templateId root=" 2.16.840.1.065488.10.20.22.4.2" /> <id nullFlavor="NA& quot; /> <code codeSystem="local" code="100.1400& quot; displayName="MONOCYTES # (AUTO)" /> <statusCode code="completed" /> <effectiveTime value=" 597466038932" /> <value unit="T/MM3" xsi:type=& quot;PQ" value="0.6" /> <interpretationCode codeSystem="local" code="N" /> < referenceRange> <observationRange> <text> 0-0.8</text> </observationRange> </referenceRange& gt; </observation> </component> <component> <observation moodCode="EVN" classCode="OBS"> <templateId root="2.16.840.1.360999.10.20.22.4.2" /> <id nullFlavor="NA" /> <code codeSystem=&quot ;local" code="100.1450" displayName="EOSINOPHILS # (AUTO)& quot; /> <statusCode code="completed" /> & lt;effectiveTime value="947560184367" /> <value unit=& quot;T/MM3" xsi:type="PQ" value="0.2" /> & lt;interpretationCode codeSystem="local" code="N" /> <referenceRange> <observationRange> <text& gt;0-0.5</text> </observationRange> </ referenceRange> </observation> </component> < component> <observation moodCode="EVN" classCode=" OBS"> <templateId root="2.16.840.1.714485.10.20.22.4.2& quot; /> <id nullFlavor="NA" /> < codecodeSystem="local" code="100.1500" displayName=" BASOPHILS # (AUTO)" /> <statusCode code="completed&quot ; /> <effectiveTime value="037516146512" /> <value unit="T/MM3" xsi:type="PQ" value="0.0&quot ; /> <interpretationCode codeSystem="local" code=" N" /> <referenceRange> <observationRange&gt ; <text>0-0.2</text> </observationRange& gt; </referenceRange> </observation> </ component> <component> <observation moodCode="EVN& quot; classCode="OBS"> <templateId root=" 2.16.840.1.401248.10.20.22.4.2" /> <id nullFlavor="NA& quot; /> <code codeSystem="local" code="100.1525& quot; displayName="IMMATURE GRANULOCYTE # (AUTO)" /> < statusCode code="completed" /> <effectiveTime value=& quot;749328571709" /> <value unit="T/MM3" xsi:type ="PQ" value="0.02" /> <interpretationCode codeSystem="local" code="N" /> < referenceRange> <observationRange> <text> 0.00-0.03</text> </observationRange> </ referenceRange> </observation> </component> </ organizer> </entry> <entry> <organizer moodCode="EVN " classCode="BATTERY"> <templateId root=" 2.16.840.1.914696.10.20.22.4.1" /> <id nullFlavor="NA&quot ; /> <code codeSystem="local" code="LCMP" displayName="L200.0020" /> <statusCode code="completed " /> <component> <observation moodCode="EVN& quot; classCode="OBS"> <templateId root=" 2.16.840.1.907101.10.20.22.4.2" /> <id nullFlavor="NA& quot; /> <code codeSystem="local" code="200.0097& quot; displayName="ICTERUS" /> <statusCode code=" completed" /> <effectiveTime value="927862774834" /> <value unit="" xsi:type="PQ" value="& amp;lt; 2" /> <interpretationCode codeSystem="local& quot; code="N" /> <referenceRange> < observationRange> <text>0-7</text> </ observationRange> </referenceRange> </observation&gt ; </component> <component> <observation moodCode ="EVN" classCode="OBS"> <templateId root=& quot;2.16.840.1.384217.10.20.22.4.2" /> <id nullFlavor=&quot ;NA" /> <code codeSystem="local" code=" 200.0098" displayName="HEMOLYSIS" /> <statusCode code="completed" /> <effectiveTime value=" 246826524105" /> <value unit="" xsi:type="PQ& quot; value="< 15" /> <interpretationCode codeSystem="local" code="N" /> < referenceRange> <observationRange> <text>0-25&lt ;/text> </observationRange> </referenceRange&gt ; </observation> </component> <component> <observation moodCode="EVN" classCode="OBS"> <templateId root="2.16.840.1.556497.10.20.22.4.2" /> <id nullFlavor="NA" /> <codecodeSystem=" local" code="200.0099" displayName="TURBIDITY" /> <statusCode code="completed" /> <effectiveTime value ="651750216594" /> <value unit="" xsi:type=& quot;PQ" value="< 20" /> < interpretationCode codeSystem="local" code="N" /> < referenceRange> <observationRange> <text> 0-20</text> </observationRange> </ referenceRange> </observation> </component> < component> <observation moodCode="EVN" classCode=" OBS"> <templateId root="2.16.840.1.960388.10.20.22.4.2& quot; /> <id nullFlavor="NA" /> <code codeSystem="local" code="200.0100" displayName="SODIUM& quot; /> <statusCode code="completed" /> & lt;effectiveTime value="415682528491" /> <value unit=& quot;MEQ/L" xsi:type="PQ" value="149" /> & lt;interpretationCode codeSystem="local" code="H" /> <referenceRange><observationRange> <text> 134-144</text> </observationRange> </ referenceRange> </observation> </component> < component> <observation moodCode="EVN" classCode=" OBS"><templateId root="2.16.840.1.181096.10.20.22.4.2" /&gt ; <id nullFlavor="NA" /> <code codeSystem=& quot;local" code="200.0150" displayName="POTASSIUM" /& gt; <statusCode code="completed" /> < effectiveTime value="108114015935" /> <value unit=&quot ;MEQ/L" xsi:type="PQ" value="4.2" /> < interpretationCode codeSystem="local" code="N" /> <referenceRange> <observationRange> <text> 3.6-5</text> </observationRange> </ referenceRange> </observation> </component> < component> <observation moodCode="EVN" classCode=" OBS"> <templateId root="2.16.840.1.686505.10.20.22.4.2& quot; /> <id nullFlavor="NA" /> < codecodeSystem="local" code="200.0200" displayName=" CHLORIDE" /> <statusCode code="completed" /> & lt;effectiveTime value="969596532845" /> <value unit=& quot;MEQ/L" xsi:type="PQ" value="109"/> &lt ;interpretationCode codeSystem="local" code="H" />< referenceRange> <observationRange> <text> 98-107</text> </observationRange> </ referenceRange> </observation> </component> < component> <observation moodCode="EVN" classCode=" OBS"> <templateId root="2.16.840.1.160054.10..22.4.2& quot; /> <id nullFlavor="NA" /> <code codeSystem="local" code="200.0250" displayName="CO2 - CARBON DIOXIDE" /> <statusCode code="completed" /& gt; <effectiveTime value="757666869399" /><value unit="MEQ/L" xsi:type="PQ" value="30" /> <interpretationCode codeSystem="local" code="N" /&gt ; <referenceRange> <observationRange> <text>22-30</text> </observationRange> </referenceRange> </observation> </component> <component> <observation moodCode="EVN" classCode=& quot;OBS"> <templateId root=" 2.16.840.1.864364.10.20.22.4.2" /> <id nullFlavor="NA& quot; /> <code codeSystem="local" code="200.0300& quot; displayName="ANION GAP" /> <statusCode code=&quot ;completed" /> <effectiveTime value="758302753592" /> <value unit="MEQ/L" xsi:type="PQ" value="10 " /> <interpretationCode codeSystem="local" code=& quot;N" /> <referenceRange> < observationRange> <text>5-15</text> </ observationRange> </referenceRange> </observation&gt ; </component> <component> <observation moodCode ="EVN" classCode="OBS"> <templateId root=& quot;2.16.840.1.796057.10.20.22.4.2" /> <id nullFlavor=&quot ;NA" /> <code codeSystem="local" code=" 200.0350" displayName="BLOOD UREA NITROGEN" /> < statusCode code="completed" /> <effectiveTime value=& quot;739742837898" /> <value unit="MG/DL" xsi:type ="PQ" value="23.0" /> <interpretationCode codeSystem="local" code="H" /> < referenceRange> <observationRange> <text> 7-17</text> </observationRange> </ referenceRange> </observation> </component> < component> <observation moodCode="EVN" classCode=" OBS"> <templateId root="2.16.840.1.824778.10.20.22.4.2& quot; /> <id nullFlavor="NA" /> <code codeSystem="local" code="200.0400" displayName=" CREATININE" /> <statusCode code="completed" /> <effectiveTime value="380425555537" /> < value unit="MG/DL" xsi:type="PQ" value="0.8" /> <interpretationCode codeSystem="local" code="N" /> <referenceRange> <observationRange> & lt;text>0.7-1.2</text></observationRange> </ referenceRange> </observation> </component> < component> <observation moodCode="EVN" classCode=" OBS"> <templateId root="2.16.840.1.917348.10.20.22.4.2& quot; /> <id nullFlavor="NA" /> <code codeSystem="local" code="200.0450" displayName="BUN/ CREATININE RATIO" /> <statusCode code="completed" /> <effectiveTime value="172518536003" /> & lt;value unit="RATIO" xsi:type="PQ" value="29" /& gt; <interpretationCode codeSystem="local" code="H& quot; /> <referenceRange> <observationRange> <text>6-26</text> </observationRange&gt ; </referenceRange> </observation> </ component> <component> <observation moodCode="EVN& quot; classCode="OBS"> <templateId root=" 2.16.840.1.944381.10.20.22.4.2" /> <id nullFlavor="NA& quot; /> <code codeSystem="local" code="200.0475& quot; displayName="GLOMERULAR FILTRATION RATE" /> < statusCode code="completed" /> <effectiveTime value=" 373809014052" /> <value unit="" xsi:type="PQ& quot; value="71" /> <interpretationCode codeSystem=& quot;local" code="N" /> <referenceRange> <observationRange> <text /> </ observationRange> </referenceRange> </observation> </component> <component> <observation moodCode=& quot;EVN" classCode="OBS"> <templateId root=" 2.16.840.1.713084.10.20.22.4.2" /> <id nullFlavor="NA& quot; /> <code codeSystem="local" code="200.0500& quot; displayName="GLUCOSE" /> <statusCode code=" completed" /> <effectiveTime value="776683237053" /> <value unit="MG/DL" xsi:type="PQ" value=& quot;113" /> <interpretationCode codeSystem="local" code= "H" /> <referenceRange> < observationRange> <text>65-110</text> </ observationRange> </referenceRange> </observation&gt ; </component> <component> <observation moodCode ="EVN" classCode="OBS"> <templateId root=& quot;2.16.840.1.605447.10.20.22.4.2" /> <id nullFlavor=&quot ;NA" /> <code codeSystem="local" code=" 200.0550" displayName="OSMOLALITY,CALCULATED" /> < statusCode code="completed" /> <effectiveTime value=& quot;065166258079" /> <value unit="MOSM/KG" xsi: type="PQ" value="291" /> <interpretationCode codeSystem="local" code="H" /> < referenceRange> <observationRange> <text>261-280& lt;/text> </observationRange> </referenceRange& gt; </observation> </component> <component> <observation moodCode="EVN" classCode="OBS"> <templateId root="2.16.840.1.500354.10.20.22.4.2" /> & lt;id nullFlavor="NA" /> <code codeSystem="local& quot; code="200.0600" displayName="CALCIUM" /> & lt;statusCode code="completed" /> <effectiveTime value= "495454395248" /> <value unit="MG/DL" xsi: type="PQ" value="9.2" /> <interpretationCode codeSystem="local" code="N" /> < referenceRange> <observationRange> <text>8.4- 10.2</text> </observationRange> </ referenceRange> </observation> </component> < component> <observation moodCode="EVN" classCode=" OBS"> <templateId root="2.16.840.1.052140.10.20.22.4.2& quot; /> <id nullFlavor="NA" /> <code codeSystem="local" code="200.0650" displayName=" BILIRUBIN,TOTAL" /> <statusCode code="completed" / > <effectiveTime value="719473913981" /> & lt;value unit="MG/DL" xsi:type="PQ" value="0.40" / > <interpretationCode codeSystem="local" code="N& quot; /> <referenceRange> <observationRange> <text>0.20-1.30</text> </ observationRange> </referenceRange> </observation&gt ; </component> <component> <observation moodCode ="EVN" classCode="OBS"> <templateId root=& quot;2.16.840.1.828816.10.20.22.4.2" /> <id nullFlavor=&quot ;NA" /> <code codeSystem="local" code=" 200.0950" displayName="ALKALINE PHOSPHATASE" /> < statusCode code="completed" /> <effectiveTime value=& quot;355376922802"/> <value unit="U/L" xsi:type=& quot;PQ" value="74" /> <interpretationCode codeSystem=& quot;local" code="N" /> <referenceRange> <observationRange> <text>38-126</text> & lt;/observationRange> </referenceRange> </ observation> </component> <component> < observation moodCode="EVN" classCode="OBS"> < templateId root="2.16.840.1.107203.10.20.22.4.2" /><id nullFlavor="NA" /> <code codeSystem="local" code="200.1000" displayName="TOTAL PROTEIN" /> & lt;statusCode code="completed" /> <effectiveTime value= "818443055491" /> <value unit="G/DL" xsi:type ="PQ" value="7.0" /> <interpretationCode codeSystem="local" code="N" /> < referenceRange> <observationRange> <text> 6.3-8.2</text> </observationRange> </ referenceRange> </observation> </component> < component> <observation moodCode="EVN" classCode=" OBS"> <templateId root="2.16.840.1.371289.10.20.22.4.2& quot; /> <id nullFlavor="NA" /> <code codeSystem="local" code="200.1050" displayName="ALBUMIN " /> <statusCode code="completed" /> & lt;effectiveTime value="587780374601" /> <value unit=& quot;G/DL" xsi:type="PQ" value="3.5" /> &lt ;interpretationCode codeSystem="local" code="N" /> <referenceRange> <observationRange> < text>3.5-5.0</text> </observationRange> </ referenceRange> </observation> </component> < component> <observation moodCode="EVN" classCode=" OBS"> <templateId root="2.16.840.1.491908.10.20.22.4.2& quot; /> <id nullFlavor="NA" /> <code codeSystem="local" code="200.1100" displayName=" GLOBULIN" /> <statusCode code="completed" /> <effectiveTime value="419961891628"/> < value unit="G/DL" xsi:type="PQ" value="3.5" /> <interpretationCode codeSystem="local" code="N" /& gt; <referenceRange> <observationRange> <text>2.4-3.6</text> </observationRange> </referenceRange> </observation> </component> <component> <observation moodCode="EVN" classCode=& quot;OBS"> <templateId root=" 2.16.840.1.027409.10.20.22.4.2" /> <id nullFlavor="NA" /& gt; <code codeSystem="local" code="200.1150" displayName="ALBUMIN/GLOBULIN RATIO" /> <statusCode code="completed" /> <effectiveTime value=" 751332867818" /> <value unit="RATIO" xsi:type=& quot;PQ" value="1.0" /> <interpretationCode codeSystem="local" code="L" /> < referenceRange> <observationRange> <text>1.1- 2.2</text> </observationRange> </ referenceRange> </observation> </component> < component> <observation moodCode="EVN" classCode=" OBS"> <templateId root="2.16.840.1.215347.10.20.22.4.2& quot; /> <id nullFlavor="NA" /> <code codeSystem="local" code="200.1200" displayName="AST ( SGOT)" /> <statusCode code="completed" /> < effectiveTime value="098452208747" /> <value unit=&quot ;U/L" xsi:type="PQ" value="22" /> < interpretationCode codeSystem="local" code="N" /> <referenceRange> <observationRange> <text >14-36</text> </observationRange> </ referenceRange> </observation> </component> < component> <observation moodCode="EVN" classCode=" OBS"> <templateId root="2.16.840.1.390731.10.20.22.4.2& quot; /> <id nullFlavor="NA" /> <code codeSystem="local" code="200.1250" displayName="ALT ( SGPT)" /> <statusCode code="completed" /> <effectiveTime value="199088662095" /> <value unit="U/L" xsi:type="PQ" value="30" /> <interpretationCode codeSystem="local" code="N" /> <referenceRange> <observationRange> < text>9-52</text> </observationRange> </ referenceRange> </observation> </component> </ organizer> </entry> <entry> <organizer moodCode="EVN " classCode="BATTERY"> <templateId root=" [id number]" /> <id nullFlavor="NA&quot ; /> <code codeSystem="local" code="LMAG" displayName="L200.2000" /> <statusCode code="completed " /> <component> <observation moodCode="EVN& quot; classCode="OBS"> <templateId root=" 2.16.840.1.554159.10.20.22.4.2" /> <id nullFlavor="NA& quot; /> <code codeSystem="local" code="200.2000& quot; displayName="MAGNESIUM" /> <statusCode code=&quot ;completed" /> <effectiveTime value="457900801470&quot ; /> <value unit="MG/DL" xsi:type="PQ" value= "2.0" /> <interpretationCode codeSystem="local& quot; code="N" /> <referenceRange> < observationRange> <text>1.6-2.3</text> & lt;/observationRange> </referenceRange> </ observation> </component> </organizer> </entry> & lt;entry> <organizer moodCode="EVN" classCode="BATTERY& quot;> <templateId root="2.16.840.1.796598.10.20.22.4.1" /& gt; <id nullFlavor="NA" /> <code codeSystem="local& quot; code="LLACTATE" displayName="L200.2066" /> &lt ;statusCode code="completed" /> <component> < observation moodCode="EVN" classCode="OBS"> < templateId root="2.16.840.1.017273.10.20.22.4.2" /> < id nullFlavor="NA" /> <code codeSystem="local&quot ; code="200.2066" displayName="LACTATE - LACTIC ACID, VENOUS&quot ; /> <statusCode code="completed" /> < effectiveTime value="298299274074" /> <value unit=&quot ;MMOL/L" xsi:type="PQ" value="1.2" /> < interpretationCode codeSystem="local" code="N" /> <referenceRange> <observationRange> < text>0.6-2.2</text> </observationRange> </ referenceRange> </observation> </component> </ organizer> </entry> <entry> <organizer moodCode="EVN " classCode="BATTERY"> <templateId root=" 2.16.840.1.370403.10.20.22.4.1" /> <id nullFlavor="NA&quot ; /> <code codeSystem="local" code="LBGM" displayName="L900.0530" /> <statusCode code="completed " /> <component> <observation moodCode="EVN& quot; classCode="OBS"> <templateId root=" 2.16.840.1.387577.10.20.22.4.2" /> <id nullFlavor="NA& quot; /> <code codeSystem="local" code="900.0530& quot; displayName="GLUCOMETER" /> <statusCode code=& quot;completed" /> <effectiveTime value="332395600955& quot; /> <value unit="mg/dL" xsi:type="PQ" value="106" /> <interpretationCode codeSystem=" local" code="N" /> <referenceRange> <observationRange> <text>65-110</text> </ observationRange> </referenceRange> </observation&gt ; </component> </organizer> </entry> <entry> <organizer moodCode="EVN" classCode="BATTERY"> <templateId root="2.16.840.1.098004.10.20.22.4.1" /> < id nullFlavor="NA" /> <code codeSystem="local" code="LBGM" displayName="L900.0530" /> < statusCode code="completed" /> <component> < observation moodCode="EVN" classCode="OBS"> < templateId root="2.16.840.1.850475.10.20.22.4.2" /> < id nullFlavor="NA" /> <code codeSystem="local&quot ; code="900.0530" displayName="GLUCOMETER" /> < statusCode code="completed" /> <effectiveTime value=& quot;304568315474" /> <value unit="mg/dL" xsi:type ="PQ" value="88" /> <interpretationCode codeSystem="local" code="N" /> <referenceRange> <observationRange> <text>65-110</text&gt ; </observationRange> </referenceRange> & lt;/observation> </component> </organizer> </entry&gt ; <entry> <organizer moodCode="EVN" classCode=" BATTERY"> <templateId root="2.16.840.1.586279.10.20.22.4.1& quot; /> <id nullFlavor="NA" /> <code codeSystem ="local" code="LBGM" displayName="L900.0530" /&gt ; <statusCode code="completed" /> <component> <observation moodCode="EVN" classCode="OBS"> <templateId root="2.16.840.1.319776.10.20.22.4.2" /> <id nullFlavor="NA" /> <code codeSystem=" local" code="900.0530" displayName="GLUCOMETER" /> <statusCode code="completed" /> < effectiveTime value="789118836123" /> <value unit=&quot ;mg/dL" xsi:type="PQ" value="80" /> < interpretationCode codeSystem="local" code="N" /> <referenceRange> <observationRange> <text> 65-110</text> </observationRange> </ referenceRange> </observation> </component> </ organizer> </entry> <entry> <organizer moodCode="EVN " classCode="BATTERY"> <templateId root=" 2.16.840.1.119604.10.20.22.4.1" /> <id nullFlavor="NA" /&gt ; <code codeSystem="local" code="LBGM" displayName=& quot;L900.0530" /> <statusCode code="completed" /> <component> <observation moodCode="EVN" classCode=& quot;OBS"> <templateId root="2.16.840.1.251715.10.20.22.4.2& quot; /> <id nullFlavor="NA" /> <code codeSystem="local" code="900.0530" displayName=" GLUCOMETER" /> <statusCode code="completed" /> <effectiveTime value="198051737293" /> < value unit="mg/dL" xsi:type="PQ" value="97" /> <interpretationCode codeSystem="local" code="N&quot ; /> <referenceRange> <observationRange> <text>65-110</text> </observationRange> </referenceRange> </observation> </component&gt ; </organizer> </entry> <entry> <organizer moodCode ="EVN" classCode="BATTERY"> <templateId root=& quot;2.16.840.1.765738.10.20.22.4.1" /> <id nullFlavor="NA& quot; /> <code codeSystem="local" code="LBGM" displayName="L900.0530" /> <statusCode code="completed " /> <component> <observation moodCode="EVN& quot; classCode="OBS"> <templateId root=" 2.16.840.1.374506.10.20.22.4.2" /> <id nullFlavor="NA& quot; /> <code codeSystem="local" code="900.0530& quot; displayName="GLUCOMETER" /> <statusCode code=& quot;completed" /> <effectiveTime value="718540945634& quot; /> <value unit="mg/dL" xsi:type="PQ" value="219" /> <interpretationCode codeSystem=" local" code="H" /> <referenceRange> & lt;observationRange> <text>65-110</text> </observationRange> </referenceRange> </ observation> </component> </organizer> </entry> & lt;entry> <organizer moodCode="EVN" classCode="BATTERY& quot;> <templateId root="2.16.840.1.777727.10.20.22.4.1" /& gt; <id nullFlavor="NA" /> <code codeSystem=" local" code="LCBCM" displayName="L100.0060" /> <statusCode code="completed" /> <component> & lt;observation moodCode="EVN" classCode="OBS"> & lt;templateId root="2.16.840.1.264273.10.20.22.4.2" /> &lt ;id nullFlavor="NA" /> <code codeSystem="local& quot; code="100.0150" displayName="WBC - WHITE BLOOD COUNT" /> <statusCode code="completed" /> < effectiveTime value="999227395987" /> <value unit=&quot ;T/MM3" xsi:type="PQ" value="7.9" /> < interpretationCode codeSystem="local" code="N" /> <referenceRange> <observationRange> < text>4.5-11.0</text> </observationRange> </ referenceRange> </observation> </component> < component> <observation moodCode="EVN" classCode=" OBS"> <templateId root="2.16.840.1.911740.10.20.22.4.2& quot; /> <id nullFlavor="NA" /> <code codeSystem="local" code="100.0250" displayName="RED BLOOD COUNT" /> <statusCode code="completed" /&gt ; <effectiveTime value="254909383514" /> < value unit="M/MM3" xsi:type="PQ" value="3.55" /&gt ; <interpretationCode codeSystem="local" code="L&quot ; /> <referenceRange> <observationRange> & lt;text>4.00-5.20</text> </observationRange> </referenceRange> </observation> </component>< component> <observation moodCode="EVN" classCode=" OBS"> <templateId root="2.16.840.1.798960.10.20.22.4.2" /> <id nullFlavor="NA" /> <code codeSystem="local" code="100.0300" displayName="HGB - HEMOGLOBIN" /> <statusCode code="completed" /> <effectiveTime value="801096609536" /> <value unit="GM/DL"xsi:type="PQ" value="9.7" /> <interpretationCode codeSystem="local" code="L" /&gt ; <referenceRange> <observationRange> <text>12-16</text> </observationRange> </referenceRange> </observation> </component> <component> <observation moodCode="EVN" classCode= "OBS"> <templateId root=" 2.16.840.1.351997.10.20.22.4.2" /> <id nullFlavor="NA& quot; /> <code codeSystem="local" code="100.0400" displayName="HCT - HEMATOCRIT" /> <statusCode code=& quot;completed" /> <effectiveTime value="780387910825& quot; /> <value unit="%" xsi:type="PQ&quot ; value="31.2" /> <interpretationCode codeSystem=" local" code="L" /> <referenceRange> <observationRange> <text>36-46</text> </observationRange> </referenceRange> </observation&gt ; </component> <component> <observation moodCode ="EVN" classCode="OBS"> <templateId root=& quot;2.16.840.1.539562.10.20.22.4.2" /> <id nullFlavor=&quot ;NA" /> <code codeSystem="local" code=" 100.0550" displayName="MEAN CORPUSCULAR VOLUME" /> < statusCode code="completed" /> <effectiveTime value=& quot;613522337670" /> <value unit="UM3" xsi:type=& quot;PQ" value="87.9" /> <interpretationCode codeSystem="local" code="N" /> <referenceRange> <observationRange> <text>80-100</text&gt ; </observationRange> </referenceRange> & lt;/observation> </component> <component> < observation moodCode="EVN" classCode="OBS"> < templateId root="2.16.840.1.665429.10.20.22.4.2" /> < id nullFlavor="NA" /> <code codeSystem="local&quot ; code="100.0600" displayName="MEAN CORPUSCULAR HGB" /> <statusCode code="completed" /> < effectiveTime value="883533126831" /> <value unit="UUG& quot; xsi:type="PQ" value="27.3" /> < interpretationCode codeSystem="local" code="N" /> <referenceRange> <observationRange> < text>26-34</text> </observationRange> </ referenceRange> </observation> </component> < component> <observation moodCode="EVN" classCode=" OBS"> <templateId root="2.16.840.1.992547.10.20.22.4.2& quot; /> <id nullFlavor="NA" /> <code codeSystem="local" code="100.0650"displayName="MEAN CORPUSCULAR HGB CONC([facility]" /> <statusCode code=" completed" /> <effectiveTime value="575585179596" /> <value unit="GM/DL" xsi:type="PQ" value=& quot;31.1" /> <interpretationCode codeSystem="local& quot; code="N" /> <referenceRange> < observationRange> <text>31-37</text> < /observationRange> </referenceRange> </observation& gt; </component> <component> <observation moodCode="EVN" classCode="OBS"><templateId root=" 2.16.840.1.707494.10.20.22.4.2" /> <id nullFlavor="NA& quot; /> <code codeSystem="local" code="100.0750& quot; displayName="RDW STANDARD DEVIATION" /> < statusCode code="completed" /> <effectiveTime value=" 945353169280" /> <value unit="FL" xsi:type=" PQ" value="50.3" /> <interpretationCode codeSystem ="local" code="H" /> <referenceRange> <observationRange> <text>36.9-50.2</text&gt ; </observationRange> </referenceRange> & lt;/observation> </component> <component> < observation moodCode="EVN" classCode="OBS"> < templateId root="2.16.840.1.873136.10.20.22.4.2" /> < id nullFlavor="NA" /> <code codeSystem="local" code="100.0850" displayName="PLT - PLATELET COUNT" /> <statusCode code="completed" /> < effectiveTime value="184891762449" /> <value unit=&quot ;T/MM3" xsi:type="PQ" value="264" /> < interpretationCode codeSystem="local" code="N" /> <referenceRange> <observationRange> < text>130-400</text> </observationRange> </ referenceRange> </observation> </component> < component> <observation moodCode="EVN" classCode=" OBS"> <templateId root="2.16.840.1.856882.10.20.22.4.2& quot; /> <id nullFlavor="NA" /> <code codeSystem="local" code="100.0950" displayName="MEAN PLATELET VOLUME" /> <statusCode code="completed" /& gt; <effectiveTime value="600281108225" /> &lt ;value unit="UM3" xsi:type="PQ" value="9.5" /> <interpretationCode codeSystem="local" code="N&quot ; /> <referenceRange> <observationRange> <text>9.4-12.4</text> </observationRange> </referenceRange> </observation> </component&gt ; <component> <observation moodCode="EVN" classCode="OBS"> <templateId root=" 2.16.840.1.349432.10.20.22.4.2" /> <id nullFlavor="NA& quot; /> <code codeSystem="local" code="100.1650& quot; displayName="NEUTROPHILS % (MANUAL)" /> < statusCode code="completed" /> <effectiveTime value=& quot;593540481321" /> <value unit="%" xsi: type="PQ" value="72.0" /> < interpretationCode codeSystem="local" code="H" /> <referenceRange> <observationRange> < text>33-66</text> </observationRange> </ referenceRange> </observation> </component> < component> <observation moodCode="EVN" classCode=" OBS"> <templateId root="2.16.840.1.210467.10.20.22.4.2& quot; /> <id nullFlavor="NA" /> <code codeSystem="local" code="100.1750" displayName="BAND NEUTROPHILS %" /> <statusCode code="completed& quot; /> <effectiveTime value="367086649445" /> & lt;value unit="%" xsi:type="PQ" value="6.0&quot ; /> <interpretationCode codeSystem="local" code="N" / > <referenceRange> <observationRange> <text>0-6</text> </observationRange> </referenceRange> </observation> </component> <component> <observation moodCode="EVN" classCode ="OBS"> <templateId root=" 2.16.840.1.935651.10.20.22.4.2" /> <idnullFlavor="NA& quot; /> <code codeSystem="local" code="100.1850& quot; displayName="LYMPHOCYTES % (MANUAL)" /> < statusCode code="completed" /> <effectiveTime value=& quot;135059062208" /> <value unit="%" xsi: type="PQ" value="17.0" /> < interpretationCode codeSystem="local" code="L" /> <referenceRange> <observationRange> < text>23-45</text> </observationRange> </ referenceRange> </observation> </component> < component> <observation moodCode="EVN" classCode=" OBS"> <templateId root="2.16.840.1.609221.10.20.22.4.2& quot; /> <id nullFlavor="NA" /> <code codeSystem="local" code="100.1950" displayName=" MONOCYTES % (MANUAL)" /> <statusCode code=" completed" /> <effectiveTime value="148121425317" /> <value unit="%" xsi:type="PQ" value="5.0" /> <interpretationCode codeSystem=" local" code="N" /> <referenceRange> <observationRange> <text>0-9.0</text> </observationRange> </referenceRange> </ observation> </component> <component> < observation moodCode="EVN" classCode="OBS"> < templateId root="2.16.840.1.287213.10.20.22.4.2" /> < id nullFlavor="NA" /> <code codeSystem="local&quot ; code="100.2600" displayName="BAND NEUTROPHILS #" /> <statusCode code="completed" /> < effectiveTime value="114982531272" /> <value unit=&quot ;T/MM3" xsi:type="PQ" value="0.5" /> < interpretationCode codeSystem="local" code="N" /> <referenceRange> <observationRange> < text /> </observationRange> </referenceRange&gt ; </observation> </component> <component> & lt;observation moodCode="EVN" classCode="OBS"> & lt;templateId root="2.16.840.1.287844.10.20.22.4.2" /> &lt ;id nullFlavor="NA" /> <code codeSystem="local& quot; code="100.2650" displayName="NEUTROPHILS # (MANUAL)" / > <statusCode code="completed" /> < effectiveTime value="223956925134" /> <value unit=&quot ;T/MM3" xsi:type="PQ" value="5.7" /> < interpretationCode codeSystem="local" code="N" /> < referenceRange> <observationRange> <text> 1.8-7.7</text> </observationRange> </ referenceRange> </observation> </component> < component> <observation moodCode="EVN" classCode=" OBS"> <templateId root="2.16.840.1.351075.10.20.22.4.2& quot;/> <id nullFlavor="NA" /> <code codeSystem="local"code="100.2700" displayName=" LYMPHOCYTES # (MANUAL)" /> <statusCode code="completed& quot; /> <effectiveTime value="502197138225" /> <value unit="T/MM3" xsi:type="PQ" value="1.3&quot ; /><interpretationCode codeSystem="local" code="N" /& gt; <referenceRange> <observationRange> <text>1-4.8</text> </observationRange> </referenceRange> </observation> </component> <component> <observation moodCode="EVN" classCode="OBS"> <templateId root=" 2.16.840.1.779958.10.20.22.4.2" /> <id nullFlavor="NA& quot; /> <code codeSystem="local" code="100.2750& quot; displayName="MONOCYTES # (MANUAL)" /> < statusCode code="completed" /> <effectiveTime value=& quot;754089627424" /> <value unit="T/MM3" xsi:type ="PQ" value="0.4" /> < interpretationCodecodeSystem="local" code="N" /> <referenceRange> <observationRange> < text>0-0.8</text> </observationRange> </ referenceRange> </observation> </component> < component> <observation moodCode="EVN" classCode=" OBS"> <templateId root="2.16.840.1.878638.10.20.22.4.2& quot; /> <id nullFlavor="NA" /> <code codeSystem="local" code="100.4595" displayName="RBC MORPHOLOGY" /> <statusCode code="completed" /> <effectiveTime value="647138818684" /> < value unit="" xsi:type="PQ" value="ABNORMAL" /&gt ; <interpretationCode codeSystem="local"code="N&quot ; /> <referenceRange> <observationRange> <text /> </observationRange> </referenceRange > </observation> </component> <component> <observation moodCode="EVN" classCode="OBS"> <templateId root="2.16.840.1.076505.10.20.22.4.2" /> <id nullFlavor="NA" /> <code codeSystem=& quot;local" code="100.4600" displayName="ANISOCYTOSIS" /> <statusCode code="completed" /> < effectiveTime value="691429855167" /> <value unit=" " xsi:type="PQ" value="1+" /> < interpretationCode codeSystem="local" code="N" /> <referenceRange> <observationRange> < text /> </observationRange> </referenceRange&gt ; </observation> </component> <component> <observation moodCode="EVN" classCode="OBS"> <templateId root="2.16.840.1.545915.10.20.22.4.2" /> <id nullFlavor="NA" /> <code codeSystem=" local" code="100.4650" displayName="POIKILOCYTOSIS" /& gt; <statusCode code="completed" /> < effectiveTime value="950430002738" /> <value unit=&quot ;" xsi:type="PQ" value="1+" /> < interpretationCode codeSystem="local" code="N" /> <referenceRange> <observationRange> <text /> </observationRange> </referenceRange> < /observation> </component> </organizer> </entry> <entry> <organizer moodCode="EVN" classCode="BATTERY& quot;> <templateId root="2.16.840.1.294050.10.20.22.4.1" /& gt; <id nullFlavor="NA" /> <code codeSystem=" local" code="LBMP" displayName="L200.0050" /> & lt;statusCode code="completed" /> <component> &lt ;observation moodCode="EVN" classCode="OBS"> &lt ;templateId root="2.16.840.1.600358.10..22.4.2" /> < id nullFlavor="NA" /> <code codeSystem="local&quot ; code="200.0097" displayName="ICTERUS" /> < statusCode code="completed" /> <effectiveTime value=& quot;475304797236" /> <value unit="" xsi:type="PQ& quot; value="< 2" /> <interpretationCode codeSystem="local" code="N" /> < referenceRange> <observationRange> <text> 0-7</text> </observationRange> </ referenceRange> </observation> </component> < component> <observation moodCode="EVN" classCode=" OBS"> <templateId root="2.16.840.1.806222.10..22.4.2& quot; /> <id nullFlavor="NA" /> <code codeSystem="local" code="200.0098"displayName=" HEMOLYSIS" /> <statusCode code="completed" /> <effectiveTime value="009035706951" /> <value unit="" xsi:type="PQ" value="< 15" /> <interpretationCode codeSystem="local" code="N" / > <referenceRange> <observationRange> <text>0-25</text> </observationRange> </referenceRange> </observation> </component> <component> <observation moodCode="EVN" classCode=&quot ;OBS"> <templateId root="2.16.840.1.597408.10.20.22.4.2 " /> <id nullFlavor="NA" /> <code codeSystem="local" code="200.0099" displayName=" TURBIDITY" /> <statusCode code="completed" /> <effectiveTime value="181417742484" /> < value unit="" xsi:type="PQ" value="< 20" /& gt; <interpretationCode codeSystem="local" code="N& quot; /> <referenceRange> <observationRange> <text>0-20</text> </observationRange&gt ; </referenceRange> </observation> </ component> <component> <observation moodCode="EVN& quot; classCode="OBS"> <templateId root=" 2.16.840.1.591862.10.20.22.4.2" /> <id nullFlavor="NA& quot; /> <code codeSystem="local" code="200.0100& quot; displayName="SODIUM" /> <statusCode code=" completed" /> <effectiveTime value="444018893903" /> <value unit="MEQ/L" xsi:type="PQ" value="144& quot; /> <interpretationCode codeSystem="local" code=& quot;N" /> <referenceRange> < observationRange> <text>134-144</text> & lt;/observationRange> </referenceRange> </ observation> </component> <component> < observation moodCode="EVN" classCode="OBS"> < templateId root="2.16.840.1.535000.10.20.22.4.2" /> < id nullFlavor="NA" /> <code codeSystem="local&quot ; code="200.0150" displayName="POTASSIUM" /> &lt ;statusCode code="completed" /> <effectiveTime value=&quot ;283446382009" /> <value unit="MEQ/L" xsi:type=& quot;PQ" value="3.8" /> <interpretationCode codeSystem="local" code="N" /> < referenceRange> <observationRange> <text> 3.6-5</text> </observationRange> </ referenceRange> </observation> </component> < component> <observation moodCode="EVN" classCode="OBS" > <templateId root="2.16.840.1.152269.10.20.22.4.2" /& gt; <id nullFlavor="NA" /> <code codeSystem=& quot;local" code="200.0200" displayName="CHLORIDE" /&gt ; <statusCode code="completed" /> < effectiveTime value="438222509823" /> <value unit=&quot ;MEQ/L" xsi:type="PQ" value="106" /> < interpretationCode codeSystem="local" code="N" /> <referenceRange> <observationRange> < text>98-107</text> </observationRange> </ referenceRange> </observation> </component> < component> <observation moodCode="EVN" classCode=" OBS"> <templateId root="2.16.840.1.092342.10.20.22.4.2& quot; /> <id nullFlavor="NA" /> <code codeSystem="local" code="200.0250" displayName="CO2 - CARBON DIOXIDE" /> <statusCode code="completed" /& gt; <effectiveTime value="351035804304" /> &lt ;value unit="MEQ/L" xsi:type="PQ" value="26" /&gt ; <interpretationCode codeSystem="local" code="N" /& gt; <referenceRange> <observationRange> <text>22-30</text> </observationRange> </ referenceRange> </observation> </component> < component> <observation moodCode="EVN" classCode=" OBS"> <templateId root="2.16.840.1.636637.10.20.22.4.2& quot; /><id nullFlavor="NA" /> <code codeSystem=& quot;local" code="200.0300" displayName="ANION GAP" /& gt; <statusCode code="completed" /> < effectiveTime value="716078987934" /> <value unit=&quot ;MEQ/L" xsi:type="PQ" value="12" /> < interpretationCode codeSystem="local" code="N" /> <referenceRange> <observationRange> < text>5-15</text> </observationRange> </ referenceRange> </observation> </component> < component> <observation moodCode="EVN" classCode=" OBS"> <templateId root="2.16.840.1.659337.10.20.22.4.2& quot; /> <id nullFlavor="NA" /> <code codeSystem="local" code="200.0350" displayName="BLOOD UREA NITROGEN" /> <statusCode code="completed" /& gt; <effectiveTime value="588532520672" /> &lt ;value unit="MG/DL" xsi:type="PQ" value="14.0" /& gt; <interpretationCode codeSystem="local" code="N& quot; /> <referenceRange> <observationRange> <text>7-17</text> </observationRange> </referenceRange> </observation> </component> <component> <observationmoodCode="EVN" classCode=& quot;OBS"> <templateId root=" 2.16.840.1.633799.10.20.22.4.2" /> <id nullFlavor="NA& quot; /> <code codeSystem="local" code="200.0400& quot; displayName="CREATININE" /> <statusCode code=" completed" /> <effectiveTime value="524371628266" /> <value unit="MG/DL" xsi:type="PQ" value=& quot;0.8" /> <interpretationCode codeSystem="local&quot ; code="N" /> <referenceRange> < observationRange> <text>0.7-1.2</text> & lt;/observationRange> </referenceRange> </ observation> </component> <component> < observation moodCode="EVN" classCode="OBS"> < templateId root="2.16.840.1.998718.10.20.22.4.2" /> < id nullFlavor="NA" /> <code codeSystem="local&quot ; code="200.0450" displayName="BUN/CREATININE RATIO" /> <statusCode code="completed" /> < effectiveTime value="724091151967" /><value unit="RATIO& quot; xsi:type="PQ" value="18" /> < interpretationCode codeSystem="local" code="N" /> <referenceRange> <observationRange> < text>6-26</text> </observationRange> </ referenceRange> </observation> </component> < component> <observation moodCode="EVN" classCode=" OBS"> <templateId root="2.16.840.1.986559.10.20.22.4.2& quot; /> <id nullFlavor="NA" /> <code codeSystem="local" code="200.0475" displayName=" GLOMERULAR FILTRATION RATE" /> <statusCode code=" completed" /> <effectiveTime value="342273800440" /> <value unit="" xsi:type="PQ" value=" 71" /> <interpretationCode codeSystem="local" code ="N" /> <referenceRange> < observationRange> <text /> </ observationRange> </referenceRange> </observation&gt ; </component> <component> <observation moodCode ="EVN" classCode="OBS"> <templateId root=& quot;2.16.840.1.213604.10.20.22.4.2" /> <id nullFlavor=&quot ;NA" /> <code codeSystem="local" code=" 200.0500" displayName="GLUCOSE" /> <statusCode code=& quot;completed" /> <effectiveTime value="142088709415& quot; /> <value unit="MG/DL" xsi:type="PQ" value="111" /> <interpretationCode codeSystem=" local" code="H" /> <referenceRange> < observationRange> <text>65-110</text> &lt ;/observationRange> </referenceRange> </observation& gt; </component> <component> <observation moodCode="EVN" classCode="OBS"> <templateId root="[id number]" /> <id nullFlavor ="NA" /> <code codeSystem="local" code=" 200.0550" displayName="OSMOLALITY,CALCULATED" /> < statusCode code="completed" /> <effectiveTime value=& quot;[id number]" /> <value unit="MOSM/KG" xsi:type=& quot;PQ" value="279" /> <interpretationCode codeSystem="local" code="N" /> < referenceRange> <observationRange> <text> 261-280</text> </observationRange> </ referenceRange> </observation> </component> < component> <observation moodCode="EVN" classCode=" OBS"> <templateId root="2.16.840.1.882070.10.20.22.4.2& quot; /> <id nullFlavor="NA" /> <code codeSystem="local" code="200.0600" displayName="CALCIUM " /> <statusCode code="completed" /> &lt ;effectiveTime value="745675572296" /> <value unit=& quot;MG/DL" xsi:type="PQ" value="8.6" /> & lt;interpretationCode codeSystem="local" code="N" /> <referenceRange> <observationRange> & lt;text>8.4-10.2</text> </observationRange></ referenceRange> </observation> </component> </ organizer> </entry> <entry> <organizer moodCode="EVN " classCode="BATTERY"> <templateId root=" 2.16.840.1.380199.10.20.22.4.1" /> <id nullFlavor="NA&quot ; /> <code codeSystem="local" code="LBGM" displayName="L900.0530" /> <statusCode code="completed " /> <component> <observation moodCode="EVN&quot ; classCode="OBS"> <templateIdroot=" 2.16.840.1.149369.10.20.22.4.2" /> <id nullFlavor="NA& quot; /> <code codeSystem="local" code="900.0530& quot; displayName="GLUCOMETER" /> <statusCode code=& quot;completed" /> <effectiveTime value="002876428393& quot; /> <value unit="mg/dL" xsi:type="PQ" value="65" /> <interpretationCode codeSystem=" local" code="N" /> <referenceRange> <observationRange> <text>65-110</text> </observationRange> </referenceRange> </ observation> </component> </organizer> </entry> & lt;entry> <organizer moodCode="EVN" classCode="BATTERY& quot;> <templateId root="2.16.840.1.677325.10.20.22.4.1" /& gt; <id nullFlavor="NA" /> <code codeSystem=" local" code="LBGM" displayName="L900.0530" /> & lt;statusCode code="completed" /> <component> &lt ;observation moodCode="EVN" classCode="OBS"> &lt ;templateId root="2.16.840.1.764955.10.20.22.4.2" /> < id nullFlavor="NA" /> <code codeSystem="local&quot ; code="900.0530" displayName="GLUCOMETER" /> & lt;statusCode code="completed" /> <effectiveTime value= "686973465370" /> <value unit="mg/dL" xsi: type="PQ" value="65" /> <interpretationCode codeSystem="local" code="N" /> < referenceRange> <observationRange> <text> 65-110</text> </observationRange> </referenceRange> </observation> </component> </organizer> < /entry> <entry> <organizer moodCode="EVN" classCode=& quot;BATTERY"> <templateId root=" 2.16.840.1.799203.10.20.22.4.1" /> <id nullFlavor="NA&quot ; /> <code codeSystem="local" code="LBGM" displayName="L900.0530" /> <statusCode code="completed " /> <component> <observation moodCode="EVN& quot; classCode="OBS"> <templateId root=" 2.16.840.1.458548.10.20.22.4.2" /> <id nullFlavor="NA& quot; /> <code codeSystem="local" code="900.0530& quot; displayName="GLUCOMETER" /> <statusCode code=& quot;completed" /> <effectiveTime value="636932182289& quot; /> <value unit="mg/dL" xsi:type="PQ" value="72" /> <interpretationCode codeSystem=" local" code="N" /> <referenceRange> <observationRange> <text>65-110</text> </observationRange> </referenceRange> </observation& gt; </component> </organizer> </entry> <entry&gt ; <organizer moodCode="EVN" classCode="BATTERY"> <templateId root="2.16.840.1.303143.10.20.22.4.1" /> & lt;id nullFlavor="NA" /> <code codeSystem="local&quot ; code="LBGM" displayName="L900.0530" /> < statusCode code="completed" /> <component> < observation moodCode="EVN" classCode="OBS"> < templateId root="2.16.840.1.512384.10.20.22.4.2" /> < id nullFlavor="NA"/> <code codeSystem="local&quot ; code="900.0530" displayName="GLUCOMETER" /> & lt;statusCode code="completed" /> <effectiveTime value= "279890647778" /> <value unit="mg/dL" xsi: type="PQ" value="71" /> <interpretationCode codeSystem="local" code="N" /> < referenceRange> <observationRange> <text> 65-110</text> </observationRange> </ referenceRange> </observation> </component> </ organizer> </entry> <entry> <organizer moodCode="EVN " classCode="BATTERY"> <templateId root=" 2.16.840.1.146844.10.20.22.4.1" /> <id nullFlavor="NA&quot ; /> <code codeSystem="local" code="LBGM" displayName="L900.0530" /> <statusCode code="completed& quot; /> <component> <observation moodCode="EVN& quot; classCode="OBS"> <templateId root=" 2.16.840.1.777189.10.20.22.4.2" /> <id nullFlavor="NA& quot; /> <code codeSystem="local" code="900.0530& quot; displayName="GLUCOMETER" /> <statusCode code=& quot;completed" /> <effectiveTime value="196383607928& quot; /> <value unit="mg/dL" xsi:type="PQ" value="75" /> <interpretationCode codeSystem="local& quot; code="N" /> <referenceRange> < observationRange> <text>65-110</text> </ observationRange> </referenceRange> </observation&gt ; </component> </organizer> </entry> <entry> <organizer moodCode="EVN" classCode="BATTERY"> <templateId root="2.16.840.1.308859.10.20.22.4.1" /> < id nullFlavor="NA" /> <code codeSystem="local" code="LCBCM" displayName="L100.0060" /> < statusCode code="completed" /> <component> < observation moodCode="EVN" classCode="OBS"> < templateId root="2.16.840.1.384478.10.20.22.4.2" /> <id nullFlavor="NA" /> <code codeSystem="local" code="100.0150" displayName="WBC - WHITE BLOOD COUNT" /> <statusCode code="completed" /> < effectiveTime value="740651311696" /> <value unit=&quot ;T/MM3" xsi:type="PQ" value="7.1" /> < interpretationCode codeSystem="local" code="N" /> <referenceRange> <observationRange> < text>4.5-11.0</text> </observationRange> < /referenceRange> </observation> </component> &lt ;component> <observation moodCode="EVN" classCode=" OBS"> <templateId root="2.16.840.1.354768.10.20.22.4.2& quot; /> <id nullFlavor="NA" /> <code codeSystem="local" code="100.0250" displayName="RED BLOOD COUNT" /> <statusCode code="completed" /&gt ; <effectiveTime value="111657644287" /> < value unit="M/MM3" xsi:type="PQ" value="3.70" /&gt ; <interpretationCode codeSystem="local" code="L&quot ; /> <referenceRange> <observationRange> <text>4.00-5.20</text> </observationRange&gt ; </referenceRange> </observation> </component&gt ; <component> <observation moodCode="EVN" classCode="OBS"> <templateId root=" 2.16.840.1.480662.10.20.22.4.2" /> <id nullFlavor="NA& quot; /> <code codeSystem="local" code="100.0300& quot; displayName="HGB -HEMOGLOBIN" /> <statusCode code ="completed" /> <effectiveTime value="768723709819 " /> <value unit="GM/DL" xsi:type="PQ" value="9.8" /> <interpretationCode codeSystem=" local" code="L" /> <referenceRange> <observationRange> <text>12-16</text> </ observationRange> </referenceRange> </observation&gt ; </component> <component> <observation moodCode ="EVN" classCode="OBS"> <templateId root=& quot;2.16.840.1.290334.10.20.22.4.2" /> <id nullFlavor=&quot ;NA" /> <code codeSystem="local" code=" 100.0400" displayName="HCT - HEMATOCRIT" /> < statusCode code="completed" /> <effectiveTime value=& quot;893068318264" /> <value unit="%" xsi: type="PQ" value="32.4" /> < interpretationCode codeSystem="local" code="L" /> <referenceRange> <observationRange> <text >36-46</text> </observationRange> </ referenceRange> </observation> </component> < component> <observation moodCode="EVN" classCode=" OBS"> <templateId root="2.16.840.1.399411.10..22.4.2& quot; /> <id nullFlavor="NA" /> <code codeSystem="local" code="100.0550" displayName="MEAN CORPUSCULAR VOLUME" /> <statusCode code="completed&quot ; /> <effectiveTime value="870225158027" /> <value unit="UM3" xsi:type="PQ" value="87.6" /> <interpretationCode codeSystem="local" code="N" /& gt; <referenceRange> <observationRange> <text>80-100</text> </observationRange> </ referenceRange> </observation> </component> < component> <observation moodCode="EVN" classCode=" OBS"> <templateId root="2.16.840.1.519928.10..22.4.2& quot; /> <id nullFlavor="NA" /> <code codeSystem="local" code="100.0600" displayName="MEAN CORPUSCULAR HGB" /> <statusCode code="completed" / > <effectiveTime value="687168296766" /> & lt;value unit="UUG" xsi:type="PQ" value="26.5" /& gt; <interpretationCode codeSystem="local" code="N& quot; /> <referenceRange> <observationRange> <text>26-34</text> </observationRange&gt ; </referenceRange> </observation> </ component> <component> <observation moodCode="EVN& quot; classCode="OBS"> <templateId root=" 2.16.840.1.853414.10.20.22.4.2" /> <id nullFlavor="NA& quot; /> <code codeSystem="local" code="100.0650& quot; displayName="MEAN CORPUSCULAR HGB CONC([facility]" /> < statusCode code="completed" /> <effectiveTime value=& quot;539160663258" /> <value unit="GM/DL" xsi:type ="PQ" value="30.2" /> <interpretationCode codeSystem="local" code="L" /> < referenceRange> <observationRange> <text> 31-37</text> </observationRange></referenceRange> </observation> </component> <component> & lt;observation moodCode="EVN" classCode="OBS"> & lt;templateId root="2.16.840.1.149901.10.20.22.4.2" /> &lt ;id nullFlavor="NA" /> <code codeSystem="local&quot ; code="100.0750" displayName="RDW STANDARD DEVIATION" /&gt ; <statusCode code="completed" /> < effectiveTime value="130562836240" /> <value unit=&quot ;FL" xsi:type="PQ" value="50.3" /> < interpretationCode codeSystem="local" code="H" /> <referenceRange> <observationRange> <text>36.9- 50.2</text> </observationRange> </ referenceRange> </observation> </component> < component> <observation moodCode="EVN" classCode=" OBS"> <templateId root="2.16.840.1.361366.10.20.22.4.2& quot; /> <id nullFlavor="NA" /> <code codeSystem="local" code="100.0850" displayName="PLT - PLATELET COUNT" /> <statusCode code="completed" /& gt; <effectiveTime value="553005416869" /> &lt ;value unit="T/MM3" xsi:type="PQ" value="250" /&gt ; <interpretationCode codeSystem="local" code="N&quot ; /> <referenceRange> <observationRange> <text>130-400</text> </observationRange> </referenceRange> </observation> </ component> <component> <observation moodCode="EVN& quot; classCode="OBS"> <templateId root=" 2.16.840.1.662099.10.20.22.4.2" /> <id nullFlavor="NA& quot; /> <code codeSystem="local" code="100.0950& quot; displayName="MEAN PLATELET VOLUME" /> < statusCode code="completed" /> <effectiveTime value=& quot;880637363515" /> <value unit="UM3" xsi:type=& quot;PQ" value="9.9" /> <interpretationCode codeSystem=& quot;local" code="N" /> <referenceRange> <observationRange> <text>9.4-12.4</text> </observationRange> </referenceRange> </ observation> </component> <component> < observation moodCode="EVN" classCode="OBS"> < templateId root="2.16.840.1.860235.10.20.22.4.2" /><id nullFlavor="NA" /> <code codeSystem="local" code="100.1650" displayName="NEUTROPHILS % (MANUAL)&quot ; /> <statusCode code="completed" /> < effectiveTime value="819902977226" /><value unit="% " xsi:type="PQ" value="72.0" /> < interpretationCode codeSystem="local" code="H" /> <referenceRange> <observationRange> < text>33-66</text> </observationRange> </ referenceRange> </observation> </component> < component> <observation moodCode="EVN" classCode=" OBS"> <templateId root="2.16.840.1.860834.10.20.22.4.2& quot; /> <id nullFlavor="NA" /> <code codeSystem="local" code="100.1750" displayName="BAND NEUTROPHILS %" /> <statusCode code="completed& quot; /> <effectiveTime value="611940659052" /> <value unit="%" xsi:type="PQ" value=" 4.0" /> <interpretationCode codeSystem="local" code="N" /> <referenceRange> <observationRange > <text>0-6</text> </observationRange& gt; </referenceRange> </observation> </ component> <component> <observation moodCode="EVN& quot; classCode="OBS"><templateId root=" 2.16.840.1.248396.10.20.22.4.2" /> <id nullFlavor="NA& quot; /> <code codeSystem="local" code="100.1850& quot; displayName="LYMPHOCYTES % (MANUAL)" /> < statusCode code="completed" /> <effectiveTime value=& quot;031981139557" /> <value unit="%" xsi: type="PQ" value="17.0" /> < interpretationCode codeSystem="local" code="L" /> <referenceRange> <observationRange> < text>23-45</text> </observationRange> </ referenceRange> </observation> </component> < component> <observation moodCode="EVN" classCode=" OBS"> <templateId root="2.16.840.1.534674.10.20.22.4.2& quot; /> <id nullFlavor="NA" /> <code codeSystem="local" code="100.1950" displayName=" MONOCYTES % (MANUAL)" /> <statusCode code=" completed" /> <effectiveTime value="362647946442" /> <value unit="%" xsi:type="PQ" value=& quot;5.0" /> <interpretationCode codeSystem="local&quot ; code="N" /> <referenceRange> < observationRange> <text>0-9.0</text> < /observationRange> </referenceRange> </observation& gt; </component> <component> <observation moodCode=& quot;EVN" classCode="OBS"> <templateId root=" 2.16.840.1.590962.10.20.22.4.2" /> <id nullFlavor="NA& quot; /> <code codeSystem="local" code="100.2049&quot ; displayName="EOSINOPHILS % (MANUAL)" /> < statusCode code="completed" /> <effectiveTime value=& quot;517054780492" /> <value unit="%" xsi: type="PQ" value="2.0" /> <interpretationCode codeSystem="local" code="N" /> < referenceRange> <observationRange> <text>0- 4</text> </observationRange> </referenceRange > </observation> </component> <component> <observation moodCode="EVN" classCode="OBS"> <templateId root="2.16.840.1.410786.10.20.22.4.2" /> <id nullFlavor="NA" /> <code codeSystem=& quot;local" code="100.2600" displayName="BAND NEUTROPHILS #& quot; /> <statusCode code="completed" /> & lt;effectiveTime value="405527238858" /> <value unit=& quot;T/MM3" xsi:type="PQ" value="0.3" /> & lt;interpretationCode codeSystem="local" code="N" /> <referenceRange> <observationRange> & lt;text /> </observationRange> </referenceRange& gt; </observation> </component> <component> <observation moodCode="EVN" classCode="OBS"> <templateId root="2.16.840.1.177653.10.20.22.4.2" /> & lt;id nullFlavor="NA" /> <code codeSystem="local& quot; code="100.2650" displayName="NEUTROPHILS # (MANUAL)" / > <statusCode code="completed" /> < effectiveTime value="038677098721" /> <value unit=&quot ;T/MM3" xsi:type="PQ" value="5.1" /> < interpretationCode codeSystem="local" code="N" /> <referenceRange> <observationRange> < text>1.8-7.7</text> </observationRange> </ referenceRange> </observation> </component> < component> <observation moodCode="EVN" classCode=" OBS"> <templateId root="2.16.840.1.482859.10.20.22.4.2& quot; /> <id nullFlavor="NA" /> <code codeSystem="local" code="100.2700" displayName=" LYMPHOCYTES # (MANUAL)" /> <statusCode code="completed& quot; /> <effectiveTime value="838239943609" /> <value unit="T/MM3" xsi:type="PQ" value="1.2& quot; /> <interpretationCode codeSystem="local" code=& quot;N" /> <referenceRange> < observationRange> <text>1-4.8</text> < /observationRange> </referenceRange> </observation> </component> <component> <observation moodCode=& quot;EVN" classCode="OBS"> <templateId root=" 2.16.840.1.002264.10.20.22.4.2" /> <id nullFlavor="NA& quot;/> <code codeSystem="local" code="100.2750& quot; displayName="MONOCYTES # (MANUAL)" /> < statusCode code="completed" /> <effectiveTime value=& quot;379648202566" /> <value unit="T/MM3" xsi:type ="PQ" value="0.4" /> <interpretationCode codeSystem="local" code="N" /> < referenceRange> <observationRange> <text>0-0.8& lt;/text> </observationRange> </referenceRange& gt; </observation> </component> <component> <observation moodCode="EVN" classCode="OBS"> <templateId root="2.16.840.1.921809.10.20.22.4.2" /> <id nullFlavor="NA" /> <code codeSystem=&quot ;local" code="100.2800" displayName="EOSINOPHILS # (MANUAL)& quot; /> <statusCode code="completed" /> & lt;effectiveTime value="227972244442" /> <value unit=& quot;T/MM3" xsi:type="PQ" value="0.1" /> & lt;interpretationCode codeSystem="local" code="N"/> <referenceRange> <observationRange> &lt ;text>0-0.5</text> </observationRange> </ referenceRange> </observation> </component> < component> <observation moodCode="EVN" classCode=" OBS"> <templateId root="2.16.840.1.293266.10.20.22.4.2& quot; /> <id nullFlavor="NA" /> <code codeSystem="local" code="100.4150" displayName=" NUCLEATED RED BLOOD CELLS" /> <statusCode code=" completed" /> <effectiveTime value="043570602991" /> <value unit="" xsi:type="PQ" value="1 " /> <interpretationCode codeSystem="local" code=" N" /> <referenceRange> <observationRange&gt ; <text /> </observationRange> < /referenceRange> </observation> </component> < component> <observation moodCode="EVN" classCode=" OBS"> <templateId root="2.16.840.1.293877.10.20.22.4.2&quot ; /> <id nullFlavor="NA" /> <code codeSystem="local" code="100.4595" displayName="RBC MORPHOLOGY" /> <statusCode code="completed" /> <effectiveTime value="160975710874" /> <value unit="" xsi:type="PQ" value="ABNORMAL" /> <interpretationCode codeSystem="local" code="N" /&gt ; <referenceRange> <observationRange> <text /> </observationRange> </ referenceRange> </observation> </component> < component> <observation moodCode="EVN" classCode=" OBS"> <templateId root="2.16.840.1.273520.10.20.22.4.2& quot; /> <id nullFlavor="NA" /> <code codeSystem="local" code="100.4600" displayName=" ANISOCYTOSIS" /> <statusCode code="completed" /> <effectiveTime value="497823240263" /> <value unit="" xsi:type="PQ" value="1+" /> < interpretationCode codeSystem="local" code="N" /> <referenceRange> <observationRange> < text /> </observationRange> </referenceRange&gt ; </observation> </component> <component> <observation moodCode="EVN" classCode="OBS"> <templateId root="2.16.840.1.643442.10.20.22.4.2" /> <id nullFlavor="NA" /> <code codeSystem=" local" code="100.4650" displayName="POIKILOCYTOSIS" /& gt; <statusCode code="completed" /> < effectiveTime value="831055269339" /> <value unit=&quot ;" xsi:type="PQ" value="1+" /> < interpretationCode codeSystem="local" code="N" /> <referenceRange> <observationRange> < text /> </observationRange> </referenceRange&gt ; </observation> </component> </organizer> </ entry> <entry> <organizer moodCode="EVN" classCode=& quot;BATTERY"> <templateId root=" 2.16.840.1.843093.10.20.22.4.1" /> <id nullFlavor="NA&quot ; /> <code codeSystem="local" code="LCMP" displayName="L200.0020" /> <statusCode code="completed& quot; /> <component> <observation moodCode="EVN& quot; classCode="OBS"> <templateId root=" 2.16.840.1.139616.10.20.22.4.2" /> <id nullFlavor="NA& quot; /> <code codeSystem="local" code="200.0097& quot; displayName="ICTERUS" /> <statusCode code=" completed" /> <effectiveTime value="520163364636" /> <value unit="" xsi:type="PQ" value="& amp;lt; 2" /> <interpretationCode codeSystem="local&quot ; code="N" /> <referenceRange> < observationRange> <text>0-7</text> </ observationRange> </referenceRange> </observation&gt ; </component> <component> <observation moodCode ="EVN" classCode="OBS"> <templateId root=& quot;2.16.840.1.777558.10.20.22.4.2" /> <id nullFlavor="NA&quot ; /> <code codeSystem="local" code="200.0098&quot ; displayName="HEMOLYSIS" /> <statusCode code=" completed" /> <effectiveTime value="460955288440" /> <value unit="" xsi:type="PQ" value="& amp;lt; 15" /> <interpretationCode codeSystem="local& quot; code="N" /> <referenceRange> < observationRange> <text>0-25</text> </ observationRange> </referenceRange> </observation> </component> <component> <observation moodCode= "EVN" classCode="OBS"> <templateId root=&quot ;2.16.840.1.935048.10.20.22.4.2" /> <id nullFlavor="NA& quot; /> <code codeSystem="local" code="200.0099& quot; displayName="TURBIDITY" /> <statusCode code=&quot ;completed" /> <effectiveTime value="083914562109&quot ; /> <value unit="" xsi:type="PQ"value=" < 20" /> <interpretationCode codeSystem="local& quot; code="N" /> <referenceRange> < observationRange> <text>0-20</text> </ observationRange> </referenceRange> </observation&gt ; </component> <component> <observation moodCode ="EVN" classCode="OBS"> <templateId root=& quot;2.16.840.1.260372.10.20.22.4.2" /> <id nullFlavor=&quot ;NA" /> <code codeSystem="local" code=" 200.0100" displayName="SODIUM" /> <statusCode code ="completed" /> <effectiveTime value="975826661121 " /> <value unit="MEQ/L" xsi:type="PQ" value="145" /> <interpretationCode codeSystem="local& quot; code="H" /> <referenceRange> < observationRange> <text>134-144</text> </ observationRange> </referenceRange> </observation&gt ; </component> <component> <observation moodCode ="EVN" classCode="OBS"> <templateId root=& quot;2.16.840.1.351830.10.20.22.4.2" /> <id nullFlavor="NA& quot; /> <code codeSystem="local" code="200.0150& quot; displayName="POTASSIUM" /> <statusCode code=&quot ;completed" /> <effectiveTime value="697812702978&quot ; /> <value unit="MEQ/L" xsi:type="PQ" value= "3.9" /> <interpretationCode codeSystem="local& quot; code="N" /> <referenceRange> < observationRange> <text>3.6-5</text> < /observationRange> </referenceRange> </observation&gt ; </component> <component> <observation moodCode ="EVN" classCode="OBS"> <templateId root=& quot;2.16.840.1.489391.10.20.22.4.2" /> <id nullFlavor=&quot ;NA" /> <code codeSystem="local" code=" 200.0200" displayName="CHLORIDE" /> <statusCode code="completed" /> <effectiveTime value=" 814323351792" /> <value unit="MEQ/L" xsi:type=& quot;PQ" value="106" /> <interpretationCode codeSystem="local" code="N" /> < referenceRange> <observationRange> <text> 98-107</text> </observationRange> </ referenceRange> </observation> </component> < component> <observation moodCode="EVN" classCode=" OBS"> <templateId root="2.16.840.1.161650.10.20.22.4.2& quot; /> <id nullFlavor="NA" /> <code codeSystem="local" code="200.0250" displayName="CO2 - CARBON DIOXIDE" /> <statusCode code="completed" /> <effectiveTime value="334785897766" /> < value unit="MEQ/L" xsi:type="PQ" value="28" /> <interpretationCode codeSystem="local" code="N&quot ; /> <referenceRange> <observationRange> <text>22-30</text> </observationRange> </referenceRange> </observation> </component> <component> <observation moodCode="EVN" classCode=& quot;OBS"> <templateId root=" 2.16.840.1.189137.10.20.22.4.2" /> <id nullFlavor="NA& quot; /> <code codeSystem="local" code="200.0300& quot; displayName="ANION GAP" /> <statusCode code=&quot ;completed" /> <effectiveTime value="882348853119&quot ; /> <value unit="MEQ/L" xsi:type="PQ" value= "11" /> <interpretationCode codeSystem="local&quot ; code="N" /> <referenceRange> <observationRange > <text>5-15</text> </observationRange > </referenceRange> </observation> </ component> <component> <observation moodCode="EVN& quot; classCode="OBS"> <templateId root=" 2.16.840.1.230602.10.20.22.4.2" /> <id nullFlavor="NA& quot; /> <code codeSystem="local" code="200.0350& quot; displayName="BLOOD UREA NITROGEN" /> <statusCode code="completed" /> <effectiveTime value="739114846057& quot; /> <value unit="MG/DL" xsi:type="PQ" value="13.0" /> <interpretationCode codeSystem=" local" code="N" /> <referenceRange> <observationRange> <text>7-17</text> & lt;/observationRange> </referenceRange> </ observation> </component> <component> < observation moodCode="EVN" classCode="OBS"> < templateId root="2.16.840.1.861819.10.20.22.4.2" /> < id nullFlavor="NA" /><code codeSystem="local" code=& quot;200.0400" displayName="CREATININE" /> < statusCode code="completed" /> <effectiveTime value=& quot;643519465324" /> <value unit="MG/DL" xsi:type ="PQ" value="0.7" /> <interpretationCode codeSystem="local" code="N" /> < referenceRange> <observationRange> <text> 0.7-1.2</text> </observationRange> </ referenceRange> </observation> </component> < component> <observation moodCode="EVN" classCode=" OBS"> <templateId root="2.16.840.1.922846.10.20.22.4.2& quot; /> <id nullFlavor="NA" /> <code codeSystem="local" code="200.0450" displayName="BUN/ CREATININE RATIO" /> <statusCode code="completed" /> <effectiveTime value="298673300609" /> & lt;value unit="RATIO" xsi:type="PQ" value="19" /& gt; <interpretationCode codeSystem="local" code="N" /& gt; <referenceRange> <observationRange> <text>6-26</text> </observationRange> </ referenceRange> </observation> </component> < component> <observation moodCode="EVN" classCode=" OBS"> <templateId root="[id number]& quot; /> <id nullFlavor="NA" /> <code codeSystem="local" code="200.0475" displayName=" GLOMERULAR FILTRATION RATE" /> <statusCode code=" completed" /> <effectiveTime value="[id number]" /> <value unit="" xsi:type="PQ" value=" 82" /> <interpretationCode codeSystem="local" code ="N" /> <referenceRange> < observationRange> <text /> </ observationRange> </referenceRange> </observation&gt ; </component> <component> <observation moodCode=&quot ;EVN" classCode="OBS"> <templateId root=" 2.16.840.1.416931.10.20.22.4.2" /> <id nullFlavor="NA& quot; /> <code codeSystem="local" code="200.0500&quot ; displayName="GLUCOSE" /> <statusCode code=" completed" /> <effectiveTime value="292160060556" /> <value unit="MG/DL" xsi:type="PQ" value=& quot;93" /> <interpretationCode codeSystem="local&quot ; code="N" /> <referenceRange> < observationRange> <text>65-110</text> &lt ;/observationRange> </referenceRange> </observation& gt; </component> <component> <observation moodCode="EVN" classCode="OBS"> <templateId root="2.16.840.1.151258.10.20.22.4.2" /> <id nullFlavor ="NA" /> <code codeSystem="local" code=" 200.0550" displayName="OSMOLALITY,CALCULATED" /> < statusCode code="completed" /> <effectiveTime value=& quot;136340249638" /> <value unit="MOSM/KG" xsi: type="PQ" value="279" /> <interpretationCode codeSystem="local" code="N" /> < referenceRange> <observationRange> <text> 261-280</text> </observationRange> </ referenceRange> </observation></component> < component> <observation moodCode="EVN" classCode=" OBS"> <templateId root="2.16.840.1.702190.10.20.22.4.2& quot; /> <id nullFlavor="NA" /> <code codeSystem="local" code="200.0600" displayName="CALCIUM " /> <statusCode code="completed" /> & lt;effectiveTime value="474161341329" /> <value unit=& quot;MG/DL" xsi:type="PQ" value="8.6" /> & lt;interpretationCode codeSystem="local" code="N" /> <referenceRange> <observationRange> & lt;text>8.4-10.2</text> </observationRange> & lt;/referenceRange> </observation> </component> <component> <observation moodCode="EVN" classCode=& quot;OBS"> <templateId root=" 2.16.840.1.034003.10.20.22.4.2" /> <id nullFlavor="NA& quot; /> <code codeSystem="local" code="200.0650& quot; displayName="BILIRUBIN,TOTAL" /> <statusCode code ="completed" /> <effectiveTime value="497813273877 " /> <value unit="MG/DL" xsi:type="PQ" value="0.50" /> <interpretationCode codeSystem=" local" code="N" /> <referenceRange> <observationRange> <text>0.20-1.30</text> & lt;/observationRange> </referenceRange> </ observation> </component> <component> < observation moodCode="EVN" classCode="OBS"> < templateId root="2.16.840.1.474612.10.20.22.4.2" /> < id nullFlavor="NA" /> <code codeSystem="local&quot ; code="200.0950" displayName="ALKALINE PHOSPHATASE" /> <statusCode code="completed" /> < effectiveTime value="003015771813" /> <value unit=&quot ;U/L" xsi:type="PQ" value="83" /> < interpretationCode codeSystem="local" code="N"/> <referenceRange> <observationRange> < text>38-126</text> </observationRange> </ referenceRange> </observation> </component> < component> <observation moodCode="EVN" classCode=" OBS"> <templateId root="2.16.840.1.635142.10.20.22.4.2& quot; /> <id nullFlavor="NA" /> <code codeSystem="local" code="200.1000" displayName="TOTAL PROTEIN" /> <statusCode code="completed" /> <effectiveTime value="285448704802" /> <value unit="G/DL" xsi:type="PQ" value="6.7" />< interpretationCode codeSystem="local" code="N" /> <referenceRange> <observationRange> < text>6.3-8.2</text></observationRange> </ referenceRange> </observation> </component> < component> <observation moodCode="EVN" classCode=" OBS"> <templateId root="2.16.840.1.294532.10.20.22.4.2& quot; /> <id nullFlavor="NA" /> <code codeSystem="local" code="200.1050" displayName="ALBUMIN " /> <statusCode code="completed" /> & lt;effectiveTime value="382518743908" /> <value unit=& quot;G/DL" xsi:type="PQ" value="3.3" /> &lt ;interpretationCode codeSystem="local" code="L" /> <referenceRange> <observationRange> < text>3.5-5.0</text> </observationRange></ referenceRange> </observation> </component> < component> <observation moodCode="EVN" classCode="OBS& quot;> <templateId root="2.16.840.1.629203.10.20.22.4.2&quot ; /> <id nullFlavor="NA" /> <code codeSystem="local" code="200.1100" displayName=" GLOBULIN" /> <statusCode code="completed" /> <effectiveTime value="426927915652" /> < value unit="G/DL" xsi:type="PQ" value="3.4" /> <interpretationCode codeSystem="local" code="N&quot ; /> <referenceRange> <observationRange> <text>2.4-3.6</text> </observationRange> </referenceRange> </observation> </ component> <component> <observation moodCode="EVN& quot; classCode="OBS"> <templateId root=" 2.16.840.1.067776.10.20.22.4.2" /> <id nullFlavor="NA& quot; /> <code codeSystem="local" code="200.1150& quot; displayName="ALBUMIN/GLOBULIN RATIO" /><statusCode code=& quot;completed" /> <effectiveTime value="356493361482& quot; /> <value unit="RATIO" xsi:type="PQ" value="1.0" /> <interpretationCode codeSystem=" local" code="L" /> <referenceRange> <observationRange> <text>1.1-2.2</text> </observationRange> </referenceRange> </ observation> </component> <component> < observation moodCode="EVN" classCode="OBS"> < templateId root="2.16.840.1.634673.10.20.22.4.2" /> <id nullFlavor="NA" /> <code codeSystem="local" code="200.1200" displayName="AST (SGOT)" /> < statusCode code="completed" /> <effectiveTime value=& quot;734600543444" /> <value unit="U/L" xsi:type=& quot;PQ" value="24" /> <interpretationCode codeSystem="local" code="N" /> < referenceRange> <observationRange> <text> 14-36</text> </observationRange> </ referenceRange> </observation> </component> < component> <observation moodCode="EVN" classCode=" OBS"> <templateId root="2.16.840.1.414531.10.20.22.4.2& quot; /> <id nullFlavor="NA" /> <code codeSystem="local" code="200.1250" displayName="ALT ( SGPT)" /> <statusCode code="completed" /> <effectiveTime value="686068436429" /> <value unit="U/L" xsi:type="PQ" value="28" /> <interpretationCode codeSystem="local" code="N" /> <referenceRange> <observationRange><text>9 -52</text> </observationRange> </ referenceRange> </observation> </component> </ organizer> </entry> <entry> <organizer moodCode="EVN " classCode="BATTERY"> <templateId root=" 2.16.840.1.477374.10.20.22.4.1" /> <id nullFlavor="NA&quot ; /><code codeSystem="local" code="LBGM" displayName=& quot;L900.0530" /> <statusCode code="completed" /> <component> <observation moodCode="EVN" classCode= "OBS"> <templateId root=" 2.16.840.1.873161.10.20.22.4.2" /> <id nullFlavor="NA& quot; /> <code codeSystem="local" code="900.0530& quot; displayName="GLUCOMETER" /> <statusCode code=& quot;completed" /> <effectiveTime value="968625830309& quot; /> <value unit="mg/dL" xsi:type="PQ" value="92" /> <interpretationCode codeSystem=" local" code="N" /> <referenceRange> <observationRange> <text>65-110</text> & lt;/observationRange> </referenceRange> </ observation></component> </organizer> </entry> < entry> <organizer moodCode="EVN" classCode="BATTERY&quot ;> <templateId root="2.16.840.1.052600.10.20.22.4.1" /> <id nullFlavor="NA" /> <code codeSystem=" local" code="LBGM" displayName="L900.0530" /> & lt;statusCode code="completed" /> <component> &lt ;observation moodCode="EVN" classCode="OBS"> &lt ;templateId root="2.16.840.1.135544.10.20.22.4.2" /> <id nullFlavor="NA" /> <code codeSystem="local" code="900.0530" displayName="GLUCOMETER" /> < statusCode code="completed" /> <effectiveTime value=& quot;165947047998" /> <value unit="mg/dL" xsi:type ="PQ" value="128" /> <interpretationCode codeSystem="local" code="H" /> < referenceRange> <observationRange> <text> 65-110</text> </observationRange> </ referenceRange> </observation> </component> </ organizer> </entry> <entry> <organizer moodCode="EVN " classCode="BATTERY"> <templateId root=" 2.16.840.1.283552.10.20.22.4.1" /> <id nullFlavor="NA&quot ; /> <code codeSystem="local" code="LBGM" displayName="L900.0530" /> <statusCode code="completed " /> <component> <observation moodCode="EVN& quot; classCode="OBS"> <templateId root=" 2.16.840.1.036985.10.20.22.4.2" /> <id nullFlavor="NA& quot; /> <code codeSystem="local" code="900.0530& quot; displayName="GLUCOMETER" /> <statusCode code=& quot;completed" /> <effectiveTime value="472032941870& quot; /> <value unit="mg/dL" xsi:type="PQ" value="186" /> <interpretationCode codeSystem=" local"code="H" /> <referenceRange> & lt;observationRange> <text>65-110</text> </ observationRange> </referenceRange> </observation&gt ; </component> </organizer> </entry> <entry> <organizer moodCode="EVN" classCode="BATTERY"> <templateId root="2.16.840.1.780694.10.20.22.4.1" /> < id nullFlavor="NA" /> <code codeSystem="local" code="LBGM" displayName="L900.0530"/> < statusCode code="completed" /> <component> < observation moodCode="EVN" classCode="OBS"> < templateId root="2.16.840.1.809983.10.20.22.4.2" /> < id nullFlavor="NA" /> <code codeSystem="local&quot ; code="900.0530" displayName="GLUCOMETER" /> < statusCode code="completed" /> <effectiveTime value=& quot;902853478855" /> <value unit="mg/dL" xsi:type ="PQ" value="134" /> <interpretationCode codeSystem="local" code="H" /> <referenceRange> <observationRange> <text>65-110</text&gt ; </observationRange> </referenceRange> & lt;/observation> </component> </organizer> </entry&gt ; <entry> <organizer moodCode="EVN" classCode=" BATTERY"> <templateId root="2.16.840.1.687750.10.20.22.4.1& quot; /> <id nullFlavor="NA" /> <code codeSystem ="local" code="LBGM" displayName="L900.0530" /&gt ; <statusCode code="completed" /> <component> <observation moodCode="EVN" classCode="OBS"> <templateId root="2.16.840.1.384079.10.20.22.4.2" /> <id nullFlavor="NA" /> <code codeSystem=" local" code="900.0530" displayName="GLUCOMETER" /> <statusCode code="completed" /> < effectiveTime value="804451456340" /> <value unit=&quot ;mg/dL" xsi:type="PQ" value="127" /> < interpretationCode codeSystem="local" code="H" /> <referenceRange> <observationRange> <text&gt ;65-110</text> </observationRange> </ referenceRange> </observation> </component> </ organizer> </entry> <entry> <organizer moodCode="EVN " classCode="BATTERY"> <templateId root=" 2.16.840.1.548271.10.20.22.4.1" /> <id nullFlavor="NA" /& gt; <code codeSystem="local" code="LCBC" displayName ="L100.0050" /> <statusCode code="completed" /&gt ; <component> <observation moodCode="EVN" classCode=& quot;OBS"> <templateId root="2.16.840.1.447883.10.20.22.4.2 " /> <id nullFlavor="NA" /> <code codeSystem="local" code="100.0150" displayName="WBC - WHITE BLOOD COUNT" /> <statusCode code="completed&quot ; /> <effectiveTime value="013424333735" /> <value unit="T/MM3" xsi:type="PQ" value="8.0&quot ; /> <interpretationCode codeSystem="local" code=" N" /> <referenceRange> <observationRange&gt ; <text>4.5-11.0</text> </ observationRange> </referenceRange> </observation> </component> <component> <observation moodCode=& quot;EVN" classCode="OBS"> <templateId root=" 2.16.840.1.392195.10.20.22.4.2" /> <id nullFlavor="NA& quot; /> <code codeSystem="local" code="100.0250& quot; displayName="RED BLOOD COUNT" /> <statusCode code ="completed" /> <effectiveTime value="106353896491 " /> <value unit="M/MM3" xsi:type="PQ" value="4.17" /> <interpretationCode codeSystem=" local" code="N" /> <referenceRange> <observationRange> <text>4.00-5.20</text> </ observationRange> </referenceRange> </observation&gt ; </component> <component> <observation moodCode ="EVN" classCode="OBS"> <templateId root=& quot;2.16.840.1.715926.10.20.22.4.2" /> <id nullFlavor=&quot ;NA" /> <codecodeSystem="local" code=" 100.0300" displayName="HGB - HEMOGLOBIN" /> < statusCode code="completed" /> <effectiveTime value=& quot;384519029089" /> <value unit="GM/DL" xsi:type ="PQ" value="11.2" /> <interpretationCode codeSystem="local" code="L" /> <referenceRange > <observationRange> <text>12-16</text > </observationRange> </referenceRange> </observation> </component> <component> & lt;observation moodCode="EVN" classCode="OBS"> & lt;templateId root="2.16.840.1.701334.10.20.22.4.2" /> &lt ;id nullFlavor="NA" /> <code codeSystem="local& quot; code="100.0400" displayName="HCT - HEMATOCRIT" /> <statusCode code="completed" /> < effectiveTime value="487251547045" /> <value unit="& #37;" xsi:type="PQ" value="35.9" /> < interpretationCode codeSystem="local" code="L" /> <referenceRange> <observationRange> < text>36-46</text></observationRange> </referenceRange > </observation> </component> <component> <observation moodCode="EVN" classCode="OBS"> <templateId root="2.16.840.1.247516.10.20.22.4.2" /> <id nullFlavor="NA" /> <code codeSystem=& quot;local" code="100.0550" displayName="MEAN CORPUSCULAR VOLUME" /> <statusCode code="completed" /> <effectiveTime value="327980323165" /> <value unit="UM3" xsi:type="PQ" value="86.1" /> <interpretationCode codeSystem="local" code="N" /&gt ; <referenceRange><observationRange> <text& gt;80-100</text> </observationRange> </ referenceRange> </observation> </component> < component> <observation moodCode="EVN" classCode=" OBS"> <templateId root="2.16.840.1.959591.10.20.22.4.2& quot; /> <id nullFlavor="NA" /> <code codeSystem="local" code="100.0600" displayName="MEAN CORPUSCULAR HGB" /> <statusCode code="completed" / > <effectiveTime value="507702700115" /> < value unit="UUG" xsi:type="PQ" value="26.9" /> <interpretationCode codeSystem="local" code="N&quot ; /> <referenceRange> <observationRange> <text>26-34</text> </observationRange> </referenceRange> </observation> </component& gt; <component> <observation moodCode="EVN" classCode="OBS"> <templateId root=" 2.16.840.1.002545.10.20.22.4.2" /> <id nullFlavor="NA& quot; /><code codeSystem="local" code="100.0650" displayName="MEAN CORPUSCULAR HGB CONC([facility]" /> < statusCode code="completed" /> <effectiveTime value=& quot;218867399117" /> <value unit="GM/DL" xsi:type ="PQ" value="31.2" /> <interpretationCode codeSystem="local" code="N" /> < referenceRange> <observationRange> <text>31-37</ text> </observationRange> </referenceRange> </observation> </component> <component> <observationmoodCode="EVN" classCode="OBS"> <templateId root="2.16.840.1.413202.10.20.22.4.2" /> <id nullFlavor="NA" /> <code codeSystem=" local" code="100.0750" displayName="RDW STANDARD DEVIATION& quot; /> <statusCode code="completed" /> & lt;effectiveTime value="329006402467" /> <value unit=& quot;FL" xsi:type="PQ" value="49.1" /> < interpretationCode codeSystem="local" code="N" /> <referenceRange> <observationRange> < text>36.9-50.2</text> </observationRange> &lt ;/referenceRange> </observation> </component> & lt;component> <observation moodCode="EVN" classCode=&quot ;OBS"> <templateId root="2.16.840.1.555952.10.20.22.4.2 " /> <id nullFlavor="NA" /> <code codeSystem="local" code="100.0850" displayName="PLT - PLATELET COUNT" /> <statusCode code="completed" /& gt; <effectiveTime value="510826301060" /> &lt ;value unit="T/MM3" xsi:type="PQ" value="276" /&gt ; <interpretationCode codeSystem="local" code="N" /& gt; <referenceRange> <observationRange> <text>130-400</text> </observationRange> & lt;/referenceRange> </observation> </component> <component> <observation moodCode="EVN" classCode=& quot;OBS"> <templateId root=" 2.16.840.1.632130.10.20.22.4.2" /> <id nullFlavor="NA" /&gt ; <code codeSystem="local" code="100.0950" displayName="MEAN PLATELET VOLUME" /> <statusCode code= "completed" /> <effectiveTime value="002126708980& quot; /> <value unit="UM3" xsi:type="PQ" value="10.5" /> <interpretationCode codeSystem=" local" code="N" /> <referenceRange> < observationRange> <text>9.4-12.4</text> & lt;/observationRange> </referenceRange> </ observation> </component> <component> < observation moodCode="EVN" classCode="OBS"> < templateId root="2.16.840.1.997648.10.20.22.4.2" /> < id nullFlavor="NA" /> <code codeSystem="local&quot ; code="100.1050" displayName="NEUTROPHILS % (AUTO)&quot ; /> <statusCode code="completed"/> < effectiveTime value="569857692850" /> <value unit=&quot ;%" xsi:type="PQ" value="68.5" /> & lt;interpretationCode codeSystem="local" code="H" /> <referenceRange> <observationRange> & lt;text>33-66</text> </observationRange> </ referenceRange> </observation> </component> < component> <observation moodCode="EVN" classCode=" OBS"> <templateId root="2.16.840.1.091706.10.20.22.4.2& quot; /> <id nullFlavor="NA" /> <code codeSystem="local" code="100.1100" displayName=" LYMPHOCYTES % (AUTO)" /> <statusCode code=" completed" /> <effectiveTime value="627758562350" /&gt ; <value unit="%" xsi:type="PQ" value=& quot;21.4" /> <interpretationCode codeSystem="local& quot; code="L" /> <referenceRange> < observationRange> <text>23-45</text> < /observationRange> </referenceRange> </observation& gt; </component> <component> <observation moodCode=& quot;EVN" classCode="OBS"> <templateId root=" 2.16.840.1.943228.10.20.22.4.2" /> <id nullFlavor="NA& quot; /> <code codeSystem="local" code="100.1150& quot; displayName="MONOCYTES % (AUTO)" /> < statusCode code="completed" /> <effectiveTime value=& quot;257975705894" /> <value unit="%" xsi: type="PQ" value="6.6" /> <interpretationCode codeSystem="local" code="N" /> < referenceRange> <observationRange> <text>0- 9.0</text> </observationRange> </ referenceRange> </observation> </component> < component> <observation moodCode="EVN" classCode=" OBS"> <templateId root="2.16.840.1.044653.10.20.22.4.2& quot; /> <id nullFlavor="NA" /> <code codeSystem="local" code="100.1200" displayName=" EOSINOPHILS % (AUTO)" /> <statusCode code=" completed" /> <effectiveTimevalue="446892466785" / > <value unit="%" xsi:type="PQ" value ="2.9" /> <interpretationCode codeSystem="local& quot; code="N" /> <referenceRange> < observationRange> <text>0-4</text> </ observationRange> </referenceRange> </observation> </component> <component> <observation moodCode=& quot;EVN" classCode="OBS"> <templateId root=" 2.16.840.1.935952.10.20.22.4.2" /> <id nullFlavor="NA& quot; /> <code codeSystem="local" code="100.1250& quot; displayName="BASOPHILS % (AUTO)" /> < statusCode code="completed" /> <effectiveTime value=& quot;756922810096" /> <value unit="%" xsi: type="PQ" value="0.3" /> <interpretationCode codeSystem="local" code="N" /> < referenceRange> <observationRange> <text> 0-2</text> </observationRange> </ referenceRange> </observation> </component> < component> <observation moodCode="EVN" classCode=" OBS"> <templateId root="216.840.1.192485.10.20.22.4.2& quot; /> <id nullFlavor="NA" /> <code codeSystem="local" code="100.1275" displayName=" IMMATURE GRANULOCYTE % (AUTO)" /> <statusCode code=& quot;completed" /> <effectiveTime value="562292306705& quot; /> <value unit="%" xsi:type="PQ&quot ; value="0.3" /> <interpretationCode codeSystem=" local" code="N" /> <referenceRange> & lt;observationRange> <text>0.0-0.5</text> </observationRange> </referenceRange> </ observation> </component> <component> < observation moodCode="EVN" classCode="OBS"> < templateId root="2.16.840.1.379566.10.20.22.4.2" /> < id nullFlavor="NA" /> <code codeSystem="local&quot ; code="100.1300" displayName="NEUTROPHILS # (AUTO)" /> <statusCode code="completed" /> < effectiveTime value="465186679228" /> <value unit=&quot ;T/MM3" xsi:type="PQ" value="5.5" /> < interpretationCode codeSystem="local" code="N" /> <referenceRange> <observationRange> < text>1.8-7.7</text> </observationRange> </ referenceRange> </observation> </component> < component> <observation moodCode="EVN" classCode=" OBS"> <templateId root="2.16.840.1.224028.10.20.22.4.2& quot; /> <id nullFlavor="NA" /> <code codeSystem="local" code="100.1350" displayName=" LYMPHOCYTES # (AUTO)" /> <statusCode code="completed& quot; /> <effectiveTime value="608853705981" /> <value unit="T/MM3" xsi:type="PQ" value="1.7& quot; /> <interpretationCode codeSystem="local" code=& quot;N" /> <referenceRange> <observationRange> <text>1-4.8</text> </observationRange> </referenceRange> </observation> </component& gt; <component> <observation moodCode="EVN" classCode="OBS"> <templateId root=" 2.16.840.1.526999.10.20.22.4.2" /> <id nullFlavor="NA& quot; /> <code codeSystem="local" code="100.1400& quot; displayName="MONOCYTES # (AUTO)" /> <statusCode code="completed" /> <effectiveTime value="290345620199&quot ; /> <value unit="T/MM3" xsi:type="PQ" value= "0.5" /> <interpretationCode codeSystem="local& quot; code="N" /> <referenceRange> < observationRange> <text>0-0.8</text> < /observationRange> </referenceRange> </observation& gt; </component> <component> <observation moodCode="EVN" classCode="OBS"> <templateId root="2.16.840.1.751997.10.20.22.4.2" /> <id nullFlavor ="NA" /> <code codeSystem="local" code=" 100.1450" displayName="EOSINOPHILS # (AUTO)" /> < statusCode code="completed" /> <effectiveTime value=& quot;835156950829" /> <value unit="T/MM3" xsi:type ="PQ" value="0.2" /> <interpretationCode codeSystem="local" code="N" /> < referenceRange> <observationRange> <text> 0-0.5</text> </observationRange> </ referenceRange> </observation> </component> < component> <observation moodCode="EVN" classCode=" OBS"> <templateId root="2.16.840.1.921862.10.20.22.4.2& quot; /> <id nullFlavor="NA" /> <code codeSystem="local" code="100.1500" displayName=" BASOPHILS # (AUTO)" /> <statusCode code="completed&quot ; /> <effectiveTime value="875501925399" /> <value unit="T/MM3" xsi:type="PQ" value="0.0&quot ; /> <interpretationCode codeSystem="local" code=" N" /> <referenceRange> <observationRange&gt ; <text>0-0.2</text> </observationRange> </referenceRange> </observation> </component > <component> <observation moodCode="EVN" classCode="OBS"> <templateId root=" 2.16.840.1.608188.10.20.22.4.2" /> <id nullFlavor="NA" / > <code codeSystem="local" code="100.1525" displayName="IMMATURE GRANULOCYTE # (AUTO)" /> < statusCode code="completed" /> <effectiveTime value=& quot;511373509093" /> <value unit="T/MM3" xsi:type=" PQ" value="0.02" /> <interpretationCode codeSystem ="local" code="N" /> <referenceRange> <observationRange> <text>0.00-0.03</text&gt ; </observationRange> </referenceRange> & lt;/observation> </component> </organizer> </entry&gt ; <entry> <organizer moodCode="EVN" classCode=" BATTERY"> <templateId root="2.16.840.1.664401.10.20.22.4.1& quot; /> <id nullFlavor="NA" /> <code codeSystem ="local" code="LCMP" displayName="L200.0020" /&gt ; <statusCode code="completed" /> <component> <observation moodCode="EVN" classCode="OBS"> <templateId root="2.16.840.1.794638.10.20.22.4.2" /> <id nullFlavor="NA" /> <code codeSystem=" local" code="200.0097" displayName="ICTERUS" /> <statusCode code="completed" /> < effectiveTime value="243724211536" /> <value unit=&quot ;" xsi:type="PQ" value="< 2" /> < interpretationCode codeSystem="local" code="N" /> <referenceRange> <observationRange> < text>0-7</text> </observationRange> </ referenceRange> </observation> </component> < component> <observation moodCode="EVN" classCode="OBS& quot;> <templateId root="2.16.840.1.611922.10.20.22.4.2&quot ; /> <id nullFlavor="NA" /> <code codeSystem="local" code="200.0098" displayName=" HEMOLYSIS" /> <statusCode code="completed" /> <effectiveTime value="766464094117" /> < value unit="" xsi:type="PQ" value="< 15" /& gt; <interpretationCode codeSystem="local" code="N& quot; /> <referenceRange> <observationRange> <text>0-25</text> </observationRange&gt ; </referenceRange> </observation> </ component> <component> <observation moodCode="EVN& quot; classCode="OBS"> <templateId root=" 2.16.840.1.180803.10.20.22.4.2" /> <id nullFlavor="NA& quot; /> <code codeSystem="local" code="200.0099& quot; displayName="TURBIDITY" /> <statusCode code=&quot ;completed" /> <effectiveTime value="576807859854&quot ; /> <value unit="" xsi:type="PQ" value="& amp;lt; 20" /> <interpretationCode codeSystem="local" code="N" /> <referenceRange> < observationRange> <text>0-20</text> </ observationRange> </referenceRange> </observation&gt ; </component> <component> <observation moodCode ="EVN" classCode="OBS"> <templateId root=& quot;2.16.840.1.226891.10.20.22.4.2" /> <id nullFlavor=&quot ;NA" /> <code codeSystem="local" code=" 200.0100" displayName="SODIUM" /> <statusCode code ="completed" /> <effectiveTime value="[id number] " /> <value unit="MEQ/L" xsi:type="PQ" value="146" /> <interpretationCode codeSystem=" local" code="H" /> <referenceRange> <observationRange> <text>134-144</text> </observationRange> </referenceRange> </observation&gt ; </component> <component> <observation moodCode=& quot;EVN" classCode="OBS"> <templateIdroot=" [id number]" /> <id nullFlavor="NA& quot; /> <code codeSystem="local" code="200.0150& quot; displayName="POTASSIUM" /> <statusCode code=&quot ;completed" /> <effectiveTime value="636076117155&quot ; /> <value unit="MEQ/L" xsi:type="PQ" value= "4.3" /> <interpretationCode codeSystem="local& quot; code="N" /> <referenceRange> < observationRange> <text>3.6-5</text> < /observationRange> </referenceRange> </observation& gt; </component> <component> <observation moodCode="EVN" classCode="OBS"> <templateId root="2.16.840.1.330351.10.20.22.4.2" /> <id nullFlavor ="NA" /> <code codeSystem="local" code=" 200.0200" displayName="CHLORIDE" /> <statusCode code="completed" /> <effectiveTime value=" 783718001750" /> <value unit="MEQ/L" xsi:type=" PQ" value="103" /><interpretationCode codeSystem=" local" code="N" /> <referenceRange> <observationRange> <text>98-107</text> </observationRange> </referenceRange> </ observation> </component> <component> < observation moodCode="EVN" classCode="OBS"> < templateId root="2.16.840.1.898889.10.20.22.4.2" /> < id nullFlavor="NA" /> <code codeSystem="local&quot ; code="200.0250" displayName="CO2 - CARBON DIOXIDE" /> <statusCode code="completed" /> < effectiveTime value="509244128338" /> <value unit=&quot ;MEQ/L" xsi:type="PQ" value="29" /> < interpretationCodecodeSystem="local" code="N" /> <referenceRange> <observationRange> < text>22-30</text> </observationRange> </ referenceRange> </observation> </component> < component> <observation moodCode="EVN" classCode=" OBS"> <templateId root="2.16.840.1.109850.10.20.22.4.2& quot; /> <id nullFlavor="NA" /> <code codeSystem="local" code="200.0300" displayName="ANION GAP" /> <statusCode code="completed" /> <effectiveTime value="702132325661" /> <value unit="MEQ/L" xsi:type="PQ" value="14" /> <interpretationCode codeSystem="local" code="N" /&gt ; <referenceRange> <observationRange> <text>5-15</text> </observationRange> </referenceRange> </observation> </component> & lt;component> <observation moodCode="EVN" classCode=&quot ;OBS"> <templateId root="2.16.840.1.180596.10.20.22.4.2 " /> <id nullFlavor="NA" /> <code codeSystem="local" code="200.0350" displayName="BLOOD UREA NITROGEN" /> <statusCode code="completed" /> <effectiveTime value="446359998539" /> < value unit="MG/DL" xsi:type="PQ" value="26.0" /&gt ; <interpretationCode codeSystem="local" code="H&quot ; /> <referenceRange> <observationRange> <text>7-17</text> </observationRange> </referenceRange> </observation> </component> <component> <observation moodCode="EVN" classCode=& quot;OBS"> <templateId root=" 2.16.840.1.329557.10.20.22.4.2" /> <id nullFlavor="NA& quot; /> <code codeSystem="local" code="200.0400& quot; displayName="CREATININE" /> <statusCode code=& quot;completed" /> <effectiveTime value="676715240148& quot; /> <value unit="MG/DL" xsi:type="PQ" value="0.7" /> <interpretationCode codeSystem=" local" code="N" /> <referenceRange> < observationRange> <text>0.7-1.2</text> & lt;/observationRange> </referenceRange> </ observation> </component><component> <observation moodCode="EVN" classCode="OBS"> <templateId root=& quot;2.16.840.1.379377.10.20.22.4.2" /> <id nullFlavor=&quot ;NA" /> <code codeSystem="local" code=" 200.0450" displayName="BUN/CREATININE RATIO" /> < statusCode code="completed" /> <effectiveTime value=&quot ;655395403011" /> <value unit="RATIO" xsi:type=& quot;PQ" value="37" /> <interpretationCode codeSystem="local" code="H" /> < referenceRange> <observationRange> <text> 6-26</text> </observationRange> </ referenceRange> </observation> </component> < component><observation moodCode="EVN" classCode="OBS"& gt; <templateId root="2.16.840.1.368590.10.20.22.4.2" /&gt ; <id nullFlavor="NA" /> <code codeSystem=" local" code="200.0475" displayName="GLOMERULAR FILTRATION RATE" /> <statusCode code="completed" /> <effectiveTime value="824514121526" /> <value unit="" xsi:type="PQ" value="82" /> & lt;interpretationCode codeSystem="local" code="N" /> <referenceRange> <observationRange> & lt;text /> </observationRange> </referenceRange& gt; </observation> </component> <component> <observation moodCode="EVN" classCode="OBS"> <templateId root="2.16.840.1.704684.10.20.22.4.2" /> <id nullFlavor="NA" /> <code codeSystem=&quot ;local" code="200.0500" displayName="GLUCOSE" /> <statusCode code="completed" /> < effectiveTime value="713114458367" /> <value unit=&quot ;MG/DL" xsi:type="PQ" value="143" /> < interpretationCode codeSystem="local" code="H" /> <referenceRange> <observationRange> <text& gt;65-110</text> </observationRange> </ referenceRange> </observation> </component> < component> <observation moodCode="EVN" classCode=" OBS"> <templateId root="2.16.840.1.016726.10.20.22.4.2&quot ; /> <id nullFlavor="NA" /> <code codeSystem="local" code="200.0550" displayName=" OSMOLALITY,CALCULATED" /> <statusCode code="completed& quot; /> <effectiveTime value="933983421284" /> <value unit="MOSM/KG" xsi:type="PQ" value="288 " /> <interpretationCode codeSystem="local" code=& quot;H" /> <referenceRange> < observationRange> <text>261-280</text> & lt;/observationRange> </referenceRange> </observation> </component> <component> <observation moodCode= "EVN" classCode="OBS"> <templateId root=&quot ;2.16.840.1.084708.10.20.22.4.2" /> <id nullFlavor="NA& quot; /> <code codeSystem="local" code="200.0600& quot; displayName="CALCIUM" /> <statusCode code=" completed" /> <effectiveTime value="168287672692" /> <value unit="MG/DL" xsi:type="PQ" value=& quot;9.3" /> <interpretationCode codeSystem="local&quot ; code="N" /> <referenceRange> < observationRange> <text>8.4-10.2</text> & lt;/observationRange> </referenceRange> </observation> </component> <component> <observation moodCode= "EVN" classCode="OBS"> <templateId root=&quot ;2.16.840.1.680697.10.20.22.4.2" /> <id nullFlavor="NA& quot; /> <code codeSystem="local" code="200.0650& quot; displayName="BILIRUBIN,TOTAL" /> <statusCode code ="completed" /> <effectiveTime value="662746778066 " /> <value unit="MG/DL" xsi:type="PQ" value="0.50" /> <interpretationCode codeSystem=" local" code="N" /> <referenceRange> <observationRange> <text>0.20-1.30</text> </observationRange> </referenceRange> </ observation> </component> <component> < observation moodCode="EVN" classCode="OBS"> < templateId root="2.16.840.1.643376.10.20.22.4.2" /> < id nullFlavor="NA" /> <code codeSystem="local&quot ; code="200.0950" displayName="ALKALINE PHOSPHATASE" /> <statusCode code="completed" /> < effectiveTime value="221283275722" /><value unit="U/L&quot ; xsi:type="PQ" value="87" /> < interpretationCode codeSystem="local" code="N" /> <referenceRange> <observationRange> <text >38-126</text> </observationRange> </ referenceRange> </observation> </component> < component> <observation moodCode="EVN" classCode=" OBS"> <templateId root="2.16.840.1.581120.10.20.22.4.2& quot; /> <id nullFlavor="NA" /> <code codeSystem="local" code="200.1000" displayName="TOTAL PROTEIN" /> <statusCode code="completed" /> <effectiveTime value="492328588210" /> <value unit ="G/DL"xsi:type="PQ" value="7.8" /> & lt;interpretationCode codeSystem="local" code="N" /> <referenceRange> <observationRange> & lt;text>6.3-8.2</text> </observationRange> & lt;/referenceRange> </observation> </component> <component><observation moodCode="EVN" classCode="OBS& quot;> <templateId root="2.16.840.1.946423.10.20.22.4.2&quot ; /> <id nullFlavor="NA" /> <code codeSystem=& quot;local" code="200.1050" displayName="ALBUMIN" /&gt ; <statusCode code="completed" /> < effectiveTime value="295283890729" /> <value unit=&quot ;G/DL" xsi:type="PQ" value="4.2" /> < interpretationCode codeSystem="local" code="N" /> <referenceRange> <observationRange> < text>3.5-5.0</text> </observationRange> </ referenceRange> </observation> </component> < component> <observation moodCode="EVN" classCode=" OBS"> <templateId root="2.16.840.1.583624.10.20.22.4.2& quot; /> <id nullFlavor="NA" /> <code codeSystem="local" code="200.1100" displayName=" GLOBULIN" /> <statusCode code="completed" /> <effectiveTime value="435934025590" /><value unit=& quot;G/DL" xsi:type="PQ" value="3.6" /> &lt ;interpretationCode codeSystem="local" code="N" /> <referenceRange> <observationRange> < text>2.4-3.6</text> </observationRange> </ referenceRange> </observation> </component> < component> <observation moodCode="EVN" classCode=" OBS"> <templateId root="2.16.840.1.006752.10.20.22.4.2& quot; /> <id nullFlavor="NA" /> <code codeSystem="local" code="200.1150" displayName="ALBUMIN /GLOBULIN RATIO" /> <statusCode code="completed" / > <effectiveTime value="094845850197" /> & lt;value unit="RATIO" xsi:type="PQ" value="1.2" /& gt; <interpretationCode codeSystem="local" code="N& quot; /> <referenceRange> <observationRange> <text>1.1-2.2</text> </observationRange& gt; </referenceRange> </observation> </ component> <component> <observation moodCode="EVN& quot; classCode="OBS"> <templateId root=" 2.16.840.1.283797.10.20.22.4.2" /> <id nullFlavor="NA& quot; /> <code codeSystem="local" code="200.1200& quot; displayName="AST (SGOT)" /> <statusCode code=& quot;completed" /> <effectiveTime value="899968762205& quot; /> <value unit="U/L" xsi:type="PQ" value="20" /> <interpretationCode codeSystem=" local" code="N" /> <referenceRange> <observationRange> <text>14-36</text> </observationRange> </referenceRange> </observation&gt ; </component> <component> <observation moodCode ="EVN" classCode="OBS"> <templateId root=& quot;2.16.840.1.072776.10.20.22.4.2" /> <id nullFlavor=&quot ;NA" /> <code codeSystem="local" code=" 200.1250" displayName="ALT (SGPT)" /> <statusCode code="completed" /> <effectiveTime value=" 030760069090" /> <value unit="U/L" xsi:type=" PQ" value="35" /> <interpretationCode codeSystem=" local" code="N" /> <referenceRange> <observationRange> <text>9-52</text> </ observationRange> </referenceRange> </observation&gt ; </component> </organizer> </entry> <entry> <organizer moodCode="EVN" classCode="BATTERY"> <templateId root="2.16.840.1.833459.10.20.22.4.1" /> < id nullFlavor="NA" /> <code codeSystem="local" code="LCRP" displayName="L200.1860" /> < statusCode code="completed" /> <component> < observation moodCode="EVN" classCode="OBS"> < templateId root="2.16.840.1.998145.10.20.22.4.2" /> < id nullFlavor="NA" /> <code codeSystem="local&quot ; code="200.1860" displayName="C-REACTIVE PROTEIN" /> <statusCode code="completed" /> < effectiveTime value="718989653502" /> <value unit=&quot ;MG/L" xsi:type="PQ" value="18.7" /> < interpretationCode codeSystem="local" code="H" /> <referenceRange> <observationRange> < text>0-9</text> </observationRange> </ referenceRange> </observation> </component> </ organizer> </entry> <entry> <organizer moodCode="EVN " classCode="BATTERY"> <templateId root=" 2.16.840.1.489519.10.20.22.4.1" /> <id nullFlavor="NA&quot ; /> <code codeSystem="local" code="LESR-A" displayName="L750.8263" /> <statusCode code="completed " /> <component> <observation moodCode="EVN& quot; classCode="OBS"> <templateId root=" 2.16.840.1.191405.10.20.22.4.2" /> <id nullFlavor="NA& quot; /> <code codeSystem="local" code="750.8263& quot; displayName="ESR - SEDIMENTATION RATE - AMS" /> < statusCode code="completed" /> <effectiveTime value=& quot;752546531812" /> <value unit="mm/h" xsi:type= "PQ" value="90" /> <interpretationCode codeSystem="local" code="Doran" /> < referenceRange> <observationRange> <text> 0-23</text> </observationRange> </ referenceRange> </observation> </component> </ organizer> </entry> <entry> <organizer moodCode="EVN " classCode="BATTERY"> <templateId root=" 2.16.840.1.997517.10..22.4.1" /> <id nullFlavor="NA&quot ; /> <code codeSystem="local" code="LESR-A" displayName="L750.8263" /> <statusCode code="completed " /> <component> <observation moodCode="EVN&quot ; classCode="OBS"> <templateIdroot=" 2.16.840.1.438869.10..22.4.2" /> <id nullFlavor="NA& quot; /> <code codeSystem="local" code="903.9025& quot; displayName="ESR - Sedimentation Rate - AMS" /> < statusCode code="completed" /> <effectiveTime value=& quot;905817072775" /> <value unit="mm/h" xsi:type= "PQ" value="99" /> <referenceRange> <observationRange> <text>0-23</text> </observationRange></referenceRange> </observation& gt; </component> </organizer> </entry> <entry&gt ; <organizer moodCode="EVN" classCode="BATTERY"> <templateId root="2.16.840.1.421452.10.20.22.4.1" /> & lt;id nullFlavor="NA" /> <code codeSystem="local&quot ; code="LUAMIC-MK" displayName="L200.0052" /> < statusCode code="completed" /> <component> < observation moodCode="EVN" classCode="OBS"> < templateId root="2.16.840.1.211269.10.20.22.4.2" /> < id nullFlavor="NA"/> <code codeSystem="local&quot ; code="200.0152" displayName="Specimen Type, Urine - MK" /& gt; <statusCode code="completed" /> < effectiveTime value="996948026658" /> <value unit=&quot ;" xsi:type="PQ" value="Urine, Clean Catch" /> <referenceRange> <observationRange> &lt ;text>NRG</text> </observationRange> </ referenceRange> </observation> </component> < component> <observation moodCode="EVN" classCode=" OBS"> <templateId root="2.16.840.1.099282.10.20.22.4.2& quot; /> <id nullFlavor="NA" /> <code codeSystem="local" code="200.0202" displayName="Color, Urine - MK" /> <statusCode code="completed" /> <effectiveTime value="456838934925" /> < value unit="" xsi:type="PQ" value="YELLOW" /> <referenceRange> <observationRange> <text>YELLOW</text> </observationRange> </referenceRange> </observation> </component> <component> <observation moodCode="EVN" classCode=" OBS"> <templateId root="2.16.840.1.288680.10.20.22.4.2& quot; /> <id nullFlavor="NA" /> <code codeSystem="local" code="200.0302" displayName="Clarity ,Urine - MK" /> <statusCode code="completed" /&gt ; <effectiveTime value="627952651579" /> < value unit="" xsi:type="PQ"value="SL CLOUDY" /&gt ; <referenceRange> <observationRange> <text>NRG</text> </observationRange> & lt;/referenceRange> </observation> </component> <component> <observation moodCode="EVN" classCode=& quot;OBS"> <templateId root=" 2.16.840.1.720489.10.20.22.4.2" /> <id nullFlavor="NA& quot; /> <code codeSystem="local" code="200.0327& quot; displayName="Specific [place],Urine - MK" /> < statusCode code="completed" /> <effectiveTime value=& quot;846564451045" /> <value unit="" xsi:type=& quot;PQ" value="1.015" /> <referenceRange> <observationRange> <text>1.015-1.025</text> </observationRange> </referenceRange> </ observation> </component> <component> < observation moodCode="EVN" classCode="OBS"> < templateId root="2.16.840.1.329804.10.20.22.4.2" /> < id nullFlavor="NA" /> <code codeSystem="local&quot ; code="200.0352" displayName="PH,Urine - MK"/> <statusCode code="completed" /> <effectiveTime value ="456624964252" /> <value unit="" xsi:type=& quot;PQ" value="5.5" /> <referenceRange> <observationRange> <text>5.0-8.0</text> </observationRange> </referenceRange> </ observation> </component> <component> < observation moodCode="EVN" classCode="OBS"> < templateId root="2.16.840.1.339062.10.20.22.4.2" /> < id nullFlavor="NA" /> <code codeSystem="local&quot ; code="200.0412" displayName="Leukocyte Esterase,Urine - MK&quot ; /> <statusCode code="completed" /> < effectiveTime value="560459499978" /> <value unit=&quot ;" xsi:type="PQ" value="3+" /> < referenceRange> <observationRange> <text> NEGATIVE</text> </observationRange> </ referenceRange> </observation> </component> < component> <observation moodCode="EVN" classCode=" OBS"> <templateId root="2.16.840.1.307627.10.20.22.4.2& quot; /> <id nullFlavor="NA" /> <code codeSystem="local" code="200.0422" displayName="Nitrate ,Urine - MK" /><statusCode code="completed" /> <effectiveTime value="097612439382" /> <value unit=& quot;" xsi:type="PQ" value="POSITIVE" /> & lt;referenceRange> <observationRange> <text& gt;NEGATIVE</text> </observationRange> </ referenceRange> </observation> </component> < component> <observation moodCode="EVN" classCode=" OBS"> <templateId root="2.16.840.1.141302.10.20.22.4.2& quot; /> <id nullFlavor="NA" /> <code codeSystem="local" code="200.0452" displayName="Protein ,Urine - Dipstick - MK" /> <statusCode code="completed" /> <effectiveTime value="353327587449" /> & lt;value unit="" xsi:type="PQ" value="NEGATIVE" /& gt; <referenceRange> <observationRange> <text>NEGATIVE</text> </observationRange> </referenceRange> </observation> </component& gt; <component> <observation moodCode="EVN" classCode="OBS"> <templateId root=" 2.16.840.1.129967.10.20.22.4.2" /> <id nullFlavor="NA& quot; /> <code codeSystem="local" code="200.0502& quot; displayName="Glucose,Urine - Dipstick - MK" /> < statusCode code="completed" /> <effectiveTime value=& quot;977553076848" /> <value unit="" xsi:type=& quot;PQ" value="NEGATIVE" /> <referenceRange> <observationRange> <text>NEGATIVE</text& gt; </observationRange> </referenceRange> </ observation> </component> <component> < observation moodCode="EVN" classCode="OBS"> < templateId root="2.16.840.1.183120.10.20.22.4.2" /> < id nullFlavor="NA" /> <code codeSystem="local&quot ; code="200.0602" displayName="Ketones,Urine - Dipstick - MK&quot ; /> <statusCode code="completed" /> < effectiveTime value="184509973493" /> <value unit=&quot ;" xsi:type="PQ" value="NEGATIVE" /> < referenceRange> <observationRange> <text> NEGATIVE</text> </observationRange> </ referenceRange> </observation> </component> < component> <observation moodCode="EVN" classCode=" OBS"> <templateId root="2.16.840.1.561664.10.20.22.4.2& quot; /> <id nullFlavor="NA" /> <code codeSystem="local" code="200.0742" displayName=" Urobilinogen,Urine - MK" /> <statusCode code="completed " /> <effectiveTime value="958009958724" /> <value unit="EU/DL" xsi:type="PQ" value="0.2& quot; /> <referenceRange> <observationRange> <text>NORMAL</text> </observationRange& gt; </referenceRange> </observation> </component& gt; <component> <observation moodCode="EVN" classCode="OBS"> <templateId root=" 2.16.840.1.222169.10.20.22.4.2" /> <id nullFlavor="NA& quot; /> <code codeSystem="local" code="200.0752& quot; displayName="Bilirubin,Urine - Dipstick -MK" /> < statusCode code="completed" /> <effectiveTime value=& quot;555923503804" /> <value unit="" xsi:type=& quot;PQ" value="NEGATIVE" /> <referenceRange> <observationRange> <text>NEGATIVE</text& gt; </observationRange> </referenceRange> </observation> </component> <component> < observation moodCode="EVN" classCode="OBS"> < templateId root="2.16.840.1.234017.10.20.22.4.2" /> < id nullFlavor="NA" /> <code codeSystem="local&quot ; code="200.0827" displayName="Occult Blood,Ylsie-Sahjeamq-MF& quot; /> <statusCode code="completed" /> & lt;effectiveTime value="693637643714" /> <value unit=& quot;" xsi:type="PQ" value="NEGATIVE" /> & lt;referenceRange> <observationRange> <text>NEGATIVE& lt;/text> </observationRange> </referenceRange& gt; </observation> </component> <component> <observation moodCode="EVN" classCode="OBS"> <templateId root="2.16.840.1.169368.10..22.4.2" /> <id nullFlavor="NA" /> <code codeSystem=&quot ;local" code="200.1002" displayName="RBC,Urine - MK" /& gt; <statusCode code="completed" /> < effectiveTime value="400817768609" /> <value unit=&quot ;/HPF" xsi:type="PQ" value="10-20" /> < referenceRange> <observationRange> <text> 0-3</text> </observationRange> </ referenceRange> </observation> </component> < component> <observation moodCode="EVN" classCode=" OBS"> <templateId root="2.16.840.1.505333.10..22.4.2& quot; /> <id nullFlavor="NA" /> <code codeSystem="local" code="200.1052" displayName="WBC, Urine - MK" /> <statusCode code="completed" /> <effectiveTime value="147119007324" /> < value unit="/HPF" xsi:type="PQ" value="50-200" /& gt; <referenceRange> <observationRange> <text>0-5</text> </observationRange> & lt;/referenceRange> </observation> </component> <component> <observation moodCode="EVN" classCode=& quot;OBS"> <templateId root=" 2.16.840.1.183155.10.20.22.4.2" /> <id nullFlavor="NA& quot; /> <code codeSystem="local" code="200.1102& quot; displayName="WBC Clumps,Urine - MK" /> < statusCodecode="completed" /> <effectiveTime value=& quot;056913675496" /> <value unit="" xsi:type="PQ& quot; value="None Seen" /> <referenceRange> <observationRange> <text>NRG</text> </observationRange> </referenceRange> </ observation> </component> <component> < observation moodCode="EVN" classCode="OBS"> < templateId root="2.16.840.1.538164.10..22.4.2" /> <id nullFlavor="NA" /> <code codeSystem="local" code="200.1152" displayName="Squamous Epithelial Cell,Ur-MK&quot ; /> <statusCode code="completed" /> < effectiveTime value="114890486475" /> <value unit="& quot; xsi:type="PQ" value="10-20" /> < referenceRange> <observationRange> <text> NRG</text> </observationRange> </referenceRange&gt ; </observation> </component> <component> <observation moodCode="EVN" classCode="OBS"> <templateId root="2.16.840.1.505572.10..22.4.2" /> &lt ;id nullFlavor="NA" /> <code codeSystem="local& quot; code="200.1202" displayName="Transitional Epi Cells,Ur-MK& quot; /> <statusCode code="completed" /> & lt;effectiveTime value="525239655919" /> <value unit="/HPF& quot; xsi:type="PQ" value="None seen" /> < referenceRange> <observationRange> <text> NRG</text> </observationRange> </referenceRange > </observation> </component> <component> <observation moodCode="EVN" classCode="OBS"> <templateId root="2.16.840.1.042500.10.20.22.4.2" /> & lt;id nullFlavor="NA" /> <code codeSystem="local& quot; code="200.1252" displayName="Renal Epithelial Cells,Ur-MK& quot; /> <statusCode code="completed" /> & lt;effectiveTime value="540999779429" /> <value unit="/ HPF" xsi:type="PQ" value="None seen" /> < referenceRange> <observationRange> <text> NRG</text> </observationRange> </ referenceRange> </observation> </component> < component> <observation moodCode="EVN" classCode=" OBS"> <templateId root="2.16.840.1.315360.10.20.22.4.2& quot; /> <id nullFlavor="NA" /> <code codeSystem="local" code="200.1302" displayName=" Calcium Carbonate Cryst,Ur-MK" /> <statusCode code=" completed" /> <effectiveTime value="384929085602" /> <value unit="" xsi:type="PQ" value=" None seen" /> <referenceRange> <observationRange&gt ; <text>NRG</text> </observationRange&gt ; </referenceRange> </observation> </component > <component> <observation moodCode="EVN" classCode="OBS"> <templateId root=" 2.16.840.1.898936.10.20.22.4.2" /> <id nullFlavor="NA& quot; /> <code codeSystem="local" code="200.1352& quot; displayName="Calcium Phosphate Cryst,Ur-MK" /> < statusCode code="completed" /> <effectiveTime value=& quot;179382995378" /> <value unit="" xsi:type=" PQ" value="None seen" /> <referenceRange> & lt;observationRange> <text>NRG</text> &lt ;/observationRange> </referenceRange> </observation& gt; </component> <component> <observation moodCode ="EVN" classCode="OBS"> <templateId root=& quot;2.16.840.1.790191.10.20.22.4.2" /> <id nullFlavor=" NA" /> <code codeSystem="local" code=" 200.1402" displayName="Calcium Oxalate Crystals,Ur-MK" /> <statusCode code="completed" /> < effectiveTime value="173849768178" /> <value unit=" " xsi:type="PQ" value="None seen" /> < referenceRange> <observationRange> <text> NRG</text> </observationRange> </ referenceRange> </observation> </component> < component> <observation moodCode="EVN" classCode=" OBS"> <templateId root="2.16.840.1.722238.10.20.22.4.2& quot; /> <id nullFlavor="NA" /> <code codeSystem="local" code="200.1452" displayName=" Cystine Crystals,Urine-MK" /> <statusCodecode=" completed" /> <effectiveTime value="876446258830" /> <value unit="" xsi:type="PQ" value="None seen" /> <referenceRange> <observationRange > <text>NRG</text> </observationRange&gt ; </referenceRange> </observation> </component&gt ; <component> <observation moodCode="EVN" classCode="OBS"> <templateId root=" 2.16.840.1.228189.10.20.22.4.2" /> <id nullFlavor="NA&quot ; /> <code codeSystem="local" code="200.1502&quot ; displayName="Uric Acid Crystals,Urine-MK" /> < statusCode code="completed" /> <effectiveTime value=& quot;045755578435" /> <value unit="" xsi:type="PQ& quot; value="None seen" /> <referenceRange> <observationRange> <text>NRG</text> & lt;/observationRange> </referenceRange> </ observation> </component> <component> < observation moodCode="EVN" classCode="OBS"> < templateId root="2.16.840.1.732072.10.20.22.4.2" /> <id nullFlavor="NA" /> <code codeSystem="local" code="200.1552" displayName="Triple Phosphate Crystal,Ur-MK&quot ; /> <statusCode code="completed" /> < effectiveTime value="223571413875" /> <value unit="&quot ; xsi:type="PQ" value="None seen" /> < referenceRange> <observationRange> <text> NRG</text> </observationRange> </referenceRange& gt; </observation></component> <component> <observation moodCode="EVN" classCode="OBS"> <templateId root="2.16.840.1.284334.10.20.22.4.2" /> <id nullFlavor="NA" /> <code codeSystem="local" code="200.1602" displayName="Tyrosine Crystal,Urine-MK" /&gt ; <statusCode code="completed" /> < effectiveTime value="345394000133" /><value unit="" xsi:type="PQ" value="None seen" /> < referenceRange> <observationRange> <text> NRG</text> </observationRange> </referenceRange> </observation> </component> <component> <observation moodCode="EVN" classCode="OBS"> <templateId root="2.16.840.1.491163.10.20.22.4.2" /> < id nullFlavor="NA" /> <code codeSystem="local&quot ; code="200.1702" displayName="Amorphous Sediment,Urine-MK" /> <statusCode code="completed" /> < effectiveTime value="714912062966" /> <value unit=&quot ;" xsi:type="PQ" value="None seen" /> < referenceRange> <observationRange> <text> NRG</text> </observationRange> </referenceRange> </observation> </component> <component> <observation moodCode="EVN" classCode="OBS"> <templateId root="2.16.840.1.700885.10..22.4.2" /> <id nullFlavor="NA" /> <code codeSystem=" local" code="200.1752" displayName="Bacteria,Urine-MK" /> <statusCode code="completed" /> < effectiveTime value="287671870470" /> <value unit=&quot ;" xsi:type="PQ" value="2+" /> < referenceRange> <observationRange> <text> NEGATIVE</text> </observationRange> </ referenceRange> </observation> </component> < component> <observation moodCode="EVN" classCode=" OBS"> <templateId root="2.16.840.1.359341.10..22.4.2& quot; /> <id nullFlavor="NA" /> <code codeSystem="local" code="200.1802" displayName="Fatty Casts,Urine-MK" /> <statusCode code="completed" /& gt; <effectiveTime value="573254986980" /> &lt ;value unit="/LPF" xsi:type="PQ" value="None seen&quot ; /> <referenceRange> <observationRange> <text>NRG</text> </observationRange> </referenceRange> </observation> </component> <component> <observation moodCode="EVN" classCode=& quot;OBS"> <templateId root="2.16.840.1.010550.10.20.22.4.2& quot; /> <id nullFlavor="NA" /> <code codeSystem="local" code="200.1852" displayName=" Hyaline Casts,Urine-MK" /> <statusCode code="completed& quot; /> <effectiveTime value="800590584402" /> <value unit="/LPF" xsi:type="PQ" value="None seen" /> <referenceRange> <observationRange> <text>NRG</text> </observationRange> </referenceRange> </observation> </component& gt; <component> <observation moodCode="EVN" classCode="OBS"><templateId root=" 2.16.840.1.769400.10.20.22.4.2" /> <id nullFlavor="NA& quot; /> <code codeSystem="local" code="200.1901& quot; displayName="Granular Casts,Urine-MK" /> < statusCode code="completed" /> <effectiveTime value=" 194701069246" /> <value unit="" xsi:type="PQ& quot; value="None seen" /> <referenceRange> <observationRange> <text>NRG</text> </observationRange> </referenceRange> </ observation> </component> <component> < observation moodCode="EVN" classCode="OBS"> < templateId root="2.16.840.1.731469.10.20.22.4.2" /> < id nullFlavor="NA" /> <code codeSystem="local&quot ; code="200.2051" displayName="Waxy Casts,Urine-MK" /> <statusCode code="completed" /> < effectiveTime value="781690670931" /> <value unit=&quot ;/LPF" xsi:type="PQ" value="None seen" /> & lt;referenceRange> <observationRange> <text& gt;NRG</text> </observationRange> </referenceRange& gt; </observation> </component> <component> <observation moodCode="EVN" classCode="OBS"> <templateId root="2.16.840.1.047315.10..22.4.2" /> <id nullFlavor="NA" /> <code codeSystem=&quot ;local" code="200.2152" displayName="WhiteBlood Cell Casts, Ur-MK" /> <statusCode code="completed" />< effectiveTime value="886701276084" /> <value unit=&quot ;/LPF" xsi:type="PQ" value="None seen" /> & lt;referenceRange> <observationRange> <text& gt;NRG</text> </observationRange> </ referenceRange> </observation> </component> < component> <observation moodCode="EVN" classCode=" OBS"> <templateId root="2.16.840.1.372899.10.20.22.4.2& quot; /> <id nullFlavor="NA" /> <code codeSystem="local" code="200.2177" displayName=" Hemoglogin casts, Urine-MK" /> <statusCode code=" completed" /> <effectiveTime value="885950409402" /> <value unit="/LPF" xsi:type="PQ" value="None seen" /> <referenceRange> <observationRange > <text>NRG</text> </observationRange& gt; </referenceRange> </observation> </ component> <component> <observation moodCode="EVN& quot; classCode="OBS"> <templateId root=" 2.16.840.1.633678.10.20.22.4.2" /> <id nullFlavor="NA& quot; /> <code codeSystem="local" code="200.2252& quot; displayName="Starch,Urine-MK" /> <statusCode code ="completed" /> <effectiveTime value="653353956086 " /> <value unit="" xsi:type="PQ" value= "None seen" /> <referenceRange> < observationRange> <text>NRG</text> </ observationRange> </referenceRange> </observation&gt ; </component> <component> <observation moodCode ="EVN" classCode="OBS"> <templateId root=& quot;2.16.840.1.199218.10.20.22.4.2" /> <id nullFlavor=&quot ;NA" /> <code codeSystem="local" code="200.2302&quot ; displayName="Mucus,Urine-MK" /> <statusCode code=& quot;completed" /> <effectiveTime value="257721120708& quot; /> <value unit="" xsi:type="PQ" value=& quot;None seen" /> <referenceRange> < observationRange> <text>NRG</text> </ observationRange> </referenceRange> </observation&gt ; </component> <component> <observationmoodCode= "EVN" classCode="OBS"> <templateId root=&quot ;2.16.840.1.076754.10.20.22.4.2" /> <id nullFlavor="NA& quot; /> <code codeSystem="local" code="200.2352& quot; displayName="Trichomonas,Urine-MK" /> < statusCode code="completed" /> <effectiveTime value=& quot;673120403845" /> <value unit="" xsi:type=& quot;PQ" value="None seen" /> <referenceRange> <observationRange> <text>NRG</text> </observationRange> </referenceRange> </ observation> </component> <component> < observation moodCode="EVN" classCode="OBS"> < templateId root="2.16.840.1.823140.10.20.22.4.2" /> < id nullFlavor="NA" /> <code codeSystem="local&quot ; code="200.2402" displayName="Yeast,Urine-MK" /> <statusCode code="completed" /> <effectiveTime value="255446306954" /> <value unit="" xsi: type="PQ" value="None seen" /> < referenceRange> <observationRange> <text> NEGATIVE</text> </observationRange> </ referenceRange> </observation> </component> < component> <observation moodCode="EVN" classCode=" OBS"> <templateId root="2.16.840.1.803164.10.20.22.4.2& quot; /> <id nullFlavor="NA" /> <code codeSystem="local" code="200.2502" displayName="Sperm, Urine-MK" /> <statusCode code="completed" /> <effectiveTime value="404724564970" /> <value unit="" xsi:type="PQ" value="None seen" />< referenceRange> <observationRange> <text> NRG</text> </observationRange> </ referenceRange> </observation> </component> < component> <observation moodCode="EVN" classCode=" OBS"> <templateId root="2.16.840.1.295081.10.20.22.4.2& quot; /> <id nullFlavor="NA" /> <code codeSystem="local" code="200.2552" displayName="Oval Fat Bodies,Urine-MK" /> <statusCode code="completed& quot; /> <effectiveTime value="531417209900" /> < value unit="" xsi:type="PQ" value="None seen" /&gt ; <referenceRange> <observationRange> <text>NRG</text> </observationRange> </ referenceRange> </observation> </component> </ organizer> </entry> <entry> <organizer moodCode="EVN " classCode="BATTERY"> <templateId root=" 2.16.840.1.855108.10.20.22.4.1" /> <id nullFlavor="NA&quot ; /> <code codeSystem="local" code="LESR-MK" displayName="L100.6375" /> <statusCode code="completed " /> <component> <observation moodCode="EVN& quot; classCode="OBS"> <templateId root=" 2.16.840.1.327615.10.20.22.4.2" /> <id nullFlavor="NA&quot ; /> <code codeSystem="local" code="100.6375&quot ; displayName="ESR - MK" /> <statusCode code=" completed" /> <effectiveTime value="527390803388" /> <value unit="MM/HR" xsi:type="PQ" value=& quot;94" /> <interpretationCode codeSystem="local&quot ; code="*" /> <referenceRange> < observationRange> <text>0-20</text> </ observationRange> </referenceRange> </observation> </component> </organizer> </entry> <entry> <organizer moodCode="EVN" classCode="BATTERY"> <templateId root="2.16.840.1.534829.10.20.22.4.1" /> < id nullFlavor="NA" /> <code codeSystem="local" code="LESR-MK" displayName="L100.6375" /> < statusCode code="completed" /> <component> < observation moodCode="EVN" classCode="OBS"> < templateId root="2.16.840.1.581332.10.20.22.4.2" /> < id nullFlavor="NA" /> <code codeSystem="local&quot ; code="100.6375" displayName="ESR - MK" /> < statusCode code="completed" /> <effectiveTime value=& quot;200327603860" /> <value unit="MM/HR" xsi:type ="PQ" value="87" /> <interpretationCode codeSystem="local" code="*" /> < referenceRange> <observationRange><text>0-20</text& gt; </observationRange> </referenceRange> & lt;/observation> </component> </organizer> </entry&gt ; <entry> <organizer moodCode="EVN" classCode=" BATTERY"> <templateId root="2.16.840.1.415012.10.20.22.4.1& quot; /> <id nullFlavor="NA" /><code codeSystem=&quot ;local" code="LESR-MK" displayName="L100.6375" /> <statusCode code="completed" /> <component> <observationmoodCode="EVN" classCode="OBS"> <templateId root="2.16.840.1.746788.10.20.22.4.2" /> <id nullFlavor="NA" /> <code codeSystem=" local" code="100.6375" displayName="ESR - MK" /> <statusCode code="completed" /> < effectiveTime value="634749151441" /> <value unit=&quot ;MM/HR" xsi:type="PQ" value="70" /> < interpretationCode codeSystem="local" code="*" /> <referenceRange> <observationRange> < text>0-20</text> </observationRange> </ referenceRange> </observation> </component> </ organizer> </entry> <entry> <organizer moodCode="EVN " classCode="BATTERY"> <templateId root=" 2.16.840.1.768131.10.20.22.4.1" /> <id nullFlavor="NA&quot ; /> <code codeSystem="local" code="LCBC" displayName="L100.0050" /> <statusCode code="completed " /> <component> <observation moodCode="EVN& quot; classCode="OBS"> <templateId root=" 2.16.840.1.797318.10.20.22.4.2" /> <id nullFlavor="NA" /> <code codeSystem="local" code="100.0150" displayName="WBC - WHITE BLOOD COUNT" /> <statusCode code="completed" /> <effectiveTime value=" " /> <value unit="T/MM3" xsi:type=& quot;PQ" value="9.0" /> <referenceRange> <observationRange> <text>4.5-11.0</text> </observationRange> </referenceRange> </ observation> </component> <component> < observation moodCode="EVN" classCode="OBS"> < templateId root="2.16.840.1.948578.10.20.22.4.2" /> <id nullFlavor="NA" /> <code codeSystem="local" code="100.0250" displayName="RED BLOOD COUNT" /> <statusCode code="completed" /> <effectiveTime value="671749604660" /> <value unit="M/MM3" xsi:type="PQ" value="4.35" /> <referenceRange > <observationRange> <text>4.00-5.20</ text> </observationRange> </referenceRange> </observation> </component> <component> <observation moodCode="EVN" classCode="OBS"> <templateId root="2.16.840.1.278722.10.20.22.4.2" /> <id nullFlavor="NA" /> <code codeSystem=" local" code="100.0300" displayName="HGB - HEMOGLOBIN" / > <statusCode code="completed" /> < effectiveTime value="642734216839" /> <value unit=&quot ;GM/DL" xsi:type="PQ" value="11.9" /> < interpretationCode codeSystem="local" code="*" /> <referenceRange> <observationRange> < text>12-16</text> </observationRange> </ referenceRange> </observation> </component> < component> <observation moodCode="EVN" classCode=" OBS"> <templateId root="2.16.840.1.529494.10.20.22.4.2& quot; /> <id nullFlavor="NA" /> <code codeSystem="local" code="100.0400" displayName="HCT - HEMATOCRIT" /> <statusCode code="completed" /> <effectiveTime value="" /> < value unit="%" xsi:type="PQ" value="38.4" /> <referenceRange> <observationRange> <text>36-46</text> </observationRange> < /referenceRange> </observation> </component> &lt ;component> <observation moodCode="EVN" classCode="OBS "> <templateIdroot="2.16.840.1.132590.10.20.22.4.2&quot ; /> <id nullFlavor="NA" /> <code codeSystem="local" code="100.0550" displayName="MEAN CORPUSCULAR VOLUME" /> <statusCode code="completed&quot ; /> <effectiveTime value="680665749612" /> <value unit="UM3" xsi:type="PQ" value="88.3" /> <referenceRange> <observationRange> <text>80-100</text> </observationRange> </referenceRange> </observation> </component& gt; <component> <observation moodCode="EVN" classCode=& quot;OBS"> <templateId root=" 2.16.840.1.279162.10..22.4.2" /> <id nullFlavor="NA& quot; /> <code codeSystem="local" code="100.0600" displayName="MEAN CORPUSCULAR HGB" /> <statusCode code= "completed" /> <effectiveTime value="236540576035& quot; /> <value unit="UUG" xsi:type="PQ" value="27.4" /> <referenceRange> < observationRange> <text>26-34</text> </ observationRange> </referenceRange> </observation&gt ; </component> <component> <observation moodCode ="EVN" classCode="OBS"> <templateId root=& quot;2.16.840.1.533853.10..22.4.2" /> <id nullFlavor=&quot ;NA" /> <code codeSystem="local" code=" 100.0650" displayName="MEAN CORPUSCULAR HGB CONC(MCHC" /> <statusCode code="completed" /> < effectiveTime value="" /> <value unit=&quot ;GM/DL" xsi:type="PQ" value="31.0" /> < referenceRange> <observationRange> <text> 31-37</text> </observationRange> </ referenceRange> </observation> </component> < component> <observation moodCode="EVN" classCode=" OBS"> <templateId root="2.16.840.1.847836.10.20.22.4.2& quot; /> <id nullFlavor="NA" /> <code codeSystem="local" code="100.0750" displayName="RDW STANDARD DEVIATION" /> <statusCode code="completed&quot ; /> <effectiveTime value="" /> <value unit="FL" xsi:type="PQ" value="53.0" / > <interpretationCode codeSystem="local" code="*& quot; /> <referenceRange> <observationRange> <text>36.9-50.2</text> </ observationRange> </referenceRange> </observation> </component> <component> <observation moodCode=& quot;EVN" classCode="OBS"> <templateId root=" 2.16.840.1.464050.10.20.22.4.2" /> <id nullFlavor="NA& quot; /> <code codeSystem="local" code="100.0850& quot; displayName="PLT - PLATELET COUNT" /> <statusCode code=& quot;completed" /> <effectiveTime value="435239022173& quot; /> <value unit="T/MM3" xsi:type="PQ" value="246" /> <referenceRange> < observationRange> <text>130-400</text> & lt;/observationRange> </referenceRange> </ observation> </component> <component> < observation moodCode="EVN" classCode="OBS"> < templateId root="2.16.840.1.100017.10.20.22.4.2" /> < id nullFlavor="NA" /> <code codeSystem="local&quot ; code="100.0950" displayName="MEAN PLATELET VOLUME" /> <statusCode code="completed" /> < effectiveTime value="498015884565" /> <value unit=&quot ;UM3" xsi:type="PQ" value="10.1" /> < referenceRange> <observationRange> <text> 9.4-12.4</text> </observationRange> </ referenceRange> </observation> </component> < component> <observation moodCode="EVN" classCode=" OBS"> <templateId root="2.16.840.1.577185.10.20.22.4.2& quot; /> <id nullFlavor="NA" /> <code codeSystem="local" code="100.1050" displayName=" NEUTROPHILS % (AUTO)" /> <statusCode code=" completed" /> <effectiveTime value="982163035724" /> <value unit="%" xsi:type="PQ" value="82.9" /> <interpretationCode codeSystem=" local" code="*" /> <referenceRange> < observationRange> <text>33-66</text> < /observationRange> </referenceRange> </observation& gt; </component> <component> <observation moodCode="EVN" classCode="OBS"> <templateId root="2.16.840.1.817421.10.20.22.4.2" /> <id nullFlavor ="NA" /> <code codeSystem="local" code=" 100.1100" displayName="LYMPHOCYTES % (AUTO)" /> <statusCode code="completed" /> <effectiveTime value="916383270349" /> <value unit="%&quot ; xsi:type="PQ" value="11.8" /> < interpretationCode codeSystem="local" code="*" /> <referenceRange> <observationRange> < text>23-45</text> </observationRange> </ referenceRange> </observation> </component> < component> <observation moodCode="EVN" classCode=" OBS"> <templateId root="2.16.840.1.527790.10.20.22.4.2& quot; /> <id nullFlavor="NA" /> <code codeSystem= "local" code="100.1150" displayName="MONOCYTES &#37 ; (AUTO)" /> <statusCode code="completed" /> <effectiveTime value="" /> < value unit="%" xsi:type="PQ" value="4.9" / > <referenceRange> <observationRange> <text>0-9.0</text> </observationRange> & lt;/referenceRange> </observation> </component> <component> <observation moodCode="EVN" classCode=& quot;OBS"> <templateId root=" 2.16.840.1.951433.10.20.22.4.2" /> <id nullFlavor="NA" /& gt; <code codeSystem="local" code="100.1200" displayName="EOSINOPHILS % (AUTO)" /> < statusCode code="completed" /> <effectiveTime value=& quot;003879735286" /> <value unit="%" xsi:type=& quot;PQ" value="0.1" /> <referenceRange> <observationRange> <text>0-4</text> </observationRange> </referenceRange> </ observation></component> <component> <observation moodCode="EVN" classCode="OBS"> <templateId root="2.16.840.1.604035.10.20.22.4.2" /> <id nullFlavor=& quot;NA" /> <code codeSystem="local" code=" 100.1250" displayName="BASOPHILS % (AUTO)" /> <statusCode code="completed" /> <effectiveTime value="004253554280" /> <value unit="%" xsi: type="PQ" value="0.1" /> <referenceRange> <observationRange> <text>0-2</text> </observationRange> </referenceRange> </ observation></component> <component> <observation moodCode="EVN" classCode="OBS"> <templateId root="2.16.840.1.735091.10.20.22.4.2" /> <id nullFlavor=& quot;NA" /> <code codeSystem="local" code=" 100.1275" displayName="IMMATURE GRANULOCYTE % (AUTO)" /& gt; <statusCode code="completed" /> < effectiveTime value="" /> <value unit=&quot ;%" xsi:type="PQ" value="0.2" /> &lt ;referenceRange> <observationRange> <text&gt ;0.0-0.5</text> </observationRange> </ referenceRange> </observation> </component> < component> <observation moodCode="EVN" classCode=" OBS"> <templateId root="2.16.840.1.012067.10.20.22.4.2& quot; /> <id nullFlavor="NA" /> <code codeSystem="local" code="100.1300" displayName=" NEUTROPHILS # (AUTO)" /> <statusCode code="completed& quot; /> <effectiveTime value="587180660596" /> <value unit="T/MM3" xsi:type="PQ" value="7.4& quot; /> <referenceRange> <observationRange> <text>1.8-7.7</text> </observationRange> </referenceRange> </observation> </component& gt; <component> <observation moodCode="EVN" classCode="OBS"> <templateId root=" 2.16.840.1.841004.10.20.22.4.2" /> <id nullFlavor="NA& quot; /> <code codeSystem="local" code="100.1350& quot; displayName="LYMPHOCYTES # (AUTO)" /> < statusCode code="completed" /> <effectiveTime value=& quot;354592985884" /> <value unit="T/MM3" xsi:type=&quot ;PQ" value="1.1" /> <referenceRange> <observationRange> <text>1-4.8</text> </observationRange> </referenceRange> </ observation> </component> <component> < observation moodCode="EVN" classCode="OBS"> < templateId root="2.16.840.1.701839.10.20.22.4.2" /> <id nullFlavor="NA" /> <code codeSystem="local" code="100.1400" displayName="MONOCYTES # (AUTO)" /> <statusCode code="completed" /> <effectiveTime value="887810777415" /> <value unit="T/MM3" xsi:type="PQ" value="0.4" /> <referenceRange& gt; <observationRange> <text>0-0.8</text& gt;</observationRange> </referenceRange> </ observation> </component> <component> < observation moodCode="EVN" classCode="OBS"> < templateId root="2.16.840.1.265467.10.20.22.4.2" /> < id nullFlavor="NA" /> <code codeSystem="local&quot ; code="100.1450" displayName="EOSINOPHILS # (AUTO)" /> <statusCode code="completed" /> < effectiveTime value="868826146314" /> <value unit=&quot ;T/MM3" xsi:type="PQ" value="0.0" /> < referenceRange> <observationRange> <text> 0-0.5</text> </observationRange> </ referenceRange> </observation> </component> < component> <observation moodCode="EVN" classCode=" OBS"> <templateId root="2.16.840.1.906599.10.20.22.4.2& quot; /> <id nullFlavor="NA" /> <code codeSystem="local" code="100.1500" displayName=" BASOPHILS # (AUTO)" /> <statusCode code="completed&quot ; /> <effectiveTime value="" /> <value unit="T/MM3" xsi:type="PQ" value="0.0&quot ; /> <referenceRange> <observationRange> <text>0-0.2</text> </observationRange> &lt ;/referenceRange> </observation> </component> & lt;component> <observation moodCode="EVN" classCode=&quot ;OBS"> <templateId root="2.16.840.1.825464.10.20.22.4.2" /& gt; <id nullFlavor="NA" /> <code codeSystem ="local" code="100.1525" displayName="IMMATURE GRANULOCYTE # (AUTO)" /> <statusCode code="completed& quot; /> <effectiveTime value="637583430482" /> <value unit="T/MM3" xsi:type="PQ" value="0.02& quot; /> <referenceRange> <observationRange> <text>0.00-0.03</text> </observationRange> </referenceRange> </observation> </component > </organizer> </entry> <entry> <organizer moodCode ="EVN" classCode="BATTERY"> <templateId root=& quot;2.16.840.1.895102.10.20.22.4.1" /> <id nullFlavor="NA& quot; /> <code codeSystem="local" code="LBMP" displayName="L200.0050" /> <statusCode code="completed " /> <component> <observation moodCode="EVN&quot ; classCode="OBS"> <templateId root=" 2.16.840.1.009764.10.20.22.4.2" /> <id nullFlavor="NA& quot; /> <code codeSystem="local" code="300.0400& quot; displayName="FUNGAL CULTURE." /> <statusCode code ="completed" /> <effectiveTime value="184469421072& quot; /> <value unit="MG/DL" xsi:type="PQ" value="0.9" /> <referenceRange> < observationRange> <text>0.7-1.2</text> & lt;/observationRange> </referenceRange> </ observation> </component> <component> < observation moodCode="EVN" classCode="OBS"> < templateId root="2.16.840.1.805132.10.20.22.4.2" /> < id nullFlavor="NA" /> <code codeSystem="local&quot ; code="300.0450" displayName="FUNGAL CULTURE, BLOOD." /&gt ; <statusCode code="completed" /> <effectiveTime value="177248116244" /> <value unit="RATIO" xsi:type="PQ" value="36" /> < interpretationCode codeSystem="local" code="*" /> <referenceRange> <observationRange> < text>6-26</text> </observationRange> </ referenceRange> </observation> </component> < component> <observation moodCode="EVN" classCode=" OBS"> <templateId root="2.16.840.1.925517.10.20.22.4.2& quot; /> <id nullFlavor="NA" /> <code codeSystem="local" code="300.0100" displayName="NA - Sodium" /> <statusCode code="completed" /> <effectiveTime value="752358879355" /> <value unit="MEQ/L" xsi:type="PQ" value="143" /> <referenceRange> <observationRange> &lt ;text>134-144</text> </observationRange> < /referenceRange> </observation> </component> < component> <observation moodCode="EVN" classCode=" OBS"> <templateId root="2.16.840.1.151454.10.20.22.4.2& quot; /> <id nullFlavor="NA" /> <code codeSystem="local" code="300.0150" displayName=" Potassium" /> <statusCode code="completed" /> <effectiveTime value="" /> < value unit="MEQ/L" xsi:type="PQ" value="3.9" /&gt ; <referenceRange> <observationRange> <text>3.6-5</text> </observationRange> </referenceRange> </observation> </component> <component> <observation moodCode="EVN" classCode=& quot;OBS"> <templateId root=" 2.16.840.1.538318.10.20.22.4.2" /> <id nullFlavor="NA& quot; /> <code codeSystem="local" code="300.0200& quot; displayName="Chloride" /> <statusCode code=" completed" /> <effectiveTime value="534435744896" /> <value unit="MEQ/L" xsi:type="PQ" value=& quot;105" /> <referenceRange> < observationRange> <text>98-107</text> </ observationRange> </referenceRange> </observation&gt ; </component> <component> <observation moodCode ="EVN" classCode="OBS"> <templateId root=& quot;2.16.840.1.935865.10.20.22.4.2" /> <id nullFlavor=&quot ;NA" /> <code codeSystem="local" code=" 300.0250" displayName="CO2 - Carbon Dioxide" /> < statusCode code="completed" /> <effectiveTime value=& quot;[id number]" /> <value unit="MEQ/L" xsi:type ="PQ" value="27" /> <referenceRange> <observationRange> <text>22-30</text> </observationRange> </referenceRange> </ observation> </component> <component> < observation moodCode="EVN" classCode="OBS"> < templateId root="[id number]" /> < id nullFlavor="NA" /> <code codeSystem="local&quot ; code="300.0300" displayName="Anion Gap" /> &lt ;statusCode code="completed" /> <effectiveTime value=" [id number]" /> <value unit="MEQ/L" xsi:type=& quot;PQ" value="11" /> <referenceRange> <observationRange> <text>5-15</text> </observationRange> </referenceRange> </ observation> </component> <component> < observation moodCode="EVN" classCode="OBS"> < templateId root="2.16.840.1.118113.10.20.22.4.2" /> < id nullFlavor="NA" /> <code codeSystem="local&quot ; code="300.0350" displayName="BUN - Blood Urea Nitrogen" /& gt; <statusCode code="completed" /> <effectiveTime value="658055842107" /> <value unit="MG/DL" xsi:type="PQ" value="32.0" /> < interpretationCode codeSystem="local" code="*" /> <referenceRange> <observationRange> < text>7-17</text> </observationRange> </ referenceRange> </observation> </component> < component> <observation moodCode="EVN" classCode=" OBS"> <templateId root="2.16.840.1.132190.10.20.22.4.2& quot; /> <id nullFlavor="NA" /> <code codeSystem="local" code="300.0410" displayName=" Glomerular Filtration Rate" /> <statusCode code=" completed" /> <effectiveTime value="532216626020" /> <value unit="" xsi:type="PQ" value=" 62" /> <referenceRange> <observationRange& gt; <text>NRG</text> </observationRange> </referenceRange> </observation> </component&gt ; <component> <observation moodCode="EVN" classCode="OBS"> <templateId root=" 2.16.840.1.649643.10.20.22.4.2" /> <id nullFlavor="NA& quot; /> <code codeSystem="local" code="300.0500& quot; displayName="Glucose" /> <statusCode code=" completed" /> <effectiveTime value="366058187801" /> <value unit="MG/DL" xsi:type="PQ" value=& quot;249" /> <interpretationCode codeSystem="local&quot ; code="*" /> <referenceRange> < observationRange> <text>65-110</text> < /observationRange> </referenceRange> </observation& gt; </component> <component> <observation moodCode=& quot;EVN" classCode="OBS"> <templateId root=" 2.16.840.1.732159.10.20.22.4.2" /> <id nullFlavor="NA&quot ; /> <code codeSystem="local" code="300.2000&quot ; displayName="Osmolality,Calculated" /> <statusCode code="completed" /> <effectiveTime value=" 508472160526" /> <value unit="MOSM/KG" xsi:type=& quot;PQ" value="290" /> <interpretationCode codeSystem="local" code="*" /> < referenceRange> <observationRange> <text> 261-280</text> </observationRange> </ referenceRange> </observation> </component> < component> <observation moodCode="EVN" classCode=" OBS"> <templateId root="2.16.840.1.416659.10.20.22.4.2& quot; /> <id nullFlavor="NA" /> <code codeSystem="local" code="300.2200"displayName="Calcium& quot; /> <statusCode code="completed" /> < effectiveTime value="425869868413" /> <value unit=&quot ;MG/DL" xsi:type="PQ" value="9.2" /> < referenceRange> <observationRange> <text> 8.4-10.2</text> </observationRange> </ referenceRange> </observation> </component> < component> <observation moodCode="EVN" classCode=" OBS"> <templateId root="2.16.840.1.951784.10.20.22.4.2& quot; /> <id nullFlavor="NA" /> <code codeSystem="local" code="300.0095" displayName=" LICTERUS" /> <statusCode code="completed" /> <effectiveTime value="132122512299" /> < value unit="" xsi:type="PQ" value="< 2" /& gt; <referenceRange> <observationRange> <text>0-7</text> </observationRange> </referenceRange> </observation> </component> <component> <observation moodCode="EVN" classCode= "OBS"> <templateId root=" 2.16.840.1.197558.10.20.22.4.2" /> <id nullFlavor="NA& quot; /> <code codeSystem="local" code="300.0096& quot; displayName="LHEMOLYSIS" /> <statusCode code=& quot;completed" /> <effectiveTime value="263949710052& quot; /> <value unit="" xsi:type="PQ" value=& quot;< 15" /> <referenceRange> < observationRange> <text>0-25</text> </ observationRange> </referenceRange> </observation> </component> <component> <observation moodCode=& quot;EVN" classCode="OBS"> <templateId root=" 2.16.840.1.304834.10.20.22.4.2" /> <id nullFlavor="NA& quot; /> <code codeSystem="local" code="300.0097& quot; displayName="LTURBIDITY" /> <statusCode code=& quot;completed" /> <effectiveTime value="180147949931& quot; /> <value unit="" xsi:type="PQ" value=& quot;< 20" /> <referenceRange> < observationRange> <text>0-20</text> </ observationRange> </referenceRange> </observation&gt ; </component> </organizer> </entry> <entry> <organizer moodCode="EVN" classCode="BATTERY"> <templateId root="2.16.840.1.330658.10.20.22.4.1" /> < id nullFlavor="NA" /> <code codeSystem="local" code="LTROPI" displayName="L300.3490" /> < statusCode code="completed" /> <component> < observation moodCode="EVN" classCode="OBS"> < templateId root="2.16.840.1.294489.10.20.22.4.2" /> < id nullFlavor="NA" /> <code codeSystem="local&quot ; code="300.3500" displayName="Troponin I" /> & lt;statusCode code="completed" /> <effectiveTime value= "227860421531" /> <value unit="ng/ml" xsi:type=&quot ;PQ" value="0.038" /> <referenceRange> <observationRange> <text>0-0.12</text> </observationRange> </referenceRange> </ observation> </component> </organizer> </entry> < entry> <organizer moodCode="EVN" classCode="BATTERY&quot ;> <templateId root="2.16.840.1.575789.10.20.22.4.1" /> <id nullFlavor="NA" /> <code codeSystem=" local" code="LBNP" displayName="L300.3700" /> & lt;statusCode code="completed" /> <component> &lt ;observation moodCode="EVN" classCode="OBS"> &lt ;templateId root="2.16.840.1.171352.10.20.22.4.2" /> < id nullFlavor="NA" /> <code codeSystem="local&quot ; code="300.3700" displayName="B-Type Natriuretic Peptide" / > <statusCodecode="completed" /> < effectiveTime value="141093899645" /> <value unit="pg/ mL" xsi:type="PQ" value="1710" /> < interpretationCode codeSystem="local" code="*" /> <referenceRange> <observationRange> < text>0-175</text> </observationRange> </ referenceRange> </observation> </component> </ organizer> </entry> <entry> <organizer moodCode="EVN " classCode="BATTERY"> <templateId root=" 2.16.840.1.848306.10.20.22.4.1" /> <id nullFlavor="NA&quot ; /> <code codeSystem="local" code="LESR-A" displayName="L750.8263" /> <statusCode code="completed " /> <component> <observation moodCode="EVN& quot; classCode="OBS"> <templateId root=" 2.16.840.1.180430.10.20.22.4.2" /> <id nullFlavor="NA& quot; /> <code codeSystem="local" code="903.9025& quot; displayName="ESR - Sedimentation Rate - AMS" /> < statusCode code="completed" /> <effectiveTime value=& quot;682246991973" /> <value unit="mm/h" xsi:type= "PQ" value="56" /> <referenceRange> <observationRange> <text>0-23</text> </observationRange> </referenceRange> </ observation> </component> </organizer> </entry> & lt;entry> <organizer moodCode="EVN" classCode="BATTERY& quot;> <templateId root="2.16.840.1.639212.10.20.22.4.1" /& gt; <id nullFlavor="NA" /> <code codeSystem=" local" code="LLIPID" displayName="L200.1350" /> <statusCode code="completed" /> <component> <observation moodCode="EVN" classCode="OBS"> <templateId root="2.16.840.1.476948.10.20.22.4.2" /> & lt;id nullFlavor="NA" /> <code codeSystem="local& quot; code="300.4300" displayName="Triglycerides - Batch" /& gt; <statusCode code="completed" /> < effectiveTime value="133824952440" /> <value unit=&quot ;MG/DL" xsi:type="PQ" value="260" /> < interpretationCode codeSystem="local" code="*" /> <referenceRange> <observationRange> <text>35- 135</text> </observationRange> </ referenceRange> </observation> </component> < component> <observation moodCode="EVN" classCode=" OBS"><templateId root="2.16.840.1.664408.10.20.22.4.2" /&gt ; <id nullFlavor="NA" /> <code codeSystem=& quot;local" code="300.4350" displayName="Cholesterol - Batch " /> <statusCode code="completed" /> < effectiveTime value="192005080166" /> <value unit=&quot ;MG/DL" xsi:type="PQ" value="220" /> < interpretationCode codeSystem="local" code="*" /> <referenceRange> <observationRange> < text>132-199</text> </observationRange> </ referenceRange> </observation> </component> < component> <observation moodCode="EVN" classCode=" OBS"> <templateId root="2.16.840.1.388028.10.20.22.4.2& quot; /> <id nullFlavor="NA" /> <code codeSystem="local" code="300.4500" displayName="LDL Cholesterol,Calculated" /> <statusCode code="completed& quot; /> <effectiveTime value="690416174678" /> <value unit="" xsi:type="PQ" value="128.0&quot ; /> <referenceRange> <observationRange> <text>66-159</text> </observationRange> </referenceRange> </observation> </component& gt; <component> <observation moodCode="EVN" classCode="OBS"> <templateId root=" 2.16.840.1.912206.10.20.22.4.2" /> <id nullFlavor="NA& quot; /> <code codeSystem="local" code="300.4550& quot; displayName="VLDL Cholesterol" /> <statusCode code="completed" /> <effectiveTime value=" 792421796239" /> <value unit="MG/DL" xsi:type=& quot;PQ" value="52.0" /> <interpretationCode codeSystem="local" code="*" /> < referenceRange> <observationRange> <text> 0-28</text> </observationRange> </ referenceRange> </observation> </component> < component> <observation moodCode="EVN" classCode=" OBS"> <templateId root="2.16.840.1.365453.10.20.22.4.2& quot; /> <id nullFlavor="NA" /> <code codeSystem="local" code="300.4600" displayName="HDL Cholesterol, Direct -Batch" /> <statusCode code="completed& quot; /> <effectiveTime value="368745237346" /> <value unit="MG/DL" xsi:type="PQ" value="40& quot; /> <referenceRange> <observationRange> <text>40-60</text> </observationRange&gt ; </referenceRange> </observation> </ component> <component> <observation moodCode="EVN& quot; classCode="OBS"> <templateId root=" 2.16.840.1.483536.10.20.22.4.2" /> <id nullFlavor="NA& quot; /> <code codeSystem="local" code="300.4700& quot; displayName="Chol/HDL Ratio" /> <statusCode code= "completed" /> <effectiveTime value="345776690403& quot; /> <value unit="RATIO" xsi:type="PQ" value="5.5" /> <interpretationCode codeSystem="local&quot ; code="*" /> <referenceRange> < observationRange> <text>0-4.0</text> </ observationRange> </referenceRange> </observation&gt ; </component> </organizer> </entry> <entry> <organizer moodCode="EVN" classCode="BATTERY"> <templateId root="2.16.840.1.949320.10.20.22.4.1" /> < id nullFlavor="NA" /> <code codeSystem="local" code="LTROPI" displayName="L300.3490" /> < statusCode code="completed" /> <component> < observation moodCode="EVN" classCode="OBS"> < templateId root="2.16.840.1.693462.10.20.22.4.2" /><id nullFlavor="NA" /> <code codeSystem="local" code="300.3500" displayName="Troponin I" /> < statusCode code="completed" /> <effectiveTime value=& quot;967584733339" /> <value unit="ng/ml" xsi:type ="PQ" value="0.041" /> <referenceRange> <observationRange> <text>0-0.12</text> </observationRange> </referenceRange> </ observation> </component> <component> < observation moodCode="EVN" classCode="OBS"> < templateId root="2.16.840.1.264030.10.20.22.4.2" /> < id nullFlavor="NA" /> <code codeSystem="local&quot ; code="300.0096" displayName="LHEMOLYSIS" /> & lt;statusCode code="completed" /> <effectiveTime value=" 628606330978" /> <value unit="" xsi:type="PQ& quot; value="< 15" /> <referenceRange> <observationRange> <text>0-25</text> </observationRange> </referenceRange> </ observation> </component> </organizer> </entry> & lt;entry> <organizer moodCode="EVN" classCode="BATTERY& quot;> <templateId root="2.16.840.1.091778.10.20.22.4.1" /& gt; <id nullFlavor="NA" /> <code codeSystem=" local" code="LMAG" displayName="L200.2000" /> & lt;statusCode code="completed" /> <component> &lt ;observation moodCode="EVN" classCode="OBS"> &lt ;templateId root="2.16.840.1.998877.10.20.22.4.2" /> < id nullFlavor="NA" /> <code codeSystem="local&quot ; code="300.2350" displayName="MAG - Magnesium" /> <statusCode code="completed" /> <effectiveTime value="591075552766" /> <value unit="MG/DL" xsi:type="PQ" value="2.0" /> <referenceRange& gt; <observationRange> <text>1.6-2.3</ text> </observationRange> </referenceRange> </observation> </component> </organizer> </ entry> <entry> <organizer moodCode="EVN" classCode=& quot;BATTERY"> <templateId root=" 2.16.840.1.501552.10.20.22.4.1" /> <id nullFlavor="NA&quot ; /> <code codeSystem="local" code="LTSH-RT4F" displayName="L200.3855" /> <statusCode code="completed " /> <component> <observation moodCode="EVN& quot; classCode="OBS"> <templateId root=" 2.16.840.1.718353.10.20.22.4.2" /> <id nullFlavor="NA& quot; /> <code codeSystem="local" code="300.5510& quot; displayName="TSH wReflex T4 Free" /> <statusCode code="completed" /> <effectiveTime value=" 446861991360" /> <value unit="MIU/L" xsi:type=& quot;PQ" value="2.31" /> <referenceRange> <observationRange> <text>0.47-4.68</text> </observationRange> </referenceRange> </ observation> </component> </organizer> </entry> & lt;entry> <organizer moodCode="EVN" classCode="BATTERY& quot;> <templateId root="2.16.840.1.086363.10.20.22.4.1" /& gt; <id nullFlavor="NA" /> <code codeSystem=" local" code="LTROPI" displayName="L300.3490" /> <statusCode code="completed" /> <component> <observation moodCode="EVN" classCode="OBS"> <templateId root="2.16.840.1.193932.10.20.22.4.2" /> & lt;id nullFlavor="NA" /> <code codeSystem="local& quot; code="300.3500" displayName="Troponin I" /> <statusCode code="completed" /> < effectiveTimevalue="630372206566" /> <value unit=" ng/ml" xsi:type="PQ" value="0.036" /> < referenceRange> <observationRange> <text>0- 0.12</text> </observationRange> </ referenceRange> </observation> </component> < component> <observation moodCode="EVN" classCode=" OBS"> <templateId root="2.16.840.1.426633.10.20.22.4.2& quot; /> <id nullFlavor="NA" /> <code codeSystem="local" code="300.0096" displayName=" LHEMOLYSIS" /> <statusCode code="completed" /> <effectiveTime value="217265949892" /> < value unit="" xsi:type="PQ" value="< 15" /& gt; <referenceRange> <observationRange> <text>0-25</text> </observationRange> </referenceRange> </observation> </component> & lt;/organizer> </entry> <entry> <organizer moodCode=&quot ;EVN" classCode="BATTERY"> <templateId root=" 2.16.840.1.309609.10.20.22.4.1" /> <id nullFlavor="NA&quot ; /> <code codeSystem="local" code="LBGM" displayName="L900.0530" /> <statusCode code="completed& quot; /> <component> <observation moodCode="EVN& quot; classCode="OBS"> <templateId root=" 2.16.840.1.438653.10.20.22.4.2" /> <id nullFlavor="NA& quot; /> <code codeSystem="local" code="850.0100& quot; displayName="Glucometer" /> <statusCode code=& quot;completed" /> <effectiveTime value="734179772154& quot; /> <value unit="mg/dL" xsi:type="PQ" value="87" /> <referenceRange> < observationRange> <text>65-110</text> &lt ;/observationRange> </referenceRange> </observation& gt; </component> </organizer> </entry> <entry&gt ; <organizer moodCode="EVN" classCode="BATTERY"> <templateId root="2.16.840.1.801533.10.20.22.4.1" /> & lt;id nullFlavor="NA" /> <code codeSystem="local&quot ; code="LBGM" displayName="L900.0530" /> < statusCodecode="completed" /> <component> < observation moodCode="EVN" classCode="OBS"> < templateId root="2.16.840.1.659765.10.20.22.4.2" /> < id nullFlavor="NA" /> <code codeSystem="local&quot ; code="850.0100" displayName="Glucometer" /> & lt;statusCode code="completed" /> <effectiveTime value= "874960484201" /> <value unit="mg/dL" xsi: type="PQ" value="110" /> <referenceRange> <observationRange> <text>65-110</text&gt ; </observationRange> </referenceRange> </ observation> </component> </organizer> </entry> & lt;entry> <organizer moodCode="EVN" classCode="BATTERY& quot;> <templateId root="2.16.840.1.082665.10.20.22.4.1" /& gt; <id nullFlavor="NA" /> <code codeSystem=" local" code="LBGM" displayName="L900.0530" /> & lt;statusCode code="completed" /> <component> &lt ;observation moodCode="EVN" classCode="OBS"> &lt ;templateId root="2.16.840.1.526573.10.20.22.4.2" /> <id nullFlavor="NA" /> <code codeSystem="local" code="850.0100" displayName="Glucometer" /> < statusCode code="completed" /> <effectiveTime value=& quot;856444710774" /> <value unit="mg/dL" xsi:type ="PQ" value="249" /> <referenceRange> <observationRange> <text>65-110</text> </observationRange> </referenceRange> </ observation> </component> </organizer> </entry> & lt;entry> <organizer moodCode="EVN" classCode="BATTERY& quot;> <templateId root="2.16.840.1.181338.10.20.22.4.1" /& gt; <id nullFlavor="NA" /> <code codeSystem=" local" code="LBGM" displayName="L900.0530" /> & lt;statusCode code="completed" /> <component> &lt ;observation moodCode="EVN" classCode="OBS"> &lt ;templateId root="2.16.840.1.198799.10.20.22.4.2" /> < id nullFlavor="NA" /> <code codeSystem="local&quot ; code="850.0100" displayName="Glucometer" /> & lt;statusCode code="completed" /> <effectiveTime value=" 289237461258" /> <value unit="mg/dL"xsi:type=&quot ;PQ" value="74" /> <referenceRange> <observationRange> <text>65-110</text> </observationRange> </referenceRange> </ observation> </component> </organizer> </entry> & lt;entry> <organizer moodCode="EVN" classCode="BATTERY& quot;> <templateId root="2.16.840.1.826351.10.20.22.4.1" /& gt; <id nullFlavor="NA" /> <code codeSystem=" local" code="LCBCMD" displayName="L100.0075" /> <statusCode code="completed" /> <component> <observation moodCode="EVN" classCode="OBS"> <templateId root="2.16.840.1.768043.10.20.22.4.2" /> & lt;id nullFlavor="NA" /> <code codeSystem="local& quot; code="100.0150" displayName="WBC - WHITE BLOOD COUNT" /> <statusCode code="completed" /> < effectiveTime value="189068696290" /> <value unit=&quot ;T/MM3" xsi:type="PQ" value="8.6" /> < referenceRange> <observationRange> <text> 4.5-11.0</text> </observationRange> </ referenceRange> </observation> </component> < component> <observation moodCode="EVN" classCode=" OBS"> <templateId root="2.16.840.1.321778.10.20.22.4.2& quot; /> <id nullFlavor="NA" /> <code codeSystem="local" code="100.0250" displayName="RED BLOOD COUNT" /> <statusCode code="completed" /&gt ; <effectiveTime value="946297621629" /> < value unit="M/MM3" xsi:type="PQ" value="4.39" /&gt ; <referenceRange> <observationRange> <text>4.00-5.20</text> </observationRange> < /referenceRange> </observation> </component> &lt ;component> <observation moodCode="EVN" classCode="OBS "> <templateIdroot="2.16.840.1.574471.10.20.22.4.2&quot ; /> <id nullFlavor="NA" /> <code codeSystem="local" code="100.0300" displayName="HGB - HEMOGLOBIN" /> <statusCode code="completed" /> <effectiveTime value="594354454113" /> < value unit="GM/DL" xsi:type="PQ" value="12.1" /&gt ; <referenceRange> <observationRange> <text>12-16</text> </observationRange> </referenceRange> </observation> </component> <component> <observation moodCode="EVN" classCode= "OBS"> <templateId root=" 2.16.840.1.618532.10.20.22.4.2" /> <id nullFlavor="NA& quot; /> <code codeSystem="local" code="100.0400& quot; displayName="HCT - HEMATOCRIT" /> <statusCode code="completed" /> <effectiveTime value=" 514307287732" /> <value unit="%" xsi:type= "PQ" value="39.1" /> <referenceRange> <observationRange> <text>36-46</text> </observationRange> </referenceRange> </ observation> </component> <component> < observation moodCode="EVN" classCode="OBS"> < templateId root="2.16.840.1.883706.10.20.22.4.2" /> < id nullFlavor="NA" /> <code codeSystem="local&quot ; code="100.0550" displayName="MEAN CORPUSCULAR VOLUME" /&gt ; <statusCode code="completed" /> < effectiveTime value="449403008516" /> <value unit=&quot ;UM3" xsi:type="PQ" value="89.1" /> < referenceRange> <observationRange> <text>80-100</ text> </observationRange> </referenceRange> </observation> </component> <component> <observation moodCode="EVN" classCode="OBS"> <templateId root="2.16.840.1.336292.10.20.22.4.2" /> <id nullFlavor="NA" /> <code codeSystem=" local" code="100.0600" displayName="MEAN CORPUSCULAR HGB& quot; /> <statusCode code="completed" /> & lt;effectiveTime value="789094333417" /> <value unit=& quot;UUG" xsi:type="PQ" value="27.6" /> &lt ;referenceRange> <observationRange> <text&gt ;26-34</text> </observationRange> </ referenceRange></observation> </component> < component> <observation moodCode="EVN" classCode=" OBS"> <templateId root="2.16.840.1.113261.10.20.22.4.2& quot; /> <id nullFlavor="NA" /> <code codeSystem="local" code="100.0650" displayName="MEAN CORPUSCULAR HGB CONC(MCHC" /> <statusCode code=" completed" /> <effectiveTime value="068458848627" /> <value unit="GM/DL" xsi:type="PQ" value=& quot;30.9" /> <interpretationCode codeSystem="local& quot; code="*" /> <referenceRange> < observationRange> <text>31-37</text> < /observationRange> </referenceRange> </observation& gt; </component> <component> <observation moodCode="EVN" classCode="OBS"> <templateId root="2.16.840.1.890478.10.20.22.4.2" /> <id nullFlavor ="NA" /> <code codeSystem="local" code=" 100.0750" displayName="RDW STANDARD DEVIATION" /> &lt ;statusCode code="completed" /> <effectiveTime value=& quot;482691504455" /> <value unit="FL" xsi:type=& quot;PQ" value="54.1" /> <interpretationCode codeSystem=& quot;local" code="*" /> <referenceRange> <observationRange> <text>36.9-50.2</text> </observationRange> </referenceRange> </ observation> </component> <component> < observation moodCode="EVN" classCode="OBS"> < templateId root="2.16.840.1.726805.10.20.22.4.2" /><id nullFlavor="NA" /> <code codeSystem="local" code="100.0850" displayName="PLT - PLATELET COUNT" /> <statusCode code="completed" /> < effectiveTime value="143487553272" /> <valueunit=" T/MM3" xsi:type="PQ" value="222" /> < referenceRange> <observationRange> <text> 130-400</text> </observationRange> </ referenceRange> </observation> </component> < component> <observation moodCode="EVN" classCode=" OBS"> <templateId root="2.16.840.1.600353.10.20.22.4.2& quot; /> <id nullFlavor="NA" /> <code codeSystem="local" code="100.0950" displayName="MEAN PLATELET VOLUME" /> <statusCode code="completed" / > <effectiveTime value="324148123930" /> & lt;value unit="UM3" xsi:type="PQ" value="9.6" /&gt ; <referenceRange> <observationRange> <text>9.4-12.4</text> </observationRange> </referenceRange> </observation> </component> <component> <observation moodCode="EVN" classCode=& quot;OBS"> <templateId root=" 2.16.840.1.320534.10.20.22.4.2" /> <id nullFlavor="NA& quot; /> <code codeSystem="local" code="100.1650& quot; displayName="NEUTROPHILS % (MANUAL)" /> < statusCode code="completed" /> <effectiveTime value=& quot;911657752516" /> <value unit="%" xsi: type="PQ" value="73.0" /> < interpretationCode codeSystem="local" code="*" /> <referenceRange> <observationRange> <text> 33-66</text> </observationRange> </ referenceRange> </observation> </component> < component> <observation moodCode="EVN" classCode=" OBS"> <templateId root="2.16.840.1.016415.10..22.4.2" /& gt; <id nullFlavor="NA" /> <code codeSystem ="local" code="100.1750" displayName="BAND NEUTROPHILS %" /> <statusCode code="completed" /> <effectiveTime value="901898156489" /> < value unit="%" xsi:type="PQ" value="1.0" / > <referenceRange> <observationRange> <text>0-6</text> </observationRange> </ referenceRange> </observation> </component> < component> <observation moodCode="EVN" classCode=" OBS"> <templateId root="2.16.840.1.934386.10.20.22.4.2" /& gt; <id nullFlavor="NA" /> <code codeSystem ="local" code="100.1850" displayName="LYMPHOCYTES & #37; (MANUAL)" /> <statusCode code="completed" /& gt; <effectiveTime value="488537792579" /> &lt ;value unit="%" xsi:type="PQ" value="15.0&quot ; /> <interpretationCodecodeSystem="local" code="* " /> <referenceRange> <observationRange&gt ; <text>23-45</text> </observationRange& gt; </referenceRange> </observation> </ component> <component> <observation moodCode="EVN& quot; classCode="OBS"> <templateId root=" [id number]" /> <id nullFlavor="NA& quot; /> <code codeSystem="local" code="100.1950& quot; displayName="MONOCYTES % (MANUAL)" /> < statusCode code="completed" /> <effectiveTime value=" [id number]" /> <value unit="%" xsi:type= "PQ" value="9.0" /> <referenceRange>< observationRange> <text>0-9.0</text> < /observationRange> </referenceRange> </observation& gt; </component> <component> <observation moodCode="EVN" classCode="OBS"> <templateId root="[id number]" /> <id nullFlavor ="NA" /> <code codeSystem="local" code=" 100.2049" displayName="EOSINOPHILS % (MANUAL)" /> <statusCode code="completed" /> < effectiveTime value="[id number]" /> <value unit=&quot ;%" xsi:type="PQ" value="1.0" /> & lt;referenceRange> <observationRange> <text>0-4 </text> </observationRange> </referenceRange& gt; </observation> </component> <component> <observation moodCode="EVN" classCode="OBS"> & lt;templateId root="2.16.840.1.287130.10.20.22.4.2" /> &lt ;id nullFlavor="NA" /> <code codeSystem="local& quot; code="100.2149" displayName="BASOPHILS % (MANUAL)& quot; /> <statusCode code="completed" /> & lt;effectiveTime value="057366742107" /> <value unit=& quot;%" xsi:type="PQ" value="1.0" /> <referenceRange> <observationRange> <text& gt;0-2</text> </observationRange> </ referenceRange> </observation> </component>< component> <observation moodCode="EVN" classCode=" OBS"> <templateId root="2.16.840.1.337578.10.20.22.4.2" /> <id nullFlavor="NA" /> <code codeSystem="local" code="100.2400" displayName=" PROLYMPHOCYTES %" /> <statusCode code=" completed" /> <effectiveTime value="926749429045" /> <value unit="T/MM3" xsi:type="PQ" value=& quot;6.3" /> <referenceRange> <observationRange> <text>1.8-7.7</text> </observationRange& gt; </referenceRange> </observation> </ component> <component> <observation moodCode="EVN& quot; classCode="OBS"> <templateId root=" 2.16.840.1.532837.10.20.22.4.2" /> <id nullFlavor="NA& quot; /> <code codeSystem="local" code="100.2450& quot; displayName="PLASMA CELLS %" /> < statusCode code="completed" /> <effectiveTime value=&quot ;835262703994" /> <value unit="T/MM3" xsi:type=& quot;PQ" value="0.1" /> <referenceRange> <observationRange> <text>NRG</text> </observationRange> </referenceRange> </ observation> </component> <component> < observation moodCode="EVN" classCode="OBS"> < templateId root="2.16.840.1.946936.10.20.22.4.2" /> < id nullFlavor="NA" /> <code codeSystem="local&quot ; code="100.2650" displayName="NEUTROPHILS # (MANUAL)" /&gt ; <statusCode code="completed" /><effectiveTime value="689495511139" /> <value unit="T/MM3" xsi:type="PQ" value="0.8" /> <referenceRange& gt; <observationRange> <text>0-0.8</text& gt; </observationRange> </referenceRange> </ observation> </component> <component> < observation moodCode="EVN" classCode="OBS"> < templateId root="2.16.840.1.042891.10.20.22.4.2" /> < id nullFlavor="NA" /> <code codeSystem="local&quot ; code="100.2750" displayName="MONOCYTES # (MANUAL)" /> <statusCode code="completed" /> < effectiveTime value="313799888605" /> <value unit=&quot ;T/MM3" xsi:type="PQ" value="0.1" /> < referenceRange> <observationRange> <text> 0-0.5</text> </observationRange> </ referenceRange> </observation> </component> < component> <observation moodCode="EVN" classCode="OBS" > <templateId root="2.16.840.1.212558.10.20.22.4.2" /& gt; <id nullFlavor="NA" /> <code codeSystem=& quot;local" code="100.2850" displayName="BASOPHILS # (MANUAL )" /> <statusCode code="completed" /> <effectiveTime value="164756272026" /> <value unit=& quot;T/MM3" xsi:type="PQ" value="0.1" /> & lt;referenceRange> <observationRange> <text&gt ;0-0.2</text> </observationRange> </ referenceRange> </observation> </component> < component> <observation moodCode="EVN" classCode=" OBS"> <templateId root="2.16.840.1.855606.10.20.22.4.2& quot; /> <id nullFlavor="NA" /> <code codeSystem="local" code="100.2550" displayName=" Lymphocytes # (Manual)" /> <statusCode code="completed& quot; /> <effectiveTime value="019016812248" /> <value unit="T/MM3" xsi:type="PQ" value="1.3& quot; /> <referenceRange> <observationRange> <text>1-4.8</text> </observationRange> </referenceRange> </observation> </component> <component> <observation moodCode="EVN" classCode="OBS"> <templateId root=" 2.16.840.1.283112.10.20.22.4.2" /> <id nullFlavor="NA& quot; /> <codecodeSystem="local" code="100.4565& quot; displayName="LRBCMOR" /> <statusCode code="completed& quot; /> <effectiveTime value="220058655046" /> <value unit="" xsi:type="PQ" value="Normal& quot; /> <referenceRange> <observationRange> <text>NRG</text> </observationRange> </referenceRange> </observation> </ component> </organizer> </entry> <entry> < organizer moodCode="EVN" classCode="BATTERY"> < templateId root="2.16.840.1.109094.10.20.22.4.1" /> <id nullFlavor="NA" /> <code codeSystem="local" code= "LBMP" displayName="L200.0050" /> <statusCode code="completed" /> <component> <observation moodCode="EVN" classCode="OBS"> <templateId root="2.16.840.1.166227.10.20.22.4.2" /> <id nullFlavor ="NA" /> <code codeSystem="local" code=" 300.0400" displayName="FUNGAL CULTURE." /> < statusCodecode="completed" /> <effectiveTime value=& quot;156183878121" /> <value unit="MG/DL" xsi:type=& quot;PQ" value="0.8" /> <referenceRange> <observationRange> <text>0.7-1.2</text> </observationRange> </referenceRange> </ observation> </component> <component> < observation moodCode="EVN" classCode="OBS"> < templateId root="2.16.840.1.106216.10.20.22.4.2" /> <id nullFlavor="NA" /> <code codeSystem="local" code="300.0450" displayName="FUNGAL CULTURE, BLOOD." /> <statusCode code="completed" /> < effectiveTime value="419345777321" /> <value unit="RATIO& quot; xsi:type="PQ" value="34" /> < interpretationCode codeSystem="local" code="*" /> <referenceRange> <observationRange> < text>6-26</text> </observationRange> </ referenceRange> </observation> </component> < component> <observation moodCode="EVN" classCode=" OBS"> <templateId root="2.16.840.1.501519.10.20.22.4.2& quot; /> <id nullFlavor="NA" /> <code codeSystem="local" code="300.0100" displayName="NA - Sodium" /> <statusCode code="completed" /> & lt;effectiveTime value="278942250892" /> <value unit=& quot;MEQ/L"xsi:type="PQ" value="142" /> &lt ;referenceRange> <observationRange> <text&gt ;134-144</text> </observationRange> </ referenceRange> </observation> </component> < component> <observation moodCode="EVN" classCode=" OBS"> <templateId root="2.16.840.1.058362.10.20.22.4.2& quot; /> <id nullFlavor="NA" /> <code codeSystem="local" code="300.0150" displayName=" Potassium" /> <statusCode code="completed" /> <effectiveTime value="522549200716" /> < value unit="MEQ/L" xsi:type="PQ" value="4.2" /&gt ; <referenceRange> <observationRange> <text>3.6-5</text> </observationRange> </referenceRange> </observation> </component> <component> <observation moodCode="EVN" classCode= "OBS"> <templateId root=" 2.16.840.1.210271.10.20.22.4.2" /> <id nullFlavor="NA& quot; /><code codeSystem="local" code="300.0200" displayName="Chloride" /> <statusCode code=" completed" /> <effectiveTime value="189019778253" /> <value unit="MEQ/L" xsi:type="PQ" value=& quot;102" /> <referenceRange> < observationRange> <text>98-107</text> &lt ;/observationRange> </referenceRange> </observation> </component> <component> <observation moodCode=& quot;EVN" classCode="OBS"> <templateId root=" 2.16.840.1.755273.10.20.22.4.2" /> <id nullFlavor="NA& quot; /> <code codeSystem="local" code="300.0250& quot; displayName="CO2 - Carbon Dioxide" /> <statusCode code= "completed" /> <effectiveTime value="809341866849& quot; /> <value unit="MEQ/L" xsi:type="PQ" value="32" /> <interpretationCode codeSystem=" local" code="*" /> <referenceRange> < observationRange> <text>22-30</text> < /observationRange> </referenceRange> </observation& gt; </component> <component> <observation moodCode="EVN" classCode="OBS"> <templateId root="2.16.840.1.146903.10..22.4.2" /> <id nullFlavor ="NA" /> <code codeSystem="local" code=" 300.0300" displayName="Anion Gap" /> <statusCode code="completed" /> <effectiveTime value=" 864479602568" /> <value unit="MEQ/L" xsi:type=& quot;PQ" value="8" /> <referenceRange> <observationRange> <text>5-15</text> </observationRange> </referenceRange> </ observation> </component> <component> < observation moodCode="EVN" classCode="OBS"> < templateId root="2.16.840.1.333461.10.20.22.4.2" /> < id nullFlavor="NA" /> <code codeSystem="local&quot ; code="300.0350" displayName="BUN - Blood Urea Nitrogen" /& gt; <statusCode code="completed" /> < effectiveTime value="641204080575" /> <value unit=&quot ;MG/DL" xsi:type="PQ" value="27.0" /> < interpretationCodecodeSystem="local" code="*" /> <referenceRange> <observationRange> < text>7-17</text> </observationRange> </ referenceRange> </observation> </component> < component> <observation moodCode="EVN" classCode=" OBS"> <templateId root="2.16.840.1.467111.10.20.22.4.2& quot; /> <id nullFlavor="NA" /> <code codeSystem="local" code="300.0410" displayName=" Glomerular Filtration Rate" /> <statusCode code=" completed" /> <effectiveTime value="616556817158" /> <value unit="" xsi:type="PQ" value="71&quot ; /> <referenceRange> <observationRange> <text>NRG</text> </observationRange> </referenceRange> </observation> </component&gt ; <component> <observation moodCode="EVN" classCode=& quot;OBS"> <templateId root=" 2.16.840.1.269385.10.20.22.4.2" /> <id nullFlavor="NA& quot; /> <code codeSystem="local" code="300.0500& quot; displayName="Glucose" /> <statusCode code=" completed" /> <effectiveTime value="917422332260" /> <value unit="MG/DL" xsi:type="PQ" value=& quot;73" /> <referenceRange> < observationRange> <text>65-110</text> </ observationRange> </referenceRange> </observation&gt ; </component> <component> <observation moodCode ="EVN" classCode="OBS"> <templateId root=& quot;2.16.840.1.701106.10.20.22.4.2" /> <id nullFlavor=&quot ;NA" /> <code codeSystem="local" code=" 300.2000" displayName="Osmolality,Calculated" /> < statusCode code="completed" /> <effectiveTime value=& quot;615007261029" /> <value unit="MOSM/KG" xsi: type="PQ" value="277" /> <referenceRange> <observationRange> <text>261-280</text& gt; </observationRange> </referenceRange> & lt;/observation> </component> <component> < observation moodCode="EVN" classCode="OBS"> < templateId root="2.16.840.1.826946.10.20.22.4.2" /> < id nullFlavor="NA" /> <code codeSystem="local&quot ; code="300.2200" displayName="Calcium" /> < statusCode code="completed" /> <effectiveTime value=& quot;335513783637" /> <value unit="MG/DL" xsi:type ="PQ" value="9.0" /> <referenceRange> <observationRange> <text>8.4-10.2</text> </observationRange> </referenceRange> </ observation> </component> <component> < observation moodCode="EVN" classCode="OBS"> < templateId root="2.16.840.1.039216.10.20.22.4.2" /> < id nullFlavor="NA" /> <code codeSystem="local&quot ; code="300.0095" displayName="LICTERUS" /> < statusCode code="completed" /> <effectiveTime value=& quot;854226345881" /> <value unit="" xsi:type=& quot;PQ" value="< 2" /> <referenceRange&gt ; <observationRange> <text>0-7</text> </observationRange> </referenceRange> </ observation> </component> <component> < observation moodCode="EVN" classCode="OBS"> < templateId root="2.16.840.1.111977.10.20.22.4.2" /> < id nullFlavor="NA" /> <code codeSystem="local&quot ; code="300.0096" displayName="LHEMOLYSIS" /> & lt;statusCode code="completed" /> <effectiveTime value= "908520703927" /> <value unit="" xsi:type=& quot;PQ" value="< 15" /> <referenceRange&gt ; <observationRange> <text>0-25</text> </observationRange> </referenceRange> < /observation> </component> <component> < observation moodCode="EVN" classCode="OBS"> < templateId root="2.16.840.1.074496.10.20.22.4.2" /> < id nullFlavor="NA" /> <code codeSystem="local&quot ; code="300.0097" displayName="LTURBIDITY" /> & lt;statusCode code="completed" /><effectiveTime value=" 003807793562" /> <value unit="" xsi:type="PQ& quot; value="< 20" /> <referenceRange> <observationRange> <text>0-20</text> </observationRange> </referenceRange> </ observation> </component> </organizer> </entry> & lt;entry> <organizer moodCode="EVN" classCode="BATTERY& quot;> <templateId root="2.16.840.1.897734.10.20.22.4.1" /& gt; <id nullFlavor="NA" /> <code codeSystem=" local" code="LBGM" displayName="L900.0530" /> & lt;statusCode code="completed" /> <component> &lt ;observation moodCode="EVN" classCode="OBS"> &lt ;templateId root="2.16.840.1.218279.10.20.22.4.2" /> < id nullFlavor="NA" /> <code codeSystem="local&quot ; code="850.0100" displayName="Glucometer" /> & lt;statusCode code="completed" /> <effectiveTime value= "453635705711" /> <value unit="mg/dL" xsi: type="PQ" value="108" /> <referenceRange> <observationRange> <text>65-110</text&gt ; </observationRange> </referenceRange> & lt;/observation> </component> </organizer> </entry&gt ; <entry> <organizer moodCode="EVN" classCode=" BATTERY"> <templateId root="2.16.840.1.678804.10.20.22.4.1& quot; /> <id nullFlavor="NA" /> <code codeSystem ="local" code="LBGM" displayName="L900.0530" /&gt ; <statusCode code="completed" /> <component> <observation moodCode="EVN" classCode="OBS"> <templateId root="2.16.840.1.702088.10.20.22.4.2" /> <id nullFlavor="NA" /><code codeSystem="local&quot ; code="850.0100" displayName="Glucometer" /> & lt;statusCode code="completed" /> <effectiveTime value= "169304991090" /> <value unit="mg/dL" xsi: type="PQ" value="115" /> <referenceRange> <observationRange> <text>65-110</text&gt ; </observationRange> </referenceRange> < /observation> </component> </organizer> </entry> <entry> <organizer moodCode="EVN" classCode="BATTERY& quot;> <templateId root="2.16.840.1.237387.10.20.22.4.1" /& gt; <id nullFlavor="NA" /> <code codeSystem=" local" code="LESR-MK" displayName="L100.6375" /> <statusCode code="completed" /> <component> <observation moodCode="EVN" classCode="OBS"> <templateId root="2.16.840.1.866037.10.20.22.4.2" /> <id nullFlavor="NA" /> <code codeSystem=" local" code="100.6375" displayName="ESR - MK" /> <statusCode code="completed" /> < effectiveTime value="890059079575" /> <value unit=&quot ;MM/HR" xsi:type="PQ" value="78" /> < interpretationCode codeSystem="local" code="*" /> <referenceRange> <observationRange> < text>0-20</text> </observationRange> </ referenceRange> </observation> </component> </ organizer> </entry> <entry> <organizer moodCode="EVN " classCode="BATTERY"> <templateId root=" 2.16.840.1.883786.10.20.22.4.1" /> <id nullFlavor="NA&quot ; /> <code codeSystem="local" code="LMAG" displayName="L200.2000" /> <statusCode code="completed " /> <component> <observation moodCode="EVN& quot; classCode="OBS"> <templateId root=" 2.16.840.1.130364.10.20.22.4.2" /> <id nullFlavor="NA" / > <code codeSystem="local" code="300.2350" displayName="MAG - Magnesium" /> <statusCode code=&quot ;completed" /> <effectiveTime value="082094941548&quot ; /> <value unit="MG/DL" xsi:type="PQ" value= "1.9" /> <referenceRange> < observationRange> <text>1.6-2.3</text> & lt;/observationRange> </referenceRange> </ observation> </component> </organizer> </entry> & lt;entry> <organizer moodCode="EVN" classCode="BATTERY& quot;> <templateId root="2.16.840.1.637160.10.20.22.4.1" /& gt; <id nullFlavor="NA" /> <code codeSystem=" local" code="LTSH" displayName="L200.3850" /> & lt;statusCode code="completed" /> <component> &lt ;observation moodCode="EVN" classCode="OBS"> &lt ;templateId root="2.16.840.1.729402.10.20.22.4.2" /> < id nullFlavor="NA" /> <code codeSystem="local&quot ; code="300.5500" displayName="TSH - Thyroid Stim Hormone" / > <statusCode code="completed" /> < effectiveTime value="177072370309" /> <valueunit=" MIU/L" xsi:type="PQ" value="2.16" /> < referenceRange> <observationRange> <text> 0.47-4.68</text> </observationRange> </referenceRange&gt ; </observation> </component> </organizer> &lt ;/entry> <entry> <organizer moodCode="EVN" classCode=& quot;BATTERY"> <templateId root=" 2.16.840.1.766634.10.20.22.4.1" /> <id nullFlavor="NA&quot ; /> <code codeSystem="local" code="LCBC" displayName="L100.0050" /> <statusCode code="completed " /> <component> <observation moodCode="EVN& quot; classCode="OBS"> <templateId root=" 2.16.840.1.330426.10.20.22.4.2" /> <id nullFlavor="NA& quot; /> <code codeSystem="local" code="100.0150& quot; displayName="WBC - WHITE BLOOD COUNT" /> < statusCode code="completed" /> <effectiveTime value=& quot;994549479242" /> <value unit="T/MM3" xsi:type ="PQ" value="13.6" /> <interpretationCode codeSystem="local" code="*" /> < referenceRange> <observationRange> <text>4.5-11.0 </text> </observationRange> </referenceRange& gt; </observation> </component> <component> <observation moodCode="EVN" classCode="OBS"> &lt ;templateId root="2.16.840.1.458973.10.20.22.4.2" /> < id nullFlavor="NA" /> <code codeSystem="local&quot ; code="100.0250" displayName="RED BLOOD COUNT" /> <statusCode code="completed" /> <effectiveTime value=& quot;874856045360" /> <value unit="M/MM3"xsi:type= "PQ" value="3.99" /> <interpretationCode codeSystem="local" code="*" /> < referenceRange> <observationRange> <text> 4.00-5.20</text> </observationRange> </ referenceRange> </observation> </component> < component> <observation moodCode="EVN" classCode="OBS& quot;> <templateId root="2.16.840.1.692140.10.20.22.4.2&quot ; /> <id nullFlavor="NA" /> <code codeSystem="local" code="100.0300" displayName="HGB - HEMOGLOBIN" /> <statusCode code="completed" /> <effectiveTimevalue="364613011153" /> < value unit="GM/DL" xsi:type="PQ" value="11.4" /&gt ; <interpretationCode codeSystem="local" code="*&quot ; /> <referenceRange> <observationRange> <text>12-16</text> </observationRange> </referenceRange> </observation> </component> <component> <observation moodCode="EVN" classCode ="OBS"> <templateId root=" 2.16.840.1.296274.10.20.22.4.2" /> <id nullFlavor="NA& quot; /> <code codeSystem="local" code="100.0400& quot; displayName="HCT - HEMATOCRIT" /><statusCode code=" completed" /> <effectiveTime value="764537679890" /> <value unit="%" xsi:type="PQ" value="35.7" /> <interpretationCode codeSystem=" local" code="*" /> <referenceRange> < observationRange> <text>36-46</text> < /observationRange> </referenceRange> </observation& gt; </component> <component> <observation moodCode="EVN" classCode="OBS"> <templateId root="2.16.840.1.580505.10.20.22.4.2" /> <id nullFlavor ="NA" /> <code codeSystem="local" code=" 100.0550" displayName="MEAN CORPUSCULAR VOLUME" /> & lt;statusCodecode="completed" /> <effectiveTime value=& quot;925546530263" /> <value unit="UM3" xsi:type=" PQ" value="89.5" /> <referenceRange> <observationRange> <text>80-100</text> </observationRange> </referenceRange> </ observation> </component> <component> < observation moodCode="EVN" classCode="OBS"> < templateId root="2.16.840.1.883822.10.20.22.4.2" /> <id nullFlavor="NA" /> <code codeSystem="local" code="100.0600" displayName="MEAN CORPUSCULAR HGB" /> <statusCode code="completed" /> < effectiveTime value="" /> <value unit=&quot ;UUG" xsi:type="PQ" value="28.6" /> < referenceRange> <observationRange> <text> 26-34</text> </observationRange> </referenceRange> </observation> </component> <component> <observation moodCode="EVN" classCode="OBS"> <templateId root="2.16.840.1.685349.10.20.22.4.2" /> <id nullFlavor="NA" /> <code codeSystem=" local" code="100.0650" displayName="MEAN CORPUSCULAR HGB CONC(MCHC" /> <statusCode code="completed" /> <effectiveTime value="720237291915" /> < value unit="GM/DL" xsi:type="PQ" value="31.9" /&gt ; <referenceRange> <observationRange> <text>31-37</text> </observationRange> </ referenceRange> </observation> </component> < component> <observation moodCode="EVN" classCode=" OBS"> <templateId root="2.16.840.1.267271.10.20.22.4.2& quot; /> <id nullFlavor="NA" /> <code codeSystem= "local" code="100.0750" displayName="RDW STANDARD DEVIATION" /> <statusCode code="completed" /> <effectiveTime value="830747048259" /> < value unit="FL" xsi:type="PQ" value="52.0" /> <interpretationCode codeSystem="local" code="*" /> <referenceRange> <observationRange> & lt;text>36.9-50.2</text> </observationRange> </referenceRange> </observation> </component> < component> <observation moodCode="EVN" classCode=" OBS"> <templateId root="2.16.840.1.708175.10.20.22.4.2&quot ; /> <id nullFlavor="NA" /> <code codeSystem="local" code="100.0850" displayName="PLT - PLATELET COUNT" /> <statusCode code="completed" /& gt; <effectiveTime value="770624839733" /> < value unit="T/MM3" xsi:type="PQ" value="294" /&gt ; <referenceRange> <observationRange> <text>130-400</text> </observationRange> </referenceRange> </observation> </component> <component> <observation moodCode="EVN" classCode="OBS"> <templateId root=" 2.16.840.1.337235.10.20.22.4.2" /> <id nullFlavor="NA& quot; /> <code codeSystem="local" code="100.0950& quot; displayName="MEAN PLATELET VOLUME" /> < statusCode code="completed" /> <effectiveTime value=" 172607797275" /> <value unit="UM3" xsi:type=" PQ" value="9.8" /> <referenceRange> <observationRange> <text>9.4-12.4</text> </observationRange> </referenceRange> </ observation> </component> <component> < observation moodCode="EVN" classCode="OBS"> < templateId root="2.16.840.1.220782.10.20.22.4.2" /> < id nullFlavor="NA" /> <code codeSystem="local&quot ; code="100.1050" displayName="NEUTROPHILS % (AUTO)&quot ; /> <statusCode code="completed" /> < effectiveTime value="436636073714" /> <value unit=&quot ;%" xsi:type="PQ" value="82.7" /> & lt;interpretationCode codeSystem="local" code="*" /> <referenceRange> <observationRange> & lt;text>33-66</text> </observationRange> < /referenceRange> </observation> </component> &lt ;component> <observation moodCode="EVN" classCode="OBS& quot;> <templateId root="2.16.840.1.983834.10.20.22.4.2&quot ; /> <id nullFlavor="NA" /> <code codeSystem="local" code="100.1100" displayName=" LYMPHOCYTES% (AUTO)" /> <statusCode code=" completed" /> <effectiveTime value="262947383648" /> <value unit="%" xsi:type="PQ" value="9.4" /> <interpretationCode codeSystem=" local" code="*" /> <referenceRange> <observationRange> <text>23-45</text> &lt ;/observationRange> </referenceRange> </observation& gt; </component> <component> <observation moodCode="EVN" classCode="OBS"> <templateId root="2.16.840.1.398758.10.20.22.4.2" /> <id nullFlavor ="NA" /> <code codeSystem="local" code=" 100.1150" displayName="MONOCYTES % (AUTO)" /> <statusCode code="completed" /> <effectiveTime value="976364293548" /> <value unit="%& quot; xsi:type="PQ" value="6.3" /> < referenceRange> <observationRange> <text>0 -9.0</text> </observationRange> </ referenceRange> </observation> </component> < component> <observation moodCode="EVN" classCode=" OBS"> <templateId root="2.16.840.1.351885.10.20.22.4.2& quot; /> <id nullFlavor="NA" /> <code codeSystem="local" code="100.1200" displayName=" EOSINOPHILS % (AUTO)" /> <statusCode code=" completed" /> <effectiveTime value="812189153756" /> <value unit="%" xsi:type="PQ" value="0.6" /> <referenceRange> < observationRange> <text>0-4</text> </ observationRange> </referenceRange> </observation&gt ; </component> <component> <observation moodCode ="EVN" classCode="OBS"> <templateId root=& quot;2.16.840.1.834310.10.20.22.4.2" /> <id nullFlavor=&quot ;NA" /><code codeSystem="local" code="100.1250" displayName="BASOPHILS % (AUTO)" /> < statusCode code="completed" /> <effectiveTime value=& quot;817792145888" /> <value unit="%" xsi: type="PQ" value="0.2" /> <referenceRange> <observationRange> <text>0-2</text> </observationRange> </referenceRange> &lt ;/observation> </component> <component> < observation moodCode="EVN" classCode="OBS"> < templateId root="2.16.840.1.840805.10.20.22.4.2" /> < id nullFlavor="NA" /><code codeSystem="local" code=& quot;100.1275" displayName="IMMATURE GRANULOCYTE % (AUTO)&quot ; /> <statusCode code="completed" /> < effectiveTime value="070037602054" /> <value unit=&quot ;%" xsi:type="PQ" value="0.8" /> & lt;interpretationCode codeSystem="local" code="*" /> <referenceRange> <observationRange> &lt ;text>0.0-0.5</text> </observationRange> < /referenceRange> </observation> </component> &lt ;component> <observation moodCode="EVN" classCode=" OBS"> <templateId root="[id number]& quot; /> <id nullFlavor="NA" /><code codeSystem=& quot;local" code="100.1300" displayName="NEUTROPHILS # (AUTO )" /> <statusCode code="completed" /> <effectiveTime value="[id number]" /> <value unit=& quot;T/MM3" xsi:type="PQ" value="11.2" /> & lt;interpretationCode codeSystem="local" code="*" /> <referenceRange> <observationRange> & lt;text>1.8-7.7</text> </observationRange> & lt;/referenceRange> </observation> </component> < component> <observation moodCode="EVN" classCode=" OBS"> <templateId root="[id number]& quot; /> <id nullFlavor="NA" /> <code codeSystem="local" code="100.1350" displayName=" LYMPHOCYTES # (AUTO)" /> <statusCode code="completed" /& gt; <effectiveTime value="579918773867" /> &lt ;value unit="T/MM3" xsi:type="PQ" value="1.3" /&gt ; <referenceRange> <observationRange> <text>1-4.8</text> </observationRange> </referenceRange> </observation> </component> <component> <observation moodCode="EVN" classCode= "OBS"> <templateId root=" 2.16.840.1.929696.10.20.22.4.2" /> <id nullFlavor="NA& quot; /> <code codeSystem="local" code="100.1400& quot; displayName="MONOCYTES # (AUTO)" /> <statusCode code="completed" /> <effectiveTime value=" 353230804521" /> <value unit="T/MM3" xsi:type=& quot;PQ" value="0.9" /> <interpretationCode codeSystem ="local" code="*" /> <referenceRange> <observationRange> <text>0-0.8</text> </observationRange> </referenceRange> </ observation> </component> <component> < observation moodCode="EVN" classCode="OBS"> < templateId root="2.16.840.1.193564.10.20.22.4.2" /><id nullFlavor="NA" /> <code codeSystem="local" code="100.1450" displayName="EOSINOPHILS # (AUTO)" /> <statusCode code="completed" /> < effectiveTime value="461525642030" /> <valueunit=" T/MM3" xsi:type="PQ" value="0.1" /> < referenceRange> <observationRange> <text> 0-0.5</text> </observationRange> </ referenceRange> </observation> </component> < component> <observation moodCode="EVN" classCode=" OBS"> <templateId root="2.16.840.1.214228.10.20.22.4.2& quot; /> <id nullFlavor="NA" /> <code codeSystem="local" code="100.1500" displayName=" BASOPHILS # (AUTO)" /> <statusCode code="completed&quot ; /> <effectiveTime value="705395234145" /> <value unit="T/MM3" xsi:type="PQ" value="0.0&quot ; /> <referenceRange> <observationRange> <text>0-0.2</text> </observationRange> </referenceRange> </observation> </component> & lt;component> <observation moodCode="EVN" classCode=&quot ;OBS"> <templateId root="2.16.840.1.139192.10.20.22.4.2&quot ; /> <id nullFlavor="NA" /> <code codeSystem="local" code="100.1525" displayName=" IMMATURE GRANULOCYTE # (AUTO)" /> <statusCode code=" completed" /> <effectiveTime value="589096669123" /> <value unit="T/MM3" xsi:type="PQ" value=& quot;0.11" /> <interpretationCode codeSystem="local& quot; code="*" /> <referenceRange> < observationRange> <text>0.00-0.03</text> </observationRange> </referenceRange> </ observation> </component> </organizer> </entry> & lt;entry> <organizer moodCode="EVN" classCode="BATTERY& quot;> <templateId root="2.16.840.1.600695.10.20.22.4.1" /& gt; <idnullFlavor="NA" /> <code codeSystem=" local" code="LBMP" displayName="L200.0050" /> & lt;statusCode code="completed" /> <component> &lt ;observation moodCode="EVN" classCode="OBS"> &lt ;templateId root="2.16.840.1.138849.10.20.22.4.2" /> < id nullFlavor="NA" /> <code codeSystem="local&quot ; code="300.0400" displayName="FUNGAL CULTURE." /> <statusCode code="completed" /> <effectiveTime value="981533854641" /> <value unit="MG/DL" xsi:type="PQ" value="0.9" /> <referenceRange& gt; <observationRange> <text>0.7-1.2</ text> </observationRange> </referenceRange> & lt;/observation> </component> <component> < observation moodCode="EVN" classCode="OBS"> < templateId root="2.16.840.1.845893.10.20.22.4.2" /> < id nullFlavor="NA" /> <code codeSystem="local&quot ; code="300.0450" displayName="FUNGAL CULTURE, BLOOD." /&gt ; <statusCode code="completed" /> < effectiveTime value="820770536058" /> <value unit=&quot ;RATIO" xsi:type="PQ" value="33" /> < interpretationCode codeSystem="local" code="*" /> <referenceRange> <observationRange> <text>6- 26</text> </observationRange> </ referenceRange> </observation> </component> < component> <observationmoodCode="EVN" classCode="OBS "> <templateId root="2.16.840.1.612577.10..22.4.2& quot; /> <id nullFlavor="NA" /> <code codeSystem="local" code="300.0100" displayName="NA - Sodium" /> <statusCode code="completed" /> &lt ;effectiveTime value="462337850552" /> <value unit=& quot;MEQ/L" xsi:type="PQ" value="146"/> &lt ;interpretationCode codeSystem="local" code="*" />< referenceRange> <observationRange> <text> 134-144</text> </observationRange> </ referenceRange> </observation> </component> < component> <observation moodCode="EVN" classCode=" OBS"> <templateId root="2.16.840.1.363406.10.20.22.4.2& quot; /> <id nullFlavor="NA" /> <code codeSystem="local" code="300.0150" displayName=" Potassium" /> <statusCode code="completed" /> <effectiveTime value="270882137110" /> < valueunit="MEQ/L" xsi:type="PQ" value="3.9" /> <referenceRange> <observationRange> <text>3.6-5</text> </observationRange> </referenceRange> </observation> </component> <component> <observation moodCode="EVN" classCode=& quot;OBS"> <templateId root=" 2.16.840.1.931723.10.20.22.4.2" /> <id nullFlavor="NA& quot; /> <code codeSystem="local" code="300.0200& quot; displayName="Chloride" /> <statusCode code=" completed" /> <effectiveTime value="507608150568" /& gt; <value unit="MEQ/L" xsi:type="PQ" value=& quot;105" /> <referenceRange> < observationRange> <text>98-107</text> &lt ;/observationRange> </referenceRange> </observation& gt; </component> <component> <observation moodCode="EVN" classCode="OBS"> <templateId root="2.16.840.1.148962.10.20.22.4.2" /> <id nullFlavor ="NA" /> <code codeSystem="local" code=" 300.0250" displayName="CO2 - Carbon Dioxide" /> < statusCode code="completed" /><effectiveTime value=" 015168956371" /> <value unit="MEQ/L" xsi:type=& quot;PQ" value="30" /> <referenceRange> <observationRange> <text>22-30</text> </observationRange> </referenceRange> </ observation> </component> <component> < observation moodCode="EVN" classCode="OBS"> < templateId root="2.16.840.1.930277.10.20.22.4.2" /> < id nullFlavor="NA" /> <code codeSystem="local&quot ; code="300.0300" displayName="Anion Gap" /> &lt ;statusCode code="completed" /> <effectiveTime value=& quot;856169631246" /> <value unit="MEQ/L" xsi:type ="PQ"value="11" /> <referenceRange> <observationRange> <text>5-15</text> & lt;/observationRange> </referenceRange> </ observation> </component> <component> < observation moodCode="EVN" classCode="OBS"> < templateId root="2.16.840.1.475424.10.20.22.4.2" /> < id nullFlavor="NA" /> <codecodeSystem="local&quot ; code="300.0350" displayName="BUN - Blood Urea Nitrogen" /& gt; <statusCode code="completed" /> < effectiveTime value="407115269494" /> <value unit=&quot ;MG/DL" xsi:type="PQ" value="30.0" /> < interpretationCode codeSystem="local" code="*" /> <referenceRange> <observationRange> < text>7-17</text> </observationRange> </ referenceRange> </observation> </component> < component> <observation moodCode="EVN" classCode=" OBS"> <templateId root="2.16.840.1.940483.10..22.4.2& quot; /> <id nullFlavor="NA" /> <code codeSystem="local" code="300.0410" displayName=" Glomerular Filtration Rate" /> <statusCode code="completed&quot ; /> <effectiveTime value="164802083125" /> <value unit="" xsi:type="PQ" value="62" /&gt ; <referenceRange> <observationRange> <text>NRG</text> </observationRange> & lt;/referenceRange> </observation> </component> <component> <observation moodCode="EVN"classCode=&quot ;OBS"> <templateId root="2.16.840.1.861196.10..22.4.2 " /> <id nullFlavor="NA" /> <code codeSystem="local" code="300.0500" displayName="Glucose " /> <statusCode code="completed" /> & lt;effectiveTime value="168422140989" /> <value unit=& quot;MG/DL" xsi:type="PQ" value="106" /> & lt;referenceRange> <observationRange> <text& gt;65-110</text></observationRange> </referenceRange&gt ; </observation> </component> <component> <observation moodCode="EVN" classCode="OBS"> <templateId root="2.16.840.1.155653.10.20.22.4.2" /> <id nullFlavor="NA" /> <code codeSystem=" local" code="300.2000" displayName="Osmolality,Calculated& quot; /> <statusCode code="completed" /> & lt;effectiveTime value="623558990481" /> <value unit=& quot;MOSM/KG" xsi:type="PQ" value="287" /> <interpretationCode codeSystem="local" code="*" /> <referenceRange> <observationRange> <text> 261-280</text> </observationRange> </ referenceRange> </observation> </component> < component> <observation moodCode="EVN" classCode=" OBS"> <templateId root="2.16.840.1.486466.10.20.22.4.2" /& gt; <id nullFlavor="NA" /> <code codeSystem ="local" code="300.2200" displayName="Calcium" /& gt; <statusCode code="completed" /> < effectiveTime value="040901626002" /> <value unit=&quot ;MG/DL" xsi:type="PQ" value="9.3" /> < referenceRange> <observationRange> <text> 8.4-10.2</text> </observationRange> </ referenceRange> </observation> </component> < component> <observation moodCode="EVN" classCode="OBS& quot;> <templateId root="2.16.840.1.108164.10.20.22.4.2&quot ; /> <id nullFlavor="NA" /> <code codeSystem="local" code="300.0095" displayName=" LICTERUS" /> <statusCode code="completed" /> <effectiveTime value="425869426987" /> < value unit="" xsi:type="PQ" value="< 2" /& gt; <referenceRange> <observationRange> < text>0-7</text> </observationRange> </ referenceRange> </observation> </component> < component> <observationmoodCode="EVN" classCode="OBS "> <templateId root="2.16.840.1.586226.10.20.22.4.2& quot; /> <id nullFlavor="NA" /> <code codeSystem="local" code="300.0096" displayName=" LHEMOLYSIS" /> <statusCode code="completed" /> <effectiveTime value="136214318858" /> <value unit=& quot;" xsi:type="PQ" value="< 15" /> <referenceRange> <observationRange> < text>0-25</text> </observationRange> </ referenceRange> </observation> </component> < component> <observation moodCode="EVN" classCode=" OBS"> <templateId root="2.16.840.1.879259.10.20.22.4.2& quot; /> <id nullFlavor="NA" /> <code codeSystem="local" code="300.0097" displayName=" LTURBIDITY" /> <statusCodecode="completed" /> <effectiveTime value="733594231710" /> <value unit="" xsi:type="PQ" value="36" /> & lt;interpretationCode codeSystem="local" code="*" /> <referenceRange> <observationRange> &lt ;text>0-20</text> </observationRange> </ referenceRange> </observation> </component> </ organizer> </entry> <entry> <organizer moodCode="EVN " classCode="BATTERY"> <templateId root=" 2.16.840.1.613335.10.20.22.4.1" /> <id nullFlavor="NA" /> <code codeSystem="local" code="LTROPI" displayName="L300.3490" /> <statusCode code="completed " /> <component> <observation moodCode="EVN& quot; classCode="OBS"> <templateId root=" 2.16.840.1.536220.10.20.22.4.2" /> <id nullFlavor="NA& quot; /> <code codeSystem="local" code="300.3500& quot; displayName="Troponin I" /> <statusCode code=& quot;completed" /> <effectiveTime value="291952113045" /> <value unit="ng/ml" xsi:type="PQ" value=& quot;0.013" /> <referenceRange> < observationRange> <text>0-0.12</text> &lt ;/observationRange> </referenceRange> </observation& gt; </component> </organizer> </entry> <entry&gt ; <organizer moodCode="EVN" classCode="BATTERY"> <templateId root="2.16.840.1.811620.10.20.22.4.1" /> & lt;idnullFlavor="NA" /> <code codeSystem="local" code="LBNP" displayName="L300.3700" /> < statusCode code="completed" /> <component> < observation moodCode="EVN" classCode="OBS"> < templateId root="2.16.840.1.729421.10.20.22.4.2" /> < id nullFlavor="NA" /> <code codeSystem="local&quot ; code="300.3700" displayName="B-Type Natriuretic Peptide" / > <statusCode code="completed" /> < effectiveTime value="998378795803" /> <value unit=&quot ;pg/mL" xsi:type="PQ" value="203" /> < interpretationCode codeSystem="local" code="*" /> <referenceRange> <observationRange> < text>0-175</text> </observationRange> </ referenceRange> </observation> </component> </ organizer> </entry> <entry> <organizer moodCode="EVN " classCode="BATTERY"> <templateId root=" 2.16.840.1.333196.10.20.22.4.1" /> <id nullFlavor="NA&quot ; /> <code codeSystem="local" code="LUAMIC" displayName="L200.0050" /> <statusCode code="completed " /> <component> <observation moodCode="EVN" classCode="OBS"> <templateId root=" 2.16.840.1.152442.10..22.4.2" /> <id nullFlavor="NA& quot; /> <code codeSystem="local" code="200.0150& quot; displayName="POTASSIUM" /> <statusCode code=&quot ;completed" /> <effectiveTime value="531092311340&quot ; /> <value unit="" xsi:type="PQ" value=&quot ;Urine, Clean Catch" /> <referenceRange> < observationRange> <text>NRG</text> </ observationRange> </referenceRange> </observation&gt ; </component> <component> <observation moodCode ="EVN" classCode="OBS"> <templateId root=& quot;2.16.840.1.526875.10..22.4.2" /> <id nullFlavor=&quot ;NA" /> <code codeSystem="local" code=" 200.0200" displayName="CHLORIDE" /> <statusCode code ="completed" /> <effectiveTime value="781645521806 " /> <value unit="" xsi:type="PQ" value= "YELLOW" /> <referenceRange> < observationRange> <text>YELLOW</text> &lt ;/observationRange> </referenceRange> </observation& gt; </component> <component> <observation moodCode="EVN" classCode="OBS"> <templateId root="2.16.840.1.091142.10.20.22.4.2" /> <id nullFlavor ="NA" /> <code codeSystem="local" code=" 200.0300" displayName="ANION GAP" /> <statusCode code="completed" /> <effectiveTime value=" 604564555309" /> <value unit="" xsi:type="PQ& quot; value="SL CLOUDY" /> <referenceRange> < observationRange> <text>NRG</text> </ observationRange> </referenceRange> </observation&gt ; </component> <component> <observation moodCode=& quot;EVN" classCode="OBS"> <templateId root=" 2.16.840.1.474238.10.20.22.4.2" /> <id nullFlavor="NA& quot; /> <code codeSystem="local" code="200.0350& quot; displayName="BLOOD UREA NITROGEN" /> <statusCode code="completed" /> <effectiveTime value=" 374198220090" /> <value unit="" xsi:type="PQ& quot; value="5.5" /> <referenceRange> &lt ;observationRange> <text>5.0-8.0</text> </ observationRange> </referenceRange> </observation&gt ; </component> <component> <observation moodCode ="EVN" classCode="OBS"> <templateId root=& quot;2.16.840.1.925667.10.20.22.4.2" /> <id nullFlavor=&quot ;NA" /> <code codeSystem="local" code=" 200.0450" displayName="BUN/CREATININE RATIO" /> < statusCode code="completed" /> <effectiveTime value=& quot;278955505187" /> <value unit="" xsi:type=& quot;PQ" value="NEGATIVE" /> <referenceRange> <observationRange> <text>NEGATIVE</text& gt; </observationRange> </referenceRange> </observation> </component> <component> &lt ;observation moodCode="EVN" classCode="OBS"> &lt ;templateId root="2.16.840.1.991264.10.20.22.4.2" /> < id nullFlavor="NA" /> <code codeSystem="local&quot ; code="200.0500" displayName="GLUCOSE" /> < statusCode code="completed" /> <effectiveTime value=" 045235594993" /> <value unit="" xsi:type="PQ& quot; value="NEGATIVE" /> <referenceRange> <observationRange> <text>NEGATIVE</text> </observationRange> </referenceRange> </ observation> </component> <component> < observation moodCode="EVN" classCode="OBS"> < templateId root="2.16.840.1.153618.10.20.22.4.2" /> < id nullFlavor="NA" /> <code codeSystem="local&quot ; code="200.0600" displayName="CALCIUM" /> < statusCode code="completed" /> <effectiveTime value=& quot;186905534148" /> <value unit="" xsi:type=& quot;PQ" value="NEGATIVE" /> <referenceRange> <observationRange> <text>NEGATIVE</text& gt; </observationRange> </referenceRange> </observation> </component> <component>< observation moodCode="EVN" classCode="OBS"> < templateId root="2.16.840.1.504170.10.20.22.4.2" /> < id nullFlavor="NA" /> <code codeSystem="local" code ="200.0750" displayName="BILIRUBIN, CONJUG &amp; UNCONJUG " /> <statusCode code="completed" /> < effectiveTime value="861157409676" /> <value unit=&quot ;" xsi:type="PQ" value="NEGATIVE" /> < referenceRange> <observationRange> <text> NEGATIVE</text> </observationRange> </ referenceRange> </observation> </component> < component> <observation moodCode="EVN" classCode=" OBS"> <templateId root="2.16.840.1.824745.10.20.22.4.2& quot; /> <id nullFlavor="NA" /> <code codeSystem="local" code="200.1000" displayName="TOTAL PROTEIN" /> <statusCode code="completed" /> <effectiveTime value="037884174292" /> < value unit="/HPF" xsi:type="PQ" value="0-1" /> <referenceRange> <observationRange> <text>0-3</text> </observationRange> & lt;/referenceRange> </observation> </component> <component> <observation moodCode="EVN" classCode=& quot;OBS"> <templateId root=" 2.16.840.1.489707.10.20.22.4.2" /> <id nullFlavor="NA& quot; /> <code codeSystem="local" code="200.1050" displayName="ALBUMIN" /> <statusCode code=" completed" /> <effectiveTime value="833026624854" /> <value unit="/HPF" xsi:type="PQ" value=& quot;20-30" /> <referenceRange> < observationRange> <text>0-5</text> </ observationRange> </referenceRange> </observation> </component> <component> <observation moodCode=" EVN" classCode="OBS"> <templateId root=" 2.16.840.1.531971.10.20.22.4.2" /> <id nullFlavor="NA& quot; /> <code codeSystem="local" code="200.1100& quot; displayName="GLOBULIN" /> <statusCode code=" completed" /> <effectiveTime value="028858078278" /> <value unit="" xsi:type="PQ" value=" Few" /> <referenceRange> <observationRange& gt; <text>NRG</text> </observationRange> </referenceRange> </observation></component> <component> <observation moodCode="EVN" classCode="OBS"> <templateId root=" 2.16.840.1.079380.10.20.22.4.2" /> <id nullFlavor="NA" /> <code codeSystem="local" code="200.1150" displayName="ALBUMIN/GLOBULIN RATIO" /> <statusCode code="completed" /> <effectiveTime value=" 062323574340" /> <value unit="" xsi:type="PQ& quot; value="0-5" /> <referenceRange> &lt ;observationRange> <text>NRG</text> </ observationRange> </referenceRange> </observation&gt ; </component> <component> <observation moodCode ="EVN" classCode="OBS"> <templateId root=& quot;2.16.840.1.555107.10.20.22.4.2" /> <id nullFlavor=&quot ;NA" /> <code codeSystem="local" code=" 200.1750" displayName="CKMB" /> <statusCode code=& quot;completed" /> <effectiveTime value="767698704071" /& gt; <value unit="" xsi:type="PQ" value="3+& quot; /> <referenceRange> <observationRange> <text>NEGATIVE</text> </observationRange > </referenceRange> </observation> </component& gt; <component> <observation moodCode="EVN" classCode="OBS"> <templateId root=" 2.16.840.1.625527.10..22.4.2" /> <id nullFlavor="NA& quot; /> <code codeSystem="local" code="200.2600& quot; displayName="GENTAMICIN,RANDOM" /> <statusCode code="completed" /> <effectiveTime value=" 383602439196" /> <value unit="" xsi:type="PQ& quot; value="Cult reflexed &setup" /> < referenceRange> <observationRange> <text> NRG</text> </observationRange> </ referenceRange> </observation> </component> < component> <observation moodCode="EVN" classCode=" OBS"> <templateId root="2.16.840.1.360618.10.20.22.4.2& quot; /> <id nullFlavor="NA" /> <code codeSystem="local" code="200.0325" displayName=" Specific [place],Urine" /> <statusCode code="completed& quot; /> <effectiveTime value="392257626171" /> < value unit="" xsi:type="PQ" value="1.015" /> <referenceRange> <observationRange> <text>1.015-1.025</text> </observationRange> </referenceRange> </observation> </component> <component> <observation moodCode="EVN" classCode= "OBS"> <templateId root=" 2.16.840.1.854359.10.20.22.4.2" /> <id nullFlavor="NA& quot; /> <code codeSystem="local" code="200.0410& quot; displayName="Leukocyte Esterase,Urine" /> < statusCode code="completed" /><effectiveTime value=" 628976422598" /> <value unit="" xsi:type="PQ& quot; value="1+" /> <referenceRange> < observationRange> <text>NEGATIVE</text> & lt;/observationRange> </referenceRange> </observation> </component> <component> <observation moodCode=&quot ;EVN" classCode="OBS"> <templateIdroot=" 2.16.840.1.735679.10..22.4.2" /> <id nullFlavor="NA& quot; /> <code codeSystem="local" code="200.0420& quot; displayName="Nitrate,Urine" /> <statusCode code=& quot;completed" /> <effectiveTimevalue="430251977600& quot; /> <value unit="" xsi:type="PQ" value=& quot;NEGATIVE" /> <referenceRange> < observationRange> <text>NEGATIVE</text> </ observationRange> </referenceRange> </observation&gt ; </component> <component> <observation moodCode ="EVN" classCode="OBS"> <templateId root=& quot;2.16.840.1.859545...22.4.2" /> <id nullFlavor=&quot ;NA" /> <code codeSystem="local" code=" 200.0740" displayName="Urobilinogen,Urine" /> < statusCode code="completed" /> <effectiveTime value=& quot;260400039486" /> <value unit="EU/DL" xsi:type ="PQ" value="0.2" /> <referenceRange> <observationRange> <text>NORMAL</text> & lt;/observationRange> </referenceRange> </ observation> </component> <component> < observation moodCode="EVN" classCode="OBS"> < templateId root="2.16.840.1.300597.10.20.22.4.2" /> < id nullFlavor="NA" /> <code codeSystem="local&quot ; code="200.0825" displayName="Occult Blood,Urine - Dipstick&quot ; /> <statusCode code="completed" /> < effectiveTime value="024314420839" /> <value unit=&quot ;" xsi:type="PQ" value="1+" /> < referenceRange> <observationRange> <text> NEGATIVE</text> </observationRange> </ referenceRange> </observation> </component> </ organizer> </entry> <entry> <organizer moodCode="EVN " classCode="BATTERY"> <templateId root=" 2.16.840.1.468996.10.20.22.4.1" /> <id nullFlavor="NA&quot ; /> <code codeSystem="local" code="MCUU" displayName="M120.0100" /> <statusCode code="completed " /> <component> <observationmoodCode="EVN& quot; classCode="OBS"> <templateId root=" 2.16.840.1.972121.10.20.22.4.2" /> <id nullFlavor="NA& quot; /> <code codeSystem="local" code="120.0100& quot; displayName="Urine Culture" /> <statusCode code=" completed" /> <effectiveTime value="267087109620" /> <value unit="CFU/ml" xsi:type="PQ" value=& quot; " /> <referenceRange> < observationRange> <text>NRG</text> </ observationRange> </referenceRange> </observation&gt ; </component> </organizer> </entry> <entry> <organizer moodCode="EVN" classCode="BATTERY"> <templateId root="2.16.840.1.592710.10.20.22.4.1" /> < id nullFlavor="NA" /> <code codeSystem="local" code="LBGM" displayName="L900.0530" /> < statusCode code="completed" /> <component> < observation moodCode="EVN" classCode="OBS"> < templateId root="2.16.840.1.142852.10.20.22.4.2" /> < id nullFlavor="NA" /> <code codeSystem="local&quot ; code="850.0100" displayName="Glucometer" /> & lt;statusCode code="completed" /> <effectiveTime value= "431347948622" /> <value unit="mg/dL" xsi:type=& quot;PQ" value="124" /> <referenceRange> <observationRange> <text>65-110</text> </observationRange> </referenceRange> </ observation> </component> </organizer> </entry> < entry> <organizer moodCode="EVN" classCode="BATTERY&quot ;> <templateId root="2.16.840.1.232292.10.20.22.4.1" /> <id nullFlavor="NA" /> <code codeSystem=" local" code="LBGM" displayName="L900.0530" /> & lt;statusCode code="completed" /> <component> &lt ;observation moodCode="EVN" classCode="OBS"> &lt ;templateId root="2.16.840.1.728139.10.20.22.4.2" /> <id nullFlavor="NA" /> <code codeSystem="local" code="850.0100" displayName="Glucometer" /> < statusCode code="completed" /> <effectiveTime value=& quot;436205556103" /> <value unit="mg/dL" xsi:type ="PQ" value="270" /> <referenceRange> <observationRange> <text>65-110</text> </observationRange> </referenceRange> < /observation> </component> </organizer> </entry> <entry> <organizer moodCode="EVN" classCode="BATTERY& quot;> <templateId root="2.16.840.1.505746.10.20.22.4.1"/& gt; <id nullFlavor="NA" /> <code codeSystem=" local" code="LTROPI" displayName="L300.3490" /> <statusCode code="completed" /> <component> <observation moodCode="EVN" classCode="OBS"> <templateId root="2.16.840.1.243902.10.20.22.4.2" /> & lt;id nullFlavor="NA" /> <code codeSystem="local& quot; code="300.3500" displayName="Troponin I" /> <statusCode code="completed" /> <effectiveTime value="286863724983" /> <value unit="ng/ml" xsi:type="PQ" value="0.015" /> < referenceRange> <observationRange> <text>0-0.12&lt ;/text> </observationRange> </referenceRange&gt ; </observation> </component> <component> <observation moodCode="EVN" classCode="OBS"> &lt ;templateId root="[id number]" /> < id nullFlavor="NA" /> <code codeSystem="local&quot ; code="300.0096" displayName="LHEMOLYSIS" /> & lt;statusCode code="completed" /> <effectiveTime value= "[id number]" /> <value unit="" xsi:type=& quot;PQ" value="< 15" /> <referenceRange&gt ; <observationRange> <text>0-25</text&gt ; </observationRange> </referenceRange> </ observation> </component> </organizer></entry> &lt ;entry> <organizer moodCode="EVN" classCode="BATTERY& quot;> <templateId root="2.16.840.1.025384.10.20.22.4.1" /& gt; <id nullFlavor="NA" /> <code codeSystem=" local" code="LCBC" displayName="L100.0050" /> & lt;statusCode code="completed" /> <component> &lt ;observation moodCode="EVN" classCode="OBS"> &lt ;templateId root="2.16.840.1.243679.10.20.22.4.2" /> < id nullFlavor="NA" /> <code codeSystem="local&quot ; code="100.0150" displayName="WBC - WHITE BLOOD COUNT" /&gt ; <statusCode code="completed" /> < effectiveTime value="025335793486" /> <value unit=&quot ;T/MM3" xsi:type="PQ" value="15.6" /> < interpretationCode codeSystem="local" code="*" /> <referenceRange> <observationRange> <text&gt ;4.5-11.0</text> </observationRange> </ referenceRange> </observation> </component> < component> <observation moodCode="EVN" classCode=" OBS"> <templateId root="2.16.840.1.496409.10.20.22.4.2& quot; /> <id nullFlavor="NA" /> <code codeSystem="local" code="100.0250" displayName="RED BLOOD COUNT" /> <statusCode code="completed" /&gt ; <effectiveTime value="019882783619" /> < value unit="M/MM3" xsi:type="PQ" value="4.10" /&gt ; <referenceRange> <observationRange> <text>4.00-5.20</text> </observationRange> </referenceRange> </observation> </component&gt ; <component> <observationmoodCode="EVN" classCode="OBS"> <templateId root=" 2.16.840.1.146758.10.20.22.4.2" /> <id nullFlavor="NA& quot; /> <code codeSystem="local" code="100.0300& quot; displayName="HGB - HEMOGLOBIN" /> <statusCode code=& quot;completed" /> <effectiveTime value="537268156096& quot; /> <value unit="GM/DL" xsi:type="PQ" value="11.4" /> <interpretationCode codeSystem=" local" code="*" /> <referenceRange> < observationRange> <text>12-16</text> < /observationRange> </referenceRange> </observation& gt; </component> <component> <observation moodCode="EVN" classCode="OBS"> <templateId root="2.16.840.1.884396.10.20.22.4.2"/> <id nullFlavor= "NA" /> <code codeSystem="local"code=" 100.0400" displayName="HCT - HEMATOCRIT" /> < statusCode code="completed" /> <effectiveTime value=& quot;234422484854" /> <value unit="%" xsi:type=& quot;PQ" value="36.8" /> <referenceRange> <observationRange> <text>36-46</text> </observationRange> </referenceRange> </ observation> </component> <component> < observation moodCode="EVN" classCode="OBS"> < templateId root="2.16.840.1.673533.10.20.22.4.2" /> <id nullFlavor="NA" /> <code codeSystem="local" code="100.0550" displayName="MEAN CORPUSCULAR VOLUME" /> <statusCode code="completed" /> < effectiveTime value="634119003986" /> <value unit="UM3&quot ; xsi:type="PQ" value="89.8" /> < referenceRange> <observationRange> <text> 80-100</text> </observationRange> </referenceRange > </observation> </component> <component> <observation moodCode="EVN" classCode="OBS"> <templateId root="2.16.840.1.153836.10.20.22.4.2" /> <id nullFlavor="NA" /> <code codeSystem="local& quot; code="100.0600" displayName="MEAN CORPUSCULAR HGB" /& gt; <statusCode code="completed" /> < effectiveTime value="207482039257" /> <value unit=&quot ;UUG" xsi:type="PQ" value="27.8" /> < referenceRange> <observationRange> <text> 26-34</text> </observationRange> </ referenceRange> </observation> </component> < component> <observation moodCode="EVN" classCode=" OBS"> <templateId root="2.16.840.1.772104.10.20.22.4.2& quot; /> <id nullFlavor="NA" /> <code codeSystem="local" code="100.0650" displayName="MEAN CORPUSCULAR HGB CONC([facility]" /> <statusCode code=" completed" /> <effectiveTime value="817983868264" /> <value unit="GM/DL" xsi:type="PQ" value=& quot;31.0" /> <referenceRange> < observationRange> <text>31-37</text> </ observationRange> </referenceRange> </observation&gt ; </component> <component> <observation moodCode ="EVN" classCode="OBS"> <templateId root=& quot;2.16.840.1.469936.10.20.22.4.2" /> <id nullFlavor=&quot ;NA" /> <code codeSystem="local" code=" 100.0750" displayName="RDW STANDARD DEVIATION" /> &lt ;statusCode code="completed" /> <effectiveTime value=& quot;026860226207" /> <value unit="FL" xsi:type=& quot;PQ" value="54.1" /> <interpretationCode codeSystem="local" code="*" /> < referenceRange> <observationRange> <text> 36.9-50.2</text> </observationRange> </ referenceRange> </observation> </component> < component> <observation moodCode="EVN" classCode=" OBS"> <templateId root="2.16.840.1.290691.10.20.22.4.2" /& gt; <id nullFlavor="NA" /> <code codeSystem ="local" code="100.0850" displayName="PLT - PLATELET COUNT" /> <statusCode code="completed" /> & lt;effectiveTime value="858219274508" /> <value unit=& quot;T/MM3" xsi:type="PQ" value="338" /> & lt;referenceRange> <observationRange> <text& gt;130-400</text> </observationRange> </ referenceRange> </observation> </component> < component> <observation moodCode="EVN" classCode=" OBS"> <templateId root="2.16.840.1.943591.10.20.22.4.2& quot; /> <id nullFlavor="NA" /> <code codeSystem="local" code="100.0950" displayName="MEAN PLATELET VOLUME" /> <statusCode code="completed" / > <effectiveTime value="830559653874" /> & lt;value unit="UM3" xsi:type="PQ" value="9.9" /&gt ; <referenceRange> <observationRange> <text>9.4-12.4</text> </observationRange> & lt;/referenceRange> </observation> </component> <component> <observation moodCode="EVN" classCode=& quot;OBS"> <templateId root=" 2.16.840.1.242570.10.20.22.4.2" /> <id nullFlavor="NA& quot; /> <code codeSystem="local" code="100.1050& quot; displayName="NEUTROPHILS % (AUTO)" /> < statusCode code="completed" /><effectiveTime value=" 928881988445" /> <value unit="%"xsi:type=& quot;PQ" value="73.6" /> <interpretationCode codeSystem="local" code="*" /> < referenceRange> <observationRange> <text> 33-66</text> </observationRange> </ referenceRange> </observation> </component> < component> <observation moodCode="EVN" classCode=" OBS"> <templateId root="2.16.840.1.786532.10.20.22.4.2& quot; /> <id nullFlavor="NA" /> <code codeSystem="local" code="100.1100" displayName=" LYMPHOCYTES % (AUTO)" /> <statusCode code=" completed" /> <effectiveTime value="148605923277" /> <value unit="%" xsi:type="PQ" value="17.7" /> <interpretationCode codeSystem=" local" code="*" /> <referenceRange> <observationRange> <text>23-45</text> </ observationRange> </referenceRange> </observation&gt ; </component> <component> <observation moodCode ="EVN" classCode="OBS"> <templateId root=& quot;2.16.840.1.998176.10.20.22.4.2" /> <id nullFlavor=&quot ;NA" /> <code codeSystem="local" code=" 100.1150" displayName="MONOCYTES % (AUTO)" /> <statusCode code="completed" /> <effectiveTime value="806952125015" /> <value unit="%& quot; xsi:type="PQ" value="7.5" /> < referenceRange> <observationRange> <text>0- 9.0</text> </observationRange> </ referenceRange> </observation> </component> < component> <observation moodCode="EVN" classCode=" OBS"> <templateId root="2.16.840.1.513899.10.20.22.4.2& quot; /> <id nullFlavor="NA" /> <code codeSystem="local" code="100.1200" displayName=" EOSINOPHILS % (AUTO)" /> <statusCode code=" completed" /> <effectiveTimevalue="990217383039" / > <value unit="%" xsi:type="PQ" value ="0.3" /> <referenceRange> < observationRange> <text>0-4</text> </ observationRange> </referenceRange> </observation&gt ; </component> <component> <observation moodCode ="EVN" classCode="OBS"> <templateId root=& quot;2.16.840.1.980756.10.20.22.4.2" /> <id nullFlavor=&quot ;NA" /> <code codeSystem="local" code=" 100.1250" displayName="BASOPHILS % (AUTO)" /> <statusCode code="completed" /> < effectiveTimevalue="035346172620" /> <value unit=" %" xsi:type="PQ" value="0.2" /> &lt ;referenceRange> <observationRange> <text&gt ;0-2</text> </observationRange> </ referenceRange> </observation> </component> < component> <observation moodCode="EVN" classCode=" OBS"> <templateId root="2.16.840.1.678323.10.20.22.4.2& quot; /> <id nullFlavor="NA" /> <code codeSystem="local" code="100.1275" displayName=" IMMATURE GRANULOCYTE % (AUTO)" /> <statusCode code=& quot;completed" /> <effectiveTime value="778693308933& quot; /> <value unit="%" xsi:type="PQ&quot ; value="0.7" /> <interpretationCode codeSystem=" local" code="*" /> <referenceRange> <observationRange> <text>0.0-0.5</text> & lt;/observationRange> </referenceRange> </ observation> </component> <component> < observation moodCode="EVN" classCode="OBS"> < templateId root="2.16.840.1.279894.10.20.22.4.2" /> < id nullFlavor="NA" /> <code codeSystem="local&quot ; code="100.1300" displayName="NEUTROPHILS # (AUTO)" /> <statusCode code="completed" /> < effectiveTime value="078274242320" /> <value unit=&quot ;T/MM3" xsi:type="PQ" value="11.5" /> < interpretationCode codeSystem="local" code="*" /> <referenceRange> <observationRange> < text>1.8-7.7</text> </observationRange> </ referenceRange> </observation> </component> < component> <observation moodCode="EVN" classCode=" OBS"> <templateId root="2.16.840.1.390919.10.20.22.4.2& quot; /> <id nullFlavor="NA" /> <code codeSystem="local" code="100.1350" displayName=" LYMPHOCYTES # (AUTO)" /><statusCode code="completed" /> <effectiveTime value="168668924716" /> < value unit="T/MM3" xsi:type="PQ" value="2.8" /&gt ; <referenceRange> <observationRange> <text>1-4.8</text> </observationRange> </referenceRange> </observation> </component> <component> <observation moodCode="EVN" classCode= "OBS"> <templateId root=" 2.16.840.1.069611.10.20.22.4.2" /> <id nullFlavor="NA& quot; /> <code codeSystem="local" code="100.1400& quot; displayName="MONOCYTES # (AUTO)" /> <statusCode code="completed" /> <effectiveTime value=" 454781235061" /> <value unit="T/MM3" xsi:type=& quot;PQ" value="1.2" /> <interpretationCode codeSystem=& quot;local" code="*" /> <referenceRange> <observationRange> <text>0-0.8</text> </ observationRange> </referenceRange> </observation&gt ; </component> <component> <observation moodCode ="EVN" classCode="OBS"> <templateId root=& quot;2.16.840.1.871585.10.20.22.4.2" /> <id nullFlavor=&quot ;NA" /> <code codeSystem="local" code=" 100.1450" displayName="EOSINOPHILS # (AUTO)" /> < statusCode code="completed" /> <effectiveTime value=& quot;930926769429" /> <value unit="T/MM3" xsi:type ="PQ" value="0.1" /> <referenceRange> <observationRange> <text>0-0.5</text> </observationRange> </referenceRange> </ observation> </component> <component> < observation moodCode="EVN" classCode="OBS"> < templateId root="2.16.840.1.131679.10.20.22.4.2" /> < id nullFlavor="NA" /> <code codeSystem="local&quot ; code="100.1500"displayName="BASOPHILS # (AUTO)" /> <statusCode code="completed" /> < effectiveTime value="493055999714" /> <value unit=&quot ;T/MM3" xsi:type="PQ" value="0.0" /> < referenceRange> <observationRange> <text>0-0.2&lt ;/text> </observationRange> </referenceRange&gt ; </observation> </component> <component> <observation moodCode="EVN" classCode="OBS"> &lt ;templateId root="2.16.840.1.119221.10.20.22.4.2" /> < id nullFlavor="NA" /> <code codeSystem="local&quot ; code="100.1525" displayName="IMMATURE GRANULOCYTE # (AUTO)&quot ; /> <statusCode code="completed"/> < effectiveTime value="455440067038" /> <value unit=&quot ;T/MM3" xsi:type="PQ" value="0.11" /> < interpretationCode codeSystem="local" code="*" /> <referenceRange> <observationRange> < text>0.00-0.03</text> </observationRange> < /referenceRange> </observation> </component> </ organizer> </entry> <entry> <organizer moodCode="EVN " classCode="BATTERY"> <templateId root=" 2.16.840.1.671911.10.20.22.4.1" /> <id nullFlavor="NA&quot ; /> <code codeSystem="local" code="LBMP" displayName="L200.0050" /> <statusCode code="completed " /> <component> <observation moodCode="EVN& quot; classCode="OBS"> <templateId root=" 2.16.840.1.095838.10..22.4.2" /> <id nullFlavor="NA& quot; /> <code codeSystem="local" code="300.0400& quot; displayName="FUNGAL CULTURE." /> <statusCode code ="completed" /> <effectiveTime value="205346926701 " /> <value unit="MG/DL" xsi:type="PQ" value="1.0" /> <referenceRange> < observationRange> <text>0.7-1.2</text> & lt;/observationRange> </referenceRange> </ observation> </component> <component> < observation moodCode="EVN" classCode="OBS"> < templateId root="2.16.840.1.570428.10..22.4.2" /> < id nullFlavor="NA" /> <code codeSystem="local" code="300.0450" displayName="FUNGAL CULTURE, BLOOD." /> <statusCode code="completed" /> < effectiveTime value="298148643595" /> <value unit=&quot ;RATIO" xsi:type="PQ" value="34" /> < interpretationCode codeSystem="local" code="*" /> <referenceRange> <observationRange> <text>6-26& lt;/text> </observationRange> </referenceRange& gt; </observation> </component> <component> <observation moodCode="EVN" classCode="OBS"> <templateId root="2.16.840.1.164338.10.20.22.4.2" /> <id nullFlavor="NA" /> <code codeSystem=" local" code="300.0100" displayName="NA - Sodium" /> <statusCode code="completed" /> < effectiveTime value="487153576781" /> <value unit=&quot ;MEQ/L" xsi:type="PQ" value="144" /> < referenceRange> <observationRange> <text> 134-144</text> </observationRange> </ referenceRange> </observation> </component> < component> <observation moodCode="EVN" classCode=" OBS"> <templateId root="2.16.840.1.813407.10.20.22.4.2& quot; /> <id nullFlavor="NA" /> <code codeSystem="local" code="300.0150" displayName=" Potassium" /> <statusCode code="completed" /> <effectiveTime value="900650318236" /> <value unit= "MEQ/L" xsi:type="PQ" value="4.3" /> & lt;referenceRange> <observationRange> <text& gt;3.6-5</text> </observationRange> </ referenceRange> </observation> </component> < component> <observation moodCode="EVN" classCode=" OBS"> <templateId root="2.16.840.1.411630.10.20.22.4.2& quot; /> <id nullFlavor="NA" /> <code codeSystem="local" code="300.0200" displayName=" Chloride" /> <statusCode code="completed" /> <effectiveTime value="239896136771" /> < value unit="MEQ/L" xsi:type="PQ" value="104" /&gt ; <referenceRange> <observationRange> <text>98-107</text> </observationRange> & lt;/referenceRange> </observation> </component> & lt;component> <observation moodCode="EVN" classCode=&quot ;OBS"> <templateId root="2.16.840.1.457699.10.20.22.4.2& quot; /> <id nullFlavor="NA" /> <code codeSystem="local" code="300.0250" displayName="CO2 - Carbon Dioxide" /> <statusCode code="completed" /& gt; <effectiveTime value="695277128391" /> &lt ;value unit="MEQ/L" xsi:type="PQ" value="31" /&gt ; <interpretationCode codeSystem="local" code="*&quot ; /> <referenceRange> <observationRange> <text>22-30</text> </observationRange>&lt ;/referenceRange> </observation> </component> & lt;component> <observation moodCode="EVN" classCode=" OBS"> <templateId root="2.16.840.1.574034.10.20.22.4.2& quot; /> <id nullFlavor="NA" /> <code codeSystem="local" code="300.0300" displayName="Anion Gap" /> <statusCode code="completed" /> <effectiveTime value="453691665065" /> <value unit="MEQ/L" xsi:type="PQ" value="9" /> <referenceRange> <observationRange> <text>5-15 </text> </observationRange> </referenceRange& gt; </observation> </component> <component> <observation moodCode="EVN" classCode="OBS"> <templateId root="2.16.840.1.593760.10.20.22.4.2" /> <id nullFlavor="NA" /> <code codeSystem=&quot ;local" code="300.0350" displayName="BUN - Blood Urea Nitrogen"/> <statusCode code="completed" /> <effectiveTime value="281889681506" /> < value unit="MG/DL" xsi:type="PQ" value="34.0" /&gt ; <interpretationCode codeSystem="local" code="*&quot ; /> <referenceRange> <observationRange> <text>7-17</text> </observationRange> </referenceRange> </observation> </component& gt; <component> <observation moodCode="EVN" classCode="OBS"> <templateId root=" 2.16.840.1.039553.10.20.22.4.2" /> <id nullFlavor="NA& quot; /> <code codeSystem="local" code="300.0410& quot; displayName="Glomerular Filtration Rate" /> < statusCode code="completed" /> <effectiveTime value=& quot;761261571015" /> <value unit="" xsi:type=& quot;PQ" value="55" /> <referenceRange> & lt;observationRange> <text>NRG</text> &lt ;/observationRange> </referenceRange> </observation& gt; </component> <component> <observation moodCode="EVN" classCode="OBS"> <templateId root="2.16.840.1.754542.10..22.4.2" /> <id nullFlavor ="NA" /> <code codeSystem="local" code=" 300.0500" displayName="Glucose" /> <statusCode code="completed" /> <effectiveTime value=" 259597230262" /> <value unit="MG/DL" xsi:type=& quot;PQ" value="99" /> <referenceRange> <observationRange> <text>65-110</text> </observationRange> </referenceRange> </ observation> </component> <component> < observation moodCode="EVN" classCode="OBS"> < templateId root="2.16.840.1.971088.10..22.4.2" /> < id nullFlavor="NA" /> <code codeSystem="local&quot ; code="300.2000" displayName="Osmolality,Calculated" /> <statusCode code="completed" /> < effectiveTime value="584080878028" /> <value unit=&quot ;MOSM/KG" xsi:type="PQ" value="285" /> < interpretationCodecodeSystem="local" code="*" /> <referenceRange> <observationRange> < text>261-280</text> </observationRange> </ referenceRange> </observation> </component> < component> <observation moodCode="EVN" classCode=" OBS"> <templateId root="2.16.840.1.353285.10.20.22.4.2& quot; /> <id nullFlavor="NA" /> <code codeSystem="local" code="300.2200" displayName="Calcium " /> <statusCode code="completed" /> & lt;effectiveTime value="807694550204" /> <value unit=& quot;MG/DL" xsi:type="PQ" value="9.3" /> & lt;referenceRange> <observationRange> <text& gt;8.4-10.2</text> </observationRange> </ referenceRange> </observation> </component> < component> <observation moodCode="EVN" classCode=" OBS"> <templateId root="2.16.840.1.160958.10.20.22.4.2& quot; /> <id nullFlavor="NA" /> <code codeSystem="local" code="300.0095" displayName=" LICTERUS" /> <statusCode code="completed" /> <effectiveTime value="556594812163" /> < value unit="" xsi:type="PQ" value="< 2" /& gt; <referenceRange> <observationRange><text& gt;0-7</text> </observationRange> </ referenceRange> </observation> </component> < component> <observation moodCode="EVN" classCode=" OBS"> <templateId root="2.16.840.1.117071.10.20.22.4.2& quot; /> <id nullFlavor="NA" /> <code codeSystem="local" code="300.0096" displayName=" LHEMOLYSIS" /> <statusCode code="completed" /> <effectiveTime value="831927511253" /> < value unit="" xsi:type="PQ" value="< 15" /& gt; <referenceRange> <observationRange> <text>0-25</text> </observationRange> </referenceRange> </observation> </component> <component> <observation moodCode="EVN" classCode ="OBS"> <templateId root=" 2.16.840.1.012703.10.20.22.4.2" /> <id nullFlavor="NA& quot; /> <code codeSystem="local" code="300.0097& quot; displayName="LTURBIDITY" /> <statusCode code=& quot;completed" /> <effectiveTime value="125980454946& quot; /><value unit="" xsi:type="PQ" value="& lt; 20" /> <referenceRange> < observationRange> <text>0-20</text> </ observationRange> </referenceRange> </observation&gt ; </component> </organizer> </entry> <entry> <organizer moodCode="EVN" classCode="BATTERY"> <templateId root="2.16.840.1.480165.10.20.22.4.1" /> < id nullFlavor="NA" /> <code codeSystem="local" code="LBGM" displayName="L900.0530" /> < statusCode code="completed" /> <component> < observation moodCode="EVN" classCode="OBS"> < templateId root="2.16.840.1.147372.10.20.22.4.2" /> <id nullFlavor="NA" /> <code codeSystem="local" code="850.0100" displayName="Glucometer" /> < statusCode code="completed" /> <effectiveTime value=& quot;217667011492" /> <value unit="mg/dL" xsi:type ="PQ" value="116" /> <referenceRange> <observationRange> <text>65-110</text> </observationRange> </referenceRange> < /observation> </component> </organizer> </entry> <entry> <organizer moodCode="EVN" classCode="BATTERY& quot;> <templateId root="2.16.840.1.839199.10.20.22.4.1" /& gt; <id nullFlavor="NA" /> <code codeSystem=" local" code="LBGM" displayName="L900.0530" /> & lt;statusCode code="completed" /> <component> &lt ;observation moodCode="EVN" classCode="OBS"> &lt ;templateId root="2.16.840.1.532633.10.20.22.4.2" /> < id nullFlavor="NA" /> <code codeSystem="local&quot ; code="850.0100"displayName="Glucometer" /> &lt ;statusCode code="completed" /> <effectiveTime value=" 353707917789" /> <value unit="mg/dL" xsi:type=& quot;PQ" value="163" /> <referenceRange> <observationRange> <text>65-110</text> </observationRange> </referenceRange> </ observation> </component> </organizer> </entry> & lt;entry> <organizer moodCode="EVN" classCode="BATTERY& quot;> <templateId root="2.16.840.1.405161.10.20.22.4.1" /& gt; <id nullFlavor="NA" /> <code codeSystem=" local" code="LBGM" displayName="L900.0530" /> & lt;statusCode code="completed" /> <component> &lt ;observation moodCode="EVN" classCode="OBS"> &lt ;templateId root="2.16.840.1.104859.10.20.22.4.2" /> < id nullFlavor="NA" /> <code codeSystem="local&quot ; code="850.0100" displayName="Glucometer" /> & lt;statusCode code="completed" /> <effectiveTime value= "586703195113" /> <value unit="mg/dL" xsi: type="PQ" value="168" /> <referenceRange> <observationRange> <text>65-110</text&gt ; </observationRange> </referenceRange> & lt;/observation> </component> </organizer> </entry&gt ; <entry> <organizer moodCode="EVN" classCode=" BATTERY"> <templateId root="2.16.840.1.130952.10.20.22.4.1& quot; /> <id nullFlavor="NA" /> <code codeSystem ="local" code="LBGM" displayName="L900.0530" /&gt ; <statusCode code="completed" /> <component> & lt;observation moodCode="EVN" classCode="OBS"> & lt;templateId root="2.16.840.1.727798.10.20.22.4.2" /> &lt ;id nullFlavor="NA" /> <code codeSystem="local" code="850.0100" displayName="Glucometer" /> < statusCode code="completed" /> <effectiveTime value=& quot;150638871445" /> <value unit="mg/dL" xsi:type ="PQ" value="158" /> <referenceRange> <observationRange> <text>65-110</text> &lt ;/observationRange> </referenceRange> </observation& gt; </component> </organizer> </entry> <entry&gt ; <organizer moodCode="EVN" classCode="BATTERY"> <templateId root="2.16.840.1.640758.10.20.22.4.1" /> & lt;id nullFlavor="NA" /> <code codeSystem="local" code="LCBC" displayName="L100.0050" /> < statusCode code="completed" /> <component> < observation moodCode="EVN" classCode="OBS"> < templateId root="2.16.840.1.989921.10.20.22.4.2" /> < id nullFlavor="NA" /> <code codeSystem="local&quot ; code="100.0150" displayName="WBC - WHITE BLOOD COUNT"/&gt ; <statusCode code="completed" /> < effectiveTime value="881949259484" /> <value unit=&quot ;T/MM3" xsi:type="PQ" value="11.8" /> < interpretationCode codeSystem="local" code="*" /> <referenceRange> <observationRange> < text>4.5-11.0</text> </observationRange> < /referenceRange> </observation> </component> &lt ;component> <observation moodCode="EVN" classCode=" OBS"> <templateId root="2.16.840.1.976643.10.20.22.4.2& quot; /> <id nullFlavor="NA" /> <code codeSystem="local" code="100.0250" displayName="RED BLOOD COUNT" /> <statusCode code="completed" /&gt ; <effectiveTime value="742150985174" /> < value unit="M/MM3" xsi:type="PQ" value="3.95" /&gt ; <interpretationCode codeSystem="local" code="*" /& gt; <referenceRange> <observationRange> <text>4.00-5.20</text> </observationRange> </referenceRange> </observation> </component> <component> <observation moodCode="EVN" classCode ="OBS"> <templateId root=" 2.16.840.1.260513.10.20.22.4.2" /> <id nullFlavor="NA" /& gt; <code codeSystem="local" code="100.0300" displayName="HGB - HEMOGLOBIN" /> <statusCode code=& quot;completed" /> <effectiveTime value="356547019348& quot; /> <value unit="GM/DL" xsi:type="PQ" value="11.0" /> <interpretationCode codeSystem=" local" code="*" /> <referenceRange> < observationRange> <text>12-16</text> < /observationRange> </referenceRange> </observation& gt; </component> <component> <observation moodCode="EVN" classCode="OBS"><templateId root=" [id number]" /> <id nullFlavor="NA& quot; /> <code codeSystem="local" code="100.0400& quot; displayName="HCT - HEMATOCRIT" /> <statusCode code="completed" /><effectiveTime value="[id number]&quot ; /> <value unit="%"xsi:type="PQ" value="35.5" /> <interpretationCode codeSystem=" local" code="*" /> <referenceRange> <observationRange> <text>36-46</text> </observationRange> </referenceRange> </ observation> </component> <component> < observation moodCode="EVN" classCode="OBS"> < templateId root="[id number]" /> < id nullFlavor="NA" /> <code codeSystem="local" code= "100.0550" displayName="MEAN CORPUSCULAR VOLUME" /> <statusCode code="completed" /> <effectiveTime value="107173667402" /> <value unit="UM3" xsi :type="PQ" value="89.9" /> <referenceRange&gt ; <observationRange> <text>80-100</text&gt ; </observationRange> </referenceRange> & lt;/observation> </component> <component> < observation moodCode="EVN" classCode="OBS"> < templateId root="2.16.840.1.810630.10..22.4.2" /> < id nullFlavor="NA" /> <code codeSystem="local&quot ; code="100.0600" displayName="MEAN CORPUSCULAR HGB" /> <statusCode code="completed" /> < effectiveTime value="671681617815" /> <value unit=&quot ;UUG" xsi:type="PQ" value="27.8" /> < referenceRange> <observationRange> <text>26-34</ text> </observationRange> </referenceRange> </observation> </component> <component> <observation moodCode="EVN" classCode="OBS"> <templateId root="2.16.840.1.161434.10.20.22.4.2" /> <id nullFlavor="NA" /> <code codeSystem=" local" code="100.0650" displayName="MEAN CORPUSCULAR HGB CONC([facility]" /> <statusCode code="completed" /> <effectiveTime value="772320388650" /> < value unit="GM/DL" xsi:type="PQ" value="31.0" /&gt ; <referenceRange> <observationRange> < text>31-37</text> </observationRange> </ referenceRange> </observation> </component> < component> <observation moodCode="EVN" classCode=" OBS"> <templateId root="2.16.840.1.388834.10.20.22.4.2& quot; /> <id nullFlavor="NA" /> <code codeSystem="local" code="100.0750" displayName="RDW STANDARD DEVIATION" /> <statusCode code="completed&quot ; /> <effectiveTime value="988620027403" /> <value unit="FL" xsi:type="PQ" value="53.4" / > <interpretationCode codeSystem="local" code="*& quot; /> <referenceRange> <observationRange> <text>36.9-50.2</text> </ observationRange> </referenceRange> </observation&gt ; </component> <component> <observation moodCode ="EVN" classCode="OBS"> <templateId root=& quot;2.16.840.1.930213.10.20.22.4.2" /> <id nullFlavor=&quot ;NA" /> <code codeSystem="local" code=" 100.0850" displayName="PLT - PLATELET COUNT" /> < statusCode code="completed" /> <effectiveTime value=& quot;368342551725" /> <value unit="T/MM3" xsi:type ="PQ" value="288" /> <referenceRange> <observationRange> <text>130-400</text> </observationRange> </referenceRange> < /observation> </component> <component> < observation moodCode="EVN" classCode="OBS"> < templateId root="2.16.840.1.094049.10.20.22.4.2" /> < id nullFlavor="NA" /> <code codeSystem="local&quot ; code="100.0950" displayName="MEAN PLATELET VOLUME" /> <statusCode code="completed" /> < effectiveTime value="242965149406" /> <value unit=&quot ;UM3" xsi:type="PQ" value="10.0" /> < referenceRange> <observationRange> <text> 9.4-12.4</text> </observationRange> </ referenceRange> </observation> </component> < component> <observation moodCode="EVN" classCode=" OBS"> <templateId root="2.16.840.1.224002.10.20.22.4.2& quot; /> <id nullFlavor="NA" /> <code codeSystem="local" code="100.1050" displayName=" NEUTROPHILS % (AUTO)" /> <statusCode code=" completed" /> <effectiveTime value="522197019467" /> <value unit="%" xsi:type="PQ" value="74.8" /> <interpretationCode codeSystem=" local" code="*" /> <referenceRange> <observationRange> <text>33-66</text> < /observationRange> </referenceRange> </observation& gt; </component> <component> <observation moodCode="EVN" classCode="OBS"> <templateId root="2.16.840.1.779007.10.20.22.4.2" /> <id nullFlavor=&quot ;NA" /> <code codeSystem="local" code=" 100.1100" displayName="LYMPHOCYTES % (AUTO)" /> <statusCode code="completed" /> <effectiveTime value="880020949316" /> <value unit="%" xsi: type="PQ" value="15.7" /><interpretationCode codeSystem="local" code="*" /> < referenceRange> <observationRange> <text> 23-45</text> </observationRange> </ referenceRange> </observation> </component> < component> <observation moodCode="EVN" classCode=" OBS"> <templateId root="2.16.840.1.751004.10.20.22.4.2& quot; /> <id nullFlavor="NA" /> <code codeSystem="local" code="100.1150" displayName=" MONOCYTES % (AUTO)" /> <statusCode code=" completed" /> <effectiveTime value="965199462649" /> <valueunit="%" xsi:type="PQ" value ="8.2" /> <referenceRange> < observationRange> <text>0-9.0</text></ observationRange> </referenceRange> </observation&gt ; </component> <component> <observation moodCode ="EVN" classCode="OBS"> <templateId root=& quot;2.16.840.1.130434.10..22.4.2" /> <id nullFlavor=&quot ;NA" /> <code codeSystem="local" code=" 100.1200" displayName="EOSINOPHILS % (AUTO)" /> <statusCode code="completed" /> <effectiveTime value="370884402717" /> <value unit="%& quot; xsi:type="PQ" value="0.6" /> < referenceRange> <observationRange> <text> 0-4</text> </observationRange> </referenceRange> </observation> </component> <component> <observation moodCode="EVN" classCode="OBS"> <templateId root="2.16.840.1.166690.10.20.22.4.2" /> & lt;id nullFlavor="NA" /> <code codeSystem="local& quot; code="100.1250" displayName="BASOPHILS % (AUTO)& quot; /> <statusCode code="completed" /> & lt;effectiveTime value="646784383728" /> <value unit=& quot;%" xsi:type="PQ" value="0.2" /> <referenceRange> <observationRange> < text>0-2</text> </observationRange> </referenceRange > </observation> </component> <component> <observation moodCode="EVN" classCode="OBS"> <templateId root="2.16.840.1.426569.10.20.22.4.2" /> <id nullFlavor="NA" /> <code codeSystem=& quot;local" code="100.1275" displayName="IMMATURE GRANULOCYTE % (AUTO)" /> <statusCodecode=" completed" /> <effectiveTime value="739328546912" /> <value unit="%" xsi:type="PQ" value=& quot;0.5" /> <referenceRange> <observationRange&gt ; <text>0.0-0.5</text> </observationRange > </referenceRange> </observation> </ component> <component> <observation moodCode="EVN& quot; classCode="OBS"> <templateId root=" 2.16.840.1.690912.10.20.22.4.2" /> <id nullFlavor="NA& quot; /> <code codeSystem="local" code="100.1300& quot; displayName="NEUTROPHILS # (AUTO)" /> < statusCode code="completed" /> <effectiveTime value=& quot;202984408415" /> <value unit="T/MM3" xsi:type=" PQ" value="8.8" /> <interpretationCode codeSystem= "local" code="*" /> <referenceRange> <observationRange> <text>1.8-7.7</text> </observationRange> </referenceRange> < /observation> </component> <component> < observation moodCode="EVN" classCode="OBS"> < templateId root="2.16.840.1.872174.10.20.22.4.2" /> < id nullFlavor="NA" /> <code codeSystem="local&quot ; code="100.1350" displayName="LYMPHOCYTES # (AUTO)" /> <statusCode code="completed" /> < effectiveTime value="654442128900" /> <value unit=&quot ;T/MM3" xsi:type="PQ" value="1.9" /> < referenceRange> <observationRange> <text>1- 4.8</text> </observationRange> </ referenceRange> </observation> </component> < component> <observation moodCode="EVN" classCode=" OBS"> <templateId root="2.16.840.1.490620.10.20.22.4.2& quot; /> <id nullFlavor="NA" /> <code codeSystem="local" code="100.1400" displayName=" MONOCYTES # (AUTO)" /> <statusCode code="completed&quot ; /> <effectiveTime value="402007755534" /> <value unit="T/MM3" xsi:type="PQ" value="1.0" / > <interpretationCode codeSystem="local" code="*& quot; /> <referenceRange> <observationRange> <text>0-0.8</text> </observationRange&gt ; </referenceRange> </observation> </ component> <component> <observation moodCode="EVN" classCode="OBS"> <templateId root=" 2.16.840.1.974329.10.20.22.4.2" /> <id nullFlavor="NA& quot; /> <code codeSystem="local" code="100.1450&quot ; displayName="EOSINOPHILS# (AUTO)" /> <statusCode code ="completed" /> <effectiveTime value="839846048381 " /> <value unit="T/MM3" xsi:type="PQ" value="0.1" /> <referenceRange> < observationRange> <text>0-0.5</text> < /observationRange> </referenceRange> </observation& gt; </component> <component> <observation moodCode="EVN" classCode="OBS"> <templateId root="2.16.840.1.177048.10.20.22.4.2" /> <id nullFlavor ="NA" /> <code codeSystem="local" code=" 100.1500" displayName="BASOPHILS # (AUTO)" /> < statusCode code="completed" /> <effectiveTime value=& quot;479739831954" /> <value unit="T/MM3" xsi:type ="PQ" value="0.0" /> <referenceRange> <observationRange> <text>0-0.2</text> & lt;/observationRange> </referenceRange> </ observation> </component> <component> < observation moodCode="EVN" classCode="OBS"> < templateId root="2.16.840.1.838966.10.20.22.4.2" /> < id nullFlavor="NA" /> <code codeSystem="local&quot ; code="100.1525" displayName="IMMATURE GRANULOCYTE # (AUTO)&quot ; /> <statusCode code="completed" /> < effectiveTime value="783865661848" /> <value unit=&quot ;T/MM3" xsi:type="PQ" value="0.06" /> < interpretationCode codeSystem="local" code="*" /> <referenceRange> <observationRange> < text>0.00-0.03</text> </observationRange> &lt ;/referenceRange> </observation> </component> </ organizer> </entry> <entry> <organizer moodCode="EVN& quot; classCode="BATTERY"> <templateId root=" 2.16.840.1.290018.10.20.22.4.1" /> <id nullFlavor="NA&quot ; /> <code codeSystem="local" code="LBMP" displayName="L200.0050" /><statusCode code="completed&quot ; /> <component> <observation moodCode="EVN" classCode="OBS"> <templateId root=" 2.16.840.1.176621.10.20.22.4.2" /> <id nullFlavor="NA& quot; /> <code codeSystem="local" code="300.0400& quot; displayName="FUNGAL CULTURE." /> <statusCode code ="completed" /> <effectiveTime value="522556507885 " /> <value unit="MG/DL" xsi:type="PQ" value="1.0" /> <referenceRange> < observationRange> <text>0.7-1.2</text> & lt;/observationRange> </referenceRange> </ observation> </component> <component> < observation moodCode="EVN" classCode="OBS"> < templateId root="2.16.840.1.655924.10.20.22.4.2" /> < id nullFlavor="NA" /> <code codeSystem="local&quot ; code="300.0450" displayName="FUNGAL CULTURE, BLOOD." /&gt ; <statusCode code="completed" /> < effectiveTime value="201489094222"/> <value unit=" RATIO" xsi:type="PQ" value="35" /> < interpretationCode codeSystem="local" code="*" /> <referenceRange> <observationRange> < text>6-26</text> </observationRange> </ referenceRange> </observation> </component> < component> <observation moodCode="EVN" classCode=" OBS"> <templateId root="2.16.840.1.390748.10.20.22.4.2& quot; /><id nullFlavor="NA" /> <code codeSystem=& quot;local" code="300.0100" displayName="NA - Sodium" / > <statusCode code="completed" /> < effectiveTime value="647326757893" /> <value unit=&quot ;MEQ/L" xsi:type="PQ" value="142" /> < referenceRange> <observationRange> <text>134- 144</text> </observationRange> </ referenceRange> </observation> </component> < component> <observation moodCode="EVN" classCode=" OBS"> <templateId root="2.16.840.1.389979.10.20.22.4.2& quot; /> <id nullFlavor="NA" /> <code codeSystem="local" code="300.0150" displayName=" Potassium" /> <statusCode code="completed" /> & lt;effectiveTime value="798977009994" /> <value unit=& quot;MEQ/L" xsi:type="PQ" value="4.4" /> & lt;referenceRange> <observationRange> <text& gt;3.6-5</text> </observationRange> </ referenceRange> </observation> </component> < component> <observation moodCode="EVN" classCode=" OBS"> <templateId root="2.16.840.1.367017.10..22.4.2& quot; /> <id nullFlavor="NA" /> <code codeSystem="local" code="300.0200" displayName=" Chloride" /> <statusCode code="completed" /> <effectiveTime value="253518463427" /> < value unit="MEQ/L" xsi:type="PQ" value="104" /&gt ; <referenceRange> <observationRange> & lt;text>98-107</text> </observationRange> &lt ;/referenceRange> </observation> </component> & lt;component> <observation moodCode="EVN" classCode=&quot ;OBS"> <templateId root="2.16.840.1.642685.10.20.22.4.2 " /> <id nullFlavor="NA" /> <code codeSystem="local" code="300.0250" displayName="CO2 - Carbon Dioxide" /> <statusCode code="completed" /& gt; <effectiveTime value="977498459905" /> &lt ;value unit="MEQ/L" xsi:type="PQ" value="30" /&gt ; <referenceRange> <observationRange> <text& gt;22-30</text> </observationRange> </ referenceRange> </observation> </component> < component> <observation moodCode="EVN" classCode=" OBS"> <templateId root="2.16.840.1.635938.10.20.22.4.2& quot; /> <id nullFlavor="NA" /> <code codeSystem="local" code="300.0300" displayName="Anion Gap" /> <statusCode code="completed" /> <effectiveTime value="588072354798" /> <value unit="MEQ/L" xsi:type="PQ" value="8" /> <referenceRange> <observationRange> < text>5-15</text> </observationRange> </ referenceRange> </observation> </component> < component> <observation moodCode="EVN" classCode=" OBS"> <templateId root="2.16.840.1.929872.10.20.22.4.2& quot; /> <id nullFlavor="NA" /> <code codeSystem="local" code="300.0350" displayName="BUN - Blood Urea Nitrogen" /> <statusCode code="completed& quot; /> <effectiveTime value="768104169582" /> <value unit="MG/DL" xsi:type="PQ" value="35.0& quot; /> <interpretationCode codeSystem="local" code=" *" /> <referenceRange> <observationRange&gt ; <text>7-17</text> </observationRange> </referenceRange> </observation> </component> <component> <observation moodCode="EVN" classCode ="OBS"> <templateId root=" 2.16.840.1.377240.10.20.22.4.2" /> <id nullFlavor="NA& quot; /> <code codeSystem="local" code="300.0410& quot; displayName="Glomerular Filtration Rate" /> < statusCode code="completed" /> <effectiveTime value=& quot;801116664124" /> <value unit="" xsi:type=& quot;PQ" value="55" /> <referenceRange> <observationRange> <text>NRG</text> </observationRange> </referenceRange> </ observation> </component> <component> < observation moodCode="EVN" classCode="OBS"> < templateId root="2.16.840.1.660138.10.20.22.4.2" /> < id nullFlavor="NA" /> <code codeSystem="local&quot ; code="300.0500"displayName="Glucose" /> < statusCode code="completed" /> <effectiveTime value=" 600314485619" /> <value unit="MG/DL" xsi:type=& quot;PQ" value="121" /> <interpretationCode codeSystem="local" code="*" /> < referenceRange> <observationRange> <text> 65-110</text> </observationRange> </ referenceRange> </observation> </component> < component> <observation moodCode="EVN" classCode=" OBS"> <templateId root="2.16.840.1.094414.10..22.4.2& quot; /> <id nullFlavor="NA" /> <code codeSystem ="local" code="300.2000" displayName="Osmolality, Calculated" /> <statusCode code="completed" /> <effectiveTimevalue="896544555895" /> < value unit="MOSM/KG" xsi:type="PQ" value="282" /& gt; <interpretationCode codeSystem="local" code="*& quot; /> <referenceRange> <observationRange> <text>261-280</text> </observationRange& gt; </referenceRange> </observation> </ component> <component> <observation moodCode="EVN& quot; classCode="OBS"> <templateId root=" 2.16.840.1.285681.10.20.22.4.2" /> <id nullFlavor="NA& quot; /> <code codeSystem="local" code="300.2200& quot; displayName="Calcium" /> <statusCode code=" completed" /> <effectiveTime value="588598417177" /> <value unit="MG/DL" xsi:type="PQ" value=& quot;9.2" /> <referenceRange> < observationRange> <text>8.4-10.2</text> & lt;/observationRange> </referenceRange> </ observation> </component> <component> < observation moodCode="EVN" classCode="OBS"> < templateId root="2.16.840.1.932877.10.20.22.4.2" /> < id nullFlavor="NA" /> <code codeSystem="local&quot ; code="300.0095" displayName="LICTERUS" /> < statusCode code="completed" /> <effectiveTime value=& quot;114005524751" /> <value unit="" xsi:type=& quot;PQ" value="< 2" /> <referenceRange&gt ; <observationRange> <text>0-7</text> </observationRange> </referenceRange> </ observation> </component> <component> < observation moodCode="EVN" classCode="OBS"> < templateId root="2.16.840.1.856696.10.20.22.4.2" /> < id nullFlavor="NA" /> <code codeSystem="local&quot ; code="300.0096" displayName="LHEMOLYSIS" /> & lt;statusCode code="completed" /> <effectiveTime value= "662129329403" /> <value unit="" xsi:type=& quot;PQ" value="< 15" /> <referenceRange&gt ; <observationRange> <text>0-25</text> </observationRange> </referenceRange> < /observation> </component> <component> < observation moodCode="EVN" classCode="OBS"> < templateId root="2.16.840.1.785925.10.20.22.4.2" /> < id nullFlavor="NA" /> <code codeSystem="local&quot ; code="300.0097" displayName="LTURBIDITY" /> & lt;statusCode code="completed" /><effectiveTime value=" 348929011637" /> <value unit="" xsi:type="PQ& quot; value="< 20" /> <referenceRange> <observationRange> <text>0-20</text> </observationRange> </referenceRange> </ observation> </component> </organizer> </entry> & lt;entry> <organizer moodCode="EVN" classCode="BATTERY& quot;> <templateId root="2.16.840.1.976670.10.20.22.4.1" /& gt; <id nullFlavor="NA" /> <code codeSystem=" local" code="LMAG" displayName="L200.2000" /> & lt;statusCode code="completed" /> <component> &lt ;observation moodCode="EVN" classCode="OBS"> &lt ;templateId root="2.16.840.1.562035.10.20.22.4.2" /> < id nullFlavor="NA" /> <code codeSystem="local&quot ; code="300.2350" displayName="MAG - Magnesium" /> <statusCode code="completed" /> <effectiveTime value="289750727348" /> <value unit="MG/DL" xsi:type="PQ" value="2.2" /> <referenceRange& gt; <observationRange> <text>1.6-2.3</ text> </observationRange> </referenceRange> </observation> </component> </organizer> </ entry> <entry> <organizer moodCode="EVN" classCode=& quot;BATTERY"> <templateId root=" 2.16.840.1.074667.10.20.22.4.1" /> <id nullFlavor="NA&quot ; /> <code codeSystem="local" code="BVHCK4Z" displayName="L200.6775" /> <statusCode code="completed " /> <component> <observation moodCode="EVN&quot ; classCode="OBS"> <templateId root=" 2.16.840.1.603666.10.20.22.4.2" /> <id nullFlavor="NA& quot; /> <code codeSystem="local" code="300.7375& quot; displayName="HgbA1c - Hemoglobin A1C" /> < statusCode code="completed" /> <effectiveTime value=& quot;775642824091" /> <value unit="%" xsi: type="PQ" value="7.2" /> <referenceRange> <observationRange> <text>6.1-7.9</text& gt; </observationRange> </referenceRange> </ observation> </component> </organizer> </entry> & lt;entry> <organizer moodCode="EVN" classCode="BATTERY& quot;> <templateId root="2.16.840.1.713437.10.20.22.4.1" /& gt; <id nullFlavor="NA" /> <code codeSystem=" local" code="LBGM" displayName="L900.0530" /> & lt;statusCode code="completed" /> <component> < observation moodCode="EVN" classCode="OBS"> < templateId root="2.16.840.1.448383.10.20.22.4.2" /> < id nullFlavor="NA" /> <code codeSystem="local&quot ; code="850.0100" displayName="Glucometer" /> & lt;statusCode code="completed" /> <effectiveTime value= "106050750216" /> <value unit="mg/dL" xsi: type="PQ"value="134" /> <referenceRange> <observationRange> <text>65-110</text> </observationRange> </referenceRange> </ observation> </component> </organizer> </entry> & lt;entry> <organizer moodCode="EVN" classCode="BATTERY& quot;> <templateId root="2.16.840.1.024898.10.20.22.4.1" /& gt; <id nullFlavor="NA" /> <code codeSystem=" local" code="LBGM" displayName="L900.0530" /> & lt;statusCode code="completed" /> <component> &lt ;observation moodCode="EVN" classCode="OBS"> &lt ;templateId root="2.16.840.1.416372.10.20.22.4.2" /> < id nullFlavor="NA" /> <code codeSystem="local&quot ; code="850.0100" displayName="Glucometer" /> < statusCode code="completed" /> <effectiveTime value=& quot;795479277172" /> <value unit="mg/dL" xsi:type ="PQ" value="176" /> <referenceRange> <observationRange> <text>65-110</text> </observationRange> </referenceRange></ observation> </component> </organizer> </entry> & lt;entry><organizer moodCode="EVN" classCode="BATTERY" > <templateId root="2.16.840.1.147843.10.20.22.4.1" /> <id nullFlavor="NA" /> <code codeSystem="local " code="LBGM" displayName="L900.0530" /> < statusCode code="completed" /> <component> < observation moodCode="EVN" classCode="OBS"> < templateId root="2.16.840.1.750576.10.20.22.4.2" /> < id nullFlavor="NA" /> <code codeSystem="local&quot ; code="850.0100" displayName="Glucometer" /> & lt;statusCode code="completed" /> <effectiveTime value= "920526734681" /> <value unit="mg/dL" xsi: type="PQ" value="253" /> <referenceRange> <observationRange> <text>65-110</text> </observationRange> </referenceRange> </ observation> </component> </organizer> </entry> & lt;entry> <organizer moodCode="EVN" classCode="BATTERY& quot;> <templateId root="2.16.840.1.923478.10.20.22.4.1" /& gt; <id nullFlavor="NA" /> <code codeSystem=" local" code="LBGM" displayName="L900.0530" /> & lt;statusCode code="completed" /> <component> &lt ;observation moodCode="EVN"classCode="OBS"> < templateId root="2.16.840.1.867235.10.20.22.4.2" /> < id nullFlavor="NA" /> <code codeSystem="local&quot ; code="850.0100" displayName="Glucometer" /> & lt;statusCode code="completed" /> <effectiveTime value= "817108270452" /> <value unit="mg/dL" xsi: type="PQ" value="327" /> <referenceRange> <observationRange> <text>65-110</text&gt ; </observationRange> </referenceRange> </ observation> </component> </organizer> </entry> & lt;entry> <organizer moodCode="EVN" classCode="BATTERY& quot;> <templateId root="2.16.840.1.520673.10.20.22.4.1" /& gt; <id nullFlavor="NA" /> <code codeSystem=" local"code="LRENAL" displayName="L300.0030" /> <statusCode code="completed" /> <component> & lt;observation moodCode="EVN" classCode="OBS"> & lt;templateId root="2.16.840.1.019970.10.20.22.4.2" /> <id nullFlavor="NA" /> <code codeSystem="local" code="300.0400" displayName="FUNGAL CULTURE." /> <statusCode code="completed" /> <effectiveTime value="001436022968" /> <value unit="MG/DL" xsi:type="PQ" value="1.1" /> <referenceRange& gt; <observationRange> <text>0.7-1.2</ text> </observationRange> </referenceRange> </observation> </component> <component> <observation moodCode="EVN" classCode="OBS"> <templateId root="2.16.840.1.930529.10.20.22.4.2" /> <id nullFlavor="NA" /> <code codeSystem=" local" code="300.0450" displayName="FUNGAL CULTURE, BLOOD.& quot; /> <statusCode code="completed" /> & lt;effectiveTime value="015638796676" /> <value unit=& quot;RATIO" xsi:type="PQ" value="40" /> &lt ;interpretationCode codeSystem="local" code="*" /> <referenceRange> <observationRange> < text>6-26</text> </observationRange> </ referenceRange> </observation> </component> < component> <observation moodCode="EVN" classCode=" OBS"> <templateId root="2.16.840.1.414613.10..22.4.2& quot; /> <id nullFlavor="NA" /> <code codeSystem="local" code="300.0100" displayName="NA- Sodium" /> <statusCode code="completed" /> <effectiveTime value="304344257582" /> <value unit="MEQ/L" xsi:type="PQ" value="140" /> <referenceRange> <observationRange> &lt ;text>134-144</text> </observationRange> < /referenceRange> </observation> </component> &lt ;component> <observation moodCode="EVN" classCode=" OBS"> <templateId root="2.16.840.1.030807.10.20.22.4.2& quot; /> <id nullFlavor="NA" /> <code codeSystem= "local" code="300.0150" displayName="Potassium" /& gt; <statusCode code="completed" /> < effectiveTime value="691268864643" /> <value unit=&quot ;MEQ/L" xsi:type="PQ" value="4.6" /> < referenceRange> <observationRange> <text> 3.6-5</text> </observationRange> </ referenceRange> </observation> </component> < component> <observation moodCode="EVN" classCode=" OBS"> <templateId root="2.16.840.1.735916.10.20.22.4.2& quot; /> <id nullFlavor="NA" /> <code codeSystem="local" code="300.0200" displayName=" Chloride" /> <statusCode code="completed" /> <effectiveTime value="211596637323" /> < value unit="MEQ/L" xsi:type="PQ" value="101" /&gt ; <referenceRange> <observationRange> & lt;text>98-107</text> </observationRange> &lt ;/referenceRange> </observation> </component> & lt;component> <observation moodCode="EVN"classCode=" OBS"> <templateId root="[id number]& quot; /> <id nullFlavor="NA" /> <code codeSystem="local" code="300.0250" displayName="CO2 - Carbon Dioxide" /> <statusCode code="completed" /& gt; <effectiveTime value="[id number]" /> < value unit="MEQ/L" xsi:type="PQ" value="32" /> <interpretationCode codeSystem="local" code="*&quot ; /> <referenceRange> <observationRange> <text>22-30</text> </observationRange> </referenceRange> </observation> </component& gt; <component> <observation moodCode="EVN" classCode="OBS"> <templateId root=" [id number]" /> <id nullFlavor="NA& quot; /> <code codeSystem="local" code="300.0300& quot; displayName="Anion Gap" /> <statusCode code=&quot ;completed" /> <effectiveTime value="544500279932" / > <value unit="MEQ/L" xsi:type="PQ" value=& quot;7" /> <referenceRange> < observationRange> <text>5-15</text> </ observationRange> </referenceRange> </observation&gt ; </component> <component> <observation moodCode ="EVN" classCode="OBS"> <templateId root=& quot;2.16.840.1.520293.10.20.22.4.2" /> <id nullFlavor=&quot ;NA" /> <code codeSystem="local" code=" 300.0350" displayName="BUN - Blood Urea Nitrogen" /> <statusCode code="completed" /> <effectiveTime value=" 869904656965" /> <value unit="MG/DL" xsi:type=& quot;PQ" value="44.0" /> <interpretationCode codeSystem="local" code="*" /> < referenceRange> <observationRange> <text> 7-17</text> </observationRange> </ referenceRange> </observation> </component> < component> <observation moodCode="EVN" classCode=" OBS"> <templateId root="2.16.840.1.176674.10..22.4.2& quot; /> <id nullFlavor="NA" /><code codeSystem=& quot;local" code="300.0410" displayName="Glomerular Filtration Rate" /> <statusCode code="completed" / > <effectiveTime value="215142300494" /> & lt;value unit="" xsi:type="PQ"value="49" /> <referenceRange> <observationRange> <text >NRG</text> </observationRange> </ referenceRange> </observation> </component> < component> <observation moodCode="EVN" classCode=" OBS"> <templateId root="2.16.840.1.662789.10..22.4.2& quot; /> <id nullFlavor="NA" /> <code codeSystem="local" code="300.0500" displayName="Glucose " /><statusCode code="completed" /> < effectiveTime value="096098874638" /> <value unit=&quot ;MG/DL" xsi:type="PQ" value="94" /> < referenceRange> <observationRange> <text> 65-110</text> </observationRange> </ referenceRange> </observation> </component> < component> <observation moodCode="EVN" classCode=" OBS"> <templateId root="2.16.840.1.913419.10..22.4.2& quot; /> <id nullFlavor="NA" /> <code codeSystem="local" code="300.2000" displayName=" Osmolality,Calculated" /> <statusCode code="completed& quot; /> <effectiveTime value="228799480373" /> <value unit="MOSM/KG" xsi:type="PQ" value="280 " /> <referenceRange> <observationRange> <text>261-280</text> </observationRange& gt; </referenceRange> </observation> </ component> <component> <observation moodCode="EVN& quot; classCode="OBS"> <templateId root=" 2.16.840.1.021052.10.20.22.4.2" /> <id nullFlavor="NA& quot; /> <code codeSystem="local" code="300.2200& quot; displayName="Calcium" /> <statusCode code=" completed" /> <effectiveTime value="434446760347" /> <value unit="MG/DL" xsi:type="PQ" value=& quot;9.7" /> <referenceRange> < observationRange> <text>8.4-10.2</text> </ observationRange> </referenceRange> </observation&gt ; </component> <component> <observation moodCode ="EVN" classCode="OBS"> <templateId root=& quot;2.16.840.1.606331.10.20.22.4.2" /> <id nullFlavor="NA&quot ; /> <code codeSystem="local" code="300.2300&quot ; displayName="Phosphorus" /> <statusCode code=" completed" /> <effectiveTime value="338179241147" /> <value unit="MG/DL" xsi:type="PQ" value=& quot;4.5" /> <referenceRange> <observationRange > <text>2.5-4.5</text> </ observationRange> </referenceRange> </observation&gt ; </component> <component> <observation moodCode=& quot;EVN" classCode="OBS"> <templateId root=" 2.16.840.1.215311.10.20.22.4.2" /> <id nullFlavor="NA& quot; /> <code codeSystem="local" code="300.3120& quot; displayName="Albumin Level" /> <statusCode code=& quot;completed" /> <effectiveTime value="934224917564" /> <value unit="G/DL"xsi:type="PQ" value=& quot;3.6" /> <referenceRange> < observationRange> <text>3.5-5.0</text> & lt;/observationRange> </referenceRange> </ observation> </component> <component> < observation moodCode="EVN" classCode="OBS"> < templateId root="2.16.840.1.888120.10.20.22.4.2" /> < id nullFlavor="NA" /> <code codeSystem="local&quot ; code="300.0095" displayName="LICTERUS" /> < statusCode code="completed" /> <effectiveTime value=& quot;684634646750" /> <value unit="" xsi:type=& quot;PQ" value="< 2" /> <referenceRange&gt ; <observationRange> <text>0-7</text> </observationRange> </referenceRange> & lt;/observation> </component> <component> < observation moodCode="EVN" classCode="OBS"> < templateId root="2.16.840.1.828658.10.20.22.4.2" /> < id nullFlavor="NA" /> <code codeSystem="local&quot ; code="300.0096" displayName="LHEMOLYSIS" /> & lt;statusCode code="completed" /> <effectiveTime value= "563628659907" /> <value unit="" xsi:type=& quot;PQ" value="< 15" /> <referenceRange&gt ; <observationRange> <text>0-25</text&gt ; </observationRange> </referenceRange> < /observation> </component> <component> < observation moodCode="EVN" classCode="OBS"> < templateId root="2.16.840.1.010644.10.20.22.4.2" /> < id nullFlavor="NA" /> <code codeSystem="local&quot ; code="300.0097" displayName="LTURBIDITY" /> & lt;statusCode code="completed" /> <effectiveTime value= "385379329878" /> <value unit="" xsi:type=& quot;PQ" value="< 20" /> <referenceRange&gt ; <observationRange> <text>0-20</text&gt ; </observationRange> </referenceRange> & lt;/observation> </component> </organizer> </entry&gt ; <entry> <organizer moodCode="EVN" classCode=" BATTERY"> <templateId root="2.16.840.1.662621.10.20.22.4.1& quot; /> <id nullFlavor="NA" /> <code codeSystem ="local" code="LMAG" displayName="L200.2000" /&gt ; <statusCode code="completed" /> <component> <observation moodCode="EVN" classCode="OBS"> <templateId root="2.16.840.1.403964.10.20.22.4.2" /> <id nullFlavor="NA" /> <code codeSystem=" local" code="300.2350" displayName="MAG - Magnesium" /& gt; <statusCode code="completed" /> < effectiveTime value="948799436901" /> <value unit="MG/ DL" xsi:type="PQ" value="2.2" /> < referenceRange> <observationRange> <text> 1.6-2.3</text> </observationRange> </ referenceRange> </observation> </component> </ organizer> </entry> <entry> <organizer moodCode="EVN " classCode="BATTERY"> <templateId root=" 2.16.840.1.913142.10.20.22.4.1" /> <id nullFlavor="NA&quot ; /> <code codeSystem="local" code="LBGM" displayName="L900.0530" /> <statusCode code="completed " /> <component> <observation moodCode="EVN& quot; classCode="OBS"> <templateId root=" 2.16.840.1.337027.10..22.4.2" /> <id nullFlavor="NA& quot; /> <code codeSystem="local" code="850.0100& quot; displayName="Glucometer" /> <statusCode code=& quot;completed" /> <effectiveTime value="849796407107& quot; /> <value unit="mg/dL" xsi:type="PQ" value="105" /> <referenceRange> < observationRange> <text>65-110</text> &lt ;/observationRange> </referenceRange> </observation& gt; </component> </organizer> </entry> <entry&gt ; <organizer moodCode="EVN" classCode="BATTERY"> <templateId root="2.16.840.1.357732.10.20.22.4.1" /> & lt;id nullFlavor="NA" /> <code codeSystem="local&quot ; code="LBGM" displayName="L900.0530" /> < statusCode code="completed" /> <component> < observation moodCode="EVN" classCode="OBS"> < templateId root="2.16.840.1.056083.10..22.4.2" /> < id nullFlavor="NA" /> <code codeSystem="local&quot ; code="850.0100" displayName="Glucometer" /> & lt;statusCode code="completed" /> <effectiveTime value= "420985623774" /> <value unit="mg/dL" xsi: type="PQ" value="287" /> <referenceRange> <observationRange> <text>65-110</text> </observationRange> </referenceRange> </ observation> </component> </organizer> </entry> & lt;entry> <organizer moodCode="EVN" classCode="BATTERY& quot;> <templateId root="2.16.840.1.832698.10.20.22.4.1" /& gt; <id nullFlavor="NA" /> <code codeSystem=" local" code="LESR-MK" displayName="L100.6375" /> <statusCode code="completed" /> <component> < observation moodCode="EVN" classCode="OBS"> < templateId root="2.16.840.1.472961.10.20.22.4.2" /> < id nullFlavor="NA" /> <code codeSystem="local&quot ; code="100.6375" displayName="ESR - MK" /> < statusCode code="completed" /> <effectiveTime value=& quot;238842834911" /> <value unit="MM/HR" xsi:type ="PQ" value="80" /> <interpretationCode codeSystem="local" code="*" /> < referenceRange> <observationRange> <text>0-20& lt;/text> </observationRange> </referenceRange& gt; </observation> </component> </organizer> & lt;/entry> <entry> <organizer moodCode="EVN" classCode ="BATTERY"> <templateId root=" 2.16.840.1.302466.10.20.22.4.1" /> <id nullFlavor="NA&quot ; /> <code codeSystem="local" code="AVGXD4R-HQ" displayName="L300.7373" /> <statusCode code="completed " /> <component> <observation moodCode="EVN& quot; classCode="OBS"> <templateId root=" 2.16.840.1.976091.10.20.22.4.2" /> <id nullFlavor="NA& quot; /><code codeSystem="local" code="300.7373" displayName="TZNSR3H-TY" /> <statusCode code=" completed" /> <effectiveTime value="318270538975" /> <value unit="%" xsi:type="PQ" value="6.7" /> <referenceRange> < observationRange> <text>6.1-7.9</text> </ observationRange> </referenceRange> </observation&gt ; </component> </organizer> </entry> <entry> <organizer moodCode="EVN" classCode="BATTERY"> <templateId root="2.16.840.1.978105.10.20.22.4.1" /> < id nullFlavor="NA" /> <code codeSystem="local" code ="LBMP-A" displayName="L749.2000" /> <statusCode code="completed" /> <component> <observation moodCode="EVN" classCode="OBS"> <templateId root="2.16.840.1.884958.10.20.22.4.2" /> <id nullFlavor ="NA" /> <codecodeSystem="local" code=" 908.3031" displayName="NA - Sodium - AMS" /> < statusCode code="completed" /> <effectiveTime value=& quot;635578817491" /> <value unit="mEq/L" xsi:type ="PQ" value="138" /> <referenceRange> <observationRange> <text>135-144</text> </observationRange> </referenceRange> </ observation> </component> <component> < observation moodCode="EVN" classCode="OBS"> < templateId root="2.16.840.1.613629.10.20.22.4.2" /> < id nullFlavor="NA" /> <code codeSystem="local&quot ; code="908.3033" displayName="Potassium - AMS" />< statusCode code="completed" /> <effectiveTime value=& quot;283016236767" /> <value unit="mEq/L" xsi:type ="PQ" value="3.6" /> <referenceRange> <observationRange> <text>3.5-5.2</text> </observationRange> </referenceRange> &lt ;/observation> </component> <component> < observation moodCode="EVN" classCode="OBS"> < templateId root="2.16.840.1.173538.10.20.22.4.2" /> < id nullFlavor="NA" /> <code codeSystem="local&quot ; code="908.3035" displayName="Chloride- AMS" /> <statusCode code="completed" /> <effectiveTime value="866130287253" /> <value unit="mEq/L" xsi: type="PQ" value="101" /><referenceRange> <observationRange> <text>99-111</text> </observationRange> </referenceRange> </ observation> </component> <component> < observation moodCode="EVN" classCode="OBS"> < templateId root="2.16.840.1.856006.10.20.22.4.2" /> < id nullFlavor="NA" /> <code codeSystem="local&quot ; code="908.3037" displayName="CO2 - Carbon Dioxide-AMS" /& gt; <statusCode code="completed" /> < effectiveTime value="458368670957" /> <value unit="mEq/L " xsi:type="PQ" value="27" /> < referenceRange> <observationRange> <text> 22-31</text> </observationRange> </ referenceRange> </observation></component> < component> <observation moodCode="EVN" classCode=" OBS"> <templateId root="2.16.840.1.713296.10.20.22.4.2& quot; /> <id nullFlavor="NA" /> <code codeSystem="local" code="908.3039" displayName="Anion Gap - AMS" /> <statusCode code="completed" /> <effectiveTime value="873450393418" /> < valueunit="mEq/L" xsi:type="PQ" value="10" /> <referenceRange> <observationRange> <text>3-20</text> </observationRange> & lt;/referenceRange> </observation> </component> <component> <observation moodCode="EVN" classCode=& quot;OBS"> <templateId root=" 2.16.840.1.803670.10.20.22.4.2" /> <id nullFlavor="NA& quot; /> <code codeSystem="local" code="908.3041& quot; displayName="BUN - Blood Urea Nitrogen -AMS" /> < statusCode code="completed" /> <effectiveTime value=& quot;110765361347" /> <valueunit="mg/dL" xsi:type= "PQ" value="41" /> <interpretationCode codeSystem="local" code="*" /> < referenceRange> <observationRange> <text>10-20</ text> </observationRange> </referenceRange> </observation> </component> <component> <observation moodCode="EVN" classCode="OBS"> <templateId root="2.16.840.1.883008.10..22.4.2" /> <id nullFlavor="NA" /> <code codeSystem=" local" code="908.3043" displayName="Creatinine - AMS" / > <statusCode code="completed" /> < effectiveTime value="994658596415" /> <value unit=&quot ;mg/dL" xsi:type="PQ" value="0.88" /> < referenceRange> <observationRange> <text> 0.57-1.11</text> </observationRange> </ referenceRange> </observation> </component> < component> <observation moodCode="EVN" classCode=" OBS"> <templateId root="2.16.840.1.885186.10.20.22.4.2& quot; /> <id nullFlavor="NA" /> <code codeSystem="local" code="908.3045" displayName=" Glomerular Filtration Rate-AMS" /> <statusCode code=" completed" /> <effectiveTime value="964240135683" /&gt ; <value unit="mL/min" xsi:type="PQ" value=&quot ;> 60" /> <referenceRange> < observationRange> <text>>60</text> </observationRange> </referenceRange> </ observation> </component> <component> < observation moodCode="EVN" classCode="OBS"> < templateId root="2.16.840.1.194878.10.20.22.4.2" /> < id nullFlavor="NA" /> <code codeSystem="local&quot ; code="908.3047" displayName="Glucose - AMS" /> <statusCode code="completed" /> <effectiveTime value=& quot;726794645737" /> <value unit="mg/dL" xsi:type ="PQ" value="163" /> <interpretationCode codeSystem="local" code="*" /> < referenceRange> <observationRange> <text> 70-99</text> </observationRange> </ referenceRange> </observation> </component> < component> <observation moodCode="EVN" classCode=" OBS"> <templateId root="2.16.840.1.997541.10.20.22.4.2& quot; /> <id nullFlavor="NA" /> <code codeSystem="local" code="908.3054" displayName=" Calcium - AMS" /> <statusCode code="completed" /& gt; <effectiveTime value="252350725230" /> &lt ;value unit="mg/dL" xsi:type="PQ" value="9.5" /&gt ; <referenceRange> <observationRange> <text >8.4-10.2</text> </observationRange> </ referenceRange> </observation> </component> </ organizer> </entry> <entry> <organizer moodCode="EVN " classCode="BATTERY"> <templateId root=" 2.16.840.1.121540.10.20.22.4.1" /> <id nullFlavor="NA&quot ; /> <code codeSystem="local" code="LMAG-A" displayName="L908.3066" /> <statusCode code="completed " /> <component> <observation moodCode="EVN& quot; classCode="OBS"> <templateId root=" 2.16.840.1.356131.10.20.22.4.2" /> <id nullFlavor="NA& quot; /> <code codeSystem="local" code="908.3066& quot; displayName="MAG - Magnesium - AMS" /> < statusCode code="completed" /> <effectiveTime value=& quot;509802627373" /> <value unit="mg/dL" xsi:type ="PQ" value="1.8" /> <referenceRange> <observationRange> <text>1.6-2.6</text> & lt;/observationRange> </referenceRange> </ observation> </component> </organizer> </entry> & lt;entry> <organizer moodCode="EVN" classCode="BATTERY& quot;> <templateId root="2.16.840.1.921210.10.20.22.4.1" /& gt; <id nullFlavor="NA" /> <code codeSystem=" local" code="LLIPID-A" displayName="L908.3120" /> <statusCode code="completed" /> <component> <observation moodCode="EVN" classCode="OBS"> <templateId root="2.16.840.1.526411.10.20.22.4.2" /> <id nullFlavor="NA" /> <code codeSystem=" local" code="908.3122" displayName="Triglycerides - AMS&quot ; /> <statusCode code="completed" /> < effectiveTime value="451838874423" /> <value unit=&quot ;mg/dL" xsi:type="PQ" value="270" /> < interpretationCode codeSystem="local" code="*" /> <referenceRange> <observationRange> < text>0-149</text> </observationRange> </ referenceRange> </observation> </component> < component> <observation moodCode="EVN" classCode=" OBS"> <templateId root="2.16.840.1.363906.10.20.22.4.2& quot; /> <id nullFlavor="NA" /> <code codeSystem="local" code="908.3124" displayName=" Cholesterol - AMS" /> <statusCode code="completed&quot ; /> <effectiveTime value="149441557878" /> <value unit="mg/dL" xsi:type="PQ" value="250&quot ; /> <interpretationCode codeSystem="local" code="*&quot ; /> <referenceRange> <observationRange> <text>0-199</text> </observationRange> < /referenceRange> </observation> </component> &lt ;component> <observation moodCode="EVN" classCode=" OBS"> <templateId root="2.16.840.1.804576.10.20.22.4.2& quot; /> <id nullFlavor="NA" /> <code codeSystem="local" code="908.3130" displayName="HDL Cholesterol, Direct - AMS" /> <statusCode code=" completed" /> <effectiveTime value="922178475246" /> <value unit="mg/dL" xsi:type="PQ" value=& quot;45" /> <referenceRange> < observationRange> <text>40-84</text> </ observationRange> </referenceRange> </observation&gt ; </component> <component> <observation moodCode ="EVN" classCode="OBS"> <templateId root=& quot;2.16.840.1.015472.10.20.22.4.2" /> <id nullFlavor=&quot ;NA" /> <code codeSystem="local" code=" 908.3132" displayName="Cardiac Risk - Ratio - AMS" /> <statusCode code="completed" /> <effectiveTime value="120127750743" /> <value unit="" xsi: type="PQ" value="5.6" /> <interpretationCode codeSystem="local" code="*" /> < referenceRange><observationRange> <text>0.0-5.0</ text> </observationRange> </referenceRange> </observation> </component> <component> <observation moodCode="EVN" classCode="OBS">< templateId root="2.16.840.1.518805.10.20.22.4.2" /> < id nullFlavor="NA" /> <code codeSystem="local&quot ; code="908.3134" displayName="Non-HDL Cholesterol" /> <statusCode code="completed" /> <effectiveTime value="005318325199" /> <value unit="mg/dL" xsi:type="PQ" value="205" /> < interpretationCode codeSystem="local" code="*" /> <referenceRange> <observationRange> < text>0-159</text> </observationRange> </ referenceRange> </observation> </component> < component> <observation moodCode="EVN" classCode=" OBS"> <templateId root="2.16.840.1.035911.10.20.22.4.2& quot; /> <id nullFlavor="NA" /> <code codeSystem= "local" code="908.3127" displayName="LLDL-A" /&gt ; <statusCode code="completed" /> < effectiveTime value="269655695934" /> <value unit=&quot ;mg/dL" xsi:type="PQ" value="151" /> < interpretationCode codeSystem="local" code="*" /> <referenceRange> <observationRange> <text >0-130</text> </observationRange> </ referenceRange> </observation> </component> < component> <observation moodCode="EVN" classCode=" OBS"> <templateId root="2.16.840.1.944757.10.20.22.4.2& quot; /> <id nullFlavor="NA" /> <code codeSystem="local" code="908.3129" displayName="LVLDL-A " /> <statusCode code="completed" /> & lt;effectiveTime value="482111088096" /> <value unit=& quot;mg/dL" xsi:type="PQ" value="54" /> &lt ;interpretationCode codeSystem="local" code="*" /> <referenceRange> <observationRange> <text&gt ;0-28</text> </observationRange> </ referenceRange> </observation> </component> </ organizer> </entry> <entry> <organizer moodCode="EVN " classCode="BATTERY"> <templateId root=" 2.16.840.1.881126.10.20.22.4.1" /> <id nullFlavor="NA&quot ; /> <code codeSystem="local" code="LESR-MK" displayName="L100.6375" /> <statusCode code="completed " /> <component> <observation moodCode="EVN" classCode="OBS"> <templateId root=" 2.16.840.1.948270.10.20.22.4.2" /> <id nullFlavor="NA& quot; /> <code codeSystem="local" code="100.6375& quot; displayName="ESR - MK" /> <statusCode code=" completed" /> <effectiveTime value="495953374308" /> <value unit="MM/HR" xsi:type="PQ" value=& quot;84" /> <interpretationCode codeSystem="local&quot ; code="*" /> <referenceRange> < observationRange> <text>0-20</text> </ observationRange> </referenceRange> </observation&gt ; </component> </organizer> </entry> <entry> <organizer moodCode="EVN" classCode="BATTERY"> <templateId root="2.16.840.1.229023.10.20.22.4.1" /> < id nullFlavor="NA" /> <code codeSystem="local" code="BNP" displayName="B-TYPE NATRIURETIC PEPTIDE" /> <statusCode code="completed" /> <component> <observation moodCode="EVN" classCode="OBS"> <templateId root="2.16.840.1.375660.10.20.22.4.2" /> <id nullFlavor="NA" /> <code codeSystem=" local" code="BNP" displayName="B-TYPE NATRIURETIC PEPTIDE& quot; /> <statusCode code="completed" /> & lt;effectiveTime value="518299735414" /> <value unit=& quot;pg/mL" xsi:type="PQ" value="22" /> &lt ;referenceRange> <observationRange> <text&gt ;< 100</text> </observationRange> </ referenceRange> </observation> </component> </ organizer> </entry> <entry> <organizer moodCode="EVN " classCode="BATTERY"> <templateId root=" 2.16.840.1.249660.10.20.22.4.1" /> <id nullFlavor="NA&quot ; /> <code codeSystem="local" code="CBC" displayName="CBC" /> <statusCode code="completed&quot ; /> <component><observation moodCode="EVN" classCode ="OBS"> <templateId root=" 2.16.840.1.277254.10.20.22.4.2" /> <id nullFlavor="NA& quot; /> <code codeSystem="local" code="MCH" displayName="MEAN CELL HGB"/> <statusCode code=" completed" /> <effectiveTime value="193578177103" /> <value unit="pg" xsi:type="PQ" value=&quot ;28.2" /> <referenceRange> < observationRange> <text>27.0-33.0</text> </observationRange> </referenceRange> </ observation> </component> <component> < observation moodCode="EVN" classCode="OBS"> < templateId root="2.16.840.1.423315.10.20.22.4.2" /> < id nullFlavor="NA" /> <code codeSystem="local&quot ; code="MCHC" displayName="MEAN CELL HGB CONCENTRATION" /&gt ; <statusCode code="completed" /> < effectiveTime value="788169999876" /> <value unit=&quot ;g/dL" xsi:type="PQ" value="31.4" /> < interpretationCode codeSystem="local" code="*" /> <referenceRange> <observationRange> < text>32.0-37.0</text> </observationRange> &lt ;/referenceRange> </observation> </component> & lt;component> <observation moodCode="EVN" classCode=&quot ;OBS"> <templateId root="2.16.840.1.896792.10.20.22.4.2 " /> <id nullFlavor="NA" /> <code codeSystem="local" code="MCV" displayName="MEAN CELL VOLUME" /> <statusCode code="completed" /> <effectiveTime value="647414638618" /> <value unit=& quot;fl" xsi:type="PQ" value="89.7" /> < referenceRange> <observationRange> <text> 80.0-100.0</text> </observationRange> </ referenceRange> </observation> </component> < component> <observation moodCode="EVN" classCode=" OBS"> <templateId root="2.16.840.1.351353.10.20.22.4.2& quot; /> <id nullFlavor="NA" /> <code codeSystem="local" code="RBC" displayName="RED BLOOD CELL" /> <statusCode code="completed" /> <effectiveTime value="103137719855" /> <value unit="m/cumm" xsi:type="PQ" value="3.80" /> <interpretationCode codeSystem="local" code="*" /& gt; <referenceRange> <observationRange> < text>4.00-6.00</text> </observationRange> &lt ;/referenceRange> </observation> </component>< component> <observation moodCode="EVN" classCode=" OBS"> <templateId root="2.16.840.1.770658.10.20.22.4.2" /> <id nullFlavor="NA" /> <code codeSystem="local" code="RDW" displayName="RED CELL DISTRIBUTION WIDTH" /> <statusCode code="completed&quot ; /> <effectiveTime value="243982816967" /> <value unit="%" xsi:type="PQ" value="16.1& quot; /> <interpretationCode codeSystem="local" code=& quot;*" /> <referenceRange> < observationRange> <text>11.0-15.6</text> </observationRange> </referenceRange> </observation > </component> <component> <observation moodCode="EVN" classCode="OBS"> <templateId root="2.16.840.1.170761.10.20.22.4.2" /> <id nullFlavor ="NA" /> <code codeSystem="local" code=" WBC" displayName="WHITE BLOOD CELL" /> < statusCode code="completed" /> <effectiveTime value=& quot;732823585366" /> <value unit="k/cumm" xsi: type="PQ" value="15.3" /> < interpretationCode codeSystem="local" code="*" /> <referenceRange> <observationRange> <text>5.0- 10.0</text> </observationRange> </ referenceRange> </observation> </component> < component> <observation moodCode="EVN" classCode=" OBS"> <templateId root="2.16.840.1.942505.10.20.22.4.2& quot; /> <id nullFlavor="NA" /> <code codeSystem="local" code="HGBT" displayName="HEMOGLOBIN& quot; /> <statusCode code="completed" /> & lt;effectiveTime value="[id number]" /> <value unit=& quot;gm/dL" xsi:type="PQ" value="10.7" /> & lt;interpretationCode codeSystem="local" code="*" /> <referenceRange> <observationRange> & lt;text>12.0-16.0</text> </observationRange> </referenceRange> </observation> </component> <component> <observation moodCode="EVN" classCode=& quot;OBS"> <templateId root=" [id number]" /> <id nullFlavor="NA& quot; /> <code codeSystem="local" code="HCTT&quot ; displayName="HEMATOCRIT" /> <statusCode code=" completed" /> <effectiveTime value="[id number]" /> <value unit="%" xsi:type="PQ" value="34.1" /> <interpretationCode codeSystem=" local" code="*" /> <referenceRange> < observationRange> <text>37.0-47.0</text> </observationRange> </referenceRange> </ observation> </component> <component> < observation moodCode="EVN" classCode="OBS"> < templateId root="2.16.840.1.803660.10.20.22.4.2" /> < id nullFlavor="NA" /> <code codeSystem="local&quot ; code="PLTT" displayName="PLATELET COUNT" /> & lt;statusCode code="completed" /><effectiveTime value=" [id number]" /> <value unit="k/cumm" xsi:type=& quot;PQ" value="340" /> <referenceRange> <observationRange> <text>150-450</text> </observationRange> </referenceRange> </ observation> </component> </organizer> </entry> & lt;entry> <organizer moodCode="EVN" classCode="BATTERY& quot;> <templateId root="2.16.840.1.713148.10.20.22.4.1" /& gt; <id nullFlavor="NA" /> <code codeSystem=" local" code="PT" displayName="PROTHROMBIN TIME WITH INR&quot ; /> <statusCode code="completed" /> <component> <observation moodCode="EVN" classCode="OBS"> <templateId root="2.16.840.1.016293.10..22.4.2" /> <id nullFlavor="NA" /> <code codeSystem=" local" code="INRX" displayName="INTERNATIONAL NORMAL RATIO& quot; /> <statusCode code="completed" /> & lt;effectiveTime value="951935323585" /> <value unit=& quot;" xsi:type="PQ" value="1.1" /> < referenceRange> <observationRange> <text> 0.9-1.1</text> </observationRange> </ referenceRange> </observation> </component> < component> <observation moodCode="EVN" classCode=" OBS"> <templateId root="2.16.840.1.278966.10..22.4.2& quot; /> <id nullFlavor="NA" /> <code codeSystem="local" code="PTPAT" displayName=" PROTHROMBIN TIME" /> <statusCode code="completed" /> <effectiveTime value="018594815084" /> & lt;value unit="sec" xsi:type="PQ" value="12.9" /& gt; <interpretationCode codeSystem="local" code="*& quot; /> <referenceRange> <observationRange> <text>10.0-12.8</text> </observationRange> </referenceRange> </observation> </component& gt; </organizer> </entry><entry> <organizer moodCode ="EVN" classCode="BATTERY"> <templateId root=& quot;2.16.840.1.397431.10.20.22.4.1" /> <id nullFlavor="NA& quot;/> <code codeSystem="local" code="PTT" displayName="PARTIAL THROMBOPLASTIN TIME" /> <statusCode code="completed" /> <component> <observation moodCode="EVN" classCode="OBS"> <templateId root="2.16.840.1.992254.10.20.22.4.2" /> <id nullFlavor ="NA" /> <code codeSystem="local" code=" PTT" displayName="PARTIAL THROMBOPLASTIN TIME" /> &lt ;statusCode code="completed" /> <effectiveTime value=& quot;052323417813" /> <value unit="sec" xsi:type=& quot;PQ" value="28" /> <referenceRange> <observationRange> <text>25-37</text> </observationRange> </referenceRange> </ observation> </component> </organizer> </entry> & lt;entry> <organizer moodCode="EVN" classCode="BATTERY& quot;> <templateId root="2.16.840.1.657321.10.20.22.4.1" /&gt ; <id nullFlavor="NA" /> <code codeSystem=" local" code="METABC" displayName="METABOLIC PANEL, COMPREHN& quot; /> <statusCode code="completed" /> < component> <observation moodCode="EVN" classCode=" OBS"> <templateId root="2.16.840.1.004897.10.20.22.4.2& quot; /> <id nullFlavor="NA" /> <code codeSystem="local" code="K" displayName="POTASSIUM&quot ; /> <statusCode code="completed" /> < effectiveTime value="369112009062" /> <value unit=&quot ;mmol/L" xsi:type="PQ" value="4.6" /> < referenceRange> <observationRange> <text> 3.5-5.3</text> </observationRange> </ referenceRange> </observation> </component> < component> <observation moodCode="EVN" classCode=" OBS"> <templateId root="2.16.840.1.679778.10.20.22.4.2& quot; /> <id nullFlavor="NA" /><code codeSystem=& quot;local" code="eGFR" displayName="EST GFR (MDRD)" /& gt; <statusCode code="completed" /> < effectiveTime value="046769646684" /> <value unit=&quot ;mL/min" xsi:type="PQ" value="40" /> < interpretationCode codeSystem="local" code="*" /> <referenceRange> <observationRange> < text>> 59</text> </observationRange> & lt;/referenceRange> </observation> </component> <component> <observation moodCode="EVN" classCode=& quot;OBS"> <templateId root=" 2.16.840.1.717636.10.20.22.4.2" /> <id nullFlavor="NA& quot; /> <code codeSystem="local" code="GAP" displayName="ANION GAP" /> <statusCode code=" completed" /> <effectiveTime value="983970736123" /><value unit="mmol/L" xsi:type="PQ" value="10& quot; /> <referenceRange> <observationRange> <text>5-15</text> </observationRange> </referenceRange> </observation> </component> <component> <observation moodCode="EVN" classCode="OBS"> <templateId root=" 2.16.840.1.843011.10.20.22.4.2" /> <id nullFlavor="NA" /&gt ; <code codeSystem="local" code="GLU" displayName="GLUCOSE" /> <statusCode code=" completed" /> <effectiveTime value="224214031381" /> <value unit="mg/dL" xsi:type="PQ" value=& quot;175" /> <interpretationCode codeSystem="local&quot ; code="*" /> <referenceRange> < observationRange> <text>70-99</text> < /observationRange> </referenceRange> </observation& gt; </component> <component> <observation moodCode=& quot;EVN" classCode="OBS"> <templateId root=" 2.16.840.1.807928.10.20.22.4.2" /> <id nullFlavor="NA& quot; /> <code codeSystem="local" code="CA" displayName="CALCIUM" /> <statusCode code=" completed" /> <effectiveTime value="835667146813" /> <value unit="mg/dL" xsi:type="PQ" value=& quot;9.2" /> <referenceRange> < observationRange> <text>8.5-10.1</text> & lt;/observationRange> </referenceRange> </observation& gt; </component> <component> <observation moodCode="EVN" classCode="OBS"> <templateId root="2.16.840.1.111847.10.20.22.4.2" /> <id nullFlavor ="NA" /> <code codeSystem="local" code=" BUN" displayName="BLOOD UREA NITROGEN" /> <statusCode code= "completed" /> <effectiveTime value="467919109780& quot; /> <value unit="mg/dL" xsi:type="PQ" value="35" /> <interpretationCode codeSystem=" local" code="*" /> <referenceRange> <observationRange> <text>7-20</text> &lt ;/observationRange> </referenceRange> </observation& gt; </component> <component> <observation moodCode=& quot;EVN" classCode="OBS"> <templateId root=" 2.16.840.1.682352.10.20.22.4.2" /> <id nullFlavor="NA&quot ; /> <code codeSystem="local" code="CREAT" displayName="CREATININE" /> <statusCode code=" completed" /> <effectiveTime value="225929532624" /> <value unit="mg/dL" xsi:type="PQ" value=& quot;1.3" /> <interpretationCode codeSystem="local&quot ; code="*" /> <referenceRange> < observationRange> <text>0.6-1.0</text> & lt;/observationRange> </referenceRange> </ observation> </component> <component> < observation moodCode="EVN" classCode="OBS"> < templateId root="2.16.840.1.222804.10.20.22.4.2" /> < id nullFlavor="NA" /> <code codeSystem="local&quot ; code="NA" displayName="SODIUM" /> < statusCode code="completed" /> <effectiveTime value=& quot;391564176117" /> <value unit="mmol/L" xsi: type="PQ"value="138" /> <referenceRange> <observationRange> <text>135-148</text> </observationRange> </referenceRange> </ observation> </component> <component> < observation moodCode="EVN" classCode="OBS"> < templateId root="2.16.840.1.743928.10..22.4.2" /> < id nullFlavor="NA" /> <code codeSystem="local&quot ; code="CL" displayName="CHLORIDE" /><statusCode code= "completed" /> <effectiveTime value="668825401357& quot; /> <value unit="mmol/L" xsi:type="PQ" value="101" /> <referenceRange> < observationRange> <text>98-110</text> &lt ;/observationRange> </referenceRange> </observation& gt; </component> <component> <observation moodCode="EVN" classCode="OBS"> <templateId root="2.16.840.1.428237.10..22.4.2" /> <id nullFlavor ="NA" /> <code codeSystem="local" code=" AST" displayName="AST/SGOT" /> <statusCode code=& quot;completed" /> <effectiveTime value="403398501486& quot; /> <value unit="Units/L" xsi:type="PQ" value="14" /> <referenceRange> < observationRange> <text>10-37</text> </ observationRange> </referenceRange> </observation&gt ; </component> <component> <observation moodCode ="EVN" classCode="OBS"> <templateId root=& quot;2.16.840.1.336597.10.20.22.4.2" /><id nullFlavor="NA" /> <code codeSystem="local" code="ALT" displayName="ALT/SGPT" /> <statusCode code=" completed" /> <effectiveTime value="473103164560" /> <value unit="Units/L" xsi:type="PQ" value= "29" /> <referenceRange> <observationRange> <text>< 66</text> </ observationRange> </referenceRange> </observation&gt ; </component> <component> <observation moodCode=& quot;EVN" classCode="OBS"> <templateId root=" 2.16.840.1.430191..20.22.4.2" /> <id nullFlavor="NA& quot; /> <code codeSystem="local" code="CO2" displayName="CARBON DIOXIDE" /> <statusCode code=" completed" /> <effectiveTime value="698100875071" /> <value unit="mmol/L" xsi:type="PQ" value=& quot;27" /> <referenceRange> < observationRange> <text>21-32</text> < /observationRange> </referenceRange> </observation> </component> <component> <observation moodCode=" EVN" classCode="OBS"> <templateId root=" 2.16.840.1.738555.10.20.22.4.2" /> <id nullFlavor="NA& quot; /> <code codeSystem="local" code="TP" displayName="TOTAL PROTEIN" /> <statusCode code=" completed" /> <effectiveTime value="528134578270" /> <value unit="gm/dL" xsi:type="PQ" value=& quot;7.5" /> <referenceRange> < observationRange> <text>6.4-8.2</text> </ observationRange> </referenceRange> </observation&gt ; </component> <component> <observation moodCode ="EVN" classCode="OBS"> <templateId root=& quot;2.16.840.1.838364.10..22.4.2" /> <id nullFlavor=&quot ;NA" /> <code codeSystem="local" code="ALB& quot; displayName="ALBUMIN" /> <statusCode code=" completed" /> <effectiveTime value="472738062112" /> <value unit="gm/dL" xsi:type="PQ" value=& quot;3.4" /> <referenceRange> < observationRange> <text>3.4-5.0</text> & lt;/observationRange> </referenceRange> </ observation> </component> <component> < observation moodCode="EVN" classCode="OBS"> < templateId root="2.16.840.1.865725.10.20.22.4.2" /> < id nullFlavor="NA" /> <code codeSystem="local&quot ; code="BILTOT" displayName="BILI TOTAL" /> < statusCode code="completed" /> <effectiveTime value=& quot;908960835097" /> <value unit="mg/dL" xsi:type ="PQ" value="0.3" /> <referenceRange> <observationRange> <text>0.0-1.0</text> </observationRange> </referenceRange> </ observation> </component> <component> < observation moodCode="EVN" classCode="OBS"> < templateId root="2.16.840.1.327329.10.20.22.4.2" /> <id nullFlavor="NA" /> <code codeSystem="local" code="ALKP" displayName="ALKALINE PHOSPHATASE TOTAL" /> <statusCode code="completed" /> < effectiveTime value="710027520849" /> <value unit=&quot ;IU/L" xsi:type="PQ" value="46" /> < referenceRange> <observationRange> <text> 45-117</text></observationRange> </referenceRange> </observation> </component> </organizer> </ entry> <entry> <organizer moodCode="EVN" classCode=& quot;BATTERY"> <templateId root=" 2.16.840.1.344408.10.20.22.4.1" /> <id nullFlavor="NA&quot ; /> <code codeSystem="local" code="MAG" displayName="MAGNESIUM" /> <statusCode code="completed " /> <component> <observation moodCode="EVN& quot; classCode="OBS"> <templateId root=" 2.16.840.1.794541.10.20.22.4.2" /> <id nullFlavor="NA& quot; /> <code codeSystem="local" code="MAG" displayName="MAGNESIUM" /> <statusCode code=" completed" /> <effectiveTime value="903198176788" /& gt; <value unit="mg/dL" xsi:type="PQ" value=& quot;2.0" /> <referenceRange> < observationRange> <text>1.8-2.4</text> & lt;/observationRange> </referenceRange> </ observation> </component> </organizer> </entry> & lt;entry> <organizer moodCode="EVN" classCode="BATTERY& quot;> <templateId root="2.16.840.1.268362.10.20.22.4.1" /& gt; <id nullFlavor="NA" /> <code codeSystem=" local" code="TSH" displayName="THYROID STIM HORMONE (TSH)& quot; /> <statusCode code="completed" /> < component> <observation moodCode="EVN" classCode=" OBS"> <templateId root="2.16.840.1.774617.10.20.22.4.2& quot; /> <id nullFlavor="NA" /> <code codeSystem="local" code="TSH" displayName="THYROID STIM HORMONE (TSH)" /> <statusCode code="completed&quot ; /> <effectiveTime value="053138400839" /> <value unit="uIU/mL" xsi:type="PQ" value="0.42& quot; /> <referenceRange> <observationRange> <text>0.34-4.82</text> </observationRange > </referenceRange> </observation> </ component> </organizer> </entry> <entry> < organizer moodCode="EVN" classCode="BATTERY"> < templateId root="2.16.840.1.321714.10.20.22.4.1" /> <id nullFlavor="NA" /> <code codeSystem="local" code= "BNP" displayName="B-TYPE NATRIURETIC PEPTIDE" /> & lt;statusCode code="completed" /> <component> &lt ;observation moodCode="EVN" classCode="OBS"> &lt ;templateId root="2.16.840.1.802301.10.20.22.4.2" /> <id nullFlavor="NA" /> <code codeSystem="local" code="BNP" displayName="B-TYPE NATRIURETIC PEPTIDE" /> <statusCode code="completed" /> < effectiveTime value="583445614547" /> <value unit=&quot ;pg/mL" xsi:type="PQ" value="22" /> < referenceRange> <observationRange> <text> < 100</text> </observationRange> </ referenceRange> </observation> </component> </ organizer> </entry> <entry> <organizer moodCode="EVN " classCode="BATTERY"> <templateId root=" 2.16.840.1.552862.10.20.22.4.1" /> <id nullFlavor="NA&quot ; /> <code codeSystem="local" code="CBC" displayName="CBC" /> <statusCode code="completed&quot ; /> <component> <observation moodCode="EVN" classCode="OBS"> <templateId root=" 2.16.840.1.659903.10.20.22.4.2" /><id nullFlavor="NA" /&gt ; <code codeSystem="local" code="MCH" displayName="MEAN CELL HGB" /> <statusCode code=" completed"/> <effectiveTime value="690187107277" / > <value unit="pg" xsi:type="PQ" value=" 28.2" /> <referenceRange> <observationRange> <text>27.0-33.0</text> </observationRange&gt ; </referenceRange> </observation> </ component> <component> <observation moodCode="EVN" classCode="OBS"> <templateId root=" 2.16.840.1.359977.10..22.4.2" /> <id nullFlavor="NA& quot; /> <code codeSystem="local" code="MCHC&quot ; displayName="MEAN CELL HGB CONCENTRATION" /> < statusCode code="completed" /> <effectiveTime value=& quot;327585571643" /> <value unit="g/dL" xsi:type= "PQ" value="31.4" /> <interpretationCode codeSystem="local" code="*" /> < referenceRange> <observationRange> <text> 32.0-37.0</text> </observationRange> </ referenceRange> </observation> </component> < component> <observation moodCode="EVN" classCode=" OBS"> <templateId root="2.16.840.1.856009.10.20.22.4.2& quot; /> <id nullFlavor="NA" /> <code codeSystem="local" code="MCV" displayName="MEAN CELLVOLUME" /> <statusCode code="completed" /> <effectiveTime value="554214913723" /> < value unit="fl" xsi:type="PQ" value="89.7" /> <referenceRange> <observationRange> &lt ;text>80.0-100.0</text> </observationRange> & lt;/referenceRange> </observation> </component> <component> <observation moodCode="EVN" classCode=& quot;OBS"> <templateId root=" 2.16.840.1.216158.10.20.22.4.2" /> <id nullFlavor="NA& quot; /><code codeSystem="local" code="RBC" displayName="RED BLOOD CELL" /> <statusCode code=" completed" /> <effectiveTime value="056601860630" /> <value unit="m/cumm" xsi:type="PQ" value=& quot;3.80" /> <interpretationCode codeSystem="local& quot; code="*" /> <referenceRange> < observationRange> <text>4.00-6.00</text> </observationRange> </referenceRange> </ observation> </component> <component> < observation moodCode="EVN" classCode="OBS"> < templateId root="2.16.840.1.775595.10.20.22.4.2" /> < id nullFlavor="NA" /> <code codeSystem="local&quot ; code="RDW" displayName="RED CELL DISTRIBUTION WIDTH" /&gt ; <statusCode code="completed" /> < effectiveTime value="100093318024" /> <value unit=&quot ;%" xsi:type="PQ" value="16.1"/> & lt;interpretationCode codeSystem="local" code="*" />< referenceRange> <observationRange> <text> 11.0-15.6</text> </observationRange> </ referenceRange> </observation> </component> < component> <observation moodCode="EVN" classCode=" OBS"> <templateId root="2.16.840.1.778659.10.20.22.4.2& quot; /> <id nullFlavor="NA" /> <code codeSystem="local" code="WBC" displayName="WHITE BLOOD CELL" /> <statusCode code="completed" /> <effectiveTime value="090634394344" /> <value unit="k/cumm" xsi:type="PQ" value="15.3" /> <interpretationCode codeSystem="local" code="*" /& gt; <referenceRange> <observationRange> <text>5.0-10.0</text> </observationRange> </referenceRange> </observation> </component> <component> <observation moodCode="EVN" classCode= "OBS"> <templateId root=" 2.16.840.1.868440.10.20.22.4.2" /> <id nullFlavor="NA& quot; /> <code codeSystem="local" code="HGBT&quot ; displayName="HEMOGLOBIN" /> <statusCode code=" completed" /> <effectiveTime value="080062461268" /> <value unit="gm/dL" xsi:type="PQ" value=& quot;10.7" /> <interpretationCode codeSystem="local& quot; code="*" /> <referenceRange> < observationRange> <text>12.0-16.0</text> & lt;/observationRange> </referenceRange> </ observation> </component> <component> < observation moodCode="EVN" classCode="OBS"> < templateId root="2.16.840.1.297434.10.20.22.4.2" /> < id nullFlavor="NA" /> <code codeSystem="local" code=& quot;HCTT" displayName="HEMATOCRIT" /> < statusCode code="completed" /> <effectiveTime value=& quot;037425912903" /> <value unit="%" xsi: type="PQ" value="34.1" /> < interpretationCode codeSystem="local" code="*" /> <referenceRange> <observationRange> < text>37.0-47.0</text> </observationRange> &lt ;/referenceRange> </observation> </component> & lt;component> <observation moodCode="EVN" classCode=&quot ;OBS"> <templateId root="2.16.840.1.686021.10.20.22.4.2 " /> <id nullFlavor="NA" /> <code codeSystem="local" code="PLTT" displayName="PLATELET COUNT" /> <statusCode code="completed" /> <effectiveTime value="374399035930" /> <value unit ="k/cumm" xsi:type="PQ" value="340" /> < referenceRange> <observationRange> <text> 150-450</text> </observationRange> </ referenceRange> </observation> </component> </ organizer> </entry> <entry> <organizer moodCode="EVN " classCode="BATTERY"> <templateId root=" 2.16.840.1.513290.10.20.22.4.1" /> <id nullFlavor="NA&quot ; /> <code codeSystem="local" code="PT" displayName="PROTHROMBIN TIME WITH INR" /> <statusCode code ="completed" /> <component> <observation moodCode="EVN" classCode="OBS"> <templateId root="2.16.840.1.223823.10.20.22.4.2" /> <id nullFlavor ="NA" /> <code codeSystem="local" code=" INRX" displayName="INTERNATIONAL NORMAL RATIO" /> &lt ;statusCode code="completed" /> <effectiveTime value=& quot;682058975362" /> <value unit="" xsi:type=& quot;PQ" value="1.1" /> <referenceRange> <observationRange> <text>0.9-1.1</text> </observationRange> </referenceRange> </ observation> </component> <component> < observation moodCode="EVN" classCode="OBS"> < templateId root="2.16.840.1.292316.10.20.22.4.2" /> < id nullFlavor="NA" /> <code codeSystem="local&quot ; code="PTPAT" displayName="PROTHROMBIN TIME" /> <statusCode code="completed" /> <effectiveTime value="802505509146" /> <value unit="sec" xsi:type=& quot;PQ" value="12.9" /> <interpretationCode codeSystem="local" code="*" /> < referenceRange> <observationRange> <text> 10.0-12.8</text> </observationRange> </ referenceRange> </observation> </component> </ organizer> </entry> <entry> <organizer moodCode="EVN " classCode="BATTERY"> <templateId root=" 2.16.840.1.282664.10.20.22.4.1"/> <id nullFlavor="NA" /> <code codeSystem="local" code="PTT" displayName="PARTIAL THROMBOPLASTIN TIME" /> <statusCode code="completed" /> <component> <observation moodCode="EVN" classCode="OBS"> <templateId root="2.16.840.1.128972.10.20.22.4.2" /> <id nullFlavor= "NA" /> <code codeSystem="local" code=" PTT" displayName="PARTIAL THROMBOPLASTIN TIME" /> &lt ;statusCode code="completed" /> <effectiveTime value=& quot;683920736847" /> <value unit="sec" xsi:type="PQ& quot; value="28" /> <referenceRange> < observationRange> <text>25-37</text> </ observationRange> </referenceRange> </observation&gt ; </component> </organizer> </entry> <entry> <organizer moodCode="EVN" classCode="BATTERY"> <templateId root="2.16.840.1.904023.10.20.22.4.1" /> < id nullFlavor="NA" /> <code codeSystem="local" code="METABC" displayName="METABOLIC PANEL, COMPREHN" /> <statusCodecode="completed" /> <component> <observation moodCode="EVN" classCode="OBS"> <templateId root="2.16.840.1.555805.10.20.22.4.2" /> <id nullFlavor="NA" /> <code codeSystem=" local" code="K" displayName="POTASSIUM" /> <statusCode code="completed" /> <effectiveTime value ="090225103166" /> <value unit="mmol/L" xsi: type="PQ" value="4.6" /> <referenceRange> <observationRange> <text>3.5-5.3</text& gt;</observationRange> </referenceRange> </ observation> </component> <component> < observation moodCode="EVN" classCode="OBS"> < templateId root="2.16.840.1.300281.10.20.22.4.2" /> < id nullFlavor="NA" /> <code codeSystem="local&quot ; code="eGFR" displayName="EST GFR (MDRD)" /> & lt;statusCode code="completed" /> <effectiveTime value= "167864099851" /> <value unit="mL/min" xsi: type="PQ" value="40" /> <interpretationCode codeSystem="local" code="*" /> < referenceRange> <observationRange> <text> > 59</text> </observationRange> </ referenceRange> </observation> </component> < component> <observation moodCode="EVN" classCode=" OBS"> <templateId root="2.16.840.1.093753.10..22.4.2& quot; /> <id nullFlavor="NA" /> <code codeSystem="local" code="GAP" displayName="ANION GAP& quot; /> <statusCode code="completed" /> & lt;effectiveTime value="339467494447" /> <value unit=& quot;mmol/L" xsi:type="PQ" value="10" /> & lt;referenceRange> <observationRange> <text>5- 15</text> </observationRange> </ referenceRange> </observation> </component> < component> <observation moodCode="EVN" classCode=" OBS"> <templateId root="2.16.840.1.000327.10..22.4.2& quot; /> <id nullFlavor="NA" /> <code codeSystem="local" code="GLU" displayName="GLUCOSE&quot ; /> <statusCode code="completed" /> < effectiveTime value="195464970766" /> <value unit=&quot ;mg/dL" xsi:type="PQ" value="175" /> < interpretationCode codeSystem="local" code="*" /> <referenceRange> <observationRange> < text>70-99</text> </observationRange> </ referenceRange> </observation> </component> < component> <observation moodCode="EVN" classCode=" OBS"> <templateId root="2.16.840.1.932449.10.20.22.4.2& quot; /> <id nullFlavor="NA" /> <code codeSystem="local" code="CA" displayName="CALCIUM&quot ; /> <statusCode code="completed" /> < effectiveTime value="228240781804" /> <value unit=&quot ;mg/dL" xsi:type="PQ" value="9.2" /> < referenceRange> <observationRange> <text>8.5-10.1& lt;/text> </observationRange> </referenceRange& gt; </observation> </component> <component> <observation moodCode="EVN" classCode="OBS"> <templateId root="2.16.840.1.799675.10.20.22.4.2" /> & lt;id nullFlavor="NA" /> <code codeSystem="local& quot; code="BUN" displayName="BLOOD UREA NITROGEN" /> <statusCode code="completed" /> <effectiveTime value=& quot;124742587738" /> <value unit="mg/dL" xsi:type ="PQ" value="35" /> <interpretationCode codeSystem="local" code="*" /> < referenceRange> <observationRange> <text>7 -20</text> </observationRange> </ referenceRange> </observation> </component> < component> <observation moodCode="EVN" classCode=" OBS"> <templateId root="2.16.840.1.858407.10.20.22.4.2& quot; /> <id nullFlavor="NA" /> <code codeSystem="local" code="CREAT" displayName="CREATININE " /> <statusCode code="completed" /> < effectiveTime value="574005640137" /> <value unit=&quot ;mg/dL" xsi:type="PQ" value="1.3" /> < interpretationCode codeSystem="local" code="*" /> &lt ;referenceRange> <observationRange> <text&gt ;0.6-1.0</text> </observationRange> </ referenceRange> </observation> </component> < component> <observation moodCode="EVN"classCode="OBS "> <templateId root="2.16.840.1.981908.10.20.22.4.2& quot; /> <id nullFlavor="NA" /> <code codeSystem="local" code="NA" displayName="SODIUM" /> <statusCode code="completed" /> < effectiveTime value="[id number]" /> <value unit=&quot ;mmol/L" xsi:type="PQ" value="138" /> < referenceRange> <observationRange> <text> 135-148</text> </observationRange> </ referenceRange> </observation> </component> < component> <observation moodCode="EVN" classCode=" OBS"> <templateId root="[id number]..22.4.2& quot; /> <id nullFlavor="NA" /> <code codeSystem="local" code="CL" displayName="CHLORIDE&quot ; /> <statusCode code="completed" />< effectiveTime value="644926481024" /> <value unit=&quot ;mmol/L" xsi:type="PQ" value="101" /> < referenceRange> <observationRange> <text> 98-110</text> </observationRange> </ referenceRange> </observation> </component> < component> <observation moodCode="EVN" classCode=" OBS"> <templateId root="2.16.840.1.278710.10.20.22.4.2& quot; /> <id nullFlavor="NA"/> <code codeSystem="local" code="AST" displayName="AST/SGOT& quot; /> <statusCode code="completed" /> & lt;effectiveTime value="239935220750" /> <value unit=& quot;Units/L" xsi:type="PQ" value="14" /> & lt;referenceRange> <observationRange> <text>10-37 </text> </observationRange> </referenceRange& gt; </observation> </component> <component> <observation moodCode="EVN" classCode="OBS"> <templateId root="2.16.840.1.321904.10.20.22.4.2" /> <id nullFlavor="NA" /> <codecodeSystem=" local" code="ALT" displayName="ALT/SGPT" /> <statusCode code="completed" /> <effectiveTime value="898677920003" /> <value unit="Units/L&quot ; xsi:type="PQ" value="29" /> <referenceRange > <observationRange> <text>< 66&lt ;/text> </observationRange> </referenceRange&gt ; </observation> </component> <component> <observation moodCode="EVN" classCode="OBS"> <templateId root="2.16.840.1.306764.10.20.22.4.2" /> <id nullFlavor="NA" /> <code codeSystem=" local" code="CO2" displayName="CARBON DIOXIDE" /> <statusCodecode="completed" /> < effectiveTime value="417714243307" /> <value unit="mmol /L" xsi:type="PQ" value="27" /> < referenceRange> <observationRange> <text> 21-32</text> </observationRange> </ referenceRange> </observation> </component> < component> <observation moodCode="EVN" classCode=" OBS"> <templateId root="2.16.840.1.049611.10.20.22.4.2& quot; /> <id nullFlavor="NA" /> <code codeSystem="local" code="TP" displayName="TOTAL PROTEIN " /> <statusCode code="completed" /> & lt;effectiveTime value="315857770981" /> <value unit=& quot;gm/dL" xsi:type="PQ" value="7.5" /> & lt;referenceRange> <observationRange> <text& gt;6.4-8.2</text> </observationRange> </ referenceRange> </observation> </component> < component> <observation moodCode="EVN" classCode=" OBS"> <templateId root="2.16.840.1.319991.10..22.4.2& quot; /> <id nullFlavor="NA" /> <code codeSystem="local" code="ALB" displayName="ALBUMIN&quot ; /> <statusCode code="completed" /> < effectiveTime value="104384622306" /> <value unit=&quot ;gm/dL" xsi:type="PQ" value="3.4" /> < referenceRange> <observationRange> <text> 3.4-5.0</text> </observationRange> </referenceRange& gt; </observation> </component> <component> <observation moodCode="EVN" classCode="OBS"> <templateId root="2.16.840.1.316743.10.20.22.4.2" /> <id nullFlavor="NA" /> <code codeSystem=&quot ;local" code="BILTOT" displayName="BILI TOTAL" /> <statusCode code="completed" /> < effectiveTime value="510210437966" /> <value unit=&quot ;mg/dL" xsi:type="PQ" value="0.3" /> < referenceRange> <observationRange> <text>0.0-1.0 </text> </observationRange> </referenceRange& gt; </observation> </component> <component> <observation moodCode="EVN" classCode="OBS"> <templateId root="2.16.840.1.235240.10.20.22.4.2" /> <id nullFlavor="NA" /> <code codeSystem=&quot ;local" code="ALKP" displayName="ALKALINE PHOSPHATASE TOTAL& quot; /> <statusCode code="completed" /> & lt;effectiveTime value="301613112132" /> <value unit=& quot;IU/L" xsi:type="PQ" value="46" /> < referenceRange> <observationRange> <text>45-117</ text> </observationRange> </referenceRange> </observation> </component> </organizer> </ entry> <entry> <organizer moodCode="EVN" classCode=& quot;BATTERY"> <templateId root=" 2.16.840.1.860246.10.20.22.4.1" /> <id nullFlavor="NA&quot ; /> <code codeSystem="local" code="MAG" displayName ="MAGNESIUM" /> <statusCode code="completed" /&gt ; <component> <observation moodCode="EVN" classCode="OBS"> <templateId root=" 2.16.840.1.390032.10.20.22.4.2" /> <id nullFlavor="NA& quot; /> <code codeSystem="local" code="MAG" displayName="MAGNESIUM" /> <statusCode code=" completed" /> <effectiveTime value="037163844316" /> <value unit="mg/dL" xsi:type="PQ" value=& quot;2.0" /> <referenceRange> < observationRange> <text>1.8-2.4</text> & lt;/observationRange> </referenceRange> </ observation> </component> </organizer> </entry> & lt;entry> <organizer moodCode="EVN" classCode="BATTERY& quot;> <templateId root="2.16.840.1.715556.10.20.22.4.1" /& gt; <id nullFlavor="NA" /> <code codeSystem=" local" code="TSH" displayName="THYROID STIM HORMONE (TSH)& quot; /> <statusCode code="completed" /> <component& gt; <observation moodCode="EVN" classCode="OBS"&gt ; <templateId root="2.16.840.1.370193.10.20.22.4.2" /> <id nullFlavor="NA" /> <code codeSystem=& quot;local" code="TSH" displayName="THYROID STIM HORMONE ( TSH)" /> <statusCode code="completed" /> & lt;effectiveTime value="647286175370" /> <value unit=& quot;uIU/mL" xsi:type="PQ" value="0.42" /> <referenceRange> <observationRange> <text >0.34-4.82</text> </observationRange> </ referenceRange> </observation> </component> </ organizer> </entry> <entry> <organizer moodCode="EVN& quot; classCode="BATTERY"> <templateId root=" 2.16.840.1.026956.10.20.22.4.1" /> <id nullFlavor="NA&quot ; /> <code codeSystem="local" code="GHGLUMON" displayName="GLUCOSE (POC)" /> <statusCode code=" completed" /> <component> <observation moodCode=& quot;EVN" classCode="OBS"> <templateId root=" 2.16.840.1.291202.10.20.22.4.2" /> <id nullFlavor="NA& quot; /> <code codeSystem="local" code="GHGLUMON& quot; displayName="GLUCOSE (POC)" /> <statusCode code=&quot ;completed" /> <effectiveTime value="125534190116&quot ; /> <value unit="mg/dL" xsi:type="PQ" value= "246" /> <interpretationCode codeSystem="local& quot; code="*" /> <referenceRange> < observationRange> <text>70-99</text> < /observationRange> </referenceRange> </observation& gt; </component> </organizer> </entry> <entry&gt ; <organizer moodCode="EVN" classCode="BATTERY"> <templateId root="2.16.840.1.008402.10.20.22.4.1" /> & lt;id nullFlavor="NA" /> <code codeSystem="local&quot ; code="GHGLUMON" displayName="GLUCOSE (POC)" /> &lt ;statusCode code="completed" /> <component> < observation moodCode="EVN" classCode="OBS"> < templateId root="2.16.840.1.501366.10.20.22.4.2" /> < id nullFlavor="NA" /> <code codeSystem="local&quot ; code="GHGLUMON" displayName="GLUCOSE (POC)" /> <statusCodecode="completed" /> <effectiveTime value="900305199259" /> <value unit="mg/dL" xsi: type="PQ" value="246" /> <interpretationCode codeSystem="local" code="*" /> < referenceRange> <observationRange> <text> 70-99</text> </observationRange> </ referenceRange> </observation> </component> </ organizer> </entry> <entry> <organizer moodCode="EVN "classCode="BATTERY"> <templateId root=" 2.16.840.1.680322.10.20.22.4.1" /> <id nullFlavor="NA&quot ; /> <code codeSystem="local" code="GHGLUMON" displayName="GLUCOSE (POC)" /> <statusCode code=" completed" /> <component> <observation moodCode=& quot;EVN" classCode="OBS"> <templateId root=" 2.16.840.1.018013.10.20.22.4.2" /> <id nullFlavor="NA" /&gt ; <code codeSystem="local" code="GHGLUMON" displayName="GLUCOSE (POC)" /> <statusCode code=" completed" /> <effectiveTime value="053786374883" /> <value unit="mg/dL" xsi:type="PQ" value=& quot;222" /> <interpretationCodecodeSystem="local&quot ; code="*" /> <referenceRange> < observationRange> <text>70-99</text> < /observationRange> </referenceRange> </observation& gt; </component> </organizer> </entry> <entry&gt ; <organizer moodCode="EVN" classCode="BATTERY"> <templateId root="2.16.840.1.686554.10.20.22.4.1" /> & lt;id nullFlavor="NA" /> <code codeSystem="local&quot ; code="GHGLUMON" displayName="GLUCOSE (POC)" /> &lt ;statusCode code="completed" /> <component> < observation moodCode="EVN" classCode="OBS"> < templateId root="2.16.840.1.717113.10.20.22.4.2" /> < id nullFlavor="NA" /> <code codeSystem="local&quot ; code="GHGLUMON" displayName="GLUCOSE (POC)" /> <statusCode code="completed" /><effectiveTime value=" 068802914112" /> <value unit="mg/dL" xsi:type=& quot;PQ" value="222" /> <interpretationCode codeSystem="local" code="*" /> < referenceRange> <observationRange> <text> 70-99</text> </observationRange> </ referenceRange> </observation> </component> </ organizer> </entry> <entry> <organizer moodCode="EVN " classCode="BATTERY"> <templateId root=" 2.16.840.1.860980.10.20.22.4.1" /> <id nullFlavor="NA&quot ; /> <code codeSystem="local" code="GHGLUMON" displayName="GLUCOSE (POC)" /> <statusCode code=" completed" /> <component> <observation moodCode=" EVN" classCode="OBS"> <templateId root=" 2.16.840.1.901480.10.20.22.4.2" /> <id nullFlavor="NA& quot; /> <code codeSystem="local" code="GHGLUMON&quot ; displayName="GLUCOSE (POC)" /> <statusCode code=&quot ;completed" /> <effectiveTime value="684453278138&quot ; /> <value unit="mg/dL" xsi:type="PQ" value= "143" /> <interpretationCode codeSystem="local& quot; code="*" /> <referenceRange> < observationRange> <text>70-99</text> < /observationRange> </referenceRange> </observation& gt; </component> </organizer> </entry> <entry&gt ; <organizer moodCode="EVN" classCode="BATTERY"> <templateId root="2.16.840.1.599661.10.20.22.4.1" /> & lt;id nullFlavor="NA" /> <code codeSystem="local&quot ; code="GHGLUMON" displayName="GLUCOSE (POC)" /> < statusCode code="completed" /> <component> < observation moodCode="EVN" classCode="OBS"> < templateId root="2.16.840.1.514034.10.20.22.4.2" /> < id nullFlavor="NA" /> <code codeSystem="local&quot ; code="GHGLUMON" displayName="GLUCOSE (POC)" /> < statusCode code="completed" /> <effectiveTime value=& quot;063975767931" /> <value unit="mg/dL" xsi:type ="PQ" value="143"/> <interpretationCode codeSystem="local" code="*" /><referenceRange> <observationRange> <text>70-99</text> </observationRange> </referenceRange> </ observation> </component> </organizer> </entry> &lt ;entry> <organizer moodCode="EVN" classCode="BATTERY& quot;> <templateId root="2.16.840.1.168077.10.20.22.4.1" /& gt; <id nullFlavor="NA" /> <code codeSystem=" local" code="PT" displayName="PROTHROMBIN TIME WITH INR&quot ; /> <statusCode code="completed" /> <component& gt; <observation moodCode="EVN" classCode="OBS"&gt ; <templateId root="2.16.840.1.168802.10.20.22.4.2" /> <id nullFlavor="NA" /> <code codeSystem=& quot;local" code="INRX" displayName="INTERNATIONAL NORMAL RATIO" /> <statusCode code="completed" /> <effectiveTime value="453565063013" /> <value unit="" xsi:type="PQ" value="1.1" /> < referenceRange> <observationRange> <text> 0.9-1.1</text> </observationRange> </ referenceRange> </observation> </component> < component> <observation moodCode="EVN" classCode=" OBS"> <templateId root="2.16.840.1.495757.10.20.22.4.2& quot;/> <id nullFlavor="NA" /> <code codeSystem="local"code="PTPAT" displayName=" PROTHROMBIN TIME" /> <statusCode code="completed" /> <effectiveTime value="599688032160" /> & lt;value unit="sec" xsi:type="PQ" value="13.0" /& gt; <interpretationCode codeSystem="local" code="*& quot; /> <referenceRange> <observationRange> <text>10.0-12.8</text> </observationRange& gt; </referenceRange> </observation> </ component> </organizer> </entry> <entry> < organizer moodCode="EVN" classCode="BATTERY"> < templateId root="2.16.840.1.062755.10.20.22.4.1" /> <id nullFlavor="NA" /> <code codeSystem="local" code= "METABC" displayName="METABOLIC PANEL, COMPREHN" /> <statusCode code="completed" /> <component> & lt;observation moodCode="EVN" classCode="OBS"> & lt;templateId root="2.16.840.1.087046.10.20.22.4.2" /> < id nullFlavor="NA" /> <code codeSystem="local&quot ; code="K" displayName="POTASSIUM" /> < statusCode code="completed" /> <effectiveTime value=& quot;937776281719" /> <value unit="mmol/L" xsi: type="PQ" value="4.4" /> <referenceRange> <observationRange> <text>3.5-5.3</text> </observationRange> </referenceRange> < /observation> </component> <component> < observation moodCode="EVN" classCode="OBS"> < templateId root="2.16.840.1.637104.10.20.22.4.2" /> < id nullFlavor="NA" /> <code codeSystem="local&quot ; code="eGFR" displayName="EST GFR (MDRD)" /> & lt;statusCode code="completed" /> <effectiveTime value=" 358689781908" /> <value unit="mL/min" xsi:type=& quot;PQ" value="40" /> <interpretationCode codeSystem="local" code="*" /> < referenceRange> <observationRange> <text> > 59</text> </observationRange> </ referenceRange> </observation> </component> < component> <observation moodCode="EVN" classCode="OBS" > <templateId root="2.16.840.1.599902.10.20.22.4.2" /& gt; <id nullFlavor="NA" /> <code codeSystem=& quot;local" code="GAP" displayName="ANION GAP" /> <statusCode code="completed" /> < effectiveTime value="180876203674" /> <value unit=&quot ;mmol/L" xsi:type="PQ" value="9" /> < referenceRange> <observationRange> <text> 5-15</text> </observationRange> </ referenceRange> </observation> </component> < component> <observation moodCode="EVN" classCode=" OBS"> <templateId root="2.16.840.1.271656.10.20.22.4.2& quot; /> <id nullFlavor="NA" /> <code codeSystem="local" code="eCrCl" displayName="EST CrCl ( CG)" /> <statusCode code="completed" /> <effectiveTime value="697154989130" /> <value unit="mL/min" xsi:type="PQ" value="55" /> & lt;interpretationCode codeSystem="local" code="*" /> <referenceRange> <observationRange> & lt;text>> 59</text> </observationRange> & lt;/referenceRange> </observation></component> < component> <observation moodCode="EVN" classCode=" OBS"> <templateId root="2.16.840.1.653482.10.20.22.4.2& quot; /> <id nullFlavor="NA" /> <code codeSystem="local" code="GLU" displayName="GLUCOSE&quot ; /> <statusCode code="completed" /> < effectiveTime value="110378254483" /> <value unit=&quot ;mg/dL" xsi:type="PQ" value="103" /> < interpretationCode codeSystem="local" code="*" /> <referenceRange> <observationRange> < text>70-99</text> </observationRange> </ referenceRange> </observation> </component> < component> <observation moodCode="EVN" classCode=" OBS"> <templateId root="2.16.840.1.719008.10.20.22.4.2& quot; /> <id nullFlavor="NA" /> <code codeSystem="local" code="CA" displayName="CALCIUM&quot ; /> <statusCode code="completed" /> < effectiveTime value="810361206197" /> <value unit=&quot ;mg/dL" xsi:type="PQ" value="9.2" /> < referenceRange> <observationRange><text>8.5-10.1</ text> </observationRange> </referenceRange> </observation> </component> <component> <observationmoodCode="EVN" classCode="OBS"> <templateId root="2.16.840.1.304555.10.20.22.4.2" /> <id nullFlavor="NA" /> <code codeSystem=" local" code="BUN" displayName="BLOOD UREA NITROGEN" /& gt; <statusCode code="completed" /> < effectiveTime value="720797725406" /> <value unit=&quot ;mg/dL" xsi:type="PQ" value="39" /> < interpretationCode codeSystem="local" code="*" /> < referenceRange> <observationRange> <text> 7-20</text> </observationRange> </ referenceRange> </observation> </component> < component> <observation moodCode="EVN" classCode=" OBS"> <templateId root="2.16.840.1.940004.10.20.22.4.2& quot; /> <id nullFlavor="NA" /> <code codeSystem="local" code="CREAT" displayName="CREATININE " /> <statusCode code="completed" /> & lt;effectiveTime value="883750333445" /> <value unit=& quot;mg/dL" xsi:type="PQ" value="1.3" /> & lt;interpretationCode codeSystem="local" code="*" /> <referenceRange> <observationRange> & lt;text>0.6-1.0</text> </observationRange> & lt;/referenceRange> </observation> </component> <component> <observation moodCode="EVN" classCode=& quot;OBS"> <templateId root=" 2.16.840.1.593376.10..22.4.2" /> <id nullFlavor="NA& quot; /> <code codeSystem="local" code="NA" displayName="SODIUM" /> <statusCode code=" completed" /> <effectiveTime value="124532827735" /> <value unit="mmol/L" xsi:type="PQ" value=& quot;139" /> <referenceRange> < observationRange> <text>135-148</text> < /observationRange> </referenceRange> </observation& gt; </component> <component> <observation moodCode="EVN" classCode="OBS"> <templateId root="2.16.840.1.428935.10.20.22.4.2" /> <id nullFlavor ="NA" /> <code codeSystem="local" code=" CL" displayName="CHLORIDE" /> <statusCode code=" completed" /> <effectiveTime value="760407565760" /> <value unit="mmol/L" xsi:type="PQ" value=& quot;102" /> <referenceRange> < observationRange> <text>98-110</text> &lt ;/observationRange> </referenceRange> </observation& gt; </component> <component> <observation moodCode="EVN" classCode="OBS"> <templateId root="2.16.840.1.179607.10.20.22.4.2" /> <id nullFlavor ="NA" /> <code codeSystem="local" code=" AST" displayName="AST/SGOT" /> <statusCode code=& quot;completed" /> <effectiveTime value="263259886298& quot; /> <value unit="Units/L" xsi:type="PQ" value=& quot;13" /> <referenceRange> < observationRange> <text>10-37</text> </ observationRange> </referenceRange> </observation&gt ; </component> <component> <observation moodCode ="EVN" classCode="OBS"> <templateId root=& quot;2.16.840.1.955738.10.20.22.4.2" /> <id nullFlavor="NA& quot; /> <code codeSystem="local" code="ALT" displayName="ALT/SGPT" /> <statusCode code=" completed" /> <effectiveTime value="712461106848" /> <value unit="Units/L" xsi:type="PQ" value= "26" /> <referenceRange> <observationRange&gt ; <text>< 66</text> </ observationRange> </referenceRange> </observation&gt ; </component> <component> <observation moodCode= "EVN" classCode="OBS"> <templateId root=" 2.16.840.1.286887.10.20.22.4.2" /> <id nullFlavor="NA& quot; /> <code codeSystem="local" code="CO2" displayName="CARBON DIOXIDE" /> <statusCode code=" completed" /> <effectiveTime value="431755409321" /> <value unit="mmol/L" xsi:type="PQ" value="28 " /> <referenceRange> <observationRange&gt ; <text>21-32</text> </observationRange& gt; </referenceRange> </observation> </component > <component> <observation moodCode="EVN" classCode="OBS"> <templateId root=" 2.16.840.1.296546.10.20.22.4.2" /> <id nullFlavor="NA& quot;/> <code codeSystem="local" code="TP" displayName="TOTAL PROTEIN" /> <statusCode code=" completed" /> <effectiveTime value="514732750517" /> <value unit="gm/dL" xsi:type="PQ" value=& quot;6.9" /> <referenceRange> < observationRange> <text>6.4-8.2</text> </ observationRange> </referenceRange> </observation&gt ; </component> <component> <observation moodCode ="EVN" classCode="OBS"> <templateId root=& quot;2.16.840.1.091400.10.20.22.4.2" /> <id nullFlavor=&quot ;NA" /> <code codeSystem="local" code="ALB& quot; displayName="ALBUMIN" /> <statusCode code="completed& quot; /> <effectiveTime value="174379879931" /> <value unit="gm/dL" xsi:type="PQ" value="3.1& quot; /> <interpretationCode codeSystem="local" code=& quot;*" /> <referenceRange> < observationRange> <text>3.4-5.0</text> & lt;/observationRange> </referenceRange> </ observation> </component> <component> < observation moodCode="EVN" classCode="OBS"> < templateId root="2.16.840.1.618389.10.20.22.4.2" /> < id nullFlavor="NA" /> <code codeSystem="local&quot ; code="BILTOT" displayName="BILI TOTAL" /> < statusCode code="completed" /> <effectiveTime value=& quot;081488738949" /> <value unit="mg/dL" xsi:type ="PQ" value="0.4" /> <referenceRange> <observationRange> <text>0.0-1.0</text> </observationRange> </referenceRange> &lt ;/observation> </component> <component> < observation moodCode="EVN" classCode="OBS"> < templateId root="2.16.840.1.107082.10.20.22.4.2" /> < id nullFlavor="NA" /> <code codeSystem="local&quot ; code="ALKP" displayName="ALKALINE PHOSPHATASE TOTAL" /&gt ; <statusCode code="completed" /> < effectiveTime value="763087093109" /> <value unit=&quot ;IU/L" xsi:type="PQ" value="42" /> < interpretationCode codeSystem="local" code="*" /> <referenceRange> <observationRange> < text>45-117</text> </observationRange> </ referenceRange> </observation> </component> </ organizer> </entry> <entry> <organizer moodCode="EVN " classCode="BATTERY"> <templateId root=" 2.16.840.1.511046.10.20.22.4.1" /> <id nullFlavor="NA&quot ; /> <code codeSystem="local" code="MAG" displayName="MAGNESIUM" /> <statusCode code="completed " /> <component> <observation moodCode="EVN& quot; classCode="OBS"> <templateId root=" 2.16.840.1.342978.10..22.4.2" /> <id nullFlavor="NA& quot; /> <code codeSystem="local" code="MAG" displayName="MAGNESIUM" /> <statusCode code=" completed" /> <effectiveTime value="217169977853" /> <value unit="mg/dL" xsi:type="PQ" value=& quot;2.1" /> <referenceRange> < observationRange> <text>1.8-2.4</text> </ observationRange> </referenceRange> </observation&gt ; </component> </organizer> </entry> <entry> <organizer moodCode="EVN" classCode="BATTERY"> <templateId root="2.16.840.1.766425.10.20.22.4.1" /> < id nullFlavor="NA" /> <code codeSystem="local" code="CBCD" displayName="CBC W/DIFF" /> < statusCode code="completed" /> <component> < observation moodCode="EVN" classCode="OBS"> < templateId root="2.16.840.1.826515.10..22.4.2" /> < id nullFlavor="NA" /> <code codeSystem="local&quot ; code="EO#" displayName="EOSINOPHIL #" /> < statusCode code="completed" /> <effectiveTime value=& quot;054995566950" /> <value unit="k/cumm" xsi: type="PQ" value="0.1" /> <referenceRange> <observationRange> <text>0.1-0.5</text& gt; </observationRange> </referenceRange> </ observation> </component> <component> < observation moodCode="EVN" classCode="OBS"> < templateId root="2.16.840.1.664553.10.20.22.4.2" /> < id nullFlavor="NA" /> <code codeSystem="local&quot ; code="EO%" displayName="EOSINOPHIL %" /&gt ; <statusCode code="completed" /> < effectiveTime value="718213414087" /> <value unit=&quot ;%" xsi:type="PQ" value="1" /> < interpretationCode codeSystem="local" code="*" /> & lt;referenceRange> <observationRange> <text& gt;2-4</text> </observationRange> </ referenceRange> </observation> </component> < component> <observation moodCode="EVN" classCode=" OBS"> <templateId root="2.16.840.1.895101.10.20.22.4.2& quot; /> <id nullFlavor="NA" /> <code codeSystem="local" code="GR#" displayName="GRANULOCYTE #" /> <statusCode code="completed" /> <effectiveTime value="155165563075" /> <value unit=& quot;k/cumm" xsi:type="PQ" value="9.0" /> & lt;referenceRange> <observationRange> <text& gt;2.0-9.0</text></observationRange> </referenceRange&gt ; </observation> </component> <component> <observation moodCode="EVN" classCode="OBS"> <templateId root="2.16.840.1.383385.10.20.22.4.2" /> <id nullFlavor="NA" /> <code codeSystem=" local" code="GR%" displayName="GRANULOCYTE % " /> <statusCode code="completed" /> & lt;effectiveTime value="804201169543" /> <valueunit=& quot;%" xsi:type="PQ" value="72" /> <referenceRange> <observationRange> < text>50-75</text> </observationRange> </ referenceRange> </observation> </component> < component> <observation moodCode="EVN" classCode=" OBS"> <templateId root="2.16.840.1.807791.10.20.22.4.2& quot; /> <id nullFlavor="NA" /> <code codeSystem="local" code="LY#" displayName="LYMPHOCYTE # " /> <statusCode code="completed" /> & lt;effectiveTime value="096652553392" /> <value unit=& quot;k/cumm" xsi:type="PQ" value="2.2" /> & lt;referenceRange><observationRange> <text>1.0-4.0& lt;/text> </observationRange> </referenceRange& gt; </observation> </component> <component> <observation moodCode="EVN" classCode="OBS">&lt ;templateId root="2.16.840.1.925782.10.20.22.4.2" /> < id nullFlavor="NA" /> <code codeSystem="local&quot ; code="LY%" displayName="LYMPHOCYTE %" /&gt ; <statusCode code="completed" /> < effectiveTime value="353375980401" /> <value unit=&quot ;%" xsi:type="PQ" value="18" /> &lt ;interpretationCode codeSystem="local" code="*" /> <referenceRange> <observationRange> < text>20-30</text> </observationRange> </ referenceRange> </observation> </component> < component> <observation moodCode="EVN" classCode="OBS& quot;> <templateId root="[id number]&quot ; /> <id nullFlavor="NA" /> <code codeSystem="local" code="MCH" displayName="MEAN CELL HGB" /> <statusCode code="completed" /> <effectiveTime value="[id number]" /> <value unit="pg" xsi:type="PQ" value="28.0" /> <referenceRange> <observationRange> <text>27.0- 33.0</text> </observationRange> </ referenceRange> </observation> </component> < component> <observation moodCode="EVN" classCode=" OBS"> <templateId root="[id number]& quot; /> <id nullFlavor="NA" /> <code codeSystem="local" code="MCHC" displayName="MEAN CELL HGB CONCENTRATION" /> <statusCode code="completed&quot ; /> <effectiveTime value="337367354281" /> <value unit="g/dL" xsi:type="PQ" value="30.8&quot ; /> <interpretationCode codeSystem="local" code=" *" /> <referenceRange> <observationRange&gt ; <text>32.0-37.0</text> </ observationRange> </referenceRange> </observation&gt ; </component> <component> <observation moodCode ="EVN" classCode="OBS"> <templateId root=& quot;2.16.840.1.053562.10.20.22.4.2" /> <id nullFlavor=&quot ;NA" /> <code codeSystem="local" code="MCV& quot; displayName="MEAN CELL VOLUME" /> <statusCode code="completed" /> <effectiveTime value=" 045506356066" /> <value unit="fl" xsi:type="PQ& quot; value="91.0" /> <referenceRange> & lt;observationRange> <text>80.0-100.0</text> </observationRange> </referenceRange> </ observation> </component> <component> < observation moodCode="EVN" classCode="OBS"> < templateId root="2.16.840.1.577627.10..22.4.2" /> < id nullFlavor="NA" /> <code codeSystem="local&quot ; code="MO#" displayName="MONOCYTE #" /> < statusCode code="completed" /> <effectiveTime value=& quot;462482311483" /> <value unit="k/cumm" xsi: type="PQ" value="1.2" /> <interpretationCode codeSystem="local" code="*" /> < referenceRange> <observationRange> <text>0.1-1.0< /text> </observationRange> </referenceRange> </observation> </component> <component> <observation moodCode="EVN" classCode="OBS"> < templateId root="2.16.840.1.038972.10.20.22.4.2" /> < id nullFlavor="NA" /> <code codeSystem="local&quot ; code="MO%" displayName="MONOCYTE %" /> <statusCode code="completed" /> < effectiveTime value="906873248269" /> <value unit=&quot ;%" xsi:type="PQ" value="9" /> < interpretationCode codeSystem="local" code="*" /> <referenceRange> <observationRange> < text>4-6</text> </observationRange> </ referenceRange> </observation> </component> < component><observation moodCode="EVN" classCode="OBS"& gt; <templateId root="2.16.840.1.764643.10.20.22.4.2" /&gt ; <id nullFlavor="NA" /> <code codeSystem=" local" code="RBC" displayName="RED BLOOD CELL" /> <statusCode code="completed" /> < effectiveTime value="584992347200" /> <value unit=&quot ;m/cumm" xsi:type="PQ" value="3.57" /> < interpretationCode codeSystem="local" code="*" /> <referenceRange> <observationRange> < text>4.00-6.00</text> </observationRange> &lt ;/referenceRange> </observation> </component> & lt;component> <observation moodCode="EVN" classCode=&quot ;OBS"> <templateId root="2.16.840.1.511639.10.20.22.4.2 " /> <id nullFlavor="NA" /> <code codeSystem="local" code="RDW" displayName="RED CELL DISTRIBUTION WIDTH" /> <statusCode code="completed" /> <effectiveTime value="587394992942" /> < value unit="%" xsi:type="PQ" value="16.2" /> <interpretationCode codeSystem="local" code="*& quot; /> <referenceRange> <observationRange> <text>11.0-15.6</text> </observationRange> </referenceRange> </observation> </ component> <component> <observation moodCode="EVN& quot; classCode="OBS"> <templateId root=" 2.16.840.1.658819.10.20.22.4.2" /> <id nullFlavor="NA& quot; /> <code codeSystem="local" code="WBC" displayName="WHITE BLOOD CELL" /> <statusCode code=& quot;completed" /> <effectiveTime value="937083997537& quot; /> <value unit="k/cumm" xsi:type="PQ" value="12.5" /> <interpretationCode codeSystem=" local" code="*" /> <referenceRange> <observationRange> <text>5.0-10.0</text> </observationRange> </referenceRange> </ observation> </component> <component> < observation moodCode="EVN" classCode="OBS"> < templateId root="2.16.840.1.906846.10.20.22.4.2" /> < id nullFlavor="NA" /> <code codeSystem="local&quot ; code="HGBT" displayName="HEMOGLOBIN" /> < statusCode code="completed" /> <effectiveTime value=" 977883544617" /> <value unit="gm/dL" xsi:type=& quot;PQ" value="10.0" /> <interpretationCode codeSystem="local" code="*" /> < referenceRange> <observationRange> <text> 12.0-16.0</text> </observationRange> </ referenceRange> </observation> </component> < component> <observation moodCode="EVN" classCode="OBS&quot ;> <templateId root="2.16.840.1.501907.10.20.22.4.2" /& gt; <id nullFlavor="NA" /> <code codeSystem=& quot;local" code="HCTT" displayName="HEMATOCRIT"/> <statusCode code="completed" /> < effectiveTime value="654758435625" /> <value unit=&quot ;%" xsi:type="PQ" value="32.5" /> & lt;interpretationCode codeSystem="local" code="*" /> <referenceRange> <observationRange> & lt;text>37.0-47.0</text> </observationRange> </referenceRange></observation> </component> < component> <observation moodCode="EVN" classCode=" OBS"> <templateId root="2.16.840.1.839613.10.20.22.4.2& quot; /> <id nullFlavor="NA" /> <code codeSystem="local" code="PLTT" displayName="PLATELET COUNT" /> <statusCode code="completed" /> <effectiveTime value="425778487257" /> <value unit="k/cumm" xsi:type="PQ" value="307" /> <referenceRange> <observationRange> <text >150-450</text> </observationRange> </ referenceRange> </observation> </component> </ organizer> </entry> <entry> <organizer moodCode="EVN " classCode="BATTERY"> <templateId root=" 2.16.840.1.732381.10.20.22.4.1" /> <id nullFlavor="NA&quot ; /> <code codeSystem="local" code="PT" displayName="PROTHROMBIN TIME WITH INR" /> <statusCode code ="completed" /> <component> <observation moodCode="EVN" classCode="OBS"> <templateId root="2.16.840.1.551692.10.20.22.4.2" /> <id nullFlavor ="NA" /> <code codeSystem="local" code=" INRX" displayName="INTERNATIONAL NORMAL RATIO" /> < statusCode code="completed" /> <effectiveTime value=& quot;002393517765" /> <value unit="" xsi:type=& quot;PQ" value="1.1" /> <referenceRange> <observationRange> <text>0.9-1.1</text> </observationRange> </referenceRange> </ observation> </component> <component> < observation moodCode="EVN" classCode="OBS"> < templateId root="2.16.840.1.944197.10.20.22.4.2" /> < id nullFlavor="NA" /> <code codeSystem="local&quot ; code="PTPAT" displayName="PROTHROMBIN TIME" /> <statusCodecode="completed" /> <effectiveTime value="672228772793" /> <value unit="sec" xsi:type ="PQ" value="13.0" /> <interpretationCode codeSystem="local" code="*" /> < referenceRange> <observationRange> <text> 10.0-12.8</text> </observationRange> </ referenceRange> </observation> </component> </ organizer> </entry> <entry> <organizer moodCode="EVN " classCode="BATTERY"> <templateId root=" 2.16.840.1.962089.10.20.22.4.1" /> <id nullFlavor="NA&quot ; /> <code codeSystem="local" code="METABC" displayName="METABOLIC PANEL, COMPREHN" /> <statusCode code ="completed" /> <component> <observation moodCode="EVN" classCode="OBS"> <templateId root="2.16.840.1.873577.10.20.22.4.2" /> <id nullFlavor ="NA" /> <code codeSystem="local" code=" K" displayName="POTASSIUM" /> <statusCode code=& quot;completed" /> <effectiveTime value="183164724318& quot; /> <value unit="mmol/L" xsi:type="PQ" value="4.4" /> <referenceRange> < observationRange> <text>3.5-5.3</text> & lt;/observationRange> </referenceRange> </ observation> </component> <component> < observation moodCode="EVN" classCode="OBS"> < templateId root="2.16.840.1.550043.10.20.22.4.2" /> < id nullFlavor="NA" /> <code codeSystem="local&quot ; code="eGFR" displayName="EST GFR (MDRD)" /> & lt;statusCode code="completed" /> <effectiveTime value=& quot;739728007627" /> <value unit="mL/min" xsi: type="PQ" value="40" /> <interpretationCode codeSystem="local" code="*" /> < referenceRange> <observationRange> <text> > 59</text> </observationRange> </ referenceRange> </observation> </component> < component> <observation moodCode="EVN" classCode=" OBS"> <templateId root="2.16.840.1.320295.10.20.22.4.2& quot; /> <id nullFlavor="NA" /> <code codeSystem="local" code="GAP" displayName="ANION GAP& quot; /> <statusCode code="completed" /> & lt;effectiveTime value="369305895520" /> <value unit=& quot;mmol/L" xsi:type="PQ" value="9" /> &lt ;referenceRange> <observationRange> <text>5-15</ text> </observationRange> </referenceRange> </observation> </component> <component> <observation moodCode="EVN" classCode="OBS"> <templateId root="2.16.840.1.160851.10.20.22.4.2" /> <id nullFlavor="NA" /> <code codeSystem=" local" code="eCrCl" displayName="EST CrCl (CG)" /> <statusCode code="completed" /> < effectiveTime value="446102911538" /> <value unit=&quot ;mL/min" xsi:type="PQ" value="55" /> < interpretationCode codeSystem="local" code="*" /> <referenceRange> <observationRange> < text>> 59</text> </observationRange> & lt;/referenceRange> </observation> </component> <component> <observation moodCode="EVN" classCode=& quot;OBS"> <templateId root=" 2.16.840.1.614326.10.20.22.4.2" /> <id nullFlavor="NA& quot; /> <code codeSystem="local" code="GLU" displayName="GLUCOSE" /> <statusCode code=" completed" /> <effectiveTime value="598601088322" /> <value unit="mg/dL" xsi:type="PQ" value=& quot;103" /> <interpretationCodecodeSystem="local&quot ; code="*" /> <referenceRange> < observationRange> <text>70-99</text> < /observationRange> </referenceRange> </observation& gt; </component> <component> <observation moodCode="EVN" classCode="OBS"> <templateId root="2.16.840.1.426219.10.20.22.4.2" /> <id nullFlavor ="NA" /> <code codeSystem="local" code=" CA" displayName="CALCIUM" /> <statusCode code=& quot;completed" /> <effectiveTime value="323952047954& quot; /> <value unit="mg/dL" xsi:type="PQ" value="9.2" /> <referenceRange> < observationRange> <text>8.5-10.1</text> </ observationRange> </referenceRange> </observation&gt ; </component> <component> <observation moodCode ="EVN" classCode="OBS"> <templateId root=& quot;2.16.840.1.681690.10.20.22.4.2" /> <id nullFlavor=&quot ;NA" /> <code codeSystem="local" code="BUN& quot; displayName="BLOOD UREA NITROGEN" /> <statusCode code="completed" /> <effectiveTime value=" 357654944661" /> <value unit="mg/dL" xsi:type=& quot;PQ" value="39" /> <interpretationCode codeSystem="local" code="*" /> <referenceRange > <observationRange> <text>7-20</text& gt; </observationRange> </referenceRange> </observation> </component> <component> &lt ;observation moodCode="EVN" classCode="OBS"> &lt ;templateId root="2.16.840.1.125139.10.20.22.4.2" /> < id nullFlavor="NA" /> <code codeSystem="local&quot ; code="CREAT" displayName="CREATININE" /> < statusCode code="completed" /> <effectiveTime value=& quot;475747977741" /> <value unit="mg/dL" xsi:type ="PQ" value="1.3" /> <interpretationCode codeSystem="local" code="*" /> < referenceRange> <observationRange> <text>0.6- 1.0</text> </observationRange> </ referenceRange> </observation> </component> < component> <observation moodCode="EVN" classCode=" OBS"> <templateId root="2.16.840.1.005742.10..22.4.2&quot ; /> <id nullFlavor="NA" /> <code codeSystem="local" code="NA" displayName="SODIUM" /> <statusCode code="completed" /> < effectiveTime value="762218582083" /> <value unit=&quot ;mmol/L" xsi:type="PQ" value="139" /> < referenceRange> <observationRange> <text> 135-148</text> </observationRange> </ referenceRange> </observation> </component> < component> <observation moodCode="EVN" classCode="OBS&quot ;> <templateId root="2.16.840.1.066857.10.20.22.4.2" /& gt; <id nullFlavor="NA" /> <code codeSystem=& quot;local" code="CL" displayName="CHLORIDE" /> <statusCode code="completed" /> < effectiveTime value="324751461743" /> <value unit=&quot ;mmol/L" xsi:type="PQ" value="102" /> < referenceRange> <observationRange> <text> 98-110</text> </observationRange> </ referenceRange> </observation> </component> < component> <observation moodCode="EVN" classCode=" OBS"> <templateId root="2.16.840.1.523485.10.20.22.4.2& quot; /> <id nullFlavor="NA" /> <code codeSystem="local" code="AST" displayName="AST/SGOT& quot; /> <statusCode code="completed" /> & lt;effectiveTime value="412514439493" /> <value unit=& quot;Units/L" xsi:type="PQ" value="13" /> < referenceRange> <observationRange> <text> 10-37</text> </observationRange> </ referenceRange> </observation> </component> < component> <observation moodCode="EVN" classCode=" OBS"> <templateId root="2.16.840.1.269523.10.20.22.4.2& quot; /> <id nullFlavor="NA" /> <code codeSystem="local" code="ALT" displayName="ALT/SGPT& quot; /> <statusCode code="completed" /> & lt;effectiveTime value="763497232653" /> <value unit=& quot;Units/L" xsi:type="PQ" value="26" /> & lt;referenceRange> <observationRange> <text& gt;< 66</text> </observationRange> </ referenceRange> </observation> </component> < component> <observation moodCode="EVN" classCode=" OBS"> <templateId root="2.16.840.1.390868.10.20.22.4.2& quot; /> <idnullFlavor="NA" /> <code codeSystem="local" code="CO2" displayName="CARBON DIOXIDE" /> <statusCode code="completed" /> <effectiveTime value="879495073341" /> <value unit="mmol/L" xsi:type="PQ" value="28" /> <referenceRange> <observationRange> &lt ;text>21-32</text> </observationRange> </ referenceRange> </observation> </component> < component> <observation moodCode="EVN" classCode=" OBS"> <templateId root="2.16.840.1.194516.10.20.22.4.2& quot; /> <id nullFlavor="NA" /> <code codeSystem="local" code="TP" displayName="TOTAL PROTEIN " /> <statusCode code="completed" /> & lt;effectiveTime value="421919873840" /> <value unit=& quot;gm/dL" xsi:type="PQ" value="6.9" /> & lt;referenceRange> <observationRange> <text& gt;6.4-8.2</text> </observationRange> </ referenceRange> </observation> </component> < component> <observation moodCode="EVN" classCode=" OBS"> <templateId root="2.16.840.1.405315.10.20.22.4.2& quot; /> <id nullFlavor="NA" /> <code codeSystem="local" code="ALB" displayName="ALBUMIN&quot ; /> <statusCode code="completed" /> < effectiveTime value="656482710266" /> <value unit=&quot ;gm/dL" xsi:type="PQ" value="3.1" /> < interpretationCode codeSystem="local" code="*" /> & lt;referenceRange> <observationRange> <text& gt;3.4-5.0</text> </observationRange> </ referenceRange> </observation> </component> < component> <observation moodCode="EVN" classCode=" OBS"> <templateId root="2.16.840.1.427305.10.20.22.4.2& quot; /> <id nullFlavor="NA" /> <code codeSystem="local" code="BILTOT" displayName="BILI TOTAL" /> <statusCode code="completed" /> <effectiveTime value="279855787792" /> <value unit="mg/dL" xsi:type="PQ" value="0.4" /> <referenceRange> <observationRange> &lt ;text>0.0-1.0</text> </observationRange> </ referenceRange> </observation> </component> < component> <observation moodCode="EVN" classCode=" OBS"> <templateId root="2.16.840.1.817751.10.20.22.4.2& quot; /> <id nullFlavor="NA" /> <code codeSystem="local" code="ALKP" displayName="ALKALINE PHOSPHATASE TOTAL" /> <statusCode code="completed&quot ; /> <effectiveTime value="422487448770" /> <value unit="IU/L" xsi:type="PQ" value="42" / > <interpretationCode codeSystem="local" code="*& quot; /> <referenceRange> <observationRange> <text>45-117</text> </observationRange> </referenceRange> </observation> </component> </organizer> </entry> <entry> <organizer moodCode=& quot;EVN" classCode="BATTERY"> <templateId root=" 2.16.840.1.875363.10.20.22.4.1" /> <id nullFlavor="NA&quot ; /> <code codeSystem="local" code="MAG" displayName="MAGNESIUM" /> <statusCode code="completed " /> <component> <observation moodCode="EVN& quot; classCode="OBS"><templateId root=" 2.16.840.1.863681.10.20.22.4.2" /> <id nullFlavor="NA& quot; /> <code codeSystem="local" code="MAG" displayName="MAGNESIUM" /> <statusCode code=" completed" /> <effectiveTime value="361678975496" /> <value unit="mg/dL" xsi:type="PQ" value=& quot;2.1" /> <referenceRange> < observationRange> <text>1.8-2.4</text> & lt;/observationRange> </referenceRange> </ observation> </component> </organizer> </entry> & lt;entry> <organizer moodCode="EVN" classCode="BATTERY& quot;> <templateId root="2.16.840.1.652828.10.20.22.4.1" /> <id nullFlavor="NA" /> <code codeSystem=" local" code="CBCD" displayName="CBCW/DIFF" /> & lt;statusCode code="completed" /> <component> < observation moodCode="EVN" classCode="OBS"> < templateId root="2.16.840.1.255835.10.20.22.4.2" /> < id nullFlavor="NA" /> <code codeSystem="local" code="EO#" displayName="EOSINOPHIL #"/> < statusCode code="completed" /> <effectiveTime value=& quot;427566268091" /> <value unit="k/cumm" xsi: type="PQ" value="0.1" /> <referenceRange> <observationRange><text>0.1-0.5</text> </observationRange> </referenceRange> </ observation> </component> <component> < observation moodCode="EVN" classCode="OBS"> < templateId root="2.16.840.1.930467.10.20.22.4.2" /> < id nullFlavor="NA" /> <code codeSystem="local&quot ; code="EO%" displayName="EOSINOPHIL %" /&gt ; <statusCode code="completed" /> < effectiveTime value="460310488750" /> <value unit=&quot ;%" xsi:type="PQ" value="1" /> < interpretationCode codeSystem="local" code="*" /> <referenceRange> <observationRange> < text>2-4</text> </observationRange> </ referenceRange> </observation> </component> < component> <observation moodCode="EVN" classCode=" OBS"> <templateId root="2.16.840.1.097357.10.20.22.4.2& quot; /> <id nullFlavor="NA" /> <code codeSystem="local" code="GR#" displayName="GRANULOCYTE #" /> <statusCode code="completed" /> <effectiveTime value="560056566929" /> <value unit=& quot;k/cumm" xsi:type="PQ" value="9.0" /> & lt;referenceRange> <observationRange> <text& gt;2.0-9.0</text> </observationRange> </ referenceRange> </observation> </component> < component> <observation moodCode="EVN" classCode=" OBS"> <templateId root="2.16.840.1.107784.10.20.22.4.2& quot; /> <id nullFlavor="NA" /> <code codeSystem="local" code="GR%" displayName=" GRANULOCYTE %" /> <statusCode code="completed& quot; /> <effectiveTime value="193640658653" /> <value unit="%" xsi:type="PQ" value=" 72" /> <referenceRange> <observationRange& gt; <text>50-75</text> </observationRange> </referenceRange> </observation> </component > <component> <observation moodCode="EVN" classCode="OBS"> <templateId root=" 2.16.840.1.124159.10.20.22.4.2" /> <id nullFlavor="NA" /& gt; <code codeSystem="local" code="LY#" displayName="LYMPHOCYTE #" /> <statusCode code=" completed" /> <effectiveTime value="627034264877" /> <value unit="k/cumm" xsi:type="PQ" value=& quot;2.2" /> <referenceRange> <observationRange& gt; <text>1.0-4.0</text> </ observationRange> </referenceRange> </observation&gt ; </component> <component> <observation moodCode=& quot;EVN" classCode="OBS"> <templateId root=" 2.16.840.1.297839.10.20.22.4.2" /> <id nullFlavor="NA& quot; /> <code codeSystem="local" code="LY&#37 ;" displayName="LYMPHOCYTE %" /> < statusCode code="completed" /> <effectiveTime value=& quot;417454925640" /> <value unit="%" xsi: type="PQ" value="18" /> <interpretationCode codeSystem="local" code="*" /> < referenceRange> <observationRange> <text> 20-30</text> </observationRange> </referenceRange > </observation> </component> <component> <observation moodCode="EVN" classCode="OBS"> <templateId root="2.16.840.1.423896.10.20.22.4.2" /> <id nullFlavor="NA"/> <code codeSystem=&quot ;local" code="MCH" displayName="MEAN CELL HGB" /> <statusCode code="completed" /> < effectiveTimevalue="695877594694" /> <value unit=" pg" xsi:type="PQ" value="28.0" /> < referenceRange> <observationRange> <text>27.0- 33.0</text> </observationRange> </ referenceRange> </observation> </component> < component> <observation moodCode="EVN" classCode=" OBS"> <templateId root="2.16.840.1.870292.10.20.22.4.2& quot; /> <id nullFlavor="NA" /> <code codeSystem="local" code="MCHC" displayName="MEAN CELL HGB CONCENTRATION" /> <statusCode code="completed&quot ; /> <effectiveTime value="880728163884" /> <value unit="g/dL" xsi:type="PQ" value="30.8&quot ; /> <interpretationCode codeSystem="local" code=" *" /> <referenceRange> <observationRange&gt ; <text>32.0-37.0</text> </ observationRange> </referenceRange> </observation> </component> <component> <observation moodCode=& quot;EVN" classCode="OBS"> <templateId root=" 2.16.840.1.443692.10.20.22.4.2" /> <id nullFlavor="NA& quot; /> <code codeSystem="local" code="MCV" displayName="MEAN CELL VOLUME" /> <statusCode code=& quot;completed" /> <effectiveTime value="205357378101& quot;/> <value unit="fl" xsi:type="PQ" value= "91.0" /> <referenceRange> < observationRange> <text>80.0-100.0</text> </observationRange> </referenceRange> </ observation> </component> <component> < observation moodCode="EVN" classCode="OBS"> < templateId root="2.16.840.1.390155.10.20.22.4.2" /> < id nullFlavor="NA" /> <code codeSystem="local&quot ; code="MO#" displayName="MONOCYTE #" /> < statusCode code="completed" /> <effectiveTime value=& quot;260109679100" /> <value unit="k/cumm" xsi: type="PQ" value="1.2" /> <interpretationCode codeSystem="local" code="*" /> < referenceRange> <observationRange> <text>0.1- 1.0</text> </observationRange> </ referenceRange> </observation> </component> < component> <observation moodCode="EVN" classCode=" OBS"> <templateId root="2.16.840.1.320801.10.20.22.4.2& quot; /> <id nullFlavor="NA" /> <code codeSystem="local" code="MO%" displayName=" MONOCYTE %" /> <statusCode code="completed&quot ; /> <effectiveTime value="410364532176" /> <value unit="%" xsi:type="PQ" value="9& quot; /> <interpretationCode codeSystem="local" code=& quot;*" /> <referenceRange> < observationRange> <text>4-6</text> </ observationRange> </referenceRange> </observation> & lt;/component> <component> <observation moodCode=" EVN" classCode="OBS"> <templateId root=" 2.16.840.1.435204.10.20.22.4.2" /> <id nullFlavor="NA& quot; /> <code codeSystem="local" code="RBC" displayName="RED BLOOD CELL" /> <statusCode code=" completed" /> <effectiveTime value="422965219301" /> <value unit="m/cumm" xsi:type="PQ"value=& quot;3.57" /> <interpretationCode codeSystem="local& quot; code="*" /> <referenceRange> < observationRange> <text>4.00-6.00</text> </observationRange> </referenceRange> </observation& gt; </component> <component> <observation moodCode="EVN" classCode="OBS"> <templateId root="2.16.840.1.428832.10.20.22.4.2" /> <id nullFlavor ="NA" /> <code codeSystem="local" code=" RDW" displayName="RED CELL DISTRIBUTION WIDTH" /> < statusCode code="completed" /> <effectiveTime value=& quot;170376746635" /> <value unit="%" xsi: type="PQ" value="16.2" /> < interpretationCode codeSystem="local" code="*" /> <referenceRange> <observationRange> < text>11.0-15.6</text> </observationRange> &lt ;/referenceRange> </observation> </component> & lt;component> <observation moodCode="EVN" classCode=&quot ;OBS"> <templateId root="2.16.840.1.466325.10.20.22.4.2 " /> <id nullFlavor="NA" /> <code codeSystem="local" code="WBC" displayName="WHITE BLOOD CELL" /> <statusCodecode="completed" /> <effectiveTime value="226645125766" /> <value unit=& quot;k/cumm" xsi:type="PQ" value="12.5" />< interpretationCode codeSystem="local" code="*" /> <referenceRange> <observationRange> < text>5.0-10.0</text> </observationRange> </ referenceRange> </observation> </component> < component> <observation moodCode="EVN" classCode=" OBS"> <templateId root="2.16.840.1.468630.10.20.22.4.2& quot; /> <id nullFlavor="NA" /> <code codeSystem="local" code="HGBT" displayName="HEMOGLOBIN& quot; /> <statusCode code="completed" /> & lt;effectiveTime value="532013808464" /> <value unit=& quot;gm/dL" xsi:type="PQ" value="10.0" /> & lt;interpretationCode codeSystem="local" code="*" /> <referenceRange> <observationRange> & lt;text>12.0-16.0</text> </observationRange> </ referenceRange> </observation> </component> < component> <observation moodCode="EVN" classCode=" OBS"> <templateId root="2.16.840.1.581845.10.20.22.4.2& quot; /> <id nullFlavor="NA" /> <code codeSystem="local" code="HCTT" displayName="HEMATOCRIT& quot; /> <statusCode code="completed" /> & lt;effectiveTime value="433513652284" /> <value unit=& quot;%" xsi:type="PQ" value="32.5" /> <interpretationCode codeSystem="local" code="*" /&gt ; <referenceRange> <observationRange> <text>37.0-47.0</text> </observationRange> </referenceRange> </observation> </component&gt ; <component> <observation moodCode="EVN" classCode="OBS"> <templateId root=" [id number]" /> <id nullFlavor="NA& quot; /> <code codeSystem="local" code="PLTT&quot ; displayName="PLATELET COUNT" /> <statusCode code=& quot;completed" /> <effectiveTime value="[id number]& quot; /> <value unit="k/cumm" xsi:type="PQ" value="307" /> <referenceRange> < observationRange> <text>150-450</text> & lt;/observationRange> </referenceRange> </ observation> </component> </organizer> </entry> & lt;entry> <organizer moodCode="EVN" classCode="BATTERY& quot;> <templateId root="2.16.840.1.672835.10.20.22.4.1" /& gt; <id nullFlavor="NA" /> <code codeSystem=" local" code="GHGLUMON" displayName="GLUCOSE (POC)" /&gt ; <statusCode code="completed" /> <component> <observation moodCode="EVN" classCode="OBS"> <templateId root="2.16.840.1.541144.10.20.22.4.2" /> <id nullFlavor="NA" /> <code codeSystem=" local" code="GHGLUMON" displayName="GLUCOSE (POC)" /&gt ; <statusCode code="completed" /> < effectiveTime value="375432905134"/> <value unit=" mg/dL" xsi:type="PQ" value="110" /> < interpretationCode codeSystem="local" code="*" /> <referenceRange> <observationRange> < text>70-99</text> </observationRange> </ referenceRange> </observation> </component> </ organizer> </entry> <entry> <organizer moodCode="EVN " classCode="BATTERY"> <templateId root=" 2.840.1.156766.10.20.22.4.1" /> <id nullFlavor="NA&quot ; /> <code codeSystem="local" code="GHGLUMON" displayName="GLUCOSE (POC)" /> <statusCode code=" completed" /> <component> <observation moodCode=& quot;EVN" classCode="OBS"> <templateId root=" 2.16.840.1.218654.10.20.22.4.2" /> <id nullFlavor="NA& quot; /> <code codeSystem="local" code="GHGLUMON& quot; displayName="GLUCOSE (POC)" /> <statusCode code=& quot;completed" /> <effectiveTime value="959301719668& quot; /> <value unit="mg/dL" xsi:type="PQ" value="110" /> <interpretationCode codeSystem=" local" code="*" /> <referenceRange> < observationRange> <text>70-99</text> < /observationRange> </referenceRange> </observation& gt; </component> </organizer> </entry> <entry&gt ; <organizer moodCode="EVN" classCode="BATTERY"> <templateId root="2.16.840.1.742501.10.20.22.4.1" /> <id nullFlavor="NA" /> <code codeSystem="local" code= "GHGLUMON" displayName="GLUCOSE (POC)" /> < statusCode code="completed" /> <component> < observation moodCode="EVN" classCode="OBS"> < templateId root="2.16.840.1.057392.10.20.22.4.2" /> < id nullFlavor="NA" /> <code codeSystem="local&quot ; code="GHGLUMON" displayName="GLUCOSE (POC)" /> <statusCode code="completed" /> <effectiveTime value="988778218192" /> <value unit="mg/dL" xsi:type="PQ" value="143" /> < interpretationCode codeSystem="local" code="*" /> <referenceRange> <observationRange> < text>70-99</text> </observationRange> </ referenceRange> </observation> </component> </ organizer> </entry> <entry> <organizer moodCode="EVN " classCode="BATTERY"> <templateId root=" 2.16.840.1.363708.10.20.22.4.1" /> <id nullFlavor="NA&quot ; /> <code codeSystem="local" code="GHGLUMON" displayName="GLUCOSE (POC)" /> <statusCode code=" completed" /> <component> <observation moodCode=& quot;EVN" classCode="OBS"> <templateId root=" 2.16.840.1.025779.10.20.22.4.2" /> <id nullFlavor="NA& quot; /> <code codeSystem="local" code="GHGLUMON& quot; displayName="GLUCOSE (POC)" /> <statusCode code=& quot;completed" /> <effectiveTime value="987111951194& quot; /> <value unit="mg/dL" xsi:type="PQ" value="143" /> <interpretationCode codeSystem=" local" code="*" /> <referenceRange> <observationRange> <text>70-99</text> </ observationRange> </referenceRange> </observation&gt ; </component> </organizer> </entry> <entry> <organizer moodCode="EVN" classCode="BATTERY"> <templateId root="2.16.840.1.473392.10.20.22.4.1" /> < id nullFlavor="NA" /> <code codeSystem="local" code= "BNP" displayName="B-TYPE NATRIURETIC PEPTIDE" /> & lt;statusCode code="completed" /> <component>< observation moodCode="EVN" classCode="OBS"> < templateId root="2.16.840.1.205240.10.20.22.4.2" /> < id nullFlavor="NA" /> <code codeSystem="local" code ="BNP" displayName="B-TYPE NATRIURETIC PEPTIDE" /> <statusCode code="completed" /> <effectiveTime value="471499890048" /> <value unit="pg/mL" xsi:type="PQ" value="27" /> <referenceRange& gt; <observationRange> <text>< 100</ text> </observationRange> </referenceRange> </observation> </component> </organizer> </ entry> <entry> <organizer moodCode="EVN" classCode=& quot;BATTERY"> <templateId root="2.16.840.1.304220.10.20.22.4.1 " /> <id nullFlavor="NA" /> <code codeSystem="local" code="CBC" displayName="CBC" /& gt; <statusCode code="completed" /> <component> <observation moodCode="EVN" classCode="OBS"> <templateId root="2.16.840.1.960958.10.20.22.4.2" /> <id nullFlavor="NA" /> <code codeSystem=& quot;local" code="MCH" displayName="MEAN CELL HGB" /&gt ; <statusCode code="completed" /> < effectiveTime value="932811711647" /> <value unit=&quot ;pg" xsi:type="PQ" value="28.2" /> < referenceRange> <observationRange> <text> 27.0-33.0</text> </observationRange> </ referenceRange> </observation> </component> < component> <observation moodCode="EVN" classCode=" OBS"> <templateId root="2.16.840.1.148286.10.20.22.4.2& quot; /> <id nullFlavor="NA" /> <code codeSystem="local" code="MCHC" displayName="MEAN CELL HGB CONCENTRATION" /> <statusCode code="completed" /&gt ; <effectiveTime value="114579905227" /> < value unit="g/dL" xsi:type="PQ" value="31.8" /&gt ; <interpretationCode codeSystem="local" code="*&quot ; /> <referenceRange> <observationRange> <text>32.0-37.0</text> </observationRange> </referenceRange> </observation> </component&gt ; <component> <observation moodCode="EVN" classCode="OBS"> <templateId root=" 2.16.840.1.216441.10.20.22.4.2" /> <id nullFlavor="NA& quot; /> <code codeSystem="local" code="MCV" displayName="MEAN CELL VOLUME" /> <statusCode code=& quot;completed" /> <effectiveTime value="012110814740& quot; /> <value unit="fl" xsi:type="PQ" value ="88.4" /> <referenceRange> < observationRange> <text>80.0-100.0</text> </ observationRange> </referenceRange> </observation&gt ; </component> <component> <observation moodCode ="EVN" classCode="OBS"> <templateId root=& quot;2.16.840.1.617109.10.20.22.4.2" /> <id nullFlavor="NA&quot ; /> <code codeSystem="local" code="RBC" displayName="RED BLOOD CELL" /> <statusCode code=" completed" /> <effectiveTime value="304234673715" /> <value unit="m/cumm" xsi:type="PQ" value=& quot;3.80" /> <interpretationCode codeSystem="local& quot; code="*" /> <referenceRange> < observationRange> <text>4.00-6.00</text> </observationRange> </referenceRange> </ observation> </component> <component> < observation moodCode="EVN" classCode="OBS"> < templateId root="2.16.840.1.983418.10.20.22.4.2" /> < id nullFlavor="NA" /> <code codeSystem="local&quot ; code="RDW" displayName="RED CELL DISTRIBUTION WIDTH" /&gt ; <statusCode code="completed" /> <effectiveTime value="029857170847" /> <value unit="%& quot; xsi:type="PQ" value="16.3" /> < interpretationCode codeSystem="local" code="*" /> <referenceRange> <observationRange> < text>11.0-15.6</text> </observationRange> </ referenceRange> </observation> </component> < component> <observation moodCode="EVN" classCode="OBS& quot;> <templateIdroot="2.16.840.1.760231.10.20.22.4.2&quot ; /> <id nullFlavor="NA" /> <code codeSystem="local" code="WBC" displayName="WHITE BLOOD CELL" /> <statusCode code="completed" /> <effectiveTime value="901011118453" /> <value unit="k/cumm" xsi:type="PQ" value="10.4" /> <interpretationCode codeSystem="local" code="*" /& gt; <referenceRange> <observationRange> <text>5.0-10.0</text> </observationRange> </referenceRange> </observation> </component> <component> <observation moodCode="EVN" classCode="OBS"> <templateId root=" 2.16.840.1.494612.10.20.22.4.2" /> <id nullFlavor="NA& quot; /> <code codeSystem="local" code="HGBT&quot ; displayName="HEMOGLOBIN" /> <statusCode code=" completed" /> <effectiveTime value="476599589888" /> <value unit="gm/dL" xsi:type="PQ" value=& quot;10.7" /> <interpretationCode codeSystem="local" code="*" /> <referenceRange> < observationRange> <text>12.0-16.0</text> < /observationRange> </referenceRange> </observation& gt; </component> <component> <observation moodCode="EVN" classCode="OBS"> <templateId root="2.16.840.1.410101.10.20.22.4.2" /> <id nullFlavor=&quot ;NA" /> <code codeSystem="local" code="HCTT& quot; displayName="HEMATOCRIT" /> <statusCode code=& quot;completed" /> <effectiveTime value="576209155838& quot; /> <value unit="%" xsi:type="PQ&quot ; value="33.6" /> <interpretationCode codeSystem=" local" code="*" /> <referenceRange> <observationRange> <text>37.0-47.0</text> </observationRange> </referenceRange> </ observation> </component> <component> < observation moodCode="EVN" classCode="OBS"> < templateId root="2.16.840.1.418713.10.20.22.4.2" /> < id nullFlavor="NA" /> <code codeSystem="local&quot ; code="PLTT" displayName="PLATELET COUNT" /> & lt;statusCode code="completed" /> <effectiveTime value= "497537445175" /> <value unit="k/cumm" xsi: type="PQ" value="293" /> <referenceRange> <observationRange> <text>150-450</text& gt; </observationRange></referenceRange> </ observation> </component> </organizer> </entry> & lt;entry> <organizer moodCode="EVN" classCode="BATTERY& quot;> <templateId root="2.16.840.1.476217.10.20.22.4.1" /& gt; <id nullFlavor="NA" /> <code codeSystem=" local" code="PT" displayName="PROTHROMBIN TIME WITH INR&quot ; /> <statusCode code="completed" /> <component& gt; <observation moodCode="EVN" classCode="OBS"&gt ; <templateId root="2.16.840.1.834207.10.20.22.4.2" /> <id nullFlavor="NA" /> <code codeSystem=& quot;local" code="INRX" displayName="INTERNATIONAL NORMAL RATIO" /> <statusCode code="completed" /> & lt;effectiveTime value="127086200770" /> <value unit=& quot;" xsi:type="PQ" value="1.2" /> < interpretationCode codeSystem="local" code="*" /> <referenceRange> <observationRange> < text>0.9-1.1</text> </observationRange> </ referenceRange> </observation> </component> < component> <observation moodCode="EVN" classCode=" OBS"> <templateId root="2.16.840.1.807818.10.20.22.4.2& quot; /> <id nullFlavor="NA" /><code codeSystem=& quot;local" code="PTPAT" displayName="PROTHROMBIN TIME&quot ; /> <statusCode code="completed" /> < effectiveTime value="280855960717" /> <value unit=&quot ;sec" xsi:type="PQ" value="13.2" /> < interpretationCode codeSystem="local" code="*" /> <referenceRange> <observationRange> < text>10.0-12.8</text> </observationRange> &lt ;/referenceRange> </observation> </component> < /organizer> </entry> <entry> <organizer moodCode=" EVN" classCode="BATTERY"> <templateId root=" 2.16.840.1.597466.10.20.22.4.1" /> <id nullFlavor="NA&quot ; /> <code codeSystem="local" code="PTT" displayName="PARTIAL THROMBOPLASTIN TIME" /> <statusCode code="completed" /> <component> <observation moodCode="EVN" classCode="OBS"> <templateId root="2.16.840.1.014782.10.20.22.4.2" /> <id nullFlavor ="NA" /> <codecodeSystem="local" code=" PTT" displayName="PARTIAL THROMBOPLASTIN TIME" /> &lt ;statusCode code="completed" /> <effectiveTime value=& quot;171347961636" /> <value unit="sec" xsi:type=& quot;PQ" value="26" /> <referenceRange> <observationRange> <text>25-37</text> </observationRange> </referenceRange> </ observation> </component> </organizer> </entry> & lt;entry> <organizer moodCode="EVN" classCode="BATTERY& quot;> <templateId root="2.16.840.1.615357.10.20.22.4.1" /& gt; <id nullFlavor="NA" /> <code codeSystem=" local" code="METABC" displayName="METABOLIC PANEL, COMPREHN& quot; /> <statusCode code="completed" /> < component> <observation moodCode="EVN" classCode=" OBS"> <templateId root="2.16.840.1.949948.10.20.22.4.2& quot; /> <id nullFlavor="NA" /> <code codeSystem= "local" code="K" displayName="POTASSIUM" /> <statusCode code="completed" /> <effectiveTime value="879507208204" /> <value unit="mmol/L" xsi:type="PQ" value="4.3" /> <referenceRange& gt; <observationRange> <text>3.5-5.3</ text> </observationRange> </referenceRange>& lt;/observation> </component> <component> < observation moodCode="EVN" classCode="OBS"> < templateId root="2.16.840.1.436817.10.20.22.4.2" /> < id nullFlavor="NA" /> <code codeSystem="local&quot ; code="eGFR" displayName="EST GFR (MDRD)" /> & lt;statusCode code="completed" /> <effectiveTime value= "833849182333" /> <value unit="mL/min" xsi: type="PQ" value="40" /> <interpretationCode codeSystem="local" code="*" /> < referenceRange> <observationRange> <text> > 59</text> </observationRange> </ referenceRange> </observation> </component> < component> <observation moodCode="EVN" classCode=" OBS"> <templateId root="2.16.840.1.881155.10.20.22.4.2& quot; /> <id nullFlavor="NA" /> <code codeSystem="local" code="GAP" displayName="ANION GAP& quot; /> <statusCode code="completed"/> &lt ;effectiveTime value="037813005251" /> <value unit=& quot;mmol/L" xsi:type="PQ" value="7" /> &lt ;referenceRange> <observationRange> <text>5-15&lt ;/text> </observationRange> </referenceRange&gt ; </observation> </component> <component> <observation moodCode="EVN" classCode="OBS"> < templateId root="2.16.840.1.982351.10.20.22.4.2" /> < id nullFlavor="NA" /> <code codeSystem="local&quot ; code="eCrCl" displayName="EST CrCl (CG)" /> & lt;statusCode code="completed" /> <effectiveTime value= "681944101816" /> <value unit="mL/min" xsi: type="PQ" value="56" /> <interpretationCode codeSystem="local" code="*" /> < referenceRange> <observationRange> <text>& gt; 59</text> </observationRange> </ referenceRange> </observation> </component> < component> <observation moodCode="EVN" classCode=" OBS"> <templateId root="2.16.840.1.175794.10.20.22.4.2& quot; /> <id nullFlavor="NA" /> <code codeSystem="local" code="GLU" displayName="GLUCOSE&quot ; /> <statusCode code="completed" /> < effectiveTime value="347688139451" /> <value unit=&quot ;mg/dL" xsi:type="PQ" value="148" /> < interpretationCode codeSystem="local" code="*" /> < referenceRange> <observationRange> <text> 70-99</text> </observationRange> </ referenceRange> </observation> </component> < component> <observation moodCode="EVN" classCode=" OBS"> <templateId root="2.16.840.1.032317.10.20.22.4.2& quot; /> <id nullFlavor="NA" /> <code codeSystem="local" code="CA" displayName="CALCIUM&quot ; /> <statusCode code="completed" /> < effectiveTime value="644035867709" /> <value unit=&quot ;mg/dL" xsi:type="PQ" value="9.7" /> < referenceRange> <observationRange> <text>8.5 -10.1</text> </observationRange> </ referenceRange> </observation> </component> < component> <observation moodCode="EVN" classCode=" OBS"> <templateId root="2.16.840.1.229424.10.20.22.4.2& quot; /> <id nullFlavor="NA" /> <code codeSystem="local" code="BUN" displayName="BLOOD UREA NITROGEN" /> <statusCode code="completed" /> <effectiveTime value="905721091772" /> <value unit="mg/dL" xsi:type="PQ" value="51" /> <interpretationCode codeSystem="local" code="*" /&gt ; <referenceRange> <observationRange> <text>7-20</text> </observationRange> </referenceRange> </observation> </component> <component><observation moodCode="EVN" classCode="OBS& quot;> <templateId root="2.16.840.1.443582.10.20.22.4.2&quot ; /> <id nullFlavor="NA" /> <code codeSystem=& quot;local" code="CREAT" displayName="CREATININE" /&gt ; <statusCode code="completed" /> < effectiveTime value="813466057387" /> <value unit=&quot ;mg/dL" xsi:type="PQ" value="1.3" /> < interpretationCode codeSystem="local" code="*" /> <referenceRange> <observationRange> < text>0.6-1.0</text> </observationRange> </ referenceRange> </observation> </component> < component> <observation moodCode="EVN" classCode=" OBS"> <templateId root="2.16.840.1.084101.10..22.4.2& quot; /> <id nullFlavor="NA" /> <code codeSystem="local" code="NA" displayName="SODIUM" /> <statusCode code="completed" /> < effectiveTime value="985115696796" /> <value unit=&quot ;mmol/L" xsi:type="PQ" value="136" /> < referenceRange> <observationRange> <text> 135-148</text> </observationRange> </referenceRange&gt ; </observation> </component> <component> <observation moodCode="EVN" classCode="OBS"> <templateId root="2.16.840.1.787324.10.20.22.4.2" /> <id nullFlavor="NA" /> <code codeSystem=" local" code="CL" displayName="CHLORIDE" /> <statusCode code="completed" /> <effectiveTime value=& quot;642466256296" /> <value unit="mmol/L" xsi: type="PQ" value="100" /> <referenceRange> <observationRange> <text>98-110</text&gt ; </observationRange> </referenceRange> & lt;/observation> </component> <component> < observation moodCode="EVN" classCode="OBS"> < templateId root="2.16.840.1.789721.10.20.22.4.2" /> < id nullFlavor="NA" /> <code codeSystem="local&quot ; code="AST" displayName="AST/SGOT" /> < statusCode code="completed" /> <effectiveTime value=& quot;119223714108" /> <value unit="Units/L" xsi: type="PQ" value="13" /> <referenceRange> <observationRange> <text>10-37</text> </observationRange> </referenceRange> &lt ;/observation> </component> <component> < observation moodCode="EVN" classCode="OBS"> < templateId root="2.16.840.1.798809.10..22.4.2" /> < id nullFlavor="NA" /> <code codeSystem="local&quot ; code="ALT" displayName="ALT/SGPT" /> <statusCode code="completed" /> <effectiveTime value=" 137222967017" /> <value unit="Units/L" xsi:type=& quot;PQ" value="28" /> <referenceRange> <observationRange> <text>< 66</text> </observationRange> </referenceRange> </ observation> </component> <component> < observation moodCode="EVN" classCode="OBS"> < templateId root="2.16.840.1.333177.10..22.4.2" /> < id nullFlavor="NA" /> <code codeSystem="local&quot ; code="CO2" displayName="CARBON DIOXIDE" /> &lt ;statusCode code="completed" /> <effectiveTime value=& quot;460192671203" /> <value unit="mmol/L" xsi: type="PQ" value="29" /> <referenceRange> <observationRange> <text>21-32</text> </observationRange> </referenceRange> </ observation> </component> <component> < observation moodCode="EVN" classCode="OBS"> < templateId root="2.16.840.1.888867.10..22.4.2" /> < id nullFlavor="NA" /> <code codeSystem="local&quot ; code="TP" displayName="TOTAL PROTEIN" /> < statusCode code="completed" /> <effectiveTime value=& quot;082010103253" /> <value unit="gm/dL" xsi:type ="PQ" value="7.1" /> <referenceRange> <observationRange> <text>6.4-8.2</text> </observationRange> </referenceRange> &lt ;/observation> </component> <component> < observation moodCode="EVN" classCode="OBS"> < templateId root="2.16.840.1.061534.10..22.4.2" /> < id nullFlavor="NA" /> <code codeSystem="local&quot ; code="ALB" displayName="ALBUMIN" /> < statusCode code="completed" /> <effectiveTime value=" 809367234041" /> <value unit="gm/dL"xsi:type=&quot ;PQ" value="3.3" /> <interpretationCode codeSystem ="local" code="*" /> <referenceRange> <observationRange> <text>3.4-5.0</text> </observationRange> </referenceRange> &lt ;/observation> </component> <component><observation moodCode="EVN" classCode="OBS"> <templateId root="2.16.840.1.607901.10.20.22.4.2" /> <id nullFlavor ="NA" /> <code codeSystem="local" code="BILTOT " displayName="BILI TOTAL"/> <statusCode code=& quot;completed" /> <effectiveTime value="541077615921& quot; /> <value unit="mg/dL" xsi:type="PQ" value="0.4" /> <referenceRange> < observationRange> <text>0.0-1.0</text> & lt;/observationRange> </referenceRange> </ observation> </component> <component> < observation moodCode="EVN" classCode="OBS"> < templateId root="2.16.840.1.479447.10.20.22.4.2" /> < id nullFlavor="NA" /> <code codeSystem="local&quot ; code="ALKP" displayName="ALKALINE PHOSPHATASE TOTAL" /&gt ; <statusCode code="completed" /> < effectiveTime value="752977425243" /> <value unit=&quot ;IU/L" xsi:type="PQ" value="39" /> < interpretationCode codeSystem="local" code="*" /> & lt;referenceRange> <observationRange> <text& gt;45-117</text> </observationRange> </ referenceRange> </observation> </component> </ organizer> </entry> <entry> <organizermoodCode="EVN& quot; classCode="BATTERY"> <templateId root=" 2.16.840.1.924919.10.20.22.4.1" /> <id nullFlavor="NA&quot ; /> <code codeSystem="local" code="MAG" displayName="MAGNESIUM" /> <statusCode code="completed " /> <component> <observation moodCode="EVN& quot; classCode="OBS"> <templateId root=" 2.16.840.1.022705.10.20.22.4.2" /> <id nullFlavor="NA& quot; /> <code codeSystem="local" code="MAG" displayName="MAGNESIUM" /> <statusCode code=" completed" /> <effectiveTime value="668568730956" /> <value unit="mg/dL" xsi:type="PQ" value=& quot;1.9" /> <referenceRange> < observationRange> <text>1.8-2.4</text> & lt;/observationRange> </referenceRange> </ observation> </component> </organizer> </entry> & lt;entry> <organizer moodCode="EVN" classCode="BATTERY& quot;> <templateId root="2.16.840.1.969508.10.20.22.4.1" /& gt; <id nullFlavor="NA" /> <code codeSystem=" local" code="TSH" displayName="THYROID STIM HORMONE (TSH)& quot; /> <statusCode code="completed" /> < component> <observation moodCode="EVN" classCode=" OBS"> <templateId root="2.16.840.1.145333.10.20.22.4.2& quot; /> <id nullFlavor="NA" /> <code codeSystem="local" code="TSH" displayName="THYROID STIM HORMONE (TSH)" /> <statusCode code="completed&quot ; /> <effectiveTime value="664855002313" /> < value unit="uIU/mL" xsi:type="PQ" value="0.87" /& gt; <referenceRange> <observationRange> <text>0.34-4.82</text> </observationRange> </referenceRange> </observation> </component& gt; </organizer> </entry> <entry> <organizer moodCode="EVN" classCode="BATTERY"> <templateId root="2.16.840.1.641420.10.20.22.4.1" /> <id nullFlavor=& quot;NA" /> <code codeSystem="local" code="BNP& quot; displayName="B-TYPE NATRIURETIC PEPTIDE" /> < statusCode code="completed" /> <component> < observation moodCode="EVN" classCode="OBS"> < templateId root="2.16.840.1.335489.10.20.22.4.2" /> < id nullFlavor="NA" /> <code codeSystem="local&quot ; code="BNP" displayName="B-TYPE NATRIURETIC PEPTIDE" /> <statusCode code="completed" /> < effectiveTime value="057812470853" /> <value unit=&quot ;pg/mL" xsi:type="PQ" value="27" /> < referenceRange> <observationRange> <text> < 100</text> </observationRange> </ referenceRange> </observation> </component> </ organizer> </entry> <entry> <organizer moodCode="EVN " classCode="BATTERY"> <templateId root=" 2.16.840.1.634496.10.20.22.4.1" /> <id nullFlavor="NA&quot ; /> <code codeSystem="local" code="CBC" displayName="CBC" /> <statusCode code="completed&quot ; /> <component> <observation moodCode="EVN" classCode="OBS"> <templateId root=" 2.16.840.1.534844.10.20.22.4.2" /> <id nullFlavor="NA& quot; /> <code codeSystem="local" code="MCH" displayName="MEAN CELL HGB" /> <statusCode code=" completed" /> <effectiveTime value="405525999346" /> <value unit="pg" xsi:type="PQ" value=&quot ;28.2" /> <referenceRange> < observationRange> <text>27.0-33.0</text> </ observationRange> </referenceRange> </observation&gt ; </component> <component> <observation moodCode ="EVN" classCode="OBS"> <templateId root=& quot;2.16.840.1.197421.10.20.22.4.2" /> <id nullFlavor="NA& quot; /> <code codeSystem="local" code="[facility]CHC&quot ; displayName="MEAN CELL HGB CONCENTRATION" /> < statusCode code="completed" /> <effectiveTime value=& quot;709190438834" /> <value unit="g/dL" xsi:type= "PQ" value="31.8" /> <interpretationCode codeSystem="local" code="*" /> < referenceRange> <observationRange> <text>32.0 -37.0</text> </observationRange> </ referenceRange> </observation> </component> < component> <observation moodCode="EVN" classCode=" OBS"> <templateId root="2.16.840.1.978976.10.20.22.4.2& quot; /> <id nullFlavor="NA" /> <code codeSystem="local" code="MCV" displayName="MEAN CELL VOLUME" /> <statusCode code="completed" /> <effectiveTime value="054502884408" /> <value unit=& quot;fl" xsi:type="PQ" value="88.4" /> < referenceRange> <observationRange> <text> 80.0-100.0</text> </observationRange> </ referenceRange> </observation> </component> < component> <observation moodCode="EVN" classCode=" OBS"> <templateId root="[id number]& quot; /> <id nullFlavor="NA" /> <code codeSystem="local" code="RBC" displayName="RED BLOOD CELL" /> <statusCode code="completed" /> <effectiveTime value="[id number]" /> <value unit="m/cumm" xsi:type="PQ" value="3.80" /> <interpretationCode codeSystem="local" code="*" /& gt; <referenceRange> <observationRange> < text>4.00-6.00</text> </observationRange> &lt ;/referenceRange> </observation> </component> & lt;component> <observation moodCode="EVN" classCode=&quot ;OBS"> <templateId root="2.16.840.1.009721.10.20.22.4.2 " /> <id nullFlavor="NA" /> <code codeSystem="local" code="RDW" displayName="RED CELL DISTRIBUTION WIDTH" /> <statusCode code="completed&quot ; /> <effectiveTime value="861742760109" /> <value unit="%" xsi:type="PQ" value="16.3& quot; /> <interpretationCode codeSystem="local" code=& quot;*" /> <referenceRange> < observationRange> <text>11.0-15.6</text> </observationRange> </referenceRange> </observation&gt ; </component> <component> <observation moodCode ="EVN" classCode="OBS"> <templateId root=& quot;2.16.840.1.897452.10.20.22.4.2" /> <id nullFlavor=&quot ;NA" /> <code codeSystem="local" code="WBC& quot; displayName="WHITE BLOOD CELL" /> <statusCode code="completed" /> <effectiveTime value=" 923166035638"/> <value unit="k/cumm" xsi:type=& quot;PQ" value="10.4" /> <interpretationCode codeSystem="local" code="*" /> < referenceRange> <observationRange> <text> 5.0-10.0</text> </observationRange> </ referenceRange> </observation> </component> < component> <observation moodCode="EVN" classCode=" OBS"> <templateId root="2.16.840.1.647104.10.20.22.4.2& quot; /> <id nullFlavor="NA" /> <code codeSystem="local" code="HGBT" displayName="HEMOGLOBIN& quot; /> <statusCode code="completed" /> & lt;effectiveTime value="194291781136" /> <value unit=& quot;gm/dL" xsi:type="PQ" value="10.7" /> & lt;interpretationCodecodeSystem="local" code="*" /> <referenceRange> <observationRange> &lt ;text>12.0-16.0</text> </observationRange> & lt;/referenceRange> </observation> </component> <component> <observation moodCode="EVN" classCode=& quot;OBS"> <templateId root=" 2.16.840.1.013726.10.20.22.4.2" /> <id nullFlavor="NA& quot; /> <code codeSystem="local" code="HCTT&quot ; displayName="HEMATOCRIT" /> <statusCode code=" completed" /> <effectiveTime value="600719067471" /> <value unit="%" xsi:type="PQ" value="33.6" /> <interpretationCode codeSystem=" local" code="*" /> <referenceRange> <observationRange> <text>37.0-47.0</text> < /observationRange> </referenceRange> </observation& gt; </component> <component> <observation moodCode="EVN" classCode="OBS"> <templateId root="2.16.840.1.009773.10.20.22.4.2" /> <id nullFlavor ="NA" /> <code codeSystem="local" code=" PLTT" displayName="PLATELET COUNT" /> <statusCode code="completed" /> <effectiveTime value=" 121710531522" /> <value unit="k/cumm" xsi:type=& quot;PQ" value="293" /> <referenceRange> <observationRange> <text>150-450</text> </observationRange> </referenceRange> </ observation> </component> </organizer> </entry> & lt;entry> <organizer moodCode="EVN" classCode="BATTERY& quot;> <templateId root="2.16.840.1.079194.10.20.22.4.1" /& gt; <id nullFlavor="NA" /> <code codeSystem=" local" code="PT" displayName="PROTHROMBIN TIME WITH INR&quot ; /> <statusCode code="completed" /> <component& gt; <observation moodCode="EVN" classCode="OBS"&gt ; <templateId root="2.16.840.1.724101.10.20.22.4.2" /> <id nullFlavor="NA" /> <code codeSystem=& quot;local" code="INRX" displayName="INTERNATIONAL NORMAL RATIO" /> <statusCode code="completed" /> <effectiveTime value="746399669542" /> <value unit="" xsi:type="PQ" value="1.2" /> & lt;interpretationCode codeSystem="local" code="*" /> <referenceRange> <observationRange> & lt;text>0.9-1.1</text> </observationRange> & lt;/referenceRange> </observation> </component> <component> <observation moodCode="EVN" classCode=& quot;OBS"> <templateId root=" 2.16.840.1.299502.10.20.22.4.2" /> <id nullFlavor="NA& quot; /> <code codeSystem="local" code="PTPAT&quot ; displayName="PROTHROMBIN TIME" /> <statusCode code=& quot;completed" /> <effectiveTime value="056940753643& quot; /> <value unit="sec" xsi:type="PQ" value=& quot;13.2" /> <interpretationCode codeSystem="local& quot; code="*" /> <referenceRange> < observationRange> <text>10.0-12.8</text> </ observationRange> </referenceRange> </observation&gt ; </component> </organizer> </entry> <entry> <organizer moodCode="EVN" classCode="BATTERY"> <templateId root="2.16.840.1.989298.10.20.22.4.1" /> < id nullFlavor="NA" /> <code codeSystem="local" code="PTT" displayName="PARTIAL THROMBOPLASTIN TIME" /> <statusCode code="completed" /> <component> <observation moodCode="EVN" classCode="OBS"> <templateId root="2.16.840.1.241920.10.20.22.4.2"/> <id nullFlavor="NA" /> <code codeSystem=" local"code="PTT" displayName="PARTIAL THROMBOPLASTIN TIME& quot; /> <statusCode code="completed" /> & lt;effectiveTime value="505636838142" /> <value unit=&quot ;sec" xsi:type="PQ" value="26" /> < referenceRange> <observationRange> <text> 25-37</text> </observationRange> </ referenceRange> </observation> </component> </ organizer> </entry> <entry> <organizer moodCode="EVN " classCode="BATTERY"> <templateId root=" 2.16.840.1.924823.10.20.22.4.1" /> <id nullFlavor="NA&quot ; /> <code codeSystem="local" code="METABC" displayName="METABOLIC PANEL, COMPREHN" /> <statusCode code ="completed" /> <component> <observation moodCode="EVN" classCode="OBS"> <templateId root="2.16.840.1.229119.10.20.22.4.2" /> <id nullFlavor ="NA" /> <code codeSystem="local" code=" K" displayName="POTASSIUM" /> <statusCode code=& quot;completed" /> <effectiveTime value="889014047315& quot; /> <value unit="mmol/L" xsi:type="PQ" value="4.3" /> <referenceRange> < observationRange> <text>3.5-5.3</text> </ observationRange> </referenceRange> </observation&gt ; </component> <component> <observation moodCode ="EVN" classCode="OBS"> <templateId root=& quot;2.16.840.1.796023.10.20.22.4.2" /> <id nullFlavor="NA&quot ; /> <code codeSystem="local" code="eGFR" displayName="EST GFR (MDRD)" /> <statusCode code=" completed" /> <effectiveTime value="457424702253" /> <value unit="mL/min" xsi:type="PQ" value=& quot;40" /> <interpretationCode codeSystem="local&quot ; code="*" /> <referenceRange> < observationRange> <text>> 59</text> </observationRange> </referenceRange> </ observation> </component> <component> < observation moodCode="EVN" classCode="OBS"> < templateId root="2.16.840.1.227079.10.20.22.4.2" /> < id nullFlavor="NA" /> <code codeSystem="local&quot ; code="GAP" displayName="ANION GAP" /> < statusCode code="completed" /> <effectiveTime value=& quot;794394272453" /> <value unit="mmol/L" xsi: type="PQ" value="7" /> <referenceRange> <observationRange> <text>5-15</text> </observationRange> </referenceRange> </ observation> </component> <component> < observation moodCode="EVN" classCode="OBS"> < templateId root="2.16.840.1.623036.10.20.22.4.2" /> < id nullFlavor="NA" /> <code codeSystem="local&quot ; code="eCrCl" displayName="EST CrCl (CG)" /> & lt;statusCode code="completed" /> <effectiveTime value= "835517318469" /> <value unit="mL/min" xsi: type="PQ" value="56" /> <interpretationCode codeSystem="local" code="*" /> <referenceRange& gt; <observationRange> <text>>59</ text> </observationRange> </referenceRange> </observation> </component> <component> <observation moodCode="EVN" classCode="OBS"> <templateId root="2.16.840.1.180208.10.20.22.4.2" /> <id nullFlavor="NA" /> <code codeSystem=" local" code="GLU" displayName="GLUCOSE" /> <statusCode code="completed" /> <effectiveTime value ="628114962972" /> <value unit="mg/dL" xsi: type="PQ" value="148" /> <interpretationCode codeSystem="local" code="*" /> < referenceRange> <observationRange> <text>70-99 </text> </observationRange> </referenceRange& gt; </observation> </component> <component> <observation moodCode="EVN" classCode="OBS"> &lt ;templateId root="2.16.840.1.719601.10.20.22.4.2" /> < id nullFlavor="NA" /> <code codeSystem="local&quot ; code="CA" displayName="CALCIUM" /> < statusCode code="completed" /> <effectiveTime value=& quot;234586718500" /> <value unit="mg/dL" xsi:type ="PQ" value="9.7" /> <referenceRange> <observationRange> <text>8.5-10.1</text> </observationRange> </referenceRange> & lt;/observation> </component> <component> < observation moodCode="EVN" classCode="OBS"> < templateId root="2.16.840.1.967608.10.20.22.4.2" /> < id nullFlavor="NA" /> <code codeSystem="local" code="BUN" displayName="BLOOD UREA NITROGEN" /> <statusCode code="completed" /> <effectiveTime value ="925252215518" /> <value unit="mg/dL" xsi: type="PQ" value="51" /> <interpretationCode codeSystem="local" code="*" /> < referenceRange> <observationRange> <text> 7-20</text> </observationRange> </ referenceRange> </observation> </component> < component> <observation moodCode="EVN" classCode=" OBS"> <templateId root="2.16.840.1.896552.10.20.22.4.2& quot; /> <id nullFlavor="NA" /> <code codeSystem="local" code="CREAT" displayName="CREATININE " /> <statusCodecode="completed" /> & lt;effectiveTime value="331868129707" /> <value unit=" mg/dL" xsi:type="PQ" value="1.3" /> < interpretationCode codeSystem="local" code="*" /> <referenceRange> <observationRange> < text>0.6-1.0</text> </observationRange> </ referenceRange> </observation> </component> < component> <observation moodCode="EVN" classCode=" OBS"> <templateId root="2.16.840.1.024882.10..22.4.2& quot; /> <id nullFlavor="NA" /> <code codeSystem="local" code="NA" displayName="SODIUM" /> <statusCode code="completed" /> < effectiveTime value="423275712495" /> <value unit=&quot ;mmol/L" xsi:type="PQ" value="136" /> < referenceRange> <observationRange> <text> 135-148</text> </observationRange> </ referenceRange> </observation> </component> < component> <observation moodCode="EVN" classCode=" OBS"> <templateId root="2.16.840.1.983447.10.20.22.4.2& quot; /> <id nullFlavor="NA" /> <code codeSystem="local" code="CL" displayName="CHLORIDE&quot ; /> <statusCode code="completed" /> < effectiveTime value="564115766651" /> <value unit=&quot ;mmol/L" xsi:type="PQ" value="100" /> < referenceRange> <observationRange> <text>98-110& lt;/text> </observationRange> </referenceRange& gt; </observation> </component> <component> <observation moodCode="EVN" classCode="OBS"> <templateId root="2.16.840.1.883292.10.20.22.4.2" /> <id nullFlavor="NA" /> <code codeSystem=&quot ;local" code="AST" displayName="AST/SGOT" /> <statusCode code="completed" /> <effectiveTime value="817743965117" /> <value unit="Units/L&quot ; xsi:type="PQ" value="13" /> <referenceRange > <observationRange> <text>10-37</text > </observationRange> </referenceRange> </observation> </component> <component> & lt;observation moodCode="EVN" classCode="OBS"> & lt;templateId root="2.16.840.1.191423.10.20.22.4.2" /> &lt ;id nullFlavor="NA" /> <code codeSystem="local& quot; code="ALT" displayName="ALT/SGPT" /> < statusCode code="completed" /> <effectiveTime value=& quot;088182789830" /> <value unit="Units/L" xsi: type="PQ" value="28" /> <referenceRange> <observationRange> <text>< 66</ text> </observationRange> </referenceRange> </observation> </component> <component> & lt;observation moodCode="EVN" classCode="OBS"> & lt;templateId root="2.16.840.1.772737.10.20.22.4.2" /> <id nullFlavor="NA" /> <code codeSystem="local" code="CO2" displayName="CARBON DIOXIDE" /> < statusCode code="completed" /> <effectiveTime value=& quot;038339658258" /> <value unit="mmol/L" xsi: type="PQ" value="29" /> <referenceRange> <observationRange> <text>21-32</text> </observationRange> </referenceRange> < /observation> </component> <component> < observation moodCode="EVN" classCode="OBS"> < templateId root="2.16.840.1.968568.10.20.22.4.2" /> < id nullFlavor="NA" /> <code codeSystem="local&quot ; code="TP" displayName="TOTAL PROTEIN" /> < statusCode code="completed" /> <effectiveTime value=& quot;524694046833" /> <value unit="gm/dL" xsi:type ="PQ" value="7.1" /> <referenceRange> <observationRange> <text>6.4-8.2</text> </observationRange> </referenceRange> </ observation> </component> <component> < observation moodCode="EVN" classCode="OBS"> < templateId root="2.16.840.1.324528.10.20.22.4.2" /> < id nullFlavor="NA" /> <code codeSystem="local&quot ; code="ALB" displayName="ALBUMIN" /> < statusCode code="completed" /> <effectiveTime value=& quot;721004013511" /> <value unit="gm/dL" xsi:type ="PQ" value="3.3" /> <interpretationCode codeSystem="local" code="*" /> < referenceRange> <observationRange> <text> 3.4-5.0</text> </observationRange> </ referenceRange> </observation> </component> < component> <observation moodCode="EVN" classCode=" OBS"> <templateId root="2.16.840.1.493852.10.20.22.4.2& quot; /> <id nullFlavor="NA" /> <code codeSystem="local" code="BILTOT" displayName="BILI TOTAL" /> <statusCode code="completed" /> <effectiveTime value="321039289470" /> <value unit= "mg/dL" xsi:type="PQ" value="0.4" /> & lt;referenceRange> <observationRange> <text& gt;0.0-1.0</text> </observationRange> </ referenceRange> </observation> </component> < component> <observation moodCode="EVN" classCode=" OBS"> <templateId root="2.16.840.1.707818.10.20.22.4.2& quot; /> <id nullFlavor="NA" /> <code codeSystem="local" code="ALKP" displayName="ALKALINE PHOSPHATASE TOTAL" /> <statusCode code="completed&quot ; /> <effectiveTime value="614211998878" /> < value unit="IU/L" xsi:type="PQ" value="39" /> <interpretationCode codeSystem="local" code="*" /> <referenceRange> <observationRange> <text>45-117</text> </observationRange> </referenceRange> </observation> </component& gt; </organizer> </entry> <entry> <organizer moodCode="EVN" classCode="BATTERY"> <templateId root="2.16.840.1.809687.10.20.22.4.1" /> <id nullFlavor=& quot;NA" /> <code codeSystem="local" code="MAG& quot; displayName="MAGNESIUM" /> <statusCode code=" completed" /> <component> <observation moodCode=& quot;EVN" classCode="OBS"> <templateId root=" 2.16.840.1.149272.10..22.4.2" /> <id nullFlavor="NA& quot; /> <code codeSystem="local" code="MAG" displayName="MAGNESIUM" /> <statusCode code=" completed" /> <effectiveTime value="731462138281" /> <value unit="mg/dL" xsi:type="PQ" value=& quot;1.9" /> <referenceRange> < observationRange> <text>1.8-2.4</text> & lt;/observationRange> </referenceRange> </observation&gt ; </component> </organizer> </entry> <entry> <organizer moodCode="EVN" classCode="BATTERY"> <templateId root="2.16.840.1.410707.10.20.22.4.1" /> < id nullFlavor="NA" /> <code codeSystem="local" code="TSH" displayName="THYROID STIM HORMONE (TSH)" /> <statusCode code="completed" /> <component> & lt;observation moodCode="EVN" classCode="OBS"> < templateId root="2.16.840.1.693270.10..22.4.2" /> < id nullFlavor="NA" /> <code codeSystem="local&quot ; code="TSH" displayName="THYROID STIM HORMONE (TSH)" /> <statusCode code="completed" /> < effectiveTime value="985270620159" /> <value unit=&quot ;uIU/mL" xsi:type="PQ" value="0.87" /> < referenceRange> <observationRange> <text>0.34-4.82 </text> </observationRange> </referenceRange& gt; </observation> </component> </organizer> & lt;/entry> <entry> <organizer moodCode="EVN" classCode ="BATTERY"> <templateId root=" 2.16.840.1.153075.10.20.22.4.1" /> <id nullFlavor="NA" /& gt; <code codeSystem="local" code="GHGLUMON" displayName="GLUCOSE (POC)" /> <statusCode code=" completed" /> <component> <observation moodCode=& quot;EVN" classCode="OBS"> <templateId root=" 2.16.840.1.087054.10..22.4.2" /> <id nullFlavor="NA& quot; /> <code codeSystem="local" code="GHGLUMON& quot; displayName="GLUCOSE (POC)" /> <statusCode code=& quot;completed" /> <effectiveTime value="099492811107& quot; /> <value unit="mg/dL" xsi:type="PQ" value="158" /> <interpretationCode codeSystem=" local" code="*" /> <referenceRange> <observationRange> <text>70-99</text> </observationRange></referenceRange> </observation> </component> </organizer> </entry> <entry> & lt;organizer moodCode="EVN" classCode="BATTERY"> &lt ;templateId root="2.16.840.1.254290.10.20.22.4.1" /> <id nullFlavor="NA" /> <code codeSystem="local" code= "GHGLUMON" displayName="GLUCOSE (POC)" /> < statusCode code="completed" /> <component> < observation moodCode="EVN" classCode="OBS"> < templateId root="2.16.840.1.053712.10.20.22.4.2" /> < id nullFlavor="NA" /> <code codeSystem="local&quot ; code="GHGLUMON" displayName="GLUCOSE (POC)" /> <statusCode code="completed" /> <effectiveTime value="204072255612" /> <value unit="mg/dL" xsi:type="PQ" value="158" /> < interpretationCode codeSystem="local" code="*" /> <referenceRange> <observationRange> <text>70- 99</text> </observationRange> </ referenceRange> </observation> </component> </ organizer> </entry> <entry> <organizer moodCode="EVN " classCode="BATTERY"> <templateId root=" 2.16.840.1.943124.10.20.22.4.1" /> <id nullFlavor="NA&quot ; /> <code codeSystem="local" code="GHGLUMON" displayName="GLUCOSE (POC)" /> <statusCode code=" completed" /> <component> <observation moodCode=& quot;EVN" classCode="OBS"> <templateId root=" 2.16.840.1.897897.10.20.22.4.2" /> <id nullFlavor="NA& quot; /> <code codeSystem="local" code="GHGLUMON& quot; displayName="GLUCOSE (POC)" /> <statusCode code=& quot;completed" /> <effectiveTime value="144890584840& quot; /> <value unit="mg/dL" xsi:type="PQ" value="148" /> <interpretationCode codeSystem=" local" code="*" /> <referenceRange> <observationRange> <text>70-99</text> </observationRange> </referenceRange> </ observation> </component> </organizer> </entry> & lt;entry> <organizer moodCode="EVN" classCode="BATTERY& quot;> <templateId root="2.16.840.1.346032.10.20.22.4.1" /& gt; <id nullFlavor="NA" /> <code codeSystem=" local" code="GHGLUMON" displayName="GLUCOSE (POC)" /&gt ; <statusCode code="completed" /> <component> <observation moodCode="EVN" classCode="OBS"> <templateId root="2.16.840.1.969243.10.20.22.4.2" /> <id nullFlavor="NA" /> <code codeSystem=" local" code="GHGLUMON" displayName="GLUCOSE (POC)" /&gt ; <statusCode code="completed" /> < effectiveTime value="308217088855" /> <value unit=&quot ;mg/dL" xsi:type="PQ" value="148" /> < interpretationCode codeSystem="local" code="*" /> <referenceRange> <observationRange> < text>70-99</text> </observationRange> </ referenceRange> </observation> </component> </ organizer> </entry> <entry> <organizer moodCode="EVN " classCode="BATTERY"> <templateId root=" 2.16.840.1.834752.10.20.22.4.1" /> <id nullFlavor="NA&quot ; /> <code codeSystem="local"code="ABG" displayName="ARTERIAL BLOOD GAS" /> <statusCode code=" completed" /> <component> <observation moodCode=& quot;EVN" classCode="OBS"> <templateId root=" 2.16.840.1.549683.10.20.22.4.2" /> <id nullFlavor="NA& quot; /> <code codeSystem="local" code="TED" displayName="ABG BASE EXCESS" /> <statusCode code=&quot ;completed" /> <effectiveTime value="435057694634&quot ; /> <value unit="meq/L" xsi:type="PQ" value= "-4.2" /> <interpretationCode codeSystem="local& quot; code="*" /> <referenceRange> < observationRange> <text>-3.0-3.0</text> & lt;/observationRange> </referenceRange> </ observation> </component> <component> < observation moodCode="EVN" classCode="OBS"> < templateId root="2.16.840.1.864820.10.20.22.4.2" /> < id nullFlavor="NA" /> <code codeSystem="local&quot ; code="HCO3A" displayName="ABG BICARBONATE" /> <statusCode code="completed" /> <effectiveTime value ="294491149561" /> <value unit="meq/L" xsi: type="PQ" value="23.0" /> <referenceRange&gt ; <observationRange> <text>23.0-28.0</ text> </observationRange> </referenceRange> </observation> </component> <component> & lt;observation moodCode="EVN" classCode="OBS"> & lt;templateId root="2.16.840.1.148359.10.20.22.4.2" /> &lt ;id nullFlavor="NA" /> <code codeSystem="local& quot; code="PCO2A" displayName="ABG PCO2" /> &lt ;statusCode code="completed" /> <effectiveTime value=& quot;807342329518" /> <value unit="mmHg" xsi:type= "PQ" value="52" /> <interpretationCode codeSystem="local" code="*" /> < referenceRange> <observationRange> <text> 34-45</text> </observationRange> </ referenceRange> </observation> </component> < component> <observation moodCode="EVN" classCode=" OBS"> <templateId root="2.16.840.1.390320.10.20.22.4.2& quot; /> <id nullFlavor="NA" /> <code codeSystem="local" code="PHAX" displayName="ABG PH&quot ; /> <statusCode code="completed" /> < effectiveTime value="118541637100" /> <value unit="" xsi:type="PQ" value="7.27" /> < interpretationCode codeSystem="local" code="*" /> <referenceRange> <observationRange> <text >7.35-7.45</text> </observationRange> </ referenceRange> </observation> </component> < component> <observation moodCode="EVN" classCode=" OBS"> <templateId root="2.16.840.1.096617.10.20.22.4.2& quot; /> <id nullFlavor="NA" /> <code codeSystem="local" code="PO2A" displayName="ABG PO2& quot; /> <statusCode code="completed" /> & lt;effectiveTime value="571693322479" /> <value unit=& quot;mmHg" xsi:type="PQ" value="142" /> &lt ;interpretationCode codeSystem="local" code="*" /> <referenceRange> <observationRange> <text >75-100</text> </observationRange> </ referenceRange> </observation> </component> < component> <observation moodCode="EVN" classCode=" OBS"> <templateId root="2.16.840.1.563079.10.20.22.4.2& quot; /> <id nullFlavor="NA" /> <code codeSystem="local" code="SATA" displayName="ABG O2 SATURATION" /> <statusCode code="completed" /> <effectiveTime value="696281122918" /> < value unit="%" xsi:type="PQ" value="99" /& gt; <referenceRange> <observationRange> <text>93-100</text> </observationRange> </referenceRange> </observation> </component> </organizer> </entry> <entry> <organizer moodCode= "EVN" classCode="BATTERY"> <templateId root=&quot ;2.16.840.1.930088.10.20.22.4.1" /> <id nullFlavor="NA&quot ; /> <code codeSystem="local" code="ABG" displayName=& quot;ARTERIAL BLOOD GAS" /> <statusCode code="completed& quot; /> <component> <observation moodCode="EVN& quot; classCode="OBS"> <templateId root=" 2.16.840.1.999157.10.20.22.4.2" /> <id nullFlavor="NA& quot; /> <code codeSystem="local" code="TED" displayName="ABG BASE EXCESS" /> <statusCode code=" completed" /> <effectiveTime value="398148170082" /> <value unit="meq/L" xsi:type="PQ" value=& quot;-4.2" /> <interpretationCode codeSystem="local& quot; code="*" /> <referenceRange> < observationRange> <text>-3.0-3.0</text> & lt;/observationRange> </referenceRange> </ observation> </component> <component> < observation moodCode="EVN" classCode="OBS"> < templateId root="2.16.840.1.726404.10.20.22.4.2" /> < id nullFlavor="NA" /> <code codeSystem="local&quot ; code="HCO3A" displayName="ABG BICARBONATE" /> <statusCode code="completed" /> <effectiveTime value ="834142332928" /><value unit="meq/L" xsi:type=" PQ" value="23.0" /> <referenceRange> <observationRange> <text>23.0-28.0</text> </observationRange> </referenceRange> </ observation> </component> <component> < observation moodCode="EVN" classCode="OBS"> < templateId root="2.16.840.1.197670.10.20.22.4.2" /> <id nullFlavor="NA" /> <code codeSystem="local" code="PCO2A" displayName="ABG PCO2" /> < statusCode code="completed" /> <effectiveTime value=& quot;579532126574" /> <value unit="mmHg" xsi:type= "PQ" value="52" /> <interpretationCode codeSystem="local" code="*" /> < referenceRange> <observationRange> <text> 34-45</text> </observationRange> </referenceRange > </observation> </component> <component> <observation moodCode="EVN" classCode="OBS"> <templateId root="2.16.840.1.840799.10.20.22.4.2" /> <id nullFlavor="NA"/> <code codeSystem=&quot ;local" code="PHAX" displayName="ABG PH" /> <statusCode code="completed" /> <effectiveTime value="018270440324" /> <value unit="" xsi: type="PQ" value="7.27" /> < interpretationCode codeSystem="local" code="*" /> <referenceRange> <observationRange> < text>7.35-7.45</text> </observationRange> &lt ;/referenceRange> </observation> </component> & lt;component> <observation moodCode="EVN" classCode=&quot ;OBS"> <templateId root="2.16.840.1.337864.10.20.22.4.2 " /> <id nullFlavor="NA" /> <code codeSystem="local" code="PO2A" displayName="ABG PO2& quot; /> <statusCode code="completed" /> & lt;effectiveTime value="[id number]" /><value unit="mmHg& quot; xsi:type="PQ" value="142" /> < interpretationCode codeSystem="local" code="*" /> <referenceRange> <observationRange> < text>75-100</text> </observationRange> </ referenceRange> </observation> </component> < component> <observation moodCode="EVN" classCode=" OBS"> <templateId root="[id number]& quot; /> <id nullFlavor="NA" /> <code codeSystem="local" code="SATA" displayName="ABG O2 SATURATION" /> <statusCode code="completed" /> <effectiveTime value="[id number]" /> < value unit="%" xsi:type="PQ" value="99" /& gt; <referenceRange><observationRange> < text>93-100</text> </observationRange> </ referenceRange> </observation> </component> </ organizer> </entry> <entry> <organizer moodCode="EVN " classCode="BATTERY"> <templateId root=" 2.16.840.1.334370.10.20.22.4.1" /> <id nullFlavor="NA&quot ; /> <code codeSystem="local" code="METAB" displayName="METABOLIC PANEL, BASIC" /> <statusCode code=& quot;completed" /> <component> <observation moodCode="EVN" classCode="OBS"> <templateId root="2.16.840.1.158607.10.20.22.4.2" /> <id nullFlavor ="NA" /> <code codeSystem="local" code=" K" displayName="POTASSIUM" /> <statusCode code=& quot;completed" /><effectiveTime value="473545465692" /&gt ; <value unit="mmol/L" xsi:type="PQ" value=&quot ;6.4" /> <interpretationCode codeSystem="local" code="" /> <referenceRange> < observationRange> <text>3.5-5.3</text> & lt;/observationRange> </referenceRange> </ observation> </component> <component> < observation moodCode="EVN" classCode="OBS"> < templateId root="2.16.840.1.306768.10.20.22.4.2" /> < id nullFlavor="NA" /> <code codeSystem="local" code=& quot;eGFR" displayName="EST GFR (MDRD)"/> < statusCode code="completed" /> <effectiveTime value=& quot;288999542639" /> <value unit="mL/min" xsi: type="PQ" value="18" /> <interpretationCode codeSystem="local" code="*" /> < referenceRange> <observationRange> <text> > 59</text> </observationRange> </ referenceRange> </observation> </component> < component> <observation moodCode="EVN" classCode=" OBS"> <templateId root="2.16.840.1.738172.10.20.22.4.2& quot; /> <id nullFlavor="NA" /> <code codeSystem="local" code="GAP" displayName="ANION GAP& quot; /> <statusCode code="completed" /> & lt;effectiveTime value="208354593761" /> <value unit="mmol /L" xsi:type="PQ" value="9" /> < referenceRange> <observationRange> <text> 5-15</text> </observationRange> </referenceRange&gt ; </observation> </component> <component> <observation moodCode="EVN" classCode="OBS"> <templateId root="2.16.840.1.287841.10.20.22.4.2" /> < id nullFlavor="NA" /> <code codeSystem="local&quot ; code="eCrCl" displayName="EST CrCl (CG)" /> & lt;statusCode code="completed" /> <effectiveTime value= "768937905940" /> <value unit="mL/min" xsi: type="PQ" value="28" /> <interpretationCode codeSystem="local" code="*" /> < referenceRange> <observationRange> <text> > 59</text> </observationRange> </ referenceRange> </observation> </component> < component> <observation moodCode="EVN" classCode=" OBS"> <templateId root="2.16.840.1.150941.10.20.22.4.2& quot; /> <id nullFlavor="NA" /> <code codeSystem="local" code="GLU" displayName="GLUCOSE&quot ; /> <statusCode code="completed" /> < effectiveTime value="256939588296" /> <value unit=&quot ;mg/dL" xsi:type="PQ" value="203" /> < interpretationCode codeSystem="local" code="*" /> <referenceRange> <observationRange> < text>70-99</text> </observationRange> </ referenceRange> </observation> </component> < component> <observation moodCode="EVN" classCode=" OBS"> <templateId root="2.16.840.1.307228.10.20.22.4.2& quot; /> <id nullFlavor="NA" /> <code codeSystem="local" code="CA" displayName="CALCIUM&quot ; /> <statusCode code="completed" /> < effectiveTime value="119798073570" /> <value unit="mg/ dL" xsi:type="PQ" value="8.7" /> < referenceRange> <observationRange> <text> 8.5-10.1</text> </observationRange> </ referenceRange> </observation> </component> < component> <observation moodCode="EVN" classCode=" OBS"> <templateId root="2.16.840.1.431203.10.20.22.4.2& quot; /> <id nullFlavor="NA" /> <code codeSystem="local" code="BUN" displayName="BLOOD UREA NITROGEN" /> <statusCode code="completed" /> <effectiveTime value="372041178574" /> < value unit="mg/dL" xsi:type="PQ" value="61" /> <interpretationCode codeSystem="local" code="*&quot ; /> <referenceRange> <observationRange> <text>7-20</text> </observationRange> </referenceRange> </observation> </component> <component> <observation moodCode="EVN" classCode=& quot;OBS"> <templateId root="2.16.840.1.051542.10.20.22.4.2& quot; /> <id nullFlavor="NA" /> <code codeSystem="local" code="CREAT" displayName="CREATININE " /> <statusCode code="completed" /> & lt;effectiveTime value="679891300657" /> <value unit=& quot;mg/dL" xsi:type="PQ" value="2.6" /> & lt;interpretationCode codeSystem="local" code="*" /> <referenceRange> <observationRange> <text& gt;0.6-1.0</text> </observationRange> </ referenceRange> </observation> </component> < component> <observation moodCode="EVN" classCode=" OBS"> <templateId root="2.16.840.1.754907.10.20.22.4.2& quot; /> <id nullFlavor="NA" /> <code codeSystem="local" code="NA" displayName="SODIUM" /> <statusCode code="completed" /> < effectiveTime value="131283505189" /> <value unit=&quot ;mmol/L" xsi:type="PQ" value="135" /> < referenceRange> <observationRange> <text> 135-148</text> </observationRange> </ referenceRange> </observation> </component> < component> <observation moodCode="EVN" classCode=" OBS"> <templateId root="2.16.840.1.413408.10.20.22.4.2& quot; /> <id nullFlavor="NA" /> <code codeSystem="local" code="CL" displayName="CHLORIDE&quot ; /> <statusCode code="completed" /> < effectiveTime value="526147042215" /> <value unit=&quot ;mmol/L" xsi:type="PQ" value="101" /> < referenceRange> <observationRange> <text> 98-110</text> </observationRange> </referenceRange> </observation> </component> <component> <observation moodCode="EVN" classCode="OBS"> <templateId root="2.16.840.1.252835.10..22.4.2" /> <id nullFlavor="NA" /> <code codeSystem=" local" code="CO2" displayName="CARBON DIOXIDE" /> <statusCode code="completed" /> < effectiveTime value="091918594390" /> <value unit=&quot ;mmol/L" xsi:type="PQ" value="25" /> < referenceRange> <observationRange> <text>21-32&lt ;/text> </observationRange> </referenceRange&gt ; </observation> </component> </organizer> &lt ;/entry> <entry> <organizer moodCode="EVN" classCode=& quot;BATTERY"> <templateId root=" 2.16.840.1.837188.10..22.4.1" /> <id nullFlavor="NA&quot ; /> <code codeSystem="local" code="CBCD" displayName="CBC W/DIFF" /> <statusCode code=" completed" /><component> <observation moodCode="EVN " classCode="OBS"> <templateId root=" 2.16.840.1.623946.10.20.22.4.2" /> <id nullFlavor="NA& quot; /> <code codeSystem="local" code="GR#" displayName="GRANULOCYTE #" /> <statusCode code=" completed" /> <effectiveTime value="631732457783" /> <value unit="k/cumm" xsi:type="PQ" value=& quot;16.8" /> <interpretationCode codeSystem="local& quot; code="*" /> <referenceRange> < observationRange> <text>2.0-9.0</text> </ observationRange> </referenceRange> </observation&gt ; </component> <component> <observation moodCode ="EVN" classCode="OBS"> <templateId root=& quot;2.16.840.1.663628.10.20.22.4.2" /> <id nullFlavor=&quot ;NA" /> <code codeSystem="local" code="GR&amp ;#37;" displayName="GRANULOCYTE %" /> < statusCode code="completed" /> <effectiveTime value=& quot;329251502422" /> <value unit="%" xsi: type="PQ" value="85" /> <interpretationCode codeSystem="local" code="*" /> < referenceRange> <observationRange> <text> 50-75</text> </observationRange> </ referenceRange> </observation> </component> < component> <observation moodCode="EVN" classCode=" OBS"> <templateId root="2.16.840.1.656609.10.20.22.4.2& quot; /> <id nullFlavor="NA" /> <code codeSystem="local" code="LY#" displayName="LYMPHOCYTE # " /> <statusCode code="completed" /> & lt;effectiveTime value="520843079552" /> <value unit=& quot;k/cumm" xsi:type="PQ" value="0.9" /> < interpretationCode codeSystem="local" code="*" /> <referenceRange> <observationRange> < text>1.0-4.0</text> </observationRange> </ referenceRange> </observation> </component> < component> <observation moodCode="EVN" classCode=" OBS"> <templateId root="2.16.840.1.159986.10..22.4.2& quot; /> <id nullFlavor="NA" /> <code codeSystem ="local" code="LY%" displayName="LYMPHOCYTE & amp;#37;" /> <statusCode code="completed" /> <effectiveTime value="433019198234" /> < value unit="%" xsi:type="PQ" value="5" /& gt; <interpretationCode codeSystem="local" code="*& quot; /> <referenceRange> <observationRange> <text>20-30</text> </observationRange> </referenceRange> </observation> </component > <component> <observation moodCode="EVN" classCode="OBS"> <templateId root=" 2.16.840.1.886124.10.20.22.4.2" /> <id nullFlavor="NA& quot; /> <code codeSystem="local" code="MCH" displayName="MEAN CELL HGB" /> <statusCode code=" completed" /> <effectiveTime value="220508840565" /> <value unit="pg" xsi:type="PQ" value=&quot ;28.1" /> <referenceRange> < observationRange> <text>27.0-33.0</text> </observationRange> </referenceRange> </observation&gt ; </component> <component> <observation moodCode ="EVN" classCode="OBS"> <templateId root=& quot;2.16.840.1.557210.10.20.22.4.2" /> <id nullFlavor=&quot ;NA" /> <code codeSystem="local" code="[facility]& quot; displayName="MEAN CELL HGB CONCENTRATION" /> < statusCode code="completed" /> <effectiveTime value=& quot;280431504512" /> <value unit="g/dL" xsi:type= "PQ" value="30.6" /> <interpretationCode codeSystem="local" code="*" /> < referenceRange> <observationRange> <text>32.0- 37.0</text> </observationRange> </ referenceRange> </observation> </component> < component> <observation moodCode="EVN" classCode=" OBS"> <templateId root="2.16.840.1.628947.10.20.22.4.2& quot; /> <id nullFlavor="NA" /> <code codeSystem="local" code="MCV" displayName="MEAN CELL VOLUME" /> <statusCode code="completed" /> <effectiveTime value="588327861621" /> <value unit="fl" xsi:type="PQ" value="91.7" /> <referenceRange> <observationRange> < text>80.0-100.0</text> </observationRange> & lt;/referenceRange> </observation> </component> & lt;component> <observation moodCode="EVN" classCode=&quot ;OBS"> <templateId root="2.16.840.1.068423.10.20.22.4.2 " /> <id nullFlavor="NA" /> <code codeSystem="local" code="MO#" displayName="MONOCYTE #& quot; /> <statusCode code="completed" /> & lt;effectiveTime value="198646711662" /> <value unit=& quot;k/cumm" xsi:type="PQ" value="2.0" /> < interpretationCode codeSystem="local" code="*" /> <referenceRange> <observationRange> < text>0.1-1.0</text> </observationRange> </ referenceRange> </observation> </component> < component> <observation moodCode="EVN" classCode=" OBS"> <templateId root="2.16.840.1.261699.10.20.22.4.2& quot; /> <id nullFlavor="NA" /> <code codeSystem ="local" code="MO%" displayName="MONOCYTE & #37;" /> <statusCode code="completed" /> <effectiveTime value="753675695558" /> <value unit="%" xsi:type="PQ" value="10" /> <interpretationCode codeSystem="local" code="*" / > <referenceRange> <observationRange> <text>4-6</text> </observationRange> & lt;/referenceRange> </observation> </component>< component> <observation moodCode="EVN" classCode=" OBS"> <templateId root="2.16.840.1.935101.10.20.22.4.2" /> <id nullFlavor="NA" /> <code codeSystem="local" code="RBC" displayName="RED BLOOD CELL" /> <statusCode code="completed" /> <effectiveTime value="989321016929" /> <value unit="m/cumm" xsi:type="PQ" value="3.60" /> <interpretationCode codeSystem="local" code="*" /& gt; <referenceRange> <observationRange> <text>4.00-6.00</text> </observationRange> </referenceRange> </observation> </component&gt ; <component> <observation moodCode="EVN" classCode="OBS"> <templateId root=" 2.16.840.1.121116.10.20.22.4.2" /> <id nullFlavor="NA& quot; /> <code codeSystem="local" code="RDW" displayName="RED CELL DISTRIBUTION WIDTH" /> < statusCode code="completed" /> <effectiveTimevalue=& quot;315023814531" /> <value unit="%" xsi: type="PQ" value="16.6" /> < interpretationCode codeSystem="local" code="*" /> <referenceRange> <observationRange><text>11.0- 15.6</text> </observationRange> </ referenceRange> </observation> </component> < component> <observation moodCode="EVN" classCode=" OBS"> <templateId root="2.16.840.1.778243.10.20.22.4.2& quot; /> <id nullFlavor="NA" /> <code codeSystem="local" code="WBC" displayName="WHITE BLOOD CELL" /> <statusCode code="completed" /> < effectiveTime value="427356854677" /> <value unit=&quot ;k/cumm" xsi:type="PQ" value="19.8" /> < interpretationCode codeSystem="local" code="*" /> < referenceRange> <observationRange> <text> 5.0-10.0</text> </observationRange> </ referenceRange> </observation> </component> < component> <observation moodCode="EVN" classCode=" OBS"> <templateId root="2.16.840.1.514950.10.20.22.4.2& quot;/> <id nullFlavor="NA" /> <code codeSystem="local"code="HGBT" displayName="HEMOGLOBIN& quot; /> <statusCode code="completed" /> & lt;effectiveTime value="545364342456" /> <value unit=& quot;gm/dL" xsi:type="PQ" value="10.1" /> & lt;interpretationCode codeSystem="local" code="*" /> <referenceRange> <observationRange> <text& gt;12.0-16.0</text> </observationRange> </ referenceRange> </observation> </component> < component> <observation moodCode="EVN" classCode=" OBS"> <templateId root="2.16.840.1.638630.10.20.22.4.2&quot ; /> <id nullFlavor="NA" /> <code codeSystem="local" code="HCTT" displayName="HEMATOCRIT& quot; /> <statusCode code="completed" /> & lt;effectiveTime value="231160147804" /> <value unit=& quot;%" xsi:type="PQ" value="33.0" /> <interpretationCode codeSystem="local" code="*" /&gt ; <referenceRange> <observationRange> <text>37.0-47.0</text> </observationRange> </referenceRange> </observation> </component&gt ; <component> <observation moodCode="EVN" classCode="OBS"> <templateId root=" 2.16.840.1.745402.10.20.22.4.2" /> <id nullFlavor="NA& quot; /> <code codeSystem="local" code="PLTT" displayName="PLATELET COUNT" /> <statusCode code=" completed" /> <effectiveTime value="902619020957" /> <value unit="k/cumm" xsi:type="PQ" value=& quot;369" /> <referenceRange> < observationRange> <text>150-450</text> </ observationRange> </referenceRange> </observation&gt ; </component> </organizer> </entry> <entry> <organizer moodCode="EVN" classCode="BATTERY"> <templateId root="2.16.840.1.460872.10.20.22.4.1" /> < id nullFlavor="NA" /> <code codeSystem="local" code ="METAB" displayName="METABOLIC PANEL, BASIC" /> &lt ;statusCode code="completed" /> <component> < observation moodCode="EVN" classCode="OBS"> < templateId root="2.16.840.1.337784.10.20.22.4.2" /> < id nullFlavor="NA" /> <code codeSystem="local" code= "K" displayName="POTASSIUM" /> <statusCode code ="completed" /> <effectiveTime value="641325907425 " /> <value unit="mmol/L" xsi:type="PQ" value="6.4" /> <interpretationCode codeSystem=" local" code="" /> <referenceRange> & lt;observationRange> <text>3.5-5.3</text> </observationRange> </referenceRange> </ observation> </component> <component> < observation moodCode="EVN" classCode="OBS"> < templateId root="2.16.840.1.282239.10.20.22.4.2" /> < id nullFlavor="NA" /> <code codeSystem="local&quot ; code="eGFR" displayName="EST GFR (MDRD)" /> & lt;statusCode code="completed" /> <effectiveTime value= "287211952901" /> <value unit="mL/min" xsi: type="PQ" value="18" /> <interpretationCode codeSystem="local" code="*" /> < referenceRange> <observationRange> <text>& amp;gt; 59</text> </observationRange> </ referenceRange> </observation> </component> < component> <observation moodCode="EVN" classCode=" OBS"> <templateId root="2.16.840.1.878587.10..22.4.2& quot; /> <id nullFlavor="NA" /> <code codeSystem="local" code="GAP" displayName="ANION GAP& quot; /> <statusCode code="completed" /> < effectiveTime value="541704305349" /> <value unit=&quot ;mmol/L"xsi:type="PQ" value="9" /> < referenceRange> <observationRange> <text> 5-15</text> </observationRange> </referenceRange& gt; </observation> </component> <component> <observation moodCode="EVN" classCode="OBS"> <templateId root="2.16.840.1.590867.10.20.22.4.2" /> <id nullFlavor="NA" /> <code codeSystem=&quot ;local" code="eCrCl" displayName="EST CrCl (CG)" /> <statusCode code="completed" /> < effectiveTime value="350573236105" /> <value unit=&quot ;mL/min" xsi:type="PQ" value="28" /> < interpretationCode codeSystem="local" code="*" /> <referenceRange> <observationRange> < text>> 59</text> </observationRange> & lt;/referenceRange> </observation> </component> <component> <observation moodCode="EVN" classCode=& quot;OBS"> <templateId root=" 2.16.840.1.606189.10.20.22.4.2" /> <id nullFlavor="NA& quot; /> <code codeSystem="local" code="GLU" displayName="GLUCOSE" /> <statusCode code=" completed" /> <effectiveTime value="244252319974" /> <value unit="mg/dL" xsi:type="PQ" value=& quot;203" /> <interpretationCode codeSystem="local" code="*" /> <referenceRange> < observationRange> <text>70-99</text> </ observationRange> </referenceRange> </observation&gt ; </component> <component> <observation moodCode ="EVN" classCode="OBS"> <templateId root=& quot;2.16.840.1.098779.10.20.22.4.2" /> <id nullFlavor=&quot ;NA" /> <code codeSystem="local" code="CA& quot; displayName="CALCIUM" /> <statusCode code=" completed" /> <effectiveTime value="181048457516" /& gt; <value unit="mg/dL" xsi:type="PQ" value=& quot;8.7" /> <referenceRange> < observationRange> <text>8.5-10.1</text> & lt;/observationRange> </referenceRange> </ observation> </component> <component> < observation moodCode="EVN" classCode="OBS"> < templateId root="2.16.840.1.181325.10.20.22.4.2" /> < id nullFlavor="NA" /> <code codeSystem="local&quot ; code="BUN" displayName="BLOOD UREA NITROGEN" /> <statusCode code="completed" /> <effectiveTime value="402963521272" /> <value unit="mg/dL" xsi:type="PQ" value="61" /> < interpretationCode codeSystem="local" code="*" /> <referenceRange> <observationRange> <text&gt ;7-20</text> </observationRange> </ referenceRange> </observation> </component> < component> <observation moodCode="EVN" classCode=" OBS"> <templateId root="2.16.840.1.614772.10.20.22.4.2& quot; /> <id nullFlavor="NA" /> <code codeSystem="local" code="CREAT" displayName="CREATININE " /> <statusCode code="completed" /> < effectiveTime value="394273840860" /> <value unit=&quot ;mg/dL" xsi:type="PQ" value="2.6"/> < interpretationCode codeSystem="local" code="*" />< referenceRange> <observationRange> <text> 0.6-1.0</text> </observationRange> </ referenceRange> </observation> </component> < component> <observation moodCode="EVN" classCode=" OBS"> <templateId root="2.16.840.1.539700.10.20.22.4.2& quot; /> <id nullFlavor="NA" /> <code codeSystem="local" code="NA" displayName="SODIUM" /> <statusCode code="completed" /> < effectiveTime value="405920540582" /> <value unit=&quot ;mmol/L" xsi:type="PQ" value="135" /> < referenceRange> <observationRange> <text>135 -148</text> </observationRange> </ referenceRange> </observation> </component> < component> <observation moodCode="EVN" classCode=" OBS"> <templateId root="2.16.840.1.691322.10.20.22.4.2& quot; /> <id nullFlavor="NA" /> <code codeSystem="local" code="CL" displayName="CHLORIDE&quot ; /> <statusCode code="completed" /> < effectiveTime value="934162010670" /> <value unit=&quot ;mmol/L" xsi:type="PQ" value="101" /> < referenceRange> <observationRange> <text> 98-110</text> </observationRange> </referenceRange&gt ; </observation> </component> <component> <observation moodCode="EVN" classCode="OBS"> <templateIdroot="2.16.840.1.682253.10.20.22.4.2" /> <id nullFlavor="NA" /> <code codeSystem=" local" code="CO2" displayName="CARBON DIOXIDE" /> <statusCode code="completed" /> < effectiveTime value="587721360912" /> <value unit=&quot ;mmol/L" xsi:type="PQ" value="25" /> < referenceRange> <observationRange> <text>21-32&lt ;/text> </observationRange> </referenceRange&gt ; </observation> </component> </organizer> &lt ;/entry> <entry> <organizer moodCode="EVN" classCode=& quot;BATTERY"> <templateId root=" 2.16.840.1.230387.10.20.22.4.1" /> <id nullFlavor="NA&quot ; /> <code codeSystem="local" code="CBCD" displayName="CBC W/DIFF" /> <statusCode code=" completed" /> <component> <observation moodCode=& quot;EVN" classCode="OBS"> <templateId root=" 2.16.840.1.230528.10.20.22.4.2" /> <id nullFlavor="NA& quot; /> <code codeSystem="local" code="GR#" displayName="GRANULOCYTE #" /> <statusCode code=" completed" /> <effectiveTime value="860346216744" /> <value unit="k/cumm" xsi:type="PQ" value=& quot;16.8" /> <interpretationCode codeSystem="local& quot; code="*" /> <referenceRange> < observationRange> <text>2.0-9.0</text> & lt;/observationRange> </referenceRange> </ observation> </component> <component> < observation moodCode="EVN" classCode="OBS"> < templateId root="2.16.840.1.847695.10.20.22.4.2"/> <id nullFlavor="NA" /> <code codeSystem="local" code="GR%" displayName="GRANULOCYTE %" /&gt ; <statusCode code="completed" /> < effectiveTime value="969321705111" /> <value unit=" %" xsi:type="PQ" value="85" /> < interpretationCode codeSystem="local" code="*" /> <referenceRange> <observationRange> < text>50-75</text> </observationRange> </ referenceRange> </observation> </component> < component> <observation moodCode="EVN" classCode=" OBS"> <templateId root="2.16.840.1.527148.10.20.22.4.2& quot; /> <id nullFlavor="NA" /> <code codeSystem="local" code="LY#" displayName="LYMPHOCYTE # " /> <statusCode code="completed" /> & lt;effectiveTime value="317858628942" /> <value unit=& quot;k/cumm" xsi:type="PQ" value="0.9" /> & lt;interpretationCode codeSystem="local" code="*" /> <referenceRange> <observationRange> & lt;text>1.0-4.0</text> </observationRange> </ referenceRange> </observation> </component> < component> <observation moodCode="EVN" classCode=" OBS"> <templateId root="2.16.840.1.045231.10.20.22.4.2& quot; /> <id nullFlavor="NA" /> <code codeSystem="local" code="LY%" displayName=" LYMPHOCYTE %" /> <statusCode code="completed& quot; /> <effectiveTime value="241764603068" /> <value unit="%" xsi:type="PQ" value="5 " /> <interpretationCode codeSystem="local" code=& quot;*" /> <referenceRange> < observationRange> <text>20-30</text> </ observationRange> </referenceRange> </observation&gt ; </component> <component> <observation moodCode ="EVN" classCode="OBS"> <templateId root=& quot;2.16.840.1.249156.10.20.22.4.2" /> <id nullFlavor=&quot ;NA" /> <code codeSystem="local" code="[facility]& quot; displayName="MEAN CELL HGB" /> <statusCode code=& quot;completed" /> <effectiveTime value="226976288978& quot; /> <value unit="pg" xsi:type="PQ" value ="28.1" /> <referenceRange> < observationRange> <text>27.0-33.0</text> </observationRange> </referenceRange></observation> </component> <component> <observation moodCode=& quot;EVN" classCode="OBS"> <templateId root=" 2.16.840.1.468819.10.20.22.4.2" /> <id nullFlavor="NA& quot; /> <code codeSystem="local" code="[facility]&quot ; displayName="MEAN CELL HGB CONCENTRATION" /> <statusCode code="completed" /> <effectiveTime value=" 366268616474" /> <value unit="g/dL" xsi:type=&quot ;PQ" value="30.6" /> <interpretationCode codeSystem="local" code="*" /> <referenceRange> <observationRange> <text>32.0-37.0</text& gt; </observationRange> </referenceRange> </observation> </component> <component> &lt ;observation moodCode="EVN" classCode="OBS"> &lt ;templateId root="2.16.840.1.610228.10.20.22.4.2"/> < id nullFlavor="NA" /> <code codeSystem="local&quot ;code="MCV" displayName="MEAN CELL VOLUME" /> & lt;statusCode code="completed" /> <effectiveTime value= "533501626930" /> <value unit="fl" xsi:type=& quot;PQ" value="91.7" /> <referenceRange> <observationRange> <text>80.0-100.0</text&gt ; </observationRange> </referenceRange> </ observation> </component> <component> < observation moodCode="EVN" classCode="OBS"> < templateId root="2.16.840.1.063085.10.20.22.4.2" /> <id nullFlavor="NA" /> <code codeSystem="local" code="MO#" displayName="MONOCYTE #" /> < statusCode code="completed" /> <effectiveTime value=& quot;189003236558" /> <value unit="k/cumm" xsi: type="PQ" value="2.0" /> <interpretationCode codeSystem="local" code="*" /> < referenceRange> <observationRange> <text> 0.1-1.0</text> </observationRange> </ referenceRange> </observation> </component> < component> <observation moodCode="EVN" classCode=" OBS"> <templateId root="2.16.840.1.073105.10.20.22.4.2& quot; /> <id nullFlavor="NA" /> <code codeSystem="local" code="MO%" displayName=" MONOCYTE %" /> <statusCode code="completed&quot ; /> <effectiveTime value="907536101329" /> <value unit="%" xsi:type="PQ" value="10& quot; /> <interpretationCode codeSystem="local" code=& quot;*" /> <referenceRange> < observationRange> <text>4-6</text> </ observationRange> </referenceRange> </observation&gt ; </component> <component> <observation moodCode ="EVN" classCode="OBS"> <templateId root=& quot;2.16.840.1.922760.10.20.22.4.2" /> <id nullFlavor=&quot ;NA" /> <code codeSystem="local" code="RBC& quot; displayName="RED BLOOD CELL" /> <statusCode code=&quot ;completed" /> <effectiveTime value="393053918866&quot ; /> <value unit="m/cumm" xsi:type="PQ" value ="3.60" /> <interpretationCode codeSystem="local& quot; code="*" /> <referenceRange> < observationRange> <text>4.00-6.00</text> </observationRange> </referenceRange> </ observation> </component> <component> < observation moodCode="EVN" classCode="OBS"> < templateId root="2.16.840.1.927648.10.20.22.4.2" /> < id nullFlavor="NA" /> <code codeSystem="local&quot ; code="RDW" displayName="RED CELL DISTRIBUTION WIDTH" /&gt ; <statusCode code="completed" /> < effectiveTime value="552898044771" /> <value unit=&quot ;%" xsi:type="PQ" value="16.6" /> &lt ;interpretationCode codeSystem="local" code="*" /> <referenceRange> <observationRange> < text>11.0-15.6</text> </observationRange> </ referenceRange> </observation> </component> < component> <observation moodCode="EVN" classCode=" OBS"> <templateId root="2.16.840.1.953922.10.20.22.4.2& quot; /> <id nullFlavor="NA" /> <code codeSystem="local" code="WBC" displayName="WHITE BLOOD CELL" /> <statusCode code="completed" /> <effectiveTime value="817299021505" /> <value unit="k/cumm" xsi:type="PQ" value="19.8" /> <interpretationCode codeSystem="local" code="*" /& gt; <referenceRange> <observationRange> < text>5.0-10.0</text> </observationRange> < /referenceRange> </observation> </component> &lt ;component> <observation moodCode="EVN" classCode=" OBS"> <templateId root="2.16.840.1.633007.10.20.22.4.2" /& gt; <id nullFlavor="NA" /> <code codeSystem ="local" code="HGBT" displayName="HEMOGLOBIN" /&gt ; <statusCode code="completed" /> < effectiveTime value="992399420911" /> <value unit=&quot ;gm/dL" xsi:type="PQ" value="10.1" /> < interpretationCode codeSystem="local" code="*" /> <referenceRange> <observationRange> <text> 12.0-16.0</text> </observationRange> </ referenceRange> </observation> </component> < component> <observation moodCode="EVN" classCode=" OBS"> <templateId root="2.16.840.1.983546.10.20.22.4.2& quot; /> <id nullFlavor="NA" /> <code codeSystem="local" code="HCTT" displayName="HEMATOCRIT& quot; /> <statusCode code="completed" /> < effectiveTime value="661496876202" /> <value unit=&quot ;%" xsi:type="PQ" value="33.0" /> & lt;interpretationCode codeSystem="local" code="*" /> <referenceRange> <observationRange> < text>37.0-47.0</text> </observationRange> &lt ;/referenceRange> </observation> </component> & lt;component> <observation moodCode="EVN" classCode=&quot ;OBS"> <templateId root="2.16.840.1.385760.10.20.22.4.2 " /> <id nullFlavor="NA" /> <code codeSystem="local" code="PLTT" displayName="PLATELET COUNT" /> <statusCode code="completed" /> <effectiveTime value="544873705556" /><value unit=" k/cumm" xsi:type="PQ" value="369" /> < referenceRange> <observationRange> <text> 150-450</text> </observationRange> </ referenceRange> </observation></component> </ organizer> </entry> <entry> <organizer moodCode="EVN " classCode="BATTERY"> <templateId root=" 2.16.840.1.490488.10.20.22.4.1" /> <id nullFlavor="NA&quot ; /> <code codeSystem="local" code="K" displayName="POTASSIUM" /> <statusCode code="completed " /> <component> <observation moodCode="EVN& quot; classCode="OBS"> <templateId root=" 2.16.840.1.553503.10.20.22.4.2" /> <id nullFlavor="NA" /& gt; <code codeSystem="local" code="K" displayName="POTASSIUM" /> <statusCode code=" completed" /> <effectiveTime value="500616895164" /> <value unit="mmol/L" xsi:type="PQ" value=& quot;6.2" /> <interpretationCode codeSystem="local&quot ; code="" /> <referenceRange> < observationRange> <text>3.5-5.3</text> & lt;/observationRange> </referenceRange> </observation&gt ; </component> </organizer> </entry> <entry> <organizer moodCode="EVN" classCode="BATTERY"> <templateId root="2.16.840.1.294051.10.20.22.4.1" /> < id nullFlavor="NA" /> <code codeSystem="local" code="K" displayName="POTASSIUM" /> <statusCode code="completed" /> <component> <observation moodCode="EVN" classCode="OBS"> <templateId root="2.16.840.1.781710.10.20.22.4.2" /> <id nullFlavor ="NA" /> <code codeSystem="local" code=" K" displayName="POTASSIUM" /> <statusCode code=& quot;completed" /> <effectiveTime value="990136642353& quot; /> <value unit="mmol/L" xsi:type="PQ" value="6.2" /> <interpretationCode codeSystem=" local" code="" /> <referenceRange> <observationRange> <text>3.5-5.3</text> </observationRange> </referenceRange> </ observation> </component> </organizer> </entry> & lt;entry> <organizer moodCode="EVN" classCode="BATTERY& quot;> <templateId root="2.16.840.1.680183.10.20.22.4.1" /& gt; <id nullFlavor="NA" /> <codecodeSystem=" local" code="GHGLUMON" displayName="GLUCOSE (POC)" /&gt ; <statusCode code="completed" /> <component> <observation moodCode="EVN" classCode="OBS"> <templateId root="2.16.840.1.523349.10.20.22.4.2" /> <id nullFlavor="NA" /> <code codeSystem=" local" code="GHGLUMON" displayName="GLUCOSE (POC)" /&gt ;<statusCode code="completed" /> <effectiveTime value="336534782468" /> <value unit="mg/dL" xsi:type="PQ" value="208" /> < interpretationCode codeSystem="local" code="*" /> <referenceRange> <observationRange> < text>70-99</text> </observationRange> </ referenceRange> </observation> </component> </ organizer> </entry> <entry> <organizer moodCode="EVN " classCode="BATTERY"> <templateId root=" 2.16.840.1.858788.10.20.22.4.1" /> <id nullFlavor="NA&quot ; /> <code codeSystem="local" code="GHGLUMON" displayName="GLUCOSE (POC)" /> <statusCode code=" completed" /> <component> <observation moodCode=& quot;EVN"classCode="OBS"> <templateId root=" 2.16.840.1.455051.10.20.22.4.2" /> <id nullFlavor="NA& quot; /> <code codeSystem="local" code="GHGLUMON& quot; displayName="GLUCOSE (POC)" /> <statusCode code=& quot;completed" /> <effectiveTime value="293633201705& quot; /> <value unit="mg/dL" xsi:type="PQ" value="208" /> <interpretationCode codeSystem=" local" code="*" /> <referenceRange> & lt;observationRange> <text>70-99</text> & lt;/observationRange> </referenceRange> </ observation> </component> </organizer> </entry> & lt;entry> <organizer moodCode="EVN" classCode="BATTERY& quot;> <templateId root="2.16.840.1.203269.10.20.22.4.1" /& gt; <id nullFlavor="NA" /> <code codeSystem=" local" code="METAB" displayName="METABOLIC PANEL, BASIC&quot ; /> <statusCode code="completed" /> <component& gt; <observation moodCode="EVN" classCode="OBS"&gt ; <templateId root="2.16.840.1.344028.10.20.22.4.2" /> <id nullFlavor="NA" /> <code codeSystem="local& quot; code="K" displayName="POTASSIUM" /> < statusCode code="completed" /> <effectiveTime value=& quot;484312977453" /> <value unit="mmol/L" xsi: type="PQ" value="6.3" /> <interpretationCode codeSystem="local" code="" /> < referenceRange> <observationRange> <text> 3.5-5.3</text> </observationRange> </referenceRange& gt; </observation> </component> <component> <observation moodCode="EVN" classCode="OBS"> <templateId root="2.16.840.1.788558.10.20.22.4.2" /> <id nullFlavor="NA" /> <code codeSystem=&quot ;local" code="eGFR" displayName="EST GFR (MDRD)" /> <statusCode code="completed" /> < effectiveTime value="113591994300" /> <value unit=&quot ;mL/min" xsi:type="PQ" value="16" /> < interpretationCode codeSystem="local" code="*" /> <referenceRange> <observationRange> < text>> 59</text> </observationRange> & lt;/referenceRange> </observation> </component> & lt;component> <observation moodCode="EVN" classCode=&quot ;OBS"> <templateId root="2.16.840.1.907707.10.20.22.4.2 " /> <id nullFlavor="NA" /> <code codeSystem="local" code="GAP" displayName="ANION GAP& quot; /> <statusCode code="completed" /> & lt;effectiveTime value="976969178071" /> <value unit=& quot;mmol/L" xsi:type="PQ" value="12" /> < referenceRange> <observationRange> <text> 5-15</text> </observationRange> </ referenceRange> </observation> </component> < component> <observation moodCode="EVN" classCode=" OBS"> <templateId root="2.16.840.1.300640.10.20.22.4.2& quot; /> <id nullFlavor="NA" /> <code codeSystem="local" code="eCrCl" displayName="EST CrCl ( CG)" /> <statusCode code="completed" /> <effectiveTime value="549526158162" /> <value unit="mL/min" xsi:type="PQ" value="25" /> <interpretationCode codeSystem="local" code="*" /&gt ; <referenceRange> <observationRange> < text>> 59</text> </observationRange> & lt;/referenceRange> </observation> </component> & lt;component> <observation moodCode="EVN" classCode=&quot ;OBS"> <templateId root="2.16.840.1.046357.10.20.22.4.2& quot; /> <id nullFlavor="NA" /> <code codeSystem="local" code="GLU" displayName="GLUCOSE&quot ; /> <statusCode code="completed" /> < effectiveTime value="276351947764" /> <value unit=&quot ;mg/dL" xsi:type="PQ" value="198" /> < interpretationCode codeSystem="local" code="*" /> <referenceRange> <observationRange> <text&gt ;70-99</text> </observationRange> </ referenceRange> </observation> </component> < component> <observation moodCode="EVN" classCode=" OBS"> <templateId root="2.16.840.1.644955.10.20.22.4.2& quot; /> <id nullFlavor="NA" /> <code codeSystem="local" code="CA" displayName="CALCIUM&quot ; /> <statusCode code="completed" /> < effectiveTime value="975117919989" /> <value unit=&quot ;mg/dL" xsi:type="PQ" value="8.8" /> < referenceRange> <observationRange> <text> 8.5-10.1</text> </observationRange> </ referenceRange> </observation> </component> < component> <observation moodCode="EVN" classCode=" OBS"> <templateId root="2.16.840.1.620683.10.20.22.4.2& quot; /> <id nullFlavor="NA" /> <code codeSystem="local" code="BUN" displayName="BLOOD UREA NITROGEN" /> <statusCode code="completed" /> <effectiveTime value="949539617914" /> <value unit="mg/dL" xsi:type="PQ" value="60" /> <interpretationCode codeSystem="local" code="*" /&gt ; <referenceRange> <observationRange> <text>7-20</text> </observationRange> </referenceRange> </observation> </component> <component> <observation moodCode="EVN" classCode=& quot;OBS"> <templateId root=" 2.16.840.1.364924.10.20.22.4.2" /> <id nullFlavor="NA& quot; /> <code codeSystem="local" code="CREAT&quot ; displayName="CREATININE" /> <statusCode code=" completed" /> <effectiveTime value="453173629474" /&gt ; <value unit="mg/dL" xsi:type="PQ" value=" 2.9" /> <interpretationCode codeSystem="local" code="*" /> <referenceRange> < observationRange> <text>0.6-1.0</text> & lt;/observationRange> </referenceRange> </ observation> </component> <component> <observation moodCode="EVN" classCode="OBS"> <templateId root="2.16.840.1.005798.10.20.22.4.2" /> <id nullFlavor ="NA" /> <code codeSystem="local" code="NA& quot; displayName="SODIUM" /> <statusCode code=" completed" /> <effectiveTime value="553289741357" /> <value unit="mmol/L" xsi:type="PQ" value=& quot;135" /> <referenceRange> < observationRange> <text>135-148</text> & lt;/observationRange> </referenceRange> </observation> </component> <component> <observation moodCode= "EVN" classCode="OBS"> <templateId root=&quot ;2.16.840.1.441963.10.20.22.4.2" /> <id nullFlavor="NA& quot; /> <code codeSystem="local" code="CL" displayName="CHLORIDE" /> <statusCodecode=" completed" /> <effectiveTime value="634947677294" /> <value unit="mmol/L" xsi:type="PQ" value=" 99" /> <referenceRange> <observationRange& gt; <text>98-110</text> </ observationRange> </referenceRange> </observation&gt ; </component> <component> <observation moodCode=& quot;EVN" classCode="OBS"> <templateId root=" 2.16.840.1.733344.10.20.22.4.2" /> <id nullFlavor="NA& quot; /> <code codeSystem="local" code="CO2" displayName="CARBON DIOXIDE" /> <statusCode code=" completed" /> <effectiveTime value="243644481683" /> <value unit="mmol/L" xsi:type="PQ" value=& quot;24" /> <referenceRange> < observationRange> <text>21-32</text> < /observationRange> </referenceRange> </observation& gt; </component> </organizer> </entry> <entry&gt ; <organizer moodCode="EVN" classCode="BATTERY"> <templateId root="2.16.840.1.918383.10.20.22.4.1" /> & lt;id nullFlavor="NA" /> <code codeSystem="local&quot ; code="METAB" displayName="METABOLIC PANEL, BASIC" /> <statusCode code="completed" /> <component> <observation moodCode="EVN" classCode="OBS"> <templateId root="2..840.1.461044.10.20.22.4.2" /> < id nullFlavor="NA" /> <code codeSystem="local&quot ; code="K" displayName="POTASSIUM" /> < statusCode code="completed" /> <effectiveTime value=& quot;040698604242" /> <value unit="mmol/L" xsi: type="PQ" value="6.3" /> <interpretationCode codeSystem="local" code="" /> < referenceRange> <observationRange> <text> 3.5-5.3</text> </observationRange> </ referenceRange> </observation> </component> < component> <observation moodCode="EVN" classCode=" OBS"> <templateId root="2.16.840.1.385696.10.20.22.4.2& quot; /> <id nullFlavor="NA"/> <code codeSystem="local" code="eGFR" displayName="EST GFR( MDRD)" /> <statusCode code="completed" /> <effectiveTime value="855904700631" /> <value unit="mL/min" xsi:type="PQ" value="16" /> <interpretationCode codeSystem="local" code="*" /&gt ; <referenceRange> <observationRange> <text>> 59</text> </observationRange> </referenceRange> </observation> </component& gt; <component> <observationmoodCode="EVN" classCode="OBS"> <templateId root=" 2.16.840.1.423260.10.20.22.4.2" /> <id nullFlavor="NA& quot; /> <code codeSystem="local" code="GAP" displayName="ANION GAP" /> <statusCode code=" completed" /> <effectiveTime value="748300805025"/ > <value unit="mmol/L" xsi:type="PQ" value=& quot;12" /> <referenceRange> < observationRange> <text>5-15</text> </ observationRange> </referenceRange> </observation&gt ; </component> <component> <observation moodCode ="EVN"classCode="OBS"> <templateId root=&quot ;2.16.840.1.084182.10.20.22.4.2" /> <id nullFlavor="NA& quot; /> <code codeSystem="local" code="eCrCl&quot ; displayName="EST CrCl (CG)" /> <statusCode code=&quot ;completed" /> <effectiveTime value="739493907965&quot ; /> <value unit="mL/min" xsi:type="PQ" value ="25" /> <interpretationCode codeSystem="local& quot; code="*" /> <referenceRange> < observationRange> <text>> 59</text> </observationRange> </referenceRange> </ observation> </component> <component> < observation moodCode="EVN" classCode="OBS"> < templateId root="2.16.840.1.696992.10.20.22.4.2" /> < id nullFlavor="NA" /> <code codeSystem="local&quot ; code="GLU" displayName="GLUCOSE" /> < statusCode code="completed" /> <effectiveTime value=& quot;611178677437" /> <value unit="mg/dL" xsi:type ="PQ" value="198" /> <interpretationCode codeSystem="local" code="*" /> < referenceRange> <observationRange> <text>70- 99</text> </observationRange> </ referenceRange> </observation> </component> < component> <observation moodCode="EVN" classCode=" OBS"> <templateId root="2.16.840.1.879605.10.20.22.4.2& quot; /> <id nullFlavor="NA" /> <code codeSystem="local" code="CA" displayName="CALCIUM&quot ; /><statusCode code="completed" /> < effectiveTime value="634460368210" /> <value unit=&quot ;mg/dL" xsi:type="PQ" value="8.8" /> < referenceRange> <observationRange> <text> 8.5-10.1</text> </observationRange> </ referenceRange> </observation> </component> < component> <observation moodCode="EVN" classCode=" OBS"> <templateId root="2.16.840.1.837693.10.20.22.4.2& quot; /> <id nullFlavor="NA" /> <code codeSystem="local" code="BUN" displayName="BLOOD UREA NITROGEN" /> <statusCode code="completed" /> <effectiveTime value="073349104602" /> < value unit="mg/dL" xsi:type="PQ" value="60" /> <interpretationCode codeSystem="local" code="*" /> <referenceRange> <observationRange> & lt;text>7-20</text> </observationRange> </ referenceRange> </observation> </component> < component> <observation moodCode="EVN" classCode=" OBS"> <templateId root="2.16.840.1.276665.10.20.22.4.2& quot; /> <id nullFlavor="NA" /> <code codeSystem="local" code="CREAT" displayName="CREATININE " /> <statusCode code="completed" /> &lt ;effectiveTime value="751209461275" /> <value unit=& quot;mg/dL" xsi:type="PQ" value="2.9" /> & lt;interpretationCode codeSystem="local" code="*" /> <referenceRange> <observationRange> & lt;text>0.6-1.0</text> </observationRange> & lt;/referenceRange> </observation> </component> <component> <observation moodCode="EVN" classCode=" OBS"> <templateId root="2.16.840.1.123913.10.20.22.4.2& quot; /> <id nullFlavor="NA" /> <code codeSystem="local" code="NA" displayName="SODIUM" /> <statusCode code="completed" /> < effectiveTime value="594797268122" /> <value unit=&quot ;mmol/L" xsi:type="PQ" value="135" /> < referenceRange> <observationRange> <text> 135-148</text> </observationRange> </ referenceRange> </observation> </component> < component> <observation moodCode="EVN" classCode=" OBS"> <templateId root="2.16.840.1.071700.10.20.22.4.2& quot; /> <id nullFlavor="NA" /> <code codeSystem="local" code="CL" displayName="CHLORIDE&quot ; /> <statusCode code="completed" /> < effectiveTime value="072103288579" /> <value unit=" mmol/L" xsi:type="PQ" value="99" /> < referenceRange> <observationRange> <text> 98-110</text> </observationRange> </ referenceRange> </observation> </component> < component> <observation moodCode="EVN" classCode=" OBS"> <templateId root="2.16.840.1.814746.10.20.22.4.2& quot; /> <id nullFlavor="NA" /> <code codeSystem="local" code="CO2" displayName="CARBON DIOXIDE" /> <statusCode code="completed" /> <effectiveTime value="193896249850" /> < valueunit="mmol/L" xsi:type="PQ" value="24" /> <referenceRange> <observationRange> <text>21-32</text> </observationRange> </referenceRange> </observation> </component> & lt;/organizer> </entry> <entry> <organizer moodCode=&quot ;EVN"classCode="BATTERY"> <templateId root=" 2.16.840.1.344020.10.20.22.4.1" /> <id nullFlavor="NA&quot ; /> <code codeSystem="local" code="CBC" displayName="CBC" /> <statusCode code="completed&quot ; /> <component> <observation moodCode="EVN" classCode="OBS"> <templateId root=" 2.16.840.1.732493.10.20.22.4.2" /> <id nullFlavor="NA& quot; /> <code codeSystem="local" code="MCH" displayName="MEAN CELL HGB" /> <statusCode code=" completed" /> <effectiveTime value="052569037670" /> <value unit="pg" xsi:type="PQ" value="28.2& quot; /> <referenceRange> <observationRange> <text>27.0-33.0</text> </ observationRange> </referenceRange> </observation> </component> <component> <observation moodCode=& quot;EVN" classCode="OBS"> <templateId root=" 2.16.840.1.547960.10.20.22.4.2" /> <id nullFlavor="NA& quot; /> <code codeSystem="local" code="MCHC&quot ; displayName="MEAN CELL HGB CONCENTRATION" /> < statusCode code="completed" /> <effectiveTime value=& quot;358386915188" /> <value unit="g/dL" xsi:type= "PQ" value="30.7" /> <interpretationCode codeSystem="local" code="*" /> < referenceRange> <observationRange> <text> 32.0-37.0</text> </observationRange> </ referenceRange> </observation> </component> < component> <observation moodCode="EVN" classCode=" OBS"> <templateId root="2.16.840.1.696969.10.20.22.4.2& quot; /> <id nullFlavor="NA" /><code codeSystem=& quot;local" code="MCV" displayName="MEAN CELL VOLUME" / > <statusCode code="completed" /> < effectiveTime value="700985943947" /> <value unit=&quot ;fl" xsi:type="PQ" value="91.9" /> < referenceRange> <observationRange> <text> 80.0-100.0</text> </observationRange> </ referenceRange> </observation> </component> < component> <observation moodCode="EVN" classCode=" OBS"> <templateId root="2.16.840.1.177439.10.20.22.4.2& quot; /> <id nullFlavor="NA" /> <code codeSystem="local" code="RBC" displayName="RED BLOOD CELL" /> <statusCode code="completed" /> <effectiveTime value="377240419987" /> <value unit="m/cumm" xsi:type="PQ" value="3.69" /> <interpretationCode codeSystem="local" code="*" /& gt; <referenceRange> <observationRange> <text>4.00-6.00</text> </observationRange> </referenceRange> </observation> </component& gt; <component> <observation moodCode="EVN" classCode="OBS"> <templateId root=" 2.16.840.1.060832.10.20.22.4.2" /> <id nullFlavor="NA& quot; /> <code codeSystem="local" code="RDW" displayName="RED CELL DISTRIBUTION WIDTH" /> < statusCode code="completed" /> <effectiveTime value=& quot;924761252374" /> <value unit="%" xsi:type=& quot;PQ" value="16.7" /> <interpretationCode codeSystem=& quot;local" code="*" /> <referenceRange> <observationRange> <text>11.0-15.6</text> </observationRange> </referenceRange> </ observation> </component> <component> < observation moodCode="EVN" classCode="OBS"> < templateId root="2.16.840.1.726700.10.20.22.4.2" /> < id nullFlavor="NA" /> <code codeSystem="local&quot ; code="WBC" displayName="WHITE BLOOD CELL" /> & lt;statusCode code="completed" /> <effectiveTime value= "099519361295" /> <value unit="k/cumm" xsi: type="PQ" value="23.0" /> < interpretationCode codeSystem="local" code="*" /> <referenceRange> <observationRange> < text>5.0-10.0</text> </observationRange> < /referenceRange> </observation> </component> &lt ;component> <observation moodCode="EVN" classCode=" OBS"> <templateId root="2.16.840.1.779835.10.20.22.4.2& quot; /> <id nullFlavor="NA" /> <code codeSystem="local" code="HGBT" displayName="HEMOGLOBIN& quot; /> <statusCode code="completed" /> & lt;effectiveTime value="815831234969" /> <value unit=& quot;gm/dL" xsi:type="PQ" value="10.4" /> & lt;interpretationCode codeSystem="local" code="*" /> <referenceRange> <observationRange> & lt;text>12.0-16.0</text> </observationRange> </referenceRange> </observation> </component> <component> <observationmoodCode="EVN" classCode=& quot;OBS"> <templateId root=" 2.16.840.1.202782.10.20.22.4.2" /> <id nullFlavor="NA& quot; /> <code codeSystem="local" code="HCTT&quot ; displayName="HEMATOCRIT" /> <statusCode code=" completed" /> <effectiveTime value="920612753654" /> <value unit="%" xsi:type="PQ" value="33.9"/> <interpretationCode codeSystem=" local" code="*" /><referenceRange> < observationRange> <text>37.0-47.0</text> </observationRange> </referenceRange> </ observation> </component> <component> < observation moodCode="EVN" classCode="OBS"> < templateId root="2.16.840.1.801581.10.20.22.4.2" /> < id nullFlavor="NA" /> <code codeSystem="local&quot ; code="PLTT" displayName="PLATELET COUNT" /> & lt;statusCode code="completed" /> <effectiveTime value= "804731482123" /> <value unit="k/cumm" xsi: type="PQ" value="367" /> <referenceRange> <observationRange> <text>150-450</text& gt; </observationRange> </referenceRange> </ observation> </component> </organizer> </entry> & lt;entry> <organizer moodCode="EVN" classCode="BATTERY& quot;> <templateId root="2.16.840.1.236831.10.20.22.4.1" /& gt; <id nullFlavor="NA" /> <code codeSystem=" local" code="PT" displayName="PROTHROMBIN TIME WITH INR&quot ; /> <statusCode code="completed" /> <component& gt; <observation moodCode="EVN" classCode="OBS"&gt ; <templateId root="2.16.840.1.523082.10.20.22.4.2" /> <id nullFlavor="NA" /> <code codeSystem=& quot;local" code="INRX" displayName="INTERNATIONAL NORMAL RATIO" /> <statusCodecode="completed" /> <effectiveTime value="955114727330" /> <value unit=& quot;" xsi:type="PQ" value="1.3" /> < interpretationCode codeSystem="local" code="*" /> <referenceRange> <observationRange> < text>0.9-1.1</text> </observationRange> </ referenceRange> </observation> </component> < component> <observation moodCode="EVN" classCode=" OBS"> <templateId root="2.16.840.1.193001.10.20.22.4.2& quot; /> <id nullFlavor="NA" /> <code codeSystem="local" code="PTPAT" displayName=" PROTHROMBIN TIME" /> <statusCode code="completed" /> <effectiveTime value="[id number]" /> & lt;value unit="sec" xsi:type="PQ" value="14.3" /& gt; <interpretationCode codeSystem="local" code="*& quot; /> <referenceRange> <observationRange> <text>10.0-12.8</text> </ observationRange> </referenceRange> </observation> & lt;/component> </organizer> </entry> <entry> < organizer moodCode="EVN" classCode="BATTERY"> < templateId root="[id number]" /> <id nullFlavor="NA" /> <code codeSystem="local" code= "PTT" displayName="PARTIAL THROMBOPLASTIN TIME" /> & lt;statusCode code="completed" /> <component> &lt ;observation moodCode="EVN" classCode="OBS"> < templateId root="2.16.840.1.717637.10.20.22.4.2" /> < id nullFlavor="NA" /> <code codeSystem="local&quot ; code="PTT" displayName="PARTIAL THROMBOPLASTIN TIME" /&gt ; <statusCode code="completed" /> < effectiveTime value="011431665830" /> <value unit=&quot ;sec" xsi:type="PQ" value="32" /> < referenceRange> <observationRange> <text> 25-37</text> </observationRange> </ referenceRange> </observation> </component> </ organizer> </entry> <entry> <organizer moodCode="EVN " classCode="BATTERY"> <templateId root=" 2.16.840.1.243906.10.20.22.4.1" /> <id nullFlavor="NA&quot ; /> <code codeSystem="local" code="CBC" displayName="CBC" /> <statusCode code="completed&quot ; /> <component> <observation moodCode="EVN" classCode="OBS"> <templateId root=" 2.16.840.1.818461.10.20.22.4.2" /> <id nullFlavor="NA& quot; /> <code codeSystem="local" code="MCH" displayName="MEAN CELL HGB" /> <statusCode code=" completed" /> <effectiveTime value="785725606759" /> <value unit="pg" xsi:type="PQ" value=&quot ;28.2" /> <referenceRange> < observationRange> <text>27.0-33.0</text> </ observationRange> </referenceRange> </observation&gt ; </component> <component> <observation moodCode ="EVN" classCode="OBS"> <templateId root=& quot;2.16.840.1.572218.10.20.22.4.2" /> <id nullFlavor=&quot ;NA" /> <code codeSystem="local" code="MCHC& quot; displayName="MEAN CELL HGB CONCENTRATION" /> < statusCode code="completed" /> <effectiveTime value=& quot;793718550070" /> <value unit="g/dL" xsi:type= "PQ" value="30.7" /> <interpretationCode codeSystem="local" code="*" /> < referenceRange> <observationRange> <text> 32.0-37.0</text> </observationRange> </ referenceRange> </observation> </component> < component> <observation moodCode="EVN" classCode=" OBS"> <templateId root="2.16.840.1.390437.10.20.22.4.2& quot; /> <id nullFlavor="NA" /> <code codeSystem="local" code="MCV" displayName="MEAN CELL VOLUME" /> <statusCode code="completed" /> <effectiveTime value="151567020772" /> <value unit="fl" xsi:type="PQ" value="91.9" /> < referenceRange> <observationRange> <text> 80.0-100.0</text> </observationRange> </ referenceRange> </observation> </component> < component> <observation moodCode="EVN" classCode=" OBS"> <templateId root="2.16.840.1.612155.10.20.22.4.2& quot; /> <id nullFlavor="NA" /> <code codeSystem="local" code="RBC" displayName="RED BLOOD CELL" /> <statusCode code="completed" /> <effectiveTime value="780406379956" /> <value unit="m/cumm" xsi:type="PQ" value="3.69" /> <interpretationCode codeSystem="local" code="*" /& gt; <referenceRange> <observationRange> <text>4.00-6.00</text> </observationRange> </referenceRange> </observation> </component& gt; <component> <observation moodCode="EVN" classCode="OBS"> <templateId root=" 2.16.840.1.903259.10.20.22.4.2" /> <id nullFlavor="NA& quot; /> <code codeSystem="local" code="RDW" displayName="RED CELL DISTRIBUTION WIDTH" /> < statusCode code="completed" /> <effectiveTime value=& quot;704394843108" /> <value unit="%" xsi: type="PQ" value="16.7" /> < interpretationCode codeSystem="local" code="*" /> <referenceRange> <observationRange> < text>11.0-15.6</text> </observationRange> &lt ;/referenceRange> </observation> </component> & lt;component> <observation moodCode="EVN" classCode=&quot ;OBS"> <templateId root="2.16.840.1.424157.10.20.22.4.2" /& gt; <id nullFlavor="NA" /> <code codeSystem ="local" code="WBC" displayName="WHITE BLOOD CELL&quot ; /> <statusCode code="completed" /> < effectiveTime value="163853024179" /> <value unit=&quot ;k/cumm" xsi:type="PQ" value="23.0" /> < interpretationCode codeSystem="local" code="*" /> <referenceRange> <observationRange> <text >5.0-10.0</text> </observationRange> </ referenceRange> </observation> </component> < component> <observation moodCode="EVN" classCode=" OBS"> <templateId root="2.16.840.1.236073.10.20.22.4.2& quot; /> <id nullFlavor="NA" /> <code codeSystem="local" code="HGBT" displayName="HEMOGLOBIN& quot; /> <statusCode code="completed" /> < effectiveTime value="358223948023" /> <value unit=&quot ;gm/dL" xsi:type="PQ" value="10.4" /> < interpretationCode codeSystem="local" code="*" /> & lt;referenceRange> <observationRange> <text& gt;12.0-16.0</text> </observationRange> </ referenceRange> </observation> </component> < component> <observation moodCode="EVN" classCode=" OBS"> <templateId root="2.16.840.1.324472.10.20.22.4.2& quot; /> <id nullFlavor="NA" /> <code codeSystem="local" code="HCTT" displayName="HEMATOCRIT& quot; /> <statusCode code="completed" /> & lt;effectiveTime value="900658948982" /> <value unit=& quot;%" xsi:type="PQ" value="33.9" /> <interpretationCode codeSystem="local" code="*" /&gt ; <referenceRange> <observationRange> <text>37.0-47.0</text> </observationRange> </referenceRange> </observation> </component&gt ; <component> <observation moodCode="EVN" classCode="OBS"> <templateId root=" 2.16.840.1.657148.10.20.22.4.2" /> <id nullFlavor="NA& quot; /> <code codeSystem="local" code="PLTT&quot ; displayName="PLATELET COUNT" /> <statusCode code=& quot;completed" /> <effectiveTime value="353228310060& quot; /> <value unit="k/cumm" xsi:type="PQ" value="367" /> <referenceRange><observationRange& gt; <text>150-450</text> </ observationRange> </referenceRange> </observation&gt ; </component> </organizer> </entry> <entry> <organizer moodCode="EVN" classCode="BATTERY"> <templateId root="2.16.840.1.308851.10.20.22.4.1" /> < id nullFlavor="NA" /> <code codeSystem="local" code="PT" displayName="PROTHROMBIN TIME WITH INR" /> <statusCode code="completed"/> <component> & lt;observation moodCode="EVN" classCode="OBS"> & lt;templateId root="2.16.840.1.130830.10.20.22.4.2" /> &lt ;id nullFlavor="NA" /> <code codeSystem="local& quot; code="INRX" displayName="INTERNATIONAL NORMAL RATIO" / > <statusCode code="completed" /> < effectiveTime value="602027937090" /> <value unit=&quot ;" xsi:type="PQ" value="1.3" /> < interpretationCode codeSystem="local" code="*" /> <referenceRange> <observationRange> < text>0.9-1.1</text> </observationRange> </ referenceRange> </observation> </component> < component> <observation moodCode="EVN" classCode=" OBS"> <templateId root="2.16.840.1.270633.10.20.22.4.2& quot; /> <id nullFlavor="NA" /> <code codeSystem="local" code="PTPAT" displayName=" PROTHROMBIN TIME" /> <statusCode code="completed" /> <effectiveTime value="787283659981" /> & lt;value unit="sec" xsi:type="PQ" value="14.3" /& gt; <interpretationCode codeSystem="local" code="*& quot; /> <referenceRange> <observationRange>& lt;text>10.0-12.8</text> </observationRange> </referenceRange> </observation> </component> & lt;/organizer> </entry> <entry> <organizer moodCode=&quot ;EVN" classCode="BATTERY"> <templateId root=" 2.16.840.1.518027.10.20.22.4.1" /> <id nullFlavor="NA&quot ; /> <code codeSystem="local" code="PTT" displayName="PARTIAL THROMBOPLASTIN TIME" /> <statusCode code="completed" /> <component> <observation moodCode="EVN" classCode="OBS"> <templateId root="2.16.840.1.217338.10.20.22.4.2" /> <id nullFlavor ="NA" /> <code codeSystem="local" code="PTT " displayName="PARTIAL THROMBOPLASTIN TIME" /> < statusCode code="completed" /> <effectiveTime value=& quot;837930595453" /> <value unit="sec" xsi:type=& quot;PQ" value="32" /> <referenceRange> <observationRange> <text>25-37</text> </observationRange> </referenceRange> </ observation> </component> </organizer> </entry> & lt;entry> <organizer moodCode="EVN" classCode="BATTERY& quot;> <templateId root="2.16.840.1.352369.10.20.22.4.1" /& gt; <id nullFlavor="NA" /> <code codeSystem=" local" code="K" displayName="POTASSIUM" /> < statusCode code="completed" /> <component> < observation moodCode="EVN" classCode="OBS"> < templateId root="2.16.840.1.678691.10.20.22.4.2" /> < id nullFlavor="NA" /> <code codeSystem="local&quot ; code="K" displayName="POTASSIUM" /> <statusCode code ="completed" /> <effectiveTime value="158624932046 " /> <value unit="mmol/L" xsi:type="PQ" value="6.3"/> <interpretationCode codeSystem=" local" code="" /> <referenceRange> < observationRange> <text>3.5-5.3</text> & lt;/observationRange> </referenceRange> </ observation> </component> </organizer> </entry> & lt;entry> <organizer moodCode="EVN" classCode="BATTERY& quot;> <templateId root="2.16.840.1.261323.10.20.22.4.1" /& gt; <id nullFlavor="NA" /> <code codeSystem=" local" code="K" displayName="POTASSIUM" /> < statusCode code="completed" /> <component> < observation moodCode="EVN" classCode="OBS"> < templateId root="2.16.840.1.893721.10.20.22.4.2" /> < id nullFlavor="NA" /> <code codeSystem="local&quot ; code="K" displayName="POTASSIUM" /> < statusCode code="completed" /> <effectiveTime value=& quot;151938530689" /> <value unit="mmol/L" xsi: type="PQ" value="6.3" /> <interpretationCode codeSystem="local" code="" /> < referenceRange> <observationRange> <text> 3.5-5.3</text> </observationRange> </ referenceRange> </observation> </component> </ organizer> </entry> <entry> <organizer moodCode="EVN " classCode="BATTERY"> <templateId root=" 2.16.840.1.483025.10.20.22.4.1" /> <idnullFlavor="NA" /> <code codeSystem="local" code="ABG" displayName="ARTERIAL BLOOD GAS" /> <statusCode code=" completed" /> <component> <observation moodCode=" EVN" classCode="OBS"> <templateId root=" 2.16.840.1.018488.10.20.22.4.2" /> <id nullFlavor="NA& quot; /> <code codeSystem="local" code="TED" displayName="ABG BASE EXCESS" /> <statusCode code=&quot ;completed" /> <effectiveTime value="749260958918&quot ; /> <value unit="meq/L" xsi:type="PQ" value= "-4.4" /> <interpretationCode codeSystem="local& quot; code="*" /> <referenceRange> < observationRange> <text>-3.0-3.0</text> & lt;/observationRange> </referenceRange> </ observation> </component> <component> < observation moodCode="EVN" classCode="OBS"> < templateId root="2.16.840.1.856592.10.20.22.4.2" /> < id nullFlavor="NA" /> <code codeSystem="local" code=& quot;HCO3A" displayName="ABG BICARBONATE" /> < statusCode code="completed" /> <effectiveTime value=& quot;544214617334" /> <value unit="meq/L" xsi:type ="PQ" value="21.9" /> <interpretationCode codeSystem="local" code="*"/> <referenceRange > <observationRange> <text>23.0-28.0</ text> </observationRange> </referenceRange> </observation> </component> <component> <observation moodCode="EVN" classCode="OBS"> <templateId root="2.16.840.1.487313.10.20.22.4.2" /> <id nullFlavor="NA" /> <code codeSystem=" local" code="PCO2A" displayName="ABG PCO2" /> <statusCode code="completed" /> <effectiveTime value="019065995897" /> <value unit="mmHg" xsi:type= "PQ" value="45" /> <referenceRange> <observationRange> <text>34-45</text> </observationRange> </referenceRange> </ observation> </component> <component> < observation moodCode="EVN" classCode="OBS"> < templateId root="2.16.840.1.259389.10.20.22.4.2" /> <id nullFlavor="NA" /> <code codeSystem="local" code="PHAX" displayName="ABG PH" /> < statusCode code="completed" /> <effectiveTime value=& quot;263807565968" /> <value unit="" xsi:type=& quot;PQ" value="7.30" /> <interpretationCode codeSystem="local" code="*" /> < referenceRange> <observationRange> <text> 7.35-7.45</text> </observationRange> </referenceRange& gt; </observation> </component> <component> <observation moodCode="EVN" classCode="OBS"> <templateIdroot="2.16.840.1.417047.10.20.22.4.2" /> <id nullFlavor="NA" /> <code codeSystem=" local" code="PO2A" displayName="ABG PO2" /> <statusCode code="completed" /> <effectiveTime value="366679779645" /> <value unit="mmHg" xsi:type="PQ" value="89" /> <referenceRange& gt; <observationRange> <text>75-100</text > </observationRange> </referenceRange> </observation> </component> <component> < observation moodCode="EVN" classCode="OBS"> < templateId root="2.16.840.1.685670.10.20.22.4.2" /> < id nullFlavor="NA" /> <code codeSystem="local&quot ; code="SATA" displayName="ABG O2 SATURATION" />< statusCode code="completed" /> <effectiveTime value=& quot;350643188303" /> <value unit="%" xsi: type="PQ" value="96" /> <referenceRange> <observationRange> <text>93-100</text&gt ; </observationRange> </referenceRange> & lt;/observation> </component> </organizer> </entry&gt ; <entry> <organizer moodCode="EVN" classCode=" BATTERY"> <templateId root="2.16.840.1.099962.10.20.22.4.1& quot; /> <id nullFlavor="NA" /> <code codeSystem ="local" code="ABG" displayName="ARTERIAL BLOOD GAS& quot; /> <statusCode code="completed" /> <component& gt; <observation moodCode="EVN" classCode="OBS"&gt ; <templateId root="2.16.840.1.518723.10.20.22.4.2" /> <id nullFlavor="NA" /> <code codeSystem=& quot;local" code="TED" displayName="ABG BASE EXCESS" /& gt; <statusCode code="completed" /> < effectiveTime value="594366564044"/> <value unit=" meq/L" xsi:type="PQ" value="-4.4" /> < interpretationCode codeSystem="local" code="*" /> <referenceRange> <observationRange> < text>-3.0-3.0</text> </observationRange> </ referenceRange> </observation> </component> < component> <observation moodCode="EVN" classCode=" OBS"> <templateId root="2.16.840.1.542298.10.20.22.4.2& quot; /> <id nullFlavor="NA" /> <code codeSystem="local" code="HCO3A" displayName="ABG BICARBONATE" /> <statusCode code="completed" /&gt ; <effectiveTime value="915490113266" /> < value unit="meq/L" xsi:type="PQ" value="21.9" /&gt ; <interpretationCode codeSystem="local" code="*&quot ; /> <referenceRange> <observationRange> & lt;text>23.0-28.0</text> </observationRange> </referenceRange> </observation> </component> <component> <observation moodCode="EVN" classCode=& quot;OBS"> <templateId root="2.16.840.1.881598.10.20.22.4.2& quot; /> <id nullFlavor="NA" /> <code codeSystem="local" code="PCO2A" displayName="ABG PCO2& quot; /> <statusCode code="completed" /> & lt;effectiveTime value="013739904157" /> <value unit=& quot;mmHg" xsi:type="PQ" value="45" /> < referenceRange> <observationRange> <text> 34-45</text> </observationRange> </ referenceRange> </observation> </component> < component> <observation moodCode="EVN" classCode=" OBS"> <templateId root="2.16.840.1.008421.10.20.22.4.2& quot; /> <id nullFlavor="NA" /> <code codeSystem="local" code="PHAX" displayName="ABG PH&quot ; /> <statusCode code="completed" /> < effectiveTime value="081109491715" /> <value unit=&quot ;" xsi:type="PQ" value="7.30" /> < interpretationCode codeSystem="local" code="*" /> < referenceRange> <observationRange> <text> 7.35-7.45</text> </observationRange> </ referenceRange> </observation> </component> < component> <observation moodCode="EVN" classCode=" OBS"> <templateId root="2.16.840.1.892883.10.20.22.4.2& quot;/> <id nullFlavor="NA" /> <code codeSystem="local"code="PO2A" displayName="ABG PO2&quot ; /> <statusCode code="completed" /> < effectiveTime value="912594761586" /> <value unit=&quot ;mmHg" xsi:type="PQ" value="89" /> < referenceRange> <observationRange> <text> 75-100</text> </observationRange> </ referenceRange> </observation> </component> < component> <observation moodCode="EVN" classCode=" OBS"> <templateId root="2.16.840.1.392521.10.20.22.4.2& quot; /> <id nullFlavor="NA" /> <code codeSystem="local" code="SATA" displayName="ABG O2 SATURATION" /> <statusCode code="completed" /> <effectiveTime value="938881270650" /> < value unit="%" xsi:type="PQ" value="96" /& gt; <referenceRange> <observationRange> < text>93-100</text> </observationRange> </ referenceRange> </observation> </component> </ organizer> </entry> <entry> <organizer moodCode="EVN " classCode="BATTERY"> <templateId root=" 2.16.840.1.162498.10.20.22.4.1" /> <id nullFlavor="NA&quot ; /> <code codeSystem="local" code="UC" displayName="URINE CULTURE" /> <statusCode code=" completed" /><component> <observation moodCode="EVN " classCode="OBS"> <templateId root=" 2.16.840.1.516096.10.20.22.4.2" /> <id nullFlavor="NA& quot; /> <code codeSystem="local" code="MB" displayName="Microbiology" /> <statusCode code=" completed" /> <effectiveTime value="952553103625" /> <value xsi:type="ST" value="<pre> <b>URINE CULTURE</b> See BelowURINE CULTURE(F) Aarti Date/Time: 04/03/2017 10:00 Mara Date/ Time: // :SOURCE: URINESPEC DESC: CLEAN CATCHSee BelowURINE CULTURE(F) Aarti Date/Time: 04/03/2017 10:00 Mara Date /Time: 04/06/2017 09:37SOURCE: URINESPEC DESC: CLEAN CATCHTREATMENT OF ASYMPTOMATIC BACTERIURIA IS NOT USUALLYCLINICALLY INDICATED.Organism #1 ENTEROBACTER CLOACAE COMPLEXCOLONY COUNT >100,000 CFU/ML COMMENTS ESBL NOT CONFIRMED COMMENT 2 CARBAPENEMASERESISTANCE NOT CONFIRMED InterpCEFEPIME VITEK <=1 RCIPROFLOXACIN VITEK <=0.25 SGENTAMICIN VITEK <=1 SMEROPENEM VITEK <=0.25 RNITROFURANTOIN VITEK64 IPIPERACILLIN/TAZOBZCTAM VITEK 32 RTRIMETH/SULFA VITEK <=20 [facility] [place] [address]</pre>" /> <referenceRange> <observationRange> <text /> </ observationRange> </referenceRange> </observation&gt ; </component> </organizer> </entry> <entry> <organizer moodCode="EVN" classCode="BATTERY"> <templateId root="2.16.840.1.219918.10.20.22.4.1"/> < id nullFlavor="NA" /> <code codeSystem="local" code="UA" displayName="URINALYSIS, ROUTINE" /> < statusCode code="completed" /> <component> < observation moodCode="EVN" classCode="OBS"> < templateId root="2.16.840.1.231772.10.20.22.4.2" /><id nullFlavor="NA" /> <code codeSystem="local" code="LEUESU" displayName="UA LEUKOCYTE ESTERASE DIPSTICK" / > <statusCode code="completed" /> < effectiveTime value="373731528475" /> <value unit=&quot ;" xsi:type="PQ" value="2+" /> < interpretationCode codeSystem="local" code="*" /> <referenceRange> <observationRange> <text> NEGATIVE</text> </observationRange> </ referenceRange> </observation> </component> < component> <observation moodCode="EVN" classCode=" OBS"> <templateId root="2.16.840.1.990777.10.20.22.4.2&quot ; /> <id nullFlavor="NA" /> <code codeSystem="local" code="NITRIU" displayName="UA NITRITE DIPSTICK" /> <statusCode code="completed" /> <effectiveTime value="058496445406" /> < value unit="" xsi:type="PQ" value="NEGATIVE" /&gt ; <referenceRange> <observationRange> <text>NEGATIVE</text> </observationRange> </referenceRange> </observation> </component&gt ; <component> <observation moodCode="EVN" classCode="OBS"> <templateId root=" 2.16.840.1.760684.10.20.22.4.2" /> <id nullFlavor="NA& quot; /> <code codeSystem="local" code="PROTEIU& quot; displayName="UA PROTEIN DIPSTICK" /> <statusCode code="completed" /> <effectiveTime value=" 727834665971" /> <value unit="" xsi:type="PQ& quot; value="1+" /> <interpretationCode codeSystem=& quot;local" code="*" /> <referenceRange> <observationRange> <text>NEGATIVE</text> </observationRange> </referenceRange> </ observation> </component> <component> < observation moodCode="EVN" classCode="OBS"> < templateId root="2.16.840.1.989435.10.20.22.4.2" /> < id nullFlavor="NA" /> <code codeSystem="local&quot ; code="DGLUU" displayName="UA GLUCOSE DIPSTICK" /> <statusCode code="completed" /> <effectiveTime value="930827452559" /> <value unit="" xsi: type="PQ" value="NEGATIVE" /> <referenceRange > <observationRange> <text>NEGATIVE</ text> </observationRange> </referenceRange> </observation> </component> <component> <observation moodCode="EVN" classCode="OBS"> <templateId root="2.16.840.1.059524.10.20.22.4.2" /> <id nullFlavor="NA" /> <code codeSystem=" local" code="KETONU" displayName="UA KETONE DIPSTICK" / > <statusCode code="completed" /> < effectiveTime value="165334308087" /> <value unit=&quot ;" xsi:type="PQ" value="TRACE" /> < interpretationCode codeSystem="local" code="*" /> <referenceRange> <observationRange> < text>NEGATIVE</text> </observationRange> < /referenceRange> </observation> </component> &lt ;component> <observation moodCode="EVN" classCode=" OBS"> <templateId root="2.16.840.1.092582.10.20.22.4.2& quot; /> <id nullFlavor="NA" /> <code codeSystem="local" code="UROBILU" displayName="UA UROBILINOGEN DIPSTICK" /> <statusCode code="completed& quot; /> <effectiveTime value="060690982030" /> & lt;value unit="" xsi:type="PQ" value="NORMAL" /&gt ; <referenceRange> <observationRange> <text>NORMAL</text> </observationRange> & lt;/referenceRange> </observation></component> < component> <observation moodCode="EVN" classCode=" OBS"> <templateId root="2.16.840.1.560260.10.20.22.4.2& quot; /> <id nullFlavor="NA" /> <code codeSystem="local" code="BILU" displayName="UA BILIRUBIN DIPSTICK" /> <statusCode code="completed&quot ; /> <effectiveTime value="155833210445" /> <value unit="" xsi:type="PQ" value="NEGATIVE&quot ; /> <referenceRange> <observationRange> <text>NEGATIVE</text> </observationRange> & lt;/referenceRange> </observation> </component> <component> <observation moodCode="EVN" classCode=& quot;OBS"> <templateId root=" 2.16.840.1.885953.10.20.22.4.2" /> <id nullFlavor="NA& quot; /> <code codeSystem="local" code="HILDA" displayName="UA BLOOD DIPSTICK" /> <statusCode code=& quot;completed" /> <effectiveTime value="826481675017& quot; /> <value unit="" xsi:type="PQ" value=& quot;TRACE" /> <interpretationCode codeSystem="local& quot; code="*" /> <referenceRange> < observationRange> <text>NEGATIVE</text> & lt;/observationRange> </referenceRange> </observation&gt ; </component> <component> <observation moodCode ="EVN" classCode="OBS"> <templateId root=& quot;2.16.840.1.356304.10..22.4.2" /> <id nullFlavor=&quot ;NA" /> <code codeSystem="local" code="SPGRU& quot; displayName="UA SPECIFIC GRAVITY" /> <statusCode code="completed" /> <effectiveTime value=" 056912809738" /> <value unit="" xsi:type="PQ& quot; value="1.015" /> <referenceRange> & lt;observationRange> <text>1.015-1.025</text> </observationRange> </referenceRange> </ observation> </component> <component> <observation moodCode="EVN" classCode="OBS"> <templateId root="2.16.840.1.156186.10.20.22.4.2" /> <id nullFlavor ="NA" /> <code codeSystem="local" code="CLEMENTINE& quot; displayName="UR PH" /> <statusCode code=" completed" /> <effectiveTime value="551711300907" /> <value unit="" xsi:type="PQ" value=" 5.0" /> <referenceRange> <observationRange& gt; <text>5.0-7.0</text> </ observationRange> </referenceRange> </observation&gt ; </component> </organizer> </entry> <entry> <organizer moodCode="EVN" classCode="BATTERY"> <templateId root="2.16.840.1.955081.10.20.22.4.1" /> < id nullFlavor="NA" /> <code codeSystem="local" code="UAMICRO" displayName="UA MICROSCOPIC" /> < statusCode code="completed" /> <component> < observation moodCode="EVN" classCode="OBS"> < templateId root="2.16.840.1.833861.10.20.22.4.2" /> < id nullFlavor="NA" /> <code codeSystem="local&quot ; code="BACU" displayName="UA BACTERIA" /> < statusCode code="completed" /> <effectiveTime value=& quot;077073703931" /> <value unit="" xsi:type=& quot;PQ" value="2+" /><interpretationCode codeSystem=" local" code="*" /> <referenceRange> <observationRange> <text>NEGATIVE</text> </ observationRange> </referenceRange> </observation&gt ; </component> <component> <observation moodCode ="EVN" classCode="OBS"> <templateId root=& quot;2.16.840.1.748219.10.20.22.4.2" /> <id nullFlavor=&quot ;NA" /> <code codeSystem="local" code="EPIU& quot; displayName="UA EPITHELIAL CELLS" /> <statusCode code="completed" /> <effectiveTime value=" 936433951727" /> <value unit="epi/hpf" xsi:type=& quot;PQ" value="1+" /> <referenceRange> <observationRange> <text>0 - 1+</text> </observationRange> </referenceRange> </ observation> </component> <component> < observation moodCode="EVN" classCode="OBS"> < templateId root="[id number]" /> < id nullFlavor="NA" /> <code codeSystem="local&quot ; code="RBCU" displayName="UA RBC" /> < statusCode code="completed" /> <effectiveTime value=& quot;[id number]" /> <value unit="rbc/hpf" xsi: type="PQ" value="0-3" /> <referenceRange> <observationRange> <text>0 - 3</text&gt ; </observationRange> </referenceRange> </ observation> </component> <component> < observation moodCode="EVN" classCode="OBS"> < templateIdroot="[id number]" /> <id nullFlavor="NA" /> <code codeSystem="local" code="UAVOL" displayName="UA VOLUME FOR EXAM" /> <statusCode code="completed" /> <effectiveTime value="521764709225" /> <value unit="mL" xsi: type="PQ" value="12.0" /> <referenceRange&gt ; <observationRange> <text>(12mL STD)</text& gt; </observationRange> </referenceRange> </observation> </component> <component> &lt ;observation moodCode="EVN" classCode="OBS"> &lt ;templateId root="2.16.840.1.860940.10.20.22.4.2" /> < id nullFlavor="NA" /><code codeSystem="local" code=& quot;WBCU" displayName="UA WBC" /> <statusCode code=& quot;completed" /> <effectiveTime value="481114299627& quot; /> <value unit="wbc/hpf" xsi:type="PQ" value="20-50" /> <interpretationCode codeSystem=" local" code="*" /> <referenceRange> &lt ;observationRange> <text>0 - 5</text> &lt ;/observationRange> </referenceRange> </observation& gt; </component> <component> <observation moodCode="EVN"classCode="OBS"> <templateId root="2.16.840.1.937457.10.20.22.4.2" /> <id nullFlavor ="NA" /> <code codeSystem="local" code=" WBCCLUMPS" displayName="WBC CLUMPS" /> < statusCode code="completed" /> <effectiveTime value=& quot;669920402545" /> <value unit="" xsi:type=& quot;PQ" value="PRESENT" /> <interpretationCode codeSystem="local" code="*" /> < referenceRange> <observationRange> <text> NEGATIVE</text> </observationRange> </ referenceRange> </observation> </component> </ organizer> </entry> <entry> <organizer moodCode="EVN " classCode="BATTERY"> <templateId root=" 2.16.840.1.021244.10.20.22.4.1" /> <id nullFlavor="NA&quot ; /> <code codeSystem="local" code="UC" displayName="URINE CULTURE" /> <statusCode code=" completed" /> <component> <observation moodCode=& quot;EVN" classCode="OBS"> <templateId root=" 2.16.840.1.430516.10.20.22.4.2" /> <id nullFlavor="NA& quot; /> <code codeSystem="local" code="MB" displayName="Microbiology" /> <statusCode code=" completed" /> <effectiveTime value="521534694610" /> <value xsi:type="ST" value="<pre>&lt ;b>URINE CULTURE</b> See BelowURINE CULTURE(F) Aarti Date/Time: 04/03/2017 10:00 Mara Date/Time : // :SOURCE: URINESPEC DESC: CLEAN CATCHSee BelowURINE CULTURE(F) Aarti Date/Time: 04/03/2017 10:00 Mara Date/ Time: 04/06/2017 09:37SOURCE: URINESPEC DESC: CLEAN CATCHTREATMENT OF ASYMPTOMATIC BACTERIURIA IS NOT USUALLYCLINICALLY INDICATED.Organism #1 ENTEROBACTER CLOACAE COMPLEXCOLONY COUNT >100,000 CFU/ML COMMENTS ESBL NOT CONFIRMED COMMENT 2 CARBAPENEMASE RESISTANCE NOT CONFIRMED InterpCEFEPIME VITEK <=1 RCIPROFLOXACIN VITEK <=0.25 SGENTAMICIN VITEK &amp ;lt;=1 SMEROPENEM VITEK <=0.25 RNITROFURANTOIN VITEK 64 IPIPERACILLIN/TAZOBZCTAM VITEK 32 RTRIMETH/SULFA VITEK <=20 [facility] [place] [place] [address]</pre>" /> < referenceRange> <observationRange> <text /& gt; </observationRange> </referenceRange> </ observation> </component> </organizer> </entry> & lt;entry> <organizer moodCode="EVN" classCode="BATTERY& quot;> <templateId root="2.16.840.1.579803.10.20.22.4.1" /& gt; <id nullFlavor="NA" /> <code codeSystem=" local"code="UA" displayName="URINALYSIS, ROUTINE" /&gt ; <statusCode code="completed" /> <component> <observation moodCode="EVN" classCode="OBS"> <templateId root="2.16.840.1.544456.10.20.22.4.2" /> <id nullFlavor="NA" /> <code codeSystem=" local" code="LEUESU" displayName="UA LEUKOCYTE ESTERASE DIPSTICK" /> <statusCode code="completed" /> <effectiveTime value="126720513522" /> <value unit="" xsi:type="PQ" value="2+" /> & lt;interpretationCode codeSystem="local" code="*" /> <referenceRange> <observationRange> & lt;text>NEGATIVE</text> </observationRange> & lt;/referenceRange> </observation> </component> <component> <observation moodCode="EVN" classCode=& quot;OBS"> <templateId root=" 2.16.840.1.805700.10..22.4.2" /> <id nullFlavor="NA& quot; /> <code codeSystem="local" code="NITRIU& quot; displayName="UA NITRITE DIPSTICK" /> <statusCode code="completed" /> <effectiveTime value=" 052829670846" /> <value unit="" xsi:type="PQ& quot; value="NEGATIVE" /> <referenceRange> < observationRange> <text>NEGATIVE</text> & lt;/observationRange> </referenceRange> </ observation> </component> <component> < observation moodCode="EVN" classCode="OBS"> < templateId root="2.16.840.1.150827.10..22.4.2" /> < id nullFlavor="NA" /> <code codeSystem="local&quot ; code="PROTEIU" displayName="UA PROTEIN DIPSTICK" /> <statusCode code="completed" /> <effectiveTime value="915114249018" /> <value unit="" xsi: type="PQ" value="1+" /> <interpretationCode codeSystem="local" code="*" /> < referenceRange> <observationRange> <text> NEGATIVE</text> </observationRange> </ referenceRange> </observation> </component> < component> <observation moodCode="EVN" classCode=" OBS"> <templateId root="2.16.840.1.218241.10.20.22.4.2& quot; /> <id nullFlavor="NA" /> <code codeSystem ="local" code="DGLUU" displayName="UA GLUCOSE DIPSTICK& quot; /> <statusCode code="completed" /> & lt;effectiveTime value="744918506122" /> <value unit=& quot;" xsi:type="PQ" value="NEGATIVE" /> & lt;referenceRange> <observationRange> <text> NEGATIVE</text> </observationRange> </ referenceRange> </observation> </component> < component> <observation moodCode="EVN" classCode=" OBS"> <templateId root="2.16.840.1.893997.10..22.4.2& quot; /> <id nullFlavor="NA" /> <code codeSystem="local" code="KETONU" displayName="UA KETONE DIPSTICK" /> <statusCode code="completed" / > <effectiveTime value="789395955654" /> & lt;value unit="" xsi:type="PQ" value="TRACE" /&gt ; <interpretationCode codeSystem="local" code="*&quot ; /> <referenceRange> <observationRange> <text>NEGATIVE</text> </observationRange> </referenceRange> </observation> </component& gt; <component> <observation moodCode="EVN" classCode="OBS"> <templateId root=" 2.16.840.1.998080.10.20.22.4.2" /> <id nullFlavor="NA& quot; /> <code codeSystem="local" code="UROBILU& quot; displayName="UA UROBILINOGEN DIPSTICK" /> < statusCode code="completed" /> <effectiveTime value=& quot;695237872716" /> <value unit="" xsi:type=& quot;PQ" value="NORMAL" /> <referenceRange> <observationRange> <text>NORMAL</text> </observationRange> </referenceRange> </ observation> </component> <component> < observation moodCode="EVN" classCode="OBS"> < templateId root="2.16.840.1.472357.10.20.22.4.2" /> < id nullFlavor="NA" /> <code codeSystem="local&quot ; code="BILU" displayName="UA BILIRUBIN DIPSTICK" /> <statusCode code="completed" /> < effectiveTime value="030264453752" /><value unit="" xsi:type="PQ" value="NEGATIVE" /> < referenceRange> <observationRange> <text> NEGATIVE</text> </observationRange> </ referenceRange> </observation></component> < component> <observation moodCode="EVN" classCode=" OBS"> <templateId root="2.16.840.1.476351.10..22.4.2& quot; /> <id nullFlavor="NA" /> <code codeSystem="local" code="HILDA" displayName="UA BLOOD DIPSTICK" /> <statusCode code="completed" /> <effectiveTime value="284139152270" /> < value unit="" xsi:type="PQ" value="TRACE" /> <interpretationCodecodeSystem="local" code="*" /& gt; <referenceRange> <observationRange> <text>NEGATIVE</text> </observationRange> </referenceRange> </observation> </component& gt; <component> <observation moodCode="EVN" classCode="OBS"> <templateId root=" 2.16.840.1.618414.10..22.4.2" /> <id nullFlavor="NA& quot; /> <code codeSystem="local" code="SPGRU&quot ; displayName="UA SPECIFIC GRAVITY" /> <statusCode code ="completed" /> <effectiveTime value="072510263358 " /> <value unit="" xsi:type="PQ" value= "1.015" /> <referenceRange> < observationRange> <text>1.015-1.025</text> </observationRange> </referenceRange> </observation& gt; </component> <component> <observation moodCode="EVN" classCode="OBS"> <templateId root="2.16.840.1.209048.10.20.22.4.2" /> <id nullFlavor ="NA" /> <code codeSystem="local" code=" CLEMENTINE" displayName="UR PH" /> <statusCode code=&quot ;completed" /> <effectiveTime value="852208831148&quot ; /> <value unit="" xsi:type="PQ" value=&quot ;5.0" /> <referenceRange> <observationRange > <text>5.0-7.0</text> </ observationRange> </referenceRange> </observation> </component> </organizer> </entry> <entry> & lt;organizer moodCode="EVN" classCode="BATTERY"> &lt ;templateId root="2.16.840.1.813427.10.20.22.4.1" /> <id nullFlavor="NA" /> <code codeSystem="local" code= "UAMICRO" displayName="UA MICROSCOPIC" /> < statusCode code="completed" /> <component> < observation moodCode="EVN" classCode="OBS"> < templateId root="2.16.840.1.795566.10.20.22.4.2" /> < id nullFlavor="NA" /> <codecodeSystem="local&quot ; code="BACU" displayName="UA BACTERIA" /> < statusCode code="completed" /> <effectiveTime value=& quot;297886868022" /> <value unit="" xsi:type=& quot;PQ" value="2+" /> <interpretationCode codeSystem="local" code="*" /> < referenceRange> <observationRange> <text> NEGATIVE</text> </observationRange> </ referenceRange> </observation></component> < component> <observation moodCode="EVN" classCode=" OBS"> <templateId root="2.16.840.1.960544.10.20.22.4.2& quot; /> <id nullFlavor="NA" /> <code codeSystem="local" code="EPIU" displayName="UA EPITHELIAL CELLS" /> <statusCode code="completed" /> <effectiveTime value="749733286814" /> & lt;valueunit="epi/hpf" xsi:type="PQ" value="1+" /& gt; <referenceRange> <observationRange> <text>0 - 1+</text> </observationRange> </referenceRange> </observation> </component&gt ; <component> <observation moodCode="EVN" classCode="OBS"> <templateId root=" 2.16.840.1.983998.10.20.22.4.2" /> <id nullFlavor="NA& quot; /> <code codeSystem="local" code="RBCU&quot ; displayName="UA RBC" /> <statusCode code=" completed" /> <effectiveTime value="370503880997" /> <value unit="rbc/hpf" xsi:type="PQ" value=" 0-3" /> <referenceRange> <observationRange& gt; <text>0 - 3</text> </observationRange > </referenceRange> </observation> </ component> <component> <observation moodCode="EVN& quot; classCode="OBS"> <templateId root=" 2.16.840.1.712541.10.20.22.4.2" /> <id nullFlavor="NA& quot; /> <code codeSystem="local" code="UAVOL&quot ; displayName="UA VOLUME FOR EXAM" /> <statusCode code= "completed" /> <effectiveTime value="802023291299& quot; /> <value unit="mL" xsi:type="PQ" value ="12.0" /> <referenceRange> < observationRange> <text>(12mL STD)</text> </observationRange> </referenceRange> </ observation> </component> <component> < observation moodCode="EVN" classCode="OBS"> < templateId root="2.16.840.1.918163.10.20.22.4.2" /> < id nullFlavor="NA" /> <code codeSystem="local" code="WBCU" displayName="UA WBC" /> < statusCode code="completed" /> <effectiveTime value=& quot;987052920943" /> <value unit="wbc/hpf" xsi: type="PQ" value="20-50" /> < interpretationCode codeSystem="local" code="*"/> <referenceRange> <observationRange> < text>0- 5</text> </observationRange> </ referenceRange> </observation> </component> < component> <observation moodCode="EVN" classCode=" OBS"> <templateId root="2.16.840.1.219231.10.20.22.4.2& quot; /> <id nullFlavor="NA" /> <code codeSystem="local" code="WBCCLUMPS" displayName="WBC CLUMPS" /> <statusCodecode="completed" /> <effectiveTime value="789623763714" /> <value unit=& quot;" xsi:type="PQ" value="PRESENT" /> &lt ;interpretationCode codeSystem="local" code="*" /> <referenceRange> <observationRange> < text>NEGATIVE</text> </observationRange> < /referenceRange> </observation> </component> </ organizer> </entry> <entry> <organizer moodCode="EVN " classCode="BATTERY"> <templateId root=" 2.16.840.1.049437.10.20.22.4.1" /> <id nullFlavor="NA&quot ; /> <code codeSystem="local" code="GHGLUMON" displayName="GLUCOSE (POC)" /> <statusCode code=" completed" /> <component> <observation moodCode=& quot;EVN" classCode="OBS"> <templateId root=" 2.16.840.1.717225.10.20.22.4.2" /> <id nullFlavor="NA" /& gt; <code codeSystem="local" code="GHGLUMON" displayName="GLUCOSE (POC)" /> <statusCode code=" completed" /> <effectiveTime value="803085489216" /> <value unit="mg/dL" xsi:type="PQ" value=& quot;214" /> <interpretationCode codeSystem="local&quot ; code="*" /> <referenceRange> < observationRange> <text>70-99</text> < /observationRange> </referenceRange> </observation& gt; </component> </organizer> </entry> <entry&gt ; <organizer moodCode="EVN" classCode="BATTERY"> <templateId root="2.16.840.1.319289.10.20.22.4.1" /> & lt;idnullFlavor="NA" /> <code codeSystem="local" code="GHGLUMON"displayName="GLUCOSE (POC)" /> < statusCode code="completed" /> <component> < observation moodCode="EVN" classCode="OBS"> < templateId root="2.16.840.1.375579.10.20.22.4.2" /> < id nullFlavor="NA" /> <code codeSystem="local&quot ; code="GHGLUMON" displayName="GLUCOSE (POC)" /> <statusCode code="completed" /> <effectiveTime value=&quot ;934954832776" /> <value unit="mg/dL" xsi:type=& quot;PQ" value="214" /> <interpretationCode codeSystem="local" code="*" /> < referenceRange> <observationRange> <text> 70-99</text> </observationRange> </ referenceRange> </observation> </component> </ organizer> </entry> <entry> <organizer moodCode="EVN " classCode="BATTERY"> <templateId root=" 2.16.840.1.058020.10.20.22.4.1" /> <id nullFlavor="NA&quot ; /> <code codeSystem="local" code="CARBAR" displayName="CARBAPENEMASE PCR" /> <statusCode code=" completed" /> <component> <observation moodCode=& quot;EVN" classCode="OBS"> <templateId root=" 2.16.840.1.638583.10.20.22.4.2" /> <id nullFlavor="NA& quot; /> <code codeSystem="local" code="MB" displayName="Microbiology" /> <statusCode code=" completed" /> <effectiveTime value="383067534451" /> <value xsi:type="ST" value="<pre><b&gt ;CARBAPENEMASE PCR</b> See BelowCARBAPENEMASE PCR(F) Aarti Date/ Time: 04/03/2017 12:56 Mara Date/Time: // :SOURCE : URINESPEC DESC: See BelowCARBAPENEMASE PCR(F) Aarti Date/Time: 12:56 Mara Date/Time: 04/07/2017 07: 56SOURCE: URINESPEC DESC: IMIPENEMASE CLASS MBLIMP TARGET DNA SEQUENCE NOT DETECTEDKLEP PNEUMO CARBAPENEMASEKPC TARGET DNA SEQUENCE NOT DETECTEDNEW DELHI METALLO-BLNDM TARGET DNA SEQUENCE NOT DETECTEDORGANISM:ENTEROBACTER CLOACAE COMPLEXCLASS D OXACILLINASEOXA-48 TARGET DNA SEQUENCE NOT DETECTEDVERONA INTEGRIN-MEDIATEDVIM TARGET DNA SEQUENCE NOT DETECTEDSANFORD MEDICAL CENTER[address] [place] [address]</pre>" /> <referenceRange&gt ; <observationRange> <text /> &lt ;/observationRange> </referenceRange> </observation& gt; </component> </organizer> </entry> <entry&gt ; <organizer moodCode="EVN" classCode="BATTERY"> <templateId root="2.16.840.1.996719.10.20.22.4.1" /> & lt;id nullFlavor="NA" /> <code codeSystem="local&quot ; code="CARBAR" displayName="CARBAPENEMASE PCR" /> & lt;statusCode code="completed" /> <component> < observation moodCode="EVN" classCode="OBS"> < templateId root="2.16.840.1.578217.10.20.22.4.2" /> < id nullFlavor="NA" /> <code codeSystem="local" code="MB" displayName="Microbiology" /> < statusCode code="completed" /> <effectiveTime value=& quot;536477118668" /> <value xsi:type="ST" value=& quot;<pre><b>CARBAPENEMASE PCR</b> See BelowCARBAPENEMASE PCR( F) Aarti Date/Time: 04/03/2017 12:56 Mara Date/Time: // :SOURCE: URINESPEC DESC: See BelowCARBAPENEMASE PCR(F) Aarti Date/Time: 04/03/2017 12:56 Mara Date/Time : 04/07/2017 07:56SOURCE: URINESPEC DESC: IMIPENEMASE CLASS MBLIMP TARGET DNA SEQUENCE NOT DETECTEDKLEP PNEUMO CARBAPENEMASEKPC TARGET DNA SEQUENCE NOT DETECTEDNEW DELHI METALLO-BLNDM TARGET DNA SEQUENCE NOTDETECTEDORGANISM: ENTEROBACTER CLOACAE COMPLEXCLASS D OXACILLINASEOXA-48 TARGET DNA SEQUENCE NOT DETECTEDVERONA INTEGRIN-MEDIATEDVIM TARGET DNA SEQUENCE NOT DETECTEDSANFORD MED[facility]ENTER[address] [place] [facility] [place] [address]</pre>" /> & lt;referenceRange> <observationRange> <text /> </observationRange> </referenceRange> </observation> </component> </organizer> </ entry> <entry> <organizer moodCode="EVN" classCode=& quot;BATTERY"> <templateId root=" 2.16.840.1.352082.10.20.22.4.1" /> <id nullFlavor="NA&quot ; /> <code codeSystem="local" code="METAB" displayName="METABOLIC PANEL, BASIC" /> <statusCode code=& quot;completed" /> <component> <observation moodCode="EVN" classCode="OBS"> <templateId root="2.16.840.1.295319.10.20.22.4.2" /> <id nullFlavor ="NA" /> <code codeSystem="local" code="K&quot ; displayName="POTASSIUM" /> <statusCode code=" completed" /> <effectiveTime value="508561568268" /> <value unit="mmol/L" xsi:type="PQ" value=& quot;6.0" /> <interpretationCode codeSystem="local&quot ; code="*" /> <referenceRange> < observationRange> <text>3.5-5.3</text> & lt;/observationRange> </referenceRange> </ observation> </component> <component> < observation moodCode="EVN" classCode="OBS"> < templateId root="2.16.840.1.676784.10.20.22.4.2" /> < id nullFlavor="NA" /> <code codeSystem="local&quot ; code="eGFR" displayName="EST GFR (MDRD)" /> & lt;statusCode code="completed" /> <effectiveTime value= "544553903387" /> <value unit="mL/min" xsi: type="PQ" value="15" /> <interpretationCode codeSystem="local" code="*" /> < referenceRange> <observationRange> <text>& amp;gt; 59</text> </observationRange> </ referenceRange> </observation> </component> < component> <observation moodCode="EVN" classCode=" OBS"> <templateId root="2.16.840.1.052409.10..22.4.2& quot; /> <id nullFlavor="NA" /> <code codeSystem="local" code="GAP" displayName="ANION GAP& quot; /> <statusCode code="completed" /> < effectiveTime value="894574090904" /> <value unit=&quot ;mmol/L" xsi:type="PQ" value="11" /> < referenceRange> <observationRange> <text> 5-15</text> </observationRange> </referenceRange& gt; </observation> </component> <component> <observation moodCode="EVN" classCode="OBS"> <templateId root="2.16.840.1.119349.10..22.4.2" /> <id nullFlavor="NA" /> <code codeSystem=&quot ;local" code="eCrCl" displayName="EST CrCl (CG)" /> <statusCode code="completed" /> < effectiveTime value="424701018318" /> <value unit=&quot ;mL/min" xsi:type="PQ" value="23" /> < interpretationCode codeSystem="local" code="*" /> <referenceRange> <observationRange> < text>> 59</text> </observationRange> & lt;/referenceRange> </observation> </component> <component> <observation moodCode="EVN" classCode=& quot;OBS"> <templateId root=" 2.16.840.1.194716.10.20.22.4.2" /> <id nullFlavor="NA& quot; /> <code codeSystem="local" code="GLU" displayName="GLUCOSE" /> <statusCode code=" completed" /> <effectiveTime value="177772101474" /> <value unit="mg/dL" xsi:type="PQ" value=& quot;257" /> <interpretationCode codeSystem="local" code="*" /> <referenceRange> < observationRange> <text>70-99</text> </ observationRange> </referenceRange> </observation&gt ; </component> <component> <observation moodCode ="EVN" classCode="OBS"> <templateId root=& quot;2.16.840.1.841572.10.20.22.4.2" /> <id nullFlavor=&quot ;NA" /> <code codeSystem="local" code="CA& quot; displayName="CALCIUM" /> <statusCode code=" completed" /> <effectiveTime value="006681783405" /& gt; <value unit="mg/dL" xsi:type="PQ" value=& quot;9.0" /> <referenceRange> < observationRange> <text>8.5-10.1</text> & lt;/observationRange> </referenceRange> </ observation> </component> <component> < observation moodCode="EVN" classCode="OBS"> < templateId root="2.16.840.1.333872.10.20.22.4.2" /> < id nullFlavor="NA" /> <code codeSystem="local&quot ; code="BUN" displayName="BLOOD UREA NITROGEN" /> <statusCode code="completed" /> <effectiveTime value="642485985109" /> <value unit="mg/dL" xsi:type="PQ" value="69" /> < interpretationCode codeSystem="local" code="*" /> <referenceRange> <observationRange> <text&gt ;7-20</text> </observationRange> </ referenceRange> </observation> </component> < component> <observation moodCode="EVN" classCode=" OBS"> <templateId root="2.16.840.1.501417.10.20.22.4.2& quot; /> <id nullFlavor="NA" /> <code codeSystem="local" code="CREAT" displayName="CREATININE " /> <statusCode code="completed" /> < effectiveTime value="277199540727" /> <value unit=&quot ;mg/dL" xsi:type="PQ" value="3.1"/> < interpretationCode codeSystem="local" code="*" />< referenceRange> <observationRange> <text> 0.6-1.0</text> </observationRange> </ referenceRange> </observation> </component> < component> <observation moodCode="EVN" classCode=" OBS"> <templateId root="2.16.840.1.759375.10..22.4.2& quot; /> <id nullFlavor="NA" /> <code codeSystem="local" code="NA" displayName="SODIUM" /> <statusCode code="completed" /> < effectiveTime value="912449310984" /> <value unit=&quot ;mmol/L" xsi:type="PQ" value="135" /> < referenceRange> <observationRange> <text>135 -148</text> </observationRange> </ referenceRange> </observation> </component> < component> <observation moodCode="EVN" classCode=" OBS"> <templateId root="2.16.840.1.447917.10..22.4.2& quot; /> <id nullFlavor="NA" /> <code codeSystem="local" code="CL" displayName="CHLORIDE&quot ; /> <statusCode code="completed" /> < effectiveTime value="577476032920" /> <value unit=&quot ;mmol/L" xsi:type="PQ" value="99" /> < referenceRange> <observationRange> <text> 98-110</text> </observationRange></referenceRange> </observation> </component> <component> <observation moodCode="EVN" classCode="OBS"> <templateId root="2.16.840.1.376859.10.20.22.4.2" /> & lt;id nullFlavor="NA" /> <code codeSystem="local& quot; code="CO2" displayName="CARBON DIOXIDE" /> <statusCode code="completed" /> <effectiveTime value="740055214822" /> <value unit="mmol/L" xsi:type="PQ" value="25" /> <referenceRange& gt; <observationRange> <text>21-32</text> </observationRange> </referenceRange> </ observation> </component> </organizer> </entry> & lt;entry> <organizer moodCode="EVN" classCode="BATTERY& quot;> <templateId root="216.840.1.633651.10.20.22.4.1" /& gt; <id nullFlavor="NA" /> <code codeSystem=" local" code="METAB" displayName="METABOLIC PANEL, BASIC&quot ; /> <statusCode code="completed" /> <component& gt; <observation moodCode="EVN" classCode="OBS"> <templateId root="2.16.840.1.661247.10.20.22.4.2" /> <id nullFlavor="NA" /> <code codeSystem="local& quot; code="K" displayName="POTASSIUM" /> < statusCode code="completed" /> <effectiveTime value=& quot;508466868710" /> <value unit="mmol/L" xsi: type="PQ" value="6.0" /> <interpretationCode codeSystem="local" code="*" /> <referenceRange > <observationRange> <text>3.5-5.3</ text> </observationRange> </referenceRange> </observation> </component> <component> <observation moodCode="EVN" classCode="OBS"> <templateId root="2.16.840.1.877126.10.20.22.4.2" /> <id nullFlavor="NA" /> <code codeSystem=" local" code="eGFR" displayName="EST GFR (MDRD)" /> <statusCode code="completed" /> < effectiveTime value="818652831891" /><value unit="mL/min& quot; xsi:type="PQ" value="15" /> < interpretationCode codeSystem="local" code="*" /> <referenceRange> <observationRange> < text>> 59</text> </observationRange> & lt;/referenceRange> </observation> </component> <component> <observation moodCode="EVN" classCode=& quot;OBS"> <templateId root=" 2.16.840.1.905950.10.20.22.4.2" /> <idnullFlavor="NA& quot; /> <code codeSystem="local" code="GAP" displayName="ANION GAP" /> <statusCode code=" completed" /> <effectiveTime value="482102075047" /> <value unit="mmol/L" xsi:type="PQ" value=" 11" /> <referenceRange> <observationRange& gt; <text>5-15</text> </observationRange& gt; </referenceRange> </observation> </ component> <component> <observation moodCode="EVN& quot; classCode="OBS"> <templateId root=" 2.16.840.1.538427.10.20.22.4.2" /> <id nullFlavor="NA& quot; /> <code codeSystem="local" code="eCrCl&quot ; displayName="EST CrCl (CG)" /> <statusCode code=&quot ;completed" /> <effectiveTime value="110851545020&quot ; /> <value unit="mL/min" xsi:type="PQ" value ="23" /> <interpretationCode codeSystem="local& quot; code="*" /> <referenceRange> < observationRange> <text>> 59</text> </observationRange> </referenceRange> </ observation> </component> <component> < observation moodCode="EVN" classCode="OBS"> < templateId root="[id number]" /> < id nullFlavor="NA" /> <code codeSystem="local&quot ; code="GLU" displayName="GLUCOSE" /> < statusCode code="completed" /> <effectiveTime value=& quot;[id number]" /> <value unit="mg/dL" xsi:type ="PQ" value="257" /> <interpretationCode codeSystem="local" code="*" /> < referenceRange> <observationRange> <text> 70-99</text> </observationRange> </referenceRange&gt ; </observation> </component> <component> <observation moodCode="EVN" classCode="OBS"> <templateId root="[id number]" /> < id nullFlavor="NA" /> <code codeSystem="local&quot ; code="CA" displayName="CALCIUM" /> < statusCode code="completed" /> <effectiveTime value=& quot;804622575242" /> <value unit="mg/dL" xsi:type ="PQ" value="9.0" /> <referenceRange> <observationRange> <text>8.5-10.1</text> </observationRange> </referenceRange> & lt;/observation> </component> <component> < observation moodCode="EVN" classCode="OBS">< templateId root="2.16.840.1.480372.10.20.22.4.2" /> < id nullFlavor="NA" /> <code codeSystem="local&quot ; code="BUN" displayName="BLOOD UREA NITROGEN" /> <statusCode code="completed" /> <effectiveTime value="548975270081" /> <value unit="mg/dL" xsi:type="PQ" value="69" /> < interpretationCode codeSystem="local" code="*" /> <referenceRange> <observationRange> <text& gt;7-20</text> </observationRange> </ referenceRange> </observation> </component> < component> <observation moodCode="EVN" classCode=" OBS"> <templateId root="2.16.840.1.438154.10.20.22.4.2& quot; /> <id nullFlavor="NA" /> <code codeSystem="local" code="CREAT" displayName="CREATININE " /> <statusCode code="completed" /> < effectiveTime value="762049065592" /> <value unit=&quot ;mg/dL" xsi:type="PQ" value="3.1" /> < interpretationCode codeSystem="local" code="*" /> < referenceRange> <observationRange> <text> 0.6-1.0</text> </observationRange> </ referenceRange> </observation> </component> < component> <observation moodCode="EVN" classCode=" OBS"> <templateId root="2.16.840.1.759881.10.20.22.4.2& quot; /> <id nullFlavor="NA" /> <code codeSystem="local" code="NA" displayName="SODIUM" /> <statusCode code="completed" /> < effectiveTime value="764277392691" /> <value unit=&quot ;mmol/L" xsi:type="PQ" value="135" /> < referenceRange> <observationRange> <text> 135-148</text> </observationRange> </ referenceRange> </observation> </component> < component> <observation moodCode="EVN" classCode=" OBS"> <templateId root="2.16.840.1.828565.10.20.22.4.2& quot; /> <id nullFlavor="NA" /> <code codeSystem="local" code="CL" displayName="CHLORIDE&quot ; /> <statusCode code="completed" /> < effectiveTime value="354336140260" /> <value unit=&quot ;mmol/L" xsi:type="PQ" value="99" /> < referenceRange> <observationRange> <text> 98-110</text> </observationRange> </referenceRange&gt ; </observation> </component> <component> <observation moodCode="EVN" classCode="OBS"> <templateId root="2.16.840.1.573206.10.20.22.4.2" /> <id nullFlavor="NA" /> <code codeSystem=" local" code="CO2" displayName="CARBON DIOXIDE" /> <statusCode code="completed" /> < effectiveTime value="477440394949" /> <value unit=&quot ;mmol/L" xsi:type="PQ"value="25" /> < referenceRange> <observationRange> <text>21-32& lt;/text> </observationRange> </referenceRange& gt; </observation> </component> </organizer> & lt;/entry> <entry> <organizer moodCode="EVN" classCode ="BATTERY"> <templateId root=" 2.16.840.1.262409.10.20.22.4.1" /> <id nullFlavor="NA&quot ; /> <code codeSystem="local" code="GHGLUMON" displayName="GLUCOSE (POC)" /> <statusCode code=" completed" /> <component> <observation moodCode=& quot;EVN" classCode="OBS"> <templateId root=" 2.16.840.1.959407.10.20.22.4.2" /> <id nullFlavor="NA& quot; /> <code codeSystem="local" code="GHGLUMON" displayName="GLUCOSE (POC)" /> <statusCode code=" completed" /> <effectiveTime value="024656295699" /> <value unit="mg/dL" xsi:type="PQ" value=& quot;281" /> <interpretationCode codeSystem="local&quot ; code="*"/> <referenceRange> < observationRange> <text>70-99</text> < /observationRange> </referenceRange> </observation& gt; </component> </organizer> </entry> <entry&gt ; <organizer moodCode="EVN" classCode="BATTERY"> <templateId root="2.16.840.1.438015.10.20.22.4.1" /> & lt;id nullFlavor="NA" /> <code codeSystem="local&quot ; code="GHGLUMON" displayName="GLUCOSE (POC)" /> &lt ;statusCode code="completed" /> <component> < observation moodCode="EVN" classCode="OBS"> < templateId root="2.16.840.1.557972.10.20.22.4.2" /> < id nullFlavor="NA" /> <code codeSystem="local&quot ; code="GHGLUMON" displayName="GLUCOSE (POC)" /> <statusCode code="completed" /> <effectiveTime value="687865786824" /> <value unit="mg/dL" xsi:type="PQ" value="281" /> < interpretationCode codeSystem="local" code="*" /> <referenceRange> <observationRange> < text>70-99</text> </observationRange> </ referenceRange> </observation> </component> </ organizer> </entry> <entry> <organizer moodCode="EVN " classCode="BATTERY"> <templateId root=" 2.16.840.1.767304.10.20.22.4.1" /> <id nullFlavor="NA&quot ; /> <code codeSystem="local" code="GHGLUMON" displayName="GLUCOSE (POC)" /> <statusCode code=" completed" /> <component> <observation moodCode=& quot;EVN" classCode="OBS"> <templateId root=" 216.840.1.936600.10.20.22.4.2" /> <id nullFlavor="NA& quot; /> <code codeSystem="local" code="GHGLUMON& quot; displayName="GLUCOSE (POC)" /> <statusCode code=& quot;completed" /> <effectiveTime value="319713183700& quot; /> <value unit="mg/dL" xsi:type="PQ" value="223" /> <interpretationCode codeSystem=" local" code="*" /> <referenceRange> < observationRange> <text>70-99</text> < /observationRange> </referenceRange> </observation& gt; </component> </organizer> </entry> <entry&gt ; <organizer moodCode="EVN" classCode="BATTERY"> <templateId root="2.16.840.1.345017.10.20.22.4.1" /> < id nullFlavor="NA" /> <code codeSystem="local" code="GHGLUMON" displayName="GLUCOSE (POC)" /> < statusCode code="completed" /> <component> < observation moodCode="EVN" classCode="OBS"> < templateId root="216.840.1.485687.10.20.22.4.2" /> < id nullFlavor="NA" /> <code codeSystem="local&quot ; code="GHGLUMON" displayName="GLUCOSE (POC)" /> <statusCode code="completed" /> <effectiveTime value="684111179080" /> <value unit="mg/dL" xsi:type="PQ" value="223" /> < interpretationCode codeSystem="local" code="*" /> <referenceRange> <observationRange> < text>70-99</text> </observationRange></ referenceRange> </observation> </component> </ organizer> </entry> <entry> <organizer moodCode="EVN " classCode="BATTERY"> <templateId root=" 2.16.840.1.103723.10.20.22.4.1" /> <id nullFlavor="NA&quot ; /> <code codeSystem="local" code="GHGLUMON" displayName="GLUCOSE (POC)" /> <statusCode code=" completed" /> <component> <observation moodCode=& quot;EVN" classCode="OBS"> <templateId root=" 2.16.840.1.656767.10.20.22.4.2" /> <id nullFlavor="NA& quot; /> <code codeSystem="local" code="GHGLUMON& quot; displayName="GLUCOSE (POC)" /> <statusCode code=& quot;completed" /> <effectiveTime value="406630639232& quot; /> <value unit="mg/dL" xsi:type="PQ" value="223" /> <interpretationCode codeSystem=" local" code="*" /> <referenceRange> <observationRange> <text>70-99</text> </ observationRange> </referenceRange> </observation&gt ; </component> </organizer> </entry> <entry> <organizer moodCode="EVN" classCode="BATTERY"> <templateId root="2.16.840.1.014345.10.20.22.4.1" /> < id nullFlavor="NA" /> <code codeSystem="local" code ="GHGLUMON" displayName="GLUCOSE (POC)" /> < statusCode code="completed" /> <component> < observation moodCode="EVN" classCode="OBS"> < templateId root="2.16.840.1.008086.10.20.22.4.2" /> < id nullFlavor="NA" /> <code codeSystem="local&quot ; code="GHGLUMON" displayName="GLUCOSE (POC)" /> <statusCode code="completed" /> <effectiveTime value="903998109656" /> <value unit="mg/dL" xsi:type="PQ" value="223" /> < interpretationCode codeSystem="local" code="*" /> <referenceRange> <observationRange> < text>70-99</text> </observationRange> </ referenceRange> </observation> </component> </ organizer> </entry> <entry> <organizer moodCode="EVN " classCode="BATTERY"> <templateId root=" 2.16.840.1.524374.10.20.22.4.1" /> <id nullFlavor="NA&quot ; /> <code codeSystem="local" code="CBCD" displayName="CBC W/DIFF" /> <statusCode code=" completed" /> <component> <observation moodCode=& quot;EVN" classCode="OBS"> <templateId root=" 2.16.840.1.855437.10.20.22.4.2" /> <id nullFlavor="NA& quot; /> <code codeSystem="local" code="EO#" displayName="EOSINOPHIL #" /> <statusCode code=" completed" /> <effectiveTime value="319383199249" /> <value unit="k/cumm" xsi:type="PQ" value=& quot;0.1" /> <referenceRange> < observationRange> <text>0.1-0.5</text> </ observationRange> </referenceRange> </observation&gt ; </component> <component> <observation moodCode ="EVN" classCode="OBS"> <templateId root=& quot;2.16.840.1.871840.10.20.22.4.2" /> <id nullFlavor="NA& quot; /> <code codeSystem="local" code="EO&#37 ;" displayName="EOSINOPHIL %" /> < statusCode code="completed" /> <effectiveTime value=& quot;307870034197" /> <value unit="%" xsi: type="PQ" value="1" /> <interpretationCode codeSystem="local" code="*" /> < referenceRange> <observationRange> <text>2 -4</text> </observationRange> </ referenceRange> </observation> </component> < component> <observation moodCode="EVN" classCode=" OBS"> <templateId root="2.16.840.1.953730.10.20.22.4.2& quot; /> <id nullFlavor="NA" /> <code codeSystem="local" code="GR#" displayName="GRANULOCYTE #" /> <statusCode code="completed" /> <effectiveTime value="436097339268" /> <value unit=& quot;k/cumm" xsi:type="PQ" value="12.1" /> <interpretationCode codeSystem="local" code="*" /> <referenceRange> <observationRange> & lt;text>2.0-9.0</text> </observationRange> & lt;/referenceRange> </observation> </component> <component> <observation moodCode="EVN" classCode=& quot;OBS"> <templateId root=" 2.16.840.1.630946.10.20.22.4.2" /> <id nullFlavor="NA& quot; /> <code codeSystem="local" code="GR%" displayName="GRANULOCYTE %" /> <statusCode code ="completed" /> <effectiveTime value="598899375884 " /> <value unit="%" xsi:type="PQ& quot; value="81" /> <interpretationCode codeSystem=& quot;local" code="*" /> <referenceRange> <observationRange><text>50-75</text> </ observationRange> </referenceRange> </observation&gt ; </component> <component> <observation moodCode ="EVN" classCode="OBS"> <templateId root=& quot;2.16.840.1.211190.10.20.22.4.2" /> <id nullFlavor=&quot ;NA" /> <code codeSystem="local" code="LY#& quot; displayName="LYMPHOCYTE #" /> <statusCode code=& quot;completed" /> <effectiveTime value="370166163749& quot;/> <value unit="k/cumm" xsi:type="PQ" value="1.5" /> <referenceRange> < observationRange> <text>1.0-4.0</text> & lt;/observationRange> </referenceRange> </ observation> </component> <component> < observation moodCode="EVN" classCode="OBS"> < templateId root="2.16.840.1.646214.10.20.22.4.2" /> < id nullFlavor="NA" /> <code codeSystem="local&quot ; code="LY%" displayName="LYMPHOCYTE %" /&gt ; <statusCode code="completed" /> < effectiveTime value="197715379421" /> <value unit=&quot ;%" xsi:type="PQ" value="10" /> < interpretationCode codeSystem="local" code="*" /> <referenceRange> <observationRange> < text>20-30</text> </observationRange> </ referenceRange> </observation> </component> < component> <observation moodCode="EVN" classCode=" OBS"> <templateId root="2.16.840.1.354699.10.20.22.4.2& quot; /> <id nullFlavor="NA" /> <code codeSystem="local" code="MCH" displayName="MEAN CELL HGB" /> <statusCode code="completed" /> <effectiveTime value="681774111886" /> <value unit="pg" xsi:type="PQ" value="28.4" /> <referenceRange> <observationRange> <text&gt ;27.0-33.0</text> </observationRange> </ referenceRange> </observation> </component> < component> <observation moodCode="EVN" classCode=" OBS"> <templateId root="2..840.1.851421.10.20.22.4.2& quot; /> <id nullFlavor="NA" /> <code codeSystem="local" code="MCHC" displayName="MEAN CELL HGB CONCENTRATION" /> <statusCode code="completed" /> <effectiveTime value="562059854610" /> & lt;value unit="g/dL" xsi:type="PQ" value="31.4" /& gt; <interpretationCode codeSystem="local" code="*& quot; /> <referenceRange> <observationRange> <text>32.0-37.0</text> </ observationRange> </referenceRange> </observation> </component> <component> <observation moodCode= "EVN" classCode="OBS"> <templateId root=&quot ;2.16.840.1.629685.10.20.22.4.2" /> <id nullFlavor="NA& quot; /> <code codeSystem="local" code="MCV" displayName="MEAN CELL VOLUME" /> <statusCode code=& quot;completed" /> <effectiveTime value="884483148603& quot; /> <value unit="fl" xsi:type="PQ" value ="90.2" /> <referenceRange> < observationRange> <text>80.0-100.0</text> </observationRange> </referenceRange> </ observation> </component> <component> < observation moodCode="EVN" classCode="OBS"> < templateId root="2.16.840.1.088646.10.20.22.4.2" /> < id nullFlavor="NA" /> <code codeSystem="local" code= "MO#" displayName="MONOCYTE #" /> < statusCode code="completed" /> <effectiveTime value=& quot;573022487093" /> <value unit="k/cumm" xsi: type="PQ" value="1.1" /> <interpretationCode codeSystem="local" code="*" /> < referenceRange> <observationRange> <text> 0.1-1.0</text> </observationRange> </ referenceRange> </observation> </component> < component> <observation moodCode="EVN" classCode=" OBS"> <templateId root="2.16.840.1.911988.10.20.22.4.2& quot; /> <id nullFlavor="NA" /> <code codeSystem="local" code="MO%" displayName=" MONOCYTE %" /> <statusCode code="completed&quot ; /> <effectiveTime value="677315786093" /> <value unit="%" xsi:type="PQ" value="8& quot; /> <interpretationCode codeSystem="local" code=&quot ;*" /> <referenceRange> <observationRange& gt; <text>4-6</text> </observationRange> </referenceRange> </observation> </component> <component> <observation moodCode="EVN" classCode="OBS"> <templateId root=" 2.840.1.683000.10.20.22.4.2" /> <id nullFlavor="NA& quot; /> <code codeSystem="local" code="RBC" displayName="RED BLOOD CELL" /> <statusCode code=" completed"/> <effectiveTime value="485854133122" / > <value unit="m/cumm" xsi:type="PQ" value=& quot;3.28" /> <interpretationCode codeSystem="local& quot; code="*" /> <referenceRange> < observationRange> <text>4.00-6.00</text> </observationRange> </referenceRange> </ observation> </component> <component> < observation moodCode="EVN" classCode="OBS"> < templateId root="2.16.840.1.081844.10.20.22.4.2" /> < id nullFlavor="NA" /> <code codeSystem="local&quot ; code="RDW" displayName="RED CELL DISTRIBUTION WIDTH" /&gt ; <statusCode code="completed" /><effectiveTime value="959389896248" /> <value unit="%& quot;xsi:type="PQ" value="16.7" /> < interpretationCode codeSystem="local" code="*" /> <referenceRange> <observationRange> < text>11.0-15.6</text> </observationRange> &lt ;/referenceRange> </observation> </component> & lt;component> <observation moodCode="EVN" classCode="OBS& quot;> <templateId root="2.16.840.1.191462.10.20.22.4.2&quot ; /> <id nullFlavor="NA" /> <code codeSystem="local" code="WBC" displayName="WHITE BLOOD CELL" /> <statusCode code="completed" /> <effectiveTime value="275719106411" /> <value unit="k/cumm" xsi:type="PQ" value="14.8" /> <interpretationCode codeSystem="local" code="*" /& gt; <referenceRange> <observationRange> <text>5.0-10.0</text> </observationRange> </referenceRange> </observation> </component> <component> <observation moodCode="EVN" classCode=& quot;OBS"> <templateId root=" 2.16.840.1.885343.10.20.22.4.2" /> <id nullFlavor="NA& quot; /> <code codeSystem="local" code="HGBT&quot ; displayName="HEMOGLOBIN" /> <statusCode code=" completed" /> <effectiveTime value="614280669895" /> <value unit="gm/dL" xsi:type="PQ" value=& quot;9.3" /> <interpretationCode codeSystem="local" code=& quot;*" /> <referenceRange> < observationRange> <text>12.0-16.0</text> </ observationRange> </referenceRange> </observation&gt ; </component> <component> <observation moodCode ="EVN" classCode="OBS"> <templateId root=& quot;2.16.840.1.225654.10.20.22.4.2" /><id nullFlavor="NA" /> <code codeSystem="local" code="HCTT" displayName="HEMATOCRIT" /> <statusCode code=" completed" /> <effectiveTime value="025602692855" /> <value unit="%" xsi:type="PQ" value="29.6" /> <interpretationCode codeSystem=" local" code="*" /> <referenceRange> <observationRange> <text>37.0-47.0</text> </observationRange> </referenceRange> </ observation> </component> <component> < observation moodCode="EVN" classCode="OBS"> < templateId root="2.16.840.1.505366.10.20.22.4.2" /> < id nullFlavor="NA" /> <code codeSystem="local&quot ; code="PLTT" displayName="PLATELET COUNT" /> & lt;statusCode code="completed" /> <effectiveTime value= "079045105166" /> <value unit="k/cumm" xsi: type="PQ" value="280" /> <referenceRange> <observationRange> <text>150-450</text& gt; </observationRange> </referenceRange> </observation> </component> </organizer> </entry > <entry> <organizer moodCode="EVN" classCode=" BATTERY"> <templateId root="2.16.840.1.191282.10.20.22.4.1& quot; /> <id nullFlavor="NA" /> <code codeSystem ="local" code="METAB" displayName="METABOLIC PANEL, BASIC" /> <statusCode code="completed" /> < component> <observation moodCode="EVN" classCode=" OBS"> <templateId root="2.16.840.1.230075.10.20.22.4.2& quot; /> <id nullFlavor="NA" /> <code codeSystem="local" code="K" displayName="POTASSIUM&quot ; /> <statusCode code="completed" /> < effectiveTime value="272373459298" /> <value unit=&quot ;mmol/L" xsi:type="PQ" value="5.4" /> < interpretationCode codeSystem="local" code="*" /> <referenceRange> <observationRange> < text>3.5-5.3</text> </observationRange> </ referenceRange> </observation> </component> < component> <observation moodCode="EVN" classCode=" OBS"> <templateId root="2.16.840.1.741801.10.20.22.4.2& quot; /> <id nullFlavor="NA" /> <code codeSystem="local" code="eGFR" displayName="EST GFR ( MDRD)" /> <statusCode code="completed" /> <effectiveTime value="538061273344"/> <value unit="mL/min" xsi:type="PQ" value="16" /> <interpretationCode codeSystem="local" code="*" /> <referenceRange> <observationRange> <text>> 59</text> </observationRange> </referenceRange> </observation> </component> <component> <observation moodCode="EVN" classCode="OBS"> <templateId root=" 2.16.840.1.072468.10.20.22.4.2" /> <id nullFlavor="NA& quot; /> <code codeSystem="local" code="GAP" displayName="ANION GAP" /> <statusCode code=" completed" /> <effectiveTime value="975368986625" /> <value unit="mmol/L" xsi:type="PQ" value=& quot;6" /> <referenceRange> <observationRange& gt; <text>5-15</text> </observationRange& gt; </referenceRange> </observation> </ component> <component> <observation moodCode="EVN" classCode="OBS"> <templateId root=" 2.16.840.1.436820.10.20.22.4.2" /> <id nullFlavor="NA& quot; /> <code codeSystem="local" code="eCrCl&quot ; displayName="EST CrCl (CG)" /> <statusCode code=&quot ;completed" /> <effectiveTime value="906649266765&quot ; /> <value unit="mL/min" xsi:type="PQ" value ="25" /> <interpretationCode codeSystem="local& quot; code="*" /> <referenceRange> < observationRange> <text>> 59</text> </observationRange> </referenceRange> </ observation> </component> <component> < observation moodCode="EVN" classCode="OBS"> < templateId root="2..840.1.863616.10..22.4.2" /> < id nullFlavor="NA" /> <code codeSystem="local" code= "GLU" displayName="GLUCOSE" /> <statusCode code ="completed" /> <effectiveTime value="353804066340 " /> <value unit="mg/dL" xsi:type="PQ" value="244" /> <interpretationCode codeSystem=" local" code="*" /> <referenceRange> < observationRange> <text>70-99</text> < /observationRange> </referenceRange> </observation& gt; </component> <component> <observation moodCode="EVN" classCode="OBS"> <templateId root="2.16.840.1.505889.10.20.22.4.2"/> <id nullFlavor= "NA" /> <code codeSystem="local"code="CA " displayName="CALCIUM" /> <statusCode code=" completed" /> <effectiveTime value="144774843854" /> <value unit="mg/dL" xsi:type="PQ" value=& quot;9.5" /> <referenceRange> < observationRange> <text>8.5-10.1</text> & lt;/observationRange> </referenceRange> </ observation> </component> <component> < observation moodCode="EVN" classCode="OBS"> < templateId root="2.16.840.1.978252.10.20.22.4.2" /> < id nullFlavor="NA" /> <code codeSystem="local&quot ; code="BUN" displayName="BLOOD UREA NITROGEN" /> <statusCode code="completed" /> <effectiveTime value="346208216876" /> <value unit="mg/dL" xsi:type="PQ" value="73" /> < interpretationCode codeSystem="local" code="*" /> <referenceRange> <observationRange> < text>7-20</text> </observationRange> </ referenceRange> </observation> </component> < component> <observation moodCode="EVN" classCode="OBS& quot;> <templateId root="2.16.840.1.324755.10.20.22.4.2&quot ; /> <id nullFlavor="NA" /> <code codeSystem="local" code="CREAT" displayName="CREATININE " /> <statusCode code="completed" /> & lt;effectiveTime value="306413223302" /> <value unit=& quot;mg/dL" xsi:type="PQ" value="2.9" /> & lt;interpretationCode codeSystem="local" code="*" /> <referenceRange> <observationRange> & lt;text>0.6-1.0</text> </observationRange> & lt;/referenceRange> </observation> </component> <component> <observation moodCode="EVN" classCode=& quot;OBS"> <templateId root=" 2.16.840.1.021723.10.20.22.4.2" /> <id nullFlavor="NA& quot; /> <code codeSystem="local" code="NA" displayName="SODIUM" /> <statusCode code=" completed" /> <effectiveTime value="927015789376" /> <value unit="mmol/L" xsi:type="PQ" value=& quot;135" /> <referenceRange> < observationRange> <text>135-148</text> </ observationRange> </referenceRange> </observation&gt ; </component> <component> <observation moodCode ="EVN" classCode="OBS"> <templateId root=& quot;2.16.840.1.745796.10.20.22.4.2" /> <id nullFlavor="NA&quot ; /> <code codeSystem="local" code="CL" displayName="CHLORIDE" /> <statusCode code=" completed" /> <effectiveTime value="313825687395" /> <value unit="mmol/L" xsi:type="PQ" value=& quot;101" /> <referenceRange> <observationRange> <text>98-110</text> </observationRange&gt ; </referenceRange> </observation> </ component> <component> <observation moodCode="EVN& quot; classCode="OBS"> <templateId root=" 2.16.840.1.557469.10.20.22.4.2" /> <id nullFlavor="NA& quot; /> <code codeSystem="local" code="CO2" displayName="CARBON DIOXIDE" /> <statusCode code=" completed" /> <effectiveTime value="409854029252" /> <value unit="mmol/L" xsi:type="PQ" value=& quot;28" /> <referenceRange> < observationRange> <text>21-32</text> < /observationRange> </referenceRange> </observation& gt; </component> </organizer> </entry> <entry&gt ; <organizer moodCode="EVN" classCode="BATTERY"> <templateId root="2.16.840.1.962160.10.20.22.4.1" /> & lt;id nullFlavor="NA" /> <code codeSystem="local&quot ; code="HBSAG" displayName="AG HEPATITIS B SURF." /> <statusCode code="completed" /> <component> <observation moodCode="EVN" classCode="OBS"> <templateId root="2.16.840.1.739895.10..22.4.2" /> & lt;id nullFlavor="NA" /> <code codeSystem="local& quot; code="HBSAG" displayName="AG HEPATITIS B SURF." /> <statusCode code="completed" /> < effectiveTime value="192088636519" /> <value unit=&quot ;" xsi:type="PQ" value="NEGATIVE" /> < referenceRange> <observationRange> <text> NEGATIVE</text> </observationRange> </referenceRange > </observation> </component> </organizer> & lt;/entry> <entry> <organizer moodCode="EVN" classCode ="BATTERY"> <templateId root=" 2.16.840.1.418344.10.20.22.4.1" /> <id nullFlavor="NA&quot ; /> <code codeSystem="local" code="HCVAB" displayName="AB HEPATITIS C" /> <statusCode code=" completed" /> <component> <observation moodCode=& quot;EVN" classCode="OBS"> <templateId root=" 2.16.840.1.190888.10..22.4.2" /> <id nullFlavor="NA& quot; /> <code codeSystem="local" code="HCVAB&quot ; displayName="ABHEPATITIS C" /> <statusCode code=&quot ;completed" /> <effectiveTime value="975539021443&quot ; /> <value unit="" xsi:type="PQ" value=&quot ;NEGATIVE" /> <referenceRange> < observationRange> <text>NEGATIVE</text> & lt;/observationRange> </referenceRange> </ observation> </component> </organizer> </entry> & lt;entry> <organizer moodCode="EVN" classCode="BATTERY& quot;> <templateId root="2.16.840.1.953544.10.20.22.4.1" /&gt ; <id nullFlavor="NA" /> <code codeSystem=" local" code="HIV" displayName="HIV" /> < statusCode code="completed" /> <component> < observation moodCode="EVN" classCode="OBS"> < templateId root="[id number]" /> < id nullFlavor="NA" /> <code codeSystem="local&quot ; code="[id number]" displayName="AB HIV 1 2" /> <statusCode code="completed" /> <effectiveTime value ="[id number]" /> <value unit="" xsi:type=& quot;PQ" value="NEGATIVE" /> <referenceRange> <observationRange> <text>NEGATIVE</text& gt; </observationRange> </referenceRange> </observation> </component> <component> &lt ;observation moodCode="EVN" classCode="OBS"> &lt ;templateId root="2.16.840.1.820770.10.20.22.4.2" /> < id nullFlavor="NA" /> <code codeSystem="local&quot ; code="[id number]" displayName="HIV 1 P24 AG" /> < statusCode code="completed" /> <effectiveTime value=& quot;132839105478" /> <value unit="" xsi:type=& quot;PQ" value="NEGATIVE"/> <referenceRange> <observationRange> <text>NEGATIVE</text&gt ; </observationRange> </referenceRange> & lt;/observation> </component> </organizer> </entry&gt ; <entry> <organizer moodCode="EVN" classCode=" BATTERY"> <templateId root="2.16.840.1.179830.10.20.22.4.1& quot; /> <id nullFlavor="NA" /> <code codeSystem ="local" code="CBCD" displayName="CBC W/DIFF" /&gt ; <statusCode code="completed" /> <component> <observation moodCode="EVN" classCode="OBS"> <templateId root="2.16.840.1.554743.10.20.22.4.2" /> <id nullFlavor="NA" /> <code codeSystem=" local" code="EO#" displayName="EOSINOPHIL #" /> <statusCode code="completed" /> < effectiveTime value="206474461310" /> <value unit="k/ cumm" xsi:type="PQ" value="0.1" /><referenceRange > <observationRange> <text>0.1-0.5</ text> </observationRange> </referenceRange> </observation> </component> <component> <observation moodCode="EVN" classCode="OBS"> <templateId root="2.16.840.1.385343.10.20.22.4.2" /> <id nullFlavor="NA" /> <code codeSystem=" local" code="EO%" displayName="EOSINOPHIL %& quot; /> <statusCode code="completed" /> & lt;effectiveTime value="554577878806" /> <value unit="& amp;#37;" xsi:type="PQ" value="1" /> < interpretationCode codeSystem="local" code="*" /> <referenceRange> <observationRange> < text>2-4</text> </observationRange> </ referenceRange> </observation> </component> < component> <observation moodCode="EVN" classCode=" OBS"> <templateId root="2.16.840.1.270589.10..22.4.2& quot; /> <id nullFlavor="NA" /> <code codeSystem="local" code="GR#" displayName="GRANULOCYTE #" /> <statusCode code="completed" /> < effectiveTime value="387629485652" /> <value unit=&quot ;k/cumm" xsi:type="PQ" value="12.1" /> < interpretationCode codeSystem="local" code="*" /> <referenceRange> <observationRange> < text>2.0-9.0</text> </observationRange> </ referenceRange> </observation> </component> < component> <observation moodCode="EVN" classCode="OBS& quot;> <templateId root="2.16.840.1.854630.10..22.4.2&quot ; /> <id nullFlavor="NA" /> <code codeSystem="local" code="GR%" displayName=" GRANULOCYTE %" /> <statusCode code="completed& quot; /> <effectiveTime value="355904087635" /> <value unit="%" xsi:type="PQ" value=" 81" /> <interpretationCode codeSystem="local" code ="*" /> <referenceRange> < observationRange> <text>50-75</text> </ observationRange> </referenceRange> </observation&gt ; </component> <component> <observation moodCode ="EVN" classCode="OBS"> <templateId root=& quot;2.16.840.1.152083.10.20.22.4.2" /> <id nullFlavor=&quot ;NA" /> <code codeSystem="local" code="LY#& quot; displayName="LYMPHOCYTE #" /> <statusCode code=" completed" /> <effectiveTime value="529067931219" /> <value unit="k/cumm" xsi:type="PQ" value=& quot;1.5" /> <referenceRange> < observationRange> <text>1.0-4.0</text> & lt;/observationRange> </referenceRange> </ observation> </component> <component> < observation moodCode="EVN" classCode="OBS"> < templateId root="2.16.840.1.965365.10.20.22.4.2" /> < id nullFlavor="NA" /> <code codeSystem="local&quot ; code="LY%" displayName="LYMPHOCYTE %" /&gt ;<statusCode code="completed" /> <effectiveTime value="065980271798" /> <value unit="%& quot; xsi:type="PQ" value="10" /> < interpretationCode codeSystem="local" code="*" /> < referenceRange> <observationRange> <text> 20-30</text> </observationRange> </ referenceRange> </observation> </component> < component> <observation moodCode="EVN" classCode=" OBS"> <templateId root="2.16.840.1.897299.10.20.22.4.2& quot; /> <id nullFlavor="NA" /> <code codeSystem="local" code="MCH" displayName="MEAN CELL HGB" /> <statusCode code="completed" /> <effectiveTime value="158826986128" /> <value unit="pg" xsi:type="PQ" value="28.4" /> <referenceRange> <observationRange> < text>27.0-33.0</text> </observationRange> &lt ;/referenceRange> </observation> </component> & lt;component> <observation moodCode="EVN" classCode=&quot ;OBS"> <templateId root="2.16.840.1.373579.10.20.22.4.2 " /> <id nullFlavor="NA" /> <code codeSystem="local" code="MCHC" displayName="MEAN CELL HGB CONCENTRATION" /> <statusCode code="completed&quot ; /> <effectiveTime value="528346621967" /> <value unit="g/dL" xsi:type="PQ" value="31.4&quot ; /> <interpretationCode codeSystem="local" code=" *" /> <referenceRange> <observationRange&gt ; <text>32.0-37.0</text> </ observationRange> </referenceRange> </observation&gt ; </component> <component> <observation moodCode ="EVN" classCode="OBS"> <templateId root=& quot;2.16.840.1.085895.10..22.4.2" /> <id nullFlavor=&quot ;NA" /> <code codeSystem="local" code="MCV& quot; displayName="MEAN CELL VOLUME" /> <statusCode code="completed" /> <effectiveTime value=" 935032099583" /> <value unit="fl" xsi:type=" PQ" value="90.2" /> <referenceRange> <observationRange> <text>80.0-100.0</text> </observationRange> </referenceRange> </ observation> </component> <component> < observation moodCode="EVN" classCode="OBS"> < templateIdroot="2.16.840.1.859686.10..22.4.2" /> <id nullFlavor="NA" /> <code codeSystem="local" code="MO#" displayName="MONOCYTE #" /> < statusCode code="completed" /> <effectiveTime value=& quot;695029346931" /> <value unit="k/cumm" xsi: type="PQ" value="1.1" /> <interpretationCode codeSystem="local" code="*" /> < referenceRange> <observationRange> <text> 0.1-1.0</text> </observationRange> </ referenceRange> </observation> </component> < component> <observation moodCode="EVN" classCode=" OBS"> <templateId root="2.16.840.1.747807.10.20.22.4.2& quot; /> <id nullFlavor="NA" /> <code codeSystem="local" code="MO%" displayName=" MONOCYTE %" /> <statusCode code="completed&quot ; /> <effectiveTime value="169038203458" /> <value unit="%" xsi:type="PQ" value="8& quot; /> <interpretationCode codeSystem="local" code=& quot;*" /> <referenceRange> < observationRange> <text>4-6</text> </ observationRange> </referenceRange> </observation&gt ; </component> <component> <observation moodCode=& quot;EVN" classCode="OBS"> <templateId root=" 2.16.840.1.614745.10.20.22.4.2" /> <id nullFlavor="NA&quot ; /> <code codeSystem="local" code="RBC" displayName="RED BLOOD CELL" /> <statusCode code=" completed" /> <effectiveTime value="043040478304" /> <value unit="m/cumm" xsi:type="PQ" value=& quot;3.28" /> <interpretationCode codeSystem="local& quot; code="*" /> <referenceRange> < observationRange> <text>4.00-6.00</text> </observationRange> </referenceRange> </ observation> </component> <component> < observation moodCode="EVN" classCode="OBS"> < templateId root="2.16.840.1.844036.10.20.22.4.2" /> < id nullFlavor="NA" /> <code codeSystem="local&quot ; code="RDW" displayName="RED CELL DISTRIBUTION WIDTH" /&gt ; <statusCode code="completed" /> < effectiveTime value="001144119376" /> <value unit=&quot ;%" xsi:type="PQ" value="16.7" /> & lt;interpretationCode codeSystem="local" code="*" /> <referenceRange> <observationRange> & lt;text>11.0-15.6</text> </observationRange> </ referenceRange> </observation> </component> < component> <observation moodCode="EVN" classCode=" OBS"> <templateId root="2.16.840.1.762769.10.20.22.4.2& quot; /> <id nullFlavor="NA" /> <code codeSystem="local" code="WBC" displayName="WHITE BLOOD CELL" /> <statusCode code="completed" /> <effectiveTime value="059281276062" /> <value unit="k/cumm" xsi:type="PQ" value="14.8" /> <interpretationCode codeSystem="local" code="*" /& gt; <referenceRange> <observationRange> <text>5.0-10.0</text> </observationRange> </referenceRange> </observation> </component& gt; <component> <observation moodCode="EVN" classCode="OBS"> <templateId root=" 2.16.840.1.760062.10.20.22.4.2" /> <id nullFlavor="NA& quot; /> <code codeSystem="local" code="HGBT&quot ; displayName="HEMOGLOBIN" /> <statusCode code=" completed" /> <effectiveTime value="151810977865" /> <value unit="gm/dL" xsi:type="PQ" value=& quot;9.3" /> <interpretationCode codeSystem="local&quot ; code="*" /> <referenceRange> < observationRange> <text>12.0-16.0</text> & lt;/observationRange> </referenceRange> </ observation> </component> <component> < observation moodCode="EVN" classCode="OBS"> < templateId root="2.16.840.1.586601.10.20.22.4.2" /> <id nullFlavor="NA" /> <code codeSystem="local" code="HCTT" displayName="HEMATOCRIT" /> < statusCode code="completed" /> <effectiveTime value=& quot;559111628554" /> <value unit="%" xsi: type="PQ" value="29.6" /> < interpretationCode codeSystem="local" code="*" /> <referenceRange><observationRange> <text>37.0- 47.0</text> </observationRange> </ referenceRange> </observation> </component> < component> <observation moodCode="EVN" classCode=" OBS"> <templateId root="2.16.840.1.486800.10.20.22.4.2" /& gt; <id nullFlavor="NA" /> <code codeSystem ="local" code="PLTT" displayName="PLATELET COUNT" /> <statusCode code="completed" /> < effectiveTime value="789125772378" /> <value unit=&quot ;k/cumm" xsi:type="PQ" value="280" /> < referenceRange> <observationRange> <text> 150-450</text> </observationRange> </referenceRange& gt; </observation> </component> </organizer> & lt;/entry> <entry> <organizer moodCode="EVN" classCode ="BATTERY"> <templateId root=" 2.16.840.1.252030.10.20.22.4.1" /> <id nullFlavor="NA&quot ; /> <code codeSystem="local" code="METAB" displayName="METABOLIC PANEL, BASIC" /> <statusCode code=& quot;completed" /> <component> <observation moodCode="EVN" classCode="OBS"> <templateId root=& quot;2.16.840.1.160106.10.20.22.4.2" /> <id nullFlavor=&quot ;NA" /> <code codeSystem="local" code="K&quot ; displayName="POTASSIUM" /> <statusCode code=" completed" /> <effectiveTime value="426210332286" /> <value unit="mmol/L" xsi:type="PQ" value=& quot;5.4" /> <interpretationCode codeSystem="local&quot ; code="*" /> <referenceRange> < observationRange> <text>3.5-5.3</text> </ observationRange> </referenceRange> </observation&gt ; </component> <component> <observation moodCode ="EVN" classCode="OBS"> <templateId root=& quot;2.16.840.1.150567.10.20.22.4.2" /> <id nullFlavor=&quot ;NA" /> <code codeSystem="local" code="eGFR& quot; displayName="EST GFR (MDRD)" /> <statusCode code=" completed" /> <effectiveTime value="355332490521" /> <value unit="mL/min" xsi:type="PQ" value=& quot;16"/> <interpretationCode codeSystem="local" code="*" /><referenceRange> <observationRange& gt; <text>> 59</text> </ observationRange> </referenceRange> </observation&gt ; </component> <component> <observation moodCode ="EVN" classCode="OBS"> <templateId root=& quot;2.16.840.1.619095.10..22.4.2"/> <id nullFlavor=" NA" /> <code codeSystem="local"code="GAP&quot ; displayName="ANION GAP" /> <statusCode code=" completed" /> <effectiveTime value="186170151190" /> <value unit="mmol/L" xsi:type="PQ" value=& quot;6" /> <referenceRange> < observationRange> <text>5-15</text> </ observationRange> </referenceRange> </observation&gt ; </component> <component> <observation moodCode ="EVN" classCode="OBS"> <templateId root=& quot;2.16.840.1.624923.10.20.22.4.2" /> <id nullFlavor=&quot ;NA" /> <code codeSystem="local" code="eCrCl& quot; displayName="EST CrCl (CG)" /> <statusCode code=& quot;completed" /> <effectiveTime value="014739759178&quot ; /> <value unit="mL/min" xsi:type="PQ" value ="25" /> <interpretationCode codeSystem="local& quot; code="*" /> <referenceRange> < observationRange> <text>> 59</text> </observationRange> </referenceRange> </observation&gt ; </component> <component> <observation moodCode=& quot;EVN" classCode="OBS"> <templateIdroot=" 2.16.840.1.359605.10.20.22.4.2" /> <id nullFlavor="NA& quot; /> <code codeSystem="local" code="GLU" displayName="GLUCOSE"/> <statusCode code=" completed" /> <effectiveTime value="133187711929" /> <value unit="mg/dL" xsi:type="PQ" value=& quot;244" /> <interpretationCode codeSystem="local&quot ; code="*" /> <referenceRange> < observationRange> <text>70-99</text> < /observationRange> </referenceRange> </observation& gt; </component> <component> <observation moodCode="EVN" classCode="OBS"> <templateId root="2.16.840.1.764738.10.20.22.4.2" /> <id nullFlavor ="NA" /> <code codeSystem="local" code=" CA" displayName="CALCIUM" /> <statusCode code=& quot;completed" /> <effectiveTime value="452824832222& quot; /> <value unit="mg/dL" xsi:type="PQ" value="9.5" /> <referenceRange> < observationRange> <text>8.5-10.1</text> </ observationRange> </referenceRange> </observation&gt ; </component> <component> <observation moodCode ="EVN" classCode="OBS"> <templateId root=& quot;2.16.840.1.861855.10.20.22.4.2" /> <id nullFlavor=&quot ;NA" /> <code codeSystem="local" code="BUN& quot; displayName="BLOOD UREA NITROGEN" /> <statusCode code="completed" /> <effectiveTime value=" 535944591779" /> <value unit="mg/dL" xsi:type=& quot;PQ" value="73" /> <interpretationCode codeSystem="local" code="*" /> < referenceRange> <observationRange> <text> 7-20</text> </observationRange> </referenceRange& gt; </observation> </component> <component> <observation moodCode="EVN" classCode="OBS"> <templateId root="2.16.840.1.145929.10.20.22.4.2" /> <id nullFlavor="NA"/> <code codeSystem=" local" code="CREAT" displayName="CREATININE" /> <statusCode code="completed" /> < effectiveTime value="346429066924" /> <value unit=&quot ;mg/dL" xsi:type="PQ" value="2.9" /> < interpretationCode codeSystem="local" code="*" /> <referenceRange> <observationRange> < text>0.6-1.0</text> </observationRange> </ referenceRange> </observation> </component> < component> <observation moodCode="EVN" classCode=" OBS"> <templateId root="2.16.840.1.092051.10..22.4.2& quot; /> <id nullFlavor="NA" /> <code codeSystem="local" code="NA" displayName="SODIUM" /> <statusCode code="completed" /> < effectiveTime value="156811442230" /> <value unit="mmol/ L" xsi:type="PQ" value="135" /> < referenceRange> <observationRange> <text> 135-148</text> </observationRange> </ referenceRange> </observation> </component> < component> <observation moodCode="EVN" classCode=" OBS"> <templateId root="2.16.840.1.280201.10.20.22.4.2& quot; /> <id nullFlavor="NA" /> <code codeSystem="local" code="CL" displayName="CHLORIDE&quot ; /> <statusCode code="completed" /> < effectiveTime value="749716395236" /> <value unit=&quot ;mmol/L" xsi:type="PQ" value="101" /> < referenceRange> <observationRange> <text>98- 110</text> </observationRange> </ referenceRange> </observation> </component> < component> <observation moodCode="EVN" classCode=" OBS"> <templateId root="2.16.840.1.641280.10.20.22.4.2& quot; /> <id nullFlavor="NA" /> <code codeSystem="local" code="CO2" displayName="CARBON DIOXIDE" /> <statusCode code="completed" /> &lt ;effectiveTime value="435440609716" /> <value unit=& quot;mmol/L" xsi:type="PQ" value="28" /> & lt;referenceRange> <observationRange> <text& gt;21-32</text> </observationRange> </ referenceRange> </observation> </component> </ organizer> </entry> <entry> <organizer moodCode="EVN " classCode="BATTERY"> <templateId root=" 2.16.840.1.611852.10.20.22.4.1" /> <id nullFlavor="NA&quot ; /> <code codeSystem="local" code="HBSAG" displayName="AG HEPATITIS B SURF." /> <statusCode code=& quot;completed" /> <component> <observation moodCode="EVN" classCode="OBS"> <templateId root=& quot;2.16.840.1.957701.10.20.22.4.2" /> <id nullFlavor=&quot ;NA" /> <code codeSystem="local" code="HBSAG& quot; displayName="AG HEPATITIS B SURF." /> < statusCode code="completed" /> <effectiveTime value=" 282721726913" /> <value unit="" xsi:type="PQ& quot; value="NEGATIVE" /> <referenceRange> <observationRange> <text>NEGATIVE</text> </observationRange> </referenceRange> </ observation> </component> </organizer> </entry> & lt;entry> <organizer moodCode="EVN" classCode="BATTERY& quot;> <templateId root="2.16.840.1.501899.10.20.22.4.1" /& gt; <id nullFlavor="NA" /> <code codeSystem=" local" code="HCVAB" displayName="AB HEPATITIS C" /> <statusCode code="completed" /> <component> <observation moodCode="EVN" classCode="OBS"> < templateId root="2.16.840.1.234887.10.20.22.4.2" /> < id nullFlavor="NA" /> <code codeSystem="local&quot ; code="HCVAB" displayName="AB HEPATITIS C" /> & lt;statusCode code="completed" /> <effectiveTime value= "719210263142" /> <value unit="" xsi:type=& quot;PQ" value="NEGATIVE" /> <referenceRange> <observationRange> <text>NEGATIVE</text& gt; </observationRange> </referenceRange> </ observation> </component> </organizer> </entry> & lt;entry> <organizer moodCode="EVN" classCode="BATTERY& quot;> <templateId root="2.16.840.1.744917.10.20.22.4.1" /& gt; <id nullFlavor="NA" /> <code codeSystem=" local" code="HIV" displayName="HIV" /> < statusCode code="completed" /> <component> < observation moodCode="EVN" classCode="OBS"> < templateId root="2.16.840.1.461095.10.20.22.4.2" /> < id nullFlavor="NA" /> <code codeSystem="local" code="[id number]" displayName="AB HIV 1 2" /> & lt;statusCode code="completed" /> <effectiveTime value= "131493156514" /> <value unit="" xsi:type=& quot;PQ" value="NEGATIVE" /> <referenceRange> <observationRange> <text>NEGATIVE</text> </observationRange> </referenceRange> </ observation> </component> <component> < observation moodCode="EVN" classCode="OBS"> < templateId root="2.16.840.1.659200.10.20.22.4.2" /> < id nullFlavor="NA" /> <code codeSystem="local&quot ; code="[id number]" displayName="HIV 1 P24 AG" /> <statusCode code="completed" /> <effectiveTime value ="104839262305" /> <value unit="" xsi:type=& quot;PQ" value="NEGATIVE" /> <referenceRange> <observationRange> <text>NEGATIVE</text& gt; </observationRange> </referenceRange> < /observation> </component> </organizer> </entry> <entry> <organizer moodCode="EVN" classCode="BATTERY& quot;> <templateId root="2.16.840.1.190936.10.20.22.4.1" /& gt; <id nullFlavor="NA" /> <code codeSystem=" local" code="GHGLUMON" displayName="GLUCOSE (POC)" /&gt ; <statusCode code="completed" /> <component> <observation moodCode="EVN" classCode="OBS"> <templateId root="2.16.840.1.705699.10.20.22.4.2" /> <id nullFlavor="NA" /> <code codeSystem=" local" code="GHGLUMON" displayName="GLUCOSE (POC)" /&gt ; <statusCode code="completed" /> < effectiveTime value="045374552186" /> <value unit=&quot ;mg/dL" xsi:type="PQ" value="230" /> < interpretationCode codeSystem="local" code="*" /> < referenceRange> <observationRange> <text> 70-99</text> </observationRange> </ referenceRange> </observation> </component> </ organizer> </entry> <entry> <organizer moodCode="EVN " classCode="BATTERY"> <templateId root=" 2.16.840.1.626885.10.20.22.4.1" /> <id nullFlavor="NA&quot ; /> <code codeSystem="local" code="GHGLUMON" displayName="GLUCOSE (POC)" /> <statusCode code=" completed" /> <component> <observation moodCode=& quot;EVN" classCode="OBS"> <templateId root=" 2.16.840.1.749725.10.20.22.4.2" /> <id nullFlavor="NA& quot; /> <code codeSystem="local" code="GHGLUMON& quot; displayName="GLUCOSE (POC)" /> <statusCodecode=& quot;completed" /> <effectiveTime value="889302912642& quot; /> <value unit="mg/dL" xsi:type="PQ" value=& quot;230" /> <interpretationCode codeSystem="local&quot ; code="*" /> <referenceRange> < observationRange> <text>70-99</text> < /observationRange> </referenceRange> </observation& gt; </component> </organizer> </entry> <entry&gt ; <organizer moodCode="EVN"classCode="BATTERY"> <templateId root="2.16.840.1.547321.10.20.22.4.1" /> &lt ;id nullFlavor="NA" /> <code codeSystem="local" code="GHGLUMON" displayName="GLUCOSE (POC)" /> < statusCode code="completed" /> <component> < observation moodCode="EVN" classCode="OBS"> < templateId root="216.840.1.540146.10..22.4.2" /> <id nullFlavor="NA" /> <code codeSystem="local" code="GHGLUMON" displayName="GLUCOSE (POC)" /> & lt;statusCode code="completed" /> <effectiveTime value= "144033042335" /> <value unit="mg/dL" xsi: type="PQ" value="205" /> < interpretationCodecodeSystem="local" code="*" /> <referenceRange> <observationRange> < text>70-99</text> </observationRange> </ referenceRange> </observation> </component> </ organizer> </entry> <entry> <organizer moodCode="EVN " classCode="BATTERY"> <templateId root=" 2.16.840.1.724308.10.20.22.4.1" /> <id nullFlavor="NA&quot ; /> <code codeSystem="local" code="GHGLUMON" displayName="GLUCOSE (POC)" /> <statusCode code=" completed" /> <component> <observation moodCode=& quot;EVN" classCode="OBS"> <templateId root=" 2.16.840.1.327511.10.20.22.4.2" /> <id nullFlavor="NA& quot; /> <code codeSystem="local" code="GHGLUMON& quot; displayName="GLUCOSE (POC)" /> <statusCode code=& quot;completed" /><effectiveTime value="447614403780" /&gt ; <value unit="mg/dL" xsi:type="PQ" value=" 205" /> <interpretationCode codeSystem="local" code="*" /> <referenceRange> < observationRange> <text>70-99</text> </ observationRange> </referenceRange> </observation&gt ; </component> </organizer> </entry> <entry> <organizer moodCode="EVN" classCode="BATTERY"> <templateId root="2.16.840.1.556339.10.20.22.4.1" /> < id nullFlavor="NA" /> <code codeSystem="local" code="GHGLUMON" displayName="GLUCOSE (POC)" /> < statusCode code="completed" /> <component> < observation moodCode="EVN" classCode="OBS"> < templateId root="2.16.840.1.489478.10.20.22.4.2" /> < id nullFlavor="NA" /> <code codeSystem="local" code="GHGLUMON" displayName="GLUCOSE (POC)" /> & lt;statusCode code="completed" /> <effectiveTime value= "196121661427" /> <value unit="mg/dL" xsi: type="PQ" value="173" /> <interpretationCode codeSystem="local" code="*" /> < referenceRange> <observationRange> <text> 70-99</text> </observationRange> </ referenceRange> </observation> </component> </ organizer> </entry> <entry> <organizer moodCode="EVN " classCode="BATTERY"> <templateId root=" 2.16.840.1.750064.10.20.22.4.1" /> <id nullFlavor="NA&quot ; /> <code codeSystem="local" code="GHGLUMON" displayName="GLUCOSE (POC)" /> <statusCode code=" completed" /> <component> <observation moodCode=& quot;EVN" classCode="OBS"> <templateId root=" 2.16.840.1.911608.10.20.22.4.2" /> <id nullFlavor="NA& quot; /> <code codeSystem="local" code="GHGLUMON& quot; displayName="GLUCOSE (POC)" /> <statusCode code=" completed" /> <effectiveTime value="748879981200" /> <value unit="mg/dL" xsi:type="PQ" value=& quot;173"/> <interpretationCode codeSystem="local&quot ; code="*" /><referenceRange> <observationRange > <text>70-99</text> </ observationRange> </referenceRange> </observation&gt ; </component> </organizer> </entry> <entry> <organizer moodCode="EVN" classCode="BATTERY"> & lt;templateId root="2.16.840.1.154890.10.20.22.4.1" /> <id nullFlavor="NA" /> <code codeSystem="local" code= "GHGLUMON" displayName="GLUCOSE (POC)" /> < statusCode code="completed" /> <component> < observation moodCode="EVN" classCode="OBS"> < templateId root="2.16.840.1.312659.10.20.22.4.2" /> < id nullFlavor="NA" /> <code codeSystem="local&quot ; code="GHGLUMON" displayName="GLUCOSE (POC)" /> <statusCode code="completed" /> <effectiveTime value="130918527189" /> <value unit="mg/dL" xsi:type=& quot;PQ" value="127" /> <interpretationCode codeSystem="local" code="*" /> < referenceRange> <observationRange> <text> 70-99</text> </observationRange> </ referenceRange> </observation> </component> </ organizer> </entry> <entry> <organizer moodCode="EVN " classCode="BATTERY"> <templateId root=" 2.16.840.1.089878.10.20.22.4.1" /> <id nullFlavor="NA&quot ; /> <code codeSystem="local" code="GHGLUMON" displayName="GLUCOSE (POC)" /> <statusCode code=" completed" /> <component> <observation moodCode=& quot;EVN" classCode="OBS"> <templateId root=" [id number]" /> <id nullFlavor="NA& quot; /> <code codeSystem="local" code="GHGLUMON& quot; displayName="GLUCOSE (POC)" /> <statusCode code=& quot;completed" /> <effectiveTime value="[id number]& quot; /> <value unit="mg/dL" xsi:type="PQ" value="127" /> <interpretationCode codeSystem=" local" code="*" /> <referenceRange> <observationRange> <text>70-99</text> </observationRange> </referenceRange> </observation& gt; </component> </organizer> </entry> <entry&gt ; <organizer moodCode="EVN" classCode="BATTERY"> <templateId root="2.16.840.1.720652.10.20.22.4.1" /> & lt;id nullFlavor="NA" /> <code codeSystem="local&quot ; code="CBC" displayName="CBC" /> <statusCode code="completed" /> <component> <observation moodCode="EVN" classCode="OBS"> <templateId root="2.16.840.1.202569.10.20.22.4.2" /> <id nullFlavor ="NA" /> <code codeSystem="local" code=" MCH" displayName="MEAN CELL HGB" /> <statusCode code="completed" /> <effectiveTime value=" 738989141298" /> <value unit="pg" xsi:type=" PQ" value="28.1" /> <referenceRange> <observationRange> <text>27.0-33.0</text> </ observationRange> </referenceRange> </observation&gt ; </component> <component> <observation moodCode ="EVN" classCode="OBS"> <templateId root=& quot;2.16.840.1.547290.10.20.22.4.2" /> <id nullFlavor=&quot ;NA" /> <codecodeSystem="local" code="[facility]C& quot; displayName="MEAN CELL HGB CONCENTRATION" /> < statusCode code="completed" /> <effectiveTime value=& quot;387529581012" /> <value unit="g/dL" xsi:type= "PQ" value="30.5" /> <interpretationCode codeSystem="local" code="*"/> <referenceRange > <observationRange> <text>32.0-37.0</ text> </observationRange> </referenceRange> </observation> </component> <component> <observation moodCode="EVN" classCode="OBS"> <templateId root="2.16.840.1.223595.10.20.22.4.2" /> <id nullFlavor="NA" /> <code codeSystem=" local" code="MCV" displayName="MEAN CELL VOLUME" /> <statusCode code="completed" /> < effectiveTime value="838446994456" /> <value unit=" fl" xsi:type="PQ" value="92.1" /><referenceRange& gt; <observationRange> <text>80.0-100.0</ text> </observationRange> </referenceRange> </observation> </component> <component> <observation moodCode="EVN" classCode="OBS"> <templateId root="2.16.840.1.407581.10.20.22.4.2" /> <id nullFlavor="NA" /> <code codeSystem=" local" code="RBC" displayName="RED BLOOD CELL" /> <statusCode code="completed" /> < effectiveTime value="676840314186" /> <value unit=&quot ;m/cumm" xsi:type="PQ" value="2.67" /> < interpretationCode codeSystem="local" code="*" /> <referenceRange> <observationRange> <text& gt;4.00-6.00</text> </observationRange> </ referenceRange> </observation> </component> < component> <observation moodCode="EVN" classCode=" OBS"> <templateId root="2.16.840.1.819709.10.20.22.4.2& quot; /> <id nullFlavor="NA" /> <code codeSystem="local" code="RDW" displayName="RED CELL DISTRIBUTION WIDTH" /> <statusCode code="completed&quot ;/> <effectiveTime value="380318780938" /> <value unit="%" xsi:type="PQ" value="16.7& quot; /> <interpretationCode codeSystem="local" code=& quot;*" /> <referenceRange> < observationRange> <text>11.0-15.6</text> </observationRange> </referenceRange> </ observation> </component> <component> < observation moodCode="EVN" classCode="OBS"> < templateId root="2.16.840.1.974676.10.20.22.4.2" /> < id nullFlavor="NA" /> <code codeSystem="local&quot ; code="WBC" displayName="WHITE BLOOD CELL" /> & lt;statusCode code="completed" /> <effectiveTime value= "950959021656" /> <value unit="k/cumm" xsi: type="PQ" value="10.1" /> < interpretationCode codeSystem="local" code="*" /> <referenceRange> <observationRange> <text> 5.0-10.0</text> </observationRange> </ referenceRange> </observation> </component> < component> <observation moodCode="EVN" classCode=" OBS"> <templateId root="2.16.840.1.527961.10.20.22.4.2& quot; /> <id nullFlavor="NA" /> <code codeSystem="local" code="HGBT" displayName="HEMOGLOBIN& quot; /> <statusCode code="completed" /> < effectiveTime value="604015596060" /> <value unit=&quot ;gm/dL" xsi:type="PQ" value="7.5" /> < interpretationCode codeSystem="local" code="*" /> < referenceRange> <observationRange> <text> 12.0-16.0</text> </observationRange> </ referenceRange> </observation> </component> < component> <observation moodCode="EVN" classCode=" OBS"> <templateId root="2.16.840.1.493096.10.20.22.4.2& quot;/> <id nullFlavor="NA" /> <code codeSystem="local"code="HCTT" displayName="HEMATOCRIT& quot; /> <statusCode code="completed" /> & lt;effectiveTime value="792172763720" /> <value unit=& quot;%" xsi:type="PQ" value="24.6" /> <interpretationCode codeSystem="local" code="*" /&gt ; <referenceRange> <observationRange> & lt;text>37.0-47.0</text> </observationRange> </referenceRange> </observation> </component> <component> <observation moodCode="EVN" classCode=& quot;OBS"> <templateId root=" 2.16.840.1.960462.10.20.22.4.2" /> <id nullFlavor="NA& quot; /> <code codeSystem="local" code="PLTT&quot ; displayName="PLATELET COUNT" /> <statusCode code=& quot;completed" /> <effectiveTime value="439110853360" / > <value unit="k/cumm" xsi:type="PQ" value=& quot;224" /> <referenceRange> < observationRange> <text>150-450</text> & lt;/observationRange> </referenceRange> </ observation> </component> </organizer> </entry> & lt;entry> <organizer moodCode="EVN" classCode="BATTERY& quot;> <templateId root="2.16.840.1.143542.10.20.22.4.1" /& gt; <id nullFlavor="NA" /> <code codeSystem=" local" code="METAB" displayName="METABOLIC PANEL, BASIC&quot ; /> <statusCode code="completed" /> <component& gt; <observation moodCode="EVN" classCode="OBS"&gt ; <templateId root="2.16.840.1.135011.10..22.4.2" /> <id nullFlavor="NA" /> <code codeSystem=& quot;local" code="K" displayName="POTASSIUM" /> <statusCode code="completed" /> < effectiveTime value="599753167408" /> <value unit=&quot ;mmol/L" xsi:type="PQ" value="5.2" /> < referenceRange> <observationRange> <text> 3.5-5.3</text> </observationRange> </referenceRange& gt; </observation> </component> <component> <observation moodCode="EVN" classCode="OBS"> <templateId root="2.16.840.1.890645.10.20.22.4.2" /> <id nullFlavor="NA" /> <code codeSystem=&quot ;local" code="eGFR" displayName="EST GFR (MDRD)" /> <statusCode code="completed" /> < effectiveTime value="151868441695" /> <value unit=&quot ;mL/min" xsi:type="PQ" value="15" /> < interpretationCode codeSystem="local" code="*" /> <referenceRange> <observationRange> < text>> 59</text> </observationRange> & lt;/referenceRange> </observation> </component> & lt;component> <observation moodCode="EVN" classCode=&quot ;OBS"> <templateId root="2.16.840.1.926410.10.20.22.4.2 " /> <id nullFlavor="NA" /> <code codeSystem="local" code="GAP" displayName="ANION GAP& quot; /> <statusCode code="completed" /> & lt;effectiveTime value="742924417485" /> <value unit=& quot;mmol/L" xsi:type="PQ" value="7" /> < referenceRange> <observationRange> <text> 5-15</text> </observationRange> </ referenceRange> </observation> </component> < component> <observation moodCode="EVN" classCode=" OBS"> <templateId root="2.16.840.1.243247.10..22.4.2& quot; /> <id nullFlavor="NA" /> <code codeSystem="local" code="eCrCl" displayName="EST CrCl ( CG)" /> <statusCode code="completed" /> <effectiveTime value="825614617045" /> <value unit="mL/min" xsi:type="PQ" value="23" /> <interpretationCode codeSystem="local" code="*" /&gt ; <referenceRange> <observationRange> < text>> 59</text> </observationRange> & lt;/referenceRange> </observation> </component> & lt;component> <observation moodCode="EVN" classCode=&quot ;OBS"> <templateId root="2.16.840.1.502119.10.20.22.4.2& quot; /> <id nullFlavor="NA" /> <code codeSystem="local" code="GLU" displayName="GLUCOSE&quot ; /> <statusCode code="completed" /> < effectiveTime value="201898776805" /> <value unit=&quot ;mg/dL" xsi:type="PQ" value="110" /> < interpretationCode codeSystem="local" code="*" /> <referenceRange> <observationRange> <text> 70-99</text> </observationRange> </ referenceRange> </observation> </component> < component> <observation moodCode="EVN" classCode=" OBS"> <templateId root="2.16.840.1.873887.10.20.22.4.2& quot; /> <id nullFlavor="NA" /> <code codeSystem="local" code="CA" displayName="CALCIUM&quot ; /> <statusCode code="completed" /> < effectiveTime value="990214759673" /> <value unit=&quot ;mg/dL" xsi:type="PQ" value="8.3" /> < interpretationCode codeSystem="local" code="*" /> <referenceRange> <observationRange> < text>8.5-10.1</text> </observationRange> </ referenceRange> </observation> </component> < component> <observation moodCode="EVN" classCode=" OBS"> <templateId root="2.16.840.1.394690.10.20.22.4.2& quot; /> <id nullFlavor="NA" /> <code codeSystem="local" code="BUN" displayName="BLOOD UREA NITROGEN" /> <statusCode code="completed" /> <effectiveTime value="666110216305" /> < valueunit="mg/dL" xsi:type="PQ" value="76" /> <interpretationCode codeSystem="local" code="*" /> <referenceRange> <observationRange> < text>7-20</text> </observationRange> </ referenceRange> </observation> </component> < component> <observation moodCode="EVN" classCode=" OBS"> <templateId root="2.16.840.1.116563.10.20.22.4.2& quot; /> <id nullFlavor="NA" /> <code codeSystem="local" code="CREAT" displayName="CREATININE " /> <statusCode code="completed" /> & lt;effectiveTime value="027397482788" /> <value unit=& quot;mg/dL" xsi:type="PQ" value="3.1" /> & lt;interpretationCode codeSystem="local" code="*" /> <referenceRange> <observationRange> <text> 0.6-1.0</text> </observationRange> </ referenceRange> </observation> </component> < component> <observation moodCode="EVN" classCode=" OBS"> <templateId root="2.16.840.1.049252.10.20.22.4.2& quot; /> <id nullFlavor="NA" /> <code codeSystem="local" code="NA" displayName="SODIUM" /> <statusCode code="completed" /> < effectiveTime value="395737416517" /> <value unit=&quot ;mmol/L" xsi:type="PQ" value="137" /> < referenceRange> <observationRange> <text> 135-148</text> </observationRange> </ referenceRange> </observation> </component> < component> <observation moodCode="EVN" classCode=" OBS"> <templateId root="2.16.840.1.174874.10..22.4.2& quot; /> <id nullFlavor="NA" /> <code codeSystem="local" code="CL" displayName="CHLORIDE&quot ; /> <statusCode code="completed" /> < effectiveTime value="860208564490" /> <value unit=&quot ;mmol/L" xsi:type="PQ" value="104" /> < referenceRange> <observationRange> <text> 98-110</text> </observationRange> </ referenceRange> </observation> </component> < component> <observation moodCode="EVN" classCode=" OBS"> <templateId root="2.16.840.1.828828.10.20.22.4.2& quot; /> <idnullFlavor="NA" /> <code codeSystem="local" code="CO2" displayName="CARBON DIOXIDE" /> <statusCode code="completed" /> <effectiveTime value="046339658963" /> <value unit="mmol/L" xsi:type="PQ" value="26" /> <referenceRange> <observationRange> &lt ;text>21-32</text> </observationRange> </ referenceRange> </observation> </component> </ organizer> </entry> <entry> <organizer moodCode="EVN " classCode="BATTERY"> <templateId root=" 2.16.840.1.596750.10.20.22.4.1" /> <id nullFlavor="NA&quot ; /> <code codeSystem="local" code="CBC" displayName="CBC" /> <statusCode code="completed&quot ; /> <component> <observation moodCode="EVN" classCode="OBS"> <templateId root=" 2.16.840.1.231978.10.20.22.4.2" /> <id nullFlavor="NA& quot; /> <code codeSystem="local" code="MCH" displayName="MEAN CELL HGB" /> <statusCode code=" completed" /> <effectiveTime value="360367108912" /> <value unit="pg" xsi:type="PQ"value=" 28.1" /> <referenceRange> <observationRange > <text>27.0-33.0</text> </observationRange > </referenceRange> </observation> </ component> <component> <observation moodCode="EVN& quot; classCode="OBS"> <templateId root=" 2.16.840.1.780174.10.20.22.4.2" /> <id nullFlavor="NA& quot; /> <code codeSystem="local" code="[facility]C&quot ; displayName="MEAN CELL HGB CONCENTRATION" /> < statusCode code="completed" /> <effectiveTime value=& quot;135730514149" /> <value unit="g/dL" xsi:type= "PQ" value="30.5" /> <interpretationCode codeSystem="local" code="*" /> < referenceRange> <observationRange> <text> 32.0-37.0</text> </observationRange> </ referenceRange> </observation> </component> < component> <observation moodCode="EVN" classCode=" OBS"> <templateId root="2.16.840.1.057570.10.20.22.4.2& quot; /> <id nullFlavor="NA" /> <code codeSystem="local" code="MCV" displayName="MEAN CELL VOLUME" /> <statusCode code="completed" /> <effectiveTime value="039735459613" /> <value unit="fl" xsi:type="PQ" value="92.1" /> & lt;referenceRange> <observationRange> <text& gt;80.0-100.0</text> </observationRange> </ referenceRange> </observation> </component> < component> <observation moodCode="EVN" classCode=" OBS"> <templateId root="2.16.840.1.985129.10.20.22.4.2& quot; /> <id nullFlavor="NA" /> <code codeSystem="local" code="RBC" displayName="RED BLOOD CELL" /> <statusCode code="completed" /> <effectiveTime value="561091040437" /><value unit="m /cumm" xsi:type="PQ" value="2.67" /> < interpretationCode codeSystem="local" code="*" /> <referenceRange> <observationRange> < text>4.00-6.00</text> </observationRange> &lt ;/referenceRange> </observation> </component> & lt;component> <observation moodCode="EVN" classCode=&quot ;OBS"> <templateId root="2.16.840.1.551120.10.20.22.4.2 " /> <idnullFlavor="NA" /> <code codeSystem="local" code="RDW" displayName="RED CELL DISTRIBUTION WIDTH" /> <statusCode code="completed&quot ; /> <effectiveTime value="671094025084" /> <value unit="%" xsi:type="PQ" value="16.7& quot; /> <interpretationCode codeSystem="local" code=& quot;*" /> <referenceRange> <observationRange> <text>11.0-15.6</text> </observationRange& gt; </referenceRange> </observation> </ component><component> <observation moodCode="EVN" classCode="OBS"> <templateId root=" 2.16.840.1.249303.10.20.22.4.2" /> <id nullFlavor="NA& quot; /> <code codeSystem="local" code="WBC" displayName="WHITE BLOOD CELL" /> <statusCode code=& quot;completed" /> <effectiveTime value="324781674823& quot; /> <value unit="k/cumm" xsi:type="PQ" value="10.1" /> <interpretationCode codeSystem=" local" code="*" /> <referenceRange> <observationRange> <text>5.0-10.0</text> </observationRange> </referenceRange> </ observation> </component> <component> < observation moodCode="EVN" classCode="OBS"> < templateId root="2.16.840.1.561811.10.20.22.4.2" /> < id nullFlavor="NA" /> <code codeSystem="local" code=& quot;HGBT" displayName="HEMOGLOBIN" /> < statusCode code="completed" /> <effectiveTime value=& quot;164777755089" /> <value unit="gm/dL" xsi:type ="PQ" value="7.5" /> <interpretationCode codeSystem="local" code="*" /> <referenceRange > <observationRange> <text>12.0-16.0</ text> </observationRange> </referenceRange> </observation> </component> <component> <observation moodCode="EVN" classCode="OBS"> <templateId root="2.16.840.1.172296.10.20.22.4.2" /> <id nullFlavor="NA" /> <code codeSystem=" local" code="HCTT" displayName="HEMATOCRIT" /> <statusCode code="completed" /> <effectiveTime value="485429455468" /> <value unit="%& quot; xsi:type="PQ" value="24.6" /> < interpretationCode codeSystem="local" code="*" /> <referenceRange> <observationRange> < text>37.0-47.0</text> </observationRange> &lt ;/referenceRange> </observation> </component> & lt;component> <observation moodCode="EVN" classCode=&quot ;OBS"> <templateId root="2.16.840.1.468132.10..22.4.2 " /> <id nullFlavor="NA" /> <code codeSystem="local" code="PLTT" displayName="PLATELET COUNT" /> <statusCode code="completed" /> <effectiveTime value="065649263004" /> <value unit="k/cumm" xsi:type="PQ" value="224" /> <referenceRange> <observationRange> <text> 150-450</text> </observationRange> </ referenceRange> </observation> </component> </ organizer> </entry> <entry> <organizer moodCode="EVN " classCode="BATTERY"> <templateId root=" 2.16.840.1.480564.10..22.4.1" /> <id nullFlavor="NA&quot ; /> <code codeSystem="local" code="METAB" displayName="METABOLIC PANEL, BASIC" /> <statusCode code=& quot;completed" /> <component> <observation moodCode="EVN" classCode="OBS"> <templateId root="2.16.840.1.256824.10.20.22.4.2" /> <id nullFlavor ="NA" /> <code codeSystem="local" code=" K" displayName="POTASSIUM" /> <statusCode code=& quot;completed" /> <effectiveTime value="223342881395" /& gt; <value unit="mmol/L"xsi:type="PQ" value=& quot;5.2" /> <referenceRange> < observationRange> <text>3.5-5.3</text> & lt;/observationRange> </referenceRange> </ observation> </component> <component> < observation moodCode="EVN" classCode="OBS"> < templateId root="2.16.840.1.780564.10.20.22.4.2" /> < id nullFlavor="NA" /> <code codeSystem="local&quot ; code="eGFR" displayName="ESTGFR (MDRD)" /> &lt ;statusCode code="completed" /> <effectiveTime value=& quot;712417295180" /> <value unit="mL/min" xsi: type="PQ" value="15" /> <interpretationCode codeSystem="local" code="*" /> < referenceRange> <observationRange> <text>> 59& lt;/text> </observationRange> </referenceRange& gt; </observation> </component> <component> <observation moodCode="EVN" classCode="OBS"> <templateId root="2.16.840.1.430049.10.20.22.4.2" /> <id nullFlavor="NA" /> <code codeSystem=&quot ;local" code="GAP" displayName="ANION GAP" /> <statusCode code="completed" /> <effectiveTime value="776616849657" /> <value unit="mmol/L" xsi:type="PQ" value="7" /> <referenceRange&gt ; <observationRange> <text>5-15</text&gt ; </observationRange> </referenceRange> & lt;/observation> </component> <component> < observation moodCode="EVN" classCode="OBS"> < templateId root="2.16.840.1.490814.10..22.4.2" /> < id nullFlavor="NA" /> <code codeSystem="local&quot ; code="eCrCl" displayName="EST CrCl (CG)" /> & lt;statusCode code="completed" /> <effectiveTime value= "049438151138" /> <value unit="mL/min" xsi: type="PQ" value="23" /> <interpretationCode codeSystem="local" code="*" /> < referenceRange> <observationRange> <text>& amp;gt; 59</text> </observationRange> </ referenceRange> </observation> </component> < component> <observation moodCode="EVN" classCode=" OBS"> <templateId root="2.16.840.1.809395.10..22.4.2& quot; /> <id nullFlavor="NA" /> <code codeSystem="local" code="GLU" displayName="GLUCOSE&quot ; /> <statusCode code="completed" /> < effectiveTime value="919826304405" /> <value unit=&quot ;mg/dL" xsi:type="PQ" value="110" /> < interpretationCode codeSystem="local" code="*" /> <referenceRange> <observationRange> < text>70-99</text> </observationRange> </ referenceRange> </observation> </component> < component> <observation moodCode="EVN" classCode=" OBS"> <templateId root="2.16.840.1.829334.10.20.22.4.2& quot; /> <id nullFlavor="NA" /> <code codeSystem="local" code="CA" displayName="CALCIUM&quot ; /> <statusCode code="completed" /> < effectiveTime value="403455095737" /> <value unit=&quot ;mg/dL" xsi:type="PQ" value="8.3" /> < interpretationCode codeSystem="local" code="*" /> < referenceRange> <observationRange> <text> 8.5-10.1</text> </observationRange> </ referenceRange> </observation> </component> < component> <observation moodCode="EVN" classCode=" OBS"> <templateId root="2.16.840.1.534995.10.20.22.4.2& quot; /> <id nullFlavor="NA" /> <code codeSystem="local" code="BUN" displayName="BLOOD UREA NITROGEN" /> <statusCode code="completed" /> <effectiveTime value="062286397737" /> < value unit="mg/dL" xsi:type="PQ" value="76" /> <interpretationCode codeSystem="local" code="*&quot ; /> <referenceRange> <observationRange> <text>7-20</text> </observationRange> </referenceRange> </observation> </component> & lt;component> <observation moodCode="EVN" classCode=&quot ;OBS"> <templateId root="2.16.840.1.173783.10.20.22.4.2&quot ; /> <id nullFlavor="NA" /> <code codeSystem="local" code="CREAT" displayName="CREATININE " /> <statusCode code="completed" /> & lt;effectiveTime value="480540991053" /> <value unit=& quot;mg/dL" xsi:type="PQ" value="3.1" /> & lt;interpretationCode codeSystem="local" code="*" /> <referenceRange> <observationRange> < text>0.6-1.0</text> </observationRange> </ referenceRange> </observation> </component> < component> <observation moodCode="EVN" classCode=" OBS"> <templateId root="2.16.840.1.591583.10.20.22.4.2& quot; /> <id nullFlavor="NA" /> <code codeSystem="local" code="NA" displayName="SODIUM" /> <statusCode code="completed" /> < effectiveTime value="461867858343" /> <value unit=&quot ;mmol/L" xsi:type="PQ" value="137" /> < referenceRange> <observationRange> <text> 135-148</text> </observationRange> </ referenceRange> </observation> </component> < component> <observation moodCode="EVN" classCode=" OBS"> <templateId root="2.16.840.1.956317.10.20.22.4.2& quot; /> <id nullFlavor="NA" /> <code codeSystem="local" code="CL" displayName="CHLORIDE&quot ; /> <statusCode code="completed" /> < effectiveTime value="518975096831" /> <value unit=&quot ;mmol/L" xsi:type="PQ" value="104" /> < referenceRange> <observationRange> <text> 98-110</text> </observationRange> </referenceRange&gt ; </observation> </component> <component> <observation moodCode="EVN" classCode="OBS"> <templateId root="2.16.840.1.485425.10.20.22.4.2" />< id nullFlavor="NA" /> <code codeSystem="local&quot ; code="CO2" displayName="CARBON DIOXIDE" /> &lt ;statusCode code="completed" /> <effectiveTime value=& quot;405586934436" /> <value unit="mmol/L" xsi: type="PQ" value="26" /> <referenceRange> <observationRange> <text>21-32</text> </observationRange> </referenceRange> </ observation> </component> </organizer> </entry> & lt;entry> <organizer moodCode="EVN" classCode="BATTERY& quot;> <templateId root="2.16.840.1.469200.10.20.22.4.1" /& gt; <id nullFlavor="NA" /> <code codeSystem="local& quot; code="GHGLUMON" displayName="GLUCOSE (POC)" /> <statusCode code="completed" /> <component> <observation moodCode="EVN" classCode="OBS"> <templateId root="2.16.840.1.209608.10.20.22.4.2" /> & lt;id nullFlavor="NA" /> <code codeSystem="local& quot; code="GHGLUMON" displayName="GLUCOSE (POC)" /> <statusCode code="completed" /> < effectiveTime value="433304920176" /> <value unit=&quot ;mg/dL" xsi:type="PQ" value="176" /> < interpretationCode codeSystem="local" code="*" /> <referenceRange> <observationRange> < text>70-99</text> </observationRange> </ referenceRange> </observation> </component> </ organizer> </entry> <entry> <organizer moodCode="EVN " classCode="BATTERY"> <templateId root=" 2.16.840.1.266851.10.20.22.4.1" /> <id nullFlavor="NA&quot ; /> <code codeSystem="local" code="GHGLUMON" displayName="GLUCOSE (POC)" /> <statusCode code=" completed" /> <component> <observation moodCode=& quot;EVN" classCode="OBS"> <templateId root=" 2.16.840.1.153566.10.20.22.4.2" /> <id nullFlavor="NA& quot; /> <code codeSystem="local" code="GHGLUMON& quot; displayName="GLUCOSE (POC)" /> <statusCode code=& quot;completed" /> <effectiveTime value="395933231886& quot; /> <value unit="mg/dL" xsi:type="PQ" value="176" /> <interpretationCode codeSystem=" local" code="*" /> <referenceRange> <observationRange> <text>70-99</text> </ observationRange> </referenceRange> </observation&gt ; </component> </organizer> </entry> <entry> <organizer moodCode="EVN" classCode="BATTERY"> <templateId root="2.16.840.1.437877.10.20.22.4.1" /> < id nullFlavor="NA" /> <code codeSystem="local" code= "GHGLUMON" displayName="GLUCOSE (POC)" /> < statusCode code="completed" /> <component> < observation moodCode="EVN" classCode="OBS"> < templateId root="2.16.840.1.959554.10.20.22.4.2" /> < id nullFlavor="NA" /> <code codeSystem="local&quot ; code="GHGLUMON" displayName="GLUCOSE (POC)" /> <statusCode code="completed" /> <effectiveTime value="307794162235" /> <value unit="mg/dL" xsi:type="PQ" value="162" /> < interpretationCode codeSystem="local" code="*" /> <referenceRange> <observationRange> < text>70-99</text> </observationRange> </ referenceRange> </observation> </component> </ organizer> </entry> <entry> <organizer moodCode="EVN " classCode="BATTERY"> <templateId root=" 2.16.840.1.236710.10.20.22.4.1" /> <id nullFlavor="NA&quot ; /> <code codeSystem="local" code="GHGLUMON" displayName="GLUCOSE (POC)" /> <statusCode code=" completed" /> <component> <observation moodCode=& quot;EVN" classCode="OBS"> <templateId root=" [id number]" /> <id nullFlavor="NA& quot; /> <code codeSystem="local" code="GHGLUMON& quot; displayName="GLUCOSE (POC)" /> <statusCode code=& quot;completed" /> <effectiveTime value="[id number]& quot; /> <value unit="mg/dL" xsi:type="PQ" value="162" /> <interpretationCode codeSystem="local& quot; code="*" /> <referenceRange> < observationRange> <text>70-99</text> </ observationRange> </referenceRange> </observation&gt ; </component> </organizer> </entry> <entry> <organizer moodCode="EVN" classCode="BATTERY"> <templateId root="2.16.840.1.256904.10.20.22.4.1" /> < id nullFlavor="NA" /> <code codeSystem="local" code="GHGLUMON" displayName="GLUCOSE (POC)" /> < statusCode code="completed" /> <component> < observation moodCode="EVN" classCode="OBS"> < templateId root="2.16.840.1.310837.10.20.22.4.2" /> <id nullFlavor="NA" /> <code codeSystem="local" code="GHGLUMON" displayName="GLUCOSE (POC)" /> & lt;statusCode code="completed" /> <effectiveTime value= "087374129037" /> <valueunit="mg/dL" xsi:type ="PQ" value="138" /> <interpretationCode codeSystem="local" code="*" /> < referenceRange> <observationRange> <text>70-99</ text> </observationRange> </referenceRange> </observation> </component> </organizer> </ entry> <entry> <organizer moodCode="EVN" classCode=& quot;BATTERY"> <templateId root=" 2.16.840.1.739842.10.20.22.4.1" /> <id nullFlavor="NA&quot ; /> <code codeSystem="local" code="GHGLUMON" displayName="GLUCOSE (POC)" /> <statusCode code=" completed" /> <component> <observation moodCode=& quot;EVN" classCode="OBS"> <templateId root=" 2.16.840.1.434932.10.20.22.4.2" /> <id nullFlavor="NA& quot; /> <code codeSystem="local" code="GHGLUMON& quot; displayName="GLUCOSE (POC)" /> <statusCode code=& quot;completed" /> <effectiveTime value="290254731049&quot ; /> <value unit="mg/dL" xsi:type="PQ" value= "138" /> <interpretationCode codeSystem="local& quot; code="*" /> <referenceRange> < observationRange> <text>70-99</text> < /observationRange> </referenceRange> </observation& gt; </component> </organizer> </entry> <entry&gt ; <organizer moodCode="EVN" classCode="BATTERY"> <templateId root="2.16.840.1.727100.10.20.22.4.1" /> < id nullFlavor="NA" /> <code codeSystem="local" code="METAB" displayName="METABOLIC PANEL, BASIC" /> <statusCode code="completed" /> <component> <observation moodCode="EVN" classCode="OBS"> <templateId root="2.16.840.1.230666.10.20.22.4.2" /> & lt;id nullFlavor="NA" /> <code codeSystem="local& quot; code="K" displayName="POTASSIUM" /> < statusCode code="completed" /> <effectiveTime value=& quot;678000822554" /> <value unit="mmol/L" xsi: type="PQ" value="5.3" /> <referenceRange> <observationRange> <text>3.5-5.3</text> </observationRange> </referenceRange> < /observation> </component> <component> < observation moodCode="EVN" classCode="OBS"> < templateId root="2.16.840.1.904812.10.20.22.4.2" /> < id nullFlavor="NA" /> <code codeSystem="local&quot ; code="eGFR" displayName="EST GFR (MDRD)" /> &lt ;statusCode code="completed" /> <effectiveTime value=& quot;736679496388" /> <value unit="mL/min" xsi: type="PQ" value="17" /> <interpretationCode codeSystem="local" code="*" /> <referenceRange& gt; <observationRange> <text>> 59< /text> </observationRange> </referenceRange> </observation> </component> <component> <observation moodCode="EVN" classCode="OBS"> <templateId root="2.16.840.1.110832.10.20.22.4.2" /> <id nullFlavor="NA" /> <code codeSystem=" local" code="GAP" displayName="ANION GAP" /> <statusCode code="completed" /> <effectiveTime value="370646541581" /> <value unit="mmol/L" xsi:type="PQ" value="9" /> <referenceRange&gt ; <observationRange> <text>5-15</text> </observationRange> </referenceRange> </ observation> </component> <component> < observation moodCode="EVN" classCode="OBS"> < templateId root="2.16.840.1.838188.10.20.22.4.2" /> < id nullFlavor="NA" /> <code codeSystem="local&quot ; code="eCrCl" displayName="EST CrCl (CG)" /> & lt;statusCode code="completed" /> <effectiveTime value= "445411752592" /> <value unit="mL/min" xsi: type="PQ" value="27" /> <interpretationCode codeSystem="local" code="*" /> < referenceRange> <observationRange> <text> > 59</text> </observationRange> </ referenceRange> </observation> </component> < component> <observation moodCode="EVN" classCode=" OBS"> <templateId root="2.16.840.1.031100.10.20.22.4.2& quot; /> <id nullFlavor="NA" /> <code codeSystem="local" code="GLU" displayName="GLUCOSE&quot ; /> <statusCode code="completed" /> < effectiveTime value="698527681321" /> <value unit=&quot ;mg/dL" xsi:type="PQ" value="107" /> < interpretationCode codeSystem="local" code="*" /> <referenceRange> <observationRange> < text>70-99</text> </observationRange> </ referenceRange> </observation> </component> < component> <observation moodCode="EVN" classCode=" OBS"> <templateId root="2.16.840.1.780775.10.20.22.4.2& quot; /> <id nullFlavor="NA" /> <code codeSystem="local" code="CA" displayName="CALCIUM&quot ; /> <statusCode code="completed" /> < effectiveTime value="933905459897" /><value unit="mg/dL& quot; xsi:type="PQ" value="8.5" /> < referenceRange> <observationRange> <text> 8.5-10.1</text> </observationRange> </ referenceRange> </observation></component> < component> <observation moodCode="EVN" classCode=" OBS"> <templateId root="2.16.840.1.479121.10.20.22.4.2& quot; /> <id nullFlavor="NA" /> <code codeSystem="local" code="BUN" displayName="BLOOD UREA NITROGEN" /> <statusCode code="completed" /> <effectiveTime value="531577790670" /> < value unit="mg/dL" xsi:type="PQ" value="85" /> <interpretationCode codeSystem="local" code="*&quot ; /> <referenceRange><observationRange> &lt ;text>7-20</text> </observationRange> </ referenceRange> </observation> </component> < component> <observation moodCode="EVN" classCode=" OBS"> <templateId root="2.16.840.1.397234.10..22.4.2& quot; /> <id nullFlavor="NA" /> <code codeSystem="local" code="CREAT" displayName="CREATININE " /> <statusCode code="completed" /> & lt;effectiveTime value="142513434675" /> <value unit=& quot;mg/dL" xsi:type="PQ" value="2.7" /> & lt;interpretationCode codeSystem="local" code="*" /> <referenceRange> <observationRange> <text>0.6 -1.0</text> </observationRange> </ referenceRange> </observation> </component> < component> <observationmoodCode="EVN" classCode="OBS "> <templateId root="2.16.840.1.203571.10.20.22.4.2& quot; /> <id nullFlavor="NA" /> <code codeSystem="local" code="NA" displayName="SODIUM" /> <statusCode code="completed" /> < effectiveTime value="148699849020" /> <value unit=&quot ;mmol/L" xsi:type="PQ" value="135" /> < referenceRange> <observationRange> <text> 135-148</text> </observationRange> </ referenceRange> </observation> </component> < component> <observation moodCode="EVN"classCode="OBS "> <templateId root="2.16.840.1.931147.10.20.22.4.2& quot; /> <id nullFlavor="NA" /> <code codeSystem="local" code="CL" displayName="CHLORIDE&quot ; /> <statusCode code="completed" /> < effectiveTime value="966518870756" /> <value unit=&quot ;mmol/L" xsi:type="PQ" value="103" /> < referenceRange> <observationRange> <text> 98-110</text> </observationRange> </ referenceRange> </observation> </component> < component> <observation moodCode="EVN" classCode=" OBS"> <templateId root="2.16.840.1.993370.10..22.4.2& quot; /> <id nullFlavor="NA" /> <code codeSystem="local" code="CO2" displayName="CARBON DIOXIDE" /> <statusCode code="completed" /> <effectiveTime value="283403380387" /> <value unit="mmol/L" xsi:type="PQ" value="23" /> <referenceRange> <observationRange> &lt ;text>21-32</text> </observationRange> </ referenceRange> </observation> </component> </ organizer> </entry> <entry> <organizer moodCode="EVN " classCode="BATTERY"> <templateId root=" 2.16.840.1.842283.10..22.4.1" /> <idnullFlavor="NA" /> <code codeSystem="local" code="CBC" displayName="CBC" /> <statusCode code="completed&quot ; /> <component> <observation moodCode="EVN" classCode="OBS"> <templateId root=" 2.16.840.1.490008.10..22.4.2" /> <id nullFlavor="NA& quot;/> <code codeSystem="local" code="MCH" displayName="MEAN CELL HGB" /> <statusCode code=" completed" /> <effectiveTimevalue="044963672154" / > <value unit="pg" xsi:type="PQ" value=" 28.2" /> <referenceRange> <observationRange > <text>27.0-33.0</text> </observationRange& gt; </referenceRange> </observation> </ component> <component> <observation moodCode="EVN& quot; classCode="OBS"> <templateId root=" 2.16.840.1.895198.10.20.22.4.2" /> <id nullFlavor="NA& quot; /> <code codeSystem="local" code="MCHC&quot ; displayName="MEAN CELL HGB CONCENTRATION" /> < statusCode code="completed" /> <effectiveTime value=& quot;962263892391" /> <value unit="g/dL" xsi:type= "PQ" value="30.9" /> <interpretationCode codeSystem="local" code="*" /> < referenceRange> <observationRange> <text> 32.0-37.0</text> </observationRange> </ referenceRange> </observation> </component> < component> <observation moodCode="EVN" classCode=" OBS"> <templateId root="2.16.840.1.412736.10.20.22.4.2& quot; /> <id nullFlavor="NA" /> <code codeSystem="local" code="MCV" displayName="MEAN CELL VOLUME" /> <statusCode code="completed" /> <effectiveTime value="335894927861"/> <value unit="fl" xsi:type="PQ" value="91.4" /> & lt;referenceRange> <observationRange> <text& gt;80.0-100.0</text> </observationRange> </ referenceRange> </observation> </component> < component> <observation moodCode="EVN" classCode=" OBS"> <templateId root="2.16.840.1.475571.10.20.22.4.2& quot; /> <id nullFlavor="NA" /> <code codeSystem="local" code="RBC" displayName="RED BLOOD CELL" /> <statusCode code="completed" /> <effectiveTime value="952748915253" /> <value unit="m/cumm" xsi:type="PQ" value="2.80" /> <interpretationCode codeSystem="local" code="*" /& gt; <referenceRange> <observationRange> <text>4.00-6.00</text> </observationRange> </referenceRange> </observation> </component& gt; <component> <observation moodCode="EVN" classCode="OBS"> <templateId root=" 2.16.840.1.235353.10.20.22.4.2" /> <id nullFlavor="NA& quot; /> <code codeSystem="local" code="RDW" displayName="RED CELL DISTRIBUTION WIDTH" /> < statusCode code="completed" /> <effectiveTime value=& quot;759438665841" /> <value unit="%" xsi: type="PQ" value="16.6" /> < interpretationCode codeSystem="local" code="*" /> <referenceRange> <observationRange> <text>11.0 -15.6</text> </observationRange> </ referenceRange> </observation> </component> < component> <observation moodCode="EVN" classCode=" OBS"> <templateId root="2.16.840.1.760505.10.20.22.4.2" / > <id nullFlavor="NA" /> <code codeSystem="local" code="WBC" displayName="WHITE BLOOD CELL" /> <statusCode code="completed" /> <effectiveTime value="894214929794" /> <value unit="k/cumm" xsi:type="PQ" value="9.3" /> <referenceRange> <observationRange> & lt;text>5.0-10.0</text> </observationRange> </ referenceRange> </observation> </component> < component> <observation moodCode="EVN" classCode=" OBS"> <templateId root="2.16.840.1.627772.10.20.22.4.2& quot; /> <id nullFlavor="NA"/> <code codeSystem="local" code="HGBT" displayName="HEMOGLOBIN& quot; /> <statusCode code="completed" /> & lt;effectiveTime value="829089983887" /> <value unit=& quot;gm/dL" xsi:type="PQ"value="7.9" /> &lt ;interpretationCode codeSystem="local" code="*" /> <referenceRange> <observationRange> < text>12.0-16.0</text> </observationRange> &lt ;/referenceRange> </observation> </component> < component> <observation moodCode="EVN" classCode=" OBS"> <templateId root="2.16.840.1.374753.10.20.22.4.2& quot; /> <id nullFlavor="NA" /> <code codeSystem="local" code="HCTT" displayName="HEMATOCRIT& quot; /> <statusCode code="completed" /> & lt;effectiveTime value="832913910050" /> <value unit=& quot;%" xsi:type="PQ" value="25.6" /> <interpretationCode codeSystem="local" code="*" /> <referenceRange> <observationRange> <text>37.0-47.0</text> </observationRange> </referenceRange> </observation> </component> <component> <observation moodCode="EVN" classCode=& quot;OBS"> <templateId root=" 2.16.840.1.468321.10.20.22.4.2" /> <id nullFlavor="NA&quot ; /> <code codeSystem="local" code="PLTT" displayName="PLATELET COUNT" /> <statusCode code=" completed" /> <effectiveTime value="067663403460" /> <value unit="k/cumm" xsi:type="PQ" value=& quot;249" /> <referenceRange> < observationRange> <text>150-450</text> & lt;/observationRange> </referenceRange> </ observation> </component> </organizer> </entry> & lt;entry> <organizer moodCode="EVN"classCode="BATTERY& quot;> <templateId root="2.16.840.1.924112.10.20.22.4.1" /& gt; <id nullFlavor="NA" /> <code codeSystem=" local" code="METAB" displayName="METABOLIC PANEL, BASIC&quot ; /> <statusCode code="completed" /> <component& gt; <observation moodCode="EVN" classCode="OBS"&gt ; <templateId root="2.16.840.1.044245.10.20.22.4.2" /> <id nullFlavor="NA" /> <code codeSystem=&quot ;local" code="K" displayName="POTASSIUM" /> <statusCode code="completed" /> <effectiveTime value="086804760406" /> <value unit="mmol/L" xsi:type="PQ" value="5.3" /> <referenceRange& gt; <observationRange> <text>3.5-5.3</text&gt ; </observationRange> </referenceRange> & lt;/observation> </component> <component> < observation moodCode="EVN" classCode="OBS"> < templateId root="2.16.840.1.093212.10.20.22.4.2" /> < id nullFlavor="NA" /> <code codeSystem="local&quot ; code="eGFR" displayName="EST GFR (MDRD)" /> & lt;statusCode code="completed" /> <effectiveTime value=" 905883699666" /> <value unit="mL/min" xsi:type=& quot;PQ" value="17" /> <interpretationCode codeSystem="local" code="*" /> < referenceRange> <observationRange> <text> > 59</text> </observationRange> </ referenceRange> </observation> </component> < component> <observation moodCode="EVN" classCode="OBS" > <templateId root="2.16.840.1.088995.10.20.22.4.2" /& gt; <id nullFlavor="NA" /> <code codeSystem=& quot;local" code="GAP" displayName="ANION GAP" /> <statusCode code="completed" /> < effectiveTime value="487632461922" /> <value unit=&quot ;mmol/L" xsi:type="PQ" value="9" /> < referenceRange> <observationRange> <text> 5-15</text> </observationRange> </ referenceRange> </observation> </component> < component> <observation moodCode="EVN" classCode=" OBS"> <templateId root="2.16.840.1.360630.10.20.22.4.2& quot; /> <id nullFlavor="NA" /> <code codeSystem="local" code="eCrCl" displayName="EST CrCl ( CG)" /> <statusCode code="completed" /> <effectiveTime value="618657317157" /> <value unit="mL/min" xsi:type="PQ" value="27" /> & lt;interpretationCode codeSystem="local" code="*" /> <referenceRange> <observationRange> & lt;text>> 59</text> </observationRange> & lt;/referenceRange> </observation></component> < component> <observation moodCode="EVN" classCode=" OBS"> <templateId root="2.16.840.1.799354.10..22.4.2& quot; /> <id nullFlavor="NA" /> <code codeSystem="local" code="GLU" displayName="GLUCOSE&quot ; /> <statusCode code="completed" /> < effectiveTime value="505885953857" /> <value unit=&quot ;mg/dL" xsi:type="PQ" value="107" /> < interpretationCode codeSystem="local" code="*" /> <referenceRange> <observationRange> < text>70-99</text> </observationRange> </ referenceRange> </observation> </component> < component> <observation moodCode="EVN" classCode=" OBS"> <templateId root="2.16.840.1.897392.10.20.22.4.2& quot; /> <id nullFlavor="NA" /> <code codeSystem="local" code="CA" displayName="CALCIUM&quot ; /> <statusCode code="completed" /> < effectiveTime value="931040088017" /> <value unit=&quot ;mg/dL" xsi:type="PQ" value="8.5" /> < referenceRange> <observationRange><text>8.5-10.1</ text> </observationRange> </referenceRange> </observation> </component> <component> <observationmoodCode="EVN" classCode="OBS"> <templateId root="2.16.840.1.482640.10.20.22.4.2" /> <id nullFlavor="NA" /> <code codeSystem=" local" code="BUN" displayName="BLOOD UREA NITROGEN" /& gt; <statusCode code="completed" /> < effectiveTime value="380534275382" /> <value unit=&quot ;mg/dL" xsi:type="PQ" value="85" /> < interpretationCode codeSystem="local" code="*" /> < referenceRange> <observationRange> <text> 7-20</text> </observationRange> </ referenceRange> </observation> </component> < component> <observation moodCode="EVN" classCode=" OBS"> <templateId root="2.16.840.1.099452.10.20.22.4.2& quot; /> <id nullFlavor="NA" /> <code codeSystem="local" code="CREAT" displayName="CREATININE " /> <statusCode code="completed" /> & lt;effectiveTime value="649603420954" /> <value unit=& quot;mg/dL" xsi:type="PQ" value="2.7" /> & lt;interpretationCode codeSystem="local" code="*" /> <referenceRange> <observationRange> & lt;text>0.6-1.0</text> </observationRange> & lt;/referenceRange> </observation> </component> <component> <observation moodCode="EVN" classCode=& quot;OBS"> <templateId root=" 2.16.840.1.018838.10.20.22.4.2" /> <id nullFlavor="NA& quot; /> <code codeSystem="local" code="NA" displayName="SODIUM" /> <statusCode code=" completed" /> <effectiveTime value="896942252944" /> <value unit="mmol/L" xsi:type="PQ" value=& quot;135" /> <referenceRange> < observationRange> <text>135-148</text> < /observationRange> </referenceRange> </observation& gt; </component> <component> <observation moodCode="EVN" classCode="OBS"> <templateId root="2.16.840.1.766794.10.20.22.4.2" /> <id nullFlavor ="NA" /> <code codeSystem="local" code=" CL" displayName="CHLORIDE" /> <statusCode code=" completed" /> <effectiveTime value="996265676494" /> <value unit="mmol/L" xsi:type="PQ" value=& quot;103" /> <referenceRange> < observationRange> <text>98-110</text> &lt ;/observationRange> </referenceRange> </observation& gt; </component> <component> <observation moodCode="EVN" classCode="OBS"> <templateId root="2.16.840.1.416550.10.20.22.4.2" /> <id nullFlavor ="NA" /> <code codeSystem="local" code=" CO2" displayName="CARBON DIOXIDE" /> <statusCode code="completed" /> <effectiveTime value=" 302752225720" /> <value unit="mmol/L" xsi:type=" PQ" value="23" /><referenceRange> < observationRange> <text>21-32</text> < /observationRange> </referenceRange> </observation& gt; </component> </organizer> </entry> <entry> <organizer moodCode="EVN" classCode="BATTERY"> <templateId root="2.16.840.1.974331.10.20.22.4.1" /> < id nullFlavor="NA" /> <code codeSystem="local" code="CBC" displayName="CBC" /> <statusCode code= "completed" /> <component> <observation moodCode="EVN" classCode="OBS"> <templateId root="2.16.840.1.648864.10..22.4.2" /> <id nullFlavor=" NA" /> <code codeSystem="local" code="MCH& quot; displayName="MEAN CELL HGB" /> <statusCode code=& quot;completed" /> <effectiveTime value="521803400011& quot; /> <value unit="pg" xsi:type="PQ" value ="28.2" /> <referenceRange> < observationRange> <text>27.0-33.0</text> </observationRange> </referenceRange> </ observation> </component> <component> < observation moodCode="EVN" classCode="OBS"> < templateId root="2.16.840.1.297848.10..22.4.2" /> < id nullFlavor="NA" /> <code codeSystem="local&quot ; code="[facility]C" displayName="MEAN CELL HGB CONCENTRATION" /&gt ; <statusCode code="completed"/> < effectiveTime value="308151868842" /> <value unit=&quot ;g/dL" xsi:type="PQ" value="30.9" /> < interpretationCode codeSystem="local" code="*" /> <referenceRange> <observationRange> < text>32.0-37.0</text> </observationRange> </ referenceRange> </observation> </component> < component> <observation moodCode="EVN" classCode=" OBS"> <templateId root="2.16.840.1.020216.10.20.22.4.2& quot; /> <id nullFlavor="NA" /> <code codeSystem="local" code="MCV" displayName="MEAN CELL VOLUME" /> <statusCode code="completed" /> <effectiveTime value="387111340419" /> <value unit="fl" xsi:type="PQ" value="91.4" /> <referenceRange> <observationRange> < text>80.0-100.0</text> </observationRange> & lt;/referenceRange> </observation> </component> <component> <observation moodCode="EVN" classCode=& quot;OBS"> <templateId root=" 2.16.840.1.003989.10.20.22.4.2" /> <id nullFlavor="NA& quot; /> <code codeSystem="local" code="RBC" displayName="RED BLOOD CELL"/> <statusCode code=" completed" /> <effectiveTime value="391361529558" /> <value unit="m/cumm" xsi:type="PQ" value=& quot;2.80" /> <interpretationCode codeSystem="local& quot; code="*"/> <referenceRange> < observationRange> <text>4.00-6.00</text> </observationRange> </referenceRange> </ observation> </component> <component> < observation moodCode="EVN" classCode="OBS"> < templateId root="2.16.840.1.639085.10.20.22.4.2" /> < id nullFlavor="NA" /> <code codeSystem="local&quot ; code="RDW" displayName="RED CELL DISTRIBUTION WIDTH" /> <statusCode code="completed" /> <effectiveTime value ="028766508894" /> <value unit="%" xsi:type="PQ" value="16.6" /> < interpretationCode codeSystem="local" code="*" /> < referenceRange> <observationRange> <text> 11.0-15.6</text> </observationRange> </ referenceRange> </observation> </component> < component> <observation moodCode="EVN"classCode="OBS "> <templateId root="2.16.840.1.721159.10.20.22.4.2& quot; /> <id nullFlavor="NA" /> <code codeSystem="local" code="WBC" displayName="WHITE BLOOD CELL" /> <statusCode code="completed" /> <effectiveTime value="362526760270" /> <value unit="k/cumm" xsi:type="PQ" value="9.3" /> <referenceRange> <observationRange> & lt;text>5.0-10.0</text> </observationRange> </ referenceRange> </observation> </component> < component> <observation moodCode="EVN" classCode=" OBS"> <templateId root="2.16.840.1.903615.10.20.22.4.2& quot; /> <id nullFlavor="NA" /> <code codeSystem="local" code="HGBT" displayName="HEMOGLOBIN& quot; /> <statusCode code="completed" /> & lt;effectiveTime value="167218680098" /> <value unit=& quot;gm/dL" xsi:type="PQ" value="7.9" /> & lt;interpretationCode codeSystem="local" code="*" /> <referenceRange> <observationRange> & lt;text>12.0-16.0</text> </observationRange> & lt;/referenceRange> </observation> </component> <component> <observation moodCode="EVN" classCode=& quot;OBS"> <templateId root=" 2.16.840.1.348889.10.20.22.4.2" /> <id nullFlavor="NA& quot; /> <code codeSystem="local" code="HCTT&quot ; displayName="HEMATOCRIT" /> <statusCode code=" completed" /> <effectiveTime value="041060095023" /> <value unit="%" xsi:type="PQ" value="25.6" /> <interpretationCode codeSystem=" local" code="*" /> <referenceRange> <observationRange> <text>37.0-47.0</text> </ observationRange> </referenceRange> </observation&gt ; </component> <component> <observation moodCode ="EVN" classCode="OBS"> <templateId root=& quot;2.16.840.1.595884.10.20.22.4.2" /> <id nullFlavor=&quot ;NA" /> <code codeSystem="local" code="PLTT& quot; displayName="PLATELET COUNT" /> <statusCode code=" completed" /> <effectiveTime value="927317261900" /> <value unit="k/cumm" xsi:type="PQ" value=& quot;249" /> <referenceRange> < observationRange> <text>150-450</text> & lt;/observationRange> </referenceRange> </ observation> </component> </organizer> </entry> & lt;entry> <organizer moodCode="EVN" classCode="BATTERY& quot;> <templateId root="2.16.840.1.218705.10.20.22.4.1" /& gt; <id nullFlavor="NA" /> <codecodeSystem=" local" code="GHGLUMON" displayName="GLUCOSE (POC)" /&gt ; <statusCode code="completed" /> <component> <observation moodCode="EVN" classCode="OBS"> <templateId root="2.16.840.1.936341.10.20.22.4.2" /> <id nullFlavor="NA" /> <code codeSystem=" local" code="GHGLUMON" displayName="GLUCOSE (POC)" /&gt ;<statusCode code="completed" /> <effectiveTime value="978275984296" /> <value unit="mg/dL" xsi:type="PQ" value="184" /> < interpretationCode codeSystem="local" code="*" /> <referenceRange> <observationRange> < text>70-99</text> </observationRange> </ referenceRange> </observation> </component> </ organizer> </entry> <entry> <organizer moodCode="EVN " classCode="BATTERY"> <templateId root=" 2.16.840.1.711421.10.20.22.4.1" /> <id nullFlavor="NA&quot ; /> <code codeSystem="local" code="GHGLUMON" displayName="GLUCOSE (POC)" /> <statusCode code=" completed" /> <component> <observation moodCode=& quot;EVN"classCode="OBS"> <templateId root=" [id number]" /> <id nullFlavor="NA& quot; /> <code codeSystem="local" code="GHGLUMON& quot; displayName="GLUCOSE (POC)" /> <statusCode code=& quot;completed" /> <effectiveTime value="[id number]& quot; /> <value unit="mg/dL" xsi:type="PQ" value="184" /> <interpretationCode codeSystem=" local" code="*" /> <referenceRange> & lt;observationRange> <text>70-99</text> & lt;/observationRange> </referenceRange> </ observation> </component> </organizer> </entry> & lt;entry> <organizer moodCode="EVN" classCode="BATTERY& quot;> <templateId root="2.16.840.1.901283.10.20.22.4.1" /& gt; <id nullFlavor="NA" /> <code codeSystem=" local" code="GHGLUMON" displayName="GLUCOSE (POC)" /&gt ; <statusCode code="completed" /> <component> <observation moodCode="EVN" classCode="OBS"> <templateId root="2.16.840.1.748834.10.20.22.4.2" /> <id nullFlavor="NA" /> <code codeSystem=" local" code="GHGLUMON" displayName="GLUCOSE (POC)" /&gt ; <statusCode code="completed"/> < effectiveTime value="430680755336" /> <value unit=&quot ;mg/dL" xsi:type="PQ" value="154" /> < interpretationCode codeSystem="local" code="*" /> <referenceRange> <observationRange> < text>70-99</text> </observationRange> </ referenceRange> </observation> </component> </ organizer> </entry> <entry> <organizer moodCode="EVN " classCode="BATTERY"> <templateId root=" 2.16.840.1.636655.10.20.22.4.1" /> <id nullFlavor="NA&quot ; /> <code codeSystem="local" code="GHGLUMON" displayName="GLUCOSE (POC)" /> <statusCode code=" completed" /> <component> <observation moodCode=& quot;EVN" classCode="OBS"> <templateId root=" 2.16.840.1.522075.10.20.22.4.2" /> <id nullFlavor="NA& quot; /> <code codeSystem="local" code="GHGLUMON& quot; displayName="GLUCOSE (POC)" /> <statusCode code=& quot;completed" /> <effectiveTime value="434218178171& quot; /> <value unit="mg/dL" xsi:type="PQ" value="154" /> <interpretationCode codeSystem=" local" code="*" /> <referenceRange> <observationRange> <text>70-99</text> </ observationRange> </referenceRange> </observation&gt ; </component> </organizer> </entry> <entry> <organizer moodCode="EVN" classCode="BATTERY"> <templateId root="2.16.840.1.485794.10.20.22.4.1" /> < id nullFlavor="NA" /> <code codeSystem="local" code="VBG" displayName="VENOUS BLOOD GAS" /> < statusCode code="completed" /> <component> < observation moodCode="EVN" classCode="OBS"> < templateId root="2.16.840.1.291225.10.20.22.4.2" /> < id nullFlavor="NA" /> <code codeSystem="local&quot ; code="SIGRID" displayName="VBG BASE EXCESS" /> & lt;statusCode code="completed" /> <effectiveTime value= "677216985943" /> <value unit="mEq/L" xsi: type="PQ" value="-1.9" /> <referenceRange&gt ; <observationRange> <text>-3.0-3.0</text > </observationRange> </referenceRange> </observation> </component> <component> &lt ;observation moodCode="EVN" classCode="OBS"> &lt ;templateId root="2.16.840.1.159655.10.20.22.4.2" /> < id nullFlavor="NA" /> <code codeSystem="local&quot ; code="HCO3V" displayName="VBG BICARBONATE" />< statusCode code="completed" /> <effectiveTime value=& quot;315477330406" /> <value unit="meq/L" xsi:type ="PQ" value="23.1" /> <referenceRange> <observationRange> <text>21-30</text> </observationRange> </referenceRange> < /observation> </component> <component> < observation moodCode="EVN" classCode="OBS"> < templateId root="2.16.840.1.140525.10..22.4.2" /> < id nullFlavor="NA" /> <code codeSystem="local&quot ; code="PCO2V" displayName="VBG PCO2" /> < statusCode code="completed" /> <effectiveTime value=& quot;848352585651" /> <value unit="mmHg" xsi:type= "PQ" value="40" /> <interpretationCode codeSystem="local" code="*" /> < referenceRange> <observationRange> <text>41- 51</text> </observationRange> </ referenceRange> </observation> </component> < component> <observation moodCode="EVN" classCode=" OBS"> <templateId root="2.16.840.1.842951.10.20.22.4.2&quot ; /> <id nullFlavor="NA" /> <code codeSystem="local" code="PHV" displayName="VBG PH&quot ; /> <statusCode code="completed" /> < effectiveTime value="092764085536" /> <value unit=&quot ;" xsi:type="PQ" value="7.38" /> < referenceRange> <observationRange> <text> 7.33-7.43</text> </observationRange> </ referenceRange> </observation> </component> < component><observation moodCode="EVN" classCode="OBS"& gt; <templateId root="2.16.840.1.454269.10.20.22.4.2" /&gt ; <id nullFlavor="NA" /> <code codeSystem=" local" code="PO2V" displayName="VBG PO2" /> <statusCode code="completed" /> <effectiveTime value="807133954015" /> <value unit="mmHg" xsi:type="PQ" value="74" /> < interpretationCode codeSystem="local" code="*" /> & lt;referenceRange> <observationRange> <text& gt;35-40</text> </observationRange> </ referenceRange> </observation> </component> < component> <observation moodCode="EVN" classCode=" OBS"> <templateId root="2.16.840.1.560476.10.20.22.4.2& quot;/> <id nullFlavor="NA" /> <code codeSystem="local"code="SATV" displayName="VBG O2 SATURATION" /> <statusCode code="completed" /> <effectiveTime value="431390845228" /> < value unit="%" xsi:type="PQ" value="94" /& gt; <interpretationCode codeSystem="local" code="*& quot; /> <referenceRange> <observationRange> <text>65-75</text> </observationRange&gt ; </referenceRange> </observation> </ component> </organizer> </entry> <entry> < organizer moodCode="EVN" classCode="BATTERY"> < templateId root="2.16.840.1.458619.10.20.22.4.1" /> <id nullFlavor="NA" /> <code codeSystem="local" code= "CBCD" displayName="CBC W/DIFF" /> <statusCode code="completed" /> <component> <observation moodCode="EVN" classCode="OBS"> <templateId root="2.16.840.1.554668.10..22.4.2" /> <id nullFlavor ="NA" /> <code codeSystem="local" code=" EO#" displayName="EOSINOPHIL #" /> <statusCode code="completed" /> <effectiveTime value="512700826656& quot; /> <value unit="k/cumm" xsi:type="PQ" value="0.1" /> <referenceRange> < observationRange> <text>0.1-0.5</text> & lt;/observationRange> </referenceRange> </ observation> </component> <component> < observation moodCode="EVN" classCode="OBS"> < templateId root="2.16.840.1.762924.10.20.22.4.2" /> < id nullFlavor="NA" /> <code codeSystem="local&quot ; code="EO%" displayName="EOSINOPHIL %" /&gt ; <statusCode code="completed" /> <effectiveTime value="303687087955" /> <value unit="%& quot; xsi:type="PQ" value="1" /> < interpretationCode codeSystem="local" code="*" /> <referenceRange> <observationRange> < text>2-4</text> </observationRange> </ referenceRange> </observation> </component> < component> <observation moodCode="EVN" classCode=" OBS"> <templateId root="2.16.840.1.091374.10.20.22.4.2& quot; /> <id nullFlavor="NA" /><code codeSystem=& quot;local" code="GR#" displayName="GRANULOCYTE #" /&gt ; <statusCode code="completed" /> < effectiveTime value="103653868782" /> <value unit=&quot ;k/cumm" xsi:type="PQ" value="6.2" /> < referenceRange> <observationRange> <text> 2.0-9.0</text> </observationRange> </ referenceRange> </observation> </component> < component> <observation moodCode="EVN" classCode=" OBS"> <templateId root="2.16.840.1.927935.10.20.22.4.2& quot; /> <id nullFlavor="NA" /> <code codeSystem="local" code="GR%" displayName=" GRANULOCYTE %" /> <statusCode code="completed& quot; /> <effectiveTime value="562662587834" /> <value unit="%" xsi:type="PQ" value=" 72" /> <referenceRange> <observationRange& gt; <text>50-75</text> </observationRange > </referenceRange> </observation> </ component> <component> <observation moodCode="EVN& quot; classCode="OBS"> <templateId root=" 2.16.840.1.455636.10.20.22.4.2" /> <id nullFlavor="NA& quot; /> <code codeSystem="local" code="LY#" displayName="LYMPHOCYTE #" /> <statusCode code=" completed" /> <effectiveTime value="975927270029" /> <value unit="k/cumm" xsi:type="PQ" value=& quot;1.3" /> <referenceRange> <observationRange > <text>1.0-4.0</text> </ observationRange> </referenceRange> </observation&gt ; </component> <component> <observation moodCode ="EVN" classCode="OBS"> <templateId root=& quot;2.16.840.1.735747.10.20.22.4.2" /> <id nullFlavor=&quot ;NA" /> <code codeSystem="local" code="LY&amp ;#37;" displayName="LYMPHOCYTE %" /> < statusCode code="completed" /> <effectiveTime value=& quot;185990856674" /> <value unit="%" xsi: type="PQ" value="15" /> <interpretationCode codeSystem="local" code="*" /> < referenceRange> <observationRange> <text> 20-30</text> </observationRange> </referenceRange&gt ; </observation> </component> <component> <observation moodCode="EVN" classCode="OBS"> <templateId root="2.16.840.1.047997.10.20.22.4.2" />< id nullFlavor="NA" /> <code codeSystem="local&quot ; code="MCH" displayName="MEAN CELL HGB" /> < statusCode code="completed"/> <effectiveTime value=& quot;140596317958" /> <value unit="pg" xsi:type=& quot;PQ" value="27.7" /> <referenceRange> &lt ;observationRange> <text>27.0-33.0</text> </observationRange> </referenceRange> </ observation> </component> <component> < observation moodCode="EVN" classCode="OBS"> < templateId root="2.16.840.1.654498.10.20.22.4.2" /> < id nullFlavor="NA" /> <code codeSystem="local&quot ; code="MCHC" displayName="MEAN CELL HGB CONCENTRATION" /&gt ; <statusCode code="completed" /> < effectiveTime value="363648905178" /> <value unit=&quot ;g/dL" xsi:type="PQ" value="30.6" /> < interpretationCode codeSystem="local" code="*" /> <referenceRange> <observationRange> < text>32.0-37.0</text> </observationRange> </ referenceRange> </observation> </component> < component> <observation moodCode="EVN" classCode=" OBS"> <templateId root="2.16.840.1.781731.10.20.22.4.2& quot; /> <id nullFlavor="NA" /> <code codeSystem="local" code="MCV" displayName="MEAN CELLVOLUME" /> <statusCode code="completed" /> <effectiveTime value="257986422133" /> < value unit="fl" xsi:type="PQ" value="90.6" /> <referenceRange> <observationRange> &lt ;text>80.0-100.0</text> </observationRange> & lt;/referenceRange> </observation> </component> <component> <observation moodCode="EVN" classCode=& quot;OBS"> <templateId root=" 2.16.840.1.128949.10..22.4.2" /> <id nullFlavor="NA& quot; /><code codeSystem="local" code="MO#" displayName="MONOCYTE #" /> <statusCode code=" completed" /> <effectiveTime value="734596849637" /> <value unit="k/cumm" xsi:type="PQ" value=& quot;1.0" /> <referenceRange> < observationRange> <text>0.1-1.0</text> & lt;/observationRange> </referenceRange> </observation> </component> <component> <observation moodCode= "EVN" classCode="OBS"> <templateId root=&quot ;2.16.840.1.044813.10.20.22.4.2" /> <id nullFlavor="NA& quot; /> <code codeSystem="local" code="MO&#37 ;" displayName="MONOCYTE %" /> <statusCode code= "completed" /> <effectiveTime value="889661679122& quot; /> <value unit="%" xsi:type="PQ&quot ; value="12" /> <interpretationCode codeSystem=" local" code="*" /> <referenceRange> < observationRange> <text>4-6</text> </ observationRange> </referenceRange> </observation&gt ; </component> <component> <observation moodCode ="EVN" classCode="OBS"> <templateId root=& quot;2.16.840.1.063392.10.20.22.4.2" /> <id nullFlavor=&quot ;NA" /> <code codeSystem="local" code="RBC& quot; displayName="RED BLOOD CELL" /> <statusCode code= "completed" /> <effectiveTime value="543974120850& quot; /> <value unit="m/cumm" xsi:type="PQ" value="3.10" /> <interpretationCode codeSystem=" local" code="*" /> <referenceRange> < observationRange> <text>4.00-6.00</text> </observationRange> </referenceRange> </ observation> </component> <component> < observation moodCode="EVN" classCode="OBS"> < templateId root="2.16.840.1.833085.10.20.22.4.2" /> < id nullFlavor="NA" /> <code codeSystem="local&quot ; code="RDW" displayName="RED CELL DISTRIBUTION WIDTH" /&gt ; <statusCode code="completed" /> < effectiveTime value="008717036719" /> <value unit=&quot ;%" xsi:type="PQ" value="16.6" /> & lt;interpretationCode codeSystem="local" code="*" /> <referenceRange> <observationRange> & lt;text>11.0-15.6</text> </observationRange> </referenceRange> </observation> </component> <component> <observation moodCode="EVN" classCode=& quot;OBS"> <templateId root=" 2.16.840.1.850950.10.20.22.4.2" /> <id nullFlavor="NA& quot; /> <code codeSystem="local" code="WBC" displayName="WHITE BLOOD CELL" /> <statusCode code=& quot;completed" /> <effectiveTime value="461230497831& quot; /> <value unit="k/cumm" xsi:type="PQ" value="8.6" /> <referenceRange> < observationRange> <text>5.0-10.0</text> & lt;/observationRange> </referenceRange> </ observation> </component> <component> < observation moodCode="EVN" classCode="OBS"> < templateId root="2.16.840.1.996645.10.20.22.4.2" /> < id nullFlavor="NA" /> <code codeSystem="local" code="HGBT" displayName="HEMOGLOBIN" /> < statusCode code="completed" /> <effectiveTime value=& quot;799182075514" /> <value unit="gm/dL" xsi:type ="PQ" value="8.6" /> <interpretationCode codeSystem="local" code="*" /> < referenceRange> <observationRange> <text> 12.0-16.0</text> </observationRange> </ referenceRange> </observation> </component> < component> <observation moodCode="EVN" classCode=" OBS"> <templateId root="2.16.840.1.571018.10.20.22.4.2& quot; /> <id nullFlavor="NA" /> <code codeSystem="local" code="HCTT" displayName="HEMATOCRIT& quot; /> <statusCode code="completed" /> & lt;effectiveTime value="823771899297" /> <value unit="& amp;#37;" xsi:type="PQ" value="28.1" /> < interpretationCode codeSystem="local" code="*" /> <referenceRange> <observationRange> < text>37.0-47.0</text> </observationRange> </ referenceRange> </observation> </component> < component> <observation moodCode="EVN" classCode=" OBS"> <templateId root="2.16.840.1.850052.10.20.22.4.2& quot; /> <id nullFlavor="NA" /> <code codeSystem="local" code="PLTT" displayName="PLATELET COUNT" /> <statusCode code="completed" /> <effectiveTime value="875956407442" /> <value unit="k/cumm" xsi:type="PQ" value="304" /> <referenceRange> <observationRange> < text>150-450</text> </observationRange> </ referenceRange> </observation> </component> </ organizer> </entry> <entry> <organizer moodCode="EVN " classCode="BATTERY"> <templateId root=" 2.16.840.1.422464.10.20.22.4.1" /> <id nullFlavor="NA" / > <code codeSystem="local" code="RETIC" displayName="RETICULOCYTE COUNT" /> <statusCode code=" completed" /> <component> <observation moodCode=& quot;EVN" classCode="OBS"> <templateId root=" 2.16.840.1.952281.10.20.22.4.2" /> <id nullFlavor="NA& quot; /> <code codeSystem="local" code="IRF" displayName="IMMATURE FRACTION" /> <statusCode code=& quot;completed" /> <effectiveTime value="071589084397& quot; /> <value unit="%" xsi:type="PQ&quot ; value="24.9" /> <interpretationCode codeSystem=" local" code="*" /> <referenceRange> <observationRange> <text>9.3-17.4</text> </observationRange> </referenceRange> </ observation> </component> <component> < observation moodCode="EVN" classCode="OBS"> < templateId root="2.16.840.1.374029.10.20.22.4.2" /> < id nullFlavor="NA" /> <code codeSystem="local&quot ; code="RETABS" displayName="ABSOLUTE RETIC COUNT" /> <statusCode code="completed" /> < effectiveTime value="342085160215" /> <value unit=&quot ;k/cumm" xsi:type="PQ" value="102.3" /> &lt ;interpretationCode codeSystem="local" code="*" /> <referenceRange> <observationRange> < text>39.1-57.0</text> </observationRange> &lt ;/referenceRange> </observation> </component> & lt;component> <observation moodCode="EVN" classCode=&quot ;OBS"> <templateId root="2.16.840.1.394591.10.20.22.4.2 " /> <id nullFlavor="NA" /> <code codeSystem="local" code="RETIC%" displayName=" PERCENT RETIC" /> <statusCode code="completed" /& gt; <effectiveTime value="385107280266" /> &lt ;value unit="%" xsi:type="PQ" value="3.3" /> <interpretationCode codeSystem="local" code="*& quot; /> <referenceRange> <observationRange> <text>0.86-1.36</text> </ observationRange> </referenceRange> </observation&gt ; </component> <component> <observation moodCode ="EVN" classCode="OBS"> <templateId root=& quot;2.16.840.1.775364.10.20.22.4.2" /> <id nullFlavor=&quot ;NA" /> <code codeSystem="local" code="RETHE& quot; displayName="RETIC HGB EQUIVALENT" /> <statusCode code="completed" /> <effectiveTime value=" 311552325995" /> <value unit="pg/cell" xsi:type=& quot;PQ" value="29.3" /> <referenceRange> <observationRange> <text>27.1-35.2</text> </observationRange> </referenceRange> </ observation> </component> </organizer> </entry> & lt;entry> <organizer moodCode="EVN" classCode="BATTERY& quot;> <templateId root="2.16.840.1.704990.10.20.22.4.1" /& gt; <id nullFlavor="NA" /> <code codeSystem=" local" code="HBA1C" displayName="HEMOGLOBIN A1C" /> <statusCode code="completed" /> <component> <observation moodCode="EVN" classCode="OBS"> <templateId root="2.16.840.1.332482.10.20.22.4.2" /> <id nullFlavor="NA" /> <code codeSystem=" local" code="HBA1C" displayName="HEMOGLOBIN A1C" /> <statusCode code="completed" /> <effectiveTime value="925337884946" /> <value unit="%& quot; xsi:type="PQ" value="6.9" /> < interpretationCode codeSystem="local" code="*" /> &lt ;referenceRange> <observationRange> <text&gt ;< 5.7</text> </observationRange> </ referenceRange> </observation> </component> </ organizer> </entry> <entry> <organizer moodCode="EVN " classCode="BATTERY"> <templateId root=" 2.16.840.1.488697.10.20.22.4.1" /> <id nullFlavor="NA&quot ; /> <code codeSystem="local" code="FETIBC" displayName="IRON W/ BINDING CAPACITY" /> <statusCode code=& quot;completed" /> <component> <observation moodCode="EVN" classCode="OBS"> <templateId root="2..840.1.784539.10.20.22.4.2" /> <id nullFlavor ="NA" /> <code codeSystem="local" code=" FESAT" displayName="IRON SATURATION" /> <statusCode code=& quot;completed" /> <effectiveTime value="198632160973& quot; /> <value unit="%SAT" xsi:type="PQ& quot; value="5" /> <interpretationCode codeSystem=&quot ;local" code="*" /> <referenceRange> < observationRange> <text>11-46</text> < /observationRange> </referenceRange> </observation& gt; </component> <component> <observation moodCode="EVN" classCode="OBS"> <templateId root="2.16.840.1.836973.10.20.22.4.2" /> <id nullFlavor ="NA" /> <code codeSystem="local" code=" TIBC" displayName="IRON BINDING CAPACITY, TOTAL" /> & lt;statusCode code="completed" /> <effectiveTime value= "591264278707" /> <value unit="mcg/dL" xsi:type= "PQ" value="345" /> <referenceRange> &lt ;observationRange> <text>250-450</text> & lt;/observationRange> </referenceRange> </ observation> </component> <component> < observation moodCode="EVN" classCode="OBS"> < templateId root="2.16.840.1.497782.10.20.22.4.2" /> < id nullFlavor="NA" /> <code codeSystem="local&quot ; code="IRON" displayName="IRON" /> < statusCode code="completed" /> <effectiveTime value=& quot;755000130074" /> <value unit="mcg/dL" xsi: type="PQ" value="18" /> <interpretationCode codeSystem="local" code="*" /> < referenceRange> <observationRange> <text> 35-150</text> </observationRange> </ referenceRange> </observation> </component> </ organizer> </entry> <entry> <organizer moodCode="EVN " classCode="BATTERY"> <templateId root=" 2.16.840.1.603106.10.20.22.4.1" /> <id nullFlavor="NA&quot ; /> <code codeSystem="local" code="METAB" displayName="METABOLIC PANEL, BASIC" /> <statusCode code=& quot;completed" /> <component> <observation moodCode= "EVN" classCode="OBS"> <templateId root=" 2.16.840.1.301798.10.20.22.4.2" /> <id nullFlavor="NA& quot; /> <code codeSystem="local" code="K" displayName="POTASSIUM" /> <statusCode code=" completed" /> <effectiveTime value="337447111553" /> <value unit="mmol/L" xsi:type="PQ" value=& quot;4.9" /> <referenceRange> < observationRange> <text>3.5-5.3</text> & lt;/observationRange> </referenceRange> </observation> </component> <component> <observation moodCode=&quot ;EVN" classCode="OBS"> <templateIdroot=" 2.16.840.1.440290.10.20.22.4.2" /> <id nullFlavor="NA& quot; /> <code codeSystem="local" code="eGFR&quot ; displayName="EST GFR (MDRD)" /> <statusCode code=& quot;completed" /> <effectiveTime value="927914756772& quot; /> <value unit="mL/min" xsi:type="PQ" value="28" /> <interpretationCode codeSystem=" local" code="*" /> <referenceRange> <observationRange> <text>> 59</text> </observationRange> </referenceRange> </ observation> </component> <component> < observation moodCode="EVN" classCode="OBS"> < templateId root="2.16.840.1.156514.10.20.22.4.2" /> < id nullFlavor="NA" /> <code codeSystem="local&quot ; code="GAP" displayName="ANION GAP" /> < statusCode code="completed" /> <effectiveTime value=& quot;611851824828" /> <value unit="mmol/L" xsi: type="PQ" value="10" /> <referenceRange> <observationRange> <text>5-15</text> </observationRange> </referenceRange> </ observation> </component> <component> < observation moodCode="EVN" classCode="OBS"> < templateId root="2.16.840.1.134992.10.20.22.4.2" /> < id nullFlavor="NA" /> <code codeSystem="local&quot ; code="eCrCl" displayName="EST CrCl (CG)" /> & lt;statusCode code="completed" /> <effectiveTime value= "707772994576" /> <value unit="mL/min" xsi: type="PQ" value="40" /> <interpretationCode codeSystem="local" code="*" /> < referenceRange> <observationRange> <text>> 59</text> </observationRange> </ referenceRange> </observation> </component> < component> <observation moodCode="EVN" classCode=" OBS"> <templateId root="2.16.840.1.910499.10..22.4.2& quot; /> <id nullFlavor="NA" /> <code codeSystem="local" code="GLU" displayName="GLUCOSE&quot ; /> <statusCode code="completed" /> < effectiveTime value="463410479515" /> <value unit=&quot ;mg/dL" xsi:type="PQ" value="109" /> < interpretationCode codeSystem="local" code="*" /> <referenceRange> <observationRange> <text> 70-99</text> </observationRange> </ referenceRange> </observation> </component> < component> <observation moodCode="EVN" classCode=" OBS"> <templateId root="2.16.840.1.385402.10..22.4.2& quot; /> <id nullFlavor="NA" /> < codecodeSystem="local" code="CA" displayName="CALCIUM& quot; /> <statusCode code="completed" /> & lt;effectiveTime value="070179822779"/> <value unit=& quot;mg/dL" xsi:type="PQ" value="8.4" /> < interpretationCode codeSystem="local" code="*" /> <referenceRange> <observationRange> < text>8.5-10.1</text> </observationRange> </ referenceRange> </observation></component> < component> <observation moodCode="EVN" classCode=" OBS"> <templateId root="2.16.840.1.644459.10.20.22.4.2& quot; /> <id nullFlavor="NA" /> <code codeSystem="local" code="BUN" displayName="BLOOD UREA NITROGEN" /> <statusCode code="completed" /> <effectiveTime value="743998246967" /> < value unit="mg/dL" xsi:type="PQ" value="79" /> <interpretationCode codeSystem="local" code="*&quot ; /> <referenceRange><observationRange> &lt ;text>7-20</text> </observationRange> </ referenceRange> </observation> </component> < component> <observation moodCode="EVN" classCode=" OBS"> <templateId root="2.16.840.1.899793.10.20.22.4.2& quot; /> <id nullFlavor="NA" /> <code codeSystem="local" code="CREAT" displayName="CREATININE " /> <statusCode code="completed" /> & lt;effectiveTime value="236510552704" /> <value unit=& quot;mg/dL" xsi:type="PQ" value="1.8" /> & lt;interpretationCode codeSystem="local" code="*" /> <referenceRange> <observationRange> <text>0.6 -1.0</text> </observationRange> </ referenceRange> </observation> </component> < component> <observationmoodCode="EVN" classCode="OBS "> <templateId root="2.16.840.1.238175.10..22.4.2& quot; /> <id nullFlavor="NA" /> <code codeSystem="local" code="NA" displayName="SODIUM" /> <statusCode code="completed" /> < effectiveTime value="796597773241" /> <value unit=&quot ;mmol/L" xsi:type="PQ" value="140" /> < referenceRange> <observationRange> <text> 135-148</text> </observationRange> </ referenceRange> </observation> </component> < component> <observation moodCode="EVN"classCode="OBS "> <templateId root="2.16.840.1.975916.10..22.4.2& quot; /> <id nullFlavor="NA" /> <code codeSystem="local" code="CL" displayName="CHLORIDE&quot ; /> <statusCode code="completed" /> < effectiveTime value="236787385497" /> <value unit=&quot ;mmol/L" xsi:type="PQ" value="105" /> < referenceRange> <observationRange> <text> 98-110</text> </observationRange> </ referenceRange> </observation> </component> < component> <observation moodCode="EVN" classCode=" OBS"> <templateId root="[id number]& quot; /> <id nullFlavor="NA" /> <code codeSystem="local" code="CO2" displayName="CARBON DIOXIDE" /> <statusCode code="completed" /> <effectiveTime value="[id number]" /> <value unit="mmol/L" xsi:type="PQ" value="25" /> <referenceRange> <observationRange> &lt ;text>21-32</text> </observationRange> </ referenceRange> </observation> </component> </ organizer> </entry> <entry> <organizer moodCode="EVN " classCode="BATTERY"> <templateId root=" [id number]" /> <idnullFlavor="NA" /> <code codeSystem="local" code="LDH" displayName="LACTATE DEHYDROGENASE (LDH/LD)" /> < statusCode code="completed" /> <component> < observation moodCode="EVN" classCode="OBS"> < templateId root="2.16.840.1.839158.10.20.22.4.2" /> < id nullFlavor="NA" /> <code codeSystem="local&quot ; code="LDH"displayName="LACTATE DEHYDROGENASE (LDH/LD)" /& gt; <statusCode code="completed" /> < effectiveTime value="118670619613" /> <value unit=&quot ;Units/L" xsi:type="PQ" value="330" /> < interpretationCode codeSystem="local" code="*" /> <referenceRange> <observationRange> <text>81 -234</text> </observationRange> </ referenceRange> </observation> </component> </ organizer> </entry> <entry> <organizer moodCode="EVN " classCode="BATTERY"> <templateId root=" 2.16.840.1.231194.10.20.22.4.1" /> <id nullFlavor="NA&quot ; /> <code codeSystem="local" code="KISHA" displayName="FERRITIN" /> <statusCode code="completed& quot; /> <component> <observation moodCode="EVN& quot; classCode="OBS"> <templateId root=" 2.16.840.1.761864.10.20.22.4.2" /> <id nullFlavor="NA& quot; /> <code codeSystem="local" code="KISHA" displayName="FERRITIN" /> <statusCode code=" completed" /> <effectiveTime value="902714158146" /> <value unit="ng/mL" xsi:type="PQ" value=& quot;42" /> <referenceRange> < observationRange> <text>8-252</text> < /observationRange> </referenceRange> </observation& gt; </component> </organizer> </entry> <entry&gt ; <organizer moodCode="EVN" classCode="BATTERY"> <templateId root="2.16.840.1.421587.10.20.22.4.1" /> & lt;id nullFlavor="NA" /> <code codeSystem="local&quot ; code="TSH" displayName="THYROIDSTIM HORMONE (TSH)" /> <statusCode code="completed" /> <component> <observation moodCode="EVN" classCode="OBS"> <templateId root="2.16.840.1.182553.10.20.22.4.2" /> <id nullFlavor="NA" /> <code codeSystem=" local" code="TSH" displayName="THYROID STIM HORMONE (TSH)& quot; /> <statusCode code="completed" /> & lt;effectiveTime value="911982350824" /> <value unit=& quot;uIU/mL" xsi:type="PQ" value="1.54" /> <referenceRange> <observationRange> <text >0.34-4.82</text> </observationRange> </ referenceRange> </observation> </component> </ organizer> </entry> <entry> <organizer moodCode="EVN " classCode="BATTERY"> <templateId root=" 2.16.840.1.725774.10.20.22.4.1" /> <id nullFlavor="NA&quot ; /> <code codeSystem="local" code="FOL" displayName="FOLIC ACID,SERUM" /> <statusCode code=" completed" /> <component> <observation moodCode=& quot;EVN" classCode="OBS"> <templateId root=" 2.16.840.1.832963.10.20.22.4.2" /> <id nullFlavor="NA& quot; /> <code codeSystem="local" code="FOL" displayName="FOLIC ACID,SERUM" /> <statusCode code=& quot;completed" /> <effectiveTime value="803780827672& quot; /> <value unit="ng/mL" xsi:type="PQ" value="> 20.0" /> <referenceRange> <observationRange> <text>> 3.4</text> </observationRange> </referenceRange> < /observation> </component> </organizer> </entry> <entry> <organizer moodCode="EVN" classCode="BATTERY& quot;> <templateId root="2.16.840.1.415258.10.20.22.4.1" /& gt; <id nullFlavor="NA" /> <code codeSystem=" local" code="VITB12"displayName="VITAMIN B12" /> <statusCode code="completed" /> <component> <observation moodCode="EVN" classCode="OBS"> < templateId root="2.16.840.1.714570.10.20.22.4.2" /> < id nullFlavor="NA" /> <code codeSystem="local&quot ; code="VITB12" displayName="VITAMIN B12" /> &lt ;statusCode code="completed" /> <effectiveTime value=& quot;810299290010" /> <value unit="pg/mL" xsi:type ="PQ" value="488" /> <referenceRange> <observationRange> <text>193-986</text> </observationRange> </referenceRange> </ observation> </component> </organizer></entry> &lt ;entry> <organizer moodCode="EVN" classCode="BATTERY& quot;> <templateId root="2.16.840.1.320188.10.20.22.4.1" /& gt; <id nullFlavor="NA" /> <code codeSystem=" local" code="HAPT" displayName="HAPTOGLOBIN" /> <statusCode code="completed" /> <component> <observation moodCode="EVN" classCode="OBS"> <templateId root="2.16.840.1.217855.10.20.22.4.2" /> & lt;id nullFlavor="NA" /> <code codeSystem="local& quot; code="HAPT" displayName="HAPTOGLOBIN" /> & lt;statusCode code="completed" /> <effectiveTime value= "908225987283" /> <value unit="mg/dL" xsi: type="PQ"value="407" /> <interpretationCode codeSystem="local" code="*" /> < referenceRange> <observationRange> <text> 30-200</text> </observationRange> </ referenceRange> </observation> </component> </ organizer> </entry> <entry> <organizer moodCode="EVN& quot; classCode="BATTERY"> <templateId root=" 2.16.840.1.255972.10.20.22.4.1" /> <id nullFlavor="NA&quot ; /> <code codeSystem="local" code="VBG" displayName="VENOUS BLOOD GAS" /> <statusCode code=" completed" /> <component> <observation moodCode=& quot;EVN" classCode="OBS"> <templateId root=" 2.16.840.1.219270.10.20.22.4.2" /> <id nullFlavor="NA& quot; /> <code codeSystem="local" code="SIGRID" displayName="VBG BASE EXCESS" /> <statusCode code=&quot ;completed" /> <effectiveTime value="783913511057&quot ; /> <value unit="mEq/L" xsi:type="PQ" value= "-1.9" /> <referenceRange> < observationRange> <text>-3.0-3.0</text> & lt;/observationRange> </referenceRange> </ observation> </component> <component> < observation moodCode="EVN" classCode="OBS"> < templateId root="2.16.840.1.233659.10.20.22.4.2" /> < id nullFlavor="NA" /> <code codeSystem="local&quot ; code="HCO3V" displayName="VBG BICARBONATE" /> <statusCode code="completed" /> <effectiveTime value ="848923899294" /> <value unit="meq/L" xsi:type= "PQ" value="23.1" /> <referenceRange> & lt;observationRange> <text>21-30</text> & lt;/observationRange> </referenceRange> </ observation> </component> <component> < observation moodCode="EVN" classCode="OBS"> < templateId root="2.16.840.1.294728.10.20.22.4.2" /> < id nullFlavor="NA" /> <code codeSystem="local&quot ; code="PCO2V" displayName="VBG PCO2" /> < statusCode code="completed" /> <effectiveTime value=& quot;854316803907" /> <value unit="mmHg" xsi:type= "PQ" value="40" /> <interpretationCode codeSystem="local" code="*" /> < referenceRange> <observationRange> <text> 41-51</text> </observationRange> </ referenceRange> </observation> </component> < component> <observation moodCode="EVN" classCode=" OBS"> <templateId root="2.16.840.1.577350.10.20.22.4.2& quot; /> <id nullFlavor="NA" /> <code codeSystem="local" code="PHV" displayName="VBG PH&quot ; /> <statusCode code="completed" /> < effectiveTime value="380557768650" /> <value unit=&quot ;" xsi:type="PQ" value="7.38" /> < referenceRange> <observationRange> <text>7.33-7.43&lt ;/text> </observationRange> </referenceRange&gt ; </observation> </component> <component> <observation moodCode="EVN" classCode="OBS"> <templateId root="2.16.840.1.315636.10.20.22.4.2" /> <id nullFlavor="NA" /> <codecodeSystem=" local" code="PO2V" displayName="VBG PO2" /> <statusCode code="completed" /> <effectiveTime value="901541108004" /> <value unit="mmHg" xsi:type="PQ" value="74" /> < interpretationCode codeSystem="local" code="*" /> <referenceRange> <observationRange> < text>35-40</text> </observationRange> </ referenceRange> </observation> </component> < component> <observation moodCode="EVN" classCode=" OBS"> <templateId root="2.16.840.1.904371.10.20.22.4.2& quot; /> <id nullFlavor="NA" /> <code codeSystem ="local" code="SATV" displayName="VBG O2 SATURATION& quot; /> <statusCode code="completed" /> & lt;effectiveTime value="958535666266" /> <value unit=& quot;%" xsi:type="PQ" value="94" /> <interpretationCode codeSystem="local" code="*" /> <referenceRange><observationRange> <text&gt ;65-75</text> </observationRange> </ referenceRange> </observation> </component> </ organizer> </entry> <entry> <organizer moodCode="EVN " classCode="BATTERY"> <templateId root=" 2.16.840.1.413810.10.20.22.4.1" /> <id nullFlavor="NA&quot ; /> <code codeSystem="local" code="CBCD" displayName="CBC W/DIFF" /> <statusCode code=" completed" /> <component> <observation moodCode=& quot;EVN" classCode="OBS"><templateId root=" 2.16.840.1.130492.10.20.22.4.2" /> <id nullFlavor="NA& quot; /> <code codeSystem="local" code="EO#" displayName="EOSINOPHIL #" /> <statusCode code=" completed" /> <effectiveTime value="092305455591" /> <value unit="k/cumm" xsi:type="PQ" value=& quot;0.1" /> <referenceRange> < observationRange> <text>0.1-0.5</text> & lt;/observationRange> </referenceRange> </ observation> </component> <component> < observation moodCode="EVN" classCode="OBS"> < templateId root="2.16.840.1.984238.10.20.22.4.2" /> < id nullFlavor="NA" /> <code codeSystem="local" code="EO%" displayName="EOSINOPHIL %" /> <statusCode code="completed" /> < effectiveTime value="798199895375" /> <value unit=&quot ;%" xsi:type="PQ" value="1" /> < interpretationCode codeSystem="local" code="*" /> <referenceRange> <observationRange> <text>2-4 </text> </observationRange> </referenceRange& gt; </observation> </component> <component> <observation moodCode="EVN" classCode="OBS"> <templateId root="2.16.840.1.719085.10.20.22.4.2" /> <id nullFlavor="NA" /> <code codeSystem=&quot ;local" code="GR#" displayName="GRANULOCYTE #" /> <statusCode code="completed" /> < effectiveTime value="961192107678" /> <value unit=&quot ;k/cumm" xsi:type="PQ" value="6.2" /> < referenceRange> <observationRange> <text> 2.0-9.0</text> </observationRange> </ referenceRange> </observation> </component> < component> <observation moodCode="EVN" classCode=" OBS"> <templateId root="2.16.840.1.079943.10.20.22.4.2& quot; /> <id nullFlavor="NA" /> <code codeSystem="local" code="GR%" displayName=" GRANULOCYTE %" /> <statusCode code="completed& quot; /> <effectiveTime value="084901789300" /> <value unit="%" xsi:type="PQ" value=" 72" /> <referenceRange> <observationRange& gt; <text>50-75</text> </observationRange > </referenceRange> </observation> </ component> <component> <observation moodCode="EVN& quot; classCode="OBS"> <templateId root=" 2.16.840.1.604620.10.20.22.4.2" /> <id nullFlavor="NA& quot; /> <code codeSystem="local" code="LY#" displayName="LYMPHOCYTE #" /> <statusCode code=" completed" /> <effectiveTime value="992858532672" /> <value unit="k/cumm" xsi:type="PQ" value=& quot;1.3" /> <referenceRange> < observationRange> <text>1.0-4.0</text> </ observationRange> </referenceRange> </observation&gt ; </component> <component> <observation moodCode ="EVN" classCode="OBS"> <templateId root=& quot;2.16.840.1.820329.10..22.4.2" /> <id nullFlavor="NA& quot; /> <code codeSystem="local" code="LY&#37 ;" displayName="LYMPHOCYTE %" /> < statusCode code="completed" /> <effectiveTime value=& quot;858808113950" /> <value unit="%" xsi: type="PQ" value="15" /> <interpretationCode codeSystem="local" code="*" /> < referenceRange> <observationRange> <text> 20-30</text> </observationRange> </ referenceRange> </observation> </component> < component> <observation moodCode="EVN" classCode=" OBS"> <templateId root="2.16.840.1.480079.10.20.22.4.2& quot; /> <id nullFlavor="NA" /> <code codeSystem="local" code="MCH" displayName="MEAN CELL HGB" /> <statusCode code="completed" /> < effectiveTime value="347741023250" /> <value unit=&quot ;pg" xsi:type="PQ" value="27.7" /> < referenceRange> <observationRange> <text> 27.0-33.0</text> </observationRange> </ referenceRange> </observation> </component> < component> <observation moodCode="EVN" classCode=" OBS"> <templateId root="2.16.840.1.389058.10.20.22.4.2& quot; /> <id nullFlavor="NA" /> <code codeSystem="local" code="MCHC" displayName="MEAN CELL HGB CONCENTRATION" /> <statusCode code="completed&quot ; /> <effectiveTime value="866634497946" /> <value unit="g/dL" xsi:type="PQ" value="30.6&quot ; /> <interpretationCode codeSystem="local" code=" *" /> <referenceRange> <observationRange&gt ; <text>32.0-37.0</text> </observationRange > </referenceRange> </observation> </ component> <component> <observation moodCode="EVN& quot; classCode="OBS"> <templateId root=" 2.16.840.1.188975.10..22.4.2" /> <id nullFlavor="NA& quot; /> <code codeSystem="local" code="MCV" displayName="MEAN CELL VOLUME"/> <statusCode code=&quot ;completed" /> <effectiveTime value="182560969436&quot ; /> <value unit="fl" xsi:type="PQ" value=& quot;90.6" /> <referenceRange> < observationRange> <text>80.0-100.0</text> </observationRange> </referenceRange> </ observation> </component> <component> < observation moodCode="EVN" classCode="OBS"> < templateId root="2.16.840.1.851734.10.20.22.4.2" /> < id nullFlavor="NA" /> <code codeSystem="local&quot ; code="MO#" displayName="MONOCYTE #" /> < statusCode code="completed" /> <effectiveTime value=& quot;898264633798"/> <value unit="k/cumm" xsi:type ="PQ" value="1.0" /> <referenceRange> <observationRange> <text>0.1-1.0</text> </observationRange> </referenceRange> < /observation> </component> <component> < observation moodCode="EVN" classCode="OBS"> < templateId root="2.16.840.1.636309.10.20.22.4.2" /> < id nullFlavor="NA" /> <code codeSystem="local&quot ; code="MO%" displayName="MONOCYTE %" /> <statusCode code="completed" /> < effectiveTime value="204032190325" /> <value unit=&quot ;%" xsi:type="PQ" value="12" /> < interpretationCode codeSystem="local" code="*" /> <referenceRange> <observationRange> < text>4-6</text> </observationRange> </ referenceRange> </observation> </component> < component> <observation moodCode="EVN" classCode=" OBS"> <templateId root="2.16.840.1.860458.10.20.22.4.2& quot; /> <id nullFlavor="NA" /> <code codeSystem="local" code="RBC" displayName="RED BLOOD CELL" /> <statusCode code="completed"/> <effectiveTime value="588567477342" /> <value unit="m/cumm" xsi:type="PQ" value="3.10" /> <interpretationCode codeSystem="local" code="*" /& gt; <referenceRange> <observationRange> <text>4.00-6.00</text> </observationRange> </referenceRange> </observation> </component& gt; <component> <observation moodCode="EVN" classCode="OBS"> <templateId root=" 2.16.840.1.433550.10.20.22.4.2" /> <id nullFlavor="NA& quot; /> <code codeSystem="local" code="RDW" displayName="RED CELL DISTRIBUTION WIDTH" /> < statusCode code="completed" /><effectiveTime value=" 898655004524" /> <value unit="%"xsi:type=& quot;PQ" value="16.6" /> <interpretationCode codeSystem="local" code="*" /> < referenceRange> <observationRange> <text> 11.0-15.6</text> </observationRange> </ referenceRange> </observation> </component> < component> <observation moodCode="EVN" classCode="OBS& quot;> <templateId root="2.16.840.1.409527.10.20.22.4.2&quot ; /> <id nullFlavor="NA" /> <code codeSystem="local" code="WBC" displayName="WHITE BLOOD CELL" /> <statusCode code="completed" /> <effectiveTime value="717720670412" /> <value unit="k/cumm" xsi:type="PQ" value="8.6" /> <referenceRange> <observationRange> <text& gt;5.0-10.0</text> </observationRange> </ referenceRange> </observation> </component> < component> <observation moodCode="EVN" classCode=" OBS"> <templateId root="2.16.840.1.264609.10.20.22.4.2& quot; /> <id nullFlavor="NA" /> <code codeSystem="local" code="HGBT" displayName="HEMOGLOBIN& quot; /> <statusCode code="completed" /> < effectiveTime value="830838845036" /> <value unit=&quot ;gm/dL" xsi:type="PQ" value="8.6" /> < interpretationCode codeSystem="local" code="*" /> < referenceRange> <observationRange> <text> 12.0-16.0</text> </observationRange> </ referenceRange> </observation> </component> < component> <observation moodCode="EVN" classCode=" OBS"> <templateId root="2.16.840.1.452722.10.20.22.4.2& quot; /> <id nullFlavor="NA" /> <code codeSystem="local" code="HCTT" displayName="HEMATOCRIT& quot; /> <statusCode code="completed" /> & lt;effectiveTime value="033697039797" /> <valueunit=& quot;%" xsi:type="PQ" value="28.1" /> <interpretationCode codeSystem="local" code="*" /&gt ; <referenceRange> <observationRange> & lt;text>37.0-47.0</text> </observationRange> </referenceRange> </observation> </component> <component> <observation moodCode="EVN" classCode=& quot;OBS"> <templateId root=" 2.16.840.1.566692.10.20.22.4.2" /> <id nullFlavor="NA& quot; /> <code codeSystem="local" code="PLTT&quot ; displayName="PLATELET COUNT" /> <statusCode code=& quot;completed" /> <effectiveTime value="810392805914" /& gt; <value unit="k/cumm"xsi:type="PQ" value=& quot;304" /> <referenceRange> < observationRange> <text>150-450</text> & lt;/observationRange> </referenceRange> </ observation> </component> </organizer> </entry> & lt;entry> <organizer moodCode="EVN" classCode="BATTERY& quot;> <templateId root="2.16.840.1.369588.10.20.22.4.1" /& gt; <id nullFlavor="NA" /> <code codeSystem=" local" code="RETIC" displayName="RETICULOCYTE COUNT" /& gt; <statusCode code="completed" /> <component> <observation moodCode="EVN" classCode="OBS"> & lt;templateId root="2.16.840.1.769209.10.20.22.4.2" /> &lt ;id nullFlavor="NA" /> <code codeSystem="local& quot; code="IRF" displayName="IMMATURE FRACTION" /> <statusCode code="completed" /> <effectiveTime value=& quot;975949176947" /> <value unit="%" xsi: type="PQ" value="24.9" /> < interpretationCode codeSystem="local" code="*" /> <referenceRange> <observationRange> < text>9.3-17.4</text> </observationRange> < /referenceRange> </observation> </component> &lt ;component> <observation moodCode="EVN" classCode="OBS& quot;> <templateId root="2.16.840.1.167595.10.20.22.4.2&quot ; /> <id nullFlavor="NA" /> <code codeSystem="local" code="RETABS" displayName="ABSOLUTE RETIC COUNT" /> <statusCode code="completed" /&gt ; <effectiveTime value="422703921965" /> < value unit="k/cumm" xsi:type="PQ" value="102.3" /& gt; <interpretationCode codeSystem="local" code="*& quot; /> <referenceRange> <observationRange>& lt;text>39.1-57.0</text> </observationRange> </referenceRange> </observation> </component> <component> <observation moodCode="EVN" classCode=& quot;OBS"> <templateId root=" 2.16.840.1.489792.10.20.22.4.2" /> <id nullFlavor="NA& quot; /> <code codeSystem="local" code="RETIC& #37;" displayName="PERCENT RETIC" /> <statusCode code="completed" /> <effectiveTime value=" 208687174061" /> <value unit="%" xsi:type= "PQ" value="3.3" /> <interpretationCode codeSystem="local" code="*" /> < referenceRange> <observationRange> <text> 0.86-1.36</text> </observationRange> </ referenceRange> </observation> </component> < component> <observation moodCode="EVN" classCode=" OBS"> <templateId root="2.16.840.1.740253.10.20.22.4.2& quot; /> <id nullFlavor="NA" /> <code codeSystem="local" code="RETHE" displayName="RETIC HGB EQUIVALENT" /> <statusCode code="completed" /> <effectiveTime value="671151153535" /> < value unit="pg/cell" xsi:type="PQ" value="29.3" /& gt; <referenceRange> <observationRange> <text>27.1-35.2</text> </observationRange> </referenceRange> </observation> </component& gt; </organizer> </entry> <entry> <organizer moodCode="EVN" classCode="BATTERY"> <templateId root="2.16.840.1.372390.10.20.22.4.1" /> <id nullFlavor=& quot;NA" /> <code codeSystem="local" code="HBA1C& quot; displayName="HEMOGLOBIN A1C" /> <statusCode code=& quot;completed" /> <component> <observation moodCode="EVN" classCode="OBS"> <templateId root="2.16.840.1.390403.10.20.22.4.2" /> <id nullFlavor ="NA" /> <code codeSystem="local" code=" HBA1C" displayName="HEMOGLOBIN A1C" /> < statusCode code="completed" /> <effectiveTime value=& quot;496689983401" /> <value unit="%" xsi: type="PQ" value="6.9" /> <interpretationCode codeSystem="local" code="*" /> < referenceRange> <observationRange> <text> < 5.7</text> </observationRange> </ referenceRange> </observation> </component> </ organizer> </entry> <entry> <organizer moodCode="EVN " classCode="BATTERY"> <templateId root=" 2.16.840.1.893241.10.20.22.4.1" /> <id nullFlavor="NA&quot ; /> <code codeSystem="local" code="FETIBC" displayName="IRON W/ BINDING CAPACITY" /> <statusCode code= "completed" /> <component> <observation moodCode="EVN" classCode="OBS"> <templateId root="2.16.840.1.739325.10.20.22.4.2" /> <id nullFlavor ="NA" /> <code codeSystem="local" code=" FESAT" displayName="IRON SATURATION" /> < statusCode code="completed" /> <effectiveTime value=& quot;744740534841" /> <value unit="%SAT" xsi :type="PQ" value="5" /> <interpretationCode codeSystem="local" code="*" /> < referenceRange> <observationRange> <text> 11-46</text> </observationRange> </referenceRange&gt ; </observation> </component> <component> <observation moodCode="EVN" classCode="OBS"> <templateId root="2.16.840.1.538673.10.20.22.4.2" />< id nullFlavor="NA" /> <code codeSystem="local&quot ; code="TIBC" displayName="IRON BINDING CAPACITY, TOTAL" /& gt; <statusCode code="completed" /> < effectiveTime value="685463937271" /> <value unit=&quot ;mcg/dL" xsi:type="PQ" value="345" /> < referenceRange> <observationRange> <text> 250-450</text> </observationRange> </referenceRange&gt ; </observation> </component> <component> <observation moodCode="EVN" classCode="OBS"> <templateId root="2.16.840.1.383820.10.20.22.4.2" /> <id nullFlavor="NA" /> <code codeSystem=" local" code="IRON" displayName="IRON" /> & lt;statusCode code="completed" /> <effectiveTime value=& quot;571408936948" /> <value unit="mcg/dL" xsi: type="PQ" value="18" /> <interpretationCode codeSystem="local" code="*" /> < referenceRange> <observationRange> <text> 35-150</text> </observationRange> </ referenceRange> </observation> </component> </ organizer> </entry> <entry> <organizer moodCode="EVN " classCode="BATTERY"> <templateId root=" 2.16.840.1.613478.10.20.22.4.1" /> <id nullFlavor="NA&quot ; /> <code codeSystem="local" code="METAB" displayName="METABOLIC PANEL, BASIC" /> <statusCode code=& quot;completed" /> <component> <observation moodCode="EVN" classCode="OBS"> <templateId root="2.16.840.1.153466.10.20.22.4.2" /> <id nullFlavor ="NA" /> <code codeSystem="local" code=" K" displayName="POTASSIUM" /> <statusCode code=& quot;completed" /> <effectiveTime value="848139832405& quot; /> <value unit="mmol/L" xsi:type="PQ" value="4.9" /> <referenceRange> < observationRange> <text>3.5-5.3</text> </ observationRange> </referenceRange> </observation&gt ; </component> <component> <observation moodCode ="EVN" classCode="OBS"> <templateId root=& quot;2.16.840.1.516688.10.20.22.4.2" /> <id nullFlavor=&quot ;NA" /> <code codeSystem="local" code="eGFR& quot; displayName="EST GFR (MDRD)" /> <statusCode code= "completed" /> <effectiveTime value="503830158457& quot; /> <value unit="mL/min" xsi:type="PQ" value="28" /> <interpretationCode codeSystem=" local" code="*" /> <referenceRange> & lt;observationRange> <text>>59</text> </observationRange> </referenceRange> </ observation> </component> <component> < observation moodCode="EVN" classCode="OBS"> < templateId root="2.16.840.1.039484.10.20.22.4.2" /> < id nullFlavor="NA" /> <code codeSystem="local&quot ; code="GAP" displayName="ANION GAP" /> < statusCode code="completed" /> <effectiveTime value=& quot;024896902375" /> <value unit="mmol/L" xsi: type="PQ" value="10" /> <referenceRange> <observationRange> <text>5-15</text> </observationRange> </referenceRange> </ observation> </component> <component> < observation moodCode="EVN" classCode="OBS"> < templateId root="2.16.840.1.147753.10..22.4.2" /> < id nullFlavor="NA" /> <code codeSystem="local&quot ; code="eCrCl" displayName="EST CrCl (CG)" /> & lt;statusCode code="completed"/> <effectiveTime value=& quot;380626431220" /> <value unit="mL/min" xsi: type="PQ" value="40" /> <interpretationCode codeSystem="local" code="*" /> < referenceRange> <observationRange> <text> > 59</text> </observationRange> </ referenceRange> </observation> </component> < component> <observation moodCode="EVN" classCode=" OBS"> <templateId root="[id number]& quot; /> <id nullFlavor="NA" /> <code codeSystem="local" code="GLU" displayName="GLUCOSE&quot ; /> <statusCode code="completed" /> < effectiveTime value="[id number]" /> <value unit=&quot ;mg/dL" xsi:type="PQ"value="109" /> < interpretationCode codeSystem="local" code="*" /> <referenceRange> <observationRange> < text>70-99</text> </observationRange> </ referenceRange></observation> </component> < component> <observation moodCode="EVN" classCode=" OBS"> <templateId root="[id number]& quot; /> <id nullFlavor="NA" /> <code codeSystem="local" code="CA" displayName="CALCIUM&quot ; /> <statusCode code="completed" /> < effectiveTime value="281919922909" /> <value unit="mg/dL& quot; xsi:type="PQ" value="8.4" /> < interpretationCode codeSystem="local" code="*" /> <referenceRange> <observationRange> < text>8.5-10.1</text> </observationRange> < /referenceRange> </observation> </component> &lt ;component> <observation moodCode="EVN" classCode=" OBS"> <templateId root="2.16.840.1.491553.10.20.22.4.2& quot; /> <id nullFlavor="NA" /> <code codeSystem="local" code="BUN" displayName="BLOOD UREA NITROGEN" /> <statusCode code="completed" /> <effectiveTime value="852034561437" /> < value unit="mg/dL" xsi:type="PQ" value="79" /> <interpretationCode codeSystem="local" code="*&quot ; /> <referenceRange> <observationRange> <text>7-20</text> </observationRange>< /referenceRange> </observation> </component> &lt ;component> <observation moodCode="EVN" classCode="OBS& quot;> <templateId root="216.840.1.110659.10.20.22.4.2&quot ; /> <id nullFlavor="NA" /> <code codeSystem="local" code="CREAT" displayName="CREATININE " /> <statusCode code="completed" /> & lt;effectiveTime value="363526282529" /> <value unit=& quot;mg/dL" xsi:type="PQ" value="1.8" /> & lt;interpretationCode codeSystem="local" code="*" /> <referenceRange> <observationRange> & lt;text>0.6-1.0</text> </observationRange> & lt;/referenceRange> </observation> </component> <component> <observation moodCode="EVN" classCode=& quot;OBS"> <templateId root=" 2.16.840.1.308027.10.20.22.4.2" /> <id nullFlavor="NA& quot; /> <code codeSystem="local" code="NA" displayName="SODIUM" /> <statusCode code=" completed" /> <effectiveTime value="622268580131" /> <value unit="mmol/L" xsi:type="PQ" value=& quot;140" /> <referenceRange> < observationRange> <text>135-148</text> </ observationRange> </referenceRange> </observation&gt ; </component> <component> <observation moodCode ="EVN" classCode="OBS"> <templateId root=& quot;2.16.840.1.145026.10.20.22.4.2" /> <id nullFlavor="NA& quot; /> <code codeSystem="local" code="CL" displayName="CHLORIDE" /> <statusCode code=" completed" /> <effectiveTime value="326562383559" /> <value unit="mmol/L" xsi:type="PQ" value=& quot;105" /> <referenceRange> <observationRange> <text>98-110</text> </observationRange& gt; </referenceRange> </observation> </ component> <component> <observation moodCode="EVN& quot; classCode="OBS"> <templateId root=" 2.16.840.1.906580.10.20.22.4.2" /> <id nullFlavor="NA& quot; /> <code codeSystem="local" code="CO2" displayName="CARBON DIOXIDE" /> <statusCode code=" completed" /> <effectiveTime value="788208967192" /> <value unit="mmol/L" xsi:type="PQ" value=& quot;25" /> <referenceRange> < observationRange> <text>21-32</text> < /observationRange> </referenceRange> </observation& gt; </component> </organizer> </entry> <entry&gt ; <organizer moodCode="EVN" classCode="BATTERY"> <templateId root="2.16.840.1.629793.10.20.22.4.1" /> & lt;id nullFlavor="NA" /> <code codeSystem="local&quot ; code="LDH" displayName="LACTATE DEHYDROGENASE (LDH/LD)" /& gt; <statusCode code="completed" /><component> <observation moodCode="EVN" classCode="OBS"> < templateId root="2.16.840.1.692096.10.20.22.4.2" /> < id nullFlavor="NA" /> <code codeSystem="local&quot ; code="LDH" displayName="LACTATE DEHYDROGENASE (LDH/LD)" /& gt; <statusCode code="completed" /> < effectiveTime value="160009315466" /> <value unit=&quot ;Units/L" xsi:type="PQ" value="330" /> < interpretationCode codeSystem="local" code="*" /> <referenceRange> <observationRange> < text>81-234</text> </observationRange> </ referenceRange> </observation> </component> </ organizer> </entry> <entry> <organizer moodCode="EVN " classCode="BATTERY"> <templateId root=" 2.16.840.1.254241.10.20.22.4.1" /> <id nullFlavor="NA&quot ; /> <code codeSystem="local" code="KISHA" displayName="FERRITIN" /> <statusCode code="completed& quot; /> <component> <observation moodCode="EVN& quot; classCode="OBS"> <templateId root=" 2.16.840.1.911068.10.20.22.4.2" /> <id nullFlavor="NA& quot; /> <code codeSystem="local" code="KISHA" displayName="FERRITIN" /> <statusCode code=" completed" /> <effectiveTime value="640449871815" /> <value unit="ng/mL" xsi:type="PQ" value=& quot;42" /> <referenceRange> < observationRange> <text>8-252</text> </ observationRange> </referenceRange> </observation&gt ; </component> </organizer> </entry> <entry> <organizer moodCode="EVN" classCode="BATTERY"> <templateId root="2.16.840.1.984976.10.20.22.4.1" /> < id nullFlavor="NA" /> <code codeSystem="local" code= "TSH" displayName="THYROID STIM HORMONE(TSH)" /> &lt ;statusCode code="completed" /> <component>< observation moodCode="EVN" classCode="OBS"> < templateId root="2.16.840.1.876575.10.20.22.4.2" /> < id nullFlavor="NA" /> <code codeSystem="local" code ="TSH" displayName="THYROID STIM HORMONE (TSH)" /> <statusCode code="completed" /> <effectiveTime value="074585757243" /> <value unit="uIU/mL" xsi:type="PQ" value="1.54" /> <referenceRange > <observationRange> <text>0.34-4.82</ text> </observationRange> </referenceRange> </observation> </component> </organizer> </ entry> <entry> <organizer moodCode="EVN" classCode=& quot;BATTERY"> <templateId root="2.16.840.1.903268.10.20.22.4.1 " /> <id nullFlavor="NA" /> <code codeSystem="local" code="FOL" displayName="FOLIC ACID, SERUM" /> <statusCode code="completed" /> < component> <observation moodCode="EVN" classCode="OBS& quot;> <templateIdroot="2.16.840.1.226476.10.20.22.4.2&quot ; /> <id nullFlavor="NA" /> <code codeSystem="local" code="FOL" displayName="FOLIC ACID, SERUM" /> <statusCode code="completed" /> <effectiveTime value="409671634965" /> <value unit="ng/mL" xsi:type="PQ"value="> 20.0" /& gt; <referenceRange> <observationRange> <text>> 3.4</text> </observationRange&gt ; </referenceRange> </observation> </component> </organizer> </entry> <entry> <organizer moodCode=& quot;EVN" classCode="BATTERY"> <templateId root=" 2.16.840.1.840511.10.20.22.4.1" /> <id nullFlavor="NA&quot ; /> <code codeSystem="local" code="VITB12" displayName="VITAMIN B12" /> <statusCode code=" completed" /> <component> <observation moodCode=& quot;EVN" classCode="OBS"> <templateId root=" 2.16.840.1.881785.10..22.4.2" /> <id nullFlavor="NA& quot;/> <code codeSystem="local" code="VITB12&quot ; displayName="VITAMIN B12" /> <statusCode code=" completed" /> <effectiveTime value="549979420620" /> <value unit="pg/mL" xsi:type="PQ" value=& quot;488" /> <referenceRange> < observationRange> <text>193-986</text> </ observationRange> </referenceRange> </observation&gt ; </component> </organizer> </entry> <entry> <organizer moodCode="EVN" classCode="BATTERY"> <templateId root="2.16.840.1.387848.10.20.22.4.1" /> < id nullFlavor="NA" /> <code codeSystem="local" code="HAPT" displayName="HAPTOGLOBIN" /> < statusCode code="completed" /> <component> < observation moodCode="EVN" classCode="OBS"> < templateId root="2.16.840.1.916859.10.20.22.4.2" /> < id nullFlavor="NA" /> <code codeSystem="local" code=& quot;HAPT" displayName="HAPTOGLOBIN" /> < statusCode code="completed" /> <effectiveTime value=& quot;997070530876" /> <value unit="mg/dL" xsi:type ="PQ" value="407" /> <interpretationCode codeSystem="local" code="*" /> <referenceRange > <observationRange> <text>30-200</ text> </observationRange> </referenceRange> </observation> </component> </organizer> </ entry> <entry> <organizer moodCode="EVN" classCode=& quot;BATTERY"> <templateId root=" 2.16.840.1.569270.10.20.22.4.1" /> <id nullFlavor="NA&quot ; /> <code codeSystem="local" code="GHGLUMON" displayName="GLUCOSE (POC)" /> <statusCode code=" completed" /> <component> <observation moodCode=& quot;EVN" classCode="OBS"> <templateId root=" 2.16.840.1.250607.10.20.22.4.2" /> <id nullFlavor="NA& quot; /> <code codeSystem="local" code="GHGLUMON& quot; displayName="GLUCOSE (POC)" /> <statusCode code=& quot;completed" /> <effectiveTime value="029608515320& quot; /> <value unit="mg/dL" xsi:type="PQ" value="123" /> <interpretationCode codeSystem="local& quot; code="*" /> <referenceRange> < observationRange> <text>70-99</text> </ observationRange> </referenceRange> </observation&gt ; </component> </organizer> </entry> <entry> <organizer moodCode="EVN" classCode="BATTERY"> <templateId root="2.16.840.1.621357.10.20.22.4.1" /> < id nullFlavor="NA" /> <code codeSystem="local" code="GHGLUMON" displayName="GLUCOSE (POC)" /> < statusCode code="completed" /> <component> < observation moodCode="EVN" classCode="OBS"> < templateId root="2.16.840.1.726616.10..22.4.2" /> <id nullFlavor="NA" /> <code codeSystem="local" code="GHGLUMON" displayName="GLUCOSE (POC)" /> & lt;statusCode code="completed" /> <effectiveTime value= "912202165496" /> <valueunit="mg/dL" xsi:type ="PQ" value="123" /> <interpretationCode codeSystem="local" code="*" /> < referenceRange> <observationRange> <text>70-99</ text> </observationRange> </referenceRange> </observation> </component> </organizer> </ entry> <entry> <organizer moodCode="EVN" classCode=& quot;BATTERY"> <templateId root=" 2.16.840.1.444112.10.20.22.4.1" /> <id nullFlavor="NA&quot ; /> <code codeSystem="local" code="GHGLUMON" displayName="GLUCOSE (POC)" /> <statusCode code=" completed" /> <component> <observation moodCode=& quot;EVN" classCode="OBS"> <templateId root=" 2.16.840.1.518400.10.20.22.4.2" /> <id nullFlavor="NA& quot; /> <code codeSystem="local" code="GHGLUMON& quot; displayName="GLUCOSE (POC)" /> <statusCode code=& quot;completed" /> <effectiveTime value="100760943902&quot ; /> <value unit="mg/dL" xsi:type="PQ" value= "218" /> <interpretationCode codeSystem="local& quot; code="*" /> <referenceRange> < observationRange> <text>70-99</text> < /observationRange> </referenceRange> </observation& gt; </component> </organizer> </entry> <entry&gt ; <organizer moodCode="EVN" classCode="BATTERY"> <templateId root="2.16.840.1.184008.10.20.22.4.1" /> < id nullFlavor="NA" /> <code codeSystem="local" code="GHGLUMON" displayName="GLUCOSE (POC)" /> < statusCode code="completed" /> <component> < observation moodCode="EVN" classCode="OBS"> < templateId root="2.16.840.1.686482.10.20.22.4.2" /> < id nullFlavor="NA" /> <code codeSystem="local&quot ; code="GHGLUMON" displayName="GLUCOSE (POC)" /> <statusCode code="completed" /> <effectiveTime value="968361336082" /> <value unit="mg/dL" xsi:type="PQ" value="218" /> < interpretationCode codeSystem="local" code="*" /> <referenceRange> <observationRange> < text>70-99</text> </observationRange> </ referenceRange> </observation> </component> </ organizer> </entry> <entry> <organizer moodCode="EVN " classCode="BATTERY"> <templateId root=" 2.16.840.1.700074.10.20.22.4.1" /> <id nullFlavor="NA&quot ; /> <code codeSystem="local" code="OCC" displayName="FECAL OCCULT BLOOD"/> <statusCode code=" completed" /> <component> <observation moodCode=& quot;EVN" classCode="OBS"> <templateId root=" 2.16.840.1.810169.10.20.22.4.2" /> <id nullFlavor="NA& quot; /> <code codeSystem="local" code="MB" displayName="Microbiology" /> <statusCode code="completed& quot; /> <effectiveTime value="180957904202" /> <value xsi:type="ST" value="<pre><b>FECAL OCCULT BLOOD</b> See BelowFECAL OCCULT BLOOD(F) Aarti Date/Time: 04/07/2017 12:05 Mara Date/Time: // :SOURCE: STOOLSPEC DESC: See BelowFECAL OCCULT BLOOD(F) Aarti Date/Time: 04/07/2017 12:05 Mara Date/Time: 04/07/2017 13:39SOURCE: STOOLSPEC DESC: OCCULT BLOOD (Abnormal)POSITIVE (Abnormal)[facility] [id number] [place] [address]</pre>" /> <referenceRange&gt ; <observationRange> <text /> &lt ;/observationRange> </referenceRange> </observation& gt; </component> </organizer> </entry> <entry&gt ; <organizer moodCode="EVN" classCode="BATTERY">&lt ;templateId root="2.16.840.1.220693.10.20.22.4.1" /> <id nullFlavor="NA" /> <code codeSystem="local" code= "OCC" displayName="FECAL OCCULT BLOOD" /> < statusCode code="completed" /> <component> < observation moodCode="EVN" classCode="OBS"> < templateIdroot="2.16.840.1.543661.10.20.22.4.2" /> <id nullFlavor="NA" /> <code codeSystem="local" code="MB" displayName="Microbiology" /> < statusCode code="completed" /> <effectiveTime value=& quot;164981941830" /> <value xsi:type="ST" value=& quot;<pre><b>FECAL OCCULT BLOOD</b> See BelowFECAL OCCULT BLOOD(F) Aarti Date/Time: 04/07/2017 12:05 Mara Date/Time: // :SOURCE: STOOLSPEC DESC: See BelowFECAL OCCULT BLOOD(F) Aarti Date/Time: 04/07/2017 12:05 Mara Date/Time: 04/07/2017 13:39SOURCE: STOOLSPEC DESC: OCCULT BLOOD (Abnormal) POSITIVE (Abnormal)[facility] [id number] [place] [address]</pre>" /> <referenceRange> < observationRange> <text /> </ observationRange> </referenceRange> </observation&gt ; </component> </organizer> </entry> <entry> <organizer moodCode="EVN" classCode="BATTERY"> <templateId root="2.16.840.1.811122.10.20.22.4.1" /> < id nullFlavor="NA" /> <code codeSystem="local" code="GHGLUMON" displayName="GLUCOSE (POC)" /> < statusCode code="completed" /> <component> < observation moodCode="EVN" classCode="OBS"> < templateId root="2.16.840.1.487800.10.20.22.4.2" /> < id nullFlavor="NA" /> <code codeSystem="local&quot ; code="GHGLUMON" displayName="GLUCOSE (POC)" /> <statusCode code="completed" /><effectiveTime value=" 848193922009" /> <value unit="mg/dL" xsi:type=& quot;PQ" value="221" /> <interpretationCode codeSystem="local" code="*" /> < referenceRange> <observationRange> <text> 70-99</text> </observationRange> </ referenceRange> </observation> </component> </ organizer> </entry> <entry> <organizer moodCode="EVN " classCode="BATTERY"> <templateId root=" 2.16.840.1.347635.10.20.22.4.1" /> <id nullFlavor="NA&quot ; /> <code codeSystem="local" code="GHGLUMON" displayName="GLUCOSE (POC)" /> <statusCode code=" completed" /> <component> <observation moodCode=" EVN" classCode="OBS"> <templateId root=" 2.16.840.1.219694.10.20.22.4.2" /> <id nullFlavor="NA& quot; /> <code codeSystem="local" code="GHGLUMON&quot ; displayName="GLUCOSE (POC)" /> <statusCode code=&quot ;completed" /> <effectiveTime value="124572351337&quot ; /> <value unit="mg/dL" xsi:type="PQ" value= "221" /> <interpretationCode codeSystem="local& quot; code="*" /> <referenceRange> < observationRange> <text>70-99</text> < /observationRange> </referenceRange> </observation& gt; </component> </organizer> </entry> <entry&gt ; <organizer moodCode="EVN" classCode="BATTERY"> <templateId root="2.16.840.1.590885.10.20.22.4.1" /> & lt;id nullFlavor="NA" /> <code codeSystem="local&quot ; code="GHGLUMON" displayName="GLUCOSE (POC)" /> < statusCode code="completed" /> <component> < observation moodCode="EVN" classCode="OBS"> < templateId root="2.16.840.1.746915.10.20.22.4.2" /> < id nullFlavor="NA" /> <code codeSystem="local&quot ; code="GHGLUMON" displayName="GLUCOSE (POC)" /> < statusCode code="completed" /> <effectiveTime value=& quot;295003079319" /> <value unit="mg/dL" xsi:type ="PQ" value="151"/> <interpretationCode codeSystem="local" code="*" /><referenceRange> <observationRange> <text>70-99</text> </observationRange> </referenceRange> </ observation> </component> </organizer> </entry> &lt ;entry> <organizer moodCode="EVN" classCode="BATTERY& quot;> <templateId root="2.16.840.1.565118.10.20.22.4.1" /& gt; <id nullFlavor="NA" /> <code codeSystem=" local" code="GHGLUMON" displayName="GLUCOSE (POC)" /&gt ; <statusCode code="completed" /> <component> <observation moodCode="EVN" classCode="OBS"> <templateId root="2.16.840.1.177777.10.20.22.4.2" /> <id nullFlavor="NA" /> <code codeSystem=" local" code="GHGLUMON" displayName="GLUCOSE (POC)" /&gt ; <statusCode code="completed" /> < effectiveTime value="450261071412" /> <value unit="mg/dL& quot; xsi:type="PQ" value="151" /> < interpretationCode codeSystem="local" code="*" /> <referenceRange> <observationRange> < text>70-99</text> </observationRange> </ referenceRange> </observation> </component> </ organizer> </entry> <entry> <organizer moodCode="EVN " classCode="BATTERY"> <templateId root=" 2.16.840.1.695289.10.20.22.4.1" /> <id nullFlavor="NA&quot ; /> <code codeSystem="local" code="CBCD" displayName="CBC W/DIFF" /> <statusCode code=" completed" /> <component> <observation moodCode=& quot;EVN" classCode="OBS"> <templateId root=" 2.16.840.1.553483.10.20.22.4.2" /> <id nullFlavor="NA& quot; /> <code codeSystem="local" code="CBCCOM& quot; displayName="COMMENT" /> <statusCode code=" completed" /> <effectiveTime value="761539621876" /> <value unit="" xsi:type="PQ" value="REVIEWED " /> <referenceRange> <observationRange&gt ; <text /> </observationRange> < /referenceRange> </observation> </component> &lt ;component> <observation moodCode="EVN" classCode=" OBS"> <templateId root="2.16.840.1.308815.10.20.22.4.2& quot; /> <id nullFlavor="NA" /> <code codeSystem="local" code="EO#" displayName="EOSINOPHIL # " /> <statusCode code="completed" /> & lt;effectiveTime value="195766908643" /> <value unit=& quot;k/cumm" xsi:type="PQ" value="0.1" /> & lt;referenceRange> <observationRange> <text& gt;0.1-0.5</text> </observationRange> </ referenceRange> </observation> </component> < component> <observation moodCode="EVN" classCode=" OBS"> <templateId root="2.16.840.1.030052.10.20.22.4.2& quot; /> <id nullFlavor="NA" /> <code codeSystem="local" code="EO%" displayName=" EOSINOPHIL %" /> <statusCode code="completed&quot ; /> <effectiveTime value="223484706073" /> <value unit="%" xsi:type="PQ" value="1& quot; /> <interpretationCode codeSystem="local" code=& quot;*" /> <referenceRange> <observationRange& gt; <text>2-4</text> </observationRange& gt; </referenceRange> </observation> </ component> <component> <observation moodCode="EVN& quot; classCode="OBS"> <templateId root=" 2.16.840.1.581632.10.20.22.4.2" /> <id nullFlavor="NA& quot; /> <code codeSystem="local" code="GR#" displayName="GRANULOCYTE #" /> <statusCode code=" completed" /> <effectiveTime value="967277403173" /> <value unit="k/cumm" xsi:type="PQ" value=& quot;6.1" /> <referenceRange> < observationRange> <text>2.0-9.0</text> </ observationRange> </referenceRange> </observation&gt ; </component> <component> <observation moodCode ="EVN" classCode="OBS"> <templateId root=& quot;2.16.840.1.409821.10.20.22.4.2" /> <id nullFlavor=&quot ;NA" /> <code codeSystem="local" code="GR&amp ;#37;" displayName="GRANULOCYTE %" /> < statusCode code="completed" /> <effectiveTime value=& quot;052498069861" /> <value unit="%" xsi: type="PQ" value="70" /> <referenceRange> <observationRange> <text>50-75</text>& lt;/observationRange> </referenceRange> </ observation> </component> <component> < observation moodCode="EVN" classCode="OBS"> < templateId root="2.16.840.1.015380.10.20.22.4.2" /> < id nullFlavor="NA" /> <code codeSystem="local&quot ; code="LY#" displayName="LYMPHOCYTE #" /> < statusCode code="completed" /> <effectiveTime value=& quot;895770311174" /> <value unit="k/cumm" xsi: type="PQ" value="1.4" /> <referenceRange> <observationRange> <text>1.0-4.0</text> </observationRange> </referenceRange> </ observation> </component> <component> < observation moodCode="EVN" classCode="OBS"> < templateId root="2.16.840.1.554681.10..22.4.2" /> < id nullFlavor="NA" /> <code codeSystem="local&quot ; code="LY%" displayName="LYMPHOCYTE %" /&gt ; <statusCode code="completed" /> < effectiveTime value="059053734695" /> <value unit=&quot ;%" xsi:type="PQ" value="16" /> &lt ;interpretationCode codeSystem="local" code="*" /> <referenceRange> <observationRange> < text>20-30</text> </observationRange></ referenceRange> </observation> </component> < component> <observation moodCode="EVN" classCode="OBS& quot;> <templateId root="2.16.840.1.351904.10.20.22.4.2&quot ; /> <id nullFlavor="NA" /> <code codeSystem="local" code="MCH" displayName="MEAN CELL HGB" /> <statusCode code="completed" /> <effectiveTime value="443039835864" /> <value unit="pg" xsi:type="PQ" value="27.7" /> <referenceRange> <observationRange> <text>27.0- 33.0</text> </observationRange> </ referenceRange> </observation> </component> < component> <observation moodCode="EVN" classCode=" OBS"> <templateId root="2.16.840.1.228950.10.20.22.4.2& quot; /> <id nullFlavor="NA" /> < codecodeSystem="local" code="MCHC" displayName="MEAN CELL HGB CONCENTRATION" /> <statusCode code="completed& quot; /> <effectiveTime value="941211309235" /> <value unit="g/dL" xsi:type="PQ" value="30.5& quot; /> <interpretationCode codeSystem="local" code=& quot;*"/> <referenceRange> < observationRange> <text>32.0-37.0</text> </observationRange> </referenceRange> </ observation> </component> <component> < observation moodCode="EVN" classCode="OBS"> < templateId root="2.16.840.1.005587.10..22.4.2" /> < id nullFlavor="NA" /> <code codeSystem="local&quot ; code="MCV" displayName="MEAN CELL VOLUME" /> & lt;statusCode code="completed" /> <effectiveTime value= "202212913620" /> <value unit="fl" xsi:type=& quot;PQ" value="91.0" /><referenceRange> < observationRange> <text>80.0-100.0</text> </observationRange> </referenceRange> </ observation> </component> <component> < observation moodCode="EVN" classCode="OBS"> < templateId root="2.16.840.1.166767.10.20.22.4.2" /> < id nullFlavor="NA" /> <code codeSystem="local&quot ; code="MO#" displayName="MONOCYTE #" /> < statusCode code="completed" /> <effectiveTime value=& quot;146987078411" /> <value unit="k/cumm" xsi: type="PQ" value="1.1" /> <interpretationCode codeSystem="local" code="*" /> < referenceRange> <observationRange> <text>0.1-1.0&lt ;/text> </observationRange> </referenceRange&gt ; </observation> </component> <component> <observation moodCode="EVN" classCode="OBS"> &lt ;templateId root="2.16.840.1.389859.10.20.22.4.2" /> < id nullFlavor="NA" /> <code codeSystem="local&quot ; code="MO%" displayName="MONOCYTE %" /> <statusCode code="completed" /> < effectiveTime value="390349331372" /> <value unit=&quot ;%" xsi:type="PQ" value="12" /> &lt ;interpretationCode codeSystem="local" code="*" /> <referenceRange> <observationRange> < text>4-6</text> </observationRange> </ referenceRange> </observation> </component> < component> <observation moodCode="EVN" classCode="OBS&quot ;> <templateId root="2..840.1.985157.10.20.22.4.2" /& gt; <id nullFlavor="NA" /> <code codeSystem=& quot;local" code="RBC" displayName="RED BLOOD CELL" /& gt; <statusCode code="completed" /> < effectiveTime value="005920729329" /> <value unit=&quot ;m/cumm" xsi:type="PQ" value="3.21" /> < interpretationCode codeSystem="local" code="*" /> <referenceRange> <observationRange> < text>4.00-6.00</text> </observationRange> &lt ;/referenceRange></observation> </component> < component> <observation moodCode="EVN" classCode=" OBS"> <templateId root="2.16.840.1.404412.10.20.22.4.2& quot; /> <id nullFlavor="NA" /> <code codeSystem="local" code="RDW" displayName="RED CELL DISTRIBUTION WIDTH" /> <statusCode code="completed" /&gt ; <effectiveTime value="941797699872" /> < value unit="%" xsi:type="PQ" value="16.7" /> <interpretationCode codeSystem="local" code="*& quot; /> <referenceRange> <observationRange> <text>11.0-15.6</text> </observationRange&gt ; </referenceRange> </observation> </ component> <component> <observation moodCode="EVN& quot; classCode="OBS"> <templateId root=" [id number]" /> <id nullFlavor="NA& quot; /> <code codeSystem="local" code="WBC" displayName="WHITE BLOOD CELL" /> <statusCode code=& quot;completed" /> <effectiveTime value="[id number]& quot; /><value unit="k/cumm" xsi:type="PQ" value=&quot ;8.7" /> <referenceRange> <observationRange > <text>5.0-10.0</text> </ observationRange> </referenceRange> </observation&gt ; </component> <component> <observation moodCode=& quot;EVN" classCode="OBS"> <templateId root=" [id number]" /> <id nullFlavor="NA&quot ; /> <code codeSystem="local" code="HGBT" displayName="HEMOGLOBIN" /> <statusCode code=" completed" /> <effectiveTime value="[id number]" /> <value unit="gm/dL" xsi:type="PQ" value=& quot;8.9" /> <interpretationCode codeSystem="local&quot ; code="*" /> <referenceRange> < observationRange> <text>12.0-16.0</text> </observationRange> </referenceRange> </ observation> </component> <component> < observation moodCode="EVN" classCode="OBS"> < templateId root="2.16.840.1.537753.10.20.22.4.2" /> < id nullFlavor="NA" /> <code codeSystem="local&quot ; code="HCTT" displayName="HEMATOCRIT" /> < statusCode code="completed" /> <effectiveTime value=& quot;464389758073" /> <value unit="%" xsi: type="PQ" value="29.2" /> < interpretationCode codeSystem="local" code="*" /> <referenceRange> <observationRange> <text> 37.0-47.0</text> </observationRange> </ referenceRange> </observation> </component> < component> <observation moodCode="EVN" classCode=" OBS"> <templateId root="2.16.840.1.622870.10.20.22.4.2& quot; /> <id nullFlavor="NA" /> <code codeSystem="local" code="PLTT" displayName="PLATELET COUNT" /> <statusCode code="completed" /> <effectiveTime value="629981029394" /> <value unit=& quot;k/cumm" xsi:type="PQ" value="307" /> & lt;referenceRange> <observationRange> <text& gt;150-450</text> </observationRange> </ referenceRange></observation> </component> </organizer > </entry> <entry><organizer moodCode="EVN" classCode="BATTERY"> <templateId root=" 2.16.840.1.675423.10.20.22.4.1" /> <id nullFlavor="NA&quot ; /> <code codeSystem="local" code="RENAL" displayName="RENAL FUNCTION PANEL" /> <statusCode code=& quot;completed" /> <component> <observation moodCode="EVN" classCode="OBS"> <templateId root="2.16.840.1.357069.10.20.22.4.2" /> <id nullFlavor ="NA" /> <codecodeSystem="local" code="K " displayName="POTASSIUM" /> <statusCode code=& quot;completed" /> <effectiveTime value="746908586024& quot; /> <value unit="mmol/L" xsi:type="PQ" value="4.4" /> <referenceRange> < observationRange> <text>3.5-5.3</text> & lt;/observationRange> </referenceRange> </ observation> </component> <component> < observation moodCode="EVN" classCode="OBS"> < templateId root="2.16.840.1.372059.10.20.22.4.2" /> < id nullFlavor="NA" /> <code codeSystem="local&quot ; code="eGFR" displayName="EST GFR (MDRD)" /> & lt;statusCode code="completed" /> <effectiveTime value= "143020778684" /> <value unit="mL/min" xsi:type=" PQ" value="40" /> <interpretationCode codeSystem=& quot;local" code="*" /> <referenceRange> <observationRange> <text>> 59</text&gt ; </observationRange> </referenceRange> & lt;/observation> </component> <component> < observation moodCode="EVN" classCode="OBS"> < templateId root="2.16.840.1.255403.10.20.22.4.2" /> < id nullFlavor="NA" /> <code codeSystem="local&quot ; code="GAP"displayName="ANION GAP" /> < statusCode code="completed" /> <effectiveTime value=" 915264158310" /> <value unit="mmol/L" xsi:type=& quot;PQ" value="7" /> <referenceRange> <observationRange> <text>5-15</text> </observationRange> </referenceRange> </ observation> </component> <component> < observation moodCode="EVN" classCode="OBS"> < templateId root="2.16.840.1.438568.10.20.22.4.2" /> < id nullFlavor="NA" /> <code codeSystem="local&quot ; code="eCrCl" displayName="EST CrCl (CG)" /> & lt;statusCode code="completed" /> <effectiveTime value= "617362946072" /> <value unit="mL/min" xsi: type="PQ" value="56" /> <interpretationCode codeSystem="local" code="*" /> < referenceRange> <observationRange> <text> > 59</text> </observationRange> </ referenceRange> </observation> </component> < component> <observation moodCode="EVN" classCode=" OBS"> <templateId root="216.840.1.133472.10.20.22.4.2& quot; /> <id nullFlavor="NA" /> <code codeSystem="local" code="GLU" displayName="GLUCOSE&quot ; /> <statusCode code="completed" /> < effectiveTime value="307649116956" /> <value unit=&quot ;mg/dL" xsi:type="PQ" value="97" /> < referenceRange> <observationRange> <text> 70-99</text> </observationRange> </ referenceRange> </observation> </component> < component> <observation moodCode="EVN" classCode=" OBS"> <templateId root="2.16.840.1.607055.10.20.22.4.2& quot;/> <id nullFlavor="NA" /> <code codeSystem="local"code="CA" displayName="CALCIUM" /> <statusCode code="completed" /> < effectiveTime value="989627347226" /> <value unit=&quot ;mg/dL" xsi:type="PQ" value="9.2" /> < referenceRange> <observationRange> <text> 8.5-10.1</text> </observationRange> </ referenceRange> </observation> </component> < component> <observation moodCode="EVN" classCode=" OBS"> <templateId root="2.16.840.1.936472.10.20.22.4.2& quot; /> <id nullFlavor="NA" /> <code codeSystem="local" code="BUN" displayName="BLOOD UREA NITROGEN" /> <statusCode code="completed" /> <effectiveTime value="897520703810" /> < value unit="mg/dL" xsi:type="PQ" value="71" /> <interpretationCode codeSystem="local" code="*&quot ; /> <referenceRange> <observationRange> <text>7-20</text> </observationRange> </referenceRange> </observation> </component& gt; <component> <observation moodCode="EVN" classCode ="OBS"> <templateId root=" 2.16.840.1.180478.10.20.22.4.2" /> <id nullFlavor="NA& quot; /> <code codeSystem="local" code="CREAT" displayName="CREATININE" /> <statusCode code=" completed" /> <effectiveTime value="832799807125" /> <value unit="mg/dL" xsi:type="PQ" value=& quot;1.3" /> <interpretationCode codeSystem="local&quot ; code="*" /> <referenceRange> < observationRange> <text>0.6-1.0</text> & lt;/observationRange> </referenceRange> </ observation> </component> <component> < observation moodCode="EVN" classCode="OBS"> < templateId root="2.16.840.1.973063.10.20.22.4.2" /> < id nullFlavor="NA" /> <code codeSystem="local&quot ; code="NA" displayName="SODIUM" /> < statusCode code="completed" /> <effectiveTime value=& quot;458060843085" /> <value unit="mmol/L" xsi: type="PQ" value="142" /> <referenceRange> <observationRange> <text>135-148</text& gt; </observationRange> </referenceRange> </ observation> </component> <component> < observation moodCode="EVN" classCode="OBS"> < templateId root="2.16.840.1.983049.10.20.22.4.2" /> <id nullFlavor="NA" /> <code codeSystem="local" code="CL" displayName="CHLORIDE" /> < statusCode code="completed" /> <effectiveTime value=& quot;663446190030" /> <value unit="mmol/L" xsi: type="PQ" value="108" /> <referenceRange> <observationRange> <text>98-110</text> </observationRange> </referenceRange> </ observation> </component> <component> < observation moodCode="EVN" classCode="OBS"> < templateId root="2.16.840.1.315510.10.20.22.4.2" /> < id nullFlavor="NA" /> <code codeSystem="local&quot ; code="CO2" displayName="CARBON DIOXIDE" /> &lt ;statusCode code="completed" /> <effectiveTime value=& quot;755438834704" /> <value unit="mmol/L" xsi: type="PQ" value="27" /> <referenceRange> <observationRange> <text>21-32</text> </observationRange> </referenceRange> & lt;/observation> </component> <component> < observation moodCode="EVN" classCode="OBS"> < templateId root="2.16.840.1.619956.10.20.22.4.2" /> < id nullFlavor="NA" /> <code codeSystem="local" code="ALB" displayName="ALBUMIN" /> < statusCode code="completed" /> <effectiveTime value=& quot;314993205065" /> <value unit="gm/dL" xsi:type ="PQ" value="2.6" /> <interpretationCode codeSystem="local" code="*" /> < referenceRange> <observationRange> <text> 3.4-5.0</text> </observationRange> </ referenceRange> </observation> </component> < component> <observation moodCode="EVN" classCode=" OBS"> <templateId root="2.16.840.1.373078.10.20.22.4.2& quot; /> <id nullFlavor="NA" /> <code codeSystem="local" code="PHOS" displayName="PHOSPHORUS& quot; /> <statusCode code="completed" /> & lt;effectiveTime value="508412594259" /> <value unit=& quot;mg/dL" xsi:type="PQ" value="3.5" /> & lt;referenceRange> <observationRange> <text& gt;2.5-4.9</text> </observationRange> </ referenceRange> </observation> </component> </ organizer> </entry> <entry> <organizer moodCode="EVN " classCode="BATTERY"> <templateId root=" 2.16.840.1.188604.10.20.22.4.1" /> <id nullFlavor="NA&quot ; /> <code codeSystem="local" code="CBCD" displayName="CBC W/DIFF" /> <statusCode code=" completed" /> <component> <observation moodCode=& quot;EVN" classCode="OBS"> <templateId root=" 2.16.840.1.535735.10.20.22.4.2" /> <id nullFlavor="NA" /& gt; <code codeSystem="local" code="CBCCOM" displayName="COMMENT" /> <statusCode code=" completed"/> <effectiveTime value="931388921098" / > <value unit="" xsi:type="PQ" value=" REVIEWED" /> <referenceRange> <observationRange&gt ; <text /> </observationRange> </ referenceRange> </observation> </component> < component> <observation moodCode="EVN" classCode=" OBS"> <templateId root="2.16.840.1.145969.10..22.4.2& quot; /> <id nullFlavor="NA" /> <code codeSystem="local" code="EO#" displayName="EOSINOPHIL # " /> <statusCode code="completed" /> & lt;effectiveTime value="332882718429" /> <value unit=& quot;k/cumm" xsi:type="PQ" value="0.1" /> & lt;referenceRange> <observationRange> <text>0.1- 0.5</text> </observationRange> </ referenceRange> </observation> </component> < component> <observation moodCode="EVN" classCode=" OBS"> <templateId root="2.16.840.1.644019.10.20.22.4.2& quot; /> <id nullFlavor="NA" /> <code codeSystem="local" code="EO%" displayName=" EOSINOPHIL %" /> <statusCode code="completed& quot; /> <effectiveTime value="358190112021" /> <value unit="%" xsi:type="PQ"value="1& quot; /> <interpretationCode codeSystem="local" code=& quot;*" /> <referenceRange> < observationRange> <text>2-4</text> </ observationRange> </referenceRange> </observation&gt ; </component> <component> <observation moodCode ="EVN" classCode="OBS"> <templateId root=& quot;2.16.840.1.114086.10.20.22.4.2" /> <id nullFlavor=&quot ;NA" /> <code codeSystem="local" code="GR#& quot; displayName="GRANULOCYTE #" /> <statusCodecode=& quot;completed" /> <effectiveTime value="365569289629& quot; /> <value unit="k/cumm" xsi:type="PQ" value= "6.1" /> <referenceRange> < observationRange> <text>2.0-9.0</text> & lt;/observationRange> </referenceRange> </ observation> </component> <component> < observation moodCode="EVN" classCode="OBS"> < templateId root="2.16.840.1.919042.10..22.4.2" /> < id nullFlavor="NA" /> <code codeSystem="local&quot ; code="GR%" displayName="GRANULOCYTE %" /& gt; <statusCode code="completed" /> < effectiveTime value="488471078711" /> <value unit="& #37;" xsi:type="PQ" value="70" /><referenceRange& gt; <observationRange> <text>50-75</text& gt; </observationRange> </referenceRange> </observation> </component> <component> < observation moodCode="EVN" classCode="OBS"> < templateId root="2.16.840.1.826741.10.20.22.4.2" /> <id nullFlavor="NA" /> <code codeSystem="local" code="LY#" displayName="LYMPHOCYTE #" /> < statusCode code="completed" /> <effectiveTime value=& quot;435955638569" /> <value unit="k/cumm" xsi: type="PQ" value="1.4" /> <referenceRange> <observationRange> <text>1.0-4.0</text& gt; </observationRange> </referenceRange> </observation> </component> <component> &lt ;observation moodCode="EVN" classCode="OBS"> &lt ;templateId root="2.16.840.1.907542.10.20.22.4.2" /> < id nullFlavor="NA" /> <code codeSystem="local&quot ; code="LY%" displayName="LYMPHOCYTE %" /&gt ; <statusCode code="completed" /> < effectiveTime value="395107362804" /> <value unit=&quot ;%" xsi:type="PQ" value="16" /> &lt ;interpretationCode codeSystem="local" code="*" /> <referenceRange> <observationRange> < text>20-30</text> </observationRange> </ referenceRange> </observation> </component> < component> <observation moodCode="EVN" classCode=" OBS"> <templateId root="2.16.840.1.999714.10..22.4.2& quot; /> <id nullFlavor="NA" /> <code codeSystem="local" code="MCH" displayName="MEAN CELL HGB" /> <statusCode code="completed" /> <effectiveTime value="146239989715" /> <value unit="pg" xsi:type="PQ" value="27.7" /> <referenceRange> <observationRange> < text>27.0-33.0</text> </observationRange> &lt ;/referenceRange> </observation> </component> & lt;component><observation moodCode="EVN" classCode="OBS& quot;> <templateId root="2.16.840.1.847614.10.20.22.4.2&quot ; /> <id nullFlavor="NA" /> <code codeSystem=& quot;local" code="MCHC" displayName="MEAN CELL HGB CONCENTRATION" /> <statusCode code="completed" /& gt; <effectiveTime value="999404346506" /> &lt ;value unit="g/dL" xsi:type="PQ" value="30.5" /&gt ; <interpretationCode codeSystem="local" code="*&quot ; /> <referenceRange> <observationRange> <text>32.0-37.0</text> </observationRange&gt ; </referenceRange> </observation> </ component> <component> <observationmoodCode="EVN& quot; classCode="OBS"> <templateId root=" 2.16.840.1.566788.10.20.22.4.2" /> <id nullFlavor="NA& quot; /> <code codeSystem="local" code="MCV" displayName="MEAN CELL VOLUME" /> <statusCode code=" completed" /> <effectiveTime value="663466211664" /> <value unit="fl" xsi:type="PQ" value=&quot ;91.0" /> <referenceRange> < observationRange> <text>80.0-100.0</text> </observationRange> </referenceRange> </ observation> </component> <component> < observation moodCode="EVN" classCode="OBS"> < templateId root="2.16.840.1.062332.10..22.4.2" /> < id nullFlavor="NA" /> <code codeSystem="local&quot ; code="MO#" displayName="MONOCYTE #" /> < statusCode code="completed" /> <effectiveTime value=& quot;101486887394" /> <value unit="k/cumm" xsi:type=" PQ" value="1.1" /> <interpretationCode codeSystem= "local" code="*" /> <referenceRange> <observationRange> <text>0.1-1.0</text> </observationRange> </referenceRange> < /observation> </component> <component> < observation moodCode="EVN" classCode="OBS"> < templateId root="2.16.840.1.223511.10.20.22.4.2" /> < id nullFlavor="NA" /> <code codeSystem="local&quot ; code="MO%" displayName="MONOCYTE %" /> <statusCode code="completed" /> < effectiveTime value="639012538775" /> <value unit=&quot ;%" xsi:type="PQ" value="12" /> &lt ;interpretationCode codeSystem="local" code="*" /> <referenceRange> <observationRange> < text>4-6</text> </observationRange> </ referenceRange> </observation> </component> < component> <observation moodCode="EVN" classCode=" OBS"> <templateId root="2.16.840.1.131131.10.20.22.4.2& quot; /> <id nullFlavor="NA" /> <code codeSystem="local" code="RBC" displayName="RED BLOOD CELL" /> <statusCode code="completed" /> <effectiveTime value="946682880517" /> <value unit="m/cumm" xsi:type="PQ" value="3.21" /> <interpretationCode codeSystem="local" code="*" /& gt; <referenceRange> <observationRange> < text>4.00-6.00</text> </observationRange> &lt ;/referenceRange> </observation> </component> & lt;component> <observation moodCode="EVN" classCode=&quot ;OBS"> <templateId root="2.16.840.1.902906.10.20.22.4.2 " /> <id nullFlavor="NA" /> < codecodeSystem="local" code="RDW" displayName="RED CELL DISTRIBUTION WIDTH" /> <statusCode code="completed " /> <effectiveTime value="721617107316" /> <value unit="%" xsi:type="PQ" value=" 16.7" /> <interpretationCode codeSystem="local" code="*" /> <referenceRange> < observationRange> <text>11.0-15.6</text> </observationRange> </referenceRange> </observation> </component> <component> <observation moodCode= "EVN" classCode="OBS"> <templateId root=&quot ;2.16.840.1.384879.10.20.22.4.2" /> <id nullFlavor="NA& quot; /> <code codeSystem="local" code="WBC" displayName="WHITE BLOOD CELL" /> <statusCode code=& quot;completed" /> <effectiveTime value="596845099493& quot; /> <value unit="k/cumm" xsi:type="PQ" value="8.7" /> <referenceRange> < observationRange> <text>5.0-10.0</text> & lt;/observationRange> </referenceRange> </ observation> </component> <component> < observation moodCode="EVN" classCode="OBS"> < templateId root="2.16.840.1.818628.10.20.22.4.2" /> < id nullFlavor="NA" /> <code codeSystem="local&quot ; code="HGBT" displayName="HEMOGLOBIN" /> < statusCode code="completed" /> <effectiveTime value=& quot;589693645882" /> <value unit="gm/dL" xsi:type ="PQ" value="8.9" /> <interpretationCode codeSystem="local" code="*" /> < referenceRange> <observationRange> <text>12.0- 16.0</text> </observationRange> </ referenceRange> </observation> </component> < component> <observation moodCode="EVN" classCode=" OBS"> <templateId root="2.16.840.1.935648.10.20.22.4.2& quot; /> <id nullFlavor="NA" /> <code codeSystem="local" code="HCTT" displayName="HEMATOCRIT& quot; /> <statusCode code="completed" /> & lt;effectiveTime value="472629353422" /> <value unit=& quot;%" xsi:type="PQ" value="29.2" /> <interpretationCode codeSystem="local" code="*" /&gt ; <referenceRange> <observationRange> <text>37.0-47.0</text> </observationRange> </referenceRange> </observation> </component&gt ; <component> <observation moodCode="EVN" classCode=& quot;OBS"> <templateId root=" 2.16.840.1.921873.10.20.22.4.2" /> <id nullFlavor="NA& quot; /> <code codeSystem="local" code="PLTT" displayName="PLATELET COUNT" /> <statusCode code=" completed" /> <effectiveTime value="350320827894" /> <value unit="k/cumm" xsi:type="PQ" value=& quot;307" /> <referenceRange> < observationRange> <text>150-450</text> </ observationRange> </referenceRange> </observation&gt ; </component> </organizer> </entry> <entry> <organizer moodCode="EVN" classCode="BATTERY"> <templateId root="2.16.840.1.349150.10.20.22.4.1" /> < id nullFlavor="NA" /> <code codeSystem="local" code="RENAL" displayName="RENAL FUNCTIONPANEL" /> & lt;statusCode code="completed" /> <component>< observation moodCode="EVN" classCode="OBS"> < templateId root="2.16.840.1.734613.10.20.22.4.2" /> < id nullFlavor="NA" /> <code codeSystem="local" code ="K" displayName="POTASSIUM" /> <statusCode code="completed" /> <effectiveTime value=" 008078604842" /> <value unit="mmol/L" xsi:type=& quot;PQ" value="4.4" /> <referenceRange> <observationRange> <text>3.5-5.3</text> </observationRange> </referenceRange> </ observation> </component> <component> < observation moodCode="EVN" classCode="OBS"> < templateId root="2.16.840.1.994005.10.20.22.4.2" /> < id nullFlavor="NA" /> <code codeSystem="local&quot ; code="eGFR" displayName="EST GFR (MDRD)" /> & lt;statusCode code="completed" /> <effectiveTime value= "937049683337" /> <value unit="mL/min" xsi: type="PQ" value="40" /> <interpretationCode codeSystem="local" code="*" /> < referenceRange> <observationRange> <text> > 59</text> </observationRange> </ referenceRange> </observation> </component> < component> <observation moodCode="EVN" classCode=" OBS"> <templateId root="2.16.840.1.159193.10.20.22.4.2& quot; /> <id nullFlavor="NA" /> <code codeSystem="local" code="GAP" displayName="ANION GAP& quot; /> <statusCode code="completed" /> & lt;effectiveTime value="180167981727" /> <value unit=& quot;mmol/L" xsi:type="PQ" value="7" /> &lt ;referenceRange> <observationRange> <text>5-15 </text> </observationRange> </referenceRange& gt; </observation> </component><component> <observation moodCode="EVN" classCode="OBS"> < templateId root="2.16.840.1.421429.10.20.22.4.2" /> < id nullFlavor="NA" /> <code codeSystem="local&quot ; code="eCrCl" displayName="EST CrCl (CG)" /> & lt;statusCode code="completed" /> <effectiveTime value= "690556710856" /> <value unit="mL/min" xsi: type="PQ" value="56" /> <interpretationCode codeSystem="local" code="*" /> < referenceRange> <observationRange> <text>& amp;gt; 59</text> </observationRange> </ referenceRange> </observation> </component> < component> <observation moodCode="EVN" classCode=" OBS"> <templateId root="2.16.840.1.676147.10.20.22.4.2& quot; /> <id nullFlavor="NA" /> <code codeSystem ="local" code="GLU" displayName="GLUCOSE" /> <statusCode code="completed" /> <effectiveTime value="906628697663" /> <value unit="mg/dL" xsi:type="PQ" value="97" /> <referenceRange& gt; <observationRange> <text>70-99</text& gt; </observationRange> </referenceRange> </observation> </component> <component> &lt ;observation moodCode="EVN" classCode="OBS"> &lt ;templateId root="2.16.840.1.201942.10.20.22.4.2" /> < id nullFlavor="NA" /> <code codeSystem="local&quot ; code="CA" displayName="CALCIUM" /> < statusCode code="completed" /> <effectiveTime value=& quot;025375009755" /> <value unit="mg/dL" xsi:type ="PQ" value="9.2" /> <referenceRange> <observationRange> <text>8.5-10.1</text> </observationRange> </referenceRange> </ observation> </component> <component> < observation moodCode="EVN" classCode="OBS"> < templateId root="2.16.840.1.486354.10.20.22.4.2" /> <id nullFlavor="NA" /> <code codeSystem="local" code="BUN" displayName="BLOOD UREA NITROGEN" /> <statusCode code="completed" /> <effectiveTime value ="039314005712" /> <value unit="mg/dL" xsi: type="PQ" value="71" /> <interpretationCode codeSystem="local" code="*" /> < referenceRange> <observationRange> <text> 7-20</text> </observationRange> </ referenceRange> </observation> </component> < component> <observation moodCode="EVN" classCode=" OBS"> <templateId root="2.16.840.1.621016.10.20.22.4.2& quot; /> <id nullFlavor="NA" /> <code codeSystem="local" code="CREAT" displayName="CREATININE " /> <statusCode code="completed" /> & lt;effectiveTime value="825406859866" /> <value unit=& quot;mg/dL" xsi:type="PQ" value="1.3" /> & lt;interpretationCode codeSystem="local" code="*" /> <referenceRange> <observationRange><text>0.6- 1.0</text> </observationRange> </ referenceRange> </observation> </component> < component> <observation moodCode="EVN" classCode=" OBS"> <templateId root="2.16.840.1.398069.10.20.22.4.2& quot; /> <id nullFlavor="NA" /> <code codeSystem="local" code="NA" displayName="SODIUM" /> <statusCode code="completed" /> < effectiveTime value="707186670044" /> <value unit=&quot ;mmol/L" xsi:type="PQ" value="142" /> < referenceRange> <observationRange> <text> 135-148</text> </observationRange> </ referenceRange> </observation> </component> < component> <observation moodCode="EVN" classCode=" OBS"> <templateId root="2.16.840.1.153926.10.20.22.4.2& quot;/> <id nullFlavor="NA" /> <code codeSystem="local"code="CL" displayName="CHLORIDE&quot ; /> <statusCode code="completed" /> < effectiveTime value="168680844503" /> <value unit=&quot ;mmol/L" xsi:type="PQ" value="108" /> < referenceRange> <observationRange> <text> 98-110</text> </observationRange> </ referenceRange> </observation> </component> < component> <observation moodCode="EVN" classCode=" OBS"> <templateId root="2.16.840.1.998205.10.20.22.4.2& quot; /> <id nullFlavor="NA" /> <code codeSystem="local" code="CO2" displayName="CARBON DIOXIDE" /> <statusCode code="completed" /> <effectiveTime value="171359154805" /> <value unit="mmol/L" xsi:type="PQ" value="27" /> <referenceRange> <observationRange> &lt ;text>21-32</text> </observationRange> </ referenceRange> </observation> </component> < component> <observation moodCode="EVN" classCode=" OBS"> <templateId root="2.16.840.1.754265.10.20.22.4.2& quot; /> <id nullFlavor="NA" /> <code codeSystem="local" code="ALB" displayName="ALBUMIN&quot ; /> <statusCode code="completed" /> < effectiveTime value="492912687537" /> <value unit=&quot ;gm/dL" xsi:type="PQ" value="2.6" /> < interpretationCode codeSystem="local" code="*" /> <referenceRange> <observationRange> < text>3.4-5.0</text> </observationRange> </ referenceRange> </observation> </component> < component> <observation moodCode="EVN" classCode=" OBS"> <templateId root="2.16.840.1.591345.10.20.22.4.2& quot; /> <id nullFlavor="NA" /> <code codeSystem="local" code="PHOS" displayName="PHOSPHORUS& quot; /> <statusCode code="completed" /> & lt;effectiveTime value="929269332687" /> <value unit=& quot;mg/dL" xsi:type="PQ" value="3.5" /> < referenceRange> <observationRange> <text> 2.5-4.9</text> </observationRange> </ referenceRange> </observation> </component> </ organizer> </entry> <entry> <organizer moodCode="EVN " classCode="BATTERY"> <templateId root=" 2.16.840.1.514028.10.20.22.4.1" /> <id nullFlavor="NA&quot ; /> <code codeSystem="local" code="GHGLUMON" displayName="GLUCOSE (POC)" /> <statusCode code=" completed" /> <component> <observation moodCode=& quot;EVN" classCode="OBS"> <templateId root=" 2.16.840.1.927824.10.20.22.4.2" /> <id nullFlavor="NA& quot; /> <code codeSystem="local" code="GHGLUMON& quot; displayName="GLUCOSE (POC)" /> <statusCode code=& quot;completed" /> <effectiveTime value="[id number]& quot; /> <value unit="mg/dL" xsi:type="PQ" value= "110" /> <interpretationCode codeSystem="local& quot; code="*" /> <referenceRange> < observationRange> <text>70-99</text> < /observationRange> </referenceRange> </observation& gt; </component> </organizer> </entry> <entry&gt ; <organizer moodCode="EVN" classCode="BATTERY"> <templateId root="[id number]" /> & lt;id nullFlavor="NA" /> <code codeSystem="local&quot ; code="GHGLUMON" displayName="GLUCOSE (POC)" /> &lt ;statusCode code="completed" /> <component> < observation moodCode="EVN" classCode="OBS"> < templateId root="2.16.840.1.078714.10.20.22.4.2" /> <id nullFlavor="NA" /> <code codeSystem="local" code="GHGLUMON" displayName="GLUCOSE (POC)" /> & lt;statusCode code="completed" /> <effectiveTime value= "025058081078" /> <value unit="mg/dL" xsi: type="PQ" value="110" /> <interpretationCode codeSystem="local" code="*" /> < referenceRange> <observationRange> <text> 70-99</text> </observationRange> </ referenceRange> </observation> </component> </ organizer> </entry> <entry> <organizer moodCode="EVN " classCode="BATTERY"> <templateId root=" 2.16.840.1.516026.10.20.22.4.1" /> <id nullFlavor="NA&quot ; /> <code codeSystem="local" code="GHGLUMON" displayName="GLUCOSE (POC)" /> <statusCode code=" completed" /><component> <observation moodCode="EVN " classCode="OBS"> <templateId root=" 2.16.840.1.223810.10.20.22.4.2" /> <id nullFlavor="NA& quot; /> <code codeSystem="local" code="GHGLUMON& quot; displayName="GLUCOSE (POC)" /> <statusCode code=& quot;completed" /> <effectiveTime value="784404959388" /&gt ; <value unit="mg/dL" xsi:type="PQ" value=" 507" /> <interpretationCode codeSystem="local" code="" /> <referenceRange> < observationRange> <text>70-99</text> < /observationRange> </referenceRange> </observation& gt; </component> </organizer> </entry> <entry&gt ; <organizer moodCode="EVN" classCode="BATTERY"> <templateId root="2.16.840.1.893213.10.20.22.4.1" /> & lt;id nullFlavor="NA" /> <code codeSystem="local&quot ; code="GHGLUMON" displayName="GLUCOSE (POC)" /> &lt ;statusCode code="completed" /> <component> < observation moodCode="EVN" classCode="OBS"> < templateId root="2.16.840.1.894752.10.20.22.4.2" /> < id nullFlavor="NA" /> <code codeSystem="local&quot ; code="GHGLUMON" displayName="GLUCOSE (POC)" /> <statusCode code="completed" /> <effectiveTime value="763969127256" /> <value unit="mg/dL" xsi:type="PQ" value="507" /> < interpretationCode codeSystem="local" code="" /> <referenceRange> <observationRange> < text>70-99</text> </observationRange> </ referenceRange> </observation> </component> </ organizer> </entry> <entry> <organizer moodCode="EVN& quot; classCode="BATTERY"> <templateId root=" 2.16.840.1.435169.10.20.22.4.1" /> <id nullFlavor="NA&quot ; /> <code codeSystem="local" code="GHGLUMON" displayName="GLUCOSE (POC)" /> <statusCode code=" completed" /> <component> <observation moodCode=& quot;EVN" classCode="OBS"> <templateId root=" 2.16.840.1.040367.10.20.22.4.2" /> <id nullFlavor="NA& quot; /> <code codeSystem="local" code="GHGLUMON& quot; displayName="GLUCOSE (POC)" /> <statusCode code=" completed" /> <effectiveTime value="156352039772" /> <value unit="mg/dL" xsi:type="PQ" value=& quot;207" /> <interpretationCode codeSystem="local&quot ; code="*" /> <referenceRange> < observationRange> <text>70-99</text> < /observationRange> </referenceRange> </observation& gt; </component> </organizer> </entry> <entry&gt ; <organizer moodCode="EVN" classCode="BATTERY"> <templateId root="2.16.840.1.867977.10.20.22.4.1" /> & lt;id nullFlavor="NA" /> <code codeSystem="local&quot ; code="GHGLUMON" displayName="GLUCOSE (POC)" /> &lt ;statusCode code="completed" /> <component> < observation moodCode="EVN" classCode="OBS"> < templateId root="2.16.840.1.088555.10.20.22.4.2" /> < id nullFlavor="NA" /> <code codeSystem="local&quot ; code="GHGLUMON" displayName="GLUCOSE (POC)" /> <statusCode code="completed" /> <effectiveTime value="159242749097" /> <value unit="mg/dL" xsi: type="PQ" value="207" /> <interpretationCode codeSystem="local" code="*" /> < referenceRange> <observationRange> <text> 70-99</text> </observationRange> </ referenceRange> </observation> </component> </ organizer> </entry> <entry> <organizer moodCode="EVN " classCode="BATTERY"> <templateId root=" 2.16.840.1.869739.10.20.22.4.1"/> <id nullFlavor="NA" /> <code codeSystem="local" code="UA" displayName ="URINALYSIS, ROUTINE" /> <statusCode code="completed& quot; /> <component> <observation moodCode="EVN& quot; classCode="OBS"> <templateId root=" 2.16.840.1.706911.10.20.22.4.2" /><id nullFlavor="NA" /&gt ; <code codeSystem="local" code="LEUESU" displayName="UA LEUKOCYTE ESTERASE DIPSTICK" /> < statusCode code="completed" /> <effectiveTime value=& quot;246461473477" /> <value unit="" xsi:type=& quot;PQ" value="2+" /> <interpretationCode codeSystem="local" code="*" /> < referenceRange> <observationRange> <text>NEGATIVE </text> </observationRange> </referenceRange& gt; </observation> </component> <component> <observation moodCode="EVN" classCode="OBS"> &lt ;templateId root="2.16.840.1.669462.10.20.22.4.2" /> < id nullFlavor="NA" /> <code codeSystem="local&quot ; code="NITRIU" displayName="UA NITRITE DIPSTICK" /> <statusCode code="completed" /> <effectiveTime value="254154329611" /> <value unit="" xsi: type="PQ" value="POSITIVE" /> < interpretationCode codeSystem="local" code="*" /> <referenceRange> <observationRange> < text>NEGATIVE</text> </observationRange> < /referenceRange> </observation> </component> &lt ;component> <observation moodCode="EVN" classCode="OBS& quot;> <templateId root="2.16.840.1.644104.10.20.22.4.2&quot ; /> <id nullFlavor="NA" /> <code codeSystem="local" code="PROTEIU" displayName="UA PROTEIN DIPSTICK" /> <statusCode code="completed" /> <effectiveTime value="307782723998" /> & lt;value unit="" xsi:type="PQ" value="TRACE" /&gt ; <referenceRange> <observationRange> & lt;text>NEGATIVE</text> </observationRange> & lt;/referenceRange> </observation> </component> <component> <observation moodCode="EVN" classCode=& quot;OBS"> <templateId root=" 2.16.840.1.630850.10.20.22.4.2" /> <id nullFlavor="NA& quot; /> <code codeSystem="local" code="DGLUU&quot ; displayName="UA GLUCOSE DIPSTICK" /> <statusCode code ="completed" /> <effectiveTime value="705849319640 " /> <value unit="" xsi:type="PQ" value= "NEGATIVE" /> <referenceRange> < observationRange><text>NEGATIVE</text> </ observationRange> </referenceRange> </observation&gt ; </component> <component> <observationmoodCode= "EVN" classCode="OBS"> <templateId root=&quot ;2.16.840.1.845491.10..22.4.2" /> <id nullFlavor="NA& quot; /> <code codeSystem="local" code="KETONU& quot; displayName="UA KETONE DIPSTICK" /> <statusCode code ="completed" /> <effectiveTime value="021293940157 " /> <value unit="" xsi:type="PQ" value= "TRACE" /> <interpretationCode codeSystem="local& quot; code="*" /> <referenceRange> < observationRange> <text>NEGATIVE</text> & lt;/observationRange> </referenceRange> </ observation> </component> <component> < observation moodCode="EVN" classCode="OBS"> < templateId root="2.16.840.1.282656.10..22.4.2" /> < id nullFlavor="NA" /> <code codeSystem="local&quot ; code="UROBILU" displayName="UA UROBILINOGEN DIPSTICK" /&gt ; <statusCode code="completed" /> < effectiveTime value="397740712706" /> <value unit="& quot; xsi:type="PQ" value="NORMAL" /> < referenceRange> <observationRange> <text> NORMAL</text> </observationRange> </ referenceRange> </observation> </component> < component> <observation moodCode="EVN" classCode=" OBS"> <templateId root="2.16.840.1.376146.10..22.4.2& quot; /> <id nullFlavor="NA" /> <code codeSystem="local" code="BILU" displayName="UA BILIRUBIN DIPSTICK" /> <statusCode code="completed&quot ; /> <effectiveTime value="506765089584" /> <value unit="" xsi:type="PQ" value="NEGATIVE&quot ; /> <referenceRange> <observationRange> <text>NEGATIVE</text> </observationRange> </referenceRange> </observation> </component> <component> <observation moodCode="EVN" classCode ="OBS"> <templateId root=" 2.16.840.1.548706.10.20.22.4.2" /><id nullFlavor="NA" /&gt ; <code codeSystem="local" code="HILDA" displayName="UA BLOOD DIPSTICK" /> <statusCode code=& quot;completed" /> <effectiveTime value="335271691346& quot; /> <value unit="" xsi:type="PQ" value=& quot;3+" /> <interpretationCode codeSystem="local&quot ; code="*" /> <referenceRange> < observationRange> <text>NEGATIVE</text> & lt;/observationRange> </referenceRange> </observation&gt ; </component> <component> <observation moodCode ="EVN" classCode="OBS"> <templateId root=& quot;2.16.840.1.755775.10.20.22.4.2" /> <id nullFlavor=&quot ;NA" /> <code codeSystem="local" code="SPGRU& quot; displayName="UA SPECIFIC GRAVITY" /> <statusCode code="completed" /> <effectiveTime value=" 355888918940" /> <value unit="" xsi:type="PQ& quot; value="1.015" /> <referenceRange> & lt;observationRange> <text>1.015-1.025</text> </observationRange> </referenceRange> </ observation> </component> <component> <observation moodCode="EVN" classCode="OBS"> <templateId root="2.16.840.1.901567.10.20.22.4.2" /> <id nullFlavor ="NA" /> <code codeSystem="local" code="CLEMENTINE& quot; displayName="UR PH" /> <statusCode code=" completed" /> <effectiveTime value="535880696480" /> <value unit="" xsi:type="PQ" value=" 5.0" /> <referenceRange> <observationRange& gt; <text>5.0-7.0</text> </ observationRange> </referenceRange> </observation&gt ; </component> </organizer> </entry> <entry> <organizer moodCode="EVN" classCode="BATTERY"> <templateId root="2.16.840.1.486013.10.20.22.4.1" /> < id nullFlavor="NA" /> <code codeSystem="local" code="UAMICRO" displayName="UA MICROSCOPIC" /> < statusCode code="completed" /> <component> < observation moodCode="EVN" classCode="OBS"> < templateId root="2.16.840.1.312629.10..22.4.2" /> < id nullFlavor="NA" /> <code codeSystem="local&quot ; code="AMORPU" displayName="UA AMORPHOUS SEDIMENT" /> <statusCode code="completed" /> <effectiveTime value="373475049855" /> <value unit="" xsi: type="PQ" value="NEGATIVE" /> <referenceRange > <observationRange> <text /> </observationRange> </referenceRange> </ observation> </component> <component> < observation moodCode="EVN" classCode="OBS"> < templateId root="2.16.840.1.158898.10.20.22.4.2" /> < id nullFlavor="NA" /> <code codeSystem="local&quot ; code="BACU" displayName="UA BACTERIA" /> < statusCode code="completed" /> <effectiveTime value=& quot;683661735322" /> <value unit="" xsi:type=& quot;PQ" value="3+" /> <interpretationCode codeSystem="local" code="*" /> < referenceRange> <observationRange> <text> NEGATIVE</text> </observationRange> </ referenceRange> </observation> </component> < component> <observation moodCode="EVN" classCode=" OBS"> <templateId root="2.16.840.1.684960.10.20.22.4.2& quot; /> <id nullFlavor="NA" /> <code codeSystem="local" code="EPIU" displayName=" UAEPITHELIAL CELLS" /> <statusCode code="completed&quot ; /> <effectiveTime value="690856376069" /> <value unit="epi/hpf" xsi:type="PQ" value="3+&quot ; /> <interpretationCode codeSystem="local" code=" *" /> <referenceRange> <observationRange&gt ; <text>0 - 1+</text> </observationRange> </referenceRange> </observation> </component& gt; <component> <observation moodCode="EVN" classCode="OBS"> <templateId root=" 2.16.840.1.992550.10.20.22.4.2" /> <id nullFlavor="NA& quot; /> <code codeSystem="local" code="MUCUSU& quot; displayName="UA MUCUS" /> <statusCode code=" completed" /> <effectiveTime value="849889595999" /> <value unit="" xsi:type="PQ" value=" NEGATIVE" /> <referenceRange> < observationRange> <text>NEG TO 1+</text> </observationRange> </referenceRange> </ observation> </component> <component> < observation moodCode="EVN" classCode="OBS"> < templateId root="2.16.840.1.800226.10.20.22.4.2" /> < id nullFlavor="NA" /> <code codeSystem="local&quot ; code="RBCU" displayName="UA RBC" /> < statusCode code="completed" /> <effectiveTime value=& quot;973468962874" /> <value unit="rbc/hpf" xsi:type=" PQ" value="3-5" /> <interpretationCode codeSystem= "local" code="*" /> <referenceRange> <observationRange> <text>0 - 3</text> </observationRange> </referenceRange> </ observation> </component> <component> < observation moodCode="EVN" classCode="OBS"> < templateId root="2.16.840.1.659080.10.20.22.4.2" /> < id nullFlavor="NA" /> <code codeSystem="local&quot ; code="TRICHOU"displayName="UA TRICHOMONAS" /> <statusCode code="completed" /> <effectiveTime value ="719020708471" /> <value unit="" xsi:type=& quot;PQ" value="NEGATIVE" /> <referenceRange>& lt;observationRange> <text>NEGATIVE</text> </observationRange> </referenceRange> </ observation> </component> <component> < observation moodCode="EVN" classCode="OBS"> < templateId root="2.16.840.1.551870.10.20.22.4.2" /> < id nullFlavor="NA" /> <code codeSystem="local&quot ; code="UAVOL" displayName="UA VOLUME FOR EXAM" /> <statusCode code="completed" /><effectiveTime value=&quot ;606101029329" /> <value unit="mL" xsi:type=" PQ" value="12.0" /> <referenceRange> <observationRange> <text>(12mL STD)</text> </observationRange> </referenceRange> </ observation> </component> <component> < observation moodCode="EVN" classCode="OBS"> < templateId root="2.16.840.1.812060.10.20.22.4.2" /> < id nullFlavor="NA" /> <code codeSystem="local&quot ; code="URIU" displayName="UA URIC ACID CRYSTALS" /> <statusCode code="completed" /> < effectiveTime value="827882627912" /> <value unit=&quot ;" xsi:type="PQ" value="PRESENT" /> < interpretationCode codeSystem="local" code="*" /> <referenceRange> <observationRange> <text> NEGATIVE</text> </observationRange> </ referenceRange> </observation> </component> < component> <observation moodCode="EVN" classCode=" OBS"> <templateId root="2.16.840.1.951990.10.20.22.4.2& quot; /> <id nullFlavor="NA" /> <code codeSystem="local" code="WBCU" displayName="UA WBC&quot ; /> <statusCode code="completed" /> < effectiveTime value="707721662020" /> <value unit=&quot ;wbc/hpf" xsi:type="PQ" value="10-20" /> & lt;interpretationCode codeSystem="local" code="*" /> <referenceRange> <observationRange> & lt;text>0 - 5</text> </observationRange> < /referenceRange> </observation> </component> < component> <observation moodCode="EVN" classCode=" OBS"> <templateId root="2.16.840.1.295603.10..22.4.2& quot; /> <id nullFlavor="NA" /> <code codeSystem="local" code="YEASU" displayName="UA YEAST& quot; /> <statusCode code="completed" /> & lt;effectiveTime value="116919487644" /> <value unit=& quot;" xsi:type="PQ" value="NEGATIVE" /> & lt;referenceRange> <observationRange> <text&gt ;NEGATIVE</text> </observationRange> </ referenceRange> </observation> </component> </ organizer> </entry> <entry> <organizer moodCode="EVN " classCode="BATTERY"> <templateId root=" 2.16.840.1.344234.10.20.22.4.1" /> <id nullFlavor="NA&quot ; /> <code codeSystem="local" code="FLORI" displayName="UR SODIUM" /> <statusCode code="completed " /> <component> <observation moodCode="EVN& quot; classCode="OBS"> <templateId root=" 2.16.840.1.666717.10..22.4.2" /> <id nullFlavor="NA& quot; /> <code codeSystem="local" code="NAUCOM& quot; displayName="UR SODIUM COMMENT" /> <statusCode code="completed" /> <effectiveTime value=" 369145070218" /> <value unit="" xsi:type="PQ& quot; value="RANDOM" /> <referenceRange> <observationRange> <text /> </ observationRange> </referenceRange> </observation&gt ; </component> <component> <observation moodCode=" EVN" classCode="OBS"> <templateId root=" 2.16.840.1.599339.10.20.22.4.2" /> <id nullFlavor="NA& quot; /> <code codeSystem="local" code="NAULEV" displayName="UR SODIUM LEVEL" /> <statusCode code=&quot ;completed" /> <effectiveTime value="959874153402&quot ; /> <value unit="mmol/L" xsi:type="PQ" value ="47" /> <interpretationCode codeSystem="local& quot; code="*" /> <referenceRange> < observationRange> <text>20-40</text> < /observationRange> </referenceRange> </observation& gt; </component> </organizer> </entry> <entry&gt ; <organizer moodCode="EVN" classCode="BATTERY"> <templateId root="2.16.840.1.301477.10.20.22.4.1" /> & lt;id nullFlavor="NA" /> <codecodeSystem="local" code="CREATU" displayName="UR CREATININE" /> < statusCode code="completed" /> <component> < observation moodCode="EVN" classCode="OBS"> < templateId root="2.16.840.1.418351.10.20.22.4.2" /> < id nullFlavor="NA" /> <code codeSystem="local&quot ; code="CREATUCOM" displayName="UR CREATININE COMMENT" /&gt ; <statusCode code="completed" /> < effectiveTime value="380417615806" /> <value unit=&quot ;" xsi:type="PQ" value="RANDOM" /> < referenceRange> <observationRange> <text /& gt; </observationRange> </referenceRange> </observation> </component> <component> &lt ;observation moodCode="EVN" classCode="OBS"> &lt ;templateId root="2.16.840.1.631513.10.20.22.4.2" /> < id nullFlavor="NA" /> <code codeSystem="local&quot ; code="CREATULEV" displayName="UR CREATININE LEVEL" /> <statusCode code="completed" /> < effectiveTime value="845744214613" /> <value unit="mg/dL& quot; xsi:type="PQ" value="90.4" /> < referenceRange> <observationRange> <text> 44-467</text> </observationRange> </ referenceRange> </observation></component> </ organizer> </entry> <entry> <organizer moodCode="EVN " classCode="BATTERY"> <templateId root=" 2.16.840.1.288891.10.20.22.4.1" /> <id nullFlavor="NA&quot ; /> <code codeSystem="local" code="UC" displayName="URINE CULTURE" /> <statusCode code=" completed" /> <component> <observation moodCode=& quot;EVN" classCode="OBS"> <templateId root=" 2.16.840.1.644989.10.20.22.4.2" /> <id nullFlavor="NA& quot; /> <code codeSystem="local" code="MB" displayName="Microbiology" /> <statusCode code=" completed" /> <effectiveTime value="628085488016" /> <value xsi:type="ST" value="<pre> <b>URINE CULTURE - CARBAPENEMASE PCR</b> See BelowURINE CULTURE(F) Aarti Date/Time: 04/08/2017 15:19 Mara Date/Time: // :SOURCE: URINESPEC DESC: CLEAN CATCHSee BelowURINE CULTURE(F) Aarti Date/Time: 04/08/2017 15:19 Mara Date/Time: 04/12/2017 11:01SOURCE: URINESPEC DESC: CLEAN CATCHTREATMENT OF ASYMPTOMATIC BACTERIURIA IS NOT USUALLYCLINICALLY INDICATED.Organism #1 ENTEROBACTER CLOACAE COMPLEXCOLONY COUNT >100,000 CFU/ML COMMENTS ESBL NOT CONFIRMED InterpCEFEPIME VITEK<=1 RCIPROFLOXACIN VITEK <= 0.25 SGENTAMICIN VITEK <=1 SMEROPENEM VITEK <=0.25 RNITROFURANTOIN VITEK 64 IPIPERACILLIN/TAZOBZCTAM VITEK 32 RTRIMETH/SULFA VITEK & lt;=20 SOrganism #2 PSEUDOMONAS AERUGINOSACOLONY COUNT >100,000 CFU/ML InterpCEFEPIME VITEK 2 SCIPROFLOXACIN VITEK <=0.25 SGENTAMICIN VITEK <=1 SPIPERACILLIN/TAZOBZCTAM VITEK 8 STOBRAMYCIN VITEK < =[address] [place], [id number] BelowCARBAPENEMASE PCR(F) Aarti Date/Time: 04/08/2017 15:19 Mara Date/Time: // :SOURCE: URINESPEC DESC: CLEAN CATCHSee BelowCARBAPENEMASE PCR (F) Aarti Date/Time: 04/08/2017 15:19 Mara Date/ Time: 04/12/2017 11:01SOURCE: URINESPEC DESC: CLEAN CATCHIMIPENEMASE CLASS MBLIMP TARGET DNA SEQUENCE NOT DETECTEDKLEP PNEUMO CARBAPENEMASEKPC TARGET DNA SEQUENCE NOT DETECTEDNEW DELHI METALLO-BLNDM TARGET DNA SEQUENCE NOTDETECTEDORGANISM:ENTEROBACTER CLOACAE COMPLEXCLASS D OXACILLINASEOXA-48 TARGET DNA SEQUENCE NOT DETECTEDVERONA INTEGRIN-MEDIATEDVIM TARGET DNA SEQUENCE NOT DETECTED[place] [address] [place] [address]</pre&amp ;gt;" /> <referenceRange> <observationRange > <text /> </observationRange> & lt;/referenceRange> </observation> </component> & lt;/organizer> </entry> <entry> <organizer moodCode=" EVN" classCode="BATTERY"> <templateId root=" 2.16.840.1.697501.10.20.22.4.1" /> <id nullFlavor="NA&quot ; /> <code codeSystem="local" code="UA" displayName="URINALYSIS, ROUTINE" /> <statusCode code=&quot ;completed" /> <component> <observation moodCode="EVN " classCode="OBS"> <templateId root=" 2.16.840.1.587634.10.20.22.4.2" /> <id nullFlavor="NA& quot; /> <code codeSystem="local" code="LEUESU" displayName="UA LEUKOCYTE ESTERASE DIPSTICK" /> < statusCode code="completed" /> <effectiveTime value=& quot;222392601534" /> <value unit="" xsi:type=& quot;PQ" value="2+" /> <interpretationCode codeSystem="local" code="*" /> < referenceRange> <observationRange> <text> NEGATIVE</text> </observationRange> </ referenceRange> </observation> </component> < component> <observation moodCode="EVN" classCode=" OBS"> <templateId root="2..840.1.478769.10..22.4.2& quot; /> <id nullFlavor="NA" /> <code codeSystem="local" code="NITRIU" displayName="UA NITRITE DIPSTICK" /> <statusCode code="completed" /& gt; <effectiveTime value="313819624881" /> &lt ;value unit="" xsi:type="PQ" value="POSITIVE" /&gt ; <interpretationCode codeSystem="local" code="*&quot ; /> <referenceRange> <observationRange> <text>NEGATIVE</text> </observationRange> </referenceRange> </observation> </component&gt ; <component> <observation moodCode="EVN" classCode="OBS"> <templateId root=" 2.16.840.1.884060.10.20.22.4.2" /> <id nullFlavor="NA& quot; /> <code codeSystem="local" code="PROTEIU& quot; displayName="UA PROTEIN DIPSTICK" /> < statusCodecode="completed" /> <effectiveTime value=& quot;459082020574" /> <value unit="" xsi:type="PQ& quot; value="TRACE" /> <referenceRange> & lt;observationRange> <text>NEGATIVE</text> </observationRange> </referenceRange> </ observation> </component> <component> < observation moodCode="EVN" classCode="OBS"> < templateId root="2.16.840.1.955634.10.20.22.4.2" /> <id nullFlavor="NA" /> <code codeSystem="local" code="DGLUU" displayName="UA GLUCOSE DIPSTICK" /> <statusCode code="completed" /> <effectiveTime value="948507135117" /> <value unit="" xsi: type="PQ" value="NEGATIVE" /> <referenceRange > <observationRange> <text>NEGATIVE</ text> </observationRange> </referenceRange> < /observation> </component> <component> < observation moodCode="EVN" classCode="OBS"> < templateId root="2.16.840.1.385274.10..22.4.2" /> < id nullFlavor="NA" /> <code codeSystem="local&quot ; code="KETONU" displayName="UA KETONE DIPSTICK" /> <statusCode code="completed" /> <effectiveTime value="723315416826" /> <value unit="" xsi: type="PQ" value="TRACE" /> < interpretationCode codeSystem="local" code="*" /> <referenceRange> <observationRange> < text>NEGATIVE</text> </observationRange> < /referenceRange> </observation> </component> &lt ;component> <observation moodCode="EVN" classCode=" OBS"> <templateId root="2.16.840.1.589101.10.20.22.4.2& quot; /> <id nullFlavor="NA" /> <code codeSystem="local" code="UROBILU" displayName="UA UROBILINOGEN DIPSTICK" /> <statusCode code="completed& quot; /> <effectiveTime value="279956749770" /> < value unit="" xsi:type="PQ" value="NORMAL" /> <referenceRange> <observationRange> <text>NORMAL</text> </observationRange> </ referenceRange> </observation> </component> < component> <observation moodCode="EVN" classCode=" OBS"> <templateId root="2.16.840.1.674502.10.20.22.4.2& quot; /> <id nullFlavor="NA" /> <code codeSystem="local" code="BILU" displayName="UA BILIRUBIN DIPSTICK" /> <statusCode code="completed&quot ; /> <effectiveTime value="313037922292" /> <value unit="" xsi:type="PQ" value="NEGATIVE&quot ; /> <referenceRange> <observationRange> <text>NEGATIVE</text> </observationRange&gt ; </referenceRange> </observation> </ component> <component> <observation moodCode="EVN" classCode="OBS"> <templateId root=" 2.16.840.1.352493.10..22.4.2" /> <id nullFlavor="NA& quot; /> <code codeSystem="local" code="HILDA" displayName="UA BLOOD DIPSTICK" /> <statusCode code=& quot;completed" /> <effectiveTime value="443814661949& quot; /> <value unit="" xsi:type="PQ" value=& quot;3+" /> <interpretationCode codeSystem="local&quot ; code="*" /> <referenceRange> < observationRange> <text>NEGATIVE</text> & lt;/observationRange> </referenceRange> </ observation> </component> <component> < observation moodCode="EVN" classCode="OBS"> < templateId root="2.16.840.1.990797.10.20.22.4.2" /> < id nullFlavor="NA" /> <code codeSystem="local&quot ; code="SPGRU" displayName="UA SPECIFIC GRAVITY" /> <statusCode code="completed" /> <effectiveTime value="[id number]" /> <value unit="" xsi: type="PQ" value="1.015" /><referenceRange> <observationRange> <text>1.015-1.025</text> </observationRange> </referenceRange> &lt ;/observation> </component> <component> < observation moodCode="EVN" classCode="OBS"> < templateId root="[id number]"/> <id nullFlavor="NA" /> <code codeSystem="local" code="CLEMENTINE" displayName="UR PH" /> < statusCode code="completed" /> <effectiveTime value=& quot;[id number]" /> <value unit="" xsi:type=& quot;PQ" value="5.0" /> <referenceRange> <observationRange> <text>5.0-7.0</text> </observationRange> </referenceRange> </ observation> </component> </organizer> </entry> < entry> <organizer moodCode="EVN" classCode="BATTERY&quot ;> <templateId root="2.16.840.1.660534.10.20.22.4.1" /> <id nullFlavor="NA" /> <code codeSystem="local& quot; code="UAMICRO" displayName="UA MICROSCOPIC" /> <statusCode code="completed" /> <component> <observation moodCode="EVN" classCode="OBS"> <templateId root="2.16.840.1.018012.10.20.22.4.2" /> & lt;idnullFlavor="NA" /> <code codeSystem="local& quot; code="AMORPU" displayName="UA AMORPHOUS SEDIMENT" /&gt ; <statusCode code="completed" /> < effectiveTime value="230955003110" /> <value unit=&quot ;" xsi:type="PQ" value="NEGATIVE" /> < referenceRange> <observationRange> <text /> </observationRange> </referenceRange> </ observation> </component> <component> < observation moodCode="EVN" classCode="OBS"> < templateId root="2.16.840.1.676701.10.20.22.4.2" /> < id nullFlavor="NA" /> <code codeSystem="local&quot ; code="BACU" displayName="UA BACTERIA" /> < statusCode code="completed" /> <effectiveTimevalue=& quot;300243392462" /> <value unit="" xsi:type=& quot;PQ" value="3+" /> <interpretationCode codeSystem="local" code="*" /> < referenceRange> <observationRange> <text> NEGATIVE</text> </observationRange> </ referenceRange> </observation> </component> < component> <observation moodCode="EVN" classCode=" OBS"> <templateId root="2.16.840.1.343909.10.20.22.4.2& quot; /> <id nullFlavor="NA" /> <code codeSystem="local" code="EPIU" displayName="UA EPITHELIAL CELLS" /> <statusCode code="completed" /> <effectiveTime value="543436076681"/> & lt;value unit="epi/hpf" xsi:type="PQ" value="3+" / > <interpretationCode codeSystem="local" code="*& quot; /> <referenceRange> <observationRange> <text>0 - 1+</text> </observationRange> </referenceRange> </observation> </component > <component> <observation moodCode="EVN" classCode="OBS"> <templateId root=" 2.16.840.1.737895.10.20.22.4.2" /> <id nullFlavor="NA" / > <code codeSystem="local" code="MUCUSU" displayName="UA MUCUS" /> <statusCode code=" completed" /> <effectiveTime value="696067799052" /> <value unit="" xsi:type="PQ" value=" NEGATIVE" /> <referenceRange> <observationRange& gt; <text>NEG TO 1+</text> </ observationRange> </referenceRange> </observation&gt ; </component> <component> <observation moodCode= "EVN" classCode="OBS"> <templateId root=" 2.16.840.1.010995.10.20.22.4.2" /> <id nullFlavor="NA& quot; /> <code codeSystem="local" code="RBCU&quot ; displayName="UA RBC" /> <statusCode code=" completed" /> <effectiveTime value="324772310215" /> <value unit="rbc/hpf" xsi:type="PQ" value= "3-5" /> <interpretationCode codeSystem="local& quot; code="*" /> <referenceRange> < observationRange> <text>0 - 3</text> </ observationRange> </referenceRange> </observation&gt ; </component> <component> <observation moodCode ="EVN" classCode="OBS"> <templateId root=& quot;2.16.840.1.284982.10.20.22.4.2" /> <id nullFlavor=&quot ;NA" /> <code codeSystem="local" code=" TRICHOU" displayName="UA TRICHOMONAS" /> < statusCode code="completed" /> <effectiveTime value=& quot;007775816241" /> <value unit="" xsi:type=& quot;PQ" value="NEGATIVE" /> <referenceRange> <observationRange> <text>NEGATIVE</text& gt; </observationRange> </referenceRange> & lt;/observation> </component> <component> < observation moodCode="EVN" classCode="OBS"> < templateId root="2.16.840.1.226347.10.20.22.4.2" /> < id nullFlavor="NA" /> <code codeSystem="local&quot ; code="UAVOL" displayName="UA VOLUME FOR EXAM" /> < statusCode code="completed" /> <effectiveTime value=& quot;066594244892" /> <value unit="mL" xsi:type=& quot;PQ" value="12.0" /> <referenceRange> <observationRange> <text>(12mL STD)</text&gt ; </observationRange> </referenceRange> & lt;/observation> </component> <component> < observation moodCode="EVN" classCode="OBS"> < templateId root="2.16.840.1.603986.10.20.22.4.2" /> < id nullFlavor="NA" /> <code codeSystem="local&quot ; code="URIU" displayName="UA URIC ACID CRYSTALS" /> <statusCode code="completed" /> < effectiveTime value="786349682471" /> <value unit=&quot ;" xsi:type="PQ" value="PRESENT" /> < interpretationCode codeSystem="local" code="*" /> <referenceRange> <observationRange> < text>NEGATIVE</text> </observationRange> </ referenceRange> </observation> </component> < component> <observation moodCode="EVN" classCode=" OBS"> <templateId root="2.16.840.1.507089.10.20.22.4.2& quot; /> <id nullFlavor="NA" /> <code codeSystem ="local" code="WBCU" displayName="UA WBC" /> <statusCode code="completed" /> < effectiveTime value="373487197462" /> <value unit=&quot ;wbc/hpf" xsi:type="PQ" value="10-20" /> & lt;interpretationCode codeSystem="local" code="*" /> <referenceRange> <observationRange> & lt;text>0 - 5</text> </observationRange> </ referenceRange> </observation> </component> < component> <observation moodCode="EVN" classCode=" OBS"> <templateId root="2.16.840.1.695064.10.20.22.4.2& quot; /> <id nullFlavor="NA" /> <code codeSystem="local" code="YEASU" displayName="UA YEAST& quot; /> <statusCode code="completed" /> & lt;effectiveTime value="528470816427" /> <value unit=& quot;" xsi:type="PQ" value="NEGATIVE" /> & lt;referenceRange> <observationRange> <text> NEGATIVE</text> </observationRange> </ referenceRange> </observation> </component> </ organizer> </entry> <entry> <organizer moodCode="EVN " classCode="BATTERY"> <templateId root=" 2.16.840.1.583311.10.20.22.4.1" /> <id nullFlavor="NA&quot ; /> <code codeSystem="local" code="FLORI" displayName="UR SODIUM" /> <statusCode code="completed " /> <component> <observation moodCode="EVN& quot; classCode="OBS"> <templateId root=" 2.16.840.1.728812.10..22.4.2" /> <id nullFlavor="NA& quot; /> <code codeSystem="local" code="NAUCOM& quot; displayName="UR SODIUM COMMENT" /> <statusCode code="completed" /> <effectiveTime value=" 681281338889" /> <value unit="" xsi:type="PQ& quot; value="RANDOM" /> <referenceRange> <observationRange> <text /> </ observationRange> </referenceRange> </observation&gt ; </component> <component> <observation moodCode ="EVN" classCode="OBS"> <templateId root=& quot;2.16.840.1.031908.10.20.22.4.2"/> <id nullFlavor=" NA" /> <code codeSystem="local"code="NAULEV& quot; displayName="UR SODIUM LEVEL" /> <statusCode code ="completed" /> <effectiveTime value="493199518731 " /> <value unit="mmol/L" xsi:type="PQ" value="47" /> <interpretationCode codeSystem=" local" code="*" /> <referenceRange> & lt;observationRange> <text>20-40</text> & lt;/observationRange> </referenceRange> </ observation> </component> </organizer> </entry> &lt ;entry> <organizer moodCode="EVN" classCode="BATTERY& quot;> <templateId root="2.16.840.1.194127.10.20.22.4.1" /& gt; <id nullFlavor="NA" /> <code codeSystem=" local" code="CREATU" displayName="UR CREATININE" /> <statusCode code="completed"/> <component> <observation moodCode="EVN" classCode="OBS"> <templateId root="2.16.840.1.169459.10.20.22.4.2" /> <id nullFlavor="NA" /> <code codeSystem=" local" code="CREATUCOM" displayName="UR CREATININE COMMENT& quot; /> <statusCode code="completed" /> & lt;effectiveTime value="211582576459" /> <value unit=& quot;" xsi:type="PQ" value="RANDOM" /> < referenceRange> <observationRange> <text /> </observationRange> </referenceRange> </ observation> </component> <component> < observation moodCode="EVN" classCode="OBS"> < templateId root="2.16.840.1.040355.10.20.22.4.2" /> < id nullFlavor="NA" /> <code codeSystem="local&quot ; code="CREATULEV" displayName="UR CREATININE LEVEL" /> <statusCode code="completed" /> < effectiveTime value="884812376571" /> <value unit=&quot ;mg/dL" xsi:type="PQ" value="90.4" /> < referenceRange> <observationRange> <text> 44-467</text> </observationRange> </referenceRange&gt ; </observation> </component> </organizer> &lt ;/entry> <entry> <organizer moodCode="EVN" classCode=& quot;BATTERY"> <templateId root=" 2.16.840.1.777538.10.20.22.4.1" /> <id nullFlavor="NA&quot ; /> <code codeSystem="local" code="UC" displayName="URINE CULTURE" /> <statusCode code=" completed" /> <component> <observation moodCode=& quot;EVN" classCode="OBS"> <templateId root=" 2.16.840.1.782648.10.20.22.4.2" /> <id nullFlavor="NA& quot; /> <code codeSystem="local" code="MB" displayName="Microbiology" /> <statusCode code=" completed" /> <effectiveTime value="906381815357" /> <value xsi:type="ST" value="<pre> <b>URINE CULTURE - CARBAPENEMASE PCR</b> See BelowURINE CULTURE(F) Aarti Date/Time: 04/08/2017 15:19 Mara Date/Time: // :SOURCE: URINESPEC DESC: CLEAN CATCHSee BelowURINE CULTURE(F) Aarti Date/Time: 04/08/201715:19 Mara Date/Time: 04/12/2017 11:01SOURCE: URINESPEC DESC: CLEANCATCHTREATMENT OF ASYMPTOMATIC BACTERIURIA IS NOT USUALLYCLINICALLY INDICATED.Organism #1 ENTEROBACTER CLOACAE COMPLEXCOLONY COUNT >100,000 CFU/ML COMMENTS ESBL NOT CONFIRMED InterpCEFEPIME VITEK <=1 RCIPROFLOXACIN VITEK <=0.25 SGENTAMICIN VITEK <=1 SMEROPENEM VITEK <=0.25 RNITROFURANTOIN VITEK 64 IPIPERACILLIN/TAZOBZCTAM VITEK 32 RTRIMETH/SULFA VITEK & amp;lt;=20 SOrganism #2 PSEUDOMONAS AERUGINOSACOLONY COUNT >100, 000 CFU/ML InterpCEFEPIME VITEK 2 SCIPROFLOXACIN VITEK <=0.25 SGENTAMICIN VITEK <=1 SPIPERACILLIN/TAZOBZCTAM VITEK 8 STOBRAMYCIN VITEK <=1 [facility] [place], [place] [address]Mny BelowCARBAPENEMASE PCR(F) Aarti Date/Time: 2016 15:19 Mara Date/Time: // :SOURCE: URINESPEC DESC: CLEAN CATCHSee BelowCARBAPENEMASE PCR(F) Aarti Date/ Time: 04/08/2017 15:19 Mara Date/Time: 04/12/2017 11: 01SOURCE: URINESPEC DESC: CLEAN CATCHIMIPENEMASE CLASS MBLIMP TARGET DNA SEQUENCE NOT DETECTEDKLEP PNEUMO CARBAPENEMASEKPC TARGET DNA SEQUENCE NOT DETECTEDNEW DELHI METALLO-BLNDM TARGET DNA SEQUENCE NOT DETECTEDORGANISM: ENTEROBACTER CLOACAE COMPLEXCLASS D OXACILLINASEOXA-48 TARGET DNA SEQUENCE NOT DETECTEDVERONA INTEGRIN-MEDIATEDVIM TARGET DNA SEQUENCE NOT DETECTEDSANFORD MED[facility]ENTER[address] [place] [place] [address]</pre>" /> <referenceRange> <observationRange> <text /> </observationRange> </referenceRange& gt; </observation> </component> </organizer> </ entry> <entry> <organizer moodCode="EVN" classCode=& quot;BATTERY"> <templateId root=" 2.16.840.1.819429.10.20.22.4.1" /> <id nullFlavor="NA&quot ; /> <code codeSystem="local" code="GHGLUMON" displayName="GLUCOSE (POC)" /> <statusCode code=" completed" /> <component> <observation moodCode=& quot;EVN" classCode="OBS"> <templateId root=" 2.16.840.1.306794.10.20.22.4.2"/> <id nullFlavor="NA& quot; /> <code codeSystem="local"code="GHGLUMON& quot; displayName="GLUCOSE (POC)" /> <statusCode code=& quot;completed" /> <effectiveTime value="588013670683& quot; /> <value unit="mg/dL" xsi:type="PQ" value="194" /> <interpretationCode codeSystem=" local" code="*" /> <referenceRange> & lt;observationRange> <text>70-99</text> & lt;/observationRange> </referenceRange> </ observation> </component> </organizer> </entry> &lt ;entry> <organizer moodCode="EVN" classCode="BATTERY& quot;> <templateId root="2.16.840.1.283815.10.20.22.4.1" /& gt; <id nullFlavor="NA" /> <code codeSystem=" local" code="GHGLUMON" displayName="GLUCOSE (POC)" /&gt ; <statusCode code="completed" /> <component> <observation moodCode="EVN" classCode="OBS"> <templateId root="2.16.840.1.373642.10.20.22.4.2" /> <id nullFlavor="NA" /> <code codeSystem=" local" code="GHGLUMON" displayName="GLUCOSE (POC)" /&gt ; <statusCode code="completed" /> < effectiveTime value="909921843414" /> <value unit=&quot ;mg/dL" xsi:type="PQ" value="194" /> < interpretationCode codeSystem="local" code="*" /> <referenceRange> <observationRange> < text>70-99</text> </observationRange> </ referenceRange> </observation> </component> </ organizer> </entry> <entry> <organizer moodCode="EVN& quot; classCode="BATTERY"> <templateId root=" 2.16.840.1.807654.10.20.22.4.1" /> <id nullFlavor="NA&quot ; /> <code codeSystem="local" code="GHGLUMON" displayName="GLUCOSE (POC)" /> <statusCode code=" completed" /> <component> <observation moodCode=& quot;EVN" classCode="OBS"> <templateId root=" 2.16.840.1.504458.10.20.22.4.2" /> <id nullFlavor="NA& quot; /> <code codeSystem="local" code="GHGLUMON& quot; displayName="GLUCOSE (POC)" /> <statusCode code=& quot;completed" /> <effectiveTime value="657266544274& quot; /> <value unit="mg/dL" xsi:type="PQ" value="132" /> <interpretationCode codeSystem=" local" code="*" /> <referenceRange> <observationRange> <text>70-99</text> </ observationRange> </referenceRange> </observation&gt ; </component> </organizer> </entry> <entry> <organizer moodCode="EVN" classCode="BATTERY"> <templateId root="2.16.840.1.705301.10.20.22.4.1" /> < id nullFlavor="NA" /> <code codeSystem="local" code="GHGLUMON" displayName="GLUCOSE (POC)" /> < statusCode code="completed" /> <component> < observation moodCode="EVN" classCode="OBS"> < templateId root="2.16.840.1.864487.10.20.22.4.2" /> < id nullFlavor="NA" /><code codeSystem="local" code=& quot;GHGLUMON" displayName="GLUCOSE (POC)" /> < statusCode code="completed" /> <effectiveTime value=& quot;667646434260" /> <value unit="mg/dL" xsi:type ="PQ" value="132" /> <interpretationCode codeSystem="local" code="*" /> < referenceRange> <observationRange> <text> 70-99</text> </observationRange> </ referenceRange> </observation> </component> </ organizer> </entry> <entry> <organizer moodCode="EVN " classCode="BATTERY"> <templateId root=" 2.16.840.1.284687.10.20.22.4.1" /> <id nullFlavor="NA&quot ; /> <code codeSystem="local" code="CBCD" displayName="CBC W/DIFF" /> <statusCode code=" completed" /> <component> <observation moodCode=& quot;EVN" classCode="OBS"> <templateId root=" 2.16.840.1.372410.10.20.22.4.2" /> <id nullFlavor="NA& quot; /> <code codeSystem="local" code="CBCCOM& quot; displayName="COMMENT" /> <statusCode code=" completed" /> <effectiveTime value="847748748313" /><value unit="" xsi:type="PQ" value="REVIEWED& quot; /> <referenceRange> <observationRange> <text /> </observationRange> </ referenceRange> </observation> </component> < component> <observation moodCode="EVN" classCode=" OBS"> <templateId root="2.16.840.1.055342.10.20.22.4.2& quot; /> <id nullFlavor="NA" /> <code codeSystem="local" code="EO#" displayName="EOSINOPHIL # " /> <statusCode code="completed" />< effectiveTime value="337837098332" /> <value unit=&quot ;k/cumm" xsi:type="PQ" value="0.1" /> < referenceRange> <observationRange> <text> 0.1-0.5</text> </observationRange> </ referenceRange> </observation> </component> < component> <observation moodCode="EVN" classCode=" OBS"> <templateId root="2.16.840.1.974578.10..22.4.2& quot; /> <id nullFlavor="NA" /> <code codeSystem="local" code="EO%" displayName=" EOSINOPHIL %" /> <statusCode code="completed& quot; /> <effectiveTime value="281571037363" /> <value unit="%" xsi:type="PQ" value="1 " /> <interpretationCode codeSystem="local" code=& quot;*" /> <referenceRange> < observationRange> <text>2-4</text> </ observationRange> </referenceRange> </observation&gt ; </component> <component> <observation moodCode ="EVN" classCode="OBS"> <templateId root=& quot;2.16.840.1.539351.10.20.22.4.2" /> <id nullFlavor=&quot ;NA" /> <code codeSystem="local" code="GR#& quot; displayName="GRANULOCYTE #" /> <statusCode code=& quot;completed" /> <effectiveTime value="798802573325& quot; /> <value unit="k/cumm" xsi:type="PQ" value="8.4" /> <referenceRange> < observationRange> <text>2.0-9.0</text> & lt;/observationRange> </referenceRange> </observation> </component> <component> <observation moodCode=& quot;EVN" classCode="OBS"> <templateId root=" 2.16.840.1.704098.10.20.22.4.2" /> <id nullFlavor="NA& quot; /> <code codeSystem="local" code="GR&#37 ;" displayName="GRANULOCYTE %" /> <statusCode code="completed" /> <effectiveTime value=" 541192777809" /> <value unit="%" xsi:type= "PQ" value="75" /> <referenceRange> <observationRange> <text>50-75</text> </observationRange> </referenceRange></ observation> </component> <component> < observation moodCode="EVN" classCode="OBS"> < templateId root="2.16.840.1.517071.10..22.4.2" /> < id nullFlavor="NA" /> <code codeSystem="local&quot ; code="LY#" displayName="LYMPHOCYTE #" /> < statusCode code="completed" /> <effectiveTime value=& quot;840529900930" /> <value unit="k/cumm" xsi:type= "PQ" value="1.7" /> <referenceRange> & lt;observationRange> <text>1.0-4.0</text> </observationRange> </referenceRange> </ observation> </component> <component> < observation moodCode="EVN" classCode="OBS"> < templateId root="2.16.840.1.087973.10..22.4.2" /> < id nullFlavor="NA" /> <code codeSystem="local&quot ; code="LY%" displayName="LYMPHOCYTE %" /&gt ; <statusCode code="completed" /> < effectiveTime value="300237946539" /> <value unit="& amp;#37;" xsi:type="PQ" value="15" /> < interpretationCode codeSystem="local" code="*" /> <referenceRange> <observationRange> < text>20-30</text></observationRange> </referenceRange > </observation> </component> <component> <observation moodCode="EVN" classCode="OBS"> <templateId root="2.16.840.1.151799.10.20.22.4.2" /> <id nullFlavor="NA" /> <code codeSystem=& quot;local" code="MCH" displayName="MEAN CELL HGB" /&gt ; <statusCode code="completed" /> < effectiveTime value="152577720314" /> <value unit=&quot ;pg" xsi:type="PQ" value="27.8" /> < referenceRange> <observationRange> <text> 27.0-33.0</text> </observationRange> </ referenceRange> </observation> </component> < component> <observation moodCode="EVN" classCode=" OBS"> <templateId root="2..840.1.318252.10.20.22.4.2" /& gt; <id nullFlavor="NA" /> <code codeSystem ="local" code="MCHC" displayName="MEAN CELL HGB CONCENTRATION" /> <statusCode code="completed" /& gt; <effectiveTime value="268546256050" /> < value unit="g/dL" xsi:type="PQ" value="30.1" /&gt ; <interpretationCode codeSystem="local" code="*&quot ; /> <referenceRange> <observationRange> <text>32.0-37.0</text> </observationRange&gt ; </referenceRange> </observation> </component> <component> <observation moodCode="EVN" classCode=& quot;OBS"> <templateIdroot=" 2.16.840.1.153686.10.20.22.4.2" /> <id nullFlavor="NA& quot; /> <code codeSystem="local" code="MCV" displayName="MEAN CELL VOLUME" /> <statusCode code=& quot;completed" /> <effectiveTime value="169987186362& quot; /> <value unit="fl" xsi:type="PQ" value ="92.4" /> <referenceRange> < observationRange> <text>80.0-100.0</text> </ observationRange> </referenceRange> </observation&gt ; </component> <component> <observation moodCode ="EVN" classCode="OBS"> <templateId root=& quot;2.16.840.1.553661.10.20.22.4.2" /> <id nullFlavor=&quot ;NA" /> <code codeSystem="local" code="MO#& quot; displayName="MONOCYTE #" /> <statusCode code=" completed" /> <effectiveTime value="065348630569" /> <value unit="k/cumm" xsi:type="PQ" value=& quot;1.0" /> <referenceRange> < observationRange> <text>0.1-1.0</text> & lt;/observationRange> </referenceRange> </ observation> </component> <component> < observation moodCode="EVN" classCode="OBS"> < templateId root="2.16.840.1.191770.10.20.22.4.2" /> < id nullFlavor="NA" /> <code codeSystem="local&quot ; code="MO%" displayName="MONOCYTE %" />& lt;statusCode code="completed" /> <effectiveTime value= "844320026503" /> <value unit="%" xsi :type="PQ" value="9"/> <interpretationCode codeSystem="local" code="*" /><referenceRange> <observationRange> <text>4-6</text> </observationRange> </referenceRange> </ observation> </component> <component> < observation moodCode="EVN" classCode="OBS"> < templateId root="2.16.840.1.986471.10.20.22.4.2" /> <id nullFlavor="NA" /> <code codeSystem="local" code="RBC" displayName="RED BLOOD CELL" /> < statusCode code="completed" /> <effectiveTime value=& quot;450866665810" /> <value unit="m/cumm" xsi: type="PQ" value="3.31" /> < interpretationCode codeSystem="local" code="*" /> <referenceRange><observationRange> <text>4.00- 6.00</text> </observationRange> </ referenceRange> </observation> </component> < component> <observation moodCode="EVN" classCode=" OBS"> <templateId root="2.16.840.1.752386.10.20.22.4.2" /& gt; <id nullFlavor="NA" /> <code codeSystem ="local" code="RDW" displayName="RED CELL DISTRIBUTION WIDTH" /> <statusCode code="completed" /> <effectiveTime value="798433717401" /> <value unit="%" xsi:type="PQ" value="16.9" /> <interpretationCode codeSystem="local" code="*&quot ; /> <referenceRange> <observationRange> <text>11.0-15.6</text> </observationRange&gt ; </referenceRange> </observation> </component& gt; <component> <observation moodCode="EVN" classCode="OBS"> <templateId root=" 2.16.840.1.703215.10.20.22.4.2" /> <id nullFlavor="NA& quot;/> <code codeSystem="local" code="WBC" displayName="WHITE BLOOD CELL" /> <statusCode code=& quot;completed" /> <effectiveTime value="735809073116& quot; /> <value unit="k/cumm" xsi:type="PQ" value="11.3" /> <interpretationCode codeSystem=" local" code="*" /> <referenceRange> <observationRange><text>5.0-10.0</text> </ observationRange> </referenceRange> </observation&gt ; </component> <component> <observationmoodCode= "EVN" classCode="OBS"> <templateId root=&quot ;2.16.840.1.709281.10.20.22.4.2" /> <id nullFlavor="NA& quot; /> <code codeSystem="local" code="HGBT&quot ; displayName="HEMOGLOBIN" /> <statusCode code=" completed" /> <effectiveTime value="382850047617" /> <value unit="gm/dL" xsi:type="PQ" value=& quot;9.2" /> <interpretationCode codeSystem="local&quot ; code="*" /> <referenceRange> < observationRange> <text>12.0-16.0</text> </observationRange> </referenceRange> </ observation> </component> <component> < observation moodCode="EVN" classCode="OBS"> < templateId root="2.16.840.1.406268.10.20.22.4.2" /> <id nullFlavor="NA" /> <code codeSystem="local" code="HCTT" displayName="HEMATOCRIT" /> < statusCode code="completed" /> <effectiveTime value=& quot;065482071526" /> <value unit="%" xsi: type="PQ" value="30.6" /> < interpretationCode codeSystem="local" code="*" /> <referenceRange> <observationRange> <text>37.0 -47.0</text> </observationRange> </ referenceRange> </observation> </component> < component> <observation moodCode="EVN" classCode=" OBS"> <templateId root="2.16.840.1.687258.10.20.22.4.2" / > <id nullFlavor="NA" /> <code codeSystem="local" code="PLTT" displayName="PLATELET COUNT" /> <statusCode code="completed" /> <effectiveTime value="984911581528" /> <value unit="k/cumm" xsi:type="PQ" value="333" /> <referenceRange> <observationRange> & lt;text>150-450</text> </observationRange> </ referenceRange> </observation> </component> </ organizer> </entry> <entry> <organizer moodCode="EVN " classCode="BATTERY"> <templateId root=" 2.16.840.1.523352.10.20.22.4.1" /> <id nullFlavor="NA&quot ; /> <code codeSystem="local" code="METAB" displayName="METABOLIC PANEL, BASIC" /> <statusCode code=& quot;completed" /> <component> <observation moodCode="EVN" classCode="OBS"> <templateId root=& quot;2.16.840.1.588478.10.20.22.4.2" /> <id nullFlavor=&quot ;NA" /> <code codeSystem="local" code="K&quot ; displayName="POTASSIUM" /> <statusCode code=" completed" /> <effectiveTime value="246207899463" /> <value unit="mmol/L" xsi:type="PQ" value=& quot;4.6" /> <referenceRange> < observationRange> <text>3.5-5.3</text> & lt;/observationRange> </referenceRange> </ observation> </component> <component> <observation moodCode="EVN" classCode="OBS"> <templateId root="2.16.840.1.749414.10.20.22.4.2" /> <id nullFlavor ="NA" /> <code codeSystem="local" code="eGFR& quot; displayName="EST GFR (MDRD)" /> <statusCode code= "completed" /> <effectiveTime value="[id number]& quot; /> <value unit="mL/min" xsi:type="PQ" value="40" /> <interpretationCode codeSystem=" local" code="*" /> <referenceRange> <observationRange> <text>> 59</text> </observationRange> </referenceRange></ observation> </component> <component> < observation moodCode="EVN" classCode="OBS"> < templateId root="[id number]" /> < id nullFlavor="NA" /> <code codeSystem="local&quot ; code="GAP" displayName="ANION GAP" /> < statusCodecode="completed" /> <effectiveTime value=& quot;[id number]" /> <value unit="mmol/L" xsi:type=& quot;PQ" value="9" /> <referenceRange> <observationRange> <text>5-15</text> </observationRange> </referenceRange> </ observation></component> <component> <observation moodCode="EVN" classCode="OBS"> <templateId root="2.16.840.1.847752.10.20.22.4.2" /> <id nullFlavor=& quot;NA" /> <code codeSystem="local" code=" eCrCl" displayName="EST CrCl (CG)" /> <statusCode code="completed" /> <effectiveTime value=" 192043932942" /> <value unit="mL/min" xsi:type=& quot;PQ" value="56" /> <interpretationCode codeSystem="local" code="*" /> < referenceRange> <observationRange> <text> > 59</text> </observationRange> </ referenceRange> </observation> </component> < component> <observation moodCode="EVN" classCode=" OBS"> <templateId root="2.16.840.1.600997.10.20.22.4.2" /& gt; <id nullFlavor="NA" /> <code codeSystem ="local" code="GLU" displayName="GLUCOSE" /> <statusCode code="completed" /> < effectiveTime value="569089576154" /> <value unit=&quot ;mg/dL" xsi:type="PQ" value="110" /> < interpretationCode codeSystem="local" code="*" /> <referenceRange> <observationRange><text>70-99& lt;/text> </observationRange> </referenceRange& gt; </observation> </component> <component> <observation moodCode="EVN" classCode="OBS"> <templateId root="2.16.840.1.935805.10.20.22.4.2" /> <id nullFlavor="NA" /> <code codeSystem=" local" code="CA" displayName="CALCIUM" /> & lt;statusCode code="completed" /> <effectiveTime value= "197007142905" /> <value unit="mg/dL" xsi:type ="PQ" value="8.9" /> <referenceRange> & lt;observationRange> <text>8.5-10.1</text> </observationRange> </referenceRange> </ observation> </component> <component> < observation moodCode="EVN" classCode="OBS"> < templateId root="2.16.840.1.183869.10.20.22.4.2" /> < id nullFlavor="NA" /> <code codeSystem="local&quot ; code="BUN" displayName="BLOOD UREA NITROGEN" /> <statusCode code="completed" /> <effectiveTime value="258118178576" /> <value unit="mg/dL" xsi:type="PQ" value="53" /> < interpretationCode codeSystem="local" code="*" /> <referenceRange> <observationRange> <text >7-20</text> </observationRange> </ referenceRange> </observation> </component> < component> <observation moodCode="EVN" classCode=" OBS"> <templateId root="2.16.840.1.781919.10.20.22.4.2&quot ; /> <id nullFlavor="NA" /> <code codeSystem="local" code="CREAT" displayName="CREATININE " /> <statusCode code="completed" /> & lt;effectiveTime value="073029389471" /> <value unit=& quot;mg/dL" xsi:type="PQ" value="1.3" /> & lt;interpretationCode codeSystem="local" code="*" /> <referenceRange> <observationRange> < text>0.6-1.0</text> </observationRange> </ referenceRange> </observation> </component> < component> <observation moodCode="EVN" classCode=" OBS"> <templateId root="2.16.840.1.429970.10.20.22.4.2& quot; /> <id nullFlavor="NA" /> <code codeSystem="local" code="NA" displayName="SODIUM" /><statusCode code="completed" /> <effectiveTime value="601032293585" /> <value unit="mmol/L" xsi:type="PQ" value="144" /> <referenceRange& gt; <observationRange> <text>135-148</ text> </observationRange> </referenceRange> </observation> </component> <component> <observation moodCode="EVN" classCode="OBS"> <templateId root="2.16.840.1.690265.10.20.22.4.2" /> <id nullFlavor="NA" /> <code codeSystem=" local" code="CL" displayName="CHLORIDE" /> <statusCode code="completed" /> <effectiveTime value ="837310601706" /> <value unit="mmol/L" xsi: type="PQ" value="108" /> <referenceRange> <observationRange> <text>98-110</text&gt ; </observationRange> </referenceRange> </ observation> </component> <component> < observation moodCode="EVN" classCode="OBS"> < templateId root="2.16.840.1.575384.10.20.22.4.2" /> <id nullFlavor="NA" /> <code codeSystem="local" code="CO2" displayName="CARBON DIOXIDE" /> < statusCode code="completed" /> <effectiveTime value=& quot;108289651921" /> <value unit="mmol/L" xsi: type="PQ" value="27" /> <referenceRange> <observationRange> <text>21-32</text> </observationRange> </referenceRange> </ observation> </component> </organizer> </entry> & lt;entry> <organizer moodCode="EVN" classCode="BATTERY& quot;> <templateId root="2.16.840.1.176036.10.20.22.4.1" /& gt; <id nullFlavor="NA" /> <code codeSystem="local " code="CBCD" displayName="CBC W/DIFF" /> < statusCode code="completed" /> <component> < observation moodCode="EVN" classCode="OBS"> < templateId root="2.16.840.1.713789.10.20.22.4.2" /> < id nullFlavor="NA" /> <code codeSystem="local&quot ; code="CBCCOM" displayName="COMMENT" /> < statusCode code="completed" /> <effectiveTime value=& quot;445507022405" /> <value unit="" xsi:type=& quot;PQ" value="REVIEWED" /> <referenceRange> <observationRange> <text /> </ observationRange> </referenceRange> </observation&gt ; </component> <component> <observation moodCode ="EVN" classCode="OBS"> <templateId root=& quot;2.16.840.1.721272.10.20.22.4.2" /> <id nullFlavor=&quot ;NA" /> <code codeSystem="local" code="EO#& quot; displayName="EOSINOPHIL #" /> <statusCode code=" completed" /> <effectiveTime value="550381611393" /> <value unit="k/cumm" xsi:type="PQ" value=& quot;0.1" /> <referenceRange> < observationRange> <text>0.1-0.5</text> & lt;/observationRange> </referenceRange> </ observation> </component> <component> < observation moodCode="EVN" classCode="OBS"> < templateId root="2.16.840.1.366722.10.20.22.4.2" /> < id nullFlavor="NA" /> <code codeSystem="local&quot ; code="EO%" displayName="EOSINOPHIL %" /&gt ; <statusCode code="completed" /> <effectiveTime value="962159097611" /> <value unit="%& quot; xsi:type="PQ" value="1" /> < interpretationCode codeSystem="local" code="*" /> < referenceRange> <observationRange> <text> 2-4</text> </observationRange> </ referenceRange> </observation> </component> < component> <observation moodCode="EVN" classCode=" OBS"> <templateId root="2.16.840.1.387988.10.20.22.4.2& quot; /> <id nullFlavor="NA" /> <code codeSystem="local" code="GR#" displayName="GRANULOCYTE #" /> <statusCode code="completed" /> <effectiveTime value="609416339745" /> <value unit=& quot;k/cumm" xsi:type="PQ" value="8.4" /> & lt;referenceRange> <observationRange> <text& gt;2.0-9.0</text> </observationRange> </ referenceRange> </observation> </component> < component> <observation moodCode="EVN" classCode=" OBS"> <templateId root="2.16.840.1.800092.10.20.22.4.2& quot; /> <id nullFlavor="NA" /> <code codeSystem="local" code="GR%" displayName=" GRANULOCYTE %" /> <statusCode code="completed& quot; /> <effectiveTime value="604028679406" /> <value unit="%" xsi:type="PQ" value=" 75" /> <referenceRange> <observationRange& gt; <text>50-75</text> </observationRange > </referenceRange> </observation> </ component> <component> <observation moodCode="EVN& quot; classCode="OBS"> <templateId root=" 2.16.840.1.043349.10.20.22.4.2" /> <id nullFlavor="NA& quot; /> <code codeSystem="local" code="LY#" displayName="LYMPHOCYTE #" /> <statusCode code=" completed" /> <effectiveTime value="820134499999" /> <value unit="k/cumm" xsi:type="PQ" value=" 1.7" /> <referenceRange> <observationRange& gt; <text>1.0-4.0</text> </ observationRange> </referenceRange> </observation&gt ; </component> <component> <observation moodCode ="EVN" classCode="OBS"> <templateId root=& quot;2.16.840.1.297819.10.20.22.4.2" /> <id nullFlavor=&quot ;NA" /> <code codeSystem="local" code="LY&amp ;#37;" displayName="LYMPHOCYTE %" /> < statusCode code="completed" /> <effectiveTime value=" 573426229940" /> <value unit="%" xsi:type= "PQ" value="15" /> <interpretationCode codeSystem="local" code="*" /> < referenceRange> <observationRange> <text> 20-30</text> </observationRange> </ referenceRange> </observation> </component> < component> <observation moodCode="EVN" classCode=" OBS"> <templateId root="2.16.840.1.772471.10.20.22.4.2& quot; /> <id nullFlavor="NA" /> <code codeSystem="local" code="MCH" displayName="MEAN CELL HGB" /> <statusCode code="completed" /> <effectiveTime value="201697083495" /> <value unit="pg" xsi:type="PQ" value="27.8" /> <referenceRange> <observationRange> < text>27.0-33.0</text> </observationRange> &lt ;/referenceRange> </observation> </component> &lt ;component> <observation moodCode="EVN" classCode=" OBS"> <templateId root="2.16.840.1.070142.10.20.22.4.2& quot; /> <id nullFlavor="NA" /> <code codeSystem="local" code="MCHC" displayName="MEAN CELL HGB CONCENTRATION" /> <statusCode code="completed&quot ; /> <effectiveTime value="916287937525" /> <value unit="g/dL" xsi:type="PQ" value="30.1&quot ; /> <interpretationCode codeSystem="local" code=" *" /> <referenceRange> <observationRange&gt ; <text>32.0-37.0</text> </ observationRange> </referenceRange> </observation&gt ; </component> <component> <observation moodCode ="EVN" classCode="OBS"> <templateId root=& quot;2.16.840.1.553240.10.20.22.4.2" /> <id nullFlavor=&quot ;NA" /> <code codeSystem="local" code="MCV& quot; displayName="MEAN CELL VOLUME" /> <statusCode code="completed" /> <effectiveTime value=" 865477556000" /> <value unit="fl" xsi:type="PQ&quot ; value="92.4" /> <referenceRange> < observationRange> <text>80.0-100.0</text> </observationRange> </referenceRange> </ observation> </component> <component> < observation moodCode="EVN" classCode="OBS"> < templateId root="2.16.840.1.401332.10.20.22.4.2" /> <id nullFlavor="NA" /> <code codeSystem="local" code="MO#" displayName="MONOCYTE #" /> < statusCode code="completed" /> <effectiveTime value=& quot;121429870188" /> <value unit="k/cumm" xsi: type="PQ" value="1.0" /> <referenceRange> <observationRange> <text>0.1-1.0</text&gt ; </observationRange> </referenceRange> & lt;/observation> </component> <component> < observation moodCode="EVN" classCode="OBS"> < templateId root="2.16.840.1.463888.10.20.22.4.2" /> < id nullFlavor="NA" /> <code codeSystem="local&quot ; code="MO%" displayName="MONOCYTE %" /> <statusCode code="completed" /> < effectiveTime value="019133198157" /> <value unit=&quot ;%" xsi:type="PQ" value="9" /> < interpretationCode codeSystem="local" code="*" /> <referenceRange> <observationRange> < text>4-6</text> </observationRange> </ referenceRange> </observation> </component> < component> <observation moodCode="EVN" classCode=" OBS"> <templateId root="2.16.840.1.685482.10.20.22.4.2& quot; /> <id nullFlavor="NA" /> <code codeSystem="local" code="RBC" displayName="RED BLOODCELL" /> <statusCode code="completed" /> <effectiveTimevalue="882702863609" /> < value unit="m/cumm" xsi:type="PQ" value="3.31" /& gt; <interpretationCode codeSystem="local" code="*& quot; /> <referenceRange> <observationRange> <text>4.00-6.00</text> </ observationRange> </referenceRange> </observation&gt ; </component> <component> <observation moodCode ="EVN" classCode="OBS"> <templateId root=& quot;2.16.840.1.172960.10.20.22.4.2" /> <id nullFlavor=&quot ;NA" /> <code codeSystem="local" code="RDW& quot; displayName="RED CELL DISTRIBUTION WIDTH" /> < statusCode code="completed" /> <effectiveTime value=& quot;216849807348" /> <value unit="%" xsi: type="PQ" value="16.9" /> < interpretationCode codeSystem="local" code="*" /> <referenceRange> <observationRange> < text>11.0-15.6</text> </observationRange> &lt ;/referenceRange> </observation> </component> & lt;component> <observation moodCode="EVN" classCode=&quot ;OBS"> <templateId root="2.16.840.1.756501.10.20.22.4.2 " /> <id nullFlavor="NA" /> <code codeSystem="local" code="WBC" displayName="WHITE BLOOD CELL" /> <statusCode code="completed" /> <effectiveTime value="054013806019" /> <value unit ="k/cumm" xsi:type="PQ" value="11.3" /> < interpretationCode codeSystem="local" code="*" /> <referenceRange> <observationRange> < text>5.0-10.0</text> </observationRange> </ referenceRange> </observation> </component> < component> <observation moodCode="EVN" classCode=" OBS"> <templateId root="2.16.840.1.617357.10.20.22.4.2& quot; /><id nullFlavor="NA" /> <code codeSystem=& quot;local" code="HGBT" displayName="HEMOGLOBIN" /> <statusCode code="completed" /> < effectiveTime value="903683364337" /> <value unit=&quot ;gm/dL" xsi:type="PQ" value="9.2" /> < interpretationCode codeSystem="local" code="*" /> <referenceRange> <observationRange> < text>12.0-16.0</text> </observationRange> </ referenceRange> </observation> </component> < component> <observation moodCode="EVN" classCode=" OBS"> <templateId root="2.16.840.1.259464.10.20.22.4.2& quot; /> <id nullFlavor="NA"/> <code codeSystem="local" code="HCTT" displayName="HEMATOCRIT& quot; /> <statusCode code="completed" /> & lt;effectiveTime value="509526887626" /> <value unit=& quot;%" xsi:type="PQ" value="30.6" /> <interpretationCode codeSystem="local" code="*" /&gt ; <referenceRange> <observationRange> <text>37.0-47.0</text> </observationRange> </referenceRange> </observation> </component&gt ; <component> <observation moodCode="EVN" classCode="OBS"> <templateId root=" 2.16.840.1.173678.10.20.22.4.2" /> <id nullFlavor="NA& quot; /> <code codeSystem="local" code="PLTT&quot ; displayName="PLATELET COUNT" /><statusCode code=" completed" /> <effectiveTime value="768261540499" /> <value unit="k/cumm" xsi:type="PQ" value=& quot;333" /> <referenceRange> < observationRange> <text>150-450</text> & lt;/observationRange> </referenceRange> </ observation> </component> </organizer> </entry> & lt;entry> <organizer moodCode="EVN" classCode="BATTERY& quot;> <templateId root="2.16.840.1.425592.10.20.22.4.1" /& gt; <id nullFlavor="NA" /> <code codeSystem=" local" code="METAB" displayName="METABOLIC PANEL, BASIC&quot ; /> <statusCode code="completed" /> <component& gt; <observation moodCode="EVN" classCode="OBS"&gt ; <templateId root="2.16.840.1.910134.10.20.22.4.2" /> <id nullFlavor="NA" /> <code codeSystem=& quot;local" code="K" displayName="POTASSIUM" /> <statusCode code="completed" /> < effectiveTime value="790908667414" /> <value unit=&quot ;mmol/L" xsi:type="PQ" value="4.6" /> < referenceRange> <observationRange> <text> 3.5-5.3</text> </observationRange> </ referenceRange> </observation> </component> < component> <observation moodCode="EVN" classCode=" OBS"> <templateId root="2.16.840.1.622143.10.20.22.4.2& quot; /> <id nullFlavor="NA" /> <code codeSystem="local" code="eGFR" displayName="EST GFR ( MDRD)" /> <statusCode code="completed" /> <effectiveTime value="568732915945" /> <value unit="mL/min" xsi:type="PQ" value="40" /> <interpretationCode codeSystem="local" code="*" /&gt ; <referenceRange> <observationRange> <text>> 59</text> </observationRange> </referenceRange> </observation> </component> <component> <observation moodCode="EVN" classCode="OBS"> <templateId root=" 2.16.840.1.454933.10.20.22.4.2" /> <id nullFlavor="NA& quot; /> <code codeSystem="local" code="GAP" displayName="ANION GAP" /> <statusCode code=" completed" /> <effectiveTime value="794267050684" /> <value unit="mmol/L" xsi:type="PQ" value="9& quot; /> <referenceRange> <observationRange> <text>5-15</text> </observationRange&gt ; </referenceRange> </observation> </component> <component> <observation moodCode="EVN" classCode="OBS"> <templateId root=" 2.16.840.1.682791.10.20.22.4.2" /> <id nullFlavor="NA& quot; /> <code codeSystem="local" code="eCrCl&quot ; displayName="EST CrCl (CG)" /> <statusCode code=&quot ;completed" /> <effectiveTime value="402461771251&quot ; /> <value unit="mL/min" xsi:type="PQ" value ="56" /> <interpretationCode codeSystem="local& quot; code="*" /> <referenceRange> < observationRange> <text>> 59</text> </observationRange> </referenceRange> </ observation> </component> <component> < observation moodCode="EVN" classCode="OBS"> < templateId root="2.16.840.1.990615.10.20.22.4.2" /> < id nullFlavor="NA" /> <code codeSystem="local&quot ; code="GLU" displayName="GLUCOSE" /> < statusCode code="completed" /> <effectiveTime value=& quot;171316776914" /> <value unit="mg/dL" xsi:type ="PQ" value="110" /> <interpretationCode codeSystem= "local" code="*" /> <referenceRange> <observationRange> <text>70-99</text> < /observationRange> </referenceRange> </observation& gt; </component> <component> <observation moodCode="EVN" classCode="OBS"> <templateId root="2.16.840.1.957434.10.20.22.4.2" /> <id nullFlavor ="NA" /> <code codeSystem="local" code=" CA" displayName="CALCIUM" /> <statusCode code=& quot;completed" /> <effectiveTime value="011527060687" /> <value unit="mg/dL" xsi:type="PQ" value=& quot;8.9" /> <referenceRange> < observationRange> <text>8.5-10.1</text> & lt;/observationRange> </referenceRange> </ observation> </component> <component> < observation moodCode="EVN" classCode="OBS"> < templateId root="2.16.840.1.259375.10.20.22.4.2" /> < id nullFlavor="NA" /> <code codeSystem="local&quot ; code="BUN" displayName="BLOOD UREA NITROGEN" /> <statusCode code="completed" /> <effectiveTime value="020267115753" /> <value unit="mg/dL" xsi:type="PQ" value="53" /> < interpretationCode codeSystem="local" code="*" /> <referenceRange> <observationRange> <text>7 -20</text> </observationRange> </ referenceRange> </observation> </component> < component> <observation moodCode="EVN" classCode=" OBS"> <templateId root="2.16.840.1.654867.10.20.22.4.2& quot; /> <id nullFlavor="NA" /> <code codeSystem="local" code="CREAT" displayName="CREATININE " /><statusCode code="completed" /> < effectiveTime value="510060324221" /> <value unit=&quot ;mg/dL" xsi:type="PQ" value="1.3" /> < interpretationCode codeSystem="local" code="*" /> <referenceRange> <observationRange> < text>0.6-1.0</text> </observationRange> </ referenceRange> </observation> </component> < component> <observation moodCode="EVN" classCode=" OBS"> <templateId root="2.16.840.1.229837.10.20.22.4.2& quot; /> <id nullFlavor="NA" /> <code codeSystem="local" code="NA" displayName="SODIUM" /> <statusCode code="completed" /> < effectiveTime value="642913474938" /> <value unit=&quot ;mmol/L" xsi:type="PQ" value="144" /> < referenceRange> <observationRange> <text>135- 148</text> </observationRange> </ referenceRange> </observation> </component> < component> <observation moodCode="EVN" classCode=" OBS"> <templateId root="2.16.840.1.754837.10.20.22.4.2& quot; /> <id nullFlavor="NA" /> <code codeSystem="local" code="CL" displayName="CHLORIDE&quot ; /> <statusCode code="completed" /> < effectiveTime value="077064515559" /> <value unit=&quot ;mmol/L" xsi:type="PQ" value="108" /> < referenceRange> <observationRange> <text> 98-110</text> </observationRange> </ referenceRange> </observation> </component> < component> <observation moodCode="EVN" classCode="OBS& quot;> <templateId root="2.16.840.1.743179.10.20.22.4.2&quot ; /> <id nullFlavor="NA" /> <code codeSystem="local" code="CO2" displayName="CARBON DIOXIDE" /> <statusCode code="completed" /> <effectiveTime value="839915917032" /> < value unit="mmol/L" xsi:type="PQ" value="27" /&gt ; <referenceRange> <observationRange> < text>21-32</text> </observationRange> </ referenceRange> </observation> </component> </ organizer> </entry> <entry> <organizer moodCode="EVN " classCode="BATTERY"> <templateId root=" 2.16.840.1.983541.10.20.22.4.1" /> <id nullFlavor="NA&quot ; /> <code codeSystem="local" code="GHGLUMON" displayName="GLUCOSE (POC)" /> <statusCode code=" completed" /> <component> <observation moodCode=& quot;EVN" classCode="OBS"> <templateId root=" 2.16.840.1.920815.10.20.22.4.2" /> <id nullFlavor="NA& quot; /> <code codeSystem="local" code="GHGLUMON& quot; displayName="GLUCOSE (POC)" /> <statusCode code=& quot;completed" /> <effectiveTime value="146583669071& quot; /> <value unit="mg/dL" xsi:type="PQ" value="111" /> <interpretationCode codeSystem=" local" code="*" /> <referenceRange> <observationRange> <text>70-99</text> </observationRange> </referenceRange> </ observation> </component> </organizer> </entry> & lt;entry> <organizer moodCode="EVN" classCode="BATTERY& quot;> <templateId root="2.16.840.1.220901.10.20.22.4.1" /& gt; <id nullFlavor="NA" /> <code codeSystem=" local" code="GHGLUMON" displayName="GLUCOSE (POC)" /&gt ; <statusCode code="completed" /> <component> <observation moodCode="EVN" classCode="OBS"> <templateId root="2.16.840.1.813873.10.20.22.4.2" /> <id nullFlavor="NA" /> <code codeSystem=" local" code="GHGLUMON" displayName="GLUCOSE (POC)" /&gt ; <statusCode code="completed" /> < effectiveTime value="292073892458" /> <value unit=&quot ;mg/dL" xsi:type="PQ" value="111" /> < interpretationCode codeSystem="local" code="*" /> <referenceRange> <observationRange> < text>70-99</text> </observationRange> </ referenceRange> </observation> </component> </ organizer> </entry> <entry> <organizer moodCode="EVN " classCode="BATTERY"> <templateId root=" 2.16.840.1.634414.10.20.22.4.1" /> <id nullFlavor="NA&quot ; /> <code codeSystem="local" code="GHGLUMON" displayName="GLUCOSE (POC)" /> <statusCode code=" completed" /> <component> <observation moodCode=& quot;EVN" classCode="OBS"> <templateId root=" 216.840.1.258934.10.20.22.4.2" /> <id nullFlavor="NA& quot; /> <code codeSystem="local" code="GHGLUMON& quot; displayName="GLUCOSE (POC)" /> <statusCode code=& quot;completed" /> <effectiveTime value="604661257097& quot; /> <value unit="mg/dL" xsi:type="PQ" value="147" /> <interpretationCode codeSystem=" local" code="*" /> <referenceRange> < observationRange> <text>70-99</text> < /observationRange> </referenceRange> </observation& gt; </component> </organizer> </entry> <entry&gt ; <organizer moodCode="EVN" classCode="BATTERY"> <templateId root="2.16.840.1.821616.10.20.22.4.1" /> & lt;id nullFlavor="NA" /> <code codeSystem="local&quot ; code="GHGLUMON" displayName="GLUCOSE (POC)" /> &lt ;statusCode code="completed" /> <component> < observation moodCode="EVN" classCode="OBS"> < templateId root="2.16.840.1.446465.10.20.22.4.2" /> < id nullFlavor="NA" /> <code codeSystem="local&quot ; code="GHGLUMON" displayName="GLUCOSE (POC)" /> <statusCode code="completed" /> <effectiveTime value ="970948626665" /> <value unit="mg/dL" xsi: type="PQ" value="147" /> <interpretationCode codeSystem="local" code="*" /> < referenceRange> <observationRange> <text> 70-99</text> </observationRange> </ referenceRange> </observation> </component> </ organizer> </entry> <entry> <organizer moodCode="EVN " classCode="BATTERY"> <templateId root=" 2.16.840.1.127480.10.20.22.4.1" /> <id nullFlavor="NA&quot ; /> <code codeSystem="local" code="LBGM" displayName="L900.0530" /> <statusCode code="completed " /> <component> <observation moodCode="EVN" classCode="OBS"> <templateId root=" 2.16.840.1.553936.10.20.22.4.2" /> <id nullFlavor="NA& quot; /> <code codeSystem="local" code="850.0100&quot ; displayName="Glucometer" /> <statusCode code=" completed" /> <effectiveTime value="060609755994" /> <value unit="mg/dL" xsi:type="PQ" value=& quot;103" /> <referenceRange> < observationRange> <text>65-110</text> </ observationRange> </referenceRange> </observation&gt ; </component> </organizer> </entry> <entry> <organizer moodCode="EVN" classCode="BATTERY"> <templateId root="2.16.840.1.339068.10.20.22.4.1" /> < id nullFlavor="NA" /> <code codeSystem="local" code="LBGM" displayName="L900.0530" /> < statusCode code="completed" /> <component> < observation moodCode="EVN" classCode="OBS"> < templateId root="2.16.840.1.473338.10.20.22.4.2" /> < id nullFlavor="NA" /> <codecodeSystem="local&quot ; code="850.0100" displayName="Glucometer" /> < statusCode code="completed" /> <effectiveTime value=& quot;094446095874" /> <value unit="mg/dL" xsi:type ="PQ" value="160" /> <referenceRange> <observationRange> <text>65-110</text> </observationRange> </referenceRange> < /observation> </component> </organizer> </entry> <entry> <organizer moodCode="EVN" classCode="BATTERY& quot;> <templateId root="2.16.840.1.764328.10.20.22.4.1" /& gt; <id nullFlavor="NA" /> <code codeSystem=" local" code="LBGM" displayName="L900.0530" /> & lt;statusCode code="completed" /> <component> &lt ;observation moodCode="EVN" classCode="OBS"> &lt ;templateId root="[id number]" /> < id nullFlavor="NA" /> <code codeSystem="local&quot ; code="850.0100" displayName="Glucometer" /> & lt;statusCode code="completed" /> <effectiveTime value= "[id number]" /> <value unit="mg/dL" xsi:type= "PQ" value="103" /> <referenceRange> &lt ;observationRange> <text>65-110</text> & lt;/observationRange> </referenceRange> </ observation> </component> </organizer> </entry> & lt;entry> <organizer moodCode="EVN" classCode="BATTERY& quot;> <templateId root="2.16.840.1.392677.10.20.22.4.1" /& gt; <id nullFlavor="NA" /> <code codeSystem=" local" code="LCBC" displayName="L100.0050" /> & lt;statusCode code="completed" /> <component> &lt ;observation moodCode="EVN" classCode="OBS"> &lt ;templateId root="2.16.840.1.117618.10.20.22.4.2" /> < id nullFlavor="NA" /> <code codeSystem="local&quot ; code="100.0150" displayName="WBC - WHITE BLOOD COUNT" /&gt ; <statusCodecode="completed" /> < effectiveTime value="789007679231" /> <value unit="T/ MM3" xsi:type="PQ" value="11.3" /> < interpretationCode codeSystem="local" code="*" /> <referenceRange> <observationRange> < text>4.5-11.0</text></observationRange> </ referenceRange> </observation> </component> < component> <observation moodCode="EVN" classCode=" OBS"> <templateId root="2.16.840.1.974256.10..22.4.2& quot; /> <id nullFlavor="NA" /> <code codeSystem="local" code="100.0250" displayName="RED BLOOD COUNT" /> <statusCode code="completed" /&gt ; <effectiveTime value="985786263695" /> < value unit="M/MM3" xsi:type="PQ" value="3.45" /&gt ; <interpretationCode codeSystem="local" code="*&quot ; /> <referenceRange> <observationRange> <text>4.00-5.20</text> </observationRange&gt ; </referenceRange> </observation> </ component> <component> <observation moodCode="EVN& quot; classCode="OBS"> <templateId root=" 2.16.840.1.993171.10..22.4.2" /> <id nullFlavor="NA& quot; /> <code codeSystem="local" code="100.0300& quot; displayName="HGB - HEMOGLOBIN" /> <statusCode code="completed" /> <effectiveTime value=" 409508781306" /> <value unit="GM/DL" xsi:type=& quot;PQ" value="9.5" /> <interpretationCode codeSystem="local" code="*" /> < referenceRange> <observationRange> <text>12-16 </text> </observationRange> </referenceRange& gt; </observation> </component> <component> <observation moodCode="EVN" classCode="OBS"> <templateId root="2.16.840.1.402075.10.20.22.4.2" /> <id nullFlavor="NA" /> <code codeSystem=&quot ;local" code="100.0400" displayName="HCT - HEMATOCRIT" /> <statusCode code="completed" /> < effectiveTime value="044427822185" /> <value unit=&quot ;%" xsi:type="PQ" value="32.6" /> & lt;interpretationCode codeSystem="local" code="*" /> <referenceRange> <observationRange> & lt;text>36-46</text> </observationRange> < /referenceRange> </observation> </component> &lt ;component> <observation moodCode="EVN" classCode=" OBS"> <templateId root="2.16.840.1.664945.10..22.4.2& quot; /> <id nullFlavor="NA" /> <code codeSystem="local" code="100.0550" displayName="MEAN CORPUSCULAR VOLUME" /> <statusCode code="completed&quot ; /> <effectiveTime value="095218984983" /> <value unit="UM3" xsi:type="PQ" value="94.5" /> <referenceRange> <observationRange> <text>80-100</text> </observationRange> </referenceRange> </observation> </component& gt; <component> <observation moodCode="EVN" classCode="OBS"> <templateId root=" 2.16.840.1.829089.10.20.22.4.2" /> <id nullFlavor="NA& quot; /> <code codeSystem="local" code="100.0600& quot; displayName="MEAN CORPUSCULAR HGB" /> < statusCode code="completed" /> <effectiveTime value=& quot;949020708801" /> <value unit="UUG" xsi:type=& quot;PQ" value="27.5" /> <referenceRange> & lt;observationRange> <text>26-34</text> & lt;/observationRange> </referenceRange> </ observation> </component> <component> < observation moodCode="EVN" classCode="OBS"> < templateId root="2.16.840.1.346280.10.20.22.4.2" /> < id nullFlavor="NA" /> <code codeSystem="local&quot ; code="100.0650" displayName="MEAN CORPUSCULAR HGB CONC([facility]& quot; /> <statusCode code="completed" /> & lt;effectiveTime value="754752583898" /> <value unit=& quot;GM/DL" xsi:type="PQ" value="29.1" /> < interpretationCode codeSystem="local" code="*" /> <referenceRange> <observationRange> < text>31-37</text> </observationRange> </ referenceRange> </observation> </component> < component> <observation moodCode="EVN" classCode=" OBS"> <templateId root="2.16.840.1.721020.10..22.4.2& quot; /> <id nullFlavor="NA" /> <code codeSystem="local" code="100.0750" displayName="RDW STANDARD DEVIATION" /> <statusCode code="completed&quot ; /> <effectiveTime value="593989297183" /> <value unit="FL" xsi:type="PQ" value="54.1" / > <interpretationCode codeSystem="local" code="*& quot; /> <referenceRange> <observationRange> <text>36.9-50.2</text> </observationRange> </referenceRange> </observation> </component&gt ; <component> <observation moodCode="EVN" classCode="OBS"> <templateId root=" 2.16.840.1.631278.10.20.22.4.2" /> <id nullFlavor="NA& quot; /> <code codeSystem="local" code="100.0850& quot; displayName="PLT - PLATELET COUNT" /> < statusCode code="completed" /> <effectiveTime value=" 380574481359" /> <value unit="T/MM3" xsi:type=& quot;PQ" value="362" /> <referenceRange> <observationRange> <text>130-400</text> </observationRange> </referenceRange> </ observation> </component> <component> < observation moodCode="EVN" classCode="OBS"> < templateId root="2.16.840.1.704065.10.20.22.4.2" /> < id nullFlavor="NA" /> <code codeSystem="local&quot ; code="100.0950" displayName="MEAN PLATELET VOLUME" /> <statusCode code="completed" /> <effectiveTime value ="022983889144" /> <value unit="UM3" xsi:type ="PQ" value="9.0" /> <interpretationCode codeSystem="local" code="*" /> < referenceRange> <observationRange> <text> 9.4-12.4</text> </observationRange> </ referenceRange> </observation> </component> < component> <observation moodCode="EVN" classCode=" OBS"> <templateId root="2.16.840.1.366387.10.20.22.4.2& quot; /> <id nullFlavor="NA" /><code codeSystem=& quot;local" code="100.1050" displayName="NEUTROPHILS &# 37; (AUTO)" /> <statusCode code="completed" /> <effectiveTime value="617360641352" /> < value unit="%" xsi:type="PQ" value="70.7" /> <interpretationCode codeSystem="local"code="*& quot; /> <referenceRange> <observationRange> <text>33-66</text> </observationRange> </referenceRange> </observation> </component> <component> <observation moodCode="EVN" classCode ="OBS"> <templateId root=" 2.16.840.1.157387.10.20.22.4.2" /> <id nullFlavor="NA& quot; /> <code codeSystem="local" code="100.1100& quot; displayName="LYMPHOCYTES % (AUTO)" /> < statusCode code="completed" /> <effectiveTime value=& quot;921788778724" /> <value unit="%" xsi: type="PQ" value="17.9" /> < interpretationCode codeSystem="local" code="*" /> <referenceRange> <observationRange> < text>23-45</text> </observationRange> </ referenceRange> </observation> </component> < component> <observation moodCode="EVN" classCode=" OBS"> <templateId root="2.16.840.1.992755.10.20.22.4.2& quot; /> <id nullFlavor="NA" /> <code codeSystem="local" code="100.1150" displayName=" MONOCYTES % (AUTO)" /> <statusCode code=" completed" /> <effectiveTime value="245609600040" /> <value unit="%" xsi:type="PQ" value="8.2" /> <referenceRange> < observationRange> <text>0-9.0</text> < /observationRange> </referenceRange> </observation> </component> <component> <observation moodCode=& quot;EVN" classCode="OBS"> <templateId root=" 2.16.840.1.920586.10.20.22.4.2" /> <id nullFlavor="NA& quot; /> <code codeSystem="local" code="100.1200& quot; displayName="EOSINOPHILS % (AUTO)" /> < statusCode code="completed" /> <effectiveTime value=& quot;460705081445" /> <value unit="%" xsi: type="PQ" value="1.4" /> <referenceRange> <observationRange> <text>0-4</text> &lt ;/observationRange> </referenceRange> </observation&gt ; </component> <component> <observation moodCode ="EVN" classCode="OBS"> <templateId root=& quot;216.840.1.217140.10.20.22.4.2" /> <id nullFlavor=&quot ;NA" /> <code codeSystem="local" code=" 100.1250" displayName="BASOPHILS % (AUTO)" /> <statusCode code="completed" /> <effectiveTime value="176063252194" /> <value unit="%& quot; xsi:type="PQ" value="0.3" /> < referenceRange> <observationRange> <text>0-2</text& gt; </observationRange> </referenceRange> & lt;/observation> </component> <component> < observation moodCode="EVN" classCode="OBS"> < templateId root="2.16.840.1.655511.10.20.22.4.2" /> < id nullFlavor="NA" /> <code codeSystem="local&quot ; code="100.1275" displayName="IMMATURE GRANULOCYTE % ( AUTO)" /> <statusCode code="completed" /> <effectiveTime value="353247013740" /> <value unit="%" xsi:type="PQ" value="1.5" /> <interpretationCode codeSystem="local" code="*" /> <referenceRange> <observationRange> <text>0.0-0.5</text> </observationRange> </referenceRange> </observation> </component&gt ; <component> <observation moodCode="EVN" classCode="OBS"> <templateId root=" 2.16.840.1.591838.10.20.22.4.2" /> <id nullFlavor="NA& quot; /> <code codeSystem="local" code="100.1300& quot; displayName="NEUTROPHILS # (AUTO)" /> <statusCode code="completed" /> <effectiveTime value=" 647193813237" /> <value unit="T/MM3" xsi:type=& quot;PQ" value="8.0" /> <interpretationCode codeSystem="local" code="*" /> <referenceRange&gt ; <observationRange> <text>1.8-7.7</text& gt; </observationRange> </referenceRange> </observation> </component> <component> &lt ;observation moodCode="EVN"classCode="OBS"> < templateId root="2.16.840.1.295289.10.20.22.4.2" /> < id nullFlavor="NA" /> <code codeSystem="local&quot ; code="100.1350" displayName="LYMPHOCYTES # (AUTO)" /> <statusCode code="completed" /> < effectiveTime value="622724222540" /> <value unit="T/ MM3" xsi:type="PQ" value="2.0" /> < referenceRange> <observationRange> <text> 1-4.8</text> </observationRange> </ referenceRange> </observation> </component> < component> <observation moodCode="EVN" classCode=" OBS"> <templateId root="2.16.840.1.318094.10.20.22.4.2& quot; /> <id nullFlavor="NA" /> <code codeSystem="local" code="100.1400" displayName=" MONOCYTES # (AUTO)" /> <statusCode code="completed&quot ; /> <effectiveTime value="859046744759" /> <value unit="T/MM3" xsi:type="PQ" value="0.9&quot ; /> <interpretationCode codeSystem="local" code=" *" /> <referenceRange> <observationRange> <text>0-0.8</text> </observationRange> </referenceRange> </observation> </ component> <component> <observation moodCode="EVN&quot ; classCode="OBS"> <templateId root=" 2.16.840.1.048176.10.20.22.4.2" /> <id nullFlavor="NA& quot; /> <code codeSystem="local" code="100.1450& quot; displayName="EOSINOPHILS # (AUTO)" /> < statusCode code="completed" /> <effectiveTime value=& quot;159483470591" /> <value unit="T/MM3" xsi:type ="PQ" value="0.2" /> <referenceRange>< observationRange> <text>0-0.5</text> < /observationRange> </referenceRange> </observation& gt; </component> <component> <observation moodCode="EVN" classCode="OBS"> <templateId root="2.16.840.1.617407.10.20.22.4.2" /> <id nullFlavor ="NA" /> <code codeSystem="local" code=" 100.1500" displayName="BASOPHILS # (AUTO)" /> < statusCode code="completed" /><effectiveTime value=" 295407145594" /> <value unit="T/MM3" xsi:type=& quot;PQ" value="0.0" /> <referenceRange> <observationRange> <text>0-0.2</text> </observationRange> </referenceRange> </ observation> </component> <component> < observation moodCode="EVN" classCode="OBS"> < templateId root="2.16.840.1.785996.10.20.22.4.2" /> < id nullFlavor="NA" /> <code codeSystem="local&quot ; code="100.1525" displayName="IMMATURE GRANULOCYTE # (AUTO)&quot ; /> <statusCode code="completed" /> < effectiveTime value="076437953840" /> <value unit=&quot ;T/MM3" xsi:type="PQ" value="0.17" /> < interpretationCode codeSystem="local" code="*" /> <referenceRange> <observationRange> < text>0.00-0.03</text> </observationRange> &lt ;/referenceRange> </observation> </component> < /organizer> </entry> <entry> <organizer moodCode=" EVN" classCode="BATTERY"> <templateId root=" 2.16.840.1.336217.10.20.22.4.1" /> <id nullFlavor="NA&quot ; /> <code codeSystem="local" code="LBMP" displayName="L200.0050" /> <statusCode code="completed " /> <component> <observation moodCode="EVN" classCode="OBS"> <templateId root=" 2.16.840.1.277811.10.20.22.4.2" /> <id nullFlavor="NA& quot; /> <code codeSystem="local" code="300.0400" displayName="FUNGAL CULTURE." /> <statusCode code=&quot ;completed" /> <effectiveTime value="943733771144&quot ; /> <value unit="MG/DL" xsi:type="PQ" value= "1.2" /> <referenceRange> < observationRange> <text>0.7-1.2</text> </ observationRange> </referenceRange> </observation&gt ; </component> <component> <observation moodCode ="EVN" classCode="OBS"> <templateId root=& quot;2.16.840.1.349150.10.20.22.4.2" /> <id nullFlavor=&quot ;NA" /> <code codeSystem="local" code=" 300.0450" displayName="FUNGAL CULTURE, BLOOD." /> &lt ;statusCode code="completed" /> <effectiveTime value=& quot;377240500802" /> <value unit="RATIO" xsi:type ="PQ" value="38" /> <interpretationCode codeSystem="local" code="*" /> < referenceRange> <observationRange> <text> 6-26</text> </observationRange> </ referenceRange> </observation> </component> < component> <observation moodCode="EVN" classCode=" OBS"> <templateId root="2.16.840.1.208769.10.20.22.4.2& quot; /> <id nullFlavor="NA" /> <code codeSystem="local" code="300.0100" displayName="NA - Sodium" /> <statusCodecode="completed" /> <effectiveTime value="608086462605" /> <value unit=& quot;MEQ/L" xsi:type="PQ" value="146" /> & lt;interpretationCode codeSystem="local" code="*" /> <referenceRange> <observationRange> & lt;text>134-144</text> </observationRange> & lt;/referenceRange> </observation> </component> <component> <observation moodCode="EVN" classCode=& quot;OBS"> <templateId root=" 2.16.840.1.503341.10.20.22.4.2" /> <id nullFlavor="NA& quot; /> <code codeSystem="local" code="300.0150& quot; displayName="Potassium" /> <statusCode code=&quot ;completed" /> <effectiveTime value="303052727231&quot ; /> <value unit="MEQ/L" xsi:type="PQ" value= "4.8" /> <referenceRange><observationRange> <text>3.6-5</text> </observationRange> </referenceRange> </observation> </ component> <component> <observation moodCode="EVN& quot; classCode="OBS"> <templateId root=" 2.16.840.1.772089.10.20.22.4.2" /> <id nullFlavor="NA& quot; /> <code codeSystem="local" code="300.0200& quot; displayName="Chloride" /> <statusCode code=" completed" /> <effectiveTime value="541875405422" /> <value unit="MEQ/L" xsi:type="PQ" value=& quot;108" /> <interpretationCode codeSystem="local&quot ; code="*" /> <referenceRange> < observationRange> <text>98-107</text> </ observationRange> </referenceRange> </observation&gt ; </component> <component> <observation moodCode ="EVN" classCode="OBS"> <templateId root=& quot;2.16.840.1.770947.10.20.22.4.2" /> <id nullFlavor=&quot ;NA" /> <code codeSystem="local" code=" 300.0250" displayName="CO2 - Carbon Dioxide" /> < statusCode code="completed" /> <effectiveTime value=& quot;083546666304" /> <value unit="MEQ/L" xsi:type ="PQ" value="31" /> <interpretationCode codeSystem="local" code="*" /> <referenceRange > <observationRange> <text>22-30</text > </observationRange> </referenceRange> </observation> </component> <component> & lt;observation moodCode="EVN" classCode="OBS"> & lt;templateId root="2.16.840.1.579524.10.20.22.4.2" /> &lt ;id nullFlavor="NA" /> <code codeSystem="local& quot; code="300.0300" displayName="Anion Gap" /> <statusCode code="completed" /> <effectiveTime value="486268303100" /> <value unit="MEQ/L" xsi:type="PQ" value="7" /> <referenceRange&gt ; <observationRange> <text>5-15</text> </observationRange> </referenceRange> </ observation> </component> <component> < observation moodCode="EVN" classCode="OBS"> < templateId root="2.16.840.1.267991.10.20.22.4.2" /> < id nullFlavor="NA" /> <code codeSystem="local&quot ; code="300.0350" displayName="BUN - Blood Urea Nitrogen" /& gt; <statusCode code="completed" /> < effectiveTime value="319390443135" /> <value unit=&quot ;MG/DL" xsi:type="PQ" value="45.0" /> < interpretationCode codeSystem="local" code="*" /> <referenceRange> <observationRange> <text>7 -17</text> </observationRange> </ referenceRange> </observation> </component> < component> <observation moodCode="EVN" classCode=" OBS"> <templateId root="2.16.840.1.620709.10.20.22.4.2" /& gt; <id nullFlavor="NA" /> <code codeSystem ="local" code="300.0410" displayName="Glomerular Filtration Rate" /> <statusCode code="completed" / > <effectiveTime value="529969553891" /> & lt;value unit="" xsi:type="PQ" value="44" /> <referenceRange> <observationRange> <text>NRG</text> </observationRange> </ referenceRange> </observation> </component> < component> <observation moodCode="EVN" classCode=" OBS"> <templateId root="2.16.840.1.540036.10.20.22.4.2& quot; /> <id nullFlavor="NA" /> <code codeSystem="local" code="300.0500" displayName="Glucose " /> <statusCode code="completed" /> & lt;effectiveTimevalue="963799137362" /> <value unit=& quot;MG/DL" xsi:type="PQ" value="119" /> & lt;interpretationCode codeSystem="local" code="*" /> <referenceRange> <observationRange> & lt;text>65-110</text> </observationRange> &lt ;/referenceRange> </observation> </component> < component> <observation moodCode="EVN" classCode=" OBS"> <templateId root="2.16.840.1.893772.10.20.22.4.2& quot; /> <id nullFlavor="NA" /> <code codeSystem="local" code="300.2000" displayName=" Osmolality,Calculated" /> <statusCode code="completed" /> <effectiveTime value="614901905369" /> & lt;value unit="MOSM/KG" xsi:type="PQ" value="294" /> <interpretationCode codeSystem="local" code="*& quot; /> <referenceRange> <observationRange> <text>261-280</text> </observationRange> </referenceRange> </observation> </component > <component> <observation moodCode="EVN" classCode="OBS"> <templateId root=" 2.16.840.1.144949.10.20.22.4.2" /> <id nullFlavor="NA& quot; /> <code codeSystem="local" code="300.2200& quot; displayName="Calcium" /> <statusCode code=" completed" /> <effectiveTime value="919934530272" /> <value unit="MG/DL" xsi:type="PQ" value=& quot;9.6" /> <referenceRange> < observationRange> <text>8.4-10.2</text> </ observationRange> </referenceRange> </observation&gt ; </component> <component> <observation moodCode ="EVN" classCode="OBS"> <templateId root=& quot;2.16.840.1.667214.10.20.22.4.2" /> <id nullFlavor=&quot ;NA" /> <code codeSystem="local" code=" 300.0095" displayName="LICTERUS" /> <statusCode code="completed" /> <effectiveTime value=" 805916554947" /> <value unit="" xsi:type="PQ& quot; value="< 2" /> <referenceRange> &lt ;observationRange> <text>0-7</text> </ observationRange> </referenceRange> </observation&gt ; </component> <component> <observation moodCode ="EVN" classCode="OBS"> <templateId root=" 2.16.840.1.974370.10.20.22.4.2" /> <id nullFlavor="NA& quot; /> <code codeSystem="local" code="300.0096& quot; displayName="LHEMOLYSIS" /> <statusCode code=& quot;completed" /> <effectiveTime value="609145614680& quot; /> <value unit="" xsi:type="PQ" value=& quot;< 15" /> <referenceRange> < observationRange> <text>0-25</text> </ observationRange> </referenceRange> </observation> & lt;/component> <component> <observation moodCode="EVN " classCode="OBS"> <templateIdroot=" 2.16.840.1.122255.10.20.22.4.2" /> <id nullFlavor="NA& quot; /> <code codeSystem="local" code="300.0097& quot; displayName="LTURBIDITY" /> <statusCode code=& quot;completed" /> <effectiveTime value="796976786097& quot; /> <value unit="" xsi:type="PQ" value=& quot;< 20" /> <referenceRange> < observationRange> <text>0-20</text> </ observationRange> </referenceRange> </observation&gt ; </component> </organizer> </entry> <entry> <organizer moodCode="EVN" classCode="BATTERY"> <templateId root="2.16.840.1.883433.10.20.22.4.1" /> < id nullFlavor="NA" /> <code codeSystem="local" code="LBGM" displayName="L900.0530" /> < statusCode code="completed" /> <component> < observation moodCode="EVN" classCode="OBS"> < templateId root="2.16.840.1.009639.10.20.22.4.2" /> < id nullFlavor="NA" /> <code codeSystem="local&quot ; code="850.0100" displayName="Glucometer" /> < statusCode code="completed" /> <effectiveTime value=& quot;663686311779" /> <value unit="mg/dL" xsi:type ="PQ" value="175" /> <referenceRange> <observationRange> <text>65-110</text> </observationRange> </referenceRange></ observation> </component> </organizer> </entry> & lt;entry><organizer moodCode="EVN" classCode="BATTERY" > <templateId root="2.16.840.1.431383.10.20.22.4.1" /> <id nullFlavor="NA" /> <code codeSystem="local " code="LBGM" displayName="L900.0530" /> < statusCode code="completed" /> <component> < observation moodCode="EVN" classCode="OBS"> < templateId root="2.16.840.1.119276.10.20.22.4.2" /> < id nullFlavor="NA" /> <code codeSystem="local&quot ; code="850.0100" displayName="Glucometer" /> & lt;statusCode code="completed" /> <effectiveTime value= "534275971887" /> <value unit="mg/dL" xsi: type="PQ" value="118" /> <referenceRange> <observationRange> <text>65-110</text> </observationRange> </referenceRange> </ observation> </component> </organizer> </entry> & lt;entry> <organizer moodCode="EVN" classCode="BATTERY& quot;> <templateId root="2.16.840.1.741381.10.20.22.4.1" /& gt; <id nullFlavor="NA" /> <code codeSystem=" local" code="LBGM" displayName="L900.0530" /> & lt;statusCode code="completed" /> <component> &lt ;observation moodCode="EVN"classCode="OBS"> < templateId root="2.16.840.1.925902.10.20.22.4.2" /> < id nullFlavor="NA" /> <code codeSystem="local&quot ; code="850.0100" displayName="Glucometer" /> & lt;statusCode code="completed" /> <effectiveTime value= "977811438810" /> <value unit="mg/dL" xsi: type="PQ" value="121" /> <referenceRange> <observationRange> <text>65-110</text&gt ; </observationRange> </referenceRange> </ observation> </component> </organizer> </entry> & lt;entry> <organizer moodCode="EVN" classCode="BATTERY& quot;> <templateId root="2.16.840.1.902481.10.20.22.4.1" /& gt; <id nullFlavor="NA" /> <code codeSystem=" local"code="LBGM" displayName="L900.0530" /> & lt;statusCode code="completed" /> <component> &lt ;observation moodCode="EVN" classCode="OBS"> &lt ;templateId root="2.16.840.1.401772.10.20.22.4.2" /><id nullFlavor="NA" /> <code codeSystem="local" code="850.0100" displayName="Glucometer" /> < statusCode code="completed" /> <effectiveTime value=& quot;125357444596" /> <value unit="mg/dL" xsi:type ="PQ" value="210" /> <referenceRange> <observationRange> <text>65-110</text> </observationRange> </referenceRange> </ observation> </component></organizer> </entry> < entry> <organizer moodCode="EVN" classCode="BATTERY&quot ;> <templateId root="2.16.840.1.056981.10.20.22.4.1" /> <id nullFlavor="NA" /> <code codeSystem="local& quot; code="LCBC" displayName="L100.0050" /> < statusCode code="completed" /> <component> < observation moodCode="EVN" classCode="OBS"> < templateId root="2.16.840.1.570700.10.20.22.4.2" /> < id nullFlavor="NA" /> <code codeSystem="local&quot ; code="100.0150" displayName="WBC - WHITE BLOOD COUNT" /&gt ; <statusCode code="completed" /> < effectiveTime value="089524229611" /> <value unit=&quot ;T/MM3" xsi:type="PQ" value="12.2" /> < interpretationCode codeSystem="local" code="*" /> <referenceRange> <observationRange> < text>4.5-11.0</text> </observationRange> </ referenceRange> </observation> </component> < component> <observation moodCode="EVN" classCode=" OBS"> <templateId root="2.16.840.1.782349.10.20.22.4.2& quot; /> <id nullFlavor="NA" /> <code codeSystem="local" code="100.0250" displayName="RED BLOOD COUNT" /> <statusCode code="completed" /&gt ; <effectiveTime value="810753143153" /> < value unit="M/MM3" xsi:type="PQ" value="3.34" /&gt ; <interpretationCode codeSystem="local" code="*&quot ; /> <referenceRange> <observationRange> & lt;text>4.00-5.20</text> </observationRange> </referenceRange> </observation> </component> <component> <observation moodCode="EVN" classCode=& quot;OBS"> <templateId root=" 2.16.[id number]" /> <id nullFlavor="NA& quot; /> <code codeSystem="local" code="100.0300& quot; displayName="HGB - HEMOGLOBIN" /> <statusCode code="completed" /> <effectiveTime value=" [id number]" /> <value unit="GM/DL" xsi:type=& quot;PQ" value="9.3" /> <interpretationCode codeSystem="local" code="*" /> < referenceRange> <observationRange> <text> 12-16</text> </observationRange> </ referenceRange> </observation> </component> < component> <observation moodCode="EVN" classCode=" OBS"> <templateId root="[id number]& quot; /> <id nullFlavor="NA" /> <code codeSystem="local" code="100.0400" displayName="HCT - HEMATOCRIT" /> <statusCodecode="completed" /> <effectiveTime value="890920262004" /> <value unit="%" xsi:type="PQ" value="31.8" /> <interpretationCode codeSystem="local" code="*" /> <referenceRange> <observationRange> <text>36-46</text> </observationRange> </ referenceRange> </observation> </component> < component> <observation moodCode="EVN" classCode=" OBS"> <templateId root="2.16.840.1.249258.10.20.22.4.2& quot; /> <id nullFlavor="NA" /> <code codeSystem="local" code="100.0550" displayName="MEAN CORPUSCULAR VOLUME" /> <statusCode code="completed&quot ; /> <effectiveTime value="216861875323" /> <valueunit="UM3" xsi:type="PQ" value="95.2" / > <referenceRange> <observationRange> <text>80-100</text> </observationRange> </referenceRange> </observation> </component&gt ; <component> <observation moodCode="EVN" classCode="OBS"> <templateId root=" 2.16.840.1.232982.10.20.22.4.2" /> <id nullFlavor="NA& quot; /> <code codeSystem="local" code="100.0600& quot; displayName="MEAN CORPUSCULAR HGB" /> < statusCode code="completed" /> <effectiveTime value=& quot;295770755447" /> <value unit="UUG" xsi:type=& quot;PQ" value="27.8" /> <referenceRange> <observationRange> <text>26-34</text> </observationRange> </referenceRange> </ observation> </component> <component> < observation moodCode="EVN" classCode="OBS"> < templateId root="2..840.1.716875.10.20.22.4.2" /> < id nullFlavor="NA" /> <code codeSystem="local&quot ; code="100.0650" displayName="MEAN CORPUSCULAR HGB CONC([facility]& quot; /> <statusCode code="completed" /> & lt;effectiveTime value="546296141555" /> <value unit=& quot;GM/DL" xsi:type="PQ" value="29.2" /> & lt;interpretationCodecodeSystem="local" code="*" /> <referenceRange> <observationRange> &lt ;text>31-37</text> </observationRange> </ referenceRange> </observation> </component> < component> <observation moodCode="EVN" classCode=" OBS"> <templateId root="2.16.840.1.536842.10..22.4.2& quot; /> <id nullFlavor="NA" /> <code codeSystem="local" code="100.0750" displayName="RDW STANDARD DEVIATION" /> <statusCode code="completed&quot ; /><effectiveTime value="689537874377" /> < value unit="FL" xsi:type="PQ" value="54.3" /> <interpretationCode codeSystem="local" code="*" /> <referenceRange> <observationRange> <text>36.9-50.2</text> </observationRange> </referenceRange> </observation> </component& gt; <component> <observation moodCode="EVN" classCode="OBS"> <templateId root=" 2.16.840.1.357749.10.20.22.4.2" /> <id nullFlavor="NA& quot; /><code codeSystem="local" code="100.0850" displayName="PLT - PLATELET COUNT" /> <statusCode code= "completed" /> <effectiveTime value="152397763233& quot; /> <value unit="T/MM3" xsi:type="PQ" value="357" /> <referenceRange> < observationRange> <text>130-400</text> </ observationRange> </referenceRange> </observation&gt ; </component> <component> <observation moodCode ="EVN" classCode="OBS"> <templateId root=& quot;2.16.840.1.565762.10.20.22.4.2" /> <id nullFlavor=&quot ;NA" /> <code codeSystem="local" code=" 100.0950" displayName="MEAN PLATELET VOLUME" /> < statusCode code="completed" /> <effectiveTime value=& quot;948779776383" /> <value unit="UM3" xsi:type=& quot;PQ" value="9.2" /> <interpretationCode codeSystem="local" code="*" /> < referenceRange> <observationRange> <text> 9.4-12.4</text> </observationRange> </ referenceRange> </observation> </component> < component> <observation moodCode="EVN" classCode=" OBS"> <templateId root="2.16.840.1.684923.10.20.22.4.2& quot; /> <id nullFlavor="NA" /> <code codeSystem="local" code="100.1050" displayName=" NEUTROPHILS % (AUTO)" /> <statusCode code="completed& quot; /> <effectiveTime value="471802728593" /> <value unit="%" xsi:type="PQ" value=" 81.9" /> <interpretationCode codeSystem="local" code="*" /> <referenceRange> < observationRange> <text>33-66</text> < /observationRange> </referenceRange> </observation& gt; </component> <component> <observation moodCode="EVN" classCode="OBS"> <templateId root="2.16.840.1.611946.10.20.22.4.2"/> <id nullFlavor= "NA" /> <code codeSystem="local"code=" 100.1100" displayName="LYMPHOCYTES % (AUTO)" /> <statusCode code="completed" /> <effectiveTime value="851737819385" /> <value unit="%& quot; xsi:type="PQ" value="10.5" /> < interpretationCode codeSystem="local" code="*" /> <referenceRange> <observationRange> < text>23-45</text> </observationRange> </ referenceRange> </observation></component> < component> <observation moodCode="EVN" classCode=" OBS"> <templateId root="2.16.840.1.459525.10.20.22.4.2& quot; /> <id nullFlavor="NA" /> <code codeSystem="local" code="100.1150" displayName=" MONOCYTES % (AUTO)" /> <statusCode code=" completed" /> <effectiveTime value="350136280118" /> <value unit="%" xsi:type="PQ" value=" 6.3" /> <referenceRange> <observationRange& gt; <text>0-9.0</text> </observationRange& gt; </referenceRange> </observation> </component > <component> <observation moodCode="EVN" classCode="OBS"> <templateId root=" 2.16.840.1.798738.10.20.22.4.2" /> <id nullFlavor="NA&quot ; /> <code codeSystem="local" code="100.1200&quot ; displayName="EOSINOPHILS % (AUTO)" /> < statusCodecode="completed" /> <effectiveTime value=& quot;991828059858" /> <value unit="%" xsi:type= "PQ" value="0.2" /> <referenceRange> & lt;observationRange> <text>0-4</text> &lt ;/observationRange> </referenceRange> </observation& gt; </component> <component> <observation moodCode ="EVN" classCode="OBS"> <templateId root=& quot;2.16.840.1.220355.10.20.22.4.2" /> <id nullFlavor=" NA" /> <code codeSystem="local" code=" 100.1250" displayName="BASOPHILS % (AUTO)" /> <statusCodecode="completed" /> <effectiveTime value="959906369553" /> <value unit="%" xsi:type="PQ" value="0.2" /> <referenceRange> <observationRange> <text>0-2</text> </observationRange> </referenceRange> </ observation> </component> <component> < observation moodCode="EVN" classCode="OBS"> < templateId root="2.16.840.1.389723.10.20.22.4.2" /> <id nullFlavor="NA" /> <code codeSystem="local" code="100.1275" displayName="IMMATURE GRANULOCYTE % (AUTO )" /> <statusCode code="completed" /> <effectiveTime value="201734644183" /> <value unit=& quot;%" xsi:type="PQ" value="0.9" /> <interpretationCode codeSystem="local" code="*" /> <referenceRange> <observationRange> <text>0.0-0.5</text> </observationRange> </referenceRange> </observation> </component> <component> <observation moodCode="EVN" classCode=& quot;OBS"> <templateId root=" 2.16.840.1.269030.10.20.22.4.2" /> <id nullFlavor="NA& quot; /> <code codeSystem="local" code="100.1300& quot; displayName="NEUTROPHILS # (AUTO)" /> < statusCode code="completed" /> <effectiveTime value=& quot;516193244532" /> <value unit="T/MM3" xsi:type ="PQ" value="10.0" /> <interpretationCode codeSystem="local" code="*" /> < referenceRange> <observationRange> <text> 1.8-7.7</text> </observationRange> </ referenceRange> </observation> </component> < component> <observation moodCode="EVN" classCode=" OBS"> <templateId root="2.16.840.1.941559.10.20.22.4.2& quot; /> <id nullFlavor="NA" /> <code codeSystem="local" code="100.1350"displayName=" LYMPHOCYTES # (AUTO)" /> <statusCode code="completed& quot; /> <effectiveTime value="128902679726" /> <value unit="T/MM3" xsi:type="PQ" value="1.3& quot; /> <referenceRange> <observationRange> <text>1-4.8</text> </observationRange> </referenceRange> </observation> </component&gt ;<component> <observation moodCode="EVN" classCode=& quot;OBS"> <templateId root="2.16.840.1.469668.10.20.22.4.2& quot; /> <id nullFlavor="NA" /> <code codeSystem="local" code="100.1400" displayName=" MONOCYTES # (AUTO)" /> <statusCode code="completed&quot ; /> <effectiveTime value="994444605035" /> &lt ;value unit="T/MM3" xsi:type="PQ" value="0.8" /&gt ; <referenceRange> <observationRange> <text>0-0.8</text> </observationRange> </referenceRange> </observation> </component> <component> <observation moodCode="EVN" classCode= "OBS"> <templateId root=" 2.16.840.1.624437.10.20.22.4.2" /> <id nullFlavor="NA& quot; /> <code codeSystem="local" code="100.1450& quot; displayName="EOSINOPHILS # (AUTO)" /> < statusCode code="completed" /> <effectiveTime value=& quot;014419805600" /> <value unit="T/MM3" xsi:type ="PQ" value="0.0" /> <referenceRange> <observationRange> <text>0-0.5</text> </observationRange> </referenceRange> </ observation> </component> <component> < observation moodCode="EVN" classCode="OBS"> < templateId root="2.16.840.1.245175.10.20.22.4.2" /> < id nullFlavor="NA" /> <code codeSystem="local&quot ; code="100.1500" displayName="BASOPHILS # (AUTO)" /> <statusCode code="completed" /> < effectiveTime value="091371200515" /> <value unit=&quot ;T/MM3" xsi:type="PQ" value="0.0" /> < referenceRange> <observationRange> <text> 0-0.2</text> </observationRange> </ referenceRange> </observation> </component> < component> <observation moodCode="EVN" classCode=" OBS"> <templateId root="2.16.840.1.881879.10.20.22.4.2& quot; /> <id nullFlavor="NA" /> <code codeSystem= "local" code="100.1525" displayName="IMMATURE GRANULOCYTE # (AUTO)" /> <statusCode code="completed& quot; /> <effectiveTime value="075746832373" /> <value unit="T/MM3" xsi:type="PQ" value="0.11& quot; /> <interpretationCode codeSystem="local" code=& quot;*" /> <referenceRange> < observationRange> <text>0.00-0.03</text> </ observationRange> </referenceRange> </observation&gt ; </component> </organizer> </entry> <entry> <organizer moodCode="EVN" classCode="BATTERY"> <templateId root="2.16.840.1.473392.10.20.22.4.1" /> < id nullFlavor="NA" /> <code codeSystem="local" code="LBMP" displayName="L200.0050" /> < statusCode code="completed" /> <component> < observation moodCode="EVN" classCode="OBS"> < templateId root="2.16.840.1.503047.10.20.22.4.2" /> < id nullFlavor="NA" /> <code codeSystem="local&quot ; code="300.0400" displayName="FUNGAL CULTURE." /> <statusCode code="completed" /> <effectiveTime value="695287230656" /> <value unit="MG/DL" xsi:type="PQ" value="1.2" /> <referenceRange& gt; <observationRange> <text>0.7-1.2</ text> </observationRange> </referenceRange> </observation> </component> <component> & lt;observation moodCode="EVN" classCode="OBS"> & lt;templateId root="2.16.840.1.970205.10.20.22.4.2" /> &lt ;id nullFlavor="NA" /> <code codeSystem="local& quot; code="300.0450" displayName="FUNGAL CULTURE, BLOOD." / > <statusCode code="completed" /> < effectiveTime value="730089989414" /> <value unit=&quot ;RATIO" xsi:type="PQ" value="41" /> < interpretationCode codeSystem="local" code="*" /> < referenceRange> <observationRange> <text> 6-26</text> </observationRange> </ referenceRange> </observation> </component> < component> <observation moodCode="EVN" classCode=" OBS"> <templateId root="2.16.840.1.312976.10.20.22.4.2& quot; /> <id nullFlavor="NA" /> <code codeSystem="local" code="300.0100" displayName="NA - Sodium" /> <statusCode code="completed" /> <effectiveTime value="163217311103" /> <value unit="MEQ/L" xsi:type="PQ" value="143" /> <referenceRange> <observationRange> &lt ;text>134-144</text> </observationRange> </ referenceRange> </observation> </component> < component> <observation moodCode="EVN" classCode=" OBS"> <templateId root="2.16.840.1.781896.10.20.22.4.2& quot; /> <id nullFlavor="NA" /> <code codeSystem="local" code="300.0150" displayName=" Potassium" /> <statusCode code="completed" /> <effectiveTime value="853046096899" /> < value unit="MEQ/L" xsi:type="PQ" value="5.1" /&gt ; <interpretationCode codeSystem="local" code="*&quot ; /> <referenceRange> <observationRange> <text>3.6-5</text> </observationRange> & lt;/referenceRange> </observation> </component> <component> <observation moodCode="EVN" classCode=&quot ;OBS"> <templateId root="2.16.840.1.194694.10..22.4.2 " /> <id nullFlavor="NA" /> <code codeSystem="local" code="300.0200" displayName=" Chloride" /> <statusCode code="completed" /> <effectiveTime value="409315750978" /> < value unit="MEQ/L" xsi:type="PQ" value="108" /&gt ; <interpretationCode codeSystem="local" code="*&quot ; /> <referenceRange> <observationRange> <text>98-107</text> </observationRange> </referenceRange> </observation> </component > <component> <observation moodCode="EVN" classCode="OBS"> <templateId root=" 2.16.840.1.020650.10.20.22.4.2" /> <id nullFlavor="NA& quot; /> <code codeSystem="local" code="300.0250& quot; displayName="CO2 - Carbon Dioxide" /><statusCode code=& quot;completed" /> <effectiveTime value="650696220718& quot; /> <value unit="MEQ/L" xsi:type="PQ" value="29" /> <referenceRange> < observationRange> <text>22-30</text> < /observationRange> </referenceRange> </observation& gt; </component> <component> <observation moodCode="EVN" classCode="OBS"> <templateId root="2.16.840.1.955100.10.20.22.4.2" /> <id nullFlavor ="NA" /> <code codeSystem="local" code=" 300.0300" displayName="Anion Gap" /> <statusCode code="completed" /> <effectiveTime value=" 534534050596" /><value unit="MEQ/L" xsi:type="PQ&quot ; value="6" /> <referenceRange> < observationRange> <text>5-15</text> </ observationRange> </referenceRange> </observation&gt ; </component> <component> <observation moodCode ="EVN" classCode="OBS"> <templateId root=& quot;2.16.840.1.516243.10.20.22.4.2" /> <id nullFlavor=&quot ;NA" /> <code codeSystem="local" code=" 300.0350" displayName="BUN - Blood Urea Nitrogen" /> <statusCode code="completed" /> <effectiveTime value ="015644417302" /> <value unit="MG/DL" xsi: type="PQ" value="49.0" /> < interpretationCode codeSystem="local" code="*" /> <referenceRange> <observationRange> <text& gt;7-17</text> </observationRange> </ referenceRange> </observation> </component>< component> <observation moodCode="EVN" classCode=" OBS"> <templateId root="2.16.840.1.982993.10.20.22.4.2" /> <id nullFlavor="NA" /> <code codeSystem="local" code="300.0410" displayName=" Glomerular Filtration Rate" /> <statusCode code=" completed" /> <effectiveTime value="994476173565" /> <value unit="" xsi:type="PQ" value=" 44" /> <referenceRange> <observationRange& gt; <text>NRG</text> </observationRange& gt; </referenceRange> </observation> </ component> <component> <observation moodCode="EVN& quot; classCode="OBS"> <templateId root=" 2.16.840.1.553964.10.20.22.4.2" /> <id nullFlavor="NA& quot; /> <code codeSystem="local" code="300.0500& quot; displayName="Glucose" /> <statusCode code=" completed" /> <effectiveTime value="466673244555" /> <value unit="MG/DL" xsi:type="PQ" value=& quot;105" /> <referenceRange> < observationRange> <text>65-110</text> < /observationRange> </referenceRange> </observation& gt; </component> <component> <observation moodCode="EVN" classCode="OBS"> <templateId root="2.16.840.1.958989.10.20.22.4.2" /> <id nullFlavor ="NA" /> <code codeSystem="local" code=" 300.2000" displayName="Osmolality,Calculated" /> < statusCode code="completed" /> <effectiveTime value=& quot;597287551037" /> <value unit="MOSM/KG" xsi: type="PQ" value="288" /> <interpretationCode codeSystem="local" code="*" /> < referenceRange> <observationRange> <text> 261-280</text> </observationRange> </ referenceRange> </observation> </component> < component> <observation moodCode="EVN" classCode=" OBS"> <templateId root="2.16.840.1.435011.10.20.22.4.2& quot; /> <id nullFlavor="NA" /> <code codeSystem="local" code="300.2200" displayName="Calcium " /> <statusCode code="completed" /> & lt;effectiveTime value="012682266514" /> <value unit=& quot;MG/DL" xsi:type="PQ" value="9.6" /> < referenceRange> <observationRange> <text> 8.4-10.2</text> </observationRange> </ referenceRange> </observation> </component> < component> <observation moodCode="EVN"classCode="OBS "> <templateId root="2.16.840.1.005958.10.20.22.4.2& quot; /> <id nullFlavor="NA" /> <code codeSystem="local" code="300.0095" displayName=" LICTERUS" /> <statusCode code="completed" /> <effectiveTime value="499295165584" /> < value unit="" xsi:type="PQ" value="< 2" /& gt; <referenceRange> <observationRange> <text>0-7</text></observationRange> </ referenceRange> </observation> </component> < component> <observation moodCode="EVN" classCode=" OBS"> <templateId root="2.16.840.1.902192.10.20.22.4.2& quot; /> <id nullFlavor="NA" /> <code codeSystem="local" code="300.0096" displayName=" LHEMOLYSIS" /> <statusCode code="completed" /> <effectiveTime value="459682150574" /> < value unit="" xsi:type="PQ" value="< 15" /& gt; <referenceRange> <observationRange> & lt;text>0-25</text> </observationRange> </ referenceRange> </observation> </component> < component> <observation moodCode="EVN" classCode=" OBS"> <templateId root="2.16.840.1.746701.10.20.22.4.2" / > <id nullFlavor="NA" /> <code codeSystem="local" code="300.0097" displayName=" LTURBIDITY" /> <statusCode code="completed" /> <effectiveTime value="822691582312" /> < value unit="" xsi:type="PQ" value="< 20" /& gt; <referenceRange> <observationRange> <text>0-20</text> </observationRange> </ referenceRange> </observation> </component> </ organizer> </entry> <entry> <organizer moodCode="EVN& quot; classCode="BATTERY"> <templateId root=" 2.16.840.1.220058.10.20.22.4.1" /> <id nullFlavor="NA&quot ; /> <code codeSystem="local" code="LBGM" displayName="L900.0530" /> <statusCode code="completed " /> <component> <observation moodCode="EVN& quot; classCode="OBS"> <templateId root=" 2.16.840.1.230372.10.20.22.4.2" /> <id nullFlavor="NA& quot; /> <code codeSystem="local" code="850.0100& quot; displayName="Glucometer" /> <statusCode code=& quot;completed" /> <effectiveTimevalue="146241267816& quot; /> <value unit="mg/dL" xsi:type="PQ" value="102" /> <referenceRange> < observationRange> <text>65-110</text> </ observationRange> </referenceRange> </observation&gt ; </component> </organizer> </entry> <entry> <organizer moodCode="EVN" classCode="BATTERY"> <templateId root="2.16.840.1.653125.10.20.22.4.1" /> < id nullFlavor="NA" /> <code codeSystem="local" code="LBGM" displayName="L900.0530" /> < statusCode code="completed" /> <component> < observation moodCode="EVN" classCode="OBS"> < templateId root="2.16.840.1.269452.10.20.22.4.2" /> < id nullFlavor="NA" /> <code codeSystem="local&quot ; code="850.0100" displayName="Glucometer" /> & lt;statusCode code="completed" /> <effectiveTime value= "576917218987" /> <value unit="mg/dL" xsi: type="PQ" value="109" /> <referenceRange> <observationRange> <text>65-110</text&gt ; </observationRange> </referenceRange> </ observation> </component> </organizer> </entry> & lt;entry> <organizer moodCode="EVN" classCode="BATTERY& quot;> <templateId root="2.16.840.1.766242.10.20.22.4.1" /& gt; <id nullFlavor="NA" /> <code codeSystem=" local" code="LBGM" displayName="L900.0530" />< statusCode code="completed" /> <component> < observation moodCode="EVN" classCode="OBS"> < templateId root="2.16.840.1.901758.10.20.22.4.2" /> < id nullFlavor="NA" /> <code codeSystem="local&quot ; code="850.0100" displayName="Glucometer" /> & lt;statusCode code="completed" /> <effectiveTime value= "557167721757" /> <value unit="mg/dL" xsi: type="PQ" value="176" /> <referenceRange> <observationRange> <text>65-110</text> </observationRange> </referenceRange> &lt ;/observation> </component> </organizer> </entry> <entry> <organizermoodCode="EVN" classCode="BATTERY "> <templateId root="2.16.840.1.938542.10.20.22.4.1" / > <id nullFlavor="NA" /> <code codeSystem=" local" code="LBGM" displayName="L900.0530" /> & lt;statusCode code="completed" /> <component> &lt ;observation moodCode="EVN" classCode="OBS"> &lt ;templateId root="2.16.840.1.384402.10.20.22.4.2" /> < id nullFlavor="NA" /> <code codeSystem="local&quot ; code="850.0100" displayName="Glucometer" /> & lt;statusCode code="completed" /> <effectiveTime value= "083041143156" /> <value unit="mg/dL" xsi: type="PQ" value="278" /> <referenceRange> <observationRange> <text>65-110</text&gt ; </observationRange> </referenceRange> </ observation> </component> </organizer> </entry> & lt;entry> <organizer moodCode="EVN" classCode="BATTERY& quot;> <templateId root="2.16.840.1.830683.10.20.22.4.1" /& gt; <id nullFlavor="NA" /> <code codeSystem=" local" code="LBGM" displayName="L900.0530" /> & lt;statusCode code="completed" /> <component> &lt ;observation moodCode="EVN" classCode="OBS"> &lt ;templateId root="2.16.840.1.686957.10.20.22.4.2" /> <id nullFlavor="NA" /> <code codeSystem="local" code="850.0100" displayName="Glucometer" /> < statusCode code="completed" /> <effectiveTime value=& quot;984446970004" /> <value unit="mg/dL" xsi:type ="PQ" value="340" /> <referenceRange> <observationRange> <text>65-110</text> </observationRange> </referenceRange> </ observation> </component> </organizer> </entry> &lt ;entry> <organizer moodCode="EVN" classCode="BATTERY& quot;> <templateId root="2.16.840.1.784321.10.20.22.4.1" /& gt; <id nullFlavor="NA" /> <code codeSystem=" local" code="LBGM" displayName="L900.0530" /> & lt;statusCode code="completed" /> <component> < observation moodCode="EVN" classCode="OBS"> < templateId root="2.16.840.1.873904.10.20.22.4.2" /> < id nullFlavor="NA" /> <code codeSystem="local&quot ; code="850.0100" displayName="Glucometer" /> & lt;statusCode code="completed" /> <effectiveTime value=" 630863955259" /> <value unit="mg/dL" xsi:type=& quot;PQ" value="273" /> <referenceRange> <observationRange> <text>65-110</text> </observationRange> </referenceRange> </ observation> </component> </organizer> </entry> & lt;entry> <organizer moodCode="EVN" classCode="BATTERY& quot;> <templateId root="2.16.840.1.359013.10.20.22.4.1" /& gt; <id nullFlavor="NA" /> <code codeSystem=" local" code="LBGM" displayName="L900.0530" /> & lt;statusCode code="completed" /> <component> &lt ;observation moodCode="EVN" classCode="OBS"> &lt ;templateId root="2.16.840.1.910247.10.20.22.4.2" /> < id nullFlavor="NA" /> <code codeSystem="local&quot ; code="850.0100" displayName="Glucometer" /> & lt;statusCode code="completed" /> <effectiveTime value= "431869895617" /> <value unit="mg/dL" xsi: type="PQ" value="142" /> <referenceRange> <observationRange> <text>65-110</text&gt ; </observationRange> </referenceRange> & lt;/observation> </component> </organizer> </entry&gt ; <entry> <organizer moodCode="EVN" classCode=" BATTERY"><templateId root="2.16.840.1.170444.10.20.22.4.1" /> <id nullFlavor="NA" /> <code codeSystem=&quot ;local" code="LBGM" displayName="L900.0530" /> <statusCode code="completed" /> <component> & lt;observation moodCode="EVN" classCode="OBS"> & lt;templateId root="2.16.840.1.904263.10.20.22.4.2" /> &lt ;id nullFlavor="NA" /> <code codeSystem="local" code= "850.0100" displayName="Glucometer"/> < statusCode code="completed" /> <effectiveTime value=& quot;558087191881" /> <value unit="mg/dL" xsi:type ="PQ" value="225" /> <referenceRange> <observationRange> <text>65-110</text> </observationRange> </referenceRange> </ observation> </component> </organizer> </entry> & lt;entry> <organizer moodCode="EVN" classCode="BATTERY& quot;> <templateId root="2.16.840.1.133609.10.20.22.4.1" /& gt; <id nullFlavor="NA" /> <code codeSystem="local& quot; code="LBGM" displayName="L900.0530" /> < statusCode code="completed" /> <component> < observation moodCode="EVN" classCode="OBS"> < templateId root="2.16.840.1.003461.10.20.22.4.2" /> < id nullFlavor="NA" /> <code codeSystem="local&quot ; code="850.0100" displayName="Glucometer" /> & lt;statusCode code="completed" /> <effectiveTime value= "622431706591" /> <value unit="mg/dL" xsi: type="PQ" value="217" /> <referenceRange> <observationRange> <text>65-110</text&gt ; </observationRange> </referenceRange> & lt;/observation> </component> </organizer> </entry&gt ; <entry> <organizer moodCode="EVN" classCode=" BATTERY"> <templateId root="[id number]& quot; /> <id nullFlavor="NA" /> <code codeSystem ="local" code="LUAMIC" displayName="L200.0050" /& gt; <statusCode code="completed" /> <component> <observation moodCode="EVN" classCode="OBS"> <templateId root="[id number]" /> <id nullFlavor="NA" /> <code codeSystem=& quot;local" code="200.0150" displayName="POTASSIUM" /& gt; <statusCode code="completed" /> < effectiveTime value="[id number]" /> <value unit="&quot ; xsi:type="PQ" value="Urine, Clean Catch" /> < referenceRange> <observationRange> <text> NRG</text> </observationRange> </ referenceRange> </observation> </component> < component> <observation moodCode="EVN" classCode=" OBS"> <templateId root="2.16.840.1.817808.10.20.22.4.2& quot; /> <id nullFlavor="NA" /> <code codeSystem="local" code="200.0200" displayName=" CHLORIDE" /> <statusCode code="completed" /> <effectiveTime value="576021092886" /> < value unit="" xsi:type="PQ" value="YELLOW" /> <referenceRange> <observationRange> <text>YELLOW</text> </observationRange> </referenceRange> </observation> </component> <component> <observation moodCode="EVN" classCode=& quot;OBS"> <templateId root=" 2.16.840.1.319241.10.20.22.4.2" /> <idnullFlavor="NA& quot; /> <code codeSystem="local" code="200.0300& quot; displayName="ANION GAP" /> <statusCode code=&quot ;completed" /> <effectiveTime value="753094291185" /> <value unit=""xsi:type="PQ" value=" SL CLOUDY" /> <referenceRange><observationRange> <text>NRG</text> </observationRange> </referenceRange> </observation> </component& gt; <component> <observation moodCode="EVN" classCode="OBS"> <templateId root=" 2.16.840.1.455164.10.20.22.4.2" /> <id nullFlavor="NA& quot; /> <code codeSystem="local" code="200.0350& quot; displayName="BLOOD UREA NITROGEN" /> <statusCode code="completed" /> <effectiveTime value=" 837773948258" /> <value unit="" xsi:type="PQ& quot; value="5.0" /> <referenceRange> &lt ;observationRange> <text>5.0-8.0</text> & lt;/observationRange></referenceRange> </observation> </component> <component> <observation moodCode=" EVN" classCode="OBS"> <templateId root=" 2.16.840.1.617339.10.20.22.4.2" /> <id nullFlavor="NA& quot; /> <code codeSystem="local" code="200.0450& quot; displayName="BUN/CREATININE RATIO" /> < statusCode code="completed" /> <effectiveTime value=& quot;796042517713" /> <value unit="" xsi:type=& quot;PQ" value="NEGATIVE" /> <referenceRange> <observationRange> <text>NEGATIVE</text& gt; </observationRange> </referenceRange> </observation> </component> <component>< observation moodCode="EVN" classCode="OBS"> < templateId root="2.16.840.1.487795.10.20.22.4.2" /> < id nullFlavor="NA" /> <code codeSystem="local" code ="200.0500" displayName="GLUCOSE" /> < statusCode code="completed" /> <effectiveTime value=& quot;100933012146" /> <value unit="" xsi:type=& quot;PQ" value="NEGATIVE" /> <referenceRange> <observationRange> <text>NEGATIVE</text& gt; </observationRange> </referenceRange> </observation> </component> <component> &lt ;observation moodCode="EVN" classCode="OBS"> &lt ;templateId root="2.16.840.1.900817.10.20.22.4.2" /> < id nullFlavor="NA" /> <code codeSystem="local&quot ; code="200.0600" displayName="CALCIUM" /> < statusCode code="completed" /> <effectiveTime value=& quot;828952592153" /> <value unit="" xsi:type=& quot;PQ" value="NEGATIVE" /> <referenceRange> <observationRange> <text>NEGATIVE</text&gt ; </observationRange> </referenceRange> & lt;/observation> </component> <component> < observation moodCode="EVN" classCode="OBS"> < templateId root="2.16.840.1.126545.10.20.22.4.2" /> < id nullFlavor="NA" /> <code codeSystem="local&quot ; code="200.0750" displayName="BILIRUBIN, CONJUG &amp; UNCONJUG" /> <statusCode code="completed" /> <effectiveTime value="658364312126" /> < value unit="" xsi:type="PQ" value="NEGATIVE" /&gt ; <referenceRange> <observationRange> <text>NEGATIVE</text> </observationRange> </referenceRange> </observation> </component> <component> <observation moodCode="EVN" classCode= "OBS"> <templateId root=" 2.16.840.1.347722.10.20.22.4.2" /> <id nullFlavor="NA& quot; /> <code codeSystem="local" code="200.1000& quot; displayName="TOTAL PROTEIN" /> <statusCode code=& quot;completed" /> <effectiveTime value="430779132122& quot; /> <value unit="/HPF" xsi:type="PQ" value="10-20" /> <interpretationCode codeSystem=" local" code="*" /> <referenceRange> <observationRange> <text>0-3</text> </ observationRange> </referenceRange> </observation&gt ;</component> <component> <observation moodCode=&quot ;EVN" classCode="OBS"> <templateId root=" 2.16.840.1.724084.10.20.22.4.2" /> <id nullFlavor="NA" /> <code codeSystem="local" code="200.1050" displayName="ALBUMIN" /> <statusCode code=" completed" /> <effectiveTime value="894236213244" /> <value unit="/HPF" xsi:type="PQ" value=& quot;30-50" /> <interpretationCode codeSystem="local& quot; code="*" /> <referenceRange> < observationRange> <text>0-5</text> </ observationRange> </referenceRange> </observation> </component> <component> <observation moodCode=& quot;EVN" classCode="OBS"> <templateId root=" 2.16.840.1.097497.10.20.22.4.2" /> <id nullFlavor="NA& quot; /> <code codeSystem="local" code="200.1150& quot; displayName="ALBUMIN/GLOBULIN RATIO" /> < statusCode code="completed" /> <effectiveTime value=& quot;985708369862" /> <value unit="" xsi:type=& quot;PQ" value="5-10" /> <referenceRange> <observationRange> <text>NRG</text> </observationRange> </referenceRange> </ observation> </component> <component><observation moodCode="EVN" classCode="OBS"> <templateId root="2.16.840.1.333384.10.20.22.4.2" /> <id nullFlavor ="NA" /> <code codeSystem="local" code=" 200.1750" displayName="CKMB" /> <statusCode code=& quot;completed" /> <effectiveTime value="519982499198& quot; /> <value unit="" xsi:type="PQ" value=& quot;3+" /> <interpretationCode codeSystem="local&quot ; code="*" /> <referenceRange> < observationRange> <text>NEGATIVE</text> & lt;/observationRange> </referenceRange> </ observation> </component> <component> < observation moodCode="EVN" classCode="OBS"> < templateId root="2.16.840.1.582365.10.20.22.4.2"/> <id nullFlavor="NA" /> <code codeSystem="local" code="200.2600" displayName="GENTAMICIN,RANDOM" /> <statusCode code="completed" /> <effectiveTime value="913860273499" /> <value unit="" xsi:type=&quot ;PQ" value="Cult reflexed &setup"/> < referenceRange> <observationRange> <text> NRG</text> </observationRange> </ referenceRange> </observation> </component> < component> <observation moodCode="EVN" classCode=" OBS"> <templateId root="2.16.840.1.894166.10..22.4.2& quot; /> <id nullFlavor="NA" /> <code codeSystem="local" code="200.0325" displayName=" Specific [place],Urine" /> <statusCode code="completed& quot; /> <effectiveTime value="253077532933" /> <value unit="" xsi:type="PQ" value="1.020&quot ; /> <referenceRange> <observationRange> <text>1.015-1.025</text> </observationRange> </referenceRange> </observation> </component& gt; <component> <observation moodCode="EVN" classCode="OBS"> <templateId root=" 2.16.840.1.831713.10.20.22.4.2" /> <id nullFlavor="NA& quot; /> <code codeSystem="local" code="200.0410& quot; displayName="Leukocyte Esterase,Urine" /> < statusCode code="completed" /> <effectiveTime value=& quot;816969644119" /> <value unit="" xsi:type=& quot;PQ" value="3+" /><referenceRange> < observationRange> <text>NEGATIVE</text> & lt;/observationRange> </referenceRange> </ observation> </component> <component> < observation moodCode="EVN" classCode="OBS"> < templateId root="2.16.840.1.493337.10.20.22.4.2" /> < id nullFlavor="NA" /> <code codeSystem="local&quot ; code="200.0420" displayName="Nitrate,Urine" /> <statusCode code="completed" /> <effectiveTime value="603451591672" /> <value unit="" xsi: type="PQ" value="NEGATIVE" /> <referenceRange > <observationRange> <text>NEGATIVE</ text> </observationRange> </referenceRange> & lt;/observation> </component> <component> < observation moodCode="EVN" classCode="OBS"> < templateId root="2.16.840.1.775868.10.20.22.4.2" /><id nullFlavor="NA" /> <code codeSystem="local" code="200.0740" displayName="Urobilinogen,Urine" /> <statusCode code="completed" /> <effectiveTime value="913800145890" /> <value unit="EU/DL" xsi:type="PQ" value="0.2" /> <referenceRange& gt; <observationRange> <text>NORMAL</text > </observationRange> </referenceRange> </observation> </component> <component> & lt;observation moodCode="EVN" classCode="OBS"> & lt;templateId root="2.16.840.1.637283.10.20.22.4.2" /> &lt ;id nullFlavor="NA" /> <code codeSystem="local& quot; code="200.0825" displayName="Occult Blood,Urine - Dipstick& quot; /> <statusCode code="completed" /> & lt;effectiveTime value="761249021550" /> <valueunit=& quot;" xsi:type="PQ" value="3+" /> < referenceRange> <observationRange> <text> NEGATIVE</text> </observationRange> </ referenceRange> </observation> </component> </ organizer> </entry> <entry> <organizer moodCode="EVN " classCode="BATTERY"> <templateId root=" 2.16.840.1.866287.10.20.22.4.1" /> <id nullFlavor="NA&quot ; /> <code codeSystem="local" code="MCUU" displayName="M120.0100" /> <statusCode code="completed " /> <component> <observation moodCode="EVN& quot; classCode="OBS"> <templateId root=" 2.16.840.1.815999.10.20.22.4.2" /> <id nullFlavor="NA& quot; /> <code codeSystem="local" code="120.0100& quot; displayName="Urine Culture" /> <statusCode code=& quot;completed" /> <effectiveTime value="203411240332& quot; /> <value unit="CFU/ml" xsi:type="PQ" value=" " /> <referenceRange> < observationRange> <text>NRG</text> </ observationRange> </referenceRange> </observation&gt ; </component> </organizer> </entry> <entry> <organizer moodCode="EVN" classCode="BATTERY"> <templateId root="2.16.840.1.003952.10.20.22.4.1" /> < id nullFlavor="NA" /> <code codeSystem="local" code="LBGM" displayName="L900.0530" /> < statusCode code="completed" /> <component> < observation moodCode="EVN" classCode="OBS"> < templateId root="2.16.840.1.063811.10.20.22.4.2" /> < id nullFlavor="NA" /> <code codeSystem="local&quot ; code="850.0100" displayName="Glucometer" /> & lt;statusCode code="completed" /> <effectiveTime value= "693044958770" /> <value unit="mg/dL" xsi: type="PQ" value="211" /> <referenceRange> <observationRange> <text>65-110</text&gt ; </observationRange> </referenceRange> & lt;/observation> </component> </organizer> </entry&gt ; <entry> <organizer moodCode="EVN" classCode=" BATTERY"> <templateId root="2.16.840.1.767909.10.20.22.4.1& quot; /> <id nullFlavor="NA" /> <code codeSystem ="local" code="LBMP" displayName="L200.0050" /&gt ; <statusCode code="completed" /> <component> & lt;observation moodCode="EVN" classCode="OBS"> & lt;templateId root="2.16.840.1.720092.10.20.22.4.2" /> &lt ;id nullFlavor="NA" /> <code codeSystem="local" code="300.0400" displayName="FUNGAL CULTURE." /> <statusCode code="completed" /> <effectiveTime value="770554443057" /> <value unit="MG/DL" xsi:type="PQ" value="1.3" /> < interpretationCode codeSystem="local" code="" /> <referenceRange> <observationRange> &lt ;text>0.7-1.2</text> </observationRange> < /referenceRange> </observation> </component> < component> <observation moodCode="EVN" classCode=" OBS"> <templateId root="2.16.840.1.271073.10.20.22.4.2& quot; /> <id nullFlavor="NA" /> <code codeSystem="local" code="300.0450" displayName="FUNGAL CULTURE, BLOOD." /> <statusCode code="completed" /&gt ; <effectiveTime value="449021916121" /> < value unit="RATIO" xsi:type="PQ" value="46" /> <interpretationCode codeSystem="local" code="*&quot ; /> <referenceRange> <observationRange> <text>6-26</text> </observationRange> & lt;/referenceRange> </observation> </component> <component> <observation moodCode="EVN" classCode=& quot;OBS"> <templateId root=" 2.16.840.1.987143.10.20.22.4.2" /> <id nullFlavor="NA& quot; /> <code codeSystem="local" code="300.0100& quot; displayName="NA - Sodium" /> <statusCode code=& quot;completed" /> <effectiveTime value="376072731969& quot; /> <value unit="MEQ/L" xsi:type="PQ" value="142" /> <referenceRange> < observationRange> <text>134-144</text></ observationRange> </referenceRange> </observation&gt ; </component> <component> <observation moodCode ="EVN" classCode="OBS"> <templateId root=& quot;2.16.840.1.744524.10.20.22.4.2" /> <id nullFlavor=&quot ;NA" /> <code codeSystem="local" code=" 300.0150" displayName="Potassium" /> <statusCode code="completed" /> <effectiveTime value=" 729270970279" /> <value unit="MEQ/L" xsi:type=& quot;PQ" value="5.1" /> <interpretationCode codeSystem="local" code="*" /> < referenceRange> <observationRange> <text> 3.6-5</text> </observationRange> </referenceRange> </observation> </component> <component> <observation moodCode="EVN" classCode="OBS"> <templateIdroot="2.16.840.1.175774.10.20.22.4.2" /> <id nullFlavor="NA" /> <code codeSystem="local& quot; code="300.0200" displayName="Chloride" /> <statusCode code="completed" /> <effectiveTime value ="307557024659" /> <value unit="MEQ/L" xsi: type="PQ" value="107" /> <referenceRange> <observationRange> <text>98-107</text> </observationRange> </referenceRange> </ observation> </component> <component> < observation moodCode="EVN" classCode="OBS"> < templateId root="2.16.840.1.281638.10.20.22.4.2" /> < id nullFlavor="NA" /> <codecodeSystem="local&quot ; code="300.0250" displayName="CO2 - Carbon Dioxide" /> <statusCode code="completed" /> < effectiveTime value="424315567942" /> <value unit=&quot ;MEQ/L" xsi:type="PQ" value="26" /> < referenceRange> <observationRange> <text> 22-30</text> </observationRange> </ referenceRange> </observation> </component> < component> <observation moodCode="EVN" classCode=" OBS"> <templateId root="2.16.840.1.965736.10.20.22.4.2& quot; /> <id nullFlavor="NA" /> <code codeSystem="local" code="300.0300" displayName="Anion Gap" /> <statusCode code="completed" /> <effectiveTime value="042726659595" /> <value unit="MEQ/L" xsi:type="PQ" value="9" /> &lt ;referenceRange> <observationRange> <text&gt ;5-15</text> </observationRange> </ referenceRange> </observation> </component> < component> <observation moodCode="EVN" classCode=" OBS"> <templateId root="2.16.840.1.730786.10.20.22.4.2& quot; /> <id nullFlavor="NA" /> <code codeSystem="local" code="300.0350" displayName="BUN - Blood Urea Nitrogen" /> <statusCode code="completed& quot; /> <effectiveTime value="149586115907" /> <value unit="MG/DL" xsi:type="PQ" value="60.0& quot; /> <interpretationCode codeSystem="local" code="& quot; /> <referenceRange> <observationRange> <text>7-17</text></observationRange> & lt;/referenceRange> </observation> </component> <component> <observation moodCode="EVN" classCode=& quot;OBS"> <templateId root=" 2.16.840.1.916356.10.20.22.4.2" /> <id nullFlavor="NA& quot; /> <code codeSystem="local" code="300.0410& quot; displayName="Glomerular Filtration Rate" /> < statusCode code="completed" /> <effectiveTime value=& quot;187216821333" /> <value unit="" xsi:type=& quot;PQ" value="40" /> <referenceRange> <observationRange> <text>NRG</text> </observationRange> </referenceRange> </ observation> </component> <component> < observation moodCode="EVN" classCode="OBS"> < templateId root="2.16.840.1.426834.10.20.22.4.2" /> < id nullFlavor="NA" /> <code codeSystem="local&quot ; code="300.0500" displayName="Glucose" /> < statusCode code="completed" /><effectiveTime value=" 964016711903" /> <value unit="MG/DL" xsi:type=& quot;PQ" value="122" /> <interpretationCode codeSystem="local" code="*" /> < referenceRange> <observationRange> <text> 65-110</text> </observationRange> </ referenceRange> </observation> </component> < component> <observation moodCode="EVN" classCode=" OBS"> <templateId root="2.16.840.1.067462.10.20.22.4.2& quot; /> <id nullFlavor="NA" /> <code codeSystem="local" code="300.2000" displayName=" Osmolality,Calculated" /> <statusCode code="completed& quot; /> <effectiveTime value="829399976461" /> <value unit="MOSM/KG" xsi:type="PQ" value="291 " /> <interpretationCode codeSystem="local" code=& quot;*" /> <referenceRange> < observationRange> <text>261-280</text> & lt;/observationRange> </referenceRange> </observation&gt ; </component> <component> <observation moodCode ="EVN" classCode="OBS"> <templateId root=& quot;2.16.840.1.039964.10.20.22.4.2" /> <id nullFlavor=&quot ;NA" /> <code codeSystem="local" code=" 300.2200" displayName="Calcium" /> <statusCode code="completed" /> <effectiveTime value=" 665282175002" /> <value unit="MG/DL" xsi:type=& quot;PQ" value="9.4" /> <referenceRange> & lt;observationRange> <text>8.4-10.2</text> </observationRange> </referenceRange> </ observation> </component> <component> < observation moodCode="EVN"classCode="OBS"> < templateId root="2.16.840.1.369527.10.20.22.4.2" /> < id nullFlavor="NA" /> <code codeSystem="local&quot ; code="300.0095" displayName="LICTERUS" /> < statusCode code="completed" /> <effectiveTime value=& quot;322721614523" /> <value unit="" xsi:type=& quot;PQ" value="< 2" /> <referenceRange&gt ; <observationRange> <text>0-7</text>& lt;/observationRange> </referenceRange> </ observation> </component> <component> < observation moodCode="EVN" classCode="OBS"> < templateId root="2.16.840.1.614944.10.20.22.4.2" /> < id nullFlavor="NA" /> <code codeSystem="local&quot ; code="300.0096" displayName="LHEMOLYSIS" /> & lt;statusCode code="completed" /> <effectiveTime value= "476286016269" /> <value unit="" xsi:type=& quot;PQ" value="< 15" /> <referenceRange&gt ; <observationRange> <text>0-25</text> </observationRange> </referenceRange> </ observation> </component> <component> < observation moodCode="EVN" classCode="OBS"> < templateId root="2.16.840.1.779629.10.20.22.4.2" /> < id nullFlavor="NA" /> <code codeSystem="local&quot ; code="300.0097" displayName="LTURBIDITY" /> & lt;statusCode code="completed" /> <effectiveTime value= "903888990720" /> <value unit="" xsi:type=& quot;PQ" value="< 20" /> <referenceRange&gt ; <observationRange> <text>0-20</text&gt ; </observationRange> </referenceRange> </ observation> </component> </organizer> </entry> & lt;entry> <organizer moodCode="EVN" classCode="BATTERY& quot;> <templateId root="2.16.840.1.741044.10.20.22.4.1" /& gt; <id nullFlavor="NA" /> <code codeSystem=" local" code="LCBC" displayName="L100.0050" /> & lt;statusCode code="completed" /> <component> &lt ;observation moodCode="EVN" classCode="OBS"> &lt ;templateId root="2.16.840.1.584903.10.20.22.4.2" /> < id nullFlavor="NA" /> <code codeSystem="local&quot ; code="100.0150" displayName="WBC -WHITE BLOOD COUNT" /&gt ; <statusCode code="completed" /> < effectiveTime value="068954464297" /> <value unit=&quot ;T/MM3" xsi:type="PQ" value="11.5" /> < interpretationCode codeSystem="local" code="*" /> <referenceRange> <observationRange> <text& gt;4.5-11.0</text> </observationRange> </ referenceRange> </observation> </component> < component> <observation moodCode="EVN" classCode=" OBS"> <templateId root="2.16.840.1.872355.10.20.22.4.2& quot; /> <id nullFlavor="NA" /> <code codeSystem="local" code="100.0250" displayName="RED BLOOD COUNT"/> <statusCode code="completed" /> <effectiveTime value="703024401149" /> < value unit="M/MM3" xsi:type="PQ" value="3.30" /&gt ; <interpretationCode codeSystem="local" code="*&quot ; /> <referenceRange> <observationRange> <text>4.00-5.20</text> </observationRange&gt ; </referenceRange> </observation> </ component> <component> <observation moodCode="EVN& quot; classCode="OBS"> <templateId root=" 2.16.840.1.678548.10.20.22.4.2" /> <id nullFlavor="NA& quot; /> <code codeSystem="local" code="100.0300& quot; displayName="HGB - HEMOGLOBIN" /> <statusCode code="completed" /> <effectiveTime value=" 690917739574" /> <value unit="GM/DL" xsi:type=& quot;PQ" value="9.3" /> <interpretationCode codeSystem ="local" code="*" /> <referenceRange> <observationRange> <text>12-16</text> </observationRange> </referenceRange> </ observation> </component> <component> < observation moodCode="EVN" classCode="OBS"> < templateId root="2.16.840.1.005947.10.20.22.4.2" /><id nullFlavor="NA" /> <code codeSystem="local" code="100.0400" displayName="HCT - HEMATOCRIT" /> <statusCode code="completed" /> <effectiveTime value="673206816999" /> <value unit="%& quot; xsi:type="PQ" value="31.5" /> < interpretationCode codeSystem="local" code="*" /> <referenceRange> <observationRange> <text>36 -46</text> </observationRange> </ referenceRange> </observation> </component> < component> <observation moodCode="EVN" classCode=" OBS"> <templateId root="2.16.840.1.123106.10.20.22.4.2" /& gt; <id nullFlavor="NA" /> <code codeSystem ="local" code="100.0550" displayName="MEAN CORPUSCULAR VOLUME" /> <statusCode code="completed" /> <effectiveTime value="589029203761" /> <value unit="UM3" xsi:type="PQ" value="95.5" /> <referenceRange> <observationRange> < text>80-100</text> </observationRange> </ referenceRange> </observation> </component> < component> <observation moodCode="EVN" classCode=" OBS"> <templateId root="2.16.840.1.288983.10.20.22.4.2& quot; /> <id nullFlavor="NA" /> <code codeSystem="local" code="100.0600" displayName="MEAN CORPUSCULAR HGB" /> <statusCode code="completed" / ><effectiveTime value="635904452894" /> <value unit="UUG" xsi:type="PQ" value="28.2" /> <referenceRange> <observationRange> < text>26-34</text> </observationRange> </ referenceRange> </observation> </component> < component> <observation moodCode="EVN" classCode=" OBS"> <templateId root="2.16.840.1.236657.10.20.22.4.2& quot; /> <id nullFlavor="NA" /> <code codeSystem="local" code="100.0650" displayName="MEAN CORPUSCULAR HGB CONC(MCHC" /> <statusCode code=" completed" /> <effectiveTime value="483333292314" /> <value unit="GM/DL" xsi:type="PQ" value="29.5 " /> <interpretationCode codeSystem="local" code=& quot;*" /> <referenceRange> < observationRange> <text>31-37</text> < /observationRange> </referenceRange> </observation& gt; </component> <component> <observation moodCode="EVN" classCode="OBS"> <templateId root="2.16.840.1.339872.10.20.22.4.2" /> <id nullFlavor ="NA" /><code codeSystem="local" code="100.0750& quot; displayName="RDW STANDARD DEVIATION" /> < statusCode code="completed" /> <effectiveTime value=& quot;602719872157" /> <value unit="FL" xsi:type=& quot;PQ" value="55.6" /> <interpretationCode codeSystem="local" code="*" /> < referenceRange> <observationRange> <text> 36.9-50.2</text> </observationRange> </ referenceRange> </observation> </component> < component> <observation moodCode="EVN" classCode=" OBS"> <templateId root="2.16.840.1.980981.10.20.22.4.2& quot; /> <id nullFlavor="NA" /> <code codeSystem="local" code="100.0850" displayName="PLT - PLATELET COUNT" /> <statusCode code="completed" /> <effectiveTime value="602674486604" /> < value unit="T/MM3" xsi:type="PQ" value="356" /&gt ; <referenceRange> <observationRange> <text>130-400</text> </observationRange> </referenceRange> </observation> </component> <component> <observation moodCode="EVN" classCode="OBS"> <templateId root=" 2.16.840.1.803789.10.20.22.4.2" /> <id nullFlavor="NA& quot; /> <code codeSystem="local" code="100.0950& quot; displayName="MEAN PLATELET VOLUME" /> < statusCode code="completed" /> <effectiveTime value=& quot;489297540274" /> <value unit="UM3" xsi:type=& quot;PQ" value="9.0" /> <interpretationCode codeSystem="local" code="*" /> < referenceRange> <observationRange> <text> 9.4-12.4</text> </observationRange> </ referenceRange> </observation> </component> </ organizer> </entry> <entry> <organizer moodCode="EVN " classCode="BATTERY"> <templateId root=" 2.16.840.1.415514.10.20.22.4.1" /> <id nullFlavor="NA&quot ; /> <code codeSystem="local" code="LDIFFM" displayName="L100.0105" /> <statusCode code="completed " /> <component> <observation moodCode="EVN& quot; classCode="OBS"> <templateId root=" 2.16.840.1.260018.10.20.22.4.2" /> <id nullFlavor="NA& quot; /> <code codeSystem="local" code="100.1650& quot; displayName="NEUTROPHILS % (MANUAL)" /> < statusCode code="completed" /> <effectiveTime value=& quot;882252505196" /> <value unit="%" xsi: type="PQ" value="85.0" /> <interpretationCode codeSystem="local" code="*" /> < referenceRange> <observationRange> <text> 33-66</text> </observationRange> </referenceRange&gt ; </observation> </component> <component> <observation moodCode="EVN" classCode="OBS"> <templateId root="2.16.840.1.928889.10.20.22.4.2" /> < id nullFlavor="NA" /> <code codeSystem="local&quot ; code="100.1750" displayName="BAND NEUTROPHILS %" / > <statusCode code="completed" /> < effectiveTime value="204456817125" /> <value unit=&quot ;%" xsi:type="PQ" value="2.0" /> & lt;referenceRange> <observationRange> <text& gt;0-6</text> </observationRange> </referenceRange& gt; </observation> </component> <component> <observation moodCode="EVN" classCode="OBS"> <templateId root="2.16.840.1.377653.10.20.22.4.2" /> &lt ;id nullFlavor="NA" /> <code codeSystem="local& quot; code="100.1850" displayName="LYMPHOCYTES % (MANUAL) " /> <statusCode code="completed" /> & lt;effectiveTime value="481765609981" /> <value unit="& #37;" xsi:type="PQ" value="10.0" /> < interpretationCode codeSystem="local" code="*" /> <referenceRange> <observationRange> < text>23-45</text> </observationRange> </ referenceRange> </observation> </component> < component> <observation moodCode="EVN" classCode=" OBS"> <templateId root="2.16.840.1.998716.10.20.22.4.2& quot; /> <idnullFlavor="NA" /> <code codeSystem="local" code="100.1950" displayName=" MONOCYTES % (MANUAL)" /> <statusCode code=" completed" /> <effectiveTime value="692886221512" /> <value unit="%" xsi:type="PQ" value="3.0" /> <referenceRange> < observationRange> <text>0-9.0</text> </ observationRange> </referenceRange> </observation&gt ; </component> <component> <observation moodCode ="EVN" classCode="OBS"> <templateId root=& quot;2.16.840.1.507134.10.20.22.4.2" /> <id nullFlavor=&quot ;NA" /> <code codeSystem="local" code=" 100.2400" displayName="PROLYMPHOCYTES %" /> & lt;statusCode code="completed" /> <effectiveTime value= "653606892609" /> <value unit="T/MM3" xsi: type="PQ" value="9.8" /> <interpretationCode codeSystem="local" code="*" /> < referenceRange> <observationRange> <text>1.8-7.7& lt;/text> </observationRange> </referenceRange& gt; </observation> </component> <component> <observation moodCode="EVN" classCode="OBS"> <templateId root="2.16.840.1.101444.10.20.22.4.2" /> & lt;id nullFlavor="NA" /> <code codeSystem="local& quot; code="100.2450" displayName="PLASMA CELLS %" / > <statusCode code="completed" /> < effectiveTime value="416314237175" /> <value unit=&quot ;T/MM3" xsi:type="PQ" value="0.2" /> < referenceRange> <observationRange> <text> NRG</text> </observationRange> </ referenceRange> </observation> </component> < component> <observation moodCode="EVN" classCode=" OBS"> <templateId root="2.16.840.1.895649.10.20.22.4.2& quot; /> <id nullFlavor="NA" /> <code codeSystem="local" code="100.2650" displayName=" NEUTROPHILS # (MANUAL)" /> <statusCode code="completed& quot; /> <effectiveTime value="630212099226" /> < value unit="T/MM3" xsi:type="PQ" value="0.3" /&gt ; <referenceRange> <observationRange> <text>0-0.8</text> </observationRange> < /referenceRange> </observation> </component> &lt ;component> <observation moodCode="EVN" classCode=" OBS"> <templateId root="2.16.840.1.500424.10.20.22.4.2& quot; /> <id nullFlavor="NA" /> <code codeSystem="local" code="100.4750" displayName=" MACROCYTOSIS" /> <statusCode code="completed" /&gt ; <effectiveTime value="491814037185" /> < value unit="" xsi:type="PQ"value="1+" /> <referenceRange> <observationRange> <text&gt ;NRG</text> </observationRange> </ referenceRange> </observation> </component> < component> <observation moodCode="EVN" classCode=" OBS"> <templateId root="2.16.840.1.976966.10.20.22.4.2& quot; /> <id nullFlavor="NA" /> <code codeSystem="local" code="100.4850" displayName=" POLYCHROMASIA" /> <statusCode code="completed" /> <effectiveTime value="633539626086" /> < value unit="" xsi:type="PQ" value="2+" /> <referenceRange> <observationRange> &lt ;text>NRG</text> </observationRange> </ referenceRange> </observation> </component> < component> <observation moodCode="EVN" classCode=" OBS"> <templateId root="2.16.840.1.054793.10.20.22.4.2& quot; /> <id nullFlavor="NA" /> <code codeSystem="local" code="100.2550" displayName=" Lymphocytes # (Manual)" /> <statusCode code="completed& quot; /> <effectiveTime value="976186662891" /> <value unit="T/MM3" xsi:type="PQ" value="1.2& quot; /> <referenceRange> <observationRange> <text>1-4.8</text> </observationRange> </referenceRange> </observation> </component& gt; <component> <observation moodCode="EVN" classCode="OBS"> <templateId root=" 2.16.840.1.289242.10.20.22.4.2" /> <id nullFlavor="NA& quot; /> <code codeSystem="local" code="100.4565& quot; displayName="LRBCMOR" /> <statusCode code=" completed" /> <effectiveTime value="335007182087" /> <value unit="" xsi:type="PQ" value=" Abnormal" /> <referenceRange> < observationRange> <text>NRG</text> </ observationRange> </referenceRange> </observation&gt ; </component> </organizer> </entry> <entry> <organizer moodCode="EVN" classCode="BATTERY"> <templateId root="2.16.840.1.636662.10.20.22.4.1"/> < id nullFlavor="NA" /> <code codeSystem="local" code="LBGM" displayName="L900.0530" /> < statusCode code="completed"/> <component> < observation moodCode="EVN" classCode="OBS"> < templateId root="2.16.840.1.212880.10.20.22.4.2" /> < id nullFlavor="NA" /> <code codeSystem="local&quot ; code="850.0100" displayName="Glucometer" /> & lt;statusCode code="completed" /> <effectiveTime value=& quot;561021057682" /> <value unit="mg/dL" xsi:type ="PQ" value="121" /> <referenceRange> <observationRange> <text>65-110</text> </observationRange> </referenceRange> < /observation> </component> </organizer> </entry> <entry> <organizer moodCode="EVN" classCode="BATTERY& quot;> <templateId root="2.16.840.1.861044.10.20.22.4.1" /& gt; <id nullFlavor="NA" /> <code codeSystem=" local" code="LBGM" displayName="L900.0530" /> & lt;statusCode code="completed" /> <component> &lt ;observation moodCode="EVN" classCode="OBS"> &lt ;templateId root="2.16.840.1.881065.10.20.22.4.2" /> < id nullFlavor="NA" /> <code codeSystem="local&quot ; code="850.0100" displayName="Glucometer" /> & lt;statusCode code="completed" /> <effectiveTime value= "344036928113" /> <value unit="mg/dL" xsi: type="PQ" value="172" /> <referenceRange> <observationRange> <text>65-110</text&gt ; </observationRange> </referenceRange> & lt;/observation> </component> </organizer> </entry&gt ; <entry> <organizer moodCode="EVN" classCode=" BATTERY"> <templateId root="2.16.840.1.459274.10.20.22.4.1& quot; /> <id nullFlavor="NA" /> <code codeSystem ="local" code="LBGM" displayName="L900.0530" /&gt ; <statusCode code="completed" /> <component> <observation moodCode="EVN" classCode="OBS"> <templateId root="2.16.840.1.353828.10.20.22.4.2" /> <id nullFlavor="NA" /> <code codeSystem="local& quot; code="850.0100" displayName="Glucometer" /> <statusCode code="completed" /> <effectiveTime value="785597894200" /> <value unit="mg/dL" xsi:type="PQ" value="222" /> <referenceRange& gt; <observationRange> <text>65-110</text> </observationRange> </referenceRange> </ observation> </component> </organizer> </entry> & lt;entry> <organizer moodCode="EVN" classCode="BATTERY& quot;> <templateId root="2.16.840.1.536694.10.20.22.4.1" /& gt; <id nullFlavor="NA" /> <code codeSystem=" local" code="LBGM" displayName="L900.0530"/> & lt;statusCode code="completed" /> <component> &lt ;observation moodCode="EVN" classCode="OBS"> &lt ;templateId root="2.16.840.1.509840.10.20.22.4.2" /> < id nullFlavor="NA" /> <code codeSystem="local&quot ; code="850.0100" displayName="Glucometer" /> < statusCode code="completed" /> <effectiveTime value=& quot;338441961042" /> <value unit="mg/dL" xsi:type ="PQ" value="204" /> <referenceRange> <observationRange> <text>65-110</text> </observationRange> </referenceRange> < /observation> </component> </organizer> </entry> <entry> <organizer moodCode="EVN" classCode="BATTERY& quot;> <templateId root="2.16.840.1.079153.10.20.22.4.1" /& gt; <id nullFlavor="NA" /> <codecodeSystem=" local" code="LBMP" displayName="L200.0050" /> & lt;statusCode code="completed" /> <component> &lt ;observation moodCode="EVN" classCode="OBS"> &lt ;templateId root="2.16.840.1.558098.10.20.22.4.2" /> < id nullFlavor="NA" /> <code codeSystem="local&quot ; code="300.0400" displayName="FUNGAL CULTURE." /> <statusCode code="completed" /> <effectiveTime value="791671477744" /> <value unit="MG/DL" xsi:type="PQ" value="1.2" /> <referenceRange&gt ; <observationRange> <text>0.7-1.2</text& gt; </observationRange> </referenceRange> </observation> </component> <component> &lt ;observation moodCode="EVN" classCode="OBS"> &lt ;templateId root="2.16.840.1.037115.10.20.22.4.2" /> < id nullFlavor="NA" /> <code codeSystem="local&quot ; code="300.0450" displayName="FUNGAL CULTURE, BLOOD." /&gt ; <statusCode code="completed" /> < effectiveTime value="353727361788" /> <value unit=&quot ;RATIO" xsi:type="PQ" value="46" /> < interpretationCode codeSystem="local" code="*" /> <referenceRange> <observationRange> < text>6-26</text> </observationRange> </ referenceRange> </observation> </component> < component> <observation moodCode="EVN" classCode=" OBS"> <templateId root="2.16.840.1.755041.10.20.22.4.2& quot; /> <id nullFlavor="NA" /> <code codeSystem="local" code="300.0100" displayName="NA - Sodium" /> <statusCode code="completed" /> <effectiveTime value="484236930544" /> <value unit="MEQ/L" xsi:type="PQ" value="141" /> <referenceRange> <observationRange> <text> 134-144</text> </observationRange> </ referenceRange> </observation> </component> < component> <observation moodCode="EVN" classCode=" OBS"> <templateId root="2.16.840.1.455101.10.20.22.4.2" / > <id nullFlavor="NA" /> <code codeSystem="local" code="300.0150" displayName=" Potassium" /> <statusCode code="completed" /> <effectiveTime value="844108981224" /> < value unit="MEQ/L" xsi:type="PQ" value="5.1" /&gt ; <interpretationCode codeSystem="local" code="*&quot ; /> <referenceRange> <observationRange> <text>3.6-5</text> </observationRange> </referenceRange> </observation> </component> <component> <observation moodCode="EVN" classCode ="OBS"> <templateId root=" 2.16.840.1.339549.10.20.22.4.2" /> <id nullFlavor="NA& quot; /> <code codeSystem="local" code="300.0200& quot; displayName="Chloride" /> <statusCode code=" completed" /> <effectiveTime value="459594206060" /> <value unit="MEQ/L" xsi:type="PQ" value=& quot;108" /> <interpretationCode codeSystem="local&quot ; code="*" /> <referenceRange> < observationRange> <text>98-107</text> &lt ;/observationRange> </referenceRange> </observation& gt; </component> <component> <observation moodCode="EVN" classCode="OBS"> <templateId root="2.16.840.1.387244.10..22.4.2" /> <id nullFlavor ="NA" /> <code codeSystem="local" code=" 300.0250" displayName="CO2 - Carbon Dioxide" /> < statusCode code="completed" /> <effectiveTime value=& quot;520660726459" /> <value unit="MEQ/L" xsi:type=" PQ" value="27" /> <referenceRange> & lt;observationRange> <text>22-30</text> </ observationRange> </referenceRange> </observation&gt ; </component> <component> <observation moodCode ="EVN" classCode="OBS"> <templateId root=& quot;2.16.840.1.163901.10.20.22.4.2" /> <id nullFlavor="NA& quot; /> <code codeSystem="local" code="300.0300& quot; displayName="Anion Gap" /> <statusCode code=&quot ;completed" /> <effectiveTime value="364182527105&quot ; /> <value unit="MEQ/L" xsi:type="PQ" value= "6" /> <referenceRange> <observationRange& gt; <text>5-15</text> </observationRange& gt; </referenceRange> </observation> </ component> <component> <observation moodCode="EVN" classCode="OBS"> <templateId root=" 2.16.840.1.968918.10.20.22.4.2" /> <id nullFlavor="NA& quot; /> <code codeSystem="local" code="300.0350& quot; displayName="BUN - Blood Urea Nitrogen" /> < statusCode code="completed" /> <effectiveTime value=& quot;134716844692" /> <value unit="MG/DL" xsi:type ="PQ" value="55.0" /> <interpretationCode codeSystem="local" code="" /> < referenceRange> <observationRange> <text> 7-17</text> </observationRange> </referenceRange&gt ; </observation> </component> <component> <observation moodCode="EVN" classCode="OBS"> <templateId root="2.16.840.1.524361.10.20.22.4.2" /> <id nullFlavor="NA" /> <code codeSystem=" local" code="300.0410" displayName="Glomerular Filtration Rate" /> <statusCode code="completed" /> <effectiveTime value="675559784572" /> <value unit="" xsi:type="PQ" value="44" /> & lt;referenceRange> <observationRange> <text& gt;NRG</text> </observationRange> </ referenceRange> </observation> </component> < component> <observation moodCode="EVN" classCode=" OBS"> <templateId root="2.16.840.1.306616.10.20.22.4.2& quot; /> <id nullFlavor="NA" /> <code codeSystem="local" code="300.0500" displayName="Glucose " /> <statusCode code="completed" /> & lt;effectiveTime value="924352796519" /> <value unit=& quot;MG/DL" xsi:type="PQ" value="134" /> & lt;interpretationCode codeSystem="local" code="*" /> <referenceRange> <observationRange> & lt;text>65-110</text> </observationRange> &lt ;/referenceRange> </observation> </component> & lt;component> <observation moodCode="EVN" classCode=&quot ;OBS"> <templateId root="2.16.840.1.376255.10.20.22.4.2 " /> <id nullFlavor="NA" /> <code codeSystem="local" code="300.2000" displayName=" Osmolality,Calculated" /> <statusCode code="completed& quot; /> <effectiveTime value="673310468119" /> <value unit="MOSM/KG" xsi:type="PQ" value="288 " /> <interpretationCode codeSystem="local" code=& quot;*" /> <referenceRange> < observationRange> <text>261-280</text> </ observationRange> </referenceRange> </observation&gt ; </component> <component> <observation moodCode ="EVN" classCode="OBS"> <templateId root=& quot;2.16.840.1.982993.10.20.22.4.2" /> <id nullFlavor="NA& quot; /> <code codeSystem="local" code="300.2200& quot; displayName="Calcium" /> <statusCode code=" completed" /> <effectiveTime value="696540273482" /> <value unit="MG/DL" xsi:type="PQ" value=& quot;9.3" /> <referenceRange> <observationRange& gt; <text>8.4-10.2</text> </ observationRange> </referenceRange> </observation&gt ; </component> <component> <observation moodCode=& quot;EVN" classCode="OBS"> <templateId root=" 2.16.840.1.930433.10.20.22.4.2" /> <id nullFlavor="NA& quot; /> <code codeSystem="local" code="300.0095& quot; displayName="LICTERUS" /> <statusCode code=" completed" /><effectiveTime value="268859824402" /> <value unit="" xsi:type="PQ" value="< 2 " /> <referenceRange> <observationRange&gt ; <text>0-7</text> </observationRange&gt ; </referenceRange> </observation> </component&gt ; <component> <observation moodCode="EVN" classCode="OBS"> <templateId root=" 2.16.840.1.248685.10.20.22.4.2" /> <id nullFlavor="NA& quot; /> <code codeSystem="local" code="300.0096& quot; displayName="LHEMOLYSIS" /> <statusCode code=& quot;completed" /> <effectiveTimevalue="036901047998& quot; /> <value unit="" xsi:type="PQ" value=& quot;< 15" /> <referenceRange> < observationRange> <text>0-25</text> </ observationRange> </referenceRange> </observation&gt ; </component> <component> <observation moodCode ="EVN" classCode="OBS"> <templateId root=& quot;2.16.840.1.965343.10..22.4.2" /> <id nullFlavor=&quot ;NA" /> <code codeSystem="local" code=" 300.0097" displayName="LTURBIDITY" /> <statusCode code="completed" /> <effectiveTime value=" 107167687281" /> <value unit="" xsi:type="PQ& quot; value="< 20" /> <referenceRange> <observationRange> <text>0-20</text> </observationRange> </referenceRange> </ observation> </component> </organizer> </entry> & lt;entry> <organizer moodCode="EVN" classCode="BATTERY& quot;> <templateId root="2.16.840.1.153286.10.20.22.4.1" /& gt; <id nullFlavor="NA" /> <code codeSystem=" local" code="LCBC" displayName="L100.0050" /> < statusCode code="completed" /> <component> < observation moodCode="EVN" classCode="OBS"> < templateId root="2.16.840.1.727230.10.20.22.4.2" /> < id nullFlavor="NA" /> <code codeSystem="local&quot ; code="100.0150" displayName="WBC - WHITE BLOOD COUNT" /&gt ; <statusCode code="completed" /> < effectiveTime value="343728532322" /> <value unit=&quot ;T/MM3" xsi:type="PQ" value="9.3" /> < referenceRange> <observationRange> <text> 4.5-11.0</text> </observationRange> </ referenceRange> </observation> </component> < component> <observation moodCode="EVN" classCode=" OBS"> <templateId root="2.16.840.1.023941.10.20.22.4.2& quot; /> <id nullFlavor="NA" /> <code codeSystem="local" code="100.0250" displayName="RED BLOOD COUNT" /> <statusCode code="completed" /&gt ; <effectiveTime value="817177352192" /> < value unit="M/MM3" xsi:type="PQ" value="3.33" /&gt ; <interpretationCode codeSystem="local" code="*&quot ; /> <referenceRange> <observationRange> <text>4.00-5.20</text> </observationRange&gt ; </referenceRange> </observation> </ component> <component> <observation moodCode="EVN& quot; classCode="OBS"> <templateId root=" 2.16.840.1.053412.10.20.22.4.2" /> <id nullFlavor="NA& quot; /> <code codeSystem="local" code="100.0300& quot; displayName="HGB - HEMOGLOBIN" /> <statusCode code="completed" /> <effectiveTime value=" 197481783556" /> <value unit="GM/DL" xsi:type=& quot;PQ" value="9.3" /> <interpretationCode codeSystem="local" code="*" /> < referenceRange> <observationRange> <text>12- 16</text> </observationRange> </ referenceRange> </observation> </component> < component> <observation moodCode="EVN" classCode=" OBS"> <templateId root="2.16.840.1.980185.10.20.22.4.2&quot ; /> <id nullFlavor="NA" /> <code codeSystem="local" code="100.0400" displayName="HCT - HEMATOCRIT" /> <statusCode code="completed" /> <effectiveTime value="604894291460" /> <value unit="%" xsi:type="PQ" value="31.8" /> <interpretationCode codeSystem="local" code="*&quot ; /> <referenceRange> <observationRange> <text>36-46</text> </observationRange>&lt ;/referenceRange> </observation> </component> & lt;component> <observation moodCode="EVN" classCode=" OBS"> <templateId root="2.16.840.1.266871.10.20.22.4.2& quot; /> <id nullFlavor="NA" /> <code codeSystem="local" code="100.0550" displayName="MEAN CORPUSCULAR VOLUME" /> <statusCode code="completed&quot ; /> <effectiveTime value="421200961263" /> <value unit="UM3" xsi:type="PQ" value="95.5" /> <referenceRange> <observationRange> <text>80-100</text> </observationRange> </referenceRange> </observation> </component& gt; <component><observation moodCode="EVN" classCode=& quot;OBS"> <templateId root=" 2.16.840.1.571949.10.20.22.4.2" /> <id nullFlavor="NA& quot; /> <code codeSystem="local" code="100.0600" displayName="MEAN CORPUSCULAR HGB" /> <statusCode code= "completed" /> <effectiveTime value="739167643809& quot; /> <value unit="UUG" xsi:type="PQ" value="27.9" /> <referenceRange> < observationRange> <text>26-34</text> </ observationRange> </referenceRange> </observation&gt ; </component> <component> <observation moodCode ="EVN" classCode="OBS"> <templateId root=& quot;2.16.840.1.526054.10.20.22.4.2" /> <id nullFlavor=&quot ;NA" /> <code codeSystem="local" code=" 100.0650" displayName="MEAN CORPUSCULAR HGB CONC(MCHC" /> <statusCode code="completed" /> < effectiveTime value="537013458415" /> <value unit=&quot ;GM/DL" xsi:type="PQ" value="29.2" /> < interpretationCode codeSystem="local" code="*" /> <referenceRange> <observationRange> < text>31-37</text> </observationRange> </ referenceRange> </observation> </component> < component> <observation moodCode="EVN" classCode=" OBS"> <templateId root="2.16.840.1.544338.10.20.22.4.2& quot; /> <id nullFlavor="NA" /> <code codeSystem="local" code="100.0750" displayName="RDW STANDARD DEVIATION" /> <statusCode code="completed" /> <effectiveTime value="782403330215" /> & lt;value unit="FL" xsi:type="PQ" value="57.4" /&gt ; <interpretationCode codeSystem="local" code="*&quot ; /> <referenceRange> <observationRange> <text>36.9-50.2</text> </observationRange> </referenceRange> </observation> </component&gt ; <component> <observation moodCode="EVN" classCode="OBS"> <templateId root=" 2.16.840.1.377802.10.20.22.4.2" /> <id nullFlavor="NA& quot; /> <code codeSystem="local" code="100.0850& quot; displayName="PLT - PLATELET COUNT" /> < statusCode code="completed" /> <effectiveTime value=& quot;667660622173" /> <value unit="T/MM3" xsi:type=& quot;PQ" value="284" /><referenceRange> < observationRange> <text>130-400</text> & lt;/observationRange> </referenceRange> </ observation> </component> <component> < observation moodCode="EVN" classCode="OBS"> < templateId root="2.16.840.1.367903.10.20.22.4.2" /> < id nullFlavor="NA" /> <code codeSystem="local&quot ; code="100.0950" displayName="MEAN PLATELET VOLUME" /> <statusCode code="completed" /> < effectiveTime value="435470953090" /> <value unit="UM3&quot ; xsi:type="PQ" value="9.2" /> < interpretationCode codeSystem="local" code="*" /> <referenceRange> <observationRange> < text>9.4-12.4</text> </observationRange> < /referenceRange> </observation> </component> </ organizer> </entry> <entry> <organizer moodCode="EVN " classCode="BATTERY"> <templateId root=" 2.16.840.1.304628.10.20.22.4.1" /> <id nullFlavor="NA&quot ; /> <code codeSystem="local" code="LDIFFM" displayName="L100.0105" /> <statusCode code="completed "/> <component> <observation moodCode="EVN& quot; classCode="OBS"> <templateId root=" 2.16.840.1.288020.10.20.22.4.2" /> <id nullFlavor="NA& quot; /> <code codeSystem="local" code="100.1650& quot; displayName="NEUTROPHILS % (MANUAL)" /> < statusCode code="completed" /> <effectiveTime value=& quot;000468135813" /> <value unit="%" xsi: type="PQ" value="82.0" /> < interpretationCode codeSystem="local" code="*" /> <referenceRange> <observationRange> <text >33-66</text> </observationRange> </ referenceRange> </observation> </component> < component> <observation moodCode="EVN" classCode=" OBS"> <templateId root="2.16.840.1.567685.10.20.22.4.2& quot; /> <id nullFlavor="NA" /> <code codeSystem="local" code="100.1750" displayName="BAND NEUTROPHILS %" /> <statusCode code="completed& quot; /> <effectiveTime value="929904146360" /> <value unit="%" xsi:type="PQ" value=" 1.0" /> <referenceRange> <observationRange& gt; <text>0-6</text> </observationRange& gt; </referenceRange> </observation> </ component> <component> <observation moodCode="EVN&quot ; classCode="OBS"> <templateId root=" 2.16.840.1.253390.10.20.22.4.2" /> <id nullFlavor="NA& quot; /> <code codeSystem="local" code="100.1850& quot; displayName="LYMPHOCYTES % (MANUAL)" /> < statusCode code="completed" /> <effectiveTime value=& quot;273455574991" /> <value unit="%" xsi: type="PQ" value="12.0" /> < interpretationCode codeSystem="local" code="*" /> <referenceRange> <observationRange> <text>23- 45</text> </observationRange> </ referenceRange> </observation> </component> < component> <observation moodCode="EVN" classCode=" OBS"> <templateId root="2.16.840.1.882833.10.20.22.4.2& quot; /> <id nullFlavor="NA" /> <code codeSystem="local" code="100.1950" displayName=" MONOCYTES % (MANUAL)" /> <statusCode code=" completed" /> <effectiveTime value="273312225091" /> <value unit="%" xsi:type="PQ" value="5.0" /> <referenceRange> < observationRange> <text>0-9.0</text> < /observationRange> </referenceRange> </observation& gt; </component> <component> <observation moodCode="EVN" classCode="OBS"> <templateId root=& quot;2.16.840.1.902114.10.20.22.4.2" /> <id nullFlavor=&quot ;NA" /> <code codeSystem="local" code=" 100.2400" displayName="PROLYMPHOCYTES %" /> & lt;statusCode code="completed" /> <effectiveTime value= "870918908073" /> <value unit="T/MM3" xsi: type="PQ" value="7.6" /> <referenceRange> <observationRange> <text>1.8-7.7</text> </observationRange> </referenceRange> </ observation> </component> <component> < observation moodCode="EVN" classCode="OBS"> < templateId root="2.16.840.1.369036.10.20.22.4.2" /> < id nullFlavor="NA" /> <code codeSystem="local&quot ; code="100.2450" displayName="PLASMA CELLS %" /&gt ; <statusCode code="completed" /> < effectiveTime value="502644296561" /> <value unit=&quot ;T/MM3" xsi:type="PQ" value="0.1" /> < referenceRange> <observationRange> <text> NRG</text> </observationRange> </ referenceRange> </observation> </component> < component> <observation moodCode="EVN" classCode=" OBS"> <templateId root="[id number]& quot; /> <id nullFlavor="NA" /> <code codeSystem="local" code="100.2650" displayName=" NEUTROPHILS # (MANUAL)" /> <statusCode code="completed& quot; /> <effectiveTime value="[id number]" /> <value unit="T/MM3" xsi:type="PQ" value="0.5& quot; /> <referenceRange> <observationRange> <text>0-0.8</text> </observationRange&gt ; </referenceRange> </observation> </component> <component> <observation moodCode="EVN" classCode="OBS"> <templateId root=" [id number]" /> <id nullFlavor="NA& quot; /> <code codeSystem="local" code="100.4150& quot; displayName="NUCLEATED RED BLOOD CELLS" /> < statusCode code="completed" /> <effectiveTime value=& quot;893501380380" /> <value unit="" xsi:type=& quot;PQ" value="1" /> <referenceRange> <observationRange> <text>NRG</text> </observationRange> </referenceRange> </ observation> </component> <component> < observation moodCode="EVN" classCode="OBS"> < templateId root="2.16.840.1.920566.10.20.22.4.2" /> < id nullFlavor="NA" /><code codeSystem="local" code=& quot;100.4750" displayName="MACROCYTOSIS"/> < statusCode code="completed" /> <effectiveTime value=& quot;019581157165" /> <value unit="" xsi:type=& quot;PQ" value="1+" /> <referenceRange> <observationRange> <text>NRG</text> </observationRange> </referenceRange> </ observation> </component> <component> < observation moodCode="EVN" classCode="OBS"> < templateId root="2.16.840.1.123267.10.20.22.4.2" /> < id nullFlavor="NA" /> <code codeSystem="local&quot ; code="100.4850" displayName="POLYCHROMASIA" /> <statusCode code="completed" /> <effectiveTime value="329955820265" /> <value unit="" xsi: type="PQ" value="2+" /> <referenceRange> <observationRange> <text>NRG</text> </observationRange> </referenceRange> </ observation> </component> <component> < observation moodCode="EVN" classCode="OBS"> < templateId root="2.16.840.1.648686.10.20.22.4.2" /> <id nullFlavor="NA" /> <code codeSystem="local" code="100.5200" displayName="SPHEROCYTES" /> &lt ;statusCode code="completed" /> <effectiveTime value=& quot;806817992049" /> <value unit="" xsi:type=& quot;PQ" value="1+" /> <referenceRange> <observationRange> <text>NRG</text> & lt;/observationRange> </referenceRange> </ observation> </component><component> <observation moodCode="EVN" classCode="OBS"> <templateId root=& quot;2.16.840.1.710735.10.20.22.4.2" /> <id nullFlavor=&quot ;NA" /> <code codeSystem="local" code=" 100.2550" displayName="Lymphocytes # (Manual)" /> &lt ;statusCode code="completed" /> <effectiveTime value=& quot;427844140856" /> <value unit="T/MM3" xsi:type ="PQ" value="1.1" /> <referenceRange>< observationRange> <text>1-4.8</text> < /observationRange> </referenceRange> </observation& gt; </component> <component> <observation moodCode="EVN" classCode="OBS"> <templateId root="2.16.840.1.997455.10.20.22.4.2" /> <id nullFlavor ="NA" /> <code codeSystem="local" code=" 100.4565" displayName="LRBCMOR" /> <statusCode code="completed" /> <effectiveTime value=" 141064711839" /> <value unit="" xsi:type="PQ& quot; value="Abnormal" /> <referenceRange> <observationRange> <text>NRG</text> </observationRange> </referenceRange> </ observation> </component> </organizer> </entry> & lt;entry> <organizer moodCode="EVN" classCode="BATTERY& quot;> <templateId root="2.16.840.1.416885.10.20.22.4.1" /& gt; <id nullFlavor="NA" /> <code codeSystem=" local" code="LBGM" displayName="L900.0530" /> & lt;statusCode code="completed" /> <component> &lt ;observation moodCode="EVN" classCode="OBS"> &lt ;templateId root="2.16.840.1.227362.10.20.22.4.2" /> < id nullFlavor="NA" /> <code codeSystem="local" code=& quot;850.0100" displayName="Glucometer" /> < statusCode code="completed" /> <effectiveTime value=& quot;487312735058" /> <value unit="mg/dL" xsi:type ="PQ" value="132" /> <referenceRange> <observationRange> <text>65-110</text> </observationRange> </referenceRange> </ observation> </component> </organizer> </entry> & lt;entry> <organizer moodCode="EVN" classCode="BATTERY& quot;> <templateId root="2.16.840.1.058303.10.20.22.4.1" /& gt; <id nullFlavor="NA" /><code codeSystem="local& quot; code="LBGM" displayName="L900.0530" /> < statusCode code="completed" /> <component> < observation moodCode="EVN" classCode="OBS"> < templateId root="2.16.840.1.655089.10.20.22.4.2" /> < id nullFlavor="NA" /> <code codeSystem="local&quot ; code="850.0100" displayName="Glucometer" /> & lt;statusCode code="completed" /> <effectiveTime value= "576143522657" /> <value unit="mg/dL" xsi: type="PQ" value="169" /> <referenceRange> <observationRange> <text>65-110</text&gt ; </observationRange> </referenceRange> & lt;/observation> </component> </organizer> </entry&gt ; <entry> <organizer moodCode="EVN" classCode=" BATTERY"> <templateId root="2.16.840.1.817394.10.20.22.4.1& quot; /> <id nullFlavor="NA" /> <code codeSystem ="local" code="LBGM" displayName="L900.0530" /&gt ; <statusCode code="completed" /> <component> <observation moodCode="EVN" classCode="OBS"> <templateId root="2.16.840.1.778248.10.20.22.4.2" /> <id nullFlavor="NA" /> <code codeSystem=" local" code="850.0100" displayName="Glucometer" /> <statusCode code="completed" /> < effectiveTime value="380919722977" /> <value unit="mg/dL& quot; xsi:type="PQ" value="187" /> < referenceRange> <observationRange> <text> 65-110</text> </observationRange> </ referenceRange> </observation></component> </ organizer> </entry> <entry> <organizer moodCode="EVN " classCode="BATTERY"> <templateId root=" 2.16.840.1.120332.10.20.22.4.1" /> <id nullFlavor="NA&quot ; /> <code codeSystem="local" code="LBGM" displayName="L900.0530" /> <statusCode code="completed " /> <component> <observation moodCode="EVN& quot; classCode="OBS"> <templateId root=" 2.16.840.1.058916.10..22.4.2" /> <id nullFlavor="NA&quot ; /> <code codeSystem="local" code="850.0100&quot ; displayName="Glucometer" /> <statusCode code=" completed" /> <effectiveTime value="149954919314" /> <value unit="mg/dL" xsi:type="PQ" value=& quot;218" /> <referenceRange> < observationRange> <text>65-110</text> &lt ;/observationRange> </referenceRange> </observation& gt; </component> </organizer> </entry> <entry&gt ; <organizer moodCode="EVN" classCode="BATTERY"> <templateId root="2.16.840.1.654289.10.20.22.4.1" /> & lt;id nullFlavor="NA" /> <code codeSystem="local&quot ; code="LBGM" displayName="L900.0530" /> < statusCode code="completed" /> <component> < observation moodCode="EVN" classCode="OBS"> < templateId root="2.16.840.1.159075.10..22.4.2" /> < id nullFlavor="NA" /> <code codeSystem="local&quot ; code="850.0100" displayName="Glucometer" /> & lt;statusCode code="completed" /> <effectiveTime value=& quot;566520956356" /> <value unit="mg/dL" xsi:type ="PQ" value="155" /> <referenceRange> <observationRange> <text>65-110</text> </observationRange> </referenceRange> < /observation> </component> </organizer> </entry> <entry> <organizer moodCode="EVN" classCode="BATTERY& quot;> <templateId root="2.16.840.1.176685.10..22.4.1" /& gt; <idnullFlavor="NA" /> <code codeSystem=" local" code="LBGM" displayName="L900.0530" /> & lt;statusCode code="completed" /> <component> &lt ;observation moodCode="EVN" classCode="OBS"> &lt ;templateId root="2.16.840.1.713140.10.20.22.4.2" /> < id nullFlavor="NA" /> <code codeSystem="local&quot ; code="850.0100" displayName="Glucometer" /> & lt;statusCode code="completed" /> <effectiveTime value= "849339921036" /> <value unit="mg/dL" xsi: type="PQ" value="239" /> <referenceRange> <observationRange> <text>65-110</text&gt ; </observationRange> </referenceRange> & lt;/observation> </component> </organizer> </entry&gt ; <entry> <organizer moodCode="EVN" classCode=" BATTERY"> <templateId root="2.16.840.1.224421.10.20.22.4.1& quot; /> <id nullFlavor="NA" /> <code codeSystem ="local" code="LBGM" displayName="L900.0530" /&gt ; <statusCode code="completed" /> <component> & lt;observation moodCode="EVN" classCode="OBS"> & lt;templateId root="2.16.840.1.702332.10..22.4.2" /> &lt ;id nullFlavor="NA" /> <code codeSystem="local" code="850.0100" displayName="Glucometer" /> < statusCode code="completed" /> <effectiveTime value=& quot;931543676565" /> <value unit="mg/dL" xsi:type ="PQ" value="259" /> <referenceRange> <observationRange> <text>65-110</text> & lt;/observationRange> </referenceRange> </ observation> </component> </organizer> </entry> & lt;entry> <organizer moodCode="EVN" classCode="BATTERY& quot;> <templateId root="2.16.840.1.604754.10.20.22.4.1" /& gt; <id nullFlavor="NA" /> <code codeSystem=" local" code="LBGM" displayName="L900.0530" /> & lt;statusCode code="completed" /> <component> &lt ;observation moodCode="EVN" classCode="OBS"> &lt ;templateId root="2.16.840.1.066642.10.20.22.4.2" /> < id nullFlavor="NA" /> <code codeSystem="local&quot ; code="850.0100" displayName="Glucometer" /> < statusCode code="completed" /> <effectiveTime value=& quot;483645597725" /> <value unit="mg/dL" xsi:type ="PQ" value="125" /> <referenceRange> <observationRange> <text>65-110</text> </observationRange> </referenceRange> < /observation> </component> </organizer> </entry> <entry> <organizer moodCode="EVN" classCode="BATTERY& quot;> <templateId root="2.16.840.1.881622.10.20.22.4.1" /& gt; <id nullFlavor="NA" /> <code codeSystem=" local" code="LBMP" displayName="L200.0050" /> & lt;statusCode code="completed" /> <component> &lt ;observation moodCode="EVN" classCode="OBS"> &lt ;templateId root="2.16.840.1.691392.10.20.22.4.2" /> < id nullFlavor="NA" /> <code codeSystem="local&quot ; code="300.0400" displayName="FUNGAL CULTURE." /> <statusCode code="completed" /> <effectiveTime value="616997328909" /> <value unit="MG/DL" xsi:type="PQ" value="1.7" /> <interpretationCode codeSystem="local" code="" /> < referenceRange> <observationRange> <text> 0.7-1.2</text> </observationRange> </ referenceRange> </observation> </component> < component> <observation moodCode="EVN" classCode=" OBS"> <templateId root="2.16.840.1.668391.10.20.22.4.2& quot; /> <id nullFlavor="NA" /> <code codeSystem="local" code="300.0450" displayName="FUNGAL CULTURE, BLOOD." /> <statusCode code="completed" / > <effectiveTime value="552621737237" /> & lt;value unit="RATIO" xsi:type="PQ" value="32" /& gt; <interpretationCode codeSystem="local" code="*& quot; /> <referenceRange> <observationRange> <text>6-26</text> </observationRange> </referenceRange> </observation> </component&gt ; <component> <observation moodCode="EVN" classCode="OBS"> <templateId root=" 2.16.840.1.622497.10.20.22.4.2" /> <id nullFlavor="NA& quot; /> <code codeSystem="local" code="300.0100& quot; displayName="NA - Sodium" /> <statusCode code=& quot;completed" /> <effectiveTime value="283131340503& quot; /> <value unit="MEQ/L" xsi:type="PQ" value="142" /> <referenceRange> < observationRange> <text>134-144</text> & lt;/observationRange> </referenceRange> </observation> </component> <component> <observation moodCode= "EVN" classCode="OBS"> <templateId root=&quot ;2.16.840.1.813602.10.20.22.4.2" /> <id nullFlavor="NA& quot; /> <code codeSystem="local" code="300.0150& quot; displayName="Potassium" /> <statusCode code=&quot ;completed" /> <effectiveTime value="470910058786&quot ; /> <value unit="MEQ/L" xsi:type="PQ" value= "5.2" /> <interpretationCode codeSystem="local& quot; code="*" /> <referenceRange> < observationRange> <text>3.6-5</text> < /observationRange> </referenceRange> </observation> </component> <component> <observation moodCode=& quot;EVN" classCode="OBS"> <templateId root=" 2.16.840.1.734200.10.20.22.4.2" /> <id nullFlavor="NA& quot; /> <code codeSystem="local" code="300.0200& quot; displayName="Chloride" /> <statusCode code=" completed" /> <effectiveTime value="616704503023" /> <value unit="MEQ/L" xsi:type="PQ" value=& quot;109" /> <interpretationCode codeSystem="local" code= "*" /> <referenceRange> < observationRange> <text>98-107</text> </ observationRange> </referenceRange> </observation&gt ; </component> <component> <observation moodCode ="EVN" classCode="OBS"> <templateId root=& quot;2.16.840.1.825608.10.20.22.4.2" /> <id nullFlavor=&quot ;NA" /> <code codeSystem="local" code=" 300.0250" displayName="CO2 - Carbon Dioxide" /> < statusCode code="completed" /> <effectiveTime value=& quot;928762568086" /> <value unit="MEQ/L" xsi:type ="PQ" value="26" /> <referenceRange> <observationRange> <text>22-30</text> </observationRange> </referenceRange> </ observation> </component> <component> < observation moodCode="EVN" classCode="OBS"> < templateId root="2.16.840.1.514333.10.20.22.4.2" /> < id nullFlavor="NA" /> <code codeSystem="local&quot ; code="300.0300"displayName="Anion Gap" /> < statusCode code="completed" /> <effectiveTime value=" 070749150262" /> <value unit="MEQ/L" xsi:type=& quot;PQ" value="7" /> <referenceRange> <observationRange> <text>5-15</text> </observationRange> </referenceRange> </ observation> </component> <component> < observation moodCode="EVN" classCode="OBS"> < templateId root="2.16.840.1.847296.10.20.22.4.2" /> < id nullFlavor="NA"/> <code codeSystem="local&quot ; code="300.0350" displayName="BUN- Blood Urea Nitrogen" /& gt; <statusCode code="completed" /> < effectiveTime value="235432029612" /> <value unit=&quot ;MG/DL" xsi:type="PQ" value="54.0" /> < interpretationCode codeSystem="local" code="" /> <referenceRange> <observationRange> < text>7-17</text> </observationRange> </ referenceRange> </observation> </component> < component> <observation moodCode="EVN" classCode=" OBS"> <templateId root="2.16.840.1.771254.10.20.22.4.2& quot; /> <id nullFlavor="NA" /> <code codeSystem="local" code="300.0410" displayName=" Glomerular Filtration Rate" /> <statusCode code=" completed" /> <effectiveTime value="061936664256" /> <value unit="" xsi:type="PQ" value=" 30" /> <referenceRange> <observationRange& gt; <text>NRG</text> </observationRange> </referenceRange> </observation> </component> <component> <observationmoodCode="EVN" classCode ="OBS"> <templateId root=" 2.16.840.1.599832.10..22.4.2" /> <id nullFlavor="NA& quot; /> <code codeSystem="local" code="300.0500& quot; displayName="Glucose" /> <statusCode code=" completed" /> <effectiveTime value="853000410701" /> <value unit="MG/DL" xsi:type="PQ" value=& quot;110" /> <referenceRange> < observationRange> <text>65-110</text> &lt ;/observationRange> </referenceRange> </observation& gt; </component> <component> <observation moodCode="EVN" classCode="OBS"> <templateId root="2.16.840.1.573976.10..22.4.2" /> <id nullFlavor ="NA" /> <code codeSystem="local" code=" 300.2000" displayName="Osmolality,Calculated" /> < statusCode code="completed" /> <effectiveTime value=& quot;436716936363" /> <value unit="MOSM/KG" xsi: type="PQ" value="289" /> <interpretationCode codeSystem="local" code="*" /> < referenceRange> <observationRange> <text> 261-280</text> </observationRange> </ referenceRange> </observation> </component> < component> <observation moodCode="EVN" classCode=" OBS"> <templateId root="2.16.840.1.443385.10.20.22.4.2& quot; /> <id nullFlavor="NA" /> <code codeSystem="local" code="300.2200" displayName="Calcium " /> <statusCode code="completed" /> & lt;effectiveTime value="104900732420" /> <value unit=& quot;MG/DL" xsi:type="PQ" value="9.1" /> & lt;referenceRange> <observationRange> <text> 8.4-10.2</text> </observationRange> </ referenceRange> </observation> </component> < component> <observation moodCode="EVN" classCode=" OBS"> <templateId root="2.16.840.1.172963.10.20.22.4.2& quot; /> <id nullFlavor="NA" /> <code codeSystem="local" code="300.0095" displayName=" LICTERUS" /> <statusCode code="completed" />&lt ;effectiveTime value="443529927365" /> <value unit=& quot;" xsi:type="PQ" value="< 2" /> <referenceRange> <observationRange> <text >0-7</text> </observationRange> </referenceRange > </observation> </component> <component> <observation moodCode="EVN" classCode="OBS"> <templateId root="2.16.840.1.884127.10.20.22.4.2" /> <id nullFlavor="NA" /> <code codeSystem=& quot;local" code="300.0096" displayName="LHEMOLYSIS" /& gt; <statusCode code="completed" /> < effectiveTimevalue="166471912698" /> <value unit=" " xsi:type="PQ" value="< 15" /> < referenceRange> <observationRange> <text>0 -25</text> </observationRange> </ referenceRange> </observation> </component> < component> <observation moodCode="EVN" classCode=" OBS"> <templateId root="2.16.840.1.416044.10.20.22.4.2& quot; /> <id nullFlavor="NA" /> <code codeSystem="local" code="300.0097" displayName=" LTURBIDITY" /> <statusCode code="completed" /> <effectiveTime value="366805949304" /> < value unit="" xsi:type="PQ" value="< 20" /& gt; <referenceRange> <observationRange> <text>0-20</text> </observationRange> </referenceRange> </observation> </component> &lt ;/organizer> </entry> <entry> <organizer moodCode=" EVN" classCode="BATTERY"> <templateId root=" 2.16.840.1.850719.10.20.22.4.1" /> <id nullFlavor="NA&quot ; /> <code codeSystem="local" code="LCBC" displayName="L100.0050" /> <statusCode code="completed&quot ; /> <component> <observation moodCode="EVN" classCode="OBS"> <templateId root=" 2.16.840.1.547063.10.20.22.4.2" /> <id nullFlavor="NA& quot; /> <code codeSystem="local" code="100.0150& quot; displayName="WBC - WHITE BLOOD COUNT" /> < statusCode code="completed" /> <effectiveTime value=& quot;986649472661" /> <value unit="T/MM3" xsi:type ="PQ" value="13.5" /> <interpretationCode codeSystem="local" code="" /> < referenceRange> <observationRange> <text> 4.5-11.0</text> </observationRange> </ referenceRange> </observation> </component> < component> <observation moodCode="EVN" classCode=" OBS"> <templateId root="2.16.840.1.302300.10.20.22.4.2& quot; /> <id nullFlavor="NA" /> <code codeSystem="local" code="100.0250" displayName="RED BLOOD COUNT" /> <statusCode code="completed" /&gt ; <effectiveTime value="116270158976" /> < value unit="M/MM3" xsi:type="PQ" value="2.74" /&gt ;<interpretationCode codeSystem="local" code="*" /> <referenceRange> <observationRange> <text>4.00-5.20</text> </observationRange> </ referenceRange> </observation> </component> < component> <observation moodCode="EVN" classCode=" OBS"> <templateId root="2.16.840.1.259622.10.20.22.4.2& quot; /> <id nullFlavor="NA" /> <code codeSystem="local" code="100.0300" displayName="HGB - HEMOGLOBIN" /> <statusCode code="completed" /> <effectiveTime value="702741945435" /> < value unit="GM/DL" xsi:type="PQ" value="7.8" /&gt ; <interpretationCodecodeSystem="local" code="& quot; /> <referenceRange> <observationRange> <text>12-16</text> </observationRange&gt ; </referenceRange> </observation> </ component> <component> <observation moodCode="EVN& quot; classCode="OBS"> <templateId root=" 2.16.840.1.619885.10.20.22.4.2" /> <id nullFlavor="NA& quot; /> <code codeSystem="local" code="100.0400& quot; displayName="HCT - HEMATOCRIT" /> <statusCode code="completed" /> <effectiveTime value=" 803221040456" /> <value unit="%" xsi:type= "PQ" value="26.2" /> <interpretationCode codeSystem="local" code="" /> < referenceRange> <observationRange> <text> 36-46</text> </observationRange> </ referenceRange> </observation> </component> < component> <observation moodCode="EVN" classCode=" OBS"> <templateId root="2.16.840.1.006449.10.20.22.4.2& quot; /> <id nullFlavor="NA" /> <code codeSystem= "local" code="100.0550" displayName="MEAN CORPUSCULAR VOLUME" /> <statusCode code="completed" /> <effectiveTime value="572048853589" /> <value unit="UM3" xsi:type="PQ" value="95.6" /> <referenceRange> <observationRange> <text >80-100</text> </observationRange> </ referenceRange> </observation> </component> < component> <observation moodCode="EVN" classCode=" OBS"> <templateId root="2.16.840.1.650443.10.20.22.4.2& quot; /> <id nullFlavor="NA" /> <code codeSystem="local" code="100.0600" displayName="MEAN CORPUSCULAR HGB" /> <statusCode code="completed" / > <effectiveTime value="376537552931" /> & lt;value unit="UUG" xsi:type="PQ" value="28.5" /& gt; <referenceRange> <observationRange> < text>26-34</text> </observationRange> </ referenceRange> </observation> </component> < component> <observation moodCode="EVN" classCode=" OBS"> <templateId root="2.16.840.1.544725.10.20.22.4.2& quot; /> <id nullFlavor="NA" /> <code codeSystem="local" code="100.0650" displayName="MEAN CORPUSCULAR HGB CONC(MCHC" /> <statusCode code=" completed" /> <effectiveTime value="159015809715" /> <value unit="GM/DL" xsi:type="PQ" value=& quot;29.8" /> <interpretationCode codeSystem="local& quot; code="*" /> <referenceRange> < observationRange> <text>31-37</text> < /observationRange> </referenceRange> </observation& gt; </component> <component> <observation moodCode="EVN" classCode="OBS"> <templateId root="2.16.840.1.128126.10..22.4.2" /> <id nullFlavor ="NA" /> <code codeSystem="local" code=" 100.0750" displayName="RDW STANDARD DEVIATION" />< statusCode code="completed" /> <effectiveTime value=& quot;922464435702" /> <value unit="FL" xsi:type=& quot;PQ" value="61.0" /> <interpretationCode codeSystem="local" code="*" /> < referenceRange> <observationRange> <text> 36.9-50.2</text> </observationRange> </ referenceRange> </observation> </component> < component> <observation moodCode="EVN" classCode=" OBS"> <templateId root="2.16.840.1.571837.10.20.22.4.2& quot; /> <id nullFlavor="NA" /> <code codeSystem="local" code="100.0850" displayName="PLT - PLATELET COUNT" /> <statusCode code="completed" /& gt; <effectiveTime value="783116552059" /> &lt ;value unit="T/MM3" xsi:type="PQ" value="301" /&gt ; <referenceRange> <observationRange> <text>130-400</text> </observationRange> & lt;/referenceRange> </observation> </component> <component> <observation moodCode="EVN" classCode=& quot;OBS"> <templateId root=" 2.16.840.1.139533.10.20.22.4.2" /> <id nullFlavor="NA" /& gt; <code codeSystem="local" code="100.0950" displayName="MEAN PLATELET VOLUME" /> <statusCode code= "completed" /> <effectiveTime value="351483545462& quot; /> <value unit="UM3" xsi:type="PQ" value="9.4" /> <referenceRange> < observationRange> <text>9.4-12.4</text></ observationRange> </referenceRange> </observation&gt ; </component> <component> <observation moodCode ="EVN" classCode="OBS"> <templateId root=& quot;2.16.840.1.203934.10.20.22.4.2" /> <id nullFlavor=&quot ;NA" /> <code codeSystem="local" code=" 100.1050" displayName="NEUTROPHILS % (AUTO)" /> <statusCode code="completed" /> <effectiveTime value="826294721322" /> <value unit="%& quot; xsi:type="PQ" value="78.8" /> < interpretationCode codeSystem="local" code="*" /> <referenceRange> <observationRange> < text>33-66</text> </observationRange> </ referenceRange> </observation> </component> < component> <observation moodCode="EVN" classCode=" OBS"> <templateId root="2.16.840.1.746125.10.20.22.4.2& quot; /> <id nullFlavor="NA" /> <code codeSystem="local" code="100.1100" displayName=" LYMPHOCYTES % (AUTO)" /> <statusCode code=" completed" /> <effectiveTime value="538578464622" /> <value unit="%" xsi:type="PQ" value="11.4" /> <interpretationCode codeSystem=" local" code="*" /> <referenceRange> < observationRange> <text>23-45</text> < /observationRange> </referenceRange> </observation& gt; </component> <component> <observation moodCode="EVN" classCode="OBS"> <templateId root="2.16.840.1.199892.10.20.22.4.2" /> <id nullFlavor ="NA" /> <code codeSystem="local" code=" 100.1150" displayName="MONOCYTES % (AUTO)" /> <statusCode code="completed" /> <effectiveTime value="880147850682" /> <value unit="%& quot; xsi:type="PQ" value="8.7" /> < referenceRange> <observationRange> <text>0-9.0< /text> </observationRange> </referenceRange> </observation> </component> <component> <observation moodCode="EVN" classCode="OBS"> < templateId root="2.16.840.1.519074.10.20.22.4.2" /> < id nullFlavor="NA" /> <code codeSystem="local&quot ; code="100.1200" displayName="EOSINOPHILS % (AUTO)&quot ; /> <statusCode code="completed" /> < effectiveTime value="667390332964" /> <value unit=&quot ;%" xsi:type="PQ" value="0.6" /> & lt;referenceRange> <observationRange> <text>0- 4</text> </observationRange> </referenceRange > </observation> </component> <component> <observation moodCode="EVN" classCode="OBS"> <templateId root="[id number]" /> <id nullFlavor="NA" /> <code codeSystem="local& quot; code="100.1250" displayName="BASOPHILS % (AUTO)& quot; /> <statusCode code="completed" /> & lt;effectiveTime value="[id number]" /> <value unit=& quot;%" xsi:type="PQ" value="0.1" /> <referenceRange> <observationRange> <text& gt;0-2</text> </observationRange> </ referenceRange> </observation> </component> < component> <observation moodCode="EVN" classCode=" OBS"> <templateId root="[id number]" / > <id nullFlavor="NA" /> <code codeSystem="local" code="100.1275" displayName=" IMMATURE GRANULOCYTE % (AUTO)" /> <statusCode code=& quot;completed" /> <effectiveTime value="018960809640& quot; /> <value unit="%" xsi:type="PQ&quot ; value="0.4" /> <referenceRange> < observationRange> <text>0.0-0.5</text> & lt;/observationRange> </referenceRange> </ observation> </component> <component> < observation moodCode="EVN" classCode="OBS"> < templateId root="2.16.840.1.558812.10.20.22.4.2" /> < id nullFlavor="NA" /> <code codeSystem="local&quot ; code="100.1300" displayName="NEUTROPHILS # (AUTO)" /> <statusCode code="completed" /> < effectiveTime value="299712457385" /> <value unit=&quot ;T/MM3" xsi:type="PQ" value="10.6" /> < interpretationCode codeSystem="local" code="*" /> <referenceRange> <observationRange> < text>1.8-7.7</text> </observationRange> </ referenceRange> </observation> </component> < component> <observation moodCode="EVN" classCode=" OBS"> <templateId root="2.16.840.1.234500.10.20.22.4.2& quot; /> <id nullFlavor="NA" /> <code codeSystem="local" code="100.1350" displayName=" LYMPHOCYTES # (AUTO)" /> <statusCode code="completed& quot; /> <effectiveTime value="480229679468" /> &lt ;value unit="T/MM3" xsi:type="PQ" value="1.5" /&gt ; <referenceRange> <observationRange> <text>1-4.8</text> </observationRange> &lt ;/referenceRange> </observation> </component> & lt;component> <observation moodCode="EVN" classCode=&quot ;OBS"> <templateId root="2.16.840.1.809208.10.20.22.4.2 " /> <id nullFlavor="NA"/> <code codeSystem="local" code="100.1400" displayName=" MONOCYTES # (AUTO)" /> <statusCode code="completed&quot ; /> <effectiveTime value="987005083529" /> <value unit="T/MM3" xsi:type="PQ" value="1.2&quot ; /> <interpretationCode codeSystem="local"code="* " /> <referenceRange> <observationRange&gt ; <text>0-0.8</text> </observationRange> </referenceRange> </observation> </component> <component> <observation moodCode="EVN" classCode="OBS"> <templateId root=" 2.16.840.1.345003.10..22.4.2" /> <id nullFlavor="NA& quot; /> <code codeSystem="local" code="100.1450& quot; displayName="EOSINOPHILS # (AUTO)" /> < statusCode code="completed" /> <effectiveTime value=& quot;238158673077" /> <value unit="T/MM3" xsi:type ="PQ" value="0.1" /> <referenceRange> <observationRange> <text>0-0.5</text> </observationRange> </referenceRange> </ observation> </component> <component> < observation moodCode="EVN" classCode="OBS"> < templateId root="2.16.840.1.273217.10..22.4.2" /> < id nullFlavor="NA" /> <code codeSystem="local&quot ; code="100.1500" displayName="BASOPHILS # (AUTO)" /> & lt;statusCode code="completed" /> <effectiveTime value= "948341709464" /> <value unit="T/MM3" xsi: type="PQ" value="0.0" /> <referenceRange> <observationRange> <text>0-0.2</text&gt ; </observationRange> </referenceRange> & lt;/observation> </component> <component> < observation moodCode="EVN" classCode="OBS"> < templateId root="2.16.840.1.150496.10.20.22.4.2" /> < id nullFlavor="NA" /> <code codeSystem="local&quot ; code="100.1525" displayName="IMMATURE GRANULOCYTE # (AUTO)&quot ; /> <statusCode code="completed" /> < effectiveTime value="143133919434" /> <value unit=&quot ;T/MM3" xsi:type="PQ" value="0.06" /> < interpretationCode codeSystem="local" code="*" /> < referenceRange> <observationRange> <text> 0.00-0.03</text> </observationRange> </ referenceRange> </observation> </component> </ organizer> </entry> <entry> <organizer moodCode="EVN " classCode="BATTERY"> <templateId root=" 2.16.840.1.521075.10.20.22.4.1" /> <id nullFlavor="NA&quot ; /> <code codeSystem="local" code="LBGM" displayName="L900.0530" /> <statusCode code="completed " /> <component> <observation moodCode="EVN& quot; classCode="OBS"> <templateId root=" 2.16.840.1.843898.10.20.22.4.2" /> <id nullFlavor="NA& quot; /> <code codeSystem="local" code="850.0100& quot; displayName="Glucometer" /> <statusCode code=& quot;completed" /> <effectiveTime value="533943445377& quot; /> <value unit="mg/dL" xsi:type="PQ" value="200" /> <referenceRange> < observationRange> <text>65-110</text> </ observationRange> </referenceRange> </observation&gt ; </component> </organizer> </entry> <entry> <organizer moodCode="EVN" classCode="BATTERY"> <templateId root="2.16.840.1.878647.10.20.22.4.1" /> < id nullFlavor="NA" /> <code codeSystem="local" code="BGIVEPC" displayName="B600.798" /> < statusCode code="completed" /> <component> < observation moodCode="EVN" classCode="OBS"> < templateId root="2.16.840.1.226599.10.20.22.4.2" /> <id nullFlavor="NA" /> <code codeSystem="local" code="600.801" displayName="BGIVEPC1" /> < statusCode code="completed" /> <effectiveTime value=& quot;655006057613" /> <value unit="" xsi:type=& quot;PQ" value="1 Unit PC Issued" /> < referenceRange> <observationRange> <text> NRG</text> </observationRange> </ referenceRange> </observation> </component> </ organizer> </entry> <entry> <organizer moodCode="EVN " classCode="BATTERY"> <templateId root=" 2.16.840.1.958894.10.20.22.4.1" /> <id nullFlavor="NA&quot ; /> <code codeSystem="local" code="LHH" displayName="L100.0290" /> <statusCode code="completed " /> <component> <observation moodCode="EVN& quot; classCode="OBS"> <templateId root=" 2.16.840.1.047858.10.20.22.4.2" /> <id nullFlavor="NA& quot; /> <code codeSystem="local" code="100.0300& quot; displayName="HGB - HEMOGLOBIN" /> <statusCode code="completed" /> <effectiveTime value=" 155321461835" /> <value unit="GM/DL" xsi:type=& quot;PQ" value="6.6" /> <interpretationCode codeSystem="local" code="" /> < referenceRange> <observationRange> <text> 12-16</text> </observationRange> </referenceRange&gt ; </observation> </component> <component> <observation moodCode="EVN" classCode="OBS"> <templateId root="2.16.840.1.194565.10.20.22.4.2" /> <id nullFlavor="NA" /> <code codeSystem=" local" code="100.0400" displayName="HCT - HEMATOCRIT" / > <statusCode code="completed" /> < effectiveTime value="959537109191" /> <value unit=&quot ;%" xsi:type="PQ" value="22.5" /> & lt;interpretationCode codeSystem="local" code="" /> <referenceRange> <observationRange> <text >36-46</text> </observationRange> </ referenceRange> </observation> </component> </ organizer> </entry> <entry> <organizer moodCode="EVN " classCode="BATTERY"> <templateId root=" 2.16.840.1.198356.10.20.22.4.1" /> <id nullFlavor="NA&quot ; /> <code codeSystem="local" code="BTS" displayName="B100.0700" /> <statusCode code="completed " /> <component> <observation moodCode="EVN& quot; classCode="OBS"> <templateId root=" 2.16.840.1.079148.10.20.22.4.2" /> <id nullFlavor="NA& quot; /> <codecodeSystem="local" code="110.0950& quot; displayName="BLOOD TYPE" /> <statusCode code=" completed" /> <effectiveTime value="375775075723" /> <value unit="" xsi:type="PQ" value=" A Positive" /> <referenceRange> < observationRange> <text>NRG</text> </ observationRange> </referenceRange> </observation&gt ; </component> <component> <observation moodCode ="EVN" classCode="OBS"> <templateId root=& quot;2.16.840.1.134673.10.20.22.4.2" /> <id nullFlavor=&quot ;NA" /> <code codeSystem="local" code=" 200.0000" displayName="ANTIBODY SCREEN" /> < statusCode code="completed" /> <effectiveTime value=& quot;588557067341" /> <value unit="" xsi:type=& quot;PQ" value="NEGATIVE" /> <referenceRange> <observationRange> <text>NRG</text> </observationRange> </referenceRange> </ observation> </component> </organizer> </entry> & lt;entry> <organizer moodCode="EVN" classCode="BATTERY& quot;> <templateId root="2.16.840.1.963630.10.20.22.4.1" /& gt; <id nullFlavor="NA" /> <code codeSystem=" local" code="BTYPECON" displayName="B110.1099" /> <statusCode code="completed" /> <component> <observation moodCode="EVN"classCode="OBS"> <templateId root="2.16.840.1.701751.10.20.22.4.2" /> <id nullFlavor="NA" /> <code codeSystem=" local" code="110.1107" displayName="BBT5" /> <statusCode code="completed" /> <effectiveTime value="527283168580" /> <valueunit="" xsi: type="PQ" value="A Positive" /> < referenceRange> <observationRange> <text> NRG</text> </observationRange> </ referenceRange> </observation> </component> </ organizer> </entry> <entry> <organizer moodCode="EVN "classCode="BATTERY"> <templateId root=" 2.16.840.1.170279.10.20.22.4.1" /> <id nullFlavor="NA&quot ; /> <code codeSystem="local" code="UPCLEUK1" displayName="U500.0101" /> <statusCode code="completed " /> <component> <observation moodCode="EVN& quot; classCode="OBS"> <templateId root=" 2.16.840.1.301365.10..22.4.2" /> <id nullFlavor="NA& quot; /> <code codeSystem="local" code="UPCLEUK1& quot; displayName="U500.0101" /> <statusCode code=&quot ;completed" /> <effectiveTime value="904117228635&quot ; /> <value unit="" xsi:type="PQ" value=&quot ;TRANSFUSED PRODUCT: Packed RBC Leuko-Red 1st COUNT: 4" /> <referenceRange> <observationRange> <text>NRG</text> </observationRange> </ referenceRange> </observation> </component> </ organizer> </entry> <entry> <organizer moodCode="EVN& quot; classCode="BATTERY"> <templateId root=" 2.16.840.1.696288.10.20.22.4.1" /> <id nullFlavor="NA&quot ; /> <code codeSystem="local" code="BGIVEPC" displayName="B600.798" /> <statusCode code="completed&quot ; /> <component> <observation moodCode="EVN" classCode="OBS"> <templateId root=" 2.16.840.1.921136.10.20.22.4.2" /> <id nullFlavor="NA& quot; /> <code codeSystem="local" code="600.801& quot; displayName="BGIVEPC1" /> <statusCode code=" completed" /> <effectiveTime value="473979037745" /> <value unit="" xsi:type="PQ" value=" 1 Unit PC Issued" /> <referenceRange> < observationRange> <text>NRG</text> </ observationRange> </referenceRange> </observation&gt ; </component> </organizer> </entry> <entry> <organizer moodCode="EVN" classCode="BATTERY"> <templateId root="2.16.840.1.804478.10.20.22.4.1" /> < id nullFlavor="NA" /> <code codeSystem="local" code="LHGB" displayName="L100.0298" /> < statusCode code="completed" /> <component> < observation moodCode="EVN" classCode="OBS"> < templateId root="2.16.840.1.609915.10..22.4.2" /> < id nullFlavor="NA" /> <code codeSystem="local&quot ; code="100.0300" displayName="HGB - HEMOGLOBIN" /> <statusCode code="completed" /> <effectiveTime value="970202908047" /> <value unit="GM/DL" xsi: type="PQ" value="9.0" /><interpretationCode codeSystem ="local" code="" /> <referenceRange> <observationRange> <text>12-16</text>& lt;/observationRange> </referenceRange> </ observation> </component> </organizer> </entry> & lt;entry> <organizer moodCode="EVN" classCode="BATTERY& quot;> <templateId root="2.16.840.1.271182.10.20.22.4.1" /& gt; <id nullFlavor="NA" /> <code codeSystem=" local" code="LHCT" displayName="L100.0398" /> & lt;statusCode code="completed" /> <component> &lt ;observation moodCode="EVN" classCode="OBS"> &lt ;templateId root="2.16.840.1.734346.10.20.22.4.2" /> < id nullFlavor="NA" /> <code codeSystem="local&quot ; code="100.0400" displayName="HCT - HEMATOCRIT" /> <statusCode code="completed" /> <effectiveTime value="115155860419" /> <value unit="%& quot; xsi:type="PQ" value="29.1" /> < interpretationCode codeSystem="local" code="" /> <referenceRange> <observationRange> <text> 36-46</text> </observationRange> </ referenceRange> </observation> </component> </ organizer> </entry> <entry> <organizer moodCode="EVN " classCode="BATTERY"> <templateId root=" 2.16.840.1.454512.10.20.22.4.1" /> <id nullFlavor="NA&quot ; /> <code codeSystem="local" code="LBGM" displayName="L900.0530" /> <statusCode code="completed " /> <component> <observation moodCode="EVN& quot; classCode="OBS"> <templateId root=" 2.16.840.1.548079.10.20.22.4.2" /> <id nullFlavor="NA& quot; /> <code codeSystem="local" code="850.0100& quot; displayName="Glucometer" /> <statusCode code=& quot;completed" /> <effectiveTime value="799407292956& quot; /> <value unit="mg/dL" xsi:type="PQ" value="163" /> <referenceRange> < observationRange> <text>65-110</text> &lt ;/observationRange></referenceRange> </observation> & lt;/component> </organizer> </entry> <entry> < organizer moodCode="EVN" classCode="BATTERY"> < templateId root="2.16.840.1.363240.10.20.22.4.1" /> <id nullFlavor="NA" /> <code codeSystem="local" code= "LBGM" displayName="L900.0530" /> <statusCode code="completed" /> <component> <observation moodCode="EVN" classCode="OBS"> < templateIdroot="2.16.840.1.503758.10.20.22.4.2" /> <id nullFlavor="NA" /> <code codeSystem="local" code="850.0100" displayName="Glucometer" /> < statusCode code="completed" /> <effectiveTime value=& quot;709933028939" /> <value unit="mg/dL" xsi:type ="PQ" value="139" /> <referenceRange> <observationRange> <text>65-110</text> </observationRange> </referenceRange> </ observation> </component> </organizer> </entry> & lt;entry> <organizer moodCode="EVN" classCode="BATTERY& quot;> <templateId root="2.16.840.1.881800.10.20.22.4.1" /& gt; <id nullFlavor="NA" /> <code codeSystem=" local" code="LCBC" displayName="L100.0050" /> & lt;statusCode code="completed" /> <component> &lt ;observation moodCode="EVN" classCode="OBS"> &lt ;templateId root="2.16.840.1.416180.10.20.22.4.2" /> < id nullFlavor="NA" /> <code codeSystem="local&quot ; code="100.0150" displayName="WBC - WHITE BLOOD COUNT" /&gt ; <statusCode code="completed" /> < effectiveTime value="731057105686" /> <value unit=&quot ;T/MM3" xsi:type="PQ" value="9.8" /> < referenceRange> <observationRange> <text>4.5-11.0& lt;/text> </observationRange> </referenceRange& gt; </observation> </component> <component> <observation moodCode="EVN" classCode="OBS"> <templateId root="2.16.840.1.860849.10.20.22.4.2" /> <id nullFlavor="NA" /> <code codeSystem=&quot ;local" code="100.0250" displayName="RED BLOOD COUNT" / > <statusCode code="completed" /> < effectiveTime value="250588657419" /> <value unit=&quot ;M/MM3" xsi:type="PQ" value="3.12" /> < interpretationCode codeSystem="local" code="*" /> <referenceRange> <observationRange> < text>4.00-5.20</text> </observationRange> &lt ;/referenceRange> </observation> </component> & lt;component> <observation moodCode="EVN" classCode=&quot ;OBS"> <templateId root="2.16.840.1.024745.10.20.22.4.2 " /> <id nullFlavor="NA" /> <code codeSystem="local" code="100.0300" displayName="HGB - HEMOGLOBIN" /> <statusCode code="completed" /> <effectiveTime value="068989312243" /> < value unit="GM/DL" xsi:type="PQ" value="8.9" /&gt ; <interpretationCode codeSystem="local" code="*" /> <referenceRange> <observationRange> <text>12-16</text> </observationRange> & lt;/referenceRange> </observation> </component> <component> <observation moodCode="EVN" classCode=& quot;OBS"> <templateId root=" 2.16.840.1.577906.10.20.22.4.2" /> <id nullFlavor="NA& quot; /> <code codeSystem="local" code="100.0400& quot; displayName="HCT - HEMATOCRIT" /> <statusCode code="completed" /> <effectiveTime value=" 079427795208" /> <value unit="%" xsi:type= "PQ" value="29.3" /> <interpretationCode codeSystem="local" code="*" /> < referenceRange> <observationRange> <text> 36-46</text> </observationRange> </ referenceRange> </observation> </component> < component> <observation moodCode="EVN" classCode=" OBS"> <templateId root="2.16.840.1.727153.10..22.4.2& quot; /> <id nullFlavor="NA" /> <code codeSystem="local" code="100.0550" displayName="MEAN CORPUSCULAR VOLUME" /> <statusCode code="completed&quot ; /> <effectiveTime value="050445120985" /> < value unit="UM3" xsi:type="PQ" value="93.9" /> <referenceRange> <observationRange> <text>80-100</text> </observationRange> & lt;/referenceRange> </observation> </component> <component> <observation moodCode="EVN" classCode=& quot;OBS"> <templateId root=" 2.16.840.1.942449.10..22.4.2" /> <id nullFlavor="NA& quot; /> <code codeSystem="local" code="100.0600& quot; displayName="MEAN CORPUSCULAR HGB" /> < statusCode code="completed" /> <effectiveTime value=& quot;503247482534" /> <value unit="UUG" xsi:type=& quot;PQ" value="28.5" /> <referenceRange> <observationRange> <text>26-34</text> </observationRange> </referenceRange> </ observation> </component> <component> < observation moodCode="EVN" classCode="OBS"> < templateId root="2.16.840.1.168782.10.20.22.4.2" /> < id nullFlavor="NA" /> <code codeSystem="local" code="100.0650" displayName="MEAN CORPUSCULAR HGB CONC([facility]&quot ; /> <statusCode code="completed" /> < effectiveTime value="412546650645" /> <value unit=&quot ;GM/DL" xsi:type="PQ" value="30.4" /> < interpretationCode codeSystem="local" code="*" /> <referenceRange> <observationRange> <text& gt;31-37</text> </observationRange> </ referenceRange> </observation> </component> < component> <observation moodCode="EVN" classCode=" OBS"> <templateId root="2.16.840.1.765901.10.20.22.4.2& quot; /> <id nullFlavor="NA" /> <code codeSystem="local" code="100.0750" displayName="RDW STANDARD DEVIATION" /> <statusCode code="completed&quot ; /> <effectiveTime value="742846426400" /> <value unit="FL" xsi:type="PQ" value="57.2" / > <interpretationCode codeSystem="local" code="*& quot; /> <referenceRange> <observationRange> <text>36.9-50.2</text> </ observationRange> </referenceRange> </observation&gt ; </component> <component> <observation moodCode ="EVN" classCode="OBS"> <templateId root=& quot;2.16.840.1.022138.10.20.22.4.2" /> <id nullFlavor=&quot ;NA" /> <code codeSystem="local" code=" 100.0850" displayName="PLT - PLATELET COUNT" /> < statusCode code="completed" /> <effectiveTime value=& quot;174295257279" /> <value unit="T/MM3" xsi:type ="PQ" value="221" /> <referenceRange> <observationRange> <text>130-400</text> </observationRange> </referenceRange> &lt ;/observation> </component> <component> < observation moodCode="EVN" classCode="OBS"> < templateId root="2.16.840.1.804591.10.20.22.4.2" /> < id nullFlavor="NA" /> <code codeSystem="local&quot ; code="100.0950" displayName="MEAN PLATELET VOLUME" /> <statusCode code="completed" /> < effectiveTime value="875522462644" /> <value unit=&quot ;UM3" xsi:type="PQ" value="9.0" /> < interpretationCode codeSystem="local" code="*" /> <referenceRange> <observationRange> < text>9.4-12.4</text> </observationRange> </ referenceRange> </observation> </component> < component> <observation moodCode="EVN" classCode=" OBS"> <templateId root="2.16.840.1.178294.10.20.22.4.2& quot; /> <id nullFlavor="NA" /> <code codeSystem= "local" code="100.1050" displayName="NEUTROPHILS &# 37; (AUTO)" /> <statusCode code="completed" /> <effectiveTime value="160926916500" /> < value unit="%" xsi:type="PQ" value="80.1" /> <interpretationCode codeSystem="local" code="*& quot; /> <referenceRange> <observationRange> <text>33-66</text> </observationRange&gt ; </referenceRange> </observation> </ component> <component> <observation moodCode="EVN& quot; classCode="OBS"> <templateId root=" 2.16.840.1.678387.10.20.22.4.2" /> <id nullFlavor="NA& quot; /> <code codeSystem="local" code="100.1100& quot; displayName="LYMPHOCYTES % (AUTO)" /> < statusCode code="completed" /> <effectiveTime value=& quot;158793235181" /> <value unit="%" xsi: type="PQ" value="10.6" /> < interpretationCode codeSystem="local" code="*" /> <referenceRange> <observationRange> <text&gt ;23-45</text> </observationRange> </ referenceRange> </observation> </component>< component> <observation moodCode="EVN" classCode=" OBS"> <templateId root="2.16.840.1.578509.10.20.22.4.2" /> <id nullFlavor="NA" /> <code codeSystem="local" code="100.1150" displayName=" MONOCYTES % (AUTO)" /> <statusCode code=" completed" /> <effectiveTime value="775168013112" /> <value unit="%" xsi:type="PQ" value="7.9" /> <referenceRange> < observationRange> <text>0-9.0</text> < /observationRange> </referenceRange> </observation& gt; </component> <component> <observation moodCode=& quot;EVN" classCode="OBS"> <templateId root=" 2.16.840.1.228911.10.20.22.4.2" /> <id nullFlavor="NA& quot; /> <code codeSystem="local" code="100.1200& quot; displayName="EOSINOPHILS % (AUTO)" /> < statusCode code="completed" /> <effectiveTime value=& quot;329809385339" /> <value unit="%" xsi: type="PQ" value="0.9" /> <referenceRange> <observationRange> <text>0-4</text> </observationRange> </referenceRange> &lt ;/observation> </component> <component> < observation moodCode="EVN" classCode="OBS"> < templateId root="2.16.840.1.319363.10.20.22.4.2" /> < id nullFlavor="NA" /> <code codeSystem="local&quot ; code="100.1250" displayName="BASOPHILS % (AUTO)" / > <statusCode code="completed" /> < effectiveTime value="528138347392" /> <value unit=&quot ;%" xsi:type="PQ" value="0.2" /> & lt;referenceRange> <observationRange> <text& gt;0-2</text> </observationRange> </ referenceRange> </observation> </component> < component> <observation moodCode="EVN" classCode=" OBS"> <templateId root="2.16.840.1.388061.10.20.22.4.2& quot; /> <id nullFlavor="NA" /> <code codeSystem="local" code="100.1275" displayName=" IMMATURE GRANULOCYTE % (AUTO)" /> <statusCode code=& quot;completed" /> <effectiveTime value="163468536053& quot; /> <value unit="%" xsi:type="PQ&quot ; value="0.3" /> <referenceRange> < observationRange> <text>0.0-0.5</text> </ observationRange> </referenceRange> </observation&gt ; </component> <component> <observation moodCode ="EVN" classCode="OBS"> <templateId root=& quot;2.16.840.1.344425.10.20.22.4.2" /><id nullFlavor="NA" /> <code codeSystem="local" code="100.1300" displayName="NEUTROPHILS # (AUTO)" /> <statusCode code= "completed" /> <effectiveTime value="527725618653& quot; /> <valueunit="T/MM3" xsi:type="PQ" value="7.8" /> <interpretationCode codeSystem=" local" code="*" /> <referenceRange> < observationRange> <text>1.8-7.7</text> & lt;/observationRange> </referenceRange> </ observation> </component> <component> < observation moodCode="EVN" classCode="OBS"> < templateId root="2.16.840.1.482071.10.20.22.4.2" /> < id nullFlavor="NA" /> <code codeSystem="local&quot ; code="100.1350" displayName="LYMPHOCYTES # (AUTO)" /> <statusCode code="completed" /> <effectiveTime value="858690463814" /> <value unit="T/MM3" xsi:type="PQ" value="1.0" /> <referenceRange& gt; <observationRange> <text>1-4.8</text& gt; </observationRange> </referenceRange> </observation> </component> <component> &lt ;observation moodCode="EVN" classCode="OBS"> &lt ;templateId root="2.16.840.1.645982.10.20.22.4.2" /> < id nullFlavor="NA" /> <code codeSystem="local&quot ; code="100.1400" displayName="MONOCYTES # (AUTO)" /> <statusCode code="completed" /> < effectiveTime value="724593478156" /> <value unit=&quot ;T/MM3" xsi:type="PQ" value="0.8" /> < referenceRange> <observationRange> <text> 0-0.8</text> </observationRange></referenceRange> </observation> </component> <component> & lt;observation moodCode="EVN" classCode="OBS"> & lt;templateId root="2.16.840.1.473416.10.20.22.4.2" /> &lt ;id nullFlavor="NA" /> <code codeSystem="local&quot ; code="100.1450" displayName="EOSINOPHILS # (AUTO)" /> <statusCode code="completed" /> < effectiveTime value="609548452708" /> <value unit=&quot ;T/MM3" xsi:type="PQ" value="0.1" /> < referenceRange> <observationRange> <text> 0-0.5</text> </observationRange> </ referenceRange> </observation> </component> < component> <observation moodCode="EVN" classCode=" OBS"> <templateId root="2.16.840.1.844197.10.20.22.4.2& quot; /> <id nullFlavor="NA" /> <code codeSystem= "local" code="100.1500" displayName="BASOPHILS # (AUTO) " /> <statusCode code="completed" /> & lt;effectiveTime value="805059217898" /> <value unit=& quot;T/MM3" xsi:type="PQ" value="0.0" /> & lt;referenceRange> <observationRange> <text>0-0.2 </text> </observationRange> </referenceRange& gt; </observation> </component> <component> <observation moodCode="EVN" classCode="OBS"> <templateId root="[id number]" /> <id nullFlavor="NA" /> <codecodeSystem=" local" code="100.1525" displayName="IMMATURE GRANULOCYTE # ( AUTO)" /> <statusCode code="completed" /> <effectiveTime value="[id number]" /> <value unit="T/MM3" xsi:type="PQ" value="0.03" /> <referenceRange> <observationRange> <text >0.00-0.03</text> </observationRange> </ referenceRange> </observation> </component> </ organizer> </entry> <entry> <organizer moodCode="EVN " classCode="BATTERY"> <templateId root=" [id number]" /> <id nullFlavor="NA&quot ; /> <code codeSystem="local" code="LBMP" displayName="L200.0050" /> <statusCode code="completed " /> <component> <observation moodCode="EVN& quot; classCode="OBS"> <templateId root=" 2.16.840.1.511720.10.20.22.4.2" /> <id nullFlavor="NA& quot; /> <code codeSystem="local" code="300.0400& quot; displayName="FUNGAL CULTURE." /> <statusCode code ="completed" /> <effectiveTime value="558329622271 " /> <value unit="MG/DL" xsi:type="PQ" value="1.1" /> <interpretationCode codeSystem=" local" code="" /> <referenceRange> <observationRange> <text>0.7-1.2</text> </observationRange> </referenceRange> </ observation> </component> <component> < observation moodCode="EVN" classCode="OBS"> < templateId root="2.16.840.1.516138.10..22.4.2" /> < id nullFlavor="NA" /> <code codeSystem="local&quot ; code="300.0450" displayName="FUNGAL CULTURE, BLOOD." /&gt ; <statusCode code="completed" /> < effectiveTime value="196688764101" /> <value unit=&quot ;RATIO" xsi:type="PQ" value="37" /> < interpretationCode codeSystem="local" code="*" /> <referenceRange> <observationRange> < text>6-26</text> </observationRange> </ referenceRange> </observation> </component> < component> <observation moodCode="EVN" classCode=" OBS"> <templateId root="2.16.840.1.123320.10.20.22.4.2& quot; /> <id nullFlavor="NA" /> <code codeSystem="local" code="300.0100" displayName="NA - Sodium" /> <statusCode code="completed" /> <effectiveTime value="304306738004" /> <value unit="MEQ/L" xsi:type="PQ" value="142" /> <referenceRange> <observationRange> &lt ;text>134-144</text> </observationRange> < /referenceRange> </observation> </component> &lt ;component> <observation moodCode="EVN" classCode=" OBS"> <templateId root="2.16.840.1.655105.10.20.22.4.2& quot; /> <id nullFlavor="NA" /> <code codeSystem="local" code="300.0150"displayName=" Potassium" /> <statusCode code="completed" /> <effectiveTime value="605629178102" /> <value unit="MEQ/L" xsi:type="PQ" value="5.4" /> <interpretationCode codeSystem="local" code="*" /&gt ; <referenceRange> <observationRange> <text>3.6-5</text> </observationRange> </referenceRange> </observation> </component> <component> <observation moodCode="EVN" classCode= "OBS"> <templateId root=" 2.16.840.1.605156.10.20.22.4.2" /> <id nullFlavor="NA& quot; /> <code codeSystem="local" code="300.0200" displayName="Chloride" /> <statusCode code=" completed" /> <effectiveTime value="807400234382" /> <value unit="MEQ/L" xsi:type="PQ" value=& quot;110" /> <interpretationCode codeSystem="local&quot ; code="*" /> <referenceRange> < observationRange> <text>98-107</text> &lt ;/observationRange> </referenceRange> </observation& gt; </component> <component> <observation moodCode="EVN" classCode="OBS"> <templateId root="2.16.840.1.394016.10.20.22.4.2" /> <id nullFlavor ="NA" /> <code codeSystem="local" code=" 300.0250" displayName="CO2 - Carbon Dioxide" /> < statusCode code="completed" /> <effectiveTime value=& quot;265025872485" /> <value unit="MEQ/L" xsi:type ="PQ" value="24" /> <referenceRange> <observationRange> <text>22-30</text> </observationRange> </referenceRange> </ observation> </component> <component> < observation moodCode="EVN" classCode="OBS"> < templateId root="2.16.840.1.362738.10.20.22.4.2" /> < id nullFlavor="NA" /> <code codeSystem="local&quot ; code="300.0300" displayName="Anion Gap" /> &lt ;statusCode code="completed" /> <effectiveTime value=& quot;488916240171" /> <value unit="MEQ/L" xsi:type ="PQ" value="8" /> <referenceRange> <observationRange> <text>5-15</text> </observationRange> </referenceRange> </ observation> </component> <component> < observation moodCode="EVN" classCode="OBS"> < templateId root="2.16.840.1.914709.10.20.22.4.2" /> < id nullFlavor="NA" /> <code codeSystem="local&quot ; code="300.0350" displayName="BUN - Blood Urea Nitrogen" /& gt; <statusCode code="completed" /> < effectiveTime value="136158173443" /> <value unit=&quot ;MG/DL" xsi:type="PQ" value="41.0" /> < interpretationCode codeSystem="local" code="*" /> <referenceRange> <observationRange> < text>7-17</text> </observationRange> </ referenceRange> </observation> </component> < component> <observation moodCode="EVN" classCode=" OBS"> <templateId root="2.16.840.1.418859.10.20.22.4.2& quot; /> <id nullFlavor="NA" /> <code codeSystem="local" code="300.0410" displayName=" Glomerular Filtration Rate" /> <statusCode code=" completed" /> <effectiveTime value="263709152796" /&gt ; <value unit="" xsi:type="PQ" value="49& quot; /> <referenceRange> <observationRange> <text>NRG</text> </observationRange> </referenceRange> </observation> </component> <component> <observation moodCode="EVN" classCode=& quot;OBS"> <templateId root=" 2.16.840.1.683292.10.20.22.4.2" /> <id nullFlavor="NA& quot; /> <code codeSystem="local" code="300.0500& quot; displayName="Glucose" /> <statusCode code=" completed" /> <effectiveTime value="056048671202" /> <value unit="MG/DL" xsi:type="PQ" value=& quot;132" /> <interpretationCode codeSystem="local&quot ; code="*" /> <referenceRange> < observationRange> <text>65-110</text> &lt ;/observationRange> </referenceRange> </observation& gt; </component> <component> <observation moodCode="EVN" classCode="OBS"> <templateId root="2.16.840.1.921022.10.20.22.4.2" /> <id nullFlavor ="NA" /> <code codeSystem="local" code=" 300.2000" displayName="Osmolality,Calculated" />< statusCode code="completed" /> <effectiveTime value=& quot;751411324960" /> <value unit="MOSM/KG" xsi: type="PQ" value="285"/> <interpretationCode codeSystem="local" code="*" /><referenceRange> <observationRange> <text>261-280</text> </observationRange> </referenceRange> &lt ;/observation> </component> <component> < observation moodCode="EVN" classCode="OBS"> < templateId root="2.16.840.1.294400.10.20.22.4.2" /> < id nullFlavor="NA" /> <code codeSystem="local&quot ; code="300.2200" displayName="Calcium" /> < statusCode code="completed" /> <effectiveTime value=& quot;447635788421" /> <value unit="MG/DL" xsi:type ="PQ" value="8.3" /> <interpretationCode codeSystem="local" code="" /> < referenceRange> <observationRange> <text>8.4-10.2& lt;/text> </observationRange> </referenceRange& gt; </observation> </component> <component> <observation moodCode="EVN" classCode="OBS"> <templateId root="2.16.840.1.858568.10.20.22.4.2" /> & lt;id nullFlavor="NA" /> <code codeSystem="local& quot; code="300.0095" displayName="LICTERUS" /> <statusCode code="completed" /> <effectiveTime value ="628385436463" /> <value unit="" xsi:type=& quot;PQ" value="< 2" /> <referenceRange&gt ; <observationRange> <text>0-7</text> </observationRange> </referenceRange> & lt;/observation> </component> <component> < observation moodCode="EVN" classCode="OBS"> < templateId root="2.16.840.1.127534.10..22.4.2" /> < id nullFlavor="NA" /> <code codeSystem="local" code="300.0096" displayName="LHEMOLYSIS" /> < statusCode code="completed" /> <effectiveTime value=& quot;686858857460" /> <value unit="" xsi:type=& quot;PQ" value="< 15" /> <referenceRange&gt ; <observationRange> <text>0-25</text> </observationRange> </referenceRange> </ observation> </component> <component> < observation moodCode="EVN" classCode="OBS"> < templateId root="2.16.840.1.450353.10.20.22.4.2" /> < id nullFlavor="NA" /> <code codeSystem="local&quot ; code="300.0097" displayName="LTURBIDITY" /> < statusCode code="completed" /> <effectiveTime value=& quot;790739734052" /> <value unit="" xsi:type=& quot;PQ" value="< 20" /> <referenceRange&gt ; <observationRange> <text>0-20</text&gt ; </observationRange> </referenceRange> & lt;/observation> </component> </organizer> </entry&gt ; <entry> <organizer moodCode="EVN" classCode=" BATTERY"> <templateId root="2.16.840.1.996619.10.20.22.4.1& quot; /> <id nullFlavor="NA" /> <code codeSystem ="local" code="BGIVEPC" displayName="B600.798" /& gt; <statusCode code="completed" /> <component> <observation moodCode="EVN" classCode="OBS"> <templateId root="2.16.840.1.825711.10.20.22.4.2" /> <id nullFlavor="NA" /> <code codeSystem=& quot;local" code="600.801" displayName="BGIVEPC1" /&gt ; <statusCode code="completed" /> < effectiveTime value="348760246892" /> <value unit=" " xsi:type="PQ" value="1 Unit PC Issued" /> <referenceRange> <observationRange> < text>NRG</text> </observationRange> </ referenceRange> </observation> </component> </ organizer> </entry> <entry> <organizermoodCode="EVN& quot; classCode="BATTERY"> <templateId root=" 2.16.840.1.824230.10.20.22.4.1" /> <id nullFlavor="NA&quot ; /> <code codeSystem="local" code="LBGM" displayName="L900.0530" /> <statusCode code="completed " /> <component> <observation moodCode="EVN& quot; classCode="OBS"> <templateId root=" 2.16.840.1.493350.10.20.22.4.2" /> <id nullFlavor="NA& quot; /> <code codeSystem="local" code="850.0100& quot; displayName="Glucometer" /> <statusCode code=& quot;completed" /> <effectiveTime value="985083910245& quot; /> <value unit="mg/dL" xsi:type="PQ" value="183" /> <referenceRange> < observationRange> <text>65-110</text> </ observationRange> </referenceRange> </observation&gt ; </component> </organizer> </entry> <entry> <organizer moodCode="EVN" classCode="BATTERY"> <templateId root="2.16.840.1.748974.10.20.22.4.1" /> < id nullFlavor="NA" /> <code codeSystem="local" code="LBGM" displayName="L900.0530" /> < statusCode code="completed" /> <component> < observation moodCode="EVN" classCode="OBS"> < templateId root="2.16.840.1.388184.10.20.22.4.2" /> <id nullFlavor="NA" /> <code codeSystem="local" code="850.0100" displayName="Glucometer" /> < statusCode code="completed" /> <effectiveTime value=& quot;188675734629" /> <value unit="mg/dL" xsi:type ="PQ" value="168" /> <referenceRange> <observationRange> <text>65-110</text> </observationRange> </referenceRange> </ observation> </component> </organizer> </entry> &lt ;entry> <organizer moodCode="EVN" classCode="BATTERY& quot;> <templateId root="2.16.840.1.026316.10.20.22.4.1" /& gt; <id nullFlavor="NA" /> <code codeSystem=" local" code="LHGBPOST" displayName="L100.0299" /> <statusCode code="completed" /> <component> <observation moodCode="EVN" classCode="OBS"> <templateId root="2.16.840.1.222993.10.20.22.4.2" /> <id nullFlavor="NA" /> <code codeSystem=" local" code="100.0300" displayName="HGB - HEMOGLOBIN" / > <statusCode code="completed" /> < effectiveTime value="238194684599" /> <value unit=&quot ;GM/DL" xsi:type="PQ" value="9.3" /> < interpretationCode codeSystem="local" code="*" /> <referenceRange> <observationRange> < text>12-16</text> </observationRange> </ referenceRange> </observation> </component> </ organizer></entry> <entry> <organizer moodCode="EVN& quot; classCode="BATTERY"> <templateId root=" 2.16.840.1.584887.10.20.22.4.1" /> <id nullFlavor="NA&quot ; /> <code codeSystem="local" code="LBGM" displayName="L900.0530" /> <statusCode code="completed " /> <component> <observation moodCode="EVN& quot; classCode="OBS"> <templateId root=" 2.16.840.1.213079.10.20.22.4.2" /> <id nullFlavor="NA& quot; /> <code codeSystem="local" code="850.0100& quot; displayName="Glucometer" /> <statusCode code=& quot;completed" /> <effectiveTime value="389894111480& quot; /> <value unit="mg/dL" xsi:type="PQ" value="158" /> <referenceRange> < observationRange> <text>65-110</text> </ observationRange> </referenceRange> </observation&gt ; </component> </organizer> </entry><entry> <organizer moodCode="EVN" classCode="BATTERY"> & lt;templateId root="2.16.840.1.269779.10.20.22.4.1" /> <id nullFlavor="NA"/> <code codeSystem="local" code=& quot;LBGM" displayName="L900.0530" /> <statusCode code ="completed" /> <component> <observation moodCode="EVN" classCode="OBS"> <templateId root="2.16.840.1.538045.04.03.22.4.2" /> <id nullFlavor ="NA" /> <code codeSystem="local" code=" 850.0100" displayName="Glucometer" /> <statusCode code="completed" /> <effectiveTime value=" 365199617991" /> <value unit="mg/dL" xsi:type=& quot;PQ" value="158" /> <referenceRange> <observationRange> <text>65-110</text> </observationRange> </referenceRange> </ observation> </component> </organizer> </entry> & lt;entry> <organizer moodCode="EVN" classCode="BATTERY&quot ;> <templateId root="2.16.840.1.222764...22.4.1" /> <id nullFlavor="NA" /> <code codeSystem=" local" code="LCBC" displayName="L100.0050" /> & lt;statusCode code="completed" /> <component> &lt ;observation moodCode="EVN" classCode="OBS"> &lt ;templateId root="2.16.840.1.958132.04.03.22.4.2" /> < id nullFlavor="NA" /> <code codeSystem="local&quot ; code="100.0150" displayName="WBC - WHITE BLOOD COUNT" /&gt ; <statusCode code="completed" /> < effectiveTime value="237313671398" /> <value unit=&quot ;T/MM3" xsi:type="PQ" value="6.3" /> < referenceRange> <observationRange> <text> 4.5-11.0</text> </observationRange> </ referenceRange></observation> </component> < component> <observation moodCode="EVN" classCode=" OBS"> <templateId root="2.16.840.1.175840.10.20.22.4.2& quot; /> <id nullFlavor="NA" /> <code codeSystem="local" code="100.0250" displayName="RED BLOOD COUNT" /> <statusCode code="completed" /&gt ; <effectiveTime value="068352204567" /> < value unit="M/MM3" xsi:type="PQ" value="2.75" /&gt ; <interpretationCode codeSystem="local" code="*&quot ; /> <referenceRange> <observationRange> <text>4.00-5.20</text> </observationRange&gt ; </referenceRange> </observation> </component& gt; <component> <observation moodCode="EVN" classCode="OBS"> <templateId root=" 2.16.840.1.702465.10.20.22.4.2" /> <id nullFlavor="NA& quot; /> <code codeSystem="local" code="100.0300& quot; displayName="HGB - HEMOGLOBIN" /> <statusCode code="completed" /> <effectiveTime value=" 988287097183" /> <value unit="GM/DL" xsi:type=& quot;PQ" value="7.8" /> <interpretationCode codeSystem="local" code="" /> < referenceRange> <observationRange> <text>12- 16</text> </observationRange> </ referenceRange> </observation> </component> < component> <observation moodCode="EVN" classCode=" OBS"> <templateId root="2.16.840.1.524766.10.20.22.4.2&quot ; /> <id nullFlavor="NA" /> <code codeSystem="local" code="100.0400" displayName="HCT - HEMATOCRIT" /> <statusCode code="completed" /> <effectiveTime value="766682780117" /> <value unit="%" xsi:type="PQ" value="26.2" /> <interpretationCode codeSystem="local" code="*&quot ; /> <referenceRange> <observationRange> <text>36-46</text> </observationRange>&lt ;/referenceRange> </observation> </component> & lt;component> <observation moodCode="EVN" classCode=" OBS"> <templateId root="2.16.840.1.965780.10.20.22.4.2& quot; /> <id nullFlavor="NA" /> <code codeSystem="local" code="100.0550" displayName="MEAN CORPUSCULAR VOLUME" /> <statusCode code="completed&quot ; /> <effectiveTime value="450756252775" /> <value unit="UM3" xsi:type="PQ" value="95.3" /> <referenceRange> <observationRange> <text>80-100</text> </observationRange> </referenceRange> </observation> </component& gt; <component><observation moodCode="EVN" classCode=& quot;OBS"> <templateId root=" 2.16.840.1.827898.10.20.22.4.2" /> <id nullFlavor="NA& quot; /> <code codeSystem="local" code="100.0600" displayName="MEAN CORPUSCULAR HGB" /> <statusCode code= "completed" /> <effectiveTime value="088984578938& quot; /> <value unit="UUG" xsi:type="PQ" value="28.4" /> <referenceRange> < observationRange> <text>26-34</text> </ observationRange> </referenceRange> </observation&gt ; </component> <component> <observation moodCode ="EVN" classCode="OBS"> <templateId root=& quot;2.16.840.1.993875.10.20.22.4.2" /> <id nullFlavor=&quot ;NA" /> <code codeSystem="local" code=" 100.0650" displayName="MEAN CORPUSCULAR HGB CONC([facility]" /> <statusCode code="completed" /> < effectiveTime value="572267567776" /> <value unit=&quot ;GM/DL" xsi:type="PQ" value="29.8" /> < interpretationCode codeSystem="local" code="*" /> <referenceRange> <observationRange> < text>31-37</text> </observationRange> </ referenceRange> </observation> </component> < component> <observation moodCode="EVN" classCode=" OBS"> <templateId root="2.16.840.1.654087.10.20.22.4.2& quot; /> <id nullFlavor="NA" /> <code codeSystem="local" code="100.0750" displayName="RDW STANDARD DEVIATION" /> <statusCode code="completed" /> <effectiveTime value="956827245388" /> & lt;value unit="FL" xsi:type="PQ" value="55.6" /&gt ; <interpretationCode codeSystem="local" code="*&quot ; /> <referenceRange> <observationRange> <text>36.9-50.2</text> </observationRange> </referenceRange> </observation> </component&gt ; <component> <observation moodCode="EVN" classCode="OBS"> <templateId root=" 2.16.840.1.263206.10.20.22.4.2" /> <id nullFlavor="NA& quot; /> <code codeSystem="local" code="100.0850& quot; displayName="PLT - PLATELET COUNT" /> < statusCode code="completed" /> <effectiveTime value=& quot;593786390997" /> <value unit="T/MM3" xsi:type=& quot;PQ" value="174" /><referenceRange> < observationRange> <text>130-400</text> & lt;/observationRange> </referenceRange> </ observation> </component> <component> < observation moodCode="EVN" classCode="OBS"> < templateId root="2.16.840.1.020623.10.20.22.4.2" /> < id nullFlavor="NA" /> <code codeSystem="local&quot ; code="100.0950" displayName="MEAN PLATELET VOLUME" /> <statusCode code="completed" /> < effectiveTime value="118339414739" /> <value unit="UM3&quot ; xsi:type="PQ" value="9.6" /> < referenceRange> <observationRange> <text> 9.4-12.4</text> </observationRange> </ referenceRange> </observation> </component> < component> <observation moodCode="EVN" classCode=" OBS"> <templateId root="2.16.840.1.785611.10.20.22.4.2& quot; /> <id nullFlavor="NA" /> <code codeSystem="local" code="100.1050" displayName=" NEUTROPHILS % (AUTO)" /> <statusCode code=" completed" /> <effectiveTime value="262225047676" /> <value unit="%" xsi:type="PQ" value=" 79.8" /><interpretationCode codeSystem="local" code="* " /> <referenceRange> <observationRange&gt ; <text>33-66</text> </observationRange& gt; </referenceRange> </observation> </ component> <component> <observation moodCode="EVN& quot; classCode="OBS"> <templateId root=" 2.16.840.1.901897.10.20.22.4.2" /> <id nullFlavor="NA& quot; /> <code codeSystem="local" code="100.1100& quot; displayName="LYMPHOCYTES % (AUTO)" /> < statusCode code="completed" /> <effectiveTime value=& quot;517925527806" /> <value unit="%" xsi: type="PQ" value="10.4" /> < interpretationCode codeSystem="local" code="*" /> <referenceRange> <observationRange> <text >23-45</text> </observationRange> </ referenceRange> </observation> </component> < component> <observation moodCode="EVN" classCode=" OBS"> <templateId root="2.16.840.1.148065.10.20.22.4.2& quot; /> <id nullFlavor="NA" /> <code codeSystem="local" code="100.1150" displayName=" MONOCYTES % (AUTO)" /> <statusCode code=" completed" /> <effectiveTime value="913430980684" /> <value unit="%" xsi:type="PQ" value="8.7" /> <referenceRange> < observationRange> <text>0-9.0</text> < /observationRange> </referenceRange> </observation& gt; </component> <component> <observation moodCode="EVN" classCode="OBS"> <templateId root="2.16.840.1.417756.10.20.22.4.2" /> <id nullFlavor ="NA" /> <code codeSystem="local" code=" 100.1200" displayName="EOSINOPHILS % (AUTO)" /> <statusCode code="completed" /> <effectiveTime value="508879985746" /> <value unit="%& quot; xsi:type="PQ" value="0.9" /> < referenceRange> <observationRange> <text> 0-4</text> </observationRange> </ referenceRange> </observation> </component> < component> <observation moodCode="EVN" classCode=" OBS"> <templateId root="2.16.840.1.575262.10.20.22.4.2& quot; /> <id nullFlavor="NA" /> <code codeSystem="local" code="100.1250" displayName=" BASOPHILS % (AUTO)" /> <statusCode code=" completed" /> <effectiveTime value="358188592752" /> <value unit="%" xsi:type="PQ" value="0.0" /> <referenceRange> < observationRange> <text>0-2</text> </ observationRange> </referenceRange> </observation&gt ; </component> <component> <observation moodCode ="EVN" classCode="OBS"> <templateId root=& quot;2.16.840.1.816714.10..22.4.2" /> <id nullFlavor=&quot ;NA" /> <code codeSystem="local" code=" 100.1275" displayName="IMMATURE GRANULOCYTE % (AUTO)" /& gt; <statusCode code="completed" /> < effectiveTime value="268505044139" /> <value unit=&quot ;%" xsi:type="PQ" value="0.2" /> & lt;referenceRange> <observationRange> <text& gt;0.0-0.5</text> </observationRange> </ referenceRange> </observation> </component> < component> <observation moodCode="EVN" classCode=" OBS"> <templateId root="2.16.840.1.528040.10.20.22.4.2& quot; /> <id nullFlavor="NA" /> <code codeSystem="local" code="100.1300" displayName=" NEUTROPHILS # (AUTO)" /> <statusCode code="completed& quot; /> <effectiveTime value="261269740484" /> <value unit="T/MM3" xsi:type="PQ" value="5.1& quot; /> <referenceRange> <observationRange> <text>1.8-7.7</text> </observationRange> </referenceRange> </observation> </component> <component> <observation moodCode="EVN" classCode ="OBS"> <templateId root=" 2.16.840.1.474896.10.20.22.4.2" /> <id nullFlavor="NA& quot; /> <code codeSystem="local" code="100.1350& quot; displayName="LYMPHOCYTES # (AUTO)" /> < statusCode code="completed" /> <effectiveTime value=& quot;605725185005" /> <value unit="T/MM3" xsi:type ="PQ" value="0.7" /> <interpretationCode codeSystem="local" code="*" /> < referenceRange> <observationRange> <text> 1-4.8</text> </observationRange> </ referenceRange> </observation> </component> < component> <observation moodCode="EVN" classCode=" OBS"> <templateId root="2.16.840.1.891216.10.20.22.4.2& quot; /> <id nullFlavor="NA" /> <code codeSystem="local" code="100.1400" displayName=" MONOCYTES # (AUTO)" /> <statusCode code="completed&quot ; /> <effectiveTime value="639461192197" /> <value unit="T/MM3" xsi:type="PQ" value="0.6&quot ; /> <referenceRange> <observationRange> <text>0-0.8</text> </observationRange> </referenceRange> </observation> </component> <component> <observation moodCode="EVN" classCode=& quot;OBS"> <templateId root=" 2.16.840.1.303865.10.20.22.4.2" /> <id nullFlavor="NA& quot; /> <code codeSystem="local" code="100.1450& quot; displayName="EOSINOPHILS # (AUTO)" /> < statusCode code="completed" /> <effectiveTime value=& quot;876376796222" /> <value unit="T/MM3" xsi:type ="PQ" value="0.1" /> <referenceRange> <observationRange> <text>0-0.5</text> </observationRange> </referenceRange> </ observation> </component> <component><observation moodCode="EVN" classCode="OBS"> <templateId root="2.16.840.1.950646.10.20.22.4.2" /> <id nullFlavor ="NA" /> <code codeSystem="local" code=" 100.1500" displayName="BASOPHILS # (AUTO)" /> < statusCode code="completed" /> <effectiveTime value=& quot;590461254729" /> <value unit="T/MM3" xsi:type ="PQ" value="0.0" /> <referenceRange> <observationRange> <text>0-0.2</text> </observationRange> </referenceRange> </ observation> </component> <component> < observation moodCode="EVN" classCode="OBS"> < templateId root="2.16.840.1.980096.10.20.22.4.2" /> < id nullFlavor="NA" /> <code codeSystem="local&quot ; code="100.1525" displayName="IMMATURE GRANULOCYTE # (AUTO)&quot ; /> <statusCode code="completed" /> < effectiveTimevalue="168433106910" /> <value unit=" T/MM3" xsi:type="PQ" value="0.01" /> < referenceRange> <observationRange> <text> 0.00-0.03</text> </observationRange> </ referenceRange> </observation> </component> </ organizer> </entry> <entry> <organizer moodCode="EVN " classCode="BATTERY"> <templateId root=" 2.16.840.1.728214.10.20.22.4.1" /> <id nullFlavor="NA&quot ; /> <code codeSystem="local" code="LBMP" displayName="L200.0050" /> <statusCode code="completed " /> <component> <observation moodCode="EVN& quot; classCode="OBS"> <templateId root=" [id number]" /> <id nullFlavor="NA& quot; /> <code codeSystem="local" code="300.0400" displayName="FUNGAL CULTURE." /> <statusCode code=&quot ;completed" /> <effectiveTime value="[id number]&quot ; /> <value unit="MG/DL" xsi:type="PQ" value= "0.9" /> <interpretationCode codeSystem="local& quot; code="" /> <referenceRange> < observationRange> <text>0.7-1.2</text> & lt;/observationRange> </referenceRange> </ observation> </component> <component> < observation moodCode="EVN" classCode="OBS"> < templateId root="[id number]" /> < id nullFlavor="NA" /> <code codeSystem="local&quot ; code="300.0450" displayName="FUNGAL CULTURE, BLOOD." /&gt ; <statusCode code="completed" /> <effectiveTime value="929405449549" /> <value unit="RATIO" xsi:type="PQ" value="30" /> < interpretationCode codeSystem="local" code="*" /> <referenceRange> <observationRange> < text>6-26</text> </observationRange> </ referenceRange> </observation> </component> < component> <observation moodCode="EVN" classCode=" OBS"> <templateId root="2.16.840.1.902480.10.20.22.4.2& quot; /> <id nullFlavor="NA" /> <code codeSystem="local" code="300.0100" displayName="NA - Sodium" /> <statusCode code="completed" /> <effectiveTime value="308203783949" /> <value unit="MEQ/L" xsi:type="PQ" value="140" /> <referenceRange> <observationRange> &lt ;text>134-144</text> </observationRange> < /referenceRange> </observation> </component> &lt ;component> <observation moodCode="EVN" classCode=" OBS"> <templateId root="2.16.840.1.358112.10.20.22.4.2& quot; /> <id nullFlavor="NA" /> <code codeSystem="local" code="300.0150" displayName=" Potassium" /> <statusCode code="completed" /> <effectiveTime value="617695167552" /> < value unit="MEQ/L" xsi:type="PQ" value="5.1" /&gt ; <interpretationCode codeSystem="local" code="*&quot ; /> <referenceRange> <observationRange> <text>3.6-5</text> </observationRange> </referenceRange> </observation> </component& gt; <component> <observation moodCode="EVN" classCode=& quot;OBS"> <templateId root=" 2.16.840.1.001358.10.20.22.4.2" /> <id nullFlavor="NA& quot; /> <code codeSystem="local" code="300.0200&quot ; displayName="Chloride" /> <statusCode code=" completed" /> <effectiveTime value="760868473625" /> <value unit="MEQ/L" xsi:type="PQ" value=& quot;113" /> <interpretationCode codeSystem="local&quot ; code="*"/> <referenceRange> < observationRange> <text>98-107</text> &lt ;/observationRange> </referenceRange> </observation& gt; </component> <component> <observation moodCode="EVN" classCode="OBS"> <templateId root="2.16.840.1.715769.10.20.22.4.2" /> <id nullFlavor ="NA" /> <code codeSystem="local" code=" 300.0250" displayName="CO2 - Carbon Dioxide" /> < statusCode code="completed" /> <effectiveTime value=& quot;785083353797"/> <value unit="MEQ/L" xsi:type= "PQ" value="24" /> <referenceRange> <observationRange> <text>22-30</text> </observationRange> </referenceRange> </ observation> </component> <component> < observation moodCode="EVN"classCode="OBS"> < templateId root="2.16.840.1.857284.10.20.22.4.2" /> < id nullFlavor="NA" /> <code codeSystem="local&quot ; code="300.0300" displayName="Anion Gap" /> &lt ;statusCode code="completed" /> <effectiveTime value=& quot;205220252249" /> <value unit="MEQ/L" xsi:type ="PQ" value="3" /> <interpretationCode codeSystem="local" code="*" /> < referenceRange> <observationRange> <text>5-15&lt ;/text> </observationRange> </referenceRange&gt ; </observation> </component> <component> <observation moodCode="EVN" classCode="OBS"> &lt ;templateId root="2.16.840.1.910028.10.20.22.4.2" /> < id nullFlavor="NA" /> <code codeSystem="local&quot ; code="300.0350" displayName="BUN - Blood Urea Nitrogen" /& gt; <statusCode code="completed" /> < effectiveTime value="816797409440" /> <value unit=&quot ;MG/DL" xsi:type="PQ" value="27.0" /> < interpretationCode codeSystem="local" code="*" /> <referenceRange> <observationRange> < text>7-17</text> </observationRange></ referenceRange> </observation> </component> < component> <observation moodCode="EVN" classCode="OBS& quot;> <templateId root="2.16.840.1.179169.10.20.22.4.2&quot ; /> <id nullFlavor="NA" /> <code codeSystem="local" code="300.0410" displayName=" Glomerular Filtration Rate" /> <statusCode code=" completed" /> <effectiveTime value="281684791855" /> <value unit="" xsi:type="PQ" value=" 62" /> <referenceRange> <observationRange& gt; <text>NRG</text> </observationRange& gt; </referenceRange> </observation> </ component> <component> <observation moodCode="EVN& quot; classCode="OBS"> <templateId root=" 2.16.840.1.832843.10.20.22.4.2" /> <id nullFlavor="NA& quot; /> <code codeSystem="local" code="300.0500& quot; displayName="Glucose" /> <statusCode code=" completed" /> <effectiveTime value="435961033628" /> <value unit="MG/DL" xsi:type="PQ" value=& quot;166" /> <interpretationCode codeSystem="local&quot ; code="*" /> <referenceRange> < observationRange> <text>65-110</text> &lt ;/observationRange> </referenceRange> </observation& gt; </component> <component> <observation moodCode="EVN" classCode="OBS"> <templateId root="2.16.840.1.546756.10.20.22.4.2" /> <id nullFlavor ="NA" /> <code codeSystem="local" code=" 300.2000" displayName="Osmolality,Calculated" /> < statusCode code="completed" /> <effectiveTime value=& quot;286755915804" /> <value unit="MOSM/KG" xsi:type ="PQ" value="278" /> <referenceRange> <observationRange> <text>261-280</text> </observationRange> </referenceRange> </ observation> </component> <component> < observation moodCode="EVN" classCode="OBS"> < templateId root="2.16.840.1.391813.10.20.22.4.2" /> < id nullFlavor="NA" /> <code codeSystem="local&quot ; code="300.2200" displayName="Calcium" /> < statusCode code="completed" /> <effectiveTime value=& quot;643234662788" /> <value unit="MG/DL" xsi:type ="PQ" value="7.6" /> <interpretationCode codeSystem="local" code="" /> < referenceRange> <observationRange> <text>8.4- 10.2</text> </observationRange> </ referenceRange> </observation> </component> < component> <observation moodCode="EVN" classCode=" OBS"> <templateId root="2.16.840.1.731924.10..22.4.2&quot ; /> <id nullFlavor="NA" /> <code codeSystem="local" code="300.0095" displayName=" LICTERUS" /> <statusCode code="completed" /> <effectiveTime value="132542867245" /> < value unit="" xsi:type="PQ" value="< 2" /& gt; <referenceRange> <observationRange> <text>0-7</text> </observationRange> </ referenceRange> </observation> </component> < component> <observation moodCode="EVN" classCode="OBS "> <templateId root="2.16.840.1.108174.10..22.4.2& quot; /> <id nullFlavor="NA" /> <code codeSystem="local" code="300.0096" displayName=" LHEMOLYSIS" /> <statusCode code="completed" /> <effectiveTime value="213870421528" /> < value unit="" xsi:type="PQ" value="< 15" /& gt; <referenceRange> <observationRange> <text>0-25</text> </observationRange> & lt;/referenceRange> </observation> </component> <component> <observation moodCode="EVN" classCode=& quot;OBS"> <templateId root=" 2.16.840.1.480652.10.20.22.4.2" /> <id nullFlavor="NA& quot; /> <code codeSystem="local" code="300.0097& quot; displayName="LTURBIDITY" /> <statusCode code=" completed" /> <effectiveTime value="181643522189" /> <value unit="" xsi:type="PQ" value="& amp;lt;20" /> <referenceRange> < observationRange> <text>0-20</text> </ observationRange> </referenceRange> </observation> </component> </organizer> </entry> <entry> < organizer moodCode="EVN" classCode="BATTERY"> < templateId root="2.16.840.1.270087.10.20.22.4.1" /> <id nullFlavor="NA" /> <code codeSystem="local" code= "LMAG" displayName="L200.2000" /> <statusCode code="completed" /> <component> <observation moodCode="EVN" classCode="OBS"> <templateId root="2.16.840.1.054476.10.20.22.4.2" /> <id nullFlavor ="NA" /> <code codeSystem="local" code=" 300.2350" displayName="MAG - Magnesium" /> < statusCode code="completed" /> <effectiveTime value=& quot;195959800559" /> <value unit="MG/DL" xsi:type ="PQ" value="1.8" /> <referenceRange> <observationRange> <text>1.6-2.3</text> </observationRange> </referenceRange> &lt ;/observation> </component> </organizer> </entry> <entry> <organizer moodCode="EVN" classCode=" BATTERY"> <templateId root="2.16.840.1.751513.10.20.22.4.1& quot; /> <id nullFlavor="NA" /> <code codeSystem ="local" code="BGIVEPC" displayName="B600.798" /& gt; <statusCode code="completed" /> <component> <observation moodCode="EVN" classCode="OBS"> <templateId root="2.16.840.1.647942.10.20.22.4.2" /> <id nullFlavor="NA" /> <code codeSystem=& quot;local" code="600.801" displayName="BGIVEPC1" /&gt ; <statusCode code="completed" /> < effectiveTime value="256947099737" /> <value unit="" xsi:type="PQ" value="1 Unit PC Issued" /> < referenceRange> <observationRange> <text> NRG</text> </observationRange> </ referenceRange> </observation> </component> </ organizer> </entry> <entry> <organizer moodCode="EVN " classCode="BATTERY"> <templateId root=" 2.16.840.1.410613.10.20.22.4.1" /> <id nullFlavor="NA&quot ; /> <code codeSystem="local" code="LHGBPOST" displayName="L100.0299" /> <statusCode code="completed " /> <component> <observation moodCode="EVN& quot; classCode="OBS"> <templateId root=" 2.16.840.1.675498.10.20.22.4.2"/> <id nullFlavor="NA& quot; /> <code codeSystem="local"code="100.0300& quot; displayName="HGB - HEMOGLOBIN" /> <statusCode code="completed" /> <effectiveTime value=" 026626446380" /> <value unit="GM/DL" xsi:type="PQ&quot ; value="9.6" /> <interpretationCode codeSystem=" local" code="" /> <referenceRange> <observationRange> <text>12-16</text> </observationRange> </referenceRange> </ observation> </component> </organizer> </entry> & lt;entry> <organizer moodCode="EVN" classCode="BATTERY& quot;> <templateId root="2.16.840.1.633436.10.20.22.4.1" /& gt; <id nullFlavor="NA" /> <code codeSystem=" local" code="LBGM" displayName="L900.0530" /> & lt;statusCode code="completed" /> <component> &lt ;observation moodCode="EVN" classCode="OBS"> &lt ;templateId root="2.16.840.1.698576.10.20.22.4.2" /> < id nullFlavor="NA" /> <code codeSystem="local&quot ; code="850.0100" displayName="Glucometer" /> & lt;statusCode code="completed" /> <effectiveTime value=& quot;813396688291" /> <value unit="mg/dL" xsi:type ="PQ" value="242" /> <referenceRange> <observationRange> <text>65-110</text> </observationRange> </referenceRange> < /observation> </component> </organizer> </entry> <entry> <organizer moodCode="EVN" classCode="BATTERY& quot;> <templateId root="2.16.840.1.465042.10.20.22.4.1" /& gt; <id nullFlavor="NA" /> <code codeSystem=" local" code="LHGB" displayName="L100.0298" /> & lt;statusCode code="completed" /> <component> &lt ;observation moodCode="EVN" classCode="OBS"> &lt ;templateId root="2.16.840.1.971988.10.20.22.4.2" /> < id nullFlavor="NA" /> <code codeSystem="local&quot ; code="100.0300" displayName="HGB - HEMOGLOBIN" /> <statusCode code="completed" /> <effectiveTime value="339917771664" /> <value unit="GM/DL" xsi:type="PQ" value="9.9" /> < interpretationCode codeSystem="local" code="*" /> <referenceRange> <observationRange> <text >12-16</text> </observationRange> </ referenceRange> </observation> </component> </ organizer> </entry> <entry> <organizer moodCode="EVN& quot; classCode="BATTERY"> <templateId root=" 2.16.840.1.889402.10.20.22.4.1" /> <id nullFlavor="NA&quot ; /> <code codeSystem="local" code="LHCT" displayName="L100.0398" /> <statusCode code="completed " /> <component> <observation moodCode="EVN& quot; classCode="OBS"> <templateId root=" 2.16.840.1.417264.10.20.22.4.2" /> <id nullFlavor="NA& quot; /> <code codeSystem="local" code="100.0400& quot; displayName="HCT - HEMATOCRIT" /> <statusCode code="completed" /> <effectiveTime value=" 311892518549" /> <value unit="%" xsi:type= "PQ" value="32.3" /> <interpretationCode codeSystem="local" code="" /> < referenceRange> <observationRange> <text> 36-46</text> </observationRange> </ referenceRange> </observation> </component> </ organizer> </entry> <entry> <organizer moodCode="EVN " classCode="BATTERY"> <templateId root=" 2.16.840.1.653783.10.20.22.4.1" /> <id nullFlavor="NA&quot ; /> <code codeSystem="local" code="LBGM" displayName="L900.0530" /> <statusCode code="completed " /> <component> <observation moodCode="EVN& quot; classCode="OBS"> <templateId root=" 2.16.840.1.928085.10.20.22.4.2" /> <id nullFlavor="NA& quot; /> <code codeSystem="local" code="850.0100& quot; displayName="Glucometer" /> <statusCode code=& quot;completed" /> <effectiveTime value="114856027258& quot; /> <value unit="mg/dL" xsi:type="PQ" value="218" /> <referenceRange> < observationRange> <text>65-110</text> &lt ;/observationRange> </referenceRange> </observation& gt; </component> </organizer> </entry> <entry&gt ; <organizer moodCode="EVN" classCode="BATTERY"> <templateId root="2.16.840.1.032153.10.20.22.4.1" /> & lt;id nullFlavor="NA" /> <code codeSystem="local&quot ; code="LSTLOB" displayName="L600.5964" /> < statusCode code="completed" /> <component> < observation moodCode="EVN" classCode="OBS"> < templateId root="2.16.840.1.748456.10.20.22.4.2" /> < id nullFlavor="NA" /> <code codeSystem="local&quot ; code="600.5970" displayName="Occult Blood Result, Stool" / > <statusCode code="completed" /> < effectiveTime value="306067778235" /> <value unit=&quot ;" xsi:type="PQ" value="POSITIVE" /> < referenceRange> <observationRange> <text> NRG</text> </observationRange> </ referenceRange> </observation> </component> </ organizer> </entry> <entry> <organizer moodCode="EVN " classCode="BATTERY"> <templateId root=" 2.16.840.1.031719.10.20.22.4.1" /> <id nullFlavor="NA&quot ; /> <code codeSystem="local" code="LCBC" displayName="L100.0050" /> <statusCode code="completed " /> <component> <observation moodCode="EVN& quot; classCode="OBS"> <templateId root=" 2.16.840.1.970065.10.20.22.4.2" /> <id nullFlavor="NA& quot; /> <code codeSystem="local" code="100.0150& quot; displayName="WBC - WHITE BLOOD COUNT" /> < statusCode code="completed" /> <effectiveTime value=& quot;584111949617" /> <value unit="T/MM3" xsi:type=& quot;PQ" value="6.3" /><referenceRange> < observationRange> <text>4.5-11.0</text> & lt;/observationRange> </referenceRange> </ observation> </component> <component> < observation moodCode="EVN" classCode="OBS"> < templateId root="2.16.840.1.225540.10.20.22.4.2" /> < id nullFlavor="NA" /> <code codeSystem="local&quot ; code="100.0250" displayName="RED BLOOD COUNT" /> <statusCode code="completed" /> <effectiveTime value="909337482049" /> <value unit="M/MM3" xsi:type="PQ" value="3.18" /> < interpretationCode codeSystem="local" code="*" /> <referenceRange> <observationRange> < text>4.00-5.20</text> </observationRange> &lt ;/referenceRange> </observation> </component> & lt;component> <observation moodCode="EVN" classCode=&quot ;OBS"> <templateId root="2.16.840.1.490197.10.20.22.4.2 " /> <id nullFlavor="NA" /> <code codeSystem="local" code="100.0300"displayName="HGB - HEMOGLOBIN" /> <statusCode code="completed" /> <effectiveTime value="427770562749" /> < value unit="GM/DL" xsi:type="PQ" value="9.1" /&gt ; <interpretationCode codeSystem="local" code="*&quot ; /> <referenceRange> <observationRange> <text>12-16</text> </observationRange> & lt;/referenceRange> </observation> </component> <component> <observation moodCode="EVN" classCode=" OBS"> <templateIdroot="2.16.840.1.620046.10.20.22.4.2& quot; /> <id nullFlavor="NA" /> <code codeSystem="local" code="100.0400" displayName="HCT - HEMATOCRIT" /> <statusCode code="completed" /> <effectiveTime value="177051400996" /> < value unit="%" xsi:type="PQ" value="30.4" /> <interpretationCode codeSystem="local" code="*& quot; /> <referenceRange> <observationRange> <text>36-46</text> </observationRange> </referenceRange> </observation> </component> <component> <observationmoodCode="EVN" classCode=& quot;OBS"> <templateId root=" 2.16.840.1.452480.10.20.22.4.2" /> <id nullFlavor="NA& quot; /> <code codeSystem="local" code="100.0550& quot; displayName="MEAN CORPUSCULAR VOLUME" /> < statusCode code="completed" /> <effectiveTime value=& quot;197539592359" /> <value unit="UM3" xsi:type=& quot;PQ" value="95.6" /> <referenceRange> <observationRange> <text>80-100</text> </observationRange> </referenceRange> </ observation> </component> <component> < observation moodCode="EVN" classCode="OBS"> < templateId root="2.16.840.1.690276.10..22.4.2" /> < id nullFlavor="NA" /> <code codeSystem="local&quot ; code="100.0600" displayName="MEAN CORPUSCULAR HGB" /> <statusCode code="completed" /> <effectiveTime value="214297533118" /> <value unit="UUG" xsi :type="PQ" value="28.6" /> <referenceRange&gt ; <observationRange> <text>26-34</text&gt ; </observationRange> </referenceRange> & lt;/observation> </component> <component> < observation moodCode="EVN" classCode="OBS"> < templateId root="2.16.840.1.186102.10.20.22.4.2" /> < id nullFlavor="NA" /> <code codeSystem="local&quot ; code="100.0650" displayName="MEAN CORPUSCULAR HGB CONC([facility]& quot; /> <statusCode code="completed" /> < effectiveTime value="908114716561" /> <value unit=&quot ;GM/DL" xsi:type="PQ" value="29.9" /> < interpretationCode codeSystem="local" code="*" /> & lt;referenceRange> <observationRange> <text& gt;31-37</text> </observationRange> </ referenceRange> </observation> </component> < component> <observation moodCode="EVN" classCode=" OBS"> <templateId root="2.16.840.1.785552.10.20.22.4.2& quot;/> <id nullFlavor="NA" /> <code codeSystem="local"code="100.0750" displayName="RDW STANDARD DEVIATION" /> <statusCode code="completed&quot ; /> <effectiveTime value="786250528033" /> & lt;value unit="FL" xsi:type="PQ" value="54.7" /&gt ; <interpretationCode codeSystem="local" code="*&quot ; /> <referenceRange> <observationRange> <text>36.9-50.2</text></observationRange> & lt;/referenceRange> </observation> </component> <component> <observation moodCode="EVN" classCode=& quot;OBS"> <templateId root=" 2.16.840.1.079730.10.20.22.4.2" /> <id nullFlavor="NA& quot; /> <code codeSystem="local" code="100.0850& quot; displayName="PLT - PLATELET COUNT" /> < statusCode code="completed" /> <effectiveTime value=& quot;004191244647" /> <value unit="T/MM3" xsi:type ="PQ" value="195" /> <referenceRange> <observationRange> <text>130-400</text> </observationRange> </referenceRange> &lt ;/observation> </component> <component> < observation moodCode="EVN" classCode="OBS"> < templateId root="2.16.840.1.335258.10.20.22.4.2" /> < id nullFlavor="NA" /> <code codeSystem="local&quot ; code="100.0950" displayName="MEAN PLATELET VOLUME" /> <statusCode code="completed" /> < effectiveTime value="802486719665" /> <value unit=&quot ;UM3" xsi:type="PQ" value="9.7" /> < referenceRange> <observationRange> <text>9.4- 12.4</text> </observationRange> </ referenceRange> </observation> </component> < component> <observation moodCode="EVN" classCode=" OBS"> <templateId root="2.16.840.1.147931.10.20.22.4.2&quot ; /> <id nullFlavor="NA" /> <code codeSystem="local" code="100.1050" displayName=" NEUTROPHILS % (AUTO)" /> <statusCode code=" completed" /> <effectiveTime value="916501571343" /> <value unit="%" xsi:type="PQ" value="79.9" /> <interpretationCode codeSystem=" local" code="*" /> <referenceRange> <observationRange> <text>33-66</text> </observationRange> </referenceRange> </ observation> </component> <component> < observation moodCode="EVN" classCode="OBS"> < templateId root="2.16.840.1.312917.10.20.22.4.2" /> < id nullFlavor="NA" /> <code codeSystem="local&quot ; code="100.1100" displayName="LYMPHOCYTES % (AUTO)&quot ; /> <statusCode code="completed" /> < effectiveTime value="280299253283" /> <value unit=&quot ;%" xsi:type="PQ" value="10.1" /> & lt;interpretationCode codeSystem="local" code="*" /> <referenceRange> <observationRange> & lt;text>23-45</text> </observationRange> </ referenceRange> </observation> </component> < component> <observation moodCode="EVN" classCode="OBS "> <templateId root="2.16.840.1.308819.10.20.22.4.2& quot; /> <id nullFlavor="NA" /> <code codeSystem="local" code="100.1150" displayName=" MONOCYTES % (AUTO)" /> <statusCode code=" completed" /> <effectiveTime value="363831295937" /> <value unit="%" xsi:type="PQ" value="9.0" /> <referenceRange> < observationRange> <text>0-9.0</text> < /observationRange> </referenceRange> </observation> </component> <component> <observation moodCode=& quot;EVN" classCode="OBS"> <templateId root=" 2.16.840.1.080603.10.20.22.4.2" /> <id nullFlavor="NA& quot; /> <code codeSystem="local" code="100.1200& quot; displayName="EOSINOPHILS % (AUTO)" /> < statusCode code="completed" /><effectiveTime value=" 030418181580" /> <value unit="%"xsi:type=& quot;PQ" value="0.5" /> <referenceRange> <observationRange> <text>0-4</text> </observationRange> </referenceRange> </ observation> </component> <component> < observation moodCode="EVN" classCode="OBS"> < templateId root="2.16.840.1.261082.10.20.22.4.2" /> < id nullFlavor="NA"/> <code codeSystem="local&quot ; code="100.1250" displayName="BASOPHILS % (AUTO)" / > <statusCode code="completed" /><effectiveTime value="079582078487" /> <value unit="%& quot;xsi:type="PQ" value="0.2" /> < referenceRange> <observationRange> <text> 0-2</text> </observationRange> </referenceRange& gt; </observation> </component> <component> <observation moodCode="EVN" classCode="OBS"> <templateId root="2.16.840.1.101589.10.20.22.4.2" /> <id nullFlavor="NA"/> <code codeSystem=" local" code="100.1275" displayName="IMMATURE GRANULOCYTE & amp;#37; (AUTO)" /> <statusCode code="completed" / > <effectiveTime value="655189264494" /> & lt;value unit="%" xsi:type="PQ" value="0.3&quot ; /> <referenceRange> <observationRange> <text>0.0-0.5</text> </observationRange> </referenceRange> </observation> </component> & lt;component> <observation moodCode="EVN" classCode=&quot ;OBS"> <templateId root="2.16.840.1.678633.10.20.22.4.2&quot ; /> <id nullFlavor="NA" /> <code codeSystem="local" code="100.1300" displayName=" NEUTROPHILS # (AUTO)" /> <statusCode code="completed& quot; /> <effectiveTime value="513148447797" /> <value unit="T/MM3" xsi:type="PQ" value="5.0& quot; /> <referenceRange> <observationRange> <text>1.8-7.7</text> </observationRange& gt; </referenceRange> </observation> </ component> <component> <observation moodCode="EVN& quot; classCode="OBS"> <templateId root=" 2.16.840.1.968385.10.20.22.4.2" /> <id nullFlavor="NA& quot; /> <code codeSystem="local" code="100.1350& quot; displayName="LYMPHOCYTES # (AUTO)" /> < statusCode code="completed" /> <effectiveTime value=" 842523339788" /> <value unit="T/MM3" xsi:type=& quot;PQ" value="0.6" /> <interpretationCode codeSystem="local" code="*" /> < referenceRange> <observationRange> <text> 1-4.8</text> </observationRange> </ referenceRange> </observation> </component> < component> <observation moodCode="EVN" classCode=" OBS"> <templateId root="2.16.840.1.276369.10.20.22.4.2& quot; /> <id nullFlavor="NA" /> <code codeSystem= "local" code="100.1400" displayName="MONOCYTES # (AUTO) " /> <statusCode code="completed" /> & lt;effectiveTime value="813675676362" /> <value unit=& quot;T/MM3" xsi:type="PQ" value="0.6" /> & lt;referenceRange> <observationRange> <text>0-0.8 </text> </observationRange> </referenceRange& gt; </observation> </component> <component> <observation moodCode="EVN" classCode="OBS"> <templateId root="2.16.840.1.754452.10.20.22.4.2" /> <id nullFlavor="NA" /> <codecodeSystem=" local" code="100.1450" displayName="EOSINOPHILS # (AUTO)& quot; /> <statusCode code="completed" /> & lt;effectiveTime value="226282910115" /> <value unit=& quot;T/MM3" xsi:type="PQ" value="0.0" /> & lt;referenceRange> <observationRange> <text& gt;0-0.5</text> </observationRange> </ referenceRange> </observation> </component> < component> <observation moodCode="EVN" classCode=" OBS"> <templateId root="2.16.840.1.798493.10.20.22.4.2& quot; /> <id nullFlavor="NA" /> <code codeSystem="local" code="100.1500" displayName=" BASOPHILS # (AUTO)" /> <statusCode code="completed" /&gt ; <effectiveTime value="074815050878" /> < value unit="T/MM3" xsi:type="PQ" value="0.0" /&gt ; <referenceRange> <observationRange> <text>0-0.2</text> </observationRange> </referenceRange> </observation> </component> <component> <observation moodCode="EVN" classCode= "OBS"> <templateId root=" [id number]" /> <id nullFlavor="NA& quot; /> <code codeSystem="local" code="100.1525& quot; displayName="IMMATURE GRANULOCYTE # (AUTO)" /> < statusCode code="completed" /> <effectiveTime value=& quot;[id number]" /> <value unit="T/MM3" xsi:type ="PQ" value="0.02" /> <referenceRange> <observationRange> <text>0.00-0.03</text&gt ; </observationRange> </referenceRange> </ observation> </component> </organizer> </entry> & lt;entry> <organizer moodCode="EVN" classCode="BATTERY&quot ;> <templateId root="2.16.840.1.574370.10.20.22.4.1" /> <id nullFlavor="NA" /> <code codeSystem=" local" code="LCMP" displayName="L200.0020" /> & lt;statusCode code="completed" /> <component> &lt ;observation moodCode="EVN" classCode="OBS"> &lt ;templateId root="2.16.840.1.057219.10.20.22.4.2" /> < id nullFlavor="NA" /> <code codeSystem="local&quot ; code="300.0400" displayName="FUNGAL CULTURE." /> <statusCode code="completed" /> <effectiveTime value="326522911284" /> <value unit="MG/DL" xsi:type="PQ" value="0.8" /> <referenceRange& gt; <observationRange> <text>0.7-1.2</ text> </observationRange> </referenceRange> </observation> </component> <component> <observation moodCode="EVN" classCode="OBS"> <templateId root="2.16.840.1.906732.10.20.22.4.2" /> <id nullFlavor="NA" /> <code codeSystem=" local" code="300.0450" displayName="FUNGAL CULTURE, BLOOD.& quot; /> <statusCode code="completed" /> & lt;effectiveTime value="144104729653" /> <value unit=& quot;RATIO" xsi:type="PQ" value="29" /> < interpretationCode codeSystem="local" code="*" /> <referenceRange> <observationRange> < text>6-26</text> </observationRange> </ referenceRange> </observation> </component> < component> <observation moodCode="EVN" classCode=" OBS"> <templateId root="2.16.840.1.701653.10.20.22.4.2& quot; /> <id nullFlavor="NA" /> <code codeSystem="local" code="300.0100" displayName="NA - Sodium" /> <statusCode code="completed" /> <effectiveTime value="704436670295" /> <value unit="MEQ/L" xsi:type="PQ" value="140" /> <referenceRange> <observationRange> <text >134-144</text> </observationRange> </ referenceRange> </observation> </component> < component> <observation moodCode="EVN" classCode=" OBS"> <templateId root="2.16.840.1.156204.10.20.22.4.2& quot; /> <id nullFlavor="NA" /> <code codeSystem="local" code="300.0150" displayName=" Potassium" /> <statusCode code="completed" />& lt;effectiveTime value="786308751283" /> <value unit=& quot;MEQ/L" xsi:type="PQ" value="4.8" /> & lt;referenceRange> <observationRange> <text& gt;3.6-5</text> </observationRange> </ referenceRange> </observation> </component> < component> <observation moodCode="EVN" classCode=" OBS"> <templateId root="2.16.840.1.863742.10.20.22.4.2& quot; /> <id nullFlavor="NA" /> <code codeSystem="local" code="300.0200" displayName=" Chloride" /> <statusCode code="completed" /> <effectiveTime value="721824173027" /> < value unit="MEQ/L" xsi:type="PQ"value="111" /> <interpretationCode codeSystem="local" code="*&quot ; /> <referenceRange> <observationRange> <text>98-107</text> </observationRange> </referenceRange> </observation> </component> <component> <observation moodCode="EVN" classCode= "OBS"> <templateId root=" 2.16.840.1.550137.10.20.22.4.2" /> <id nullFlavor="NA& quot; /> <code codeSystem="local" code="300.0250& quot; displayName="CO2 - Carbon Dioxide" /> <statusCode code=& quot;completed" /> <effectiveTime value="742893336963& quot; /> <value unit="MEQ/L" xsi:type="PQ" value="24" /> <referenceRange> < observationRange> <text>22-30</text> < /observationRange> </referenceRange> </observation& gt; </component> <component> <observation moodCode="EVN" classCode="OBS"> <templateId root="2.16.840.1.719320.10.20.22.4.2" /> <id nullFlavor ="NA" /> <code codeSystem="local" code=" 300.0300" displayName="Anion Gap" /> <statusCode code="completed" /> <effectiveTime value=" 749381141735" /> <value unit="MEQ/L" xsi:type="PQ& quot; value="5" /> <referenceRange> < observationRange> <text>5-15</text> </ observationRange> </referenceRange> </observation&gt ; </component> <component> <observation moodCode ="EVN" classCode="OBS"> <templateId root=& quot;2.16.840.1.582597.10.20.22.4.2" /> <id nullFlavor="NA&quot ; /> <code codeSystem="local" code="300.0350&quot ; displayName="BUN - Blood Urea Nitrogen" /> < statusCode code="completed" /> <effectiveTime value=& quot;563282553927" /> <value unit="MG/DL" xsi:type ="PQ" value="23.0" /> <interpretationCode codeSystem="local" code="*" /> < referenceRange> <observationRange> <text>7- 17</text> </observationRange> </ referenceRange> </observation> </component> < component> <observation moodCode="EVN" classCode=" OBS"> <templateId root="2.16.840.1.663407.10..22.4.2&quot ; /> <id nullFlavor="NA" /> <code codeSystem="local" code="300.0410" displayName=" Glomerular Filtration Rate" /> <statusCode code=" completed" /> <effectiveTime value="180356192766" /> <value unit="" xsi:type="PQ" value=" 71" /> <referenceRange><observationRange> <text>NRG</text> </observationRange> </referenceRange> </observation> </component> <component> <observation moodCode="EVN" classCode=& quot;OBS"> <templateId root=" 2.16.840.1.889187.10..22.4.2" /> <id nullFlavor="NA& quot; /> <code codeSystem="local" code="300.0500& quot; displayName="Glucose" /> <statusCode code=" completed" /> <effectiveTime value="530005085668" /> <value unit="MG/DL" xsi:type="PQ" value=& quot;156" /> <interpretationCode codeSystem="local&quot ; code="*" /> <referenceRange> < observationRange><text>65-110</text> </ observationRange> </referenceRange> </observation&gt ; </component> <component> <observation moodCode ="EVN" classCode="OBS"> <templateId root=& quot;2.16.840.1.058017.10.20.22.4.2" /> <id nullFlavor=&quot ;NA" /> <code codeSystem="local" code=" 300.2000" displayName="Osmolality,Calculated" /> < statusCode code="completed" /> <effectiveTime value=& quot;885310028599" /> <value unit="MOSM/KG" xsi: type="PQ" value="276" /> <referenceRange> <observationRange> <text>261-280</text& gt; </observationRange> </referenceRange> & lt;/observation> </component> <component> < observation moodCode="EVN" classCode="OBS"> < templateId root="2.16.840.1.402641.10.20.22.4.2" /> < id nullFlavor="NA" /> <code codeSystem="local&quot ; code="300.2200" displayName="Calcium" /> < statusCode code="completed" /> <effectiveTime value=& quot;948628595068" /> <value unit="MG/DL" xsi:type ="PQ" value="7.8" /> <interpretationCode codeSystem="local" code="*" /> < referenceRange> <observationRange> <text> 8.4-10.2</text> </observationRange> </ referenceRange> </observation> </component> < component> <observation moodCode="EVN" classCode=" OBS"> <templateId root="2.16.840.1.362162.10.20.22.4.2& quot; /> <id nullFlavor="NA" /> <code codeSystem="local" code="300.2700" displayName=" Bilirubin,Total" /> <statusCode code="completed" / > <effectiveTime value="283056893619" /> & lt;value unit="MG/DL" xsi:type="PQ" value="0.30" / > <referenceRange> <observationRange> <text>0.20-1.30</text> </observationRange> </referenceRange> </observation> </component > <component> <observation moodCode="EVN" classCode="OBS"> <templateId root=" 2.16.840.1.939681.10.20.22.4.2" /> <id nullFlavor="NA& quot; /> <code codeSystem="local" code="300.2975& quot; displayName="Alkaline Phosphatase" /> < statusCode code="completed" /> <effectiveTime value=& quot;010887391586" /> <value unit="U/L" xsi:type=& quot;PQ" value="40" /> <referenceRange> <observationRange> <text>38-126</text> </observationRange> </referenceRange> </ observation> </component> <component> < observation moodCode="EVN" classCode="OBS"> < templateId root="2.16.840.1.042038.10.20.22.4.2" /> < id nullFlavor="NA" /> <code codeSystem="local&quot ; code="300.3050" displayName="AST - Aspartate Amino Transfer& quot; /> <statusCode code="completed" /> & lt;effectiveTime value="726832575024" /> <value unit=& quot;U/L" xsi:type="PQ" value="16" /> < referenceRange> <observationRange> <text>14- 36</text> </observationRange> </ referenceRange> </observation> </component> < component> <observation moodCode="EVN" classCode=" OBS"> <templateId root="2.16.840.1.112452.10.20.22.4.2& quot; /> <id nullFlavor="NA" /> <code codeSystem="local" code="300.3100" displayName="ALT& quot; /> <statusCode code="completed" /> & lt;effectiveTime value="692660023818" /> <value unit=& quot;U/L" xsi:type="PQ" value="37" /> < referenceRange> <observationRange> <text> 9-52</text> </observationRange> </ referenceRange> </observation> </component> < component> <observation moodCode="EVN" classCode=" OBS"> <templateId root="2.16.840.1.422169.10.20.22.4.2& quot; /> <id nullFlavor="NA" /> <code codeSystem="local" code="300.3110" displayName="TP - Total Protein" /> <statusCode code="completed" /& gt; <effectiveTime value="962295019662" /> &lt ;value unit="G/DL" xsi:type="PQ" value="5.5" /&gt ; <interpretationCode codeSystem="local" code="*&quot ; /> <referenceRange> <observationRange> <text>6.3-8.2</text> </observationRange> </referenceRange> </observation> </component> <component> <observation moodCode="EVN" classCode ="OBS"> <templateId root=" 2.16.840.1.127523.10.20.22.4.2" /> <id nullFlavor="NA& quot; /> <code codeSystem="local" code="300.3120& quot; displayName="Albumin Level" /> <statusCode code=& quot;completed" /> <effectiveTime value="343130045085& quot;/> <value unit="G/DL" xsi:type="PQ" value="2.7" /> <interpretationCode codeSystem="local& quot; code="*" /> <referenceRange> < observationRange> <text>3.5-5.0</text> </ observationRange> </referenceRange> </observation&gt ; </component> <component> <observation moodCode ="EVN" classCode="OBS"> <templateId root=& quot;2.16.840.1.321067.10.20.22.4.2" /> <id nullFlavor="NA& quot; /> <code codeSystem="local" code="300.3130& quot; displayName="Globulin" /> <statusCode code=" completed" /> <effectiveTime value="437914372867" /> <value unit="G/DL" xsi:type="PQ" value=& quot;2.8" /> <referenceRange> <observationRange& gt; <text>2.4-3.6</text> </ observationRange> </referenceRange> </observation&gt ; </component> <component> <observation moodCode=& quot;EVN" classCode="OBS"> <templateId root=" 2.16.840.1.347126.10.20.22.4.2" /> <id nullFlavor="NA& quot; /> <code codeSystem="local" code="300.3140& quot; displayName="Albumin/Globulin Ratio" /> < statusCode code="completed" /> <effectiveTime value=& quot;011297281432" /> <value unit="RATIO" xsi:type ="PQ" value="1.0" /> <interpretationCode codeSystem="local" code="*" /> < referenceRange> <observationRange> <text> 1.1-2.2</text> </observationRange> </referenceRange > </observation> </component> <component> <observation moodCode="EVN" classCode="OBS"> <templateId root="2.16.840.1.420511.10.20.22.4.2" /> <id nullFlavor="NA" /> <code codeSystem=& quot;local" code="300.0095" displayName="LICTERUS" /&gt ; <statusCode code="completed" /> < effectiveTime value="802597752000" /> <value unit=&quot ;" xsi:type="PQ" value="< 2" /> < referenceRange> <observationRange> <text>0-7& lt;/text> </observationRange> </referenceRange& gt; </observation> </component> <component> <observation moodCode="EVN" classCode="OBS"> <templateId root="2.16.840.1.010515.10.20.22.4.2" /> <id nullFlavor="NA" /> <code codeSystem=&quot ;local" code="300.0096" displayName="LHEMOLYSIS" /> <statusCode code="completed" /> < effectiveTime value="146978176463" /> <value unit=&quot ;" xsi:type="PQ" value="< 15" /> &lt ;referenceRange> <observationRange> <text&gt ;0-25</text> </observationRange> </ referenceRange> </observation> </component> < component> <observation moodCode="EVN" classCode=" OBS"> <templateId root="2.16.840.1.904374.10.20.22.4.2& quot; /> <id nullFlavor="NA" /> <code codeSystem="local" code="300.0097" displayName=" LTURBIDITY" /> <statusCode code="completed" /> <effectiveTime value="525812157087" /> < value unit="" xsi:type="PQ" value="< 20" /& gt; <referenceRange> <observationRange> <text>0-20</text> </observationRange> & lt;/referenceRange> </observation> </component> & lt;/organizer> </entry> <entry> <organizer moodCode=&quot ;EVN" classCode="BATTERY"> <templateId root=" 2.16.840.1.351233.10..22.4.1" /> <id nullFlavor="NA&quot ; /> <code codeSystem="local" code="LBGM" displayName="L900.0530" /> <statusCode code="completed " /> <component> <observation moodCode="EVN& quot; classCode="OBS"> <templateId root=" 2.16.840.1.621982.10..22.4.2"/> <id nullFlavor="NA& quot; /> <code codeSystem="local"code="850.0100& quot; displayName="Glucometer" /> <statusCode code=& quot;completed" /> <effectiveTime value="941449139568& quot; /> <value unit="mg/dL" xsi:type="PQ" value="166" /> <referenceRange> < observationRange> <text>65-110</text> </ observationRange> </referenceRange> </observation&gt ; </component> </organizer> </entry> <entry> <organizer moodCode="EVN" classCode="BATTERY"> <templateId root="2.16.840.1.452878.10..22.4.1" /> < id nullFlavor="NA" /> <code codeSystem="local" code="LBGM" displayName="L900.0530" /> < statusCode code="completed" /> <component> < observation moodCode="EVN" classCode="OBS"> < templateId root="2.16.840.1.103183.10.20.22.4.2" /> < id nullFlavor="NA" /> <code codeSystem="local&quot ; code="850.0100" displayName="Glucometer" /> & lt;statusCode code="completed" /> <effectiveTime value= "163930751152" /> <value unit="mg/dL" xsi: type="PQ" value="226" /> <referenceRange> <observationRange> <text>65-110</text> </observationRange> </referenceRange> </ observation> </component> </organizer> </entry> & lt;entry> <organizer moodCode="EVN" classCode="BATTERY& quot;> <templateId root="2.16.840.1.321806.10.20.22.4.1" /& gt; <id nullFlavor="NA" /> <code codeSystem="local " code="LHGB" displayName="L100.0298" /> < statusCode code="completed" /> <component> < observation moodCode="EVN" classCode="OBS"> < templateId root="2.16.840.1.955205.10.20.22.4.2" /> < id nullFlavor="NA" /> <code codeSystem="local&quot ; code="100.0300" displayName="HGB - HEMOGLOBIN" /> <statusCode code="completed" /> <effectiveTime value="744104547575" /> <value unit="GM/DL" xsi:type="PQ" value="10.0" /> < interpretationCode codeSystem="local" code="*" /> <referenceRange> <observationRange> < text>12-16</text> </observationRange> </ referenceRange> </observation> </component> </ organizer> </entry> <entry> <organizer moodCode="EVN " classCode="BATTERY"> <templateId root=" 2.16.840.1.328386.10.20.22.4.1" /> <id nullFlavor="NA&quot ; /> <code codeSystem="local" code="LHCT" displayName="L100.0398" /> <statusCode code="completed " /> <component> <observation moodCode="EVN" classCode="OBS"> <templateId root=" 2.16.840.1.784484.10.20.22.4.2" /> <id nullFlavor="NA& quot; /> <code codeSystem="local" code="100.0400&quot ; displayName="HCT - HEMATOCRIT" /> <statusCode code=& quot;completed" /> <effectiveTime value="582964380446& quot; /> <value unit="%" xsi:type="PQ&quot ; value="32.3" /> <interpretationCode codeSystem=" local" code="*" /> <referenceRange> <observationRange> <text>36-46</text> </observationRange> </referenceRange> </observation > </component> </organizer> </entry> <entry&gt ; <organizer moodCode="EVN" classCode="BATTERY"> <templateId root="2.16.840.1.256673.10.20.22.4.1" /> & lt;id nullFlavor="NA" /><code codeSystem="local" code= "LSTLOB" displayName="L600.5964" /> <statusCode code="completed" /> <component> <observation moodCode="EVN" classCode="OBS"> <templateId root="2.16.840.1.217710.10.20.22.4.2" /> <id nullFlavor ="NA" /> <code codeSystem="local" code=" 600.5970" displayName="Occult Blood Result, Stool" /> <statusCode code="completed" /> <effectiveTime value="011298459188" /> <value unit="" xsi: type="PQ" value="NEGATIVE" /> <referenceRange > <observationRange><text>NRG</text> </observationRange> </referenceRange> </observation& gt; </component> </organizer> </entry> <entry&gt ; <organizer moodCode="EVN" classCode="BATTERY"> <templateId root="2.16.840.1.546544.10.20.22.4.1" /> & lt;id nullFlavor="NA" /> <code codeSystem="local&quot ; code="LBGM" displayName="L900.0530" /> < statusCode code="completed" /> <component> < observation moodCode="EVN" classCode="OBS"> < templateId root="2.16.840.1.249957.10.20.22.4.2" /> < id nullFlavor="NA" /> <code codeSystem="local&quot ; code="850.0100" displayName="Glucometer" /> & lt;statusCode code="completed" /> <effectiveTime value= "468611363400" /> <value unit="mg/dL" xsi: type="PQ" value="229" /> <referenceRange> <observationRange> <text>65-110</text&gt ; </observationRange> </referenceRange> & lt;/observation> </component> </organizer> </entry&gt ; <entry> <organizer moodCode="EVN" classCode=" BATTERY"> <templateId root="2.16.840.1.333216.10.20.22.4.1& quot; /> <id nullFlavor="NA" /> <code codeSystem ="local" code="LCBC" displayName="L100.0050" /&gt ; <statusCode code="completed" /> <component> <observation moodCode="EVN" classCode="OBS"> <templateId root="2.16.840.1.200261.10.20.22.4.2" /> <id nullFlavor="NA" /> <code codeSystem=" local" code="100.0150" displayName="WBC - WHITE BLOOD COUNT& quot; /> <statusCode code="completed" /> & lt;effectiveTime value="335289114094" /> <value unit=& quot;T/MM3" xsi:type="PQ" value="5.9" /> < referenceRange> <observationRange> <text> 4.5-11.0</text> </observationRange> </ referenceRange> </observation> </component> < component> <observation moodCode="EVN" classCode=" OBS"> <templateId root="2.16.840.1.340716.10.20.22.4.2& quot; /> <id nullFlavor="NA" /> <code codeSystem="local" code="100.0250" displayName="RED BLOOD COUNT" /> <statusCode code="completed" /&gt ; <effectiveTime value="794130984005" /> <value unit="M/MM3" xsi:type="PQ" value="3.29" /> <interpretationCode codeSystem="local" code="*" /& gt; <referenceRange> <observationRange> <text>4.00-5.20</text></observationRange> </ referenceRange> </observation> </component> < component> <observation moodCode="EVN" classCode=" OBS"> <templateId root="2.16.840.1.246056.10.20.22.4.2& quot; /> <id nullFlavor="NA" /> <code codeSystem="local" code="100.0300" displayName="HGB - HEMOGLOBIN" /> <statusCode code="completed" /> <effectiveTime value="873070002289" /> < value unit="GM/DL" xsi:type="PQ" value="9.4" /&gt ; <interpretationCode codeSystem="local" code="*&quot ; /> <referenceRange> <observationRange> <text>12-16</text> </observationRange> </referenceRange> </observation> </component&gt ; <component> <observation moodCode="EVN" classCode="OBS"> <templateId root=" 2.16.840.1.754995.10.20.22.4.2" /> <id nullFlavor="NA& quot; /> <code codeSystem="local" code="100.0400& quot; displayName="HCT - HEMATOCRIT" /> <statusCode code="completed" /> <effectiveTime value=" 749547497371" /> <value unit="%" xsi:type= "PQ" value="31.2" /> <interpretationCode codeSystem="local" code="*" /> < referenceRange> <observationRange> <text>36- 46</text> </observationRange> </ referenceRange> </observation> </component> < component> <observation moodCode="EVN" classCode=" OBS"> <templateId root="2.16.840.1.029664.10.20.22.4.2& quot; /> <id nullFlavor="NA" /> <code codeSystem="local" code="100.0550" displayName="MEAN CORPUSCULAR VOLUME" /> <statusCode code="completed&quot ; /> <effectiveTime value="026603436930" /> <value unit="UM3" xsi:type="PQ" value="94.8" /> <referenceRange> <observationRange> &lt ;text>80-100</text> </observationRange> </ referenceRange> </observation> </component> < component> <observation moodCode="EVN" classCode=" OBS"> <templateId root="2.16.840.1.125444.10.20.22.4.2& quot; /> <id nullFlavor="NA" /> <code codeSystem="local" code="100.0600" displayName="MEAN CORPUSCULAR HGB" /> <statusCode code="completed" / > <effectiveTime value="573559015654" /> & lt;value unit="UUG" xsi:type="PQ" value="28.6" /& gt; <referenceRange> <observationRange> <text>26-34</text> </observationRange> </referenceRange> </observation> </component> <component> <observation moodCode="EVN" classCode=& quot;OBS"> <templateId root=" 2.16.840.1.878004.10.20.22.4.2" /> <id nullFlavor="NA& quot; /> <code codeSystem="local" code="100.0650& quot; displayName="MEAN CORPUSCULAR HGB CONC([facility]" /> < statusCode code="completed" /> <effectiveTime value=& quot;911226168754" /> <value unit="GM/DL" xsi:type ="PQ" value="30.1" /> <interpretationCode codeSystem="local" code="*" /> < referenceRange> <observationRange> <text> 31-37</text> </observationRange> </ referenceRange> </observation> </component> < component> <observation moodCode="EVN" classCode=" OBS"> <templateId root="2.16.840.1.343298.10..22.4.2& quot; /> <id nullFlavor="NA" /> <code codeSystem="local" code="100.0750" displayName="RDW STANDARD DEVIATION" /> <statusCode code="completed&quot ; /> <effectiveTime value="636577966249" /> <value unit="FL" xsi:type="PQ" value="54.3" / > <interpretationCode codeSystem="local" code="*" /> <referenceRange> <observationRange> <text>36.9-50.2</text> </observationRange> </referenceRange> </observation> </component&gt ; <component> <observation moodCode="EVN" classCode="OBS"> <templateId root=" 2.16.840.1.863965.10.20.22.4.2" /> <id nullFlavor="NA" /& gt; <code codeSystem="local" code="100.0850" displayName="PLT - PLATELET COUNT" /> <statusCode code= "completed" /> <effectiveTime value="294087013975& quot; /> <value unit="T/MM3" xsi:type="PQ" value="217" /> <referenceRange> < observationRange> <text>130-400</text> </ observationRange> </referenceRange> </observation&gt ; </component> <component> <observation moodCode ="EVN" classCode="OBS"> <templateId root=& quot;2.16.840.1.480171.10.20.22.4.2" /> <id nullFlavor=&quot ;NA" /> <code codeSystem="local" code=" 100.0950" displayName="MEAN PLATELET VOLUME" /> < statusCode code="completed" /> <effectiveTime value=& quot;479233399899" /> <value unit="UM3" xsi:type=& quot;PQ" value="9.5" /> <referenceRange> <observationRange> <text>9.4-12.4</text> </observationRange> </referenceRange> < /observation> </component> <component> < observation moodCode="EVN" classCode="OBS"> < templateId root="2.16.840.1.623630.10.20.22.4.2" /> < id nullFlavor="NA" /> <code codeSystem="local&quot ; code="100.1050" displayName="NEUTROPHILS % (AUTO)&quot ; /> <statusCode code="completed" /> < effectiveTime value="385650926065" /> <value unit=&quot ;%" xsi:type="PQ" value="77.2" /> & lt;interpretationCode codeSystem="local" code="*" /> <referenceRange> <observationRange> <text& gt;33-66</text> </observationRange> </ referenceRange> </observation> </component> < component> <observation moodCode="EVN" classCode=" OBS"> <templateId root="2.16.840.1.700322.10.20.22.4.2" / > <id nullFlavor="NA" /> <code codeSystem="local" code="100.1100" displayName=" LYMPHOCYTES % (AUTO)" /> <statusCode code=" completed"/> <effectiveTime value="353879744665" / > <value unit="%" xsi:type="PQ" value ="11.8" /> <interpretationCode codeSystem="local& quot; code="*" /> <referenceRange> < observationRange> <text>23-45</text> < /observationRange> </referenceRange> </observation&gt ; </component> <component> <observation moodCode ="EVN" classCode="OBS"> <templateId root=& quot;2.16.840.1.203275.10.20.22.4.2" /> <id nullFlavor=&quot ;NA" /> <code codeSystem="local" code=" 100.1150" displayName="MONOCYTES % (AUTO)" /> <statusCode code="completed" /> <effectiveTime value=& quot;904931360762" /> <value unit="%" xsi: type="PQ" value="9.9" /> <interpretationCode codeSystem="local" code="*" /> < referenceRange> <observationRange> <text> 0-9.0</text> </observationRange> </ referenceRange> </observation> </component> < component> <observation moodCode="EVN" classCode="OBS" > <templateId root="2.16.840.1.950200.10.20.22.4.2" /& gt; <id nullFlavor="NA" /> <code codeSystem=& quot;local" code="100.1200" displayName="EOSINOPHILS &# 37; (AUTO)" /> <statusCode code="completed" /> <effectiveTime value="989925625147" /> < value unit="%" xsi:type="PQ" value="0.7" / > <referenceRange> <observationRange> <text>0-4</text> </observationRange> </referenceRange> </observation> </component> <component> <observation moodCode="EVN" classCode=& quot;OBS"> <templateId root=" 2.16.840.1.892248.10.20.22.4.2" /> <id nullFlavor="NA& quot; /> <code codeSystem="local" code="100.1250&quot ; displayName="BASOPHILS % (AUTO)" /> < statusCode code="completed" /> <effectiveTime value=& quot;[id number]" /> <value unit="%" xsi: type="PQ" value="0.2" /> <referenceRange> <observationRange> <text>0-2</text> </observationRange> </referenceRange> &lt ;/observation> </component> <component> < observation moodCode="EVN" classCode="OBS"> < templateId root="[id number]" /> < id nullFlavor="NA" /> <code codeSystem="local" code="100.1275" displayName="IMMATURE GRANULOCYTE % (AUTO )" /> <statusCode code="completed" /> < effectiveTime value="[id number]" /> <value unit=&quot ;%" xsi:type="PQ" value="0.2" /> & lt;referenceRange> <observationRange> <text& gt;0.0-0.5</text> </observationRange> </ referenceRange> </observation> </component> < component> <observation moodCode="EVN" classCode=" OBS"> <templateId root="2.16.840.1.040936.10.20.22.4.2& quot; /> <id nullFlavor="NA" /> <code codeSystem="local" code="100.1300" displayName=" NEUTROPHILS # (AUTO)" /> <statusCode code="completed& quot; /> <effectiveTime value="111748635386" /> < value unit="T/MM3" xsi:type="PQ" value="4.5" /&gt ; <referenceRange> <observationRange> <text>1.8-7.7</text> </observationRange> </referenceRange> </observation> </component> <component> <observation moodCode="EVN" classCode=& quot;OBS"> <templateId root=" 2.16.840.1.378586.10.20.22.4.2" /> <id nullFlavor="NA& quot; /> <code codeSystem="local" code="100.1350& quot; displayName="LYMPHOCYTES # (AUTO)" /> < statusCode code="completed" /> <effectiveTime value=& quot;289381935524" /> <value unit="T/MM3" xsi:type ="PQ" value="0.7" /> <interpretationCode codeSystem="local" code="*" /> < referenceRange> <observationRange> <text>1-4.8& lt;/text> </observationRange> </referenceRange& gt; </observation> </component> <component> <observation moodCode="EVN" classCode="OBS"> <templateId root="2.16.840.1.104099.10.20.22.4.2" /> <id nullFlavor="NA" /> <code codeSystem=&quot ;local" code="100.1400" displayName="MONOCYTES # (AUTO)&quot ; /> <statusCode code="completed" /> < effectiveTime value="864734321837" /> <value unit=&quot ;T/MM3" xsi:type="PQ" value="0.6" /> < referenceRange> <observationRange> <text> 0-0.8</text> </observationRange> </ referenceRange> </observation> </component> < component> <observation moodCode="EVN" classCode=" OBS"> <templateId root="2.16.840.1.214858.10.20.22.4.2& quot; /> <id nullFlavor="NA" /> <code codeSystem="local" code="100.1450" displayName=" EOSINOPHILS # (AUTO)" /> <statusCode code="completed" /> <effectiveTime value="760268272606" /> & lt;value unit="T/MM3" xsi:type="PQ" value="0.0" /& gt; <referenceRange> <observationRange> <text>0-0.5</text> </observationRange> </referenceRange> </observation> </component> <component> <observation moodCode="EVN" classCode="OBS"> <templateId root=" 2.16.840.1.390022.10.20.22.4.2" /> <id nullFlavor="NA& quot; /> <code codeSystem="local" code="100.1500& quot; displayName="BASOPHILS # (AUTO)" /> <statusCode code="completed" /> <effectiveTime value=" 777581237522" /> <value unit="T/MM3" xsi:type=& quot;PQ" value="0.0" /> <referenceRange> <observationRange> <text>0-0.2</text> </observationRange> </referenceRange> </ observation> </component> <component> < observation moodCode="EVN" classCode="OBS"> < templateId root="2.16.840.1.048700.10.20.22.4.2" /> < id nullFlavor="NA" /> <code codeSystem="local&quot ; code="100.1525" displayName="IMMATURE GRANULOCYTE # (AUTO)&quot ; /> <statusCode code="completed" /> < effectiveTime value="692432153034" /> <value unit=&quot ;T/MM3" xsi:type="PQ" value="0.01" /> < referenceRange> <observationRange> <text> 0.00-0.03</text> </observationRange> </ referenceRange> </observation> </component> </ organizer> </entry> <entry> <organizer moodCode="EVN " classCode="BATTERY"> <templateId root=" 2.16.840.1.310492.10.20.22.4.1" /> <id nullFlavor="NA&quot ; /> <code codeSystem="local" code="LBGM" displayName="L900.0530" /> <statusCode code="completed " /> <component> <observation moodCode="EVN& quot; classCode="OBS"> <templateId root=" 2.16.840.1.044746.10.20.22.4.2" /> <id nullFlavor="NA& quot; /> <code codeSystem="local" code="850.0100& quot; displayName="Glucometer" /> <statusCodecode=&quot ;completed" /> <effectiveTime value="062817232950&quot ; /> <value unit="mg/dL" xsi:type="PQ" value=&quot ;145" /> <referenceRange> <observationRange > <text>65-110</text> </ observationRange> </referenceRange> </observation&gt ; </component> </organizer> </entry> <entry> & lt;organizer moodCode="EVN" classCode="BATTERY"> &lt ;templateId root="2.16.840.1.607789.10.20.22.4.1" /> <id nullFlavor="NA" /> <code codeSystem="local" code= "LBGM" displayName="L900.0530" /> <statusCode code="completed" /> <component> <observation moodCode="EVN" classCode="OBS"> <templateId root="2.16.840.1.080141.10.20.22.4.2" /> <id nullFlavor= "NA" /> <code codeSystem="local" code=" 850.0100" displayName="Glucometer" /> <statusCode code="completed" /> <effectiveTime value=" 499757959260" /> <value unit="mg/dL" xsi:type=& quot;PQ" value="164" /> <referenceRange> <observationRange> <text>65-110</text> </observationRange> </referenceRange> </ observation> </component> </organizer> </entry> & lt;entry> <organizer moodCode="EVN"classCode="BATTERY& quot;> <templateId root="2.16.840.1.049810.10.20.22.4.1" /& gt; <id nullFlavor="NA" /> <code codeSystem=" local" code="LBGM" displayName="L900.0530" /> & lt;statusCode code="completed" /> <component> &lt ;observation moodCode="EVN" classCode="OBS"> &lt ;templateId root="2.16.840.1.469851.10.20.22.4.2" /> < idnullFlavor="NA" /> <code codeSystem="local&quot ; code="850.0100" displayName="Glucometer" /> & lt;statusCode code="completed" /> <effectiveTime value= "415403932058" /> <value unit="mg/dL" xsi: type="PQ" value="285" /> <referenceRange>& lt;observationRange> <text>65-110</text> </observationRange> </referenceRange> </ observation> </component> </organizer> </entry> & lt;entry> <organizer moodCode="EVN" classCode="BATTERY& quot;> <templateId root="2.16.840.1.336952.10.20.22.4.1" /& gt; <id nullFlavor="NA" /> <code codeSystem=" local" code="LBGM" displayName="L900.0530" /> & lt;statusCode code="completed" /> <component> &lt ;observation moodCode="EVN" classCode="OBS">< templateId root="2.16.840.1.248771.10.20.22.4.2" /> < id nullFlavor="NA" /> <code codeSystem="local&quot ; code="850.0100" displayName="Glucometer" /> & lt;statusCode code="completed" /> <effectiveTime value= "945237207963" /> <value unit="mg/dL" xsi: type="PQ" value="256" /> <referenceRange> <observationRange> <text>65-110</text&gt ; </observationRange> </referenceRange> & lt;/observation> </component> </organizer> </entry&gt ; <entry> <organizer moodCode="EVN" classCode=" BATTERY"> <templateId root="2.16.840.1.153344.10.20.22.4.1& quot; /> <id nullFlavor="NA" /> <code codeSystem ="local" code="LCBC" displayName="L100.0050" /&gt ; <statusCode code="completed" /> <component> <observation moodCode="EVN" classCode="OBS"> <templateId root="2.16.840.1.178749.10.20.22.4.2" /> <id nullFlavor="NA" /> <code codeSystem=" local" code="100.0150" displayName="WBC - WHITE BLOOD COUNT& quot; /> <statusCode code="completed" /> & lt;effectiveTime value="400255955147" /> <value unit=& quot;T/MM3" xsi:type="PQ" value="5.4" /> & lt;referenceRange> <observationRange> <text& gt;4.5-11.0</text> </observationRange> </ referenceRange> </observation> </component> < component> <observation moodCode="EVN" classCode="OBS& quot;> <templateId root="2.16.840.1.671013.10.20.22.4.2&quot ; /> <id nullFlavor="NA" /> <code codeSystem="local" code="100.0250" displayName="RED BLOOD COUNT" /> <statusCode code="completed" /&gt ; <effectiveTime value="429973034191" /> < value unit="M/MM3" xsi:type="PQ" value="3.35" /&gt ; <interpretationCode codeSystem="local" code="*&quot ; /> <referenceRange> <observationRange> <text>4.00-5.20</text> </observationRange&gt ; </referenceRange> </observation> </component > <component> <observation moodCode="EVN" classCode="OBS"> <templateId root=" 2.16.840.1.209330.10.20.22.4.2" /> <id nullFlavor="NA& quot; /> <code codeSystem="local" code="100.0300& quot; displayName="HGB - HEMOGLOBIN" /> <statusCode code=&quot ;completed" /> <effectiveTime value="158856057990&quot ; /> <value unit="GM/DL" xsi:type="PQ" value= "9.7" /> <interpretationCode codeSystem="local& quot; code="*" /> <referenceRange> < observationRange> <text>12-16</text> < /observationRange> </referenceRange> </observation& gt; </component> <component> <observation moodCode="EVN" classCode="OBS"> <templateId root="2.16.840.1.879761.10.20.22.4.2" /> <id nullFlavor ="NA" /> <code codeSystem="local" code=" 100.0400" displayName="HCT - HEMATOCRIT" /> < statusCode code="completed" /> <effectiveTime value=& quot;690957232276" /> <value unit="%" xsi: type="PQ" value="31.8" /> < interpretationCode codeSystem="local" code="*" /> <referenceRange> <observationRange> < text>36-46</text> </observationRange> </ referenceRange> </observation> </component> < component> <observation moodCode="EVN" classCode=" OBS"> <templateId root="2.16.840.1.341352.10.20.22.4.2& quot; /> <id nullFlavor="NA" /> <code codeSystem="local" code="100.0550" displayName="MEAN CORPUSCULAR VOLUME" /> <statusCode code="completed&quot ; /> <effectiveTime value="367067719825" /> <value unit="UM3" xsi:type="PQ" value="94.9" /> <referenceRange> <observationRange> <text>80-100</text> </observationRange> </referenceRange> </observation> </component> & lt;component> <observation moodCode="EVN" classCode=&quot ;OBS"> <templateId root="2.16.840.1.916244.10.20.22.4.2& quot; /> <id nullFlavor="NA" /> <code codeSystem="local" code="100.0600" displayName="MEAN CORPUSCULAR HGB" /> <statusCode code="completed" / > <effectiveTime value="170467214550" /> & lt;value unit="UUG" xsi:type="PQ" value="29.0" /& gt; <referenceRange> <observationRange> <text>26-34</text> </observationRange> </referenceRange> </observation> </component> <component> <observation moodCode="EVN" classCode="OBS"> <templateId root=" 2.16.840.1.090684.10.20.22.4.2" /> <id nullFlavor="NA& quot; /> <code codeSystem="local" code="100.0650& quot; displayName="MEAN CORPUSCULAR HGB CONC([facility]" /> < statusCode code="completed" /> <effectiveTime value=& quot;768621816640" /> <value unit="GM/DL" xsi:type ="PQ" value="30.5" /> <interpretationCode codeSystem="local" code="*" /> < referenceRange> <observationRange> <text> 31-37</text> </observationRange> </referenceRange> </observation> </component> <component> <observation moodCode="EVN" classCode="OBS"> <templateIdroot="2.16.840.1.136187.10.20.22.4.2" /> <id nullFlavor="NA" /> <code codeSystem="local& quot; code="100.0750" displayName="RDW STANDARD DEVIATION" / > <statusCode code="completed" /> < effectiveTime value="932497560702" /> <value unit=&quot ;FL" xsi:type="PQ" value="55.6" /> < interpretationCode codeSystem="local" code="*" /> <referenceRange> <observationRange> <text>36.9- 50.2</text> </observationRange> </ referenceRange> </observation> </component> < component> <observation moodCode="EVN" classCode=" OBS"> <templateId root="2.16.840.1.310783.10.20.22.4.2& quot; /> <id nullFlavor="NA" /> < codecodeSystem="local" code="100.0850" displayName=" PLT - PLATELET COUNT" /> <statusCode code="completed& quot; /> <effectiveTime value="409787422087" /> <value unit="T/MM3" xsi:type="PQ" value="224& quot; /> <referenceRange> <observationRange> <text>130-400</text> </observationRange& gt; </referenceRange> </observation> </ component> <component> <observation moodCode="EVN& quot; classCode="OBS"> <templateId root=" 2.16.840.1.259532.10.20.22.4.2" /> <id nullFlavor="NA& quot; /> <code codeSystem="local" code="100.0950& quot; displayName="MEAN PLATELET VOLUME" /> <statusCode code="completed" /> <effectiveTime value=" 187098881001" /> <value unit="UM3" xsi:type=" PQ" value="9.2" /> <interpretationCode codeSystem= "local" code="*" /> <referenceRange> <observationRange> <text>9.4-12.4</text> </observationRange> </referenceRange> </ observation> </component> <component> < observation moodCode="EVN"classCode="OBS"> < templateId root="2.16.840.1.014038.10.20.22.4.2" /> < id nullFlavor="NA" /> <code codeSystem="local&quot ; code="100.1050" displayName="NEUTROPHILS % (AUTO)&quot ; /> <statusCode code="completed" /> < effectiveTime value="138933005412" /> <value unit=&quot ;%" xsi:type="PQ" value="76.6" /> & lt;interpretationCode codeSystem="local" code="*" /> <referenceRange> <observationRange> & lt;text>33-66</text> </observationRange> </ referenceRange> </observation> </component> < component> <observation moodCode="EVN" classCode=" OBS"> <templateId root="2.16.840.1.644746.10..22.4.2& quot; /> <id nullFlavor="NA" /> <code codeSystem="local" code="100.1100" displayName=" LYMPHOCYTES % (AUTO)" /> <statusCode code=" completed" /> <effectiveTime value="339042030591" /> <value unit="%" xsi:type="PQ" value=& quot;13.5" /> <interpretationCode codeSystem="local" code= "*" /> <referenceRange> < observationRange> <text>23-45</text></ observationRange> </referenceRange> </observation&gt ; </component> <component> <observation moodCode ="EVN" classCode="OBS"> <templateId root=& quot;2.16.840.1.639527.10.20.22.4.2" /> <id nullFlavor=&quot ;NA" /> <code codeSystem="local" code=" 100.1150" displayName="MONOCYTES % (AUTO)" /> <statusCode code="completed" /> <effectiveTime value="790025136688" /> <value unit="%& quot; xsi:type="PQ" value="9.1" /> < interpretationCode codeSystem="local" code="*" /> <referenceRange> <observationRange> <text& gt;0-9.0</text> </observationRange> </ referenceRange> </observation> </component> < component> <observation moodCode="EVN" classCode=" OBS"> <templateId root="2.16.840.1.307941.10.20.22.4.2&quot ; /> <id nullFlavor="NA" /> <code codeSystem="local" code="100.1200" displayName=" EOSINOPHILS % (AUTO)" /> <statusCode code=" completed" /> <effectiveTime value="953729075130" /> <value unit="%" xsi:type="PQ" value="0.6" /> <referenceRange> < observationRange> <text>0-4</text> </ observationRange> </referenceRange> </observation&gt ; </component> <component> <observation moodCode=& quot;EVN" classCode="OBS"> <templateId root=" 2.16.840.1.363913.10.20.22.4.2" /> <id nullFlavor="NA& quot; /> <code codeSystem="local" code="100.1250& quot; displayName="BASOPHILS % (AUTO)" /> < statusCode code="completed" /> <effectiveTime value=& quot;819566116092" /> <value unit="%" xsi: type="PQ" value="0.2" /> <referenceRange> <observationRange> <text>0-2</text> </observationRange> </referenceRange> &lt ;/observation> </component> <component> < observation moodCode="EVN" classCode="OBS"> < templateId root="2.16.840.1.903257.10.20.22.4.2" /> < id nullFlavor="NA" /> <code codeSystem="local&quot ; code="100.1275" displayName="IMMATURE GRANULOCYTE % ( AUTO)" /> <statusCode code="completed" /> <effectiveTime value="215993437839" /> <value unit="%" xsi:type="PQ" value="0.0" /> <referenceRange> <observationRange> <text>0.0-0.5</text> </observationRange> </ referenceRange> </observation> </component> < component> <observation moodCode="EVN" classCode=" OBS"> <templateId root="2.16.840.1.337972.10.20.22.4.2& quot; /><id nullFlavor="NA" /> <code codeSystem=& quot;local" code="100.1300" displayName="NEUTROPHILS # (AUTO )" /> <statusCode code="completed" /> <effectiveTime value="036586221528" /> <valueunit=& quot;T/MM3" xsi:type="PQ" value="4.1" /> & lt;referenceRange> <observationRange> <text& gt;1.8-7.7</text> </observationRange> </ referenceRange> </observation> </component> < component> <observation moodCode="EVN" classCode=" OBS"> <templateId root="2.16.840.1.861148.10.20.22.4.2& quot; /> <id nullFlavor="NA" /> <code codeSystem="local" code="100.1350" displayName=" LYMPHOCYTES # (AUTO)" /> <statusCode code="completed& quot; /> <effectiveTime value="012859098119" /> <value unit="T/MM3" xsi:type="PQ" value="0.7& quot; /> <interpretationCodecodeSystem="local" code=& quot;*" /> <referenceRange> < observationRange> <text>1-4.8</text> < /observationRange> </referenceRange> </observation& gt; </component> <component> <observation moodCode="EVN" classCode="OBS"> <templateId root="2.16.840.1.844559.10.20.22.4.2" /> <id nullFlavor ="NA" /> <code codeSystem="local" code=" 100.1400" displayName="MONOCYTES # (AUTO)" /> < statusCode code="completed" /> <effectiveTime value=& quot;025558359159" /> <value unit="T/MM3" xsi:type ="PQ" value="0.5" /> <referenceRange> <observationRange> <text>0-0.8</text> </observationRange></referenceRange> </ observation> </component> <component> < observation moodCode="EVN" classCode="OBS"> < templateId root="2.16.840.1.934971.10.20.22.4.2" /> < id nullFlavor="NA" /> <code codeSystem="local&quot ; code="100.1450" displayName="EOSINOPHILS # (AUTO)" /> <statusCode code="completed" /> < effectiveTime value="431875167069" /> <value unit=&quot ;T/MM3" xsi:type="PQ" value="0.0" /> < referenceRange> <observationRange> <text> 0-0.5</text> </observationRange> </ referenceRange> </observation> </component> < component> <observation moodCode="EVN" classCode=" OBS"> <templateId root="2.16.840.1.068894.10.20.22.4.2& quot; /> <id nullFlavor="NA" /> <code codeSystem= "local" code="100.1500" displayName="BASOPHILS # (AUTO) " /> <statusCode code="completed" /> & lt;effectiveTime value="465814796061" /> <value unit=& quot;T/MM3" xsi:type="PQ" value="0.0" /> & lt;referenceRange> <observationRange> <text>0-0.2 </text> </observationRange> </referenceRange& gt; </observation> </component> <component> <observation moodCode="EVN" classCode="OBS"> <templateId root="2.16.840.1.717138.10.20.22.4.2" /> <id nullFlavor="NA" /> <codecodeSystem=" local" code="100.1525" displayName="IMMATURE GRANULOCYTE # ( AUTO)" /> <statusCode code="completed" /> <effectiveTime value="566226232391" /> <value unit="T/MM3" xsi:type="PQ" value="0.00" /> <referenceRange> <observationRange> <text >0.00-0.03</text> </observationRange> </ referenceRange> </observation> </component> </ organizer> </entry> <entry> <organizer moodCode="EVN " classCode="BATTERY"> <templateId root=" 2.16.840.1.795082.10.20.22.4.1" /> <id nullFlavor="NA&quot ; /> <code codeSystem="local" code="LBMP" displayName="L200.0050" /> <statusCode code="completed " /> <component> <observation moodCode="EVN& quot; classCode="OBS"> <templateId root=" 2.16.840.1.241923.10.20.22.4.2" /> <id nullFlavor="NA& quot; /> <code codeSystem="local" code="300.0400& quot; displayName="FUNGAL CULTURE." /> <statusCode code ="completed" /> <effectiveTime value="731321371827 " /> <value unit="MG/DL" xsi:type="PQ" value="0.8" /> <referenceRange> < observationRange><text>0.7-1.2</text> </ observationRange> </referenceRange> </observation&gt ; </component> <component> <observation moodCode ="EVN" classCode="OBS"> <templateId root=& quot;2.16.840.1.025899.10.20.22.4.2" /> <id nullFlavor=&quot ;NA" /> <code codeSystem="local" code=" 300.0450" displayName="FUNGAL CULTURE, BLOOD." /> &lt ;statusCode code="completed" /> <effectiveTime value=& quot;130098685680" /> <value unit="RATIO" xsi:type ="PQ" value="26" /> <referenceRange> <observationRange> <text>6-26</text> </observationRange> </referenceRange> </ observation> </component> <component> < observation moodCode="EVN" classCode="OBS"> < templateId root="2.16.840.1.670020.10..22.4.2" /> < id nullFlavor="NA" /> <code codeSystem="local&quot ; code="300.0100" displayName="NA - Sodium" /> & lt;statusCode code="completed" /> <effectiveTime value= "014554950488" /> <value unit="MEQ/L" xsi: type="PQ" value="140" /> <referenceRange> <observationRange> <text>134-144</text> </observationRange> </referenceRange> &lt ;/observation> </component> <component> < observation moodCode="EVN" classCode="OBS"> < templateId root="2.16.840.1.647747.10.20.22.4.2" /> < id nullFlavor="NA" /> <code codeSystem="local&quot ; code="300.0150" displayName="Potassium" /> &lt ;statusCode code="completed" /> <effectiveTime value=& quot;570401045961" /> <value unit="MEQ/L" xsi:type ="PQ" value="4.4" /> <referenceRange> <observationRange> <text>3.6-5</text> & lt;/observationRange> </referenceRange> </ observation> </component> <component> < observation moodCode="EVN" classCode="OBS"> < templateId root="2.16.840.1.431234.10.20.22.4.2" /> < id nullFlavor="NA" /> <code codeSystem="local&quot ; code="300.0200" displayName="Chloride" /> < statusCode code="completed" /> <effectiveTime value=& quot;772752832290" /> <value unit="MEQ/L" xsi:type ="PQ" value="108" /> <interpretationCode codeSystem="local" code="*" /> < referenceRange> <observationRange> <text> 98-107</text> </observationRange> </referenceRange& gt; </observation> </component> <component> <observation moodCode="EVN" classCode="OBS"> <templateId root="2.16.840.1.521752.10.20.22.4.2" /> <id nullFlavor="NA" /> <code codeSystem=&quot ;local" code="300.0250" displayName="CO2 - Carbon Dioxide& quot; /> <statusCode code="completed" /> & lt;effectiveTime value="219517833237" /> <value unit=& quot;MEQ/L" xsi:type="PQ" value="26" /> &lt ;referenceRange> <observationRange> <text&gt ;22-30</text> </observationRange> </ referenceRange> </observation> </component> < component> <observation moodCode="EVN" classCode=" OBS"> <templateId root="2.16.840.1.686163.10.20.22.4.2& quot; /> <id nullFlavor="NA" /> <code codeSystem="local" code="300.0300" displayName="Anion Gap"/> <statusCode code="completed" /> <effectiveTime value="467904156537" /> <value unit ="MEQ/L" xsi:type="PQ" value="6" /> & lt;referenceRange> <observationRange> <text& gt;5-15</text> </observationRange> </ referenceRange> </observation> </component> < component> <observation moodCode="EVN" classCode=" OBS"> <templateId root="2.16.840.1.803047.10.20.22.4.2& quot; /> <id nullFlavor="NA" /> <code codeSystem="local" code="300.0350" displayName="BUN - Blood Urea Nitrogen" /> <statusCode code="completed&quot ; /> <effectiveTime value="103112389572" /> <value unit="MG/DL" xsi:type="PQ" value="21.0&quot ; /> <interpretationCode codeSystem="local" code=" *" /> <referenceRange> <observationRange> <text>7-17</text> </observationRange&gt ; </referenceRange> </observation> </ component> <component> <observation moodCode="EVN& quot;classCode="OBS"> <templateId root=" 2.16.840.1.884299.10..22.4.2" /> <id nullFlavor="NA& quot; /> <code codeSystem="local" code="300.0410& quot; displayName="Glomerular Filtration Rate" /> < statusCode code="completed" /> <effectiveTime value=& quot;802777375118" /> <value unit="" xsi:type=& quot;PQ" value="71" /> <referenceRange> <observationRange> <text>NRG</text> </observationRange> </referenceRange> </ observation> </component> <component> < observation moodCode="EVN" classCode="OBS"> < templateId root="2.16.840.1.046024.10..22.4.2" /> <id nullFlavor="NA" /> <code codeSystem="local" code="300.0500" displayName="Glucose" /> < statusCode code="completed" /> <effectiveTime value=& quot;753488610112" /> <value unit="MG/DL" xsi:type ="PQ" value="168" /> <interpretationCode codeSystem="local" code="*" /> < referenceRange> <observationRange> <text> 65-110</text> </observationRange> </ referenceRange> </observation> </component> < component> <observation moodCode="EVN" classCode=" OBS"> <templateId root="2.16.840.1.563653.10.20.22.4.2& quot; /> <id nullFlavor="NA" /> <code codeSystem="local" code="300.2000" displayName=" Osmolality,Calculated" /> <statusCode code="completed& quot; /> <effectiveTime value="002398671862" /> <value unit="MOSM/KG" xsi:type="PQ" value="276 " /> <referenceRange> <observationRange&gt ; <text>261-280</text> </observationRange > </referenceRange> </observation> </ component> <component> <observation moodCode="EVN& quot; classCode="OBS"> <templateId root=" 2.16.840.1.005409.10.20.22.4.2" /> <id nullFlavor="NA& quot; /> <code codeSystem="local" code="300.2200& quot; displayName="Calcium" /> <statusCode code=" completed" /> <effectiveTimevalue="485757277978" / > <value unit="MG/DL" xsi:type="PQ" value=& quot;8.7" /> <referenceRange> < observationRange> <text>8.4-10.2</text> </ observationRange> </referenceRange> </observation&gt ; </component> <component> <observation moodCode ="EVN" classCode="OBS"> <templateId root=& quot;[id number]" /> <id nullFlavor=&quot ;NA" /> <code codeSystem="local" code=" 300.0095" displayName="LICTERUS" /> <statusCode code="completed" /> <effectiveTime value=" [id number]" /> <value unit="" xsi:type="PQ& quot; value="< 2" /> <referenceRange> <observationRange> <text>0-7</text> </observationRange> </referenceRange></observation& gt; </component> <component> <observation moodCode="EVN" classCode="OBS"> <templateId root="[id number]" /> <id nullFlavor ="NA" /> <code codeSystem="local" code=" 300.0096" displayName="LHEMOLYSIS" /> <statusCode code="completed" /> <effectiveTime value=" 185301134259" /> <value unit="" xsi:type="PQ& quot; value="< 15" /> <referenceRange> <observationRange> <text>0-25</text> </observationRange> </referenceRange> </ observation> </component> <component> < observation moodCode="EVN" classCode="OBS"> < templateId root="2.16.840.1.565237.10.20.22.4.2"/> <id nullFlavor="NA" /> <code codeSystem="local" code="300.0097" displayName="LTURBIDITY" /> < statusCode code="completed" /> <effectiveTime value=& quot;708373172076" /> <value unit="" xsi:type=& quot;PQ" value="< 20" /> <referenceRange&gt ; <observationRange> <text>0-20</text&gt ; </observationRange> </referenceRange> </ observation> </component> </organizer> </entry> & lt;entry> <organizer moodCode="EVN" classCode="BATTERY& quot;> <templateId root="2.16.840.1.590144.10.20.22.4.1" /& gt; <id nullFlavor="NA" /> <code codeSystem=" local"code="LBGM" displayName="L900.0530" /> & lt;statusCode code="completed" /> <component> &lt ;observation moodCode="EVN" classCode="OBS"> &lt ;templateId root="2.16.840.1.220680.10.20.22.4.2" /><id nullFlavor="NA" /> <code codeSystem="local" code="850.0100" displayName="Glucometer" /> < statusCode code="completed" /> <effectiveTime value=& quot;104960901195" /> <value unit="mg/dL" xsi:type ="PQ" value="202" /> <referenceRange> <observationRange> <text>65-110</text> </observationRange> </referenceRange> </ observation> </component></organizer> </entry> < entry> <organizer moodCode="EVN" classCode="BATTERY&quot ;> <templateId root="2.16.840.1.499556.10.20.22.4.1" /> <id nullFlavor="NA" /> <code codeSystem="local& quot; code="LBGM" displayName="L900.0530" /> < statusCode code="completed" /> <component> < observation moodCode="EVN" classCode="OBS"> < templateId root="2.16.840.1.113746.10.20.22.4.2" /> < id nullFlavor="NA" /> <code codeSystem="local&quot ; code="850.0100" displayName="Glucometer" /> & lt;statusCode code="completed" /> <effectiveTime value=" 276494326240" /> <value unit="mg/dL" xsi:type=& quot;PQ" value="214" /> <referenceRange> <observationRange> <text>65-110</text> </observationRange> </referenceRange> </ observation> </component> </organizer> </entry> & lt;entry> <organizer moodCode="EVN" classCode="BATTERY& quot;> <templateId root="2.16.840.1.715619.10.20.22.4.1" /& gt; <id nullFlavor="NA" /> <code codeSystem=" local" code="LBGM" displayName="L900.0530" /> & lt;statusCode code="completed" /> <component> &lt ;observation moodCode="EVN" classCode="OBS"> &lt ;templateId root="2.16.840.1.536087.10..22.4.2" /> < id nullFlavor="NA" /> <code codeSystem="local&quot ; code="850.0100" displayName="Glucometer" /> & lt;statusCode code="completed" /> <effectiveTime value= "257944019794" /> <value unit="mg/dL" xsi: type="PQ" value="229" /> <referenceRange> <observationRange> <text>65-110</text&gt ; </observationRange> </referenceRange> & lt;/observation> </component> </organizer> </entry&gt ; <entry> <organizer moodCode="EVN" classCode=" BATTERY"> <templateId root="2.16.840.1.896914.10.20.22.4.1& quot; /> <id nullFlavor="NA" /> <code codeSystem ="local" code="LBGM" displayName="L900.0530" /&gt ; <statusCode code="completed" /> <component> <observation moodCode="EVN" classCode="OBS"> <templateId root="2.16.840.1.320324.10.20.22.4.2" /> <id nullFlavor="NA" /><code codeSystem="local&quot ; code="850.0100" displayName="Glucometer" /> & lt;statusCode code="completed" /> <effectiveTime value= "904774218254" /> <value unit="mg/dL" xsi: type="PQ" value="290" /> <referenceRange> <observationRange> <text>65-110</text&gt ; </observationRange> </referenceRange> < /observation> </component> </organizer> </entry> <entry> <organizer moodCode="EVN" classCode="BATTERY& quot;> <templateId root="2.16.840.1.144657.10.20.22.4.1" /& gt; <id nullFlavor="NA" /> <code codeSystem=" local" code="LBGM" displayName="L900.0530" /> < statusCode code="completed" /> <component> < observation moodCode="EVN" classCode="OBS"> < templateId root="2.16.840.1.008078.10.20.22.4.2" /> < id nullFlavor="NA" /> <code codeSystem="local&quot ; code="850.0100" displayName="Glucometer" /> & lt;statusCode code="completed" /> <effectiveTime value= "235004499275" /> <value unit="mg/dL" xsi: type="PQ" value="176" /> <referenceRange> <observationRange> <text>65-110</text&gt ; </observationRange> </referenceRange> & lt;/observation> </component> </organizer> </entry&gt ; <entry> <organizer moodCode="EVN" classCode=" BATTERY"> <templateId root="2.16.840.1.658957.10.20.22.4.1& quot; /> <id nullFlavor="NA" /> <code codeSystem ="local" code="LBGM" displayName="L900.0530" /&gt ; <statusCode code="completed" /> <component> <observation moodCode="EVN" classCode="OBS"> <templateId root="2.840.1.627917.10.20.22.4.2" /> <id nullFlavor="NA" /> <code codeSystem=" local" code="850.0100" displayName="Glucometer" /> <statusCode code="completed" /> < effectiveTime value="011239548842" /> <value unit="mg/dL& quot; xsi:type="PQ" value="157" /> < referenceRange> <observationRange> <text> 65-110</text> </observationRange> </ referenceRange> </observation> </component> </ organizer> </entry> <entry> <organizer moodCode="EVN " classCode="BATTERY"> <templateId root=" 2.16.840.1.045918.10.20.22.4.1" /> <id nullFlavor="NA&quot ; /> <code codeSystem="local" code="LHGB" displayName="L100.0298" /> <statusCode code="completed " /> <component> <observation moodCode="EVN& quot; classCode="OBS"> <templateId root=" 2.16.840.1.028114.10.20.22.4.2" /> <id nullFlavor="NA" /> <code codeSystem="local" code="100.0300" displayName="HGB - HEMOGLOBIN" /> <statusCode code=& quot;completed" /> <effectiveTime value="652668195021& quot; /> <value unit="GM/DL" xsi:type="PQ" value="9.4" /> <interpretationCode codeSystem=" local" code="*" /> <referenceRange> < observationRange> <text>12-16</text> < /observationRange> </referenceRange> </observation& gt; </component> </organizer> </entry> <entry&gt ; <organizer moodCode="EVN" classCode="BATTERY"> <templateId root="2.16.840.1.123185.10.20.22.4.1" /> & lt;id nullFlavor="NA" /> <code codeSystem="local&quot ; code="LBMP" displayName="L200.0050" /> < statusCode code="completed" /> <component> < observation moodCode="EVN" classCode="OBS"> < templateId root="2.16.840.1.405390.10.20.22.4.2" /> < id nullFlavor="NA" /> <code codeSystem="local&quot ; code="300.0400" displayName="FUNGAL CULTURE." /> <statusCode code="completed" /> <effectiveTime value=& quot;116488334915" /> <value unit="MG/DL" xsi:type ="PQ" value="0.9" /> <referenceRange> <observationRange> <text>0.7-1.2</text> </observationRange> </referenceRange> </ observation> </component> <component> < observation moodCode="EVN" classCode="OBS"> < templateId root="2.16.840.1.351727.10.20.22.4.2" /> < id nullFlavor="NA" /> <code codeSystem="local&quot ; code="300.0450" displayName="FUNGAL CULTURE, BLOOD." /&gt ; <statusCode code="completed" /> < effectiveTime value="331896743594" /> <value unit=&quot ;RATIO" xsi:type="PQ" value="26" /> < referenceRange> <observationRange> <text> 6-26</text> </observationRange> </ referenceRange> </observation> </component> < component> <observation moodCode="EVN" classCode="OBS& quot;> <templateId root="2.16.840.1.718530.10.20.22.4.2&quot ; /> <id nullFlavor="NA" /> <code codeSystem="local" code="300.0100" displayName="NA - Sodium" /> <statusCode code="completed" /> <effectiveTime value="451099608635" /> <value unit="MEQ/L" xsi:type="PQ" value="141" /> <referenceRange> <observationRange> <text&gt ;134-144</text> </observationRange> </ referenceRange> </observation> </component> < component> <observation moodCode="EVN" classCode=" OBS"> <templateId root="2.16.840.1.515444.10.20.22.4.2& quot; /> <id nullFlavor="NA" /> <code codeSystem="local" code="300.0150" displayName=" Potassium" /> <statusCode code="completed" /> <effectiveTime value="988462725960" /> <value unit="MEQ/L" xsi:type="PQ" value="4.2" /> <referenceRange> <observationRange> &lt ;text>3.6-5</text> </observationRange> </ referenceRange> </observation> </component> < component> <observation moodCode="EVN" classCode=" OBS"> <templateId root="2.16.840.1.615963.10.20.22.4.2& quot; /> <id nullFlavor="NA" /> <code codeSystem="local" code="300.0200" displayName=" Chloride" /> <statusCodecode="completed" /> <effectiveTime value="630311781148" /> <value unit ="MEQ/L" xsi:type="PQ" value="105" /> <referenceRange> <observationRange> <text >98-107</text> </observationRange> </ referenceRange> </observation> </component> < component> <observation moodCode="EVN" classCode=" OBS"> <templateId root="2.16.840.1.366494.10.20.22.4.2& quot; /> <id nullFlavor="NA" /> <code codeSystem="local" code="300.0250" displayName="CO2 - Carbon Dioxide" /> <statusCode code="completed" /& gt; <effectiveTime value="811488351788" /> &lt ;value unit="MEQ/L" xsi:type="PQ" value="30" /&gt ; <referenceRange> <observationRange> <text>22-30</text> </observationRange> </ referenceRange> </observation> </component> < component> <observation moodCode="EVN" classCode=" OBS"> <templateId root="2.16.840.1.800883.10.20.22.4.2& quot; /> <id nullFlavor="NA" /> <code codeSystem="local" code="300.0300" displayName="Anion Gap" /> <statusCode code="completed"/> <effectiveTime value="151815530479" /> <value unit ="MEQ/L" xsi:type="PQ" value="6" /> & lt;referenceRange> <observationRange> <text>5-15& lt;/text> </observationRange> </referenceRange& gt; </observation> </component> <component> <observation moodCode="EVN" classCode="OBS">&lt ;templateId root="2.16.840.1.247146.10.20.22.4.2" /> < id nullFlavor="NA" /> <code codeSystem="local&quot ; code="300.0350" displayName="BUN - Blood Urea Nitrogen" /& gt; <statusCode code="completed" /> < effectiveTime value="701907415546" /> <value unit=&quot ;MG/DL" xsi:type="PQ" value="23.0" /> < interpretationCode codeSystem="local" code="*" /> <referenceRange> <observationRange> < text>7-17</text> </observationRange> </ referenceRange> </observation> </component> < component> <observation moodCode="EVN" classCode="OBS& quot;> <templateId root="2.16.840.1.579392.10.20.22.4.2&quot ; /> <id nullFlavor="NA" /> <code codeSystem="local" code="300.0410" displayName=" Glomerular Filtration Rate" /> <statusCode code=" completed" /> <effectiveTime value="460639407182" /> <value unit="" xsi:type="PQ" value=" 62" /> <referenceRange> <observationRange& gt; <text>NRG</text> </observationRange& gt; </referenceRange> </observation> </ component> <component> <observation moodCode="EVN& quot; classCode="OBS"> <templateId root=" 2.16.840.1.903853.10.20.22.4.2" /> <id nullFlavor="NA& quot; /> <code codeSystem="local" code="300.0500& quot; displayName="Glucose" /> <statusCode code=" completed" /> <effectiveTime value="360185931003" /> <value unit="MG/DL" xsi:type="PQ" value=& quot;137" /> <interpretationCode codeSystem="local&quot ; code="*" /> <referenceRange> < observationRange> <text>65-110</text> &lt ;/observationRange> </referenceRange> </observation& gt; </component> <component> <observation moodCode="EVN" classCode="OBS"> <templateId root="2.16.840.1.968923.10.20.22.4.2"/> <id nullFlavor= "NA" /> <code codeSystem="local"code=" 300.2000" displayName="Osmolality,Calculated" /> < statusCode code="completed" /> <effectiveTime value=& quot;760330167387" /> <value unit="MOSM/KG" xsi:type=& quot;PQ" value="277" /> <referenceRange> < observationRange> <text>261-280</text> & lt;/observationRange> </referenceRange> </ observation> </component> <component> < observation moodCode="EVN" classCode="OBS"> < templateId root="2.16.840.1.750611.10.20.22.4.2" /> < id nullFlavor="NA" /> <code codeSystem="local&quot ; code="300.2200" displayName="Calcium" /> < statusCode code="completed" /> <effectiveTime value=& quot;929761699299" /> <value unit="MG/DL" xsi:type ="PQ" value="8.6" /> <referenceRange> <observationRange> <text>8.4-10.2</text> </observationRange> </referenceRange> & lt;/observation> </component> <component> < observation moodCode="EVN" classCode="OBS"> < templateId root="2.16.840.1.049325.10.20.22.4.2" /> < id nullFlavor="NA" /> <code codeSystem="local&quot ; code="300.0095" displayName="LICTERUS" /> < statusCode code="completed" /> <effectiveTime value=& quot;945990404466" /> <value unit=""xsi:type=&quot ;PQ" value="< 2" /> <referenceRange> &lt ;observationRange> <text>0-7</text> </ observationRange> </referenceRange> </observation&gt ; </component> <component> <observation moodCode ="EVN" classCode="OBS"> <templateId root=& quot;2.16.840.1.581772.10.20.22.4.2" /> <id nullFlavor=&quot ;NA" /> <code codeSystem="local" code=" 300.0096" displayName="LHEMOLYSIS" /> <statusCode code="completed" /> <effectiveTime value=" 236704565403" /> <value unit="" xsi:type="PQ& quot; value="< 15" /> <referenceRange> <observationRange> <text>0-25</text> </observationRange> </referenceRange> </ observation> </component> <component> <observation moodCode="EVN" classCode="OBS"> <templateId root="2.16.840.1.103424.10.20.22.4.2" /> <id nullFlavor ="NA" /> <code codeSystem="local" code=" 300.0097" displayName="LTURBIDITY" /> <statusCode code="completed" /> <effectiveTime value=" 329209989578" /> <value unit="" xsi:type="PQ& quot; value="< 20" /> <referenceRange> <observationRange> <text>0-20</text> &lt ;/observationRange> </referenceRange> </observation& gt; </component> </organizer> </entry> <entry&gt ; <organizer moodCode="EVN" classCode="BATTERY"> <templateId root="2.16.840.1.396519.10.20.22.4.1" /> & lt;id nullFlavor="NA" /> <code codeSystem="local&quot ; code="LBGM" displayName="L900.0530" /> < statusCode code="completed" /> <component> < observation moodCode="EVN" classCode="OBS"> < templateId root="2.16.840.1.544850.10..22.4.2" /> < id nullFlavor="NA" /> <codecodeSystem="local&quot ; code="850.0100" displayName="Glucometer" /> < statusCode code="completed" /> <effectiveTime value=& quot;221859782726" /> <value unit="mg/dL" xsi:type ="PQ" value="125" /> <referenceRange> <observationRange> <text>65-110</text> </observationRange> </referenceRange> < /observation> </component> </organizer> </entry> <entry> <organizer moodCode="EVN" classCode="BATTERY& quot;> <templateId root="2.16.840.1.870740.10.20.22.4.1" /& gt; <id nullFlavor="NA" /> <code codeSystem=" local" code="LBGM" displayName="L900.0530" /> & lt;statusCode code="completed" /> <component> &lt ;observation moodCode="EVN" classCode="OBS"> &lt ;templateId root="2.16.840.1.522918.10..22.4.2" /> < id nullFlavor="NA" /> <code codeSystem="local&quot ; code="850.0100" displayName="Glucometer" /> & lt;statusCode code="completed" /> <effectiveTime value= "284143937634" /> <value unit="mg/dL" xsi:type= "PQ" value="179" /> <referenceRange> &lt ;observationRange> <text>65-110</text> & lt;/observationRange> </referenceRange> </ observation> </component> </organizer> </entry> & lt;entry> <organizer moodCode="EVN" classCode="BATTERY& quot;> <templateId root="2.16.840.1.601880.10..22.4.1" /& gt; <id nullFlavor="NA" /> <code codeSystem=" local" code="LBGM" displayName="L900.0530" /> & lt;statusCode code="completed" /> <component> &lt ;observation moodCode="EVN" classCode="OBS"> &lt ;templateId root="2.16.840.1.592481.10..22.4.2" /> < id nullFlavor="NA" /> <code codeSystem="local&quot ; code="850.0100" displayName="Glucometer" /> & lt;statusCode code="completed" /> <effectiveTime value= "866750965628" /> <value unit="mg/dL" xsi: type="PQ" value="239" /> <referenceRange> <observationRange> <text>65-110</text&gt ; </observationRange> </referenceRange> & lt;/observation> </component> </organizer> </entry&gt ; <entry> <organizer moodCode="EVN" classCode=" BATTERY"> <templateId root="2.16.840.1.429292.10.20.22.4.1& quot; /> <id nullFlavor="NA" /> <code codeSystem ="local" code="LBGM" displayName="L900.0530" /&gt ; <statusCode code="completed" /> <component> <observation moodCode="EVN" classCode="OBS"> <templateId root="2.16.840.1.569759.10.20.22.4.2" /> <id nullFlavor="NA" /> <code codeSystem=" local" code="850.0100" displayName="Glucometer" /> <statusCode code="completed" /> < effectiveTime value="982322725283" /> <value unit=&quot ;mg/dL" xsi:type="PQ" value="240" /> < referenceRange> <observationRange> <text>65-110&lt ;/text> </observationRange> </referenceRange&gt ; </observation> </component> </organizer> &lt ;/entry> <entry> <organizer moodCode="EVN" classCode=& quot;BATTERY"> <templateId root=" 2.16.840.1.959998.10.20.22.4.1" /> <id nullFlavor="NA&quot ; /> <code codeSystem="local" code="LBGM" displayName="L900.0530" /> <statusCode code="completed " /> <component> <observation moodCode="EVN& quot; classCode="OBS"> <templateId root=" 2.16.840.1.664196.10.20.22.4.2" /> <id nullFlavor="NA& quot; /> <code codeSystem="local" code="850.0100& quot; displayName="Glucometer" /> <statusCode code=& quot;completed" /> <effectiveTime value="418573530793& quot; /> <value unit="mg/dL" xsi:type="PQ" value="213" /> <referenceRange> < observationRange> <text>65-110</text> &lt ;/observationRange> </referenceRange> </observation> </component> </organizer></entry> <entry> < organizer moodCode="EVN" classCode="BATTERY"> < templateId root="2.16.840.1.012849.10.20.22.4.1" /> <id nullFlavor="NA" /> <code codeSystem="local" code= "LBGM" displayName="L900.0530" /> <statusCode code="completed" /> <component> <observation moodCode="EVN" classCode="OBS"> <templateId root="2.16.840.1.218518.10.20.22.4.2" /> <id nullFlavor ="NA" /> <code codeSystem="local" code=" 850.0100" displayName="Glucometer" /> <statusCode code="completed" /> <effectiveTime value=" 052433910311" /> <value unit="mg/dL" xsi:type=& quot;PQ" value="129" /> <referenceRange> <observationRange> <text>65-110</text> </observationRange> </referenceRange> </ observation> </component> </organizer> </entry>&lt ;entry> <organizer moodCode="EVN" classCode="BATTERY& quot;> <templateId root="2.16.840.1.801356.10.20.22.4.1" /& gt; <id nullFlavor="NA"/> <code codeSystem=" local" code="LBGM" displayName="L900.0530" /> & lt;statusCode code="completed" /> <component> &lt ;observation moodCode="EVN" classCode="OBS"> &lt ;templateId root="2.16.840.1.466326.10.20.22.4.2" /> < id nullFlavor="NA" /> <code codeSystem="local&quot ; code="850.0100" displayName="Glucometer" /> &lt ;statusCode code="completed" /> <effectiveTime value=& quot;299264015041" /> <value unit="mg/dL" xsi:type ="PQ" value="179" /> <referenceRange> <observationRange> <text>65-110</text> </observationRange> </referenceRange> </ observation> </component> </organizer> </entry> & lt;entry> <organizer moodCode="EVN" classCode="BATTERY&quot ;> <templateId root="2.16.840.1.977890.10.20.22.4.1" /> <id nullFlavor="NA" /> <code codeSystem=" local" code="LCBC-MK" displayName="L100.0060" /> & lt;statusCode code="completed" /> <component> &lt ;observation moodCode="EVN" classCode="OBS"> &lt ;templateId root="2.16.840.1.331374.10.20.22.4.2" /> < id nullFlavor="NA" /> <code codeSystem="local&quot ; code="100.0152" displayName="White Blood Count - MK" /&gt ; <statusCode code="completed" /> < effectiveTime value="208109466486" /> <value unit=&quot ;T/MM3" xsi:type="PQ" value="9.0" /> < referenceRange> <observationRange> <text> 4.5-11.0</text> </observationRange> </ referenceRange> </observation> </component> < component> <observation moodCode="EVN" classCode=" OBS"> <templateId root="2.16.840.1.529781.10.20.22.4.2& quot; /> <id nullFlavor="NA" /> <code codeSystem="local" code="100.0252" displayName="Red Blood Count - MK" /> <statusCode code="completed" /> <effectiveTime value="898949827683" /> < value unit="M/MM3" xsi:type="PQ" value="4.27" /&gt ; <referenceRange> <observationRange> <text>4.00-5.20</text> </observationRange> </referenceRange> </observation> </component&gt ; <component> <observation moodCode="EVN" classCode="OBS"> <templateId root=" 2.16.840.1.644101.10.20.22.4.2" /> <id nullFlavor="NA& quot; /> <code codeSystem="local" code="100.0302& quot; displayName="Hemoglobin - MK" /> <statusCode code ="completed" /> <effectiveTime value="234595550875 "/> <value unit="GM/DL" xsi:type="PQ" value="12.6" /> <referenceRange> < observationRange> <text>12-16</text> < /observationRange> </referenceRange> </observation& gt; </component> <component> <observation moodCode="EVN" classCode="OBS"> <templateId root="2.16.840.1.872694.10.20.22.4.2" /> <id nullFlavor ="NA" /> <code codeSystem="local" code=" 100.0402" displayName="Hematocrit - MK" /> < statusCode code="completed" /> <effectiveTime value=& quot;730159415465" /> <value unit="%" xsi:type=& quot;PQ" value="39.0" /> <referenceRange> &lt ;observationRange> <text>36-46</text> &lt ;/observationRange> </referenceRange> </observation& gt; </component> <component> <observation moodCode="EVN" classCode="OBS"> <templateId root="2.16.840.1.307748.10.20.22.4.2" /> <id nullFlavor ="NA" /> <code codeSystem="local" code=" 100.0552" displayName="Mean Corpuscular Volume - MK" /> <statusCode code="completed" /> <effectiveTime value="040609947994" /> <value unit="UM3" xsi: type="PQ" value="91.3" /><referenceRange> <observationRange> <text>80-100</text> </observationRange> </referenceRange> </ observation> </component> <component> < observation moodCode="EVN" classCode="OBS"> < templateId root="2.16.840.1.664797.10.20.22.4.2" /> < id nullFlavor="NA" /> <code codeSystem="local&quot ; code="100.0602" displayName="Mean Corpuscular Hemoglobin-MK& quot; /> <statusCode code="completed" /> & lt;effectiveTime value="549260229594" /> <value unit=& quot;UUG" xsi:type="PQ" value="29.5" /> < referenceRange> <observationRange> <text> 26-34</text> </observationRange> </ referenceRange> </observation> </component> < component> <observation moodCode="EVN" classCode=" OBS"> <templateId root="2.16.840.1.346582.10.20.22.4.2& quot; /> <id nullFlavor="NA" /> <code codeSystem="local" code="100.0652" displayName="Mean Corpuscular HGB Conc-MK" /> <statusCode code="completed " /> <effectiveTime value="335590725821" /> <value unit="GM/DL" xsi:type="PQ" value="32.3& quot; /> <referenceRange> <observationRange> <text>31-37</text> </observationRange> </referenceRange> </observation> </component&gt ; <component> <observation moodCode="EVN" classCode="OBS"> <templateId root=" 2.16.840.1.853862.10.20.22.4.2" /> <id nullFlavor="NA& quot; /> <code codeSystem="local" code="100.0752& quot; displayName="RDW Standard Deviation - MK" /> < statusCode code="completed" /> <effectiveTime value=& quot;445565152503" /> <value unit="FL" xsi:type=& quot;PQ" value="56.8" /><interpretationCode codeSystem=& quot;local" code="*" /> <referenceRange> <observationRange> <text>36.9-50.2</text> </observationRange> </referenceRange> </ observation> </component> <component> < observation moodCode="EVN" classCode="OBS"> < templateId root="2.16.840.1.234538.10.20.22.4.2" /> < id nullFlavor="NA" /> <code codeSystem="local&quot ; code="100.0852" displayName="Platelet Count - MK" /> <statusCode code="completed" /> < effectiveTime value="520558136208" /> <value unit=&quot ;T/MM3" xsi:type="PQ" value="245" /> < referenceRange> <observationRange> <text> 130-400</text> </observationRange> </ referenceRange> </observation> </component> < component> <observation moodCode="EVN" classCode=" OBS"> <templateId root="2.16.840.1.273229.10.20.22.4.2& quot; /> <id nullFlavor="NA" /> <code codeSystem="local" code="100.0952" displayName="Mean Platelet Volume - MK" /> <statusCode code="completed& quot; /> <effectiveTime value="[id number]" /> <value unit="UM3" xsi:type="PQ" value="9.0& quot; /> <interpretationCodecodeSystem="local" code=& quot;*" /> <referenceRange> < observationRange> <text>9.4-12.4</text> & lt;/observationRange> </referenceRange> </ observation> </component> <component> < observation moodCode="EVN" classCode="OBS"> < templateId root="[id number]" /> < id nullFlavor="NA" /> <code codeSystem="local&quot ; code="100.1052" displayName="Neutrophils % (Auto) - MK& quot; /> <statusCode code="completed" /> & lt;effectiveTime value="[id number]" /> <value unit=& quot;%" xsi:type="PQ" value="88.3" /> <interpretationCode codeSystem="local" code="*" /&gt ; <referenceRange> <observationRange> <text>33-66</text> </observationRange> & lt;/referenceRange> </observation> </component> <component> <observation moodCode="EVN" classCode=& quot;OBS"> <templateId root=" 2.16.840.1.022913.10.20.22.4.2" /> <id nullFlavor="NA& quot; /> <code codeSystem="local" code="100.1102& quot; displayName="Lymphocytes % (Auto) - MK" /> & lt;statusCode code="completed" /> <effectiveTime value=& quot;337568024617" /> <value unit="%" xsi: type="PQ" value="4.1" /> <interpretationCode codeSystem="local" code="*" /> < referenceRange> <observationRange> <text> 23-45</text> </observationRange> </referenceRange&gt ; </observation> </component> <component> <observation moodCode="EVN" classCode="OBS"> <templateId root="2.16.840.1.811731.10.20.22.4.2" /> <id nullFlavor="NA" /> <code codeSystem=" local" code="100.1152" displayName="Monocytes/Mixed &#37 ; (Auto)-MK" /> <statusCode code="completed" /&gt ; <effectiveTime value="867557498919" /> <value unit="%" xsi:type="PQ" value="7.6" /> <referenceRange> <observationRange> <text>0-9.0</text> </observationRange> & lt;/referenceRange> </observation> </component> <component> <observation moodCode="EVN" classCode=& quot;OBS"> <templateId root=" 2.16.840.1.827620.10.20.22.4.2" /> <id nullFlavor="NA& quot; /> <code codeSystem="local" code="100.1302& quot; displayName="Neutrophils # (Auto) - MK" /> < statusCode code="completed" /> <effectiveTime value=" 802039982967" /> <value unit="T/MM3" xsi:type=& quot;PQ" value="7.9" /> <interpretationCode codeSystem="local" code="*" /> < referenceRange> <observationRange> <text> 1.8-7.7</text> </observationRange> </ referenceRange> </observation> </component> < component> <observation moodCode="EVN" classCode="OBS&quot ;> <templateId root="2.16.840.1.087638.10.20.22.4.2" /& gt; <id nullFlavor="NA" /> <code codeSystem=& quot;local" code="100.1352" displayName="Lymphocytes # (Auto ) - MK" /> <statusCode code="completed" /> <effectiveTime value="434713638690" /> <value unit="T/MM3" xsi:type="PQ" value="0.4" /> <interpretationCode codeSystem="local" code="*" /&gt ; <referenceRange> <observationRange> <text >1-4.8</text> </observationRange> </ referenceRange> </observation> </component> < component> <observationmoodCode="EVN" classCode="OBS "> <templateId root="2.16.840.1.335853.10..22.4.2& quot; /> <id nullFlavor="NA" /> <code codeSystem="local" code="100.1402" displayName=" Monocytes/Mixed # (Auto)-MK" /> <statusCode code=" completed" /> <effectiveTime value="657153725809" /> <value unit="T/MM3" xsi:type="PQ" value=& quot;0.7" /> <referenceRange> < observationRange> <text>0-0.8</text> </ observationRange> </referenceRange> </observation&gt ; </component> </organizer> </entry> <entry> <organizer moodCode="EVN" classCode="BATTERY"> <templateId root="2.16.840.1.285388.10.20.22.4.1" /> < id nullFlavor="NA" /> <code codeSystem="local" code= "LCMP-A" displayName="L749.2001" /> <statusCode code="completed" /> <component> <observation moodCode="EVN" classCode="OBS"> <templateId root="2.16.840.1.758463.10..22.4.2" /> <id nullFlavor ="NA" /> <code codeSystem="local" code=" 908.3031" displayName="NA - Sodium - AMS" /> < statusCode code="completed" /> <effectiveTime value=& quot;448835368360" /> <value unit="mEq/L" xsi:type ="PQ" value="136" /> <referenceRange> <observationRange> <text>135-144</text> </observationRange> </referenceRange> </ observation> </component> <component> < observation moodCode="EVN" classCode="OBS"> < templateId root="2.16.840.1.369717.10.20.22.4.2" /> < id nullFlavor="NA" /> <code codeSystem="local&quot ; code="908.3033" displayName="Potassium - AMS" /> <statusCode code="completed" /> <effectiveTime value="195367192974" /> <value unit="mEq/L" xsi:type="PQ" value="4.1" /> <referenceRange& gt; <observationRange> <text>3.5-5.2</ text> </observationRange> </referenceRange> </observation> </component> <component> <observation moodCode="EVN" classCode="OBS"> <templateId root="2.16.840.1.679554.10.20.22.4.2" /> <id nullFlavor="NA" /> <code codeSystem=" local" code="908.3035" displayName="Chloride- AMS" /&gt ; <statusCode code="completed" /> < effectiveTime value="517287047961" /> <value unit="mEq /L" xsi:type="PQ" value="98" /> < interpretationCode codeSystem="local" code="*" /> <referenceRange> <observationRange> < text>99-111</text> </observationRange> </ referenceRange> </observation> </component> < component> <observation moodCode="EVN" classCode=" OBS"> <templateId root="2.16.840.1.956091.10.20.22.4.2& quot; /> <idnullFlavor="NA" /> <code codeSystem="local" code="908.3037" displayName="CO2 - Carbon Dioxide-AMS" /> <statusCode code="completed&quot ; /> <effectiveTime value="010121921504" /> <value unit="mEq/L" xsi:type="PQ" value="25" /> <referenceRange> <observationRange> <text>22-31</text> </observationRange> </referenceRange> </observation> </component&gt ; <component> <observation moodCode="EVN" classCode="OBS"> <templateId root=" 2.16.840.1.690608.10.20.22.4.2" /> <id nullFlavor="NA& quot; /> <code codeSystem="local" code="908.3039& quot; displayName="Anion Gap - AMS" /> <statusCode code ="completed" /> <effectiveTime value="724475046005 " /> <value unit="mEq/L" xsi:type="PQ" value="13" /> <referenceRange> < observationRange> <text>3-20</text> </ observationRange> </referenceRange> </observation&gt ; </component> <component> <observation moodCode ="EVN" classCode="OBS"> <templateId root=& quot;2.16.840.1.874134.10.20.22.4.2" /> <id nullFlavor=&quot ;NA" /> <code codeSystem="local" code=" 908.3041" displayName="BUN - Blood Urea Nitrogen -AMS" /> <statusCode code="completed" /> < effectiveTime value="088587144300" /> <value unit=&quot ;mg/dL" xsi:type="PQ" value="38" /> < interpretationCode codeSystem="local" code="*" /> <referenceRange> <observationRange> < text>10-20</text> </observationRange> </ referenceRange> </observation> </component> < component> <observation moodCode="EVN" classCode="OBS& quot;> <templateId root="2.16.840.1.340139.10.20.22.4.2&quot ; /> <id nullFlavor="NA" /> <code codeSystem="local" code="908.3043" displayName=" Creatinine - AMS" /> <statusCode code="completed" /> <effectiveTimevalue="963196414975" /> & lt;value unit="mg/dL" xsi:type="PQ" value="1.27" / > <interpretationCode codeSystem="local" code="*& quot; /> <referenceRange> <observationRange> <text>0.57-1.11</text> </ observationRange> </referenceRange> </observation&gt ; </component> <component> <observation moodCode ="EVN" classCode="OBS"> <templateId root=& quot;2.16.840.1.932239.10.20.22.4.2" /> <id nullFlavor=&quot ;NA" /> <code codeSystem="local" code=" 908.3045" displayName="Glomerular Filtration Rate-AMS" /> <statusCode code="completed" /> < effectiveTime value="836645125370" /> <value unit=&quot ;mL/min" xsi:type="PQ" value="41" /> < interpretationCode codeSystem="local" code="*" /> <referenceRange> <observationRange> < text>>60</text> </observationRange> & lt;/referenceRange> </observation> </component> <component> <observation moodCode="EVN" classCode=& quot;OBS"> <templateId root=" 2.16.840.1.007811.10.20.22.4.2" /> <id nullFlavor="NA& quot; /> <code codeSystem="local" code="908.3047& quot; displayName="Glucose - AMS" /> <statusCode code=& quot;completed" /> <effectiveTime value="655891767847& quot; /> <value unit="mg/dL" xsi:type="PQ" value="356" /> <interpretationCode codeSystem="local& quot; code="*" /> <referenceRange> < observationRange> <text>70-99</text> </ observationRange> </referenceRange> </observation&gt ; </component> <component> <observation moodCode ="EVN" classCode="OBS"> <templateId root=& quot;2.16.840.1.902235.10.20.22.4.2" /><id nullFlavor="NA" /> <code codeSystem="local" code="908.3054" displayName="Calcium - AMS" /> <statusCode code=" completed" /> <effectiveTime value="874345802890" /> <value unit="mg/dL" xsi:type="PQ" value=& quot;9.7" /> <referenceRange> < observationRange> <text>8.4-10.2</text> & lt;/observationRange> </referenceRange> </ observation> </component> <component> < observation moodCode="EVN" classCode="OBS"> < templateId root="2.16.840.1.946467.10.20.22.4.2" /> < id nullFlavor="NA" /> <code codeSystem="local&quot ; code="908.3072" displayName="Bilirubin,Total - AMS" /> <statusCode code="completed" /> < effectiveTime value="483331993766" /> <value unit=&quot ;mg/dL" xsi:type="PQ" value="0.9" /> < referenceRange> <observationRange> <text>0.2- 1.2</text> </observationRange> </ referenceRange> </observation> </component> < component> <observation moodCode="EVN" classCode=" OBS"> <templateId root="2.16.840.1.214029.10.20.22.4.2&quot ; /> <id nullFlavor="NA" /> <code codeSystem="local" code="908.3078" displayName=" Alkaline Phosphatase - AMS" /> <statusCode code=" completed" /> <effectiveTime value="642851840196" /> <value unit="U/L" xsi:type="PQ" value=& quot;51" /> <referenceRange> <observationRange> <text>40-150</text> </observationRange&gt ; </referenceRange> </observation> </ component> <component> <observation moodCode="EVN& quot; classCode="OBS"> <templateId root=" 2.16.840.1.762600.10.20.22.4.2" /> <id nullFlavor="NA& quot; /> <code codeSystem="local" code="908.3080& quot; displayName="AST - Aspartate Amino Transfer" /> < statusCode code="completed" /> <effectiveTime value=& quot;900155736472" /> <value unit="U/L" xsi:type=& quot;PQ" value="16" /> <referenceRange> < observationRange> <text>5-34</text> </ observationRange> </referenceRange> </observation&gt ; </component> <component> <observation moodCode ="EVN" classCode="OBS"><templateId root=" 2.16.840.1.553658.10.20.22.4.2" /> <id nullFlavor="NA& quot; /> <code codeSystem="local" code="908.3082& quot; displayName="ALT - AMS" /> <statusCode code=&quot ;completed" /> <effectiveTime value="368138775079&quot ; /> <value unit="U/L" xsi:type="PQ" value=& quot;21" /> <referenceRange> < observationRange> <text>0-55</text> </ observationRange> </referenceRange> </observation&gt ; </component> <component> <observation moodCode ="EVN" classCode="OBS"> <templateId root=& quot;2.16.840.1.673873.10.20.22.4.2" /> <id nullFlavor=&quot ;NA" /> <code codeSystem="local" code="908.3084&quot ; displayName="TP - Total Protein - AMS" /> < statusCode code="completed" /> <effectiveTime value=& quot;764559486797" /> <value unit="g/dL" xsi:type= "PQ" value="7.3" /> <referenceRange> <observationRange> <text>6.0-7.6</text> </observationRange> </referenceRange> </ observation> </component> <component> < observation moodCode="EVN" classCode="OBS"> < templateId root="2.16.840.1.029171.10.20.22.4.2" /> < id nullFlavor="NA" /> <code codeSystem="local&quot ; code="908.3086" displayName="Albumin Level - AMS" /> <statusCode code="completed" /> < effectiveTime value="930024407078" /> <value unit=&quot ;g/dL" xsi:type="PQ" value="3.8" /> < referenceRange> <observationRange> <text>3.4-4.8&lt ;/text> </observationRange> </referenceRange&gt ; </observation> </component> <component> <observation moodCode="EVN" classCode="OBS"> <templateId root="2.16.840.1.468176.10.20.22.4.2" /> <id nullFlavor="NA" /> <codecodeSystem=" local" code="908.3088" displayName="Globulin - AMS" /& gt; <statusCode code="completed" /> < effectiveTime value="360088289401" /> <value unit=&quot ;g/dL" xsi:type="PQ" value="3.5" /> < referenceRange> <observationRange> <text> 1.8-4.0</text> </observationRange> </ referenceRange></observation> </component> </organizer > </entry> <entry><organizer moodCode="EVN" classCode="BATTERY"> <templateId root=" 2.16.840.1.412213.10.20.22.4.1" /> <id nullFlavor="NA&quot ; /> <code codeSystem="local" code="LCBCMD-A" displayName="L902.4006" /> <statusCode code="completed& quot; /> <component> <observation moodCode="EVN& quot; classCode="OBS"> <templateId root=" 2.16.840.1.868348.10.20.22.4.2" /> <id nullFlavor="NA& quot; /> <code codeSystem="local" code="902.4012& quot; displayName="White Blood Count" /> <statusCode code=& quot;completed" /> <effectiveTime value="614890732016& quot; /> <value unit="K/uL" xsi:type="PQ" value="9.3"/> <referenceRange> < observationRange> <text>4.8-10.8</text> & lt;/observationRange> </referenceRange> </ observation> </component> <component> < observation moodCode="EVN" classCode="OBS"> < templateId root="2.16.840.1.406387.10.20.22.4.2" /> < id nullFlavor="NA" /> <code codeSystem="local&quot ; code="902.4014" displayName="RBC" /> < statusCode code="completed" /> <effectiveTime value=& quot;768225403935" /><value unit="10*6/uL" xsi:type=" PQ" value="4.30" /> <referenceRange> <observationRange> <text>4.00-5.20</text> </observationRange> </referenceRange> </ observation> </component> <component> < observation moodCode="EVN" classCode="OBS"> < templateId root="2.16.840.1.560179.10.20.22.4.2" /> <id nullFlavor="NA" /> <code codeSystem="local" code="902.4015" displayName="Hemoglobin" /> < statusCode code="completed" /> <effectiveTime value=& quot;031672138792" /> <value unit="g/dL" xsi:type= "PQ" value="12.5" /> <referenceRange> <observationRange> <text>12.0-16.0</text&gt ; </observationRange> </referenceRange> & lt;/observation> </component> <component> < observation moodCode="EVN" classCode="OBS"> < templateId root="2.16.840.1.155536.10.20.22.4.2" /> < id nullFlavor="NA" /> <code codeSystem="local&quot ; code="902.4016" displayName="Hematocrit" /> & lt;statusCode code="completed" /> <effectiveTime value= "352107942956" /> <value unit="%" xsi :type="PQ" value="40.1" /> <referenceRange&gt ; <observationRange> <text>37.0-47.0</text&gt ; </observationRange> </referenceRange> & lt;/observation> </component> <component> < observation moodCode="EVN" classCode="OBS"> < templateId root="2.16.840.1.480814.10.20.22.4.2" /> < id nullFlavor="NA" /> <code codeSystem="local&quot ; code="902.4017" displayName="MCV" /> < statusCode code="completed" /> <effectiveTime value=& quot;064823172044" /> <value unit="fL" xsi:type=& quot;PQ" value="93.3" /> <referenceRange> <observationRange> <text>82.0-99.0</text> </observationRange> </referenceRange> </ observation> </component> <component> < observation moodCode="EVN" classCode="OBS"> < templateId root="2.16.840.1.880705.10.20.22.4.2" /> < id nullFlavor="NA" /> <code codeSystem="local&quot ; code="902.4018" displayName="MCH" /> < statusCode code="completed" /> <effectiveTime value=& quot;369288984305" /> <value unit="pg" xsi:type=& quot;PQ" value="29.1" /> <referenceRange> <observationRange> <text>27.0-32.0</text> </observationRange> </referenceRange> & lt;/observation> </component> <component> < observationmoodCode="EVN" classCode="OBS"> < templateId root="2.16.840.1.302301.10.20.22.4.2" /> < id nullFlavor="NA" /> <code codeSystem="local&quot ; code="902.4019" displayName="MCHC" /> < statusCode code="completed" /> <effectiveTime value=& quot;933042423076"/> <value unit="g/dL" xsi:type=& quot;PQ" value="31.2" /> <interpretationCode codeSystem="local" code="*" /> < referenceRange> <observationRange> <text> 32.0-36.0</text> </observationRange> </ referenceRange> </observation> </component> < component> <observation moodCode="EVN" classCode=" OBS"> <templateId root="2.16.840.1.576671.10.20.22.4.2& quot; /> <id nullFlavor="NA" /> <code codeSystem="local" code="902.4020" displayName="RDW& quot; /> <statusCode code="completed" /> & lt;effectiveTime value="959010995941" /> <value unit=& quot;%" xsi:type="PQ" value="17.1" /> <interpretationCodecodeSystem="local" code="*" /> <referenceRange> <observationRange> <text>11.5-14.5</text> </observationRange> </referenceRange> </observation> </component&gt ; <component> <observation moodCode="EVN" classCode="OBS"> <templateId root=" 2.16.840.1.775563.10.20.22.4.2" /> <id nullFlavor="NA& quot; /> <code codeSystem="local" code="902.4022& quot; displayName="MPV" /> <statusCode code=" completed" /> <effectiveTime value="288841472156" /> <value unit="fL" xsi:type="PQ" value=&quot ;10.2" /> <referenceRange> < observationRange> <text>8.8-14.8</text> < /observationRange> </referenceRange> </observation& gt; </component> <component> <observation moodCode="EVN" classCode="OBS"> <templateId root="2.16.840.1.988919.10.20.22.4.2" /> <id nullFlavor ="NA" /> <code codeSystem="local" code=" 902.4023" displayName="Platelet Count" /> < statusCode code="completed" /> <effectiveTime value=& quot;943758205827" /> <value unit="K/uL" xsi:type= "PQ" value="260" /> <referenceRange> <observationRange> <text>150-400</text> </observationRange> </referenceRange> < /observation> </component> <component> < observation moodCode="EVN" classCode="OBS"> < templateId root="2.16.840.1.563939.10.20.22.4.2" /> < id nullFlavor="NA" /> <code codeSystem="local&quot ; code="902.4025" displayName="Neutrophils %" /> <statusCode code="completed" /> < effectiveTime value="642920210718" /> <value unit=&quot ;%" xsi:type="PQ" value="82" /> &lt ;interpretationCode codeSystem="local" code="*" /> <referenceRange> <observationRange> < text>51-75</text> </observationRange> </ referenceRange> </observation> </component> < component> <observation moodCode="EVN" classCode=" OBS"> <templateId root="2.16.840.1.332412.10.20.22.4.2& quot; /> <id nullFlavor="NA" /> <code codeSystem="local" code="902.4026" displayName=" Lymphocytes %" /> <statusCode code="completed& quot; /> <effectiveTime value="835241463193" /> <value unit="%" xsi:type="PQ" value="4 " /> <interpretationCode codeSystem="local" code=&quot ;*" /> <referenceRange> <observationRange& gt; <text>20-46</text> </observationRange> </referenceRange> </observation> </component& gt; <component> <observation moodCode="EVN" classCode="OBS"> <templateId root=" 2.16.840.1.549859.10.20.22.4.2" /><id nullFlavor="NA" /&gt ; <code codeSystem="local" code="902.4027" displayName="Monocytes %" /> <statusCode code=& quot;completed" /> <effectiveTime value="634108168064& quot; /> <value unit="%" xsi:type="PQ&quot ; value="10" /> <referenceRange> < observationRange> <text>4-11</text> </ observationRange> </referenceRange> </observation&gt ; </component> <component> <observation moodCode ="EVN" classCode="OBS"> <templateId root=& quot;2.16.840.1.186109.10.20.22.4.2" /> <idnullFlavor=" NA" /> <code codeSystem="local" code=" 902.4028" displayName="Basophils %" /> < statusCode code="completed" /> <effectiveTime value=& quot;523675557168" /> <value unit="%" xsi: type="PQ" value="0" /> <referenceRange> <observationRange> <text>0-2</text> </observationRange> </referenceRange> </ observation> </component> <component> < observation moodCode="EVN" classCode="OBS"> < templateId root="2.16.840.1.110780.10.20.22.4.2" /> < id nullFlavor="NA" /> <code codeSystem="local&quot ; code="902.4029" displayName="Eosinophils %" /> <statusCode code="completed" /> < effectiveTime value="596056441430" /> <value unit=&quot ;%" xsi:type="PQ" value="3" /> < referenceRange> <observationRange> <text>0-4</ text> </observationRange> </referenceRange> </observation> </component> <component> <observation moodCode="EVN" classCode="OBS">< templateId root="2.16.840.1.247126.10.20.22.4.2" /> < id nullFlavor="NA" /> <code codeSystem="local&quot ; code="902.4030" displayName="Absolute Neutrophils" /> <statusCode code="completed" /> <effectiveTime value="511203227267" /> <value unit="10*3/uL&quot ; xsi:type="PQ" value="7.72" /> < interpretationCode codeSystem="local" code="*" /> <referenceRange> <observationRange> < text>1.90-7.00</text> </observationRange></ referenceRange> </observation> </component> < component> <observation moodCode="EVN" classCode="OBS& quot;> <templateId root="2.16.840.1.394564.10.20.22.4.2&quot ; /> <id nullFlavor="NA" /> <code codeSystem="local" code="902.4031" displayName=" Absolute Lymphocytes" /> <statusCode code="completed& quot; /> <effectiveTime value="227118346031" /> <value unit="10*3/uL" xsi:type="PQ" value=" 0.37" /> <interpretationCode codeSystem="local" code="*" /> <referenceRange> < observationRange> <text>0.80-3.30</text> </ observationRange> </referenceRange> </observation&gt ; </component> <component> <observation moodCode ="EVN" classCode="OBS"> <templateId root=& quot;2.16.840.1.107759.10.20.22.4.2" /> <id nullFlavor=&quot ;NA" /> <code codeSystem="local" code=" 902.4032" displayName="Absolute Monocytes" /> < statusCode code="completed" /> <effectiveTime value=& quot;811958970141" /> <value unit="10*3/uL" xsi: type="PQ" value="0.93" /> <referenceRange&gt ; <observationRange> <text>0.30-1.00</text> </observationRange> </referenceRange> </ observation> </component> <component> < observation moodCode="EVN" classCode="OBS"> < templateId root="2.16.840.1.070448.10.20.22.4.2" /> < id nullFlavor="NA" /> <code codeSystem="local&quot ; code="902.4033" displayName="Absolute Eosinophils" /> <statusCode code="completed" /> < effectiveTime value="671082991013" /> <value unit=&quot ;10*3/uL" xsi:type="PQ" value="0.28" /> &lt ;referenceRange> <observationRange><text>0.00-0.50< /text> </observationRange> </referenceRange> </observation> </component> <component> <observation moodCode="EVN" classCode="OBS"> <templateId root="2.16.840.1.457299.10.20.22.4.2" /> <id nullFlavor="NA" /> <code codeSystem=" local" code="902.4034" displayName="Absolute Basophils&quot ; /> <statusCode code="completed" /> < effectiveTime value="021745202507" /> <value unit=&quot ;10*3/uL" xsi:type="PQ" value="0.00" /> &lt ;referenceRange> <observationRange> <text&gt ;0.00-0.20</text> </observationRange> </ referenceRange> </observation> </component> < component> <observation moodCode="EVN" classCode=" OBS"> <templateId root="2.16.840.1.246076.10.20.22.4.2& quot; /> <id nullFlavor="NA" /> <code codeSystem="local" code="902.4036" displayName="Bands & amp;#37;" /> <statusCode code="completed" /> <effectiveTime value="103069918224" /> <value unit ="%" xsi:type="PQ" value="1" /> <referenceRange> <observationRange> < text>0-8</text> </observationRange> </ referenceRange> </observation> </component> < component> <observation moodCode="EVN" classCode=" OBS"> <templateId root="2.16.840.1.880798.10.20.22.4.2& quot; /> <id nullFlavor="NA" /> <code codeSystem="local" code="902.4072" displayName=" Differential" /> <statusCode code="completed" /&gt ; <effectiveTime value="648303432858" /> < value unit="" xsi:type="PQ" value="Manual" /> <referenceRange> <observationRange> <text>NRG</text> </observationRange> </ referenceRange> </observation> </component> </ organizer> </entry> <entry> <organizer moodCode="EVN " classCode="BATTERY"> <templateId root=" 2.16.840.1.577965.10.20.22.4.1" /> <id nullFlavor="NA&quot ; /> <code codeSystem="local" code="MCUBLD" displayName="M110.0180" /> <statusCode code="completed " /> <component> <observation moodCode="EVN& quot; classCode="OBS"> <templateId root=" 2.16.840.1.029900.10.20.22.4.2" /> <id nullFlavor="NA& quot; /> <code codeSystem="local" code="110.0200& quot; displayName="ANTI-D" /> <statusCode code=" completed" /> <effectiveTime value="487262016217" /> <value unit="" xsi:type="PQ" value=" " /> <referenceRange> <observationRange> <text>NRG</text> </observationRange> </referenceRange> </observation> </component> <component> <observation moodCode="EVN" classCode="OBS"> <templateId root=" 2.16.840.1.447862.10.20.22.4.2" /> <id nullFlavor="NA& quot; /> <code codeSystem="local" code="100.0120& quot; displayName="Gram Stain w/BC" /> <statusCode code ="completed" /><effectiveTime value="554757207166" /& gt; <value unit="" xsi:type="PQ" value=" & quot; /> <referenceRange> <observationRange> <text>NRG</text> </observationRange> </referenceRange> </observation> </ component> </organizer> </entry> <entry> < organizer moodCode="EVN" classCode="BATTERY"> < templateId root="2.16.840.1.279392.10.20.22.4.1" /> <id nullFlavor="NA" /> <code codeSystem="local" code= "LCBC" displayName="L100.0050" /> <statusCode code="completed" /> <component> <observation moodCode ="EVN" classCode="OBS"> <templateId root=& quot;[id number]" /> <id nullFlavor=&quot ;NA" /> <code codeSystem="local" code="100.0150& quot; displayName="WBC - WHITE BLOOD COUNT" /> < statusCode code="completed" /> <effectiveTime value=& quot;[id number]" /> <value unit="T/MM3" xsi:type ="PQ" value="5.1" /> <referenceRange> <observationRange> <text>4.5-11.0</text> </observationRange> </referenceRange> & lt;/observation> </component> <component> < observation moodCode="EVN" classCode="OBS"> < templateId root="2.16.840.1.743332.10.20.22.4.2" /> < id nullFlavor="NA" /> <code codeSystem="local" code= "100.0250" displayName="RED BLOOD COUNT" /> < statusCode code="completed" /> <effectiveTime value=& quot;681764746168" /> <value unit="M/MM3" xsi:type ="PQ" value="4.54" /> <referenceRange> <observationRange> <text>4.00-5.20</text> </observationRange> </referenceRange> </ observation> </component> <component> < observation moodCode="EVN" classCode="OBS"> < templateId root="2.16.840.1.024095.10.20.22.4.2" /> < id nullFlavor="NA" /> <code codeSystem="local&quot ; code="100.0300" displayName="HGB - HEMOGLOBIN" /> <statusCode code="completed" /> <effectiveTime value="727645579573" /> <value unit="GM/DL" xsi:type="PQ" value="13.4" /> <referenceRange > <observationRange> <text>12-16</text > </observationRange> </referenceRange> </observation> </component> <component> < observation moodCode="EVN" classCode="OBS"> < templateId root="2.16.840.1.732249.10.20.22.4.2" /> < id nullFlavor="NA" /> <code codeSystem="local&quot ; code="100.0400" displayName="HCT - HEMATOCRIT" /> &lt ;statusCode code="completed" /> <effectiveTime value=& quot;255878481641" /> <value unit="%" xsi: type="PQ" value="41.9" /> <referenceRange&gt ; <observationRange> <text>36-46</text&gt ; </observationRange> </referenceRange> & lt;/observation> </component> <component> < observation moodCode="EVN" classCode="OBS"> < templateId root="2.16.840.1.638087.10.20.22.4.2" /> < id nullFlavor="NA" /> <code codeSystem="local&quot ; code="100.0550" displayName="MEAN CORPUSCULAR VOLUME" /&gt ; <statusCode code="completed" /> <effectiveTime value="171023522803" /> <value unit="UM3" xsi :type="PQ" value="92.3"/> <referenceRange&gt ; <observationRange> <text>80-100</text& gt; </observationRange> </referenceRange> </observation> </component> <component> &lt ;observation moodCode="EVN" classCode="OBS"> &lt ;templateId root="2.16.840.1.274241.10.20.22.4.2" /> < id nullFlavor="NA" /> <code codeSystem="local&quot ; code="100.0600" displayName="MEAN CORPUSCULAR HGB" /> <statusCode code="completed" /> < effectiveTime value="727723513946"/> <value unit=" UUG" xsi:type="PQ" value="29.5" /> < referenceRange> <observationRange> <text> 26-34</text> </observationRange> </ referenceRange> </observation> </component> < component> <observation moodCode="EVN"classCode="OBS "> <templateId root="2.16.840.1.908971.10.20.22.4.2& quot; /> <id nullFlavor="NA" /> <code codeSystem="local" code="100.0650" displayName="MEAN CORPUSCULAR HGB CONC([facility]" /> <statusCode code=" completed" /> <effectiveTime value="868634868786" /> <value unit="GM/DL" xsi:type="PQ" value=& quot;32.0" /> <referenceRange> < observationRange> <text>31-37</text> < /observationRange> </referenceRange> </observation& gt; </component> <component> <observation moodCode="EVN" classCode="OBS"> <templateId root="2.16.840.1.504990.10.20.22.4.2" /> <id nullFlavor ="NA" /> <code codeSystem="local" code=" 100.0750" displayName="RDW STANDARD DEVIATION" /> &lt ;statusCode code="completed" /> <effectiveTime value=& quot;208644011113" /> <value unit="FL" xsi:type=& quot;PQ" value="56.8" /> <interpretationCode codeSystem=& quot;local" code="*" /> <referenceRange> <observationRange> <text>36.9-50.2</text> </observationRange> </referenceRange> </ observation> </component> <component> < observation moodCode="EVN" classCode="OBS"> < templateId root="2.16.840.1.982847.10.20.22.4.2" /><id nullFlavor="NA" /> <code codeSystem="local" code="100.0850" displayName="PLT - PLATELET COUNT" /> <statusCode code="completed" /> < effectiveTime value="869607821708" /> <valueunit=" T/MM3" xsi:type="PQ" value="240" /> < referenceRange> <observationRange> <text> 130-400</text> </observationRange> </ referenceRange> </observation> </component> < component> <observation moodCode="EVN" classCode=" OBS"> <templateId root="2.16.840.1.857586.10.20.22.4.2& quot; /> <id nullFlavor="NA" /> <code codeSystem="local" code="100.0950" displayName="MEAN PLATELET VOLUME" /> <statusCode code="completed" / > <effectiveTime value="326221528049" /> & lt;value unit="UM3" xsi:type="PQ" value="9.6" /&gt ; <referenceRange> <observationRange> <text>9.4-12.4</text> </observationRange> </referenceRange> </observation> </component> & lt;/organizer> </entry> <entry> <organizer moodCode=&quot ;EVN" classCode="BATTERY"> <templateId root=" 2.16.840.1.525764.10.20.22.4.1" /> <id nullFlavor="NA&quot ; /> <code codeSystem="local" code="LDIFFM" displayName="L100.0105" /> <statusCode code="completed " /> <component> <observation moodCode="EVN& quot; classCode="OBS"> <templateId root=" 2.16.840.1.157377.10.20.22.4.2" /> <id nullFlavor="NA& quot; /> <code codeSystem="local" code="100.1650& quot; displayName="NEUTROPHILS % (MANUAL)" /> < statusCode code="completed" /> <effectiveTime value=& quot;357820165618" /> <valueunit="%" xsi: type="PQ" value="65.0" /> <referenceRange&gt ; <observationRange> <text>33-66</text&gt ; </observationRange> </referenceRange> </ observation> </component> <component> < observation moodCode="EVN" classCode="OBS"> < templateId root="2.16.840.1.790914.10.20.22.4.2" /> < id nullFlavor="NA" /> <code codeSystem="local&quot ; code="100.1750" displayName="BAND NEUTROPHILS %" / > <statusCode code="completed" /> < effectiveTime value="287067222415" /> <value unit=&quot ;%" xsi:type="PQ" value="25.0" /> & lt;interpretationCode codeSystem="local" code="" /> <referenceRange> <observationRange> <text>0-6</text> </observationRange> </ referenceRange> </observation> </component> < component> <observation moodCode="EVN" classCode=" OBS"> <templateId root="2.16.840.1.284721.10.20.22.4.2& quot; /> <id nullFlavor="NA" /> <code codeSystem="local" code="100.1850" displayName=" LYMPHOCYTES % (MANUAL)" /> <statusCode code=" completed" /> <effectiveTime value="358707235629" /> <value unit="%" xsi:type="PQ" value="4.0" /> <interpretationCode codeSystem=" local" code="*" /> <referenceRange> < observationRange> <text>23-45</text> < /observationRange> </referenceRange> </observation& gt; </component> <component> <observation moodCode="EVN" classCode="OBS"> <templateId root="2.16.840.1.373126.10.20.22.4.2" /> <id nullFlavor ="NA" /> <code codeSystem="local" code=" 100.1950" displayName="MONOCYTES % (MANUAL)" /> <statusCode code="completed" /> <effectiveTime value="792725596376" /> <value unit="%& quot; xsi:type="PQ" value="2.0" /> < referenceRange> <observationRange> <text>0-9.0& lt;/text> </observationRange> </referenceRange& gt; </observation> </component> <component> <observation moodCode="EVN" classCode="OBS"> <templateId root="2.16.840.1.444939.10.20.22.4.2" /> & lt;id nullFlavor="NA" /> <code codeSystem="local& quot; code="100.0" displayName="EOSINOPHILS % (MANUAL) " /> <statusCode code="completed" /> & lt;effectiveTime value="047924742622" /> <value unit=& quot;%" xsi:type="PQ" value="2.0" /> <referenceRange> <observationRange> < text>0-4</text> </observationRange> </ referenceRange> </observation> </component> < component> <observation moodCode="EVN" classCode=" OBS"> <templateId root="2.16.840.1.894736.10.20.22.4.2& quot; /> <id nullFlavor="NA" /> <code codeSystem="local" code="100.0" displayName=" METAMYELOCYTES %" /> <statusCode code=" completed"/> <effectiveTime value="070848998427" / > <value unit="%" xsi:type="PQ" value ="2.0" /> <interpretationCode codeSystem="local& quot; code="*" /> <referenceRange> < observationRange> <text>0-0</text> </ observationRange> </referenceRange> </observation> </component> <component> <observation moodCode=& quot;EVN" classCode="OBS"> <templateId root=" 2.16.840.1.434516.10.20.22.4.2" /> <id nullFlavor="NA& quot;/> <code codeSystem="local" code="100.2400& quot; displayName="PROLYMPHOCYTES %" /> < statusCode code="completed" /> <effectiveTime value=& quot;671433005491" /> <value unit="T/MM3" xsi:type ="PQ" value="3.3" /> <referenceRange> <observationRange> <text>1.8-7.7</text> </observationRange> </referenceRange> </ observation> </component> <component> < observation moodCode="EVN" classCode="OBS"> < templateId root="2.16.840.1.616220.10.20.22.4.2" /> < id nullFlavor="NA" /> <code codeSystem="local&quot ; code="100.2450" displayName="PLASMA CELLS %" /&gt ; <statusCode code="completed" /> < effectiveTime value="583037912726" /> <value unit=&quot ;T/MM3" xsi:type="PQ" value="1.3" /> < referenceRange> <observationRange> <text> NRG</text> </observationRange> </ referenceRange> </observation> </component> < component> <observation moodCode="EVN" classCode="OBS" > <templateId root="2.16.840.1.264796.10.20.22.4.2" /& gt; <id nullFlavor="NA" /> <code codeSystem=& quot;local" code="100.2650" displayName="NEUTROPHILS #( MANUAL)" /> <statusCode code="completed" /> <effectiveTime value="772592631821" /> < value unit="T/MM3" xsi:type="PQ" value="0.1" /&gt ; <referenceRange> <observationRange> <text>0-0.8</text> </observationRange> </referenceRange> </observation> </component> <component> <observation moodCode="EVN" classCode= "OBS"> <templateId root=" 2.16.840.1.301956.10.20.22.4.2" /> <id nullFlavor="NA& quot; /> <code codeSystem="local" code="100.2750& quot; displayName="MONOCYTES # (MANUAL)" /> < statusCode code="completed" /> <effectiveTime value=& quot;801796835721" /> <value unit="T/MM3" xsi:type ="PQ" value="0.1" /> <referenceRange> <observationRange> <text>0-0.5</text> </observationRange> </referenceRange> </ observation> </component> <component> < observation moodCode="EVN" classCode="OBS"> < templateId root="2.16.840.1.039515.10.20.22.4.2" /> < id nullFlavor="NA" /> <codecodeSystem="local&quot ; code="100.2900" displayName="METAMYELOCYTES #" /> <statusCode code="completed" /> <effectiveTime value="118057483385" /> <value unit="T/MM3" xsi:type="PQ" value="0.1" /> <referenceRange& gt; <observationRange> <text>NRG</text&gt ; </observationRange> </referenceRange> & lt;/observation> </component> <component> < observation moodCode="EVN" classCode="OBS"> < templateId root="2.16.840.1.164395.10.20.22.4.2" /> < id nullFlavor="NA" /> <code codeSystem="local&quot ; code="100.4150" displayName="NUCLEATED RED BLOOD CELLS" /& gt; <statusCode code="completed" /> < effectiveTime value="012810491777" /> <value unit=&quot ;" xsi:type="PQ" value="2" /> < referenceRange> <observationRange> <text> NRG</text> </observationRange> </ referenceRange> </observation> </component> < component> <observation moodCode="EVN" classCode=" OBS"> <templateId root="2.16.840.1.005482.10..22.4.2& quot; /> <id nullFlavor="NA" /> <code codeSystem="local" code="100.4750" displayName=" MACROCYTOSIS" /> <statusCode code="completed" /&gt ; <effectiveTime value="079213819052" /><value unit= "" xsi:type="PQ" value="1+" /> < referenceRange> <observationRange> <text> NRG</text> </observationRange> </ referenceRange> </observation> </component> < component> <observation moodCode="EVN" classCode=" OBS"> <templateId root="2.16.840.1.576048.10..22.4.2& quot; /> <id nullFlavor="NA" /> <code codeSystem="local" code="100.4850" displayName=" POLYCHROMASIA" /> <statusCode code="completed" /& gt; <effectiveTime value="565037900851" /> &lt ;value unit="" xsi:type="PQ" value="2+" /> <referenceRange> <observationRange> & lt;text>NRG</text> </observationRange> </ referenceRange> </observation> </component> < component> <observation moodCode="EVN" classCode=" OBS"> <templateId root="2.16.840.1.178860.10.20.22.4.2& quot; /> <id nullFlavor="NA" /> <code codeSystem="local" code="100.2550" displayName=" Lymphocytes # (Manual)" /> <statusCode code="completed& quot; /><effectiveTime value="161874199136" /> < value unit="T/MM3" xsi:type="PQ" value="0.2" /&gt ; <interpretationCode codeSystem="local" code="*&quot ; /> <referenceRange> <observationRange> <text>1-4.8</text> </observationRange> </referenceRange> </observation> </component& gt; <component> <observation moodCode="EVN" classCode="OBS"> <templateId root=" 2.16.840.1.269065.10..22.4.2" /> <id nullFlavor="NA& quot; /> <code codeSystem="local" code="100.4565& quot; displayName="LRBCMOR" /> <statusCode code=" completed" /> <effectiveTime value="161639346907" /> <value unit="" xsi:type="PQ" value=" Abnormal" /> <referenceRange> < observationRange> <text>NRG</text> </ observationRange> </referenceRange> </observation&gt ; </component> </organizer> </entry> <entry> <organizer moodCode="EVN" classCode="BATTERY"> <templateId root="2.16.840.1.323115.10..22.4.1" /> < id nullFlavor="NA" /> <codecodeSystem="local" code="LCMP" displayName="L200.0020" /> < statusCode code="completed" /> <component> < observation moodCode="EVN" classCode="OBS"> < templateId root="2.16.840.1.686467.10.20.22.4.2" /> < id nullFlavor="NA" /> <code codeSystem="local&quot ; code="300.0400" displayName="FUNGAL CULTURE." /> <statusCode code="completed" /> <effectiveTime value="417357712112" /> <value unit="MG/DL" xsi:type="PQ" value="1.4" /> < interpretationCode codeSystem="local" code="*" /> <referenceRange> <observationRange> < text>0.7-1.2</text> </observationRange> </ referenceRange> </observation> </component> < component> <observation moodCode="EVN" classCode=" OBS"> <templateId root="2.16.840.1.505192.10.20.22.4.2& quot; /> <id nullFlavor="NA" /> <code codeSystem="local" code="300.0450" displayName="FUNGAL CULTURE, BLOOD." /> <statusCode code="completed" / > <effectiveTime value="786445450042" /> & lt;value unit="RATIO" xsi:type="PQ" value="28" /& gt; <interpretationCode codeSystem="local" code="*& quot; /> <referenceRange> <observationRange> <text>6-26</text> </observationRange> </referenceRange> </observation> </component&gt ; <component> <observation moodCode="EVN" classCode="OBS"> <templateId root=" 2.16.840.1.997481.10.20.22.4.2" /> <id nullFlavor="NA& quot; /> <code codeSystem="local" code="300.0100& quot; displayName="NA - Sodium" /> <statusCode code=& quot;completed" /> <effectiveTime value="392495668694& quot; /> <value unit="MEQ/L" xsi:type="PQ" value="138" /> <referenceRange> < observationRange> <text>134-144</text> & lt;/observationRange> </referenceRange> </observation> </component> <component> <observation moodCode= "EVN" classCode="OBS"> <templateId root=&quot ;2.16.840.1.442470.10..22.4.2" /> <id nullFlavor="NA& quot; /> <code codeSystem="local" code="300.0150& quot; displayName="Potassium" /> <statusCode code=&quot ;completed" /> <effectiveTime value="128850767866&quot ; /> <value unit="MEQ/L" xsi:type="PQ" value= "4.5" /> <referenceRange> < observationRange> <text>3.6-5</text> </ observationRange> </referenceRange> </observation&gt ; </component> <component> <observation moodCode ="EVN" classCode="OBS"> <templateId root=& quot;2.16.840.1.837101.10..22.4.2" /> <id nullFlavor=&quot ;NA" /> <code codeSystem="local" code=" 300.0200" displayName="Chloride" /> <statusCode code=& quot;completed" /> <effectiveTime value="105507608129& quot; /> <value unit="MEQ/L" xsi:type="PQ" value="94" /> <interpretationCode codeSystem=" local" code="*" /> <referenceRange> < observationRange> <text>98-107</text> &lt ;/observationRange> </referenceRange> </observation& gt; </component> <component> <observation moodCode="EVN" classCode="OBS"> <templateId root="2.16.840.1.354213.10.20.22.4.2" /> <id nullFlavor ="NA" /> <code codeSystem="local" code=" 300.0250" displayName="CO2 - Carbon Dioxide" /> < statusCode code="completed" /> <effectiveTime value=& quot;762835760141" /> <value unit="MEQ/L" xsi:type=" PQ" value="27" /> <referenceRange> & lt;observationRange> <text>22-30</text> </ observationRange> </referenceRange> </observation&gt ; </component> <component> <observation moodCode ="EVN" classCode="OBS"> <templateId root=& quot;2.16.840.1.787375.10.20.22.4.2" /> <id nullFlavor="NA& quot; /> <code codeSystem="local" code="300.0300& quot; displayName="Anion Gap" /> <statusCode code=&quot ;completed" /> <effectiveTime value="695202538498&quot ; /> <value unit="MEQ/L" xsi:type="PQ" value= "17" /> <interpretationCode codeSystem="local&quot ; code="*" /> <referenceRange> < observationRange> <text>5-15</text> </ observationRange> </referenceRange> </observation> </component> <component> <observation moodCode=& quot;EVN" classCode="OBS"> <templateId root=" 2.16.840.1.323539.10.20.22.4.2" /> <id nullFlavor="NA& quot;/> <code codeSystem="local" code="300.0350& quot; displayName="BUN- Blood Urea Nitrogen" /> < statusCode code="completed" /> <effectiveTime value=& quot;261350008554" /> <value unit="MG/DL" xsi:type ="PQ" value="39.0" /> <interpretationCode codeSystem="local" code="*" /> < referenceRange> <observationRange> <text>7 -17</text> </observationRange> </ referenceRange> </observation> </component> < component> <observation moodCode="EVN" classCode=" OBS"> <templateId root="2.16.840.1.687149.10.20.22.4.2& quot; /> <id nullFlavor="NA" /> <code codeSystem="local" code="300.0410" displayName=" Glomerular FiltrationRate" /> <statusCode code=" completed" /> <effectiveTimevalue="547969649941" / > <value unit="" xsi:type="PQ" value="37 " /> <referenceRange> <observationRange&gt ; <text>NRG</text> </observationRange> </referenceRange> </observation> </component> <component> <observation moodCode="EVN" classCode=& quot;OBS"> <templateId root=" 2.16.840.1.506325.10.20.22.4.2" /> <id nullFlavor="NA& quot; /> <code codeSystem="local" code="300.0500& quot; displayName="Glucose" /> <statusCode code=" completed" /> <effectiveTime value="209872201392" /> <value unit="MG/DL" xsi:type="PQ" value=& quot;185" /> <interpretationCode codeSystem="local&quot ; code="*" /> <referenceRange> < observationRange> <text>65-110</text> </ observationRange> </referenceRange> </observation&gt ;</component> <component> <observation moodCode=&quot ;EVN" classCode="OBS"> <templateId root=" 2.16.840.1.108111.10.20.22.4.2" /> <id nullFlavor="NA" /> <code codeSystem="local" code="300.2000" displayName="Osmolality,Calculated" /> <statusCode code ="completed" /> <effectiveTime value="619959776923 " /> <value unit="MOSM/KG" xsi:type="PQ&quot ; value="280" /> <referenceRange> < observationRange> <text>261-280</text> </ observationRange> </referenceRange> </observation&gt ; </component> <component> <observation moodCode ="EVN" classCode="OBS"> <templateId root=& quot;2.16.840.1.668938.10.20.22.4.2" /> <id nullFlavor="NA&quot ; /> <code codeSystem="local" code="300.2200&quot ; displayName="Calcium" /> <statusCode code=" completed" /> <effectiveTime value="657208346951" /> <value unit="MG/DL" xsi:type="PQ" value=& quot;9.5" /> <referenceRange> <observationRange& gt; <text>8.4-10.2</text> </ observationRange> </referenceRange> </observation&gt ; </component> <component> <observation moodCode=& quot;EVN" classCode="OBS"> <templateId root=" 2.16.840.1.956893.10.20.22.4.2" /> <id nullFlavor="NA& quot; /> <code codeSystem="local" code="300.2700& quot; displayName="Bilirubin,Total" /> <statusCode code ="completed" /> <effectiveTime value="954527216755& quot; /> <value unit="MG/DL" xsi:type="PQ" value="0.70" /> <referenceRange> < observationRange> <text>0.20-1.30</text> </observationRange> </referenceRange> </ observation> </component> <component> < observation moodCode="EVN" classCode="OBS"> < templateId root="2.16.840.1.302313.10.20.22.4.2" /> < id nullFlavor="NA" /> <code codeSystem="local&quot ; code="300.2975" displayName="Alkaline Phosphatase" /> <statusCode code="completed" /> <effectiveTime value="212355931576" /> <value unit="U/L" xsi :type="PQ" value="73" /> <referenceRange> <observationRange> <text>38-126</text&gt ; </observationRange> </referenceRange> </ observation> </component> <component> < observation moodCode="EVN" classCode="OBS"> < templateId root="2.16.840.1.665091.10.20.22.4.2" /> < id nullFlavor="NA" /> <code codeSystem="local&quot ; code="300.3050" displayName="AST - Aspartate Amino Transfer& quot; /> <statusCode code="completed" /> < effectiveTime value="041608431267" /> <value unit=&quot ;U/L" xsi:type="PQ" value="32" /> < referenceRange> <observationRange> <text> 14-36</text> </observationRange> </referenceRange& gt; </observation> </component> <component> <observation moodCode="EVN" classCode="OBS"> <templateId root="2.16.840.1.425750.10.20.22.4.2" /> <id nullFlavor="NA" /> <code codeSystem=&quot ;local" code="300.3100" displayName="ALT" /> <statusCode code="completed" /> <effectiveTime value="112036940787" /> <value unit="U/L" xsi :type="PQ" value="46" /> <referenceRange> <observationRange><text>9-52</text> &lt ;/observationRange> </referenceRange> </observation&gt ; </component> <component> <observation moodCode ="EVN" classCode="OBS"> <templateId root=& quot;2.16.840.1.094332.10.20.22.4.2" /> <id nullFlavor=&quot ;NA" /> <code codeSystem="local" code=" 300.3110" displayName="TP - Total Protein" /> < statusCode code="completed" /> <effectiveTime value=& quot;558446092625" /> <value unit="G/DL" xsi:type= "PQ" value="7.0" /> <referenceRange> <observationRange> <text>6.3-8.2</text> </observationRange> </referenceRange> < /observation> </component> <component> < observation moodCode="EVN" classCode="OBS"> < templateId root="2.16.840.1.905329.10.20.22.4.2" /> < id nullFlavor="NA" /> <code codeSystem="local&quot ; code="300.3120" displayName="Albumin Level" /> <statusCode code="completed" /> <effectiveTime value="555520542754" /> <value unit="G/DL" xsi:type="PQ" value="3.9" /> <referenceRange> <observationRange> <text>3.5-5.0</text> </observationRange> </referenceRange> & lt;/observation> </component> <component> < observation moodCode="EVN" classCode="OBS"> < templateId root="2.16.840.1.947781.10.20.22.4.2" /> < id nullFlavor="NA" /> <code codeSystem="local&quot ; code="300.3130" displayName="Globulin" /> < statusCode code="completed" /> <effectiveTime value=& quot;862098481518" /> <value unit="G/DL" xsi:type= "PQ" value="3.1" /> <referenceRange> <observationRange> <text>2.4-3.6</text> </observationRange> </referenceRange> < /observation> </component> <component> < observation moodCode="EVN" classCode="OBS"> < templateId root="2.16.840.1.796114.10.20.22.4.2" /> < id nullFlavor="NA" /> <code codeSystem="local&quot ; code="300.3140" displayName="Albumin/Globulin Ratio" /&gt ; <statusCode code="completed" /> < effectiveTime value="743321351775" /> <value unit=&quot ;RATIO" xsi:type="PQ" value="1.3" /> < referenceRange> <observationRange> <text> 1.1-2.2</text> </observationRange> </ referenceRange> </observation> </component> < component> <observation moodCode="EVN" classCode=" OBS"> <templateId root="2.16.840.1.919647.10.20.22.4.2& quot; /> <id nullFlavor="NA" /> <code codeSystem="local" code="300.0095" displayName=" LICTERUS" /> <statusCode code="completed" /> <effectiveTime value="655988910640" /> <value unit="" xsi:type="PQ" value="< 2" /> <referenceRange> <observationRange> & lt;text>0-7</text> </observationRange> </ referenceRange> </observation> </component> < component> <observation moodCode="EVN" classCode=" OBS"> <templateId root="2.16.840.1.192134.10.20.22.4.2& quot; /> <id nullFlavor="NA" /> <code codeSystem="local" code="300.0096" displayName=" LHEMOLYSIS" /> <statusCode code="completed" /> <effectiveTime value="003533206036" /> < value unit="" xsi:type="PQ" value="24" /> <referenceRange> <observationRange> < text>0-25</text> </observationRange> </ referenceRange> </observation> </component> < component> <observation moodCode="EVN" classCode=" OBS"> <templateId root="2.16.840.1.444901.10.20.22.4.2& quot; /> <id nullFlavor="NA" /> <code codeSystem="local" code="300.0097" displayName=" LTURBIDITY" /> <statusCode code="completed" /> <effectiveTime value="[id number]" /> < value unit="" xsi:type="PQ" value="< 20" /& gt; <referenceRange> <observationRange> <text>0-20</text> </observationRange> </referenceRange></observation> </component> </ organizer> </entry> <entry><organizer moodCode="EVN& quot; classCode="BATTERY"> <templateId root=" [id number]" /> <id nullFlavor="NA&quot ; /> <code codeSystem="local" code="LLACTATE" displayName="L200.2067" /> <statusCode code="completed& quot; /> <component> <observation moodCode="EVN& quot; classCode="OBS"> <templateId root=" 2.16.840.1.630313.10.20.22.4.2" /> <id nullFlavor="NA& quot; /> <code codeSystem="local" code="300.3230& quot; displayName="Lactate" /> <statusCode code=" completed" /> <effectiveTime value="110815132117" /> <value unit="MMOL/L" xsi:type="PQ" value=& quot;4.0" /> <interpretationCode codeSystem="local" code="*" /> <referenceRange> < observationRange> <text>0.6-2.2</text> </ observationRange> </referenceRange> </observation&gt ; </component> </organizer> </entry> <entry> <organizer moodCode="EVN" classCode="BATTERY"> <templateId root="2.16.840.1.830191.10.20.22.4.1" /> < id nullFlavor="NA" /> <code codeSystem="local" code="LTROPI" displayName="L300.3490" /> < statusCode code="completed" /> <component> < observation moodCode="EVN" classCode="OBS"> < templateId root="2.16.840.1.064624.10.20.22.4.2" /> <id nullFlavor="NA" /> <code codeSystem="local" code="300.3500" displayName="Troponin I" /> < statusCode code="completed" /> <effectiveTime value=& quot;115255431417" /> <value unit="ng/ml" xsi:type ="PQ" value="0.018" /> <referenceRange> <observationRange> <text>0-0.12</text> </observationRange> </referenceRange> & lt;/observation> </component> </organizer> </entry&gt ; <entry> <organizer moodCode="EVN" classCode=" BATTERY"> <templateId root="2.16.840.1.695866.10.20.22.4.1& quot;/> <id nullFlavor="NA" /> <code codeSystem= "local" code="LBNP" displayName="L300.3700" /> <statusCode code="completed"/> <component> <observation moodCode="EVN" classCode="OBS"> <templateId root="2.16.840.1.778513.10.20.22.4.2" /> <id nullFlavor="NA" /> <code codeSystem=" local" code="300.3700" displayName="B-Type Natriuretic Peptide" /> <statusCode code="completed" /> <effectiveTime value="334429093074" /> < value unit="pg/mL" xsi:type="PQ" value="1390" /&gt ; <interpretationCode codeSystem="local" code="*&quot ; /> <referenceRange> <observationRange> & lt;text>0-175</text> </observationRange> < /referenceRange> </observation> </component> </ organizer> </entry> <entry> <organizer moodCode="EVN " classCode="BATTERY"> <templateId root=" 2.16.840.1.114481.10.20.22.4.1" /> <id nullFlavor="NA&quot ; /> <code codeSystem="local" code="LLIPASE" displayName="L300.4950" /> <statusCode code="completed " /> <component> <observation moodCode="EVN& quot; classCode="OBS"> <templateId root=" 2.16.840.1.210754.10.20.22.4.2" /> <id nullFlavor="NA& quot; /> <code codeSystem="local" code="300.4950& quot; displayName="Lipase" /> <statusCode code=" completed" /> <effectiveTime value="009859498578" /> <value unit="U/L" xsi:type="PQ" value=& quot;213" /> <referenceRange> < observationRange> <text>23-300</text> &lt ;/observationRange> </referenceRange> </observation& gt; </component> </organizer> </entry> <entry&gt ; <organizer moodCode="EVN" classCode="BATTERY"> <templateId root="2.16.840.1.552323.10.20.22.4.1" /> < id nullFlavor="NA" /> <code codeSystem="local" code="LBETAHYDROX" displayName="L200.2085" /> < statusCode code="completed" /> <component> < observation moodCode="EVN" classCode="OBS"> < templateId root="2.16.840.1.423169.10.20.22.4.2" /> < id nullFlavor="NA" /> <code codeSystem="local&quot ; code="300.7350" displayName="Beta-Hydroxybutyrate Blood" / > <statusCode code="completed" /> < effectiveTime value="616588725768" /> <value unit=&quot ;MMOL/L" xsi:type="PQ" value="0.50" /> < referenceRange> <observationRange> <text> 0-0.6</text> </observationRange> </referenceRange& gt; </observation> </component> </organizer> & lt;/entry> <entry> <organizer moodCode="EVN" classCode ="BATTERY"> <templateId root=" 2.16.840.1.552463.10.20.22.4.1" /> <id nullFlavor="NA&quot ; /> <code codeSystem="local" code="LUAMIC" displayName="L200.0050" /> <statusCode code="completed " /> <component> <observation moodCode="EVN& quot; classCode="OBS"> <templateId root=" 2.16.840.1.338104.10.20.22.4.2" /> <id nullFlavor="NA& quot; /> <code codeSystem="local" code="200.0150& quot; displayName="POTASSIUM" /> <statusCode code=&quot ;completed" /> <effectiveTime value="133319777056&quot ; /> <value unit="" xsi:type="PQ" value=&quot ;Urine, [place]" /> <referenceRange> < observationRange> <text>NRG</text> </ observationRange> </referenceRange> </observation&gt ; </component> <component> <observation moodCode ="EVN" classCode="OBS"> <templateId root=& quot;2.16.840.1.966363.10.20.22.4.2" /> <id nullFlavor=&quot ;NA" /> <code codeSystem="local" code=" 200.0200" displayName="CHLORIDE" /> <statusCode code="completed" /> <effectiveTime value=" 269508643535" /> <value unit="" xsi:type="PQ& quot; value="YELLOW" /> <referenceRange> <observationRange> <text>YELLOW</text> </observationRange> </referenceRange></observation&gt ; </component> <component> <observation moodCode ="EVN" classCode="OBS"> <templateId root=& quot;2.16.840.1.704411.10.20.22.4.2" /> <id nullFlavor=&quot ;NA" /> <code codeSystem="local" code=" 200.0300" displayName="ANION GAP" /> <statusCode code="completed" /> <effectiveTime value=" 142551577693" /> <value unit="" xsi:type="PQ& quot; value="CLOUDY" /> <referenceRange> < observationRange> <text>NRG</text> </ observationRange> </referenceRange> </observation&gt ; </component> <component> <observation moodCode=& quot;EVN" classCode="OBS"> <templateId root=" 2.16.840.1.670541.10.20.22.4.2" /> <id nullFlavor="NA& quot; /> <code codeSystem="local" code="200.0350& quot; displayName="BLOOD UREA NITROGEN" /> <statusCode code="completed" /> <effectiveTime value=" 494649368901" /> <value unit="" xsi:type="PQ& quot; value="5.5" /> <referenceRange> &lt ;observationRange> <text>5.0-8.0</text></ observationRange> </referenceRange> </observation&gt ; </component> <component> <observation moodCode ="EVN" classCode="OBS"> <templateId root=& quot;2.16.840.1.470713.10.20.22.4.2" /> <id nullFlavor=&quot ;NA" /> <code codeSystem="local" code=" 200.0450" displayName="BUN/CREATININE RATIO" /> < statusCode code="completed" /> <effectiveTime value=& quot;274614212033" /> <value unit="" xsi:type=& quot;PQ" value="1+" /> <referenceRange> & lt;observationRange> <text>NEGATIVE</text> </observationRange> </referenceRange> </ observation> </component> <component> < observation moodCode="EVN" classCode="OBS"> < templateId root="2.16.840.1.908313.10.20.22.4.2" /> < id nullFlavor="NA" /> <code codeSystem="local&quot ; code="200.0500" displayName="GLUCOSE" /> < statusCode code="completed" /> <effectiveTime value=& quot;156662832149" /> <value unit="" xsi:type=& quot;PQ" value="NEGATIVE" /> <referenceRange> <observationRange> <text>NEGATIVE</text& gt; </observationRange> </referenceRange> &lt ;/observation> </component> <component> < observation moodCode="EVN" classCode="OBS"> < templateId root="2.16.840.1.432238.10.20.22.4.2" /> < id nullFlavor="NA"/> <code codeSystem="local&quot ; code="200.0600" displayName="CALCIUM" /> < statusCode code="completed" /> <effectiveTime value=& quot;345038129946" /> <value unit="" xsi:type=& quot;PQ" value="TRACE" /> <referenceRange> <observationRange> <text>NEGATIVE</text> </observationRange> </referenceRange> </ observation> </component> <component> < observation moodCode="EVN" classCode="OBS"> < templateId root="2.16.840.1.978106.10.20.22.4.2" /> < id nullFlavor="NA" /> <code codeSystem="local&quot ; code="200.0750" displayName="BILIRUBIN, CONJUG &amp; UNCONJUG" /> <statusCode code="completed" /> <effectiveTime value="054463601761" /> < value unit="" xsi:type="PQ" value="NEGATIVE" /&gt ; <referenceRange> <observationRange> <text>NEGATIVE</text> </observationRange></ referenceRange> </observation> </component> < component> <observation moodCode="EVN" classCode="OBS& quot;> <templateId root="2.16.840.1.183760.10.20.22.4.2&quot ; /> <id nullFlavor="NA" /> <code codeSystem="local" code="200.1000" displayName="TOTAL PROTEIN" /> <statusCode code="completed" /> <effectiveTime value="211717446207" /> < value unit="/HPF" xsi:type="PQ"value="None Seen" / > <referenceRange> <observationRange> <text>0-3</text> </observationRange> </referenceRange> </observation> </component> <component> <observation moodCode="EVN" classCode ="OBS"> <templateId root=" 2.16.840.1.933781.10.20.22.4.2" /> <id nullFlavor="NA& quot; /> <code codeSystem="local" code="200.1050& quot; displayName="ALBUMIN" /> <statusCode code=" completed" /> <effectiveTime value="967073662929" /> <value unit="/HPF" xsi:type="PQ" value=& quot;50-200" /> <interpretationCode codeSystem="local& quot; code="*" /> <referenceRange> < observationRange> <text>0-5</text> </ observationRange> </referenceRange> </observation&gt ; </component> <component> <observation moodCode ="EVN" classCode="OBS"> <templateId root=& quot;2.16.840.1.224535.10.20.22.4.2" /> <id nullFlavor=&quot ;NA" /> <code codeSystem="local" code=" 200.1750" displayName="CKMB" /> <statusCode code=& quot;completed" /> <effectiveTime value="& quot; /> <value unit="" xsi:type="PQ" value=& quot;2+" /> <interpretationCode codeSystem="local&quot ; code="*" /> <referenceRange> < observationRange> <text>NEGATIVE</text> & lt;/observationRange> </referenceRange> </ observation> </component> <component> < observation moodCode="EVN" classCode="OBS"> < templateId root="2.16.840.1.207831.10.20.22.4.2" /> < id nullFlavor="NA" /> <code codeSystem="local&quot ; code="200.2400" displayName="HOMOCYSTEINE - AT [facility]" /> <statusCode code="completed" /><effectiveTime value ="360186433947" /> <value unit="" xsi:type=& quot;PQ" value="Pseudohyphae present" /> < referenceRange> <observationRange> <text>NEGATIVE& lt;/text> </observationRange> </referenceRange& gt; </observation> </component> <component> <observation moodCode="EVN" classCode="OBS"> <templateId root="2.16.840.1.098047.10.20.22.4.2" /> & lt;id nullFlavor="NA" /> <code codeSystem="local& quot; code="200.2600" displayName="GENTAMICIN,RANDOM" /> <statusCode code="completed" /> <effectiveTime value="923358986509" /> <value unit="" xsi: type="PQ" value="Cult reflexed &setup" /> <referenceRange> <observationRange> < text>NRG</text> </observationRange> </ referenceRange> </observation> </component> < component> <observation moodCode="EVN" classCode=" OBS"> <templateId root="2.16.840.1.450207.10.20.22.4.2& quot; /> <id nullFlavor="NA" /> <code codeSystem="local" code="200.0325" displayName=" Specific [place],Urine" /> <statusCode code="completed& quot; /> <effectiveTime value="001458719003" /> <value unit="" xsi:type="PQ" value="1.020&quot ; /> <referenceRange> <observationRange> <text>1.015-1.025</text> </observationRange> </referenceRange> </observation> </component> <component> <observation moodCode="EVN" classCode=& quot;OBS"> <templateId root=" 2.16.840.1.340806.10.20.22.4.2" /> <id nullFlavor="NA& quot; /> <code codeSystem="local" code="200.0410& quot; displayName="Leukocyte Esterase,Urine" /> < statusCode code="completed"/> <effectiveTime value=& quot;745742540217" /> <value unit="" xsi:type=& quot;PQ" value="3+" /> <referenceRange> <observationRange> <text>NEGATIVE</text> </observationRange> </referenceRange> </ observation> </component> <component> < observation moodCode="EVN" classCode="OBS">< templateId root="2.16.840.1.828610.10.20.22.4.2" /> < id nullFlavor="NA" /> <code codeSystem="local&quot ; code="200.0420" displayName="Nitrate,Urine" /> <statusCode code="completed" /> <effectiveTime value="617648224204" /> <value unit="" xsi: type="PQ" value="NEGATIVE" /> <referenceRange > <observationRange> <text>NEGATIVE</ text> </observationRange> </referenceRange> </observation> </component> <component> < observation moodCode="EVN" classCode="OBS"> < templateId root="2.16.840.1.383680.10.20.22.4.2" /> < id nullFlavor="NA" /> <code codeSystem="local&quot ; code="200.0740" displayName="Urobilinogen,Urine" /> <statusCode code="completed" /> < effectiveTime value="315502757228" /> <value unit=&quot ;EU/DL" xsi:type="PQ" value="0.2" /> < referenceRange> <observationRange> <text> NORMAL</text> </observationRange> </ referenceRange> </observation> </component> < component><observation moodCode="EVN" classCode="OBS"& gt; <templateId root="2.16.840.1.711988.10.20.22.4.2" /&gt ; <id nullFlavor="NA" /> <code codeSystem=" local" code="200.0825" displayName="Occult Blood,Urine - Dipstick" /> <statusCode code="completed" /> <effectiveTime value="076034741951" /> < value unit="" xsi:type="PQ" value="1+" /> <referenceRange> <observationRange> &lt ;text>NEGATIVE</text> </observationRange> &lt ;/referenceRange> </observation> </component> < /organizer> </entry> <entry> <organizer moodCode=" EVN" classCode="BATTERY"> <templateId root=" 2.16.840.1.067328.10.20.22.4.1" /> <id nullFlavor="NA&quot ; /> <code codeSystem="local" code="MCUU" displayName="M120.0100" /> <statusCode code="completed " /> <component> <observation moodCode="EVN& quot; classCode="OBS"> <templateId root=" 2.16.840.1.762126.10.20.22.4.2" /> <id nullFlavor="NA& quot; /> <code codeSystem="local" code="120.0100" displayName="Urine Culture" /> <statusCode code=" completed" /> <effectiveTime value="766191364253" /> <value unit="CFU/ml" xsi:type="PQ" value=& quot; " /> <referenceRange> < observationRange> <text>NRG</text> </ observationRange> </referenceRange> </observation&gt ; </component> </organizer> </entry> <entry> <organizer moodCode="EVN" classCode="BATTERY"> <templateId root="2.16.840.1.242908.10.20.22.4.1" /> < id nullFlavor="NA" /> <code codeSystem="local" code=& quot;LLACTATE" displayName="L200.2067" /> <statusCode code="completed" /> <component> <observation moodCode="EVN" classCode="OBS"> <templateId root="2.16.840.1.701086.10.20.22.4.2" /> <id nullFlavor ="NA" /> <code codeSystem="local" code=" 300.3230" displayName="Lactate" /><statusCode code=" completed" /> <effectiveTime value="195516669897" /> <value unit="MMOL/L" xsi:type="PQ" value=& quot;2.2" /> <referenceRange> < observationRange> <text>0.6-2.2</text> & lt;/observationRange> </referenceRange> </ observation> </component> </organizer> </entry> & lt;entry> <organizer moodCode="EVN" classCode="BATTERY& quot;> <templateId root="2.16.840.1.153408.10.20.22.4.1" /& gt; <id nullFlavor="NA" /> <code codeSystem=" local" code="LBGM" displayName="L900.0530" /> & lt;statusCode code="completed" /> <component> &lt ;observation moodCode="EVN" classCode="OBS"> &lt ;templateId root="2.16.840.1.373239.10.20.22.4.2" /> < id nullFlavor="NA" /> <code codeSystem="local&quot ; code="850.0100" displayName="Glucometer" /> & lt;statusCode code="completed" /> <effectiveTime value= "057559494161" /> <value unit="mg/dL" xsi:type=& quot;PQ" value="249" /> <referenceRange> <observationRange> <text>65-110</text> </observationRange> </referenceRange> </ observation> </component> </organizer> </entry> &lt ;entry> <organizer moodCode="EVN" classCode="BATTERY& quot;> <templateId root="2.16.840.1.270569.10.20.22.4.1" /& gt; <id nullFlavor="NA" /> <code codeSystem=" local" code="LCMPH" displayName="L200.0010" /> <statusCode code="completed" /> <component> & lt;observation moodCode="EVN" classCode="OBS"> & lt;templateId root="2.16.840.1.928447.10.20.22.4.2" /> &lt ;id nullFlavor="NA" /> <code codeSystem="local& quot; code="300.0400" displayName="FUNGAL CULTURE." /> <statusCode code="completed" /> < effectiveTime value="782139388110" /> <value unit=&quot ;MG/DL" xsi:type="PQ" value="1.5" /> < interpretationCode codeSystem="local" code="" /> <referenceRange> <observationRange> < text>0.7-1.2</text> </observationRange> </ referenceRange> </observation> </component> < component> <observation moodCode="EVN" classCode=" OBS"> <templateId root="2.16.840.1.506469.10.20.22.4.2& quot; /> <id nullFlavor="NA" /> <code codeSystem="local" code="300.0450" displayName="FUNGAL CULTURE, BLOOD." /> <statusCode code="completed" / > <effectiveTime value="378806893654" /> & lt;value unit="RATIO" xsi:type="PQ" value="27" /& gt; <interpretationCode codeSystem="local" code="*& quot; /> <referenceRange> <observationRange> <text>6-26</text> </observationRange&gt ; </referenceRange> </observation> </component> <component> <observation moodCode="EVN" classCode="OBS"> <templateId root=" 2.16.840.1.721580.10.20.22.4.2" /> <id nullFlavor="NA& quot; /> <code codeSystem="local" code="300.0100& quot; displayName="NA - Sodium" /> <statusCode code=& quot;completed" /> <effectiveTimevalue="053177613718& quot; /> <value unit="MEQ/L" xsi:type="PQ" value="135" /> <referenceRange> < observationRange> <text>134-144</text> </ observationRange> </referenceRange> </observation&gt ; </component> <component> <observation moodCode ="EVN" classCode="OBS"> <templateId root=& quot;2.16.840.1.626467.10.20.22.4.2" /> <id nullFlavor=&quot ;NA" /> <code codeSystem="local" code=" 300.0150" displayName="Potassium" /> <statusCode code="completed" /> <effectiveTime value=" 852999137441" /> <value unit="MEQ/L" xsi:type=& quot;PQ" value="5.5" /> <interpretationCode codeSystem="local" code="" /> < referenceRange> <observationRange> <text> 3.6-5</text> </observationRange> </ referenceRange> </observation> </component> < component> <observation moodCode="EVN" classCode=" OBS"> <templateId root="2.16.840.1.721559.10..22.4.2& quot; /> <id nullFlavor="NA" /> <code codeSystem="local" code="300.0200" displayName=" Chloride" /> <statusCode code="completed" /> <effectiveTime value="304798423088" /> < value unit="MEQ/L" xsi:type="PQ" value="98" /> <referenceRange> <observationRange> <text>98-107</text> </observationRange> </ referenceRange> </observation> </component> < component> <observation moodCode="EVN" classCode=" OBS"> <templateId root="2.16.840.1.455674.10.20.22.4.2& quot; /> <id nullFlavor="NA" /> <code codeSystem="local" code="300.0250" displayName="CO2 - Carbon Dioxide" /> <statusCode code="completed" /& gt; <effectiveTime value="457913192885" /> &lt ;value unit="MEQ/L" xsi:type="PQ" value="29" /&gt ; <referenceRange> <observationRange> <text>22-30</text> </observationRange> </referenceRange> </observation> </component> <component> <observation moodCode="EVN" classCode= "OBS"> <templateId root=" 2.16.840.1.466145.10.20.22.4.2" /> <id nullFlavor="NA& quot; /> <code codeSystem="local" code="300.0300& quot;displayName="Anion Gap" /> <statusCode code=" completed" /> <effectiveTime value="380132375953" /&gt ; <value unit="MEQ/L" xsi:type="PQ" value=" 8" /> <referenceRange> <observationRange&gt ; <text>5-15</text> </observationRange&gt ; </referenceRange> </observation> </component& gt; <component> <observation moodCode="EVN" classCode="OBS"> <templateId root=" 2.16.840.1.147878.10.20.22.4.2" /> <id nullFlavor="NA& quot;/> <code codeSystem="local" code="300.0350& quot; displayName="BUN- Blood Urea Nitrogen" /> < statusCode code="completed" /> <effectiveTime value=& quot;123491079390" /> <value unit="MG/DL" xsi:type ="PQ" value="40.0" /> <interpretationCode codeSystem="local" code="*" /> < referenceRange> <observationRange> <text>7 -17</text> </observationRange> </ referenceRange> </observation> </component> < component> <observation moodCode="EVN" classCode=" OBS"> <templateId root="2.16.840.1.785325.10.20.22.4.2& quot; /> <id nullFlavor="NA" /> <code codeSystem="local" code="300.0410" displayName=" Glomerular FiltrationRate" /> <statusCode code=" completed" /> <effectiveTimevalue="495580940619" / > <value unit="" xsi:type="PQ" value="34 " /> <referenceRange> <observationRange&gt ; <text>NRG</text> </observationRange> </referenceRange> </observation> </component> <component> <observation moodCode="EVN" classCode=& quot;OBS"> <templateId root=" 2.16.840.1.933194.10.20.22.4.2" /> <id nullFlavor="NA& quot; /> <code codeSystem="local" code="300.0500& quot; displayName="Glucose" /> <statusCode code=" completed" /> <effectiveTime value="408515876889" /> <value unit="MG/DL" xsi:type="PQ" value=& quot;204" /> <interpretationCode codeSystem="local&quot ; code="*" /> <referenceRange> < observationRange> <text>65-110</text> </ observationRange> </referenceRange> </observation&gt ;</component> <component> <observation moodCode=&quot ;EVN" classCode="OBS"> <templateId root=" 2.16.840.1.067222.10.20.22.4.2" /> <id nullFlavor="NA" /> <code codeSystem="local" code="300.2000" displayName="Osmolality,Calculated" /> <statusCode code ="completed" /> <effectiveTime value="084874008839 " /> <value unit="MOSM/KG" xsi:type="PQ&quot ; value="276" /> <referenceRange> < observationRange> <text>261-280</text> </ observationRange> </referenceRange> </observation&gt ; </component> <component> <observation moodCode ="EVN" classCode="OBS"> <templateId root=& quot;2.16.840.1.430517.10.20.22.4.2" /> <id nullFlavor="NA&quot ; /> <code codeSystem="local" code="300.2200&quot ; displayName="Calcium" /> <statusCode code=" completed" /> <effectiveTime value="531853569204" /> <value unit="MG/DL" xsi:type="PQ" value=& quot;8.4" /> <interpretationCode codeSystem="local&quot ; code="" /> <referenceRange> < observationRange> <text>8.4-10.2</text> & lt;/observationRange> </referenceRange> </ observation> </component> <component> < observation moodCode="EVN" classCode="OBS"> < templateId root="2.16.840.1.860131.10.20.22.4.2" /> < id nullFlavor="NA" /> <code codeSystem="local&quot ; code="300.2700" displayName="Bilirubin,Total" /> <statusCode code="completed" /> <effectiveTime value="775906959172" /> <value unit="MG/DL" xsi:type="PQ" value="0.60" /> <referenceRange > <observationRange> <text>0.20-1.30</ text> </observationRange> </referenceRange> & lt;/observation> </component> <component> < observation moodCode="EVN" classCode="OBS"> < templateId root="2.16.840.1.866024.10.20.22.4.2" /> < id nullFlavor="NA" /> <code codeSystem="local&quot ; code="300.2800" displayName="Bilirubin,Unconjugated" /&gt ; <statusCode code="completed" /> < effectiveTime value="944350626076" /> <value unit=&quot ;MG/DL" xsi:type="PQ" value="0.20" /> < referenceRange> <observationRange> <text> 0.00-1.1</text> </observationRange></referenceRange&gt ; </observation> </component> <component> <observation moodCode="EVN" classCode="OBS"> <templateId root="2.16.840.1.273258.10.20.22.4.2" /> <id nullFlavor="NA" /> <code codeSystem="local " code="300.2825" displayName="Bilirubin,Conjugated" /& gt; <statusCode code="completed" /> < effectiveTime value="697591160399" /> <value unit=&quot ;MG/DL" xsi:type="PQ" value="0.00" /> < referenceRange> <observationRange> <text> 0.00-0.30</text> </observationRange> </ referenceRange> </observation> </component> < component> <observation moodCode="EVN" classCode="OBS&quot ;> <templateId root="2.16.840.1.204142.10.20.22.4.2" /& gt; <id nullFlavor="NA" /> <code codeSystem=& quot;local" code="300.2975" displayName="Alkaline Phosphatase" /> <statusCode code="completed" /&gt ; <effectiveTime value="390153464719" /> < value unit="U/L" xsi:type="PQ" value="59" /> <referenceRange> <observationRange> < text>38-126</text> </observationRange> </ referenceRange> </observation> </component> < component> <observation moodCode="EVN" classCode=" OBS"> <templateId root="2.16.840.1.375601.10.20.22.4.2& quot; /> <id nullFlavor="NA" /> <code codeSystem="local" code="300.3050" displayName="AST - Aspartate Amino Transfer" /> <statusCode code=" completed" /> <effectiveTime value="853013283321" /> <value unit="U/L" xsi:type="PQ" value=& quot;24" /> <referenceRange> < observationRange> <text>14-36</text> </ observationRange> </referenceRange> </observation&gt ; </component> <component> <observation moodCode ="EVN" classCode="OBS"> <templateId root=& quot;2.16.840.1.782445.10.20.22.4.2" /> <id nullFlavor=&quot ;NA" /> <code codeSystem="local" code=" 300.3100" displayName="ALT" /> <statusCode code=" completed" /> <effectiveTime value="690909087911" /> <value unit="U/L" xsi:type="PQ" value=& quot;36" /> <referenceRange> < observationRange> <text>9-52</text> </ observationRange> </referenceRange> </observation&gt ; </component> <component> <observation moodCode ="EVN" classCode="OBS"> <templateId root=& quot;[id number]" /> <id nullFlavor=&quot ;NA" /> <code codeSystem="local" code=" 300.3110" displayName="TP - Total Protein" /> < statusCode code="completed" /> <effectiveTime value=& quot;[id number]" /> <value unit="G/DL" xsi:type=& quot;PQ" value="6.6" /> <referenceRange> <observationRange> <text>6.3-8.2</text> </observationRange> </referenceRange> </ observation> </component> <component> < observation moodCode="EVN" classCode="OBS"> < templateId root="2.16.840.1.083657.10.20.22.4.2" /> < id nullFlavor="NA" /> <code codeSystem="local&quot ; code="300.3120" displayName="Albumin Level" /> <statusCode code="completed" /> <effectiveTime value="916688172769" /> <value unit="G/DL" xsi:type="PQ" value="3.3" /> < interpretationCode codeSystem="local" code="*" /> <referenceRange> <observationRange> <text> 3.5-5.0</text> </observationRange> </ referenceRange> </observation> </component>< component> <observation moodCode="EVN" classCode=" OBS"> <templateId root="2.16.840.1.174371.10.20.22.4.2" /> <id nullFlavor="NA" /> <code codeSystem="local" code="300.3130" displayName=" Globulin" /> <statusCode code="completed" /> <effectiveTime value="565559659492" /> < value unit="G/DL" xsi:type="PQ" value="3.3" /> <referenceRange> <observationRange> <text>2.4-3.6</text> </observationRange> </ referenceRange> </observation> </component> < component> <observation moodCode="EVN" classCode="OBS& quot;> <templateIdroot="2.16.840.1.544614.10.20.22.4.2&quot ; /> <id nullFlavor="NA" /> <code codeSystem="local" code="300.3140" displayName="Albumin /Globulin Ratio" /> <statusCode code="completed" / > <effectiveTime value="532658558539" /> & lt;value unit="RATIO" xsi:type="PQ" value="1.0" /& gt; <interpretationCode codeSystem="local" code="*& quot; /> <referenceRange> <observationRange> <text>1.1-2.2</text> </observationRange> </referenceRange> </observation> </component> <component> <observation moodCode="EVN" classCode="OBS"> <templateId root=" 2.16.840.1.842172.10.20.22.4.2" /> <id nullFlavor="NA& quot; /> <codecodeSystem="local" code="300.0095& quot; displayName="LICTERUS" /> <statusCode code=" completed" /> <effectiveTime value="185959980662" /> <value unit="" xsi:type="PQ" value="& amp;lt; 2" /> <referenceRange> < observationRange> <text>0-7</text> </ observationRange> </referenceRange> </observation&gt ; </component> <component> <observation moodCode ="EVN" classCode="OBS"> <templateId root=& quot;2.16.840.1.390001.10.20.22.4.2" /> <id nullFlavor=&quot ;NA" /> <code codeSystem="local" code=" 300.0096" displayName="LHEMOLYSIS" /> <statusCode code="completed" /> <effectiveTime value=" 170719704202" /> <value unit="" xsi:type="PQ" value="< 15" /><referenceRange> < observationRange> <text>0-25</text> </ observationRange> </referenceRange> </observation&gt ; </component> <component> <observation moodCode=& quot;EVN" classCode="OBS"> <templateId root=" 2.16.840.1.416957.10.20.22.4.2" /> <id nullFlavor="NA& quot; /> <code codeSystem="local" code="300.0097& quot; displayName="LTURBIDITY" /> <statusCode code=& quot;completed" /> <effectiveTime value="943637191726& quot; /> <value unit="" xsi:type="PQ" value=& quot;< 20" /> <referenceRange> < observationRange> <text>0-20</text> </ observationRange> </referenceRange> </observation&gt ; </component> </organizer> </entry> <entry> <organizer moodCode="EVN"classCode="BATTERY"> <templateId root="2.16.840.1.333435.10.20.22.4.1" /> < id nullFlavor="NA" /> <code codeSystem="local" code="LMAG" displayName="L200.2000" /> < statusCode code="completed" /> <component> < observation moodCode="EVN" classCode="OBS"> < templateId root="2.16.840.1.125043.10.20.22.4.2" /> < idnullFlavor="NA" /> <code codeSystem="local&quot ; code="300.2350" displayName="MAG - Magnesium" /> <statusCode code="completed"/> <effectiveTime value="648553116901" /> <value unit="MG/DL" xsi:type="PQ" value="1.8" /> <referenceRange& gt; <observationRange> <text>1.6-2.3</text> </observationRange> </referenceRange> &lt ;/observation> </component> </organizer> </entry> <entry> <organizer moodCode="EVN" classCode=" BATTERY"> <templateId root="2.16.840.1.747173.10.20.22.4.1& quot; /> <id nullFlavor="NA" /> <code codeSystem=& quot;local" code="LCBC" displayName="L100.0050" /> <statusCode code="completed" /> <component> & lt;observation moodCode="EVN" classCode="OBS"> < templateId root="2.16.840.1.508792.10.20.22.4.2" /> < id nullFlavor="NA" /> <code codeSystem="local&quot ; code="100.0150" displayName="WBC - WHITE BLOOD COUNT" /&gt ; <statusCode code="completed" /> < effectiveTime value="579397501699" /> <value unit=&quot ;T/MM3" xsi:type="PQ" value="15.3" /> < interpretationCode codeSystem="local" code="" /> <referenceRange> <observationRange> &lt ;text>4.5-11.0</text> </observationRange> </ referenceRange> </observation> </component> < component> <observation moodCode="EVN" classCode=" OBS"> <templateId root="2.16.840.1.464277.10.20.22.4.2& quot; /> <id nullFlavor="NA" /> <code codeSystem="local" code="100.0250" displayName="RED BLOOD COUNT" /> <statusCode code="completed" /&gt ; <effectiveTime value="090274525270" /> < value unit="M/MM3" xsi:type="PQ" value="4.05" /&gt ; <referenceRange> <observationRange> <text>4.00-5.20</text> </observationRange></ referenceRange> </observation> </component> < component> <observation moodCode="EVN" classCode="OBS& quot;> <templateId root="2.16.840.1.845278.10.20.22.4.2&quot ; /> <id nullFlavor="NA" /> <code codeSystem="local" code="100.0300" displayName="HGB - HEMOGLOBIN" /> <statusCode code="completed" /> <effectiveTime value="732133885877" /> < value unit="GM/DL" xsi:type="PQ" value="12.0" /&gt ; <referenceRange> <observationRange> <text>12-16</text> </observationRange> </referenceRange> </observation> </component> <component> <observation moodCode="EVN" classCode=& quot;OBS"> <templateId root=" 2.16.840.1.705405.10.20.22.4.2" /> <id nullFlavor="NA& quot; /> <code codeSystem="local" code="100.0400& quot; displayName="HCT - HEMATOCRIT" /> <statusCode code="completed" /> <effectiveTime value=" 048047650716" /> <value unit="%" xsi:type= "PQ" value="37.2" /> <interpretationCode codeSystem="local" code="" /> < referenceRange> <observationRange> <text> 36-46</text> </observationRange> </ referenceRange></observation> </component> < component> <observation moodCode="EVN" classCode=" OBS"> <templateId root="2.16.840.1.296678.10.20.22.4.2& quot; /> <id nullFlavor="NA" /> <code codeSystem="local" code="100.0550" displayName="MEAN CORPUSCULAR VOLUME" /> <statusCode code="completed" /&gt ; <effectiveTime value="142889399088" /> < value unit="UM3" xsi:type="PQ" value="91.9" /> <referenceRange> <observationRange> <text>80-100</text> </observationRange> </referenceRange> </observation> </component> <component> <observation moodCode="EVN" classCode= "OBS"> <templateId root=" 2.16.840.1.906873.10.20.22.4.2" /> <id nullFlavor="NA& quot; /> <code codeSystem="local" code="100.0600& quot; displayName="MEAN CORPUSCULAR HGB" /> < statusCode code="completed" /> <effectiveTime value=& quot;605277323101" /> <value unit="UUG" xsi:type=& quot;PQ" value="29.6" /> <referenceRange> <observationRange> <text>26-34</text> </observationRange> </referenceRange> </ observation> </component> <component> < observation moodCode="EVN" classCode="OBS"> < templateId root="2.16.840.1.877652.10.20.22.4.2" /> < id nullFlavor="NA" /> <code codeSystem="local&quot ; code="100.0650" displayName="MEAN CORPUSCULAR HGB CONC([facility]& quot; /> <statusCode code="completed" /> & lt;effectiveTime value="186477074893" /> <value unit=& quot;GM/DL" xsi:type="PQ" value="32.3" /> & lt;referenceRange> <observationRange> <text& gt;31-37</text> </observationRange> </ referenceRange> </observation> </component> < component> <observation moodCode="EVN" classCode=" OBS"> <templateId root="2.16.840.1.511408.10.20.22.4.2& quot; /> <id nullFlavor="NA" /> <code codeSystem="local" code="100.0750" displayName="RDW STANDARD DEVIATION" /> <statusCode code="completed&quot ; /> <effectiveTime value="354760151889" /> <value unit="FL" xsi:type="PQ" value="56.6" / > <interpretationCode codeSystem="local" code="*" /& gt; <referenceRange> <observationRange> <text>36.9-50.2</text> </observationRange> </referenceRange> </observation> </component> <component> <observation moodCode="EVN" classCode=& quot;OBS"> <templateId root=" 2.16.840.1.975400.10.20.22.4.2" /> <id nullFlavor="NA" /&gt ; <code codeSystem="local" code="100.0850" displayName="PLT - PLATELET COUNT" /> <statusCode code= "completed" /> <effectiveTime value="377051661510& quot; /> <value unit="T/MM3" xsi:type="PQ" value="155" /> <referenceRange> < observationRange> <text>130-400</text> & lt;/observationRange> </referenceRange> </ observation> </component> <component> < observation moodCode="EVN" classCode="OBS"> < templateId root="2.16.840.1.860959.10.20.22.4.2" /> < id nullFlavor="NA" /> <code codeSystem="local&quot ; code="100.0950" displayName="MEAN PLATELET VOLUME" /> <statusCode code="completed" /> < effectiveTime value="694748193591" /> <value unit=&quot ;UM3" xsi:type="PQ" value="10.2" /> < referenceRange> <observationRange> <text> 9.4-12.4</text> </observationRange> </ referenceRange> </observation> </component> </ organizer> </entry> <entry> <organizer moodCode="EVN " classCode="BATTERY"> <templateId root=" 2.16.840.1.829472.10.20.22.4.1" /> <id nullFlavor="NA&quot ; /> <code codeSystem="local" code="LDIFFM" displayName="L100.0105" /> <statusCode code="completed "/> <component> <observation moodCode="EVN& quot; classCode="OBS"> <templateId root=" 2.16.840.1.487254.10.20.22.4.2" /> <id nullFlavor="NA& quot; /> <code codeSystem="local" code="100.1650& quot; displayName="NEUTROPHILS % (MANUAL)" /> < statusCode code="completed" /> <effectiveTime value=& quot;520370911588" /> <value unit="%" xsi: type="PQ" value="82.0" /> < interpretationCode codeSystem="local" code="*" /> <referenceRange> <observationRange> <text >33-66</text> </observationRange> </ referenceRange> </observation> </component> < component> <observation moodCode="EVN" classCode=" OBS"> <templateId root="2.16.840.1.850484.10.20.22.4.2& quot; /> <id nullFlavor="NA" /> <code codeSystem="local" code="100.1750" displayName="BAND NEUTROPHILS %" /> <statusCode code="completed& quot; /> <effectiveTime value="699456825213" /> <value unit="%" xsi:type="PQ" value=" 8.0" /> <interpretationCodecodeSystem="local" code ="" /> <referenceRange> < observationRange> <text>0-6</text> </ observationRange> </referenceRange> </observation&gt ; </component> <component> <observation moodCode ="EVN" classCode="OBS"> <templateId root=& quot;2.16.840.1.526857.10.20.22.4.2" /> <id nullFlavor=&quot ;NA" /> <code codeSystem="local" code=" 100.1850" displayName="LYMPHOCYTES % (MANUAL)" /> <statusCode code="completed" /> <effectiveTime value="570489608004" /> <value unit="%& quot; xsi:type="PQ" value="4.0" /> < interpretationCode codeSystem="local" code="*" /> <referenceRange> <observationRange> < text>23-45</text> </observationRange> </ referenceRange> </observation> </component> < component> <observation moodCode="EVN" classCode="OBS& quot;> <templateIdroot="2.16.840.1.050035.10.20.22.4.2&quot ; /> <id nullFlavor="NA" /> <code codeSystem="local" code="100.1950" displayName=" MONOCYTES % (MANUAL)" /> <statusCode code=" completed" /> <effectiveTime value="431749446490" /> <value unit="%" xsi:type="PQ" value="4.0" /> <referenceRange> < observationRange> <text>0-9.0</text> < /observationRange> </referenceRange> </observation> </component> <component> <observation moodCode=& quot;EVN" classCode="OBS"> <templateId root=" 2.16.840.1.885353.10..22.4.2" /> <id nullFlavor="NA& quot; /> <code codeSystem="local" code="100.2049& quot; displayName="EOSINOPHILS % (MANUAL)" /> < statusCode code="completed" /> <effectiveTime value=" 531213162416" /> <value unit="%" xsi:type= "PQ" value="1.0" /> <referenceRange> <observationRange> <text>0-4</text> </observationRange> </referenceRange> </ observation> </component> <component> < observation moodCode="EVN" classCode="OBS"> < templateId root="2.16.840.1.649748.10..22.4.2" /> < id nullFlavor="NA" /> <code codeSystem="local&quot ; code="100.0" displayName="METAMYELOCYTES %" /& gt; <statusCode code="completed" /> <effectiveTime value="264649400909" /> <value unit="%& quot; xsi:type="PQ" value="1.0" /> < interpretationCode codeSystem="local" code="*" /> <referenceRange> <observationRange> < text>0-0</text> </observationRange> </ referenceRange> </observation> </component> < component> <observation moodCode="EVN" classCode=" OBS"> <templateId root="2.16.840.1.119424.10.20.22.4.2& quot; /> <id nullFlavor="NA" /> <code codeSystem= "local" code="100.2400" displayName="PROLYMPHOCYTES & amp;#37;" /> <statusCode code="completed" /> <effectiveTime value="259762580646" /> < value unit="T/MM3" xsi:type="PQ" value="12.5" /&gt ; <interpretationCode codeSystem="local" code="*&quot ; /> <referenceRange> <observationRange> <text>1.8-7.7</text> </observationRange> </referenceRange> </observation> </component > <component> <observation moodCode="EVN" classCode="OBS"> <templateId root=" 2.16.840.1.901080.10..22.4.2" /> <id nullFlavor="NA& quot; /> <code codeSystem="local" code="100.2450& quot; displayName="PLASMA CELLS %" /> < statusCode code="completed" /> <effectiveTime value=& quot;220713321742" /> <value unit="T/MM3" xsi:type ="PQ" value="1.2" /> <referenceRange> <observationRange> <text>NRG</text> </observationRange> </referenceRange> </ observation> </component> <component> < observation moodCode="EVN" classCode="OBS"> < templateId root="2.16.840.1.960450.10.20.22.4.2" /> < id nullFlavor="NA" /> <code codeSystem="local&quot ; code="100.2650" displayName="NEUTROPHILS # (MANUAL)" /&gt ; <statusCode code="completed" /> <effectiveTime value="235854100774" /> <value unit="T/MM3" xsi:type="PQ" value="0.6"/> <referenceRange& gt; <observationRange> <text>0-0.8</text& gt; </observationRange> </referenceRange> </observation> </component> <component> &lt ;observation moodCode="EVN" classCode="OBS"> &lt ;templateId root="2.16.840.1.922324.10.20.22.4.2" /> < id nullFlavor="NA" /> <code codeSystem="local&quot ; code="100.2750" displayName="MONOCYTES # (MANUAL)" /> <statusCode code="completed" /> < effectiveTime value="806272157975" /> <value unit=&quot ;T/MM3" xsi:type="PQ" value="0.2" /> < referenceRange> <observationRange> <text> 0-0.5</text> </observationRange> </ referenceRange> </observation> </component> < component> <observation moodCode="EVN"classCode="OBS "> <templateId root="2.16.840.1.634017.10.20.22.4.2& quot; /> <id nullFlavor="NA" /> <code codeSystem="local" code="100.2900" displayName=" METAMYELOCYTES #" /> <statusCode code="completed" /> <effectiveTime value="206970881101" /> < value unit="T/MM3" xsi:type="PQ" value="0.2" /&gt ; <referenceRange> <observationRange> <text>NRG</text> </observationRange> </ referenceRange> </observation> </component> < component> <observation moodCode="EVN" classCode=" OBS"> <templateId root="2.16.840.1.167174.10.20.22.4.2& quot; /> <id nullFlavor="NA" /> <code codeSystem ="local" code="100.4750" displayName="MACROCYTOSIS&quot ; /> <statusCode code="completed" /> < effectiveTime value="826915927674" /> <value unit=&quot ;" xsi:type="PQ" value="1+" /> < referenceRange> <observationRange> <text>NRG< /text> </observationRange> </referenceRange> </observation> </component> <component> <observation moodCode="EVN" classCode="OBS"> < templateId root="2.16.840.1.183628.10.20.22.4.2" /> < id nullFlavor="NA" /> <code codeSystem="local&quot ; code="100.4850" displayName="POLYCHROMASIA" /> <statusCode code="completed" /> <effectiveTime value="542577709089" /> <value unit="" xsi: type="PQ" value="1+" /> <referenceRange> <observationRange> <text>NRG</text> </observationRange> </referenceRange> < /observation> </component> <component> < observation moodCode="EVN" classCode="OBS"> < templateId root="2.16.840.1.028517.10.20.22.4.2" /> < id nullFlavor="NA" /> <code codeSystem="local" code= "100.2550" displayName="Lymphocytes # (Manual)" /> <statusCode code="completed" /> <effectiveTime value="940933964943" /> <value unit="T/MM3" xsi:type="PQ" value="0.6" /> < interpretationCode codeSystem="local" code="*" /> <referenceRange> <observationRange> < text>1-4.8</text> </observationRange> </ referenceRange> </observation> </component> < component> <observation moodCode="EVN" classCode=" OBS"> <templateId root="2.16.840.1.264653.10.20.22.4.2& quot; /> <id nullFlavor="NA" /> <code codeSystem="local" code="100.4565" displayName="LRBCMOR " /> <statusCode code="completed" /> & lt;effectiveTime value="593170835791" /> <value unit=& quot;" xsi:type="PQ" value="Abnormal" /> < referenceRange> <observationRange> <text> NRG</text> </observationRange> </ referenceRange> </observation> </component> </ organizer> </entry> <entry> <organizer moodCode="EVN " classCode="BATTERY"> <templateId root=" 2.16.840.1.082376.10.20.22.4.1" /> <id nullFlavor="NA&quot ; /> <code codeSystem="local" code="LBMP" displayName="L200.0050" /> <statusCode code="completed " /> <component> <observation moodCode="EVN& quot; classCode="OBS"> <templateId root=" 2.16.840.1.892243.10.20.22.4.2" /> <id nullFlavor="NA& quot; /> <code codeSystem="local" code="300.0400& quot; displayName="FUNGAL CULTURE." /> <statusCode code ="completed" /> <effectiveTime value="792527935767 " /> <value unit="MG/DL" xsi:type="PQ" value="1.2" /> <interpretationCode codeSystem=" local" code="" /> <referenceRange> <observationRange> <text>0.7-1.2</text> </observationRange> </referenceRange> </ observation> </component> <component> < observation moodCode="EVN" classCode="OBS"> < templateId root="2.16.840.1.822637.10.20.22.4.2" /> < id nullFlavor="NA" /> <code codeSystem="local&quot ; code="300.0450"displayName="FUNGAL CULTURE, BLOOD." /> <statusCode code="completed" /> < effectiveTime value="944782030880" /> <value unit=&quot ;RATIO" xsi:type="PQ" value="37" /> < interpretationCode codeSystem="local" code="*" /> <referenceRange> <observationRange> < text>6-26</text> </observationRange> </ referenceRange> </observation> </component> < component> <observation moodCode="EVN" classCode=" OBS"> <templateId root="2.16.840.1.441580.10.20.22.4.2& quot; /> <id nullFlavor="NA" /> <code codeSystem="local" code="300.0100" displayName="NA - Sodium" /> <statusCode code="completed" /> <effectiveTime value="895193933143" /> <value unit="MEQ/L" xsi:type="PQ" value="136" /> <referenceRange> <observationRange> < text>134-144</text> </observationRange> </ referenceRange> </observation> </component> < component> <observation moodCode="EVN" classCode=" OBS"> <templateId root="2.16.840.1.515363.10.20.22.4.2& quot; /> <id nullFlavor="NA" /> <code codeSystem="local" code="300.0150" displayName=" Potassium" /> <statusCode code="completed" /> <effectiveTime value="128826517239" /> < value unit="MEQ/L" xsi:type="PQ" value="5.2" /&gt ; <interpretationCode codeSystem="local" code="*&quot ; /> <referenceRange> <observationRange> <text>3.6-5</text> </observationRange> </referenceRange> </observation> </component& gt; <component> <observation moodCode="EVN" classCode="OBS"> <templateId root=" 2.16.840.1.522165.10.20.22.4.2" /> <id nullFlavor="NA& quot; /> <code codeSystem="local" code="300.0200& quot; displayName="Chloride" /> <statusCode code=" completed" /> <effectiveTime value="740673681057" /> <value unit="MEQ/L" xsi:type="PQ" value=& quot;101" /> <referenceRange> < observationRange> <text>98-107</text> </ observationRange> </referenceRange> </observation&gt ; </component> <component> <observation moodCode ="EVN" classCode="OBS"> <templateId root=& quot;2.16.840.1.773098.10.20.22.4.2" /> <id nullFlavor=&quot ;NA" /> <code codeSystem="local" code=" 300.0250" displayName="CO2 - Carbon Dioxide" /> < statusCode code="completed" /> <effectiveTime value=& quot;559230117048" /> <value unit="MEQ/L" xsi:type ="PQ" value="26" /> <referenceRange> <observationRange> <text>22-30</text> </observationRange> </referenceRange> </ observation> </component> <component> < observation moodCode="EVN" classCode="OBS"> < templateId root="2.16.840.1.761227.10..22.4.2" /> < id nullFlavor="NA" /> <code codeSystem="local&quot ; code="300.0300" displayName="Anion Gap" /> &lt ;statusCode code="completed" /> <effectiveTime value=" 616836599125" /> <value unit="MEQ/L" xsi:type=& quot;PQ" value="9" /> <referenceRange> <observationRange> <text>5-15</text> </observationRange> </referenceRange> </ observation> </component> <component> < observation moodCode="EVN" classCode="OBS"> < templateId root="2.16.840.1.223587.10.20.22.4.2" /> < id nullFlavor="NA" /> <code codeSystem="local&quot ; code="300.0350" displayName="BUN - Blood Urea Nitrogen" /& gt; <statusCode code="completed" /><effectiveTime value="006364828065" /> <value unit="MG/DL" xsi:type="PQ" value="44.0" /> < interpretationCode codeSystem="local" code="*" /> <referenceRange> <observationRange> < text>7-17</text> </observationRange> </ referenceRange> </observation> </component> < component> <observation moodCode="EVN" classCode=" OBS"> <templateId root="2.16.840.1.688515.10.20.22.4.2& quot; /> <id nullFlavor="NA" /> <code codeSystem="local" code="300.0410" displayName=" Glomerular Filtration Rate" /> <statusCode code=" completed" /> <effectiveTime value="621483981219" /> <value unit="" xsi:type="PQ" value=" 44" /> <referenceRange> <observationRange& gt; <text>NRG</text> </observationRange> </referenceRange> </observation> </component> <component> <observationmoodCode="EVN" classCode ="OBS"> <templateId root=" 2.16.840.1.462019.10.20.22.4.2" /> <id nullFlavor="NA& quot; /> <code codeSystem="local" code="300.0500& quot; displayName="Glucose" /> <statusCode code=" completed" /> <effectiveTime value="104774614070" /> <value unit="MG/DL" xsi:type="PQ" value=& quot;260" /> <interpretationCode codeSystem="local&quot ; code="*" /> <referenceRange> < observationRange> <text>65-110</text> </ observationRange> </referenceRange> </observation&gt ; </component> <component> <observation moodCode=& quot;EVN" classCode="OBS"> <templateId root=" 2.16.840.1.129556.10.20.22.4.2" /> <id nullFlavor="NA&quot ; /> <code codeSystem="local" code="300.2000&quot ; displayName="Osmolality,Calculated" /> <statusCode code="completed" /> <effectiveTime value=" 142901017888" /> <value unit="MOSM/KG" xsi:type=& quot;PQ" value="282" /> <interpretationCode codeSystem="local" code="*" /> < referenceRange> <observationRange> <text> 261-280</text> </observationRange> </ referenceRange> </observation> </component> < component> <observation moodCode="EVN" classCode=" OBS"> <templateId root="2.16.840.1.582257.10.20.22.4.2& quot; /> <id nullFlavor="NA" /> <code codeSystem="local" code="300.2200" displayName="Calcium " /> <statusCode code="completed" /> < effectiveTime value="881453798140" /> <value unit=&quot ;MG/DL" xsi:type="PQ" value="8.5" /> < referenceRange> <observationRange> <text> 8.4-10.2</text> </observationRange> </ referenceRange> </observation> </component> < component> <observation moodCode="EVN" classCode=" OBS"> <templateId root="2.16.840.1.791298.10.20.22.4.2& quot; /> <id nullFlavor="NA" /> <code codeSystem="local" code="300.0095" displayName=" LICTERUS" /> <statusCode code="completed" /> <effectiveTime value="014351913791" /> < value unit="" xsi:type="PQ"value="< 2" /&gt ; <referenceRange> <observationRange> <text>0-7</text> </observationRange> & lt;/referenceRange> </observation> </component> <component> <observation moodCode="EVN" classCode=& quot;OBS"> <templateId root=" 2.16.840.1.941339.10.20.22.4.2" /> <id nullFlavor="NA& quot; /> <code codeSystem="local" code="300.0096& quot; displayName="LHEMOLYSIS" /> <statusCode code=& quot;completed" /> <effectiveTime value="960259374700& quot; /> <value unit="" xsi:type="PQ" value=& quot;42" /> <interpretationCode codeSystem="local&quot ; code="*" /> <referenceRange> < observationRange> <text>0-25</text> </ observationRange> </referenceRange> </observation&gt ; </component> <component> <observation moodCode ="EVN" classCode="OBS"> <templateId root=& quot;[id number]" /> <id nullFlavor=&quot ;NA" /> <code codeSystem="local" code=" 300.0097" displayName="LTURBIDITY" /> <statusCode code="completed" /> <effectiveTime value=" [id number]" /> <value unit="" xsi:type="PQ& quot; value="< 20" /> <referenceRange> <observationRange> <text>0-20</text> </observationRange> </referenceRange> </ observation> </component> </organizer> </entry> & lt;entry> <organizer moodCode="EVN" classCode="BATTERY& quot;> <templateId root="2.16.840.1.531375.10.20.22.4.1" /& gt; <id nullFlavor="NA" /> <code codeSystem=" local" code="LBGM" displayName="L900.0530" /> & lt;statusCode code="completed" /> <component> &lt ;observation moodCode="EVN" classCode="OBS"> &lt ;templateId root="2.16.840.1.272782.10.20.22.4.2" /> < id nullFlavor="NA" /> <code codeSystem="local&quot ; code="850.0100" displayName="Glucometer" /> & lt;statusCode code="completed" /> <effectiveTime value= "803856702846" /> <value unit="mg/dL" xsi: type="PQ" value="268" /> <referenceRange> <observationRange> <text>65-110</text> </observationRange> </referenceRange> </ observation> </component> </organizer> </entry> & lt;entry> <organizer moodCode="EVN" classCode="BATTERY& quot;> <templateId root="2.16.840.1.330298.10.20.22.4.1" /& gt; <id nullFlavor="NA" /> <code codeSystem=" local" code="LBGM" displayName="L900.0530" /> & lt;statusCode code="completed" /> <component> &lt ;observation moodCode="EVN" classCode="OBS"> < templateId root="2.16.840.1.992982.10.20.22.4.2" /> < id nullFlavor="NA" /> <code codeSystem="local&quot ; code="850.0100" displayName="Glucometer" /> & lt;statusCode code="completed" /> <effectiveTime value= "112547700471" /> <value unit="mg/dL" xsi: type="PQ" value="341" /> <referenceRange> <observationRange> <text>65-110</text&gt ; </observationRange> </referenceRange> </ observation> </component> </organizer></entry> &lt ;entry> <organizer moodCode="EVN" classCode="BATTERY& quot;> <templateId root="2.16.840.1.643441.10.20.22.4.1" /& gt; <id nullFlavor="NA" /> <code codeSystem=" local" code="LBGM" displayName="L900.0530" /> & lt;statusCode code="completed" /> <component> &lt ;observation moodCode="EVN" classCode="OBS"> &lt ;templateId root="2.16.840.1.655397.10..22.4.2" /> < id nullFlavor="NA" /> <code codeSystem="local&quot ; code="850.0100" displayName="Glucometer" /> & lt;statusCode code="completed" /> <effectiveTime value= "106754966505" /> <value unit="mg/dL" xsi: type="PQ" value="305" /> <referenceRange> <observationRange> <text>65-110</text> </observationRange> </referenceRange> </ observation> </component> </organizer> </entry>&lt ;entry> <organizer moodCode="EVN" classCode="BATTERY& quot;> <templateId root="2.16.840.1.737366.10.20.22.4.1" /& gt; <id nullFlavor="NA"/> <code codeSystem=" local" code="LBGM" displayName="L900.0530" /> & lt;statusCode code="completed" /> <component> &lt ;observation moodCode="EVN" classCode="OBS"> &lt ;templateId root="2.16.840.1.364654.10..22.4.2" /> < id nullFlavor="NA" /> <code codeSystem="local&quot ; code="850.0100" displayName="Glucometer" /> &lt ;statusCode code="completed" /> <effectiveTime value=& quot;350229561677" /> <value unit="mg/dL" xsi:type ="PQ" value="179" /> <referenceRange> <observationRange> <text>65-110</text> </observationRange> </referenceRange> </ observation> </component> </organizer> </entry> & lt;entry> <organizer moodCode="EVN" classCode="BATTERY&quot ;> <templateId root="2.16.840.1.540431.10.20.22.4.1" /> <id nullFlavor="NA" /> <code codeSystem=" local" code="LBGM" displayName="L900.0530" /> & lt;statusCode code="completed" /> <component> &lt ;observation moodCode="EVN" classCode="OBS"> &lt ;templateId root="2.16.840.1.531477.10..22.4.2" /> < id nullFlavor="NA" /> <code codeSystem="local&quot ; code="850.0100" displayName="Glucometer" /> & lt;statusCode code="completed" /> <effectiveTime value= "601201542260" /> <value unit="mg/dL" xsi: type="PQ" value="215" /> <referenceRange> <observationRange> <text>65-110</text> </observationRange> </referenceRange> < /observation> </component> </organizer> </entry> <entry> <organizer moodCode="EVN" classCode="BATTERY& quot;> <templateId root="2.16.840.1.012581.10..22.4.1" /& gt; <id nullFlavor="NA" /> <code codeSystem=" local" code="LCMP" displayName="L200.0020" /> & lt;statusCode code="completed" /> <component> &lt ;observation moodCode="EVN" classCode="OBS"> &lt ;templateId root="2.16.840.1.155162.10.20.22.4.2" /> < id nullFlavor="NA" /> <code codeSystem="local&quot ; code="300.0400" displayName="FUNGAL CULTURE." /> <statusCode code="completed" /> <effectiveTime value="181605505728" /> <value unit="MG/DL" xsi:type= "PQ" value="1.1" /> <referenceRange> <observationRange> <text>0.7-1.2</text> </observationRange> </referenceRange> </ observation> </component> <component> < observation moodCode="EVN" classCode="OBS"> < templateId root="2.16.840.1.222149.10.20.22.4.2" /> <id nullFlavor="NA" /> <code codeSystem="local" code="300.0450" displayName="FUNGAL CULTURE, BLOOD." /> <statusCode code="completed" /> < effectiveTime value="391531985721" /> <value unit=&quot ;RATIO" xsi:type="PQ" value="36" /> < interpretationCode codeSystem="local" code="*" /> <referenceRange> <observationRange> <text >6-26</text> </observationRange> </ referenceRange> </observation> </component> < component> <observation moodCode="EVN" classCode=" OBS"> <templateId root="2.16.840.1.861312.10.20.22.4.2&quot ; /> <id nullFlavor="NA" /> <code codeSystem="local" code="300.0100" displayName="NA - Sodium" /> <statusCode code="completed" /> < effectiveTime value="368567539761" /> <value unit=&quot ;MEQ/L" xsi:type="PQ" value="133" /> < interpretationCode codeSystem="local" code="*" /> <referenceRange> <observationRange> < text>134-144</text> </observationRange> </ referenceRange> </observation> </component> < component> <observation moodCode="EVN" classCode=" OBS"> <templateId root="2.16.840.1.083784.10.20.22.4.2& quot; /> <id nullFlavor="NA" /> <code codeSystem= "local" code="300.0150" displayName="Potassium" /& gt; <statusCode code="completed" /> < effectiveTime value="798473505371" /> <value unit=&quot ;MEQ/L" xsi:type="PQ" value="5.4" /> < interpretationCode codeSystem="local" code="*" /> <referenceRange> <observationRange> < text>3.6-5</text> </observationRange> </ referenceRange> </observation> </component> < component> <observation moodCode="EVN" classCode=" OBS"> <templateId root="2.16.840.1.453749.10.20.22.4.2& quot; /> <id nullFlavor="NA" /> <code codeSystem="local" code="300.0200" displayName=" Chloride" /> <statusCode code="completed" /> <effectiveTime value="172883223897" /> < value unit="MEQ/L" xsi:type="PQ" value="96" /> <interpretationCode codeSystem="local" code="*&quot ; /> <referenceRange> <observationRange> <text>98-107</text> </observationRange> </referenceRange> </observation> </component&gt ; <component> <observation moodCode="EVN" classCode ="OBS"> <templateId root=" 2.16.840.1.087344.10.20.22.4.2" /> <id nullFlavor="NA& quot; /> <code codeSystem="local" code="300.0250& quot; displayName="CO2 - Carbon Dioxide" /> < statusCode code="completed" /> <effectiveTime value=& quot;583279801089" /> <value unit="MEQ/L" xsi:type ="PQ" value="29" /> <referenceRange> < observationRange> <text>22-30</text> < /observationRange> </referenceRange> </observation& gt; </component> <component> <observation moodCode="EVN" classCode="OBS"> <templateId root="2.16.840.1.469769.10.20.22.4.2" /> <id nullFlavor ="NA" /> <code codeSystem="local" code=" 300.0300" displayName="Anion Gap" /> <statusCode code="completed" /> <effectiveTime value=" 849111868648" /> <value unit="MEQ/L" xsi:type=& quot;PQ" value="8" /> <referenceRange> <observationRange> <text>5-15</text> </observationRange> </referenceRange> </ observation> </component> <component> < observation moodCode="EVN" classCode="OBS"> < templateId root="2.16.840.1.783132.10.20.22.4.2" /> < id nullFlavor="NA" /> <code codeSystem="local" code=& quot;300.0350" displayName="BUN - Blood UreaNitrogen" /> <statusCode code="completed" /> <effectiveTime value="559967511110" /> <value unit="MG/DL" xsi:type="PQ" value="39.0" /> < interpretationCode codeSystem="local" code="*" /> <referenceRange> <observationRange><text>7-17&lt ;/text> </observationRange> </referenceRange&gt ; </observation> </component> <component> <observation moodCode="EVN" classCode="OBS"> <templateId root="2.16.840.1.836136.10.20.22.4.2" /> <id nullFlavor="NA" /> <code codeSystem=" local" code="300.0410" displayName="Glomerular Filtration Rate" /> <statusCode code="completed" /> <effectiveTime value="145350200055" /> <value unit="" xsi:type="PQ" value="49" /> & lt;referenceRange> <observationRange> <text& gt;NRG</text> </observationRange> </ referenceRange> </observation> </component> < component> <observation moodCode="EVN" classCode=" OBS"> <templateId root="2.16.840.1.475128.10.20.22.4.2& quot; /> <id nullFlavor="NA" /> <code codeSystem="local" code="300.0500" displayName="Glucose " /> <statusCode code="completed" /> & lt;effectiveTime value="588361998987" /> <value unit="MG /DL" xsi:type="PQ" value="244" /> < interpretationCode codeSystem="local" code="*" /> <referenceRange> <observationRange> < text>65-110</text> </observationRange> </ referenceRange> </observation> </component> < component> <observation moodCode="EVN" classCode=" OBS"> <templateId root="2.16.840.1.080069.10.20.22.4.2& quot; /> <id nullFlavor="NA" /> <code codeSystem="local" code="300.2000" displayName=" Osmolality,Calculated" /> <statusCode code="completed& quot; /> <effectiveTime value="491924849739" /> <value unit="MOSM/KG" xsi:type="PQ" value="273 " /> <referenceRange> <observationRange&gt ; <text>261-280</text> </observationRange > </referenceRange> </observation> </ component> <component> <observation moodCode="EVN& quot; classCode="OBS"> <templateId root=" 2.16.840.1.533287.10.20.22.4.2" /> <id nullFlavor="NA& quot; /> <code codeSystem="local" code="300.2200& quot;displayName="Calcium" /> <statusCode code=" completed" /> <effectiveTime value="339482550000" /> <value unit="MG/DL" xsi:type="PQ" value=" 9.0" /> <referenceRange> <observationRange& gt; <text>8.4-10.2</text> </ observationRange> </referenceRange> </observation&gt ; </component> <component> <observation moodCode ="EVN" classCode="OBS"> <templateId root=& quot;2.16.840.1.725927.10.20.22.4.2" /> <id nullFlavor=&quot ;NA" /> <code codeSystem="local" code=" 300.2700" displayName="Bilirubin,Total" /> < statusCode code="completed" /> <effectiveTime value=& quot;584282165430" /> <value unit="MG/DL" xsi:type ="PQ" value="0.30" /> <referenceRange> <observationRange> <text>0.20-1.30</text&gt ; </observationRange> </referenceRange> </ observation> </component> <component> < observation moodCode="EVN" classCode="OBS"> < templateId root="2.16.840.1.902774.10.20.22.4.2" /> < id nullFlavor="NA" /> <code codeSystem="local&quot ; code="300.2975" displayName="Alkaline Phosphatase" /> <statusCode code="completed" /> < effectiveTime value="767285911202" /> <value unit=&quot ;U/L" xsi:type="PQ" value="67" /> < referenceRange> <observationRange> <text> 38-126</text> </observationRange> </ referenceRange> </observation> </component> < component> <observation moodCode="EVN" classCode=" OBS"> <templateId root="2.16.840.1.126909.10.20.22.4.2& quot; /> <id nullFlavor="NA" /> <code codeSystem= "local" code="300.3050" displayName="AST - Aspartate Amino Transfer" /> <statusCode code="completed" /& gt; <effectiveTime value="765408768324" /> &lt ;value unit="U/L" xsi:type="PQ" value="18" /> <referenceRange> <observationRange> <text>14-36</text> </observationRange> & lt;/referenceRange> </observation> </component> <component> <observation moodCode="EVN" classCode=& quot;OBS"> <templateId root=" 2.16.840.1.722009.10..22.4.2" /> <id nullFlavor="NA& quot; /><code codeSystem="local" code="300.3100" displayName="ALT" /> <statusCode code="completed&quot ; /> <effectiveTime value="318488564019" /> <value unit="U/L" xsi:type="PQ" value="28" /& gt; <referenceRange> <observationRange> <text>9-52</text> </observationRange> </referenceRange> </observation> </component> <component> <observation moodCode="EVN" classCode ="OBS"> <templateId root=" 2.16.840.1.821232.10.20.22.4.2" /> <id nullFlavor="NA& quot; /> <code codeSystem="local" code="300.3110& quot; displayName="TP - Total Protein" /> <statusCode code="completed" /> <effectiveTime value=" 977317667728" /> <value unit="G/DL" xsi:type=&quot ;PQ" value="7.1" /> <referenceRange> < observationRange> <text>6.3-8.2</text> & lt;/observationRange> </referenceRange> </ observation> </component> <component> < observation moodCode="EVN" classCode="OBS"> < templateId root="2.16.840.1.929738.10.20.22.4.2"/> <id nullFlavor="NA" /> <code codeSystem="local" code="300.3120" displayName="Albumin Level" /> & lt;statusCode code="completed" /> <effectiveTime value= "308924456362" /> <value unit="G/DL" xsi:type ="PQ" value="3.5" /> <referenceRange> <observationRange> <text>3.5-5.0</text> </observationRange> </referenceRange> </ observation> </component> <component> < observation moodCode="EVN" classCode="OBS"> < templateId root="2.16.840.1.587681.10.20.22.4.2" /> <id nullFlavor="NA" /> <code codeSystem="local" code="300.3130" displayName="Globulin" /> < statusCode code="completed" /> <effectiveTime value=& quot;682986293373" /> <value unit="G/DL" xsi:type= "PQ" value="3.6" /> <referenceRange> & lt;observationRange> <text>2.4-3.6</text> </observationRange> </referenceRange> </ observation> </component> <component> < observation moodCode="EVN" classCode="OBS"> < templateId root="2.16.840.1.699690.10.20.22.4.2" /> < id nullFlavor="NA" /> <code codeSystem="local&quot ; code="300.3140" displayName="Albumin/Globulin Ratio" /&gt ; <statusCode code="completed" /> < effectiveTime value="746829872962" /> <value unit=&quot ;RATIO" xsi:type="PQ" value="1.0" /> < interpretationCode codeSystem="local" code="*" /> <referenceRange> <observationRange> < text>1.1-2.2</text> </observationRange> </ referenceRange> </observation> </component> < component> <observation moodCode="EVN" classCode="OBS "> <templateId root="2.16.840.1.945896.10..22.4.2& quot; /> <id nullFlavor="NA" /> <code codeSystem="local" code="300.0095" displayName=" LICTERUS" /> <statusCode code="completed" /> <effectiveTime value="615008526391" /> < value unit="" xsi:type="PQ" value="< 2" /& gt; <referenceRange> <observationRange> & lt;text>0-7</text> </observationRange> </ referenceRange> </observation> </component> < component> <observation moodCode="EVN" classCode=" OBS"> <templateId root="2.16.840.1.027273.10.20.22.4.2& quot; /> <id nullFlavor="NA" /> < codecodeSystem="local" code="300.0096" displayName=" LHEMOLYSIS" /> <statusCode code="completed" /> <effectiveTime value="196196580966" /> <value unit="" xsi:type="PQ" value="< 15" /> <referenceRange> <observationRange> <text>0-25</text> </observationRange> < /referenceRange> </observation> </component> &lt ;component> <observation moodCode="EVN" classCode=" OBS"> <templateId root="2.16.840.1.937569.10.20.22.4.2& quot; /> <id nullFlavor="NA" /> <code codeSystem="local" code="300.0097" displayName=" LTURBIDITY" /> <statusCode code="completed" /> <effectiveTime value="714890005203" /> < value unit="" xsi:type="PQ" value="< 20" /& gt; <referenceRange> <observationRange> & lt;text>0-20</text> </observationRange> </ referenceRange> </observation> </component> </ organizer> </entry> <entry> <organizer moodCode="EVN " classCode="BATTERY"> <templateId root=" 2.16.840.1.944563.10.20.22.4.1" /> <id nullFlavor="NA&quot ; /> <code codeSystem="local" code="LMAG" displayName="L200.2000" /> <statusCode code="completed " /> <component> <observation moodCode="EVN& quot; classCode="OBS"> <templateId root=" 2.16.840.1.365617.10.20.22.4.2" /> <id nullFlavor="NA& quot; /> <code codeSystem="local" code="300.2350& quot; displayName="MAG - Magnesium" /> <statusCode code ="completed" /> <effectiveTime value="001349924332 " /> <value unit="MG/DL" xsi:type="PQ" value="1.9" /> <referenceRange> < observationRange> <text>1.6-2.3</text> </ observationRange> </referenceRange> </observation&gt ; </component> </organizer> </entry> <entry> <organizer moodCode="EVN" classCode="BATTERY"> <templateId root="2.16.840.1.082347.10.20.22.4.1" /> < id nullFlavor="NA" /> <code codeSystem="local" code="LCBCMD" displayName="L100.0075" /> < statusCode code="completed" /> <component> < observation moodCode="EVN" classCode="OBS"> < templateId root="2.16.840.1.465216.10.20.22.4.2" /> <id nullFlavor="NA" /> <code codeSystem="local" code="100.0150" displayName="WBC - WHITE BLOOD COUNT" /> <statusCode code="completed" /> < effectiveTime value="708784978545" /> <value unit=&quot ;T/MM3" xsi:type="PQ" value="10.2" /> < referenceRange> <observationRange> <text> 4.5-11.0</text> </observationRange> </ referenceRange> </observation> </component> < component> <observation moodCode="EVN" classCode=" OBS"> <templateId root="2.16.840.1.212073.10.20.22.4.2& quot; /> <id nullFlavor="NA" /> <code codeSystem="local" code="100.0250" displayName="RED BLOOD COUNT" /> <statusCode code="completed" /&gt ; <effectiveTime value="542688271625" /> < value unit="M/MM3" xsi:type="PQ" value="3.98" /&gt ; <interpretationCode codeSystem="local" code="*&quot ; /> <referenceRange> <observationRange> & lt;text>4.00-5.20</text> </observationRange> </referenceRange> </observation> </component>< component> <observation moodCode="EVN" classCode=" OBS"> <templateId root="2.16.840.1.074358.10.20.22.4.2" /> <id nullFlavor="NA" /> <code codeSystem="local" code="100.0300" displayName="HGB - HEMOGLOBIN" /> <statusCode code="completed" /> <effectiveTime value="045101763669" /> <value unit="GM/DL"xsi:type="PQ" value="11.8" /> <interpretationCode codeSystem="local" code="*" /&gt ; <referenceRange> <observationRange> <text>12-16</text> </observationRange> </referenceRange> </observation> </component> <component> <observation moodCode="EVN" classCode= "OBS"> <templateId root=" 2.16.840.1.801481.10.20.22.4.2" /> <id nullFlavor="NA& quot; /> <code codeSystem="local" code="100.0400" displayName="HCT - HEMATOCRIT" /> <statusCode code=& quot;completed" /> <effectiveTime value="171020493731& quot; /> <value unit="%" xsi:type="PQ&quot ; value="36.5" /> <referenceRange> < observationRange> <text>36-46</text> </ observationRange> </referenceRange> </observation&gt ; </component> <component> <observation moodCode ="EVN" classCode="OBS"> <templateId root=& quot;2.16.840.1.751467.10..22.4.2" /> <id nullFlavor=&quot ;NA" /> <code codeSystem="local" code=" 100.0550" displayName="MEAN CORPUSCULAR VOLUME" /> & lt;statusCode code="completed" /> <effectiveTime value= "990320177101" /> <value unit="UM3" xsi:type= "PQ" value="91.7" /> <referenceRange> <observationRange> <text>80-100</text> </observationRange> </referenceRange> </ observation> </component> <component> < observation moodCode="EVN" classCode="OBS"> < templateId root="2.16.840.1.002478.10..22.4.2" /> < id nullFlavor="NA" /> <codecodeSystem="local&quot ; code="100.0600" displayName="MEAN CORPUSCULAR HGB" /> <statusCode code="completed" /> < effectiveTime value="763004527104" /> <value unit=&quot ;UUG" xsi:type="PQ" value="29.6" /> < referenceRange> <observationRange> <text> 26-34</text> </observationRange> </ referenceRange> </observation> </component> < component> <observation moodCode="EVN" classCode=" OBS"> <templateId root="2.16.840.1.906129.10.20.22.4.2& quot; /> <id nullFlavor="NA" /> <code codeSystem="local" code="100.0650" displayName="MEAN CORPUSCULAR HGB CONC([facility]"/> <statusCode code=" completed" /> <effectiveTime value="838335644715" /> <value unit="GM/DL" xsi:type="PQ" value=& quot;32.3" /> <referenceRange> < observationRange><text>31-37</text> </ observationRange> </referenceRange> </observation&gt ; </component> <component> <observation moodCode ="EVN" classCode="OBS"> <templateId root=& quot;2.16.840.1.522099.10.20.22.4.2" /> <id nullFlavor=&quot ;NA" /> <code codeSystem="local" code=" 100.0750" displayName="RDW STANDARD DEVIATION" /> &lt ;statusCode code="completed" /> <effectiveTime value=& quot;628802113108" /> <value unit="FL" xsi:type=& quot;PQ" value="54.7" /> <interpretationCode codeSystem="local" code="*" /> <referenceRange&gt ; <observationRange> <text>36.9-50.2</ text> </observationRange> </referenceRange> </observation> </component> <component> <observation moodCode="EVN" classCode="OBS"> <templateId root="2.16.840.1.098801.10.20.22.4.2" /> <id nullFlavor="NA" /> <code codeSystem=" local" code="100.0850" displayName="PLT - PLATELET COUNT& quot; /> <statusCode code="completed" /> & lt;effectiveTime value="210753128784" /> <value unit=& quot;T/MM3" xsi:type="PQ" value="211" /> < interpretationCode codeSystem="local" code="" /> <referenceRange> <observationRange> &lt ;text>130-400</text> </observationRange> </ referenceRange> </observation> </component> < component> <observation moodCode="EVN" classCode=" OBS"> <templateId root="2.16.840.1.612045.10.20.22.4.2& quot; /><id nullFlavor="NA" /> <code codeSystem=& quot;local" code="100.0950" displayName="MEAN PLATELET VOLUME" /> <statusCode code="completed" /> <effectiveTime value="725930630651" /> < valueunit="UM3" xsi:type="PQ" value="10.1" /> <referenceRange> <observationRange> <text>9.4-12.4</text> </observationRange> </referenceRange> </observation> </component> <component> <observation moodCode="EVN" classCode ="OBS"> <templateId root=" 2.16.840.1.023286.10.20.22.4.2" /> <id nullFlavor="NA& quot; /> <code codeSystem="local" code="100.1650& quot; displayName="NEUTROPHILS % (MANUAL)" /> < statusCode code="completed" /> <effectiveTime value=& quot;540964430510" /> <value unit="%" xsi: type="PQ" value="87.0" /> < interpretationCode codeSystem="local" code="*" /> <referenceRange> <observationRange> < text>33-66</text> </observationRange> </ referenceRange> </observation> </component> < component> <observation moodCode="EVN" classCode=" OBS"> <templateId root="2.16.840.1.603554.10.20.22.4.2& quot; /> <id nullFlavor="NA" /> <code codeSystem="local" code="100.1750" displayName="BAND NEUTROPHILS %" /> <statusCode code="completed& quot; /> <effectiveTime value="009944910295" /> <value unit="%" xsi:type="PQ" value=" 2.0" /> <referenceRange> <observationRange& gt; <text>0-6</text> </observationRange& gt; </referenceRange> </observation> </ component> <component> <observation moodCode="EVN& quot; classCode="OBS"> <templateId root=" 2.16.840.1.170789.10.20.22.4.2" /> <id nullFlavor="NA& quot; /> <code codeSystem="local" code="100.1850& quot; displayName="LYMPHOCYTES % (MANUAL)" /> < statusCode code="completed" /> <effectiveTime value=& quot;834643777509" /> <value unit="%" xsi: type="PQ" value="3.0" /> <interpretationCode codeSystem="local" code="*" /> < referenceRange> <observationRange> <text>23-45</ text> </observationRange> </referenceRange> </observation> </component> <component> <observation moodCode="EVN" classCode="OBS">< templateId root="2.16.840.1.253596.10.20.22.4.2" /> < id nullFlavor="NA" /> <code codeSystem="local&quot ; code="100.1950" displayName="MONOCYTES % (MANUAL)&quot ; /> <statusCode code="completed" /> < effectiveTime value="276782939894" /> <value unit=&quot ;%" xsi:type="PQ" value="6.0" /> & lt;referenceRange> <observationRange> <text>0- 9.0</text> </observationRange> </ referenceRange> </observation> </component>< component> <observation moodCode="EVN" classCode=" OBS"> <templateId root="2.16.840.1.086883.10.20.22.4.2" /> <id nullFlavor="NA" /> <code codeSystem="local" code="100.2150" displayName=" BASOPHILS % (MANUAL)" /> <statusCode code=" completed" /> <effectiveTime value="822822938064" /> <value unit="%" xsi:type="PQ" value="1.0" /> <referenceRange> < observationRange> <text>0-2</text> </ observationRange> </referenceRange> </observation&gt ; </component> <component> <observation moodCode=& quot;EVN" classCode="OBS"> <templateId root=" [id number]" /> <id nullFlavor="NA& quot; /> <code codeSystem="local" code="100.2400& quot; displayName="PROLYMPHOCYTES %" /> < statusCode code="completed" /> <effectiveTime value=& quot;[id number]" /> <value unit="T/MM3" xsi:type ="PQ" value="8.9" /> <interpretationCode codeSystem="local" code="*" /> < referenceRange> <observationRange> <text> 1.8-7.7</text> </observationRange> </ referenceRange> </observation> </component> < component> <observation moodCode="EVN" classCode=" OBS"> <templateId root="2.16.840.1.010740.10.20.22.4.2& quot; /> <id nullFlavor="NA" /> <code codeSystem="local" code="100.2450" displayName="PLASMA CELLS %" /> <statusCode code="completed" / > <effectiveTime value="700806192124" /> & lt;value unit="T/MM3" xsi:type="PQ" value="0.2" /& gt; <referenceRange> <observationRange> <text>NRG</text> </observationRange> </referenceRange> </observation> </component> <component> <observation moodCode="EVN" classCode=" OBS"> <templateId root="2.16.840.1.361065.10..22.4.2& quot; /> <id nullFlavor="NA" /> <code codeSystem="local" code="100.2650" displayName=" NEUTROPHILS # (MANUAL)" /> <statusCode code="completed& quot; /> <effectiveTime value="775972727537" /> <value unit="T/MM3" xsi:type="PQ" value="0.6& quot; /> <referenceRange> <observationRange> <text>0-0.8</text> </observationRange&gt ; </referenceRange> </observation> </ component> <component> <observation moodCode="EVN& quot; classCode="OBS"> <templateId root=" 2.16.840.1.418892.10.20.22.4.2" /> <id nullFlavor="NA& quot; /><code codeSystem="local" code="100.2850" displayName="BASOPHILS # (MANUAL)" /> <statusCode code= "completed" /> <effectiveTime value="430367269374& quot; /> <value unit="T/MM3" xsi:type="PQ" value="0.1" /> <referenceRange> < observationRange> <text>0-0.2</text> </ observationRange> </referenceRange> </observation&gt ; </component> <component> <observation moodCode ="EVN" classCode="OBS"> <templateId root=& quot;2.16.840.1.903419.10.20.22.4.2" /> <id nullFlavor=&quot ;NA" /> <code codeSystem="local" code=" 100.4750" displayName="MACROCYTOSIS" /> <statusCode code="completed" /> <effectiveTime value=" 533567538046" /> <value unit="" xsi:type="PQ& quot; value="1+" /> <referenceRange> < observationRange> <text>NRG</text> </ observationRange> </referenceRange> </observation&gt ; </component> <component> <observation moodCode ="EVN" classCode="OBS"> <templateId root=& quot;2.16.840.1.274468.10.20.22.4.2" /> <id nullFlavor=&quot ;NA" /> <code codeSystem="local" code=" 100.4850" displayName="POLYCHROMASIA" /> < statusCode code="completed" /> <effectiveTime value=& quot;389820759202" /> <value unit="" xsi:type="PQ& quot; value="1+" /> <referenceRange> < observationRange> <text>NRG</text> </ observationRange> </referenceRange> </observation&gt ; </component> <component> <observation moodCode ="EVN" classCode="OBS"> <templateId root=& quot;2.16.840.1.417940.10.20.22.4.2" /> <id nullFlavor=&quot ;NA" /> <code codeSystem="local" code=" 100.5200" displayName="SPHEROCYTES" /> < statusCode code="completed" /> <effectiveTime value=& quot;597814006669" /> <value unit="" xsi:type=& quot;PQ" value="1+" /> <referenceRange>< observationRange> <text>NRG</text> </ observationRange> </referenceRange> </observation&gt ; </component> <component> <observation moodCode ="EVN" classCode="OBS"> <templateId root=& quot;2.16.840.1.134319.10..22.4.2" /> <id nullFlavor=&quot ;NA" /> <code codeSystem="local" code=" 100.5650" displayName="PAPPENHEIMER BODIES" /> < statusCode code="completed" /> <effectiveTime value=& quot;557334730885" /> <value unit="" xsi:type=& quot;PQ" value="1+" /> <referenceRange> <observationRange> <text>NRG</text> </observationRange> </referenceRange> </ observation> </component> <component><observation moodCode="EVN" classCode="OBS"> <templateId root="2.16.840.1.594963.10..22.4.2" /> <id nullFlavor ="NA" /> <code codeSystem="local" code=" 100.1875" displayName="Reactive Lymphocytes %" /> <statusCode code="completed" /> < effectiveTime value="755717651306" /> <value unit=&quot ;%" xsi:type="PQ" value="1.0" /> & lt;interpretationCode codeSystem="local" code="*" /> <referenceRange> <observationRange> < text>0-0</text> </observationRange> </ referenceRange> </observation> </component> < component> <observation moodCode="EVN" classCode=" OBS"> <templateId root="2.16.840.1.237551.10.20.22.4.2& quot; /> <id nullFlavor="NA" /> <code codeSystem="local" code="100.2550" displayName=" Lymphocytes # (Manual)" /> <statusCode code="completed& quot; /> <effectiveTime value="633945455560" /> <value unit="T/MM3" xsi:type="PQ" value="0.3& quot; /> <interpretationCode codeSystem="local" code=& quot;*" /> <referenceRange> < observationRange> <text>1-4.8</text> < /observationRange> </referenceRange> </observation& gt; </component> <component> <observation moodCode="EVN" classCode="OBS"> <templateId root="2.16.840.1.602006.10.20.22.4.2" /> <id nullFlavor ="NA" /> <code codeSystem="local" code=" 100.2575" displayName="Reactive Lymphocytes #" /> &lt ;statusCode code="completed" /> <effectiveTime value=& quot;407455865254" /> <value unit="T/MM3" xsi:type ="PQ" value="0.1" /> <interpretationCode codeSystem="local" code="*" /> < referenceRange> <observationRange> <text> 0-0</text> </observationRange> </referenceRange&gt ; </observation> </component> <component> <observation moodCode="EVN" classCode="OBS"> <templateId root="2.16.840.1.346391.10.20.22.4.2" /> < id nullFlavor="NA" /> <code codeSystem="local&quot ; code="100.4565" displayName="LRBCMOR" /> < statusCode code="completed" /> <effectiveTime value=& quot;539695708532" /> <value unit="" xsi:type=& quot;PQ" value="Abnormal" /> <referenceRange> <observationRange> <text>NRG</text> </observationRange> </referenceRange> </ observation> </component> </organizer> </entry> & lt;entry> <organizer moodCode="EVN" classCode="BATTERY& quot;> <templateId root="2.16.840.1.589446.10.20.22.4.1" /& gt; <id nullFlavor="NA" /> <code codeSystem=" local" code="LBGM" displayName="L900.0530" /> & lt;statusCode code="completed" /> <component> &lt ;observation moodCode="EVN" classCode="OBS"> < templateId root="2.16.840.1.676453.10.20.22.4.2" /> < id nullFlavor="NA" /> <code codeSystem="local&quot ; code="850.0100" displayName="Glucometer" /> & lt;statusCode code="completed" /> <effectiveTime value= "758655721583" /> <value unit="mg/dL" xsi: type="PQ" value="262" /> <referenceRange> <observationRange> <text>65-110</text&gt ; </observationRange> </referenceRange> </ observation> </component> </organizer></entry> &lt ;entry> <organizer moodCode="EVN" classCode="BATTERY& quot;> <templateId root="2.16.840.1.420867.10.20.22.4.1" /& gt; <id nullFlavor="NA" /> <code codeSystem=" local" code="LCBC" displayName="L100.0050" /> & lt;statusCode code="completed" /> <component> &lt ;observation moodCode="EVN" classCode="OBS"> &lt ;templateId root="2.16.840.1.784958.10.20.22.4.2" /> < id nullFlavor="NA" /> <code codeSystem="local&quot ; code="100.0150" displayName="WBC - WHITE BLOOD COUNT" /&gt ; <statusCode code="completed" /> < effectiveTime value="453888890229" /> <value unit=&quot ;T/MM3" xsi:type="PQ" value="10.7" /> < referenceRange> <observationRange> <text> 4.5-11.0</text> </observationRange> </referenceRange& gt; </observation> </component> <component> <observation moodCode="EVN" classCode="OBS"> <templateId root="2.16.840.1.736913.10.20.22.4.2" /> <id nullFlavor="NA" /> <code codeSystem=" local" code="100.0250" displayName="RED BLOOD COUNT" /& gt; <statusCode code="completed" /> < effectiveTime value="769417322555" /> <value unit=&quot ;M/MM3" xsi:type="PQ" value="4.11" /> < referenceRange> <observationRange> <text> 4.00-5.20</text> </observationRange> </ referenceRange> </observation> </component> < component> <observation moodCode="EVN" classCode=" OBS"> <templateId root="2.16.840.1.758182.10.20.22.4.2& quot; /> <id nullFlavor="NA" /> <code codeSystem="local" code="100.0300" displayName="HGB - HEMOGLOBIN" /> <statusCode code="completed" /> <effectiveTime value="650629690664" /> < value unit="GM/DL" xsi:type="PQ" value="12.1" /&gt ; <referenceRange> <observationRange> < text>12-16</text> </observationRange> </ referenceRange> </observation> </component> < component> <observation moodCode="EVN" classCode=" OBS"> <templateId root="2.16.840.1.717211.10.20.22.4.2& quot; /> <id nullFlavor="NA" /> <code codeSystem="local" code="100.0400" displayName="HCT - HEMATOCRIT" /> <statusCode code="completed" /> <effectiveTime value="628841053931" /> < value unit="%" xsi:type="PQ" value="37.1" /> <referenceRange> <observationRange>< text>36-46</text> </observationRange> </ referenceRange> </observation> </component> < component> <observation moodCode="EVN" classCode=" OBS"> <templateId root="2.16.840.1.659648.10.20.22.4.2& quot; /> <id nullFlavor="NA" /> <code codeSystem="local" code="100.0550" displayName="MEAN CORPUSCULAR VOLUME" /> <statusCode code="completed&quot ; /> <effectiveTime value="549145891475" /> <value unit="UM3" xsi:type="PQ" value="90.3" /> <referenceRange> <observationRange> <text>80-100</text> </observationRange> </referenceRange> </observation> </component> <component> <observation moodCode="EVN" classCode=& quot;OBS"> <templateId root=" 2.16.840.1.651122.10..22.4.2" /> <id nullFlavor="NA& quot; /> <code codeSystem="local" code="100.0600& quot; displayName="MEAN CORPUSCULAR HGB" /> <statusCode code=& quot;completed" /> <effectiveTime value="982796772748& quot; /> <value unit="UUG" xsi:type="PQ" value="29.4"/> <referenceRange> < observationRange> <text>26-34</text> < /observationRange> </referenceRange> </observation& gt; </component> <component> <observation moodCode="EVN" classCode="OBS"> <templateId root="2.16.840.1.047364.10..22.4.2" /> <id nullFlavor ="NA" /> <code codeSystem="local" code=" 100.0650" displayName="MEAN CORPUSCULAR HGB CONC([facility]" /> & lt;statusCode code="completed" /> <effectiveTime value= "321876032947" /> <value unit="GM/DL" xsi: type="PQ" value="32.6" /> <referenceRange&gt ; <observationRange> <text>31-37</text&gt ; </observationRange> </referenceRange> & lt;/observation> </component> <component> < observation moodCode="EVN" classCode="OBS"> < templateId root="2.16.840.1.145823.10.20.22.4.2" /> < id nullFlavor="NA" /> <code codeSystem="local&quot ; code="100.0750" displayName="RDW STANDARD DEVIATION" /&gt ; <statusCode code="completed" /> < effectiveTime value="781661433365" /> <value unit=&quot ;FL" xsi:type="PQ" value="53.9" /> < interpretationCode codeSystem="local" code="*" /> <referenceRange> <observationRange> < text>36.9-50.2</text> </observationRange> &lt ;/referenceRange> </observation> </component> < component> <observation moodCode="EVN" classCode=" OBS"> <templateId root="2.16.840.1.626220.10.20.22.4.2& quot; /> <id nullFlavor="NA" /> <code codeSystem="local" code="100.0850" displayName="PLT - PLATELET COUNT" /> <statusCode code="completed" /& gt; <effectiveTime value="773451597312" /> &lt ;value unit="T/MM3" xsi:type="PQ" value="222" /&gt ; <referenceRange> <observationRange> <text>130-400</text> </observationRange> &lt ;/referenceRange> </observation> </component> & lt;component> <observation moodCode="EVN" classCode=&quot ;OBS"> <templateId root="2.16.840.1.018188.10..22.4.2 " /> <id nullFlavor="NA" /> <code codeSystem="local" code="100.0950" displayName="MEAN PLATELET VOLUME" /> <statusCode code="completed" / > <effectiveTime value="114693275799" /> & lt;value unit="UM3" xsi:type="PQ" value="10.5" /& gt; <referenceRange> <observationRange> <text>9.4-12.4</text></observationRange> </ referenceRange> </observation> </component> </ organizer> </entry> <entry> <organizer moodCode="EVN " classCode="BATTERY"> <templateId root=" 2.16.840.1.479228.10.20.22.4.1" /> <id nullFlavor="NA&quot ; /> <code codeSystem="local" code="LDIFFM" displayName="L100.0105" /> <statusCode code="completed " /> <component> <observation moodCode="EVN& quot; classCode="OBS"> <templateId root=" 2.16.840.1.515801.10.20.22.4.2" /> <id nullFlavor="NA& quot; /> <code codeSystem="local" code="100.1650& quot; displayName="NEUTROPHILS % (MANUAL)" /> < statusCode code="completed" /> <effectiveTime value=& quot;115481062822" /> <value unit="%" xsi: type="PQ" value="74.0" /> < interpretationCode codeSystem="local" code="*" /> <referenceRange> <observationRange> < text>33-66</text> </observationRange> </ referenceRange> </observation> </component> < component> <observation moodCode="EVN" classCode=" OBS"> <templateId root="2.16.840.1.629939.10.20.22.4.2& quot; /> <id nullFlavor="NA" /> <code codeSystem="local" code="100.1750" displayName="BAND NEUTROPHILS %" /> <statusCode code="completed& quot; /> <effectiveTime value="295079598806" /> <value unit="%" xsi:type="PQ" value=" 1.0" /> <referenceRange> <observationRange& gt; <text>0-6</text> </observationRange& gt; </referenceRange> </observation> </ component> <component> <observation moodCode="EVN& quot; classCode="OBS"> <templateId root=" 2.16.840.1.394985.10.20.22.4.2" /> <id nullFlavor="NA& quot; /> <code codeSystem="local" code="100.1850& quot; displayName="LYMPHOCYTES % (MANUAL)" /> < statusCode code="completed" /> <effectiveTime value=& quot;288060862622" /> <value unit="%" xsi: type="PQ" value="17.0" /> < interpretationCode codeSystem="local" code="*" /> <referenceRange> <observationRange> <text& gt;23-45</text> </observationRange> </ referenceRange> </observation> </component> < component> <observation moodCode="EVN" classCode=" OBS"> <templateId root="2.16.840.1.920434.10.20.22.4.2&quot ; /> <id nullFlavor="NA" /> <code codeSystem="local" code="100.1950" displayName=" MONOCYTES % (MANUAL)" /> <statusCode code=" completed" /> <effectiveTime value="566153367537" /> <value unit="%" xsi:type="PQ" value="7.0" /> <referenceRange> < observationRange> <text>0-9.0</text> < /observationRange> </referenceRange> </observation& gt; </component> <component> <observation moodCode="EVN" classCode="OBS"> <templateId root="2.16.840.1.041437.10.20.22.4.2" /> <id nullFlavor ="NA" /> <code codeSystem="local" code=" 100.2250" displayName="MYELOCYTES %" /> < statusCode code="completed" /> <effectiveTime value=& quot;464015222340" /> <value unit="%" xsi: type="PQ" value="1.0" /> <interpretationCode codeSystem="local" code="*" /> < referenceRange> <observationRange> <text> 0-0</text> </observationRange> </referenceRange&gt ; </observation> </component> <component> <observation moodCode="EVN" classCode="OBS"> <templateId root="2.16.840.1.205367.10.20.22.4.2" /> <id nullFlavor="NA" /> <code codeSystem=" local" code="100.2400" displayName="PROLYMPHOCYTES % " /> <statusCode code="completed" /> & lt;effectiveTime value="621514614997" /> <value unit=& quot;T/MM3" xsi:type="PQ" value="7.9" /> & lt;interpretationCode codeSystem="local" code="*" /> <referenceRange> <observationRange> < text>1.8-7.7</text> </observationRange> </ referenceRange> </observation> </component> < component> <observation moodCode="EVN" classCode=" OBS"> <templateId root="2.16.840.1.846444.10.20.22.4.2& quot; /> <id nullFlavor="NA" /> <code codeSystem="local" code="100.2450" displayName="PLASMA CELLS %" /> <statusCode code="completed" / > <effectiveTime value="111469761640" /> & lt;value unit="T/MM3" xsi:type="PQ" value="0.1" /& gt; <referenceRange> <observationRange> &lt ;text>NRG</text> </observationRange> </ referenceRange> </observation> </component> < component> <observation moodCode="EVN" classCode=" OBS"> <templateId root="2.16.840.1.683132.10.20.22.4.2& quot; /> <id nullFlavor="NA" /> <code codeSystem="local" code="100.2650" displayName=" NEUTROPHILS # (MANUAL)" /> <statusCode code="completed& quot; /> <effectiveTime value="280816368529" /> <value unit="T/MM3" xsi:type="PQ" value="0.7& quot; /> <referenceRange> <observationRange> <text>0-0.8</text> </observationRange&gt ; </referenceRange> </observation> </component& gt; <component> <observation moodCode="EVN" classCode="OBS"> <templateId root=" 2.16.840.1.978002.10.20.22.4.2" /> <id nullFlavor="NA& quot; /> <code codeSystem="local" code="100.2950& quot; displayName="MYELOCYTES #" /> <statusCode code=& quot;completed" /> <effectiveTime value="924947904220& quot; /> <value unit="T/MM3" xsi:type="PQ" value="0.1" /> <referenceRange> < observationRange> <text>NRG</text> </ observationRange> </referenceRange> </observation&gt ; </component> <component> <observation moodCode ="EVN" classCode="OBS"> <templateId root=& quot;2.16.840.1.104372.10.20.22.4.2" /> <id nullFlavor=&quot ;NA" /> <code codeSystem="local" code=" 100.4850" displayName="POLYCHROMASIA" /> < statusCode code="completed" /> <effectiveTime value=& quot;641217836131" /> <value unit="" xsi:type="PQ&quot ; value="1+" /> <referenceRange> < observationRange> <text>NRG</text> </ observationRange> </referenceRange> </observation&gt ; </component> <component> <observation moodCode ="EVN" classCode="OBS"> <templateId root=& quot;2.16.840.1.648105.10.20.22.4.2" /> <id nullFlavor=&quot ;NA" /> <code codeSystem="local" code=" 100.2550" displayName="Lymphocytes # (Manual)" /> &lt ;statusCode code="completed" /> <effectiveTime value=& quot;844729282393" /> <value unit="T/MM3" xsi:type ="PQ" value="1.8" /> <referenceRange> <observationRange> <text>1-4.8</text> </observationRange> </referenceRange> </ observation> </component> <component> < observation moodCode="EVN" classCode="OBS"> < templateId root="2.16.840.1.778857.10..22.4.2" /> < id nullFlavor="NA" /> <code codeSystem="local&quot ; code="100.4565"displayName="LRBCMOR" /> < statusCode code="completed" /> <effectiveTime value=" 945655108036" /> <value unit="" xsi:type="PQ& quot; value="Abnormal" /> <referenceRange> <observationRange> <text>NRG</text> </observationRange> </referenceRange> </observation& gt; </component> </organizer> </entry> <entry&gt ; <organizer moodCode="EVN" classCode="BATTERY"> <templateId root="2.16.840.1.878735.10.20.22.4.1" /> & lt;id nullFlavor="NA" /> <code codeSystem="local&quot ; code="LCMP" displayName="L200.0020" /> < statusCode code="completed" /> <component> < observation moodCode="EVN" classCode="OBS"> < templateId root="2.16.840.1.612879.10.20.22.4.2" /> < id nullFlavor="NA"/> <code codeSystem="local&quot ; code="300.0400" displayName="FUNGAL CULTURE." /> <statusCode code="completed" /> <effectiveTime value="698726874664" /> <value unit="MG/DL" xsi:type="PQ" value="1.0" /> <referenceRange& gt; <observationRange> <text>0.7-1.2</ text> </observationRange> </referenceRange> </observation> </component> <component>< observation moodCode="EVN" classCode="OBS"> < templateId root="2.16.840.1.845466.10.20.22.4.2" /> < id nullFlavor="NA" /> <code codeSystem="local" code ="300.0450" displayName="FUNGAL CULTURE, BLOOD." /> <statusCode code="completed" /> <effectiveTime value="555055700900" /> <value unit="RATIO" xsi:type="PQ" value="42" /> < interpretationCode codeSystem="local" code="*" /> <referenceRange> <observationRange> < text>6-26</text> </observationRange> </ referenceRange> </observation> </component> < component> <observation moodCode="EVN" classCode=" OBS"> <templateId root="2.16.840.1.773848.10.20.22.4.2& quot; /> <id nullFlavor="NA" /> <code codeSystem="local" code="300.0100" displayName="NA - Sodium" /> <statusCode code="completed" /> <effectiveTime value="274950088073"/> <value unit="MEQ/L" xsi:type="PQ" value="135" /> <referenceRange> <observationRange> < text>134-144</text> </observationRange> </ referenceRange> </observation> </component> < component> <observation moodCode="EVN" classCode=" OBS"> <templateId root="2.16.840.1.811970.10.20.22.4.2& quot; /> <id nullFlavor="NA" /> <code codeSystem="local" code="300.0150" displayName=" Potassium" /> <statusCode code="completed" /> <effectiveTime value="734068239055" /> < value unit="MEQ/L" xsi:type="PQ" value="4.9" /&gt ; <referenceRange> <observationRange> <text>3.6-5</text> </observationRange> </ referenceRange> </observation> </component> < component> <observation moodCode="EVN" classCode=" OBS"> <templateId root="2.16.840.1.937419.10.20.22.4.2& quot; /><id nullFlavor="NA" /> <code codeSystem=& quot;local" code="300.0200" displayName="Chloride" /&gt ; <statusCode code="completed"/> < effectiveTime value="013375229037" /> <value unit=&quot ;MEQ/L" xsi:type="PQ" value="98" /> < referenceRange> <observationRange> <text>98-107& lt;/text> </observationRange> </referenceRange& gt; </observation> </component> <component> <observation moodCode="EVN" classCode="OBS"> <templateId root="2.16.840.1.320412.10.20.22.4.2" /> & lt;id nullFlavor="NA" /> <code codeSystem="local& quot; code="300.0250" displayName="CO2 - Carbon Dioxide" /& gt; <statusCode code="completed" /> < effectiveTime value="781390751041" /> <value unit=&quot ;MEQ/L" xsi:type="PQ" value="30" /> < referenceRange> <observationRange> <text> 22-30</text> </observationRange> </ referenceRange> </observation> </component> < component> <observation moodCode="EVN" classCode=" OBS"> <templateId root="2.16.840.1.544909.10.20.22.4.2& quot; /> <id nullFlavor="NA" /> <code codeSystem="local" code="300.0300" displayName="Anion Gap" /> <statusCode code="completed" /> <effectiveTime value="094380537749" /> <value unit="MEQ/L" xsi:type="PQ" value="7" /> <referenceRange> <observationRange> < text>5-15</text> </observationRange> </ referenceRange> </observation> </component> < component> <observation moodCode="EVN" classCode=" OBS"> <templateId root="2.16.840.1.115272.10.20.22.4.2& quot; /> <id nullFlavor="NA" /> <code codeSystem="local" code="300.0350" displayName="BUN - Blood Urea Nitrogen" /> <statusCode code="completed& quot; /> <effectiveTime value="503826247959" /> <value unit="MG/DL" xsi:type="PQ" value="42.0& quot; /> <interpretationCode codeSystem="local" code=& quot;*" /> <referenceRange> < observationRange> <text>7-17</text> </ observationRange> </referenceRange> </observation> </component> <component> <observation moodCode=" EVN" classCode="OBS"> <templateId root=" 2.16.840.1.588206.10.20.22.4.2" /> <id nullFlavor="NA& quot; /> <code codeSystem="local" code="300.0410& quot; displayName="Glomerular Filtration Rate" /> < statusCode code="completed" /> <effectiveTime value=& quot;054112940873" /> <value unit="" xsi:type=& quot;PQ" value="55"/> <referenceRange> <observationRange> <text>NRG</text> </observationRange> </referenceRange> </ observation> </component> <component> < observation moodCode="EVN" classCode="OBS"> < templateId root="2.16.840.1.336475.10.20.22.4.2" /> < id nullFlavor="NA" /> <code codeSystem="local&quot ; code="300.0500" displayName="Glucose" /> < statusCode code="completed" /> <effectiveTime value=& quot;199820283259" /> <value unit="MG/DL" xsi:type ="PQ" value="234" /> <interpretationCode codeSystem="local" code="*" /> < referenceRange> <observationRange> <text> 65-110</text> </observationRange> </ referenceRange> </observation> </component> < component> <observation moodCode="EVN" classCode=" OBS"> <templateId root="2.16.840.1.669336.10.20.22.4.2& quot; /> <id nullFlavor="NA" /> <code codeSystem="local" code="300.2000" displayName=" Osmolality,Calculated" /> <statusCode code="completed& quot;/> <effectiveTime value="981343848821" /> <value unit="MOSM/KG" xsi:type="PQ" value="279& quot; /> <referenceRange> <observationRange> <text>261-280</text> </observationRange> </referenceRange> </observation> </component > <component> <observation moodCode="EVN" classCode="OBS"> <templateId root=" 2.16.840.1.712039.10.20.22.4.2" /> <id nullFlavor="NA& quot; /> <code codeSystem="local" code="300.2200& quot; displayName="Calcium" /> <statusCode code=" completed" /> <effectiveTime value="779421570027" /> <value unit="MG/DL" xsi:type="PQ" value=& quot;8.8" /> <referenceRange> < observationRange> <text>8.4-10.2</text> & lt;/observationRange> </referenceRange> </observation&gt ; </component> <component> <observation moodCode ="EVN" classCode="OBS"> <templateId root=& quot;[id number]" /> <id nullFlavor=&quot ;NA" /> <code codeSystem="local" code=" 300.1152" displayName="Bilirubin,Total" /> < statusCode code="completed" /> <effectiveTime value=& quot;[id number]" /> <value unit="MG/DL" xsi:type ="PQ" value="0.40" /> <referenceRange> <observationRange> <text>0.20-1.30</text&gt ; </observationRange> </referenceRange> & lt;/observation> </component> <component> < observation moodCode="EVN" classCode="OBS"> < templateId root="[id number]" /> < id nullFlavor="NA" /> <code codeSystem="local" code="300.2975" displayName="Alkaline Phosphatase" /> <statusCode code="completed" /> < effectiveTime value="783898809111" /> <value unit=&quot ;U/L" xsi:type="PQ" value="51" /> < referenceRange> <observationRange> <text>38- 126</text> </observationRange> </ referenceRange> </observation> </component> < component> <observation moodCode="EVN" classCode=" OBS"> <templateId root="2.16.840.1.072415.10.20.22.4.2& quot; /> <id nullFlavor="NA" /> <code codeSystem="local" code="300.3050" displayName="AST - Aspartate Amino Transfer" /> <statusCode code=" completed" /> <effectiveTime value="892777987266" /> <value unit="U/L" xsi:type="PQ" value=& quot;22" /> <referenceRange> < observationRange> <text>14-36</text> </ observationRange> </referenceRange> </observation&gt ; </component> <component> <observation moodCode ="EVN" classCode="OBS"> <templateId root=& quot;2.16.840.1.959148.10.20.22.4.2" /> <id nullFlavor=&quot ;NA" /> <code codeSystem="local" code=" 300.3100" displayName="ALT" /> <statusCode code=" completed" /> <effectiveTime value="865232803911" /> <value unit="U/L" xsi:type="PQ" value=& quot;24" /> <referenceRange> < observationRange> <text>9-52</text> </ observationRange> </referenceRange> </observation&gt ; </component> <component> <observation moodCode ="EVN" classCode="OBS"> <templateId root=& quot;2.16.840.1.670477.10.20.22.4.2" /> <id nullFlavor=&quot ;NA" /> <code codeSystem="local" code=" 300.3110" displayName="TP - Total Protein" /> < statusCode code="completed" /> <effectiveTime value=& quot;314770579475" /> <value unit="G/DL" xsi:type=& quot;PQ" value="6.9" /> <referenceRange> <observationRange> <text>6.3-8.2</text> </observationRange> </referenceRange> </ observation> </component> <component> < observation moodCode="EVN" classCode="OBS"> < templateId root="2.16.840.1.251988.10.20.22.4.2" /> < id nullFlavor="NA" /> <code codeSystem="local&quot ; code="300.3120" displayName="Albumin Level" /> <statusCode code="completed" /> <effectiveTime value="752258126897" /> <value unit="G/DL" xsi:type="PQ" value="3.3" /> < interpretationCode codeSystem="local" code="*" /> <referenceRange> <observationRange> <text> 3.5-5.0</text> </observationRange> </ referenceRange> </observation> </component>< component> <observation moodCode="EVN" classCode=" OBS"> <templateId root="2.16.840.1.992261.10.20.22.4.2" /> <id nullFlavor="NA" /> <code codeSystem="local" code="300.3130" displayName=" Globulin" /> <statusCode code="completed" /> <effectiveTime value="128984172997" /> < value unit="G/DL" xsi:type="PQ" value="3.6" /> <referenceRange> <observationRange> <text>2.4-3.6</text> </observationRange> </ referenceRange> </observation> </component> < component> <observation moodCode="EVN" classCode="OBS& quot;> <templateIdroot="2.16.840.1.600032.10.20.22.4.2&quot ; /> <id nullFlavor="NA" /> <code codeSystem="local" code="300.3140" displayName="Albumin /Globulin Ratio" /> <statusCode code="completed" / > <effectiveTime value="636084931139" /> & lt;value unit="RATIO" xsi:type="PQ" value="0.9" /& gt; <interpretationCode codeSystem="local" code="*& quot; /> <referenceRange> <observationRange> <text>1.1-2.2</text> </observationRange> </referenceRange> </observation> </component> <component> <observation moodCode="EVN" classCode="OBS"> <templateId root=" 2.16.840.1.949312.10..22.4.2" /> <id nullFlavor="NA& quot; /> <codecodeSystem="local" code="300.0095& quot; displayName="LICTERUS" /> <statusCode code=" completed" /> <effectiveTime value="077936877921" /> <value unit="" xsi:type="PQ" value="& amp;lt; 2" /> <referenceRange> < observationRange> <text>0-7</text> </ observationRange> </referenceRange> </observation&gt ; </component> <component> <observation moodCode ="EVN" classCode="OBS"> <templateId root=& quot;2.16.840.1.602391.10..22.4.2" /> <id nullFlavor=&quot ;NA" /> <code codeSystem="local" code=" 300.0096" displayName="LHEMOLYSIS" /> <statusCode code="completed" /> <effectiveTime value=" 355782359706" /> <value unit="" xsi:type="PQ" value="57" /> <interpretationCode codeSystem=" local" code="*" /> <referenceRange> & lt;observationRange> <text>0-25</text> & lt;/observationRange> </referenceRange> </ observation> </component> <component> < observation moodCode="EVN" classCode="OBS"> < templateId root="2.16.840.1.620444.10.20.22.4.2" /> < id nullFlavor="NA" /> <code codeSystem="local&quot ; code="300.0097" displayName="LTURBIDITY" /> & lt;statusCode code="completed" /> <effectiveTime value=" 500671768541" /> <value unit="" xsi:type="PQ& quot; value="< 20" /> <referenceRange> <observationRange> <text>0-20</text> </observationRange> </referenceRange> </ observation> </component> </organizer> </entry> & lt;entry> <organizer moodCode="EVN" classCode="BATTERY& quot;> <templateId root="2.16.840.1.844893.10.20.22.4.1" /& gt; <id nullFlavor="NA" /> <code codeSystem=" local" code="LMAG" displayName="L200.2000" /> & lt;statusCode code="completed" /> <component> &lt ;observation moodCode="EVN" classCode="OBS"> &lt ;templateId root="2.16.840.1.939725.10.20.22.4.2" /> < id nullFlavor="NA" /> <code codeSystem="local&quot ; code="300.2350" displayName="MAG - Magnesium" /> <statusCode code="completed" /> <effectiveTime value="546728197544" /> <value unit="MG/DL" xsi:type="PQ" value="1.8" /> <referenceRange& gt; <observationRange> <text>1.6-2.3</ text> </observationRange> </referenceRange> </observation> </component> </organizer> </ entry> <entry> <organizer moodCode="EVN" classCode=& quot;BATTERY"> <templateId root=" 2.16.840.1.615578.10.20.22.4.1" /> <id nullFlavor="NA&quot ; /> <code codeSystem="local" code="LBGM" displayName="L900.0530" /> <statusCode code="completed " /> <component> <observation moodCode="EVN" classCode="OBS"> <templateId root=" 2.16.840.1.675132.10.20.22.4.2" /> <id nullFlavor="NA& quot; /> <code codeSystem="local" code="850.0100&quot ; displayName="Glucometer" /> <statusCode code=" completed" /> <effectiveTime value="718500981560" /> <value unit="mg/dL" xsi:type="PQ" value=& quot;195" /> <referenceRange> < observationRange> <text>65-110</text> </ observationRange> </referenceRange> </observation&gt ; </component> </organizer> </entry> <entry> <organizer moodCode="EVN" classCode="BATTERY"> <templateId root="2.16.840.1.073495.10.20.22.4.1" /> < id nullFlavor="NA" /> <code codeSystem="local" code="LBGM" displayName="L900.0530" /> < statusCode code="completed" /> <component> < observation moodCode="EVN" classCode="OBS"> < templateId root="2.16.840.1.227466.10.20.22.4.2" /> < id nullFlavor="NA" /> <codecodeSystem="local&quot ; code="850.0100" displayName="Glucometer" /> < statusCode code="completed" /> <effectiveTime value=& quot;522241278977" /> <value unit="mg/dL" xsi:type ="PQ" value="233" /> <referenceRange> <observationRange> <text>65-110</text> </observationRange> </referenceRange> < /observation> </component> </organizer> </entry> <entry> <organizer moodCode="EVN" classCode="BATTERY& quot;> <templateId root="2.16.840.1.771786.10.20.22.4.1" /& gt; <id nullFlavor="NA" /> <code codeSystem=" local" code="LBGM" displayName="L900.0530" /> & lt;statusCode code="completed" /> <component> &lt ;observation moodCode="EVN" classCode="OBS"> &lt ;templateId root="2.16.840.1.610007.10.20.22.4.2" /> < id nullFlavor="NA" /> <code codeSystem="local&quot ; code="850.0100" displayName="Glucometer" /> & lt;statusCode code="completed" /> <effectiveTime value= "263454740872" /> <value unit="mg/dL" xsi:type= "PQ" value="128" /> <referenceRange> &lt ;observationRange> <text>65-110</text> & lt;/observationRange> </referenceRange> </ observation> </component> </organizer> </entry> & lt;entry> <organizer moodCode="EVN" classCode="BATTERY& quot;> <templateId root="2.16.840.1.929220.10.20.22.4.1" /& gt; <id nullFlavor="NA" /> <code codeSystem=" local" code="LBGM" displayName="L900.0530" /> & lt;statusCode code="completed" /> <component> &lt ;observation moodCode="EVN" classCode="OBS"> &lt ;templateId root="2.16.840.1.871306.10.20.22.4.2" /> < id nullFlavor="NA" /> <code codeSystem="local&quot ; code="850.0100" displayName="Glucometer" /> & lt;statusCode code="completed" /> <effectiveTime value= "067341363392" /> <value unit="mg/dL" xsi: type="PQ" value="271" /> <referenceRange> <observationRange> <text>65-110</text&gt ; </observationRange> </referenceRange> & lt;/observation> </component> </organizer> </entry&gt ; <entry> <organizer moodCode="EVN" classCode=" BATTERY"> <templateId root="2.16.840.1.791348.10.20.22.4.1& quot; /> <id nullFlavor="NA" /> <code codeSystem ="local" code="LBMP" displayName="L200.0050" /&gt ; <statusCode code="completed" /> <component> <observation moodCode="EVN" classCode="OBS"> <templateId root="2.16.840.1.087098.10.20.22.4.2" /> <id nullFlavor="NA" /> <code codeSystem=" local" code="300.0400" displayName="FUNGAL CULTURE." /& gt; <statusCode code="completed" /> < effectiveTime value="425083810497" /> <value unit=&quot ;MG/DL" xsi:type="PQ" value="0.9" /> < referenceRange> <observationRange> <text>0.7- 1.2</text> </observationRange> </ referenceRange> </observation> </component> < component> <observation moodCode="EVN" classCode=" OBS"> <templateId root="2.16.840.1.284402.10.20.22.4.2& quot; /> <id nullFlavor="NA" /> <code codeSystem="local" code="300.0450" displayName="FUNGAL CULTURE, BLOOD." /> <statusCode code="completed" / > <effectiveTime value="388579908227" /> & lt;value unit="RATIO" xsi:type="PQ" value="48" /& gt; <interpretationCode codeSystem="local" code="*& quot; /> <referenceRange> <observationRange> <text>6-26</text> </observationRange&gt ; </referenceRange> </observation> </component> <component> <observation moodCode="EVN" classCode=& quot;OBS"> <templateIdroot=" 2.16.840.1.031310.10.20.22.4.2" /> <id nullFlavor="NA& quot; /> <code codeSystem="local" code="300.0100& quot; displayName="NA - Sodium" /> <statusCode code=& quot;completed" /> <effectiveTime value="499256854797& quot; /> <value unit="MEQ/L" xsi:type="PQ" value="140" /> <referenceRange> < observationRange> <text>134-144</text> </ observationRange> </referenceRange> </observation&gt ; </component> <component> <observation moodCode ="EVN" classCode="OBS"> <templateId root=& quot;2.16.840.1.778650.10.20.22.4.2" /> <id nullFlavor=&quot ;NA" /> <code codeSystem="local" code=" 300.0150" displayName="Potassium" /> <statusCode code ="completed" /> <effectiveTime value="452048860634 " /> <value unit="MEQ/L" xsi:type="PQ" value="5.7" /> <interpretationCode codeSystem=" local" code="*" /> <referenceRange> < observationRange> <text>3.6-5</text> < /observationRange> </referenceRange> </observation& gt; </component> <component> <observation moodCode="EVN" classCode="OBS"> <templateId root="2.16.840.1.111755.10.20.22.4.2" /> <id nullFlavor ="NA" /> <code codeSystem="local" code=" 300.0200" displayName="Chloride" /> <statusCode code="completed" /> <effectiveTime value=" 347607861403" /> <value unit="MEQ/L" xsi:type=& quot;PQ" value="100" /> <referenceRange> <observationRange> <text>98-107</text> </observationRange> </referenceRange> </ observation> </component> <component> < observation moodCode="EVN" classCode="OBS"> < templateId root="2.16.840.1.226614.10.20.22.4.2" /> < id nullFlavor="NA" /> <code codeSystem="local&quot ; code="300.0250" displayName="CO2 - Carbon Dioxide" /> <statusCode code="completed" /> < effectiveTime value="048435138532" /> <value unit=&quot ;MEQ/L" xsi:type="PQ" value="28" /> < referenceRange> <observationRange> <text> 22-30</text> </observationRange> </ referenceRange> </observation> </component> < component> <observation moodCode="EVN" classCode=" OBS"> <templateId root="2.16.840.1.612254.10.20.22.4.2& quot; /> <id nullFlavor="NA" /> <code codeSystem="local" code="300.0300" displayName="Anion Gap" /> <statusCode code="completed" /> < effectiveTime value="739902419083" /> <value unit=&quot ;MEQ/L" xsi:type="PQ" value="12" /> < referenceRange> <observationRange> <text> 5-15</text> </observationRange> </referenceRange&gt ; </observation> </component> <component> <observation moodCode="EVN" classCode="OBS"> <templateId root="2.16.840.1.862466.10.20.22.4.2" /> <id nullFlavor="NA" /> <code codeSystem=" local" code="300.0350" displayName="BUN -Blood Urea Nitrogen " /> <statusCode code="completed" /> & lt;effectiveTime value="075434658546" /> <value unit=& quot;MG/DL" xsi:type="PQ" value="43.0" /> & lt;interpretationCode codeSystem="local" code="*" /> <referenceRange> <observationRange> < text>7-17</text> </observationRange> </ referenceRange> </observation> </component> < component> <observation moodCode="EVN" classCode=" OBS"> <templateId root="2.16.840.1.784136.10.20.22.4.2& quot; /> <id nullFlavor="NA" /> <code codeSystem="local" code="300.0410" displayName=" Glomerular Filtration Rate" /> <statusCode code=" completed" /> <effectiveTime value="323923207463" /> <value unit="" xsi:type="PQ" value=" 62" /> <referenceRange> <observationRange& gt; <text>NRG</text> </observationRange> </referenceRange> </observation> </component> <component> <observation moodCode="EVN" classCode=& quot;OBS"> <templateId root=" 2.16.840.1.103883.10.20.22.4.2" /> <id nullFlavor="NA& quot; /> <code codeSystem="local" code="300.0500& quot; displayName="Glucose" /> <statusCode code=" completed" /> <effectiveTime value="936270076237"/ > <value unit="MG/DL" xsi:type="PQ" value=& quot;156" /> <interpretationCode codeSystem="local" code="*" /> <referenceRange> < observationRange> <text>65-110</text> </ observationRange> </referenceRange> </observation&gt ; </component> <component> <observation moodCode ="EVN" classCode="OBS"> <templateId root=& quot;2.16.840.1.646880.10.20.22.4.2" /> <id nullFlavor="NA& quot; /> <code codeSystem="local" code="300.2000& quot; displayName="Osmolality,Calculated" /> < statusCode code="completed" /> <effectiveTime value=& quot;457244149694" /> <value unit="MOSM/KG" xsi: type="PQ" value="283" /> <interpretationCode codeSystem="local" code="*" /> < referenceRange> <observationRange> <text>261- 280</text> </observationRange> </ referenceRange> </observation> </component> < component> <observation moodCode="EVN" classCode=" OBS"> <templateId root="2.16.840.1.436526.10.20.22.4.2& quot; /> <id nullFlavor="NA" /> <code codeSystem="local" code="300.2200" displayName="Calcium " /> <statusCode code="completed" /> & lt;effectiveTime value="430235507996" /> <value unit=& quot;MG/DL" xsi:type="PQ" value="9.5" /> & lt;referenceRange> <observationRange> <text& gt;8.4-10.2</text> </observationRange> </ referenceRange> </observation> </component> < component> <observation moodCode="EVN" classCode=" OBS"> <templateId root="2.16.840.1.065255.10.20.22.4.2& quot; /> <id nullFlavor="NA"/> <code codeSystem="local" code="300.0095" displayName=" LICTERUS" /> <statusCode code="completed" /> <effectiveTimevalue="500542816482" /> < value unit="" xsi:type="PQ" value="< 2" /& gt; <referenceRange> <observationRange> <text>0-7</text> </observationRange> & lt;/referenceRange> </observation> </component> <component> <observation moodCode="EVN" classCode=& quot;OBS"> <templateId root=" 2.16.840.1.369688.10.20.22.4.2" /> <id nullFlavor="NA& quot; /> <code codeSystem="local" code="300.0096& quot; displayName="LHEMOLYSIS" /> <statusCode code=" completed" /> <effectiveTime value="767441391905" /> <value unit="" xsi:type="PQ" value=" 125" /> <interpretationCode codeSystem="local" code="*" /> <referenceRange> <observationRange& gt; <text>0-25</text> </observationRange& gt; </referenceRange> </observation> </ component> <component> <observation moodCode="EVN& quot; classCode="OBS"> <templateId root=" 2.16.840.1.713843.10.20.22.4.2" /> <id nullFlavor="NA& quot; /> <code codeSystem="local" code="300.0097& quot; displayName="LTURBIDITY" /> <statusCode code=& quot;completed" /> <effectiveTime value="806004637203& quot; /> <value unit="" xsi:type="PQ" value=& quot;< 20" /> <referenceRange> < observationRange> <text>0-20</text> </ observationRange> </referenceRange> </observation&gt ; </component> </organizer> </entry> <entry> <organizer moodCode="EVN" classCode="BATTERY"> <templateId root="2.16.840.1.603147.10.20.22.4.1" /> < id nullFlavor="NA" /> <code codeSystem="local" code="LK" displayName="L300.0125" /> <statusCode code="completed"/> <component> <observation moodCode="EVN" classCode="OBS"> <templateId root="2.16.840.1.894681.10.20.22.4.2" /> <id nullFlavor ="NA" /> <code codeSystem="local" code=" 300.0150" displayName="Potassium" /> <statusCode code="completed" /> <effectiveTime value=" 869056820981" /> <value unit="MEQ/L" xsi:type=& quot;PQ" value="5.0" /> <referenceRange> <observationRange> <text>3.6-5</text> </observationRange> </referenceRange> </ observation> </component> <component> < observation moodCode="EVN" classCode="OBS"> < templateId root="2.16.840.1.669431.10.20.22.4.2" /> < id nullFlavor="NA" /> <code codeSystem="local&quot ; code="300.0096" displayName="LHEMOLYSIS" /> & lt;statusCode code="completed" /> <effectiveTime value= "493680118801" /> <value unit="" xsi:type=& quot;PQ" value="74" /> <interpretationCode codeSystem="local" code="*" /> < referenceRange> <observationRange> <text> 0-25</text> </observationRange> </ referenceRange> </observation> </component> </ organizer> </entry> <entry> <organizer moodCode="EVN& quot; classCode="BATTERY"> <templateId root=" 2.16.840.1.078478.10.20.22.4.1" /> <id nullFlavor="NA&quot ; /> <code codeSystem="local" code="LBGM" displayName="L900.0530" /> <statusCode code="completed&quot ; /> <component> <observation moodCode="EVN" classCode="OBS"> <templateId root=" 2.16.840.1.390283.10.20.22.4.2" /> <id nullFlavor="NA& quot; /> <code codeSystem="local" code="850.0100& quot; displayName="Glucometer" /> <statusCode code=& quot;completed" /> <effectiveTime value="501556895903& quot;/> <value unit="mg/dL" xsi:type="PQ" value="246" /> <referenceRange> < observationRange> <text>65-110</text> &lt ;/observationRange> </referenceRange> </observation& gt; </component> </organizer> </entry> <entry&gt ; <organizer moodCode="EVN" classCode="BATTERY"> <templateId root="2.16.840.1.587150.10.20.22.4.1" /> & lt;id nullFlavor="NA" /> <code codeSystem="local&quot ; code="LBGM" displayName="L900.0530" /> < statusCodecode="completed" /> <component> < observation moodCode="EVN" classCode="OBS"> < templateId root="2.16.840.1.991410.10.20.22.4.2" /> < id nullFlavor="NA" /> <code codeSystem="local&quot ; code="850.0100" displayName="Glucometer" /> & lt;statusCode code="completed" /> <effectiveTime value= "715504021775" /> <value unit="mg/dL" xsi: type="PQ" value="203" /> <referenceRange> <observationRange> <text>65-110</text&gt ; </observationRange> </referenceRange> </ observation> </component> </organizer> </entry> & lt;entry> <organizer moodCode="EVN" classCode="BATTERY& quot;> <templateId root="2.16.840.1.132749.10.20.22.4.1" /& gt; <id nullFlavor="NA" /> <code codeSystem=" local" code="LBMP" displayName="L200.0050" /> & lt;statusCode code="completed" /> <component> &lt ;observation moodCode="EVN" classCode="OBS"> &lt ;templateId root="2.16.840.1.259154.10.20.22.4.2" /> <id nullFlavor="NA" /> <code codeSystem="local" code="300.0400" displayName="FUNGAL CULTURE." /> <statusCode code="completed" /> <effectiveTime value="538621287272" /> <value unit="MG/DL" xsi:type="PQ" value="0.9" /> <referenceRange& gt; <observationRange> <text>0.7-1.2</ text> </observationRange> </referenceRange> </observation> </component> <component> <observation moodCode="EVN" classCode="OBS"> <templateId root="2.16.840.1.376335.10.20.22.4.2" /> <id nullFlavor="NA" /> <code codeSystem=" local" code="300.0450" displayName="FUNGAL CULTURE, BLOOD.& quot; /> <statusCode code="completed" /> & lt;effectiveTime value="134193389566" /> <value unit=& quot;RATIO" xsi:type="PQ" value="38" /> &lt ;interpretationCode codeSystem="local" code="*" /> <referenceRange> <observationRange> < text>6-26</text> </observationRange> </ referenceRange> </observation> </component> < component> <observation moodCode="EVN" classCode=" OBS"> <templateId root="2.16.840.1.025332.10.20.22.4.2& quot; /> <id nullFlavor="NA" /> <code codeSystem="local" code="300.0100" displayName="NA - Sodium" /> <statusCode code="completed" /> <effectiveTime value="743890500636" /> <value unit="MEQ/L" xsi:type="PQ" value="138" /> <referenceRange> <observationRange> &lt ;text>134-144</text> </observationRange> < /referenceRange> </observation> </component> &lt ;component> <observation moodCode="EVN" classCode=" OBS"> <templateId root="2.16.840.1.540031.10.20.22.4.2& quot; /> <id nullFlavor="NA" /> <code codeSystem ="local" code="300.0150" displayName="Potassium" / > <statusCode code="completed" /> < effectiveTime value="905114056744" /> <value unit=&quot ;MEQ/L" xsi:type="PQ" value="4.2" /> < referenceRange> <observationRange> <text> 3.6-5</text> </observationRange> </ referenceRange> </observation> </component> < component> <observation moodCode="EVN" classCode=" OBS"> <templateId root="2.16.840.1.935702.10.20.22.4.2& quot; /> <id nullFlavor="NA" /> <code codeSystem="local" code="300.0200" displayName=" Chloride" /> <statusCode code="completed" /> <effectiveTime value="019971969419" /> < value unit="MEQ/L" xsi:type="PQ" value="98" /> <referenceRange> <observationRange> & lt;text>98-107</text> </observationRange> &lt ;/referenceRange> </observation> </component> & lt;component> <observation moodCode="EVN"classCode=" OBS"> <templateId root="2.16.840.1.570455.10.20.22.4.2& quot; /> <id nullFlavor="NA" /> <code codeSystem="local" code="300.0250" displayName="CO2 - Carbon Dioxide" /> <statusCode code="completed" /& gt; <effectiveTime value="909594364261" /> < value unit="MEQ/L" xsi:type="PQ" value="33" /> <interpretationCode codeSystem="local" code="*&quot ; /> <referenceRange> <observationRange> <text>22-30</text> </observationRange> </referenceRange> </observation> </component& gt; <component> <observation moodCode="EVN" classCode="OBS"> <templateId root=" 2.16.840.1.962028.10.20.22.4.2" /> <id nullFlavor="NA& quot; /> <code codeSystem="local" code="300.0300& quot; displayName="Anion Gap" /> <statusCode code=&quot ;completed" /> <effectiveTime value="479763908409" / > <value unit="MEQ/L" xsi:type="PQ" value=& quot;7" /> <referenceRange> < observationRange> <text>5-15</text> </ observationRange> </referenceRange> </observation&gt ; </component> <component> <observation moodCode ="EVN" classCode="OBS"> <templateId root=& quot;2.16.840.1.685414.10.20.22.4.2" /> <id nullFlavor=&quot ;NA" /> <code codeSystem="local" code=" 300.0350" displayName="BUN - Blood Urea Nitrogen" /> <statusCode code="completed" /> <effectiveTime value=" 358431600560" /> <value unit="MG/DL" xsi:type=& quot;PQ" value="34.0" /> <interpretationCode codeSystem="local" code="*" /> < referenceRange> <observationRange> <text> 7-17</text> </observationRange> </ referenceRange> </observation> </component> < component> <observation moodCode="EVN" classCode=" OBS"> <templateId root="2.16.840.1.177285.10.20.22.4.2& quot; /> <id nullFlavor="NA" /><code codeSystem=& quot;local" code="300.0410" displayName="Glomerular Filtration Rate" /> <statusCode code="completed" / > <effectiveTime value="871929921360" /> & lt;value unit="" xsi:type="PQ"value="62" /> <referenceRange> <observationRange> <text >NRG</text> </observationRange> </ referenceRange> </observation> </component> < component> <observation moodCode="EVN" classCode=" OBS"> <templateId root="2.16.840.1.453854.10.20.22.4.2& quot; /> <id nullFlavor="NA" /> <code codeSystem="local" code="300.0500" displayName="Glucose " /><statusCode code="completed" /> < effectiveTime value="[id number]" /> <value unit=&quot ;MG/DL" xsi:type="PQ" value="163" /> < interpretationCode codeSystem="local" code="*" /> <referenceRange> <observationRange> < text>65-110</text> </observationRange> </ referenceRange> </observation> </component> < component> <observation moodCode="EVN" classCode=" OBS"> <templateId root="[id number]& quot; /> <id nullFlavor="NA" /> <code codeSystem="local" code="300.2000" displayName=" Osmolality,Calculated" /> <statusCode code="completed& quot; /> <effectiveTime value="047912674434" /> <value unit="MOSM/KG" xsi:type="PQ" value="278 " /> <referenceRange> <observationRange&gt ; <text>261-280</text> </observationRange&gt ; </referenceRange> </observation></component&gt ; <component> <observation moodCode="EVN" classCode="OBS"> <templateId root=" 2.16.840.1.364337.10.20.22.4.2" /> <id nullFlavor="NA" /> <code codeSystem="local" code="300.2200" displayName="Calcium" /> <statusCode code=" completed" /> <effectiveTime value="913638709590" /> <value unit="MG/DL" xsi:type="PQ" value=& quot;9.0" /> <referenceRange> < observationRange> <text>8.4-10.2</text> & lt;/observationRange> </referenceRange> </ observation> </component> <component> < observation moodCode="EVN" classCode="OBS"> < templateId root="2.16.840.1.477388.10.20.22.4.2" /> < id nullFlavor="NA" /> <code codeSystem="local&quot ; code="300.0095" displayName="LICTERUS" /> < statusCode code="completed" /> <effectiveTime value=" 977831962799" /> <value unit="" xsi:type="PQ& quot; value="< 2" /> <referenceRange> <observationRange> <text>0-7</text> </observationRange> </referenceRange> </ observation> </component> <component> < observation moodCode="EVN" classCode="OBS"> < templateId root="2.16.840.1.420492.10.20.22.4.2" /> < id nullFlavor="NA"/> <code codeSystem="local&quot ; code="300.0096" displayName="LHEMOLYSIS" /> & lt;statusCode code="completed" /> <effectiveTime value= "563486770177" /> <value unit="" xsi:type=& quot;PQ" value="< 15" /> <referenceRange&gt ; <observationRange> <text>0-25</text&gt ; </observationRange> </referenceRange> & lt;/observation> </component> <component> < observation moodCode="EVN" classCode="OBS"> < templateId root="2.16.840.1.025377.10.20.22.4.2" /> < id nullFlavor="NA" /> <code codeSystem="local&quot ; code="300.0097" displayName="LTURBIDITY" /> & lt;statusCode code="completed" /> <effectiveTime value= "553814575063" /> <value unit="" xsi:type=& quot;PQ" value="< 20" /> <referenceRange&gt ; <observationRange> <text>0-20</text&gt ; </observationRange> </referenceRange> < /observation> </component> </organizer> </entry> <entry> <organizer moodCode="EVN" classCode="BATTERY& quot;> <templateId root="2.16.840.1.931516.10.20.22.4.1" /& gt; <id nullFlavor="NA" /> <code codeSystem=" local" code="LMAG" displayName="L200.2000" /> < statusCode code="completed" /> <component> < observation moodCode="EVN" classCode="OBS"> < templateId root="2.16.840.1.990794.10.20.22.4.2" /> < id nullFlavor="NA" /> <code codeSystem="local&quot ; code="300.2350" displayName="MAG - Magnesium" /> < statusCode code="completed" /> <effectiveTime value=& quot;814671368217" /> <value unit="MG/DL" xsi:type ="PQ" value="2.1"/> <referenceRange> <observationRange> <text>1.6-2.3</text> </observationRange> </referenceRange> < /observation> </component> </organizer> </entry> <entry> <organizer moodCode="EVN" classCode="BATTERY& quot;> <templateId root="2.16.840.1.629784.10.20.22.4.1" /& gt; <id nullFlavor="NA" /> <code codeSystem=" local" code="LUAMIC" displayName="L200.0050" /> <statusCode code="completed" /> <component> <observation moodCode="EVN" classCode="OBS"> <templateId root="2.16.840.1.945903.10.20.22.4.2" /> & lt;id nullFlavor="NA" /> <code codeSystem="local& quot; code="200.0150" displayName="POTASSIUM" /> <statusCode code="completed" /> <effectiveTime value="423355543763" /> <value unit="" xsi:type ="PQ" value="Urine, Catheter" /> < referenceRange> <observationRange> <text> NRG</text> </observationRange> </ referenceRange> </observation> </component> < component> <observation moodCode="EVN" classCode=" OBS"> <templateId root="2.16.840.1.702519.10.20.22.4.2& quot;/> <id nullFlavor="NA" /> <code codeSystem="local"code="200.0200" displayName="CHLORIDE " /> <statusCode code="completed" /> & lt;effectiveTime value="072467481662" /> <value unit=& quot;" xsi:type="PQ" value="YELLOW" /> < referenceRange> <observationRange> <text> YELLOW</text> </observationRange> </ referenceRange> </observation> </component> < component> <observation moodCode="EVN" classCode=" OBS"> <templateId root="2.16.840.1.447223.10.20.22.4.2& quot; /> <id nullFlavor="NA" /> <code codeSystem="local" code="200.0300" displayName="ANION GAP" /> <statusCode code="completed" /> <effectiveTime value="122178405277" /> <value unit="" xsi:type="PQ" value="CLEAR" /> <referenceRange> <observationRange> < text>NRG</text> </observationRange> </ referenceRange> </observation> </component> < component> <observation moodCode="EVN" classCode=" OBS"> <templateId root="2.16.840.1.833136.10.20.22.4.2& quot; /> <id nullFlavor="NA" /> <code codeSystem="local" code="200.0350" displayName="BLOOD UREA NITROGEN" /> <statusCode code="completed" /& gt; <effectiveTime value="964897353689" /> &lt ;value unit="" xsi:type="PQ" value="6.0" /> <referenceRange> <observationRange> & lt;text>5.0-8.0</text> </observationRange> & lt;/referenceRange> </observation> </component> <component> <observation moodCode="EVN" classCode="OBS& quot;> <templateId root="2.16.840.1.434076.10..22.4.2&quot ; /> <id nullFlavor="NA" /> <code codeSystem ="local" code="200.0450" displayName="BUN/CREATININE RATIO" /> <statusCode code="completed" /> <effectiveTime value="152311544317" /> <value unit="" xsi:type="PQ"value="NEGATIVE" /> <referenceRange> <observationRange> < text>NEGATIVE</text> </observationRange> < /referenceRange> </observation> </component> &lt ;component> <observation moodCode="EVN" classCode=" OBS"> <templateId root="2.16.840.1.356837.10..22.4.2& quot; /> <id nullFlavor="NA" /> <code codeSystem= "local" code="200.0500" displayName="GLUCOSE" /&gt ; <statusCode code="completed" /> < effectiveTime value="717951643654" /> <value unit=&quot ;" xsi:type="PQ" value="NEGATIVE" /> < referenceRange> <observationRange> <text> NEGATIVE</text> </observationRange> </ referenceRange> </observation> </component> < component> <observation moodCode="EVN" classCode=" OBS"> <templateId root="2.16.840.1.459466.10.20.22.4.2& quot; /> <id nullFlavor="NA" /> <code codeSystem="local" code="200.0600" displayName="CALCIUM " /> <statusCode code="completed" /> & lt;effectiveTime value="416365208694" /> <value unit=& quot;" xsi:type="PQ" value="NEGATIVE" /> < referenceRange> <observationRange> <text> NEGATIVE</text> </observationRange> </ referenceRange> </observation> </component> < component> <observation moodCode="EVN" classCode=" OBS"> <templateId root="2.16.840.1.212806.10.20.22.4.2& quot; /> <id nullFlavor="NA" /> <code codeSystem="local" code="200.0750" displayName=" BILIRUBIN, CONJUG &amp; UNCONJUG" /> <statusCode code= "completed" /> <effectiveTime value="735553216380& quot; /> <value unit="" xsi:type="PQ" value=& quot;NEGATIVE" /> <referenceRange> < observationRange> <text>NEGATIVE</text> & lt;/observationRange> </referenceRange> </observation> </component> <component> <observation moodCode= "EVN" classCode="OBS"> <templateId root=&quot ;2.16.840.1.103531.10.20.22.4.2" /> <id nullFlavor="NA& quot; /> <code codeSystem="local" code="200.1000& quot; displayName="TOTAL PROTEIN" /> <statusCode code=& quot;completed" /> <effectiveTime value="815505040789& quot; /> <value unit="/HPF" xsi:type="PQ" value="1-3" /> <referenceRange> < observationRange> <text>0-3</text> </ observationRange> </referenceRange> </observation&gt ; </component> <component> <observation moodCode ="EVN" classCode="OBS"> <templateId root=& quot;2.16.840.1.911069.10.20.22.4.2"/> <id nullFlavor=" NA" /> <code codeSystem="local"code="200.1050 " displayName="ALBUMIN" /> <statusCode code=" completed" /> <effectiveTime value="502223045396" /> <value unit="/HPF" xsi:type="PQ" value=& quot;1-3" /> <referenceRange> < observationRange> <text>0-5</text> </ observationRange> </referenceRange> </observation&gt ; </component> <component> <observation moodCode ="EVN" classCode="OBS"> <templateId root=& quot;2.16.840.1.816855.10.20.22.4.2" /> <id nullFlavor=&quot ;NA" /> <code codeSystem="local" code=" 200.1150" displayName="ALBUMIN/GLOBULIN RATIO" /> &lt ;statusCode code="completed" /> <effectiveTime value=& quot;207912083159" /> <value unit="" xsi:type=& quot;PQ" value="0-5" /> <referenceRange> & lt;observationRange> <text>NRG</text> &lt ;/observationRange> </referenceRange> </observation& gt; </component> <component> <observation moodCode="EVN" classCode="OBS"> <templateId root=&quot ;2.16.840.1.357572.10.20.22.4.2" /> <id nullFlavor="NA& quot; /> <code codeSystem="local" code="200.1200& quot; displayName="AST (SGOT)" /> <statusCode code=& quot;completed" /> <effectiveTime value="115873790214& quot; /> <value unit="/HPF" xsi:type="PQ" value="1-3" /> <referenceRange> < observationRange> <text>NRG</text> </ observationRange> </referenceRange> </observation&gt ; </component> <component> <observation moodCode=" EVN" classCode="OBS"> <templateId root=" 2.16.840.1.408564.10..22.4.2" /> <id nullFlavor="NA& quot; /> <code codeSystem="local" code="200.1750" displayName="CKMB" /> <statusCode code="completed& quot; /> <effectiveTime value="379400107590" /> <value unit="" xsi:type="PQ" value="Trace&quot ; /> <interpretationCode codeSystem="local" code=" *" /> <referenceRange> <observationRange> <text>NEGATIVE</text> </observationRange& gt; </referenceRange> </observation> </ component> <component> <observation moodCode="EVN& quot; classCode="OBS"> <templateId root=" 2.16.840.1.807090.10.20.22.4.2" /> <id nullFlavor="NA& quot; /> <code codeSystem="local" code="200.1850& quot; displayName="TROPONIN I" /> <statusCode code=& quot;completed" /> <effectiveTime value="932673639948& quot; /> <value unit="/LPF" xsi:type="PQ" value="0-1" /> <referenceRange> < observationRange> <text>NRG</text> </ observationRange> </referenceRange> </observation&gt ; </component> <component> <observation moodCode ="EVN" classCode="OBS"> <templateId root=& quot;216.840.1.493237.10.20.22.4.2" /> <id nullFlavor=&quot ;NA" /> <code codeSystem="local" code=" 200.2600" displayName="GENTAMICIN,RANDOM" /> < statusCode code="completed" /> <effectiveTime value=& quot;110783627211" /> <value unit="" xsi:type=& quot;PQ" value="Cult not indicated" /> < referenceRange> <observationRange> <text> NRG</text> </observationRange> </ referenceRange> </observation> </component> < component> <observation moodCode="EVN" classCode=" OBS"> <templateId root="2.16.840.1.706860.10.20.22.4.2& quot; /> <id nullFlavor="NA" /> <code codeSystem="local" code="200.0325" displayName=" Specific [place],Urine" /> <statusCode code="completed& quot; /> <effectiveTime value="750603541999" /> <value unit="" xsi:type="PQ" value="1.010&quot ; /> <interpretationCodecodeSystem="local" code="* " /> <referenceRange> <observationRange&gt ; <text>1.015-1.025</text> </ observationRange> </referenceRange> </observation&gt ; </component> <component> <observation moodCode ="EVN" classCode="OBS"><templateId root=" 2.16.840.1.219236.10.20.22.4.2" /> <id nullFlavor="NA& quot; /> <code codeSystem="local" code="200.0410& quot; displayName="Leukocyte Esterase,Urine" /> < statusCode code="completed" /> <effectiveTime value=&quot ;363240296992" /> <value unit="" xsi:type="PQ " value="TRACE" /> <referenceRange> <observationRange> <text>NEGATIVE</text> </observationRange> </referenceRange> </ observation> </component> <component> < observation moodCode="EVN" classCode="OBS"> < templateId root="2.16.840.1.524627.10.20.22.4.2" /> < id nullFlavor="NA" /> <code codeSystem="local&quot ; code="200.0420" displayName="Nitrate,Urine" /> <statusCode code="completed" /> <effectiveTime value="851559028584" /> <value unit="" xsi: type="PQ" value="NEGATIVE" /> <referenceRange > <observationRange> <text>NEGATIVE</ text> </observationRange></referenceRange> < /observation> </component> <component> < observation moodCode="EVN" classCode="OBS"> < templateId root="2.16.840.1.907758.10.20.22.4.2" /> < id nullFlavor="NA" /> <code codeSystem="local&quot ; code="200.0740" displayName="Urobilinogen,Urine" /> <statusCode code="completed" /> < effectiveTime value="254458145185" /> <value unit=&quot ;EU/DL" xsi:type="PQ" value="0.2" /> < referenceRange> <observationRange> <text> NORMAL</text> </observationRange> </ referenceRange> </observation> </component> < component> <observation moodCode="EVN" classCode=" OBS"> <templateId root="2.16.840.1.895997.10.20.22.4.2& quot; /> <id nullFlavor="NA" /><code codeSystem=& quot;local" code="200.0825" displayName="Occult Blood,Urine - Dipstick" /> <statusCode code="completed" /> <effectiveTime value="782974678393" /> < value unit="" xsi:type="PQ" value="1+" /> <referenceRange> <observationRange> < text>NEGATIVE</text> </observationRange> < /referenceRange> </observation> </component> </ organizer> </entry> <entry> <organizer moodCode="EVN " classCode="BATTERY"> <templateId root=" 2.16.840.1.817817.10.20.22.4.1" /> <id nullFlavor="NA&quot ; /> <code codeSystem="local" code="LBGM" displayName="L900.0530" /> <statusCode code="completed " /> <component> <observation moodCode="EVN& quot; classCode="OBS"> <templateId root=" 2.16.840.1.944968.10.20.22.4.2" /> <id nullFlavor="NA& quot; /> <code codeSystem="local" code="850.0100& quot; displayName="Glucometer" /> <statusCode code=& quot;completed" /> <effectiveTime value="618167687613& quot; /> <value unit="mg/dL" xsi:type="PQ" value="141" /> <referenceRange> < observationRange> <text>65-110</text> &lt ;/observationRange> </referenceRange> </observation> </component> </organizer> </entry> <entry> <organizer moodCode="EVN" classCode="BATTERY"> <templateId root="2.16.840.1.355493.10.20.22.4.1" /> < id nullFlavor="NA" /> <code codeSystem="local" code="LBGM" displayName="L900.0530" /> <statusCode code="completed" /> <component> <observation moodCode="EVN" classCode="OBS"> <templateId root="2.16.840.1.401355.10.20.22.4.2" /> <id nullFlavor ="NA" /> <code codeSystem="local" code=" 850.0100" displayName="Glucometer" /> <statusCode code="completed" /> <effectiveTime value=" 705473928589" /> <value unit="mg/dL" xsi:type=& quot;PQ" value="133" /> <referenceRange> <observationRange> <text>65-110</text> </observationRange> </referenceRange> </ observation> </component> </organizer> </entry> & lt;entry> <organizer moodCode="EVN" classCode="BATTERY& quot;> <templateId root="2.16.840.1.776324.10.20.22.4.1" /& gt; <id nullFlavor="NA" /> <code codeSystem=" local" code="LBGM" displayName="L900.0530" /> & lt;statusCode code="completed" /> <component> &lt ;observation moodCode="EVN" classCode="OBS"> &lt ;templateId root="2.16.840.1.462542.10.20.22.4.2" /> < id nullFlavor="NA" /> <code codeSystem="local&quot ; code="850.0100" displayName="Glucometer" /> & lt;statusCode code="completed" /> <effectiveTime value= "539529350336" /><value unit="mg/dL" xsi:type="PQ " value="155" /> <referenceRange> & lt;observationRange> <text>65-110</text> </ observationRange> </referenceRange> </observation&gt ; </component> </organizer> </entry> <entry> <organizer moodCode="EVN" classCode="BATTERY"> <templateId root="2.16.840.1.300846.10.20.22.4.1" /> < id nullFlavor="NA" /> <code codeSystem="local" code="LBGM" displayName="L900.0530" /> < statusCode code="completed" /> <component> < observation moodCode="EVN" classCode="OBS"> < templateId root="2.16.840.1.599229.10.20.22.4.2" /> <id nullFlavor="NA" /> <code codeSystem="local" code="850.0100" displayName="Glucometer" /> < statusCode code="completed" /> <effectiveTime value=& quot;295626027052" /> <value unit="mg/dL" xsi:type ="PQ" value="175" /> <referenceRange> <observationRange> <text>65-110</text> </observationRange> </referenceRange> </ observation> </component> </organizer> </entry> & lt;entry> <organizer moodCode="EVN" classCode="BATTERY& quot;> <templateId root="2.16.840.1.155529.10.20.22.4.1" /& gt; <id nullFlavor="NA" /> <code codeSystem=" local" code="LCMP" displayName="L200.0020" /> & lt;statusCode code="completed" /> <component> &lt ;observation moodCode="EVN" classCode="OBS"> &lt ;templateId root="2.16.840.1.744783.10.20.22.4.2" /> < id nullFlavor="NA" /> <code codeSystem="local&quot ; code="300.0400" displayName="FUNGAL CULTURE." /> <statusCode code="completed" /> <effectiveTime value="859985431095" /> <value unit="MG/DL" xsi:type="PQ" value="0.9" /> <referenceRange& gt;<observationRange> <text>0.7-1.2</text> </observationRange> </referenceRange> </ observation> </component> <component> < observation moodCode="EVN" classCode="OBS">< templateId root="2.16.840.1.030858.10.20.22.4.2" /> < id nullFlavor="NA" /> <code codeSystem="local&quot ; code="300.0450" displayName="FUNGAL CULTURE, BLOOD." /&gt ; <statusCode code="completed" /> < effectiveTime value="457719409715" /> <value unit=&quot ;RATIO" xsi:type="PQ" value="41" /> < interpretationCode codeSystem="local" code="*" /> <referenceRange> <observationRange> < text>6-26</text> </observationRange> </ referenceRange> </observation> </component> < component> <observation moodCode="EVN" classCode=" OBS"> <templateId root="2.16.840.1.645396.10.20.22.4.2& quot; /> <id nullFlavor="NA" /> <code codeSystem ="local" code="300.0100" displayName="NA - Sodium&quot ; /> <statusCode code="completed" /> < effectiveTime value="770939771047" /> <value unit=&quot ;MEQ/L" xsi:type="PQ" value="139" /> < referenceRange> <observationRange><text>134-144</ text> </observationRange> </referenceRange> </observation> </component> <component> <observation moodCode="EVN" classCode="OBS"> <templateId root="2.16.840.1.259302.10.20.22.4.2" /> <id nullFlavor="NA" /> <code codeSystem=" local" code="300.0150" displayName="Potassium" /> <statusCode code="completed" /> < effectiveTime value="484933362852" /> <value unit=&quot ;MEQ/L" xsi:type="PQ" value="4.5" /> < referenceRange> <observationRange> <text> 3.6-5</text> </observationRange> </ referenceRange> </observation> </component> < component> <observation moodCode="EVN" classCode=" OBS"> <templateId root="2.16.840.1.397902.10..22.4.2& quot; /> <id nullFlavor="NA" /> <code codeSystem="local" code="300.0200" displayName=" Chloride" /> <statusCode code="completed" /> <effectiveTime value="226547126640" /> < value unit="MEQ/L" xsi:type="PQ" value="95" /> <interpretationCode codeSystem="local" code="*&quot ; /> <referenceRange> <observationRange> <text>98-107</text> </observationRange> </referenceRange> </observation> </component& gt; <component> <observation moodCode="EVN" classCode="OBS"> <templateId root=" 2.16.840.1.710772.10.20.22.4.2" /> <id nullFlavor="NA& quot; /> <code codeSystem="local" code="300.0250& quot; displayName="CO2 - Carbon Dioxide" /> < statusCode code="completed" /> <effectiveTime value=& quot;434601450615" /> <value unit="MEQ/L" xsi:type ="PQ" value="35" /> <interpretationCode codeSystem="local" code="*" /> < referenceRange> <observationRange> <text> 22-30</text> </observationRange> </referenceRange> </observation> </component> <component> <observation moodCode="EVN" classCode="OBS"> <templateIdroot="2.16.840.1.956311.10.20.22.4.2" /> <id nullFlavor="NA" /> <code codeSystem="local& quot; code="300.0300" displayName="Anion Gap" /> <statusCode code="completed" /> <effectiveTime value="823906555484" /> <value unit="MEQ/L" xsi:type="PQ" value="9" /> <referenceRange&gt ; <observationRange> <text>5-15</text> </observationRange> </referenceRange> </ observation> </component> <component> < observationmoodCode="EVN" classCode="OBS"> < templateId root="2.16.840.1.871465.10.20.22.4.2" /> < id nullFlavor="NA" /> <code codeSystem="local&quot ; code="300.0350" displayName="BUN - Blood Urea Nitrogen" /& gt; <statusCode code="completed" /> < effectiveTime value="040513172871" /> <value unit=&quot ;MG/DL" xsi:type="PQ" value="37.0" /> < interpretationCode codeSystem="local" code="*"/> <referenceRange> <observationRange> < text>7-17</text> </observationRange> </ referenceRange> </observation> </component> < component> <observation moodCode="EVN" classCode=" OBS"> <templateId root="2.16.840.1.694125.10.20.22.4.2& quot; /> <id nullFlavor="NA" /> <code codeSystem="local" code="300.0410" displayName=" Glomerular Filtration Rate" /> <statusCode code=" completed" /> <effectiveTime value="305942167647" /> <value unit="" xsi:type="PQ" value=" 62" /> <referenceRange> <observationRange> <text>NRG</text> </observationRange> </referenceRange> </observation> </component > <component> <observation moodCode="EVN" classCode="OBS"> <templateId root=" 2.16.840.1.320645.10.20.22.4.2" /> <id nullFlavor="NA& quot; /> <code codeSystem="local" code="300.0500& quot; displayName="Glucose" /> <statusCode code=" completed" /> <effectiveTime value="570364407235" /> <valueunit="MG/DL" xsi:type="PQ" value=& quot;137" /> <interpretationCode codeSystem="local&quot ; code="*" /> <referenceRange> <observationRange > <text>65-110</text> </ observationRange> </referenceRange> </observation&gt ; </component> <component> <observation moodCode ="EVN" classCode="OBS"> <templateId root=" 2.16.840.1.025104.10.20.22.4.2" /> <id nullFlavor="NA& quot; /> <code codeSystem="local" code="300.2000& quot; displayName="Osmolality,Calculated" /> < statusCode code="completed" /> <effectiveTime value=" 990175310667" /> <value unit="MOSM/KG" xsi:type=& quot;PQ" value="279" /> <referenceRange> <observationRange> <text>261-280</text> </observationRange> </referenceRange> </ observation> </component> <component> < observation moodCode="EVN" classCode="OBS"> < templateId root="2.16.840.1.654860.10.20.22.4.2" /> < id nullFlavor="NA" /> <code codeSystem="local&quot ; code="300.2200" displayName="Calcium" /> < statusCode code="completed" /> <effectiveTime value=& quot;192843243397" /> <value unit="MG/DL" xsi:type ="PQ" value="9.6" /> <referenceRange> <observationRange> <text>8.4-10.2</text> </observationRange> </referenceRange> & lt;/observation> </component> <component> < observation moodCode="EVN" classCode="OBS"> < templateId root="2.16.840.1.476517.10.20.22.4.2" /> < id nullFlavor="NA" /> <code codeSystem="local" code="300.2700" displayName="Bilirubin,Total" /> <statusCode code="completed" /> <effectiveTime value="314084537152" /> <value unit="MG/DL" xsi:type="PQ" value="0.40" /> <referenceRange > <observationRange> <text>0.20-1.30</text& gt; </observationRange> </referenceRange> </observation> </component> <component> &lt ;observation moodCode="EVN" classCode="OBS"> &lt ;templateId root="2.16.840.1.893897.10.20.22.4.2" /> < id nullFlavor="NA" /> <code codeSystem="local&quot ; code="300.2975" displayName="Alkaline Phosphatase" /> <statusCode code="completed" /> < effectiveTime value="309107465856" /> <value unit=&quot ;U/L" xsi:type="PQ" value="46" /> < referenceRange> <observationRange> <text>38-126</ text> </observationRange> </referenceRange> </observation> </component> <component> <observation moodCode="EVN" classCode="OBS"> <templateId root="2.16.840.1.864547.10.20.22.4.2" /> <id nullFlavor="NA" /> <code codeSystem=" local" code="300.3050" displayName="AST - Aspartate Amino Transfer" /> <statusCode code="completed" /> <effectiveTime value="705409536845" /> < value unit="U/L" xsi:type="PQ" value="32" /> <referenceRange> <observationRange> <text> 14-36</text> </observationRange> </ referenceRange> </observation> </component> < component> <observation moodCode="EVN" classCode=" OBS"> <templateId root="2.16.840.1.047488.10.20.22.4.2& quot; /> <id nullFlavor="NA" /> <code codeSystem="local" code="300.3100" displayName="ALT& quot; /> <statusCode code="completed" /> & lt;effectiveTime value="638003235094" /> <value unit=& quot;U/L" xsi:type="PQ" value="29" /> < referenceRange> <observationRange> <text> 9-52</text> </observationRange> </ referenceRange> </observation> </component> < component> <observation moodCode="EVN" classCode=" OBS"> <templateId root="2.16.840.1.155373.10.20.22.4.2& quot; /> <id nullFlavor="NA" /> <code codeSystem="local" code="300.3110" displayName="TP - Total Protein" /> <statusCode code="completed" /& gt; <effectiveTime value="[id number]" /> &lt ;value unit="G/DL" xsi:type="PQ" value="6.8" /&gt ; <referenceRange> <observationRange> <text>6.3-8.2</text> </observationRange> < /referenceRange> </observation> </component> &lt ;component> <observation moodCode="EVN" classCode=" OBS"> <templateId root="2.16.840.1.279375.10.20.22.4.2& quot; /> <id nullFlavor="NA" /> <code codeSystem= "local" code="300.3120" displayName="Albumin Level&quot ; /> <statusCode code="completed" /> < effectiveTime value="687370572697" /> <value unit=&quot ;G/DL" xsi:type="PQ" value="3.4" /> < interpretationCode codeSystem="local" code="*" /> <referenceRange> <observationRange> < text>3.5-5.0</text> </observationRange> </ referenceRange> </observation> </component> < component> <observation moodCode="EVN" classCode=" OBS"> <templateId root="2.16.840.1.101780.10.20.22.4.2& quot; /> <id nullFlavor="NA" /> <code codeSystem="local" code="300.3130" displayName=" Globulin" /> <statusCode code="completed" /> <effectiveTime value="108942818112" /> < value unit="G/DL" xsi:type="PQ" value="3.4" /> <referenceRange> <observationRange> <text>2.4-3.6</text> </observationRange> </referenceRange> </observation> </component> <component> <observation moodCode="EVN" classCode ="OBS"> <templateId root=" 2.16.840.1.091847.10.20.22.4.2" /> <id nullFlavor="NA& quot; /> <code codeSystem="local" code="300.3140" displayName="Albumin/Globulin Ratio" /> <statusCode code="completed" /> <effectiveTimevalue=" 342989459794" /> <value unit="RATIO" xsi:type=& quot;PQ" value="1.0" /> <interpretationCode codeSystem="local" code="*" /> < referenceRange> <observationRange> <text> 1.1-2.2</text> </observationRange> </ referenceRange> </observation> </component> < component> <observation moodCode="EVN" classCode=" OBS"> <templateId root="2.16.840.1.899699.10.20.22.4.2& quot; /> <id nullFlavor="NA" /> <code codeSystem="local" code="300.0095" displayName=" LICTERUS" /> <statusCode code="completed" /> <effectiveTime value="662694064302" /> < value unit="" xsi:type="PQ" value="< 2" /& gt; <referenceRange> <observationRange> <text>0-7</text> </observationRange> & lt;/referenceRange> </observation> </component> <component> <observation moodCode="EVN" classCode=& quot;OBS"> <templateId root=" 2.16.840.1.848284.10.20.22.4.2"/> <id nullFlavor="NA& quot; /> <code codeSystem="local"code="300.0096& quot; displayName="LHEMOLYSIS" /> <statusCode code=& quot;completed" /> <effectiveTime value="709191033045& quot; /> <value unit="" xsi:type="PQ" value=& quot;51" /> <interpretationCode codeSystem="local&quot ; code="*" /> <referenceRange> <observationRange& gt; <text>0-25</text> </observationRange& gt; </referenceRange> </observation> </ component> <component> <observation moodCode="EVN& quot; classCode="OBS"> <templateId root=" 2.16.840.1.863911.10.20.22.4.2" /> <id nullFlavor="NA& quot; /> <code codeSystem="local" code="300.0097& quot; displayName="LTURBIDITY" /> <statusCode code=& quot;completed" /> <effectiveTime value="280554486339& quot; /> <value unit="" xsi:type="PQ" value=& quot;< 20" /> <referenceRange> < observationRange> <text>0-20</text> </ observationRange> </referenceRange> </observation&gt ; </component> </organizer> </entry> <entry> <organizer moodCode="EVN" classCode="BATTERY"> <templateId root="2.16.840.1.255821.10.20.22.4.1" /> < id nullFlavor="NA" /> <code codeSystem="local" code="LMAG" displayName="L200.2000" /> < statusCode code="completed" /> <component> < observation moodCode="EVN" classCode="OBS"> < templateId root="2.16.840.1.190238.10.20.22.4.2" /> < id nullFlavor="NA" /> <code codeSystem="local" code="300.2350" displayName="MAG - Magnesium" /> <statusCode code="completed" /> < effectiveTimevalue="271020395295" /> <value unit=" MG/DL" xsi:type="PQ" value="1.8" /> < referenceRange> <observationRange> <text>1.6- 2.3</text> </observationRange> </ referenceRange> </observation> </component> </ organizer> </entry> <entry> <organizer moodCode="EVN " classCode="BATTERY"> <templateId root=" 2.16.840.1.974143.10.20.22.4.1" /> <id nullFlavor="NA&quot ; /> <code codeSystem="local" code="LCBC" displayName="L100.0050" /> <statusCode code="completed " /> <component> <observation moodCode="EVN& quot; classCode="OBS"> <templateId root=" 2.16.840.1.334665.10.20.22.4.2" /> <id nullFlavor="NA& quot; /> <code codeSystem="local" code="100.0150& quot; displayName="WBC - WHITE BLOOD COUNT" /> < statusCode code="completed" /> <effectiveTime value=& quot;997225418524" /> <value unit="T/MM3" xsi:type ="PQ"value="9.0" /> <referenceRange> <observationRange> <text>4.5-11.0</text> </observationRange> </referenceRange> </ observation> </component> <component> < observation moodCode="EVN" classCode="OBS"> < templateId root="2.16.840.1.403780.10.20.22.4.2" /> < id nullFlavor="NA" /> <code codeSystem="local&quot ; code="100.0250" displayName="RED BLOOD COUNT" /> <statusCode code="completed" /> <effectiveTime value="987123575397" /> <value unit="M/MM3" xsi:type="PQ" value="4.27" /> <referenceRange > <observationRange> <text>4.00-5.20</ text> </observationRange> </referenceRange> </observation> </component> <component> <observationmoodCode="EVN" classCode="OBS"> <templateId root="07.31.840.1.907430.10.20.22.4.2" /> <id nullFlavor="NA" /> <code codeSystem=" local" code="100.0300" displayName="HGB - HEMOGLOBIN" / > <statusCode code="completed" /> < effectiveTime value="429329274015" /> <value unit=&quot ;GM/DL" xsi:type="PQ" value="12.5" /> < referenceRange> <observationRange> <text> 12-16</text> </observationRange> </ referenceRange> </observation> </component> < component> <observation moodCode="EVN" classCode=" OBS"> <templateId root="2.840.1.182796.10.20.22.4.2& quot; /> <id nullFlavor="NA" /> <code codeSystem="local" code="100.0400" displayName="HCT - HEMATOCRIT" /> <statusCode code="completed" /> <effectiveTime value="854126093861" /> < value unit="%" xsi:type="PQ" value="38.4" /> <referenceRange> <observationRange> <text>36-46</text> </observationRange> </referenceRange> </observation> </component&gt ; <component> <observation moodCode="EVN" classCode="OBS"> <templateId root=" 2.16.840.1.827718.10.20.22.4.2" /> <id nullFlavor="NA& quot; /> <code codeSystem="local" code="100.0550& quot; displayName="MEAN CORPUSCULAR VOLUME" /> < statusCode code="completed" /> <effectiveTime value=& quot;926144311718" /> <value unit="UM3" xsi:type=& quot;PQ" value="89.9" /> <referenceRange> <observationRange> <text>80-100</text> </observationRange> </referenceRange> </ observation> </component> <component> < observation moodCode="EVN" classCode="OBS"> < templateId root="2.16.840.1.718285.10.20.22.4.2" /> < id nullFlavor="NA" /> <code codeSystem="local&quot ; code="100.0600" displayName="MEAN CORPUSCULAR HGB" /> <statusCode code="completed" /> < effectiveTime value="698464467763" /> <value unit=" UUG" xsi:type="PQ" value="29.3" /><referenceRange > <observationRange> <text>26-34</text > </observationRange> </referenceRange> </observation> </component> <component> < observation moodCode="EVN" classCode="OBS"> < templateId root="2.16.840.1.085942.10.20.22.4.2" /> <id nullFlavor="NA" /> <code codeSystem="local" code="100.0650" displayName="MEAN CORPUSCULAR HGB CONC([facility]&quot ; /> <statusCode code="completed" /> < effectiveTime value="077456694883" /> <value unit=" GM/DL" xsi:type="PQ" value="32.6" /> < referenceRange> <observationRange> <text> 31-37</text> </observationRange> </ referenceRange> </observation> </component> < component> <observation moodCode="EVN" classCode=" OBS"> <templateId root="2.16.840.1.175310.10.20.22.4.2& quot; /> <id nullFlavor="NA" /> <code codeSystem="local" code="100.0750" displayName="RDW STANDARD DEVIATION" /> <statusCode code="completed&quot ; /> <effectiveTime value="605821246872" /> < value unit="FL" xsi:type="PQ" value="51.5" /> <interpretationCode codeSystem="local" code="*" /> <referenceRange> <observationRange> <text>36.9-50.2</text> </observationRange> </referenceRange> </observation> </ component> <component> <observation moodCode="EVN& quot; classCode="OBS"> <templateId root=" 2.16.840.1.964451.10.20.22.4.2" /> <idnullFlavor="NA& quot; /> <code codeSystem="local" code="100.0850& quot; displayName="PLT - PLATELET COUNT" /> < statusCode code="completed" /> <effectiveTime value=& quot;291757616131" /> <value unit="T/MM3" xsi:type ="PQ" value="266" /> <referenceRange> <observationRange> <text>130-400</text> </observationRange> </referenceRange> </ observation> </component> <component> < observation moodCode="EVN" classCode="OBS"> < templateId root="2.16.840.1.603157.10.20.22.4.2" /> < id nullFlavor="NA" /> <code codeSystem="local&quot ; code="100.0950" displayName="MEAN PLATELET VOLUME" /> <statusCode code="completed" /> < effectiveTime value="518812467190" /> <value unit=&quot ;UM3" xsi:type="PQ" value="10.3" /> < referenceRange> <observationRange> <text>9.4-12.4& lt;/text> </observationRange> </referenceRange& gt; </observation> </component><component> <observation moodCode="EVN" classCode="OBS"> < templateId root="2.16.840.1.952075.10.20.22.4.2" /> < id nullFlavor="NA" /> <code codeSystem="local&quot ; code="100.1050" displayName="NEUTROPHILS % (AUTO)&quot ; /> <statusCode code="completed" /> < effectiveTime value="198146370400" /> <value unit=&quot ;%" xsi:type="PQ" value="66.2" /> & lt;interpretationCodecodeSystem="local" code="*" /> <referenceRange> <observationRange> &lt ;text>33-66</text> </observationRange> </ referenceRange> </observation> </component> < component> <observation moodCode="EVN" classCode=" OBS"> <templateId root="2.16.840.1.896940.10.20.22.4.2& quot; /> <id nullFlavor="NA" /> <code codeSystem="local" code="100.1100" displayName=" LYMPHOCYTES % (AUTO)" /> <statusCode code=" completed" /> <effectiveTime value="315921193266" /&gt ; <value unit="%" xsi:type="PQ" value=& quot;20.0" /> <interpretationCode codeSystem="local& quot; code="*" /> <referenceRange> < observationRange> <text>23-45</text> < /observationRange></referenceRange> </observation> & lt;/component> <component> <observation moodCode="EVN& quot; classCode="OBS"> <templateId root=" 2.16.840.1.337701.10.20.22.4.2" /> <id nullFlavor="NA& quot; /> <code codeSystem="local" code="100.1150& quot; displayName="MONOCYTES% (AUTO)" /> < statusCode code="completed" /> <effectiveTime value=& quot;742070989068" /> <value unit="%" xsi: type="PQ" value="6.9" /> <referenceRange> <observationRange> <text>0-9.0</text&gt ; </observationRange> </referenceRange> </ observation> </component> <component> < observation moodCode="EVN" classCode="OBS"> < templateId root="2.16.840.1.810026.10.20.22.4.2" /> < id nullFlavor="NA" /> <code codeSystem="local&quot ; code="100.1200" displayName="EOSINOPHILS % (AUTO)&quot ; /> <statusCode code="completed" /> < effectiveTime value="453224200577" /> <value unit=&quot ;%" xsi:type="PQ" value="4.7" /> & lt;interpretationCode codeSystem="local" code="*" /> <referenceRange> <observationRange> & lt;text>0-4</text> </observationRange> </ referenceRange> </observation> </component> < component> <observation moodCode="EVN" classCode=" OBS"> <templateId root="2.16.840.1.204766.10.20.22.4.2& quot; /> <id nullFlavor="NA" /> <code codeSystem="local" code="100.1250" displayName=" BASOPHILS % (AUTO)" /> <statusCode code=" completed" /> <effectiveTime value="495152978388" /> <value unit="%" xsi:type="PQ" value="0.6" /> <referenceRange> < observationRange> <text>0-2</text> </ observationRange> </referenceRange> </observation&gt ; </component> <component> <observation moodCode ="EVN" classCode="OBS"> <templateId root=& quot;2.16.840.1.803937.10.20.22.4.2" /> <id nullFlavor=&quot ;NA" /> <code codeSystem="local" code=" 100.1275" displayName="IMMATURE GRANULOCYTE% (AUTO)" /&gt ; <statusCode code="completed" /> < effectiveTime value="991944258435" /> <value unit=&quot ;%" xsi:type="PQ" value="1.6" /> & lt;interpretationCode codeSystem="local" code="*" /> <referenceRange> <observationRange> < text>0.0-0.5</text> </observationRange> </ referenceRange> </observation> </component> < component> <observation moodCode="EVN" classCode=" OBS"> <templateId root="2.16.840.1.608882.10.20.22.4.2& quot; /> <id nullFlavor="NA" /> <code codeSystem="local" code="100.1300" displayName=" NEUTROPHILS # (AUTO)" /> <statusCode code="completed& quot; /> <effectiveTime value="311118291775" /> <value unit="T/MM3" xsi:type="PQ" value="6.0& quot; /> <referenceRange> <observationRange> <text>1.8-7.7</text> </observationRange> </referenceRange> </observation> </component&gt ; <component> <observation moodCode="EVN" classCode="OBS"> <templateId root=" 2.16.840.1.737121.10.20.22.4.2" /> <id nullFlavor="NA& quot; /> <code codeSystem="local" code="100.1350& quot; displayName="LYMPHOCYTES # (AUTO)"/> <statusCode code="completed" /> <effectiveTime value=" 681243256524" /> <value unit="T/MM3" xsi:type=& quot;PQ" value="1.8" /> <referenceRange> <observationRange> <text>1-4.8</text> </observationRange> </referenceRange> </ observation> </component> <component> < observation moodCode="EVN" classCode="OBS"> < templateId root="2.16.840.1.685926.10.20.22.4.2" /> < id nullFlavor="NA" /> <code codeSystem="local&quot ; code="100.1400" displayName="MONOCYTES # (AUTO)" /> <statusCode code="completed" /> <effectiveTime value="945145281544" /> <value unit="T/MM3" xsi:type="PQ" value="0.6" /> <referenceRange& gt; <observationRange> <text>0-0.8</text& gt; </observationRange> </referenceRange> </observation> </component> <component> &lt ;observation moodCode="EVN" classCode="OBS"> &lt ;templateId root="2.16.840.1.476071.10.20.22.4.2" /> < id nullFlavor="NA" /> <code codeSystem="local&quot ; code="100.1450" displayName="EOSINOPHILS # (AUTO)" /> <statusCode code="completed" /> < effectiveTime value="218522067553" /> <value unit=&quot ;T/MM3" xsi:type="PQ" value="0.4" /> < referenceRange> <observationRange> <text> 0-0.5</text> </observationRange> </ referenceRange> </observation> </component> < component> <observation moodCode="EVN" classCode=" OBS"> <templateId root="2.16.840.1.771990.10.20.22.4.2& quot; /> <id nullFlavor="NA" /> <code codeSystem="local" code="100.1500" displayName=" BASOPHILS # (AUTO)" /> <statusCode code="completed&quot ; /> <effectiveTime value="571961226263" /> & lt;value unit="T/MM3" xsi:type="PQ" value="0.1" /& gt;<referenceRange> <observationRange> < text>0-0.2</text> </observationRange> </ referenceRange> </observation> </component> < component> <observation moodCode="EVN" classCode=" OBS"> <templateId root="2.16.840.1.833150.10.20.22.4.2& quot; /> <id nullFlavor="NA" /> <code codeSystem="local" code="100.1525" displayName=" IMMATURE GRANULOCYTE # (AUTO)" /> <statusCode code=" completed" /> <effectiveTime value="012535002461" /> <value unit="T/MM3" xsi:type="PQ" value=& quot;0.14" /> <interpretationCode codeSystem="local" code= "*" /> <referenceRange> < observationRange> <text>0.00-0.03</text> </ observationRange> </referenceRange> </observation&gt ; </component> </organizer> </entry> <entry> <organizer moodCode="EVN" classCode="BATTERY"> <templateId root="2.16.840.1.273366.10.20.22.4.1" /> < id nullFlavor="NA" /> <code codeSystem="local" code="LBGM" displayName="L900.0530" /> < statusCode code="completed" /> <component> < observation moodCode="EVN" classCode="OBS"> < templateId root="2.16.840.1.170215.10.20.22.4.2" /> <id nullFlavor="NA" /> <code codeSystem="local" code="850.0100" displayName="Glucometer" /> < statusCode code="completed" /> <effectiveTime value=& quot;755876675164" /> <value unit="mg/dL" xsi:type ="PQ" value="307" /> <referenceRange> <observationRange> <text>65-110</text> </observationRange> </referenceRange> </ observation> </component> </organizer> </entry> < entry> <organizer moodCode="EVN" classCode="BATTERY&quot ;> <templateId root="2.16.840.1.523603.10.20.22.4.1" /> <id nullFlavor="NA" /> <code codeSystem="local& quot; code="LBGM" displayName="L900.0530" /> < statusCode code="completed" /> <component> < observation moodCode="EVN" classCode="OBS"> < templateId root="2.16.840.1.914678.10.20.22.4.2" /> < id nullFlavor="NA" /> <code codeSystem="local&quot ; code="850.0100" displayName="Glucometer" /> & lt;statusCode code="completed" /> <effectiveTime value=" 924761285096" /> <value unit="mg/dL" xsi:type=& quot;PQ" value="203" /> <referenceRange> <observationRange> <text>65-110</text> </observationRange> </referenceRange> </ observation> </component> </organizer> </entry> & lt;entry> <organizer moodCode="EVN" classCode="BATTERY& quot;> <templateId root="2.16.840.1.446929.10.20.22.4.1" /& gt; <id nullFlavor="NA" /> <code codeSystem=" local" code="LBGM" displayName="L900.0530" /> & lt;statusCode code="completed" /> <component> &lt ;observation moodCode="EVN" classCode="OBS"> &lt ;templateId root="2.16.840.1.440434.10.20.22.4.2" /> < id nullFlavor="NA" /> <code codeSystem="local&quot ; code="850.0100" displayName="Glucometer" /> & lt;statusCode code="completed" /> <effectiveTime value= "460417471521" /> <value unit="mg/dL" xsi: type="PQ" value="130" /> <referenceRange> <observationRange> <text>65-110</text&gt ; </observationRange> </referenceRange> & lt;/observation> </component> </organizer> </entry&gt ; <entry> <organizer moodCode="EVN" classCode=" BATTERY"> <templateId root="2.16.840.1.781531.10.20.22.4.1& quot; /> <id nullFlavor="NA" /> <code codeSystem ="local" code="LCMP-A" displayName="L749.2000" /& gt; <statusCode code="completed" /> <component> <observation moodCode="EVN" classCode="OBS"> <templateId root="2.16.840.1.022561.10.20.22.4.2" /> <id nullFlavor="NA" /> <code codeSystem="local " code="908.3031" displayName="NA - Sodium - AMS" /&gt ; <statusCode code="completed" /> < effectiveTime value="692889500582" /> <value unit=&quot ;mEq/L" xsi:type="PQ" value="140" /> < referenceRange> <observationRange> <text>135-144 </text> </observationRange> </referenceRange& gt; </observation> </component> <component> <observation moodCode="EVN" classCode="OBS"> <templateId root="2.16.840.1.405161.10.20.22.4.2" /> <id nullFlavor="NA" /> <code codeSystem=&quot ;local" code="908.3033" displayName="Potassium - AMS" / > <statusCode code="completed" /> < effectiveTime value="307334603626" /> <value unit=&quot ;mEq/L" xsi:type="PQ" value="4.0" /> < referenceRange> <observationRange> <text> 3.5-5.2</text> </observationRange> </ referenceRange> </observation> </component> < component> <observation moodCode="EVN" classCode=" OBS"> <templateId root="2.16.840.1.627049.10.20.22.4.2& quot; /> <id nullFlavor="NA" /> <code codeSystem="local" code="908.3035" displayName=" Chloride- AMS" /> <statusCode code="completed" /& gt; <effectiveTime value="161946466354" /> &lt ;value unit="mEq/L" xsi:type="PQ" value="100" /&gt ; <referenceRange> <observationRange> <text>99-111</text> </observationRange> </referenceRange> </observation> </component> <component> <observation moodCode="EVN" classCode ="OBS"> <templateId root=" 2.16.840.1.597846.10.20.22.4.2" /> <id nullFlavor="NA& quot; /> <code codeSystem="local" code="908.3037& quot; displayName="CO2 - Carbon Dioxide-AMS" /> < statusCode code="completed" /> <effectiveTime value=& quot;025955340079" /> <value unit="mEq/L" xsi:type ="PQ" value="26" /> <referenceRange> <observationRange> <text>22-31</text> </observationRange> </referenceRange> </ observation> </component> <component> < observation moodCode="EVN" classCode="OBS"> < templateId root="2.16.840.1.208490.10.20.22.4.2" /> < id nullFlavor="NA" /> <code codeSystem="local&quot ; code="908.3039" displayName="Anion Gap - AMS" /> <statusCode code="completed" /> <effectiveTime value="860377201560" /> <value unit="mEq/L" xsi:type= "PQ" value="14" /> <referenceRange> <observationRange> <text>3-20</text> & lt;/observationRange> </referenceRange> </ observation> </component> <component> < observation moodCode="EVN" classCode="OBS"> < templateId root="2.16.840.1.539991.10.20.22.4.2" /> <id nullFlavor="NA" /> <code codeSystem="local" code="908.3041" displayName="BUN - Blood Urea Nitrogen -AMS&quot ; /> <statusCode code="completed" /> < effectiveTime value="245192594949" /> <value unit="mg/dL& quot; xsi:type="PQ" value="32" /> < interpretationCode codeSystem="local" code="*" /> <referenceRange> <observationRange> < text>10-20</text> </observationRange> </ referenceRange> </observation> </component> < component> <observation moodCode="EVN" classCode=" OBS"> <templateId root="2.16.840.1.746171.10.20.22.4.2& quot; /> <id nullFlavor="NA" /> <code codeSystem="local" code="908.3043" displayName=" Creatinine - AMS" /> <statusCode code="completed" /> <effectiveTime value="403102805355" /> & lt;value unit="mg/dL" xsi:type="PQ" value="0.92" / > <referenceRange> <observationRange> < text>0.57-1.11</text> </observationRange> &lt ;/referenceRange> </observation> </component>< component> <observation moodCode="EVN" classCode=" OBS"> <templateId root="2.16.840.1.658927.10.20.22.4.2" /> <id nullFlavor="NA" /> <code codeSystem="local" code="908.3045" displayName=" Glomerular Filtration Rate-AMS" /> <statusCode code=" completed" /> <effectiveTime value="653839702364" /> <value unit="mL/min" xsi:type="PQ" value=& quot;60" /> <referenceRange> <observationRange& gt; <text>>60</text> </ observationRange> </referenceRange> </observation&gt ; </component> <component> <observation moodCode ="EVN" classCode="OBS"> <templateId root=& quot;2.16.840.1.217078.10.20.22.4.2" /> <id nullFlavor=&quot ;NA" /> <code codeSystem="local" code=" 908.3047" displayName="Glucose - AMS" /> < statusCode code="completed" /> <effectiveTime value=&quot ;597510306051" /> <value unit="mg/dL" xsi:type=& quot;PQ" value="132" /> <interpretationCode codeSystem="local" code="*" /> < referenceRange> <observationRange> <text> 70-99</text> </observationRange> </ referenceRange> </observation> </component> < component> <observation moodCode="EVN" classCode="OBS&quot ;> <templateId root="2.16.840.1.600174.10.20.22.4.2" /& gt; <id nullFlavor="NA" /> <code codeSystem=& quot;local" code="908.3054" displayName="Calcium - AMS&quot ; /> <statusCode code="completed" /> < effectiveTime value="087938155518" /> <value unit=&quot ;mg/dL" xsi:type="PQ" value="9.6" /> < referenceRange> <observationRange> <text>8.4-10.2 </text> </observationRange> </referenceRange& gt; </observation> </component> <component> <observation moodCode="EVN" classCode="OBS"> <templateId root="2.16.840.1.260092.10.20.22.4.2" /> <id nullFlavor="NA" /> <code codeSystem=&quot ;local" code="908.3072" displayName="Bilirubin,Total - AMS& quot; /> <statusCode code="completed" /> & lt;effectiveTime value="025650044686" /> <value unit=& quot;mg/dL" xsi:type="PQ" value="0.3" /> & lt;referenceRange> <observationRange> <text>0.2-1.2& lt;/text> </observationRange> </referenceRange& gt; </observation> </component> <component> <observation moodCode="EVN" classCode="OBS"> <templateId root="2.16.840.1.259961.10..22.4.2" /> <id nullFlavor="NA" /> <code codeSystem=&quot ;local" code="908.3078" displayName="Alkaline Phosphatase - AMS" /> <statusCode code="completed" /> <effectiveTime value="064062123695" /> <value unit="U/L" xsi:type="PQ" value="42" /> <referenceRange> <observationRange> < text>40-150</text> </observationRange> </ referenceRange> </observation> </component> < component> <observation moodCode="EVN" classCode=" OBS"> <templateId root="2.16.840.1.317709.10.20.22.4.2& quot; /> <id nullFlavor="NA" /> <code codeSystem="local" code="908.3080" displayName="AST - Aspartate Amino Transfer" /> <statusCode code=" completed" /> <effectiveTime value="617886781790" /> <value unit="U/L" xsi:type="PQ" value=& quot;15" /> <referenceRange> < observationRange> <text>5-34</text> </ observationRange> </referenceRange> </observation> </component> <component> <observation moodCode=& quot;EVN" classCode="OBS"> <templateId root=" [id number]" /> <id nullFlavor="NA& quot; /> <code codeSystem="local" code="908.3082& quot; displayName="ALT - AMS" /> <statusCode code=&quot ;completed" /> <effectiveTime value="[id number]" /> <value unit="U/L" xsi:type="PQ" value=& quot;28" /> <referenceRange> <observationRange& gt; <text>0-55</text> </observationRange& gt; </referenceRange> </observation> </ component> <component> <observation moodCode="EVN& quot; classCode="OBS"> <templateId root=" [id number]" /> <id nullFlavor="NA& quot; /> <code codeSystem="local" code="908.3084& quot; displayName="TP - Total Protein - AMS" /> < statusCode code="completed" /> <effectiveTime value=& quot;228549717908" /> <value unit="g/dL" xsi:type=& quot;PQ" value="6.7" /> <referenceRange> <observationRange> <text>6.0-7.6</text> </observationRange> </referenceRange> </ observation> </component> <component> < observation moodCode="EVN" classCode="OBS"> < templateId root="2.16.840.1.103284.10.20.22.4.2" /> < id nullFlavor="NA" /> <code codeSystem="local&quot ; code="908.3086" displayName="Albumin Level - AMS" /> <statusCode code="completed" /> < effectiveTime value="409132089779" /> <value unit=&quot ;g/dL" xsi:type="PQ" value="3.7" /> < referenceRange> <observationRange> <text> 3.4-4.8</text> </observationRange> </referenceRange > </observation> </component> <component> <observation moodCode="EVN" classCode="OBS"> <templateId root="2.16.840.1.493489.10.20.22.4.2" /> & lt;id nullFlavor="NA" /> <code codeSystem="local& quot; code="908.3088" displayName="Globulin - AMS" /> <statusCode code="completed" /> < effectiveTime value="442155780340" /> <value unit=&quot ;g/dL" xsi:type="PQ" value="3.0" /> < referenceRange> <observationRange> <text> 1.8-4.0</text> </observationRange> </ referenceRange> </observation> </component> </ organizer> </entry> <entry> <organizer moodCode="EVN " classCode="BATTERY"> <templateId root=" 2.16.840.1.504819.10.20.22.4.1" /> <id nullFlavor="NA&quot ; /> <code codeSystem="local" code="LMAG-A" displayName="L908.3066" /> <statusCode code="completed "/> <component> <observation moodCode="EVN& quot; classCode="OBS"> <templateId root=" 2.16.840.1.401737.10.20.22.4.2" /> <id nullFlavor="NA& quot; /> <code codeSystem="local" code="908.3066& quot; displayName="MAG - Magnesium - AMS" /> < statusCode code="completed" /> <effectiveTime value=& quot;711702997905" /> <value unit="mg/dL" xsi:type ="PQ" value="1.7" /> <referenceRange> <observationRange> <text>1.6-2.6</text> </observationRange> </referenceRange> </ observation> </component> </organizer> </entry> & lt;entry> <organizer moodCode="EVN" classCode="BATTERY& quot;> <templateId root="2.16.840.1.436876.10.20.22.4.1" /& gt; <id nullFlavor="NA" /> <code codeSystem=" local" code="LUAMIC-MK" displayName="L200.0052" /> <statusCode code="completed" /> <component> <observation moodCode="EVN" classCode="OBS"> <templateId root="2.16.840.1.110689.10.20.22.4.2" /> <idnullFlavor="NA" /> <code codeSystem=" local" code="200.0152" displayName="Specimen Type, Urine - MK" /> <statusCode code="completed" /> <effectiveTime value="408253243641" /> <value unit ="" xsi:type="PQ" value="Urine, Clean Catch" /&gt ; <referenceRange> <observationRange> <text>NRG</text> </observationRange> </ referenceRange> </observation> </component> < component> <observation moodCode="EVN" classCode=" OBS"> <templateId root="2.16.840.1.808779.10..22.4.2& quot; /> <id nullFlavor="NA" /> <code codeSystem="local" code="200.0202" displayName="Color, Urine - MK" /> <statusCode code="completed" /> <effectiveTime value="983960650248" /> < value unit="" xsi:type="PQ" value="YELLOW" /> <referenceRange> <observationRange> & lt;text>YELLOW</text> </observationRange> &lt ;/referenceRange> </observation> </component> &lt ;component> <observation moodCode="EVN" classCode=" OBS"> <templateId root="2.16.840.1.624183.10..22.4.2& quot; /> <id nullFlavor="NA" /> <code codeSystem="local" code="200.0302" displayName="Clarity ,Urine - MK" /> <statusCode code="completed" /&gt ; <effectiveTime value="888736856296" /> < value unit="" xsi:type="PQ" value="CLOUDY" /> <referenceRange> <observationRange> <text>NRG</text> </observationRange> &lt ;/referenceRange> </observation> </component> & lt;component> <observation moodCode="EVN" classCode=&quot ;OBS"> <templateId root="2.16.840.1.343651.10.20.22.4.2 " /> <id nullFlavor="NA" /> <code codeSystem="local" code="200.0327" displayName=" Specific [place],Urine - MK" /> <statusCode code=" completed" /> <effectiveTime value="623710689694" /&gt ; <value unit="" xsi:type="PQ" value="1.015 " /> <referenceRange> <observationRange&gt ; <text>1.015-1.025</text> </ observationRange> </referenceRange> </observation&gt ; </component> <component> <observation moodCode ="EVN" classCode="OBS"> <templateId root=& quot;2.16.840.1.312181...22.4.2" /> <id nullFlavor=&quot ;NA" /> <code codeSystem="local" code=" 200.0352" displayName="PH,Urine - MK" /> < statusCode code="completed" /> <effectiveTime value=& quot;553083427002" /> <value unit="" xsi:type=& quot;PQ" value="5.5" /> <referenceRange> <observationRange> <text>5.0-8.0</text> </observationRange> </referenceRange> </ observation> </component> <component><observation moodCode="EVN" classCode="OBS"> <templateId root="2.16.840.1.918537.10.20.22.4.2" /> <id nullFlavor ="NA" /> <code codeSystem="local" code=" 200.0412" displayName="Leukocyte Esterase,Urine - MK" /> <statusCode code="completed" /> <effectiveTime value="418041401087" /> <value unit="" xsi: type="PQ" value="2+" /> <referenceRange> <observationRange> <text>NEGATIVE</text& gt; </observationRange> </referenceRange> </observation> </component> <component> &lt ;observation moodCode="EVN" classCode="OBS"> &lt ;templateId root="2.16.840.1.117597.10..22.4.2" /> < id nullFlavor="NA" /> <code codeSystem="local" code=& quot;200.0422" displayName="Nitrate,Urine - MK" /> & lt;statusCode code="completed" /> <effectiveTime value= "233751803795" /> <value unit="" xsi:type=& quot;PQ" value="NEGATIVE" /> <referenceRange> <observationRange> <text>NEGATIVE</text> </observationRange> </referenceRange> </ observation> </component> <component> < observation moodCode="EVN" classCode="OBS"> < templateId root="2.16.840.1.289084.10..22.4.2" /> < id nullFlavor="NA" /> <code codeSystem="local&quot ; code="200.0452" displayName="Protein,Urine - Dipstick - MK&quot ; /> <statusCode code="completed" /> < effectiveTime value="718805380216" /> <value unit=&quot ;" xsi:type="PQ" value="NEGATIVE" /> < referenceRange> <observationRange> <text> NEGATIVE</text> </observationRange> </ referenceRange> </observation> </component> < component> <observation moodCode="EVN" classCode=" OBS"> <templateId root="2.16.840.1.260651.10.20.22.4.2& quot; /> <id nullFlavor="NA" /> <code codeSystem="local" code="200.0502" displayName="Glucose ,Urine - Dipstick - MK" /> <statusCode code="completed& quot; /> <effectiveTime value="732893983143" /> <value unit="" xsi:type="PQ" value="NEGATIVE& quot; /> <referenceRange> <observationRange> <text>NEGATIVE</text> </observationRange > </referenceRange> </observation> </ component> <component> <observation moodCode="EVN& quot; classCode="OBS"> <templateId root=" 2.16.840.1.197201.10.20.22.4.2" /> <id nullFlavor="NA& quot; /> <code codeSystem="local" code="200.0602" displayName="Ketones,Urine -Dipstick - MK" /> < statusCode code="completed" /> <effectiveTime value=& quot;814805836488" /> <value unit="" xsi:type=& quot;PQ" value="NEGATIVE" /> <referenceRange> <observationRange> <text>NEGATIVE</text& gt; </observationRange> </referenceRange> </observation> </component> <component> < observation moodCode="EVN" classCode="OBS"> < templateId root="2.16.840.1.559757.10.20.22.4.2" /> < id nullFlavor="NA" /> <code codeSystem="local" code="200.0742" displayName="Urobilinogen,Urine - MK" /> <statusCode code="completed" /> < effectiveTime value="441096248501" /> <value unit=&quot ;EU/DL" xsi:type="PQ" value="0.2" /> < referenceRange> <observationRange> <text> NORMAL</text> </observationRange> </ referenceRange> </observation> </component> < component> <observation moodCode="EVN" classCode=" OBS"> <templateId root="2.16.840.1.656762.10.20.22.4.2& quot; /> <id nullFlavor="NA" /> <code codeSystem="local" code="200.0752" displayName=" Bilirubin,Urine- Dipstick -MK" /> <statusCode code=" completed" /> <effectiveTime value="151506178774" /> <value unit="" xsi:type="PQ" value=" NEGATIVE" /> <referenceRange> < observationRange> <text>NEGATIVE</text> & lt;/observationRange> </referenceRange> </ observation> </component> <component> < observation moodCode="EVN" classCode="OBS"> < templateId root="2.16.840.1.013307.10.20.22.4.2" /> < id nullFlavor="NA" /> <code codeSystem="local" code="200.0827" displayName="Occult Blood,Towwy-Vgdnjibh-TF&quot ; /> <statusCode code="completed" /> < effectiveTime value="574258658832" /> <value unit=&quot ;" xsi:type="PQ" value="TRACE-INTACT" /> & lt;referenceRange> <observationRange> <text& gt;NEGATIVE</text> </observationRange> </ referenceRange> </observation> </component> </ organizer> </entry> <entry> <organizer moodCode="EVN " classCode="BATTERY"> <templateId root=" 2.16.840.1.596101.10.20.22.4.1" /> <id nullFlavor="NA&quot ; /> <code codeSystem="local" code="LUAMIC-MK" displayName="L200.0052" /> <statusCode code="completed " /> <component> <observation moodCode="EVN& quot; classCode="OBS"> <templateId root=" 2.16.840.1.752581.10..22.4.2" /> <id nullFlavor="NA& quot; /> <code codeSystem="local" code="200.0152& quot; displayName="Specimen Type, Urine - MK" /> < statusCode code="completed" /> <effectiveTime value=" 905762248783" /> <value unit="" xsi:type="PQ& quot; value="Urine, Clean Catch" /> <referenceRange&gt ; <observationRange> <text>NRG</text> </observationRange> </referenceRange> </ observation> </component> <component> < observation moodCode="EVN" classCode="OBS"> < templateId root="2.16.840.1.733228.10.20.22.4.2" /> < id nullFlavor="NA" /> <code codeSystem="local&quot ; code="200.0202" displayName="Color, Urine - MK" /> <statusCode code="completed" /> <effectiveTime value ="746233437756" /> <value unit="" xsi:type=& quot;PQ" value="YELLOW" /> <referenceRange> <observationRange> <text>YELLOW</text> </observationRange> </referenceRange> </ observation> </component> <component> < observation moodCode="EVN" classCode="OBS"> < templateId root="2.16.840.1.320119.10.20.22.4.2" /> < id nullFlavor="NA" /> <code codeSystem="local&quot ; code="200.0302" displayName="Clarity,Urine - MK" /> <statusCode code="completed" /> < effectiveTime value="665040848582" /> <value unit=&quot ;" xsi:type="PQ" value="CLOUDY" /> < referenceRange> <observationRange> <text> NRG</text> </observationRange> </ referenceRange> </observation> </component> < component> <observation moodCode="EVN" classCode=" OBS"> <templateId root="2.16.840.1.580705.10.20.22.4.2& quot; /> <id nullFlavor="NA" /> <code codeSystem ="local" code="200.0327" displayName="Specific [place], Urine - MK" /> <statusCode code="completed" /> <effectiveTime value="979551664036" /> < value unit="" xsi:type="PQ" value="1.015" /> <referenceRange> <observationRange> & lt;text>1.015-1.025</text> </observationRange> </referenceRange> </observation> </component> <component><observation moodCode="EVN" classCode=" OBS"> <templateId root="2.16.840.1.774186.10.20.22.4.2& quot; /> <id nullFlavor="NA" /> <code codeSystem="local" code="200.0352" displayName="PH, Urine - MK" /> <statusCode code="completed" /> <effectiveTime value="468794712037" /> < value unit="" xsi:type="PQ" value="5.5" /> <referenceRange> <observationRange> & lt;text>5.0-8.0</text> </observationRange> & lt;/referenceRange> </observation> </component> <component> <observation moodCode="EVN" classCode=& quot;OBS"> <templateId root=" 2.16.840.1.184468.10..22.4.2" /> <id nullFlavor="NA& quot; /> <code codeSystem="local" code="200.0412& quot; displayName="Leukocyte Esterase,Urine - MK" /> < statusCode code="completed" /> <effectiveTime value=& quot;621252847455" /> <value unit="" xsi:type=& quot;PQ" value="2+" /> <referenceRange> <observationRange> <text>NEGATIVE</text> </observationRange> </referenceRange> </ observation> </component> <component> < observation moodCode="EVN" classCode="OBS"> < templateId root="2.16.840.1.306378.10.20.22.4.2" /> < id nullFlavor="NA" /> <code codeSystem="local&quot ; code="200.0422" displayName="Nitrate,Urine - MK" /> <statusCode code="completed" /> <effectiveTime value="430282333791" /> <value unit="" xsi: type="PQ" value="NEGATIVE" /> <referenceRange > <observationRange> <text>NEGATIVE</ text> </observationRange> </referenceRange> </observation> </component> <component> <observation moodCode="EVN" classCode="OBS"> <templateId root="2.16.840.1.297402.10.20.22.4.2" /> <id nullFlavor="NA" /> <code codeSystem=" local" code="200.0452" displayName="Protein,Urine - Dipstick - MK" /> <statusCode code="completed" /&gt ; <effectiveTime value="199344336742" /> < value unit="" xsi:type="PQ" value="NEGATIVE" /&gt ; <referenceRange> <observationRange> <text>NEGATIVE</text> </observationRange> </referenceRange> </observation> </component> <component> <observation moodCode="EVN" classCode=& quot;OBS"> <templateId root=" 2.16.840.1.664596.10..22.4.2" /> <id nullFlavor="NA& quot; /> <code codeSystem="local" code="200.0502& quot; displayName="Glucose,Urine - Dipstick - MK" /> < statusCode code="completed" /> <effectiveTime value=& quot;564983539441" /> <value unit="" xsi:type=& quot;PQ" value="NEGATIVE" /> <referenceRange> <observationRange> <text>NEGATIVE</text& gt; </observationRange> </referenceRange> </observation> </component> <component> < observation moodCode="EVN" classCode="OBS"> < templateId root="2.16.840.1.839270.10..22.4.2" /> < id nullFlavor="NA" /> <code codeSystem="local&quot ; code="200.0602" displayName="Ketones,Urine - Dipstick - MK&quot ; /> <statusCode code="completed" /> < effectiveTime value="945549241428" /> <value unit=&quot ;" xsi:type="PQ" value="NEGATIVE" /> < referenceRange> <observationRange> <text>NEGATIVE</ text> </observationRange> </referenceRange> </observation> </component> <component> <observation moodCode="EVN" classCode="OBS"> <templateId root="2.16.840.1.824419.10.20.22.4.2" /> <id nullFlavor="NA" /> <code codeSystem=" local" code="200.0742" displayName="Urobilinogen,Urine - MK& quot;/> <statusCode code="completed" /> &lt ;effectiveTime value="732482753137" /> <value unit=& quot;EU/DL" xsi:type="PQ" value="0.2" /> & lt;referenceRange> <observationRange> <text& gt;NORMAL</text> </observationRange> </ referenceRange> </observation> </component> < component> <observation moodCode="EVN" classCode=" OBS"> <templateId root="2.16.840.1.320101.10.20.22.4.2& quot; /> <id nullFlavor="NA" /> <code codeSystem="local" code="200.0752" displayName=" Bilirubin,Urine - Dipstick -MK" /> <statusCode code=" completed" /> <effectiveTime value="457510045383" /> <value unit="" xsi:type="PQ" value=" NEGATIVE" /> <referenceRange> < observationRange> <text>NEGATIVE</text> </ observationRange> </referenceRange> </observation&gt ; </component> <component> <observation moodCode ="EVN" classCode="OBS"> <templateId root=& quot;2.16.840.1.518916.10.20.22.4.2" /> <id nullFlavor=&quot ;NA" /> <code codeSystem="local" code=" 200.0827" displayName="Occult Blood,Lqjbb-Jmtqopyj-IB" /> <statusCode code="completed" /> < effectiveTime value="497505318023" /> <value unit=&quot ;" xsi:type="PQ" value="TRACE-INTACT" /> & lt;referenceRange> <observationRange> <text> NEGATIVE</text> </observationRange> </ referenceRange> </observation> </component> < component> <observation moodCode="EVN" classCode=" OBS"> <templateId root="2.16.840.1.131871.10.20.22.4.2& quot; /> <id nullFlavor="NA" /> <code codeSystem="local" code="200.1002" displayName="RBC, Urine - MK" /> <statusCode code="completed" /> <effectiveTime value="422367035647" /> < value unit="/HPF" xsi:type="PQ" value="None Seen" /> <referenceRange> <observationRange> & lt;text>0-3</text> </observationRange> </ referenceRange> </observation> </component> < component> <observationmoodCode="EVN" classCode="OBS "> <templateId root="2.16.840.1.798620.10.20.22.4.2& quot; /> <id nullFlavor="NA" /> <code codeSystem="local" code="200.1052" displayName="WBC, Urine - MK" /> <statusCode code="completed" /> <effectiveTime value="717644683429" /> <value unit="/HPF" xsi:type="PQ" value="20-30" /> <interpretationCode codeSystem="local" code="*" /& gt; <referenceRange> <observationRange> & lt;text>0-5</text> </observationRange> </ referenceRange> </observation> </component> < component> <observation moodCode="EVN" classCode=" OBS"> <templateId root="2.16.840.1.044316.10.20.22.4.2& quot; /> <id nullFlavor="NA" /> <code codeSystem="local" code="200.1102" displayName="WBC Clumps,Urine - MK" /> <statusCode code="completed&quot ; /> <effectiveTime value="914405125856" /> < value unit="" xsi:type="PQ" value="Few" /> <referenceRange> <observationRange> & lt;text>NRG</text> </observationRange> </ referenceRange> </observation> </component> < component> <observation moodCode="EVN" classCode=" OBS"> <templateId root="2.16.840.1.274351.10..22.4.2& quot; /> <id nullFlavor="NA" /> <code codeSystem="local" code="200.1152" displayName=" Squamous Epithelial Cell,Ur-MK" /> <statusCode code=" completed" /> <effectiveTime value="648064468465" /> <value unit="" xsi:type="PQ" value=" None seen" /> <referenceRange> < observationRange> <text>NRG</text> </ observationRange> </referenceRange> </observation&gt ; </component> <component> <observation moodCode ="EVN" classCode="OBS"> <templateId root=& quot;2.16.840.1.078306.10.20.22.4.2" /> <id nullFlavor=&quot ;NA" /> <code codeSystem="local" code=" 200.1202" displayName="Transitional Epi Cells,Ur-MK" /> <statusCode code="completed" /> <effectiveTime value="032885765112" /> <value unit="/HPF" xsi:type="PQ" value="None seen" /> < referenceRange> <observationRange> <text> NRG</text> </observationRange> </referenceRange> </observation> </component> <component> <observation moodCode="EVN" classCode="OBS"> <templateId root="2.16.840.1.047689.10.20.22.4.2" /> < id nullFlavor="NA" /> <code codeSystem="local&quot ; code="200.1252" displayName="Renal Epithelial Cells,Ur-MK&quot ; /> <statusCode code="completed" /> < effectiveTime value="127102437222" /> <value unit=&quot ;/HPF" xsi:type="PQ" value="None seen" /> & lt;referenceRange> <observationRange> <text& gt;NRG</text> </observationRange> </ referenceRange> </observation> </component> < component> <observation moodCode="EVN" classCode=" OBS"> <templateId root="2.16.840.1.648406.10.20.22.4.2& quot; /> <id nullFlavor="NA" /> <code codeSystem="local" code="200.1702" displayName=" Amorphous Sediment,Urine-MK" /> <statusCode code=" completed" /> <effectiveTime value="289551246686" /> <value unit="" xsi:type="PQ" value="Few" /> <referenceRange> <observationRange> <text>NRG</text></observationRange> </ referenceRange> </observation> </component> < component> <observation moodCode="EVN" classCode=" OBS"> <templateId root="2.16.840.1.575732.10.20.22.4.2& quot; /> <id nullFlavor="NA" /> <code codeSystem="local" code="200.1752" displayName=" Bacteria,Urine-MK" /> <statusCode code="completed&quot ; /> <effectiveTime value="505877216537" /> <value unit="" xsi:type="PQ" value="3+" /&gt ; <interpretationCode codeSystem="local" code="*&quot ; /> <referenceRange> <observationRange> <text>NEGATIVE</text> </observationRange&gt ; </referenceRange> </observation> </component& gt; <component> <observation moodCode="EVN" classCode="OBS"> <templateId root=" 2.16.840.1.605105.10.20.22.4.2" /> <id nullFlavor="NA& quot;/> <code codeSystem="local" code="200.2602& quot; displayName="Culture Indicated,Ur-UAMIC-MK" /> < statusCode code="completed" /> <effectiveTime value=" 730004078006" /> <value unit="" xsi:type="PQ& quot; value="Cult reflexed &setup" /> < referenceRange> <observationRange> <text> NRG</text> </observationRange> </ referenceRange> </observation> </component> </ organizer> </entry> <entry> <organizer moodCode="EVN " classCode="BATTERY"> <templateId root=" 2.16.840.1.776744.10.20.22.4.1" /> <id nullFlavor="NA&quot ; /> <code codeSystem="local" code="MCUUR-A" displayName="M750.1005" /> <statusCode code="completed " /> <component> <observation moodCode="EVN& quot; classCode="OBS"> <templateId root=" 2.16.840.1.070903.10.20.22.4.2" /> <id nullFlavor="NA& quot; /> <code codeSystem="local" code="950.1630& quot; displayName="Urine Culture - AMS" /> <statusCode code="completed" /> <effectiveTime value=" 687520420992" /> <value unit="" xsi:type="PQ& quot; value=" Source: Urine Collected: 10:46 " /> <referenceRange> < observationRange> <text>NRG</text> </ observationRange> </referenceRange> </observation&gt ; </component> </organizer> </entry> <entry> <organizer moodCode="EVN" classCode="BATTERY"> <templateId root="2.16.840.1.281206.10.20.22.4.1" /> < id nullFlavor="NA" /> <code codeSystem="local" code="LUAMIC-MK" displayName="L200.0052" /> < statusCode code="completed" /> <component> < observation moodCode="EVN" classCode="OBS"> < templateId root="2.16.840.1.469112.10.20.22.4.2" /> < id nullFlavor="NA" /> <code codeSystem="local&quot ; code="200.0152" displayName="Specimen Type, Urine - MK" /& gt; <statusCode code="completed" /> < effectiveTime value="398866204605" /> <value unit=&quot ;" xsi:type="PQ" value="Urine, Clean Catch" /> <referenceRange> <observationRange> &lt ;text>NRG</text> </observationRange> </ referenceRange> </observation> </component> < component> <observation moodCode="EVN" classCode=" OBS"> <templateId root="2.16.840.1.897222.10.20.22.4.2& quot; /> <id nullFlavor="NA" /><code codeSystem=& quot;local" code="200.0202" displayName="Color, Urine - MK& quot; /> <statusCode code="completed" /> & lt;effectiveTime value="809820898829" /> <value unit=& quot;" xsi:type="PQ" value="YELLOW" /> < referenceRange> <observationRange> <text>YELLOW</ text> </observationRange> </referenceRange> </observation> </component> <component> <observationmoodCode="EVN" classCode="OBS"> <templateId root="2.16.840.1.852441.10.20.22.4.2" /> <id nullFlavor="NA" /> <code codeSystem=" local" code="200.0302" displayName="Clarity,Urine - MK&quot ; /> <statusCode code="completed" /> < effectiveTime value="026238194651" /> <value unit=&quot ;" xsi:type="PQ" value="CLEAR" /> < referenceRange> <observationRange> <text> NRG</text> </observationRange> </ referenceRange> </observation> </component> < component> <observation moodCode="EVN" classCode=" OBS"> <templateId root="2.16.840.1.688638.10.20.22.4.2& quot; /> <id nullFlavor="NA" /> <code codeSystem="local" code="200.0327" displayName=" Specific [place],Urine - MK" /> <statusCode code="completed& quot; /> <effectiveTime value="779728035894" /> <value unit="" xsi:type="PQ" value="1.020&quot ; /> <referenceRange> <observationRange> <text>1.015-1.025</text> </observationRange& gt; </referenceRange> </observation> </ component> <component> <observation moodCode="EVN& quot; classCode="OBS"> <templateId root=" 2.16.840.1.317315.10.20.22.4.2" /> <id nullFlavor="NA& quot; /> <code codeSystem="local" code="200.0352& quot; displayName="PH,Urine - MK" /> <statusCode code=& quot;completed" /> <effectiveTime value="076366466043& quot; /> <value unit="" xsi:type="PQ" value=& quot;5.5" /> <referenceRange> < observationRange> <text>5.0-8.0</text> & lt;/observationRange> </referenceRange> </ observation> </component> <component> < observation moodCode="EVN" classCode="OBS"> < templateId root="2.16.840.1.236896.10.20.22.4.2" /> < id nullFlavor="NA" /> <code codeSystem="local&quot ; code="200.0412" displayName="Leukocyte Esterase,Urine - MK&quot ; /> <statusCode code="completed" /> < effectiveTime value="088971718520" /> <value unit=" " xsi:type="PQ" value="NEGATIVE" /> < referenceRange> <observationRange> <text> NEGATIVE</text> </observationRange> </ referenceRange> </observation> </component> < component> <observation moodCode="EVN" classCode=" OBS"> <templateId root="2.16.840.1.772626.10.20.22.4.2& quot; /> <id nullFlavor="NA" /> <code codeSystem="local" code="200.0422" displayName="Nitrate ,Urine - MK" /> <statusCode code="completed" /&gt ; <effectiveTime value="616471206012" /> <value unit="" xsi:type="PQ" value="NEGATIVE" /> <referenceRange> <observationRange> &lt ;text>NEGATIVE</text> </observationRange> < /referenceRange> </observation> </component> < component> <observation moodCode="EVN" classCode=" OBS"> <templateId root="2.16.840.1.398709.10.20.22.4.2& quot; /> <id nullFlavor="NA" /> <code codeSystem="local" code="200.0452" displayName="Protein ,Urine - Dipstick - MK" /> <statusCode code="completed& quot; /> <effectiveTime value="421356916898" /> <value unit="" xsi:type="PQ" value="1+" /&gt ; <referenceRange> <observationRange> <text>NEGATIVE</text> </observationRange> </referenceRange> </observation></component> &lt ;component> <observation moodCode="EVN" classCode=" OBS"> <templateId root="2.16.840.1.530009.10.20.22.4.2& quot; /> <id nullFlavor="NA" /> <code codeSystem="local" code="200.0502" displayName="Glucose ,Urine - Dipstick - MK" /> <statusCode code="completed& quot; /> <effectiveTime value="993939650359" /> & lt;value unit="" xsi:type="PQ" value="NEGATIVE" /& gt; <referenceRange> <observationRange> <text>NEGATIVE</text> </observationRange> </referenceRange> </observation> </component&gt ; <component> <observation moodCode="EVN" classCode="OBS"> <templateId root=" 2.16.840.1.306242.10..22.4.2" /> <id nullFlavor="NA& quot; /> <code codeSystem="local" code="200.0602& quot; displayName="Ketones,Urine - Dipstick - MK" /> < statusCode code="completed" /> <effectiveTime value=& quot;009263800397" /> <value unit="" xsi:type=" PQ" value="TRACE" /> <referenceRange> <observationRange> <text>NEGATIVE</text> </observationRange> </referenceRange> </ observation> </component> <component> < observation moodCode="EVN" classCode="OBS"> < templateId root="2.16.840.1.230714.10..22.4.2" /> < id nullFlavor="NA" /> <code codeSystem="local&quot ; code="200.0742" displayName="Urobilinogen,Urine - MK" /&gt ; <statusCode code="completed" /> < effectiveTime value="184764787170" /> <value unit="EU/DL& quot; xsi:type="PQ" value="0.2" /> < referenceRange> <observationRange> <text> NORMAL</text> </observationRange> </ referenceRange> </observation> </component> < component> <observation moodCode="EVN" classCode=" OBS"> <templateId root="2.16.840.1.660426.10.20.22.4.2& quot; /> <id nullFlavor="NA" /> <code codeSystem="local" code="200.0752" displayName=" Bilirubin,Urine - Dipstick -MK" /> <statusCode code=" completed" /> <effectiveTime value="316769237513" /> <value unit="" xsi:type="PQ" value=" NEGATIVE" /> <referenceRange> < observationRange> <text>NEGATIVE</text> & lt;/observationRange> </referenceRange> </ observation> </component> <component> < observation moodCode="EVN" classCode="OBS"> < templateId root="2.16.840.1.569742.10.20.22.4.2" /> < id nullFlavor="NA" /> <code codeSystem="local&quot ; code="200.0827" displayName="Occult Blood,Lglye-Cfrsckfb-AM& quot; /> <statusCode code="completed" /> & lt;effectiveTime value="800668571086" /> <value unit=& quot;" xsi:type="PQ" value="NEGATIVE" /> < referenceRange> <observationRange> <text> NEGATIVE</text> </observationRange> </ referenceRange> </observation> </component> < component> <observation moodCode="EVN"classCode="OBS "> <templateId root="2.16.840.1.807088.10.20.22.4.2& quot; /> <id nullFlavor="NA" /> <code codeSystem="local" code="200.1002" displayName="RBC, Urine - MK" /> <statusCode code="completed" /> <effectiveTime value="883890151095" /><value unit=& quot;/HPF" xsi:type="PQ" value="None Seen" /> <referenceRange> <observationRange> < text>0-3</text> </observationRange> </ referenceRange> </observation></component> < component> <observation moodCode="EVN" classCode=" OBS"> <templateId root="2.16.840.1.804400.10.20.22.4.2& quot; /> <id nullFlavor="NA" /> <code codeSystem="local" code="200.1052" displayName="WBC, Urine - MK" /> <statusCode code="completed" /> <effectiveTime value="114281263389" /> < value unit="/HPF" xsi:type="PQ" value="None Seen" /> <referenceRange> <observationRange> <text>0-5</text> </observationRange> </referenceRange> </observation> </component> <component> <observation moodCode="EVN" classCode="OBS"> <templateId root=" 2.16.840.1.091681.10.20.22.4.2" /> <id nullFlavor="NA& quot; /> <code codeSystem="local" code="200.1102& quot; displayName="WBC Clumps,Urine - MK" /> < statusCode code="completed" /> <effectiveTime value=& quot;652669308197" /> <value unit="" xsi:type=& quot;PQ" value="None Seen" /> <referenceRange> <observationRange> <text>NRG</text> </observationRange> </referenceRange> &lt ;/observation> </component> <component> < observation moodCode="EVN" classCode="OBS"> < templateId root="2.16.840.1.386752.10.20.22.4.2" /> < id nullFlavor="NA" /> <code codeSystem="local&quot ; code="200.1152" displayName="Squamous Epithelial Cell,Ur-MK& quot; /> <statusCode code="completed" /> & lt;effectiveTime value="862581897006" /> <value unit=& quot;" xsi:type="PQ" value="None seen" /> & lt;referenceRange> <observationRange> <text& gt;NRG</text> </observationRange> </ referenceRange> </observation> </component> < component> <observation moodCode="EVN" classCode=" OBS"> <templateId root="2.16.840.1.581237.10.20.22.4.2& quot; /> <id nullFlavor="NA" /> <code codeSystem="local" code="200.1202" displayName=" Transitional Epi Cells,Ur-MK" /> <statusCode code=" completed" /> <effectiveTime value="183503815543" /> <value unit="/HPF" xsi:type="PQ" value=& quot;None seen" /> <referenceRange> < observationRange> <text>NRG</text> </ observationRange> </referenceRange> </observation&gt ; </component> <component> <observation moodCode ="EVN" classCode="OBS"> <templateId root=& quot;2.16.840.1.255783.10.20.22.4.2" /> <id nullFlavor=&quot ;NA" /> <code codeSystem="local" code=" 200.1252" displayName="Renal Epithelial Cells,Ur-MK" /> <statusCode code="completed" /> <effectiveTime value="396788365612" /> <value unit="/HPF" xsi:type="PQ" value="None seen" /> < referenceRange> <observationRange> <text> NRG</text> </observationRange> </ referenceRange> </observation> </component> < component> <observation moodCode="EVN" classCode=" OBS"> <templateId root="2.16.840.1.474660.10.20.22.4.2& quot; /> <idnullFlavor="NA" /> <code codeSystem="local" code="200.1302" displayName=" Calcium Carbonate Cryst,Ur-MK" /> <statusCode code=" completed" /> <effectiveTime value="220001855362" /> <value unit="" xsi:type="PQ" value=" None seen" /> <referenceRange> < observationRange> <text>NRG</text> </ observationRange> </referenceRange> </observation&gt ; </component> <component> <observation moodCode ="EVN" classCode="OBS"> <templateId root=& quot;2.16.840.1.243301.10..22.4.2" /> <idnullFlavor=" NA" /> <code codeSystem="local" code=" 200.1352" displayName="Calcium Phosphate Cryst,Ur-MK" /> <statusCode code="completed" /> <effectiveTime value="535432860645" /> <value unit="" xsi: type="PQ" value="None seen" /> < referenceRange> <observationRange> <text> NRG</text> </observationRange> </ referenceRange> </observation> </component> < component> <observation moodCode="EVN" classCode=" OBS"> <templateId root="2.16.840.1.793325.10.20.22.4.2& quot; /> <idnullFlavor="NA" /> <code codeSystem="local" code="200.1402" displayName=" Calcium Oxalate Crystals,Ur-MK" /> <statusCode code=" completed" /> <effectiveTime value="896526043473" /> <value unit="" xsi:type="PQ" value=" Few" /> <referenceRange> <observationRange& gt; <text>NRG</text> </observationRange& gt; </referenceRange> </observation> </ component> <component> <observation moodCode="EVN& quot; classCode="OBS"> <templateId root=" 2.16.840.1.027935.10.20.22.4.2" /> <id nullFlavor="NA& quot; /> <code codeSystem="local" code="200.1452& quot; displayName="Cystine Crystals,Urine-MK" /> < statusCode code="completed" /> <effectiveTime value=& quot;287095386068" /> <value unit="" xsi:type=& quot;PQ" value="None seen" /> <referenceRange> <observationRange> <text>NRG</text> </observationRange> </referenceRange> < /observation> </component> <component> < observation moodCode="EVN" classCode="OBS"> < templateId root="2.16.840.1.373626.10..22.4.2" /> < id nullFlavor="NA" /> <code codeSystem="local&quot ; code="200.1502" displayName="Uric Acid Crystals,Urine-MK" /> <statusCode code="completed" /> < effectiveTime value="593910011133" /> <value unit=&quot ;" xsi:type="PQ" value="Few" /> < referenceRange> <observationRange> <text>NRG</ text> </observationRange> </referenceRange> </observation> </component> <component> <observation moodCode="EVN" classCode="OBS"> <templateId root="2.16.840.1.825720.10.20.22.4.2" /> <id nullFlavor="NA" /> <code codeSystem=" local" code="200.1552" displayName="Triple Phosphate Crystal ,Ur-MK" /> <statusCode code="completed" /> <effectiveTime value="813118295976" /> <value unit="" xsi:type="PQ" value="None seen" /> <referenceRange> <observationRange> <text& gt;NRG</text> </observationRange> </ referenceRange> </observation> </component> < component> <observation moodCode="EVN" classCode=" OBS"><templateId root="2.16.840.1.190679.10.20.22.4.2" /&gt ; <id nullFlavor="NA" /> <code codeSystem=& quot;local" code="200.1602" displayName="Tyrosine Crystal, Urine-MK" /> <statusCode code="completed" /> <effectiveTime value="991241103801" /> < value unit=""xsi:type="PQ" value="None seen" /&gt ; <referenceRange><observationRange> <text& gt;NRG</text> </observationRange> </ referenceRange> </observation> </component> < component> <observation moodCode="EVN" classCode=" OBS"> <templateId root="2.16.840.1.830614.10.20.22.4.2& quot; /> <id nullFlavor="NA" /> <code codeSystem="local" code="200.1702" displayName=" Amorphous Sediment,Urine-MK" /> <statusCode code=" completed" /> <effectiveTime value="468995011920" /& gt; <value unit="" xsi:type="PQ" value=" Moderate" /> <referenceRange> < observationRange> <text>NRG</text> </ observationRange> </referenceRange> </observation&gt ; </component> <component> <observation moodCode ="EVN" classCode="OBS"> <templateId root=& quot;2.16.840.1.194708.10.20.22.4.2" /> <id nullFlavor=&quot ;NA" /> <code codeSystem="local" code=" 200.1752" displayName="Bacteria,Urine-MK" /> < statusCode code="completed" /> <effectiveTime value=& quot;902808339883" /> <value unit="" xsi:type=& quot;PQ" value="1+" /> <interpretationCode codeSystem="local" code="*" /> < referenceRange> <observationRange> <text>NEGATIVE</ text> </observationRange> </referenceRange> </observation> </component> <component> <observation moodCode="EVN" classCode="OBS"> <templateId root="2.16.840.1.669737.10.20.22.4.2" /> <id nullFlavor="NA" /> <code codeSystem=" local" code="200.1802" displayName="Fatty Casts,Urine-MK& quot; /> <statusCode code="completed" /> & lt;effectiveTime value="924849370551" /> <value unit=& quot;/LPF" xsi:type="PQ" value="None seen" /> <referenceRange> <observationRange> <text>NRG& lt;/text> </observationRange> </referenceRange& gt; </observation> </component> <component> <observation moodCode="EVN" classCode="OBS"> <templateId root="2.16.840.1.516938.10.20.22.4.2" /> <id nullFlavor="NA" /> <code codeSystem=" local" code="200.1852" displayName="Hyaline Casts,Urine-MK& quot; /> <statusCode code="completed" /> &lt ;effectiveTime value="626705999092" /> <value unit=& quot;/LPF" xsi:type="PQ" value="1-3" /> &lt ;referenceRange> <observationRange> <text&gt ;NRG</text> </observationRange> </ referenceRange> </observation> </component> < component> <observation moodCode="EVN" classCode=" OBS"> <templateId root="2.16.840.1.210777.10.20.22.4.2& quot; /> <id nullFlavor="NA" /> <code codeSystem="local" code="200.1902" displayName=" Granular Casts,Urine-MK" /> <statusCode code="completed" /& gt; <effectiveTime value="336140724131" /> &lt ;value unit="" xsi:type="PQ" value="None seen"/&gt ; <referenceRange> <observationRange> <text>NRG</text> </observationRange> & lt;/referenceRange> </observation> </component> <component> <observation moodCode="EVN" classCode=& quot;OBS"> <templateId root=" 2.16.840.1.420346.10..22.4.2" /> <id nullFlavor="NA& quot; /> <code codeSystem="local" code="200.2051& quot; displayName="Waxy Casts,Urine-MK" /> <statusCode code="completed" /> <effectiveTime value=" 969921458230" /> <value unit="/LPF" xsi:type=&quot ;PQ" value="None seen" /> <referenceRange> <observationRange> <text>NRG</text> </observationRange> </referenceRange> </ observation> </component> <component> < observation moodCode="EVN"classCode="OBS"> < templateId root="2.16.840.1.180786.10..22.4.2" /> < id nullFlavor="NA" /> <code codeSystem="local&quot ; code="200.2102" displayName="Red Blood Cell Casts,Urine-MK&quot ; /> <statusCode code="completed" /> < effectiveTime value="749918851779"/> <value unit=" /LPF" xsi:type="PQ" value="None seen" /> & lt;referenceRange> <observationRange> <text& gt;NRG</text> </observationRange> </ referenceRange> </observation> </component> < component> <observation moodCode="EVN" classCode=" OBS"> <templateId root="2.16.840.1.552906.10.20.22.4.2& quot; /> <id nullFlavor="NA" /> <code codeSystem="local" code="200.2152" displayName="White Blood Cell Casts,Ur-MK" /> <statusCode code="completed& quot; /> <effectiveTime value="297458642871" /> <value unit="/LPF" xsi:type="PQ" value="None seen" /> <referenceRange> <observationRange > <text>NRG</text> </observationRange& gt; </referenceRange> </observation> </ component> <component> <observation moodCode="EVN& quot; classCode="OBS"> <templateId root=" 2.16.840.1.179166.10.20.22.4.2" /> <id nullFlavor="NA& quot; /> <code codeSystem="local" code="200.2177& quot; displayName="Hemoglogin casts, Urine-MK" /> < statusCode code="completed" /> <effectiveTime value=& quot;035167112814" /> <value unit="/LPF" xsi:type= "PQ" value="None seen" /> <referenceRange&gt ; <observationRange> <text>NRG</text> </observationRange> </referenceRange> & lt;/observation> </component> <component> < observation moodCode="EVN" classCode="OBS"> < templateId root="2.16.840.1.145984.10.20.22.4.2" /> < id nullFlavor="NA" /> <code codeSystem="local&quot ; code="200.2252" displayName="Starch,Urine-MK" /> <statusCode code="completed" /> <effectiveTime value="446539628887" /> <value unit="" xsi: type="PQ" value="None seen" /> <referenceRange> <observationRange> <text>NRG</text> </observationRange> </referenceRange> < /observation> </component> <component> < observation moodCode="EVN" classCode="OBS"> < templateId root="2.16.840.1.915834.10.20.22.4.2" /> < id nullFlavor="NA" /> <code codeSystem="local&quot ; code="200.2302" displayName="Mucus,Urine-MK" /> <statusCode code="completed" /> <effectiveTime value="047232798216" /> <value unit="" xsi: type="PQ" value="None seen" /> < referenceRange> <observationRange> <text> NRG</text> </observationRange> </ referenceRange> </observation> </component> < component> <observation moodCode="EVN" classCode=" OBS"> <templateId root="2.16.840.1.529613.10.20.22.4.2& quot; /> <id nullFlavor="NA" /> <code codeSystem="local" code="200.2352" displayName=" Trichomonas,Urine-MK" /> <statusCode code="completed& quot; /> <effectiveTime value="719789345609" /> <value unit="" xsi:type="PQ" value="None seen& quot; /> <referenceRange> <observationRange> <text>NRG</text> </observationRange> </referenceRange> </observation> </ component> <component> <observation moodCode="EVN& quot; classCode="OBS"> <templateId root=" 2.16.840.1.449361.10.20.22.4.2" /> <id nullFlavor="NA& quot; /> <code codeSystem="local" code="200.2402& quot; displayName="Yeast,Urine-MK" /> <statusCode code= "completed" /> <effectiveTime value="465276694417& quot; /> <value unit="" xsi:type="PQ" value=& quot;None seen" /> <referenceRange> < observationRange> <text>NEGATIVE</text> & lt;/observationRange> </referenceRange> </ observation> </component> <component> < observation moodCode="EVN" classCode="OBS"> < templateId root="2.16.840.1.837984.10.20.22.4.2" /> < id nullFlavor="NA" /> <code codeSystem="local&quot ; code="200.2502" displayName="Sperm,Urine-MK" /> <statusCode code="completed" /> <effectiveTime value="777213874419" /> <value unit="" xsi: type="PQ" value="None seen" /> < referenceRange> <observationRange> <text> NRG</text> </observationRange></referenceRange> </observation> </component> <component> &lt ;observation moodCode="EVN" classCode="OBS"> &lt ;templateId root="2.16.840.1.724643.10.20.22.4.2" /> < id nullFlavor="NA" /> <code codeSystem="local&quot ; code="200.2552" displayName="Oval Fat Bodies,Urine-MK" /& gt; <statusCode code="completed" /> < effectiveTime value="846577270402" /> <value unit=&quot ;" xsi:type="PQ" value="None seen" /> < referenceRange> <observationRange> <text> NRG</text> </observationRange> </ referenceRange> </observation> </component> < component><observation moodCode="EVN" classCode="OBS"& gt; <templateId root="2.16.840.1.789463.10.20.22.4.2" /&gt ; <id nullFlavor="NA" /> <code codeSystem=" local" code="200.2602" displayName="Culture Indicated,Ur- UAMIC-MK" /> <statusCode code="completed" /> <effectiveTime value="915084062394" /> < value unit="" xsi:type="PQ" value="Cult ordered & amp; setup" /> <referenceRange> <observationRange&gt ; <text>NRG</text> </observationRange&gt ; </referenceRange> </observation> </ component> </organizer> </entry> <entry> < organizer moodCode="EVN" classCode="BATTERY"> < templateId root="2.16.840.1.431654.10.20.22.4.1" /> <id nullFlavor="NA" /> <code codeSystem="local" code= "MCUUR-A" displayName="M750.1005" /> <statusCode code="completed" /> <component> <observation moodCode="EVN" classCode="OBS"> <templateId root=& quot;2.16.840.1.031518.10.20.22.4.2" /> <id nullFlavor=&quot ;NA" /> <code codeSystem="local" code=" 950.1630" displayName="Urine Culture - AMS" /> < statusCode code="completed" /> <effectiveTime value=" 485358045812" /> <value unit="" xsi:type="PQ& quot; value=" Source: Urine Collected: 12:33 " /> <referenceRange> < observationRange> <text>NRG</text> </ observationRange> </referenceRange></observation> & lt;/component> </organizer> </entry> <entry>< organizer moodCode="EVN" classCode="BATTERY"> < templateId root="2.16.840.1.445719.10.20.22.4.1" /> <id nullFlavor="NA" /> <code codeSystem="local" code= "LUAMIC-MK" displayName="L200.0052" /> <statusCode code="completed" /> <component> <observation moodCode="EVN" classCode="OBS"> <templateId root="2.16.840.1.425062.10.20.22.4.2" /> <id nullFlavor ="NA" /> <code codeSystem="local" code=" 200.0152" displayName="Specimen Type, Urine - MK" /> <statusCode code="completed" /> <effectiveTime value ="030114834560" /> <value unit="" xsi:type=& quot;PQ" value="Urine, Clean Catch" /> < referenceRange> <observationRange> <text>NRG</ text> </observationRange> </referenceRange> </observation> </component> <component> <observation moodCode="EVN" classCode="OBS"> <templateId root="2.16.840.1.312382.10.20.22.4.2" /> <id nullFlavor="NA" /> <code codeSystem=" local" code="200.0202" displayName="Color, Urine - MK" /> <statusCode code="completed" /> < effectiveTime value="173219213478" /> <value unit=&quot ;" xsi:type="PQ" value="YELLOW" /> < referenceRange> <observationRange> <text> YELLOW</text> </observationRange> </ referenceRange> </observation> </component> < component> <observation moodCode="EVN" classCode=" OBS"> <templateId root="2.16.840.1.417599.10.20.22.4.2& quot; /> <id nullFlavor="NA" /> <code codeSystem="local" code="200.0302" displayName="Clarity ,Urine - MK" /> <statusCode code="completed" /&gt ; <effectiveTime value="375686103215" /> < value unit="" xsi:type="PQ" value="SL CLOUDY" /&gt ; <referenceRange> <observationRange> <text>NRG</text> </observationRange> & lt;/referenceRange> </observation> </component> <component> <observation moodCode="EVN" classCode=& quot;OBS"> <templateId root=" 2.16.840.1.198825.10.20.22.4.2" /> <id nullFlavor="NA& quot; /> <code codeSystem="local" code="200.0327& quot; displayName="Specific [place],Urine - MK" /> < statusCode code="completed" /> <effectiveTime value=& quot;970101888975" /> <value unit="" xsi:type=& quot;PQ" value="1.015" /> <referenceRange> <observationRange> <text>1.015-1.025</text> </observationRange> </referenceRange> &lt ;/observation> </component> <component> < observation moodCode="EVN" classCode="OBS"> < templateId root="2.16.840.1.175381.10.20.22.4.2" /> < id nullFlavor="NA" /> <code codeSystem="local&quot ; code="200.0352" displayName="PH,Urine - MK" /> <statusCode code="completed" /> <effectiveTime value="631510042135" /> <value unit="" xsi:type=& quot;PQ" value="5.5" /> <referenceRange> <observationRange> <text>5.0-8.0</text> </observationRange> </referenceRange> </ observation> </component> <component> < observation moodCode="EVN" classCode="OBS"> < templateId root="2.16.840.1.191684.10.20.22.4.2" /> <id nullFlavor="NA" /> <code codeSystem="local" code="200.0412" displayName="Leukocyte Esterase,Urine - MK" /> <statusCode code="completed" /> < effectiveTime value="991535220328" /> <value unit="" xsi:type="PQ" value="2+" /> <referenceRange& gt; <observationRange> <text>NEGATIVE</ text> </observationRange> </referenceRange> & lt;/observation> </component> <component> < observation moodCode="EVN" classCode="OBS"> < templateId root="2.16.840.1.400525.10.20.22.4.2" /> <id nullFlavor="NA" /> <code codeSystem="local" code="200.0422" displayName="Nitrate,Urine - MK" /> <statusCode code="completed" /> <effectiveTime value="282177559167" /> <value unit="" xsi: type="PQ" value="POSITIVE" /> <referenceRange > <observationRange> <text>NEGATIVE</ text> </observationRange> </referenceRange> </observation> </component> <component> <observation moodCode="EVN" classCode="OBS"> <templateId root="2.16.840.1.805835.10..22.4.2" /> <id nullFlavor="NA" /> <code codeSystem=" local" code="200.0452" displayName="Protein,Urine - Dipstick - MK" /> <statusCode code="completed" /& gt; <effectiveTime value="975830702377" /> &lt ;value unit="" xsi:type="PQ" value="TRACE" /> <referenceRange> <observationRange> <text>NEGATIVE</text> </observationRange> </referenceRange> </observation> </component> <component> <observation moodCode="EVN" classCode ="OBS"> <templateId root=" 2.16.840.1.686761.10..22.4.2" /> <id nullFlavor="NA& quot; /> <code codeSystem="local" code="200.0502& quot; displayName="Glucose,Urine - Dipstick - MK" /> < statusCode code="completed" /> <effectiveTime value=& quot;109701186418" /> <value unit="" xsi:type=& quot;PQ" value="NEGATIVE" /> <referenceRange> <observationRange> <text>NEGATIVE</text& gt; </observationRange> </referenceRange> </ observation> </component> <component> < observation moodCode="EVN" classCode="OBS"> < templateId root="2.16.840.1.305080.10.20.22.4.2" /> < id nullFlavor="NA" /> <code codeSystem="local&quot ; code="200.0602" displayName="Ketones,Urine - Dipstick - MK&quot ; /> <statusCode code="completed" /> < effectiveTime value="488209259727" /> <value unit=&quot ;" xsi:type="PQ" value="TRACE" /> < referenceRange> <observationRange> <text> NEGATIVE</text> </observationRange> </referenceRange& gt; </observation> </component> <component> <observation moodCode="EVN" classCode="OBS"> <templateId root="2.16.840.1.228961.10.20.22.4.2" />< id nullFlavor="NA" /> <code codeSystem="local&quot ; code="200.0742" displayName="Urobilinogen,Urine - MK" /&gt ; <statusCode code="completed" /> < effectiveTime value="852818969054" /> <value unit=&quot ;EU/DL" xsi:type="PQ" value="0.2" /> < referenceRange> <observationRange> <text> NORMAL</text></observationRange> </referenceRange> </observation> </component> <component> <observation moodCode="EVN" classCode="OBS"> <templateId root="2.16.840.1.829525.10.20.22.4.2" /> <id nullFlavor="NA" /> <code codeSystem=" local" code="200.0752" displayName="Bilirubin,Urine - Dipstick -MK" /> <statusCode code="completed" /&gt ; <effectiveTime value="344731294841" /> < value unit="" xsi:type="PQ" value="NEGATIVE" /&gt ; <referenceRange> <observationRange> <text>NEGATIVE</text> </observationRange> &lt ;/referenceRange> </observation> </component> & lt;component> <observation moodCode="EVN" classCode=&quot ;OBS"> <templateId root="2.16.840.1.478810.10..22.4.2 " /> <id nullFlavor="NA" /> <code codeSystem ="local" code="200.0827" displayName="Occult Blood, Mdyzf-Xcqgwbey-AB" /> <statusCode code="completed&quot ; /> <effectiveTime value="128447794705" /> < value unit="" xsi:type="PQ" value="NEGATIVE" /&gt ; <referenceRange> <observationRange> <text>NEGATIVE</text> </observationRange> </referenceRange> </observation> </component> & lt;component> <observation moodCode="EVN" classCode=&quot ;OBS"> <templateId root="2.16.840.1.306467.10..22.4.2 " /> <id nullFlavor="NA" /> <code codeSystem="local" code="200.1002" displayName="RBC, Urine - MK" /> <statusCode code="completed" /> <effectiveTime value="805735988859" /> < valueunit="/HPF" xsi:type="PQ" value="None Seen" / > <referenceRange> <observationRange> <text>0-3</text> </observationRange> </referenceRange> </observation> </component> <component> <observation moodCode="EVN" classCode ="OBS"> <templateId root=" 2.16.840.1.592619.10.20.22.4.2" /> <id nullFlavor="NA& quot; /> <code codeSystem="local" code="200.1052& quot; displayName="WBC,Urine - MK" /> <statusCode code= "completed" /> <effectiveTime value="398824167536& quot; /> <value unit="/HPF" xsi:type="PQ" value="30-50" /> <interpretationCode codeSystem=" local" code="*" /> <referenceRange> <observationRange> <text>0-5</text> & lt;/observationRange> </referenceRange> </observation> </component> <component> <observation moodCode= "EVN" classCode="OBS"> <templateId root=&quot ;2.16.840.1.222639.10..22.4.2" /> <id nullFlavor="NA& quot; /> <code codeSystem="local" code="200.1102& quot; displayName="WBC Clumps,Urine - MK" /> < statusCode code="completed" /> <effectiveTime value=& quot;232928058781" /> <value unit="" xsi:type=& quot;PQ" value="Few" /> <referenceRange> <observationRange> <text>NRG</text> </observationRange> </referenceRange> </ observation> </component> <component> < observation moodCode="EVN" classCode="OBS"> < templateId root="2.16.840.1.766258.10..22.4.2" /> < id nullFlavor="NA" /> <code codeSystem="local&quot ; code="200.1152" displayName="Squamous EpithelialCell,Ur-MK&quot ; /> <statusCode code="completed" /> < effectiveTime value="135156568471" /> <value unit=&quot ;" xsi:type="PQ" value="0-5" /> < referenceRange> <observationRange> <text>NRG </text> </observationRange> </referenceRange& gt; </observation> </component> <component> <observation moodCode="EVN" classCode="OBS"> <templateId root="2.16.840.1.987773.10.20.22.4.2" /> <id nullFlavor="NA" /> <code codeSystem=&quot ;local" code="200.1752" displayName="Bacteria,Urine-MK&quot ; /> <statusCode code="completed" /> < effectiveTime value="276997927069" /> <value unit=&quot ;" xsi:type="PQ" value="2+" /> < interpretationCode codeSystem="local" code="*" /> & lt;referenceRange> <observationRange> <text& gt;NEGATIVE</text> </observationRange> </ referenceRange> </observation> </component> < component> <observation moodCode="EVN" classCode=" OBS"> <templateId root="2.16.840.1.147892.10.20.22.4.2& quot; /> <id nullFlavor="NA" /> <code codeSystem="local" code="200.2602" displayName=" Culture Indicated,Ur-UAMIC-MK" /> <statusCode code=" completed" /> <effectiveTime value="474862638507" /> <value unit="" xsi:type="PQ" value=" Cult reflexed &setup" /> <referenceRange> <observationRange> <text>NRG</text> </ observationRange> </referenceRange> </observation> </component> </organizer> </entry> <entry> <organizer moodCode="EVN" classCode="BATTERY"> <templateId root="2.16.840.1.178226.10.20.22.4.1" /> < id nullFlavor="NA" /><code codeSystem="local" code=& quot;MCUUR-A" displayName="M750.1005" /> <statusCode code="completed" /> <component> < observationmoodCode="EVN" classCode="OBS"> < templateId root="2.16.840.1.243661.10.20.22.4.2" /> < id nullFlavor="NA" /> <code codeSystem="local&quot ; code="950.1630" displayName="Urine Culture - AMS" /> <statusCode code="completed" /> < effectiveTime value="958168048086" /> <value unit=&quot ;" xsi:type="PQ" value=" Source: Urine Collected: 09/03/17 13:07 " /> <referenceRange&gt ; <observationRange> <text>NRG</text> </observationRange> </referenceRange> & lt;/observation> </component> </organizer> </entry&gt ; <entry> <organizer moodCode="EVN"classCode=" BATTERY"> <templateId root="2.16.840.1.428445.10.20.22.4.1& quot; /> <id nullFlavor="NA" /> <code codeSystem ="local" code="RODO-MK" displayName="L200.0113" /& gt; <statusCode code="completed" /> <component> <observation moodCode="EVN" classCode="OBS"> <templateId root="2.16.840.1.738810.10...4.2" /> <id nullFlavor="NA" /> <code codeSystem=& quot;local" code="200.0152" displayName="Specimen Type, Urine - MK" /> <statusCode code="completed" /> <effectiveTime value="737242401176" /> < valueunit="" xsi:type="PQ" value="Urine, Clean Catch& quot; /> <referenceRange> <observationRange> <text>NRG</text> </observationRange> </referenceRange> </observation> </component> <component> <observation moodCode="EVN" classCode= "OBS"> <templateId root=" 2.16.840.1.437135.10..22.4.2" /><id nullFlavor="NA" /&gt ; <code codeSystem="local" code="200.0202" displayName="Color, Urine - MK" /> <statusCode code=& quot;completed" /> <effectiveTime value="535600749268& quot; /> <value unit="" xsi:type="PQ" value=& quot;YELLOW" /> <referenceRange> < observationRange> <text>YELLOW</text> &lt ;/observationRange> </referenceRange> </observation& gt; </component> <component> <observation moodCode="EVN" classCode="OBS"> <templateId root="2.16.840.1.476020.10.20.22.4.2" /> <id nullFlavor ="NA" /> <code codeSystem="local" code=" 200.0302" displayName="Clarity,Urine - MK" /> < statusCode code="completed" /> <effectiveTime value=& quot;647515172145" /> <value unit="" xsi:type=& quot;PQ" value="CLEAR" /> <referenceRange>< observationRange> <text>NRG</text> </ observationRange> </referenceRange> </observation&gt ; </component> <component> <observation moodCode ="EVN" classCode="OBS"> <templateId root=& quot;2.16.840.1.303569.10.20.22.4.2" /> <id nullFlavor=&quot ;NA" /> <code codeSystem="local" code=" 200.0327" displayName="Specific [place],Urine - MK" /> <statusCode code="completed" /> <effectiveTime value ="260800209881" /> <value unit="" xsi:type=& quot;PQ" value="1.015" /> <referenceRange> <observationRange> <text>1.015-1.025</text& gt; </observationRange> </referenceRange> </observation> </component> <component> &lt ;observation moodCode="EVN" classCode="OBS"> &lt ;templateId root="2.16.840.1.896247.10.20.22.4.2" /> < id nullFlavor="NA" /> <code codeSystem="local&quot ; code="200.0352" displayName="PH,Urine - MK" /> <statusCode code="completed" /> <effectiveTime value="315610770896" /> <value unit="" xsi: type="PQ" value="6.0" /> <referenceRange> <observationRange> <text>5.0-8.0</text& gt; </observationRange> </referenceRange> </observation> </component> <component> < observation moodCode="EVN" classCode="OBS"> < templateId root="2.16.840.1.850090.10.20.22.4.2" /> < id nullFlavor="NA" /> <code codeSystem="local" code="200.0412" displayName="Leukocyte Esterase,Urine - MK" /> <statusCode code="completed" /> < effectiveTime value="549987217171" /> <value unit=&quot ;" xsi:type="PQ" value="TRACE" /> < referenceRange> <observationRange> <text> NEGATIVE</text> </observationRange> </ referenceRange> </observation> </component> < component> <observation moodCode="EVN" classCode="OBS&quot ;> <templateId root="2.16.840.1.738958.10.20.22.4.2" /& gt; <id nullFlavor="NA" /> <code codeSystem=& quot;local" code="200.0422" displayName="Nitrate,Urine - MK& quot; /> <statusCode code="completed" /> & lt;effectiveTime value="654442546902" /> <value unit=& quot;" xsi:type="PQ" value="NEGATIVE" /> & lt;referenceRange> <observationRange> <text> NEGATIVE</text> </observationRange> </ referenceRange> </observation> </component> < component> <observation moodCode="EVN" classCode=" OBS"> <templateId root="2.16.840.1.665957.10.20.22.4.2& quot; /> <id nullFlavor="NA" /> <code codeSystem="local" code="200.0452" displayName="Protein ,Urine - Dipstick - MK" /> <statusCode code="completed& quot; /> <effectiveTime value="277747266134" /> <value unit="" xsi:type="PQ" value="NEGATIVE& quot; /> <referenceRange> <observationRange> <text>NEGATIVE</text> </observationRange > </referenceRange> </observation> </ component> <component> <observation moodCode="EVN& quot; classCode="OBS"> <templateId root=" 2.16.840.1.982855.10.20.22.4.2" /> <id nullFlavor="NA& quot; /> <code codeSystem="local" code="200.0502" displayName="Glucose,Urine -Dipstick - MK" /> < statusCode code="completed" /> <effectiveTime value=& quot;295026064149" /> <value unit="" xsi:type=& quot;PQ" value="NEGATIVE" /> <referenceRange> <observationRange> <text>NEGATIVE</text& gt; </observationRange> </referenceRange> </observation> </component> <component> < observation moodCode="EVN" classCode="OBS"> < templateId root="2.16.840.1.481365.10.20.22.4.2" /> < id nullFlavor="NA" /> <code codeSystem="local" code="200.0602" displayName="Ketones,Urine - Dipstick - MK" /> <statusCode code="completed" /> < effectiveTime value="189199502320" /> <value unit=&quot ;" xsi:type="PQ" value="NEGATIVE" /> < referenceRange> <observationRange> <text> NEGATIVE</text> </observationRange> </referenceRange& gt; </observation> </component> <component> <observation moodCode="EVN" classCode="OBS"> <templateId root="2.16.840.1.551189.10.20.22.4.2" /> <id nullFlavor="NA" /> <code codeSystem=" local" code="200.0742" displayName="Urobilinogen,Urine - MK& quot; /> <statusCode code="completed" /> & lt;effectiveTime value="207809271632" /> <value unit=& quot;EU/DL" xsi:type="PQ" value="0.2" /> & lt;referenceRange> <observationRange> <text& gt;NORMAL</text> </observationRange> </ referenceRange> </observation> </component> < component> <observation moodCode="EVN" classCode="OBS& quot;> <templateId root="2.16.840.1.968785.10..22.4.2&quot ; /> <id nullFlavor="NA" /> <code codeSystem="local" code="200.0752" displayName=" Bilirubin,Urine - Dipstick -MK" /> <statusCode code=" completed" /> <effectiveTime value="277942715161" /> <value unit="" xsi:type="PQ" value=" NEGATIVE" /> <referenceRange> < observationRange> <text>NEGATIVE</text> & lt;/observationRange> </referenceRange> </observation> </component> <component> <observation moodCode=& quot;EVN" classCode="OBS"> <templateId root=" 2.16.840.1.833797.10..22.4.2" /> <id nullFlavor="NA& quot; /> <code codeSystem="local" code="200.0827& quot; displayName="OccultBlood,Rhbal-Bulslqqs-IF" /> < statusCode code="completed" /> <effectiveTime value=" 978281130448" /> <value unit="" xsi:type="PQ& quot; value="TRACE-INTACT" /> <referenceRange> <observationRange> <text>NEGATIVE</text> </observationRange> </referenceRange> &lt ;/observation> </component> <component> < observation moodCode="EVN" classCode="OBS"> < templateId root="2.16.840.1.091757.10.20.22.4.2" /> < id nullFlavor="NA" /> <code codeSystem="local&quot ; code="200.0993" displayName="Urine Microscopic (UA-MK)" /& gt; <statusCode code="completed" /> < effectiveTime value="603714066967" /> <value unit=&quot ;" xsi:type="PQ" value="Microscopic Not Ind." /> <referenceRange> <observationRange> < text>NRG</text> </observationRange> </ referenceRange> </observation> </component> </ organizer> </entry> <entry> <organizer moodCode="EVN " classCode="BATTERY"> <templateId root=" 2.16.840.1.721403.10.20.22.4.1" /><id nullFlavor="NA" /&gt ; <code codeSystem="local" code="LUAMIC-MK" displayName="L200.0052" /> <statusCode code="completed " /> <component> <observation moodCode="EVN& quot; classCode="OBS"> <templateId root=" 2.16.840.1.012476.10.20.22.4.2" /> <id nullFlavor="NA& quot; /> <code codeSystem="local" code="200.0152& quot; displayName="Specimen Type, Urine - MK" /> < statusCode code="completed" /> <effectiveTime value=& quot;634163901668" /> <value unit="" xsi:type=& quot;PQ" value="Urine, Clean Catch" /> < referenceRange> <observationRange> <text> NRG</text> </observationRange> </ referenceRange> </observation> </component> < component> <observation moodCode="EVN" classCode=" OBS"> <templateId root="2.16.840.1.963177...22.4.2& quot; /> <id nullFlavor="NA" /> <code codeSystem="local" code="200.0202" displayName="Color, Urine - MK" /> <statusCode code="completed"/> <effectiveTime value="081785006641" /> < value unit="" xsi:type="PQ" value="YELLOW" /> <referenceRange> <observationRange> <text >YELLOW</text> </observationRange> </ referenceRange> </observation> </component> < component> <observation moodCode="EVN" classCode=" OBS"> <templateId root="2.16.840.1.236512...22.4.2" /& gt; <id nullFlavor="NA" /> <code codeSystem ="local" code="200.0302" displayName="Clarity,Urine - MK" /> <statusCode code="completed" /> < effectiveTime value="595570032969" /> <value unit=&quot ;" xsi:type="PQ" value="SL CLOUDY" /> < referenceRange> <observationRange> <text> NRG</text> </observationRange> </referenceRange& gt; </observation> </component> <component> <observation moodCode="EVN" classCode="OBS"> <templateId root="2.16.840.1.803039.10.20.22.4.2" /> <id nullFlavor="NA" /> <code codeSystem=&quot ;local" code="200.0327" displayName="Specific [place],Urine - MK" /> <statusCode code="completed" /> < effectiveTime value="181764547924" /> <value unit=&quot ;" xsi:type="PQ" value="1.010" /> < interpretationCode codeSystem="local" code="*" /> <referenceRange> <observationRange> < text>1.015-1.025</text> </observationRange> & lt;/referenceRange> </observation> </component> <component> <observation moodCode="EVN" classCode=& quot;OBS"> <templateId root=" 2.16.840.1.080129.10..22.4.2" /> <id nullFlavor="NA& quot; /> <code codeSystem="local" code="200.0352" displayName="PH,Urine - MK" /> <statusCode code=" completed" /> <effectiveTime value="834037141094" /> <value unit="" xsi:type="PQ" value=" 5.0" /> <referenceRange> <observationRange& gt; <text>5.0-8.0</text> </ observationRange> </referenceRange> </observation&gt ; </component> <component> <observation moodCode ="EVN" classCode="OBS"> <templateId root=& quot;2.16.840.1.468458.10..22.4.2" /> <id nullFlavor=&quot ;NA" /> <code codeSystem="local" code=" 200.0412" displayName="Leukocyte Esterase,Urine - MK" /> <statusCode code="completed" /> <effectiveTime value="845431739125" /> <value unit="" xsi: type="PQ" value="1+" /> <referenceRange> <observationRange> <text>NEGATIVE</text& gt; </observationRange> </referenceRange> & lt;/observation> </component> <component> < observation moodCode="EVN" classCode="OBS"> < templateId root="2.16.840.1.804065.10..22.4.2" /> < id nullFlavor="NA" /> <code codeSystem="local&quot ; code="200.0422" displayName="Nitrate,Urine - MK" /> <statusCode code="completed" /> <effectiveTime value ="509940897055" /> <value unit="" xsi:type=& quot;PQ" value="POSITIVE" /> <referenceRange> <observationRange> <text>NEGATIVE</text& gt; </observationRange> </referenceRange> </observation> </component> <component> &lt ;observation moodCode="EVN" classCode="OBS"> &lt ;templateId root="2.16.840.1.509818.10.20.22.4.2" /> < id nullFlavor="NA" /> <code codeSystem="local&quot ; code="200.0452" displayName="Protein,Urine - Dipstick - MK&quot ; /> <statusCode code="completed" /> < effectiveTime value="823893018630" /> <value unit=&quot ;" xsi:type="PQ" value="NEGATIVE" /> < referenceRange> <observationRange> <text> NEGATIVE</text> </observationRange> </ referenceRange> </observation> </component> < component> <observation moodCode="EVN" classCode=" OBS"> <templateId root="2.16.840.1.815152.10.20.22.4.2& quot; /> <id nullFlavor="NA" /> <code codeSystem="local" code="200.0502" displayName="Glucose ,Urine - Dipstick - MK" /> <statusCode code="completed& quot; /> <effectiveTime value="214338896494" /> <value unit="" xsi:type="PQ" value="NEGATIVE& quot; /> <referenceRange> <observationRange> <text>NEGATIVE</text> </observationRange > </referenceRange> </observation> </ component> <component> <observation moodCode="EVN& quot; classCode="OBS"> <templateId root=" 2.16.840.1.531533.10..22.4.2" /> <id nullFlavor="NA& quot; /> <code codeSystem="local" code="200.0602& quot; displayName="Ketones,Urine - Dipstick - MK" /> < statusCode code="completed" /> <effectiveTime value=& quot;428827780775" /> <value unit="" xsi:type=& quot;PQ" value="NEGATIVE" /> <referenceRange> <observationRange><text>NEGATIVE</text> </observationRange> </referenceRange> </ observation> </component> <component> < observationmoodCode="EVN" classCode="OBS"> < templateId root="2.16.840.1.518885.10..22.4.2" /> < id nullFlavor="NA" /> <code codeSystem="local&quot ; code="200.0742" displayName="Urobilinogen,Urine - MK" /&gt ; <statusCode code="completed" /> < effectiveTime value="950516989503" /> <value unit=&quot ;EU/DL" xsi:type="PQ" value="0.2" /> < referenceRange> <observationRange> <text> NORMAL</text> </observationRange> </ referenceRange> </observation> </component> < component> <observation moodCode="EVN" classCode=" OBS"> <templateId root="2.16.840.1.068725.10.20.22.4.2& quot; /> <id nullFlavor="NA" /> <code codeSystem="local" code="200.0752" displayName=" Bilirubin,Urine - Dipstick -MK" /> <statusCode code=" completed" /> <effectiveTime value="450765172259" /> <value unit="" xsi:type="PQ" value=" NEGATIVE" /> <referenceRange> < observationRange> <text>NEGATIVE</text> </ observationRange> </referenceRange> </observation&gt ; </component> <component> <observation moodCode ="EVN" classCode="OBS"> <templateId root=& quot;2.16.840.1.660676.10.20.22.4.2" /> <id nullFlavor=&quot ;NA" /> <code codeSystem="local" code=" 200.0827" displayName="Occult Blood,Kbojv-Eakmxcxr-YM" /> <statusCode code="completed" /> < effectiveTime value="108803060045" /> <value unit=&quot ;" xsi:type="PQ" value="NEGATIVE" /> < referenceRange> <observationRange> <text>NEGATIVE </text> </observationRange> </referenceRange& gt; </observation> </component> <component> <observation moodCode="EVN" classCode="OBS"> <templateId root="2.16.840.1.055288.10.20.22.4.2" /> <id nullFlavor="NA" /> <code codeSystem=&quot ;local" code="200.1002" displayName="RBC,Urine - MK" /& gt; <statusCode code="completed" /> < effectiveTime value="414673579950" /> <value unit=&quot ;/HPF" xsi:type="PQ" value="None Seen" /> & lt;referenceRange> <observationRange><text>0-3</ text> </observationRange> </referenceRange> </observation> </component> <component> & lt;observation moodCode="EVN" classCode="OBS"> & lt;templateId root="2.16.840.1.518076.10.20.22.4.2" /> &lt ;id nullFlavor="NA" /> <code codeSystem="local& quot; code="200.1052" displayName="WBC,Urine - MK" />< statusCode code="completed" /> <effectiveTime value=& quot;294015558046" /> <value unit="/HPF" xsi:type= "PQ" value="20-30" /> <interpretationCode codeSystem="local" code="*" /> < referenceRange> <observationRange> <text> 0-5</text> </observationRange> </referenceRange > </observation> </component> <component> <observation moodCode="EVN" classCode="OBS"> <templateId root="2.16.840.1.744437.10..22.4.2" /> & lt;id nullFlavor="NA" /> <code codeSystem="local& quot; code="200.1102" displayName="WBC Clumps,Urine - MK" /& gt; <statusCode code="completed" /> < effectiveTime value="736256156922" /> <value unit=&quot ;" xsi:type="PQ" value="Many" /> < interpretationCode codeSystem="local" code="*" /> <referenceRange> <observationRange> <text> NRG</text> </observationRange> </ referenceRange> </observation> </component> < component> <observation moodCode="EVN" classCode=" OBS"> <templateId root="2.16.840.1.993258.10.20.22.4.2" /& gt; <id nullFlavor="NA" /> <code codeSystem ="local" code="200.1152" displayName="Squamous Epithelial Cell,Ur-MK" /> <statusCode code="completed& quot;/> <effectiveTime value="142826175045" /> <value unit="" xsi:type="PQ" value="0-5" / > <referenceRange><observationRange> < text>NRG</text> </observationRange> </ referenceRange> </observation> </component> < component> <observation moodCode="EVN" classCode=" OBS"> <templateId root="2.16.840.1.231060.10.20.22.4.2& quot; /> <id nullFlavor="NA" /> <code codeSystem="local" code="200.1752" displayName=" Bacteria,Urine-MK" /> <statusCode code="completed&quot ; /> <effectiveTime value="684917241987" /> <value unit="" xsi:type="PQ" value="2+" /&gt ; <interpretationCode codeSystem="local" code="*&quot ; /> <referenceRange> <observationRange> & lt;text>NEGATIVE</text> </observationRange> & lt;/referenceRange> </observation> </component> <component> <observation moodCode="EVN" classCode=& quot;OBS"> <templateId root=" 2.16.840.1.028983.10.20.22.4.2" /> <id nullFlavor="NA& quot; /> <code codeSystem="local" code="200.2602& quot; displayName="Culture Indicated,Ur-UAMIC-MK" /> < statusCode code="completed" /> <effectiveTime value=& quot;423176561331" /> <value unit="" xsi:type=& quot;PQ" value="Cult reflexed &setup" /> < referenceRange> <observationRange> <text> NRG</text> </observationRange> </referenceRange> </observation> </component> </organizer></ entry> <entry> <organizer moodCode="EVN" classCode=& quot;BATTERY"> <templateId root=" 2.16.840.1.292285.10.20.22.4.1" /> <id nullFlavor="NA&quot ; /> <code codeSystem="local" code="MCUUR-A" displayName="M750.1005" /> <statusCode code="completed " /> <component> <observation moodCode="EVN& quot; classCode="OBS"> <templateId root=" 2.16.840.1.512503.10.20.22.4.2" /> <id nullFlavor="NA& quot;/> <code codeSystem="local" code="950.1630& quot; displayName="Urine Culture - AMS" /> <statusCode code="completed" /> <effectiveTime value=" 109671108468" /> <value unit="" xsi:type="PQ& quot; value=" Source: Urine Collected: 10:50 " /> <referenceRange> < observationRange> <text>NRG</text> </ observationRange> </referenceRange> </observation&gt ; </component> </organizer> </entry> <entry> <organizer moodCode="EVN" classCode="BATTERY"> <templateId root="2.16.840.1.780654.10.20.22.4.1" /> < id nullFlavor="NA" /> <code codeSystem="local" code="LUAMIC" displayName="L200.0050" /> < statusCode code="completed" /> <component> < observation moodCode="EVN" classCode="OBS"> < templateId root="2.16.840.1.787070.10..22.4.2" /> < id nullFlavor="NA" /> <code codeSystem="local&quot ; code="200.0150" displayName="POTASSIUM" /> &lt ;statusCode code="completed" /> <effectiveTime value=& quot;870472905919" /> <value unit="" xsi:type="PQ&quot ; value="Urine, Cath Straight" /> <referenceRange> <observationRange> <text>NRG</text> </observationRange> </referenceRange> </ observation> </component> <component> < observation moodCode="EVN" classCode="OBS"> < templateId root="2.16.840.1.812524.10..22.4.2" /> < id nullFlavor="NA" /> <code codeSystem="local&quot ; code="200.0200" displayName="CHLORIDE" /> < statusCode code="completed" /> <effectiveTime value=& quot;216066462113" /> <value unit="" xsi:type=& quot;PQ" value="YELLOW" /> <referenceRange> <observationRange> <text>YELLOW</text> </observationRange> </referenceRange> &lt ;/observation> </component> <component> < observation moodCode="EVN" classCode="OBS"> < templateId root="2.16.840.1.761868.10.20.22.4.2" /> < id nullFlavor="NA" /> <code codeSystem="local&quot ; code="200.0300" displayName="ANION GAP" /> &lt ;statusCode code="completed" /> <effectiveTime value=& quot;891601941214" /> <value unit="" xsi:type=& quot;PQ" value="CLEAR" /> <referenceRange> <observationRange> <text>NRG</text> </observationRange> </referenceRange> </ observation> </component> <component> < observation moodCode="EVN" classCode="OBS"> < templateId root="2.16.840.1.620066.10.20.22.4.2" /> < id nullFlavor="NA" /> <code codeSystem="local&quot ; code="200.0350" displayName="BLOOD UREA NITROGEN" /> <statusCode code="completed" /> < effectiveTime value="364930993194" /> <value unit=&quot ;" xsi:type="PQ" value="5.5" /> < referenceRange> <observationRange> <text> 5.0-8.0</text> </observationRange> </ referenceRange> </observation> </component> < component><observation moodCode="EVN" classCode="OBS"& gt; <templateId root="2.16.840.1.981779.10.20.22.4.2" /&gt ; <id nullFlavor="NA" /> <code codeSystem=" local" code="200.0450" displayName="BUN/CREATININERATIO&quot ; /> <statusCode code="completed" /> < effectiveTime value="666123446812" /> <value unit=&quot ;" xsi:type="PQ" value="NEGATIVE" /> < referenceRange> <observationRange> <text> NEGATIVE</text> </observationRange> </ referenceRange> </observation> </component> < component> <observation moodCode="EVN" classCode=" OBS"> <templateId root="2.16.840.1.228979.10.20.22.4.2& quot; /> <id nullFlavor="NA" /> <code codeSystem="local" code="200.0500" displayName="GLUCOSE " /> <statusCode code="completed" /> & lt;effectiveTime value="836231088008" /> <value unit=& quot;" xsi:type="PQ" value="NEGATIVE" /> & lt;referenceRange> <observationRange> <text& gt;NEGATIVE</text> </observationRange> </ referenceRange> </observation> </component> < component> <observation moodCode="EVN" classCode=" OBS"> <templateId root="2.16.840.1.881337.10.20.22.4.2& quot; /> <id nullFlavor="NA" /> <code codeSystem="local" code="200.0600" displayName="CALCIUM " /> <statusCode code="completed" /> & lt;effectiveTime value="943104519979" /> <value unit=& quot;" xsi:type="PQ" value="NEGATIVE" /> < referenceRange> <observationRange> <text> NEGATIVE</text> </observationRange> </ referenceRange> </observation> </component> < component> <observation moodCode="EVN"classCode="OBS "> <templateId root="2.16.840.1.743576.10.20.22.4.2& quot; /> <id nullFlavor="NA" /> <code codeSystem="local" code="200.0750" displayName=" BILIRUBIN, CONJUG &amp; UNCONJUG" /> <statusCode code=& quot;completed" /> <effectiveTime value="359809001527& quot; /> <value unit="" xsi:type="PQ" value=& quot;NEGATIVE" /> <referenceRange> < observationRange> <text>NEGATIVE</text> & lt;/observationRange> </referenceRange></observation> </component> <component> <observation moodCode=& quot;EVN" classCode="OBS"> <templateId root=" 2.16.840.1.981172.10..22.4.2" /> <id nullFlavor="NA& quot; /> <code codeSystem="local" code="200.1000& quot; displayName="TOTAL PROTEIN" /> <statusCode code=& quot;completed" /> <effectiveTime value="352087331847& quot; /> <value unit="/HPF" xsi:type="PQ" value="1-3" /> <referenceRange> < observationRange> <text>0-3</text> </ observationRange> </referenceRange> </observation&gt ; </component> <component> <observation moodCode ="EVN" classCode="OBS"> <templateId root=& quot;2.16.840.1.704927.10.20.22.4.2" /> <id nullFlavor=&quot ;NA" /> <code codeSystem="local" code=" 200.1050" displayName="ALBUMIN" /> <statusCode code="completed" /> <effectiveTime value=" 902398253070" /> <valueunit="/HPF" xsi:type=" PQ" value="10-20" /> <interpretationCode codeSystem="local" code="*" /> < referenceRange> <observationRange> <text>0-5</ text> </observationRange> </referenceRange> </observation> </component> <component> <observation moodCode="EVN" classCode="OBS"> <templateId root="2.16.840.1.188338.10.20.22.4.2" /> <id nullFlavor="NA" /> <code codeSystem=" local" code="200.1500" displayName="LDL CHOLESTEROL, CALCULATED" /> <statusCode code="completed" /> <effectiveTime value="346728489793" /> < value unit=""xsi:type="PQ" value="Moderate" /> <referenceRange> <observationRange> <text>NRG</text> </observationRange> & lt;/referenceRange> </observation> </component> <component> <observation moodCode="EVN" classCode=& quot;OBS"> <templateId root=" 2.16.840.1.455348.10..22.4.2" /> <id nullFlavor="NA& quot; /> <code codeSystem="local" code="200.1750& quot; displayName="CKMB" /> <statusCode code=" completed" /> <effectiveTime value="953199668160" /> <value unit="" xsi:type="PQ" value="1 +" /> <interpretationCode codeSystem="local" code= "*" /> <referenceRange> < observationRange> <text>NEGATIVE</text> & lt;/observationRange> </referenceRange></observation> </component> <component> <observation moodCode=& quot;EVN" classCode="OBS"> <templateId root=" 2.16.840.1.936091.10.20.22.4.2" /> <id nullFlavor="NA& quot; /> <code codeSystem="local" code="200.2600& quot; displayName="GENTAMICIN,RANDOM" /> <statusCode code="completed" /> <effectiveTime value=" 647098359302" /> <value unit="" xsi:type="PQ& quot; value="Cult reflexed &setup" /> < referenceRange> <observationRange> <text>NRG</text > </observationRange> </referenceRange> </observation> </component> <component> &lt ;observation moodCode="EVN" classCode="OBS"> &lt ;templateId root="2.16.840.1.369613.10.20.22.4.2" /> < id nullFlavor="NA" /> <code codeSystem="local&quot ; code="200.0325" displayName="Specific [place],Urine" /&gt ; <statusCode code="completed" /> < effectiveTime value="197625722576" /> <value unit=&quot ;" xsi:type="PQ" value="1.020" /> < referenceRange> <observationRange> <text> 1.015-1.025</text> </observationRange> </ referenceRange> </observation> </component> < component> <observation moodCode="EVN" classCode=" OBS"> <templateId root="2.16.840.1.824657.10..22.4.2& quot; /> <id nullFlavor="NA" /> <code codeSystem="local" code="200.0410" displayName=" Leukocyte Esterase,Urine" /> <statusCode code="completed " /> <effectiveTime value="435461642526" /> <value unit="" xsi:type="PQ" value="1+" /> <referenceRange> <observationRange> <text>NEGATIVE</text> </observationRange> </referenceRange> </observation> </component > <component> <observation moodCode="EVN" classCode="OBS"> <templateId root=" 2.16.840.1.886313.10..22.4.2" /> <id nullFlavor="NA& quot; /> <code codeSystem="local" code="200.0420& quot; displayName="Nitrate,Urine" /> <statusCode code=& quot;completed" /> <effectiveTime value="912901317378& quot; /> <value unit="" xsi:type="PQ" value=& quot;POSITIVE" /> <referenceRange> < observationRange> <text>NEGATIVE</text> & lt;/observationRange> </referenceRange> </ observation> </component> <component> < observation moodCode="EVN"classCode="OBS"> < templateId root="2.16.840.1.510008.10.20.22.4.2" /> < id nullFlavor="NA" /> <code codeSystem="local&quot ; code="200.0740" displayName="Urobilinogen,Urine" /> <statusCode code="completed" /> < effectiveTime value="050624883847" /> <value unit="EU/DL " xsi:type="PQ" value="0.2" /> < referenceRange> <observationRange> <text> NORMAL</text> </observationRange> </ referenceRange> </observation> </component> < component> <observation moodCode="EVN" classCode=" OBS"> <templateId root="2.16.840.1.321215.10.20.22.4.2& quot; /> <id nullFlavor="NA" /> <code codeSystem="local" code="200.0825" displayName="Occult Blood,Urine - Dipstick" /> <statusCode code="completed& quot; /> <effectiveTime value="786699771850" /> <value unit="" xsi:type="PQ" value="2+" /&gt ; <referenceRange> <observationRange> <text>NEGATIVE</text> </observationRange> </referenceRange> </observation></component> </ organizer> </entry> <entry> <organizer moodCode="EVN " classCode="BATTERY"> <templateId root=" 2.16.840.1.543229.10.20.22.4.1" /> <id nullFlavor="NA&quot ; /> <code codeSystem="local" code="MCUU" displayName="M120.0100" /> <statusCode code="completed " /> <component> <observation moodCode="EVN& quot; classCode="OBS"> <templateId root=" 2.16.840.1.838208.10.20.22.4.2" /> <id nullFlavor="NA&quot ; /> <code codeSystem="local" code="120.0100&quot ; displayName="Urine Culture" /> <statusCode code=&quot ;completed" /> <effectiveTime value="363082829861&quot ; /> <value unit="CFU/ml" xsi:type="PQ" value =" " /> <referenceRange> < observationRange> <text>NRG</text> </ observationRange> </referenceRange> </observation&gt ; </component> </organizer> </entry> <entry> <organizer moodCode="EVN" classCode="BATTERY"> <templateId root="2.16.840.1.193121.10.20.22.4.1" /> < id nullFlavor="NA" /> <code codeSystem="local" code="CLGON7I-PU" displayName="L300.7373" /> < statusCode code="completed" /> <component> < observation moodCode="EVN" classCode="OBS"> < templateId root="2.16.840.1.786254.10.20.22.4.2" /> < id nullFlavor="NA" /> <code codeSystem="local&quot ; code="300.7373" displayName="ASQNQ9K-NP" /> & lt;statusCode code="completed" /> <effectiveTime value= "843051064077" /> <value unit="%" xsi :type="PQ" value="8.6" /> < interpretationCode codeSystem="local" code="*" /> <referenceRange> <observationRange> < text>4.0-5.7</text> </observationRange> </ referenceRange> </observation> </component> </ organizer> </entry> <entry> <organizer moodCode="EVN " classCode="BATTERY"> <templateId root=" 2.16.840.1.019432.10.20.22.4.1" /> <id nullFlavor="NA&quot ; /> <code codeSystem="local" code="LUAMIC-MK" displayName="L200.0052" /> <statusCode code="completed " /> <component> <observation moodCode="EVN& quot; classCode="OBS"> <templateId root=" 2.16.840.1.655641.10..22.4.2" /> <id nullFlavor="NA& quot; /> <code codeSystem="local" code="200.0152& quot; displayName="Specimen Type, Urine - MK" /> < statusCode code="completed" /> <effectiveTime value=" 487544435515" /> <value unit="" xsi:type="PQ& quot; value="Urine, Clean Catch" /> <referenceRange&gt ; <observationRange> <text>NRG</text> </observationRange> </referenceRange> </ observation> </component> <component> < observation moodCode="EVN" classCode="OBS"> < templateId root="2.16.840.1.728242.10..22.4.2" /> < id nullFlavor="NA" /> <code codeSystem="local&quot ; code="200.0202" displayName="Color, Urine - MK" /> <statusCode code="completed" /> <effectiveTime value= "710936796534" /> <value unit="" xsi:type=& quot;PQ" value="YELLOW" /> <referenceRange> <observationRange> <text>YELLOW</text> </observationRange> </referenceRange> </ observation> </component> <component> < observation moodCode="EVN" classCode="OBS"> < templateId root="2.16.840.1.729238.10.20.22.4.2" /> < id nullFlavor="NA"/> <code codeSystem="local&quot ; code="200.0302" displayName="Clarity,Urine - MK" /> <statusCode code="completed" /> < effectiveTime value="761767630185" /> <value unit=&quot ;" xsi:type="PQ" value="CLOUDY" /> < referenceRange> <observationRange> <text> NRG</text> </observationRange> </ referenceRange> </observation> </component> < component> <observation moodCode="EVN" classCode=" OBS"> <templateId root="2.16.840.1.182783.10.20.22.4.2& quot; /> <id nullFlavor="NA" /> <code codeSystem= "local" code="200.0327" displayName="Specific [place], Urine - MK" /> <statusCode code="completed" /> <effectiveTime value="792218244209" /> < value unit="" xsi:type="PQ" value="1.020" /> <referenceRange> <observationRange> & lt;text>1.015-1.025</text> </observationRange> </referenceRange> </observation> </component> <component> <observation moodCode="EVN" classCode ="OBS"> <templateId root=" 2.16.840.1.057962.10.20.22.4.2" /> <id nullFlavor="NA& quot; /> <code codeSystem="local" code="200.0352" displayName="PH,Urine - MK" /> <statusCode code=" completed" /> <effectiveTime value="188260156609" /> <value unit="" xsi:type="PQ" value=" 5.0" /> <referenceRange> <observationRange& gt; <text>5.0-8.0</text> </ observationRange> </referenceRange> </observation&gt ; </component> <component> <observation moodCode ="EVN" classCode="OBS"> <templateId root=& quot;2.16.840.1.886080.10.20.22.4.2" /> <id nullFlavor=&quot ;NA" /> <code codeSystem="local" code=" 200.0412" displayName="Leukocyte Esterase,Urine - MK" /> <statusCode code="completed" /> <effectiveTime value="866046499280" /> <value unit="" xsi: type="PQ" value="1+" /> <referenceRange> <observationRange> <text>NEGATIVE</text& gt; </observationRange> </referenceRange> & lt;/observation> </component> <component> < observation moodCode="EVN" classCode="OBS"> < templateId root="2.16.840.1.734747.10.20.22.4.2" /> < id nullFlavor="NA" /> <code codeSystem="local&quot ; code="200.0422" displayName="Nitrate,Urine - MK" /> <statusCode code="completed" /> <effectiveTime value ="792261884138" /> <value unit="" xsi:type=& quot;PQ" value="POSITIVE" /> <referenceRange> <observationRange> <text>NEGATIVE</text& gt; </observationRange> </referenceRange> </observation> </component> <component> &lt ;observation moodCode="EVN" classCode="OBS"> &lt ;templateId root="2.16.840.1.356654.10.20.22.4.2" /> < id nullFlavor="NA" /> <code codeSystem="local&quot ; code="200.0452" displayName="Protein,Urine - Dipstick - MK&quot ; /> <statusCode code="completed" /> < effectiveTime value="956849801386" /> <value unit=&quot ;" xsi:type="PQ" value="TRACE" /> < referenceRange> <observationRange> <text> NEGATIVE</text> </observationRange> </ referenceRange> </observation> </component> < component> <observation moodCode="EVN" classCode=" OBS"> <templateId root="2.16.840.1.371322.10.20.22.4.2& quot; /> <id nullFlavor="NA" /> <code codeSystem="local" code="200.0502" displayName="Glucose ,Urine - Dipstick - MK" /> <statusCode code="completed& quot; /> <effectiveTime value="937820909596" /> <value unit="" xsi:type="PQ" value="NEGATIVE& quot; /> <referenceRange> <observationRange> <text>NEGATIVE</text> </observationRange > </referenceRange> </observation> </component > <component> <observation moodCode="EVN" classCode="OBS"> <templateId root=" 2.16.840.1.477010.10.20.22.4.2" /> <id nullFlavor="NA& quot; /> <code codeSystem="local" code="200.0602& quot; displayName="Ketones,Urine - Dipstick - MK" /> < statusCode code="completed" /> <effectiveTime value=& quot;615992690062" /> <value unit="" xsi:type=& quot;PQ" value="NEGATIVE" /> <referenceRange> <observationRange> <text>NEGATIVE</text& gt; </observationRange> </referenceRange> </observation> </component> <component> < observation moodCode="EVN" classCode="OBS"> < templateId root="2.16.840.1.445189.10.20.22.4.2" /> < id nullFlavor="NA" /> <code codeSystem="local&quot ; code="200.0742" displayName="Urobilinogen,Urine - MK" /&gt ; <statusCode code="completed" /> < effectiveTime value="008496138489" /> <value unit=&quot ;EU/DL" xsi:type="PQ" value="0.2" /> < referenceRange> <observationRange> <text> NORMAL</text> </observationRange> </ referenceRange> </observation> </component> < component> <observation moodCode="EVN" classCode=" OBS"> <templateId root="2.16.840.1.316934.10..22.4.2& quot; /> <id nullFlavor="NA" /> <code codeSystem="local" code="200.0752" displayName=" Bilirubin,Urine - Dipstick -MK" /> <statusCode code=" completed" /> <effectiveTime value="195454236012" /> <value unit="" xsi:type="PQ" value=" NEGATIVE" /> <referenceRange> < observationRange> <text>NEGATIVE</text> & lt;/observationRange> </referenceRange> </ observation> </component> <component> < observation moodCode="EVN" classCode="OBS"> < templateId root="2.16.840.1.692998.10..22.4.2" /> < id nullFlavor="NA" /> <code codeSystem="local&quot ; code="200.0827" displayName="Occult Blood,Miqax-Wtonrlfu-WC& quot; /> <statusCode code="completed" /> & lt;effectiveTime value="364434820718" /> <value unit=& quot;" xsi:type="PQ" value="1+" /> < referenceRange> <observationRange> <text> NEGATIVE</text> </observationRange> </ referenceRange> </observation> </component> </ organizer> </entry> <entry> <organizer moodCode="EVN " classCode="BATTERY"> <templateId root=" 2.16.840.1.735790.10.20.22.4.1" /> <id nullFlavor="NA&quot ; /> <code codeSystem="local" code="LUAMIC-MK" displayName="L200.0052" /> <statusCode code="completed " /> <component> <observation moodCode="EVN& quot; classCode="OBS"> <templateId root=" 2.16.840.1.523584.10.20.22.4.2" /> <id nullFlavor="NA& quot; /> <codecodeSystem="local" code="200.0152& quot; displayName="Specimen Type, Urine - MK" /> < statusCode code="completed" /> <effectiveTime value=& quot;771108628925" /> <value unit="" xsi:type=& quot;PQ" value="Urine, Clean Catch" /> < referenceRange> <observationRange> <text> NRG</text> </observationRange> </ referenceRange> </observation> </component> < component> <observation moodCode="EVN" classCode=" OBS"> <templateId root="2.16.840.1.151719.10.20.22.4.2& quot; /> <id nullFlavor="NA" /> <code codeSystem="local" code="200.0202" displayName="Color, Urine - MK" /> <statusCode code="completed" /> <effectiveTime value="288949107841" /> < value unit="" xsi:type="PQ" value="YELLOW" /> <referenceRange> <observationRange> <text>YELLOW</text> </observationRange> </referenceRange> </observation> </component> & lt;component> <observation moodCode="EVN" classCode=&quot ;OBS"> <templateId root="2.16.840.1.259812.10.20.22.4.2 " /> <id nullFlavor="NA" /> <code codeSystem="local" code="200.0302" displayName="Clarity ,Urine - MK" /> <statusCode code="completed" /> <effectiveTime value="655935551273" /> <value unit="" xsi:type="PQ" value="CLOUDY" /> <referenceRange> <observationRange> < text>NRG</text> </observationRange> </ referenceRange> </observation> </component> < component> <observation moodCode="EVN" classCode=" OBS"> <templateId root="2.16.840.1.014521.10.20.22.4.2& quot; /> <id nullFlavor="NA" /> <code codeSystem="local" code="200.0327" displayName=" Specific [place],Urine - MK" /><statusCode code="completed&quot ; /> <effectiveTime value="308629273545" /> <value unit="" xsi:type="PQ" value="1.020" /& gt; <referenceRange> <observationRange> <text>1.015-1.025</text> </observationRange> </referenceRange> </observation> </ component> <component> <observation moodCode="EVN& quot; classCode="OBS"> <templateId root=" 2.16.840.1.134761.10.20.22.4.2" /> <id nullFlavor="NA& quot; /> <code codeSystem="local" code="200.0352& quot; displayName="PH,Urine - MK" /> <statusCode code=& quot;completed" /> <effectiveTime value="685477902505& quot; /> <value unit="" xsi:type="PQ" value=& quot;5.0" /> <referenceRange> < observationRange> <text>5.0-8.0</text> &lt ;/observationRange> </referenceRange> </observation& gt; </component> <component> <observation moodCode=& quot;EVN" classCode="OBS"> <templateId root=" 2.16.840.1.115946.10.20.22.4.2" /> <id nullFlavor="NA&quot ; /> <code codeSystem="local" code="200.0412&quot ; displayName="Leukocyte Esterase,Urine - MK" /> < statusCode code="completed" /> <effectiveTime value=& quot;790472010823" /> <value unit="" xsi:type="PQ " value="1+" /> <referenceRange> &lt ;observationRange> <text>NEGATIVE</text> &lt ;/observationRange> </referenceRange> </observation& gt;</component> <component> <observation moodCode=& quot;EVN" classCode="OBS"> <templateId root=" 2.16.840.1.102246.10.20.22.4.2" /> <id nullFlavor="NA" /> <code codeSystem="local" code="200.0422" displayName="Nitrate,Urine - MK" /> <statusCode code=& quot;completed" /> <effectiveTime value="550410486484& quot; /> <value unit="" xsi:type="PQ" value=& quot;POSITIVE" /> <referenceRange> < observationRange> <text>NEGATIVE</text> </ observationRange> </referenceRange> </observation&gt ; </component> <component> <observation moodCode ="EVN" classCode="OBS"> <templateId root=& quot;2.16.840.1.442043.10.20.22.4.2" /> <id nullFlavor=&quot ;NA" /> <code codeSystem="local" code=" 200.0452" displayName="Protein,Urine - Dipstick - MK" /> <statusCode code="completed" /> <effectiveTime value="998480946315" /> <value unit="" xsi: type="PQ" value="TRACE" /> <referenceRange&gt ; <observationRange> <text>NEGATIVE</text > </observationRange> </referenceRange> </ observation> </component> <component> < observation moodCode="EVN" classCode="OBS"> < templateId root="2.16.840.1.743980.10.20.22.4.2" /> < id nullFlavor="NA" /> <code codeSystem="local&quot ; code="200.0502" displayName="Glucose,Urine - Dipstick - MK&quot ; /> <statusCode code="completed" /> < effectiveTime value="795077490557" /> <value unit=&quot ;" xsi:type="PQ" value="NEGATIVE" /> < referenceRange> <observationRange> <text> NEGATIVE</text> </observationRange> </ referenceRange> </observation> </component> < component> <observation moodCode="EVN" classCode=" OBS"> <templateId root="2.16.840.1.168780.10.20.22.4.2& quot; /> <id nullFlavor="NA" /> <code codeSystem="local" code="200.0602" displayName="Ketones ,Urine - Dipstick - MK" /> <statusCode code="completed& quot; /> <effectiveTime value="812112150156" /> &lt ;value unit="" xsi:type="PQ" value="NEGATIVE" /&gt ; <referenceRange> <observationRange> <text>NEGATIVE</text> </observationRange> </referenceRange> </observation> </component> <component> <observation moodCode="EVN" classCode=& quot;OBS"> <templateId root=" 2.16.840.1.633124.10.20.22.4.2" /> <id nullFlavor="NA&quot ; /> <code codeSystem="local" code="200.0742&quot ; displayName="Urobilinogen,Urine - MK" /> <statusCode code="completed" /> <effectiveTime value=" 319723009681" /><value unit="EU/DL" xsi:type="PQ&quot ; value="0.2" /> <referenceRange> < observationRange> <text>NORMAL</text> </ observationRange> </referenceRange> </observation&gt ; </component> <component> <observation moodCode ="EVN" classCode="OBS"> <templateId root=& quot;2.16.840.1.208053.10.20.22.4.2" /> <id nullFlavor="NA& quot; /> <code codeSystem="local" code="200.0752& quot; displayName="Bilirubin,Urine - Dipstick -MK" /> < statusCode code="completed" /> <effectiveTime value=& quot;393025122555" /> <value unit="" xsi:type="PQ& quot; value="NEGATIVE" /> <referenceRange> <observationRange> <text>NEGATIVE</text> </observationRange> </referenceRange> </ observation> </component> <component> < observation moodCode="EVN" classCode="OBS"> < templateId root="2.16.840.1.248961.10.20.22.4.2" /> <id nullFlavor="NA" /> <code codeSystem="local" code="200.0827" displayName="Occult Blood,Shewe-Zddjiucf-ZH&quot ; /> <statusCode code="completed" /> < effectiveTime value="236093620470" /> <value unit="& quot; xsi:type="PQ" value="1+" /> < referenceRange> <observationRange> <text> NEGATIVE</text> </observationRange> </ referenceRange> </observation> </component> < component> <observation moodCode="EVN" classCode=" OBS"> <templateId root="2.16.840.1.726635.10.20.22.4.2& quot; /> <id nullFlavor="NA" /> <code codeSystem="local" code="200.1002" displayName="RBC, Urine - MK" /> <statusCode code="completed" /> <effectiveTime value="772419950380" /> < value unit="/HPF" xsi:type="PQ" value="5-10" /&gt ; <interpretationCode codeSystem="local" code="*&quot ; /> <referenceRange> <observationRange> <text>0-3</text> </observationRange> </ referenceRange> </observation> </component> < component> <observation moodCode="EVN" classCode=" OBS"> <templateId root="2.16.840.1.406332.10.20.22.4.2& quot; /> <id nullFlavor="NA" /> <code codeSystem="local" code="200.1052" displayName="WBC, Urine - MK" /> <statusCode code="completed" /> <effectiveTime value="233368927197" /> < value unit="/HPF" xsi:type="PQ" value="50-200" /& gt; <interpretationCode codeSystem="local" code="*& quot; /> <referenceRange> <observationRange> <text>0-5</text> </observationRange> </referenceRange> </observation> </component& gt; <component> <observation moodCode="EVN" classCode="OBS"> <templateId root=" 2.16.840.1.409799.10.20.22.4.2" /> <id nullFlavor="NA& quot; /> <code codeSystem="local" code="200.1102& quot; displayName="WBC Clumps,Urine - MK" /> < statusCode code="completed" /> <effectiveTime value=& quot;072477831099" /> <value unit="" xsi:type=& quot;PQ" value="Few" /> <referenceRange> <observationRange> <text>NRG</text> </observationRange> </referenceRange> </ observation> </component> <component> < observation moodCode="EVN" classCode="OBS"> < templateId root="2.16.840.1.436818.10.20.22.4.2" /> < id nullFlavor="NA" /> <code codeSystem="local&quot ; code="200.1152" displayName="Squamous Epithelial Cell,Ur-MK& quot; /> <statusCode code="completed" /> & lt;effectiveTime value="111329475090" /> <value unit=& quot;" xsi:type="PQ" value="0-5" /> < referenceRange> <observationRange> <text> NRG</text> </observationRange> </ referenceRange> </observation> </component> < component> <observation moodCode="EVN" classCode=" OBS"> <templateId root="2.16.840.1.586805.10.20.22.4.2& quot; /> <id nullFlavor="NA" /> <code codeSystem="local" code="200.1702" displayName=" Amorphous Sediment,Urine-MK" /> <statusCode code="completed " /> <effectiveTime value="190001071541" /> <value unit="" xsi:type="PQ" value="Many&quot ;/> <referenceRange> <observationRange> <text>NRG</text> </observationRange> </referenceRange> </observation> </component&gt ; <component> <observation moodCode="EVN" classCode="OBS"> <templateId root=" 2.16.840.1.335526.10.20.22.4.2" /> <id nullFlavor="NA& quot; /> <code codeSystem="local" code="200.1752& quot; displayName="Bacteria,Urine-MK" /> <statusCode code="completed" /> <effectiveTime value=" 758829570193" /> <value unit="" xsi:type="PQ& quot; value="2+" /> <interpretationCode codeSystem=& quot;local" code="*" /> <referenceRange> <observationRange> <text>NEGATIVE</text> </observationRange> </referenceRange> < /observation> </component> <component> < observation moodCode="EVN" classCode="OBS"> < templateId root="2.16.840.1.364299.10.20.22.4.2" /> < idnullFlavor="NA" /> <code codeSystem="local&quot ; code="200.2302" displayName="Mucus,Urine-MK" /> <statusCode code="completed" /> <effectiveTime value="400967952880" /> <value unit="" xsi: type="PQ" value="Present" /> <referenceRange& gt; <observationRange> <text>NRG</text> </observationRange> </referenceRange> </ observation> </component> <component> < observation moodCode="EVN" classCode="OBS"> < templateId root="2.16.840.1.261875.10.20.22.4.2" /> < id nullFlavor="NA" /> <code codeSystem="local&quot ; code="200.2602" displayName="Culture Indicated,Ur-UAMIC-MK&quot ; /> <statusCode code="completed" /> < effectiveTime value="330477295088" /> <value unit=&quot ;" xsi:type="PQ" value="Cult reflexed &setup" / > <referenceRange> <observationRange> <text>NRG</text> </observationRange> </referenceRange> </observation> </component> </organizer> </entry> <entry> <organizer moodCode=& quot;EVN" classCode="BATTERY"> <templateId root=" 2.16.840.1.312361.10.20.22.4.1" /> <id nullFlavor="NA&quot ; /> <code codeSystem="local" code="MCUUR-A" displayName="M750.1005" /> <statusCode code="completed " /> <component> <observation moodCode="EVN& quot; classCode="OBS"> <templateId root=" 2.16.840.1.122248.10.20.22.4.2" /> <id nullFlavor="NA& quot; /> <code codeSystem="local" code="950.1630& quot; displayName="Urine Culture - AMS" /> <statusCode code="completed" /> <effectiveTime value=" 508538212723" /> <value unit="" xsi:type="PQ& quot; value=" Source: Urine Collected: 12:57 " /> <referenceRange> < observationRange> <text>NRG</text> </ observationRange> </referenceRange> </observation&gt ; </component> </organizer> </entry> <entry> <organizer moodCode="EVN" classCode="BATTERY"> <templateId root="2.16.840.1.715490.10.20.22.4.1" /> < id nullFlavor="NA" /> <code codeSystem="local" code="RODO-MK" displayName="L200.0113" /> < statusCode code="completed" /> <component> < observation moodCode="EVN" classCode="OBS"> < templateId root="2.16.840.1.695205.10.20.22.4.2" /> < id nullFlavor="NA" /> <code codeSystem="local" code=& quot;200.0152" displayName="Specimen Type, Urine - MK" /> <statusCode code="completed" /> < effectiveTime value="285910553811" /> <value unit=&quot ;" xsi:type="PQ"value="Urine, Clean Catch" /> <referenceRange> <observationRange> < text>NRG</text> </observationRange> </ referenceRange> </observation> </component> < component> <observation moodCode="EVN" classCode="OBS&quot ;> <templateId root="2.16.840.1.957623.10.20.22.4.2" /& gt; <id nullFlavor="NA" /> <code codeSystem=& quot;local" code="200.0202" displayName="Color, Urine- MK& quot; /> <statusCode code="completed" /> & lt;effectiveTimevalue="093789199376" /> <value unit=& quot;" xsi:type="PQ" value="YELLOW" /> < referenceRange> <observationRange> <text>YELLOW </text> </observationRange> </referenceRange& gt; </observation> </component> <component> <observation moodCode="EVN" classCode="OBS"> <templateId root="2.16.840.1.691563.10.20.22.4.2" /> <id nullFlavor="NA" /> <code codeSystem=&quot ;local" code="200.0302" displayName="Clarity,Urine - MK&quot ;/> <statusCode code="completed" /> < effectiveTime value="525690401933" /> <value unit=&quot ;" xsi:type="PQ" value="CLEAR" /> < referenceRange> <observationRange> <text> NRG</text> </observationRange> </ referenceRange> </observation> </component> < component> <observation moodCode="EVN" classCode=" OBS"> <templateId root="2.16.840.1.798776.10.20.22.4.2& quot; /> <id nullFlavor="NA" /> <code codeSystem="local" code="200.0327" displayName=" Specific [place],Urine - MK" /> <statusCode code=" completed" /> <effectiveTime value="647219764735" /> <value unit="" xsi:type="PQ" value=" 1.015" /> <referenceRange> < observationRange> <text>1.015-1.025</text> </observationRange> </referenceRange> </observation > </component> <component> <observation moodCode="EVN" classCode="OBS"> <templateId root="2.16.840.1.701271.10.20.22.4.2" /> <id nullFlavor ="NA" /> <code codeSystem="local" code=" 200.0352" displayName="PH,Urine - MK" /> < statusCode code="completed" /> <effectiveTime value=& quot;911260006422" /> <value unit="" xsi:type=& quot;PQ" value="5.5" /> <referenceRange> <observationRange> <text>5.0-8.0</text> </observationRange> </referenceRange> </ observation> </component> <component> < observation moodCode="EVN"classCode="OBS"> < templateId root="2.16.840.1.488790.10.20.22.4.2" /> < id nullFlavor="NA" /> <code codeSystem="local&quot ; code="200.0412" displayName="Leukocyte Esterase,Urine - MK&quot ; /> <statusCode code="completed" /> < effectiveTime value="247777682597"/> <value unit=" " xsi:type="PQ" value="TRACE" /> < referenceRange> <observationRange> <text> NEGATIVE</text> </observationRange> </ referenceRange> </observation> </component> < component> <observation moodCode="EVN" classCode=" OBS"> <templateId root="2.16.840.1.538964.10.20.22.4.2& quot; /> <id nullFlavor="NA" /> <code codeSystem="local" code="200.0422" displayName="Nitrate ,Urine - MK" /> <statusCodecode="completed" /> <effectiveTime value="399559011878" /> <value unit="" xsi:type="PQ" value="NEGATIVE" /> <referenceRange> <observationRange> &lt ;text>NEGATIVE</text> </observationRange> &lt ;/referenceRange> </observation> </component> &lt ;component> <observation moodCode="EVN" classCode=" OBS"> <templateId root="2.16.840.1.842487.10.20.22.4.2& quot; /> <id nullFlavor="NA" /> <code codeSystem="local" code="200.0452" displayName="Protein ,Urine - Dipstick - MK" /> <statusCode code="completed& quot; /> <effectiveTime value="942457760491" /> <value unit="" xsi:type="PQ" value="NEGATIVE& quot; /> <referenceRange> <observationRange> <text>NEGATIVE</text> </observationRange> </referenceRange> </observation> </component& gt; <component> <observation moodCode="EVN" classCode="OBS"> <templateId root=" 2.16.840.1.641004.10.20.22.4.2" /> <id nullFlavor="NA& quot; /> <code codeSystem="local" code="200.0502& quot; displayName="Glucose,Urine - Dipstick - MK" /> < statusCode code="completed" /> <effectiveTime value=& quot;820189956489" /> <value unit="" xsi:type=& quot;PQ" value="NEGATIVE" /> <referenceRange> <observationRange> <text>NEGATIVE</text> </observationRange> </referenceRange> &lt ;/observation> </component> <component> < observation moodCode="EVN" classCode="OBS"> < templateId root="2.16.840.1.044638.10.20.22.4.2" /> < id nullFlavor="NA" /> <code codeSystem="local&quot ; code="200.0602" displayName="Ketones,Urine - Dipstick - MK&quot ; /> <statusCode code="completed" /> < effectiveTime value="559447810835" /> <value unit=&quot ;" xsi:type="PQ" value="NEGATIVE" /> < referenceRange> <observationRange> <text> NEGATIVE</text> </observationRange> </ referenceRange> </observation> </component> < component> <observation moodCode="EVN" classCode=" OBS"> <templateId root="2.16.840.1.757248.10.20.22.4.2& quot; /> <id nullFlavor="NA" /> <code codeSystem="local" code="200.0742" displayName=" Urobilinogen,Urine - MK" /> <statusCode code="completed " /> <effectiveTime value="376408593294"/> <value unit="EU/DL" xsi:type="PQ" value="0.2& quot; /> <referenceRange> <observationRange> <text>NORMAL</text> </observationRange&gt ; </referenceRange> </observation> </ component> <component> <observation moodCode="EVN& quot; classCode="OBS"> <templateId root=" 2.16.840.1.413490.10.20.22.4.2" /> <id nullFlavor="NA& quot; /> <code codeSystem="local" code="200.0752& quot; displayName="Bilirubin,Urine - Dipstick -MK" /> < statusCode code="completed" /> <effectiveTime value=& quot;733335751710" /> <value unit="" xsi:type=& quot;PQ" value="NEGATIVE" /> <referenceRange> <observationRange> <text>NEGATIVE</text& gt; </observationRange> </referenceRange> </observation> </component> <component> &lt ;observation moodCode="EVN" classCode="OBS"> &lt ;templateId root="2.16.840.1.670972.10..22.4.2" /> < id nullFlavor="NA" /> <code codeSystem="local&quot ; code="200.0827" displayName="Occult Blood,Ijltg-Mfczzyok-TQ& quot; /> <statusCode code="completed" /> < effectiveTime value="659707742678" /> <value unit=&quot ;" xsi:type="PQ" value="NEGATIVE" /> < referenceRange> <observationRange> <text> NEGATIVE</text> </observationRange> </ referenceRange> </observation> </component> < component> <observation moodCode="EVN" classCode=" OBS"> <templateId root="2.16.840.1.448355.10.20.22.4.2& quot; /> <id nullFlavor="NA" /> <code codeSystem="local" code="200.0993" displayName="Urine Microscopic (UA-MK)" /> <statusCode code="completed" /&gt ; <effectiveTime value="951142976655" /> < value unit="" xsi:type="PQ" value="Microscopic Not Ind. " /> <referenceRange> <observationRange&gt ; <text>NRG</text> </observationRange&gt ; </referenceRange> </observation> </component& gt; </organizer> </entry> <entry> <organizer moodCode="EVN" classCode="BATTERY"> <templateId root="2.16.840.1.960434.10.20.22.4.1" /> <id nullFlavor=& quot;NA" /> <code codeSystem="local" code="MCUUR- A" displayName="M750.1005" /> <statusCode code=" completed" /> <component> <observation moodCode=& quot;EVN" classCode="OBS"> <templateId root=" 2.16.840.1.837951.10.20.22.4.2" /> <id nullFlavor="NA& quot; /> <code codeSystem="local" code="950.1630& quot; displayName="Urine Culture - AMS" /> <statusCode code="completed" /> <effectiveTime value=" 325446207576" /> <value unit="" xsi:type="PQ& quot; value=" Source:Urine Collected: 12:33 " /> <referenceRange> < observationRange> <text>NRG</text> </ observationRange> </referenceRange> </observation&gt ; </component> </organizer> </entry> <entry> <organizer moodCode="EVN" classCode="BATTERY"> <templateId root="2.16.840.1.367969.10.20.22.4.1" /> < id nullFlavor="NA" /> <code codeSystem="local" code="LDD" displayName="L160.0135" /> < statusCode code="completed" /> <component> < observation moodCode="EVN" classCode="OBS"> < templateId root="2.16.840.1.109702.10.20.22.4.2" /> < id nullFlavor="NA" /> <code codeSystem="local&quot ; code="150.0650" displayName="D-DIMER." /> < statusCode code="completed" /> <effectiveTime value=" 137651062326" /> <value unit="NG/ML" xsi:type=& quot;PQ" value="200" /> <referenceRange> <observationRange> <text>0-230</text> </observationRange> </referenceRange> </ observation> </component> </organizer> </entry> & lt;entry> <organizer moodCode="EVN" classCode="BATTERY& quot;> <templateId root="2.16.840.1.429035.10.20.22.4.1" /& gt; <id nullFlavor="NA" /> <code codeSystem=" local" code="LCBC" displayName="L100.0050" /> & lt;statusCode code="completed" /> <component> &lt ;observation moodCode="EVN" classCode="OBS"> &lt ;templateId root="2.16.840.1.480838.10.20.22.4.2" /> < id nullFlavor="NA" /> <code codeSystem="local&quot ; code="100.0150" displayName="WBC - WHITE BLOOD COUNT" /&gt ; <statusCode code="completed" /> <effectiveTime value="161099089629" /> <value unit="T/MM3" xsi:type="PQ" value="9.2" /> <referenceRange& gt; <observationRange> <text>4.5-11.0</ text> </observationRange> </referenceRange> </observation> </component> <component> <observation moodCode="EVN" classCode="OBS"> <templateId root="2.16.840.1.358028.10.20.22.4.2" /> & lt;id nullFlavor="NA" /> <code codeSystem="local& quot; code="100.0250" displayName="RED BLOOD COUNT" /> <statusCode code="completed" /> < effectiveTime value="988711938812" /> <value unit=&quot ;M/MM3" xsi:type="PQ" value="4.10" /> < referenceRange> <observationRange> <text> 4.00-5.20</text> </observationRange></referenceRange& gt; </observation> </component> <component> <observation moodCode="EVN" classCode="OBS"> <templateId root="2.16.840.1.640820.10..22.4.2" /> <id nullFlavor="NA" /> <code codeSystem=" local" code="100.0300" displayName="HGB - HEMOGLOBIN" / > <statusCode code="completed" /> < effectiveTime value="434790074565" /> <value unit=&quot ;GM/DL" xsi:type="PQ" value="12.7" /> < referenceRange> <observationRange> <text> 12-16</text> </observationRange> </ referenceRange> </observation> </component> < component> <observation moodCode="EVN" classCode=" OBS"> <templateId root="2.16.840.1.868970.10.20.22.4.2& quot; /> <id nullFlavor="NA" /> <code codeSystem="local" code="100.0400" displayName="HCT - HEMATOCRIT" /> <statusCode code="completed" /> <effectiveTime value="015687499781" /> < value unit="%" xsi:type="PQ" value="38.9" /> <referenceRange> <observationRange> & lt;text>36-46</text> </observationRange> < /referenceRange> </observation> </component> &lt ;component> <observation moodCode="EVN" classCode=" OBS"> <templateId root="2.16.840.1.360949.10.20.22.4.2& quot; /> <id nullFlavor="NA" /> < codecodeSystem="local" code="100.0550" displayName=" MEAN CORPUSCULAR VOLUME" /> <statusCode code="completed " /> <effectiveTime value="146262981450" /> <value unit="UM3" xsi:type="PQ" value="94.9& quot; /> <referenceRange> <observationRange>& lt;text>80-100</text> </observationRange> &lt ;/referenceRange> </observation> </component> & lt;component> <observation moodCode="EVN" classCode=&quot ;OBS"> <templateId root="2.16.840.1.758992.10.20.22.4.2 " /> <id nullFlavor="NA" /> <code codeSystem="local" code="100.0600" displayName="MEAN CORPUSCULAR HGB" /> <statusCode code="completed" /& gt; <effectiveTime value="888447463266" /> &lt ;value unit="UUG" xsi:type="PQ" value="31.0" /&gt ; <referenceRange> <observationRange> <text>26-34</text> </observationRange> </referenceRange> </observation> </component> <component> <observation moodCode="EVN" classCode= "OBS"> <templateId root=" 2.16.840.1.035186.10.20.22.4.2" /> <id nullFlavor="NA& quot; /> <code codeSystem="local" code="100.0650& quot; displayName="MEAN CORPUSCULAR HGB CONC(MCHC" /> < statusCode code="completed" /> <effectiveTime value=& quot;310652896441" /> <value unit="GM/DL" xsi:type ="PQ" value="32.6" /> <referenceRange> <observationRange> <text>31-37</text> </observationRange> </referenceRange> </ observation> </component> <component> < observation moodCode="EVN" classCode="OBS"> < templateId root="2.16.840.1.667841.10.20.22.4.2" /> < id nullFlavor="NA" /> <code codeSystem="local&quot ; code="100.0750" displayName="RDW STANDARD DEVIATION" /&gt ; <statusCode code="completed" /> < effectiveTime value="927487664026" /> <value unit=&quot ;FL" xsi:type="PQ" value="53.8" /> < interpretationCode codeSystem="local" code="*" /> < referenceRange> <observationRange> <text> 36.9-50.2</text> </observationRange> </ referenceRange> </observation> </component> < component> <observation moodCode="EVN" classCode=" OBS"> <templateId root="2.16.840.1.327714.10.20.22.4.2& quot; /> <id nullFlavor="NA" /> <code codeSystem="local" code="100.0850" displayName="PLT - PLATELET COUNT" /> <statusCode code="completed" /& gt; <effectiveTime value="952432615771" /> < value unit="T/MM3" xsi:type="PQ" value="211" /&gt ; <referenceRange> <observationRange> <text>130-400</text> </observationRange> </referenceRange> </observation> </component> <component> <observation moodCode="EVN" classCode=& quot;OBS"> <templateId root=" 2.16.840.1.350999.10.20.22.4.2" /> <id nullFlavor="NA& quot; /> <code codeSystem="local" code="100.0950& quot; displayName="MEAN PLATELET VOLUME" /> < statusCode code="completed" /> <effectiveTime value=& quot;823931609319" /> <value unit="UM3" xsi:type=& quot;PQ" value="9.9" /> <referenceRange> <observationRange> <text>9.4-12.4</text> </observationRange> </referenceRange> </ observation> </component> </organizer> </entry> & lt;entry> <organizer moodCode="EVN" classCode="BATTERY& quot;> <templateId root="2.16.840.1.412124.10.20.22.4.1" /& gt; <id nullFlavor="NA" /> <code codeSystem=" local" code="LDIFFM" displayName="L100.0105" /> <statusCode code="completed" /> <component> <observation moodCode="EVN" classCode="OBS"> <templateId root="2.16.840.1.835749.10.20.22.4.2" /> <id nullFlavor="NA" /> <code codeSystem="local" code="100.1650" displayName="NEUTROPHILS % (MANUAL)&quot ; /> <statusCode code="completed" /> < effectiveTime value="569405363857" /> <value unit="& #37;" xsi:type="PQ" value="84.0" /> < interpretationCode codeSystem="local" code="*" /> <referenceRange> <observationRange> < text>33-66</text></observationRange> </referenceRange > </observation> </component> <component> <observation moodCode="EVN" classCode="OBS"> <templateId root="2.16.840.1.100995.10.20.22.4.2" /> <id nullFlavor="NA" /> <code codeSystem=& quot;local" code="100.1750" displayName="BAND NEUTROPHILS & amp;#37;" /> <statusCode code="completed" /> <effectiveTime value="543133895832" /> < value unit="%" xsi:type="PQ" value="2.0" / > <referenceRange> <observationRange> <text>0-6</text></observationRange> </ referenceRange> </observation> </component> < component> <observation moodCode="EVN" classCode=" OBS"> <templateId root="2.16.840.1.865890.10.20.22.4.2& quot; /> <id nullFlavor="NA" /> <code codeSystem="local" code="100.1850" displayName=" LYMPHOCYTES % (MANUAL)" /> <statusCode code=" completed" /> <effectiveTime value="312867877025" /> <value unit="%" xsi:type="PQ" value="11.0" /> <interpretationCode codeSystem=" local" code="*" /> <referenceRange> <observationRange> <text>23-45</text> </observationRange> </referenceRange> </ observation> </component> <component> < observation moodCode="EVN" classCode="OBS"> < templateId root="2.16.840.1.770428.10.20.22.4.2" /> < id nullFlavor="NA" /> <code codeSystem="local&quot ; code="100.1950" displayName="MONOCYTES % (MANUAL)&quot ; /> <statusCode code="completed" /> < effectiveTime value="754450289078" /> <value unit=&quot ;%" xsi:type="PQ" value="1.0" /> & lt;referenceRange> <observationRange> <text& gt;0-9.0</text> </observationRange> </ referenceRange> </observation> </component> < component> <observation moodCode="EVN" classCode=" OBS"> <templateId root="2.16.840.1.427645.10.20.22.4.2& quot; /> <id nullFlavor="NA" /> <code codeSystem="local" code="100.2250" displayName=" MYELOCYTES %" /> <statusCode code="completed& quot; /> <effectiveTime value="417077381773" /> <value unit="%" xsi:type="PQ" value=" 2.0" /> <interpretationCode codeSystem="local" code="*" /> <referenceRange> < observationRange> <text>0-0</text> </ observationRange> </referenceRange> </observation&gt ; </component> <component> <observation moodCode ="EVN" classCode="OBS"> <templateId root=& quot;2.16.840.1.292412.10.20.22.4.2" /> <id nullFlavor=&quot ;NA" /> <code codeSystem="local" code=" 100.2400" displayName="PROLYMPHOCYTES %" /> & lt;statusCode code="completed" /> <effectiveTime value=" 963148744150" /> <value unit="T/MM3" xsi:type=& quot;PQ" value="7.7" /> <referenceRange> <observationRange> <text>1.8-7.7</text> </observationRange> </referenceRange> </ observation> </component> <component> < observation moodCode="EVN" classCode="OBS"> < templateId root="2.16.840.1.265477.10.20.22.4.2" /> < id nullFlavor="NA" /> <code codeSystem="local&quot ; code="100.2450" displayName="PLASMA CELLS %" /&gt ; <statusCode code="completed" /> < effectiveTime value="463753103878" /> <value unit=&quot ;T/MM3" xsi:type="PQ" value="0.2" /> < referenceRange> <observationRange> <text> NRG</text> </observationRange></referenceRange> </observation> </component> <component> &lt ;observation moodCode="EVN" classCode="OBS"> &lt ;templateId root="2.16.840.1.302765.10.20.22.4.2" /> < id nullFlavor="NA" /> <code codeSystem="local&quot ; code="100.2650" displayName="NEUTROPHILS # (MANUAL)" /&gt ; <statusCode code="completed" /> < effectiveTime value="986738137111" /> <value unit=&quot ;T/MM3" xsi:type="PQ" value="0.1" /> < referenceRange> <observationRange> <text> 0-0.8</text> </observationRange> </ referenceRange> </observation> </component> < component> <observation moodCode="EVN" classCode=" OBS"> <templateId root="2.16.840.1.939889.10..22.4.2& quot; /> <id nullFlavor="NA" /> <code codeSystem="local" code="100.2950" displayName=" MYELOCYTES #" /> <statusCode code="completed" /&gt ; <effectiveTime value="694416456913" /> < value unit="T/MM3" xsi:type="PQ" value="0.2" /&gt ; <referenceRange> <observationRange> <text& gt;NRG</text> </observationRange> </ referenceRange> </observation> </component> < component> <observation moodCode="EVN" classCode=" OBS"> <templateId root="2.16.840.1.312547.10.20.22.4.2& quot; /> <id nullFlavor="NA" /> <code codeSystem="local" code="100.4650" displayName=" POIKILOCYTOSIS" /> <statusCode code="completed" /> <effectiveTime value="713178356028" /> <value unit="" xsi:type="PQ" value="1+" /> &lt ;referenceRange> <observationRange> <text&gt ;NRG</text> </observationRange> </ referenceRange> </observation> </component> < component> <observation moodCode="EVN"classCode="OBS "> <templateId root="2.16.840.1.760050.10.20.22.4.2& quot; /> <id nullFlavor="NA" /> <code codeSystem="local" code="100.4850" displayName=" POLYCHROMASIA" /> <statusCode code="completed" /& gt; <effectiveTime value="050329957163" /> &lt ;value unit="" xsi:type="PQ" value="1+" /> <referenceRange> <observationRange> & lt;text>NRG</text> </observationRange> </ referenceRange> </observation> </component> < component> <observation moodCode="EVN" classCode=" OBS"> <templateId root="2.16.840.1.621823.10..22.4.2& quot; /> <idnullFlavor="NA" /> <code codeSystem="local" code="100.4900" displayName=" ACANTHOCYTES" /> <statusCode code="completed" /&gt ; <effectiveTime value="205958718467" /> < value unit="" xsi:type="PQ" value="1+" /> <referenceRange> <observationRange> &lt ;text>NRG</text> </observationRange> </ referenceRange> </observation> </component> < component> <observation moodCode="EVN" classCode=" OBS"> <templateId root="2.16.840.1.903541.10..22.4.2& quot; /> <id nullFlavor="NA" /> <code codeSystem="local" code="100.2550" displayName=" Lymphocytes # (Manual)" /> <statusCode code="completed& quot; /> <effectiveTime value="582950911781" /> <value unit="T/MM3" xsi:type="PQ" value="1.0& quot; /> <referenceRange> <observationRange> <text>1-4.8</text> </observationRange&gt ; </referenceRange> </observation> </component> <component> <observation moodCode="EVN" classCode= "OBS"> <templateId root=" 2.16.840.1.014971.10.20.22.4.2" /> <id nullFlavor="NA& quot; /> <code codeSystem="local" code="100.4565& quot; displayName="LRBCMOR" /> <statusCode code=" completed" /> <effectiveTime value="875188410205" /> <value unit="" xsi:type="PQ" value=" Abnormal" /> <referenceRange> < observationRange> <text>NRG</text> </ observationRange> </referenceRange> </observation&gt ; </component> </organizer> </entry> <entry> <organizer moodCode="EVN" classCode="BATTERY"> <templateId root="2.16.840.1.139087.10.20.22.4.1" /> < id nullFlavor="NA" /> <code codeSystem="local" code ="LCMP" displayName="L200.0020" /> <statusCode code="completed" /> <component> <observation moodCode="EVN" classCode="OBS"> <templateId root="2.16.840.1.179016.10.20.22.4.2" /> <id nullFlavor ="NA" /> <code codeSystem="local" code=" 300.0400" displayName="FUNGAL CULTURE." /> < statusCode code="completed" /> <effectiveTime value=& quot;134671274092" /> <value unit="mg/dL" xsi:type ="PQ" value="1.2" /> <referenceRange> <observationRange> <text>0.7-1.2</text> </observationRange> </referenceRange></ observation> </component> <component> < observation moodCode="EVN" classCode="OBS"> < templateId root="2.16.840.1.748736.10.20.22.4.2" /> < id nullFlavor="NA" /> <code codeSystem="local&quot ; code="300.0450" displayName="FUNGAL CULTURE, BLOOD." /&gt ; <statusCode code="completed" /> <effectiveTime value="816236582169" /> <value unit="RATIO" xsi:type="PQ" value="26"/> <referenceRange&gt ; <observationRange> <text>6-26</text&gt ; </observationRange> </referenceRange> & lt;/observation> </component> <component> < observation moodCode="EVN" classCode="OBS"> < templateId root="2.16.840.1.416507.10.20.22.4.2" /> < id nullFlavor="NA" /> <code codeSystem="local&quot ; code="300.0100" displayName="NA - Sodium" /> & lt;statusCode code="completed" /> <effectiveTime value= "579187825167" /> <value unit="MEQ/L" xsi:type=& quot;PQ" value="142" /> <referenceRange> <observationRange> <text>134-144</text> </observationRange> </referenceRange> </ observation> </component> <component> < observation moodCode="EVN" classCode="OBS"> < templateId root="[id number]" /> <id nullFlavor="NA" /> <code codeSystem="local" code="300.0150" displayName="Potassium" /> < statusCode code="completed" /> <effectiveTime value=& quot;[id number]" /> <value unit="MEQ/L" xsi:type ="PQ" value="4.9" /> <referenceRange> <observationRange> <text>3.6-5</text> </observationRange> </referenceRange> </ observation> </component> <component> < observation moodCode="EVN" classCode="OBS"> < templateId root="[id number]" /> < id nullFlavor="NA" /> <code codeSystem="local&quot ; code="300.0200"displayName="Chloride" /> < statusCode code="completed" /> <effectiveTime value=" [id number]" /> <value unit="MEQ/L"xsi:type=&quot ;PQ" value="101" /> <referenceRange> <observationRange> <text>98-107</text> </observationRange> </referenceRange> </ observation> </component> <component> < observation moodCode="EVN" classCode="OBS"> < templateId root="2.16.840.1.164815.10.20.22.4.2" /> < id nullFlavor="NA" /> <code codeSystem="local&quot ; code="300.0250" displayName="CO2 - Carbon Dioxide" /> <statusCode code="completed" /> < effectiveTime value="089059458563" /> <value unit=&quot ;MEQ/L" xsi:type="PQ" value="29" /> < referenceRange> <observationRange> <text> 22-30</text> </observationRange></referenceRange> </observation> </component> <component> & lt;observation moodCode="EVN" classCode="OBS"> & lt;templateId root="2.16.840.1.817473.10.20.22.4.2" /> &lt ;id nullFlavor="NA" /> <code codeSystem="local&quot ; code="300.0300" displayName="Anion Gap" /> &lt ;statusCode code="completed" /> <effectiveTime value=& quot;567642246352" /> <value unit="meq/L" xsi:type ="PQ" value="12" /> <referenceRange> <observationRange> <text>5-15</text> < /observationRange> </referenceRange> </observation& gt; </component> <component> < observationmoodCode="EVN" classCode="OBS"> < templateId root="2.16.840.1.403540.10.20.22.4.2" /> < id nullFlavor="NA" /> <code codeSystem="local&quot ; code="300.0350" displayName="BUN - Blood Urea Nitrogen" /& gt; <statusCode code="completed" /> < effectiveTime value="008502658044" /> <value unit=&quot ;MG/DL" xsi:type="PQ" value="31.0" /> < interpretationCode codeSystem="local" code="*"/> <referenceRange> <observationRange> < text>7-17</text> </observationRange> </ referenceRange> </observation> </component> < component> <observation moodCode="EVN" classCode=" OBS"> <templateId root="2.16.840.1.074506.10.20.22.4.2& quot; /> <id nullFlavor="NA" /> <code codeSystem="local" code="300.0410" displayName=" Glomerular Filtration Rate" /> <statusCode code=" completed" /> <effectiveTime value="382306565796" /> <value unit="" xsi:type="PQ" value=" 44" /> <referenceRange> <observationRange> <text>NRG</text> </observationRange> </referenceRange> </observation> </component > <component> <observation moodCode="EVN" classCode="OBS"> <templateId root=" 2.16.840.1.282779.10.20.22.4.2" /> <id nullFlavor="NA& quot; /> <code codeSystem="local" code="300.0500& quot; displayName="Glucose" /> <statusCode code=" completed" /> <effectiveTime value="415657538650" /> <valueunit="MG/DL" xsi:type="PQ" value=& quot;238" /> <interpretationCode codeSystem="local&quot ; code="*" /> <referenceRange> <observationRange > <text>65-110</text> </ observationRange> </referenceRange> </observation&gt ; </component> <component> <observation moodCode ="EVN" classCode="OBS"> <templateId root=" 2.16.840.1.782704.10.20.22.4.2" /> <id nullFlavor="NA& quot; /> <code codeSystem="local" code="300.2000& quot; displayName="Osmolality,Calculated" /> < statusCode code="completed" /> <effectiveTime value=" 702262957067" /> <value unit="MOSM/KG" xsi:type=& quot;PQ" value="288" /> <interpretationCode codeSystem="local" code="*" /> < referenceRange> <observationRange> <text> 261-280</text> </observationRange> </ referenceRange> </observation> </component> < component> <observation moodCode="EVN" classCode="OBS& quot;> <templateId root="2.16.840.1.863371.10.20.22.4.2&quot ; /> <id nullFlavor="NA" /> <code codeSystem="local" code="300.2200" displayName="Calcium " /> <statusCode code="completed" /> & lt;effectiveTime value="691431613158" /> <value unit=& quot;MG/DL" xsi:type="PQ" value="9.5" /> & lt;referenceRange> <observationRange> <text>8.4-10.2& lt;/text> </observationRange> </referenceRange& gt; </observation> </component> <component> <observation moodCode="EVN" classCode="OBS"> <templateId root="2.16.840.1.858471.10.20.22.4.2" /> <id nullFlavor="NA" /> <code codeSystem=&quot ;local" code="300.2700" displayName="Bilirubin,Total" / > <statusCode code="completed" /> < effectiveTime value="136765040930" /> <value unit=&quot ;MG/DL" xsi:type="PQ" value="0.50" /> < referenceRange> <observationRange> <text> 0.20-1.30</text> </observationRange> </ referenceRange> </observation> </component> < component> <observation moodCode="EVN" classCode=" OBS"> <templateId root="2.16.840.1.096233.10.20.22.4.2& quot; /> <id nullFlavor="NA" /> <code codeSystem="local" code="300.2975" displayName=" Alkaline Phosphatase" /> <statusCode code="completed" / > <effectiveTime value="616732072898" /> & lt;value unit="U/L" xsi:type="PQ" value="55"/> <referenceRange> <observationRange> <text>38-126</text> </observationRange> </referenceRange> </observation> </component> <component> <observation moodCode="EVN" classCode= "OBS"> <templateId root=" 2.16.840.1.178673.10.20.22.4.2" /> <id nullFlavor="NA& quot; /> <code codeSystem="local" code="300.3050& quot; displayName="AST - Aspartate Amino Transfer" /> < statusCode code="completed" /> <effectiveTime value=& quot;217607013731" /> <value unit="U/L" xsi:type=& quot;PQ" value="24"/> <referenceRange> <observationRange> <text>14-36</text> </observationRange> </referenceRange> </ observation> </component> <component> < observation moodCode="EVN" classCode="OBS"> < templateId root="2.16.840.1.529577.10.20.22.4.2" /> < id nullFlavor="NA" /> <code codeSystem="local&quot ; code="300.3110" displayName="TP - Total Protein" /> <statusCode code="completed" /> < effectiveTime value="787326688940" /> <value unit=&quot ;g/dL" xsi:type="PQ" value="7.4" /> < referenceRange> <observationRange> <text> 6.3-8.2</text> </observationRange> </ referenceRange> </observation> </component> < component> <observation moodCode="EVN" classCode=" OBS"> <templateId root="2.16.840.1.980802.10.20.22.4.2& quot;/> <id nullFlavor="NA" /> <code codeSystem="local"code="300.3120" displayName="Albumin Level" /> <statusCode code="completed" /> <effectiveTime value="401686079064" /> <value unit="g/dL" xsi:type="PQ" value="4.0" /> <referenceRange> <observationRange> < text>3.5-5.0</text> </observationRange> </ referenceRange> </observation> </component> < component> <observation moodCode="EVN" classCode=" OBS"> <templateId root="2.16.840.1.711830.10.20.22.4.2& quot; /> <id nullFlavor="NA" /> <code codeSystem= "local" code="300.3130" displayName="Globulin" /& gt; <statusCode code="completed" /> < effectiveTime value="413759505161" /> <value unit=&quot ;G/DL" xsi:type="PQ" value="3.4" /> < referenceRange> <observationRange> <text>2.4-3.6 </text> </observationRange> </referenceRange& gt; </observation> </component> <component> <observation moodCode="EVN" classCode="OBS"> &lt ;templateId root="2.16.840.1.190137.10.20.22.4.2" /> < id nullFlavor="NA" /> <code codeSystem="local&quot ; code="300.3140" displayName="Albumin/Globulin Ratio" /&gt ; <statusCode code="completed" /> < effectiveTime value="988969253843" /> <value unit=&quot ;RATIO" xsi:type="PQ" value="1.2" /> < referenceRange> <observationRange> <text>1.1-2.2< /text> </observationRange> </referenceRange> </observation> </component> <component> <observation moodCode="EVN" classCode="OBS"> < templateId root="2.16.840.1.096824.10.20.22.4.2" /> < id nullFlavor="NA" /> <code codeSystem="local&quot ; code="300.0095" displayName="LICTERUS" /> < statusCode code="completed" /> <effectiveTime value=& quot;858874403971" /> <value unit="" xsi:type=& quot;PQ" value="< 2" /> <referenceRange&gt ; <observationRange> <text>0-7</text> </observationRange> </referenceRange> & lt;/observation> </component> <component> < observation moodCode="EVN" classCode="OBS"> < templateId root="2.16.840.1.129957.10..22.4.2" /> < id nullFlavor="NA" /> <code codeSystem="local" code="300.0096" displayName="LHEMOLYSIS" /> < statusCode code="completed" /> <effectiveTime value=& quot;445952948699" /> <value unit="" xsi:type=& quot;PQ" value="< 15" /> <referenceRange&gt ; <observationRange> <text>0-25</text> </observationRange> </referenceRange> </ observation> </component> <component> < observation moodCode="EVN" classCode="OBS"> < templateId root="2.16.840.1.148594.10.20.22.4.2" /> < id nullFlavor="NA" /> <code codeSystem="local&quot ; code="300.0097" displayName="LTURBIDITY" /> < statusCode code="completed" /> <effectiveTime value=& quot;675662514126" /> <value unit="" xsi:type=& quot;PQ" value="< 20" /> <referenceRange&gt ; <observationRange> <text>0-20</text&gt ; </observationRange> </referenceRange> & lt;/observation> </component> <component> < observation moodCode="EVN" classCode="OBS"> < templateId root="2.16.840.1.934112.10.20.22.4.2" /> < id nullFlavor="NA" /> <code codeSystem="local&quot ; code="300.3105" displayName="LALTV" /> < statusCode code="completed" /> <effectiveTime value=& quot;388964527568" /> <value unit="U/L" xsi:type="PQ& quot; value="31" /> <referenceRange> < observationRange> <text>1-35</text> </ observationRange> </referenceRange> </observation&gt ; </component> </organizer> </entry> <entry> <organizer moodCode="EVN" classCode="BATTERY"> <templateId root="2.16.840.1.218903.10.20.22.4.1" /> < id nullFlavor="NA" /> <code codeSystem="local" code="LTROPI" displayName="L300.3490" /> < statusCode code="completed" /> <component> < observation moodCode="EVN" classCode="OBS"> < templateId root="2.16.840.1.500117.10.20.22.4.2" /> <id nullFlavor="NA" /> <code codeSystem="local" code="300.3500" displayName="Troponin I" /> < statusCode code="completed" /> <effectiveTime value=& quot;337224163935" /> <value unit="ng/ml" xsi:type ="PQ" value="< 0.012" /> < referenceRange> <observationRange> <text> 0-0.12</text> </observationRange> </referenceRange> </observation> </component> </organizer> </ entry> <entry> <organizer moodCode="EVN" classCode=& quot;BATTERY"> <templateId root=" 2.16.840.1.094041.10.20.22.4.1" /> <id nullFlavor="NA&quot ; /> <code codeSystem="local" code="LBNP" displayName="L300.3700" /> <statusCode code="completed " /> <component> <observation moodCode="EVN& quot; classCode="OBS"> <templateId root=" 2.16.840.1.985865.10.20.22.4.2" /> <id nullFlavor="NA& quot; /> <code codeSystem="local" code="300.3700& quot; displayName="B-Type Natriuretic Peptide" /> < statusCode code="completed" /> <effectiveTime value=& quot;774244415231" /> <value unit="pg/mL" xsi:type ="PQ" value="908" /> <interpretationCode codeSystem="local" code="*" /> < referenceRange> <observationRange> <text>0-175& lt;/text> </observationRange> </referenceRange& gt; </observation> </component> </organizer> & lt;/entry> <entry> <organizer moodCode="EVN" classCode ="BATTERY"> <templateId root=" 2.16.840.1.359766.10.20.22.4.1" /> <id nullFlavor="NA" /&gt ; <code codeSystem="local" code="LCBC" displayName=& quot;L100.0050" /> <statusCode code="completed" /> <component> <observation moodCode="EVN" classCode=& quot;OBS"> <templateId root="2.16.840.1.159358.10.20.22.4.2& quot; /> <id nullFlavor="NA" /> <code codeSystem="local" code="100.0150" displayName="WBC - WHITE BLOOD COUNT" /> <statusCode code="completed&quot ; /> <effectiveTime value="292282660163" /> <value unit="T/MM3" xsi:type="PQ" value="11.0&quot ; /> <referenceRange> <observationRange> <text>4.5-11.0</text> </observationRange> </referenceRange> </observation> </component>< component> <observation moodCode="EVN" classCode=" OBS"> <templateId root="2.16.840.1.854435.10.20.22.4.2" /> <id nullFlavor="NA" /> <code codeSystem="local" code="100.0250" displayName="RED BLOOD COUNT" /> <statusCode code="completed" /&gt ; <effectiveTime value="198718170543" /> <value unit="M/MM3" xsi:type="PQ" value="4.31" /> <referenceRange> <observationRange> & lt;text>4.00-5.20</text> </observationRange> </referenceRange> </observation> </component> <component> <observation moodCode="EVN" classCode=& quot;OBS"> <templateId root=" 2.16.840.1.627061.10.20.22.4.2" /> <id nullFlavor="NA& quot; /> <code codeSystem="local" code="100.0300& quot; displayName="HGB - HEMOGLOBIN" /> <statusCode code="completed" /> <effectiveTime value=" 118908106417" /> <value unit="GM/DL" xsi:type=& quot;PQ" value="13.2" /> <referenceRange> <observationRange> <text>12-16</text> </observationRange> </referenceRange> </ observation> </component> <component> < observation moodCode="EVN" classCode="OBS"> < templateIdroot="2.16.840.1.068279.10.20.22.4.2" /> <id nullFlavor="NA" /> <code codeSystem="local" code="100.0400" displayName="HCT - HEMATOCRIT" /> <statusCode code="completed" /> <effectiveTime value="087932013993" /> <value unit="%& quot; xsi:type="PQ" value="40.9" /> < referenceRange> <observationRange> <text> 36-46</text> </observationRange> </ referenceRange> </observation> </component> < component> <observation moodCode="EVN" classCode=" OBS"> <templateId root="2.16.840.1.336940.10..22.4.2& quot; /> <id nullFlavor="NA" /> <code codeSystem="local" code="100.0550" displayName="MEAN CORPUSCULAR VOLUME" /> <statusCode code="completed&quot ; /> <effectiveTime value="880062671490" /> <value unit="UM3" xsi:type="PQ" value="94.9" /> <referenceRange> <observationRange> <text>80-100</text> </observationRange> </referenceRange> </observation> </component&gt ; <component> <observation moodCode="EVN" classCode="OBS"> <templateId root=" 2.16.840.1.694000.10.20.22.4.2" /> <id nullFlavor="NA& quot; /> <code codeSystem="local" code="100.0600& quot; displayName="MEAN CORPUSCULAR HGB" /> < statusCode code="completed" /> <effectiveTime value=& quot;714753364723" /> <value unit="UUG" xsi:type=& quot;PQ" value="30.6" /> <referenceRange> <observationRange> <text>26-34</text> &lt ;/observationRange> </referenceRange> </observation& gt; </component> <component> <observation moodCode="EVN" classCode="OBS"> <templateId root="2.16.840.1.804746.10.20.22.4.2" /> <id nullFlavor ="NA" /> <code codeSystem="local" code=" 100.0650" displayName="MEAN CORPUSCULAR HGB CONC(MCHC" /> <statusCode code="completed" /> < effectiveTime value="321937091713" /> <value unit=&quot ;GM/DL" xsi:type="PQ" value="32.3" /> < referenceRange> <observationRange> <text>31-37& lt;/text> </observationRange> </referenceRange& gt; </observation> </component> <component> <observation moodCode="EVN" classCode="OBS"> <templateId root="2.16.840.1.264182.10.20.22.4.2" /> <id nullFlavor="NA" /> <code codeSystem=&quot ;local" code="100.0750" displayName="RDW STANDARD DEVIATION& quot; /> <statusCode code="completed" /> & lt;effectiveTime value="232953759900" /> <value unit=& quot;FL" xsi:type="PQ" value="55.5" /> < interpretationCode codeSystem="local" code="*" /> <referenceRange> <observationRange> < text>36.9-50.2</text> </observationRange> &lt ;/referenceRange> </observation> </component> & lt;component> <observation moodCode="EVN" classCode=&quot ;OBS"> <templateId root="2.16.840.1.847639.10.20.22.4.2 " /> <id nullFlavor="NA" /> <code codeSystem="local" code="100.0850" displayName="PLT - PLATELET COUNT" /> <statusCode code="completed" /& gt; <effectiveTime value="165664652126" /> &lt ;value unit="T/MM3" xsi:type="PQ" value="184" /&gt ; <referenceRange> <observationRange> <text>130-400</text> </observationRange> </referenceRange> </observation> </component> <component> <observation moodCode="EVN" classCode ="OBS"> <templateId root=" 2.16.840.1.114667.10.20.22.4.2" /> <id nullFlavor="NA& quot; /> <code codeSystem="local" code="100.0950& quot; displayName="MEAN PLATELET VOLUME" /> < statusCode code="completed" /> <effectiveTime value=& quot;533839590037" /> <value unit="UM3" xsi:type=& quot;PQ" value="9.6" /> <referenceRange> < observationRange> <text>9.4-12.4</text> & lt;/observationRange> </referenceRange> </ observation> </component> <component> < observation moodCode="EVN" classCode="OBS"> < templateId root="2.16.840.1.413901.10.20.22.4.2" /> < id nullFlavor="NA" /> <code codeSystem="local&quot ; code="100.1050" displayName="NEUTROPHILS % (AUTO)&quot ; /> <statusCode code="completed" /> < effectiveTime value="257994408798" /> <value unit=&quot ;%" xsi:type="PQ" value="82.8" /> & lt;interpretationCode codeSystem="local" code="*" /> <referenceRange> <observationRange> & lt;text>33-66</text> </observationRange> </ referenceRange> </observation> </component> < component> <observation moodCode="EVN" classCode=" OBS"> <templateId root="2.16.840.1.262353.10.20.22.4.2& quot; /> <id nullFlavor="NA" /> <code codeSystem="local" code="100.1100" displayName=" LYMPHOCYTES % (AUTO)" /> <statusCode code=" completed" /> <effectiveTime value="450125422055" /> <value unit="%" xsi:type="PQ" value=" 8.8" /> <interpretationCode codeSystem="local" code="*" /> <referenceRange> < observationRange> <text>23-45</text> < /observationRange> </referenceRange> </observation& gt; </component> <component> <observation moodCode="EVN" classCode="OBS"> <templateId root="2.16.840.1.977244.10.20.22.4.2" /> <id nullFlavor ="NA" /> <code codeSystem="local" code=" 100.1150" displayName="MONOCYTES % (AUTO)" /> <statusCode code="completed" /> <effectiveTime value="013158125584" /> <value unit="%& quot; xsi:type="PQ" value="7.4" /> < referenceRange> <observationRange> <text> 0-9.0</text> </observationRange> </ referenceRange> </observation> </component> < component> <observation moodCode="EVN" classCode=" OBS"> <templateId root="2.16.840.1.037954.10.20.22.4.2& quot; /> <id nullFlavor="NA" /> <code codeSystem="local" code="100.1200" displayName=" EOSINOPHILS % (AUTO)" /> <statusCode code=" completed" /> <effectiveTime value="565022366185" /> <value unit="%" xsi:type="PQ" value="0.5" /> <referenceRange> < observationRange> <text>0-4</text></ observationRange> </referenceRange> </observation&gt ; </component> <component> <observation moodCode ="EVN" classCode="OBS"> <templateId root=& quot;2.16.840.1.191402.10.20.22.4.2" /> <id nullFlavor=&quot ;NA" /> <code codeSystem="local" code=" 100.1250" displayName="BASOPHILS % (AUTO)" /> <statusCode code="completed" /> <effectiveTime value="311523325584" /> <value unit="%& quot; xsi:type="PQ" value="0.2" /> < referenceRange> <observationRange> <text> 0-2</text></observationRange> </referenceRange> </observation> </component> <component> & lt;observation moodCode="EVN" classCode="OBS"> & lt;templateId root="2.16.840.1.711175.10.20.22.4.2" /> &lt ;id nullFlavor="NA" /> <code codeSystem="local& quot; code="100.1275" displayName="IMMATURE GRANULOCYTE &#37 ; (AUTO)" /> <statusCode code="completed" /> <effectiveTime value="358035213110" /> <value unit= "%" xsi:type="PQ" value="0.3" />< referenceRange> <observationRange> <text> 0.0-0.5</text> </observationRange> </ referenceRange> </observation> </component> < component> <observation moodCode="EVN" classCode=" OBS"> <templateId root="2.16.840.1.054075.10.20.22.4.2& quot; /> <id nullFlavor="NA" /> <code codeSystem="local" code="100.1300" displayName=" NEUTROPHILS # (AUTO)" /> <statusCode code="completed& quot; /> <effectiveTime value="274947804113" /> < value unit="T/MM3" xsi:type="PQ" value="9.1" /&gt ; <interpretationCode codeSystem="local" code="*&quot ; /> <referenceRange> <observationRange> <text>1.8-7.7</text> </observationRange> </referenceRange> </observation> </ component> <component> <observation moodCode="EVN& quot; classCode="OBS"> <templateId root=" 2.16.840.1.553506.10.20.22.4.2" /> <id nullFlavor="NA& quot; /> <code codeSystem="local" code="100.1350& quot; displayName="LYMPHOCYTES # (AUTO)" /> < statusCode code="completed" /> <effectiveTime value=& quot;925029944080" /> <value unit="T/MM3" xsi:type ="PQ" value="1.0" /> <referenceRange> <observationRange> <text>1-4.8</text> </observationRange> </referenceRange> </ observation> </component> <component> < observation moodCode="EVN" classCode="OBS"> < templateId root="2.16.840.1.377551.10.20.22.4.2" /> < id nullFlavor="NA" /> <code codeSystem="local&quot ; code="100.1400" displayName="MONOCYTES # (AUTO)" /> <statusCode code="completed" /> <effectiveTime value="797869348164" /> <value unit="T/MM3" xsi:type="PQ" value="0.8" /> <referenceRange& gt; <observationRange> <text>0-0.8</text& gt; </observationRange> </referenceRange> </observation> </component> <component> &lt ;observation moodCode="EVN" classCode="OBS"> &lt ;templateId root="2.16.840.1.597652.10.20.22.4.2" /> < id nullFlavor="NA" /> <code codeSystem="local&quot ; code="100.1450" displayName="EOSINOPHILS # (AUTO)" /> <statusCode code="completed" /> < effectiveTime value="118292211094" /> <value unit=&quot ;T/MM3" xsi:type="PQ" value="0.1" /> < referenceRange> <observationRange> <text> 0-0.5</text> </observationRange> </referenceRange&gt ; </observation> </component> <component> <observation moodCode="EVN" classCode="OBS"> <templateId root="2.16.840.1.014786.10.20.22.4.2" /> <id nullFlavor="NA" /> <code codeSystem=" local" code="100.1500" displayName="BASOPHILS # (AUTO)&quot ; /> <statusCode code="completed" /> < effectiveTime value="541519192165" /> <value unit=&quot ;T/MM3" xsi:type="PQ" value="0.0" /> < referenceRange> <observationRange> <text> 0-0.2</text> </observationRange> </ referenceRange> </observation> </component> < component> <observation moodCode="EVN" classCode=" OBS"> <templateId root="2.16.840.1.382026.10.20.22.4.2& quot; /> <id nullFlavor="NA" /> <code codeSystem ="local" code="100.1525" displayName="IMMATURE GRANULOCYTE # (AUTO)" /> <statusCode code="completed& quot; /> <effectiveTime value="795882501898" /> <value unit="T/MM3" xsi:type="PQ" value="0.03& quot; /> <referenceRange> <observationRange> <text>0.00-0.03</text> </ observationRange> </referenceRange> </observation&gt ; </component> </organizer> </entry> <entry> <organizer moodCode="EVN" classCode="BATTERY"> <templateId root="2.16.840.1.927504.10.20.22.4.1" /> < id nullFlavor="NA" /> <code codeSystem="local" code="LCMP" displayName="L200.0020" /> < statusCode code="completed" /> <component> < observation moodCode="EVN" classCode="OBS"> < templateId root="2.16.840.1.340385.10.20.22.4.2" /> < id nullFlavor="NA" /> <code codeSystem="local&quot ; code="300.0400" displayName="FUNGAL CULTURE." /> <statusCode code="completed" /> <effectiveTime value="127730600230" /> <value unit="mg/dL" xsi:type="PQ" value="1.1" /> <referenceRange& gt; <observationRange> <text>0.7-1.2</text& gt; </observationRange> </referenceRange> </observation> </component> <component> &lt ;observation moodCode="EVN" classCode="OBS"> &lt ;templateId root="2.16.840.1.551313.10.20.22.4.2" /> < id nullFlavor="NA" /> <code codeSystem="local&quot ; code="300.0450" displayName="FUNGAL CULTURE, BLOOD." /&gt ; <statusCode code="completed" /> < effectiveTime value="244789229222" /> <value unit=&quot ;RATIO" xsi:type="PQ" value="28" /> < interpretationCode codeSystem="local" code="*" /> <referenceRange> <observationRange> < text>6-26</text> </observationRange> </ referenceRange> </observation> </component> < component> <observation moodCode="EVN" classCode=" OBS"> <templateId root="2.16.840.1.975945.10.20.22.4.2& quot; /> <id nullFlavor="NA" /> <code codeSystem="local" code="300.0100" displayName="NA - Sodium" /> <statusCode code="completed" /> <effectiveTime value="599201041056" /> <value unit="MEQ/L" xsi:type="PQ" value="142" /> < referenceRange> <observationRange> <text> 134-144</text> </observationRange> </ referenceRange> </observation> </component> < component> <observation moodCode="EVN" classCode=" OBS"> <templateId root="2.16.840.1.029043.10.20.22.4.2& quot; /> <id nullFlavor="NA" /> <code codeSystem="local" code="300.0150" displayName=" Potassium" /> <statusCode code="completed" /> <effectiveTime value="[id number]" /> < value unit="MEQ/L" xsi:type="PQ" value="4.4" /&gt ; <referenceRange> <observationRange> <text>3.6-5</text> </observationRange> </referenceRange> </observation> </component> <component> <observation moodCode="EVN" classCode= "OBS"> <templateId root=" [id number]" /> <id nullFlavor="NA& quot; /> <code codeSystem="local" code="300.0200& quot; displayName="Chloride" /> <statusCode code=" completed" /> <effectiveTime value="[id number]" / > <value unit="MEQ/L" xsi:type="PQ" value=& quot;100" /> <referenceRange> < observationRange> <text>98-107</text> &lt ;/observationRange> </referenceRange> </observation& gt; </component> <component> <observation moodCode="EVN" classCode="OBS"> <templateId root="2.16.840.1.498563.10.20.22.4.2" /> <id nullFlavor ="NA" /> <code codeSystem="local" code=" 300.0250" displayName="CO2 - Carbon Dioxide" /> < statusCode code="completed" /> <effectiveTime value=" 776558400792" /> <value unit="MEQ/L" xsi:type=& quot;PQ" value="28" /> <referenceRange> <observationRange> <text>22-30</text> </observationRange> </referenceRange> </ observation> </component> <component> < observation moodCode="EVN" classCode="OBS"> < templateId root="2.16.840.1.419416.10.20.22.4.2" /> < id nullFlavor="NA" /> <code codeSystem="local&quot ; code="300.0300" displayName="Anion Gap" /> &lt ;statusCode code="completed" /> <effectiveTimevalue=& quot;834761598610" /> <value unit="meq/L" xsi:type ="PQ" value="14" /> <referenceRange> <observationRange> <text>5-15</text> </observationRange> </referenceRange> </ observation> </component> <component> < observation moodCode="EVN" classCode="OBS"> < templateId root="2.16.840.1.846220.10.20.22.4.2" /> < id nullFlavor="NA" /> <code codeSystem="local&quot ; code="300.0350" displayName="BUN - Blood Urea Nitrogen" /& gt; <statusCode code="completed" /> < effectiveTime value="" /> <value unit=&quot ;MG/DL" xsi:type="PQ" value="31.0" /> < interpretationCode codeSystem="local" code="*" /> <referenceRange> <observationRange> < text>7-17</text> </observationRange> </ referenceRange> </observation> </component> < component> <observation moodCode="EVN" classCode=" OBS"> <templateId root="2.16.840.1.459729.10.20.22.4.2& quot; /> <id nullFlavor="NA" /> <code codeSystem="local" code="300.0410" displayName=" Glomerular Filtration Rate" /> <statusCode code="completed& quot; /> <effectiveTime value="333598722710" /> <value unit="" xsi:type="PQ" value="49" / > <referenceRange> <observationRange> <text>NRG</text> </observationRange> </referenceRange> </observation> </component> <component> <observation moodCode="EVN" classCode ="OBS"> <templateId root=" 2.16.840.1.278929.10.20.22.4.2" /> <id nullFlavor="NA& quot; /> <code codeSystem="local" code="300.0500& quot; displayName="Glucose" /> <statusCode code=" completed" /> <effectiveTime value="073595991719" /> <value unit="MG/DL" xsi:type="PQ" value=& quot;191" /> <interpretationCode codeSystem="local&quot ; code="*" /> <referenceRange> < observationRange> <text>65-110</text> &lt ;/observationRange> </referenceRange> </observation& gt; </component> <component> <observation moodCode=& quot;EVN" classCode="OBS"> <templateId root=" 2.16.840.1.159825.10.20.22.4.2" /> <id nullFlavor="NA& quot; /> <code codeSystem="local" code="300.2000& quot; displayName="Osmolality,Calculated" /> < statusCode code="completed" /> <effectiveTime value=& quot;095585644909" /> <value unit="MOSM/KG" xsi: type="PQ" value="285" /> <interpretationCode codeSystem="local" code="*" /> < referenceRange> <observationRange> <text> 261-280</text> </observationRange> </referenceRange > </observation> </component> <component> <observation moodCode="EVN" classCode="OBS"> <templateId root="2.16.840.1.350624.10.20.22.4.2" /> <id nullFlavor="NA" /> <code codeSystem=& quot;local" code="300.2200" displayName="Calcium" /&gt ; <statusCode code="completed" /> < effectiveTime value="" /> <value unit=&quot ;MG/DL" xsi:type="PQ" value="9.1" /> < referenceRange> <observationRange> <text>8.4- 10.2</text> </observationRange> </ referenceRange> </observation> </component> < component> <observation moodCode="EVN" classCode=" OBS"> <templateId root="2.16.840.1.328833.10.20.22.4.2& quot; /> <id nullFlavor="NA" /> <code codeSystem="local" code="300.2700" displayName=" Bilirubin,Total" /> <statusCode code="completed" / > <effectiveTime value="562278488614" /> & lt;value unit="MG/DL" xsi:type="PQ" value="0.80" / > <referenceRange> <observationRange> <text>0.20-1.30</text> </observationRange> </referenceRange> </observation> </component > <component> <observation moodCode="EVN" classCode="OBS"> <templateId root=" 2.16.840.1.304925.10.20.22.4.2" /> <id nullFlavor="NA& quot; /> <code codeSystem="local" code="300.2975& quot; displayName="Alkaline Phosphatase" /> < statusCode code="completed" /> <effectiveTime value=& quot;306490414937" /> <value unit="U/L" xsi:type=& quot;PQ" value="61" /> <referenceRange> <observationRange> <text>38-126</text> </observationRange> </referenceRange> </ observation> </component> <component> < observation moodCode="EVN" classCode="OBS"> < templateId root="2.16.840.1.882053.10.20.22.4.2" /> < id nullFlavor="NA" /> <code codeSystem="local&quot ; code="300.3050" displayName="AST - Aspartate Amino Transfer& quot; /> <statusCode code="completed" /> & lt;effectiveTime value="323327526340" /> <value unit=& quot;U/L" xsi:type="PQ" value="26" /> < referenceRange> <observationRange> <text> 14-36</text> </observationRange> </ referenceRange> </observation> </component> < component> <observation moodCode="EVN" classCode=" OBS"> <templateId root="2.16.840.1.565003.10.20.22.4.2& quot; /> <id nullFlavor="NA" /> <code codeSystem="local" code="300.3110" displayName="TP - Total Protein" /> <statusCode code="completed" /& gt; <effectiveTime value="167589491135" /> &lt ;value unit="g/dL" xsi:type="PQ" value="7.9" /&gt ; <referenceRange> <observationRange> <text>6.3-8.2</text> </observationRange> </referenceRange> </observation> </component> <component> <observation moodCode="EVN" classCode ="OBS"> <templateId root=" 2.16.840.1.493437.10.20.22.4.2" /> <id nullFlavor="NA& quot; /> <code codeSystem="local" code="300.3120& quot; displayName="Albumin Level" /> <statusCode code=& quot;completed" /> <effectiveTime value="328240098246& quot; /> <value unit="g/dL" xsi:type="PQ" value=& quot;4.3" /> <referenceRange> < observationRange> <text>3.5-5.0</text> < /observationRange> </referenceRange> </observation& gt; </component> <component> <observation moodCode=& quot;EVN" classCode="OBS"> <templateId root=" 2.16.840.1.626772.10.20.22.4.2" /> <id nullFlavor="NA&quot ; /> <code codeSystem="local" code="300.3130&quot ; displayName="Globulin" /> <statusCode code=" completed" /> <effectiveTime value="574984388904" /> <value unit="G/DL" xsi:type="PQ" value=& quot;3.6" /> <referenceRange> < observationRange> <text>2.4-3.6</text> & lt;/observationRange> </referenceRange> </ observation> </component> <component> < observation moodCode="EVN" classCode="OBS"> < templateId root="2.16.840.1.613765.10.20.22.4.2" /> < id nullFlavor="NA" /> <code codeSystem="local&quot ; code="300.3140" displayName="Albumin/Globulin Ratio" /&gt ; <statusCode code="completed" /> < effectiveTime value="664794582705" /> <value unit=&quot ;RATIO" xsi:type="PQ" value="1.2" /> < referenceRange> <observationRange> <text>1.1- 2.2</text> </observationRange> </ referenceRange> </observation> </component> < component> <observation moodCode="EVN" classCode=" OBS"> <templateId root="2.16.840.1.969155.10.20.22.4.2&quot ; /> <id nullFlavor="NA" /> <code codeSystem="local" code="300.0095" displayName=" LICTERUS" /> <statusCode code="completed" /> <effectiveTime value="914037230572" /> < value unit="" xsi:type="PQ" value="< 2" /& gt; <referenceRange> <observationRange> <text>0-7</text> </observationRange> </ referenceRange> </observation> </component> < component> <observation moodCode="EVN" classCode="OBS "> <templateId root="2.16.840.1.819376.10.20.22.4.2& quot; /> <id nullFlavor="NA" /> <code codeSystem="local" code="300.0096" displayName=" LHEMOLYSIS" /> <statusCode code="completed" /> <effectiveTime value="688183479032" /> < value unit="" xsi:type="PQ" value="< 15" /& gt; <referenceRange> <observationRange> <text>0-25</text> </observationRange> & lt;/referenceRange> </observation> </component> <component> <observation moodCode="EVN" classCode=& quot;OBS"> <templateId root=" 2.16.840.1.557087.10.20.22.4.2" /> <id nullFlavor="NA& quot; /> <code codeSystem="local" code="300.0097& quot; displayName="LTURBIDITY" /> <statusCode code=" completed" /> <effectiveTime value="041306097904" /> <value unit="" xsi:type="PQ" value="& amp;lt;20" /> <referenceRange> < observationRange> <text>0-20</text> </ observationRange> </referenceRange> </observation> </component> <component> <observation moodCode=" EVN" classCode="OBS"> <templateId root=" 2.16.840.1.645584.10.20.22.4.2" /> <id nullFlavor="NA& quot; /> <code codeSystem="local" code="300.3105& quot; displayName="LALTV" /> <statusCode code=" completed" /> <effectiveTime value="747126077733" /> <value unit="U/L" xsi:type="PQ" value=" 31" /> <referenceRange> <observationRange& gt; <text>1-35</text> </observationRange&gt ; </referenceRange> </observation></component&gt ; </organizer> </entry> <entry> <organizer moodCode ="EVN" classCode="BATTERY"> <templateId root=& quot;2.16.840.1.067600.10.20.22.4.1" /> <id nullFlavor="NA& quot; /> <code codeSystem="local" code="MCUBLD" displayName="M110.0180" /> <statusCode code="completed " /> <component> <observation moodCode="EVN& quot; classCode="OBS"> <templateId root=" 2.16.840.1.826945.10.20.22.4.2" /> <id nullFlavor="NA& quot; /> <code codeSystem="local" code="110.0200& quot; displayName="ANTI-D" /> <statusCode code=" completed" /> <effectiveTime value="092668185939" /> <value unit="" xsi:type="PQ" value=" Culture Initiated - Results Pending" /> <referenceRange> <observationRange> <text>NRG</text> </observationRange> </referenceRange> </ observation> </component> </organizer> </entry> & lt;entry> <organizer moodCode="EVN" classCode="BATTERY& quot;> <templateId root="2.16.840.1.811731.10.20.22.4.1" /& gt; <id nullFlavor="NA" /> <code codeSystem=" local" code="LLACTATE" displayName="L200.2067" /> <statusCode code="completed" /> <component> <observation moodCode="EVN"classCode="OBS"> <templateId root="2.16.840.1.346555.10.20.22.4.2" /> <id nullFlavor="NA" /> <code codeSystem=" local" code="300.3230" displayName="Lactate" /> <statusCode code="completed" /> < effectiveTime value="570757168746" /> <value unit=&quot ;MMOL/L" xsi:type="PQ" value="2.2" /> < referenceRange> <observationRange> <text> 0.6-2.2</text> </observationRange> </referenceRange&gt ; </observation> </component> </organizer> &lt ;/entry> <entry> <organizer moodCode="EVN" classCode=& quot;BATTERY"> <templateId root=" 2.16.840.1.324512.10.20.22.4.1" /> <id nullFlavor="NA&quot ; /> <code codeSystem="local" code="LUAMIC" displayName="L200.0050" /> <statusCode code="completed " /> <component> <observation moodCode="EVN& quot; classCode="OBS"> <templateId root=" 2.16.840.1.851626.10.20.22.4.2" /> <id nullFlavor="NA" /&gt ; <code codeSystem="local" code="200.0150" displayName="POTASSIUM" /> <statusCode code=" completed" /> <effectiveTime value="575316851537" /> <value unit="" xsi:type="PQ" value=" Urine, Void-CC/notCC" /> <referenceRange> < observationRange> <text>NRG</text> </ observationRange> </referenceRange> </observation&gt ; </component> <component> <observation moodCode ="EVN" classCode="OBS"> <templateId root=& quot;2.16.840.1.927309.10.20.22.4.2" /> <id nullFlavor=&quot ;NA" /> <code codeSystem="local" code=" 200.0200" displayName="CHLORIDE" /> <statusCode code="completed" /> <effectiveTime value=" 966653938787" /> <value unit="" xsi:type="PQ& quot; value="YELLOW" /> <referenceRange> <observationRange> <text>YELLOW</text> </observationRange> </referenceRange> </ observation> </component> <component> < observation moodCode="EVN" classCode="OBS"> < templateId root="2.16.840.1.415313.10.20.22.4.2" /> < id nullFlavor="NA" /> <code codeSystem="local&quot ; code="200.0300" displayName="ANION GAP" /> &lt ;statusCode code="completed" /> <effectiveTime value=& quot;587177685190" /> <value unit="" xsi:type=& quot;PQ" value="CLOUDY" /> <referenceRange> <observationRange> <text>NRG</text> </observationRange> </referenceRange> </ observation> </component> <component> < observation moodCode="EVN" classCode="OBS"> < templateId root="2.16.840.1.224051.10.20.22.4.2" /> < id nullFlavor="NA" /> <code codeSystem="local&quot ; code="200.0350" displayName="BLOOD UREA NITROGEN" /> <statusCode code="completed" /> < effectiveTime value="370394945734" /> <value unit=&quot ;" xsi:type="PQ" value="5.5" /> < referenceRange> <observationRange> <text> 5.0-8.0</text> </observationRange> </ referenceRange> </observation> </component> < component> <observation moodCode="EVN" classCode=" OBS"> <templateId root="2.16.840.1.627277.10..22.4.2& quot; /> <id nullFlavor="NA" /> <code codeSystem="local" code="200.0450" displayName="BUN/ CREATININE RATIO" /> <statusCode code="completed" /& gt; <effectiveTime value="171930529522" /> &lt ;value unit="" xsi:type="PQ" value="1+" /> <referenceRange> <observationRange> & lt;text>NEGATIVE</text> </observationRange> & lt;/referenceRange> </observation> </component> <component> <observation moodCode="EVN" classCode=& quot;OBS"> <templateId root=" 2.16.840.1.837761.10.20.22.4.2" /> <id nullFlavor="NA& quot; /> <code codeSystem="local" code="200.0500& quot; displayName="GLUCOSE" /> <statusCode code=" completed" /> <effectiveTime value="485955049780" /> <value unit="" xsi:type="PQ" value="NEGATIVE " /> <referenceRange> <observationRange&gt ; <text>NEGATIVE</text> </ observationRange> </referenceRange> </observation&gt ; </component> <component> <observation moodCode=& quot;EVN" classCode="OBS"> <templateId root=" 2.16.840.1.933287.10.20.22.4.2" /> <id nullFlavor="NA& quot; /> <code codeSystem="local" code="200.0600& quot; displayName="CALCIUM" /> <statusCode code=" completed" /> <effectiveTime value="484007672957" /> <value unit="" xsi:type="PQ" value=" NEGATIVE" /> <referenceRange> < observationRange> <text>NEGATIVE</text> & lt;/observationRange> </referenceRange> </ observation> </component> <component> < observation moodCode="EVN" classCode="OBS"> < templateId root="2.16.840.1.968624.10..22.4.2" /> < id nullFlavor="NA" /> <code codeSystem="local&quot ; code="200.0750" displayName="BILIRUBIN, CONJUG &amp; UNCONJUG" /> <statusCode code="completed" /> <effectiveTime value="515680829865" /><value unit=& quot;" xsi:type="PQ" value="NEGATIVE" /> & lt;referenceRange> <observationRange> <text& gt;NEGATIVE</text> </observationRange> </ referenceRange> </observation></component> < component> <observation moodCode="EVN" classCode=" OBS"> <templateId root="2.16.840.1.375654.10..22.4.2& quot; /> <id nullFlavor="NA" /> <code codeSystem="local" code="200.1000" displayName="TOTAL PROTEIN" /> <statusCode code="completed" /> <effectiveTime value="401074860339" /> < value unit="/HPF" xsi:type="PQ" value="20-30" /&gt ; <interpretationCode codeSystem="local" code="*&quot ; /> <referenceRange> <observationRange> & lt;text>0-3</text> </observationRange> </ referenceRange> </observation> </component> < component> <observation moodCode="EVN" classCode=" OBS"> <templateId root="2.16.840.1.214393.10.20.22.4.2& quot; /> <id nullFlavor="NA" /> <code codeSystem="local" code="200.1050" displayName="ALBUMIN " /> <statusCode code="completed" /> & lt;effectiveTime value="950266733249" /> <value unit=& quot;/HPF" xsi:type="PQ" value="50-200" /> <interpretationCode codeSystem="local" code="*" /> <referenceRange> <observationRange> <text> 0-5</text> </observationRange> </ referenceRange> </observation> </component> < component> <observation moodCode="EVN" classCode=" OBS"> <templateId root="2.16.840.1.911997.10..22.4.2& quot; /> <id nullFlavor="NA" /> <code codeSystem="local" code="200.1150" displayName="ALBUMIN /GLOBULIN RATIO" /> <statusCode code="completed" / > <effectiveTime value="412486717418" /> & lt;value unit="" xsi:type="PQ" value="10-20" /&gt ; <referenceRange> <observationRange> <text>NRG</text> </observationRange> & lt;/referenceRange> </observation> </component> <component> <observation moodCode="EVN" classCode=& quot;OBS"> <templateId root=" 2.16.840.1.671261.10..22.4.2" /> <id nullFlavor="NA& quot; /> <code codeSystem="local" code="200.1750& quot; displayName="CKMB" /> <statusCode code=" completed" /> <effectiveTime value="294779498385" /> <value unit="" xsi:type="PQ" value="4+" /> <interpretationCode codeSystem="local" code="*& quot; /> <referenceRange> <observationRange> <text>NEGATIVE</text> </observationRange&gt ; </referenceRange> </observation> </ component> <component> <observation moodCode="EVN& quot; classCode="OBS"> <templateId root=" 2.16.840.1.410302.10.20.22.4.2" /> <id nullFlavor="NA& quot; /> <code codeSystem="local" code="200.2600& quot; displayName="GENTAMICIN,RANDOM" /> <statusCode code="completed" /> <effectiveTime value=" 971697033811" /> <value unit="" xsi:type="PQ& quot; value="Cult reflexed &setup" /> < referenceRange> <observationRange> <text> NRG</text> </observationRange> </ referenceRange> </observation> </component> < component> <observation moodCode="EVN" classCode=" OBS"> <templateId root="2.16.840.1.205182.10..22.4.2& quot; /> <idnullFlavor="NA" /> <code codeSystem="local" code="200.0325" displayName=" Specific [place],Urine" /> <statusCode code="completed& quot; /> <effectiveTime value="398564009527" /> <value unit="" xsi:type="PQ" value="1.025&quot ; /> <referenceRange> <observationRange> <text>1.015-1.025</text> </observationRange&gt ; </referenceRange> </observation> </ component> <component> <observation moodCode="EVN& quot; classCode="OBS"> <templateId root=" 2.16.840.1.988209.10.20.22.4.2" /> <id nullFlavor="NA& quot; /> <code codeSystem="local" code="200.0410& quot; displayName="Leukocyte Esterase,Urine" /> < statusCode code="completed" /> <effectiveTime value=& quot;539676915775" /> <value unit="" xsi:type=& quot;PQ" value="3+" /> <referenceRange> &lt ;observationRange> <text>NEGATIVE</text> </observationRange> </referenceRange> </ observation> </component> <component> < observation moodCode="EVN" classCode="OBS"> < templateId root="2.16.840.1.710112.10.20.22.4.2" /> < id nullFlavor="NA" /> <code codeSystem="local&quot ; code="200.0420" displayName="Nitrate,Urine" /> <statusCode code="completed" /> <effectiveTime value=& quot;076011771801" /> <value unit="" xsi:type=& quot;PQ" value="POSITIVE" /> <referenceRange> <observationRange> <text>NEGATIVE</text& gt; </observationRange> </referenceRange> </observation> </component> <component> &lt ;observation moodCode="EVN" classCode="OBS"> &lt ;templateId root="2.16.840.1.324040.10.20.22.4.2" /> < id nullFlavor="NA" /> <code codeSystem="local&quot ; code="200.0740" displayName="Urobilinogen,Urine" /> <statusCode code="completed" /> < effectiveTime value="251904704962" /> <value unit=&quot ;EU/DL" xsi:type="PQ" value="0.2" /> < referenceRange> <observationRange> <text> NORMAL</text> </observationRange> </referenceRange&gt ; </observation> </component> <component> <observation moodCode="EVN" classCode="OBS"> <templateIdroot="2.16.840.1.892904.10.20.22.4.2" /> <id nullFlavor="NA" /> <code codeSystem=" local" code="200.0825" displayName="Occult Blood,Urine - Dipstick" /> <statusCode code="completed" /> <effectiveTime value="251094532610" /> < value unit="" xsi:type="PQ" value="3+" /> <referenceRange> <observationRange> &lt ;text>NEGATIVE</text> </observationRange> &lt ;/referenceRange> </observation> </component> < /organizer> </entry> <entry> <organizer moodCode=" EVN" classCode="BATTERY"> <templateId root=" 2.16.840.1.563485.10.20.22.4.1" /> <id nullFlavor="NA&quot ; /> <code codeSystem="local" code="MCUU" displayName="M120.0100" /> <statusCode code="completed " /> <component> <observation moodCode="EVN&quot ; classCode="OBS"> <templateId root=" 2.16.840.1.148296.10.20.22.4.2" /> <id nullFlavor="NA& quot; /> <code codeSystem="local" code="120.0100& quot; displayName="Urine Culture" /> <statusCode code=& quot;completed" /> <effectiveTime value="856066829046& quot; /> <value unit="" xsi:type="PQ" value=& quot;Culture Initiated - Results Pending" /> <referenceRange > <observationRange> <text>NRG</text& gt; </observationRange> </referenceRange> </observation> </component> </organizer> </entry ></section> Encounters ACCT No. Visit Discharge Status Pt. Type Provider Facility Loc./Unit Complaint Date/Time [id number] 05/15/2015 06/14/2015 DIS Outpat[facility] 21 00:01:00 23:59:00 nt JAN LOUIE [id number] 04/23/2015 05/14/2015 DIS Outpatie [facility] 13 15:31:00 23:59:00 nt JAN LOUIE [id number] 10/04/2016 Document 1459 16:25:00 Registra tion [id number] 10/27/2017 10/27/2017 CLS Outpatie MYRANDABOUT, 15:00:26 23:59:59 nt AARTI [id number] 02/13/2017 Document 20:13:52 Registra tion [id number] 02/24/2016 Document 13:06:48 Registra tion [id number] 02/19/2016 Document 15:12:26 Registra tion [id number] 02/13/2016 Document 15:35:27 Registra tion [id number] 02/01/2016 ACT Outpatie Vee Banks 115 17:40:41 nt [facility] [id number] 01/29/2016 Document 09:28:54 Registra tion [id number] 04/03/2017 04/09/2017 DIS Inpatien Chen CastanonT4 0497 09:34:00 15:30:00 dale LOUIE, [facility] [id number] 03/18/2017 03/19/2017 DIS Outpatie Chen CastanonEPO 9175 11:42:00 16:30:00 robson LOUIE [facility] [id number] 04/03/2017 04/09/2017 DIS Inpatien Chen CastanonT4 0497 09:34:00 15:30:00 t MD, [facility] [id number] 03/18/2017 03/19/2017 DIS Outpatie Negro-Britney Charles E.EPO 9175 11:42:00 16:30:00 nt , [facility] ER [id number] 05/15/2015 06/14/2015 DIS Outpatie [facility] 21 00:01:00 23:59:00 nt JAN LOUIE [id number] 04/23/2015 05/14/2015 DIS Outpatie [facility] 13 15:31:00 23:59:00 nt JAN LOUIE [id number] 10/30/2017 10/30/2017 DIS Outpatie [facility] 0550 12:52:00 16:41:00 nt JAN LOUIE k in O Practice [id number] 10/29/2017 10/29/2017 DIS Outpatie [facility] 2139 08:07:00 10:09:00 JAN chance MD O Practice [id number] 10/13/2017 10/13/2017 DIS Outpatie Marcelle Coppola n20.0 3554 14:34:00 14:35:00 nt , [facility] [id number] 10/05/2017 10/05/2017 DIS Outpatie [facility] 0758 21:47:00 21:48:00 nt JAN LOUIE [id number] 09/22/2017 09/22/2017 DIS Outpatie [facility] # Discuss 4364 15:05:00 16:36:00 nt JAN LOUIE UTI/O2 O Practice testing* per [employer]* [id number] 09/21/2017 09/21/2017 DIS Outpatie [facility] UA brought 0764 10:42:00 11:07:00 JAN chance MD in from O Practice [facility] [id number] 09/15/2017 09/15/2017 DIS Outpatie [facility] 1798 08:38:00 08:42:00 JAN chance MD Drop-Off - O Practice JA [id number] 09/03/2017 09/03/2017 DIS Outpatie [facility] [place] UA brought 6643 13:05:00 13:17:00 nt JAN LOUIE in from [facility] O Practice [id number] 08/25/2017 08/25/2017 DIS Outpatie [facility] [place] #UA from 6499 11:52:00 13:21:00 nt JAN LOUIE Nunez O Practice [id number] 08/18/2017 08/18/2017 DIS Outpatie [facility] [place] UTI 4775 13:20:00 13:21:00 nt JAN LOUIE [facility] O Hardy [id number] 08/12/2017 08/12/2017 DIS Outpatie [facility] [place] UA Drop off 3185 10:40:00 11:01:00 nt JAN LOUIE O Practice [id number] 08/10/2017 08/10/2017 DIS Outpatie [facility] #home 8463 13:34:00 15:22:00 nt JAN LOUIE [facility] O Practice Meeting [id number] 08/03/2017 08/03/2017 CLS Outpatie [facility] PD 0153 09:01:00 23:59:59 nt JAN LOUIE [id number] 07/22/2017 07/22/2017 CLS Outpatie [facility] 0604 08:42:00 23:59:59 nt JAN LOUIE [id number] 07/09/2017 07/09/2017 DIS Outpatie AIYENOWO [facility] #Post [id number] 09:10:00 11:19:00 JAN chance MD Hosp-per O Practice [facility]* [id number] 06/20/2017 06/29/2017 DIS Inpatien AIYENOWO SRG sepsis,uti; [id number] 16:25:00 16:10:00 t JAN LOUIE urosepsis O bacteremia [id number] 05/05/2017 05/05/2017 DIS Outpatie AIYENOWO [facility] #post hosp* [id number] 09:28:00 11:09:00 nt JAN LOUIE / [place] O Practice [facility] [id number] 04/16/2017 04/23/2017 DIS Inpatikaity DURON MD, MED abd [id number] 09:14:00 15:27:00 t LOUISE hemorrhage, L anemia assoc with ABL [id number] 04/09/2017 04/16/2017 DIS Inpatikaity Dixon MD, Abdon hypotension [id number] 16:20:00 09:30:00 dale Lira [facility] , severe Center back/abd pain [id number] 01/02/2017 04/03/2017 DIS Outpatie [facility] 0353 14:19:00 00:00:00 nt JAN LOUIE [id number] 03/11/2017 03/11/2017 DIS Emergenc MEYER Abdon HOLDER Diff 1124 06:03:00 08:08:00 y ELISHA Giancarlo Medical breathing/f Center ell [id number] 03/05/2017 03/05/2017 DIS Outpatie AIYEN[facility]O [facility] # med 4392 08:55:00 10:27:00 nt JAN LOUIE Family check/home O Practice health check & sed rate*lft mssg [id number] 02/17/2017 02/17/2017 DIS Outpatie [facility]EN[facility] #lab JA 1080 09:12:00 09:31:00 JAN chance MD O Practice [id number] 02/14/2017 02/16/2017 DIS Inpatien EMMETT MED afib with 8621 10:40:00 13:05:00 dale LOUIE, rvr MALISSA Hawley [id number] 01/12/2017 01/12/2017 DIS Outpatie [facility]O AMB.[facility] +f/u per 0322 09:18:00 11:02:00 JAN chance MD home health O [id number] 01/01/2017 01/02/2017 DIS Inpatien AMIRANI CCU atrial 4090 09:02:00 18:00:00 oumar hunter MD [id number] 12/19/2016 12/19/2016 DIS Outpatie [facility]B.[facility] sed rate JA 5691 08:50:00 09:07:00 JAN chance MD [id number] 12/05/2016 12/05/2016 DIS Outpatie [facility]O AMB.[facility] sed rate JA 1444 10:48:00 11:05:00 JAN chance MD [id number] 10/09/2016 12/02/2016 DIS Outpatie [facility]O 0149 00:00:00 00:00:00 nt JAN LOUIE [id number] 12/01/2016 12/01/2016 DIS Outpatie [facility]O [facility] Office 2952 13:42:00 14:57:00 nt JAN LOUIE [facility] 6-2 [id number] 11/22/2016 11/22/2016 DIS Emergenc TERRELL LOUIE, ED 1290 14:46:00 18:05:00 y LACY Pranay [id number] 11/14/2016 11/14/2016 DIS Outpatie AIYENOWO [facility] follow up 9256 09:24:00 10:47:00 JAN chance MD [facility] ER visit O Practice [id number] 11/08/2016 11/08/2016 DIS Emergenc Abdon TEJADA MD ED 7219 11:27:00 13:44:00 y [facility] [id number] 10/04/2016 10/05/2016 DIS Outpatie MANAS Coppola WIU 7480 23:39:00 01:00:00 robson LOUIE [facility] [id number] 05/13/2016 05/13/2016 DIS Emergenc MIRANDA Coppola ED 5658 12:57:00 15:30:00 y DO [facility] [id number] 03/26/2016 03/26/2016 DIS Emergenc EDISON Coppola ED 4305 19:58:00 22:05:00 y MD [facility] [id number] 03/25/2016 03/25/2016 CLS OutpatiDeon MOISEN.[facility] 1038 12:13:00 23:59:59 JAN chance MD [facility] [id number] 03/11/2016 03/11/2016 DIS Emergenc AUREA Coppola ED 6725 04:32:00 08:40:00 y KENYATTA [facility] [id number] 02/27/2016 02/27/2016 CLS Sampatipranay Coppola LABN.[facility] 6455 12:45:00 23:59:59 robson LOUIE [facility] [id number] 02/13/2016 02/25/2016 DIS Inpatien MANAS Coppola [facility] 3405 15:35:00 14:55:00 t , [facility] [id number] 02/05/2016 02/05/2016 DIS Isa BANKS MD, Abdon WIU 1773 07:58:00 14:02:00 nt [facility] [id number] 01/29/2016 01/30/2016 DIS Emergenc MAY DO, Abdon ED 0643 23:09:00 04:00:00 y [facility] [id number] 01/27/2016 01/27/2016 DIS Emergenc HOGAN [place] ED 6690 17:32:00 20:05:00 y , [facility] [id number] 01/25/2016 01/25/2016 DIS Isa BANKS MD, Abdon WIU 5338 15:30:00 16:05:00 nt [facility] [id number] 11/14/2017 Document 1054 01:19:00 Registra tion [id number] 11/13/2017 Document 0775 16:23:00 Registra tion [id number] 11/12/2017 Document 8647 16:53:00 Registra tion [id number] 11/12/2017 Document 7701 11:53:00 Registra tion [id number] 10/07/2017 Document 6197 08:41:00 Registra tion [id number] 09/03/2017 Document 5332 08:52:00 Registra tion [id number] 06/03/2017 Document 6951 12:33:00 Registra tion [id number] 04/14/2017 Document 4398 17:32:00 Registra tion [id number] 04/14/2017 Document 6805 17:32:00 Registra tion [id number] 04/16/2016 Document 0119 11:39:00 Registra tion
[2017-11-14] MEDS: SALINE FLUSH 10ml SYRINGE IVF PRN ×2 (03:28→05:52)
--- NOTE | 2017-11-14 03:33 | History & Physical Report ---
History of Present Illness Date: 11/14/17 Chief complaint: fell HPI: 72-year-old female presents to the emergency room for the third time in 2 days . Was seen earlier this evening diagnosed with UTI given a dose of Rocephin and discharged with antibiotics. Apparently at home she was so weak she fell wedge herself and her bed and her nightstand. states she had taken a Percocet, was out of it a bit and when she sat she missed the bed. , EMS had to extricate her from that situation , upon further evaluation in the emergency room her lactate was elevated at 3.3. She also previously complained of constipation, CAT scan performed demonstrated left kidney inflammation. but no sig constipation Yesterday presented to ER with chest pain dx costochondritis. She is complaining of a little pain on right side of chest Denies cough prod sputum, always on 2L O2, she is always in pain anant in back b/ c of PMR sugars have been in 200s today, has not taken any insulin b/c of illness, having dry heaves "today" (Thursday) Past Medical History Medical History: Medical History Cataracts, bilateral Diabetes 1.5, managed as type 2 Dyslipidemia Fibromyalgia Hypertension Hypothyroidism aquired Idiopathic pancreatitis Insomnia Osteoarthritis Psoriasis arthropathica Medical History Updates: A-fib: now s/p ablation and PPM in place. Insulin dependent diabetes mellitus. hypertension. hyperlipidemia. Temporal arteritis : still requiring prednisone. Iron-deficiency anemia. Chronic kidney disease. Recent acute kidney injury. GERD. hypothyroid. anxiety. O2 dependent. Esophagitis. Stable angina. Chronic pain. Vit D deficiency Surgical History: Tubal ligation. Hysterectomy without BSO. Thyroidectomy. Cholecystectomy. Cataract surgery. Pacemaker implantation 2016. Cardioversion 01/01/2017 Family History: Family History Father Blood clots in brain Unknown High blood pressure Cancer of breast Mother Cancer of breast Diabetes Heart attack Stroke Family History: No Significant Family History - Social History Smoking status: Former smoker Current residence: Apartment/Private Home Medications Home Medications Medication Instructions Recorded Confirmed Type Cholecalciferol (Vitamin D3) 1,000 unit PO TID 11/12/17 11/13/17 History [Vitamin D3] DiphenhydrAMINE [Benadryl] 25 mg PO HS 11/12/17 11/13/17 History Furosemide [Lasix 40 mg Tab] 40 mg PO BID 11/12/17 11/13/17 History Insulin Aspart [Novolog Flexpen] 28 unit SQ WB 11/12/17 11/13/17 History Insulin Aspart [Novolog Flexpen] 30 unit SQ BIDLS 11/12/17 11/13/17 History Insulin Detemir [Levemir Flextouch] 45 unit SQ BID 11/12/17 11/13/17 History Levothyroxine Sodium 150 mcg PO ACB 11/12/17 11/13/17 History Lisinopril [Prinivil] 10 mg PO DAILY 11/12/17 11/13/17 History Magnesium Oxide [Magnesium] 400 mg PO DAILY 11/12/17 11/13/17 History Multivit,Calc,Mins/Iron/Folic 1 tab PO DAILY 11/12/17 11/13/17 History [Women's Daily Caplet] Niacin (Inositol Niacinate) 1,500 mg PO HS 11/12/17 11/13/17 History [Niacin Flush-Free 500 mg Cap] Nitrofurantoin Macrocrystal 100 mg PO DAILY 11/12/17 11/13/17 History [Nitrofurantoin] Pantoprazole Tab [Protonix Tab] 40 mg PO ACB 11/12/17 11/13/17 History Potassium Chloride 10 meq PO WB 11/12/17 11/13/17 History PredniSONE [Deltasone 20 mg] 20 mg PO WB 11/12/17 11/13/17 History Sucralfate [Carafate] 1 gm PO QID 11/12/17 11/13/17 History Tizanidine [Zanaflex] 4 mg PO DAILY PRN 11/12/17 11/13/17 History Tizanidine [Zanaflex] 4 mg PO HS 11/12/17 11/13/17 History Tramadol [Ultram] 50 mg PO HS 11/12/17 11/13/17 History Vit C/E/Zn/Coppr/Lutein/Zeaxan 1 cap PO BID 11/12/17 11/13/17 History [Preservision Areds 2 Softgel] dilTIAZem HCl [Cartia Xt] 240 mg PO BID 11/12/17 11/13/17 History CephALEXin [Keflex 500 mg] 1,000 mg PO BID #40 cap 11/13/17 Rx Docusate Sodium [Colace] 200 mg PO DAILY PRN 11/13/17 11/13/17 History Ondansetron Tab [Zofran Po] 4 mg PO Q6HR #30 tab 11/13/17 Rx Oxycodone/Acetaminophen 5/325 0.5 - 1 tab PO Q4H #10 tab 11/13/17 Rx [Percocet 5/325] polyethylene glycol 3350 17 17 g PO .PRN PRN #119 g 11/13/17 11/13/17 Rx gram/dose oral powder Allergies Allergy/AdvReac Type Severity Reaction Status Date / Time Latex, Natural Rubber Allergy Intermediate Rash Verified 11/13/17 16:36 aspirin Allergy Unknown Anaphylactic Verified 11/13/17 16:36 Shock,Not Entered butorphanol Allergy Unknown aggressive Verified 11/13/17 16:36 behavior codeine Allergy Unknown Nausea and Verified 11/13/17 16:36 Vomiting,Not Entered Iodinated Contrast- Oral and Allergy Unknown Verified 11/13/17 16:36 IV Dye Iodine and Iodide Containing Allergy Unknown Rash Verified 11/13/17 16:36 Produc [Iodine and Iodide Containing Products] latex Allergy Unknown Verified 11/13/17 16:36 levofloxacin Allergy Unknown Anaphylactic Verified 11/13/17 16:36 Shock,Not Entered Penicillins Allergy Unknown Anaphylactic Verified 11/13/17 16:36 Shock,Not Entered salicylates Allergy Unknown Verified 11/13/17 16:36 Ixqwndb-Zgb-Rcr Reductase Allergy Unknown muscle Verified 11/13/17 16:36 Inhibitor weakness [Lkeivkx-Zdi-Ckq Reductase Inhibitors] Sulfa (Sulfonamide Allergy Unknown Anaphylactic Verified 11/13/17 16:36 Antibiotics) Shock,Not Entered niacin Allergy Flushing Verified 11/13/17 16:36 morphine AdvReac Nausea and Verified 11/13/17 16:36 Vomiting Exam Comments: he is pleasant she is alert and oriented 3 she is in no distress, very pleasant Body mass index 69 large neck lungs CTA CV reg s m Abd obese soft nt T Results - Labs CBC & Chem 7: 11/14/17 01:50 Labs: lactate 3.3 labs from earlier today noted Creat 1.1 BUN noted Assessment and Plan (1) Pyelonephritis Current visit: Yes Status: Acute (2) Sepsis Current visit: No Status: Acute (3) Diabetes mellitus type 2 in obese Current visit: No Status: Chronic (4) Fibromyalgia Current visit: No Status: Chronic (5) Morbid obesity Current visit: No Status: Chronic (6) Temporal arteritis Current visit: No Status: Chronic (7) Chronic steroid use Current visit: No Status: Chronic (8) Chronic pain syndrome Current visit: No Status: Chronic (9) Presence of cardiac pacemaker Current visit: No Status: Chronic (10) GERD (gastroesophageal reflux disease) Current visit: No Status: Chronic Assessment and Plan: IV cefepime urine cx pending Severe sepsis possibly with elevated creat but no fever here, CT abd noted for perinephric stranding cont home O2 PT OT home meds to be reviewed and renewed by day physicians start levemir 15 BID 5 w meals as elisabet and resume home dosing insulin as elisabet SHAKIRA full admit DVT Prophylaxis: SQ Heparin GI Prophylaxis: Protonix Resuscitation Status: Full Code - Physician Narrative Narrative: Date: 11/14/17 Time: 329 Hospital Course Summary Disclaimer: The visit summary below is not to be considered part of the above Progress Note.
[2017-11-14] MEDS ORDERED: DEXTROSE 50% SYRINGE 50ml (1 AMP) IVP PRN (04:19)
[2017-11-14] MEDS ORDERED: ONDANSETRON 4 MG/2 ML INJECTION IVP PRN (04:19)
[2017-11-14] MEDS ORDERED: MORPHINE SULFATE 10mg/ml INJECTION IVP PRN (04:19)
[2017-11-14] MEDS ORDERED: GLUCOSE ORAL GEL 40% 37.5gm PO PRN (04:19)
[2017-11-14] MEDS ORDERED: GUAIFENESIN/DM 5ml ORAL LIQUID PO PRN (04:25)
[2017-11-14 05:07] VITALS: BMI 69.7
[2017-11-14] MEDS: CEFEPIME 1 GM in NS 100 ML IV SCH ×4 (05:52→21:37)
[2017-11-14] MEDS: INSULIN ASPART 100unit/ml INJECTION SQ PRN ×4 (07:17→21:39)
[2017-11-14] MEDS ORDERED: INSULIN GLARGINE 100unit/ml INJECTION SQ SCH (09:00)
[2017-11-14] MEDS ORDERED: PANTOPRAZOLE 40 MG INJECTION IVP SCH (09:00)
[2017-11-14] MEDS: INSULIN ASPART 100unit/ml INJECTION SQ SCH ×3 (10:09→17:20)
[2017-11-14] MEDS: HEPARIN SUB-Q 5,000units/0.5ml INJECTION SQ SCH ×2 (10:09→17:20)
[2017-11-14] MEDS: POLYETHYL GLYCOL 3350 17gm PACKET PO SCH (10:10)
[2017-11-14] MEDS: ACETAMINOPHEN 325 MG TABLET PO PRN ×2 (10:16→19:44)
[2017-11-14] MEDS ORDERED: TRAMADOL 50 MG TABLET PO ONE (12:50)
--- NOTE | 2017-11-14 14:20 | History & Physical Report ---
History of Present Illness Date: 11/14/17 HPI: reports she had low back pain that started yesterday along with nausea , also reports chills. Pt denies any fever, cp. Pt has hx of chronic UTI's and is on abx chronically. Pt reports feeling better this am. Back pain has improved and nausea is resolved. HPI from overnight: 72-year-old female presents to the emergency room for the third time in 2 days . Was seen earlier this evening diagnosed with UTI given a dose of Rocephin and discharged with antibiotics. Apparently at home she was so weak she fell wedge herself and her bed and her nightstand. states she had taken a Percocet, was out of it a bit and when she sat she missed the bed. , EMS had to extricate her from that situation , upon further evaluation in the emergency room her lactate was elevated at 3.3. She also previously complained of constipation, CAT scan performed demonstrated left kidney inflammation. but no sig constipation Yesterday presented to ER with chest pain dx costochondritis. She is complaining of a little pain on right side of chest Denies cough prod sputum, always on 2L O2, she is always in pain anant in back b/ c of PMR sugars have been in 200s today, has not taken any insulin b/c of illness, having dry heaves "today" (Thursday) Past Medical History Medical History: Medical History Cataracts, bilateral Diabetes 1.5, managed as type 2 Dyslipidemia Fibromyalgia Hypertension Hypothyroidism aquired Idiopathic pancreatitis Insomnia Osteoarthritis Psoriasis arthropathica Medical History Updates: A-fib: now s/p ablation and PPM in place. Insulin dependent diabetes mellitus. hypertension. hyperlipidemia. Temporal arteritis : still requiring prednisone. Iron-deficiency anemia. Chronic kidney disease. Recent acute kidney injury. GERD. hypothyroid. anxiety. O2 dependent. Esophagitis. Stable angina. Chronic pain. Vit D deficiency Surgical History: Tubal ligation. Hysterectomy without BSO. Thyroidectomy. Cholecystectomy. Cataract surgery. Pacemaker implantation 2016. Cardioversion 01/01/2017 Family History: Family History Father Blood clots in brain Unknown High blood pressure Cancer of breast Mother Cancer of breast Diabetes Heart attack Stroke Family History: No Significant Family History - Social History Smoking status: Former smoker Medications Home Medications Medication Instructions Recorded Confirmed Type Cholecalciferol (Vitamin D3) 1,000 unit PO TID 11/12/17 11/14/17 History [Vitamin D3] DiphenhydrAMINE [Benadryl] 25 mg PO HS 11/12/17 11/14/17 History Furosemide [Lasix 40 mg Tab] 40 mg PO BID 11/12/17 11/14/17 History Insulin Aspart [Novolog Flexpen] 28 unit SQ WB 11/12/17 11/14/17 History Insulin Aspart [Novolog Flexpen] 30 unit SQ BIDLS 11/12/17 11/14/17 History Insulin Detemir [Levemir Flextouch] 45 unit SQ BID 11/12/17 11/14/17 History Levothyroxine Sodium 150 mcg PO ACB 11/12/17 11/14/17 History Lisinopril [Prinivil] 10 mg PO DAILY 11/12/17 11/14/17 History Magnesium Oxide [Magnesium] 400 mg PO DAILY 11/12/17 11/14/17 History Multivit,Calc,Mins/Iron/Folic 1 tab PO DAILY 11/12/17 11/14/17 History [Women's Daily Caplet] Nitrofurantoin Macrocrystal 100 mg PO DAILY 11/12/17 11/14/17 History [Nitrofurantoin] Pantoprazole Tab [Protonix Tab] 40 mg PO ACB 11/12/17 11/14/17 History Potassium Chloride 10 meq PO WB 11/12/17 11/14/17 History PredniSONE [Deltasone 20 mg] 20 mg PO WB 11/12/17 11/14/17 History Sucralfate [Carafate] 1 gm PO QID 11/12/17 11/14/17 History Tizanidine [Zanaflex] 4 mg PO DAILY PRN 11/12/17 11/14/17 History Tizanidine [Zanaflex] 4 mg PO HS 11/12/17 11/14/17 History Tramadol [Ultram] 50 mg PO HS 11/12/17 11/14/17 History Vit C/E/Zn/Coppr/Lutein/Zeaxan 1 cap PO BID 11/12/17 11/14/17 History [Preservision Areds 2 Softgel] dilTIAZem HCl [Cartia Xt] 240 mg PO BID 11/12/17 11/14/17 History CephALEXin [Keflex 500 mg] 1,000 mg PO BID #40 cap 11/13/17 Rx Docusate Sodium [Colace] 200 mg PO DAILY PRN 11/13/17 11/14/17 History Ondansetron Tab [Zofran Po] 4 mg PO Q6HR #30 tab 11/13/17 11/14/17 Rx Niacin 150 mg PO 11/14/17 History Polyethylene Glycol 3350 [Laxative 17 g PO DAILY 11/14/17 11/14/17 History Peg 3350] Allergies Allergy/AdvReac Type Severity Reaction Status Date / Time Latex, Natural Rubber Allergy Intermediate Rash Verified 11/13/17 16:36 aspirin Allergy Unknown Anaphylactic Verified 11/13/17 16:36 Shock,Not Entered butorphanol Allergy Unknown aggressive Verified 11/13/17 16:36 behavior codeine Allergy Unknown Nausea and Verified 11/13/17 16:36 Vomiting,Not Entered Iodinated Contrast- Oral and Allergy Unknown Verified 11/13/17 16:36 IV Dye Iodine and Iodide Containing Allergy Unknown Rash Verified 11/13/17 16:36 Produc [Iodine and Iodide Containing Products] latex Allergy Unknown Verified 11/13/17 16:36 levofloxacin Allergy Unknown Anaphylactic Verified 11/13/17 16:36 Shock,Not Entered Penicillins Allergy Unknown Anaphylactic Verified 11/13/17 16:36 Shock,Not Entered salicylates Allergy Unknown Verified 11/13/17 16:36 Pbrgrbz-Itv-Kiq Reductase Allergy Unknown muscle Verified 11/13/17 16:36 Inhibitor weakness [Zabgjut-Jai-Uvv Reductase Inhibitors] Sulfa (Sulfonamide Allergy Unknown Anaphylactic Verified 11/13/17 16:36 Antibiotics) Shock,Not Entered niacin Allergy Flushing Verified 11/13/17 16:36 morphine AdvReac Nausea and Verified 11/13/17 16:36 Vomiting Exam Vital Signs: Temperature 98.7 F 11/14/17 07:26 Pulse Rate 71 11/14/17 08:00 Respiratory Rate 18 11/14/17 07:26 Blood Pressure 123/61 11/14/17 07:26 Pulse Oximetry 92 11/14/17 07:26 Height/Weight/BMI: Height 4 ft 11 in Weight 157 kg Body Mass Index 69.7 - Constitutional Present: no acute distress - Routine HEENT Exam Head: Present: normocephalic, atraumatic Eye: Present: EOMI ENT: Present: mucous membranes moist - Routine Respiratory Exam Present: decreased breath sounds. Absent: wheezes, crackles - Routine Cardiovascular Exam Present: RRR, no murmur - Routine Abdominal Exam Present: soft, non distended, non tender - Routine Extremities Exam Present: edema. Absent: cyanosis, clubbing - Routine Skin Exam Present: intact, dry - Routine Neurological Exam Present: alert, oriented X3 Results - Labs CBC & Chem 7: 11/14/17 01:50 Assessment and Plan (1) Temporal arteritis Current visit: No Status: Chronic (2) Fibromyalgia Current visit: No Status: Chronic (3) Chronic steroid use Current visit: No Status: Chronic (4) Morbid obesity Current visit: No Status: Chronic (5) Diabetes mellitus type 2 in obese Current visit: No Status: Chronic (6) Presence of cardiac pacemaker Current visit: No Status: Chronic (7) Sepsis Current visit: No Status: Acute (8) GERD (gastroesophageal reflux disease) Current visit: No Status: Chronic (9) Chronic pain syndrome Current visit: No Status: Chronic (10) Pyelonephritis Current visit: Yes Status: Acute Assessment and Plan: Severe Sepsis 2/2 Pyelonephritis -Flank pain, CT abd showed stranding -IV Cefepime, await Ur cx -Sepsis resolved, LA wnls DM -Novolog-->18U with meals (28U with breakfast at home, 30U BIDLS at home) -Detemir-->30U BID (45U at home) HTN -Cont. diltiazem, lisinopril -BPs elevated since holding meds LE Edema -Cont. lasix Hypothyroid -Cont. levo Afib -Unclear hx, has pacemaker but no anti-coagulation Temporal Arteritis -Cont. home prednisone 20mg -Will not stress dose at this time Chronic hypoxic failure -On 2L O2 at home, stable Ppx -Heparin - Physician Narrative Narrative: Date: 11/14/17 Time: 1358 Hospital Course Summary Disclaimer: The visit summary below is not to be considered part of the above Progress Note.
[2017-11-14] MEDS: INSULIN GLARGINE 100unit/ml INJECTION SQ SCH ×2 (17:07→21:00)
[2017-11-14] MEDS: SUCRALFATE 1 GM TABLET PO SCH ×2 (17:19→21:00)
[2017-11-14] MEDS: SALINE FLUSH 10ml SYRINGE IV PRN (17:44)
[2017-11-14] MEDS: DiphenhydrAMINE 25 MG CAPSULE PO SCH (21:00)
[2017-11-14] MEDS ORDERED: FUROSEMIDE 40 MG TABLET PO SCH (21:00)
[2017-11-14] MEDS: TRAMADOL 50 MG TABLET PO SCH (21:34)
[2017-11-15] MEDS: HEPARIN SUB-Q 5,000units/0.5ml INJECTION SQ SCH ×3 (01:14→16:49)
[2017-11-15] MEDS: CEFEPIME 1 GM in NS 100 ML IV SCH ×4 (03:36→16:59)
[2017-11-15] MEDS: INSULIN ASPART 100unit/ml INJECTION SQ PRN ×4 (06:39→21:34)
[2017-11-15] MEDS: LEVOTHYROXINE 150 MCG TABLET PO SCH (06:41)
[2017-11-15] MEDS: MULTI-VIT + MINERAL (Opti-gen) TABLET PO SCH ×2 (09:01→21:35)
[2017-11-15] MEDS: LISINOPRIL 10 MG TABLET PO SCH (09:01)
[2017-11-15] MEDS: INSULIN ASPART 100unit/ml INJECTION SQ SCH ×3 (09:01→16:48)
[2017-11-15] MEDS: INSULIN GLARGINE 100unit/ml INJECTION SQ SCH ×2 (09:01→21:33)
[2017-11-15] MEDS: SUCRALFATE 1 GM TABLET PO SCH ×4 (09:02→21:35)
[2017-11-15] MEDS: MULTI-VITAMIN + MINERAL TABLET PO SCH (09:02)
[2017-11-15] MEDS: ACETAMINOPHEN 325 MG TABLET PO PRN ×2 (09:02→13:26)
[2017-11-15] MEDS: POLYETHYL GLYCOL 3350 17gm PACKET PO SCH ×2 (09:03)
[2017-11-15] MEDS: FUROSEMIDE 40 MG TABLET PO SCH (09:03)
[2017-11-15] MEDS: PredniSONE 20 MG TABLET PO SCH (09:03)
[2017-11-15] MEDS: MAGNESIUM OXIDE 400 MG TABLET PO SCH (09:03)
--- NOTE | 2017-11-15 09:29 | CT Scan Report ---
Indication: fall, ventral/right chest wall pain/tenderness, obese PROCEDURE: CT chest wo con: Encounter: Initial Comparison: None Technique: Axial CT images were performed through the chest without intravenous contrast. Coronal and sagittal two-dimensional reformats. Automated Exposure Control and Iterative Reconstruction dose reducing techniques were utilized. Findings: Right lower lobe airspace disease with a trace right effusion. Calcified granuloma in the right upper lobe. No pneumothorax. The central airways are patent. No axillary or mediastinal adenopathy. No mediastinal hematoma. Heart is enlarged. Left pacemaker. No adenopathy. Upper abdomen shows no acute findings. Chronic right rib fractures. Impression: Mild basilar pneumonia or atelectasis with a trace right effusion. There is a preliminary report by [facility]. .
[2017-11-15] MEDS: Oxycodone *IR* 5 MG TABLET PO PRN ×2 (11:37→19:00)
--- NOTE | 2017-11-15 13:16 | Progress Note ---
- Date 11/15/17 Subjective: Pt reports she's feeling better. Denies any n/v/d, f/c, cp or sob. Pt tolerating food intake well. Objective Vital signs: Temperature 98.0 F 11/15/17 07:22 Pulse Rate 69 11/15/17 08:10 Respiratory Rate 18 11/15/17 07:22 Blood Pressure 117/58 11/15/17 07:22 Pulse Oximetry 92 11/15/17 07:22 Height/Weight/BMI: Height 4 ft 11 in Weight 156.3 kg Body Mass Index 69.7 - Constitutional Present: no acute distress - Routine HEENT Exam Head: Present: normocephalic, atraumatic Eye: Present: EOMI - Routine Respiratory Exam Present: CTA bilaterally. Absent: wheezes - Routine Cardiovascular Exam Present: RRR, no murmur - Routine Abdominal Exam Present: soft, non distended, non tender - Routine Extremities Exam Present: edema. Absent: cyanosis, clubbing - Routine Skin Exam Present: intact, dry. Absent: erythema - Routine Neurological Exam Present: alert, oriented X3 - Routine Psychiatric Exam Present: normal affect Results - Labs CBC & Chem 7: 11/15/17 05:32 11/15/17 05:32 Assessment and Plan (1) Temporal arteritis Current visit: No Status: Chronic (2) Fibromyalgia Current visit: No Status: Chronic (3) Chronic steroid use Current visit: No Status: Chronic (4) Morbid obesity Current visit: No Status: Chronic (5) Diabetes mellitus type 2 in obese Current visit: No Status: Chronic (6) Presence of cardiac pacemaker Current visit: No Status: Chronic (7) Sepsis Current visit: No Status: Acute (8) GERD (gastroesophageal reflux disease) Current visit: No Status: Chronic (9) Chronic pain syndrome Current visit: No Status: Chronic (10) Pyelonephritis Current visit: Yes Status: Acute Assessment and Plan: Severe Sepsis 2/2 Pyelonephritis -Flank pain, CT abd showed stranding -IV Cefepime, await Ur cx -Sepsis resolved, LA wnls DARREL -Cr jumped to 1.6, unclear etiology -Will give gentle IV fluids, check UA and renal US as pt has hx of stones DM -Novolog-->18U with meals (28U with breakfast at home, 30U BIDLS at home) -Detemir-->30U BID (45U at home) HTN -Cont. diltiazem, lisinopril -BPs elevated since holding meds LE Edema -Cont. lasix Hypothyroid -Cont. levo Afib -Unclear hx, has pacemaker but no anti-coagulation Temporal Arteritis -Cont. home prednisone 20mg -Will not stress dose at this time Chronic hypoxic failure -On 2L O2 at home, stable Ppx -Heparin - Physician Narrative Narrative: Date: 11/15/17 Time: 1257 Hospital Course Summary Disclaimer: The visit summary below is not to be considered part of the above Progress Note. Hospital Course: 11/15/17 Pt overall improving with IV cefepime for pyelonephritis, Cr increased today, will do work up with kidney US and UA and give fluids and recheck labs. If pt stable and continues to improve, will consider switching to PO abx tomorrow.
[2017-11-15] MEDS: DiphenhydrAMINE 25 MG CAPSULE PO SCH (21:34)
[2017-11-15] MEDS: TRAMADOL 50 MG TABLET PO SCH (21:34)
[2017-11-16] MEDS: HEPARIN SUB-Q 5,000units/0.5ml INJECTION SQ SCH ×3 (00:58→18:30)
[2017-11-16] MEDS: Oxycodone *IR* 5 MG TABLET PO PRN ×3 (01:01→18:30)
[2017-11-16] MEDS: CEFEPIME 1 GM in NS 100 ML IV SCH ×3 (01:01→18:30)
[2017-11-16] MEDS: ALBUTEROL 2.5mg/3ml (0.083%) NEB AEROSOL PRN ×2 (02:34→16:09)
[2017-11-16] MEDS: MORPHINE SULFATE 2mg INJECTION IVP PRN ×5 (02:56→14:30)
[2017-11-16] MEDS ORDERED: METOPROLOL 5mg/5ml INJECTION IVP ONE (04:08)
[2017-11-16] MEDS ORDERED: HEPARIN 1,000unit/ml INJECTION 10ml IV ONE (04:10)
[2017-11-16] MEDS ORDERED: NITROGLYCERIN 0.4 MG SUBLINGUAL TABLET SL PRN (04:10)
[2017-11-16] MEDS ORDERED: HEPARIN DRIP 20,000 UNIT/500 ML BAG IV SCH (04:10)
[2017-11-16] MEDS: HEPARIN 1,000unit/ml INJECTION 10ml IV ONE ×2 (04:21→04:43)
[2017-11-16] MEDS: INSULIN ASPART 100unit/ml INJECTION SQ PRN ×4 (06:27→21:49)
[2017-11-16] MEDS: LEVOTHYROXINE 150 MCG TABLET PO SCH (06:27)
--- NOTE | 2017-11-16 07:30 | Ultrasound Report ---
Indication: sami, possible stones? PROCEDURE: US renal BI: Encounter: Initial Comparison: None Technique: Grayscale and color Doppler sonographic imaging of both kidneys was performed. FINDINGS: Both kidneys are present with moderate cortical thinning and increased echogenicity. No right-sided hydronephrosis. No obvious left-sided hydronephrosis. Benign 1.2 cm left renal cyst. Bilateral echogenic foci could represent vascular calcifications given the absence of stones on the recent CT. 1.5 cm benign right renal cyst. Right kidney measures 14.6 cm in length. Left kidney measures 11.5 cm in length. Impression: No gross hydronephrosis. There is a preliminary report by [facility]. .
[2017-11-16] MEDS: MULTI-VITAMIN + MINERAL TABLET PO SCH (08:27)
[2017-11-16] MEDS: PredniSONE 20 MG TABLET PO SCH (08:27)
[2017-11-16] MEDS: SUCRALFATE 1 GM TABLET PO SCH ×4 (08:27→21:32)
[2017-11-16] MEDS: MULTI-VIT + MINERAL (Opti-gen) TABLET PO SCH ×2 (08:27→21:31)
[2017-11-16] MEDS: MAGNESIUM OXIDE 400 MG TABLET PO SCH (08:27)
[2017-11-16] MEDS: POLYETHYL GLYCOL 3350 17gm PACKET PO SCH ×2 (08:28)
[2017-11-16] MEDS: INSULIN GLARGINE 100unit/ml INJECTION SQ SCH ×2 (08:28→21:34)
[2017-11-16] MEDS: INSULIN ASPART 100unit/ml INJECTION SQ SCH ×3 (08:29→18:30)
[2017-11-16] MEDS ORDERED: MAG-AL + SIM ORAL LIQUID 30ml PO PRN (11:57)
--- NOTE | 2017-11-16 12:01 | Progress Note ---
- Date 11/16/17 Subjective: Juliann is seen today in follow up for her severe sepsis secondary to pyelonephritis and acute kidney injury. She is seen while resting in bed, watching TV. She reports that she feels "fair" and complains of decreased appetite as well as nausea without vomiting. She also complains of generalized chest pain which she reports has been off and on for "months" and is worse with breathing and eating. No fevers, chills, increased shortness of breath, abdominal pain or diarrhea. Initial labs today revealed hyperkalemia with potassium 5.5. Specimen was noted to be hemolyzed and was redrawn with repeat potassium stable at 4.4. Troponin was <0.012 and EKG remains stable. Objective Vital signs: Temperature 97.8 F 11/16/17 07:29 Pulse Rate 71 11/16/17 07:29 Respiratory Rate 18 11/16/17 07:29 Blood Pressure 143/65 H 11/16/17 07:29 Pulse Oximetry 90 11/16/17 07:29 Height/Weight/BMI: Height 4 ft 11 in Weight 347 lb 10.703 oz Body Mass Index 69.7 Comments: Resting in bed, watching TV. - Constitutional Present: no acute distress, well nourished, well developed, morbidly obese (BMI >70), cooperative - Routine HEENT Exam Head: Present: normocephalic, atraumatic Eye: Present: PERRL. Absent: conjunctival icterus ENT: Present: mucous membranes moist, oropharynx clear - Routine Respiratory Exam Present: decreased breath sounds, prolonged expiratory phase, wheezes, diminished air movement. Absent: respiratory distress - Routine Cardiovascular Exam Present: RRR, S1, S2 - Routine Abdominal Exam Present: soft, normoactive bowel sounds, non tender - Routine Extremities Exam Present: edema (trace - 1+), non tender, full ROM, pulses intact - Routine Back/Spine/Pelvis Exam Back/Spine: Present: full ROM. Absent: vertebral tenderness - Routine Musculoskeletal Exam Musculoskeletal: Present: no clubbing or cyanosis, moving extremities well - Routine Skin Exam Present: intact, dry, warm Comments: Afebrile. - Routine Neurological Exam Present: alert, oriented X3, moving all extremities, hearing grossly intact, normal speech - Routine Lymphatic Exam Lymphatic: Absent: lymphedema - Routine Psychiatric Exam Present: cooperative Results - Labs CBC & Chem 7: 11/16/17 04:18 11/16/17 09:59 Microbiology Results: Microbiology 11/15/17 16:04 Urine, Voided (Cc/notcc) Urine Culture - Preliminary Culture Initiated - Results Pending Assessment and Plan (1) Sepsis Problem details: severe as indicated by tachypnea, leukocytosis, elevated lactate 3.3 Current visit: No Status: Acute (2) Pyelonephritis Current visit: Yes Status: Acute (3) Temporal arteritis Current visit: No Status: Chronic (4) Fibromyalgia Current visit: No Status: Chronic (5) Chronic steroid use Current visit: No Status: Chronic (6) Morbid obesity Current visit: No Status: Chronic (7) Diabetes mellitus type 2 in obese Current visit: No Status: Chronic (8) Presence of cardiac pacemaker Current visit: No Status: Chronic (9) GERD (gastroesophageal reflux disease) Current visit: No Status: Chronic (10) Chronic pain syndrome Current visit: No Status: Chronic Assessment and Plan: Severe Sepsis 2/2 Pyelonephritis -Flank pain, CT abd showed stranding on admission. -Renal ultrasound unremarkable. -Leukocytosis resolved. -Continue IV Cefepime - UA culture from 11/13 prior to admission revealed Enterobacter cloacae sensitive to cefepime and cipro. Will plan to discharge home on cipro. -Sepsis resolved. -Anticipate discharge in near future, hopefully tomorrow 11/17 DARREL -Cr jumped to 1.6, unclear etiology - trending down and improving with gentle IV fluids. -Renal ultrasound unremarkable. Continue to monitor. DM -Blood sugars elevated but oral intake remains decreased. -Continue decreased dose of Novolog-->18U with meals (28U with breakfast at home , 30U BIDLS at home). Continue sliding scale and monitor closely. -Continue decreased dose of Detemir-->30U BID (45U at home). HTN -Continue home diltiazem, lisinopril - well controlled. LE Edema -Cont. lasix and monitor daily weight as well as electrolytes. -Monitor respiratory function and signs of fluid overload. Hypothyroid -Cont. home levo Afib -Unclear hx, has pacemaker but no anti-coagulation. -Continue to monitor closely on telemetry. Temporal Arteritis -Cont. home prednisone 20mg -Will not stress dose at this time Chronic hypoxic failure -On 2L O2 at home, stable Chest pain, atypical and pleuritic. -Suspect related to GI. -Initiate Protonix 20mg PO BID for GERD. -Tums and maalox PRN. -Troponin <0.012. Continue to monitor closely on telemetry. Ppx -Heparin DVT Prophylaxis: SQ Heparin GI Prophylaxis: Protonix Resuscitation Status: Full Code - Time spent with patient Time with patient PN: 30 minutes - Physician Narrative Narrative: Date: 11/16/17 Time: 1458 S: Pt reports feeling better, denies any n/v/d, f/c, or sob. Does report cp overnight, reports she has had this cp on and off for months and it seems to be related to when she eats. Denies radiation of pain. O: Gen: no acute distress Cards: RRR without murmurs A/p: Pt continues to improve, will cont. tx for pyelo and plan on switching to PO abx and discharge tomorrow. CP is likely of GI source, will try trial of PPI. EKG trop unremarkable. Hospital Course Summary Disclaimer: The visit summary below is not to be considered part of the above Progress Note. Hospital Course: 11/15/17 Pt overall improving with IV cefepime for pyelonephritis, Cr increased today, will do work up with kidney US and UA and give fluids and recheck labs. If pt stable and continues to improve, will consider switching to PO abx tomorrow. 11/16/17 Making slow gains. Leukocytosis resolved. Electrolytes stable. Persistent hyperglycemia though oral intake is decreased. Continue decreased home insulins with sliding scale and continue to monitor closely. UA culture from 11/13 prior to admission revealed Enterobacter cloacae. Repeat UA culture pending. Continue Cefepime IV and plan to discharge home on cipro. Anticipate discharge in near future, hopefully tomorrow 11/17/17.
--- NOTE | 2017-11-16 16:44 | XRay Report ---
Indication: dyspnea PROCEDURE: XR chest 1V: Encounter: Initial Comparison: 11/12/2017 Findings: There is a left subclavian triple lead pacemaker in place, unchanged. There is cardiomegaly and pulmonary vascular congestion with perhaps mild interstitial prominence. No definite lobar consolidation or pleural effusion. Trachea is midline. No subdiaphragmatic free air. Impression: Mild CHF. .
[2017-11-16] MEDS: PANTOPRAZOLE 20 MG TABLET PO SCH (18:30)
[2017-11-16] MEDS: DiphenhydrAMINE 25 MG CAPSULE PO SCH (21:32)
[2017-11-16] MEDS: TRAMADOL 50 MG TABLET PO SCH (21:33)
[2017-11-16] MEDS: FUROSEMIDE 40 MG/4 ML INJECTION IVP SCH (21:35)
[2017-11-17] MEDS: HEPARIN SUB-Q 5,000units/0.5ml INJECTION SQ SCH ×3 (01:49→16:25)
[2017-11-17] MEDS: CEFEPIME 1 GM in NS 100 ML IV SCH ×2 (01:49→10:44)
[2017-11-17] MEDS: Oxycodone *IR* 5 MG TABLET PO PRN ×4 (01:50→19:14)
[2017-11-17] MEDS: ACETAMINOPHEN 325 MG TABLET PO PRN ×3 (04:16→20:57)
[2017-11-17] MEDS: INSULIN ASPART 100unit/ml INJECTION SQ PRN ×4 (06:43→20:55)
[2017-11-17] MEDS: LEVOTHYROXINE 150 MCG TABLET PO SCH (06:43)
[2017-11-17] MEDS: PANTOPRAZOLE 20 MG TABLET PO SCH ×2 (06:43→16:25)
[2017-11-17] MEDS: MULTI-VIT + MINERAL (Opti-gen) TABLET PO SCH ×2 (08:04→20:54)
[2017-11-17] MEDS: MULTI-VITAMIN + MINERAL TABLET PO SCH (08:04)
[2017-11-17] MEDS: PredniSONE 20 MG TABLET PO SCH (08:04)
[2017-11-17] MEDS: SUCRALFATE 1 GM TABLET PO SCH ×4 (08:05→20:54)
[2017-11-17] MEDS: INSULIN ASPART 100unit/ml INJECTION SQ SCH ×3 (08:06→19:13)
[2017-11-17] MEDS: INSULIN GLARGINE 100unit/ml INJECTION SQ SCH ×2 (08:06→20:55)
[2017-11-17] MEDS: MAGNESIUM OXIDE 400 MG TABLET PO SCH (08:07)
[2017-11-17] MEDS: POLYETHYL GLYCOL 3350 17gm PACKET PO SCH ×2 (08:07)
[2017-11-17] MEDS: FUROSEMIDE 40 MG/4 ML INJECTION IVP SCH ×2 (08:07→20:54)
--- NOTE | 2017-11-17 09:19 | XRay Report ---
INDICATION: sob PROCEDURE: CHEST 2-VIEWS UPRIGHT (PA & LAT) Encounter: Initial COMPARISON: November 16, 2017 FINDINGS: Continued findings of congestive failure with worsening consolidation in the left lung. Small pleural effusions. No pneumothorax. Heart size and mediastinal contours are grossly stable. Left pacemaker. Lateral views are nondiagnostic. Impression: Worsening congestive failure and left-sided infiltrate. .
[2017-11-17] MEDS ORDERED: CIPROFLOXACIN 500 MG TABLET PO SCH (14:00)
--- NOTE | 2017-11-17 14:05 | Progress Note ---
- Date 11/17/17 Subjective: Pt repots feeling a bit better this am. Denies any acute cp but does report some sob. Denies any n/v/d, f/c, cough. Pt tolerating PO intake well. Objective Vital signs: Temperature 97.6 F 11/17/17 07:56 Pulse Rate 69 11/17/17 09:00 Respiratory Rate 24 11/17/17 07:56 Blood Pressure 159/86 H 11/17/17 07:56 Pulse Oximetry 95 11/17/17 08:04 Height/Weight/BMI: Height 4 ft 11 in Weight 156.9 kg Body Mass Index 69.7 - Constitutional Present: no acute distress - Routine HEENT Exam Head: Present: normocephalic, atraumatic Eye: Present: EOMI ENT: Present: mucous membranes moist - Routine Respiratory Exam Present: decreased breath sounds - Routine Cardiovascular Exam Present: RRR, no murmur - Routine Abdominal Exam Present: soft, non distended, non tender - Routine Extremities Exam Present: edema. Absent: cyanosis, clubbing - Routine Skin Exam Present: intact, dry. Absent: erythema - Routine Neurological Exam Present: alert, oriented X3 Results - Labs CBC & Chem 7: 11/17/17 04:11 11/17/17 04:11 Microbiology Results: Microbiology 11/15/17 16:04 Urine, Voided (Cc/notcc) Urine Culture - Preliminary No Growth After 1 Day - ABG Interpretation ABG results: 11/16/17 17:01 ABG pH 7.349 L ABG pCO2 49 H ABG pO2 70.5 L ABG HCO3 27.1 H ABG Total CO2 28.6 H ABG O2 Saturation 92.8 L ABG Base Excess 0.9 Assessment and Plan (1) Sepsis Problem details: severe as indicated by tachypnea, leukocytosis, elevated lactate 3.3 Current visit: No Status: Acute (2) Pyelonephritis Current visit: Yes Status: Acute (3) Temporal arteritis Current visit: No Status: Chronic (4) Fibromyalgia Current visit: No Status: Chronic (5) Chronic steroid use Current visit: No Status: Chronic (6) Morbid obesity Current visit: No Status: Chronic (7) Diabetes mellitus type 2 in obese Current visit: No Status: Chronic (8) Presence of cardiac pacemaker Current visit: No Status: Chronic (9) GERD (gastroesophageal reflux disease) Current visit: No Status: Chronic (10) Chronic pain syndrome Current visit: No Status: Chronic Assessment and Plan: Severe Sepsis 2/2 Pyelonephritis-Resolved -Flank pain, CT abd showed stranding on admission. -Renal ultrasound unremarkable -Leukocytosis resolved. - UA culture from 11/13 prior to admission revealed Enterobacter cloacae sensitive to cefepime and cipro -Received 3 days of Cefepime, will now switch to cipro D1 Acute on Chronic Hypoxic Resp. failure -CXR shows pulm edema, on 2-3L O2 at baseline, currently on 6L -Likely 2/2 IV fluids given with abx, changing to PO -Not aware of any CHF hx?? will do BNP and consider echo -IV lasix, monitor weights DARREL-Resolved -Cr peaked at 1.6, now back to normal -Renal ultrasound unremarkable. Continue to monitor. DM -Blood sugars elevated but oral intake remains decreased. -Continue decreased dose of Novolog-->18U with meals (28U with breakfast at home , 30U BIDLS at home). Continue sliding scale and monitor closely. -Continue decreased dose of Detemir-->30U BID (45U at home). HTN -Continue home diltiazem, lisinopril - well controlled. Hypothyroid -Cont. home levo Afib -Unclear hx, has pacemaker but no anti-coagulation? -Continue to monitor closely on telemetry. Temporal Arteritis -Cont. home prednisone 20mg -Will not stress dose at this time Chest pain, atypical and pleuritic. -Suspect related to GI. -Initiate Protonix 20mg PO BID for GERD. -Tums and maalox PRN. -Troponin <0.012. Continue to monitor closely on telemetry. Ppx -Heparin - Physician Narrative Narrative: Date: 11/17/17 Time: 1351 Hospital Course Summary Disclaimer: The visit summary below is not to be considered part of the above Progress Note. Hospital Course: 11/15/17 Pt overall improving with IV cefepime for pyelonephritis, Cr increased today, will do work up with kidney US and UA and give fluids and recheck labs. If pt stable and continues to improve, will consider switching to PO abx tomorrow. 11/16/17 Making slow gains. Leukocytosis resolved. Electrolytes stable. Persistent hyperglycemia though oral intake is decreased. Continue decreased home insulins with sliding scale and continue to monitor closely. UA culture from 11/13 prior to admission revealed Enterobacter cloacae. Repeat UA culture pending. Continue Cefepime IV and plan to discharge home on cipro. Anticipate discharge in near future, hopefully tomorrow 11/17/17. 11/17/17 Pt requiring more O2, cxr shows pulm edema, will do iv lasix. Changed IV abx to PO. Monito
[2017-11-17] MEDS ORDERED: ALBUTEROL/IPRATROPIUM 2.5mg-0.5mg/3ml NEB AEROSOL PRN (14:20)
[2017-11-17] MEDS ORDERED: GUAIFENESIN 200mg/10ml ORAL LIQUID PO PRN (14:20)
[2017-11-17] MEDS: CALCIUM CARBONATE Chewable 750mg TABLET PO PRN ×2 (20:54→20:56)
[2017-11-17] MEDS: DiphenhydrAMINE 25 MG CAPSULE PO SCH (20:54)
[2017-11-17] MEDS: TRAMADOL 50 MG TABLET PO SCH ×2 (20:54→23:06)
[2017-11-17] MEDS: SALINE FLUSH 10ml SYRINGE IV PRN (20:56)
[2017-11-17] MEDS: CIPROFLOXACIN 500 MG TABLET PO SCH (23:07)
[2017-11-18] MEDS: HEPARIN SUB-Q 5,000units/0.5ml INJECTION SQ SCH ×3 (03:19→17:11)
[2017-11-18] MEDS: Oxycodone *IR* 5 MG TABLET PO PRN ×4 (04:52→21:19)
[2017-11-18] MEDS: CIPROFLOXACIN 500 MG TABLET PO SCH ×2 (06:24→22:55)
[2017-11-18] MEDS: LEVOTHYROXINE 150 MCG TABLET PO SCH (06:24)
[2017-11-18] MEDS: PANTOPRAZOLE 20 MG TABLET PO SCH ×2 (06:24→17:11)
[2017-11-18] MEDS: INSULIN ASPART 100unit/ml INJECTION SQ PRN ×4 (06:46→21:25)
[2017-11-18] MEDS: INSULIN ASPART 100unit/ml INJECTION SQ SCH ×4 (09:17→18:01)
[2017-11-18] MEDS: PredniSONE 20 MG TABLET PO SCH (09:19)
[2017-11-18] MEDS: FUROSEMIDE 40 MG/4 ML INJECTION IVP SCH (09:20)
[2017-11-18] MEDS: LISINOPRIL 10 MG TABLET PO SCH (09:21)
[2017-11-18] MEDS: INSULIN GLARGINE 100unit/ml INJECTION SQ SCH ×2 (09:21→21:25)
[2017-11-18] MEDS: MULTI-VIT + MINERAL (Opti-gen) TABLET PO SCH ×2 (09:22→21:20)
[2017-11-18] MEDS: SUCRALFATE 1 GM TABLET PO SCH ×4 (09:22→21:21)
[2017-11-18] MEDS: MAGNESIUM OXIDE 400 MG TABLET PO SCH (09:22)
[2017-11-18] MEDS: ACETAMINOPHEN 325 MG TABLET PO PRN (09:28)
[2017-11-18] MEDS: POLYETHYL GLYCOL 3350 17gm PACKET PO SCH ×2 (09:49)
[2017-11-18] MEDS: MULTI-VITAMIN + MINERAL TABLET PO SCH (09:58)
[2017-11-18] MEDS: CALCIUM CARBONATE Chewable 750mg TABLET PO PRN (10:00)
--- NOTE | 2017-11-18 13:17 | Progress Note ---
- Date 11/18/17 Subjective: Pt reports her on and off again cp is back this am. Breakfast this am made it worse. It does not radiate anywhere. This pain has been there for months. Denies any n/v, f/c. Does report some sob. Objective Vital signs: Temperature 98.4 F 11/17/17 15:20 Pulse Rate 69 11/18/17 10:11 Respiratory Rate 24 11/18/17 11:45 Blood Pressure 129/66 11/18/17 07:22 Pulse Oximetry 91 11/18/17 12:42 Height/Weight/BMI: Height 4 ft 11 in Weight 153.7 kg Body Mass Index 69.7 - Constitutional Present: no acute distress - Routine HEENT Exam Head: Present: normocephalic, atraumatic Eye: Present: EOMI ENT: Present: mucous membranes moist - Routine Respiratory Exam Present: CTA bilaterally. Absent: wheezes - Routine Cardiovascular Exam Present: RRR, no murmur - Routine Abdominal Exam Present: soft, non distended, non tender - Routine Extremities Exam Present: edema. Absent: cyanosis, clubbing - Routine Skin Exam Present: intact, dry. Absent: erythema - Routine Neurological Exam Present: alert, oriented X3 Results - Labs CBC & Chem 7: 11/18/17 04:03 11/18/17 04:03 Microbiology Results: Microbiology 11/15/17 16:04 Urine, Voided (Cc/notcc) Urine Culture - Final No Growth After 2 Days - ABG Interpretation ABG results: 11/16/17 11/18/17 17:01 12:17 ABG pH 7.349 L 7.311 L ABG pCO2 49 H 65 H* ABG pO2 70.5 L 85.3 ABG HCO3 27.1 H 32.8 H ABG Total CO2 28.6 H 34.8 H ABG O2 Saturation 92.8 L 95.0 ABG Base Excess 0.9 4.9 H Assessment and Plan (1) Sepsis Problem details: severe as indicated by tachypnea, leukocytosis, elevated lactate 3.3 Current visit: No Status: Acute (2) Pyelonephritis Current visit: Yes Status: Acute (3) Temporal arteritis Current visit: No Status: Chronic (4) Fibromyalgia Current visit: No Status: Chronic (5) Chronic steroid use Current visit: No Status: Chronic (6) Morbid obesity Current visit: No Status: Chronic (7) Diabetes mellitus type 2 in obese Current visit: No Status: Chronic (8) Presence of cardiac pacemaker Current visit: No Status: Chronic (9) GERD (gastroesophageal reflux disease) Current visit: No Status: Chronic (10) Chronic pain syndrome Current visit: No Status: Chronic Assessment and Plan: Severe Sepsis 2/2 Pyelonephritis-Resolved -Flank pain, CT abd showed stranding on admission. -Renal ultrasound unremarkable -Leukocytosis resolved. -UA culture from 11/13 prior to admission revealed Enterobacter cloacae sensitive to cefepime and cipro -Received 3 days of Cefepime, now on cipro D2 Acute on Chronic Hypoxic Hypercapnic Resp. failure -CXR shows pulm edema, on 2-3L O2 at baseline, currently on 6L -Likely 2/2 IV fluids given with abx -BNP moderately elevated at ~2500, will -IV lasix, monitor weights -Hypercapnia likely from obesity hypoventilation-->Will do bipap DARREL-Resolved -Cr peaked at 1.6, now back to normal -Renal ultrasound unremarkable. Continue to monitor. DM -Blood sugars elevated but oral intake remains decreased. -Continue decreased dose of Novolog-->18U with meals (28U with breakfast at home , 30U BIDLS at home). Continue sliding scale and monitor closely. -Continue decreased dose of Detemir-->30U BID (45U at home). HTN -Continue home diltiazem, lisinopril - well controlled. Hypothyroid -Cont. home levo Afib -Unclear hx, has pacemaker but no anti-coagulation? -Continue to monitor closely on telemetry. Temporal Arteritis -Cont. home prednisone 20mg -Will not stress dose at this time Chest pain, atypical and pleuritic. -Suspect related to GI. -Initiate Protonix 20mg PO BID for GERD. -Tums and maalox PRN. -EKGs stable, Troponin <0.012. Continue to monitor closely on telemetry. Ppx -Heparin - Physician Narrative Narrative: Date: 11/18/17 Time: 1314 Hospital Course Summary Disclaimer: The visit summary below is not to be considered part of the above Progress Note. Hospital Course: 11/15/17 Pt overall improving with IV cefepime for pyelonephritis, Cr increased today, will do work up with kidney US and UA and give fluids and recheck labs. If pt stable and continues to improve, will consider switching to PO abx tomorrow. 11/16/17 Making slow gains. Leukocytosis resolved. Electrolytes stable. Persistent hyperglycemia though oral intake is decreased. Continue decreased home insulins with sliding scale and continue to monitor closely. UA culture from 11/13 prior to admission revealed Enterobacter cloacae. Repeat UA culture pending. Continue Cefepime IV and plan to discharge home on cipro. Anticipate discharge in near future, hopefully tomorrow 11/17/17. 11/17/17 Pt requiring more O2, cxr shows pulm edema, will do iv lasix. Changed IV abx to PO. Monito 11/18/[address] still not at baseline, hypercapnia likely 2/2 hypoventilation and hypoxia likely 2/2 to fluids, will do bipap and diuretics and monitor.
[2017-11-18] MEDS: TRAMADOL 50 MG TABLET PO SCH (22:54)
[2017-11-18] MEDS: DiphenhydrAMINE 25 MG CAPSULE PO SCH (22:55)
[2017-11-19] MEDS: HEPARIN SUB-Q 5,000units/0.5ml INJECTION SQ SCH ×3 (01:31→17:27)
[2017-11-19] MEDS: PANTOPRAZOLE 20 MG TABLET PO SCH ×2 (04:48→05:36)
[2017-11-19] MEDS: SUCRALFATE 1 GM TABLET PO SCH ×5 (04:48→21:07)
[2017-11-19] MEDS: Oxycodone *IR* 5 MG TABLET PO PRN ×3 (05:01→20:37)
[2017-11-19] MEDS: ACETAMINOPHEN 325 MG TABLET PO PRN ×2 (06:08→17:27)
[2017-11-19] MEDS: LEVOTHYROXINE 150 MCG TABLET PO SCH (07:23)
[2017-11-19] MEDS: CIPROFLOXACIN 500 MG TABLET PO SCH (07:23)
--- NOTE | 2017-11-19 08:16 | Ultrasound Report ---
Indication: rule out blood clots PROCEDURE: US venous doppler LE BI: Encounter: Initial Comparison: None Technique: Color Doppler duplex and grayscale sonographic imaging of both lower extremities was performed. Findings: There is no evidence for acute deep venous thrombosis in either thigh. Specifically, serial graded compression was performed from the inguinal ligament to the popliteal bifurcation, bilaterally, demonstrating appropriate compressibility of the deep venous system. In addition, color and pulsed Doppler demonstrate appropriate spontaneous flow, variation with respiration, and augmentation with calf compression. At the ankle, normal flow is identified in the posterior tibial veins; these vessels are also normal in caliber. Impression: No evidence of acute DVT in either lower limb. There is a preliminary report by [facility]. .
[2017-11-19] MEDS ORDERED: FUROSEMIDE 40 MG/4 ML INJECTION IVP SCH (09:00)
[2017-11-19] MEDS: INSULIN ASPART 100unit/ml INJECTION SQ SCH ×4 (10:13→19:01)
[2017-11-19] MEDS: POLYETHYL GLYCOL 3350 17gm PACKET PO SCH ×2 (10:15)
[2017-11-19] MEDS: MULTI-VITAMIN + MINERAL TABLET PO SCH (10:16)
[2017-11-19] MEDS: PredniSONE 20 MG TABLET PO SCH (10:25)
[2017-11-19] MEDS: LISINOPRIL 10 MG TABLET PO SCH (10:25)
[2017-11-19] MEDS: MULTI-VIT + MINERAL (Opti-gen) TABLET PO SCH ×2 (10:25→21:07)
[2017-11-19] MEDS: INSULIN GLARGINE 100unit/ml INJECTION SQ SCH ×2 (10:25→21:25)
[2017-11-19] MEDS: MAGNESIUM OXIDE 400 MG TABLET PO SCH (10:26)
[2017-11-19] MEDS ORDERED: SALINE FLUSH 10ml SYRINGE ONE (11:10)
--- NOTE | 2017-11-19 11:51 | XRay Report ---
Indication: 1V CXR FOR VQ PROCEDURE: XR chest 1V for NM procedure: Encounter: Initial Comparison: November 17, 2017 Findings: Persistent airspace consolidation in the left upper lobe with worsening opacity in the right lower lobe. Small pleural effusions are increased. No pneumothorax. Left pacemaker noted. Heart size and mediastinal contours are grossly stable. Impression: Worsening appearance of the chest with increasing pleural fluid and right lower lobe airspace disease. .
--- NOTE | 2017-11-19 11:56 | Nuclear Medicine Report ---
Indication: checking for pulm emboli PROCEDURE: NM pul vent and perfuse: Comparison: Chest x-ray from today Technique: The patient received 41.7mCi aerosolized Tc-99m DTPA prior to obtaining ventilation images. Next, 6.3 mCi of Tc-99m MAA was administered intravenously prior to obtaining perfusion images in the standard 8 views. A chest x-ray from today was reviewed. Findings: Ventilation images demonstrate radiotracer uptake throughout both lungs with no focal ventilation defects. There is increased tracer uptake in the medial aspect of the right lung on both the ventilation and perfusion images which could be due to stasis. No segmental perfusion defects identified. No segmental or larger ventilation perfusion mismatches. Impression: Low probability lung ventilation/perfusion scan for pulmonary embolus (approximately 15% probability). .
--- NOTE | 2017-11-19 13:58 | Pulmonology Consult Note ---
History of Present Illness Consult date: 11/19/17 Requesting physician: Shante Aparicio Reason for consult: hypoxemia Chief complaint: short of breath History of present illness: reports she had low back pain that started yesterday along with nausea , also reports chills. Pt denies any fever, cp. Pt has hx of chronic UTI's and is on abx chronically. Pt reports feeling better this am. Back pain has improved and nausea is resolved. 72-year-old female presents to the emergency room for the third time in 2 days . Was seen earlier this evening diagnosed with UTI given a dose of Rocephin and discharged with antibiotics. Apparently at home she was so weak she fell wedge herself and her bed and her nightstand. states she had taken a Percocet, was out of it a bit and when she sat she missed the bed. , EMS had to extricate her from that situation , upon further evaluation in the emergency room her lactate was elevated at 3.3. She also previously complained of constipation, CAT scan performed demonstrated left kidney inflammation. but no sig constipation Yesterday presented to ER with chest pain dx costochondritis. She is complaining of a little pain on right side of chest Denies cough prod sputum, always on 2L O2, she is always in pain anatn in back b/ c of PMR sugars have been in 200s today, has not taken any insulin b/c of illness, having dry heaves "today" (Thursday) Past Medical History Medical History: Medical History Cataracts, bilateral Diabetes 1.5, managed as type 2 Dyslipidemia Fibromyalgia Hypertension Hypothyroidism aquired Idiopathic pancreatitis Insomnia Osteoarthritis Psoriasis arthropathica Medical History Updates: A-fib: now s/p ablation and PPM in place. Insulin dependent diabetes mellitus. hypertension. hyperlipidemia. Temporal arteritis : still requiring prednisone. Iron-deficiency anemia. Chronic kidney disease. Recent acute kidney injury. GERD. hypothyroid. anxiety. O2 dependent. Esophagitis. Stable angina. Chronic pain. Vit D deficiency Surgical History: Tubal ligation. Hysterectomy without BSO. Thyroidectomy. Cholecystectomy. Cataract surgery. Pacemaker implantation 2017. Cardioversion 01/01/2017 Family History: Family History Father Blood clots in brain Unknown High blood pressure Cancer of breast Mother Cancer of breast Diabetes Heart attack Stroke Family History: No Significant Family History - Social History Smoking status: non smoker Review of Systems All systems: reviewed and no additional remarkable complaints except as stated PFSH Patient Stated Medical History Peripheral Neuropathy Yes Cataracts Yes Macular Degeneration Yes Other HEENT glasses for nearsighted Angina Yes Cardiac Arrhythmia Yes: a fib/flutter Hypertension Yes Bronchitis Yes Sleep Apnea Yes Diabetes Mellitus Type 2 Yes Gastroesophageal Reflux Yes Disease Other GI Yes: IBS,hemarroids Hx Incontinence Yes Hx Renal Disease No Hx Urinary Tract Infection Yes Other Yes: stents after kidney stone removal ,removed Osteoarthritis Yes Other Musculoskeletal Yes: fibrymalgia Sepsis Yes: Twice Other Infectious Yes: psorasis Depression Yes Post Menopausal Yes Clinic Medical History Cataracts, bilateral (Acute Medical) Diabetes 1.5, managed as type 2 (Acute Medical) Dyslipidemia (Acute Medical) Fibromyalgia (Acute Medical) Hypertension (Acute Medical) Hypothyroidism (Acute Medical) aquired Idiopathic pancreatitis (Acute Medical) Insomnia (Acute Medical) Osteoarthritis (Acute Medical) Psoriasis arthropathica (Acute Medical) Medical History Updates: A-fib: now s/p ablation and PPM in place. Insulin dependent diabetes mellitus. hypertension. hyperlipidemia. Temporal arteritis : still requiring prednisone. Iron-deficiency anemia. Chronic kidney disease. Recent acute kidney injury. GERD. hypothyroid. anxiety. O2 dependent. Esophagitis. Stable angina. Chronic pain. Vit D deficiency Surgical History: Tubal ligation. Hysterectomy without BSO. Thyroidectomy. Cholecystectomy. Cataract surgery. Pacemaker implantation 2016. Cardioversion 01/01/2017 Family History: Family History Father Blood clots in brain Unknown High blood pressure Cancer of breast Mother Cancer of breast Diabetes Heart attack Stroke - Social History Smoking status: Former smoker Substance use type: does not use Alcohol intake: former Alcohol intake frequency: does not drink Housing: house Household members: none Current occupational status: retired Current residence: Apartment/Private Home Medications Home Medications Medication Instructions Recorded Confirmed Type Cholecalciferol (Vitamin D3) 1,000 unit PO TID 11/12/17 11/14/17 History [Vitamin D3] DiphenhydrAMINE [Benadryl] 25 mg PO HS 11/12/17 11/14/17 History Furosemide [Lasix 40 mg Tab] 40 mg PO BID 11/12/17 11/14/17 History Insulin Aspart [Novolog Flexpen] 28 unit SQ WB 11/12/17 11/14/17 History Insulin Aspart [Novolog Flexpen] 30 unit SQ BIDLS 11/12/17 11/14/17 History Insulin Detemir [Levemir Flextouch] 45 unit SQ BID 11/12/17 11/14/17 History Levothyroxine Sodium 150 mcg PO ACB 11/12/17 11/14/17 History Lisinopril [Prinivil] 10 mg PO DAILY 11/12/17 11/14/17 History Magnesium Oxide [Magnesium] 400 mg PO DAILY 11/12/17 11/14/17 History Multivit,Calc,Mins/Iron/Folic 1 tab PO DAILY 11/12/17 11/14/17 History [Women's Daily Caplet] Nitrofurantoin Macrocrystal 100 mg PO DAILY 11/12/17 11/14/17 History [Nitrofurantoin] Pantoprazole Tab [Protonix Tab] 40 mg PO ACB 11/12/17 11/14/17 History Potassium Chloride 10 meq PO WB 11/12/17 11/14/17 History PredniSONE [Deltasone 20 mg] 20 mg PO WB 11/12/17 11/14/17 History Sucralfate [Carafate] 1 gm PO QID 11/12/17 11/14/17 History Tizanidine [Zanaflex] 4 mg PO DAILY PRN 11/12/17 11/14/17 History Tizanidine [Zanaflex] 4 mg PO HS 11/12/17 11/14/17 History Tramadol [Ultram] 50 mg PO HS 11/12/17 11/14/17 History Vit C/E/Zn/Coppr/Lutein/Zeaxan 1 cap PO BID 11/12/17 11/14/17 History [Preservision Areds 2 Softgel] dilTIAZem HCl [Cartia Xt] 240 mg PO BID 11/12/17 11/14/17 History CephALEXin [Keflex 500 mg] 1,000 mg PO BID #40 cap 11/13/17 Rx Docusate Sodium [Colace] 200 mg PO DAILY PRN 11/13/17 11/14/17 History Ondansetron Tab [Zofran Po] 4 mg PO Q6HR #30 tab 11/13/17 11/14/17 Rx Niacin 150 mg PO 11/14/17 History Polyethylene Glycol 3350 [Laxative 17 g PO DAILY 11/14/17 11/14/17 History Peg 3350] Allergies Allergy/AdvReac Type Severity Reaction Status Date / Time Latex, Natural Rubber Allergy Intermediate Rash Verified 11/13/17 16:36 aspirin Allergy Unknown Anaphylactic Verified 11/13/17 16:36 Shock,Not Entered butorphanol Allergy Unknown aggressive Verified 11/13/17 16:36 behavior Iodinated Contrast- Oral and Allergy Unknown Verified 11/13/17 16:36 IV Dye Iodine and Iodide Containing Allergy Unknown Rash Verified 11/13/17 16:36 Produc [Iodine and Iodide Containing Products] latex Allergy Unknown Verified 11/13/17 16:36 levofloxacin Allergy Unknown Anaphylactic Verified 11/13/17 16:36 Shock,Not Entered Penicillins Allergy Unknown Anaphylactic Verified 11/13/17 16:36 Shock,Not Entered salicylates Allergy Unknown Verified 11/13/17 16:36 Gigwwar-Ivx-Wky Reductase Allergy Unknown muscle Verified 11/13/17 16:36 Inhibitor weakness [Hbrcsdk-Hwa-Mut Reductase Inhibitors] Sulfa (Sulfonamide Allergy Unknown Anaphylactic Verified 11/13/17 16:36 Antibiotics) Shock,Not Entered niacin Allergy Flushing Verified 11/13/17 16:36 Exam Vital signs: Temperature 97.5 F 11/19/17 07:00 Pulse Rate 69 11/19/17 08:00 Respiratory Rate 13 11/19/17 08:47 Blood Pressure 153/65 H 11/19/17 07:00 Pulse Oximetry 87 L 11/19/17 09:55 - Constitutional no acute distress, morbidly obese - Routine HEENT Exam Eye: Present: EOMI, PERRL ENT: Present: mucous membranes moist - Routine Neck Exam Present: supple - Routine Respiratory Exam Present: decreased breath sounds. Absent: accessory muscle use, prolonged expiratory phase, wheezes - Routine Cardiovascular Exam Present: RRR - Routine Abdominal Exam Present: soft. Absent: guarding - Routine Extremities Exam Absent: cyanosis, clubbing - Routine Skin Exam Present: intact. Absent: cyanosis, rash - Routine Neurological Exam Present: alert, oriented X3 Results - Laboratory Findings CBC and BMP: 11/19/17 04:27 11/19/17 04:27 ABG ABG pH 7.384 (7.350-7.450) 11/19/17 05:30 ABG pCO2 57 MMHG (34.0-45.0) H 11/19/17 05:30 ABG pO2 69.6 MMHG (80.0-100.0) L 11/19/17 05:30 ABG O2 Saturation 92.9 % (95.0-98.0) L 11/19/17 05:30 Abnormal lab findings: Abnormal Labs 11/14/17 11/15/17 11/15/17 06:00 05:32 05:32 RBC 3.70 L Hgb 11.3 L D Hct 35.5 L RDW Std Deviation 56.2 H Immature Gran % (Auto) Neut % (Auto) 80.6 H Lymph % (Auto) 9.2 L Aiken % (Auto) Neut # (Auto) 8.1 H Lymph # (Auto) 0.9 L Aiken # (Auto) 0.9 H Abs Immat Gran (auto) 0.04 H Neutrophils % (Manual) Lymphocytes % (Manual) Monocytes % (Manual) Metamyelocytes % ABG pH ABG pCO2 ABG pO2 ABG HCO3 ABG Total CO2 ABG O2 Saturation ABG Base Excess Potassium Carbon Dioxide BUN 38.0 H Creatinine 1.6 H D BUN/Creatinine Ratio Glucose 225 H Hemoglobin A1c 8.8 H Calculated Osmolality 285 H NT-Pro-B Natriuret Pep Albumin 3.4 L Specimen Hemolysis Urine Protein Urine Occult Blood Ur Leukocyte Esterase Urine RBC Urine WBC Urine Bacteria 11/15/17 11/15/17 11/15/17 13:52 16:04 21:04 RBC Hgb Hct RDW Std Deviation Immature Gran % (Auto) Neut % (Auto) Lymph % (Auto) Aiken % (Auto) Neut # (Auto) Lymph # (Auto) Aiken # (Auto) Abs Immat Gran (auto) Neutrophils % (Manual) Lymphocytes % (Manual) Monocytes % (Manual) Metamyelocytes % ABG pH ABG pCO2 ABG pO2 ABG HCO3 ABG Total CO2 ABG O2 Saturation ABG Base Excess Potassium 5.1 H Carbon Dioxide BUN 39.0 H 39.0 H Creatinine 1.4 H D BUN/Creatinine Ratio 28 H 36 H Glucose 274 H 261 H Hemoglobin A1c Calculated Osmolality 290 H 287 H NT-Pro-B Natriuret Pep Albumin Specimen Hemolysis 27 H Urine Protein Trace A Urine Occult Blood 2+ A Ur Leukocyte Esterase 3+ A Urine RBC 5-10 H Urine WBC 50-200 H Urine Bacteria 2+ H 11/16/17 11/16/17 11/16/17 04:18 04:18 09:59 RBC 3.75 L Hgb 11.6 L Hct 35.4 L RDW Std Deviation 56.0 H Immature Gran % (Auto) 0.9 H Neut % (Auto) 77.9 H Lymph % (Auto) 10.7 L Aiken % (Auto) Neut # (Auto) 8.4 H Lymph # (Auto) Aiken # (Auto) 0.9 H Abs Immat Gran (auto) 0.10 H Neutrophils % (Manual) Lymphocytes % (Manual) Monocytes % (Manual) Metamyelocytes % ABG pH ABG pCO2 ABG pO2 ABG HCO3 ABG Total CO2 ABG O2 Saturation ABG Base Excess Potassium 5.5 H Carbon Dioxide BUN 41.0 H 40.0 H Creatinine BUN/Creatinine Ratio 37 H 33 H Glucose 182 H 169 H Hemoglobin A1c Calculated Osmolality 286 H 287 H NT-Pro-B Natriuret Pep Albumin 3.4 L Specimen Hemolysis 44 H Urine Protein Urine Occult Blood Ur Leukocyte Esterase Urine RBC Urine WBC Urine Bacteria 11/16/17 11/17/17 11/17/17 17:01 04:09 04:11 RBC 3.54 L Hgb 10.7 L Hct 34.5 L RDW Std Deviation 57.0 H Immature Gran % (Auto) 0.6 H Neut % (Auto) 75.6 H Lymph % (Auto) 12.5 L Aiken % (Auto) 10.4 H Neut # (Auto) Lymph # (Auto) Aiken # (Auto) 0.9 H Abs Immat Gran (auto) 0.05 H Neutrophils % (Manual) Lymphocytes % (Manual) Monocytes % (Manual) Metamyelocytes % ABG pH 7.349 L ABG pCO2 49 H ABG pO2 70.5 L ABG HCO3 27.1 H ABG Total CO2 28.6 H ABG O2 Saturation 92.8 L ABG Base Excess Potassium Carbon Dioxide BUN Creatinine BUN/Creatinine Ratio Glucose Hemoglobin A1c Calculated Osmolality NT-Pro-B Natriuret Pep 2690 H Albumin Specimen Hemolysis Urine Protein Urine Occult Blood Ur Leukocyte Esterase Urine RBC Urine WBC Urine Bacteria 11/17/17 11/18/17 11/18/17 04:11 04:03 04:03 RBC 3.67 L Hgb 11.0 L Hct 35.5 L RDW Std Deviation 55.6 H Immature Gran % (Auto) 0.9 H Neut % (Auto) 71.9 H Lymph % (Auto) 13.3 L Aiken % (Auto) 12.9 H Neut # (Auto) Lymph # (Auto) Aiken # (Auto) 1.0 H Abs Immat Gran (auto) 0.07 H Neutrophils % (Manual) Lymphocytes % (Manual) Monocytes % (Manual) Metamyelocytes % ABG pH ABG pCO2 ABG pO2 ABG HCO3 ABG Total CO2 ABG O2 Saturation ABG Base Excess Potassium Carbon Dioxide 33 H BUN 38.0 H 38.0 H Creatinine BUN/Creatinine Ratio 35 H 38 H Glucose 168 H 137 H Hemoglobin A1c Calculated Osmolality 284 H 288 H NT-Pro-B Natriuret Pep Albumin 3.4 L Specimen Hemolysis Urine Protein Urine Occult Blood Ur Leukocyte Esterase Urine RBC Urine WBC Urine Bacteria 11/18/17 11/19/17 11/19/17 12:17 04:27 04:27 RBC 3.70 L Hgb 11.1 L Hct 35.7 L RDW Std Deviation 56.2 H Immature Gran % (Auto) Neut % (Auto) Lymph % (Auto) Aiken % (Auto) Neut # (Auto) Lymph # (Auto) Aiken # (Auto) Abs Immat Gran (auto) Neutrophils % (Manual) 67.0 H Lymphocytes % (Manual) 16.0 L Monocytes % (Manual) 10.0 H Metamyelocytes % 1.0 H ABG pH 7.311 L ABG pCO2 65 H* ABG pO2 ABG HCO3 32.8 H ABG Total CO2 34.8 H ABG O2 Saturation ABG Base Excess 4.9 H Potassium Carbon Dioxide 34 H BUN 36.0 H Creatinine BUN/Creatinine Ratio 36 H Glucose 122 H Hemoglobin A1c Calculated Osmolality 286 H NT-Pro-B Natriuret Pep Albumin 3.4 L Specimen Hemolysis Urine Protein Urine Occult Blood Ur Leukocyte Esterase Urine RBC Urine WBC Urine Bacteria 11/19/17 05:30 RBC Hgb Hct RDW Std Deviation Immature Gran % (Auto) Neut % (Auto) Lymph % (Auto) Aiken % (Auto) Neut # (Auto) Lymph # (Auto) Aiken # (Auto) Abs Immat Gran (auto) Neutrophils % (Manual) Lymphocytes % (Manual) Monocytes % (Manual) Metamyelocytes % ABG pH ABG pCO2 57 H ABG pO2 69.6 L ABG HCO3 34.0 H ABG Total CO2 35.8 H ABG O2 Saturation 92.9 L ABG Base Excess 7.4 H Potassium Carbon Dioxide BUN Creatinine BUN/Creatinine Ratio Glucose Hemoglobin A1c Calculated Osmolality NT-Pro-B Natriuret Pep Albumin Specimen Hemolysis Urine Protein Urine Occult Blood Ur Leukocyte Esterase Urine RBC Urine WBC Urine Bacteria - Diagnostic Findings Chest x-ray: report reviewed, image reviewed CT scan - chest: report reviewed, image reviewed U/S of Legs: negative Assessment and Plan (1) Acute and chronic respiratory failure with hypercapnia Status: Acute Assessment and plan: On the basis of morbid obesity and restrictive lung disease, with chronic hypercapnic failure, this paitent would benefit from home vent to mask ventilation. I recommend starting home vent to mask at night and as needed to control her hypercapnia. Use of home vent to mask will reduce the risk of worsening respiratory status that would lead to hospitalization and . Current Visit: Yes (2) Restrictive lung disease Status: Acute Assessment and plan: Due to morbid obesity and causing significant hypoventilation. She will require O2 by nc to keep sats >90% while off NIPPV. check ABG on nasal cannula. Current Visit: Yes (3) Morbid obesity with BMI of 60.0-69.9, adult Status: Acute Current Visit: Yes - Time Spent With Patient Total time spent is greater than 50% in coordination of care (as documented) at patient's floor/unit and/or counseling patient: 25 - 35 minutes
--- NOTE | 2017-11-19 14:29 | Progress Note ---
- Date 11/19/17 Objective Vital signs: Temperature 97.5 F 11/19/17 07:00 Pulse Rate 69 11/19/17 08:00 Respiratory Rate 13 11/19/17 08:47 Blood Pressure 153/65 H 11/19/17 07:00 Pulse Oximetry 87 L 11/19/17 09:55 Height/Weight/BMI: Height 4 ft 11 in Weight 154.1 kg Body Mass Index 69.7 Results - Labs CBC & Chem 7: 11/19/17 04:27 11/19/17 04:27 Microbiology Results: Microbiology 11/15/17 16:04 Urine, Voided (Cc/notcc) Urine Culture - Final No Growth After 2 Days - ABG Interpretation ABG results: 11/18/17 11/19/17 12:17 05:30 ABG pH 7.311 L 7.384 ABG pCO2 65 H* 57 H ABG pO2 85.3 69.6 L ABG HCO3 32.8 H 34.0 H ABG Total CO2 34.8 H 35.8 H ABG O2 Saturation 95.0 92.9 L ABG Base Excess 4.9 H 7.4 H Assessment and Plan (1) Sepsis Problem details: severe as indicated by tachypnea, leukocytosis, elevated lactate 3.3 Current visit: No Status: Acute (2) Pyelonephritis Current visit: Yes Status: Acute (3) Temporal arteritis Current visit: No Status: Chronic (4) Fibromyalgia Current visit: No Status: Chronic (5) Chronic steroid use Current visit: No Status: Chronic (6) Morbid obesity Current visit: No Status: Chronic (7) Diabetes mellitus type 2 in obese Current visit: No Status: Chronic (8) Presence of cardiac pacemaker Current visit: No Status: Chronic (9) GERD (gastroesophageal reflux disease) Current visit: No Status: Chronic (10) Chronic pain syndrome Current visit: No Status: Chronic Assessment and Plan: Severe Sepsis 2/2 Pyelonephritis-Resolved -Flank pain, CT abd showed stranding on admission. -Renal ultrasound unremarkable -Leukocytosis resolved. -UA culture from 11/13 prior to admission revealed Enterobacter cloacae sensitive to cefepime and cipro -Received 3 days of Cefepime, now on cipro D3 Acute on Chronic Hypoxic Hypercapnic Resp. failure -Initially thought maybe d/t fluid overload but diuretic therapy hasn't helped -Now requiring bipap, this is likely from obesity hypoventilation syndrome -VQ scan-low prob of PE, LE doppler neg, -BNP moderately elevated at ~2500 -Switch IV lasix to PO lasix -Will consult pulm DARREL-Resolved -Cr peaked at 1.6, now back to normal -Renal ultrasound unremarkable. Continue to monitor. DM -Blood sugars elevated but oral intake remains decreased -Continue decreased dose of Novolog-->14U with meals (28U with breakfast at home , 30U BIDLS at home). Continue sliding scale and monitor closely. -Continue decreased dose of Detemir-->25U BID (45U at home). HTN -Continue home diltiazem, lisinopril - well controlled. Hypothyroid -Cont. home levo Afib -Unclear hx, has pacemaker but no anti-coagulation? -Continue to monitor closely on telemetry. Temporal Arteritis -Cont. home prednisone 20mg -Will not stress dose at this time Chest pain, atypical and pleuritic. -Suspect related to GI. -PPI for GERD. -Tums and maalox PRN. -EKGs stable, Troponin <0.012. Continue to monitor closely on telemetry. Ppx -Heparin - Physician Narrative Narrative: Date: 11/19/17 Time: 1400 Hospital Course Summary Disclaimer: The visit summary below is not to be considered part of the above Progress Note. Hospital Course: 11/15/17 Pt overall improving with IV cefepime for pyelonephritis, Cr increased today, will do work up with kidney US and UA and give fluids and recheck labs. If pt stable and continues to improve, will consider switching to PO abx tomorrow. 11/16/17 Making slow gains. Leukocytosis resolved. Electrolytes stable. Persistent hyperglycemia though oral intake is decreased. Continue decreased home insulins with sliding scale and continue to monitor closely. UA culture from 11/13 prior to admission revealed Enterobacter cloacae. Repeat UA culture pending. Continue Cefepime IV and plan to discharge home on cipro. Anticipate discharge in near future, hopefully tomorrow 11/17/17. 11/17/17 Pt requiring more O2, cxr shows pulm edema, will do iv lasix. Changed IV abx to PO. Monito 11/18/[address] still not at baseline, hypercapnia likely 2/2 hypoventilation and hypoxia likely 2/2 to fluids, will do bipap and diuretics and monitor. 11/19/17 Pt still having acute on chronic hypercapnic hypoxic resp failure, likely 2/2 obesity hypoventilation syndrome. Now using bipap, diuretics don't seem to be helping, will consult pulm.
[2017-11-19] MEDS: INSULIN ASPART 100unit/ml INJECTION SQ PRN ×2 (17:27→21:34)
[2017-11-19] MEDS: ALBUTEROL 2.5mg/3ml (0.083%) NEB AEROSOL SCH (19:43)
[2017-11-19] MEDS: DiphenhydrAMINE 25 MG CAPSULE PO SCH (21:07)
[2017-11-20] MEDS: ALBUTEROL 2.5mg/3ml (0.083%) NEB AEROSOL SCH ×7 (00:11→23:44)
[2017-11-20] MEDS: TRAMADOL 50 MG TABLET PO SCH ×3 (00:34→22:32)
[2017-11-20] MEDS: HEPARIN SUB-Q 5,000units/0.5ml INJECTION SQ SCH ×3 (01:01→17:31)
[2017-11-20] MEDS: CIPROFLOXACIN 500 MG TABLET PO SCH ×3 (01:02→22:33)
[2017-11-20] MEDS: ACETAMINOPHEN 325 MG TABLET PO PRN ×2 (02:18→19:51)
[2017-11-20] MEDS ORDERED: FALL RISK - PHARMACY CONSULT MC ONE (06:34)
[2017-11-20] MEDS: LEVOTHYROXINE 150 MCG TABLET PO SCH (06:42)
[2017-11-20] MEDS: PANTOPRAZOLE 20 MG TABLET PO SCH (06:43)
[2017-11-20] MEDS: SUCRALFATE 1 GM TABLET PO SCH ×3 (06:43→17:31)
[2017-11-20] MEDS: INSULIN ASPART 100unit/ml INJECTION SQ SCH ×3 (08:53→17:58)
[2017-11-20] MEDS: PredniSONE 20 MG TABLET PO SCH (09:35)
[2017-11-20] MEDS: LISINOPRIL 10 MG TABLET PO SCH (09:36)
[2017-11-20] MEDS: FUROSEMIDE 40 MG TABLET PO SCH (09:36)
[2017-11-20] MEDS: MULTI-VITAMIN + MINERAL TABLET PO SCH (09:36)
[2017-11-20] MEDS: MAGNESIUM OXIDE 400 MG TABLET PO SCH (09:36)
[2017-11-20] MEDS: INSULIN GLARGINE 100unit/ml INJECTION SQ SCH ×2 (09:37→21:04)
[2017-11-20] MEDS: MULTI-VIT + MINERAL (Opti-gen) TABLET PO SCH ×2 (09:37→21:05)
[2017-11-20] MEDS: POLYETHYL GLYCOL 3350 17gm PACKET PO SCH (09:37)
[2017-11-20] MEDS: Oxycodone *IR* 5 MG TABLET PO PRN ×2 (09:54→16:36)
[2017-11-20] MEDS: INSULIN ASPART 100unit/ml INJECTION SQ PRN ×2 (12:15→21:04)
--- NOTE | 2017-11-20 13:17 | XRay Report ---
Indication: sob PROCEDURE: XR chest 1V: Encounter: Initial Comparison: November 19, 2017 Findings: Persistent hazy bilateral airspace infiltrates with some improvement in the right base. Left lung is unchanged. No pneumothorax. Small effusions. Cardiac silhouette remains enlarged. Pulmonary vascularity is indistinct. Impression: Improving aeration of the right lower lobe. .
[2017-11-20] MEDS ORDERED: BUMETANIDE DRIP IV SCH (14:45)
[2017-11-20] MEDS ORDERED: CONTAINER EMPTY IV SCH (14:45)
--- NOTE | 2017-11-20 14:45 | Progress Note ---
- Date 11/20/17 Subjective: Pt reports breathing is a little worse, denies any cp, n/v/d, f/c. Pt doesn't have much of an appetite. Objective Vital signs: Temperature 97.2 F 11/20/17 07:00 Pulse Rate 69 11/20/17 08:00 Respiratory Rate 22 11/20/17 12:18 Blood Pressure 133/66 11/20/17 07:00 Pulse Oximetry 91 11/20/17 10:56 Height/Weight/BMI: Height 4 ft 11 in Weight 151 kg Body Mass Index 69.7 - Constitutional Present: no acute distress - Routine HEENT Exam Head: Present: normocephalic, atraumatic Eye: Present: EOMI - Routine Respiratory Exam Present: decreased breath sounds, crackles - Routine Cardiovascular Exam Present: RRR, no murmur - Routine Abdominal Exam Present: soft, non distended, non tender - Routine Extremities Exam Present: edema. Absent: cyanosis, clubbing - Routine Skin Exam Present: intact, dry. Absent: erythema - Routine Neurological Exam Present: alert, oriented X3 Results - Labs CBC & Chem 7: 11/19/17 04:27 11/20/17 04:25 Microbiology Results: Microbiology 11/15/17 16:04 Urine, Voided (Cc/notcc) Urine Culture - Final No Growth After 2 Days - ABG Interpretation ABG results: 11/19/17 11/19/17 05:30 17:46 ABG pH 7.384 7.403 ABG pCO2 57 H 50 H ABG pO2 69.6 L 39.9 L* ABG HCO3 34.0 H 31.4 H ABG Total CO2 35.8 H 32.9 H ABG O2 Saturation 92.9 L 74.0 L ABG Base Excess 7.4 H 5.5 H Assessment and Plan (1) Sepsis Problem details: severe as indicated by tachypnea, leukocytosis, elevated lactate 3.3 Current visit: No Status: Acute (2) Pyelonephritis Current visit: Yes Status: Acute (3) Temporal arteritis Current visit: No Status: Chronic (4) Fibromyalgia Current visit: No Status: Chronic (5) Chronic steroid use Current visit: No Status: Chronic (6) Morbid obesity Current visit: No Status: Chronic (7) Diabetes mellitus type 2 in obese Current visit: No Status: Chronic (8) Presence of cardiac pacemaker Current visit: No Status: Chronic (9) GERD (gastroesophageal reflux disease) Current visit: No Status: Chronic (10) Chronic pain syndrome Current visit: No Status: Chronic Assessment and Plan: Severe Sepsis 2/2 Pyelonephritis-Resolved -Flank pain, CT abd showed stranding on admission. -Renal ultrasound unremarkable -UA culture from 11/13 prior to admission revealed Enterobacter cloacae sensitive to cefepime and cipro -Received 3 days of Cefepime, now on cipro D4 Acute on Chronic Hypoxic Hypercapnic Resp. failure -Initially thought maybe d/t fluid overload but diuretic therapy hasn't helped -Unlikely pna as pt has no sx's and has procal that is low, CRP pending and no clear infiltrate -Now requiring bipap, likely obesity hypoventilation syndrome contributing -VQ scan-low prob of PE, LE doppler neg -BNP elevated at ~2500, order echo -Last echo showed EF 57% -Pulm consulted -CXR today again shows haziness, unclear how much this is pulm edema-->Transfer pt to ICU and start bumex drip DARREL-Resolved -Cr peaked at 1.6, now back to normal -Renal ultrasound unremarkable. Continue to monitor. DM -Blood sugars elevated but oral intake remains decreased -Continue decreased dose of Novolog-->14U with meals (28U with breakfast at home , 30U BIDLS at home). Continue sliding scale and monitor closely. -Continue decreased dose of Detemir-->25U BID (45U at home). HTN -Continue home diltiazem, lisinopril - well controlled. Hypothyroid -Cont. home levo Afib -Unclear hx, has pacemaker but no anti-coagulation? -Continue to monitor closely on telemetry. Temporal Arteritis -Cont. home prednisone 20mg -Will not stress dose at this time Chest pain, atypical and pleuritic. -Suspect related to GI. -PPI for GERD. -Tums and maalox PRN. -EKGs stable, Troponin <0.012. Continue to monitor closely on telemetry. Ppx -Heparin - Physician Narrative Narrative: Date: 11/20/17 Time: 1425 Hospital Course Summary Disclaimer: The visit summary below is not to be considered part of the above Progress Note. Hospital Course: 11/15/17 Pt overall improving with IV cefepime for pyelonephritis, Cr increased today, will do work up with kidney US and UA and give fluids and recheck labs. If pt stable and continues to improve, will consider switching to PO abx tomorrow. 11/16/17 Making slow gains. Leukocytosis resolved. Electrolytes stable. Persistent hyperglycemia though oral intake is decreased. Continue decreased home insulins with sliding scale and continue to monitor closely. UA culture from 11/13 prior to admission revealed Enterobacter cloacae. Repeat UA culture pending. Continue Cefepime IV and plan to discharge home on cipro. Anticipate discharge in near future, hopefully tomorrow 11/17/17. 11/17/17 Pt requiring more O2, cxr shows pulm edema, will do iv lasix. Changed IV abx to PO. Monito 11/18/[address] still not at baseline, hypercapnia likely 2/2 hypoventilation and hypoxia likely 2/2 to fluids, will do bipap and diuretics and monitor. 11/19/17 Pt still having acute on chronic hypercapnic hypoxic resp failure, likely 2/2 obesity hypoventilation syndrome. Now using bipap, diuretics don't seem to be helping, will consult pulm. 11/20/17 Resp distress is stable possibly a little worse, CXR still shows diffuse haziness. Will transfer pt to icu and start bumex drip to try to figure out if this is pulm edema. Pt has complex lung picture and it is unclear how much of it is her chronic issues getting worse and how much is acute pathology. Will monitor closely.
[2017-11-20] MEDS: BUMETANIDE DRIP 12.5 MG in CONTAINER,EMPTY 50 ML IV SCH (16:28)
--- NOTE | 2017-11-20 16:35 | Pulmonology Progress Note ---
Subjective Interval history: awake, on continuous BIPAP. still cannot remove bipap due to shortness of breath and hypoxemia. ) Exam Vital signs: Temperature 97.2 F 11/20/17 07:00 Pulse Rate 69 11/20/17 08:00 Respiratory Rate 14 11/20/17 16:05 Blood Pressure 133/66 11/20/17 07:00 Pulse Oximetry 97 11/20/17 16:19 Inpatient Medications: Generic Name Dose Route Start Last Admin Trade Name Freq PRN Reason Stop Dose Admin Acetaminophen 650 mg 11/14/17 04:25 11/20/17 02:18 Tylenol PO 650 mg Q4H PRN Administration Discomfort Al Hydroxide/Mg Hydroxide 30 ml 11/16/17 11:57 Maalox Plus PO Q4H PRN Indigestion Albuterol Sulfate 2.5 mg 11/19/17 18:45 11/20/17 16:05 Proventil Neb (0.083%) AEROSOL 2.5 mg Q4H CARMEL Administration Calcium Carbonate 750 mg 11/16/17 11:57 11/18/17 10:00 Tums Extra Strength PO 750 mg PRN PRN Administration Dyspepsia Capsaicin 1 applic 11/18/17 10:57 11/20/17 09:38 Trixaicin TOP 1 applic BID CARMEL Administration Cholecalciferol 1,000 unit 11/15/17 09:00 11/20/17 09:36 Vit. D-3 PO 1,000 unit TID CARMEL Administration Ciprofloxacin 500 mg 11/17/17 23:00 11/20/17 06:43 Cipro 500 Mg PO 500 mg 0700,2300 CARMEL Administration Dextrose 0 ml 11/14/17 04:19 D50%W IVP PRN PRN Hypoglycemia Diltiazem HCl 240 mg 11/14/17 21:00 11/20/17 09:36 Cardizem Cd 240 Mg PO 240 mg BID CARMEL Administration Diphenhydramine HCl 25 mg 11/14/17 21:00 11/19/17 21:07 Benadryl PO 25 mg HS CARMEL Administration Docusate Sodium 200 mg 11/14/17 16:17 Colace PO DAILY PRN Constipation Glucose 37.5 gm 11/14/17 04:19 Glutose 15 PO PRN PRN Hypoglycemia Guaifenesin/Dextromethorphan 10 ml 11/14/17 04:25 Robitussin Dm PO Q4H PRN Cough /Congestion Heparin Sodium (Porcine) 5,000 units 11/14/17 09:00 11/20/17 09:36 Heparin Sq SQ 5,000 units Q8HR CARMEL Administration Bumetanide 12.5 mg/ IV 50 mls @ 2 mls/hr 11/20/17 15:15 Solution IV Q24H CARMEL 0.5 MG/HR Insulin Aspart 2 - 8 unit 11/14/17 04:19 11/20/17 12:15 Novolog SQ 5 unit SS PRN Administration Hyperglycemia Protocol Insulin Aspart 14 unit 11/19/17 14:15 11/20/17 12:10 Novolog SQ Not Given TIDWM CARMEL Insulin Glargine 25 unit 11/19/17 14:05 11/20/17 09:37 Lantus SQ 25 unit BID CARMEL Administration Levothyroxine Sodium 150 mcg 11/15/17 06:30 11/20/17 06:42 Synthroid PO 150 mcg ACB CARMEL Administration Lisinopril 10 mg 11/15/17 09:00 11/20/17 09:36 Prinivil PO 10 mg DAILY CARMEL Administration Magnesium Oxide 400 mg 11/15/17 09:00 11/20/17 09:36 Magox PO 400 mg DAILY CARMEL Administration Multivitamins/Minerals 1 tab 11/15/17 09:00 11/20/17 09:36 Therapeutic - M PO 1 tab DAILY CARMEL Administration Multivitamins/Minerals 1 tab 11/15/17 09:00 11/20/17 09:37 Vision PO 1 tab BID CARMEL Administration Nitroglycerin 0.4 mg 11/16/17 04:10 11/16/17 04:08 Nitrostat SL 0.4 mg Q5MIN3 PRN Administration Chest pain Oxycodone HCl 10 mg 11/18/17 10:53 11/20/17 09:54 Roxicodone *Ir* PO 10 mg Q4H PRN Administration Pain Pantoprazole Sodium 40 mg 11/20/17 06:30 11/20/17 06:43 Protonix PO 40 mg ACB CARMEL Administration Polyethylene Glycol 17 gm 11/15/17 09:00 11/20/17 09:37 Miralax PO 17 gm DAILY CARMEL Administration Prednisone 20 mg 11/15/17 08:00 11/20/17 09:35 Deltasone 20 Mg PO 20 mg WB CARMEL Administration Sodium Chloride 10 - 80 ml 11/14/17 04:19 11/17/17 20:56 Iv Flush IV 10 ml PRN PRN Administration Flushing Sucralfate 1 gm 11/18/17 17:00 11/20/17 12:14 Carafate PO 1 gm ACHS CARMEL Administration Tizanidine HCl 4 mg 11/14/17 21:00 11/20/17 01:01 Zanaflex PO 4 mg HS CARMEL Administration Tramadol HCl 50 mg 11/14/17 21:00 11/20/17 01:02 Ultram PO 50 mg HS CARMEL Administration Discontinued Medications Generic Name Dose Route Start Last Admin Trade Name Freq PRN Reason Stop Dose Admin Albuterol Sulfate 2.5 mg 11/16/17 02:26 11/16/17 16:09 Proventil Neb (0.083%) AEROSOL 2.5 mg Q4H PRN Administration Albuterol/Ipratropium 3 ml 11/17/17 14:20 Duoneb AEROSOL Q6H PRN Ciprofloxacin 500 mg 11/17/17 14:00 11/17/17 15:47 Cipro 500 Mg PO Not Given Q12HR CARMEL Furosemide 40 mg 11/14/17 21:00 11/14/17 21:00 Lasix 40 Mg Tab PO 40 mg BID CARMEL Administration Furosemide 40 mg 11/15/17 09:00 11/20/17 09:36 Lasix 40 Mg Tab PO 40 mg [id number] CARMEL Administration Furosemide 40 mg 11/16/17 21:00 11/18/17 09:20 Lasix 40 Mg/4 Ml IVP 40 mg Q12HR CARMEL Administration Furosemide 40 mg 11/19/17 09:00 11/19/17 10:14 Lasix 40 Mg/4 Ml IVP 40 mg Q12HR CARMEL Administration Guaifenesin 400 mg 11/17/17 14:20 Robitussin Liq PO Q4H PRN Cough /Congestion Heparin Sodium (Beef Lung) 9,400 unit 11/16/17 04:10 Heparin Bolus 60 unit/kg (9400 unit) 11/16/17 04:11 IV O ONE Heparin Sodium (Beef Lung) 9,400 unit 11/16/17 04:10 11/16/17 04:10 Heparin Bolus 60 unit/kg (9400 unit) 11/16/17 04:11 9,400 unit IV Administration O ONE Hydromorphone HCl 0.5 mg 11/14/17 01:28 11/14/17 03:29 Dilaudid IVP 11/14/17 01:29 0.5 mg O ONE Administration Cefepime HCl 1 gm/ Sodium 100 mls @ 200 mls/hr 11/14/17 04:30 11/15/17 10:55 Chloride IV Infused Q6H CARMEL Infusion Sodium Chloride 500 mls @ 250 mls/hr 11/15/17 10:00 11/15/17 13:28 Normal Saline IV 11/15/17 12:00 Infused .Q2H CARMEL Infusion Cefepime HCl 1 gm/ Sodium 100 mls @ 200 mls/hr 11/15/17 18:00 11/17/17 11:25 Chloride IV Infused Q8H CARMEL Infusion Sodium Chloride 500 mls @ 250 mls/hr 11/15/17 18:00 11/15/17 19:58 Normal Saline IV 11/15/17 19:59 Infused .Q2H ONE Infusion Heparin Sodium (Porcine) 20,000 unit in 500 mls @ 21 mls/hr 11/16/17 04:10 04:20 Heparin Drip IV Infused .[id number] CARMEL Titration Protocol Bumetanide 12.5 mg/ IV 100 mls @ 4 mls/hr 11/20/17 14:45 Solution IV Q24H CARMEL 0.5 MG/HR Insulin Aspart 5 unit 11/14/17 08:00 11/14/17 12:57 Novolog SQ 5 unit TIDWM CARMEL Administration Insulin Aspart 18 unit 11/14/17 16:28 11/19/17 13:26 Novolog SQ Not Given TIDWM CARMEL Insulin Glargine 10 unit 11/14/17 09:00 11/14/17 10:09 Lantus SQ 10 unit BID CARMEL Administration Insulin Glargine 30 unit 11/14/17 16:30 11/19/17 10:25 Lantus SQ 30 unit BID CARMEL Administration Ketorolac Tromethamine 30 mg 11/14/17 01:28 11/14/17 03:26 Toradol Inj IVP 11/14/17 01:29 30 mg O ONE Administration Metoprolol Tartrate 5 mg 11/16/17 04:08 11/16/17 04:10 Lopressor IVP 06/04/18 04:09 5 mg O ONE Administration Morphine Sulfate 2 - 4 mg 11/14/17 04:19 11/15/17 06:45 Morphine Sulfate Inj IVP 4 mg Q5M PRN Administration Chest pain Morphine Sulfate 2 mg 11/16/17 02:51 11/16/17 14:30 Morphine Sulf 2 Mg Inj IVP 2 mg Q2HR PRN Administration Chest pain Ondansetron HCl 4 mg 11/14/17 04:19 Zofran IVP Q6H PRN Nausea &/or vomiting Oxycodone HCl 5 mg 11/15/17 11:30 11/18/17 04:52 Roxicodone *Ir* PO 5 mg Q6H PRN Administration Pain Pantoprazole Sodium 40 mg 11/14/17 09:00 11/14/17 10:09 Protonix Iv IVP 40 mg DAILY CARMEL Administration Pantoprazole Sodium 20 mg 11/16/17 17:00 11/19/17 05:36 Protonix PO Not Given ACBID [facility] Pharmacy Consult each 11/20/17 06:34 Pharmacy Consult - Fall Risk 11/20/17 06:35 ONE TIME ONE Polyethylene Glycol 17 gm 11/14/17 09:00 11/19/17 10:15 Miralax PO Not Given DAILY [facility] Potassium Chloride 10 meq 11/15/17 08:00 11/15/17 09:03 Micro-K 10 Meq Capsule PO 10 meq WB CARMEL Administration Prochlorperazine Edisylate 10 mg 11/14/17 01:28 11/14/17 03:28 Compazine Iv IVP 11/14/17 01:29 10 mg O ONE Administration Sodium Chloride 10 - 80 ml 11/14/17 01:26 11/14/17 05:52 Iv Flush IVF 10 ml PRN PRN Administration Flushing Sucralfate 1 gm 11/14/17 17:00 11/18/17 14:08 Carafate PO 1 gm QID CARMEL Administration Tramadol HCl 50 mg 11/14/17 12:50 11/14/17 12:57 Ultram PO 11/14/17 12:51 50 mg O ONE Administration - Constitutional no acute distress, morbidly obese - Routine HEENT Exam Head: Present: normocephalic, cushingoid faces - Routine Neck Exam Present: supple, full ROM - Routine Respiratory Exam Present: decreased breath sounds, prolonged expiratory phase - Routine Cardiovascular Exam Present: RRR - Routine Abdominal Exam Present: soft - Urinary Catheter Management Urethral Cath placed during this visit: yes Insertion date: 11/18/17 Insertion time: 09:50 Results - Laboratory Findings Laboratory: Laboratory Results - last 48 hr 11/18/17 11/18/17 11/18/17 11:46 17:13 20:54 WBC RBC Hgb Hct MCV MCH MCHC RDW Std Deviation Plt Count MPV Immature Gran % (Auto) Neut % (Auto) Lymph % (Auto) Scott % (Auto) Eos % (Auto) Baso % (Auto) Neut # (Auto) Lymph # (Auto) Scott # (Auto) Eos # (Auto) Baso # (Auto) Abs Immat Gran (auto) Neutrophils % (Manual) Band Neutrophils % Lymphocytes % (Manual) Monocytes % (Manual) Eosinophils % (Manual) Basophils % (Manual) Metamyelocytes % Neutrophils # (Manual) Band Neutrophils # Lymphocytes # (Manual) Monocytes # (Manual) Eosinophils # (Manual) Basophils # (Manual) Metamyelocytes # Nucleated RBCs Anisocytosis RBC Morph Comment Sample Site Alveolar Air PO2 ABG pH ABG pCO2 ABG pO2 ABG HCO3 ABG Total CO2 ABG O2 Saturation ABG Base Excess Modified Manuel Test A-a Gradient a/A Ratio O2 Delivery Method Vent Rate FiO2 FiO2 (liters per min) PEEP Inspiratory Pressure Turbidity Sodium Potassium Chloride Carbon Dioxide Anion Gap BUN Creatinine GFR Calculation BUN/Creatinine Ratio Glucose Glucometer 222 256 226 Calculated Osmolality Calcium Phosphorus Magnesium Total Bilirubin Icterus Index AST ALT Alkaline Phosphatase NT-Pro-B Natriuret Pep Total Protein Albumin Globulin Albumin/Globulin Ratio Specimen Hemolysis 11/19/17 11/19/17 11/19/17 04:27 04:27 05:30 WBC 8.3 RBC 3.70 L Hgb 11.1 L Hct 35.7 L MCV 96.5 MCH 30.0 MCHC 31.1 RDW Std Deviation 56.2 H Plt Count 254 MPV 9.8 Immature Gran % (Auto) Not performed Neut % (Auto) Not performed Lymph % (Auto) Not performed Scott % (Auto) Not performed Eos % (Auto) Not performed Baso % (Auto) Not performed Neut # (Auto) Not performed Lymph # (Auto) Not performed Scott # (Auto) Not performed Eos # (Auto) Not performed Baso # (Auto) Not performed Abs Immat Gran (auto) Not performed Neutrophils % (Manual) 67.0 H Band Neutrophils % 3.0 Lymphocytes % (Manual) 16.0 L Monocytes % (Manual) 10.0 H Eosinophils % (Manual) 2.0 Basophils % (Manual) 1.0 Metamyelocytes % 1.0 H Neutrophils # (Manual) 5.6 Band Neutrophils # 0.2 Lymphocytes # (Manual) 1.3 Monocytes # (Manual) 0.8 Eosinophils # (Manual) 0.2 Basophils # (Manual) 0.1 Metamyelocytes # 0.1 Nucleated RBCs 1 Anisocytosis 1+ RBC Morph Comment Abnormal Sample Site R radial Alveolar Air PO2 174.1 ABG pH 7.384 ABG pCO2 57 H ABG pO2 69.6 L ABG HCO3 34.0 H ABG Total CO2 35.8 H ABG O2 Saturation 92.9 L ABG Base Excess 7.4 H Modified Manuel Test Positive A-a Gradient 104.5 a/A Ratio 40.0 O2 Delivery Method Bipap Vent Rate 15 FiO2 35 FiO2 (liters per min) PEEP 5 Inspiratory Pressure 16 Turbidity < 20 Sodium 144 Potassium 4.5 Chloride 101 Carbon Dioxide 34 H Anion Gap 9 BUN 36.0 H Creatinine 1.0 GFR Calculation 55 BUN/Creatinine Ratio 36 H Glucose 122 H Glucometer Calculated Osmolality 286 H Calcium 9.4 Phosphorus 2.8 Magnesium 2.1 Total Bilirubin Icterus Index < 2 AST ALT Alkaline Phosphatase NT-Pro-B Natriuret Pep Total Protein Albumin 3.4 L Globulin Albumin/Globulin Ratio Specimen Hemolysis < 15 11/19/17 11/19/17 11/19/17 06:01 11:47 17:07 WBC RBC Hgb Hct MCV MCH MCHC RDW Std Deviation Plt Count MPV Immature Gran % (Auto) Neut % (Auto) Lymph % (Auto) Scott % (Auto) Eos % (Auto) Baso % (Auto) Neut # (Auto) Lymph # (Auto) Scott # (Auto) Eos # (Auto) Baso # (Auto) Abs Immat Gran (auto) Neutrophils % (Manual) Band Neutrophils % Lymphocytes % (Manual) Monocytes % (Manual) Eosinophils % (Manual) Basophils % (Manual) Metamyelocytes % Neutrophils # (Manual) Band Neutrophils # Lymphocytes # (Manual) Monocytes # (Manual) Eosinophils # (Manual) Basophils # (Manual) Metamyelocytes # Nucleated RBCs Anisocytosis RBC Morph Comment Sample Site Alveolar Air PO2 ABG pH ABG pCO2 ABG pO2 ABG HCO3 ABG Total CO2 ABG O2 Saturation ABG Base Excess Modified Manuel Test A-a Gradient a/A Ratio O2 Delivery Method Vent Rate FiO2 FiO2 (liters per min) PEEP Inspiratory Pressure Turbidity Sodium Potassium Chloride Carbon Dioxide Anion Gap BUN Creatinine GFR Calculation BUN/Creatinine Ratio Glucose Glucometer 131 144 243 Calculated Osmolality Calcium Phosphorus Magnesium Total Bilirubin Icterus Index AST ALT Alkaline Phosphatase NT-Pro-B Natriuret Pep Total Protein Albumin Globulin Albumin/Globulin Ratio Specimen Hemolysis 11/19/17 11/20/17 11/20/17 17:46 04:23 04:25 WBC RBC Hgb Hct MCV MCH MCHC RDW Std Deviation Plt Count MPV Immature Gran % (Auto) Neut % (Auto) Lymph % (Auto) Scott % (Auto) Eos % (Auto) Baso % (Auto) Neut # (Auto) Lymph # (Auto) Scott # (Auto) Eos # (Auto) Baso # (Auto) Abs Immat Gran (auto) Neutrophils % (Manual) Band Neutrophils % Lymphocytes % (Manual) Monocytes % (Manual) Eosinophils % (Manual) Basophils % (Manual) Metamyelocytes % Neutrophils # (Manual) Band Neutrophils # Lymphocytes # (Manual) Monocytes # (Manual) Eosinophils # (Manual) Basophils # (Manual) Metamyelocytes # Nucleated RBCs Anisocytosis RBC Morph Comment Sample Site R radial Alveolar Air PO2 ABG pH 7.403 ABG pCO2 50 H ABG pO2 39.9 L* ABG HCO3 31.4 H ABG Total CO2 32.9 H ABG O2 Saturation 74.0 L ABG Base Excess 5.5 H Modified Manuel Test Positive A-a Gradient a/A Ratio O2 Delivery Method Cannula Vent Rate 16 FiO2 FiO2 (liters per min) 5 PEEP Inspiratory Pressure Turbidity < 20 Sodium 143 Potassium 4.5 Chloride 101 Carbon Dioxide 34 H Anion Gap 8 BUN 37.0 H Creatinine 1.0 GFR Calculation 55 BUN/Creatinine Ratio 37 H Glucose 143 H Glucometer Calculated Osmolality 286 H Calcium 9.3 Phosphorus Magnesium Total Bilirubin 0.40 Icterus Index < 2 AST 31 ALT 33 Alkaline Phosphatase 52 NT-Pro-B Natriuret Pep 1710 H Total Protein 6.5 Albumin 3.2 L Globulin 3.3 Albumin/Globulin Ratio 1.0 L Specimen Hemolysis < 15 06/08/18 12:05 WBC RBC Hgb Hct MCV MCH MCHC RDW Std Deviation Plt Count MPV Immature Gran % (Auto) Neut % (Auto) Lymph % (Auto) Scott % (Auto) Eos % (Auto) Baso % (Auto) Neut # (Auto) Lymph # (Auto) Scott # (Auto) Eos # (Auto) Baso # (Auto) Abs Immat Gran (auto) Neutrophils % (Manual) Band Neutrophils % Lymphocytes % (Manual) Monocytes % (Manual) Eosinophils % (Manual) Basophils % (Manual) Metamyelocytes % Neutrophils # (Manual) Band Neutrophils # Lymphocytes # (Manual) Monocytes # (Manual) Eosinophils # (Manual) Basophils # (Manual) Metamyelocytes # Nucleated RBCs Anisocytosis RBC Morph Comment Sample Site Alveolar Air PO2 ABG pH ABG pCO2 ABG pO2 ABG HCO3 ABG Total CO2 ABG O2 Saturation ABG Base Excess Modified Manuel Test A-a Gradient a/A Ratio O2 Delivery Method Vent Rate FiO2 FiO2 (liters per min) PEEP Inspiratory Pressure Turbidity Sodium Potassium Chloride Carbon Dioxide Anion Gap BUN Creatinine GFR Calculation BUN/Creatinine Ratio Glucose Glucometer 239 Calculated Osmolality Calcium Phosphorus Magnesium Total Bilirubin Icterus Index AST ALT Alkaline Phosphatase NT-Pro-B Natriuret Pep Total Protein Albumin Globulin Albumin/Globulin Ratio Specimen Hemolysis Assessment and Plan (1) Acute and chronic respiratory failure with hypercapnia Status: Acute Assessment and plan: recommend transfer to ICU. Try heated high high flow O2 (Vapotherm) to try to remove BIPAP for short periods Will likely still require ongoing respiratory support for the forseeable future. I discussed the case with nursing, RT and family Etiology of her respiratory failure appears to be multifactorial (obesity, atelectasis, immobility and deconditioning, restrictive lung disease She may benefit from transfer to [facility] for further weaning from Bipap ( to night and prn) On the basis of morbid obesity and restrictive lung disease, with chronic hypercapnic failure, this paitent would benefit from home vent to mask ventilation. I recommend starting home vent to mask at night and as needed to control her hypercapnia. Use of home vent to mask will reduce the risk of worsening respiratory status that would lead to hospitalization and . Current Visit: Yes (2) Restrictive lung disease Status: Acute Current Visit: Yes (3) Morbid obesity with BMI of 60.0-69.9, adult Status: Acute Current Visit: Yes - Time Spent With Patient Total time spent is greater than 50% in coordination of care (as documented) at patient's floor/unit and/or counseling patient: less than 15 minutes
--- NOTE | 2017-11-20 17:17 | Echocardiogram ---
DATE OF PROCEDURE November 20, 2017 This is a two-dimensional echo with spectral Doppler, color-flow and M-mode. It was obtained in a patient with lower extremity edema. This was a technically very difficult study. Left atrium is dilated. Left ventricle end-diastolic dimension is normal. Left ventricle wall thickness is increased. LV systolic function is grossly normal with ejection fraction of about 69%. Right atrium is dilated. Right ventricle is normal. Aortic root dimension is normal. Mitral valve is morphologically normal with mild mitral regurgitation. Aortic valve was not visualized well. Tricuspid valve shows mild tricuspid regurgitation with normal estimated pulmonary artery systolic pressure of 31. Pulmonary valve shows no pulmonary insufficiency but it was not visualized well. There is no pericardial effusion. IMPRESSION 1. Technically difficult study. 2. Grossly normal LV systolic function with ejection fraction of 69%. 3. Biatrial dilation. 4. Left ventricular hypertrophy. 5. Pacemaker present in right heart. 6. Mild mitral regurgitation. 7. Trace of tricuspid regurgitation with normal estimated pulmonary artery systolic pressure of 31. MTDD
[2017-11-20] MEDS: NS FLUSH BAG 500ml IV PRN (21:10)
[2017-11-20] MEDS: DiphenhydrAMINE 25 MG CAPSULE PO SCH (22:33)
[2017-11-21] MEDS: SUCRALFATE 1 GM TABLET PO SCH ×5 (00:22→20:03)
[2017-11-21] MEDS: HEPARIN SUB-Q 5,000units/0.5ml INJECTION SQ SCH ×3 (00:23→16:57)
[2017-11-21] MEDS: ALBUTEROL 2.5mg/3ml (0.083%) NEB AEROSOL SCH ×6 (04:17→22:58)
[2017-11-21] MEDS: BUMETANIDE DRIP 12.5 MG in CONTAINER,EMPTY 50 ML IV SCH ×2 (04:41→15:51)
[2017-11-21] MEDS: Oxycodone *IR* 5 MG TABLET PO PRN ×4 (04:54→18:54)
[2017-11-21] MEDS: PANTOPRAZOLE 20 MG TABLET PO SCH (06:42)
[2017-11-21] MEDS: LEVOTHYROXINE 150 MCG TABLET PO SCH (06:42)
[2017-11-21] MEDS: CIPROFLOXACIN 500 MG TABLET PO SCH ×2 (06:42→22:00)
[2017-11-21] MEDS: INSULIN ASPART 100unit/ml INJECTION SQ PRN ×4 (06:42→22:01)
[2017-11-21] MEDS: LISINOPRIL 10 MG TABLET PO SCH (08:30)
[2017-11-21] MEDS: PredniSONE 20 MG TABLET PO SCH (08:30)
[2017-11-21] MEDS: MULTI-VITAMIN + MINERAL TABLET PO SCH (08:31)
[2017-11-21] MEDS: MAGNESIUM OXIDE 400 MG TABLET PO SCH (08:31)
[2017-11-21] MEDS: POLYETHYL GLYCOL 3350 17gm PACKET PO SCH (08:31)
[2017-11-21] MEDS: INSULIN ASPART 100unit/ml INJECTION SQ SCH ×2 (08:32→19:07)
[2017-11-21] MEDS: INSULIN GLARGINE 100unit/ml INJECTION SQ SCH ×3 (08:33→20:03)
[2017-11-21] MEDS ORDERED: INSULIN ASPART 100unit/ml INJECTION SQ SCH (08:40)
[2017-11-21] MEDS ORDERED: INSULIN GLARGINE 100unit/ml INJECTION SQ ONE (09:45)
--- NOTE | 2017-11-21 10:06 | Progress Note ---
- Date 11/21/17 Subjective: The patient was seen this morning in her room. Bumex drip was initiated yesterday and she has had very good urine output. She had 3 L out yesterday and over 3 L out since midnight. She has not noticed any improvement in her breathing. She has been on Vapotherm since admission to CCU yesterday. She is on 35 L/m, 40% FiO2. She did not use BiPAP last night. She states her appetite is getting better. Blood sugars were elevated yesterday. She denies any nausea, vomiting, diarrhea or constipation. She has minimal cough. She had some chest wall pain on admission but that is better now. Her biggest complaint is of chronic right sciatica pain which she has had for years off and on. At home she is usually on 2 L of oxygen chronically. She does not use CPAP or BiPAP at home. She states that at home she was on Lasix 40 mg twice a day but stopped that a couple of weeks ago because she was urinating so frequently. She did note that over the past couple of weeks she has had increased edema in her legs and noticed her upper abdomen seemed swollen. She feels like the abdominal swelling has resolved. The patient states she's been on prednisone for a couple of years for temporal arteritis and PMR. Objective Vital signs: Temperature 97.3 F 11/21/17 04:00 Pulse Rate 69 11/21/17 06:00 Respiratory Rate 22 11/21/17 09:07 Blood Pressure 134/62 11/21/17 06:00 Pulse Oximetry 97 11/21/17 07:16 Height/Weight/BMI: Height 1.5 m Weight 151 kg Body Mass Index 69.7 Comments: Afebrile, O2 sat 91% on Vapotherm 35 L/m and FiO2 of 40%. Blood pressure 130/ 59. Heart rate 69. Respirations 11. Weight today is 146.9. This is down 3 kg from yesterday when she was admitted to CCU. Maximum weight was 157.7 on admission. Cumulative I&O is -2 L GEN-alert, oriented, no acute distress HEENT-sclera anicteric, pupils are equal CV-regular rate and rhythm CHEST-clear to auscultation bilaterally ABD-soft, obese, nontender with positive bowel sounds. No obvious edema -Wang in place with good urine output EXT-no edema NEURO-no focal deficits, chronic pain in right hip/buttock SKIN-warm and dry Results - Labs CBC & Chem 7: 11/21/17 04:15 11/21/17 04:15 Labs: Blood sugar this morning 165. Blood sugars yesterday 244, 264, 239 Microbiology Results: Microbiology 11/15/17 16:04 Urine, Voided (Cc/notcc) Urine Culture - Final No Growth After 2 Days - ABG Interpretation ABG results: 11/19/17 17:46 ABG pH 7.403 ABG pCO2 50 H ABG pO2 39.9 L* ABG HCO3 31.4 H ABG Total CO2 32.9 H ABG O2 Saturation 74.0 L ABG Base Excess 5.5 H Assessment and Plan (1) Temporal arteritis Current visit: No Status: Chronic (2) Fibromyalgia Current visit: No Status: Chronic (3) Chronic steroid use Current visit: No Status: Chronic (4) Morbid obesity Current visit: No Status: Chronic (5) Diabetes mellitus type 2 in obese Current visit: No Status: Chronic (6) Presence of cardiac pacemaker Current visit: No Status: Chronic (7) Sepsis Problem details: severe as indicated by tachypnea, leukocytosis, elevated lactate 3.3 Current visit: No Status: Acute (8) GERD (gastroesophageal reflux disease) Current visit: No Status: Chronic (9) Chronic pain syndrome Current visit: No Status: Chronic (10) Pyelonephritis Current visit: Yes Status: Acute Assessment and Plan: Severe Sepsis 2/2 Pyelonephritis-Resolved -Flank pain, CT abd showed stranding on admission. -Renal ultrasound unremarkable -UA culture from 11/13 prior to admission revealed Enterobacter cloacae sensitive to cefepime and cipro -Received 3 days of Cefepime, now on cipro D5 Acute on Chronic Hypoxic Hypercapnic Resp. failure -Initially thought maybe d/t fluid overload but diuretic therapy hasn't helped -Unlikely pna as pt has no sx's and has procal that is low, CRP pending and no clear infiltrate -Now requiring bipap, likely obesity hypoventilation syndrome contributing -VQ scan-low prob of PE, LE doppler neg -BNP elevated at ~2500, order echo -Last echo showed EF 57% -Pulm consulted-worsening respiratory failure likely multifactorial with obesity , atelectasis, immobility and deconditioning, restrictive lung disease, possibly some pulmonary edema as well since the patient did discontinue Lasix weeks before admission. -Vapotherm initiated 11/20/2017 in CCU, will use BiPAP at night Possible pulmonary edema -Echo revealed ejection fraction of 69%, left ventricular hypertrophy and technically difficult study -The patient had discontinued her Lasix 40 mg by mouth twice a day weeks before admission because of frequent urination. -IV Lasix given early in the hospital course, switched to Bumex drip on 2017 with good diuresis thus far, not much improvement in respiratory status yet DARREL-Resolved -Cr peaked at 1.6, now back to normal -Renal ultrasound unremarkable. Continue to monitor. DM -Blood sugars elevated but oral intake increasing -Increase Levemir to 30 units twice a day and increase NovoLog with meals to 22 units 3 times a day (NovoLog 28U with breakfast at home, 30U BIDLS at home). (Levemir 45U at home). HTN -Continue home diltiazem, lisinopril - well controlled. Hypothyroid -Cont. home levo Afib -Unclear hx, has pacemaker but no anti-coagulation? -Continue to monitor closely on telemetry. Temporal Arteritis -Cont. home prednisone 20mg -Will not stress dose at this time -She has been on prednisone a couple of years by her account, would recommend titrating down when her acute medical illness has improved Chest pain, atypical and pleuritic-improved since admission -Suspect related to GI. -PPI for GERD. -Tums and maalox PRN. -EKGs stable, Troponin <0.012. Continue to monitor closely on telemetry. Ppx -Heparin -Protonix 11/21/2017 Impression and plan The patient did tolerate Vapotherm and did not require BiPAP last night. This is an improvement because she was BiPAP dependent previously. Discussed today with Dr. Hubbard. We'll have the patient stay on Vapotherm as tolerated during the day and use BiPAP at night. The patient is diuresing well on Bumex drip. We'll repeat a basic metabolic profile at 2:00 this afternoon and determine if it should be continued at the same rate. Will increase insulin today due to hyperglycemia and improved appetite. Consider transfer to LTAC Thursday if still requiring Vapotherm. Consult PT and OT to help with mobility and with patient's sciatic pain. Continue Cipro for enterobacter pyelonephritis Discussed care plan with the patient and her nurse. Greater than 40 minutes critical care time spent seeing and evaluating the patient. DVT Prophylaxis: SQ Heparin GI Prophylaxis: Protonix Resuscitation Status: Full Code - Physician Narrative Narrative: Date: 11/21/17 Time: 1001 Hospital Course Summary Disclaimer: The visit summary below is not to be considered part of the above Progress Note. Hospital Course: 11/15/17 Pt overall improving with IV cefepime for pyelonephritis, Cr increased today, will do work up with kidney US and UA and give fluids and recheck labs. If pt stable and continues to improve, will consider switching to PO abx tomorrow. 11/16/17 Making slow gains. Leukocytosis resolved. Electrolytes stable. Persistent hyperglycemia though oral intake is decreased. Continue decreased home insulins with sliding scale and continue to monitor closely. UA culture from 11/13 prior to admission revealed Enterobacter cloacae. Repeat UA culture pending. Continue Cefepime IV and plan to discharge home on cipro. Anticipate discharge in near future, hopefully tomorrow 11/17/17. 11/17/17 Pt requiring more O2, cxr shows pulm edema, will do iv lasix. Changed IV abx to PO. Monito 11/18/[address] still not at baseline, hypercapnia likely 2/2 hypoventilation and hypoxia likely 2/2 to fluids, will do bipap and diuretics and monitor. 11/19/17 Pt still having acute on chronic hypercapnic hypoxic resp failure, likely 2/2 obesity hypoventilation syndrome. Now using bipap, diuretics don't seem to be helping, will consult pulm. 11/20/17 Resp distress is stable possibly a little worse, CXR still shows diffuse haziness. Will transfer pt to icu and start bumex drip to try to figure out if this is pulm edema. Pt has complex lung picture and it is unclear how much of it is her chronic issues getting worse and how much is acute pathology. Will monitor closely. 11/21/2017 Impression and plan The patient did tolerate Vapotherm and did not require BiPAP last night. This is an improvement because she was BiPAP dependent previously. Discussed today with Dr. Hubbard. We'll have the patient stay on Vapotherm as tolerated during the day and use BiPAP at night. The patient is diuresing well on Bumex drip. We'll repeat a basic metabolic profile at 2:00 this afternoon and determine if it should be continued at the same rate. Will increase insulin today due to hyperglycemia and improved appetite. Consider transfer to LTAC Thursday if still requiring Vapotherm. Consult PT and OT to help with mobility and with patient's sciatic pain. Continue Cipro for enterobacter pyelonephritis
[2017-11-21] MEDS: MULTI-VIT + MINERAL (Opti-gen) TABLET PO SCH ×2 (11:32→20:03)
[2017-11-21] MEDS: TRAMADOL 50 MG TABLET PO SCH (20:04)
[2017-11-21] MEDS: DiphenhydrAMINE 25 MG CAPSULE PO SCH (20:04)
[2017-11-21] MEDS: NS FLUSH BAG 500ml IV PRN (20:05)
[2017-11-21] MEDS ORDERED: NIACIN PO SCH (21:00)
[2017-11-22] MEDS: HEPARIN SUB-Q 5,000units/0.5ml INJECTION SQ SCH ×3 (00:41→16:28)
[2017-11-22] MEDS: DOCUSATE SODIUM 100 MG CAPSULE PO PRN ×2 (00:41→22:01)
[2017-11-22] MEDS: ALBUTEROL 2.5mg/3ml (0.083%) NEB AEROSOL SCH ×6 (03:04→23:45)
[2017-11-22] MEDS: PANTOPRAZOLE 20 MG TABLET PO SCH (06:09)
[2017-11-22] MEDS: LEVOTHYROXINE 150 MCG TABLET PO SCH (06:09)
[2017-11-22] MEDS: INSULIN ASPART 100unit/ml INJECTION SQ PRN ×2 (06:10→19:28)
[2017-11-22] MEDS: CIPROFLOXACIN 500 MG TABLET PO SCH (06:10)
[2017-11-22] MEDS: Oxycodone *IR* 5 MG TABLET PO PRN ×3 (06:10→17:28)
[2017-11-22] MEDS: SUCRALFATE 1 GM TABLET PO SCH ×4 (06:10→20:50)
[2017-11-22] MEDS: POLYETHYL GLYCOL 3350 17gm PACKET PO SCH (08:15)
[2017-11-22] MEDS: LISINOPRIL 10 MG TABLET PO SCH (08:16)
[2017-11-22] MEDS: MULTI-VIT + MINERAL (Opti-gen) TABLET PO SCH ×2 (08:16→20:48)
[2017-11-22] MEDS: PredniSONE 20 MG TABLET PO SCH (08:16)
[2017-11-22] MEDS: MAGNESIUM OXIDE 400 MG TABLET PO SCH (08:16)
[2017-11-22] MEDS: MULTI-VITAMIN + MINERAL TABLET PO SCH (08:16)
[2017-11-22] MEDS: NIACIN 100 MG PO SCH (08:18)
[2017-11-22] MEDS: INSULIN ASPART 100unit/ml INJECTION SQ SCH ×3 (08:19→19:27)
[2017-11-22] MEDS: INSULIN GLARGINE 100unit/ml INJECTION SQ SCH ×2 (08:19→20:48)
[2017-11-22] MEDS: ACETAMINOPHEN 325 MG TABLET PO PRN (08:38)
--- NOTE | 2017-11-22 09:28 | Progress Note ---
- Date 11/22/17 Subjective: The patient was seen this morning in CCU. She states her breathing feels better. They were able to decrease her FiO2 to 30% (it had been up to 50%) and we were able to decrease the flow Rate down to 30 L/m (down from a high of 35). She did tolerate BiPAP for most of the night. The patient still has some chest wall pain but no other chest pain. She has chronic sciatica pain. She is diuresing well with Bumex. She has not had a bowel movement in the past couple days, but had not eaten very well until yesterday. She has not been able to get up out of bed due to weakness. PT was consulted. Objective Vital signs: Temperature 98.0 F 11/22/17 04:00 Pulse Rate 69 11/22/17 07:00 Respiratory Rate 20 11/22/17 07:05 Blood Pressure 110/53 11/22/17 06:04 Pulse Oximetry 94 11/22/17 09:08 Height/Weight/BMI: Height 1.5 m Weight 146.9 kg Body Mass Index 69.7 Comments: Weight is 144 kg down from 146.9 yesterday I&O yesterday [id number] GEN-alert, oriented, no acute distress HEENT-sclera anicteric, or paroxysmal moist NECK-supple CV-regular rate and rhythm CHEST-clear to auscultation bilaterally ABD-soft, obese, nontender with positive bowel sounds -Wang in place with good urine output EXT-no edema, hands and feet are both wrinkly post diuresis NEURO-generalized weakness SKIN-warm and dry Results - Labs CBC & Chem 7: 11/22/17 04:30 11/22/17 04:30 Labs: Magnesium is 1.5, calcium and phosphorus are normal. Microbiology Results: Microbiology 11/15/17 16:04 Urine, Voided (Cc/notcc) Urine Culture - Final No Growth After 2 Days Assessment and Plan (1) Temporal arteritis Current visit: No Status: Chronic (2) Fibromyalgia Current visit: No Status: Chronic (3) Chronic steroid use Current visit: No Status: Chronic (4) Morbid obesity Current visit: No Status: Chronic (5) Diabetes mellitus type 2 in obese Current visit: No Status: Chronic (6) Presence of cardiac pacemaker Current visit: No Status: Chronic (7) Sepsis Problem details: severe as indicated by tachypnea, leukocytosis, elevated lactate 3.3 Current visit: No Status: Acute (8) GERD (gastroesophageal reflux disease) Current visit: No Status: Chronic (9) Chronic pain syndrome Current visit: No Status: Chronic (10) Pyelonephritis Current visit: Yes Status: Acute Assessment and Plan: Severe Sepsis 2/2 Pyelonephritis-Resolved -Flank pain, CT abd showed stranding on admission. -Renal ultrasound unremarkable -UA culture from 11/13 prior to admission revealed Enterobacter cloacae sensitive to cefepime and cipro -Received 3 days of Cefepime, now on cipro D6 Acute on Chronic Hypoxic Hypercapnic Resp. failure -Possible pulmonary edema, O2 requirements are now improving after diuresis with a cumulative I&O of -5 L, weight is down 13 kg -Unlikely pna as pt has no sx's and has procal that is low, CRP pending and no clear infiltrate -Now requiring bipap, likely obesity hypoventilation syndrome contributing -VQ scan-low prob of PE, LE doppler neg -BNP elevated at ~2500, order echo -Last echo showed EF 57% -Pulm consulted-worsening respiratory failure likely multifactorial with obesity , atelectasis, immobility and deconditioning, restrictive lung disease, possibly some pulmonary edema as well since the patient did discontinue Lasix weeks before admission. -Vapotherm initiated 11/20/2017 in CCU, will use BiPAP at night Possible pulmonary edema -Echo revealed ejection fraction of 69%, left ventricular hypertrophy and technically difficult study -The patient had discontinued her Lasix 40 mg by mouth twice a day weeks before admission because of frequent urination. -IV Lasix given early in the hospital course, switched to Bumex drip on 2017 with good diuresis thus far, -O2 requirements are now improving after diuresis with a cumulative I&O of -5 L , weight is down 13 kg DARREL-Resolved -Cr peaked at 1.6, now back to normal -Renal ultrasound unremarkable. Continue to monitor. DM -Blood sugars elevated but oral intake increasing -Increase Lantus to 30 units twice a day and increase NovoLog with meals to 28 units 3 times a day (NovoLog 28U with breakfast at home, 30U BIDLS at home). (Levemir 45U at home). HTN -Continue home diltiazem, lisinopril - well controlled. Hypothyroid -Cont. home levo Afib -Unclear hx, has pacemaker but no anti-coagulation? -Continue to monitor closely on telemetry. Temporal Arteritis -Cont. home prednisone 20mg -Will not stress dose at this time -She has been on prednisone a couple of years by her account, would recommend titrating down when her acute medical illness has improved Chest pain, atypical and pleuritic-improved since admission -Suspect related to GI. -PPI for GERD. -Tums and maalox PRN. -EKGs stable, Troponin <0.012. Continue to monitor closely on telemetry. Ppx -Heparin -Protonix 11/22/2017 Impression and plan Overall, the patient is doing well. She was diuresing well on Bumex drip. BUN is stable at 31. Creatinine is up to 1.2. CO2 is 41. Will discontinue Bumex drip. Probably start oral Bumex tomorrow. Continue to monitor electrolytes closely. Weight is down 13 kg and I&O's are -5 L. We were able to titrate down the patient's oxygen on Vapotherm. She is tolerating BiPAP. Consideration for LTAC tomorrow to help with weaning. PT OT for help with mobility and strengthening Blood sugars are improved today after adjustment in insulin yesterday. They need further adjustment later today or tomorrow. Continue Cipro for UTI/pyelonephritis. She is currently on day 9 of appropriate antibiotics. Recheck CBC, renal panel, magnesium tomorrow. Greater than 40 minutes of critical care time spent seeing and evaluating the patient in determining care plan. Discussed care plan with her nurse. DVT Prophylaxis: SCD's, SQ Heparin GI Prophylaxis: Protonix Resuscitation Status: Full Code - Physician Narrative Narrative: Date: 11/22/17 Time: 0925 Hospital Course Summary Disclaimer: The visit summary below is not to be considered part of the above Progress Note. Hospital Course: 11/15/17 Pt overall improving with IV cefepime for pyelonephritis, Cr increased today, will do work up with kidney US and UA and give fluids and recheck labs. If pt stable and continues to improve, will consider switching to PO abx tomorrow. 11/16/17 Making slow gains. Leukocytosis resolved. Electrolytes stable. Persistent hyperglycemia though oral intake is decreased. Continue decreased home insulins with sliding scale and continue to monitor closely. UA culture from 11/13 prior to admission revealed Enterobacter cloacae. Repeat UA culture pending. Continue Cefepime IV and plan to discharge home on cipro. Anticipate discharge in near future, hopefully tomorrow 11/17/17. 11/17/17 Pt requiring more O2, cxr shows pulm edema, will do iv lasix. Changed IV abx to PO. Monito 11/18/[address] still not at baseline, hypercapnia likely 2/2 hypoventilation and hypoxia likely 2/2 to fluids, will do bipap and diuretics and monitor. 11/19/17 Pt still having acute on chronic hypercapnic hypoxic resp failure, likely 2/2 obesity hypoventilation syndrome. Now using bipap, diuretics don't seem to be helping, will consult pulm. 11/20/17 Resp distress is stable possibly a little worse, CXR still shows diffuse haziness. Will transfer pt to icu and start bumex drip to try to figure out if this is pulm edema. Pt has complex lung picture and it is unclear how much of it is her chronic issues getting worse and how much is acute pathology. Will monitor closely. 11/21/2017 Impression and plan The patient did tolerate Vapotherm and did not require BiPAP last night. This is an improvement because she was BiPAP dependent previously. Discussed today with Dr. Hubbard. We'll have the patient stay on Vapotherm as tolerated during the day and use BiPAP at night. The patient is diuresing well on Bumex drip. We'll repeat a basic metabolic profile at 2:00 this afternoon and determine if it should be continued at the same rate. Will increase insulin today due to hyperglycemia and improved appetite. Consider transfer to LTAC Thursday if still requiring Vapotherm. Consult PT and OT to help with mobility and with patient's sciatic pain. Continue Cipro for enterobacter pyelonephritis 11/22/2017 Impression and plan Overall, the patient is doing well. She was diuresing well on Bumex drip. BUN is stable at 31. Creatinine is up to 1.2. CO2 is 41. Will discontinue Bumex drip. Probably start oral Bumex tomorrow. Continue to monitor electrolytes closely. Weight is down 13 kg and I&O's are -5 L. We were able to titrate down the patient's oxygen on Vapotherm. She is tolerating BiPAP. Consideration for LTAC tomorrow to help with weaning. PT OT for help with mobility and strengthening Blood sugars are improved today after adjustment in insulin yesterday. They need further adjustment later today or tomorrow. Continue Cipro for UTI/pyelonephritis. She is currently on day 9 of appropriate antibiotics. Recheck CBC, renal panel, magnesium tomorrow. Greater than 40 minutes of critical care time spent seeing and evaluating the patient in determining care plan. Discussed care plan with her nurse.
[2017-11-22] MEDS: MAGNESIUM SULFATE 1gm PREMIX 1 GM/100 ML BAG IV SCH ×2 (09:51→10:51)
--- NOTE | 2017-11-22 12:23 | XRay Report ---
Indication: monitor increased o2 needs PROCEDURE: XR chest 1V: Encounter: Initial Comparison: November 20, 2017 Findings: Improving aeration of the right lung. Hazy left-sided infiltrates appear grossly stable. Stable small left effusion. No pneumothorax. Heart size and mediastinal contours are stable. Pulmonary vascularity appears less congested. Impression: Improving pulmonary edema. .
[2017-11-22] MEDS: DiphenhydrAMINE 25 MG CAPSULE PO SCH (23:06)
[2017-11-22] MEDS: TRAMADOL 50 MG TABLET PO SCH (23:06)
[2017-11-23] MEDS: CIPROFLOXACIN 500 MG TABLET PO SCH ×3 (01:15→22:54)
[2017-11-23] MEDS: HEPARIN SUB-Q 5,000units/0.5ml INJECTION SQ SCH ×3 (01:16→18:21)
[2017-11-23] MEDS: ALBUTEROL 2.5mg/3ml (0.083%) NEB AEROSOL SCH ×6 (04:48→23:14)
[2017-11-23] MEDS: SUCRALFATE 1 GM TABLET PO SCH ×4 (05:37→20:37)
[2017-11-23] MEDS: LEVOTHYROXINE 150 MCG TABLET PO SCH (05:37)
[2017-11-23] MEDS: PANTOPRAZOLE 20 MG TABLET PO SCH (05:37)
[2017-11-23] MEDS: NIACIN 100 MG PO SCH (09:21)
[2017-11-23] MEDS: MULTI-VIT + MINERAL (Opti-gen) TABLET PO SCH ×2 (09:21→20:37)
[2017-11-23] MEDS: INSULIN ASPART 100unit/ml INJECTION SQ SCH ×3 (09:21→18:21)
[2017-11-23] MEDS: MAGNESIUM OXIDE 400 MG TABLET PO SCH (09:22)
[2017-11-23] MEDS: PredniSONE 20 MG TABLET PO SCH (09:22)
[2017-11-23] MEDS: LISINOPRIL 10 MG TABLET PO SCH (09:22)
[2017-11-23] MEDS: INSULIN GLARGINE 100unit/ml INJECTION SQ SCH ×2 (09:23→20:36)
[2017-11-23] MEDS: MULTI-VITAMIN + MINERAL TABLET PO SCH (09:23)
--- NOTE | 2017-11-23 09:23 | Pulmonology Progress Note ---
Subjective Principal diagnosis: Hypoxic hypercapnic respiratory failure Interval history: Pt awake and on VT 30, 35%. states some SOB noted but improving, + cough but no sputum. ) Exam Vital signs: Temperature 98.6 F 11/22/17 23:24 Pulse Rate 69 11/23/17 06:00 Respiratory Rate 16 11/23/17 08:17 Blood Pressure 108/52 11/23/17 06:00 Pulse Oximetry 94 11/23/17 08:17 Inpatient Medications: Generic Name Dose Route Start Last Admin Trade Name Freq PRN Reason Stop Dose Admin Acetaminophen 650 mg 11/14/17 04:25 11/22/17 08:38 Tylenol PO 650 mg Q4H PRN Administration Discomfort Al Hydroxide/Mg Hydroxide 30 ml 11/16/17 11:57 Maalox Plus PO Q4H PRN Indigestion Albuterol Sulfate 2.5 mg 11/19/17 18:45 11/23/17 08:17 Proventil Neb (0.083%) AEROSOL 2.5 mg Q4H CARMEL Administration Calcium Carbonate 750 mg 11/16/17 11:57 11/18/17 10:00 Tums Extra Strength PO 750 mg PRN PRN Administration Dyspepsia Capsaicin 1 applic 11/18/17 10:57 11/22/17 20:48 Trixaicin TOP Not Given BID CARMEL Cholecalciferol 1,000 unit 11/15/17 09:00 11/22/17 20:51 Vit. D-3 PO 1,000 unit TID CARMEL Administration Ciprofloxacin 500 mg 11/17/17 23:00 11/23/17 07:38 Cipro 500 Mg PO 500 mg 0700,2300 CARMEL Administration Dextrose 0 ml 11/14/17 04:19 D50%W IVP PRN PRN Hypoglycemia Diltiazem HCl 240 mg 11/14/17 21:00 11/22/17 20:50 Cardizem Cd 240 Mg PO 240 mg BID CARMEL Administration Diphenhydramine HCl 25 mg 11/14/17 21:00 11/22/17 23:06 Benadryl PO 25 mg HS CARMEL Administration Docusate Sodium 200 mg 11/14/17 16:17 11/22/17 22:01 Colace PO 200 mg DAILY PRN Administration Constipation Glucose 37.5 gm 11/14/17 04:19 Glutose 15 PO PRN PRN Hypoglycemia Guaifenesin/Dextromethorphan 10 ml 11/14/17 04:25 Robitussin Dm PO Q4H PRN Cough /Congestion Heparin Sodium (Porcine) 5,000 units 11/14/17 09:00 11/23/17 01:16 Heparin Sq SQ 5,000 units Q8HR CARMEL Administration Bumetanide 12.5 mg/ IV 50 mls @ 2 mls/hr 11/20/17 15:15 11/22/17 08:04 Solution IV Infused Q24H CARMEL Infusion 0.5 MG/HR Insulin Aspart 2 - 8 unit 11/14/17 04:19 11/22/17 19:28 Novolog SQ 3 unit SS PRN Administration Hyperglycemia Protocol Insulin Aspart 28 unit 11/21/17 17:59 11/22/17 19:27 Novolog SQ 28 unit TIDWM CARMEL Administration Insulin Glargine 30 unit 11/21/17 08:52 11/22/17 20:48 Lantus SQ 30 unit BID CARMEL Administration Levothyroxine Sodium 150 mcg 11/15/17 06:30 11/23/17 05:37 Synthroid PO 150 mcg ACB CARMEL Administration Lisinopril 10 mg 11/15/17 09:00 11/22/17 08:16 Prinivil PO 10 mg DAILY CARMEL Administration Magnesium Oxide 400 mg 11/15/17 09:00 11/22/17 08:16 Magox PO 400 mg DAILY CARMEL Administration Multivitamins/Minerals 1 tab 11/15/17 09:00 11/22/17 08:16 Therapeutic - M PO 1 tab DAILY CARMEL Administration Multivitamins/Minerals 1 tab 11/15/17 09:00 11/22/17 20:48 Vision PO 1 tab BID CARMEL Administration Niacin 150 mg 11/22/17 08:00 11/22/17 08:18 Vit. B-3 PO 150 mg WB CARMEL Administration Nitroglycerin 0.4 mg 11/16/17 04:10 11/16/17 04:08 Nitrostat SL 0.4 mg Q5MIN3 PRN Administration Chest pain Oxycodone HCl 10 mg 11/18/17 10:53 11/22/17 17:28 Roxicodone *Ir* PO 10 mg Q4H PRN Administration Pain Pantoprazole Sodium 40 mg 11/20/17 06:30 11/23/17 05:37 Protonix PO 40 mg ACB CARMEL Administration Polyethylene Glycol 17 gm 11/15/17 09:00 11/22/17 08:15 Miralax PO 17 gm DAILY CARMEL Administration Prednisone 20 mg 11/15/17 08:00 11/22/17 08:16 Deltasone 20 Mg PO 20 mg WB CARMEL Administration Sodium Chloride 10 - 80 ml 11/14/17 04:19 11/17/17 20:56 Iv Flush IV 10 ml PRN PRN Administration Flushing Sodium Chloride 500 ml 11/20/17 19:22 11/21/17 20:05 Normal Saline IV 500 ml PRN PRN Administration Sucralfate 1 gm 11/18/17 17:00 11/23/17 05:37 Carafate PO 1 gm ACHS CARMEL Administration Tizanidine HCl 4 mg 11/14/17 21:00 11/22/17 20:49 Zanaflex PO 4 mg HS CARMEL Administration Tramadol HCl 50 mg 11/14/17 21:00 11/22/17 23:06 Ultram PO 50 mg HS CARMEL Administration Discontinued Medications Generic Name Dose Route Start Last Admin Trade Name Freq PRN Reason Stop Dose Admin Albuterol Sulfate 2.5 mg 11/16/17 02:26 11/16/17 16:09 Proventil Neb (0.083%) AEROSOL 2.5 mg Q4H PRN Administration Albuterol/Ipratropium 3 ml 11/17/17 14:20 Duoneb AEROSOL Q6H PRN Ciprofloxacin 500 mg 11/17/17 14:00 11/17/17 15:47 Cipro 500 Mg PO Not Given Q12HR CARMEL Furosemide 40 mg 11/14/17 21:00 11/14/17 21:00 Lasix 40 Mg Tab PO 40 mg BID CARMEL Administration Furosemide 40 mg 11/15/17 09:00 11/20/17 09:36 Lasix 40 Mg Tab PO 40 mg [id number] CARMEL Administration Furosemide 40 mg 11/16/17 21:00 11/18/17 09:20 Lasix 40 Mg/4 Ml IVP 40 mg Q12HR CARMEL Administration Furosemide 40 mg 11/19/17 09:00 11/19/17 10:14 Lasix 40 Mg/4 Ml IVP 40 mg Q12HR CARMEL Administration Guaifenesin 400 mg 11/17/17 14:20 Robitussin Liq PO Q4H PRN Cough /Congestion Heparin Sodium (Beef Lung) 9,400 unit 11/16/17 04:10 Heparin Bolus 60 unit/kg (9400 unit) 11/16/17 04:11 IV O ONE Heparin Sodium (Beef Lung) 9,400 unit 11/16/17 04:10 11/16/17 04:10 Heparin Bolus 60 unit/kg (9400 unit) 11/16/17 04:11 9,400 unit IV Administration O ONE Hydromorphone HCl 0.5 mg 11/14/17 01:28 11/14/17 03:29 Dilaudid IVP 11/14/17 01:29 0.5 mg O ONE Administration Cefepime HCl 1 gm/ Sodium 100 mls @ 200 mls/hr 11/14/17 04:30 11/15/17 10:55 Chloride IV Infused Q6H CARMEL Infusion Sodium Chloride 500 mls @ 250 mls/hr 11/15/17 10:00 11/15/17 13:28 Normal Saline IV 11/15/17 12:00 Infused .Q2H CARMEL Infusion Cefepime HCl 1 gm/ Sodium 100 mls @ 200 mls/hr 11/15/17 18:00 11/17/17 11:25 Chloride IV Infused Q8H CARMEL Infusion Sodium Chloride 500 mls @ 250 mls/hr 11/15/17 18:00 11/15/17 19:58 Normal Saline IV 11/15/17 19:59 Infused .Q2H ONE Infusion Heparin Sodium (Porcine) 20,000 unit in 500 mls @ 21 mls/hr 11/16/17 04:10 04:20 Heparin Drip IV Infused .[id number] CARMEL Titration Protocol Bumetanide 12.5 mg/ IV 100 mls @ 4 mls/hr 11/20/17 14:45 Solution IV Q24H CARMEL 0.5 MG/HR Magnesium Sulfate/Dextrose 1 gm in 100 mls @ 100 mls/hr 11/22/17 07:30 10:51 Mag Sulf 1gm Premix IV 11/22/17 09:29 100 mls/hr Q1H CARMEL Administration Insulin Aspart 5 unit 11/14/17 08:00 11/14/17 12:57 Novolog SQ 5 unit TIDWM CARMEL Administration Insulin Aspart 18 unit 11/14/17 16:28 11/19/17 13:26 Novolog SQ Not Given TIDWM CARMEL Insulin Aspart 14 unit 11/19/17 14:15 11/21/17 08:32 Novolog SQ 14 unit TIDWM CARMEL Administration Insulin Aspart 22 unit 11/21/17 08:40 11/21/17 12:42 Novolog SQ 22 unit TIDWM CARMEL Administration Insulin Glargine 10 unit 11/14/17 09:00 11/14/17 10:09 Lantus SQ 10 unit BID CARMEL Administration Insulin Glargine 30 unit 11/14/17 16:30 11/19/17 10:25 Lantus SQ 30 unit BID CARMEL Administration Insulin Glargine 25 unit 11/19/17 14:05 11/21/17 08:33 Lantus SQ 25 unit BID CARMEL Administration Insulin Glargine 5 unit 11/21/17 09:45 11/21/17 10:36 Lantus SQ 11/21/17 09:46 5 unit O ONE Administration Ketorolac Tromethamine 30 mg 11/14/17 01:28 11/14/17 03:26 Toradol Inj IVP 11/14/17 01:29 30 mg O ONE Administration Metoprolol Tartrate 5 mg 11/16/17 04:08 11/16/17 04:10 Lopressor IVP 11/16/17 04:09 5 mg O ONE Administration Morphine Sulfate 2 - 4 mg 11/14/17 04:19 11/15/17 06:45 Morphine Sulfate Inj IVP 4 mg Q5M PRN Administration Chest pain Morphine Sulfate 2 mg 11/16/17 02:51 11/16/17 14:30 Morphine Sulf 2 Mg Inj IVP 2 mg Q2HR PRN Administration Chest pain Non-Formulary Medication 150 mg 11/21/17 21:00 Niacin [Niacin] PO HS CARMEL Ondansetron HCl 4 mg 11/14/17 04:19 Zofran IVP Q6H PRN Nausea &/or vomiting Oxycodone HCl 5 mg 11/15/17 11:30 11/18/17 04:52 Roxicodone *Ir* PO 5 mg Q6H PRN Administration Pain Pantoprazole Sodium 40 mg 11/14/17 09:00 11/14/17 10:09 Protonix Iv IVP 40 mg DAILY CARMEL Administration Pantoprazole Sodium 20 mg 11/16/17 17:00 11/19/17 05:36 Protonix PO Not Given ACBID [facility] Pharmacy Consult each 11/20/17 06:34 Pharmacy Consult - Fall Risk 11/20/17 06:35 ONE TIME ONE Polyethylene Glycol 17 gm 11/14/17 09:00 11/19/17 10:15 Miralax PO Not Given DAILY [facility] Potassium Chloride 10 meq 11/15/17 08:00 11/15/17 09:03 Micro-K 10 Meq Capsule PO 10 meq WB [facility] Administration Potassium Chloride 20 meq 11/21/17 00:10 11/21/17 00:22 K-Dur 20 Meq Tablet PO 11/21/17 00:11 20 meq O ONE Administration Potassium Chloride 20 meq 11/21/17 00:12 11/21/17 00:22 K-Dur 20 Meq Tablet PO 11/21/17 00:13 20 meq O ONE Administration Prochlorperazine Edisylate 10 mg 11/14/17 01:28 11/14/17 03:28 Compazine Iv IVP 11/14/17 01:29 10 mg O ONE Administration Sodium Chloride 10 - 80 ml 11/14/17 01:26 11/14/17 05:52 Iv Flush IVF 10 ml PRN PRN Administration Flushing Sucralfate 1 gm 11/14/17 17:00 11/18/17 14:08 Carafate PO 1 gm QID CARMEL Administration Tramadol HCl 50 mg 11/14/17 12:50 11/14/17 12:57 Ultram PO 11/14/17 12:51 50 mg O ONE Administration - Constitutional no acute distress, morbidly obese, cooperative - Routine HEENT Exam Head: Present: normocephalic Eye: Present: EOMI, PERRL - Routine Neck Exam Present: supple, full ROM, trachea midline - Routine Respiratory Exam Present: decreased breath sounds, crackles - Routine Cardiovascular Exam Present: RRR, S1, S2, no murmur - Routine Abdominal Exam Present: soft, normoactive bowel sounds - Routine Extremities Exam Present: edema, full ROM - Routine Back/Spine/Pelvis Exam Back/Spine: Present: full ROM - Routine Skin Exam Present: intact, dry - Routine Neurological Exam Present: alert, oriented X3, CN II-XII intact - Routine Psychiatric Exam Present: normal affect, normal thought process - Urinary Catheter Management Urethral Cath placed during this visit: yes Insertion date: 11/18/17 Insertion time: 09:50 Results - Laboratory Findings Laboratory: Laboratory Results - last 48 hr 11/21/17 11/21/17 11/21/17 10:53 14:22 17:07 WBC RBC Hgb Hct MCV MCH MCHC RDW Std Deviation Plt Count MPV Immature Gran % (Auto) Neut % (Auto) Lymph % (Auto) [place] % (Auto) Eos % (Auto) Baso % (Auto) Neut # (Auto) Lymph # (Auto) [place] # (Auto) Eos # (Auto) Baso # (Auto) Abs Immat Gran (auto) Neutrophils % (Manual) Band Neutrophils % Lymphocytes % (Manual) Monocytes % (Manual) Eosinophils % (Manual) Basophils % (Manual) Myelocytes % Neutrophils # (Manual) Band Neutrophils # Lymphocytes # (Manual) Monocytes # (Manual) Eosinophils # (Manual) Basophils # (Manual) Myelocytes # Anisocytosis RBC Morph Comment Turbidity < 20 Sodium 143 Potassium 4.6 Chloride 94 L Carbon Dioxide 39 H Anion Gap 10 BUN 32.0 H Creatinine 1.1 GFR Calculation 49 BUN/Creatinine Ratio 29 H Glucose 222 H Glucometer 197 305 Calculated Osmolality 289 H Calcium 9.7 Phosphorus Magnesium Icterus Index < 2 Albumin Specimen Hemolysis < 15 11/21/17 11/22/17 11/22/17 21:56 04:30 04:30 WBC 8.6 RBC 4.15 Hgb 12.5 Hct 39.7 MCV 95.7 MCH 30.1 MCHC 31.5 RDW Std Deviation 53.5 H Plt Count 285 MPV 9.5 Immature Gran % (Auto) Not performed Neut % (Auto) Not performed Lymph % (Auto) Not performed [place] % (Auto) Not performed Eos % (Auto) Not performed Baso % (Auto) Not performed Neut # (Auto) Not performed Lymph # (Auto) Not performed [place] # (Auto) Not performed Eos # (Auto) Not performed Baso # (Auto) Not performed Abs Immat Gran (auto) Not performed Neutrophils % (Manual) 69.0 H Band Neutrophils % 1.0 Lymphocytes % (Manual) 18.0 L Monocytes % (Manual) 8.0 Eosinophils % (Manual) 1.0 Basophils % (Manual) 2.0 Myelocytes % 1.0 H Neutrophils # (Manual) 5.9 Band Neutrophils # 0.1 Lymphocytes # (Manual) 1.5 Monocytes # (Manual) 0.7 Eosinophils # (Manual) 0.1 Basophils # (Manual) 0.2 Myelocytes # 0.1 Anisocytosis 1+ RBC Morph Comment Abnormal Turbidity < 20 Sodium 142 Potassium 3.9 Chloride 91 L Carbon Dioxide 41 H* Anion Gap 10 BUN 31.0 H Creatinine 1.2 GFR Calculation 44 BUN/Creatinine Ratio 26 Glucose 158 H Glucometer 177 Calculated Osmolality 283 H Calcium 9.6 Phosphorus 3.4 Magnesium 1.5 L Icterus Index < 2 Albumin 3.5 Specimen Hemolysis < 15 11/22/17 11/22/17 11/22/17 06:05 11:21 18:26 WBC RBC Hgb Hct MCV MCH MCHC RDW Std Deviation Plt Count MPV Immature Gran % (Auto) Neut % (Auto) Lymph % (Auto) [place] % (Auto) Eos % (Auto) Baso % (Auto) Neut # (Auto) Lymph # (Auto) [place] # (Auto) Eos # (Auto) Baso # (Auto) Abs Immat Gran (auto) Neutrophils % (Manual) Band Neutrophils % Lymphocytes % (Manual) Monocytes % (Manual) Eosinophils % (Manual) Basophils % (Manual) Myelocytes % Neutrophils # (Manual) Band Neutrophils # Lymphocytes # (Manual) Monocytes # (Manual) Eosinophils # (Manual) Basophils # (Manual) Myelocytes # Anisocytosis RBC Morph Comment Turbidity Sodium Potassium Chloride Carbon Dioxide Anion Gap BUN Creatinine GFR Calculation BUN/Creatinine Ratio Glucose Glucometer 160 149 235 Calculated Osmolality Calcium Phosphorus Magnesium Icterus Index Albumin Specimen Hemolysis 11/22/17 11/23/17 11/23/17 21:49 04:07 04:07 WBC 10.4 RBC 4.28 Hgb 12.7 Hct 40.3 MCV 94.2 MCH 29.7 MCHC 31.5 RDW Std Deviation 54.6 H Plt Count 312 MPV 9.8 Immature Gran % (Auto) Neut % (Auto) Lymph % (Auto) [place] % (Auto) Eos % (Auto) Baso % (Auto) Neut # (Auto) Lymph # (Auto) [place] # (Auto) Eos # (Auto) Baso # (Auto) Abs Immat Gran (auto) Neutrophils % (Manual) 82.0 H Band Neutrophils % 1.0 Lymphocytes % (Manual) 17.0 L Monocytes % (Manual) Eosinophils % (Manual) Basophils % (Manual) Myelocytes % Neutrophils # (Manual) 8.5 H Band Neutrophils # 0.1 Lymphocytes # (Manual) 1.8 Monocytes # (Manual) Eosinophils # (Manual) Basophils # (Manual) Myelocytes # Anisocytosis RBC Morph Comment Normal Turbidity < 20 Sodium 140 Potassium 3.9 Chloride 91 L Carbon Dioxide 40 H Anion Gap 9 BUN 43.0 H Creatinine 1.3 H D GFR Calculation 40 BUN/Creatinine Ratio 33 H Glucose 142 H Glucometer 198 Calculated Osmolality 282 H Calcium 9.4 Phosphorus 4.0 Magnesium 2.2 D Icterus Index < 2 Albumin 3.5 Specimen Hemolysis < 15 Assessment and Plan - Assessment and Plan 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 Bipap at noc 12, 18/5, Vt 350's, increase Ep to 7. Encourage increase mobility, up to EOB with all meals today, hopefully up to chair tomorrow. Currently on bumex gtt but primary changing to po as Cr increasing. On Bt's with albuterol q4hr, no wheezing noted. Check CXR in am, likely a good candidate for LTACH for further VT weaning. - Time Spent With Patient Total time spent is greater than 50% in coordination of care (as documented) at patient's floor/unit and/or counseling patient: less than 15 minutes
[2017-11-23] MEDS: POLYETHYL GLYCOL 3350 17gm PACKET PO SCH (09:24)
[2017-11-23] MEDS: Oxycodone *IR* 5 MG TABLET PO PRN ×2 (09:39→15:34)
--- NOTE | 2017-11-23 10:53 | Progress Note ---
- Date 11/23/17 Subjective: Patient was seen today in her room. She states she is breathing a little bit better. She had a large bowel movement this morning. She has a Wang catheter in place. Urine output has decreased since we discontinued Bumex drip. She has had occasional nausea but no vomiting. She has had no fevers or chills. She continues to have sciatica pain on the right currently at a 5 on a scale of 1-10 Objective Vital signs: Temperature 98.6 F 11/22/17 23:24 Pulse Rate 69 11/23/17 06:00 Respiratory Rate 16 11/23/17 08:17 Blood Pressure 108/52 11/23/17 06:00 Pulse Oximetry 95 11/23/17 09:44 Height/Weight/BMI: Height 1.5 m Weight 144.3 kg Body Mass Index 69.7 Comments: Weight today is 143.7 which is down 0.60 g from yesterday. Afebrile, heart rate 69, blood pressure 108/52, O2 sat 95%. She is now on 25 L high flow nasal cannula with FiO2 of 30% GEN-alert, oriented, no acute distress HEENT-oropharynx is moist NECK-supple CV-regular rate and rhythm CHEST-clear to auscultation anteriorly ABD-soft, nontender, obese, positive bowel sounds -Wang in place, urine is mildly dark EXT-no lower extremity edema NEURO-no focal deficits SKIN-warm and dry Results - Labs CBC & Chem 7: 11/23/17 04:07 11/23/17 04:07 Labs: Magnesium is 2.2. Calcium 9.4. Phosphorus 4.0. Microbiology Results: Microbiology 11/15/17 16:04 Urine, Voided (Cc/notcc) Urine Culture - Final No Growth After 2 Days - Impressions Chest x-ray is pending Assessment and Plan (1) Temporal arteritis Current visit: No Status: Chronic (2) Fibromyalgia Current visit: No Status: Chronic (3) Chronic steroid use Current visit: No Status: Chronic (4) Morbid obesity Current visit: No Status: Chronic (5) Diabetes mellitus type 2 in obese Current visit: No Status: Chronic (6) Presence of cardiac pacemaker Current visit: No Status: Chronic (7) Sepsis Problem details: severe as indicated by tachypnea, leukocytosis, elevated lactate 3.3 Current visit: No Status: Acute (8) GERD (gastroesophageal reflux disease) Current visit: No Status: Chronic (9) Chronic pain syndrome Current visit: No Status: Chronic (10) Pyelonephritis Current visit: Yes Status: Acute Assessment and Plan: Severe Sepsis 2/2 Pyelonephritis-Resolved -Flank pain, CT abd showed stranding on admission. -Renal ultrasound unremarkable -UA culture from 11/13 prior to admission revealed Enterobacter cloacae sensitive to cefepime and cipro -Received 3 days of Cefepime, now on cipro D7 -On day 10 of 14 days of antibiotics for pyelonephritis Acute on Chronic Hypoxic Hypercapnic Resp. failure -Possible pulmonary edema, O2 requirements are now improving after diuresis with a cumulative weight is down 13 kg -Unlikely pna as pt has no sx's and has procal that is low, CRP pending and no clear infiltrate -Now requiring bipap, likely obesity hypoventilation syndrome contributing -VQ scan-low prob of PE, LE doppler neg -BNP elevated at ~2500, order echo -Last echo showed EF 57% -Pulm consulted-worsening respiratory failure likely multifactorial with obesity , atelectasis, immobility and deconditioning, restrictive lung disease, possibly some pulmonary edema as well since the patient did discontinue Lasix weeks before admission. -Vapotherm initiated 11/20/2017 in CCU, will use BiPAP at night Possible pulmonary edema-LVH, possible diastolic heart failure -Echo revealed ejection fraction of 69%, left ventricular hypertrophy and technically difficult study -The patient had discontinued her Lasix 40 mg by mouth twice a day weeks before admission because of frequent urination. -IV Lasix given early in the hospital course, switched to Bumex drip on 2017 with good diuresis. Bumex discontinued the morning of 11/22/2017 due to increase in BUN and creatinine and signs of borderline hypovolemia -O2 requirements are now improving after diuresis with a cumulative weight is down 13 kg DARREL-Resolved -Cr peaked at 1.6, now 1.3 -Renal ultrasound unremarkable. Continue to monitor. DM -Blood sugars elevated but oral intake increasing -Increase Lantus to 35 units twice a day -Continue NovoLog with meals to 28 units 3 times a day (NovoLog 28U with breakfast at home, 30U BIDLS at home). (Levemir 45U twice a day at home). HTN -Continue home diltiazem, lisinopril - well controlled. Hypothyroid -Cont. home levo Afib -Unclear hx, has pacemaker but no anti-coagulation? -Continue to monitor closely on telemetry. Temporal Arteritis -Cont. home prednisone 20mg -Will not stress dose at this time -She has been on prednisone a couple of years by her account, would recommend titrating down when her acute medical illness has improved Chest pain, atypical and pleuritic-improved since admission -Suspect related to GI. -PPI for GERD. -Tums and maalox PRN. -EKGs stable, Troponin <0.012. Continue to monitor closely on telemetry. Ppx -Heparin -Protonix 11/23/2017 Impression and plan Overall, the patient is doing well. She diuresed well on Bumex drip. This was discontinued yesterday due to an increase in BUN, creatinine and CO2 on basic metabolic profile. She appears euvolemic at this time. We'll likely restart oral Bumex low-dose today. Await chest x-ray to follow-up on pulmonary edema. We were able to decrease Vapotherm today to 25 L/m. FiO2 is 30%. We are currently on day 10 of 14 days of antibiotics for pyelonephritis. Patient is doing well. She continues to have significant difficulties with generalized weakness. Will refer to select/LTAC for possible transfer. The patient is in agreement with this. Discussed with case management and MOSES Watson for Dr. Hubbard. Will increase Lantus insulin to 35 units twice a day regarding hyperglycemia. Continue BiPAP at night, patient is tolerating well. She will likely need a home vent regarding chronic CO2 retention, probable obesity hypoventilation syndrome. Await chest x-ray today. Check CBC and renal panel tomorrow. - Physician Narrative Narrative: Date: 11/23/17 Time: 1049 Hospital Course Summary Disclaimer: The visit summary below is not to be considered part of the above Progress Note. Hospital Course: 11/15/17 Pt overall improving with IV cefepime for pyelonephritis, Cr increased today, will do work up with kidney US and UA and give fluids and recheck labs. If pt stable and continues to improve, will consider switching to PO abx tomorrow. 11/16/17 Making slow gains. Leukocytosis resolved. Electrolytes stable. Persistent hyperglycemia though oral intake is decreased. Continue decreased home insulins with sliding scale and continue to monitor closely. UA culture from 11/13 prior to admission revealed Enterobacter cloacae. Repeat UA culture pending. Continue Cefepime IV and plan to discharge home on cipro. Anticipate discharge in near future, hopefully tomorrow 11/17/17. 11/17/17 Pt requiring more O2, cxr shows pulm edema, will do iv lasix. Changed IV abx to PO. [place] 11/18/[address] still not at baseline, hypercapnia likely 2/2 hypoventilation and hypoxia likely 2/2 to fluids, will do bipap and diuretics and monitor. 11/19/17 Pt still having acute on chronic hypercapnic hypoxic resp failure, likely 2/2 obesity hypoventilation syndrome. Now using bipap, diuretics don't seem to be helping, will consult pulm. 11/20/17 Resp distress is stable possibly a little worse, CXR still shows diffuse haziness. Will transfer pt to icu and start bumex drip to try to figure out if this is pulm edema. Pt has complex lung picture and it is unclear how much of it is her chronic issues getting worse and how much is acute pathology. Will monitor closely. 11/21/2017 Impression and plan The patient did tolerate Vapotherm and did not require BiPAP last night. This is an improvement because she was BiPAP dependent previously. Discussed today with Dr. Hubbard. We'll have the patient stay on Vapotherm as tolerated during the day and use BiPAP at night. The patient is diuresing well on Bumex drip. We'll repeat a basic metabolic profile at 2:00 this afternoon and determine if it should be continued at the same rate. Will increase insulin today due to hyperglycemia and improved appetite. Consider transfer to LTAC Thursday if still requiring Vapotherm. Consult PT and OT to help with mobility and with patient's sciatic pain. Continue Cipro for enterobacter pyelonephritis 11/22/2017 Impression and plan Overall, the patient is doing well. She was diuresing well on Bumex drip. BUN is stable at 31. Creatinine is up to 1.2. CO2 is 41. Will discontinue Bumex drip. Probably start oral Bumex tomorrow. Continue to monitor electrolytes closely. Weight is down 13 kg and I&O's are -5 L. We were able to titrate down the patient's oxygen on Vapotherm. She is tolerating BiPAP. Consideration for LTAC tomorrow to help with weaning. PT OT for help with mobility and strengthening Blood sugars are improved today after adjustment in insulin yesterday. They need further adjustment later today or tomorrow. Continue Cipro for UTI/pyelonephritis. She is currently on day 9 of appropriate antibiotics. Recheck CBC, renal panel, magnesium tomorrow. Greater than 40 minutes of critical care time spent seeing and evaluating the patient in determining care plan. Discussed care plan with her nurse.
--- NOTE | 2017-11-23 13:21 | XRay Report ---
EXAM: XR chest 1V LOCATION OF DICTATION: [facility] HISTORY: hypoxia COMPARISON: No prior studies available for comparison. FINDINGS: Numerous leads overlie the chest. Left-sided pacemaker leads overlie the right atrium and right ventricle. The heart is mildly enlarged. Central pulmonary vasculature is mildly prominent though improved from two days earlier. Improved aeration with minimal residual interstitial opacities demonstrated within the lungs. Small residual left pleural effusion suggested. The osseous structures are within normal limits for the patient's age. IMPRESSION: 1. Decreased pulmonary vascular congestion and interstitial edema with stable small residual left-sided pleural effusion. .
[2017-11-23] MEDS ORDERED: METOCLOPRAMIDE 10mg/2ml INJECTION IVP PRN (13:47)
[2017-11-23] MEDS: INSULIN ASPART 100unit/ml INJECTION SQ PRN ×2 (14:31→20:45)
--- NOTE | 2017-11-23 15:32 | Discharge Summary ---
Discharge Information Date of admission: 11/14/17 03:59 Anticipated date of discharge: 11/23/17 Attending Physician: Rose Mary Lacey MD Primary care physician: Nikolas Gann MD Consults: 11/19/17 12:32 Physician Consult [CONS] Routine Consulting Provider: Benigno Hubbard Reason For Exam: hypoxia Ordering Provider has Notified [employer]er: Yes - Discharge Diagnosis (1) Temporal arteritis Status: Chronic (2) Fibromyalgia Status: Chronic (3) Chronic steroid use Status: Chronic (4) Morbid obesity Status: Chronic (5) Diabetes mellitus type 2 in obese Status: Chronic (6) Presence of cardiac pacemaker Status: Chronic (7) Sepsis Status: Acute (8) GERD (gastroesophageal reflux disease) Status: Chronic (9) Chronic pain syndrome Status: Chronic (10) Pyelonephritis Status: Acute Pyelonephritis with Enterobacter cloacae sensitive to cefepime and Cipro Severe sepsis-resolved Acute on chronic hypoxic (2 L O2 at home) and hypercapnic respiratory failure- acquiring Vapotherm high flow nasal cannula during the day and BiPAP at night Probable obesity hypoventilation syndrome Pulmonary edema-weight has improved from 158 kg on admission down to 143 kg at discharge with diuresis LVH-possible diastolic heart failure Acute kidney injury-improved Type 2 diabetes mellitus Hypertension Hypothyroid History of A. fib-that is post ablation per patient Temporal arteritis for which she is on chronic prednisone currently at 20 mg daily. Chest wall pain secondary to fall Morbid obesity Chronic right sciatica pain - Procedures Procedures: Vapotherm high flow nasal cannula initiated 11/20/2017 BiPap at at bedtime - Laboratory Labs: 11/23/17 04:07 11/23/17 04:07 On admission 11/14/2017 white count was 14.3, hemoglobin 12.8, platelets 185. ABG on 11/19/2017 revealed pH 7.38, PCO2 57, PO2 69 on BiPAP with FiO2 of 35%. ABG on 11/18/2017 revealed pH 7.3, PCO2 65, PO2 85 on 15 L nonrebreather mask Lactate on admission 3.3 improved to 1.8. When A1c 8.8. Troponin normal 3. Reactive protein 60.9 Laboratory Tests 11/15/17 11/20/17 11/20/17 16:04 04:23 04:25 Total Bilirubin 0.40 Icterus Index < 2 AST 31 ALT 33 Alkaline Phosphatase 52 NT-Pro-B Natriuret Pep 1710 H Total Protein 6.5 Albumin 3.2 L Globulin 3.3 Albumin/Globulin Ratio 1.0 L Ur Leukocyte Esterase 3+ A Urine RBC 5-10 H Urine WBC 50-200 H Urine Bacteria 2+ H - Microbiology Microbiology 11/15/17 16:04 Urine, Voided (Cc/notcc) Urine Culture - Final No Growth After 2 Days Urine culture 11/13/2017 showed Enterobacter sensitive to cefepime, Cipro, gentamicin, Levaquin, tobramycin, Bactrim and Zosyn. Resistant to Augmentin, cefazolin, nitrofurantoin. Intermediate to Rocephin. Cultures 2 on 11/13/2017 were negative after 5 days - Radiology Radiology: CT chest 11/14/2017 showed mild basilar pneumonia or atelectasis with a trace right effusion. Renal ultrasound 11/15/2017 showed no gross hydronephrosis. Chest x-ray 11/16/2017 revealed mild CHF Venous Doppler 11/18/2017 showed no evidence of acute DVT in either leg VQ scan 11/19/2017 showed low probability lung VQ scan for pulmonary embolus Chest x-ray 11/23/2017 reveals decreased pulmonary vascular congestion and interstitial edema with stable small residual left-sided pleural effusion Date of Exam: 11/20/17 Type of Exam(s): US echo doppler complete DATE OF PROCEDURE November 20, 2017 this is a two-dimensional echo with spectral Doppler, color-flow and M-mode. It was obtained in a patient with lower extremity edema. This was a technically very difficult study. Left atrium is dilated. Left ventricle end-diastolic dimension is normal. Left ventricle wall thickness is increased. LV systolic function is grossly normal with ejection fraction of about 69%. Right atrium is dilated. Right ventricle is normal. Aortic root dimension is normal. Mitral valve is morphologically normal with mild mitral regurgitation. Aortic valve was not visualized well. Tricuspid valve shows mild tricuspid regurgitation with normal estimated pulmonary artery systolic pressure of 31. Pulmonary valve shows no pulmonary insufficiency but it was not visualized well. There is no pericardial effusion. IMPRESSION 1. Technically difficult study. 2. Grossly normal LV systolic function with ejection fraction of 69%. 3. Biatrial dilation. 4. Left ventricular hypertrophy. 5. Pacemaker present in right heart. 6. Mild mitral regurgitation. 7. Trace of tricuspid regurgitation with normal estimated pulmonary artery systolic pressure of 31. History of Present Illness HPI: reports she had low back pain that started yesterday along with nausea , also reports chills. Pt denies any fever, cp. Pt has hx of chronic UTI's and is on abx chronically. Pt reports feeling better this am. Back pain has improved and nausea is resolved. HPI from overnight: 72-year-old female presents to the emergency room for the third time in 2 days . Was seen earlier this evening diagnosed with UTI given a dose of Rocephin and discharged with antibiotics. Apparently at home she was so weak she fell wedge herself and her bed and her nightstand. states she had taken a Percocet, was out of it a bit and when she sat she missed the bed. , EMS had to extricate her from that situation , upon further evaluation in the emergency room her lactate was elevated at 3.3. She also previously complained of constipation, CAT scan performed demonstrated left kidney inflammation. but no sig constipation Yesterday presented to ER with chest pain dx costochondritis. She is complaining of a little pain on right side of chest Denies cough prod sputum, always on 2L O2, she is always in pain anant in back b/ c of PMR sugars have been in 200s today, has not taken any insulin b/c of illness, having dry heaves "today" (Thursday) Objective Vital signs: Temperature 98.7 F 11/23/17 08:00 Pulse Rate 70 11/23/17 12:00 Respiratory Rate 18 11/23/17 15:00 Blood Pressure 103/56 11/23/17 11:04 Pulse Oximetry 91 11/23/17 15:00 Height/Weight/BMI: Height 1.5 m Weight 143.7 kg Body Mass Index 69.7 Hospital Course This is a general summary of the patient's hospital course. For more details refer to the complete medical record. Hospital course: 11/15/17 Pt overall improving with IV cefepime for pyelonephritis, Cr increased today, will do work up with kidney US and UA and give fluids and recheck labs. If pt stable and continues to improve, will consider switching to PO abx tomorrow. 11/16/17 Making slow gains. Leukocytosis resolved. Electrolytes stable. Persistent hyperglycemia though oral intake is decreased. Continue decreased home insulins with sliding scale and continue to monitor closely. UA culture from 11/13 prior to admission revealed Enterobacter cloacae. Repeat UA culture pending. Continue Cefepime IV and plan to discharge home on cipro. Anticipate discharge in near future, hopefully tomorrow 11/17/17. 11/17/17 Pt requiring more O2, cxr shows pulm edema, will do iv lasix. Changed IV abx to PO. Monito 11/18/[address] still not at baseline, hypercapnia likely 2/2 hypoventilation and hypoxia likely 2/2 to fluids, will do bipap and diuretics and monitor. 11/19/17 Pt still having acute on chronic hypercapnic hypoxic resp failure, likely 2/2 obesity hypoventilation syndrome. Now using bipap, diuretics don't seem to be helping, will consult pulm. 11/20/17 Resp distress is stable possibly a little worse, CXR still shows diffuse haziness. Will transfer pt to icu and start bumex drip to try to figure out if this is pulm edema. Pt has complex lung picture and it is unclear how much of it is her chronic issues getting worse and how much is acute pathology. Will monitor closely. 11/21/2017 Impression and plan The patient did tolerate Vapotherm and did not require BiPAP last night. This is an improvement because she was BiPAP dependent previously. Discussed today with Dr. Hubbard. We'll have the patient stay on Vapotherm as tolerated during the day and use BiPAP at night. The patient is diuresing well on Bumex drip. We'll repeat a basic metabolic profile at 2:00 this afternoon and determine if it should be continued at the same rate. Will increase insulin today due to hyperglycemia and improved appetite. Consider transfer to LTAC Thursday if still requiring Vapotherm. Consult PT and OT to help with mobility and with patient's sciatic pain. Continue Cipro for enterobacter pyelonephritis 11/22/2017 Impression and plan Overall, the patient is doing well. She was diuresing well on Bumex drip. BUN is stable at 31. Creatinine is up to 1.2. CO2 is 41. Will discontinue Bumex drip. Probably start oral Bumex tomorrow. Continue to monitor electrolytes closely. Weight is down 13 kg and I&O's are -5 L. We were able to titrate down the patient's oxygen on Vapotherm. She is tolerating BiPAP. Consideration for LTAC tomorrow to help with weaning. PT OT for help with mobility and strengthening Blood sugars are improved today after adjustment in insulin yesterday. They need further adjustment later today or tomorrow. Continue Cipro for UTI/pyelonephritis. She is currently on day 9 of appropriate antibiotics. Recheck CBC, renal panel, magnesium tomorrow. Greater than 40 minutes of critical care time spent seeing and evaluating the patient in determining care plan. Discussed care plan with her nurse. 11/23/2017 Impression and plan Overall, the patient is doing well. She diuresed well on Bumex drip. This was discontinued yesterday due to an increase in BUN, creatinine and CO2 on basic metabolic profile. She appears euvolemic at this time. Restart home dose Lasix and potassium tomorrow. Chest x-ray today shows decreased pulmonary vascular congestion and interstitial edema with stable small residual left-sided pleural effusion. We were able to decrease Vapotherm today to 25 L/m. FiO2 is 30%. Received 3 days of Cefepime initially, now on cipro D7. We are currently on day 10 of 14 days of antibiotics for pyelonephritis. Patient is doing well. She continues to have significant difficulties with generalized weakness. Will refer to [facility] for possible transfer. The patient is in agreement with this. Discussed with case management and MOS[facility] Watson for Dr. Hubbard. Will increase Lantus insulin to 35 units twice a day regarding hyperglycemia. Continue BiPAP at night, patient is tolerating well. She will likely need a home vent regarding chronic CO2 retention, probable obesity hypoventilation syndrome. The patient was evaluated by [facility] for acute on chronic hypoxic and hypercapnic respiratory failure requiring high flow nasal cannula during the day and BiPAP at night as well as significant generalized weakness. She was accepted at [facility]. She will go by ambulance with BiPAP today. Time spent with patient: discharge greater than 30 minutes Resuscitation Status: Full Code Discharge Plan - Discharge Disposition Disposition: Acute Care Hosp, Other *Condition: Improved Reason For Visit (Visit label in EMR): pyelonephritis, Sepsis and respiratory failure - Discharge Medications *Discharge Medications: New Ciprofloxacin [Cipro 500 mg] 500 mg PO 0700,2300 tablet Glucose Oral Gel 40% [Glutose 15] 37.5 gm PO PRN PRN tube PRN Reason: Hypoglycemia Insulin Aspart [NovoLOG] 28 unit SQ TIDWM vial Insulin Glargine,Hum.rec.anlog [Lantus] 35 unit SQ BID vial Mag-Al + Sim Oral Liq [Maalox Plus] 30 ml PO Q4H PRN udc PRN Reason: Indigestion Metoclopramide [Reglan] 10 mg IVP Q6H PRN vial PRN Reason: Nausea Oxycodone *IR* [Roxicodone *Ir*] 10 mg PO Q4H PRN tablet PRN Reason: Pain Heparin Sq 5,000 units SQ Q8HR vial Continue Magnesium Oxide [Magnesium] 400 mg PO DAILY dilTIAZem HCl [Cartia Xt] 240 mg PO BID Furosemide [Lasix 40 mg Tab] 40 mg PO BID DiphenhydrAMINE [Benadryl] 25 mg PO HS Multivit,Calc,Mins/Iron/Folic [Women's Daily Caplet] 1 tab PO DAILY Lisinopril [Prinivil] 10 mg PO DAILY Levothyroxine Sodium 150 mcg PO ACB Pantoprazole Tab [Protonix Tab] 40 mg PO ACB PredniSONE [Deltasone 20 mg] 20 mg PO WB Potassium Chloride 10 meq PO WB Vit C/E/Zn/Coppr/Lutein/Zeaxan [Preservision Areds 2 Softgel] 1 cap PO BID Tizanidine [Zanaflex] 4 mg PO HS Tizanidine [Zanaflex] 4 mg PO DAILY PRN PRN Reason: Prn Orders Tramadol [Ultram] 50 mg PO HS Sucralfate [Carafate] 1 gm PO QID Niacin 150 mg PO HS Cholecalciferol (Vitamin D3) [Vitamin D3] 1,000 unit PO TID Docusate Sodium [Colace] 200 mg PO DAILY PRN PRN Reason: Constipation polyethylene glycol 3350 17 gram/dose oral powder 17 g PO DAILY #119 g Discontinued Insulin Aspart [Novolog Flexpen] 30 unit SQ BIDLS Nitrofurantoin Macrocrystal [Nitrofurantoin] 100 mg PO DAILY Insulin Detemir [Levemir Flextouch] 45 unit SQ BID Ondansetron Tab [Zofran Po] 4 mg PO Q6HR #30 tab Insulin Aspart [Novolog Flexpen] 28 unit SQ WB CephALEXin [Keflex 500 mg] 1,000 mg PO BID #40 cap - Discharge Packet/Instructions *Diet: Diabetic diet *Activity: Up with assist as tolerated *Pain Management/Treatment: Zanaflex or oxycodone as needed *Wound Care: Not applicable *Expected Signs/Symptoms: Your weakness and difficulty breathing should improve *Notify Physician if: Not applicable *During Business Hours Contact: Call Dr. Gann's office *After Business Hours Contact: Call [facility] at [phone] Gann paged *Pending Lab/Results: No Pending Lab - Referrals/Follow Up *Referrals/Follow Up: Nikolas Gann MD [Primary Care Provider] - - Patient Handouts Patient Handouts: Sepsis (GEN) - Dismissal Complete Discharge Instructions are:: Complete Physician Narrative - Narrative Attestation Narrative: Date: 11/23/17 Time: [id number]
[2017-11-23] MEDS ORDERED: FUROSEMIDE 40 MG TABLET PO SCH (18:01)
[2017-11-23] MEDS: DiphenhydrAMINE 25 MG CAPSULE PO SCH (20:37)
[2017-11-23] MEDS: TRAMADOL 50 MG TABLET PO SCH (20:37)
[2017-11-24] MEDS: HEPARIN SUB-Q 5,000units/0.5ml INJECTION SQ SCH ×2 (01:03→08:29)
[2017-11-24] MEDS ORDERED: NS FLUSH BAG 500ml IV ONE (02:47)
[2017-11-24] MEDS: ALBUTEROL 2.5mg/3ml (0.083%) NEB AEROSOL SCH ×3 (03:26→10:20)
[2017-11-24 04:12] VITALS: TEMP 98.4
[2017-11-24 05:04] VITALS: PULSE 69
[2017-11-24] MEDS: INSULIN ASPART 100unit/ml INJECTION SQ PRN (06:18)
[2017-11-24] MEDS: LEVOTHYROXINE 150 MCG TABLET PO SCH (06:19)
[2017-11-24] MEDS: CIPROFLOXACIN 500 MG TABLET PO SCH (06:19)
[2017-11-24] MEDS: Oxycodone *IR* 5 MG TABLET PO PRN ×2 (06:19→12:55)
[2017-11-24] MEDS: SUCRALFATE 1 GM TABLET PO SCH (06:19)
[2017-11-24] MEDS: PANTOPRAZOLE 20 MG TABLET PO SCH (06:19)
[2017-11-24 07:03] VITALS: BP 117/56
[2017-11-24] MEDS: INSULIN ASPART 100unit/ml INJECTION SQ SCH (08:27)
[2017-11-24] MEDS: INSULIN GLARGINE 100unit/ml INJECTION SQ SCH (08:27)
[2017-11-24] MEDS: NIACIN 100 MG PO SCH (08:28)
[2017-11-24] MEDS: MULTI-VIT + MINERAL (Opti-gen) TABLET PO SCH (08:29)
[2017-11-24] MEDS: LISINOPRIL 10 MG TABLET PO SCH (08:29)
[2017-11-24] MEDS: PredniSONE 20 MG TABLET PO SCH (08:29)
[2017-11-24] MEDS: MULTI-VITAMIN + MINERAL TABLET PO SCH (08:30)
[2017-11-24] MEDS: POLYETHYL GLYCOL 3350 17gm PACKET PO SCH (08:30)
[2017-11-24] MEDS: MAGNESIUM OXIDE 400 MG TABLET PO SCH (08:30)
--- NOTE | 2017-11-24 09:03 | XRay Report ---
Indication: pulmonary edema PROCEDURE: XR chest 1V: Encounter: Initial Comparison: November 23, 2017 Findings: Lungs are stable in appearance with interstitial prominence. Small left pleural effusion is unchanged. No pneumothorax. Heart size and mediastinal contours are stable. Left pacemaker. Impression: No change. .
--- NOTE | 2017-11-24 09:26 | Progress Note ---
- Date 11/24/17 Subjective: The patient was seen this morning in her room. She had plans to transfer to [facility] yesterday but transportation could not be arranged. Plans are for her to go today at noon. She states she is feeling okay. She did have hypotension last night with blood pressure into the 70s she was given a 500 cc normal saline bolus. She denies any lightheadedness at this time. She already received her morning lisinopril and Cardizem before I arrived this morning. She is eating about 50% of her meals. She still has some nausea, most likely secondary to Cipro. She has 3 more days of Cipro for treatment of pyelonephritis. She denies any lightheadedness. She feels short of breath at times. She is still on Vapotherm high flow nasal cannula with FiO2 of 30%. She had 2 large bowel movements yesterday. He complains of chronic right sciatica pain She has a Wang catheter in place and notices some mild irritation from the Wang. Objective Vital signs: Temperature 98.4 F 11/24/17 04:00 Pulse Rate 69 11/24/17 07:00 Respiratory Rate 19 11/24/17 07:00 Blood Pressure 117/56 11/24/17 07:00 Pulse Oximetry 91 11/24/17 07:00 Height/Weight/BMI: Height 1.5 m Weight 143.7 kg Body Mass Index 69.7 Comments: I&O 360/959 Blood pressure last night was as low as 74/39. She received half a liter of normal saline and pressure improved to 127/69. Current blood pressure is 109/ 57. Heart rate 69. O2 sat 93% on Vapotherm with flow with 25 L/m and FiO2 of 30% . GEN-alert, oriented, no acute distress HEENT-sclera anicteric, oropharynx is moist NECK-supple CV-regular rate and rhythm CHEST-clear to auscultation anteriorly ABD-soft, obese, nontender with positive bowel sounds -Wang in place with good urine output this morning. EXT-no edema in the extremities NEURO-no focal deficits SKIN-warm and dry. Skin on her feet is quite wrinkly post diuresis with improvement of lower extremity edema Results - Labs CBC & Chem 7: 11/24/17 04:01 11/24/17 04:01 Labs: AST is 44, AST 39, calcium 9.0 Microbiology Results: Microbiology 11/15/17 16:04 Urine, Voided (Cc/notcc) Urine Culture - Final No Growth After 2 Days Assessment and Plan (1) Temporal arteritis Current visit: No Status: Chronic (2) Fibromyalgia Current visit: No Status: Chronic (3) Chronic steroid use Current visit: No Status: Chronic (4) Morbid obesity Current visit: No Status: Chronic (5) Diabetes mellitus type 2 in obese Current visit: No Status: Chronic (6) Presence of cardiac pacemaker Current visit: No Status: Chronic (7) Sepsis Problem details: severe as indicated by tachypnea, leukocytosis, elevated lactate 3.3 Current visit: No Status: Acute (8) GERD (gastroesophageal reflux disease) Current visit: No Status: Chronic (9) Chronic pain syndrome Current visit: No Status: Chronic (10) Pyelonephritis Current visit: Yes Status: Acute Assessment and Plan: 11/24/2017 Impression Pyelonephritis with Enterobacter cloacae sensitive to cefepime (received 3 days ) and Cipro (received 8 days)-currently on day 11 of 14 of antibiotics for pyelonephritis Severe sepsis-resolved Acute on chronic hypoxic (2 L O2 at home) and hypercapnic respiratory failure- acquiring Vapotherm high flow nasal cannula during the day and BiPAP at night Probable obesity hypoventilation syndrome Pulmonary edema-weight has improved from 158 kg on admission down to 143 kg at discharge with diuresis She had acute kidney injury on admission with creatinine of 1.6. Creatinine did improve to 0.9 on 11/20/2017 but has been steadily increasing with diuresis and is 1.4 today.. BUN has been steadily increasing with diuresis and was 51 last night. She did have hypotension last night and diuretics were held today. She received a 500 cc normal saline bolus last night. Urine output this morning is good. LVH-possible diastolic heart failure Type 2 diabetes mellitus Hypertension Hypothyroid History of A. fib-that is post ablation per patient Temporal arteritis for which she is on chronic prednisone currently at 20 mg daily. Chest wall pain secondary to fall Morbid obesity Chronic right sciatica pain Nausea likely secondary to Cipro Plan Overall, the patient is doing well. She diuresed well on Bumex drip. This was discontinued 11/21/2017 due to an increase in BUN, creatinine and CO2 on basic metabolic profile. Further diuretics are on hold. She received 1 dose of Lasix last night and was hypotensive last night. This resolved after 500 cc normal saline bolus. Will need to monitor renal function closely at [facility]. We are currently on day 11 of 14 days of antibiotics for pyelonephritis. Patient is doing well. She continues to have significant difficulties with generalized weakness. [facility] today for help with weaning off of Vapotherm. The patient is in agreement with this. Continue BiPAP at night, patient is tolerating well. She will likely need a home vent regarding chronic CO2 retention, probable obesity hypoventilation syndrome. Await chest x-ray today. Check CBC and renal panel tomorrow. DVT Prophylaxis: SQ Heparin Resuscitation Status: Full Code - Physician Narrative Narrative: Date: 11/24/17 Time: 916 Hospital Course Summary Disclaimer: The visit summary below is not to be considered part of the above Progress Note. Hospital Course: 11/15/17 Pt overall improving with IV cefepime for pyelonephritis, Cr increased today, will do work up with kidney US and UA and give fluids and recheck labs. If pt stable and continues to improve, will consider switching to PO abx tomorrow. 11/16/17 Making slow gains. Leukocytosis resolved. Electrolytes stable. Persistent hyperglycemia though oral intake is decreased. Continue decreased home insulins with sliding scale and continue to monitor closely. UA culture from 11/13 prior to admission revealed Enterobacter cloacae. Repeat UA culture pending. Continue Cefepime IV and plan to discharge home on cipro. Anticipate discharge in near future, hopefully tomorrow 11/17/17. 11/17/17 Pt requiring more O2, cxr shows pulm edema, will do iv lasix. Changed IV abx to PO. Monito 11/18/[address] still not at baseline, hypercapnia likely 2/2 hypoventilation and hypoxia likely 2/2 to fluids, will do bipap and diuretics and monitor. 11/19/17 Pt still having acute on chronic hypercapnic hypoxic resp failure, likely 2/2 obesity hypoventilation syndrome. Now using bipap, diuretics don't seem to be helping, will consult pulm. 11/20/17 Resp distress is stable possibly a little worse, CXR still shows diffuse haziness. Will transfer pt to icu and start bumex drip to try to figure out if this is pulm edema. Pt has complex lung picture and it is unclear how much of it is her chronic issues getting worse and how much is acute pathology. Will monitor closely. 11/21/2017 Impression and plan The patient did tolerate Vapotherm and did not require BiPAP last night. This is an improvement because she was BiPAP dependent previously. Discussed today with Dr. Hubbard. We'll have the patient stay on Vapotherm as tolerated during the day and use BiPAP at night. The patient is diuresing well on Bumex drip. We'll repeat a basic metabolic profile at 2:00 this afternoon and determine if it should be continued at the same rate. Will increase insulin today due to hyperglycemia and improved appetite. Consider transfer to LTAC Thursday if still requiring Vapotherm. Consult PT and OT to help with mobility and with patient's sciatic pain. Continue Cipro for enterobacter pyelonephritis 11/22/2017 Impression and plan Overall, the patient is doing well. She was diuresing well on Bumex drip. BUN is stable at 31. Creatinine is up to 1.2. CO2 is 41. Will discontinue Bumex drip. Probably start oral Bumex tomorrow. Continue to monitor electrolytes closely. Weight is down 13 kg and I&O's are -5 L. We were able to titrate down the patient's oxygen on Vapotherm. She is tolerating BiPAP. Consideration for LTAC tomorrow to help with weaning. PT OT for help with mobility and strengthening Blood sugars are improved today after adjustment in insulin yesterday. They need further adjustment later today or tomorrow. Continue Cipro for UTI/pyelonephritis. She is currently on day 9 of appropriate antibiotics. Recheck CBC, renal panel, magnesium tomorrow. Greater than 40 minutes of critical care time spent seeing and evaluating the patient in determining care plan. Discussed care plan with her nurse. 11/23/2017 Impression and plan Overall, the patient is doing well. She diuresed well on Bumex drip. This was discontinued yesterday due to an increase in BUN, creatinine and CO2 on basic metabolic profile. She appears euvolemic at this time. Restart home dose Lasix and potassium tomorrow. Chest x-ray today shows decreased pulmonary vascular congestion and interstitial edema with stable small residual left-sided pleural effusion. We were able to decrease Vapotherm today to 25 L/m. FiO2 is 30%. Received 3 days of Cefepime initially, now on cipro D7. We are currently on day 10 of 14 days of antibiotics for pyelonephritis. Patient is doing well. She continues to have significant difficulties with generalized weakness. [facility]. The patient is in agreement with this. Discussed with case management and [facility] for Dr. Hubbard. Will increase Lantus insulin to 35 units twice a day regarding hyperglycemia. Continue BiPAP at night, patient is tolerating well. She will likely need a home vent regarding chronic CO2 retention, probable obesity hypoventilation syndrome. The patient was evaluated by [facility] for acute on chronic hypoxic and hypercapnic respiratory failure requiring high flow nasal cannula during the day and BiPAP at night as well as significant generalized weakness. She was accepted at [facility]. She will go by ambulance with BiPAP today.
[2017-11-24 10:36] VITALS: RESP 12; O2SAT 96
== END 2017-11-24 13:19 | DRG 871 ==
LOC: ED 01:19 → EDHOLD 03:59 → SUATTDRO 03:59 → MED 04:55 → CCU 11-20 16:00
PROVIDERS: ADMIT Pediatrics; ATTEND Internal Medicine